=== PATIENT | male | born 1950 | race Caucasian/White ===

== ENCOUNTER 2023-06-22 12:42 | Outpatient (OUT) | payer OTHER, SELFPAY ==
--- NOTE | 2023-06-22 13:32 | P.CN_ITS ---
Consult Note: HPI Data of Consult Patient: new to practice Consult date: 06/22/23 Requesting Physician: Kelley Richard NP Primary Care Provider: Non-Staff Physician, MD Consult Narrative Reason for consult: establish left hip/thigh pain Narrative: Yang Card a pleasant 72 year old male presents for evaluation and management of chronic left hip and thigh pain. Reports a fall from 40ft at age 10 with worsening pain over time. Most significantly increasing over the last few months. Today pain 6/10 sharp shooting radiating to left outer thigh. Pain increased with standing, walking, getting out of a chair, stairs, ADLs, activity, rolling over in bed. Pain improved with ice, lying down, sitting. Recent EMG completed and xray imaging but no results available. Unfortunately has attempted MRIs twice but could not tolerate. Attended PT at [facility] with benefit while engaged, no ongoing improvement. On eliquis, cannot take NSAIDs. Most recently 5+ falls, reports loss os strength and hx of RLS. Hx of polio affecting right leg. In the past he has attempted numerous MRIs and CT scans of lumbar spine but has not been able to complete the imaging. cc:: CC: Kelley Richard NP Review of Systems 2 ROS0 Status of ROS 10 or more systems reviewed and unremark able except as noted in history and below Musculoskeletal Reports: extremity pain and joint pain Meds Home Medications and Allergies Home Medications ?Medication ?Instructions ?Recorded ?Confirmed ?Type allopurinol 100 mg tablet 100 mg PO DAILY 06/22/23 06/22/23 History apixaban 5 mg tablet (Eliquis) 5 mg PO BID 06/22/23 06/22/23 History ascorbic acid (vitamin C) 500 mg 500 mg PO DAILY 06/22/23 06/22/23 History chewable tablet atorvastatin 10 mg tablet 10 mg PO DAILY 06/22/23 06/22/23 History cholecalciferol (vitamin D3) 25 1,000 unit PO DAILY 06/22/23 06/22/23 History mcg (1,000 unit) tablet (Vitamin D3) hydrocodone 5 mg-acetaminophen 325 1 tab PO BID PRN pain #14 tabs 06/22/23 Rx mg tablet losartan 50 mg-hydrochlorothiazide 1 tab PO DAILY 06/22/23 06/22/23 History 12.5 mg tablet metformin 500 mg tablet 500 mg PO BID 06/22/23 06/22/23 History metoprolol tartrate 25 mg tablet 12.5 mg PO BID 06/22/23 06/22/23 History omeprazole 20 mg capsule,delayed 20 mg PO DAILY 06/22/23 06/22/23 History release ropinirole 1 mg tablet 1.5 mg PO DAILY 06/22/23 06/22/23 History tamsulosin 0.4 mg capsule 0.4 mg PO DAILY 06/22/23 06/22/23 History Exam Constitutional Documenting provider has reviewed patient's vital signs: yes Common normals: no apparent distress, oriented x3, healthy appearing, alert and well nourished General appearance: cooperative HENMT Common normals: normocephalic, hearing grossly normal bilaterally and moist oral mucous membranes Head and scalp: normocephalic Eye Common normals: PERRL Pupil: PERRL Neck & C-Spine Common normals: full ROM General: normal visual inspection Chest Common normals: inspection of chest normal Respiratory Common normals: normal respiratory effort, no retractions and no use of accessory muscles Back & Pelvis Lumbar spine/lower back: lumbar ROM normal and straight leg raise negative bilaterally Other: decreased sensation to left lateral thigh strength 4/5 in BLE unable to produce radicular pain Extremity Common normals: normal to inspection and full ROM Other: left hip no pain with internal or external rotation left hip pain following lateral femoral cutaneous nerve Extremity image (front): 2 1. altered sensation increase in sharp shooting pain Neuro Common normals: oriented x3, CN's II-XII intact bilaterally, moves all extremities, no focal motor deficits, no sensory deficits noted and deep tendon reflexes 2+ bilaterally Sensorium/orientation: alert Motor exam: strength 5/5 throughout and no movement abnormalities noted Psych Common normals: mental status grossly normal, thought process normal, cooperative, affect normal, speech normal and activity/motor behavior normal Speech: normal speech Thought process: normal thought process Results Additional Findings Additional findings: If on a controlled substance or opioids, I have checked an OARRS report on this patient and there are no aberrancies noted in the prescribing history.??If on a controlled substance or opioid a drug screen was completed and reviewed within the last year, and if there has not been a drug screen completed we ordered one today to monitor higher risk, state monitored pain medication use. As part of providing excellent, safe, comprehensive care, the following was completed at our patient's visit: 1. A medication reconciliation and review to ensure accurate knowledge of current/active medications, including asking our patients to inform us about any jhwd-sgi-wfyomqm medications or herbal remedies/nutritional supplements/alternative remedies. 2. A review to specifically ensure our patients have had annual screening for screening for depression, screening for tobacco use, and screening for unhealthy alcohol use. For concerning screenings had a discussion with the patient, provided patient education, and recommended follow-up with primary care provider when appropriate. If patient noted with a risk of falling, they received education on strength, gait, and balance training to prevent future risk of falling. Assessment and Plan Assessment and Plan (1) Meralgia paresthetica of left side: (2) Lumbar stenosis with neurogenic claudication: (3) Chronic prescription opiate use: Assessment and Plan: I feel these medications are improving the patient's quality of life and allow them to tolerate activities of daily living as well as participate in recreational activity.? The patient does not report intolerable side effects. The patient is NOT opioid naive and non-pharmacologic and non-opioid treatment has failed to significantly relieve the patient's pain and improve functionality. The patient has a diagnosis that is related to a somatic or visceral pain etiology. ? ?? I reviewed with the patient the potential risks and side effects with the use of? opioid medications including but not limited to respiratory depression,? sedation, and even . I verified the patient has access to naloxone should? these effects occur. I advised the patient to avoid the use of any other? sedation substances including alcohol, THC, and benzodiazepines while? taking opioid medications due to the risk of compounding side effects and? detrimental outcomes. I reviewed the [employer], pain treatment agreement, urine? drug screen, and opioid start talking forms. The patient was advised to let? their family know they had Naloxone in case they would need to administer? the medication.? ?? A drug screen was completed within the last year, and no aberrancies were noted regarding their use of controlled substances. The patient understands they are subject to the terms and conditions of the pain contract that they have signed. ? ?? I have checked an OARRS report on this patient today and there are no aberrancies noted in the prescribing history.? Plan left lateral femoral cutaneous nerve block working towards RFA under fluoroscopy continue HEP as tolerated we will update UDS and take over norco 5-325mg BID PRN 1 week trial. plan to refill 30 day supply after reviewing UDS and prescribe narcan which was discussed today consider lumbar MRI or CT at [facility] to further evaluate lumbar stenosis with NC if needed f/u 1 week after injection
== END 2023-06-22 12:43 ==
PROVIDERS: Visit Provider Nurse Practitioner
DX: G57.12 Meralgia paresthetica, left lower limb (principal); M48.062 Spinal stenosis, lumbar region with neurogenic claudication; Z79.891 Long term (current) use of opiate analgesic
CPT/HCPCS: G0463

== ENCOUNTER 2023-07-24 10:25 | Day surgery (SDC) | payer OTHER, SELFPAY ==
[2023-07-24 11:35] VITALS: BP 167/93; PULSE 71; TEMP 36.3; O2SAT 5
[2023-07-24 11:43] LABS: Glucometer 131 mg/dL (74-106)
[2023-07-24] MEDS: TRIAMCINOLONE ACETONIDE 40 MG/ML VIAL INJ (12:17)
[2023-07-24] MEDS: LIDOCAINE HCL 2% PF 100 MG/5 ML VIAL INJ (12:17)
[2023-07-24] MEDS: BUPIVACAINE HCL 0.25% PF 25 MG/10 ML VIAL INJ (12:17)
[2023-07-24 12:25] VITALS: BP 152/69; BP 159/69; PULSE 79; PULSE 82; O2SAT 97; O2SAT 99
--- NOTE | 2023-07-24 12:25 | W.PM.PROCNOT ---
Date of procedure: 07/24/23 Pre-op diagnosis: Pain due to meralgia paresthetica, left Post-op diagnosis: same as pre-op Procedure: Procedure: Left lateral femoral cutaneous nerve block Medications: Bupivacaine 0.25% 8cc, kenalog 80mg I explained the details of the procedure to the patient including the risks, benefits and alternatives. We had an informed discussion and the patient verbalized understanding and signed the consent form. All questions were answered appropriately.? ? Patient was positioned in the supine position with vitals sign being continuously monitored. Skin was prepped with alcohol and draped with sterile towels. Under ultrasound, the muscle plane of the left sartorius was visualized, after local infiltration with 1% lidocaine 2 cc, a 22 g 4 inch hyperechogenic needle was inserted and advanced under constant ultrasound guidance toward the plane.The needle tip was confirmed in the plane where the nerve was thought to travel. After negative aspiration, the above medication was injected slowly. The needle was removed and pressure was applied to the injection site to decrease the incidence of hematoma formation. A sterile bandage was applied. The patient was transferred to the postoperative area and discharged in good condition. Anesthesia: Local Surgeon: Ever Guillne Pathology: none sent Condition: stable Disposition: no change
== END 2023-07-24 12:33 | disposition home or self-care (01) ==
PROVIDERS: Visit Provider Anesthesiology
DX: G57.12 Meralgia paresthetica, left lower limb (principal); Z79.84 Long term (current) use of oral hypoglycemic drugs
CPT/HCPCS: 36415; 64450; 76942; 82948

== ENCOUNTER 2023-08-03 13:09 | Outpatient (OUT) | payer OTHER, SELFPAY ==
--- NOTE | 2023-08-03 13:16 | P.CN_ITS ---
Consult Note: HPI Data of Consult Patient: known to practice within the last 3 years Consult date: 06/22/23 Requesting Physician: Kelley Richard NP Primary Care Provider: Non-Staff Physician, MD Consult Narrative Reason for consult: establish left hip/thigh pain Narrative: Yang Card a pleasant 72 year old male presents for evaluation and management of chronic left hip and thigh pain. Reports a fall from 40ft at age 10 with worsening pain over time. Most significantly increasing over the last few months. Today pain 3/10 sharp shooting radiating to left outer thigh, increases to 8/10. Pain increased with standing, walking, getting out of a chair, stairs, ADLs, activity, rolling over in bed. Pain improved with ice, lying down, sitting. Recent EMG completed and xray imaging but no results available. Unfortunately has attempted MRIs twice but could not tolerate. Attended PT at [facility] with benefit while engaged, no ongoing improvement. On eliquis, cannot take NSAIDs. Most recently 5+ falls, reports loss of strength and hx of RLS. Hx of polio affecting right leg. In the past he has attempted numerous MRIs and CT scans of lumbar spine but has not been able to complete the imaging unless he lies prone. Recently underwent right Lateral/femoral cutaneous nerve block with 50% improvement in pain and functional ability the following days and weeks, no immediate relief per pt. Reports moderate pain relief from norco 5-325mg BID PRN, denies side effects. cc:: CC: Kelley Richard NP Review of Systems ROS Status of ROS 10 or more systems reviewed and unremark able except as noted in history and below [facility] Medical History (Updated 08/03/23 @ 13:35 by Kelley Richard NP) Diabetes ?E11.9 - Type 2 diabetes mellitus without complications (ICD-10) High cholesterol ?E78.00 - Pure hypercholesterolemia, unspecified (ICD-10) Atrial fibrillation, chronic ?I48.20 - Chronic atrial fibrillation, unspecified (ICD-10) HTN (hypertension) ?I10 - Essential (primary) hypertension (ICD-10) Surgical History (Updated 07/11/23 @ 13:46 by Jasmine Salazar RN) History of knee surgery ?Z98.890 - Other specified postprocedural states (ICD-10) History of back surgery ?Z98.890 - Other specified postprocedural states (ICD-10) Meds Home Medications and Allergies Home Medications ?Medication ?Instructions ?Recorded ?Confirmed ?Type allopurinol 100 mg tablet 100 mg PO DAILY 06/22/23 07/24/23 History apixaban 5 mg tablet (Eliquis) 5 mg PO BID 06/22/23 07/24/23 History ascorbic acid (vitamin C) 500 mg 500 mg PO DAILY 06/22/23 07/24/23 History chewable tablet atorvastatin 10 mg tablet 10 mg PO DAILY 06/22/23 07/24/23 History cholecalciferol (vitamin D3) 25 1,000 unit PO DAILY 06/22/23 07/24/23 History mcg (1,000 unit) tablet (Vitamin D3) losartan 50 mg-hydrochlorothiazide 1 tab PO DAILY 06/22/23 07/24/23 History 12.5 mg tablet metformin 500 mg tablet 500 mg PO BID 06/22/23 07/24/23 History metoprolol tartrate 25 mg tablet 12.5 mg PO BID 06/22/23 07/24/23 History omeprazole 20 mg capsule,delayed 20 mg PO DAILY 06/22/23 07/24/23 History release ropinirole 1 mg tablet 1.5 mg PO DAILY 06/22/23 07/24/23 History tamsulosin 0.4 mg capsule 0.4 mg PO DAILY 06/22/23 07/24/23 History hydrocodone 5 mg-acetaminophen 325 1 tab PO BID PRN pain #60 tabs 06/28/23 07/24/23 Rx mg tablet hydrocodone 5 mg-acetaminophen 325 1 tab PO BID PRN pain #60 tabs 08/01/23 Rx mg tablet hydrocodone 5 mg-acetaminophen 325 1 tab PO BID PRN pain #60 tabs 08/02/23 Rx mg tablet Allergies Allergy/AdvReac Type Severity Reaction Status Date / Time No Known Drug Allergies Allergy Verified 07/24/23 11:41 Exam Constitutional Documenting provider has reviewed patient's vital signs: yes Common normals: no apparent distress, oriented x3, healthy appearing, alert and well nourished General appearance: cooperative HENMT Common normals: normocephalic, hearing grossly normal bilaterally and moist oral mucous membranes Head and scalp: normocephalic Eye Common normals: PERRL Pupil: PERRL Neck & C-Spine Common normals: full ROM General: normal visual inspection Chest Common normals: inspection of chest normal Respiratory Common normals: normal respiratory effort, no retractions and no use of accessory muscles Back & Pelvis Lumbar spine/lower back: ROM limited, pain with ROM, paraspinal muscle tenderness and straight leg raise negative bilaterally Other: decreased sensation to left lateral thigh strength 4/5 in BLE unable to produce radicular pain Extremity Common normals: normal to inspection and full ROM Other: left hip no pain with internal or external rotation left hip pain following lateral femoral cutaneous nerve Neuro Common normals: oriented x3, CN's II-XII intact bilaterally, moves all extremities, no focal motor deficits, no sensory deficits noted and deep tendon reflexes 2+ bilaterally Sensorium/orientation: alert Motor exam: strength 5/5 throughout and no movement abnormalities noted Psych Common normals: mental status grossly normal, thought process normal, cooperative, affect normal, speech normal and activity/motor behavior normal Speech: normal speech Thought process: normal thought process Results Additional Findings Additional findings: If on a controlled substance or opioids, I have checked an OARRS report on this patient and there are no aberrancies noted in the prescribing history.??If on a controlled substance or opioid a drug screen was completed and reviewed within the last year, and if there has not been a drug screen completed we ordered one today to monitor higher risk, state monitored pain medication use. As part of providing excellent, safe, comprehensive care, the following was completed at our patient's visit: 1. A medication reconciliation and review to ensure accurate knowledge of current/active medications, including asking our patients to inform us about any cjnj-iqa-ntujdyj medications or herbal remedies/nutritional supplements/alternative remedies. 2. A review to specifically ensure our patients have had annual screening for screening for depression, screening for tobacco use, and screening for unhealthy alcohol use. For concerning screenings had a discussion with the patient, provided patient education, and recommended follow-up with primary care provider when appropriate. If patient noted with a risk of falling, they received education on strength, gait, and balance training to prevent future risk of falling. Assessment and Plan Assessment and Plan (1) Meralgia paresthetica of left side: (2) Lumbar stenosis with neurogenic claudication: (3) Chronic prescription opiate use: Assessment and Plan: I feel these medications are improving the patient's quality of life and allow them to tolerate activities of daily living as well as participate in recreational activity.? The patient does not report intolerable side effects. The patient is NOT opioid naive and non-pharmacologic and non-opioid treatment has failed to significantly relieve the patient's pain and improve functionality. The patient has a diagnosis that is related to a somatic or visceral pain etiology. ? ?? I reviewed with the patient the potential risks and side effects with the use of? opioid medications including but not limited to respiratory depression,? sedation, and even . I verified the patient has access to naloxone should? these effects occur. I advised the patient to avoid the use of any other? sedation substances including alcohol, THC, and benzodiazepines while? taking opioid medications due to the risk of compounding side effects and? detrimental outcomes. I reviewed the [employer], pain treatment agreement, urine? drug screen, and opioid start talking forms. The patient was advised to let? their family know they had Naloxone in case they would need to administer? the medication.? ?? A drug screen was completed within the last year, and no aberrancies were noted regarding their use of controlled substances. The patient understands they are subject to the terms and conditions of the pain contract that they have signed. ? ?? I have checked an OARRS report on this patient today and there are no aberrancies noted in the prescribing history.? (4) Chronic low back pain: Plan lumbar MRI without contrast to evaluate chronic low back pain and lumbar stenosis with NC. update lumbar xray with flexion and extension continue HEP as tolerated continue current medications, reporting significant functional improvement and pain relief without side effects. f/u after imaging completed
== END 2023-08-03 13:10 | disposition home or self-care (01) ==
LOC: PM 13:09
PROVIDERS: Visit Provider Nurse Practitioner
DX: G57.12 Meralgia paresthetica, left lower limb (principal); M48.062 Spinal stenosis, lumbar region with neurogenic claudication; Z79.891 Long term (current) use of opiate analgesic; M54.50 Low back pain, unspecified
CPT/HCPCS: G0463

== ENCOUNTER 2023-09-01 09:39 | Outpatient (OUT) | payer OTHER, SELFPAY ==
--- NOTE | 2023-09-01 09:44 | CT_ITS ---
[address] [address] Patient Name: ZAINA WINTERS MRN: [id number] date: 1950 Sex: M Assigned Patient Location: CT Current Patient Location: Accession/Order Number: [id number] Exam Date: 09/01/2023 09:50 Report Date: 09/04/2023 08:03 At the request of: ALLEY MOREAU Procedure: CT lumbar spine wo con EXAMINATION: CT lumbar spine wo con HISTORY: Lumbar Stenosis COMPARISON: No relevant comparison available. TECHNIQUE: Axial, Coronal, and Sagittal CT images were created without I.V. contrast material. Dose reduction techniques were achieved by using automated exposure control and/or adjustment of mA and/or kV according to patient size and/or use of iterative reconstruction technique. FINDINGS: PARASPINAL AREA: Vascular calcifications. BONES: Normal alignment of the lumbar spine with no acute fracture or spondylolisthesis. Moderate to severe diffuse degenerative spondylosis and facet osteoarthropathy. DISC LEVELS: 12-L1: No significant disc/facet abnormality, spinal stenosis, or foraminal stenosis. L1-L2: Moderate disc space narrowing with endplate sclerosis and vacuum disc. Mild diffuse disc/osteophyte complex and facet osteoarthropathy. No central canal or left foraminal stenosis. Moderate narrowing of the right neural foramen L2-L3: Moderate disc space narrowing with endplate sclerosis and vacuum disc. Moderate diffuse disc/osteophyte complex and facet osteoarthropathy. No central canal stenosis. Moderate right foraminal stenosis. No left foraminal stenosis L3-L4: Mild disc/osteophyte complex and facet osteoarthropathy mild right foraminal stenosis. No left foraminal stenosis L4-L5: Moderate disc space narrowing with endplate sclerosis and vacuum disc. Moderate disc/osteophyte complex and facet osteoarthropathy. No central canal or right foraminal stenosis moderate left foraminal stenosis L5-S1: Moderate disc space narrowing with endplate sclerosis, left greater than right. Moderate diffuse disc/osteophyte complex and facet osteophytes arthropathy. No central canal stenosis. Mild right and moderate left foraminal stenosis CT/CT lumbar spine wo con IMPRESSION: Degenerative changes resulting in foraminal stenosis at multiple levels as detailed above Electronically authenticated by: RACHELLE DUKE Date: 09/04/2023 08:03
== END 2023-09-01 09:40 | disposition home or self-care (01) ==
LOC: CT 09:39
PROVIDERS: Visit Provider Nurse Practitioner
DX: M48.062 Spinal stenosis, lumbar region with neurogenic claudication (principal); M51.36 Other intervertebral disc degeneration, lumbar region
CPT/HCPCS: 72131

== ENCOUNTER 2023-09-18 14:19 | Outpatient (OUT) | payer OTHER, SELFPAY ==
--- OUTSIDE RECORDS SUMMARY | 2023-09-18 14:39 | XMS_ITS | CCD ---
Author Organization [facility] Care Team Providers Care Slipman Name Role Phone Unavailable Primary Care Provider Unavaileder e MISC, DOCTOR Primary Care Unavailable MATTEVI, ARMANDO Admitting Unavailable MATTEVI, ARMANDO Consulting Unavailable MATJUAN DAVID ARMANDO Attending Unavailable Rupesh Ulrich Unavailable Jeannine Evangelista Primary Care Provider Tonja KIM - Jeannine CASH Primary Care P rovider EJ FOSTER Referring Unavailable JEANNINE EVANGELISTA Primary Care Unavailab Bernie Barrios MD Unavailable [phone] Bernie Adam MD Primary Care Provider EVANS Redd Attending Provider AWAIS Evangelista Primary Care Provider KIERA Evangelista-Byron Paez Primary Care Provider EVANS Redd Attending Provider Marina Redd Attending Unavailable Marina Redd Admrandolph Unavailable Jeannine Evangelista Primary Care Unavailable DAVID AWAD JR Attending UnavailDAVID Rahman JR Referring UnavailJEANNINE Pierce Primary Care Unavailab DAVID Roman JR Attending UnavailDAVID Rahman JR Referring UnavailJEANNINE Pierce Primary Care Unavailab ARIANNA Chew Attending Unavailable MARINA REDD Attending Unavailable MARINA REDD Referring Unavailable MARINA REDD Attending Unavailable MARINA REDD Referring Unavailable YULIYA ROMERO Attending Unavailable MARINA REDD Referring Unavailable YULIYA ROMERO Attending Unavailable KENIA CASTILLO Referring Unavailable YULIYA ROMERO Attending Unavailable MARINA REDD Referring Unavailable YULIYA ROMERO Attending Unavailable MARINA REDD Referring Unavailable YULIYA ROMERO Attending Unavailable MARINA REDD Referring Unavailable YULIYA ROMERO Attending Unavailable MARINA REDD Referring Unavailable MARINA REDD Attending Unavailable MARINA REDD Referring Unavailable JR. AWAD GEORGE C Attending UnavailKENIA Caceres Attending Unavailable BOBBY PINK Attending Unavailable JR. 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 0 Active atorvastatin 10 mg oral tablet (5 sources) HMG-CoA Reductase Inhibitor Start: 12-26-2022 atorvastatin (Lipitor) 10 MG tablet Indications: Other hyperlipidemia (CMS/HCC) TAKE 1 TABLET IN THE MORNING 90 tablet 0 12/26/2022 Active hydroCHLOROthiazide 12.5 mg / losartan potassium 50 mg oral tablet (5 sources) Thiazide Diuretic, Angiotensin 2 Receptor Lex Start: 07-28-2022 take 1 tablet by mouth in the morning losartan-hydroCHLO ROthiazide (Hyzaar) 50-12.5 MG tablet Indications: Primary hypertension (CMS/HCC) Take 1 tablet by mouth in the morning. 90 tablet 0 07/28/2022 Active 3 ml insulin glargine 100 unt/ml pen injector (2 sources) Insulin Analog Start: 12-29-2019 insulin glargine (LANTUS;BASAGLAR) 100 UNIT/ML injection pen Inject 10 Units into the skin 2 times daily 0 12/29/2019 Active Lactobacillus Rhamnosus, GG, (CULTURELLE PO) (6 sources) Lactobacillus Rhamnosus, GG, (CULTURELLE PO) Take by mouth 0 Active metoprolol tartrate 25 mg oral tablet (11 sources) beta-Adrenergic Lex Start: 03-10-2020 take 0.5 tablet by mouth twice daily metoprolol tartrate (LOPRESSOR) 25 MG tablet Take 0.5 tablets by mouth 2 times daily 180 tablet 3 03/10/2020 Active Start: 01-22-2020 take 36-36.9 tablets by mouth twice daily metoprolol tartrate (LOPRESSOR) 25 MG tablet Indications: Persistent atrial fibrillation (HCC) , SOB (shortness of breath) , Fluid retention , Essential hypertension , Other specified diabetes mellitus with other specified complication, unspecified whether terminal gauger insulin use ([facility]) , Class 2 obesity with body mass index (BMI) of 36.0 to 36.9 in adult, unspecified obesity type, unspecified whether serious comorbidity present TAKE 1 TABLET BY MOUTH TWICE DAILY 180 tablet 3 01/22/2020 Active metoprolol tartr ate (Lopressor) 25 MG tablet every 12 (twelve) hours. 0 Active omeprazole 20 mg delayed release oral capsule (11 sources) Proton Pump Inhibitor Start: 01-14-2023 omeprazole (PriLOSEC ) [address] capsule Indications: Gastroesophageal reflux disease without esophagitis TAKE 1 CAPSULE EVERY MORNING BEFORE A MEAL 90 capsule 1 01/14/2023 Active Start: 01-21-2020 take 1 capsule by [facility] once daily omeprazole (PRILOSEC) 20 MG delayed release capsule Take 20 mg by mouth Daily 0 01/21/2020 Active rOPINIRole 1 mg oral tablet (6 sources) Nonergot Dopamine Agonist Start: 10-04-2022 End: 04-02-2023 take 1 tablet by mouth at bedtime rOPINIRole (Requip) 1 MG tablet Indications: Restless legs syndrome Take 1 tablet (1 mg) by mouth at bedtime. 90 tablet 1 10/04/2022 04/02/2023 Active Start: 09-11-2020 rOPINIRole (RE QUIP) 0.25 MG tablet 3 ml sodium chloride 9 mg/ml injection (3 sources) Start: 02-12-2020 0.9 % sodium c hloride infusion Start: 02-12-2020 sodium chlorid e flush 0.9 % injection 10 mL tamsulosin hydrochloride 0.4 mg oral capsule (5 sources) alpha-Adrenergic Lex Start: 12-02-2022 End: 05-31-2023 take 1 capsule by mouth every twenty-four hours in the morning tamsulosin (Flomax) 0.4 MG 24 hr capsule Indications: Benign prostatic hyperplasia with nocturia Take 1 capsule (0.4 mg) by mouth in the morning. 90 capsule 1 12/02/2022 05/31/2023 Active tiZANidine 4 mg oral tablet (5 sources) Central alpha-2 Adrenergic Agonist Start: 11-01-2022 take 1 tablet by mouth every eight hours for muscle spasms tiZANidine (Zanaflex) 4 MG tablet Indications: Acute left-sided low back pain with left-sided sciatica Take 1 tablet (4 mg) by mouth every 8 (eight) hours if needed for muscle spasms for up to 5 days. 15 tablet 0 11/01/2022 Active VITAMIN D, CHOLECALCIFEROL, PO (5 sources) VITAMIN D, CHOLECALCIFEROL, PO Vitamin D 0 Active Completed/Discontinued Medications Medication Drug Class(es) Dates Sig (Normalized) Sig (Original) digoxin 0.125 mg oral tablet (3 sources) Cardiac Glycoside Start: 01-22-2020 End: 02-12-2020 take 36-36.9 tablets by mouth once daily digoxin (LANOXIN) 125 MCG tablet Indications: Persistent atrial fibrillation (HCC) , SOB (shortness of breath) , Fluid retention , Essential hypertension , Other specified diabetes mellitus with other specified complication, unspecified whether skilled nursing insulin use (HCC) , Class 2 obesity with body mass index (BMI) of 36.0 to 36.9 in adult, unspecified obesity type, unspecified whether serious comorbidity present Take 1 tablet by mouth daily 90 tablet 3 01/22/2020 02/12/2020 Discontinued (Stop Taking at Discharge) 2 ml fentaNYL 0.05 mg/ml injection (1 source) Opioid Agonist Start: 02-12-2020 End: 02-12-2020 fentaNYL (SUBLIMAZE) injection 3 ml insulin lispro 100 unt/ml pen injector (3 sources) Insulin Analog Start: 12-29-2019 End: 02-12-2020 insulin lispro, 1 Unit Dial, 100 UNIT/ML SOPN Inject 2-10 Units into the skin 0 12/29/2019 02/12/2020 Discontinued (LIST CLEANUP) losartan potassium 25 mg oral tablet (1 source) Angiotensin 2 Receptor Lex Start: 01-30-2020 End: 02-12-2020 take 0.5 tablet by mouth once daily losartan (COZAAR) 25 MG tablet Take 0.5 tablets by mouth daily 45 tablet 1 01/30/2020 02/12/2020 Discontinued (LIST CLEANUP) 2 ml midazolam 1 mg/ml injection (2 sources) Benzodiazepine Start: 02-12-2020 End: 02-12-2020 midazolam (VERSED) injection Problems Active Problems Problem Classification Problem Date Documented Date Episodic/Chronic Cardiac dysrhythmias (19 sources) Unspecified atrial fibrillation; 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: [Persistent atrial fibrillation] Onset: 12-17-2019 01-22-2020 Chronic Diabetes mellitus with complications (1 source) Type 2 diabetes mellitus with diabetic nephropathy; 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: [Type 2 diabetes mellitus with diabetic nephropathy] Onset: 08-30-2021 Chronic Diabetes mellitus without complication (10 sources) Diabetes mellitus; 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: [Type 2 diabetes mellitus well controlled] Onset: 01-02-2020 Chronic Disorders of lipid metabolism (11 sources) Mixed hyperlipidemia; 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: [Hyperlipidemia] Onset: 12-12-2018 Resolved: 10-04-2022 07-18-2022 Chronic Esophageal disorders (5 sources) Gastroesophageal reflux disease without esophagitis; 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: [Gastro-esophageal reflux disease without esophagitis] Onset: 07-18-2022 07-18-2022 Chronic Essential hypertension (16 sources) Essential hypertension; 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: [Essential (primary) hypertension] Onset: 01-22-2020 01-22-2020 Chronic Fracture of neck of femur (hip) (1 source) Stress fracture, left femur, initial encounter for fracture; 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: [Stress fracture, left femur, initial encounter for fracture] Onset: 06-14-2023 Episodic Gout and other crystal arthropathies (10 sources) 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; 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: [Idiopathic chronic gout, left ankle and foot, without tophus (tophi)] Onset: 07-29-2015 07-18-2022 Chronic Nutritional deficiencies (5 sources) Vitamin D deficiency; 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: [Vitamin D deficiency, unspecified] Onset: 05-14-2020 10-04-2022 Chronic Osteoarthritis (10 sources) Bilateral osteoarthritis of knees; 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: [Bilateral primary osteoarthritis of knee] Onset: 10-04-2022 10-04-2022 Chronic Other aftercare (1 source) MCFP (current) use of anticoagulants; 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: [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] Onset: 05-03-2022 Episodic Other connective tissue disease (5 sources) Artificial knee joint present; 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: [Presence of unspecified artificial knee joint] Onset: 03-03-2021 10-04-2022 Chronic Other connective tissue disease (5 sources) History of total knee arthroplasty; 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: [Presence of left artificial knee joint] Onset: 03-15-2021 10-04-2022 Chronic Other connective tissue disease (1 source) Pain in bilateral legs; 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: [Pain in right leg] Episodic Other connective tissue disease (1 source) Pain of left thigh; 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: [Pain in left thigh] 03-23-2023 Episodic Other connective tissue disease (2 sources) Pain in bilateral legs; 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: [Pain in both lower extremities] Other hereditary and degenerative nervous system conditions (5 sources) Restless legs; 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: [Restless legs syndrome] Onset: 07-28-2022 07-28-2022 Chronic Other infections; including parasitic (5 sources) Post-viral disorder; 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: [Litx-LCUDU-05 condition] Onset: 04-27-2020 10-04-2022 Chronic Other inflammatory condition of skin (5 sources) Psoriasis; 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: [Psoriasis, unspecified] Onset: 06-26-2017 10-04-2022 Chronic Other lower respiratory disease (3 sources) Shortness of breath; 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: [SHORTNESS OF BREATH] Onset: 12-16-2019 Episodic Other lower respiratory disease (4 sources) Dyspnea; 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: [Shortness of breath] Episodic Other nervous system disorders (5 sources) Difficulty walking; 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: [Difficulty in walking, not elsewhere classified] Onset: 03-07-2021 10-04-2022 Chronic Other nutritional; endocrine; and metabolic disorders (4 sources) Obesity; 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: [Obesity, unspecified] Chronic Other nutritional; endocrine; and metabolic disorders (1 source) Morbid (severe) obesity due to excess calories; 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: [Morbid (severe) obesity due to excess calories] Onset: 05-03-2022 Chronic Peripheral and visceral atherosclerosis (6 sources) Peripheral vascular disease; 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: [Peripheral vascular disease, unspecified] Onset: 08-30-2021 10-04-2022 Chronic Residual codes; unclassified (3 sources) Body fluid retention; 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: [Fluid retention] Episodic Sprains and strains (1 source) Strain of muscle of left thigh; 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: [Strain of unspecified muscles, fascia and tendons at thigh level, left thigh, subsequent encounter] 03-23-2023 Episodic Unclassified (1 source) COVID-19; 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: [COVID-19] Onset: 12-18-2019 Unclassified (1 source) Other persistent atrial fibrillation; 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: [Other persistent atrial fibrillation] Onset: 03-10-2020 Unclassified (1 source) Personal history of COVID-19; 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: [Personal history of COVID-19] Onset: 05-03-2022 Past or Other Problems Problem Classification Problem Date Documented Da te Episodic/Chronic Diabetes mellitus without complication (5 sources) Impaired fasting glycemia; 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: [Impaired fasting glucose] Onset: 12-12-2018 10-04-2022 Episodic Mycoses (5 sources) Tinea pedis; 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: [Tinea pedis] Onset: 11-28-2018 10-04-2022 Episodic Other acquired deformities (5 sources) Acquired unequal leg length; 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: [Unequal limb length (acquired), unspecified site] Onset: 05-26-2021 10-04-2022 Episodic Other VISION SPECIALIST infection and poliomyelitis (10 sources) H/O: poliomyelitis; 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: [Personal history of poliomyelitis] Onset: 07-29-2015 10-04-2022 Episodic Other non-traumatic joint disorders (5 sources) Hip pain; 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: [Pain in left hip] Onset: 10-25-2022 10-25-2022 Episodic Other upper respiratory disease (5 sources) Pain in face; 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: [Other specified disorders of nose and nasal sinuses] Onset: 12-12-2018 10-04-2022 Episodic Pneumonia (except that caused by tuberculosis or sexually transmitted disease) (17 sources) Other viral pneumonia; 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: [Viral pneumonia] Onset: 12-16-2019 01-22-2020 Episodic Residual codes; unclassified (5 sources) Peripheral edema; 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: [Edema, unspecified] Onset: 11-28-2018 10-04-2022 Episodic Spondylosis; intervertebral disc disorders; other back problems (5 sources) Acute low back pain; 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: [Acute left-sided low back pain without sciatica] Onset: 10-25-2022 10-25-2022 Episodic Viral infection (12 sources) Other specified viral infection; 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: [COVID-19] Onset: 12-16-2019 01-22-2020 Episodic Results Test Name Value Interpretation Reference Range Facility Basic Metabolic Profon 05-03 Anion gap [Moles/Vol] 11 mmol/L Normal 9-17 [facility] Comment on above: Performed By: #### C REMI, BMP #### [facility] [address] [place] [address] [place] [address] Strap Folding Machine Operator: Anuj Palacio MD BUN/CRE Ratio 23 High 9- [facility] Comment on above: Performed By: #### C REMI, BMP #### [address] [place] [address] Strap Folding Machine Operator: Anuj Palacio MD Calcium [Mass/Vol] 9.1 mg/dL Normal 8.6-10.4 [facility] Comment on above: Performed By: #### C REMI, BMP #### [facility] [address] [place] [address] Strap Folding Machine Operator: Anju Palacio MD Chloride [Moles/Vol] 102 mmol/L Normal 98-107 [facility] Comment on above: Performed By: #### C REMI, BMP #### [facility] [address] [place] [address] Strap Folding Machine Operator: Anuj Palacio MD CO2 [Moles/Vol] 27 mmol/L Normal 20-31 [facility] Comment on above: Performed By: #### C REMI, BMP #### [facility] [address] [place] [address] Strap Folding Machine Operator: Anuj Palacio MD Creatinine [Mass/Vol] 0.78 mg/dL Normal 0.70-1.20 [facility] Comment on above: Performed By: #### C BC, BMP #### [facility] [address] [place] [address] Strap Folding Machine Operator: Anuj Palacio MD GFR/1.73 sq M.predicted among non-blacks MDRD (S/P/Bld) [Vol rate/Area] mL/min/{1.73_m2} Normal >60 [facility] Comment on above: Result Comment: These results are not intended for use in patients <18 years of age. eGFR results are calculated without a race factor using the 2020 CKD-EPI equation. Careful clinical correlation is recommended, particularly when comparing to results calculated using previous equations. The CKD-EPI equation is less accurate in patients with extremes of muscle mass, extra-renal metabolism of creatine, excessive creatine ingestion, or following therapy that affects renal tubular secretion. Performed By: #### C BC, BMP #### [address] [place] [address] Strap Folding Machine Operator: Anuj Palacio MD Glucose [Mass/Vol] 119 mg/dL High 70-99 [facility] Comment on above: Performed By: #### C BC, BMP #### [facility] [address] [place] [address] Strap Folding Machine Operator: Anuj Palacio MD Potassium [Moles/Vol] 3.9 mmol/L Normal 3.7-5.3 [facility] Comment on above: Performed By: #### C BC, BMP #### [facility] [address] [place] [address] Strap Folding Machine Operator: Anuj Palacio MD Sodium [Moles/Vol] 140 mmol/L Normal 135-144 [facility] Comment on above: Performed By: #### C BC, BMP #### [address] [place] [address] Strap Folding Machine Operator: Anuj Paalcio MD Urea nitrogen [Mass/Vol] 18 mg/dL Normal 8-23 [facility] Comment on above: Performed By: #### C BC, BMP #### [address] [place] [address] Strap Folding Machine Operator: Anuj Palacio MD CBCon 05-03-2022 Erythrocyte distribution width (RBC) [Ratio] 13.5 % Normal 11.8-14.4 [facility] Comment on above: Performed By: #### C BC, BMP #### [address] [place], [place] [id number] Strap Folding Machine Operator: Anuj Palacio MD Hematocrit (Bld) [Volume fraction] 42.6 % Normal 40.7-50.3 [facility] Comment on above: Performed By: #### C BC, BMP #### [address] [place], [place] [id number] Strap Folding Machine Operator: Anuj Palacio MD Hemoglobin (Bld) [Mass/Vol] 13.6 g/dL Normal 13.0-17.0 [facility] Comment on above: Performed By: #### C BC, BMP #### [address] [place] [address] Strap Folding Machine Operator: Anuj Palacio MD MCH (RBC) [Entitic mass] 29.6 pg Normal 25.2-33.5 [facility] Comment on above: Performed By: #### C BC, BMP #### [address] [place] [address] Strap Folding Machine Operator: Anuj Palacio MD MCHC (RBC) [Mass/Vol] 31.9 g/dL Normal 28.4-34.8 [facility] Comment on above: Performed By: #### C BC, BMP #### [address] [place], [place] [id number] Strap Folding Machine Operator: Anuj Palacio MD MCV (RBC) [Entitic vol] 92.8 fL Normal 82.6-102.9 [facility] Comment on above: Performed By: #### C BC, BMP #### [address] [place], [place] [id number] Strap Folding Machine Operator: Anuj Palacio MD NRBC Automated 0.0 per 100 WBC Normal 0.0 [facility] Comment on above: Performed By: #### C BC, BMP #### [address] [place], [place] [id number] Strap Folding Machine Operator: Anuj Palacio MD Platelet mean volume (Bld) [Entitic vol] 10.4 fL Normal 8.1-13.5 [facility] Comment on above: Performed By: #### C BC, BMP #### [address] [place], [place] [id number] Strap Folding Machine Operator: Anuj Palacio MD Platelets (Bld) [#/Vol] 182 10*3/uL Normal 138-453 [facility] Comment on above: Performed By: #### C BC, BMP #### [address] [place], [place] [id number] Strap Folding Machine Operator: Anuj Palacio MD RBC (Bld) [#/Vol] 4.59 10*6/uL Normal 4.21-5.77 [facility] Comment on above: Performed By: #### C BC, BMP #### [address] [place], [place] [id number] Strap Folding Machine Operator: Anuj Palacio MD WBC (Bld) [#/Vol] 6.0 10*3/uL Normal 3.5-11.3 [facility] Comment on above: Performed By: #### C BC, BMP #### [address] [place], [place] [id number] Strap Folding Machine Operator: Anuj Palacio MD Coding Summaryon 10-25-2021 Coding Summary HTMLBase 64 VrcgzmylPVx5oJs+PGhl YWQ+PB8APGGiJ35vbOBh mG0CP8aHNR0CCJIXCYJL FD7XEW2kkAZ1YWnnJ1Nv biAv RqxobXKhFU09UJh3YUF4 xBaxBLsrxE6pyUEmU7k3 BnFqGI61nQ90QIawKIQv XxL4YaExyqaqfXOa W2gmUaDkoPSxLre+PHRh YmxlIHdpZHRoPScxMDAl TtTaqThqFS0wLg7eNXIy LWNvbGxhcHNlOiBj p0wnGTDsACerVE1rtNcv Y9KtcJW7SAHot7m4Si96 dHI+VYNcLLM6bUigOBql n020KrOwy6fzOSU6 nOZtKDyeASB4Q32wy9D2 GMQnKQLyPGE2yME5tE9f qRmbnzqvK0MlpFEdUyP8 HBY0vAEnrD8wlDcl upcliN3uZso+R69JGE1F JQKRWS8EWdv7F3QyHmca dHI+QH03SWUkPK07tALd wINps5tclLx6PfUt BBYkTCB7dLlaNOiww2Ug TMCvY20qwSBsu1U2RAUm xDnuxRZcZjUecFE2bL3g WQirelswn9wutwju Whzjt8puzi22wL39X44u RKomMXLrVLR0QPLgFMRs lWznuj2feI8wJq9+IDxj l4jso4pheYu7NqSn GBUongYfpGsuCXG3v8Kg Fu09X7HkiIdri5OiSzg1 sp87qMMsg7U3aNY9PUtz BMEljL2qOIxhZoO5 MBYkPpWdvJ70dCAeBQga Jp1mtQjthTqhTN1eSYTy fhpeIJCoxV8jERLbcNOj bBahGM5yRZScvays q936WrQdRCS8WKQmnXOk B0VviI0iClLsQKOqVXKv C2PcuQBwJResB756GLbv BjY6NSIfnfIxF4Vp AGZddFnqZpO3r0B8Db2P q2RcuemiYNQ1OXyiVWP9 DjReJaJyOuN4H9KaLja7 SWOdyOtqHW5zJ3Xn OGMwwcbqywwoyUN6TIQk DECafL92eZPzXFwqXr5e e3S4b989SVMxQILovI20 Rv8pwAdpSLWgjZPG kX7rbshle9zuczebNkJa YSVfSTz6QIk7HHMnjFbo ShOdCDJ9EsN2EVH0vVXx jQ3bfRbkerdjqH4e Oyc+T24byH0aICY4CJE4 wlxyWBZjjwQcYQ94UZ19 Y8LxMtupuXKrbPU+PGRp faOgjNmjHG1iLsNp b8tvd9WmPGfkG1YaWWLq XZfiUzx3ACHxWHO8vTH0 jH0qZZGsYLbtv2O8dXE8 I9NqykMpoj1rc6yk OVHgCFwgF04vsLRol5F7 SKDyeRU0VSZlmOlgXuEa cZ67Hpu+GETszQwtc3Wq Ujlvj9ggk5mzaMi5 IjMwJSIgdmFsaWduPSJ0 f8YlHt06I05xLTacOWBa NBRwEGSzSWCsgFkjdi2i oI3rSs3+PGNvbCB3 fQY2oZ8sDHHhSqS5KYxx D861YlHrsZJpFbfmz1jb w7bdiVa3DfFhHMZjpbOk aKudTOS5x9McBi88 M82xXKvdAPCoWJViJHHh SZAgnEswuy3ozD5jXm1+ MB2lp1iruc61hU62yPS+ HNJaODC2aVekQEot TGHfbV3rJNcxJjL2WLZn IyArdZ41bKTiHWqtMx8h aPembCjsTP3yOOVykrkm r089CvHeb0prHCHw kNLlLRiuJWY9W69az2O5 WFGvLQVhSWQ6tOU5kH2f bGlnbjogbGVmdDsgdmVy uMqvGZwmPRqfX834 IHRvcDsnPlBhdGllbnQg SgMeQRh9M2DuNvl1BOEl kUiaNB0mxDCtHNzwDr9y oIvafZfnCI7oSBPs darhj031YlYwq4bkMWRz xDRjVHbzWPM3U88wq1Y8 EVBkRZXbFBH5dQR8wN2y bGlnbjogbGVmdDsg daItaXvxVSunJLyqT316 IHRvcDsnPkJpcnRoIERh tFQ5GT63CC68uOQhu8Z4 tCR6W2GgATVopqrn kxgsrVS7GFGxJTKhaG91 Vq5oyUakNe2oAQKmNJV6 IMYuoNRsJ3ShdP9iHiUa GQMoMWUnM6DcoJNo OUobW716TUmeFeY5JCUf ciPwG2SyAOAbfQaeQeA1 w3N9Fi7HM0C4IT46EK57 qWZfl8P7iMP5R5Yw TOZqjgaphliksPZ4DQYr PALzrF37Tk0uhDygZz3q CRYxPPY1HASyuZXhQ5Ly xK6aXdMvDRIvWYSq B4RdqVLrICdnK518VScz JdL6OYNoqzAyK9DkCYLn oPznHlZ1x9P8Ws5URCk7 CM12YW07oMMby9X8 zSR8K4TqNLHiyivgkqic zAM4WOCaOZXkxG35Zl2o bGefJf2aOQXiXAX2BQCp qNOdD2JohD3nLdXo LCUzFLQoX5PsvEVvAIlr I220NTdnUdY8NJXijbRc Q0JqXRZbgTawTbG0u4L2 Bz3OSVIiKZ78QYF5 kRU1TC53IC49Z0KmQefw dGFibGU+PHRhYmxlIHdp ZHRoPScxMDAlJyBzdHls NF5qBl9yNLDpZGLc iTbecSMeFeSms2ueVLWp QMssLH0elXycS6KgnZX7 OIFph7d0Vc44E60vX7Yc dXA+ESVfoCU0mQC4 aN6eDrDaVsI8VKxrO791 TxNigAFkEskci1ses8ig zXz9XhX0QPEplcHtsYfk SHO8u3UnEw41V56o IHdpZHRoPSIxNSUiIHZh wKzmwi0epN2uMj5+PGNv vVY1aNH4cS9zPbVuKbC7 WHlmY169GoGmyEEl Rizle9swy6nswXe4EsJt TRWsruShyOcnROE5l2Sy Mp31O7YfgTzzb8LeJpm6 vu91hWUsu8T1gUQ7 L9UmJCTeidasvHHcsOht HX3vHNUsbucyFZXpwH4o OFSuZ6r5JfRlOlE5DYmw Y2XvocL8SFErsAUc VCimQKB5C67ht1Q9CLYw DGYuWMX1uBU4wO3waKiz bjogbGVmdDsgdmVydGlj VKzyLAvvC331RRCe mBesUUAfkV9aSCJvgKXv rFoyPM1lUBUwyavmFbnK QkVSTElORywgTEFXUkVO A6OeFNcvgWB+PHRk QJT7iVhhMIgnYYHmwX4t JVJcC1u0YgWiKoT3XItk E3ZeNNUezpjkZo42mA9v WiKhKmN9VTvjV9Ik rnD7RCRwtVZhLIclSPF6 X19zy0F5ZCOlSFQzGVE4 lYO4bT9znDwhxwaozGCy dDsgdmVydGljYWwt QQftU012NCWmdJdlOsI4 VnApWgE2RFn3H3MfFsr4 FUKmaOmoEV6eaBQwOBai Gd6amQmltOnyGM7w NQXciiuuDQCbfC5mISMj eOPqzQvyIT1fUCKvnreu t990JvTbLWI3UCUrfEEe J2UsfU0jLcCsJIXk HLXuF3FdtBGfUOygM695 NZlhNqP3XXMisoNsD7Yu XLIsrCjiFsW4k7J8Hs72 MyBZZWFyczwvdGQ+ LTHnTEC2zSgwRXbkFGLb yW4nWZOnZ0q3MzUkRtL3 JMnlK5TgMYXrfjfgSq33 nG8wHvAhNvM1XKkk B1AxmfI8KJSvzKOeCMqc DEU5X67zb0D9CKVpLBYi JQJ2gBW0wH1scGtqqnrn bGVmdDsgdmVydGlj JMobSTrnT941KMWmuTnz Dh0ISPB2E9KzVxk3MRZg yTexYP2btEBgTEkrTm2z jYqnwDvaNF2aOOMs ivemWSDraQ2dLLOwqNPh cKndLA5gQQWcbywtt841 JuRqPYC5SIOadHDkJ7Dq tW9lKbCgEYUvXKKw Z9QidQUsQHtoV049DLbe ZgW7XXBuwyGhG2IjVYKa gAkoPgX7f7Q0Oc7HSTzf dGQ+ON96dv80F4Py EgwsLfw2VNJrWQU5rMJ7 qL8xYUUnKPumt7A5lET8 V7FavjEmjc0vu0nfMZGe EPumQ52oxAQgq5J6 HGUpbYD4UTIjzYjqQxZj lR68Pcy+ACMjfWnwh3Xq Ffxqb0orw3uqtAr5KrPk JSIgdmFsaWduPSJ0 p8HrNz87V62rTWyqITQi TDFcZGFoNGOgdXnpku1l tE2tWb9+FNRepTE5cJF4 fX8lPvDgAkW6FEcd W074IbSwzANjYqads2hl i9agtKq6ZrVjRLFcqlZz kCosTOK2m6GnEb90C0Db oHdlk2MnEwm9wi07 gRZhf3U1jEU8X1YgDUWc vxuaeLMucCapBB1jEONa imomMTSffX3iLTXyV5m8 BsPtFdB9TQcsW7Es ryS1YPKavNElCRUoiMII iB5lfsaip5drjhwkFsYf HCHlRDj4WCw7GRTttEqo LgJwDOI0AtL1EEI1 dPKwbX3czKdsovcpdS3g Oyc+CLn3l5znoOZwHV5f oUY1KH37BD63mSXbh1P5 uQD5O1FvTMFqunpv kezkhDG5QWHzUJQtuQ26 Of6diUyjPi0gGAQsMMR6 APSdgKIyX6XdoM1bNhNw SZAjDMHfT3SgmFIg QDxeI684KEqqOqV4GRLp alJhX1HbTROutZjeZwE0 c5Z9Ti1XAF63OV17DB25 dCMbd1G7kWS1E8Rp WWPopwdgrsehmZN7UNHn OFIstQ74Ab2hjJakLb7a HCPrPFL3ZYKhzVIkU8Ep rO5pSbFdBOZkKXPx W4OmtJHkXBzzM509XOzr XcR3YMZgwfJnC8RuEIWr rQohQeQ1n5Q5Cd8DBe57 NK32VO08tLWxm2I7 kTV6B2AdMYWcldtpbhoj uKN2VQQxOUCffO75At5e aAmyIx8jNBMhMIU8DDKe kSOfS7NghD0yDoFm NSBgIJUnM5YblPNiSGaj Z228EEngIhC7EYDfqxSt T0TnIQCneBfsBfY6t3I5 Gb2UQAfbkuc4O3Ts PjwvdHI+NG91DDYtKW09 hZUrdIGlz2xxbIv8XlUz KMVfQPO9wYpfJIzkl7Lj FJZaG85pjSRaa2H2 IGN (more content not included)... [facility] Coding Summaryon 10-04-2021 Coding Summary HTMLBase 64 MyvwygrjSJr9gUf+PGhl YWQ+ZS7CLSDwH41mgEXj bU2LM1lPRD0IYAVGLVLW EK6BZS0wiCK4IIfkF6Me biAv EdkxaKSuKE90TLz0SKB7 jUfwNNlqnT4deIZsN8a8 ZdJqTN36fA01UChqOSGv GoC9VaJuvfzmwOOu Y0zbPbKwqGEyYvv+PHRh YmxlIHdpZHRoPScxMDAl IpRbbLqkYX6sBf8cVCEc LWNvbGxhcHNlOiBj w9phXUMgYSrrOD3reHbe N2FciED1OZDrr2h3Ox50 dHI+SUJxHNC8fWylWLrs x653IcZtx5byEPF5 bNDtYSlyRPG0S20es8Z9 MFJsJAJtMJY7oMI8kB8d tOvvyuywA6GqnJPrKlQ6 TYM8wTGkcO2rzSfd ylpkrS1kHtj+V53BCQ9O BAXAXF3IPlg1A9WmNgeo dHI+DJ05KNCsZV60gZBm bEQci3vuuCc3QdQa GWWrQTC4jDgvNGpvl4Fq JAMqC63ilADwx6Y3PYFo lLwwtHBhNkVonIX8pM6p IZobykrmj9bcgmuq Haugx9xeyr86gH02F44c TMeqCJWdVEE3SIWhBAKh wPhfwd4gtI8wFx7+IDxj j9xrh6wbyXl9ZkVl HKXqxzSnvTulPMW0o3Al Ez50Y2UoiGsir8QoLlb7 nk99nWQcl5O1cVU8MFyf BCOmtC7eDQdaKpM6 TRXtKoSkrN63wZTcVJfj Cj2btIxqlIuiUN5iTKOu uxmrAETipS0gRWWvdQLf sJdnOK7vZBVsqriw s656UbBqPZX3KUOfjEWu F1QktU3tHcDsZDCgYWNk M3RupFOuFZxkZ194WYxr ErI1QHBklkJbN7Nr NKIvlDzrSrU8a3H5Pm9V e1CjcyctBQY9FNbqCKA4 MoXrFoKnDwJ5R7SqKrn9 TLWgwAteYE0cE3Py ZNWligffbvwjqAQ2TDBf ZWTknY69rMMhHBkhTs5f c8Z5o978PNKtTBJqgF40 Gl5guWmzISCuyMJX dH5etcjpd0lpevzeDmYo HUGwRZt7BSr4GYNltEyn DbUeYMT2LxL4RVZ6jGCi sO7rwXciiyqywL8x Oyc+X53fqY8wORT7GKY4 ncctOFHnbvYcRZ29SU82 B3GwWtoxwYIvsDZ+PGRp jvFfgKnvRF9eHaEs g4mhp3AbKBnbI3WqZNBg URxeRmt4SULgPDC1bBR2 zV4vNNWtPJonh1O0xLL7 H3OhmnRnca9am7yc PBRhXYjeU75sbJGcy6S7 QRNkiWW7HFVatPdqRyCg wK74Fcm+YBYjcAssy9Je Pcyrl6nvp0zmoYa4 IjMwJSIgdmFsaWduPSJ0 u9HqJk14V74bXWniMDKy HLXoMGTqYFFjfRtkop9d lK5bLv2+PGNvbCB3 kVJ8bX2kNOBeCiI7HWav T090HqDdhCUyAljly6zc k8dzzMc4SqPqXWFooaZb lQmbJPY4r0PxHx32 X75pZGnaEUIoMZFiTYYe ZUIaoXqkqg6toN4rJj6+ KK9bb2liyo21wK95tPC+ WMMiFLR3sTlnNKcx SHMojR8xSMqxJiC3FYLf LtNkiY81aHQaWRsyBf2z hLlfbBltPQ6kVNQrjbjb c136CxSop2nvTWCe gCXoMLokNCS2V68cd2Q8 QXDkIJAuLDT9zWB8eJ8r bGlnbjogbGVmdDsgdmVy zJfmPNjgJEukH529 IHRvcDsnPlBhdGllbnQg SeMpUNx1C2YyLxo8BRQh wVbhMF2biVUrFDxzQg8r bXmigTgtOF3rQEXm qmkys870SqLnq0iiHORb fXNqLOlhCVZ5G06oj4L6 NCThLGFyUGK9hTT9vL9j bGlnbjogbGVmdDsg aaXelInpGFntGKnuO323 IHRvcDsnPkJpcnRoIERh dBD5IK08JM99dZWtv6V5 hOF2J0VbQDMzlgfq wwjlgMA5WWZeQSWaeS43 Sv7usBpyRx0wYWKiRYY8 WBChkKPcR8ChgT4tWxGk MRTsMEObG8CluVJj WZuxT358OJvaDmR7CHHe adBdB8RtBHSejYuvZuF0 d5F2Tj8AZ0U6HN59UC18 gYFbh4Y3gXR7L0Mj HMRrvrrnctdbiCB4AIZp UNLuyJ76Ol6nrKhwZz5e TQDdETN0AJBynDSyP2Ep tB5lQcNcXEJiLZEb M5JyjWQsPDttZ207EXhl UyI3PBHgafZbA8KcESPb uJziPwN3p9J5Lc0QDBn3 TW95HO05nWYlk0N2 cYN4B6FtYULqgjqdwmns bZM6QCNiVUJfmR21Xc4r nYhrSy9wQCGrCZX3MBKz gWHyZ1ZcaJ8xHmIv MZJgAJBqX1ExhVYuHJip C161CWfeIbF5JESeliWl E3AtYLBqoJlmQkI7z1M9 Nf9YVRNbFJ26DEN5 sCI2XK02PJ17N2FbAwcl dGFibGU+PHRhYmxlIHdp ZHRoPScxMDAlJyBzdHls LT3lIv6bFDUiPUNp uFdwkKFaXlVnq1ulFZAs ZPqsNR3goXseG7CcbCV4 DUXzx3l8Hk35R84bU9Qu dXA+EJXpzLY9wMV5 vT8fTkLmTbG5QAekP451 UyHnjPNaFukjp5fcj0dt kXu7WxZ6AMBaqaQvbQap QGO7p7EjPh65T96a IHdpZHRoPSIxNSUiIHZh bCksdr9kjZ5mNp4+PGNv qCJ6bKG2mP1nLrWvZqO3 WPxuR206HbYgfPHa Xpbae8kqe6ngfOh3EqXi KGZidzEaoKdnGIO9g2Ci Aw54N4QwoDaqb5LyAsi9 ld87yKOrg7Q8hWD2 D6EiZIZemmlnfPXdfByq TS7lLEWiemmtSFRhaE5a FXXtL6v8YxAlBkS8RBts M9ZklkB6OZZsqXVc YFqpHOK2X26jw0U8LJLx AOKkBRA3pFG8zI9xpWsy bjogbGVmdDsgdmVydGlj WIckNQfhL691GMZp vOleUDYawY0aSAGxcVTx wWmyJO6fTDIokmamXnkF QkVSTElORywgTEFXUkVO N5DcKBkjpHC+PHRk PYC3eJqvRYwcXCMkcF9n TSCuU4k6OrLvDuU2QMon W8AoJJJfnvszWl48pB0x AlJuXmR3PQykG5Uy vhE1SBXhlUVjAMdsWQM7 L52wo7G0IKMjQDQpRPZ5 mQJ8bJ1ytAajbqhtjJWw dDsgdmVydGljYWwt UYptK195LJTebKicLcY7 DoBnGeZ8BZq3R1XjCpf8 LQZmxEwiVO3soBXcWCkw Uw6aiNplpIcpIC3x JKJhvpquIWWmhR2qCBSr iAGbqXkbMI4rFCMeyyvk j490UoHjMFY1YXRuxCOj E1QsfO0bVzBpBQPb VDFaD0CfnLWsYGtiD101 QUpyWwR2SXWzfkIvF4Hn VXDuoPrnKfB2b4F5Tv97 MyBZZWFyczwvdGQ+ WGAyKFJ3iCzhDOwmGUHf aZ1uQTGzS5b7LsNdOsK1 GGyyW9EmRBGuvtcwLb68 sV6iMmRwUjY5PUws B2XoxnL8PAHbjOSgZKxf EZZ3T58ja7V9SLFyBNEc OMH8sHA9mB9lyBrylpqn bGVmdDsgdmVydGlj PKwvQQehV464DDMsbTto At9NJGV3O5CeVmj1SDWq vXjrYM8edUPnLXmuIn4r dYucnFnrKK4rCQUy xftzSVPvuT5hOXBqhGRl yGjkUH8nHYPfldeqy459 PvYxXBH9MHQwkGThF2Br aW2kCrHuKXRcTJVd W3QlrMWbHKjxY462QFfz DnM6EOYmvcNwE1FiDCVm rRexCiK7h6T8Sb3WFwNx cnZhdGlvbjwvdGQ+ QC83te97P8JlMcjoKwh4 TDXlKPF1cIJ7vU4hPBUh ZFajz0E4fFI4A2WjjkJu jk5fy5mrZDVtRJrl P11fjLFar7I3ZEKssOW8 KRWcdMigXlUaeC38Hea+ FOOoaBhqc6KzYijrk2wq l3uaiKc1ZsSmNHVb rmOpiOmoVOX6l6NgHf67 N16eUCluBFCtPRWsCGBw WTXsgTfqnw9bxK4oJl0+ CHIloWJ5bZA9fA3r WkEqWrU4ODgyY783MoAd iNOwIibbc1nai8ozaCe2 IjIwJSIgdmFsaWduPSJ0 f5MwPi66Y1RqsLvy o4JfIai7pg54oTOgl0M2 iFL0N9HoJUClwbiaiYOb oHogMC1kCYIiemfjUCWx uO5vFSCiU9i1GnWz JvG3HSndC8FdspL3BMIq gKUxUCCvaZORnE0pwmzy n6podytdUvHbKDQlFQu9 GHi4LVWzbLwvGeXu WVX4LzF4YEE1rILlpP6w dAkuzrlbaG1zFio+UGh5 z5frqCRqFF4iwPI1QK85 IX87sXRbg1R0bET2 V3FkGLXysbapmtsugSO0 EWHhHDMpiG85Yk0xyPsl Hx0tTHUlRVF0KCUkgUPi T3TfqK3jZlAsCDUh OYCaV6YavDZxITggB909 TOvtUdS2HGInpzUdL5Kz DEDgfIjaCgM4q2I8Dd6P OH79YV83CG25uJXs h4H1kAF4S7UlOILpmlct wuxmwSL3MGLkAPEzgC45 Kc4eaLxhOl8pYBOfJNK9 QPElnRIoU7AfcT8e BoZdRDWkWVAvR4UpsEHn RKijK645WXvkVrY8BKDo ouUsD9AaYZFkgLboTdR5 i5Y4Cf9MTu30LV06 LD73cJTqf1P2iLZ0S9Op JCZcnxqpinujzCL1TOLe JHYyyN91Kj4ssXkoYi9h VBWlXOX9JGHfeGVp Y4PytH2lIeLzZXRuGTQg J6AfyEUgXBjlH255WDzq FhE8OIQnywHsI8GsKZIg jVhhKwS1r4R9Dd8T NXjcigt2A7BrEniutPR+ HJ81FXIyET31fCBbwYNx a5upyOq4WsWkKUQlPQI8 yCoeVFjlt0LyBBDp Y29 (more content not included)... [facility] Consent Formson 09-23-2021 Consent Forms [id number] #1.00OTGTIFF [facility] Consent Formson 09-20-2021 Consent Forms [id number] [facility] 09-20-2021 MAGR Postoperative Record MAGR Phase II Record Summary Primary Physician: DAVID AWAD DO Finalized Date/Time: 09/20/21 10:05:40 Pt. Name: ZAINA WINTERS/Sex: 1950 MALE Med Rec #: [id number] Physician: DAVID AWAD DO Financial #: [id number] Pt. Type: O Room/Bed: [facility]/1 Admit/Disch: 09/17/21 08:03:00 - 09/18/21 12:10:00 Institution: Phase II Case Times MAGR Pre-Care Text: Patient is free from s/s of injury. Patient remains free from compromised physical state related to surgery or anesthesia. Patient comfort maintained. Patient/family verbalize understanding of discharge instructions. Entry 1 In PACU II 09/17/21 15:16:00 Discharge from PACU 09/17/21 16:05:00 II Last Modified By: Vianca Celaya RN 09/20/21 10:05:39 Post-Care Text: The patient remains free from s/s of injury. Patient's vital signs stable, circulation maintained, return to preop mental and physical status, opsite/dressing intact, minimal or absent nausea and vomiting, tolerates po intake. Patient verbalizes adequate pain control. Patient/family express understanding of discharge instructions. Finalized By: Vianca Celaya RN Document Signatures Signed By: Vianca Celaya RN 09/20/21 10:05 [facility] Outside Recordson 09-20-2021 Outside Records [id number] [facility]-20-2021 Provider Orders [id number] [facility] [id number] [facility] Telemetry Stripson Telemetry Strips [id number] [facility] Electronic Messagingon 09-19 Electronic Messaging --- --- --- --- --- --- --- --- --- From: Direct[employer] ([email or web address]), Directkenny To: ZAINA WINTERS Sent: 09/19/21 04:18:10 AM EDT Subject: Discharge Summary Ready to View A summary regarding your recent visit is available in the Documents section of your Health Record. [facility] .Auto Diff 109-18-2021 Auto Isabela % 9 % Normal 02-24 [facility] Comment on above: Performed By: #### 1 [id number], [id number], [id number] #### [facility] (DEFAULT) [address] [place] [address] Baso Abs# 0.0 x10 Normal 0.0-0.2 [facility] Comment on above: Performed By: #### 1 [id number], [id number], [id number] #### [facility] (DEFAULT) [address] [place] [address] Basophils/100 WBC (Bld) 0.0 % Low 0.2-2.0 [facility] Comment on above: Performed By: #### 1 [id number], [id number], [id number] #### [facility] (DEFAULT) [address] [place] [address] Eos Abs# 0.0 x10 Normal 0.0-0.4 [facility] Comment on above: Performed By: #### 1 [id number], [id number], [id number] #### [facility] (DEFAULT) [address] [place] [address] Eosinophils/100 WBC (Bld) 0.0 % Low 0.9-4.0 [facility] Comment on above: Performed By: #### 1 [id number], [id number], [id number] #### [facility] (DEFAULT) [address] [place] [address] Lymph Abs# 1.2 x10 Low 1.3-2.9 [facility] Comment on above: Performed By: #### 1 [id number], [id number], [id number] #### [facility] (DEFAULT) [address] [place] [address] Lymphocytes/100 WBC (Bld) 9 % Low 14-48 [facility] Comment on above: Performed By: #### 1 [id number], [id number], [id number] #### [facility] (DEFAULT) [address] [place] [address] Isabela Abs# 1.3 x10 High 0.0-0.8 [facility] Comment on above: Performed By: #### 1 [id number], [id number], [id number] #### [facility] (DEFAULT) [address] [place] [address] Neut Abs# 11.6 x10 High 1.5-9.2 [facility] Comment on above: Performed By: #### 1 [id number], [id number], [id number] #### [facility] (DEFAULT) [address] [place] [address] Neutrophils/100 WBC (Bld) 82 % Normal 44-88 [facility] Comment on above: Performed By: #### 1 [id number], [id number], [id number] #### [facility] (DEFAULT) [address] [place] [address] CBC w/ Auto Diffon 2 Erythrocyte distribution width (RBC) [Ratio] 14.0 % Normal 11.5-15.0 [facility] Comment on above: Performed By: #### 1 [id number], [id number], [id number] #### [facility] (DEFAULT) [address] [place] [address] Hematocrit (Bld) [Volume fraction] 36.8 % Normal 34.8-51.9 [facility] Comment on above: Performed By: #### 1 [id number], [id number], [id number] #### [facility] (DEFAULT) [address] [place] [address] Hemoglobin (Bld) [Mass/Vol] 11.9 g/dL Normal 11.8-17.7 [facility] Comment on above: Performed By: #### 1 [id number], [id number], [id number] #### [facility] (DEFAULT) [address] [place] [address] Instr WBC 14.2 x10 Invalid Interpretation Code [facility] Comment on above: Performed By: #### 1 [id number], [id number], [id number] #### [facility] (DEFAULT) [address] [place] [address] Man Diff? Auto Normal [facility] Comment on above: Performed By: #### 1 [id number], [id number], [id number] #### [facility] (DEFAULT) [address] [place] [address] MCH (RBC) [Entitic mass] 30 pg Normal 24-34 [facility] Comment on above: Performed By: #### 1 [id number], [id number], [id number] #### [facility] (DEFAULT) [address] [address] MCHC (RBC) [Mass/Vol] 32 g/dL Normal 26-37 [facility] Comment on above: Performed By: #### 1 [id number], [id number], [id number] #### [facility] (DEFAULT) [address] [place] [address] 48645 MCV (RBC) [Entitic vol] 94 fL Normal 81-100 [facility] Comment on above: Performed By: #### 1 [id number], [id number], [id number] #### [facility] (DEFAULT) [address] [place] [address] 44100 Platelet 181 x10 Normal 138-427 [facility] Comment on above: Performed By: #### 1 [id number], [id number], [id number] #### [facility] (DEFAULT) [address] [place] [address] Platelet mean volume (Bld) [Entitic vol] 10.4 fL High 6.3-10.2 [facility] Comment on above: Performed By: #### 1 [id number], [id number], [id number] #### [facility] (DEFAULT) [address] [place] [address] 14742 RBC 3.92 x10 Normal 3.70-5.30 [facility] Comment on above: Performed By: #### 1 [id number], [id number], [id number] #### [facility] (DEFAULT) [address] [place] [address]2338 WBC 14.2 x10 High 3.5-10.5 [facility] Comment on above: Performed By: #### 1 [id number], [id number], [id number] #### [facility] (DEFAULT) [address] [place] [address] 15464 Electrolyte Panel Standardon 09-18-2021 Anion gap [Moles/Vol] 12.0 mmol/L Normal 5.0-19.0 [facility] Comment on above: Performed By: #### 1 [id number], [id number], [id number] #### [facility] (DEFAULT) [address] [place] [address] 58198 Chloride [Moles/Vol] 98 mmol/L Low 101-111 [facility] Comment on above: Performed By: #### 1 [id number], [id number], [id number] #### [facility] (DEFAULT) [address] [place] [address] 65099 CO2 [Moles/Vol] 28 mmol/L Normal 21-32 [facility] Comment on above: Performed By: #### 1 [id number], [id number], [id number] #### [facility] (DEFAULT) [address] [place] [address]3501 Potassium [Moles/Vol] 3.8 mmol/L Normal 3.6-5.1 [facility] Comment on above: Performed By: #### 1 [id number], [id number], 3743421 #### [facility] (DEFAULT) [address] [place] [address] 40038 Sodium [Moles/Vol] 134.0 mmol/L Low 136.0-144.0 [facility] Comment on above: Performed By: #### 1 [id number], [id number], [id number] #### [facility] (DEFAULT) [address] [place] [address] 13113 Inpatient Patient Summaryon 09-18-2021 Inpatient Patient Summary [address] [address] Patient Discharge Instructions Name: ZAINA WINTERS : 1950 Patient Address: [address] [place] [address] Primary Care Provider: Name: Jeannine Hurley After you are discharged if you find you have any questions, please, call [phone] ext [phone] to speak to a nurse. Discharge Diagnosis: Acute pain of right knee Prescription Information: If you have been given a prescription for narcotics, seek immediate medical attention if you have any difficulty breathing or any sudden status changes such as confusion and sleepiness. If you or anyone you know is experiencing suicidal thoughts, mental health, alcohol and/or drug addiction problems; contact the [facility] 05/09 Crisis Hotline -Text 4HOPE to 313222. If you received any narcotics, sedation, or any other medication that causes drowsiness for the next 24 hours, unless otherwise directed: ? Do not drive a car. ? Do not operate machinery such as power tools, lawn mowers, drills, sewing machines, or stoves ? Avoid alcoholic beverages and drugs for allergies, nerves, or sleep ? Do not make important personal or business decisions or sign any legal documents [facility] would like to thank you for allowing us to assist you with your healthcare needs. The following includes patient education materials and information regarding your injury/illness. ZAINA WINTERS has been given the following list of follow-up instructions, prescriptions, and patient education materials: Follow-up Instructions With: Address: When: Marina Redd [address] [place] [address], [facility] [address] [address] Business (1) 10/01/2021 11:00 AM Medications During the course of your visit, your medication list was updated with the most current information. The details of those changes are reflected below: Medications That Were Updated - Follow Below Instructions Other Medications Updated: apixaban (Eliquis 2.5 mg oral tablet) 1 tab(s) Oral 2 times a day. Refills: 0. Medications to Continue That Have Not Changed Printed Prescriptions acetaminophen-oxycod one (!-Percocet 5/325 oral tablet) 1 tab(s) Oral every 6 hours as needed for pain for 7 Days. Refills: 0. Other Medications allopurinol (allopurinol 100 mg oral tablet) 1 tab(s) Oral every day. ascorbic acid (Vitamin C 1000 mg oral tablet) 1 tab(s) Oral every day. ferrous sulfate (ferrous sulfate 325 mg (65 mg elemental iron) oral delayed release tablet) 1 tab(s) Oral every day. hydrochlorothiazide- losartan (hydrochlorothiazide -losartan 12.5 mg-50 mg oral tablet) 1 tab(s) Oral every day. metoprolol (Metoprolol Tartrate 25 mg oral tablet) 0.5 tab(s) Oral 2 times a day. multivitamin with minerals (Vitamin D with Minerals oral tablet) 1 tab(s) Oral every day. omeprazole (omeprazole 20 mg oral delayed release capsule) 1 cap(s) Oral every day. rOPINIRole (rOPINIRole 1 mg oral tablet) 1 tab(s) Oral every day. No Longer Take the Following Medications acetaminophen (acetaminophen 500 mg oral tablet) 2 tab(s) Oral Every 4 hours as needed for pain. It is important to always keep an active list of medications available so that you can share with other providers and manage your medications appropriately. As an additional courtesy, we are also providing you with your final active medications list that you can keep with you. acetaminophen-oxycod one (!-Percocet 5/325 oral tablet) 1 tab(s) Oral every 6 hours as needed for pain for 7 Days. Refills: 0. allopurinol (allopurinol 100 mg oral tablet) 1 tab(s) Oral every day. apixaban (Eliquis 2.5 mg oral tablet) 1 tab(s) Oral 2 times a day. Refills: 0. ascorbic acid (Vitamin C 1000 mg oral tablet) 1 tab(s) Oral every day. ferrous sulfate (ferrous sulfate 325 mg (65 mg elemental iron) oral delayed release tablet) 1 tab(s) Oral every day. hydrochlorothiazide- losartan (hydrochlorothiazide -losartan 12.5 mg-50 mg oral tablet) 1 tab(s) Oral every day. metoprolol (Metoprolol Tartrate 25 mg oral tablet) 0.5 tab(s) Oral 2 times a day. multivitamin with minerals (Vitamin D with Minerals oral tablet) 1 tab(s) Oral every day. omeprazole (omeprazole 20 mg oral delayed release capsule) 1 cap(s) Oral every day. rOPINIRole (rOPINIRole 1 mg oral tablet) 1 tab(s) Oral every day. Take only the medications listed above. Contact your doctor prior to taking any medications not on this list. Medication leaflets, if any, will display below Diet & Activity Patient Activity Level: As Tolerated Patient Diet: Regular Patient Activity Restrictions: Discontinue Alcohol Use, No driving, No heavy lifting, Stop Smoking Patient education materials, if any, will display below POST OPERATIVE TOTAL KNEE/HIP DISCHARGE INTRUCTIONS SURGEONS WRITTEN INSTRUCTIONS: Walk with walker; bear weight to tolerance (more content not included)... [facility] Pharmacy Noteon 09-18-2021 Pharmacy Note I have personally reviewed the patient's medication list upon discharge including, prescription medications, OTC products, vitamins and supplements. Below are the following medications the patient is discharged on. Medications That Were Updated - Follow Below Instructions Other Medications Updated: apixaban (Eliquis 2.5 mg oral tablet) 1 tab(s) Oral 2 times a day. Refills: 0. Medications to Continue That Have Not Changed Printed Prescriptions acetaminophen-oxycod one (!-Percocet 5/325 oral tablet) 1 tab(s) Oral every 6 hours as needed for pain for 7 Days. Refills: 0. Other Medications allopurinol (allopurinol 100 mg oral tablet) 1 tab(s) Oral every day. ascorbic acid (Vitamin C 1000 mg oral tablet) 1 tab(s) Oral every day. ferrous sulfate (ferrous sulfate 325 mg (65 mg elemental iron) oral delayed release tablet) 1 tab(s) Oral every day. hydrochlorothiazide- losartan (hydrochlorothiazide -losartan 12.5 mg-50 mg oral tablet) 1 tab(s) Oral every day. metoprolol (Metoprolol Tartrate 25 mg oral tablet) 0.5 tab(s) Oral 2 times a day. multivitamin with minerals (Vitamin D with Minerals oral tablet) 1 tab(s) Oral every day. omeprazole (omeprazole 20 mg oral delayed release capsule) 1 cap(s) Oral every day. rOPINIRole (rOPINIRole 1 mg oral tablet) 1 tab(s) Oral every day. No Longer Take the Following Medications acetaminophen (acetaminophen 500 mg oral tablet) 2 tab(s) Oral Every 4 hours as needed for pain. Counseled patient on why Eliquis was decreased to prevent bleeding post op. No other changes made and patient did not have questions on pain medication. [Electronically Signed on: 09/18/2021 10:36 EDT] Emiliano Montgomery [Verified on: 09/18/2021 10:36 EDT] Emiliano Montgomery [facility] Progress Note - Nurseon 08-0 Progress Note - Nurse Discharged to home. Prescriptions and instructions reviewed with and given to pt. He verbalized understanding. Taken to awaiting vehicle via wheelchair. All belongings sent with pt. [Electronically Signed on: 09/29/2021 14:49 EDT] Mildred David RN [Verified on: 09/29/2021 14:49 EDT] Mildred David RN [facility] Progress Note - Nurse POC discussed with pt. Educated on safety and ADL care once discharge home. He verbalized understanding [Electronically Signed on: 09/29/2021 14:49 EDT] Mildred David RN [Verified on: 09/29/2021 14:49 EDT] Mildred David RN [facility] Anesthesia Noteon 09-17-2021 Anesthesia Note Patient: ZAINA WINTERS Age: 70 years Sex: MALE : 1950 Associated Diagnoses: None Author: Eugene Castaneda MD Postoperative Information Post Operative Note: Operative Day. Anesthetic utilized: General. 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 Assessment Anesthetic outcome No anesthetic complications noted. Pain controlled. No N/V. Hydration appears adequate. VSS. Pt only concerned about sitting up Plan Transfer/ Discharge: Patient can be discharged from PACU when criteria met. Condition good. [Electronically Signed on: 09/17/2021 14:12 EDT] Eugene Castaneda MD [Verified on: 09/17/2021 14:12 EDT] Eugene Castaneda MD [facility] Anesthesia Note Patient: ZAINA WINTERS Age: 70 years Sex: MALE : 1950 Associated Diagnoses: None Author: Eugene Castaneda MD Preoperative Information Anesthesia history: Patient history: Pt had GA with adductor canal block for other knee in February. Unable to do ipack due to size of his leg, No difficult intubation, No malignant hyperthermia. Family history: No malignant hyperthermia. Review of Systems Constitutional: Negative. Respiratory: Negative, denies ever being tested for sleep apnea, No shortness of breath. Cardiovascular: No chest pain. Gastrointestinal: GERD controlled with prilosec. Musculoskeletal: Joint pain. Neurologic: Alert and oriented X4. Health Status Allergies: Allergic Reactions (All) No Known Medication Allergies Current medications: Home Medications (11) Active acetaminophen 500 mg oral tablet 1,000 mg = 2 tab(s), PRN, PO, q4hr allopurinol 100 mg oral tablet 100 mg = 1 tab(s), PO, Daily Eliquis 2.5 mg oral tablet 2.5 mg = 1 tab(s), PO, BID Eliquis 5 mg oral tablet 5 mg = 1 tab(s), PO, BID ferrous sulfate 325 mg (65 mg elemental iron) oral delayed release tablet 325 mg = 1 tab(s), PO, Daily hydrochlorothiazide- losartan 12.5 mg-50 mg oral tablet 1 tab(s), PO, Daily Metoprolol Tartrate 25 mg oral tablet 12.5 mg = 0.5 tab(s), PO, BID omeprazole 20 mg oral delayed release capsule 20 mg = 1 cap(s), PO, Daily rOPINIRole 1 mg oral tablet 1 mg = 1 tab(s), PO, Daily Vitamin C 1000 mg oral tablet 1,000 mg = 1 tab(s), PO, Daily Vitamin D with Minerals oral tablet 1 tab(s), PO, Daily Problem list (past medical history): All Problems Atrial fibrillation / SNOMED CT 03909267 / Confirmed FH: hypertension / SNOMED CT 963893196 / Confirmed History of post-polio syndrome / SNOMED CT 315699569 / Confirmed Aftercare following left knee joint replacement surgery / SNOMED CT 714055560 / Confirmed Resolved: COVID-19 / SNOMED CT 4922307708 Resolved: Diabetes / SNOMED CT 216719914 Histories Family History: CA - Cancer of colon Grandparent Heart attack Mother Grandparent Tobacco user Mother Father Brother Procedure history: Arthroplasty of knee using cement ([id number]) on 03/02/2021 at 70 Years. Back ([id number]). Comments: 02/04/2021 10:08 Oliva Van RN surgery Social History Electronic Cigarette/Vaping Assessment Electronic Cigarette Use: Never. Alcohol Assessment Use: Current. Beer, 1-2 times per week Tobacco Assessment Never (less than 100 in lifetime) Tobacco Use:. Substance Abuse Assessment Substance use: Never. Employment/School Assessment Retired Home/Environment Assessment Lives with Spouse. Living situation: Home/Independent. Home equipment: Cane, Walker. Nutrition/Health Assessment Regular, Caffeine intake amount: one cup of coffee daily. . Social & Psychosocial Habits Alcohol 09/01/2021 Alcohol Use: Current Type: Beer Frequency: 1-2 times per week Employment/School 09/01/2021 Status: Retired Home/Environment 09/01/2021 Lives with: Spouse Living situation: Home/Independent Home equipment: Cane, Walker Nutrition/Health 09/01/2021 Type of diet: Regular Caffeine intake amount: one cup of coffee daily Substance Abuse 09/01/2021 Substance use: Never Tobacco 02/04/2021 Smoking tobacco use: Never (less than 100 in l Electronic Cigarette/Vaping 09/01/2021 Electronic Cigarette Use: Never . Physical Examination VS/Measurements Vital Signs (last 24 hrs) Last Charted Heart Rate Peripheral 65 bpm (SEP 17 08:05) Resp Rate 18 br/min (SEP 17 10:10) SBP H 177 mmHg (SEP 17 10:10) DBP 90 mmHg (SEP 17 10:10) Airway: Mallampati classification: II (soft palate, fauces, uvula visible). Temporomandibular joint mobility: Good. Mouth: Adequate opening, Dentures ( Upper dentures ). Neck: Full range of motion. Respiratory: Lungs are clear to auscultation. Cardiovascular: Regular rhythm. Neurologic: Alert, Oriented. Review / Management Laboratory Results Plan [employer] [employer]#(A SA) physical status classification: Class III. Anesthetic Preoperative Plan Anesthesia: General. , Regional adductor canal block for post op pain control per surgeon request. Anesthetic plan, risks, benefits, and alternatives discussed with the patient and/or family. Patient verbalized understanding. [Electronically Signed on: 09/17/2021 11:19 EDT] Eugene Castaneda MD [Verified on: 09/17/2021 11:19 EDT] Eugene Castaneda MD [facility] MAGR Intraoperative Recordon 09-17-2021 MAGR Intraoperative Record MAGR Intra-Op Record Summary Primary Physician: DAVID AWAD DO Finalized Date/Time: 09/17/21 14:17:42 Pt. Name: ZAINA WINTERS /Sex: 1950 MALE Med Rec #: [id number] Physician: DAVID AWAD DO [facility] #: [id number] Pt. Type: D Room/Bed: [facility]/ Admit/Disch: 09/17/21 08:03:00 - Institution: Case Times MAGR Entry 1 Patient In Room Time 09/17/21 10:17:00 Out Room Time 09/17/21 14:10:00 Anesthesia Start Time 09/17/21 10:18:00 Stop Time 09/17/21 14:10:00 Surgery Start Time 09/17/21 11:07:00 Stop Time 09/17/21 13:59:00 Last Modified By: Zhanna Urrutia RN 09/17/21 14:17:36 Case Attendance MAGR Entry 1 Entry 2 Entry 3 Case Attendee DAVID AWAD Robert M MD Baumer, Erica RN Role Performed Surgeon - Primary Anesthesiologist of Supervisor Microfilm Duplicating Unit Record Time In 09/17/21 10:35:00 09/17/21 10:17:00 09/17/21 10:17:00 Time Out 09/17/21 13:32:00 09/17/21 14:10:00 09/17/21 14:10:00 Procedure Arthroplasty Knee Arthroplasty Knee Arthroplasty Knee Total(Right, Knee) Total(Right, Knee) Total(Right, Knee) Last Modified By: Zhanna Urrutia RN, Erica RN Baumer, Erica RN 09/17/21 14:17:37 09/17/21 14:17:37 09/17/21 14:17:37 Entry 4 Entry 5 Entry 6 Case Attendee Sue Rodriguez CST, Kelly CST Meyer PA-C, Matthew J Role Performed Sterile Proc Tech Scrub Personnel Physican Formulation Technician Time In 09/17/21 10:17:00 09/17/21 10:17:00 09/17/21 11:32:00 Time Out 09/17/21 14:10:00 09/17/21 14:10:00 09/17/21 14:10:00 Procedure Arthroplasty Knee Arthroplasty Knee Arthroplasty Knee Total(Right, Knee) Total(Right, Knee) Total(Right, Knee) Last Modified By: Zhanna Urrutia RN, Erica RN Baumer, Erica RN 09/17/21 14:17:37 09/17/21 14:17:37 09/17/21 14:17:37 General Comments: Bill (Gabriela) Surgical Procedures MAGR Pre-Care Text: A.20 Verifies operative procedure, surgical site, and laterality Im.150 Develops individualized plan of care Entry 1 Procedure Arthroplasty Knee Total Primary Procedure Yes Primary Surgeon DAVID AWAD DO Modifiers Right, Knee Surgeon Comment RIGHT TOTAL KNEE Start 09/17/21 11:07:00 ARTHROPLASTY (GABRIELA) Stop 09/17/21 13:59:00 Anesthesia Type General Surgical Service Orthopedics Wound Class Clean Technique Details Closure Technique Primary Entire procedure No was performed via laparoscope or robotic assistance Last Modified By: Zhanna Urrutia RN 09/17/21 14:17:38 Post-Care Text: O.730 The patient's care is consistent with the individualized perioperative plan of care General Case Data MAGR Pre-Care Text: A.350.1 Classifies surgical wound Entry 1 Case Information OR MAGR OR 01 Case Level Level 5 Wound Class Clean Specialty Orthopedics ASA Class 3 Diagnosis Preop Diagnosis DJD RIGHT KNEE Postop Same As Preop Yes Postop Diagnosis DJD RIGHT KNEE Blunt or No Is the procedure No penetrating injury considered occured prior to Emergent/Urgent? the start of the procedure: Last Modified By: Zhanna Urrutia RN 09/17/21 11:18:47 Post-Care Text: O.760 Patient receives consistent and comparable care regardless of the setting General Comments: PATIENT'S FAMILY UPDATED AT 1116, 1154 AND 1257 Time Out MAGR Entry 1 Time out date/time 09/17/21 11:06:00 All team members Yes have introduced themselves by name and role Surgeon, Yes Surgeon reviews Yes anesthesia, nurse critical or confirm patient, unexpected steps, site, procedure operative duration, anticipated blood loss Anesthesia team Yes Nursing team Yes reviews any reviews sterility patient-specific (including concerns indicator results) and equipment issues/concerns Antibiotic Antibiotic Yes Administration Time 10:20 prophylaxis given within the last 60 minutes Is essential Yes imaging displayed? Last Modified By: Zhanna Urrutia RN 09/17/21 11:19:10 Patient Positioning MAGR Pre-Care Text: A.280 Identifies baseline musculoskeletal status Im.40 Positions the patient Im.80 Applies safety devices Entry 1 Procedure Arthroplasty Knee Body Position Supine Total(Right, Knee) Left Arm Position Extended on padded arm Right Arm Position Extended on padded arm board board Left Leg Position Extended Right Leg Position Extended Feet Uncrossed? Yes Press Points Checked Yes Positioning Device Arm Boards, Arm Strap, Outcome Met (O.80) Yes Pillow, Safety Strap Last Modified By: Zhanna Urrutia RN 09/17/21 11:19:24 Post-Care Text: E.290 Evaluates musculoskeletal status O.80 Patient is free from signs and symptoms of injury related to positioning Skin Prep MAGR Pre-Care Text: A.30 Verifies allergies Im.270 Performs skin preparation Im.270.1 Implements protective measures to prevent skin and tissue injury due to chemical sources Entry 1 Skin Prep Syntegrity Prep Agents (Im.270) 7.5% Povidone-Iodine Prep By Zhanna Urrutia RN Scrub 10% Povidone-Iodine [place] Prep Area (more content not included)... [facility] MAGR Intraoperative Record MAGR Intra-Op Record Summary Primary Physician: Finalized Date/Time: 09/17/21 10:39:41 Pt. Name: SINGHZAINA /Sex: 1950 MALE Med Rec #: [id number] Physician: DAVID AWAD DO Financial #: [id number] Pt. Type: D Room/Bed: [facility] Admit/Disch: 09/17/21 08:03:00 - Institution: Case Times MAGR Entry 1 Patient In Room Time 09/17/21 09:55:00 Out Room Time 09/17/21 10:10:00 Anesthesia Start Time 09/17/21 09:56:00 Stop Time 09/17/21 10:05:00 Surgery Start Time 09/17/21 10:02:00 Stop Time 09/17/21 10:05:00 Last Modified By: Vianca Celaya RN 09/17/21 10:32:40 Case Attendance MAGR Entry 1 Entry 2 Entry 3 Case Attendee Eugene Castaneda MD, Ruth RN Richards RN, Brayan Altamirano Role Performed Anesthesiologist of Supervisor Microfilm Duplicating Unit Supervisor Microfilm Duplicating Unit Record Time In 09/17/21 09:55:00 09/17/21 09:55:00 09/17/21 09:55:00 Time Out 09/17/21 10:10:00 09/17/21 10:10:00 09/17/21 10:10:00 Procedure Adductor Canal Adductor Canal Adductor Canal Block(Right, Knee) Block(Right, Knee) Block(Right, Knee) Last Modified By: Vianca Celaya RN 09/17/21 Vianca Celaya RN 09/17/21 Vianca Celaya RN 09/17/21 10:34:41 10:34:41 10:34:41 Surgical Procedures MAGR Pre-Care Text: A.20 Verifies operative procedure, surgical site, and laterality Im.150 Develops individualized plan of care Entry 1 Procedure Adductor Canal Block Primary Procedure Yes Primary Surgeon Eugene Castaneda MD Modifiers Right, Knee Surgeon Comment ADDUCTOR CANAL BLOCK Start 09/17/21 10:02:00 PRIOR TO RIGHT TOTAL KNEE Stop 09/17/21 10:05:00 Anesthesia Type Regional Block Surgical Service Anesthesia Wound Class Clean Technique Details Closure Technique N/A Entire procedure No was performed via laparoscope or robotic assistance Last Modified By: Vianca Celaya RN 09/17/21 10:34:35 Post-Care Text: O.730 The patient's care is consistent with the individualized perioperative plan of care General Case Data MAGR Pre-Care Text: A.350.1 Classifies surgical wound Entry 1 Case Information OR MAGR Proc Room Case Level None Wound Class Clean Specialty Anesthesia ASA Class 3 Diagnosis Preop Diagnosis ADDUCTOR CANAL BLOCK Postop Same As Preop Yes PRIOR TO RIGHT TOTAL KNEE Postop Diagnosis ADDUCTOR CANAL BLOCK PRIOR TO RIGHT TOTAL KNEE Blunt or No Is the procedure No penetrating injury considered occured prior to Emergent/Urgent? the start of the procedure: Last Modified By: Vianca Celaya RN 09/17/21 10:35:29 Post-Care Text: O.760 Patient receives consistent and comparable care regardless of the setting Time Out MAGR Entry 1 Time out date/time 09/17/21 09:55:00 All team members Yes have introduced themselves by name and role Surgeon, Yes Surgeon reviews Yes anesthesia, nurse critical or confirm patient, unexpected steps, site, procedure operative duration, anticipated blood loss Anesthesia team Yes Nursing team Yes reviews any reviews sterility patient-specific (including concerns indicator results) and equipment issues/concerns Antibiotic Antibiotic N/A prophylaxis given within the last 60 minutes Last Modified By: Vianca Celaya RN 09/17/21 10:35:53 Patient Positioning MAGR Pre-Care Text: A.280 Identifies baseline musculoskeletal status Im.40 Positions the patient Im.80 Applies safety devices Entry 1 Procedure Adductor Canal Body Position Semi-Fowlers Block(Right, Knee) Left Arm Position Resting at Side Right Arm Position Resting at Side Left Leg Position Extended Right Leg Position Extended Feet Uncrossed? Yes Press Points Checked Yes Outcome Met (O.80) Yes Last Modified By: Vianca Celaya RN 09/17/21 10:36:23 Post-Care Text: E.290 Evaluates musculoskeletal status O.80 Patient is free from signs and symptoms of injury related to positioning Skin Prep MAGR Pre-Care Text: A.30 Verifies allergies Im.270 Performs skin preparation Im.270.1 Implements protective measures to prevent skin and tissue injury due to chemical sources Entry 1 Skin Prep Syntegrity Prep Agents (Im.270) Chlorhexidine Gluconate Prep By Eugene Castaneda MD and Alcohol Prep Area (Im.270) Thigh Prep Area Details Right Skin Prep Agent Dry Yes Without Pooling Hair Removal Syntegrity Hair Removal Methods No hair removal performed Outcome Met (O.100) Yes Last Modified By: Vianca Celaya RN 09/17/21 10:36:47 Post-Care Text: E.10 Evaluates for signs and symptoms of physical injury to skin and tissue O.100 Patient is free from signs and symptoms of chemical injury Departure from OR MAGR Entry 1 Present on Depart N/A Via Stretcher Post-op Destination Workman Skin DFO Condition Warm Description Condition Dry Description Report Given To Zhanna Urrutia RN Airway Maintenance Patient Status Stable Oxygen in Use? No Last Modified By: Vianca Celaya RN 09/17/21 10:37:33 Case Comments Finalized By: Vianca Celaya RN Document Signatures Signed By (more content not included)... [facility] PACU Record MAGR PACU Record Summary Primary Physician: DAVID AWAD DO Finalized Date/Time: 09/17/21 15:19:58 Pt. Name: ZAINA WINTERSO.B./Sex: 1950 MALE Med Rec #: [id number] Physician: DAVID AWAD DO Financial #: [id number] Pt. Type: D Room/Bed: 229/1 Admit/Disch: 09/17/21 08:03:00 - Institution: PACU Case Times MAGR Entry 1 In PACU I 09/17/21 14:10:00 Discharge from PACU 09/17/21 15:15:00 I Last Modified By: Vianca Celaya RN 09/17/21 15:19:57 Finalized By: Vianca Celaya RN Document Signatures Signed By: Vianca Celaya RN 09/17/21 15:19 Normal [facility] MAGR Preoperative Recordon 0 09-17-2021 MAGR Preoperative Record MAGR Pre-Op Record Summary Primary Physician: DAVID AWAD DO Finalized Date/Time: 09/17/21 10:43:23 Pt. Name: ZAINA WINTERS Carmen HannaB./Sex: 1950 MALE Med Rec #: [id number] Physician: DAVID AWAD DO Financial #: [id number] Pt. Type: D Room/Bed: 229/1 Admit/Disch: 09/17/21 08:03:00 - Institution: Pre-Op Case Times MAGR Pre-Care Text: Patient will be optimally prepared for surgery. Patient is free from s/s of injury. Provide information to patient/family related to plan of care. Verify patient allergies. Confirm identity and verify consent before the operative or invasive procedure. Entry 1 Patient Arrival Time 09/17/21 08:05:00 Preop Departure 09/17/21 10:10:00 Last Modified By: Vianca Celaya RN 09/17/21 10:43:21 Post-Care Text: Patient is prepared mentally and physically and is ready for surgery. The patient remains free from s/s of injury. Patient/family express understanding of plan of care and participate in decisions affecting his or her perioperrative plan of care. Allergies documented appropriately. Patient identifiers and consent correct. General Comments: Pt arrives to W ambulatory. Pt denies CP, cold/flu/COVID like symptoms. Pt denies, DM, pacer/defib, POOL. Finalized By: Vianca Celaya RN Document Signatures Signed By: Vianca Celaya RN 09/17/21 10:43 [facility] Nutrition Noteon 09-17-2021 Nutrition Note Pt admitted for scheduled Rt knee surgery; had Lt knee replaced in Feb. Pt currently NPO. pre-op wt at 136.6kg, up slightly from Dec 134kg wt on file. Pre-op labs reviewed and wnl. No chewing/swallowing problems identified. Pt noted to have some c/o heartburn. Rec'd Regular diet advanced as tolerated along w/ usual post op vitamins/minerals and oral nutritional supplements. Pt at high nutrition risk r/t age greater than 65yr and surgery, however, no immediate nutrition concerns at this time. Diet order written 3000CD advance as tolerated w/ Boost Glucose Control BID. Pt does not have DM, Pre-op BS wnl. Diet adjusted to Advanced as tolerated to Regular with in house available Ensure Compact BID. [facility] Progress Note - Nurseon Progress Note - Nurse IV fluids stopped for good PO intake at this time [Electronically Signed on: 09/24/2021 15:45 EDT] Raquel Duvall RN [Verified on: 09/24/2021 15:45 EDT] Raquel Duvall RN [facility] XR Knee One or Two Views Rig hton 09-17-2021 XR Knee One or Two Views Right EXAM: XR Knee One or Two Views Right HISTORY: prosthesis placement. COMPARISON: Bone length study of the lower extremities dated 09/01/2021. TECHNIQUE: AP and lateral views of the right knee were obtained. FINDINGS: There are prosthetic devices about the distal femur and proximal tibia in satisfactory position and alignment. Postoperative change at the posterior patellar level appears unremarkable. Soft tissue swelling and air noted primarily anteriorly compatible with recent surgery. Postoperative torres are noted anteriorly. No definite acute fracture or dislocation. IMPRESSION: Right knee study demonstrates grossly unremarkable post arthroplasty changes as described. Follow up as needed. Final Dictated by: John Mckenna MD Dictated DT/TM: 09/17/21 2:50 Signed (Electronic Signature): John Mckenna MD 09/17/21 4:07 pm Technologist: Abilio AMIN [facility] Progress Note - Nurseon Progress Note - Nurse Pre-op phone call complete. Reviewed arrival time of 0830 on Monday09/17/2021 and pre-op instructions with pt. Pt voiced understanding and is without further questions or concerns at this time. [Electronically Signed on: 09/16/2021 09:25 EDT] Brayan Roach RN [Verified on: 09/16/2021 09:25 EDT] Brayan Roach RN [facility] 2018 Novel Coronavirus (CoVI D-19), JULISSA LCon 09-14-2021 SARS-CoV-2 (COVID-19) RNA JULISSA+probe Ql (Unsp spec) Not detected Invalid Interpretation Code Not Detected [facility] Comment on above: Order Comment: [id number] Result Comment: This nucleic acid amplification test was developed and its performance characteristics determined by [employer]. Nucleic acid amplification tests include RT- PCR and TMA. This test has not been FDA cleared or approved. This test has been authorized by FDA under an Emergency Use Authorization (EUA). This test is only authorized for the duration of time the declaration that circumstances exist justifying the authorization of the emergency use of in vitro diagnostic tests for detection of SARS-CoV-2 virus and/or diagnosis of COVID-19 infection under section 564(b)(1) of the Act, 21 U.S.C. 360bbb-3(b) (1), unless the authorization is terminated or revoked sooner. When diagnostic testing is negative, the possibility of a false negative result should be considered in the context of a patient's recent exposures and the presence of clinical signs and symptoms consistent with COVID-19. An individual without symptoms of COVID-19 and who is not shedding SARS-CoV-2 virus would expect to have a negative (not detected) result in this assay. Performed At: [address] [id number] Zay Lanad PhD Ph:[phone] Performed By: #### 6 [id number] #### [facility] [address] [place] [address] Coding Summaryon 09-14-2021 Coding Summary HTMLBase 64 YghfxbvgSDc1fBs+PGhl YWQ+PG8SWSQrY23ngBHq gX8KM9iPKX0NUQBFJLPI XE8DBM6rbEA7GCceT4Ad biAv KfwqbKPjPK97DDv8SKD4 cTbwCBwzlZ3wzUEsL6r7 IdSvQI45bM30SXegSIKx IxQ7EfUkvlkdvQEw V1kdIxCxsGOmVlz+PHRh YmxlIHdpZHRoPScxMDAl YaZksNjqOK2qUn3iXCLv LWNvbGxhcHNlOiBj z4cjLONvYIvrQF2qcJlt H5HhzYD8KEQtg9o4Iu82 dHI+AKZbIML3mDivODfo l676SeJpt8dsSIH8 gLGjCOloBIV5F26ej7T0 XWJrAWTaPUR3oII3bE8d sVofqczjS5DtcPZzTyJ0 SMI6fPEibE8etBif mvdslR2pIuc+A99GAG6Z ZTNECJ8RMqu6E1TrVsvf dHI+VX57YZLpTJ65qIFn cJWty2clqMp5QpLn MGTaXLC2lPmmIZbsk0Ol KZRdU23mdGObj0V0CIFv sFgkpQCvTvDbdLX0jH0t DXufyimhh4hsgwqo Xhxkc9sewl05aX89T08j RTxdBCGoZUS1JKIvNWJj cEtrij7lrK8sYf4+IDxj e1vgp2kshEt4HwHs QJLabqXewTkoPXJ5m8Mi Za05N9IlfWgrh4NiKrt8 lq15jTTme0I7wYB0OEfl NRRdoI6tFGmfJnU5 IESuChGrrU91lYMvKJtd Ql0hcKubpGpoDU4lJTQr rxwaCSJjtK6aMGSroOQm xKdsCN9qXJXalatv g700CaQoNUR4NFPriLLu C1QtpZ8xOaYxDVXgBVLc R3DtqLUfLSthL354YHpd KmO9MIAkpnZyT9Yz YPBmiTggEiZ9s7T3Gk1Q u1PhexnhETQ1MZytTNW2 DfXcDaXcPvQ4E5PxOee3 ETYfzHfmQK4kS0Pi DVGsizwhmfvueBU2ZUNn XDHdbJ20kKVuLEacIn1g u1L4m998QGSqVQCfkT94 Wu0foHkaPZVrmMFT eW6qfklsh0luzygyJqZw PWYbVTl2XEy6YJTqyFwi NeWhULL1ImI5TXH4jGKc yM7bbRcfqdwfyU4y Oyc+L79ciQ0cAGR5DNM5 ccnkZWAvurEnGC33DA31 E0KmBcrovCCszSW+PGRp zdRquCgwLA8zHoJj u5gqd8TmJQxiT4BrPGAw WYwbYln5EXPoVVO2zNL5 fY6bUVHyKXzft3Q6nFB4 I6WtvjVzom4cf3mn UEKhNFyfQ84yzBDiu7Q8 ZABrxSO9NEHzuMzeUbNr jR10Inm+BUGplSceb1Pj Uytdi5xjj5uaoFm5 IjMwJSIgdmFsaWduPSJ0 i0JiOu82G76vWErxPMKb TXWjRYVfLLEdmGldie4t cN1zMh1+PGNvbCB3 lMK8fU8rTEQlUtM2MFms D174BfEnpAKvMitbe7rr a6asySh3MbDgDRBdyxTq pEnaVMZ5m5KrSs62 W67oGEtbLLKtASPjBKZw DDQruGfcjp5tpQ2uLl2+ VQ7cj5zcyn17rC92jIO+ IYPwJMQ3mYrqJEfk UURugZ9pXGeuHvL8SJOt UeUntZ35nQJqEYffOc3p mPpxxAabYY5aJQQusyiw j293DzSpo5goRZXc jCZaGHfwNAB9V26xv1D3 VQLeEADwRSN6lKT4oP9p bGlnbjogbGVmdDsgdmVy vOsvDWoiTCwdG622 IHRvcDsnPlBhdGllbnQg QeOmGMf8S0ObKvw5SYVo jKvcNC7rfWCdRSikHa4s sXmyoLidRO5jDUIj wxecm920VrVru7giQFJj iOSuAOcrVDH6O05kc0V7 NVGsLXBzJBN7dLD0oC7o bGlnbjogbGVmdDsg xkVtqWwdZDueMAafQ775 IHRvcDsnPkJpcnRoIERh yFI0WG85LB60nYGwr6C9 aXE9N5LtPGRwhhde nuydgNG4PPHcEOZeuW23 Oi2xqUcrZv5cEXZfMTM9 LLSzaMVfY5PhoB1aRnTf REOsLJLeM5QfnPXr PQikJ117ZFhcHoL4EEUj mvCwO6GtSWAndDzoDrB2 n3Y7Mj3QT8K1JK06NI81 oBQyj0O8rMN4S9Yd AKJeljpqnepbxIV8MBVg IWRpjU47Nr7dbAstXd8w ISAxQCP0ICQhhDEhI4Kq kG8eNoBcHLYhAZZk X4FnwXLcTCniE799TWbw LiY3ZGNphhKqP8WeWEIt jNibIgT8n5S7Cy3AHCu2 DT61MZ94qDVxb3O9 bBQ7V3JmQGLbnpshrccm iCG2LWAhSOVmeD60Bh9o rZraAn6tICQuDYG2LMVo tBXpA0XaaP2cOiZo XOZySMMiX0RheITySBee B732ESpdQsE6DTNemjCm C8VkEOFhpHfwOtW9x2B9 Ym4JIHWtBJ10SUJ8 eFM9JW02YK04J8EjOapi dGFibGU+PHRhYmxlIHdp ZHRoPScxMDAlJyBzdHls TL9zNx6oYJWqCMXx uGihlIBzYeEdf5mhVXTj ZAgdSU2mfVfdO2IpcMW4 MUSyx1z6Di33B75vH1In dXA+FXHenKI6fWM1 aR7fLyRmKaQ2CAgiS419 UgOvuONcLoeab3huw0xk mJt7YkF8BAZtweSwtAnf WEF9j5OsGx40U42t IHdpZHRoPSIxNSUiIHZh jVelcl5kcS1gSe3+PGNv aOY5zEY1jT2tMhFuOxB9 KPewS436UsMoeSDs Zgfar5qgs1bbnTx3JxDw PTKvldOimBaaCSK5y9Yt Iu54F7IehFqir6JuBwb4 ra08zKTsz3P3xUV4 I7SpPEJvfmkweVYmwUjq AS3pFESzzpdyZELyeE9w MKVtS7v4LdHvBxR5JDnu Q0FugaN2COSmiLPt UHrkJFE2B75ec7X5HDMn LOFgWKS4sQK4qY1tnMfk bjogbGVmdDsgdmVydGlj TBxdEYxnI623PBOc yRrdPLAvzB5pQEZhgDYl iQzcSS4yWGEutyqmZvnB QkVSTElORywgTEFXUkVO S7PcKGudoAR+PHRk SPB4mIrwXCioCJUuyG7u WOQdO7w3NdBrUtU9QPed M0XmDBEpgjkbFi85wL8i HsEzHjM8JSqsY1Hi diW3TFDzvILxOKfiBLQ0 D65pb4F2UCNvBPMkDTY1 tOZ1dE5rjSwzrrpvyMEa dDsgdmVydGljYWwt RIyzG952HUWbsKbdAvC5 PeJoKgH5XGl6T3FyCag2 IWLtdAguXI8nzWIuAJgk Ui1blRmymNnqKS5j QTVsttncMEBfdG2eOHHi tJZksVsdOT8nPEWdyrvt f733VkOsCGQ5CMXpmXSn R4CrxC0zFkFwVJHd OIYuR6TfoROdXFhbM560 KWedXaA1OHWwkpUcI6Ba IUGbcWspNaQ1d2C1Bu37 MiBZZWFyczwvdGQ+ ZUJlRRJ8bYubWZyuUQDs pQ6yDKZuS9g6XsZpIyU2 EKxoP3ByMKNdymexFd18 kF0iVjIeDcD7CPvj P1DjauK8XTGnjLHxPXta DNH5Z07ak9Z5QAZmPFKz XGB7aJS7gV6diKexgees bGVmdDsgdmVydGlj IMlrRShjR320JHWjiBmh Ms9LRLO5Q5EwXvy8RQAm jVvmPI6aeQBoZDeyYj5u zSzgiRnbFZ1zLSCz jaerYSQjaO9aCTYpqOOw bLwxWE8aGFYnwqpbv003 IdTmJHK3AFGjuIUcP3Iw hO4qWzIdPNZcILJg H5OwqWDlYSirE597NFny MoB8ALJeepRlG2KjNWRa uBtmGdC9u4A0Hp7CACrn dGQ+QC47vd89K6Mk FajyTbd8OZHpYVD8qVY9 dN4oUQDgSJqht3R4zTG3 N4MhubHvpd7kk6jxBUDq WLnoY22yyMWci3B0 NOGlcIJ2LLFunTrjIiOy wD11Tcx+PRPizIfza5Fi Ywnwg0hwc7brcQr4CqJu JSIgdmFsaWduPSJ0 v8NdJu16W34jRDsmWZYq VLUiCQPfALQnzBkzvv2z yU1gBh6+ETZnyHL8qYH6 vR5wXzCpJhA8VScx R362PlUsnANrVtojb3yl c9wpuJm7TgKoFOYlgxCv yQdyQQK4n4BhEm23L8Uf gYoul0VqZux1la72 qMSgk7A6zYM8F1VhFWEg ksxvnFYspCyzLZ8wHRNp fzoxTUUyyV3jIOUiT3b2 YgGfNdJ8IQkgQ1Bl sjS1ODBdkXSpAXYhbTTY qT7eamfrw0yrzcnhRpRg EBZeONe7HVr5OAGvcIgc XxEjCDS4DeO8THN0 rGBopT7lvQmwuoumrF3e Oyc+UBs8m8vhyTNzUA9w sAT3EJ21JF64wHTbh0M4 cMN2T6CsMOEyegdj cnxliNC2UNLzJRPmhR87 Yu8huDzwNj4vHRSlGEV6 PYInqKYoU3LniK2wKjEd VIDbBEDuE0DjtAMt UPecN600DYtmPlV5IIIp opDwA2SeGPKxmVieShR3 p4O8Rb0DPS43TT33TF22 sMHvn2V3vHM8U7Fl DOArxlnzorkcoZY8YXVb OQObrE39Nu8haKgaXm8z VQRsOBF9OUNzrLPwZ1Lb sD4kQxDpKREpWKXg X2DukQQsLStjH155ZKeh FwI1EQJwdbGtN2NjQWNl lKgeFqL5i8S7Op5PKy95 SN10ZC31lLQly8P0 hCL8Q6FyKVQhvrayznpp wFW6SQZrBYJxcX21Lz5e hUbnMz4xCEByMMH1URAu sITkC8UucX6xLpFj QVWeSYYmP1WyoGIgLQrd V377OAxlBpF8CFWwdrRc E2MnZCYqqVcoYoP2l9Q6 Hw7TFWbplgs0C9Dq PjwvdHI+TB21QLOdDT15 sIOtuTBbq4saeKi9IzJj ZWPqHZN0zPkgRVhyj5Jh FRXnA60fuCAni4G9 IGN (more content not included)... [facility] C Urineon 09-03-2021 C Urine <10,000 cfu/ml [facility] Comment on above: Performed By: #### [id number] ####[facility] (DEFAULT)[address] [place] [address] Progress Note - Nurseon 08-14 Progress Note - Nurse PAT chart for 09-17-2021 surgery reviewed per anesthesiologistDr Mccauley- no additional orders received. [Electronically Signed on: 09/02/2021 13:45 EDT] Rita Molina RN [Verified on: 09/02/2021 13:45 EDT] Rita Molina RN [facility] Provider Orderson 09-02-2021 Provider Orders [id number] [facility] .Auto Diff 1on 07-20-2022 Auto Isabela % 9 % Normal 1-12 [facility] Comment on above: Performed By: #### 1 [id number], [id number], [id number] ####[facility] (DEFAULT)[address] [place] [address] 66901 Baso Abs# 0.0 x10 Normal 0.0-0.2 [facility] Comment on above: Performed By: #### 1 [id number], [id number], [id number] ####[facility] (DEFAULT)[address] [place] [address] 30756 Basophils/100 WBC (Bld) 0.6 % Normal 0.2-2.0 [facility] Comment on above: Performed By: #### 1 [id number], [id number], [id number] ####[facility] (DEFAULT)[address] [place] [address] 44339 Eos Abs# 0.0 x10 Normal 0.0-0.4 [facility] Comment on above: Performed By: #### 1 [id number], [id number], [id number] ####[facility] (DEFAULT)[address] [place] [address] 16607 Eosinophils/100 WBC (Bld) 0.7 % Low 0.9-4.0 [facility] Comment on above: Performed By: #### 1 [id number], [id number], [id number] ####[facility] (DEFAULT)[address] [place] [address] 35642 Lymph Abs# 2.2 x10 Normal 1.3-2.9 [facility] Comment on above: Performed By: #### 1 [id number], [id number], [id number] ####[facility] (DEFAULT)[address] [place] [address] 45903 Lymphocytes/100 WBC (Bld) 31 % Normal 14-48 [facility] Comment on above: Performed By: #### 1 [id number], [id number], [id number] ####[facility] (DEFAULT)[address] [place] [address] 28720 Isabela Abs# 0.7 x10 Normal 0.0-0.8 [facility] Comment on above: Performed By: #### 1 [id number], [id number], [id number] ####[facility] (DEFAULT)[address] [place] [address] Neut Abs# 4.1 x10 Normal 1.5-9.2 [facility] Comment on above: Performed By: #### 1 [id number], [id number], [id number] ####[facility] (DEFAULT)[address] [place] [address] Neutrophils/100 WBC (Bld) 58 % Normal 44-88 [facility] Comment on above: Performed By: #### 1 [id number], [id number], [id number] ####[facility] (DEFAULT)[address] [place] [address] Standardon 09-01-2021 eGFR Non AA >60 Invalid Interpretation Code [facility] Comment on above: Performed By: #### 1 [id number], [id number], [id number] ####[facility] (DEFAULT)[address] [place] [address] eGFR AA >60 Invalid Interpretation Code [facility] Comment on above: Result 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 Kidney Failure is indicated at less than 15 ml/min/1.73m2 Performed By: #### 1 [id number], [id number], [id number] ####[facility] (DEFAULT)[address] [place] [address] 69488 Anion gap [Moles/Vol] 12.0 mmol/L Normal 5.0-19.0 [facility] Comment on above: Performed By: #### 1 [id number], [id number], [id number] ####[facility] (DEFAULT)[address] [place] [address] 06903 Calcium [Mass/Vol] 9.7 mg/dL Normal 8.9-10.3 [facility] Comment on above: Performed By: #### 1 [id number], [id number], [id number] ####[facility] (DEFAULT)[address] [place] [address] 40209 Chloride [Moles/Vol] 102 mmol/L Normal 101-111 [facility] Comment on above: Performed By: #### 1 [id number], [id number], [id number] ####[facility] (DEFAULT)[address] [place] [address] 51798 CO2 [Moles/Vol] 29 mmol/L Normal 21-32 [facility] Comment on above: Performed By: #### 1 [id number], [id number], 5649456 ####[facility] (DEFAULT)[address] [place] [address] 42163 Creatinine [Mass/Vol] 0.94 mg/dL Normal 0.90-1.30 [facility] Comment on above: Performed By: #### 1 [id number], [id number], [id number] ####[facility] (DEFAULT)[address] [place] [address] 07032 Glucose [Mass/Vol] 109.0 mg/dL Normal 74.0-118.0 [facility] Comment on above: Performed By: #### 1 [id number], [id number], 0586090 ####[facility] (DEFAULT)[address] [place] [address] 73205 Osmolality 281 mOsm/L Invalid Interpretation Code [facility] Comment on above: Performed By: #### 1 [id number], [id number], 0107141 ####[facility] (DEFAULT)[address] [place] [address] 91536 Potassium [Moles/Vol] 4.1 mmol/L Normal 3.6-5.1 [facility] Comment on above: Performed By: #### 1 [id number], 90566061, 5745182 ####[facility] (DEFAULT)[address] [place] [address] 49718 Sodium [Moles/Vol] 139.0 mmol/L Normal 136.0-144.0 [facility] Comment on above: Performed By: #### 1 [id number], [id number], 6902025 ####[facility] (DEFAULT)[address] [place] [address] 78693 Urea nitrogen [Mass/Vol] 21 mg/dL Normal 8-26 [facility] Comment on above: Performed By: #### 1 [id number], [id number], [id number] ####[facility] (DEFAULT)[address] [place] [address] 41401 Urea nitrogen/Creatinine [Mass ratio] 22.0 mg/mg High 4.6-16.2 [facility] Comment on above: Performed By: #### 1 [id number], 19608453, 8511624 ####[facility] (DEFAULT)[address] [place] [address] CBC w/ Auto Diffon 2 Erythrocyte distribution width (RBC) [Ratio] 14.0 % Normal 11.5-15.0 [facility] Comment on above: Performed By: #### 1 [id number], 44100587, 5866089 #### [facility] (DEFAULT) [address] [place] [address] Hematocrit (Bld) [Volume fraction] 45.0 % Normal 34.8-51.9 [facility] Comment on above: Performed By: #### 1 [id number], [id number], 6297308 #### [facility] (DEFAULT) [address] [place] [address] 53837 Hemoglobin (Bld) [Mass/Vol] 14.5 g/dL Normal 11.8-17.7 [facility] Comment on above: Performed By: #### 1 [id number], [id number], 8647266 #### [facility] (DEFAULT) [address] [place] [address] 73368 Instr WBC 7.0 x10 Invalid Interpretation Code [facility] Comment on above: Performed By: #### 1 [id number], [id number], [id number] #### [facility] (DEFAULT) [address] [place] [address] 78974 Man Diff? Auto Normal [facility] Comment on above: Performed By: #### 1 [id number], [id number], 6507346 #### [facility] (DEFAULT) [address] [place] [address] 57009 MCH (RBC) [Entitic mass] 30 pg Normal 24-34 [facility] Comment on above: Performed By: #### 1 [id number], [id number], 3815970 #### [facility] (DEFAULT) [address] [place] [address] 78561 MCHC (RBC) [Mass/Vol] 32 g/dL Normal 26-37 [facility] Comment on above: Performed By: #### 1 [id number], 81622922, 7101134 #### [facility] (DEFAULT) [address] [place] [address] 76345 MCV (RBC) [Entitic vol] 93 fL Normal 81-100 [facility] Comment on above: Performed By: #### 1 [id number], 05739043, [id number] #### [facility] (DEFAULT) [address] [place] [address] 33810 Platelet 216 x10 Normal 138-427 [facility] Comment on above: Performed By: #### 1 [id number], [id number], [id number] #### [facility] (DEFAULT) [address] [place] [address] Platelet mean volume (Bld) [Entitic vol] 10.2 fL Normal 6.3-10.2 [facility] Comment on above: Performed By: #### 1 [id number], 37446254, 1432466 #### [facility] (DEFAULT) [address] [place] [address] RBC 4.86 x10 Normal 3.70-5.30 [facility] Comment on above: Performed By: #### 1 [id number], 39094953, 6958940 #### [facility] (DEFAULT) [address] [place] [address] WBC 7.0 x10 Normal 3.5-10.5 [facility] Comment on above: Performed By: #### 1 [id number], 72458635, 0745795 #### [facility] (DEFAULT) [address] [place] [address] XR Bone Length Studies [facility] 09-01-2021 XR Bone Length Studies Scanograms EXAM: XR Bone Length Studies Scanograms HISTORY: Pre-Op COMPARISON: Bone length study dated 02/04/2021. TECHNIQUE: Bone length study was performed in the upright position. FINDINGS: Right leg from the femoral head to the ankle mortise measures 92.2 cm. Right leg length is similar to the prior exam. Left leg from the femoral head to the ankle mortise measures 92.9 cm. Left leg length is slightly increased since prior exam likely related to the interval left knee arthroplasty. Moderate degenerative changes about the medial compartment of the right knee. Mild degenerative changes about the hip joints. No definite acute fracture or dislocation. Soft tissues are grossly within normal limits. IMPRESSION: Right leg length similar to the prior exam. Left leg length slightly increased since prior exam likely related to the interval left knee arthroplasty. Slight leg length discrepancy with left leg longer than the right as noted. Follow-up as needed. Final Dictated by: John Mckenna MD Dictated DT/TM: 09/04/21 3:29 Signed (Electronic Signature): John Mckenna MD 09/04/21 4:45 pm Technologist: Elysia SIMONS [facility] Complete Blood Count with Au to Diffon 06-09-2021 Basophils (Bld) [#/Vol] 0.04 10*3/uL Normal 0.00-0.20 [facility] Special[facility] Comment on above: Performed By: #### C FRANCISCA, CBCAD #### [facility] [address] [place], [place] [id number] Basophils/100 WBC (Bld) 0.6 % Normal [facility] Comment on above: Performed By: #### C FRANCISCA, CBCAD #### [facility] [address], [place] [id number] Eosinophils (Bld) [#/Vol] 0.11 10*3/uL Normal 0.02-0.50 [facility] Comment on above: Performed By: #### C FRANCISCA, CBCAD #### [facility] [address], [place] [id number] Eosinophils/100 WBC (Bld) 1.7 % Normal [facility] Comment on above: Performed By: #### C FRANCISCA, CBCAD #### [facility] [address], [place] [id number] Erythrocyte distribution width (RBC) [Ratio] 13.7 % Normal 11.0-15.0 [facility] Comment on above: Performed By: #### C MP, CBCAD #### [facility] [address], [place] [id number] Hematocrit (Bld) [Volume fraction] 43.3 % Normal 38.5-50.0 [facility] Computer Service Technician Comment on above: Performed By: #### C MP, CBCAD #### [facility] [address], [place] [id number] Hemoglobin (Bld) [Mass/Vol] 14.1 g/dL Normal 13.0-17.1 [facility] Comment on above: Performed By: #### C MP, CBCAD #### [facility] [address], [place] [id number] Lymphocytes (Bld) [#/Vol] 1.7 10*3/uL Normal 0.9-3.9 [facility] Comment on above: Performed By: #### C MP, CBCAD #### [facility] [address], [place] [id number] Lymphocytes/100 WBC (Bld) 26.3 % Normal [facility] Comment on above: Performed By: #### C MP, CBCAD #### [facility] [address], [place] [id number] MCH (RBC) [Entitic mass] 29.1 pg Normal 27.0-33.0 [facility] Comment on above: Performed By: #### C MP, CBCAD #### [facility] [address], [place] [id number] MCHC (RBC) [Mass/Vol] 32.6 g/dL Normal 32.0-36.0 [facility] Computer Service Technician Comment on above: Performed By: #### C MP, CBCAD #### [facility] [address], [place] [id number] MCV (RBC) [Entitic vol] 90 fL Normal 80-100 [facility] Special[facility] Comment on above: Performed By: #### C MP, CBCAD #### [facility] [address], [place] [id number] Monocytes (Bld) [#/Vol] 0.6 10*3/uL Normal 0.2-0.9 [facility] Comment on above: Performed By: #### C MP, CBCAD #### [facility] [address], [place] [id number] Monocytes/100 WBC (Bld) 9.6 % Normal [facility] Comment on above: Performed By: #### C MP, CBCAD #### [facility] [address], [place] [id number] Neutrophils (Bld) [#/Vol] 3.9 10*3/uL Normal 1.5-7.8 [facility] Comment on above: Performed By: #### C MP, CBCAD #### [facility] [address], [place] [id number] Neutrophils/100 WBC (Bld) 61.5 % Normal [facility] Comment on above: Performed By: #### C MP, CBCAD #### [facility] [address], [place] [id number] Platelet mean volume (Bld) [Entitic vol] 11.30 fL Normal 7.50-12.50 [facility] Comment on above: Performed By: #### C MP, CBCAD #### [facility] [address], [place] [id number] Platelets (Bld) [#/Vol] 222 10*3/uL Normal 140-400 [facility] Comment on above: Performed By: #### C MP, CBCAD #### [facility] [address], [place] [id number] RBC (Bld) [#/Vol] 4.84 10*6/uL Normal 4.20-5.80 [facility] Comment on above: Performed By: #### C MP, CBCAD #### [facility] [address], [place] [id number] RDW-SD 44.9 fL Normal 37.0-50.0 [facility] Comment on above: Performed By: #### C MP, CBCAD #### [facility] [address], [place] [id number] WBC (Bld) [#/Vol] 6.4 10*3/uL Normal 3.8-11.0 [facility] Comment on above: Performed By: #### C MP, CBCAD #### [facility] [address], [place] [id number] Comprehensive Metabolic Pane chikis 06-09-2021 Albumin [Mass/Vol] 4.6 g/dL Normal 3.6-5.1 [facility] Comment on above: Performed By: #### C MP, CBCAD #### [facility] [address], [place] [id number] Albumin/Globulin [Mass ratio] 2.2 {ratio} Normal 1.0-2.5 [facility] Comment on above: Performed By: #### C MP, CBCAD #### [facility] [address], [place] [id number] ALP [Catalytic activity/Vol] 80 U/L Normal 40-129 [facility] Comment on above: Performed By: #### C MP, CBCAD #### [facility] [address], [place] [id number] ALT [Catalytic activity/Vol] 16 U/L Normal 9-46 [facility] Comment on above: Result Comment: 01/13 Female reference range changed. Performed By: #### C MP, CBCAD #### [facility] [address], [place] [id number] Anion gap [Moles/Vol] 17 mmol/L Normal 12-20 [facility] Comment on above: Result Comment: Effe ctive 02/18/2019 reference range changed. Performed By: #### C MP, CBCAD #### [facility] [address], [place] [id number] AST [Catalytic activity/Vol] 22 U/L Normal 10-40 [facility] Comment on above: Performed By: #### C MP, CBCAD #### [facility] [address] [facility] [place] [place] [id number] Bilirubin [Mass/Vol] 0.40 mg/dL Normal 0.30-1.20 [facility] Comment on above: Performed By: #### C MP, CBCAD #### [facility] [address], [place] [id number] BUN/CREA 20 Ratio Normal 6-22 [facility] Comment on above: Performed By: #### C MP, CBCAD #### [facility] [address], [place] [id number] Calcium [Mass/Vol] 9.4 mg/dL Normal 8.6-10.2 [facility] Specialist Comment on above: Performed By: #### C MP, CBCAD #### [facility] [address], [place] [id number] Chloride [Moles/Vol] 101 mmol/L Normal 98-107 [facility] Comment on above: Performed By: #### C MP, CBCAD #### [facility] [address], [place] [id number] CO2 [Moles/Vol] 26 mmol/L Normal 20-31 [facility] Comment on above: Performed By: #### C MP, CBCAD #### [facility] [address], [place] [id number] Creatinine [Mass/Vol] 0.7 mg/dL Normal 0.7-1.4 [facility] Comment on above: Performed By: #### C MP, CBCAD #### [facility] [address], [place] [id number] eGFRAA 132 mL/min/1.73m2 Normal >60 [facility] Specialist Comment on above: Performed By: #### C MP, CBCAD #### [facility] [address], [place] [id number] eGFRNAA 109 mL/min/1.73m2 Normal >60 [facility] Comment on above: Performed By: #### C MP, CBCAD #### [facility] [address], [place] [id number] Globulin (S) [Mass/Vol] 2.1 g/dL Normal 1.9-3.7 [facility] Specialist Comment on above: Performed By: #### C MP, CBCAD #### [facility] [address], [place] [id number] Glucose [Mass/Vol] 98 mg/dL Normal 65-99 [facility] Computer Service Technician Comment on above: Result Comment: For FASTING Glucose --- ADA reference ranges: Normal 65-99 mg/dl Prediabetes 100-125 Diabetes >/= 126 Performed By: #### C MP, CBCAD #### [facility] [address], [place] [id number] Potassium [Moles/Vol] 3.9 mmol/L Normal 3.5-5.5 [facility] Computer Service Technician Comment on above: Performed By: #### C MP, CBCAD #### [facility] [address], [place] [id number] Protein [Mass/Vol] 6.7 g/dL Normal 6.1-8.1 [facility] Computer Service Technician Comment on above: Performed By: #### C MP, CBCAD #### [facility] [address], [place] [id number] Sodium [Moles/Vol] 139 mmol/L Normal 135-146 [facility] Computer Service Technician Comment on above: Performed By: #### C MP, CBCAD #### [facility] [address], [place] [id number] Urea nitrogen [Mass/Vol] 14 mg/dL Normal 7-25 [facility] Computer Service Technician Comment on above: Performed By: #### C MP, CBCAD #### [facility] [address], [place] [id number] Hemoglobin A1Con 06-09-2021 EAG 136.98 Normal [facility] Computer Service Technician Comment on above: Performed By: #### A 1C #### [facility] [address], [place] [id number] HbA1c (Bld) [Mass fraction] 6.4 % High 4.0-6.0 [facility] Computer Service Technician Comment on above: Performed By: #### A 1C #### [facility] [address], [place] [id number] Q - B-TYPE NATRIURETIC (BNP) on 06-09-2021 Natriuretic peptide B (Bld) [Mass/Vol] 33 pg/mL Normal <100 [facility] Computer Service Technician Comment on above: Order Comment: [facility] performed at: QPT, [facility], [address] [facility], [address] [place] [address], [place], [address], Placing Judge: Curtis Lyons MD [facility] Collection Date/Time: [id number] [facility] Results Received Date/Time: [id number] [facility] Reported Date/Time: FASTING: NO Result Comment: BNP levels increase with age in the general population with the highest values seen in individuals greater than 75 years of age. Reference: J. Am. Cheryl. Cardiol. 2002; 40:976-982. Performed By: #### 3 [id number] #### [facility] [address] [place] [address] Coding Summaryon 03-16-2021 Coding Summary HTMLBase 64 XrqpsrfhRAh0eDp+PGhl YWQ+RM7GSFGxY67ixADu qX6ZB5fEBZ1XDRHQNPCG LH8TRI8saTC9UYwgE7Qv biAv JzmryQXkBR12ZAr2TIX9 iJdlWNrwaD7anDMzX9m8 MrYcBC72nC24QZmwCHRj YdI2MbVhgjentBFc B6wrOrXxyLUbCpr+PHRh YmxlIHdpZHRoPScxMDAl WgQysSisHK4lNc4mZMKd LWNvbGxhcHNlOiBj b0uwVCQoACjqWF1vtXau F4YreOO4HVKxg5c5Mw19 dHI+YDOiZVH8fYxtBNgf q602UnNcs5ytQME3 tDEgEQycCHZ0I31wh4R4 JVIkEIKtBPK4lBW0dN0v bKltrsfvP8WssOMkArR8 HYW2vDWvnS6tqYor matrmG1aFtm+A39IHU4F NWRKDY3EHos9G4YoJkhp dHI+ST24FKRtZO74bJKc gYGrt5ccjRo1VxGn JMXtMKK8cYfpEJzus2Pp RIKaD62bjCHjn8S0LEFd iYdveZCyZeGnaYD7yK1o GMzktwqia8dnnskm Ouhtb9erul83pM44I11m SVldSRRqDLX4IMMdFQKx cYykzi3qrV1jOt0+IDxj h3cdv7mknKs0LaNn INEfvvPaxUorMGT4w9Tx Eb57I7LxoPtdm8ZuTvk7 sc37zSLqu7C8aBK1TMgy YYBrxE3oZWjlChJ1 XLSxJwRdgA27mAImEIth Nb7gaNgwkBsiLX2fVHSv zeexXAKlfK0aIGWvxABj eFbaAB6uSAVpwdue h592MwTyEND8VMHpzYBp K7HbiC8wCqJtAVImXYMa V2EgqNLxNLrjE942COkt CcP0PMBkodDkD8Lq VDTtiGewWdY8l0T5Xi9W x9VhaluqIIC6TSctYFPr XkOnOuNfThJ3W6CvCxd5 LIWfuRbjSG1fZ4Vk IMMxmbguubrimDO5VLPp LJBbeQ62hVIePJpfTi5w z2T3a028AXNrQZSopY83 Is7edFomWDXclXQT bD4crxvlf7bwtwrhGgCo XRNhAKr8FAl3FUTujGkb IqDmBDI7HsX3BEX8bYSz yC1ucGcukifaaQ0s Oyc+Y78pdL6tUEP5CNT9 khwhLTIxrjXxAL22NH82 S9GtEgeqxYYwiDU+PGRp gvVwuMiwSY7iPeKe a9eup2TfCNejA6CzVJFi IYieVsv9SMErWLM0uSE0 zV5uNCXkRPuts7O4oPG2 Z3VtxmYnyk5vt5ss MKKrMZyeD02qlFRhm4L8 MTLaxRR3JHTgoGquFvXz hW76Jgd+VOVwwDazx1Qw Xqzwk0jbd4hsaKh6 IjMwJSIgdmFsaWduPSJ0 y7GjCa97B20lFEvaMCQz UOPrQGCgMKEgzPhijn0w xI3fTo8+PGNvbCB3 oZZ4jM1zPSIvVmQ9VZzw X501JeYumVKeTsloq2rp o7vwdCr4MhAxIMZladAp nEgsUSZ7a4YcQb46 R31rYWjiAVKsIVRvKNJz XKUvoOpkow2nzD9iGv0+ QZ9ib3grwz07sQ64hNR+ VPVsIKZ8gTraOSlt IWSgaX7kQGztPpO4WSVp DaSbeU88zTGtGMmaFm2b pWgjzUgoDW1jQDLjoiln e916KgIst2jyGJOk sFSfQRqtVNM2N40zf6V0 CQZxSDDuEPT2bLD0fN2n bGlnbjogbGVmdDsgdmVy aKozDNxoVFgbN043 IHRvcDsnPlBhdGllbnQg JyMiGCa4J5MvHsh5IBJl kWrsYR6peIAoENtyTm9r nWlzzAkgWQ2zULHm pddem255LmFzg9idVBKy lPBtBVikTWN6M73ah6Y9 NGHyLEQjKYG7cEE8eX0l bGlnbjogbGVmdDsg dtGlbQgzMDmpRKfbJ420 IHRvcDsnPkJpcnRoIERh iPX7QC44JM26bRVtf5J1 mIO1T8OyVLYhytko kdkapDD6JAQvJCKzxY34 Ag1esGovQb2iSGAnTGI9 QBCnwVOdQ8IdcC9cSlCe JSDbRZFhO7IlxYFz YXzwN703ZOtzOrW7ELEz gfEmZ1VhOSWvjWtkQmO6 j9D7Ea2XL2L8SQ60JV69 gKGbr5I1cYV0N0Un YQWqqdhotfwwcGW1OGNg JEYlfB20Ad6pzArnPl1m XWRmJVU2OSWoqZOaJ9Fz pF2tYzReKTOxLGCe I6MngENcRAgrD710FVlb IrZ8CSAoauClZ9MaNFTi rAgbIiA7o8A0Al6LLGu4 HD98LS39aAMsd9P3 wSZ4N7QlLWTnwkboohow yXO2ULHrBDGxgJ83Ez5z jOrcYd6lOWQyAGD3LBQn eOLuH9DezI4hXeGn WYWmYVZvK7CkmZIdFCrk J859IJwsDgQ4AFEqehBv E6KsTUJcqShgNvG1a0M3 Ru0QXKPoPY99SLB2 gZX8PX73OC29Z6WcHsqo dGFibGU+PHRhYmxlIHdp ZHRoPScxMDAlJyBzdHls BK0oMp0aPBDzFUHn yWouoWBxMyVgz4fiFNHz HYudRQ1sgJqbE1OdsYP6 SPQkf9x4Vh78V90kI3Fj dXA+DKKbfXI1vWH4 bZ1dLeGcHkA4QKmyQ635 FxJidDYbDknfh0fdp2ga aRw4UfX1KHMwpmHogKoi DVZ9w2GcWd72F33a IHdpZHRoPSIxNSUiIHZh cDqhtx2daX2nBe6+PGNv nEO6kZG7nH3zRnHlOqI3 OWxaK573UzXdwRWx Jlnuh5qzh3nflUo2QmUh PWWzqyGxwVgiLYZ8w4Lw Ab16B7HqwXqwn4VgOqn8 gn22fVTlg2B7wZN1 Q8ZwHZUnigterPEbdLod ZG8iBYOlsldsJAXsnO8g AARlC0r3DlNfUeX4PHmo C5VszuY9WVVshQSj YZqkKWF4I27lf5A4OSZu WFVuEZO3cWR4gC2ggRle bjogbGVmdDsgdmVydGlj QEzwTMgrP637ZAMr eTusVUCtoP8oYTCvgQRa kCqeCG7uORRtwgwtVxvU QkVSTElORywgTEFXUkVO P7OsUIjslEB+PHRk WJQ3pCtjDKzeDSEwmR6d RXFbA4m0EjNaXlX7PBwp S6BiBGNltoilXq20eQ5y WyNmAoW3FZlhZ2Af wbN9SXNwcURoKIkcSMY4 Q40bn0F8DLZvKTXjBUT0 vYC8iL3uyDkncoesoRQd dDsgdmVydGljYWwt WEuzF945TQBdzEmwSjT1 IzOsGvT1ZEa2F4IhQhm6 QIVktQwrMJ7soWNpPEhv Bx3rlInwtJwjWA7n GMYxiocbOEStcP9fZBKf iECsdYktNW8mBHBepeld x140DwCdJEE2YXKcrAIh T3WsiM5iQePrITOd OAMeE8KjoBVkKAtiC578 CAckPyN2WFColrEfX9Lq YTZmyXjzVpT2m8W8Rb20 MiBZZWFyczwvdGQ+ UPFbHZA7pIbqMXtvXKVj pS8pZBWdB0e7FkRdMvT8 VSnvD5GrRQVdlrskXx07 bP0pKbRiAeZ1GOxs X8FeemW8BNFuaYTwCIiz YHQ1Q93oz8L5MJVxOLYk LCR9nKG8mM9zfLdqavdy bGVmdDsgdmVydGlj HTnkFMtqR952GWEpqApx Tw9VEJD9A6HpQpv1HCUk uWspIS4tdDNnOHlhMu3m iAjntGgnHQ0kVFEf vhpnIRZkgA3mRLLwtLTn fNtmHE7fVOTtatbdz008 QwOsSRI0BWGugTDjQ4Ji cH1jJxAqIHLwSSOg T2UmfRIkBQyuJ449KQad HrQ1WWNlacInW0DiOONi wAdsEnP7d4V9Yz8ZGNob dGQ+OS05of72B0Ny CwatVpx9IYPbGFX7kHX5 bE7wCJIrFWlkz2B4oPB8 E2QgofLbuk9rj6stNDBw DYeeK31hqNMne2W3 UAYctMX7NXTbgZixQuOh uF37Mhl+GXEooOaby0Fk Hdnwh9brz5rpzCg3ZhVi JSIgdmFsaWduPSJ0 h6VbQm41D72xGVtaLEFb KKUqDPKdPNBlpHlmys7l iB0hOl1+MSKrvBW8pVX2 bL4qWpFtYzN4MIqe O897ZkZffGQaZvaoa7yw o5zvoMx0CkClGBRqhsZr lVwiRQC3a4UtIb90Q7Px cJbbp7IuBfk4ad42 bHIgk4J2bSE4L4ErDDFu ucjrsHCdpAodJK6bEOCk cpnaQPRngG8zNMNaZ7j2 GrFpMeR0KRqoG3Om taH1NTGypSMfWIPtuFID gM5uifryo2aonbeaUvXv AUOfETg9ADu6OBTjtPcy KwQySHL8RjR8XBM3 vSVnlR5nmOawnvujxZ5i Oyc+OZq7o9nkqLDlKY1b hTP8OQ69LD67eRPzd2K9 mOE4S0EbFDKnirav wmtuhER0DCHnQMJtnH12 Pt7zfUiiYs0rIOAhMMO8 ADWqfYFgP1HrtB4xSuNk XUAlMCHbV5CybURj NGdvC653GHvaDpY5RUNj kmByV5BbCPLpeRolMpW1 z2X8Zc8RCO92SC65ZC92 dMGta1F5uDZ1W8Pu WXCnitviqsfjrZR8QKNf TWJgnH52Is3kyZnzHv1t BSBxJJV1VAAoqDRwN6Ao qN9mMwUyPUNoHJPp P9LvzNWrQZasV466THcy TgG8JGJdtaQwQ9XuOEUb jZrwTaK9f2E7Br6MNw29 OL82VH35kHBda8M8 mAI6Q4HiSZArapgpbtcs uYB4WDRwWDLotA20Rk4e wGvwLn7qQQDaQJE5CLWv dTQnN4XrqN1xDoOr IMNhEJLoO2YmcDPqNGzh B478JZguZuW0OCYsuiZq X8LmLPCnmOuoCjE6v0H7 Wf6ZCQcqvep5R4Tz PjwvdHI+NT77XUGwLP14 eCDaiCRtu3buwUc6HpEt EWHxPKC8yGnnZFuoq2Lr NGUdL36ffBTta4E4 IGN (more content not included)... [facility] Consent Formson 03-12-2021 Consent Forms [id number] [email or web address] [facility] Coding Summaryon 03-09-2021 Coding Summary HTMLBase 64 LlruoqhfHKf3tTy+PGhl YWQ+NL2KFLJiV05mdORm xI1YP0nVLF1YYEMTBCMO OU5XEK4srGX7ZPwhF0Ga biAv IthepUUnBL98NDj9DGH6 lOpmEOeqfV3azUXrP5l4 BxEgZO58qM23BYygMBBb BiG2UiHuvejldBYh J5otWuJwfUNiCwk+PHRh YmxlIHdpZHRoPScxMDAl InGbnNpbAN9hGf2fPFOf LWNvbGxhcHNlOiBj q0qwAOZtJTbaQY4ocOyy J7BvyTE6YFZsf7p5Ly75 dHI+WUDkKKH3fKayAOrq z152JwQxc5qaXBJ0 qMIpTGnjKRC3A07vv5N2 XNHcJAFyTFC4wRI3lB0o yWmvifvzV3GwhXDyZyF3 QKZ0oUIfzW7lxDkl fotndK5cXmi+R37FCA1P HVEBEF4LFvi3J9GwLren dHI+UC21BLOzWI35kNHa lOYqq7abePy5XwCs CNYrMJK6gIojHAtyc2Iv MENnO09keRBed3X5HODx uUqsrBFuOcOtvKL9sK3m UUkgujtls0wemkwh Lbhbd6icpo03tY50A99y KVnvNDBoLWT2TGAqXGSr vLrgsa0orL4dPk2+IDxj o1kjs8jnxIa5WvXa GGQynrLhfHnoVJQ6f6Ep Vg87B1EnuLmdo9MrRze3 lk92uUNjp7X9qEU3CUif FBQbzU0rJSqaBaJ1 FRXvBcUgoJ57sWYuXAzn Cb7cnNspgJymVW6xKKYp jttsTZCerC3yOSDtoEXx iFdzVW8nTNZxoacj f158PaUdXFS4DPGvdLLp H1VgeJ5vEpPvCMSiVQCf U8WlvNKoZRviZ876ITxv JvR2AQMzeeSvI6La NZKsyVmmOsB3q8E7Pg0M h3HblgqbTGQ8VBcsMTUu NdX3AqBgCaM8Y2AuDry8 MPJnkFowEJ2rE8Jt ECHakfhjasoasLE1SUNp HPWrcQ60lLEtCEquKj8n g5X4k583CRSwVFQkxX18 Vl3wrUwvUADfeJCP oS1lxjwjv7uwbnuvSnXq GFQlVTh9FVd1ZMVfqKnt SaSaSGO3GjY4XTI5tGWg cZ7dsEmbmgkteY9b Oyc+N82ueE1bAXG9KDX7 qappTPNbatAwQI91OW18 N1CfZqmuiIYvaKO+PGRp naRdwJweJV6nYiJk g6zyn9GpICzxX4RlUYEn TXjtSxr2DFAwGJS1yEQ8 pT2bOFYfZLfvi6T2gKY4 M8HtxnBtwa9ce2iw IFFdVAwoC53gxWEkq8K9 ARXegLO8AECseMqiHfWt zD38Mhf+GVSmcQflh7Fq Axhwq8ctc0quyHz8 IjMwJSIgdmFsaWduPSJ0 m7VxAa57E98iILliHHSc GQYcXYKiQSHtmUchdn3n dC8xZa9+PGNvbCB3 qIG6iC1bGSDtZrF2LVsv L369XvNszBOeBoqbb5jl n2qcsNv3KkHdXBJzjjTz vUanJAP1k3MeDh15 W04jAHkeSMIaGUBsHZEs ZCEisHbnqq7orE5lGh2+ IO3ap0lnua75dK51bBS+ OBMsYRK6hZqkBAkq KRNzyN8sLSbkCnP4QTLs WwYrhX67bYMdHTldCg0a hThhtOkrPI6tSXWfnofz e508GrGoi0idPPZu vNJsZRjyKTB6N90tw1P9 YEMjKXSkHDO5tZL6qL8y bGlnbjogbGVmdDsgdmVy hCgtOIpqNMhrS900 IHRvcDsnPlBhdGllbnQg IiKiQWg0H3AaXot1EWTv uQyoOT7liGIyPSnqOn0s dAzrkZsbKA1kKUTs fgjnz234PqAvo0xcXTDu wSQxEEdpZHM0W27qm6N1 RVEoFMBzHPJ6yYI6uB4y bGlnbjogbGVmdDsg izWprYbeNFwsUSzkM131 IHRvcDsnPkJpcnRoIERh pCQ4TL47ON57qFOac5S2 mBH2G1BwVEUnuajk bvgeqCE6BUNuJBIthP35 Al0vhVnhMj2dBVEjOEZ9 ZNIygHFdO9VpbZ3yTaZc TLIyMOQtQ0BtkOBm ILxrR218NBkcHuE9GIEn frScB7AlROUxcGggRzD9 a4O4Tx5CF2A2PO89RZ61 dWRac8C1gTY5I5Fu ZMUosejmybgibGC2PACz VFNnwD65Vc9pfFngZx6t NQHwNOO6OMGeoIXhE8Ch mG4eRfHsSWDqOWBg K4IyuJMhRZbhK638PJdu GjN8AZLlfsSuK7VeSTBh tKofLmS9n2Y1An9UUNp5 ZS20PF40dAFzn1H4 xJH4W8GtYQTretlypogn eME9BNEuOWXnhS14Gk2t eSxiSg1fDOAzZIC2KLJc mTVcK4DohZ4xWmYg FHQfEDFvU3PnvPWpGYau V760KKfaGsX0UEKnohKp F0UaVCLokFlxBbO1y1J5 Pp8DSHBsJE07XHV4 hGA6OX85SH03Z4VtVbkp dGFibGU+PHRhYmxlIHdp ZHRoPScxMDAlJyBzdHls LK0dTi5aBHSzYUTa vTnfcFMdGtIne5idJBKl LCblDN8haGtlF2LeoNA4 SCEwi3y3Ay15Z89rM8Jh dXA+OKRdvMP8oDT9 nF2yQhClJsE8KVryO891 UuEuaKJjWtvdz6lai0lj dXk6MnV7WPSkznJufLla UJL8g4MxIe10R90c IHdpZHRoPSIxNSUiIHZh lTsbyi6zoB1lUq9+PGNv dIW5vVG4uZ0gVdMrTcA2 OAlgM763UaSzdEGl Hsihf1uva0gybZb0SdRl JBPfwmJnhGvaEBL4x5Wg Dm70D5FheOohl6HhHhk4 fq63dMJfr7B3uFT4 Q0MqKKPmtpxoeMGbpBqp HF0sMCUivjslOFByfJ6i JOMsZ1n8DpYnAnR6ECvv G1QlbpT0HJVbbPGq FCjeEFF1I67uo9A4QQFw PGYxWTK5qJM3yP8btIac bjogbGVmdDsgdmVydGlj BRvvMXnlG290ZXUt sFboEHMmpG4lXKQfmXSn uEqfVO6yTSMbkpipBurJ QkVSTElORywgTEFXUkVO C2ZlOGoxgMG+PHRk ELQ3pPqhIKfjNTWhqB3g WWCzO2r4NeGkFvU5ZMhf Z0MvDIOmufcgZp33bD2f RpCiXgA3DEmgL6Kd ydV4OXJdlKOgKKhkEWC9 A42gj2J4SSYbUCKqNYX0 jTA6eY3nuXbftlbzaEMa dDsgdmVydGljYWwt YBbcW056HZUixOabLeO7 WdZvPpF1SQn1F2MzWue2 UBZhsJsxLS8qvRKgCEuk Hl6hzWxztJdlPM2a IIUrqzjbYAAnbJ5bDNMj jHBgkTopBQ4iOKAofdrj s249JhXyJGU4UZSmoZVe K4YubH1ePfFzYLIx FOMcN5BwuWBvMKymE757 TQphPrG4HIAfzlKvV6Pe GBOadYtfNnY6z5F0Hp72 MiBZZWFyczwvdGQ+ NPFzKIZ9oNilHCawEORs iH6tQPNeK2b4DgPtCcY1 ISfqV8UjLZRvjdsxFe18 uX3hIsBoDjB9VUoa J5PsrvL0FRCbtUBsJDgs ZUM8R72ua6I1KKYsPJDe KJM6rAE5nI2duIhitxaw bGVmdDsgdmVydGlj OSjsNNsbW838GHEfsWly Bz9CTRL0G2MbLlw3LXUa aSurWG1dzTMoJFktRm3e tEcvwWphLX7fNIYt stlnAFPmeV0nVUZhmUCr pRnzQY9jPSCkmfwin791 LfUaBOT9NRExsXPmN6Np sF3cZaVaNYUoQDYx G4YelLNhFNojY454CLcq VbA4LHSkecWkA9ZjPACo jLgmDsG1v4G7Oh5FGnNc cnZhdGlvbjwvdGQ+ RW19ak16O1WpBzhyJff1 ALExIMN5nEE5qV3mUAKp RRtad2B9jOP1V3ZixbBk nu1yj2mbAWHcTMom L03myCPea0L1PHIxaGM2 ANJxzEgwIiJmoB88Dds+ XLCrdPslv1GzRzmeu7ir j7lxgYr1SyDvLGFe rxYowGamYBZ3c0LfUk43 O70yOEtaPCLlZYJqAZGw DBMniUavtr8zbE6jRf5+ UFNecVM5sZN5bT0n SlIhZfA0FFtjV813IrAl jEGnIdyrb5jud2hujTn5 IjIwJSIgdmFsaWduPSJ0 p1WmEr30F3WsaDmd i4XaLfs2jd43ySMmb6U1 sWW1V6LoZAVwszmrvTXu wEiyMM2sIMYlogbfAQXw gY5dUREwH7w4GpWe MsU5DQylY6EhncL2HMUb qIXeXIEtaDJPxR6czqbg q7rmvxpdOiDgWCSeLAx1 FYo1VRNtwXbqTmEr ATT7AfA2CJX9iMOpoG5t gOhxoorzrP6hFiv+UGh5 w1dsnAGjWA8waBZ9UX73 YP70tSYtb9D3jPG7 H1OzQKMsnkphsbvoaYI8 BNBfKOPhqO23Yx3ygDok Nl9oTZHaQMG4BWFwlXRf K1KdeJ2iQrNlMOYk LYNxJ3YefBCgSKflJ284 GOgyBuF6TVXktyJbD8Nm ZXTxuWhsQkI7o5V7Qf3B KW60MQ76AD64qPHf i2J1cUU3X0KzAVBuqwkf eulksWB1OKLjBOWzwK17 Rk1fzBguDp4lJCKcTKV8 AIVzyNThW3XbkN7a JjHoFVKfDAAlV0AdrXPe OFpgM856XVwrAjW6XJMo taNuR6RoWHWwdMksTeN3 q5Z7Xs7SGb91YH65 BF33pTQwp9U9iIB7N4Ml CALunbtzllnikGL6NOIy GGRiiP22Dp0nbPfgYa7o NKJcAHN4MTGhaMSa N4UojM5dAlAgRVDyYAPb M3YbuQSwVKazS853HMuc WjS1ZQFnhkBjU1SqFTPb uUbbCjA6q1E6Ua3S ZIusqby3S3KxFrqpyXR+ LK78MZUjHB71qEWdvVQh i7nvjTh2EsTtYJBvILK0 iWwbCUfnm4SxYFGq Y29 (more content not included)... [facility] Coding Summaryon 03-08-2021 Coding Summary HTMLBase 64 MjobmzobDUr5fCx+PGhl YWQ+OG9CWZFyF89cgGIu tA6XP2aGWG7JEVPNRTEO HD8WQC5ksQN5DRvfU7Kp biAv VqyflTCtCQ88FLb0TLE4 sOhbHDaquA8kyXHxJ1b7 FjDsQD82vU72EMbiVZIq ZnX8HyKuaslwoORm A2xlYrLrqAEjQvs+PHRh YmxlIHdpZHRoPScxMDAl LbJesHnnCR2mVo1yKFQq LWNvbGxhcHNlOiBj r3tnDBSxNGbiBP5taTqi E5BpqGR4BOFqk0s0Uo44 dHI+ILZeCMQ5tVuhVBow e714TgJhi6gqEWU5 fUDlVFchKHW0Q40uf7B7 KOKrXXMuOPW3eHT9dD6o rEygvdsvT0VbcXQtJqM8 QEE0zECyoI6ecLcz zkqstE8oRsq+I94ERB7I AJBJNA4VWva7V0YvYaub dHI+RW99UUFrPA27sWSn iZMuo3wibOc9XjUv YVGwYUY9oNusEEgcw6Ik SHZgE80roZCdv6A4XDBi sUxobMVrVjFnqEN1mP7w WSlqjdzdd6ncbsen Pxgkb2avnv65vJ38O28v DObhRNVxBBE4FKVwOURm nQfqox9npG6oTx0+IDxj q3ouv1ctpEd8BaEw HPCbonEuqRduYDB9e2Qb Kx30A1IalEois5MuLda7 ft38rJUvs4I9mQS0EFkx MBUdhB0qZBxbPuP1 OZNpTaYyoF31jAKcVLuq Tz8zlDucgJzsZF4nIADq yeluNUVtjS8dYPYycASc pZslKC9cCSHbntbz a265ExEaZLI8BOFnzCHr W4WutJ6wYfZiSFGbHHHj V9NdyJDtZYsvO602MAmh ViT4XVGuoyVjZ3Fx FZVwsRluAvW2s2L0No7B n5UuaqpgTMZ2ZKoeKVOi MdZ5GvAmKiR6E3SiTht1 FVCdqSpsSG7jQ1Xk YPJkroxyrbjdnBA0RGTh VNIraY28xQSfOCoxQa3v o2I7i965EPGnARDqgM55 Qb1ghPplQKBssNPC yL8sytgrs7fqywahMeWn AQSgGLz1XPm1WKRntYji OnBdAXB7OyS1OYI9lMCq uZ0bhXhpvnmtwV7x Oyc+Q52wlP3wJVS4XUH7 nkdpZTNwpaByKY03VU66 I6HuXabyuINzlUW+PGRp hqTxbEkvJV4aBuQv u8lws1PhOKcsK0UoNELi YZhlKfc1HOZyQSM0aFI0 sX1dNHIqCUgax1V0cBH8 L0HymyKotr8xm2oo HFJgKAqhX45qvANqk2Z2 TBWbzEF1EPPsfZusWqQj rW40Bzs+FNCekTegx2Kr Zuckk5zoe8bktCf5 IjMwJSIgdmFsaWduPSJ0 p8WbEw01E95hFJgcFSEu CEUkPUEfPCMqcIdvaj6g dM6cId4+PGNvbCB3 oEI2vZ8eDVTpGuW0RQeg M060XrMfkIShDdtgw1sy h5mbaJg1IaHjONShbjWf wSaeLTW7m1RxRd80 C18qEZxeTZOwPMTrEXXk LYOtxQmobu7otV1fTj5+ CY1ca4djzf42iN31xTE+ GSFxWRG1tZxiLJla ORTxzO1mHExdMpU9OXVa QyCkvR16yKAjYQtjAm7x uBjgcMbnQL3iEHUczhll y996MmSjy7pjQLYh hTErJDunXOW6O85rh9A7 HNKnMMCsPCG0nYR3zP8f bGlnbjogbGVmdDsgdmVy uVueRAhkJAzhZ231 IHRvcDsnPlBhdGllbnQg VpSbJZp5C9BgZbe7OPHw aZcoDD9hiKOtPMlbCi4q sWbosDhmIR7nKMMv rfeea400BnHbv2bqSWKb dNZcJZykWXD6J34go6D8 OYOwPCSbTDZ4zBD9tD1p bGlnbjogbGVmdDsg ulGghJvuELaxQMynG065 IHRvcDsnPkJpcnRoIERh sBI5DR72TH29wAPwh3Y0 lHL7N3LmDNMdbgsc cudlnPI8MCSlGDKnfF94 Ma4viZiqFr9aOZCjODZ4 KAVamTIhM5TzsB9cSpOn TIQqALSdH7ZuiATh NBbvL401GZklHbJ4OTHq nySyO2IzLJElaDjlXgI3 m5D6Yo3BW4Q7HC85EB01 sSZxj6B0jCV5V4Qp VEYdmiricndxuBM1NZJk MQEkyS25Uy9sdRfgFr8o GOLpYLG8NSGhfMErN6Ss nV2yWdWoTDCxSMWc F3YjvUHdISpbV045SDrv JsC7WBPjkgZdX8DxPUAv wAsqLlB7m7Q5Lx9AYXg4 DM64GO56eRKck0V6 bTX2V1UxMSUwjfyiahle dRL4IBVqFACroS66Vj7q oDthEo3qSXYfABM6TOLn vHIgT8XqcM5sHfSb WIGgFKMdG9YamVOcIJnd I598CZauQxO2QEOfhgTa D9UkBYCmrPtaSgU2g2R4 Qi3OPFBpPJ64LMA0 oHM9BH30ZS61C9JkThdg dGFibGU+PHRhYmxlIHdp ZHRoPScxMDAlJyBzdHls XS2qCb1cWUWrXQNq xRqvtRDcXiTqv2kiJZYu CUeiZV8wrLplJ2QxySZ8 EQQdi9z6Yi77R92zH1Wv dXA+DYWgpIF1fXO1 tB8xXbXkNyJ3QXmbX186 PtTkwRLcTosbd8rvu2ak wUu2MqR6DRPbscCkmTte CBB7q4KiHq61E82u IHdpZHRoPSIxNSUiIHZh lMuyir3ftD5jBw1+PGNv bVH4cDQ7oE5fViDjDlJ8 FMjaA756PtHsbEAe Uxmzo2vay2aqhQy2TlBr VXTbhaEknEaiHGQ1j9Wh Lg74A9WyyEfwa3VgNac2 ro32yWTtl2J6hGN7 G3FkHLMixakwnQYzhLhb WN8cRQGuoaosTONatO7o GQLpR9u5FzBaEzQ7WSlh A8WeucX2PVCtuNQw ZDbaFUN8A80qy2G3QERt GXYfEMB6oHK0kZ0igHuc bjogbGVmdDsgdmVydGlj LQkcZOarW200ITLg yOkyWOXruL0sYUPnuNJj yFlwRZ8bCKFducmkFnoF QkVSTElORywgTEFXUkVO X5XsNItnmJC+PHRk YQC5iFaeDFkeNUOtrV0b HODzE4s3DtDsDpR0JHgm C7NhVSUntayeUj95gT4y OlXpGzX0QTeyM8Ve dtH9KPQayTYrIIybXQX0 T87ta6R0JUTcFEXeCXW5 dTG2vE2flErznelooVTb dDsgdmVydGljYWwt ZXwcH092CVOhxIbzHnH0 XtAkXfI8WYn2M4EwXww0 BCXbsEumHS0lsDAcOFkq Xr8xiBrxeXfmDQ0f QZZgucxvWIYwbC2aJIGr jTSldIonJT9xGOLeombv v260IyVnYLV9ZJRqsAOd T1PaiP4mSjVbJNBz BGGaM7GdkYEvEVbfP127 ZQaqGhF9TZDqnmYdV7Jn WHQdbCfcGzZ5f0T9Tf74 MiBZZWFyczwvdGQ+ QZZoATS9cYfkYKrpKFZy nG0mYOBqL7i0HtMiDzS7 VClpV6SxKMOuyhibNn36 mE4iFtWwNjT8VAkv I9CvrhB3ISBynMXtXAek RMV6S89mr2Y8IFAbIFPm AIS6yGT1wO4xhHbnhsbh bGVmdDsgdmVydGlj QAfqRMmoQ649BTCwoLbk Lq5HIIN8R2AgGsh9KVRn jNviZK0gsEIjISufGe2u iNchtDsmRL5hGOZp isoxEKUpnF3jJETvwWHz pTuqWJ9uILDmqvalv903 GtJbQDE2BKDkiSJgM7Ln qO9yCjFnUZTqCRIa C8DloHOiHMwcA912CLuo UrC7TJMmplEwE8WxGSVy nIzdYqS0m5Y2Nn3GZWtv dGQ+NN64yu44Y6Hg NqauQfx7VJDtYMK1iBE0 mQ9eHFZnDXpft0D4cNZ6 Y8GjyxWgcb8si9bcIAPy MIobD57ajRKsn4E7 QSMbvHT7AWPmvDxsNoGu lE09Uku+MEEfkAjmo3Mx Amtps3ixp2wfxPt4ThGh JSIgdmFsaWduPSJ0 e6YgFl53G85wVYtqBVRn KLHzMMYbOXLklGexjj0e sJ9tOf7+FZIgcSS7eCQ2 gN9eBqTbRgV2EAjo Y795UnTyiDLeOotlw6mb m0lowXh8KyQuVQTimeBb pMykDZJ5x3WjTp47N0Db aBrhn3WjPlx6pl62 pAGfj2P1nQL3X8AkDPWd eqawnLTazQzkFC1gIYUt elvgAXRurO7wOVGiW3g2 QvUpVgN3XVbrQ0Eh zjK0FPXiaNGgOAWzkBRA pH6cxtbsp3ffnirjLgAb CGNePDd4NKa4OMKuwRql BbCkTOB0JjO3CIB8 tFUueN4wzKgjktlysT6g Oyc+VFt7j7ofcTClOV1d oFX9IE23ZA92uPIrm3H8 pFY9S0XlPSOcvvdi bhvlgCT1EQLnPDVviZ27 Ds6nhXcsFh1yHDTmVUD0 UPVfyKNbX6InyW5fBySq GZKkFZZkQ8BcfLTo MKaoX210DMfeFaY6VFVb jiTeD3HiNFElxWiyAzM1 p9V6Nc1XQH28WD89DD03 uLYsu0G9wHE0J2Gt XRUkfodrlodhkEC1CPBk UPQshD71En0teYuxFq1u IUUyNEN6GWLwmCBvX5Hi mE7vYxFoKQQrUVRe D3QgbUFiUIdqU955ICcb HoL2HQDknuZbQ2BfGPNp iJkxAtX1f8C0Zc4SMa67 ZO90XU38yQJwc8T6 jPT3U8VrCYDfdxgyyrdy yTA5ELRlYROiaI47Gj3s jPmoLl7uGBOcZGZ6CFKs sXUiJ2FuyX9fQmRn KQFhEGDhW7YxnGPdNBxf U339HOmeEzB1UWVdxrOa U4GwYEWrfTpgQnR9c3N5 Ig2QPInvqut4H0Yk PjwvdHI+BL95KLRmPQ77 vQQymLMgv2hnaUb8UvTf VVMiDGK7tAxoSHjug5Qo QVTbX92ptBCch3D3 IGN (more content not included)... [facility] Consent Formson 03-04-2021 Consent Forms [email or web address] [id number] [email or web address] [facility] Electronic Messagingon 03-04 Electronic Messaging --- --- --- --- --- --- --- --- --- From: Direct[employer] ([email or web address]), Directtest To: ZAINA WINTERS Sent: 03/04/21 10:12:15 AM EST Subject: Discharge Summary Ready to View A summary regarding your recent visit is available in the Documents section of your Health Record. [facility] MAGR Intraoperative Recordon 03-04-2021 MAGR Intraoperative Record MAGR Intra-Op Record Summary Primary Physician: DAVID AWAD Finalized Date/Time: 03/04/21 08:14:12 Pt. Name: ZAINA WINTERS.O.B./Sex: 1950 MALE Med Rec #: [id number] Physician: DAVID AWAD Financial #: [id number] Pt. Type: O Room/Bed: [facility] Admit/Disch: 03/02/21 05:52:00 - 03/03/21 14:09:00 Institution: Case Times MAGR Entry 1 Patient In Room Time 03/02/21 08:00:00 Out Room Time 03/02/21 12:09:00 Anesthesia Start Time 03/02/21 08:00:00 Stop Time 03/02/21 12:10:00 Surgery Start Time 03/02/21 08:50:00 Stop Time 03/02/21 12:08:00 Last Modified By: Jo-Ann Schwab RN 03/02/21 12:19:48 Case Attendance MAGR Entry 1 Entry 2 Entry 3 Case Attendee DAVID AWAD Christopher J DO Long, Barbara RN Role Performed Surgeon - Primary Anesthesiologist of Supervisor [employer] Record Time In 03/02/21 08:00:00 03/02/21 08:00:00 03/02/21 08:00:00 Time Out 03/02/21 12:09:00 03/02/21 12:09:00 03/02/21 12:09:00 Procedure Arthroplasty Knee Arthroplasty Knee Arthroplasty Knee Total(Left) Total(Left) Total(Left) Last Modified By: Jo-Ann Schwab RN, Barbara RN Long, Barbara RN 03/02/21 12:19:51 03/02/21 12:19:51 03/02/21 12:19:51 Entry 4 Entry 5 Entry 6 Case Attendee Marjorie Esteves NAVIGATING OFFICER, Sue Horner NAVIGATING OFFICER Role Performed Scrub Personnel Sterile Proc Tech Sterile Proc Tech Time In 03/02/21 08:00:00 03/02/21 08:00:00 03/02/21 08:00:00 Time Out 03/02/21 12:09:00 03/02/21 12:09:00 03/02/21 12:09:00 Procedure Arthroplasty Knee Arthroplasty Knee Arthroplasty Knee Total(Left) Total(Left) Total(Left) Last Modified By: Jo-Ann Schwab RN, Barbara RN Long, Barbara RN 03/02/21 12:19:51 03/02/21 12:19:51 03/02/21 12:19:51 Surgical Procedures MAGR Pre-Care Text: A.20 Verifies operative procedure, surgical site, and laterality Im.150 Develops individualized plan of care Entry 1 Procedure Arthroplasty Knee Total Primary Procedure Yes Primary Surgeon DAVID AWAD Surgeon Comment LEFT TOTAL KNEE Start 03/02/21 08:50:00 POSSIBLE STEMS AND AUGS - NEX GEN TIBIA Stop 03/02/21 12:08:00 Anesthesia Type General Surgical Service Orthopedics Wound Class Clean Technique Details Closure Technique Primary Entire procedure No was performed via laparoscope or robotic assistance Last Modified By: Jo-Ann Schwab RN 03/02/21 12:19:53 Post-Care Text: O.730 The patient's care is consistent with the individualized perioperative plan of care General Case Data MAGR Pre-Care Text: A.350.1 Classifies surgical wound Entry 1 Case Information OR MAGR OR 05 Case Level Level 5 Wound Class Clean Specialty Orthopedics ASA Class 3 Diagnosis Preop Diagnosis DJD LEFT knee TOTAL Postop Same As Preop Yes Postop Diagnosis DJD LEFT knee TOTAL Blunt or No Is the procedure No penetrating injury considered occured prior to Emergent/Urgent? the start of the procedure: Last Modified By: Jo-Ann Schwab RN 03/02/21 10:38:47 Post-Care Text: O.760 Patient receives consistent and comparable care regardless of the setting Time Out MAGR Entry 1 Time out date/time 03/02/21 08:49:00 All team members Yes have introduced themselves by name and role Surgeon, Yes Surgeon reviews Yes anesthesia, nurse critical or confirm patient, unexpected steps, site, procedure operative duration, anticipated blood loss Anesthesia team Yes Nursing team Yes reviews any reviews sterility patient-specific (including concerns indicator results) and equipment issues/concerns Antibiotic Antibiotic Yes Administration Time 07:55 prophylaxis given within the last 60 minutes Last Modified By: Jo-Ann Schwab RN 03/02/21 08:56:55 Patient Positioning MAGR Pre-Care Text: A.280 Identifies baseline musculoskeletal status Im.40 Positions the patient Im.80 Applies safety devices Entry 1 Procedure Arthroplasty Knee Body Position Supine Total(Left) Left Arm Position Extended on padded arm Right Arm Position Extended on padded arm board board Left Leg Position Extended Right Leg Position Extended Feet Uncrossed? Yes Press Points Checked Yes Positioning Device Arm Boards, Arm Strap, Outcome Met (O.80) Yes Pillow, Safety Strap Last Modified By: Jo-Ann Schwab RN 03/02/21 08:57:02 Post-Care Text: E.290 Evaluates musculoskeletal status O.80 Patient is free from signs and symptoms of injury related to positioning Skin Prep MAGR Pre-Care Text: A.30 Verifies allergies Im.270 Performs skin preparation Im.270.1 Implements protective measures to prevent skin and tissue injury due to chemical sources Entry 1 Skin Prep Syntegrity Prep Agents (Im.270) Povidone-Iodine Prep By Jo-Ann Schwab RN Prep Area (Im.270) Knee, Leg, Foot Prep Area Details Left Skin Prep Agent Dry Yes Without Pooling Hair Removal Syntegrity Hair Removal Methods No hair removal performed Outcome Met (O.100) Yes Last Modified By: Zaheer (more content not included)... [facility] Outside Recordson 03-04-2021 Outside Records [id number] [facility] Provider Orders [id number] [facility] Stripson 2 Telemetry Strips [id number] #1.00[facility] .Auto Diff 1on 03-03-2021 Auto Isabela % 10 % Normal 02-24 [facility] Comment on above: Performed By: #### 1 [id number], 47235252, 6207733916, [id number], , ####[facility] (DEFAULT)[address] [place] [address] 98556 Baso Abs# 0.0 x10 Normal 0.0-0.2 [facility] Comment on above: Performed By: #### 1 [id number], 51348441, 1694998272, 6080901857, 4811160, ####[facility] (DEFAULT)[address] [place] [address] 75926 Basophils/100 WBC (Bld) 0.0 % Low 0.2-2.0 [facility] Comment on above: Performed By: #### 1 [id number], 52745175, 3321479085, 7541893362, , ####[facility] (DEFAULT)[address] [place] [address] 88241 Eos Abs# 0.0 x10 Normal 0.0-0.4 [facility] Comment on above: Performed By: #### 1 [id number], 53364295, 0651150795, 6843879951, , ####[facility] (DEFAULT)[address] [place] [address] 38155 Eosinophils/100 WBC (Bld) 0.0 % Low 0.9-4.0 [facility] Comment on above: Performed By: #### 1 [id number], 41662611, 0764013076, 3461085765, 0112953, ####[facility] (DEFAULT)[address] [place] [address] 08635 Lymph Abs# 1.9 x10 Normal 1.3-2.9 [facility] Comment on above: Performed By: #### 1 [id number], 69407472, 5140258619, 0804035727, 7217306, ####[facility] (DEFAULT)[address] [place] [address] 05064 Lymphocytes/100 WBC (Bld) 10 % Low 14-48 [facility] Comment on above: Performed By: #### 1 [id number], 20420070, 3337288916, 3137837617, 9437294, 6499313962 ####[facility] (DEFAULT)[address] [place] [address] 87022 Isabela Abs# 1.9 x10 High 0.0-0.8 [facility] Comment on above: Performed By: #### 1 407554751, 91159477, 3112211650, 1886618219, 8332071, 1287797901 ####[facility] (DEFAULT)[address] [place] [address] 40897 Neut Abs# 16.2 x10 High 1.5-9.2 [facility] Comment on above: Performed By: #### 1 522560057, 76607549, 3766049974, 0173222036, 9221718, 8021408011 ####[facility] (DEFAULT)[address] [place] [address] Neutrophils/100 WBC (Bld) 81 % Normal 44-88 [facility] Comment on above: Performed By: #### 1 322376671, 43509130, 6164880804, 0979285284, 1310448, 7851675696 ####[facility] (DEFAULT)[address] [place] [address] 00677 CBC w/ Auto Diffon 2 Erythrocyte distribution width (RBC) [Ratio] 13.5 % Normal 11.5-15.0 [facility] Comment on above: Performed By: #### 1 188534759, 88159701, 2073544795, 2801582883, 7609133, 9448860569 ####[facility] (DEFAULT)[address] [place] [address] 09839 Hematocrit (Bld) [Volume fraction] 40.5 % Normal 34.8-51.9 [facility] Comment on above: Performed By: #### 1 186390044, 01724652, 6280720038, 9278194418, 8474280, 8332409196 ####[facility] (DEFAULT)[address] [place] [address] 37344 Hemoglobin (Bld) [Mass/Vol] 12.8 g/dL Normal 11.8-17.7 [facility] Comment on above: Performed By: #### 1 682139935, 95759255, 9043644957, 8902000475, 9378132, 9831363054 ####[facility] (DEFAULT)[address] [place] [address] 77496 Instr WBC 20.1 x10 Invalid Interpretation Code [facility] Comment on above: Performed By: #### 1 [id number], 81948244, 8531839246, 4260908101, 3160628, 9494003684 ####[facility] (DEFAULT)[address] [place] [address] Man Diff? Auto Normal [facility] Comment on above: Performed By: #### 1 [id number], 66792398, 6899906370, 7766676727, 3823715, 6287158312 ####[facility] (DEFAULT)[address] [place] [address] 53724 MCH (RBC) [Entitic mass] 30 pg Normal 24-34 [facility] Comment on above: Performed By: #### 1 613436155, 72957213, 2195151664, 4612569945, 7198671, 5938605445 ####[facility] (DEFAULT)[address] [place] [address] 13592 MCHC (RBC) [Mass/Vol] 32 g/dL Normal 26-37 [facility] Comment on above: Performed By: #### 1 [id number], 13233107, 1965312021, 5124930739, 0838374, 7236328851 ####[facility] (DEFAULT)[address] [place] [address] 84447 MCV (RBC) [Entitic vol] 96 fL Normal 81-100 [facility] Comment on above: Performed By: #### 1 [id number], 73439681, 4436762842, 3093285239, 4533518, 1756316111 ####[facility] (DEFAULT)[address] [place] [address] 95577 Platelet 275 x10 Normal 138-427 [facility] Comment on above: Performed By: #### 1 105112351, 58947345, 6655700710, 2035086185, 0471332, 5841085513 ####[facility] (DEFAULT)[address] [place] [address] 30900 Platelet mean volume (Bld) [Entitic vol] 10.3 fL High 6.3-10.2 [facility] Comment on above: Performed By: #### 1 086058468, 92160129, 8795816246, 8341963035, 9238059, 0273116987 ####[facility] (DEFAULT)[address] [place] [address] 56369 RBC 4.24 x10 Normal 3.70-5.30 [facility] Comment on above: Performed By: #### 1 798859318, 82167081, 2024548130, 1154278292, 3693251, 5841325190 ####[facility] (DEFAULT)[address] [place] [address] 28445 WBC 20.1 x10 High 3.5-10.5 [facility] Comment on above: Result Comment: Slid e Reviewed Performed By: #### 1 [id number], 11658929, 4110261127, 1594200047, 1297098, 4697971649 ####[facility] (DEFAULT)[address] [place] [address] 25532 Electrolyte Panel Standardon 03-03-2021 Anion gap [Moles/Vol] 17.0 mmol/L Normal 5.0-19.0 [facility] Comment on above: Performed By: #### 1 [id number], 10798139, 8645428085, 5760284134, 8984761, 7458731572 ####[facility] (DEFAULT)[address] [place] [address] 00637 Chloride [Moles/Vol] 97 mmol/L Low 101-111 [facility] Comment on above: Performed By: #### 1 [id number], 69380114, 9699512520, 1802844706, 6659539, 3247709332 ####[facility] (DEFAULT)[address] [place] [address] 87845 CO2 [Moles/Vol] 26 mmol/L Normal 21-32 [facility] Comment on above: Performed By: #### 1 503921606, 41510263, 5214944950, 7795820062, 4509133, 4074687922 ####[facility] (DEFAULT)[address] [place] [address] 15664 Potassium [Moles/Vol] 3.9 mmol/L Normal 3.6-5.1 [facility] Comment on above: Performed By: #### 1 256291094, 24882071, 5601366580, 7952032101, 2657919, 2395777462 ####[facility] (DEFAULT)[address] [place] [address] 41763 Sodium [Moles/Vol] 136.0 mmol/L Normal 136.0-144.0 [facility] Comment on above: Performed By: #### 1 177231508, 91624564, 5675129375, 3210788032, 7082293, 8403910890 ####[facility] (DEFAULT)[address] [place] [address] 11247 Extra Greenon 03-03-2021 Tube Collected Yes Invalid Interpretation Code [facility] Comment on above: Performed By: #### 1 [id number], 94878392, 5614452612, 0380487746, 6182636, 2363647742 ####[facility] (DEFAULT)[address] [place] [address] 52227 Inpatient Patient Summaryon 03-03-2021 Inpatient Patient Summary [address] [address] Patient Discharge Instructions Name: ZAINA WINTERS Carmen : 1950 Patient Address: [address] [place] [address] Primary Care Provider: Name: Jeannine Hurley After you are discharged if you find you have any questions, please, call [phone] ext [phone] to speak to a nurse. Discharge Diagnosis: Aftercare following left knee joint replacement surgery; Presence of left artificial knee joint Prescription Information: If you have been given a prescription for narcotics, seek immediate medical attention if you have any difficulty breathing or any sudden status changes such as confusion and sleepiness. If you or anyone you know is experiencing suicidal thoughts, mental health, alcohol and/or drug addiction problems; contact the [facility] 05/09 Crisis Hotline -Text 4HXIB to [phone]. If you received any narcotics, sedation, or any other medication that causes drowsiness for the next 24 hours, unless otherwise directed: ? Do not drive a car. ? Do not operate machinery such as power tools, lawn mowers, drills, sewing machines, or stoves ? Avoid alcoholic beverages and drugs for allergies, nerves, or sleep ? Do not make important personal or business decisions or sign any legal documents [facility] would like to thank you for allowing us to assist you with your healthcare needs. The following includes patient education materials and information regarding your injury/illness. ZAINA WINTERS has been given the following list of follow-up instructions, prescriptions, and patient education materials: Follow-up Instructions With: Address: When: Marina Redd [address] [place] [address] [address] [address] Business (1) 03/15/2021 10:30 AM With: Address: When: Jeannine Evangelista [address] [place] [address] Business (1) Medications During the course of your visit, your medication list was updated with the most current information. The details of those changes are reflected below: New Medications Printed Prescriptions acetaminophen-oxycod one (Percocet 5 mg-325 mg oral tablet) 1 tab(s) Oral every 6 hours as needed as needed for pain. Refills: 0. Medications That Were Updated - Follow Below Instructions Printed Prescriptions Updated: apixaban (Eliquis 2.5 mg oral tablet) 1 tab(s) Oral 2 times a day. Refills: 0. Other Medications Updated: apixaban (Eliquis 5 mg oral tablet) 1 tab(s) Oral 2 times a day. Updated: metoprolol (Metoprolol Tartrate 25 mg oral tablet) 0.5 tab(s) Oral 2 times a day. Updated: multivitamin with minerals (Vitamin D with Minerals oral tablet) 1 tab(s) Oral every day. Updated: rOPINIRole (rOPINIRole 0.5 mg oral tablet) 1 tab(s) Oral every day. Medications to Continue That Have Not Changed Other Medications allopurinol (allopurinol 100 mg oral tablet) 1 tab(s) Oral every day. ascorbic acid (Vitamin C 1000 mg oral tablet) 1 tab(s) Oral every day. ferrous sulfate (ferrous sulfate 325 mg (65 mg elemental iron) oral delayed release tablet) 1 tab(s) Oral every day. hydrochlorothiazide- losartan (hydrochlorothiazide -losartan 12.5 mg-50 mg oral tablet) 1 tab(s) Oral every day. melatonin (melatonin 10 mg oral tablet) 1 tab(s) Oral once a day (at bedtime) as needed as needed for insomnia. omeprazole (omeprazole 20 mg oral delayed release capsule) 1 cap(s) Oral every day. It is important to always keep an active list of medications available so that you can share with other providers and manage your medications appropriately. As an additional courtesy, we are also providing you with your final active medications list that you can keep with you. acetaminophen-oxycod one (Percocet 5 mg-325 mg oral tablet) 1 tab(s) Oral every 6 hours as needed as needed for pain. Refills: 0. allopurinol (allopurinol 100 mg oral tablet) 1 tab(s) Oral every day. apixaban (Eliquis 2.5 mg oral tablet) 1 tab(s) Oral 2 times a day. Refills: 0. apixaban (Eliquis 5 mg oral tablet) 1 tab(s) Oral 2 times a day., Resume Eliquis 5mg twice daily when Eliquis 2.5mg twice daily is complete. ascorbic acid (Vitamin C 1000 mg oral tablet) 1 tab(s) Oral every day. ferrous sulfate (ferrous sulfate 325 mg (65 mg elemental iron) oral delayed release tablet) 1 tab(s) Oral every day. hydrochlorothiazide- losartan (hydrochlorothiazide -losartan 12.5 mg-50 mg oral tablet) 1 tab(s) Oral every day. melatonin (melatonin 10 mg oral tablet) 1 tab(s) Oral once a day (at bedtime) as needed as needed for insomnia. metoprolol (Metoprolol Tartrate 25 mg oral tablet) 0.5 tab(s) Oral 2 times a day. multivitamin with minerals (Vitamin D with Minerals oral tablet) 1 tab(s) Oral every day. omeprazole (omeprazole 20 mg oral delayed release capsule) 1 cap(s) Oral every day. rOPINIRole (rOPINIRole 0.5 mg oral (more content not included)... [facility] MAGR Postoperative Recordon 03-03-2021 MAGR Postoperative Record MAGR Phase II Record Summary Primary Physician: DAVID AWAD Finalized Date/Time: 03/03/21 08:37:51 Pt. Name: ZAINA WINTERS D.O.B./Sex: 1950 MALE Med Rec #: [id number] Physician: DAVID AWAD Financial #: [id number] Pt. Type: O Room/Bed: 231/ Admit/Disch: 03/02/21 05:52:00 - Institution: Phase II Case Times MAGR Pre-Care Text: Patient is free from s/s of injury. Patient remains free from compromised physical state related to surgery or anesthesia. Patient comfort maintained. Patient/family verbalize understanding of discharge instructions. Entry 1 In PACU II 03/02/21 12:59:00 Discharge from PACU 03/02/21 13:45:00 II Last Modified By: Vianca Celaya RN 03/03/21 08:37:47 Post-Care Text: The patient remains free from s/s of injury. Patient's vital signs stable, circulation maintained, return to preop mental and physical status, opsite/dressing intact, minimal or absent nausea and vomiting, tolerates po intake. Patient verbalizes adequate pain control. Patient/family express understanding of discharge instructions. General Comments: Phase II recovery done on 2 South, room 231 Finalized By: Vianca Celaya RN Document Signatures Signed By: Vianca Celaya RN 03/03/21 08:37 [facility] Nutrition Noteon 03-03-2021 Nutrition Note Pt admitted for scheduled Lt total knee surgery. Diet advanced to 3000kcal DM, along w/ usual post op vitamins/minerals and oral nutritional supplements; adjusted by sign writer hand to 2000kcal to better meet nutritional needs without overcompensating. Labs reviewed, BS 138-177mg/dl ideal post op. Pt at high nutrition risk r/t age greater than 65y, however, no immediate nutrition concerns at this time. Will monitor for changes. [facility] Anesthesia Noteon 03-02-2021 Anesthesia Note Patient: ZAINA WINTERS Age: 70 years Sex: MALE : 1950 Associated Diagnoses: None Author: Dre Santos DO Postoperative Information Post Operative Note: Post Anesthesia Care Unit. Anesthetic utilized: General. Regional: Adductor canal block. Physical Examination VS/Measurements VSS. See nursing flowsheet for vital sign measurements. General: No acute distress. Respiratory: Respirations are non-labored. Cardiovascular: Stable hemodynamics.. Neurologic: Alert, Oriented, Normal motor function. Review / Management Condition: Stable. Assessment Anesthetic outcome No anesthetic complications noted. Adequate pain relief. Patient either has a diagnosis of or is at risk of POOL. Potential risks and mitigating factors were discussed with the patient who expresses understanding.. No Complaint of nausea and vomiting. Plan Transfer/ Discharge: Patient can be discharged from PACU when criteria met. Condition stable. [Electronically Signed on: 03/02/2021 12:40 EST] Dre Santos DO [Verified on: 03/02/2021 12:40 EST] Dre Santos DO [facility] Anesthesia Note Patient: ZAINA WINTERS Age: 70 years Sex: MALE : 1950 Associated Diagnoses: None Author: Dre Santos DO Preoperative Information Anesthesiologist scheduled: Dre Santos DO > 8 hours Anesthesia history: Patient history: No prior anesthesia problems. Family history: No prior anesthesia problems. Re-evaluation prior to induction: Completed. Initial evaluation reviewed: No significant interval change. Review of Systems Constitutional: dizziness when lying flat, No fever, No chills. Respiratory: No shortness of breath. Cardiovascular: No chest pain. Gastrointestinal: No heartburn. Musculoskeletal: Joint pain. 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 ROS reviewed as documented in chart Health Status Allergies: Allergic Reactions (All) No Known Medication Allergies Current medications: (Selected) Inpatient Medications Ordered Dextrose 50% injection: 25 gm = 50 mL, IV Push, Once, PRN: Other (see comment) Insulin Regular Sliding Scale - Custom Scale: Insulin regular sliding scale, SubQ, Once LR 1,000 mL: 20 mL/hr, IV Lidocaine 1% injectable solution: 0.1 mL, ID, Once, PRN: Other (see comment) Sodium Chloride Flush: 10 mL, IV Push, As Directed ceFAZolin: 2 gm = 20 mL, 100 mL/hr, IV Piggyback, Radiographic Technologist tranexamic acid: 1,000 mg = 100 mL, 300 mL/hr, IV Piggyback, Radiographic Technologist tranexamic acid: 1,000 mg = 100 mL, 300 mL/hr, IV Piggyback, Radiographic Technologist Documented Medications Documented Eliquis 5 mg oral tablet: 5 mg = 1 tab(s), PO, BID, 60 tab(s), 0 Refill(s) Metoprolol Tartrate 25 mg oral tablet: 12.5 mg = 0.5 tab(s), PO, BID, 180 tab(s), 0 Refill(s) Vitamin C 1000 mg oral tablet: 1,000 mg = 1 tab(s), PO, Daily, 30 tab(s), 0 Refill(s) Vitamin D with Minerals oral tablet: 1 tab(s), PO, Daily, 30 tab(s), 0 Refill(s) allopurinol 100 mg oral tablet: 100 mg = 1 tab(s), PO, Daily, 30 tab(s), 0 Refill(s) ferrous sulfate 325 mg (65 mg elemental iron) oral delayed release tablet: 325 mg = 1 tab(s), PO, Daily, 30 tab(s), 0 Refill(s) hydrochlorothiazide- losartan 12.5 mg-50 mg oral tablet: 1 tab(s), PO, Daily, 30 tab(s), 0 Refill(s) melatonin 10 mg oral tablet: 10 mg = 1 tab(s), PO, Once a day (at bedtime), PRN: as needed for insomnia, 200 tab(s), 0 Refill(s) omeprazole 20 mg oral delayed release capsule: 20 mg = 1 cap(s), PO, Daily, 30 cap(s), 0 Refill(s) rOPINIRole 0.5 mg oral tablet: 0.5 mg = 1 tab(s), PO, Daily, 270 tab(s), 0 Refill(s) Problem list (past medical history): All Problems Atrial fibrillation / SNOMED CT 21363871 / Confirmed COVID-19 / SNOMED CT 7948416974 / Confirmed Diabetes / SNOMED CT 718432202 / Confirmed FH: hypertension / SNOMED CT 262829871 / Confirmed 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 Comments: 02/04/2021 10:08 Oliva Van RN surgery Social History Electronic Cigarette/Vaping Assessment Electronic Cigarette Use: Never. Alcohol Assessment Use: Current. Beer, 1-2 times per week Tobacco Assessment Never (less than 100 in lifetime) Tobacco Use:. Substance Abuse Assessment Substance use: Never. . Social & Psychosocial Habits Alcohol 02/04/2021 Alcohol Use: Current Type: Beer Frequency: 1-2 times per week Substance Abuse 02/04/2021 Substance use: Never Tobacco 02/04/2021 Smoking tobacco use: Never (less than 100 in l Electronic Cigarette/Vaping 02/04/2021 Electronic Cigarette Use: Never . Physical Examination Airway: Mallampati classification: I (soft palate, fauces, uvula, pillars visible). Distance: Thyromental, Adequate. Mouth: Adequate opening, Dentures ( Upper dentures, removed ). Neck: Full range of motion. Respiratory: Lungs are clear to auscultation. Cardiovascular: Normal rate, Regular rhythm. Neurologic: Alert, Oriented, No focal deficits. Review / Management Results review ECG interpretation: Normal sinus rhythm. Plan [employer] [employer]#(A SA) physical status classification: Class III. Anesthetic Preoperative Plan Anesthesia: General. , Regional Adductor canal/iPACK blocks. Anesthetic plan, risks, benefits, and alternatives discussed with the patient and/or family. Risks discussed: including block. Patient verbalized understanding. Informed consent was given. Consent was signed by the patient. Discussed SAB vs. GETA, however the patient took Eliquis < 72 hours ago and therefore SAB is contraindicated.. Anesthetic technique: General anesthesia, Regional anesthesia. [Electronically Signed on: 03/02/2021 09:12 EST] Aiden Santos (more content not included)... [facility] MAGR Intraoperative Recordon 03-02-2021 MAGR Intraoperative Record MAGR Intra-Op Record Summary Primary Physician: Finalized Date/Time: 03/02/21 08:23:07 Pt. Name: SINGHZAINA /Sex: 1950 MALE Med Rec #: [id number] Physician: DAVID AWAD Financial #: [id number] Pt. Type: D Room/Bed: / Admit/Disch: 03/02/21 05:52:00 - Institution: Case Times MAGR Entry 1 Patient In Room Time 03/02/21 07:33:00 Out Room Time 03/02/21 07:57:00 Anesthesia Start Time 03/02/21 07:36:00 Stop Time 03/02/21 07:57:00 Surgery Start Time 03/02/21 07:45:00 Stop Time 03/02/21 07:48:00 Last Modified By: Rita Molina RN 03/02/21 08:16:53 Case Attendance MAGR Entry 1 Entry 2 Entry 3 Case Attendee Dre Santos Laura RN Draper, Lora RN Role Performed Anesthesiologist of Supervisor Microfilm Duplicating Unit Supervisor Microfilm Duplicating Unit Record Time In 03/02/21 07:33:00 03/02/21 07:33:00 03/02/21 07:33:00 Time Out 03/02/21 07:57:00 03/02/21 07:57:00 03/02/21 07:57:00 Procedure Adductor Canal Adductor Canal Adductor Canal Block(Left) Block(Left) Block(Left) Last Modified By: Rita Molina RN, Lora RN Draper, Lora RN 03/02/21 08:16:59 03/02/21 08:16:59 03/02/21 08:16:59 Surgical Procedures MAGR Pre-Care Text: A.20 Verifies operative procedure, surgical site, and laterality Im.150 Develops individualized plan of care Entry 1 Procedure Adductor Canal Block Primary Procedure Yes Primary Surgeon Der Santos DO Modifiers Left Surgeon Comment ADDUCTOR CANAL BLOCK Start 03/02/21 07:45:00 PRIOR TO LEFT TOTAL KNEE Stop 03/02/21 07:48:00 Anesthesia Type Regional Block Surgical Service Anesthesia Wound Class Clean Technique Details Closure Technique N/A Entire procedure No was performed via laparoscope or robotic assistance Last Modified By: Rita Molina RN 03/02/21 08:19:30 Post-Care Text: O.730 The patient's care is consistent with the individualized perioperative plan of care General Comments: iPack block considered- patient assessed with ultrasound per Dr. Santos but ipack block not attempted General Case Data MAGR Pre-Care Text: A.350.1 Classifies surgical wound Entry 1 Case Information OR MAGR Proc Room Case Level None Wound Class Clean Specialty Anesthesia ASA Class 3 Diagnosis Preop Diagnosis ADDUCTOR CANAL BLOCK TO Postop Same As Preop Yes LEFT TOTAL KNEE Postop Diagnosis ADDUCTOR CANAL BLOCK TO LEFT TOTAL KNEE Blunt or No Is the procedure No penetrating injury considered occured prior to Emergent/Urgent? the start of the procedure: Last Modified By: Rita Molina RN 03/02/21 08:22:09 Post-Care Text: O.760 Patient receives consistent and comparable care regardless of the setting Time Out MAGR Entry 1 Time out date/time 03/02/21 07:35:00 All team members Yes have introduced themselves by name and role Surgeon, Yes Surgeon reviews Yes anesthesia, nurse critical or confirm patient, unexpected steps, site, procedure operative duration, anticipated blood loss Anesthesia team Yes Nursing team Yes reviews any reviews sterility patient-specific (including concerns indicator results) and equipment issues/concerns Antibiotic Antibiotic N/A prophylaxis given within the last 60 minutes Is essential Yes imaging displayed? Last Modified By: Rita Molina RN 03/02/21 07:43:01 Patient Positioning MAGR Pre-Care Text: A.280 Identifies baseline musculoskeletal status Im.40 Positions the patient Im.80 Applies safety devices Entry 1 Procedure Adductor Canal Body Position Semi-Fowlers Block(Left) Left Arm Position Resting at Side Right Arm Position Resting at Side Left Leg Position Extended Right Leg Position Extended Feet Uncrossed? Yes Press Points Checked Yes Outcome Met (O.80) Yes Last Modified By: Rita Molina RN 03/02/21 07:43:20 Post-Care Text: E.290 Evaluates musculoskeletal status O.80 Patient is free from signs and symptoms of injury related to positioning Skin Prep MAGR Pre-Care Text: A.30 Verifies allergies Im.270 Performs skin preparation Im.270.1 Implements protective measures to prevent skin and tissue injury due to chemical sources Entry 1 Skin Prep Syntegrity Prep Agents (Im.270) Chlorhexidine Gluconate Prep By Dre Santos DO and Alcohol Prep Area (Im.270) Thigh Prep Area Details Left Skin Prep Agent Dry Yes Without Pooling Hair Removal Syntegrity Hair Removal Methods No hair removal performed Outcome Met (O.100) Yes Last Modified By: Rita Molina RN 03/02/21 07:44:37 Post-Care Text: E.10 Evaluates for signs and symptoms of physical injury to skin and tissue O.100 Patient is free from signs and symptoms of chemical injury Departure from OR MAGR Entry 1 Present on Depart N/A Via Stretcher Post-op Destination Workman Skin DFO Condition Warm Description Condition Dry Description Report Given To Jo-Ann Schwab RN Airway Maintenance Patient Status Stable Oxygen in Use? Yes Airway Device Na (more content not included)... [facility] PACU Record [facility] PACU Record Summary Primary Physician: DAVID AWAD Finalized Date/Time: 03/02/21 13:11:26 Pt. Name: ZAINA WINTERS D.O.B./Sex: 1950 MALE Med Rec #: [id number] Physician: DAVID AWAD Financial #: [id number] Pt. Type: D Room/Bed: 231/1 Admit/Disch: 03/02/21 05:52:00 - Institution: PACU Case Times MAGR Entry 1 In PACU I 03/02/21 12:07:00 Discharge from PACU 03/02/21 12:58:00 I Last Modified By: Rosy Gaxiola RN 03/02/21 12:58:08 General Comments: Pt stable. VS stable. Pain level 8/10. Report given to LESLEY Velásquez at bedside. Finalized By: Rosy Gaxiola RN Document Signatures Signed By: Rosy Gaxiola RN 03/02/21 [facility] Preoperative Record MAGR Pre-Op Record Summary Primary Physician: DAVID AWAD Finalized Date/Time: 03/02/21 08:24:03 Pt. Name: ZAINA WINTERS /Sex: 1950 MALE Med Rec #: [id number] Physician: DAVID AWAD Financial #: [id number] Pt. Type: D Room/Bed: / Admit/Disch: 03/02/21 05:52:00 - Institution: Pre-Op Case Times MAGR Pre-Care Text: Patient will be optimally prepared for surgery. Patient is free from s/s of injury. Provide information to patient/family related to plan of care. Verify patient allergies. Confirm identity and verify consent before the operative or invasive procedure. Entry 1 Patient Arrival Time 03/02/21 06:00:00 Preop Departure 03/02/21 07:57:00 Last Modified By: Rita Molina RN 03/02/21 08:24:01 Post-Care Text: Patient is prepared mentally and physically and is ready for surgery. The patient remains free from s/s of injury. Patient/family express understanding of plan of care and participate in decisions affecting his or her perioperrative plan of care. Allergies documented appropriately. Patient identifiers and consent correct. General Comments: Pt arrives to psw ambulatory. Pt has #7 pain in left knee, Pt denies cp, cough or flu like symptoms. Pt is sob with ambulation which is normal. Pt denies pacemaker/defibillat or or sleep apnea. Finalized By: Rita Molina RN Document Signatures Signed By: Rita Molina RN 03/02/21 08:24 Normal [facility] POCT Glucose Levelon 022 Glucose [Mass/Vol] 177 mg/dL High 74-118 [facility] Comment on above: Performed By: #### [id number] #### [facility] (DEFAULT) [address] [place] [id number] Glucose [Mass/Vol] 138 mg/dL High 74-118 [facility] Comment on above: Performed By: #### [id number] ####[facility] (DEFAULT)[address] [place] [id number] Patient Handouton 03-02-2021 Patient Handout POST OPERATIVE TOTAL KNEE/HIP DISCHARGE INTRUCTIONS SURGEONS WRITTEN INSTRUCTIONS: Walk with walker; bear weight to tolerance on operative extremity Elevate extremity 1 hour 3 times/day to control pain and swelling and apply cyrocuff Range of motion to ankle 10 times/hour Range of motion to knee hourly Change dressing daily. Reapply silver dressing for next four days then discontinue Sole hose (compression stockings) for 6 weeks Physical therapy as prescribed May shower, no tub bath. Do not rub/scrub incision. Wash gently Take Eliquis 2.5 mg twice daily For 14 days after surgery and then on the 15th day switch back to your presurgical dosage of Eliquis WHAT YOU SHOULD KNOW AFTER YOUR OPERATION: If you need pain pills, start before the pain becomes intense. Pain pills are frequently less upsetting to your stomach if you take them with food such as crackers or bread. If you have excessive or persistent pain, swelling, bleeding, nausea, vomiting or any other problems, you should first call your surgeon for advice. If you are unable to contact your surgeon, seek help from the emergency room. FOR THE PREVENTION OF DVT AFTER LOWER EXTREMITY SURGERY What is a DVT? There is always the risk of DVT after lower extremity surgery. DVT, or deep vein thrombosis, is a blood blot in a major vein that may partially or completely block the flow of blood. The clot occurs in the legs or pelvis, in areas where blood flow is slow, or in an injured blood vessel. DVT can be life-threatening should pieces of the clot break away and travel to the lungs. This is called pulmonary embolism What are the symptoms of DVT? The area affected by the blood clot may become swollen and painful, and possibly turn red as the normal flow of blood is blocked. You may also develop edema, which is the build up of fluid in the skin tissues surrounding the clot. If the clot is somewhere other than your leg, there may be no physical signs of DVT. If the clot breaks away and travels to your lungs, you may experience shortness of breath and chest pain. If this occurs you should call your doctor immediately or go to the emergency room. How can I prevent DVT? You should keep active. Moving the ankle and foot and bending the knee as tolerated when you are in bed and walking as tolerated. Take medication, especially the Aspirin, as prescribed by your doctor. What should I do if I think I have a DVT? You should call your doctor or go to the emergency room any time you have a sudden and unusual shortness of breath that is not related to exercise, exertion or anxiety. If you have swelling with redness and pain in your leg, you should call your doctor immediately. If there is concern then a test called ?Venous Doppler? can be done to rule of a DVT. #1 change dressing daily. You may shower starting 3 days after surgery. No scrubbing or rubbing incision during shower just let the water run over the incision #2 stop smoking and drinking alcohol #3 ice to operative knee 20 minutes every hour while awake until pain and swelling control. Keep head flat with knee straight and elevated above heart with a ramp of pillows until pain and swelling controlled #4 flex and extend both feet/ankles 10 times per hour while awake #5 push both knees backwards into the bed 10 times every hour while awake, clench buttock muscles together 10 times every hour while awake #6 use walker weight-bear as tolerated to operative knee. Get up every 2 hours while awake and walk around with walker for 1 to 2 minutes. #7 Flex and extend knee over the side of the bed 10?4 times a day #8 follow up in office with physician assistant Justo Redd as scheduled #9 [facility] will be contacting you within the next 24 hours to set up home therapy visits #11 You have been given a prescription for Percocet, Percocet is narcotic, narcotics are addictive. If you feel you have problems with addiction please feel free to contact Dr. Awad, your family physician, or proceed to the nearest hospital's emergency services department. Normal [facility] XR Knee One or Two Views Lef ton 03-02-2021 XR Knee One or Two Views Left EXAM: XR Knee One or Two Views Left HISTORY: Post Op COMPARISON: None. TECHNIQUE: AP and lateral views of the knee were obtained utilizing the portable unit FINDINGS: Immediate post surgical changes are present. A total knee prosthesis is in place. A row of skin torres is noted anteriorly. No calculi osseous abnormality is identified. An effusion is seen in the suprapatellar region, and air is seen in the soft tissues anteriorly. IMPRESSION: Immediate post surgical changes are present without apparent complication. A total knee prosthesis is in place, with skin torres. Some fluid and air is seen in the soft tissues anteriorly. Final Dictated by: Anderson Kaiser MD Dictated DT/TM: 03/02/21 1:54 Signed (Electronic Signature): Anderson Kaiser MD 03/02/21 1:56 pm Technologist: Evelia ESCOBAR Normal [facility] 2019 Novel Coronavirus (CoVI D-19), JULISSA LCon 03-01-2021 SARS-CoV-2 (COVID-19) RNA JULISSA+probe Ql (Unsp spec) Not detected Invalid Interpretation Code Not Detected [facility] Comment on above: Order Comment: [id number] Result Comment: This nucleic acid amplification test was developed and its performance characteristics determined by [employer]. Nucleic acid amplification tests include RT- PCR and TMA. This test has not been FDA cleared or approved. This test has been authorized by FDA under an Emergency Use Authorization (EUA). This test is only authorized for the duration of time the declaration that circumstances exist justifying the authorization of the emergency use of in vitro diagnostic tests for detection of SARS-CoV-2 virus and/or diagnosis of COVID-19 infection under section 564(b)(1) of the Act, 21 U.S.C. 360bbb-3(b) (1), unless the authorization is terminated or revoked sooner. When diagnostic testing is negative, the possibility of a false negative result should be considered in the context of a patient's recent exposures and the presence of clinical signs and symptoms consistent with COVID-19. An individual without symptoms of COVID-19 and who is not shedding SARS-CoV-2 virus would expect to have a negative (not detected) result in this assay. Performed At: [address] [id number] Zay Landa PhD Ph:[phone] Performed By: #### 1 [id number] #### [facility] (DEFAULT) [address] [place] [address] [id number] Progress Note - Nurseon 02-13 Progress Note - Nurse Pre-op call for 03-02-2021 surgery made- patient informed of arrival time of 0600 tomorrow ,NPO after midnight except for any medication that he was instructed to take in morning, hibiclens shower x2-patient with understanding. [Electronically Signed on: 03/01/2021 09:42 EST] Rita Molina RN [Verified on: 03/01/2021 09:42 EST] Rita Molina RN [facility] Progress Note - Nurseon 01-14 Progress Note - Nurse PAT review done per Dr. Mccauley, no orders received. [Electronically Signed on: 02/08/2021 10:37 EST] Oliva Rabago RN [Verified on: 02/08/2021 10:37 EST] Oliva Rabago RN [facility] .Auto Diff 02-04-2021 Auto Isabela % 10 % Normal 02-24 [facility] Comment on above: Performed By: #### 1 [id number], [id number], [id number] ####[facility] (DEFAULT)[address] [place] [address] 18985 Baso Abs# 0.0 x10 Normal 0.0-0.2 [facility] Comment on above: Performed By: #### 1 [id number], [id number], [id number] ####[facility] (DEFAULT)[address] [place] [address] 99710 Basophils/100 WBC (Bld) 0.3 % Normal 0.2-2.0 [facility] Comment on above: Performed By: #### 1 [id number], [id number], [id number] ####[facility] (DEFAULT)[address] [place] [address] 12211 Eos Abs# 0.1 x10 Normal 0.0-0.4 [facility] Comment on above: Performed By: #### 1 [id number], [id number], [id number] ####[facility] (DEFAULT)[address] [place] [address] 63666 Eosinophils/100 WBC (Bld) 1.1 % Normal 0.9-4.0 [facility] Comment on above: Performed By: #### 1 [id number], [id number], [id number] ####[facility] (DEFAULT)[address] [place] [address] 36299 Lymph Abs# 2.0 x10 Normal 1.3-2.9 [facility] Comment on above: Performed By: #### 1 [id number], [id number], [id number] ####[facility] (DEFAULT)[address] [place] [address] 66880 Lymphocytes/100 WBC (Bld) 27 % Normal 14-48 [facility] Comment on above: Performed By: #### 1 [id number], [id number], [id number] ####[facility] (DEFAULT)[address] [place] [address] 42257 Isabela Abs# 0.7 x10 Normal 0.0-0.8 [facility] Comment on above: Performed By: #### 1 [id number], [id number], [id number] ####[facility] (DEFAULT)[address] [place] [address] 41142 Neut Abs# 4.5 x10 Normal 1.5-9.2 [facility] Comment on above: Performed By: #### 1 [id number], [id number], [id number] ####[facility] (DEFAULT)[address] [place] [address] 09909 Neutrophils/100 WBC (Bld) 62 % Normal 44-88 [facility] Comment on above: Performed By: #### 1 [id number], [id number], [id number] ####[facility] (DEFAULT)[address] [place] [address] Standardon 02-04-2021 eGFR Non AA >60 Invalid Interpretation Code [facility] Comment on above: Performed By: #### 1 [id number], [id number], [id number] ####[facility] (DEFAULT)[address] [place] [address] 17180 eGFR AA >60 Invalid Interpretation Code [facility] Comment on above: Result 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 Kidney Failure is indicated at less than 15 ml/min/1.73m2 Performed By: #### 1 [id number], [id number], [id number] ####[facility] (DEFAULT)[address] [place] [address] 39155 Anion gap [Moles/Vol] 14.0 mmol/L Normal 5.0-19.0 [facility] Comment on above: Performed By: #### 1 [id number], [id number], [id number] ####[facility] (DEFAULT)[address] [place] [address] 38490 Calcium [Mass/Vol] 9.5 mg/dL Normal 8.9-10.3 [facility] Comment on above: Performed By: #### 1 [id number], [id number], [id number] ####[facility] (DEFAULT)[address] [place] [address] 14672 Chloride [Moles/Vol] 99 mmol/L Low 101-111 [facility] Comment on above: Performed By: #### 1 [id number], [id number], [id number] ####[facility] (DEFAULT)[address] [place] [address] 54966 CO2 [Moles/Vol] 28 mmol/L Normal 21-32 [facility] Comment on above: Performed By: #### 1 [id number], [id number], [id number] ####[facility] (DEFAULT)[address] [place] [address] 89468 Creatinine [Mass/Vol] 0.89 mg/dL Low 0.90-1.30 [facility] Comment on above: Performed By: #### 1 [id number], [id number], [id number] ####[facility] (DEFAULT)[address] [place] [address] 42953 Glucose [Mass/Vol] 135.0 mg/dL High 74.0-118.0 [facility] Comment on above: Performed By: #### 1 [id number], [id number], [id number] ####[facility] (DEFAULT)[address] [place] [address] 57195 Osmolality 278 mOsm/L Invalid Interpretation Code [facility] Comment on above: Performed By: #### 1 [id number], [id number], [id number] ####[facility] (DEFAULT)[address] [place] [address] 46537 Potassium [Moles/Vol] 4.1 mmol/L Normal 3.6-5.1 [facility] Comment on above: Performed By: #### 1 [id number], [id number], 0286757 ####[facility] (DEFAULT)[address] [place] [address] 85665 Sodium [Moles/Vol] 137.0 mmol/L Normal 136.0-144.0 [facility] Comment on above: Performed By: #### 1 [id number], [id number], [id number] ####[facility] (DEFAULT)[address] [place] [address] 38355 Urea nitrogen [Mass/Vol] 19 mg/dL Normal 8-26 [facility] Comment on above: Performed By: #### 1 [id number], [id number], [id number] ####[facility] (DEFAULT)[address] [place] [address] 74078 Urea nitrogen/Creatinine [Mass ratio] 21.0 mg/mg High 4.6-16.2 [facility] Comment on above: Performed By: #### 1 [id number], [id number], [id number] ####[facility] (DEFAULT)[address] [place] [address] CBC w/ Auto Diffon Erythrocyte distribution width (RBC) [Ratio] 13.4 % Normal 11.5-15.0 [facility] Comment on above: Performed By: #### 1 [id number], [id number], [id number] ####[facility] (DEFAULT)[address] [place] [address] Hematocrit (Bld) [Volume fraction] 48.0 % Normal 34.8-51.9 [facility] Comment on above: Performed By: #### 1 [id number], [id number], 6136692 ####[facility] (DEFAULT)[address] [place] [address] 00812 Hemoglobin (Bld) [Mass/Vol] 15.5 g/dL Normal 11.8-17.7 [facility] Comment on above: Performed By: #### 1 [id number], [id number], [id number] ####[facility] (DEFAULT)[address] [place] [address] 02316 Instr WBC 7.3 x10 Invalid Interpretation Code [facility] Comment on above: Performed By: #### 1 [id number], [id number], [id number] ####[facility] (DEFAULT)[address] [place] [address] 03956 Man Diff? Auto Normal [facility] Comment on above: Performed By: #### 1 [id number], [id number], [id number] ####[facility] (DEFAULT)[address] [place] [address] 11490 MCH (RBC) [Entitic mass] 30 pg Normal 24-34 [facility] Comment on above: Performed By: #### 1 [id number], [id number], [id number] ####[facility] (DEFAULT)[address] [place] [address] 82248 MCHC (RBC) [Mass/Vol] 32 g/dL Normal 26-37 [facility] Comment on above: Performed By: #### 1 [id number], [id number], [id number] ####[facility] (DEFAULT)[address] [place] [address] 16971 MCV (RBC) [Entitic vol] 94 fL Normal 81-100 [facility] Comment on above: Performed By: #### 1 [id number], [id number], 5078853 ####[facility] (DEFAULT)[address] [place] [address] Platelet 196 x10 Normal 138-427 [facility] Comment on above: Performed By: #### 1 [id number], [id number], [id number] ####[facility] (DEFAULT)[address] [place] [address] Platelet mean volume (Bld) [Entitic vol] 10.3 fL High 6.3-10.2 [facility] Comment on above: Performed By: #### 1 [id number], [id number], [id number] ####[facility] (DEFAULT)[address] [place] [address] RBC 5.13 x10 Normal 3.70-5.30 [facility] Comment on above: Performed By: #### 1 [id number], [id number], 4563743 ####[facility] (DEFAULT)[address] [place] [address] WBC 7.3 x10 Normal 3.5-10.5 [facility] Comment on above: Performed By: #### 1 [id number], [id number], 0247997 ####[facility] (DEFAULT)[address] [place] [address] UA w Culture if Ind Standard on 02-04-2021 Breakpoint UA Normal [facility] Comment on above: Performed By: #### 1 [id number] #### [facility] (DEFAULT) [address] [place] [address] Color (U) Yellow [facility] Comment on above: Performed By: #### 1 [id number] #### [facility] (DEFAULT) [address] [place] [address] Culture? No [facility] Comment on above: Result Comment: Resu lt created by rule GL_MAGR_ADD_UA_[email or web address] Result created by rule GL_MAGR_ADD_UA_CULT1 Performed By: #### 1 [id number] #### [facility] (DEFAULT) [address] [place] [address] Glucose (U) [Mass/Vol] Negative [facility] Comment on above: Performed By: #### 1 [id number] #### [facility] (DEFAULT) [address] [place] [address] Ketones Ql (U) Negative [facility] Comment on above: Performed By: #### 1 [id number] #### [facility] (DEFAULT) [address] [place] [address] Micro? Not Indicated [facility] Comment on above: Result Comment: Resu lt created by rule GL_MAGR_ADD_UA_MICRO Performed By: #### 1 [id number] #### [facility] (DEFAULT) [address] [place] [address] UA Bilirubin Negative Normal [facility] Comment on above: Performed By: #### 1 [id number] #### [facility] (DEFAULT) [address] [place] [address] 65418 UA Blood Negative Normal NEGATIVE [facility] Comment on above: Performed By: #### 1 [id number] #### [facility] (DEFAULT) [address] [place] [address] 60251 UA Clarity CLEAR Normal CLEAR [facility] Comment on above: Performed By: #### 1 [id number] #### [facility] (DEFAULT) [address] [place] [address] 01353 UA Leuk Est Negative Normal [facility] Comment on above: Performed By: #### 1 [id number] #### [facility] (DEFAULT) [address] [address] UA Nitrite Negative Normal NEGATIVE [facility] Comment on above: Performed By: #### 1 [id number] #### [facility] (DEFAULT) [address] [place] [address] 17091 UA pH 6.0 Normal 5-8 [facility] Comment on above: Performed By: #### 1 [id number] #### [facility] (DEFAULT) [address] [place] [address] 56514 UA Protein Negative Normal NEGATIVE [facility] Comment on above: Performed By: #### 1 [id number] #### [facility] (DEFAULT) [address] [place] [address] 03138 UA Spec Grav >=1.030 Normal 1.001-1.035 [facility] Comment on above: Performed By: #### 1 [id number] #### [facility] (DEFAULT) [address] [place] [address] 42550 UA Urobilinogen 0.2 mg/dL Normal 0.2-1.0 [facility] Comment on above: Performed By: #### 1 [id number] #### [facility] (DEFAULT) [address] [place] [address] 25745 Urine Source Clean Catch Normal [facility] Comment on above: Performed By: #### 1 [id number] #### [facility] (DEFAULT) [address] [place] [address] 31910 XR Bone Length Studies [facility] 02-04-2021 XR Bone Length Studies Scanograms EXAM: XR BONE LENGTH STUDIES SCANOGRAMS HISTORY: Pre-op. COMPARISON: None. TECHNIQUE: Bone length study was performed in the upright position. FINDINGS: Right femur measures 51.8 cm. Left femur measures 52.2 cm. Right tibia measures 39.8 cm. Left tibia measures 39.9 cm. Right leg from the femoral head to the ankle mortise measures 92.3 cm. Left leg from the femoral head to the ankle mortise measures 92.4 cm. No significant leg length discrepancy. Degenerative changes about the knees primarily about the medial compartments with significant joint space narrowing bilaterally. Mild degenerative change about the hip joints. No definite acute fracture or dislocation. IMPRESSION: No significant leg length discrepancy. Final Dictated by: HazneJohn winters MD Dictated DT/TM: 02/08/21 6:18 Signed (Electronic Signature): John Mckenna MD 02/08/21 7:27 am Technologist: Abilio AMADOR [facility] Echo 2D w doppler w color co mpleteOrdered By: Ej Foster on 09-23-2020 [facility] Transthoracic Echocardiography Report (TTE) Patient Name SINGH Date of Study 09/23/2020 ZAINA Morales Date of 1950 Gender Male Age 69 year(s) Race Room Number Height: 72 inch, 182.88 cm Corporate ID [id number] Weight: 288 pounds, 130.6 kg # Patient Acct [id number] BSA: 2.49 m^2 BMI: 39.06 # kg/m^2 MR # [id number] Computer Information Systems Instructor Debi Lopez Interpreting Physician Ej Foster Fellow Referring Nurse Practitioner Interpreting Referring Physician Ej Foster Type of Study TTE procedure:2D Echocardiogram, M-Mode, Doppler, Color Doppler. Procedure Date Date: 09/23/2020 Start: 11:32 AM Study Location: [facility] Indications:Atrial fibrillation. History / Tech. Comments: A fib PMHX: HTN Patient Status: Outpatient Height: 72 inches Weight: 288 pounds BSA: 2.49 m^2 BMI: 39.06 kg/m^2 BP: 129/87 mmHg CONCLUSIONS Summary Global left ventricular systolic function appears preserved with an estimated ejection fraction of 55%. The left ventricular cavity size is within normal limits and the left ventricular wall thickness is mildly increased. No definite specific wall motion abnormalities were identified. The left atrium is mildly dilated (29-33) with a left atrial volume index of 30 ml/m2. Mild mitral and tricuspid regurgitation. Evidence of mild (grade I) diastolic dysfunction is seen. The aortic root is considered to be at the upper limits of normal in size when corrected for body surface area. Signature FINDINGS Left Atrium The left atrium is mildly dilated (29-33) with a left atrial volume index of 30 ml/m2. Left Ventricle Global left ventricular systolic function appears preserved with an estimated ejection fraction of 55%. The left ventricular cavity size is within normal limits and the left ventricular wall thickness is mildly increased. No definite specific wall motion abnormalities were identified. Right Atrium Right atrium is normal in size. Right Ventricle Normal right ventricular size and function. Mitral Valve Normal mitral valve structure and function. Mild mitral regurgitation. Aortic Valve Normal aortic valve structure and function without stenosis or regurgitation. Tricuspid Valve Normal tricuspid valve structure with mild tricuspid regurgitation. Pulmonic Valve The pulmonic valve is normal in structure. Pericardial Effusion No significant pericardial effusion is seen. Miscellaneous Evidence of mild (grade I) diastolic dysfunction is seen. The aortic root is considered to be at the upper limits of normal in size when corrected for body surface area. M-mode / 2D Measurements & Calculations: LVIDd:4.7 cm(3.7 - 5.6 cm) Diastolic Volume:113.25 ml LVIDs:3.77 cm(2.2 - 4.0 cm) Systolic Volume:47.75 ml IVSd:1.43 cm(0.6 - 1.1 cm) Aortic Root:3.82 cm(2.0 - 3.7 cm) LVPWd:1.45 cm(0.6 - 1.1 cm) LA Dimension: 4.62 cm(1.9 - 4.0 cm) Fractional Shortenin.79 % LA volume/Index: 75.8 ml /30m^2 Calculated LVEF (%): 57.84 % AV Cusp Separation: 2.18 cm Mitral: Aortic Valve Area (P1/2-Time): 2.28 cm^2 Peak Velocity: 1.34 m/s Peak E-Wave: 0.50 m/s Mean Velocity: 0.94 m/s Peak A-Wave: 1.08 m/s Peak Gradient: 7.18 mmHg E/A Ratio: 0.46 Mean Gradient: 3.93 mmHg Peak Gradient: 0.98 mmHg Acceleration Time: 116.03 msec P1/2t: 96.54 msec AV VTI: 33.59 cm Tricuspid: Pulmonic: Estimated RVSP: 21.79 mmHg Peak TR Velocity: 2.17 m/s Peak TR Gradient: 18.78107 mmHg Estimated RA Pressure: 3 mmHg Estimated PASP: 21.79 mmHg Diastology / Tissue Doppler Lateral Wall E' velocity:0.07 m/s Lateral Wall E/E':7.23 [facility] Work Phone: Shankar, [facility] Incoming Cardio Results From [facility]/ - 09/23/2020 5:27 PM EDT [facility] Transthoracic Echocardiography Report (TTE) Patient Name HEBERASHTYN Date of Study 09/23/2020 ZAINA Morales Date of 1950 Gender Male Age 69 year(s) Race Room Number Height: 72 inch, 182.88 cm Corporate ID [id number] Weight: 288 pounds, 130.6 kg # Patient Acct [id number] BSA: 2.49 m^2 BMI: 39.06 # kg/m^2 MR # [id number] Computer Information Systems Instructor Debi Lopez Interpreting Physician Ej Foster Fellow Referring Nurse Practitioner Interpreting Referring Physician Ej Foster Fellow Type of Study TTE procedure:2D Echocardiogram, M-Mode, Doppler, Color Doppler. Procedure Date Date: 09/23/2020 Start: 11:32 AM Study Location: [facility] Indications:Atrial fibrillation. History / Tech. Comments: Naty juarez PMHX: HTN Patient Status: Outpatient Height: 72 inches Weight: 288 pounds BSA: 2.49 m^2 BMI: 39.06 kg/m^2 BP: 129/87 mmHg CONCLUSIONS Summary Global left ventricular systolic function appears preserved with an estimated ejection fraction of 55%. The left ventricular cavity size is within normal limits and the left ventricular wall thickness is mildly increased. No definite specific wall motion abnormalities were identified. The left atrium is mildly dilated (29-33) with a left atrial volume index of 30 ml/m2. Mild mitral and tricuspid regurgitation. Evidence of mild (grade I) diastolic dysfunction is seen. The aortic root is considered to be at the upper limits of normal in size when corrected for body surface area. Signature - - - - FINDINGS Left Atrium The left atrium is mildly dilated (29-33) with a left atrial volume index of 30 ml/m2. Left Ventricle Global left ventricular systolic function appears preserved with an estimated ejection fraction of 55%. The left ventricular cavity size is within normal limits and the left ventricular wall thickness is mildly increased. No definite specific wall motion abnormalities were identified. Right Atrium Right atrium is normal in size. Right Ventricle Normal right ventricular size and function. Mitral Valve Normal mitral valve structure and function. Mild mitral regurgitation. Aortic Valve Normal aortic valve structure and function without stenosis or regurgitation. Tricuspid Valve Normal tricuspid valve structure with mild tricuspid regurgitation. Pulmonic Valve The pulmonic valve is normal in structure. Pericardial Effusion No significant pericardial effusion is seen. Miscellaneous Evidence of mild (grade I) diastolic dysfunction is seen. The aortic root is considered to be at the upper limits of normal in size when corrected for body surface area. M-mode / 2D Measurements & Calculations: LVIDd:4.7 cm(3.7 - 5.6 cm) Diastolic Volume:113.25 ml LVIDs:3.77 cm(2.2 - 4.0 cm) Systolic Volume:47.75 ml IVSd:1.43 cm(0.6 - 1.1 cm) Aortic Root:3.82 cm(2.0 - 3.7 cm) LVPWd:1.45 cm(0.6 - 1.1 cm) LA Dimension: 4.62 cm(1.9 - 4.0 cm) Fractional Shortenin.79 % LA volume/Index: 75.8 ml /30m^2 Calculated LVEF (%): 57.84 % AV Cusp Separation: 2.18 cm Mitral: Aortic Valve Area (P1/2-Time): 2.28 cm^2 Peak Velocity: 1.34 m/s Peak E-Wave: 0.50 m/s Mean Velocity: 0.94 m/s Peak A-Wave: 1.08 m/s Peak Gradient: 7.18 mmHg E/A Ratio: 0.46 Mean Gradient: 3.93 mmHg Peak Gradient: 0.98 mmHg Acceleration Time: 116.03 msec P1/2t: 96.54 msec AV VTI: 33.59 cm Tricuspid: Pulmonic: Estimated RVSP: 21.79 mmHg Peak TR Velocity: 2.17 m/s Peak TR Gradient: 18.58123 mmHg Estimated RA Pressure: 3 mmHg Estimated PASP: 21.79 mmHg Diastology / Tissue Doppler Lateral Wall E' velocity:0.07 m/s Lateral Wall E/E':7.23 [facility] [employer] Phone: [facility] [employer] [facility] Phone: Basic Metabolic Panelon 02-14 Anion gap [Moles/Vol] 10 mmol/L 9 - 17 mmol/L [place], [place] Bun/Cre Ratio 21 High [place], [place] Calcium [Mass/Vol] 9.7 mg/dL 8.6 - 10. 4 mg/dL [place] Chloride [Moles/Vol] 101 mmol/L 98 - 10 7 mmol/L [place] CO2 [Moles/Vol] 28 mmol/L 20 - 31 mmol/L [place] Creatinine [Mass/Vol] 0.89 mg/dL 0.7 - 1.2 mg/dL [place] GFR >60 >60 mL/min [place], [place] GFR Non- >60 >60 mL/min [place] Glucose [Mass/Vol] 101 mg/dL High 70 - 99 mg/dL [place] Interpretation and review of laboratory results Abnormal [place] Potassium [Moles/Vol] 4.3 mmol/L 3.7 - 5.3 mmol/L [place] Sodium [Moles/Vol] 139 mmol/L 135 - 144 mmol/L [place] Urea nitrogen [Mass/Vol] 19 mg/dL 8 - 23 mg/dL [place] Lipid Panelon 03-10-2020 Cholesterol [Mass/Vol] 162 mg/dL <200 [place] Comment on above: Cholesterol Guidelines: <200 Desirable 200-240 Borderline >240 Undesirable Cholesterol in HDL [Mass/Vol] 41 mg/dL >40 [place] Comment on above: HDL Guidelines: <40 Undesirable 40-59 Borderline >59 Desirable Cholesterol in LDL [Mass/Vol] 102 mg/dL 0 - 130 mg/dL [place] Comment on above: LDL Guidelines: <100 Desirable 100-129 Near to/above Desirable 130-159 Borderline >159 Undesirable Direct (measured) LDL and calculated LDL are not interchangeable tests. Cholesterol in VLDL [Mass/Vol] NOT REPORTED 1 - 30 mg/dL [place] Cholesterol.total/Ch olesterol in HDL [Mass ratio] 4 {ratio} <5 [place] Triglyceride [Mass/Vol] 97 mg/dL <150 [place] Comment on above: Triglyceride Guidelines: <150 Desirable 150-199 Borderline 200-499 High >499 Very high Based on AHA Guidelines for fasting triglyceride, November 2011. Metabolic Panelon 03-10-2020 GFR/1.73 sq M predicted among non-blacks MDRD (S/P/Bld) [Vol rate/Area] [place], [place] Comment on above: Stage 1: Some kidney damage normal GFR Stage 2: Mild kidney damage GFR 60-89 Stage 3: Moderate kidney damage GFR 30-59 Stage 4: Severe kidney damage GFR 15-29 Stage 5: Severe kidney damage GFR <15 ESRD - chronic treatment by dialysis or transplant Average GFR for 70 o r more years old: 75 mL/min/1.73sq m Chronic Kidney Disease: <60 mL/min/1.73sq m Kidney failure: <15 mL/min/1.73sq m eGFR calculated using average adult body mass. Additional eGFR calculator available at: http://www.[employer]/multiple_crcl_2012.htm Basic Metabolic Panelon 12-0 Anion gap [Moles/Vol] 9 mmol/L 9 - 17 mmol/L [place] Bun/Cre Ratio 16 [place] Calcium [Mass/Vol] 9.6 mg/dL 8.6 - 10. 4 mg/dL [place] Chloride [Moles/Vol] 101 mmol/L 98 - 10 7 mmol/L [place] CO2 [Moles/Vol] 29 mmol/L 20 - 31 mmol/L [place] Creatinine [Mass/Vol] 0.76 mg/dL 0.7 - 1.2 mg/dL [place] GFR >60 >60 mL/min [place], [place] GFR Non- >60 >60 mL/min [place] Glucose [Mass/Vol] 118 mg/dL High 70 - 99 mg/dL [place], [place] Interpretation and review of laboratory results Abnormal [place] Potassium [Moles/Vol] 4.7 mmol/L 3.7 - 5.3 mmol/L [place] Sodium [Moles/Vol] 139 mmol/L 135 - 144 mmol/L [place] Urea nitrogen [Mass/Vol] 12 mg/dL 8 - 23 mg/dL [place] CBCon 01-22-2020 Erythrocyte distribution width (RBC) [Ratio] 14.2 % 11.8 - 14.4 % [place] Hematocrit (Bld) [Volume fraction] 43.4 % 40.7 - 50.3 % [place] Hemoglobin (Bld) [Mass/Vol] 13.4 g/dL 13 - 17 g/dL [place] MCH (RBC) [Entitic mass] 28.9 pg 25.2 - 33.5 pg [place] MCHC (RBC) [Mass/Vol] 30.9 g/dL 28.4 - 34.8 g/dL [place] MCV (RBC) [Entitic vol] 93.7 fL 82.6 - 102.9 fL [place] Platelet mean volume (Bld) [Entitic vol] 9.9 fL 8.1 - 13.5 fL [place] Platelets (Bld) [#/Vol] 217 10*3/uL [place] RBC (Bld) [#/Vol] 4.63 10*6/uL 4.21 - 5.7 7 m/uL [place] WBC (Bld) [#/Vol] 0.0 10*3/uL 0.0 per 10 0 WBC [place] WBC (Bld) [#/Vol] 5.7 10*3/uL [place] ECHO Complete 2D W Doppler W Coloron 01-22-2020 [facility] Transthoracic Echocardiography Report (TTE) Patient Name SINGH Date of Study 01/22/2020 ZAINA Morales Date of 1950 Gender Male Age 69 year(s) Race Room Number Height: 73 inch, 185.42 cm Corporate ID [id number] Weight: 273 pounds, 123.8 kg # Patient Acct [id number] BSA: 2.46 m^2 BMI: 36.02 # kg/m^2 MR # [id number] Computer Information Systems Instructor Work,Nini Interpreting Physician Ej Foster Fellow Referring Nurse Practitioner Interpreting Referring Physician Ej Foster Fellow Type of Study TTE procedure:2D Echocardiogram, M-Mode, Doppler, Color Doppler. Procedure Date Date: 01/22/2020 Start: 09:22 AM Study Location: [facility] Indications:Atrial fibrillation, Dyspnea/SOB and History of COVID-19. History / Tech. Comments: Dx: persistent atrial fibrillation, dyspnea, fluid retention, one month post-Covid Hx: HTN, DM, obesity Patient Status: Outpatient Height: 73 inches Weight: 273 pounds BSA: 2.46 m^2 BMI: 36.02 kg/m^2 BP: 135/87 mmHg CONCLUSIONS Summary Global left ventricular systolic function appears mildly reduced with an estimated ejection fraction of 50%. Mildly increased left ventricular wall thickness with a normal left ventricular cavity size. Mild global hypokinesis with no segmental abnormalities. The left atrium is severely dilated (>40) with a left atrial volume index of 42 ml/m2. Mild to moderate mitral regurgitation. Mild tricuspid regurgitation. Mild pulmonary hypertension with an estimated right ventricular systolic pressure of 33 mmHg. Diastolic function cannot be properly assessed due to atrial fibrillation. No prior studies were available for comparison. Signature FINDINGS Left Atrium The left atrium is severely dilated (>40) with a left atrial volume index of 42 ml/m2. Left Ventricle Global left ventricular systolic function appears mildly reduced with an estimated ejection fraction of 50%. Mildly increased left ventricular wall thickness with a normal left ventricular cavity size. Mild global hypokinesis with no segmental abnormalities. Right Atrium The right atrium appears mildly dilated. Right Ventricle Normal right ventricular size and function. Mitral Valve Normal mitral valve structure with mild to moderate mitral regurgitation. Aortic Valve Normal aortic valve structure and function without stenosis or regurgitation. Tricuspid Valve Mild tricuspid regurgitation. Mild pulmonary hypertension with an estimated right ventricular systolic pressure of 33 mmHg. Pulmonic Valve The pulmonic valve is normal in structure. Pericardial Effusion No significant pericardial effusion is seen. Miscellaneous Diastolic function cannot be properly assessed due to atrial fibrillation. Normal aortic root dimension. M-mode / 2D Measurements & Calculations: LVIDd:5.54 cm(3.7 - 5.6 cm) Diastolic Volume:99.8 ml LVIDs:4.85 cm(2.2 - 4.0 cm) Systolic Volume:48.14 ml IVSd:1.34 cm(0.6 - 1.1 cm) Aortic Root:3.47 cm(2.0 - 3.7 cm) LVPWd:1.22 cm(0.6 - 1.1 cm) LA Dimension: 5.02 cm(1.9 - 4.0 cm) Fractional Shortenin.45 % LA volume/Index: 103.4 ml /42m^2 Calculated LVEF (%): 51.76 % AV Cusp Separation: 2.31 cm Mitral: Aortic Valve Area (P1/2-Time): 3.4 cm^2 Peak Velocity: 1.10 m/s Peak E-Wave: 0.79 m/s Mean Velocity: 0.83 m/s Peak A-Wave: 0.40 m/s Peak Gradient: 4.84 mmHg E/A Ratio: 1.98 Mean Gradient: 2.93 mmHg Peak Gradient: 2.49 mmHg Acceleration Time: 71.83 msec P1/2t: 64.62 msec AV VTI: 21.45 cm Tricuspid: Pulmonic: Estimated RVSP: 33.03 mmHg Peak TR Velocity: 2.74 m/s Peak TR Gradient: 30.0304 mmHg Estimated RA Pressure: 3 mmHg Estimated PASP: 33.03 mmHg Diastology / Tissue Doppler Lateral Wall E' velocity:0.11 m/s Lateral Wall E/E':6.91 [facility] Shankar, [facility] Incoming Cardio Results From [facility]/ - 01/22/2020 5:08 PM EST [facility] Transthoracic Echocardiography Report (TTE) Patient Name HEBERLING Date of Study 01/22/2020 ZAINA D Date of 1950 Gender Male Age 69 year(s) Race Room Number Height: 73 inch, 185.42 cm Corporate ID [id number] Weight: 273 pounds, 123.8 kg # Patient Acct [id number] BSA: 2.46 m^2 BMI: 36.02 # kg/m^2 MR # [id number] Computer Information Systems Instructor PerezNini Interpreting Physician Ej Foster Fellow Referring Nurse Practitioner Interpreting Referring Physician Ej Foster Fellow Type of Study TTE procedure:2D Echocardiogram, M-Mode, Doppler, Color Doppler. Procedure Date Date: 01/22/2020 Start: 09:22 AM Study Location: [facility] Indications:Atrial fibrillation, Dyspnea/SOB and History of COVID-19. History / Tech. Comments: Dx: persistent atrial fibrillation, dyspnea, fluid retention, one month post-Covid Hx: HTN, DM, obesity Patient Status: Outpatient Height: 73 inches Weight: 273 pounds BSA: 2.46 m^2 BMI: 36.02 kg/m^2 BP: 135/87 mmHg CONCLUSIONS Summary Global left ventricular systolic function appears mildly reduced with an estimated ejection fraction of 50%. Mildly increased left ventricular wall thickness with a normal left ventricular cavity size. Mild global hypokinesis with no segmental abnormalities. The left atrium is severely dilated (>40) with a left atrial volume index of 42 ml/m2. Mild to moderate mitral regurgitation. Mild tricuspid regurgitation. Mild pulmonary hypertension with an estimated right ventricular systolic pressure of 33 mmHg. Diastolic function cannot be properly assessed due to atrial fibrillation. No prior studies were available for comparison. Signature - - - - FINDINGS Left Atrium The left atrium is severely dilated (>40) with a left atrial volume index of 42 ml/m2. Left Ventricle Global left ventricular systolic function appears mildly reduced with an estimated ejection fraction of 50%. Mildly increased left ventricular wall thickness with a normal left ventricular cavity size. Mild global hypokinesis with no segmental abnormalities. Right Atrium The right atrium appears mildly dilated. Right Ventricle Normal right ventricular size and function. Mitral Valve Normal mitral valve structure with mild to moderate mitral regurgitation. Aortic Valve Normal aortic valve structure and function without stenosis or regurgitation. Tricuspid Valve Mild tricuspid regurgitation. Mild pulmonary hypertension with an estimated right ventricular systolic pressure of 33 mmHg. Pulmonic Valve The pulmonic valve is normal in structure. Pericardial Effusion No significant pericardial effusion is seen. Miscellaneous Diastolic function cannot be properly assessed due to atrial fibrillation. Normal aortic root dimension. M-mode / 2D Measurements & Calculations: LVIDd:5.54 cm(3.7 - 5.6 cm) Diastolic Volume:99.8 ml LVIDs:4.85 cm(2.2 - 4.0 cm) Systolic Volume:48.14 ml IVSd:1.34 cm(0.6 - 1.1 cm) Aortic Root:3.47 cm(2.0 - 3.7 cm) LVPWd:1.22 cm(0.6 - 1.1 cm) LA Dimension: 5.02 cm(1.9 - 4.0 cm) Fractional Shortenin.45 % LA volume/Index: 103.4 ml /42m^2 Calculated LVEF (%): 51.76 % AV Cusp Separation: 2.31 cm Mitral: Aortic Valve Area (P1/2-Time): 3.4 cm^2 Peak Velocity: 1.10 m/s Peak E-Wave: 0.79 m/s Mean Velocity: 0.83 m/s Peak A-Wave: 0.40 m/s Peak Gradient: 4.84 mmHg E/A Ratio: 1.98 Mean Gradient: 2.93 mmHg Peak Gradient: 2.49 mmHg Acceleration Time: 71.83 msec P1/2t: 64.62 msec AV VTI: 21.45 cm Tricuspid: Pulmonic: Estimated RVSP: 33.03 mmHg Peak TR Velocity: 2.74 m/s Peak TR Gradient: 30.0304 mmHg Estimated RA Pressure: 3 mmHg Estimated PASP: 33.03 mmHg Diastology / Tissue Doppler Lateral Wall E' velocity:0.11 m/s Lateral Wall E/E':6.91 [place] Hemoglobin A1Con 01-22-2020 Glucose [Mass/Vol] 123 mg/dL [place] Comment on above: The ADA and AACC rec ommend providing the estimated average glucose result to permit better patient understanding of their HBA1c result. HbA1c (Bld) [Mass fraction] 5.9 % 4 - 6 % [place] Metabolic Panelon 01-22-2020 GFR/1.73 sq M predicted among non-blacks MDRD (S/P/Bld) [Vol rate/Area] [place] Comment on above: Stage 1: Some kidney damage normal GFR Stage 2: Mild kidney damage GFR 60-89 Stage 3: Moderate kidney damage GFR 30-59 Stage 4: Severe kidney damage GFR 15-29 Stage 5: Severe kidney damage GFR <15 ESRD - chronic treatment by dialysis or transplant Average GFR for 70 o r more years old: 75 mL/min/1.73sq m Chronic Kidney Disease: <60 mL/min/1.73sq m Kidney failure: <15 mL/min/1.73sq m eGFR calculated using average adult body mass. Additional eGFR calculator available at: http://www.[employer]/multiple_crcl_2012.htm Troponin Ion 01-22-2020 Troponin I.cardiac [Mass/Vol] NOT REPORTED [place] Troponin T.cardiac [Mass/Vol] NOT REPORTED <0.03 ng/mL [place] Troponin, High Sensitivity 15 ng/L 0 - 22 ng/L [place] Comment on above: High Sensitivity Troponin values cannot be compared with other Troponin methodologies. Patients with high levels of Biotin oral intake (i.e >5mg/day) may have falsely decreased Troponin levels. Samples collected within 8 hours of biotin intake may require additional information for diagnosis. BNPon 12-16-2019 Natriuretic peptide B (Bld) [Mass/Vol] 595.0 pg/mL Normal <=900.0 [facility] Comment on above: Performed By: #### T ROP, BNP, CMP, CRP #### [facility] [address] [place] [id number] Cheryl Zarina CBC AUTO DIFFon 12-16-2019 Basophils (Bld) [#/Vol] 0.0 103/ul Normal 0.0-0.1 [facility] Comment on above: Performed By: #### C BC #### [facility] [address] [place], [place] [id number] Cheryl Zarina Basophils/100 WBC (Bld) 0.1 % Critically low 0.2-2.0 [facility] Comment on above: Performed By: #### C BC #### [facility] [address] [place], [place] [id number] Cheryl Zarina Eosinophils (Bld) [#/Vol] 0.0 103/ul Normal 0.0-0.7 [facility] Comment on above: Performed By: #### C BC #### [facility] [address] [place], [place] [id number] Cheryl Zarina Eosinophils/100 WBC (Bld) 0.0 % Critically low 0.9-7.0 [facility] Comment on above: Performed By: #### C BC #### [facility] [address] [place], [place] [id number] Cheryl Zarina Erythrocyte distribution width (RBC) [Ratio] 12.9 % Normal 11.0-15.0 [facility] Comment on above: Performed By: #### C BC #### [facility] [address] [place], [place] [id number] Cheryl Zarina Hematocrit (Bld) [Volume fraction] 45.2 % Normal 42.0-54.0 [facility] Comment on above: Performed By: #### C BC #### [facility] [address] [place], [place] [id number] Cheryl Zarina Hemoglobin (Bld) [Mass/Vol] 15.1 g/dL Normal 14.0-18.0 [facility] Comment on above: Performed By: #### C BC #### [facility] [address] [phone] Cheryl Zarina IG # 0.06 10e3/ul Critically high 0.00-0.03 [facility] Comment on above: Performed By: #### C BC #### [facility] [address] [id number] Cheryl Zarina IG % 0.6 % Critically high 0.0-0.5 [facility] Comment on above: Performed By: #### C BC #### [facility] [address] [place], [place] [id number] Cheryl Zarina Lymphocytes (Bld) [#/Vol] 1.0 103/ul Critically low 1.2-3.8 [facility] Comment on above: Performed By: #### C BC #### [facility] [address] [place] [address] Cheryl Zarina Lymphocytes/100 WBC (Bld) 10.1 % Critically low 20.5-60.0 [facility] Comment on above: Performed By: #### C BC #### [facility] [address] [place], [place] [phone] Cheryl Zarina MANUAL DIFF REQ NO Normal [facility] Comment on above: Performed By: #### C BC #### [facility] [address] [place] [address] Cheryl Zarina MCH (RBC) [Entitic mass] 30.0 pg Normal 25.9-34.0 [facility] Comment on above: Performed By: #### C BC #### [facility] [address] [place], [place] [phone] Cheryl Zarina MCHC (RBC) [Mass/Vol] 33.4 g/dL Normal 29.9-35.2 [facility] Comment on above: Performed By: #### C BC #### [facility] [address] [place], [place] [phone] Cheryl Zarina MCV (RBC) [Entitic vol] 89.7 fL Normal 80.0-94.0 [facility] Comment on above: Performed By: #### C BC #### [facility] [address] [place], [place] [address] Cheryl Zarina Monocytes (Bld) [#/Vol] 0.3 103/ul Normal 0.3-0.8 [facility] Comment on above: Performed By: #### C BC #### [facility] [address] [place], [place] [address] Cheryl Zarina Monocytes/100 WBC (Bld) 3.4 % Normal 1.7-12.0 [facility] Comment on above: Performed By: #### C BC #### [facility] [address] [place], [place] [address] Cheryl Zarina Neutrophils (Bld) [#/Vol] 8.3 103/ul Critically high 1.4-6.5 [facility] Comment on above: Performed By: #### C BC #### [facility] [address] [place], [place] [address] Cheryl Zarina Neutrophils/100 WBC (Bld) 85.8 % Critically high 43.0-75.0 [facility] Comment on above: Performed By: #### C BC #### [facility] [address] [place], [place] [address] Cheryl Zarina Platelet mean volume (Bld) [Entitic vol] 9.7 fL Normal 9.5-13.5 [facility] Comment on above: Performed By: #### C BC #### [facility] [address] [place] [address] Cheryl Zarina Platelets (Bld) [#/Vol] 270 103/ul Normal 150-450 [facility] Comment on above: Performed By: #### C BC #### [facility] [address] [place], [place] [address] Cheryl Zarina RBC (Bld) [#/Vol] 5.04 106/ul Normal 4.70-6.[address] [facility] Comment on above: Performed By: #### C BC #### [facility] [address] [place], [place] [address] Cheryl Zarina WBC (Bld) [#/Vol] 9.7 103/ul Normal 4.0-11.0 [facility] Comment on above: Performed By: #### C BC #### [facility] [address] [place], [place] [address] Cheryl Srinivasan CRPon 12-16-2019 CRP [Mass/Vol] 12.3 mg/dL Critically high <=1.0 [facility] Comment on above: Performed By: #### C BC #### [facility] [address] [place], [place] [address] Cheryl Srinivasan CTA CHEST WO W CONon 020 CTA CHEST WO W CON CTA CHEST WO W CON, 12/16/2019 3:37 AM EST, [place]001 INDICATION: SHORTNESS OF BREATH ADDITIONAL CLINICAL INFORMATION: Ordering Provider Reason For Exam: Technologist Note: Additional: None COMPARISON: None available at the time of dictation. TECHNIQUE: CT angiography of the chest was performed without IV contrast followed by IV contrast, including 3D post processing CTA image reconstruction. CT dose reduction technique was used, including Automated Exposure Control. IV CONTRAST: 80 cc Omnipaque IV FINDINGS: Diagnostic quality: Adequate There is no evidence for pulmonary embolism. The heart is not enlarged. There is no pericardial effusion. There are no abnormally enlarged hilar or mediastinal lymph nodes. The central tracheobronchial tree is clear. The lungs demonstrate multifocal groundglass opacification demonstrated in any primary peripheral distribution with subpleural banding.. There is no pleural effusion. No acute process identified in the visualized upper abdomen. No destructive osseous changes are seen. IMPRESSION: No CT findings to suggest pulmonary embolism. Pulmonary findings consistent with atypical/viral infection such as COVID 19 infection. Electronically authenticated by: RUPESH ULRICH Date: 2019-12-16 05:43 Normal [facility] D-DIMERon 12-16-2019 D-DIMER COMMENTS SEE BELOW Normal [facility] Comment on above: Result Comment: Incr eases in D-Dimer concentration observed with thromboembolic events can be variable due to localization, size, and age of the thrombus. Therefore, a thromboembolic event cannot be diagnosed with certainty on the basis of the reference range. D-Dimers may also be elevated for a variety of disorders including: advanced age, , coronary disease, cancer, liver disease, infection, inflammation, hematoma, DIC, trauma, post-surgery, diabetes, thrombolytic or anticoagulant therapy, stress, and generalizd hospitalization. Performed By: #### D DIM, PT, PTT #### [facility] [address] [place], [place] [phone] Cheryl Srinivasan Fibrin D-dimer FEU IA (Bld) [Mass/Vol] 0.84 ug/mL Critically high 0.19-0.50 [facility] Comment on above: Result Comment: test repeated critcal value verified Performed By: #### D DIM, PT, PTT #### [facility] [address] [place], [place] [phone] Cheryl Srinivasan LACTATE/LACTIC ACIDon 2019 Lactate [Moles/Vol] 1.8 mmol/L Normal 0.7-2.0 [facility] Comment on above: Performed By: #### L ACT #### [facility] [address] [place] [address] Cheryl Srinivasan PROF 14(COMP METB)on 020 Albumin [Mass/Vol] 3.2 g/dL Critically low 3.5-5.0 [facility] Comment on above: Performed By: #### T ROP, BNP, CMP, CRP #### [facility] [address] [place], [place] [phone] Cheryljason Srinivasan Albumin/Globulin [Mass ratio] 0.8 {ratio} Normal [facility] Comment on above: Performed By: #### T ROP, BNP, CMP, CRP #### [facility] [address] [place], [place] [phone] Cheryl Zarina ALP [Catalytic activity/Vol] 85 U/L Normal 38-126 [facility] Comment on above: Performed By: #### T ROP, BNP, CMP, CRP #### [facility] [address] [place], [place] [phone] Cheryl Zarina ALT [Catalytic activity/Vol] 63 U/L Normal 21-72 [facility] Comment on above: Performed By: #### T ROP, BNP, CMP, CRP #### [facility] [address] [place], [place] [phone] Cheryl Zarina Anion gap [Moles/Vol] 14.2 mmol/L Normal [facility] Comment on above: Performed By: #### T ROP, BNP, CMP, CRP #### [facility] [address] [address] Cheryl Zarina AST [Catalytic activity/Vol] 53 U/L Normal 17-59 [facility] Comment on above: Performed By: #### T ROP, BNP, CMP, CRP #### [facility] [address] [address] Cheryl Zarina Bilirubin Ql (U) 1.0 mg/dL Normal 0.2-1.[address] [facility] Comment on above: Performed By: #### T ROP, BNP, CMP, CRP #### [facility] [address] [address] Cheryl Zarina Calcium [Mass/Vol] 9.0 mg/dL Normal 8.4-10.[address] [facility] Comment on above: Performed By: #### T ROP, BNP, CMP, CRP #### [facility] [address] [address] Cheryl Zarina Chloride [Moles/Vol] 96 mmol/L Critically low 98-107 [facility] Comment on above: Performed By: #### T ROP, BNP, CMP, CRP #### [facility] [address] [place] [address] Cheryl Zarina CO2 [Moles/Vol] 25.8 mmol/L Normal 22.0-30.[address] [facility] Comment on above: Performed By: #### T ROP, BNP, CMP, CRP #### [facility] [address] [address] Cheryl Zarina Creatinine [Mass/Vol] 0.90 mg/dL Normal 0.66-1.25 [facility] Comment on above: Performed By: #### T ROP, BNP, CMP, CRP #### [facility] [address] [place] [address] Cheryl Zarina EGFR-AF [place] >60 Normal >=[address] [facility] Comment on above: Performed By: #### T ROP, BNP, CMP, CRP #### [facility] [address] [address] Cheryl Zarina EGFR-NON AF [place] >60 Normal >=60 [facility] Comment on above: Performed By: #### T ROP, BNP, CMP, CRP #### [facility] [address] [address] Cheryl Zarina Globulin (S) [Mass/Vol] 4.1 g/dL Normal [facility] Comment on above: Performed By: #### T ROP, BNP, CMP, CRP #### [facility] [address] [address] Cheryl Zarina Glucose [Mass/Vol] 146 mg/dL Critically high 74-106 [facility] Comment on above: Performed By: #### T ROP, BNP, CMP, CRP #### [facility] [address] [address] Cheryl Zarina Potassium [Moles/Vol] 4.0 mmol/L Normal 3.4-5.0 [facility] Comment on above: Performed By: #### T ROP, BNP, CMP, CRP #### [facility] [address] [address] Cheryl Zarina Protein [Mass/Vol] 7.3 g/dL Normal 6.1-8.2 [facility] Comment on above: Performed By: #### T ROP, BNP, CMP, CRP #### [facility] [address] [place] [address] Cheryl Zarina Sodium [Moles/Vol] 132 mmol/L Critically low 137-145 [facility] Comment on above: Performed By: #### T ROP, BNP, CMP, CRP #### [facility] [address] [place] [address] Cheryl Zarina Urea nitrogen [Mass/Vol] 18.0 mg/dL Normal 9.0-20.0 [facility] Comment on above: Performed By: #### T ROP, BNP, CMP, CRP #### [facility] [address] [address] Cheryl Zarina Urea nitrogen/Creatinine [Mass ratio] 20.0 mg/mg Normal [facility] Comment on above: Performed By: #### T ROP, BNP, CMP, CRP #### [facility] [address] [place], [place] [address] Cheryl Zarina PROTIMEon 12-16-2019 INR Coag (PPP) [Relative time] 0.97 {INR} Normal [facility] Comment on above: Performed By: #### D DIM, PT, PTT #### [facility] [address] [place] [id number] Cheryl Zarina PT Coag (PPP) [Time] PLEASE NOTE: NORMAL RANGE CHANGE 10-31-2013 DUE TO REAGENT LOT CHANGE Normal [facility] Comment on above: Performed By: #### D DIM, PT, PTT #### [facility] [address] [place], [place] [phone] Cheryl Zarina PT Coag (PPP) [Time] 10.3 s Normal 9.0-11.6 [facility] Comment on above: Performed By: #### D DIM, PT, PTT #### [facility] [address] [place], [place] [phone] Cheryl Zarina PT Coag (PPP) [Time] SEE BELOW Normal [facility] Comment on above: Result Comment: CHEMO RED INR: 2.0 - 3.0 CONDITIONS NOT LISTED BELOW 2.5 - 3.5 FOR PROSTHETIC HEART VALVE REPLACEMENT 2.5 - 3.5 RECURRENT THROMBOSIS Performed By: #### D DIM, PT, PTT #### [facility] [address] [place], [place] [phone] Cheryl Zarina PTTon 12-16-2019 aPTT Coag (Bld) [Time] PLEASE NOTE: NORMAL RANGE CHANGE 01-07-2015 DUE TO REAGENT LOT CHANGE Normal [facility] Comment on above: Performed By: #### D DIM, PT, PTT #### [facility] [address] [place] [id number] Cheryl Zarina aPTT Coag (Bld) [Time] 26.0 s Normal 22.3-36.2 [facility] Comment on above: Performed By: #### D DIM, PT, PTT #### [facility] [address] [place], [place] [phone] Cheryl Zarina Rapid Covid-19 PCRon 020 [employer] LDT Info SEE BELOW Normal [facility] Comment on above: Result Comment: This test is not yet approved or cleared by the [place] Food and Drug Administration (FDA) . This test was developed by [employer], [place]. The performance characteristics of this test were validated by [facility]. The results are not intended to be used as the sole means for clinical diagnosis or patient management decisions. [facility] is authorized under Clinical Laboratory Improvement Amendments (CLIA) to perform high-complexity testing. When diagnostic testing is negative, the possibility of a false negative should be considered in the context of a patients recent exposures and the presence of clinical signs and symptoms consistent with SARS-CoV-2. Performed By: #### C VDRPD #### [facility] [address] [place] [address] Cheryl Srinivasan SARS-CoV-2 DETECTED NOT DETECTED [facility] Comment on above: Result Comment: . Performed By: #### C VDRPD #### [facility] [address] [place] [address] [facility] TROPONIN - Ion 12-16-2019 Troponin I.cardiac [Mass/Vol] ng/mL Normal <=0.034 [facility] Comment on above: Performed By: #### C BC #### [facility] [address] [place] [address] Troponin I.cardiac [Mass/Vol] SEE BELOW Normal [facility] Comment on above: Result Comment: <0.0 34 ng/ml NEGATIVE 0.034-0.119 INDETERMINATE 0.120 AMI CUT OFF Performed By: #### C BC #### [facility] [address] [place] [address] Cheryl Srinivasan Vital Signs Date Time Vital Sign Value Performing Clinician Ekta bland 02-12-2020 09:31-0500 Pulse Oximetry 98 % Ej [facility] , [place] 02-12-2020 09:30-0500 BP Diastolic 73 mm[Hg] Ej [facility] , [place] 02-12-2020 09:30-0500 BP Systolic 135 mm[Hg] Ej [facility] , [place] 02-12-2020 09:30-0500 Pulse (Heart Rate) 56 /[facility] 02-12-2020 09:30-0500 Respiratory Rate 22 /min Ej Melo [facility], [place] 02-12-2020 07:14-0500 BMI (Body Mass Index) 36.89 kg/m2 Ej Melo [facility], [place] 02-12-2020 07:140500 Body weight 123.38 kg [facility] [place] 02-12-2020 07:14-0500 Height 182.9 cm [facility] [place] Encounters Encounter Date Encounter Type Care Provider Facility Start: 07-24-2023 End: 07-24-2023 ambulatory Ever Guillen MD Facility: [facility] Start: 07-20-2023 End: 07-20-2023 ambulatory ARIANNA LOU Not Available Start: 07-18-2023 End: 07-18-2023 ambulatory KENIA CASTILLO Not Available Start: 06-19-2023 End: 06-19-2023 ambulatory BOBBY PIKN Not Available Start: 06-14-2023 End: 06-30-2023 ambulatory DAVID AWAD [facility] Start: 06-09-2023 End: 06-09-2023 ambulatory KENIA CASTILLO Not Available Start: 05-24-2023 End: 05-24-2023 ambulatory DAVID HENDRICKSON Not Available Start: 05-23-2023 End: 05-23-2023 ambulatory Marina Redd Facility:[facility] Start: 05-23-2023 End: 05-23-2023 ambulatory SCALLOP CUTTER MACHINE-C Jeannine Evangelista Work Phone: [facility] Work Phone: Start: 05-23-2023 End: 05-23-2023 Patient encounter procedure SCALLOP CUTTER MACHINE-C Jeannine Evangelista Work Phone: [facility] [address] Work Phone: Start: 05-11-2023 End: 05-11-2023 ambulatory SCALLOP CUTTER MACHINE-C Jeannine Evangelista Work Phone: [facility] Work Phone: Start: 05-11-2023 End: 05-11-2023 Patient encounter procedure SCALLOP CUTTER MACHINE-[place] Jeannine Estevezpatrick Work Phone: [facility] [address] Work Phone: Start: 04-24-2023 End: 04-24-2023 ambulatory MARINA REDD Not Available Start: 04-20-2023 End: 04-20-2023 ambulatory YULIYA ROMERO Not Available Start: 04-18-2023 End: 04-18-2023 ambulatory YULIYA ROMERO Not Available Start: 04-12-2023 End: 04-12-2023 ambulatory YULIYA ROMERO Not Available Start: 04-10-2023 End: 04-10-2023 ambulatory YULIYA ROMERO Not Available Start: 04-05-2023 End: 04-05-2023 ambulatory YULIYA ROMERO Not Available Start: 03-30-2023 Telephone encounter Yuliya lantigua PT Work Phone: [facility] Comment on above: re: [employer] for PT (He called noting he had just gotten verification per [employer] that if referring provider refers for therapy then PT would be covered. He gave a reference # [id number].) Start: 03-29-2023 Telephone encounter Yuliya lantigua PT Work Phone: [facility] Comment on above: re: Insurance (He ca lled re: coverage w/ insurance noted pending and I gave update of no auth yet. I explained I have been checking multiple times a day and been informed of nothing recieved. He said he was speaking to friend and as of now he [facility] and has ability to use TENS unit. I noted if there is a need to contact and he said he will most certainly do so.) Start: 03-28-2023 Telephone encounter Maddie Noa FIRE RANGER [facility] Comment on above: re: PT today (Called and noted auth is still pending for PT and in need to cx today; I informed I will keep up-to-date come his next on 03/30.) Start: 03-23-2023 Bamboo flowsheet Yuliya kinney PT Work Phone: [facility] Start: 03-23-2023 Bamboo flowsheet Yuliya kinney PT Work Phone: [facility] Start: 03-23-2023 End: 03-23-2023 ambulatory Yuliya Romero PT Work Phone: [facility] Comment on above: Left thigh pain (Cassandra andrew Dx); Muscle strain of left thigh, subsequent encounter Start: 03-14-2023 End: 03-14-2023 ambulatory MARINA REDD Not Available Start: 03-06-2023 End: 03-06-2023 ambulatory MARINA REDD Not Available Start: 03-01-2023 End: 03-01-2023 ambulatory ARIANNA LOU Not Available Start: 05-03-2022 End: 05-04-2022 ambulatory EJ FOSTER [facility] Start: 09-23-2020 End: 09-23-2020 Subsequent hospital visit by physician [facility] Echo Room [facility] Echocardiography Comment on above: Persistent atrial fi brillation (HCC); SOB (shortness of breath); Essential hypertension; Other specified diabetes mellitus with other specified complication, unspecified whether terminal gauger insulin use (HCC); Class 2 obesity with body mass index (BMI) of 36.0 to 36.9 in adult, unspecified obesity type, unspecified whether serious comorbidity present; Pain in both lower extremities Start: 03-10-2020 End: 03-12-2020 Subsequent hospital visit by physician [facility] Vascular Imaging Room [facility] Laboratory Comment on above: Controlled type 2 di abetes mellitus with hyperglycemia, without long-term current use of insulin (HCC); Persistent atrial fibrillation (HCC); SOB (shortness of breath); Essential hypertension; Other specified diabetes mellitus with other specified complication, unspecified whether skilled nursing insulin use (HCC); Class 2 obesity with body mass index (BMI) of 36.0 to 36.9 in adult, unspecified obesity type, unspecified whether serious comorbidity present; COVID-19; Fluid retention; Pain in both lower extremities Pain in both lower e xtremities; PVD (peripheral vascular disease) (HCC) Start: 02-12-2020 End: 02-12-2020 Subsequent hospital visit by physician Ej Foster Work Phone: [facility] ICU Comment on above: Arrived Start: 01-22-2020 End: 01-22-2020 Subsequent hospital visit by physician [facility] Echo Room [facility] Echocardiography Comment on above: Persistent atrial fi brillation (HCC); Essential hypertension; SOB (shortness of breath); Fluid retention; Other specified diabetes mellitus with other specified complication, unspecified whether skilled nursing insulin use (HCC); Class 2 obesity with body mass index (BMI) of 36.0 to 36.9 in adult, unspecified obesity type, unspecified whether serious comorbidity present Start: 12-16-2019 End: 12-16-2019 Patient encounter procedure [facility] Facility: Start: 12-11-2019 End: 12-11-2019 Subsequent hospital visit by physician [facility] Covid Screening Schedule [facility] Covid Screening Comment on above: Arrived Procedures Date Procedure Procedure Detail Performing Clinician Start: 09-23-2020 Echo tthrc r-t 2d w/wom-mode compl spec&colr d Ej Foster MD Work Phone: Start: 03-10-2020 Basic metabolic pane l calcium total Ej Foster Work Phone: Start: 03-10-2020 Lipid panel Ej cam Work Phone: Start: 02-12-2020 Ecg routine ecg w/le ast 12 lds w/i&r Ej Foster Work Phone: Start: 01-22-2020 Assay of troponin quantitative Ej Foster Work Phone: Start: 01-22-2020 Basic metabolic pane l calcium total Ej Foster Work Phone: Start: 01-22-2020 Blood count complete automated Ej Foster Work Phone: Start: 01-22-2020 Hemoglobin glycosyla sole a1c Ej Foster Work Phone: Start: 01-22-2020 Echo tthrc r-t 2d w/wom-mode compl spec&colr d Ej Efe Kate Aubriecarmen Work Phone: Start: 12-16-2019 End: 12-16-2019 Microscopic examination of blood, culture [facility] Comment on above: Performed By: #### B [id number] #### [facility] [address] [place], [place] [address] Cheryl Menaen Performed By: #### C BC #### [facility] [address] [place], [place] [address] Cheryl Srinivasan Plan of Treatment Date Care Activity Detail Author Start: 11-28-2028 DTaP/Tdap/Td vaccine (2 - Td or Tdap) DTaP/Tdap/Td vaccine (2 - Td or Tdap) [facility] Work Phone: Start: 11-28-2028 DTaP/Tdap/Td vaccine (2 - Td) DTaP/Tdap/Td vaccine (2 - Td) [place] Start: 03-04-2024 End: 03-04-2024 Patient encounter procedure 03/04/2024 1:00 PM EST Office Visit [facility] [address] [facility] [address] [place] [id number] Marina Redd PA [address] [facility] [address] [place] [address] [facility] Start: 12-03-2023 Medicare Annual Wellness (AWV) Medicare Annual Wellness (AWV) [facility] Start: 06-14-2023 End: 06-14-2023 Patient encounter procedure 06/14/2023 1:30 PM EDT Procedure Visit [facility] [address] [place] [phone] Arianna Lou DPM [address] [place], [place] [id number] [facility] Start: 06-09-2023 End: 06-09-2023 Patient encounter procedure 06/09/2023 1:00 PM EDT Office Visit [facility] [address] [place] [phone] Kenia Castillo, SCALLOP CUTTER MACHINE [address] [place] [address] [facility] Start: 04-17-2023 End: 04-17-2023 Patient encounter procedure 04/17/2023 1:30 PM EST Office Visit [facility] [address] [place] [address] Marina Redd, PA [address] [place] [address] [facility] Start: 04-13-2023 End: 04-13-2023 ambulatory 04/13/2023 1:00 PM EST Treatment [facility] [address] [place] [address] Yuliya Romero, PT [address] [place] [address] [facility] Start: 04-11-2023 End: 04-11-2023 ambulatory 04/11/2023 1:00 PM EST Treatment [facility] [address] [place] [address] Maddie Latham, FIRE RANGER [facility] Start: 04-06-2023 End: 04-06-2023 ambulatory 04/06/2023 2:00 PM EST Treatment [facility] [address] [place] [address] Maddie Latham, FIRE RANGER [facility] Start: 04-05-2023 End: 04-05-2023 ambulatory 04/05/2023 1:00 PM EST Treatment [facility] [address] [place] [address] Valerie Argueta, PT [facility] Start: 04-04-2023 End: 04-04-2023 ambulatory 04/04/2023 1:00 PM EST Treatment [facility] [address] [place] [address] Maddie Latham, FIRE RANGER [facility] Start: 03-30-2023 End: 03-30-2023 ambulatory 03/30/2023 2:00 PM EST Treatment [facility] [address] [place] [address] Maddie Latham FIRE RANGER [facility] Start: 03-28-2023 End: 03-28-2023 ambulatory 03/28/2023 1:30 PM EST Treatment [facility] [address] [place] [address] Maddie Latham, FIRE RANGER [facility] Start: 03-23-2023 End: 03-23-2023 ambulatory 03/23/2023 1:00 PM EST Evaluation [facility] [address] [facility] [address] [place] [phone] Yuliya Romero, PT [address] [place] [address] Left thigh pain; Muscle strain of left thigh, subsequent encounter [facility] Comment on above: Left thigh pain; Muscle strain of left thigh, subsequent encounter Start: 01-31-2023 Hemoglobin A1c measurement Diabetes: Hemoglobin A1C [facility] Start: 12-02-2022 Glaucoma screening Diabetes: Retinopathy Screening [facility] Start: 09-30-2021 End: 09-30-2021 Patient encounter procedure 09/30/2021 Office Visit Cardiology Ej Foster MD [address] [place] [address] [place] [address] [facility] Start: 03-10-2021 Creatinine measurement Creatinine monitoring [facility], Start: 03-10-2021 HbA1c (Bld) [Mass fraction] A1C test (Diabetic or Prediabetic) [facility], Start: 03-10-2021 Hemoglobin A1c measurement A1C test (Diabetic or Prediabetic) [facility] Work Phone: Start: 03-10-2021 Lipid panel Lipid screen [place], [place] Start: 03-10-2021 Potassium monitoring Potassium [place] Start: 01-21-2021 Creatinine measurement Creatinine monitoring [place], [place] Start: 01-21-2021 HbA1c (Bld) [Mass fraction] A1C test (Diabetic or Prediabetic) [place] Start: 01-21-2021 Potassium monitoring Potassium monitoring [place] Start: 10-14-2020 Influenza vaccination Flu vaccine (#1) [facility] Phone: Start: 09-16-2020 End: 09-16-2020 Office Visit 09/16/2020 Office Visit Cardiology Ej Foster MD [address] [place] [address] [facility] Start: 03-10-2020 End: 03-10-2020 Office Visit 03/10/2020 Office Visit Cardiology Ej Foster MD [address] [place] [address] [facility] Start: 02-21-2020 End: 02-21-2020 Office Visit 02/21/2020 Office Visit Cardiology Ej Foster MD [address] [place] [address] [facility] Start: 01-30-2020 End: 01-30-2020 Office Visit 01/30/2020 Office Visit Cardiology Ej Foster MD [address] [place] [address] [facility] Start: 12-11-2019 Annual Wellness Visit (AWV) Annual Wellness Visit (AWV) [place] Start: 10-15-2019 Influenza vaccination Flu vaccine (#1) [place] Start: 2013 Pneumococcal 65+ years Vaccine (1 of 1 - PPSV23) Pneumococcal 65+ years Vaccine (1 of 1 - PPSV23) [place] Start: 2013 Pneumococcal 65+ years Vaccine (2 of 2 - PPSV23) Pneumococcal 65+ years Vaccine (2 of 2 - PPSV23) [place] Start: 07-17-2012 Shingles Vaccine (2 of 3) Shingles Vaccine (2 of 3) [place] Start: 1998 Screening for malignant neoplasm of colon Colon cancer screen colonoscopy [place], [place] Start: 1998 Shingles Vaccine (1 of 2) Shingles Vaccine (1 of 2) [place] Start: 1993 Screening for malignant neoplasm of colon Colon cancer screen colonoscopy [facility] Work Phone: Start: 1988 Lipid panel Lipid screen [place] Start: 10-04-1967 DTaP/Tdap/Td vaccine (1 - Tdap) DTaP/Tdap/Td vaccine (1 - Tdap) [place] Start: 1966 Diabetic microalbuminuria test Diabetic microalbuminuria test [place] Start: 1958 Diabetic foot examination Diabetic foot exam [place], [place] Start: 1958 Diabetic retinal exam Diabetic retinal exam [place], [place] Start: 1958 Lipid panel Lipid screen [place], [place] Start: 1948 Creatinine measurement Creatinine monitoring [place], [place] Start: 1948 Hepatitis C screening Hepatitis C screen [place], [place] Start: 1948 Potassium monitoring Potassium monitoring [place], [place] Start: 1948 Screening for malignant neoplasm of colon [facility] End: 02-12-2020 Catheterization and angiography procedure details panel Diagnostic Cardiac Surgical Technology Instructor Procedure Cardiac Cath Routine One Time for 1 Occurrences starting 02/12/2020 until 02/12/2020 [place] Comment on above: One Time for 1 Occurrences starting 01/15 until 02/12/2020 Continuous pulse oximetry Pulse oximetry, continuous Respiratory Care Routine Every 4hr until discontinued starting 02/12/2020 [place] Comment on above: Every 4hr until discontinued starting End: 12-11-2019 Covid-19 Ambulatory Covid-19 Ambulatory Lab Routine Once for 1 Occurrences starting 12/11/2019 until 12/11/2019 [place] Comment on above: Once for 1 Occurrences starting 12/11/19 20 until 12/11/2019 Covid-19 Ambulatory Covid-19 Amb ulatory Lab Routine 12/11/2019 2:27 PM EDT [place] EKG 12 Lead EKG 12 Lead ECG Routine 02/12/2020 8:26 AM EST [place] End: 02-12-2020 End Tidal CO2 Continuous End Tidal CO2 Continuous Respiratory Care Routine Continuous until discontinued starting 02/12/2020 [place] Comment on above: Continuous until discontinued starting 1 End: 03-10-2020 HbA1c (Bld) [Mass fraction] Hemoglobin A1C Lab Routine Controlled type 2 diabetes mellitus with hyperglycemia, without long-term current use of insulin ([facility]) 1 Occurrences starting 03/10/2020 until 03/10/2020 [place] Comment on above: 1 Occurrences starting 03/10/2020 until 03/10/2020 HbA1c (Bld) [Mass fraction] Hemoglobin A1C Lab Routine Controlled type 2 diabetes mellitus with hyperglycemia, without long-term current use of insulin ([facility]) 03/10/2020 12:35 PM EST [place] Oxygen therapy [[facility] Data Set] Initiate Oxygen Therapy Protocol Respiratory Care Routine Daily until discontinued starting 02/12/2020 [place] Comment on above: Daily until discontinued starting 2019 End: 03-10-2020 VL LOWER EXTREMITY ARTERIAL SEGMENTAL PRESSURES W PPG VL LOWER EXTREMITY ARTERIAL SEGMENTAL PRESSURES W PPG Imaging STAT Pain in both lower extremities PVD (peripheral vascular disease) ([facility]) 1 Occurrences starting 03/10/2020 until 03/10/2020 [place] Comment on above: 1 Occurrences starting 03/10/2020 until 03/10/2020 VL LOWER EXTREMITY ARTERIAL SEGMENTAL PRESSURES W PPG VL LOWER EXTREMITY ARTERIAL SEGMENTAL PRESSURES W PPG Imaging STAT Pain in both lower extremities PVD (peripheral vascular disease) ([facility]) 03/10/2020 1:24 PM [facility] [place] Immunizations Immunization Date Immunization Notes Care Provider Solis atkinson 12-02-2022 pneumococcal polysaccharide vaccine, 23 valent Yuliya Romero PT Work Phone: [facility] 11-01-2022 influenza, high dose seasonal, preservative-free Yuliya Romero PT Work Phone: [facility] 11-01-2021 Influenza, Seasonal, Quadrivalent, Adjuvanted Yuliya Romero PT Work Phone: [facility] 11-01-2021 SARS-COV-2 (COVID-19 ) vaccine, mRNA, spike protein, LNP, bivalent, preservative free, 30 mcg/0.3 mL dose, mauro-sucrose formulation Yuliya Romero PT Work Phone: [facility] 11-01-2021 SARS-CoV-2, Unspecified Jamie Romero PT Work Phone: [facility] 10-30-2021 Influenza, High-dose Seasonal, Quadrivalent, Preservative Free Yuliya Romero PT Work Phone: [facility] 11-12-2020 Influenza, High-dose Seasonal, Quadrivalent, Preservative Free Yuliya Romero PT Work Phone: [facility] 11-11-2020 Influenza, High-dose Seasonal, Quadrivalent, Preservative Free Yuliya Romero PT Work Phone: [facility] 11-11-2020 Pfizer Purple Cap SARS-CoV-2 Vaccination Yuliya Romero PT Work Phone: [facility] 04-12-2020 Pfizer Purple Cap SARS-CoV-2 Vaccination Yuliya Romero PT Work Phone: [facility] 03-19-2020 Pfizer Purple Cap SARS-CoV-2 Vaccination Yuliya Romero PT Work Phone: [facility] 11-28-2019 influenza, injectabl e, quadrivalent, preservative free Yuliya Romero PT Work Phone: [facility] 11-28-2018 influenza, injectabl e, quadrivalent, preservative free Yuliya Romero PT Work Phone: [facility] 11-28-2018 tetanus toxoid, redu hiral diphtheria toxoid, and acellular pertussis vaccine, adsorbed Yuliyamiguel Romero PT Work Phone: [facility] 11-27-2018 influenza, high dose seasonal, preservative-free Yuliya Trisha PT Work Phone: [facility] 11-27-2017 influenza, high dose seasonal, preservative-free Yuliya Trisha PT Work Phone: [facility] 11-27-2017 Influenza, High-dose Seasonal, Quadrivalent, Preservative Free Yuliyaalberto Romero PT Work Phone: [facility] 11-22-2016 influenza, injectabl e, quadrivalent, contains preservative Yuliya Romero PT Work Phone: [facility] 11-22-2016 influenza, injectabl e, quadrivalent, preservative free Yuliya Romero PT Work Phone: [facility] 07-29-2015 pneumococcal conjuga te vaccine, 13 valent Yuliya Romero PT Work Phone: [facility] 01-21-2015 influenza, seasonal, injectable, preservative free Yuliya Trisha PT Work Phone: [facility] 12-11-2013 influenza, injectabl e, quadrivalent, preservative free Yuliya Maryton PT Work Phone: [facility] 03-13-2013 influenza, seasonal, injectable Yuliya Maryton PT Work Phone: [facility] 03-13-2013 influenza, seasonal, injectable, preservative free Yuliya Maryton PT Work Phone: [facility] 03-13-2013 pneumococcal polysaccharide vaccine, 23 valent Yuliya Romero PT Work Phone: [facility] 05-22-2012 zoster vaccine, live Yuliya Romero PT Work Phone: [facility] 02-02-2012 influenza, seasonal, injectable Yuliya Romero PT Work Phone: [facility] Healthcare Payers Date Payer Category Payer Self-pay 2023 Medicare [id number] 2023 Medicare [id number] aee [id number] 2023 Unknown [id number] 1959 Medicare [id number] 1959 Unknown [id number] 1948 Unknown [id number] 2.16.84 0.1.778494.3.579.2.593 1948 Unknown [id number] 2.16.8 40.1.021083.3.579.2.173 1948 Unknown [id number] 2.16.8 40.1.111282.3.579.2.1286 1948 Unknown [id number] 2.16.8 40.1.153624.3.579.2.1286 1948 Unknown [id number] 2.16.8 40.1.079606.3.579.2.1286 1948 Unknown [id number] 2.16.84 0.1.428622.3.579.2.1259 1948 Unknown [id number] 2.16.84 0.1.863456.3.579.2.1259 1948 Unknown [id number] 2.16.84 0.1.554225.3.579.2.1259 1948 Unknown [id number] 2.16.84 0.1.955151.3.579.2.1259 1948 Unknown [id number] 2.16.84 0.1.700337.3.579.2.1259 1948 Unknown [id number] 2.16.84 0.1.315182.3.579.2.1259 1948 Unknown [id number] 2.16.84 0.1.365324.3.579.2.1259 1948 Unknown [id number] 2.16.84 0.1.522849.3.579.2.1259 1948 Unknown [id number] 2.16.84 0.1.490659.3.579.2.1259 1948 Unknown [id number] 2.16.84 0.1.322227.3.579.2.1259 1948 Unknown [id number] 2.16.84 0.1.211250.3.579.2.1259 1948 Unknown [id number] 2.16.84 0.1.065871.3.579.2.1259 1948 Unknown [id number] 2.16.84 0.1.101890.3.579.2.1259 1948 Unknown [id number] 2.16.84 0.1.231316.3.579.2.1259 1948 Unknown [id number] 2.16.84 0.1.540614.3.579.2.1259 1948 Unknown [id number] 2.16.84 0.1.909717.3.579.2.1259 1948 Unknown [id number] 2.16.84 0.1.182043.3.579.2.1259 1948 Unknown [id number] 2.16.84 0.1.432080.3.579.2.1259 1948 Unknown [id number] 2.16.84 0.1.720685.3.579.2.1259 1948 Unknown [id number] 2.16. 840.1.461584.3.579.2.196 Unknown [id number] 2.16.8 40.1.614683.3.579.2.531 Social History Date Type Detail Facility Tobacco smoking stat us [facility] Unknown if ever smoked [place], [place] Start: 1950 Sex Assigned At Not on file [place] Start: 01-22-2020 End: 08-02-2022 Tobacco smoking status NHIS Never smoker [place] Start: 01-22-2020 End: 08-02-2022 Tobacco use and exposure Never used [place] Start: 03-10-2020 End: 03-14-2023 Alcohol intake Current drinker of alcohol (finding) [place] Start: 02-12-2020 Alcohol Comment having had sin ce December [place] Exposure to SARS-CoV -2 (event) Not sure [place] Start: 09-16-2020 End: 12-02-[address] [facility] Start: 12-02-2022 End: 03-14-2023 Tobacco use panel [facility] Start: 10-25-2022 Alcohol Comment drinks alcohol 2-3 times a week [facility] Start: 1950 Sex Assigned At Male F [facility] Clinical Notes 09-23-2020 to 03-30-2023 Telephone Encounter - Marjorie Thayer - 03/30/2023 1:17 PM ESTTelephone Encounter - Marjorie Thayer - 03/30/2023 1:17 PM ESTTelephone Encounter - Marjorie Thayer - 03/30/2023 12:51 PM EST Note Date & Type Note Facility 03-30-2023 Telephone encount er Note 04/05 @ 1:00 pm . [facility] 03-30-2023 Miscellaneous Notes Formattin g of this note might be different from the original. 04/05 @ 1:00 pm . So that reference # does nothing? His eval was 2/8, and is it noted per [facility] to continue, auth is needed? Would it be ok to schedule? documented in this encounter [facility] 03-30-2023 Telephone encount er Note So that reference # does nothing? His eval was 2/8, and is it noted per [facility] to continue, auth is needed? [facility] 03-30-2023 Telephone encount er Note Would it be ok to schedule? [facility] 03-29-2023 Telephone encount er Note Pt cx PT out. [facility] 03-29-2023 Miscellaneous Notes Formattin g of this note might be different from the original. Pt cx PT out. documented in this encounter [facility] 09-20-2021 Note [id number]#1.00[facility] 09-20-2021 Note [id number]#1.00[facility] 09-18-2021 Note Education Materials POST OPERATIVE TOTAL KNEE/HIP DISCHARGE INTRUCTIONS SURGEONS WRITTEN INSTRUCTIONS: Walk with walker; bear weight to tolerance on operative extremity Elevate extremity 1 hour 3 times/day to control pain and swelling and apply cyrocuff Range of motion to ankle 10 times/hour Range of motion to knee hourly Change dressing daily. Reapply silver dressing for next four days then discontinue Sole hose (compression stockings) for 6 weeks Physical therapy as prescribed May shower, no tub bath. Do not rub/scrub incision. Wash gently Take eliquis 2.5mg 2x daily to prevent blood clots, until seen in the office in two weeks . WHAT YOU SHOULD KNOW AFTER YOUR OPERATION: If you need pain pills, start before the pain becomes intense. Pain pills are frequently less upsetting to your stomach if you take them with food such as crackers or bread. If you have excessive or persistent pain, swelling, bleeding, nausea, vomiting or any other problems, you should first call your surgeon for advice. If you are unable to contact your surgeon, seek help from the emergency room. FOR THE PREVENTION OF DVT AFTER LOWER EXTREMITY SURGERY What is a DVT? There is always the risk of DVT after lower extremity surgery. DVT, or deep vein thrombosis, is a blood blot in a major vein that may partially or completely block the flow of blood. The clot occurs in the legs or pelvis, in areas where blood flow is slow, or in an injured blood vessel. DVT can be life-threatening should pieces of the clot break away and travel to the lungs. This is called pulmonary embolism What are the symptoms of DVT? The area affected by the blood clot may become swollen and painful, and possibly turn red as the normal flow of blood is blocked. You may also develop edema, which is the build up of fluid in the skin tissues surrounding the clot. If the clot is somewhere other than your leg, there may be no physical signs of DVT. If the clot breaks away and travels to your lungs, you may experience shortness of breath and chest pain. If this occurs you should call your doctor immediately or go to the emergency room. How can I prevent DVT? You should keep active. Moving the ankle and foot and bending the knee as tolerated when you are in bed and walking as tolerated. Take medication, especially the Aspirin, as prescribed by your doctor. What should I do if I think I have a DVT? You should call your doctor or go to the emergency room any time you have a sudden and unusual shortness of breath that is not related to exercise, exertion or anxiety. If you have swelling with redness and pain in your leg, you should call your doctor immediately. If there is concern then a test called ?Venous Doppler? can be done to rule of a DVT. #1 change dressing daily. You may shower starting 3 days after surgery. No scrubbing or rubbing incision during shower just let the water run over the incision #2 stop smoking and drinking alcohol #3 ice to operative knee 20 minutes every hour while awake until pain and swelling control. Keep head flat with knee straight and elevated above heart with a ramp of pillows until pain and swelling controlled #4 flex and extend both feet/ankles 10 times per hour while awake #5 push both knees backwards into the bed 10 times every hour while awake, clench buttock muscles together 10 times every hour while awake #6 use walker weight-bear as tolerated to operative knee. Get up every 2 hours while awake and walk around with walker for 1 to 2 minutes. #7 Flex and extend knee over the side of the bed 10?4 times a day #8 follow up in office with physician fire assistant Justo Redd as scheduled #9 [facility] will be contacting you within the next 24 hours to set up home therapy visits #11 You have been given a prescription for Percocet, Percocet is narcotic, narcotics are addictive. If you feel you have problems with addiction please feel free to contact Dr. Awad, your family physician, or proceed to the nearest hospital's emergency services department. [facility] 09-18-2021 Note [facility] Clinical Discharge Summary PERSON INFORMATION Name ZAINA WINTERS Age 70 Years 1950 Sex MALE Language [place] PCP Jeannine Hurley Marital Status Med Service Observation Acct# Arrival 09/17/2021 08:03:00 Visit Reason SURGERY-RIGHT TOTAL KNEE (GABRIELA) Acuity LOS 000 26:09 Address: [facility] [address] Comment: PROVIDER INFORMATION VITALS INFORMATION Vital Sign Triage Latest Temp Oral 36.7 DegC 36.8 DegC Temp Temporal Temp Intravascular Temp Axillary Temp Rectal 02 Sat 96 % 96 % Respiratory Rate 18 br/min 18 br/min Peripheral Pulse Rate 66 bpm 70 bpm Apical Heart Rate 80 bpm 80 bpm Blood Pressure 150 mmHg / 86 mmHg 139 mmHg / 84 mmHg Comment: MEDICAL INFORMATION Allergy Info: No Known Medication Allergies Medication List: Medications That Were Updated - Follow Below Instructions Other Medications Updated: apixaban (Eliquis 2.5 mg oral tablet) 1 tab(s) Oral 2 times a day. Refills: 0. Medications to Continue That Have Not Changed Printed Prescriptions acetaminophen-oxycodone (!-Percocet 5/325 oral tablet) 1 tab(s) Oral every 6 hours as needed for pain for 7 Days. Refills: 0. Other Medications allopurinol (allopurinol 100 mg oral tablet) 1 tab(s) Oral every day. ascorbic acid (Vitamin C 1000 mg oral tablet) 1 tab(s) Oral every day. ferrous sulfate (ferrous sulfate 325 mg (65 mg elemental iron) oral delayed release tablet) 1 tab(s) Oral every day. hydrochlorothiazide-losartan (hydrochlorothiazide-losartan 12.5 mg-50 mg oral tablet) 1 tab(s) Oral every day. metoprolol (Metoprolol Tartrate 25 mg oral tablet) 0.5 tab(s) Oral 2 times a day. multivitamin with minerals (Vitamin D with Minerals oral tablet) 1 tab(s) Oral every day. omeprazole (omeprazole 20 mg oral delayed release capsule) 1 cap(s) Oral every day. rOPINIRole (rOPINIRole 1 mg oral tablet) 1 tab(s) Oral every day. No Longer Take the Following Medications acetaminophen (acetaminophen 500 mg oral tablet) 2 tab(s) Oral Every 4 hours as needed for pain. Comment: Lab and Radiology Results Laboratory or Other Results This Visit (last charted value for your 09/17/2021 visit) Hematology 09/18/2021 5:19 AM Hct: 36.8 % -- Normal range between ( 34.8 and 51.9 ) Hgb: 11.9 gm/dL -- Normal range between ( 11.8 and 17.7 ) MCH: 30 pg -- Normal range between ( 24 and 34 ) MCHC: 32 gm/dL -- Normal range between ( 26 and 37 ) MCV: 94 fL -- Normal range between ( 81 and 100 ) MPV: 10.4 fL -- Normal range between ( 6.3 and 10.2 ) Platelet: 181 x103/mcL -- Normal range between ( 138 and 427 ) RBC: 3.92 x106/mcL -- Normal range between ( 3.70 and 5.30 ) RDW: 14.0 % -- Normal range between ( 11.5 and 15.0 ) WBC: 14.2 x103/mcL -- Normal range between ( 3.5 and 10.5 ) Auto Eos %: 0.0 % -- Normal range between ( 0.9 and 4.0 ) Auto Lymph %: 9 % -- Normal range between ( 14 and 48 ) Auto Neut %: 82 % -- Normal range between ( 44 and 88 ) Eos Abs#: 0.0 x103/mcL -- Normal range between ( 0.0 and 0.4 ) Lymph Abs#: 1.2 x103/mcL -- Normal range between ( 1.3 and 2.9 ) Isabela Abs#: 1.3 x103/mcL -- Normal range between ( 0.0 and 0.8 ) Auto Baso %: 0.0 % -- Normal range between ( 0.2 and 2.0 ) Auto Isabela %: 9 % -- Normal range between ( 1 and 12 ) Baso Abs#: 0.0 x103/mcL -- Normal range between ( 0.0 and 0.2 ) Neut Abs#: 11.6 x103/mcL -- Normal range between ( 1.5 and 9.2 ) Chemistry 09/18/2021 5:19 AM Chloride Level: 98 mmol/L -- Normal range between ( 101 and 111 ) CO2: 28 mmol/L -- Normal range between ( 21 and 32 ) Potassium Level: 3.8 mmol/L -- Normal range between ( 3.6 and 5.1 ) Sodium Level: 134.0 mmol/L -- Normal range between ( 136.0 and 144.0 ) Anion Gap: 12.0 mmol/L -- Normal range between ( 5.0 and 19.0 ) Diagnostic Radiology 09/17/2021 2:38 PM XR Knee One or Two Views Right: XR Knee One or Two Views Right Radiology Report 09/17/2021 4:07 PM Radiology Report: Radiology Report DIET & ACTIVITY Patient Activity Level: As Tolerated Patient Diet: Regular Patient Activity Restrictions: Discontinue Alcohol Use, No driving, No heavy lifting, Stop Smoking DISCHARGE INFORMATION Discharge Disposition: Discharge Location: DEPART REASON INCOMPLETE INFORMATION PATIENT EDUCATION INFORMATION Instructions: [place] Total Hip/Knee/DVT (Clinic) (CUSTOM) Follow up: With: Address: When: Marina Redd [address] [place] [address], [address] [place] [address] Business (1) 10/01/2021 11:00 AM DIAGNOSIS Acute pain of right knee Comment: PHYS DOC NOTES [facility] 03-04-2021 Note [id number]#[facility] Note [id number]#1.00[facility] 03-04-2021 Note [id number]#1.00[facility] 03-03-2021 Note Education Materials POST OPERATIVE TOTAL KNEE/HIP DISCHARGE INTRUCTIONS SURGEONS WRITTEN INSTRUCTIONS: Walk with walker; bear weight to tolerance on operative extremity Elevate extremity 1 hour 3 times/day to control pain and swelling and apply cyrocuff Range of motion to ankle 10 times/hour Range of motion to knee hourly Change dressing daily. Reapply silver dressing for next four days then discontinue Sole hose (compression stockings) for 6 weeks Physical therapy as prescribed May shower, no tub bath. Do not rub/scrub incision. Wash gently Take Eliquis 2.5 mg twice daily For 14 days after surgery and then on the 15th day switch back to your presurgical dosage of Eliquis WHAT YOU SHOULD KNOW AFTER YOUR OPERATION: If you need pain pills, start before the pain becomes intense. Pain pills are frequently less upsetting to your stomach if you take them with food such as crackers or bread. If you have excessive or persistent pain, swelling, bleeding, nausea, vomiting or any other problems, you should first call your surgeon for advice. If you are unable to contact your surgeon, seek help from the emergency room. FOR THE PREVENTION OF DVT AFTER LOWER EXTREMITY SURGERY What is a DVT? There is always the risk of DVT after lower extremity surgery. DVT, or deep vein thrombosis, is a blood blot in a major vein that may partially or completely block the flow of blood. The clot occurs in the legs or pelvis, in areas where blood flow is slow, or in an injured blood vessel. DVT can be life-threatening should pieces of the clot break away and travel to the lungs. This is called pulmonary embolism What are the symptoms of DVT? The area affected by the blood clot may become swollen and painful, and possibly turn red as the normal flow of blood is blocked. You may also develop edema, which is the build up of fluid in the skin tissues surrounding the clot. If the clot is somewhere other than your leg, there may be no physical signs of DVT. If the clot breaks away and travels to your lungs, you may experience shortness of breath and chest pain. If this occurs you should call your doctor immediately or go to the emergency room. How can I prevent DVT? You should keep active. Moving the ankle and foot and bending the knee as tolerated when you are in bed and walking as tolerated. Take medication, especially the Aspirin, as prescribed by your doctor. What should I do if I think I have a DVT? You should call your doctor or go to the emergency room any time you have a sudden and unusual shortness of breath that is not related to exercise, exertion or anxiety. If you have swelling with redness and pain in your leg, you should call your doctor immediately. If there is concern then a test called ?Venous Doppler? can be done to rule of a DVT. #1 change dressing daily. You may shower starting 3 days after surgery. No scrubbing or rubbing incision during shower just let the water run over the incision #2 stop smoking and drinking alcohol #3 ice to operative knee 20 minutes every hour while awake until pain and swelling control. Keep head flat with knee straight and elevated above heart with a ramp of pillows until pain and swelling controlled #4 flex and extend both feet/ankles 10 times per hour while awake #5 push both knees backwards into the bed 10 times every hour while awake, clench buttock muscles together 10 times every hour while awake #6 use walker weight-bear as tolerated to operative knee. Get up every 2 hours while awake and walk around with walker for 1 to 2 minutes. #7 Flex and extend knee over the side of the bed 10?4 times a day #8 follow up in office with physician assistant Justo Redd as scheduled #9 [facility] will be contacting you within the next 24 hours to set up home therapy visits #11 You have been given a prescription for Percocet, Percocet is narcotic, narcotics are addictive. If you feel you have problems with addiction please feel free to contact Dr. Awad, your family physician, or proceed to the nearest hospital's emergency services department. [facility] 03-03-2021 Note [facility] Clinical Discharge Summary PERSON INFORMATION Name ZAINA WINTERS Age 70 Years 1950 Sex MALE Language [place] PCP Tonja ERNANDEZ, Jeannine Alfonso Marital Status Med Service Observation Acct# Arrival 03/02/2021 05:52:00 Visit Reason SURGERY - LEFT TOTAL KNEE POSSIBLE STEMS AND AUGS - NEX GEN TIBIA Acuity LOS 000 26:57 Address: [address] [place] [id number] Comment: PROVIDER INFORMATION VITALS INFORMATION Vital Sign Triage Latest Temp Oral 36.3 DegC 36.5 DegC Temp Temporal Temp Intravascular Temp Axillary Temp Rectal 02 Sat 95 % 97 % Respiratory Rate 18 br/min 18 br/min Peripheral Pulse Rate 70 bpm 83 bpm Apical Heart Rate Blood Pressure 155 mmHg / 93 mmHg 162 mmHg / 83 mmHg Comment: MEDICAL INFORMATION Allergy Info: No Known Medication Allergies Medication List: New Medications Printed Prescriptions acetaminophen-oxycodone (Percocet 5 mg-325 mg oral tablet) 1 tab(s) Oral every 6 hours as needed as needed for pain. Refills: 0. Medications That Were Updated - Follow Below Instructions Printed Prescriptions Updated: apixaban (Eliquis 2.5 mg oral tablet) 1 tab(s) Oral 2 times a day. Refills: 0. Other Medications Updated: apixaban (Eliquis 5 mg oral tablet) 1 tab(s) Oral 2 times a day. Updated: metoprolol (Metoprolol Tartrate 25 mg oral tablet) 0.5 tab(s) Oral 2 times a day. Updated: multivitamin with minerals (Vitamin D with Minerals oral tablet) 1 tab(s) Oral every day. Updated: rOPINIRole (rOPINIRole 0.5 mg oral tablet) 1 tab(s) Oral every day. Medications to Continue That Have Not Changed Other Medications allopurinol (allopurinol 100 mg oral tablet) 1 tab(s) Oral every day. ascorbic acid (Vitamin C 1000 mg oral tablet) 1 tab(s) Oral every day. ferrous sulfate (ferrous sulfate 325 mg (65 mg elemental iron) oral delayed release tablet) 1 tab(s) Oral every day. hydrochlorothiazide-losartan (hydrochlorothiazide-losartan 12.5 mg-50 mg oral tablet) 1 tab(s) Oral every day. melatonin (melatonin 10 mg oral tablet) 1 tab(s) Oral once a day (at bedtime) as needed as needed for insomnia. omeprazole (omeprazole 20 mg oral delayed release capsule) 1 cap(s) Oral every day. Comment: Lab and Radiology Results Laboratory or Other Results This Visit (last charted value for your 03/02/2021 visit) Hematology 03/03/2021 4:47 AM Hct: 40.5 % -- Normal range between ( 34.8 and 51.9 ) Hgb: 12.8 gm/dL -- Normal range between ( 11.8 and 17.7 ) MCH: 30 pg -- Normal range between ( 24 and 34 ) MCHC: 32 gm/dL -- Normal range between ( 26 and 37 ) MCV: 96 fL -- Normal range between ( 81 and 100 ) MPV: 10.3 fL -- Normal range between ( 6.3 and 10.2 ) Platelet: 275 x103/mcL -- Normal range between ( 138 and 427 ) RBC: 4.24 x106/mcL -- Normal range between ( 3.70 and 5.30 ) RDW: 13.5 % -- Normal range between ( 11.5 and 15.0 ) WBC: 20.1 x103/mcL -- Normal range between ( 3.5 and 10.5 ) Auto Eos %: 0.0 % -- Normal range between ( 0.9 and 4.0 ) Auto Lymph %: 10 % -- Normal range between ( 14 and 48 ) Auto Neut %: 81 % -- Normal range between ( 44 and 88 ) Eos Abs#: 0.0 x103/mcL -- Normal range between ( 0.0 and 0.4 ) Lymph Abs#: 1.9 x103/mcL -- Normal range between ( 1.3 and 2.9 ) Isabela Abs#: 1.9 x103/mcL -- Normal range between ( 0.0 and 0.8 ) Auto Baso %: 0.0 % -- Normal range between ( 0.2 and 2.0 ) Auto Isabela %: 10 % -- Normal range between ( 1 and 12 ) Baso Abs#: 0.0 x103/mcL -- Normal range between ( 0.0 and 0.2 ) Neut Abs#: 16.2 x103/mcL -- Normal range between ( 1.5 and 9.2 ) Chemistry 03/03/2021 4:47 AM Chloride Level: 97 mmol/L -- Normal range between ( 101 and 111 ) CO2: 26 mmol/L -- Normal range between ( 21 and 32 ) Potassium Level: 3.9 mmol/L -- Normal range between ( 3.6 and 5.1 ) Sodium Level: 136.0 mmol/L -- Normal range between ( 136.0 and 144.0 ) Anion Gap: 17.0 mmol/L -- Normal range between ( 5.0 and 19.0 ) 03/02/2021 12:20 PM Glucose, POC: 177 mg/dL -- Normal range between ( 74 and 118 ) [facility] Order 03/03/2021 4:47 AM Tube Collected: Yes Diagnostic Radiology 03/02/2021 12:32 PM XR Knee One or Two Views Left: XR Knee One or Two Views Left Radiology Report 03/02/2021 1:56 PM Radiology Report: Radiology Report DIET & ACTIVITY Patient Activity Level: As Tolerated Patient Diet: Regular Patient Activity Restrictions: Discontinue Alcohol Use DISCHARGE INFORMATION Discharge Disposition: Discharge Location: [facility] REASON INCOMPLETE INFORMATION PATIENT EDUCATION INFORMATION Instructions: [place] Total Hip/Knee/DVT (Clinic) (CUSTOM) Follow up: With: Address: When: Marina Redd [address] [place] [address] Business (1) 03/15/2021 10:30 AM With: Address: When: Jeannine Evangelista [address] [place] [address] Business (1) DIAGNOSIS Aftercare following left knee joint rep (more content not included)... [facility] 09-23-2020 History of Presen t illness Narrative Instructed on policies and procedures. documented in this encounter [employer] Phone: Evaluation note Diagnosis Persistent atrial fibrillation (HCC) Atrial fibrillation SOB (shortness of breath) Shortness of breath Essential hypertension Unspecified essential hypertension Other specified diabetes mellitus with other specified complication, unspecified whether skilled nursing insulin use (HCC) Class 2 obesity with body mass index (BMI) of 36.0 to 36.9 in adult, unspecified obesity type, unspecified whether serious comorbidity present Pain in both lower extremities documented in this encounter [employer] Work Phone: evaluation note* Diagnosis Left thigh pain- Primary Pain in soft tissues of limb Muscle strain of left thigh, subsequent encounter documented in this encounter [facility] HealthcareEvaluation noteNo assessment information availableUniversity [facility]als Health System Work Phone: Reason for visit Narrative* Consultation (Routine) - Pending Review Specialty Diagnoses / Procedures Referred By Jamal hwang Referred To Contact Physical Therapy Diagnoses Left thigh pain Muscle strain of left thigh, subsequent encounter Procedures [place] OFFICE/OUTPATIENT NEW HIGH MDM 60 MINUTES Marina Redd PA [address] [place] [address] Yuliya Romero PT [address] [facility] [address] [place] [address] Referral ID Status Reason Start Date Expiration Date Visits Requested Visits Authorized [id number] Pending Review Consult and Treat 03/23/2023 03/09/2024 1 1 [facility] Healthcare Summary Purpose Family History No Family History Records FoundNo Family History Records FoundNo Family History Records FoundNo Family History Records FoundNo Family History Records FoundNo Family History Records FoundNo Family History Records FoundNo Family History Records Found Advance Directives No Advanced Directives Records FoundLatest Code Status on File Code Status Date Activated Date Inactivated Comments Full Code 02/12/2020 7:58 AM 02/12/2020 11:52 AM Latest Code Status on File Code Status Date Activated Date Inactivated Comments Full Code 02/12/2020 7:58 AM 02/12/2020 11:52 AM Latest Code Status on File Code Status Date Activated Date Inactivated Comments Full Code 02/12/2020 7:58 AM Advance Directive Response Recorded Date/ Time Advance Directives No May 04, 024 4:36pm Reason for Referral Status Reason Specialty Diagnoses / Procedures Referred By Contact Referred To Contact Closed Cardiology / Echocardiography Diagnoses Persistent atrial fibrillation (HCC) Essential hypertension SOB (shortness of breath) Fluid retention Other specified diabetes mellitus with other specified complication, unspecified whether skilled nursing insulin use (HCC) Class 2 obesity with body mass index (BMI) of 36.0 to 36.9 in adult, unspecified obesity type, unspecified whether serious comorbidity present Procedures ECHO Complete 2D W Doppler W Color Ej Foster MD [address] [place] [address] [place] [address] [facility] Echo [address] [place] [address] [place] [address] Status Reason Specialty Diagnoses / Procedures Referre d By Contact Referred To Contact Closed Radiology Diagnoses Pain in both lower extremities PVD (peripheral vascular disease) ([facility]) Procedures VL LOWER EXTREMITY ARTERIAL SEGMENTAL PRESSURES W PPG Ej Foster MD [address] [place] [address] [place] [address] Status Reason Specialty Diagnoses / Procedures Referre d By Contact Referred To Contact Closed Cardiology Diagnoses Persistent atrial fibrillation (HCC) SOB (shortness of breath) Essential hypertension Other specified diabetes mellitus with other specified complication, unspecified whether skilled nursing insulin use (HCC) Class 2 obesity with body mass index (BMI) of 36.0 to 36.9 in adult, unspecified obesity type, unspecified whether serious comorbidity present Pain in both lower extremities Procedures Echo 2D w doppler w color complete Ej Foster MD [address] [place] [address] [place] [address] History of Present Illness * Nini Todd - 01/22/2020 11:30 AM EST Explained policies and procedures of an echocardiogram/Doppler study. documented in this encounter* Arianna Allen RN - 02/12/2020 9:42 AM EST Dividing Machine Operator reviewed discharge instructions with patient and spouse. Both verbalized understanding. Denies questions. Copy of discharge instructions given to patient. documented in this encounter Assessments Diagnosis Persistent atrial fibrillation (HCC) Atrial fibrillation Essential hypertension Unspecified essential hypertension SOB (shortness of breath) Shortness of breath Fluid retention Other fluid overload Other specified diabetes mellitus with other specified complication, unspecified whether skilled nursing insulin use (HCC) Class 2 obesity with body mass index (BMI) of 36.0 to 36.9 in adult, unspecified obesity type, unspecified whether serious comorbidity present Diagnosis Persistent atrial fibrillation (HCC) Atrial fibrillation Essential hypertension Unspecified essential hypertension SOB (shortness of breath) Shortness of breath Fluid retention Other fluid overload Other specified diabetes mellitus with other specified complication, unspecified whether skilled nursing insulin use (HCC) Class 2 obesity with body mass index (BMI) of 36.0 to 36.9 in adult, unspecified obesity type, unspecified whether serious comorbidity present Diagnosis Controlled type 2 diabetes mellitus with hyperglycemia, without long-term current use of insulin (HCC) Persistent atrial fibrillation (HCC) Atrial fibrillation SOB (shortness of breath) Shortness of breath Essential hypertension Unspecified essential hypertension Other specified diabetes mellitus with other specified complication, unspecified whether terminal gauger insulin use (HCC) Class 2 obesity with body mass index (BMI) of 36.0 to 36.9 in adult, unspecified obesity type, unspecified whether serious comorbidity present COVID-19 Fluid retention Other fluid overload Pain in both lower extremities Diagnosis Pain in both lower extremities PVD (peripheral vascular disease) (HCC) Peripheral vascular disease, unspecified Discharge Instructions * Instructions* Arianna Allen RN - 02/12/2020 Electrical Cardioversion: What to Expect at Home Your Recovery Electrical cardioversion is a treatment for an abnormal heartbeat, such as atrial fibrillation, supraventricular tachycardia, or ventricular tachycardia (VT). It uses a brief electrical shock to reset your heart's rhythm. After cardioversion, you may have redness, like a sunburn, where the patches or paddles were. The medicines you got to make you sleepy may make you feel drowsy for the rest of the day. Your doctor may have you take medicines to help the heart beat normally and to prevent bloodclots. This care sheet gives you a general idea about how long it will take for you to recover. Follow thesteps below to feel better as quickly as possible. How can you care for yourself at home? Common side effects from sedation: You will feel sleepy. Rest until the sedation has worn off. Nausea and vomiting is common and usually does not last long. Don't do anything for 24 hours that requires attention to detail or until the effects of sedation completely wear off. Do not drive or operate any machinery until the medicine wears off and you can think clearly and react easily. Don't drink alcohol for 24 hours Medicines Be safe with medicines and take them as prescribed. Call your doctor if you think you are having a problem with your medicine. You may take one or more of the following medicines: Rate-control medicines to slow the heart rate. These include beta-blockers, calcium channel blockers, and digoxin. Rhythm control medicines that help the heart keep a normal rhythm. Blood thinners, also called anticoagulants, which help prevent blood clots. You will get more details on the specific medicines your doctor prescribes. Do not take any vitamins, fbij-anp-nondams medicines, or herbal products without talking to your doctor first. Exercise Start light exercise if your doctor says that it is okay. Walking is an easy way to get exercise. You should be able to talk while you are exercising. If you become short of breath or dizzy or havechest pain, sit down and rest right away. Check your pulse regularly. Place two fingers on the artery at the palm side of your wrist in line with your thumb. If your heartbeat seems uneven or fast, talk to your doctor. Other instructions Ask your doctor when you can drive again. Do not smoke. If you need help quitting, talk to your doctor. Limit alcohol. Follow-up care is a hoang part of your treatment and safety. Be sure to make and go to all appointments, and call your doctor if you are having problems. It's also a good idea to know your test resultsand keep a list of the medicines you take. When should you call for help? Call 911 anytime you think you may need emergency care. For example, call if: You have chest pain or pressure. This may occur with: Sweating. Shortness of breath. Nausea or vomiting. Pain that spreads from the chest to the neck, jaw, or one or both shoulders or arms. A fast or uneven pulse. After calling 911, the bag machine operator helper may tell you to chew 1 adult-strength or 2 to 4 low-dose aspirin. Wait for an ambulance. Do not try to drive yourself. You have signs of a stroke. These may include: Sudden numbness, paralysis, or weakness in your face, arm, or leg, especially on only one side of your body. New problems with walking or balance. Sudden vision changes. Drooling or slurred speech. New problems speaking or understanding simple statements, or feeling confused. A sudden, severe headache that is different from past headaches. You vomit blood or what looks like coffee grounds. You pass maroon or very bloody stools. You passed out (lost consciousness). Call your doctor now or seek immediate medical care if: You feel dizzy or lightheaded, or you feel like you may faint. Your heart rate becomes irregular. You have shortness of breath. You have any unusual bleeding, such as: Bruises or blood spots under the skin. A nosebleed that you cannot stop. Bleeding gums when you brush your teeth. Blood in your urine. Vaginal bleeding when you are not having your period, or heavy period bleeding. Your stools are black and tarlike or have streaks of blood. Watch closely for any changes in your health, and be sure to contact your doctor if: You do not get better as expected. Where can you learn more? Go to [email or web address] and sign in to your [employer] account. Enter A617 in the Search Health Information box to learn more about Electrical Cardioversion: What to Expect at Home. If you do not have an account, please click on the Sign Up Now link. [id number] [employer]. Care instructions adapted under license by [employer]. This care instruction is for use with your licensed healthcare professional. If you have questions about amedical condition or this instruction, always ask your healthcare professional. [employer] disclaims any warranty or liability for your use of this information. Content Version: 10.6.172780; Current as of: April 04, 2014 documented in this encounter Chief Complaint and Reason for Visit Chief Complaint M54.16 Additional Source Comments (unrecognized sect ion and content) No Status Records FoundNo Status Records FoundNo Status Records FoundNo Status Records FoundNo Status Records FoundNo Status Records FoundNo Status Records FoundNo Status Records Found INFORMATION SOURCE (unrecogn ized section and content) DATE CREATED AUTHOR 12/21/2019 [facility] DATE CREATED AUTHOR AUTHOR'S BRUCEIZ HEMANT 06/12/2021 [facility] DATE CREATED AUTHOR AUTHOR'S ORGANIZ ATION 10/25/2021 [facility] DATE CREATED AUTHOR AUTHOR'S ORGANIZ ATION 05/04/2022 [facility] DATE CREATED AUTHOR AUTHOR'S ORGANIZ ATION 05/27/2023 [facility] DATE CREATED AUTHOR AUTHOR'S ORGANIZ ATION 07/02/2023 [facility] DATE CREATED AUTHOR AUTHOR'S ORGANIZ ATION 07/21/2023 [facility] EPIC DATE CREATED AUTHOR AUTHOR'S ORGANIZ ATION 08/02/2023 [facility] Reason for Visit (unrecogniz ed section and content) Status Reason Specialty Diagnoses / Procedures Referred By Contact Referred To Contact Closed Cardiology / Echocardiography Diagnoses Persistent atrial fibrillation (HCC) Essential hypertension SOB (shortness of breath) Fluid retention Other specified diabetes mellitus with other specified complication, unspecified whether terminal gauger insulin use (HCC) Class 2 obesity with body mass index (BMI) of 36.0 to 36.9 in adult, unspecified obesity type, unspecified whether serious comorbidity present Procedures ECHO Complete 2D W Doppler W Color Ej Foster MD [address] [place] [address] [place] [address] [facility] Echo [address] [place] [address] Status Reason Specialty Diagnoses / Procedures Referre d By Contact Referred To Contact Closed Radiology Diagnoses Pain in both lower extremities PVD (peripheral vascular disease) (HCC) Procedures VL LOWER EXTREMITY ARTERIAL SEGMENTAL PRESSURES W PPG Ej Foster MD [address] [place] [address] [place] [address] Status Reason Specialty Diagnoses / Procedures Re ferred By Contact Referred To Contact Authorized Cardiology Diagnoses Essential hypertension Persistent atrial fibrillation (HCC) SOB (shortness of breath) Other specified diabetes mellitus with other specified complication, unspecified whether skilled nursing insulin use (HCC) COVID-19 Procedures Referral to Cardiac Cath [facility] ELECTIVE ARRHYTHMIA EXTERNAL Ej Foster MD [address] [place] [address] [place] [address] [place] [address] Status Reason Specialty Diagnoses / Procedures Referre d By Contact Referred To Contact Closed Cardiology Diagnoses Persistent atrial fibrillation (HCC) SOB (shortness of breath) Essential hypertension Other specified diabetes mellitus with other specified complication, unspecified whether skilled nursing insulin use (HCC) Class 2 obesity with body mass index (BMI) of 36.0 to 36.9 in adult, unspecified obesity type, unspecified whether serious comorbidity present Pain in both lower extremities Procedures Echo 2D w doppler w color complete Ej Foster MD [address] [place] [address] Reason Onset Date Comments re: PT today 03/28/2023 Called and noted auth is still pending for PT and in need to cx today; I informed I will keep up-to-date come his next on 03/30. Reason Onset Date Comments re: Insurance 03/29/2023 He called re: co verage w/ insurance noted pending and I gave update of no auth yet. I explained I have been checking multiple times a day and been informed of nothing recieved. He said he was speaking to friend and as of now [facility] and has ability to use TENS unit. I noted if there is a need to contact and he said he will most certainly do so. Reason Onset Date Comments re: [employer] for PT 03/30/2023 He called no ting he had just gotten verification per [employer] that if referring provider refers for therapy then PT would be covered. He gave a reference # [id number]. Care Teams (unrecognized sec tion and content) Slipman Relationship Specialty Start Date End Date Bernie Adam MD [address] [place] [address] PCP - ACO Reach 07/07/22 Bernie Adam MD [address] [place] [address] PCP - General Family Medicine 08/01/22 Slipman Relationship Specialty Start Date End Date Bernie Adam MD [address] [place] [address] PCP - ACO Reach 07/07/22 Bernie Adam MD [address] [place] [address] PCP - General Family Medicine 08/01/22 Slipman Relationship Specialty Start Date End Date Bernie Adam MD [address] [place] [address] PCP - ACO Reach 07/07/22 Bernie Adam MD [address] [place] [address] PCP - General Family Medicine 08/01/22 Slipman Relationship Specialty Start Date End Date Bernie Adam MD [address] [place] [address] PCP - ACO Reach 07/07/22 Bernie Adam MD [address] [place] [address] PCP - General Family Medicine 08/01/22 Slipman Relationship Specialty Start Date End Date Bernie Adam MD [address] [place] [address] PCP - ACO Reach 07/07/22 Bernie Adam MD [address] [place] [address] PCP - General Family Medicine 08/01/22 Team Status: Active Member Role Status Dates Jeannine Evangelista SCALLOP CUTTER MACHINE-C Primary Care Provider Activ e Team Status: Inactive Member Role Status Dates Marina Redd PA-C Attending Provider Active S tart: May 11, 2023 End: May 11, 2023 AWAIS Olsen Primary Care Provider Activ e Start: May 11, 2023 End: May 11, 2023 Team Status: Inactive Member Role Status Dates AWAIS Olsen Primary Care Provider Activ e Start: May 23, 2023 End: May 23, 2023 Marina Redd PA-C Attending Provider Active S tart: May 23, 2023 End: May 23, 2023 Goals (unrecognized section and content) Goals may be documented in a n alternate sectionGoals may be documented in an alternate section FOR RECORDS PERTAINING TO PATIENTS WHO ARE OR HAVE BEEN ENROLLED IN A CHEMICAL DEPENDENCY/SUBSTANCEABUSE PROGRAM, SOME INFORMATION MAY BE OMITTED. This clinical summary was aggregated from multiple sources. Caution should be exercised in using it in the provision of clinical care. This summary normalizes information from multiple sources, and as a consequence, information in this document may materially change the coding, format and clinical context of patient data. In addition, data may be omitted in some cases. CLINICAL DECISIONS SHOULD BE BASED ON THE PRIMARY CLINICAL RECORDS. [employer] provides no warranty or guarantee of the accuracy or completeness of information in this document.
--- NOTE | 2023-09-18 14:52 | P.CN_ITS ---
Consult Note: HPI Data of Consult Patient: known to practice within the last 3 years Consult date: 09/18/23 Requesting Physician: Ever Guillen MD Primary Care Provider: Non-Staff Physician, Consult Narrative Reason for consult: left leg pain Narrative: 72yom who presents for assessment. continues to have left leg pain and weakness. imaging reviewed, which is significant for left-sided foraminal stenosis at l4- 5, l5-s1. continues in a series of provider directed home exercises >6 weeks, without lasting relief. uses tylenol primarily. cannot take nsaids due to blood thinner. denies adverse med side effects. cc:: CC: Ever Guillen MD Review of Systems ROS Status of ROS 10 or more systems reviewed and unremark able except as noted in h istory and [facility] History (Updated 08/03/23 @ 13:35 by Kelley Richard NP) Diabetes ?E11.9 - Type 2 diabetes mellitus without complications (ICD-10) High cholesterol ?E78.00 - Pure hypercholesterolemia, unspecified (ICD-10) Atrial fibrillation, chronic ?I48.20 - Chronic atrial fibrillation, unspecified (ICD-10) HTN (hypertension) ?I10 - Essential (primary) hypertension (ICD-10) Surgical History History of knee surgery ?Z98.890 - Other specified postprocedural states (ICD-10) History of back surgery ?Z98.890 - Other specified postprocedural states (ICD-10) Meds Home Medications and Allergies Home Medications ?Medication ?Instructions ?Recorded ?Confirmed ?Type allopurinol 100 mg tablet 100 mg PO DAILY 06/22/23 07/24/23 History apixaban 5 mg tablet (Eliquis) 5 mg PO BID 06/22/23 07/24/23 History ascorbic acid (vitamin C) 500 mg 500 mg PO DAILY 06/22/23 07/24/23 History chewable tablet atorvastatin 10 mg tablet 10 mg PO DAILY 06/22/23 07/24/23 History cholecalciferol (vitamin D3) 25 1,000 unit PO DAILY 06/22/23 07/24/23 History mcg (1,000 unit) tablet (Vitamin D3) losartan 50 mg-hydrochlorothiazide 1 tab PO DAILY 06/22/23 07/24/23 History 12.5 mg tablet metformin 500 mg tablet 500 mg PO BID 06/22/23 07/24/23 History metoprolol tartrate 25 mg tablet 12.5 mg PO BID 06/22/23 07/24/23 History omeprazole 20 mg capsule,delayed 20 mg PO DAILY 06/22/23 07/24/23 History release ropinirole 1 mg tablet 1.5 mg PO DAILY 06/22/23 07/24/23 History tamsulosin 0.4 mg capsule 0.4 mg PO DAILY 06/22/23 07/24/23 History hydrocodone 5 mg-acetaminophen 325 1 tab PO BID PRN pain #60 tabs 06/28/23 07/24/23 Rx mg tablet hydrocodone 5 mg-acetaminophen 325 1 tab PO BID PRN pain #60 tabs 08/01/23 Rx mg tablet hydrocodone 5 mg-acetaminophen 325 1 tab PO BID PRN pain #60 tabs 08/02/23 Rx mg tablet Allergies Allergy/AdvReac Type Severity Reaction Status Date / Time No Known Drug Allergies Allergy Verified 07/24/23 11:41 Exam Narrative Exam Narrative: Psych-alert and oriented x 3. Attentive and appropriate, constitutionally normal, displays normal mood and affect per situation. There are no obvious deficits in memory, reasoning, or intellect.? Skin-no obvious rashes, bruising, erythema noted to the patient's area of pain.? Extremities- extremities are warm with minimal edema and palpable pulses. Lumbar-tenderness to palpation noted in the lumbar spine and paraspinal musculature. Pain is elicited with flexion, extension, and lateral rotation of the lumbar spine. Range of motion is diminished with these motions. Facet loading maneuvers are positive.? Strength-noted to be unremarkable with the exception of decreased strength rated at 4 out of 5 in left quadriceps femoris. Sensory-no notable sensory deficits in the bilateral lower extremities to touch or pinprick in all dermatomal distributions with the exception to decreased sensation to the left l4, 5 dermatomal distribution Coordination remains intact.? Gait remains non-antalgic. Assessment and Plan Assessment and Plan (1) Lumbar stenosis with neurogenic claudication: Plan 72yom who presents for assessment. failed conservative measures, as noted. imaging reviewed, as noted. given symptoms and imaging, prudent to attempt left l4-5, l5-s1 tfesi under fluoroscopic guidance. he is in agreement. meds reviewed, no changes. follow up after procedure.
== END 2023-09-18 14:20 | disposition home or self-care (01) ==
LOC: PM 14:20
PROVIDERS: Visit Provider Anesthesiology
DX: M48.062 Spinal stenosis, lumbar region with neurogenic claudication (principal)
CPT/HCPCS: G0463

== ENCOUNTER 2023-10-23 09:30 | Day surgery (SDC) | payer OTHER, SELFPAY ==
--- OUTSIDE RECORDS SUMMARY | 2023-10-23 09:45 | XMS_ITS | CCD ---
Author Organization [facility] Care Team Providers Care Sand System Operator Name Role Phone Unavailable Primary Care Provider Unavaileder e MISC, DOCTOR Primary Care Unavailable MATTEVI, ARMANDO Admitting Unavailable MATTEVI, ARMANDO Consulting Unavailable BIPIN ARMANDO Attending Unavailable Rupesh Ulrich Consulting Unavailable Jeannine Evangelista Primary Care Provider [phone] Tonja KIM - Jeannine CASH Primary Care P rovider EJ FOSTER Referring Unavailable JEANNINE EVANGELISTA Primary Care Unavailab Bernie Barrios MD Unavailable Bernie Adam MD Primary Care Provider EVANS Redd Attending Provider AWAIS Evangelista Primary Care Provider AWAIS Evangelista Primary Care Provider EVANS Redd Attending Provider [phone] Marina Redd Attending Unavailable Marina Redd Admitting Unavailable Jeannine Evangelista Primary Care Unavailable DAVID AWAD JR Attending UnavailDAVID Rahman JR Referring Unavailabl JEANNINE Gates Primary Care Unavailab DAVID Roman JR Attending UnavailDAVID Rahman JR Referring Unavailabl JEANNINE Gates Primary Care Unavailab cipriano Guillen MD, Ever Gonzalez Attending Unavailable Mindy SANTAMARIA, Ever Gonzalez Attending Unavailable ARIANNA LOU Attending Unavailable MARINA REDD Attending Unavailable MARINA REDD Referring Unavailable NAHUN, MARINA Naidu Attending Unavailable NAHUN, MARINA Naidu Referring Unavailable YULIYA ROMERO Attending Unavailable NAHUN, MARINA Naidu Referring Unavailable BLACKSLORIN, YULIYA Hwang Attending Unavailable KENIA CASTILLO Referring Unavailable HEATHER, YULIYA T Attending Unavailable MARINA REDD Referring Unavailable BLACKSLORIN, YULIYA T Attending Unavailable NAHUN, MARINA Naidu Referring Unavailable HEATHER, YULIYA Hwang Attending Unavailable NAHUN, MARINA Naidu Referring Unavailable BLACKSLORIN, YULIYA T Attending Unavailable MARINA REDD Referring Unavailable MARINA REDD Attending Unavailable MARINA REDD Referring Unavailable JR. MARIA GUADALUPE, DAVID Matthews Attending Unavailnaty CASTILLO, KENIA Attending Unavailable BOBBY PINK Attending Unavailable JR. MARIA GUADALUPE, DAVID Matthews Referring Unavaila jose g CASTILLO, KENIA Attending Unavailable ARIANNA LOU Attending Unavailable VERONICA, KENIA Attending Unavailable KENIA CASTILLO Attending Unavailable Medications Current Medications Medication Drug [...] mellitus with other specified complication, unspecified whether color coater insulin use (HCC) , Class 2 obesity [...] Active Start: 01-21-2020 take 1 capsule by mo uth once daily omeprazole (PRILOSEC) 20 MG delayed [...] mellitus with other specified complication, unspecified whether intermediate insulin use (HCC) , Class 2 obesity [...] 10-04-2022 10-04-2022 Chronic Other aftercare (1 source) [facility] (current) use of anticoagulants; 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: [[facility] (current) use of anticoagulants] Onset: 05-03-2022 Episodic [...] including parasitic (5 sources) Post-viral disorder; 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 [address] Color Coater: Anuj Palacio MD BUN/CRE Ratio 23 High 9-20 [facility] Comment on above: Performed By: #### C REMI, BMP #### [facility] [address] [place] [address] Color Coater: Anuj Palacio MD Calcium [Mass/Vol] 9.1 mg/dL Normal 8.6-10.4 [facility] Comment on above: Performed By: #### C REMI, BMP #### [facility] [address] [place] [address] Color Coater: Anuj Palacio MD Chloride [Moles/Vol] 102 mmol/L Normal 98-107 [facility] Comment on above: Performed By: #### C REMI, BMP #### [facility] [address] [place] [address] Color Coater: Anuj Palacio MD CO2 [Moles/Vol] 27 mmol/L Normal 20-31 [facility] Comment on above: Performed By: #### C BC, BMP #### [facility] [address] [place] [address] Color Coater: Anuj Palacio MD Creatinine [Mass/Vol] 0.78 mg/dL Normal 0.70-1.20 [facility] Comment on above: Performed By: #### C BC, BMP #### [facility] [address] [place] [address] Color Coater: Anuj Palacio MD GFR/1.73 sq M.predicted among non-blacks MDRD (S/P/Bld) [Vol rate/Area] mL/min/{1.73_m2} Normal >60 [facility] Comment on above: Result Comment: These results [...] renal tubular secretion. Performed By: #### C REMI, BMP #### [facility] [address] [place] [address] Color Coater: Anuj Palacio MD Glucose [Mass/Vol] 119 mg/dL High 70-99 [facility] Comment on above: Performed By: #### C REMI, BMP #### [facility] [address] [place] [address] Color Coater: Anuj Palacio MD Potassium [Moles/Vol] 3.9 mmol/L Normal 3.7-5.3 [facility] Comment on above: Performed By: #### C REMI, BMP #### [facility] [address] [place] [address] Color Coater: Anuj Palacio MD Sodium [Moles/Vol] 140 mmol/L Normal 135-144 [facility] Comment on above: Performed By: #### C BC, BMP #### [address] [place], [place] [id number] Color Coater: Anuj Palacio MD Urea nitrogen [Mass/Vol] 18 mg/dL Normal 8-23 [facility] Comment on above: Performed By: #### C BC, BMP #### [address] [place], [place] [id number] Color Coater: Anuj Palacio MD CBCon 05-03-2022 Erythrocyte distribution width (RBC) [Ratio] 13.5 % Normal 11.8-14.4 [facility] Comment on above: Performed By: #### C REMI, BMP #### [address] [place], [place] [id number] Color Coater: Anuj Palacio MD Hematocrit (Bld) [Volume fraction] 42.6 % Normal 40.7-50.3 [facility] Comment on above: Performed By: #### C BC, BMP #### [address] [place], [place] [address] Color Coater: Anuj Palacio MD Hemoglobin (Bld) [Mass/Vol] 13.6 g/dL Normal 13.0-17.0 [facility] Comment on above: Performed By: #### C BC, BMP #### [address] [place], [place] [id number] Color Coater: Anuj Palacio MD MCH (RBC) [Entitic mass] 29.6 pg Normal 25.2-33.5 [facility] Comment on above: Performed By: #### C BC, BMP #### [address] [place] [address] Color Coater: Anuj Palacio MD MCHC (RBC) [Mass/Vol] 31.9 g/dL Normal 28.4-34.8 [facility] Comment on above: Performed By: #### C BC, BMP #### [address] [place], [facility] Color Coater: Anuj Palacio MD MCV (RBC) [Entitic vol] 92.8 fL Normal 82.6-102.9 [facility] Comment on above: Performed By: #### C BC, BMP #### [address] [place], [facility] Color Coater: Anuj Palacio MD NRBC Automated 0.0 per 100 WBC Normal 0.0 [facility] Comment on above: Performed By: #### C REMI, BMP #### [address] [place], [facility] Color Coater: Anuj Palacio MD Platelet mean volume (Bld) [Entitic vol] 10.4 fL Normal 8.1-13.5 [facility] Comment on above: Performed By: #### C BC, BMP #### [address] [place], [facility] Color Coater: Anuj Palacio MD Platelets (Bld) [#/Vol] 182 10*3/uL Normal 138-453 [facility] Comment on above: Performed By: #### C REMI, BMP #### [address] [place], [facility] Color Coater: Anuj Palacio MD RBC (Bld) [#/Vol] 4.59 10*6/uL Normal 4.21-5.77 [facility] Comment on above: Performed By: #### C BC, BMP #### [address] [place] [address] Color Coater: Anuj Palacio MD WBC (Bld) [#/Vol] 6.0 10*3/uL Normal 3.5-11.3 [facility] Comment on above: Performed By: #### C BC, BMP #### [facility] [address] [place] [address] [place] [address] Color Coater: Anuj Palacio MD Coding Summaryon 10-25-2021 Coding Summary HTMLBase 64 MewnpjxvACu0yDg+PGhl YWQ+UF0AGSPcQ06eaFXe hW6LE2yDKG7CXVDVRRUC QJ8IJL9yyIG3DTzwG2Ei biAv KjkoaCZaOP60TLv6WSO5 dCsqQRjomM7ghJInP7n1 EeByET09jV19JLptVWPi ZuV4AkWqjbnwcXTw U8uoWsBqaNZjBks+PHRh YmxlIHdpZHRoPScxMDAl OsAmgWebSG2uJk0sSTVt LWNvbGxhcHNlOiBj f4mcLXLvZSamNT8qmZlu S7FsmTC2OKEqp1p4Xo22 dHI+ECHfDAC6aDriPWtg u194GrBzd5bkCEY4 yDKfYBjsTJG8S43sj3A3 YZItAKWxGTH4pBY8wA4q sBsajvrqN6BkfIScVkR2 YGI4jLSrtA8jbRla akekfQ6rNbv+A63PGA1Z NXNHVF8EOmq4O6QrQymh dHI+GB20IFXcLB83vNId kUIct7mdgCt6PjBp LZNgTPT1oJmlOUpga8Do HQKeI69rjGYff1I9CUBh nMgewZXvXoYnfJT6oT0u JLupzcybd6civcyu Wzfpa8weuw16fH96L99p VKfnNSQnNZQ6AKSeTKDn fPnyzy8vmB9aQg7+IDxj m4mmr3kagOm1HpMb HHSeyaRlqPmtVBA0z7Xq Mb30N8GjyTngt9AiJkh3 bo97bCMhx9Z3qTE8SDca SHZhdJ7pLKsrJsN8 JVHgVoBxqV47cVDjOUgp Yc4ynMvndYwoBU7zTRPp azzoPXHsfD0fMTYamBGq qUsrVB3gYSDxotce y125GjQbBBY5VQTcfKAa K2DwwJ6jKtAfDOKaULIp B6QxdUChUPlbQ260PPpm DrX9QTPkltZlC1Kc LQYinNstLnX7y3P8Ax2F d5IfjjhkRPC4QOdhHVR3 ZeIqLvViVuZ9Y2UlPcp9 HHLhnHmmWB1vI2In SXYsrysgabunrNF7VHHu WCUiaE84wKWlNYjlFp2h e3P2z744CRYmJYOehP36 Vg8pzPcbEHCzhMZP kK2nnkiav9iyeddwPbLs VXKcPQr5RVg6YOGxyFfy DjWiBUT2KeE4ULG7tLDp rH6paTwqduuvvD8c Oyc+X76zdG4rXFE8YYD9 yktfQBTmqjZsDO78NI34 D9QiYrpgpXYjcHM+PGRp rpJpzFaxDP2nVjRx f7agi5DiUFmaE8ToXSQd UGdjVpb2NTZrXPK0hUY4 yV0xTAIgXWftu5G9rGU3 R2LcbhIymy4xm4dx CNYtMRkpL22hfGLoo3Z7 FWMzhSD7VYZpcHvdKiEq hF95Akr+VEVmoIihp7Jf Pxlcw0bxn1fdbSj2 IjMwJSIgdmFsaWduPSJ0 d8VjOt29U25tDXozBNAg SHGdSLKoYAHduAgfkm0u sS6wDq7+PGNvbCB3 nZM9sJ9eKXZuKaY8LQhg S453EuRqcTKcWcouf8yl d4mzqCo7YoEyOFFlorLd uTdeZJM0u6UbLx34 O68nVUyiNGSeGAYdAZQm QPYkrKqgtr4zqT5gEe5+ GH7an5gzam23aI40kIG+ WTAvJSA7hZbjXSvg IBAuhI9wTKqbUyL1ADDm TcQlwO31cNTpEUpjDv9h xNftuPfsPX0xGJGfazad d211WuRcz6hqWOGl vKQyAHrpSLP4Q93fp7E8 IKSpOGReJQI0lIN8qA0c bGlnbjogbGVmdDsgdmVy dFruOGjnZVksL047 IHRvcDsnPlBhdGllbnQg KcIzIMx0Z9XpPnj4IKMt cZedMV7ikRGwDLzoLu6d pNjnsPnpMV1yLSMc jtrle073ZgOjl0vwCXWa gFPkVKxlNWJ2V09jj6D5 PJMnXNLdXNB6dQH4lJ1a bGlnbjogbGVmdDsg psYykBofYPomWGjqS545 IHRvcDsnPkJpcnRoIERh yJP1MQ65XJ98rMJwn2W1 mUC7Q8QnOSWysvwa gnnmyAP7SEDbUCEnwM19 Oe1zoDekRf7tGLBvJCJ0 VGOrmWZpC7ZrxE6fGcEc XIElPDMhO4YjnVIx MTbeL454MGjhChK2UEVm dtVyK8GmXLKeeKgjLxE1 i1E9Yp6CP5T6FB67NS43 oLHxd2L9bNK1B0Fq BSIiewfosokhrNP7JGWl XGLzhR20Dy2oaCwcPj9h SHOeNOC2SYLkuBKvV6Jd yK2aWdVsINNrLPFl N0EvaTOiJQqyE220PKkp HmG8DKYjrnGzC5NmDPAr mIfvOvJ9f7H3Hd1ULWm2 DX55PD87rYXid7Y6 nSD9J9DkVLWaiorbtucp bKD2WRFmVAVghT66Ac9u wRlsSa5rEZKyJMW8GYCr aUQiP3HptZ9vZuMn OVCzFTAtQ9PiuSGlVJxo X680GPyuSeL1OVFoooWn T7XtMPFuvHfeFfH5u4V3 Qv8MVSZiRV79JCN8 dNL3MA91IK85K4VfAnjx dGFibGU+PHRhYmxlIHdp ZHRoPScxMDAlJyBzdHls OF5rZm4rRYPdREBx sEphaGDfArZhf1xvPNCm JKkyFR0ceCjhN4RkdJB4 RQGtw8y2Xy75H06gD7Ho dXA+ZBJdgNV5hHF5 nO8oLdOrNtS7EYskD863 VrKhcKRnYngyi6ojy6sr qEk7StE9WYTwvzWeoDbi VQM2h7BrPl94Y63z IHdpZHRoPSIxNSUiIHZh kIvimy5iiN7dBw8+PGNv mQQ7fRR8aC0pDgYaUnZ1 TChgM303MzJufYCk Kqvhk9jsp1ygzJm3NvPw MUPjdqDbvNhtHFP0n6Qe Gh18C3IqeLmdx1LfYkq8 nj96lWXmk2Z1yAJ7 Q7NeGAMnemjrkVNqkCcl CK4oFEWkibdiDCZvlQ2u AKGtN9n4LnXwHbK6NFfc Z6SafmQ8LCMqjDDu XLjnHAE2E35xk6B7LHUb OWFrZPG7rIS9bB5kvHoh bjogbGVmdDsgdmVydGlj FVurJWjlO979MEJr lZqhAAKpiQ9xSKQwxDVo sAuyWU6jGOUelltsXxyY QkVSTElORywgTEFXUkVO G3YzICohmLB+PHRk UGZ3qAwfWEwpSVFbcG1b OIXdZ6i9EoHlQcY5IYxi K7OwDDUvnszbRv48zV4c LjUbOjD7CLaoE6Oi ibG2NQAkbWYyRLugZPX8 S76ux9L1HHHvWUFzJMK2 lAS0hI6dfFqqfnaxtPCf dDsgdmVydGljYWwt FMlgR244PNJfoLnzNaK7 OuBzPvI6QSd1Q5GhZkc2 QAHmwUuyCX7fmUCrFMdn Hs3kmRifkJseYX3s BWFzbqalJLIkaM4rJQVr nAWikIfiEP0cAZNjardb d311VxCyAOR1QCKljLAl T3EgdI5hIcDzXKBy XOToO2AdgYQmANylV406 OXmpGaL1JCPzvfNmH7Jl KRErdJokQuZ5k8J1Am42 MyBZZWFyczwvdGQ+ CWSvBLE1dIdlHTwiTCOe xR2vCFGzY1s6CkWcNkW8 QKceA9XoCLHzrkfaRi22 zW1bRoGqYfL5EJyo J7ImhrR8DQGplLQzJRmx LMV5Z76un7F9HCYnPPQm ODQ8fWD6oT6xqGflhavw bGVmdDsgdmVydGlj IAflNTnlV459BOXiyHkl Lj6LZFN1W7BvPaw3WNAo pHnwMA9qwTCtLLgqHm4l dXjunHvgTI5kXDUi chxsCYDhmH2tMHZkcPAd sIgyYU0lDVHvojhmy506 RwRcHNK9JODckAEoT9Zr iH8zXeJhODQhTKFh O4QwdXFiRVumB361NAnn PcI4TIJgdqMtJ7KxRIWk vYjjOzU2p2U7Pg0LFGpx dGQ+ZA26ko34U0Yr OxzxOkb7VUJeSWF1jUO3 jZ0rOGImXOvar9U6pEF4 D7WvezYmbm1fn0jeUKSv LEinG92xbKVmp0B7 ULGswHD5ECXtmLuvYhLs gV93Rbk+AOPdfRism3Aa Yuhkw2bql2vniXt8WwFc JSIgdmFsaWduPSJ0 k6KdGa74K72cYNibEMWk LATuIXFtBPBqrFujzr6c wP5dQm2+BVEfmXE5eXV9 dH2uZhWmIhL2CAce J493QmNgbXKdFqefi0wi q7pzlWo8MqAcNXXedhEg rPocYOD2q9FfJa72G8Qr yZquk8GkCii5ur08 dXDjq5L5uBS0F4UbWDSt szpnfOZieFmkWR7lANIb icrdMZCulL5wLZAaH0k4 KtWiWxP9ZCrtF8Oo krC2MXJgmJGvFXZylKHT bT9smtqla5mvtdniYmJk GEYoDVi7QEy6HLIeiQvi RfFtTYZ6MkB7ZKB6 sZDfzR0vlUirriqecR7e Oyc+RLc1i5pccKXpST0f bRH2ZV19LH17cYWfg1Q6 zMW6G5XqFNYasmew ntetaHO3UHTtBYYnpJ11 Sy8okMfjYp0eBQJcCZY8 PPJbuAUsM4VjrB5dArNk NLVcDROdE4RdwIPt MFvbX981YCvuRhH0WYXs ejEkQ1EiJZSfmXbhJqG0 f8N5Ay0UKG46UU81EV03 mRRux3V1xPD4S9Lw EXYenheixomcwZD7AAXi HEMkwM78Un2sjNxzGl1f NMAdUBE7YKNdqSZpZ1Cl rU1gDdSaHUIuUDSg C1NjnJTxRGrdZ807WIdl PnT3ZNYcbvNgF4SsVNIl fGnmYfF0e6R8Kg8HQb46 LR17MO69eAUku0P2 mXT3M7PkRJIpcdcorptz pZF7HMPeXFAxwN47Fp9o eAsqAw0mOWUyGIU8HFPk sZKeO3RonJ9xPkHm CSIaPCVfE0GqfJTaXEpc R933XSyqYsO8TUDzhxVg I5LpAUDyhZcwNaI1k0B3 Hy1JIQhvkns9M5Tk PjwvdHI+TG86DVMyFB60 rKRoiLRzv4obsYw1TuHp JSIdBNJ3aQzqNGrux5Mg TLChB44vjFWdx8O9 IGN (more content not included)... [facility] Coding Summaryon 10-04-2021 Coding Summary HTMLBase 64 VzzvrfgaSDz0lJe+PGhl YWQ+EF2QOIZpL54qiONd yI4YK0rRGH1ZMOTQFLRP YP3VCB9dfQT2TLqeE1Fd biAv WkutuFDqES60JAd2EOX9 dRvfXWaksU9xxRFoW2e1 TqEtPE78iW91TZeuYPUa MhG1NgJqyqvtyVJm E6cmDmEebMEkKao+PHRh YmxlIHdpZHRoPScxMDAl XiDhcDceRJ0aPj1cIPKo LWNvbGxhcHNlOiBj x9vnZEZpSEmtXR5sfUom P4VqhKH8BQGnr2f9Ya26 dHI+WKWwZIG7lTplIZuh k819UkVjg5mrBDQ1 jJJjQTzlUQU8D89wz7L5 ZAOjEJRnVIT6qOX7dU1k qVrpzwnqZ2WipXRsYiM7 HQV2bYDtuC8hlMki ehasfG7kVfc+A88GYC8A QPXBIU9CBhn2P7UeFktl dHI+KK63VCDlXA89fWMx uBUhy8xgtPi2QqAn SMMaJHR3xOfxORyog4Fe TOKpI31mbUGyj1A2KOAu mGigaATsFhZrcYL9pG2t WXhfvsqvt1jymanq Umgzq4ikvd78pN32C14g XVklTFTqHOO5EZStGOIc cLwqfi8dnQ0lXd8+IDxj t7yqm6xqhFt9OfAv CFIobxIudEvlJEK8t2Eh Ph23Q3MdoRaxv6NzDaw2 fg08kFJeu5A6sUE1ZUay ZMGfcO2bYDfcKlW7 MUInEbWgvZ09pZPpLYqh Oz3reIebdCxbAM5pEUFt vsbkWNGitX1hQCAsdOEu wJjvFT5kOKSdgzbf t615QhZlTNL4JRTrqKLs X8FanD4bCaSwNGQiCLPh L0DjiIEcRPjuD930PLim YrQ5ZBMlclXnB5Sm NOXjbPrvAsV0u9U8Dn7V h8DgvojbSZW9OKaaLKQ8 AoIoFdNqZiB9S9IiZdj8 JCTxcLrbSS4mX8Dg BEYnlwcbdtixzUF1SWNk OORmwQ52sCOvRNecVe6c h2S2z875DKAhNAEsfI65 Mt9saIlrTEJhlQPS dW6jbthar7fbugtrCvQs GCLzMAw9SFk4LHSlpHwq IsDyFYI7CpW6TDX1bTRh cO3rrAquxiedkD6t Oyc+H70xbH5yXSA7PGC7 xvhrLYXqbaDuFF72GT09 J6WhGryezYPcnEW+PGRp vsTvaHnnAZ7eSvKu k7bql5PeULdlX9CcEHHc UDhjQws9WRIjYYY9rEV8 dT8iNDUnAVapk1J2eIJ2 I4NghuHson1om1hs PZNyWFjtX03brZRjb9J8 SHHvvMM5NADtjMaoHnRw uK23Pog+YONvaChpt0Ia Gybyc4fki8gluEi8 IjMwJSIgdmFsaWduPSJ0 d5YwQj88B63iJRkfLFLd MTNgGRBaIKYbvPylih9d wX8zMd6+PGNvbCB3 sOL4oH6eAFYzNaL4AElh N782ZrMduOAbAwqnf4pi k6ronPj8QdTnELAdljZs zLsuSMT4j1KpEl52 B74hUBkdGGBeUMRtEYVu PBJgvKmywr8qzN5yHl2+ PH1rd2lkob50gY17vWA+ ENPcMES5eRjtYSve EIGtnC3iAPkcXhR0XPYq PrYmnI51bGPrTNeeQv4m aCiijXsvID1kIVAbktwn i296GhNka4jyWFCj hHWxOCtqDAW7H24zb9Z4 SKCdAYLkZBU6eVO7aZ0m bGlnbjogbGVmdDsgdmVy dUooGLxiFIyrB504 IHRvcDsnPlBhdGllbnQg BzMrCCo3F8NnMpx0IXGc dKweVX2ovAQjIWtfQy5e dXrhkTerTG9cIBJi oyboy659AaYfc2bfJFLm xXPpYQpnRQS9F94bt4A5 HXSxRUIoHAY6uAE6gQ2b bGlnbjogbGVmdDsg zxZfvGukPYmhMJjmK353 IHRvcDsnPkJpcnRoIERh aEO4HD94ZF07oGFll8X6 pPE5Y3KkFDMxgohj slonfGP5DPYpIBUlrO92 Aq9xoHbrUo3pXKBlVQH2 DGNedSTnU3CcwB1nEzIn LJJqAYZjE0EpkRBg GMwhT505OYrbFyL1GYYj svAsU4OnPVAhiQnlFeA0 v5L8Bx3GW7K6VG90DL25 oQZnm5I3xSL5C3Fp GWDjczpjvnqikUB3ZBFt UFOiyF17As1aiNmdUt5d HJPcMVR4BOAovRDuZ4He qG3cLqNoMCGeUKFo U9QxeBFrMLqeT846XIwc YuS7WNKeffTcT9IhBWSq yMqmAuA2f5A0Yc6LYPm9 WV02RD06kTMcl9R9 pXD3H2EeIDJaizfpehuu aGM8ADItKZQlyO86Lj6q cNfcIu2lCLVrWFQ6EJLb cUPzV3FacU4nNiEv AWKdUJIgJ3CqyUNnSJij V377CVflVhV6KLLkmeNd Z7SnTIBabEzkLmN4a9S2 Uk0AZJNrEH88BZD5 fIG2FS61FB54J0XeBtqx dGFibGU+PHRhYmxlIHdp ZHRoPScxMDAlJyBzdHls ZP3sYy9wHDHtAATz nIpgpMRjAhHwd4twUOKp QWymVU3lrOdbZ2SlaII3 ZBRlg0p3Ap44C43hS1Va dXA+ZIXdpXW4zRW6 yD2oFeVpKdJ2BVtjF697 PwXnuPUlRsvlz5xzx6jx jRr3KtX8HCYxpiNelYyb UKX9d9RhVl12Y80e IHdpZHRoPSIxNSUiIHZh zAfzma1slJ9bKz9+PGNv mMC8aGA4pW5zUuRkHhE7 DWnhH804FfNftOSl Jcgcf5ndx5mwfGi8JuJv PLWucaMgsKdvVSX8y2Ug Gl13X6OcaUbdo6RkVyp2 bl75bUDqr2W2fPS7 S8HvWHEsszsozTJgrXvy HP7eYWUjapkfKAQgiK5r YVMiX0x1FtFuAxL4YCbn X1EejxP4RATluMWb QUjjZVP9K06hi0K1MGCx DHMbHHY9yXV9aR8wkDfa bjogbGVmdDsgdmVydGlj HEbpPVrzU512MAWy jBesBCJhlF1lYGChjLRj bObmTE7mZLKpksqzLqnL QkVSTElORywgTEFXUkVO Z8KsXPqwfBT+PHRk EYE1rGvfSJhzEKTihQ8g KXHvX3o7OdDfWhD4EXll X2AyIAAaengfQj83pZ7r PjNlOzE6MBhjU1Zx huN3MLLjhVTaBQsmAYK4 P05kn8R0CZEbODEsQAL2 hKQ1cN2wdTjquycmzHXw dDsgdmVydGljYWwt EXqjM891VQHziAumNkN7 ImVxXmA6GHu0M6XeWvc1 NKPntDtfTR4pgEYvWMep Eg7gsVagfEexPX5m TPShrbroSIFdhH1hFVKz pPXqvSozWH4wNITzlnhc t451FvXbZQE4IIEvbEUg X3ZgnE3bQaFvJVFf NZYyK1IqrILnLSraN643 OTdtYcO9MFUrfnAgO9Oh PIVmoBbjRjW0p2F2Mn23 MyBZZWFyczwvdGQ+ ROVwBJE1rFjkVQcbJLUp lI7aUOJhF4i7IjRmEkZ8 ZPyrA2NyFNRdcdhfFe76 kQ7cReBiXtD4LZlj O7CcphE6BUGtcCSmBRhb PXK2Y79pb5U1JZDyYXLe WPX6rQM9iU0rmYrpbauk bGVmdDsgdmVydGlj DTxaOIaqK203KCGakFks Jf2MVNT5E7NhKuj2HDUt sEiaHU4faCDkEWphZv0d xFoilTucDU6qQARq crvjSEUkkC9xYZTixZEm xYbgVC2lDIYldehbp618 LcTnSOO0JDPmpCXmI9Oc vF9yGpKdXDYcNVNf I5CetVMmRSecO552EPpy CvA6JDBvcfEvT7VyYTNk vMzvZeW2c0H7Fh3ZDgTr cnZhdGlvbjwvdGQ+ NN16om07D5OjKctpFgd6 FVYpLHQ4wYD4jF2uBQSy XJexa0Q5bRO9T2SivkLz je1uu6xbSYVeCUiz B31reNFdo6C3UWWnoEW3 OIGedOlvJuVreL78Ita+ OKQawPbqg9GfWgbli1qx q9jfeOf5GsLzHUXk xeKdkIrmGNX9y5ZxFo43 D77zPYzgYLNsTMLpBPUy GPLdjJflxi0ncV2aHr3+ WCMydVZ3uND8nM7r EyZgEtB9TKkvW700JmKp mEFmVzajf5tgr9mpnGe5 IjIwJSIgdmFsaWduPSJ0 e2PyJs39R1EjvBti r1WdVmd8ix45nOUfk5O4 lML1Y1GrPZYahfknqNSt aMvfIQ6rTBQgepiiNTDh yG4oHCMtW9s0FvUs QtY6GVonU8XyvqD6UPQq eAXkQBNmsJUYwB9jhgst c4qavelkRqWpAQOvYWx7 SNi4EUPowYgxNcQx EEC4AmH9TYG6iBKwiH5j dNrryyyaeR9dGuc+UGh5 v1jtdOBaXO0roPY6KU12 CJ30pCQuh8Q3hOZ9 R6AaUVXulbzhuaqjbNT8 FAUcDQUeqY61Xt2txNkw Ed1lMBZoOJB1VKOcnUQw K8AgrJ1aCwCrLYXn GUGhL1OhsLSkDIbhB437 YXvpAwW6COWdwgEwM0Gu DHVbhZddSwL0n2S7Tz7T HL82JU26VI27vRJd p3I2pMZ9Q9LkGPOpqbql zugsmBS5BGCpSCOinT33 Zw9emIwgWp9sFNQpPZA9 NCHatONvY1PfqU2b ZqErUDGkBWSgX8VfaLGo NQihI424PUfeDlJ3NCDq weZmX3TxFYEybLzaKqH5 m5Q7Kp7EGc25JQ54 XB14dUJjx3J7jBW6E6Xn OCPsiwtghamlmNC2XPXx DZYggL87Gu2tfFvlOq7d WZZkMFG1JYKoyFQg M7RbvU6iFeGtQDJjVYPr E4FecRApJUolR125UFxd UtX4CPMtcgNlV5TrLIZf dTqoQlM9w2E3Kw5V MAmiqrf2U6PbNjkwcWL+ JO34TYCdVY05oNXkyLBc v4hbhZo8BnUuBCSaSEB1 sDkpEPlfq5MeVJXo Y29 (more content not included)... [facility] Consent Formson 09-23-2021 Consent Forms [id number] [facility]-20-2021 Consent Forms [id number] [facility] MAGR Postoperative Recordon 09-20-2021 MAGR Postoperative Record MAGR Phase II Record Summary Primary Physician: DAVID AWAD DO Finalized Date/Time: 09/20/21 10:05:40 Pt. Name: ZAINA WINTERS/Sex: 1950 MALE Med Rec #: [id number] Physician: DAVID AWAD DO Financial #: [id number] Pt. Type: O Room/Bed: [facility]/1 Admit/Disch: 09/17/21 08:03:00 - 09/18/21 12:10:00 [...] Signed By: Vianca Celaya RN 09/20/21 10:05 [facility] Outside Recordson 09-20-2021 Outside Records [id number] [facility] Orderson [facility]-20-2021 Provider Orders [id number] #[facility] Orders [id number] #[facility] Telemetry Stripson Telemetry Strips [id number] #[facility] Electronic Messagingon 09-19 Electronic Messaging --- --- --- --- --- --- --- --- --- From: Ej ([id number]), Ej To: ZAINA WINTERS Sent: 09/19/21 04:18:10 AM EDT Subject: Discharge Summary Ready to View A summary regarding your recent visit is available in the Documents section of your Health Record. [facility] .Auto Diff 1on 09-18-2021 Auto [place] % 9 % Normal 02-24 [facility] Comment on above: Performed By: #### 1 [id number], [id number], [id number] #### [facility] (DEFAULT) [address] [place] [address] Baso Abs# 0.0 x10 Normal 0.0-0.2 [facility] Comment on above: Performed By: #### 1 [id number], [id number], [id number] #### [facility] (DEFAULT) [address] [place] [address]77 Basophils/100 WBC (Bld) 0.0 % Low 0.2-2.0 [facility] Comment on above: Performed By: #### 1 [id number], [id number], [id number] #### [facility] (DEFAULT) [address] [place] [address] 25842 Eos Abs# 0.0 x10 Normal 0.0-0.4 [facility] Comment on above: Performed By: #### 1 [id number], [id number], [id number] #### [facility] (DEFAULT) [address] [place] [address] 20239 Eosinophils/100 WBC (Bld) 0.0 % Low 0.9-4.0 [facility] Comment on above: Performed By: #### 1 [id number], [id number], [id number] #### [facility] (DEFAULT) [address] [place] [address] 43425 Lymph Abs# 1.2 x10 Low 1.3-2.9 [facility] Comment on above: Performed By: #### 1 [id number], [id number], [id number] #### [facility] (DEFAULT) [address] [place] [address] 68574 Lymphocytes/100 WBC (Bld) 9 % Low 14-48 [facility] Comment on above: Performed By: #### 1 [id number], [id number], [id number] #### [facility] (DEFAULT) [address] [place] [address] [place] Abs# 1.3 x10 High 0.0-0.8 [facility] Comment on above: Performed By: #### 1 [id number], [id number], [id number] #### [facility] (DEFAULT) [address] [place] [address] 22537 Neut Abs# 11.6 x10 High 1.5-9.2 [facility] Comment on above: Performed By: #### 1 [id number], [id number], [id number] #### [facility] (DEFAULT) [address] [place] [address] Neutrophils/100 WBC (Bld) 82 % Normal 44-88 [facility] Comment on above: Performed By: #### 1 [id number], [id number], [id number] #### [facility] (DEFAULT) [address] [place] [address] CBC w/ Auto Diffon 2 Erythrocyte distribution width (RBC) [Ratio] 14.0 % Normal 11.5-15.0 [facility] Comment on above: Performed By: #### 1 [id number], [id number], [id number] #### [facility] (DEFAULT) [address] [place] [address] Hematocrit (Bld) [Volume fraction] 36.8 % Normal 34.8-51.9 [facility] Comment on above: Performed By: #### 1 [id number], [id number], [id number] #### [facility] (DEFAULT) [address] [place] [address] 25573 Hemoglobin (Bld) [Mass/Vol] 11.9 g/dL Normal 11.8-17.7 [facility] Comment on above: Performed By: #### 1 [id number], [id number], [id number] #### [facility] (DEFAULT) [address] [place] [address] 74707 Instr WBC 14.2 x10 Invalid Interpretation Code [facility] Comment on above: Performed By: #### 1 [id number], [id number], [id number] #### [facility] (DEFAULT) [address] [place] [address] 20536 Man Diff? Auto Normal [facility] Comment on above: Performed By: #### 1 [id number], [id number], [id number] #### [facility] (DEFAULT) [address] [place] [address] 43912 MCH (RBC) [Entitic mass] 30 pg Normal 24-34 [facility] [facility] Comment on above: Performed By: #### 1 [id number] #### [facility] (DEFAULT) [address] [address] MCHC (RBC) [Mass/Vol] 32 g/dL Normal 26-37 [facility] Comment on above: Performed By: #### 1 [id number] #### [facility] (DEFAULT) [address] [address] MCV (RBC) [Entitic vol] 94 fL Normal 81-100 [facility] Comment on above: Performed By: #### 1 [id number] #### [facility] (DEFAULT) [address] [place] [address] Platelet 181 x10 Normal 138-427 [facility] Comment on above: Performed By: #### 1 [id number], [id number], [id number] #### [facility] (DEFAULT) [address] [place] [address] Platelet mean volume (Bld) [Entitic vol] 10.4 fL High 6.3-10.2 [facility] Comment on above: Performed By: #### 1 [id number], [id number], [id number] #### [facility] (DEFAULT) [address] [place] [address] RBC 3.92 x10 Normal 3.70-5.30 [facility] Comment on above: Performed By: #### 1 [id number], [id number], [id number] #### [facility] (DEFAULT) [address] [place] [address] WBC 14.2 x10 High 3.5-10.5 [facility] Comment on above: Performed By: #### 1 [id number], [id number] #### [facility] (DEFAULT) [address] [place] [address] Electrolyte Panel Standardon 09-18-2021 Anion gap [Moles/Vol] 12.0 mmol/L Normal 5.0-19.0 [facility] Comment on above: Performed By: #### 1 [id number], [id number], [id number] #### [facility] (DEFAULT) [address] [place] [address] Chloride [Moles/Vol] 98 mmol/L Low 101-111 [facility] Comment on above: Performed By: #### 1 [id number], [id number], [id number] #### [facility] (DEFAULT) [address] [place] [address]25 CO2 [Moles/Vol] 28 mmol/L Normal 21-32 [facility] Comment on above: Performed By: #### 1 [id number], [id number], [id number] #### [facility] (DEFAULT) [address] [place] [address] Potassium [Moles/Vol] 3.8 mmol/L Normal 3.6-5.1 [facility] Comment on above: Performed By: #### 1 [id number], [id number], [id number] #### [facility] (DEFAULT) [address] [place] [address] Sodium [Moles/Vol] 134.0 mmol/L Low 136.0-144.0 [facility] Comment on above: Performed By: #### 1 [id number], [id number], [id number] #### [facility] (DEFAULT) [address] [place] [address] Inpatient Patient Summaryon 09-18-2021 Inpatient Patient Summary [address] [address] Patient Discharge Instructions Name: ZAINA WINTERS Carmen : 1950 Patient Address: [address] [place] [address] Primary Care Provider: Name: Jeannine Hurley After you are discharged if you find you have any questions, please, call [phone] ext [phone] to speak to a nurse. Discharge Diagnosis: Acute pain of right knee Prescription Information: If you have been given a prescription for narcotics, seek immediate medical attention if you have any difficulty breathing or any sudden status changes such as confusion and sleepiness. If you or anyone you know is experiencing suicidal thoughts, mental health, alcohol and/or drug addiction problems; contact the [facility] 05/09 Crisis Hotline -Text 4HYVY to 517166. If you received any narcotics, sedation, or [...] decisions or sign any legal documents [facility] would like to thank you for allowing us to assist you with your healthcare needs. The following includes patient education materials and information regarding your injury/illness. ZAINA WINTERS has been given the following list of follow-up instructions, prescriptions, and patient education materials: Follow-up Instructions With: Address: When: Marina Redd [address] [place] [address], [facility] [address] [address] Business (1) 10/01/2021 11:00 AM Medications During [...] weight to tolerance (more content not included)... Normal [facility] Pharmacy Noteon 09-18-2021 Pharmacy Note I have [...] [Verified on: 09/18/2021 10:36 EDT] Emiliano Montgomery [facility] Progress Note - Nurseon 0 Progress Note - Nurse Discharged to home. Prescriptions and instructions reviewed with and given to pt. He verbalized understanding. Taken to awaiting vehicle via wheelchair. All belongings sent with pt. [Electronically Signed on: 09/29/2021 14:49 EDT] Mildred David RN [Verified on: 09/29/2021 14:49 EDT] Mildred David RN [facility] Progress Note - Nurse POC discussed with pt. Educated on safety and ADL care once discharge home. He verbalized understanding [Electronically Signed on: 09/29/2021 14:49 EDT] Mildred David RN [Verified on: 09/29/2021 14:49 EDT] Mildred David RN [facility] Anesthesia Noteon 09-17-2021 Anesthesia Note Patient: ZAINA WINTERS Age: 70 years Sex: MALE : 1950 Associated Diagnoses: None Author: Eugene Castaneda MD Postoperative Information Post Operative Note: Operative Day. Anesthetic utilized: General. 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 Assessment Anesthetic outcome No anesthetic complications noted. Pain controlled. No N/V. Hydration appears adequate. VSS. Pt only concerned about sitting up Plan Transfer/ Discharge: Patient can be discharged from PACU when criteria met. Condition good. [Electronically Signed on: 09/17/2021 14:12 EDT] Eugene Castaneda MD [Verified on: 09/17/2021 14:12 EDT] Eugene Castaneda MD [facility] Anesthesia Note Patient: ZAINA WINTERS Age: 70 [...] All Problems Atrial fibrillation / SNOMED CT 09464748 / Confirmed FH: hypertension / SNOMED CT 809874207 / Confirmed History of post-polio syndrome / SNOMED CT 397563734 / Confirmed Aftercare following left knee joint replacement surgery / SNOMED CT 316576204 / Confirmed Resolved: COVID-19 / SNOMED CT 4812591071 Resolved: Diabetes / SNOMED CT 418801649 Histories Family History: [place] - Cancer of colon Grandparent Heart attack Mother Grandparent Tobacco user Mother Father Brother Procedure history: Arthroplasty of knee using cement ([id number]) on 03/02/2021 at 70 Years. Back ([id number]). Comments: 02/04/2021 10:08 Oliva Van RN surgery [...] Oriented. Review / Management Laboratory Results Plan [employer] Anesthesiologists#(A SA) physical status classification: Class III. Anesthetic Preoperative Plan Anesthesia: General. , Regional adductor canal block for post op pain control per surgeon request. Anesthetic plan, risks, benefits, and alternatives discussed with the patient and/or family. Patient verbalized understanding. [Electronically Signed on: 09/17/2021 11:19 EDT] Eugene Castaneda MD [Verified on: 09/17/2021 11:19 EDT] Eugene Castaneda MD [facility] MAGR Intraoperative Recordon 09-17-2021 MAGR Intraoperative Record MAGR Intra-Op Record Summary Primary Physician: DAVID AWAD DO Finalized Date/Time: 09/17/21 14:17:42 Pt. Name: ZAINA WINTERS /Sex: 1950 MALE Med Rec #: [id number] Physician: DAVID AWAD DO Financial #: [id number] Pt. Type: D Room/Bed: [facility]/ Admit/Disch: 09/17/21 08:03:00 - Institution: Case [...] Role Performed Surgeon - Primary Anesthesiologist of Technical Expert Record Time In 09/17/21 10:35:00 09/17/21 10:17:00 [...] CST Meyer PA-C, Matthew J Role Performed Forestry Scientist Scrub Personnel Physican Airframe Technical Officer Time In 09/17/21 10:17:00 09/17/21 10:17:00 09/17/21 [...] By Zhanna Urrutia RN Scrub 10% Povidone-Iodine Coker Prep Area (more content not included)... [facility] MAGR Intraoperative Record MAGR Intra-Op Record Summary Primary Physician: Finalized Date/Time: 09/17/21 10:39:41 Pt. Name: ZAINA WINTERSO.B./Sex: 1950 MALE Med Rec #: [id number] Physician: DAVID AWAD DO Financial #: [id number] Pt. Type: D Room/Bed: [facility] Admit/Disch: 09/17/21 08:03:00 - Institution: Case Times [...] RN, Brayan Altamirano Role Performed Anesthesiologist of Technical Expert Technical Expert Record Time In 09/17/21 09:55:00 09/17/21 09:55:00 [...] Signatures Signed By (more content not included)... [facility] PAC[facility] Record [facility] PAC[facility] Record Summary Primary Physician: DAVID AWAD DO Finalized Date/Time: 09/17/21 15:19:58 Pt. Name: JHONZAINA MCKEON./Sex: 1950 MALE Med Rec #: [id number] Physician: DAVID AWAD DO Financial #: [id number] Pt. Type: D Room/Bed: 229/1 Admit/Disch: 09/17/21 08:03:00 - Institution: PACU Case Times MAGR Entry 1 In PACU I 09/17/21 14:10:00 Discharge from PACU 09/17/21 15:15:00 I Last Modified By: Vianca Celaya RN 09/17/21 15:19:57 Finalized By: Vianca Celaya RN Document Signatures Signed By: Vianca Celaya RN 09/17/21 15:19 [facility] Preoperative Recordon 0 09-17-2021 [facility] Preoperative Record MAGR Pre-Op Record Summary Primary Physician: DAVID AWAD DO Finalized Date/Time: 09/17/21 10:43:23 Pt. Name: SINGH ZAINA Colvin/Sex: 1950 MALE Med Rec #: [id number] Physician: DAVID AWAD DO Financial #: [id number] Pt. Type: D Room/Bed: 229/1 Admit/Disch: 09/17/21 [...] consent correct. General Comments: Pt arrives to [facility] ambulatory. Pt denies CP, cold/flu/COVID like symptoms. Pt denies, DM, pacer/defib, POOL. Finalized By: Vianca Celaya RN Document Signatures Signed By: Vianca Celaya RN 09/17/21 10:43 [facility] Nutrition Noteon 09-17-2021 Nutrition Note Pt admitted [...] with in house available Ensure Compact BID. [facility] Progress Note - Nurseon Progress Note - Nurse IV fluids stopped for good PO intake at this time [Electronically Signed on: 09/24/2021 15:45 EDT] Raquel Duvall RN [Verified on: 09/24/2021 15:45 EDT] Raquel Duvall RN [facility] XR Knee One or Two Views Rig [...] MD 09/17/21 4:07 pm Technologist: Abilio AMIN [facility] Progress Note - Nurseon Progress Note - Nurse Pre-op phone call complete. Reviewed arrival time of 0830 on Monday09/17/2021 and pre-op instructions with pt. Pt voiced understanding and is without further questions or concerns at this time. [Electronically Signed on: 09/16/2021 09:25 EDT] Brayan Roach RN [Verified on: 09/16/2021 09:25 EDT] Brayan Roach RN [facility] 2018 Novel Coronavirus (CoVI D-19), JULISSA LCon 09-14-2021 SARS-CoV-2 (COVID-19) RNA JULISSA+probe Ql (Unsp spec) Not detected Invalid Interpretation Code Not Detected [facility] Comment on above: Order Comment: [id number] Result Comment: This nucleic acid amplification test was developed and its performance characteristics determined by [employer]. Nucleic acid amplification tests include RT- PCR [...] detected) result in this assay. Performed At: [address] [id number] Zay Landa PhD Ph:[phone] Performed By: #### 6 [id number] #### [facility] ([facility]) [address] [address] Coding Summaryon 09-14-2021 Coding Summary HTMLBase 64 NkpxedneUOj9kQh+PGhl YWQ+MU6PLYJfU16ltJRw uZ4HZ9oABC1GSONTQTYC CV7FHE4fvUX5WWxrP8Xe biAv TjcraUCtRZ89SEc1QEW8 pPnzAQoqbY5hmYQfA9h9 GdHrXZ19aG98HQhsFTCy IuK8QpTsxbukzFSc A0sgXnMjxXXiNoi+PHRh YmxlIHdpZHRoPScxMDAl MiPqmJkjVP1kZy6pSSRt LWNvbGxhcHNlOiBj x0bsORRaFHnlWR3ofAeg U6QfnHH9BYPqu7i3Qy55 dHI+DJVfFVL7xOogGZmw n315YbWip2zyRKB7 cRNeIYsiZYK5F03tt1U7 HRTfGAUhVXC9rET8yV7k iMiwshvqV3RhzLGvKmW7 BYA8qDYlyQ3pqQrz asvnkU0zPup+N60HUH3C RYHPTJ7VHzj3V9YbZknq dHI+PX06GRMeIP96mUNp yXGkl7habGb4WwJd EPWiJZB9uVwsKWkum6Xu AWRxF48yfVXjx6Z8URFw nXbrrFKhKfAwyHK2lQ1f UZgolcvxk2wivasn Tbpqr9cezr55iI71I45f CRhpXALjXSP7ILWrOLNp kHbpre6cyT8jQv1+IDxj k6nzq4racEg3JvWn DFQihzTbtRdhFOG9w6Fv Iy77Y3MbkLfqh1FhVdn5 sf51eJRiq4A4pOQ4SVeg UEFkwI3tAIruWjA2 ENJoEqFdxD09iNDpGIge Ma8hkZauwKzyFT2xCKUj styxRGPztR7qFZYtcOQo jDzdVD8qTJKpmvhx g862DnMeSYK7HAKxpGDv C2UvgR6bGyJcGMOtPBDo M7GuoOQhCLzgQ577JRke WvK8XXOexgDrG4Jv QPYesCnvRvQ6p3T1Te0R m6EoqjknJCK3QTxxPYH3 NcCoRvYpSgC9F8FvCmx3 XSLkwMdbWW0dW4Wf MULeuznvvqtgbLD1ZXJe SIDlnA08gVRlOPwpJl3a l3V0g225VHJvKWRpnR98 Ec9oaBmkAKOsfPHX oD2pansvg9gpqjqpVoOh TALzWPr2SHs2YLLhuZdm OoHfBPL4XuB3RTL2jAJt zV5aeVqjcqrumI6s Oyc+G69ouE0bJBI0MAU2 uocyKBQtyjRnLQ02NY20 K4JzMamziSZwjPX+PGRp aaNbiAgyHV9rHpEd e2kkw9RoOGfxC9TiDVSo HFolChe5LCMlPEQ1sZY6 tC7jAGNtWSjnj8A1qGK6 B0RodqXhuj8lo9yr LZIcJBseA47edZHnf7D7 VQFonHN4PUKdqWdgLjPo yV12Gtj+QOEglRtos3Qh Cwuaz8fsw6hdxSi2 IjMwJSIgdmFsaWduPSJ0 j8VlHc84Z02fWEjbJPYa VZIpYPUpTSHduKrzqa6a oB1tId2+PGNvbCB3 rTM3aO1dRAWfUyG4QJtx R850ScOymTIbFoseh4dt a1oyaKv8QlCiGDMbvaWf bNxwPGK7b1EiMe10 N05aDHnnVMPaHFNvWQQq UIIfaBupuu1iwN5hMw1+ RH9fv0kzdz52wO50nRB+ RPVvCRO9bPhxNSej FBFgbM3oUXwyEhF4GTFu UdCskV95eTImGFurTb4e aVzcxWigMZ2zBXWysqjv q745KcCwl4sbBHMa iJZjOTfbTPD5W88un8F1 EDBjLCQbEDP8kYM7tF8w bGlnbjogbGVmdDsgdmVy yHojNLydJYmsN327 IHRvcDsnPlBhdGllbnQg LwKtZYr2R0SzUrw6QNEw bFoxVZ2exTMoCHskYy6j wOmagPsuFU3zFSTa zgzev749BcYpb7klDYLf jKTaJIllVFU9R20zy7B9 VIUvMBJjQJM9sVR4tG2l bGlnbjogbGVmdDsg vzMgfWmtUZvnYXtuT213 IHRvcDsnPkJpcnRoIERh aUN3VE11AN00yVVgi3Z8 yCY6G7HtBXKlipyk cdzhbAT7FOFvJOEhuF29 Ox4xbFtrWo8sIADuIMK9 PZAfvBAiJ5WhfR8iNaTq ZLFvOXMoX3TlqACp CKtwZ682VLliMuJ2DKVk xjZsA2BzGMFknDxsCyU4 p0P3Bo5RB7W0KJ47CP44 fYEio0P1eKV6S0Bd QVDwirfwcnleaBG9FDGe FQQogX30Qi8qfSaaBs1g WKEzBZI2KWEywXYoX0Mm yN2gNmHwDQStDVJw U3KevNYsXIohG066KUau FoP7PGKyzkKbX7ZyMXHx sBjnRtD3m2W8Tp6QDKt1 UE65FS31cAZka4A1 jVL3K8CdUEOpamrhfzno fLH6JYJyGJBnoB55Ej9z nXmhEs9kYFDmACC9RJYt lZOsL1EsgH4yMoEp OQXtMIIkI3NegFCxKMpk S630FGhfYnJ6HPUypjLr K7IjSZSzbCsoJeY1m4D6 Ol8SUMDxDV04HYY4 bJB7HG67KD45P4VyYptd dGFibGU+PHRhYmxlIHdp ZHRoPScxMDAlJyBzdHls WC4xDq7qQFGuBVZp lJqxnMNqCiHsz9xjDPYt LHnpEF6quFpnE0ZwiAH0 NGDkp9f1Lx59E29yL4Um dXA+TXRhpLH1aFC7 dZ5lAiPoNfD0AXhzS557 TcPkgPEfWpgrz9tkh2js nWv2FkZ0YGOtqpPetGot OTO8l2JuAs33K03x IHdpZHRoPSIxNSUiIHZh kFzkqp3nhY0kRx9+PGNv yII1gZD3tK2rYuSyJgV6 WXqgH597SeKvnFWd Bosan6rcd8uiaYu0AlKk XJAvdkIvbVlmCNU0t3Vp Ob25H5UtkGjrs2ExHke2 gv96bIKzc6Q5nLQ7 T9PzFVYsaypjnKPgtYti IY3rICYwxnqdMWIghL4z HBBgS3v7FqPsQqD2UJkv A0OgskB9OTMjuMJv VEzrMOJ2R81tj0G2LPVc UFHvEIO6aFG8nU6ynLuz bjogbGVmdDsgdmVydGlj QLuxHBigL559HCFr jLcuXSWgfG0rHXGkdZMq tBwmXD3sGBDbapwjKpdD QkVSTElORywgTEFXUkVO L9RxTFbyiCM+PHRk FGN8nJlsHUzqCFCboV4p MDClV5e4JmCsNiS6QVmt A4NyWXFehmqrXv03qF7r PjAcZtL1DWdfG3Jy pmL3WMQmoJBxBRdcZZR0 V02le8Y7JXDlKOWnUXQ9 rCD5wE0zaWvcyhxfpLBf dDsgdmVydGljYWwt POniY140JGDmgBjaPoT3 BaBiJpL4RGy9N9OkIrx4 MSXmwEfhCP8rrMZmLAyn Gh9rwHnccYyaUS6r NOJfycmgCUUjvN6xWXSu uNAhxJyqPV1zOAEtnwwz t075YyOkAZP9MLHmlYTg Z9RehY3iVkPqPCNa XUBaA3AyfYIyGAgjK578 TJfaTsB9AFIxoiVrR3Wx HEZyjFlzCjM8f4U9Yk82 MiBZZWFyczwvdGQ+ OXLwEUC5yQsxPJyqLMJa lK7hJUEmW6g0OnKzVqC4 LGtnT6FyWIBxouojRx67 jI0vQhEwRhU1QAec O8JeenZ2NSKlvBUrWFlq DNU1N98rr7Q2ZQTqNNXy TLD9uUY4iF8xdIpfarqy bGVmdDsgdmVydGlj RSzrLWxqR374ZJNfgMbx Jv7HTKK3S6PxSel7VIRj lCamLR8atJLiXPykQo6n wOvudGvwJR4pYCLe udwgCDZjmH4aFZTgrNEh wFhcZG7oKJQbbhmdl157 PuHsQPC9IANqwMJhY4Oz tD7aIqCeIPChZUEn K5YtoROfNDpkB574DNft OgV1XTHpdeTuV9GiNMPo rCjsYyW9f4Y9Qn4CCMma dGQ+DN55fv63W8Fy DngsXvn5PYUaNEU1xTH3 dU1yOVYpZGfqz6X4pJD5 D6JlasQmro1wx8oqPNEe PDglR11fnJYct4D8 MDTxbHB0RZCgfMooMwOn hC58Zem+XSWbxKthc3Tc Gnzhn9uge5dizUv9NcXc JSIgdmFsaWduPSJ0 c0FjQb30B17jQVvxHFVw MQJuDTQoQVUyvQnskd0v lH1qYx0+BZYpsRA9aVE5 vL4rFeMfHaY8ONir K911JsLhhOJiTiipa9uq y8qwuEb2BpPhQGXudxEe aMlcLIF4p2LcYu38G6Ti jSdcm8ZjHzi0zl19 uUZfw1D6oMI1H4QxVADy xitfpNVutQhdFB5lCFHf ukbpRCKbeK7qHRXnF4e4 BfWySdU9DAfwN5Cr unH4EGIduDKcRJCirLEN tQ2ahogmf3rxoreeGmLm WJZzSOl5EEw3IIPdlLzf PgHzWBO1FkG0PUW2 mIXhgH9myCbtzjywjN9w Oyc+EAm8m0dyiMMjZK5x bEX3QA50IZ73zQXst4O6 hNA8D9CxHRMscqws xmrhfIC9FRXeOHUhtD53 Ab1doZowLa9rSQHxKIK2 IPLwoHLzQ3KnwR9jPeBe OJYrYAAbC6VqnNHz BPpfC708HWabJoZ7KXLf hsQaL8FiIDZieOooHaE0 h5A4Xj8QVS70CL61HR50 jUMxq3V6jZU6O2Ig HBZmsrrksbusoXP1PRBo DUSafX28Vg9lwBerFa3y BWChIGG9EZWlpSXbA5Cq pL6pCfJxCRYqRGLz M0CttDGbZWulW599CGex TeA7FCKbccFlK9XhIIGs jZsgYvF5e7N1Vc9DCx63 ED08TI11eKIto7G1 rIG8X9DsCUUqjkrscotf sFH5NQNtTWVgoH96Jo9t wKhaEd3cTOFmDFQ4VAIa nVXwF9XitW5jLoZz ADQdSYMdY1TnuEXvEQyh S986IEdkWbE6OSVhrwGu D1QuAQUrsWunTdC4j9R1 Px2NBRdxqqh2K9Dc PjwvdHI+YW39TEFuPF33 bPCufSVmr9bowLg2XjBt YXUpDJK7pMqxNTtek3Qo NTEwC12cdILpc0Y3 IGN (more content not included)... [facility] C Urineon 09-03-2021 C Urine <10,000 cfu/ml [facility] Comment on above: Performed By: #### 6 [id number] ####[facility] (DEFAULT)[address] [place] [address] Progress Note - Nurseon 08-14 Progress Note - Nurse PAT chart for 09-17-2021 surgery reviewed per anesthesiologistDr Mccauley- no additional orders received. [Electronically Signed on: 09/02/2021 13:45 EDT] Rita Molina RN [Verified on: 09/02/2021 13:45 EDT] Rita Molina RN [facility] Provider Orderson 09-02-2021 Provider Orders [id number] #[id number] Normal [facility] .Auto Diff 09-01-2021 Auto [place] % 9 % Normal 1-12 [facility] Comment on above: Performed By: #### 1 [id number] ####[facility] (DEFAULT)[address] [place] [address] Baso Abs# 0.0 x10 Normal 0.0-0.2 [facility] Comment on above: Performed By: #### 1 [id number] ####[facility] (DEFAULT)[address] [place] [address] Basophils/100 WBC (Bld) 0.6 % Normal 0.2-2.0 [facility] Comment on above: Performed By: #### 1 [id number] ####[facility] (DEFAULT)[address] [place] [address] Eos Abs# 0.0 x10 Normal 0.0-0.4 [facility] Comment on above: Performed By: #### 1 [id number] ####[facility] (DEFAULT)[address] [place] [address] Eosinophils/100 WBC (Bld) 0.7 % Low 0.9-4.0 [facility] Comment on above: Performed By: #### 1 [id number], [id number], [id number] ####[facility] (DEFAULT)[address] [place] [address] Lymph Abs# 2.2 x10 Normal 1.3-2.9 [facility] Comment on above: Performed By: #### 1 [id number], [id number] ####[facility] (DEFAULT)[address] [place] [address] Lymphocytes/100 WBC (Bld) 31 % Normal 14-48 [facility] Comment on above: Performed By: #### 1 [id number], [id number], [id number] ####[facility] (DEFAULT)[address] [place] [address] [place] Abs# 0.7 x10 Normal 0.0-0.8 [facility] Comment on above: Performed By: #### 1 [id number], [id number], [id number] ####[facility] (DEFAULT)[address] [place] [address] Neut Abs# 4.1 x10 Normal 1.5-9.2 [facility] Comment on above: Performed By: #### 1 [id number], [id number], [id number] ####[facility] (DEFAULT)[address] [place] [address] Neutrophils/100 WBC (Bld) 58 % Normal 44-88 [facility] Comment on above: Performed By: #### 1 [id number], [id number], [id number] ####[facility] (DEFAULT)[address] [place] [address] Standardon 09-01-2021 eGFR Non AA >60 Invalid Interpretation Code [facility] Comment on above: Performed By: #### 1 [id number], [id number], [id number] ####[facility] (DEFAULT)[address] [place] [address] eGFR AA >60 Invalid Interpretation Code [facility] Comment on above: Result Comment: Planning Feeder korina Kidney disease could be indicated at eGFRs of less than 60 ml/min/1.73m2. Kidney Failure is indicated at less than 15 ml/min/1.73m2 Performed By: #### 1 [id number], [id number], [id number] ####[facility] (DEFAULT)[address] [place] [address] Anion gap [Moles/Vol] 12.0 mmol/L Normal 5.0-19.0 [facility] Comment on above: Performed By: #### 1 [id number], [id number], [id number] ####[facility] (DEFAULT)[address] [place] [address]73 Calcium [Mass/Vol] 9.7 mg/dL Normal 8.9-10.3 [facility] Comment on above: Performed By: #### 1 [id number], [id number], [id number] ####[facility] (DEFAULT)[address] [place] [address] 33627 Chloride [Moles/Vol] 102 mmol/L Normal 101-111 [facility] Comment on above: Performed By: #### 1 [id number], [id number], [id number] ####[facility] (DEFAULT)[address] [place] [address]6024 CO2 [Moles/Vol] 29 mmol/L Normal 21-32 [facility] Comment on above: Performed By: #### 1 [id number], [id number], [id number] ####[facility] (DEFAULT)[address] [place] [address] Creatinine [Mass/Vol] 0.94 mg/dL Normal 0.90-1.30 [facility] Comment on above: Performed By: #### 1 [id number], [id number], [id number] ####[facility] (DEFAULT)[address] [place] [address] 26033 Glucose [Mass/Vol] 109.0 mg/dL Normal 74.0-118.0 [facility] Comment on above: Performed By: #### 1 [id number], [id number], [id number] ####[facility] (DEFAULT)[address] [place] [address] 46495 Osmolality 281 mOsm/L Invalid Interpretation Code [facility] Comment on above: Performed By: #### 1 [id number], [id number], [id number] ####[facility] (DEFAULT)[address] [place] [address]673 Potassium [Moles/Vol] 4.1 mmol/L Normal 3.6-5.1 [facility] Comment on above: Performed By: #### 1 [id number], [id number], [id number] ####[facility] (DEFAULT)[address] [place] [address]9069 Sodium [Moles/Vol] 139.0 mmol/L Normal 136.0-144.0 [facility] Comment on above: Performed By: #### 1 [id number], [id number], [id number] ####[facility] (DEFAULT)[address] [place] [address] 45701 Urea nitrogen [Mass/Vol] 21 mg/dL Normal 8-26 [facility] Comment on above: Performed By: #### 1 [id number], [id number], [id number] ####[facility] (DEFAULT)[address] [place] [address] Urea nitrogen/Creatinine [Mass ratio] 22.0 mg/mg High 4.6-16.2 [facility] Comment on above: Performed By: #### 1 [id number], [id number], [id number] ####[facility] (DEFAULT)[address] [place] [address] CBC w/ Auto Diffon 2 Erythrocyte distribution width (RBC) [Ratio] 14.0 % Normal 11.5-15.0 [facility] Comment on above: Performed By: #### 1 [id number], [id number], [id number] #### [facility] (DEFAULT) [address] [place] [address] Hematocrit (Bld) [Volume fraction] 45.0 % Normal 34.8-51.9 [facility] Comment on above: Performed By: #### 1 [id number], [id number], [id number] #### [facility] (DEFAULT) [address] [place] [address] 95611 Hemoglobin (Bld) [Mass/Vol] 14.5 g/dL Normal 11.8-17.7 [facility] Comment on above: Performed By: #### 1 [id number], [id number], [id number] #### [facility] (DEFAULT) [address] [place] [address] 46356 Instr WBC 7.0 x10 Invalid Interpretation Code [facility] Comment on above: Performed By: #### 1 [id number], [id number] #### [facility] (DEFAULT) [address] [place] [address] 73701 Man Diff? Auto Normal [facility] Comment on above: Performed By: #### 1 [id number], [id number] #### [facility] (DEFAULT) [address] [place] [address] 18961 MCH (RBC) [Entitic mass] 30 pg Normal 24-34 [facility] Comment on above: Performed By: #### 1 [id number], [id number] #### [facility] (DEFAULT) [address] [place] [address] 46383 MCHC (RBC) [Mass/Vol] 32 g/dL Normal 26-37 [facility] Comment on above: Performed By: #### 1 [id number] #### [facility] (DEFAULT) [address] [place] [address] 37969 MCV (RBC) [Entitic vol] 93 fL Normal 81-100 [facility] Comment on above: Performed By: #### 1 [id number], [id number], [id number] #### [facility] (DEFAULT) [address] [place] [address] 06176 Platelet 216 x10 Normal 138-427 [facility] Comment on above: Performed By: #### 1 [id number], [id number] #### [facility] (DEFAULT) [address] [place] [address] 00356 Platelet mean volume (Bld) [Entitic vol] 10.2 fL Normal 6.3-10.2 [facility] Comment on above: Performed By: #### 1 [id number], [id number], [id number] #### [facility] (DEFAULT) [address] [place] [address] 24720 RBC 4.86 x10 Normal 3.70-5.30 [facility] Comment on above: Performed By: #### 1 [id number], [id number], [id number] #### [facility] (DEFAULT) [address] [place] [address] 71732 WBC 7.0 x10 Normal 3.5-10.5 [facility] Comment on above: Performed By: #### 1 [id number], [id number], [id number] #### [facility] (DEFAULT) [address] [place] [address] 58238 XR Bone Length Studies [facility] 09-01-2021 XR Bone Length Studies Scanograms EXAM: [...] MD 09/04/21 4:45 pm Technologist: Elysia SIMONS [facility] Complete Blood Count with Au to Diffon 06-09-2021 Basophils (Bld) [#/Vol] 0.04 10*3/uL Normal 0.00-0.20 [facility] Comment on above: Performed By: #### C FRANCISCA CBCAD #### [facility] [address], [place] [id number] Basophils/100 WBC (Bld) 0.6 % Normal [facility] Comment on above: Performed By: #### C FRANCISCA CBCAD #### [facility] [address], [place] [id number] Eosinophils (Bld) [#/Vol] 0.11 10*3/uL Normal 0.02-0.50 [facility] Comment on above: Performed By: #### C FRANCISCA CBCAD #### [facility] [address], [place] [id number] Eosinophils/100 WBC (Bld) 1.7 % Normal [facility] Comment on above: Performed By: #### C FRANCISCA CBCAD #### [facility] [address], [place] [id number] Erythrocyte distribution width (RBC) [Ratio] 13.7 % Normal 11.0-15.0 [facility] Comment on above: Performed By: #### C FRANCISCA, CBCAD #### [facility] [address], [place] [id number] Hematocrit (Bld) [Volume fraction] 43.3 % Normal 38.5-50.0 [facility] Comment on above: Performed By: #### C FRANCISCA, CBCAD #### [facility] [address], [place] [id number] Hemoglobin (Bld) [Mass/Vol] 14.1 g/dL Normal 13.0-17.1 [facility] Comment on above: Performed By: #### C FRANCISCA, CBCAD #### [facility] [address], [place] [id number] Lymphocytes (Bld) [#/Vol] 1.7 10*3/uL Normal 0.9-3.9 [facility] Comment on above: Performed By: #### C FRANCISCA, CBCAD #### [facility] [address], [place] [id number] Lymphocytes/100 WBC (Bld) 26.3 % Normal [facility] Comment on above: Performed By: #### C FRANCISCA, CBCAD #### [facility] [address], [place] [id number] MCH (RBC) [Entitic mass] 29.1 pg Normal 27.0-33.0 [facility] Comment on above: Performed By: #### C FRANCISCA, CBCAD #### [facility] [address], [place] [id number] MCHC (RBC) [Mass/Vol] 32.6 g/dL Normal 32.0-36.0 [facility] Comment on above: Performed By: #### C MP, CBCAD #### [facility] [address], [place] [id number] MCV (RBC) [Entitic vol] 90 fL Normal 80-100 [facility] Comment on above: Performed By: #### C FRANCISCA, CBCAD #### [facility] [address], [place] [id number] Monocytes (Bld) [#/Vol] 0.6 10*3/uL Normal 0.2-0.9 [facility] Comment on above: Performed By: #### C MP, CBCAD #### [facility] [address], [place] [id number] Monocytes/100 WBC (Bld) 9.6 % Normal [facility] Comment on above: Performed By: #### C MP, CBCAD #### [facility] [address], [place] [id number] Neutrophils (Bld) [#/Vol] 3.9 10*3/uL Normal 1.5-7.8 [facility] Comment on above: Performed By: #### C MP, CBCAD #### [facility] [address], [place] [id number] Neutrophils/100 WBC (Bld) 61.5 % Normal [facility] Comment on above: Performed By: #### C MP, CBCAD #### [facility] [address], [place] [id number] Platelet mean volume (Bld) [Entitic vol] 11.30 fL Normal 7.50-12.50 [facility] Comment on above: Performed By: #### C MP, CBCAD #### [facility] [address], [place] [id number] Platelets (Bld) [#/Vol] 222 10*3/uL Normal 140-400 [facility] Comment on above: Performed By: #### C MP, CBCAD #### [facility] [address], [place] [id number] RBC (Bld) [#/Vol] 4.84 10*6/uL Normal 4.20-5.80 [facility] Comment on above: Performed By: #### C MP, CBCAD #### [facility] [address], [place] [id number] RDW-SD 44.9 fL Normal 37.0-50.0 [facility] Comment on above: Performed By: #### C MP, CBCAD #### [facility] [address], [place] [id number] WBC (Bld) [#/Vol] 6.4 10*3/uL Normal 3.8-11.0 [employer] [place] Comment on above: Performed By: #### C MP, CBCAD #### [facility] [address], [place] [id number] Comprehensive Metabolic Pane chikis 06-09-2021 Albumin [Mass/Vol] 4.6 g/dL Normal 3.6-5.1 [employer] [place] [employer] Comment on above: Performed By: #### C MP, CBCAD #### [facility] [address], [place] [id number] Albumin/Globulin [Mass ratio] 2.2 {ratio} Normal 1.0-2.5 [facility] Comment on above: Performed By: #### C MP, CBCAD #### [facility] [address], [place] [id number] ALP [Catalytic activity/Vol] 80 U/L Normal 40-129 [facility] Comment on above: Performed By: #### C MP, CBCAD #### [facility] [address], [place] [id number] ALT [Catalytic activity/Vol] 16 U/L Normal 9-46 [facility] Comment on above: Result Comment: 01/13 Female reference range changed. Performed By: #### C MP, CBCAD #### [facility] [address], [place] [id number] Anion gap [Moles/Vol] 17 mmol/L Normal 12-20 [facility] Comment on above: Result Comment: Effe ctive 02/18/2019 reference range changed. Performed By: #### C MP, CBCAD #### [facility] [address], [place] [id number] AST [Catalytic activity/Vol] 22 U/L Normal 10-40 [facility] Comment on above: Performed By: #### C MP, CBCAD #### [facility] [address], [place] [id number] Bilirubin [Mass/Vol] 0.40 mg/dL Normal 0.30-1.20 [facility] Comment on above: Performed By: #### C MP, CBCAD #### [facility] [address], [place] [id number] BUN/CREA 20 Ratio Normal 6-22 [facility] Comment on above: Performed By: #### C MP, CBCAD #### [facility] [address], [place] [id number] Calcium [Mass/Vol] 9.4 mg/dL Normal 8.6-10.2 [facility] Comment on above: Performed By: #### C MP, CBCAD #### [facility] [address], [place] [id number] Chloride [Moles/Vol] 101 mmol/L Normal 98-107 [facility] Comment on above: Performed By: #### C MP, CBCAD #### [facility] [address], [place] [id number] CO2 [Moles/Vol] 26 mmol/L Normal 20-31 [facility] Comment on above: Performed By: #### C MP, CBCAD #### [facility] [address], [place] [id number] Creatinine [Mass/Vol] 0.7 mg/dL Normal 0.7-1.4 [facility] Comment on above: Performed By: #### C MP, CBCAD #### [facility] [address], [place] [id number] eGFRAA 132 mL/min/1.73m2 Normal >60 [facility] Comment on above: Performed By: #### C MP, CBCAD #### [facility] [address], [place] [id number] eGFRNAA 109 mL/min/1.73m2 Normal >60 [facility] Comment on above: Performed By: #### C MP, CBCAD #### [facility] [address], [place] [id number] Globulin (S) [Mass/Vol] 2.1 g/dL Normal 1.9-3.7 [facility] Comment on above: Performed By: #### C MP, CBCAD #### [facility] [address], [place] [id number] Glucose [Mass/Vol] 98 mg/dL Normal 65-99 [facility] Comment on above: Result Comment: For FASTING Glucose --- ADA reference ranges: Normal 65-99 mg/dl Prediabetes 100-125 Diabetes >/= 126 Performed By: #### C MP, CBCAD #### [facility] [address], [place] [id number] Potassium [Moles/Vol] 3.9 mmol/L Normal 3.5-5.5 [facility] Comment on above: Performed By: #### C FRANCISCA, CBCAD #### [facility] [address], [place] [id number] Protein [Mass/Vol] 6.7 g/dL Normal 6.1-8.1 [facility] Comment on above: Performed By: #### C FRANCISCA, CBCAD #### [facility] [address], [place] [id number] Sodium [Moles/Vol] 139 mmol/L Normal 135-146 [facility] Comment on above: Performed By: #### C FRANCISCA, CBCAD #### [facility] [address], [place] [id number] Urea nitrogen [Mass/Vol] 14 mg/dL Normal 7-25 [facility] Comment on above: Performed By: #### C FRNACISCA, CBCAD #### [facility] [address], [place] [id number] Hemoglobin A1Con 06-09-2021 EAG 136.98 Normal [facility] Comment on above: Performed By: #### A 1C #### [facility] [address], [place] [id number] HbA1c (Bld) [Mass fraction] 6.4 % High 4.0-6.0 [facility] Comment on above: Performed By: #### A 1C #### [facility] [address], [place] [id number] Q - B-TYPE NATRIURETIC (BNP) on 06-09-2021 Natriuretic peptide B (Bld) [Mass/Vol] 33 pg/mL Normal <100 [facility] Comment on above: Order Comment: [facility] performed at: [employer] [facility], [address] [place] [address] Rd, [address] [facility], [place], [address], Program Management Professional: Curtis Lyons MD [facility] Collection Date/Time: [facility] Results Received Date/Time: [facility] Reported Date/Time: FASTING: NO Result Comment: BNP levels increase with age in the general population with the highest values seen in individuals greater than 75 years of age. Reference: J. Am. Cheryl. Cardiol. 2002; 40:976-982. Performed By: #### 3 [id number] #### [facility] Default [address] [place] [address] Coding Summaryon 03-16-2021 Coding Summary HTMLBase 64 XcngkccdVPy0kNi+PGhl YWQ+ZI9HMHQeQ22ioYIx cW6JD0eQVP9KPUPTIHHI WV8DGU4mdCG9FPspZ8Cl biAv TxkuvABqMQ03DCa1WQX5 cZrvULdceH3hlEIpB3e3 QuTfBR37pL40JPdyRZAg EuB0XaJmdosqtSEl Q4isZdHtwCXlEgj+PHRh YmxlIHdpZHRoPScxMDAl AdVrvHsuAG8vRh6kLXTa LWNvbGxhcHNlOiBj l5ntRATrWOpsMB9nnQzk Y4HhuCY2YPUau8c3Dv89 dHI+FGZeRXA9qGchZOnh t322PlEjd0bnVDC1 qDPwGVdgRYB6T62xf4J2 CDVsDWNmBTG0cVC5gV9u vIztfsrbQ7FcfXSvPyT2 IYL5iOMdxP6isWer tmtvhR7zQvp+Z94MVL1B LKPWRU9VNih6I6UhOwae dHI+YH48QOVhWT83bUEx lOKtk8temDp2GsKs IZZjSJO1yLiqJYkvx5Kp LYNsQ73woFAga0Q9AFXm hEvjsPDeMqPbaDI3hF7c TEipalnqp5gtrkzm Wqdfk3mghj85cP67S90s QEusNPXsRHR5AAGzRXRz cLxrpy9apZ1hKv8+IDxj s6yxy9zxrUg5CeGg LSPxmqNjhEmiAMB3h3Xk Yx31Y2VfoEkra6LiLul4 ua03jYIvq4H0ePH1PYth AFDplI4aVKtbDzG4 NGUzWqFddT62yWVxRAmz Ff6riSujeOykSG3qXXSw avlwDJAbrY6cQTNltFXg qBtkSB2qXMWtfnno u656HmTiMOI7RKOpuLPf G3JcxE3vRiAqOJZnPCEh Z8DorOZtRBfmF585PZmu VvG9OLCfyaPtZ7Fd KNAbaVekErQ7e2U9Qd3F q0QpzbpbWZN7PUzgATHh SzViSxNoLrK4I1SdQgm3 ZDTgvLkyGQ6jG8Nf EKCrktffelobhBY3WFSk AVHxwV02tBEqZUbvMu2a j4V6p920VBGwPXWdoF38 Oh7jiRvuEPVlzKTX lG5sttmbb4wyagccFyJo MFZkVYr2QSg7BYRndLrd YqTeYES1OoU9DQI1rHEo jJ8mzGukjatvbW6p Oyc+V16vjP8nKNZ5YQO4 jyuuUAKcjqTmLZ09RF70 X0LtYcryuMAsrRC+PGRp svGouHskIP7qIpQr v8xou9UsPMikK7FhEWDr YXztIyb4EJYiCVH9vBV4 qT4pDSZoGTcmr2I7sAE2 X5TnwyIeca6pr7dw NSIbOGozE14joQXsz9M8 VNGpyCA7ZWAssUjxApRk vU46Hyf+PFMzxNbyg8Hh Jqgys0gke7akbXq5 IjMwJSIgdmFsaWduPSJ0 y7HwIc97J17bXRpuZUSu RCCiJPPcXNTlqPqovf4b hR1lXq7+PGNvbCB3 oDY6gA1zDRUlExR9JVnk Z761PnPynKYxXznuh0an h5rspWo7SlUpOMHghrWk xTfyAYX2l4YsMs73 G32hZSjtXBOeCYWzBNMl XDUgjNquuq6vcG4hFz5+ KA6sj4uqvu80uX00iSA+ TPJkCCB2sRkwTHpf CPZjiF1lZPxzVpD4OFMj NmRglI53nZYiCAygGh8e hYurcZcxEN0pDBQaldwj e507PtXqn6bfFABm qLVrWBjxHZY7G93on7W2 ENSvTTFkQAA1wKV1bQ3b bGlnbjogbGVmdDsgdmVy hNdpCYciRIhrH688 IHRvcDsnPlBhdGllbnQg VlLfYIj2O9DeBfe7JOSz fTnlYF5egVBuCRcbVl0e zAijgLgmZT8dBUFm gpigu234BuHvm0nkXMJf wWAiTLcqBRC9B40lf7V9 CMAwLXDwADR9cSW3mF8t bGlnbjogbGVmdDsg vmCpuKohDHiwLOdfL058 IHRvcDsnPkJpcnRoIERh pKR5ZA62CB86aIOmj0I1 zJK4P5CaHNHsyuen ygyefTH0BPElTDXzaL58 Er3rjSkoNj5kHRTnWSW8 KMQsoWKdF8JgxM6lMtAf YDGgBPByA3JorGSt WMiiI490XAjmDsU5AVZo alIgA5PmMRSpnAtnBkG5 g0S3Cb9OS7X5VU59AI84 iOCds2K3ePF9R7Yd TAAkbqxlqbadqLO1ODKs UDJsiO77We2laPbxHw8t XEObROM6OHHktKMjB4Lg rE5nHlIvNURsQYNl S1EspEWfMIwoY718ZWjs GpL4TIWenwLnC7EjTSMk hLjaBvG9j6X6Ej6MOVt0 SE97SB02rXTjt5J0 qEZ4I0IvZQYtvntzjxef dBV1ZSAfXONaeT15Qp4y rRfjTu1eCIXlUHM8EJXv yBQgH7FzzW5fKwUh JCJaJLArA5PakTFjKJiq P768NAqwEhK3NJCobiIg Y0JrMQEmxGfnEtZ0w8Z7 Tq4HZOQnLN79TAH4 sJA1PK39AU66A0WmQtki dGFibGU+PHRhYmxlIHdp ZHRoPScxMDAlJyBzdHls YM5rVm7dVCKuSEAr uDzylHQyPwRvz7ppDHTj OHxcOS5vaKpzU0FguJP5 RUZwa1y1Ag90A52uM3Dm dXA+KYVjmGU2aFE9 eW1mPnWgQyJ9KMjxP907 SwIjzNUvYphkh6hzb0ms nVo0RkQ3KWNthaFjsOzz VJO8q5AxXs12B53b IHdpZHRoPSIxNSUiIHZh dVaeek2pgQ6bJg0+PGNv uGN0iTU5sK4iYlDwSjR1 TSnoC078MkEdbARp Kwnel4lrl3lckYq8OlGj BKHncoWrnAbmFTE7b9Mk Ex30N1TofOehz9NeQzy6 rr08wHDaz4Q3rQD2 X6FcXFOvusxpnCGyhKcn LG3yHGYsskgeJYQqtX4d TPLlM6u5PeOlUtV1FTso H1WovdO0KTXcqAWy TPuoUNJ2B36fh6H6OQBc MTGnTIR9rCZ8qJ3qaCou bjogbGVmdDsgdmVydGlj VNnpOCweP944NRZj iWoyXMDrzO6iJSYtjIPr qKswDO8bDMFkmhbzNbaD QkVSTElORywgTEFXUkVO B7QrJWkfkQF+PHRk WDF0tMvjEQuwPSZwxD8l IOItO5c0SqVkSnD5OZha L9ElWWHlugvsTp67eX7t CkRkXxE8DBihW4Qp jjU8OZPilMHvETlwWWO3 Q44dd6C3RROuNUTrEDG1 qMW8qX7dnJyyxlvcdJPg dDsgdmVydGljYWwt OJupW195SKMslCehWxF2 EwLqZuT3YRk8C6DcWxx1 XLEhzUniKC1rrZDbHOcg Ec9vxStbyTnjWW3a QIBhzjlyLAZguE1lVPAj oWZyrZwxLH4hTTTsmknn f624KhWqYUF4UJSstNMw A1ThqP7sTrSrAWCg OVSoT2QplNMrYKynI542 EXpqZtG7DSAezoCcE2Ae IQRxvHnjNoQ8j6J3Oc45 MiBZZWFyczwvdGQ+ ZXMtMMW9wLdlFRsvFUGj aJ7lHXFzS2e3IdPpFpF3 HDmhC3KkXXTbuhbrOi62 pI4qFfWpBtO7OBse C1AgteD4NGPurHYyTAoq JVD7D30jx2N0JJBvXKLt FRU8nOZ4pN6vgLrtnfrw bGVmdDsgdmVydGlj RYinDCixR070XVWoePcr Pb5XTYB1L7JyQnw1KAQa uZscFA1fzAUzYEbyVi5d sPxuqTnkEX1cUDLw qqtcFCNveG7nYQRyuYRs wOrcNL7vUWGsegsig329 LiRuVMP1LNWtyFDyY0Ah fV1qVoNpYDHeLWRd U3LgvYWkDKxcV564WIhm IeJ5RSKrlfIrE6AlFOUq nZrlPoG7w8K2Oq0IMIbn dGQ+FL35mn26G2Ps MgbyFog1NDScRRG8iKA6 lT4bUGCpSVjrg6Y2qBK7 E9LdieIrej2uz0ygKIKn ZTbeE34odDSwc7W4 KIWxwRQ9TXOkaSetFmZz kW99Vtl+LQQqnSxkj3Sf Fbfng3qpm4ttrTy5JePy JSIgdmFsaWduPSJ0 u2GrEo12T35iCSxvEIKl KJBrBROkXDNmtCyfly8s rC7xGj3+OBFskCT1qGP0 mK4fKmPmVyP3LYpj K526EiVtnIYjKuhdr8pw r0tmkSb4WsQmKVYmzkJe vZjjPKP3o1LoTl31D0Sg kHdjm5PrYta7in79 tSRja0U4wFW1B7RrDBYi hjvmeJBvoUurZG6bBVOs qihtGKDpjZ0zHYGjR2u1 NiZtIyY2VBdqD6Mu kwB3UYEfxMKgGAEcbRTB nS1mofkac1glvpppDeCf UNXxXTc4RXd6UGBofIth MlNgBLO9CtK0NJJ2 rJIqhX8muWhfcpkdkP2u Oyc+YEi8l1iavCZcIU9y xRL7VM21AC42rCTcu6B7 tDX6T4AtVXFplsrz pihxfPY3KYBkOMZljG52 Wn9cmQxxHj2qGAGwGXV4 PFBbvFLwM0IxgA8yOtLj BVZiGLOpF5RmaNLn XVvfG348CXzpVwN2JXYg rhHbF7PiIVIlmDahJwG8 u8R1Ys3GRL30MT00WQ90 ePPcf6F0cLC5A9Bf HTQegudykscdcNM0GBZk YTVuwD71Gr0blVeePs8i JDUzVFN2UYMamVXzP9Io zI7pJlHxNBVsNGIa W5FvbJNqNMgaY630MSex OiB3HOJdrpCeP1GfPNRo mNmmFxF5p4P9Ny2AVi63 OH33WC64sQMzd2H5 nMK9L6QzQJWsmyolqjju pGX9IENaYEZuhL97Ng2q sVgtCh0bIBBdUMD9UZIx mTVzF6NtkP9eBxFo AMYtDZXfO9CqoEDfQKbh O337UXexZdR1TOEwzcNj D3FiHWMysLhtEsY4y6U3 Bt6PLQfikku2M9Gh PjwvdHI+TH95PJFzCD35 gTDwxFTle8spaVd9AcJb QZHeRVZ5zEcyNGeyg1Df JOZhY17ygXSpw9Z2 IGN (more content not included)... [facility] Consent Formson 03-12-2021 Consent Forms [id number] [id number] [facility] Coding Summaryon 03-09-2021 Coding Summary HTMLBase 64 KtpvpnpiBVu5fJj+PGhl YWQ+JI0DKIAoC60imHKm lT9YG5fLOR6VNSWPWDMI ZM7JAU9lfGZ5JCyaI1Gb biAv WinvnGTdHZ06QIc7VRL8 vXiuDRxqbL8maLNcP7a4 IeMfDD28xW34XYglXVAu CbD1LtSvvmjlbHGt U7kjWjRgeMDvVmf+PHRh YmxlIHdpZHRoPScxMDAl RxUqeKniFB9rAy8hJCWm LWNvbGxhcHNlOiBj w7ujYTNzXYmpOZ3rbAfr F7FofTU9CTKby3r1Ml75 dHI+RXLmJYG0uTclXHyz n059GhPsr4rnNMM4 hMAjJDyuSCL4D00bp2I6 RKIgBFCuPXV3sFH8mD7q nKpqpwncE6WbjBLqAfJ3 OKY3rDFuyR0ewRse csjpsF7bJdq+X30NJQ2Z RKMCCM9FNcj0C7WgXfed dHI+EQ75RHDsBT18pGMt sUPbn3eoqRx7PxCv ATBkHKI8zNgzNNdqg5Lh APMvS15wsQPwn7J0KHDm uLxuiKWiBfAeaYM7uP7l OQhjddyvm8lisqse Ntpml4zfrx68eE54S51o DEunCXBlVBM9MQMoBLUh yNmkba2joU8wFf5+IDxj p9kuj3irtBf3QpYm XVMbheMatAgbONO1e6Ib Vs84L4YzbEziq1OrGlw5 fh07oLRvn7B7vAR3CPqe WTPlsX0lKDiiOrJ6 HUYrKjYuhA57iMVvMPpn Ok7gsFszcHifTU2yZVIu xqrpMSCbxE2nSHEerAXs hQwnJX7sRMNogrqs g783XiCbDAW8VJEfkHRz G7MzlT3wAcJcPRXzRTZw M0WahSUrINqcA809SUer ItU0JPLoddSfJ6Pr IGEafVvqCzS0r0W7Zd2E c2QcjbhrXDQ7OMunNULm UaT2OiPnUfR0D5DhXws6 BRSexEhiEN2tA1Eb NRDrycqkkiuobMN1TSDi BMLgeK53mMMdCEdvVp6h j4E0x521ITQmRDHmyP16 Jd8jqZvqMZYrrQKM kH6wobknx8sckmmlLuTg QZBvLQu8NFg6HDNwhGtf ThVoNHT5ApG8AQS9jCVn xQ3adDwhjphlfP5m Oyc+D39mmB0hXXQ7XDW8 wlfzPJEwbyRpHY94FD01 V6ZiBoxdcHCftKM+PGRp meTxfUahVB1fKgPs m3cdk4ErBDkjE9IyLQAe NVjdIzt7SDHtYYW6pOA4 xD6fCRPiMWcje4K9rHF6 D6ScjfSyah0bz5hw BLFeBRduP83xiKPdm8F4 FVAiuUE2PIWumAxoWkMg cB00Mkj+BKMthJrlf5Je Rzwxp3adc6iymRn7 IjMwJSIgdmFsaWduPSJ0 v3RaEc26M44eAYllKHDv QQMkLLMbMIBdwTmywt7l iG8qGs5+PGNvbCB3 lHU6oJ4bHSVfXmJ6ATge O647DhDyvSLvMvumw3du v9tviIg7ZqWwOSIuugMq rUgnUEN0i6VtWq90 M30hKJkmNXXqEFGbQKUj YXRwkLrukq3qdK3cQy5+ YA7ik7wyak10dA49eOA+ LJIkCXG4vDjcHTsd KBJhhF5cDUycGtA7XIOf WkOehN76pUYvWImtGn8j vUzbeEcbTP6zMELgazoq f807GjXbb6jhUVQa gJOhKZksXIT1D37ko1G9 LCBrSATyFXA4cQZ0eY0q bGlnbjogbGVmdDsgdmVy tWcuPGnmVRlkP719 IHRvcDsnPlBhdGllbnQg BhHjEDo6P1DrXre5CYXg lSxtJJ1rqJYoEPudHa6y fBlrkDgiHS9vDKDm ugweb625KcNcu5wqRKFe yDRnZVrsTKE2X71rt6R2 KGTlJYZhMWY8tFN9fH7u bGlnbjogbGVmdDsg rzAlwQdpSOujFDoyT694 IHRvcDsnPkJpcnRoIERh gEU8BK73BY33lFBtw4H4 tFV4H0VoBACtqwzh tzmmxMX8CUGuAVNffQ74 Oy8doCdeCs3qSYNuIPU2 HWQqkCCoP4AtoV4kUrDm HFZhCWCrN4TlaBGe TQekH698JImsVjS0VKSd ceOlV0HpRLMyhQokIrS5 r5Q2Qf7TK8A7OH17BN02 oUKqr7Y6eOQ5K9Fp UBVqkplfwoeegIK3HTAt JWWcuA43Aa2lfQojXc8j OASoPTZ8MQLifJVmD5Dx rV4iGhZsYAIvPZPv M9TxlZRfGJqdO476ZOpc DtU7CHOuhnVsF1JbSSQa tVuxZvQ5m5F4Cp9SGMp6 KO30AL11mXDnn3W8 qTC6F4LoTEXnijdkbhor xJZ9PMMiINJhnZ20Rc3c oQweWu8pSPGiKRV4XSBw uTWuG9OcmB5jEmMj HPKdEMUcZ6JeyYUtOFmp P821DCjxFiR0OWCmboQs Z0JnZIJneCeyCpK4r5E3 Gd7AZKAxIA14RYG5 kER4LN30VC08E8CoVexg dGFibGU+PHRhYmxlIHdp ZHRoPScxMDAlJyBzdHls MF2uBx4vMOUoGWQb yZgqmGSjXjMbh4faAJDx MAvqFY4pyKaxD9HuhRH8 QZNka9f2Hm89A46jB6Qz dXA+UTDihME1zZV6 vA8iJrZuFwP0NGxtG024 JhWzoZArWewon0vni3wr vIl1PrV8XOQjwwSpxBsf VDO3v3PjAl13R20m IHdpZHRoPSIxNSUiIHZh eQgopb7viT4zVg8+PGNv fFM8aBQ3gX0mCvWmZmC2 ENxhK156OdNsiOXx Unjxs7frv1whhQw8EdSc DXAyzqWiaZbdFFZ9h5Ta Fk76R8JbqMxfv6IoSrl4 sf83hAWdq3V3wKS3 L1GwNAZsjlmbhOIsqXjv GK0aCLRlqzbaXADnyS4u SBVvN5o4RvQlKxW0EUrg E4OanxK3ENFxpELu ETqxJJM1L69ik7Z8YFUo YQIzVIK9tJY0iS7uqNet bjogbGVmdDsgdmVydGlj VBmqRTtnN987OZMz zGeuOXHxuH4zRIHjcJYw zAcrIO3gNWNepcnqZdxK QkVSTElORywgTEFXUkVO E7MgFRbrjYJ+PHRk RCA4wSvlLHdvCTBdlI0p YOJnE6l4IoRxBpI0CDrn W5KoVEDnmoztEx87oR5j OdErCyH9QUbdY6Cy rnP6KDYebWPfUTxoKTT3 O69dx4K1PVXfJTOsGQL7 kVK9dC6zwPjqusdcaSMv dDsgdmVydGljYWwt TWjhM173FOEkvBioPnM4 VqAaZpU8BOt4C7HeJan0 MJAuxBrnVZ0jpMLwFPod Ou9ggHwcdNovBP2o PECswzcxKTFvtY7lZKRn qVAxnDqvNP5mOKCpuvrw l149WyPlWRZ3INGslSHg D4WqeG3pZfBfSSTz IFVoW7UmlNSvJXdjT339 ZTecQhD2CGItjhZjF4Wm ORXunNvaUyP9m7F5Vz25 MiBZZWFyczwvdGQ+ DBIuBFV1bZzsFPpmMMIe hT9tWJEnO2g2QmZdZwN7 THrcP5WwTWZyavaeYb44 kU3uDuYlSxM4OSxq P8BugzV9AREvmBMaJGmn VTW3X38cr5M5VOSxKZQt XGW6wAQ1zL4lmLnopalf bGVmdDsgdmVydGlj TRyjBNbmL525OUFpsYdl Ec6QUIA8R0ArWfg3AKTh bKjvRG5lwWBuXTnkEd1g wSbliIkhYF6dCDBu syndPPCmoJ8kCJKvmWGy rGsaKQ0lLOWxqhpnf298 YtLdVHC7PXSrbXZmF5Fe tA6oTnKsMAYaVJWs P1TerDYzWJfnA711RWzq UjD1LAVnhnNeV2PyKEGf cOviLdE9m0F1Xk1JEfOx cnZhdGlvbjwvdGQ+ RV59uu54P0BlGulsJum9 GZCvYQL1fEK7nJ7kJDSz KXhty0U5rPB9W8ToxhCa xl9hu4dhVVVrPHjf W79siJHcf1L2NHZxnJZ0 HNMuhPmzWyCcuZ35Ont+ FEPhiKovp2VuTpywo7vc a9ahlOi1JdZxBBFm reErmUerFNS4k3QlRa26 L70hUPriJEOjYTGmEWGd YUExuDkxyo6icL1lIc6+ IZGkbIW5yKK2sG9u SzRbXhD3JZjuV465GwXn yKAqZsxzz1jnc8ukfNc2 IjIwJSIgdmFsaWduPSJ0 w6AfBj45N3ZigNtg x2MmAmj9um93rKWex1B9 tNH6C1YwFPTynkckhAIf cLsqOY2vCKBcppodMJJx lB5lXAUzH9k6EpEx WtA1RWklX6XfvfQ5OUHy eYQmBRGtcNTWkI5zqluz f3trcjvuMkKoQQBiGAq3 KSy2JOConNndHpCn GXI8GiJ8BLP3oVAdvO2p bAnrfepbfF3fZpb+UGh5 z9dhyWZgWX6geWS3SS81 ZQ25zSZwb5P0zMP4 O3KkUBJxuqzgiicwnTX3 RTDxURPcnC32Me9cyXkc Me9nKZWdXKI2LBEhnFHc Y4ZvtZ6wKwRwXRBd LWMjP0YtuIHmFAilT137 UTljLpK8DVIzqoJtR0Nn LOFwmLzpGsO1p3V9Xw8K BR13ZE83PS17mGGa s3J3xBK2L4OyIHTzslgg plnphKS2LOGhVOZrlA54 Sr1zfItdQj6dGWHiKFD3 ALYrcOZyJ8DjnF3j SvFiPSJtUFVsH4XayJAw FQpzI299URopXrY2UNHc hcQmU2MyRQMiaRkdQiL4 s3U5He6YJf33XO77 KV26zVWoz2E0rYP0A0Ze KDBlqnyrzaymhWZ2LVSc MCPzrG34Vn4bnIgtCz4x CEZjSUH6ZJQvlONy J4FjzF6vKmAlCICiKRJl O7GsiDRhONdqV061JSrg AnT2ZJWmitUhT0SzZZXy qEcqEsZ5t3G6Mi4A VLantuw7A2MwKeedwYM+ JE60GAThWZ98gQMddCJg z4lxrAm3YzKuEFSvWKE0 vNivDHelu8AnRIQa Y29 (more content not included)... [facility] Coding Summaryon 03-08-2021 Coding Summary HTMLBase 64 LlstkjhuREv3qMz+PGhl YWQ+HY9YAMTlL28rqXBk dO1WN9xENY3JRFQAMNHZ FB0LRD1qpAG5OOviT1Nd biAv DegfvBWuAH88LNx6EUV4 fAzqSJwdaE4qgZQgA0m3 QfVgLX69uA21ECtbIBYh AkJ9DoXgbjorcBHs D4lkFgInjSUfAcw+PHRh YmxlIHdpZHRoPScxMDAl TwJcrDlwMR2uJv2kUXIt LWNvbGxhcHNlOiBj n3koMNPxOEcuLY0qySlt X1ZdsKA9LAJnp9x5Td64 dHI+VOLwBFI9qFjpEAih j237KzHuc1tyJTQ0 mTZiBRuhZTC5N09qr4Y4 TRGkBNKaVHM1pEM7jS5p mYevshsmH4PyhFMnAjT9 SCK4mAEtlY9ntIzq egxrpP6eXse+I02LVG6V JVNMCU8GHyj5Y5YcNdpb dHI+MT59HIVlNL84sROz qWJyk9mjiQg9LwXt MKXbHUO1yPksHDire3Jw LBNgR45evAAtv2C0HUTv vOtvjPYwUtPkzBE9gG2t ITblcwzfv3wsoirz Tgjvv3yaje42nJ36T62f TKksVFKmHRL5UPPpGKVa cImfrt4wlN3wCm4+IDxj s9pxs7rdsDo4QcZu QXJqvoJvdDunBQY4t3Ad Nn77G6HqhZwhs0FzYtl6 hq33wAAnq7A7rAE0MGdr AWMssL2lFXtdShR6 EZUmGrKseO07gGIdWPge Fw6ysBjolSuuKV1eYDNh futaPNOedQ5mVSNjjMSf eLunPO4vDNNryndg q548AeLoSYC5LRHykTXo H0AgbQ4aPuAaYIZeHBKe X5MgwZLgLRarW149IRhu VdM4YQNcrjAdX6Cz HDZksSoeQeS3o2X1Db1K b7QiisyhHRQ9HUetVEXc ZiB8RkYbPsX8F9YpLku0 IFRulFzqKI2vC0Nj OKYoquujcbqsnTY1DWGa WPNokT45fDRoZSxtOj6j a8Y8h540CERwKRRalS61 Pg3ibAcoITVbuQDG fF1vupobd8ytnchjHeFl ZCWsZQo0HQa0KCIhjSpu AeTuSFT3QzL7USX7wOAf oW9glFjdxubybY1m Oyc+C43lrD1gXBD7RLO7 hahnEEGjqvPhMP11VI55 B4LxXykvoYXttNM+PGRp emAdmOkaFI6vUaIa b5oug1LwJMsrE0LtZPLj KUrzLug3MBItKZR4mWX9 wT7vYUUrZRhnv0Z9xBM4 C2IveiLyrs9wk3mm ILQmCHmyN40hwWDio1Q2 KCNszKR7GHPbcLodPlBd nZ41Vra+JQIgoUnhf5Qp Dtand0rmv8vqfAm6 IjMwJSIgdmFsaWduPSJ0 f4UvAo70J35fUTlhQXLn TNMgUOWkLOFsdYthcv2h yK7vNz0+PGNvbCB3 xEG2gQ6tYAKwDpD9MGsi L599LuZeyMLxYtclc7xu p1nztKq0RsVnACOtbnLl hVagLUN4q4KuSj43 X10pYJtwKKKpOGVxSCVh AFZiyGywpn5abW8dJt7+ YA6mw8uqtp15xF28bBA+ HUNbXMK2dAdvIRrh CQJvnY1wHWovYdZ2ZUZi HpWciG62hMNkWKccEg5h aXafsBxsHN6eZHNhbhbw i177FeWwf4ezVCVe oEYwDWdzBRF9S39fr4O1 PFJnZSGjTAR6oXH6uU8c bGlnbjogbGVmdDsgdmVy zSjbBGikHNoyJ608 IHRvcDsnPlBhdGllbnQg GePzNMt3J6WxFjw2UCMt tJeeJB1inNQrNZacUz8b hThouWgpUA7iOVSi snpqm539MrGla4cqNCBy tMKnAPtvRAD3C14iv9D9 YKJmSKVuZVV4lYV3xY3k bGlnbjogbGVmdDsg vkBeyHxdKLauHQlqV696 IHRvcDsnPkJpcnRoIERh xRD0YX72ZQ54cJUhv2B9 qAR2N9VcQFPcyvqt xodbcZG0NCWcADBhiP84 Cd3dfSokMf0lMRLsEAD5 BGMvqFObU3ClzV4yKyEp ICSpTODrN1FqyMOj ORrlL877SXwcVpI8TCTs njYsP8SwEAZbuMvvLuD8 k5K5Ji0PT4C8ZX31YJ51 eTIgb8Q5yJA1S7Vy ICTtbjlilxarmGB5UDWw NMVoqY89Og9vvBldLf5m JCChVTA6QEOuvOFmU3Xq oE1wTjSyAQOfBAAf Y1UrmFCuDKtzL758EAvs MeR4UZBolqImY2UdITAi fTrjXmG2w8J0Ib5QVWg8 VC09FQ99cDVlk5Q6 sNE5L9MlKYOzxgevrocz gXV9CWQjTIEohA32Oy9c gWueQo1fMOCwYOH6MBNf yJKhD7GueI6hMaIe KGMnEGAbG2SijKBaKYjr F982OOvcUbH4QVQjzgKm A4CmDODlgLdhDmM0z4F2 Dw2VJMRgLR07FZR3 gUZ0DM92GD35O9TdLbge dGFibGU+PHRhYmxlIHdp ZHRoPScxMDAlJyBzdHls IT6dCs9yAVIqYEAj qNgfrPDgCoDep1orPQDx GAiyIE7glWtbO5KusHW5 LNFti1q2Tj19H26sV5Fn dXA+ILKcuIX1yBM4 aT6gHwIjYvN8HYenQ111 QcSgwDOkLuoub1nhu4ix pTp7FzM0SXBmqgYqgEft AWE3q1HzNp59H41x IHdpZHRoPSIxNSUiIHZh oLcaco5jrV3tSm6+PGNv zTT9pAF0xI9qItWbHmD7 QVwxV798HlGjfHSp Pubsb9sct4irnXw9XzKy EHQbddQtvFsqPYG7s2Fx Ry91H8GhsTphe6XqMfi5 zm04tVGgg9C0bHY5 F0CsQJDifmnlwXAaaIbz JM8rHSLtfrivFDDxhQ3i QKUgN1v3TyPwOmV8FLsq G2LivoC9HIEqdRJi KYqeQKU6T54ea8I7LKJd WAWqBSJ3xVB1lH8uqHsl bjogbGVmdDsgdmVydGlj SGejSDuhL740ZARn mAhlXNFjhZ5kBCIfdLXf tDjeLD7zMBCbowwnUrcC QkVSTElORywgTEFXUkVO U7JqCPqazMH+PHRk ATX6tQyeSJjaUFMjlA5t IETiD3b3KzOjAvJ3ITrd S6HrEQSvbcqgHr25jB4u KgNkRqQ6WLwtM9Ur tlP9UCQaxQTbJKfnGQL5 Z19fe6P7NYZnEMYtKKQ6 eHB2qG0zgNatfpbgjWSh dDsgdmVydGljYWwt VWkjG580WUSokBuuPuP3 FtWkAdH2ITo4K1RzUvd5 ZHAlsDiqOP2mwWHyBUmi Ri4phStdlHttTT7q QQCpmriyWAFfcM0hPVHu yFDcuUbzLJ6hMMHxuzca w755UaKbHBJ2PFOemLYx J4YsxR0xPoXrJVHm LLRbY0YaeAPbRQowE759 IFnjIsL4UNHjkaXmA1In EWNqvYtzAtV3z3G4Tb41 MiBZZWFyczwvdGQ+ GWRmXWN5xFrlGMurTENy wH5mPUIkD4e6JrWiXoG4 TGgnH7PcWFDllitxWh11 aX7ySpFoOdF2YBlb U1VxueH9WPNpxVDeNGdy YGB0F07im9W3EOTvHQZl FHT4gWG0kM4ecFjyplzu bGVmdDsgdmVydGlj RSzcGNrbU734SBDziNts Zk0GAET3D7GkPqm6EWQt cDukSV8deZKhJBmfUc6e fAetxUanXQ1oZHVw fwjdRDEeqE5uBSYagEGn pIaqGI7rQJJtgazmm684 WvUmSAP8BTWjcGFrY8Zv oD5iPfExLSDhVNHc G3IvmSVdMLlqE832ZLet ZvG9NWUmdmMrV7ErEIEs bKozWrG0b6W6Rp7NRPgg dGQ+FN50fy63A6Ih MxngTxi2IWPkUSY8hWQ7 xC8kPZDtGSsjk1J5sXQ7 C8KeynXkxj4ie3akBTZy KUyaA85dtCQsd0K9 VAZggNJ3VDYtoWqdPmLl qZ56Htj+ZBAtdViad5Nn Tekfs3vkp8imzLr1ZtGl JSIgdmFsaWduPSJ0 r3NbBb26X64vHEveEBUs EGZsTPKfYEJohLcmyy8v qX9nPo1+KPUtdLG2oCS4 wV2qIjQxHoZ6ZBda H098JqMsmJKmOraaw1af o9gspJw3WaDgCCVhuvLd qDwaEJY6c6YuSe13I8Tw gPobr8MbBtw9ou81 rUBeg7L2bQP7E2SrSJWj tjuzkTUlqNbsYW4fQGAe quqbGNKsmH3bHYXkJ6x0 SyOwGrS8BDbvB8Ra dzH7WGVymZFeZEEdwRQQ rV5kauzmj2wzywneSyTv FIHnJNj6FEr5WXUzmWgs NkYaSZY3NkK5CCB6 wNGswQ7kdSqnlagbqF8s Oyc+AXl4l2okmLNlQD7b oPC5JB33OU34iKUdc1W3 cVY2G7LlCYZoufrm ulaviAB3CZVcLDDnnS76 Ug8eaTjvQp1oHZCvEQC7 ICXrkEZsU6JxwA3fGrQo YDLbCYFjU9YsfQJd IZowA371NXkuVqC8WOIr rgLdP5UrVGArjVzzWuV4 b4B1Ia6TEQ03FI49FV30 jTJpf2V8oTH8W0Yv UTTseuuooarolAN1JDHy SIGdnH00Ex4wnUzlVx0l FCCsAON1LBGiyUCoP1Lx xW0qVvVdLQFyOEUf F2LqoQChXPawA709BCal DnA4HUUpbzCpY4IgWULm rHdxIiL1l0U6Yo5QQe20 DB17FH94fTPou2D1 nNK4H3HpXMZphncqyekh sQS6SEJeATItmM26Nx8e yNvwLb8yQXDvHRO9EXHd wNPlC1JfhT5qVjFx RNBgQDWbB2MerHWoGLch U714PVefJiX7MPWyalYy B6IgBZUzcQvoHjL0v4K2 En0NWYdznym2V7Bv PjwvdHI+HB06LGHwBO32 eLJjmEWbe4vwmGt9PkMv ZEAsAXI0dKueDXkcc4Ey ABUiF16jyLQgo8L5 IGN (more content not included)... [facility] Consent Formson 03-04-2021 Consent Forms [id number] [facility] Electronic Messaging[facility] 03-04 Electronic Messaging --- --- --- --- --- --- --- --- --- From: Ej ([email or web address])Ej To: ZAINA WINTERS Sent: 03/04/21 10:12:15 AM EST Subject: Discharge Summary Ready to View A summary regarding your recent visit is available in the Documents section of your Health Record. Normal [facility] MAGR Intraoperative Recordon 03-04-2021 MAGR Intraoperative Record MAGR Intra-Op Record Summary Primary Physician: DAVID AWAD Finalized Date/Time: 03/04/21 08:14:12 Pt. Name: ZAINA WINTERS.O.B./Sex: 1950 MALE Med Rec #: [id number] Physician: DAVID AWAD Financial #: [id number] Pt. Type: O Room/Bed: [facility] Admit/Disch: 03/02/21 05:52:00 - 03/03/21 14:09:00 Institution: [...] Role Performed Surgeon - Primary Anesthesiologist of Technical Expert Record Time In 03/02/21 08:00:00 03/02/21 08:00:00 03/02/21 08:00:00 Time Out 03/02/21 12:09:00 03/02/21 12:09:00 03/02/21 12:09:00 Procedure Arthroplasty Knee Arthroplasty Knee Arthroplasty Knee Total(Left) Total(Left) Total(Left) Last Modified By: Jo-Ann Schwab RN, Barbara RN Long, Barbara RN 03/02/21 12:19:51 03/02/21 12:19:51 03/02/21 12:19:51 Entry 4 Entry 5 Entry 6 Case Attendee Marjorie Esteves ZIPPER TRIMMER HAND, uSe Horner ZIPPER TRIMMER HAND Role Performed Scrub Personnel Forestry Scientist Forestry Scientist Time In 03/02/21 08:00:00 03/02/21 08:00:00 03/02/21 08:00:00 Time Out 03/02/21 12:09:00 03/02/21 12:09:00 03/02/21 12:09:00 Procedure Arthroplasty Knee Arthroplasty Knee Arthroplasty Knee Total(Left) Total(Left) Total(Left) Last Modified By: Jo-Ann Schwab RN Jo-Ann Schwab RN, Barbara RN 03/02/21 12:19:51 03/02/21 12:19:51 03/02/21 12:19:51 Surgical Procedures MAGR Pre-Care Text: A.20 Verifies operative procedure, surgical site, and laterality Im.150 Develops individualized plan of care Entry 1 Procedure Arthroplasty Knee Total Primary Procedure Yes Primary Surgeon DAVID AWAD Left Surgeon Comment LEFT TOTAL KNEE Start 03/02/21 [...] Modified By: Zaheer (more content not included)... [facility] Outside Recordson 03-04-2021 Outside Records [id number] [facility] Orderson 03-04-2021 Provider Orders [id number] #[facility] Telemetry Stripson Telemetry Strips [id number] #[facility] .Auto Diff 1on 03-03-2021 Auto [place] % 10 % Normal 1-12 [facility] Comment on above: Performed By: #### 1 [id number], 16447694, 4349664214, 1732290206, 4530139, [id number] ####[facility] (DEFAULT)[address] [place] [address] 89991 Baso Abs# 0.0 x10 Normal 0.0-0.2 [facility] Comment on above: Performed By: #### 1 [id number], 01516552, 9366004778, 3095441545, 9418045, ####[facility] (DEFAULT)[address] [place] [address] 26522 Basophils/100 WBC (Bld) 0.0 % Low 0.2-2.0 [facility] Comment on above: Performed By: #### 1 [id number], 00063989, 9507546084, 7960801103, 8579800, ####[facility] (DEFAULT)[address] [place] [address] 60129 Eos Abs# 0.0 x10 Normal 0.0-0.4 [facility] Comment on above: Performed By: #### 1 [id number], 69454050, 6979655307, 6184417713, 7764682, ####[facility] (DEFAULT)[address] [place] [address] 87387 Eosinophils/100 WBC (Bld) 0.0 % Low 0.9-4.0 [facility] Comment on above: Performed By: #### 1 [id number], 05670228, 9831775269, 0911606680, 6156949, 4455490588 ####[facility] (DEFAULT)[address] [place] [address] 94793 Lymph Abs# 1.9 x10 Normal 1.3-2.9 [facility] Comment on above: Performed By: #### 1 [id number], 52386805, 6514592136, 2486808416, 2921779, 0581930343 ####[facility] (DEFAULT)[address] [place] [address] 69101 Lymphocytes/100 WBC (Bld) 10 % Low 14-48 [facility] Comment on above: Performed By: #### 1 [id number], 72032397, 3392546256, 4785143352, 8582443, 6220490196 ####[facility] (DEFAULT)[address] [place] [address] [place] Abs# 1.9 x10 High 0.0-0.8 [facility] Comment on above: Performed By: #### 1 [id number], 24979734, 2590313950, 9136772798, 3115327, 2789234414 ####[facility] (DEFAULT)[address] [place] [address] Neut Abs# 16.2 x10 High 1.5-9.2 [facility] Comment on above: Performed By: #### 1 [id number], 77755895, 6603856678, 4865662680, 6740260, 4536806014 ####[facility] (DEFAULT)[address] [place] [address] Neutrophils/100 WBC (Bld) 81 % Normal 44-88 [facility] Comment on above: Performed By: #### 1 [id number], 27772312, 5157675955, 9214594236, 1563874, 2106573831 ####[facility] (DEFAULT)[address] [place] [address] CBC w/ Auto Diffon 2 Erythrocyte distribution width (RBC) [Ratio] 13.5 % Normal 11.5-15.0 [facility] Comment on above: Performed By: #### 1 [id number], 74189130, 8475553801, 4865922777, 0180223, 2666984840 ####[facility] (DEFAULT)[address] [place] [address] Hematocrit (Bld) [Volume fraction] 40.5 % Normal 34.8-51.9 [facility] Comment on above: Performed By: #### 1 [id number], 56031929, 7114549994, 1347799898, 5076222, ####[facility] (DEFAULT)[address] [place] [address] 03141 Hemoglobin (Bld) [Mass/Vol] 12.8 g/dL Normal 11.8-17.7 [facility] Comment on above: Performed By: #### 1 477155982, 33130661, 5112444972, 2585315116, 4792900, ####[facility] (DEFAULT)[address] [place] [address] Instr WBC 20.1 x10 Invalid Interpretation Code [facility] Comment on above: Performed By: #### 1 [id number], 23586653, 3774050412, 9883840767, 4218077, 5351441262 ####[facility] (DEFAULT)[address] [place] [address] Man Diff? Auto Normal [facility] Comment on above: Performed By: #### 1 [id number], 79089171, 2342457846, 5758514785, 0708125, ####[facility] (DEFAULT)[address] [place] [address] 41896 MCH (RBC) [Entitic mass] 30 pg Normal 24-34 [facility] Comment on above: Performed By: #### 1 [id number], 19270599, 5185207101, 4749702816, 1621876, 8978417293 ####[facility] (DEFAULT)[address] [place] [address] 38149 MCHC (RBC) [Mass/Vol] 32 g/dL Normal 26-37 [facility] Comment on above: Performed By: #### 1 [id number], 83636305, 5395652501, 7730558609, 3768149, 5133709200 ####[facility] (DEFAULT)[address] [place] [address] 76250 MCV (RBC) [Entitic vol] 96 fL Normal 81-100 [facility] Comment on above: Performed By: #### 1 [id number], 85181334, 8233300222, 5038807346, 2791221, 8630277269 ####[facility] (DEFAULT)[address] [place] [address] Platelet 275 x10 Normal 138-427 [facility] Comment on above: Performed By: #### 1 [id number], 58840122, 4363604732, 5209759643, 4177035, 9081784285 ####[facility] (DEFAULT)[address] [place] [address] 11255 Platelet mean volume (Bld) [Entitic vol] 10.3 fL High 6.3-10.2 [facility] Comment on above: Performed By: #### 1 [id number], 90933566, 7256199053, 2240569142, 0094275, 6419297932 ####[facility] (DEFAULT)[address] [place] [address] 74170 RBC 4.24 x10 Normal 3.70-5.30 [facility] Comment on above: Performed By: #### 1 [id number], 11038539, 5727675990, 8640566807, 6927081, 5398767393 ####[facility] (DEFAULT)[address] [place] [address] 11532 WBC 20.1 x10 High 3.5-10.5 [facility] Comment on above: Result Comment: Slid e Reviewed Performed By: #### 1 [id number], 08261438, 8333878092, 2721853518, 1646219, 7112715338 ####[facility] (DEFAULT)[address] [place] [address] 80851 Electrolyte Panel Standardon 03-03-2021 Anion gap [Moles/Vol] 17.0 mmol/L Normal 5.0-19.0 [facility] Comment on above: Performed By: #### 1 [id number], 17328768, 7067140825, 7049532712, 1212442, 2024830977 ####[facility] (DEFAULT)[address] [place] [address] 20372 Chloride [Moles/Vol] 97 mmol/L Low 101-111 [facility] Comment on above: Performed By: #### 1 [id number], 26753567, 9051395129, 9635916533, 9675171, 6641928831 ####[facility] (DEFAULT)[address] [place] [address] 56194 CO2 [Moles/Vol] 26 mmol/L Normal 21-32 [facility] Comment on above: Performed By: #### 1 [id number], 52531440, 1798535960, 0145097213, 3328198, 6447923268 ####[facility] (DEFAULT)[address] [place] [address] 37439 Potassium [Moles/Vol] 3.9 mmol/L Normal 3.6-5.1 [facility] Comment on above: Performed By: #### 1 [id number], 46758528, 9847471543, 4515931701, 4960721, 3681960267 ####[facility] (DEFAULT)[address] [place] [address] 22723 Sodium [Moles/Vol] 136.0 mmol/L Normal 136.0-144.0 [facility] Comment on above: Performed By: #### 1 [id number], 34858722, 8834375791, 8534878914, 8633159, 5113752820 ####[facility] (DEFAULT)[address] [place] [address] 00079 Extra Greenon 03-03-2021 Tube Collected Yes Invalid Interpretation Code [facility] Comment on above: Performed By: #### 1 [id number], 82465728, 8427947062, 0661270796, 5520942, 7171481743 ####[facility] (DEFAULT)[address] [place] [address] 83564 Inpatient Patient Summaryon 03-03-2021 Inpatient Patient Summary [address] [address] Patient Discharge Instructions Name: ZAINA WINTERS Carmen : 1950 Patient Address: [address] [place] [address] Primary Care Provider: Name: Jeannine Hurley After you are discharged if you find you have any questions, please, call [phone] ext [phone] to speak to a nurse. Discharge Diagnosis: [...] alcohol and/or drug addiction problems; contact the [facility] 05/09 Crisis Hotline -Text 4HCKE to 027533. If you received any narcotics, sedation, or [...] decisions or sign any legal documents [facility] would like to thank you for allowing us to assist you with your healthcare needs. The following includes patient education materials and information regarding your injury/illness. ZAINA WINTERS has been given the following list of follow-up instructions, prescriptions, and patient education materials: Follow-up Instructions With: Address: When: Marina Redd [address] [place] [address] [address] [address] Business (1) 03/15/2021 10:30 AM With: Address: When: Jeannine Evangelista [address] [place] [address] Business (1) Medications During the course of [...] 0.5 mg oral (more content not included)... [facility]-03-2021 MAGR Postoperative Record MAGR Phase II Record Summary Primary Physician: DAVID AWAD Finalized Date/Time: 03/03/21 08:37:51 Pt. Name: ZAINA WINTERSO.B./Sex: 1950 MALE Med Rec #: [id number] Physician: DAVID AWAD Financial #: [id number] Pt. Type: O Room/Bed: [facility]/ Admit/Disch: 03/02/21 05:52:00 - Institution: Phase II [...] Comments: Phase II recovery done on 2 [facility], room 231 Finalized By: Vianca Celaya RN Document Signatures Signed By: Vianca Celaya RN 03/03/21 08:37 [facility] Nutrition Noteon 03-03-2021 Nutrition Note Pt admitted for scheduled Lt total knee surgery. Diet advanced to 3000kcal DM, along w/ usual post op vitamins/minerals and oral nutritional supplements; adjusted by teletypewriter installer to 2000kcal to better meet nutritional needs without overcompensating. Labs reviewed, BS 138-177mg/dl ideal post op. Pt at high nutrition risk r/t age greater than 65y, however, no immediate nutrition concerns at this time. Will monitor for changes. Normal [facility] Anesthesia Noteon 03-02-2021 Anesthesia Note Patient: ZAINA [...] on: 03/02/2021 12:40 EST] Dre Santos DO [facility] Anesthesia Note Patient: ZAINA WINTERS Age: 70 [...] = 20 mL, 100 mL/hr, IV Piggyback, Transportation Mechanic tranexamic acid: 1,000 mg = 100 mL, 300 mL/hr, IV Piggyback, Transportation Mechanic tranexamic acid: 1,000 mg = 100 mL, 300 mL/hr, IV Piggyback, Transportation Mechanic Documented Medications Documented Eliquis 5 mg oral [...] All Problems Atrial fibrillation / SNOMED CT 52102422 / Confirmed COVID-19 / SNOMED CT 2638715306 / Confirmed Diabetes / SNOMED CT 470992800 / Confirmed FH: hypertension / SNOMED CT 501126133 / Confirmed 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 Comments: 02/04/2021 10:08 Oliva Van RN surgery [...] review ECG interpretation: Normal sinus rhythm. Plan [employer]#(A ) physical status classification: Class III. Anesthetic Preoperative [...] EST] Aiden Santos (more content not included)... [facility] MAGR Intraoperative Recordon 03-02-2021 MAGR Intraoperative Record MAGR Intra-Op Record Summary Primary Physician: Finalized Date/Time: 03/02/21 08:23:07 Pt. Name: ZAINA WINTERS./Sex: 1950 MALE Med Rec #: [id number] Physician: DAVID AWAD Financial #: [id number] Pt. Type: D Room/Bed: / Admit/Disch: 03/02/21 [...] Draper, Lora RN Role Performed Anesthesiologist of Technical Expert Technical Expert Record Time In 03/02/21 07:33:00 03/02/21 07:33:00 [...] Canal Block Primary Procedure Yes Primary Surgeon Dre Santos DO Modifiers Left Surgeon Comment ADDUCTOR [...] Device Na (more content not included)... [facility] Record Summary Primary Physician: DAVID AWAD Finalized Date/Time: 03/02/21 13:11:26 Pt. Name: HEZAINA MCKEON./Sex: 1950 MALE Med Rec #: [id number] Physician: DAVID AWAD Financial #: [id number] Pt. Type: D Room/Bed: 231/1 Admit/Disch: 03/02/21 [...] Signed By: Rosy Gaxiola RN 03/02/21 13:[address] [facility]ordon 0 03-02-2021 MAGR Preoperative Record MAGR Pre-Op Record Summary Primary Physician: DAVID AWAD Finalized Date/Time: 03/02/21 08:24:03 Pt. Name: ZAINA WINTERS./Sex: 1950 MALE Med Rec #: [id number] Physician: DAVID AWAD Financial #: [id number] Pt. Type: D Room/Bed: / Admit/Disch: 03/02/21 [...] consent correct. General Comments: [facility] ambulatory. Pt has #7 pain in left knee, Pt denies cp, cough or flu like symptoms. Pt is sob with ambulation which is normal. Pt denies pacemaker/defibillat or or sleep apnea. Finalized By: Rita Molina RN Document Signatures Signed By: Rita Molina RN 03/02/21 08:24 Normal [facility] POCT Glucose Levelon 022 Glucose [Mass/Vol] 177 mg/dL High 74-118 [facility] Comment on above: Performed By: #### 4 [id number] #### [facility] (DEFAULT) [address] [place] [address] 83770 Glucose [Mass/Vol] 138 mg/dL High 74-118 [facility] Comment on above: Performed By: #### 4 [id number] ####[facility] (DEFAULT)[address] [place] [address] 024[address] Patient Handouton 03-02-2021 Patient Handout POST OPERATIVE [...] nearest hospital's emergency services department. Normal [facility] XR Knee One or Two Views Lef [...] 1:56 pm Technologist: Evelia ESCOBAR Normal [facility] 2019 Novel Coronavirus (CoVI D-19), JULISSA LCon 03-01-2021 SARS-CoV-2 (COVID-19) RNA JULISSA+probe Ql (Unsp spec) Not detected Invalid Interpretation Code Not Detected [facility] Comment on above: Order Comment: [id number] Result Comment: This nucleic acid amplification test was developed and its performance characteristics determined by [employer]. Nucleic acid amplification tests include RT- PCR [...] detected) result in this assay. Performed At: [address] [id number] Zay Landa PhD Ph:[phone] Performed By: #### 1 [id number], [id number], [id number] #### [facility] (DEFAULT) [address] [place] [address] Progress Note - Nurseon 02-13 Progress Note - Nurse Pre-op call for 03-02-2021 surgery made- patient informed of arrival time of 0600 tomorrow ,NPO after midnight except for any medication that he was instructed to take in morning, hibiclens shower x2-patient with understanding. [Electronically Signed on: 03/01/2021 09:42 EST] Rita Molina RN [Verified on: 03/01/2021 09:42 EST] Rita Molina RN [facility] Progress Note - Nurseon 01-14 Progress Note - Nurse PAT review done per Dr. Mccauley, no orders received. [Electronically Signed on: 02/08/2021 10:37 EST] Oliva Rabago RN [Verified on: 02/08/2021 10:37 EST] Oliva Rabago RN Normal [facility] .Auto Diff 02-04-2021 Auto [place] % 10 % Normal 1-12 [facility] Comment on above: Performed By: #### 1 [id number], [id number], [id number] ####[facility] (DEFAULT)[address] [place] [address] Baso Abs# 0.0 x10 Normal 0.0-0.2 [facility] Comment on above: Performed By: #### 1 [id number], [id number] ####[facility] (DEFAULT)[address] [place] [address] Basophils/100 WBC (Bld) 0.3 % Normal 0.2-2.0 [facility] Comment on above: Performed By: #### 1 [id number], [id number], [id number] ####[facility] (DEFAULT)[address] [place] [address] Eos Abs# 0.1 x10 Normal 0.0-0.4 [facility] Comment on above: Performed By: #### 1 [id number], [id number], [id number] ####[facility] (DEFAULT)[address] [place] [address] Eosinophils/100 WBC (Bld) 1.1 % Normal 0.9-4.0 [facility] Comment on above: Performed By: #### 1 [id number], [id number], [id number] ####[facility] (DEFAULT)[address] [place] [address] Lymph Abs# 2.0 x10 Normal 1.3-2.9 [facility] Comment on above: Performed By: #### 1 [id number], [id number], [id number] ####[facility] (DEFAULT)[address] [place] [address] Lymphocytes/100 WBC (Bld) 27 % Normal 14-48 [facility] Comment on above: Performed By: #### 1 [id number], [id number], [id number] ####[facility] (DEFAULT)[address] [place] [address] [place] Abs# 0.7 x10 Normal 0.0-0.8 [facility] Comment on above: Performed By: #### 1 [id number], [id number], [id number] ####[facility] (DEFAULT)[address] [place] [address] Neut Abs# 4.5 x10 Normal 1.5-9.2 [facility] Comment on above: Performed By: #### 1 [id number], [id number], [id number] ####[facility] (DEFAULT)[address] [place] [address] Neutrophils/100 WBC (Bld) 62 % Normal 44-88 [facility] Comment on above: Performed By: #### 1 [id number], [id number], [id number] ####[facility] (DEFAULT)[address] [place] [address] Standardon 02-04-2021 eGFR Non AA >60 Invalid Interpretation Code [facility] Comment on above: Performed By: #### 1 [id number], [id number], [id number] ####[facility] (DEFAULT)[address] [place] [address] eGFR AA >60 Invalid Interpretation Code [facility] Comment on above: Result Comment: Planning Feeder korina Kidney disease could be indicated at eGFRs of less than 60 ml/min/1.73m2. Kidney Failure is indicated at less than 15 ml/min/1.73m2 Performed By: #### 1 [id number], [id number], [id number] ####[facility] (DEFAULT)[address] [place] [address] Anion gap [Moles/Vol] 14.0 mmol/L Normal 5.0-19.0 [facility] Comment on above: Performed By: #### 1 [id number], [id number], [id number] ####[facility] (DEFAULT)[address] [place] [address] Calcium [Mass/Vol] 9.5 mg/dL Normal 8.9-10.3 [facility] Comment on above: Performed By: #### 1 [id number], [id number], [id number] ####[facility] (DEFAULT)[address] [place] [address]817 Chloride [Moles/Vol] 99 mmol/L Low 101-111 [facility] Comment on above: Performed By: #### 1 [id number], [id number], [id number] ####[facility] (DEFAULT)[address] [place] [address] 67276 CO2 [Moles/Vol] 28 mmol/L Normal 21-32 [facility] Comment on above: Performed By: #### 1 [id number], [id number], [id number] ####[facility] (DEFAULT)[address] [place] [address] 78298 Creatinine [Mass/Vol] 0.89 mg/dL Low 0.90-1.30 [facility] Comment on above: Performed By: #### 1 [id number], [id number], [id number] ####[facility] (DEFAULT)[address] [place] [address] 52740 Glucose [Mass/Vol] 135.0 mg/dL High 74.0-118.0 [facility] Comment on above: Performed By: #### 1 [id number], [id number], [id number] ####[facility] (DEFAULT)[address] [place] [address] 32952 Osmolality 278 mOsm/L Invalid Interpretation Code [facility] Comment on above: Performed By: #### 1 [id number], [id number], [id number] ####[facility] (DEFAULT)[address] [place] [address] 32578 Potassium [Moles/Vol] 4.1 mmol/L Normal 3.6-5.1 [facility] Comment on above: Performed By: #### 1 [id number], [id number], [id number] ####[facility] (DEFAULT)[address] [place] [address] 35091 Sodium [Moles/Vol] 137.0 mmol/L Normal 136.0-144.0 [facility] Comment on above: Performed By: #### 1 [id number], [id number], [id number] ####[facility] (DEFAULT)[address] [place] [address] 87049 Urea nitrogen [Mass/Vol] 19 mg/dL Normal 8-26 [facility] Comment on above: Performed By: #### 1 [id number], [id number], [id number] ####[facility] (DEFAULT)[address] [place] [address] Urea nitrogen/Creatinine [Mass ratio] 21.0 mg/mg High 4.6-16.2 [facility] Comment on above: Performed By: #### 1 [id number], [id number], [id number] ####[facility] (DEFAULT)[address] [place] [address] 87418 CBC w/ Auto Diffon Erythrocyte distribution width (RBC) [Ratio] 13.4 % Normal 11.5-15.0 [facility] Comment on above: Performed By: #### 1 [id number], [id number], [id number] ####[facility] (DEFAULT)[address] [place] [address] Hematocrit (Bld) [Volume fraction] 48.0 % Normal 34.8-51.9 [facility] Comment on above: Performed By: #### 1 [id number], [id number], [id number] ####[facility] (DEFAULT)[address] [place] [address] Hemoglobin (Bld) [Mass/Vol] 15.5 g/dL Normal 11.8-17.7 [facility] Comment on above: Performed By: #### 1 [id number], [id number], [id number] ####[facility] (DEFAULT)[address] [place] [address] 49584 Instr WBC 7.3 x10 Invalid Interpretation Code [facility] Comment on above: Performed By: #### 1 [id number], [id number], [id number] ####[facility] (DEFAULT)[address] [place] [address] 66965 Man Diff? Auto Normal [facility] Comment on above: Performed By: #### 1 [id number], [id number], [id number] ####[facility] (DEFAULT)[address] [place] [address] 22338 MCH (RBC) [Entitic mass] 30 pg Normal 24-34 [facility] Comment on above: Performed By: #### 1 [id number], [id number], [id number] ####[facility] (DEFAULT)[address] [place] [address] 89005 MCHC (RBC) [Mass/Vol] 32 g/dL Normal 26-37 [facility] Comment on above: Performed By: #### 1 [id number], [id number], [id number] ####[facility] (DEFAULT)[address] [place] [address] 59799 MCV (RBC) [Entitic vol] 94 fL Normal 81-100 [facility] Comment on above: Performed By: #### 1 [id number], [id number], [id number] ####[facility] (DEFAULT)[address] [place] [address] 20576 Platelet 196 x10 Normal 138-427 [facility] Comment on above: Performed By: #### 1 [id number], [id number], [id number] ####[facility] (DEFAULT)[address] [place] [address] 44484 Platelet mean volume (Bld) [Entitic vol] 10.3 fL High 6.3-10.2 [facility] Comment on above: Performed By: #### 1 [id number], [id number], [id number] ####[facility] (DEFAULT)[address] [place] [address] 95239 RBC 5.13 x10 Normal 3.70-5.30 [facility] Comment on above: Performed By: #### 1 [id number], [id number], [id number] ####[facility] (DEFAULT)[address] [place] [address] 55732 WBC 7.3 x10 Normal 3.5-10.5 [facility] Comment on above: Performed By: #### 1 [id number], [id number], [id number] ####[facility] (DEFAULT)[address] [place] [address] 17650 UA w Culture if Ind Standard on 02-04-2021 Breakpoint UA Normal [facility] Comment on above: Performed By: #### 1 [id number] #### [facility] (DEFAULT) [address] [place] [address] 16821 Color (U) Yellow Normal [facility] Comment on above: Performed By: #### 1 [id number] #### [facility] (DEFAULT) [address] [place] [address] 92174 Culture? No [facility] Comment on above: Result Comment: Resu lt created by rule GL_MAGR_ADD_UA_[id number] Result created by rule GL_MAGR_ADD_UA_CULT1 Performed By: #### 1 [id number] #### [facility] (DEFAULT) [address] [place] [address] 65358 Glucose (U) [Mass/Vol] Negative [facility] Comment on above: Performed By: #### 1 [id number] #### [facility] (DEFAULT) [address] [place] [address] 88295 Ketones Ql (U) Negative [facility] Comment on above: Performed By: #### 1 [id number] #### [facility] (DEFAULT) [address] [place] [address] 37863 Micro? Not Indicated [facility] Comment on above: Result Comment: Resu lt created by rule GL_MAGR_ADD_UA_MICRO Performed By: #### 1 [id number] #### [facility] (DEFAULT) [address] [place] [address] 92017 UA Bilirubin Negative Normal [facility] Comment on above: Performed By: #### 1 [id number] #### [facility] (DEFAULT) [address] [place] [address] 71654 UA Blood Negative Normal NEGATIVE [facility] Comment on above: Performed By: #### 1 [id number] #### [facility] (DEFAULT) [address] [place] [address] 64501 UA Clarity CLEAR Normal CLEAR [facility] Comment on above: Performed By: #### 1 [id number] #### [facility] (DEFAULT) [address] [place] [address] 78260 UA Leuk Est Negative Normal NEGATIVE [facility] Comment on above: Performed By: #### 1 [id number] #### [facility] (DEFAULT) [address] [place] [address] 95257 UA Nitrite Negative Normal NEGATIVE [facility] Comment on above: Performed By: #### 1 [id number] #### [facility] (DEFAULT) [address] [place] [address] 68321 UA pH 6.0 Normal 5-8 [facility] Comment on above: Performed By: #### 1 [id number] #### [facility] (DEFAULT) [address] [place] [address] 70760 UA Protein Negative Normal NEGATIVE [facility] Comment on above: Performed By: #### 1 [id number] #### [facility] (DEFAULT) [address] [place] [address] UA Spec Grav >=1.030 Normal 1.001-1.035 [facility] Comment on above: Performed By: #### 1 [id number] #### [facility] (DEFAULT) [address] [place] [address] 31081 UA Urobilinogen 0.2 mg/dL Normal 0.2-1.0 [facility] Comment on above: Performed By: #### 1 [id number] #### [facility] (DEFAULT) [address] [place] [address] Urine Source Clean Catch Normal [facility] Comment on above: Performed By: #### 1 [id number] #### [facility] (DEFAULT) [address] [place] [address] XR Bone Length Studies [facility] 02-04-2021 XR Bone Length Studies Scanograms EXAM: [...] significant leg length discrepancy. Final Dictated by: John Mckenna MD Dictated DT/TM: 02/08/21 6:18 Signed (Electronic Signature): John Mckenna MD 02/08/21 7:27 am Technologist: Abilio AMADOR [facility] Echo 2D w doppler w color co mpleteOrdered By: Ej Foster on 09-23-2020 [facility] Transthoracic Echocardiography Report (TTE) Patient Name SINGH Date of Study 09/23/2020 ZAINA Morales Date of 1950 Gender Male Age 69 year(s) Race Room Number Height: 72 inch, 182.88 cm Corporate ID [id number] Weight: 288 pounds, 130.6 kg # Patient Acct [id number] BSA: 2.49 m^2 BMI: 39.06 # kg/m^2 MR # [id number] Jumpbasting Armhole Baster Debi Lopez Interpreting Physician Ej Foster Referring Nurse Practitioner Interpreting Referring Physician Ej Foster Type of Study TTE procedure:2D Echocardiogram, M-Mode, Doppler, Color Doppler. Procedure Date Date: 09/23/2020 Start: 11:32 AM Study Location: [facility] Indications:Atrial fibrillation. History / Tech. Comments: Naty [...] when corrected for body surface area. Signature Electronically signed [facility] on 09/23/2020 05:26 PM FINDINGS Left Atrium The left atrium is [...] TR Velocity: 2.17 m/s Peak TR Gradient: 18.78758 mmHg Estimated RA Pressure: 3 mmHg Estimated PASP: 21.79 mmHg Diastology / Tissue Doppler Lateral Wall E' velocity:0.07 m/s Lateral Wall E/E':7.23 [facility] [place] [facility] Work Phone: Shankar, [facility] Incoming Cardio Results From [facility] - 09/23/2020 5:27 PM EDT [facility] Transthoracic Echocardiography Report (TTE) Patient Name HEBERLING Date of Study 09/23/2020 ZAINA Morales Date of 1950 Gender Male Age 69 year(s) Race Room Number Height: 72 inch, 182.88 cm Corporate ID [id number] Weight: 288 pounds, 130.6 kg # Patient Acct [id number] BSA: 2.49 m^2 BMI: 39.06 # kg/m^2 MR # [id number] Jumpbasting Armhole Baster Debi Lopez Interpreting Physician Ej Foster Fellow Referring Nurse Practitioner Interpreting Referring Physician Ej Foster Type of Study TTE procedure:2D Echocardiogram, M-Mode, Doppler, Color Doppler. Procedure Date Date: 09/23/2020 Start: 11:32 AM Study Location: [facility] Indications:Atrial fibrillation. History / Tech. Comments: Naty [...] body surface area. Signature - - - Electronically signed by [facility]) on 09/23/2020 05:26 PM - FINDINGS Left Atrium The left atrium [...] TR Velocity: 2.17 m/s Peak TR Gradient: 18.74266 mmHg Estimated RA Pressure: 3 mmHg Estimated PASP: 21.79 mmHg Diastology / Tissue Doppler Lateral Wall E' velocity:0.07 m/s Lateral Wall E/E':7.23 [facility] Work Phone: [facility] [employer] Phone: Basic Metabolic Panel 02-14 Anion gap [Moles/Vol] 10 mmol/L 9 - 17 mmol/L [place] Bun/Cre Ratio 21 [place] Calcium [Mass/Vol] 9.7 mg/dL 8.6 - 10. 4 mg/dL [place] Chloride [Moles/Vol] 101 mmol/L 98 - 10 7 mmol/L [place] CO2 [Moles/Vol] 28 mmol/L 20 - 31 mmol/L [place] Creatinine [Mass/Vol] 0.89 mg/dL 0.7 - 1.2 mg/dL [place] GFR >60 >60 mL/min [place] GFR Non- >60 >60 mL/min [place] Glucose [Mass/Vol] 101 mg/dL High 70 - 99 mg/dL [place] Interpretation and review of laboratory results Abnormal [place] Potassium [Moles/Vol] 4.3 mmol/L 3.7 - 5.3 mmol/L [place] Sodium [Moles/Vol] 139 mmol/L 135 - 144 mmol/L [place] Urea nitrogen [Mass/Vol] 19 mg/dL 8 - 23 mg/dL [place] Lipid Panelon 03-10-2020 Cholesterol [Mass/Vol] 162 mg/dL <200 [place] Comment on above: Cholesterol Guidelines: <200 Desirable 200-240 Borderline >240 Undesirable Cholesterol in HDL [Mass/Vol] 41 mg/dL >40 [place] Comment on above: HDL Guidelines: <40 Undesirable 40-59 Borderline >59 Desirable Cholesterol in LDL [Mass/Vol] 102 mg/dL 0 - 130 mg/dL [place] Comment on above: LDL Guidelines: <100 Desirable 100-129 Near to/above Desirable 130-159 Borderline >159 Undesirable Direct (measured) LDL and calculated LDL are not interchangeable tests. Cholesterol in VLDL [Mass/Vol] NOT REPORTED 1 - 30 mg/dL [place] Cholesterol.total/Ch olesterol in HDL [Mass ratio] 4 {ratio} <5 [place] Triglyceride [Mass/Vol] 97 mg/dL <150 [place] Comment on above: Triglyceride Guidelines: <150 Desirable 150-199 Borderline 200-499 High >499 Very high Based on AHA Guidelines for fasting triglyceride, November 2011. Metabolic Panelon 03-10-2020 GFR/1.73 sq M predicted among non-blacks MDRD (S/P/Bld) [Vol rate/Area] [place] Comment on above: Stage 1: Some [...] body mass. Additional eGFR calculator available at: http://www.Whitevector.Daixe/multiple_crcl_2012.htm Basic Metabolic Panelon 12-0 Anion gap [Moles/Vol] 9 mmol/L 9 - 17 mmol/L [place] Bun/Cre Ratio 16 [place] Calcium [Mass/Vol] 9.6 mg/dL 8.6 - 10. 4 mg/dL [place] Chloride [Moles/Vol] 101 mmol/L 98 - 10 7 mmol/L [place] CO2 [Moles/Vol] 29 mmol/L 20 - 31 mmol/L [place] Creatinine [Mass/Vol] 0.76 mg/dL 0.7 - 1.2 mg/dL [place] GFR >60 >60 mL/min [place] GFR Non- >60 >60 mL/min [place] Glucose [Mass/Vol] 118 mg/dL High 70 - 99 mg/dL [place] Interpretation and review of laboratory results Abnormal [place] Potassium [Moles/Vol] 4.7 mmol/L 3.7 - 5.3 mmol/L [place] Sodium [Moles/Vol] 139 mmol/L 135 - 144 mmol/L [place] Urea nitrogen [Mass/Vol] 12 mg/dL 8 - 23 mg/dL [place] CBCon 01-22-2020 Erythrocyte distribution width (RBC) [Ratio] 14.2 % 11.8 - 14.4 % [place] Hematocrit (Bld) [Volume fraction] 43.4 % 40.7 - 50.3 % [place] Hemoglobin (Bld) [Mass/Vol] 13.4 g/dL 13 - 17 g/dL [place] MCH (RBC) [Entitic mass] 28.9 pg 25.2 - 33.5 pg [place] MCHC (RBC) [Mass/Vol] 30.9 g/dL 28.4 - 34.8 g/dL [place] MCV (RBC) [Entitic vol] 93.7 fL 82.6 - 102.9 fL [place] Platelet mean volume (Bld) [Entitic vol] 9.9 fL 8.1 - 13.5 fL [place] Platelets (Bld) [#/Vol] 217 10*3/uL [place] RBC (Bld) [#/Vol] 4.63 10*6/uL 4.21 - 5.7 7 m/uL [place] WBC (Bld) [#/Vol] 0.0 10*3/uL 0.0 per 10 0 WBC [place] WBC (Bld) [#/Vol] 5.7 10*3/uL [place] ECHO Complete 2D W Doppler W Coloron 01-22-2020 [facility] Transthoracic Echocardiography Report (TTE) Patient Name SINGH Date of Study 01/22/2020 ZAINA Morales Date of 1950 Gender Male Age 69 year(s) Race Room Number Height: 73 inch, 185.42 cm Corporate ID [id number] Weight: 273 pounds, 123.8 kg # Patient Acct [id number] BSA: 2.46 m^2 BMI: 36.02 # kg/m^2 MR # [id number] Jumpbasting Armhole Baster Work,Nini Interpreting Physician Ej Foster Fellow Referring Nurse Practitioner Interpreting Referring Physician Ej Foster Type of Study TTE procedure:2D Echocardiogram, M-Mode, Doppler, Color Doppler. Procedure Date Date: 01/22/2020 Start: 09:22 AM Study Location: [facility] Indications:Atrial fibrillation, Dyspnea/SOB and History of COVID-19. [...] Wall E' velocity:0.11 m/s Lateral Wall E/E':6.91 [facility] [place] Shankar, [facility] Incoming Cardio Results From [facility] - 01/22/2020 5:08 PM EST [facility] Transthoracic Echocardiography Report (TTE) Patient Name SINGH Date of Study 01/22/2020 ZAINA Morales Date of 1950 Gender Male Age 69 year(s) Race Room Number Height: 73 inch, 185.42 cm Corporate ID [id number] Weight: 273 pounds, 123.8 kg # Patient Acct [id number] BSA: 2.46 m^2 BMI: 36.02 # kg/m^2 MR # [id number] Jumpbasting Armhole Baster Work,Nini Interpreting Physician Ej Foster Fellow Referring Nurse Practitioner Interpreting Referring Physician Ej Foster Fellow Type of Study TTE procedure:2D Echocardiogram, M-Mode, Doppler, Color Doppler. Procedure Date Date: 01/22/2020 Start: 09:22 AM Study Location: [facility] Indications:Atrial fibrillation, Dyspnea/SOB and History of COVID-19. [...] available for comparison. Signature - - - Electronically signed by [facility]) on 01/22/2020 05:08 PM - FINDINGS Left Atrium The left atrium [...] Wall E' velocity:0.11 m/s Lateral Wall E/E':6.91 [place] Hemoglobin A1Con 01-22-2020 Glucose [Mass/Vol] 123 mg/dL [place] Comment on above: The ADA and AACC rec ommend providing the estimated average glucose result to permit better patient understanding of their HBA1c result. HbA1c (Bld) [Mass fraction] 5.9 % 4 - 6 % [place] Metabolic Panelon 01-22-2020 GFR/1.73 sq M predicted among non-blacks MDRD (S/P/Bld) [Vol rate/Area] [place] Comment on above: Stage 1: Some [...] body mass. Additional eGFR calculator available at: http://www.Whitevector.Daixe/multiple_crcl_2012.htm Troponin Ion 01-22-2020 Troponin I.cardiac [Mass/Vol] NOT REPORTED [place] Troponin T.cardiac [Mass/Vol] NOT REPORTED <0.03 ng/mL [place] Troponin, High Sensitivity 15 ng/L 0 - 22 ng/L [place] Comment on above: High Sensitivity Troponin values cannot be compared with other Troponin methodologies. Patients with high levels of Biotin oral intake (i.e >5mg/day) may have falsely decreased Troponin levels. Samples collected within 8 hours of biotin intake may require additional information for diagnosis. BNPon 12-16-2019 Natriuretic peptide B (Bld) [Mass/Vol] 595.0 pg/mL Normal <=900.0 [facility] Comment on above: Performed By: #### T ROP, BNP, CMP, CRP #### [facility] [address] [place], [place] [address] Cheryl Zarina CBC AUTO DIFFon 12-16-2019 Basophils (Bld) [#/Vol] 0.0 103/ul Normal 0.0-0.1 [facility] Comment on above: Performed By: #### C BC #### [facility] [address] [place] [address] Cheryl Zarina Basophils/100 WBC (Bld) 0.1 % Critically low 0.2-2.0 [facility] Comment on above: Performed By: #### C BC #### [facility] [address] [place] [address] Cheryl Zarina Eosinophils (Bld) [#/Vol] 0.0 103/ul Normal 0.0-0.7 [facility] Comment on above: Performed By: #### C BC #### [facility] [address] [place] [address] Cheryl Zarina Eosinophils/100 WBC (Bld) 0.0 % Critically low 0.9-7.0 [facility] Comment on above: Performed By: #### C BC #### [facility] [address] [place] [address] Cheryl Zarina Erythrocyte distribution width (RBC) [Ratio] 12.9 % Normal 11.0-15.0 [facility] Comment on above: Performed By: #### C BC #### [facility] [address] [place] [address] Cheryl Zarina Hematocrit (Bld) [Volume fraction] 45.2 % Normal 42.0-54.0 [facility] Comment on above: Performed By: #### C BC #### [facility] [address] [id number] Cheryl Zarina Hemoglobin (Bld) [Mass/Vol] 15.1 g/dL Normal 14.0-18.0 [facility] Comment on above: Performed By: #### C BC #### [facility] [address] [id number] Cheryl Zarina IG # 0.06 10e3/ul Critically high 0.00-0.03 [facility] Comment on above: Performed By: #### C BC #### [facility] [address] [id number] Cheryl Zarina IG % 0.6 % Critically high 0.0-0.5 [facility] Comment on above: Performed By: #### C BC #### [facility] [address] [place], [place] [address] Cheryl Zarina Lymphocytes (Bld) [#/Vol] 1.0 103/ul Critically low 1.2-3.8 [facility] Comment on above: Performed By: #### C BC #### [facility] [address] [place], [place] [address] Cheryl Zarina Lymphocytes/100 WBC (Bld) 10.1 % Critically low 20.5-60.0 [facility] Comment on above: Performed By: #### C BC #### [facility] [address] [place], [place] [address] Cheryl Zarina MANUAL DIFF REQ NO Normal [facility] Comment on above: Performed By: #### C BC #### [facility] [address] [id number] Cheryl Zarina MCH (RBC) [Entitic mass] 30.0 pg Normal 25.9-34.0 [facility] Comment on above: Performed By: #### C BC #### [facility] [address] [place], [place] [address] Cheryl Zarina MCHC (RBC) [Mass/Vol] 33.4 g/dL Normal 29.9-35.2 [facility] Comment on above: Performed By: #### C BC #### [facility] [address] [place], [place] [address] Cheryl Zarina MCV (RBC) [Entitic vol] 89.7 fL Normal 80.0-94.0 [facility] Comment on above: Performed By: #### C BC #### [facility] [address] [place], [place] [address] Cheryl Zarina Monocytes (Bld) [#/Vol] 0.3 103/ul Normal 0.3-0.8 [facility] Comment on above: Performed By: #### C BC #### [facility] [address] [place], [place] [address] Cheryl Zarina Monocytes/100 WBC (Bld) 3.4 % Normal 1.7-12.0 [facility] Comment on above: Performed By: #### C BC #### [facility] [address] [id number] Cheryl Zarina Neutrophils (Bld) [#/Vol] 8.3 103/ul Critically high 1.4-6.5 [facility] Comment on above: Performed By: #### C BC #### [facility] [address] [place], [place] [address] Cheryl Zarina Neutrophils/100 WBC (Bld) 85.8 % Critically high 43.0-75.0 [facility] Comment on above: Performed By: #### C BC #### [facility] [address] [place] [address] Cheryl Zarina Platelet mean volume (Bld) [Entitic vol] 9.7 fL Normal 9.5-13.5 [facility] Comment on above: Performed By: #### C BC #### [facility] [address] [place], [place] [address] Cheryl Zarina Platelets (Bld) [#/Vol] 270 103/ul Normal 150-450 [facility] Comment on above: Performed By: #### C BC #### [facility] [address] [place], [place] [address] Cheryl Zarina RBC (Bld) [#/Vol] 5.04 106/ul Normal 4.70-6.10 [facility] Comment on above: Performed By: #### C BC #### [facility] [address] [place], [place] [address] Cheryl Srinivasan WBC (Bld) [#/Vol] 9.7 103/ul Normal 4.0-11.0 [facility] [facility] Comment on above: Performed By: #### C BC #### [facility] [address], [place] [address] Cheryl Srinivasan CRPon 12-16-2019 CRP [Mass/Vol] 12.3 mg/dL Critically high <=1.0 [facility] Comment on above: Performed By: #### C BC #### [facility] [address], [place] [address] Cheryl Srinivasan CTA CHEST WO W CONon [...] by: RUPESH ULRICH Date: 2019-12-16 05:43 Normal [facility] D-DIMERon 12-16-2019 D-DIMER COMMENTS SEE BELOW Normal [facility] Comment on above: Result Comment: Incr [...] By: #### D DIM, PT, PTT #### [facility] [address] [place] [address] Cheryl Srinivasan Fibrin D-dimer FEU IA (Bld) [Mass/Vol] 0.84 ug/mL Critically high 0.19-0.50 [facility] Comment on above: Result Comment: test repeated critcal value verified Performed By: #### D DIM, PT, PTT #### [facility] [address] [place] [address] Cheryl Srinivasan LACTATE/LACTIC ACIDon 2019 Lactate [Moles/Vol] 1.8 mmol/L Normal 0.7-2.0 [facility] Comment on above: Performed By: #### L ACT #### [facility] [address] [place] [address] Cheryl Srinivasan PROF 14(COMP METB)on 020 Albumin [Mass/Vol] 3.2 g/dL Critically low 3.5-5.0 [facility] Comment on above: Performed By: #### T ROP, BNP, CMP, CRP #### [facility] [address] [place] [address] Cheryl Srinivasan Albumin/Globulin [Mass ratio] 0.8 {ratio} Normal [facility] Comment on above: Performed By: #### T ROP, BNP, CMP, CRP #### [facility] [address] [place] [address] Cheryl Zarina ALP [Catalytic activity/Vol] 85 U/L Normal 38-126 [facility] Comment on above: Performed By: #### T ROP, BNP, CMP, CRP #### [facility] [address] [place] [address] Cheryl Zarina ALT [Catalytic activity/Vol] 63 U/L Normal 21-72 [facility] Comment on above: Performed By: #### T ROP, BNP, CMP, CRP #### [facility] [address] [place] [id number] Cheryl Zarina Anion gap [Moles/Vol] 14.2 mmol/L Normal [facility] Comment on above: Performed By: #### T ROP, BNP, CMP, CRP #### [facility] [address] [place] [address] Cheryl Zarina AST [Catalytic activity/Vol] 53 U/L Normal 17-59 [facility] Comment on above: Performed By: #### T ROP, BNP, CMP, CRP #### [facility] [address] [place] [address] Cheryl Zarina Bilirubin Ql (U) 1.0 mg/dL Normal 0.2-1.3 [facility] Comment on above: Performed By: #### T ROP, BNP, CMP, CRP #### [facility] [address] [place] [address] Cheryl Zarina Calcium [Mass/Vol] 9.0 mg/dL Normal 8.4-10.2 [facility] Comment on above: Performed By: #### T ROP, BNP, CMP, CRP #### [facility] [address] [place] [address] Cheryl Zarina Chloride [Moles/Vol] 96 mmol/L Critically low 98-107 [facility] Comment on above: Performed By: #### T ROP, BNP, CMP, CRP #### [facility] [address] [address] Cheryl Zarina CO2 [Moles/Vol] 25.8 mmol/L Normal 22.0-30.0 [facility] Comment on above: Performed By: #### T ROP, BNP, CMP, CRP #### [facility] [address] [place] [id number] Cheryl Zarina Creatinine [Mass/Vol] 0.90 mg/dL Normal 0.66-1.25 [facility] Comment on above: Performed By: #### T ROP, BNP, CMP, CRP #### [facility] [address] [place] [id number] Cheryl Zarina EGFR-AF TANZANIAN >60 Normal >=60 [facility] Comment on above: Performed By: #### T ROP, BNP, CMP, CRP #### [facility] [address] [place] [address] Cheryl Zarina EGFR-NON AF TANZANIAN >60 Normal >=60 [facility] Comment on above: Performed By: #### T ROP, BNP, CMP, CRP #### [facility] [address] [address] Cheryl Zarina Globulin (S) [Mass/Vol] 4.1 g/dL Normal [facility] Comment on above: Performed By: #### T ROP, BNP, CMP, CRP #### [facility] [address] [place] [address] Cheryl Zarina Glucose [Mass/Vol] 146 mg/dL Critically high 74-106 [facility] Comment on above: Performed By: #### T ROP, BNP, CMP, CRP #### [facility] [address] [place] [address] Cheryl Zarina Potassium [Moles/Vol] 4.0 mmol/L Normal 3.4-5.0 [facility] Comment on above: Performed By: #### T ROP, BNP, CMP, CRP #### [facility] [address] [place] [address] Cheryl Zarina Protein [Mass/Vol] 7.3 g/dL Normal 6.1-8.2 [facility] Comment on above: Performed By: #### T ROP, BNP, CMP, CRP #### [facility] [address] [place] [address] Cheryl Zarina Sodium [Moles/Vol] 132 mmol/L Critically low 137-145 [facility] Comment on above: Performed By: #### T ROP, BNP, CMP, CRP #### [facility] [address] [place] [address] Cheryl Zarina Urea nitrogen [Mass/Vol] 18.0 mg/dL Normal 9.0-20.0 [facility] Comment on above: Performed By: #### T ROP, BNP, CMP, CRP #### [facility] [address] [place] [address] Cheryl Zarina Urea nitrogen/Creatinine [Mass ratio] 20.0 mg/mg Normal [facility] Comment on above: Performed By: #### T ROP, BNP, CMP, CRP #### [facility] [address] [place], [place] [id number] Cheryljason Srinivasan PROTIMEon 12-16-2019 INR Coag (PPP) [Relative time] 0.97 {INR} Normal [facility] Comment on above: Performed By: #### D DIM, PT, PTT #### [facility] [address] [place] [address] Cheryl Zarina PT Coag (PPP) [Time] PLEASE NOTE: NORMAL RANGE CHANGE 10-31-2013 DUE TO REAGENT LOT CHANGE Normal [facility] Comment on above: Performed By: #### D DIM, PT, PTT #### [facility] [address] [place] [address] Cheryl Zarina PT Coag (PPP) [Time] 10.3 s Normal 9.0-11.6 [facility] Comment on above: Performed By: #### D DIM, PT, PTT #### [facility] [address] [place] [address] Cheryl Zarina PT Coag (PPP) [Time] SEE BELOW Normal [facility] Comment on above: Result Comment: CHEMO RED INR: 2.0 - 3.0 CONDITIONS NOT LISTED BELOW 2.5 - 3.5 FOR PROSTHETIC HEART VALVE REPLACEMENT 2.5 - 3.5 RECURRENT THROMBOSIS Performed By: #### D DIM, PT, PTT #### [facility] [address] [place] [address] Cheryl Zarina PTTon 12-16-2019 aPTT Coag (Bld) [Time] PLEASE NOTE: NORMAL RANGE CHANGE 01-07-2015 DUE TO REAGENT LOT CHANGE Normal [facility] Comment on above: Performed By: #### D DIM, PT, PTT #### [facility] [address] [place] [address] Cheryl Zarina aPTT Coag (Bld) [Time] 26.0 s Normal 22.3-36.2 [facility] Comment on above: Performed By: #### D DIM, PT, PTT #### [facility] [address] [place] [address] Cheryl Srinivasan Rapid Covid-19 PCRon 020 Compound Time LDT Info SEE BELOW Normal [facility] Comment on above: Result Comment: This test is not yet approved or cleared by the [place] Food and Drug Administration (FDA) . This test was developed by [employer], [place]. The performance characteristics of this test were validated by The [facility]. The results are not intended to be used as the sole means for clinical diagnosis or patient management decisions. The [facility] is authorized under Clinical Laboratory Improvement Amendments (CLIA) to perform high-complexity testing. When diagnostic testing is negative, the possibility of a false negative should be considered in the context of a patients recent exposures and the presence of clinical signs and symptoms consistent with SARS-CoV-2. Performed By: #### C VDRPD #### [facility] [address] [place] [address] Cheryl Srinivasan SARS-CoV-2 DETECTED NOT DETECTED [facility] Comment on above: Result Comment: . Performed By: #### C VDRPD #### [facility] [address] [place] [address] Cheryl Srinivasan TROPONIN - Ion 12-16-2019 Troponin I.cardiac [Mass/Vol] ng/mL Normal <=0.034 [facility] Comment on above: Performed By: #### C BC #### [facility] [address] [place] [address] Cheryl Srinivasan Troponin I.cardiac [Mass/Vol] SEE BELOW Normal [facility] Comment on above: Result Comment: <0.0 34 ng/ml NEGATIVE 0.034-0.119 INDETERMINATE 0.120 AMI CUT OFF Performed By: #### C BC #### [facility] [address] [place] [address] Cheryl Srinivasan Vital Signs Date Time Vital Sign Value Performing Clinician Ekta bland 02-12-2020 09:31-0500 Pulse Oximetry 98 % Ej [facility] , [place] 02-12-2020 09:30-0500 BP Diastolic 73 mm[Hg] Ej [facility] , [place] 02-12-2020 09:30-0500 BP Systolic 135 mm[Hg] Ej Melo [facility] [place] , [place] 02-12-2020 09:30-0500 Pulse (Heart Rate) 56 /min Ej Melo [facility] [place], [place] 02-12-2020 09:30-0500 Respiratory Rate 22 /min Ej Melo [facility] [place] 02-12-2020 07:14-0500 BMI (Body Mass Index) 36.89 kg/m2 Ej Melo [facility] [place], [place] 02-12-2020 07:14-0500 Body weight 123.38 kg Ej Melo [facility] , [place] 02-12-2020 07:14-0500 Height 182.9 cm Ej Melo [facility] [place] Encounters Encounter Date Encounter Type Care Provider Facility Start: 10-11-2023 End: 10-11-2023 ambulatory KENIA RONQUILLOJaredFITO Not Available Start: 09-19-2023 End: 09-19-2023 ambulatory KENIA RONQUILLOPFER Not Available Start: 09-18-2023 End: 09-18-2023 [facility] Start: 07-24-2023 End: 07-24-2023 ambulatory [facility] Start: 07-20-2023 End: 07-20-2023 ambulatory ARIANNA LOU Not Available Start: 07-18-2023 End: 07-18-2023 ambulatory KENIA KAMPFER Not Available Start: 06-19-2023 End: 06-19-2023 ambulatory BOBBY PINK Not Available Start: 06-14-2023 End: 06-30-2023 ambulatory DAVID AWAD JR [facility] Start: 06-09-2023 End: 06-09-2023 ambulatory KENIA VERONICA Not Available Start: 05-24-2023 End: 05-24-2023 ambulatory DAVID HENDRICKSON Not Available Start: 05-23-2023 End: 05-23-2023 ambulatory Marina Redd Facility:[facility] Start: 05-23-2023 End: 05-23-2023 ambulatory AWAIS Evangelista Work Phone: [facility] Work Phone: Start: 05-23-2023 End: 05-23-2023 Patient encounter procedure ARCADE TECHNICIAN-C Jeannine Moseleyk Work Phone: [facility] [address] Work Phone: Start: 05-11-2023 End: 05-11-2023 ambulatory ARCADE TECHNICIAN-C Jeannine Moseleyk Work Phone: [facility] Work Phone: Start: 05-11-2023 End: 05-11-2023 Patient encounter procedure ARCADE TECHNICIAN-C Jeannine Evangelista Work Phone: [facility] [address] Work Phone: Start: 04-24-2023 End: 04-24-2023 ambulatory MARINA Elysia REDD Not Available Start: 04-20-2023 End: 04-20-2023 [...] be covered. He gave a reference # [id number].) Start: 03-29-2023 Telephone encounter Yuliya lantigua PT [...] do so.) Start: 03-28-2023 Telephone encounter Maddie Latham [employer]OP MAKER MACHINE [facility] Comment on above: re: PT today (Called and noted auth is still pending for PT and in need to cx today; I informed I will keep up-to-date come his next on 03/30.) Start: 03-23-2023 [employer] Yuliya kinney PT Work Phone: [facility] Start: 03-23-2023 [employer] flowsheet Yuliya kinney PT Work Phone: [facility] [...] Available Start: 05-03-2022 End: 05-04-2022 ambulatory EJ Melo [facility] Start: 09-23-2020 End: 09-23-2020 Subsequent hospital visit by physician [facility] Echo Room [facility] Echocardiography Comment on above: Persistent atrial fi brillation (HCC); SOB (shortness of breath); Essential hypertension; Other specified diabetes mellitus with other specified complication, unspecified whether intermediate insulin use (HCC); Class 2 obesity with body mass index (BMI) of 36.0 to 36.9 in adult, unspecified obesity type, unspecified whether serious comorbidity present; Pain in both lower extremities Start: 03-10-2020 End: 03-12-2020 Subsequent hospital visit by physician [facility] Vascular Imaging Room [facility] Laboratory Comment on above: Controlled type 2 di abetes mellitus with hyperglycemia, without long-term current use of insulin (HCC); Persistent atrial fibrillation (HCC); SOB (shortness of breath); Essential hypertension; Other specified diabetes mellitus with other specified complication, unspecified whether intermediate insulin use (HCC); Class 2 obesity with body mass index (BMI) of 36.0 to 36.9 in adult, unspecified obesity type, unspecified whether serious comorbidity present; COVID-19; Fluid retention; Pain in both lower extremities Pain in both lower e xtremities; PVD (peripheral vascular disease) (HCC) Start: 02-12-2020 End: 02-12-2020 Subsequent hospital visit by physician Ej Foster Work Phone: [facility] ICU Comment on above: Arrived Start: 01-22-2020 End: 01-22-2020 Subsequent hospital visit by physician [facility] Echo Room [facility] Echocardiography Comment on above: Persistent atrial fi brillation (HCC); Essential hypertension; SOB (shortness of breath); Fluid retention; Other specified diabetes mellitus with other specified complication, unspecified whether color coater insulin use ([facility]); Class 2 obesity with body mass index (BMI) of 36.0 to 36.9 in adult, unspecified obesity type, unspecified whether serious comorbidity present Start: 12-16-2019 End: 12-16-2019 [facility] encounter procedure [facility] [place]: Start: 12-11-2019 End: 12-11-2019 Subsequent hospital visit by physician [facility] Covid Screening Schedule [facility] Covid Screening Comment on above: Arrived Procedures [...] 2d w/wom-mode compl spec&colr d Ej Foster Work Phone: Start: 12-16-2019 End: 12-16-2019 Microscopic examination of blood, culture [facility] Comment on above: Performed By: #### B [id number] #### [facility] [address] [place] [address] Cheryl Srinivasan Performed By: #### C BC #### [facility] [address], [place] [address] Cheryl Srinivasan Plan of Treatment Date Care Activity Detail Author Start: 11-28-2028 DTaP/Tdap/Td vaccine (2 - Td or Tdap) DTaP/Tdap/Td vaccine (2 - Td or Tdap) [employer] Work Phone: Start: 11-28-2028 DTaP/Tdap/Td vaccine (2 - Td) DTaP/Tdap/Td vaccine (2 - Td) [facility] [email or web address] Start: 03-04-2024 End: 03-04-2024 Patient encounter procedure 03/04/2024 1:00 PM EST Office Visit [facility] [address] [facility] [address] [place] [id number] Marina Redd PA [address] [facility] [address] [place] [address] [facility] Start: 12-03-2023 Medicare Annual Wellness (AWV) Medicare Annual Wellness (AWV) [facility] Start: 06-14-2023 End: 06-14-2023 Patient encounter procedure 06/14/2023 1:30 PM EDT Procedure Visit [facility] [address] [place] [id number] Arianna Lou DPM [address] [place] [address] [facility] Start: 06-09-2023 End: 06-09-2023 Patient encounter procedure 06/09/2023 1:00 PM EDT Office Visit [facility] [address] [facility] [id number] Kenia Castillo, ARCADE TECHNICIAN [address] [facility] [address] [facility] Start: 04-17-2023 End: 04-17-2023 Patient encounter procedure 04/17/2023 1:30 PM EST Office Visit [facility] [address] [place] [address] Marina Redd, PA [address] [place] [address] [facility] Start: 04-13-2023 End: 04-13-2023 ambulatory 04/13/2023 1:00 PM EST Treatment [facility] [address] [place] [address] Yuliya Romero, PT [address] [place] [address] [facility] Start: 04-11-2023 End: 04-11-2023 ambulatory 04/11/2023 1:00 PM EST Treatment [facility] [address] [place] [address] Maddie Latham, FLAVIO [facility] Start: 04-06-2023 End: 04-06-2023 ambulatory 04/06/2023 2:00 PM EST Treatment [facility] [address] [place] [address] Maddie Latham, HOOP MAKER MACHINE [facility] Start: 04-05-2023 End: 04-05-2023 ambulatory 04/05/2023 1:00 PM EST Treatment [facility] [address] [place] [address] Valerie Argueta, PT [facility] Start: 04-04-2023 End: 04-04-2023 ambulatory 04/04/2023 1:00 PM EST Treatment [facility] [address] [place] [address] Maddie Latham, HOOP MAKER MACHINE [facility] Start: 03-30-2023 End: 03-30-2023 ambulatory 03/30/2023 2:00 PM EST Treatment [facility] [address] [facility] [address] [place] [address] Maddie Latham, HOOP MAKER MACHINE [facility] Start: 03-28-2023 End: 03-28-2023 ambulatory 03/28/2023 1:30 PM EST Treatment [facility] [address] [facility] [address] [place] [address] Maddie Latham, HOOP MAKER MACHINE [facility] Start: 03-23-2023 End: 03-23-2023 ambulatory 03/23/2023 1:00 PM EST Evaluation [facility] [address] [facility] [address] [place] [address] Yuliya Romero, PT [address] [place] [address] Left thigh pain; Muscle strain of left thigh, subsequent encounter [facility] Comment on above: Left thigh pain; Muscle strain of left thigh, subsequent encounter Start: 01-31-2023 Hemoglobin A1c measurement Diabetes: Hemoglobin A1C [facility] Start: 12-02-2022 Glaucoma screening Diabetes: Retinopathy Screening [facility] Start: 09-30-2021 End: 09-30-2021 Patient encounter procedure 09/30/2021 Office Visit Cardiology Ej Foster MD [address] [place] [address] [phone] [facility] Start: 03-10-2021 Creatinine measurement Creatinine monitoring [facility] [email or web address] Start: 03-10-2021 HbA1c (Bld) [Mass fraction] A1C test (Diabetic or Prediabetic) [place] Start: 03-10-2021 Hemoglobin A1c measurement A1C test (Diabetic or Prediabetic) [facility] [employer] Phone: Start: 03-10-2021 Lipid panel Lipid screen [place] Start: 03-10-2021 Potassium monitoring Potassium monitoring [place] Start: 01-21-2021 Creatinine measurement Creatinine monitoring [facility] [email or web address] Start: 01-21-2021 HbA1c (Bld) [Mass fraction] A1C test (Diabetic or Prediabetic) [place] Start: 01-21-2021 Potassium monitoring Potassium monitoring [place] Start: 10-14-2020 Influenza vaccination Flu vaccine (#1) [facility] [employer] Phone: Start: 09-16-2020 End: 09-16-2020 Office Visit 09/16/2020 Office Visit Cardiology Ej Foster MD [address] [place] [address] [phone] [facility] Start: 03-10-2020 End: 03-10-2020 Office Visit 03/10/2020 Office Visit Cardiology Ej Foster MD [address] [place] [address] [phone] [facility] Start: 02-21-2020 End: 02-21-2020 Office Visit 02/21/2020 Office Visit Cardiology Ej Foster MD [address] [place] [address] [phone] [facility] Start: 01-30-2020 End: 01-30-2020 Office Visit 01/30/2020 Office Visit Cardiology Ej Foster MD [address] [place] [address] [place] [address] [facility] Start: 12-11-2019 Annual Wellness Visit (AWV) Annual Wellness Visit (AWV) [place] Start: 10-15-2019 Influenza vaccination Flu vaccine (#1) [place] Start: 2013 Pneumococcal 65+ years Vaccine (1 of 1 - PPSV23) Pneumococcal 65+ years Vaccine (1 of 1 - PPSV23) [place] Start: 2013 Pneumococcal 65+ years Vaccine (2 of 2 - PPSV23) Pneumococcal 65+ years Vaccine (2 of 2 - PPSV23) [place] Start: 07-17-2012 Shingles Vaccine (2 of 3) Shingles Vaccine (2 of 3) [place] Start: 1998 Screening for malignant neoplasm of colon Colon cancer screen colonoscopy [place] Start: 1998 Shingles Vaccine (1 of 2) Shingles Vaccine (1 of 2) [place] Start: 1993 Screening for malignant neoplasm of colon Colon cancer screen colonoscopy [facility] [place] [facility] Work Phone: Start: 1988 Lipid panel Lipid screen [place] Start: 10-04-1967 DTaP/Tdap/Td vaccine (1 - Tdap) DTaP/Tdap/Td vaccine (1 - Tdap) [place] Start: 1966 Diabetic microalbuminuria test Diabetic microalbuminuria test [place] Start: 1958 Diabetic foot examination Diabetic foot exam [place] Start: 1958 Diabetic retinal exam Diabetic retinal exam [place], [place] Start: 1958 Lipid panel Lipid screen [place] Start: 1948 Creatinine measurement Creatinine monitoring [place], [place] Start: 1948 Hepatitis C screening Hepatitis C screen [place], [place] Start: 1948 Potassium monitoring Potassium monitoring [place], [place] Start: 1948 Screening for malignant neoplasm of colon [facility] End: 02-12-2020 Catheterization and angiography procedure details panel Diagnostic Cardiac Sub Acute Care Nurse Procedure Cardiac Cath Routine One Time for 1 Occurrences starting 02/12/2020 until 02/12/2020 [place] Comment on above: One Time for 1 Occurrences starting 01/15 until 02/12/2020 Continuous pulse oximetry Pulse oximetry, continuous Respiratory Care Routine Every 4hr until discontinued starting 02/12/2020 [place] Comment on above: Every 4hr until discontinued starting End: 12-11-2019 Covid-19 Ambulatory Covid-19 Ambulatory Lab Routine Once for 1 Occurrences starting 12/11/2019 until 12/11/2019 [place] Comment on above: Once for 1 Occurrences starting 12/11/19 20 until 12/11/2019 Covid-19 Ambulatory Covid-19 Amb ulatory Lab Routine 12/11/2019 2:27 PM EDT [place] EKG 12 Lead EKG 12 Lead ECG Routine 02/12/2020 8:26 AM EST [place] End: 02-12-2020 End Tidal CO2 Continuous End Tidal CO2 Continuous Respiratory Care Routine Continuous until discontinued starting 02/12/2020 [place] Comment on above: Continuous until discontinued starting 1 End: 03-10-2020 HbA1c (Bld) [Mass fraction] Hemoglobin A1C Lab Routine Controlled type 2 diabetes mellitus with hyperglycemia, without long-term current use of insulin ([facility]) 1 Occurrences starting 03/10/2020 until 03/10/2020 [place] [place] Comment on above: 1 Occurrences starting 03/10/2020 until 03/10/2020 HbA1c (Bld) [Mass fraction] Hemoglobin A1C Lab Routine Controlled type 2 diabetes mellitus with hyperglycemia, without long-term current use of insulin ([facility]) 03/10/2020 12:35 PM EST [place] Oxygen therapy [[facility] Data Set] Initiate Oxygen Therapy Protocol Respiratory Care Routine Daily until discontinued starting 02/12/2020 [place] Comment on above: Daily until discontinued starting 2019 End: 03-10-2020 VL LOWER EXTREMITY ARTERIAL SEGMENTAL PRESSURES W PPG VL LOWER EXTREMITY ARTERIAL SEGMENTAL PRESSURES W PPG Imaging STAT Pain in both lower extremities PVD (peripheral vascular disease) ([facility]) 1 Occurrences starting 03/10/2020 until 03/10/2020 [place] Comment on above: 1 Occurrences starting 03/10/2020 until 03/10/2020 VL LOWER EXTREMITY ARTERIAL SEGMENTAL PRESSURES W PPG VL LOWER EXTREMITY ARTERIAL SEGMENTAL PRESSURES W PPG Imaging STAT Pain in both lower extremities PVD (peripheral vascular disease) ([facility]) 03/10/2020 1:24 PM EST [place] Immunizations Immunization Date Immunization Notes Care Provider Solis contreras 12-02-2022 pneumococcal polysaccharide vaccine, 23 valent Yuliya Romero PT Work Phone: [facility] 11-01-2022 influenza, high dose seasonal, preservative-free Yuliya Romero PT Work Phone: [facility] 11-01-2021 Influenza, Seasonal, Quadrivalent, Adjuvanted Yuliya Romero PT Work Phone: [facility] 11-01-2021 SARS-COV-2 (COVID-19 ) vaccine, mRNA, spike protein, LNP, bivalent, preservative free, 30 mcg/0.3 mL dose, mauro-sucrose formulation Yuliya Romero PT Work Phone: [facility] 11-01-2021 SARS-CoV-2, Unspecified Jamie Romero PT Work Phone: [facility] 10-30-2021 Influenza, High-dose Seasonal, Quadrivalent, Preservative Free Yuliya Romero PT Work Phone: [facility] 11-12-2020 Influenza, High-dose Seasonal, Quadrivalent, Preservative Free Yuliya Romero PT Work Phone: [facility] 11-11-2020 Influenza, High-dose Seasonal, Quadrivalent, Preservative Free Yuliya Romero PT Work Phone: [facility] 09-29-2021 Pfizer Purple Cap SARS-CoV-2 Vaccination Yuliya Romero PT Work Phone: [facility] 04-12-2020 Pfizer Purple Cap SARS-CoV-2 Vaccination Yuliya Romero PT Work Phone: [facility] 03-19-2020 Pfizer Purple Cap SARS-CoV-2 Vaccination Yuliya Romero PT Work Phone: [facility] 11-28-2019 influenza, injectabl e, quadrivalent, preservative free Yuliya Heather PT Work Phone: [facility] 11-28-2018 influenza, injectabl e, quadrivalent, preservative free Yuliya Heather PT Work Phone: [facility] 11-28-2018 tetanus toxoid, redu hiral diphtheria toxoid, and acellular pertussis vaccine, adsorbed Yuliyamiguel Romero PT Work Phone: [facility] 11-27-2018 influenza, high dose seasonal, preservative-free Yuliya Heather PT Work Phone: [facility] 11-27-2017 influenza, high dose seasonal, preservative-free Yuliya Heather PT Work Phone: [facility] 11-27-2017 Influenza, High-dose Seasonal, Quadrivalent, Preservative Free Yuliya Heather PT Work Phone: [facility] 11-22-2016 influenza, injectabl e, quadrivalent, contains preservative Yuliya Heather PT Work Phone: [facility] 11-22-2016 influenza, injectabl e, quadrivalent, preservative free Yuliya Heather PT Work Phone: [facility] 07-29-2015 pneumococcal conjuga te vaccine, 13 valent Yuliya Romero PT Work Phone: [facility] 01-21-2015 influenza, seasonal, injectable, preservative free Yuliya Heather PT Work Phone: [facility] 12-11-2013 influenza, injectabl e, quadrivalent, preservative free Yuliya Romero PT Work Phone: [facility] 03-13-2013 influenza, seasonal, injectable Yuliya Romero PT Work Phone: [facility] 03-13-2013 influenza, seasonal, injectable, preservative free Yuliya Romero PT Work Phone: [facility] 03-13-2013 pneumococcal polysaccharide vaccine, 23 valent Yuliya Romero PT Work Phone: [facility] 05-22-2012 zoster vaccine, live Yuliya Romero PT Work Phone: [facility] 02-02-2012 influenza, seasonal, injectable Yuliya Romero PT Work Phone: [facility] Payers Date Payer Category Payer Self-pay 2023 Medicare [id number] 2023 Medicare [id number] 2023 Unknown [id number] 1959 Medicare [id number] 1.2 .[id number] 1959 Unknown [id number] 1948 Unknown [id number] 2.16.84 0.1.770708.3.579.2.593 1948 Unknown [id number] 2.16.8 40.1.889616.3.579.2.173 1948 Unknown [id number] 2.16.8 40.1.004062.3.579.2.1286 1948 Unknown [id number] 2.16.8 40.1.074347.3.579.2.1286 1948 Unknown [id number] 2.16.8 40.1.277094.3.579.2.1286 1948 Unknown [id number] 2.16. 840.1.006630.3.579.2.196 1948 Unknown [id number] 2.16. 840.1.279866.3.579.2.196 1948 Unknown [id number] 2.16.84 0.1.376136.3.579.2.1259 1948 Unknown [id number] 2.16.84 0.1.323215.3.579.2.1259 1948 Unknown [id number] 2.16.84 0.1.420271.3.579.2.1259 1948 Unknown [id number] 2.16.84 0.1.153105.3.579.2.1259 1948 Unknown [id number] 2.16.84 0.1.457365.3.579.2.1259 1948 Unknown [id number] 2.16.84 0.1.243209.3.579.2.1259 1948 Unknown [id number] 2.16.84 0.1.832510.3.579.2.1259 1948 Unknown [id number] 2.16.84 0.1.455802.3.579.2.1259 1948 Unknown [id number] 2.16.84 0.1.320846.3.579.2.1259 1948 Unknown [id number] 2.16.84 0.1.341692.3.579.2.1259 1948 Unknown [id number] 2.16.84 0.1.765757.3.579.2.1259 1948 Unknown [id number] 2.16.84 0.1.417095.3.579.2.1259 1948 Unknown [id number] 2.16.84 0.1.426725.3.579.2.1259 1948 Unknown [id number] 2.16.84 0.1.189390.3.579.2.1259 1948 Unknown [id number] 2.16.84 0.1.389916.3.579.2.1259 1948 Unknown [id number] 2.16.84 0.1.124712.3.579.2.1259 1948 Unknown [id number] 2.16.84 0.1.788857.3.579.2.1259 1948 Unknown [id number] 2.16.84 0.1.277690.3.579.2.1259 1948 Unknown [id number] 2.16.84 0.1.524195.3.579.2.1259 1948 Unknown [id number] 2.16.84 0.1.804242.3.579.2.1259 1948 Unknown [id number] 2.16.84 0.1.578653.3.579.2.1259 Unknown [id number] 2.16.8 40.1.369546.3.579.2.531 Social History Date Type Detail Facility Tobacco smoking stat [facility] Unknown if ever smoked [place], [place] Start: 1950 Sex Assigned At Not on file [place] Start: 01-22-2020 End: 08-02-2022 Tobacco smoking status NHIS [place]oker [place] Start: 01-22-2020 End: 08-02-2022 Tobacco use and exposure Never used [place] Start: 03-10-2020 End: 03-14-2023 Alcohol intake Current drinker of alcohol (finding) [place] Start: 02-12-2020 Alcohol Comment having had sin ce December [place], [place] Exposure to SARS-CoV -2 (event) Not sure [place] Start: 09-16-2020 End: 12-02-2022 Alcohol intake [employer] Phone: Start: 12-02-2022 End: 03-14-2023 Tobacco use panel [facility] Start: 10-25-2022 Alcohol Comment drinks alcohol 2-3 times a week [facility] Start: 1950 Sex Assigned At Male F [facility] Clinical Notes 09-23-2020 to 03-30-2023 Telephone Encounter - Marjorie Thayer - 03/30/2023 1:17 PM [facility] 1:17 PM ESTTelephone Encounter - [facility] - 03/30/2023 12:51 PM EST Note Date & Type Note Facility 03-30-2023 Telephone encount er Note 04/05 @ 1:00 pm . [facility] 03-30-2023 Miscellaneous Notes Formattin g of this note might be different from the original. 04/05 @ 1:00 pm . So that reference # does nothing? His eval was 2/8, and is it noted per [facility] to continue, auth is needed? Would it be ok to schedule? documented in this encounter [facility] 03-30-2023 Telephone encount er Note So that reference # does nothing? His eval was 2/8, and is it noted per [facility] to continue, auth is needed? [facility] 03-30-2023 Telephone encount er Note Would it be ok to schedule? [facility] 03-29-2023 Telephone encount er Note Pt cx PT out. [facility] 03-29-2023 Miscellaneous Notes Formattin g of this note might be different from the original. Pt cx PT out. documented in this encounter [facility] 09-20-2021 Note [id number]#1.00[facility] 09-20-2021 Note [id number]#1.00[facility] 09-18-2021 Note Education Materials POST OPERATIVE TOTAL [...] the nearest hospital's emergency services department. [facility] 09-18-2021 Note [facility] Clinical Discharge Summary PERSON INFORMATION Name ZAINA WINTERS Age 70 Years 1950 Sex MALE Language Brazilian PCP Jeannine Hurley Marital Status Med Service Observation Acct# Arrival 09/17/2021 08:03:00 Visit Reason SURGERY-RIGHT TOTAL KNEE (GABRIELA) Acuity LOS 000 26:09 Address: [address] [place], [place] [id number] Comment: PROVIDER INFORMATION VITALS INFORMATION Vital Sign [...] range between ( 1.3 and 2.9 ) [place] Abs#: 1.3 x103/mcL -- Normal range between ( 0.0 and 0.8 ) Auto Baso %: 0.0 % -- Normal range between ( 0.2 and 2.0 ) Auto [place] %: 9 % -- Normal range between [...] Follow up: With: Address: When: Marina Redd [address] [place] [address], [address] [place] [address] Business (1) 10/01/2021 11:00 AM DIAGNOSIS Acute pain of right knee Comment: PHYS DOC NOTES [facility] 03-04-2021 Note [id number]#1.00[facility] 03-04-2021 Note [id number]#1.[facility] 03-04-2021 Note [id number]#1.00[facility] 03-03-2021 Note Education Materials POST OPERATIVE TOTAL [...] #8 follow up in office with physician tourist information assistant Justo Redd as scheduled #9 [facility] [...] the nearest hospital's emergency services department. [facility] 03-03-2021 Note [facility] Clinical Discharge Summary PERSON INFORMATION Name ZAINA WINTERS Age 70 Years 1950 Sex MALE Language Brazilian PCP Jeannine Hurley Marital Status Med Service Observation Acct# Arrival 03/02/2021 05:52:00 Visit Reason SURGERY - LEFT TOTAL KNEE POSSIBLE STEMS AND AUGS - NEX GEN TIBIA Acuity LOS 000 26:57 Address: [address] [place] [id number] Comment: PROVIDER INFORMATION VITALS INFORMATION Vital Sign [...] range between ( 1.3 and 2.9 ) [place] Abs#: 1.9 x103/mcL -- Normal range between ( 0.0 and 0.8 ) Auto Baso %: 0.0 % -- Normal range between ( 0.2 and 2.0 ) Auto [place] %: 10 % -- Normal range between [...] range between ( 74 and 118 ) [facility] Order 03/03/2021 4:47 AM Tube Collected: Yes Diagnostic Radiology 03/02/2021 12:32 PM XR Knee One or Two Views Left: XR Knee One or Two Views Left Radiology Report 03/02/2021 1:56 PM Radiology Report: Radiology Report DIET & ACTIVITY Patient Activity Level: As Tolerated Patient Diet: Regular Patient Activity Restrictions: Discontinue Alcohol Use DISCHARGE INFORMATION Discharge Disposition: Discharge Location: DEPART REASON INCOMPLETE INFORMATION PATIENT EDUCATION INFORMATION Instructions: [place] Total Hip/Knee/DVT (Clinic) (CUSTOM) Follow up: With: Address: When: Marina Redd [address] [facility] [address] [place], [place] [address] Business (1) 03/15/2021 10:30 AM With: Address: When: Jeannine Evangelista [address] [place] [address] Business (1) DIAGNOSIS Aftercare following left knee joint rep (more content not included)... [facility] 09-23-2020 History of Presen t illness Narrative Instructed on policies and procedures. documented in this encounter [employer] Phone: Evaluation note Diagnosis Persistent atrial fibrillation (HCC) Atrial fibrillation SOB (shortness of breath) Shortness of breath Essential hypertension Unspecified essential hypertension Other specified diabetes mellitus with other specified complication, unspecified whether color coater insulin use (HCC) Class 2 obesity with body mass index (BMI) of 36.0 to 36.9 in adult, unspecified obesity type, unspecified whether serious comorbidity present Pain in both lower extremities documented in this encounter [employer] Phone: evaluation note* Diagnosis Left thigh pain- Primary Pain in soft tissues of limb Muscle strain of left thigh, subsequent encounter documented in this encounter [facility] noteNo assessment information availableK[facility] Work Phone: Reason for visit Narrative* Consultation (Routine) - Pending Review Specialty Diagnoses / Procedures Referred By Jamal hwang Referred To Contact Physical Therapy Diagnoses Left thigh pain Muscle strain of left thigh, subsequent encounter Procedures MI OFFICE/OUTPATIENT NEW HIGH MDM 60 MINUTES Marina Redd PA [address] [facility] [address] [place] [address] Yuliya Romero PT [address] [facility] [address] [place] [address] Referral ID Status Reason Start Date Expiration Date Visits Requested Visits Authorized [id number] Pending Review Consult and Treat 03/23/2023 03/09/2024 1 1 [facility] Summary Purpose Family History No Family [...] Date/ Time Advance Directives No May 04, 2 024 4:36pm Reason for Referral Status Reason Specialty Diagnoses / Procedures Referred By Contact Referred To Contact Closed Cardiology / Echocardiography Diagnoses Persistent atrial fibrillation (HCC) Essential hypertension SOB (shortness of breath) Fluid retention Other specified diabetes mellitus with other specified complication, unspecified whether intermediate insulin use (HCC) Class 2 obesity with body mass index (BMI) of 36.0 to 36.9 in adult, unspecified obesity type, unspecified whether serious comorbidity present Procedures ECHO Complete 2D W Doppler W Color Ej Foster MD [address] [place] [phone] [facility] Echo [address] [place] [address] Status Reason Specialty Diagnoses / Procedures Referre d By Contact Referred To Contact Closed Radiology Diagnoses Pain in both lower extremities PVD (peripheral vascular disease) ([facility]) Procedures VL LOWER EXTREMITY ARTERIAL SEGMENTAL PRESSURES W PPG Ej Foster MD [address] [place] [address] [place] [address] Status Reason Specialty Diagnoses / Procedures Referre d By Contact Referred To Contact Closed Cardiology Diagnoses Persistent atrial fibrillation (HCC) SOB (shortness of breath) Essential hypertension Other specified diabetes mellitus with other specified complication, unspecified whether intermediate insulin use (HCC) Class 2 obesity with body mass index (BMI) of 36.0 to 36.9 in adult, unspecified obesity type, unspecified whether serious comorbidity present Pain in both lower extremities Procedures Echo 2D w doppler w color complete Ej Foster MD [address] [place] [address] [place] [address] History of Present Illness * Nini Todd - 01/22/2020 11:30 AM EST Explained policies and procedures of an echocardiogram/Doppler study. documented in this encounter* Arianna Allen RN - 02/12/2020 9:42 AM EST Acute Care Clinical Nurse Specialist reviewed discharge instructions with patient and spouse. Both verbalized understanding. Denies questions. Copy of discharge instructions given to patient. documented in this encounter Assessments Diagnosis Persistent atrial fibrillation (HCC) Atrial fibrillation Essential hypertension Unspecified essential hypertension SOB (shortness of breath) Shortness of breath Fluid retention Other fluid overload Other specified diabetes mellitus with other specified complication, unspecified whether intermediate insulin use (HCC) Class 2 obesity with body mass index (BMI) of 36.0 to 36.9 in adult, unspecified obesity type, unspecified whether serious comorbidity present Diagnosis Persistent atrial fibrillation (HCC) Atrial fibrillation Essential hypertension Unspecified essential hypertension SOB (shortness of breath) Shortness of breath Fluid retention Other fluid overload Other specified diabetes mellitus with other specified complication, unspecified whether color coater insulin use (HCC) Class 2 obesity with [...] mellitus with other specified complication, unspecified whether color coater insulin use (HCC) Class 2 obesity with [...] doctor prescribes. Do not take any vitamins, [id number] medicines, or herbal products without talking to [...] Where can you learn more? Go to [email or web address] and sign in to your [facility] account. Enter A617 in the Search Health Information box to learn more about Electrical [employer]io[employer]: What to Expect at Home. If you do not have an account, please click on the Sign Up Now link. [employer]. Care instructions adapted under license by [employer]. This care instruction is for use with your licensed healthcare professional. If you have questions about amedical condition or this instruction, always ask your healthcare professional. [employer] disclaims any warranty or liability for your use of this information. Content Version: [id number]; Current as of: April 04, 2014 documented in this encounter Chief Complaint and Reason for Visit Chief Complaint M54.16 Additional Source Comments (unrecognized sect ion and content) No Status Records FoundNo Status Records FoundNo Status Records FoundNo Status Records FoundNo Status Records FoundNo Status Records FoundNo Status Records FoundNo Status Records Found INFORMATION SOURCE (unrecogn ized section and content) DATE CREATED AUTHOR 12/21/2019 [facility] pital DATE CREATED AUTHOR AUTHOR'S ORGANIZ ATION 06/12/2021 [facility] dical Specialist DATE CREATED AUTHOR AUTHOR'S ORGANIZ ATION 10/25/2021 [facility] DATE CREATED AUTHOR AUTHOR'S ORGANIZ ATION 05/04/2022 [facility] DATE CREATED AUTHOR AUTHOR'S ORGANIZ ATION 05/27/2023 [facility] DATE CREATED AUTHOR AUTHOR'S ORGANIZ ATION 07/02/2023 [facility] DATE CREATED AUTHOR AUTHOR'S ORGANIZ ATION 10/07/2023 [facility] DATE CREATED AUTHOR AUTHOR'S ORGANIZ ATION 10/15/2023 [facility] dical Specialists EPIC Reason for Visit (unrecogniz ed section and content) Status Reason Specialty Diagnoses / Procedures Referred By Contact Referred To Contact Closed Cardiology / Echocardiography Diagnoses Persistent atrial fibrillation (HCC) Essential hypertension SOB (shortness of breath) Fluid retention Other specified diabetes mellitus with other specified complication, unspecified whether color coater insulin use (HCC) Class 2 obesity with body mass index (BMI) of 36.0 to 36.9 in adult, unspecified obesity type, unspecified whether serious comorbidity present Procedures ECHO Complete 2D W Doppler W Color Ej Foster MD [address] [place] [address] [place] [address] [facility] Echo [address] [place] [id number] Status Reason Specialty Diagnoses / Procedures Referre d By Contact Referred To Contact Closed Radiology Diagnoses Pain in both lower extremities PVD (peripheral vascular disease) (HCC) Procedures VL LOWER EXTREMITY ARTERIAL SEGMENTAL PRESSURES W PPG Ej Foster MD [address] [place] [address] [place] [address] Status Reason Specialty Diagnoses / Procedures Re ferred By Contact Referred To Contact Authorized Cardiology Diagnoses Essential hypertension Persistent atrial fibrillation (HCC) SOB (shortness of breath) Other specified diabetes mellitus with other specified complication, unspecified whether intermediate insulin use (HCC) COVID-19 Procedures Referral to Cardiac Cath [place] CARDIOVERSION ELECTIVE ARRHYTHMIA EXTERNAL Ej Foster MD [address] [place] [address] [place] [address] [place] [address] Status Reason Specialty Diagnoses / Procedures Referre d By Contact Referred To Contact Closed Cardiology Diagnoses Persistent atrial fibrillation (HCC) SOB (shortness of breath) Essential hypertension Other specified diabetes mellitus with other specified complication, unspecified whether color coater insulin use (HCC) Class 2 obesity with body mass index (BMI) of 36.0 to 36.9 in adult, unspecified obesity type, unspecified whether serious comorbidity present Pain in both lower extremities Procedures Echo 2D w doppler w color complete Ej Foster MD [address] [place] [address] [place] [address] Reason Onset Date Comments re: PT today [...] ting he had just gotten verification per [facility] that if referring provider refers for therapy then PT would be covered. He gave a reference # [id number]. Care Teams (unrecognized sec tion and content) Sand System Operator Relationship Specialty Start Date End Date Bernie Adam MD [address] [facility] [address] PCP - ACO Reach 07/07/22 Bernie Adam MD [address] [facility] [address] PCP - General Family Medicine 08/01/22 Sand System Operator Relationship Specialty Start Date End Date Bernie Adma MD [address] [facility] [address] PCP - ACO Reach 07/07/22 Bernie Adam MD [address] [facility] [address] PCP - General Family Medicine 08/01/22 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 [facility]. provides no warranty or guarantee of the accuracy or completeness of information in this document.
[2023-10-23 10:10] LABS: Glucometer 117 mg/dL (74-106)
[2023-10-23 10:15] VITALS: BP 147/98; PULSE 93; TEMP 36.1; O2SAT 94
[2023-10-23 10:48] VITALS: BP 218/124; PULSE 116; O2SAT 95
[2023-10-23 10:51] VITALS: PULSE 107; O2SAT 95
[2023-10-23] MEDS: 0.9 % SODIUM CHLORIDE 10 ML SYRINGE - SALINE FLUSH INJ (10:52)
--- NOTE | 2023-10-23 10:52 | P.ON_ITS ---
Date of procedure: 10/23/23 Pre-op diagnosis: Pain due to lumbar stenosis with neurogenic claudication Post-op diagnosis: same as pre-op Procedure: Procedure: Left L4-5, L5-S1 transforaminal epidural steroid injection Medications: Bupivacaine 0.25% 2cc, lidocaine 2% 1cc, kenalog 80mg The patient was seen and examined in the preoperative holding area.? Informed consent was obtained and placed on the chart.? Patient was brought to the medical procedure unit and placed in the prone position where a timeout was completed verifying the correct patient, procedure site, position, and planned special equipment using sterile aseptic technique.? Under direct fluoroscopic visualization a 25-gauge Quincke tipped spinal needle was advanced to the designated neural foramen where contrast dye was injected to show adequate spread.? The needle was inserted at level left L4-5. There was no evidence of vascular or adverse uptake.? Epidural spread was appreciated.? The above- mentioned injectate was then placed in a 1.5 mL aliquot preceded by negative aspiration.? The needle was removed. The needle was inserted and the procedure repeated at level left L5-S1.? The surgery site was covered.? Patient was taken to the postprocedural recovery area and monitored for an appropriate length of time before found suitable for discharge in the accompaniment of a responsible adult. Anesthesia: Local Surgeon: Ever Guillen Pathology: none sent Condition: stable Disposition: no change
[2023-10-23] MEDS: IOHEXOL 240 MG/ML - 10 ML VIAL 24 MG INJ (10:53)
[2023-10-23] MEDS: TRIAMCINOLONE ACETONIDE 40 MG/ML VIAL 80 MG INJ (10:53)
[2023-10-23] MEDS: LIDOCAINE HCL 2% 400 MG/20 ML MDV 2.5 ML INJ (10:53)
[2023-10-23] MEDS: BUPIVACAINE HCL 0.25% PF 25 MG/10 ML VIAL INJ (10:53)
[2023-10-23 10:54] VITALS: BP 180/79
== END 2023-10-23 11:02 | disposition home or self-care (01) ==
LOC: SURGOUT 09:31
PROVIDERS: Visit Provider Anesthesiology
DX: M48.062 Spinal stenosis, lumbar region with neurogenic claudication (principal); Z79.84 Long term (current) use of oral hypoglycemic drugs
CPT/HCPCS: 36415; 64483; 64484; 82948; J0665; J3301; Q9966

== ENCOUNTER 2023-11-02 14:24 | Outpatient (OUT) | payer OTHER, SELFPAY ==
--- NOTE | 2023-11-02 14:57 | P.CN_ITS ---
Consult Note: HPI Data of Consult Patient: known to practice within the last 3 years Consult date: 09/18/23 Requesting Physician: Kelley Richard NP Primary Care Provider: Non-Staff Physician, MD Consult Narrative Reason for consult: left leg pain Narrative: 72yom who presents for assessment. continues to have left leg pain and weakness. imaging reviewed, which is significant for left-sided foraminal stenosis at l4- 5, l5-s1. continues in a series of provider directed home exercises >6 weeks, without lasting relief. uses tylenol primarily. cannot take nsaids due to blood thinner. denies adverse med side effects. recently underwent left L4-5 L5-S1 TFESI with 85% improvement ongoing, continues to have moderate to severe left hip and groin pain. cc:: CC: Kelley Richard NP Review of Systems ROS Status of ROS 10 or more systems reviewed and unremark able except as noted in history and below Musculoskeletal Reports: back pain and joint pain PFSH PFSH Medical History (Updated 11/02/23 @ 14:58 by Kelley Richard NP) Diabetes ?E11.9 - Type 2 diabetes mellitus without complications (ICD-10) High cholesterol ?E78.00 - Pure hypercholesterolemia, unspecified (ICD-10) Atrial fibrillation, chronic ?I48.20 - Chronic atrial fibrillation, unspecified (ICD-10) HTN (hypertension) ?I10 - Essential (primary) hypertension (ICD-10) Surgical History History of knee surgery ?Z98.890 - Other specified postprocedural states (ICD-10) History of back surgery ?Z98.890 - Other specified postprocedural states (ICD-10) Meds Home Medications and Allergies Home Medications ?Medication ?Instructions ?Recorded ?Confirmed ?Type allopurinol 100 mg tablet 100 mg PO DAILY 06/22/23 10/23/23 History apixaban 5 mg tablet (Eliquis) 5 mg PO BID 06/22/23 10/23/23 History ascorbic acid (vitamin C) 500 mg 500 mg PO DAILY 06/22/23 10/23/23 History chewable tablet atorvastatin 10 mg tablet 10 mg PO DAILY 06/22/23 10/23/23 History cholecalciferol (vitamin D3) 25 1,000 unit PO DAILY 06/22/23 10/23/23 History mcg (1,000 unit) tablet (Vitamin D3) losartan 50 mg-hydrochlorothiazide 1 tab PO DAILY 06/22/23 10/23/23 History 12.5 mg tablet metformin 500 mg tablet 500 mg PO BID 06/22/23 10/23/23 History metoprolol tartrate 25 mg tablet 12.5 mg PO BID 06/22/23 10/23/23 History omeprazole 20 mg capsule,delayed 20 mg PO DAILY 06/22/23 10/23/23 History release ropinirole 1 mg tablet 1.5 mg PO DAILY 06/22/23 10/23/23 History tamsulosin 0.4 mg capsule 0.4 mg PO DAILY 06/22/23 10/23/23 History hydrocodone 5 mg-acetaminophen 325 1 tab PO BID PRN pain #60 tabs 06/28/23 10/23/23 Rx mg tablet hydrocodone 5 mg-acetaminophen 325 1 tab PO BID PRN pain #60 tabs 08/01/23 10/23/23 Rx mg tablet hydrocodone 5 mg-acetaminophen 325 1 tab PO BID PRN pain #60 tabs 08/02/23 10/23/23 Rx mg tablet baclofen 10 mg tablet 10 mg PO TID #90 tabs 10/04/23 10/23/23 Rx Allergies Allergy/AdvReac Type Severity Reaction Status Date / Time No Known Drug Allergies Allergy Verified 10/23/23 10:13 Exam Constitutional Documenting provider has reviewed patient's vital signs: yes Common normals: no apparent distress, oriented x3, healthy appearing, alert and well nourished General appearance: cooperative [facility] Common normals: normocephalic, hearing grossly normal bilaterally and moist oral mucous membranes Head and scalp: normocephalic Eye Common normals: PERRL Pupil: PERRL Neck & C-Spine Common normals: full ROM General: normal visual inspection Chest Common normals: inspection of chest normal Respiratory Common normals: normal respiratory effort, no retractions and no use of accessory muscles Back & Pelvis Lumbar spine/lower back: ROM limited, pain with ROM, paraspinal muscle tenderness and straight leg raise negative bilaterally Other: decreased sensation to left lateral thigh strength 4/5 in BLE unable to produce radicular pain Extremity Common normals: normal to inspection and full ROM Other: left hip mild pain with internal or external rotation left hip pain following lateral femoral cutaneous nerve Neuro Common normals: oriented x3, CN's II-XII intact bilaterally, moves all extremities, no focal motor deficits, no sensory deficits noted and deep tendon reflexes 2+ bilaterally Sensorium/orientation: alert Motor exam: strength 5/5 throughout and no movement abnormalities noted Psych Common normals: mental status grossly normal, thought process normal, cooperative, affect normal, speech normal and activity/motor behavior normal Speech: normal speech Thought process: normal thought process Results Additional Findings Additional findings: If on a controlled substance or opioids, I have checked an [place] report on this patient and there are no aberrancies noted in the prescribing history.??If on a controlled substance or opioid a drug screen was completed and reviewed within the last year, and if there has not been a drug screen completed we ordered one today to monitor higher risk, state monitored pain medication use. As part of providing excellent, safe, comprehensive care, the following was completed at our patient's visit: 1. A medication reconciliation and review to ensure accurate knowledge of current/active medications, including asking our patients to inform us about any [id number] medications or herbal remedies/nutritional suppleme nts/alternative remedies. 2. A review to specifically ensure our patients have had annual screening for screening for depression, screening for tobacco use, and screening for unhealthy alcohol use. For concerning screenings had a discussion with the patient, provided patient education, and recommended follow-up with primary care provider when appropriate. If patient noted with a risk of falling, they received education on strength, gait, and balance training to prevent future risk of falling. Assessment and Plan Assessment and Plan (1) Lumbar stenosis with neurogenic claudication: (2) Osteoarthritis of left hip: (3) Chronic low back pain: (4) Chronic prescription opiate use: (5) Meralgia paresthetica of left side: Plan hydrocodone-acetaminophen 5-325mg once daily PRN moderate to severe pain 7 tabs continue HEP as tolerated left hip injection with Dr Guillen if pt doesnt have to lay flat, unable to lay supine for injections per pt f/u 2 weeks after hip injection or in 3 months
== END 2023-11-02 14:25 | disposition home or self-care (01) ==
PROVIDERS: Visit Provider Nurse Practitioner
DX: M48.062 Spinal stenosis, lumbar region with neurogenic claudication (principal); M16.12 Unilateral primary osteoarthritis, left hip; M54.50 Low back pain, unspecified; G89.29 Other chronic pain; Z79.891 Long term (current) use of opiate analgesic; G57.12 Meralgia paresthetica, left lower limb
CPT/HCPCS: G0463

== ENCOUNTER 2023-11-13 08:11 | Day surgery (SDC) | payer OTHER, SELFPAY ==
--- OUTSIDE RECORDS SUMMARY | 2023-11-13 08:18 | XMS_ITS | CCD ---
Author Organization [facility] Care Team Providers Care Gas Analyst Name Role Phone Unavailable Primary Care Provider [...] Primary Care Provider EVANS Redd Attending Provider [phone] AWAIS Evangelista Primary Care Provider KIERA Evangelista-Byron Paez Primary Care Provider EVANS Redd Attending Provider [phone] Marina Redd Attending Unavailable Marina Redd Admrandolph [...] Unavailable JR. MARIA GUADALUPE, DAVID Matthews Attending Unavaila jose g CASTILLO, KENIA Attending Unavailable BOBBY PINK Attending Unavailable JR. MARIA GUADALUPE, DAVID Matthews Referring Unavaila jose g CASTILLO, KENIA Attending Unavailable ARIANNA LOU Attending Unavailable VERONICA, KENIA Attending Unavailable VERONICA, KENIA Attending Unavailable Mindy SANTAMARIA, Ever Gonzalez Attending Unavailable Mindy SANTAMARIA, Ever Gonzalez Attending Unavailable Mindy SANTAMARIA, Ever [...] mellitus with other specified complication, unspecified whether detention insulin use (HCC) , Class 2 obesity [...] Start: 01-21-2020 take 1 capsule by mo moh once daily omeprazole (PRILOSEC) 20 MG delayed [...] mellitus with other specified complication, unspecified whether watermelon inspector insulin use (HCC) , Class 2 obesity [...] 10-04-2022 10-04-2022 Chronic Other aftercare (1 source) intermediate (current) use of anticoagulants; 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] Onset: 05-03-2022 Episodic [...] including parasitic (5 sources) Post-viral disorder; 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] Onset: 04-27-2020 10-04-2022 Chronic Other inflammatory [...] unspecified site] Onset: 05-26-2021 10-04-2022 Episodic Other 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 [address] Assembly Line Upholsterer: Anuj Palacio MD BUN/CRE Ratio 23 High 9- [facility] Comment on above: Performed By: #### C REMI, BMP #### [facility] [address] [place] [address] Assembly Line Upholsterer: Anuj Palacoi MD Calcium [Mass/Vol] 9.1 mg/dL Normal 8.6-10.4 [facility] Comment on above: Performed By: #### C REMI, BMP #### [facility] [address] [place] [address] Assembly Line Upholsterer: Anuj Palacio MD Chloride [Moles/Vol] 102 mmol/L Normal 98-107 [facility] Comment on above: Performed By: #### C REMI, BMP #### [facility] [address] [place] [address] Assembly Line Upholsterer: Anuj Palacio MD CO2 [Moles/Vol] 27 mmol/L Normal 20-31 [facility] Comment on above: Performed By: #### C BC, BMP #### [facility] [address] [place] [address] Assembly Line Upholsterer: Anuj Palacio MD Creatinine [Mass/Vol] 0.78 mg/dL Normal 0.70-1.20 [facility] Comment on above: Performed By: #### C BC, BMP #### [facility] [address] [place] [address] Assembly Line Upholsterer: Anuj Palacio MD GFR/1.73 sq M.predicted among non-blacks MDRD (S/P/Bld) [Vol rate/Area] mL/min/{1.73_m2} Normal >60 [facility] Comment on above: Result Comment: These [...] Performed By: #### C REMI, BMP #### [facility] [address] [place] [address] Assembly Line Upholsterer: Anuj Palacio MD Glucose [Mass/Vol] 119 mg/dL High 70-99 [facility] Comment on above: Performed By: #### C REMI, BMP #### [facility] [address] [place] [address] Assembly Line Upholsterer: Anuj Palacio MD Potassium [Moles/Vol] 3.9 mmol/L Normal 3.7-5.3 [facility] Comment on above: Performed By: #### C REMI, BMP #### [facility] [address] [place] [address] Assembly Line Upholsterer: Anuj Palacio MD Sodium [Moles/Vol] 140 mmol/L Normal 135-144 [facility] Comment on above: Performed By: #### C BC, BMP #### [address] [place] [address] Assembly Line Upholsterer: Anuj Palacio MD Urea nitrogen [Mass/Vol] 18 mg/dL Normal 8-23 [facility] Comment on above: Performed By: #### C BC, BMP #### [address] [place] [address] Assembly Line Upholsterer: Anuj Palacio MD CBCon 05-03-2022 Erythrocyte distribution width (RBC) [Ratio] 13.5 % Normal 11.8-14.4 [facility] Comment on above: Performed By: #### C BC, BMP #### [address] [place] [address] Assembly Line Upholsterer: Anuj Palacio MD Hematocrit (Bld) [Volume fraction] 42.6 % Normal 40.7-50.3 [facility] Comment on above: Performed By: #### C BC, BMP #### [address] [place] [address] Assembly Line Upholsterer: Anuj Palacio MD Hemoglobin (Bld) [Mass/Vol] 13.6 g/dL Normal 13.0-17.0 [facility] Comment on above: Performed By: #### C BC, BMP #### [address] [place], [place] [id number] Assembly Line Upholsterer: Anuj Palacio MD MCH (RBC) [Entitic mass] 29.6 pg Normal 25.2-33.5 [facility] Comment on above: Performed By: #### C BC, BMP #### [address] [place] [address] Assembly Line Upholsterer: Anuj Palacio MD MCHC (RBC) [Mass/Vol] 31.9 g/dL Normal 28.4-34.8 [facility] Comment on above: Performed By: #### C BC, BMP #### [address] [place], [place] [id number] Assembly Line Upholsterer: Anuj Palacio MD MCV (RBC) [Entitic vol] 92.8 fL Normal 82.6-102.9 [facility] Comment on above: Performed By: #### C BC, BMP #### [address] [place] [address] Assembly Line Upholsterer: Anuj Palacio MD NRBC Automated 0.0 per 100 WBC Normal 0.0 [facility] Comment on above: Performed By: #### C REMI, BMP #### [address] [place], [place] [id number] Assembly Line Upholsterer: Anuj Palacio MD Platelet mean volume (Bld) [Entitic vol] 10.4 fL Normal 8.1-13.5 [facility] Comment on above: Performed By: #### C REMI, BMP #### [address] [place], [place] [id number] Assembly Line Upholsterer: Anuj Palacio MD Platelets (Bld) [#/Vol] 182 10*3/uL Normal 138-453 [facility] Comment on above: Performed By: #### C REMI, BMP #### [address] [place], [place] [id number] Assembly Line Upholsterer: Anuj Palacio MD RBC (Bld) [#/Vol] 4.59 10*6/uL Normal 4.21-5.77 [facility] Comment on above: Performed By: #### C BC, BMP #### [address] [place] [address] Assembly Line Upholsterer: Anuj Palacio MD WBC (Bld) [#/Vol] 6.0 10*3/uL Normal 3.5-11.3 [facility] Comment on above: Performed By: #### C BC, BMP #### [facility] [address] [place] [address] Assembly Line Upholsterer: Anuj Palacio MD Coding Summaryon 10-25-2021 Coding Summary HTMLBase 64 FklnzbmaINf4bFu+PGhl YWQ+YI2RLOZnO95pyJFd cY8MH5oRWL0VDPILAUWD AW8KYU5mqTP8CVfzB3Cf biAv MxvnnYDaSH16MOf9FJZ7 oAilONhfjD7diHDpO0x0 IdHrEH69iR54HMmtTRDd CvK2GjIptgmciBVw R9efGpHitZXiKct+PHRh YmxlIHdpZHRoPScxMDAl YyGuiLlyOM4pPp3dEFEh LWNvbGxhcHNlOiBj v1ldDCIvVJlmWF3vsXux H4MmnOU1OMJfd1o3Ho96 dHI+NEJaSGM7bAndTDxs b676EwShx1urSQD8 nLGcAMczSRN9F09nr7B3 HXMwFFDhFVX6nHA8tS3v uPhzmqptX5PzwETbRmS4 KKQ2tXJeaT2tcRgj mtgahE0dWiu+Z07MFE5S TRPRRX1NSkq2P1UcWmeu dHI+NM21AZFrJX25eHRj eQDkv7ganCl2UbNh DPWlZWW9zAqpXBthl6Vn HQNcX15hhVCtp2Z4OQGq lDrmfFMrScBomOS1mG6e JPctvqaun3utbosj Zwshu3lfwp13tW54O87p XWymBSPuEOD5WRLyLDEt bWjkuq2osI5tIw4+IDxj d5dya2mskTb9UzJi ABFhdqZzkEbuIGH0n2Sn Bo54R0YtlJmsu9LeOtu9 sr77uPAxf4P8aLM8WStm LJXieA0bZNhjYuN4 QCBcBkOpfC94vTExLLik Lb1rbFnzuEghVC7fMVWk rqewKDMddS3kESTrjFGs qRorOF4aGQStitou x458ZmLpVHJ6YZWxxQGy D4LoaV5pPwAsYPZjXGRy G0EjyYExUIcdK352DAgs RyX4DTYujgZyL1Je NQVuxHroCzR9s7O4Nl6X q6WxyltsUDQ4GGziCLA7 YbJgDkGyNfQ7Z7VgTyk8 ZJAbtGypCR4tO5Eh SXKywpqnuoyewQL1XZTf ZSRbgR26lXKlBFsiPn8i l9G9b202ZGVmSDRfjC51 Qf2paMvjVBBhfKET wN1yiffva4eesiwxHjKs VVGzYXi9NYi3NKLhzBtm StTiAXJ7EvA0MKB8pLNn sK6pvMnetlmjrF5v Oyc+L64kdR8lHMP3KDS9 oxzwVQFmfzHmOX48KH90 W8OqNkmrvRMcxMO+PGRp fjJyrPotGC2aUwQq q9env6FbBOowP9BuCIGi CIvjQjx6BNNbNNH7qQY2 hZ3oWGOfFZvnj5W4hYB6 F1NnlfPyxl7xx0vv MBTbCQfzD29qqNGjy7V3 ODXkhRV7AJPatBzeUdAi pN40Nop+AAKnbVdgz8Gd Oxmla8blh9rvvSx8 IjMwJSIgdmFsaWduPSJ0 z8DtSp39U34rCTimYGJl BDUuVIUmJUYkvQbwdg8h fW0aXf6+PGNvbCB3 rRO9mE0lUYHdIhY1CYrx C540BuBdiLDaIgcjt0uf s0djrUd7VcHmTYZhlmJk jItrFFZ2p2ZbXu68 P43nNEfhUQUfJLQmIMTa ORZuaNgxrs1sfE3yXo9+ NX2gr1vgwh04zJ91jCI+ SGPuVAU5pNnmKBlu SMUusJ7bOJaoJgW0DOAq WsPjxR76iEKuWHzdRd8c qDmyrRdwWD8gCOSldxmd v491FhGfg7esEUJb kOLxEMfdAEC3W21dk0J1 YRLuFZYoUUS0nSH3gX0u bGlnbjogbGVmdDsgdmVy lQzvVVzmJMwcN957 IHRvcDsnPlBhdGllbnQg AjQsXCs7O5IuGas0JADb cArpYE2vzKNvTBakGm6d zHmgnCowBN1bQEYg txygl235EsNsc4yvFBXn wILhKEabLAI7R13pj1A0 CRGoGDRlDID5kHM6mY8v bGlnbjogbGVmdDsg boXkqXvvCOnmBAogI577 IHRvcDsnPkJpcnRoIERh aLK4FA43JC67vAPej5H8 oAY1S8YfVKWveswd mxlbyOS9MEJfBQUohB67 Cu7ozHpmYs9aKOUiMST7 JHPfuVYoR5BhsG9uIhYs TOEgZNIkF8TpxZAv OXzpG475ENjeQuI7QREh iiUyU9CcZTYhcUrzBoQ4 e4X4Bk8QQ5H7RB86HW62 cTWna6F4zNC8M8Wu ZLVdxtrtpnjmaSM9YCLm NJWuaN23Un1pwUlwZs1r XYFkWIU8AAVnhIEmF9Am xO2bRcGaFGXfACGa R8JpkWXtPBdqD746AFor OcJ5NNZpjdNqQ3GnMKJz mWnpJjH7j8P9Re0VLTg5 NP97VY92mXOkm8J5 qVX7A5RyTQVlxrvsnlow tDH3EIUnWDPttE19Hx7c mGoiUv4qIKSxXAK4FZQo zFLvT0HnjR3cHfEj OIGgDWPlU6UggOXpLEhs D564TVykLsA9BKSrrnFk X5IcIYTreMqkEiE3k7A4 Nc5XHSNiZH91BJU5 mCW2MR22VA21Q8RjJrkm dGFibGU+PHRhYmxlIHdp ZHRoPScxMDAlJyBzdHls DK1pVv5rXKPtKTKl jFkopRUsReLhs3yoLMDj ORndOD1sdQhyE8VvaJC1 FDBpj6z6Cf71L98nF0Ks dXA+GMPxcWI9pXY8 mC2tBzUrEgP3NVkoD732 GbTcyYGlKajxz4mij8ow zGt5QnL2WWTneeRyaCys TOS5t0FjOb66F14n IHdpZHRoPSIxNSUiIHZh pTmwlt3iyL6eAr4+PGNv iIX8eUR3gE3nXsXdUyM6 WPsgP294SuZjdBZg Pkfpg6hai6vvuVq2XrOq RJPddjAqrYenXEP2b4Tg Aa03L8IisFeis4YnBly1 tu10uWVys1P4pLQ0 U5BqTGTjufzgrTDhtKyb LJ1mGUKyhudzADDfbK3a AAUeD9e0IzBbLeY5XPgj A8OmkxO8HIMapIFt XNytYAQ8H48mu0X0HRZh NHBeXVA0cZB2lC2coDqn bjogbGVmdDsgdmVydGlj PAvsRFkeX428OYMk gDbsNDGbqU1lVURqgJSj xPsxIH7rTEZswpyoTqkN QkVSTElORywgTEFXUkVO Y4HkBFrveXC+PHRk MWL9gXvbXOypQFWptT9j EQYqT5d6McGyNzR0HZtm C6NxIQHlmnaoWh19dS4w CnGgXzH5UQbdI3Wx ljN2HPQgoNFsDWuhHPW8 M60gt1F7CLXnVOAlGIO1 sUM9kH2xeVsqjwkoeMKf dDsgdmVydGljYWwt IEdzO445QYEplJtnNgI4 RgOcXwZ6KMg1X9UwGge6 LYMogPgtWQ4fuZOkOWot Zn6frOoqzBweAJ8h NZVmhkkxRXSfcT4fOMIf zAIufMtcTN3bXHWoiidt s138DtWoHTR3QRPdhCGd I6IuhB4eMnXmTNPz TKSxG8DtySAjYLtbL720 HWpaPgF9QTCfkcZdG6Dj BUZniNeaZxY9p1N7Xw72 MyBZZWFyczwvdGQ+ SKSsCUN2rIygMGcfCUAf iV3vDGVaK3u0IbXuYuT0 EIylH9ItEWSnxjlhAe47 fL9tUrYhMzH2ARpt N9TbeqC1BKWxrNJoVGam OND0D96yj2X2QWGzHYEs EGB7jFI2mP9vjTntufdv bGVmdDsgdmVydGlj SQydFHqoA494CGDqkDxr Qb1FQGN4X0OtHmv0RWGg fAdhVP9unRKcMSpqLf6y yWxazEjjIX4iXYCo qgteTZYpfN7yAJNuiHSn hOgoJC3zEFUswxnnl251 HoXwVTZ2HAFamZFfI8Jz uB7sHpJrALVfUODo I0NouOZgLOwhD377ZRnx DuS3BBXzwaKtA6UqXEUs hEraHpL9q1K6Hg4ZHDeq dGQ+QH19zn49P6Gx ChbpZjq4ZEVqEPT8qXY9 cL4aNJRqGSbpd7L8nDI5 T7HkizLsfe2wn0xxRCEj EXyzT09hrWNhi3H1 BYOzxIG2QESloRcdInAq pM27Lwh+IYIhjEzor1Va Tefks2mfe8swtEi8UuZc JSIgdmFsaWduPSJ0 j7PjYz80T64gNZioIJXf FYGdWNDtVETztSmufk6b qG0zUi7+WWWhuVS2rBB1 fV0xMlLfJlD8GRjl L791IzXypJIwCljql4em t4rcrHc1VxBjESAlbrGh cEafTMI8m8EjNb78B4Dv qOoax1MtDzd9hz82 yKPjw9Q1nAG3N3GcVPZv ypevkDWfxDcsJZ1kVNMl jmtuQVScxM9rXGXcA9t8 EkIwQtS6XJobS2Af vrG5ZUArxXPmDNRwcFSI uM6ogfjir2ybmzaaKdBb BADePJh2TJh9RDYslLyj NfBdUDA5IrO1GYH5 rBMytC0ipPcfuxkteS4l Oyc+OUs0t3ulhNFhHW5i xGX9NJ07IE52wFElu2G9 oGO3G7QlURGppsqd khfxaCH3NDErTULkoQ07 Fc0niXlpHy9iLSWsGAT6 PIOjhQUoL9GfdA4tFfZn FLElPETgV0XwqQJg QLjhZ681RFprJnO4UORh hfLxB3TfOJHjuRqgPbV9 i8T6Uf8MDP36GW77KY68 pJTsi1G7qPS1H6Wy LSVpblwuzrexoGY8ZVIl NAJdbD76Hy5oyEdgYt0e EQBkART0UXDbqKLoU0Vi rG0eHiPjDRMnCGPv Y4YkuMMbUQyuX788YQku MeJ2GDTjihLgX2XhCYPb lMxxEeC4n2L0Hc9VAv87 GE17CI83kDHvx9P4 uLD6B5GsMWBddvkwoaqh kWB6LVOvFGDveH26Ka3p gGwzSo7aLDBdFGW2JVHj nVZjU7JjtB5cRfJt DBGpVNDoO6KtyVNgITgj V750NYftYiR9TBTtlkYi K4BjRSLfuJbtTrT6d6A1 He4MOJpitxa6T0Jl PjwvdHI+TY04JDWqFD20 mQUarCInz7qnwQu0CzVh AXXtHCS3zQymWLlvg1Lz XVWpD32yuWGmd4N8 IGN (more content not included)... [facility] Coding Summaryon 10-04-2021 Coding Summary HTMLBase 64 BciylrwxOKc0vZl+PGhl YWQ+FF6ZPJChC13bdXOu nL6TO8gBUE0FQSRTNOUA WB2XIF0vtUK2KBvaU1Ie biAv TsshnZQnPE73CWd6CSP3 xJzeHEhszV6mbVUqP4z8 KaTvRZ49aM41RFmrNCPw EwV8CmDihqfhwVQw A5lfMjDikSUdWdv+PHRh YmxlIHdpZHRoPScxMDAl CgYkaQvaVY3iAv2tRREg LWNvbGxhcHNlOiBj m8ejBJPsFZqpTL4fzAzf L4GqjTU9WEGhw7w1Gc31 dHI+MQOyHBO4oVxrGYjv o015WtHvu9rsGDK6 cGYgHOcoYTN1S87fi2V8 BKUbRDZfOSA9qEN3kS9n lUpcipxkX9XgyFElJlA8 XFK3oRJehB6vbGfa midgsT5iPdu+Y93UGK2W YQJHTE8TFex8C6TvGrlt dHI+FW29SKEiBJ78eKFh dZGsg9jouVp2XbLz YPVzUWD7aSpzQXaxt5Ju LVXuN23vvECrk5P8RUGk oKxgaRLiCoIvyYP9kR2z ZWmoooedf4tppian Swtjl9ezbr30nZ73G90x CEjpXZRwJDZ0TSUuWIUo yOehap4ofG1sXw3+IDxj i6uvy6stbEr4DhWu FFFkfvZwlXiqRFV1c3Al Jr54L6WptBike0YvMfe6 kj78gUOku2C6bIX6FNoq ESPaoD6kHGpcJjH7 QQRiEmIpkE18tBHlHBdp Zl1lsGaoeTroTP3aICSo lnihUZOedO3sLOXemJAo nJybQS8tRIEwctgd q848RvXaXEI6KOJkoNCr F7AhmE1yVqKpSBUnAPFb V8UrsYYpWDolF706UZwn RkO7IFHrijBwZ9Mx SSTjgTstTyT8d7O4Sa2P v2VvwbgoDVD8SPwxRRE5 WdGxEuBgCjM7P9QvEll3 ZRGduTwjGH1yO9Dp QRHgveyctnwczDW6HHXw GDGfnH18bTXrKMenIs8g o4G2f391TGHeKJGqoP78 Xz1xaHxwZRVyuUDE nM3usouvc7lgxsqhYxDe NVSyMZa0FBm2YCIrcFcr GjUgWTA3QdS0PEL3lYZz kV0igEtpxvewyS2q Oyc+J08gpD8cDKD2RQL3 tlyyBFZbzzFqBD72BG74 G7GjHgeqtJDcdSV+PGRp sgAnwUtnQH8rEnXr x1twz0BsTEmaT1YtTMPj FIolKqz1VLRsFUX0yQQ9 xF3iEPTaJRmzw7O2gFK3 K2NiodUaoe1js3wy OCGtZBsbS93hxWUwr1Y4 JTZvhHY5ZWQyrAiaStHd zE83Pkm+WMVzxDqga9Bs Lacbb1xft7rjdBy5 IjMwJSIgdmFsaWduPSJ0 g9LxIu13F85oEIwvDYQk BFTpRMIyMYNgkSfmjw4b uP3dLx5+PGNvbCB3 mFQ1lX3hDVGoJfD7MJxl P491UvOslVMrTonae7lq h2xcpMi9OwAnTGOhfrDs iPspTKI6v8ZbPj99 Q46eBJjyLDDgHEPcPAUh DVIvwYucgt2beT5dTd8+ JW3uu6vpby30eM13nSJ+ UUDgCPC0nWzsESvf IGXbcU5kETnsGcN5ZDEm TsCqrJ31lWUvMIldMw4w qWfnjVrvNB0jYIClayxu f351NtTgg7idGIHb tBBoDCgfTWP8T07my7R3 KVQyGCEwYGP1fAO4qM7b bGlnbjogbGVmdDsgdmVy rMtaWCcyDPrsA830 IHRvcDsnPlBhdGllbnQg XtCbBHn8G6JsFjz9NKTo wUkzFV6lvOHhDJiiGu0x oDehqBsgXZ6aIWOh lhqby530ZeUrd0usEMSe jSMrXPhmWSR6J90uh2O9 GWDdXVSnSXD0oEX4pB4s bGlnbjogbGVmdDsg lgDejSbiUFcuOClbS477 IHRvcDsnPkJpcnRoIERh aID5OE95MR00oMUzo5C0 zIH8M8QdGQFxztje ccgwuPB8QIGsRFYajC89 Ev5khNsnEf9fUVPsLKX1 LZCteOEuR4RmiN0aRtVr MQKuEYHwM7HkeDJo AQnuO103YFurQuN1ZFVd snErQ5OjAJGjuVedYsP5 n1J7Vh6GA6N8TE35DP90 pJAje3B0gRT9P8Uj XKYjomryvqnnjYX5BOXq AIBrgW69Ag3vnRkkUw5c ZOPuVCY7UXIppSRwZ9Fy cU8gTvTlPFBxMLUm Y2DgoXQpHUmoE197WSex KdJ2XNIfafBnM6TwPPYe wKaiKfG2i9G1Ym0XOAg3 UU86JF95hZQzw9S9 mGU4R9RhIHLdsykzqezd sRZ2MDPrJCHkdP76Ls4n aJaeRz8dJRWqMYG1TANm rAGxP8LuuV1pRqCb VIHlMTQzM0RjdMRlHEgi D393YNmpRmA0SGKcrgWa F8ElIZYomNkbZvH3c6J5 An1CKKLvSO09KUO3 hDM5ZP70BP73V7AqXeiz dGFibGU+PHRhYmxlIHdp ZHRoPScxMDAlJyBzdHls QG5cTq7cWBYxHPHr pUebrLVkZpGfg7qqQUUy LPwtXG1cdVyuO9JlyXG6 YMQzu8b6Qw92Z28uF6Xn dXA+OCDjsVZ9iGT6 sG8dSjPdZnB0KBpqX558 AkNiwOAzNacpv6cut4kf yRl5FsW4JDKsbfPzpLnc HGH8k6KmOr61N14t IHdpZHRoPSIxNSUiIHZh xRbfoe4kpA8nGj8+PGNv jBZ7kPP0qR7vEmXxMxQ3 QIblN911TiEehFDt Roxkj2ocs6pnnQv4IwKq MRMvruLiiKdoDIA2d0Ev Mw40N8AdfOvay3IzPwf2 zq85oMJeq8Y0wXY7 W2FqWMNfmyhddEXgvYuq HJ3lKRUzaqutSYHxsU5d GTZsA4b0BmCfTrL3WXxk U4ZegwU7FNKjfQOj SFofQKG6D30hl4Y0LHHl ZLEeUJQ8pQH4xK2wzOfb bjogbGVmdDsgdmVydGlj VJpcJJvaU938DLTs iQxdSRBeoK8qWTYvnHUa iObqJZ4eUYKiitfoMjfV QkVSTElORywgTEFXUkVO Q5XdUXsqmKZ+PHRk KYM1rBqaJWjoDXQgsN0o CAMvV2u0SbCsXcX0KZgg V9BxGDCbisvfQp58lP9r EqLaSbB3NYzkG4Tj qjX4TFIptKJvKMwtNXM8 M74se0M4FGPwMUHrCRA0 jSQ8gU6laBbtmdgkhZFf dDsgdmVydGljYWwt EUzeC878DGGwyAkaZvT9 IoVgQiA9OHv2S9FjKtz9 HXIcsWdsHN3mnTIbNDpw Ty7wzCimxLpgCE5k UYJphcysNBDcxB6tXCOv kVIxwOlwHX2nWNHlelcr j065GpHrOYJ3BQSlhAWj Z8GmiA3cAwGuEENd JSDaT3QukYWgVUicA487 ZDzdJjK8DNIvtxWcU6Yb OONxvTvfZtB5n1C1Hv65 MyBZZWFyczwvdGQ+ BIZdKHP7hRqnCSrvMNXm mN0uVBAqD6p5LkCzBdG0 QTxiY8ZzXORtayjsSj74 dJ0yKsFeUnA5AMqk X5OqinC4QWGtqTFkDGwe ADP2K75qv4R4XLEzLMCo BCS9cFM0yY2suChceqyh bGVmdDsgdmVydGlj GWypVDzsK982IHAshYiw Sr7XRPY9H7HaQpy0RFMi cLnzLF2hnFYlCXpePp8o hSttnYaqEN7jSJWk qonoKSQehR6aLTNifDXp xWjpRB2gNKXvzbzfa163 UhZpAEW3FRCdtSKqK2Za pV9eJkRnTIRiAQMc T0OrdUZaSNngD054BRbt XfR8TQCktqQoQ7GbMVAb bTnhIzW4h2L3Pl2BVhEw cnZhdGlvbjwvdGQ+ HT47cm14X2FpDrqwEvk8 HSRwVCD2qVP7bT6sUUXr VWjli6T8fDK0D4LyavEu vb8eh2icVJWiTDkv W56tmTYff6W0JHVvmNN1 JFLxzEcuZcYcbS90Lvy+ PDLmsVsle7PmEhkpt2nn i4fibGw2DcItEDCj fpQunXadMBZ2t6SmEj71 W16tLLmwLLSzNWXfJBYu KDIngLrulq1swY4xFp8+ CJDgcKG9bGM7sD0s IaOgEwT9QEbzX506IsXe cSKvUfgbl4axg4lsoIf5 IjIwJSIgdmFsaWduPSJ0 q1YgQi54B7LrgYac i1RwLfj3zz83cTIzh2O5 wFA7D6WtIWPejjkcwGFn cJftPI9aZAAeohauXPTg nP1dVIEjW8q9MbDz AoT8KAxaG9MsjeE9ZREa lTNrFQXpgMDXjC4iiugr f3ecgflkFqMyLNUbPUe5 WFt6PDRmeSspPrBy BPJ1HuJ2UYU8rPFzsT6c yBeorheryO3eFcc+UGh5 v8tcoOJeDY3ubTQ6GU77 PU79lMEjv7O6wHP9 L8MhFIUppsvpjrkwrRG7 LKPdJLFdlE84Sc2joTkq Gw7lLCKaYWM9GVFjxNDk Z2QvdF3gOqHjIHMr KRMbY0AmwTFuIHtsP110 JUeiBzQ8EITapuSxU8Nh LZDmjHbzIsG9v4G2Nt0O LE52HV00JF72vMPo u0Y7pFK3K3VaVCOqfzcx ydigrLM4ZBEzJHDasJ44 Rs3xjKyfDf2oNCUmMOE8 JHSmvGAdD5HxeJ0c MbJuCYJtALVvI4CsbNSs DZsnI912KPqjMyF2UEMm rbHaV6ImDYGchYhyKtX8 w4N4Qh6GRb60IQ54 DG13yXGrn7M2oTY3T8Jv LLHhmmylrdpiwUD5NJLk ADXbvD25Ah0yzOyqSs9s EFSaTRH7WDVkqLPc S2PvsW5wKfVsIAJeEYSs M0NzzKEbOMwkQ116QAti TjC4BJThoqYaK9JkOLEm yVuvAaO0n0L8Pu4D THrrmkj5E8IqWyjhnXN+ HJ83VWItNO61gOPqhXXv g1lnoCi0GfZdCRYtSVJ5 pVvkZUoiy5ZaOCIb Y29 (more content not included)... [facility] Consent Formson 09-23-2021 Consent Forms [id number] #1.00OTGTIFF [facility] Consent Formson 09-20-2021 Consent Forms [id number] #1.00OTGTIFF [facility] MAGR Postoperative Recordon 09-20-2021 MAGR Postoperative Record MAGR Phase II Record Summary Primary Physician: DAVID AWAD DO Finalized Date/Time: 09/20/21 10:05:40 Pt. Name: ZAINA WINTERS D.O.B./Sex: 1950 MALE Med Rec #: [id number] Physician: DAVID AWAD DO Financial #: [id number] Pt. Type: O Room/Bed: 229/1 Admit/Disch: 09/17/21 08:03:00 - 09/18/21 12:10:00 Institution: [...] Signed By: Vianca Celaya RN 09/20/21 10:05 [facility] Outside Recordson 09-20-2021 Outside Records [id number] [facility] Provider Orders [id number] [facility] [id number] #[address] [place] [address] Telemetry Stripson Telemetry Strips [id number] #1.00[facility] Electronic Messagingon 09-19 Electronic Messaging --- --- --- --- --- --- --- --- --- From: Ej ([id number]), Ej To: ZAINA WINTERS Sent: 09/19/21 04:18:10 AM EDT Subject: Discharge Summary Ready to View A summary regarding your recent visit is available in the Documents section of your Health Record. [facility] .Auto Diff 109-18-2021 Auto [place] % 9 % Raven 02-24 [facility] Comment on above: Performed By: #### 1 [id number], [id number], [id number] #### [facility] (DEFAULT) [address] [place] [address] 49982 Baso Abs# 0.0 x10 Normal 0.0-0.2 [facility] Comment on above: Performed By: #### 1 [id number], [id number], [id number] #### [facility] (DEFAULT) [address] [place] [address] 52028 Basophils/100 WBC (Bld) 0.0 % Low 0.2-2.0 [facility] Comment on above: Performed By: #### 1 [id number], [id number], [id number] #### [facility] (DEFAULT) [address] [place] [address] 92275 Eos Abs# 0.0 x10 Normal 0.0-0.4 [facility] Comment on above: Performed By: #### 1 [id number], [id number], [id number] #### [facility] (DEFAULT) [address] [place] [address] 63874 Eosinophils/100 WBC (Bld) 0.0 % Low 0.9-4.0 [facility] Comment on above: Performed By: #### 1 [id number], [id number], [id number] #### [facility] (DEFAULT) [address] [place] [address] 05541 Lymph Abs# 1.2 x10 Low 1.3-2.9 [facility] Comment on above: Performed By: #### 1 [id number], [id number], [id number] #### [facility] (DEFAULT) [address] [place] [address] 31770 Lymphocytes/100 WBC (Bld) 9 % Low 14-48 [facility] Comment on above: Performed By: #### 1 [id number], [id number], 8709089 #### [facility] (DEFAULT) [address] [place] [address]8311 [place] Abs# 1.3 x10 High 0.0-0.8 [facility] Comment on above: Performed By: #### 1 [id number], [id number], [id number] #### [facility] (DEFAULT) [address] [place] [address] 00071 Neut Abs# 11.6 x10 High 1.5-9.2 [facility] Comment on above: Performed By: #### 1 [id number], [id number], [id number] #### [facility] (DEFAULT) [address] [place] [address] Neutrophils/100 WBC (Bld) 82 % Normal 44-88 [facility] Comment on above: Performed By: #### 1 [id number], [id number], [id number] #### [facility] (DEFAULT) [address] [place] [address] CBC w/ Auto Diffon 2 Erythrocyte distribution width (RBC) [Ratio] 14.0 % Normal 11.5-15.0 [facility] Comment on above: Performed By: #### 1 [id number], [id number], [id number] #### [facility] (DEFAULT) [address] [place] [address] Hematocrit (Bld) [Volume fraction] 36.8 % Normal 34.8-51.9 [facility] Comment on above: Performed By: #### 1 [id number], [id number], [id number] #### [facility] (DEFAULT) [address] [place] [address] Hemoglobin (Bld) [Mass/Vol] 11.9 g/dL Normal 11.8-17.7 [facility] Comment on above: Performed By: #### 1 [id number], [id number], 1506716 #### [facility] (DEFAULT) [address] [place] [address] Instr WBC 14.2 x10 Invalid Interpretation Code [facility] Comment on above: Performed By: #### 1 [id number], [id number], [id number] #### [facility] (DEFAULT) [address] [place] [address] Man Diff? Auto Normal [facility] Comment on above: Performed By: #### 1 [id number], [id number], [id number] #### [facility] (DEFAULT) [address] [place] [address] 98656 MCH (RBC) [Entitic mass] 30 pg Normal 24-34 [facility] Comment on above: Performed By: #### 1 [id number], [id number], 9549923 #### [facility] (DEFAULT) [address] [place] [address] MCHC (RBC) [Mass/Vol] 32 g/dL Normal 26-37 [facility] Comment on above: Performed By: #### 1 [id number], [id number], 1713475 #### [facility] (DEFAULT) [address] [place] [address] MCV (RBC) [Entitic vol] 94 fL Normal 81-100 [facility] Comment on above: Performed By: #### 1 [id number], [id number], 8671552 #### [facility] (DEFAULT) [address] [place] [address] Platelet 181 x10 Normal 138-427 [facility] Comment on above: Performed By: #### 1 [id number], [id number], 4828053 #### [facility] (DEFAULT) [address] [place] [address] Platelet mean volume (Bld) [Entitic vol] 10.4 fL High 6.3-10.2 [facility] Comment on above: Performed By: #### 1 [id number], [id number], 6374653 #### [facility] (DEFAULT) [address] [place] [address] RBC 3.92 x10 Normal 3.70-5.30 [facility] Comment on above: Performed By: #### 1 3091750, [id number], 1190390 #### [facility] (DEFAULT) [address] [place] [address] WBC 14.2 x10 High 3.5-10.5 [facility] Comment on above: Performed By: #### 1 [id number], [id number], 2859741 #### [facility] (DEFAULT) [address] [place] [address] Electrolyte Panel Standardon 09-18-2021 Anion gap [Moles/Vol] 12.0 mmol/L Normal 5.0-19.0 [facility] Comment on above: Performed By: #### 1 [id number], [id number], 8786335 #### [facility] (DEFAULT) [address] [place] [address] 93263 Chloride [Moles/Vol] 98 mmol/L Low 101-111 [facility] Comment on above: Performed By: #### 1 [id number], [id number], [id number] #### [facility] (DEFAULT) [address] [place] [address] 14129 CO2 [Moles/Vol] 28 mmol/L Normal 21-32 [facility] [place] Comment on above: Performed By: #### 1 [id number], [id number] #### [facility] (DEFAULT) [address] [place] [address] Potassium [Moles/Vol] 3.8 mmol/L Normal 3.6-5.1 [facility] [place] Comment on above: Performed By: #### 1 [id number], [id number] #### [facility] (DEFAULT) [address] [place] [address] Sodium [Moles/Vol] 134.0 mmol/L Low 136.0-144.0 [facility] Comment on above: Performed By: #### 1 [id number] #### [facility] (DEFAULT) [address] [place] [address] Inpatient Patient Summaryon 09-18-2021 Inpatient Patient Summary [address] [address] Patient Discharge Instructions Name: ZAINA WINTERS Carmen : 1950 Patient Address: [address] [place] [address] Primary Care Provider: Name: Jeannine Hurley After you are discharged if you find you have any questions, please, call [phone] ext [phone] to speak to a nurse. Discharge Diagnosis: Acute pain of right knee Prescription Information: If you have been given a prescription for narcotics, seek immediate medical attention if you have any difficulty breathing or any sudden status changes such as confusion and sleepiness. If you or anyone you know is experiencing suicidal thoughts, mental health, alcohol and/or drug addiction problems; contact the [facility] 05/09 Crisis Hotline -Text 4HOPE to 612063. If you received any narcotics, sedation, or [...] business decisions or sign any legal documents [facility] [place] would like to thank you for allowing us to assist you with your healthcare needs. The following includes patient education materials and information regarding your injury/illness. ZAINA WINTERS has been given the following list of follow-up instructions, prescriptions, and patient education materials: Follow-up Instructions With: Address: When: Marina Redd [address] [place] [address], [address] [place] [address] Business (1) 10/01/2021 11:00 AM Medications During [...] to tolerance (more content not included)... Normal [facility] Pharmacy Noteon 09-18-2021 Pharmacy Note I [...] Emiliano Montgomery [Verified on: 09/18/2021 10:36 EDT] ValentinaEmiliano [facility] Progress Note - Nurseon Progress Note - Nurse Discharged to home. Prescriptions and instructions reviewed with and given to pt. He verbalized understanding. Taken to awaiting vehicle via wheelchair. All belongings sent with pt. [Electronically Signed on: 09/29/2021 14:49 EDT] Mildred David RN [Verified on: 09/29/2021 14:49 EDT] Mildred David RN [facility] Progress Note - Nurse POC discussed with pt. Educated on safety and ADL care once discharge home. He verbalized understanding [Electronically Signed on: 09/29/2021 14:49 EDT] Mildred David RN [Verified on: 09/29/2021 14:49 EDT] Mildred David RN [facility] Anesthesia Noteon 09-17-2021 Anesthesia Note Patient: ZAINA WINTERS Age: 70 years Sex: MALE : 1950 Associated Diagnoses: None Author: Eugene Castaneda MD Postoperative Information Post Operative Note: Operative Day. Anesthetic utilized: General. 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 Aftercare following left knee joint replacement surgery / SNOMED CT 458899430 / Confirmed Resolved: COVID-19 / SNOMED CT 9631278845 Resolved: Diabetes / SNOMED CT 379299685 Physical Examination VS/Measurements Vital Signs (last 24 hrs) Last Charted Heart Rate Monitored 88 bpm (SEP 17 14:05) Resp Rate 1 br/min (SEP 17:05) SBP 118 mmHg (SEP 17 14:00) DBP [...] on: 09/17/2021 14:12 EDT] Eugene Castaneda MD [facility] Anesthesia Note Patient: ZAINA WINTERS [...] All Problems Atrial fibrillation / SNOMED CT 03101185 / Confirmed FH: hypertension / SNOMED CT 024415192 / Confirmed History of post-polio syndrome / SNOMED CT 356143964 / Confirmed Aftercare following left knee joint replacement surgery / SNOMED CT 741611597 / Confirmed Resolved: COVID-19 / SNOMED CT 8356758879 Resolved: Diabetes / SNOMED CT 120043152 Histories Family History: CA - Cancer of colon Grandparent Heart attack Mother Grandparent Tobacco user Mother Father Brother Procedure history: Arthroplasty of knee using cement ([id number]) on 03/02/2021 at 70 Years. Back ([id number]). Comments: 02/04/2021 10:08 Oliva Van RN surgery [...] Oriented. Review / Management Laboratory Results Plan [place] [employer]#(A SA) physical status classification: Class III. Anesthetic Preoperative Plan Anesthesia: General. , Regional adductor canal block for post op pain control per surgeon request. Anesthetic plan, risks, benefits, and alternatives discussed with the patient and/or family. Patient verbalized understanding. [Electronically Signed on: 09/17/2021 11:19 EDT] Eugene Castaneda MD [Verified on: 09/17/2021 11:19 EDT] Eugene Castaneda MD [facility] MAGR Intraoperative Recordon 08-05-2022 MAGR Intraoperative Record MAGR Intra-Op Record Summary Primary Physician: DAVID AWAD DO Finalized Date/Time: 09/17/21 14:17:42 Pt. Name: ZAINA WINTERS /Sex: 1950 MALE Med Rec #: [id number] Physician: DAVID AWAD DO Financial #: [id number] Pt. Type: D Room/Bed: [facility] Admit/Disch: 09/17/21 08:03:00 - Institution: Case [...] Role Performed Surgeon - Primary Anesthesiologist of Paint Mixer Record Time In 09/17/21 10:35:00 09/17/21 10:17:00 [...] CST Meyer PA-C, Matthew J Role Performed Mounter Saxophones Scrub Personnel Physican Car Servicer Time In 09/17/21 10:17:00 09/17/21 10:17:00 09/17/21 [...] By Zhanna Urrutia RN Scrub 10% Povidone-Iodine [place] Prep Area (more content not included)... [facility] MAGR Intraoperative Record MAGR Intra-Op Record Summary Primary Physician: Finalized Date/Time: 09/17/21 10:39:41 Pt. Name: SINGHZAINA D.O.B./Sex: 1950 MALE Med Rec #: [id number] Physician: DAVID AWAD DO Financial #: [id number] Pt. Type: D Room/Bed: [facility]/1 Admit/Disch: 09/17/21 08:03:00 - Institution: Case Times MAGR Entry 1 Patient In Room Time 09/17/21 09:55:00 Out Room Time 09/17/21 10:10:00 Anesthesia Start Time 09/17/21 09:56:00 Stop Time 09/17/21 10:05:00 Surgery Start Time 09/17/21 10:02:00 Stop Time 09/17/21 10:05:00 Last Modified By: Vianca Celaya RN 09/17/21 10:32:40 Case Attendance MAGR Entry 1 Entry 2 Entry 3 Case Attendee Eugene Castaneda MD, Ruth RN Roach RN, Brayan Altamirano Role Performed Anesthesiologist of Paint Mixer Paint Mixer Record Time In 09/17/21 09:55:00 09/17/21 09:55:00 [...] Signatures Signed By (more content not included)... [facility] MAGR PACU Record Summary Primary Physician: DAVID AWAD DO Finalized Date/Time: 09/17/21 15:19:58 Pt. Name: JHONZAINA MCKEON./Sex: 1950 MALE Med Rec #: [id number] Physician: DAVID AWAD DO Financial #: [id number] Pt. Type: D Room/Bed: 229/1 Admit/Disch: 09/17/21 08:03:00 - Institution: PACU Case Times MAGR Entry 1 In PACU I 09/17/21 14:10:00 Discharge from PACU 09/17/21 15:15:00 I Last Modified By: Vianca Celaya RN 09/17/21 15:19:57 Finalized By: Vianca Celaya RN Document Signatures Signed By: Vianca Celaya RN 09/17/21 15:19 [facility] 09-17-2021 MAGR Preoperative Record MAGR Pre-Op Record Summary Primary Physician: DAVID AWAD DO Finalized Date/Time: 09/17/21 10:43:23 Pt. Name: JHONZAINA MCKEON/Sex: 1950 MALE Med Rec #: [id number] Physician: DAVID AWAD DO Financial #: [id number] Pt. Type: D Room/Bed: 229/1 Admit/Disch: 09/17/21 [...] consent correct. General Comments: Pt arrives to [facility] ambulatory. Pt denies CP, cold/flu/COVID like symptoms. Pt denies, DM, pacer/defib, POOL. Finalized By: Vianca Celaya RN Document Signatures Signed By: Vianca Celaya RN 09/17/21 10:43 [facility] Nutrition Noteon 09-17-2021 Nutrition Note [...] with in house available Ensure Compact BID. [facility] Progress Note - Nurseon Progress Note - Nurse IV fluids stopped for good PO intake at this time [Electronically Signed on: 09/24/2021 15:45 EDT] Raquel Duvall RN [Verified on: 09/24/2021 15:45 EDT] Raquel Duvall RN [facility] XR Knee One or Two [...] MD 09/17/21 4:07 pm Technologist: Abilio AMIN [facility] Progress Note - Nurseon Progress Note - Nurse Pre-op phone call complete. Reviewed arrival time of 0830 on Monday09/17/2021 and pre-op instructions with pt. Pt voiced understanding and is without further questions or concerns at this time. [Electronically Signed on: 09/16/2021 09:25 EDT] Brayan Roach RN [Verified on: 09/16/2021 09:25 EDT] Brayan Roach RN [facility] 2018 Novel Coronavirus (CoVI D-19), JULISSA LCon 09-14-2021 SARS-CoV-2 (COVID-19) RNA JULISSA+probe Ql (Unsp spec) Not detected Invalid Interpretation Code Not Detected [facility] [place] Comment on above: Order Comment: [id number] Result Comment: This nucleic acid amplification test was developed and its performance characteristics determined by [employer] [facility]. Nucleic acid amplification tests include RT- PCR [...] detected) result in this assay. Performed At: [address] [id number] Zay Landa PhD Ph:[phone] Performed By: #### 6 [id number] #### [facility] ([facility]) [address] [place] [address] Coding Summaryon 09-14-2021 Coding Summary HTMLBase 64 EspwmjssDDt0fRt+PGhl YWQ+VL2OTLJyT79jlCJt rB4CY5mWXQ1UXNPWMRUL HB9TYK4idVV4VDrfR0Ua biAv JhhdqUCdHR38HNe8NDW9 dAouGEhrsT1npJCmH9l4 CsBqHV70uT69FRolVSQr BdC7NfKtbcncyQFh A1djJzYemDQfGjj+PHRh YmxlIHdpZHRoPScxMDAl VtVijDuxKX1pSg6mXGPf LWNvbGxhcHNlOiBj j9qkNEGsKQlbIO4iqOtv L3QyrOT8VTNie0c0Vi00 dHI+JUNgGHD0oZxiQFfm d969KlJuk0lbCSJ3 xWSgQLicCXH2E19ma1N2 XJPpRWWmAWM8tWP2gO2o aCzxugtiT4HgqVXwSoS0 OZB9rVZgqO3ljAso nffopT5mNjs+L72COM6Z TXYMKL6QSmm6Q6SpYhvf dHI+TD19UJYgPI93lMHb oXNwq6zyvEo9JlCi YYGaFAS5iCfoXMbkx1Wu JYLoK11juOOsf8V7RKQl oCbaiDWxThVpbIK0gW9b VCowavvll1hgkgsr Tofmq0mlvm00hX39M97b NOflTULnZBO6IXHbYBFj kAacwl0xtJ8tDi1+IDxj n5hsv9kwkPf0IsKm ZQOyhgNrhMxvSSX7l2Vp Un72O9ZatTozb6JpYbm8 hc24yUAmu0V1kBZ8UNwt QZRlbU8dXKbxHaX5 WZOqYoOoaX34iTQwFLgg Hi9csXozwRbaUG4rRERx mlasOQFqfI0oKJTalJKt iPgoMX9yWYWtwvwp l004ZeJxHFC4BUQkmSDb B5DjiS4xVsVwZWAjDILe U9ChsUDdEYglI982PAhe GyR9SAMsagWcJ5Lq NTGrcNngAuQ5z4X6Kf2D y9KfzlpoUML9YVqbDLT2 XpSsJsAcFqL6O8LgBay8 FJQpmZzpAU6mA9Ay AIDtqiiykbtljJL4YHSa ZNJecK68mAUkMLdgQl7d v3E3e687MWUhZIJogT04 Eg2wkKycBTUkgNLN uO8nzctnm1bynvqfOnUk IDWaVWw2CAx7NOCluZkz XwMeZLV0CyN9BHV9nWMw hQ7fqOcbgushvS1w Oyc+T25xjK1pXOQ6GYN5 vstbFWMwomNqZN63EH78 L0BzTupzgJCztMG+PGRp tqEzhLnwSO1bZnPf e6zzm4WvHRpcO6GjRJVx JNwbUxg5CIBtJWX8kSL4 bZ2zQANyUIazv2K1rDC7 D7TrejRyqx3mw8ts NZKxFYzyR56gpAOot4V8 VSTipKI4GZGiwNucZlAe pO93Bfl+TYIasJpne0Sm Vrtny3dku8xeoTw5 IjMwJSIgdmFsaWduPSJ0 z0AgOv88N83vYBvkXIKb OSYiRLVxYCQpnTlnbv8t cN5hNo8+PGNvbCB3 pOQ7qR0iDSUbObZ5AXlw H333UdEayVCnAnkxt6ey r9jbaRh7XbSgLCPwqgTn wNumPQW5i2AaFr98 F34mSVscHGItCKYuXKRt XDSfuVvqlv7rcD1rBe3+ UR8xn1egko12kM46tZA+ OHBtCBS2aXtnMQvj SHFguD9kWIvnHkF3AVNd HvAlgF09fKMnIWuvSz0p tAcqrScmLI7bNPNxcfke r430GxKib7krCCQh dWRhIYdkHQB5W97dy4T3 JUQfTSVtYXM3dZZ9dP1a bGlnbjogbGVmdDsgdmVy cDcvJNoxEMknK903 IHRvcDsnPlBhdGllbnQg IkJsDUq5J4WkRay8SJWb tEbcVP4hkEMdLLqmDr6d fLfqzRpaHO1fYLFm mlvnd034WkAem0slLGIu rTFoBWduFXY9P16gn1U9 XNIyTSIgEDL7jMX0eB1j bGlnbjogbGVmdDsg xpWflDmtCGzoWWamB716 IHRvcDsnPkJpcnRoIERh zFD4CU63XQ30vXXjp5B8 zYF6R3EhSTTqiken opuxoFN8LRKsNYRdiY34 He6hiJjyDm4oIEJtNGW1 DDOvmJGhI3RmzT3zWbNx PQBmWFUnJ3WclDFu DXwoT043WHoyUmW1JNFr sgXuF0MyRBVgnLtwMtF7 r4P2Ss1HD3Y9XQ14EY89 bJAkx2F2jKL1P9Nq PLXertzgwbxsoBW4XQAq DPFpcH23Kw4ncRnoTc9y NGVfWUV1PUSxyEPyG6Wf eC4bYyFhZUFaZZAu I7RqqCJgUWfyG575LOcd UcB7FNNeqkSvF6BfSIWy xAjeFtQ2i4S8Bz1EZWd4 AK91QX15wKVpj8A0 fVB1C4LmHECbjkabhvtu eSP6EWDkHLPzxR06Fw0i fFqtHa1bYWDbUNR8EONu gAYyS9EmoN5mOzUo RRTlDDApP8FucVEcXQki C922AKmmShB2BFZrkeLm Q9SvMLTvjDqjKaD1e9J7 Lb5LFBYlNS59NEU5 uDA5BL32WO68T8OkCetv dGFibGU+PHRhYmxlIHdp ZHRoPScxMDAlJyBzdHls GI7jXm6yYYGuDWTo pGyytSMsTsUrj4fvLAYm WQuuEA1rsElvY7SgxXP2 OGLju6c1Fq72S25fA6Kp dXA+NBXymDH9wDQ1 tP9lKuCeNyM4DZjpO851 FdXjsWFrBsrzl2cia3mq mKk7AzB2YNXrmzGdsGtx BMC3y0EoZu02E74u IHdpZHRoPSIxNSUiIHZh gBgfcu6njD6dBy1+PGNv iJR9dGP6lT7dMrBqWpW9 QYzuC463CjXrxFOk Vxnht3cpt4zprXk2DvIs WGOeqlCikRyaXLU1a0Sa Xn88Z4LoeHluf4QgFlc1 mc93lEKyc9J4xJE9 W3RzLKEsbohrgZDfyVmv ZF4kXYYsgnhjCHStcK3g PWUqP4e9SkOiHyZ3AUli P3XtyoX6OFZgkMCg IZdsCWI5L21ed5G7IQIv QCKqIFW4wIP1dF0meBkw bjogbGVmdDsgdmVydGlj RGkhSQadJ690KWZh nUxcWNQzpY4kQGUuhRHw eRseYA0qWVGvziyiTevY QkVSTElORywgTEFXUkVO T8AtQBojaXU+PHRk RNN9aAgvQEllBKQtjY6t CCFmP7d9SvBzLeU0SMqb R4AzWHWisiioHd33zF7g XtHkDkB0ZCfkU3Ke euT5TIAvmDNrVFebGZN6 F52et2Z3XSDpOFBwBDN3 tHN5cU7cjKimarfpxUDd dDsgdmVydGljYWwt CDppV979SZVxiFhkTyH2 XoRuQaL4QEq2B5HsKuw0 LLVwkMwiIW7vwGVzZMva Me9dvCpgiZgmJW6q DYPfhftmABZlaD6gFDIs zKNeaXynGQ0wEOEeiqvy g256KnMoWCY8MOEoeLOb P7OvmK5aGfOdCROs KKFaU6FulLQrWKmdE102 VHrbGrL5YRAaxuElH7Ep ELHfeNjeXsS5m0W0Yc07 MiBZZWFyczwvdGQ+ CIIkZNS6kGryEReaVMGc cO7fMVPlQ1k8IbDfFfV6 CLghQ5GzCFSjzrpaVl28 cJ9nXgYuXpI4JRet R9ZznrR8GQYxyHEqGKdu EQX0V09sk4U3HNVpDBKh XPD6kMH6yI1wjJvykqds bGVmdDsgdmVydGlj HCgeQBtyA656ESFadStj Mz2SWJE9L6XdXoj6VPVn dRbtYR5cyKHmOJegPo1l kNbekMrgKD8kFJGt dleySBQyiT5fMOKqnLVr nTeqWS3uZKGqcnbbe606 ScPpGQU6FJYhaJBcC4Yk xJ0mVgKxAMTpFLWc K6UrkDVuOOsqH733VQbu LlW3MCOngmBvB6IrIYJn aCwiAwA1y5I9Dp9EASnl dGQ+VC53xs50Y0Dk VpdzNvd4RJJwLKY5yAM9 iD7bDIWkFXsdo1O1sIU9 V2EyupRytd0ul4gzOXLb ANtgN50nkXRul1V1 UMUyoIK3HGOyoUbhXjLh pK35Reb+WXUhsJmls4Ak Meruj3agd7ktdOb5OrQl JSIgdmFsaWduPSJ0 h4PeRp70R09bGKjaEJFt QQViCKFfDCXwyCtxvz8a dM0iBi1+RTPweMQ1iAQ7 eP9oAiCsMgS8YFps P032FiXimUHnGykzq4kv d2dbgPd3OuNxZRFafsTh eJvwQGF1h4CnEm39Q6Mo sStmq7JeOgz0hg74 vHVnf9A5kSZ6E5JyPKTf btfuzKXchEwyAE0aMOKf xeilEMHflH1dXWZfW3g1 ClLoBoU6NVmaY4Ay jeI5PISgtORqEKGqeTLO xC3gvtjkz6vxcmoeCnWi GBLkBHw1ABx4DVDwsWjn VtAqDZK5EfJ9QKI0 hFBgeV6nyOmwrbgsrQ5p Oyc+PRt3p2yfmHAsMP8z vHG4JI28HV81mSNda0Y9 tVI2O1BnLKIzjrou ookysZP9ZABoNVKchZ80 Dt6piLvcVn0bRSHpHLB7 OZSjmWFgF5KufU6yKmRe IKTuOYXaL9QqoNIa GRgqP629HXjwEkD2OSHl udTdB7AxFMOkiAxhKpP8 m7W2Xu0JMA46MW40TJ66 fDAax9C9pCM0S3Ac CDPvkayotfcfdYR1DCQk UXCsdV00Fw0ogZrjKo8z UEUmKDZ9JARnrLEeM0Pk fP1pMjBdXNTdIEGj L4IqjNNrBJjeZ609ICym JbN2NRIaeyAeW5EbAXJw qYtdPnE8p3L4Qi6GPp64 WV60HV10kZTgq7X3 uBF2O4LfNNCtdpngbxxm nMW0GBUiGWOfsK60Vd4l lQnvTl3jYWXiEXD1FCRt rOKnG1CevY4xQkBp QSEoSNEvQ2CfrNGvKQwp R982XUldHtB9ILPrmsJr U8JsUMPmjBuoYwF7d3L1 Uh2HFOuqgli5E2Fn PjwvdHI+AO66XTKvFT87 ySGoyBIet3hnyFl9SoBr SQYdPCL1mArdNCnwq9Zx TLEwW52mxVTet4E8 IGN (more content not included)... [facility] C Urineon 09-03-2021 C Urine <10,000 cfu/ml [facility] Comment on above: Performed By: #### 6 [id number] ####[facility] (DEFAULT)[address] [place] [address] Progress Note - Nurseon 08-14 Progress Note - Nurse PAT chart for 09-17-2021 surgery reviewed per anesthesiologistDr Mccauley- no additional orders received. [Electronically Signed on: 09/02/2021 13:45 EDT] Rita Molina RN [Verified on: 09/02/2021 13:45 EDT] Rita Molina RN [facility] Provider Orderson 09-02-2021 Provider Orders [id number] #[id number] Normal [facility] [place] .Auto Diff 09-01-2021 Auto [place] % 9 % Normal 1-12 [facility] [place] Comment on above: Performed By: #### 1 [id number], [id number], [id number] ####[facility] (DEFAULT)[address] [place] [address] Baso Abs# 0.0 x10 Normal 0.0-0.2 [facility] [place] Comment on above: Performed By: #### 1 [id number], [id number], [id number] ####[facility] (DEFAULT)[address] [place] [address] Basophils/100 WBC (Bld) 0.6 % Normal 0.2-2.0 [facility] [place] Comment on above: Performed By: #### 1 [id number], [id number], [id number] ####[facility] (DEFAULT)[address] [place] [address] Eos Abs# 0.0 x10 Normal 0.0-0.4 [facility] [place] Comment on above: Performed By: #### 1 [id number], [id number], [id number] ####[facility] (DEFAULT)[address] [place] [address] Eosinophils/100 WBC (Bld) 0.7 % Low 0.9-4.0 [facility] [place] Comment on above: Performed By: #### 1 [id number], [id number], [id number] ####[facility] (DEFAULT)[address] [place] [address]5866 Lymph Abs# 2.2 x10 Normal 1.3-2.9 [facility] [place] Comment on above: Performed By: #### 1 [id number], [id number], [id number] ####[facility] (DEFAULT)[address] [place] [address] Lymphocytes/100 WBC (Bld) 31 % Normal 14-48 [facility] [place] Comment on above: Performed By: #### 1 [id number], [id number], [id number] ####[facility] (DEFAULT)[address] [place] [address] [place] Abs# 0.7 x10 Normal 0.0-0.8 [facility] [place] Comment on above: Performed By: #### 1 [id number], [id number], [id number] ####[facility] (DEFAULT)[address] [place] [address] Neut Abs# 4.1 x10 Normal 1.5-9.2 [facility] [place] Comment on above: Performed By: #### 1 [id number], [id number], [id number] ####[facility] (DEFAULT)[address] [place] [address] Neutrophils/100 WBC (Bld) 58 % Normal 44-88 [facility] [place] Comment on above: Performed By: #### 1 [id number], [id number], [id number] ####[facility] (DEFAULT)[address] [place] [address] Standardon 09-01-2021 eGFR Non AA >60 Invalid Interpretation Code [facility] Comment on above: Performed By: #### 1 [id number], [id number], [id number] ####[facility] (DEFAULT)[address] [place] [address] eGFR AA >60 Invalid Interpretation Code [facility] Comment on above: Result Comment: General Manager Land Department korina Kidney disease could be indicated at eGFRs of less than 60 ml/min/1.73m2. Kidney Failure is indicated at less than 15 ml/min/1.73m2 Performed By: #### 1 [id number], [id number], [id number] ####[facility] (DEFAULT)[address] [place] [address]17 Anion gap [Moles/Vol] 12.0 mmol/L Normal 5.0-19.0 [facility] Comment on above: Performed By: #### 1 [id number], [id number], [id number] ####[facility] (DEFAULT)[address] [place] [address]92 Calcium [Mass/Vol] 9.7 mg/dL Normal 8.9-10.3 [facility] Comment on above: Performed By: #### 1 [id number], [id number], [id number] ####[facility] (DEFAULT)[address] [place] [address] 44621 Chloride [Moles/Vol] 102 mmol/L Normal 101-111 [facility] Comment on above: Performed By: #### 1 [id number], [id number], [id number] ####[facility] (DEFAULT)[address] [place] [address]605 CO2 [Moles/Vol] 29 mmol/L Normal 21-32 [facility] Comment on above: Performed By: #### 1 [id number], [id number], [id number] ####[facility] (DEFAULT)[address] [place] [address]483 Creatinine [Mass/Vol] 0.94 mg/dL Normal 0.90-1.30 [facility] Comment on above: Performed By: #### 1 [id number], [id number], [id number] ####[facility] (DEFAULT)[address] [place] [address]2079 Glucose [Mass/Vol] 109.0 mg/dL Normal 74.0-118.0 [facility] Comment on above: Performed By: #### 1 [id number], [id number], [id number] ####[facility] (DEFAULT)[address] [place] [address] 70853 Osmolality 281 mOsm/L Invalid Interpretation Code [facility] Comment on above: Performed By: #### 1 [id number], [id number], [id number] ####[facility] (DEFAULT)[address] [place] [address]1549 Potassium [Moles/Vol] 4.1 mmol/L Normal 3.6-5.1 [facility] Comment on above: Performed By: #### 1 [id number], [id number], [id number] ####[facility] (DEFAULT)[address] [place] [address] 43425 Sodium [Moles/Vol] 139.0 mmol/L Normal 136.0-144.0 [facility] Comment on above: Performed By: #### 1 [id number], [id number], [id number] ####[facility] (DEFAULT)[address] [place] [address] 08021 Urea nitrogen [Mass/Vol] 21 mg/dL Normal 8-26 [facility] Comment on above: Performed By: #### 1 [id number], [id number], [id number] ####[facility] (DEFAULT)[address] [place] [address] 30234 Urea nitrogen/Creatinine [Mass ratio] 22.0 mg/mg High 4.6-16.2 [facility] Comment on above: Performed By: #### 1 [id number], [id number], [id number] ####[facility] (DEFAULT)[address] [place] [address] 85320 CBC w/ Auto Diffon 2 Erythrocyte distribution width (RBC) [Ratio] 14.0 % Normal 11.5-15.0 [facility] Comment on above: Performed By: #### 1 [id number], [id number], [id number] #### [facility] (DEFAULT) [address] [place] [address]23 Hematocrit (Bld) [Volume fraction] 45.0 % Normal 34.8-51.9 [facility] Comment on above: Performed By: #### 1 [id number], [id number], [id number] #### [facility] (DEFAULT) [address] [place] [address] 89458 Hemoglobin (Bld) [Mass/Vol] 14.5 g/dL Normal 11.8-17.7 [facility] Comment on above: Performed By: #### 1 [id number], [id number], [id number] #### [facility] (DEFAULT) [address] [place] [address] 07715 Instr WBC 7.0 x10 Invalid Interpretation Code [facility] Comment on above: Performed By: #### 1 [id number], [id number], [id number] #### [facility] (DEFAULT) [address] [place] [address] 14520 Man Diff? Auto Normal [facility] Comment on above: Performed By: #### 1 [id number], [id number], [id number] #### [facility] (DEFAULT) [address] [place] [address] 15395 MCH (RBC) [Entitic mass] 30 pg Normal 24-34 [facility] Comment on above: Performed By: #### 1 [id number], [id number], [id number] #### [facility] (DEFAULT) [address] [place] [address] 68592 MCHC (RBC) [Mass/Vol] 32 g/dL Normal 26-37 [facility] Comment on above: Performed By: #### 1 [id number], [id number], [id number] #### [facility] (DEFAULT) [address] [place] [address] 58872 MCV (RBC) [Entitic vol] 93 fL Normal 81-100 [facility] Comment on above: Performed By: #### 1 [id number], [id number], [id number] #### [facility] (DEFAULT) [address] [place] [address] 60751 Platelet 216 x10 Normal 138-427 [facility] Comment on above: Performed By: #### 1 [id number], [id number], [id number] #### [facility] (DEFAULT) [address] [place] [address] 00418 Platelet mean volume (Bld) [Entitic vol] 10.2 fL Normal 6.3-10.2 [facility] Comment on above: Performed By: #### 1 [id number], [id number], [id number] #### [facility] (DEFAULT) [address] [place] [address] 62740 RBC 4.86 x10 Normal 3.70-5.30 [facility] Comment on above: Performed By: #### 1 [id number], [id number], [id number] #### [facility] (DEFAULT) [address] [place] [address] 86272 WBC 7.0 x10 Normal 3.5-10.5 [facility] Comment on above: Performed By: #### 1 [id number], [id number], [id number] #### [facility] (DEFAULT) [address] [place] [address] 07630 [facility] XR Bone Length Studies Scanograms [...] MD 09/04/21 4:45 pm Technologist: Elysia SIMONS [facility] Complete Blood Count with Au to Diffon 06-09-2021 Basophils (Bld) [#/Vol] 0.04 10*3/uL Normal 0.00-0.20 [facility] Comment on above: Performed By: #### C FRANCISCA CBCAD #### [facility] [address], [place] [id number] Basophils/100 WBC (Bld) 0.6 % Normal [facility] Comment on above: Performed By: #### C FRANCISCA, CBCAD #### [facility] [address] [place], [place] [id number] Eosinophils (Bld) [#/Vol] 0.11 10*3/uL Normal 0.02-0.50 [facility] Comment on above: Performed By: #### C FRANCISCA, CBCAD #### [facility] [address] [place], [place] [id number] Eosinophils/100 WBC (Bld) 1.7 % Normal [facility] Comment on above: Performed By: #### C MP, CBCAD #### [facility] [address] [place], [place] [id number] Erythrocyte distribution width (RBC) [Ratio] 13.7 % Normal 11.0-15.0 [facility] Comment on above: Performed By: #### C MP, CBCAD #### [facility] [address] [place], [place] [id number] Hematocrit (Bld) [Volume fraction] 43.3 % Normal 38.5-50.0 [facility] Comment on above: Performed By: #### C MP, CBCAD #### [facility] [address] [place], [place] [id number] Hemoglobin (Bld) [Mass/Vol] 14.1 g/dL Normal 13.0-17.1 [facility] Comment on above: Performed By: #### C FRANCISCA, CBCAD #### [facility] [address] [place], [place] [id number] Lymphocytes (Bld) [#/Vol] 1.7 10*3/uL Normal 0.9-3.9 [facility] Comment on above: Performed By: #### C FRANCISCA, CBCAD #### [facility] [address] [place], [place] [id number] Lymphocytes/100 WBC (Bld) 26.3 % Normal [facility] Comment on above: Performed By: #### C FRANCISCA, CBCAD #### [facility] [address] [place], [place] [id number] MCH (RBC) [Entitic mass] 29.1 pg Normal 27.0-33.0 [facility] Comment on above: Performed By: #### C FRANCISCA, CBCAD #### [facility] [address] [place], [place] [id number] MCHC (RBC) [Mass/Vol] 32.6 g/dL Normal 32.0-36.0 [facility] Comment on above: Performed By: #### C FRANCISCA, CBCAD #### [facility] [address] [place], [place] [id number] MCV (RBC) [Entitic vol] 90 fL Normal 80-100 [facility] Comment on above: Performed By: #### C FRANCISCA, CBCAD #### [facility] [address] [place], [place] [id number] Monocytes (Bld) [#/Vol] 0.6 10*3/uL Normal 0.2-0.9 [facility] Comment on above: Performed By: #### C MP, CBCAD #### [facility] [address] [place], [place] [id number] Monocytes/100 WBC (Bld) 9.6 % Normal [facility] Comment on above: Performed By: #### C MP, CBCAD #### [facility] [address] [place], [place] [id number] Neutrophils (Bld) [#/Vol] 3.9 10*3/uL Normal 1.5-7.8 [facility] Comment on above: Performed By: #### C MP, CBCAD #### [facility] [address] [place], [place] [id number] Neutrophils/100 WBC (Bld) 61.5 % Normal [facility] Comment on above: Performed By: #### C MP, CBCAD #### [facility] [address] [place], [place] [id number] Platelet mean volume (Bld) [Entitic vol] 11.30 fL Normal 7.50-12.50 [facility] Comment on above: Performed By: #### C MP, CBCAD #### [facility] [address] [place], [place] [id number] Platelets (Bld) [#/Vol] 222 10*3/uL Normal 140-400 [facility] Comment on above: Performed By: #### C MP, CBCAD #### [facility] [address] [place], [place] [id number] RBC (Bld) [#/Vol] 4.84 10*6/uL Normal 4.20-5.80 [facility] Comment on above: Performed By: #### C MP, CBCAD #### [facility] [address] [place], [place] [id number] RDW-SD 44.9 fL Normal 37.0-50.0 [facility] Comment on above: Performed By: #### C MP, CBCAD #### [facility] [address] [place], [place] [id number] WBC (Bld) [#/Vol] 6.4 10*3/uL Normal 3.8-11.0 [employer] Comment on above: Performed By: #### C MP, CBCAD #### [facility] [address] [place], [place] [id number] Comprehensive Metabolic Pane chikis 06-09-2021 Albumin [Mass/Vol] 4.6 g/dL Normal 3.6-5.1 [employer] [place] [employer] Comment on above: Performed By: #### C MP, CBCAD #### [facility] [address] [place], [place] [id number] Albumin/Globulin [Mass ratio] 2.2 {ratio} Normal 1.0-2.5 [facility] Comment on above: Performed By: #### C MP, CBCAD #### [facility] [address] [place], [place] [id number] ALP [Catalytic activity/Vol] 80 U/L Normal 40-129 [facility] Comment on above: Performed By: #### C MP, CBCAD #### [facility] [address] [place], [place] [id number] ALT [Catalytic activity/Vol] 16 U/L Normal 9-46 [facility] Comment on above: Result Comment: 01/13 Female reference range changed. Performed By: #### C MP, CBCAD #### [facility] [address] [place], [place] [id number] Anion gap [Moles/Vol] 17 mmol/L Normal 12-20 [facility] Comment on above: Result Comment: Effe ctive 02/18/2019 reference range changed. Performed By: #### C MP, CBCAD #### [facility] [address] [place], [place] [id number] AST [Catalytic activity/Vol] 22 U/L Normal 10-40 [facility] Comment on above: Performed By: #### C MP, CBCAD #### [facility] [address] [place], [place] [id number] Bilirubin [Mass/Vol] 0.40 mg/dL Normal 0.30-1.20 [facility] Comment on above: Performed By: #### C MP, CBCAD #### [facility] [address] [place], [place] [id number] BUN/CREA 20 Ratio Normal 6-22 [facility] Comment on above: Performed By: #### C MP, CBCAD #### [facility] [address] [place], [place] [id number] Calcium [Mass/Vol] 9.4 mg/dL Normal 8.6-10.2 [facility] Comment on above: Performed By: #### C MP, CBCAD #### [facility] [address] [place], [place] [id number] Chloride [Moles/Vol] 101 mmol/L Normal 98-107 [facility] Comment on above: Performed By: #### C MP, CBCAD #### [facility] [address] [place], [place] [id number] CO2 [Moles/Vol] 26 mmol/L Normal 20-31 [facility] Comment on above: Performed By: #### C MP, CBCAD #### [facility] [address] [place], [place] [id number] Creatinine [Mass/Vol] 0.7 mg/dL Normal 0.7-1.4 [facility] Comment on above: Performed By: #### C MP, CBCAD #### [facility] [address] [place], [place] [id number] eGFRAA 132 mL/min/1.73m2 Normal >60 [facility] Comment on above: Performed By: #### C MP, CBCAD #### [facility] [address] [place], [place] [id number] eGFRNAA 109 mL/min/1.73m2 Normal >60 [facility] Comment on above: Performed By: #### C MP, CBCAD #### [facility] [address] [place], [place] [id number] Globulin (S) [Mass/Vol] 2.1 g/dL Normal 1.9-3.7 [facility] Comment on above: Performed By: #### C MP, CBCAD #### [facility] [address] [place], [place] [id number] Glucose [Mass/Vol] 98 mg/dL Normal 65-99 [facility] Comment on above: Result Comment: For FASTING Glucose --- ADA reference ranges: Normal 65-99 mg/dl Prediabetes 100-125 Diabetes >/= 126 Performed By: #### C MP, CBCAD #### [facility] [address] [place], [place] [id number] Potassium [Moles/Vol] 3.9 mmol/L Normal 3.5-5.5 [facility] Comment on above: Performed By: #### C MP, CBCAD #### [facility] [address] [place], [place] [id number] Protein [Mass/Vol] 6.7 g/dL Normal 6.1-8.1 [facility] Comment on above: Performed By: #### C MP, CBCAD #### [facility] [address] [place], [place] [id number] Sodium [Moles/Vol] 139 mmol/L Normal 135-146 [facility] Comment on above: Performed By: #### C MP, CBCAD #### [facility] [address] [place], [place] [id number] Urea nitrogen [Mass/Vol] 14 mg/dL Normal 7-25 [facility] Comment on above: Performed By: #### C MP, CBCAD #### [facility] [address] [place], [place] [id number] Hemoglobin A1Con 06-09-2021 EAG 136.98 Normal [facility] Comment on above: Performed By: #### A 1C #### [facility] [address] [place], [place] [id number] HbA1c (Bld) [Mass fraction] 6.4 % High 4.0-6.0 [facility] Comment on above: Performed By: #### A 1C #### [facility] [address] [place], [place] [id number] Q - B-TYPE NATRIURETIC (BNP) on 06-09-2021 Natriuretic peptide B (Bld) [Mass/Vol] 33 pg/mL Normal <100 [facility] Comment on above: Order Comment: [facility] performed at: QPT, [facility], [address], [address] [facility], [place], [address], Verification Engineer: Curtis Lyons MD [facility] Date/Time: [facility] Results Received Date/Time: [facility] Reported Date/Time: FASTING: NO Result Comment: BNP levels increase with age in the general population with the highest values seen in individuals greater than 75 years of age. Reference: J. Am. Cheryl. Cardiol. 2002; 40:976-982. Performed By: #### [id number] #### [facility] [address] [place] [address] Coding Summaryon 03-16-2021 Coding Summary HTMLBase 64 VfzjrjewWXv2iOw+PGhl YWQ+EM7OBCZhA75uwZZy zT8JG6bXKU3COGSOUAOO AE3EUO4avKK5VNlpY0Vd biAv VukdsUCaVM35KRt0SHR7 sGfuUGiicM4ehXCcA5q5 HvGeJF06gC43SQocAAYa KhS6LdQlcmacwFLv R5evZhTqcKCjDkk+PHRh YmxlIHdpZHRoPScxMDAl QtHhhTulUL8iHc6tVUYt LWNvbGxhcHNlOiBj q1nnNBToGYlyAH7zkQvz V0TfdKI7JOSrr6g8Ik00 dHI+BAQxLMW0fBzdVDrp j879SgZio9rqXBW7 rCNfKOvlMJT1T53ep8S4 RDFcTVIfNGD0tWP3yC8z dIycrnelC6SjtMKcWrU6 VIP9hTGqwY5pgZgm crbeeW2fXfu+A47JPJ1O GKHRMI2HKmi6Q2JuJeze dHI+SI25DQCsGR52fOOa uTUdl1yjqRv9PlBy SULuDYH6iUgqQNcmm0Zb TYKcW26grYQiv8U7ZALd bLwhwSQuMzFcyGN8sX8s IMjvgrywi3fuhbxy Hncgw3yifr19iM51R55h XRntUSAiJVB2OJDeGXLe tFpcvz6mcE8jCj1+IDxj p8kkk3ozdYc1MvOq SQDsoeDieFojKKY1m0Wj Op95A8IjjQuox6JhDne1 lv11kLOxc7W6tUR8RBzl SQCokU7uJMilHcO5 HTEmSwNluS81rKWrLKfu Rd6fsUejcErmVM6aMUSb gukdKNZmgL1pRQGfvMTx mPnzPO7aBCIuqqgw b830ZpAyKPO4PUNqbWPf Z0HpoT0cJiXgNLPkYONk G2LftXCyEJhwJ161XMnq RuA1OXIpozSnR7El UYQocJefDvR2f0Y3Fi1G t8WazvxhMOM5NIwrDABe NjKnNlZuRdW3C0XgGtm9 BVWtiSgvZW3wS5Ty CNCsdhbdqzarpWN1TCDb AHLduM35bTTbCLgcGt5w j9W6d575XHBnNPTivP07 Ug6xsCnvEJRfmLTX gD5xwjknh0gbevycNyJx QGXdQMs3KAq5STQhpVhi JxYvUGW4BkQ3LNJ9mDWv yN8oaBukpxjcoS1l Oyc+F91puA9yORV8OZF0 ogcdHAGjivThVI76NS42 F0PuOdcxsJRwtST+PGRp bsYzdAwgFR5jYrCm m9inn2VjPCinA8AuTLWw IIzpRof2XFQmAAJ5nAZ4 tL3pYHWjLNids0H5aKH5 J6TgouMkdb7ik9hx CFGyRUffD41dxURuv7L9 YLCumGD1RXAskNsaRmLa kT40Ozz+CSUdkTvsz0Tj Hokge9xav1adaJo1 IjMwJSIgdmFsaWduPSJ0 v9SiEi43E59cFItiZEHf ENXoVBDoKESphXpcpo9j tI4jAq0+PGNvbCB3 yBN4kW3qEAWhGxN9LXhh O918TlCsyDYzGaocc5zp k4zscEj9IpHhTPNzkeFv xUtjGRH9f4QhSm61 S12iZDgyIEPcBTOhJKBj XWFcsYtacg7tmT4bOx9+ SC9bc1irfm50gI88cLH+ USSjQFQ3gVfcNMau OZQfiV8gVRptMdU7GBPu LfFtyC81vNMyFAopNs2v gQqtfXrzSP1vYPSnuufk o043HeHax4rtUSXm yXVmNQvcKUM6V55xh8F9 GSMxPZWwLHM8bQJ0jF6c bGlnbjogbGVmdDsgdmVy sPasBXgtBRcxH944 IHRvcDsnPlBhdGllbnQg YkQyLGi6I6MlDqo4EEOv bMijJY0tjUTvCPetTu0v nTnceDbbOD7wIAEp drlec511OjRdx0gzXSTs eDBzKXamUQP0X83kn0Q0 FWStFNHkJFW2rQH7eU2q bGlnbjogbGVmdDsg sgUeyLqdVGyiCNwzR750 IHRvcDsnPkJpcnRoIERh iCX2KN30MU35wPSgt5B5 lLT4B5UbWSNevoyb zqgibNK8EBPfTNKxvU58 Nm6xwXzcSl5bSPYfHFT7 VGZjyZOmN5NdjQ8bMoRb GAAkPMUoV1FxnLWi CEylW951AZbaDbU5YNNj ogVeU6AnEGWutSpvPfP3 q0P9Qy2AC2Y7FG22SC86 dYAhd1K3wKX3J1Io QUCkinepxnmdxNE7KUSo FBNnqL68Mh4smVawCx1f QVJuATE0TLNnfXOhN2Rs gT1oAaVgWQCsLHUt Y4XagOFmDFdkG591JMqe PhF9IVMnopBzP1MyDYBl hXbuDuR7j7A6Ji6GQKw3 JY90AQ33eNYkq5X0 qDX7G0FwXPLfmullygoj oBO5YRBoKAAetL19Pw1s gQtmNf4sVZXwAOE1KLAd uEPcL2EvyU7rJuAw UNChNIHnA0KvxVLoCCzv A926TRqkBeM5NCSwwcWj J1PjBUGouIvmCcW0b8H6 Ne9DZYKpQY21IDX6 fIC2IX69ST46G2PmImcq dGFibGU+PHRhYmxlIHdp ZHRoPScxMDAlJyBzdHls EQ6kHn6lXLRwZPLs uDmzjCXlFqSjy5qtWFTs YPkvIP7lnXuoE1BllXO7 CSDoi3f4Hd65K52tU9Uh dXA+VOXrgPG4iEH5 xI8hYsIlKoN5KEexR926 BuWqtAQgUnofb6oel3zw aHw9MuQ2ODAokhZxdFhx TVD7v7TlGb83B92h IHdpZHRoPSIxNSUiIHZh lKczke8ovN5tHs0+PGNv uIM0iUO1kP0zUsGiCgK1 KMvrU867RwQevASf Djoix9tdk1nwyXn6ZwZv GNRupoRffRqiQSW4m6Zz Hn88Q3UtfMpts7BxMxm2 ap29jTLmy4Y2oGF5 V4QlWTUcmicziNRuyTfr EW9hXTTqxyvjHTTzsE2t CAEsH2j6PpNvInP3YAdl W9EzyoC9EQJxwXCv FPjbIHD0B81yq3P1LXEz ZSJkIQA3aJH7xO8adSov bjogbGVmdDsgdmVydGlj IVcrNAmbB292JYLw iHbbEJAshS2rWNBdcCGj mZfbQD6xBREuimyeLatD QkVSTElORywgTEFXUkVO F5QzQHgfyPZ+PHRk SUH0kJlmZMpfBHLwmG0d FZGvG8g5GmIlJjQ4QXjq P2TkQOBbyrnbGh06fO8y IpJnVuF8KXfrS1Xm ggB0SWFcnAHdGGzyFMX4 F59yq4G5YCMiWUVhVDG3 rMT4uI4abTpydssbnNUz dDsgdmVydGljYWwt LTasI436PSYoeNqqRcN4 VbBtOuO8HCn7N1JpVhg6 HCSjsFziLH2yeOMfJVur Lb8roFmsiMhbLK0k FPGmtyikMSUvmV5hOSOq jPJcrDzvOK6kCYTdmruv z341SvQsOYO0FFKgaDBt M2SicA9yUdLxMEQv BBXpV1SvySTnKLvoC960 MYxcTbB6RHQmsqQeQ2Jw FBDaaJtaPgF4x6S7Rv06 MiBZZWFyczwvdGQ+ PCDsYLK1dBdfNRvnEMEi lF6hJZLfC3s8DpTaHgF1 AQgjN4PzHYScvzgfXt08 tY5qXoMxFgM9TTls W6CahcV3XMQrvZSkJCjm KVE6G76dw8O7LGHeCVSw WYJ7vNR6sP9rnTxwebkq bGVmdDsgdmVydGlj COpeFIzlD829FGUynLxd Zl8OKZZ6Q6VuNdn9HPCd eYvgUL0bkSRfYVsfNk9s wNcspGvyQP1mNJGh ymphBORhmD0kJBYlhOLt yRgyIS9eJGBbwypmx524 ElVsQKJ3WPHpqJCxF0Xv sO6lVaHjSKSaOTLv I2IxcPWyXXltD264JXrb QpX6RGZaevFdT9QqJHGc fPivBzG1s1S1Nm2XJByx dGQ+KY60bq44J4Kf EqlvKvu7DBByMOB3oZM6 tH0dFHQcXOzvi5T9lCM5 F0LiiyAvod8ho5atJJIv LCkkY52vlUHcl3M1 JEShrQD4SUJskBoaRzYd aG67Oex+ZBFlwDjke3Ni Wawaa2djl6cizWv9JuMn JSIgdmFsaWduPSJ0 a4KrUd94Q91rWYoxHAHw BHUqRYMkJQAavUxfyu4c bI2pZa5+VKGdvOZ5oEH8 sM0zAhHiOaV3FTma Q620SwDyxJWpHdypu5rq s3fntZa2TwDsCZEzkeTn oHfsGIE8k0JpTt78M3Ew cVahl0RtUyi1lx64 sMWov8Q4zQV4K7JoWORf tlufcWStlKjyDB5wHHIt vesgMLWlwU5pJPLqL5t2 VwBfZuT4DMpqB4Fk exQ7UVOvvYDpPHQkcDSZ dZ4bgizgu8cfqcekUsTk UPEkNJp6NKi5HRYqnRpi OwHcXSN4AlU5WCR2 iFMsfJ9rbWyrxvxkvJ9v Oyc+EMw8d9pphYLzHZ4n gAT5AC04KL81wQTbr7L6 iPY0L2VzGUVsqcur yzrboJI7NYCmFFIkyS51 Uy3fzDnvLl9vSACwGBM2 DWBuiTHgR6UndH7nWcVs UHGxBSBqK7CmeCPr SPapH581FPuzPmB6COFs zjFkC8VdUNJmsRxrInC7 c6O4Cs4HNT27DZ75UB14 mWRzg2T7vWW2W7Av TBXbwbqdenlbwUH8TLAg LJXmhS80Jx4imLkjSi8x TGCyHOS3HWVjsFRrB6Nt uC3vOgTfWVHhLGYw T0WtdLCvZEouH512VTts OyJ7RLZzrfNcS4ReZAJp oQxbYvZ8o6K9Ad0HWs24 XV10AQ43yIMwz7D3 wNY0D5JnTPBtmmzpseov aZM8FAUyYQYbkL21Cx9i hNvjLs5wBXWpUQL3BUFb mOXhE0MiaN8iAfEv CFXiUUBgY8YkaYAgBFji B301QWvcYxZ1RJEgszVi Y2VcVLWwyRceAlO7y1Q6 Ec5LBYakkbg5U5Kc PjwvdHI+DL60MSOqIO18 lNSwrEOco0nncZd1WaDk MIFjMDO6wEmyMScdz1Ej VZSzC49ioNYlv5N4 IGN (more content not included)... [facility] Consent Formson 03-12-2021 Consent Forms [id number] [email or web address] [facility] Coding Summaryon 03-09-2021 Coding Summary HTMLBase 64 UllokwqyTSr8pAh+PGhl YWQ+HT8TSPYnU55wuKGd sY3AT9sPAD6JYEOQNAEE LT1PBW9prBF1VJlwF5Dc biAv PetifUTnCZ64VBo5YCQ2 hQzuVHgkgE0bcOEaN3f8 EiFjPF57mS75YGcqWYNc WnW3AuYmwjsndIVl K6cwEhEqiLNtCgp+PHRh YmxlIHdpZHRoPScxMDAl XqLocNlcBL5hNo9jBWBx LWNvbGxhcHNlOiBj y0paAOKeLVjaWA6hfDui P8RrkAI6UEFfn1o9Xr03 dHI+RQFjMXB0lPbcIVui s407ThJnn6egMSF6 uZGgOYctGZI2E31kt6R9 HFYjXCMpYWJ0dCY1zS8y dTlcobhtA3AdqGGdVkY8 YOR1xSTkcC8pxMol xghcaU8oHfw+C29SBH1J UAVORE7AGwy3B9FuEtih dHI+VM95WIUkJC66cSRf vAPvf1ltdAt8WyEo JFAjZYR8lDosVGhok4Yl ZCFaE82syBHwq0R4JSGb wCwibFGpWxBcxSE8hO7x AZwlqaqyn3lomaus Oaxed0ofgc69iW02B23m LMbeTELcQUK5CPTzGMXk lSocqy8uiF9kOq3+IDxj o4xbb1jhdMi3TtHa LTAiyjAnvPggIIO2l0Wc Ac54U9IvhHgwo5DwVxv9 uu55dBZjx1O0aIE5QFiy MJFevV6vDVizVcJ0 VPNgZvOfzX94mVScCPxr Nu3dtTgjnOlyMK2wOPTh xvweVCAqcR5wEFIfzNJj pExdIH0pEMZrkxia s216RlIhHSN4KAKzoGFz Y2IgzT0tItTzIYRuOXQt X0NubLFkLZdiA331TMae NhK0EREthfWxX2Nl GMDclPhiPvG8r6O2Lv5F z4SbaawyPWM3XTokRHIe VkU7UgSkDrR4S4HnSxn7 KKBdcOuqRF2eO6Vu SOFzsjnpnhpmqHS6UHGf PVHsvC90eEDfFRfvZw3h m4B3t863HWSeYNLdmB88 Bb0lsQzdQFUayNWI iJ1mphwcm1zzimoaMiSb LAImNWw8HBn9ACHchYcs FjLbAJS0UuP8DYF1xSPq cL3scJodndpybA2f Oyc+X59kcF1dQYA8OTM3 xbesGLQdbkEiLP43ON16 B3KwJbhcwUBmhCO+PGRp lbHeuYhnEZ7bFgSm n8lkq5SnIXpuE9ThNMHb EGivIzt1KWSgRLU3sAM5 uE2uSKZqPZmdl3J8yWA9 G4SrsaSusw7ei9gk SGYqOYdhH47omWFdb7D2 EVYngDT9MGBwcCagVyJc qF14Azk+NGKigGpvd8Yb Ifwqa9gjb3quxWz5 IjMwJSIgdmFsaWduPSJ0 m7QlOp54Q21cZEsmWECx RIVaTKHvGJWjwIyemg9o hA0uSj5+PGNvbCB3 yMS7zU3rGXJaWwQ6AUnh B319RkGsxAFpQhcss9lm k5ymaSc6QbMyAHZjymHp kFohNRT6u6GjIu70 M12lQJhdUJMmSCKeWDOf ADJxrIuhyy7rzN1gPy7+ TT0pa0gsuq16bF03kTO+ NJJoWUX4wXvjUDjt CAUsmH6tFGdcVaR1GTZb TiPyhE74tHXkHPbzSc0d fRwmqEbbNI7eFSDzootj a594UbEjx8uhOHXc cUQtXIajDPN2L54hj7N7 SAMvDMBvHTZ1iBR0qL5g bGlnbjogbGVmdDsgdmVy mUshKNxaOYzmD014 IHRvcDsnPlBhdGllbnQg RvCmGDl5L5FcNmn2AKMp bIshQG1nqZTgTGyqYg9h yLamgSjjWU7sRSFx fwtin106RyVpb8tpDCEo fTLdSEjwVFX0A26bz8J0 RQNaFIGjTTI2tQH7rN1p bGlnbjogbGVmdDsg crPyyElsQHqxPYzxE391 IHRvcDsnPkJpcnRoIERh qCA4RQ07BG61pAChh2L9 yWK9E7NwXXLgzmqk avztcWM5PQEgYSQkfA27 Tk1yiAvaVa1iYQPsTWR9 BCEhpBDxG3EbhD8mKeFx QTAzDJFsJ7NbmESa ZBdqY851UKmrDzE2HMQo elAjT3GjUHMewNhxZeZ3 r5C4Me4GQ1U0AM44PJ79 lIHsk0Z9jOX8U7Em LEEskyhttkuoiIT2UKAn KQQapK67Mp7alXskCe4w AJMrCXG2ZXRlsZWyT3Tn cC4vTmObQKHqIYHs U6VbnRTmQGrqG984LLcl OeD9USHytxPvJ3PjYZDs hWewVxR2d4B3Vx3YXLd3 CA64II11qSEwn8O1 lZG4C9PzHZRvzwiyywqq nCE8MAUxVWSozY78Ih9m wBmqPr2nNLYdVLW4DGZh aGEpU8NfhZ1tRqRw JAKbVJGqM2EbgBXwHJri R688ZCrjUaU7FKBlelPs G6MjFFIylOwlXuA8g8J0 So4LYGUuSP99TKQ0 xOD1BQ28DK76U0BnBsyb dGFibGU+PHRhYmxlIHdp ZHRoPScxMDAlJyBzdHls MG5eFk7tOGWsDLVl aWdukWWgMwKcg6toZFLx YBwpVE3duNnlV8VvnUJ6 EUXac4q5Ca27D95zP6Jo dXA+NGDpdQI4dCE2 vC7tToBqXyY5JFlkF678 WmVcmDTxMjnre2eqk5kq uAn0UuD9ZGMdojBscBgk EKB6s2PxKi07Y16k IHdpZHRoPSIxNSUiIHZh tVlzcx9daX4tHn2+PGNv zZN7lQM5cY6dStToPgB6 ULgzZ163FsNfeYUa Sxazk8tts9lsxKn3ZeEl QSZklvJjdTymLWW0w4El Uv73Q3PqjQywr4VtHsu4 ws80pYGuj6Z2fJK3 K6WiVJEumyyjdPMumKsy CN1mWYOkqvmwDYGwuY2a AHOqG1z4UvXlLaC9OHwq J3QebhJ1TCUkpFIe YVshRBQ5X78mv8L9ATAz REFpWEP7gVC2qE2apXrr bjogbGVmdDsgdmVydGlj HLdeUPvaY515JSKa qBrvWZJnqI1oJNFtbAGb nXhnWD1rAVSxxwhbKzcF QkVSTElORywgTEFXUkVO B8OhJNgkhTD+PHRk CWB2hCncAFmiWYGqvA0m SPDjU6z5GfQrYlS5ONwc M8AyBJYtlqwzRl57lB9p DmBkSkD2DCciV6Zk jlP5LPPgpQXeLGuoWKY8 A69xf1V9JIAfTNVqYPW0 qFG2kJ2ukOymirnuuOXz dDsgdmVydGljYWwt ONohS525CHEgtGotMsS2 IsZyYkJ0DSs8H8LmJir7 OZFppPmvQE1niAIyIUwg Bz5gkLvvjIwmZT2p YLLwstrhBDUyjY4mODGk oMGgxDwvTG4uWUVjbzzn s409JlTpYZN0MYLhbAUq K7HrkQ0pZhAvXTLe ZOUmC7BurRUoNKkxF071 GNqbVhZ1HMSmxpVoO5Ur LRNwhKscQpC4y7N1Xh40 MiBZZWFyczwvdGQ+ FWTxVCZ8gWmxJMdvSNGo bU8jUUYgL6y2DaQqSrI6 QBmwO1GdXWYovwtwEc73 zJ8nLuDzFtK4XVxc V0DfueO1DLCvyTZwTUtm QUC9S05be3R6QLRdCUBh IER7rIZ2nA0szZyyphxz bGVmdDsgdmVydGlj YIcvHBbkE087OFUfmBtv Tg8ZDCU1H6IdVfh0DCNq jSmyZM6ncJPtOXygVp8n sBszxRibGQ9bOHCw swosYYRgeM6qVDAluHBb oUozGT9uZLMpngvgb886 DxXhPAM8YIBhzTUdC8Gx nM2iCcGbQRRnNVTm H0KwbEZqRUgeH925MEpb GmQ1RWXwxlZfH7FpUPTj lGjtBaK5e9C4Pw0PYwHe cnZhdGlvbjwvdGQ+ AR66lc03E1PeKkztApa2 HRIhYMD5qKK2vJ0gPQKb JWeuy0J9mDN9T4DrjzPg qs2ot5ucJPMoLNtc K87evRGej2Y1JHWbrIW3 SXXnqJapKfAyyU45Cdg+ BBEenFbqa0AnCyzpt2rs x2xkjEb4SuCdCGVx baYhqHgcBZN2p8ItDw77 X70vVJpjJKWpINPgWNNg XSMsrTrtjd8dgB5zXn4+ CEHawIK6hSK5aM8t XhDdUmO1UVojK697HcAg mLKsGdult8iae1ccpNt3 IjIwJSIgdmFsaWduPSJ0 r5GnSq46Z4HnbRav a0TxAwa5cx71eOFnn4U5 sFY8E9NrQHWceefgkGFy fXssXT7yJRGbsxzmOKTo dI8kTLXmC0u2CgKj TaL9AZcuO5WhxbN6DQYl wZCcLNBexYQPoO6zuexm b4ddwkzdYrIgFFWeHBz1 CYo5VVFogYfaNdSd BTN9QsG2GTB6iGZysY4n rVzewzrrsV8qUqt+UGh5 o8acnPWrZV1dqEP7CJ26 EL60aGJfu5I2jIM1 G3RqYNEbqetiuceccUP2 PUGqIAVshO47Ql4ebXem Tl7tAKGeSWZ6BCEaeBKs J6QqvO0bKsDhDTTp TXBaF0LkhFEnHYgqG620 FThlRhW8MWGpcwHnY8Nk JMLzcByoKhO2q5N7Hj4K QG98ZO40ZR80wMXq h8C5vMR2L4VmTFXkyanq ddibyBW1SBQdGMXtlJ41 Jz3ooBnnZn3uUPCfBEG6 LSPuuEUjQ3UbaC8q QhNgPCEjRDSrL9BcuKHb VDppB046IEdxArB5XONe kfSjL4VeCSZyhRfuIgB0 m3X8Xl0EMl81DP16 DT91dDTvs7T9wOT7K1Fu ALOfbjbjwevrgYV3VBIu TFAylO93Hq1nvTekNy3r ZKPcXVQ1EKEpyGOn N3CyrY0tPcWhSMGsIZUr G6QefFWaXNcdJ167WBzh BkZ6SISxlhOzD6MxIZQx uAorBwB3a5A1Ab9M YKvmren2R5BhKsoviMF+ DT79PQZcRA41iDAinNFy b1ujlFv7EqQgWLTqNPW6 jSioNTzik1YwOXKq Y29 (more content not included)... [facility] Coding Summaryon 03-08-2021 Coding Summary HTMLBase 64 KvilryytBRb7vPv+PGhl YWQ+OX3JUUKtL65hnVSq jV7LX7hMRB2JPCYXCBBF RS2YRQ8ceNA4EPtyG1Jc biAv MhhgzDLhHY13PXd7CRT2 cYnlCQjvwJ4mjTFwO2k0 MnGmCS13lX96NYdrXMLr FiY6WeKrolnxpAVm J5poOwNtzEJkRux+PHRh YmxlIHdpZHRoPScxMDAl PkNcdUgeFW5sTb4bRHFg LWNvbGxhcHNlOiBj p7uhRAFjMVnoIH4alWfm D4EofKS4FAQnu9y3Uj63 dHI+PAUrYZC4zUrgGDcn v825HvRis0kvKIM4 cQThXObfXOR9A14py5G2 FCWpQGZaKVZ5kHX6uX7k mMqkvwksE0WsiJTuGzT7 XKA9zZCeoT0qoEiq qpzizB2oEkt+Q21UGA9W XCEDYM5RZhz4M7AfYolf dHI+PR70AJUrVD81iLUa iECcp5fynEs4UkYd LNHkVQS0zSjgMExsu2Pm IHSyR82soWKit2D7NYAg oBtmxXGgIpKjpRW8fH5g EAlzzrusk2mskfrt Efoix7mabd05fS94B21o UImwUTZqCNF4RXEbSIYu lPxyyt7jnH5sOe0+IDxj t7bry6ymdRx1JuQa TOGdrsPuxQqkWME7s4Bz Af39T8DrrKiim7UhPhu6 sy40qPHoo9T6fNM3FIrp VWQpiN5pRAjrAvL3 XLVlYwSmqQ52uGIdSFbq Pe3osUrmeDdoVK3bXOUu zzroOJHiaD7bPVRenJAo qKbmUY5xLFJsxbib d664VoFyGBJ1XKMymDHh U3WewM1hIbZuWJNePBYz I8AxzYBnGShuF174OBmx KaY5DJKwhbPdI3St GWZjfTfyBgC9m2L1Od4Q c5NteszjZUF4GRfeDYFb JqG8CvZaAdH3G6OgGjv2 XKFmqXbgQR4uY9Ke LJXtycnlpvjldSA7HHAy EDJdfT86nHNgQDdjTp0q n7H1v350SJJjNPJlgZ49 Nn0noChyZGWrbIZB aX8hdkkgn6oxofbdDlSh PAOmXZo1CFc2YKIhnKfq KzYvZTU1PxG2SDW9pQQy vR4stKxlqxtrsJ5l Oyc+V61khR0hVZE8SYM4 npwnZUQfhbQeCK77AO93 B1PhAurgxOHpmFC+PGRp qzSotLqsHU6zXqLo m5pja7UhMSihA2FpTQTm MNayXjl2FODwFOD1lVN4 fM1hPPZrRCeis3O5sJG2 G2EdokJrrq1ax9ke FVHkXTovD50tkFMnr3C6 QVYbpXY2FXMaeRhcRaTh wK37Kgj+WJEbqWtow7Yc Jrnpl2bxv9ejoVa1 IjMwJSIgdmFsaWduPSJ0 s5RjKf19Z90sKFplJJXs URThCZLhUCIueAjntj4s aY3bBs3+PGNvbCB3 dFB9pN0wGKEdWaU1JEou W003HkXftFUvFhorb8if p8zavRl8CpDqTTRjacKv vXxfSAL6x0AeNr06 B11gPKgfNXOoVVOlRLEn PRJdoXylhk0mwK9hQv5+ FE0xu3iuxn56nE85xTR+ YUTmWCX2yIakSCzl BYUdzE5oVRunUuG9TXGf SyUehX73gKLnNSqqAk1q oYkgxSghJE4oWTXhzmov v530ZhErb0lhMDTx tGHxKFfvDMW6U71mt9Q8 ZBYiRFJfOBZ8rFK6nO1l bGlnbjogbGVmdDsgdmVy nAkvTIyuPSefS950 IHRvcDsnPlBhdGllbnQg ZvHdWTz6K4LkGyj9YXFo kYonRC5xtEEyJAfxPw8x cQlpoWiwIT2mGSCo ivaxb106AtKgq3svGCYz oMNzXTwyOHY0H36eo7O3 QVWmCLVoLGB8jMY3xZ6o bGlnbjogbGVmdDsg pnGzpNlzUHliIYilN061 IHRvcDsnPkJpcnRoIERh hLP4EJ30XD68pMGjk9R3 oRA0K7QoUHSrdzuk vweovLF8PCUpYSRasS55 Oi4zgQvxTy2gWUJkKDW7 YDVqdEIyF3EuiI8aLvBj VMFiPDHnM3GlhBXi JAvrR404HMxrQkG6QMFo paOnD0HwFEOjcEenKuX1 f5K5Ks2HP0I4LH87DQ61 dPXpz6A7jXR5E3La RPPfbxizterscCO1LEFg OAHkzC72Eb5zjRvuXk1x QATzXMH0ISXpzWLgL3Gq aF3yZwDlBEPhRVDl E4OrbSOcCJipO318KKtb VnP2YBEuydCmG8DuHLBd qHqfAmW4k1C3Qg5GHPy1 QV23PI46kWWgl8U9 cTL6G9RfDACsrnyilbfd yQX1RBWbEFWroU55Lc0p gOhzLx2cYVTdSII5IYXa uXWrK1BgsE0iBoQk QZZqSZTiQ7LzoURyQZaq M409HZmhGhP7SHSzmnEc K9SiJKNsyIexZaG2b1F8 Ge0HDPPrCL95XPR8 gLL9DM77SO73Z2CfZbhw dGFibGU+PHRhYmxlIHdp ZHRoPScxMDAlJyBzdHls IP1vHi8aDVFnYQJr pRzkrUHsScOrx2rfUQBa KCjlZZ9tyXmuS1ZbeCT6 BCExo9a9Eh74B23gB7Vf dXA+TMUryAM0kYN0 aJ6fOkBiGwX2TNouC888 HvRcgKRdAvlwo6ywy8vp pPg8LoZ7LOVfmvPudYhf FYF3d4UxJf87Y96f IHdpZHRoPSIxNSUiIHZh xVzgpm8abP9zXn9+PGNv vGM8bIF8hF4mJyKbYbU5 IYtnE191ChKfsZFn Cdwie1bzi8qjaDo3SjAo YATujnIhoWrvZCA7z6Uy Nt98K9WswGlvg2DbWwv9 bq52jZIha1B6gIX3 W9OySITicynqzMCmhCng YG1dRSJjkshoLYEamF6f TWTlU0g4RrNjTlE3GSoy L6WbegT2RCWvnPTk HJyyUVO4G79ax3G5QGLb DXLrWEH7iDQ4eQ6viAyi bjogbGVmdDsgdmVydGlj PIrgNTafF186ROCh bWyjAZOzcI4bKWJevKBz lPqaIT5rOUVemlnoDrcS QkVSTElORywgTEFXUkVO B3RzYVtzeNX+PHRk QQF5nRcmVUwcLHYduE8g QSLnH3r1LvAzZiC1BDgf N3YhZVXqdonoFt95nO2p YqTtGhS6GOrlX8Nj uwV1HTGpxBNsXOicKYQ1 C14nr5E4ABOzZUTrQOL1 wHS3hI1vkThxshwxaRHg dDsgdmVydGljYWwt ZJjeM478XOBjwKzaSeH5 XoLjHhS6XGz8K0FzTct9 LYFovQozQC0bnDBzZBje Lr1xgGevmDlwWD6a MFYxidvmPULycY2tKXSi dPHzeLpwIZ1oYGBzmxbp o693HdYvRSM0YVYgdMCk D3HznQ5oEnMrTMQt TXZcQ1DllHCrUOpbY449 PCcgRuP3FPSfpfKwE9Ba IVWwmQyeTkD3l7L2Hw28 MiBZZWFyczwvdGQ+ RYSmNKO9sIlwLNpcLZIf hR4mHWVwR3g7HvNkHoB8 BOtwX1NwBEOhpyhqSj02 hJ6nMjBoUeP1ULdk J1YlxmZ6YLZysRLvKOhc KYK6F12ot7Y0NIXlWLYf TJH3bMY4tR7zyIoxkchk bGVmdDsgdmVydGlj RDcpNIqpU782RBPmjAhw Vb9NWUX6P0YxZzd0IMFq mVkpLO2orNCwMBgpXn7b cDsahKfwHN1gDGZd etrkCQAajR1cHFMqhTNc mSezTY6mNIUupirpi656 HzIwJPS7DKLjoNJoF2Ed rA3jZtPeERFcHJXh G4GmyHZhSWmrI092MEjq UyJ2XSMxmxElG3WbLYJx jPmtXxF2u4J5Yl1MXVcx dGQ+NN13iq12I6Yq YbdgRth1KFZrYRI3fJT7 iU6cVEGwUXtxt0L6nMI6 C7KuzpRlfj1du5tjOLYq HCdqE13ukPJzr0Q2 KYOrfBN9ZSJkmCszVpRz rC74Vfw+OXQqzXrfb7Dx Zvhpd3dvb9loqLn3ZtJz JSIgdmFsaWduPSJ0 b4QsTq62Y76zQCfeRALu LZVkBAXzYCNikPdrcd8s xU5sUg6+XOOwiCU3bPD4 rQ8eWdSuWrS3WNtz L626EpWjpAGtFxwoa2qq b5kagFj5TkBrIVZcuqXc jAxgVMJ9c4OaQw53Z3Fy lKjaq9KlOxy7sz62 vBQhf1B8iAD5I4KmCUNw balisGUqvSaxVV4aVKAu hlwlGBXukF0bFXWuY9d0 RgXwSqR3KSejU0Il pmP2XWKqmCQaAXZheJBI eR9bkkgur1kaqpltSaKf IGBzPKw9TKg6HKVzjVwj CnBdAFJ1MpH3ESZ1 rLFwcY3aqIlrhvmepM6m Oyc+SYz8b3ixrEBgYT9m iOF2BZ19FB31fMVci6Q9 zMT0R4KzZSIasqqx efuveRB7MCYmPSUyyB53 Tz9wqNauJl4aIEXmZID0 EPKshMUlX7XaeY4zZdKi GSWmHIUaB1AwsTRh LXhdI168BKrdAyO3JKPl sxTbT8FzPQRncYxnPlT1 o6E7Eh3GAX87LC94XO48 sXZwg8P3iKU9T5Df KGGcruypykfvrGE2HUEd SBAeyS30Br5vpXxdMa3c ZVItCGG1EXLmyUKbA5Pp pH6dVcQhLYHcWGQd C3MlrESrPPuwX318WTyq GaD6RMFfmfJcE9ChWHYa zHljQaL7z6F0Xt5HNh87 VL04DZ16dKOxx7J1 dZK9N1DqQYKalrffwceh dBW0QKOrWCGhbP75By4h sAdfSk8hKIXzMYT9NDHh dPVuC1BlnQ1sRtJp JNHiKLHgX1LqlBJaMXja T581YZscUdG2ULXbnnVm A3JqGKMjrQpwIjI3v9P8 Ne4BHFfthbu9K4Ll PjwvdHI+IW46GYGzND83 lWAwmNQpl6cgiJi0SjKv RHSeLQW2jMmdEAdsa2Nh SQOjG72fjEBhl9N0 IGN (more content not included)... [facility] Consent Formson 03-04-2021 Consent Forms [id number] #[id number] [facility] Electronic Messagingon 03-04 Electronic Messaging --- --- --- --- --- --- --- --- --- From: Ej ([email or web address])Ej To: ZAINA WINTERS Sent: 03/04/21 10:12:15 AM EST Subject: Discharge Summary Ready to View A summary regarding your recent visit is available in the Documents section of your Health Record. [facility] MAGR Intraoperative Recordon 03-04-2021 MAGR Intraoperative Record MAGR Intra-Op Record Summary Primary Physician: DAVID AWAD Finalized Date/Time: 03/04/21 08:14:12 Pt. Name: ZAINA WINTERS.O.B./Sex: 1950 MALE Med Rec #: [id number] Physician: DAVID AWAD Financial #: [id number] Pt. Type: O Room/Bed: [facility] Admit/Disch: 03/02/21 05:52:00 - 03/03/21 14:09:00 Institution: [...] Role Performed Surgeon - Primary Anesthesiologist of Paint Mixer Record Time In 03/02/21 08:00:00 03/02/21 08:00:00 03/02/21 08:00:00 Time Out 03/02/21 12:09:00 03/02/21 12:09:00 03/02/21 12:09:00 Procedure Arthroplasty Knee Arthroplasty Knee Arthroplasty Knee Total(Left) Total(Left) Total(Left) Last Modified By: Jo-Ann Schwab RN, Barbara RN Long, Barbara RN 03/02/21 12:19:51 03/02/21 12:19:51 03/02/21 12:19:51 Entry 4 Entry 5 Entry 6 Case Attendee Marjorie Esteves FLASH WELDER, Sue Horner CST Role Performed Scrub Personnel Mounter Saxophones Mounter Saxophones Time In 03/02/21 08:00:00 03/02/21 08:00:00 03/02/21 [...] Modified By: Zaheer (more content not included)... [facility] Outside Recordson 03-04-2021 Outside Records [id number] [facility]-04-2021 Provider Orders [id number] [facility]pson Telemetry Strips [id number] [facility] .Auto Diff 1on 03-03-2021 Auto [place] % 10 % Normal 1-12 [facility] [place] Comment on above: Performed By: #### 1 [id number], 34394403, 9443009328, 5312796136, 9272788, 7445957764 ####[facility] (DEFAULT)[address] [place] [address] 75310 Baso Abs# 0.0 x10 Normal 0.0-0.2 [facility] [place] Comment on above: Performed By: #### 1 430670062, 49829526, 2652347824, 4104549626, 4335498, 4151241868 ####[facility] (DEFAULT)[address] [place] [address] 03537 Basophils/100 WBC (Bld) 0.0 % Low 0.2-2.0 [facility] [place] Comment on above: Performed By: #### 1 537691298, 12018119, 2273647111, 2140982737, 8555547, ####[facility] (DEFAULT)[address] [place] [address] 73493 Eos Abs# 0.0 x10 Normal 0.0-0.4 [facility] [place] Comment on above: Performed By: #### 1 083195517, 24912503, 5990251609, 1785927186, 3446705, 9395368977 ####[facility] (DEFAULT)[address] [place] [address] 74517 Eosinophils/100 WBC (Bld) 0.0 % Low 0.9-4.0 [facility] [place] Comment on above: Performed By: #### 1 393610268, 61506812, 3223360456, 6323423819, 3440255, 5179388428 ####[facility] (DEFAULT)[address] [place] [address] 62806 Lymph Abs# 1.9 x10 Normal 1.3-2.9 [facility] [place] Comment on above: Performed By: #### 1 680830937, 10393845, 2088053630, 0053030804, 5219478, 8205239081 ####[facility] (DEFAULT)[address] [place] [address] Lymphocytes/100 WBC (Bld) 10 % Low 14-48 [facility] [place] Comment on above: Performed By: #### 1 350840967, 51832711, 8714539237, 2069981825, 1154789, 5196480500 ####[facility] (DEFAULT)[address] [place] [address] [place] Abs# 1.9 x10 High 0.0-0.8 [facility] [place] Comment on above: Performed By: #### 1 256480111, 93432916, 7629645674, 9892528664, 9879246, 5933614876 ####[facility] (DEFAULT)[address] [place] [address] Neut Abs# 16.2 x10 High 1.5-9.2 [facility] [place] Comment on above: Performed By: #### 1 304631775, 47644176, 2612654216, 4597255792, 7424691, 8321963722 ####[facility] (DEFAULT)[address] [place] [address] Neutrophils/100 WBC (Bld) 81 % Normal 44-88 [facility] [place] Comment on above: Performed By: #### 1 536166547, 92701763, 5439382073, 9378703855, 9817849, 8532411502 ####[facility] (DEFAULT)[address] [place] [address] CBC w/ Auto Diffon 2 Erythrocyte distribution width (RBC) [Ratio] 13.5 % Normal 11.5-15.0 [facility] [place] Comment on above: Performed By: #### 1 830595853, 34689239, 8929072735, 9597160100, 5787574, 6977420609 ####[facility] (DEFAULT)[address] [place] [address] Hematocrit (Bld) [Volume fraction] 40.5 % Normal 34.8-51.9 [facility] [place] Comment on above: Performed By: #### 1 844737448, 48956813, 1967721921, 5366981965, 4427363, 5604321776 ####[facility] (DEFAULT)[address] [place] [address] 57797 Hemoglobin (Bld) [Mass/Vol] 12.8 g/dL Normal 11.8-17.7 [facility] [place] Comment on above: Performed By: #### 1 325036158, 91848658, 3391273585, 6715558120, 6582187, 0856008082 ####[facility] (DEFAULT)[address] [place] [address] Instr WBC 20.1 x10 Invalid Interpretation Code [facility] [place] Comment on above: Performed By: #### 1 310040398, 41341857, 3827153817, 4928496256, 0134686, 6100846063 ####[facility] (DEFAULT)[address] [place] [address] 29614 Man Diff? Auto Normal [facility] [place] Comment on above: Performed By: #### 1 516088295, 67751711, 3195794979, 9871978327, 0330660, 7434973112 ####[facility] (DEFAULT)[address] [place] [address] 66402 MCH (RBC) [Entitic mass] 30 pg Normal 24-34 [facility] [place] Comment on above: Performed By: #### 1 030259189, 64594483, 7241445153, 9411325846, 2516925, 3595490236 ####[facility] (DEFAULT)[address] [place] [address] 40110 MCHC (RBC) [Mass/Vol] 32 g/dL Normal 26-37 [facility] [place] Comment on above: Performed By: #### 1 167835397, 69135541, 0561689440, 4889725393, 9795105, 8943993717 ####[facility] (DEFAULT)[address] [place] [address] 99104 MCV (RBC) [Entitic vol] 96 fL Normal 81-100 [facility] [place] Comment on above: Performed By: #### 1 585186733, 67008854, 4627083289, 4904895708, 2983457, 9963112254 ####[facility] (DEFAULT)[address] [place] [address] 83845 Platelet 275 x10 Normal 138-427 [facility] [place] Comment on above: Performed By: #### 1 322719040, 05262157, 6054572980, 2154820544, 6590507, 6548690591 ####[facility] (DEFAULT)[address] [place] [address] 78050 Platelet mean volume (Bld) [Entitic vol] 10.3 fL High 6.3-10.2 [facility] [place] Comment on above: Performed By: #### 1 770942682, 13749598, 7412901575, 6749196375, 7409369, 5457848729 ####[facility] (DEFAULT)[address] [place] [address] 84624 RBC 4.24 x10 Normal 3.70-5.30 [facility] [place] Comment on above: Performed By: #### 1 282144918, 85628076, 1948443990, 0536182100, 5532710, 3792716828 ####[facility] (DEFAULT)[address] [place] [address] 68506 WBC 20.1 x10 High 3.5-10.5 [facility] [place] Comment on above: Result Comment: Slid e Reviewed Performed By: #### 1 649609117, 50503329, 4503550923, 5134281262, 3529004, 9256575882 ####[facility] (DEFAULT)[address] [place] [address] 06211 Electrolyte Panel Standardon 03-03-2021 Anion gap [Moles/Vol] 17.0 mmol/L Normal 5.0-19.0 [facility] [place] Comment on above: Performed By: #### 1 630904075, 47373558, 4017134694, 3470518251, 2108176, 1590899231 ####[facility] (DEFAULT)[address] [place] [address] 68409 Chloride [Moles/Vol] 97 mmol/L Low 101-111 [facility] Comment on above: Performed By: #### 1 365241348, 56808591, 4807893346, 3970092346, 4971464, 8431991369 ####[facility] (DEFAULT)[address] [place] [address] 28516 CO2 [Moles/Vol] 26 mmol/L Normal 21-32 [facility] [place] Comment on above: Performed By: #### 1 811516543, 42945057, 3587122596, 3133733326, 2313665, 6102458575 ####[facility] (DEFAULT)[address] [place] [address] 63274 Potassium [Moles/Vol] 3.9 mmol/L Normal 3.6-5.1 [facility] [place] Comment on above: Performed By: #### 1 966864982, 37790980, 7300449060, 7565117026, 0575373, 8639566646 ####[facility] (DEFAULT)[address] [place] [address] 22293 Sodium [Moles/Vol] 136.0 mmol/L Normal 136.0-144.0 [facility] Comment on above: Performed By: #### 1 391931981, 09900331, 0065904610, 6557163797, 6836570, 6980633587 ####[facility] (DEFAULT)[address] [place] [address] 01383 Extra Greenon 03-03-2021 Tube Collected Yes Invalid Interpretation Code [facility] [place] Comment on above: Performed By: #### 1 022741403, 45483212, 6173663295, 5642741254, 3759283, 0774552060 ####[facility] (DEFAULT)[address] [place] [address] 96864 Inpatient Patient Summaryon 03-03-2021 Inpatient Patient Summary [address] [address] Patient Discharge Instructions Name: ZAINA WINTERS : 1950 Patient Address: [address] [place] [address] Primary Care Provider: Name: Jeannine Hurley After you are discharged if you find you have any questions, please, call [phone] ext [phone] to speak to a nurse. [...] alcohol and/or drug addiction problems; contact the [facility] 05/09 Crisis Hotline -Text 4HJST to 578896. If you received any narcotics, sedation, or [...] business decisions or sign any legal documents [facility] [place] would like to thank you for allowing us to assist you with your healthcare needs. The following includes patient education materials and information regarding your injury/illness. ZAINA WINTERS has been given the following list of follow-up instructions, prescriptions, and patient education materials: Follow-up Instructions With: Address: When: Marina Redd [address] [place] [address], [address] [place] [address] Business (1) 03/15/2021 10:30 AM With: Address: When: Jeannine Evangelista [address] [place] [address] Business (1) Medications During the course of [...] 0.5 mg oral (more content not included)... [facility] Postoperative Recordon 03-03-2021 [facility] Postoperative Record [facility] Phase II Record Summary Primary Physician: DAVID AWAD Finalized Date/Time: 03/03/21 08:37:51 Pt. Name: ZAINA WINTERS./Sex: 1950 MALE Med Rec #: [id number] Physician: DAVID AWAD Financial #: [id number] Pt. Type: O Room/Bed: [facility]/ Admit/Disch: 03/02/21 05:52:00 - Institution: Phase II Case Times [facility] Pre-Care Text: Patient is free from s/s [...] General Comments: Phase II recovery done on [address] [place] [address], room 231 Finalized By: Vianca Celaya RN Document Signatures Signed By: Vianac Celaya RN 03/03/21 08:37 [facility] Nutrition Noteon 03-03-2021 Nutrition Note Pt admitted for scheduled Lt total knee surgery. Diet advanced to 3000kcal DM, along w/ usual post op vitamins/minerals and oral nutritional supplements; adjusted by real estate underwriter to 2000kcal to better meet nutritional needs without overcompensating. Labs reviewed, BS 138-177mg/dl ideal post op. Pt at high nutrition risk r/t age greater than 65y, however, no immediate nutrition concerns at this time. Will monitor for changes. [facility] Anesthesia Noteon 03-02-2021 Anesthesia Note [...] on: 03/02/2021 12:40 EST] Dre Santos DO [facility] Anesthesia Note Patient: ZAINA WINTERS [...] = 20 mL, 100 mL/hr, IV Piggyback, Drill Rig Operator tranexamic acid: 1,000 mg = 100 mL, 300 mL/hr, IV Piggyback, Drill Rig Operator tranexamic acid: 1,000 mg = 100 mL, 300 mL/hr, IV Piggyback, Drill Rig Operator Documented Medications Documented Eliquis 5 mg oral [...] All Problems Atrial fibrillation / SNOMED CT 94845405 / Confirmed COVID-19 / SNOMED CT 3574565922 / Confirmed Diabetes / SNOMED CT 109173302 / Confirmed FH: hypertension / SNOMED CT 719791298 / Confirmed 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 Comments: 02/04/2021 10:08 Oliva Van RN surgery [...] review ECG interpretation: Normal sinus rhythm. Plan [place] [employer]#(A SA) physical status classification: [...] EST] Aiden Santos (more content not included)... Normal [facility] [place] MAGR Intraoperative Recordon 03-02-2021 MAGR Intraoperative Record MAGR Intra-Op Record Summary Primary Physician: Finalized Date/Time: 03/02/21 08:23:07 Pt. Name: ZAINA WINTERS Carmen /Sex: 1950 MALE Med Rec #: [id number] Physician: DAVID AWAD Financial #: [id number] Pt. Type: D Room/Bed: / Admit/Disch: 03/02/21 [...] Case Attendee Dre Santos Laura RN Draper, Rita RN Role Performed Anesthesiologist of Paint Mixer Paint Mixer Record Time In 03/02/21 07:33:00 03/02/21 07:33:00 [...] Device Na (more content not included)... [facility]U Record [facility] PACU Record Summary Primary Physician: DAVID AWAD Finalized Date/Time: 03/02/21 13:11:26 Pt. Name: JHONZAINA MCKEON./Sex: 1950 MALE Med Rec #: [id number] Physician: DAVID AWAD Financial #: [id number] Pt. Type: D Room/Bed: 231/1 Admit/Disch: 03/02/21 [...] Signed By: Rosy Gaxiola RN 03/02/21 13:11 [facility] MAGR Preoperative Recordon 0 03-02-2021 MAGR Preoperative Record MAGR Pre-Op Record Summary Primary Physician: DAVID AWAD Finalized Date/Time: 03/02/21 08:24:03 Pt. Name: JHONZAINA MCKEON./Sex: 1950 MALE Med Rec #: [id number] Physician: DAVID AWAD Financial #: [id number] Pt. Type: D Room/Bed: / Admit/Disch: 03/02/21 [...] By: Rita Molina RN 03/02/21 08:24 Normal [facility] [place] POCT Glucose Levelon 022 Glucose [Mass/Vol] 177 mg/dL High 74-118 [facility] Comment on above: Performed By: #### 4 [id number] #### [facility] (DEFAULT) [address] [place] [address]134 Glucose [Mass/Vol] 138 mg/dL [address] Comment on above: Performed By: #### 4 [id number] ####[facility] (DEFAULT)[address] [place] [address] 27872 Patient Handouton 03-02-2021 Patient Handout POST OPERATIVE [...] the nearest hospital's emergency services department. Normal [facility] [place] XR Knee One or Two Views Lef [...] MD 03/02/21 1:56 pm Technologist: Evelia ESCOBAR [facility] 2019 Novel Coronavirus (CoVI D-19), JULISSA LCon 03-01-2021 SARS-CoV-2 (COVID-19) RNA JULISSA+probe Ql (Unsp spec) Not detected Invalid Interpretation Code Not Detected [facility] [place] Comment on above: Order Comment: [id number] Result Comment: This nucleic acid amplification test was developed and its performance characteristics determined by [employer]. Nucleic acid amplification tests include RT- PCR [...] detected) result in this assay. Performed At: [address] [id number] Zay Landa PhD Ph:[phone] Performed By: #### 1 [id number], [id number], 3480322 #### [facility] (DEFAULT) [address] [place] [address] Progress Note - Nurseon 02-13 Progress Note - Nurse Pre-op call for 03-02-2021 surgery made- patient informed of arrival time of 0600 tomorrow ,NPO after midnight except for any medication that he was instructed to take in morning, hibiclens shower x2-patient with understanding. [Electronically Signed on: 03/01/2021 09:42 EST] Rita Molina RN [Verified on: 03/01/2021 09:42 EST] Rita Molina RN [facility] Progress Note - Nurseon 01-14 Progress Note - Nurse PAT review done per Dr. Mccauley, no orders received. [Electronically Signed on: 02/08/2021 10:37 EST] Oliva Rabago RN [Verified on: 02/08/2021 10:37 EST] Oliva Rabago RN Normal [facility] [place] .Auto Diff 02-04-2021 Auto [place] % 10 % Normal -12 [facility] [place] Comment on above: Performed By: #### 1 [id number], 98558964, 0524211 ####[facility] (DEFAULT)[address] [place] [address] 78549 Baso Abs# 0.0 x10 Normal 0.0-0.2 [facility] [place] Comment on above: Performed By: #### 1 577429223, 16450732, 2751908 ####[facility] (DEFAULT)[address] [place] [address] Basophils/100 WBC (Bld) 0.3 % Normal 0.2-2.0 [facility] [place] Comment on above: Performed By: #### 1 612740200, 17191204, 0610336 ####[facility] (DEFAULT)[address] [place] [address] Eos Abs# 0.1 x10 Normal 0.0-0.4 [facility] [place] Comment on above: Performed By: #### 1 958377280, 99276797, 9134975 ####[facility] (DEFAULT)[address] [place] [address] 12492 Eosinophils/100 WBC (Bld) 1.1 % Normal 0.9-4.0 [facility] [place] Comment on above: Performed By: #### 1 326266376, 48869876, 1150743 ####[facility] (DEFAULT)[address] [place] [address] 07735 Lymph Abs# 2.0 x10 Normal 1.3-2.9 [facility] [place] Comment on above: Performed By: #### 1 683496890, 78199202, 7810304 ####[facility] (DEFAULT)[address] [place] [address] 05041 Lymphocytes/100 WBC (Bld) 27 % Normal 14-48 [facility] [place] Comment on above: Performed By: #### 1 943036042, 73250764, 7556698 ####[facility] (DEFAULT)[address] [place] [address] [place] Abs# 0.7 x10 Normal 0.0-0.8 [facility] [place] Comment on above: Performed By: #### 1 650569288, 59909850, 7284826 ####[facility] (DEFAULT)[address] [place] [address] Neut Abs# 4.5 x10 Normal 1.5-9.2 [facility] [place] Comment on above: Performed By: #### 1 849140087, 00649311, 6295231 ####[facility] (DEFAULT)[address] [place] [address] Neutrophils/100 WBC (Bld) 62 % Normal 44-88 [facility] [place] Comment on above: Performed By: #### 1 746246380, 10340232, 0833866 ####[facility] (DEFAULT)[address] [place] [address] Standardon 02-04-2021 eGFR Non AA >60 Invalid Interpretation Code [facility] [place] Comment on above: Performed By: #### 1 800923327, 64847143, 7292491 ####[facility] (DEFAULT)[address] [place] [address] eGFR AA >60 Invalid Interpretation Code [facility] [place] Comment on above: Result Comment: General Manager Land Department korian Kidney disease could be indicated at eGFRs of less than 60 ml/min/1.73m2. Kidney Failure is indicated at less than 15 ml/min/1.73m2 Performed By: #### 1 306383086, 95476016, 5711367 ####[facility] (DEFAULT)[address] [place] [address] 86457 Anion gap [Moles/Vol] 14.0 mmol/L Normal 5.0-19.0 [facility] [place] Comment on above: Performed By: #### 1 064406436, 08404036, 3403573 ####[facility] (DEFAULT)[address] [place] [address] 95551 Calcium [Mass/Vol] 9.5 mg/dL Normal 8.9-10.3 [facility] Comment on above: Performed By: #### 1 089046564, 47067829, 0990718 ####[facility] (DEFAULT)[address] [place] [address] 12284 Chloride [Moles/Vol] 99 mmol/L Low 101-111 [facility] Comment on above: Performed By: #### 1 049852834, 34394322, 2068911 ####[facility] (DEFAULT)[address] [place] [address] 53516 CO2 [Moles/Vol] 28 mmol/L Normal 21-32 [facility] [place] Comment on above: Performed By: #### 1 262988199, 15807081, 0828600 ####[facility] (DEFAULT)[address] [place] [address] 67405 Creatinine [Mass/Vol] 0.89 mg/dL Low 0.90-1.30 [facility] [place] Comment on above: Performed By: #### 1 005636174, 64136693, 4389634 ####[facility] (DEFAULT)[address] [place] [address] 18501 Glucose [Mass/Vol] 135.0 mg/dL High 74.0-118.0 [facility] Comment on above: Performed By: #### 1 354482737, 79956819, 9894891 ####[facility] (DEFAULT)[address] [place] [address] 26630 Osmolality 278 mOsm/L Invalid Interpretation Code [facility] [place] Comment on above: Performed By: #### 1 868916799, 47947805, 1033322 ####[facility] (DEFAULT)[address] [place] [address] 58033 Potassium [Moles/Vol] 4.1 mmol/L Normal 3.6-5.1 [facility] [place] Comment on above: Performed By: #### 1 398471383, 69041500, 4437791 ####[facility] (DEFAULT)[address] [place] [address] 78443 Sodium [Moles/Vol] 137.0 mmol/L Normal 136.0-144.0 [facility] Comment on above: Performed By: #### 1 916530099, 31195187, 1202993 ####[facility] (DEFAULT)[address] [place] [address] 35412 Urea nitrogen [Mass/Vol] 19 mg/dL Normal 8-26 [facility] [place] Comment on above: Performed By: #### 1 399559387, 75237526, 7916056 ####[facility] (DEFAULT)[address] [place] [address] 21745 Urea nitrogen/Creatinine [Mass ratio] 21.0 mg/mg High 4.6-16.2 [facility] [place] Comment on above: Performed By: #### 1 835625625, 28811385, 3165699 ####[facility] (DEFAULT)[address] [place] [address] 24912 CBC w/ Auto Diffon Erythrocyte distribution width (RBC) [Ratio] 13.4 % Normal 11.5-15.0 [facility] [place] Comment on above: Performed By: #### 1 360784009, 01243525, 5967363 ####[facility] (DEFAULT)[address] [place] [address] Hematocrit (Bld) [Volume fraction] 48.0 % Normal 34.8-51.9 [facility] [place] Comment on above: Performed By: #### 1 561185234, 68389015, 3229144 ####[facility] (DEFAULT)[address] [place] [address] 46420 Hemoglobin (Bld) [Mass/Vol] 15.5 g/dL Normal 11.8-17.7 [facility] [place] Comment on above: Performed By: #### 1 394350265, 56218725, 3504991 ####[facility] (DEFAULT)[address] [place] [address] 18869 Instr WBC 7.3 x10 Invalid Interpretation Code [facility] [place] Comment on above: Performed By: #### 1 [id number], 26372119, 0050434 ####[facility] (DEFAULT)[address] [place] [address] 76145 Man Diff? Auto Normal [facility] [place] Comment on above: Performed By: #### 1 578029648, 84070161, 1460162 ####[facility] (DEFAULT)[address] [place] [address] 91013 MCH (RBC) [Entitic mass] 30 pg Normal 24-34 [facility] [place] Comment on above: Performed By: #### 1 816212996, 85256428, 8755017 ####[facility] (DEFAULT)[address] [place] [address] 93303 MCHC (RBC) [Mass/Vol] 32 g/dL Normal 26-37 [facility] [place] Comment on above: Performed By: #### 1 146483474, 59210213, 3632108 ####[facility] (DEFAULT)[address] [place] [address] 11236 MCV (RBC) [Entitic vol] 94 fL Normal 81-100 [facility] [place] Comment on above: Performed By: #### 1 318028888, 12082590, 7001708 ####[facility] (DEFAULT)[address] [place] [address] 18573 Platelet 196 x10 Normal 138-427 [facility] [place] Comment on above: Performed By: #### 1 184341446, 95782868, 9859024 ####[facility] (DEFAULT)[address] [place] [address] 37321 Platelet mean volume (Bld) [Entitic vol] 10.3 fL High 6.3-10.2 [facility] [place] Comment on above: Performed By: #### 1 005827295, 79935929, 2173944 ####[facility] (DEFAULT)[address] [place] [address] 37678 RBC 5.13 x10 Normal 3.70-5.30 [facility] [place] Comment on above: Performed By: #### 1 547369206, 29059692, 7390713 ####[facility] (DEFAULT)[address] [place] [address] 42736 WBC 7.3 x10 Normal 3.5-10.5 [facility] [place] Comment on above: Performed By: #### 1 939146780, 06025656, 9081893 ####[facility] (DEFAULT)[address] [place] [address] 34008 UA w Culture if Ind Standard on 02-04-2021 Breakpoint UA [facility] Comment on above: Performed By: #### 1 [id number] #### [facility] (DEFAULT) [address] [place] [address] 06234 Color (U) Yellow Normal [facility] [place] Comment on above: Performed By: #### 1 [id number] #### [facility] (DEFAULT) [address] [place] [address] 99851 Culture? No [facility] Comment on above: Result Comment: Resu lt created by rule [id number] Result created by rule [id number] Performed By: #### 1 [id number] #### [facility] (DEFAULT) [address] [place] [address] [id number] Glucose (U) [Mass/Vol] Negative [facility] Comment on above: Performed By: #### 1 [id number] #### [facility] (DEFAULT) [address] [place] [address] 70159 Ketones Ql (U) Negative [facility] Comment on above: Performed By: #### 1 [id number] #### [facility] (DEFAULT) [address] [place] [address] [phone] Micro? Not Indicated [facility] Comment on above: Result Comment: Resu lt created by rule GL_MAGR_ADD_UA_MICRO Performed By: #### 1 [id number] #### [facility] (DEFAULT) [address] [place] [address] 18833 UA Bilirubin Negative Normal [facility] Comment on above: Performed By: #### 1 [id number] #### [facility] (DEFAULT) [address] [place] [address] 33153 UA Blood Negative Normal NEGATIVE [facility] Comment on above: Performed By: #### 1 [id number] #### [facility] (DEFAULT) [address] [place] [address] 01506 UA Clarity CLEAR Normal CLEAR [facility] Comment on above: Performed By: #### 1 [id number] #### [facility] (DEFAULT) [address] [place] [address] 57143 UA Leuk Est Negative Normal NEGATIVE [facility] Comment on above: Performed By: #### 1 [id number] #### [facility] (DEFAULT) [address] [place] [address] 49526 UA Nitrite Negative Normal NEGATIVE [facility] Comment on above: Performed By: #### 1 [id number] #### [facility] (DEFAULT) [address] [place] [address] 56681 UA pH 6.0 Normal 5-8 [facility] Comment on above: Performed By: #### 1 [id number] #### [facility] (DEFAULT) [address] [place] [address] UA Protein Negative Normal NEGATIVE [facility] Comment on above: Performed By: #### 1 [id number] #### [facility] (DEFAULT) [address] [place] [address] UA Spec Grav >=1.030 Normal 1.001-1.035 [facility] Comment on above: Performed By: #### 1 [id number] #### [facility] (DEFAULT) [address] [place] [address] UA Urobilinogen 0.2 mg/dL Normal 0.2-1.0 [facility] Comment on above: Performed By: #### 1 [id number] #### [facility] (DEFAULT) [address] [place] [address] Urine Source Clean Catch Normal [facility] Comment on above: Performed By: #### 1 [id number] #### [facility] (DEFAULT) [address] [place] [address] XR [facility] XR Bone Length Studies Scanograms [...] John Mckenna MD 02/08/21 7:27 am Technologist[facility] Echo 2D w doppler w color co mpleteOrdered By: Ej Foster on 09-23-2020 [facility] Transthoracic Echocardiography Report (TTE) Patient Name SINGH Date of Study 09/23/2020 ZAINA Carmen Date of 1950 Gender Male Age 69 year(s) Race Room Number Height: 72 inch, 182.88 cm Corporate ID [id number] Weight: 288 pounds, 130.6 kg # Patient Acct [id number] BSA: 2.49 m^2 BMI: 39.06 # kg/m^2 MR # [id number] St[employer] Mounter Debi Lopez Interpreting Physician Ej Foster Fellow Referring Nurse Practitioner Interpreting Referring Physician Ej Foster Fellow Type of Study TTE procedure:2D Echocardiogram, M-Mode, Doppler, Color Doppler. Procedure Date Date: 09/23/2020 Start: 11:32 AM Study Location: [facility] Indications:Atrial fibrillation. History / Tech. Comments: [...] TR Velocity: 2.17 m/s Peak TR Gradient: 18.04631 mmHg Estimated RA Pressure: 3 mmHg Estimated PASP: 21.79 mmHg Diastology / Tissue Doppler Lateral Wall E' velocity:0.07 m/s Lateral Wall E/E':7.23 [facility] Work Phone: Shankar, [facility] Incoming Cardio Results From [facility]/Ge - 09/23/2020 5:27 PM EDT [facility] Transthoracic Echocardiography Report (TTE) Patient Name HEBERASHTYN Date of Study 09/23/2020 ZAINA Morales Date of 1950 Gender Male Age 69 year(s) Race Room Number Height: 72 inch, 182.88 cm Corporate ID [id number] Weight: 288 pounds, 130.6 kg # Patient Acct [id number] BSA: 2.49 m^2 BMI: 39.06 # kg/m^2 MR # [id number] [employer] M[employer] Debi Lopez Interpreting Physician Ej Foster Fellow Referring Nurse Practitioner Interpreting Referring Physician Ej Foster Type of Study TTE procedure:2D Echocardiogram, M-Mode, Doppler, Color Doppler. Procedure Date Date: 09/23/2020 Start: 11:32 AM Study Location: [facility] Indications:Atrial fibrillation. History / Tech. Comments: [...] - - - Electronically signed by [facility]) on 09/23/2020 05:26 PM - FINDINGS [...] TR Velocity: 2.17 m/s Peak TR Gradient: 18.99438 mmHg Estimated RA Pressure: 3 mmHg Estimated PASP: 21.79 mmHg Diastology / Tissue Doppler Lateral Wall E' velocity:0.07 m/s Lateral Wall E/E':7.23 [facility] [employer] Phone: [facility] [address] [employer] Phone: Basic Metabolic Panel 02-14 Anion gap [Moles/Vol] 10 mmol/L 9 - 17 mmol/L [place] Bun/Cre Ratio 21 High [place], [place] Calcium [Mass/Vol] 9.7 mg/dL 8.6 - 10. 4 mg/dL [place] Chloride [Moles/Vol] 101 mmol/L 98 - 10 7 mmol/L [place] CO2 [Moles/Vol] 28 mmol/L 20 - 31 mmol/L [place] Creatinine [Mass/Vol] 0.89 mg/dL 0.7 - 1.2 mg/dL [place] GFR >60 >60 mL/min [place] GFR Non- >60 >60 mL/min [place] Glucose [Mass/Vol] 101 mg/dL High 70 - 99 mg/dL [place], [place] Interpretation and review of laboratory results Abnormal [place] Potassium [Moles/Vol] 4.3 mmol/L 3.7 - 5.3 mmol/L [place] Sodium [Moles/Vol] 139 mmol/L 135 - 144 mmol/L [place] Urea nitrogen [Mass/Vol] 19 mg/dL 8 - 23 mg/dL [place] Lipid Panelon 03-10-2020 Cholesterol [Mass/Vol] 162 mg/dL <200 [place] Comment on above: Cholesterol Guidelines: <200 Desirable 200-240 Borderline >240 Undesirable Cholesterol in HDL [Mass/Vol] 41 mg/dL >40 [place] Comment on above: HDL Guidelines: <40 Undesirable 40-59 Borderline >59 Desirable Cholesterol in LDL [Mass/Vol] 102 mg/dL 0 - 130 mg/dL [place] Comment on above: LDL Guidelines: <100 Desirable 100-129 Near to/above Desirable 130-159 Borderline >159 Undesirable Direct (measured) LDL and calculated LDL are not interchangeable tests. Cholesterol in VLDL [Mass/Vol] NOT REPORTED 1 - 30 mg/dL [place] Cholesterol.total/Ch olesterol in HDL [Mass ratio] 4 {ratio} <5 [place] Triglyceride [Mass/Vol] 97 mg/dL <150 [place] Comment on above: Triglyceride Guidelines: <150 Desirable 150-199 Borderline 200-499 High >499 Very high Based on AHA Guidelines for fasting triglyceride, November 2011. Metabolic Panelon 03-10-2020 GFR/1.73 sq M predicted among non-blacks MDRD (S/P/Bld) [Vol rate/Area] [place] Comment on above: Stage 1: Some [...] body mass. Additional eGFR calculator available at: http://www.[employer]/multiple_crcl_2012.htm Basic Metabolic Panelon 12-0 Anion gap [Moles/Vol] 9 mmol/L 9 - 17 mmol/L [place] Bun/Cre Ratio 16 [place] Calcium [Mass/Vol] 9.6 mg/dL 8.6 - 10. 4 mg/dL [place] Chloride [Moles/Vol] 101 mmol/L 98 - 10 7 mmol/L [place] CO2 [Moles/Vol] 29 mmol/L 20 - 31 mmol/L [place] Creatinine [Mass/Vol] 0.76 mg/dL 0.7 - 1.2 mg/dL [place] GFR >60 >60 mL/min [place] GFR Non- >60 >60 mL/min [place] Glucose [Mass/Vol] 118 mg/dL High 70 - 99 mg/dL [place] Interpretation and review of laboratory results Abnormal [place] Potassium [Moles/Vol] 4.7 mmol/L 3.7 - 5.3 mmol/L [place] Sodium [Moles/Vol] 139 mmol/L 135 - 144 mmol/L [place] Urea nitrogen [Mass/Vol] 12 mg/dL 8 - 23 mg/dL [place] CBCon 01-22-2020 Erythrocyte distribution width (RBC) [Ratio] 14.2 % 11.8 - 14.4 % [place] Hematocrit (Bld) [Volume fraction] 43.4 % 40.7 - 50.3 % [place] Hemoglobin (Bld) [Mass/Vol] 13.4 g/dL 13 - 17 g/dL [place] MCH (RBC) [Entitic mass] 28.9 pg 25.2 - 33.5 pg [place] MCHC (RBC) [Mass/Vol] 30.9 g/dL 28.4 - 34.8 g/dL [place] MCV (RBC) [Entitic vol] 93.7 fL 82.6 - 102.9 fL [place] Platelet mean volume (Bld) [Entitic vol] 9.9 fL 8.1 - 13.5 fL [place] Platelets (Bld) [#/Vol] 217 10*3/uL [place] RBC (Bld) [#/Vol] 4.63 10*6/uL 4.21 - 5.7 7 m/uL [place] WBC (Bld) [#/Vol] 0.0 10*3/uL 0.0 per 10 0 WBC [place] WBC (Bld) [#/Vol] 5.7 10*3/uL [place] ECHO Complete 2D W Doppler W Coloron 01-22-2020 [facility] Transthoracic Echocardiography Report (TTE) Patient Name SINGH Date of Study 01/22/2020 ZAINA Morales Date of 1950 Gender Male Age 69 year(s) Race Room Number Height: 73 inch, 185.42 cm Corporate ID [id number] Weight: 273 pounds, 123.8 kg # Patient Acct [id number] BSA: 2.46 m^2 BMI: 36.02 # kg/m^2 MR # [id number] Stem Mounter Work,Nini Interpreting Physician Ej Foster Fellow Referring Nurse Practitioner Interpreting Referring Physician Ej Foster Type of Study TTE procedure:2D Echocardiogram, M-Mode, Doppler, Color Doppler. Procedure Date Date: 01/22/2020 Start: 09:22 AM Study Location: [facility] Indications:Atrial fibrillation, Dyspnea/SOB and History of [...] Wall E' velocity:0.11 m/s Lateral Wall E/E':6.91 [facility]- [place], [place] Shankar, [facility] Incoming Cardio Results From [facility]/ - 01/22/2020 5:08 PM EST [facility] Transthoracic Echocardiography Report (TTE) Patient Name SINGH Date of Study 01/22/2020 ZAINA Morales Date of 1950 Gender Male Age 69 year(s) Race Room Number Height: 73 inch, 185.42 cm Corporate ID [id number] Weight: 273 pounds, 123.8 kg # Patient Acct [id number] BSA: 2.46 m^2 BMI: 36.02 # kg/m^2 MR # [id number] Stem Mounter Work,Nini Interpreting Physician Ej Foster Referring Nurse Practitioner Interpreting Referring Physician Ej Foster Type of Study TTE procedure:2D Echocardiogram, M-Mode, Doppler, Color Doppler. Procedure Date Date: 01/22/2020 Start: 09:22 AM Study Location: [facility] Indications:Atrial fibrillation, Dyspnea/SOB and History of [...] - - - Electronically signed by [facility] physician) on 01/22/2020 05:08 PM - FINDINGS [...] Wall E' velocity:0.11 m/s Lateral Wall E/E':6.91 [place] Hemoglobin A1Con 01-22-2020 Glucose [Mass/Vol] 123 mg/dL [place] Comment on above: The ADA and AACC rec ommend providing the estimated average glucose result to permit better patient understanding of their HBA1c result. HbA1c (Bld) [Mass fraction] 5.9 % 4 - 6 % [place] Metabolic Panelon 01-22-2020 GFR/1.73 sq M predicted among non-blacks MDRD (S/P/Bld) [Vol rate/Area] [place] Comment on above: Stage 1: Some [...] body mass. Additional eGFR calculator available at: http://www.[employer]/multiple_crcl_2012.htm Troponin Ion 01-22-2020 Troponin I.cardiac [Mass/Vol] NOT REPORTED [place] Troponin T.cardiac [Mass/Vol] NOT REPORTED <0.03 ng/mL [place] Troponin, High Sensitivity 15 ng/L 0 - 22 ng/L [facility] [place], [place] Comment on above: High Sensitivity Troponin values cannot be compared with other Troponin methodologies. Patients with high levels of Biotin oral intake (i.e >5mg/day) may have falsely decreased Troponin levels. Samples collected within 8 hours of biotin intake may require additional information for diagnosis. BNPon 12-16-2019 Natriuretic peptide B (Bld) [Mass/Vol] 595.0 pg/mL Normal <=900.0 [facility] Comment on above: Performed By: #### T ROP, BNP, CMP, CRP #### [facility] [address] [place], [place] [id number] Cheryl Zarina CBC AUTO DIFFon 12-16-2019 Basophils (Bld) [#/Vol] 0.0 103/ul Normal 0.0-0.1 [facility] Comment on above: Performed By: #### C BC #### [facility] [address] [place] [address] Cheryl Zarina Basophils/100 WBC (Bld) 0.1 % Critically low 0.2-2.0 [facility] Comment on above: Performed By: #### C BC #### [facility] [address] [place] [address] Cheryl Zarina Eosinophils (Bld) [#/Vol] 0.0 103/ul Normal 0.0-0.7 [facility] Comment on above: Performed By: #### C BC #### [facility] [address] [place], [place] [id number] Cheryl Zarina Eosinophils/100 WBC (Bld) 0.0 % Critically low 0.9-7.0 [facility] Comment on above: Performed By: #### C BC #### [facility] [address] [place], [place] [id number] Cheryl Zarina Erythrocyte distribution width (RBC) [Ratio] 12.9 % Normal 11.0-15.0 [facility] Comment on above: Performed By: #### C BC #### [facility] [address] [place] [address] Cheryl Zarina Hematocrit (Bld) [Volume fraction] 45.2 % Normal 42.0-54.0 [facility] Comment on above: Performed By: #### C BC #### [facility] [address] [id number] Cheryl Zarina Hemoglobin (Bld) [Mass/Vol] 15.1 g/dL Normal 14.0-18.0 [facility] Comment on above: Performed By: #### C BC #### [facility] [address] [id number] Cheryl Zarina IG # 0.06 10e3/ul Critically high 0.00-0.03 [facility] Comment on above: Performed By: #### C BC #### [facility] [address] [place] [address] Cheryl Zarina IG % 0.6 % Critically high 0.0-0.[address] [facility] Comment on above: Performed By: #### C BC #### [facility] [address] [place] [address] Cheryl Zarina Lymphocytes (Bld) [#/Vol] 1.0 103/ul Critically low 1.2-3.8 [facility] Comment on above: Performed By: #### C BC #### [facility] [address] [place] [address] Cheryl Zarina Lymphocytes/100 WBC (Bld) 10.1 % Critically low 20.5-60.0 [facility] Comment on above: Performed By: #### C BC #### [facility] [address] [place], [place] [id number] Cheryl Zarina MANUAL DIFF REQ NO Normal [facility] Comment on above: Performed By: #### C BC #### [facility] [address] [place], [place] [id number] Cheryl Zarina MCH (RBC) [Entitic mass] 30.0 pg Normal 25.9-34.0 [facility] Comment on above: Performed By: #### C BC #### [facility] [address] [place], [place] [id number] Cheryl Zarina MCHC (RBC) [Mass/Vol] 33.4 g/dL Normal 29.9-35.2 [facility] Comment on above: Performed By: #### C BC #### [facility] [address] [place], [place] [address] Cheryl Zarina MCV (RBC) [Entitic vol] 89.7 fL Normal 80.0-94.0 [facility] Comment on above: Performed By: #### C BC #### [facility] [address] [place], [place] [address] Cheryl Zarina Monocytes (Bld) [#/Vol] 0.3 103/ul Normal 0.3-0.8 [facility] Comment on above: Performed By: #### C BC #### [facility] [address] [place] [address] Cheryl Zarina Monocytes/100 WBC (Bld) 3.4 % Normal 1.7-12.0 [facility] Comment on above: Performed By: #### C BC #### [facility] [address] [place] [address] Cheryl Zarina Neutrophils (Bld) [#/Vol] 8.3 103/ul Critically high 1.4-6.5 [facility] Comment on above: Performed By: #### C BC #### [facility] [address] [place] [address] Cheryl Zarina Neutrophils/100 WBC (Bld) 85.8 % Critically high 43.0-75.0 [facility] Comment on above: Performed By: #### C BC #### [facility] [address] [place] [address] Cheryl Zarina Platelet mean volume (Bld) [Entitic vol] 9.7 fL Normal 9.5-13.5 [facility] Comment on above: Performed By: #### C BC #### [facility] [address] [place] [address] Cheryl Zarina Platelets (Bld) [#/Vol] 270 103/ul Normal 150-450 [facility] Comment on above: Performed By: #### C BC #### [facility] [address] [place] [address] Cheryl Zarina RBC (Bld) [#/Vol] 5.04 106/ul Normal 4.70-6.10 [facility] Comment on above: Performed By: #### C BC #### [facility] [address] [place], [place] [address] Cheryl Srinivasan WBC (Bld) [#/Vol] 9.7 103/ul Normal 4.0-11.0 [facility] Comment on above: Performed By: #### C BC #### [facility] [address] [place], [place] [address] Cheryl Srinivasan CRPon 12-16-2019 CRP [Mass/Vol] 12.3 mg/dL Critically high <=1.0 [facility] Comment on above: Performed By: #### C BC #### [facility] [address] [place], [place] [address] Cheryl Srinivasan CTA CHEST WO W CONon [...] RUPESH ULRICH Date: 2019-12-16 05:43 Normal [facility] D-DIMERon 12-16-2019 D-DIMER COMMENTS SEE BELOW Normal [facility] Comment on above: Result Comment: Incr [...] By: #### D DIM, PT, PTT #### [facility] [address] [place], [place] [id number] Cheryl Srinivasan Fibrin D-dimer FEU IA (Bld) [Mass/Vol] 0.84 ug/mL Critically high 0.19-0.50 [facility] Comment on above: Result Comment: test repeated critcal value verified Performed By: #### D DIM, PT, PTT #### [facility] [address] [place], [place] [id number] Cheryl Srinivasan LACTATE/LACTIC ACIDon 2019 Lactate [Moles/Vol] 1.8 mmol/L Normal 0.7-2.0 [facility] Comment on above: Performed By: #### L ACT #### [facility] [address] [place] [address] Cheryl Srinivasan PROF 14(COMP METB)on 020 Albumin [Mass/Vol] 3.2 g/dL Critically low 3.5-5.0 [facility] Comment on above: Performed By: #### T ROP, BNP, CMP, CRP #### [facility] [address] [place] [address] Cheryl Srinivasan Albumin/Globulin [Mass ratio] 0.8 {ratio} Normal [facility] Comment on above: Performed By: #### T ROP, BNP, CMP, CRP #### [facility] [address] [place] [address] Cheryl Zarina ALP [Catalytic activity/Vol] 85 U/L Normal 38-126 [facility] Comment on above: Performed By: #### T ROP, BNP, CMP, CRP #### [facility] [address] [place] [address] Cheryl Zarina ALT [Catalytic activity/Vol] 63 U/L Normal 21-72 [facility] Comment on above: Performed By: #### T ROP, BNP, CMP, CRP #### [facility] [address] [id number] Cheryl Zarina Anion gap [Moles/Vol] 14.2 mmol/L Normal [facility] Comment on above: Performed By: #### T ROP, BNP, CMP, CRP #### [facility] [address] [place] [address] Cheryl Zarina AST [Catalytic activity/Vol] 53 U/L Normal 17-59 [facility] Comment on above: Performed By: #### T ROP, BNP, CMP, CRP #### [facility] [address] [address] Cheryl Zarina Bilirubin Ql (U) 1.0 mg/dL Normal 0.2-1.[address] [facility] Comment on above: Performed By: #### T ROP, BNP, CMP, CRP #### [facility] [address] [address] Cheryl Zarina Calcium [Mass/Vol] 9.0 mg/dL Normal 8.4-10.2 [facility] Comment on above: Performed By: #### T ROP, BNP, CMP, CRP #### [facility] [address] [id number] Cheryl Zarina Chloride [Moles/Vol] 96 mmol/L Critically low 98-107 [facility] Comment on above: Performed By: #### T ROP, BNP, CMP, CRP #### [facility] [address] [address] Cheryl Zarina CO2 [Moles/Vol] 25.8 mmol/L Normal 22.0-30.[address] [facility] Comment on above: Performed By: #### T ROP, BNP, CMP, CRP #### [facility] [address] [id number] Cheryl Zarina Creatinine [Mass/Vol] 0.90 mg/dL Normal 0.66-1.25 [facility] Comment on above: Performed By: #### T ROP, BNP, CMP, CRP #### [facility] [address] [id number] Cheryl Zarina EGFR-AF [place]ER >60 Normal >=60 [facility] Comment on above: Performed By: #### T ROP, BNP, CMP, CRP #### [facility] [address] [address] Cheryl Zarina EGFR-NON AF [place] >60 Normal >=60 [facility] Comment on above: Performed By: #### T ROP, BNP, CMP, CRP #### [facility] [address] [place] [address] Cheryl Zarina Globulin (S) [Mass/Vol] 4.1 g/dL Normal [facility] Comment on above: Performed By: #### T ROP, BNP, CMP, CRP #### [facility] [address] [place] [address] Cheryl Zarina Glucose [Mass/Vol] 146 mg/dL Critically high 74-106 [facility] Comment on above: Performed By: #### T ROP, BNP, CMP, CRP #### [facility] [address] [place] [address] Cheryl Zarina Potassium [Moles/Vol] 4.0 mmol/L Normal 3.4-5.0 [facility] Comment on above: Performed By: #### T ROP, BNP, CMP, CRP #### [facility] [address] [place] [address] Cheryl Zarina Protein [Mass/Vol] 7.3 g/dL Normal 6.1-8.2 [facility] Comment on above: Performed By: #### T ROP, BNP, CMP, CRP #### [facility] [address] [place] [address] Cheryl Zarina Sodium [Moles/Vol] 132 mmol/L Critically low 137-145 [facility] Comment on above: Performed By: #### T ROP, BNP, CMP, CRP #### [facility] [address] [place] [address] Cheryl Zarina Urea nitrogen [Mass/Vol] 18.0 mg/dL Normal 9.0-20.0 [facility] Comment on above: Performed By: #### T ROP, BNP, CMP, CRP #### [facility] [address] [place] [address] Cheryl Zarina Urea nitrogen/Creatinine [Mass ratio] 20.0 mg/mg Normal [facility] Comment on above: Performed By: #### T ROP, BNP, CMP, CRP #### [facility] [facility] [address] [place] [address] Cheryl Zarina PROTIMEon 12-16-2019 INR Coag (PPP) [Relative time] 0.97 {INR} Normal [facility] Comment on above: Performed By: #### D DIM, PT, PTT #### [facility] [address] [place] [address] Cheryl Zarina PT Coag (PPP) [Time] PLEASE NOTE: NORMAL RANGE CHANGE 10-31-2013 DUE TO REAGENT LOT CHANGE Normal [facility] Comment on above: Performed By: #### D DIM, PT, PTT #### [facility] [address] [place] [address] Cheryl Zarina PT Coag (PPP) [Time] 10.3 s Normal 9.0-11.6 [facility] Comment on above: Performed By: #### D DIM, PT, PTT #### [facility] [address] [place] [address] Cheryl Zarina PT Coag (PPP) [Time] SEE BELOW Normal [facility] Comment on above: Result Comment: CHEMO RED INR: 2.0 - 3.0 CONDITIONS NOT LISTED BELOW 2.5 - 3.5 FOR PROSTHETIC HEART VALVE REPLACEMENT 2.5 - 3.5 RECURRENT THROMBOSIS Performed By: #### D DIM, PT, PTT #### [facility] [address] [place] [address] Cheryl Zarina PTTon 12-16-2019 aPTT Coag (Bld) [Time] PLEASE NOTE: NORMAL RANGE CHANGE 01-07-2015 DUE TO REAGENT LOT CHANGE Normal [facility] Comment on above: Performed By: #### D DIM, PT, PTT #### [facility] [address] [place] [address] Cheryl Zarina aPTT Coag (Bld) [Time] 26.0 s Normal 22.3-36.2 [facility] Comment on above: Performed By: #### D DIM, PT, PTT #### [facility] [address] [place] [address] Cheryl Srinivasan Rapid Covid-19 PCRon 020 Zite LDT Info SEE BELOW Normal [facility] Comment on above: Result Comment: This test is not yet approved or cleared by the [place] Food and Drug Administration (FDA) . This test was developed by [employer], [place]. The performance characteristics of this test were validated by The [facility]. The results are not intended to be used as the sole means for clinical diagnosis or patient management decisions. The [facility] is authorized under Clinical Laboratory Improvement Amendments (CLIA) to perform high-complexity testing. When diagnostic testing is negative, the possibility of a false negative should be considered in the context of a patients recent exposures and the presence of clinical signs and symptoms consistent with SARS-CoV-2. Performed By: #### C VDRPD #### [facility] [address] [place] [address] Cheryl Srinivasan SARS-CoV-2 DETECTED NOT DETECTED [facility] Comment on above: Result Comment: . Performed By: #### C VDRPD #### [facility] [address] [place] [address] Cheryl Srinivasan TROPONIN - Ion 12-16-2019 Troponin I.cardiac [Mass/Vol] ng/mL Normal <=0.034 [facility] Comment on above: Performed By: #### C BC #### [facility] [address] [place] [address] Cheryl Zarina Troponin I.cardiac [Mass/Vol] SEE BELOW Normal [facility] Comment on above: Result Comment: <0.0 34 ng/ml NEGATIVE 0.034-0.119 INDETERMINATE 0.120 AMI CUT OFF Performed By: #### C BC #### [facility] [address] [place] [address] Cheryl Srinivasan Vital Signs Date Time Vital Sign Value Performing Clinician Ekta bland 02-12-2020 09:31-0500 Pulse Oximetry 98 % [facility] , [place] 02-12-2020 09:30-0500 BP Diastolic 73 mm[Hg] Ej [facility] , [place] 02-12-2020 09:30-0500 BP Systolic 135 mm[Hg] Ej Foster [facility] , [place] 02-12-2020 09:30-0500 Pulse (Heart Rate) 56 /min [facility] [place] 02-12-2020 09:30-0500 Respiratory Rate 22 /min Ej [facility], [place] 02-12-2020 07:14-0500 BMI (Body Mass Index) 36.89 kg/m2 Ej [facility], [place] 02-12-2020 07:14-0500 Body weight 123.38 [facility] [place] 02-12-2020 07:14-0500 Height 182.9 cm [facility] [place] Encounters Encounter Date Encounter Type Care Provider Facility Start: 10-23-2023 End: 10-23-2023 ambulatory Ever Guillen MD Facility: [facility] Start: 10-11-2023 End: 10-11-2023 ambulatory KENIA KAMPFER Not Available Start: 09-19-2023 End: 09-19-2023 ambulatory KENIA KAMPFER Not Available Start: 09-18-2023 End: 09-18-2023 ambulatory Ever Guillen MD Facility: [facility] Start: 07-24-2023 End: 07-24-2023 ambulatory Ever Guillen MD Facility: [facility] Start: 07-20-2023 End: 07-20-2023 ambulatory ARIANNA LOU Not Available Start: 07-18-2023 End: 07-18-2023 ambulatory KENIA KAMPFER Not Available Start: 06-19-2023 End: 06-19-2023 ambulatory BOBBY PINK Not Available Start: 06-14-2023 End: 06-30-2023 ambulatory DAVID AWAD JR [facility] Start: 06-09-2023 End: 06-09-2023 ambulatory KENIA KAMPFER Not Available Start: 05-24-2023 End: 05-24-2023 ambulatory DAVID HENDRICKSON Not Available Start: 05-23-2023 End: 05-23-2023 ambulatory Marina Redd Facility:[facility] Start: 05-23-2023 End: 05-23-2023 ambulatory SENIOR ACCOUNT MANAGER-C Jeannine Moseleyk Work Phone: [facility] Work Phone: Start: 05-23-2023 End: 05-23-2023 Patient encounter procedure SENIOR ACCOUNT MANAGER-C Jeannine Blanchardtrick Work Phone: [facility] [address] Work Phone: Start: 05-11-2023 End: 05-11-2023 ambulatory SENIOR ACCOUNT MANAGER-C Jeannine Blanchardtrick Work Phone: [facility] Work Phone: Start: 05-11-2023 End: 05-11-2023 Patient encounter procedure SENIOR ACCOUNT MANAGER-C Jeannine Moseleyk Work Phone: [facility] [address] Work Phone: Start: [...] be covered. He gave a reference # [id number].) Start: 03-29-2023 Telephone encounter Yuliya lantigua PT [...] so.) Start: 03-28-2023 Telephone encounter Maddie Latham SUPERVISOR GRINDING [facility] Comment on above: re: PT today (Called and noted auth is still pending for PT and in need to cx today; I informed I will keep up-to-date come his next on 03/30.) Start: 03-23-2023 [employer] practice solutionsheet Yuliya kinney PT Work Phone: [facility] Start: 03-23-2023 [employer] practice solutionsheet Yuliya Martinez ulisesrosio PT Work Phone: [facility] Start: [...] Start: 05-03-2022 End: 05-04-2022 ambulatory [facility] Start: 09-23-2020 End: 09-23-2020 Subsequent hospital visit by physician [facility] Echo Room [facility] Echocardiography Comment on above: Persistent atrial fi brillation (HCC); SOB (shortness of breath); Essential hypertension; Other specified diabetes mellitus with other specified complication, unspecified whether detention insulin use (HCC); Class 2 obesity with body mass index (BMI) of 36.0 to 36.9 in adult, unspecified obesity type, unspecified whether serious comorbidity present; Pain in both lower extremities Start: 03-10-2020 End: 03-12-2020 Subsequent hospital visit by physician [facility] Vascular Imaging Room [facility] Laboratory Comment on above: Controlled type 2 di abetes mellitus with hyperglycemia, without long-term current use of insulin (HCC); Persistent atrial fibrillation (HCC); SOB (shortness of breath); Essential hypertension; Other specified diabetes mellitus with other specified complication, unspecified whether detention insulin use ([facility]); Class 2 obesity with body mass index (BMI) of 36.0 to 36.9 in adult, unspecified obesity type, unspecified whether serious comorbidity present; COVID-19; Fluid retention; Pain in both lower extremities Pain in both lower e xtremities; PVD (peripheral vascular disease) ([facility]) Start: 02-12-2020 End: 02-12-2020 Subsequent hospital visit by physician Ej Foster Work Phone: [facility] ICU Comment on above: Arrived Start: 01-22-2020 End: 01-22-2020 Subsequent hospital visit by physician [facility] Echo Room [facility] Echocardiography Comment on above: Persistent atrial fi brillation (HCC); Essential hypertension; SOB (shortness of breath); Fluid retention; Other specified diabetes mellitus with other specified complication, unspecified whether detention insulin use ([facility]); Class 2 obesity with body mass index (BMI) of 36.0 to 36.9 in adult, unspecified obesity type, unspecified whether serious comorbidity present Start: 12-16-2019 End: 12-16-2019 Patient encounter procedure [facility] Facility: Start: 12-11-2019 End: 12-11-2019 Subsequent hospital visit by physician [facility] Covid Screening Schedule [facility] Covid Screening Comment on above: Arrived [...] 12-16-2019 Microscopic examination of blood, culture [facility] Comment on above: Performed By: #### B [id number] #### [facility] [address] [place], [place] [address] Cheryl Srinivasan Performed By: #### C BC #### [facility] [address] [place] [address] Cheryl Srinivasan Plan of Treatment Date Care Activity Detail Author Start: 11-28-2028 DTaP/Tdap/Td vaccine (2 - Td or Tdap) DTaP/Tdap/Td vaccine (2 - Td or Tdap) [facility] [employer] Work Phone: Start: 11-28-2028 DTaP/Tdap/Td vaccine (2 - Td) DTaP/Tdap/Td vaccine (2 - Td) [facility] [place] Start: 03-04-2024 End: 03-04-2024 Patient encounter procedure 03/04/2024 1:00 PM EST Office Visit [facility] [address] [facility] [address] [place] [address] Marina Redd PA [address] [facility] [address] [place] [address] [facility] Start: 12-03-2023 Medicare Annual Wellness (AWV) Medicare Annual Wellness (AWV) [facility] Start: 06-14-2023 End: 06-14-2023 Patient encounter procedure 06/14/2023 1:30 PM EDT Procedure Visit [facility] [address] [place] [id number] Arianna Lou DPM [address] [place] [address] [facility] Start: 06-09-2023 End: 06-09-2023 Patient encounter procedure 06/09/2023 1:00 PM EDT Office Visit [facility] [address] [facility] [place] [phone] Kenia Castillo SENIOR ACCOUNT MANAGER [address] [place] [facility] [address] [facility] Start: 04-17-2023 End: 04-17-2023 Patient encounter procedure 04/17/2023 1:30 PM EST Office Visit [facility] [address] [facility] [address] [place] [address] Marina Redd, PA [address] [facility] [address] [place] [address] [facility] Start: 04-13-2023 End: 04-13-2023 ambulatory 04/13/2023 1:00 PM EST Treatment [facility] [address] [place] [address] Yuliya Romero, PT [address] [place] [address] [facility] Start: 04-11-2023 End: 04-11-2023 ambulatory 04/11/2023 1:00 PM EST Treatment [facility] [address] [place] [address] Kelbley, Maddie, SUPERVISOR GRINDING [facility] Start: 04-06-2023 End: 04-06-2023 ambulatory 04/06/2023 2:00 PM EST Treatment [facility] [address] [place] [address] Maddie Latham, SUPERVISOR GRINDING [facility] Start: 04-05-2023 End: 04-05-2023 ambulatory 04/05/2023 1:00 PM EST Treatment [facility] [address] [place] [address] Valerie Argueta, PT [facility] Start: 04-04-2023 End: 04-04-2023 ambulatory 04/04/2023 1:00 PM EST Treatment [facility] [address] [place] [address] Maddie Latham, SUPERVISOR GRINDING [facility] Start: 03-30-2023 End: 03-30-2023 ambulatory 03/30/2023 2:00 PM EST Treatment [facility] [address] [facility] [address] [place] [address] Maddie Latham, SUPERVISOR GRINDING [facility] Start: 03-28-2023 End: 03-28-2023 ambulatory 03/28/2023 1:30 PM EST Treatment [facility] [address] [place] [address] Maddie Latham, SUPERVISOR GRINDING [facility] Start: 03-23-2023 End: 03-23-2023 ambulatory 03/23/2023 1:00 PM EST Evaluation [facility] [address] [place] [address] Yuliya Romero, PT [address] [facility] [address] [place] [address] Left thigh pain; Muscle strain of left thigh, subsequent encounter [facility] Comment on above: Left thigh pain; Muscle strain of left thigh, subsequent encounter Start: 01-31-2023 Hemoglobin A1c measurement Diabetes: Hemoglobin A1C [facility] Start: 10-20-2023 Glaucoma screening Diabetes: Retinopathy Screening [facility] Start: 09-30-2021 End: 09-30-2021 Patient encounter procedure 09/30/2021 Office Visit Cardiology Ej Foster [place] [address] [facility] Start: 03-10-2021 Creatinine measurement Creatinine monitoring [facility] Start: 03-10-2021 HbA1c (Bld) [Mass fraction] A1C test (Diabetic or Prediabetic) [place], [place] Start: 03-10-2021 Hemoglobin A1c measurement A1C test (Diabetic or Prediabetic) [facility] Start: 03-10-2021 Lipid panel Lipid screen [place], [place] Start: 03-10-2021 Potassium monitoring Potassium monitoring [place] Start: 01-21-2021 Creatinine measurement Creatinine monitoring [facility] Start: 01-21-2021 HbA1c (Bld) [Mass fraction] A1C test (Diabetic or Prediabetic) [facility] Start: 01-21-2021 Potassium monitoring Potassium monitoring [facility] Start: 10-14-2020 Influenza vaccination Flu vaccine (#1) [facility] [address] [employer] Phone: Start: 09-16-2020 End: 09-16-2020 Office Visit 09/16/2020 Office Visit Cardiology Ej Foster MD [address] [place] [address] [facility] Start: 03-10-2020 End: 03-10-2020 Office Visit 03/10/2020 Office Visit Cardiology Ej Foster MD [address] [place] [address] [facility] Start: 02-21-2020 End: 02-21-2020 Office Visit 02/21/2020 Office Visit Cardiology Ej Foster MD [address] [place] [address] [phone] [facility] Start: 01-30-2020 End: 01-30-2020 Office Visit 01/30/2020 Office Visit Cardiology Ej Foster MD [address] [place] [address] [facility] Start: 12-11-2019 Annual Wellness Visit (AWV) Annual Wellness Visit (AWV) [place], [place] Start: 10-15-2019 Influenza vaccination Flu vaccine (#1) [place] Start: 2013 Pneumococcal 65+ years Vaccine (1 of 1 - PPSV23) Pneumococcal 65+ years Vaccine (1 of 1 - PPSV23) [place] Start: 2013 Pneumococcal 65+ years Vaccine (2 of 2 - PPSV23) Pneumococcal 65+ years Vaccine (2 of 2 - PPSV23) [place] Start: 07-17-2012 Shingles Vaccine (2 of 3) Shingles Vaccine (2 of 3) [place] Start: 1998 Screening for malignant neoplasm of colon Colon cancer screen colonoscopy [place], [place] Start: 1998 Shingles Vaccine (1 of 2) Shingles Vaccine (1 of 2) [place] Start: 1993 Screening for malignant neoplasm of colon Colon cancer screen colonoscopy [facility] Work Phone: Start: 1988 Lipid panel Lipid screen [place], [place] Start: 10-04-1967 DTaP/Tdap/Td vaccine (1 - Tdap) DTaP/Tdap/Td vaccine (1 - Tdap) [place] Start: 1966 Diabetic microalbuminuria test Diabetic microalbuminuria test [place], [place] Start: 1958 Diabetic foot examination Diabetic foot exam [place], [place] Start: 1958 Diabetic retinal exam Diabetic retinal exam [place], [place] Start: 1958 Lipid panel Lipid screen [place], [place] Start: 1948 Creatinine measurement Creatinine monitoring [place], [place] Start: 1948 Hepatitis C screening Hepatitis C screen [place], [place] Start: 1948 Potassium monitoring Potassium monitoring [place], [place] Start: 1948 Screening for malignant neoplasm of colon [facility] End: 02-12-2020 Catheterization and angiography procedure details panel 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 Procedure Cardiac Cath Routine One Time for 1 Occurrences starting 02/12/2020 until 02/12/2020 [place] Comment on above: One Time for 1 Occurrences starting 01/15 until 02/12/2020 Continuous pulse oximetry Pulse oximetry, continuous Respiratory Care Routine Every 4hr until discontinued starting 02/12/2020 [place] Comment on above: Every 4hr until discontinued starting End: 12-11-2019 Covid-19 Ambulatory Covid-19 Ambulatory Lab Routine Once for 1 Occurrences starting 12/11/2019 until 12/11/2019 [place] Comment on above: Once for 1 Occurrences starting 12/11/19 20 until 12/11/2019 Covid-19 Ambulatory Covid-19 Amb ulatory Lab Routine 12/11/2019 2:27 PM EDT [place] EKG 12 Lead EKG 12 Lead ECG Routine 02/12/2020 8:26 AM EST [place] End: 02-12-2020 End Tidal CO2 Continuous End Tidal CO2 Continuous Respiratory Care Routine Continuous until discontinued starting 02/12/2020 [place] Comment on above: Continuous until discontinued starting 1 End: 03-10-2020 HbA1c (Bld) [Mass fraction] Hemoglobin A1C Lab Routine Controlled type 2 diabetes mellitus with hyperglycemia, without long-term current use of insulin ([facility]) 1 Occurrences starting 03/10/2020 until 03/10/2020 [place] Comment on above: 1 Occurrences starting 03/10/2020 until 03/10/2020 HbA1c (Bld) [Mass fraction] Hemoglobin A1C Lab Routine Controlled type 2 diabetes mellitus with hyperglycemia, without long-term current use of insulin (HCC) 03/10/2020 12:35 PM EST [place] Oxygen therapy [Mini mum Data Set] Initiate Oxygen Therapy Protocol Respiratory Care Routine Daily until discontinued starting 02/12/2020 [place] Comment on above: Daily until discontinued starting 2019 End: 03-10-2020 VL LOWER EXTREMITY ARTERIAL SEGMENTAL PRESSURES W PPG VL LOWER EXTREMITY ARTERIAL SEGMENTAL PRESSURES W PPG Imaging STAT Pain in both lower extremities PVD (peripheral vascular disease) ([facility]) 1 Occurrences starting 03/10/2020 until 03/10/2020 [place] Comment on above: 1 Occurrences starting 03/10/2020 until 03/10/2020 VL LOWER EXTREMITY ARTERIAL SEGMENTAL PRESSURES W PPG VL LOWER EXTREMITY ARTERIAL SEGMENTAL PRESSURES W PPG Imaging STAT Pain in both lower extremities PVD (peripheral vascular disease) ([facility]) 03/10/2020 1:24 PM EST [place], [place] Immunizations Immunization Date Immunization Notes Care Provider Solis atkinson 12-02-2022 pneumococcal polysaccharide vaccine, 23 valent Yuliya Romero PT Work Phone: [facility] 11-01-2022 influenza, high dose seasonal, preservative-free Yuliya Romero PT Work Phone: [facility] 11-01-2021 Influenza, Seasonal, Quadrivalent, Adjuvanted Yuliya Romero PT Work Phone: [facility] 11-01-2021 SARS-COV-2 (COVID-19 ) vaccine, mRNA, spike protein, LNP, bivalent, preservative free, 30 mcg/0.3 mL dose, mauro-sucrose formulation Yuliya Romero PT Work Phone: [facility] 11-01-2021 SARS-CoV-2, Unspecified Jamie Romero PT Work Phone: [facility] 10-30-2021 Influenza, High-dose Seasonal, Quadrivalent, Preservative Free Yuliya Romero PT Work Phone: [facility] 11-12-2020 Influenza, High-dose Seasonal, Quadrivalent, Preservative Free Yuliya Romero PT Work Phone: [facility] 11-11-2020 Influenza, High-dose Seasonal, Quadrivalent, Preservative Free Yuliya Romero PT Work Phone: [facility] 11-11-2020 Pfizer Purple Cap SARS-CoV-2 Vaccination Yuliya Romero PT Work Phone: [facility] 04-12-2020 Pfizer Purple Cap SARS-CoV-2 Vaccination Yuliya Romero PT Work Phone: [facility] 03-19-2020 Pfizer Purple Cap SARS-CoV-2 Vaccination Yuliya Romero PT Work Phone: [facility] 11-28-2019 influenza, injectabl e, quadrivalent, preservative free Yuliya Romero PT Work Phone: [facility] 11-28-2018 influenza, injectabl e, quadrivalent, preservative free Yuliya Romero PT Work Phone: [facility] 11-28-2018 tetanus toxoid, redu hiral diphtheria toxoid, and acellular pertussis vaccine, adsorbed Yuliya Romero PT Work Phone: [facility] 11-27-2018 influenza, high dose seasonal, preservative-free Yuliya Romero PT Work Phone: [facility] 11-27-2017 influenza, high dose seasonal, preservative-free Yuliya Romero PT Work Phone: [facility] 11-27-2017 Influenza, High-dose Seasonal, Quadrivalent, Preservative Free Yuliya Romero PT Work Phone: [facility] 11-22-2016 influenza, injectabl e, quadrivalent, contains preservative Yuliya Romero PT Work Phone: [facility] 11-22-2016 influenza, injectabl e, quadrivalent, preservative free Yuliya Romero PT Work Phone: [facility] 07-29-2015 pneumococcal conjuga te vaccine, 13 valent Yuliya Romero PT Work Phone: [facility] 01-21-2015 influenza, seasonal, injectable, preservative free Yuliya Romero PT Work Phone: [facility] 12-11-2013 influenza, injectabl e, quadrivalent, preservative free Yuliya Romero PT Work Phone: [facility] 03-13-2013 influenza, seasonal, injectable Yuliya Romero PT Work Phone: [facility] 03-13-2013 influenza, seasonal, injectable, preservative free Yuliya Romero PT Work Phone: [facility] 03-13-2013 pneumococcal polysaccharide vaccine, 23 valent Yuliya Romero PT Work Phone: [facility] 05-22-2012 zoster vaccine, live Yuliya Romero PT Work Phone: [facility] 02-02-2012 influenza, seasonal, injectable Yuliya Romero PT Work Phone: [facility] Payers Date Payer Category Payer Self-pay 2023 Medicare [id number] 2023 Medicare [id number] 2023 Unknown [id number] 1959 Medicare [id number] 1959 Unknown [id number] 1948 Unknown [id number] 2.16.84 0.1.159289.3.579.2.593 1948 Unknown [id number] 2.16.8 40.1.116916.3.579.2.173 1948 Unknown [id number] 2.16.8 40.1.461319.3.579.2.1286 1948 Unknown [id number] 2.16.8 40.1.572884.3.579.2.1286 1948 Unknown [id number] 2.16.8 40.1.622800.3.579.2.1286 1948 Unknown [id number] 2.16.84 0.1.195617.3.579.2.1259 1948 Unknown [id number] 2.16.84 0.1.075160.3.579.2.1259 1948 Unknown [id number] 2.16.84 0.1.979137.3.579.2.1259 1948 Unknown [id number] 2.16.84 0.1.718572.3.579.2.1259 1948 Unknown [id number] 2.16.84 0.1.923854.3.579.2.1259 1948 Unknown [id number] 2.16.84 0.1.423216.3.579.2.1259 1948 Unknown [id number] 2.16.84 0.1.033585.3.579.2.1259 1948 Unknown [id number] 2.16.84 0.1.399112.3.579.2.1259 1948 Unknown [id number] 2.16.84 0.1.693525.3.579.2.1259 1948 Unknown [id number] 2.16.84 0.1.606170.3.579.2.1259 1948 Unknown [id number] 2.16.84 0.1.979843.3.579.2.1259 1948 Unknown [id number] 2.16.84 0.1.095321.3.579.2.1259 1948 Unknown [id number] 2.16.84 [id number] 1950 Unknown [id number] 2.16.84 0.1.420161.3.579.2.1259 1950 Unknown [id number] 2.16.84 0.1.034539.3.579.2.1259 1950 Unknown [id number] 2.16.84 0.1.247621.3.579.2.1259 1950 Unknown [id number] 2.16.84 0.1.564551.3.579.2.1259 1950 Unknown [id number] 2.16.84 0.1.990176.3.579.2.1259 1950 Unknown [id number] 2.16.84 0.1.304349.3.579.2.1259 1950 Unknown [id number] 2.16.84 0.1.406210.3.579.2.1259 1950 Unknown [id number] 2.16.84 0.1.685739.3.579.2.1259 1950 Unknown [id number] 2.16. 840.1.174469.3.579.2.196 1950 Unknown [id number] 2.16. 840.1.506848.3.579.2.196 1950 Unknown [id number] 2.16. 840.1.839147.3.579.2. Unknown [id number] 2.16.8 40.1.430573.3.579.2.531 Social History Date Type Detail Facility Tobacco smoking stat us [facility] Start[facility] 1950 [facility]igned At [facility] Start: 01-22-2020 End: 08-02-2022 Tobacco smoking status NHIS Never smoker [facility] Start: 01-22-2020 End: 08-02-2022 Tobacco use and exposure [facility] Start: 03-10-2020 End: 03-14-2023 Alcohol intake [facility]: 02-12-2020 Alcohol Comment having had sin ce December [facility] Exposure to SARS-CoV -2 (event) Not sure Lorie [facility] Start: 09-16-2020 End: 12-02-2022 [facility] Start: 12-02-2022 End: 03-14-2023 Tobacco use panel [facility] Start: 10-25-2022 Alcohol Comment drinks alcohol 2-3 times a week [facility] Start: 1950 Sex Assigned At Male [facility] Clinical Notes 09-23-2020 to 03-30-2023 Telephone Encounter - Marjorie Thayer - 03/30/2023 1:17 PM ESTTelephone Encounter - Marjorie Thayer - 03/30/2023 1:17 PM ESTTelephone Encounter - Marjorie Thayer - 03/30/2023 12:51 PM EST Note Date & Type Note Facility 03-30-2023 Telephone encount er Note 04/05 @ 1:00 pm . [facility] 03-30-2023 Miscellaneous Notes Formattin g of this note might be different from the original. 04/05 @ 1:00 pm . So that reference # does nothing? His eval was 2/8, and is it noted per [facility] to continue, auth is needed? Would it be ok to schedule? documented in this encounter [facility] 03-30-2023 Telephone encount er Note So that reference # does nothing? His eval was 2/8, and is it noted per [facility] to continue, auth is needed? [facility] 03-30-2023 Telephone encount er Note Would it be ok to schedule? [facility] 03-29-2023 Telephone encount er Note Pt cx PT out. [facility] 03-29-2023 Miscellaneous Notes Formattin g of this note might be different from the original. Pt cx PT out. documented in this encounter [facility] 09-20-2021 Note [id number]#1.00[facility] 09-20-2021 Note [id number]#1.00[facility] 09-18-2021 Note Education Materials POST OPERATIVE TOTAL [...] #8 follow up in office with physician medical assistant prn Justo Redd as scheduled #9 [facility] 360 [...] to the nearest hospital's emergency services department. [facility] 09-18-2021 Note [facility] Summary PERSON INFORMATION Name ZAINA WINTERS Age 70 Years 1950 Sex MALE Language Kinyarwanda PCP Jeannine Hurley Marital Status Med Service Observation Acct# Arrival 09/17/2021 08:03:00 Visit Reason SURGERY-RIGHT TOTAL KNEE (GABRIELA) Acuity LOS 000 26:09 Address: [address] [place] [id number] Comment: PROVIDER INFORMATION VITALS INFORMATION Vital Sign [...] range between ( 1.3 and 2.9 ) [place] Abs#: 1.3 x103/mcL -- Normal range between ( 0.0 and 0.8 ) Auto Baso %: 0.0 % -- Normal range between ( 0.2 and 2.0 ) Auto [place] %: 9 % -- Normal range between [...] Follow up: With: Address: When: Marina Redd [address] [place] [address] [address] [place] [address] [facility] (1) 10/01/2021 11:00 AM DIAGNOSIS Acute pain of right knee Comment: PHYS DOC NOTES [facility] 03-04-2021 Note [id number][facility] Note [id number]#1.[facility] 03-04-2021 Note [id number]#1.[facility] 03-03-2021 Note Education Materials POST OPERATIVE TOTAL [...] #8 follow up in office with physician medical assistant prn Justo Redd as scheduled #9 [facility] 360 [...] to the nearest hospital's emergency services department. [facility] 03-03-2021 Note [facility] 2[facility] Clinical Discharge Summary PERSON INFORMATION Name ZAINA WINTERS Age 70 Years 1950 Sex MALE Language Kinyarwanda PCP Jeannine Hurley Marital Status Med Service Observation Acct# Arrival 03/02/2021 05:52:00 Visit Reason SURGERY - LEFT TOTAL KNEE POSSIBLE STEMS AND AUGS - NEX GEN TIBIA Acuity LOS 000 26:57 Address: [address] [place] [id number] Comment: PROVIDER INFORMATION VITALS INFORMATION Vital Sign [...] range between ( 1.3 and 2.9 ) [place] Abs#: 1.9 x103/mcL -- Normal range between ( 0.0 and 0.8 ) Auto Baso %: 0.0 % -- Normal range between ( 0.2 and 2.0 ) Auto [place] %: 10 % -- Normal range between [...] range between ( 74 and 118 ) [facility] Lab Order 03/03/2021 4:47 AM Tube Collected: [...] up: With: Address: When: Marina Redd [address] [facility], [address] [place] [address] Business (1) 03/15/2021 10:30 AM With: Address: When: Jeannine Tonja [facility] [place] [address] Business (1) DIAGNOSIS Aftercare following left knee joint rep (more content not included)... [facility] 09-23-2020 History of Presen t illness Narrative Instructed on policies and procedures. documented in this encounter [employer] Phone: Evaluation note Diagnosis Persistent atrial fibrillation (HCC) Atrial fibrillation SOB (shortness of breath) Shortness of breath Essential hypertension Unspecified essential hypertension Other specified diabetes mellitus with other specified complication, unspecified whether detention insulin use (HCC) Class 2 obesity with body mass index (BMI) of 36.0 to 36.9 in adult, unspecified obesity type, unspecified whether serious comorbidity present Pain in both lower extremities documented in this encounter [employer] Phone: evaluation note* Diagnosis Left thigh pain- Primary Pain in soft tissues of limb Muscle strain of left thigh, subsequent encounter documented in this encounter [facility] assessment [facility] Work Phone: Reason for visit Narrative* Consultation (Routine) - Pending Review Specialty Diagnoses / Procedures Referred By Contac t Referred To Contact Physical Therapy Diagnoses Left thigh pain Muscle strain of left thigh, subsequent encounter Procedures ID OFFICE/OUTPATIENT NEW H[facility] 60 MINUTES Marina Redd PA [address] [facility] [address] [place] [address] Yuliya Romero, PT [address] [facility] [address] [place] [address] Referral ID Status Reason Start Date Expiration Date Visits Requested Visits Authorized [id number] Pending Review Consult and Treat 03/23/2023 03/09/2024 [...] mellitus with other specified complication, unspecified whether detention insulin use (HCC) Class 2 obesity with body mass index (BMI) of 36.0 to 36.9 in adult, unspecified obesity type, unspecified whether serious comorbidity present Procedures ECHO Complete 2D W Doppler W Color Ej Foster MD [address] [place] [address] [place] [address] [facility] [address] [place] [address] Status Reason Specialty Diagnoses / Procedures Referre d By Contact Referred To Contact Closed Radiology Diagnoses Pain in both lower extremities PVD (peripheral vascular disease) (HCC) Procedures VL LOWER EXTREMITY ARTERIAL SEGMENTAL PRESSURES W PPG Ej Foster MD [address] [place] [address] [place] [address] Status Reason Specialty Diagnoses / Procedures Referre d By Contact Referred To Contact Closed Cardiology Diagnoses Persistent atrial fibrillation (HCC) SOB (shortness of breath) Essential hypertension Other specified diabetes mellitus with other specified complication, unspecified whether watermelon inspector insulin use (HCC) Class 2 obesity with body mass index (BMI) of 36.0 to 36.9 in adult, unspecified obesity type, unspecified whether serious comorbidity present Pain in both lower extremities Procedures Echo 2D w doppler w color complete Ej Foster MD [address] [place] [address] [place] [address] History of Present Illness * Nini Todd - 01/22/2020 11:30 AM EST Explained policies and procedures of an echocardiogram/Doppler study. documented in this encounter* Arianna Allen RN - 02/12/2020 9:42 AM EST Drying Machine Receiver reviewed discharge instructions with patient and spouse. Both verbalized understanding. Denies questions. Copy of discharge instructions given to patient. documented in this encounter Assessments Diagnosis Persistent atrial fibrillation (HCC) Atrial fibrillation Essential hypertension Unspecified essential hypertension SOB (shortness of breath) Shortness of breath Fluid retention Other fluid overload Other specified diabetes mellitus with other specified complication, unspecified whether detention insulin use (HCC) Class 2 obesity with body mass index (BMI) of 36.0 to 36.9 in adult, unspecified obesity type, unspecified whether serious comorbidity present Diagnosis Persistent atrial fibrillation (HCC) Atrial fibrillation Essential hypertension Unspecified essential hypertension SOB (shortness of breath) Shortness of breath Fluid retention Other fluid overload Other specified diabetes mellitus with other specified complication, unspecified whether watermelon inspector insulin use (HCC) Class 2 obesity with [...] mellitus with other specified complication, unspecified whether watermelon inspector insulin use (HCC) Class 2 obesity with body mass index (BMI) of 36.0 to 36.9 in adult, unspecified obesity type, unspecified whether serious comorbidity present COVID-19 Fluid retention Other fluid overload Pain in both lower extremities Diagnosis Pain in both lower extremities PVD (peripheral vascular disease) ([facility]) Peripheral vascular disease, unspecified Discharge Instructions * [...] doctor prescribes. Do not take any vitamins, aijo-jmd-qervoer medicines, or herbal products without talking to [...] or uneven pulse. After calling 911, the toll booth operator may tell you to chew 1 adult-strength [...] Where can you learn more? Go to [email or web address] and sign in to your [employer] account. Enter A617 in the Search Health Information box to learn more about Electrical [employer]: What to Expect at Home. If you do not have an account, please click on the Sign Up Now link. [employer]. Care instructions adapted under license by [employer] This care instruction is for use with your licensed healthcare professional. If you have questions about amedical condition or this instruction, always ask your healthcare professional. [employer] disclaims any warranty or liability for your use of this information. Content Version: 10.6.436191; Current as of: April 04, 2014 documented [...] and content) DATE CREATED AUTHOR 12/21/2019 [facility] DATE CREATED AUTHOR AUTHOR'S ORGANIZ ATION 06/12/2021 [facility] dical Specialist DATE CREATED AUTHOR AUTHOR'S ORGANIZ ATION 10/25/2021 [facility] DATE CREATED AUTHOR AUTHOR'S ORGANIZ ATION 05/04/2022 [facility] DATE CREATED AUTHOR AUTHOR'S ORGANIZ ATION 05/27/[address] [facility] DATE CREATED AUTHOR AUTHOR'S ORGANIZ ATION 07/02/2023 [facility] DATE CREATED AUTHOR AUTHOR'S ORGANIZ ATION 10/15/2023 [facility] Specialists EPIC DATE CREATED AUTHOR AUTHOR'S ORGANIZ ATION 10/29/2023 [facility] Reason for Visit (unrecogniz ed section and content) Status Reason Specialty Diagnoses / Procedures Referred By Contact Referred To Contact Closed Cardiology / Echocardiography Diagnoses Persistent atrial fibrillation (HCC) Essential hypertension SOB (shortness of breath) Fluid retention Other specified diabetes mellitus with other specified complication, unspecified whether watermelon inspector insulin use (HCC) Class 2 obesity with body mass index (BMI) of 36.0 to 36.9 in adult, unspecified obesity type, unspecified whether serious comorbidity present Procedures ECHO Complete 2D W Doppler W Color Ej Foster MD [address] [place] [address] [place] [address] [facility] Echo [address] [place] [address] [place] [address] Status Reason Specialty Diagnoses / Procedures Referre d By Contact Referred To Contact Closed Radiology Diagnoses Pain in both lower extremities PVD (peripheral vascular disease) (HCC) Procedures VL LOWER EXTREMITY ARTERIAL SEGMENTAL PRESSURES W PPG Ej Foster MD [address] [place] [address] [place] [address] Status Reason Specialty Diagnoses / Procedures Re ferred By Contact Referred To Contact Authorized Cardiology Diagnoses Essential hypertension Persistent atrial fibrillation (HCC) SOB (shortness of breath) Other specified diabetes mellitus with other specified complication, unspecified whether detention insulin use (HCC) COVID-19 Procedures Referral to Cardiac Cath ID CARDIOVERSION ELECTIVE ARRHYTHMIA EXTERNAL Ej Foster MD [address] [place] [address] [place] [address] [place] [address] Status Reason Specialty Diagnoses / Procedures Referre d By Contact Referred To Contact Closed Cardiology Diagnoses Persistent atrial fibrillation (HCC) SOB (shortness of breath) Essential hypertension Other specified diabetes mellitus with other specified complication, unspecified whether watermelon inspector insulin use (HCC) Class 2 obesity with body mass index (BMI) of 36.0 to 36.9 in adult, unspecified obesity type, unspecified whether serious comorbidity present Pain in both lower extremities Procedures Echo 2D w doppler w color complete Ej Foster MD [address] [place] [address] [place] [address] Reason Onset Date Comments re: PT today [...] [facility] for PT 03/30/2023 He called no paolag he had just gotten verification per [facility] that if referring provider refers for therapy then PT would be covered. He gave a reference # [id number]. Care Teams (unrecognized sec tion and content) Gas Analyst Relationship Specialty Start Date End Date Bernie Adam MD [address] [facility] [place] [address] PCP - ACO Reach 07/07/22 Bernie Adam MD [address] [facility] [place] [address] PCP - General Family Medicine 08/01/22 Gas Analyst Relationship Specialty Start Date End Date Bernie Adam MD [address] [facility] [place] [address] PCP - ACO Reach 07/07/22 Bernie Adam MD [address] [facility] [place] [address] PCP - General Family Medicine 08/01/22 Gas Analyst Relationship Specialty Start Date End Date Bernie Adam MD [address] [facility] [place] [address] PCP - ACO Reach 07/07/22 Bernie Adam MD [address] [facility] [place] [address] PCP - General Family Medicine 08/01/22 Gas Analyst Relationship Specialty Start Date End Date Bernie Adam MD [address] [place] [address] PCP - ACO Reach 07/07/22 Bernie Adam MD [address] [place] [address] PCP - General Family Medicine 08/01/22 Gas Analyst Relationship Specialty Start Date End Date Bernie Adam MD [address] [place] [address] PCP - ACO Reach 07/07/22 Bernie Adam MD [address] [place] [address] PCP - General Family Medicine 08/01/22 Team [...] BE BASED ON THE PRIMARY CLINICAL RECORDS. [employer] [facility]. provides no warranty or guarantee of the accuracy or completeness of information in this document.
[2023-11-13 08:52] VITALS: BP 140/89; PULSE 65; TEMP 35.9; O2SAT 96
[2023-11-13 09:06] LABS: Glucometer 114 mg/dL (74-106)
[2023-11-13 09:33] VITALS: PULSE 133; O2SAT 100
[2023-11-13 09:36] VITALS: PULSE 107; O2SAT 99
[2023-11-13] MEDS: BUPIVACAINE HCL 0.25% PF 25 MG/10 ML VIAL 4 ML INJ (09:39)
[2023-11-13] MEDS: TRIAMCINOLONE ACETONIDE 40 MG/ML VIAL IM (09:40)
[2023-11-13] MEDS: LIDOCAINE HCL 2% 400 MG/20 ML MDV INJ (09:40)
[2023-11-13] MEDS: IOHEXOL 240 MG/ML - 10 ML VIAL 12 MG INJ (09:40)
[2023-11-13 09:41] VITALS: BP 168/85
--- NOTE | 2023-11-13 09:46 | W.PM.PROCNOT ---
Date of procedure: 11/13/23 Pre-op diagnosis: Pain due to left hip osteoarthritis Post-op diagnosis: same as pre-op Procedure: Procedure: Left hip injection Medications: Bupivacaine 0.25% 3cc, kenalog 40mg I explained the details of the procedure to the patient including the risks, benefits and alternatives. We had an informed discussion and the patient verbalized understanding and signed the consent form. All questions were answered appropriately.? A time out was performed.? After obtaining a comfortable supine position, the skin overlying the hip, subtrochanteric region, and joint space were prepped with alcohol. A sterile syringe containing the above medication was attached to a 25 guage, 3.5 inch spinal needle under strict aseptic technique. X ray was used to identify the joint space and the femoral neck on the left side.? The needle was than advanced through the subcutaneous tissue after local injection of 1% lidocaine.? The contents of the syringe were gently injected without any resistance into the joint space after contrast (isovue) outlined the appropriate area. The needle was removed and pressure was applied to the injection site to decrease the incidence of ecchymosis and hematoma formation.? A sterile bandage was applied. Post procedural instructions were given to the patient. Anesthesia: Local Surgeon: Ever Guillen Pathology: none sent Condition: stable Disposition: no change
== END 2023-11-13 09:45 | disposition home or self-care (01) ==
LOC: SURGOUT 08:12
PROVIDERS: Visit Provider Anesthesiology
DX: M16.12 Unilateral primary osteoarthritis, left hip (principal)
CPT/HCPCS: 20610; 36415; 77002; 82948; J0665; J3301; Q9966

== ENCOUNTER 2023-11-22 13:03 | Outpatient (OUT) | payer OTHER, SELFPAY ==
--- OUTSIDE RECORDS SUMMARY | 2023-11-22 13:20 | XMS_ITS | CCD ---
Author Organization [facility] Care Team Providers Care Batch Room Technician Name Role Phone Unavailable Primary Care Provider Unavailabl e MISC, DOCTOR Primary Care Unavailable MATTEVI, ARMANDO Admitting Unavailable MATTEVI, ARMANDO Consulting Unavailable MATJUAN DAVID, ARMANOD Attending Unavailable Rupesh Ulrich Consulting Unavailable Jeannine Evangelista Primary Care Provider [phone] Tonja [employer] - Jeannine CASH Primary Care P rovider EJ FOSTER Referring Unavailable JEANNINE EVANGELISTA Primary Care Unavailab Bernie Barrios MD Unavailable Bernie Adam MD Primary Care Provider EVANS Redd Attending Provider AWAIS Evangelista Primary Care Provider AWAIS Evangelista Primary Care Provider EVANS Redd Attending Provider [phone] Marina Redd Attending Unavailable Marina Redd Admitting [...] REDD Attending Unavailable MARINA REDD Referring Unavailable REDD, MARINA Naidu Attending Unavailable REDD, MARINA Naidu Referring Unavailable BLACKSLORIN, YULIYA Hwang Attending Unavailable REDD, MARINA Naidu Referring Unavailable BLACKSTON, YULIYA Hwang Attending Unavailable KENIA CASTILLO Referring Unavailable HEATHER, YULIYA Hwang Attending Unavailable NAHUN, MARINA Naidu Referring Unavailable BLACKSTON, YULIYA Hwang Attending Unavailable REDD, MARINA Naidu Referring Unavailable BLACKSTON, YULIYA T Attending Unavailable REDD, MARINA Nadiu Referring Unavailable BLACKSTON, YULIYA T Attending Unavailable MARINA REDD Referring Unavailable NAHUN, MARINA Naidu Attending Unavailable MARINA REDD Referring Unavailable JR. MARIA GUADALUPE, DAVID Matthews Attending Unavaila jose g CASTILLO, KENIA Attending Unavailable BOBBY PINK Attending Unavailable JR. MARIA GUADALUPE, DAVID Matthews Referring Unavaila jose g CASTILLO, KENIA Attending Unavailable ARIANNA LOU Attending Unavailable VERONICA, KENIA Attending Unavailable VERONICA, KENIA Attending Unavailable STEFFANY, ARIANNA Alfonso Attending Unavailable Jair SANTAMARIA, Bernie Unavailable [phone] Medications Current Medications Medication Drug Class(es) Dates Sig (Normalized) Sig (Original) acetaminophen 325 mg / HYDROcodone bitartrate 5 mg oral tablet (2 sources) Opioid Agonist Start: 06-28-2023 take 1 tablet by mouth twice daily as needed HYDROcodone-acetam inophen ([place]) 5-325 MG tablet Take 1 tablet by mouth 2 (two) times a day as needed 06/28/2023 Active allopurinol 100 mg oral tablet (13 sources) Xanthine Oxidase Inhibitor Start: 09-15-2023 allopurinol (Zyloprim) 100 MG tablet Indications: 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 TAKE 1 TABLET IN THE MORNING 90 tablet 1 09/15/2023 Active Start: 10-18-2022 allopurinol (Z yloprim) 100 MG tablet Indications: 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 TAKE 1 TABLET IN THE MORNING 90 tablet 1 10/18/2022 Active take 1 tablet by abdullahi th once daily allopurinol (ZYLOPRIM) 100 MG tablet Take 100 mg by mouth daily 0 Active amitriptyline hydrochloride 10 mg oral tablet (2 sources) Tricyclic Antidepressant Start: 07-18-2023 take 1 tablet by mouth at bedtime amitriptyline (Elavil) 10 MG tablet Indications: Insomnia, unspecified type , Lumbar radiculopathy Take 1 tablet (10 mg) by mouth at bedtime 90 tablet 07/18/2023 Active apixaban 5 mg oral tablet (14 sources) Factor Xa Inhibitor Start: 10-24-2023 apixaban (Eliquis) 5 MG tablet Indications: Paroxysmal atrial fibrillation (CMS/HCC) TAKE 1 TABLET IN THE MORNING AND 1 TABLET BEFORE BEDTIME 180 tablet 1 10/24/2023 Active Start: 01-22-2020 End: 09-30-2020 take 1 tablet by mouth twice daily apixaban (ELIQUIS) 5 MG TABS tablet Take 1 tablet by mouth 2 times daily for 14 days 28 tablet 0 09/16/2020 09/30/2020 Active Eliquis 5 MG tab let every 12 (twelve) hours. 0 Active atorvastatin 10 mg oral tablet (7 sources) HMG-CoA Reductase Inhibitor Start: 06-16-2023 atorvastatin (Lipito r) 10 MG tablet Indications: Other hyperlipidemia (CMS/HCC) TAKE 1 TABLET IN THE MORNING 90 tablet 1 06/16/2023 Active Start: 12-26-2022 atorvastatin ( Lipitor) 10 MG tablet Indications: Other hyperlipidemia (CMS/HCC) TAKE 1 TABLET IN THE MORNING 90 tablet 0 12/26/2022 Active baclofen 10 mg oral tablet (2 sources) gamma-Aminobutyric Acid-ergic Agonist Start: 10-04-2023 take 1 tablet by mouth in the morning, then take 1 tablet by mouth in the evening, then take 1 tablet by mouth at bedtime baclofen (Lioresal) 10 MG tablet Take 10 mg by mouth in the morning and 10 mg in the evening and 10 mg before bedtime. 10/04/2023 Active Bioflavonoid Products (VITAMIN C PLUS PO) (2 sources) Bioflavonoid Products (VITAMIN C PLUS PO) Take by mouth Active cyclobenzaprine hydrochloride 10 mg oral tablet (2 sources) Muscle Relaxant Start: 09-20-2023 take 1 tablet by mouth three times daily as needed cyclobenzaprine (Flexeril) 10 MG tablet Take 10 mg by mouth 3 (three) times a day as needed 09/20/2023 Active hydroCHLOROthiazide 12.5 mg / losartan potassium 50 mg oral tablet (7 sources) Thiazide Diuretic, Angiotensin 2 Receptor Lex Start: 09-25-2023 losartan-hydroCHLO ROthiazide (Hyzaar) 50-12.5 MG tablet Indications: Primary hypertension (CMS/HCC) TAKE 1 TABLET IN THE MORNING 90 tablet 1 09/25/2023 Active Start: 07-28-2022 take 1 tablet by abdullahi th in the morning losartan-hydroCHLOROthiazide (Hyzaar) 50-12.5 MG tablet Indications: Primary hypertension [...] (CULTURELLE PO) Take by mouth 0 Active metFORMIN hydrochloride 500 mg oral tablet (2 sources) Biguanide Start: 09-13-2023 metFORMIN (Glucophage) 500 MG tablet Indications: Type 2 diabetes mellitus with diabetic peripheral angiopathy without gangrene (CMS/HCC) TAKE 1 TABLET IN THE MORNING AND 1 TABLET IN THE EVENING WITH MEALS 180 tablet 09/13/2023 Active metoprolol tartrate 25 mg oral tablet (13 sources) beta-Adrenergic Lex Start: 09-15-2023 take 0.5 tablet by mouth in the morning, then take 0.5 tablet by mouth at bedtime, then take 0.5 tablet by mouth in the morning metoprolol tartrate (Lopressor) 25 MG tablet Indications: Primary hypertension (CMS/HCC) Take 0.5 tablets (12.5 mg) by mouth in the morning and 0.5 tablets (12.5 mg) before bedtime. Taking half a tablet in the morning and evening.. 90 tablet 1 09/15/2023 Active Start: 03-10-2020 take 0.5 tablet by m outh twice daily metoprolol tartrate (LOPRESSOR) 25 MG [...] with other specified complication, unspecified whether terminal supervisor insulin use (HCC) , Class 2 obesity with body mass index (BMI) of 36.0 to 36.9 in adult, unspecified obesity type, unspecified whether serious comorbidity present TAKE 1 TABLET BY MOUTH TWICE DAILY 180 tablet 3 01/22/2020 Active metoprolol tartr ate (Lopressor) 25 MG tablet every 12 (twelve) hours. 0 Active omeprazole 20 mg delayed release oral capsule (13 sources) Proton Pump Inhibitor Start: 04-04-2023 take 1 capsule by mouth before mealtime omeprazole (PriLOSEC) [address] capsule Indications: Gastroesophageal reflux disease without esophagitis Take 1 capsule (20 mg) by mouth in the morning. Take before meals. Do not crush or chew.. 90 capsule 1 04/04/2023 Active Start: 01-14-2023 omeprazole (Pr iLOSEC) [address] capsule Indications: Gastroesophageal reflux disease without esophagitis TAKE 1 CAPSULE EVERY MORNING BEFORE A MEAL 90 capsule 1 01/14/2023 Active Start: 01-21-2020 take [address] capsule [address] [facility] once daily omeprazole (PRILOSEC) 20 MG delayed release capsule Take 20 mg by mouth Daily 0 01/21/2020 Active rOPINIRole 1 mg oral tablet (8 sources) Nonergot Dopamine Agonist Start: 04-04-2023 take 1 tablet by mouth at bedtime rOPINIRole (Requip) 1 MG tablet Indications: Restless legs syndrome Take 1 tablet (1 mg) by mouth at bedtime 90 tablet 1 04/04/2023 Active Start: 10-04-2022 End: 04-02-2023 take 1 tablet [...] mL tamsulosin hydrochloride 0.4 mg oral capsule (7 sources) alpha-Adrenergic Lex Start: 09-15-2023 tamsu losin (Flomax) 0.4 MG 24 hr capsule Indications: Benign prostatic hyperplasia with nocturia TAKE 1 CAPSULE IN THE MORNING 90 capsule 1 09/15/2023 Active Start: 12-02-2022 End: 05-31-2023 take 1 capsule [...] 0 11/01/2022 Active VITAMIN D, CHOLECALCIFEROL, PO (7 sources) VITAMIN D, CHOLECALCIFEROL, PO Vitamin D Active VITAMIN D, OWEN CALCIFEROL, PO Vitamin D 0 Active Completed/Discontinued Medications [...] mellitus with other specified complication, unspecified whether [facility] insulin use (HCC) , Class 2 obesity [...] Problem Date Documented Date Episodic/Chronic Cardiac dysrhythmias (20 sources) Unspecified atrial fibrillation; 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: [Persistent atrial fibrillation] Onset: 12-17-2019 01-22-2020 Chronic Diabetes mellitus with complications (1 source) Type 2 diabetes mellitus with diabetic nephropathy; 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: [Type 2 diabetes mellitus with diabetic nephropathy] Onset: 08-30-2021 Chronic Diabetes mellitus without complication (12 sources) Diabetes mellitus; 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: [Type 2 diabetes mellitus well controlled] Onset: 01-02-2020 Chronic Disorders of lipid metabolism (15 sources) Mixed hyperlipidemia; 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: [Hyperlipidemia] Onset: 12-12-2018 Resolved: 10-04-2022 07-18-2022 Chronic Esophageal disorders (7 sources) Gastroesophageal reflux disease without esophagitis; 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: [Gastro-esophageal reflux disease without esophagitis] Onset: 07-18-2022 07-18-2022 Chronic Essential hypertension (18 sources) Essential hypertension; 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: [Essential (primary) hypertension] Onset: 01-22-2020 01-22-2020 Chronic Fracture of neck of femur (hip) (1 source) Stress fracture, left femur, initial encounter for fracture; 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: [Stress fracture, left femur, initial encounter for fracture] Onset: 06-14-2023 Episodic Gout and other crystal arthropathies (14 sources) 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; 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: [Idiopathic chronic gout, left ankle and foot, without tophus (tophi)] Onset: 07-29-2015 07-18-2022 Chronic Mycoses (8 sources) Tinea pedis; 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: [Tinea pedis] Onset: 11-28-2018 10-04-2022 Episodic Nutritional deficiencies (7 sources) Vitamin D deficiency; 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: [Vitamin D deficiency, unspecified] Onset: 05-14-2020 10-04-2022 Chronic Osteoarthritis (14 sources) Bilateral osteoarthritis of knees; 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: [Bilateral primary osteoarthritis of knee] Onset: 10-04-2022 10-04-2022 Chronic Other aftercare (1 source) rn long term care (current) use of anticoagulants; 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: [[facility] (current) use of anticoagulants] Onset: 05-03-2022 Episodic Other connective tissue disease (7 sources) Artificial knee joint present; 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: [Presence of unspecified artificial knee joint] Onset: 03-03-2021 10-04-2022 Chronic Other connective tissue disease (7 sources) History of total knee arthroplasty; 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: [Presence of left artificial knee joint] Onset: 03-15-2021 10-04-2022 Chronic Other connective tissue disease (1 source) Pain in bilateral legs; 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: [Pain in right leg] Episodic Other connective tissue disease (1 source) Pain of left thigh; 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: [Pain in left thigh] 03-23-2023 Episodic Other connective tissue disease (2 sources) Pain in toe; 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: [Pain in right toe(s)] 11-15-2023 Episodic Other connective tissue disease (2 sources) Pain in bilateral legs; 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: [Pain in both lower extremities] Other hereditary and degenerative nervous system conditions (7 sources) Restless legs; 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: [Restless legs syndrome] Onset: 07-28-2022 07-28-2022 Chronic Other infections; including parasitic (7 sources) Post-viral disorder; 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: [[id number] condition] Onset: 04-27-2020 10-04-2022 Chronic Other inflammatory condition of skin (7 sources) Psoriasis; 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: [Psoriasis, unspecified] Onset: 06-26-2017 10-04-2022 Chronic Other lower respiratory disease (3 sources) Shortness of breath; 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: [SHORTNESS OF BREATH] Onset: 12-16-2019 Episodic Other lower respiratory disease (4 sources) Dyspnea; 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: [Shortness of breath] Episodic Other nervous system disorders (7 sources) Difficulty walking; 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: [Difficulty in walking, not elsewhere classified] Onset: 03-07-2021 10-04-2022 Chronic Other nutritional; endocrine; and metabolic disorders (4 sources) Obesity; 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: [Obesity, unspecified] Chronic Other nutritional; endocrine; and metabolic disorders (1 source) Morbid (severe) obesity due to excess calories; 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: [Morbid (severe) obesity due to excess calories] Onset: 05-03-2022 Chronic Other skin disorders (1 source) Dystrophia unguium; 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: [Nail dystrophy] 11-15-2023 Episodic Peripheral and visceral atherosclerosis (8 sources) Peripheral vascular disease; 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: [Peripheral vascular [...] Other Problems Problem Classification Problem Date Documented Date Episodic/Chronic Diabetes mellitus without complication (7 sources) Impaired fasting glycemia; 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: [Impaired fasting glucose] Onset: 12-12-2018 10-04-2022 Episodic Other acquired deformities (7 sources) Acquired unequal leg length; 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: [Unequal limb length (acquired), unspecified site] Onset: 05-26-2021 10-04-2022 Episodic Other REFLESHER infection and poliomyelitis (14 sources) H/O: poliomyelitis; 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: [Personal history of poliomyelitis] Onset: 07-29-2015 10-04-2022 Episodic Other connective tissue disease (2 sources) Muscle weakness of limb; 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: [Other symptoms and signs involving the musculoskeletal system] Onset: 06-16-2023 06-16-2023 Episodic Other nervous system disorders (2 sources) Numbness; 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: [Anesthesia of skin] Onset: 06-16-2023 06-16-2023 Episodic Other nervous system disorders (2 sources) Paresthesia; 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: [Paresthesia of skin] Onset: 06-16-2023 06-16-2023 Episodic Other non-traumatic joint disorders (7 sources) Hip pain; 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: [Pain in left hip] Onset: 10-25-2022 10-25-2022 Episodic Other upper respiratory disease (7 sources) Pain in face; 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: [Other specified disorders of nose and nasal sinuses] Onset: 12-12-2018 Resolved: 09-19-2023 10-04-2022 Episodic Pneumonia (except that caused by tuberculosis or sexually transmitted disease) (19 sources) Other viral pneumonia; 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: [Viral pneumonia] Onset: 12-16-2019 Resolved: 09-19-2023 01-22-2020 Episodic Residual codes; unclassified (7 sources) Peripheral edema; 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: [Edema, unspecified] Onset: 11-28-2018 10-04-2022 Episodic Spondylosis; intervertebral disc disorders; other back problems (9 sources) Acute low back pain; 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: [Acute left-sided low back pain without sciatica] Onset: 10-25-2022 10-25-2022 Episodic Viral infection (16 sources) Other specified viral infection; 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: [COVID-19] Onset: 12-16-2019 Resolved: 09-19-2023 01-22-2020 Episodic Results Test Name Value Interpretation Reference Range Facility Basic Metabolic Profon 05-03 Anion gap [Moles/Vol] 11 mmol/L Normal 10-30 [facility] Comment on above: Performed By: #### C REMI, BMP #### [facility] [address] [place] [address] Dye Expert: Anuj Palacio MD BUN/CRE Ratio 23 High 11-02 [facility] Comment on above: Performed By: #### C REMI, BMP #### [facility] [address] [place] [address] Dye Expert: Anuj Palacio MD Calcium [Mass/Vol] 9.1 mg/dL Normal 8.6-10.4 [facility] Comment on above: Performed By: #### C BC, BMP #### [facility] [address] [place] [address] Dye Expert: Anuj Palacio MD Chloride [Moles/Vol] 102 mmol/L Normal 98-107 [facility] Comment on above: Performed By: #### C BC, BMP #### [facility] [address] [place] [address] Dye Expert: Anuj Palacio MD CO2 [Moles/Vol] 27 mmol/L Normal 20-31 [facility] Comment on above: Performed By: #### C REMI, BMP #### [facility] [address] [place] [address] Dye Expert: Anuj Palacio MD Creatinine [Mass/Vol] 0.78 mg/dL Normal 0.70-1.20 [facility] Comment on above: Performed By: #### C REMI, BMP #### [facility] [address] [place] [address] Dye Expert: Anuj Palacio MD GFR/1.73 sq M.predicted among non-blacks MDRD (S/P/Bld) [Vol rate/Area] mL/min/{1.73_m2} Normal >60 [facility] Comment on above: Result Comment: These results [...] Performed By: #### C BC, BMP #### [facility] [address] [place] [address] Dye Expert: Anuj Palacio MD Glucose [Mass/Vol] 119 mg/dL High 70-99 [facility] Comment on above: Performed By: #### C BC, BMP #### [facility] [address] [place], [place] [id number] Dye Expert: Anuj Palacio MD Potassium [Moles/Vol] 3.9 mmol/L Normal 3.7-5.3 [facility] Comment on above: Performed By: #### C BC, BMP #### [facility] [address] [place], [place] [id number] Dye Expert: Anuj Palacio MD Sodium [Moles/Vol] 140 mmol/L Normal 135-144 [facility] Comment on above: Performed By: #### C BC, BMP #### [address] [place], [place] [id number] Dye Expert: Anuj Palacio MD Urea nitrogen [Mass/Vol] 18 mg/dL Normal 8-23 [facility] Comment on above: Performed By: #### C BC, BMP #### [address] [place], [place] [id number] Dye Expert: Anuj Palacio MD [facility] 05-03-2022 Erythrocyte distribution width (RBC) [Ratio] 13.5 % Normal 11.8-14.4 [facility] Comment on above: Performed By: #### C BC, BMP #### [address] [place], [place] [id number] Dye Expert: Anuj Palacio MD Hematocrit (Bld) [Volume fraction] 42.6 % Normal 40.7-50.3 [facility] Comment on above: Performed By: #### C BC, BMP #### [address] [place] [address] Dye Expert: Anuj Palacio MD Hemoglobin (Bld) [Mass/Vol] 13.6 g/dL Normal 13.0-17.0 [facility] Comment on above: Performed By: #### C BC, BMP #### [facility] [address] [place], [place] [id number] Dye Expert: Anuj Palacio MD MCH (RBC) [Entitic mass] 29.6 pg Normal 25.2-33.5 [facility] Comment on above: Performed By: #### C BC, BMP #### [facility] [address] [place], [place] [id number] Dye Expert: Anuj Palacio MD MCHC (RBC) [Mass/Vol] 31.9 g/dL Normal 28.4-34.8 [facility] Comment on above: Performed By: #### C BC, BMP #### [address] [place], [place] [id number] Dye Expert: Anuj Palacio MD MCV (RBC) [Entitic vol] 92.8 fL Normal 82.6-102.9 [facility] Comment on above: Performed By: #### C BC, BMP #### [address] [place], [place] [id number] Dye Expert: Anuj Palacio MD NRBC Automated 0.0 per 100 WBC Normal 0.0 [facility] Comment on above: Performed By: #### C BC, BMP #### [address] [place], [place] [id number] Dye Expert: Anuj Palacio MD Platelet mean volume (Bld) [Entitic vol] 10.4 fL Normal 8.1-13.5 [facility] Comment on above: Performed By: #### C BC, BMP #### [facility] [address] [place], [place] [id number] Dye Expert: Anuj Palacio MD Platelets (Bld) [#/Vol] 182 10*3/uL Normal 138-453 [facility] Comment on above: Performed By: #### C BC, BMP #### [facility] [address] [place], [place] [id number] Dye Expert: Anuj Palacio MD RBC (Bld) [#/Vol] 4.59 10*6/uL Normal 4.21-5.77 [facility] Comment on above: Performed By: #### Byron KHALIL, BMP #### [facility] [address] [place], [place] [id number] Dye Expert: Anuj Palacio MD WBC (Bld) [#/Vol] 6.0 10*3/uL Normal 3.5-11.3 [facility] Comment on above: Performed By: #### Byron KHALIL, BMP #### [facility] [address] [place], [place] [id number] Dye Expert: Anuj Palacio MD Coding Summaryon 10-25-2021 Coding Summary HTMLBase 64 WeectplsKNb7kMo+PGhl YWQ+CH5ZCBXhD58prJRy dW2UA1vPOJ6TINMGAQTA WN4IFU9fmIC4CGzrP3Rh biAv LqiboSRjJA26IKu9PVG1 qRgeZPkilP1fuGSbJ7o3 XgGvDT26kI18RAcvGINz IgM1KkTejihjxJOx L5ibFpUooQJlCgm+PHRh YmxlIHdpZHRoPScxMDAl KtTeoNgeYJ3eZz7fTXKs LWNvbGxhcHNlOiBj g5jfCNZcKOtrCB9psBpb Q9LrqLB2ZMNzf4k1Iu77 dHI+CUMbCPA2wRlvOAsm g643PmJzv8qtXCZ8 rNAeNIahYBX6M07ff4K6 UJBwWPSsAKT7yOD3eM0e iZxgwnyrN1NgdZPlKrN4 BAA0iAXjgU4vjYie eekpfS6uNnh+K03QKE5C CGKKWI1VPcr0Z0FnDgde dHI+RY79XTUwVE06xBZw xSKvf5ohlId7FfPa KQHvSIT4uIdhHRajl0Hp RLWqZ60chMYmv9F3FEDc fWbwhHCbSiPlrWD5oW8n IJjcvtxly6imhqqh Mjhsm0rcop71lS13U93i IVjeFWIwULZ7ONEwJLEy eNymhr3qxR4bWr0+IDxj z4lxr9nqkUz4JjEn LGVptvKlkCvfSVS0q4Ma Sm52K1YxiShme6McIha5 mt28mGDsz3G0oXN2ABzi LZWrzA8rNMjyXnF7 XBLdSlQraJ57yYWfDSzi Wm6lxOdavJxoYX1nNVVh snxlZWBigY1mISLvvARk sKroZJ1oTFDahfvn l859WxFdERJ8FSUthKWz Z0DesC6bEkUxSYRbRFBv E5WsoTLfYJtwA876VKjz DgJ7MFYagzDpM5On LGIzhWnqXqP8o4M7Tx7D y8AcziyiFLC3HNjkYUF9 EiBwSqHcApS4T2RpTao8 VTKjlOwyFD6bP2Cb UEEssufpgknwyIH1RLIq QBMmfG34pZHgXQlkQs4v a4Y5o317SHCpINRklH76 Jo2hmGtdAMPvfCXX gC5saerss6oguefbKiAe FFRaOVd9GZl8ABZjiWpq HyYdPNA2ChK2VOQ2bYTr nN3agXznlbmgoK2y Oyc+X13evU5gBSH1RER8 ayysFLZlidSwYN21FZ65 Y2XvSntifPYfjLN+PGRp apAdmJhnRP0rYtHe w2qxz8WaDZxeF2PbLRCg VTjrVyk5WVBnPSE5vAS8 vO4mAVNjZSowl0P0kBO8 S1JdjzQdik8dg5kr DLSeQOhuY04ltKRca8S8 ZFUbkKR1RAJycRhkLoIi iN34Mwh+NTVccOgqf6Lk Wvmpv0bwr3xhpAz1 IjMwJSIgdmFsaWduPSJ0 q1HwAn32T78pFTizWITw WGJyLREzZGFrhVftsx8j nX5cHr9+PGNvbCB3 aOF0aE9cMQPfWyR5JClu Y761KcHyzVMoMevzg9vc j8ybdPs6KyUtBNZldxZt xVozOJF6d5JpYu82 Y60oKUbdVSQgBIZuOFTj XDThqNfrgt7pmE7uMh4+ YN9od4spmu91cR58sVU+ QMWkPLF8fPmkCBul CLXxaO7rMQxsLcP9MTSr YnFakT54lEPjYKtvKq6c wGiqtOdiVA5jSHKbfzaj y508XdWhc5kgUGAq hAQuPHskUDK1H04qi2B1 YUYuHHJnMDG7rZR5sP1f bGlnbjogbGVmdDsgdmVy qGigKZscKJdxR792 IHRvcDsnPlBhdGllbnQg VsReDEk4H5PoKnj8MJAw eAdrSX0amESyQMiwYh0p eGtbjRxsDV8yJNCz texlx478PrRqk9wjGCNh sKAzLZokIPB0O42ho7M9 ZTVoQBWpKKU5aJS1oE3u bGlnbjogbGVmdDsg fvKcwGfdBLbjRMlzU132 IHRvcDsnPkJpcnRoIERh iXT7RY61OO43iUBrg3E8 gFD7J4NhMTAhrlla vgjuaSF9PAItMFXfgE10 Ao9ddQbcGm2tATSgRPN4 AALwbZExJ4UhxV6qOhJc ERNiHWNtK6VirFCp PZnrB304MZymXwD5VYJg vcKfQ6DlZIVtkNlcVmS5 x7W6Ca6XN4F3YQ21WM00 uJCih9C2tVM9W5Zm KOLuzollulikmDK2KXEl NGYhnG09Ho5jtWbgZi5b AABgKEK5NWDogHQaZ6Rf lI3cPgAuALIhJIHu D0GztVGxNPwwY989EFav XtV9UKGewdJhZ3UpUBRf gVfiArI5o5D8Xm5OHKm2 VY57PY77cUKat2S0 wQQ8Z6KoHRFoemehaivm eQJ4OHNiAICvzO99My5p mFczCu4dZFBvYSB3IPZg mHRlC8EpkH2xLrYn XGLhHCTlW1AaeBVwIBzv S720BVxcBnO6DXKeqbAm X2JqJUSyhUpiKjW4b9T2 Xq8ITJOzXX48AUT8 hQA2QN29KM42G5PuWsdr dGFibGU+PHRhYmxlIHdp ZHRoPScxMDAlJyBzdHls YX5jCw1gFRMeHRSa rHywbECvWiKex7ufDLRp HRhgCY1vaGhcS5YfvLB3 ZDLcx5x3Lh21R74rZ9Gw dXA+LJUmmME1eEL4 aI2eVmOiEgD0VNvgP108 FoObaGUxJihhw1cgh9jt aYk4QzJ3JQPcgwMjgUyx LRS0x5QoZw73A28r IHdpZHRoPSIxNSUiIHZh jHqazi7kaL7sVv5+PGNv pJU5aEF3fT8qJrYgLdD8 XKldL822SbGhnWNu Qmsis6mbl5ojcKq8RmFb EHHpchQasOslTMD3v6Zj Sl82O5CrqCwxl5KgPsw9 hy55pRGql9E0qEU7 U8PbMUJlwmpmoVDvwWtw BY4fQOXnvxmgEOOlsZ6x SPOfY0x5FaVvJdX0XQnb W2IzkkB5OZCddTYn PPzgXKI7W22ua5L5QDOj JXWdQNO1dSH1qM3kpGdw bjogbGVmdDsgdmVydGlj GYalBWjvR949VJIg tVnbBXLumG9aAMUbdEMr uVxkXA9qJHJiwwfvNcxL QkVSTElORywgTEFXUkVO D6GgLJzqaSO+PHRk STR2gYwhRFnrFIIwvY9p NKClV2h1EyQuAeQ1WLol D8MjMEHjumodVl34eG5n EoWwXoU3KJlfN8Rn stI0UQYcaEHrSUrgMEY0 E82so2S7KQMgXMFsDAZ1 wXA5zM9szWryunjjdSQa dDsgdmVydGljYWwt LOmuH490FNSosZanQfC7 JaJjZxG8CNy2J6JwHoj3 PXRliAjmPZ5hxMPgHVka Nu4laLiybZzcVL0k VOMometdYFXscR3bWSHj zDVrpNvrOO1jTTVqbmri v778NbDlCYY8KWXccDLk R2SxgM3pKsYfOYBm RUXoB2IivPJnUYmcL630 ISgaJiF6HJKuzcCnK6Cf WJHpdAntIeB4u9A3Nx19 MyBZZWFyczwvdGQ+ EILvAMT6iXtcIOjlHAHv sK6zWTKmP4l2GeBvKnF7 NLhhB9OnHAHodfbmYb23 vS8uUvJsPsF5AFew G9OgciB0AXGmbYFfORpv OHK7Y06ba5D4ROTtFHTu XLM7tXG5xB2ztDucajew bGVmdDsgdmVydGlj SMykPZlnB833TLCdlXyj Zz8RPTJ0A5ShVia9WZMn sSkfDY6xfUQlFEurGg7y xOnhlHfyTW8iLAOy ejcbBSNgaA5bDCHzsFXe bVxzYK5kIXZrxrefa842 MaLzEUJ8NWAvcBQcH1Vf xA1rPdYyDCSfZGIc B0HooMTaBQyrI667XQtt VrJ3ABUuuxEhC7VyWOTq iByfBnA0d0P7Lx6RVTtk dGQ+FI58gt99U8Hg AdfuSfm8BIElIGH5fCV9 lG4yFPZfBIdwx9W9wHO7 C8LstdHueb7eg9zgDKHz QVhjL49ogVLmg1I7 WEZycBS8XYMymExtJfMe aE52Qqh+FBWhsZgwf9Ty Rzwka7glz7uhqXn1HoLo JSIgdmFsaWduPSJ0 f6ViZw52C65aBZyqLHVz QWCsHUEqSGFleSignv7s gH1vUz8+GPZixXL6dFI3 vL0aLgKzUkL6MOvd G786SfRytQQwBthob8ul n2yzmZm7TwFlMPCdnkMv fSkuFLJ3l2KeNw42N0Mj sVyhe2RrHyz5vd71 kRVap7Q6eJZ1B4AaSLWk qzphcOVfhGrvHE0tOZOd drmhAKMogS3hPQIkP2z9 VeUpCqF4UKryR7Pk duK0OXMseJAnVMHwhYPJ mI0furord4sctxhhXrIq GQFrYAg6LIc6MYEuiRij WoWqVAP0NjY7LJE1 zBMuhZ0zkQitjkvyeP5f Oyc+JId3r1vtrMVfHX7m wHX7WT58NA11pOZwg9F5 wDM4D9WrWQCawgtl olfaeGT2VODxSMCbgR59 Ql3uvJjxXk2fDUWvINE1 WJVraVOuA2RaqN2bGwCo LEVnBCZqG1CxmXZz UWqyO507QSwfYbN2RQZu bmNiU1AaFFUyuYzdUxC4 s3Q0Oc7FPF50HV59HK60 tBIiz8U2cFH4R9Qw VAHasomdxhlwzHX0ILMv SFPjdB82Sz1htIwyQc1o ZCUhSEV2ULGjdLDjF1To oD6mDhPqHMYxBLHz Z7JzaMVdBMufJ222SHsr MoU4PBKmtzYcM2StPOMm vBzsJdD9l5A7Lt8XHi99 CF63ZU69fJAuh8Y9 eCM6S8KvKQUaoivzspst qOJ2ZNVzGCHrnU65Pm1f dLaiCc5iCLPyLGA0NMTn sGHzG3JtkR9oHfVf MWSoMHZkA6QyfKCoEAfr J330TSzcOvJ8BCStnrPe H9NyEDGdpVcaIvZ2u4A4 Ja2MIEzzjig3N1Ic PjwvdHI+IM62HRHcTN52 bGXmtCWog3ohxDn8HmAp WPHgMAO2hThvRAqqa1Gc YSAzC43iqREdd8Y7 IGN (more content not included)... [facility] Coding Summaryon 10-04-2021 Coding Summary HTMLBase 64 PhunqqeoCJz7aXe+PGhl YWQ+SX5NGNPgU56vlMFa yJ1DZ7sUKG9XPSKOVFBI UC7XVV4qjLR0FPfvF5Rf biAv UogiwOPkLD52NEg4YLQ3 eBsfCBuqrV2usPIiX5g6 AsTvYA26xP70JCqiBWHg LzV5NjBrklummPJt V4axOpLgpYHzUhd+PHRh YmxlIHdpZHRoPScxMDAl JbGgmGlvOL5lSk8kRRUr LWNvbGxhcHNlOiBj o4caQMBxJFehXC3ayVrq P1SsdCI1KCCmu7c5Ph31 dHI+QOUrTPB8iGcmKVri y547GlAfq6kgIOI3 xDBiSVmoAGE9K32fr1J1 WDNbLWSrZNT8cBH7nN8w tLzjcatoS1BzhJPoAmN2 FQR1qVEgsW8ypGbs mpecdC2zEio+S26KBF7Q SVVTJM1NSxq9P5NpMhro dHI+QP23WZEhCA87dNNt nRCqx1kqmAq7TlKy JVYuADT0bXzeQQpmn1Au WPJfG95ouOSfo8H1EEHu iDqkvDYmUqJkiAA0jE6k LGpnzcpba1bsmlzy Vdtkw2wxre83pU14H10b JRsmEYVjQTL4ZVWeFPCo hNaayx3ilL2fCn8+IDxj h2ovq1tocZu6NrPu PLXilzSsgBypPJI8t3Gy Kj74R1GrvKgnf3UoMem7 zb69jIKyb2W6rDR4DCrw QPBolA7nFOvzIcP5 OMRiXyUqvG01pAYiATmv Fp9smBwmxHuhBS4aVXGz jemmEGTrvR6sTIXhaRJe aYgtBZ1jGTMrzbjr g477BoNvZAP3WZFcbBWy V8OweH3yQjZzXWQfOOTz S2FskZUvXZykF777XQwn LzJ8YUOappQuD8Ho OPBhpYjzIyQ2y5Q2Hs3Y a7VzdxyqETZ3PLdvKMZ1 QdIjCtNyXyL7W2IrPxq9 JPQnjGyuSY3pZ8Gj ZDHqrvuxpequmZS6WSYg XGPekA07jXVpAYxhXj0z n3A1u758BSDaHQSjoC23 Ij2mdKsuIDHlbTLQ xF9qnhccf4qcgpsrEmRu FFPhXPl1UTg5GJTcxAvt CiHqCLO7YiH5QVH9lMMs bA4mkRmubhymeT6v Oyc+X54jqF0qNWC0DSG1 yvoaJPEwfoPlJS07ON89 L0AwZpjewCTpwAZ+PGRp bbTuvZlbTH8jRkVd d0nod2YeAVmzR0BrQYHl JZcfAlw7TMEuGDR1pNI2 nX9fWDNhDIxkc9R8lWQ5 D6YlnhKudq3qu4ct KTObZGguA18liXKlq8G9 DZLbpOP0NYTsxKqhBpZs qG02Lhf+QQWorHgpm0Oh Pnmwr4twe3kzrNn2 IjMwJSIgdmFsaWduPSJ0 b7AzGi68P22qHDgyJEDh ZZRhAIKkFHUhfCuusv9u oE8fAp6+PGNvbCB3 cAK0yF5hRSMxHeN7HItg E080FbAstLCmRfsnp8qw t8seoOo9WaXqZHQfupQg bWybQQZ3t6FbDq88 J30gCFefXUJoQOZkQFIx DROkdEznot5bmI3dYe2+ RF7kd7fple98eH62tZR+ WVKrRXZ8aNqpNYim ZUIfnI8oAJleOnU3GAOf JjIvgS03zLOzLXteCv9x rSqnxXnhLW4kSOEtfzhf q398HrIin1orYJXu pADbTZteZBE8B17wo8K3 VAEySJHvOUL1mOF6pO3m bGlnbjogbGVmdDsgdmVy sRzvGTsoIQicO117 IHRvcDsnPlBhdGllbnQg BuTuYPf5G4TlEzb3DDNo hFloVL8gfZMxBXifOc7c mCnixWhcVQ6gPBDq oejgz535UbXmk8tuBIFt gSUpNMewOIN5J39yn4E6 OZFaKKJnKDF3nBS9tM4v bGlnbjogbGVmdDsg qrBquHgzKShqTJhiT599 IHRvcDsnPkJpcnRoIERh kKV5EB81OS19oSDtp8F3 uYF6T6IsYCZmajjb kpajvEW7UUPoUXXdkK09 Fl2foMyrIa8xBNJzOYP4 CXNluGKgH1WrpE9xXnOf VUBzCRShN1SxfSYa SFlqQ800FUptVnR0DMIo hoLdJ9IrPFTqvMmvTbF5 b0Q4Ic0DK7X9XS73QW72 sTKfb6X9vZQ0T8Qy WLGtfwaxqpfsjXP4GIUu TJWdqO22Qi7ihDgbVh2f HTOkJEJ4OJYvgHDfD0Bn vK0iEsDzEGLqIPKs L0NbdGBdVYtrC245PXyk XoM8UYZwizYkU7LhYGWn sVvzWlB3d7T3Ao9IEBi3 GE50XD17fTMsf6T7 cJP8P2ZlTHDpdocjunzk rNB1IQJoVQDomF13Hq7z dTttEk9rKNIaQRM3WVEs kTBaI4KweO7zIbBy WTAsULLsD4WzoYYnJVda P224DFlvTvD4KDBcliDi U0JdYWJvbNfbBqR3y9N4 Io4MGQLbNM73RXH1 qFD2YJ19DM95I6NyHnih dGFibGU+PHRhYmxlIHdp ZHRoPScxMDAlJyBzdHls GP5xKd4mBJPfVQSg cZdlwTNkRaXem5nmHDZa USfaLV4mgEgkE7XogLK9 IPTre0v6Wa46D80fP7Ml dXA+UJSliAN8pHC6 dU2nOrAgPbF2QLpuR957 XlNryLHcVqgaz6cmd6ih iZf1KfQ4OENjdaTaqCwb YND2o6XiOx64W45k IHdpZHRoPSIxNSUiIHZh mPzabk3ejJ8gXp6+PGNv kMM1mCK9rA4uTgZzXnJ5 PFfbL445HjXaoYOx Kuttn9xjh6dpnLc3SdNq GXTjybDpiKveJUK7m2Fu Wm36A7SnyBphf7XiZaf3 tj30rQLdy3W5wDZ6 Z6DkPNYrivgqsFKaeSku AT3pQOCcmdfeKMGzhS0h JHEeK2s6VoYkXfU1BFks D7UrkpX7PRVzpJRb AUdzPAI9O54qy6F0BMVh BNEgOWG1gBB6tA7ehPkk bjogbGVmdDsgdmVydGlj LDghXMxhC827XHQz jMagOOXjnI1aHBEmzAGk fZqqVN6eYUKvesgiCzbE QkVSTElORywgTEFXUkVO V6OwJInzqIN+PHRk NZC9nCgePWsmABSnuP5q EOHnK7i5EmXaIuD9DXvo L3WeASPcwdqzRg33pK5h CmMkZyI5DWetO2Nq viY3CLXfdWNeHRejUWB4 U28tg0I4KJDbQERaIUX7 uHA7pF8bxVgiewoccUQp dDsgdmVydGljYWwt BOneI882WUBqwEdvFxO4 MyFkQyO2PEi6E0OnPgl3 UXCxpMetHV0rgMEoNJjj Xq8jpYhggDsiSL8h QQCyqcnaJDQfiS5vMPCf wYKtdCmdCW0zJVNyzzim f306TnSkJTH2AGXnpIAh U8BhjF9vCmChKGMv NLUwG9IjwEJqESqbA154 PJzcSkQ2GPJnllZsO8Wj SJSnzLccRnU5e7F9So82 MyBZZWFyczwvdGQ+ VURaJNG0jQdlDYiiWIGf iS1uGPEtJ5z1FrLfMlM1 EEgeB1CrPJDkfzueBi38 wD5jZxVcFvX9IDrr B7RjycW5ZFQvcEWqLJew DRY2J31un6A9SWFlSIFs MIQ8sFX3sS5goBmqxuhs bGVmdDsgdmVydGlj MScrWIhtK309RRWihOfk Cq2WCNE6W5LvDgp6SZZy xBegWW4epETpGBamXn3b uFcnhRddUT3uNHXl anryTKYzwV2kNYXgqLYi pWebRN0qYPIdwhjmw298 UzMaCLL6GTSbjMCkF1Ot iP9zUhRdZBPeIDEb T8RrvPCnBFusE847MEgm VnI3IROzktXfS6RqISDx iPvgCuW4g5G5Ax9EDyUv cnZhdGlvbjwvdGQ+ HH20br16V8MuFrbvBxl4 DKRhIYM7jWQ7wH1hVNAk IKcof2V7ySL2Q7EdvyHa dt2hg7xdRYYaWWov X89ucIOvx1L2JNRrkXJ0 RKOsqIocUoNktU63Wwf+ DTZcaIhjb9XxFljcj7oe k6fhqPy0RzMsJBUo mjVcyNzcLVK1r0DtCm69 X81yCXldHZNuAWKcNZHe BLUyrTrdln1cyS8tRj7+ AZRbgGR7xGQ2nB3e TtHwYkK6GEheE159KlTi oZNlMgvwe7erq4ztlXx6 IjIwJSIgdmFsaWduPSJ0 z2MuQl91U9CpaYys v2CbKty4gd23rGAdq6B2 sJM7T1CqEZLftbexsCUo aQgxMY1fTVUfsbybJLRn yT3cWVAfC2d9OqZr NmD2WDqyK0CjpsQ2OXCp yWEaCDQpyCJUtO0erzcd l3tgnhqyHdWiRWYzLFv7 HRc0MFFdcNkyVmKo INR0OvR8CTP9lKHnoM5r cXyfjfgmsJ6vYfu+UGh5 u9avzHBaFJ6icZQ8VH81 DU68vYHtt8P9mWR5 E5CwCEFrwaxyhetrhHP8 XOHnYIVjbT62Xl3khPjm Ta4vJLWzALL2UDWfiHKv S9QosT5tCzHbWRPy AJGrK5EtmQIvTIhzZ863 QOzcUfW3GUHrklOsJ3Eh YAIbkQcmCkE1c9X0Yw7V IU24QK74IZ23yNNo z2S6rVP3F3QjNNMhdilu gukpaEQ7ZKRvWITrtD48 Mb1jyHihZf6nYGDlNPC9 JACqnVKiS4QdlR0h OoMjNVVcKWSkV8DumNGt GLibF841HFauJkD8TJGr toFoH1LqUZSzsQtxHvK4 l8O9Pn3SKv35KB70 NN43yPGfn2N6vKI6V1Rd LIXfjqdglwhahFQ5NPQn GSCwuM14Ma1nzRywBa4d OSTeHLK6EIDshISe U7CieA1jUcVtWDNwCWSi T0BxbMNbFRssJ172GGcd UsJ7PLKriiVqQ6XmWEUe cJgyBdV6m2Z8Ut6Z PSgnzqp5J8FhQzyvgDO+ AG49OGKsMV96nQCqhMMw g3dulCh5IqNjJWFaFJT2 oDgeZCnli0KdFCHn Y29 (more content not included)... [facility] Consent Formson 09-23-2021 Consent Forms [id number] #1.00OTGTIFF [facility] Consent Formson 09-20-2021 Consent Forms [id number] #1.00OTGTIFF [facility] MAGR Postoperative Recordon 09-20-2021 MAGR Postoperative Record MAGR Phase II Record Summary Primary Physician: DAVID AWAD DO Finalized Date/Time: 09/20/21 10:05:40 Pt. Name: ZAINA WINTERS /Sex: 1950 MALE Med Rec #: [id number] Physician: DAVID AWAD DO Financial #: [id number] Pt. Type: O Room/Bed: 229/1 Admit/Disch: 09/17/21 [...] Signed By: Vianca Celaya RN 09/20/21 10:05 [facility] Outside Recordson 09-20-2021 Outside Records [id number] [facility] Provider Orders [id number] [facility] [id number] [facility] Tele[facility]pson Telemetry Strips [id number] [facility] Electronic Messagingon 09-19 Electronic Messaging --- --- --- --- --- --- --- --- --- From: Directtest ([email or web address]), Directtest To: ZAINA WINTERS Sent: 09/19/21 04:18:10 AM EDT Subject: Discharge Summary Ready to View A summary regarding your recent visit is available in the Documents section of your Health Record. Normal [facility] .Auto Diff 09-18-2021 Auto [place] % 9 % Normal 1-12 [facility] Comment on above: Performed By: #### 1 [id number], [id number], [id number] #### [facility] (DEFAULT) [address] [place] [address] Baso Abs# 0.0 x10 Normal 0.0-0.2 [facility] Comment on above: Performed By: #### 1 [id number], [id number], [id number] #### [facility] (DEFAULT) [address] [place] [address] 45444 Basophils/100 WBC (Bld) 0.0 % Low 0.2-2.0 [facility] Comment on above: Performed By: #### 1 [id number], [id number], [id number] #### [facility] (DEFAULT) [address] [place] [address] 52844 Eos Abs# 0.0 x10 Normal 0.0-0.4 [facility] Comment on above: Performed By: #### 1 [id number], [id number], [id number] #### [facility] (DEFAULT) [address] [place] [address] 02457 Eosinophils/100 WBC (Bld) 0.0 % Low 0.9-4.0 [facility] Comment on above: Performed By: #### 1 [id number], [id number], [id number] #### [facility] (DEFAULT) [address] [place] [address] 38938 Lymph Abs# 1.2 x10 Low 1.3-2.9 [facility] Comment on above: Performed By: #### 1 [id number], [id number], [id number] #### [facility] (DEFAULT) [address] [place] [address] 83793 Lymphocytes/100 WBC (Bld) 9 % Low 14-48 [facility] Comment on above: Performed By: #### 1 [id number], [id number], 1359558 #### [facility] (DEFAULT) [address] [place] [address] [place] Abs# 1.3 x10 High 0.0-0.8 [facility] Comment on above: Performed By: #### 1 [id number], [id number], [id number] #### [facility] (DEFAULT) [address] [place] [address] Neut Abs# 11.6 x10 High 1.5-9.2 [facility] Comment on above: Performed By: #### 1 [id number], [id number], 6410986 #### [facility] (DEFAULT) [address] [place] [address] Neutrophils/100 WBC (Bld) 82 % Normal 44-88 [facility] Comment on above: Performed By: #### 1 [id number], [id number], 7836457 #### [facility] (DEFAULT) [address] [place] [address] CBC w/ Auto Diffon 2 Erythrocyte distribution width (RBC) [Ratio] 14.0 % Normal 11.5-15.0 [facility] Comment on above: Performed By: #### 1 [id number], [id number], [id number] #### [facility] (DEFAULT) [address] [place] [address] Hematocrit (Bld) [Volume fraction] 36.8 % Normal 34.8-51.9 [facility] Comment on above: Performed By: #### 1 1179738, [id number], 3393801 #### [facility] (DEFAULT) [address] [place] [address] Hemoglobin (Bld) [Mass/Vol] 11.9 g/dL Normal 11.8-17.7 [facility] Comment on above: Performed By: #### 1 [id number], [id number], 9934864 #### [facility] (DEFAULT) [address] [place] [address] Instr WBC 14.2 x10 Invalid Interpretation Code [facility] Comment on above: Performed By: #### 1 [id number], [id number], [id number] #### [facility] (DEFAULT) [address] [place] [address] Man Diff? Auto Normal [facility] Comment on above: Performed By: #### 1 [id number], [id number], [id number] #### [facility] (DEFAULT) [address] [place] [address] MCH (RBC) [Entitic mass] 30 pg Normal 24-34 [facility] Comment on above: Performed By: #### 1 [id number], [id number], 6185218 #### [facility] (DEFAULT) [address] [place] [address] MCHC (RBC) [Mass/Vol] 32 g/dL Normal 26-37 [facility] Comment on above: Performed By: #### 1 1094325, [id number], 3820083 #### [facility] (DEFAULT) [address] [place] [address] MCV (RBC) [Entitic vol] 94 fL Normal 81-100 [facility] Comment on above: Performed By: #### 1 [id number], [id number], 4897049 #### [facility] (DEFAULT) [address] [place] [address] Platelet 181 x10 Normal 138-427 [facility] Comment on above: Performed By: #### 1 [id number], [id number], 2922574 #### [facility] (DEFAULT) [address] [place] [address] Platelet mean volume (Bld) [Entitic vol] 10.4 fL High 6.3-10.2 [facility] Comment on above: Performed By: #### 1 3339045, [id number], 8431322 #### [facility] (DEFAULT) [address] [place] [address] RBC 3.92 x10 Normal 3.70-5.30 [facility] Comment on above: Performed By: #### 1 [id number], [id number], [id number] #### [facility] (DEFAULT) [address] [place] [address] 12258 WBC 14.2 x10 High 3.5-10.5 [facility] Comment on above: Performed By: #### 1 5355418, [id number], 0934099 #### [facility] (DEFAULT) [address] [place] [address] Electrolyte Panel Standardon 09-18-2021 Anion gap [Moles/Vol] 12.0 mmol/L Normal 5.0-19.0 [facility] Comment on above: Performed By: #### 1 [id number], [id number], 4461421 #### [facility] (DEFAULT) [address] [place] [address] 52168 Chloride [Moles/Vol] 98 mmol/L Low 101-111 [facility] Comment on above: Performed By: #### 1 [id number], [id number], 8174495 #### [facility] (DEFAULT) [address] [place] [address] 13236 CO2 [Moles/Vol] 28 mmol/L Normal 21-32 [facility] Comment on above: Performed By: #### 1 4582363, [id number], 3867866 #### [facility] (DEFAULT) [address] [place] [address] 42321 Potassium [Moles/Vol] 3.8 mmol/L Normal 3.6-5.1 [facility] Comment on above: Performed By: #### 1 7037120, [id number], 1499113 #### [facility] (DEFAULT) [address] [place] [address] 95651 Sodium [Moles/Vol] 134.0 mmol/L Low 136.0-144.0 [facility] Comment on above: Performed By: #### 1 4082337, [id number], 8256117 #### [facility] (DEFAULT) [address] [place] [address] Inpatient Patient Summaryon 09-18-2021 Inpatient Patient Summary [address] [address] Patient Discharge Instructions Name: ZAINA WINTERS : 1950 Patient Address: [address] [place], [place] [address] [address] Primary Care Provider: Name: Jeannine Hurley After you are discharged if you find you have any questions, please, call [phone] ext [phone] to speak to a nurse. [...] alcohol and/or drug addiction problems; contact the [facility] 05/09 Crisis Hotline -Text 4HMMP to 568174. If you received any narcotics, sedation, or [...] business decisions or sign any legal documents [facility] would like to thank you for allowing us to assist you with your healthcare needs. The following includes patient education materials and information regarding your injury/illness. ZAINA WINTERS has been given the following list of follow-up instructions, prescriptions, and patient education materials: Follow-up Instructions With: Address: When: Marina Redd [address] [place] [address], [address] [place], [place] [address] Business (1) 10/01/2021 11:00 AM Medications During [...] to tolerance (more content not included)... Normal [facility] Pharmacy Noteon 09-18-2021 Pharmacy Note I [...] [Verified on: 09/18/2021 10:36 EDT] Emiliano Montgomery [facility] Progress Note - Nurseon Progress Note - Nurse Discharged to home. Prescriptions and instructions reviewed with and given to pt. He verbalized understanding. Taken to awaiting vehicle via wheelchair. All belongings sent with pt. [Electronically Signed on: 09/29/2021 14:49 EDT] Mildred David RN [Verified on: 09/29/2021 14:49 EDT] Mildred David RN [facility] Progress Note - Nurse POC discussed with pt. Educated on safety and ADL care once discharge home. He verbalized understanding [Electronically Signed on: 09/29/2021 14:49 EDT] Mildred David RN [Verified on: 09/29/2021 14:49 EDT] Mildred David RN [facility] Anesthesia Noteon 09-17-2021 Anesthesia Note Patient: ZAINA WINTERS Age: 70 years Sex: MALE : 1950 Associated Diagnoses: None Author: Eugene Castaneda MD Postoperative Information Post Operative Note: Operative Day. Anesthetic utilized: General. 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 Aftercare following left knee joint replacement surgery / SNOMED CT 225565706 / Confirmed Resolved: COVID-19 / SNOMED CT 8397841690 Resolved: Diabetes / SNOMED CT 200675975 Physical Examination VS/Measurements Vital Signs (last 24 hrs) Last Charted Heart Rate Monitored 88 bpm (SEP 17 14:) Resp Rate 1 br/min (SEP 17:) SBP 118 mmHg (SEP 17 14:00) DBP [...] on: 09/17/2021 14:12 EDT] Eugene Castaneda MD [facility] Anesthesia Note Patient: ZAINA WINTERS Age: 70 [...] All Problems Atrial fibrillation / SNOMED CT 03140141 / Confirmed FH: hypertension / SNOMED CT 660632300 / Confirmed History of post-polio syndrome / SNOMED CT 982341943 / Confirmed Aftercare following left knee joint replacement surgery / SNOMED CT 329340546 / Confirmed Resolved: COVID-19 / SNOMED CT 0778131067 Resolved: Diabetes / SNOMED CT 945394240 Histories Family History: CA - Cancer of colon Grandparent Heart attack Mother Grandparent Tobacco user Mother Father Brother Procedure history: Arthroplasty of knee using cement ([id number]) on 03/02/2021 at 70 Years. Back ([id number]). Comments: 02/04/2021 10:08 Oliva Van RN surgery [...] Oriented. Review / Management Laboratory Results Plan [place] [employer]#(A SA) physical status classification: Class III. Anesthetic Preoperative Plan Anesthesia: General. , Regional adductor canal block for post op pain control per surgeon request. Anesthetic plan, risks, benefits, and alternatives discussed with the patient and/or family. Patient verbalized understanding. [Electronically Signed on: 09/17/2021 11:19 EDT] Eugene Castaneda MD [Verified on: 09/17/2021 11:19 EDT] Eugene Castaneda MD [facility] MAGR Intraoperative Recordon 09-17-2021 MAGR Intraoperative Record MAGR Intra-Op Record Summary Primary Physician: DAVID AWAD DO Finalized Date/Time: 09/17/21 14:17:42 Pt. Name: SINGH ZAINA Morales /Sex: 1950 MALE Med Rec #: [id number] Physician: DAVID AWAD DO Financial #: [id number] Pt. Type: D Room/Bed: [place] Admit/Disch: 09/17/21 08:03:00 - Institution: Case [...] Role Performed Surgeon - Primary Anesthesiologist of Fire Fighter Record Time In 09/17/21 10:35:00 09/17/21 10:17:00 09/17/21 10:17:00 Time Out 09/17/21 13:32:00 09/17/21 14:10:00 09/17/21 14:10:00 Procedure Arthroplasty Knee Arthroplasty Knee Arthroplasty Knee Total(Right, Knee) Total(Right, Knee) Total(Right, Knee) Last Modified By: Zhanna Urrutia RN, Erica RN Baumer, Erica RN 09/17/21 14:17:37 09/17/21 14:17:37 09/17/21 14:17:37 Entry 4 Entry 5 Entry 6 Case Attendee Sue Rodriguez CST, Kelly CST Meyer PA-C, Marina Naidu Role Performed Media Services Director Scrub Personnel [facility] Emergency Medicine Medical Director Time In 09/17/21 10:17:00 09/17/21 10:17:00 09/17/21 [...] By Zhanna Urrutia RN Scrub 10% Povidone-Iodine [place] Prep Area (more content not included)... [facility] MAGR Intraoperative Record MAGR Intra-Op Record Summary Primary Physician: Finalized Date/Time: 09/17/21 10:39:41 Pt. Name: ZAINA WINTERS D.O.B./Sex: 1950 MALE Med Rec #: [id number] Physician: DAVID AWAD DO Financial #: [id number] Pt. Type: [place] Room/Bed: [facility]/1 Admit/Disch: 09/17/21 08:03:00 - Institution: Case Times [...] RN, Brayan Altamirano Role Performed Anesthesiologist of Fire Fighter Fire Fighter Record Time In 09/17/21 09:55:00 09/17/21 09:55:00 [...] Signatures Signed By (more content not included)... [facility] MAGR PACU Record Summary Primary Physician: DAVID AWAD DO Finalized Date/Time: 09/17/21 15:19:58 Pt. Name: ZAINA WINTERS/Sex: 1950 MALE Med Rec #: [id number] Physician: DAVID AWAD DO Financial #: [id number] Pt. Type: D Room/Bed: 229/1 Admit/Disch: 09/17/21 08:03:00 - Institution: PACU Case Times MAGR Entry 1 In PACU I 09/17/21 14:10:00 Discharge from PACU 09/17/21 15:15:00 I Last Modified By: Vianca Celaya RN 09/17/21 15:19:57 Finalized By: Vianca Celaya RN Document Signatures Signed By: Vianca Celaya RN 09/17/21 15:19 [facility] 09-17-2021 MAGR Preoperative Record MAGR Pre-Op Record Summary Primary Physician: DAVID AWAD DO Finalized Date/Time: 09/17/21 10:43:23 Pt. Name: ZAINA WINTERS/Sex: 1950 MALE Med Rec #: [id number] Physician: DAVID AWAD DO Financial #: [id number] Pt. Type: D Room/Bed: 229/1 Admit/Disch: 09/17/21 [...] consent correct. General Comments: Pt arrives to [facility] ambulatory. Pt denies CP, cold/flu/COVID like symptoms. Pt denies, DM, pacer/defib, POOL. Finalized By: Vianca Celaya RN Document Signatures Signed By: Vianca Celaya RN 09/17/21 10:43 [facility] Nutrition Noteon 09-17-2021 Nutrition Note Pt admitted [...] with in house available Ensure Compact BID. [facility] Progress Note - Nurseon Progress Note - Nurse IV fluids stopped for good PO intake at this time [Electronically Signed on: 09/24/2021 15:45 EDT] Raquel Duvall RN [Verified on: 09/24/2021 15:45 EDT] Raquel Duvall RN [facility] XR Knee One or Two Views Rig [...] MD 09/17/21 4:07 pm Technologist: Abilio AMIN [facility] Progress Note - Nurseon Progress Note - Nurse Pre-op phone call complete. Reviewed arrival time of 0830 on Monday09/17/2021 and pre-op instructions with pt. Pt voiced understanding and is without further questions or concerns at this time. [Electronically Signed on: 09/16/2021 09:25 EDT] Brayan Roach RN [Verified on: 09/16/2021 09:25 EDT] Brayan Roach RN [facility] 2019 Novel Coronavirus (CoVI D-19), JULISSA on 09-14-2021 SARS-CoV-2 (COVID-19) RNA JULISSA+probe Ql (Unsp spec) Not detected Invalid Interpretation Code Not Detected [facility] Comment on above: Order Comment: [id number] Result Comment: This nucleic acid amplification test was developed and its performance characteristics determined by [employer]. Nucleic acid amplification tests include RT- PCR [...] detected) result in this assay. Performed At: [address] [id number] Zay Landa PhD Ph:[phone] Performed By: #### [id number] #### [facility] ([facility]) [address] [place] [address] Coding Summaryon 09-14-2021 Coding Summary [facility] LgpvfjnbKDu8zDm+PGhl YWQ+ZC0KNNRwH08nsBNa qB3LI4aJFA7XGEAIOCXW UI6WMV9yjVT7WDifP8Yh biAv QrklvDEvPH57ZTi5WSH3 kGclGQddfY1veDVeV5b9 TiAvDC39jA91VUsyPZGu PkS7PjCinrexlRRf T5nrPkElyNLqEmb+PHRh YmxlIHdpZHRoPScxMDAl BwFuuTsxGA0pSx0iVIQt LWNvbGxhcHNlOiBj f9qmIWAeEOblLP9bgEwm O7PdaPB2OKWsp0g7Qa61 dHI+NFOwZPQ4yTvuCTeq x630SsAkl0ceQZD2 eKLbIAlaETZ7T30tf6F4 SZBkVPUcDQO6rFL0uN9n uFnnonheA0DeuUQqXpZ3 BPE2bKAcsR8owVnh miympV3bSis+U06IIB2R GLUAJS1MDqi0G7FdUwwg dHI+PZ11ELFmEV33xDVb nVTky4yarLg9TnVb FRJuOVI1pRrdHVbsh7Ev UZTwG68tnBBlj9Y3FZXr mRxxeSDoXaDrdAK7jF8y LSmrdueeq7tdivpz Xcvya6iayz04bH32P92c PIkoLETzEGG6AXLmCETv cNuxsy2lgG8pGx9+IDxj g1jmg2xdfWg8GvNp QYHcpiFhfBjhBFB0d3Xh Yl69A8PbnEaja8ZdZkh6 la32cDCii3F7xPW4VBwv VHLzjM7sQGggExE3 HMNoDrSebP71pEDqUFup Jk5ffYbxzUuuCI9xQDRw ndsoNRLnfV2kISXskLBy cQrsFF8iGIZuasmk w406PmNhKCX3VMBsxRMb Q1ZtcL0oOfWnOHVoSZAn M6WqeWToBAstY299ZYej GlU0QBLcghAaK0Lo WNEpuZriJhX5j0S8Zw4H v4IblfhrQOG2CKsiPQK0 DkYoNpUySuH2L6KkNmg0 BRCfiPfbYI9oG5Zw LFKlhrbdlbkklUD6PKGh EXImcX08qSWfEMnzNf3l r5D7v033ZNMqHLPqjF94 Iq7xyLbpBTRbrJZV fH5ymunav3ebpfyzAwHr CEWtAQg9FGs2QCUqtCom ZjLqODG1MuC6LNS1xRKk uM5taYumizmfvU8s Oyc+G02vqR2cVUY1CCS8 uecuJRKolbUeUR79HV99 O8BmFssktUNmcNB+PGRp xnVdeSihHY9oPuEk l5bqx1TrGErhP4VgXFCv ATceCiu2AJYxZRI8uKH9 eF6oANSqYJaqi1D2yTR2 J9PdfoAxfw7ty7oy LCYkZFepI60fzKZlk9T4 FTZvtJT4HQTvtHsfAjLt mK74Qar+IEKafVgsz8Ls Flcjo6nlc4yrzCz4 IjMwJSIgdmFsaWduPSJ0 n6PfNz05T72sOTimJPRx URQsYZVnSMXxyClwsu0o kU1hNt4+PGNvbCB3 hFW3dN9wGPAiSnZ7BWee R326QmDihTPuSycdx6sc w0vfgRk9RjFzAISqprVb aBpaSNF1f8KwDp27 K69cMXozDOIbEQEkODZi IGWtkXkbns0dfW6vHe4+ RR1mq4belz25gC44mTD+ XBYvCAM5yLwsMItl JQOznY7sCFnfBcD7OKIl WmFszW64oOAwKKvbAg2x hFjgoHwuEH1qSJPpxyps h805NmAhw9bjGEDm tBXeETboXRY0S90vi3S0 CZAwWXZqARO3bIN5sY9f bGlnbjogbGVmdDsgdmVy iBqyMQckNBhqF992 IHRvcDsnPlBhdGllbnQg LmZaSGf5D3ZoRol5MYIq zAcvZP5ebBIsGGqtRk8k rPpiiWznZN7nWFQp zsail320FiOkl6zmGWDc fKFzQPhkTSQ0M52nt9B1 XVUkACKfHTS0wNV8nI4p bGlnbjogbGVmdDsg woQllXmbVEolPYrzN950 IHRvcDsnPkJpcnRoIERh eAQ7DX30VT97gRJmr2K0 gEA7C6HkEPFdcqka mccgpFZ6XVAkGYGdyD83 Cv0nvZasMp9jZFEiQHO4 LOAaiXUmA9QfzC5oAcXu IFMjHRCaY4MhgMVq BUamT409DXhsGlT9ISMc crMhY6OsKSGblYjkDiH3 d8P6Kv7ZG9F3II23BU84 qXKuq3U7fPT6W1Lm IDEqmzvvhcmfxLH9ZJYh PJPgqT38Ea1pzNdaKb0m XUPaVGQ5UJJjoZIlF4Yv tG2oJyWpSFNwNNUm X9DyvWFlRMjfD835CEdw IjV6DHMpblEsX3HvYVPy uXtsWeM8g4K9Qs0WPSz4 RC36WX11dNEre1A0 vLI0C3YkJNQlwgotmrkw cDV1IZIvAYChvC50Na9h hZsnFc9zFAOeNVF6SXSw oKRjP4WorY3lMyQz LQZyEAVrD7PcqWXoFCbu V750TUmqJcA7GPXsvfQz Z0PsBJZfzQcuHcN5e0J3 Ke7IEKLhNH71ECH8 rOY2XI15LI83W4AuBdyv dGFibGU+PHRhYmxlIHdp ZHRoPScxMDAlJyBzdHls KU1wSf0tPYZlCNXy jYbwiOFeTzFfe7ovPCTm PIklOA5agOuvS4TqsDX1 ZXWdw6t5Ez52A03gY2Vg dXA+AJXovZG3zUR9 tC6iHnPlCeU7UWcxR654 FtBpgUGsGdelg4wjv8tj eRd5JwB3ZEIdtoQtvPqm IBX8n0JfOc06D87y IHdpZHRoPSIxNSUiIHZh eDxsxb6btX6gYg1+PGNv qLU9lZT9sJ0xIiYdZaK8 UTixQ466MtDgwRKf Krvvc7ogf2hvrDw9PnUf YHCuzoAqhPboBFO6s2Xh Jr54S0BwnSpzl6KsZms6 lf31cXOag3D2aRR8 Z8QuSQEbicaibDSckGby HY3iRTXtfjdjELWbhE1g RAKlM5q1BqLlNoK9FPtw E5OeutI2XXLgqGUa GIojTSE7J67ab9M2IGPi XVOiXAO9rKZ7vY5pwLey bjogbGVmdDsgdmVydGlj VRdoUTwxG166MYQq rVhwSUQtaH9nZGQlsKJi vKibGW4cGXNngjxaCbwS QkVSTElORywgTEFXUkVO E6HxZIeaoXU+PHRk UXT6sTsjQGenJUPniF4p JJQlS1b2VfHeNjW1PTdw V6ObOZMflkrpDv75zS5d CsVrAbF8NWupT2Tg crJ4SLXgbRPoMNtuGVY5 S11aq9Q4UFNuUACoYUT7 wMR0eL4opVpvovueiSHc dDsgdmVydGljYWwt IFmxK507EPYycZztPqT4 TnExEhG1JRq9L7UaQxw4 WNIzcTcvFA9ejJHkZHha Gp1ncTdofCmiMT1t QDQfzjfnAAQrxT9eZPCf lGKeeVpoOZ2cBBOglprs q813PzAnJTG3BYOsjMZu D6AyiZ5bMxDcWUYv LBTwQ9GbiKKfXJjqO730 CJxkKjN1KVNnafSoA9Cl VHArhLmjFcD6l1S9Wh30 MiBZZWFyczwvdGQ+ NLTkGNC5wVskNTscWKHi kM2wHGXfO8n1DcJpKqI9 TTzcM5DbUIUfrsrgWk15 nQ1wAeDnOgJ3MIai T8ZhasD9EIZxqKKzZPch SHI2I99nu7M5VBMxZPCe ZRN0mHN7vH9wgIatiqal bGVmdDsgdmVydGlj IEukBJxeJ307UBFncFhq Zl7GNDU4X8KhXlf4SJEu dYgsOA8ogEPsKOefVj8o xRmrtVblSB3oLRZr yvrfVVYziB6rNVLpmDGx fXxpMK7eOGTgtpahm393 FrPmOQQ6CVApuCVvG7Co uS2oVoEeHZVmIYIg J4TplHPvVBkvK361KWog QxW9JWSufdMeL5GnLQAy pSebUrR7t7A7By4RQTzt dGQ+MX70iy90Z3Lx FyaqTsp3EFFwJCT3wGW6 dV0rTONtLWhef5M9cZE9 Y7LyhkCfyj4bv0ycDGBn MEndR36quDThd1X6 LDNhpFX6HDOedFpjNxVr pQ39Eav+GPSfqTcke4Dq Aoayh9nfi8dqdEg7CpYh JSIgdmFsaWduPSJ0 f8BfJb85C16dKMjlQMXg QDXyHBQhUAGwgObtok7p aF3vGj5+YNWttPX2aXH2 pQ2lIbIpNeC6FBmq Q621QbOcpRErFuxry6co h5zlkBm2BmDjTRSelmOb lGupNOO1p0AfVq03G1Qi kSwsk0EeBgm0av99 gRPrr3S3uNC1P6PeQHWd lkmthXQulEpyVB2vSYBt tbxfJOQgcL8oVTLdL1x3 DaCuXmZ6BYnfV5Vs zaD1WUUerFRwYEFqiHVH fG0bbxlel8wnzwltNlXj OCKmUDa7BTw4AICwwJwq TlEuPMC8WmB3XGZ5 mQVthJ8wkXgufmdauO3l Oyc+TBo0d2rqiCJqVU5b wSX7RW33XU34sMKfd5Z5 sGB9B6XeLMLouuis cpvvoXP4QIQcXZYktX07 Kf5hcFccPh4xJDPzQVS0 MXAwsTWaG5OkpK8qKdDa XAAqXXTpD3JoiHSt UPfkR084YHuhOzT9HWXz sfPqH6QkLVYckDpgHtV1 y3A6Gs8JHN06BI54QJ79 fYScm2C1sFW2W0Se OJXwyvwjwgpyfES3AJNt RZJgcS07Pe9sfSycAo0h CPHoVTZ4HLGvxWDuB2Zg kX4vRwXwGIUzGCOi N3DxcGPiFHdkN348LQal VyH1LJWuhmJtU6UfDBWe sApuLsF0c7F1An9HVl82 ZI74GS45vUDaz9L5 oDY0C8ZlDDUnmtpoprlh qMW4GGRtIHDldP64Bg1m vGekLx7bHMZuCIP3NPVp sHZsU7IpbN2pVrYp TIDkCOBiN2LrmGQyIKfo M684FNxqLoD7OQOnmaAh O3PeOFAtnNweSvY4q6Y7 Kd6NGCfyfxa4V4Qv PjwvdHI+OK41IRJsUF99 mBBdwMBxo3wdeKs8IzDn WGJrKZH9tVzfKKeku3Ta HINaT79zrDXzr2F1 IGN (more content not included)... Normal [facility] C Urineon 09-03-2021 C Urine <10,000 cfu/ml Normal [facility] Comment on above: Performed By: #### 6 [id number] ####[facility] (DEFAULT)[address] [place] [address] Progress Note - Nurseon 08-14 Progress Note - Nurse PAT chart for 09-17-2021 surgery reviewed per anesthesiologist, Dr Mccauley- no additional orders received. [Electronically Signed on: 09/02/2021 13:45 EDT] Rita Molina RN [Verified on: 09/02/2021 13:45 EDT] Rita Molina RN Normal [facility] Provider Orderson 09-02-2021 Provider Orders [id number] #[id number] [facility] .Auto Diff 109-01-2021 Auto [place] % 9 % Normal -12 [facility] Comment on above: Performed By: #### 1 [id number], [id number], [id number] ####[facility] (DEFAULT)[address] [place] [address] Baso Abs# 0.0 x10 Normal 0.0-0.2 [facility] Comment on above: Performed By: #### 1 [id number], [id number], [id number] ####[facility] (DEFAULT)[address] [place] [address] Basophils/100 WBC (Bld) 0.6 % Normal 0.2-2.0 [facility] Comment on above: Performed By: #### 1 [id number], [id number], [id number] ####[facility] (DEFAULT)[address] [place] [address] Eos Abs# 0.0 x10 Normal 0.0-0.4 [facility] Comment on above: Performed By: #### 1 [id number], [id number], [id number] ####[facility] (DEFAULT)[address] [place] [address] Eosinophils/100 WBC (Bld) 0.7 % Low 0.9-4.0 [facility] Comment on above: Performed By: #### 1 [id number], [id number], [id number] ####[facility] (DEFAULT)[address] [place] [address] Lymph Abs# 2.2 x10 Normal 1.3-2.9 [facility] Comment on above: Performed By: #### 1 [id number], [id number], [id number] ####[facility] (DEFAULT)[address] [place] [address]0525 Lymphocytes/100 WBC (Bld) 31 % Normal 14-48 [facility] Comment on above: Performed By: #### 1 [id number], [id number], [id number] ####[facility] (DEFAULT)[address] [place] [address] [place] Abs# 0.7 x10 Normal 0.0-0.8 [facility] Comment on above: Performed By: #### 1 [id number], [id number], [id number] ####[facility] (DEFAULT)[address] [place] [address] Neut Abs# 4.1 x10 Normal 1.5-9.2 [facility] Comment on above: Performed By: #### 1 [id number], [id number], [id number] ####[facility] (DEFAULT)[address] [place] [address] 72793 Neutrophils/100 WBC (Bld) 58 % Normal 44-88 [facility] Comment on above: Performed By: #### 1 [id number], [id number], [id number] ####[facility] (DEFAULT)[address] [place] [address] Standard 09-01-2021 eGFR Non AA >60 Invalid Interpretation Code [facility] Comment on above: Performed By: #### 1 [id number], [id number], [id number] ####[facility] (DEFAULT)[address] [place] [address] eGFR AA >60 Invalid Interpretation Code [facility] Comment on above: Result Comment: [employer] korina Kidney disease could be indicated at eGFRs of less than 60 ml/min/1.73m2. Kidney Failure is indicated at less than 15 ml/min/1.73m2 Performed By: #### 1 [id number], [id number], [id number] ####[facility] (DEFAULT)[address] [place] [address] 29108 Anion gap [Moles/Vol] 12.0 mmol/L Normal 5.0-19.0 [facility] Comment on above: Performed By: #### 1 [id number], [id number], [id number] ####[facility] (DEFAULT)[address] [place] [address] 10006 Calcium [Mass/Vol] 9.7 mg/dL Normal 8.9-10.3 [facility] Comment on above: Performed By: #### 1 [id number], [id number], [id number] ####[facility] (DEFAULT)[address] [place] [address] 27720 Chloride [Moles/Vol] 102 mmol/L Normal 101-111 [facility] Comment on above: Performed By: #### 1 [id number], [id number], [id number] ####[facility] (DEFAULT)[address] [place] [address] 44644 CO2 [Moles/Vol] 29 mmol/L Normal 21-32 [facility] Comment on above: Performed By: #### 1 [id number], [id number], [id number] ####[facility] (DEFAULT)[address] [place] [address] 55005 Creatinine [Mass/Vol] 0.94 mg/dL Normal 0.90-1.30 [facility] Comment on above: Performed By: #### 1 [id number], [id number], [id number] ####[facility] (DEFAULT)[address] [place] [address] 28833 Glucose [Mass/Vol] 109.0 mg/dL Normal 74.0-118.0 [facility] Comment on above: Performed By: #### 1 [id number], [id number], [id number] ####[facility] (DEFAULT)[address] [place] [address] 19068 Osmolality 281 mOsm/L Invalid Interpretation Code [facility] Comment on above: Performed By: #### 1 [id number], [id number], [id number] ####[facility] (DEFAULT)[address] [place] [address] 99128 Potassium [Moles/Vol] 4.1 mmol/L Normal 3.6-5.1 [facility] Comment on above: Performed By: #### 1 [id number], [id number], 9315069 ####[facility] (DEFAULT)[address] [place] [address] 44962 Sodium [Moles/Vol] 139.0 mmol/L Normal 136.0-144.0 [facility] Comment on above: Performed By: #### 1 [id number], [id number], [id number] ####[facility] (DEFAULT)[address] [place] [address] 75535 Urea nitrogen [Mass/Vol] 21 mg/dL Normal 8-26 [facility] Comment on above: Performed By: #### 1 [id number], [id number], 0644436 ####[facility] (DEFAULT)[address] [place] [address] 92232 Urea nitrogen/Creatinine [Mass ratio] 22.0 mg/mg High 4.6-16.2 [facility] Comment on above: Performed By: #### 1 [id number], [id number], [id number] ####[facility] (DEFAULT)[address] [place] [address] 39541 CBC w/ Auto Diffon 2 Erythrocyte distribution width (RBC) [Ratio] 14.0 % Normal 11.5-15.0 [facility] Comment on above: Performed By: #### 1 [id number], [id number], 6421030 #### [facility] (DEFAULT) [address] [place] [address] 56866 Hematocrit (Bld) [Volume fraction] 45.0 % Normal 34.8-51.9 [facility] Comment on above: Performed By: #### 1 [id number], [id number], 6025520 #### [facility] (DEFAULT) [address] [place] [address] 24063 Hemoglobin (Bld) [Mass/Vol] 14.5 g/dL Normal 11.8-17.7 [facility] Comment on above: Performed By: #### 1 [id number], [id number], [id number] #### [facility] (DEFAULT) [address] [place] [address] 10537 Instr WBC 7.0 x10 Invalid Interpretation Code [facility] Comment on above: Performed By: #### 1 [id number], [id number], 7557170 #### [facility] (DEFAULT) [address] [place] [address] 65010 Man Diff? Auto Normal [facility] Comment on above: Performed By: #### 1 [id number], [id number], 9577351 #### [facility] (DEFAULT) [address] [place] [address] 65395 MCH (RBC) [Entitic mass] 30 pg Normal 24-34 [facility] Comment on above: Performed By: #### 1 [id number], [id number], 1135747 #### [facility] (DEFAULT) [address] [place] [address] 32956 MCHC (RBC) [Mass/Vol] 32 g/dL Normal 26-37 [facility] Comment on above: Performed By: #### 1 [id number], [id number], 4624218 #### [facility] (DEFAULT) [address] [place] [address] 76572 MCV (RBC) [Entitic vol] 93 fL Normal 81-100 [facility] Comment on above: Performed By: #### 1 [id number], [id number], [id number] #### [facility] (DEFAULT) [address] [place] [address] 37732 Platelet 216 x10 Normal 138-427 [facility] Comment on above: Performed By: #### 1 [id number], [id number], 0355082 #### [facility] (DEFAULT) [address] [place] [address] 06984 Platelet mean volume (Bld) [Entitic vol] 10.2 fL Normal 6.3-10.2 [facility] Comment on above: Performed By: #### 1 [id number], [id number], [id number] #### [facility] (DEFAULT) [address] [place] [address] 19191 RBC 4.86 x10 Normal 3.70-5.30 [facility] Comment on above: Performed By: #### 1 [id number], [id number], [id number] #### [facility] (DEFAULT) [address] [place] [address] WBC 7.0 x10 Normal 3.5-10.5 [facility] Comment on above: Performed By: #### 1 [id number], [id number], [id number] #### [facility] (DEFAULT) [address] [place] [address] XR Bone Length Studies Scano gramson 09-01-2021 XR Bone Length Studies Scanograms EXAM: [...] MD 09/04/21 4:45 pm Technologist: Elysia SIMONS [facility] Complete Blood Count with Au to Diffon 06-09-2021 Basophils (Bld) [#/Vol] 0.04 10*3/uL Normal 0.00-0.20 [facility] [employer] Comment on above: Performed By: #### C MP, CBCAD #### [facility] [address] [place], [place] [id number] Basophils/100 WBC (Bld) 0.6 % Normal [facility] Comment on above: Performed By: #### C MP, CBCAD #### [facility] [address] [place], [place] [id number] Eosinophils (Bld) [#/Vol] 0.11 10*3/uL Normal 0.02-0.50 [facility] Comment on above: Performed By: #### C MP, CBCAD #### [facility] [address] [place], [place] [id number] Eosinophils/100 WBC (Bld) 1.7 % Normal [facility] Comment on above: Performed By: #### C MP, CBCAD #### [facility] [address] [place], [place] [id number] Erythrocyte distribution width (RBC) [Ratio] 13.7 % Normal 11.0-15.0 [facility] Comment on above: Performed By: #### C MP, CBCAD #### [facility] [address] [place], [place] [id number] Hematocrit (Bld) [Volume fraction] 43.3 % Normal 38.5-50.0 [facility] Comment on above: Performed By: #### C MP, CBCAD #### [facility] [address] [place], [place] [id number] Hemoglobin (Bld) [Mass/Vol] 14.1 g/dL Normal 13.0-17.1 [facility] Comment on above: Performed By: #### C MP, CBCAD #### [facility] [address] [place], [place] [id number] Lymphocytes (Bld) [#/Vol] 1.7 10*3/uL Normal 0.9-3.9 [facility] Comment on above: Performed By: #### C MP, CBCAD #### [facility] [address] [place], [place] [id number] Lymphocytes/100 WBC (Bld) 26.3 % Normal [facility] Comment on above: Performed By: #### C MP, CBCAD #### [facility] [address] [place], [place] [id number] MCH (RBC) [Entitic mass] 29.1 pg Normal 27.0-33.0 [facility] Comment on above: Performed By: #### C MP, CBCAD #### [facility] [address] [place], [place] [id number] MCHC (RBC) [Mass/Vol] 32.6 g/dL Normal 32.0-36.0 [facility] Comment on above: Performed By: #### C MP, CBCAD #### [facility] [address] [place], [place] [id number] MCV (RBC) [Entitic vol] 90 fL Normal 80-100 [facility] Comment on above: Performed By: #### C MP, CBCAD #### [facility] [address] [place], [place] [id number] Monocytes (Bld) [#/Vol] 0.6 10*3/uL Normal 0.2-0.9 [facility] Comment on above: Performed By: #### C MP, CBCAD #### [facility] [address] [place], [place] [id number] Monocytes/100 WBC (Bld) 9.6 % Normal [facility] Comment on above: Performed By: #### C MP, CBCAD #### [facility] [address] [place], [place] [id number] Neutrophils (Bld) [#/Vol] 3.9 10*3/uL Normal 1.5-7.8 [facility] Comment on above: Performed By: #### C MP, CBCAD #### [facility] [address] [place], [place] [id number] Neutrophils/100 WBC (Bld) 61.5 % Normal [facility] Comment on above: Performed By: #### C MP, CBCAD #### [facility] [address] [place], [place] [id number] Platelet mean volume (Bld) [Entitic vol] 11.30 fL Normal 7.50-12.50 [facility] Comment on above: Performed By: #### C MP, CBCAD #### [facility] [address] [place], [place] [id number] Platelets (Bld) [#/Vol] 222 10*3/uL Normal 140-400 [facility] Comment on above: Performed By: #### C MP, CBCAD #### [facility] [address] [place], [place] [id number] RBC (Bld) [#/Vol] 4.84 10*6/uL Normal 4.20-5.80 [facility] Comment on above: Performed By: #### C FRANCISCA, CBCAD #### [facility] [address] [place], [place] [id number] RDW-SD 44.9 fL Normal 37.0-50.0 [facility] Comment on above: Performed By: #### C MP, CBCAD #### [facility] [address] [place], [place] [id number] WBC (Bld) [#/Vol] 6.4 10*3/uL Normal 3.8-11.0 [facility] Comment on above: Performed By: #### C FRANCISCA, CBCAD #### [facility] [address] [place], [place] [id number] Comprehensive Metabolic Pane chikis 06-09-2021 Albumin [Mass/Vol] 4.6 g/dL Normal 3.6-5.1 [facility] Comment on above: Performed By: #### C MP, CBCAD #### [facility] [address] [place], [place] [id number] Albumin/Globulin [Mass ratio] 2.2 {ratio} Normal 1.0-2.5 [facility] Comment on above: Performed By: #### C FRANCISCA, CBCAD #### [facility] [address] [place], [place] [id number] ALP [Catalytic activity/Vol] 80 U/L Normal 40-129 [facility] Comment on above: Performed By: #### C MP, CBCAD #### [facility] [address] [place], [place] [id number] ALT [Catalytic activity/Vol] 16 U/L Normal 9-46 [facility] Comment on above: Result Comment: 01/13 Female reference range changed. Performed By: #### C MP, CBCAD #### [facility] [address] [place], [place] [id number] Anion gap [Moles/Vol] 17 mmol/L Normal 12-20 [facility] Comment on above: Result Comment: Effe ctive 02/18/2019 reference range changed. Performed By: #### C MP, CBCAD #### [facility] [address] [place], [place] [id number] AST [Catalytic activity/Vol] 22 U/L Normal 10-40 [facility] Comment on above: Performed By: #### C MP, CBCAD #### [facility] [address] [place], [place] [id number] Bilirubin [Mass/Vol] 0.40 mg/dL Normal 0.30-1.20 [facility] Comment on above: Performed By: #### C MP, CBCAD #### [facility] [address] [place], [place] [id number] BUN/CREA 20 Ratio Normal 6-22 [facility] Comment on above: Performed By: #### C MP, CBCAD #### [facility] [address] [place], [place] [id number] Calcium [Mass/Vol] 9.4 mg/dL Normal 8.6-10.2 [facility] Comment on above: Performed By: #### C MP, CBCAD #### [facility] [address] [place], [place] [id number] Chloride [Moles/Vol] 101 mmol/L Normal 98-107 [facility] Comment on above: Performed By: #### C MP, CBCAD #### [facility] [address] [place], [place] [id number] CO2 [Moles/Vol] 26 mmol/L Normal 20-31 [facility] Comment on above: Performed By: #### C MP, CBCAD #### [facility] [address] [place], [place] [id number] Creatinine [Mass/Vol] 0.7 mg/dL Normal 0.7-1.4 [facility] Comment on above: Performed By: #### C MP, CBCAD #### [facility] [address] [place], [place] [id number] eGFRAA 132 mL/min/1.73m2 Normal >60 [facility] Comment on above: Performed By: #### C MP, CBCAD #### [facility] [address] [place], [place] [id number] eGFRNAA 109 mL/min/1.73m2 Normal >60 [facility] Comment on above: Performed By: #### C FRANCISCA, CBCAD #### [facility] [address] [place], [place] [id number] Globulin (S) [Mass/Vol] 2.1 g/dL Normal 1.9-3.7 [facility] Comment on above: Performed By: #### C MP, CBCAD #### [facility] [address] [place], [place] [id number] Glucose [Mass/Vol] 98 mg/dL Normal 65-99 [facility] Comment on above: Result Comment: For FASTING Glucose --- ADA reference ranges: Normal 65-99 mg/dl Prediabetes 100-125 Diabetes >/= 126 Performed By: #### C FRANCISCA, CBCAD #### [facility] [address] [place], [place] [id number] Potassium [Moles/Vol] 3.9 mmol/L Normal 3.5-5.5 [facility] Comment on above: Performed By: #### C FRANCISCA, CBCAD #### [facility] [address] [place], [place] [id number] Protein [Mass/Vol] 6.7 g/dL Normal 6.1-8.1 [facility] Comment on above: Performed By: #### C FRANCISCA, CBCAD #### [facility] [address] [place], [place] [id number] Sodium [Moles/Vol] 139 mmol/L Normal 135-146 [facility] [employer] Comment on above: Performed By: #### C MP, CBCAD #### [facility] [address] [place], [place] [id number] Urea nitrogen [Mass/Vol] 14 mg/dL Normal 7-25 [facility] [employer] Comment on above: Performed By: #### C RFANCISCA, CBCAD #### [facility] [address] [place], [place] [id number] Hemoglobin A1Con 06-09-2021 EAG 136.98 Normal [facility] [employer] Comment on above: Performed By: #### A 1C #### [facility] [address] [place], [place] [id number] HbA1c (Bld) [Mass fraction] 6.4 % High 4.0-6.0 [facility] [employer] Comment on above: Performed By: #### A 1C #### [facility] [address] [place], [place] [id number] Q - B-TYPE NATRIURETIC (BNP) on 06-09-2021 Natriuretic peptide B (Bld) [Mass/Vol] 33 pg/mL Normal <100 [facility] [employer] Comment on above: Order Comment: [facility] performed at: [facility], [address], [address], [place], [address], Cd Mixer: Curtis Lyons MD [facility] Collection Date/Time: [id number] [facility] Results Received Date/Time: [facility] Reported Date/Time: FASTING: NO Result Comment: BNP levels increase with age in the general population with the highest values seen in individuals greater than 75 years of age. Reference: J. Am. Cheryl. Cardiol. 2002; 40:976-982. Performed By: #### [id number] #### [facility] [address] [place] [address] Coding Summaryon 03-16-2021 Coding Summary HTMLBase 64 WczbmlzdPHa3zWs+PGhl YWQ+VO8CYWYxW55llVKf yR0VK4bXEN4TCTNLCQBW KT7VIV6atTO1MUcrI5Sj biAv GuxylCSwBX44KXo4NAU1 jMxpKByybL0ohMMhC5k6 VuKpEJ64dH21NTbaFDQm ReX9LoRiaxmwdLLo Y4crJwDyeBVkXhg+PHRh YmxlIHdpZHRoPScxMDAl WlNdsNsyOA6aAf8iBIRk LWNvbGxhcHNlOiBj a2ajFVStLNxkIV2grWuo A2WqvNE4FSQyu8a8Xu38 dHI+KEJtWHQ3cZexLFag g579JlRqx3zcEKC6 nYQpLYswWQL9N82uj1B6 QWGfORUvQDL1cIM5gO9f gJjyokwpW9DqoLJmLpO2 PFL7qHVczS9vwZfp rkkdrO9xYqo+P37CNK4X EJWVPC9EGvx7M5VrRnkd dHI+UP33PKCcIH08eMNj vUVay3llzFk5WpHg BIVoTYG3eFleDKzgu3Ix KELuO12sjORvh3X2KYEl iXdkkAUwGjZkgAL2lK4w EHgtjspuv0pivlmr Tqoxa1frfh84yI44J32e WOaqHTXxBLF7XAHdGDWn mZzded3lwN8dRg9+IDxj a8fzy2sblZw4GhSc XVIpncBxsMwpXHP0k0Vw Gp66O1HgcJhub8SzGai5 fb22yBExk0O9fIM5GMsc JBVjaP1kWSezFdS4 NHXdNhCamP28sFIlFNla Fh4mmPasxCubSI9tWYMt gwejWFEmeW6rZDVqjLTu uMojEK5vTKGmtelo h589TlWgTIJ0WHClaVTq H9AkgH7nStTiKIDlYUIf K7UtwEOpXZqbH445ITxj GhA8SVGfnuDlW8Ku UQXniPdqMgZ3e4K7Dq4H j0IllzlfWOS1HOovQKQa UqOeCaRaBfE6X9BuXjz1 ZIJukXkaPU7kM2Ri YIDyfrfydzcbtDW3KZOe WXQcuI33bIImFPtuMk9h d1U1g462DWLiRHTgmO92 Cf5bvAtuYZXczLBR kR1jevgjb4mxjkykJwHr IJHcACk0YJh6SUBskYoe HvOaZIL6BsU5KGN4eOSq eK7qnWbprizugW4c Oyc+W82tzC8vIXX1ENR6 uyyyVBQkbiCnYP85QM13 Q4BgEwmznUSpxQR+PGRp riCwmZkhMK3pAyHs s8kua3KoSRrqS5QaTVTa NQogYty8EAApCWG8xCN5 nO7dOSHkQZcnb3O1qPK7 O5GtmwNlzl8re3uq OKSrNMswW43awZVmi0M2 HNVzlFW8TAZtkLppLtWl hA19Iay+AOMjaSxni3Fn Zoere4uct6ltaPw1 IjMwJSIgdmFsaWduPSJ0 v8GnTw42J21tWNkcOWGu ZFWpVPEuVRZltCmvif9b tB7wZy8+PGNvbCB3 rDL5fD0eIDJaQcP2AIue T218NoKdyNVcWzyel5ll a5rveXk2HbYdOAJanqDu pLcuPGB6c8ByGw96 Y61vXEyvFVFdFUJeAJRs UFEycBdpmg6fnR6eEf0+ LX0sl4gjvb31gL07mSB+ XGCnYHT7tYdcWFdv MFCoyE8uINowBfP4FOEt WhMasX78mDXuFWfoOr4k sKbhbYwfQC6qVOWjaopr b554IfJuz8izABEi hKWbLWptTNG2A65qk7D7 XWIyWIZbAID6dVZ2aO5s bGlnbjogbGVmdDsgdmVy jNdgXZdiARsoT469 IHRvcDsnPlBhdGllbnQg ZfBcJBv3Z9RaIjn2MCEa aMcgLP5zfCVePQtyJr6h rMovdLhaJF4bXHYn zwlpf654VaHoe2xlYUYe sZAkIEffQKP8Z04xe5L6 RULcYIBeVSS4lOJ1nK3k bGlnbjogbGVmdDsg bqGueWkcYLpbWAyzC066 IHRvcDsnPkJpcnRoIERh rMW6QE78OM50zXFds0M3 iYW6M1WiAELljavl ugprzQY0HNCjAPMudY86 Np9taZbsSi9tWEUiVOM1 TKGdkEAmX1JbdH1oUmPi NVHaFMTzT6YlzJRl LEhgK885EVfcOjW5GJDf stDbJ3WjGOYjrYlrXcG8 t7V3Nn0PO4U0HU88WN33 uKHdi5J5sIL2M9Em OQAyhabrtolaxKD7YHKs MULbnV37Ar1rwHqcPg1l BMUvHVC1TKHhbBDuB8Vp eH8jAuAgXKVbKFAi I4SpjOTbRHdtS543LWdt LdQ3GKOvcbIbK2GyZIRn bVyqXpI8c0A7Jn5VYOe0 YS52UF17sYYtb8F5 zMP9O4HyYSVqcljauoqe cXN7JUZgARVjrP69Ac4j aDtuPm1lSRQtFIM9RHVm dNXxH6VqfF4rGdYs HAMlEIPwW3MqmWNxWYnn V171RGldFpY4OCTnjmOo K5JxSKZaiFmgDpF8q4M6 Xg8XGYRgOU90OYS3 lJW0OW19QM00D2QrLefo dGFibGU+PHRhYmxlIHdp ZHRoPScxMDAlJyBzdHls UP1rUh8rTIIwUNFt pHicdVEoAeItp6hnNICg IPunVW7ilZeiX1QwgPU6 PWGzp9q3Iz53A05xY6Xd dXA+TKHrlQJ6rCY2 fY1lJyNnLlB6XIfyJ405 SfLtcLYpImzzd3hxr2ez rZf0JmU9WHAgxsNpoUva TGE3i9KeEc25R32r IHdpZHRoPSIxNSUiIHZh fUjjfa5ocI1uWt6+PGNv sIW9dOJ9jV6lGaNxKkB3 GToxX049BvOanREr Eaepl2lvp7qagOa5SoZm YQNmdpTkfWctLYI8l7Nq Pw44O0RroDent6FmPgs4 ei93hDQbd8U8iGF5 T4KnJTVacjewhZGdmLef VR2fRWVjzwonZAXdzV9j STNyE1r2EiBtZuH4VUhe J3WgrzH5YMMxkTNj VKraVQI5Y11ip9R3LZXb SBVoZCX4iWQ6lV2uoAne bjogbGVmdDsgdmVydGlj TGznUXplX076BVZf kJhyRCEqmM6tVXNgqGHh tYfwAV9cISBwsvicPxnT QkVSTElORywgTEFXUkVO N0DaVTgfbIQ+PHRk ZGA1hOraQCscQULciC2z ZIEeY2d5DbDvUrK1KOoi C6WpIFJzhzgdPw97zK7b WaIhAfB5WEayT8Ic zqC1ALRwwKEpLFxzRNC3 I92aa4N7GXFgFPNfPGM8 sDT0pC1lhOzwuhoauYVu dDsgdmVydGljYWwt ZMhfT637RLTijAqaTmO4 YtXlHsX5YCb6G2LmNpt1 HMAfmSsaHN9zaDYtQGay Tm7hnXloqSszMX4w RZNgtubsGMYkpN1oIRNv jQKtvDqpTI8bCSKxsrhn s249OjXvQDU8KCUehDMv Z1WnxD5gTxLwFSKk ATSqD5XckZJeOAyeQ635 JZicTaZ6OKSqwkQuN4Lo CKEhnFqsFbE9q4D7Pq49 MiBZZWFyczwvdGQ+ FBHuUBM5nEhcQAfdSEKh lI2lITZaH1z7JnQzSgY0 CXkqZ7LyKETwlzbkTl88 pM9zGhFbOpT1PHbk V8MhwbB3DGPlrVZgVKca GWE2E61vu5H3BVCmVJPy FUF2uTE3gW6svWvpytmp bGVmdDsgdmVydGlj MYllVKaqT886QDSvyHtq Yk6SQRW1K0NfAgv8TFXn gNhgHV6tgSCsRBekBe4k zSfdkTmcNU2pNMLo gxpcXGQfqB7bUOVwnBCv zOuhOI5gHXAjmzcrd647 LxUdHJV1UGRggSOuH7Pp zW9pOaEiBTAvORCj R1XucBAlGKlkE907UEdv UgM5ENTofxBsW5XjMSJa jCtjLpI0a0E2Zv2TESsf dGQ+LI80gs94A2Ir GailBhc9MBJoHDQ5mOJ7 kE4jFVKuSOzds2B3nRD8 J4ZbavNrhh3av8ydJGZw CYkcC79vjWBgi3K2 BLAlvMI9JNNlgRgwPyWp bB98Ztv+ZGFxjDtat3Sm Aqnok7wit1whaKb3JxVa JSIgdmFsaWduPSJ0 l9WbMa78I72aPPzlXCRf SSRkRMAzPPXvoAuflp8n kQ1lYp1+KLEopBR3oMT6 wG2kKpEaVzV6PUir E260JhRbpTFfLufeo3ff p6jmcEy2HoTtFSRiwxHb aOrwAOG4m9PvRl71Y2Np lTmuh0LqEfv1nc01 mDOcg5G1jMJ6D3JhNHAi hzldtTHbcKbnYP0pDQWa zolgUICilT1iNCZmY0a7 FqVnIwI3UXneS5Me mzC2ITMbsJNbDRQdrCDR cR7arfobw7mxdcgqOfFh REChUSa4XSu1NBByaJlh KaTnBST7HnZ5HXS8 pFQgxJ1sdUllombnvK5w Oyc+QTx1r3nzaRVqQF3n hMF5FV02ZW14uOJxw1N2 kUZ7Z1FfNTKzapzt ioajiQF4KFPwSHPlaW36 Oc9yuXpfVl0rTURfVWH1 TCMqsUKaU1JdiL3wEmJj APMxZKYzR8ZjxPSw FZxeB435AKpjOqI2OAFe hbUuN7GeZKPgfWlhLvR5 c1M6Ge3FAB46EX87FC67 uXCmg9I3vSS7Z0Nm AMZdwphrxnjwlTR6ZPHo CMObtF37Dx9qzChzUt4r PHUpBZW7JXNdqNNvR1Id dH0aUgIoGULcXNIz C7OtzWKpRTfsZ635WWcn NbT5AKZkjhBjS2NvQVMn eUtqNtK2o0Y0Yw0JYc66 LF65FI96xJHjw4D5 tSJ4Y8MwHTLywpzwxfcz yUI8XANhTGUcjP28Dp5q uVwfHz5hRGVyQIV9EVVu wADhI1EavJ5bCxXv SODkUUKrY3YnuWMvUWju P857QVlfOwD5JCMwcwAc A8GaJOCnmOgnNeM8l5T2 Od9CNJtqmql3C3Gm PjwvdHI+BS26OZFhZM04 xMGsnEIwu0jwrZg4BpMh OEWdIIH5lVerJYxrj3Km JUJpU88xsIZaa0O8 IGN (more content not included)... [facility] Consent Formson 03-12-2021 Consent Forms [id number] [id number] #[email or web address] [facility] Coding Summaryon 03-09-2021 Coding Summary HTMLBase 64 YzjonugmUSe5gVp+PGhl YWQ+KY7BMQWrI31thFCf wL4ZB1mLWH5GBBHMCJVI RQ6IOT0yyRK2HOnnC2Ag biAv TmglwTGvYB58AFb6ZLF5 fRapNUkbkW0uqVYrY3h3 JsCbIU37uN38OWmaXMWq OeF7KrBdhcagtTBz A0qpPuCwaLAqTbm+PHRh YmxlIHdpZHRoPScxMDAl FoSlgTnjOH4oRi3tWYAi LWNvbGxhcHNlOiBj k3onTNQkKNqaUL1jsNqb M0DkmSQ7DMHwt4f2Iq04 dHI+QEJwBVQ8kXkqTTiu x429HoWyv8xrYVU0 sNVkHZygJLZ3U32oa8Z1 LIQxPLUgYOQ9cZG1zX1n aAdfmuhdY9XmzHDvYzW7 NPC7rPPydN9wiJun wugisD0oXfe+V75IZA3G CHPKPA6FAdp2E7ZeKuoy dHI+UD02JFPyRJ57sMIl oMWdf8xfjJj4SfOs FOChKDR0hVnaRRgfe8Jj NCSoE61oqUVgd5B2ZDXm mClzpGQoDoSyxXY0bJ2k XWkuvhnrj8llhmds Ozibt3asuv70bP46Z86h FJnqFKWlDXE1BNVkNTZm oPpoyr2lfK2aHy2+IDxj n9tfj9mrhPe5VrBa IFOomuEofWthEUH1p6Fj Kw13Z8LnmJyox4BhRrt7 xi30kRYpn6C3pDB5ZAps ZXImvI6nOWmnEzC9 XVRiGqXshM57kODaTPqx Hb4gjNmmvWulIH3eVTLu dwbpBYYgeH8gIRBgjJVw lVvwKD7vOYRagmwn x183TvZcUVG1EPKdzYVk J2TlkV1bRoCjMCTmNOIn J5PjcQSfHOcvH843UXtm WzW6KVQcdlGdS9Qj DNHjuNrxNaR3h0X2Bw5W y1VivjpyUFU7ZGukXBAw VsE0QbKjXzD9N2UcGrh5 FCMxfBblFT6wH3Yo TVOpastjaynksGA1FTIw FVUpkZ32lPHbCNrxPa2g t2A0a540LIMeCBJtyR84 Qi8hsBovTRYszVQT wF5akjgio6plenkjLyPl HJEwIDn1JBb2LRDrgJtn NiJwSPS2XbD7CBD6uZTh aG3qhCknczcgkM3k Oyc+M53lhL1vVTL3DRK7 pmscZBIuuzUkPM51CA27 Y2OiCexlzHYvcVI+PGRp lzYfjXnhFO8nMdPv t6anu9LzPMosD8JhYDKz FUvkCpg6RZHnWMB2xSK7 pB7kNCOfGBsrb0S4pSB9 H3JqxpWvwb7he0am PYWrMIfhR00cwNSxq3T0 KTGmmHD9MOBjfJptIlRl hT63Mlb+DXAmvJslx2Se Rltaa8ago6vfbYr3 IjMwJSIgdmFsaWduPSJ0 e9WtWa39N93iOGzkKZPh YZUkODNpMUEaoHylqd2t qE2zPb2+PGNvbCB3 bBL5uJ1nUIXfUaY9SQjy G881VtXfjMBeWpwwq2ua l7hhlFn7CiReRAGaeiXy mLtpUZW3n6MsLa26 M91rQWdoBXLpADYiIHIx HEHrfFayex8ebG5oAh7+ DW5kx2slbg11cQ72xTW+ IVMzKOV0lZlcIRdd SZZotC0kYYsaAzT6YOHt NmMnjA90rVAiMFjmQr2a pEowoQfsEY9vUYOvoqfh i665UvBhf0fnPAYq uSWmZMbiGLH1C76iu8B6 SJExRYKaSUG0fOX6tQ1w bGlnbjogbGVmdDsgdmVy qDkzKWylPTwoI852 IHRvcDsnPlBhdGllbnQg ZqAbHLf8K6HtPdt8XTXb oBcfJZ3qcUIaIRdhDk8f qZzraXtcUZ3lFNMe qefwg587CyQfb7nfWMLu fVEvMZrfWDA9R97uy6O9 LQBuGEKxIZO0zCX0sW1m bGlnbjogbGVmdDsg idBmbSaaRHnbEPcvC206 IHRvcDsnPkJpcnRoIERh kVL3VG38TV76hHVde5X0 hJZ0D1ViNNNneupt wsfmuYQ2ZVLhHGWufH29 Rh6acPwrZi3mVYWcQPO9 DPIutHLxU8MtpL8pEwSo HQUyMQNwK8LtyJXm CWhcC595LLpwOrQ0REIb jdOoT8KbBPCavJbtMqA3 h3N7Ss7EE9L1DS30SJ88 wSOel9F9qJF6K7Kw OOAzwobplopaxTF4MTOv NDHecM19Xr9ptUiuAk4h FJUvUJG0VCMgyOSyD5Wk oQ6hSpOaOIUrQWRv N2GzyDXoIMdoM825ZLzn QoU1RVAwciMqV1CsJCMy bFqaQsR2o3V5Rd3HIPn1 MF82VI66sKYic6I6 wTP4J6YzBQDikygszkmd qQF6DHFwJSYfmD89On4j aKgiZs6zWOZlSKL4TJAq jJYzK5AknT3lNfOx OYZeHTBvI2TelPOlMHju T398DMwwPfD3VQVpsyAo E7NuWNNwsLigMxD9b5O9 Ne4WXHPaTC63GSK4 cYU5UG85EA01O0HlBjet dGFibGU+PHRhYmxlIHdp ZHRoPScxMDAlJyBzdHls FH5rHq9hEDZfNEAy jPsesOLlUkInc6tfGUNo KCwlQJ0dyHmbH3JaiSH6 PYLjo3q4Im80S73hM4Pf dXA+SXRbiOX2cBD9 eI1rNtMoOgR4IYtkI831 XcIfrWNfWojhz8ale8gm yKa8EaX6CRXdnlUbjAgj DFJ0v2MtRp50D98a IHdpZHRoPSIxNSUiIHZh iKwxmg3yyC4kLx8+PGNv rEY6nWA8jD7lTnUvCzH0 ZVipM487WlVfiHFu Yoxtx0qve6dwoWh4XxWr MBDtgaCkwYqnMQP5b3Uv Kx64M0GrxLqcn7ZyOuy7 ua47dVIgn9T9pIJ0 L5UyYTHznhoflCIifKqi OP8gNHFiqiyyNONulL6w VIEfD4d2HmXyGtQ7WYfh X3LlozK4OOYxaRPu AZbgTFG8P89qt8Z0MUDb MHScOUL3rFB0eS6zqPup bjogbGVmdDsgdmVydGlj EDwkEQdcM033HXZj dTacJXQksX4lCVUthLLx hEiyMI0iEUQxwxbuQesQ QkVSTElORywgTEFXUkVO U4AuHJktqXJ+PHRk TDB5yIweRSngKSQzoG6p KFOmQ5q9CbRqAbZ7IWeu X2KqDSOcdvboEs45sG9y XsEkHdF3SIviD4Ge amO7TWKgwKYoPIerAMY3 V12pk7S3OBRnACCoQHD1 hWF2pC5qnLjswrkflVIv dDsgdmVydGljYWwt QZaxX929RGCvnKxgMjB7 GcKjMoH2WTw7X9YhCgj1 JKGwaTtoJO8ujYNtQTda Ua7byGdnhAodMM3s HTIqzcxoCIXzjL2cBBDk ePWgdSpbJU7yKDVafioy k556AwCuIXM4YFJgwGNm U8XzlD8xRqYdENBt NPCtM7EzwMGeLXvzG190 ITtfErO6TYAdavBuX3Qq HFIlfSkbYjG5d8M3Hp38 MiBZZWFyczwvdGQ+ ESFkZSQ8qSvrKGvsEZAk iN9mDWHxN5s4BwEsMrQ2 PQtqD2MuHMLccwniVa83 jJ4qCcNrGqT4BAoh B2NhtrV0DASxuAWtBImm PAA6A16ne0Y6AOLtQTPi USQ6mHM5cN8uqVelipwc bGVmdDsgdmVydGlj NIbxDKfhO668PGSjoGxp Vx2NYWP2Y4GzCsq6YAYb sAspDQ1mrXGmBHayTr7o gQwwtSsdHJ5yQAMe zxyzGNLyrM6nFVCbgDXw nEqlPM5xXPGkrrlws913 XxPwXSO8WOAafKOyA8Bg mY0fWyLzZJIvUAWn S8AulOUbPXxoZ001ZTgt PgN1XVPtukAzX8QsPCWj aZdlGbO7h8F0Fp9QFhWg cnZhdGlvbjwvdGQ+ CZ88ru99W9VvZutwQir7 RJRpSKZ8vRR0fO1sLSVc MWguz0P3qPF6F5MqtsKn au2vo2ygYSMmRQrj M42kcXJfs7Y2ZEStrKB3 RQPwiXckHtBgtO28Slp+ OCWgnIpop0EkAxikp3qb e1aplVm6XbUbIZIm chGybZllUZW9x3OvXm50 P25kXBurJYPeBAApNXFu CHXrtRdeiz5vfO3tGg7+ GQMpiOZ0tBX8zE9g JyXmIxD3ILggD102MwMc mXJoJskqb8ibz0cclAn7 IjIwJSIgdmFsaWduPSJ0 v0DaHl53K5LcfSbq v3YeWio9nx85uYJnq1P4 zLK8E1PqIPHiwsycpFBy lDixUX8hIXOpsulkJEDd jC2qBGMcH3v0ExAd HuW2KMibT8KlywV2XAHb xYLeFLDunFZSrK1gxxfv j8kqfrloBgTyPBRaBOm9 RJv9AKQgdKajGzFq DLB5LoM8EFM3qPXygU1q jJrwqniiqP6kQdi+UGh5 o8kbcYDnQE5ywFV3EJ57 HA09hJUee8H0nGP5 G6VoOOWfmwgyxaymuDN0 YDBzMUYyeO42Oj0fmRww Rj4cCXOxGHD9XKVwpEBs H9XeeT1gTsGiKRVb SNWiH9BxfPHnZLoeP282 SLhpGjW0TWVkerSoW1Zx ZJXwxKjrLlS4j5Z9Na5T MU46OY58ME96mTBo h5G4gOU9U8ZwCCUdjsev dwpszMH5VUEhPTTcaZ09 Ui5dvSwwVv2tPWDrCID0 ADWxhAGnM6XniR1u BuTqCLTnGSMhX9JroYKh HRyvA094QArkEmY5VRJw ocZpO0ZaZFJngKnuSwD6 k7X8Nd0QGs74SG49 UV27tNLjc2X5cRY4U0Vs PQExrainrgsnvHX3IGYr KBChuB54Uf2eiTqiDc2b FQSuCFV1PUAyoTAp F6GhxY6vJfXeYLAdSNYv L8NpeTDwUIklD723IYld RbT9XPHlcmOsS8TcOXKy hOrwFtO5n6O6Ok1T QGpexcv5J8DePpnknKN+ BO63QOGwML55lYDmvRIq j2jebEm0SlFrWHPdSRQ2 fVfdTItta7IvQBAe Y29 (more content not included)... [facility] Coding Summaryon 03-08-2021 Coding Summary HTMLBase 64 TnfunexmXZs6vRx+PGhl YWQ+FX4RUYWeE80wcYSx bH0AW1sEIX9LUDVBWASH HU2MRN9spMB7VGnqR0Uk biAv XxuxlGKvGY46VGn8PSN7 uSqwOBywpM1jcNKfV6e6 GbPlHP72oI74PMsvLRTv JnE3NcTigseccCIb I0gdWqRwfNAeFnw+PHRh YmxlIHdpZHRoPScxMDAl XyJcaOzbLH8pDc3fKRMp LWNvbGxhcHNlOiBj i9pzZNDyRZjfYE3evWda P3TiwGM6KGUlv1h3Ow69 dHI+HRPdMKG5sCssOFpz f489VuWnx9hiTDE9 pTJjXGjpEUY6X14qw6E4 CBGzWPKaPRL2fHK2bI2t rUsjcrfaV7YkgUIjHeR7 QVV4nBIoqE7hgUqm ytenuU0jMku+M12SLM9R YOXYLX7TPpf2U3JcCplw dHI+EX73OSCcMF58rVHb uCRps7mkgIk4SyLf NRArUTP0eLtgCJkoz7Fg FJAtY94qkMDoc9R2YTSs pBwbkQBvSaIcgPN1zR2c OXeauxgqt7xkxkhh Lmlxt0yjja88iV73R81y AYhkTMKnPJH9XVStDWJs qEkpsq4ewP9uWn1+IDxj i3ttt7jeoYp0ZhYu OOEdhuHiuBleMLO8b2Zi Uw42S3YrhHbso2JwAue3 ca54mJEdz3K2aWD2DXmc IQHtbL2zDEacWxH6 VFXlIrGgrS02gXMnYEbo Sh8szPrxzChbDB8aFBMl rikgIDYxeH4oAPOxvUVo tWxhBV6cAHYohgpt v630WiXwXVD6GPZkhOTt X4WykO2eGdNsHIBeZMBg Z9BmqNBpQBfeN134UXor AhZ7QRKtnlTtF9Bu OLAcnNffBsF5u0G5Fw8Q i2OsbombCRB4XIbvHHKf PgQ6ZaZdQuF6H7LkQfn7 BCZtpFvzNZ5oK6Ol MBZvbdbkiidwzNF0FSWs XKExxR66kLUdJGkpJn4q d3T0l788NWZcOUKyzC18 Dy1zwCpiKFBcbOUE cV8voncbu1fcpalzQfEa BSUpKVh1BSj0OLSirAmq NmPyWGL7LpC9SFD5vWMz nQ0avFvpxpetjC3c Oyc+W59vxR4oDIU2IHT8 ukgdAIAcngJpBE76PE48 R2JeXujohZNhbZS+PGRp hsVdhApuIU0gMsNb q5cll3JiDCfsD0YlRDTs CSuuFzp5ZHNiUDJ2aJN2 sF3cZZVyMYhwv8F5aEP4 U0NtrfOvqa7za3hr JLBrNZqlM84hoKAbw3J6 PAKhcBS9ETNuvGiiMcHf xK24Xew+ZVPjsFacl3Hk Xidra2euy4rriVn9 IjMwJSIgdmFsaWduPSJ0 z2QkIb72L84rOGfkEGRa ZIKuVQLiCWPhwSofiv7v qB8vTg6+PGNvbCB3 uCE9hF9vJZKfPdA6XSrl O101HoTgqSEvHmlsh9yg w7gfgAf8FaRkUBXnoqKb fLnwANE2m9MfFn97 K54jVVshRUKoHVVpHZIm RYUnzRrkuh4zfM8hKi1+ RY9jh9lljw28hF22aNE+ DXHqQID1dQiuHBnh DFFmyK5rIFwlWxG0FUPk NbWjaE94tLYnZZpkFz9q tHkwdBjrNX1zMDNefhgp d394EcHyp3waTVAl mYDxIVheUJK9P64zq9V9 DUCuEBJdFRT1uZR9xS1z bGlnbjogbGVmdDsgdmVy nCzvZWsoIOblJ004 IHRvcDsnPlBhdGllbnQg OjVzYRb3A5JvJdg7DHZr aGteHK1vbSVvFFokDj4f eObduMtdJK0uJNPc wcokv989MgVkr0siOCJa zCVeQOoaKNR8Q70ul3K7 NCNwEVSyVTY9sYK2kX7s bGlnbjogbGVmdDsg prRpvSvcPLqbJQyhH888 IHRvcDsnPkJpcnRoIERh kVI0GH92QD61jAPph6S8 bJI6A7OvPKZdfmts xjtnwCE6UVQsYLSkoM02 Wx0miMawSu4mDRDeQMB6 HVSzkQDjB3FyiT7rHlXp UEAsEYTsP4NdhINi UKjmS412VNapEgD4YPJa nqQoP9HnZKIxsCatPtZ5 l0D9Lq4UD2T0UU38QZ54 gASio0U6gHX7T3Le YACoxoblzqykgAW6LWEp VPGsmL69Tn8boRoaTw9m WXSeCSV9LNYhyJMoX3Wm vT8dBzRkZAKkKYWy L7UquJMfJRqnY038ARxu PvX4HILfchYjE5ZdRAHq fEgsZgJ6g0K9Dc7GGHb2 KP87QB84yVRfl4M1 sVQ3B2NdQCIauekyypec kRA4KMBdPALisW53Vc0t xUqeId5wIFFpPFX4MZIi qKOvV2EezX0yAvQd VZHrGJYtT3OjmBOxRPyr M951BWlyYfI7NIFydpGr E1HnQZBbmVzoBdN4n0S3 To5XRVDcVN21EKM2 hXY1QL81VJ41Y9OxArsv dGFibGU+PHRhYmxlIHdp ZHRoPScxMDAlJyBzdHls UD8aIv4fSGTfDVQi zQibaYLgWfTnp2viCUHf QXgpEG4thWylD1NrrTT1 FWIfv3u3Qj22V30jM4Ym dXA+RYCdsAD5tKV1 zX6jUxFbKxM0WPduZ725 GzFrzHNmPhjub0hkr7ly cYt7RrQ3IONcsqJnwGgp MTL7n0ApGf95G32x IHdpZHRoPSIxNSUiIHZh rPefqt9tsP2bKy6+PGNv lIQ0mQH2oF5rUmTgDnJ3 XExjA024LkOrsCPd Qofkq0adn3qcsQg0PsMz ALThavTspYstLCU8v0Da Yu00M7DdpChdm9QcDsw1 vr41lNHuc1F3pTS4 K7GaECPuhnepmBVzkDnr SG2fUENpqxewXLGueG7a WNFbI2f6AtWbCdY3YUzd G6QxnkH7YGHqvVCr AZydWSW5L67rf5Y5HKVo VCKdXRT3tPJ3jX7zaFhh bjogbGVmdDsgdmVydGlj HDxeMVgpC155WXHl bZklYUXhcT4dHRTuhAKn sTapZH6gRWRmvvclAidX QkVSTElORywgTEFXUkVO N2ZoKOxuyJR+PHRk YFZ5kAcjBFhsAEMlmW7o EVAmQ3n6GzPtQxX7DDxc P5XnLEPzewnnMs07pB3l VfXhNwO4HNunN3Nw bbL7KWYhvKRnKZpaMTN4 M56ex3R7ZBGlGPKtCUN2 zAK3xX0ruQnujuyaoAWw dDsgdmVydGljYWwt TEjlT525AEAbwYatMaZ9 MtZoOyC3LEl3U9JeTfj1 PWCauRtnXI3ayQQlHCzr Ar1mrEvvrDgjJO3b PGJpvqhwAEYnhQ5yCTLa tBAxyNxzIX2jKTNlqlwk q959SaLzWCP1BMQgiQEn E7OgvA9sAlEhIBKd QGLjY9HifRBaWDpoM684 XSriLpY2EYBcmjQdN8Py OTNscAdjAcU8a1L2Mg84 MiBZZWFyczwvdGQ+ MTUfXBA2fNhcNXeuAZAj oI3nYZOxU5f1KhPoFoX9 PUfxY5LxWZUqzoqsLb93 aL8lRrOxNcU9UImk L9HasuD0OVWviGUfIVth NBS6D78eb6U6ZRWpWFCm JGX7kKF6zS8cnHvbvkew bGVmdDsgdmVydGlj MEazDFlcI304MMBtoJvp Yo0EQCT3O6AvWnb8TWAi uSxzXI8waTJjHHxfTl1x aMcjePjiFA2nIQKn xtrdGDZgkI0fFIZruSTf yVjgQV6kLCPdaokox364 JlJpDOV9RWFnbAHlJ5Fl mO3yLaVnENNpHVOy Q5SvtGPpIRsgB188FTyl WiX6QYPbueBzR3XdSVNt eIkjVxG5q4U3Ly7LOMjn dGQ+TO23vj48D0Cl TmbiGsf9ABNyVZM8zEC2 rZ4cXMWpMDjua6E5xAC9 Z6TuxbVxqw8tk8uuYPCc BBfvJ26fnSRmh6J6 LTGzyRS8OOAlrXwpKkGr iH67Cjb+EUCzfDokz2Pa Vwpre6dqy1irpNn3MlMj JSIgdmFsaWduPSJ0 r6MhTb82L37yOJupQDIx QTNrWFEkNJXtkNmodb9i xG8zBr4+IUNkwGN9oTD2 yF5hEiXrUaH5DOzm G523YkGgtBRgOmfyt9fl i9xmrBv1CfDzBZLogdSh pGrbJOV2g6SqTw13Y3Kc mTanb4GdTan3fi35 eQQqr0N4iYG5K6LqKUVo yvzbjOQqnZfkUP8nLWPl aviaZDDizW5sXGUpA7q7 EuDqPbK1SEwwU1Px dqV4RYCizFGgPXZsuNZK wZ3mycohv5vxxwirHoEj FQFnEOq4QLt4CBGwgYom XpCqEBR2KeE8UIB7 nHKnhW9xtMsoscavqW2m Oyc+LUl7h4oroONuAD3s vTX7RI81DG78mCIkv4D9 vBG4O2ZqTGDdnlum frweeZN7YFXsOVHelA62 Qp3wiWwuKy2pIMYjKIE0 UZGgkLQzA6NjoS0tDeVc TBDbLLHvO8JdlSOa OEwfB917GIglDaT1CSUj iyRwT0YjIGJqaNgfFwK7 l9I8Mt3GJL17FQ90QL58 xPNju5B7xMV3O4Qv ENYfoxzbixwmgMZ2IQBm YHMtsX00Pa4vzLmaIi6x DWOeYCY2DOStnKOnA5Zr uN1sJlNeQEBaOEJv B8RqiZFkUVwwA859ZJqh HgV9CWMvslMlE7KvQEZm vPjsSfK3r8U8Kz2XUe76 VN06CZ37mFKik2E8 dTI8L2NnLHEijklwzzlx hIJ7WANrUZLyrY35In0y oKmlZl1oRNZdJWL8SJQb mNRfJ6RniE7jYiOx CHBxDHZgD7SllYIpBMge V750PJjdFwD7ZEBnklHq C5WcRJYhgVinYuD9y6L8 Jt2IMQdjcoy5Q3Lb PjwvdHI+UG53GLWbUA35 vJDyoLKfm0htrIo7CiJg IKVeAAL2xRqrLXtwb2Bz VWTmO03dfWKew2X4 IGN (more content not included)... [facility] Consent Formson 03-04-2021 Consent Forms [id number] #1.00OTGTIFF [facility] Electronic Messagingon 03-04 Electronic Messaging --- --- --- --- --- --- --- --- --- From: Ej ([email or web address]), Ej To: ZAINA WINTERS Sent: 03/04/21 10:12:15 AM EST Subject: Discharge Summary Ready to View A summary regarding your recent visit is available in the Documents section of your Health Record. [facility] MAGR Intraoperative Recordon 03-04-2021 MAGR Intraoperative Record MAGR Intra-Op Record Summary Primary Physician: DAVID AWAD Finalized Date/Time: 03/04/21 08:14:12 Pt. Name: ZAINA WINTERS.O.B./Sex: 1950 MALE Med Rec #: [id number] Physician: DAVID AWAD Financial #: [id number] Pt. Type: O Room/Bed: [facility] Admit/Disch: 03/02/21 05:52:00 - 03/03/21 14:09:00 Institution: Case Times MAGR Entry 1 Patient In Room Time 03/02/21 08:00:00 Out Room Time 03/02/21 12:09:00 Anesthesia Start Time 03/02/21 08:00:00 Stop Time 03/02/21 12:10:00 Surgery Start Time 03/02/21 08:50:00 Stop Time 03/02/21 12:08:00 Last Modified By: Jo-Ann Schwab RN 03/02/21 12:19:48 Case Attendance MAGR Entry 1 Entry 2 Entry 3 Case Attendee STEPDAVID SOLO Christopher J DO Long, Barbara RN Role Performed Surgeon - Primary Anesthesiologist of Fire Fighter Record Time In 03/02/21 08:00:00 03/02/21 08:00:00 03/02/21 08:00:00 Time Out 03/02/21 12:09:00 03/02/21 12:09:00 03/02/21 12:09:00 Procedure Arthroplasty Knee Arthroplasty Knee Arthroplasty Knee Total(Left) Total(Left) Total(Left) Last Modified By: Jo-Ann Schwab RN, Barbara RN Long, Barbara RN 03/02/21 12:19:51 03/02/21 12:19:51 03/02/21 12:19:51 Entry 4 Entry 5 Entry 6 Case Attendee Marjorie Esteves FIRE OFFICIAL, Sue Horner FIRE OFFICIAL Role Performed Scrub Personnel Media Services Director Media Services Director Time In 03/02/21 08:00:00 03/02/21 08:00:00 03/02/21 [...] Primary Procedure Yes Primary Surgeon DAVID AWAD Modifiers Left Surgeon Comment LEFT TOTAL KNEE Start [...] Modified By: Zaheer (more content not included)... [facility] Outside Recordson 03-04-2021 Outside Records [id number] [facility]21 Provider Orders [id number] [facility] Tele[facility]pson 2 Telemetry Strips [id number] [facility] .Auto Diff 1on 03-03-2021 Auto [place] % 10 % Normal -12 [facility] Comment on above: Performed By: #### 1 [id number], 75822275, 0565562092, 3923260207, 2122897, [id number] ####[facility] (DEFAULT)[address] [place] [address] 12877 Baso Abs# 0.0 x10 Normal 0.0-0.2 [facility] Comment on above: Performed By: #### 1 [id number], 12522116, 7329156254, 5492572376, 9415296, 9411376571 ####[facility] (DEFAULT)[address] [place] [address] 49707 Basophils/100 WBC (Bld) 0.0 % Low 0.2-2.0 [facility] Comment on above: Performed By: #### 1 [id number], 98173804, 0756425851, 3953262002, 1995040, 1444086076 ####[facility] (DEFAULT)[address] [place] [address] 53848 Eos Abs# 0.0 x10 Normal 0.0-0.4 [facility] Comment on above: Performed By: #### 1 [id number], 05230598, 9656241309, 9021369903, 6796574, 4765040177 ####[facility] (DEFAULT)[address] [place] [address] 04752 Eosinophils/100 WBC (Bld) 0.0 % Low 0.9-4.0 [facility] Comment on above: Performed By: #### 1 [id number], 40868517, 1681695382, 8594348771, 7028156, 1472581440 ####[facility] (DEFAULT)[address] [place] [address] 63320 Lymph Abs# 1.9 x10 Normal 1.3-2.9 [facility] Comment on above: Performed By: #### 1 [id number], 11914907, 2892647254, 1541114217, 5500409, 6406454032 ####[facility] (DEFAULT)[address] [place] [address] 95291 Lymphocytes/100 WBC (Bld) 10 % Low 14-48 [facility] Comment on above: Performed By: #### 1 [id number], 26435578, 3735534374, 7973511184, 5800889, 5965526093 ####[facility] (DEFAULT)[address] [place] [address] 93500 [place] Abs# 1.9 x10 High 0.0-0.8 [facility] Comment on above: Performed By: #### 1 [id number], 94526850, 0991624148, 1503575129, 5942556, 8235577773 ####[facility] (DEFAULT)[address] [place] [address] 32816 Neut Abs# 16.2 x10 High 1.5-9.2 [facility] Comment on above: Performed By: #### 1 [id number], 10332953, 9135868478, 0824025393, 1712868, 9361730640 ####[facility] (DEFAULT)[address] [place] [address] 27258 Neutrophils/100 WBC (Bld) 81 % Normal 44-88 [facility] Comment on above: Performed By: #### 1 [id number], 47257805, 7237879889, 4733719379, 3599117, 3574247093 ####[facility] (DEFAULT)[address] [place] [address] 61800 CBC w/ Auto Diffon 2 Erythrocyte distribution width (RBC) [Ratio] 13.5 % Normal 11.5-15.0 [facility] Comment on above: Performed By: #### 1 [id number], 22470087, 2897259642, 6829901220, 4585045, 0094855812 ####[facility] (DEFAULT)[address] [place] [address] 71428 Hematocrit (Bld) [Volume fraction] 40.5 % Normal 34.8-51.9 [facility] Comment on above: Performed By: #### 1 [id number], 58780818, 9443364340, 3506385331, 2503484, 8440583422 ####[facility] (DEFAULT)[address] [place] [address] 73999 Hemoglobin (Bld) [Mass/Vol] 12.8 g/dL Normal 11.8-17.7 [facility] Comment on above: Performed By: #### 1 [id number], 34610738, 5830194797, 9108145510, 4760187, 2275837111 ####[facility] (DEFAULT)[address] [place] [address] 49796 Instr WBC 20.1 x10 Invalid Interpretation Code [facility] Comment on above: Performed By: #### 1 [id number], 33810007, 2432274982, 5390975120, 5029662, 9219591627 ####[facility] (DEFAULT)[address] [place] [address] 96447 Man Diff? Auto Normal [facility] Comment on above: Performed By: #### 1 [id number], 01928462, 9046497332, 7280932322, 3593660, 5837378982 ####[facility] (DEFAULT)[address] [place] [address] 08193 MCH (RBC) [Entitic mass] 30 pg Normal 24-34 [facility] Comment on above: Performed By: #### 1 [id number], 15690420, 8127150500, 3944226353, 6719750, 2811447045 ####[facility] (DEFAULT)[address] [place] [address] 40631 MCHC (RBC) [Mass/Vol] 32 g/dL Normal 26-37 [facility] Comment on above: Performed By: #### 1 [id number], 64772277, 2603486355, 0882536715, 3410797, 1594771686 ####[facility] (DEFAULT)[address] [place] [address] 63728 MCV (RBC) [Entitic vol] 96 fL Normal 81-100 [facility] Comment on above: Performed By: #### 1 [id number], 82583127, 5875779850, 0790711970, 0851077, 3210781975 ####[facility] (DEFAULT)[address] [place] [address] 84627 Platelet 275 x10 Normal 138-427 [facility] Comment on above: Performed By: #### 1 [id number], 56308414, 7954042793, 7581011687, 7517420, 8276345189 ####[facility] (DEFAULT)[address] [place] [address] 59222 Platelet mean volume (Bld) [Entitic vol] 10.3 fL High 6.3-10.2 [facility] Comment on above: Performed By: #### 1 [id number], 83162095, 0821372797, 9146876801, 6118129, 2915303832 ####[facility] (DEFAULT)[address] [place] [address] 10595 RBC 4.24 x10 Normal 3.70-5.30 [facility] Comment on above: Performed By: #### 1 [id number], 87161111, 4402304736, 7722801478, 0305243, 8813845020 ####[facility] (DEFAULT)[address] [place] [address] 84666 WBC 20.1 x10 High 3.5-10.5 [facility] Comment on above: Result Comment: Slid e Reviewed Performed By: #### 1 [id number], 53362368, 0400962183, 8016508035, 5563457, 1039454178 ####[facility] (DEFAULT)[address] [place] [address] 89031 Electrolyte Panel Standardon 03-03-2021 Anion gap [Moles/Vol] 17.0 mmol/L Normal 5.0-19.0 [facility] Comment on above: Performed By: #### 1 [id number], 44943084, 7818922467, 4185831195, 9912446, 8157145312 ####[facility] (DEFAULT)[address] [place] [address] 49188 Chloride [Moles/Vol] 97 mmol/L Low 101-111 [facility] Comment on above: Performed By: #### 1 [id number], 05408340, 0441920900, 8234232514, 2216089, 9245169520 ####[facility] (DEFAULT)[address] [place] [address] 48468 CO2 [Moles/Vol] 26 mmol/L Normal 21-32 [facility] Comment on above: Performed By: #### 1 [id number], 00507758, 8179765068, 4881024191, 0912351, 4378683452 ####[facility] (DEFAULT)[address] [place] [address] 98017 Potassium [Moles/Vol] 3.9 mmol/L Normal 3.6-5.1 [facility] Comment on above: Performed By: #### 1 [id number], 30655243, 2060621181, 0241711421, 3235564, 3444325929 ####[facility] (DEFAULT)[address] [place] [address] 24463 Sodium [Moles/Vol] 136.0 mmol/L Normal 136.0-144.0 [facility] Comment on above: Performed By: #### 1 [id number], 98368573, 5230861049, 6326198109, 7181618, 2907996940 ####[facility] (DEFAULT)[address] [place] [address] 05816 Extra Greenon 03-03-2021 Tube Collected Yes Invalid Interpretation Code [facility] Comment on above: Performed By: #### 1 [id number], 22289861, 9014107997, 4420763627, 4956588, 4816302338 ####[facility] (DEFAULT)[address] [place] [address] 56587 Inpatient Patient Summaryon 03-03-2021 Inpatient Patient Summary [address] [address] Patient Discharge Instructions Name: JHONZAINA MCKEON : 1950 Patient Address: [address] [place] [address] Primary Care Provider: Name: Jeannine Hurley After you are discharged if you find you have any questions, please, call [phone] ext [phone] to speak to a nurse. Discharge Diagnosis: [...] alcohol and/or drug addiction problems; contact the [facility] 05/09 Crisis Hotline -text [id number] sb [phone]. If you received any narcotics, sedation, or [...] business decisions or sign any legal documents [facility] would like to thank you for allowing us to assist you with your healthcare needs. The following includes patient education materials and information regarding your injury/illness. ZAINA WINTERS has been given the following list of follow-up instructions, prescriptions, and patient education materials: Follow-up Instructions With: Address: When: Marina Redd [address] [place] [address], [address] [place] [address] Business (1) 03/15/2021 10:30 AM With: Address: When: Jeannine Evangelista [facility] [place] [address] Business (1) Medications During the course of [...] 0.5 mg oral (more content not included)... [facility] Postoperative Record [facility] Phase II Record Summary Primary Physician: DAVID AWAD Finalized Date/Time: 03/03/21 08:37:51 Pt. Name: ZAINA WINTERS/Sex: 1950 MALE Med Rec #: [id number] Physician: DAVID AWAD Financial #: [id number] Pt. Type: O Room/Bed: [facility]/1 Admit/Disch: 03/02/21 05:52:00 - Institution: Phase II [...] Signed By: Vianca Celaya RN 03/03/21 08:37 [facility] Nutrition Noteon 03-03-2021 Nutrition Note Pt admitted for scheduled Lt total knee surgery. Diet advanced to 3000kcal DM, along w/ usual post op vitamins/minerals and oral nutritional supplements; adjusted by feature writer to 2000kcal to better meet nutritional needs without overcompensating. Labs reviewed, BS 138-177mg/dl ideal post op. Pt at high nutrition risk r/t age greater than 65y, however, no immediate nutrition concerns at this time. Will monitor for changes. [facility] Anesthesia Noteon 03-02-2021 Anesthesia Note Patient: [...] on: 03/02/2021 12:40 EST] Dre Santos DO [facility] Anesthesia Note Patient: ZAINA WINTERS Age: 70 [...] = 20 mL, 100 mL/hr, IV Piggyback, Hematology Nurse tranexamic acid: 1,000 mg = 100 mL, 300 mL/hr, IV Piggyback, Hematology Nurse tranexamic acid: 1,000 mg = 100 mL, 300 mL/hr, IV Piggyback, Hematology Nurse Documented Medications Documented Eliquis 5 mg oral [...] All Problems Atrial fibrillation / SNOMED CT 94701223 / Confirmed COVID-19 / SNOMED CT 6121730075 / Confirmed Diabetes / SNOMED CT 307848488 / Confirmed FH: hypertension / SNOMED CT 677908170 / Confirmed 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 Comments: 02/04/2021 10:08 Oliva Van RN surgery [...] review ECG interpretation: Normal sinus rhythm. Plan [place] [employer]hesiologists#(A SA) physical status classification: [...] EST] Aiden Santos (more content not included)... [facility] MAGR Intraoperative Recordon 03-02-2021 MAG[facility] Intraoperative Record MAGR Intra-Op Record Summary Primary Physician: Finalized Date/Time: 03/02/21 08:23:07 Pt. Name: ZAINA WINTERS/Sex: 1950 MALE Med Rec #: [id number] Physician: DAVID AWAD Financial #: [id number] Pt. Type: D Room/Bed: / Admit/Disch: 03/02/21 [...] Draper, Lora RN Role Performed Anesthesiologist of Fire Fighter Fire Fighter Record Time In 03/02/21 07:33:00 03/02/21 07:33:00 [...] Primary Procedure Yes Primary Surgeon Dre Santos Left Surgeon Comment ADDUCTOR CANAL BLOCK Start [...] Airway Device Na (more content not included)... [facility] MAGR PACU Recordon 2 MAGR PACU Record MAGR PACU Record Summary Primary Physician: DAVID AWAD Finalized Date/Time: 03/02/21 13:11:26 Pt. Name: ZAINA WINTERS./Sex: 1950 MALE Med Rec #: [id number] Physician: DAVID AWAD Financial #: [id number] Pt. Type: D Room/Bed: 231/1 Admit/Disch: 03/02/21 [...] Signed By: Rosy Gaxiola RN 03/02/21 13:11 [facility] MAGR Preoperative Recordon 0 03-02-2021 MAGR Preoperative Record MAGR Pre-Op Record Summary Primary Physician: DAVID AWAD Finalized Date/Time: 03/02/21 08:24:03 Pt. Name: ZAINA WINTERS./Sex: 1950 MALE Med Rec #: [id number] Physician: DAVID AWAD Financial #: [id number] Pt. Type: D Room/Bed: / Admit/Disch: 03/02/21 [...] consent correct. General Comments: Pt [facility] to [facility] ambulatory. Pt has #7 pain in left knee, Pt denies cp, cough or flu like symptoms. Pt is sob with ambulation which is normal. Pt denies pacemaker/defibillat or or sleep apnea. Finalized By: Rita Molina RN Document Signatures Signed By: Rita Molina RN 03/02/21 08:24 Normal [facility] POCT Glucose Levelon 022 Glucose [Mass/Vol] 177 mg/dL [address] [facility] Comment on above: Performed By: #### 4 [id number] #### [facility] (DEFAULT) [address] [place] [address] Glucose [Mass/Vol] 138 mg/dL [address] Comment on above: Performed By: #### 4 [id number] ####[facility] (DEFAULT)[address] [place] [address] Patient Handouton 03-02-2021 Patient Handout POST OPERATIVE [...] #8 follow up in office with physician executive personal assistant Justo Redd as scheduled #9 NOMS [...] the nearest hospital's emergency services department. Normal [facility] XR Knee One or Two Views [...] MD 03/02/21 1:56 pm Technologist: Evelia ESCOBAR [facility] 2019 Novel Coronavirus (CoVI D-19), JULISSA LCon 03-01-2021 SARS-CoV-2 (COVID-19) RNA JULISSA+probe Ql (Unsp spec) Not detected Invalid Interpretation Code Not Detected [facility] Comment on above: Order Comment: [id number] Result Comment: This nucleic acid amplification test was developed and its performance characteristics determined by [employer]. Nucleic acid amplification tests include RT- PCR [...] detected) result in this assay. Performed At: [address] [id number] Zay Landa PhD Ph:[phone] Performed By: #### 1 [id number], [id number] #### [facility] (DEFAULT) [address] [place] [address] Progress Note - Nurseon 02-13 Progress Note - Nurse Pre-op call for 03-02-2021 surgery made- patient informed of arrival time of 0600 tomorrow ,NPO after midnight except for any medication that he was instructed to take in morning, hibiclens shower x2-patient with understanding. [Electronically Signed on: 03/01/2021 09:42 EST] Rita Molina RN [Verified on: 03/01/2021 09:42 EST] Rita Molina RN [facility] Progress Note - Nurseon 12-2 Progress Note - Nurse PAT review done per Dr. Mccauley, no orders received. [Electronically Signed on: 02/08/2021 10:37 EST] Oliva Rabago RN [Verified on: 02/08/2021 10:37 EST] Oliva Rabago RN Normal [facility] .Auto Diff 02-04-2021 Auto [place] % 10 % Normal 02-24 [facility] Comment on above: Performed By: #### 1 [id number], [id number], [id number] ####[facility] (DEFAULT)[address] [place] [address] Baso Abs# 0.0 x10 Normal 0.0-0.2 [facility] Comment on above: Performed By: #### 1 [id number], [id number], [id number] ####[facility] (DEFAULT)[address] [place] [address] Basophils/100 WBC (Bld) 0.3 % Normal 0.2-2.0 [facility] Comment on above: Performed By: #### 1 [id number], [id number], [id number] ####[facility] (DEFAULT)[address] [place] [address] Eos Abs# 0.1 x10 Normal 0.0-0.4 [facility] Comment on above: Performed By: #### 1 [id number], [id number], [id number] ####[facility] (DEFAULT)[address] [place] [address] Eosinophils/100 WBC (Bld) 1.1 % Normal 0.9-4.0 [facility] Comment on above: Performed By: #### 1 [id number], [id number], [id number] ####[facility] (DEFAULT)[address] [place] [address] Lymph Abs# 2.0 x10 Normal 1.3-2.9 [facility] Comment on above: Performed By: #### 1 [id number], [id number], [id number] ####[facility] (DEFAULT)[address] [place] [address] Lymphocytes/100 WBC (Bld) 27 % Normal 14-48 [facility] Comment on above: Performed By: #### 1 [id number], [id number], [id number] ####[facility] (DEFAULT)[address] [place] [address] [place] Abs# 0.7 x10 Normal 0.0-0.8 [facility] Comment on above: Performed By: #### 1 [id number], [id number], [id number] ####[facility] (DEFAULT)[address] [place] [address] Neut Abs# 4.5 x10 Normal 1.5-9.2 [facility] Comment on above: Performed By: #### 1 [id number], [id number], [id number] ####[facility] (DEFAULT)[address] [place] [address] Neutrophils/100 WBC (Bld) 62 % Normal 44-88 [facility] Comment on above: Performed By: #### 1 [id number], [id number], [id number] ####[facility] (DEFAULT)[address] [place] [address] Standard 02-04-2021 eGFR Non AA >60 Invalid Interpretation Code [facility] Comment on above: Performed By: #### 1 [id number], [id number], [id number] ####[facility] (DEFAULT)[address] [place] [address] eGFR AA >60 Invalid Interpretation Code [facility] Comment on above: Result Comment: National Sales Executive korina Kidney disease could be indicated at eGFRs of less than 60 ml/min/1.73m2. Kidney Failure is indicated at less than 15 ml/min/1.73m2 Performed By: #### 1 [id number], [id number], [id number] ####[facility] (DEFAULT)[address] [place] [address] Anion gap [Moles/Vol] 14.0 mmol/L Normal 5.0-19.0 [facility] Comment on above: Performed By: #### 1 [id number], [id number], 4871325 ####[facility] (DEFAULT)[address] [place] [address]85 Calcium [Mass/Vol] 9.5 mg/dL Normal 8.9-10.3 [facility] Comment on above: Performed By: #### 1 [id number], [id number], [id number] ####[facility] (DEFAULT)[address] [place] [address] 75195 Chloride [Moles/Vol] 99 mmol/L Low 101-111 [facility] Comment on above: Performed By: #### 1 [id number], [id number], [id number] ####[facility] (DEFAULT)[address] [place] [address] 63543 CO2 [Moles/Vol] 28 mmol/L Normal 21-32 [facility] Comment on above: Performed By: #### 1 [id number], [id number], 8586897 ####[facility] (DEFAULT)[address] [place] [address] 12081 Creatinine [Mass/Vol] 0.89 mg/dL Low 0.90-1.30 [facility] Comment on above: Performed By: #### 1 [id number], [id number], [id number] ####[facility] (DEFAULT)[address] [place] [address] 30599 Glucose [Mass/Vol] 135.0 mg/dL High 74.0-118.0 [facility] Comment on above: Performed By: #### 1 [id number], [id number], 6031192 ####[facility] (DEFAULT)[address] [place] [address]482 Osmolality 278 mOsm/L Invalid Interpretation Code [facility] Comment on above: Performed By: #### 1 [id number], [id number], 5456632 ####[facility] (DEFAULT)[address] [place] [address]165 Potassium [Moles/Vol] 4.1 mmol/L Normal 3.6-5.1 [facility] Comment on above: Performed By: #### 1 [id number], [id number], 5492496 ####[facility] (DEFAULT)[address] [place] [address] Sodium [Moles/Vol] 137.0 mmol/L Normal 136.0-144.0 [facility] Comment on above: Performed By: #### 1 [id number], [id number], 3454415 ####[facility] (DEFAULT)[address] [place] [address] 87653 Urea nitrogen [Mass/Vol] 19 mg/dL Normal 8-26 [facility] Comment on above: Performed By: #### 1 [id number], [id number], 8469826 ####[facility] (DEFAULT)[address] [place] [address] Urea nitrogen/Creatinine [Mass ratio] 21.0 mg/mg High 4.6-16.2 [facility] Comment on above: Performed By: #### 1 [id number], [id number], [id number] ####[facility] (DEFAULT)[address] [place] [address] CBC w/ Auto Diffon Erythrocyte distribution width (RBC) [Ratio] 13.4 % Normal 11.5-15.0 [facility] Comment on above: Performed By: #### 1 [id number], 78928976, 7461556 ####[facility] (DEFAULT)[address] [place] [address] Hematocrit (Bld) [Volume fraction] 48.0 % Normal 34.8-51.9 [facility] Comment on above: Performed By: #### 1 [id number], [id number], 5760219 ####[facility] (DEFAULT)[address] [place] [address] 57262 Hemoglobin (Bld) [Mass/Vol] 15.5 g/dL Normal 11.8-17.7 [facility] Comment on above: Performed By: #### 1 [id number], 09462090, 5666135 ####[facility] (DEFAULT)[address] [place] [address] 41951 Instr WBC 7.3 x10 Invalid Interpretation Code [facility] Comment on above: Performed By: #### 1 [id number], [id number], 0511962 ####[facility] (DEFAULT)[address] [place] [address] 40265 Man Diff? Auto Normal [facility] Comment on above: Performed By: #### 1 [id number], [id number], 1573214 ####[facility] (DEFAULT)[address] [place] [address] 54520 MCH (RBC) [Entitic mass] 30 pg Normal 24-34 [facility] Comment on above: Performed By: #### 1 [id number], 75836650, 2361187 ####[facility] (DEFAULT)[address] [place] [address] 05708 MCHC (RBC) [Mass/Vol] 32 g/dL Normal 26-37 [facility] Comment on above: Performed By: #### 1 [id number], 61980580, 3185929 ####[facility] (DEFAULT)[address] [place] [address] 97925 MCV (RBC) [Entitic vol] 94 fL Normal 81-100 [facility] Comment on above: Performed By: #### 1 [id number], 20501728, 2169292 ####[facility] (DEFAULT)[address] [place] [address] 70248 Platelet 196 x10 Normal 138-427 [facility] Comment on above: Performed By: #### 1 [id number], 40894064, 8604016 ####[facility] (DEFAULT)[address] [place] [address] 97391 Platelet mean volume (Bld) [Entitic vol] 10.3 fL High 6.3-10.2 [facility] Comment on above: Performed By: #### 1 [id number], 32574537, 5507355 ####[facility] (DEFAULT)[address] [place] [address] 65731 RBC 5.13 x10 Normal 3.70-5.30 [facility] Comment on above: Performed By: #### 1 [id number], 29431392, 4069437 ####[facility] (DEFAULT)[address] [place] [address] 21473 WBC 7.3 x10 Normal 3.5-10.5 [facility] Comment on above: Performed By: #### 1 [id number], 67997307, 7073196 ####[facility] (DEFAULT)[address] [place] [address] UA w Culture if Ind Standard on 02-04-2021 Breakpoint UA [facility] Comment on above: Performed By: #### 1 [id number] #### [facility] (DEFAULT) [address] [place] [address] Color (U) Yellow [facility] Comment on above: Performed By: #### 1 [id number] #### [facility] (DEFAULT) [address] [place] [address] Culture? No [facility] Comment on above: Result Comment: Resu lt created by rule GL_MAGR_ADD_UA_CULT1 Result created by rule GL_MAGR_ADD_UA_CULT1 Performed By: #### 1 [id number] #### [facility] (DEFAULT) [address] [place] [address] Glucose (U) [Mass/Vol] Negative [facility] Comment on above: Performed By: #### 1 [id number] #### [facility] (DEFAULT) [address] [place] [address] Ketones Ql (U) Negative [facility] Comment on above: Performed By: #### 1 [id number] #### [facility] (DEFAULT) [address] [place] [address]2066 Micro? Not Indicated [facility] Comment on above: Result Comment: Resu lt created by rule GL_MAGR_ADD_UA_MICRO Performed By: #### 1 [id number] #### [facility] (DEFAULT) [address] [place] [address]01 UA Bilirubin Negative [facility] Comment on above: Performed By: #### 1 [id number] #### [facility] (DEFAULT) [address] [place] [address] 00732 UA Blood Negative Normal NEGATIVE [facility] Comment on above: Performed By: #### 1 [id number] #### [facility] (DEFAULT) [address] [place] [address] 15604 UA Clarity CLEAR Normal CLEAR [facility] Comment on above: Performed By: #### 1 [id number] #### [facility] (DEFAULT) [address] [place] [address] 81098 UA Leuk Est Negative Normal NEGATIVE [facility] Comment on above: Performed By: #### 1 [id number] #### [facility] (DEFAULT) [address] [place] [address] 72435 UA Nitrite Negative Normal NEGATIVE [facility] Comment on above: Performed By: #### 1 [id number] #### [facility] (DEFAULT) [address] [place] [address] 20852 UA pH 6.0 Normal 5-8 [facility] Comment on above: Performed By: #### 1 [id number] #### [facility] (DEFAULT) [address] [place] [address] 27032 UA Protein Negative Normal NEGATIVE [facility] Comment on above: Performed By: #### 1 [id number] #### [facility] (DEFAULT) [address] [place] [address] 39291 UA Spec Grav >=1.030 Normal 1.001-1.035 [facility] Comment on above: Performed By: #### 1 [id number] #### [facility] (DEFAULT) [address] [place] [address] 84243 UA Urobilinogen 0.2 mg/dL Normal 0.2-1.0 [facility] Comment on above: Performed By: #### 1 [id number] #### [facility] (DEFAULT) [address] [place] [address] 27321 Urine Source Clean Catch Normal [facility] Comment on above: Performed By: #### 1 [id number] #### [facility] (DEFAULT) [address] [place] [address] 21737 XR Bone Length Studies Scano geraldine 02-04-2021 XR Bone Length Studies Scanograms EXAM: [...] John Mckenna MD 02/08/21 7:27 am Technologist: [facility] Echo 2D w doppler w color co mpleteOrdered By: Ej Foster on 09-23-2020 [facility] Transthoracic Echocardiography Report (TTE) Patient Name HEBERLING Date of Study 09/23/2020 ZAINA Morales Date of 1950 Gender Male Age 69 year(s) Race Room Number Height: 72 inch, 182.88 cm Corporate ID [id number] Weight: 288 pounds, 130.6 kg # Patient Acct [id number] BSA: 2.49 m^2 BMI: 39.06 # kg/m^2 MR # [id number] [employer] Debi Lopez Interpreting Physician Ej Foster Fellow Referring Nurse Practitioner Interpreting Referring Physician Ej Foster Fellow Type of Study TTE procedure:2D Echocardiogram, M-Mode, Doppler, Color Doppler. Procedure Date Date: 09/23/2020 Start: 11:32 AM Study Location: [facility] Indications:Atrial fibrillation. History / Tech. Comments: A [...] TR Velocity: 2.17 m/s Peak TR Gradient: 18.28057 mmHg Estimated RA Pressure: 3 mmHg Estimated PASP: 21.79 mmHg Diastology / Tissue Doppler Lateral Wall E' velocity:0.07 m/s Lateral Wall E/E':7.23 [facility] Work Phone: Shankar, pn Incoming Cardio Results From [employer] - 09/23/2020 5:27 PM EDT [facility] Transthoracic Echocardiography Report (TTE) Patient Name SINGH Date of Study 09/23/2020 ZAINA Morales Date of 1950 Gender Male Age 69 year(s) Race Room Number Height: 72 inch, 182.88 cm Corporate ID [id number] Weight: 288 pounds, 130.6 kg # Patient Acct [id number] BSA: 2.49 m^2 BMI: 39.06 # kg/m^2 MR # [id number] [employer] Debi Lopez Interpreting Physician Ej Foster Fellow Referring Nurse Practitioner Interpreting Referring Physician Ej Foster Type of Study TTE procedure:2D Echocardiogram, M-Mode, Doppler, Color Doppler. Procedure Date Date: 09/23/2020 Start: 11:32 AM Study Location: [facility] Indications:Atrial fibrillation. History / Tech. Comments: Naty [...] TR Velocity: 2.17 m/s Peak TR Gradient: 18.71579 mmHg Estimated RA Pressure: 3 mmHg Estimated PASP: 21.79 mmHg Diastology / Tissue Doppler Lateral Wall E' velocity:0.07 m/s Lateral Wall E/E':7.23 [facility] [email or web address] Work Phone: [facility] Work Phone: Basic Metabolic Panel 02-14 Anion gap [Moles/Vol] 10 mmol/L 9 - 17 mmol/L [facility], [place] Bun/Cre Ratio 21 High [facility], [place] Calcium [Mass/Vol] 9.7 mg/dL 8.6 - 10. 4 mg/dL [facility] Chloride [Moles/Vol] 101 mmol/L 98 - 10 7 mmol/L [facility] CO2 [Moles/Vol] 28 mmol/L 20 - 31 mmol/L [facility] Creatinine [Mass/Vol] 0.89 mg/dL 0.7 - 1.2 mg/dL [facility], [place] GFR >60 >60 mL/min [place], [place] GFR Non- >60 >60 mL/min [place], [place] Glucose [Mass/Vol] 101 mg/dL High 70 - 99 mg/dL [place], [place] Interpretation and review of laboratory results Abnormal [place] Potassium [Moles/Vol] 4.3 mmol/L 3.7 - 5.3 mmol/L [place] Sodium [Moles/Vol] 139 mmol/L 135 - 144 mmol/L [place] Urea nitrogen [Mass/Vol] 19 mg/dL 8 - 23 mg/dL [place] Lipid Panelon 03-10-2020 Cholesterol [Mass/Vol] 162 mg/dL <200 [place] Comment on above: Cholesterol Guidelines: <200 Desirable 200-240 Borderline >240 Undesirable Cholesterol in HDL [Mass/Vol] 41 mg/dL >40 [place] Comment on above: HDL Guidelines: <40 Undesirable 40-59 Borderline >59 Desirable Cholesterol in LDL [Mass/Vol] 102 mg/dL 0 - 130 mg/dL [place] Comment on above: LDL Guidelines: <100 Desirable 100-129 Near to/above Desirable 130-159 Borderline >159 Undesirable Direct (measured) LDL and calculated LDL are not interchangeable tests. Cholesterol in VLDL [Mass/Vol] NOT REPORTED 1 - 30 mg/dL [place] Cholesterol.total/Ch olesterol in HDL [Mass ratio] 4 {ratio} <5 [place] Triglyceride [Mass/Vol] 97 mg/dL <150 [place] Comment on above: Triglyceride Guidelines: <150 Desirable 150-199 Borderline 200-499 High >499 Very high Based on AHA Guidelines for fasting triglyceride, November 2011. Metabolic Panelon 03-10-2020 GFR/1.73 sq M predicted among non-blacks MDRD (S/P/Bld) [Vol rate/Area] [place], [place] Comment on above: Stage 1: Some [...] body mass. Additional eGFR calculator available at: http://www.[employer]/multiple_crcl_2012.htm Basic Metabolic Panelon Anion gap [Moles/Vol] 9 mmol/L 9 - 17 mmol/L [place] Bun/Cre Ratio 16 [place], [place] Calcium [Mass/Vol] 9.6 mg/dL 8.6 - 10. 4 mg/dL [place] Chloride [Moles/Vol] 101 mmol/L 98 - 10 7 mmol/L [place] CO2 [Moles/Vol] 29 mmol/L 20 - 31 mmol/L [place] Creatinine [Mass/Vol] 0.76 mg/dL 0.7 - 1.2 mg/dL [place] GFR >60 >60 mL/min [place] GFR Non- >60 >60 mL/min [place] Glucose [Mass/Vol] 118 mg/dL High 70 - 99 mg/dL [place] Interpretation and review of laboratory results Abnormal [place] Potassium [Moles/Vol] 4.7 mmol/L 3.7 - 5.3 mmol/L [place] Sodium [Moles/Vol] 139 mmol/L 135 - 144 mmol/L [place] Urea nitrogen [Mass/Vol] 12 mg/dL 8 - 23 mg/dL [place] CBCon 01-22-2020 Erythrocyte distribution width (RBC) [Ratio] 14.2 % 11.8 - 14.4 % [place] Hematocrit (Bld) [Volume fraction] 43.4 % 40.7 - 50.3 % [place] Hemoglobin (Bld) [Mass/Vol] 13.4 g/dL 13 - 17 g/dL [place] MCH (RBC) [Entitic mass] 28.9 pg 25.2 - 33.5 pg [place] MCHC (RBC) [Mass/Vol] 30.9 g/dL 28.4 - 34.8 g/dL [place] MCV (RBC) [Entitic vol] 93.7 fL 82.6 - 102.9 fL [place], [place] Platelet mean volume (Bld) [Entitic vol] 9.9 fL 8.1 - 13.5 fL [place], [place] Platelets (Bld) [#/Vol] 217 10*3/uL [place] RBC (Bld) [#/Vol] 4.63 10*6/uL 4.21 - 5.7 7 m/uL [place] WBC (Bld) [#/Vol] 0.0 10*3/uL 0.0 per 10 0 WBC [place] WBC (Bld) [#/Vol] 5.7 10*3/uL [place] ECHO Complete 2D W Doppler W Coloron 01-22-2020 [facility] Transthoracic Echocardiography Report (TTE) Patient Name JHONBERASHTYN Date of Study 01/22/2020 ZAINA Morales Date of 1950 Gender Male Age 69 year(s) Race Room Number Height: 73 inch, 185.42 cm Corporate ID [id number] Weight: 273 pounds, 123.8 kg # Patient Acct [id number] BSA: 2.46 m^2 BMI: 36.02 # kg/m^2 MR # [id number] Grape Pruner Work,Nini Interpreting Physician Ej Foster Fellow Referring Nurse Practitioner Interpreting Referring Physician Ej Foster Fellow Type of Study TTE procedure:2D Echocardiogram, M-Mode, Doppler, Color Doppler. Procedure Date Date: 01/22/2020 Start: 09:22 AM Study Location: [facility] Indications:Atrial fibrillation, Dyspnea/SOB and History of COVID-19. [...] Wall E' velocity:0.11 m/s Lateral Wall E/E':6.91 [facility], [place] Shankar, Mhpn Incoming [facility] - 01/22/2020 5:08 PM EST [facility] Transthoracic Echocardiography Report (TTE) Patient Name SINGH Date of Study 01/22/2020 ZAINA Morales Date of 1950 Gender Male Age 69 year(s) Race Room Number Height: 73 inch, 185.42 cm Corporate ID [id number] Weight: 273 pounds, 123.8 kg # Patient Acct [id number] BSA: 2.46 m^2 BMI: 36.02 # kg/m^2 MR # [id number] Grape Pruner Nini Todd Interpreting Physician Ej Foster Referring Nurse Practitioner Interpreting Referring Physician Ej Foster Type of Study TTE procedure:2D Echocardiogram, M-Mode, Doppler, Color Doppler. Procedure Date Date: 01/22/2020 Start: 09:22 AM Study Location: [facility] Indications:Atrial fibrillation, Dyspnea/SOB and History of COVID-19. [...] Wall E' velocity:0.11 m/s Lateral Wall E/E':6.91 [place] Hemoglobin A1Con 01-22-2020 Glucose [Mass/Vol] 123 mg/dL [place] Comment on above: The ADA and AACC rec ommend providing the estimated average glucose result to permit better patient understanding of their HBA1c result. HbA1c (Bld) [Mass fraction] 5.9 % 4 - 6 % [place] Metabolic Panelon 01-22-2020 GFR/1.73 sq M predicted among non-blacks MDRD (S/P/Bld) [Vol rate/Area] [place], [place] Comment on above: Stage 1: Some [...] body mass. Additional eGFR calculator available at: http://www.[employer]/multiple_crcl_2012.htm Troponin Ion 01-22-2020 Troponin I.cardiac [Mass/Vol] NOT REPORTED [place] Troponin T.cardiac [Mass/Vol] NOT REPORTED <0.03 ng/mL [place] Troponin, High Sensitivity 15 ng/L 0 - 22 ng/L [place] Comment on above: High Sensitivity Troponin values cannot be compared with other Troponin methodologies. Patients with high levels of Biotin oral intake (i.e >5mg/day) may have falsely decreased Troponin levels. Samples collected within 8 hours of biotin intake may require additional information for diagnosis. BNPon 12-16-2019 Natriuretic peptide B (Bld) [Mass/Vol] 595.0 pg/mL Normal <=900.0 [facility] Comment on above: Performed By: #### T ROP, BNP, CMP, CRP #### [facility] [address], [place] [address] Cheryl Zarina CBC AUTO DIFFon 12-16-2019 Basophils (Bld) [#/Vol] 0.0 103/ul Normal 0.0-0.1 [facility] Comment on above: Performed By: #### C BC #### [facility] [address], [place] [address] Cheryl Zarina Basophils/100 WBC (Bld) 0.1 % Critically low 0.2-2.0 [facility] Comment on above: Performed By: #### C BC #### [facility] [address], [place] [address] Cheryl Zarina Eosinophils (Bld) [#/Vol] 0.0 103/ul Normal 0.0-0.7 [facility] Comment on above: Performed By: #### C BC #### [facility] [address], [place] [address] Cheryl Zarina Eosinophils/100 WBC (Bld) 0.0 % Critically low 0.9-7.0 [facility] Comment on above: Performed By: #### C BC #### [facility] [address] [place] [id number] Cheryl Zarina Erythrocyte distribution width (RBC) [Ratio] 12.9 % Normal 11.0-15.0 [facility] Comment on above: Performed By: #### C BC #### [facility] [address] [id number] Cheryl Zarina Hematocrit (Bld) [Volume fraction] 45.2 % Normal 42.0-54.0 [facility] Comment on above: Performed By: #### C BC #### [facility] [address] [place] [address] Cheryl Zarina Hemoglobin (Bld) [Mass/Vol] 15.1 g/dL Normal 14.0-18.0 [facility] Comment on above: Performed By: #### C BC #### [facility] [address] [place] [address] Cheryl Zarina IG # 0.06 10e3/ul Critically high 0.00-0.03 [facility] Comment on above: Performed By: #### C BC #### [facility] [address] [place], [place] [address] Cheryl Zarina IG % 0.6 % Critically high 0.0-0.5 [facility] Comment on above: Performed By: #### C BC #### [facility] [address] [place], [place] [id number] Cheryl Zarina Lymphocytes (Bld) [#/Vol] 1.0 103/ul Critically low 1.2-3.8 [facility] Comment on above: Performed By: #### C BC #### [facility] [address] [place], [place] [address] Cheryl Zarina Lymphocytes/100 WBC (Bld) 10.1 % Critically low 20.5-60.0 [facility] Comment on above: Performed By: #### C BC #### [facility] [address] [place], [place] [address] Cheryl Zarina MANUAL DIFF REQ NO Normal [facility] Comment on above: Performed By: #### C BC #### [facility] [address], [place] [address] Cheryljason Menaen MCH (RBC) [Entitic mass] 30.0 pg Normal 25.9-34.0 [facility] Comment on above: Performed By: #### C BC #### [facility] [address] [place] [address] Cheryljason Srinivasan MCHC (RBC) [Mass/Vol] 33.4 g/dL Normal 29.9-35.2 [facility] Comment on above: Performed By: #### C BC #### [facility] [address] [place] [address] Cheryl Zarina MCV (RBC) [Entitic vol] 89.7 fL Normal 80.0-94.0 [facility] Comment on above: Performed By: #### C BC #### [facility] [address] [place], [place] [address] Cheryl Zarina Monocytes (Bld) [#/Vol] 0.3 103/ul Normal 0.3-0.8 [facility] Comment on above: Performed By: #### C BC #### [facility] [address] [place], [place] [address] Cheryl Zarina Monocytes/100 WBC (Bld) 3.4 % Normal 1.7-12.0 [facility] Comment on above: Performed By: #### C BC #### [facility] [address] [place] [address] Cheryl Zarina Neutrophils (Bld) [#/Vol] 8.3 103/ul Critically high 1.4-6.5 [facility] Comment on above: Performed By: #### C BC #### [facility] [address] [place], [place] [address] Cheryl Zarina Neutrophils/100 WBC (Bld) 85.8 % Critically high 43.0-75.0 [facility] Comment on above: Performed By: #### C BC #### [facility] [address] [place] [address] Cheryl Zarina Platelet mean volume (Bld) [Entitic vol] 9.7 fL Normal 9.5-13.5 [facility] Comment on above: Performed By: #### C BC #### [facility] [address], [place] [address] Cheryl Srinivasan Platelets (Bld) [#/Vol] 270 103/ul Normal 150-450 [facility] Comment on above: Performed By: #### C BC #### [facility] [address], [place] [address] Cheryl Srinivasan RBC (Bld) [#/Vol] 5.04 106/ul Normal 4.70-6.10 [facility] Comment on above: Performed By: #### C BC #### [facility] [address] [place], [place] [address] Cheryl Srinivasan WBC (Bld) [#/Vol] 9.7 103/ul Normal 4.0-11.0 [facility] Comment on above: Performed By: #### C BC #### [facility] [address] [place], [place] [address] Cheryl Srinivasan CRPon 12-16-2019 CRP [Mass/Vol] 12.3 mg/dL Critically high <=1.0 [facility] Comment on above: Performed By: #### C BC #### [facility] [address] [place], [place] [address] Cheryl Srinivasan CTA CHEST WO W CONon [...] RUPESH ULRICH Date: 2019-12-16 05:43 Normal [facility] D-DIMERon 12-16-2019 D-DIMER COMMENTS SEE BELOW Normal [facility] Comment on above: Result Comment: Incr [...] By: #### D DIM, PT, PTT #### [facility] [address] [place] [address] Cheryl Srinivasan Fibrin D-dimer FEU IA (Bld) [Mass/Vol] 0.84 ug/mL Critically high 0.19-0.50 [facility] Comment on above: Result Comment: test repeated critcal value verified Performed By: #### D DIM, PT, PTT #### [facility] [address] [place] [address] Cheryl Srinivasan LACTATE/LACTIC ACIDon 2019 Lactate [Moles/Vol] 1.8 mmol/L Normal 0.7-2.0 [facility] Comment on above: Performed By: #### L ACT #### [facility] [address] [place] [address] Cheryl Srinivasan PROF 14(COMP METB)on 020 Albumin [Mass/Vol] 3.2 g/dL Critically low 3.5-5.0 [facility] Comment on above: Performed By: #### T ROP, BNP, CMP, CRP #### [facility] [address] [place] [address] Cheryl Srinivasan Albumin/Globulin [Mass ratio] 0.8 {ratio} Normal [facility] Comment on above: Performed By: #### T ROP, BNP, CMP, CRP #### [facility] [address] [place], [place] [address] Cheryl Zarina ALP [Catalytic activity/Vol] 85 U/L Normal 38-126 [facility] Comment on above: Performed By: #### T ROP, BNP, CMP, CRP #### [facility] [address], [place] [address] Cheryl Zarina ALT [Catalytic activity/Vol] 63 U/L Normal 21-72 [facility] Comment on above: Performed By: #### T ROP, BNP, CMP, CRP #### [facility] [address] [place] [phone] Cheryl Zarina Anion gap [Moles/Vol] 14.2 mmol/L Normal [facility] Comment on above: Performed By: #### T ROP, BNP, CMP, CRP #### [facility] [address] [place] [address] Cheryl Zarina AST [Catalytic activity/Vol] 53 U/L Normal 17-59 [facility] Comment on above: Performed By: #### T ROP, BNP, CMP, CRP #### [facility] [address] [phone] Cheryl Zarina Bilirubin Ql (U) 1.0 mg/dL Normal 0.2-1.3 [facility] Comment on above: Performed By: #### T ROP, BNP, CMP, CRP #### [facility] [address] [place], [place] [address] Cheryl Zarina Calcium [Mass/Vol] 9.0 mg/dL Normal 8.4-10.2 [facility] Comment on above: Performed By: #### T ROP, BNP, CMP, CRP #### [facility] [address] [place], [place] [address] Cheryl Zarina Chloride [Moles/Vol] 96 mmol/L Critically low 98-107 [facility] Comment on above: Performed By: #### T ROP, BNP, CMP, CRP #### [facility] [address] [place] [id number] Cheryl Zarina CO2 [Moles/Vol] 25.8 mmol/L Normal 22.0-30.0 [facility] Comment on above: Performed By: #### T ROP, BNP, CMP, CRP #### [facility] [address] [place] [address] Cheryl Zarina Creatinine [Mass/Vol] 0.90 mg/dL Normal 0.66-1.25 [facility] Comment on above: Performed By: #### T ROP, BNP, CMP, CRP #### [facility] [address] [place] [address] Cheryl Zarina EGFR-AF MONTENEGRIN >60 Normal >=60 [facility] Comment on above: Performed By: #### T ROP, BNP, CMP, CRP #### [facility] [address] [place] [address] Cheryl Zarina EGFR-NON AF MONTENEGRIN >60 Normal >=60 [facility] Comment on above: Performed By: #### T ROP, BNP, CMP, CRP #### [facility] [address] [place] [address] Cheryl Zarina Globulin (S) [Mass/Vol] 4.1 g/dL Normal [facility] Comment on above: Performed By: #### T ROP, BNP, CMP, CRP #### [facility] [address] [place] [address] Cheryl Zarina Glucose [Mass/Vol] 146 mg/dL Critically high 74-106 [facility] Comment on above: Performed By: #### T ROP, BNP, CMP, CRP #### [facility] [address] [place] [address] Cheryl Zarina Potassium [Moles/Vol] 4.0 mmol/L Normal 3.4-5.0 [facility] Comment on above: Performed By: #### T ROP, BNP, CMP, CRP #### [facility] [address] [place] [address] Cheryl Zarina Protein [Mass/Vol] 7.3 g/dL Normal 6.1-8.2 [facility] Comment on above: Performed By: #### T ROP, BNP, CMP, CRP #### [facility] [address] [place] [address] Cheryl Zarina Sodium [Moles/Vol] 132 mmol/L Critically low 137-145 Th [facility] Comment on above: Performed By: #### T ROP, BNP, CMP, CRP #### [facility] [address] [address] Cheryl Zarina Urea nitrogen [Mass/Vol] 18.0 mg/dL Normal 9.0-20.0 [facility] Comment on above: Performed By: #### T ROP, BNP, CMP, CRP #### [facility] [address] [place] [address] Cheryljason Srinivasan Urea nitrogen/Creatinine [Mass ratio] 20.0 mg/mg Normal [facility] Comment on above: Performed By: #### T ROP, BNP, CMP, CRP #### [facility] [address] [place] [address] Cheryljason Srinivasan PROTIMEon 12-16-2019 INR Coag (PPP) [Relative time] 0.97 {INR} Normal [facility] Comment on above: Performed By: #### D DIM, PT, PTT #### [facility] [address] [place], [place] [phone] Cheryl Zarina PT Coag (PPP) [Time] PLEASE NOTE: NORMAL RANGE CHANGE 10-31-2013 DUE TO REAGENT LOT CHANGE Normal [facility] Comment on above: Performed By: #### D DIM, PT, PTT #### [facility] [address] [place], [place] [id number] Cheryl Zarina PT Coag (PPP) [Time] 10.3 s Normal 9.0-11.6 [facility] Comment on above: Performed By: #### D DIM, PT, PTT #### [facility] [address] [place], [place] [phone] Cheryl Zarina PT Coag (PPP) [Time] SEE BELOW Normal [facility] Comment on above: Result Comment: CHEMO RED INR: 2.0 - 3.0 CONDITIONS NOT LISTED BELOW 2.5 - 3.5 FOR PROSTHETIC HEART VALVE REPLACEMENT 2.5 - 3.5 RECURRENT THROMBOSIS Performed By: #### D DIM, PT, PTT #### [facility] [address] [place] [address] Cheryl Srinivasan PTTon 12-16-2019 aPTT Coag (Bld) [Time] PLEASE NOTE: NORMAL RANGE CHANGE 01-07-2015 DUE TO REAGENT LOT CHANGE Normal [facility] Comment on above: Performed By: #### D DIM, PT, PTT #### [facility] [address] [place] [address] Cheryl Srinivasan aPTT Coag (Bld) [Time] 26.0 s Normal 22.3-36.2 [facility] Comment on above: Performed By: #### D DIM, PT, PTT #### [facility] [address] [place] [address] Cheryl Srinivasan Rapid Covid-19 PCRon 020 DefenCall LDT Info SEE BELOW Normal [facility] Comment on above: Result Comment: This test is not yet approved or cleared by the [place] Food and Drug Administration (FDA) . This test was developed by [employer], [facility]. The performance characteristics of this test were validated by [facility]. The results are not intended to be used as the sole means for clinical diagnosis or patient management decisions. The [facility] is authorized under Clinical Laboratory Improvement Amendments (CLIA) to perform high-complexity testing. When diagnostic testing is negative, the possibility of a false negative should be considered in the context of a patients recent exposures and the presence of clinical signs and symptoms consistent with SARS-CoV-2. Performed By: #### C VDRPD #### [facility] [address] [place] [address] Cheryl Srinivasan SARS-CoV-2 DETECTED NOT DETECTED [facility] Comment on above: Result Comment: . Performed By: #### C VDRPD #### [facility] [address] [place] [address] Cheryl Srinivasan TROPONIN - Ion 12-16-2019 Troponin I.cardiac [Mass/Vol] ng/mL Normal <=0.034 [facility] Comment on above: Performed By: #### C BC #### [facility] [address] [place] [address] Cheryl Srinivasan Troponin I.cardiac [Mass/Vol] SEE BELOW Normal [facility] Comment on above: Result Comment: <0.0 34 ng/ml NEGATIVE 0.034-0.119 INDETERMINATE 0.120 AMI CUT OFF Performed By: #### C #### [facility] [address] [id number] Cheryl Srinivasan Vital Signs Date Time Vital Sign Value Performing Clinician Facility 11-15-2023 12:53-0400 Body height 185.4 cm Arianna Lou DPM Work Phone: [facility] 11-15-2023 12:53-0400 Body mass index (BMI) [Ratio] 40.13 kg/m2 Arianna Lou DPM Work Phone: [facility] 11-15-2023 12:53-0400 Body weight 137.98 kg Arianna Lou DPM Work Phone: [facility] 02-12-2020 09:31-0500 Pulse Oximetry 98 % [facility] [place] 02-12-2020 09:30-0500 BP Diastolic 73 mm[Hg] [place] 02-12-2020 09:30-0500 BP Systolic 135 mm[Hg] [place] 02-12-2020 09:30-0500 Pulse (Heart Rate) 56 /min [place], [place] 02-12-2020 09:30-0500 Respiratory Rate 22 /min [facility] [place] 02-12-2020 07:14-0500 BMI (Body Mass Index) 36.89 kg/m2 [facility] [place] 02-12-2020 07:14-0500 Body weight 123.38 kg [place] 02-12-2020 07:14-0500 Height 182.9 cm [place] Encounters Encounter Date Encounter Type Care Provider Facility Start: 11-15-2023 End: 11-15-2023 Bamboo flowsheet Arianna Lou DPM Work Phone: [facility] Start: 11-15-2023 End: 11-15-2023 Bamboo flowsheet Arianna Lou DPM Work Phone: [facility] Start: 11-15-2023 End: 11-15-2023 Patient encounter procedure Arianna Lou DPM Work Phone: [facility] Comment on above: Dermatophytosis of n ail (Primary Dx); Dystrophic nail; Pain around toenail, right foot; Pain around toenail, left foot Start: 11-15-2023 End: 11-15-2023 ambulatory ARIANNA LOU Not Available Start: 11-13-2023 End: 11-13-2023 ambulatory [facility] Start: 10-23-2023 End: 10-23-2023 ambulatory Ever Guillen MD Facility: [facility] Start: 10-11-2023 End: 10-11-2023 ambulatory KENIA CASTILLO Not Available Start: 09-19-2023 End: 09-19-2023 ambulatory KENIA RONQUILLOPFITO Not Available Start: 09-18-2023 End: 09-18-2023 [facility]ulatory [facility] Start: 07-24-2023 End: 07-24-2023 ambulatory [facility]ill[facility] MD [facility] Start: 07-20-2023 End: 07-20-2023 ambulatory ARIANNA LOU Not Available Start: 07-18-2023 End: 07-18-2023 ambulatory KENIA KAMPFER Not Available Start: 06-19-2023 End: 06-19-2023 ambulatory BOBBY PINK Not Available Start: 06-14-2023 End: 06-30-2023 ambulatory DAVID AWAD JR [facility] Start: 06-09-2023 End: 06-09-2023 ambulatory KENIA KAMJaredFER Not Available Start: 05-24-2023 End: 05-24-2023 ambulatory DAVID HENDRICKSON Not Available Start: 05-23-2023 End: 05-23-2023 ambulatory Marina Redd Facility:[facility] Start: 05-23-2023 End: 05-23-2023 ambulatory FITTINGS FINISHER-C Jeannine Moseleyk Work Phone: [facility] Work Phone: Start: 05-23-2023 End: 05-23-2023 Patient encounter procedure FITTINGS FINISHER-C Jeannine Evangelista Work Phone: [facility] [address] Work Phone: Start: 05-11-2023 End: 05-11-2023 ambulatory FITTINGS FINISHER-C Jeannine Moseleyk Work Phone: [facility] Work Phone: Start: 05-11-2023 End: 05-11-2023 Patient encounter procedure FITTINGS FINISHER-C Jeannine Evangelista Work Phone: [facility] [address] Work Phone: Start: [...] be covered. He gave a reference # [id number].) Start: 03-29-2023 Telephone encounter Yuliya lantigua PT [...] so.) Start: 03-28-2023 Telephone encounter Maddie Latham DIRECTOR OF PHYSICAL SECURITY [facility] Comment on above: re: PT today (Called and noted auth is still pending for PT and in need to cx today; I informed I will keep up-to-date come his next on 03/30.) Start: 03-23-2023 Lenetheet Yuliya kinney PT Work Phone: [facility] Start: 03-23-2023 Lenetheet Yuliya kinney PT Work Phone: [facility] Start: 03-23-2023 End: 03-23-2023 ambulatory Yuliya Romero PT Work Phone: [facility] Comment on above: Left thigh pain (Cassandra morales Dx); Muscle strain of left thigh, subsequent encounter Start: 03-14-2023 End: 03-14-2023 ambulatory MARINA REDD Not Available Start: 03-06-2023 End: 03-06-2023 ambulatory MARINA REDD Not Available Start: 03-01-2023 End: 03-01-2023 ambulatory ARIANNA LOU Not Available Start: 05-03-2022 End: 05-04-2022 ambulatory [facility] Start: 09-23-2020 End: 09-23-2020 Subsequent hospital visit by physician [facility] Echo Room [facility] Echocardiography Comment on above: Persistent atrial fi brillation (HCC); SOB (shortness of breath); Essential hypertension; Other specified diabetes mellitus with other specified complication, unspecified whether chcf insulin use (HCC); Class 2 obesity with body mass index (BMI) of 36.0 to 36.9 in adult, unspecified obesity type, unspecified whether serious comorbidity present; Pain in both lower extremities Start: 03-10-2020 End: 03-12-2020 Subsequent hospital visit by physician [facility] Vascular Imaging Room [facility] Laboratory Comment on above: Controlled type 2 di abetes mellitus with hyperglycemia, without long-term current use of insulin (HCC); Persistent atrial fibrillation (HCC); SOB (shortness of breath); Essential hypertension; Other specified diabetes mellitus with other specified complication, unspecified whether terminal supervisor insulin use (HCC); Class 2 obesity with body mass index (BMI) of 36.0 to 36.9 in adult, unspecified obesity type, unspecified whether serious comorbidity present; COVID-19; Fluid retention; Pain in both lower extremities Pain in both lower e xtremities; PVD (peripheral vascular disease) (HCC) Start: 02-12-2020 End: 02-12-2020 Subsequent hospital visit by physician Ej Foster Work Phone: [facility] ICU Comment on above: Arrived Start: 01-22-2020 End: 01-22-2020 Subsequent hospital visit by physician [facility] Echo Room [facility] Echocardiography Comment on above: Persistent atrial fi brillation (HCC); Essential hypertension; SOB (shortness of breath); Fluid retention; Other specified diabetes mellitus with other specified complication, unspecified whether chcf insulin use (HCC); Class 2 obesity with body mass index (BMI) of 36.0 to 36.9 in adult, unspecified obesity type, unspecified whether serious comorbidity present Start: 12-16-2019 End: 12-16-2019 Patient encounter procedure [facility] Facility: Start: 12-11-2019 End: 12-11-2019 Subsequent hospital visit by physician [facility] Covid Screening Schedule [facility] Covid Screening Comment on above: Arrived [...] 01-22-2020 Basic metabolic pane l calcium total jE Foster Work Phone: Start: 01-22-2020 Blood count complete automated Ej Foster Work Phone: Start: 01-22-2020 Hemoglobin glycosyla sole a1c Ej Foster Work Phone: Start: 01-22-2020 Echo tthrc r-t 2d w/wom-mode compl spec&colr d Ej Foster Work Phone: Start: 12-16-2019 End: 12-16-2019 Microscopic examination of blood, culture DOCTOR [facility] Comment on above: Performed By: #### B [id number] #### [facility] [address] [place], [place] [id number] Cheryl Srinivasan Performed By: #### C BC #### [facility] [address] [place], [place] [address] Cheryl Srinivasan Plan of Treatment Date Care Activity Detail Author Start: 11-28-2028 DTaP/Tdap/Td vaccine (2 - Td or Tdap) DTaP/Tdap/Td vaccine (2 - Td or Tdap) [facility] Work Phone: Start: 11-28-2028 DTaP/Tdap/Td vaccine (2 - Td) DTaP/Tdap/Td vaccine (2 - Td) [facility] [place] Start: 06-27-2024 Screening for malignant neoplasm of colon Colorectal Cancer Screening [facility] Comment on above: Postponed from 1948 (Patient Refus ed) Start: 06-08-2024 Urine screening for protein Diabetes: Urine Protein Screening [facility] Start: 03-19-2024 End: 03-19-2024 Patient encounter procedure 03/19/2024 1:00 PM EST Procedure Visit [facility] [address] [place] [address] Arianna Lou DPM [address] [place] [address] [facility] Start: 03-04-2024 End: 03-04-2024 Patient encounter procedure 03/04/2024 1:00 PM EST Office Visit [facility] [address] [facility] [address] [place] [phone] Marina Redd PA [address] [facility] [address] [place] [address] [facility] Start: 01-17-2024 End: 01-17-2024 Patient encounter procedure 01/17/2024 2:00 PM EST Office Visit [facility] [address] [place] [phone] Kenia Castillo NP [address] [place] [address] [facility] Start: 12-20-2023 Hemoglobin A1c measurement Diabetes: Hemoglobin A1C [facility] Start: 12-03-2023 Medicare Annual Wellness (AWV) Medicare Annual Wellness (AWV) [facility] Start: 11-15-2023 End: 11-15-2023 Patient encounter procedure 11/15/2023 1:00 PM EDT Procedure Visit [facility] [address] [place] [phone] Arianna Lou DPM [address] [place] [address] Arrived [facility] Comment on above: Arrived Start: 10-15-2023 Influenza vaccination Influenza Vaccine (#1) [facility] Start: 06-14-2023 End: 06-14-2023 Patient encounter procedure 06/14/2023 1:30 PM EDT Procedure Visit [facility] [address] [place] [phone] Arianna Lou DPM [address] [place] [address] [facility] Start: 06-09-2023 End: 06-09-2023 Patient encounter procedure 06/09/2023 1:00 PM EDT Office Visit [facility] [address] [place] [phone] Kenia Castillo, FITTINGS FINISHER [address] [place] [address] [facility] Start: 04-17-2023 End: 04-17-2023 Patient encounter procedure 04/17/2023 1:30 PM EST Office Visit [facility] [address] [facility] [address] [place] [address] Marina Redd, PA [address] [place] [address] [facility] Start: 04-13-2023 End: 04-13-2023 ambulatory 04/13/2023 1:00 PM EST Treatment [facility] [address] [place] [place] [address] Yuliya Romero, PT [address] [place] [address] [facility] Start: 04-11-2023 End: 04-11-2023 ambulatory 04/11/2023 1:00 PM EST Treatment [facility] [address] [place] [address] Maddie Latham, DIRECTOR OF PHYSICAL SECURITY [facility] Start: 04-06-2023 End: 04-06-2023 ambulatory 04/06/2023 2:00 PM EST Treatment [facility] [address] [place] [address] Maddie Latham, DIRECTOR OF PHYSICAL SECURITY [facility] Start: 04-05-2023 End: 04-05-2023 ambulatory 04/05/2023 1:00 PM EST Treatment [facility] [address] [place] [address] Valreie Argueta, PT [facility] Start: 04-04-2023 End: 04-04-2023 ambulatory 04/04/2023 1:00 PM EST Treatment [facility] [address] [place] [address] Maddie Latham, DIRECTOR OF PHYSICAL SECURITY [facility] Start: 03-30-2023 End: 03-30-2023 ambulatory 03/30/2023 2:00 PM EST Treatment [facility] [address] [place] [address] Maddie Latham, DIRECTOR OF PHYSICAL SECURITY [facility] Start: 03-28-2023 End: 03-28-2023 ambulatory 03/28/2023 1:30 PM EST Treatment [facility] [address] [place] [address] Maddie Latham, DIRECTOR OF PHYSICAL SECURITY [facility] Start: 03-23-2023 End: 03-23-2023 ambulatory 03/23/2023 1:00 PM EST Evaluation [facility] [address] [place] [address] Yuliya Romero, PT [address] [place] [address] Left thigh pain; Muscle strain of left thigh, subsequent encounter [facility] Comment on above: Left thigh pain; Muscle strain of left thigh, subsequent encounter Start: 01-31-2023 Hemoglobin A1c measurement Diabetes: Hemoglobin A1C [facility] Start: 12-02-2022 Glaucoma screening Diabetes: Retinopathy Screening [facility] Start: 09-30-2021 End: 09-30-2021 Patient encounter procedure 09/30/2021 Office Visit Cardiology Ej Foster MD [address] [place] [address] [place] [address] [phone] [facility] Start: 03-10-2021 Creatinine measurement Creatinine monitoring [facility] [place] Start: 03-10-2021 HbA1c (Bld) [Mass fraction] A1C test (Diabetic or Prediabetic) [facility] Start: 03-10-2021 Hemoglobin A1c measurement A1C test (Diabetic or Prediabetic) [employer] Phone: Start: 03-10-2021 Lipid panel Lipid screen [place], [place] Start: 03-10-2021 Potassium monitoring Potassium [place] Start: 01-21-2021 Creatinine measurement Creatinine monitoring [facility] [place] Start: 01-21-2021 HbA1c (Bld) [Mass fraction] A1C test (Diabetic or Prediabetic) [place] Start: 01-21-2021 Potassium monitoring Potassium [place] Start: 10-14-2020 Influenza vaccination Flu vaccine (#1) [facility] Phone: Start: 09-16-2020 End: 09-16-2020 Office Visit 09/16/2020 Office Visit Cardiology Ej Foster MD [address] [place] [address] [place] [address] [facility] Start: 03-10-2020 End: 03-10-2020 Office Visit 03/10/2020 Office Visit Cardiology Ej Foster MD [address] [place] [address] [place] [address] [facility] Start: 02-21-2020 End: 02-21-2020 Office Visit 02/21/2020 Office Visit Cardiology Ej Foster MD [address] [place] [address] [facility] Start: 01-30-2020 End: 01-30-2020 Office Visit 01/30/2020 Office Visit Cardiology Ej Foster MD [address] [place] [address] [facility] Start: 12-11-2019 Annual Wellness Visit (AWV) Annual Wellness Visit (AWV) [place] Start: 10-15-2019 Influenza vaccination Flu vaccine (#1) [place] Start: 2013 Pneumococcal 65+ years Vaccine (1 of 1 - PPSV23) Pneumococcal 65+ years Vaccine (1 of 1 - PPSV23) [place] Start: 2013 Pneumococcal 65+ years Vaccine (2 of 2 - PPSV23) Pneumococcal 65+ years Vaccine (2 of 2 - PPSV23) [place] Start: 07-17-2012 Shingles Vaccine (2 of 3) Shingles Vaccine (2 of 3) [place] Start: 1998 Screening for malignant neoplasm of colon Colon cancer screen colonoscopy [place] Start: 1998 Shingles Vaccine (1 of 2) Shingles Vaccine (1 of 2) [place] Start: 1993 Screening for malignant neoplasm of colon Colon cancer screen colonoscopy [facility] Work Phone: Start: 1988 Lipid panel Lipid screen [place] Start: 10-04-1967 DTaP/Tdap/Td vaccine (1 - Tdap) DTaP/Tdap/Td vaccine (1 - Tdap) [place] Start: 1966 Diabetic microalbuminuria test Diabetic microalbuminuria test [place] Start: 1958 Diabetic foot examination Diabetic foot exam [place] Start: 1958 Diabetic retinal exam Diabetic retinal exam [place], [place] Start: 1958 Lipid panel Lipid screen [place], [place] Start: 1948 Creatinine measurement Creatinine monitoring [place], [place] Start: 1948 Hepatitis C screening Hepatitis C screen [place], [place] Start: 1948 Potassium monitoring Potassium monitoring [place], [place] Start: 1948 Screening for malignant neoplasm of colon [facility] End: 02-12-2020 Catheterization and angiography procedure details panel Diagnostic Cardiac Fish Processing Supervisor Procedure Cardiac Cath Routine One Time for 1 Occurrences starting 02/12/2020 until 02/12/2020 [place] Comment on above: One Time for 1 Occurrences starting 01/15 until 02/12/2020 Continuous pulse oximetry Pulse oximetry, continuous Respiratory Care Routine Every 4hr until discontinued starting 02/12/2020 [place] Comment on above: Every 4hr until discontinued starting End: 12-11-2019 Covid-19 Ambulatory Covid-19 Ambulatory Lab Routine Once for 1 Occurrences starting 12/11/2019 until 12/11/2019 [place] Comment on above: Once for 1 Occurrences starting 12/11/19 20 until 12/11/2019 Covid-19 Ambulatory Covid-19 Amb ulatory Lab Routine 12/11/2019 2:27 PM EDT [place] EKG 12 Lead EKG 12 Lead ECG Routine 02/12/2020 8:26 AM EST [place] End: 02-12-2020 End Tidal CO2 Continuous End Tidal CO2 Continuous Respiratory Care Routine Continuous until discontinued starting 02/12/2020 [place] Comment on above: Continuous until discontinued starting 1 End: 03-10-2020 HbA1c (Bld) [Mass fraction] Hemoglobin A1C Lab Routine Controlled type 2 diabetes mellitus with hyperglycemia, without long-term current use of insulin ([facility]) 1 Occurrences starting 03/10/2020 until 03/10/2020 [place] Comment on above: 1 Occurrences starting 03/10/2020 until 03/10/2020 HbA1c (Bld) [Mass fraction] Hemoglobin A1C Lab Routine Controlled type 2 diabetes mellitus with hyperglycemia, without long-term current use of insulin ([facility]) 03/10/2020 12:35 PM EST [place] Oxygen therapy [[facility] Data Set] Initiate Oxygen Therapy Protocol Respiratory Care Routine Daily until discontinued starting 02/12/2020 [place] Comment on above: Daily until discontinued starting 2019 End: 03-10-2020 VL LOWER EXTREMITY ARTERIAL SEGMENTAL PRESSURES W PPG VL LOWER EXTREMITY ARTERIAL SEGMENTAL PRESSURES W PPG Imaging STAT Pain in both lower extremities PVD (peripheral vascular disease) ([facility]) 1 Occurrences starting 03/10/2020 until 03/10/2020 [place] Comment on above: 1 Occurrences starting 03/10/2020 until 03/10/2020 VL LOWER EXTREMITY ARTERIAL SEGMENTAL PRESSURES W PPG VL LOWER EXTREMITY ARTERIAL SEGMENTAL PRESSURES W PPG Imaging STAT Pain in both lower extremities PVD (peripheral vascular disease) (HCC) 03/10/2020 1:24 PM EST [place] Immunizations Immunization Date Immunization Notes Care Provider Solis atkinson 12-02-2022 pneumococcal polysaccharide vaccine, 23 valent Yuliya Romero PT Work Phone: [facility] 11-01-2022 influenza, high dose seasonal, preservative-free Yuliya Romero PT Work Phone: [facility] 11-01-2022 influenza virus vacc ine, unspecified formulation Arianna Lou DPM Work Phone: [facility] 11-01-2021 Influenza, Seasonal, Quadrivalent, Adjuvanted Yuliya Romero PT Work Phone: [facility] 11-01-2021 SARS-COV-2 (COVID-19 ) vaccine, mRNA, spike protein, LNP, bivalent, preservative free, 30 mcg/0.3 mL dose, mauro-sucrose formulation Yuliya Romero PT Work Phone: [facility] 11-01-2021 SARS-CoV-2, Unspecified Jamie my Heather PT Work Phone: [facility] 10-30-2021 Influenza, High-dose Seasonal, Quadrivalent, Preservative Free Yuliya Romero PT Work Phone: [facility] 11-12-2020 Influenza, High-dose Seasonal, Quadrivalent, Preservative Free Yuliya Romero PT Work Phone: [facility] 11-11-2020 Influenza, High-dose Seasonal, Quadrivalent, Preservative Free Yuliya Romero PT Work Phone: [facility] 11-11-2020 Pfizer Purple Cap SARS-CoV-2 Vaccination Yuliya Romero PT Work Phone: [facility] 04-12-2020 Pfizer Purple Cap SARS-CoV-2 Vaccination Yuliya Romero PT Work Phone: [facility] 03-19-2020 Pfizer Purple Cap SARS-CoV-2 Vaccination Yuliya Romero PT Work Phone: [facility] 11-28-2019 influenza, injectabl e, quadrivalent, preservative free Yuliya Maryton PT Work Phone: [facility] 11-28-2018 influenza, injectabl e, quadrivalent, preservative free Yuliya Maryton PT Work Phone: [facility] 11-28-2018 tetanus toxoid, redu hiral diphtheria toxoid, and acellular pertussis vaccine, adsorbed Yuliyamiguel Romero PT Work Phone: [facility] 11-27-2018 influenza, high dose seasonal, preservative-free Yuliya Heather PT Work Phone: [facility] 11-27-2017 influenza, high dose seasonal, preservative-free Yuliya Maryton PT Work Phone: [facility] 11-27-2017 Influenza, High-dose Seasonal, Quadrivalent, Preservative Free Yuliya Heather PT Work Phone: [facility] 11-22-2016 influenza, injectabl e, quadrivalent, contains preservative Yuliya Romero PT Work Phone: [facility] 11-22-2016 influenza, injectabl e, quadrivalent, preservative free Yuliya Maryton PT Work Phone: [facility] 07-29-2015 pneumococcal conjuga te vaccine, 13 valent Yuliya Romero PT Work Phone: [facility] 01-21-2015 influenza, seasonal, injectable, preservative free Yuliya Maryton PT Work Phone: [facility] 12-11-2013 influenza, injectabl e, quadrivalent, preservative free Yuliya Maryton PT Work Phone: [facility] 03-13-2013 influenza, seasonal, injectable Yuliya Romero PT Work Phone: [facility] 03-13-2013 influenza, seasonal, injectable, preservative free Yuliya Romero PT Work Phone: [facility] 03-13-2013 pneumococcal polysaccharide vaccine, 23 valent Yuliya Romero PT Work Phone: [facility] 05-22-2012 zoster vaccine, live Yuliya Romero PT Work Phone: [facility] 02-02-2012 influenza, seasonal, injectable Yuliya Romero PT Work Phone: [facility] Payers Date Payer Category Payer Self-pay 2023 Medicare [id number] 2023 Medicare [id number] 2023 Unknown [id number] 1959 Medicare [id number] 1959 Unknown [id number] 1948 Unknown [id number] 2.16.84 0.1.567225.3.579.2.593 1948 Unknown [id number] 2.16.8 40.1.081491.3.579.2.173 1948 Unknown [id number] 2.16.8 40.1.335468.3.579.2.1286 1948 Unknown [id number] 2.16.8 40.1.989435.3.579.2.1286 1948 Unknown [id number] 2.16.8 40.1.072033.3.579.2.1286 1948 Unknown [id number] 2.16. 840.1.299449.3.579.2.196 1948 Unknown [id number] 2.16. 840.1.140302.3.579.2.196 1948 Unknown [id number] 2.16. 840.1.450798.3.579.2.196 1948 Unknown [id number] 2.16. 840.1.494686.3.579.2.196 1948 Unknown [id number] 2.16.84 0.1.424006.3.579.2.1259 1948 Unknown [id number] 2.16.84 0.1.065381.3.579.2.1259 1948 Unknown [id number] 2.16.84 0.1.479668.3.579.2.1259 1948 Unknown [id number] 2.16.84 0.1.621127.3.579.2.1259 1948 Unknown [id number] 2.16.84 0.1.129963.3.579.2.1259 1948 Unknown [id number] 2.16.84 0.1.984743.3.579.2.1259 1948 Unknown [id number] 2.16.84 0.1.742984.3.579.2.1259 1948 Unknown [id number] 2.16.84 0.1.967463.3.579.2.1259 1948 Unknown [id number] 2.16.84 0.1.144211.3.579.2.1259 1948 Unknown [id number] 2.16.84 0.1.709066.3.579.2.1259 1948 Unknown [id number] 2.16.84 0.1.917486.3.579.2.1259 1948 Unknown [id number] 2.16.84 0.1.785152.3.579.2.1259 1948 Unknown [id number] 2.16.84 0.1.700918.3.579.2.1259 1948 Unknown [id number] 2.16.84 0.1.908942.3.579.2.1259 1948 Unknown [id number] 2.16.84 0.1.390142.3.579.2.1259 1948 Unknown [id number] 2.16.84 0.1.908884.3.579.2.125 1948 Unknown [id number] 2.16.84 0.1.869471.3.579.2.1259 1948 Unknown [id number] 2.16.84 0.1.642549.3.579.2.1259 1948 Unknown [id number] 2.16.84 0.1.024222.3.579.2.1259 1948 Unknown [id number] 2.16.84 0.1.645878.3.579.2.1259 1948 Unknown [id number] 2.16.84 0.1.304649.3.579.2.1259 1948 Unknown [id number] 2.16.84 0.1.983097.3.579.2.1259 Unknown [id number] 2.16.8 40.1.409164.3.579.2.531 Social History Date Type Detail Facility Tobacco smoking stat us PRIS Unknown if ever smoked [place], [place] Start: 1950 Sex Assigned At Not on file [place] Start: 01-22-2020 End: 08-02-2022 Tobacco [facility] status [facility] Start: 01-22-2020 End: 08-02-2022 Tobacco use and exposure Never used [place] Start: 03-10-2020 End: 11-15-2023 Alcohol intake [facility] Start: 02-12-2020 Alcohol Comment having had sin ce December [place] Exposure to SARS-CoV -2 (event) Not sure [facility] Start: 09-16-2020 End: 12-02-2022 Alcohol intake [facility] Work Phone: Start: 12-02-2022 End: 03-14-2023 Tobacco use panel [facility] Start: 10-25-2022 Alcohol Comment drinks alcohol 2-3 times a week [facility] Start: 1950 Sex Assigned At Male F [facility] How often to you hav e a drink containing alcohol? 2-4 times a month [facility] How many standard drinks containing alcohol do you have on a typical day? 3 or 4 [facility] How often do you hav e 6 or more drinks on 1 occasion? Never [facility] Start: 10-11-2023 Alcohol Comment caffeine intak e: 12 oz daily [facility] Clinical Notes 09-23-2020 to 11-15-2023 Arianna Lou DPM - 11/15/2023 1:00 PM EDTPatient InstructionsTelephone Encounter - Marjorie Thayer - 03/30/2023 1:17 PM ESTTelephone Encounter - Marjorie Thayer - 03/30/2023 1:17 PM EST Note Date & Type Note Facility 11-15-2023 History of Present illness Narrative Images from the original note were not included. Subjective Patient ID: Quentin Winters is a 73 y.o. male who presents for Toenail Care (PCP: Kenia WOODRUFF 10/11/23, A1C: 6.2, BS: 107). HPI HPI Onychomycosis/Toenail Fungus: presents today requesting nail care. Symptomatic toenail deformity. Location: indicates that essentially all digits are problematic/symptomatic; bilateral great toes remain notably worse. Duration: chronic toenail deformity, multiple years duration. Severity of symptoms: mild-moderate, impacting his ability to wear shoes comfortably. Onset: gradual, without known injury or trauma. Status: problematic/symptomatic over the past several weeks or so. Context: hard to trim, hard to reach; self-care is difficult, ineffective and not practical; exposing patient to considerable risk. Family members unable to provide effective care. Characteristics: discolored, thickened, pain , pressure , elongated , ingrowing , crusty; without bleeding or drainage. Relieved by: palliative care measures provide effective transient symptom relief. Previous Treatment: palliative care as noted. Risk factors: medical comorbidities. Anti-coagulant therapy. Bilateral knee endoprosthesis. toenail deformity. Chronic lumbar radiculopathy. Flexibility and mobility restraints. Digital and/or shoe trauma and related complications. Aggravated by: shoe gear , pressure , walking; catching and snagging on clothing etc.. Medications Current Outpatient Medications: allopurinol (Zyloprim) 100 MG tablet, TAKE 1 TABLET IN THE MORNING, Disp: 90 tablet, Rfl: 1 amitriptyline (Elavil) 10 MG tablet, Take 1 tablet (10 mg) by mouth at bedtime, Disp: 90 tablet, Rfl: 0 apixaban (Eliquis) 5 MG tablet, TAKE 1 TABLET IN THE MORNING AND 1 TABLET BEFORE BEDTIME, Disp: 180 tablet, Rfl: 1 atorvastatin (Lipitor) 10 MG tablet, TAKE 1 TABLET IN THE MORNING, Disp: 90 tablet, Rfl: 1 cyclobenzaprine (Flexeril) 10 MG tablet, Take 10 mg by mouth 3 (three) times a day as needed, Disp: , Rfl: HYDROcodone-acetaminophen ([place]) 5-325 MG tablet, Take 1 tablet by mouth 2 (two) times a day as needed, Disp: , Rfl: metFORMIN (Glucophage) 500 MG tablet, TAKE 1 TABLET IN THE MORNING AND 1 TABLET IN THE EVENING WITH MEALS, Disp: 180 tablet, Rfl: 0 metoprolol tartrate (Lopressor) 25 MG tablet, Take 0.5 tablets (12.5 mg) by mouth in the morning and 0.5 tablets (12.5 mg) before bedtime. Taking half a tablet in the morning and evening.., Disp: 90 tablet, Rfl: 1 omeprazole (PriLOSEC) [address] capsule, Take 1 capsule (20 mg) by mouth in the morning. Take before meals. Do not crush or chew.., Disp: 90 capsule, Rfl: 1 rOPINIRole (Requip) 1 MG tablet, Take 1 tablet (1 mg) by mouth at bedtime, Disp: 90 tablet, Rfl: 1 tamsulosin (Flomax) 0.4 MG 24 hr capsule, TAKE 1 CAPSULE IN THE MORNING, Disp: 90 capsule, Rfl: 1 VITAMIN D, CHOLECALCIFEROL, PO, Vitamin D, Disp: , Rfl: baclofen (Lioresal) 10 MG tablet, Take 10 mg by mouth in the morning and 10 mg in the evening and 10 mg before bedtime., Disp: , Rfl: Bioflavonoid Products (VITAMIN C PLUS PO), Take by mouth, Disp: , Rfl: losartan-hydroCHLOROthiazide (Hyzaar) 50-12.5 MG tablet, TAKE 1 TABLET IN THE MORNING (Patient not taking: Reported on 11/15/2023), Disp: 90 tablet, Rfl: 1 Allergies Patient has no known allergies. Past Surgical History Past Surgical History: Procedure Laterality Date CARDIOVERSION LUMBAR DISC SURGERY TOTAL KNEE ARTHROPLASTY Bilateral 2021 Family History Family History Problem Relation Name Age of Onset Stroke Mother Heart disease Mother Hypertension Mother Stroke Father Objective General Examination: GENERAL EXAMINATION: Alert and oriented. Pleasant disposition. Ambulatory with cane assist. Wearing New balance shoes. Vascular: DORSALIS PEDIS PULSE:1/4, bilaterally. POSTERIOR TIBIAL PULSE:faintly palpable, bilaterally. TEMPERATURE GRADIENT:warm to warm. EDEMA:moderate pitting edema of the right ankle; with mild pitting edema of the left ankle. CALF:supple , nontender , bilateral. VARICOSITIES:present , bilaterally. CAPILLARY FILLING TIME(sec): capillary fill intact bilateral digits less than 3 secs. HAIR GROWTH: present. Neurologic: TINELS SIGN VIBRATORY:diminished at the MTP joints. SHARP SENSATION:tactile and light touch sensation is notably compromised over the forefoot and digital areas. SEMMES-ABHIJIT 5.07 MONOFILAMENT: unable to localize over the forefoot and digital areas. Dermatologic: SKIN FINDINGS:intact. Skin turgor is good. HYPERTROPHIC LESION:no distinct forefoot or digital keratotic pressure lesions are noted. HYPERKERATOSIS:mild along the rim of each heel. NAIL PATHOLOGY: bilateral great toes: TDO deformity: Toenail dystrophy, elongation, thickening, discoloration, brittleness, mild clubbing, crumbly texture, periungual hyperkeratosis, subtotal detachment, lunula involvement; without drainage. All lesser digits: Varying degrees of toenail dystrophy, hypertrophy, thickening, clubbing, elongation, discoloration and clinical mycosis. MYCOSIS SCALE:total with debris, multiple digits. INTERDIGITAL MACERATION:clean, mildly macerated, non-inflamed. ULCER:no sign of ulceration or open wound. SKIN PATHOLOGY:texture, turgor are fair. Orthopedic: JOINT RANGE OF MOTION:demonstrates limited but functional ankle and subtalar joint range of motion. Functional MTP joint range of motion. DEFORMITIES:mild, flexible, reducible HAV deformity bilateral. The central digits are mildly contracted. MUSCLE STRENGTH: no focal deficits. Radiology: Assessment/Plan 1. Symptomatic onychodystrophy/mycosis multiple digits. 2. Skin condition remains much improved with emollient therapy. 3. Lumbar radiculopathy; chronic, stable. 4. Left knee endoprosthesis (February 2021). 5. Right leg length discrepancy. 6. Right knee endoprosthesis (July 2021). 7. Polio by history. Plan: Notes: conservative and palliative care measures preferred, understood and again indicated; expressing no interest in oral therapy. Topical therapy is difficult for him, due to mobility and flexibility limitations. Continue AmLactin therapy. Continue clotrimazole 1% cream each morning as needed. Hygiene measures discussed; recommending cornstarch powder for the webspace areas. Patient education and assessment relative to the insensate foot condition. Procedure: Toenail Debridement: Aseptic technique: power/manual instrumentation: onychodebridement length and thickness, curretage of offending crypotic margins, jeremiah-ungual debris, providing effective pressure and symptom relief, reducing shoe and digital trauma; reducing fungal load and deformity This note was created with the assistance of a speech recognition program. While intending to generate a timely document that accurately reflects the content of the visit, no guarantee can be provided that every grammatical or spelling mistake has been or will be identified or corrected. Thank you for your understanding. Arianna Luo DPM documented in this encounter [facility] 11-15-2023 Instructions Arianna Lou DPM - 11/15/2023 1:00 PM EDT As noted documented in this encounter [facility] 03-30-2023 Telephone encounter Note 04/05 @ 1:00 pm . [facility] 03-30-2023 Miscellaneous Notes 04/05 @ 1:00 pm . So that reference # does nothing? His eval was 2/8, and is it noted per [facility] to continue, auth is needed? Would it be ok to schedule? documented in this encounter [facility] 03-30-2023 Telephone encounter Note So that reference # does nothing? His eval was 2/8, and is it noted per [facility] to continue, auth is needed? [facility] 03-30-2023 Telephone encounter Note Would it be ok to schedule? [facility] 03-29-2023 Telephone encounter Note Pt cx PT out. [facility] 03-29-2023 Miscellaneous Notes Pt cx PT out. documented in this encounter [facility] 09-20-2021 Note [id number] Note [id number][facility]1.[facility] Note Education Materials POST OPERATIVE [...] #8 follow up in office with physician executive personal assistant Justo Redd as scheduled #9 NOMS [...] to the nearest hospital's emergency services department. [facility] 09-18-2021 Note [facility] Clinical Discharge Summary PERSON INFORMATION Name ZAINA WINTERS Age 70 Years 1950 Sex MALE Language Malay PCP Tonja ERNANDEZ, Jeannine Alfonso Marital Status Med Service Observation Acct# Arrival 09/17/2021 08:03:00 Visit Reason SURGERY-RIGHT TOTAL KNEE (GABRIELA) Acuity LOS 000 26:09 Address: [address] [place] [id number] Comment: PROVIDER INFORMATION VITALS INFORMATION Vital Sign [...] range between ( 1.3 and 2.9 ) [place] Abs#: 1.3 x103/mcL -- Normal range between ( 0.0 and 0.8 ) Auto Baso %: 0.0 % -- Normal range between ( 0.2 and 2.0 ) Auto [place] %: 9 % -- Normal range between [...] Follow up: With: Address: When: Marina Redd [address] [place] [address], [address] [place] [address] Precognate (1) 10/01/2021 11:00 AM DIAGNOSIS Acute pain of right knee Comment: PHYS DOC NOTES [facility] 03-04-2021 Note [id number]#1.00[facility] 03-04-2021 Note [id number]#1.[facility] 03-04-2021 Note [id number]#1.00[facility] 03-03-2021 Note Education Materials POST OPERATIVE [...] #8 follow up in office with physician executive personal assistant Justo Redd as scheduled #9 NOMS [...] to the nearest hospital's emergency services department. [facility] 03-03-2021 Note [facility] Clinical Discharge Summary PERSON INFORMATION Name ZAINA WINTERS Age 70 Years 1950 Sex MALE Language Malay PCP Tonja ERNANDEZ, Jeannine Alfonso Marital Status Med Service Observation Acct# Arrival 03/02/2021 05:52:00 Visit Reason SURGERY - LEFT TOTAL KNEE POSSIBLE STEMS AND AUGS - NEX GEN TIBIA Acuity LOS 000 26:57 Address: [address] [place] [address] Comment: PROVIDER INFORMATION VITALS INFORMATION Vital Sign [...] range between ( 1.3 and 2.9 ) [place] Abs#: 1.9 x103/mcL -- Normal range between ( 0.0 and 0.8 ) Auto Baso %: 0.0 % -- Normal range between ( 0.2 and 2.0 ) Auto [place] %: 10 % -- Normal range between [...] range between ( 74 and 118 ) [facility] Order 03/03/2021 4:47 AM Tube Collected: [...] Follow up: With: Address: When: Marina Redd [address] [place] [address] [address] [place] [address] Business (1) 03/15/2021 10:30 AM With: Address: When: Jeannine Evangelista [facility] [place] [address] Business (1) DIAGNOSIS Aftercare following left knee joint rep (more content not included)... [facility] 09-23-2020 History of Present illness Narrative Instructed on policies and procedures. documented in this encounter [employer] Phone: Evaluation note Diagnosis Persistent atrial fibrillation (HCC) Atrial fibrillation SOB (shortness of breath) Shortness of breath Essential hypertension Unspecified essential hypertension Other specified diabetes mellitus with other specified complication, unspecified whether terminal supervisor insulin use (HCC) Class 2 obesity with body mass index (BMI) of 36.0 to 36.9 in adult, unspecified obesity type, unspecified whether serious comorbidity present Pain in both lower extremities documented in this encounter [employer] Phone: evaluation note* Diagnosis Left thigh pain- Primary Pain in soft tissues of limb Muscle strain of left thigh, subsequent encounter documented in this encounter [facility] HealthcareEvaluation noteNo assessment information availableWvumed[facility] Work Phone: Evaluation note* Diagnosis Dermatophytosis of nail- Primary Dystrophic nail Other specified disease of nail Pain around toenail, right foot Pain around toenail, left foot documented in this encounter [facility] HealthcareReason for visit Narrative* Consultation (Routine) - Pending Review Specialty Diagnoses / Procedures Referred By Jamal hwang Referred To Contact Physical Therapy Diagnoses Left thigh pain Muscle strain of left thigh, subsequent encounter Procedures GA OFFICE/OUTPATIENT NEW HIGH [facility] 60 MINUTES Marina Redd, PA [address] [facility] [address] [place] [address] Yuliya Romero, PT [address] [facility] [address] [place] [address] Referral ID Status Reason Start Date Expiration Date Visits Requested Visits Authorized [id number] Pending Review Consult and Treat 03/23/2023 03/09/2024 1 1 [facility] Healthcare Summary Purpose Family History No Family History Records FoundNo Family History Records FoundNo Family History Records FoundNo Family History Records FoundNo Family History Records FoundNo Family History Records FoundNo Family History Records FoundNo Family History Records Found Advance Directives Latest Code Status on File Code Status [...] with other specified complication, unspecified whether terminal supervisor insulin use (HCC) Class 2 obesity with body mass index (BMI) of 36.0 to 36.9 in adult, unspecified obesity type, unspecified whether serious comorbidity present Procedures ECHO Complete 2D W Doppler W Color Ej Foster MD [address] [place] [address] [place] [address] [facility] Echo [address] [place] [address] Status Reason Specialty Diagnoses / Procedures Referre d By Contact Referred To Contact Closed Radiology Diagnoses Pain in both lower extremities PVD (peripheral vascular disease) (HCC) Procedures VL LOWER EXTREMITY ARTERIAL SEGMENTAL PRESSURES W PPG Ej Foster MD [address] [place] [address] [place] [address] Status Reason Specialty Diagnoses / Procedures Referre d By Contact Referred To Contact Closed Cardiology Diagnoses Persistent atrial fibrillation (HCC) SOB (shortness of breath) Essential hypertension Other specified diabetes mellitus with other specified complication, unspecified whether terminal supervisor insulin use (HCC) Class 2 obesity with body mass index (BMI) of 36.0 to 36.9 in adult, unspecified obesity type, unspecified whether serious comorbidity present Pain in both lower extremities Procedures Echo 2D w doppler w color Ej Randhawa MD [address] [place] [address] [place] [address] History of Present Illness * Nini Todd - 01/22/2020 11:30 AM EST Explained policies and procedures of an echocardiogram/Doppler study. documented in this encounter* Arianna Allen RN - 02/12/2020 9:42 AM EST Pipe Maker reviewed discharge instructions with patient and spouse. Both verbalized understanding. Denies questions. Copy of discharge instructions given to patient. documented in this encounter Assessments Diagnosis Persistent atrial fibrillation (HCC) Atrial fibrillation Essential hypertension Unspecified essential hypertension SOB (shortness of breath) Shortness of breath Fluid retention Other fluid overload Other specified diabetes mellitus with other specified complication, unspecified whether terminal supervisor insulin use (HCC) Class 2 obesity with body mass index (BMI) of 36.0 to 36.9 in adult, unspecified obesity type, unspecified whether serious comorbidity present Diagnosis Persistent atrial fibrillation (HCC) Atrial fibrillation Essential hypertension Unspecified essential hypertension SOB (shortness of breath) Shortness of breath Fluid retention Other fluid overload Other specified diabetes mellitus with other specified complication, unspecified whether chcf insulin use (HCC) Class 2 obesity with [...] mellitus with other specified complication, unspecified whether chcf insulin use (HCC) Class 2 obesity with [...] doctor prescribes. Do not take any vitamins, djxd-brx-ddykvpw medicines, or herbal products without talking to [...] or uneven pulse. After calling 911, the primer waterproofing machine operator may tell you to chew 1 [...] Where can you learn more? Go to [email or web address] and sign in to your [employer] account. Enter A617 in the Search Health Information box to learn more about Electrical Cardioversion: What to Expect at Home. If you do not have an account, please click on the Sign Up Now link. [id number] [employer] ([employer]). Care instructions adapted under license by [employer]. This care instruction is for use with your licensed healthcare professional. If you have questions about amedical condition or this instruction, always ask your healthcare professional. [employer] ([employer]) disclaims any warranty or liability for your use of this information. Content Version: 10.6.396924; Current as of: April 04, 2014 documented [...] and content) DATE CREATED AUTHOR 12/21/2019 [facility] DATE CREATED AUTHOR AUTHOR'S ORGANIZ ATION 06/12/2021 [facility] dical Specialist DATE CREATED AUTHOR AUTHOR'S ORGANIZ ATION 10/25/2021 [facility] DATE CREATED AUTHOR AUTHOR'S ORGANIZ ATION 05/04/2022 [facility] DATE CREATED AUTHOR AUTHOR'S ORGANIZ ATION 05/27/2023 [facility] ysician [facility] DATE CREATED AUTHOR AUTHOR'S ORGANIZ ATION 07/02/2023 [facility] DATE CREATED AUTHOR AUTHOR'S ORGANIZ ATION 11/17/2023 [facility] DATE CREATED AUTHOR AUTHOR'S ORGANIZ ATION 11/17/2023 [facility] dical Specialists EPIC Reason for Visit (unrecogniz ed section and content) Status Reason Specialty Diagnoses / Procedures Referred By Contact Referred To Contact Closed Cardiology / Echocardiography Diagnoses Persistent atrial fibrillation (HCC) Essential hypertension SOB (shortness of breath) Fluid retention Other specified diabetes mellitus with other specified complication, unspecified whether terminal supervisor insulin use (HCC) Class 2 obesity with body mass index (BMI) of 36.0 to 36.9 in adult, unspecified obesity type, unspecified whether serious comorbidity present Procedures ECHO Complete 2D W Doppler W Color Ej Foster MD [address] [place] [address] [place] [address] [facility] Echo [address] [place] [address] Status Reason Specialty Diagnoses / Procedures Referre d By Contact Referred To Contact Closed Radiology Diagnoses Pain in both lower extremities PVD (peripheral vascular disease) (HCC) Procedures VL LOWER EXTREMITY ARTERIAL SEGMENTAL PRESSURES W PPG Ej Foster MD [address] [place] [address] [place] [address] Status Reason Specialty Diagnoses / Procedures Re ferred By Contact Referred To Contact Authorized Cardiology Diagnoses Essential hypertension Persistent atrial fibrillation (HCC) SOB (shortness of breath) Other specified diabetes mellitus with other specified complication, unspecified whether terminal supervisor insulin use (HCC) COVID-19 Procedures Referral to Cardiac Cath GA CARDIOVERSION ELECTIVE ARRHYTHMIA EXTERNAL Ej Foster MD [address] [place] [address] [place] [address] [place] [address] Status Reason Specialty Diagnoses / Procedures Referre d By Contact Referred To Contact Closed Cardiology Diagnoses Persistent atrial fibrillation (HCC) SOB (shortness of breath) Essential hypertension Other specified diabetes mellitus with other specified complication, unspecified whether chcf insulin use (HCC) Class 2 obesity with body mass index (BMI) of 36.0 to 36.9 in adult, unspecified obesity type, unspecified whether serious comorbidity present Pain in both lower extremities Procedures Echo 2D w doppler w color complete Ej Foster MD [address] [place] [address] [place] [address] Reason Onset Date Comments re: PT today [...] be covered. He gave a reference # [id number]. Reason Comments Toenail Care PCP: Kenia Mace 10/11/23, A1C: 6.2, BS: 107 Care Teams (unrecognized sec tion and content) Batch Room Technician Relationship Specialty Start Date End Date Bernie Adam MD [address] [place] [address] PCP - ACO Reach 07/07/22 Bernie Adam MD [address] [place] [address] PCP - General Family Medicine 08/01/22 Batch Room Technician Relationship Specialty Start Date End Date Bernie Adam MD [address] [place] [address] PCP - ACO Reach 07/07/22 Bernie Adam MD [address] [place] [address] PCP - General Family Medicine 08/01/22 Batch Room Technician Relationship Specialty Start Date End Date Bernie Adam MD [address] [place] [address] PCP - ACO Reach 07/07/22 Bernie Adam MD [address] [place] [address] PCP - General Family Medicine 08/01/22 Batch Room Technician Relationship Specialty Start Date End Date Bernie Adam MD [address] [place] [address] PCP - ACO Reach 07/07/22 Bernie Adam MD [address] [place] [address] PCP - General Family Medicine 08/01/22 Batch Room Technician Relationship Specialty Start Date End Date Bernie Adam MD [address] [place] [address] PCP - ACO Reach 07/07/22 Bernie Adam MD [address] [place] [address] PCP - General Family Medicine 08/01/22 Team [...] May 23, 2023 End: May 23, 2023 Batch Room Technician Relationship Specialty Start Date End Date Bernie Adam MD [address] [place] [address] PCP - General Family Medicine 08/01/22 Bernie Adam MD [address] [place] [address] PCP - ACO Reach 06/14/23 Batch Room Technician Relationship Specialty Start Date End Date Bernie Adam MD [address] [place] [address] PCP - General Family Medicine 08/01/22 Bernie Adam MD [address] [place] [address] PCP - ACO Reach 06/14/23 Goals (unrecognized section and content) Goals may [...] BE BASED ON THE PRIMARY CLINICAL RECORDS. [facility] [employer] provides no warranty or guarantee of the accuracy or completeness of information in this document.
--- NOTE | 2023-11-22 13:23 | PM.CN ---
Consult Note: HPI Data of Consult Patient: known to practice within the last 3 years Consult date: 09/18/23 Requesting Physician: Kelley Richard NP Primary Care Provider: Non-Staff Physician, MD Consult Narrative Reason for consult: left leg pain Narrative: 72yom who presents for assessment. continues to have left leg pain and weakness. imaging reviewed, which is significant for left-sided foraminal stenosis at l4-5, l5-s1. continues in a series of provider directed home exercises >6 weeks, without lasting relief. uses tylenol primarily. cannot take nsaids due to blood thinner. denies adverse med side effects. recently underwent left L4-5 L5-S1 TFESI with 85% improvement ongoing, and left hip injection 100% improvement per pt. cc:: CC: Kelley Richard NP Review of Systems ROS Status of ROS 10 or more systems reviewed and unremarkable except as noted in history and below [facility] Medical History (Updated 11/02/23 @ 14:58 by Kelley Richard NP) Diabetes ?E11.9 - Type 2 diabetes mellitus without complications (ICD-10) High cholesterol ?E78.00 - Pure hypercholesterolemia, unspecified (ICD-10) Atrial fibrillation, chronic ?I48.20 - Chronic atrial fibrillation, unspecified (ICD-10) HTN (hypertension) ?I10 - Essential (primary) hypertension (ICD-10) Surgical History History of knee surgery ?Z98.890 - Other specified postprocedural states (ICD-10) History of back surgery ?Z98.890 - Other specified postprocedural states (ICD-10) Meds Home Medications and Allergies Home Medications ?Medication ?Instructions ?Recorded ?Confirmed ?Type allopurinol 100 mg tablet 100 mg PO DAILY 06/22/23 11/13/23 History apixaban 5 mg tablet (Eliquis) 5 mg PO BID 06/22/23 11/13/23 History ascorbic acid (vitamin C) 500 mg 500 mg PO DAILY 06/22/23 11/13/23 History chewable tablet atorvastatin 10 mg tablet 10 mg PO DAILY 06/22/23 11/13/23 History cholecalciferol (vitamin D3) 25 1,000 unit PO DAILY 06/22/23 11/13/23 History mcg (1,000 unit) tablet (Vitamin D3) losartan 50 mg-hydrochlorothiazide 1 tab PO DAILY 06/22/23 11/13/23 History 12.5 mg tablet metformin 500 mg tablet 500 mg PO BID 06/22/23 11/13/23 History metoprolol tartrate 25 mg tablet 12.5 mg PO BID 06/22/23 11/13/23 History omeprazole 20 mg capsule,delayed 20 mg PO DAILY 06/22/23 11/13/23 History release ropinirole 1 mg tablet 1.5 mg PO DAILY 06/22/23 11/13/23 History tamsulosin 0.4 mg capsule 0.4 mg PO DAILY 06/22/23 11/13/23 History baclofen 10 mg tablet 10 mg PO TID #90 tabs 10/04/23 11/13/23 Rx hydrocodone 5 mg-acetaminophen 325 1 tab PO DAILY PRN pain #7 tabs 11/02/23 11/13/23 Rx mg tablet Allergies Allergy/AdvReac Type Severity Reaction Status Date / Time No Known Drug Allergies Allergy Verified 11/13/23 08:57 Exam Constitutional Documenting provider has reviewed patient's vital signs: yes Common normals: no apparent distress, oriented x3, healthy appearing, alert and well nourished General appearance: cooperative HENSC Common normals: normocephalic, hearing grossly normal bilaterally and moist oral mucous membranes Head and scalp: normocephalic Eye Common normals: PERRL Pupil: PERRL Neck & C-Spine Common normals: full ROM General: normal visual inspection Chest Common normals: inspection of chest normal Respiratory Common normals: normal respiratory effort, no retractions and no use of accessory muscles Back & Pelvis Lumbar spine/lower back: ROM limited, pain with ROM, paraspinal muscle tenderness and straight leg raise negative bilaterally Other: decreased sensation to left lateral thigh strength 4/5 in BLE unable to produce radicular pain Extremity Common normals: normal to inspection and full ROM Other: left hip mild pain with internal or external rotation left hip pain following lateral femoral cutaneous nerve Neuro Common normals: oriented x3, CN's II-XII intact bilaterally, moves all extremities, no focal motor deficits, no sensory deficits noted and deep tendon reflexes 2+ bilaterally Sensorium/orientation: alert Motor exam: strength 5/5 throughout and no movement abnormalities noted Psych Common normals: mental status grossly normal, thought process normal, cooperative, affect normal, speech normal and activity/motor behavior normal Speech: normal speech Thought process: normal thought process Results Additional Findings Additional findings: If on a controlled substance or opioids, I have checked an [place] report on this patient and there are no aberrancies noted in the prescribing history.??If on a controlled substance or opioid a drug screen was completed and reviewed within the last year, and if there has not been a drug screen completed we ordered one today to monitor higher risk, state monitored pain medication use. As part of providing excellent, safe, comprehensive care, the following was completed at our patient's visit: 1. A medication reconciliation and review to ensure accurate knowledge of current/active medications, including asking our patients to inform us about any [id number] medications or herbal remedies/nutritional supplements/alternative remedies. 2. A review to specifically ensure our patients have had annual screening for screening for depression, screening for tobacco use, and screening for unhealthy alcohol use. For concerning screenings had a discussion with the patient, provided patient education, and recommended follow-up with primary care provider when appropriate. If patient noted with a risk of falling, they received education on strength, gait, and balance training to prevent future risk of falling. Assessment and Plan Assessment and Plan (1) Osteoarthritis of left hip: (2) Lumbar stenosis with neurogenic claudication: (3) Chronic low back pain: (4) Meralgia paresthetica of left side: Plan left hip injection providing nearly 100% improvement, has stopped norco as pain is minimal continue HEP as tolerated f/u 6 months, sooner if needed
== END 2023-11-22 13:04 | disposition home or self-care (01) ==
LOC: PM 13:04
PROVIDERS: Visit Provider Nurse Practitioner
DX: M16.12 Unilateral primary osteoarthritis, left hip (principal); M48.062 Spinal stenosis, lumbar region with neurogenic claudication; M54.50 Low back pain, unspecified; G57.12 Meralgia paresthetica, left lower limb
CPT/HCPCS: G0463

== ENCOUNTER 2024-01-31 14:19 | Outpatient (OUT) | payer OTHER, SELFPAY ==
--- NOTE | 2024-01-31 14:56 | P.CN_ITS ---
Consult Note: HPI Data of Consult Patient: known to practice within the last 3 years Consult date: 09/18/23 Requesting Physician: Kelley Richard NP Primary Care Provider: Non-Staff Physician, MD Consult Narrative Reason for consult: left leg pain Narrative: 72yom who presents for assessment. continues to have left leg pain and weakness. imaging reviewed, which is significant for left-sided foraminal stenosis at l4- 5, l5-s1. continues in a series of provider directed home exercises >6 weeks, without lasting relief. uses tylenol primarily. cannot take nsaids due to blood thinner. denies adverse med side effects. recently underwent left L4-5 L5-S1 TFESI with >50% improvement for 3 months. worsening pain over the last 2 weeks. cc:: CC: Kelley Richard NP Review of Systems ROS Status of ROS 10 or more systems reviewed and unremark able except as noted in history and below Musculoskeletal Reports: back pain and extremity pain PFSH PFSH Medical History (Updated 11/02/23 @ 14:58 by Kelley Richard NP) Diabetes ?E11.9 - Type 2 diabetes mellitus without complications (ICD-10) High cholesterol ?E78.00 - Pure hypercholesterolemia, unspecified (ICD-10) Atrial fibrillation, chronic ?I48.20 - Chronic atrial fibrillation, unspecified (ICD-10) HTN (hypertension) ?I10 - Essential (primary) hypertension (ICD-10) Surgical History History of knee surgery ?Z98.890 - Other specified postprocedural states (ICD-10) History of back surgery ?Z98.890 - Other specified postprocedural states (ICD-10) Meds Home Medications and Allergies Home Medications ?Medication ?Instructions ?Recorded ?Confirmed ?Type allopurinol 100 mg tablet 100 mg PO DAILY 06/22/23 11/13/23 History apixaban 5 mg tablet (Eliquis) 5 mg PO BID 06/22/23 11/13/23 History ascorbic acid (vitamin C) 500 mg 500 mg PO DAILY 06/22/23 11/13/23 History chewable tablet atorvastatin 10 mg tablet 10 mg PO DAILY 06/22/23 11/13/23 History cholecalciferol (vitamin D3) 25 1,000 unit PO DAILY 06/22/23 11/13/23 History mcg (1,000 unit) tablet (Vitamin D3) losartan 50 mg-hydrochlorothiazide 1 tab PO DAILY 06/22/23 11/13/23 History 12.5 mg tablet metformin 500 mg tablet 500 mg PO BID 06/22/23 11/13/23 History metoprolol tartrate 25 mg tablet 12.5 mg PO BID 06/22/23 11/13/23 History omeprazole 20 mg capsule,delayed 20 mg PO DAILY 06/22/23 11/13/23 History release ropinirole 1 mg tablet 1.5 mg PO DAILY 06/22/23 11/13/23 History tamsulosin 0.4 mg capsule 0.4 mg PO DAILY 06/22/23 11/13/23 History baclofen 10 mg tablet 10 mg PO TID #90 tabs 10/04/23 11/13/23 Rx hydrocodone 5 mg-acetaminophen 325 1 tab PO DAILY PRN pain #7 tabs 11/02/23 11/13/23 Rx mg tablet Allergies Allergy/AdvReac Type Severity Reaction Status Date / Time No Known Drug Allergies Allergy Verified 11/13/23 08:57 Exam Narrative Exam Narrative: Psych-alert and oriented x 3. Attentive and appropriate, constitutionally normal, displays normal mood and affect per situation. There are no obvious deficits in memory, reasoning, or intellect.? Skin-no obvious rashes, bruising, erythema noted to the patient's area of pain.? Extremities- extremities are warm with minimal edema and palpable pulses. Lumbar-tenderness to palpation noted in the lumbar spine and paraspinal musculature. Pain is elicited with flexion, extension, and lateral rotation of the lumbar spine. Range of motion is diminished with these motions. Facet loading maneuvers are positive.? Strength-noted to be unremarkable with the exception of decreased strength rated at 4 out of 5 in left quadriceps femoris. Sensory-no notable sensory deficits in the bilateral lower extremities to touch or pinprick in all dermatomal distributions with the exception to decreased sensation to the left l4, 5 dermatomal distribution Coordination remains intact.? Gait remains non-antalgic. Results Additional Findings Additional findings: If on a controlled substance or opioids, I have checked an [place] report on this patient and there are no aberrancies noted in the prescribing history.??If on a controlled substance or opioid a drug screen was completed and reviewed within the last year, and if there has not been a drug screen completed we ordered one today to monitor higher risk, state monitored pain medication use. As part of providing excellent, safe, comprehensive care, the following was completed at our patient's visit: 1. A medication reconciliation and review to ensure accurate knowledge of current/active medications, including asking our patients to inform us about any [id number] medications or herbal remedies/nutritional supplements/alternative remedies. 2. A review to specifically ensure our patients have had annual screening for screening for depression, screening for tobacco use, and screening for unhealthy alcohol use. For concerning screenings had a discussion with the patient, provided patient education, and recommended follow-up with primary care provider when appropriate. If patient noted with a risk of falling, they received education on strength, gait, and balance training to prevent future risk of falling. Assessment and Plan Assessment and Plan (1) Lumbar stenosis with neurogenic claudication: (2) Osteoarthritis of left hip: (3) Chronic low back pain: (4) Meralgia paresthetica of left side: Plan repeat left L4-5 L5-S1 TFESI under fluoroscopy, risks vs benefits reviewed start gabapentin 300mg BID continue HEP as tolerated f/u after injection
== END 2024-01-31 14:20 | disposition home or self-care (01) ==
LOC: PM 14:19
PROVIDERS: Visit Provider Nurse Practitioner
DX: M48.062 Spinal stenosis, lumbar region with neurogenic claudication (principal); M16.12 Unilateral primary osteoarthritis, left hip; M54.50 Low back pain, unspecified; G57.12 Meralgia paresthetica, left lower limb
CPT/HCPCS: G0463

== ENCOUNTER 2024-03-04 08:53 | Day surgery (SDC) | payer OTHER, SELFPAY ==
--- OUTSIDE RECORDS SUMMARY | 2024-03-04 09:00 | XMS_ITS | CCD ---
Author Organization [facility] Care Team Providers Care Excelsior Picker Name Role Phone Unavailable Primary Care Provider Unavailabl e MISC, DOCTOR Primary Care Unavailable MATTEVI, ARMANDO Admitting Unavailable MATTEVI, ARMANDO Consulting Unavailable MATTEVI, ARMANDO Attending Unavailable Rupesh Ulrich Consulting Unavailable Jeannine Evangelista Primary Care Provider Tonja MOLD PRESSER - SENIOR TELECOMMUNICATIONS ENGINEERJeannine Primary Care P rovider Bernie Adam MD Unavailable Bernie Adam MD Primary Care Provider EVANS Redd Attending Provider AWAIS Evangelista Primary Care Provider AWAIS Evangelista Primary Care Provider EVANS Redd Attending Provider Marina Redd Attending Unavailable Marina Redd Admitting Unavailable Jeannine Evangelista Primary Care Unavailable DAVID AWAD JR Attending UnavailDAVID Rahman JR Referring UnavailJEANNINE Pierce Primary Care Unavailab DVAID Roman JR Attending UnavailDAVID Rahman JR Referring UnavailJEANNINE Pierce Primary Care Unavailab cipriano Guillen MD, Ever Gonzalez Attending Unavailable Mindy SANTAMARIA, Andzuri Gonzalez Attending Unavailable Mindy SANTAMARIA, Ever Gonzalez Attending Unavailable Mindy SANTAMARIA, Ever Gonzalez Attending Unavailable Bernie Adam MD Unavailable Tonja MOLD PRESSER [facility] reg ARIANNA LOU Attending Unavailable MARINA REDD Attending Unavailable REDD, MARINA Naidu Referring Unavailable REDD, MARINA Naidu Attending Unavailable REDD, MARINA Naidu Referring Unavailable BLACKSTON, YULIYA Hwang Attending Unavailable REDD, MARINA Naidu Referring Unavailable BLACKSTON, YULIYA Hwang Attending Unavailable KAMPFER, KENIA Referring Unavailable BLACKSTON, YULIYA Hwang Attending Unavailable REDD, MARINA Naidu Referring Unavailable BLACKSTON, YULIYA T Attending Unavailable REDD, MARINA Naidu Referring Unavailable BLACKSTON, YULIYA Hwang Attending Unavailable REDD, MARINA Naidu Referring Unavailable BLACKSTON, YULIYA T Attending Unavailable REDD, MARINA Naidu Referring Unavailable REDD, MARINA Naidu Attending Unavailable REDD, MARINA Naidu Referring Unavailable JR. MARIA GUADALUPE, DAVID Matthews Attending Unavaila ble KAMPFER, KENIA Attending Unavailable BOBBY PINK Attending Unavailable JR. MARIA GUADALUPE, DAVID Matthews Referring Unavaila ble KAMPFER, KENIA Attending Unavailable STEFFANY, ARIANNA Alfonso Attending Unavailable KAMPFER, KENIA Attending Unavailable KAMPFER, KENIA Attending Unavailable RUS, ARIANNA Alfonso Attending Unavailable EVANGELISTA, JEANNINE Alfonso Attending Unavailab le KAMPFITO, KENIA Attending Unavailable SHALINI MORROW Referring Unavailable TONJA, JEANNINE Alfonso Primary Care Unavailab SHALINI Weber Referring Unavailable TONJA, JEANNINE Alfonso Primary Care Unavailab EJ Johnson Referring Unavailable TONJA, JEANNINE Alfonso Primary Care Unavailab EJ Johnson Attending Unavailable EJ FOSTER Referring Unavailable JEANNINE EVANGELISTA Primary Care Unavailab le Medications Current Medications Medication Drug Class(es) Dates Sig (Normalized) Sig (Original) allopurinol 100 mg oral tablet (20 sources) Xanthine Oxidase Inhibitor Start: 10-18-2022 allopurinol (Zyloprim) 100 MG tablet Indications: 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 TAKE 1 TABLET IN THE MORNING 90 tablet 1 09/15/2023 Active amiodarone hydrochloride 200 mg oral tablet (2 sources) Antiarrhythmic Start: 02-23-2024 take 1 tablet by mouth once daily amiodarone (CORDARONE) 200 MG tablet Take 1 tablet by mouth daily 30 tablet 1 02/23/2024 Active amitriptyline hydrochloride 10 mg oral tablet (20 sources) Tricyclic Antidepressant Start: 07-18-2023 take 1 tablet by mouth at bedtime amitriptyline (Elavil) 10 MG tablet Indications: Insomnia, unspecified type , Lumbar radiculopathy Take 1 tablet (10 mg) by mouth at bedtime 90 tablet 07/18/2023 Active apixaban 5 mg oral tablet (20 sources) Factor Xa Inhibitor Start: 04-04-2023 End: 10-24-2023 take 1 tablet by mouth twice daily apixaban (ELIQUIS) 5 MG TABS tablet Take 1 tablet by mouth 2 times daily 180 tablet 3 10/02/2023 Active Start: 01-22-2020 End: 09-30-2020 take 1 tablet by mouth twice daily apixaban (ELIQUIS) 5 MG TABS tablet Take 1 tablet by mouth 2 times daily for 14 days 28 tablet 0 09/16/2020 09/30/2020 Active Eliquis 5 MG tab let every 12 (twelve) hours. 0 Active atorvastatin 10 mg oral tablet (20 sources) HMG-CoA Reductase Inhibitor Start: 12-13-2023 atorvastatin (Lipito r) 10 MG tablet Indications: Other hyperlipidemia (CMS/HCC) TAKE 1 TABLET IN THE MORNING 90 tablet 3 12/13/2023 Active Start: 06-16-2023 atorvastatin ( Lipitor) 10 MG tablet Indications: Other hyperlipidemia (CMS/HCC) TAKE 1 TABLET IN THE MORNING 90 tablet 1 06/16/2023 Active Start: 12-26-2022 atorvastatin ( Lipitor) 10 MG tablet Indications: Other hyperlipidemia (CMS/HCC) TAKE 1 TABLET IN THE MORNING 90 tablet 0 12/26/2022 Active Bioflavonoid Products (VITAMIN C PLUS PO) (20 sources) Bioflavonoid Products (VITAMIN C PLUS PO) Take by mouth Active clindamycin 300 mg oral capsule (2 sources) Lincosamide Antibacterial Start: End: take 1 capsule by mouth in the morning, then take 1 capsule by mouth in the evening, then take 1 capsule by mouth at bedtime clindamycin (Cleocin) 300 MG capsule Indications: Dental abscess Take 1 capsule (300 mg) by mouth in the morning and 1 capsule (300 mg) in the evening and 1 capsule (300 mg) before bedtime. Do all this for 10 days. 30 capsule 10/11/2023 10/21/2023 Active gabapentin 300 mg oral capsule (2 sources) Anti-epileptic Agent Start: take 1 capsule by mouth in the morning gabapentin (Neurontin) 300 MG capsule Take 300 mg by mouth in the morning and 300 mg before bedtime. 01/31/2024 Active hydroCHLOROthiazide 12.5 mg / losartan potassium 50 mg oral tablet (20 sources) Thiazide Diuretic, Angiotensin 2 Receptor Lex Start: losartan-hydroCHLO ROthiazide (Hyzaar) 50-12.5 MG tablet Indications: Primary hypertension (CMS/HCC) TAKE 1 TABLET IN THE MORNING 90 tablet 1 09/25/2023 Active Start: 07-28-2022 take 1 tablet by abdullahi th in the morning losartan-hydroCHLOROthiazide (Hyzaar) 50-12.5 MG tablet Indications: Primary hypertension (CMS/HCC) Take 1 tablet by mouth in the morning. 90 tablet 0 07/28/2022 Active Start: 01-26-2022 losartan-hydro CHLOROthiazide (HYZAAR) 50-12.5 MG per tablet Indications: Essential hypertension TAKE 1 TABLET DAILY 90 tablet 3 01/26/2022 Active 3 ml insulin glargine 100 unt/ml pen injector (2 sources) Insulin Analog Start: 12-29-2019 insulin glargi ne (LANTUS;BASAGLAR) 100 UNIT/ML injection pen Inject 10 Units into the skin 2 times daily 0 12/29/2019 Active Lactobacillus Rhamnosus, GG, (CULTURELLE PO) (6 sources) Lactobacillus Rh amnosus, GG, (CULTURELLE PO) Take by mouth 0 Active metFORMIN hydrochloride 500 mg oral tablet (20 sources) Biguanide Start: 11-20-2023 End: 02-19-2024 metFORMIN (Glucophage) 500 MG tablet Indications: Type 2 diabetes mellitus with diabetic peripheral angiopathy without gangrene (CMS/HCC) TAKE 1 TABLET IN THE MORNING AND 1 TABLET IN THE EVENING WITH MEALS 180 tablet 3 02/19/2024 Active Start: 09-13-2023 metFORMIN (Glu cophage) 500 MG tablet Indications: Type 2 diabetes mellitus with diabetic peripheral angiopathy without gangrene (CMS/HCC) TAKE 1 TABLET IN THE MORNING AND 1 TABLET IN THE EVENING WITH MEALS 180 tablet 09/13/2023 Active metoprolol tartrate 25 mg oral tablet (20 sources) beta-Adrenergic Lex Start: 02-23-2024 take 1 tablet by mouth twice daily metoprolol tartrate (LOPRESSOR) 25 MG tablet Take 1 tablet by mouth 2 times daily 30 tablet 02/23/2024 Active Start: 02-05-2024 take 40-49.9 tablets by mouth twice daily metoprolol tartrate (LOPRESSOR) 25 MG tablet Indications: Permanent atrial fibrillation (HCC) , Chronic anticoagulation , Essential hypertension , Type 2 diabetes mellitus with diabetic nephropathy, without long-term current use of insulin (HCC) , History of COVID-19 , Obesity, Class III, BMI 40-49.9 (morbid obesity) Take 2 tablets by mouth 2 times daily 90 tablet 3 02/05/2024 Active Start: 09-15-2023 End: 02-20-2024 take 0.5 tablet by mouth in the [...] morning and evening.. 90 tablet 1 09/15/2023 02/20/2024 Discontinued (Med list cleanup) Start: 03-10-2020 take 0.5 tablet by m [...] mellitus with other specified complication, unspecified whether lobsterman insulin use (HCC) , Class 2 obesity with body mass index (BMI) of 36.0 to 36.9 in adult, unspecified obesity type, unspecified whether serious comorbidity present TAKE 1 TABLET BY MOUTH TWICE DAILY 180 tablet 3 01/22/2020 Active End: 02-23-2024 take 1 tablet by mouth in the morning metoprolol tartrate (Lopressor) 50 MG tablet Take 50 mg by mouth in the morning and 50 mg before bedtime. Active metoprolol tartr ate (Lopressor) 25 MG tablet every 12 (twelve) hours. 0 Active omeprazole 20 mg delayed release oral capsule (20 sources) Proton Pump Inhibitor Start: 01-21-2020 take 1 capsule by mouth once daily omeprazole (PRILOSEC) 20 MG delayed release capsule Take 1 capsule by mouth Daily 01/21/2020 Active rOPINIRole 1 mg oral tablet (20 sources) Nonergot Dopamine Agonist Start: 04-04-2023 End: 01-31-2024 take 1 tablet by mouth at bedtime rOPINIRole (Requip) 1 MG tablet Indications: Restless legs syndrome Take 1 tablet (1 mg) by mouth at bedtime 90 tablet 1 01/31/2024 Active Start: 10-04-2022 End: 04-02-2023 take 1 tablet by mouth at bedtime rOPINIRole (Requip) 1 MG tablet Indications: Restless legs syndrome Take 1 tablet (1 mg) by mouth at bedtime. 90 tablet 1 10/04/2022 04/02/2023 Active Start: 09-11-2020 take 1 tablet by abdullahi th once daily, then take 1 tablet by mouth once daily rOPINIRole (REQUIP) 0.25 MG tablet Take 1 tablet by mouth daily Take 1 1/2 daily 09/11/2020 Active 3 ml sodium chloride 9 mg/ml injection (3 sources) Start: 02-12-2020 0.9 % sodium c hloride infusion Start: 02-12-2020 sodium chlorid e flush 0.9 % injection 10 mL tamsulosin hydrochloride 0.4 mg oral capsule (20 sources) alpha-Adrenergic Lex Start: 09-15-2023 tamsu losin [...] 0 11/01/2022 Active VITAMIN D, CHOLECALCIFEROL, PO (20 sources) VITAMIN D, CHOLECALCIFEROL, PO Vitamin D Active VITAMIN D, OWEN CALCIFEROL, PO Vitamin D 0 Active Completed/Discontinued Medications Medication Drug Class(es) Dates Sig (Normalized) Sig (Original) acetaminophen 325 mg / HYDROcodone bitartrate 5 mg oral tablet (20 sources) Opioid Agonist Start: 06-28-2023 End: 02-20-2024 take 1 tablet by mouth twice daily as needed HYDROcodone-acetami nophen ([place]ore) 5-325 MG tablet Take 1 tablet by mouth 2 (two) times a day as needed 06/28/2023 02/20/2024 Discontinued (Therapy completed) [id number] 200 actuat albuterol 0.09 mg/actuat metered dose inhaler (12 sources) beta2-Adrenergic Agonist Start: 12-26-2023 End: 12-25-2024 take 2 puff(s) by inhalation every four hours for wheezing albuterol HFA 90 mcg/act inhaler Indications: Bronchitis Inhale 2 puffs every 4 (four) hours if needed for wheezing 18 g 12/26/2023 02/20/2024 Discontinued amoxicillin 500 mg / clavulanate 125 mg oral tablet (7 sources) Penicillin-class Antibacterial Start: 12-26-2023 End: 01-05-2024 take 1 tablet by mouth in the morning amoxicillin-clavula uday (Augmentin) 500-125 MG tablet Indications: Acute right otitis media Take 1 tablet (500 mg) by mouth in the morning and 1 tablet (500 mg) before bedtime. Do all this for 10 days. 20 tablet 12/26/2023 01/05/2024 baclofen 10 mg oral tablet (19 sources) gamma-Aminobutyric Acid-ergic Agonist Start: 10-04-2023 End: 02-20-2024 take 1 tablet by mouth in the morning, then take 1 tablet by mouth in the evening, then take 1 tablet by mouth at bedtime baclofen (Lioresal) 10 MG tablet Take 10 mg by mouth in the morning and 10 mg in the evening and 10 mg before bedtime. 10/04/2023 02/20/2024 Discontinued (Therapy completed) benzonatate 100 mg oral capsule (5 sources) Non-narcotic Antitussive Start: 12-28-2023 End: 01-05-2024 take 1 capsule by mouth three times daily as needed for cough benzonatate (Tessalon Perles) 100 MG capsule Indications: Bronchitis Take 1 capsule (100 mg) by mouth 3 (three) times a day as needed for cough for up to 7 days Do not crush or chew. 20 capsule 12/29/2023 01/05/2024 cyclobenzaprine hydrochloride 10 mg oral tablet (19 sources) Muscle Relaxant Start: 09-20-2023 End: 02-20-2024 take 1 tablet by mouth three times daily as needed cyclobenzaprine (Flexeril) 10 MG tablet Take 10 mg by mouth 3 (three) times a day as needed 09/20/2023 02/20/2024 Discontinued (Therapy completed) digoxin 0.125 mg oral tablet (3 sources) Cardiac Glycoside Start: 01-22-2020 End: 02-12-2020 take 36-36.9 tablets by mouth once daily digoxin (LANOXIN) 125 MCG tablet Indications: Persistent atrial fibrillation (HCC) , SOB (shortness of breath) , Fluid retention , Essential hypertension , Other specified diabetes mellitus with other specified complication, unspecified whether care home insulin use (HCC) , Class 2 obesity with body mass index (BMI) of 36.0 to 36.9 in adult, unspecified obesity type, unspecified whether serious comorbidity present Take 1 tablet by mouth daily 90 tablet 3 01/22/2020 02/12/2020 Discontinued (Stop Taking at Discharge) 2 ml fentaNYL 0.05 mg/ml injection (1 source) Opioid Agonist Start: 02-12-2020 End: 02-12-2020 fentaNYL (SUBLIMAZE) injection 12 hr guaiFENesin 600 mg extended release oral tablet (6 sources) Start: 01-01-2024 End: 12-31-2024 take 2 tablets by mouth in the morning, then take 2 tablets by mouth every twelve hours at bedtime guaiFENesin (Mucinex) 600 MG 12 hr tablet Indications: Bronchitis Take 2 tablets (1,200 mg) by mouth in the morning and 2 tablets (1,200 mg) before bedtime. Do not crush, chew, or split.. 120 tablet 11 01/01/2024 02/20/2024 Discontinued (Therapy completed) 3 ml insulin lispro 100 unt/ml pen [...] Start: 02-12-2020 End: 02-12-2020 midazolam (VERSED) injection predniSONE 10 mg oral tablet (3 sources) Start: 12-29-2023 End: 01-03-2024 take 1 tablet by mouth in the morning predniSONE (Deltasone) 10 MG tablet Indications: Acute cough Take 1 tablet (10 mg) by mouth in the morning and 1 tablet (10 mg) before bedtime. Do all this for 5 days. 10 tablet 12/29/2023 12/29/2023 Discontinued Problems Active Problems Problem Classification Problem Date Documented Date Episodic/Chronic Cardiac dysrhythmias (20 sources) Unspecified atrial fibrillation; 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: [Persistent atrial fibrillation] Onset: 12-17-2019 01-22-2020 Chronic Chronic obstructive pulmonary disease and bronchiectasis (6 sources) Bronchitis; 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: [Bronchitis, not specified as acute or chronic] 12-26-2023 Episodic Diabetes mellitus with complications (8 sources) 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 diabetes mellitus; 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: [Type 2 diabetes mellitus with diabetic nephropathy] Onset: 08-30-2021 02-05-2024 Chronic Diabetes mellitus without complication (20 sources) Diabetes mellitus; 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: [Type 2 diabetes mellitus well controlled] Onset: 01-02-2020 Chronic Disorders of lipid metabolism (20 sources) Hyperlipidemia; 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: [Hyperlipidemia, unspecified] Onset: 12-12-2018 Resolved: 10-04-2022 07-18-2022 Chronic Esophageal disorders (20 sources) Gastroesophageal reflux disease without esophagitis; 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: [Gastro-esophageal reflux disease without esophagitis] Onset: 07-18-2022 07-18-2022 Chronic Essential hypertension (20 sources) Essential hypertension; 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: [Essential (primary) hypertension] Onset: 01-22-2020 01-22-2020 Chronic Fracture of neck of femur (hip) (1 source) Stress fracture, left femur, initial encounter for fracture; 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: [Stress fracture, left femur, initial encounter for fracture] Onset: 06-14-2023 Episodic Gout and other crystal arthropathies (20 sources) 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; 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: [Idiopathic chronic gout, left ankle and foot, without tophus (tophi)] Onset: 07-29-2015 07-18-2022 Chronic Hyperplasia of prostate (2 sources) Benign prostatic hyperplasia; 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: [Benign prostatic hyperplasia with lower urinary tract symptoms] 02-26-2024 Chronic Nutritional deficiencies (20 sources) Vitamin D deficiency; 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: [Vitamin D deficiency, unspecified] Onset: 05-14-2020 10-04-2022 Chronic Osteoarthritis (20 sources) Bilateral osteoarthritis of knees; 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: [Bilateral primary osteoarthritis of knee] Onset: 10-04-2022 10-04-2022 Chronic Other aftercare (2 sources) Long-term current use of anticoagulant; 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: [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] 02-05-2024 Episodic Other aftercare (1 source) 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; 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: [[facility]DC (current) use of anticoagulants] Onset: 02-05-2024 Episodic Other connective tissue disease (20 sources) Artificial knee joint present; 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: [Presence of unspecified artificial knee joint] Onset: 03-03-2021 10-04-2022 Chronic Other connective tissue disease (20 sources) History of total knee arthroplasty; 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: [...] Other hereditary and degenerative nervous system conditions (20 sources) Restless legs; 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: [Restless legs syndrome] Onset: 07-28-2022 07-28-2022 Chronic Other infections; including parasitic (20 sources) Post-viral disorder; 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: [[id number] condition] Onset: 04-27-2020 10-04-2022 Chronic Other infections; including parasitic (2 sources) Personal history of other infectious and parasitic diseases; 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: [History of COVID-19] 02-05-2024 Episodic Other inflammatory condition of skin (20 sources) Psoriasis; 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: [Psoriasis, unspecified] Onset: 06-26-2017 10-04-2022 Chronic Other lower respiratory disease (3 sources) Shortness of breath; 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: [SHORTNESS OF BREATH] Onset: 12-16-2019 Episodic Other lower respiratory disease (4 sources) Dyspnea; 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: [Shortness of breath] Episodic Other lower respiratory disease (1 source) Cough; 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: [Acute cough] 12-29-2023 Episodic Other nervous system disorders (20 sources) Difficulty walking; 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: [Difficulty in walking, not elsewhere classified] Onset: 03-07-2021 10-04-2022 Chronic Other nutritional; endocrine; and metabolic disorders (4 sources) Obesity; 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: [Obesity, unspecified] Chronic Other nutritional; endocrine; and metabolic disorders (4 sources) Body mass index 40+ - severely obese; 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: [Morbid (severe) obesity due to excess calories] 02-05-2024 Chronic Other nutritional; endocrine; and metabolic disorders (2 sources) Obesity caused by energy imbalance; 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: [Morbid (severe) obesity due to excess calories] 02-26-2024 Chronic Other nutritional; endocrine; and metabolic disorders (1 source) Morbid (severe) obesity due to excess calories; 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: [Morbid (severe) obesity due to excess calories] Onset: 02-05-2024 Chronic Other screening for suspected conditions (not mental disorders or infectious disease) (2 sources) Patient encounter status; 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: [Encounter for screening for malignant neoplasm of prostate] 02-20-2024 Episodic Other skin disorders (1 source) Dystrophia unguium; 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: [Nail dystrophy] 11-15-2023 Episodic Otitis media and related conditions (2 sources) Acute right otitis media; 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: [Otitis media, unspecified, right ear] 12-26-2023 Episodic Peripheral and visceral atherosclerosis (20 sources) Peripheral vascular disease; 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: [Peripheral vascular disease, unspecified] Onset: 08-30-2021 10-04-2022 Chronic Residual codes; unclassified (4 sources) Obstructive sleep apnea syndrome; 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: [Obstructive sleep apnea (adult) (pediatric)] 02-23-2024 Chronic Residual codes; unclassified (3 sources) Body fluid retention; 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: [Fluid retention] Episodic Residual codes; unclassified (20 sources) Peripheral edema; 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: [Edema, unspecified] Onset: 11-28-2018 10-04-2022 Episodic Residual codes; unclassified (2 sources) Insomnia; 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: [Insomnia, unspecified] 02-26-2024 Episodic Residual codes; unclassified (2 sources) Colon cancer screening declined; 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: [Procedure and treatment not carried out because of patient's decision for unspecified reasons] 02-26-2024 Episodic Spondylosis; intervertebral disc disorders; other back problems (20 sources) Acute low back pain; 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: [Acute left-sided low back pain without sciatica] Onset: 10-25-2022 10-25-2022 Episodic Sprains and strains (1 source) Strain of muscle of left thigh; 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: [Strain of unspecified muscles, fascia and tendons at thigh level, left thigh, subsequent encounter] 03-23-2023 Episodic Unclassified (1 source) COVID-19; 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: [COVID-19] Onset: 12-18-2019 Unclassified (1 source) Permanent atrial fibrillation; 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: [Permanent atrial fibrillation] Onset: 02-05-2024 Unclassified (1 source) Personal history of COVID-19; 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: [Personal history of COVID-19] Onset: 02-05-2024 Past or Other Problems Problem Classification Problem Date Documented Date Episodic/Chronic Diabetes mellitus without complication (20 sources) Impaired fasting glycemia; 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: [Impaired fasting glucose] Onset: 12-12-2018 10-04-2022 Episodic Disorders of teeth and jaw (2 sources) Dental abscess; 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: [Periapical abscess without sinus] 10-11-2023 Episodic Mycoses (20 sources) Tinea pedis; 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: [Tinea pedis] Onset: 11-28-2018 10-04-2022 Episodic Other acquired deformities (20 sources) Acquired unequal leg length; 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: [Unequal limb length (acquired), unspecified site] Onset: 05-26-2021 10-04-2022 Episodic 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 infection and poliomyelitis (20 sources) H/O: poliomyelitis; 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: [Personal history of poliomyelitis] Onset: 07-29-2015 10-04-2022 Episodic Other connective tissue disease (20 sources) Muscle weakness of limb; 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: [Other symptoms and signs involving the musculoskeletal system] Onset: 06-16-2023 06-16-2023 Episodic Other nervous system disorders (20 sources) Numbness; 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: [Anesthesia of skin] Onset: 06-16-2023 06-16-2023 Episodic Other nervous system disorders (20 sources) Paresthesia; 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: [Paresthesia of skin] Onset: 06-16-2023 06-16-2023 Episodic Other non-traumatic joint disorders (20 sources) Hip pain; 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: [Pain in left hip] Onset: 10-25-2022 10-25-2022 Episodic Other upper respiratory disease (20 sources) Pain in face; 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: [Other specified disorders of nose and nasal sinuses] Onset: 12-12-2018 Resolved: 09-19-2023 10-04-2022 Episodic Pneumonia (except that caused by tuberculosis or sexually transmitted disease) (20 sources) Other viral pneumonia; 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: [Viral pneumonia] Onset: 12-16-2019 Resolved: 09-19-2023 01-22-2020 Episodic Viral infection (20 sources) Other specified viral infection; 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: [COVID-19] Onset: 12-16-2019 Resolved: 09-19-2023 01-22-2020 Episodic Results Test Name Value Interpretation Reference Range Facility EKG 12 LeadOrdered By: Danny Mascorro on 02-23-2024 Q-T Interval 382 ms [facility] Work Phone: QRS Duration 96 ms [facility] Work Phone: QTc Calculation ([place]azett) 451 ms [facility] Work Phone: R [place] -23 degrees [facility] Work Phone: T [place] 22 degrees [facility] Work Phone: Ventricular Rate 84 BPM [facility] Work Phone: [facility] Work Phone: EKG 12 [place] 02-23-2024 Atrial fibrillation Abnormal ECG ECG not diagnostic for Acute Coronary Syndrome; consider clinical findings When compared with ECG of 12-FEB-2020 08:26, Atrial fibrillation has replaced Sinus rhythm Confirmed by ARIANNA MASCORRO ([id number]) on 02/23/2024 10:09:04 PM [facility] Arianna Mascorro MD - 02/23/2024 Atrial fibrillation Abnormal ECG ECG not diagnostic for Acute Coronary Syndrome; consider clinical findings When compared with ECG of 12-FEB-2020 08:26, Atrial fibrillation has replaced Sinus rhythm Confirmed by ARIANNA MASCORRO ([id number]) on 02/23/2024 10:09:04 PM [facility] Atrial Rate 117 BPM [facility] Q-T Interval 406 ms [facility] QRS Duration 96 ms [facility] QTc Calculation (Bazett) 471 ms [facility] R [place] -23 degrees [facility] T [place] -19 degrees [facility] Ventricular Rate 81 BPM [facility] Normal sinus rhythm with a short run of atrial tachycardia Nonspecific T wave abnormality Prolonged QT Abnormal ECG When compared with ECG of 23-FEB-2024 11:06, (unconfirmed) normal sinus rhythm with a short run of atrial tachycardia has replaced atrial fibrillation Nonspecific T wave abnormality now evident in Anterior leads Confirmed by ARIANNA MASCORRO ([id number]) on 02/23/2024 9:25:47 PM [facility] Arianna Mascorro MD - 02/23/2024 Normal sinus rhythm with a short run of atrial tachycardia Nonspecific T wave abnormality Prolonged QT Abnormal ECG When compared with ECG of 23-FEB-2024 11:06, (unconfirmed) normal sinus rhythm with a short run of atrial tachycardia has replaced atrial fibrillation Nonspecific T wave abnormality now evident in Anterior leads Confirmed by ARIANNA MASCORRO ([id number]) on 02/23/2024 9:25:47 PM [facility] Atrial Rate 56 BPM [facility] P [place] 17 degrees [facility] P-R Interval 204 ms [facility] Q-T Interval 442 ms [facility] QRS Duration 98 ms [facility] QTc Calculation (Bazett) 426 ms [facility] R [place] -25 degrees [facility] [place] 5 degrees [facility] Ventricular Rate 56 BPM [facility] Sinus bradycardia Otherwise normal ECG When compared with ECG of 23-FEB-2024 12:06, (unconfirmed) Previous ECG has undetermined rhythm, needs review Confirmed by ARIANNA MASCORRO ([id number]) on 02/23/2024 9:11:49 PM [facility] Arianna Mascorro MD - 02/23/2024 Sinus bradycardia Otherwise normal ECG When compared with ECG of 23-FEB-2024 12:06, (unconfirmed) Previous ECG has undetermined rhythm, needs review Confirmed by ARIANNA MASCORRO ([id number]) on 02/23/2024 9:11:49 PM [facility] 25-hydroxyvitamin D3 [Mass/V ol]on 02-21-2024 25-hydroxyvitamin D [Mass/Vol] 36 ng/mL 30 - 100 ng/mL [facility] Comment on above: Vitamin D Status 25- OH Vitamin D: Deficiency: <20 ng/mL Insufficiency: 20 - 29 ng/mL Optimal: > or = 30 ng/mL For 25-OH Vitamin D testing on patients on D2-supplementation and patients for whom quantitation of D2 and D3 fractions is required, the QuestAssureD(TM) 25-OH VIT D, (D2,D3), LC/MS/MS is recommended: order code 36047 (patients >2yrs). See Note 1 Note 1 For additional information, please refer to http://education.[employer]/faq/PNZ394 (This link is being provided for informational/ educational purposes only.) Laboratory - Chemistry and C hemistry - challengeon 02-21-2024 Albumin [Mass/Vol] 4.1 g/dL 3.6 - 5.1 g/dL [facility] Albumin/Globulin [Mass ratio] 2.2 {ratio} [facility] ALP [Catalytic activity/Vol] 72 U/L 35 - 144 U/L [facility] ALT [Catalytic activity/Vol] 13 U/L 9 - 46 U/L [facility] AST [Catalytic activity/Vol] 16 U/L 10 - 35 U/L [facility] Bilirubin [Mass/Vol] 0.6 mg/dL 0.2 - 1 .2 mg/dL [facility] Calcium [Mass/Vol] 9.1 mg/dL 8.6 - 10. 3 mg/dL [facility] Chloride [Moles/Vol] 102 mmol/L 98 - 11 0 mmol/L [facility] CO2 [Moles/Vol] 27 mmol/L 20 - 32 mmol/L [facility] Creatinine [Mass/Vol] 0.87 mg/dL 0.70 - 1.28 mg/dL [facility] GFR/1.73 sq M.predicted among non-blacks MDRD (S/P/Bld) [Vol rate/Area] 90 mL/min/{1.73_m2} > OR = 60 mL/min/1.73m2 [facility] Globulin (S) [Mass/Vol] 1.9 g/dL [facility] Glucose [Mass/Vol] 139 mg/dL High 65 - 99 mg/dL [facility] Comment on above: Fasting reference interval For someone without known diabetes, a glucose value >125 mg/dL indicates that they may have diabetes and this should be confirmed with a follow-up test. Potassium [Moles/Vol] 4 mmol/L 3.5 - 5.3 mmol/L [facility] Prostate specific Ag [Mass/Vol] 0.33 ng/mL < OR = 4.00 [facility] Comment on above: The total PSA value from this assay system is standardized against the WHO standard. The test result will be approximately 20% lower when compared to the equimolar-standardized total PSA (Abelardo Truxton). Comparison of serial PSA results should be interpreted with this fact in mind. This test was performed using the Siemens chemiluminescent method. Values obtained from different assay methods cannot be used interchangeably. PSA levels, regardless of value, should not be interpreted as absolute evidence of the presence or absence of disease. Protein [Mass/Vol] 6 g/dL Low 6.1 - 8.1 g/dL [facility] Sodium [Moles/Vol] 141 mmol/L 135 - 146 mmol/L [facility] Urate [Mass/Vol] 7.5 mg/dL 4.0 - 8.0 mg/dL [facility] Comment on above: Therapeutic target f or gout patients: <6.0 mg/dL Urea nitrogen [Mass/Vol] 17 mg/dL 7 - 25 mg/dL [facility] Urea nitrogen/Creatinine [Mass ratio] SEE NOTE: [facility] Comment on above: Not Reported: BUN an d Creatinine are within reference range. Laboratory - Hematology and Cell countson 02-21-2024 HbA1c (Bld) [Mass fraction] 6.3 % High [facility] Comment on above: For someone without known diabetes, a hemoglobin A1c value between 5.7% and 6.4% is consistent with prediabetes and should be confirmed with a follow-up test. For someone with known diabetes, a value <7% indicates that their diabetes is well controlled. A1c targets should be individualized based on duration of diabetes, age, comorbid conditions, and other considerations. This assay result is consistent with an increased risk of diabetes. Currently, no consensus exists regarding use of hemoglobin A1c for diagnosis of diabetes for children. Lipid 1996 panelon 5 Cholesterol [Mass/Vol] 121 mg/dL NINF - 200 mg/dL [facility] Cholesterol in HDL [Mass/Vol] 40 mg/dL > OR = 40 [facility] Cholesterol in LDL [Mass/Vol] 53 mg/dL mg/dL (calc) [facility] Comment on above: Reference range: <10 0 Desirable range <100 mg/dL for primary prevention; <70 mg/dL for patients with CHD or diabetic patients with > or = 2 CHD risk factors. LDL-C is now calculated using the -Vitale calculation, which is a validated novel method providing better accuracy than the Friedewald equation in the estimation of LDL-C. SS et al. TANA. 2013;310(19): 6148-0166 (http://education.[employer]oe[employer]/faq/TOT737) Cholesterol non HDL [Mass/Vol] 81 mg/dL [facility] Comment on above: For patients with di abetes plus 1 major ASCVD risk factor, treating to a non-HDL-C goal of <100 mg/dL (LDL-C of <70 mg/dL) is considered a therapeutic option. Cholesterol.total/Ch olesterol in HDL [Mass ratio] 3 {ratio} [facility] Interpretation and review of laboratory results Abnormal [facility] Triglyceride [Mass/Vol] 224 mg/dL High [facility] - 150 mg/dL [facility] Comment on above: If a non-fasting specimen was collected, consider repeat triglyceride testing on a fasting specimen if clinically indicated. Chantell et al. J. of Clin. Lipidol. 2015;9:129-169. Performing Organization Information Site ID: QPT Name: [facility] Address: [address] [place] [address], [address] [place], [place] [id number] Director: Curtis Lyons MD [facility] Microalbumin/Creatinine rati o panel (U)on 02-21-2024 Albumin DL <= 20 mg/L (U) [Mass/Vol] 0.7 mg/dL See Note: [facility] Comment on above: Reference Range: Reference Range Not established Albumin/Creatinine (U) [Mass ratio] 5 [facility] Comment on above: The ADA defines abnormalities in albumin excretion as follows: Albuminuria Category Result (mg/g creatinine) Normal to Mildly increased <30 Moderately increased 30-299 Severely increased > OR = 300 The ADA recommends that at least two of three specimens collected within a 3-6 month period be abnormal before considering a patient to be within a diagnostic category. Creatinine (U) [Mass/Vol] 154 mg/dL 20 - 320 mg/dL [facility] Organization Information Site ID: QPT Name: [facility] Address: [address] [place] [address], [address] [place], [place] [id number] Director: Curtis Lyons MD [facility] No Panel Informationon 01-08 -2025 Interpretation and review of laboratory results Abnormal [facility] PATIENT UNABLE TO VOID; ADVISED TO RETURN FOR COLLECTION. Remind Organization Information Site ID: QPT Name: [facility] Address: Jael Gil , [address] [place] [id number] Director: Curtis Lyons MD [facility] Cardiac echo study Procedure Ordered By: Arianna Mascorro on 02-05-2024 Ao Root Index 0.86 cm/m2 [facility] [employer] Work Phone: Aortic Root 2.2 cm [facility] Phone: Aortic Sinus Valsalva 3.3 cm [facility] Phone: Aortic Sinus Valsalva Index 1.29 cm/m2 [facility] Phone: Ascending Aorta 3.5 cm [facility] [employer] Work Phone: Ascending Aorta Index 1.37 cm/m2 [facility] [employer] Work Phone: AV Cusp Mmode 1.8 cm [facility] Phone: AV Mean Gradient 3 mmHg [facility] [employer] Phone: AV Mean Velocity 0.8 m/s [facility] [employer] Phone: AV Peak Gradient 6 mmHg [facility] [employer] Work Phone: AV Peak Velocity 1.2 m/s [facility] [employer] Work Phone: AV Velocity Ratio 0.75 [facility] [employer] Phone: AV VTI 18.4 cm [facility] [employer] Phone: Body surface area Derived from formula 2.67 m2 [facility] [employer] Phone: E/E' Lateral 4.69 [facility] [employer] Phone: EF BP 55 % 55 - 100 % [facility] [employer] Work Phone: Est. RA Pressure 3 mmHg [facility] Work Phone: Fractional Shortening 2D 28 % 28 - 44 % [employer] Phone: Interpretation and review of laboratory results Abnormal [employer] Phone: IVSd 1.3 cm Abnormal 0.6 - 1.0 cm [employer] Phone: LA Area 2C 26.6 cm2 [employer] Work Phone: LA Area 4C 25.0 cm2 [employer] Phone: LA Major [place] 7.3 cm [employer] Phone: LA Minor [place] 6.9 cm [employer] Phone: LA Volume BP 78 mL Abnormal 18 - 58 mL [employer] Phone: LA Volume Index BP 30 ml/m2 16 - 34 ml/m2 [employer] Phone: LA Volume Index MOD A2C 33 ml/m2 16 - 34 ml/m2 [employer] Phone: LA Volume Index MOD A4C 27 ml/m2 16 - 34 ml/m2 [employer] Phone: LA Volume MOD A2C 84 mL Abnormal 18 - 58 mL [employer] Work Phone: LA Volume MOD A4C 69 mL Abnormal 18 - 58 mL [employer] Phone: LV E' Lateral Velocity 11.30 cm/s [employer] Phone: LV EDV A2C 74 mL [employer] Phone: LV EDV A4C 102 mL [employer] Phone: LV EDV Index A2C 29 mL/m2 [employer] Work Phone: LV EDV Index A4C 40 mL/m2 [employer] Work Phone: LV Ejection Fraction A2C 57 % [facility] [employer] Work Phone: LV Ejection Fraction A4C 52 % [facility] [employer] Work Phone: LV ESV A2C 32 mL [facility] Phone: LV ESV A4C 49 mL [facility] [employer] Work Phone: LV ESV Index A2C 13 mL/m2 [facility] [employer] Work Phone: LV ESV Index A4C 19 mL/m2 [facility] [employer] Phone: LV Mass 2D 279.8 g Abnormal 88 - 224 g [employer] Phone: LV Mass 2D Index 109.3 g/m2 49 - 115 g/m2 [facility] [employer] Phone: LV RWT Ratio 0.44 [employer] Phone: LVIDd 5.4 cm 4.2 - 5.9 cm [employer] Phone: LVIDd Index 2.11 cm/m2 [employer] Phone: LVIDs 3.9 cm [employer] Phone: LVIDs Index 1.52 cm/m2 [employer] Phone: LVOT Mean Gradient 2 mmHg [facility] [employer] Work Phone: LVOT Peak Gradient 3 mmHg [facility] [employer] Phone: LVOT Peak Velocity 0.9 m/s [facility] [employer] Phone: LVOT VTI 14.4 cm [facility] [employer] Phone: LVOT:AV VTI Index 0.78 [facility] [employer] Phone: LVPWd 1.2 cm Abnormal 0.6 - 1.0 cm [employer] Phone: MV E Velocity 0.53 m/s [facility] [employer] Work Phone: MV E Wave Deceleration Time 156.0 ms [facility] [employer] Work Phone: PV Max Velocity 1.0 m/s [facility] [employer] Work Phone: PV Peak Gradient 4 mmHg [facility] [employer] Work Phone: RVSP 22 mmHg [facility] [employer] Work Phone: Sinotubular Junction 2.3 cm [employer] Work Phone: TR Max Velocity 2.17 m/s [facility] [employer] Work Phone: TR Peak Gradient 19 mmHg [facility] [employer] Work Phone: [facility] [employer] Work Phone: Cardiac echo study Procedure on 02-05-2024 Left Ventricle: Low normal left ventricular systolic function with a visually estimated EF of 50 - 55%. EF by 2D Simpsons Biplane is 55%. Mildly increased wall thickness. Normal wall motion. Diastolic function indeterminate in the setting of atrial fibrillation. Mitral Valve: Mild regurgitation. Tricuspid Valve: Mild regurgitation. The estimated RVSP is 22 mmHg. Aorta: Normal sized aortic root. Ao root diameter is 2.2 cm. Ao sinus diameter is 3.3 cm. Mildly dilated ascending aorta. Ao ascending diameter is 3.5 cm. Image quality is adequate. Compared to the previous study on 09/23/20, no significant change was seen. Left Ventricle Low normal left ventricular systolic function with a visually estimated EF of 50 - 55%. EF by 2D Simpsons Biplane is 55%. Mildly increased wall thickness. Normal wall motion. Diastolic function indeterminate in the setting of atrial fibrillation. Right Ventricle Right ventricle size is normal. Normal systolic function. Left Atrium Left atrium size is normal. Right Atrium Right atrium size is normal. IVC/SVC IVC was not well visualized. IVC diameter is less than or equal to 21 mm and decreases greater than 50% during inspiration; therefore the estimated right atrial pressure is normal (~3 mmHg). IVC size is normal. Mitral Valve Valve structure is normal. Mild regurgitation. No stenosis noted. Tricuspid Valve Valve structure is normal. Mild regurgitation. The estimated RVSP is 22 mmHg. No stenosis noted. Aortic Valve Valve structure is normal. No regurgitation. No stenosis. Pulmonic Valve The pulmonic valve visualization is suboptimal but appears to be functioning normally. Physiologically normal regurgitation. No stenosis noted. Ascending Aorta Normal sized aortic root. Ao root diameter is 2.2 cm. Ao sinus diameter is 3.3 cm. Mildly dilated ascending aorta. Ao ascending diameter is 3.5 cm. Pericardium No pericardial effusion. Study Details Image quality: adequate. No contrast was given. [facility] Radiology Study observation (narrative) [facility] Coding Summaryon 10-25-2021 Coding Summary HTMLBase 64 TvkrnzttWXu7hKs+PGhl YWQ+JZ7CDOGoE08wkILl eI2UG1pVBO1UNLHTIZHV AE2HVH1afGW2SSxfL4Jb biAv MaqzcJPjUM75JVo2AWY3 cWlvWOiqhX1jyYQsB7e2 TgTyXD94tU78EGcqEDOr VhO8BbKenkvovEHe Z6wnRyHycCHhXsh+PHRh YmxlIHdpZHRoPScxMDAl YaRpoDagEP8jSx5rCBWs LWNvbGxhcHNlOiBj x7tdVEIzGCdvOM1hpPnf E4YhuNS2AZYxq9t6Hr74 dHI+NZFlOFZ9pYcsFFvy c598EvEom0lyYNI4 eWPpNYzgQEA3L02er2K4 OUAcGLIeMDQ3uXO5bE2x rEzvskbxS9UpnCKvAjJ3 EQP6rFCxuV2hkHln nbnlzE0dBau+R79LWF4W GNUYGK3OAck7X1ThMypk dHI+ZG06BTXuOE78xMMq gDYzg3npjUp0HiRg GVYzVAC8oKwsTDzgr4Co KOGhB84uwNWei2H4BLFt lIqsiRUfWmSuiVZ9wI5n AQmrqolie4sradlm Tpvvz9qwii16fU23R35w MKkpJSUiRVT9CTEfSZCr gHmwpo9syZ1zVm5+IDxj c2jwz6zxpNv7QpFz GBMpqiGpuHfaJKU8s8Yj Nv12R0KynKpza7KwJqd7 ve66dFDsy6Y4wWJ8ESmm CBZkcC3sGApoZeS2 QKUqAkFnsX93gTCtEBqz Gj7uxFzqjWayLQ3hGZBn rydwPXFrmD9kMIZmeZIn bYzaPW5aUICpheiv q043WxBdIMP5NGSzlRNj P8YtqZ5mPbSbXOZfASZg G8AppPPxZMxpU129UQrp SsB6OZAmjmXbA5Yj UDSmaMtbLuF1m1A0Cg7L y0HuxngzPIM7VIfbBUK5 RzGdJiAgFnW4A5JzEpm3 FNYlfYorJR8oW8Er TBTvfenhfypphIV4BJXe ZQRxyK50eGVkFBhfQj4o d6W3p961RVGgEQMmvF67 Sa0stSfrJLJziYZZ cZ7kyiykw3wmxitxRcPy BCFhJWp2WSl6AAFbfHmv QsExIGP5JdS6IUB5hQZw wO0fkSjyhiiwxA1o Oyc+A31esJ5gDXO2VIH0 jordKGVontOlGG44ZA37 U2NoTrfgtTDqqXX+PGRp qpTlhYxiAU2jIvEo i0kxx5YnFLjfD4MhUXAr YAtcWrf4TOLzQAO5lVZ5 eG2tDNAnGQjfw4O0kHO2 E5MnafMunn4ff9wl FSIpULyjV09bgEEhg7P6 MSSpzKZ0GKHamRflScDv mX32Ztj+AXBmwUtrt8Wk Hvkfv0zub5ydaSh1 IjMwJSIgdmFsaWduPSJ0 q7KbXz67Q87tVVtpLNUs GSRgZGDgFLFzpWhgvr6q oP1kVu5+PGNvbCB3 tWI0gS4yACTvRtB8WYxm N011GoUniZYhFclhv3gb m8rvwWc2NaRhZKYbxaCy zVgqUTY5o1JcPb07 E17cTQtpCDVeLBRuARRw CUJesLxrpt8psR4wHt2+ OQ0ni2fzpe10gX33rZM+ XHAuFMU2zAunPGkk YAOowJ7zYVulLpD4QSPl GlVlqP55hFVaQXtvTq9g nNdzdMkzYD0gPYMgbmgs j077NeTaf8qhKLCt hMDkSIlrOYP9N53wp5S4 QLFvPUZzXYP4uHD6pV1y bGlnbjogbGVmdDsgdmVy mZjmASngQVvbF471 IHRvcDsnPlBhdGllbnQg SlNyICf4E0McYkh7INCm lEhkMK1bqQOlLYcfFk0s hKelfRxdLH8qMMUo bbfhg627YqIsd4orKKCs tQGqEKutKNF6N55yd3W4 UJUbFNLrLFW4ePN4zT6x bGlnbjogbGVmdDsg mzFadUzrQDouKMjfG361 IHRvcDsnPkJpcnRoIERh vYU8BV82KJ93xPGxu7E8 jKZ1M1WrEJForryu bzqgnFO5VQCjTTHcbI94 Ma8rxRbbVd9iADWdJRM7 NDBloBVhP9RloT1gJmHs IDMlOOPpH9UvbWVp ODuzF375IDvhDuA8HWJc wjRjF1EqQBFdfVefNyU9 w5D0Hy6QM8X8OX32RG81 bSHbq6B4wMI9Z3Fe GGUzazafoaasmRZ0VIGd RRGgiX10Dt4akFmoQh0c CZLsVYZ4EQUlhXUlI3Pd mA2xXxQiGBUjXIRf G4RemRDfRFyhC363EYyf OjF2PLXcgkCvD2KeUJOg aPunMiD9o5J1As2LBKn4 VD70ZQ84gCKnd9P3 cJZ0G1HyLJMoittxlsvy bDW7PFGyDXLkqM04Ty4s cUhwBs1kUKMuLOG8LEUh dADvF2JluA8pBvSi ALXcDRXpW3EyvXJyGRtw U275JLiaKdD3EQAneoUb B9LxPTBdnOysJiK7c5T4 Pq1ZTBYnYR32MDU3 vRD9GV63GO09J1TlPfge dGFibGU+PHRhYmxlIHdp ZHRoPScxMDAlJyBzdHls ZW2bLh6bAESyQMKb ySzyvPZnHiZmq6rdQICi WKboFP8lbEbtW6HqrXL8 VMDqs5d2Bu04P04mN5Hl dXA+NRItuRV7eLS0 kP4nGhAxEgG6WXwaX416 JeTnuLDhDyrxy7kuw3av pUn2XuT1TEZjsbWctRzo VFM2e1RqWj59X31a IHdpZHRoPSIxNSUiIHZh wQffiw3rjA6eOa7+PGNv tBC4fRA5sU4qXhTeWsY5 PDbvF550JjIrsIBl Zkkdm4wgb3wgkXb2LpKi QFGwypSnrBmbDBG0g7Rl Lp87X7BlnPmgw8QxOxg5 fk08lUBab2F0hZQ0 X3KpCODnccldrGQwwDjq MS2eMYQhxkatVMCvxJ0j LAWuY6g4IpQpMaX6YOsz N8MeeqM8RMZdbBDy NTbyQPK3L29ql2T7VDKo KBKaLPS2yYE7qF7hxUwe bjogbGVmdDsgdmVydGlj TEtyGRgxN890VJPm gJdwCCMjzQ6lTDGplSFa jXjaWF9uRROscyxyNbeA QkVSTElORywgTEFXUkVO G0TaCFxswBU+PHRk ALB8hFwyCXbdNKYzxV4v XLOcV0p3BiCuYfV2FPop G1IzXGRwqijeOt50sL6a IsSjLzA4ZXsrP3Gf heP9LQYqvQZeEPjsXNT2 X31mg4O8XSJpSZYlDQP3 sCQ3aG0xqAjeirtopQGn dDsgdmVydGljYWwt MWscT093RCFzeUayGyT6 AhAqXaW3HJd1F0LfTwy9 ZZSybKqwDT7kvFEkJByu Cb1klEqntJotXN4x FUXrpemlPWQqvY6oEEDd mGBlpSwcWL4uQJMmrmot e031AwCrTYE2PMValUKd S8IjjS3yLhDuCBYw WHYuC1XctUBrHCmjB698 NHqeZcD4MDYdfyCzR4Eq ZEQxlAraLvO4w0I9Wi17 MyBZZWFyczwvdGQ+ ESFnGNA3tPwoNZhsCWZn sY4iMQIvU0a2OdPwAhT1 WDnjD2AlDJNwvkaoPj68 xL3dAuUbVbA5IOex O6VevjE8CYVglHNjJBdj BAE4U56ox3J5LJTzCGWp JAX5vHN5nT1ojThcdxzs bGVmdDsgdmVydGlj WBxvCRwnB952RQJzmQen Qw1BPKW7C9KxIlo6ZZAq sRvlHM9guMAlZIciYy8e pCggxLowDH5rNRQh pliaQJNkpR1zKZAbtRRl lUamOY4qYBUglnnyb359 IiKlHQN9OROrvHCvY5Oz yW5eQvBrKOHlWGEp E0NgsCKfWSsgG322GVvj EeZ9ZKHmyqLoH2OuZNTp mMdpNdD9m7J8Hp0RHRrt dGQ+YB06yu08Q4Ed KijkCxo8EHZtEMJ9nZT9 uU1iZZYcBMkbf6W1vTN4 V1SushWkfd9lt4kzVHHt CMxhW27vbKUeu0U1 TUSujKU4ZSVoeSvzNzBa uW76Cse+IUNcvLdsd0Cq Abniz5zch9ezhXo1OmHb JSIgdmFsaWduPSJ0 q9DmAj46D26iGElpLEDn VREaOWRxLFLrqIzcce9j hD9sNy7+NONouAB8pKS9 zD6zFjQuNlA3FDrb V710JbFbeEJyUzroz4qt z1kwzJh1BrAhHORojyCf lLhqZKS2u5PnTg04H3Ay lWpwc0XcMxh9ac46 pKZkq6N0lRU1X9XlFSFb rfervFDgpFhrEC9fAAKp jxyzBVFxoB6dXVPxQ3a2 MlLsFkS4QEdjO8Yj jsP5XDSfhMSxUSSlzNWO iG1djsayo6acnitoTtCe SNFuLQr7MYs0OKStwInu XpEoXZG2ViN7WWJ8 xTXvrU9dqArhoakrnR7o Oyc+PPx3s6eljLJcVZ1q pGS6GO39RQ20wBMjl5L5 jJA5R5IyIHTqpxdb qdbmdNU5ULHlRUMhnZ47 Hz7xtGczQs6rEKBbWYN6 MMBcuJScB9EykK3tVlOh EUBaTDRcE6DdnIIc WUgyG995QDvxZxS5JBOl acCfI0MeLIRlqVtnInP0 n0M7Xo4FVF51PG51OO93 dRChf8D4zXA0Z3Qr KILgyrawpkuwhVS3IVIf ZQLjfY94Fk4kpWixOj9y BESrVJD7HAYrxYWhX7Qh jV7yQcTjZBOcPBUc I4CpeBEaBAktM943NXkb JpB7JTOlmsRlW3BeSNQv aHtfTkG1a8D6Wo0QDz88 JL92PB30dXTxq0W2 xGX1A7LfOFPqoacwitgn pQU2DASiGDFleB63Hy9o hMykUy2oPWYdIIP9PFKw hNQrI3SaxT2dYmZp KZCgZJObW5OglDZjQIha N457FPghFkZ9MVIbnvWy O2WiFZRtsTsoCuW5w8C6 Wv3TLNcnzen4I5Dr PjwvdHI+GR38ZSGsSX51 wEYqgOXln0ezrCe2BiCb HSFiRCM1qXroUTkua9Js FZVvY63vxLKag9T4 IGN (more content not included)... [facility] Coding Summaryon 10-04-2021 Coding Summary [employer]Base 64 BzoodahzCNb0lBw+PGhl YWQ+CD0DLUQwL62aiQLf pA1ZF2vEGN6WRWSQVECT SO6LZT6vrYK5WUhdU2Cn biAv LpsavYHoSO68RTd6HJP1 bWejWEvamW6uzQXhE5k1 QeRhVQ96fQ65QAatOLDi MyR5HwYdkasvvVRt I8xwQuMwlOJeLpp+PHRh YmxlIHdpZHRoPScxMDAl SiMcdZddUB2sNu2iYHKa LWNvbGxhcHNlOiBj w0fzWGRwQPlkEP1uqFsr S9OmpLQ2AEGtm1l0Hl41 dHI+VSWkVED0dWwtPEmd m837TnYua9lrVOG0 bAKdFRueFSY6R66ah9Q7 GWCeSFRqYGH1yTZ0gF1r kKryqkhcP9RmfOWwDcM2 LIS4uGTizP8oeCnw opqimE7hWmu+B42QDY1G SHGNUF2GWcm0I3DpKdke dHI+NE68ADMcCI48jLAn cYCle8daaMy0SiRj ZBRiFJB0bCukKKnac3Hx EBUcM14jaJVuo9Q4IOAx fZvlqWOwWqLxmOB9oP5b GNkpvqgau6nqrxrd Vofdj3bapk04qW75S29c AShlKGJjKMO4WMIfYSNs qYdmfu3nmQ5iDa0+IDxj k8jmg3elrAl2RiKu NFLmwuDgqFxuRUK8v8Fm Bm17Q1MhtZxev0JsSte4 ay66mLArj5C9kZA7NJud YPCceE3oJWkoDkA9 AAFpIoBrhE35lVZiKUnu Ag4pyFtwzYjkBG7bLGBt jbcnCHDlvI7jZZQufVIt aEogOL3cWJUyksnw y175CjVyRTO5MNGwoOKw P6OxqP3vHsTfYSRoBXHi C7IlaQCbGXgfR171CUxv LtO4AYUzmcIaY6Wk STMgiEgyQzV4e9Y6Mk3N m8FluyysYKS2AXlaKPT4 WyAzNlUbUbN3V6JuAdd6 TJIcrPgoVZ9sE8Hc IQLyaphwbbcbvSD7CPXq OUYtqB51uNHhZPczWf4a s6T6j129KSWkVFIbjT57 Fa0gaYijIRMztCRV gB4msnxnn4pcwirkPqRv ECScFWq7SQe4ZWZdaSjb MzDrJKD3HzM1MWR9bXIi sY3tgAzsowxmvV2k Oyc+A27zkB9eIKV8FZZ6 ebloNRAzbzJhTH59EF44 I7PhIaeaoHWewKG+PGRp irLloEpaSK6xRgXj c7tvi4IdXLfdH1WrTHRg VUraJym1ONJoSGM6mUH7 jD9aATTnNXwdm7Q8qYU3 K4ZzvlTrtt9vg2oi DDQmCBbnK38unFSdm4Q0 KIHlaUI8YUElrAuxGnGp cK15Hee+MXGgnAikf5Gc Qgqka3dyz6aqoXd0 IjMwJSIgdmFsaWduPSJ0 v3IwOr27E50gVQccQLVf UDShDGRkVLVbvMcubk5x zS3pBh1+PGNvbCB3 lWO1kK9iKKHzHyJ1HAhj O177PtNbzWGsGbtdn4hu u1nfpOb4GyZaTWPejpBr sNjlZUF1w1ExPy96 C93qKSicKKGbSGBfESLu IKIyzEnbks3caR7uDj9+ DO8qh4xypx04lM44qGI+ BERjJZO2iYqjHTnb GGIkxV1aRQwkJkV3XZNg BaMdyB92cBFiBEggKu0f oMfqzNdwXI2uDINbwvbq k224PwXyb6feKDQc bPQeYOjbAHJ6Z29gk2Y8 HIMcCPUgGNT8qWJ1eT0n bGlnbjogbGVmdDsgdmVy zYviFXvyGMkjV101 IHRvcDsnPlBhdGllbnQg RzMxOFv3H1IjXeu1DDZy xHykMA5geVZbKDjqTm9n bCtezAgsKW5wOJRx fnhmy318LbVzo8vdENBo gBAdMXruGCM7X53ch1O2 HUXiFEMlZUH8tHT5iC9u bGlnbjogbGVmdDsg wtTptNxlOFwhHWncE915 IHRvcDsnPkJpcnRoIERh mNM3YC38CX24eCJsq4N7 pEK7M5NyOMNqzkzq gypjoRE7FSWbOGXopL28 Mp4jtPlrIm8mKZCuJZV8 ZDMlyWSpG3GkzO3wMmTu MZUySYYdM2BymQSv QYdbS347YCalWnY2NTKs nyLvF2HfMECgcSzdNxW6 j9Q3Er6TG9Q1TO44VO45 kPCmf2B8hLJ4Q2Rf PZHwutxilikaaSK9EEJo XUChcM60Oo7ciYmjVe8i NXXuKVB4FQTejVTpK8Yj aT1zGnLbLXOwWXTm H3CjhUTjRSxnE376DObb HnA2LQHnoxRpA8RfECDv eQueJvU6f2S0Lq7RWTr6 FU67VA37iQGzq4E2 rUF6Q6NlZGSitapvrnpj oMG8UYQjXXSpdM12Kk6c cDkxZk6yYSAkCPW9XHWb nSJpI8PzgT3cGoYq QGOoVZSrM4YqsKPkVZpx D016GOtmBeT1ZWAmpoSw I0VdVLYlaJftTeT6r7F5 St4LLEEeXX68GZP1 uGG1CT10AT54P1BoDqzp dGFibGU+PHRhYmxlIHdp ZHRoPScxMDAlJyBzdHls OB5xQh2sNHQxCNHw yPivaHWyQxBxd2suRCJj FIqzSC4ncLekL1RorAW7 SXPhz3q9Cm12C70fS4Fe dXA+PDHmyPF5aXW1 zM9mPtCpMiI3RLrhV779 LdHqfKNvNifbt7eoa6gf gUb2RsT5MCLuwrYgxSgz LXM8o8DqJt52X79p IHdpZHRoPSIxNSUiIHZh aUiqec3ecO6nLt0+PGNv gGR9kZX7jW0gYfMiCuI1 RWltW070GaVuaEFv Pxbfz9mok8zxuEi7KuEu NTJuagZoxUlhVIZ6n6Ga Ck79T2TmkGgnd2OhZdk0 wl53bOKjr7Q9aMT7 O6FuSRKmzpnflUHrzSgv XQ1sWONoiranONHseH7o YTTzG3s8GjPfZtC1QOto Y7BwxeK8BDQsoRGy MDteOQI4A21zq4W6GRCe PJIaYFE9hAQ8rC5dzOri bjogbGVmdDsgdmVydGlj GNofAYyaX916SHBz sZhkOPRoeH7zFQGoaPPx bBmiSQ0zEGMvsithBcpX QkVSTElORywgTEFXUkVO W8YbOWbokPT+PHRk JAG6nChdBPvePPWdnQ5p DWRnT0w3VcLaDlA5OVoo B7LyTERkqpymSt95wL9c TuQfEsZ3WSdeR7Bn brQ0YFNuhBLtHEooZIV1 U55py6B2AVHvYFUcKRE4 lVY6kA5dsFfcmlrzeJAc dDsgdmVydGljYWwt FVvgF210QKAojRooHzI7 AmEbQhO3YKa5B6WyIwq0 JYJmyFuzYG9zsVGzEHfd Zi3fcNgrsVbxWU1k HRQjkltlTTGlhH8hXXNa iXLrfLmkGT7gKPJzmxra j964LiDqROG6JRPlyOUd W4XrfA8kSmIeLUZl IGAdZ1FvkHQwEOjeE976 YDfxEnA9SQVdzyMaA1Xx KMPusYzvRfW9d8K3Cq13 MyBZZWFyczwvdGQ+ PLOlEYL6nTnwNCzvNTMy rH9ySANqV5a2VwPeOlR4 DYpcP2LwKZAtruknEe41 uF0fVmQvQkG1MHdy M5KdmlD4IKNkfKUpILkt JBW5J82tj5G5UQFwSRJt JIY8wSP1lU5tjFrfzrtz bGVmdDsgdmVydGlj NWjzNPlaL825HHVztEbk Iq4MCLG0U3EyVle4JYJi oNygYN2bgXRjGLrsNf8o nImalNjoIC0mBEDi vrodPOYolH4kHDWfiZAx wFfjHJ6rWZSchobyg256 HzYpQOS8XRQlxJRwN2Vx gI0sFqUgGGDgIMCh Z1UfqTVnTTkdM515SQqb KtS4DFGcezVgT1BxOQUa vRpxMuQ8c3B2Vt6HGpBt cnZhdGlvbjwvdGQ+ AE76fx20R8BhVpcfNgm2 JANzMWR1bMG0uZ0eMYDm SLmao1Q5fKO9X6WqpkUj ep7xs4ddCYLoQJjt O83onSKfs0E8WIYpgXS3 QTLaoSwoTrVnmD90Fjw+ BVKcjZgak8FsNzadu5ty n2sctPd4YwGwFDVn odEzkJipBBN9k8ZcSi05 S80bCWugCSGmSUMmNVUa EVEeeUsito3fvU4jJz4+ UPOefSI1oCS9vQ4j RjPsGqQ5MZevI303BmCt eANsAsobx6zxj8suxQu3 IjIwJSIgdmFsaWduPSJ0 j0MaMx40X1FmsUey c5SdBvr6pe95yGTwa1X0 pER0K3DaDBKqnklrmTQl tYozBI8tUNVqdlkcLGQk sZ3zEODnV2m1RhLy EpC7SNjeP4NptbP3NKMg mYLoILTpfSAHqH3zgydy w9mixjcmNiIpUIUaAPv4 DBh0ZRXmwUkkJfQa OBS3EnT2LTF1bNKgdL9h oFkcvhwhlZ7rLcj+UGh5 p3dakPDuFR6pmNO2OV11 JS54iAFmy5D6wDQ4 Y9DvKGWbtymlsoabyCF3 VHEhCYBdzP68Xy6bbEju Qp4tZNIjVAV9GGYceEHu H4ThzR6yBtMnJCUx JJQpG1NjfQUfSOxfM713 ZHprOzV6TDUipnUqE2Lk QWNvpWnfFuG7n8Q2Gb9B FK46CO97KZ53oRXv t4M2tTK7P3XkISNdnmvs aadkfBP2DJRpUSAsoS80 Fi1tzVpiDv6qJVFeCOS1 UCXdgPJmC9WxdM6q GeRnKUYwONYvU3SawTRz FGraS825AFdcVqI7TTDf riWqX5RtHSLmmFdhYgB1 d3R2Js4APm59ZA15 CL73yZZqn5P7kFL4D3Cn KMXpuyheknvltFO7EKQh VQGjgQ93Tl1jnFchBj8l CZIcLDZ4HHGdnYSv I5KeoR1eXmBxWNTsKVKq P2FeeVEpVMsxV122HTlg XcP0SFLtoxEuJ6VyEDXc uEqeUcV9w3W5By3O DIkufdn0F0DwQbzxuHX+ LS42RGSnNV06vKPawUXv l9ozvBr1BcAvOMVsIFI9 kVaaTTgsc0OkZAEp Y29 (more content not included)... [facility] Consent Formson 09-23-2021 Consent Forms [id number] #1.00OTGTIFF [facility] Consent Formson 09-20-2021 Consent Forms [id number] #1.00OTGTIFF [facility] MAGR Postoperative Recordon 09-20-2021 MAGR Postoperative Record MAGR Phase II Record Summary Primary Physician: DAVID AWAD DO Finalized Date/Time: 09/20/21 10:05:40 Pt. Name: ZAINA WINTERSO.B./Sex: 1950 MALE Med Rec #: [id number] Physician: DAVID AWAD DO Financial #: [id number] Pt. Type: O Room[facility]Bed: [facility] Admit/Disch: 09/17/21 08:03:00 - 09/18/21 12:10:00 Institution: [...] Vianca Celaya RN Document Signatures Signed By: iVanca Celaya RN 09/20/21 10:05 [facility] Outside Recordson 09-20-2021 Outside Records [id number] [facility]-2021 Provider Orders [id number] [facility] [id number] [facility] Tele[facility] Stripson Telemetry Strips [id number] [facility] Electronic Messaging[facility] 09-19 Electronic Messaging --- --- --- --- --- --- --- --- --- From: Ej ([email or web address]), Ej To: ZAINA WINTERS Sent: 09/19/21 04:18:10 AM EDT Subject: Discharge Summary Ready to View A summary regarding your recent visit is available in the Documents section of your Health Record. Normal [facility] .Auto Diff on 09-18-2021 Auto [place] % 9 % Normal 1-12 [facility] Comment on above: Performed By: #### 1 [id number], [id number], [id number] #### [facility] (DEFAULT) [address] [place] [address] 76518 Baso Abs# 0.0 x10 Normal 0.0-0.2 [facility] Comment on above: Performed By: #### 1 [id number], [id number], [id number] #### [facility] (DEFAULT) [address] [place] [address] 58807 Basophils/100 WBC (Bld) 0.0 % Low 0.2-2.0 [facility] Comment on above: Performed By: #### 1 [id number], [id number], [id number] #### [facility] (DEFAULT) [address] [place] [address] 86597 Eos Abs# 0.0 x10 Normal 0.0-0.4 [facility] Comment on above: Performed By: #### 1 [id number], [id number], [id number] #### [facility] (DEFAULT) [address] [place] [address] 93248 Eosinophils/100 WBC (Bld) 0.0 % Low 0.9-4.0 [facility] Comment on above: Performed By: #### 1 [id number], [id number], [id number] #### [facility] (DEFAULT) [address] [place] [address] 79695 Lymph Abs# 1.2 x10 Low 1.3-2.9 [facility] Comment on above: Performed By: #### 1 [id number], [id number], [id number] #### [facility] (DEFAULT) [address] [place] [address] 20122 Lymphocytes/100 WBC (Bld) 9 % Low 14-48 [facility] Comment on above: Performed By: #### 1 [id number], [id number], [id number] #### [facility] (DEFAULT) [address] [place] [address] [place] Abs# 1.3 x10 High 0.0-0.8 [facility] Comment on above: Performed By: #### 1 [id number], [id number], [id number] #### [facility] (DEFAULT) [address] [place] [address] Neut Abs# 11.6 x10 High 1.5-9.2 [facility] Comment on above: Performed By: #### 1 [id number], [id number], [id number] #### [facility] (DEFAULT) [address] [place] [address] Neutrophils/100 WBC (Bld) 82 % Normal 44-88 [facility] Comment on above: Performed By: #### 1 [id number], [id number], [id number] #### [facility] (DEFAULT) [address] [place] [address] CBC w/ Auto Diffon 2 Erythrocyte distribution width (RBC) [Ratio] 14.0 % Normal 11.5-15.0 [facility] Comment on above: Performed By: #### 1 [id number], [id number], [id number] #### [facility] (DEFAULT) [address] [place] [address] Hematocrit (Bld) [Volume fraction] 36.8 % Normal 34.8-51.9 [facility] Comment on above: Performed By: #### 1 [id number], [id number], [id number] #### [facility] (DEFAULT) [address] [place] [address] Hemoglobin (Bld) [Mass/Vol] 11.9 g/dL Normal 11.8-17.7 [facility] Comment on above: Performed By: #### 1 [id number], [id number], [id number] #### [facility] (DEFAULT) [address] [place] [address] Instr WBC 14.2 x10 Invalid Interpretation Code [facility] Comment on above: Performed By: #### 1 [id number], [id number], [id number] #### [facility] (DEFAULT) [address] [place] [address] 15916 Man Diff? Auto Normal [facility] Comment on above: Performed By: #### 1 [id number], [id number], [id number] #### [facility] (DEFAULT) [address] [place] [address] 54907 MCH (RBC) [Entitic mass] 30 pg Normal 24-34 [facility] Comment on above: Performed By: #### 1 [id number], [id number], [id number] #### [facility] (DEFAULT) [address] [place] [address] 33613 MCHC (RBC) [Mass/Vol] 32 g/dL Normal 26-37 [facility] Comment on above: Performed By: #### 1 [id number], [id number], [id number] #### [facility] (DEFAULT) [address] [place] [address] 41126 MCV (RBC) [Entitic vol] 94 fL Normal 81-100 [facility] Comment on above: Performed By: #### 1 [id number], [id number], [id number] #### [facility] (DEFAULT) [address] [place] [address] 11271 Platelet 181 x10 Normal 138-427 [facility] Comment on above: Performed By: #### 1 [id number], [id number], [id number] #### [facility] (DEFAULT) [address] [place] [address] 47771 Platelet mean volume (Bld) [Entitic vol] 10.4 fL High 6.3-10.2 [facility] Comment on above: Performed By: #### 1 [id number], [id number], [id number] #### [facility] (DEFAULT) [address] [place] [address] 86347 RBC 3.92 x10 Normal 3.70-5.30 [facility] Comment on above: Performed By: #### 1 [id number], [id number], [id number] #### [facility] (DEFAULT) [address] [place] [address] 24515 WBC 14.2 x10 High 3.5-10.5 [facility] Comment on above: Performed By: #### 1 [id number], [id number], 3465403 #### [facility] (DEFAULT) [address] [place] [address] 99483 Electrolyte Panel Standardon 09-18-2021 Anion gap [Moles/Vol] 12.0 mmol/L Normal 5.0-19.0 [facility] Comment on above: Performed By: #### 1 [id number], [id number], [id number] #### [facility] (DEFAULT) [address] [place] [address] 95630 Chloride [Moles/Vol] 98 mmol/L Low 101-111 [facility] Comment on above: Performed By: #### 1 0049930, [id number], 5110470 #### [facility] (DEFAULT) [address] [place] [address] 45805 CO2 [Moles/Vol] 28 mmol/L Normal 21-32 [facility] Comment on above: Performed By: #### 1 [id number], [id number], 3604786 #### [facility] (DEFAULT) [address] [place] [address] 45648 Potassium [Moles/Vol] 3.8 mmol/L Normal 3.6-5.1 [facility] Comment on above: Performed By: #### 1 [id number], [id number], 7416265 #### [facility] (DEFAULT) [address] [place] [address] 28320 Sodium [Moles/Vol] 134.0 mmol/L Low 136.0-144.0 [facility] Comment on above: Performed By: #### 1 [id number], [id number], [id number] #### [facility] (DEFAULT) [address] [place] [address] 39684 Inpatient Patient Summaryon 09-18-2021 Inpatient Patient Summary [address] [address] Patient Discharge Instructions Name: SINGH ZAINA Morales : 1950 Patient Address: [address] [place] [address] Primary Care Provider: Name: Jeannine Hurley After you are discharged if you find you have any questions, please, call [phone] ext [phone] to speak to a nurse. [...] alcohol and/or drug addiction problems; contact the [facility] 05/09 Crisis Hotline -Text 4HOKC to 079262. If you received any narcotics, sedation, or [...] business decisions or sign any legal documents [facility] would like to thank you for allowing us to assist you with your healthcare needs. The following includes patient education materials and information regarding your injury/illness. ZAINA WINTERS has been given the following list of follow-up instructions, prescriptions, and patient education materials: Follow-up Instructions With: Address: When: Marina Redd [address] [place] [address] [address] [place] [address] Business (1) 10/01/2021 11:00 AM Medications During [...] weight to tolerance (more content not included)... [facility] Pharmacy Noteon 09-18-2021 Pharmacy Note I have [...] [Verified on: 09/18/2021 10:36 EDT] Emiliano Montgomery [facility] Progress Note - Nurseon Progress Note - Nurse Discharged to home. Prescriptions and instructions reviewed with and given to pt. He verbalized understanding. Taken to awaiting vehicle via wheelchair. All belongings sent with pt. [Electronically Signed on: 09/29/2021 14:49 EDT] Mildred David RN [Verified on: 09/29/2021 14:49 EDT] Mildred David RN [facility] Progress Note - Nurse POC discussed with pt. Educated on safety and ADL care once discharge home. He verbalized understanding [Electronically Signed on: 09/29/2021 14:49 EDT] Mildred David RN [Verified on: 09/29/2021 14:49 EDT] Mildred David RN [facility] Anesthesia Noteon 09-17-2021 Anesthesia Note Patient: ZAINA WINTERS Age: 70 years Sex: MALE : 1950 Associated Diagnoses: None Author: Eugene Castaneda MD Postoperative Information Post Operative Note: Operative Day. Anesthetic utilized: General. 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 Aftercare following left knee joint replacement surgery / SNOMED CT 822151105 / Confirmed Resolved: COVID-19 / SNOMED CT 0774064987 Resolved: Diabetes / SNOMED CT 104740481 Physical Examination VS/Measurements Vital Signs (last 24 [...] on: 09/17/2021 14:12 EDT] Eugene Castaneda MD [facility] Anesthesia Note Patient: ZAINA WINTERS Age: [...] All Problems Atrial fibrillation / SNOMED CT 07030492 / Confirmed FH: hypertension / SNOMED CT 199936263 / Confirmed History of post-polio syndrome / SNOMED CT 290886302 / Confirmed Aftercare following left knee joint replacement surgery / SNOMED CT 107176712 / Confirmed Resolved: COVID-19 / SNOMED CT 2360911150 Resolved: Diabetes / SNOMED CT 035319342 Histories Family History: CA - Cancer of colon Grandparent Heart attack Mother Grandparent Tobacco user Mother Father Brother Procedure history: Arthroplasty of knee using cement ([id number]) on 03/02/2021 at 70 Years. Back (046743199). Comments: 02/04/2021 10:08 Oliva Van RN surgery [...] Oriented. Review / Management Laboratory Results Plan [place] [employer]#(A SA) physical status classification: Class III. Anesthetic Preoperative Plan Anesthesia: General. , Regional adductor canal block for post op pain control per surgeon request. Anesthetic plan, risks, benefits, and alternatives discussed with the patient and/or family. Patient verbalized understanding. [Electronically Signed on: 09/17/2021 11:19 EDT] Kerro, Eugene M MD [Verified on: 09/17/2021 11:19 EDT] Eugene Castaneda MD [facility] MAGR Intraoperative Recordon 09-17-2021 MAGR Intraoperative Record MAGR Intra-Op Record Summary Primary Physician: DAVID AWAD DO Finalized Date/Time: 09/17/21 14:17:42 Pt. Name: ZAINA WINTERS Carmen /Sex: 1950 MALE Med Rec #: [id number] Physician: DAVID AWAD DO Financial #: [id number] Pt. Type: D Room/Bed: [facility] Admit/Disch: 09/17/21 08:03:00 - Institution: Case Times [...] Role Performed Surgeon - Primary Anesthesiologist of Line Pilot Record Time In 09/17/21 10:35:00 09/17/21 10:17:00 09/17/21 10:17:00 Time Out 09/17/21 13:32:00 09/17/21 14:10:00 09/17/21 14:10:00 Procedure Arthroplasty Knee Arthroplasty Knee Arthroplasty Knee Total(Right, Knee) Total(Right, Knee) Total(Right, Knee) Last Modified By: Zhanna Urrutia RN, Erica RN Baumer, Erica RN 09/17/21 14:17:37 09/17/21 14:17:37 09/17/21 14:17:37 Entry 4 Entry 5 Entry 6 Case Attendee Sue Rodriguez SOUS CHEF KITCHEN MANAGER Marjorie Esteves CST, PA-C, Matthew J Role Performed Cardiothoracic Anesthesia Technician Scrub Personnel Physican Manager Post Time In 09/17/21 10:17:00 09/17/21 10:17:00 09/17/21 [...] By Zhanna Urrutia RN Scrub 10% Povidone-Iodine Relampago Prep Area (more content not included)... [facility] MAGR Intraoperative Record MAGR Intra-Op Record Summary Primary Physician: Finalized Date/Time: 09/17/21 10:39:41 Pt. Name: ZAINA WINTERS D.O.B./Sex: 1950 MALE Med Rec #: [id number] Physician: DAVID AWAD DO Financial #: [id number] Pt. Type: D Room/Bed: 229/1 Admit/Disch: 09/17/21 08:03:00 - Institution: Case Times [...] RN, Brayan Altamirano Role Performed Anesthesiologist of Line Pilot Line Pilot Record Time In 09/17/21 09:55:00 09/17/21 09:55:00 [...] Signatures Signed By (more content not included)... [facility] MAGR PACU Recordon MAGR PACU Record MAGR PACU Record Summary Primary Physician: DAVID AWAD DO Finalized Date/Time: 09/17/21 15:19:58 Pt. Name: ZAINA WINTERS/Sex: 1950 MALE Med Rec #: [id number] Physician: DAVID AWAD DO Financial #: [id number] Pt. Type: D Room/Bed: 229/1 Admit/Disch: 09/17/21 08:03:00 - Institution: PACU Case Times MAGR Entry 1 In PACU I 09/17/21 14:10:00 Discharge from PACU 09/17/21 15:15:00 I Last Modified By: Vianca Celaya RN 09/17/21 15:19:57 Finalized By: Vianca Celaya RN Document Signatures Signed By: Vianca Celaya RN 09/17/21 15:19 [facility] 09-17-2021 MAGR Preoperative Record MAGR Pre-Op Record Summary Primary Physician: DAVID AWAD DO Finalized Date/Time: 09/17/21 10:43:23 Pt. Name: ZAINA WINTERS/Sex: 1950 MALE Med Rec #: [id number] Physician: DAVID AWAD DO Financial #: [id number] Pt. Type: D Room/Bed: 229/1 Admit/Disch: 09/17/21 [...] Signed By: Vianca Celaya RN 09/17/21 10:43 [facility] Nutrition Noteon 09-17-2021 Nutrition Note Pt [...] with in house available Ensure Compact BID. [facility] Progress Note - Nurseon Progress Note - Nurse IV fluids stopped for good PO intake at this time [Electronically Signed on: 09/24/2021 15:45 EDT] Raquel Duvall RN [Verified on: 09/24/2021 15:45 EDT] Raquel Duvall RN [facility] XR Knee One or Two Views [...] MD 09/17/21 4:07 pm Technologist: Abilio AMIN [facility] Progress Note - Nurseon Progress Note - Nurse Pre-op phone call complete. Reviewed arrival time of 0830 on Monday09/17/2021 and pre-op instructions with pt. Pt voiced understanding and is without further questions or concerns at this time. [Electronically Signed on: 09/16/2021 09:25 EDT] Brayan Roach RN [Verified on: 09/16/2021 09:25 EDT] Brayan Roach RN [facility] 2019 Novel Coronavirus (CoVI D-19), JULISSA LCon 09-14-2021 SARS-CoV-2 (COVID-19) RNA JULISSA+probe Ql (Unsp spec) Not detected Invalid Interpretation Code Not Detected [facility] Comment on above: Order Comment: [id number] Result Comment: This nucleic acid amplification test was developed and its performance characteristics determined by [employer]. Nucleic acid amplification tests include RT- PCR [...] detected) result in this assay. Performed At: [facility] [id number] Zay Landa PhD Ph:[phone] Performed By: #### 6 [id number] #### [facility] (DEFAULT) [address] [place] [address] Coding Summaryon 09-14-2021 Coding Summary HTMLBase 64 JklprqylSLd7dYd+PGhl YWQ+CP0YOTBdU94yeZYz aB5BP3bTUX3QSNRNTLHM KT6BSK3lnEY4JMddW9Er biAv YuqglOYnFY79IVr5LQZ8 vGbjDSvcuG7bvKDlT5b6 FgTzJR93nI27WGxoKNKi JjU1ZyAvicpsbXGj M8hcMkUjhEEfFkx+PHRh YmxlIHdpZHRoPScxMDAl UlAvbVetFS0gLq9wDWKi LWNvbGxhcHNlOiBj z5cxOOGuBZanYW0klThv A6BfrEE9XCVdg1j5Fc60 dHI+DAKyZFJ8hVpoJPey f316SkXpb4pcFWD0 gGOdWJdxYZB2I47uf0E6 DKWbYEHeWPG6hNX8yR6k vWbjkkwrR9YmpUBnFjH4 SMI6oYFrrZ5aoQti nkilgC9yYrv+O83NZE1L UZFHYV6RUte6D1EqQzxl dHI+NL92QBUkGO52zXLo kOFab1jtmYx0VgJi TCNkGQJ6vLedTZynx3Qi IRRdZ34bbAFsl4E6ETEs qJpzsVKfPqUnwYQ8yZ4e KLgkrqhgf2dggcmm Rucos4rgkn89lR98Y18d EBszEGOoCZL3WYOjHGPw pQuxge7ljP3tXc3+IDxj o2ili6ezsIk6ZsMn NOIzqgFvhVjhWSF0q2Dh Ig17E6IetAoig4CoQpt8 cl17lKObu2O5rNG2ZEjb YVNgqB9qIMvuLxV6 PRVsLxIfuD25xMGrTHvh Mb9mlZiwyKtyZC6fPSFm adrxHTFikC2pVRQiqQMz lWasNP3tMSOtiqnm t588GjUdTJS4SBJkhKMl P7EdsO2yNsKfTAAuMNNy L7ZbeSDbRFtjD153NQfl XiW2NLDwkwSlM2Ad YQOegNlzCtR4r5P5Is1J v4IahyzjQON1HQgkVXR1 MqPqRxJsTqF2X8JvQmd1 RRNdcQsjHO1pL9Hm AHSazmaarztsvEQ4ZLYd MWHfoY49nNDnDIomBn4d f0U4j277ZTNcAFFgtJ09 Ab8rhSdzSGEtsHOM sY2xerfxa8qzipppAeMm KJDeGPb9BYg7YKSqxXoh XmCnOMN3HqZ6LZL1xFCu vP3atOrcglioyW1v Oyc+Y35zjL4bMXU5HKQ9 ktoaQKLvnwDmWA54FO74 P3ZaZukfzMVyiLL+PGRp jhOqlXfaXP6cIlMk g1uwf7JkICxlZ5RvBHPt EUgmJxl3SAZrTQG2mSB3 eL6gJXJmECyqt7H9hFX5 A1KtioQlmi0io0ht FGTpQOphF74diMQed4V2 CMBvjXF7WSMhmGajKjUb uS61Int+NENjmZerk5Rv Vwojf1qza1nbeQj4 IjMwJSIgdmFsaWduPSJ0 u9HcTw69G31sKUfyLFBl MDVmWWSoIEJahDtuaj3a uB3zFf4+PGNvbCB3 yTR3eV4jETRyYjU8OIhf D869SoRvaORlTqiua6dp h7owvOg4BoCyRTCmarAv yQjoNOV4l8WyEi78 K24tDLftGZUlVIZrEBNo LSLtaGowbl0gjE4dRo5+ JF0iw2kfme74kG10rWR+ MEBqFKL2hRpkRFqg UFJbhZ6pUUifNyF1GMMz XySksO36nHPiSKujVy9d fBqlvLnuPR7oJJBvrmpc b357RxOlq6udQSMz fMUiXVjtBFS8R56ey8U8 MOJmRIJkUOB6xIQ6qQ7f bGlnbjogbGVmdDsgdmVy cJzwKPzeVDyyP257 IHRvcDsnPlBhdGllbnQg NnBtVUs9Y7VqAnh5AXZd pZnbHV2fxJLgKVuuNd9r kGzvlFygRA4cLHDb gfamv926XgGnm2gnWMKx tXTlBZgpWRA6I43qu9X6 SAHoSXRsRFV9oTH1gL2v bGlnbjogbGVmdDsg ebSbtNgyIZonZQrdI909 IHRvcDsnPkJpcnRoIERh vYF0KO09VP82uWOkq2G8 sCP2P9WqMJDpjrtn rgzphCV5RKLjAFTimI60 Sz6ziIfvLp1vTCPuVZS6 CUZbjXIoM0GofU5xXtZa TLKvGSXmN5GtfBVa JTrhM702QRjlJlX0DXLv clGnK9LnYPMylAbaWcM8 w4E7Rr2UK3D9WS15NA83 dBNsn1B8rLM9Z1Ys DPAszhnximkjdWX0DWZl XRIndJ76Ak5odFkyOh7v ITRaZIZ6KJHamMIzK3Bs iE3wSvBmXERoLEKm X6RsaUDrKJpbM686DHzt TmM8TBHpahQnS9DnTWKx gUgwVnV4w1B0Tn9WKJb5 WJ91DN79vZQkf8U8 uKI6N0XcLXUnlinxmlql hXX4XVZaFKBhcN62Iu6g hFcwMy1dMOYeHKB8ZFYs sUSlF5IzwE7zClZt WVRcEHNvB8DjrDVcQTlm I488XRxdJqE9CQZigsZj E6HlSTNmsFvoJxQ8g2G9 Ql8LOKYwJK43NLK4 jHC8NB97LQ45H6JaInue dGFibGU+PHRhYmxlIHdp ZHRoPScxMDAlJyBzdHls VG5eCn1pTCRvNPMu rFditNEaPqEhb6mcBEBq OWgxRG8mzWxcP4WrxUY3 ULQqw2p4Ad78M25mH9Mw dXA+MBUneOD7qFC1 bF8rKsChXzK6CMjkZ517 EzMrwYXpHhikm1lnr1cx tYr6UjP0DUFagbGmyQbs GEC5o9KyEj49C53u IHdpZHRoPSIxNSUiIHZh mYhuij0wiO0hCy2+PGNv rVX9sNF4qF4dXxCoClU9 KIcpI896YmMtwDOd Dgqpe5pcf3twbWl0GmPh MLPrstRqxBboAEP9q4Pp Up88T2CadMcdb5HxPob2 fq67iHOes9Y3jAU9 B2XrEJMkfkwbqQFczGls PN7bIPSoetmmNNAwuO9b WXViP1m1BkZfAmF3CMfv T4ZhdlY5UQBhoDOl IFzdHLH1J80nl0K2UINv AYQeEVC3nSC7bL9bqGgq bjogbGVmdDsgdmVydGlj UTusXSdhZ527ZDPn hYzvSVSteZ9pLIYlzQPp kPzpEZ9cSRDjlzhbQouI QkVSTElORywgTEFXUkVO M5FeLYcheFR+PHRk IMO0aZfcZNzsAXTjiH7j YYNzA3m9TnWkCrL7BLsk Z8KiEWYubxiyUj65zX4i FiDoBgT0PQwuZ3Ob hhG4OEYwfBErYCriRPO2 T48nh0E0VUAaFAJtNUL9 vXJ8hY3qmIquqizvwKHq dDsgdmVydGljYWwt KRknI890YKBqjKepXyT9 MeVuCfC8YJc5W3IhVso6 PWRayVdqBU9uuUDpOPow Nw3vmGckkNzvVC2m UQHevgxiGDRwhQ8dTCDv nGIamWzrAR0aWONcmqxr v093PxFxELO6GBUmwBFz U1TapJ0xGxPzTEOg PCAyC3MugQQxMQcxN639 TOxuUtW8IQMxutDkP0Id KNLejSxmYmW2v0N0Aq42 MiBZZWFyczwvdGQ+ UMByWVX3hUkqHEriDJAi iQ8mEEGgD0d9VyLhEcG6 KWqvI0KmAMGmqkjrOf98 tT4aAgEqEbV9WXku A7AzvtV0UMYjaIPsCBfd CYF2H67in2E7VJBuGTVe ATW5xZU3aK6xcYsivhjk bGVmdDsgdmVydGlj LSpzRDgcA659BFWlmTxl Jg7YBIH5M7DvDgu4RTRu gXzuVE2niOYzROudCz5l fWneaRhsXC5iOODv flkmUVVzvP1kWHTkfRKq nFciRT3cTSPsoeits446 IkUoQCP6IYLpvSUpE6Xu kO1hQzGzDBTzPLGp U2FbbYDeQFepZ794OSxm KuA2NOStatQbH1CkXGNv wDjmLgJ5q8S5Ao7FGFku dGQ+NF28eq30T0Mi EgxwIyc6EHEhCOF3iBQ1 jZ4zWUJlHDydl3H0kBB3 W7PasrFcdu0gz2djBZOs NTtcK11srEEim1O1 AEBkbFT3CTMofZelJeKn iI91Skr+BFIwgFjbh6Kt Fvzfe5qun1wbqEj0OpMu JSIgdmFsaWduPSJ0 n9XiTs37D48nFVzkOBQm WJSpKUIkDWGiiRnrhp4f kO2tJm0+FGWdtIO6ySI0 xQ4nLgQgYmC4MWue Z923EeZgcDVyEdrsr1he f7bagAq1VbKnVJTpjpNo kGxnBXA1l9HlJz48Z8Mq mJyxv4UjHzz0yh64 oCGao2D9jOG2O9PyDXVl vgntiABwjSikHX7jFJOh pqccLQZzmT7fMFIpB4i6 EiUcFfR1NDbiZ2Is icO6XPJbqTKdNNIwrFJB yO2lpwqan8weyluhOoRj FUNjPFq0TKc0LPYahDbw OxGeXMC7BdE0QGT9 pUPajW1uiYsodtknhM5v Oyc+VGg4u4ojnOOmLL2p jCB4DM93KP63fUMvg0P6 tSE6T2VvTCWpuzwh bljqoAE9PHFwSNFmsR07 Cv4loLcwLn4xCVExQFU6 EJPcjBHnY1NueN4tEmSu UISgGLCzG5SfhEEx MEwrM397FSzqGlO8RHCd hxMyW9YsMMWsnNvlCbN9 a9V5Nc8QYU69PP09RN75 cCMjg7L6xHJ3A0Zj IJAylmlzezlrfZD7CZHv HUArfM47Ni9qwIuuSv9q HKUeKTX4ECOlfKNlF7Wc pI5xAsGmPHCuRPMh Q4KkbUAtQBznF373NFwm JfN6LKOapnPqM3ZhVSOs dPbdOuC2t0E0Mx9KJg37 TF45FJ56fJXmf5K9 sXP8Q6GdSYJddefybujd ySW7WWMgKTCglF18Fz2h cRobMu4wYOOgBEP5SDOt fYHaS7OifF7iRgFl CPNwKRZuW3MnkNOtLRlh F501IWyuRnE7ABAvzvIi M5LzDCBjnVpaAzB8d6N1 Vz9LSUipbuy8Y1Eb PjwvdHI+RW52IJNqMI88 nPIljOBhq7gayWt0CqQl GARkAGA0lGdgGYnmq8Gq WKUnU17koCBen8S2 IGN (more content not included)... Normal [facility] C Urineon 09-03-2021 C Urine <10,000 cfu/ml [facility] Comment on above: Performed By: #### [id number] ####[facility] [place] (DEFAULT)[address] [place] [address] Progress Note - Nurseon 08-14 Progress Note - Nurse PAT chart for 09-17-2021 surgery reviewed per anesthesiologist, Dr Mccauley- no additional orders received. [Electronically Signed on: 09/02/2021 13:45 EDT] Rita Molina RN [Verified on: 09/02/2021 13:45 EDT] Rita Molina RN [facility] Provider Orderson 09-02-2021 Provider Orders [id number] #[id number] Normal [facility] .Auto Diff 1on 09-01-2021 Auto [place] % 9 % Normal -12 [facility] Comment on above: Performed By: #### 1 [id number], [id number], [id number] ####[facility] [place] (DEFAULT)[address] [place] [address] 46187 Baso Abs# 0.0 x10 Normal 0.0-0.2 [facility] Comment on above: Performed By: #### 1 [id number], [id number], [id number] ####[facility] [place] (DEFAULT)[address] [place] [address] 01414 Basophils/100 WBC (Bld) 0.6 % Normal 0.2-2.0 [facility] Comment on above: Performed By: #### 1 [id number], [id number], [id number] ####[facility] [place] (DEFAULT)[address] [place] [address] 79648 Eos Abs# 0.0 x10 Normal 0.0-0.4 [facility] Comment on above: Performed By: #### 1 [id number], [id number], [id number] ####[facility] [place] (DEFAULT)[address] [place] [address] 31570 Eosinophils/100 WBC (Bld) 0.7 % Low 0.9-4.0 [facility] Comment on above: Performed By: #### 1 [id number], [id number], [id number] ####[facility] [place] (DEFAULT)[address] [place] [address] 61322 Lymph Abs# 2.2 x10 Normal 1.3-2.9 [facility] Comment on above: Performed By: #### 1 [id number], [id number], [id number] ####[facility] [place] (DEFAULT)[address] [place] [address] Lymphocytes/100 WBC (Bld) 31 % Normal 14-48 [facility] Comment on above: Performed By: #### 1 [id number], [id number], [id number] ####[facility] [place] (DEFAULT)[address] [place] [address] [place] Abs# 0.7 x10 Normal 0.0-0.8 [facility] Comment on above: Performed By: #### 1 [id number], [id number], [id number] ####[facility] [place] (DEFAULT)[address] [place] [address] Neut Abs# 4.1 x10 Normal 1.5-9.2 [facility] Comment on above: Performed By: #### 1 [id number], [id number], [id number] ####[facility] [place] (DEFAULT)[address] [place] [address] Neutrophils/100 WBC (Bld) 58 % Normal 44-88 [facility] Comment on above: Performed By: #### 1 [id number], [id number], [id number] ####[facility] [place] (DEFAULT)[address] [place] [address] Standardon 09-01-2021 eGFR Non AA >60 Invalid Interpretation Code [facility] Comment on above: Performed By: #### 1 [id number], [id number], [id number] ####[facility] [place] (DEFAULT)[address] [place] [address] eGFR AA >60 Invalid Interpretation Code [facility] Comment on above: Result Comment: [employer] Attendant korina Kidney disease could be indicated at eGFRs of less than 60 ml/min/1.73m2. Kidney Failure is indicated at less than 15 ml/min/1.73m2 Performed By: #### 1 [id number], [id number], [id number] ####[facility] [place] (DEFAULT)[address] [place] [address] Anion gap [Moles/Vol] 12.0 mmol/L Normal 5.0-19.0 [facility] Comment on above: Performed By: #### 1 [id number], [id number], [id number] ####[facility] [place] (DEFAULT)[address] [place] [address] 44702 Calcium [Mass/Vol] 9.7 mg/dL Normal 8.9-10.3 [facility] Comment on above: Performed By: #### 1 [id number], [id number], [id number] ####[facility] [place] (DEFAULT)[address] [place] [address] 49618 Chloride [Moles/Vol] 102 mmol/L Normal 101-111 [facility] Comment on above: Performed By: #### 1 [id number], [id number], [id number] ####[facility] [place] (DEFAULT)[address] [place] [address] 37574 CO2 [Moles/Vol] 29 mmol/L Normal 21-32 [facility] Comment on above: Performed By: #### 1 [id number], [id number], [id number] ####[facility] [place] (DEFAULT)[address] [place] [address] 42561 Creatinine [Mass/Vol] 0.94 mg/dL Normal 0.90-1.30 [facility] Comment on above: Performed By: #### 1 [id number], [id number], [id number] ####[facility] [place] (DEFAULT)[address] [place] [address] 90200 Glucose [Mass/Vol] 109.0 mg/dL Normal 74.0-118.0 [facility] Comment on above: Performed By: #### 1 [id number], [id number], [id number] ####[facility] [place] (DEFAULT)[address] [place] [address] 81183 Osmolality 281 mOsm/L Invalid Interpretation Code [facility] Comment on above: Performed By: #### 1 [id number], [id number], [id number] ####[facility] [place] (DEFAULT)[address] [place] [address] 90079 Potassium [Moles/Vol] 4.1 mmol/L Normal 3.6-5.1 [facility] Comment on above: Performed By: #### 1 [id number], [id number], 6983785 ####[facility] [place] (DEFAULT)[address] [place] [address] 22900 Sodium [Moles/Vol] 139.0 mmol/L Normal 136.0-144.0 [facility] Comment on above: Performed By: #### 1 [id number], [id number], [id number] ####[facility] [place] (DEFAULT)[address] [place] [address] 09377 Urea nitrogen [Mass/Vol] 21 mg/dL Normal 8-26 [facility] Comment on above: Performed By: #### 1 [id number], [id number], 8903662 ####[facility] [place] (DEFAULT)[address] [place] [address] Urea nitrogen/Creatinine [Mass ratio] 22.0 mg/mg High 4.6-16.2 [facility] Comment on above: Performed By: #### 1 [id number], [id number], [id number] ####[facility] [place] (DEFAULT)[address] [place] [address] 09437 CBC w/ Auto Diffon 2 Erythrocyte distribution width (RBC) [Ratio] 14.0 % Normal 11.5-15.0 [facility] Comment on above: Performed By: #### 1 [id number], [id number], [id number] #### [facility] [place] (DEFAULT) [address] [place] [address] 08227 Hematocrit (Bld) [Volume fraction] 45.0 % Normal 34.8-51.9 [facility] Comment on above: Performed By: #### 1 [id number], [id number], [id number] #### [facility] [place] (DEFAULT) [address] [place] [address] 89716 Hemoglobin (Bld) [Mass/Vol] 14.5 g/dL Normal 11.8-17.7 [facility] Comment on above: Performed By: #### 1 [id number], [id number], [id number] #### [facility] [place] (DEFAULT) [address] [place] [address] 03162 Instr WBC 7.0 x10 Invalid Interpretation Code [facility] Comment on above: Performed By: #### 1 [id number], [id number], [id number] #### [facility] [place] (DEFAULT) [address] [place] [address] Man Diff? Auto Normal [facility] Comment on above: Performed By: #### 1 [id number], [id number], [id number] #### [facility] [place] (DEFAULT) [address] [place] [address] MCH (RBC) [Entitic mass] 30 pg Normal 24-34 [facility] Comment on above: Performed By: #### 1 [id number], [id number], [id number] #### [facility] [place] (DEFAULT) [address] [place] [address] MCHC (RBC) [Mass/Vol] 32 g/dL Normal 26-37 [facility] Comment on above: Performed By: #### 1 [id number], [id number], [id number] #### [facility] [place] (DEFAULT) [address] [place] [address] MCV (RBC) [Entitic vol] 93 fL Normal 81-100 [facility] Comment on above: Performed By: #### 1 [id number], [id number], [id number] #### [facility] [place] (DEFAULT) [address] [place] [address] Platelet 216 x10 Normal 138-427 [facility] Comment on above: Performed By: #### 1 [id number], [id number], [id number] #### [facility] [place] (DEFAULT) [address] [place] [address] Platelet mean volume (Bld) [Entitic vol] 10.2 fL Normal 6.3-10.2 [facility] Comment on above: Performed By: #### 1 [id number], [id number], [id number] #### [facility] [place] (DEFAULT) [address] [place] [address] RBC 4.86 x10 Normal 3.70-5.30 [facility] Comment on above: Performed By: #### 1 [id number], [id number], 6851613 #### [facility] [place] (DEFAULT) [address] [place] [address] WBC 7.0 x10 Normal 3.5-10.5 [facility] Comment on above: Performed By: #### 1 [id number], [id number], 4555995 #### [facility] [place] (DEFAULT) [address] [place] [address] XR Bone Length Studies Scano gramson 09-01-2021 [...] MD 09/04/21 4:45 pm Technologist: Elysia SIMONS [facility] Complete Blood Count with Au to Diffon 06-09-2021 Basophils (Bld) [#/Vol] 0.04 10*3/uL Normal 0.00-0.20 [facility] Comment on above: Performed By: #### C MP, CBCAD #### [facility] [address] [place] [id number] Basophils/100 WBC (Bld) 0.6 % Normal [facility] Comment on above: Performed By: #### C MP, CBCAD #### [facility] [address] [place], [place] [id number] Eosinophils (Bld) [#/Vol] 0.11 10*3/uL Normal 0.02-0.50 [facility] Comment on above: Performed By: #### C MP, CBCAD #### [facility] [address] [place], [place] [id number] Eosinophils/100 WBC (Bld) 1.7 % Normal [facility] Comment on above: Performed By: #### C MP, CBCAD #### [facility] [address] [place], [place] [id number] Erythrocyte distribution width (RBC) [Ratio] 13.7 % Normal 11.0-15.0 [facility] Comment on above: Performed By: #### C MP, CBCAD #### [facility] [address] [place], [place] [id number] Hematocrit (Bld) [Volume fraction] 43.3 % Normal 38.5-50.0 [facility] Comment on above: Performed By: #### C MP, CBCAD #### [facility] [address] [place], [place] [id number] Hemoglobin (Bld) [Mass/Vol] 14.1 g/dL Normal 13.0-17.1 [facility] Comment on above: Performed By: #### C MP, CBCAD #### [facility] [address] [place], [place] [id number] Lymphocytes (Bld) [#/Vol] 1.7 10*3/uL Normal 0.9-3.9 [facility] Comment on above: Performed By: #### C MP, CBCAD #### [facility] [address] [place], [place] [id number] Lymphocytes/100 WBC (Bld) 26.3 % Normal [facility] Comment on above: Performed By: #### C MP, CBCAD #### [facility] [address] [place], [place] [id number] MCH (RBC) [Entitic mass] 29.1 pg Normal 27.0-33.0 [facility] Comment on above: Performed By: #### C MP, CBCAD #### [facility] [address] [place], [place] [id number] MCHC (RBC) [Mass/Vol] 32.6 g/dL Normal 32.0-36.0 [facility] Comment on above: Performed By: #### C MP, CBCAD #### [facility] [address] [place], [place] [id number] MCV (RBC) [Entitic vol] 90 fL Normal 80-100 [facility] Comment on above: Performed By: #### C MP, CBCAD #### [facility] [address] [place], [place] [id number] Monocytes (Bld) [#/Vol] 0.6 10*3/uL Normal 0.2-0.9 [facility] Comment on above: Performed By: #### C MP, CBCAD #### [facility] [address] [place], [place] [id number] Monocytes/100 WBC (Bld) 9.6 % Normal [facility] Comment on above: Performed By: #### C MP, CBCAD #### [facility] [address] [place], [place] [id number] Neutrophils (Bld) [#/Vol] 3.9 10*3/uL Normal 1.5-7.8 [facility] Comment on above: Performed By: #### C MP, CBCAD #### [facility] [address] [place], [place] [id number] Neutrophils/100 WBC (Bld) 61.5 % Normal [facility] Comment on above: Performed By: #### C MP, CBCAD #### [facility] [address] [place], [place] [id number] Platelet mean volume (Bld) [Entitic vol] 11.30 fL Normal 7.50-12.50 [facility] Comment on above: Performed By: #### C MP, CBCAD #### [facility] [address] [place], [place] [id number] Platelets (Bld) [#/Vol] 222 10*3/uL Normal 140-400 [facility] Comment on above: Performed By: #### C MP, CBCAD #### [facility] [address] [place], [place] [id number] RBC (Bld) [#/Vol] 4.84 10*6/uL Normal 4.20-5.80 [facility] Comment on above: Performed By: #### C FRANCISCA, CBCAD #### [facility] [address] [place], [place] [id number] RDW-SD 44.9 fL Normal 37.0-50.0 [facility] Comment on above: Performed By: #### C FRANCISCA, CBCAD #### [facility] [address] [place], [place] [id number] WBC (Bld) [#/Vol] 6.4 10*3/uL Normal 3.8-11.0 [facility] Comment on above: Performed By: #### C FRANCISCA, CBCAD #### [facility] [address] [place], [place] [id number] Comprehensive Metabolic Pane [facility] 06-09-2021 Albumin [Mass/Vol] 4.6 g/dL Normal 3.6-5.1 [facility] Comment on above: Performed By: #### C FRANCISCA, CBCAD #### [facility] [address] [place], [place] [id number] Albumin/Globulin [Mass ratio] 2.2 {ratio} Normal 1.0-2.5 [facility] Comment on above: Performed By: #### C FRANCISCA, CBCAD #### [facility] [address] [place], [place] [id number] ALP [Catalytic activity/Vol] 80 U/L Normal 40-129 [facility] Comment on above: Performed By: #### C FRANCISCA, CBCAD #### [facility] [address] [place], [place] [id number] ALT [Catalytic activity/Vol] 16 U/L Normal 9-46 [facility] Comment on above: Result Comment: 01/13 Female reference range changed. Performed By: #### C FRANCISCA, CBCAD #### [facility] [address] [place], [place] [id number] Anion gap [Moles/Vol] 17 mmol/L Normal 12-20 [facility] Comment on above: Result Comment: Effe ctive 02/18/2019 reference range changed. Performed By: #### C FRANCISCA, CBCAD #### [facility] [address] [place], [place] [id number] AST [Catalytic activity/Vol] 22 U/L Normal 10-40 [facility] Comment on above: Performed By: #### C MP, CBCAD #### [facility] [address] [place], [place] [id number] Bilirubin [Mass/Vol] 0.40 mg/dL Normal 0.30-1.20 [facility] Comment on above: Performed By: #### C MP, CBCAD #### [facility] [address] [place], [place] [id number] BUN/CREA 20 Ratio Normal 6-22 [facility] Comment on above: Performed By: #### C MP, CBCAD #### [facility] [address] [place], [place] [id number] Calcium [Mass/Vol] 9.4 mg/dL Normal 8.6-10.2 [facility] Comment on above: Performed By: #### C MP, CBCAD #### [facility] [address] [place], [place] [id number] Chloride [Moles/Vol] 101 mmol/L Normal 98-107 [facility] Comment on above: Performed By: #### C MP, CBCAD #### [facility] [address] [place], [place] [id number] CO2 [Moles/Vol] 26 mmol/L Normal 20-31 [facility] Comment on above: Performed By: #### C MP, CBCAD #### [facility] [address] [place], [place] [id number] Creatinine [Mass/Vol] 0.7 mg/dL Normal 0.7-1.4 [facility] Comment on above: Performed By: #### C MP, CBCAD #### [facility] [address] [place], [place] [id number] eGFRAA 132 mL/min/1.73m2 Normal >60 [facility] Comment on above: Performed By: #### C MP, CBCAD #### [facility] [address] [place], [place] [id number] eGFRNAA 109 mL/min/1.73m2 Normal >60 [facility] Comment on above: Performed By: #### C MP, CBCAD #### [facility] [address] [place], [place] [id number] Globulin (S) [Mass/Vol] 2.1 g/dL Normal 1.9-3.7 [facility] Comment on above: Performed By: #### C MP, CBCAD #### [facility] [address] [place], [place] [id number] Glucose [Mass/Vol] 98 mg/dL Normal 65-99 [facility] Comment on above: Result Comment: For FASTING Glucose --- ADA reference ranges: Normal 65-99 mg/dl Prediabetes 100-125 Diabetes >/= 126 Performed By: #### C MP, CBCAD #### [facility] [address] [place], [place] [id number] Potassium [Moles/Vol] 3.9 mmol/L Normal 3.5-5.5 [facility] Comment on above: Performed By: #### C MP, CBCAD #### [facility] [address] [place], [place] [id number] Protein [Mass/Vol] 6.7 g/dL Normal 6.1-8.1 [facility] Comment on above: Performed By: #### C MP, CBCAD #### [facility] [address] [place], [place] [id number] Sodium [Moles/Vol] 139 mmol/L Normal 135-146 [facility] Comment on above: Performed By: #### C MP, CBCAD #### [facility] [address] [place], [place] [id number] Urea nitrogen [Mass/Vol] 14 mg/dL Normal 7-25 [facility] Comment on above: Performed By: #### C MP, CBCAD #### [facility] [address] [place], [place] [id number] Hemoglobin A1Con 06-09-2021 EAG 136.98 Normal [facility] Comment on above: Performed By: #### A 1C #### [facility] [address] [place], [place] [id number] HbA1c (Bld) [Mass fraction] 6.4 % High 4.0-6.0 [facility] Comment on above: Performed By: #### A 1C #### [facility] [address] [place], [place] [id number] Q - B-TYPE NATRIURETIC (BNP) on 06-09-2021 Natriuretic peptide B (Bld) [Mass/Vol] 33 pg/mL Normal <100 [facility] Comment on above: Order Comment: [facility] performed at: QPT, [facility], [address], [address] [place], [address], [employer]ap [employer] Architect: Curtis Lyons MD [facility] Collection Date/Time: [id number] [facility] Results Received Date/Time: [facility] Reported Date/Time: FASTING: NO Result Comment: BNP levels increase with age in the general population with the highest values seen in individuals greater than 75 years of age. Reference: J. Am. Cheryl. Cardiol. 2002; 40:976-982. Performed By: #### 3 [id number] #### [facility] [address] [place] [address] Coding Summaryon 03-16-2021 Coding Summary HTMLBase 64 VznokmqsAWb1qLo+PGhl YWQ+QS9VOMIsJ76hjHNu dZ1IN2fBEB2AUFYZVVQG RK3SIP1lcKD0XKemZ4Eb biAv EgptaHWkLG84XOq6EKK2 fVufXZxfgT3joQJmN9s0 ShKuHK02fZ36PVndJBNk BqD5LeToinrsuEIj N4ysUnKmvPLjXhi+PHRh YmxlIHdpZHRoPScxMDAl XnBlmMdmEU0uMf5oUZNs LWNvbGxhcHNlOiBj i1zjZZRaMEojKR1pqOgx P0RsrMK1TJBiq1l0Zo25 dHI+MMGzRFM6oJriWGml l365RfTdn1hnLXM6 lAPuWXfgTZW6U76xz7Z4 XHXzZLEuXXS0uZA2eX3o iBhawmcwN4FyiUUuThW0 FRA0lMUkmM5biJnw enuuiV9pJcz+I62LKC1Z OTFLZH1YFef6D3RwKqmb dHI+BM60IWCxHQ73kQUx vPBzf8irvVt9RrCq PLUzOJX0aXzbIIcoj3Jr TXGyD69qhCXzo0P7PAJl cGrynSCmAuCozVP0uW3j WRzdktroy5abrjcy Wvgsp5msym93vE18V32h AVpuHPVlUCD5LOAtCXQl lNcsxp9vcE9vVu6+IDxj h5avd8ekvEv0VfEb EIMsfnUwbKcvHTI5g4Xa Bl06Y5ZrcKwyu4DnBni1 eh74cLBqz9O9yAB1URsl QFGyyT9lTPnuOzR9 LAXoJhOqaV27pQQyWHxy Ar8bwUprmLxuLA8lRURr rgfhTCAtgS8xBGCvxWBf hAmuON4tOJTuraog k763FpAaUVV5QKDkeAMd D2AzxQ2sFwIwAIYcDYJs L5LwjOZaMAgiY551BSxa EoM5KLLsbsQoG5Hi KIEjiRhoMnI4h7I6Qb9M a9FxhkomWFK4GPteNGSw TeToEwPtVuK9P3YbQyn8 NKSlvPtkSC4nA4Dw DYNitpsjewqqhTY2EQXx KCGcyD95hRQwWVcoAl0n f8H5o875SLLcGPJqpX28 Gu6mbRunGFPvxFFI lV4wlpzaf9qyckblZzMv JLMpTWf0OFc8EYGquFzz IfWjLJQ8OfH6ZPF8uZOv pH2haJtbnlxjsU0m Oyc+S44jjI5rOGJ5AZO9 qcecPBHcloCdGY52ES65 W9MyEvxdwYIsvRV+PGRp gcUbeKmkHK2nBxWr k8lbn6MkYTqqE7ClRRVu TNosPml7BGKaDKU8eOR9 uC2bQSMbAGvlg4N6qAP3 S4HkraLepy1fq9xm PHIuRChfJ74dzQFyr8M7 UYFsbYA2WFOtbZjlJrWw tC71Wee+JTQdgHxar4Ws Mcbmv6hpt3nsbXu1 IjMwJSIgdmFsaWduPSJ0 y2YsWo53Z66rCRkqVTIm JTCyYLPhWRRqhQvabr3x uV8pRr2+PGNvbCB3 lWS5nD9lBDHvSrE6MMup H844WpNpgRRqXvkxf5tj c7wgnAn0SbRvHRDlwtKx hJqkKUO3x4HrIc89 N52kNVzqKVCaPQLcRGIk OCXahWfqdy6nxG0eWt0+ OE9ek2jfxl53sG61lOH+ IOGiQQE8gHogRCwi WVYgzA0uEGzmSvM0BMHe PcDinN67vQYjKJwcDz7c wXjooQspLQ2oWJRpcrlj k538GyWbc1fsVPOv sJJySBdrLKD4Q27yu6D8 DXDlKRLrNFC2cDH6yK2l bGlnbjogbGVmdDsgdmVy lYshVJrpKZqaU714 IHRvcDsnPlBhdGllbnQg YjXyXSt8D4RuAuw1LOCw jOzjLO6yeWPoMAkpKf6p pHqtiCrbWH0kODYy zyllp709VkLhb7koHYGn zODdPNqwQDA0R26rh7R8 GARuYQUbTKF1tFE5aJ7a bGlnbjogbGVmdDsg sbFgdXezASpkFRkkB008 IHRvcDsnPkJpcnRoIERh eJQ3MK55EK45zCGxv5I9 wFN2V8ArAFWccnfh xmosfLV6TXGrEJQylZ56 Zt9ymQzsKq9tZNVwOLF7 LEXgjNSxA9JjlV7oWsQz DEKoYFVpI8EjzUKy YLaaJ428JLwnPsK7DUTb fyMjI1QmKPUddHxrVbH5 n1D4Sa7OB4T1DV76AO97 gSIpy9K5bSN0Q1Mo CFVpiyosilfhvOA9AWEa OBZmzM78Jd4zzNevDq0p UJExJZJ1IQOeyGNkM3Dq qS0wNwZwQMPoXRXr C7LfuMHkUDxnE053EMlh YbN9NWTdteCoF0DiJQXp wRzkNaB2a1X5Hz1ZIJp6 BR53TU41iVOov6Y1 sYK4D3SiQTKustnqvbmd xKX5DNOcPDCdiE09Bu0f zHgwEl3dVVUiFQH9WNRs lIEsE3BjfD5xYeOc JTVpEXHlI0OebIQkQDdu N543FZltHxJ3EJYbppRo M1PfRNCytXisWdC8a4U2 Lk8GSILtQI31KXL8 lND5ER22UE27X6OjCjko dGFibGU+PHRhYmxlIHdp ZHRoPScxMDAlJyBzdHls MB1hLu1wQKXxULSp wNmkmHZyKvVgh9swTPZm ZIipIA8nhHbgV8GvxFC5 MVCpr4a7Cx32P39yW9Tl dXA+WPMirGW8sKA6 fQ6oVqMvKpH0RSmcW210 SyUafJWdOoagv9wrk1jl hEd4NiH2IKSrtjKmrJsh WQQ8t5VfBi78M86d IHdpZHRoPSIxNSUiIHZh nKcdqc8lsA3nRu9+PGNv gZB7nGA0fZ8gRrLlGmS6 RUkyW677NtVrhZZs Xqemd4qhu5voxTr2RcEm CSBgjxFnlDybPPG1q9Ng Le23U3IhxGtqm7YgZcc8 pv95tYQmz6V3dBW3 C0QcZEQsgbajhHRogQmw XI3mMGSxlbjfKXYbzE0z CIWiN7r9GiWgNpU0XSov Q4WjmjW6NVNcrHSy VCikONE8S66zo2A5CTSw YVSrKQP3fHJ8aS8fgXgt bjogbGVmdDsgdmVydGlj AKgqGRlsR632UYRp oQcmLGSxxW4yBFDggRUu wFqyYN6iUDAhigkdPylL QkVSTElORywgTEFXUkVO B4PsDXtnkUK+PHRk KQG7eZkoAKnzDQQftF2z EJRgA5n5UoIyNcM2TXhh F6FjCJIjnwddGk76fO4j JnBvNeV9AMtnK4Rf ajD1TEAqdBPrJYvjGNH0 G79zn8Q1GCQzKOAnSRA4 wVZ7pZ5hgSozhgczlTPr dDsgdmVydGljYWwt SLqdK317OLThhFqaRjX8 PmBxHlW9PTl0J6YvJeh5 LUTypSxhES2xhXNtMPtq Rw8cnByobEyyAZ4d IOXavgehLUCegO2tPGDd nCQoqGwqZA7lMKFcckpq j792PsTvAAF8XUEpdJMm J2TooX3wTbTlJOOh WYUdZ1KqyXQhVHxjF639 PUoqBlX1MZYslhKuB2Sq QCHcxKeeReZ4l5G3Ur07 MiBZZWFyczwvdGQ+ IVOiGQP3aYszFOobKFYe qO6jMKOvO4b4PoKaDxU4 EJibD3DkHEWdftacKt03 eI9xLiZpWsW2BJep P3MgylJ2BKDgpRGwAMzw ILG8X05hh9P5JITgHUPt GAT6bTV8qO8quIprwdjl bGVmdDsgdmVydGlj FCdnPMqhZ620MIHwtEnx My0PRHU9R8RvNmf9GJXj wZxzVQ7bkUZuDVxbMs1i fIvwnAzcFF6eKTAx iazsWTMmhL6yHUYkbRTy lHjbVX3kEXPcmiwag099 GnWwNIY8WIYbeLGzK3Gr vP6fOiUpBRLwGCHu Y4YcjIRwHYncX107OUst XoA1ODKuqeVuC6RwVNUi pWjiLsZ8u8O2Fd3CZOpe dGQ+MQ17ao18N3Ig LkybMjf9FSPtBND5iVS1 xV9jUHMmUTqrs5X2zKI7 W7QtzaWpcy3gg8wnOMGs EXglK38lxFIoo0X6 NCOhzPQ1EZGubWgaEcDn rG30Qxv+ADAexPdql5Vq Emzve8pra6vtaFt8UzKn JSIgdmFsaWduPSJ0 s3KnDu61X87uGBrkGQCp PGTnVRXmUTHbuPfwwl4z kW3gPt9+QBIfsJO5hWU4 fB4qLiTzQgN8BVdk C920FwXagHLeYzrgi1ch c2jwrHf5VjRbTEQlqyHj hTacLWG4w5QyNy92Z0Ff kTpty4SzGkz1nn80 iEHzw9J6xTX2K0WoMIVq amcyeAVfqRngKL2pUUZl ckbqAAMplV8mOKMdG3f1 RcEvYnQ2NPlkD1Ss wqU9WPGaqUNpDJJkyVFG eG4bbtaqn0wjsjcjEhGs IBBlWEd7XVl7JICsrOcq ZrCqEDB6CgW0EQA8 yHFsjD9wnLscxdjmsH8x Oyc+BFx3j5pgvILdCA2q hJW9BU98DK41rFYzu1F2 kBA4N1OoBZQdwddr kpwfcHA0VWTaSCLnzY54 Os1hmLbeLo9kHELlRWS1 CNQwvDUeB7OtgJ0sPxYq VVSjTAOcR4YfgTJx LSekK769SAinKxU0WDLr zxJrA5GdFDAzkTkrItY8 s0W5Zr2XDL33DV00QM86 hVMre2O7eDA4I0Sc EOAcvywqikgedTJ7XTHy QXYgrA47Fp1qsMutQv6r JNSwDTN7UMCxhUKkB8Ja jA1xRxBhMZNuEYHr M1QtzOPwZOyhG967MJpo ZxC3FUAnghMwS0WlITRk hCjtKhJ4e6P6Ts2MEr75 UB74XO46tNStp8G2 yEV4U7OsWVEwylpxbeav bZS0KMDjLZWvuA81Aq8m cElcOo9gBUOnAXP8FTZs jDBlH6HuwX5qQqTc VGRjYCUxP5OijSDvIGkm N026SDqlVhZ7CLPwsxJd Q9CgVOBjvYswHuF3y6M2 Gv2UNCyvsyq2N5Qp PjwvdHI+QJ86YELwZR00 wXUizXNwu4owbEs0LcLc IGCkQHO6dWgjSEovz3Wr VWLiZ77zbVZrb1Z0 IGN (more content not included)... [facility] Consent Formson 03-12-2021 Consent Forms [id number] [email or web address] [facility] Coding Summaryon 03-09-2021 Coding Summary HTMLBase 64 PsmwbduyGTm8wDi+PGhl YWQ+CX4XXGFwL01knKLc eN2OR5jWNY8HUXUIOALF AD5ZFH4xzGL6UMqyG1Qd biAv IwjwqUPvZH71OZb1HNV9 gLsjZXehvH0ccDRjQ9f3 AsTkJP76kI40YIqgTQYi YlU4VbIognyavQCt Q3ifRfBinKRvRta+PHRh YmxlIHdpZHRoPScxMDAl RhVnrNxwHG1aNl2zQLTk LWNvbGxhcHNlOiBj x5qgMIByHWtxHR2dyFhu I8HzvUM3PAOoo7d0Wr28 dHI+ZZWlDYX2fFmvWEde y249DaYmy5zvAUB3 aEDoWTqtDXA6W09bk2X2 SEXxBNFtUXZ6zMV4rG2t xGhhmyzsG1SttHHdGsC6 YPC4eQOnhI5smVqk eacxwV9nBbt+P05HIJ1V FJPKLV6BKyw5A9VwWxcp dHI+LJ31XWLpTW14lRDb jBAfl9fzvJa1TdCy WJJtOXZ5vRcjETkrk9Ef RQLeT71zkLMdu6C9KOWt nYffiTRyBhAznRP0nQ2w AQhqbekvk3iigtwj Wzyua6tqla54yM14A16f TTrmJRMwOYA8ICXgCHXt cNduxo6jcZ2fJp9+IDxj b3jrx1suwKz0IjFf DQLqivKhqUojEAD1n1Qx Mv94M2TegLgld1XtSnf6 ni86vBUxn6G6uCO1PKww AOCrfH7nQBtbPuK7 PIDhSbSapQ19wUCaNJgb Ys1rlFkhvFpgLN7oQFPi qdfoHJIxbC0rITNskAZo pHtkXM3fBFHrxiqz d895RuTfMNK1UGYvqVAq Y1LbaN2jGiIzPSIfJGOv F2KgyHKxYHxsQ506PGsn KsK9SUUhiuBiV9Ip TPXctBmdGpM9h4O3Fu8M i9EhmabbJWG1DRagUOAh VmO4GyMyLaM2R7NyKep0 CSEvdZjeXB7fI0Ef RFYsmjxlqvjzaLT1VQLf JBRduQ17fGZmCJhsVp2u c2A4q948AKCrUJKsrU26 Mh0nfXuyFMPniYGM eE6sjgcar6pakabdByMu BVQcJBc1WUh2NXFeaNxg EbQtQJK7VmG6LDH1mGXx aG1laZcgjntruV8u Oyc+S64mtX3oVKV2DDY2 cjhkQXTuvqSbQL22PA76 X2WkBzwwaNKlpOR+PGRp siYudNvcID7mAbTi n9ptk8YrMRejB6YnHOWr OAyzDin5OPRlZYG9hSB7 yP2sLQCrYIqtq8E5vBB8 Y8CqjbPjqh3gz0oo JPJpUNbfX58pkYZzf7Z7 QKGyiPF0GUNupVjpWzTp jE13Cwu+VIHqlZtbw3Eu Ylypn8etg8rinMh3 IjMwJSIgdmFsaWduPSJ0 m5ZlDo35W28kTBkzRMXp KPXnGDOpPIVxlYshka3g sH2fIj1+PGNvbCB3 tUQ3nU2wHFZuFzG4MPma K109HfUsiUGaRqkaz2um n7jgdEa0XoKjSHDmwjXw vNzkSFH4r2IkVb37 R56wWRgjYMGdWIElJVPm BIAxyNukfb9fjI6ePi0+ UK4qb7ymyg98dN38dYY+ POEdSMD6sVmoTKfz UUEsaS5bYPoiWbG5RNVo OfEvpT99yQQbFWdxYn2d zHdcsZsaJJ9uMBPkynnp r856IdFlr7fmALIy pXHqBSysAAN4L29dx4K8 XJBiJFRjHED5xAN7iF4u bGlnbjogbGVmdDsgdmVy dBmvGYolEUbwR129 IHRvcDsnPlBhdGllbnQg HjXaDRz3J0PiEth6QAVd wEriNN1zkBOiOHvrDy2u uSkjvPtpUA3iYAQo idelt763UdHev4adRQAq gGToDVcnURQ8F31up6Z9 VXNpDPPhDLA1aEK7xO7y bGlnbjogbGVmdDsg yvEpzJmjCBfjICzkI148 IHRvcDsnPkJpcnRoIERh xNY1GP76JS44mOPio4S4 jKZ1Y3NxCWZxryfj uvzupPJ9XCWsJFEseA01 Xf6cbZnoTb1gZWNgYOQ2 KLSwySBcC1YjnC0tIfSr YERbLYDiD5AghIQt YMbuH873KZzdQeQ0ZDLa mfQrE2SkQRWseFxvEwY6 f4D8Hp4GY8F6DK80GM13 zCPya1J9nUE6I9Hv DSGnkdsokshxdIS8WAFg GQUbeD69Ct0xyKppIv7m BQAgCAL6YMUmwRKcU8Mf yB8uWfCvKNQjZATg V8BkySPuUNbqP033JQbz ZwC9DLSmqlGuH8HoYGDz vJexNtL5h9P2Pd4GIFh6 HI60RD42mEVmu4C9 qCX2W0KoCCYrjsacgvqf aYQ8DFRiNCBmjH67Cp9m rTewPw4dVYZlNJO3SYXi bJYvY4FgnO2dYfVa LFLvPEOpG7FmsAGfDCfg O803YKmaZeI8ENWuvoBl N4JcSQThlYnuLbQ8g3G4 No3MIKUwIM23BYC6 jXA6XN38CX40H1AqYhxg dGFibGU+PHRhYmxlIHdp ZHRoPScxMDAlJyBzdHls NM7xDy8eNBPnWWNy kSuhzYYsRyZkp3rnWVLq MSzaVA0eoQgyD3WeeSV8 LRNgc6o6Ho61T04wN3Yb dXA+JAIuoLA6mXU5 vH8oJdJqAdN4NGobA828 KwRczDJaIsanh3ysx0bw qMf8ZaT1LQJutsLicYpo VGS4i1LiRd09L35q IHdpZHRoPSIxNSUiIHZh xEeniu8bvP4kHg4+PGNv jMT9xNQ9tB3rTsFeKjL2 JMknQ611GxSoyDGm Otaby9ebq9jkhNy9DjFg DNXmbnDnpZosLJV6f1Dv Pt63W9YigMqzz0FwNjk9 ia91gDXwr0H5cLM5 T8GzYDPjaaiddGUsgArm DQ6wVOGhonlwPBFriF7w BPVxX3e1ZbZfReK5XBiv S3IqlmM1LMBvfOUt GOzbZRV0H30lz1N9VBKm EPVpPKD3nWM9iG1quKvm bjogbGVmdDsgdmVydGlj XPuuMSogQ085PCMn gHffZBSysK2eSLRoaVLk wKwaKS3tAYMoqbxpJgvM QkVSTElORywgTEFXUkVO T9VaXNtbmQE+PHRk BOD8vOlgQBltTNXchY2f OHNsZ8u4OsDsUaT2ZRhg N9QdGUEtfiobVb52mM8h BePhSjJ6HNgjD8Kr zdC0KGPdgIHvXStfLIJ6 A97na9K6QTWnRELbRPL0 zIR7kM3jfDcojbejrGQm dDsgdmVydGljYWwt QVbzM417TSHqeTebHbI8 NpDoOoP5ZZf0W6MoXey9 JGYrzAbcNR4beMRoYJpz Lq5jyBkuiXonNF8r LIGjejnsEFDtoA5jJSEo xBEjgNtjRF9sFPLrjybo d367CzBzZTG7XTYasJLc D9AupO3cMnLnTHTj EWKuR6WpcPAlMVigS755 OKpoLxA2HTBvffKkI4Fy RXQthAulVbU5z6G6Nh00 MiBZZWFyczwvdGQ+ TLOjBDR7lPybAHweQSFa dY0dWESiJ4v1DnYqJhF9 TXlsJ7UsJYLddhumYt14 tR9bPuJsDuT2ITys I4BephL3FVYhtYWiFOiv UVP8X34lj5D2FUGsLACz QIV4yCF3iW1muHfwimam bGVmdDsgdmVydGlj PLubNVpeV244RHMnvJac Lp7ELBA7Y8PmTzh9IZJq nCcwBN9yvSOuLMekSq8h tJymkOweWN2lIDGc gvrqEWYyaZ8sYMPxdEBh yOtgCV9fXCCmhhxnr356 LdMkCWF1ETVrtKMjV3Sj yA7nWuZnLNVsYHQp A8XpuMExCRfaX712YJae BgJ5TJWgvsRjL0RlRKHq tBkjYyM5n2Q7Lt0ECcBs cnZhdGlvbjwvdGQ+ VE92ut77K7OmXznxOgt1 IKSlROF5hGX4sR7lYYVx UNvfh5U3wIN4H2RkehSc tv8ke1ksQHSeLEtf Z88ijCAku4B4PKNpzRU3 PRTnxKlfEgJlyJ84Mzr+ LLNowIwkw8LpQbqzq5le l0agvRc4LaEdRJXp lhQavWbwMYJ0j8ZnMr95 M31iEGohWEWcBWZeCUQk STWdbRhiws0wdV6vVu0+ BNLtcKP6kDW4mK3c DoPxPfW2YHoiW160IiMn iLPnRvxlq2gsk4kqwGi9 IjIwJSIgdmFsaWduPSJ0 w0VsPr84L0TjxAgn k6IjOlq9fu70xJJmy0U6 aFI0I5UnEFAppxeooAAv gKhxGI2sCLHflmzaELPi gJ6tCBWyT5f0WiTu LfQ1EUlgW1DfarK3TLPq aCFoKHGdhQGGnM7zxyjt c9bvsujoDaQxWHIuPQt0 SLp0KHQinXfbBzMz VKO1EhH8HCH1wGVptM3o qVjewpcttC6oIkt+UGh5 x5ydmXLjYX3azNO0FJ08 XC89qMYhu4P3hMQ2 C3GxYIAyiujoixuatLA1 JCFgVPOqzT40Xn3fbVul Be6qRLUzFXC5ACUewNXh V0VkuB2xTgAkOFMj JFQmJ0BscIFkTNdnX284 QHikTiR3BGQkzdHhE6Yl IVVphYwfLaI2y9R3Kw9V GD44LI36TR98vKCw c3V2hVZ9E8DnOMFdwcdh ntzppJY9QYJiQIAulF73 Zd1sxRrhOs6kBTGvYUD6 TBOxqTXbM2PozT2b DqDmRFJxIWNzG9VwdIMg ICpqU631PXliOmJ9MNDk hqZxO7DrTBEgmErhQmK3 n8J6Np8FPq06WA58 DJ70pIAkb7N6gUO9T8Db SQHwlfiokfrwjVU6WCBi NOOvkX76Vz1laZnuJa1e INJpRTW6DIPfaJYb N0RbwV3bPzBgDWEuUEJc M2KekRXcLXdxG950RQgr XeF7ZVDnkoPtL2KxKOPx yPmpWaT6o0U8Az3Z GTmsyws5Y2VmDawndPI+ RD40AXNhQV76vMAhyJKq b8lrbTp0QzRhOBZuTEK6 tVymSMjfb3IbONRo Y29 (more content not included)... [facility] Coding Summaryon 03-08-2021 Coding Summary HTMLBase 64 MceurtjcZXs8oGm+PGhl YWQ+AV7EBCWhE20qcPQd vJ8ZY0aHYE9AQOEDKAXX HP1NBT3jmDR9DGjtW8Ef biAv FzetmMLnAI83HYk1HBN1 oFcdSSkqtZ1agSFaR2e5 AgErPF46zG73BRwcSEQk EsQ4YeFcznktnDEf O7sfGiPfyCKaPfr+PHRh YmxlIHdpZHRoPScxMDAl UmXbmGatPA3jLr8hJTBe LWNvbGxhcHNlOiBj r7nrNKBwZIwtFD3loMhp V7WrmSL8RIYci0y2Hq19 dHI+BHOmQIM5vPzzSJws z076MuApy7hyBDG4 xYNcBYbhPXH1X50pt9A4 GFZyOBRfCKX7cIV7lX2z gTzrwsrkA1FunDTiOaN9 IXG6uQByfL2prBhb yvjvbM3zAls+X16JOY8P CXCXMP8TYmu8Y5AjZvkt dHI+GG05ADFhCN35bUCa yFDht6sjoTu8KgBf CPUbNRJ8hJjkAXexe1Sl XTLqU30xqHUpm3I5OOWd yOnpiQTnTlJheCZ7mE6e XHuqzgchr6lcwzgb Jggom1vucu21tL20K44y IIimDPFoXOO3XEAlACCz xMqboi9slX0qBl9+IDxj y1gxl0bwbUn0UbWi QBWaoyLwbEheJCY8z0Ut Dk46B5AypAdff9OzGwg7 fz05hFMsf9X1hWJ9RRxa PKIqbN2kBKppSaV8 AVAhGjSrlT66bBFiGNeu Mx2bqLpdvOoiQL3iXOCd upecJACseA5gWHVjkAId tVzxUM6qKHOewbmt e871EhImSCH5WWKdnVKw J1ZkyP0pCfLmMVBzUFYy V7WruEOnBRolW514LUlk OoZ1XYZvmaApT1Fa URDaqLvlTfS7p3O4Nc0Y i0PcxtxnKGR4UOtzYYFd CjZ8UjUmCkM7U9SgKau2 RKYweCfnIN6zG8Zl WHHaurgrtjfxeYH4DXTp OABjeT57cLOyTNdaBq1v b8W1i196NABuRHTsuN86 Px5tmTcrOPHnsKZM xS9vwurwg7ighyzcNtSb IPSzDJy7HDi4XFZwyWex VeKpUVD5DuM0RJG6oQLj xZ7wnMkgzgxtsJ9r Oyc+V89otC2mEDU3FHD7 zesmAHYhchUhLP09MR49 I7TlWyssqPHbsQU+PGRp vaTedDhhPI6ySjWy l0kxl2KtVOufO9FvQBXp FEjsQho0BFTbODX6wAV8 zV0fRWWzMYtev5Z5gFT7 T7HpzuVvzq7su5wa EXCcCGjkW04lbHQvz5T3 DLJunKT5SIJznYnkLzSg eL50Qbw+WSAjmUnxe8Pc Yoodo1cwn9tceLz1 IjMwJSIgdmFsaWduPSJ0 u2DyEw75G12lAKuxQXDh RVSqQVJbTTWddRvini1g yR0nXn2+PGNvbCB3 aRT4sZ6rGAWwAjM5ZHfd A148JvRvcGFrWcoyw0gh o3ygnEc4CiQeZOPhtvYc tUleIQW9c0KbAi74 N82bFFwnOOPlABIxWARt VZGjrQhoml0xjP5tMw0+ NZ0fd2gbov56yK28sEW+ ZKYkSFR4oElqIEgt EDYmoG4nDTmrWnU9SYYg XsStdZ29yNJpKCoaMj5e qDielVarUZ8pUZFstrhi v273XmCbr5frIKKi iKMhNKbsLWV1V35ds3S0 SKVfPPFiFPY0iSJ3bP4x bGlnbjogbGVmdDsgdmVy jRunDHpmOZadX316 IHRvcDsnPlBhdGllbnQg EkSoEXq3N9IhJmg6PBSs qJwlPM9uyTQnOXvrDq3c lNynvBmaIX5wCHEo hfgpp109RxEwa9qhLYCk tOLfUEtaCWE0K24yo3A4 UVYhFGEkSPS0eFC2hS1p bGlnbjogbGVmdDsg feKqzChlRJjkXIlxQ483 IHRvcDsnPkJpcnRoIERh mBB2TZ72QZ74hPVyq0T1 tSP6X7GaZRNxcaiv eaxunDZ8QQBpWSMomM62 Xh8uaMpnUy6vFTIsVKI6 WYEbaMIzG0VxeE2cLvYw GFLyVMRgJ7UffTFu TFjlE543MRnrEnO1HPGz duSgR7HzCNCgtOdgAwU0 g3L3Ls0UR5N0ZW90HQ16 pVEjb0I1uBH4E7Qq DEOrbsxxxqkytUS3YQDo YOVvuL32Ap5xfTxfRv5x KJGxMWG7SOYysCBfY4Ol zZ6iJeXbZLLhAOGg H6NfmUBzYBacP529RErz ElS8KDVxexRtG1NjBEIk wZqyEnB2t3Y5Nq8EFWq4 XM66XK61aLSsl2K6 mNM0W6IkWOFezxltievv jDI9NWOnZQNsbQ76Cy1p oRuvIs5xOXIwOOE1HINy hGScX3ObzN0jGsBq AQCrKMRnY6QzuIQnHUnj S578XGnkIyX3JJIkfqGg Y7RhVBLnbAfnKlX4x9O0 Ht8LRESrYK36RIP3 oUY7UX13MJ58B1HqEset dGFibGU+PHRhYmxlIHdp ZHRoPScxMDAlJyBzdHls EM0pJa1xHOExJWIj wXxqxQHiJmLak2jnKUHz ZIgdSW9xuXfnB1WwdGP7 LBNfr1i5Yp15O23aC0Hu dXA+OVFvrNG4eQV3 xI4oDySrTbN0FDyhB394 HfTjgCXrZkgrr4hdy4hh uPj3RaT9YHElaoGfuAxl OYI2m6CwEk13N41f IHdpZHRoPSIxNSUiIHZh hKfsqk6ueQ0qPl7+PGNv lVC7mTX8kJ5nGlPtWjI2 OEruI007GqJngVXs Xlduc0jdz2zfyLi0RrZt UZYeexMrgIyjTLV5h1Qt Kh29P5HelPvsu9FtCmq2 ih64xXObb9W1lWN4 L2MxSZFbtyexyATxlRtc JO9fBVOcgabuAIDafX3h QBEjY2g1TsQgIbX7WJtl A5YhojA0DBCidMQu DWnxQLS7V26jq0I4RORv IEDyEQH4xIG0wP0tsDcj bjogbGVmdDsgdmVydGlj AXmgJAigD296XUWs fKjvTQLcsE2rXKIsyUGn jVufCV9iSTMpyiyvEadO QkVSTElORywgTEFXUkVO P9BrTTntiNY+PHRk VFA0gImqCNlvNWWatQ7j GNHmL4s3BrXlNdQ3RSsm W5RtXGQztxilOv51sX6y HhTtKvN2ULkvN1Gd tlK6HGIwbDSrRMpbSJQ9 P29ng6G3RNEbIPQlWUJ4 hFJ1eG8zxNkybbcgpFWe dDsgdmVydGljYWwt YHqsG805DEItnDsyDdR9 WlXvNtY1IEs3D0OsRxt4 SCFrqDtcOX2whRRgFKja Lc0huGenqXpqME9h UENugaksGKHycV3xGIMy yJXggPstTO5aECJrbqsq q164DkLlERC1OSVqfMNn A0FfhZ7mEsHeQTXt PGAoQ3HwdFSeNNvuZ781 REplUfB0MALpudTgV0Eu ADIhuJmpKvK3c9H8Pr75 MiBZZWFyczwvdGQ+ FKZwIFO2aDznRHknQSTb sS2rUYLpQ8y0BcCnGfL0 ILtkU1BbQYZrvrnlNl32 yM0iNvKmQgR5UHdz Q1EiihH5GHFpzHFsMVpi QUL0U42kz1V2RGHfWLWi IJG4tRX6wB1waJzvkxlo bGVmdDsgdmVydGlj UMksQZgeF400QBTmcGhc Gs6IIMG5J4JsJqn3SJNp eKjqHK6foAUnCUvnHf2o rHiguZafJE0pUMLk zfdyZPJbiD8qVDAkfXUe eBtbTW4iNOLhmdhtf272 JnGkKCY0XUAkwULjN7Yf tH4bHbSwECNvQCUp D0BbuGSuRKftD714VXlj MbO4OROxshWlN7DuYQHm bHljHlU2g1G6Nv0RSQcu dGQ+NT81ns03Y3Do JzigVeu7DTGrPFL0mKE1 oJ1lGNSfYNyyb0C0cHX9 B9AtqrFtie1fx3cmFEMu NDjsY91tzGRdu8F5 BIGdaMU5TDPvsMplOmQz wE32Pvj+JQBqzCaay0Va Okiux6mua0nyrBm4ExYz JSIgdmFsaWduPSJ0 e2JoQh05I54cRUteZKYa OWFmFOUoHSUwpLggtu9w tM8tKf8+FXLehIE8sIN4 vQ4tOqCpRwK1RPcq Q357MxTciKLzTykol2qv k0iwyGm7MuMkDQCrtoLm eVfvTMI9a5ZbIo96I4La zVmma9MtJbe5es42 nRPcc3S3cLX1F5MdTSPt dgguhRBemBmvRG9rBSVb hrgvFEVfeE5zAEQdN4l7 FbLeHvJ1DSthB9Ww foU0ZTMmzRRkQLHbkXJR kP4vwtwht3iaygtrJkHs QMJmSMy0XYn8MQDcoJjk ZjApVHQ9AxI4BCV6 sWJpwA2vcProkrabiE5r Oyc+OJz8x3bezTErTG9c eIU0AC49IS04mKFoi5T8 mVY2P2GtHBNwopuj azdneOK7RNLaLQMvqJ84 Ei6yhUdtBd0eMDPvFKW6 SCIorZSwP7GcmB4tRwAd FIUiACZnK0ZdyATj CRxrI424ACodRpP9YFCy sxSqF5IuMLZiwOziDfR2 a4Y1Bw5YGI06TV86VZ37 kHXwa3Y1nDX6F4Ad EDBmuzwbfjhdpHJ6VZBj HCIrtA03Qv0vmKsvWl3t OKKwAAX0AGIlrCAeS6Xb lK1dGhPkHOOeESAq V6WilHOnGYnuL068JIvs JzL9NFEwahMpK2MdCSHs iMsbIsM0r4X8Vd5MFq60 CT90PS42rCQho6P3 iPM4D6CxZGYekhbhuwuw cVH2MSKwHVGaxJ36Lu9e jEywEz3uXCKjDOC6VAFf pMGuI4VhpX0tZgHa GODqCGOeX7WglTGdYDtd T524QVnaKnE2TTRvbeZn I4FyBIAwjVkkOxX4a8Z3 Nh8HFVsjanx0S4Mk PjwvdHI+QA83ABQxNY98 cUOpvVDrj1cfgEv6JdZr JLBvHJB6cZiwXLrnp7Uu CSClK52fuFQwm6C8 IGN (more content not included)... [facility] Consent Formson 03-04-2021 Consent Forms [id number] #[email or web address] [facility] Electronic Messagingon 03-04 Electronic Messaging --- --- --- --- --- --- --- --- --- From: Direct[employer] ([email or web address]), Directtest To: ZAINA WINTERS Sent: 03/04/21 10:12:15 AM EST Subject: Discharge Summary Ready to View A summary regarding your recent visit is available in the Documents section of your Health Record. [facility] MAGR Intraoperative Recordon 03-04-2021 MAGR Intraoperative Record MAGR Intra-Op Record Summary Primary Physician: DAVID AWAD Finalized Date/Time: 03/04/21 08:14:12 Pt. Name: ZAINA WINTERS.O.B./Sex: 1950 MALE Med Rec #: [id number] Physician: DAVID AWAD Financial #: [id number] Pt. Type: O Room/Bed: [facility] Admit/Disch: 03/02/21 05:52:00 - 03/03/21 14:09:00 [...] Role Performed Surgeon - Primary Anesthesiologist of Line Pilot Record Time In 03/02/21 08:00:00 03/02/21 08:00:00 03/02/21 08:00:00 Time Out 03/02/21 12:09:00 03/02/21 12:09:00 03/02/21 12:09:00 Procedure Arthroplasty Knee Arthroplasty Knee Arthroplasty Knee Total(Left) Total(Left) Total(Left) Last Modified By: Jo-Ann Schwab RN, Barbara RN Long, Barbara RN 03/02/21 12:19:51 03/02/21 12:19:51 03/02/21 12:19:51 Entry 4 Entry 5 Entry 6 Case Attendee Marjorie Esteves SOUS [employer] KITCHEN MANAGER, Sue Horner SOUS CHEF KITCHEN MANAGER Role Performed Scrub Personnel Cardiothoracic Anesthesia Technician Cardiothoracic Anesthesia Technician Time In 03/02/21 08:00:00 03/02/21 08:00:00 03/02/21 [...] Modified By: Zaheer (more content not included)... [facility] Outside Recordson 03-04-2021 Outside Records [id number] #[email or web address] [facility] Provider Orderson 03-04-2021 Provider Orders [id number] [facility] Tele[facility] Strips [id number] #[email or web address] [facility] .Auto Diff 1on 03-03-2021 Auto [place] % 10 % Normal -12 [facility] Comment on above: Performed By: #### 1 [id number], [id number] ####[facility] [place] (DEFAULT)[address] [place] [address] Baso Abs# 0.0 x10 Normal 0.0-0.2 [facility] Comment on above: Performed By: #### 1 [id number], [id number], [id number], [id number], [id number] ####[facility] [place] (DEFAULT)[address] [place] [address] Basophils/100 WBC (Bld) 0.0 % Low 0.2-2.0 [facility] Comment on above: Performed By: #### 1 [id number], [id number], [id number], [id number], [id number] ####[facility] [place] (DEFAULT)[address] [place] [address]5610 Eos Abs# 0.0 x10 Normal 0.0-0.4 [facility] Comment on above: Performed By: #### 1 [id number], [id number], [id number], [id number], [id number] ####[facility] [place] (DEFAULT)[address] [place] [address] 73288 Eosinophils/100 WBC (Bld) 0.0 % Low 0.9-4.0 [facility] Comment on above: Performed By: #### 1 [id number], [id number], [id number], [id number], [id number] ####[facility] [place] (DEFAULT)[address] [place] [address] Lymph Abs# 1.9 x10 Normal 1.3-2.9 [facility] Comment on above: Performed By: #### 1 [id number], 31369784, 9619466983, 8192065062, 6363794, 9777534475 ####[facility] [place] (DEFAULT)[address] [place] [address] Lymphocytes/100 WBC (Bld) 10 % Low 14-48 [facility] Comment on above: Performed By: #### 1 [id number], 63115727, 8214549267, 8253200272, 9817041, 7305420800 ####[facility] [place] (DEFAULT)[address] [place] [address] [place] Abs# 1.9 x10 High 0.0-0.8 [facility] Comment on above: Performed By: #### 1 [id number], 19983294, 1401044652, 3661014388, 9738413, 9568938713 ####[facility] [place] (DEFAULT)[address] [place] [address] Neut Abs# 16.2 x10 High 1.5-9.2 [facility] Comment on above: Performed By: #### 1 [id number], 43752959, 7171327353, 6918613141, 2756995, 1831997684 ####[facility] [place] (DEFAULT)[address] [place] [address]252 Neutrophils/100 WBC (Bld) 81 % Normal 44-88 [facility] Comment on above: Performed By: #### 1 [id number], 31528305, 1645561601, 0265017337, 5086852, 8490996814 ####[facility] [place] (DEFAULT)[address] [place] [address] CBC w/ Auto Diffon 2 Erythrocyte distribution width (RBC) [Ratio] 13.5 % Normal 11.5-15.0 [facility] Comment on above: Performed By: #### 1 [id number], 99244855, 5795897183, 3853490733, 3764667, 8175778618 ####[facility] [place] (DEFAULT)[address] [place] [address] Hematocrit (Bld) [Volume fraction] 40.5 % Normal 34.8-51.9 [facility] Comment on above: Performed By: #### 1 [id number], 19137508, 4738290943, 1416358592, 1820656, 3667371787 ####[facility] [place] (DEFAULT)[address] [place] [address] Hemoglobin (Bld) [Mass/Vol] 12.8 g/dL Normal 11.8-17.7 [facility] Comment on above: Performed By: #### 1 [id number], 88499044, 8240526443, 1054760261, 4098914, 4937898429 ####[facility] [place] (DEFAULT)[address] [place] [address] Instr WBC 20.1 x10 Invalid Interpretation Code [facility] Comment on above: Performed By: #### 1 [id number], 75915509, 8900148701, 0633656744, 9835905, 8904755219 ####[facility] [place] (DEFAULT)[address] [place] [address] Man Diff? Auto Normal [facility] Comment on above: Performed By: #### 1 [id number], 19342070, 0967311851, 2182160623, 0145194, 1224179964 ####[facility] [place] (DEFAULT)[address] [place] [address] 67641 MCH (RBC) [Entitic mass] 30 pg Normal 24-34 [facility] Comment on above: Performed By: #### 1 [id number], 43968210, 5650453307, 3024169733, 4177317, 9038656371 ####[facility] [place] (DEFAULT)[address] [place] [address] MCHC (RBC) [Mass/Vol] 32 g/dL Normal 26-37 [facility] Comment on above: Performed By: #### 1 [id number], 49504251, 4671853991, 5913574129, 7893728, 6584002095 ####[facility] [place] (DEFAULT)[address] [place] [address] 87977 MCV (RBC) [Entitic vol] 96 fL Normal 81-100 [facility] Comment on above: Performed By: #### 1 [id number], 87913061, 3785549242, 6837864550, 3293007, 8291087690 ####[facility] [place] (DEFAULT)[address] [place] [address] 79028 Platelet 275 x10 Normal 138-427 [facility] Comment on above: Performed By: #### 1 [id number], 31797302, 9041942971, 7499949769, 1677430, 4184249048 ####[facility] [place] (DEFAULT)[address] [place] [address] 78101 Platelet mean volume (Bld) [Entitic vol] 10.3 fL High 6.3-10.2 [facility] Comment on above: Performed By: #### 1 [id number], 71372069, 4392524286, 2664814821, 2505358, 9054600249 ####[facility] [place] (DEFAULT)[address] [place] [address] 17647 RBC 4.24 x10 Normal 3.70-5.30 [facility] Comment on above: Performed By: #### 1 [id number], 20589536, 2441568555, 3365167395, 8219775, 3959507935 ####[facility] [place] (DEFAULT)[address] [place] [address] 26673 WBC 20.1 x10 High 3.5-10.5 [facility] Comment on above: Result Comment: Slid e Reviewed Performed By: #### 1 [id number], 61045312, 2198871272, 4373085475, 5038433, 1844597752 ####[facility] [place] (DEFAULT)[address] [place] [address] 91213 Electrolyte Panel Standardon 03-03-2021 Anion gap [Moles/Vol] 17.0 mmol/L Normal 5.0-19.0 [facility] Comment on above: Performed By: #### 1 215843078, 99440406, 6815762794, 4752239963, 0634262, 1559040718 ####[facility] [place] (DEFAULT)[address] [place] [address] 65615 Chloride [Moles/Vol] 97 mmol/L Low 101-111 [facility] Comment on above: Performed By: #### 1 015088010, 18135653, 7957177946, 4542011484, 3372593, 6638727526 ####[facility] [place] (DEFAULT)[address] [place] [address] 14841 CO2 [Moles/Vol] 26 mmol/L Normal 21-32 [facility] Comment on above: Performed By: #### 1 855103602, 46250007, 9186062221, 2889598787, 4512158, 1315005268 ####[facility] [place] (DEFAULT)[address] [place] [address] 12265 Potassium [Moles/Vol] 3.9 mmol/L Normal 3.6-5.1 [facility] Comment on above: Performed By: #### 1 435695021, 54235790, 5391949795, 8919000887, 4662804, 2887899263 ####[facility] [place] (DEFAULT)[address] [place] [address] 13146 Sodium [Moles/Vol] 136.0 mmol/L Normal 136.0-144.0 [facility] Comment on above: Performed By: #### 1 511376092, 95075160, 1159516107, 3382105427, 2900407, 5126776104 ####[facility] [place] (DEFAULT)[address] [place] [address] 51051 Extra Greenon 03-03-2021 Tube Collected Yes Invalid Interpretation Code [facility] Comment on above: Performed By: #### 1 [id number], 46345495, 3153200255, 3462303934, 5387024, 1195664255 ####[facility] [place] (DEFAULT)[address] [place] [address] 10404 Inpatient Patient Summaryon 03-03-2021 Inpatient Patient Summary [address] [address] Patient Discharge Instructions Name: ZAINA WINTERS : 1950 Patient Address: [address] [place] [address] Primary Care Provider: Name: Jeannine Hurley After you are discharged if you find you have any questions, please, call [phone] ext [phone] to speak to a nurse. Discharge Diagnosis: [...] alcohol and/or drug addiction problems; contact the [facility] 05/09 Crisis Hotline -Xksb 2CDZC lg 623876. If you received any narcotics, sedation, or [...] business decisions or sign any legal documents [facility] would like to thank you for allowing us to assist you with your healthcare needs. The following includes patient education materials and information regarding your injury/illness. JHONKERVINASHTYN ZAINA Morales has been given the following list of follow-up instructions, prescriptions, and patient education materials: Follow-up Instructions With: Address: When: Marina Redd [address] [place] [address], [address] [place] [address] Business (1) 03/15/2021 10:30 AM With: Address: When: Jeannine Evangelista [address] [place] [address] Business (1) Medications During the course [...] mg oral (more content not included)... [facility] Postoperative Record [facility]R Phase II Record Summary Primary Physician: DAVID AWAD Finalized Date/Time: 03/03/21 08:37:51 Pt. Name: JHONKERVINASHTYNZAINA./Sex: 1950 MALE Med Rec #: [id number] Physician: DAVID AWAD Financial #: [id number] Pt. Type: O Room/Bed: [facility]/ Admit/Disch: 03/02/21 05:52:00 - Institution: Phase [...] Signed By: Vianca Celaya RN 03/03/21 08:37 [facility] Nutrition Noteon 03-03-2021 Nutrition Note Pt admitted for scheduled Lt total knee surgery. Diet advanced to 3000kcal DM, along w/ usual post op vitamins/minerals and oral nutritional supplements; adjusted by check writer to 2000kcal to better meet nutritional needs without overcompensating. Labs reviewed, BS 138-177mg/dl ideal post op. Pt at high nutrition risk r/t age greater than 65y, however, no immediate nutrition concerns at this time. Will monitor for changes. [facility] Anesthesia Noteon 03-02-2021 Anesthesia Note Patient: ZAINA [...] on: 03/02/2021 12:40 EST] Dre Santos DO [facility] Anesthesia Note Patient: ZAINA WINTERS Age: [...] = 20 mL, 100 mL/hr, IV Piggyback, Chef Manager tranexamic acid: 1,000 mg = 100 mL, 300 mL/hr, IV Piggyback, Chef Manager tranexamic acid: 1,000 mg = 100 mL, 300 mL/hr, IV Piggyback, Chef Manager Documented Medications Documented Eliquis 5 mg oral [...] All Problems Atrial fibrillation / SNOMED CT 43888750 / Confirmed COVID-19 / SNOMED CT 1140213940 / Confirmed Diabetes / SNOMED CT 053488876 / Confirmed FH: hypertension / SNOMED CT 875940509 / Confirmed 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 Comments: 02/04/2021 10:08 Oliva Van RN surgery [...] review ECG interpretation: Normal sinus rhythm. Plan [employer]#(A SA) physical status classification: [...] EST] Aiden Santos (more content not included)... [facility] Intra-Op Record Summary Primary Physician: Finalized Date/Time: 03/02/21 08:23:07 Pt. Name: ZAINA WINTERS D.O.B./Sex: 1950 MALE Med Rec #: [id number] Physician: DAVID AWAD Financial #: [id number] Pt. Type: D Room/Bed: / Admit/Disch: 03/02/21 [...] Draper, Lora RN Role Performed Anesthesiologist of Line Pilot Line Pilot Record Time In 03/02/21 07:33:00 03/02/21 07:33:00 [...] Airway Device Na (more content not included)... [facility] MAGR PACU Record MAGR PACU Record Summary Primary Physician: DAVID AWAD Finalized Date/Time: 03/02/21 13:11:26 Pt. Name: ZAINA WINTERS./Sex: 1950 MALE Med Rec #: [id number] Physician: DAVID AWAD Financial #: [id number] Pt. Type: D Room/Bed: [facility]/1 Admit/Disch: 03/02/21 05:52:00 - Institution: PACU Case Times MAGR Entry 1 In PACU I 03/02/21 12:07:00 Discharge from PACU 03/02/21 12:58:00 I Last Modified By: Rosy Gaxiola RN 03/02/21 12:58:08 General Comments: Pt stable. VS stable. Pain level 8/10. Report given to LESLEY Velásquez at bedside. Finalized By: Rosy Gaxiola RN Document Signatures Signed By: Rosy Gaxiola RN 03/02/21 13:11 [facility]ordon 0 03-02-2021 [facility] Preoperative Record MAGR Pre-Op Record Summary Primary Physician: DAVID AWAD Finalized Date/Time: 03/02/21 08:24:03 Pt. Name: ZAINA WINTERS/Sex: 1950 MALE Med Rec #: [id number] Physician: DAVID AWAD Financial #: [id number] Pt. Type: D Room/Bed: / Admit/Disch: 03/02/21 [...] By: Rita Molina RN 03/02/21 08:24 Normal [facility] POCT Glucose Levelon 022 Glucose [Mass/Vol] 177 mg/dL High 74118 [facility] Comment on above: Performed By: #### 4 [id number] #### [facility] (DEFAULT) [address] [place] [address] Glucose [Mass/Vol] 138 mg/dL High [address] [place] [address] Comment on above: Performed By: #### 4 [id number] ####[facility] (DEFAULT)[address] [place] [address] Patient Handouton 03-02-2021 Patient Handout POST OPERATIVE TOTAL KNEE/HIP DISCHARGE INTRUCTIONS SURGEONS WRITTEN INSTRUCTIONS: Walk with walker; bear weight to tolerance on operative extremity Elevate extremity 1 hour 3 times/day to control pain and swelling and apply cyrocuff Range of motion to ankle 10 times/hour Range of motion to knee hourly Change dressing daily. Reapply silver dressing for next four days then discontinue Cali hose (compression stockings) for 6 weeks Physical [...] #8 follow up in office with physician psych assistant Justo Redd as scheduled #9 NOMS [...] the nearest hospital's emergency services department. Normal [facility] XR Knee One or Two Views [...] MD 03/02/21 1:56 pm Technologist: Evelia ESCOBAR [facility] 2019 Novel Coronavirus (CoVI D-19), JULISSA LCon 03-01-2021 SARS-CoV-2 (COVID-19) RNA JULISSA+probe Ql (Unsp spec) Not detected Invalid Interpretation Code Not Detected [facility] Comment on above: Order Comment: [id number] Result Comment: This nucleic acid amplification test was developed and its performance characteristics determined by [employer]. Nucleic acid amplification tests include RT- PCR [...] detected) result in this assay. Performed At: [facility] [id number] Zay Landa PhD Ph:[phone] Performed By: #### 1 [id number] #### [facility] (DEFAULT) [address] [place] [address] Progress Note - Nurseon 02-13 Progress Note - Nurse Pre-op call for 03-02-2021 surgery made- patient informed of arrival time of 0600 tomorrow ,NPO after midnight except for any medication that he was instructed to take in morning, hibiclens shower x2-patient with understanding. [Electronically Signed on: 03/01/2021 09:42 EST] Rita Molina RN [Verified on: 03/01/2021 09:42 EST] Rita Molina RN [facility] Progress Note - Nurseon - Progress Note - Nurse PAT review done per Dr. Mccauley, no orders received. [Electronically Signed on: 02/08/2021 10:37 EST] Oliva Rabago RN [Verified on: 02/08/2021 10:37 EST] Oliva Rabago RN Normal [facility] .Auto Diff 02-04-2021 Auto [place] % 10 % Normal 02-24 [facility] Comment on above: Performed By: #### 1 [id number], [id number], [id number] ####[facility] (DEFAULT)[address] [place] [address] Baso Abs# 0.0 x10 Normal 0.0-0.2 [facility] Comment on above: Performed By: #### 1 [id number], [id number], [id number] ####[facility] (DEFAULT)[address] [place] [address] 48775 Basophils/100 WBC (Bld) 0.3 % Normal 0.2-2.0 [facility] Comment on above: Performed By: #### 1 [id number], [id number], [id number] ####[facility] (DEFAULT)[address] [place] [address]1862 Eos Abs# 0.1 x10 Normal 0.0-0.4 [facility] Comment on above: Performed By: #### 1 [id number], [id number], [id number] ####[facility] (DEFAULT)[address] [place] [address]155 Eosinophils/100 WBC (Bld) 1.1 % Normal 0.9-4.0 [facility] Comment on above: Performed By: #### 1 [id number], [id number], [id number] ####[facility] (DEFAULT)[address] [place] [address]333 Lymph Abs# 2.0 x10 Normal 1.3-2.9 [facility] Comment on above: Performed By: #### 1 [id number], [id number], [id number] ####[facility] (DEFAULT)[address] [place] [address] 00233 Lymphocytes/100 WBC (Bld) 27 % Normal 14-48 [facility] Comment on above: Performed By: #### 1 [id number], [id number], [id number] ####[facility] (DEFAULT)[address] [place] [address] [place] Abs# 0.7 x10 Normal 0.0-0.8 [facility] Comment on above: Performed By: #### 1 [id number], [id number], [id number] ####[facility] (DEFAULT)[address] [place] [address] Neut Abs# 4.5 x10 Normal 1.5-9.2 [facility] Comment on above: Performed By: #### 1 [id number], [id number], [id number] ####[facility] (DEFAULT)[address] [place] [address] 68896 Neutrophils/100 WBC (Bld) 62 % Normal 44-88 [facility] Comment on above: Performed By: #### 1 [id number], [id number], [id number] ####[facility] (DEFAULT)[address] [place] [address] Standard 02-04-2021 eGFR Non AA >60 Invalid Interpretation Code [facility] Comment on above: Performed By: #### 1 [id number], [id number], [id number] ####[facility] (DEFAULT)[address] [place] [address] eGFR AA >60 Invalid Interpretation Code [facility] Comment on above: Result Comment: Snack Bar Attendant korina Kidney disease could be indicated at eGFRs of less than 60 ml/min/1.73m2. Kidney Failure is indicated at less than 15 ml/min/1.73m2 Performed By: #### 1 [id number], [id number], [id number] ####[facility] (DEFAULT)[address] [place] [address] 99083 Anion gap [Moles/Vol] 14.0 mmol/L Normal 5.0-19.0 [facility] Comment on above: Performed By: #### 1 [id number], [id number], [id number] ####[facility] (DEFAULT)[address] [place] [address]20 Calcium [Mass/Vol] 9.5 mg/dL Normal 8.9-10.3 [facility] Comment on above: Performed By: #### 1 [id number], [id number], [id number] ####[facility] (DEFAULT)[address] [place] [address] 72362 Chloride [Moles/Vol] 99 mmol/L Low 101-111 [facility] Comment on above: Performed By: #### 1 [id number], [id number], [id number] ####[facility] (DEFAULT)[address] [place] [address] 97518 CO2 [Moles/Vol] 28 mmol/L Normal 21-32 [facility] Comment on above: Performed By: #### 1 [id number], [id number], [id number] ####[facility] (DEFAULT)[address] [place] [address] 84184 Creatinine [Mass/Vol] 0.89 mg/dL Low 0.90-1.30 [facility] Comment on above: Performed By: #### 1 [id number], [id number], [id number] ####[facility] (DEFAULT)[address] [place] [address] 43561 Glucose [Mass/Vol] 135.0 mg/dL High 74.0-118.0 [facility] Comment on above: Performed By: #### 1 [id number], [id number], [id number] ####[facility] (DEFAULT)[address] [place] [address] 21788 Osmolality 278 mOsm/L Invalid Interpretation Code [facility] Comment on above: Performed By: #### 1 [id number], [id number], [id number] ####[facility] (DEFAULT)[address] [place] [address] 68982 Potassium [Moles/Vol] 4.1 mmol/L Normal 3.6-5.1 [facility] Comment on above: Performed By: #### 1 [id number], [id number], 5299520 ####[facility] (DEFAULT)[address] [place] [address] 01579 Sodium [Moles/Vol] 137.0 mmol/L Normal 136.0-144.0 [facility] Comment on above: Performed By: #### 1 [id number], 94584704, [id number] ####[facility] (DEFAULT)[address] [place] [address] 06927 Urea nitrogen [Mass/Vol] 19 mg/dL Normal 8-26 [facility] Comment on above: Performed By: #### 1 [id number], [id number], 5295655 ####[facility] (DEFAULT)[address] [place] [address] Urea nitrogen/Creatinine [Mass ratio] 21.0 mg/mg High 4.6-16.2 [facility] Comment on above: Performed By: #### 1 [id number], [id number], 5563722 ####[facility] (DEFAULT)[address] [place] [address] CBC w/ Auto Diffon Erythrocyte distribution width (RBC) [Ratio] 13.4 % Normal 11.5-15.0 [facility] Comment on above: Performed By: #### 1 [id number], [id number], 1044091 ####[facility] (DEFAULT)[address] [place] [address]22 Hematocrit (Bld) [Volume fraction] 48.0 % Normal 34.8-51.9 [facility] Comment on above: Performed By: #### 1 [id number], [id number], 5451739 ####[facility] (DEFAULT)[address] [place] [address] 60629 Hemoglobin (Bld) [Mass/Vol] 15.5 g/dL Normal 11.8-17.7 [facility] Comment on above: Performed By: #### 1 [id number], [id number], 2589801 ####[facility] (DEFAULT)[address] [place] [address] Instr WBC 7.3 x10 Invalid Interpretation Code [facility] Comment on above: Performed By: #### 1 [id number], [id number], 8550025 ####[facility] (DEFAULT)[address] [place] [address] 00269 Man Diff? Auto Normal [facility] Comment on above: Performed By: #### 1 [id number], [id number], 6621500 ####[facility] (DEFAULT)[address] [place] [address] 10560 MCH (RBC) [Entitic mass] 30 pg Normal 24-34 [facility] Comment on above: Performed By: #### 1 [id number], [id number], 8641256 ####[facility] (DEFAULT)[address] [place] [address] 98416 MCHC (RBC) [Mass/Vol] 32 g/dL Normal 26-37 [facility] Comment on above: Performed By: #### 1 [id number], [id number], 4461227 ####[facility] (DEFAULT)[address] [place] [address] 44391 MCV (RBC) [Entitic vol] 94 fL Normal 81-100 [facility] Comment on above: Performed By: #### 1 [id number], [id number], 9100273 ####[facility] (DEFAULT)[address] [place] [address] Platelet 196 x10 Normal 138-427 [facility] Comment on above: Performed By: #### 1 [id number], [id number], 6153596 ####[facility] (DEFAULT)[address] [place] [address] 28262 Platelet mean volume (Bld) [Entitic vol] 10.3 fL High 6.3-10.2 [facility] Comment on above: Performed By: #### 1 [id number], [id number], [id number] ####[facility] (DEFAULT)[address] [place] [address] RBC 5.13 x10 Normal 3.70-5.30 [facility] Comment on above: Performed By: #### 1 [id number], 44791481, 9496098 ####[facility] (DEFAULT)[address] [place] [address] 85833 WBC 7.3 x10 Normal 3.5-10.5 [facility] Comment on above: Performed By: #### 1 [id number], [id number], [id number] ####[facility] (DEFAULT)[address] [place] [address] UA w Culture if Ind Standard on 02-04-2021 Breakpoint UA [facility] Comment on above: Performed By: #### 1 [id number] #### [facility] (DEFAULT) [address] [place] [address] 67884 Color (U) Yellow Normal [facility] Comment on above: Performed By: #### 1 [id number] #### [facility] (DEFAULT) [address] [place] [address] 20323 Culture? No [facility] Comment on above: Result Comment: Resu lt created by rule GL_MAGR_ADD_UA_[id number] Result created by rule GL_MAGR_ADD_UA_CULT1 Performed By: #### 1 [id number] #### [facility] (DEFAULT) [address] [place] [address] 49441 Glucose (U) [Mass/Vol] Negative Normal [facility] Comment on above: Performed By: #### 1 [id number] #### [facility] (DEFAULT) [address] [place] [address] 65221 Ketones Ql (U) Negative [facility] Comment on above: Performed By: #### 1 [id number] #### [facility] (DEFAULT) [address] [place] [address] 83436 Micro? Not Indicated [facility] Comment on above: Result Comment: Resu lt created by rule GL_MAGR_ADD_UA_MICRO Performed By: #### 1 [id number] #### [facility] (DEFAULT) [address] [place] [address] 32200 UA Bilirubin Negative Normal [facility] Comment on above: Performed By: #### 1 [id number] #### [facility] (DEFAULT) [address] [place] [address] 00375 UA Blood Negative Normal NEGATIVE [facility] Comment on above: Performed By: #### 1 [id number] #### [facility] (DEFAULT) [address] [place] [address] 66168 UA Clarity CLEAR Normal CLEAR [facility] Comment on above: Performed By: #### 1 [id number] #### [facility] (DEFAULT) [address] [place] [address] 46129 UA Leuk Est Negative Normal NEGATIVE [facility] Comment on above: Performed By: #### 1 [id number] #### [facility] (DEFAULT) [address] [place] [address] 31097 UA Nitrite Negative Normal NEGATIVE [facility] Comment on above: Performed By: #### 1 [id number] #### [facility] (DEFAULT) [address] [place] [address] 57906 UA pH 6.0 Normal 5-8 [facility] Comment on above: Performed By: #### 1 [id number] #### [facility] (DEFAULT) [address] [place] [address] 39855 UA Protein Negative Normal NEGATIVE [facility] Comment on above: Performed By: #### 1 [id number] #### [facility] (DEFAULT) [address] [place] [address] 59422 UA Spec Grav >=1.030 Normal 1.001-1.035 [facility] Comment on above: Performed By: #### 1 [id number] #### [facility] (DEFAULT) [address] [place] [address] 98482 UA Urobilinogen 0.2 mg/dL Normal 0.2-1.0 [facility] Comment on above: Performed By: #### 1 [id number] #### [facility] (DEFAULT) [address] [place] [address] 10085 Urine Source Clean Catch Normal [facility] Comment on above: Performed By: #### 1 [id number] #### [facility] (DEFAULT) [address] [place] [address] 28515 XR Bone Length Studies [facility] 02-04-2021 XR Bone Length Studies [...] MD 02/08/21 7:27 am Technologist: Abilio AMADOR [facility] Echo 2D w doppler w color co mpleteOrdered By: Ej Foster on 09-23-2020 [facility] Transthoracic Echocardiography Report (TTE) Patient Name HEBERLING Date of Study 09/23/2020 ZAINA Morales Date of 1950 Gender Male Age 69 year(s) Race Room Number Height: 72 inch, 182.88 cm Corporate ID [id number] Weight: 288 pounds, 130.6 kg # Patient Acct [id number] BSA: 2.49 m^2 BMI: 39.06 # kg/m^2 MR # [id number] Offset 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 Helper Debi Lopez Interpreting Physician Ej Foster Fellow Referring Nurse Practitioner Interpreting Referring Physician Ej Foster Fellow Type of Study TTE procedure:2D Echocardiogram, M-Mode, Doppler, Color Doppler. Procedure Date Date: 09/23/2020 Start: 11:32 AM Study Location: [facility] Indications:Atrial fibrillation. History / Tech. Comments: A [...] TR Velocity: 2.17 m/s Peak TR Gradient: 18.56440 mmHg Estimated RA Pressure: 3 mmHg Estimated PASP: 21.79 mmHg Diastology / Tissue Doppler Lateral Wall E' velocity:0.07 m/s Lateral Wall E/E':7.23 [employer] Work Phone: Shankar, pn Incoming Cardio Results From [facility]/ - 09/23/2020 5:27 PM EDT [facility] Transthoracic Echocardiography Report (TTE) Patient Name SINGH Date of Study 09/23/2020 ZAINA Morales Date of 1950 Gender Male Age 69 year(s) Race Room Number Height: 72 inch, 182.88 cm Corporate ID [id number] Weight: 288 pounds, 130.6 kg # Patient Acct [id number] BSA: 2.49 m^2 BMI: 39.06 # kg/m^2 MR # [id number] Offset 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 Helper Debi Lopez Interpreting Physician Ej Foster Fellow Referring Nurse Practitioner Interpreting Referring Physician Ej Foster Type of Study TTE procedure:2D Echocardiogram, M-Mode, Doppler, Color Doppler. Procedure Date Date: 09/23/2020 Start: 11:32 AM Study Location: [facility] Indications:Atrial fibrillation. History / Tech. Comments: [...] TR Velocity: 2.17 m/s Peak TR Gradient: 18.89007 mmHg Estimated RA Pressure: 3 mmHg Estimated PASP: 21.79 mmHg Diastology / Tissue Doppler Lateral Wall E' velocity:0.07 m/s Lateral Wall E/E':7.23 [facility] Repair Report Work Phone: [facility] Friday Phone: Basic Metabolic Panel 02-14 Anion gap [Moles/Vol] 10 mmol/L 9 - 17 mmol/L [place] Bun/Cre Ratio 21 High [place], [place] Calcium [Mass/Vol] 9.7 mg/dL 8.6 - 10. 4 mg/dL [place] Chloride [Moles/Vol] 101 mmol/L 98 - 10 7 mmol/L [place] CO2 [Moles/Vol] 28 mmol/L 20 - 31 mmol/L [place] Creatinine [Mass/Vol] 0.89 mg/dL 0.7 - 1.2 mg/dL [place] GFR >60 >60 mL/min [place] GFR Non- >60 >60 mL/min [place] Glucose [Mass/Vol] 101 mg/dL High 70 - 99 mg/dL [place], [place] Interpretation and review of laboratory results Abnormal [place] Potassium [Moles/Vol] 4.3 mmol/L 3.7 - 5.3 mmol/L [place] Sodium [Moles/Vol] 139 mmol/L 135 - 144 mmol/L [place] Urea nitrogen [Mass/Vol] 19 mg/dL 8 - 23 mg/dL [place] Lipid Panelon 03-10-2020 Cholesterol [Mass/Vol] 162 mg/dL <200 [place] Comment on above: Cholesterol Guidelines: <200 Desirable 200-240 Borderline >240 Undesirable Cholesterol in HDL [Mass/Vol] 41 mg/dL >40 [place] Comment on above: HDL Guidelines: <40 Undesirable 40-59 Borderline >59 Desirable Cholesterol in LDL [Mass/Vol] 102 mg/dL 0 - 130 mg/dL [place] Comment on above: LDL Guidelines: <100 Desirable 100-129 Near to/above Desirable 130-159 Borderline >159 Undesirable Direct (measured) LDL and calculated LDL are not interchangeable tests. Cholesterol in VLDL [Mass/Vol] NOT REPORTED 1 - 30 mg/dL [place] Cholesterol.total/Ch olesterol in HDL [Mass ratio] 4 {ratio} <5 [place] Triglyceride [Mass/Vol] 97 mg/dL <150 [place] Comment on above: Triglyceride Guidelines: <150 Desirable 150-199 Borderline 200-499 High >499 Very high Based on AHA Guidelines for fasting triglyceride, November 2011. Metabolic Panelon 03-10-2020 GFR/1.73 sq M predicted among non-blacks MDRD (S/P/Bld) [Vol rate/Area] [place], [place] Comment on above: Stage 1: Some [...] body mass. Additional eGFR calculator available at: http://[email or web address]/multiple_crcl_2012.htm Basic Metabolic Panelon - Anion gap [Moles/Vol] 9 mmol/L 9 - 17 mmol/L [place] Bun/Cre Ratio 16 [place] Calcium [Mass/Vol] 9.6 mg/dL 8.6 - 10. 4 mg/dL [place] Chloride [Moles/Vol] 101 mmol/L 98 - 10 7 mmol/L [place] CO2 [Moles/Vol] 29 mmol/L 20 - 31 mmol/L [place] Creatinine [Mass/Vol] 0.76 mg/dL 0.7 - 1.2 mg/dL [place] GFR >60 >60 mL/min [place] GFR Non- >60 >60 mL/min [place] Glucose [Mass/Vol] 118 mg/dL High 70 - 99 mg/dL [place] Interpretation and review of laboratory results Abnormal [place] Potassium [Moles/Vol] 4.7 mmol/L 3.7 - 5.3 mmol/L [place] Sodium [Moles/Vol] 139 mmol/L 135 - 144 mmol/L [place] Urea nitrogen [Mass/Vol] 12 mg/dL 8 - 23 mg/dL [place] CBCon 01-22-2020 Erythrocyte distribution width (RBC) [Ratio] 14.2 % 11.8 - 14.4 % [place] Hematocrit (Bld) [Volume fraction] 43.4 % 40.7 - 50.3 % [place] Hemoglobin (Bld) [Mass/Vol] 13.4 g/dL 13 - 17 g/dL [place] MCH (RBC) [Entitic mass] 28.9 pg 25.2 - 33.5 pg [place] MCHC (RBC) [Mass/Vol] 30.9 g/dL 28.4 - 34.8 g/dL [place] MCV (RBC) [Entitic vol] 93.7 fL 82.6 - 102.9 fL [place] Platelet mean volume (Bld) [Entitic vol] 9.9 fL 8.1 - 13.5 fL [place], [place] Platelets (Bld) [#/Vol] 217 10*3/uL [place] RBC (Bld) [#/Vol] 4.63 10*6/uL 4.21 - 5.7 7 m/uL [place] WBC (Bld) [#/Vol] 0.0 10*3/uL 0.0 per 10 0 WBC [place] WBC (Bld) [#/Vol] 5.7 10*3/uL [place] ECHO Complete 2D W Doppler W Coloron 01-22-2020 [facility] Transthoracic Echocardiography Report (TTE) Patient Name HEBERASHTYN Date of Study 01/22/2020 ZAINA Morales Date of 1950 Gender Male Age 69 year(s) Race Room Number Height: 73 inch, 185.42 cm Corporate ID [id number] Weight: 273 pounds, 123.8 kg # Patient Acct [id number] BSA: 2.46 m^2 BMI: 36.02 # kg/m^2 MR # [id number] Offset 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 Helper Work,Nini Interpreting Physician Ej Foster Fellow Referring Nurse Practitioner Interpreting Referring Physician Ej Foster Fellow Type of Study TTE procedure:2D Echocardiogram, M-Mode, Doppler, Color Doppler. Procedure Date Date: 01/22/2020 Start: 09:22 AM Study Location: [facility] Indications:Atrial fibrillation, Dyspnea/SOB and History of [...] Wall E' velocity:0.11 m/s Lateral Wall E/E':6.91 [facility] [place], [place] Shankar, Mhpn Incoming Cardio Results From [facility]/ - 01/22/2020 5:08 PM EST [facility] Transthoracic Echocardiography Report (TTE) [facility] Date of Study 01/22/2020 ZAINA Morales Date of 1950 Gender Male Age 69 year(s) Race Room Number Height: 73 inch, 185.42 cm Corporate ID [id number] Weight: 273 pounds, 123.8 kg # Patient Acct [id number] BSA: 2.46 m^2 BMI: 36.02 # kg/m^2 MR # [id number] Offset 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 Helper Nini Tdod Interpreting Physician Ej Foster Referring Nurse Practitioner Interpreting Referring Physician Ej Foster Type of Study TTE procedure:2D Echocardiogram, M-Mode, Doppler, Color Doppler. Procedure Date Date: 01/22/2020 Start: 09:22 AM Study Location: [facility] Indications:Atrial fibrillation, Dyspnea/SOB and History of [...] Wall E' velocity:0.11 m/s Lateral Wall E/E':6.91 [place], [place] Hemoglobin A1Con 01-22-2020 Glucose [Mass/Vol] 123 mg/dL [place], [place] Comment on above: The ADA and AACC rec ommend providing the estimated average glucose result to permit better patient understanding of their HBA1c result. HbA1c (Bld) [Mass fraction] 5.9 % 4 - 6 % [place], [place] Metabolic Panelon 01-22-2020 GFR/1.73 sq M predicted among non-blacks MDRD (S/P/Bld) [Vol rate/Area] [place], [place] Comment on above: Stage 1: Some [...] body mass. Additional eGFR calculator available at: http://www.globalrph.com/multiple_crcl_2012.htm Troponin Ion 01-22-2020 Troponin I.cardiac [Mass/Vol] NOT REPORTED [place], [place] Troponin T.cardiac [Mass/Vol] NOT REPORTED <0.03 ng/mL [place] Troponin, High Sensitivity 15 ng/L 0 - 22 ng/L [place] Comment on above: High Sensitivity Troponin values cannot be compared with other Troponin methodologies. Patients with high levels of Biotin oral intake (i.e >5mg/day) may have falsely decreased Troponin levels. Samples collected within 8 hours of biotin intake may require additional information for diagnosis. BNPon 12-16-2019 Natriuretic peptide B (Bld) [Mass/Vol] 595.0 pg/mL Normal <=900.0 [facility] Comment on above: Performed By: #### T ROP, BNP, CMP, CRP #### [facility] [address] [place] [id number] Cheryl Zarina CBC AUTO DIFFon 12-16-2019 Basophils (Bld) [#/Vol] 0.0 103/ul Normal 0.0-0.1 [facility] Comment on above: Performed By: #### C BC #### [facility] [address] [place] [address] Cheryl Zarina Basophils/100 WBC (Bld) 0.1 % Critically low 0.2-2.0 [facility] Comment on above: Performed By: #### C BC #### [facility] [address] [place] [address] Cheryl Zarina Eosinophils (Bld) [#/Vol] 0.0 103/ul Normal 0.0-0.7 [facility] Comment on above: Performed By: #### C BC #### [facility] [address] [place] [address] Cheryl Zarina Eosinophils/100 WBC (Bld) 0.0 % Critically low 0.9-7.0 [facility] Comment on above: Performed By: #### C BC #### [facility] [address] [place] [address] Cheryl Zarina Erythrocyte distribution width (RBC) [Ratio] 12.9 % Normal 11.0-15.0 [facility] Comment on above: Performed By: #### C BC #### [facility] [address] [place] [address] Cheryl Srinivasan Hematocrit (Bld) [Volume fraction] 45.2 % Normal 42.0-54.0 [facility] Comment on above: Performed By: #### C BC #### [facility] [address] [place] [address] Cheryl Zarina Hemoglobin (Bld) [Mass/Vol] 15.1 g/dL Normal 14.0-18.0 [facility] Comment on above: Performed By: #### C BC #### [facility] [address] [place] [address] Cheryl Zarina IG # 0.06 10e3/ul Critically high 0.00-0.03 [facility] Comment on above: Performed By: #### C BC #### [facility] [address] [place] [address] Cheryl Zarina IG % 0.6 % Critically high 0.0-0.5 [facility] Comment on above: Performed By: #### C BC #### [facility] [address] [place] [address] Cheryl Zarina Lymphocytes (Bld) [#/Vol] 1.0 103/ul Critically low 1.2-3.8 [facility] Comment on above: Performed By: #### C BC #### [facility] [address] [place] [address] Cheryl Srinivasan Lymphocytes/100 WBC (Bld) 10.1 % Critically low 20.5-60.0 [facility] Comment on above: Performed By: #### C BC #### [facility] [address] [place], [place] [id number] Cheryl Srinivasan MANUAL DIFF REQ NO Normal [facility] Comment on above: Performed By: #### C BC #### [facility] [address] [place], [place] [id number] Cheryl Srinivasan MCH (RBC) [Entitic mass] 30.0 pg Normal 25.9-34.0 [facility] Comment on above: Performed By: #### C BC #### [facility] [address] [id number] Cheryljason Srinivasan MCHC (RBC) [Mass/Vol] 33.4 g/dL Normal 29.9-35.2 [facility] Comment on above: Performed By: #### C BC #### [facility] [address] [place], [place] [id number] Cheryl Zarina MCV (RBC) [Entitic vol] 89.7 fL Normal 80.0-94.0 [facility] Comment on above: Performed By: #### C BC #### [facility] [address] [place], [place] [id number] Cheryl Zarina Monocytes (Bld) [#/Vol] 0.3 103/ul Normal 0.3-0.8 [facility] Comment on above: Performed By: #### C BC #### [facility] [address] [place], [place] [id number] Cheryl Zarina Monocytes/100 WBC (Bld) 3.4 % Normal 1.7-12.0 [facility] Comment on above: Performed By: #### C BC #### [facility] [address] [place], [place] [phone] Cheryl Zarina Neutrophils (Bld) [#/Vol] 8.3 103/ul Critically high 1.4-6.5 [facility] Comment on above: Performed By: #### C BC #### [facility] [address] [place], [place] [id number] Cheryl Zarina Neutrophils/100 WBC (Bld) 85.8 % Critically high 43.0-75.0 [facility] Comment on above: Performed By: #### C BC #### [facility] [address] [place], [place] [id number] Cheryl Zarina Platelet mean volume (Bld) [Entitic vol] 9.7 fL Normal 9.5-13.5 [facility] Comment on above: Performed By: #### C BC #### [facility] [address] [place], [place] [id number] Cheryl Zarina Platelets (Bld) [#/Vol] 270 103/ul Normal 150-450 [facility] Comment on above: Performed By: #### C BC #### [facility] [address] [place], [place] [address] Cheryl Srinivasan RBC (Bld) [#/Vol] 5.04 106/ul Normal 4.70-6.10 [facility] Comment on above: Performed By: #### C BC #### [facility] [address] [place], [place] [address] Cheryl Srinivasan WBC (Bld) [#/Vol] 9.7 103/ul Normal 4.0-11.0 [facility] Comment on above: Performed By: #### C BC #### [facility] [address] [place], [place] [address] Cheryl Srinivasan CRPon 12-16-2019 CRP [Mass/Vol] 12.3 mg/dL Critically high <=1.0 [facility] Comment on above: Performed By: #### C BC #### [facility] [address] [place], [place] [address] Cheryl Srinivasan CTA CHEST WO W CONon [...] RUPESH ULRICH Date: 2019-12-16 05:43 Normal [facility] D-DIMERon 12-16-2019 D-DIMER COMMENTS SEE BELOW Normal [facility] Comment on above: Result Comment: Incr [...] By: #### D DIM, PT, PTT #### [facility] [address] [place], [place] [id number] Cheryl Srinivasan Fibrin D-dimer FEU IA (Bld) [Mass/Vol] 0.84 ug/mL Critically high 0.19-0.50 [facility] Comment on above: Result Comment: test repeated critcal value verified Performed By: #### D DIM, PT, PTT #### [facility] [address] [place], [place] [phone] Cheryl Srinivasan LACTATE/LACTIC ACIDon 2019 Lactate [Moles/Vol] 1.8 mmol/L Normal 0.7-2.0 [facility] Comment on above: Performed By: #### L ACT #### [facility] [address] [place], [place] [id number] Cheryl Srinivasan PROF 14(COMP METB)on 020 Albumin [Mass/Vol] 3.2 g/dL Critically low 3.5-5.0 [facility] Comment on above: Performed By: #### T ROP, BNP, CMP, CRP #### [facility] [address] [place], [place] [phone] Cheryl Srinivasan Albumin/Globulin [Mass ratio] 0.8 {ratio} Normal [facility] Comment on above: Performed By: #### T ROP, BNP, CMP, CRP #### [facility] [address] [place], [place] [phone] Cheryl Srinivasan ALP [Catalytic activity/Vol] 85 U/L Normal 38-126 [facility] Comment on above: Performed By: #### T ROP, BNP, CMP, CRP #### [facility] [address] [place] [address] Cheryl Zarina ALT [Catalytic activity/Vol] 63 U/L Normal 21-72 [facility] Comment on above: Performed By: #### T ROP, BNP, CMP, CRP #### [facility] [address] [place] [address] Cheryl Zarina Anion gap [Moles/Vol] 14.2 mmol/L Normal [facility] Comment on above: Performed By: #### T ROP, BNP, CMP, CRP #### [facility] [address] [place] [address] Cheryl Zairna AST [Catalytic activity/Vol] 53 U/L Normal 17-59 [facility] Comment on above: Performed By: #### T ROP, BNP, CMP, CRP #### [facility] [address] [place] [address] Cheryl Zarina Bilirubin Ql (U) 1.0 mg/dL Normal 0.2-1.3 [facility] Comment on above: Performed By: #### T ROP, BNP, CMP, CRP #### [facility] [address] [place] [address] Cheryl Zarina Calcium [Mass/Vol] 9.0 mg/dL Normal 8.4-10.2 [facility] Comment on above: Performed By: #### T ROP, BNP, CMP, CRP #### [facility] [address] [place] [address] Cheryl Zarina Chloride [Moles/Vol] 96 mmol/L Critically low 98-107 [facility] Comment on above: Performed By: #### T ROP, BNP, CMP, CRP #### [facility] [address] [place] [address] Cheryl Zarina CO2 [Moles/Vol] 25.8 mmol/L Normal 22.0-30.0 [facility] Comment on above: Performed By: #### T ROP, BNP, CMP, CRP #### [facility] [address] [address] Cheryl Zarina Creatinine [Mass/Vol] 0.90 mg/dL Normal 0.66-1.25 [facility] Comment on above: Performed By: #### T ROP, BNP, CMP, CRP #### [facility] [address] [id number] Cheryl Zarina EGFR-AF NORWEGIAN >60 Normal >=60 [facility] Comment on above: Performed By: #### T ROP, BNP, CMP, CRP #### [facility] [address] [address] Cheryl Zarina EGFR-NON AF NORWEGIAN >60 Normal >=60 [facility] Comment on above: Performed By: #### T ROP, BNP, CMP, CRP #### [facility] [address] [address] Cheryl Zarina Globulin (S) [Mass/Vol] 4.1 g/dL Normal [facility] Comment on above: Performed By: #### T ROP, BNP, CMP, CRP #### [facility] [address] [address] Cheryl Zarina Glucose [Mass/Vol] 146 mg/dL Critically high 74-106 [facility] Comment on above: Performed By: #### T ROP, BNP, CMP, CRP #### [facility] [address] [address] Cheryl Zarina Potassium [Moles/Vol] 4.0 mmol/L Normal 3.4-5.0 [facility] Comment on above: Performed By: #### T ROP, BNP, CMP, CRP #### [facility] [address] [address] Cheryl Zarina Protein [Mass/Vol] 7.3 g/dL Normal 6.1-8.2 [facility] Comment on above: Performed By: #### T ROP, BNP, CMP, CRP #### [facility] [address] [address] Cheryl Zarina Sodium [Moles/Vol] 132 mmol/L Critically low 137-145 [facility] Comment on above: Performed By: #### T ROP, BNP, CMP, CRP #### [facility] [address] [place], [place] [phone] Cheryl Zarina Urea nitrogen [Mass/Vol] 18.0 mg/dL Normal 9.0-20.0 [facility] Comment on above: Performed By: #### T ROP, BNP, CMP, CRP #### [facility] [address] [place], [place] [phone] Cheryl Zarina Urea nitrogen/Creatinine [Mass ratio] 20.0 mg/mg Normal [facility] Comment on above: Performed By: #### T ROP, BNP, CMP, CRP #### [facility] [address] [place], [place] [phone] Cheryl Zarina PROTIMEon 12-16-2019 INR Coag (PPP) [Relative time] 0.97 {INR} Normal [facility] Comment on above: Performed By: #### D DIM, PT, PTT #### [facility] [address] [place] [address] Cheryl Zarina PT Coag (PPP) [Time] PLEASE NOTE: NORMAL RANGE CHANGE 10-31-2013 DUE TO REAGENT LOT CHANGE Normal [facility] Comment on above: Performed By: #### D DIM, PT, PTT #### [facility] [address] [place], [place] [phone] Cheryl Zarina PT Coag (PPP) [Time] 10.3 s Normal 9.0-11.6 [facility] Comment on above: Performed By: #### D DIM, PT, PTT #### [facility] [address] [place], [place] [phone] Cheryl Zarina PT Coag (PPP) [Time] SEE BELOW Normal [facility] Comment on above: Result Comment: CHEMO RED INR: 2.0 - 3.0 CONDITIONS NOT LISTED BELOW 2.5 - 3.5 FOR PROSTHETIC HEART VALVE REPLACEMENT 2.5 - 3.5 RECURRENT THROMBOSIS Performed By: #### D DIM, PT, PTT #### [facility] [address] [place], [place] [phone] Cheryl Zarina PTTon 12-16-2019 aPTT Coag (Bld) [Time] PLEASE NOTE: NORMAL RANGE CHANGE 01-07-2015 DUE TO REAGENT LOT CHANGE Normal [facility] Comment on above: Performed By: #### D DIM, PT, PTT #### [facility] [address] [place] [address] Cheryl Srinivasan aPTT Coag (Bld) [Time] 26.0 s Normal 22.3-36.2 [facility] Comment on above: Performed By: #### D DIM, PT, PTT #### [facility] [address] [place] [address] Cheryl Srinivasan Rapid Covid-19 PCRon 020 [employer]vest LDT Info SEE BELOW Normal [facility] Comment on above: Result Comment: This test is not yet approved or cleared by the [place] Food and Drug Administration (FDA) . This test was developed by [employer], [facility]. The performance characteristics of this test were validated by The [facility]. The results are not intended to be used as the sole means for clinical diagnosis or patient management decisions. The [facility] is authorized under Clinical Laboratory Improvement Amendments (CLIA) to perform high-complexity testing. When diagnostic testing is negative, the possibility of a false negative should be considered in the context of a patients recent exposures and the presence of clinical signs and symptoms consistent with SARS-CoV-2. Performed By: #### C VDRPD #### [facility] [address] [place] [address] Cheryl Srinivasan SARS-CoV-2 DETECTED NOT DETECTED [facility] Comment on above: Result Comment: . Performed By: #### C VDRPD #### [facility] [address] [place] [address] Cheryl Srinivasan TROPONIN - Ion 12-16-2019 Troponin I.cardiac [Mass/Vol] ng/mL Normal <=0.034 [facility] Comment on above: Performed By: #### C BC #### [facility] [address] [place] [address] Cheryl Srinivasan Troponin I.cardiac [Mass/Vol] SEE BELOW Normal [facility] Comment on above: Result Comment: <0.0 34 ng/ml NEGATIVE 0.034-0.119 INDETERMINATE 0.120 AMI CUT OFF Performed By: #### C BC #### [facility] [address] [place] [address] Cheryl Srinivasan Vital Signs Date Time Vital Sign Value Performing Clinician Ekta bland 02-23-2024 12:30-0500 Diastolic blood pressure 97 mm[Hg] Ej Foster MD Work Phone: [facility] 02-23-2024 12:30-0500 Heart rate 57 /min Ej Foster MD Work Phone: [facility] 02-23-2024 12:30-0500 Respiratory rate 17 /min Ej Foster MD Work Phone: [facility] 02-23-2024 12:30-0500 SaO2% (BldA) [Mass fraction] 96 % Ej Foster MD Work Phone: [facility] 02-23-2024 12:30-0500 Systolic blood pressure 131 mm[Hg] Ej Foster MD Work Phone: [facility] 02-23-2024 12:11-0500 Body temperature 96.8 [degF] Ej Foster MD Work Phone: [facility] 02-20-2024 14:13-0500 Body height 181.6 cm Kenia Castillo [employer] WORK[employer] Work Phone: [facility] 02-20-2024 14:13-0500 Body mass index (BMI) [Ratio] 43.07 kg/m2 Kenia Castillo [employer] WORKER Work Phone: [facility] 02-20-2024 14:13-0500 Body weight 142.07 kg Kenia Castillo [employer] WORKER Work Phone: [facility] 02-20-2024 14:13-0500 Diastolic blood pressure 60 mm[Hg] Kenia Castillo [employer]ING FA[employer] WORKER Work Phone: [facility] 02-20-2024 14:13-0500 Heart rate 98 /min Kenia Castillo [employer]ING [employer] WORKER Work Phone: [facility] 02-20-2024 14:13-0500 SaO2% (BldA) [Mass fraction] 95 % Kenia Castillo [employer]ING [employer] WORKER Work Phone: [facility] 02-20-2024 14:13-0500 Systolic blood pressure 120 mm[Hg] Kenia Castillo [employer]ING [employer] WORKER Work Phone: [facility] 02-05-2024 14:54-0500 Body height 182.9 cm Mth 1 [facility] 02-05-2024 14:54-0500 Body mass index (BMI) [Ratio] 41.88 kg/m2 Mth 1 [facility] 02-05-2024 14:54-0500 Body weight 140.1 kg Mth 1 [facility] 02-05-2024 14:54-0500 Diastolic blood pressure 77 mm[Hg] Mth 1 [facility] 02-05-2024 14:54-0500 Systolic blood pressure 120 mm[Hg] Mth 1 [facility] 12-26-2023 13:04-0500 Body mass index (BMI) [Ratio] 38.92 kg/m2 Jeannine Evangelista [employer] WORKER Work Phone: [facility] 12-26-2023 13:04-0500 Body temperature 97.39 [degF] Jeannine Evangelista [employer] WORKER Work Phone: [facility] 12-26-2023 13:04-0500 Body weight 133.81 kg Jeannine Tonja [employer] WORKER Work Phone: [facility] 12-26-2023 13:04-0500 Diastolic blood pressure 74 mm[Hg] Jeannine Moseleyk [employer]ING [employer] WORKER Work Phone: [facility] 12-26-2023 13:04-0500 Systolic blood pressure 160 mm[Hg] Jeannine Moseleyk [employer]ING [employer] WORKER Work Phone: [facility] 11-15-2023 12:53-0400 Body height 185.4 cm Arianna Lou DPM Work Phone: [facility] 11-15-2023 12:53-0400 Body mass index (BMI) [Ratio] 40.13 kg/m2 Arianna Rusher DPM Work Phone: [facility] 11-15-2023 12:53-0400 Body weight 137.98 kg Arianna Lou DPM Work Phone: [facility] 10-11-2023 08:58-0400 Body mass index (BMI) [Ratio] 40.13 kg/m2 Kenia Castillo [employer] WORKER Work Phone: [facility] 10-11-2023 08:58-0400 Body temperature 96.69 [degF] Kenia Castillo [employer]ING [employer] WORKER Work Phone: [facility] 10-11-2023 08:58-0400 Body weight 137.98 kg Kenia Castillo [employer]ING [employer] WORKER Work Phone: [facility] 10-11-2023 08:58-0400 Diastolic blood pressure 86 mm[Hg] Kenia Castillo [employer] WORKER Work Phone: [facility] 10-11-2023 08:58-0400 Heart rate 67 /min Kenia Castillo [employer]ING [employer] WORKER Work Phone: [facility] 10-11-2023 08:58-0400 SaO2% (BldA) [Mass fraction] 95 % Kenia Castillo [employer] WORKER Work Phone: [facility] 10-11-2023 08:58-0400 Systolic blood pressure 132 mm[Hg] Kenia Castillo [employer] WORKER Work Phone: [facility] 02-12-2020 09:31-0500 Pulse Oximetry 98 % [facility] [place] 02-12-2020 09:30-0500 BP Diastolic 73 mm[Hg] [facility] , [place] 02-12-2020 09:30-0500 BP Systolic 135 mm[Hg] [facility] , [place] 02-12-2020 09:30-0500 Pulse (Heart Rate) 56 /min [facility], [place] 02-12-2020 09:30-0500 Respiratory Rate 22 /min Ej [facility] [employer], [place] 02-12-2020 07:14-0500 BMI (Body Mass Index) 36.89 kg/m2 Ej Foster [facility], [place] 02-12-2020 07:140500 Body weight 123.38 kg Ej Foster [facility] , [place] 02-12-2020 07:14-0500 Height 182.9 cm Ej Kimorcarmen [facility] [place] Encounters Encounter Date Encounter Type Care Provider Facility Start: 02-23-2024 End: 02-25-2024 ambulatory EJ FOSTER [facility] Start: 02-23-2024 End: 02-25-2024 Subsequent hospital visit by physician Ej Foster MD Work Phone: [facility] Comment on above: Paroxysmal atrial fi brillation (HCC) (Primary Dx); PAF (paroxysmal atrial fibrillation) (HCC) AF (paroxysmal atria l fibrillation) (HCC) Start: 02-20-2024 End: 02-20-2024 ambulatory KENIA CASTILLO Not Available Start: 02-20-2024 End: 02-20-2024 Bamboo flowsheet Kenia Castillo [employer] WORKER Work Phone: [facility] Start: 02-20-2024 End: 02-20-2024 Bamboo flowsheet Kenia Castillo [employer] WORKER Work Phone: [facility] Start: 02-20-2024 End: 02-20-2024 Patient encounter procedure Kenia Castillo [employer] WORKER Work Phone: [facility] Comment on above: Encounter for [facility] ss examination (Primary Dx); Mixed hyperlipidemia (CMS/HCC); Primary hypertension (CMS/HCC); Type 2 diabetes mellitus with other specified complication, without long-term current use of insulin (CMS/HCC); Vitamin D deficiency; 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; Gastroesophageal reflux disease without esophagitis; Paroxysmal atrial fibrillation (CMS/HCC); POOL (obstructive sleep apnea); Peripheral edema; PVD (peripheral vascular disease) (CMS/HCC); Lumbar radiculopathy; Restless legs syndrome; GERD without esophagitis; Type 2 diabetes mellitus with diabetic peripheral angiopathy without gangrene, without long-term current use of insulin (CMS/HCC); Insomnia, unspecified type; Morbid (severe) obesity due to excess calories ([facility]); Colon cancer screening declined; Screening PSA (prostate specific antigen); Benign prostatic hyperplasia with lower urinary tract symptoms, symptom details unspecified; Body mass index (BMI) 40.0-44.9, adult ([facility]/HCC) Start: 02-20-2024 End: 02-20-2024 Patient encounter status Keniawilian Castillo [employer] WORKER [facility]: [facility] [facility] Start: 02-19-2024 End: 02-19-2024 Refill Bernie Adam MD Work Phone: [facility] Comment on above: Type 2 diabetes magnolia itus with diabetic peripheral angiopathy without gangrene ([facility]) Start: 02-05-2024 End: 02-07-2024 ambulatory [facility] Start: 02-05-2024 End: 02-07-2024 Subsequent hospital visit by physician [address] Non-Invasive Cardiology Comment on above: Permanent atrial fib rillation ([facility]); Chronic anticoagulation; Essential hypertension; Type 2 diabetes mellitus with diabetic nephropathy, without long-term current use of insulin ([facility]); History of COVID-19; Obesity, Class III, BMI 40-49.9 (morbid obesity) Start: 01-31-2024 End: 01-31-2024 Refill Bernie Adam MD Work Phone: [facility] Comment on above: Restless legs syndro me Start: 01-01-2024 End: 01-01-2024 Orders Only Jeannine Evangelista [employer] WORKER Work Phone: [facility] Comment on above: Bronchitis (Primary Dx) Start: 12-29-2023 End: 02-12-2024 Orders Only Jeannine Evangelista [employer] WORKER Work Phone: [facility] Comment on above: Bronchitis Start: 12-28-2023 End: 12-28-2023 Refill Bernie Adam MD Work Phone: [facility] Comment on above: Bronchitis Bronchitis (Primary Dx) Start: 12-26-2023 End: 12-26-2023 Bamboo flowsheet Jeannine Evangelista [employer]AKING FACTORY WORKER Work Phone: [facility] Start: 12-26-2023 End: 12-26-2023 Bamboo flowsheet Jeannine Evangelista [employer]ING FA[employer]ORY WORKER Work Phone: [facility] Start: 12-26-2023 End: 12-26-2023 Office outpatient visit 15 minutes Jeannine Evangelista [employer]ING FA[employer]ORY WORKER Work Phone: [facility] Comment on above: Acute right otitis m edia (Primary Dx); Bronchitis Start: 12-26-2023 End: 12-26-2023 ambulatory JEANNINE EVANGELISTA Not Available Start: 12-21-2023 End: 12-21-2023 Telephone encounter Bernie Adam MD Work Phone: [facility] Start: 11-15-2023 End: 11-15-2023 Bamboo flowsheet Arianna Lou DPM Work Phone: [facility] Start: 11-15-2023 End: 11-15-2023 Bamboo flowsheet Arianna Lou DPM Work Phone: [facility] Start: 11-15-2023 End: 11-15-2023 Patient encounter procedure Arianna Lou DPM Work Phone: [facility] Comment on above: Dermatophytosis of n ail (Primary Dx); Dystrophic nail; Pain around toenail, right foot; Pain around toenail, left foot Start: 11-15-2023 End: 11-15-2023 ambulatory ARIANNA LOU Not Available Start: 11-13-2023 End: 11-13-2023 ambulatory Ever Guillen MD Facility:[facility] Start: 10-23-2023 End: 10-24-2023 Refill Kenia Castillo [employer] WORKER Work Phone: [facility] Comment on above: Paroxysmal atrial fi brillation (CMS/HCC) Start: 10-23-2023 End: 10-23-2023 ambulatory Ever Guillen MD Facility: [facility] Start: 10-11-2023 End: 10-11-2023 Bamboo flowsheet Kenia Castillo [employer]AKING FACTORY WORKER Work Phone: [facility] Start: 10-11-2023 End: 10-11-2023 Bamboo flowsheet Kenia Castillo BAKING FACTORY WORKER Work Phone: [facility] Start: 10-11-2023 End: 10-11-2023 Office outpatient visit 15 minutes Kenia Castillo [employer]ING [employer] WORKER Work Phone: [facility] Comment on above: Dental abscess (Prim ora Dx) Start: 10-11-2023 End: 10-11-2023 ambulatory KENIA CASTILLO Not Available Start: 09-19-2023 End: 09-19-2023 ambulatory KENIA CASTILLO Not Available Start: 09-18-2023 End: 09-18-2023 ambulatory Ever Guillen MD Facility: [facility] Start: 07-24-2023 End: 07-24-2023 ambulatory [facility] Start: 07-20-2023 End: 07-20-2023 ambulatory ARIANNA LOU Not Available Start: 07-18-2023 End: 07-18-2023 ambulatory KENIA CASTILLO Not Available Start: 06-19-2023 End: 06-19-2023 ambulatory BOBBY PINK Not Available Start: 06-14-2023 End: 06-30-2023 ambulatory DAVID AWAD JR [facility] Start: 06-09-2023 End: 06-09-2023 ambulatory KENIA CASTILLO Not Available Start: 05-24-2023 End: 05-24-2023 ambulatory DAVID HENDRICKSON Not Available Start: 05-23-2023 End: 05-23-2023 ambulatory Marina Redd Facility:[facility] Start: 05-23-2023 End: 05-23-2023 ambulatory AWAIS Moseleyk Work Phone: [facility] Work Phone: Start: 05-23-2023 End: 05-23-2023 Patient encounter procedure [employer] WORKER-C Jeannine Evangelista Work Phone: [facility] [address] Work Phone: Start: 05-11-2023 End: 05-11-2023 ambulatory [employer] WORKER-C Jeannine Evangelista Work Phone: [facility] Work Phone: Start: 05-11-2023 End: 05-11-2023 Patient encounter procedure [employer] WORKER-C Jeannine Evangelista Work Phone: [facility] [address] Work Phone: Start: [...] be covered. He gave a reference # [id number].) Start: 03-29-2023 Telephone encounter Yuliya lantigua PT [...] so.) Start: 03-28-2023 Telephone encounter Maddie Latham COMMISSIONS SPECIALIST [facility] Comment on above: re: PT today (Called and noted auth is still pending for PT and in need to cx today; I informed I will keep up-to-date come his next on 03/30.) Start: 03-23-2023 [employer] Yuilya kinney PT Work Phone: [facility] Start: 03-23-2023 [employer] Yuliya kinney PT Work Phone: [facility] [...] 03-01-2023 ambulatory ARIANNA LOU Not Available Start: 09-23-2020 End: 09-23-2020 Subsequent hospital visit by physician [facility] Echo Room [facility] Echocardiography Comment on above: Persistent atrial fi brillation (HCC); SOB (shortness of breath); Essential hypertension; Other specified diabetes mellitus with other specified complication, unspecified whether lobsterman insulin use (HCC); Class 2 obesity with body mass index (BMI) of 36.0 to 36.9 in adult, unspecified obesity type, unspecified whether serious comorbidity present; Pain in both lower extremities Start: 03-10-2020 End: 03-12-2020 Subsequent hospital visit by physician [facility] Vascular Imaging Room [facility] Laboratory Comment on above: Controlled type 2 di abetes mellitus with hyperglycemia, without long-term current use of insulin (HCC); Persistent atrial fibrillation (HCC); SOB (shortness of breath); Essential hypertension; Other specified diabetes mellitus with other specified complication, unspecified whether care home insulin use (HCC); Class 2 obesity with body mass index (BMI) of 36.0 to 36.9 in adult, unspecified obesity type, unspecified whether serious comorbidity present; COVID-19; Fluid retention; Pain in both lower extremities Pain in both lower e xtremities; PVD (peripheral vascular disease) (HCC) Start: 02-12-2020 End: 02-12-2020 Subsequent hospital visit by physician Ej Foster Work Phone: [facility] ICU Comment on above: Arrived Start: 01-22-2020 End: 01-22-2020 Subsequent hospital visit by physician [facility] Echo Room [facility] Echocardiography Comment on above: Persistent atrial fi brillation (HCC); Essential hypertension; SOB (shortness of breath); Fluid retention; Other specified diabetes mellitus with other specified complication, unspecified whether care home insulin use ([facility]); Class 2 obesity with body mass index (BMI) of 36.0 to 36.9 in adult, unspecified obesity type, unspecified whether serious comorbidity present Start: 12-16-2019 End: 12-16-2019 Patient encounter procedure [facility] Facility: Start: 12-11-2019 End: 12-11-2019 Subsequent hospital visit by physician [facility] Covid Screening Schedule [facility] Covid Screening Comment on above: Arrived Procedures Date Procedure Procedure Detail Performing Clinician Start: 02-23-2024 End: 02-23-2024 Ecg routine ecg w/least 12 lds w/i&r Ej Foster MD Work Phone: Start: 02-23-2024 Ecg routine ecg w/le ast 12 lds w/i&r Ej Foster MD Work Phone: Start: 02-20-2024 Urine albumin quantitative Kenia Castillo [employer] WORKER Work Phone: Start: 02-20-2024 Lipid panel Kenia rush [employer] WORKER Work Phone: Start: 02-20-2024 Comprehensive metabo lic panel Kenia Castillo [employer] WORKER Work Phone: Start: 02-05-2024 Echo tthrc r-t 2d w/wom-mode compl spec&colr d Shalini Morrow PA-C Work Phone: Start: 09-23-2020 Echo tthrc r-t 2d w/wom-mode compl spec&colr d Ej Wilks Kate Foster MD Work Phone: Start: 03-10-2020 Basic metabolic pane l calcium total Ej Kimmacarmen Work Phone: Start: 03-10-2020 Lipid panel Ej Kim dorina Work Phone: Start: 02-12-2020 Ecg routine ecg w/le ast 12 lds w/i&r Ej Love Wilianmacarmen Work Phone: Start: 01-22-2020 Assay of troponin quantitative Ej Love Cristian Work Phone: Start: 01-22-2020 Basic metabolic pane l calcium total Ej Love Cristian Work Phone: Start: 01-22-2020 Blood count complete automated Ej Love Cristian Work Phone: Start: 01-22-2020 Hemoglobin glycosylated a1c Ej Love Cristian Work Phone: Start: 01-22-2020 Echo tthrc r-t 2d w/wom-mode compl spec&colr d Ej Love Wilianmad Work Phone: Start: 12-16-2019 End: 12-16-2019 Microscopic examination of blood, [facility] Comment on above: Performed By: #### B [id number] #### [facility] [address] [place], [place] [address] Cheryl Srinivasan Performed By: #### C BC #### [facility] [address] [place] [id number] Cheryl Srinivasan Plan of Treatment Date Care Activity Detail Author Start: 11-28-2028 DTaP/Tdap/Td vaccine (2 - Td or Tdap) DTaP/Tdap/Td vaccine (2 - Td or Tdap) [facility] Start: 11-28-2028 DTaP/Tdap/Td vaccine (2 - Td) DTaP/Tdap/Td vaccine (2 - Td) [facility] [place], [place] Start: 02-19-2025 Medicare Annual Wellness (AWV) Medicare Annual Wellness (AWV) [facility] Start: 02-19-2025 Urine screening for protein Diabetes: Urine Protein Screening [facility] Start: 06-27-2024 Screening for malignant neoplasm of colon Colorectal Cancer Screening [facility] Comment on above: Postponed from 1948 (Patient Refus ed) Start: 06-08-2024 Urine screening for protein Diabetes: Urine Protein Screening [facility] Start: 05-20-2024 Hemoglobin A1c measurement Diabetes: Hemoglobin A1C [facility] Start: 05-20-2024 End: 05-20-2024 Patient encounter procedure 05/20/2024 2:00 PM EDT Office Visit [facility] [address] [place] [phone] Kenia Castillo NP [address] [place] [address] [facility] Start: 03-21-2024 End: 03-21-2024 Patient encounter procedure 03/21/2024 2:00 PM EST Office Visit [facility] Part [address] [phone] Shalini Morrow PA-C [address] [place] [id number] 4 week [facility] Part [facility] Comment on above: 4 week Start: 03-19-2024 End: 03-19-2024 Patient encounter procedure 03/19/2024 1:00 PM EST Procedure Visit [facility] [address] [place] [phone] Arianna Lou DPM [address] [place] [address] [facility] Start: 03-04-2024 End: 03-04-2024 Patient encounter procedure 03/04/2024 1:00 PM EST Office Visit [facility] [address] [facility] [address] [place] [phone] Marina Redd PA [address] [facility] [address] [place] [address] [facility] Start: 02-22-2024 End: 02-22-2024 Patient encounter procedure 02/22/2024 3:00 PM EST Office Visit [facility] Part [facility] [address] [facility] [place] [phone] Shalini Morrow PA-C [address] [place], [place] [id number] 2 week [facility] Comment on above: 2 week Start: 02-22-2024 Annual Wellness Visit (Medicare) Annual Wellness Visit (Medicare) Grant [facility] Start: 02-20-2024 End: 02-20-2024 Patient encounter procedure 02/20/2024 2:00 PM EST Office Visit [facility] [address] [facility] [address] [place] [phone] Kenia Castillo NP [address] [facility] [place] [address] [facility] Start: 01-17-2024 End: 01-17-2024 Patient encounter procedure 01/17/2024 2:00 PM EST Office Visit [facility] [address] [facility] [place] [address] Kenia Castillo NP [address] [place] [address] [facility] Start: 12-20-2023 Hemoglobin A1c measurement Diabetes: Hemoglobin A1C [facility] Start: 12-03-2023 Medicare Annual Wellness (AWV) Medicare Annual Wellness (AWV) [facility] Start: 11-15-2023 End: 11-15-2023 Patient encounter procedure [facility] Comment on above: Arrived Start: 11-02-2023 Urine screening for protein Diabetes: Urine Protein Screening [facility] Start: 10-15-2023 Influenza vaccination Influenza Vaccine (#1) [facility] Start: 10-11-2023 End: 10-11-2023 Patient encounter procedure 10/11/2023 9:00 AM EDT Office Visit [facility] [address] [facility] [place] [phone] Kenia Castillo [employer]ING [employer]ORY WORKER [address] [facility] [place] [address] Arrived [facility] Comment on above: Arrived Start: 06-14-2023 End: 06-14-2023 Patient encounter procedure 06/14/2023 1:30 PM EDT Procedure Visit [facility] [address] [place] [phone] Arianna Lou DPM [address] [place] [address] [facility] Start: 06-09-2023 End: 06-09-2023 Patient encounter procedure 06/09/2023 1:00 PM EDT Office Visit [facility] [address] [facility] [place] [phone] Kenia Castillo [employer]AKING FA[employer]ORY WORKER [address] [place] [address] [facility] Start: 05-04-2023 GFR test (Diabetes, CKD 3-4, OR last GFR 15-59) GFR test (Diabetes, CKD 3-4, OR last GFR 15-59) [facility] Start: 04-17-2023 End: 04-17-2023 Patient encounter procedure 04/17/2023 1:30 PM EST Office Visit [facility] [address] [facility] [address] [place] [address] Marina Redd PA [address] [place] [address] [facility] Start: 04-13-2023 End: 04-13-2023 ambulatory 04/13/2023 1:00 PM EST Treatment [facility] [address] [place] [phone] Yuliya Romero, PT [address] [facility] [address] [place] [address] [facility] Start: 04-11-2023 End: 04-11-2023 ambulatory 04/11/2023 1:00 PM EST Treatment [facility] [address] [place] [address] Maddie Latham, COMMISSIONS SPECIALIST [facility] Start: 04-06-2023 End: 04-06-2023 ambulatory 04/06/2023 2:00 PM EST Treatment [facility] [address] [facility] [address] [place] [address] Maddie Latham, COMMISSIONS SPECIALIST [facility] Start: 04-05-2023 End: 04-05-2023 ambulatory 04/05/2023 1:00 PM EST Treatment [facility] [address] [facility] [address] [place] [address] Valerie Argueta, PT [facility] Start: 04-04-2023 End: 04-04-2023 ambulatory 04/04/2023 1:00 PM EST Treatment [facility] [address] [facility] [address] [place] [address] Maddie Ltaham, COMMISSIONS SPECIALIST [facility] Start: 03-30-2023 End: 03-30-2023 ambulatory 03/30/2023 2:00 PM EST Treatment [facility] [address] [facility] [address] [place] [address] Maddie Latham, COMMISSIONS SPECIALIST [facility] Start: 03-28-2023 End: 03-28-2023 ambulatory 03/28/2023 1:30 PM EST Treatment [facility] [address] [facility] [address] [place] [address] Maddie Latham, COMMISSIONS SPECIALIST [facility] Start: 03-23-2023 End: 03-23-2023 ambulatory 03/23/2023 1:00 PM EST Evaluation [facility] [address] [facility] [address] [place] [address] Yuliya Romero, PT [address] [facility] [place] [address] Left thigh pain; Muscle strain of left thigh, subsequent encounter [facility] Comment on above: Left thigh pain; Muscle strain of left thigh, subsequent encounter Start: 01-31-2023 Hemoglobin A1c measurement Diabetes: Hemoglobin A1C [facility] Start: 01-09-2023 Annual Wellness Visit (Medicare) Annual Wellness Visit (Medicare) [facility] Start: 12-02-2022 Glaucoma screening Diabetes: Retinopathy Screening [facility] Start: 09-30-2021 End: 09-30-2021 Patient encounter procedure 09/30/2021 Office Visit Cardiology Ej Foster MD [address] [place] [address] [place] [phone] [facility] Start: 03-10-2021 Creatinine measurement [facility] [place] Start: 03-10-2021 HbA1c (Bld) [Mass fraction] A1C test (Diabetic or Prediabetic) [facility] [place] Start: 03-10-2021 Hemoglobin A1c measurement A1C test (Diabetic or Prediabetic) [facility] Start: 03-10-2021 [facility] Start: 03-10-2021 Potassium monitoring Potassium monitoring [facility] [place] Start: 01-21-2021 Creatinine measurement Creatinine monitoring [email or web address] [place] Start: 01-21-2021 HbA1c (Bld) [Mass fraction] A1C test (Diabetic or Prediabetic) [facility] [place] Start: 01-21-2021 Potassium monitoring Potassium monitoring [facility] [place] Start: 10-14-2020 Influenza vaccination Flu vaccine (#1) [employer] Work Phone: Start: 09-16-2020 End: 09-16-2020 Office Visit 09/16/2020 Office Visit Cardiology Ej Foster MD [address] [address] [facility] Start: 03-10-2020 End: 03-10-2020 Office Visit 03/10/2020 Office Visit Cardiology Ej Foster MD [address] [address] [facility] Start: 02-21-2020 End: 02-21-2020 Office Visit 02/21/2020 Office Visit Cardiology Ej Foster MD [address] [address] [facility] Start: 01-30-2020 End: 01-30-2020 Office Visit 01/30/2020 Office Visit Cardiology Ej Foster MD [address] [address] [facility] Start: 12-11-2019 Annual Wellness Visit (AWV) Annual Wellness Visit (AWV) [place], [place] Start: 10-15-2019 Influenza vaccination Flu vaccine (#1) [place] Start: 2013 Pneumococcal 65+ years Vaccine (1 of 1 - PPSV23) Pneumococcal 65+ years Vaccine (1 of 1 - PPSV23) [place] Start: 2013 Pneumococcal 65+ years Vaccine (2 of 2 - PPSV23) Pneumococcal 65+ years Vaccine (2 of 2 - PPSV23) [place] Start: 07-17-2012 Shingles Vaccine (2 of 3) Shingles Vaccine (2 of 3) [facility] Start: 1998 Screening for malignant neoplasm of colon Colon cancer screen colonoscopy [place], [place] Start: 1998 Shingles Vaccine (1 of 2) Shingles Vaccine (1 of 2) [place] Start: 1993 Screening for malignant neoplasm of colon [facility] Start: 1988 Lipid panel Lipid screen [place] Start: 10-04-1967 DTaP/Tdap/Td vaccine (1 - Tdap) DTaP/Tdap/Td vaccine (1 - Tdap) [place] Start: 1966 Diabetic microalbuminuria test Diabetic microalbuminuria test [place] Start: 1966 Glaucoma screening Diabetic retinal exam [facility] Start: 1966 Hepatitis C screening Hepatitis C screen [facility] Start: 1966 Urine screening for protein Diabetic Alb to Cr ratio (uACR) test [facility] Start: 1960 Depression Screen Depression Screen [facility] Start: 1958 Diabetic foot examination Diabetic foot exam [facility] Start: 1958 Diabetic retinal exam Diabetic retinal exam [place], [place] Start: 1958 Lipid panel Lipid screen [place], [place] Start: 1948 Creatinine measurement Creatinine monitoring [place], [place] Start: 1948 Hepatitis C screening Hepatitis C screen [place], [place] Start: 1948 Potassium monitoring Potassium monitoring [place], [place] Start: 1948 Screening for malignant neoplasm of colon [facility] End: 02-23-2024 Cardioversion external [facility] Comment on above: 1 Occurrences starting 02/23/2024 until 02/23/2024 End: 02-12-2020 Catheterization and angiography procedure details panel Diagnostic Cardiac Chemical Dependency Nurse Procedure Cardiac Cath Routine One Time for 1 Occurrences starting 02/12/2020 until 02/12/2020 [place] Comment on above: One Time for 1 Occurrences starting 01/15 until 02/12/2020 Continuous pulse oximetry Pulse oximetry, continuous Respiratory Care Routine Every 4hr until discontinued starting 02/12/2020 [place] Comment on above: Every 4hr until discontinued starting End: 12-11-2019 Covid-19 Ambulatory Covid-19 Ambulatory Lab Routine Once for 1 Occurrences starting 12/11/2019 until 12/11/2019 [facility]: Once for 1 Occurrences starting 12/11/19 20 until 12/11/2019 Covid-19 Ambulatory Covid-19 Amb ulatory Lab Routine 12/11/2019 2:27 PM EDT [facility] Lead EKG 12 Lead ECG Routine 02/12/2020 8:26 AM [facility] End: 02-12-2020 End Tidal CO2 Continuous End Tidal CO2 Continuous Respiratory Care Routine Continuous until discontinued starting 02/12/2020 [facility] [place] Comment on above: Continuous until discontinued starting 1 End: 02-23-2024 Extended cardiac holter monitor (3 day-14 day) [facility] [employer] Comment on above: One Time for 1 Occurrences starting 02/13 until 02/23/2024 End: 02-05-2024 Extended cardiac holter monitor (3 days-14 day) [facility] [employer] Comment on above: 1 Occurrences starting 02/05/2024 until 02/05/2024 End: 02-26-2024 Extended cardiac holter monitor (3 days-14 day) [facility] [employer] Comment on above: 1 Occurrences starting 02/26/2024 until 02/26/2024 End: 03-10-2020 HbA1c (Bld) [Mass fraction] Hemoglobin A1C Lab Routine Controlled type 2 diabetes mellitus with hyperglycemia, without long-term current use of insulin ([facility]) 1 Occurrences starting 03/10/2020 until 03/10/2020 [facility] [place] Comment on above: 1 Occurrences starting 03/10/2020 until 03/10/2020 HbA1c (Bld) [Mass fraction] Hemoglobin A1C Lab Routine Controlled type 2 diabetes mellitus with hyperglycemia, without long-term current use of insulin ([facility]) 03/10/2020 12:35 PM [facility] End: 02-23-2024 INITIATE PACU OXYGEN THERAPY PROTOCOL Initiate PACU Oxygen Therapy Protocol Respiratory Care Routine Continuous until discontinued starting 02/23/2024 [facility] [employer] Comment on above: Continuous until discontinued starting 0 02/23/2024 Oxygen therapy [Mini mum Data Set] Initiate Oxygen Therapy Protocol Respiratory Care Routine Daily until discontinued starting 02/12/2020 [place] Comment on above: Daily until discontinued starting 2019 End: 03-10-2020 VL LOWER EXTREMITY ARTERIAL SEGMENTAL PRESSURES W PPG VL LOWER EXTREMITY ARTERIAL SEGMENTAL PRESSURES W PPG Imaging STAT Pain in both lower extremities PVD (peripheral vascular disease) ([facility]) 1 Occurrences starting 03/10/2020 until 03/10/2020 [place] Comment on above: 1 Occurrences starting 03/10/2020 until 03/10/2020 VL LOWER EXTREMITY ARTERIAL SEGMENTAL PRESSURES W PPG VL LOWER EXTREMITY ARTERIAL SEGMENTAL PRESSURES W PPG Imaging STAT Pain in both lower extremities PVD (peripheral vascular disease) ([facility]) 03/10/2020 1:24 PM EST [place] Immunizations Immunization Date Immunization Notes Care Provider [facility] 11-21-2023 influenza, high dose seasonal, preservative-free Kenia Castillo [employer] WORK[employer] Work Phone: [facility] 11-21-2023 Pneumococcal Conjuga te PCV 20 Kenia Castillo [employer] WORK[employer] Work Phone: [facility] 11-21-2023 SARS-COV-2 (COVID-19 ) vaccine, mRNA, spike protein, LNP, PF, 50 mcg/0.5 mL Kenia Castillo [employer] WORK[employer] Work Phone: [facility] 12-05-2022 RSV, recombinant, pr otein subunit RSVpreF, adjuvant reconstitu, 120mcg/0.5mL, PF (Arexvy) Kenia Castillo [employer] WORK[employer] Work Phone: [facility] 12-02-2022 pneumococcal polysaccharide vaccine, 23 valent Yuliya Romero PT Work Phone: [facility] 11-01-2022 influenza, high dose seasonal, preservative-free Yuliya Romero PT Work Phone: [facility] 11-01-2022 influenza virus vacc ine, unspecified formulation Kenia Castillo [employer] WORKER Work Phone: [facility] 11-01-2021 Influenza, Seasonal, Quadrivalent, Adjuvanted Yuliya Romero PT Work Phone: [facility] 11-01-2021 SARS-COV-2 (COVID-19 ) vaccine, mRNA, spike protein, LNP, bivalent, preservative free, 30 mcg/0.3 mL dose, mauro-sucrose formulation Yuliya Romero PT Work Phone: [facility] 11-01-2021 SARS-CoV-2, Unspecified Jamie Romero PT Work Phone: [facility] 10-30-2021 Influenza, High-dose Seasonal, Quadrivalent, Preservative Free Yuliya Romero PT Work Phone: [facility] 11-12-2020 Influenza, High-dose Seasonal, Quadrivalent, Preservative Free Yuliya Romero PT Work Phone: [facility] 11-11-2020 Influenza, High-dose Seasonal, Quadrivalent, Preservative Free Yuliya Romero PT Work Phone: [facility] 11-11-2020 Pfizer Purple Cap SARS-CoV-2 Vaccination Yuliya Romero PT Work Phone: [facility] 04-12-2020 Pfizer Purple Cap SARS-CoV-2 Vaccination Yuliya Romero PT Work Phone: [facility] 03-19-2020 Pfizer Purple Cap SARS-CoV-2 Vaccination Yuliya Romero PT Work Phone: [facility] 11-28-2019 influenza, injectabl e, quadrivalent, preservative free Yuliya Romero PT Work Phone: [facility] 11-28-2018 influenza, injectabl e, quadrivalent, preservative free Yuliya Romero PT Work Phone: [facility] 11-28-2018 tetanus toxoid, redu hiral diphtheria toxoid, and acellular pertussis vaccine, adsorbed Yuliya Romero PT Work Phone: [facility] 11-27-2018 influenza, high dose seasonal, preservative-free Yuliya Maryton PT Work Phone: [facility] 11-27-2017 influenza, high dose seasonal, preservative-free Yuliya Maryton PT Work Phone: [facility] 11-27-2017 Influenza, High-dose Seasonal, Quadrivalent, Preservative Free Yuliya Trisha PT Work Phone: [facility] 11-22-2016 influenza, injectabl e, quadrivalent, contains preservative Yuliya Trisha PT Work Phone: [facility] 11-22-2016 influenza, injectabl e, quadrivalent, preservative free Yuliya Maryton PT Work Phone: [facility] 07-29-2015 pneumococcal conjuga te vaccine, 13 valent Yuliya Romero PT Work Phone: [facility] 01-21-2015 influenza, seasonal, injectable, preservative free Yuliya Trisha PT Work Phone: [facility] 12-11-2013 influenza, injectabl e, quadrivalent, preservative free Yuliya Trisha PT Work Phone: [facility] 03-13-2013 influenza, seasonal, injectable Yuliya Maryton PT Work Phone: [facility] 03-13-2013 influenza, seasonal, injectable, preservative free Yuliya Trisha PT Work Phone: [facility] 03-13-2013 pneumococcal polysaccharide vaccine, 23 valent Yuliya Romero PT Work Phone: [facility] 05-22-2012 zoster vaccine, live Yuliya Romero PT Work Phone: [facility] 02-02-2012 influenza, seasonal, injectable Yuliya Trisha PT Work Phone: [facility] Payers Date Payer Category Payer Self-pay 2023 Medicare [id number] 2023 Medicare (Managed Care) [facility] MEDICARE [id number] 2023 [facility] Insurance [facility] [id number] 2023 Medicare [id number] 2023 Unknown [id number] [id number]. [id number] 1959 Medicare [id number]. [id number] 1959 Unknown [id number] 1948 Unknown [id number] 2.16.840.1.935429.3.579.2. 593 1948 Unknown [id number] 2.16.840.1.038364.3.579.2. 1286 1948 Unknown [id number] 2.16.840.1.903312.3.579.2. 1286 1948 Unknown [id number] 2.16.840.1.263661.3.579.2. 1286 1948 Unknown [id number] 2.16.840.1.236589.3.579.2. 196 1948 Unknown [id number] 2.16840.1.817251.3.579.2. 196 1948 Unknown [id number] 2.16.840.1.307504.3.579.2. 196 1948 Unknown [id number] 2.16840.1.863824.3.579.2. 196 1948 Unknown [id number] 2.16840.1.313841.3.579.2. 125 1948 Unknown [id number] 2.840.1.560275.3.579.2. 125 1948 Unknown [id number] 2.16840.1.608115.3.579.2. 125 1948 Unknown [id number] 2.16840.1.626862.3.579.2. 125 1948 Unknown [id number] 2.16840.1.045804.3.579.2. 1259 1948 Unknown [id number] 2.16840.1.721354.3.579.2. 125 1948 Unknown [id number] 2.16.840.1.402747.3.579.2. 125 1948 Unknown [id number] 2.16.840.1.980227.3.579.2. 125 1948 Unknown [id number] 2.16.840.1.112556.3.579.2. 1259 1948 Unknown [id number] 2.16.840.1.858824.3.579.2. 1259 1948 Unknown [id number] 2.16.840.1.843875.3.579.2. 1259 1948 Unknown [id number] 2.16.840.1.208633.3.579.2. 1259 1948 Unknown [id number] 2.16.840.1.935208.3.579.2. 1259 1948 Unknown [id number] 2.16.840.1.582773.3.579.2. 1259 1948 Unknown [id number] 2.16.840.1.459204.3.579.2. 1259 1948 Unknown [id number] 2.16.840.1.911814.3.579.2. 1259 1948 Unknown [id number] 2.16.840.1.829530.3.579.2. 125 1948 Unknown [id number] 2.16.840.1.062035.3.579.2. 1259 1948 Unknown [id number] 2.16.840.1.570534.3.579.2. 1259 1948 Unknown [id number] 2.16.840.1.905809.3.579.2. 1259 1948 Unknown [id number] 2.16.840.1.798578.3.579.2. 1259 1948 Unknown [id number] 2.16.840.1.207298.3.579.2. 1259 1948 Unknown [id number] 2.16.840.1.066565.3.579.2. 1259 1948 Unknown [id number] 2.16.840.1.372724.3.579.2. 1259 1948 Unknown [id number] 2.16.840.1.621172.3.579.2. 173 1948 Unknown [id number] 2.16.840.1.577217.3.579.2. 173 1948 Unknown [id number] 2.16.840.1.193075.3.579.2. 173 1948 Unknown [id number] 2.16.840.1.995515.3.579.2. 173 Unknown [id number] 2.16.840.1.231037.3.579.2. 531 Social History Date Type Detail Facility Tobacco smoking stat us [facility] Unknown if ever smoked [place], [place] Start: 1950 Sex Assigned At Not on file [place] Start: 01-22-2020 End: 08-30-2021 Tobacco smoking status NHIS Never smoker [place] Start: 01-22-2020 End: 08-30-2021 Tobacco use and exposure Never used [place] Start: 03-10-2020 End: 02-23-2024 Alcohol intake Current drinker of alcohol (finding) [place] Start: 02-12-2020 Alcohol Comment having had sin ce December [place] Exposure to SARS-CoV -2 (event) Not sure [place] Start: 09-16-2020 End: 02-23-2024 Alcohol intake [facility] Work Phone: Start: 03-14-2023 End: 02-23-2024 Tobacco use panel [facility] Start: 10-25-2022 Alcohol Comment drinks alcohol 2-3 times a week [facility] Start: 1950 Sex Assigned At Male F [facility] How often to you hav [...] intak e: 12 oz daily [facility] Start: 09-19-2023 Alcohol Comment caffeine intak e: 2 cups daily [facility] Start: 02-23-2024 Alcohol Comment occasional [facility] Clinical Notes 09-23-2020 to 02-23-2024 Jannet Martinez RN - 02/23/2024 12:42 PM Jannet Gardner RN - 02/23/2024 12:41 PM Ej Elmore MD - 02/23/2024 12:00 PM ESTDischarge Adina CastilloKIERA - 02/20/2024 2:00 PM EST Note Date & Type Note Facility 02-23-2024 History of Present illness Narrative IV Sedation Discharge Criteria Inpatients must meet Criteria 1 through 7. All other patients are either YES or N/A. If a NO is chosen then Surgeon must be notified. 1. Minimum 30 minutes after last dose of sedative medication, minimum 120 minutes after last dose of reversal agent. Yes 2. Systolic BP stable within 20 mmHg for 30 minutes & systolic BP between 90 & 180 or within 10 mmHg of baseline. Yes 3. Pulse between 60 and 100 or within 10 bpm of baseline. Yes 4. Spontaneous respiratory rate >/= 10 per minute. Yes 5. SaO2 >/= 95 or >/= baseline. Yes 6. Able to cough and swallow or return to baseline function. Yes 7. Alert and oriented or return to baseline mental status. Yes 8. Demonstrates controlled, coordinated movements, ambulates with steady gait, or return to baseline activity function. Yes 9. Minimal or no pain or nausea, or at a level tolerable and acceptable to patient. Yes 10. Takes and retains oral fluids as allowed. Yes 11. Procedural / perioperative site stable. Minimal or no bleeding. Yes 12. If GI endoscopy procedure, minimal or no abdominal distention or passing flatus. N/A 13. Written discharge instructions and emergency telephone number provided. Yes 14. Accompanied by a responsible adult. Yes All discharge instructions given. All questions answered at this time. All belongings returned. Images from the original note were not included. Mr. Winters Date of : 1950 [id number] Procedure: Cardioversion Pre-operative Diagnosis: Persistent atrial fibrillation, symptomatic Post-operative Diagnosis: Successful cardioversion to NSR with 300J biphasic Anesthesia: General Anesthesia. Provided by our anesthesia team. Procedure: The procedure was done in the [facility] Dependency Nurse. Benefits, risks and alternatives were explained to the patient and he agreed to proceed. Informed consent obtained. A separate informed consent obtained by our anesthesia team. Timeout obtained by the Chemical Dependency Nurse nurse. The defibrillator pads were attached in anteroposterior position. Once adequate sedation obtained, an initial 200 J synchronized shock was delivered that did not convert patient to sinus rhythm. A second 300 J synchronized shock was delivered in a standard manner and patient converted to normal sinus rhythm. Patient maintained excellent hemodynamics and O2 saturation throughout the procedure. Surgeons/Assistants: Cristian Estimated Blood Loss: None Complications: None I ordered an extended heart monitor prior to discharge. Decreased his Toprol-XL to 25 mg daily and started him on oral amiodarone 200 mg daily to maintain sinus rhythm. Instructed to continue all other cardiac medications. Ej Foster MD, MS, F.A.C.[facility], [place] [address] , documented in this encounter [facility] 02-23-2024 Hospital Discharge instructions Jannet Martinez RN - 02/23/2024 12:32 PM EST Images from the original note were not included. Electrical Cardioversion: What to Expect at Home [...] the heart beat normally and to prevent blood clots. This care sheet gives you a general idea about how long it will take for you to recover. Follow the steps below to feel better as quickly as [...] doctor prescribes. Do not take any vitamins, lkib-gaj-wlezfsk medicines, or herbal products without talking to your doctor first. Exercise Start light exercise if your doctor says that it is okay. Walking is an easy way to get exercise. You should be able to talk while you are exercising. If you become short of breath or dizzy or have chest pain, sit down and rest right away. [...] a good idea to know your test results and keep a list of the medicines you [...] or uneven pulse. After calling 911, the welding machine operator plasma arc may tell you to chew 1 adult-strength [...] Where can you learn more? Go to [email or web address] and sign in to your [employer] account. Enter A617 in the Search Health Information box to learn more about Electrical Cardioversion: What to Expect at Home. If you do not have an account, please click on the Sign Up Now link. [employer]. Care instructions adapted under license by [employer]. This care instruction is for use with your licensed healthcare professional. If you have questions about a medical condition or this instruction, always ask your healthcare professional. [employer] disclaims any warranty or liability for your use of this information. Content Version: 10.6.184337; Current as of: April 04, 2014 documented in this encounter [facility] 02-20-2024 History of Present illness Narrative Images from the original note were not included. Zaina Winters is a 73 y.o. male presents with chief complaint of Medicare Annual Wellness Visit Subsequent HPI: HPI Getting an ablation on , having a procedure done by pain management soon sees pain management at [facility]. Send results to Dr. Mata at [facility] Has an appointment with phil tracey in March in [place]. Not using cpap tried different mask couldn't tolerate it sent it back. Over the past 2 weeks, how often have you been bothered by any of the following problems? Trouble falling or staying asleep, or sleeping too much: Nearly every day Feeling tired or having little energy: Several days Poor appetite or overeating: Not at all Feeling bad about yourself - or that you are a failure or have let yourself or your family down: Not at all Trouble concentrating on things, such as reading the newspaper or watching television: Not at all Moving or speaking so slowly that other people could have noticed? Or the opposite - being so fidgety or restless that you have been moving around a lot more than usual.: Not at all Thoughts that you would be better off or hurting yourself in some way: Not at all Patel Fall Risk History of Falling, Immediate or Within 3 Months: No Health Risk Assessment Form Do you need help eating, bathing, using the toilet, dressing, or getting around your home?: No Can you prepare your own meals?: Yes Can you do your own housework without help?: Yes Can you shop for groceries or clothes without help?: Yes Do you exercise for about 20 minutes 3 or more days a week?: No (does streches.) How confident are you that you can control and manage most of your health problems?: Very confident Can you mange your money, credit cards and accounts, pay bills and taxes?: Yes Cognitive Screening Three Word Registration: Leader, Irish, Table Clock Drawing: Normal Clock - 2 Three Word Recall: All 3 words correct - 3 Total Score (0-5 Points): 5 SUBJECTIVE: MEDICATIONS: Current Outpatient Medications Medication Instructions allopurinol (ZYLOPRIM) 100 mg, Oral, Every morning amitriptyline (ELAVIL) 10 mg, Oral, Nightly apixaban (Eliquis) 5 MG tablet TAKE 1 TABLET IN THE MORNING AND 1 TABLET BEFORE BEDTIME atorvastatin (LIPITOR) 10 mg, Oral, Every morning baclofen (LIORESAL) 10 mg, 3 times daily Bioflavonoid Products (VITAMIN C PLUS PO) Take by mouth cyclobenzaprine (FLEXERIL) 10 mg, 3 times daily PRN gabapentin (NEURONTIN) 300 mg, 2 times daily guaiFENesin (MUCINEX) 1,200 mg, Oral, 2 times daily, Do not crush, chew, or split. HYDROcodone-acetaminophen (Anmoore) 5-325 MG tablet 1 tablet, 2 times daily PRN losartan-hydroCHLOROthiazide (Hyzaar) 50-12.5 MG tablet 1 tablet, Oral, Every morning metFORMIN (Glucophage) 500 MG tablet TAKE 1 TABLET IN THE MORNING AND 1 TABLET IN THE EVENING WITH MEALS metoprolol tartrate (LOPRESSOR) 12.5 mg, Oral, 2 times daily, Taking half a tablet in the morning and evening. omeprazole (PriLOSEC) [address] capsule TAKE 1 CAPSULE EVERY MORNING BEFORE A MEAL rOPINIRole (REQUIP) 1 mg, Oral, Nightly tamsulosin (Flomax) 0.4 MG 24 hr capsule TAKE 1 CAPSULE IN THE MORNING VITAMIN D, CHOLECALCIFEROL, PO Vitamin D REVIEW OF SYMPTOMS: Review of Systems Constitutional: Negative. HENT: Negative. Eyes: Negative. Respiratory: Negative. Cardiovascular: Negative. Gastrointestinal: Negative. Genitourinary: Negative. Musculoskeletal: Negative. Skin: Negative. Neurological: Negative. OBJECTIVE: Visit Vitals BP 120/60 (BP Location: Left arm, Patient Position: Sitting, BP Cuff Size: Large adult) Pulse 98 Ht 5' 11.5 Wt 313 lb 3.2 oz SpO2 95% BMI 43.07 kg/m Smoking Status Never BSA 2.68 m Physical Exam Vitals reviewed. Constitutional: Appearance: He is obese. HENT: Head: Normocephalic and atraumatic. Right Ear: Tympanic membrane normal. Left Ear: Tympanic membrane normal. Nose: Nose normal. Mouth/Throat: Mouth: Mucous membranes are moist. Eyes: Extraocular Movements: Extraocular movements intact. Pupils: Pupils are equal, round, and reactive to light. Cardiovascular: Rate and Rhythm: Normal rate. Rhythm irregular. Pulses: Normal pulses. Heart sounds: Normal heart sounds. Pulmonary: Effort: Pulmonary effort is normal. Breath sounds: Normal breath sounds. Abdominal: General: Bowel sounds are normal. Palpations: Abdomen is soft. Tenderness: There is no abdominal tenderness. Musculoskeletal: General: Normal range of motion. Cervical back: Normal range of motion and neck supple. Right lower leg: Edema present. Left lower leg: Edema present. Comments: Nonpitting edema Skin: General: Skin is warm and dry. Capillary Refill: Capillary refill takes less than 2 seconds. Findings: No rash. Neurological: General: No focal deficit present. Mental Status: He is alert and oriented to person, place, and time. ASSESSMENT AND PLAN: Assessment/Plan Diagnoses and all orders for this visit: Encounter for wellness examination - Hemoglobin A1c; Future - Comprehensive metabolic panel; Future - PSA; Future - Microalbumin / creatinine, urine ratio; Future - Lipid panel; Future -Discussed height, weight and BMI. Encouraged healthy diet and regular exercise. Discussed vaccines and encouraged yearly flu shot. Annual eye and dental exam. Vaccines and cancer screens reviewed for completeness. Screen labs as needed. Assessed needs for tools in the home for independence. Living will and durable power of business attorney reviewed. Updated patient problem list and reviewed all current medications with patient. Given time to ask questions. Mixed hyperlipidemia (CMS/HCC) - Lipid panel; Future -On a statin Primary hypertension (CMS/HCC) - Comprehensive metabolic panel; Future - Lipid panel; Future -Discussed current management plan. Goal BP less then 130/80. Discussed heart healthy diet, increase fruits and vegetables, limit salt intake. Encouraged increase physical exercise, try to be as active as possible at least 150 mins per week. Importance of weight management with a goal BMI less then 27 discussed. Discussed complications of uncontrolled blood pressure. Patient instructed to monitor BP's 1-2 times a week, keep a log, and bring to next visit. Barriers to care and medication compliance discussed. Patient voices understanding of meds. Type 2 diabetes mellitus with other specified complication, without long-term current use of insulin (CMS/HCC) - Hemoglobin A1c; Future - Comprehensive metabolic panel; Future - Microalbumin / creatinine, urine ratio; Future - Lipid panel; Future -Diabetic protocols reviewed. Discussed and updated current management plan. Addressed barriers to care, diet, exercise plan and blood sugar testing. Education provided for medications. Goal A1C <7 and BP <130/80 for suboptimally controlled diabetes. I have encouraged patient to check feet regularly and to see ophthomololgist annually. I have discussed the need for regular testing and follow up. We will recheck an A1C every 3 months and microalbumin yearly. Discussed complications which could include blindness, heart disease and kidney disease. 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 Avoid triggers such as caffeine, ETOH, spicy foods. Avoid supine position 2-3 hours after eating. Elevate HOB. Paroxysmal atrial fibrillation (CMS/HCC) -On eliquis, scheduled for ablation later this week POOL (obstructive sleep apnea) - Ambulatory referral to Sleep Medicine; Future -The patient was counseled on the risks of stroke, Ml, and sudden with POOL, along with the need for compliance with CPAP/BiPAP treatment. Will refer to Sleep Medicine for further evaluation. Peripheral edema -Encouraged compression stockings to BLE PVD (peripheral vascular disease) (CMS/HCC) -Encouraged compression stockings to BLE Lumbar radiculopathy -Followed by pain management Restless legs syndrome -Stable Type 2 diabetes mellitus with diabetic peripheral angiopathy without gangrene, without long-term current use of insulin (CMS/HCC) Insomnia, unspecified type -Stable Morbid (severe) obesity due to excess calories (CMS/HCC) Colon cancer screening declined Screening PSA (prostate specific antigen) - PSA; Future Benign prostatic hyperplasia with lower urinary tract symptoms, symptom details unspecified -Stable Body mass index (BMI) 40.0-44.9, adult ([facility]) documented in this encounter [facility] 01-01-2024 Telephone encounter Note Sent prescription. [facility] 01-01-2024 Miscellaneous Notes Sent prescription. Informed patient that [facility] and he states I told her those don't work for me He wants you to send something stronger. [facility] Addended by: RHONA HERRERA on: 12/29/2023 10:45 AM Modules accepted: [facility] [place]. I believe the tessalon perles were sent. Patient was seen on 12/25 and has been taking otc cough syrup and it is not helping at all. He is requesting a prescription for cough syrup sent to [facility] in [place]. Ty documented in this encounter [facility] 01-01-2024 History of Present illness Narrative Prescription sent documented in this encounter [facility] 12-29-2023 Telephone encounter Note I sent in a few days of steroids to help with cough [facility] 12-29-2023 Miscellaneous Notes I sent in a few days of steroids to help with cough Can something else be sent in for pt to help with cough other than lucio tolbert? Please contact pt with response. [facility] [place] documented in this encounter [facility] 12-29-2023 Telephone encounter Note Can something else be sent in for pt to help with cough other than lucio tolbert? Please contact pt with response. [facility] [place] [facility] 12-29-2023 Telephone encounter Note Informed patient that [facility] and he states I told her those don't work for me He wants you to send something stronger. [facility] 12-29-2023 Telephone encounter Note [facility] 12-29-2023 History of Present illness Narrative Prescription sent documented in this encounter [facility] 12-29-2023 Note Addended by: Mirna HERRERA on: 12/29/2023 10:45 AM Modules accepted: Orders [facility] 12-29-2023 Telephone encounter Note [facility] [place]. I believe the tessalon perles were sent. [facility] 12-28-2023 History of Present illness Narrative Prescription sent documented in this encounter [facility] 12-28-2023 Telephone encounter Note Patient was seen on 12/25 and has been taking otc cough syrup and it is not helping at all. He is requesting a prescription for cough syrup sent to [facility] in [place]. [facility] 12-26-2023 History of Present illness Narrative Images from the original note were not included. Zaina Winters is a 73 y.o. male presents with chief complaint of Cough HPI: HPI Patient is present with c/o sore throat and cough that started this past . Patient states his cough is dry and he is blowing out yellow mucus when blowing his nose. Patient states he had polio as a kid and this affects his lungs. SUBJECTIVE: MEDICATIONS: Current Outpatient Medications Medication Instructions allopurinol (ZYLOPRIM) 100 mg, Oral, Every morning amitriptyline (ELAVIL) 10 mg, Oral, Nightly apixaban (Eliquis) 5 MG tablet TAKE 1 TABLET IN THE MORNING AND 1 TABLET BEFORE BEDTIME atorvastatin (LIPITOR) 10 mg, Oral, Every morning baclofen (LIORESAL) 10 mg, Oral, 3 times daily Bioflavonoid Products (VITAMIN C PLUS PO) Oral cyclobenzaprine (FLEXERIL) 10 mg, Oral, 3 times daily PRN HYDROcodone-acetaminophen (Anmoore) 5-325 MG tablet 1 tablet, Oral, 2 times daily PRN losartan-hydroCHLOROthiazide (Hyzaar) 50-12.5 MG tablet 1 tablet, Oral, Every morning metFORMIN (Glucophage) 500 MG tablet TAKE 1 TABLET IN THE MORNING AND 1 TABLET IN THE EVENING WITH MEALS metoprolol tartrate (LOPRESSOR) 12.5 mg, Oral, 2 times daily, Taking half a tablet in the morning and evening. omeprazole (PriLOSEC) [address] capsule TAKE 1 CAPSULE EVERY MORNING BEFORE A MEAL rOPINIRole (REQUIP) 1 mg, Oral, Nightly tamsulosin (Flomax) 0.4 MG 24 hr capsule TAKE 1 CAPSULE IN THE MORNING VITAMIN D, CHOLECALCIFEROL, PO Vitamin D I have reviewed and reconciled the history and medication list with the patient today. REVIEW OF SYMPTOMS: Review of Systems Constitutional: Positive for fatigue. HENT: Positive for congestion, ear pain and sinus pressure. Respiratory: Positive for cough and wheezing. Cardiovascular: Negative for palpitations. Gastrointestinal: Negative. Genitourinary: Negative. Musculoskeletal: Negative. Skin: Negative. Neurological: Negative. OBJECTIVE: Visit Vitals Smoking Status Never Physical Exam Vitals and nursing note reviewed. Constitutional: Appearance: He is well-developed. HENT: Head: Normocephalic. Right Ear: Hearing normal. Tympanic membrane is injected. Left Ear: Hearing normal. Nose: Congestion and rhinorrhea present. Mouth/Throat: Mouth: Mucous membranes are moist. Pharynx: Posterior oropharyngeal erythema present. No oropharyngeal exudate. Tonsils: No tonsillar exudate. Cardiovascular: Rate and Rhythm: Normal rate and regular rhythm. Heart sounds: Normal heart sounds. Pulmonary: Effort: Pulmonary effort is normal. Breath sounds: Decreased air movement present. Examination of the right-lower field reveals decreased breath sounds. Examination of the left-lower field reveals decreased breath sounds. Decreased breath sounds present. Abdominal: General: Abdomen is flat. There is no distension. Tenderness: There is no abdominal tenderness. Musculoskeletal: Cervical back: Neck supple. Lymphadenopathy: Cervical: Right cervical: No superficial cervical adenopathy. Left cervical: No superficial cervical adenopathy. Skin: General: Skin is warm. Capillary Refill: Capillary refill takes less than 2 seconds. Neurological: General: No focal deficit present. Mental Status: He is alert and oriented to person, place, and time. ASSESSMENT AND PLAN: Assessment/Plan Diagnoses and all orders for this visit: Acute right otitis media - amoxicillin-clavulanate (Augmentin) 500-125 MG tablet; Take 1 tablet (500 mg) by mouth in the morning and 1 tablet (500 mg) before bedtime. Do all this for 10 days. Bronchitis - albuterol HFA 90 mcg/act inhaler; Inhale 2 puffs every 4 (four) hours if needed for wheezing Patient will seek immediate medical attention if symptoms worsen documented in this encounter [facility] 12-21-2023 Telephone encounter Note Quentin called - was in for ear infection etc last week . Now he hs it - he's asking if you would just send in what you gave her . [facility] 12-21-2023 Miscellaneous Notes Quentin called - was in for ear infection etc last week . Now he hs it - he's asking if you would just send in what you gave her . documented in this encounter [facility] 11-15-2023 History of Present illness Narrative Images [...] day as needed, Disp: , Rfl: HYDROcodone-acetaminophen (Anmoore) 5-325 MG tablet, Take 1 tablet by [...] corrected. Thank you for your understanding. Arianna Lou DPM documented in this encounter [facility] 11-15-2023 Instructions Arianna Lou DPM - 11/15/2023 1:00 PM EDT As noted documented in this encounter [facility] 10-23-2023 Telephone encounter Note Patient is calling for refills. He is asking for 90 day supply sent to [facility] 10-23-2023 Miscellaneous Notes Patient is calling for refills. He is asking for 90 day supply sent to [facility] documented in this encounter [facility] 10-11-2023 History of Present illness Narrative Images from the original note were not included. Zaina Winters is a 73 y.o. male presents with chief complaint of Establish Care HPI: Patient fell and hit his face 8 months ago and banged his teeth. So he went to [facility] about 6-8 months ago and they told him that he needs to get all his bottom teeth out but need clearance. He said he wants to get it done after he has his back done October 22. He would like to get some pain medication since his gums are in constant pain that started yesterday. He had one injection on his back, states it didn't work and he goes back to pain management again for another procedure . SUBJECTIVE: MEDICATIONS: ALLERGIES Current Outpatient Medications Medication Instructions allopurinol (ZYLOPRIM) 100 mg, Oral, Every morning amitriptyline (ELAVIL) 10 mg, Oral, Nightly apixaban (ELIQUIS) 5 mg, Oral, 2 times daily atorvastatin (LIPITOR) 10 mg, Oral, Every morning baclofen (LIORESAL) 10 mg, Oral, 3 times daily Bioflavonoid Products (VITAMIN C PLUS PO) Oral cyclobenzaprine (FLEXERIL) 10 mg, Oral, 3 times daily PRN HYDROcodone-acetaminophen (Anmoore) 5-325 MG tablet 1 tablet, Oral, 2 times daily PRN losartan-hydroCHLOROthiazide (Hyzaar) 50-12.5 MG tablet 1 tablet, Oral, Every morning metFORMIN (Glucophage) 500 MG tablet TAKE 1 TABLET IN THE MORNING AND 1 TABLET IN THE EVENING WITH MEALS metoprolol tartrate (LOPRESSOR) 12.5 mg, Oral, 2 times daily, Taking half a tablet in the morning and evening. omeprazole (PRILOSEC) 20 mg, Oral, Daily before breakfast, Do not crush or chew. rOPINIRole (REQUIP) 1 mg, Oral, Nightly tamsulosin (Flomax) 0.4 MG 24 hr capsule TAKE 1 CAPSULE IN THE MORNING VITAMIN D, CHOLECALCIFEROL, PO Vitamin D No Known Allergies PAST MEDICAL HISTORY: SOCIAL HISTORY SURGICAL HISTORY: Past Medical History: Diagnosis Date Acid reflux Acquired leg length discrepancy 05/26/2021 Arthritis Artificial knee joint present 03/03/2021 Atrial fibrillation (CMS/HCC) Chronic gouty arthritis 07/29/2015 COVID-19 Difficulty walking 03/07/2021 Elevated blood sugar Erectile dysfunction GERD without esophagitis 07/18/2022 Gout History of poliomyelitis Hx of gout Hyperlipidemia ([facility]) Hypertension ([facility]) 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 07/18/2022 New onset a-fib ([facility]) Paroxysmal atrial fibrillation ([facility]) 12/17/2019 Peripheral edema 11/28/2018 Polio 07/29/2015 [id number] condition 04/27/2020 Primary osteoarthritis involving multiple joints 10/04/2022 Psoriasis ([facility]) 06/26/2017 PVD (peripheral vascular disease) ([facility]) 08/30/2021 Restless legs Restless legs syndrome 07/28/2022 Vitamin D deficiency 05/14/2020 Social History Tobacco Use Smoking status: Never Smokeless tobacco: Never Vaping Use Vaping status: Never Used Substance Use Topics Alcohol use: Yes Alcohol/week: 3.0 standard drinks of alcohol Types: 3 Standard drinks or equivalent per week Comment: caffeine intake: 12 oz daily Drug use: Never Past Surgical History: Procedure Laterality Date CARDIOVERSION LUMBAR DISC SURGERY TOTAL KNEE ARTHROPLASTY Bilateral 2021 REVIEW OF SYMPTOMS: Review of Systems All other systems reviewed and are negative. OBJECTIVE: Vitals: 10/11/23 0858 Temp: 96.7 F Physical Exam Vitals reviewed. Constitutional: Appearance: He is obese. HENT: Head: Normocephalic and atraumatic. Nose: Nose normal. Mouth/Throat: Mouth: Mucous membranes are moist. Dentition: Dental abscesses present. Eyes: Pupils: Pupils are equal, round, and reactive to light. Cardiovascular: Rate and Rhythm: Normal rate and regular rhythm. Pulses: Normal pulses. Heart sounds: Normal heart sounds. Pulmonary: Effort: Pulmonary effort is normal. Breath sounds: Normal breath sounds. Musculoskeletal: Cervical back: Normal range of motion and neck supple. Skin: General: Skin is warm and dry. Capillary Refill: Capillary refill takes less than 2 seconds. Findings: No rash. Neurological: General: No focal deficit present. Mental Status: He is alert and oriented to person, place, and time. ASSESSMENT AND PLAN: Assessment/Plan Diagnoses and all orders for this visit: Dental abscess - clindamycin (Cleocin) 300 MG capsule; Take 1 capsule (300 mg) by mouth in the morning and 1 capsule (300 mg) in the evening and 1 capsule (300 mg) before bedtime. Do all this for 10 days. -Initiate clindamycin. Follow-up with dentist. Instructed patient to schedule with Dr. Adam for surgical clearance once he gets surgery date. documented in this encounter [facility] 03-30-2023 Telephone encounter Note 04/05 @ 1:00 pm . [facility] 03-30-2023 Miscellaneous Notes 04/05 @ 1:00 pm . So that reference # does nothing? His eval was 2/8, and is it noted per [facility] to continue, auth is needed? Would it be ok to schedule? documented in this encounter [facility] 03-30-2023 Telephone encounter Note So that reference # does nothing? His eval was 2/8, and is it noted per [facility] to continue, auth is needed? [facility] 03-30-2023 Telephone encounter Note Would it be ok to schedule? [facility] 03-29-2023 Telephone encounter Note Pt cx PT out. [facility] 03-29-2023 Miscellaneous Notes Pt cx PT out. documented in this encounter [facility] 09-20-2021 Note [id number]#1.00[facility] 09-20-2021 Note [id number]#1.00[facility] 09-18-2021 Note Education Materials POST OPERATIVE TOTAL KNEE/HIP DISCHARGE INTRUCTIONS SURGEONS WRITTEN INSTRUCTIONS: Walk with walker; bear weight to tolerance on operative extremity Elevate extremity 1 hour 3 times/day to control pain and swelling and apply cyrocuff Range of motion to ankle 10 times/hour Range of motion to knee hourly Change dressing daily. Reapply silver dressing for next four days then discontinue Cali hose (compression stockings) for 6 weeks Physical [...] #8 follow up in office with physician psych assistant Justo Redd as scheduled #9 [facility] [...] to the nearest hospital's emergency services department. [facility] 09-18-2021 Note [facility] Clinical Discharge Summary PERSON INFORMATION Name ZAINA WINTERS Age 70 Years 1950 Sex MALE Language Guyanese PCP Tonja ERNANDEZ, Jeannine Alfonso Marital Status Med Service Observation Acct# Arrival 09/17/2021 08:03:00 Visit Reason SURGERY-RIGHT TOTAL KNEE (GABRIELA) Acuity LOS 000 26:09 Address: [address] [facility] [address] Comment: PROVIDER INFORMATION VITALS INFORMATION Vital Sign [...] range between ( 1.3 and 2.9 ) [place] Abs#: 1.3 x103/mcL -- Normal range between ( 0.0 and 0.8 ) Auto Baso %: 0.0 % -- Normal range between ( 0.2 and 2.0 ) Auto [place] %: 9 % -- Normal range between [...] up: With: Address: When: Marina Redd [address] [place] [address], [address] [place] [address] [facility] (1) 10/01/2021 11:00 AM DIAGNOSIS Acute pain of right knee Comment: PHYS DOC NOTES [facility] 03-04-2021 Note [id number]#1.[facility] 03-04-2021 Note [id number]#1.00[facility] 03-04-2021 Note [id number]#1.00[facility] 03-03-2021 Note Education Materials POST OPERATIVE TOTAL KNEE/HIP DISCHARGE INTRUCTIONS SURGEONS WRITTEN INSTRUCTIONS: Walk with walker; bear weight to tolerance on operative extremity Elevate extremity 1 hour 3 times/day to control pain and swelling and apply cyrocuff Range of motion to ankle 10 times/hour Range of motion to knee hourly Change dressing daily. Reapply silver dressing for next four days then discontinue Cali hose (compression stockings) for 6 weeks Physical [...] #8 follow up in office with physician psych assistant Justo Redd as scheduled #9 NOM[facility] [...] to the nearest hospital's emergency services department. [facility] 03-03-2021 Note [facility] Clinical Discharge Summary PERSON INFORMATION Name ZAINA WINTERS Age 70 Years 1950 Sex MALE Language Guyanese PCP Tonja ERNANDEZ, Jeannine Alfonso Marital Status Med Service Observation Acct# Arrival 03/02/2021 05:52:00 Visit Reason SURGERY - LEFT TOTAL KNEE POSSIBLE STEMS AND AUGS - NEX GEN TIBIA Acuity LOS 000 26:57 Address: [address] [place] [address] Comment: PROVIDER INFORMATION VITALS INFORMATION Vital Sign [...] range between ( 1.3 and 2.9 ) [place] Abs#: 1.9 x103/mcL -- Normal range between ( 0.0 and 0.8 ) Auto Baso %: 0.0 % -- Normal range between ( 0.2 and 2.0 ) Auto [place] %: 10 % -- Normal range between [...] range between ( 74 and 118 ) [facility] Lab Order 03/03/2021 4:47 AM Tube [...] Follow up: With: Address: When: Marina Redd [address] [place] [address] [address] [place], [place] [address] Business (1) 03/15/2021 10:30 AM With: Address: When: Jeannine Evangelista [address] [place] [address] Business (1) DIAGNOSIS Aftercare following left knee joint rep (more content not included)... [facility] 09-23-2020 History of Present illness Narrative Instructed on policies and procedures. documented in this encounter [facility] Phone: Evaluation note Diagnosis Persistent atrial fibrillation (HCC) Atrial fibrillation SOB (shortness of breath) Shortness of breath Essential hypertension Unspecified essential hypertension Other specified diabetes mellitus with other specified complication, unspecified whether lobsterman insulin use (HCC) Class 2 obesity with body mass index (BMI) of 36.0 to 36.9 in adult, unspecified obesity type, unspecified whether serious comorbidity present Pain in both lower extremities documented in this encounter [employer] Phone: evaluation note* Diagnosis Left thigh pain- Primary Pain in soft tissues of limb Muscle strain of left thigh, subsequent encounter documented in this encounter [facility] HealthcareEvaluation noteNo assessment information availableWilson Street [facility] Work Phone: Evaluation note* Diagnosis Dermatophytosis of nail- Primary Dystrophic nail Other specified disease of nail Pain around toenail, right foot Pain around toenail, left foot documented in this encounter [facility]* Diagnosis Acute right otitis media- Primary Bronchitis Bronchitis, not specified as acute or chronic documented in this encounter [facility] HealthcareEvaluation note* Diagnosis Bronchitis Bronchitis, not specified as acute or chronic documented in this encounter [facility]* Diagnosis Bronchitis- Primary Bronchitis, not specified as acute or chronic documented in this encounter [facility]* Diagnosis Bronchitis Bronchitis, not specified as acute or chronic documented in this encounter [facility] HealthcareEvaluation note* Diagnosis Bronchitis- Primary Bronchitis, not specified as acute or chronic documented in this encounter [facility]* Diagnosis Dental abscess- Primary Periapical abscess without sinus documented in this encounter [facility]* Diagnosis Restless legs syndrome Restless legs syndrome (RLS) documented in this encounter [facility] HealthcareEvaluation note* Diagnosis Paroxysmal atrial fibrillation (CMS/HCC) Atrial fibrillation documented in this encounter [facility] HealthcareEvaluation note* Diagnosis Permanent atrial fibrillation (HCC) Atrial fibrillation Chronic anticoagulation Encounter for long-term (current) use of anticoagulants Essential hypertension Unspecified essential hypertension Type 2 diabetes mellitus with diabetic nephropathy, without long-term current use of insulin (HCC) History of COVID-19 Obesity, Class III, BMI 40-49.9 (morbid obesity) Morbid obesity documented in this encounter [facility] note* Diagnosis Permanent atrial fibrillation (HCC) Atrial fibrillation Chronic anticoagulation Encounter for long-term (current) use of anticoagulants Essential hypertension Unspecified essential hypertension Type 2 diabetes mellitus with diabetic nephropathy, without long-term current use of insulin (HCC) History of COVID-19 Obesity, Class III, BMI 40-49.9 (morbid obesity) Morbid obesity documented in this encounter [facility] note* Diagnosis Acute cough- Primary documented in this encounter [facility]* Diagnosis Type 2 diabetes mellitus with diabetic peripheral angiopathy without gangrene ([facility]) [facility] this [facility] Diagnosis Paroxysmal atrial fibrillation ([facility])- Primary Atrial fibrillation PAF (paroxysmal atrial fibrillation) ([facility]) Atrial fibrillation documented in this encounter [facility] note* Diagnosis Encounter for wellness examination- Primary Mixed hyperlipidemia ([facility]) Mixed hyperlipidemia Primary hypertension ([facility]) Unspecified essential hypertension Type 2 diabetes mellitus with other specified complication, without long-term current use of insulin ([facility]) Vitamin D deficiency 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 Gastroesophageal reflux disease without esophagitis Esophageal reflux Paroxysmal atrial fibrillation ([facility]) Atrial fibrillation POOL (obstructive sleep apnea) Obstructive sleep apnea (adult) (pediatric) Peripheral edema Edema PVD (peripheral vascular disease) ([facility]) Unspecified peripheral vascular disease Lumbar radiculopathy Thoracic or lumbosacral neuritis or radiculitis, unspecified Restless legs syndrome Restless legs syndrome (RLS) GERD without esophagitis Esophageal reflux Type 2 diabetes mellitus with diabetic peripheral angiopathy without gangrene, without long-term current use of insulin ([facility]) Insomnia, unspecified type Morbid (severe) obesity due to excess calories ([facility]) Colon cancer screening declined Screening PSA (prostate specific antigen) Special screening for malignant neoplasm of prostate Benign prostatic hyperplasia with lower urinary tract symptoms, symptom details unspecified Body mass index (BMI) 40.0-44.9, adult ([facility]) documented in this encounter [facility]* Diagnosis AF (paroxysmal atrial fibrillation) (HCC) Atrial fibrillation documented in this encounter [facility] for visit Narrative* Consultation (Routine) - Pending Review Specialty Diagnoses / Procedures Referred By Jamal hwang Referred To Contact Physical Therapy Diagnoses Left thigh pain Muscle strain of left thigh, subsequent encounter Procedures RI OFFICE/OUTPATIENT NEW HIGH MDM 60 MINUTES Marina Redd, PA [address] [facility] [address] [place] [address] Yuliya Romero, PT [address] [facility] [address] [place] [address] Referral ID Status Reason Start Date Expiration Date Visits Requested Visits Authorized [id number] Pending Review Consult and Treat 03/23/2023 03/09/2024 1 1 [facility] Summary Purpose Family History No Family [...] Directives No May 04, 2 024 4:36pm Date Activated Date Inactivated Comments 02/12/2020 7:58 AM 02/12/2020 11:52 AM Reason for Referral Status Reason Specialty Diagnoses / Procedures Referred By Contact Referred To Contact Closed Cardiology / Echocardiography Diagnoses Persistent atrial fibrillation (HCC) Essential hypertension SOB (shortness of breath) Fluid retention Other specified diabetes mellitus with other specified complication, unspecified whether lobsterman insulin use (HCC) Class 2 obesity with body mass index (BMI) of 36.0 to 36.9 in adult, unspecified obesity type, unspecified whether serious comorbidity present Procedures ECHO Complete 2D W Doppler W Color Ej Foster MD [address] [place] [address] [facility] Echo [address] [place] [address] Status Reason Specialty Diagnoses / Procedures Referre d By Contact Referred To Contact Closed Radiology Diagnoses Pain in both lower extremities PVD (peripheral vascular disease) (HCC) Procedures VL LOWER EXTREMITY ARTERIAL SEGMENTAL PRESSURES W PPG Ej Foster MD [address] [place] [address] [place] [address] Status Reason Specialty Diagnoses / Procedures Referre d By Contact Referred To Contact Closed Cardiology Diagnoses Persistent atrial fibrillation (HCC) SOB (shortness of breath) Essential hypertension Other specified diabetes mellitus with other specified complication, unspecified whether care home insulin use (HCC) Class 2 obesity with body mass index (BMI) of 36.0 to 36.9 in adult, unspecified obesity type, unspecified whether serious comorbidity present Pain in both lower extremities Procedures Echo 2D w doppler w color complete Ej Foster MD [address] [place] [address] [place] [address] Specialty Diagnoses / Procedures Referred By Contac t Referred To Contact Diagnoses Permanent atrial fibrillation (HCC) Chronic anticoagulation Essential hypertension Type 2 diabetes mellitus with diabetic nephropathy, without long-term current use of insulin (HCC) History of COVID-19 Obesity, Class III, BMI 40-49.9 (morbid obesity) Procedures Echo (TTE) complete (PRN contrast/bubble/strain/3D) RI ECHO TTHRC R-T 2D W/WOM-MODE COMPL SPEC&COLR D RI TTE W OR WO FOL WCON,Shalini Sullivan PA-C [address] [place] [id number] Referral ID Status Reason Start Date Expiration Date V isits Requested Visits Authorized [id number] Not Required - RTA 02/05/2024 02/04/2025 1 1 Specialty Diagnoses / Procedures Referred By Contac t Referred To Contact Diagnoses Permanent atrial fibrillation (HCC) Chronic anticoagulation Essential hypertension Type 2 diabetes mellitus with diabetic nephropathy, without long-term current use of insulin (HCC) History of COVID-19 Obesity, Class III, BMI 40-49.9 (morbid obesity) Procedures Extended cardiac holter monitor (3 days-14 day) RI EXTERNAL ECG REC>48HR<7D REVIEW & INTERPRETATION RI EXTERNAL ECG REC>48HR<7D RECORDING RI EXTERNAL ECG REC>7D<15D RECORDING RI EXTERNAL ECG REC>7D<15D REVIEW & INTERPRETATION Shalini Morrow PA-C [address] [place] [address] Referral ID Status Reason Start Date Expiration Date V isits Requested Visits Authorized [id number] Not Required - RTA 02/05/2024 02/04/2025 1 1 Specialty Diagnoses / Procedures Referred By Contac t Referred To Contact Cardiology Diagnoses PAF (paroxysmal atrial fibrillation) ([facility]) Procedures Cardioversion external HC CARDIOVERSION Ej Foster MD [address] [place] [address] [place] [address] Referral ID Status Reason Start Date Expiration Date V isits Requested Visits Authorized [id number] Not Required - RTA 02/22/2024 02/21/2025 1 1 Specialty Diagnoses / Procedures Referred By Contac t Referred To Contact Cardiology Diagnoses AF (paroxysmal atrial fibrillation) (HCC) Procedures Extended cardiac holter monitor (3 days-14 day) RI EXTERNAL ECG REC>48HR<7D REVIEW & INTERPRETATION RI EXTERNAL ECG REC>48HR<7D RECORDING RI EXTERNAL ECG REC>7D<15D RECORDING RI EXTERNAL ECG REC>7D<15D REVIEW & INTERPRETATION Ej Foster MD [address] [place] [address] [place] [address] Referral ID Status Reason Start Date Expiration Date Visits Re quested Visits Authorized [id number] Closed 02/26/2024 02/25/2025 1 1 History of Present Illness * Nini Todd - 01/22/2020 11:30 AM EST Explained policies and procedures of an echocardiogram/Doppler study. documented in this encounter* Arianna Allen RN - 02/12/2020 9:42 AM EST News Writer reviewed discharge instructions with patient and spouse. Both verbalized understanding. Denies questions. Copy of discharge instructions given to patient. documented in this encounter Assessments Diagnosis Persistent atrial fibrillation (HCC) Atrial fibrillation Essential hypertension Unspecified essential hypertension SOB (shortness of breath) Shortness of breath Fluid retention Other fluid overload Other specified diabetes mellitus with other specified complication, unspecified whether care home insulin use (HCC) Class 2 obesity with body mass index (BMI) of 36.0 to 36.9 in adult, unspecified obesity type, unspecified whether serious comorbidity present Diagnosis Persistent atrial fibrillation (HCC) Atrial fibrillation Essential hypertension Unspecified essential hypertension SOB (shortness of breath) Shortness of breath Fluid retention Other fluid overload Other specified diabetes mellitus with other specified complication, unspecified whether care home insulin use (HCC) Class 2 obesity with [...] mellitus with other specified complication, unspecified whether lobsterman insulin use (HCC) Class 2 obesity with [...] doctor prescribes. Do not take any vitamins, yskz-erw-loahsfi medicines, or herbal products without talking to [...] or uneven pulse. After calling 911, the welding machine operator plasma arc may tell you to chew 1 adult-strength [...] Where can you learn more? Go to [email or web address] and sign in to your [employer] account. Enter A617 in the Search Health Information box to learn more about Electrical Cardioversion: What to Expect at Home. If you do not have an account, please click on the Sign Up Now link. [employer]. Care instructions adapted under license by [employer]. This care instruction is for use with your licensed healthcare professional. If you have questions about amedical condition or this instruction, always ask your healthcare professional. [employer] disclaims any warranty or liability for your use of this information. Content Version: [id number]; Current as of: April 04, 2014 documented [...] and content) DATE CREATED AUTHOR 12/21/2019 [facility] DATE CREATED AUTHOR AUTHOR'S ORGANIZ ATION 06/12/2021 [facility] dical Specialist DATE CREATED AUTHOR AUTHOR'S ORGANIZ ATION 10/25/2021 [facility] DATE CREATED AUTHOR AUTHOR'S ORGANIZ ATION 05/27/2023 [facility] DATE CREATED AUTHOR AUTHOR'S ORGANIZ ATION 07/02/2023 [facility] DATE CREATED AUTHOR AUTHOR'S ORGANIZ ATION 11/17/[address] [facility] DATE CREATED AUTHOR AUTHOR'S ORGANIZ ATION 02/26/2024 [facility] Specialists EPIC DATE CREATED AUTHOR AUTHOR'S ORGANIZ ATION 02/28/2024 [facility] Reason for Visit (unrecogniz ed section and content) Status Reason Specialty Diagnoses / Procedures Referred By Contact Referred To Contact Closed Cardiology / Echocardiography Diagnoses Persistent atrial fibrillation (HCC) Essential hypertension SOB (shortness of breath) Fluid retention Other specified diabetes mellitus with other specified complication, unspecified whether care home insulin use ([facility]) Class 2 obesity with body mass index (BMI) of 36.0 to 36.9 in adult, unspecified obesity type, unspecified whether serious comorbidity present Procedures ECHO Complete 2D W Doppler W Color Ej Foster MD [address] [place] [address] [place] [address] [facility] Echo [address] [place], [place] [id number] Status Reason Specialty Diagnoses / Procedures Referre d By Contact Referred To Contact Closed Radiology Diagnoses Pain in both lower extremities PVD (peripheral vascular disease) ([facility]) Procedures VL LOWER EXTREMITY ARTERIAL SEGMENTAL PRESSURES W PPG Ej Foster MD [address] [place] [address] [place] [address] Status Reason Specialty Diagnoses / Procedures Re ferred By Contact Referred To Contact Authorized Cardiology Diagnoses Essential hypertension Persistent atrial fibrillation (HCC) SOB (shortness of breath) Other specified diabetes mellitus with other specified complication, unspecified whether lobsterman insulin use (HCC) COVID-19 Procedures Referral to Cardiac Cath RI CARDIOVERSION ELECTIVE ARRHYTHMIA EXTERNAL Ej Foster MD [address] [place] [address] [place] [address] [place] [address] Status Reason Specialty Diagnoses / Procedures Referre d By Contact Referred To Contact Closed Cardiology Diagnoses Persistent atrial fibrillation (HCC) SOB (shortness of breath) Essential hypertension Other specified diabetes mellitus with other specified complication, unspecified whether care home insulin use (HCC) Class 2 obesity with body mass index (BMI) of 36.0 to 36.9 in adult, unspecified obesity type, unspecified whether serious comorbidity present Pain in both lower extremities Procedures Echo 2D w doppler w color complete Ej Foster MD [address] [place] [address] [place] [address] Reason Onset Date Comments re: PT today [...] paolag he had just gotten verification per [employer] that if referring provider refers for therapy then PT would be covered. He gave a reference # [id number]. Reason Comments Toenail Care PCP: Kenia Mace 10/11/23, A1C: 6.2, BS: 107 Reason Comments Cough Reason Comments Establish Care Reason Comments Med Refill Specialty Diagnoses / Procedures Referred By Contarleth t Referred To Contact Diagnoses Permanent atrial fibrillation (HCC) Chronic anticoagulation Essential hypertension Type 2 diabetes mellitus with diabetic nephropathy, without long-term current use of insulin (HCC) History of COVID-19 Obesity, Class III, BMI 40-49.9 (morbid obesity) Procedures Echo (TTE) complete (PRN contrast/bubble/strain/3D) RI ECHO TTHRC R-T 2D W/WOM-MODE COMPL SPEC&COLR D RI TTE W OR WO FOL WCON,DOPPLER Shalini Morrow PA-C [address] [place] [phone] Referral ID Status Reason Start Date Expiration Date V isits Requested Visits Authorized [id number] Not Required - RTA 02/05/2024 02/04/2025 1 1 Specialty Diagnoses / Procedures Referred By Contac t Referred To Contact Diagnoses Permanent atrial fibrillation (HCC) Chronic anticoagulation Essential hypertension Type 2 diabetes mellitus with diabetic nephropathy, without long-term current use of insulin (HCC) History of COVID-19 Obesity, Class III, BMI 40-49.9 (morbid obesity) Procedures Extended cardiac holter monitor (3 days-14 day) RI EXTERNAL ECG REC>48HR<7D REVIEW & INTERPRETATION RI EXTERNAL ECG REC>48HR<7D RECORDING RI EXTERNAL ECG REC>7D<15D RECORDING RI EXTERNAL ECG REC>7D<15D REVIEW & INTERPRETATION Shalini Morrow PA-C [address] [place] [address] Referral ID Status Reason Start Date Expiration Date V isits Requested Visits Authorized [id number] Not Required - RTA 02/05/2024 02/04/2025 1 1 Specialty Diagnoses / Procedures Referred By Contac t Referred To Contact Cardiology Diagnoses PAF (paroxysmal atrial fibrillation) (HCC) Procedures Cardioversion external HC CARDIOVERSION Ej Foster MD [address] [place] [phone] Referral ID Status Reason Start Date Expiration Date V isits Requested Visits Authorized [id number] Not Required - RTA 02/22/2024 02/21/2025 1 1 Reason Comments Medicare [place] Well[place] [facility] [place] Specialty Diagnoses / Procedures Referred By Contac t Referred To Contact Cardiology Diagnoses AF (paroxysmal atrial fibrillation) (HCC) Procedures Extended cardiac holter monitor (3 days-14 day) RI EXTERNAL ECG REC>48HR<7D REVIEW & INTERPRETATION RI EXTERNAL ECG REC>48HR<7D RECORDING RI EXTERNAL ECG REC>7D<15D RECORDING RI EXTERNAL ECG REC>7D<15D REVIEW & INTERPRETATION Ej Foster MD [address] [place] [address] [place] [address] Referral ID Status Reason Start Date Expiration Date Visits Re quested Visits Authorized [id number] Closed 02/26/2024 02/25/2025 1 1 Care Teams (unrecognized sec tion and content) Excelsior Picker Relationship Specialty Start Date End Date Bernie Adam MD [address] [place] [address] PCP - ACO Reach 07/07/22 Bernie Adam MD [address] [place] [address] PCP - General Family Medicine 08/01/22 Excelsior Picker Relationship Specialty Start Date End Date Bernie Adam MD [address] [facility] [place] [address] PCP - ACO Reach 07/07/22 Bernie Adam MD [address] [place] [address] PCP - General Family Medicine 08/01/22 Excelsior Picker Relationship Specialty Start Date End Date Bernie Adam MD [address] [place] [address] PCP - ACO Reach 07/07/22 Bernie Adam MD [address] [place] [address] PCP - General Family Medicine 08/01/22 Excelsior Picker Relationship Specialty Start Date End Date Bernie Adam MD [address] [facility] [place] [address] PCP - ACO Reach 07/07/22 Bernie Adam MD [address] [facility] [place] [address] PCP - General Family Medicine 08/01/22 Excelsior Picker Relationship Specialty Start Date End Date Bernie Adam MD [address] [facility] [place] [address] PCP - ACO Reach 07/07/22 Bernie Adam MD [address] [facility] [place] [address] PCP - General Family Medicine 08/01/22 Team [...] May 23, 2023 End: May 23, 2023 Excelsior Picker Relationship Specialty Start Date End Date Bernie Adam MD [address] [facility] [place] [address] PCP - General Family Medicine 08/01/22 Bernie Adam MD [address] [facility] [place] [address] PCP - ACO Reach 06/14/23 Excelsior Picker Relationship Specialty Start Date End Date Bernie Adam MD [address] [place] [address] PCP - General Family Medicine 08/01/22 Bernie Adam MD [address] [place] [address] PCP - ACO Reach 06/14/23 Excelsior Picker Relationship Specialty Start Date End Date Bernie Adam MD [address] [place] [address] PCP - General Family Medicine 08/01/22 Bernie Adam MD [address] [place] [address] PCP - ACO Reach 06/14/23 Excelsior Picker Relationship Specialty Start Date End Date Bernie Adam MD [address] [place] [address] PCP - General Family Medicine 08/01/22 Bernie Adam MD [address] [place] [address] PCP - ACO Reach 06/14/23 Excelsior Picker Relationship Specialty Start Date End Date Bernie Adam MD [address] [place] [address] PCP - General Family Medicine 08/01/22 Bernie Adam MD [address] [place] [address] PCP - ACO Reach 06/14/23 Excelsior Picker Relationship Specialty Start Date End Date Bernie Adam MD [address] [place] [address] PCP - General Family Medicine 08/01/22 Bernie Adam MD [address] [place] [address] PCP - ACO Reach 06/14/23 Excelsior Picker Relationship Specialty Start Date End Date Bernie Adam MD [address] [place] [address] PCP - General Family Medicine 08/01/22 Bernie Adam MD [address] [place] [address] PCP - ACO Reach 06/14/23 Excelsior Picker Relationship Specialty Start Date End Date Bernie Adam MD [address] [place] [address] PCP - General Family Medicine 08/01/22 Bernie Adam MD [address] [place] [address] PCP - ACO Reach 06/14/23 Excelsior Picker Relationship Specialty Start Date End Date Bernie Adam MD [address] [place] [address] PCP - General Family Medicine 08/01/22 Bernie Adam MD [address] [place] [address] PCP - ACO Reach 06/14/23 Excelsior Picker Relationship Specialty Start Date End Date Bernie Adam MD [address] [place] [address] PCP - General Family Medicine 08/01/22 Bernie Adam MD [address] [place] [address] PCP - ACO Reach 06/14/23 Excelsior Picker Relationship Specialty Start Date End Date Jeannine Evangelista MOLD PRESSER - SENIOR TELECOMMUNICATIONS ENGINEER [address] [place] [address] PCP - General Nurse Practitioner Family 01/30/20 Excelsior Picker Relationship Specialty Start Date End Date Jeannine Evangelista APRN - SENIOR TELECOMMUNICATIONS ENGINEER [address] [place] [address] PCP - General Nurse Practitioner Family 01/30/20 Excelsior Picker Relationship Specialty Start Date End Date Bernie Adam MD [address] [place] [address] PCP - General Family Medicine 08/01/22 Bernie Adam MD [address] [place] [address] PCP - ACO Reach 06/14/23 Excelsior Picker Relationship Specialty Start Date End Date Jeannine Evangelista MOLD PRESSER - SENIOR TELECOMMUNICATIONS ENGINEER [address] [place] [address] PCP - General Nurse Practitioner Family 01/30/20 Excelsior Picker Relationship Specialty Start Date End Date Bernie Adam MD [address] [place] [address] PCP - General Family Medicine 08/01/22 Bernie Adam MD [address] [facility] [place], [place] [id number] PCP - ACO Reach 06/14/23 Excelsior Picker Relationship Specialty Start Date End Date Jeannine Evangelista APRN - SENIOR TELECOMMUNICATIONS ENGINEER [address] [place] [address] PCP - General Nurse Practitioner Family 01/30/20 Goals (unrecognized section and content) Goals may be documented in a n alternate sectionGoals may be documented in an alternate section Ordered Prescriptions (unrec ognized section and content) Prescription Sig Dispensed Refills Start Date End Da te amiodarone (CORDARONE) 200 MG tablet Take 1 tablet by mouth daily 30 tablet 1 02/23/2024 metoprolol tartrate (LOPRESSOR) 25 MG tablet Take 1 tablet by mouth 2 times daily 30 tablet 02/23/2024 FOR RECORDS PERTAINING TO PATIENTS WHO ARE [...] BE BASED ON THE PRIMARY CLINICAL RECORDS. [employer]. provides no warranty or guarantee of the accuracy or completeness of information in this document.
[2024-03-04 09:08] VITALS: BP 149/89; PULSE 66; TEMP 36.3; O2SAT 97
[2024-03-04 09:15] LABS: Glucometer 103 mg/dL (74-106)
[2024-03-04 09:51] VITALS: BP 181/79; PULSE 66; O2SAT 95
[2024-03-04 09:54] VITALS: BP 169/79; PULSE 64; O2SAT 94
--- NOTE | 2024-03-04 09:55 | P.ON_ITS ---
Date of procedure: 03/04/24 Pre-op diagnosis: Pain due to lumbar stenosis with neurogenic claudication Post-op diagnosis: same as pre-op Procedure: Procedure: Left L4-5, L5-S1 transforaminal epidural steroid injection Medications: Bupivacaine 0.25% 2cc, lidocaine 2% 1cc, depomedrol 80mg The patient was seen and examined in the preoperative holding area.? Informed consent was obtained and placed on the chart.? Patient was brought to the medical procedure unit and placed in the prone position where a timeout was completed verifying the correct patient, procedure site, position, and planned special equipment using sterile aseptic technique.? Under direct fluoroscopic visualization a 25-gauge Quincke tipped spinal needle was advanced to the designated neural foramen where contrast dye was injected to show adequate spread.? The needle was inserted at level left L4-5. There was no evidence of vascular or adverse uptake.? Epidural spread was appreciated.? The above- mentioned injectate was then placed in a 1.5 mL aliquot preceded by negative aspiration.? The needle was removed. The needle was inserted and the procedure repeated at level left L5-S1.? The surgery site was covered.? Patient was taken to the postprocedural recovery area and monitored for an appropriate length of time before found suitable for discharge in the accompaniment of a responsible adult. Anesthesia: Local Surgeon: Ever Guillen Pathology: none sent Condition: stable Disposition: no change
[2024-03-04] MEDS: LIDOCAINE HCL 2% 400 MG/20 ML MDV 3 ML INJ (09:56)
[2024-03-04] MEDS: 0.9 % SODIUM CHLORIDE 10 ML SYRINGE - SALINE FLUSH INJ (09:56)
[2024-03-04] MEDS: IOHEXOL 240 MG/ML - 10 ML VIAL 12 MG INJ (09:56)
[2024-03-04] MEDS: BUPIVACAINE HCL 0.25% PF 25 MG/10 ML VIAL INJ (09:56)
[2024-03-04] MEDS: METHYLPREDNISOLONE ACETATE 80 MG/ML VIAL INJ (09:57)
== END 2024-03-04 10:00 | disposition home or self-care (01) ==
LOC: SURGOUT 08:54
PROVIDERS: Visit Provider Anesthesiology
DX: M48.062 Spinal stenosis, lumbar region with neurogenic claudication (principal); E11.9 Type 2 diabetes mellitus without complications; Z79.4 Long term (current) use of insulin; Z79.84 Long term (current) use of oral hypoglycemic drugs
CPT/HCPCS: 36415; 64483; 64484; 82948; J0665; J1010; Q9966

== ENCOUNTER 2024-03-14 13:30 | Outpatient (OUT) | payer OTHER, SELFPAY ==
--- NOTE | 2024-03-14 13:55 | P.CN_ITS ---
Consult Note: HPI Data of Consult Patient: known to practice within the last 3 years Requesting Physician: Kelley Richard NP Primary Care Provider: Non-Staff Physician, MD Consult Narrative Reason for consult: left hip pain Narrative: 72yom who presents for assessment. continues to have moderate to severe left hip and left leg pain. imaging reviewed, which is significant for left-sided foraminal stenosis at l4-5, l5-s1. continues in a series of provider directed home exercises >6 weeks, without lasting relief. uses tylenol primarily. cannot take nsaids due to blood thinner. denies adverse med side effects. recently underwent left L4-5 L5-S1 TFESI with >50% improvement ongoing. pt was started on gabapentin last visit, finding mild benefit without side effects. cc:: CC: Kelley Richard NP Review of Systems ROS Status of ROS 10 or more systems reviewed and unremark able except as noted in history and below Musculoskeletal Reports: back pain and joint pain; Denies: extremity pain PFSH PFSH Medical History (Updated 03/14/24 @ 13:57 by Kelley Richard NP) Diabetes ?E11.9 - Type 2 diabetes mellitus without complications (ICD-10) High cholesterol ?E78.00 - Pure hypercholesterolemia, unspecified (ICD-10) Atrial fibrillation, chronic ?I48.20 - Chronic atrial fibrillation, unspecified (ICD-10) HTN (hypertension) ?I10 - Essential (primary) hypertension (ICD-10) Surgical History History of knee surgery ?Z98.890 - Other specified postprocedural states (ICD-10) History of back surgery ?Z98.890 - Other specified postprocedural states (ICD-10) Meds Home Medications and Allergies Home Medications ?Medication ?Instructions ?Recorded ?Confirmed ?Type allopurinol 100 mg tablet 100 mg PO DAILY 06/22/23 03/04/24 History apixaban 5 mg tablet (Eliquis) 5 mg PO BID 06/22/23 03/04/24 History ascorbic acid (vitamin C) 500 mg 500 mg PO DAILY 06/22/23 03/04/24 History chewable tablet atorvastatin 10 mg tablet 10 mg PO DAILY 06/22/23 03/04/24 History cholecalciferol (vitamin D3) 25 1,000 unit PO DAILY 06/22/23 03/04/24 History mcg (1,000 unit) tablet (Vitamin D3) losartan 50 mg-hydrochlorothiazide 1 tab PO DAILY 06/22/23 03/04/24 History 12.5 mg tablet metformin 500 mg tablet 500 mg PO BID 06/22/23 03/04/24 History metoprolol tartrate 25 mg tablet 12.5 mg PO BID 06/22/23 03/04/24 History omeprazole 20 mg capsule,delayed 20 mg PO DAILY 06/22/23 03/04/24 History release ropinirole 1 mg tablet 1.5 mg PO DAILY 06/22/23 03/04/24 History tamsulosin 0.4 mg capsule 0.4 mg PO DAILY 06/22/23 03/04/24 History baclofen 10 mg tablet 10 mg PO TID #90 tabs 10/04/23 11/13/23 Rx gabapentin 300 mg capsule 300 mg PO Q12H 02/27/24 03/04/24 History gabapentin 300 mg capsule 300 mg PO BID #60 caps 03/06/24 Rx Allergies Allergy/AdvReac Type Severity Reaction Status Date / Time No Known Drug Allergies Allergy Verified 03/04/24 09:18 Exam Constitutional Documenting provider has reviewed patient's vital signs: yes Common normals: no apparent distress, oriented x3, healthy appearing, alert and well nourished General appearance: cooperative HENMT Common normals: normocephalic, hearing grossly normal bilaterally and moist oral mucous membranes Head and scalp: normocephalic Eye Common normals: PERRL Pupil: PERRL Neck & C-Spine Common normals: full ROM General: normal visual inspection Chest Common normals: inspection of chest normal Respiratory Common normals: normal respiratory effort, no retractions and no use of accessory muscles Back & Pelvis Lumbar spine/lower back: ROM limited; no pain with ROM, no lumbar spinal tenderness, straight leg raise negative right and straight leg raise negative left Sacroiliac joints: SI joint(s) abnormal Other: left sij positive alise(patricks), gaenslens, thigh thrust, compression test Neuro Common normals: oriented x3, CN's II-XII intact bilaterally, moves all extremities, no focal motor deficits, no sensory deficits noted and deep tendon reflexes 2+ bilaterally Sensorium/orientation: alert Motor exam: strength 5/5 throughout and no movement abnormalities noted Psych Common normals: mental status grossly normal, thought process normal, co operative, affect normal, speech normal and activity/motor behavior normal Speech: normal speech Thought process: normal thought process Results Additional Findings Additional findings: If on a controlled substance or opioids, I have checked an [place]AR[place] report on this patient and there are no aberrancies noted in the prescribing history.??If on a controlled substance or opioid a drug screen was completed and reviewed within the last year, and if there has not been a drug screen completed we ordered one today to monitor higher risk, state monitored pain medication use. As part of providing excellent, safe, comprehensive care, the following was completed at our patient's visit: 1. A medication reconciliation and review to ensure accurate knowledge of current/active medications, including asking our patients to inform us about any omrp-noo-tiecgvy medications or herbal remedies/nutritional supplements/alternative remedies. 2. A review to specifically ensure our patients have had annual screening for screening for depression, screening for tobacco use, and screening for unhealthy alcohol use. For concerning screenings had a discussion with the patient, provided patient education, and recommended follow-up with primary care provider when appropriate. If patient noted with a risk of falling, they received education on strength, gait, and balance training to prevent future risk of falling. Portions of this note may have been carried over from the previous visit and updated as appropriate. Please note this office utilizes paper charting in addition to the electronic medical record. A list of current medications, vitals, and PMH is available there as the clinical staff outside of myself do not have access to [employer] charting during the clinic day operations. As part of providing quality comprehensive care the current medications, vitals, and PMH were reviewed in the paper chart. Assessment and Plan Assessment and Plan (1) Lumbar stenosis with neurogenic claudication: (2) Sacroiliitis: Plan increase gabapentin 600mg BID left SIJ injection under fluoroscopy continue HEP as tolerated f/u after injection
== END 2024-03-14 13:31 | disposition home or self-care (01) ==
LOC: PM 13:31
PROVIDERS: Visit Provider Nurse Practitioner
DX: M48.062 Spinal stenosis, lumbar region with neurogenic claudication (principal); M46.1 Sacroiliitis, not elsewhere classified
CPT/HCPCS: G0463

== ENCOUNTER 2024-04-01 08:33 | Day surgery (SDC) | payer OTHER, SELFPAY ==
[2024-04-01 08:40] VITALS: BP 153/77; PULSE 66; TEMP 36.1; O2SAT 91
[2024-04-01 08:45] LABS: Glucometer 105 mg/dL (74-106)
--- OUTSIDE RECORDS SUMMARY | 2024-04-01 08:50 | XMS_ITS | CCD ---
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 Name Role Phone Unavailable Primary Care Provider Unavailabl e MISC, DOCTOR Primary Care Unavailable MATTEVI, ARMANDO Admitting Unavailable MATTEVI, ARMANDO Consulting Unavailable MATJUAN DAVID, ARMANDO Attending Unavailable Rupesh Ulrich Consulting Unavailable Jeannine Evangelista Primary Care Provider Jeannine Villatoro APRN, CNP Primary Care P rovider Bernie Adam MD Unavailable [phone] Bernie Adam MD Primary Care Provider EVANS Redd Attending Provider [phone] AWAIS Evangelista Primary Care Provider AWAIS Evangelista Primary Care Provider EVANS Redd Attending Provider [phone] Marina Redd Attending Unavailable Marina Redd Admitting Unavailable Jeannine Evangelista Primary Care Unavailable DAVID AWAD JR Attending UnavailDAVID Rahman JR Referring Unavailabl e JEANNINE EVANGELISTA Primary Care Unavailab DAVID Roman JR Attending UnavailDAVID Rahman JR Referring Unavailabl e JEANNINE EVANGELISTA A Primary Care Unavailab Bernie Barrios MD Unavailable Jeannine Villatoro APRN, CNP Primary Care P roluis manuel ARIANNA LOU Attending Unavailable MARINA REDD Attending Unavailable MARINA REDD Referring Unavailable MARINA REDD Attending Unavailable REDD, MARINA [...] Referring Unavaila ble KAMPFER, KENIA Attending Unavailable RUSHER, ARIANNA Alfonso Attending Unavailable KAMPFER, KENIA Attending Unavailable KAMPFER, KENIA Attending Unavailable RUSHER, ARIANNA Alfonso Attending Unavailable EVANGELISTA, JEANNINE Alfonso Attending Unavailab le KAMPFER, KENIA Attending Unavailable LASHALINI LYONS Referring Unavailable EVANGELISTA, JEANNINE A Primary Care Unavailab le ISMAEL, SHALINI Referring Unavailable EVANGELISTA, JEANNINE Alfonso Primary Care Unavailab le EJ FOSTER F Kate Referring Unavailable EVANGELISTA, JEANNINE Alfonso Primary Care Unavailab le AHMACarmen, ALI F Kate Attending Unavailable AHMAD, ALI F O Referring Unavailable EVANGELISTA, JEANNINE A Primary Care Unavailab cipriano Guillen MD, Ever Gonzalez Attending Unavailable Mindy SANTAMARIA, Jalynrius Gonzalez Attending Unavailable Mindy SANTAMARIA, Jalynrius Gonzalez Attending Unavailable Gijieitis , Andrius Gonzalez Attending Unavailable Mindy SANTAMARIA, Ever Gonzalez Attending Unavailable Medications Current Medications Medication Drug Class(es) Dates Sig (Normalized) Sig (Original) allopurinol 100 mg oral tablet (20 sources) Xanthine Oxidase Inhibitor Start: 03-12-2024 allopurinol (Zyloprim) 100 MG tablet Indications: 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 TAKE 1 TABLET IN THE MORNING 90 tablet 1 03/12/2024 Active Start: 10-18-2022 allopurinol (Z yloprim) 100 [...] Factor Xa Inhibitor Start: 04-04-2023 End: 10-24-2023 apixaban (Eliquis) 5 MG tablet Indications: [...] 10/21/2023 Active gabapentin 300 mg oral capsule (3 sources) Anti-epileptic Agent Start: take 1 capsule [...] TABLET IN THE MORNING 90 tablet 1 03/22/2024 Active Start: 09-25-2023 End: 03-22-2024 losartan-hydroCHLOROthiazide (Hyzaar) 50-12.5 MG tablet Indications: Primary hypertension (CMS/HCC) TAKE 1 TABLET IN THE MORNING 90 tablet 1 09/25/2023 03/22/2024 Discontinued Start: 07-28-2022 take 1 tablet by abdullahi [...] mellitus with other specified complication, unspecified whether group home insulin use (HCC) , Class 2 [...] (20 sources) Proton Pump Inhibitor Start: 01-21-2020 omeprazole (PriLOSEC ) [address] capsule Indications: Gastroesophageal reflux disease without esophagitis TAKE 1 CAPSULE EVERY MORNING BEFORE A MEAL 90 capsule 1 12/11/2023 Active rOPINIRole 1 mg oral tablet (20 [...] oral capsule (20 sources) alpha-Adrenergic Lex Start: 03-12-2024 tamsu losin (Flomax) 0.4 MG 24 hr capsule Indications: Benign prostatic hyperplasia with nocturia TAKE 1 CAPSULE IN THE MORNING 90 capsule 1 03/12/2024 Active Start: 09-15-2023 tamsulosin (Fl omax) 0.4 MG 24 hr capsule Indications: Benign [...] mouth twice daily as needed HYDROcodone-acetami nophen (Macon) 5-325 MG tablet Take 1 tablet by mouth 2 (two) times a day as needed 06/28/2023 02/20/2024 Discontinued (Therapy completed) [id number] 200 actuat albuterol 0.09 mg/actuat metered dose [...] mellitus with other specified complication, 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) , Class 2 obesity [...] sources) Long-term current use of anticoagulant; 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: [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] 02-05-2024 Episodic Other aftercare (1 source) 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; 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: [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.] unspecified site] Onset: 05-26-2021 10-04-2022 Episodic Other HAND TUBE BENDER infection and poliomyelitis (20 sources) H/O: poliomyelitis; [...] Resolved: 09-19-2023 01-22-2020 Episodic Residual codes; unclassified (20 sources) Peripheral edema; 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: [Edema, unspecified] Onset: 11-28-2018 10-04-2022 Episodic Spondylosis; intervertebral disc disorders; other back problems (20 sources) Acute low back pain; 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: [Acute left-sided low back pain without sciatica] Onset: 10-25-2022 10-25-2022 Episodic Viral infection (20 sources) Other specified viral infection; 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: [COVID-19] Onset: 12-16-2019 Resolved: 09-19-2023 01-22-2020 Episodic Results Test Name Value Interpretation Reference Range Facility EKG 12 LeadOrdered By: Danny Mascorro on 02-23-2024 Q-T Interval 382 ms [facility] Phone: QRS Duration 96 ms [facility] Phone: QTc Calculation (Bazett) 451 ms [facility] Phone: R Charmco -23 degrees Fe[facility] Phone: T Charmco 22 degrees [facility] Phone: Ventricular Rate 84 BPM Bon [employer] clipsync Phone: Feast Phone: EKG 12 Leadon 02-23-2024 Atrial fibrillation Abnormal ECG ECG not diagnostic for Acute Coronary Syndrome; consider clinical findings When compared with ECG of 12-FEB-2020 08:26, Atrial fibrillation has replaced Sinus rhythm Confirmed by ARIANNA MASCORRO ([id number]) on 02/23/2024 10:09:04 PM [facility] Arianna Mascorro MD - 02/23/2024 Atrial [...] 471 ms [facility] R Charmco -23 degrees [facility] T Charmco -19 degrees [facility] Ventricular Rate 81 BPM [facility] Normal sinus rhythm with a short run of atrial tachycardia Nonspecific T wave abnormality Prolonged QT Abnormal ECG When compared with ECG of 23-FEB-2024 11:06, (unconfirmed) normal sinus rhythm with a short run of atrial tachycardia has replaced atrial fibrillation Nonspecific T wave abnormality now evident in Anterior leads Confirmed by ARIANNA MASCORRO ([id number]) on 02/23/2024 9:25:47 PM [facility] Arianna Mascorro MD - 02/23/2024 Normal [...] 56 BPM [facility] P Charmco 17 degrees [facility] P-R Interval 204 ms [facility] Q-T Interval 442 ms [facility] QRS Duration 98 ms [facility] QTc Calculation (Bazett) 426 ms [facility] R Charmco -25 degrees [facility] T Charm[place] 5 degrees [facility] Ventricular Rate 56 BPM [facility] Sinus bradycardia Otherwise normal ECG When compared with ECG of 23-FEB-2024 12:06, (unconfirmed) Previous ECG has undetermined rhythm, needs review Confirmed by ARIANNA MASCORRO ([id number]) on 02/23/2024 9:11:49 PM [facility] Arianna Mascorro MD - 02/23/2024 Sinus bradycardia Otherwise normal ECG When compared with ECG of 23-FEB-2024 12:06, (unconfirmed) Previous ECG has undetermined rhythm, needs review Confirmed by ARIANNA MASCORRO ([id number]) on 02/23/2024 9:11:49 PM [facility] 25-hydroxyvitamin D3 [Mass/V ol]on 02-21-2024 25-hydroxyvitamin D [Mass/Vol] 36 ng/mL 30 - 100 ng/mL [facility] Comment on above: Vitamin D Status 25- OH Vitamin D: Deficiency: <20 ng/mL Insufficiency: 20 - 29 ng/mL Optimal: > or = 30 ng/mL For 25-OH Vitamin D testing on patients on D2-supplementation and patients for whom quantitation of D2 and D3 fractions is required, the QuestAssureD(TM) 25-OH VIT D, (D2,D3), LC/MS/MS is recommended: order code 81997 (patients >2yrs). See Note 1 Note 1 For additional information, please refer to http://education.InfiniDB/faq/XGN829 (This link is being provided for informational/ educational purposes only.) Laboratory - Chemistry and C hemistry - challengeon 02-21-2024 Albumin [Mass/Vol] 4.1 g/dL 3.6 - 5.1 g/dL [facility] Albumin/Globulin [Mass ratio] 2.2 {ratio} [facility] ALP [Catalytic activity/Vol] 72 U/L 35 - 144 U/L [facility] ALT [Catalytic activity/Vol] 13 U/L 9 - 46 U/L [facility] AST [Catalytic activity/Vol] 16 U/L 10 - 35 U/L [facility] Bilirubin [Mass/Vol] 0.6 mg/dL 0.2 - 1 .2 mg/dL [facility] Calcium [Mass/Vol] 9.1 mg/dL 8.6 - 10. 3 mg/dL [facility] Chloride [Moles/Vol] 102 mmol/L 98 - 11 0 mmol/L [facility] CO2 [Moles/Vol] 27 mmol/L 20 - 32 mmol/L [facility] Creatinine [Mass/Vol] 0.87 mg/dL 0.70 - 1.28 mg/dL [facility] GFR/1.73 sq M.predicted among non-blacks MDRD (S/P/Bld) [Vol rate/Area] 90 mL/min/{1.73_m2} > OR = 60 mL/min/1.73m2 [facility] Globulin (S) [Mass/Vol] 1.9 g/dL [facility] Glucose [Mass/Vol] 139 mg/dL High 65 - 99 mg/dL [facility] Comment on above: Fasting reference interval For someone without known diabetes, a glucose value >125 mg/dL indicates that they may have diabetes and this should be confirmed with a follow-up test. Potassium [Moles/Vol] 4 mmol/L 3.5 - 5.3 mmol/L [facility] Prostate specific Ag [Mass/Vol] 0.33 ng/mL < OR = 4.00 [facility] Comment on above: The total PSA value from this assay system is standardized against the WHO standard. The test result will be approximately 20% lower when compared to the equimolar-standardized total PSA (Abelardo Jessi). Comparison of serial PSA results should be interpreted with this fact in mind. This test was performed using the Siemens chemiluminescent method. Values obtained from different assay methods cannot be used interchangeably. PSA levels, regardless of value, should not be interpreted as absolute evidence of the presence or absence of disease. Protein [Mass/Vol] 6 g/dL Low 6.1 - 8.1 g/dL [facility] Sodium [Moles/Vol] 141 mmol/L 135 - 146 mmol/L [facility] Urate [Mass/Vol] 7.5 mg/dL 4.0 - 8.0 mg/dL [facility] Comment on above: Therapeutic target f or gout patients: <6.0 mg/dL Urea nitrogen [Mass/Vol] 17 mg/dL 7 - 25 mg/dL [facility] Urea nitrogen/Creatinine [Mass ratio] SEE NOTE: [facility] Comment on above: Not Reported: BUN an d Creatinine are within reference range. Laboratory - Hematology and Cell countson 02-21-2024 HbA1c (Bld) [Mass fraction] 6.3 % High NINF [facility] Comment on above: For someone without known [...] 1996 panelon 5 Cholesterol [Mass/Vol] 121 mg/dL [facility] - 200 mg/dL [facility] Cholesterol in HDL [Mass/Vol] 40 mg/dL > OR = 40 [facility] Cholesterol in LDL [Mass/Vol] 53 mg/dL mg/dL (calc) [facility] Comment on above: Reference range: <10 0 Desirable range <100 mg/dL for primary prevention; <70 mg/dL for patients with CHD or diabetic patients with > or = 2 CHD risk factors. LDL-C is now calculated using the -Vitale calculation, which is a validated novel method providing better accuracy than the Friedewald equation in the estimation of LDL-C. Martin REYNOLDS et al. TANA. 2013;310(19): 8060-9364 (http://education.InfiniDB/faq/KKE355) Cholesterol non HDL [Mass/Vol] 81 mg/dL [facility] Comment on above: For patients with di abetes plus 1 major ASCVD risk factor, treating to a non-HDL-C goal of <100 mg/dL (LDL-C of <70 mg/dL) is considered a therapeutic option. Cholesterol.total/Ch olesterol in HDL [Mass ratio] 3 {ratio} [facility] Interpretation and review of laboratory results Abnormal [facility] Triglyceride [Mass/Vol] 224 mg/dL High [facility] - 150 mg/dL [facility] Comment on above: If a non-fasting specimen was collected, consider repeat triglyceride testing on a fasting specimen if clinically indicated. Chantell et al. J. of Clin. Lipidol. 2015;9:129-169. Performing Organization Information Site ID: QPT Name: [facility] Address: [address] [place] [address], [address] [place] [phone] Director: Curtis Lyons MD [facility] Microalbumin/Creatinine rati o panel (U)on 02-21-2024 Albumin DL <= 20 mg/L (U) [Mass/Vol] 0.7 mg/dL See Note: [facility] Comment on above: Reference Range: Reference Range Not established Albumin/Creatinine (U) [Mass ratio] 5 NINF [facility] Comment on above: The ADA defines abnormalities [...] [Mass/Vol] 154 mg/dL 20 - 320 mg/dL [facility] [employer] Information Site ID: QPT Name: [facility] Address: [address] [place] [address], [address] [place] [phone] Director: Curtis Lyons MD [facility] No Panel Informationon 02-20 Interpretation and review of laboratory results Abnormal [facility] Soapets PATIENT UNABLE TO VOID; ADVISED TO RETURN FOR COLLECTION. [place] [place] Information Site ID: QPT Name: [facility] Address: [address] [place] [address], [address] [place] [phone] Director: Curtis Lyons MD [facility] Cardiac echo study Procedure Ordered By: Arianna Mascorro on 02-05-2024 Ao Root Index 0.86 cm/m2 [facility] Phone: Aortic Root 2.2 cm [facility] Phone: Aortic Sinus Valsalva 3.3 cm [facility] Phone: Aortic Sinus Valsalva Index 1.29 cm/m2 [facility] Phone: Ascending Aorta 3.5 cm [facility] [employer] Phone: Ascending Aorta Index 1.37 cm/m2 [facility] Phone: AV Cusp Mmode 1.8 cm [facility] Phone: AV Mean Gradient 3 mmHg Bon [employer]erved Phone: AV Mean Velocity 0.8 m/s [facility] [employer] clipsync Phone: AV Peak Gradient 6 mmHg Grant [employer] rasheed [employer] Phone: AV Peak Velocity 1.2 m/s Grant rasheed [employer] Phone: AV Velocity Ratio 0.75 [facility] [employer] bobby [employer] Phone: AV VTI 18.4 cm [facility] [employer] Mobile Phone: Body surface area Derived from formula 2.67 m2 [employer] Work Phone: E/E' Lateral 4.69 [facility] Phone: EF BP 55 % 55 - 100 % [employer] Work Phone: Est. RA Pressure 3 mmHg Grant [employer] rasheed [employer] Phone: Fractional Shortening 2D 28 % 28 - 44 % [facility] Phone: Interpretation and review of laboratory results Abnormal [facility] [employer] Mobile Phone: IVSd 1.3 cm Abnormal 0.6 - 1.0 cm [facility] Phone: LA Area 2C 26.6 cm2 [facility] Phone: LA Area 4C 25.0 cm2 [facility] Phone: LA Major Charmco 7.3 cm [facility] Phone: LA Minor Charmco 6.9 cm [facility] Phone: LA Volume BP 78 mL Abnormal 18 - 58 mL Fe[facility] Phone: LA Volume Index BP 30 ml/m2 16 - 34 ml/m2 [facility] Phone: LA Volume Index MOD A2C 33 ml/m2 16 - 34 ml/m2 [facility] Phone: LA Volume Index MOD A4C 27 ml/m2 16 - 34 ml/m2 [employer] Work Phone: LA Volume MOD A2C 84 mL Abnormal 18 - 58 mL Bon [employer] b[employer] Work Phone: LA Volume MOD A4C 69 mL Abnormal 18 - 58 mL Bon [employer] bobby [employer] Work Phone: LV E' Lateral Velocity 11.30 cm/s [facility] Phone: LV EDV A2C 74 mL [employer] Work Phone: LV EDV A4C 102 mL [employer] Work Phone: LV EDV Index A2C 29 mL/m2 Bon [employer] Work Phone: LV EDV Index A4C 40 mL/m2 [employer] clipsync Phone: LV Ejection Fraction A2C 57 % Feast Phone: LV Ejection Fraction A4C 52 % [employer] Work Phone: LV ESV A2C 32 mL [employer] Work Phone: LV ESV A4C 49 mL Feast Phone: LV ESV Index A2C 13 mL/m2 [facility] [employer] Work Phone: LV ESV Index A4C 19 mL/m2 [employer] Work Phone: LV Mass 2D 279.8 g Abnormal 88 - 224 g [employer] Work Phone: LV Mass 2D Index 109.3 g/m2 49 - 115 g/m2 Bon S светлана [employer] Work Phone: LV RWT Ratio 0.44 Fe[facility] Phone: LVIDd 5.4 cm 4.2 - 5.9 cm [employer] Work Phone: LVIDd Index 2.11 cm/m2 [employer] Work Phone: LVIDs 3.9 cm Bon [employer] Work Phone: LVIDs Index 1.52 cm/m2 [employer] Mobile Phone: LVOT Mean Gradient 2 mmHg Bon Se [employer] Work Phone: LVOT Peak Gradient 3 mmHg [employer] Work Phone: LVOT Peak Velocity 0.9 m/s Bon Se cours [employer] Work Phone: LVOT VTI 14.4 cm [facility] [employer] Mobile Phone: LVOT:AV VTI Index 0.78 Bon [employer] Phone: LVPWd 1.2 cm Abnormal 0.6 - 1.0 cm [facility] Phone: MV E Velocity 0.53 m/s [facility] Phone: MV E Wave Deceleration Time 156.0 ms [employer] Phone: PV Max Velocity 1.0 m/s [facility] [employer] Phone: PV Peak Gradient 4 mmHg Bon [employer] clipsync Phone: RVSP 22 mmHg Fe[facility] Phone: Sinotubular Junction 2.3 cm [employer] Mobile Phone: TR Max Velocity 2.17 m/s [facility] [employer] Phone: TR Peak Gradient 19 mmHg [facility] [employer] clipsync Phone: Bon [employer] Mobile Phone: Cardiac echo study Procedure on 02-05-2024 [...] Image quality: adequate. No contrast was given. [facility] Radiology Study observation (narrative) [facility] Coding Summaryon 10-25-2021 [facility] Summary [facility] HdqcrvjeWNl6pKy+PGhl YWQ+WN2WOGTtK58jfNHq cZ4YF2zFYQ3YXPLLQQUD ZQ5APF5odXI2JGijW5Lm biAv RaerbNOuOW76OLz3FKS8 hEjcUFwaaD6xeZUvJ9d2 JhRdCS62uK30VNtoXRZq PzD9DiTchcmjgICj K6fgWzWyjHHmZbe+PHRh YmxlIHdpZHRoPScxMDAl WjRxxPrhPZ8wVx7wBHIh LWNvbGxhcHNlOiBj h0hrQWYmGLniHX2sbIlg K2YmvMC2ZEDcl2s3Ph42 dHI+CPEsJKT1fPrgCDra w345WkPkd3exSQK1 gADnBLqdMVQ2Q14mf8T3 XTFkPWKgUJA6cCG1uC2g vRopswabY4XydDFqHsE6 OEI2iTJktI3zyAty mfpruF7bZbe+J68FDL2B GNSYOO2FZax8T8NcSebv dHI+AM15RNVxUS76aLPh vLSfw5skrDb4PvAs TFHrUXL8tWecYMhav2Gh NVUcQ37abYAlu0A3TSKz gZyjrGPzLgCfyYE2aR0u APatcctkz5ezlibe Osseg5xhcs17wS37F95y SJjtWMTkDBN6LVKeJGPb cVkgnw7lgB8lYp9+IDxj z0qjh7pbxSu6HaLe IXFbyrDtbKkaEAM1y6Qd Mq57O2RefZvcl8KpDuj1 io88sXXio7B6rNV8AAts ZSKmkT5kJQpmJnY0 NIPaRoDhzH39kYEwOVai Hn9dhWqbyIwgPO7bIWTu ddykGSWcrQ4wKRFvzQVp uCpgGA2nCPXbrtpm o754SyYcJKE4ZNVuyDDz P5HhcJ3tBrTpNIRmSUTl G0GqdFMwDNupG101RJzm GhD0DNVabuNsT4Pe MWLjpXikMuV5d1U8Bk6L p0QkeufcUQG7VKkwTIY9 RwUkZcLlUvR3I0PmCuq2 BSRiyZowLD3vZ7Xe VGQyoazdymlcwJC9ZTJi WQAnpB69bWEvMAmvGl6w v2O7j663TWUgRGLvdB49 Kv7wjDiuPGPliOUE mN4vknunk3qlnpoeBlVz EJFsFGi7JCx8ZIIwoBgk VfOeVRK9ZgJ8OIC7kKRf tG6zqXogbopscG3j Oyc+B24faP3lCLX4WWF5 oyxzFTUmupEuIM36TS64 N5UzXeylsLWvhJL+PGRp qpMbnFboXS8zUaKj k7kdl8VfTCglM4RvDANm OHctQbo0YFFcSKZ0nKM1 nZ1iISFpTDqwx3M9wOV2 G3VphmWfwu7kg5bu XEQsZPyaK24crTQlm4X8 CTXwmEJ4APLcaObtZxSw pY78Ved+EEFbnNxge4La Nbczq6stf6fruEh4 IjMwJSIgdmFsaWduPSJ0 y1FfMt49D98rSEslHJKt TYVxCNSdMJDnsKofeo6o uW0zIc7+PGNvbCB3 cPK3gW1nQAMdTlA4CDmb I616YaPszTZaQpabt2qq f2tnkNd2GmFwJYEzktTr fBblZAU3l8HwQo81 G30yOBtvYIFdNXWnXYJx DWUadSbmiy5lsH3zCm9+ SB4yv9kpnf75iT59vYQ+ XGAdFOP8jUmhEFwl TNKunI2mFYphZcS2WUQh UySwsT56hBNyYGbxCs6o fUxotLyuMY1bDYSrtvwu y025LjGht2mxUSUg wRDnIUsgJGK4D76vb7B3 ZLLePKHyNGH4lCK5oO1y bGlnbjogbGVmdDsgdmVy kXfjFMauGDawT603 IHRvcDsnPlBhdGllbnQg FhMdGSy6M3HfVdg6XRYz rUgdUF4rfSStRBcaDh4w uOkouAucDA7zLSVp vzwav327LtWkb8naQKOg qDEoUColDUM0J15ld9T2 ESGbSKLcBXD4bQY9dJ1q bGlnbjogbGVmdDsg ktTycGexTFxrCDkrM636 IHRvcDsnPkJpcnRoIERh zTW0KJ23AV07sMVfx6W4 bXU2K6VlICWklvvo zruewWQ0DRDoUKDrxW87 Eq1nqImxXj4vGSYsCZX2 CBWqlLVpU8JdiU8kAgWu CFOuCQCiH1UczEAz MNrfB223VIevXyM1GOEn grUgN8PaCPEzyNzuQxV6 y3U0Mg1RT2F0AP61DW39 lLVrn1O7oDK2A1Ko OUIimwykxhyfxML1AOAx YNUlvG31Cx0wgRjtIz2a WJLqJKM4MVWxlRAfZ4Px kX9jXvTjNUIlACCb X9KygUVnYCvjH027LWou XoN7WYTuyiPeA4CzJQKo fBiiTdG1s6A5Zm2TULr4 YZ48MC89zFWjp1P9 yPV7E4DbLJYpkaabczxh xAO0KCXjAPAblM28Pz2k bYihWs9yNAFtGTJ3ZQNa nOSrP0PwhK5tIpDo EEJrXDBmC3HoaXSpAPkx R507RSzvFcJ5SMDcxrUn P3GcJRGlfKymSlZ5c9R0 Pp1EKKFsSJ37RWM5 nIM7LW43BM43A5NcUlgw dGFibGU+PHRhYmxlIHdp ZHRoPScxMDAlJyBzdHls ZM9dHz4xAOIdPCLa tCkevDLrFfMkb2bnXGPo KQymZX3daGonH8VygVE8 BLWtm1u0Vv52C18tI9Ag dXA+GGFvjCO1mTZ4 qA8mCkXvNcT5BEseX667 GtYpcACvUahxk9wbi5zv jDd5PqR9USJwowOeuOqw AFC5u9CxPd49L57p IHdpZHRoPSIxNSUiIHZh cRxuzg6ufV5fFf5+PGNv uKN8gWV7mL1iIuZpSwX1 ZPktM483YbIyuOYj Tnmgz8wnx2kkpLu0UrXa WNMxuiIrzFyqQGE6w5Jg Kq32H5NjbXmav7PwHee3 qg08eIVtn9Q1yHA9 R1JmKAYvweeeoJEavCyw SI5oQNYlfugsLABfhQ4g KXPvD9e3MfGcKqF1IInc Z5HclgZ0XNQcmCGv GWuwGTB3I66gk0P2YVKp JFBbRCT8cVY4xO9saThb bjogbGVmdDsgdmVydGlj WEhgHGypV485ENJr oBosPARqoO2gEBIgbZKo pPjvFI7lHSBdrnktMybO QkVSTElORywgTEFXUkVO I8SxIEqktAT+PHRk LDG1yGjtXUfiXKSobW0n TZUpV1r6UaLjJaX5XBtk Z7FeXOEnoyfrMm21tY3l JyBeSjV3VTgqN8Go rqP7PLZntOJzLBntVCA5 C04bt6P8ZREvWRFpWIF1 qHT2pL8phQqlyewsdGQv dDsgdmVydGljYWwt OYbdB718EUVdjQmwQmO0 VkTjPmE9TIe9S7OmEfu3 HGRyzAonQL0hlPYyNJda Lc6chDsehKtoIF5h YIRexgtnCKHrfV7bSETn bYVszOlbIQ0xNHBejyrl s222OnTvAME3ZIXmkCBb C3NezO1gThDnCXHe GCYmO9FdnEXbDWcyX078 IOkcZzW3APLiuqAgF3Nm LCNtwRawToD6b4H5Wf15 MyBZZWFyczwvdGQ+ BGPrRVT3lEzcDWmsCKNj aB8pJQWiU4q6PyJkEhS5 KIdlJ5UnEEHywcosKd38 vG9rNkTpHmL3YMme H0QvnaM3MRFupPKrAXhn HKN4O14os6O2LVQkGTBx OSF3yYV2tN0tfYpopvpb bGVmdDsgdmVydGlj EVgsHZgmH441WCJmiAcj Za0TQUS8L9TiOmb3HMQe mFxjDJ0uyTRsCHiwYj6z kAwjfCedTI3wDRQc tmxnRGCpuB0eNJEtsAWg uFyfKO3gRNHofcvxe362 PiBeDYB8DLOebGNwI5Qn mT5pBcMjTWWnRJCb D1KabFFiDKlyL735NMdv RoG8FKOqaeNbE2QvWNUa rWcoLhJ9b2Q6Gw7UEKyn dGQ+WD33gw77W1Ji ZkvpGbr5LUPgNLV8jDZ3 cD7yZEJhVGkyc8B7qDN3 U7GmeeBeih8or8tnGXGl WFamD64xoMYwi3R4 UGTcqOR9PZVrqNwxNoHj tA04Eoc+LKGcvYkzd7Rb Vcxvn7hvo3zywPv3JiLa JSIgdmFsaWduPSJ0 h6KoPq59P59gICqkRTMb XBKcCHUpERQdmUpvvf8s kV0rYs8+OYAzcLE0zXM4 tS8wNuQsJkK0GGsx J243CvQiqOBtDgwny9gh q8izjZv2VzTtWDKuczLg aCahFXP8v6EwLe33C4Tw eOvns5MxPhd7ky46 dCWmk5G7qSC1T9RjIFXe rwgprCNqbKexPH6rIDRm jcmoXWAtoJ0sWHJqL6n8 JlTpDfB5ZKejD2Gp npY6QZMyhPRhYUQkpHZE fK2zgyumd1kjruyyCzFd XUMjVGf9SNt1HYKhcLyt JnTeEEF3BqF5JIA3 yRUjyQ7idHwtnksnrT6n Oyc+SZb5i3msyYAmLN0k xGH8MR73BC57dLFmk9Z8 rSG5J6UeXLHlzbuk pugrlHP2IMVoMOHylN36 Na9mvZifXr7sBVKwHUJ7 MZLmgQFsY0OnkQ7aAtZx KCRfNSGjF6IbaIMs ZCalM682WRudDaN7MYVp hoHuZ2ElEGHeyUlqBvZ0 x2V3Mz7IEV72EB41PC31 kBJfn4C0yGO7Y3Qm DBKrokwkrdsnvGO1TYLb TBDvvL03Pw3oxBqfWz0m LVIjVMR0WOUqvFOiX9Xt hA9rRrZnGULhUYOh V1UzgQGlDXltI844WRst MiS3FPPvegAvO4PlUBMr lQbgOdD7h9V3Yz0DEl53 HZ45BR02pJGez0T7 yCD0A4GaHGYoyhfvnfqv wOI4QTFrIPKgnS61Eb1j uTjoKd2kNATxMQO4JIEu wNClQ2NbeV3gXtMt PWNfOPJgS7PaxFPaAXjk S662LMnxHaT9DNNtbnWp F7CkFEZhbUdbSqY1n3L2 Xc0IOHfbcjd9Z7Hm PjwvdHI+CC40IHHeQH96 mIQhmAXaj6xreBt2IjWj RGVxNXJ1oXqwKPide6Vg BTKqN68gfLTfh7Y2 IGN (more content not included)... [facility] Coding Summaryon 10-04-2021 Coding Summary HTMLBase 64 OumnwnefTXn6gYq+PGhl YWQ+QM3FYPXlN35bbHRv xF4FL2zDIC5ATHVHHFUM LA0SKV5uqPD9HJklV7Xl biAv YytegZMmRB16RLt1KKG2 jJsuRKgaqO1xgXCeQ7j4 AqOnSR69gU54TQknVEGu CjG2RtDekmikdDOt I0htIuNkqGAbYij+PHRh YmxlIHdpZHRoPScxMDAl RvPbbOotAO8pBk2sTABk LWNvbGxhcHNlOiBj h6veGKEqEJsjFQ0edShi I1UdyWF1TUDxe3w7Yn87 dHI+LGJrDWC7gZrpUIvx m615StBfr1ccXHJ8 bPYpYRtuFUR0N28cn1I6 OEGnEQZxNDP6dVF4lG8y vWcvcpgaN1KmeDKaNgO7 BZJ6rLQpjV8luMpm wyyurE7jEem+W02BXQ3T SVSQXE7OYmn4G7PtWowf dHI+HP15UCRiKE09dCIs dZRba8ltxNk1DiDf VJIlOIE6gPdxEIhcs3Ix MJHpS40rlOIld4K5NDQl iNnhvZUxSoLqzYK4fI4k YRysqywlg6wmucfp Pigrq3wbmj42lU36A64d GVefTKBzFKI3FKOoUOZu xEopnd5vnW1yBu4+IDxj x9plx7mtiZa4OiUa UUHqmtWaeHtzVRH7h1Ty Ug44G1ZflKaar9PyGaz0 yu35fQYcw5J6iQV0WUrc GDIciU7vOXpvZwR8 OTTgMwExrV36qECwNZxv Rr0fnRadlQfnWI3cQZJv ouhrUPOuvR6qWVRbhLAz mWnzNV5kXXJpgupr y112ZaIhFLG4AVOqtXJn W6NvoY2nYwKsJGVvPYQy L5DneYGuSMdbC090MJmq YeA1NBRucmRyJ8Ke LKFqcGgwSfD1g7C2Jq9H q8MkqqlyCKP7QUhuQZL6 WhPuYuRwYcA5O7KjFuf5 OEIxfBjhJR7sB0Ww ZZWcdqojvkwjuPP6MUEr ENUzrZ84sFUyLEttBd2o x3H9l462UZZoYWMryL61 Em3clGdjEBWutILR uJ9wnqkld1lwqefeWxKl PHRiMMk6RRm1PTNjyWtv XkPuYJW4AcF7JPQ1pBFz jQ2rvRpqdjhafC6s Oyc+H27xpC8iIKG5HJQ8 svioHFVunsTiSY66KK76 N9PoCbyssZYtyKC+PGRp qjVklLsdOQ5mDrXj a4aic0WjDFfaZ3AiRLRx ATnwRpr3YEGmMSO3lLL1 iB6vQGBbZJaxl5G2nLR4 D0ChnhHsah2sv5dp UVNlUXtdK05ywNGuz1Y7 AKUhiMK9QLCnuWciVaPp eF67Suz+ZFXefYebc0Tm Qiais8njk4mlnHl5 IjMwJSIgdmFsaWduPSJ0 a0XxOc83I67jYCjhBGFl KZAkGRPjBZAmqGsbrq1p sK8rLy7+PGNvbCB3 fKV3qS8eDWHcUuC0IUou F291LcNprHAfGbdfs7qv d2jelBo5VjCqIGOkdwZe pQakZKU2o1HkHa24 L63mVTyeVTVsMEDsTGJk WITldGgaut2dtU9wQp9+ KV7bl1mcoe70gW85qOO+ PBBrIQZ4nWjbHZjp QAVwlY4rIYouHtC0JWHa HmEdkA10kQCuOTycQs7q ySzukZfgHQ9uOONsjeey r085YuBfq8zgPENn oPDdGCebTPS9L56ew7C7 WUFhDBVnGEW6oUP6xZ6x bGlnbjogbGVmdDsgdmVy dQkvNOvuLRugL385 IHRvcDsnPlBhdGllbnQg FrKoGPo7L5GfJbl8FUWj xNxiVQ3gbEVxXJpvGs9n nEncxFwhNC0gSEId qkwtx859EyOne1iaVEHi nDCuJTtaHRS3C47fi8W2 LOTdBLHxDAF6eTX8lK9m bGlnbjogbGVmdDsg apLhpSvwBDofPQodL623 IHRvcDsnPkJpcnRoIERh wDK1KS22TV60gICds2W8 vXD0J0QmGHDaismv lphpvDS3WJNzPPUorS73 Ye8gyUsiNk1fDZEdPRZ9 AKFlbWYqA9AstE8vXkZg KJXlXNAfS9IotZHy HZvpL045AQuiKvH4HQIf zzHoG7GaOHUcnOygNsM1 o9T6Rl3JD1S9BJ36AG58 aOSas8D6wXL0Q0Km DVZspfjmyjdiiLQ4SAHw RKIczO28Lp5yeDzcHy2e GSDsSKK1SWChcXKrM6Eh jO9aFaDuNILvXQIq C8ZraQFcTZxqM219RBji JxZ9AMDqyqFeU8ZvKZMy jSjmItM1s3U2Yw2TBYl2 ES29UE01uMHbi5Y5 bNU3I9GrAFZehgjocyji qHF5XWZxQESaaK48Hn1f kXneLr4fYLWqGWV7PFIl pGYyL1XekJ3xVwVs XLYbOMMmC8RwuEIpIMvc T794RVuwXwN2YSYojaUf G1VkAFBrqRrgXcN3f1R8 Jd4BTBPxTA38RXW3 aER7LK70JE40V5MtQhha dGFibGU+PHRhYmxlIHdp ZHRoPScxMDAlJyBzdHls AN1mKa5qRHOsMTCd tLueiSDmMtTdl2ccOSFx BXjzFA1pcUatV3KuoGH1 QOYeb5s4Uw93U46mF1Ki dXA+VQHdnNV9tYD1 xO8yTyAhAeB0NUdoR755 RbThpNHtUtpbz8bzm5dg vIm8NtN3CDMzauTyeExv ECG1m9QqDf67T12z IHdpZHRoPSIxNSUiIHZh wJmrpp8skL3iYq8+PGNv gOX3lRU4oB9rFgXpVdM2 LSrvT310ErHsrVBj Vfwbf0oax2ywoIb1QzIw VBAyamBygNcwIRM7p5Uh Yb82N7MitCctf2RxYvc1 at26mWRiy8I0tIT1 J4GcZRPsazdgpSPycAhx VO5fAWYxsiicWKYepQ0k FMQtJ2i2WiSnQfB6QWbu A5OvplA0JLAobZGa JKdtQKL3H13kq2L0RPTm ACPxRUY9pTY1kR1ioHzn bjogbGVmdDsgdmVydGlj HCnqMSteW413SCWp fFhmLEKpqW6mQQFilWEt aCgrOE7nRBAeubmkFpoJ QkVSTElORywgTEFXUkVO I1MhOAqsdWB+PHRk ZXU7hEwvSKpmFBBomU4b DQSiU9k3XpAbBdK1TDcq D9AbIAKitfsdTy31fB3a NyJxPuV2SSwmH7Ne pkC4OSEayPJhXIawORP8 E00kd9L2MOFyJDSlEJR3 aVX2aA9noQhharhwtATn dDsgdmVydGljYWwt JUavU202VFCpkTxeCjD1 JcBeBbQ3TRb1S2NpNqn5 DBZdeJgoDR1woDMuMYlf Aw1crGkywBhkHX3v OSGmxqqsWFUeaP0bAZUu wBYucZawIJ4aUZLgmtmj w243RmGrRQU0TOZpwVMf K4BlgQ3tWtQaTYAq RRFgV0DnxJVnQFrhM270 MLwhEtD2GXIqmmVdH6Wq AGZdfGpeAkL0c7A8Sa81 MyBZZWFyczwvdGQ+ RCFnVNG4tQooQMjoFSXu oY7dVCRxT5v5KfUePiI5 XLdcX3ZsEHRggrekGk84 gC1fQkQyNbB1KMix M9MyvrD9TPQpuSShJCcx OAD3J23eu5O9RWUuOCDs ZUA4fWI8eU7jiIydgnvn bGVmdDsgdmVydGlj BKzuJTraG119VZAsbRmf Qv1ULNM9W5VkPml8DONe nGqqHZ5xqDTjOWkaId3g cQlxkBacRU7sAWLh wwltDEIcyA0wREWzwTYx jBcjHB2bGIXaqgffr455 OdBsAIL4OYFzvTUqK9Gm xJ2iPaMvZMNcDQSq T3StiVSgOVuuV102HDkw CiL1VRFwvoYwO8IjMFJj rCcoTyC9c7W8Wk6YLxXt cnZhdGlvbjwvdGQ+ RO24xm16J2FvLayqCqm2 ARUaMAS4jWK8yY0rCCDo YTngu1O8xQY7F5SxgtSg dm5ra0shYHSiTJym T02gsRAwp7A8IYYebZS1 OUGwoYmsAqNwrT17Zgi+ JHDlsKglt0UcOijag3kl t9eenIm0UdHlLTTp chBpwWllTGQ3y1BsYg27 Y07cIVgiIUUqLZWcVPEc RXWewQmkne3lsU7dUw3+ XCWohME9dTG4nJ5y MgKtDeW1RAfhG266BqKx fFKbKdnbe6fjv6imzMa0 IjIwJSIgdmFsaWduPSJ0 l1AfBo13K4SpeBsy q7OaUbv5sn38sECgp7P3 cBJ1E9OsUPJuaqxspDFy tKunAN3nSJUknfrqUCOr dO3cYYLzE3o7DcPv TlJ8OBaeO4IcufM5PPTg pDTbYTQzjUMAsU2hxswk p5yuhyhxInPvDWIySTo8 WMn1WZRkiJxaSmUb MQL0QeS4BGA1dCToqB0b jKkeatdkhJ0gGzn+UGh5 e0disLIqUQ9fmNN5SW05 GW04yGZge2D7qQJ6 K3CsINZlaqmxmcbwaTU9 RVItKGKraP18Zl8dbAgy Zp2qNFDbFYR6QESejWBo S7MfdZ7mEaIeFGUk IMAnL3HctOMpGHuuP862 JIrfExL8GXZqzbSnG9Pj QGRlsZffDeJ8b0O3Hv4E HH45OL95UH68fOVl s1M7cSX4Z1PaMVMjagyt qniefUM9EEOtOEBloL81 Ko7cmCghTf8cJWQuBMW3 XHJfdAVwA5ZteL8l UjLmPHPzOLPnM9FsnJMh GNfyJ555WElrUyT6QLYh esFaI4PoPQSauFohQuF1 j2R8Vg2HLr88JX91 ED39nBVnr3E0fAV6M9Lx AMRxvufmpsshuSH2SVRi WZPooF43Hz9csRvjRe1i BWUnPYS9BEMtuOIm R4PjxO8yLePgNMSaZWRb W4LrqUJmTRriY440PGhs VjA6MXCnseZlE7DcZSFo pUxbHaL2v1S9Xz6X JNzvime7H7SeWcikhUC+ EO63AICpSV71xSSouABd k0uftTj4KuKbVTCmKDX3 uSnuCNdcr8UhKRJh Y29 (more content not included)... [facility] Consent Formson 09-23-2021 Consent Forms [id number] [facility]-20-2021 Consent Forms [id number] #1.00OTGTIFF [facility] MAGR Postoperative Recordon 09-20-2021 MAGR Postoperative Record MAGR Phase II Record Summary Primary Physician: DAVID AWAD DO Finalized Date/Time: 09/20/21 10:05:40 Pt. Name: ZAINA WINTERS D.O.B./Sex: 1950 MALE Med Rec #: [id number] Physician: DAVID AWAD DO Financial #: [id number] Pt. Type: O Room/Bed: [facility] Admit/Disch: 09/17/21 08:03:00 - 09/18/21 12:10:00 Institution: [...] Signed By: Vianca Celaya RN 09/20/21 10:05 [facility] Outside Recordson 09-20-2021 Outside Records [id number] [facility] Provider Orderson 09-20-2021 Provider Orders [id number] [facility] [id number] [facility] Telemetry Stripson Telemetry Strips [id number] [facility] Electronic Messagingon 09-19 Electronic Messaging --- --- --- --- --- --- --- --- --- From: Ej (Jim), Ej To: ZAINA WINTERS Sent: 09/19/21 04:18:10 AM EDT Subject: Discharge Summary Ready to View A summary regarding your recent visit is available in the Documents section of your Health Record. [facility] .Auto Diff 1on 09-18-2021 Auto [place] % 9 % Normal 1-12 [facility] Comment on above: Performed By: #### 1 [id number], [id number], [id number] #### [facility] (DEFAULT) [address] [place] [address] 03982 Baso Abs# 0.0 x10 Normal 0.0-0.2 [facility] Comment on above: Performed By: #### 1 [id number], [id number], [id number] #### [facility] (DEFAULT) [address] [place] [address] 71629 Basophils/100 WBC (Bld) 0.0 % Low 0.2-2.0 [facility] Comment on above: Performed By: #### 1 [id number], [id number], [id number] #### [facility] (DEFAULT) [address] [place] [address] 26051 Eos Abs# 0.0 x10 Normal 0.0-0.4 [facility] Comment on above: Performed By: #### 1 [id number], [id number], [id number] #### [facility] (DEFAULT) [address] [place] [address] 86942 Eosinophils/100 WBC (Bld) 0.0 % Low 0.9-4.0 [facility] Comment on above: Performed By: #### 1 [id number], [id number], [id number] #### [facility] (DEFAULT) [address] [place] [address] 33634 Lymph Abs# 1.2 x10 Low 1.3-2.9 [facility] Comment on above: Performed By: #### 1 [id number], [id number], [id number] #### [facility] (DEFAULT) [address] [place] [address] 93580 Lymphocytes/100 WBC (Bld) 9 % Low 14-48 [facility] Comment on above: Performed By: #### 1 [id number], [id number], [id number] #### [facility] (DEFAULT) [address] [place] [address] [place] Abs# 1.3 x10 High 0.0-0.8 [facility] Comment on above: Performed By: #### 1 [id number], [id number], [id number] #### [facility] (DEFAULT) [address] [place] [address] 12288 Neut Abs# 11.6 x10 High 1.5-9.2 [facility] Comment on above: Performed By: #### 1 [id number], [id number], 7893549 #### [facility] (DEFAULT) [address] [place] [address] 00669 Neutrophils/100 WBC (Bld) 82 % Normal 44-88 [facility] Comment on above: Performed By: #### 1 [id number], [id number], 4130842 #### [facility] (DEFAULT) [address] [place] [address] 95146 CBC w/ Auto Diffon 2 Erythrocyte distribution width (RBC) [Ratio] 14.0 % Normal 11.5-15.0 [facility] Comment on above: Performed By: #### 1 7436395, [id number], 5205921 #### [facility] (DEFAULT) [address] [place] [address] Hematocrit (Bld) [Volume fraction] 36.8 % Normal 34.8-51.9 [facility] Comment on above: Performed By: #### 1 [id number], [id number], 4849246 #### [facility] (DEFAULT) [address] [place] [address] 11187 Hemoglobin (Bld) [Mass/Vol] 11.9 g/dL Normal 11.8-17.7 [facility] Comment on above: Performed By: #### 1 7523299, [id number], 5140402 #### [facility] (DEFAULT) [address] [place] [address] 39722 Instr WBC 14.2 x10 Invalid Interpretation Code [facility] Comment on above: Performed By: #### 1 [id number], [id number], [id number] #### [facility] (DEFAULT) [address] [place] [address] 64192 Man Diff? Auto Normal [facility] Comment on above: Performed By: #### 1 [id number], [id number], 3473921 #### [facility] (DEFAULT) [address] [place] [address] 53716 MCH (RBC) [Entitic mass] 30 pg Normal 24-34 [facility] Comment on above: Performed By: #### 1 [id number], [id number], 5386544 #### [facility] (DEFAULT) [address] [place] [address] 17977 MCHC (RBC) [Mass/Vol] 32 g/dL Normal 26-37 [facility] Comment on above: Performed By: #### 1 [id number], [id number], 1191530 #### [facility] (DEFAULT) [address] [place] [address] 23389 MCV (RBC) [Entitic vol] 94 fL Normal 81-100 [facility] Comment on above: Performed By: #### 1 2103550, [id number], 4097564 #### [facility] (DEFAULT) [address] [place] [address] 59329 Platelet 181 x10 Normal 138-427 [facility] Comment on above: Performed By: #### 1 [id number], [id number], 3912294 #### [facility] (DEFAULT) [address] [place] [address] 07886 Platelet mean volume (Bld) [Entitic vol] 10.4 fL High 6.3-10.2 [facility] Comment on above: Performed By: #### 1 [id number], [id number], 9479083 #### [facility] (DEFAULT) [address] [place] [address] 75585 RBC 3.92 x10 Normal 3.70-5.30 [facility] Comment on above: Performed By: #### 1 1640842, [id number], 7344842 #### [facility] (DEFAULT) [address] [place] [address] 48482 WBC 14.2 x10 High 3.5-10.5 [facility] Comment on above: Performed By: #### 1 8014042, [id number], 8144209 #### [facility] (DEFAULT) [address] [place] [address] 39060 Electrolyte Panel Standardon 09-18-2021 Anion gap [Moles/Vol] 12.0 mmol/L Normal 5.0-19.0 [facility] Comment on above: Performed By: #### 1 5492031, [id number], 7225297 #### [facility] (DEFAULT) [address] [place] [address] 60874 Chloride [Moles/Vol] 98 mmol/L Low 101-111 [facility] Comment on above: Performed By: #### 1 6137762, [id number], 8243866 #### [facility] (DEFAULT) [address] [place] [address] 88317 CO2 [Moles/Vol] 28 mmol/L Normal 21-32 [facility] Comment on above: Performed By: #### 1 [id number], [id number], 6119048 #### [facility] (DEFAULT) [address] [place] [address] 20211 Potassium [Moles/Vol] 3.8 mmol/L Normal 3.6-5.1 [facility] Comment on above: Performed By: #### 1 1646182, 7675383187, 9448861 #### [facility] (DEFAULT) [address] [place] [address] Sodium [Moles/Vol] 134.0 mmol/L Low 136.0-144.0 [facility] Comment on above: Performed By: #### 1 [id number], [id number], 8926382 #### [facility] (DEFAULT) [address] [place] [address] 58892 Inpatient Patient Summaryon 09-18-2021 Inpatient Patient Summary [address] [address] Patient Discharge Instructions Name: ZAINA WINTERS : 1950 Patient Address: [address] [place], [place] [address] Primary Care Provider: Name: Jeannine Hurley After you are discharged if you find you have any questions, please, call [phone] ext [phone] to speak to a nurse. Discharge Diagnosis: [...] problems; contact the [facility] 05/09 Crisis Hotline -Text 4HNYM xp 825448. If you received any narcotics, sedation, or [...] business decisions or sign any legal documents [facility] would like to thank you for allowing us to assist you with your healthcare needs. The following includes patient education materials and information regarding your injury/illness. ZAINA WINTERS has been given the following list of follow-up instructions, prescriptions, and patient education materials: Follow-up Instructions With: Address: When: Marina Redd [address] [place] [address], [address] [place] [id number] Business (1) 10/01/2021 11:00 AM Medications During [...] to tolerance (more content not included)... Normal [facility] Pharmacy Noteon 09-18-2021 Pharmacy Note I [...] [Verified on: 09/18/2021 10:36 EDT] Emiliano Montgomery [facility] Progress Note - Nurseon 08- Progress Note - Nurse Discharged to home. Prescriptions and instructions reviewed with and given to pt. He verbalized understanding. Taken to awaiting vehicle via wheelchair. All belongings sent with pt. [Electronically Signed on: 09/29/2021 14:49 EDT] Mildred David RN [Verified on: 09/29/2021 14:49 EDT] Mildred David RN [facility] Progress Note - Nurse POC discussed with pt. Educated on safety and ADL care once discharge home. He verbalized understanding [Electronically Signed on: 09/29/2021 14:49 EDT] Mildred David RN [Verified on: 09/29/2021 14:49 EDT] Mildred David RN [facility] Anesthesia Noteon 09-17-2021 Anesthesia Note Patient: ZAINA WINTERS Age: 70 years Sex: MALE : 1950 Associated Diagnoses: None Author: Eugene Castaneda MD Postoperative Information Post Operative Note: Operative Day. Anesthetic utilized: General. 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 Aftercare following left knee joint replacement surgery / SNOMED CT 073155089 / Confirmed Resolved: COVID-19 / SNOMED CT 7609910888 Resolved: Diabetes / SNOMED CT 782606540 Physical Examination VS/Measurements Vital Signs (last 24 [...] on: 09/17/2021 14:12 EDT] Eugene Castaneda MD [facility] Anesthesia Note Patient: ZAINA WNITERS Age: 70 years Sex: MALE : 1950 [...] All Problems Atrial fibrillation / SNOMED CT 92611178 / Confirmed FH: hypertension / SNOMED CT 786032744 / Confirmed History of post-polio syndrome / SNOMED CT 525770183 / Confirmed Aftercare following left knee joint replacement surgery / SNOMED CT 566198415 / Confirmed Resolved: COVID-19 / SNOMED CT 3228390917 Resolved: Diabetes / SNOMED CT 945104764 Histories Family History: CA - Cancer of colon Grandparent Heart attack Mother Grandparent Tobacco user Mother Father Brother Procedure history: Arthroplasty of knee using cement (793723137) on 03/02/2021 at 70 Years. Back (430780140). 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 Review / Management Laboratory Results Plan [place] Society of Anesthesiologists#(A SA) physical status classification: Class III. Anesthetic Preoperative Plan Anesthesia: General. , Regional adductor canal block for post op pain control per surgeon request. Anesthetic plan, risks, benefits, and alternatives discussed with the patient and/or family. Patient verbalized understanding. [Electronically Signed on: 09/17/2021 11:19 EDT] Eugene Castaneda MD [Verified on: 09/17/2021 11:19 EDT] Eugene Castaneda MD [facility] MAGR Intraoperative Recordon 09-17-2021 MAGR Intraoperative Record MAGR Intra-Op Record Summary Primary Physician: DAVID AWAD DO Finalized Date/Time: 09/17/21 14:17:42 Pt. Name: SINGHZAINA D.O.B./Sex: 1950 MALE Med Rec #: [id number] Physician: DAVID AWAD DO Financial #: [id number] Pt. Type: D Room/Bed: 229/1 Admit/Disch: 09/17/21 [...] Role Performed Surgeon - Primary Anesthesiologist of District Home Economics Agent Record Time In 09/17/21 10:35:00 09/17/21 10:17:00 09/17/21 10:17:00 Time Out 09/17/21 13:32:00 09/17/21 14:10:00 09/17/21 14:10:00 Procedure Arthroplasty Knee Arthroplasty Knee Arthroplasty Knee Total(Right, Knee) Total(Right, Knee) Total(Right, Knee) Last Modified By: Zhanna Urrutia RN, Erica RN Baumer, Erica RN 09/17/21 14:17:37 09/17/21 14:17:37 09/17/21 14:17:37 Entry 4 Entry 5 Entry 6 Case Attendee Sue Rodriguez REGULATORY COMPLIANCE COORDINATOR Marjorie Esteves CST, PA-C, Matthew J Role Performed Extension Professor Scrub Personnel Physican Leather Dresser Time In 09/17/21 10:17:00 09/17/21 10:17:00 09/17/21 [...] By Zhanna Urrutia RN Scrub 10% Povidone-Iodine Braden Prep Area (more content not included)... [facility] MAGR Intraoperative Record MAGR Intra-Op Record Summary Primary Physician: Finalized Date/Time: 09/17/21 10:39:41 Pt. Name: ZAINA WINTERS /Sex: 1950 MALE Med Rec #: [id number] Physician: DAVID AWAD DO Financial #: [id number] Pt. Type: D Room/Bed: [facility]/ Admit/Disch: 09/17/21 08:03:00 - Institution: Case Times [...] RN, Brayan Altamirano Role Performed Anesthesiologist of District Home Economics Agent District Home [employer] Agent Record Time In 09/17/21 09:55:00 09/17/21 09:55:00 [...] Signatures Signed By (more content not included)... [facility] MAGR PACU Recordon MAGR PACU Record MAGR PACU Record Summary Primary Physician: DAVID AWAD DO Finalized Date/Time: 09/17/21 15:19:58 Pt. Name: ZAIAN WINTERS D.O.B./Sex: 1950 MALE Med Rec #: [id number] Physician: DAVID AWAD DO Financial #: [id number] Pt. Type: D Room/Bed: [facility]/ Admit/Disch: 09/17/21 08:03:00 - Institution: PACU Case Times MAGR Entry 1 In PACU I 09/17/21 14:10:00 Discharge from PACU 09/17/21 15:15:00 I Last Modified By: Vianca Celaya RN 09/17/21 15:19:57 Finalized By: Vianca Celaya RN Document Signatures Signed By: Vianca Celaya RN 09/17/21 15:19 [facility] MAGR Preoperative Recordon 0 09-17-2021 MAGR Preoperative Record MAGR Pre-Op Record Summary Primary Physician: DAVID AWAD DO Finalized Date/Time: 09/17/21 10:43:23 Pt. Name: ZAINA WINTERS /Sex: 1950 MALE Med Rec #: [id number] Physician: DAVID AWAD DO Financial #: [id number] Pt. Type: D Room/Bed: [facility]/1 Admit/Disch: 09/17/21 08:03:00 - Institution: Pre-Op Case [...] Signed By: Vianca Celaya RN 09/17/21 10:43 Normal [facility] Nutrition Noteon 09-17-2021 Nutrition Note Pt [...] with in house available Ensure Compact BID. Normal [facility] Progress Note - Nurseon Progress Note - Nurse IV fluids stopped for good PO intake at this time [Electronically Signed on: 09/24/2021 15:45 EDT] Raquel Duvall RN [Verified on: 09/24/2021 15:45 EDT] Raquel Duvall RN [facility] XR Knee One or Two [...] MD 09/17/21 4:07 pm Technologist: Abilio AMIN [facility] Progress Note - Nurseon Progress Note - Nurse Pre-op phone call complete. Reviewed arrival time of 0830 on Monday09/17/2021 and pre-op instructions with pt. Pt voiced understanding and is without further questions or concerns at this time. [Electronically Signed on: 09/16/2021 09:25 EDT] Brayan Roach RN [Verified on: 09/16/2021 09:25 EDT] Marley SUTTON Joycejaelyn Altamirano Normal [facility] 2018 Novel Coronavirus (CoVI D-19), JULISSA LCon 09-14-2021 SARS-CoV-2 (COVID-19) RNA JULISSA+probe Ql (Unsp spec) Not detected Invalid Interpretation Code Not Detected [facility] Comment on above: Order Comment: [phone] [id number] Result Comment: This nucleic acid amplification test was developed and its performance characteristics determined by [employer]. Nucleic acid amplification tests include RT- PCR [...] result in this assay. Performed At: [address] [id number] Zay Landa PhD Ph:[phone] Performed By: #### [id number] #### [facility] (DEFAULT) [address] [place], [place] [id number] Coding Summaryon 09-14-2021 Coding Summary HTMLBase 64 ZyprdmhzLJv6nOd+PGhl YWQ+YE2MXQCrK07aeKHx vC0XD4qKQV4NIRXTYOMS JX0KZR2umZK6XOazZ7Os biAv FzjyhMQrAN24KWf9CXK6 aHcgMTspuV7cnPCgF5w2 BwFxBA43uK76QQluDAWe KtH8JgGkdxoleIDy I8dfFmIkaSIqUge+PHRh YmxlIHdpZHRoPScxMDAl QmVxeHkmVH2xEd6qWZXn LWNvbGxhcHNlOiBj w9czWENtZDmlZQ9flZcx A2HmeFY8LMXuw6n7Qj30 dHI+DRYyTTL8hQngPQke w284PtYpm6frAIS7 uGXxKBzfDCD3K88ab4G6 FZIcLHJqJUA0nXJ4mJ0f pPaentodZ3TluWIwDsD2 HZY1tUMpeH9eiVxm dkgjvG0uAdv+Z35OWP9K HCAWJK5IMes7B5ShZxpc dHI+ON19OOTzWA11pQJm aTWrx4jpjMz9DbMz DUAuKPT3fAstWEqul2Ui YVExT75miLKrq3O1JKZb lVworFNrKxGmsAL0eG6i NLiezavnh7xiztxs Qwjhb1iili21mE97B09p RZqyUANcKXH3SXTlRCJt cLoryu9bfF5lMn1+IDxj y4huz2cnlYk5PsIp NMPxchFqqPzoLHW4s3Pw Ft42X9BolHtqk5SaLnd0 xs29aBJmg5Z5bRG1GDjb OFBxzI8wLCdvNvE2 QIIlVgSnaY43mSRhKJyr Xn4uvQmsyFyyRT1bJQVk bxndPLFtnT0bRLAmjKEj bOgiUB5tBIWfrpdw i894DlQpCRL0LITopANr M0YloX3zDcFvCQFdWXVj N6CwuBPvYHsuP239XWhz JzC2ZSJfhkYvZ0Vf HFLqyMsoVzC3b4I3Um1B u2QylqvkKVD9XTssXPS4 XcXdQsEdAzZ6M5VxNhb1 IRVvpPmfWA9tM9Zs NQEaioegqeotyEG6USLx ABFgsL57hVPsUImhGb3q f4B0r534SAUvWWGisR35 Vq6ppXyfFBXntCNV cI5rokkab1buambzMkZv PCAdCPp2TRp9CMPlpTnk HmWvMZV9HqH1NCY0qSGi tW3oeKvuxykyxC9w Oyc+T68knZ3nQWX7CCX7 fzzpLTLzasCeUV15XZ96 G1BlDkzchXSlsHA+PGRp ahRzgXjdCJ0nBcGx e3nkp2PjTFbeS7EmNDAu FXhiWsb1PJXaRAU8dQZ7 fJ6oSEOfIFtsh3E2gPB3 P7VvpuVotj2ls7zy JEPbCPgvA01uaKNfz4K1 HSVxgBN2EIDkoPquImBs oT82Dxo+NHHltDsgb7Ot Yztiz8slr3fluTb8 IjMwJSIgdmFsaWduPSJ0 x2TyDj81E92iXYpjBDSh NRGtNUNeOIHmoXqnwt9b iZ3gCt9+PGNvbCB3 uBE8fB0lZAXyKkD5IQou Y015XwCeoMXbMmdik3cl g0tyxUa5DsUkJWFeokQe xHfyGCK5t7NjVk92 C18uSYpyDLVxSEQkDBDv LXFhaYcoru5vuM1jMt4+ DC7ap0hpaa84sR79eUY+ BVIzVBF3gRtyBOpi CFQsjM6jVGpwXeP1EQPe VnVzyU12eLVgTYwqDz0y pBwgnKbsVV8pFELvgffi x850RnEbp9jcJCHi fEBhUYreFJB4W86kw7J2 LLKaTQHqVUZ1oYD5mJ3s bGlnbjogbGVmdDsgdmVy hFpkZMzqBEanD025 IHRvcDsnPlBhdGllbnQg YzDzFVy8I1RyRcp5LWGo zVfgFC9bvXIjUWlkMn3a cGdlzPgxLO3iRQMe ayjkx818QwUsy7bjSRYq bGJxVJnsNJV3H65vf3G4 FDOlNKYaHZK6oPH6zO0j bGlnbjogbGVmdDsg gtBdfUeuSNdsCHrvB163 IHRvcDsnPkJpcnRoIERh sXP3RZ94LJ70rVJxc7G0 uYY2B7QiEPUnngoy cwphrRC3JRVpCEMykS58 An5fbKijCi0qOMZzOXJ8 HHBuwZUqX6NzcD8eSgYb SRKoPIMbR6IrrOOh IRzmX814LCjtTlY2XCIm agRaL8ScUGAbzXmrNlA3 m8Z8Im0FA4I7NL17UJ37 hTYne5E8tBA5F3Yk JAQiospsalkmnWI6YPSt CLShdR96Hf7mvDfhOg2y TMHeNXN5NKBwvKBqS9Up aB4oDvFjCZOeBHNu Z7NqxIXwAGnmJ775YPrl ChP8HBRosmHtS9HrIDGr dKdeGqC4n0E0Nm6GQHj2 DL08YO96lTMfr6G5 xMA2N0MaVQNiqnykvjuu oRF7TVHnPENxlL74Fh3m eUeePz7lLPWfHZX0CVTa dIFdJ3DgiM7qNkHd DPFoZVApI6NqqESmJXvd K016IUjaPtV5MNArvmHo F2ZlWHJugClaPnB7t0R7 Qm1AHXAlBG43CZW8 zVV6AN08TZ10U2LpHwfa dGFibGU+PHRhYmxlIHdp ZHRoPScxMDAlJyBzdHls ZM1eFi9fDZKyEJVs kApqwYHuQxSir8dmAXLl FBysPX3uuGahB5WukEU4 JNPoh5i7Bv78V88jB3Bt dXA+VIGrlMY0mAW4 zP4wPoIbZyA4PYaqZ539 ZuHreADrWmdex0zyj9rq tCh1HxM3GGJgpqZuqUbq MVT1h8ZaUe02Y47k IHdpZHRoPSIxNSUiIHZh rZkrgo6ycC9fYu0+PGNv uJB5xKE6vS5pGmXgHiZ6 VBelK630LbMaiVSg Xjedm7hpa7odeDg4IeWz WIObpqQaaRnhOSH6o3Ye Xy92F5BgeXakg9LnDxp6 rb50fQOsy6E7qMF6 O9KlOIFlrerdtIJiwCxq ZE0jFRNechvqSHTxcE5r ZUCpM1n5BxBoApA9USnk M2FyhbU7IXFqbNRk GHroAGJ0A26ye4Y5CVJz ILWuLFD8iCW4gY3vdBcw bjogbGVmdDsgdmVydGlj OPvkHBntI600YGRv fFlmRQCbtY5nZEQvqCMz zYstCO0fMYBxvltlKofX QkVSTElORywgTEFXUkVO V6NyTQzuoIL+PHRk KBL3gMciAQttIFZpqO5m EWJwG0o3KtIxIoS7GBsl A3AcITYfbzgyRe74pS7w QlTrUnY6GEnlC9Du qiR1ZGBrcMZdALyrNJW3 F57xz0N8PPVfJTFsMIU3 hIX9dG9prTdpjtphgREa dDsgdmVydGljYWwt GSaiN328SRKomHwjXiN2 GuQuKdV1KXz6Q6CiYga4 LQWtlOhbEZ4maWWpHQaa Rz7lzPwmrJheFR8c PSJwyhsmEELqiE6cVCAh eSQnbEtvKZ9uIMGrtnwn f591RiAyIGW6UPKrcEWu S7OprK1aEnJaTWRn VHPfP6IhjCFsBHwnH235 AQysMdT9YUSefyYfX6Uj ZTJwuCqgAlM1w9K7Ge15 MiBZZWFyczwvdGQ+ MNCjHID7pStkLIcbJPSu nT9dMZIaD4a9EqOpQcU7 VMaaT2HkLJRmoczjAp58 sR2fAiZhUdU9PLva I0VolxB2PGFqkWDzSGej CLE7C28cb5B9QTUkITNn AOV6oVW0sU4zbWiddpsy bGVmdDsgdmVydGlj DQtiQGzbN629CUVaqDdh Rs5HWWD0E0YoVcc4UFLo uThhRT8ilYAmMZfaSk4b zDdueZocYV3uVFFu zzmqXEYymM6pLBJkyYSo fGurJX2iWMXgotafn463 JpFsNTM5MOTmuMPoX8Sv hE4tShFrCZVdPQRg B1PojLHoYPsrE139FCkw QfS5OQVfdmWaK6WwQOSl uBrwQtZ9v7T1Ok2BCWdp dGQ+RN96ua03G6Dd UggkWvl5LVGtXEW1zRZ2 gP1cITMcYGeqn4G3kGK9 Z3NdvwGnhr9cc6tfKXJs IVkqA82bqLCzd0A4 VJEveOL5UNEooTwlDmPx fJ37Cmz+EMWcpEqfh4Or Xplyh1dzn7udoAb2GcLu JSIgdmFsaWduPSJ0 h7SwUo56C50eAUjoXCWy DLPsHOMxCKSunOveye1s uA0aYz1+JXCmxLG8kVI0 aX2dTwRwVnC5MLhg X626YjTgiSJaKzdgw0gp v9uusOu9BoMeJYXrczHn xOzaDGG6i6QiGi70C0Xh bPkyc9OvHrn8kb87 qNRqa2N8yDD3M7ZbCTJf zroozEAgzHbkRH3fKBTr zafhVLEwbY7dJCBrM7w2 GgGtNoU5URhoU2Ht ppC3IKNhcTNhCJWwhGZV zM2iwgfvz6rvfezfKlUb WVKtGVc0ZLu6UWNpbYci QsCwYME9RtV5WGS8 lBYjsQ3bsCplthtvuO4o Oyc+VCi7m0lqqAUcNK3y cZD4TK73XJ77gXIza8D7 mXA5L8BrPWHqfewl xymooCX3HFFpZOVohI82 Yg0jmRfvVc5iTKFwJUL6 DAZwnYIoF4XupB2qUdUo FMBgMUWbI4TkjFXj WXpaH787ZKwjKeA5ZANg xyYqF0GzQZNqbHrwCsI6 s0Z0Dc8MDQ41CH37UH91 sPPul6Q2gHE7C2Ax VRNswghxmxescDH7IRIn EBVgeD69Kg4fzWlwQj2u ATAxETA1TIIawYArT4Yo jR3fMzQcEEVeOOLl E1IzmNMkKIdsL066ICmx OpL0WHJfwsHfE5TbFNXo wCayOnR9d5N2Ex4JYz82 XZ13WO05sTYjl5X4 pNQ7X5UhWFFwaiqidvow mOX7EWWrWFIpgC10Fq1i lApwPe9qFDRxQHB7SOVo nLXeL9DvfV8qGcRz KWNzYOGlM3WwcLOyWBwe O878SEsrNcQ5QDZudoMs C3AjCCGpoBoqFpJ9g0S8 Eh8HQTqkjcd3F4Jf PjwvdHI+CQ54SAXoUI88 nGPhxGFvr6esoEm5CbKo TENvDYA7sMoqGFaqj1Wy LWTyW35fsSPwg8Z9 [facility] (more content not included)... [facility] C Urineon 09-03-2021 C Urine <10,000 cfu/ml [facility] Comment on above: Performed By: #### 6 [id number] ####[facility] (DEFAULT)[address] [place] [address] 93171 Progress Note - Nurseon 08-14 Progress Note - Nurse PAT chart for 09-17-2021 surgery reviewed per anesthesiologistDr Mccauley- no additional orders received. [Electronically Signed on: 09/02/2021 13:45 EDT] Rita Molina RN [Verified on: 09/02/2021 13:45 EDT] Rita Molina RN [facility] Provider Orderson 09-02-2021 Provider Orders [id number] #[id number] [facility] .Auto Diff 1on 09-01-2021 Auto [place] % 9 % Normal 02-24 [facility] Comment on above: Performed By: #### 1 [id number], [id number], [id number] ####[facility] (DEFAULT)[address] [place] [address] 49561 Baso Abs# 0.0 x10 Normal 0.0-0.2 [facility] Comment on above: Performed By: #### 1 [id number], [id number], [id number] ####[facility] (DEFAULT)[address] [place] [address] 10283 Basophils/100 WBC (Bld) 0.6 % Normal 0.2-2.0 [facility] Comment on above: Performed By: #### 1 [id number], [id number], [id number] ####[facility] (DEFAULT)[address] [place] [address] 24078 Eos Abs# 0.0 x10 Normal 0.0-0.4 [facility] Comment on above: Performed By: #### 1 [id number], [id number], [id number] ####[facility] (DEFAULT)[address] [place] [address] Eosinophils/100 WBC (Bld) 0.7 % Low 0.9-4.0 [facility] Comment on above: Performed By: #### 1 [id number], [id number], [id number] ####[facility] (DEFAULT)[address] [place] [address] Lymph Abs# 2.2 x10 Normal 1.3-2.9 [facility] Comment on above: Performed By: #### 1 [id number], [id number], [id number] ####[facility] (DEFAULT)[address] [place] [address] Lymphocytes/100 WBC (Bld) 31 % Normal 14-48 [facility] Comment on above: Performed By: #### 1 [id number], [id number], [id number] ####[facility] (DEFAULT)[address] [place] [address] De Baca Abs# 0.7 x10 Normal 0.0-0.8 [facility] Comment on above: Performed By: #### 1 [id number], [id number], [id number] ####[facility] (DEFAULT)[address] [place] [address] Neut Abs# 4.1 x10 Normal 1.5-9.2 [facility] Comment on above: Performed By: #### 1 [id number], [id number], [id number] ####[facility] (DEFAULT)[address] [place] [address] Neutrophils/100 WBC (Bld) 58 % Normal 44-88 [facility] Comment on above: Performed By: #### 1 [id number], [id number], [id number] ####[facility] (DEFAULT)[address] [place] [address] BMP Standardon 09-01-2021 eGFR Non AA >60 Invalid Interpretation Code [facility] Comment on above: Performed By: #### 1 [id number], [id number], [id number] ####[facility] (DEFAULT)[address] [place] [address] 89739 eGFR AA >60 Invalid Interpretation Code [facility] Comment on above: Result Comment: [employer]er korina Kidney disease could be indicated at eGFRs of less than 60 ml/min/1.73m2. Kidney Failure is indicated at less than 15 ml/min/1.73m2 Performed By: #### 1 [id number], [id number], [id number] ####[facility] (DEFAULT)[address] [place] [address] 98295 Anion gap [Moles/Vol] 12.0 mmol/L Normal 5.0-19.0 [facility] Comment on above: Performed By: #### 1 [id number], [id number], [id number] ####[facility] (DEFAULT)[address] [place] [address] 10406 Calcium [Mass/Vol] 9.7 mg/dL Normal 8.9-10.3 [facility] Comment on above: Performed By: #### 1 [id number], [id number], [id number] ####[facility] (DEFAULT)[address] [place] [address] 90986 Chloride [Moles/Vol] 102 mmol/L Normal 101-111 [facility] Comment on above: Performed By: #### 1 [id number], [id number], 8083591 ####[facility] (DEFAULT)[address] [place] [address] 95045 CO2 [Moles/Vol] 29 mmol/L Normal 21-32 [facility] Comment on above: Performed By: #### 1 [id number], [id number], 4978931 ####[facility] (DEFAULT)[address] [place] [address] 80811 Creatinine [Mass/Vol] 0.94 mg/dL Normal 0.90-1.30 [facility] Comment on above: Performed By: #### 1 [id number], [id number], [id number] ####[facility] (DEFAULT)[address] [place] [address] 43363 Glucose [Mass/Vol] 109.0 mg/dL Normal 74.0-118.0 [facility] Comment on above: Performed By: #### 1 [id number], [id number], [id number] ####[facility] (DEFAULT)[address] [place] [address] 69278 Osmolality 281 mOsm/L Invalid Interpretation Code [facility] Comment on above: Performed By: #### 1 [id number], [id number], [id number] ####[facility] (DEFAULT)[address] [place] [address] 93928 Potassium [Moles/Vol] 4.1 mmol/L Normal 3.6-5.1 [facility] Comment on above: Performed By: #### 1 [id number], 84779172, [id number] ####[facility] (DEFAULT)[address] [place] [address] 42525 Sodium [Moles/Vol] 139.0 mmol/L Normal 136.0-144.0 [facility] Comment on above: Performed By: #### 1 [id number], [id number], 8110778 ####[facility] (DEFAULT)[address] [place] [address] 64656 Urea nitrogen [Mass/Vol] 21 mg/dL Normal 8-26 [facility] Comment on above: Performed By: #### 1 [id number], 94512159, 2004745 ####[facility] (DEFAULT)[address] [place] [address] 60075 Urea nitrogen/Creatinine [Mass ratio] 22.0 mg/mg High 4.6-16.2 [facility] Comment on above: Performed By: #### 1 [id number], [id number], 2303001 ####[facility] (DEFAULT)[address] [place] [address] 31847 CBC w/ Auto Diffon 2 Erythrocyte distribution width (RBC) [Ratio] 14.0 % Normal 11.5-15.0 [facility] Comment on above: Performed By: #### 1 [id number], 97006098, 0906361 #### [facility] (DEFAULT) [address] [place] [address] 68295 Hematocrit (Bld) [Volume fraction] 45.0 % Normal 34.8-51.9 [facility] Comment on above: Performed By: #### 1 [id number], 12041305, 3850645 #### [facility] (DEFAULT) [address] [place] [address] 40492 Hemoglobin (Bld) [Mass/Vol] 14.5 g/dL Normal 11.8-17.7 [facility] Comment on above: Performed By: #### 1 [id number], [id number], [id number] #### [facility] (DEFAULT) [address] [place] [address] Instr WBC 7.0 x10 Invalid Interpretation Code [facility] Comment on above: Performed By: #### 1 [id number], [id number], [id number] #### [facility] (DEFAULT) [address] [place] [address] 80105 Man Diff? Auto Normal [facility] Comment on above: Performed By: #### 1 [id number], [id number], 0042903 #### [facility] (DEFAULT) [address] [place] [address] 22447 MCH (RBC) [Entitic mass] 30 pg Normal 24-34 [facility] Comment on above: Performed By: #### 1 [id number], 95688160, 6412496 #### [facility] (DEFAULT) [address] [place] [address] 40008 MCHC (RBC) [Mass/Vol] 32 g/dL Normal 26-37 [facility] Comment on above: Performed By: #### 1 [id number], 79693024, 9077111 #### [facility] (DEFAULT) [address] [place] [address] 07033 MCV (RBC) [Entitic vol] 93 fL Normal 81-100 [facility] Comment on above: Performed By: #### 1 [id number], [id number], [id number] #### [facility] (DEFAULT) [address] [place] [address] 11967 Platelet 216 x10 Normal 138-427 [facility] Comment on above: Performed By: #### 1 [id number], 71308306, 2797271 #### [facility] (DEFAULT) [address] [place] [address] 58090 Platelet mean volume (Bld) [Entitic vol] 10.2 fL Normal 6.3-10.2 [facility] Comment on above: Performed By: #### 1 [id number], 52277758, 8631733 #### [facility] (DEFAULT) [address] [place] [address] 68039 RBC 4.86 x10 Normal 3.70-5.30 [facility] Comment on above: Performed By: #### 1 [id number], 67277255, 0077399 #### [facility] (DEFAULT) [address] [place] [address] 06014 WBC 7.0 x10 Normal 3.5-10.5 [facility] Comment on above: Performed By: #### 1 [id number], 48330503, 9063085 #### [facility] (DEFAULT) [address] [place] [address] 80316 XR Bone Length Studies [facility] 09-01-2021 XR Bone Length Studies Scanograms [...] noted. Follow-up as needed. Final Dictated by: Bala SANTAMARIA, John S Dictated DT/TM: 09/04/21 3:29 Signed (Electronic Signature): John Mckenna MD 09/04/21 4:45 pm Technologist: Elysia SIMONS [facility] Complete Blood Count with Au to Diffon 06-09-2021 Basophils (Bld) [#/Vol] 0.04 10*3/uL Normal 0.00-0.20 [facility] [employer] [facility] Comment on above: Performed By: #### C MP, CBCAD #### [facility] [address] [place], [place] [id number] Basophils/100 WBC (Bld) 0.6 % Normal [facility] Specialist Comment on above: Performed By: #### C MP, CBCAD #### [facility] [address] [place], [place] [id number] Eosinophils (Bld) [#/Vol] 0.11 10*3/uL Normal 0.02-0.50 [facility] Comment on above: Performed By: #### C MP, CBCAD #### [facility] [address] [place], [place] [id number] Eosinophils/100 WBC (Bld) 1.7 % Normal [facility] [employer] [facility] Comment on above: Performed By: #### C MP, CBCAD #### [facility] [address] [place], [place] [id number] Erythrocyte distribution width (RBC) [Ratio] 13.7 % Normal 11.0-15.0 [facility] [facility] Comment on above: Performed By: #### C MP, CBCAD #### [facility] [address] [place], [place] [id number] Hematocrit (Bld) [Volume fraction] 43.3 % Normal 38.5-50.0 [facility] [employer] [facility] Comment on above: Performed By: #### C MP, CBCAD #### [facility] [address], [place] [id number] Hemoglobin (Bld) [Mass/Vol] 14.1 g/dL Normal 13.0-17.1 [facility] [employer] Comment on above: Performed By: #### C MP, CBCAD #### [facility] [address] [place], [place] [id number] Lymphocytes (Bld) [#/Vol] 1.7 10*3/uL Normal 0.9-3.9 [facility] Specialist Comment on above: Performed By: #### C MP, CBCAD #### [facility] [address] [place], [place] [id number] Lymphocytes/100 WBC (Bld) 26.3 % Normal [facility] Specialist Comment on above: Performed By: #### C MP, CBCAD #### [facility] [address], [place] [id number] MCH (RBC) [Entitic mass] 29.1 pg Normal 27.0-33.0 [facility] Specialist Comment on above: Performed By: #### C MP, CBCAD #### [facility] [address], [place] [id number] MCHC (RBC) [Mass/Vol] 32.6 g/dL Normal 32.0-36.0 [facility] Specialist Comment on above: Performed By: #### C MP, CBCAD #### [facility] [address] [place], [place] [id number] MCV (RBC) [Entitic vol] 90 fL Normal 80-100 [facility] Specialist Comment on above: Performed By: #### C MP, CBCAD #### [facility] [address] [place], [place] [id number] Monocytes (Bld) [#/Vol] 0.6 10*3/uL Normal 0.2-0.9 [facility] Specialist Comment on above: Performed By: #### C MP, CBCAD #### [facility] [address] [place], [place] [id number] Monocytes/100 WBC (Bld) 9.6 % Normal [facility] Specialist Comment on above: Performed By: #### C MP, CBCAD #### [facility] [address] [place], [place] [id number] Neutrophils (Bld) [#/Vol] 3.9 10*3/uL Normal 1.5-7.8 [facility] Specialist Comment on above: Performed By: #### C MP, CBCAD #### [facility] [address] [place], [place] [id number] Neutrophils/100 WBC (Bld) 61.5 % Normal [facility] Specialist Comment on above: Performed By: #### C MP, CBCAD #### [facility] [address] [place], [place] [id number] Platelet mean volume (Bld) [Entitic vol] 11.30 fL Normal 7.50-12.50 [facility] Comment on above: Performed By: #### C MP, CBCAD #### [facility] [address] [place], [place] [id number] Platelets (Bld) [#/Vol] 222 10*3/uL Normal 140-400 [facility] Specialist Comment on above: Performed By: #### C MP, CBCAD #### [facility] [address] [place], [place] [id number] RBC (Bld) [#/Vol] 4.84 10*6/uL Normal 4.20-5.80 [facility] Specialist Comment on above: Performed By: #### C MP, CBCAD #### [facility] [address], [place] [id number] RDW-SD 44.9 fL Normal 37.0-50.0 [facility] Specialist Comment on above: Performed By: #### C MP, CBCAD #### [facility] [address], [place] [id number] WBC (Bld) [#/Vol] 6.4 10*3/uL Normal 3.8-11.0 [facility] [employer] [facility] Comment on above: Performed By: #### C MP, CBCAD #### [facility] [address], [place] [id number] Comprehensive Metabolic Pane chikis 06-09-2021 Albumin [Mass/Vol] 4.6 g/dL Normal 3.6-5.1 [facility] [employer] [facility] Comment on above: Performed By: #### C MP, CBCAD #### [facility] [address] [place], [place] [id number] Albumin/Globulin [Mass ratio] 2.2 {ratio} Normal 1.0-2.5 [facility] [employer] [facility] Comment on above: Performed By: #### C MP, CBCAD #### [facility] [address] [place], [place] [id number] ALP [Catalytic activity/Vol] 80 U/L Normal 40-129 [facility] Comment on above: Performed By: #### C MP, CBCAD #### [facility] [address] [place], [place] [id number] ALT [Catalytic activity/Vol] 16 U/L Normal 9-46 [facility] Specialist Comment on above: Result Comment: 01/13 Female reference range changed. Performed By: #### C MP, CBCAD #### [facility] [address] [place], [place] [id number] Anion gap [Moles/Vol] 17 mmol/L Normal 12-20 [facility] Comment on above: Result Comment: Effe ctive 02/18/2019 reference range changed. Performed By: #### C MP, CBCAD #### [facility] [address] [place], [place] [id number] AST [Catalytic activity/Vol] 22 U/L Normal 10-40 [facility] Comment on above: Performed By: #### C MP, CBCAD #### [facility] [address] [place], [place] [id number] Bilirubin [Mass/Vol] 0.40 mg/dL Normal 0.30-1.20 [facility] Comment on above: Performed By: #### C MP, CBCAD #### [facility] [address] [place], [place] [id number] BUN/CREA 20 Ratio Normal 6-22 [facility] Comment on above: Performed By: #### C MP, CBCAD #### [facility] [address] [place], [place] [id number] Calcium [Mass/Vol] 9.4 mg/dL Normal 8.6-10.2 [facility] Comment on above: Performed By: #### C MP, CBCAD #### [facility] [address] [place], [place] [id number] Chloride [Moles/Vol] 101 mmol/L Normal 98-107 [facility] Comment on above: Performed By: #### C MP, CBCAD #### [facility] [address] [place], [place] [id number] CO2 [Moles/Vol] 26 mmol/L Normal 20-31 [facility] [employer] [facility] Comment on above: Performed By: #### C MP, CBCAD #### [facility] [address] [place], [place] [id number] Creatinine [Mass/Vol] 0.7 mg/dL Normal 0.7-1.4 [facility] Specialist Comment on above: Performed By: #### C MP, CBCAD #### [facility] [address], [place] [id number] eGFRAA 132 mL/min/1.73m2 Normal >60 [facility] Comment on above: Performed By: #### C MP, CBCAD #### [facility] [address], [place] [id number] eGFRNAA 109 mL/min/1.73m2 Normal >60 [facility] Comment on above: Performed By: #### C MP, CBCAD #### [facility] [address] [place], [place] [id number] Globulin (S) [Mass/Vol] 2.1 g/dL Normal 1.9-3.7 [facility] Specialist Comment on above: Performed By: #### C MP, CBCAD #### [facility] [address] [place], [place] [id number] Glucose [Mass/Vol] 98 mg/dL Normal 65-99 [facility] Specialist Comment on above: Result Comment: For FASTING Glucose --- ADA reference ranges: Normal 65-99 mg/dl Prediabetes 100-125 Diabetes >/= 126 Performed By: #### C MP, CBCAD #### [facility] [address] [place], [place] [id number] Potassium [Moles/Vol] 3.9 mmol/L Normal 3.5-5.5 [facility] Specialist Comment on above: Performed By: #### C MP, CBCAD #### [facility] [address] [place], [place] [id number] Protein [Mass/Vol] 6.7 g/dL Normal 6.1-8.1 [facility] Specialist Comment on above: Performed By: #### C MP, CBCAD #### [facility] [address] [place], [place] [id number] Sodium [Moles/Vol] 139 mmol/L Normal 135-146 [facility] Comment on above: Performed By: #### C MP, CBCAD #### [facility] [address] [place], [place] [id number] Urea nitrogen [Mass/Vol] 14 mg/dL Normal 7-25 [facility] Specialist Comment on above: Performed By: #### C MP, CBCAD #### [facility] [address] [place], [place] [id number] Hemoglobin A1Con 06-09-2021 EAG 136.98 Normal [facility] Comment on above: Performed By: #### A 1C #### [facility] [address], [place] [id number] HbA1c (Bld) [Mass fraction] 6.4 % High 4.0-6.0 [facility] Specialist Comment on above: Performed By: #### A 1C #### [facility] [address] [place], [place] [id number] Q - B-TYPE NATRIURETIC (BNP) on 06-09-2021 Natriuretic peptide B (Bld) [Mass/Vol] 33 pg/mL Normal <100 [facility] Specialist Comment on above: Order Comment: [facility] performed at: [facility], [address] [place] [address], [address] [place] [address], [id number], Scrub Tech: Curtis Lyons MD [facility] Collection Date/Time: [id number] [facility] Results Received Date/Time: [facility] Reported Date/Time: FASTING: NO Result Comment: BNP levels increase with age in the general population with the highest values seen in individuals greater than 75 years of age. Reference: J. Am. Cheryl. Cardiol. 2002; 40:976-982. Performed By: #### 3 [id number] #### [facility] [address] [place] [address] Coding Summaryon 03-16-2021 Coding Summary HTMLBase 64 HcgneqxuEDu7sFh+PGhl YWQ+LC2ZBATkL15aeUYd fO4VY8oLIZ9OLDRHARLB BF6IIY2ywQG7ZKktI7Cl biAv MkdpsZZeAY39PYw8WEM9 xItcHIlcxH4mzCAaX4b0 RzAqVT32xT18LFucUBZb ByX5PnEvmybuqOUw Y6edAbBlwEPhJfi+PHRh YmxlIHdpZHRoPScxMDAl ZwWwbTibMD6rFo0iKWDb LWNvbGxhcHNlOiBj z5jsWBKxNEckIQ9wpOer Z6ZsuPM7ZXCkr5p5Tc23 dHI+TBFkVBX2iVkmISrs t448StKzx4zsQTQ3 jFFdNUxhQPO5M82rx9X7 HGCiAHJdDJQ1pTO2nP8g wDndqyyuM0RdeSPbRhO7 KIY8lFVklY3fsArf vlolqU6mIog+N36KZM9B XHUPIN3NOyr9C0OaNkgv dHI+ES00RZZsTM57uQRk uOZic6zzqMh4HsKe BUOcZYR7lJczJWtop8Ch KJNeX18kcGJxz2Y0XTZd lIuttBJtPkSmtWB1uJ7u LAtnbfpqm6ajgivs Tznff9wqtl92rJ71K80g MIafNWPsIMP2AQJaYPRd uYcdzz0czK3rJx8+IDxj a8sfj9yyoSe2EzPf HCGthnYfcVueMCP0i2Gw Yu57Z6BdqLsxf4MmBpc3 ig95oMDuj0C9yKS7UMzw SJFszE7aQYxtEfF3 PTNhApSnfN05xFEeNAfh Jq0usKyjuZvhSA5lVJJq afpbCKIbiB1zZEUhyHXh zJmjLB2vEMAoyovi y848AyZwPMS1ACTayKIe G0RmjU7wBaAgTIDsPFNt R1RdfWRxYJkkR326JFkv YrU5XVTsbaLvM3Rm VYQfdGjuKxQ8p9F9Hv6N t9MpaskhVKX3DYwwYYXa SuJlYkQvZmI4B5FhMbv3 ALLbkUbqQX1zB6Fl FEZkgxigxxhjwJQ6NVNu KOOnvE65gQXdNNrrNs1z n8B0a288ZTNfUXVdsF21 Sh0nfXgnYFCizBJY fO2thculi8nclnteMvHe TYZqLNz1DPy7VZYoiExx ZxXzRGQ0TuR6LZD7vUBb gG4wyQnzmwxblA3s Oyc+V28cmP5qNZQ7UMH8 aubnHHOwubXjBL79KH67 Q2KqNvorkDMehZF+PGRp udWvtJayFZ6jEwUi n3myu5KxMFokC7VuIRMh LIseYmf2TAJhDJY8nWY3 aH7hOKUlANdup5E1eQO4 K8KsmmZsxw4ol4jr MYIuTPkkQ11bxAVew6T2 AZAmnHY1ZKGbhBkyDsNc oI53Sxw+KRBqbOyfa1Yt Wsetk7hrs4ltzBh4 IjMwJSIgdmFsaWduPSJ0 q3UmSj78Q37tPIoeWCGg IWJbXMFeQSXjsMbcxr8w yT1lLg6+PGNvbCB3 wNC7aE1eLYObPaM3ROxx A190QrCifPBiBaxqq2eb y3vagFe2SwDxPQShkbVs gXxbRFD5u6DjNy24 M55eAKtvLDGsIBFgIIFg SUCyxKdwwo3kjM3eMx3+ IZ1mw9ezhz51tJ79bXS+ MEGiMGE8cVjzHYah EWVsvS9rHRxhAyC9BZIn PiQylN14cMJtHHusZs9y fNnlyEinFW3qUVYfgwrw c435EpFkj4bpJHYs tIRoKCikRRD0R45ku8Y3 XIFpCDXfGCP0nMS7cH2x bGlnbjogbGVmdDsgdmVy zWmmANmeASvbF498 IHRvcDsnPlBhdGllbnQg BuSbBCt5C0LpDgt7DLYn aIrpTC6lfXXiUEknIk5r dLhfzXaxXI5jZQZh stqtt000MoOpe0bjBJBy tMDxABcxGCA3Y12po1V7 CIZzEPMkLWZ3iHV9cX7p bGlnbjogbGVmdDsg tbRtyNewMDvpTJgeX009 IHRvcDsnPkJpcnRoIERh rAO8GQ32ZL58hIOex3C7 qTD2E3JcUEEnryoo elucoXF5YUGxYCVxoP63 Cb9tkYsxJx8mOZPiTKM3 NYFjaHVsJ5GdkH3fXaYn TGRqAJUeB0JkmOJw SFryY084HNcmOgD1QAUn hiYpE3ArEOImvVitQaU5 q2L5Hj3QP5N0RY57ZG71 nLSwc8Y6tJU3V8Gw QCUkdkksryyqxBB8XFDf NGLiqS97Ia5yfNknOj9m SSLdOPV4NWXsjNMxK5Eg zB2tLoVnOFLkBRXw I4ZzsDNxBJjsF946IRsl DdY2DQNzqbZzH1JxJTTf dOphDoR3r5A0Er6JRVa9 DF35VF90zUUef8N5 wVP4X0ThIRAobltiliml uAB5MGDeRAKljW33He7e qLfyIm2eWTAiYSF5XCXi qMGyG6EltF7qVzUc WTOyRXJzT8OkhLOwNCpe O283NYacJdV5RKXmvlXs V1DfSUZjfAqyBcW3o8X1 Wu5FBFPdXF43EXH7 oUW7QS40GM00C0WdHamb dGFibGU+PHRhYmxlIHdp ZHRoPScxMDAlJyBzdHls YN3vIn6fJFBxZDVu iYvnpAOqLoVhm3axRPYc UWnnFU0oiToeY1XeoDK7 CUQpm9c0Gp20N94pV8Hf dXA+PPXzgYF2jPL8 jS7gIwPyJjK5LJusC767 ImOjlPSmDhabb0wwh1ua yVg1LoQ9EDLgaxAmnNnm KBC9w4WyFw30Q43l IHdpZHRoPSIxNSUiIHZh ePywav9lcI9qQe9+PGNv yWT7eDM4zM8bOtNgYzF3 MFkwQ799SgRbhZLr Kwwlb9vyg6hfyZt5GxRb SHByjgZwnHjtZWR0y9Iw Ta42F4UlyBrng6HqFqj9 nq52jXYyv0H0jTU9 C7TvCABazhokyHWmuUpu MU5rNCKgmfeoEOZbcW1k JPUgB9b6VwYfDeS3YOre I9CdziH9GDBryKIg JJeuRGF9S89wt3W7SMNt WCHwEDO0wAG7rU9lwUxw bjogbGVmdDsgdmVydGlj FCmlIHwbG105NDRn uZamPXPsrE7mHARdcQYq vTupRS8tBMQdjlsyAxsX QkVSTElORywgTEFXUkVO F9EuBTifaNW+PHRk SQI3aVnnVAfjCNAdjW3m RASaB5r3DcMzDgM7RHsd B8LrSCHnbgpaMk86wN5t BeJgTcT3LXppM4Bq wzF4BWBgiDXaOZqjZNH2 G36tn7F7DTYwUJRqWDP1 qAB0qB3oqZdnqltxaTXa dDsgdmVydGljYWwt NAabT869GAAhxQjnGhI9 QbZnAwA5ICe2H3GmAry8 DEYuwAyeMZ9jjHHaZGsi Jo3pfEuyhYviKX1g LCLempoyHONjrR2sKDVj bDIzfJwbIA6iUEAoqhhr a851EwKiJHW1OYIekRWe X6EmxJ6mJbGcKVTq RCOeR9BbuZGnDTtjT737 LXrzHtH7FSTsvuOfN0Xw NALmeDosWqQ7i8X3Wk58 MiBZZWFyczwvdGQ+ HPTpUBG6uOnrEBufOBKy uN0hSOHgN9c9MgJjYbW2 JIhuC7FwCGUyfqowOy68 sW1eAyDaWxG8RKgi O6HhevM7CYZeoVZuZHcv BSK2P93fa7L4TKIcXXQg IIM7nPD7mU9alEqacztu bGVmdDsgdmVydGlj ZIziYQkiL640QRDoiApj Ov3FFYJ1T5QtJtv9NSUs aJidQA4kcOMfZIseGj4g hKqvmFegWB6eOSPc bjlyXIRzbL3nTRLuqHSb fFqbTG8tWNAbypkvj197 OzZvJSB5LGWztDVgL3Hi jI7jBxObHTVrINWd H7FhqWMnXVezA345ZIlp HcQ6ACPcxaYlA4JnTOFw nCagKeQ1o3X4Ln7JAWno dGQ+EW67fx83R8Aj StgnBiw9XOSiBZU6xMV5 bY0bHGCwIFpdw5F5uHG4 A8OennXeaf4fd2oqYNUy HJefM34bqCYhn5H7 QIOjnUK9AKWevBazAlJj tT20Dyu+IKJvjRewp5Ye Iuklt9atp9aplUr3QbDm JSIgdmFsaWduPSJ0 y6AzQq55G45kCHtsVQOw KTXmPEKlUEBczXqxnr0m wB5zAo6+XLAziJB1fCX3 lU9gKxCiZgB5WHhq I614UoCqtKInYzmuw7bf v7khgTl4YzRrMHMqtsKn yZnzVBI8c5LbEw27J9Xt eAxfn3MjGnn1yp29 dERfg4N8rFL5A1GzOYDw omibdRDmiMbvYU3nEWUb tjixARZfaK8bPLCrR5l2 FcXsDtN0AOrdS3Uy uvO1WYJnnYVeJICyqVDI oD3mboult1hkkcmoYdHj CHFyRXi8EDd7FQDapQvd QiLrRSC0OcF3NDN3 eYLgmB4zjHixneflmB4m Oyc+AVy6a9qzdGYbLM5t hLS2WQ90MM04aVMhl5P1 yMC6C3TbEUWpommw yummaIP8AYTeBIVuuF76 Az8nsGodBc4cFXVaTJM0 OPZfyKNbJ9MziD9kTyHa GCCqHRSyP2FapJMp VYrgS466YRtzByE2RJVa yoAuB8SqTYOmiUdzLjQ0 o4H0Tp0XAG25EZ07FM88 gICaf7H7hSE6T6Dz PYPjgkbqxmpwjIR2KXGg FUSznP53Mv2fmCacYw3j TEMvWWO3LUWuxREmP5Qh oT7lTfMsXIFpWNYf M9FxbZYaNGaiS883YQfp TmH8AMFoekCaO3OnDOVi oRlfZoK0o5D1Pe2RSh73 NA84HC55fDNqk8Q8 iGV7X9LuGIVuxgitkyzu sTK3GOXzQUZocZ76Sr0a mTiuWn6sUCQbHTX9ADGn vNAvS3OtkZ3cTdTk HRTvLVEaG6NdbCZrDKjz M516GSwnTxG6COOcpnHc W4PyYELlqWqtToS8l4S7 Vq7LWMopohx6T1Qp PjwvdHI+WJ44QZUgCP34 wBJybDFxk2edvSf7NhNi PLKlPRI2fLndQZkkq8Eo YRJmE89xhYEtu5L4 IGN (more content not included)... [facility] Consent Formson 03-12-2021 Consent Forms [id number] [id number] [facility] Coding Summaryon 03-09-2021 Coding Summary HTMLBase 64 AeokshteWGl7mFw+PGhl YWQ+RB2MWFXfX68gqIGc hY3WC4oURF0JKOTGMTYO DQ7YTX4sbRF8RXrmY0Wd biAv RtelkJGvTP42BRg9UDE0 pJgsJVihsT3oqAItT9d7 HdPcXZ05cR82MDhjDQGc AhZ8YbQuzpzlnOOy Y8eyYkZkaMKbRif+PHRh YmxlIHdpZHRoPScxMDAl RyHmdRfwQT3jSh9pZKLb LWNvbGxhcHNlOiBj c7xoCXZuYKyuLZ9leEem Y6OlyQT4MYBrj2y8Gf36 dHI+FRCeOXI8iZsfMQkl s388LeRdq3gtQOP5 gEYpQEbpKGM8Q21zy9D2 DDLgCKOgXUD7zYH2kU4u nRvllopkG4JijDKsRcO7 RIM7kVQmqA0giLfp jydywE2nMdd+D95SFP9V SIYVAU8DOjf2F7HcCdtw dHI+YJ30TAVrOL86pWNc dIQlp0jshFr2TfUj YYLrEHZ6xSgdGTtxg4Ql AZUwY37wvGJlb5J1QROa cRdwxJXcFsVkxMF2rT6b LRrxykvrl7mzaktm Nlowc6gdjg91qF05L52l MXfsWIKdFCQ3AMNpSVGh vKuysm4hfL8yDz8+IDxj v5oyh1yagOz3QjOb ACBprgPvsLniXFA4q1Tb Nc51Y0YnrYqeh1OhQrv0 as86nZIji7O4nCL4NHrf SQEclG5mKVmgYqM5 FVCsGgAnqV50pZMeGPhu Ui0ziZnoiTvvUM4oDNAs gmkcCRJtiF7cPWIoxBVg bZhcPM0dPGNwlwwp c292AkChMGB1OJZghUPs Q6OnbP1hHdRnVDUrXMRf Z1DzpJYnLPymA399LCsz YvQ2LEBiehSzG5Ki GXUnmWfrKrH2p3R0Fi8J m5OqoospCXW0AYpaUEWk ZuH1KnRgJwI4G1TdGay1 URAiiVssIA1gC4Dh ACWsmavnjlupeUI2YTSm OUXwtO61vUOuBWypJq5b u2C4g710IBMhEPMuoY12 Sh0frZxsGAFyrBTU hN9ncledh3dbgiwfXqWo WDOvTQx9AGs4HWAqtOom QvXzOSJ4GrL6ODW4yKJo oT4ykQmrrsaqbJ7l Oyc+E46ycB6sPWL9AEO5 qdhaNJPelcMpWU85WM15 S7AcBsoivJDcpTG+PGRp xaIoeZlcLA9uOtAk a7ing4VnNYvkI3LvAGNy GRdoXjc6HXVyUZG5hEJ1 wF9fOQKcIKqwy7W4fLD2 O4ErgzEgrg8gh3lt QVVwJMtpF40oiMXlr4B1 CQCruQG6WRKrmBazEnKj iK44Miw+WLBdcTaus5Le Gnkih2shf3nzfSn1 IjMwJSIgdmFsaWduPSJ0 n7JiMp04Y39kQKnsTWNi OZKoBOZaJWFurHxvpi4l gY4aJp4+PGNvbCB3 lRB8aP4qRIUoEgT2SRia I030UxSfjRDfUrshh6xv a5ombFo6VvHkBJGsfzLn jKejEGM6n1PfMp28 F63gCUvlYUMaYREgUXIi NEAhwPcsvo4roX1iEe8+ JA5uz7mkhq57vY46uDR+ YHKpZLR7zCdlLUle LQCzbU5xRTakEcY9ZWYd BvFjmI62lGVuCIkhYi0a zQajiUpvTA1lOYNvjzap n133FcPsr0vnXLOw aDPpIWxjZBK2O51sl5H7 PZBaUQNqHYY2kLN8dB5v bGlnbjogbGVmdDsgdmVy cBdcZRnjTFpcP362 IHRvcDsnPlBhdGllbnQg CdLfQHl5R5BmKjh6PBNm rYryBY1nqMKqTSjlDk7j uVbedBapBL8oFYFr zrkxi648IwGvp5diKDTs vULmUFshHDD7H86bx2U4 WTIaMBVzBGO3aIF9bK9x bGlnbjogbGVmdDsg rhMhhGamPJtvVYwwR369 IHRvcDsnPkJpcnRoIERh kFP4YJ22AL40iEVri2R7 xBL0A1RyQBGonwtu ediwcOF8OQRtNPXlmI40 Rh9fvLwqJz1oDWAhIAB9 MOEbvKQyE4YwaI1gUzAd DNObROMeK9WcqFKx VExoJ747ZEppYsY8BKUh inYaL5LwTCTytYulAxG6 o2W4Mz6QO3X0NB32JU17 uOIno2T3wWP0F9Tl MGHyesaaurbnjFR9PKGb OMYzfT58Xq3zvUnbNi4z RWZhCEQ3JVJnmSKjH2Da bI8fBuFzRZTfHLQs N1JkwLUtFWtiB660GOyn PxH3VGQzeoQzQ0ZhKHIc wIjhDqS4f2J8Kf5QQRl2 JG02UQ61eFCiq3D6 rYT4V8DnDLCdcijsfzgq sJX6AGIgWBUqvZ31Mj4h mSiuBb5sYJKcYGG9VUSg aZEiB2RkqG8iIkWj BGAuXXKkX3DyjPHjUMur D853DMgaJoW5APAuofJv P7KqHNWqmDlcTcG5z7E0 Qi1IEZLePC43UOF1 hXX0YX41CI12G4ElIjxk dGFibGU+PHRhYmxlIHdp ZHRoPScxMDAlJyBzdHls MT1zKy8aKVReFEPd zDaofKOsIkYzv1bdRRMk NZkbHX7urKnaJ4GudTY4 DQIii8q2Ma96P80dC8Gj dXA+FXGetMO1nBF7 gH4sXfRsYfK6GGfoS661 QjQddUWnOwhla2zzg2wq eCb5ZcD7YMVimqYgyQqw DKA9c3NxWl81P70k IHdpZHRoPSIxNSUiIHZh fOvnfq6bhD6iVd9+PGNv hYZ7xYQ1xK1dYgSyUzU8 HLshV207UeOmpUAl Xzbfl2kiq4bzuGm6UtLa TPBxvwWqfVdyQKT8c4Us Vl36Q7FrsUdcd1LfFfn4 nf44sQWvt0L0bGN0 B2PsQHIodkhjbVAmkNiz VI7kGNRsfkajVSXihE1l HRPpH1a7YyBtAlZ4DFsy W3BrmzN3BSAbyHQq QGchNYY5P17oe2W9TUWr TVNfPXA6eRI4kV6scQea bjogbGVmdDsgdmVydGlj SGqgYIpcN172XUKn vBheEMCihU2pVLKnhYBu vAytIO9mQWUevwceAusP QkVSTElORywgTEFXUkVO F8FcBVfteFM+PHRk DNI6hYapCVhbYOWwgF2n OBInS2b1GqFlUqL5QMvz O5QxIZUwskanYr69iZ8q TlFaYtT1AWarS3Jy ewQ5GKLriZYpEOpvEXO2 L39kh3B3GJCvGCCuZLG9 gQC7lF6ogDdxqblviPRw dDsgdmVydGljYWwt SSlxD156AJGafLkwZuR7 HoKjSsM7PNn5M6OwRfy1 UHHejUqiDE0unYCbFDnp Vh3lmLmmiRmrVJ7h OTDncgpoURVmaX1kDGKi pYRghIraLM3gAIGyvdcb u494QwTzRUL6HCXkcPAd Y9WexM4mZkTbLMUj TGCmK7PbmXAvDXycD187 EHzzZlF1EQAmbaWrZ8Lw YVEfpGmuToA3p5X8Ff73 MiBZZWFyczwvdGQ+ UEIpKVU3hFwlPKwoYISh kH1iFZAiA7d8EgVnQhH8 FKgeS3FoOTWrndtoAe55 jM8zFbPpNlQ0GXpu F1RchhG3SSPkaFYkZPxz KSE1D99uc2Y1HCWlVJNm XGV3kKM7rN5huUtfwmtk bGVmdDsgdmVydGlj RPavVOysS504OBXctCaf Pe3PWSE4U9PzFnh1CWIp zLplWH0icIImXUhiJs2t iXqqhHqnNQ6lPZVo amznCCRnqL7gANNdzCZz fTumKY9xIUWodrfzy735 WwTmYQG9MELnjOZvP7Cz iV8qJxXvEIWvQNFf C4YixHRpAOmuK470ZLvw PtT3DYMlcpEpV0HuFJOe rJgkRaU7i1O1Gr8WBcDt cnZhdGlvbjwvdGQ+ VB60wk45F2ChLrcnSmu3 SHSpPIX3rYQ7uN8cGMHq AGmsa4J5tIS6A3SiexFm pb7wu0ksCUBeMNqz A96wqHTxv8K4ARFebDO0 MWIjeSayLcOhpS49Rrm+ KWPpgPfvv0WbDgvzq4kh n5ptjIy2IgAbXJZe fwPqfLylTVU9o1FuDy01 D60dRWouFDLgTSIdCHBo NYXojKqaco1inG8rCi6+ VNSpqDQ5bBG2jZ6c AiFxBsM2AEdqM749RpYh yLXtZgnxi3neq6rppDh9 IjIwJSIgdmFsaWduPSJ0 s1LaVd02K0MprRje o8PhFsc0on58vQHvm3W1 eSJ5M8JgRSDdlngibWIi cOqnSR2nFUSismrmSRBv fA9oSGLlZ8t3AjBi IiP1OLynG3OnabL5WANh hXImUBGwoAGStL9pxvoc x8plmrysNkRkARBxPVa1 TRp4QYEfqDymGaAq KCK1HaT6AJE8kEAbjA7w kLqtwjlrrJ2mKwj+UGh5 p3zhdKHiPZ2ytKN4MV00 UZ48tFSsx0R5dDN0 K6BvNGZrdljrywkqqRH0 VRJpIPZhtS54Du4xmGvo Ig2cRJBdCIT9NPGrmZRb R9IaiZ0bGxKuFHFs JHZxG4AvoDGdNUwcU837 TFgmKcY2QGKjcrGyX7Se FTMoiSczScX5j2O2Es5G LC32CP39FE16xYXf s6N8tLD0W8ByDCTiinie awfkdRL8SHMgYUBwiL53 Vm0knOdiDj5hZUPxAWT1 VKBgbEUzR8GaeF8j OmPtPHKsCQGdB0CbrUQm ZNguR955FSehKoK4VSGr neFbC3LdTVEguSitSkL9 k6B1Kz6AEy27YX40 IP66mRCtl1H8vGW1V4Yl MNCdbbqhnuyzjQR3LVDn ICYlnL13Av0suFziKy9u ZNOiFTQ5HHQroZDh K8SpxC3kKySaCIToGBLo M9WdbKQjNXhnX289XCko AqQ4ISQgrlDtE0ZiGKBw xOnlQuB1q6G4Wj5T YAlvtop4B8LnUmfugNF+ JI85GFGyAJ45tOLinFOg m2moyPx6WzHnUCHdDTR6 oByjTZzog2YnZJGc Y29 (more content not included)... [facility] Coding Summaryon 03-08-2021 Coding Summary HTMLBase 64 KzkvptejCSb2yAd+PGhl YWQ+HF3GRKDnO92dyKDa wI7WN5uPYK6JUJOBSVRA DP8GSB6lvJY2CVkeQ5Af biAv RopihTUoII26TLc6CHU9 gPhdUCgxeM2uaWLlQ2w0 LaHtFH25tQ52FKhgLYEp XoW0FoPkpnogwFQm D5wiZnIahWNiBkm+PHRh YmxlIHdpZHRoPScxMDAl FqGisKylHF2bDn9qGOEf LWNvbGxhcHNlOiBj l3kxNIJhQQxxUF1liXnt Z3DbgSI7YPCug3b4Bi96 dHI+GPLnYGX6yYbuLTez q207EeVcv1kuDHN1 qAPrMFmfGPS5B86gi0J8 DEHaIECmFBT2hCB0tL3b aPzgiqhjT7JhyZDcWqK3 WCG7hVLcvM9wfAkm fuuznI7kZew+T47XYJ0R LFNODC0TVzd9H5AaDjxj dHI+MB20RDPaHU53bMTe xFUnv0ppaIz6CiQw KGNiNYH5gLzcJHbho5Er BASmI23azJHst7R5CDRj sOoepFZeGhDudXE8wX5w RLtwdtybg7dgpijh Xpxix5jskt66jB86W16l HQegLFOdPYB1VZNhZZCb tVxoyz4koE9qTf8+IDxj c4zhh0gkxWu2SgMt JZRaubTtpDcxMYL4o7Xb Mp34V9RuhVugx1TaUqb8 ls48qWOyu1F5wIG6SMbn YJAicQ1pOPqtYdZ7 CIPfEbOqgK74rDTpAVuj Na5cwAnkiIcxEB7hCTKi ikuwCDShiW0pFISddOLa vEgtFC5qMKGjyubi c367FhBgPKT9KRIknWWp S7GclJ0vXvUrJYAwFSQf B1CjzIPhRDdqR797TQmh UsX4QRRkrpBjJ9If ZEDfqFcqCqJ4w1X3Yr9H r9IgtfdyFFJ8ZTduEGSe ErE7FcBbLxH9K7LqPcq4 PTHeuWfkUA5qC2Lq YOQaesupordjvUY1NKZh XJBrqA68hWJbVGkjZa9p e7G6e555IKRsVSFhaS78 Ij2zeXuuLCQucQGG vM0nffvck9vkycurExQw ZPRoXPq6RYb3HUNhjWqb OfArATY3AvS3RYB1iXGe bV6grHfhjjbppB4m Oyc+S95knR1eGHW0WPO5 kbqkEOGgdzHtPE52HB31 F5TfLppzyZAegIO+PGRp laFnxUfjLP5eXsSa z1jqd1AkURdzC6SsSGGy ETquBfk9FBUuVTJ0xNR4 tW6aZREySOxeo3V5oGC3 S2SiqzXyzb2dt4el JMHoYQqvY40kvIBav0S0 XTWssJA1AAOmnLjlAgDe rQ56Dbj+OJXwjFcnv8Oq Dktpg8yym3butRy7 IjMwJSIgdmFsaWduPSJ0 m8PqJu29G60dKPmlTWLy JEZpBGKmQWNzaTcuft3h bI1xZm0+PGNvbCB3 eKS9fP9pRMYoPhO2BFdh O177QlUxlEVyWisbw8ti p8uwiTq3TuEjRYAnnyXo eBjlHZY2d8AoZs24 Z79kSCtrYDLoXQQvSWFg EGZitIdfgv4tkG3rYl1+ PI2hs6hlow10zV88mWF+ AQWeIUQ0mVhiLOhr LTOgjS2zZAycSqT2OXBo RvPylE84nCSiMHwrKc2c zLbcxLmhSM8vGMHyucnm d990WtEgw8uwTAPn lJBdOClhDCL4H02iq8W6 OIDcMXTyMML0sSH5mO8g bGlnbjogbGVmdDsgdmVy wUsmCZzlWXbpS031 IHRvcDsnPlBhdGllbnQg EwHcGXp8T9OzRxy2JIEa nHivZE5feFMuJCcyRs2i nDlnqObbVU6qGRYe cjusx419VvAkv2phANTy sJMdMAahEDQ4C96zx5L3 BNJgTBHiWQJ3wMN9kX8e bGlnbjogbGVmdDsg zkMcbYiyBMuuYMeiW692 IHRvcDsnPkJpcnRoIERh bGM2TB02HI99eVVck5X5 gXJ7T8DkFVWnaqdb yzvvhCO0ARBoRDPjwW88 Lb1boHpfQu3cKLZjPXX5 SAXilFRrS4MrhH5aMkKy QDXkWUKtM0YucJFh NKywP127KZiaVrB0KSWf jkBpP7DcAEKeoNoiLcB4 g8B0Js6CE5J7BU53RP24 xNXxo8O4aNS5Y0Wu TUQlkokcwgftsMV5EWLg CZFkcE83Ac8idTicUn4t PDEpHDU4SPXwbWLyB4Oi tP7uIoMjIATyQGOq W7AxuMJgZEwqR741GRct IvY9QLTdzdWgS9DdTLSx fSofHrG6m9D7Bi1UEIj3 XO26QM72kBCmh5O3 gVY3Z8OdRLGeabzjkkiz sHB1DBXlMRLhyJ44Bk7o yKckVx9fOUIkUDE2ZLGr aGUeX2YruX1nFwAq HWTrIRTtD7OkiKWxIHwl O842KEjcYlO0ESHnqjVn K4KaQLAinAxaEgO4b5J8 Bk5FBHBuSG93PRQ9 bPB7ND45YR81I9IbFxyz dGFibGU+PHRhYmxlIHdp ZHRoPScxMDAlJyBzdHls ZG7vSk0sBQQcODGs gCfipFVsHtCez8svKZVp SRuhPQ8cdXjvJ3WhmDY5 LCCzd6o0Mc02C16qE0Ep dXA+LPXhfRL5uYX6 hQ9gQaXwCkY0VNpxF521 LnEfxQLiRrvwv5fip4dd dLl8FnX6UUXoyxQpkFos KCV7x2PoEn11K40i IHdpZHRoPSIxNSUiIHZh hYfipy0sxX1yCj2+PGNv vQJ4iXF2uY2pHyTlBbF9 ZDhyA557ZuPtqCFx Oiwtu1zvh4svmTl5SeHg HJCtlhRsdVsdUSD8r8Td En35X1YzoWjcd8CrBbs9 be49iTEwr3A1tMI6 Y7KiTGThqxrcvUIdgEhw EP4tCRRtehurFNBrfN2q SAOqG7k2KjOnVkC2DAwu A4WcuxE8VDGfwHVz XNwoFUY5Y44ko7X8OQYg PXHqQGX7vMI6qZ8oyRuo bjogbGVmdDsgdmVydGlj OLilNZyuO593PIBn cGpgGDUsqT7iVBOkdWEe rVpzJC8sJZGawkmaXduM QkVSTElORywgTEFXUkVO Z9KaTLenqPD+PHRk VXZ9gOjbVNtaBZBfeL1i JEHjJ3m3EiAlCgH4SHbu O1GtOSNkuuqcHl90rN4d MeNiEbT7PIozS3Pw ivY2DHKwxMIwETjoIMK0 D75ln6U8CLIuIRUmYAA3 eBT4rJ1cqHiokohikDMj dDsgdmVydGljYWwt AIjfK848GKVgmQvoUdO7 LeZpGlG6MYd9L1VyHms4 FDHdvBzlKF2doBKuHMqe Xz2slOircHpgYO1x VXVsykeiGJZblI7sRICx lGMizOagXS7dXUPsxpkw q647BzSzETP0FOPodJDz Z7LasO2nMoQeBZNz LJFqT3ImwRCxXPkaI327 XCzzDkN6MPWngfWcE3Du FRQbnMilSgZ7d1N4Qa69 MiBZZWFyczwvdGQ+ JKBjKVX7jSmdUBwxHBJf fU1rDMHoJ9o4XoZrEbX5 LCfzZ3DeRDEjyehiIl92 aP5sSkQxPdV7OGom C6TyxmF1QVTihYHxRDrk VDC5J53wb5W1KHKuVEQk ODM9cBW1eB1siHjqwyfj bGVmdDsgdmVydGlj TSxaBJcwJ375FBNsnKpg Yu0TFLL9U9EyJxh4CGGd yBfsZC5cvMEkNRszRr5v iNuftAigYF5oSTXq wvrfYGZevL6qEJWsfODg vFqsWQ9sRMEozzmnt055 TcPhUWD3NDKgoJVbT2Zp dS6lZyJoYJHtOWVj T8SqzCWyIKdjC920GHba PrN5ADJhlmZhR9MlDVHo kKhuYbZ3b9B3Ke0SYYpo dGQ+GL14sg67Y9Tr QdxbIuu9YQMuGYN5sJW7 aW2gXFLdGRtbb7O3tAR0 G4WqnrNsvn8ip0wmRHMt LJewA53oxCBkg1Q6 HMMwgYS3HOCumWjhCoSv sR33Dxq+NPLieBlsa4Zv Bqdga6xmd6pszZq9UaNn JSIgdmFsaWduPSJ0 c3IpRv16Z57bSOgxOENw RRUbOURmOSYbtQdrel1k pD3wIz6+CDFyaOF1bRT6 zM8xVoGfYkY9QMwq J557UgPlzUGoUwhst5ie l8todJn7SeYdSHWozdHt eUnbWHE0f8EsHz86N9Es cBkrx9YdAae8iu59 pMFlq3R9eNR5I7ZsIJWb rddbvKJlyVyrQA9vUHFq itqhCMWkvO2fJHEvX2e5 FlSmZxT5LPakH0To dpW3UWBxfRKuYIMwkVGA sA2oeolyz8smzgeyJjHw GREmHPi8BXq2PUYmxGkt WcQdTAU0LhQ9TAF5 yQDncU6exBlzozrdzY7j Oyc+MKa6k0ejaBJbPZ2y rYQ3HU99WH35aJIii4D1 aYR7J0GwMHIhfdmm uwtbvYB1HJYzJORjvN40 Sj3ljWbzKh0tNTHiDFR7 GSGigPCzX1GlzV0yBsLj LARnOXSrA1HydEXv BQwzU607IUwuZtF3CJKm quOzO9JyZCZtcAtqIaT6 h6Y3Zp6BHZ10SC65VU65 nNNbi0H8iAX5R7Dc VNZckdyanfgfoWV1BUOs JLXdaB56Wn5mrLjvIa4y BCLaXIN4PRBhhRRqL6Kn qS7nGnMqXOSdNIVw O9OabQIbNNzwE563EAci EaO9HEUiasHsS0ImSMYb bIlzVvQ2s9U4Ph4ITy07 WJ26IC87jNHzx7W9 vUK4B1KqVXYhkecwjifu xSD6MOBxPDBqvK45Wt9v hTeoYx9fVDJaUXI6TFFj sFRpG5FybH4rKtRt VBJgZOGxQ7KcvDAiVRdl G978WMegKnK1OTXmctKu M5DlHCMdkLnlQpY7g4G4 Or0HIWnnogj1X3Ak PjwvdHI+RC80DQGmLN68 pTXsyRJoo3ztiZo2GuNm DXKlIXR8aPpjBUfvj9Lx SHOyJ68dcYYag5J6 IGN (more content not included)... [facility] Consent Formson 03-04-2021 Consent Forms [id number] #[email or web address] [facility] Electronic Messagingon 03-04 Electronic Messaging --- --- --- --- --- --- --- --- --- From: [employer] ([email or web address]), Directtest To: ZAINA WINTERS Sent: 03/04/21 10:12:15 AM EST Subject: Discharge Summary Ready to View A summary regarding your recent visit is available in the Documents section of your Health Record. [facility] MAGR Intraoperative Recordon 03-04-2021 MAGR Intraoperative Record MAGR Intra-Op Record Summary Primary Physician: DAVID AWAD Finalized Date/Time: 03/04/21 08:14:12 Pt. Name: ZAINA WINTERS.O.B./Sex: 1950 MALE Med Rec #: [id number] Physician: DAVID AWAD Financial #: [id number] Pt. Type: O Room/Bed: 231/1 Admit/Disch: 03/02/21 05:52:00 - 03/03/21 14:09:00 Institution: [...] Role Performed Surgeon - Primary Anesthesiologist of [employer] Agent Record Time In 03/02/21 08:00:00 03/02/21 08:00:00 03/02/21 08:00:00 Time Out 03/02/21 12:09:00 03/02/21 12:09:00 03/02/21 12:09:00 Procedure Arthroplasty Knee Arthroplasty Knee Arthroplasty Knee Total(Left) Total(Left) Total(Left) Last Modified By: Jo-Ann Schwab RN, Barbara RN Long, Barbara RN 03/02/21 12:19:51 03/02/21 12:19:51 03/02/21 12:19:51 Entry 4 Entry 5 Entry 6 Case Attendee Marjorie Esteves REGULATORY COMPLIANCE COORDINATOR, Sue Horner REGULATORY COMPLIANCE COORDINATOR Role Performed Scrub Personnel Extension Professor Extension Professor Time In 03/02/21 08:00:00 03/02/21 08:00:00 03/02/21 [...] Modified By: Zaheer (more content not included)... Normal [facility] Outside Recordson 03-04-2021 Outside Records [id number] [facility]21 Provider Orders [id number] #1.00[facility] Telemetry Stripson 2 Telemetry Strips [id number] [facility] .Auto Diff 1on 03-03-2021 Auto [place] % 10 % Normal -12 [facility] Comment on above: Performed By: #### 1 [id number], 44211531, 4127526737, 5997166224, 7875115, 8264052676 ####[facility] (DEFAULT)[address] [place] [address] Baso Abs# 0.0 x10 Normal 0.0-0.2 [facility] Comment on above: Performed By: #### 1 [id number], 18063665, 6912683253, 1762280656, 5538835, 4965799923 ####[facility] (DEFAULT)[address] [place] [address] Basophils/100 WBC (Bld) 0.0 % Low 0.2-2.0 [facility] Comment on above: Performed By: #### 1 [id number], 49256897, 5355400953, 1504510617, 0402910, ####[facility] (DEFAULT)[address] [place] [address] Eos Abs# 0.0 x10 Normal 0.0-0.4 [facility] Comment on above: Performed By: #### 1 [id number], 94180336, 6473437309, 3629634608, 5852861, ####[facility] (DEFAULT)[address] [place] [address] Eosinophils/100 WBC (Bld) 0.0 % Low 0.9-4.0 [facility] Comment on above: Performed By: #### 1 [id number], 99103738, 3846568314, 3848660325, , ####[facility] (DEFAULT)[address] [place] [address] Lymph Abs# 1.9 x10 Normal 1.3-2.9 [facility] Comment on above: Performed By: #### 1 [id number], 32898008, 0573356242, 1502443185, 9060655, ####[facility] (DEFAULT)[address] [place] [address] Lymphocytes/100 WBC (Bld) 10 % Low 14-48 [facility] Comment on above: Performed By: #### 1 [id number], 17780660, 3218107069, 2992036409, 6918623, 8727399916 ####[facility] (DEFAULT)[address] [place] [address] [place] Abs# 1.9 x10 High 0.0-0.8 [facility] Comment on above: Performed By: #### 1 [id number], 24364321, 9058051721, 0312382966, 3146973, 2940445832 ####[facility] (DEFAULT)[address] [place] [address] Neut Abs# 16.2 x10 High 1.5-9.2 [facility] Comment on above: Performed By: #### 1 [id number], 20479632, 2145633423, 1844317382, 6952655, 9497129029 ####[facility] (DEFAULT)[address] [place] [address] Neutrophils/100 WBC (Bld) 81 % Normal 44-88 [facility] Comment on above: Performed By: #### 1 270527151, 33711877, 2633092550, 6724671012, 2681296, 9273775297 ####[facility] (DEFAULT)[address] [place] [address] CBC w/ Auto Diffon 2 Erythrocyte distribution width (RBC) [Ratio] 13.5 % Normal 11.5-15.0 [facility] Comment on above: Performed By: #### 1 [id number], 62758849, 2404398626, 3532827015, 7203572, 7204219262 ####[facility] (DEFAULT)[address] [place] [address] Hematocrit (Bld) [Volume fraction] 40.5 % Normal 34.8-51.9 [facility] Comment on above: Performed By: #### 1 549625131, 37555275, 0162507355, 4479035632, 9975546, 2287851276 ####[facility] (DEFAULT)[address] [place] [address]87 Hemoglobin (Bld) [Mass/Vol] 12.8 g/dL Normal 11.8-17.7 [facility] Comment on above: Performed By: #### 1 [id number], 49772988, 5124472335, 2263592908, 3817991, 5569837716 ####[facility] (DEFAULT)[address] [place] [address] Instr WBC 20.1 x10 Invalid Interpretation Code [facility] Comment on above: Performed By: #### 1 [id number], 36237958, 7967219679, 8068369222, 5403464, 2902829724 ####[facility] (DEFAULT)[address] [place] [address] Man Diff? Auto Normal [facility] Comment on above: Performed By: #### 1 984256035, 80733556, 7014520622, 6004157140, 5052732, 6111453288 ####[facility] (DEFAULT)[address] [place] [address]52 MCH (RBC) [Entitic mass] 30 pg Normal 24-34 [facility] Comment on above: Performed By: #### 1 548362186, 27068569, 6914107031, 6507901145, 8014145, 8656921212 ####[facility] (DEFAULT)[address] [place] [address]79 MCHC (RBC) [Mass/Vol] 32 g/dL Normal 26-37 [facility] Comment on above: Performed By: #### 1 [id number], 11652538, 8284424717, 2823542235, 4405986, 6863651494 ####[facility] (DEFAULT)[address] [place] [address] MCV (RBC) [Entitic vol] 96 fL Normal 81-100 [facility] Comment on above: Performed By: #### 1 [id number], 37873092, 2817538807, 1359032322, 5797884, 5847211943 ####[facility] (DEFAULT)[address] [place] [address]29[address] Platelet 275 x10 Normal 138-427 [facility] Comment on above: Performed By: #### 1 762991459, 84876846, 0273099709, 2634233838, 3268451, 4289155865 ####[facility] (DEFAULT)[address] [place] [address] Platelet mean volume (Bld) [Entitic vol] 10.3 fL High 6.3-10.2 [facility] Comment on above: Performed By: #### 1 [id number], 09726219, 4279374288, 3564529890, 0578044, 4076631971 ####[facility] (DEFAULT)[address] [place] [address] 20[address] RBC 4.24 x10 Normal 3.70-5.30 [facility] Comment on above: Performed By: #### 1 693399239, 15512820, 3928971360, 1655883158, 3100280, 5058448167 ####[facility] (DEFAULT)[address] [place] [address] WBC 20.1 x10 High 3.5-10.5 [facility] Comment on above: Result Comment: Slid e Reviewed Performed By: #### 1 782437396, 15432927, 5580693653, 3733485746, 0524311, 5386987178 ####[facility] (DEFAULT)[address] [place] [address] Electrolyte Panel Standardon 03-03-2021 Anion gap [Moles/Vol] 17.0 mmol/L Normal 5.0-19.0 [facility] Comment on above: Performed By: #### 1 [id number], 42198180, 7797116236, 4783279419, 3160268, 4827106873 ####[facility] (DEFAULT)[address] [place] [address] 42812 Chloride [Moles/Vol] 97 mmol/L Low 101-111 [facility] Comment on above: Performed By: #### 1 372127153, 75158249, 3437372317, 2211697274, 8084560, 9004714165 ####[facility] (DEFAULT)[address] [place] [address]7072 CO2 [Moles/Vol] 26 mmol/L Normal 21-32 [facility] Comment on above: Performed By: #### 1 903146767, 58518370, 8294183273, 9723219243, 9129604, 4487018361 ####[facility] (DEFAULT)[address] [place] [address] 11816 Potassium [Moles/Vol] 3.9 mmol/L Normal 3.6-5.1 [facility] Comment on above: Performed By: #### 1 912742374, 56956533, 3785862734, 3788259734, 2730346, 5334385526 ####[facility] (DEFAULT)[address] [place] [address] Sodium [Moles/Vol] 136.0 mmol/L Normal 136.0-144.0 [facility] Comment on above: Performed By: #### 1 [id number], 68895266, 2894192597, 7820931153, 5690829, 9962500806 ####[facility] (DEFAULT)[address] [place] [address] Extra Greenon 03-03-2021 Tube Collected Yes Invalid Interpretation Code [facility] Comment on above: Performed By: #### 1 [id number], 98503575, 1549002158, 7779353757, 4853451, 8865606611 ####[facility] (DEFAULT)[address] [place] [address] Inpatient Patient Summaryon 03-03-2021 Inpatient Patient Summary [address] [address] Patient Discharge Instructions Name: ZAINA WINTERS : 1950 Patient Address: [address] [place] [address] Primary Care Provider: Name: Jeannine Hurley After you are discharged if you find you have any questions, please, call [phone] ext [phone] to speak to a nurse. Discharge Diagnosis: [...] alcohol and/or drug addiction problems; contact the [facility] 05/09 Crisis Hotline -Text 4HOPE to 069111. If you received any narcotics, sedation, or [...] business decisions or sign any legal documents [facility] would like to thank you for allowing us to assist you with your healthcare needs. The following includes patient education materials and information regarding your injury/illness. ZAINA WINTERS has been given the following list of follow-up instructions, prescriptions, and patient education materials: Follow-up Instructions With: Address: When: Marina Redd [address] [place] [address], [facility] [address] [place], [place] [id number] Business (1) 03/15/2021 10:30 AM With: Address: When: Jeannine Evangelista [address] [place], [place] [id number] Business (1) Medications During the course of [...] mg oral (more content not included)... [facility]2021 [facility] Postoperative Record [facility] Phase II Record Summary Primary Physician: DAVID AWAD Finalized Date/Time: 03/03/21 08:37:51 Pt. Name: ZAINA WINTERS /Sex: 1950 MALE Med Rec #: [id number] Physician: DAVID AWAD Financial #: [id number] Pt. Type: O Room/Bed: 231/1 Admit/Disch: 03/02/21 05:52:00 - Institution: Phase II [...] Signed By: Vianca Celaya RN 03/03/21 08:37 Normal [facility] Nutrition Noteon 03-03-2021 Nutrition Note Pt admitted for scheduled Lt total knee surgery. Diet advanced to 3000kcal DM, along w/ usual post op vitamins/minerals and oral nutritional supplements; adjusted by junior copywriter to 2000kcal to better meet nutritional needs without overcompensating. Labs reviewed, BS 138-177mg/dl ideal post op. Pt at high nutrition risk r/t age greater than 65y, however, no immediate nutrition concerns at this time. Will monitor for changes. Normal [facility] Anesthesia Noteon 03-02-2021 Anesthesia Note Patient: [...] on: 03/02/2021 12:40 EST] Dre Santos DO [facility] Anesthesia Note Patient: ZAINA WINTERS [...] = 20 mL, 100 mL/hr, IV Piggyback, Dock Operator tranexamic acid: 1,000 mg = 100 mL, 300 mL/hr, IV Piggyback, Dock Operator tranexamic acid: 1,000 mg = 100 mL, 300 mL/hr, IV Piggyback, Dock Operator Documented Medications Documented Eliquis 5 mg [...] All Problems Atrial fibrillation / SNOMED CT 84161644 / Confirmed COVID-19 / SNOMED CT 3162422417 / Confirmed Diabetes / SNOMED CT 522732623 / Confirmed FH: hypertension / SNOMED CT 227225317 / Confirmed 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 Comments: 02/04/2021 10:08 Oliva Van RN surgery [...] review ECG interpretation: Normal sinus rhythm. Plan [place] [employer] Anesthesiologists#(A SA) physical status classification: [...] Aiden Santos (more content not included)... Normal [facility] Intraoperative Recordon 03-02-2021 [facility] Intraoperative Record [facility] Intra-Op Record Summary Primary Physician: Finalized Date/Time: 03/02/21 08:23:07 Pt. Name: ZAINA WINTERS /Sex: 1950 MALE Med Rec #: [id number] Physician: DAVID AWAD Financial #: [id number] Pt. Type: D Room/Bed: / Admit/Disch: 03/02/21 [...] Draper, Lora RN Role Performed Anesthesiologist of [employer] Agent [employer] Agent Record Time In 03/02/21 07:33:00 03/02/21 07:33:00 [...] Airway Device Na (more content not included)... [facility] MAGR PACU Recordon 2 MAGR PACU Record MAGR PACU Record Summary Primary Physician: DAVID AWAD Finalized Date/Time: 03/02/21 13:11:26 Pt. Name: ZAINA WINTERS./Sex: 1950 MALE Med Rec #: [id number] Physician: DAVID AWAD Financial #: [id number] Pt. Type: D Room/Bed: [facility] Admit/Disch: 03/02/21 05:52:00 - Institution: PACU Case Times MAGR Entry 1 In PACU I 03/02/21 12:07:00 Discharge from PACU 03/02/21 12:58:00 I Last Modified By: Rosy Gaxiola RN 03/02/21 12:58:08 General Comments: Pt stable. VS stable. Pain level 8/10. Report given to LESLEY Velásquez at bedside. Finalized By: Rosy Gaxiola RN Document Signatures Signed By: Rosy Gaxiola RN 03/02/21 13:11 [facility] MAGR Preoperative Recordon 0 03-02-2021 MAGR Preoperative Record MAGR Pre-Op Record Summary Primary Physician: DAVID AWAD Finalized Date/Time: 03/02/21 08:24:03 Pt. Name: ZAINA WINTERS Carmen Fierro./Sex: 1950 MALE Med Rec #: [id number] Physician: DAVID AWAD Financial #: [id number] Pt. Type: D Room/Bed: / Admit/Disch: 03/02/21 [...] consent correct. General Comments: Pt arrives to w ambulatory. Pt has #7 pain in left knee, Pt denies cp, cough or flu like symptoms. Pt is sob with ambulation which is normal. Pt denies pacemaker/defibillat or or sleep apnea. Finalized By: Rita Molina RN Document Signatures Signed By: Rita Molina RN 03/02/21 08:24 Normal [facility] POCT Glucose Levelon 022 Glucose [Mass/Vol] 177 mg/dL High 74-118 [facility] Comment on above: Performed By: #### 4 [id number] #### [facility] (DEFAULT) [address] [place] [address] 33666 Glucose [Mass/Vol] 138 mg/dL High 74-118 [facility] Comment on above: Performed By: #### 4 [id number] ####[facility] (DEFAULT)[address] [place] [address] 74521 Patient Handouton 03-02-2021 Patient Handout POST OPERATIVE [...] follow up in office with physician assistant clinical director Justo Redd as scheduled #9 NOMS [id number] [...] the nearest hospital's emergency services department. Normal [facility] XR Knee One or Two Views [...] MD 03/02/21 1:56 pm Technologist: Evelia ESCOBAR [facility] 2019 Novel Coronavirus (CoVI D-19), JULISSA LCon 03-01-2021 SARS-CoV-2 (COVID-19) RNA JULISSA+probe Ql (Unsp spec) Not detected Invalid Interpretation Code Not Detected [facility] Comment on above: Order Comment: [id number] Result Comment: This nucleic acid amplification test was developed and its performance characteristics determined by [employer]. Nucleic acid amplification tests include RT- PCR [...] result in this assay. Performed At: [address] [id number] Zay Landa PhD Ph:[phone] Performed By: #### 1 [id number] #### [facility] (DEFAULT) [address] [place] [address] 22797 Progress Note - Nurseon 02-13 Progress Note - Nurse Pre-op call for 03-02-2021 surgery made- patient informed of arrival time of 0600 tomorrow ,NPO after midnight except for any medication that he was instructed to take in morning, hibiclens shower x2-patient with understanding. [Electronically Signed on: 03/01/2021 09:42 EST] Rita Molina RN [Verified on: 03/01/2021 09:42 EST] Rita Molina RN [facility] Progress Note - Nurseon 01-14 Progress Note - Nurse PAT review done per Dr. Mccauley, no orders received. [Electronically Signed on: 02/08/2021 10:37 EST] Oliva Rabago RN [Verified on: 02/08/2021 10:37 EST] Oliva Rabago RN [facility] .Auto Diff 02-04-2021 Auto [place] % 10 % Normal 02-24 [facility] Comment on above: Performed By: #### 1 [id number], [id number], [id number] ####[facility] (DEFAULT)[address] [place] [address] Baso Abs# 0.0 x10 Normal 0.0-0.2 [facility] Comment on above: Performed By: #### 1 [id number], [id number], [id number] ####[facility] (DEFAULT)[address] [place] [address] Basophils/100 WBC (Bld) 0.3 % Normal 0.2-2.0 [facility] Comment on above: Performed By: #### 1 [id number], [id number], [id number] ####[facility] (DEFAULT)[address] [place] [address] 24758 Eos Abs# 0.1 x10 Normal 0.0-0.4 [facility] Comment on above: Performed By: #### 1 [id number], [id number], [id number] ####[facility] (DEFAULT)[address] [place] [address] 17403 Eosinophils/100 WBC (Bld) 1.1 % Normal 0.9-4.0 [facility] Comment on above: Performed By: #### 1 [id number], [id number], [id number] ####[facility] (DEFAULT)[address] [place] [address] 98169 Lymph Abs# 2.0 x10 Normal 1.3-2.9 [facility] Comment on above: Performed By: #### 1 [id number], [id number], [id number] ####[facility] (DEFAULT)[address] [place] [address] 65552 Lymphocytes/100 WBC (Bld) 27 % Normal 14-48 [facility] Comment on above: Performed By: #### 1 [id number], [id number], [id number] ####[facility] (DEFAULT)[address] [place] [address] 12544 [place] Abs# 0.7 x10 Normal 0.0-0.8 [facility] Comment on above: Performed By: #### 1 [id number], [id number], [id number] ####[facility] (DEFAULT)[address] [place] [address] 66429 Neut Abs# 4.5 x10 Normal 1.5-9.2 [facility] Comment on above: Performed By: #### 1 [id number], [id number], [id number] ####[facility] (DEFAULT)[address] [place] [address] 56009 Neutrophils/100 WBC (Bld) 62 % Normal 44-88 [facility] Comment on above: Performed By: #### 1 [id number], [id number], [id number] ####[facility] (DEFAULT)[address] [place] [address] BMP Standardon 02-04-2021 eGFR Non AA >60 Invalid Interpretation Code [facility] Comment on above: Performed By: #### 1 [id number], [id number], [id number] ####[facility] (DEFAULT)[address] [place] [address] 47984 eGFR AA >60 Invalid Interpretation Code [facility] Comment on above: Result Comment: [employer] korina Kidney disease could be indicated at eGFRs of less than 60 ml/min/1.73m2. Kidney Failure is indicated at less than 15 ml/min/1.73m2 Performed By: #### 1 [id number], [id number], [id number] ####[facility] (DEFAULT)[address] [place] [address] 47691 Anion gap [Moles/Vol] 14.0 mmol/L Normal 5.0-19.0 [facility] Comment on above: Performed By: #### 1 [id number], [id number], [id number] ####[facility] (DEFAULT)[address] [place] [address] 65692 Calcium [Mass/Vol] 9.5 mg/dL Normal 8.9-10.3 [facility] Comment on above: Performed By: #### 1 [id number], [id number], [id number] ####[facility] (DEFAULT)[address] [place] [address] 12070 Chloride [Moles/Vol] 99 mmol/L Low 101-111 [facility] Comment on above: Performed By: #### 1 [id number], [id number], [id number] ####[facility] (DEFAULT)[address] [place] [address] 41294 CO2 [Moles/Vol] 28 mmol/L Normal 21-32 [facility] Comment on above: Performed By: #### 1 [id number], [id number], [id number] ####[facility] (DEFAULT)[address] [place] [address] 79946 Creatinine [Mass/Vol] 0.89 mg/dL Low 0.90-1.30 [facility] Comment on above: Performed By: #### 1 [id number], [id number], [id number] ####[facility] (DEFAULT)[address] [place] [address] 21968 Glucose [Mass/Vol] 135.0 mg/dL High 74.0-118.0 [facility] Comment on above: Performed By: #### 1 [id number], [id number], [id number] ####[facility] (DEFAULT)[address] [place] [address] 86893 Osmolality 278 mOsm/L Invalid Interpretation Code [facility] Comment on above: Performed By: #### 1 [id number], [id number], [id number] ####[facility] (DEFAULT)[address] [place] [address] 89500 Potassium [Moles/Vol] 4.1 mmol/L Normal 3.6-5.1 [facility] Comment on above: Performed By: #### 1 [id number], [id number], [id number] ####[facility] (DEFAULT)[address] [place] [address] 64733 Sodium [Moles/Vol] 137.0 mmol/L Normal 136.0-144.0 [facility] Comment on above: Performed By: #### 1 [id number], [id number], [id number] ####[facility] (DEFAULT)[address] [place] [address] 61098 Urea nitrogen [Mass/Vol] 19 mg/dL Normal 8-26 [facility] Comment on above: Performed By: #### 1 [id number], [id number], 9371765 ####[facility] (DEFAULT)[address] [place] [address] 69352 Urea nitrogen/Creatinine [Mass ratio] 21.0 mg/mg High 4.6-16.2 [facility] Comment on above: Performed By: #### 1 [id number], 94069268, 7680508 ####[facility] (DEFAULT)[address] [place] [address] 87832 CBC w/ Auto Diffon 1 Erythrocyte distribution width (RBC) [Ratio] 13.4 % Normal 11.5-15.0 [facility] Comment on above: Performed By: #### 1 [id number], [id number], 1355672 ####[facility] (DEFAULT)[address] [place] [address] 38571 Hematocrit (Bld) [Volume fraction] 48.0 % Normal 34.8-51.9 [facility] Comment on above: Performed By: #### 1 [id number], 53702966, 9312172 ####[facility] (DEFAULT)[address] [place] [address] 23615 Hemoglobin (Bld) [Mass/Vol] 15.5 g/dL Normal 11.8-17.7 [facility] Comment on above: Performed By: #### 1 [id number], 35365114, 5122323 ####[facility] (DEFAULT)[address] [place] [address] 91093 Instr WBC 7.3 x10 Invalid Interpretation Code [facility] Comment on above: Performed By: #### 1 [id number], [id number], [id number] ####[facility] (DEFAULT)[address] [place] [address] 67745 Man Diff? Auto Normal [facility] Comment on above: Performed By: #### 1 [id number], [id number], 0251705 ####[facility] (DEFAULT)[address] [place] [address] 93120 MCH (RBC) [Entitic mass] 30 pg Normal 24-34 [facility] Comment on above: Performed By: #### 1 [id number], 29383915, 7482835 ####[facility] (DEFAULT)[address] [place] [address] 33137 MCHC (RBC) [Mass/Vol] 32 g/dL Normal 26-37 [facility] Comment on above: Performed By: #### 1 [id number], 08105961, 2453725 ####[facility] (DEFAULT)[address] [place] [address] 66741 MCV (RBC) [Entitic vol] 94 fL Normal 81-100 [facility] Comment on above: Performed By: #### 1 [id number], 67300868, 1389753 ####[facility] (DEFAULT)[address] [place] [address] 04969 Platelet 196 x10 Normal 138-427 [facility] Comment on above: Performed By: #### 1 [id number], [id number], 5246870 ####[facility] (DEFAULT)[address] [place] [address] 16566 Platelet mean volume (Bld) [Entitic vol] 10.3 fL High 6.3-10.2 [facility] Comment on above: Performed By: #### 1 [id number], 06996021, 1536531 ####[facility] (DEFAULT)[address] [place] [address] 01350 RBC 5.13 x10 Normal 3.70-5.30 [facility] Comment on above: Performed By: #### 1 [id number], 74093655, 0292489 ####[facility] (DEFAULT)[address] [place] [address] 69768 WBC 7.3 x10 Normal 3.5-10.5 [facility] Comment on above: Performed By: #### 1 [id number], [id number], 5291502 ####[facility] (DEFAULT)[address] [place] [address] UA w Culture if Ind Standard on 02-04-2021 Breakpoint UA [facility] Comment on above: Performed By: #### 1 [id number] #### [facility] (DEFAULT) [address] [place] [address] 09492 Color (U) Yellow [facility] Comment on above: Performed By: #### 1 [id number] #### [facility] (DEFAULT) [address] [place] [address] 33241 Culture? No [facility] Comment on above: Result Comment: Resu lt created by rule GL_MAGR_ADD_UA_[id number] Result created by rule GL_MAGR_ADD_UA_CULT1 Performed By: #### 1 [id number] #### [facility] (DEFAULT) [address] [place] [address] 22023 Glucose (U) [Mass/Vol] Negative [facility] Comment on above: Performed By: #### 1 [id number] #### [facility] (DEFAULT) [address] [place] [address] 61441 Ketones Ql (U) Negative Normal [facility] Comment on above: Performed By: #### 1 [id number] #### [facility] (DEFAULT) [address] [place] [address] 54030 Micro? Not Indicated Normal [facility] Comment on above: Result Comment: Resu lt created by rule GL_MAGR_ADD_UA_MICRO Performed By: #### 1 [id number] #### [facility] (DEFAULT) [address] [place] [address] 09117 UA Bilirubin Negative Normal [facility] Comment on above: Performed By: #### 1 [id number] #### [facility] (DEFAULT) [address] [place] [address] UA Blood Negative Normal [facility] Comment on above: Performed By: #### 1 [id number] #### [facility] (DEFAULT) [address] [place] [address] UA Clarity CLEAR Normal CLEAR [facility] Comment on above: Performed By: #### 1 [id number] #### [facility] (DEFAULT) [address] [place] [address] 46905 UA Leuk Est Negative Normal NEGATIVE [facility] Comment on above: Performed By: #### 1 [id number] #### [facility] (DEFAULT) [address] [place] [address] 11482 UA Nitrite Negative Normal NEGATIVE [facility] Comment on above: Performed By: #### 1 [id number] #### [facility] (DEFAULT) [address] [place] [address] 82107 UA pH 6.0 Normal 5-8 [facility] Comment on above: Performed By: #### 1 [id number] #### [facility] (DEFAULT) [address] [place] [address] 49390 UA Protein Negative Normal NEGATIVE [facility] Comment on above: Performed By: #### 1 [id number] #### [facility] (DEFAULT) [address] [place] [address] 85741 UA Spec Grav >=1.030 Normal 1.001-1.035 [facility] Comment on above: Performed By: #### 1 [id number] #### [facility] (DEFAULT) [address] [place] [address] UA Urobilinogen 0.2 mg/dL Normal 0.2-1.0 [facility] Comment on above: Performed By: #### 1 [id number] #### [facility] (DEFAULT) [address] [place] [address] Urine Source Clean Catch [facility] Comment on above: Performed By: #### 1 [id number] #### [facility] (DEFAULT) [address] [place] [address] XR Bone Length Studies Sc[facility] 02-04-2021 XR Bone Length Studies Scanograms [...] John Mckenna MD 02/08/21 7:27 am Technologist: LTC,S [facility] Echo 2D w doppler w color co mpleteOrdered By: Ej Foster on 09-23-2020 [facility] Transthoracic Echocardiography Report (TTE) Patient Name HEBERLING Date of Study 09/23/2020 ZAINA Morales Date of 1950 Gender Male Age 69 year(s) Race Room Number Height: 72 inch, 182.88 cm Corporate ID [id number] Weight: 288 pounds, 130.6 kg # Patient Acct [id number] BSA: 2.49 m^2 BMI: 39.06 # kg/m^2 MR # [id number] Receiving Room Clerk Debi Lopez Interpreting Physician Ej Foster Fellow Referring Nurse Practitioner Interpreting Referring Physician Ej Foster Type of Study TTE procedure:2D Echocardiogram, M-Mode, Doppler, Color Doppler. Procedure Date Date: 09/23/2020 Start: 11:32 AM Study Location: [facility] Indications:Atrial fibrillation. History / Tech. Comments: [...] surface area. Signature Electronically signed by [facility] on 09/23/2020 05:26 PM FINDINGS Left [...] TR Velocity: 2.17 m/s Peak TR Gradient: 18.10783 mmHg Estimated RA Pressure: 3 mmHg Estimated PASP: 21.79 mmHg Diastology / Tissue Doppler Lateral Wall E' velocity:0.07 m/s Lateral Wall E/E':7.23 [employer] Work Phone: Shankar, pn Incoming Cardio Results From [facility] - 09/23/2020 5:27 PM EDT [facility] Transthoracic Echocardiography Report (TTE) Patient Name HEBERASHTYN Date of Study 09/23/2020 ZAINA Morales Date of 1950 Gender Male Age 69 year(s) Race Room Number Height: 72 inch, 182.88 cm Corporate ID [id number] Weight: 288 pounds, 130.6 kg # Patient Acct [id number] BSA: 2.49 m^2 BMI: 39.06 # kg/m^2 MR # [id number] Receiving Room Clerk Debi Lopez Interpreting Physician Ej Foster Fellow Referring Nurse Practitioner Interpreting Referring Physician Ej Foster Fellow Type of Study TTE procedure:2D Echocardiogram, M-Mode, Doppler, Color Doppler. Procedure Date Date: 09/23/2020 Start: 11:32 AM Study Location: [facility] Indications:Atrial fibrillation. History / Tech. Comments: [...] - - - Electronically signed by [facility]) on 09/23/2020 05:26 PM - FINDINGS [...] TR Velocity: 2.17 m/s Peak TR Gradient: 18.02202 mmHg Estimated RA Pressure: 3 mmHg Estimated PASP: 21.79 mmHg Diastology / Tissue Doppler Lateral Wall E' velocity:0.07 m/s Lateral Wall E/E':7.23 [employer] Phone: [employer] Phone: Basic Metabolic Panelon - Anion gap [Moles/Vol] 10 mmol/L 9 - 17 mmol/L [place], [place] Bun/Cre Ratio 21 High [place], [place] Calcium [Mass/Vol] 9.7 mg/dL 8.6 - 10. 4 mg/dL [place] Chloride [Moles/Vol] 101 mmol/L 98 - 10 7 mmol/L [place] CO2 [Moles/Vol] 28 mmol/L 20 - 31 mmol/L [place] Creatinine [Mass/Vol] 0.89 mg/dL 0.7 - 1.2 mg/dL [place] GFR >60 >60 mL/min [place], [place] GFR Non- >60 >60 mL/min [place] Glucose [Mass/Vol] 101 mg/dL High 70 - 99 mg/dL [place], [place] Interpretation and review of laboratory results Abnormal [place] Potassium [Moles/Vol] 4.3 mmol/L 3.7 - 5.3 mmol/L [place] Sodium [Moles/Vol] 139 mmol/L 135 - 144 mmol/L [place] Urea nitrogen [Mass/Vol] 19 mg/dL 8 - 23 mg/dL [place] Lipid Panelon 03-10-2020 Cholesterol [Mass/Vol] 162 mg/dL <200 [place] Comment on above: Cholesterol Guidelines: <200 Desirable 200-240 Borderline >240 Undesirable Cholesterol in HDL [Mass/Vol] 41 mg/dL >40 [place] Comment on above: HDL Guidelines: <40 Undesirable 40-59 Borderline >59 Desirable Cholesterol in LDL [Mass/Vol] 102 mg/dL 0 - 130 mg/dL [place] Comment on above: LDL Guidelines: <100 Desirable 100-129 Near to/above Desirable 130-159 Borderline >159 Undesirable Direct (measured) LDL and calculated LDL are not interchangeable tests. Cholesterol in VLDL [Mass/Vol] NOT REPORTED 1 - 30 mg/dL [place] Cholesterol.total/Ch olesterol in HDL [Mass ratio] 4 {ratio} <5 [place] Triglyceride [Mass/Vol] 97 mg/dL <150 [place] Comment on above: Triglyceride Guidelines: <150 Desirable 150-199 Borderline 200-499 High >499 Very high Based on AHA Guidelines for fasting triglyceride, November 2011. Metabolic Panelon 03-10-2020 GFR/1.73 sq M predicted among non-blacks MDRD (S/P/Bld) [Vol rate/Area] [place], [place] Comment on above: Stage 1: Some [...] body mass. Additional eGFR calculator available at: http://www.Care2Manage/multiple_crcl_2011.htm Basic Metabolic Panelon 12-0 Anion gap [Moles/Vol] 9 mmol/L 9 - 17 mmol/L [place] Bun/Cre Ratio 16 [place] Calcium [Mass/Vol] 9.6 mg/dL 8.6 - 10. 4 mg/dL [place] Chloride [Moles/Vol] 101 mmol/L 98 - 10 7 mmol/L [place] CO2 [Moles/Vol] 29 mmol/L 20 - 31 mmol/L [place] Creatinine [Mass/Vol] 0.76 mg/dL 0.7 - 1.2 mg/dL [place] GFR >60 >60 mL/min [place] GFR Non- >60 >60 mL/min [place] Glucose [Mass/Vol] 118 mg/dL High 70 - 99 mg/dL [place] Interpretation and review of laboratory results Abnormal [place] Potassium [Moles/Vol] 4.7 mmol/L 3.7 - 5.3 mmol/L [place] Sodium [Moles/Vol] 139 mmol/L 135 - 144 mmol/L [place] Urea nitrogen [Mass/Vol] 12 mg/dL 8 - 23 mg/dL [place] CBCon 01-22-2020 Erythrocyte distribution width (RBC) [Ratio] 14.2 % 11.8 - 14.4 % [place] Hematocrit (Bld) [Volume fraction] 43.4 % 40.7 - 50.3 % [place] Hemoglobin (Bld) [Mass/Vol] 13.4 g/dL 13 - 17 g/dL [place] MCH (RBC) [Entitic mass] 28.9 pg 25.2 - 33.5 pg [place] MCHC (RBC) [Mass/Vol] 30.9 g/dL 28.4 - 34.8 g/dL [place] MCV (RBC) [Entitic vol] 93.7 fL 82.6 - 102.9 fL [place] Platelet mean volume (Bld) [Entitic vol] 9.9 fL 8.1 - 13.5 fL [place], [place] Platelets (Bld) [#/Vol] 217 10*3/uL [place] RBC (Bld) [#/Vol] 4.63 10*6/uL 4.21 - 5.7 7 m/uL [place] WBC (Bld) [#/Vol] 0.0 10*3/uL 0.0 per 10 0 WBC [place] WBC (Bld) [#/Vol] 5.7 10*3/uL [place] ECHO Complete 2D W Doppler W Coloron 01-22-2020 [facility] Transthoracic Echocardiography Report (TTE) Patient Name HEBERLING Date of Study 01/22/2020 ZAINA Morales Date of 1950 Gender Male Age 69 year(s) Race Room Number Height: 73 inch, 185.42 cm Corporate ID [id number] Weight: 273 pounds, 123.8 kg # Patient Acct [id number] BSA: 2.46 m^2 BMI: 36.02 # kg/m^2 MR # [id number] Receiving Room Clerk Work,[facility] Interpreting Physician Ej Foster Fellow Referring Nurse Practitioner Interpreting Referring Physician jE Foster Fellow Type of Study TTE procedure:2D Echocardiogram, M-Mode, Doppler, Color Doppler. Procedure Date Date: 01/22/2020 Start: 09:22 AM Study Location: [facility] Indications:Atrial fibrillation, Dyspnea/SOB and History of [...] prior studies were available for comparison. Signature Electronically signed by [facility]) on 01/22/2020 05:08 PM FINDINGS Left Atrium The left atrium [...] Wall E' velocity:0.11 m/s Lateral Wall E/E':6.91 [facility] [place], [place] Shankar, Mhpn Incoming Cardio Results From [facility]/ - 01/22/2020 5:08 PM EST [facility] Transthoracic Echocardiography Report (TTE) Patient Name JHONBERASHTYN Date of Study 01/22/2020 ZAINA Morales Date of 1950 Gender Male Age 69 year(s) Race Room Number Height: 73 inch, 185.42 cm Corporate ID [id number] Weight: 273 pounds, 123.8 kg # Patient Acct [id number] BSA: 2.46 m^2 BMI: 36.02 # kg/m^2 MR # [id number] Receiving Room Clerk Nini Todd Interpreting Physician Ej Foster Fellow Referring Nurse Practitioner Interpreting Referring Physician Ej Foster Fellow Type of Study TTE procedure:2D Echocardiogram, M-Mode, Doppler, Color Doppler. Procedure Date Date: 01/22/2020 Start: 09:22 AM Study Location: [facility] Indications:Atrial fibrillation, Dyspnea/SOB and History of [...] Signature - - - Electronically signed by Ej Foster[facility] on 01/22/2020 05:08 PM - FINDINGS [...] Wall E' velocity:0.11 m/s Lateral Wall E/E':6.91 [place] Hemoglobin A1Con 01-22-2020 Glucose [Mass/Vol] 123 mg/dL [place] Comment on above: The ADA and AACC rec ommend providing the estimated average glucose result to permit better patient understanding of their HBA1c result. HbA1c (Bld) [Mass fraction] 5.9 % 4 - 6 % [place] Metabolic Panelon 01-22-2020 GFR/1.73 sq M predicted among non-blacks MDRD (S/P/Bld) [Vol rate/Area] [place] Comment on above: Stage 1: Some [...] body mass. Additional eGFR calculator available at: http://www.Care2Manage/multiple_crcl_2012.htm Troponin Ion 01-22-2020 Troponin I.cardiac [Mass/Vol] NOT REPORTED [place] Troponin T.cardiac [Mass/Vol] NOT REPORTED <0.03 ng/mL [place] Troponin, High Sensitivity 15 ng/L 0 - 22 ng/L [place] Comment on above: High Sensitivity Troponin values cannot be compared with other Troponin methodologies. Patients with high levels of Biotin oral intake (i.e >5mg/day) may have falsely decreased Troponin levels. Samples collected within 8 hours of biotin intake may require additional information for diagnosis. BNPon 12-16-2019 Natriuretic peptide B (Bld) [Mass/Vol] 595.0 pg/mL Normal <=900.0 The [facility] Comment on above: Performed By: #### T ROP, BNP, CMP, CRP #### [facility] Laboratory [address], [place] [address] Cheryl Srinivasan CBC AUTO DIFFon 12-16-2019 Basophils (Bld) [#/Vol] 0.0 103/ul Normal 0.0-0.1 [facility] Comment on above: Performed By: #### C BC #### [facility] Laboratory [address], [place] [address] Cheryljason Srinivasan Basophils/100 WBC (Bld) 0.1 % Critically low 0.2-2.0 [facility] Comment on above: Performed By: #### C BC #### [facility] Laboratory [address] [place], [place] [id number] Cheryl Zarina Eosinophils (Bld) [#/Vol] 0.0 103/ul Normal 0.0-0.7 [facility] Comment on above: Performed By: #### C BC #### [facility] Laboratory [address] [place], [place] [address] Cheryl Zarina Eosinophils/100 WBC (Bld) 0.0 % Critically low 0.9-7.0 [facility] Comment on above: Performed By: #### C BC #### [facility] Laboratory [address] [place] [address] Cheryl Zarina Erythrocyte distribution width (RBC) [Ratio] 12.9 % Normal 11.0-15.0 [facility] Comment on above: Performed By: #### C BC #### [facility] Laboratory [address] [place] [address] Cheryl Zarina Hematocrit (Bld) [Volume fraction] 45.2 % Normal 42.0-54.0 [facility] Comment on above: Performed By: #### C BC #### [facility] Laboratory [address] [place], [place] [address] Cheryl Zarina Hemoglobin (Bld) [Mass/Vol] 15.1 g/dL Normal 14.0-18.0 [facility] Comment on above: Performed By: #### C BC #### [facility] Laboratory [address] [place], [place] [address] Cheryl Zarina IG # 0.06 10e3/ul Critically high 0.00-0.03 [facility] Comment on above: Performed By: #### C BC #### [facility] Laboratory [address] [place], [place] [address] Cheryl Zarina IG % 0.6 % Critically high 0.0-0.5 The [facility] Comment on above: Performed By: #### C BC #### [facility] Laboratory [address] [place], [place] [address] Cheryl Zarina Lymphocytes (Bld) [#/Vol] 1.0 103/ul Critically low 1.2-3.8 [facility] Comment on above: Performed By: #### C BC #### [facility] Laboratory [address] [place], [place] [address] Cheryl Zarina Lymphocytes/100 WBC (Bld) 10.1 % Critically low 20.5-60.0 [facility] Comment on above: Performed By: #### C BC #### [facility] Laboratory [address] [place], [place] [address] Cheryl Zarina MANUAL DIFF REQ NO Normal [facility] Comment on above: Performed By: #### C BC #### [facility] Laboratory [address] [place], [place] [address] Cheryl Zarina MCH (RBC) [Entitic mass] 30.0 pg Normal 25.9-34.0 [facility] Comment on above: Performed By: #### C BC #### [facility] Laboratory [address] [place], [place] [address] Cheryljason Menaen MCHC (RBC) [Mass/Vol] 33.4 g/dL Normal 29.9-35.2 [facility] Comment on above: Performed By: #### C BC #### [facility] Laboratory [address] [place], [place] [address] Cheryljason Menaen MCV (RBC) [Entitic vol] 89.7 fL Normal 80.0-94.0 [facility] Comment on above: Performed By: #### C BC #### [facility] Laboratory [address] [place], [place] [address] Cheryl Zarina Monocytes (Bld) [#/Vol] 0.3 103/ul Normal 0.3-0.8 [facility] Comment on above: Performed By: #### C BC #### [facility] Laboratory [address] [place], [place] [address] Cheryl Zarina Monocytes/100 WBC (Bld) 3.4 % Normal 1.7-12.0 [facility] Comment on above: Performed By: #### C BC #### [facility] Laboratory [address] [place], [place] [address] Cheryl Zarina Neutrophils (Bld) [#/Vol] 8.3 103/ul Critically high 1.4-6.5 [facility] Comment on above: Performed By: #### C BC #### [facility] Laboratory [address] [id number] Cheryl Srinivasan Neutrophils/100 WBC (Bld) 85.8 % Critically high 43.0-75.0 [facility] Comment on above: Performed By: #### C BC #### [facility] Laboratory [address] [id number] Cheryljason Srinivasan Platelet mean volume (Bld) [Entitic vol] 9.7 fL Normal 9.5-13.5 The [facility] Comment on above: Performed By: #### C BC #### [facility] Laboratory [address] [place], [place] [address] Cheryl Srinivasan Platelets (Bld) [#/Vol] 270 103/ul Normal 150-450 [facility] Comment on above: Performed By: #### C BC #### [facility] Laboratory [address] [place], [place] [address] Cheryl Srinivasan RBC (Bld) [#/Vol] 5.04 106/ul Normal 4.70-6.10 [facility] Comment on above: Performed By: #### C BC #### [facility] Laboratory [address] [place], [place] [address] Cheryljason Srinivasan WBC (Bld) [#/Vol] 9.7 103/ul Normal 4.0-11.0 The [facility] Comment on above: Performed By: #### C BC #### [facility] Laboratory [address] [place], [place] [address] Cheryljason Srinivasan CRPon 12-16-2019 CRP [Mass/Vol] 12.3 mg/dL Critically high <=1.0 [facility] Comment on above: Performed By: #### C BC #### [facility] Laboratory [address] [place], [place] [address] Cheryljason Srinivasan CTA CHEST WO W CONon 020 [...] Date: 2019-12-16 05:43 Normal The [facility] D-DIMERon 12-16-2019 D-DIMER COMMENTS SEE BELOW Normal [facility] Comment on above: Result Comment: Incr eases [...] D DIM, PT, PTT #### [facility] Laboratory [address] [address] Cheryl Srinivasan Fibrin D-dimer FEU IA (Bld) [Mass/Vol] 0.84 ug/mL Critically high 0.19-0.50 [facility] Comment on above: Result Comment: test repeated critcal value verified Performed By: #### D DIM, PT, PTT #### [facility] Laboratory [address] [id number] Cheryl Srinivasan LACTATE/LACTIC ACIDon 2019 Lactate [Moles/Vol] 1.8 mmol/L Normal 0.7-2.0 [facility] Comment on above: Performed By: #### L ACT #### [facility] Laboratory [address] [id number] Cheryl Srinivasan PROF 14(COMP METB)on 020 Albumin [Mass/Vol] 3.2 g/dL Critically low 3.5-5.0 Th e [facility] Comment on above: Performed By: #### T ROP, BNP, CMP, CRP #### [facility] Laboratory [address] [id number] Cheryljason Srinivasan Albumin/Globulin [Mass ratio] 0.8 {ratio} Normal [facility] Comment on above: Performed By: #### T ROP, BNP, CMP, CRP #### [facility] Laboratory [address] [place] [address] Cheryl Zarina ALP [Catalytic activity/Vol] 85 U/L Normal 38-126 [facility] Comment on above: Performed By: #### T ROP, BNP, CMP, CRP #### [facility] Laboratory [address] [address] Cheryl Zarina ALT [Catalytic activity/Vol] 63 U/L Normal 21-72 [facility] Comment on above: Performed By: #### T ROP, BNP, CMP, CRP #### [facility] Laboratory [address] [place], [place] [address] Cheryl Zarina Anion gap [Moles/Vol] 14.2 mmol/L Normal [facility] Comment on above: Performed By: #### T ROP, BNP, CMP, CRP #### [facility] Laboratory [address] [address] Cheryl Zarina AST [Catalytic activity/Vol] 53 U/L Normal 17-59 The [facility] Comment on above: Performed By: #### T ROP, BNP, CMP, CRP #### [facility] Laboratory [address] [place], [place] [address] Cheryl Zarina Bilirubin Ql (U) 1.0 mg/dL Normal 0.2-1.3 [facility] Comment on above: Performed By: #### T ROP, BNP, CMP, CRP #### [facility] Laboratory [address] [place], [place] [address] Cheryl Zarina Calcium [Mass/Vol] 9.0 mg/dL Normal 8.4-10.2 [facility] Comment on above: Performed By: #### T ROP, BNP, CMP, CRP #### [facility] Laboratory [address] [address] Cheryl Zarina Chloride [Moles/Vol] 96 mmol/L Critically low 98-107 [facility] [place] Comment on above: Performed By: #### T ROP, BNP, CMP, CRP #### [facility] Laboratory [address] [address] Cheryl Zarina CO2 [Moles/Vol] 25.8 mmol/L Normal 22.0-30.0 [facility] Comment on above: Performed By: #### T ROP, BNP, CMP, CRP #### [facility] Laboratory [address] [place] [address] Cheryl Zarina Creatinine [Mass/Vol] 0.90 mg/dL Normal 0.66-1.25 [facility] Comment on above: Performed By: #### T ROP, BNP, CMP, CRP #### [facility] Laboratory [address] [place] [address] Cheryl Zarina EGFR-AF BARBADIAN >60 Normal >=60 [facility] Comment on above: Performed By: #### T ROP, BNP, CMP, CRP #### [facility] Laboratory [address] [place] [address] Cheryl Zarina EGFR-NON AF BAR[place]IAN >60 Normal >=60 [facility] Comment on above: Performed By: #### T ROP, BNP, CMP, CRP #### [facility] Laboratory [address] [place] [address] Cheryl Zarina Globulin (S) [Mass/Vol] 4.1 g/dL Normal The [facility] Comment on above: Performed By: #### T ROP, BNP, CMP, CRP #### [facility] Laboratory [address] [place] [address] Cheryl Zarina Glucose [Mass/Vol] 146 mg/dL Critically high 74-106 [facility] Comment on above: Performed By: #### T ROP, BNP, CMP, CRP #### [facility] Laboratory [address] [address] Cheryl Zarina Potassium [Moles/Vol] 4.0 mmol/L Normal 3.4-5.0 [facility] Comment on above: Performed By: #### T ROP, BNP, CMP, CRP #### [facility] Laboratory [address] [id number] Cheryl Zarina Protein [Mass/Vol] 7.3 g/dL Normal 6.1-8.2 [facility] Comment on above: Performed By: #### T ROP, BNP, CMP, CRP #### [facility] Laboratory [address] [id number] Cheryl Zarina Sodium [Moles/Vol] 132 mmol/L Critically low 137-145 [facility] Comment on above: Performed By: #### T ROP, BNP, CMP, CRP #### [facility] [address] [place] [address] Cheryl Zarina Urea nitrogen [Mass/Vol] 18.0 mg/dL Normal 9.0-20.0 [facility] Comment on above: Performed By: #### T ROP, BNP, CMP, CRP #### [facility] Laboratory [address] [place], [place] [address] Cheryl Zarina Urea nitrogen/Creatinine [Mass ratio] 20.0 mg/mg Normal [facility] Comment on above: Performed By: #### T ROP, BNP, CMP, CRP #### [facility] Laboratory [address] [place], [place] [address] Cheryl Zarina PROTIMEon 12-16-2019 INR Coag (PPP) [Relative time] 0.97 {INR} Normal [facility] Comment on above: Performed By: #### D DIM, PT, PTT #### [facility] Laboratory [address] [place], [place] [address] Cheryl Zarina PT Coag (PPP) [Time] PLEASE NOTE: NORMAL RANGE CHANGE 10-31-2013 DUE TO REAGENT LOT CHANGE Normal [facility] Comment on above: Performed By: #### D DIM, PT, PTT #### [facility] Laboratory [address] [place], [place] [address] Cheryl Zarina PT Coag (PPP) [Time] 10.3 s Normal 9.0-11.6 [facility] Comment on above: Performed By: #### D DIM, PT, PTT #### [facility] Laboratory [address] [place] [address] Cheryl Srinivasan PT Coag (PPP) [Time] SEE BELOW Normal [facility] Comment on above: Result Comment: CHEMO RED INR: 2.0 - 3.0 CONDITIONS NOT LISTED BELOW 2.5 - 3.5 FOR PROSTHETIC HEART VALVE REPLACEMENT 2.5 - 3.5 RECURRENT THROMBOSIS Performed By: #### D DIM, PT, PTT #### [facility] Laboratory [address] [place] [address] Cheryl Srinivasan PTTon 12-16-2019 aPTT Coag (Bld) [Time] PLEASE NOTE: NORMAL RANGE CHANGE 01-07-2015 DUE TO REAGENT LOT CHANGE Normal [facility] Comment on above: Performed By: #### D DIM, PT, PTT #### [facility] Laboratory [address] [place] [address] Cheryl Srinivasan aPTT Coag (Bld) [Time] 26.0 s Normal 22.3-36.2 [facility] Comment on above: Performed By: #### D DIM, PT, PTT #### [facility] Laboratory [address] [place] [address] Cheryl Srinivasan Rapid Covid-19 PCRon 020 mBlox LDT Info SEE BELOW Normal The [facility] Comment on above: Result Comment: This test is not yet approved or cleared by the [place] Food and Drug Administration (FDA) . This test was developed by [employer], [facility]. The performance characteristics of this test were validated by The [facility]. The results are not intended to be used as the sole means for clinical diagnosis or patient management decisions. The [facility] is authorized under Clinical Laboratory Improvement Amendments (CLIA) to perform high-complexity testing. When diagnostic testing is negative, the possibility of a false negative should be considered in the context of a patients recent exposures and the presence of clinical signs and symptoms consistent with SARS-CoV-2. Performed By: #### C VDRPD #### [facility] Laboratory [address] [place] [address] Cheryl Srinivasan SARS-CoV-2 DETECTED NOT DETECTED The [facility] Comment on above: Result Comment: . Performed By: #### C VDRPD #### [facility] Laboratory [address] [place] [address] Cheryl Srinivasan TROPONIN - Ion 12-16-2019 Troponin I.cardiac [Mass/Vol] ng/mL Normal <=0.034 The [facility] [place] Comment on above: Performed By: #### C BC #### [facility] Laboratory [address] [place] [address] Cheryl Srinivasan Troponin I.cardiac [Mass/Vol] SEE BELOW Normal [facility] Comment on above: Result Comment: <0.0 34 ng/ml NEGATIVE 0.034-0.119 INDETERMINATE 0.120 AMI CUT OFF Performed By: #### C BC #### [facility] Laboratory [address] [place] [address] Cheryl Srinivasan Vital Signs Date Time Vital Sign Value Performing Clinician Faci lity 02-23-2024 12:30-0500 Diastolic blood pressure 97 mm[Hg] [facility] 02-23-2024 12:30-0500 Heart rate 57 /min Ej Foster [facility] 02-23-2024 12:30-0500 Respiratory rate 17 /min Ej Foster MD Work Phone: [facility] 02-23-2024 12:30-0500 SaO2% (BldA) [Mass fraction] 96 % Ej Foster [facility] 02-23-2024 12:30-0500 Systolic blood pressure 131 mm[Hg] Ej Foster [facility] 02-23-2024 12:11-0500 Body temperature 96.8 [degF] Ej Foster MD Work Phone: [facility] 02-20-2024 14:13-0500 Body height 181.6 cm Kenia Castillo COVERSTITCH MACHINE OPERATOR Work Phone: [facility] 02-20-2024 14:13-0500 Body mass index (BMI) [Ratio] 43.07 kg/m2 Kenia Castillo COVERSTITCH MACHINE OPERATOR Work Phone: [facility] 02-20-2024 14:13-0500 Body weight 142.07 kg Kenia Castillo COVERSTITCH MACHINE OPERATOR Work Phone: [facility] 02-20-2024 14:13-0500 Diastolic blood pressure 60 mm[Hg] Kenia Castillo COVERSTITCH MACHINE OPERATOR Work Phone: [facility] 02-20-2024 14:13-0500 Heart rate 98 /min Kenia Castillo COVERSTITCH MACHINE OPERATOR Work Phone: [facility] 02-20-2024 14:13-0500 SaO2% (BldA) [Mass fraction] 95 % Kenia Castillo COVERSTITCH MACHINE OPERATOR Work Phone: [facility] 02-20-2024 14:13-0500 Systolic blood pressure 120 mm[Hg] Kenia Castillo COVERSTITCH MACHINE OPERATOR Work Phone: [facility] 02-05-2024 14:54-0500 Body height 182.9 cm [facility] 02-05-2024 14:54-0500 Body mass index (BMI) [Ratio] 41.88 kg/m2 Mth 1 [facility] 02-05-2024 14:54-0500 Body weight 140.1 kg Mth 1 [facility] 02-05-2024 14:54-0500 Diastolic blood pressure 77 mm[Hg] [facility]th 1 [facility] 02-05-2024 14:54-0500 Systolic blood pressure 120 mm[Hg] Mth 1 [facility] 12-26-2023 13:04-0500 Body mass index (BMI) [Ratio] 38.92 kg/m2 Jeannine Evangelista COVERSTITCH MACHINE OPERATOR Work Phone: [facility] 12-26-2023 13:04-0500 Body temperature 97.39 [degF] Jeannine Evangelista COVERSTITCH MACHINE OPERATOR Work Phone: [facility] 12-26-2023 13:04-0500 Body weight 133.81 kg Jeannine Evangelista COVERSTITCH MACHINE OPERATOR Work Phone: [facility] 12-26-2023 13:04-0500 Diastolic blood pressure 74 mm[Hg] Jeannine Moseleyk COVERSTITCH MACHINE OPERATOR Work Phone: [facility] 12-26-2023 13:04-0500 Systolic blood pressure 160 mm[Hg] Jeannine Moseleyk COVERSTITCH MACHINE OPERATOR Work Phone: [facility] 11-15-2023 12:53-0400 Body height 185.4 cm Arianna Lou DPM Work Phone: [facility] 11-15-2023 12:53-0400 Body mass index (BMI) [Ratio] 40.13 kg/m2 Arianna Lou DPM Work Phone: [facility] 11-15-2023 12:53-0400 Body weight 137.98 kg Arianna Lou DPM Work Phone: [facility] 10-11-2023 08:58-0400 Body mass index (BMI) [Ratio] 40.13 kg/m2 Kenia Castillo COVERSTITCH MACHINE OPERATOR Work Phone: [facility] 10-11-2023 08:58-0400 Body temperature 96.69 [degF] Kenia Castillo COVERSTITCH MACHINE OPERATOR Work Phone: [facility] 10-11-2023 08:58-0400 Body weight 137.98 kg Kenia Castillo COVERSTITCH MACHINE OPERATOR Work Phone: [facility] 10-11-2023 08:58-0400 Diastolic blood pressure 86 mm[Hg] Kenia Castillo COVERSTITCH MACHINE OPERATOR Work Phone: [facility] 10-11-2023 08:58-0400 Heart rate 67 /min Kenia Castillo COVERSTITCH MACHINE OPERATOR Work Phone: [facility] 10-11-2023 08:58-0400 SaO2% (BldA) [Mass fraction] 95 % Kenia Castillo COVERSTITCH MACHINE OPERATOR Work Phone: [facility] 08-28-2024 08:58-0400 Systolic blood pressure 132 mm[Hg] Kenia Castillo COVERSTITCH MACHINE OPERATOR Work Phone: [facility] 02-12-2020 09:31-0500 Pulse Oximetry 98 % Ej Foster [facility] [place] 02-12-2020 09:30-0500 BP Diastolic 73 mm[Hg] Ej Kimarcarmen [facility] [place] 02-12-2020 09:30-0500 BP Systolic 135 mm[Hg] [facility] [place] 02-12-2020 09:30-0500 Pulse (Heart Rate) 56 /min [facility] [place] 02-12-2020 09:30-0500 Respiratory Rate 22 /min [facility] [place] 02-12-2020 07:14-0500 BMI (Body Mass Index) 36.89 kg/m2 [facility] [place] 02-12-2020 07:14-0500 Body weight 123.38 kg [facility] [place] 02-12-2020 07:14-0500 Height 182.9 cm Ej [facility] [place] Encounters Encounter Date Encounter Type Care Provider Facility Start: 03-22-2024 End: 03-22-2024 Refill Kenia Castillo COVERSTITCH MACHINE OPERATOR Work Phone: [facility] Comment on above: Primary hypertension (CMS/HCC) Start: 03-04-2024 End: 03-04-2024 ambulatory Ever Guillen MD Facility:[facility] Start: 02-23-2024 End: 02-25-2024 ambulatory EJ FOSTER [facility] Start: 02-23-2024 End: 02-25-2024 Subsequent hospital visit by physician Ej Foster MD Work Phone: [facility] Comment on above: Paroxysmal atrial fi brillation (HCC) (Primary Dx); PAF (paroxysmal atrial fibrillation) (HCC) AF (paroxysmal atria l fibrillation) (HCC) Start: 02-20-2024 End: 02-20-2024 ambulatory KENIA CASTILLO Not Available Start: 02-20-2024 End: 02-20-2024 Bamboo flowsheet Kenia Jonathan COVERSTITCH MACHINE OPERATOR Work Phone: [facility] Start: 02-20-2024 End: 02-20-2024 Bamboo flowsheet Kenia Cordonayush COVERSTITCH MACHINE OPERATOR Work Phone: [facility] Start: 02-20-2024 End: 02-20-2024 Patient encounter procedure Kenia Cordonayush QURESHI Work Phone: [facility] Comment on above: [facility] Dx); Mixed hyperlipidemia [...] Morbid (severe) obesity due to excess calories (CMS/HCC); Colon cancer screening declined; Screening PSA (prostate specific antigen); Benign prostatic hyperplasia with lower urinary tract symptoms, symptom details unspecified; Body mass index (BMI) 40.0-44.9, adult (CMS/HCC) Start: 02-20-2024 End: 02-20-2024 Patient encounter status Kenia Jonathan QURESHI Work Phone: [facility] Start: 02-19-2024 End: 02-19-2024 Edilma Adam MD Work Phone: [facility] Comment on above: Type 2 diabetes magnolia itus with diabetic peripheral angiopathy without gangrene (CMS/HCC) Start: 02-05-2024 End: 02-07-2024 ambulatory [facility] Start: 02-05-2024 End: 02-07-2024 Subsequent hospital visit by physician [facility] Echo 1 [facility] Non-Invasive Cardiology Comment on above: Permanent atrial fib rillation (HCC); Chronic anticoagulation; Essential hypertension; Type 2 diabetes mellitus with diabetic nephropathy, without long-term current use of insulin (HCC); History of COVID-19; Obesity, Class III, BMI 40-49.9 (morbid obesity) Start: 01-31-2024 End: 01-31-2024 Refill Bernie Adam MD Work Phone: [facility] Comment on above: Restless legs syndro me Start: 01-01-2024 End: 01-01-2024 Orders Only Jeannine Evangelista COVERSTITCH MACHINE OPERATOR Work Phone: [facility] Comment on above: Bronchitis (Primary Dx) Start: 12-29-2023 End: 02-12-2024 Orders Only Jeannine Evangelista COVERSTITCH MACHINE OPERATOR Work Phone: [facility] Comment on above: Bronchitis Start: 12-28-2023 End: 12-28-2023 Refill Bernie Adam MD Work Phone: [facility] Comment on above: Bronchitis Bronchitis (Primary Dx) Start: 12-26-2023 End: 12-26-2023 Bamboo flowsheet Jeannine Evangelista COVERSTITCH MACHINE OPERATOR Work Phone: [facility] Start: 12-26-2023 End: 12-26-2023 Bamboo flowsheet Jeannine Evangelista COVERSTITCH MACHINE OPERATOR Work Phone: [facility] Start: 12-26-2023 End: 12-26-2023 Office outpatient visit 15 minutes Jeannine Evangelista COVERSTITCH MACHINE OPERATOR Work Phone: [facility] Comment on above: Acute right otitis m edia (Primary Dx); Bronchitis Start: 12-26-2023 End: 12-26-2023 ambulatory JEANNINE EVANGELISTA Not Available Start: 12-21-2023 End: 12-21-2023 Telephone encounter Bernie Adam MD Work Phone: [facility] Start: 11-15-2023 End: 11-15-2023 Bamboo flowsheet Arianna Lou DPM Work Phone: [facility] Start: 11-15-2023 End: 11-15-2023 Bamboo flowsheet Arianna Lou DPM Work Phone: [facility] Start: 11-15-2023 End: 11-15-2023 Patient encounter procedure Arianna Lou DPM Work Phone: [facility] Comment on above: Dermatophytosis of n ail (Primary Dx); Dystrophic nail; Pain around toenail, right foot; Pain around toenail, left foot Start: 11-15-2023 End: 11-15-2023 ambulatory ARIANNA LOU Not Available Start: 11-13-2023 End: 11-13-2023 ambulatory Ever Guillen MD Facility[facility] Start: 10-23-2023 End: 10-24-2023 Refill Kenia Castillo COVERSTITCH MACHINE OPERATOR Work Phone: [facility] Comment on above: Paroxysmal atrial fi brillation (CMS/HCC) Start: 10-23-2023 End: 10-23-2023 ambulatory [facility] Start: 10-11-2023 End: 10-11-2023 Bamboo flowsheet Kenia Castillo COVERSTITCH MACHINE OPERATOR Work Phone: [facility] Start: 10-11-2023 End: 10-11-2023 Bamboo flowsheet Kenia Castillo COVERSTITCH MACHINE OPERATOR Work Phone: [facility] Start: 10-11-2023 End: 10-11-2023 Office outpatient visit 15 minutes Kenia Castillo COVERSTITCH MACHINE OPERATOR Work Phone: [facility] Comment on above: Dental abscess (Prim ora Dx) Start: 10-11-2023 End: 10-11-2023 ambulatory KENIA CASTILLO Not Available Start: 09-19-2023 End: 09-19-2023 ambulatory KENIA KAMPFER Not Available Start: 09-18-2023 End: 09-18-2023 ambulatory Ever Guillen MD Facility:[facility] Start: 07-24-2023 End: 07-24-2023 ambulatory Ever Guillen MD Facility:[facility] Start: 07-20-2023 End: 07-20-2023 ambulatory ARIANNA LOU Not Available Start: 07-18-2023 End: 07-18-2023 ambulatory KENIA KAMPFER Not Available Start: 06-19-2023 End: 06-19-2023 ambulatory BOBBY APRYL Not Available Start: 06-14-2023 End: 06-30-2023 ambulatory DAVID AWAD JR [facility] Start: 06-09-2023 End: 06-09-2023 ambulatory KENIA CORDONPFITO Not Available Start: 05-24-2023 End: 05-24-2023 ambulatory DAVID HENDRICKSON Not Available Start: 05-23-2023 End: 05-23-2023 ambulatory Marina Redd Facility:[facility] Start: 05-23-2023 End: 05-23-2023 ambulatory COVERSTITCH MACHINE OPERATOR-C Jeannine Evangelista Work Phone: [facility] Work Phone: Start: 05-23-2023 End: 05-23-2023 Patient encounter procedure COVERSTITCH MACHINE OPERATOR-C Jeannine Evangelista Work Phone: [facility] [address] Work Phone: Start: 05-11-2023 End: 05-11-2023 ambulatory COVERSTITCH MACHINE OPERATOR-C Jeannine Evangelista Work Phone: [facility] Work Phone: Start: 05-11-2023 End: 05-11-2023 Patient encounter procedure COVERSTITCH MACHINE OPERATOR-C Jeannine Evangelista Work Phone: [facility] [address] Work Phone: Start: 04-24-2023 [...] be covered. He gave a reference # [id number].) Start: 03-29-2023 Telephone encounter Yuliya lantigua PT [...] so.) Start: 03-28-2023 Telephone encounter Maddie Noa RACECOURSE BARRIER ATTENDANT [facility] Comment on above: re: PT today (Called and noted auth is still pending for PT and in need to cx today; I informed I will keep up-to-date come his next on 03/30.) Start: 03-23-2023 Matthewboo evertheet Yuliya Juan Juan kinney PT Work Phone: [facility] Start: 03-23-2023 Matthewboo evertheet Yuliya Juan Juan ulisesrosio PT Work Phone: [facility] Start: 03-23-2023 End: 03-23-2023 ambulatory Yuliya Romero PT Work Phone: [facility] Comment on above: Left thigh pain (Cassandra andrew Dx); Muscle strain of left thigh, subsequent encounter Start: 03-14-2023 End: 03-14-2023 ambulatory MARINA REDD Not Available Start: 03-06-2023 End: 03-06-2023 ambulatory MARINA Naidu REDD Not Available Start: 03-01-2023 End: 03-01-2023 ambulatory ARIANNA Alfonso TERRIE Not Available Start: 09-23-2020 End: 09-23-2020 Subsequent hospital visit by physician [facility] Echo Room [facility] Echocardiography Comment on above: Persistent atrial fi brillation (HCC); SOB (shortness of breath); Essential hypertension; Other specified diabetes mellitus with other specified complication, 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); Class 2 obesity with body mass index (BMI) of 36.0 to 36.9 in adult, unspecified obesity type, unspecified whether serious comorbidity present; Pain in both lower extremities Start: 03-10-2020 End: 03-12-2020 Subsequent hospital visit by physician [facility] Vascular Imaging Room [facility] Laboratory Comment on above: Controlled type 2 di abetes mellitus with hyperglycemia, without long-term current use of insulin (HCC); Persistent atrial fibrillation (HCC); SOB (shortness of breath); Essential hypertension; Other specified diabetes mellitus with other specified complication, 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); Class 2 obesity with body mass index (BMI) of 36.0 to 36.9 in adult, unspecified obesity type, unspecified whether serious comorbidity present; COVID-19; Fluid retention; Pain in both lower extremities Pain in both lower e xtremities; PVD (peripheral vascular disease) (HCC) Start: 02-12-2020 End: 02-12-2020 Subsequent hospital visit by physician Ej Foster Work Phone: [facility] ICU Comment on above: Arrived Start: 01-22-2020 End: 01-22-2020 Subsequent hospital visit by physician [facility] Echo Room [facility] Echocardiography Comment on above: Persistent atrial fi brillation (HCC); Essential hypertension; SOB (shortness of breath); Fluid retention; Other specified diabetes mellitus with other specified complication, unspecified whether group home insulin use (HCC); Class 2 obesity with body mass index (BMI) of 36.0 to 36.9 in adult, unspecified obesity type, unspecified whether serious comorbidity present Start: 12-16-2019 End: 12-16-2019 Patient encounter procedure [facility] Facility: Start: 12-11-2019 End: 12-11-2019 [facility] Covid Screening Comment on above: Arrived Procedures Date Procedure Procedure Detail Performing Clinician Start: 02-23-2024 End: 02-23-2024 Ecg routine ecg w/least 12 lds w/i&r Ej Foster MD Work Phone: Start: 02-23-2024 Ecg routine ecg w/le ast 12 lds w/i&r Ej Foster MD Work Phone: Start: 02-20-2024 Urine albumin quantitative Kenia Castillo COVERSTITCH MACHINE OPERATOR Work Phone: Start: 02-20-2024 Lipid panel Kenia rush COVERSTITCH MACHINE OPERATOR Work Phone: Start: 02-20-2024 Comprehensive metabo lic panel Kenia Castillo COVERSTITCH MACHINE OPERATOR Work Phone: Start: 02-05-2024 Echo tthrc r-t [...] Ej Foster Work Phone: Start: 01-22-2020 Hemoglobin glycosylated a1c Ej Foster Work Phone: Start: 01-22-2020 Echo tthrc r-t 2d w/wom-mode compl spec&colr d Ej Foster Work Phone: Start: 12-16-2019 End: 12-16-2019 Microscopic examination of blood, culture [facility] Comment on above: Performed By: #### B [id number] #### [facility] Laboratory [address] [place] [address] Cheryl Srinivasan Performed By: #### C BC #### [facility] [address] [place], [place] [id number] Cheryl Srinivasan Plan of Treatment Date Care Activity Detail Author Start: 11-28-2028 DTaP/Tdap/Td vaccine (2 - Td or Tdap) DTaP/Tdap/Td vaccine (2 - Td or Tdap) [facility] Start: 11-28-2028 DTaP/Tdap/Td vaccine (2 - Td) DTaP/Tdap/Td vaccine (2 - Td) [place], [place] Start: 02-19-2025 Medicare Annual Wellness (AWV) Medicare Annual Wellness (AWV) [facility] Start: 02-19-2025 Urine screening for protein Diabetes: Urine Protein Screening [facility] Start: 06-27-2024 Screening for malignant neoplasm of colon Colorectal Cancer Screening [facility] Comment on above: Postponed from 1948 (Patient Refus ed) Start: 06-08-2024 Urine screening for protein Diabetes: Urine Protein Screening [facility] Start: 05-20-2024 Hemoglobin A1c measurement Diabetes: Hemoglobin A1C [facility] Start: 05-20-2024 End: 05-20-2024 Patient encounter procedure 05/20/2024 2:00 PM EDT Office Visit [facility] [address] [place] [address] Kenia Castillo NP [address] [place] [address] [facility] Start: 04-15-2024 End: 04-15-2024 Patient encounter procedure 04/15/2024 2:30 PM EST Procedure Visit [facility] [address] [place] [phone] Arianna Lou DPM [address] [place] [address] [facility] Start: 03-21-2024 End: 03-21-2024 Patient encounter procedure 03/21/2024 2:00 PM EST Office Visit [facility] Part [address] [phone] Shalini Morrow PA-C [address] [place] [address] [phone] week [facility] Part [facility] Comment on above: 4 week Start: 03-19-2024 End: 03-19-2024 Patient encounter procedure 03/19/2024 1:00 PM EST Procedure Visit [facility] [address] [place] [phone] Arianna Lou DPM [address] [place] [address] [facility] Start: 03-04-2024 End: 03-04-2024 Patient encounter procedure 03/04/2024 1:00 PM EST Office Visit [facility] [address] [facility] [address] [place] [phone] Marina Redd PA [address] [facility] [address] [place] [address] [facility] Start: 02-22-2024 End: 02-22-2024 Patient encounter procedure 02/22/2024 3:00 PM EST Office Visit [facility] Part [facility] [address] [place] [phone] Shalini Morrow PA-C [address] [place] [address] 2 week [facility] Comment on above: 2 week Start: 02-22-2024 Annual Wellness Visit (Medicare) Annual Wellness Visit (Medicare) [facility] Start: 02-20-2024 End: 02-20-2024 Patient encounter procedure 02/20/2024 2:00 PM EST Office Visit [facility] [address] [facility] [address] Kenia Castillo NP [address] [facility] [place] [address] [facility] Start: 01-17-2024 End: 01-17-2024 Patient encounter procedure 01/17/2024 2:00 PM EST Office Visit [facility] [address] [place] [facility] [place] [address] [phone] Kenia Castillo NP [address] [facility] [place] [address] [facility] Start: 12-20-2023 Hemoglobin A1c measurement Diabetes: Hemoglobin A1C [facility] Start: 12-03-2023 Medicare Annual Wellness (AWV) Medicare Annual Wellness (AWV) [facility] Start: 11-15-2023 End: 11-15-2023 Patient encounter procedure [facility] Comment on above: Arrived Start: 11-02-2023 Urine screening for protein Diabetes: Urine Protein Screening [facility] Start: 10-15-2023 Influenza vaccination Influenza Vaccine (#1) [facility] Start: 10-11-2023 End: 10-11-2023 Patient encounter procedure 10/11/2023 9:00 AM EDT Office Visit [facility] [address] [facility] [place] [phone] Kenia Castillo NP [address] [place] [address] Arrived [facility] Comment on above: Arrived Start: 06-14-2023 End: 06-14-2023 Patient encounter procedure 06/14/2023 1:30 PM EDT Procedure Visit [facility] [address] [place] [phone] Arianna Lou, DPM [address] [place] [address] [facility] Start: 06-09-2023 End: 06-09-2023 Patient encounter procedure 06/09/2023 1:00 PM EDT Office Visit [facility] [address] [place] [phone] Kenia Castillo NP [address] [facility] [place] [address] [facility] Start: 05-04-2023 GFR test (Diabetes, CKD 3-4, OR last GFR 15-59) GFR test (Diabetes, CKD 3-4, OR last GFR 15-59) [facility] Start: 04-17-2023 End: 04-17-2023 Patient encounter procedure 04/17/2023 1:30 PM EST Office Visit [facility] [address] [facility] [address] [place] [address] Marina Redd, PA [address] [facility] [address] [place] [address] [facility] Start: 04-13-2023 End: 04-13-2023 ambulatory 04/13/2023 1:00 PM EST Treatment [facility] [address] [facility] [address] [place] [address] Yuliya Romero, PT [address] [facility] [address] [place] [address] [facility] Start: 04-11-2023 End: 04-11-2023 ambulatory 04/11/2023 1:00 PM EST Treatment [facility] [address] [place] [address] [place] [address] Maddie Latham, RACECOURSE BARRIER ATTENDANT [facility] Start: 04-06-2023 End: 04-06-2023 ambulatory 04/06/2023 2:00 PM EST Treatment [facility] [address] [place] [address] [place] [address] Maddie Latham, RACECOURSE BARRIER ATTENDANT [facility] Start: 04-05-2023 End: 04-05-2023 ambulatory 04/05/2023 1:00 PM EST Treatment [facility] [address] [place] [address] [place] [address] Valerie Argueta, PT [facility] Start: 04-04-2023 End: 04-04-2023 ambulatory 04/04/2023 1:00 PM EST Treatment [facility] [address] [place] [address] [place] [address] Maddie Latham, RACECOURSE BARRIER ATTENDANT [facility] Start: 03-30-2023 End: 03-30-2023 ambulatory 03/30/2023 2:00 PM EST Treatment [facility] [address] [place] [address] [place] [address] Maddie Latham, RACECOURSE BARRIER ATTENDANT [facility] Start: 03-28-2023 End: 03-28-2023 ambulatory 03/28/2023 1:30 PM EST Treatment [facility] [address] [place] [place] [address] Maddie Latham, RACECOURSE BARRIER ATTENDANT [facility] Start: 03-23-2023 End: 03-23-2023 ambulatory 03/23/2023 1:00 PM EST Evaluation [facility] [address] [place] [address] [place] [address] Yuliya Romero, PT [address] [place] [address] Left thigh pain; Muscle strain of left thigh, subsequent encounter [facility] Comment on above: Left thigh pain; Muscle strain of left thigh, subsequent encounter Start: 01-31-2023 Hemoglobin A1c measurement Diabetes: Hemoglobin A1C [facility] Start: 01-09-2023 Annual Wellness Visit (Medicare) Annual Wellness Visit (Medicare) [facility] Start: 12-02-2022 Glaucoma screening Diabetes: Retinopathy Screening [facility] Start: 09-30-2021 End: 09-30-2021 Patient encounter procedure 09/30/2021 Office Visit Cardiology Ej Foster MD [address] [place] [address] [facility] Start: 03-10-2021 Creatinine measurement Creatinine monitoring [facility] [employer] [place] Start: 03-10-2021 HbA1c (Bld) [Mass fraction] A1C test (Diabetic or Prediabetic) [place], [place] Start: 03-10-2021 Hemoglobin A1c measurement A1C test (Diabetic or Prediabetic) [facility] Start: 03-10-2021 Lipid panel [facility] Start: 03-10-2021 Potassium monitoring Potassium monitoring [place], [place] Start: 01-21-2021 Creatinine measurement Creatinine monitoring [facility] [place] Start: 01-21-2021 HbA1c (Bld) [Mass fraction] A1C test (Diabetic or Prediabetic) [place] Start: 01-21-2021 Potassium monitoring Potassium monitoring [place] Start: 10-14-2020 Influenza vaccination Flu vaccine (#1) [facility] Work Phone: Start: 09-16-2020 End: 09-16-2020 Office Visit 09/16/2020 Office Visit Cardiology Ej Foster MD [address] [place] [phone] [facility] Start: 03-10-2020 End: 03-10-2020 Office Visit 03/10/2020 Office Visit Cardiology Ej Foster MD [address] [place] [address] [phone] [facility] Start: 02-21-2020 End: 02-21-2020 Office Visit 02/21/2020 Office Visit Cardiology Ej Foster MD [address] [place] [address] [facility] Start: 01-30-2020 End: 01-30-2020 Office Visit 01/30/2020 Office Visit Cardiology Ej Foster MD [address] [place] [phone] [facility] Start: 12-11-2019 Annual Wellness Visit (AWV) Annual Wellness Visit (AWV) [place] Start: 10-15-2019 Influenza vaccination Flu vaccine (#1) [place] Start: 2013 Pneumococcal 65+ years Vaccine (1 of 1 - PPSV23) Pneumococcal 65+ years Vaccine (1 of 1 - PPSV23) [place] Start: 2013 Pneumococcal 65+ years Vaccine (2 of 2 - PPSV23) Pneumococcal 65+ years Vaccine (2 of 2 - PPSV23) [place] Start: 07-17-2012 Shingles Vaccine (2 of 3) Shingles Vaccine (2 of 3) [facility] Start: 1998 Screening for malignant neoplasm of colon Colon cancer screen colonoscopy [place], [place] Start: 1998 Shingles Vaccine (1 of 2) Shingles Vaccine (1 of 2) [place] Start: 1993 Screening for malignant neoplasm of colon [facility] Start: 1988 Lipid panel Lipid screen [place] Start: 10-04-1967 DTaP/Tdap/Td vaccine (1 - Tdap) DTaP/Tdap/Td vaccine (1 - Tdap) [place] Start: 1966 Diabetic microalbuminuria test Diabetic microalbuminuria test [place] Start: 1966 Glaucoma screening Diabetic retinal exam [facility] Start: 1966 Hepatitis C screening Hepatitis C screen [facility] Start: 1966 Urine screening for protein Diabetic Alb to Cr ratio (uACR) test [facility] Start: 1960 Depression Screen Depression Screen [facility] Start: 1958 Diabetic foot examination Diabetic foot exam [facility] Start: 1958 Diabetic retinal exam Diabetic retinal exam [place], [place] Start: 1958 Lipid panel Lipid screen [place] Start: 1948 Creatinine measurement Creatinine monitoring [place], [place] Start: 1948 Hepatitis C screening Hepatitis C screen [place], [place] Start: 1948 Potassium monitoring Potassium monitoring [place], [place] Start: 1948 Screening for malignant neoplasm of colon [facility] End: 02-23-2024 Cardioversion external [facility] Comment on above: 1 Occurrences starting 02/23/2024 until 02/23/2024 End: 02-12-2020 Catheterization and angiography procedure details panel Diagnostic Cardiac [employer] Builder Procedure Cardiac Cath Routine One Time for 1 Occurrences starting 02/12/2020 until 02/12/2020 [place] Comment on above: One Time for 1 Occurrences starting 01/15 until 02/12/2020 Continuous pulse oximetry Pulse oximetry, continuous Respiratory Care Routine Every 4hr until discontinued starting 02/12/2020 [place] Comment on above: Every 4hr until discontinued starting End: 12-11-2019 Covid-19 Ambulatory Covid-19 Ambulatory Lab Routine Once for 1 Occurrences starting 12/11/2019 until 12/11/2019 [place] Comment on above: Once for 1 Occurrences starting 12/11/19 20 until 12/11/2019 Covid-19 Ambulatory Covid-19 Amb ulatory Lab Routine 12/11/2019 2:27 PM EDT [place] EKG 12 Lead EKG 12 Lead ECG Routine 02/12/2020 8:26 AM EST [place] End: 02-12-2020 End Tidal CO2 Continuous End Tidal CO2 Continuous Respiratory Care Routine Continuous until discontinued starting 02/12/2020 [employer] [facility] Comment on above: Continuous until discontinued starting 1 End: 02-23-2024 Extended cardiac holter monitor (3 day-14 day) [employer] Comment on above: One Time for 1 Occurrences starting 02/13 until 02/23/2024 End: 02-05-2024 Extended cardiac holter monitor (3 days-14 day) [facility] [employer] Comment on above: 1 Occurrences starting 02/05/2024 until 02/05/2024 End: 02-26-2024 Extended cardiac holter monitor (3 days-14 day) [facility] [employer] Comment on above: 1 Occurrences starting 02/26/2024 until 02/26/2024 End: 03-10-2020 HbA1c (Bld) [Mass fraction] Hemoglobin A1C Lab Routine Controlled type 2 diabetes mellitus with hyperglycemia, without long-term current use of insulin ([facility]) 1 Occurrences starting 03/10/2020 until 03/10/2020 [employer] Comment on above: 1 Occurrences starting 03/10/2020 until 03/10/2020 HbA1c (Bld) [Mass fraction] Hemoglobin A1C Lab Routine Controlled type 2 diabetes mellitus with hyperglycemia, without long-term current use of insulin ([facility]) 03/10/2020 12:35 PM MJ [employer] End: 02-23-2024 INITIATE PACU OXYGEN THERAPY PROTOCOL Initiate PACU Oxygen Therapy Protocol Respiratory Care Routine Continuous until discontinued starting 02/23/2024 [facility] [employer] Comment on above: Continuous until discontinued starting 0 02/23/2024 Oxygen therapy [[facility] Data Set] Initiate Oxygen Therapy Protocol Respiratory Care Routine Daily until discontinued starting 02/12/2020 [employer] Comment on above: Daily until discontinued starting 2019 End: 03-10-2020 VL LOWER EXTREMITY ARTERIAL SEGMENTAL PRESSURES W PPG VL LOWER EXTREMITY ARTERIAL SEGMENTAL PRESSURES W PPG Imaging STAT Pain in both lower extremities PVD (peripheral vascular disease) ([facility]) 1 Occurrences starting 03/10/2020 until 03/10/2020 [facility] Comment on above: 1 Occurrences starting 03/10/2020 until 03/10/2020 VL LOWER EXTREMITY ARTERIAL SEGMENTAL PRESSURES W PPG VL LOWER EXTREMITY ARTERIAL SEGMENTAL PRESSURES W PPG Imaging STAT Pain in both lower extremities PVD (peripheral vascular disease) ([facility]) 03/10/2020 1:24 PM [place], [place] Immunizations Immunization Date Immunization Notes Care Provider [facility] bencoreen 11-21-2023 influenza, high dose seasonal, preservative-free Kenia Castillo COVERSTITCH MACHINE OPERATOR Work Phone: [facility] 11-21-2023 Pneumococcal Conjuga te PCV 20 Kenia Jonathan COVERSTITCH MACHINE OPERATOR Work Phone: [facility] 11-21-2023 SARS-COV-2 (COVID-19 ) vaccine, mRNA, spike protein, LNP, PF, 50 mcg/0.5 mL Kenia Jonathan COVERSTITCH MACHINE OPERATOR Work Phone: [facility] 12-05-2022 RSV, recombinant, pr otein subunit RSVpreF, adjuvant reconstitu, 120mcg/0.5mL, PF (Arexvy) Kenia Jonathan COVERSTITCH MACHINE OPERATOR Work Phone: [facility] 12-02-2022 pneumococcal polysaccharide vaccine, 23 valent Yuliya Romero PT Work Phone: [facility] 11-01-2022 influenza, high dose seasonal, preservative-free Yuliya Romero PT Work Phone: [facility] 11-01-2022 influenza virus vacc ine, unspecified formulation Kenia Cordonayush COVERSTITCH MACHINE OPERATOR Work Phone: [facility] 11-01-2021 Influenza, Seasonal, Quadrivalent, Adjuvanted Yuliya Romero PT Work Phone: [facility] 11-01-2021 SARS-COV-2 (COVID-19 ) vaccine, mRNA, spike protein, LNP, bivalent, preservative free, 30 mcg/0.3 mL dose, mauro-sucrose formulation Yuliya Romero PT Work Phone: [facility] 11-01-2021 SARS-CoV-2, Unspecified Jamie Romero PT Work Phone: [facility] 10-30-2021 Influenza, High-dose Seasonal, Quadrivalent, Preservative Free Yuliya Maryton PT Work Phone: [facility] 11-12-2020 Influenza, High-dose Seasonal, Quadrivalent, Preservative Free Yuliya Blackston PT Work Phone: [facility] 11-11-2020 Influenza, High-dose Seasonal, Quadrivalent, Preservative Free Yuliya Maryton PT Work Phone: [facility] 11-11-2020 Pfizer Purple Cap SARS-CoV-2 Vaccination Yuliyamiguel Romero PT Work Phone: [facility] 04-12-2020 Pfizer Purple Cap SARS-CoV-2 Vaccination Yuliya Romero PT Work Phone: [facility] 03-19-2020 Pfizer Purple Cap SARS-CoV-2 Vaccination Yuliyamiguel Romero PT Work Phone: [facility] 11-28-2019 influenza, injectabl e, quadrivalent, preservative free Yuliya Trisha PT Work Phone: [facility] 11-28-2018 influenza, injectabl e, quadrivalent, preservative free Yuliya Trisha PT Work Phone: [facility] 11-28-2018 tetanus toxoid, redu hiral diphtheria toxoid, and acellular pertussis vaccine, adsorbed Yuliya Romero PT Work Phone: [facility] 11-27-2018 influenza, high dose seasonal, preservative-free Yuliya Blackston PT Work Phone: [facility] 11-27-2017 influenza, high dose seasonal, preservative-free Yuliya Blackston PT Work Phone: [facility] 11-27-2017 Influenza, High-dose Seasonal, Quadrivalent, Preservative Free Yuliya Blackston PT Work Phone: [facility] 11-22-2016 influenza, injectabl e, quadrivalent, contains preservative Yuliya Blackston PT Work Phone: [facility] 11-22-2016 influenza, injectabl e, quadrivalent, preservative free Yuliya Romero PT Work Phone: [facility] 07-29-2015 pneumococcal conjuga te vaccine, 13 valent Yuliya Romero PT Work Phone: [facility] 01-21-2015 influenza, seasonal, injectable, preservative free Yuliya Romero PT Work Phone: [facility] 12-11-2013 influenza, injectabl e, quadrivalent, preservative free Yuliya Romero PT Work Phone: [facility] 03-13-2013 influenza, seasonal, injectable Yuliya Maryton PT Work Phone: [facility] 03-13-2013 influenza, seasonal, injectable, preservative free Yuliya Romero PT Work Phone: [facility] 03-13-2013 pneumococcal polysaccharide vaccine, 23 valent Yuliya Romero PT Work Phone: [facility] 05-22-2012 zoster vaccine, live Yuliya Romero PT Work Phone: [facility] 02-02-2012 influenza, seasonal, injectable Yuliya Romero PT Work Phone: [facility] Payers Date Payer Category Payer Self-pay 2023 Medicare [id number] 2023 Medicare (Managed Care) [facility] MEDIC[facility] Member Subscriber Plan / Payer (Effective 2023-Present) Name: Zaina Winters Relation to Subscriber: Self Name: Zaina Winters Payer ID: Not on file Group ID: Not on file Type: Not on file Address: [place] [id number] 2023 Private Health Insurance [employer] [id number] 2023 Medicare [id number] 2023 Unknown [id number] 1.13.693.2. [id number] 1959 Medicare [id number]. [id number] 1959 Unknown [id number] 1948 Unknown [id number] 2.16.840.1.488588.3.579.2. 593 1948 Unknown [id number] 2.16.840.1.131635.3.579.2. 1286 1948 Unknown [id number] 2.16.840.1.791857.3.579.2. 1286 1948 Unknown [id number] 2.16.840.1.312306.3.579.2. 1286 1948 Unknown [id number] 2.16.840.1.763198.3.579.2. 1259 1948 Unknown [id number] 2.16.840.1.100097.3.579.2. 1259 1948 Unknown [id number] 2.16.840.1.822918.3.579.2. 1259 1948 Unknown [id number] 2.16.840.1.828954.3.579.2. 125 1948 Unknown [id number] 2.16.840.1.731976.3.579.2. 125 1948 Unknown [id number] 2.16.840.1.189467.3.579.2. 125 1948 Unknown [id number] 2.16.840.1.681509.3.579.2. 125 1948 Unknown [id number] 2.16.840.1.496795.3.579.2. 125 1948 Unknown [id number] 2.16.840.1.309598.3.579.2. 1258 1948 Unknown [id number] 2.16.840.1.475322.3.579.2. 125 1948 Unknown [id number] 2.16.840.1.674460.3.579.2. 125 1948 Unknown [id number] 2.16.840.1.520924.3.579.2. 1259 1948 Unknown [id number] 2.16.840.1.860514.3.579.2. 125 1948 Unknown [id number] 2.16.840.1.134874.3.579.2. 125 1948 Unknown [id number] 2.16.840.1.996430.3.579.2. 125 1948 Unknown [id number] 2.16.840.1.324702.3.579.2. 125 1948 Unknown [id number] 2.16.840.1.165989.3.579.2. 125 1948 Unknown [id number] 2.16.840.1.139646.3.579.2. 1259 1948 Unknown [id number] 2.16.840.1.484772.3.579.2. 1259 1948 Unknown [id number] 2.16.840.1.636035.3.579.2. 1259 1948 Unknown [id number] 2.16.840.1.170456.3.579.2. 1259 1948 Unknown [id number] 2.16.840.1.784209.3.579.2. 1259 1948 Unknown [id number] 2.16.840.1.794479.3.579.2. 1259 1948 Unknown [id number] 2.16.840.1.374896.3.579.2. 1259 1948 Unknown [id number] 2.16840.1.169768.3.579.2. 173 1948 Unknown [id number] 2.16.840.1.480724.3.579.2. 173 1948 Unknown [id number] 2.16.840.1.847138.3.579.2. 173 1948 Unknown [id number] 2.16.840.1.015485.3.579.2. 173 1948 Unknown [id number] 2.16840.1.851580.3.579.2. 196 1948 Unknown [id number] 2.16.840.1.432705.3.579.2. 196 1948 Unknown [id number] 2.16.840.1.858481.3.579.2. 196 1948 Unknown [id number] 2.16.840.1.797607.3.579.2. 196 1948 Unknown [id number] 2.16.840.1.920191.3.579.2. 196 Unknown [id number] 2.16840.1.565940.3.579.2. 531 Social History Date Type Detail Facility Tobacco smoking stat us TNIS Unknown if ever smoked [place], [place] Start: 1950 Sex Assigned At Not on file [place], [place] Start: 01-22-2020 End: 08-02-2022 Tobacco smoking status NHIS Never smoker [place], [place] Start: 01-22-2020 End: 08-02-2022 Tobacco use and exposure Never used [place], [place] Start: 03-10-2020 End: 02-20-2024 Alcohol intake Current drinker of alcohol (finding) [place] Start: 02-12-2020 Alcohol Comment having had sin ce December [place], [place] Exposure to SARS-CoV -2 (event) Not sure [place] Start: 09-16-2020 End: 12-02-2022 Alcohol intake [facility] Work Phone: Start: 12-02-2022 End: 03-14-2023 Tobacco use panel [facility] Start: 10-25-2022 Alcohol Comment drinks alcohol 2-3 times a week [facility] Start: 1950 Sex Assigned At Male [facility] How often to you hav e a [...] 02-23-2024 Alcohol Comment occasional [place] [facility] Clinical Notes 09-23-2020 to 02-23-2024 Jannet Martinez RN - 02/23/2024 12:42 PM Jannet Gardner RN - 02/23/2024 12:41 PM Ej Elmore MD - 02/23/2024 12:00 PM Chandrakant Castillo NP - 02/20/2024 2:00 PM EST Note Date [...] included. Mr. Winters Date of : 1950 [id number] Procedure: Cardioversion Pre-operative Diagnosis: Persistent atrial fibrillation, symptomatic Post-operative Diagnosis: Successful cardioversion to NSR with 300J biphasic Anesthesia: General Anesthesia. Provided by our anesthesia team. Procedure: The procedure was done in the [facility]. Benefits, risks and alternatives were explained to the patient and he agreed to proceed. Informed consent obtained. A separate informed consent obtained by our anesthesia team. Timeout obtained by the [employer] [facility] nurse. The defibrillator pads were attached in [...] other cardiac medications. Ej Foster MD, MS, F.A.C.C. [facility], [place] [address] , documented in this encounter [facility] 02-23-2024 Hospital Discharge instructions Jannet Martinez [...] doctor prescribes. Do not take any vitamins, ocjj-yei-efrltot medicines, or herbal products without talking to [...] or uneven pulse. After calling 911, the lathe setup operator may tell you to chew 1 [...] Where can you learn more? Go to [email or web address] and sign in to your [email or web address] account. Enter A617 in the Search Health Information box to learn more about Electrical Cardioversion: What to Expect at Home. If you do not have an account, please click on the Sign Up Now link. [id number] [employer]. Care instructions adapted under license by [employer]. This care instruction is for use with your licensed healthcare professional. If you have questions about a medical condition or this instruction, always ask your healthcare professional. [employer] disclaims any warranty or liability for your use of this information. Content Version: 10.6.606740; Current as of: April 04, 2014 documented in this encounter [facility] 02-20-2024 History of Present illness Narrative Images from the original note were not included. Zaina Winters is a 73 y.o. male presents with chief complaint of Medicare Annual Wellness Visit Subsequent HPI: HPI Getting an ablation on , having a procedure done by pain management soon sees pain management at [place]. Send results to Dr. Mata at [facility] Has an appointment with phil tracey in March in [place]. Not using cpap tried different mask couldn't [...] Yes Cognitive Screening Three Word Registration: Leader, Season, Table Clock Drawing: Normal Clock - 2 [...] Do not crush, chew, or split. HYDROcodone-acetaminophen (Macon) 5-325 MG tablet 1 tablet, 2 times [...] independence. Living will and durable power of corporate development associate reviewed. Updated patient problem list and reviewed [...] after eating. [employer] HOB. Paroxysmal atrial fibrillation ([facility]) -On eliquis, scheduled for ablation later this week POOL (obstructive sleep apnea) - Ambulatory referral to Sleep Medicine; Future -The patient was counseled on the risks of stroke, Ml, and sudden with POOL, along with the need for compliance with CPAP/BiPAP treatment. Will refer to Sleep Medicine for further evaluation. Peripheral edema -Encouraged compression stockings to BLE PVD (peripheral vascular disease) ([facility]) -Encouraged compression stockings to BLE Lumbar radiculopathy -Followed by pain management Restless legs syndrome -Stable Type 2 diabetes mellitus with diabetic peripheral angiopathy without gangrene, without long-term current use of insulin ([facility]) Insomnia, unspecified type -Stable Morbid (severe) obesity due to excess calories ([facility]) Colon cancer screening declined Screening PSA (prostate specific antigen) - PSA; Future Benign prostatic hyperplasia with lower urinary tract symptoms, symptom details unspecified -Stable Body mass index (BMI) 40.0-44.9, adult ([facility]) documented in this encounter [facility] 01-01-2024 Telephone encounter Note Sent prescription. [facility] 01-01-2024 Miscellaneous Notes Sent prescription. Informed patient that [facility] and he states I told her those don't work for me He wants you to send something stronger. [facility] Addended by: RHONA HERRERA on: 12/29/2023 10:45 AM Modules accepted: Orders [facility] [place]. I believe the tessalon perles were sent. Patient was seen on 12/25 and has been taking otc cough syrup and it is not helping at all. He is requesting a prescription for cough syrup sent to [facility] in [place]. Ty documented in this encounter [facility] 01-01-2024 History of Present illness Narrative Prescription sent documented in this encounter [facility] 12-29-2023 Telephone encounter Note I sent in a few days of steroids to help with cough [facility] 12-29-2023 Miscellaneous Notes I sent in a few days of steroids to help with cough Can something else be sent in for pt to help with cough other than tesslon perles? Please contact pt with response. [facility] [place] documented in this encounter [facility] 12-29-2023 Telephone encounter Note Can something else be sent in for pt to help with cough other than tesslon perles? Please contact pt with response. [facility] [place] [facility] 12-29-2023 Telephone encounter Note Informed patient that [facility] and he states I told her those don't work for me He wants you to send something stronger. [facility] 12-29-2023 Telephone encounter Note [facility] 12-29-2023 History of Present illness Narrative Prescription sent documented in this encounter [facility] 12-29-2023 Note Addended by: Mirna HERRERA on: 12/29/2023 10:45 AM Modules accepted: Orders [facility] 12-29-2023 Telephone encounter Note [facility] res[facility] to [facility] in [place]. I believe the tessalon perles were sent. [facility] 12-28-2023 History of Present illness Narrative Prescription sent documented in this encounter [facility] 12-28-2023 Telephone encounter Note Patient was seen on 12/25 and has been taking otc cough syrup and it is not helping at all. He is requesting a prescription for cough syrup sent to [facility] in [place]. Ty [facility] 12-26-2023 History of Present illness Narrative Images from the original note were not included. Zaina Wniters is a 73 y.o. male presents with [...] mg, Oral, 3 times daily PRN HYDROcodone-acetaminophen (Macon) 5-325 MG tablet 1 tablet, Oral, 2 [...] if symptoms worsen documented in this encounter [facility] 12-21-2023 Telephone encounter Note Quentin called - was in for ear infection etc last week . Now he hs it - he's asking if you would just send in what you gave her . [facility] 12-21-2023 Miscellaneous Notes Quentin called - was in for ear infection etc last week . Now he hs it - he's asking if you would just send in what you gave her . documented in this encounter [facility] 11-15-2023 History of Present illness Narrative Images [...] day as needed, Disp: , Rfl: HYDROcodone-acetaminophen (Macon) 5-325 MG tablet, Take 1 tablet by [...] Arianna Lou DPM documented in this encounter [facility] 11-15-2023 Instructions Arianna Lou DPM - 11/15/2023 1:00 PM EDT As noted documented in this encounter [facility] 10-23-2023 Telephone encounter Note Patient is calling for refills. He is asking for 90 day supply sent to [facility]alin [facility] 10-23-2023 Miscellaneous Notes Patient is calling for refills. He is asking for 90 day supply sent to [facility] documented in this encounter [facility] 10-11-2023 History of Present illness Narrative Images from the original note were not included. Zaina Winters is a 73 y.o. male presents with chief complaint of Establish Care HPI: Patient fell and hit his face 8 months ago and banged his teeth. 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 documented in this encounter [facility] 03-30-2023 Telephone encounter Note 04/05 @ 1:00 pm . [facility] 03-30-2023 Miscellaneous Notes 04/05 @ 1:00 pm . So that reference # does nothing? His eval was 2/8, and is it noted per [facility] to continue, auth is needed? Would it be ok to schedule? documented in this encounter [facility] 03-30-2023 Telephone encounter Note So that reference # does nothing? His eval was 2/8, and is it noted per [facility] to continue, auth is needed? [facility] 03-30-2023 Telephone encounter Note Would it be ok to schedule? [facility] 03-29-2023 Telephone encounter Note Pt cx PT out. [facility] 03-29-2023 Miscellaneous Notes Pt cx PT out. documented in this encounter [facility] 09-20-2021 Note [id number]#1.00[facility] 09-20-2021 Note [id number]#1.00[facility] 09-18-2021 Note Education Materials POST OPERATIVE TOTAL [...] follow up in office with physician assistant clinical director Justo Redd as scheduled #9 [facility] [...] to the nearest hospital's emergency services department. [facility] 09-18-2021 Note [facility] Clinical Discharge Summary PERSON INFORMATION Name ZAINA WINTERS Age 70 Years 1950 Sex MALE Language Estonian PCP Tonja ERNANDEZ, Jeannine Alfonso Marital Status Med Service Observation Acct# Arrival 09/17/2021 08:03:00 Visit Reason SURGERY-RIGHT TOTAL KNEE (GABRIELA) Acuity LOS 000 26:09 Address: [address] [place] [id number] Comment: PROVIDER INFORMATION VITALS INFORMATION Vital Sign [...] range between ( 1.3 and 2.9 ) [place] Abs#: 1.3 x103/mcL -- Normal range between ( 0.0 and 0.8 ) Auto Baso %: 0.0 % -- Normal range between ( 0.2 and 2.0 ) Auto [place] %: 9 % -- Normal range between [...] Follow up: With: Address: When: Marina Redd [address] [place] [address], [address] [place] [address] Business (1) 10/01/2021 11:00 AM DIAGNOSIS Acute pain of right knee Comment: PHYS DOC NOTES [facility] 03-04-2021 Note [id number]#1.00[facility] 03-04-2021 Note [id number]#1.00[facility] 03-04-2021 Note [id number]#1.00[facility] 03-03-2021 Note Education Materials POST OPERATIVE TOTAL [...] to the nearest hospital's emergency services department. [facility] 03-03-2021 Note [facility] Clinical Discharge Summary PERSON INFORMATION Name ZAINA WINTERS Age 70 Years 1950 Sex MALE Language Estonian PCP Tonja ERNANDEZ, Jeannine Alfonso Marital Status Med Service Observation Acct# Arrival 03/02/2021 05:52:00 Visit Reason SURGERY - LEFT TOTAL KNEE POSSIBLE STEMS AND AUGS - NEX GEN TIBIA Acuity LOS 000 26:57 Address: [address] [place] [id number] Comment: PROVIDER INFORMATION VITALS INFORMATION Vital Sign [...] range between ( 1.3 and 2.9 ) [place] Abs#: 1.9 x103/mcL -- Normal range between ( 0.0 and 0.8 ) Auto Baso %: 0.0 % -- Normal range between ( 0.2 and 2.0 ) Auto [place] %: 10 % -- Normal range between [...] range between ( 74 and 118 ) [facility] Order 03/03/2021 4:47 AM Tube Collected: [...] Follow up: With: Address: When: Marina Redd [address] [place] [address], [facility] [address] [place] [address] Business (1) 03/15/2021 10:30 AM With: Address: When: Jeannine Evangelista [address] [place] [address] Business (1) DIAGNOSIS Aftercare following left knee joint rep (more content not included)... [facility] 09-23-2020 History of Present illness Narrative Instructed on policies and procedures. 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) Class 2 obesity with body mass index (BMI) of 36.0 to 36.9 in adult, unspecified obesity type, unspecified whether serious comorbidity present Pain in both lower extremities documented in this encounter [facility] Phone: evaluation note* Diagnosis Left thigh pain- Primary Pain in soft tissues of limb Muscle strain of left thigh, subsequent encounter documented in this encounter [facility] HealthcareEvaluation noteNo assessment information availableWright[facility] Work Phone: Evaluation note* Diagnosis Dermatophytosis of nail- Primary Dystrophic nail Other specified disease of nail Pain around toenail, right foot Pain around toenail, left foot documented in this encounter [facility] Healthcare[facility] note* Diagnosis Acute right otitis media- Primary Bronchitis Bronchitis, not specified as acute or chronic documented in this encounter [facility] Healthcare[facility] note* Diagnosis Bronchitis Bronchitis, not specified as acute or chronic documented in this encounter [facility] Healthcare[facility] note* Diagnosis Bronchitis- Primary Bronchitis, not specified as acute or chronic documented in this encounter [facility] Healthcare[facility] note* Diagnosis Bronchitis Bronchitis, not specified as acute or chronic documented in this encounter [facility] note* Diagnosis Bronchitis- Primary Bronchitis, not specified as acute or chronic documented in this encounter [facility] note* Diagnosis Dental abscess- Primary Periapical abscess without sinus documented in this encounter [facility] note* Diagnosis Restless legs syndrome Restless legs syndrome (RLS) documented in this encounter [facility] HealthcareEvaluation note* Diagnosis Paroxysmal atrial fibrillation (CMS/HCC) Atrial fibrillation documented in this encounter [facility] Healthcare[facility] note* Diagnosis Permanent atrial fibrillation (HCC) Atrial fibrillation Chronic anticoagulation Encounter for long-term (current) use of anticoagulants Essential hypertension Unspecified essential hypertension Type 2 diabetes mellitus with diabetic nephropathy, without long-term current use of insulin (HCC) History of COVID-19 Obesity, Class III, BMI 40-49.9 (morbid obesity) Morbid obesity documented in this encounter [facility]* Diagnosis Permanent atrial fibrillation (HCC) Atrial fibrillation Chronic anticoagulation Encounter for long-term (current) use of anticoagulants Essential hypertension Unspecified essential hypertension Type 2 diabetes mellitus with diabetic nephropathy, without long-term current use of insulin (HCC) History of COVID-19 Obesity, Class III, BMI 40-49.9 (morbid obesity) Morbid obesity documented in this encounter [facility] note* Diagnosis Acute cough- Primary [facility] Diagnosis Type 2 diabetes mellitus with diabetic peripheral angiopathy without gangrene (CMS/HCC) 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 Gastroesophageal reflux disease without esophagitis Esophageal reflux Paroxysmal atrial fibrillation (CMS/HCC) Atrial fibrillation POOL (obstructive sleep apnea) Obstructive sleep apnea (adult) (pediatric) Peripheral edema Edema PVD (peripheral vascular disease) (CMS/HCC) Unspecified peripheral vascular disease Lumbar radiculopathy Thoracic or lumbosacral neuritis or radiculitis, unspecified Restless legs syndrome Restless legs syndrome (RLS) GERD without esophagitis Esophageal reflux Type 2 diabetes mellitus with diabetic peripheral angiopathy without gangrene, without long-term current use of insulin (CMS/HCC) Insomnia, unspecified type Morbid (severe) obesity due to excess calories (CMS/HCC) Colon cancer screening declined Screening PSA (prostate specific antigen) Special screening for malignant neoplasm of prostate Benign prostatic hyperplasia with lower urinary tract symptoms, symptom details unspecified Body mass index (BMI) 40.0-44.9, adult (CMS/[facility]) [facility] Diagnosis AF (paroxysmal atrial fibrillation) (HCC) Atrial fibrillation documented in this encounter [facility] note* Diagnosis Primary hypertension (CMS/HCC) Unspecified essential hypertension [facility] N[facility]ative* Consultation (Routine) - Pending Review Specialty Diagnoses / Procedures Referred By Jamal hwang Referred To Contact Physical Therapy Diagnoses Left thigh pain Muscle strain of left thigh, subsequent encounter Procedures MT OFFICE/OUTPATIENT NEW HIGH MDM 60 MINUTES Marina Redd, PA [address] [facility] [address] [place] [address] Yuliya Romero, PT 112 [facility] [address] [place] [address] Referral ID Status Reason Start Date Expiration Date Visits Requested Visits Authorized [id number] Pending Review Consult and Treat 03/23/2023 03/09/2024 [...] mellitus with other specified complication, unspecified whether group home insulin use (HCC) Class 2 obesity with body mass index (BMI) of 36.0 to 36.9 in adult, unspecified obesity type, unspecified whether serious comorbidity present Procedures ECHO Complete 2D W Doppler W Color Ej Foster MD [address] [place] [phone] [facility] Echo [address] [place] [id number] Status Reason Specialty Diagnoses / Procedures Referre d By Contact Referred To Contact Closed Radiology Diagnoses Pain in both lower extremities PVD (peripheral vascular disease) (HCC) Procedures VL LOWER EXTREMITY ARTERIAL SEGMENTAL PRESSURES W PPG Ej Foster MD [address] [place] [address] [place] [address] Status Reason Specialty Diagnoses / Procedures Referre d By Contact Referred To Contact Closed Cardiology Diagnoses Persistent atrial fibrillation (HCC) SOB (shortness of breath) Essential hypertension Other specified diabetes mellitus with other specified complication, unspecified whether group home insulin use (HCC) Class 2 obesity with body mass index (BMI) of 36.0 to 36.9 in adult, unspecified obesity type, unspecified whether serious comorbidity present Pain in both lower extremities Procedures Echo 2D w doppler w color complete Ej Foster MD [address] [place] [address] [place] [address] Specialty Diagnoses / Procedures Referred By Contac t Referred To Contact Diagnoses Permanent atrial fibrillation (HCC) Chronic anticoagulation Essential hypertension Type 2 diabetes mellitus with diabetic nephropathy, without long-term current use of insulin (HCC) History of COVID-19 Obesity, Class III, BMI 40-49.9 (morbid obesity) Procedures Echo (TTE) complete (PRN contrast/bubble/strain/3D) MT ECHO TTHRC R-T 2D W/WOM-MODE COMPL SPEC&COLR D MT TTE W OR WO FOL WCON,DOPPLER Shalini Morrow PA-C [address] [place] [phone] Referral ID Status Reason Start Date Expiration Date V isits Requested Visits Authorized [id number] Not Required - RTA 02/05/2024 02/04/2025 1 1 Specialty Diagnoses / Procedures Referred By Contac t Referred To Contact Diagnoses Permanent atrial fibrillation (HCC) Chronic anticoagulation Essential hypertension Type 2 diabetes mellitus with diabetic nephropathy, without long-term current use of insulin (HCC) History of COVID-19 Obesity, Class III, BMI 40-49.9 (morbid obesity) Procedures Extended cardiac holter monitor (3 days-14 day) MT EXTERNAL ECG REC>48HR<7D REVIEW & INTERPRETATION MT EXTERNAL ECG REC>48HR<7D RECORDING MT EXTERNAL ECG REC>7D<15D RECORDING MT EXTERNAL ECG REC>7D<15D REVIEW & INTERPRETATION Shalini Morrow PA-C [address] [place] [phone] Referral ID Status Reason Start Date Expiration Date V isits Requested Visits Authorized [id number] Not Required - RTA 02/05/2024 02/04/2025 1 1 Specialty Diagnoses / Procedures Referred By Contac t Referred To Contact Cardiology Diagnoses PAF (paroxysmal atrial fibrillation) (HCC) Procedures Cardioversion external HC CARDIOVERSION Ej Foster MD [address] [place] [phone] Referral ID Status Reason Start Date Expiration Date V isits Requested Visits Authorized [id number] Not Required - RTA 02/22/2024 02/21/2025 1 1 Specialty Diagnoses / Procedures Referred By Contac t Referred To Contact Cardiology Diagnoses AF (paroxysmal atrial fibrillation) (HCC) Procedures Extended cardiac holter monitor (3 days-14 day) MT EXTERNAL ECG REC>48HR<7D REVIEW & INTERPRETATION MT EXTERNAL ECG REC>48HR<7D RECORDING MT EXTERNAL ECG REC>7D<15D RECORDING MT EXTERNAL ECG REC>7D<15D REVIEW & INTERPRETATION Ej Foster MD [address] [place] [phone] Referral ID Status Reason Start Date Expiration Date Visits Re quested Visits Authorized [id number] Closed 02/26/2024 02/25/2025 1 1 History of Present Illness * Nini Todd - 01/22/2020 11:30 AM EST Explained policies and procedures of an echocardiogram/Doppler study. documented in this encounter* Arianna Allen RN - 02/12/2020 9:42 AM EST Claims Service Representative reviewed discharge instructions with patient and spouse. Both verbalized understanding. Denies questions. Copy of discharge instructions given to patient. 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) Class 2 obesity with body mass index (BMI) of 36.0 to 36.9 in adult, unspecified obesity type, unspecified whether serious comorbidity present Diagnosis Persistent atrial fibrillation (HCC) Atrial fibrillation Essential hypertension Unspecified essential hypertension SOB (shortness of breath) Shortness of breath Fluid retention Other fluid overload Other specified diabetes mellitus with other specified complication, unspecified whether group home insulin use (HCC) Class 2 obesity [...] mellitus with other specified complication, unspecified whether group home insulin use (HCC) Class 2 obesity [...] doctor prescribes. Do not take any vitamins, uhpr-bjo-zneilcl medicines, or herbal products without talking to [...] or uneven pulse. After calling 911, the lathe setup operator may tell you to chew 1 [...] Where can you learn more? Go to [email or web address] and sign in to your [email or web address] account. Enter A617 in the Search Health Information box to learn more about Electrical Cardioversion: What to Expect at Home. If you do not have an account, please click on the Sign Up Now link. [id number] [employer]. Care instructions adapted under license by [employer]. This care instruction is for use with your licensed healthcare professional. If you have questions about amedical condition or this instruction, always ask your healthcare professional. [employer] disclaims any warranty or liability for your use of this information. Content Version: 10.6.522487; Current as of: April 04, 2014 documented [...] and content) DATE CREATED AUTHOR 12/21/2019 [facility] pital DATE CREATED AUTHOR AUTHOR'S ORGANIZ ATION 06/12/2021 [facility] dical Specialist DATE CREATED AUTHOR AUTHOR'S ORGANIZ ATION 10/25/2021 [facility] DATE CREATED AUTHOR AUTHOR'S ORGANIZ ATION 05/27/2023 [facility] y[facility] DATE CREATED AUTHOR AUTHOR'S ORGANIZ ATION 07/02/2023 [facility] DATE CREATED AUTHOR AUTHOR'S ORGANIZ ATION 02/26/2024 [facility] dical Specialists EPIC DATE CREATED AUTHOR AUTHOR'S ORGANIZ ATION 02/28/2024 [facility] pital DATE CREATED AUTHOR AUTHOR'S ORGANIZ ATION 03/12/2024 [facility] Reason for Visit (unrecogniz ed section and content) Status Reason Specialty Diagnoses / Procedures Referred By Contact Referred To Contact Closed Cardiology / Echocardiography Diagnoses Persistent atrial fibrillation (HCC) Essential hypertension SOB (shortness of breath) Fluid retention Other specified diabetes mellitus with other specified complication, unspecified whether group home insulin use (HCC) Class 2 obesity with body mass index (BMI) of 36.0 to 36.9 in adult, unspecified obesity type, unspecified whether serious comorbidity present Procedures ECHO Complete 2D W Doppler W Color Ej Foster MD [address] [place] [address] [place] [address] [facility] Echo [address] [place] [address] Status Reason Specialty Diagnoses / Procedures Referre d By Contact Referred To Contact Closed Radiology Diagnoses Pain in both lower extremities PVD (peripheral vascular disease) (HCC) Procedures VL LOWER EXTREMITY ARTERIAL SEGMENTAL PRESSURES W PPG Ej Foster MD [address] [place] [address] [place] [address] Status Reason Specialty Diagnoses / Procedures Re ferred By Contact Referred To Contact Authorized Cardiology Diagnoses Essential hypertension Persistent atrial fibrillation (HCC) SOB (shortness of breath) Other specified diabetes mellitus with other specified complication, unspecified whether group home insulin use (HCC) COVID-19 Procedures Referral to Cardiac Cath MT CARDIOVERSION ELECTIVE ARRHYTHMIA EXTERNAL Ej Foster MD [address] [place] [address] [place] [address] [place] [address] Status Reason Specialty Diagnoses / Procedures Referre d By Contact Referred To Contact Closed Cardiology Diagnoses Persistent atrial fibrillation (HCC) SOB (shortness of breath) Essential hypertension Other specified diabetes mellitus with other specified complication, unspecified whether group home insulin use (HCC) Class 2 obesity with body mass index (BMI) of 36.0 to 36.9 in adult, unspecified obesity type, unspecified whether serious comorbidity present Pain in both lower extremities Procedures Echo 2D w doppler w color complete Ej Foster MD [address] [place] [address] [place] [address] Reason Onset Date Comments re: PT today [...] be covered. He gave a reference # [id number]. Reason Comments Toenail Care PCP: Kenia Mace 10/11/23, A1C: 6.2, BS: 107 Reason Comments Cough Reason Comments Establish Care Reason Comments Med Refill Specialty Diagnoses / Procedures Referred By Contac t Referred To Contact Diagnoses Permanent atrial fibrillation (HCC) Chronic anticoagulation Essential hypertension Type 2 diabetes mellitus with diabetic nephropathy, without long-term current use of insulin (HCC) History of COVID-19 Obesity, Class III, BMI 40-49.9 (morbid obesity) Procedures Echo (TTE) complete (PRN contrast/bubble/strain/3D) MT ECHO TTHRC R-T 2D W/WOM-MODE COMPL SPEC&COLR D MT TTE W OR WO FOL WCON,DOPPLER Shalini Morrow PA-C [address] [place] [address] Referral ID Status Reason Start Date Expiration Date V isits Requested Visits Authorized [id number] Not Required - RTA 02/05/2024 02/04/2025 1 1 Specialty Diagnoses / Procedures Referred By Contac t Referred To Contact Diagnoses Permanent atrial fibrillation (HCC) Chronic anticoagulation Essential hypertension Type 2 diabetes mellitus with diabetic nephropathy, without long-term current use of insulin (HCC) History of COVID-19 Obesity, Class III, BMI 40-49.9 (morbid obesity) Procedures Extended cardiac holter monitor (3 days-14 day) MT EXTERNAL ECG REC>48HR<7D REVIEW & INTERPRETATION MT EXTERNAL ECG REC>48HR<7D RECORDING MT EXTERNAL ECG REC>7D<15D RECORDING MT EXTERNAL ECG REC>7D<15D REVIEW & INTERPRETATION Shalini Morrow PA-C [address] [place] [address] Referral ID Status Reason Start Date Expiration Date V isits Requested Visits Authorized [id number] Not Required - RTA 02/05/2024 02/04/2025 1 1 Specialty Diagnoses / Procedures Referred By Contac t Referred To Contact Cardiology Diagnoses PAF (paroxysmal atrial fibrillation) (HCC) Procedures Cardioversion external HC CARDIOVERSION Ej Foster MD [address] [place] [address] [place] [address] Referral ID Status Reason Start Date Expiration Date V isits Requested Visits Authorized [id number] Not Required - RTA 02/22/2024 02/21/2025 1 1 Reason Comments Medicare Annual Wellness Visit [facility] Specialty Diagnoses / Procedures Referred By Contac t Referred To Contact Cardiology Diagnoses AF (paroxysmal atrial fibrillation) (HCC) Procedures Extended cardiac holter monitor (3 days-14 day) MT EXTERNAL ECG REC>48HR<7D REVIEW & INTERPRETATION MT EXTERNAL ECG REC>48HR<7D RECORDING MT EXTERNAL ECG REC>7D<15D RECORDING MT EXTERNAL ECG REC>7D<15D REVIEW & INTERPRETATION Ej Foster MD [address] [place] [address] [place] [address] Referral ID Status Reason Start Date Expiration Date Visits Re quested Visits Authorized [id number] Closed 02/26/2024 02/25/2025 1 1 Care Teams (unrecognized sec tion and content) 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 Relationship Specialty Start Date End Date Bernie Adam MD [address] [place] [address] PCP - ACO Reach 07/07/22 Bernie Adam MD [address] [place] [address] PCP - General Family Medicine 08/01/22 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 Relationship Specialty Start Date End Date Bernie Adam MD [address] [place] [address] PCP - ACO Reach 07/07/22 Bernie Adam MD [address] [place] [address] PCP - General Family Medicine 08/01/22 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 Relationship Specialty Start Date End Date Bernie dAam MD [address] [place] [address] PCP - ACO Reach 07/07/22 Bernie Adam MD [address] [place] [address] PCP - General Family Medicine 08/01/22 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 Relationship Specialty Start Date End Date Bernie Adam MD [address] [place] [address] PCP - ACO Reach 07/07/22 Bernie Adam MD [address] [place] [address] PCP - General Family Medicine 08/01/22 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 Relationship Specialty Start Date End Date Bernie Adam MD [address] [place] [address] PCP - ACO Reach 07/07/22 Bernie Adam MD [address] [place] [address] PCP - General Family Medicine 08/01/22 Team [...] May 23, 2023 End: May 23, 2023 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 Relationship Specialty Start Date End Date Bernie Adam MD [address] [place] [address] PCP - General Family Medicine 08/01/22 Bernie Adam MD [address] [place] [address] PCP - ACO Reach 06/14/23 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 Relationship Specialty Start Date End Date Bernie Adam MD [address] [place] [address] PCP - General Family Medicine 08/01/22 Bernie Adam MD [address] [place] [address] PCP - ACO Reach 06/14/23 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 Relationship Specialty Start Date End Date Bernie Adam MD [address] [place] [address] PCP - General Family Medicine 08/01/22 Bernie Adam MD [address] [place] [address] PCP - ACO Reach 06/14/23 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 Relationship Specialty Start Date End Date Bernie Adam MD [address] [place] [address] PCP - General Family Medicine 08/01/22 Bernie Adam MD [address] [place] [address] PCP - ACO Reach 06/14/23 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 Relationship Specialty Start Date End Date Bernie Adam MD [address] [place] [address] PCP - General Family Medicine 08/01/22 Bernie Adam MD [address] [place] [address] PCP - ACO Reach 06/14/23 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 Relationship Specialty Start Date End Date Bernie Adam MD [address] [place] [address] PCP - General Family Medicine 08/01/22 Bernie Adam MD [address] [place] [address] PCP - ACO Reach 06/14/23 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 Relationship Specialty Start Date End Date Bernie Adam MD [address] [place] [address] PCP - General Family Medicine 08/01/22 Bernie Adam MD [address] [place] [address] PCP - ACO Reach 06/14/23 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 Relationship Specialty Start Date End Date Bernie Adam MD [address] [place] [address] PCP - General Family Medicine 08/01/22 Bernie Adam MD [address] [place] [address] PCP - ACO Reach 06/14/23 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 Relationship Specialty Start Date End Date Bernie Adam MD [address] [place] [address] PCP - General Family Medicine 08/01/22 Bernie Adam MD [address] [place] [address] PCP - ACO Reach 06/14/23 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 Relationship Specialty Start Date End Date Bernie Adam MD [address] [place] [address] PCP - General Family Medicine 08/01/22 Bernie Adam MD [address] [place] [address] PCP - ACO Reach 06/14/23 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 Relationship Specialty Start Date End Date Jeannine Evangelista RN IMMUNOLOGY - SUPERVISOR [employer] [address] [place] [address] PCP - General Nurse Practitioner [facility] 01/30/20 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 Relationship Specialty Start Date End Date Jeannine Evangelista RN IMMUNOLOGY - SUPER[employer] [address] [place] [address] PCP - General Nurse Practitioner [facility] 01/30/20 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 Relationship Specialty Start Date End Date Bernie Adam MD [address] [place] [address] PCP - General Family Medicine 08/01/22 Bernie Adam MD [address] [place] [address] PCP - ACO Reach 06/14/23 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 Relationship Specialty Start Date End Date Jeannine Evangelista, RN IMMUNOLOGY - SUPER[employer] [address] [place] [address] PCP - General Nurse Practitioner [facility] 01/30/20 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 Relationship Specialty Start Date End Date Bernie Adam MD [address] [place] [address] PCP - General Family Medicine 08/01/22 Bernie Adam MD [address] [place] [address] PCP - ACO Reach 06/14/23 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 Relationship Specialty Start Date End Date Jeannine Evangelista APRN - SHAILESH [address] [facility] [place], [place] [phone] PCP - General Nurse Practitioner Family 01/30/20 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 Relationship Specialty Start Date End Date Bernie Adam MD [address] [facility] [place], [place] [phone] PCP - General Family Medicine 08/01/22 Bernie Adam MD [address] [facility] [place], [place] [phone] PCP - ACO Reach 06/14/23 Goals (unrecognized [...] BE BASED ON THE PRIMARY CLINICAL RECORDS. [employer] provides no warranty or guarantee of the accuracy or completeness of information in this document.
[2024-04-01 09:42] VITALS: BP 127/76; PULSE 69; O2SAT 94
[2024-04-01 09:43] VITALS: BP 162/88; PULSE 62; O2SAT 94
[2024-04-01] MEDS: IOHEXOL 240 MG/ML - 10 ML VIAL 12 MG INJ (09:45)
[2024-04-01] MEDS: METHYLPREDNISOLONE ACETATE 40 MG/ML VIAL INJ (09:45)
[2024-04-01] MEDS: LIDOCAINE HCL 2% 400 MG/20 ML MDV INJ (09:45)
[2024-04-01] MEDS: BUPIVACAINE HCL 0.25% PF 25 MG/10 ML VIAL 2 ML INJ (09:45)
--- NOTE | 2024-04-01 09:45 | W.PM.PROCNOT ---
Date of procedure: 04/01/24 Pre-op diagnosis: Pain due to left sacroiliitis Post-op diagnosis: same as pre-op Procedure: Procedure: Left sacroiliac joint injection Medications: Bupivacaine 0.25% 3cc, depomedrol 40mg After informed consent was obtained, the patient was brought to the medical procedure unit and placed in the prone position, when a timeout was completed verifying correct patient, procedure, site, positioning, implant, and/or special equipment.? The skin overlying the area was prepped and draped in standard sterile fashion using alcohol.? A 25-gauge needle was inserted towards the left sacroiliac joint under direct fluoroscopic imaging.? Needle tip was advanced until the joint was encountered.? We instilled a total of 2 mL of solution.? Postoperatively needles were removed.? The patient tolerated the procedure well without complication.? The patient reported reduction in pain symptoms postoperatively. Anesthesia: Local Surgeon: Ever Guillen Pathology: none sent Condition: stable Disposition: no change
== END 2024-04-01 09:50 | disposition home or self-care (01) ==
LOC: SURGOUT 08:33
PROVIDERS: Visit Provider Anesthesiology
DX: M46.1 Sacroiliitis, not elsewhere classified (principal)
CPT/HCPCS: 27096; 36415; 82948; J0665; J1010; Q9966

== ENCOUNTER 2024-04-17 09:50 | Outpatient (OUT) | payer OTHER, SELFPAY ==
--- OUTSIDE RECORDS SUMMARY | 2024-04-17 10:02 | XMS_ITS | CCD ---
Author Organization [facility] Care Team Providers Care Senior Research Executive Name Role Phone Unavailable Primary Care Provider Unavailabl e MISC, DOCTOR Primary Care Unavailable MATTEVI, ARMANDO Admitting Unavailable MATTEVI, ARMANDO Consulting Unavailable BIPIN ARMANDO Attending Unavailable Rpuesh Ulrich Unavailable Jeannine Evangelista Primary Care Provider [phone] Tonja KIM - Jeannine CASH Primary Care P roluis manuel Bernie Adam MD Unavailable Bernie Adam MD Primary Care Provider EVANS Redd Attending Provider [phone] AWAIS Evangelista Primary Care Provider AWAIS Evangelista Primary Care Provider EVANS Redd Attending Provider [phone] Marina Redd Attending Unavailable Marina Redd Admrandolph Unavailable Jeannine Evangelista Primary Care Unavailable DAVID AWAD JR Attending UnavailDAVID Rahman JR Referring UnavailJEANNINE Pierce Primary Care Unavailab DAVID Roman JR Attending UnavailDAVID Rahman JR Referring Unavailabl JEANNINE Gates Primary Care Unavailab Bernie Barrios MD Unavailable Tonja KIM - Jeannine CASH Primary Care P roluis manuel ARIANNA LOU Attending Unavailable MARINA REDD Attending Unavailable REDD, MARINA Naidu Referring Unavailable REDD, MARINA Naidu Attending Unavailable REDD, MARINA J Referring Unavailable BLACKSTON, YULIYA Martinez Attending Unavailable REDD, MARINA Naidu Referring Unavailable BLACKSTON, YULIYA T Attending Unavailable KAMPFER, KENIA Referring Unavailable BLACKSTON, YULIYA T Attending Unavailable REDD, MARINA J Referring Unavailable BLACKSTON, YULIYA T Attending Unavailable REDD, MARINA J Referring Unavailable BLACKSTON, YULIYA T Attending Unavailable REDD, MARINA J Referring Unavailable BLACKSTON, YULIYA T Attending Unavailable REDD, MARINA J Referring Unavailable REDD, MARINA J Attending Unavailable REDD, MARINA J Referring Unavailable JR. MARIA GUADALUPE, DAVID Matthews Attending Unavaila ble KAMPFER, KENIA Attending Unavailable BOBBY PINK Attending Unavailable JR. MARIA GUADALUPE, DAVID Matthews Referring Unavaila ble KAMPFER, KENIA Attending Unavailable RUSHER, ARIANNA Alfonso Attending Unavailable KAMPFER, KENIA Attending Unavailable KAMPFER, KENIA Attending Unavailable RUSHER, ARIANNA Alfonso Attending Unavailable EVANGELISTA, JEANNINE Alfonso Attending Unavailab le KAMPFER, KENIA Attending Unavailable LAUDICKSHALINI Referring Unavailable EVANGELISTA, JEANNINE A Primary Care Unavailab le SHALINI MORROW Referring Unavailable EVANGELISTA, JEANNINE Alfonso Primary Care Unavailab le CRISTIAN, ALI F Kate Referring Unavailable EVANGELISTA, JEANNINE Alfonso Primary Care Unavailab le AHMAD, ALI F O Attending Unavailable AHMAD, ALI F O Referring Unavailable EVANGELISTA, JEANNINE A Primary Care Unavailab cipriano Guillen MD, Ever Gonzalez Attending Unavailable Giedraitis , Andrius Gonzalez Attending Unavailable Giedraitis , Andrius Lisa Attending Unavailable Gijieitis , Andrius Lisa Attending Unavailable Giedraitis , Andrius Lisa Attending Unavailable Giedraitis , Andrius Gonzalez Attending Unavailable Medications Current Medications Medication [...] mellitus with other specified complication, unspecified whether oil heaterman insulin use (HCC) , Class 2 obesity [...] mouth twice daily as needed HYDROcodone-acetami nophen (Frohna) 5-325 MG tablet Take 1 tablet by mouth 2 (two) times a day as needed 06/28/2023 02/20/2024 Discontinued (Therapy completed) [id number] 200 actuat albuterol 0.09 mg/actuat metered dose [...] mellitus with other specified complication, unspecified whether oil heaterman insulin use (HCC) , Class 2 obesity [...] sources) Long-term current use of anticoagulant; 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: [USP (current) use of anticoagulants] 02-05-2024 Episodic Other aftercare (1 source) USP (current) use of anticoagulants; 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: [USP (current) use of anticoagulants] Onset: 02-05-2024 Episodic [...] including parasitic (20 sources) Post-viral disorder; 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: 04-27-2020 10-04-2022 Chronic Other infections; [...] unspecified site] Onset: 05-26-2021 10-04-2022 Episodic Other COMPANY MARKER infection and poliomyelitis (20 sources) H/O: poliomyelitis; [...] Mascorro on 02-23-2024 Q-T Interval 382 ms [employer] Phone: QRS Duration 96 ms [employer] Phone: QTc Calculation (Bazett) 451 ms [employer] Phone: R Mosier -23 degrees [employer] Phone: T Mosier 22 degrees [employer] Phone: Ventricular Rate 84 BPM [facility] [employer] Phone: [employer] Phone: EKG 12 Leadon 02-23-2024 Atrial fibrillation Abnormal ECG ECG not diagnostic for Acute Coronary Syndrome; consider clinical findings When compared with ECG of 12-FEB-2020 08:26, Atrial fibrillation has replaced Sinus rhythm Confirmed by ARIANNA MASCORRO ([id number]) on 02/23/2024 10:09:04 PM [facility] Arianna Mascorro MD - 02/23/2024 Atrial [...] 471 ms [facility] R Mosier -23 degrees [facility] T Mosier -19 degrees [facility] Ventricular [...] ARIANNA MASCORRO ([id number]) on 02/23/2024 9:25:47 PM [facility] Arianna Mascorro MD - 02/23/2024 Normal [...] 56 BPM [facility] P Mosier 17 degrees [facility] P-R Interval 204 ms [facility] Q-T Interval 442 ms [facility] QRS Duration 98 ms [facility] QTc Calculation (Bazett) 426 ms [facility] R Mosier -25 degrees [facility] T Mosier 5 degrees [facility] Ventricular Rate 56 BPM [facility] Sinus bradycardia Otherwise normal ECG When compared with ECG of 23-FEB-2024 12:06, (unconfirmed) Previous ECG has undetermined rhythm, needs review Confirmed by ARIANNA MASCORRO ([id number]) on 02/23/2024 9:11:49 PM [facility] Arianna Mascorro MD - 02/23/2024 Sinus bradycardia Otherwise normal ECG When compared with ECG of 23-FEB-2024 12:06, (unconfirmed) Previous ECG has undetermined rhythm, needs review Confirmed by ARIANNA MASCORRO ([id number]) on 02/23/2024 9:11:49 PM [facility] 25-hydroxyvitamin D3 [Mass/V ol]on 02-21-2024 25-hydroxyvitamin D [Mass/Vol] 36 ng/mL 30 - 100 ng/mL [facility] Comment on above: Vitamin D Status 25- OH Vitamin D: Deficiency: <20 ng/mL Insufficiency: 20 - 29 ng/mL Optimal: > or = 30 ng/mL For 25-OH Vitamin D testing on patients on D2-supplementation and patients for whom quantitation of D2 and D3 fractions is required, the QuestAssureD(TM) 25-OH VIT D, (D2,D3), LC/MS/MS is recommended: order code 96229 (patients >2yrs). See Note 1 Note 1 For additional information, please refer to http://education.HackMyPic.Boastify/faq/GER645 (This link is being provided for informational/ educational purposes only.) Laboratory - Chemistry and C hemistry - challengeon 02-21-2024 Albumin [Mass/Vol] 4.1 g/dL 3.6 - 5.1 g/dL [facility] Albumin/Globulin [Mass ratio] 2.2 {ratio} [facility] ALP [Catalytic activity/Vol] 72 U/L 35 - 144 U/L [facility] ALT [Catalytic activity/Vol] 13 U/L 9 - 46 U/L [facility] AST [Catalytic activity/Vol] 16 U/L 10 - 35 U/L [facility] Bilirubin [Mass/Vol] 0.6 mg/dL 0.2 - 1 .2 mg/dL [facility] Calcium [Mass/Vol] 9.1 mg/dL 8.6 - 10. 3 mg/dL [facility] Chloride [Moles/Vol] 102 mmol/L 98 - 11 0 mmol/L [facility] CO2 [Moles/Vol] 27 mmol/L 20 - 32 mmol/L [facility] Creatinine [Mass/Vol] 0.87 mg/dL 0.70 - 1.28 mg/dL [facility] GFR/1.73 sq M.predicted among non-blacks MDRD (S/P/Bld) [Vol rate/Area] 90 mL/min/{1.73_m2} > OR = 60 mL/min/1.73m2 [facility] Globulin (S) [Mass/Vol] 1.9 g/dL [facility] Glucose [Mass/Vol] 139 mg/dL High 65 - 99 mg/dL [facility] Comment on above: Fasting reference interval For someone without known diabetes, a glucose value >125 mg/dL indicates that they may have diabetes and this should be confirmed with a follow-up test. Potassium [Moles/Vol] 4 mmol/L 3.5 - 5.3 mmol/L [facility] Prostate specific Ag [Mass/Vol] 0.33 ng/mL < OR = 4.00 [facility] Comment on above: The total PSA value [...] g/dL Low 6.1 - 8.1 g/dL [facility] Sodium [Moles/Vol] 141 mmol/L 135 - 146 mmol/L [facility] Urate [Mass/Vol] 7.5 mg/dL 4.0 - 8.0 mg/dL [facility] Comment on above: Therapeutic target f or gout patients: <6.0 mg/dL Urea nitrogen [Mass/Vol] 17 mg/dL 7 - 25 mg/dL [facility] Urea nitrogen/Creatinine [Mass ratio] SEE NOTE: [facility] Comment on above: Not Reported: BUN an d Creatinine are within reference range. Laboratory - Hematology and Cell countson 02-21-2024 HbA1c (Bld) [Mass fraction] 6.3 % High NINF [facility] Comment on above: For someone without known [...] 1996 panelon 5 Cholesterol [Mass/Vol] 121 mg/dL [facility] - 200 mg/dL [facility] Cholesterol in HDL [Mass/Vol] 40 mg/dL > OR = 40 [facility] Cholesterol in LDL [Mass/Vol] 53 mg/dL mg/dL (calc) [facility] Comment on above: Reference range: <10 0 Desirable range <100 mg/dL for primary prevention; <70 mg/dL for patients with CHD or diabetic patients with > or = 2 CHD risk factors. LDL-C is now calculated using the -Winifred calculation, which is a validated novel method providing better accuracy than the Friedewald equation in the estimation of LDL-C. SS et al. TANA. 2013;310(19): 6217-9596 (http://education.Jinni/faq/QBP886) Cholesterol non HDL [Mass/Vol] 81 mg/dL [facility] Comment on above: For patients with di abetes plus 1 major ASCVD risk factor, treating to a non-HDL-C goal of <100 mg/dL (LDL-C of <70 mg/dL) is considered a therapeutic option. Cholesterol.total/Ch olesterol in HDL [Mass ratio] 3 {ratio} [facility] Interpretation and review of laboratory results Abnormal [facility] Triglyceride [Mass/Vol] 224 mg/dL High [facility] - 150 mg/dL [facility] Comment on above: If a non-fasting specimen was collected, consider repeat triglyceride testing on a fasting specimen if clinically indicated. Chantell et al. J. of Clin. Lipidol. 2015;9:129-169. Performing Organization Information Site ID: QPT Name: [facility] Address: [address] [place] [address], [address] [place] [id number] Director: Curtis Lyons MD [facility] Microalbumin/Creatinine rati o panel (U)on 02-21-2024 Albumin DL <= 20 mg/L (U) [Mass/Vol] 0.7 mg/dL See Note: [facility] Comment on above: Reference Range: Reference Range Not established Albumin/Creatinine (U) [Mass ratio] 5 NINF [facility] Comment on above: The ADA defines [...] [Mass/Vol] 154 mg/dL 20 - 320 mg/dL [facility] Information Site ID: QPT Name: [facility] Address: [address] [place] [address], [address] [place] [id number] Director: Curtis Lyons MD [facility] No Panel Informationon 02-20 Interpretation and review of laboratory results Abnormal [facility] PATIENT UNABLE TO VOID; ADVISED TO RETURN FOR COLLECTION. [facility] Information Site ID: QPT Name: [facility] Address: [address] [place] [address], [address] [place] [id number] Director: Curtis Lyons MD [facility] Cardiac echo study Procedure Ordered By: Arianna Mascorro on 02-05-2024 Ao Root Index 0.86 cm/m2 [employer] Phone: Aortic Root 2.2 cm [employer] Phone: Aortic Sinus Valsalva 3.3 cm [employer] Phone: Aortic Sinus Valsalva Index 1.29 cm/m2 [employer] Phone: Ascending Aorta 3.5 cm [facility] [employer] Work Phone: Ascending Aorta Index 1.37 cm/m2 [employer] Phone: AV Cusp Mmode 1.8 cm [employer] Phone: AV Mean Gradient 3 mmHg [facility] [employer] Work Phone: AV Mean Velocity 0.8 m/s Grant rasheed [employer] Work Phone: AV Peak Gradient 6 mmHg Bon Jonah rasheed [employer] Work Phone: AV Peak Velocity 1.2 m/s Grant rasheed [employer] Phone: AV Velocity Ratio 0.75 Grant rosales [employer] Work Phone: AV VTI 18.4 cm Grant [employer] Work Phone: Body surface area Derived from formula 2.67 m2 [employer] Phone: E/E' Lateral 4.69 [employer] Phone: EF BP 55 % 55 - 100 % [employer] Phone: Est. RA Pressure 3 mmHg Bon Jonah rasheed [employer] Work Phone: Fractional Shortening 2D 28 % 28 - 44 % [employer] Work Phone: Interpretation and review of laboratory results Abnormal [employer] Work Phone: IVSd 1.3 cm Abnormal 0.6 - 1.0 cm [employer] Phone: LA Area 2C 26.6 cm2 [employer] Phone: LA Area 4C 25.0 cm2 [employer] Work Phone: LA Major Mosier 7.3 cm [employer] Work Phone: LA Minor Mosier 6.9 cm [employer] Phone: LA Volume BP 78 mL Abnormal 18 - 58 mL [employer] Phone: LA Volume Index BP 30 ml/m2 16 - 34 ml/m2 [employer] Work Phone: LA Volume Index MOD A2C 33 ml/m2 16 - 34 ml/m2 [employer] Work Phone: LA Volume Index MOD A4C 27 ml/m2 16 - 34 ml/m2 [employer] Work Phone: LA Volume MOD A2C 84 mL Abnormal 18 - 58 mL Bon [facility] Work Phone: LA Volume MOD A4C 69 mL Abnormal 18 - 58 mL Bon [facility] Work Phone: LV E' Lateral Velocity 11.30 cm/s [employer] Work Phone: LV EDV A2C 74 mL [employer] Work Phone: LV EDV A4C 102 mL [employer] Phone: LV EDV Index A2C 29 mL/m2 [employer] Work Phone: LV EDV Index A4C 40 mL/m2 [employer] Work Phone: LV Ejection Fraction A2C 57 % [employer] Work Phone: LV Ejection Fraction A4C 52 % [employer] Phone: LV ESV A2C 32 mL [employer] Work Phone: LV ESV A4C 49 mL [employer] Phone: LV ESV Index A2C 13 mL/m2 Bon [employer] Work Phone: LV ESV Index A4C 19 mL/m2 [employer] Work Phone: LV Mass 2D 279.8 g Abnormal 88 - 224 g [employer] Work Phone: LV Mass 2D Index 109.3 g/m2 49 - 115 g/m2 Bon S светлана [employer] Work Phone: LV RWT Ratio 0.44 [employer] Phone: LVIDd 5.4 cm 4.2 - 5.9 cm [employer] Work Phone: LVIDd Index 2.11 cm/m2 [employer] Phone: LVIDs 3.9 cm [employer] Phone: LVIDs Index 1.52 cm/m2 [employer] Phone: LVOT Mean Gradient 2 mmHg Bon Se cours [employer] Work Phone: LVOT Peak Gradient 3 mmHg [employer] Work Phone: LVOT Peak Velocity 0.9 m/s [facility] [employer] Phone: LVOT VTI 14.4 cm [employer] Phone: LVOT:AV VTI Index 0.78 Bon [employer] Phone: LVPWd 1.2 cm Abnormal 0.6 - 1.0 cm [employer] Phone: MV E Velocity 0.53 m/s [employer] Phone: MV E Wave Deceleration Time 156.0 ms [employer] Phone: PV Max Velocity 1.0 m/s [facility] [employer] Phone: PV Peak Gradient 4 mmHg Bon [employer] Phone: RVSP 22 mmHg [employer] Phone: Sinotubular Junction 2.3 cm [employer] Phone: TR Max Velocity 2.17 m/s [employer] Phone: TR Peak Gradient 19 mmHg Bon [employer] Phone: [employer] Phone: Cardiac echo study Procedure on 02-05-2024 [...] Image quality: adequate. No contrast was given. [facility] Radiology Study observation (narrative) [facility] Coding Summaryon 10-25-2021 Coding Summary HTMLBase 64 NhiywpviPFq0zJc+PGhl YWQ+UF0WIYSnK34bgPFc mQ1QW3dHYK1MGTNINYLT PQ8GNL6dtBC2LSlaH7Cv biAv NznglMJeFO57ELo7IDT5 aYszKZqvjL9ggAExQ0l6 TyWlPE38lH75ZBsyJTPc GeO9WuXurvtoaURu Z9rgIxMimIImVih+PHRh YmxlIHdpZHRoPScxMDAl GjVzaGkcRP8oWh9aPZHj LWNvbGxhcHNlOiBj d4kjQJBkCBjeOY1hlMyd R7GseNU0LFXfu7v7Qm45 dHI+HBLzMLE2dJdpQWct v471UhBsp2ieKGG5 xEUpGMkrAPC3V95ya2T7 NYYbFIPgZNT7fFE0gN7q iEbycckpE7IvwSTpOtC6 BFL1cMGpeF2vjJsp kraetI3vSkx+P71PGS1K LVDYWX4AAoj3P3WuHnpg dHI+CL69WKIbWP06bTPx cPMtr6wlyTz1LzIv BYWlHFL8iZuvJHlri5Ku ULYyG07tfWGlw8N0KNYp zZnecUHbWgMmiXS0tC7k WIkamouxc4ndfeyn Fzrmf0ydsl68mV58D80k ECrpYUViHUN0RCBgZIUk nJjowk6goI2uOt1+IDxj d6enx8oozFf7HvVw SKNpraLwmEryTEK3y9Si Mb74O2RpaYmma5VeMui8 fq02mQHmc8S2pTH7QIxv IXNqcQ2wTZgkSpI8 YHVoOdBnkC99mYTjZPkd Ax4rnOncqAltKF0oXPFd vigoNVZdtN3aZMQgkAJe eZbxFY7sYTPcgrvs g831LzQhFDK3ZYSeoSRc F9EhxB5zCvIyGZFkMQRs Q2RuvZJoVEhmE718JKll NtZ7QHCgmaIbD9Mt WMCxhVjkVwQ7y6H3Cv9P l3OklzdaDIF0LXyzRZY7 AoHsTcFxVnR9O8DqCbt5 GPMevPrqJJ0yF7Fg KOJooviaztcjcIH3XDJq FCQdcN06aUBtJTmzCt5o k0T1y670WNPhEJSfsD69 Kj4qgXjzWADifVPR xL4imabgk5hejphwKgDk PMUhBKn6NCm5KHJtmUgj EcNaTXZ6CuJ2LRY6mAQc pH0uoLizpkkaoT8w Oyc+N48ziJ1bLJV9QPB4 fnzpABJnwdYtXK00CW50 G7PfRqsdhEQqjZN+PGRp psDodIrlHG5jGuRj d7jor7MuMVsyO4JuRTGp SEadAdy3RZFhBLS2wVH5 iH8vEGVjHOogn1Y4tOL2 P5CvsxCqaq7lf1oa MSEfCNmdF14gtGGre0D1 CWEzlIK3KMTesQlwArSb cM52Arv+LSHeiFlbu3Zh Tpxer9qir1kfpVn4 IjMwJSIgdmFsaWduPSJ0 p6JqJz48Q66kXIllRGBa USMyWUHwODZepCepad7t eN1tBv6+PGNvbCB3 iUD5rD8gXIDrFsT8RRix X357AdQnmIHeRcmsc1ro n9rkoUq1YnYqWQCyhrOm vDusYMV7r5CaDx39 L17aHRhoRIAaJLKkHFKo MNVpnKaxrs1fyC7lBh8+ UY4vh9bhzj96xV69qTN+ EIBxYRN3jLllMSfk REOpxV7dIImfDhK3VRIq WsYsgQ38jNKwGQzoFg6l fXvykXnrWN9gEIIrlubu y044FcNto3hlXQEt wJJeMIwvBMO3U23tu1V7 BQIdFIZgLNS0sBH5eU3h bGlnbjogbGVmdDsgdmVy tBfsAZpkQBlqL883 IHRvcDsnPlBhdGllbnQg SvCjQOa1S3FtUbi9NRAu iKhkEC6amQNeSUgwUv1d vYfjxMyzZD2sAKAe ucsnv762MnRlb0svIACy pFQqITnvGQA1O72ub0F7 HNFqZVRpVQV8nOK9vM8z bGlnbjogbGVmdDsg szRhoRfkLYbnEUwnB511 IHRvcDsnPkJpcnRoIERh qSG1HI68OV69mZXml6E2 kGG9L0XmEFBsvydw bhbmhWJ2HAUqDIHskZ23 Yx6frGamTr2fPINcBYW3 FICiePIvD0HciJ0cHvBi FPQwNXJaJ5IrmLZs GGvoD568EHebTdO9FVLx piJyR2TzIEMnuXciDvX0 p5Y2Zt8RD3N3EH14YS89 kFYyk5H2jCP5C5Fl FTDmyhjfptbnoUB7APEw TARkjT96To1wyEiuAe6s VKHnUIL2XMMtgADmN1Vp dZ8nSpVmNQIcYZKi H6SfdEToQXwzE006OUom RsO9HJZqnuZoW0MaZYGh yRdgYmG9r9V8Gi0WSCz4 NH92GE54dRQnj2K4 gJE3O8ZyURUvfjxuxdwq fOW0HDIaDPIjrP39Hp4o bZelMc2hXBHxDXD0YJTh fJVuF3UhkY5rLnQw FHZjSGMgH2ZvrKUrLSxv C823WYpxFkG9BPQamvHs N0TmVXJeuAhaUfO8u6D9 Oq0FKMKvAA07DBO5 yOQ5CU76QQ83H2RwJhms dGFibGU+PHRhYmxlIHdp ZHRoPScxMDAlJyBzdHls XC9nRb6nMHWcOZEl cZcbiGViIuMih4cjRVHi WHxrPL8twYcaC5WbfFP4 TOHsh6p1Ox19H53fR3In dXA+WQVzhXZ6rEK1 cN0zDeXkSpJ5WKyeX963 AaCatYCzTieme6dpw9li dLt7IlF2OZSiydFyxDoa VFJ2q9BvBm16W75x IHdpZHRoPSIxNSUiIHZh eQucuq1rrV7bKn5+PGNv qDZ8cQK6jX7vHbXpAtI6 KBeyE235CnWunUGh Ajlql4kng7dkwKt7XvHd SHMtyfGdwPmePBW7b4Nf Id52A8FvmWbav8NdHky7 ze99vFDoh1R3kTH4 O7JjGAJsqkvysRDejJlt FT1iKOZicgqvRUXizM3m RLEaK2y8ChJmDoW7QVlj T7AvamA5SJPiqPNf DWavNRB3T76wk7H9FCRe YZEeZXY7eVA6vB9gmUot bjogbGVmdDsgdmVydGlj PZtnLVlbZ871VLJe xWdqFGJcfF5oNZQtfMAg dQgrSK8lGSNosagwJarR QkVSTElORywgTEFXUkVO R4RuCZjgeSQ+PHRk ZJP3hIkvPAngCRSatB0f OVEiH8y2KyGmKcN6SAfx W3OxYLDsmviwSy13lW5k DcXyQgT9FUjlJ6Pq kyB7QBGssDCeNFuoMPM9 H85js9W4RUGxAWDlTKR0 eTQ4sO7ywWawnfckiTVr dDsgdmVydGljYWwt UEpvT390GSMgpJuyPtQ0 EpZhRmR7XDb5R8SfDrh5 MEUvvKubJH4gwDWcEVbr Ff7xnJzkuUyeDF4s CUAhgkbeQCXfsU1eYIBn yAHxrBleNV8nFPEjwnct o652RgKkHXD6WWZtiYNy V8CfhP0lOsQcWNTh HBQeS2WyrJBfCFwzG715 WOtdJuC5NRJeimWgG3Fx EYGqfRckFdO5z4X9Fb46 MyBZZWFyczwvdGQ+ WDZvNGD4rCtzQMzxKQPi kF4tZCXeT3o2PhHrFlG8 CMwtC4DqEMOkoenzRx00 nY6rNvXjHxT8PWnc H8RqxvV4UJHniRErBTlj FUR5I45th8K3XTYeQQSm SHM6zSG6dG3pzXtdsvtb bGVmdDsgdmVydGlj RAmmYKejA272FSScjNvq Gu1GHXL2P5KbXwv5QGLs xZgjOE8ocDUaECbzVa0l xHwdjUyoWL5fZMZv ivezNIHpdX1hKSIokSVn kPtvQA5kYDRjkyfsg568 LkPhXNF6TCPtwJQfS7Wt nD8uIqCmSSLgGJYp I6KmhJRcXMgiG033EPkv ExO1CCCfeiNtT6IhFZYe nCcpKqC4i6O9Up8KWQvl dGQ+SA49wk14S9Is BcdbGny3APGsARA1yNB7 iN3vPOSeFXfxf4F0iOA4 J0WhjsFsmn5wq6xcZPRf IChaA92gbQEij3R2 WGLodOU5SPXnkOrlGeEa xI27Gsq+FFObrNoob6Is Qjjhl5hsy2mwdLr4IiEd JSIgdmFsaWduPSJ0 g2ApDg06S14sNPlgYJUs AAKiKXRkMGEuuYallq9s yG0pQc9+VANrgMK9gKI7 qG9wCkDhXvY6QMhm Y465JcHtqLYmIsqvv0wt e8cbpRs8WoIrYZAcvwKi mFndFVO7t3NoKx78Z3Xx vOnes9VdTmo8cx06 iWGxo7G9zGP7X8MxYYPk eduokYJliXthHL3kUCQc boblHJDyhE4vRUHfQ0x7 WwZnDqR8ORhkQ3Mp ywE0YYIbqXTjIXGhmLGP wY9uyddvf4xtyfjlTwGq ORIqUHj5KBz7BODrwHkq ReJwUKR7LpB6VQS2 mQFtuF7apFgcyyagbT1o Oyc+CBi9w6wihLPtYF2q nJX3VM89TK59dGWjk8J6 oPU5J0PpNXAwpqsq gbatgMJ7MSMrTOWvaW28 Mr6ovDaiUq6fUQBiCHP7 UVUjmKKeF9BzmC5rWfYo VWArNJUeU8SzbSHl UUrrQ999SSiePzI0BEFx aaSpT0QeDHIrjXcqXrB9 r9C4Be8ZXM67FZ90IR24 fNZrh9I4eVG3T6Wx PORddphcfsureWD8BRLi AFPvwI38Gz6acInrFk7q UFCaNCR4RTQlyZOwA1Ui pH8wDnLxHMBtAHJp X2KbvLBfMIzvZ878HJmt NaH6TWYcgiByF5ZdQEUz xMsfLuL0h7C9Rq8ARr09 RN37MT10aXBkt8M9 kMH5V4UkBKIqjdwqsvvc rRR5TKZgFPIthQ97Yx5g yYjmCd6oTMJvGXB2SGFf rQIoN4QuhG8rWfXt NAVoZCBzX3RcuCJdGXlk K738DKqtQrR1DNWepgFq A9VdZKIcwEzbOzL8o5L9 Un0FHYmlbyg0X7Fl PjwvdHI+CR60QTCyZB00 uQAtfQEzf8cerBo2AeCc LVOtNGU2sZtxYDsgi2Rr NRPrE52fhUIad9T6 IGN (more content not included)... [facility] Coding Summaryon 10-04-2021 Coding Summary HTMLBase 64 OafnypzyURl7mUt+PGhl YWQ+XP6RYSLpO49jlNOd hW5OY1oBMT4STSKRYYDL YF4IMV0ozGO8SDxqH9Id biAv OsqieQCeNR04ATx1SKB9 dIauVDjrzV0qkILmL3m7 OzRjCY87zU99EBeqLBVl HjK7CsGionnesMGt E0gkJqPrpBQtFii+PHRh YmxlIHdpZHRoPScxMDAl KnOpaNmaUC4sRp6oPAIs LWNvbGxhcHNlOiBj v3hwXSQoGQkrTQ1xrUjc W2HdbSX5FYSij4u2Dl60 dHI+GDLnZCT5aXefVJmo l495KaVby9dtEDG4 uHNfKOsxXSP6F34uj0D4 ZUYyWVHwAST1sRF0qW2a cIgzywxjU2ZmxIJuPbX4 PJB8aEMazS1hpItj ajeokU4sAmk+W60OYQ9M JYTDCQ7BPvd5R0XlMwxt dHI+GI89YQRySO44lXYt dELwe9gmcPz0TwFz SPUeFLH6uEdsMJxpp4Xe ASKpK09qtSYxt5L2JVRi dNdeyTWtDwLfkHL3cT2z SJjmcbnkf1anaimy Poqbu7kpqz93mE31R08g LEeqJNLfHHD4FTPtOCFk bSlyoy0iyQ5jQv9+IDxj y5xuq4lzrLf7NgVz VVZhaoSahZakJJI2n9Dr We62W7BfxCfje0GdTpm5 qn98jQNnv2D9aSB3RUom JNErhR9jUXtkMiP0 SJNdSmXwlA44kRYvYCkm Hk6zvZigsZalXL5dBGCz wwudNIXivL3tCNKdeYHb tNhmEL7dJSTdpaps s454IfFqLVD5NTUfzPRi L7IbjV0iRiZtEXWwJUXu Y3WnpEGjNJntJ475DLat GjG3NSPbmvHuO7Ft VAZapRktTfO4j5S8Bc7Q q9VriygkVBU8NPvjQYY8 QcEuUbIjMvF6I9HkCtc3 DWAzhXioVT3uU2Jl TJObsxkefiolhST5QTVl IASnwO57bPNnPDozKe8y u3G1c978LCAdDVLinL80 Jr5gvHcnTLMbgLWJ hA5wydhyv0embehdQiDl SPZnBGu3DFv5LSMmsGfg IbWkSDW6LwQ9GLH2jHWl gB3ocZifxhbkjJ0p Oyc+J98weR0nIJG5XPT2 peplFTAmizRkJI82IB09 H8PmJbbtjNNbsUJ+PGRp bnCsoUtwTQ7rZqRx b6heg5IwPIdyM7DtBWIh CMtyYin3YXApQLS9rYC9 gI6fGPCzBYpma1I7vDX0 Q6AbztBrxe6mv4wx GEVeLKkiM13gsGOdq7J7 HJOwbAO2SJMxtXiaExTl pR09Wwz+OGIblYuhx5Rj Tvfgg5ytb2yfrSa4 IjMwJSIgdmFsaWduPSJ0 x0QzSo29K31gQEjbIJWd VMEzBCGbQOVheIvxah9s cL7lFc8+PGNvbCB3 oMY8zT1tXVYbEkF1UGnu V797AtCwbIMrPdmax7bg y6nlwWy2ZcPbQEAmscYx xMliYLC7l8WcHh83 E59aPUznANUxLQCcOLFs GAMgyRzzjz6jiE9lYf8+ BT6ia0cqfm44hQ41hLI+ CWSeIJL5aWmtPBhv QGOyoR9aLQseMjI0WBVs ZsStbM74gKJyGOgaXl8m yRrrvRweNZ1dYZFlrcjm j247IfNmo1qfXNJv kZKxYNmhWOC8E94za4O7 CTDcDWWeQPP6dTM2yJ2n bGlnbjogbGVmdDsgdmVy jKmoNMeqWIbdW558 IHRvcDsnPlBhdGllbnQg JrUeXVo7H3AuVlx9CNNi iObgWD8vhHEcJPxwTm2n xBbbfKqpYC6fOYZz cguze805ByJek7ygKUCp eXUqEKtoOEB3O25rc9B1 RVBzVIKcJAO3gRL9xP1o bGlnbjogbGVmdDsg joTtxVktQDltIFnxO514 IHRvcDsnPkJpcnRoIERh qMI4FR88SU73wWItl2R3 zKK2J5YqMLZfzfcr uzmysGA3OIZwNOSedP07 Np9jyYdcHn4rYNCsRSO7 RJQaqKYuY7BkxV6rSbIh GYNqXAPgW2SvtBLr NVjiZ715XGqbMhJ8CQNd hqAyS3FgKDUwcShzDeP4 s8K4Nd1SE8W2YR03TE31 oHGsj8I6wGX1Q4Zk MIBbyqhgwwtyoJO5ZEUn VOBfoY16Jb3bwEivTd2g JZKzINT6ASPfbQRdZ9Ww fQ7kWyZpFCJjDXOo X8EhgMOwITjqR820SFcy SkK2JKQpzaUiI9YdMHMk hYvdPpT1s7A3Cg7JYEr5 DA62MZ45vVXlx7P8 tGT0Z4IkODCcdmqbtors wDA5XEUdNPWrxC82Qn2o uXdqHy0yIPWzXEF1ZTNw yTMzM8PfgS7xKvMx AOQhDFNpE3WfpEUxITqt U718XNsoUvJ1QGLjwnMy Z9XeDSEvtXnbFvD6y7M8 Lg9HVGHaPT26FBU6 vYO1QG81XJ64A2ZxOvgf dGFibGU+PHRhYmxlIHdp ZHRoPScxMDAlJyBzdHls QB3eGv2qJBBmNDLl sYaqlOPjGpMor0lyNNZy LImkXQ0epGzjD5JcvXF4 UBXzl2j8Sw45J30uK0Xg dXA+MQYffIK0qYN8 nN7zOhWlJxJ0HRgbG998 KwSksERhGkjnl8nee7rj gSg9DoT5ZHSehqFwgSsl XOK6g5SnIk57C09s IHdpZHRoPSIxNSUiIHZh wJwsgy8onJ5vAa9+PGNv eEH4qWF2lH0tEyTcMtD2 XZjnW077QxLzbIBl Otktg3snc4qpoQu3KmFk CNHmtlGxmWrnTVY7n1Ja Ii57U6MhdYizi4TzHxe7 gp05vNYrz8N4zDX2 Z4AjWKRsjluxpONluCuu PL6eNVEwujzeVTCnzY7e BJYqP9o3AaFkDzG7FAeb F2FyyfH7LRKmqRFf JAclGZE3N21ac1U9BQLi OSShZTO2uWL6cB8qbBan bjogbGVmdDsgdmVydGlj JTglNQaoL644HPXn cCooFZPbsQ6fMFEmoLPy dSsoSA2yWYZhbjbaTebW QkVSTElORywgTEFXUkVO Q2QkMMxtlRZ+PHRk ZRL0lLluELqyYCBpyQ2o WQBaX3b7GaXwPeQ4QBhn D5RaOKKppnrcFt37eD9e VhCeUcI4UGedY9Om ohD6NFSatXUfPLapBDD6 Z86mn0X7LIMqEFGhXVO5 bAX2fO3phLzifuaoqKWa dDsgdmVydGljYWwt YFmaK422RZLqpCmtGsV4 JdVaVkJ8LIf6J6TjFht9 EPWqpZoyHE4fzJQcBIsa Zq8xeZlazGqqLO8e QWYtjnuiUMMliP0jRCKr dWDdeUcvKW1qMRThrycj z832MiFeBGO9PHFazBRh U4BibS5qBuIfTMKk AIIoY6WfyYLhPYwzN983 ONzyIzK0BVShuyVbC3Rw GKLnhNofTnK4y8Y2Ds29 MyBZZWFyczwvdGQ+ GQPdQVL4vSjtYXldKLHb dC3lFSWhL9n7RfXrXnS6 DEhzF5JiRPTcyobcQh95 uR9xKyCxTfW3OXvo F0QxtiL0KOJezGCyJZbk JCH9X66it2X5EBMuTWIk IJU8jQL7rP5mjDpbapaw bGVmdDsgdmVydGlj XGfyJXkpR409MFYzrWlv Et2LBFU6N8HkXdq4WNCg pItiUR7ypIWlTXuhHj6m fKfjpMwfED1mCUJw bgmpQXDnjF2jDALlpYRc eDnzML9kTYVkxqutt624 MdHsGUT5SBZfuKEaR3Gu jL3sCrIkAIDyGNVd H1MqlJIjKTzkD688NQmp EiL2TJCaqoJnY0SmKDVv jBflSiC0r8O1Xn1OAwDu cnZhdGlvbjwvdGQ+ EY98eo63H5JbZfcyOca8 TQVjDXF3zOP0fC2fVZQh EUzkv4Q6lLR6S5HuwtNi bu2uf4pyDHGtEDua Q24cyDJfn1H0WNGfkUH0 PVWmxDuuUxIdcO32Vkm+ WBVnfLtcj1SdDfdrc2zk x7ucoZv2UlFoKELj sbXrsSnnRGY7y2WlLq32 A33nHZajTAUnKZJcVSZm EAYheCwovi0qeQ9hNl4+ OIPdsGG5nWN0mE7b XbCsQvN5NDqpK006PtVl tBEeIwsyp0whg5jqqVw7 IjIwJSIgdmFsaWduPSJ0 v2GsKy94O3GepAhs c9UbFut1wx66hBJot6D7 nYI8V6OcDJSbohwrmYHi rIgeIN0bANYbyyryJTQn yY6tLVGcD5z0LkLm ZpT8PYekF1PjnwB1POUc cHRuEIXwzGVAeL5wtjza q8tqnaiyIdErVNAwOSf9 RMv5WDFrsGzkInYk AHY9VmS1QHT0mMIllQ9b fBhygleuiD0hRjk+UGh5 t9kpdJUsBB6ziZK3SS14 WO85sSVsi3O0nRP8 S8RzLEGumfczwcokkQL0 MYKuPMQynQ07Ee3ydJye Ak1fMFRzHMU0DCCyjELy L0PgeZ4cEqGcIYMe XXYzK0WmdSJoGZypG482 EJwcUeD8WYHsiwDiF4Qc QVEdpCtdIbA7l7I5Vt4K YT25OT99TK90fKGk k0T1bFY0X7FbGTTezssz xvfrzNV2YYNwJLMslB75 Uc6kpStjPm8wYKZeDUP4 SBKklSBcI0RqsM6f LfLzHITaFVPlO7FfaEHe FTsmE490MJqwYhY1KZTb kjWvO3QvDDPfqIyjDlC7 j0T4Nf8BLs51CR02 GO65cRHfu0W5uYB5V4Vp UGOvlqrsejqegHW7WHAu DNHekX43Sp9mdXyvGf6q FZTvCHO2FCDihZBh K5PapP2fCpHsUFJnPEYa X6DffNTpCAyzV604LUmz IcP6YDEuuqMxY1LrTWXh xTlbXdW1b2R4Hs8C CYjfyvp1F5YaCqhwgSF+ WE35RZJsBG75qHTucRAp m2wzbPb0ZgChIOOyEWL3 vUzqYIyws7GuRFUj Y29 (more content not included)... [facility] Consent Formson 09-23-2021 Consent Forms [id number] [facility] 09-20-2021 Consent Forms [id number] [facility] MAGR Postoperative Recordon 09-20-2021 MAGR Postoperative Record MAGR Phase II Record Summary Primary Physician: DAVID AWAD DO Finalized Date/Time: 09/20/21 10:05:40 Pt. Name: SINGHZAINA D.O.B./Sex: 1950 MALE Med Rec #: [id number] Physician: DAVID AWAD DO Financial #: [id number] Pt. Type: O Room/Bed: [facility] Admit/Disch: 09/17/21 08:03:00 - 09/18/21 12:10:00 Institution: [...] Signed By: Vianca Celaya RN 09/20/21 10:05 [facility] Outside Recordson 09-20-2021 Outside Records [id number] [facility] Provider Orderson 09-20-2021 Provider Orders [id number] #1.[facility] Provider Orders [id number] #1.[facility] Telemetry Stripson 2 Telemetry Strips [id number] #1.00[facility] Electronic Messagingon 09-19 Electronic Messaging --- --- --- --- --- --- --- --- --- From: Ej (Jim), Ej To: ZAINA WINTERS Sent: 09/19/21 04:18:10 AM EDT Subject: Discharge Summary Ready to View A summary regarding your recent visit is available in the Documents section of your Health Record. Normal [facility] .Auto Diff 1on 09-18-2021 Auto Josephine % 9 % Normal 1-12 [facility] Comment on above: Performed By: #### 1 [id number], [id number], [id number] #### [facility] (DEFAULT) [address] [place] [address] Baso Abs# 0.0 x10 Normal 0.0-0.2 [facility] Comment on above: Performed By: #### 1 [id number], [id number], [id number] #### [facility] (DEFAULT) [address] [place] [address] 43149 Basophils/100 WBC (Bld) 0.0 % Low 0.2-2.0 [facility] Comment on above: Performed By: #### 1 [id number], [id number], [id number] #### [facility] (DEFAULT) [address] [place] [address] 16681 Eos Abs# 0.0 x10 Normal 0.0-0.4 [facility] Comment on above: Performed By: #### 1 [id number], [id number], [id number] #### [facility] (DEFAULT) [address] [place] [address] 76413 Eosinophils/100 WBC (Bld) 0.0 % Low 0.9-4.0 [facility] Comment on above: Performed By: #### 1 [id number], [id number], [id number] #### [facility] (DEFAULT) [address] [place] [address] 94402 Lymph Abs# 1.2 x10 Low 1.3-2.9 [facility] Comment on above: Performed By: #### 1 [id number], [id number], [id number] #### [facility] (DEFAULT) [address] [place] [address] 14910 Lymphocytes/100 WBC (Bld) 9 % Low 14-48 [facility] Comment on above: Performed By: #### 1 [id number], [id number], [id number] #### [facility] (DEFAULT) [address] [place] [address] Josephine Abs# 1.3 x10 High 0.0-0.8 [facility] Comment on above: Performed By: #### 1 [id number], [id number], [id number] #### [facility] (DEFAULT) [address] [place] [address] Neut Abs# 11.6 x10 High 1.5-9.2 [facility] Comment on above: Performed By: #### 1 [id number], [id number], [id number] #### [facility] (DEFAULT) [address] [place] [address] 58713 Neutrophils/100 WBC (Bld) 82 % Normal 44-88 [facility] Comment on above: Performed By: #### 1 [id number], [id number], [id number] #### [facility] (DEFAULT) [address] [place] [address] CBC w/ Auto Diffon 2 Erythrocyte distribution width (RBC) [Ratio] 14.0 % Normal 11.5-15.0 [facility] Comment on above: Performed By: #### 1 [id number], [id number], [id number] #### [facility] (DEFAULT) [address] [place] [address] 91904 Hematocrit (Bld) [Volume fraction] 36.8 % Normal 34.8-51.9 [facility] Comment on above: Performed By: #### 1 [id number], [id number], [id number] #### [facility] (DEFAULT) [address] [place] [address] 00578 Hemoglobin (Bld) [Mass/Vol] 11.9 g/dL Normal 11.8-17.7 [facility] Comment on above: Performed By: #### 1 [id number], [id number], [id number] #### [facility] (DEFAULT) [address] [place] [address] 22649 Instr WBC 14.2 x10 Invalid Interpretation Code [facility] Comment on above: Performed By: #### 1 [id number], [id number], [id number] #### [facility] (DEFAULT) [address] [place] [address] 54131 Man Diff? Auto Normal [facility] Comment on above: Performed By: #### 1 [id number], [id number], [id number] #### [facility] (DEFAULT) [address] [place] [address] 93437 MCH (RBC) [Entitic mass] 30 pg Normal 24-34 [facility] Comment on above: Performed By: #### 1 [id number], [id number], [id number] #### [facility] (DEFAULT) [address] [place] [address] 53246 MCHC (RBC) [Mass/Vol] 32 g/dL Normal 26-37 [facility] Comment on above: Performed By: #### 1 [id number], [id number], [id number] #### [facility] (DEFAULT) [address] [place] [address] 02616 MCV (RBC) [Entitic vol] 94 fL Normal 81-100 [facility] Comment on above: Performed By: #### 1 [id number], [id number], [id number] #### [facility] (DEFAULT) [address] [place] [address] 94904 Platelet 181 x10 Normal 138-427 [facility] Comment on above: Performed By: #### 1 [id number], [id number], [id number] #### [facility] (DEFAULT) [address] [place] [address] 79870 Platelet mean volume (Bld) [Entitic vol] 10.4 fL High 6.3-10.2 [facility] Comment on above: Performed By: #### 1 [id number], [id number], [id number] #### [facility] (DEFAULT) [address] [place] [address] 77650 RBC 3.92 x10 Normal 3.70-5.30 [facility] Comment on above: Performed By: #### 1 [id number], [id number], [id number] #### [facility] (DEFAULT) [address] [place] [address] 33812 WBC 14.2 x10 High 3.5-10.5 [facility] Comment on above: Performed By: #### 1 [id number], [id number], [id number] #### [facility] (DEFAULT) [address] [place] [address] 87058 Electrolyte Panel Standardon 09-18-2021 Anion gap [Moles/Vol] 12.0 mmol/L Normal 5.0-19.0 [facility] Comment on above: Performed By: #### 1 [id number], [id number], 5304110 #### [facility] (DEFAULT) [address] [place] [address] 85782 Chloride [Moles/Vol] 98 mmol/L Low 101-111 [facility] Comment on above: Performed By: #### 1 [id number], [id number], 9808856 #### [facility] (DEFAULT) [address] [place] [address] 32319 CO2 [Moles/Vol] 28 mmol/L Normal 21-32 [facility] Comment on above: Performed By: #### 1 [id number], [id number], 7841763 #### [facility] (DEFAULT) [address] [place] [address] 52448 Potassium [Moles/Vol] 3.8 mmol/L Normal 3.6-5.1 [facility] Comment on above: Performed By: #### 1 [id number], [id number], 9953086 #### [facility] (DEFAULT) [address] [place] [address] 47611 Sodium [Moles/Vol] 134.0 mmol/L Low 136.0-144.0 [facility] Comment on above: Performed By: #### 1 [id number], [id number], 8101924 #### [facility] (DEFAULT) [address] [place] [address] 34116 Inpatient Patient Summaryon 09-18-2021 Inpatient Patient Summary [address] [address] Patient Discharge Instructions Name: ZAINA WINTERS : 1950 Patient Address: [address] [place] [address] Primary Care Provider: Name: Jeannine Hurley After you are discharged if you find you have any questions, please, call [phone] ext [phone] to speak to a nurse. Discharge Diagnosis: Acute pain of right knee Prescription Information: If you have been given a prescription for narcotics, seek immediate medical attention if you have any difficulty breathing or any sudden status changes such as confusion and sleepiness. If you or anyone you know is experiencing suicidal thoughts, mental health, alcohol and/or drug addiction problems; contact the [facility] [place] [facility] 05/09 Crisis Hotline -Text 4HRIT oj 600059. If you received any narcotics, sedation, or [...] business decisions or sign any legal documents [facility] would like to thank you for allowing us to assist you with your healthcare needs. The following includes patient education materials and information regarding your injury/illness. ZAINA WINTERS has been given the following list of follow-up instructions, prescriptions, and patient education materials: Follow-up Instructions With: Address: When: Marina Redd [address] [place] [address], [address] [place] [address] [facility] (1) 10/01/2021 11:00 AM Medications During the [...] to tolerance (more content not included)... Normal [facility] Pharmacy Noteon 09-18-2021 Pharmacy Note I have [...] [Verified on: 09/18/2021 10:36 EDT] Emiliano Montgomery [facility] Progress Note - Nurseon 08-0 Progress Note - Nurse Discharged to home. Prescriptions and instructions reviewed with and given to pt. He verbalized understanding. Taken to awaiting vehicle via wheelchair. All belongings sent with pt. [Electronically Signed on: 09/29/2021 14:49 EDT] Mildred David RN [Verified on: 09/29/2021 14:49 EDT] Mildred David RN [facility] Progress Note - Nurse POC discussed with pt. Educated on safety and ADL care once discharge home. He verbalized understanding [Electronically Signed on: 09/29/2021 14:49 EDT] Mildred David RN [Verified on: 09/29/2021 14:49 EDT] Mildred David RN [facility] Anesthesia Noteon 09-17-2021 Anesthesia Note Patient: ZAINA WINETRS Age: 70 years Sex: MALE : 1950 Associated Diagnoses: None Author: Eugene Castaneda MD Postoperative Information Post Operative Note: Operative Day. Anesthetic utilized: General. 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 Aftercare following left knee joint replacement surgery / SNOMED CT 161068928 / Confirmed Resolved: COVID-19 / SNOMED CT 9784213883 Resolved: Diabetes / SNOMED CT 518189206 Physical Examination VS/Measurements Vital Signs (last 24 [...] on: 09/17/2021 14:12 EDT] Eugene Castaneda MD [facility] Anesthesia Note Patient: ZAINA WINTERS [...] All Problems Atrial fibrillation / SNOMED CT 62490286 / Confirmed FH: hypertension / SNOMED CT 368791737 / Confirmed History of post-polio syndrome / SNOMED CT 498855856 / Confirmed Aftercare following left knee joint replacement surgery / SNOMED CT 901699997 / Confirmed Resolved: COVID-19 / SNOMED CT 7313630383 Resolved: Diabetes / SNOMED CT 146148400 Histories Family History: CA - Cancer of colon Grandparent Heart attack Mother Grandparent Tobacco user Mother Father Brother Procedure history: Arthroplasty of knee using cement ([id number]) on 03/02/2021 at 70 Years. Back ([id number]). Comments: 02/04/2021 10:08 Oliva Van RN surgery [...] Review / Management Laboratory Results Plan [place] [employer]esthesiologists#(A SA) physical status classification: Class III. Anesthetic Preoperative Plan Anesthesia: General. , Regional adductor canal block for post op pain control per surgeon request. Anesthetic plan, risks, benefits, and alternatives discussed with the patient and/or family. Patient verbalized understanding. [Electronically Signed on: 09/17/2021 11:19 EDT] Eugene Castaneda MD [Verified on: 09/17/2021 11:19 EDT] Eugene Castaneda MD [facility] MAGR Intraoperative Recordon 09-17-2021 MAGR Intraoperative Record MAGR Intra-Op Record Summary Primary Physician: DAVID AWAD DO Finalized Date/Time: 09/17/21 14:17:42 Pt. Name: ZAINA WINTERS/Sex: 1950 MALE Med Rec #: [id number] Physician: DAVID AWAD DO Financial #: [id number] Pt. Type: D Room/Bed: [facility] Admit/Disch: 09/17/21 08:03:00 - Institution: [...] Role Performed Surgeon - Primary Anesthesiologist of Outside Sales Representative Insurance Record Time In 09/17/21 10:35:00 09/17/21 10:17:00 09/17/21 10:17:00 Time Out 09/17/21 13:32:00 09/17/21 14:10:00 09/17/21 14:10:00 Procedure Arthroplasty Knee Arthroplasty Knee Arthroplasty Knee Total(Right, Knee) Total(Right, Knee) Total(Right, Knee) Last Modified By: Zhanna Urrutia RN, Erica RN Baumer, Erica RN 09/17/21 14:17:37 09/17/21 14:17:37 09/17/21 14:17:37 Entry 4 Entry 5 Entry 6 Case Attendee Sue Rodriguez SCRUFF WORKER Marjorie Esteves CST, PA-C, Matthew J Role Performed Rigger Up Scrub Personnel Physican Pharmacist Intern Time In 09/17/21 10:17:00 09/17/21 10:17:00 09/17/21 [...] By Zhanna Urrutia RN Scrub 10% Povidone-Iodine Fountain Prep Area (more content not included)... [facility] MAGR Intraoperative Record MAGR Intra-Op Record Summary Primary Physician: Finalized Date/Time: 09/17/21 10:39:41 Pt. Name: ZAINA WINTERS Carmen /Sex: 1950 MALE Med Rec #: [id number] Physician: DAVID AWAD DO Financial #: [id number] Pt. Type: D Room/Bed: [facility] Admit/Disch: 09/17/21 08:03:00 - Institution: [...] RN, Brayan Altamirano Role Performed Anesthesiologist of Outside Sales Representative Insurance Outside Sales Representative Insurance Record Time In 09/17/21 09:55:00 09/17/21 09:55:00 [...] last 60 minutes Last Modified By: Vianca Celaay RN 09/17/21 10:35:53 Patient Positioning MAGR Pre-Care [...] By (more content not included)... [facility] MAGR PACU Record Summary Primary Physician: DAVID AWAD DO Finalized Date/Time: 09/17/21 15:19:58 Pt. Name: ZAINA WINTERS Carmen /Sex: 1950 MALE Med Rec #: [id number] Physician: DAVID AWAD DO Financial #: [id number] Pt. Type: D Room/Bed: 229/1 Admit/Disch: 09/17/21 08:03:00 - Institution: PACU Case Times MAGR Entry 1 In PACU I 09/17/21 14:10:00 Discharge from PACU 09/17/21 15:15:00 I Last Modified By: Vianca Celaya RN 09/17/21 15:19:57 Finalized By: Vianca Celaya RN Document Signatures Signed By: Vianca Celaya RN 09/17/21 15:19 [facility] 0 09-17-2021 MAGR Preoperative Record MAGR Pre-Op Record Summary Primary Physician: DAVID AWAD DO Finalized Date/Time: 09/17/21 10:43:23 Pt. Name: ZAINA WINTERS /Sex: 1950 MALE Med Rec #: [id number] Physician: DAVID AWAD DO Financial #: [id number] Pt. Type: D Room/Bed: [facility] Admit/Disch: 09/17/21 08:03:00 - Institution: Pre-Op Case [...] Signed By: Vianca Celaya RN 09/17/21 10:43 [facility] Nutrition Noteon 09-17-2021 Nutrition Note [...] with in house available Ensure Compact BID. [facility] Progress Note - Nurseon Progress Note - Nurse IV fluids stopped for good PO intake at this time [Electronically Signed on: 09/24/2021 15:45 EDT] Raquel Duvall RN [Verified on: 09/24/2021 15:45 EDT] Raquel Duvall RN [facility] XR Knee One or Two [...] MD 09/17/21 4:07 pm Technologist: Abilio AMIN [facility] Progress Note - Nurseon Progress Note - Nurse Pre-op phone call complete. Reviewed arrival time of 0830 on Monday09/17/2021 and pre-op instructions with pt. Pt voiced understanding and is without further questions or concerns at this time. [Electronically Signed on: 09/16/2021 09:25 EDT] Marley SUTTON Brayan Altamirano [Verified on: 09/16/2021 09:25 EDT] Marley SUTTON Brayan Altamirano Normal [facility] 2019 Novel Coronavirus (CoVI D-19), JULISSA LCon 09-14-2021 SARS-CoV-2 (COVID-19) RNA JULISSA+probe Ql (Unsp spec) Not detected Invalid Interpretation Code Not Detected [facility] Comment on above: Order Comment: [id number] Result Comment: This nucleic acid amplification test was developed and its performance characteristics determined by [employer]. Nucleic acid amplification tests include RT- PCR [...] detected) result in this assay. Performed At: [address] [id number] Zay Landa PhD Ph:[phone] Performed By: #### 6 [id number] #### [facility] (DEFAULT) [address] [place] [address] Coding Summaryon 09-14-2021 Coding Summary [facility] PijnybwrVLx2tKv+PGhl YWQ+KC9FCNEqS02kuQXn uC1VB2dZYN9HHRTFRJGV NV5YYL3reDC2GIkcV4Sz biAv RzffkIJkDR80CYg7TUP8 oJulGImmqE1zsNZvV8j7 GoVaQL04wG23OMwaQXJs IbX0VfUkxnicaLUa J9lnRkEcoNVvIgk+PHRh YmxlIHdpZHRoPScxMDAl HhFgtCsaLJ1cVq8kRMQt LWNvbGxhcHNlOiBj o7kcYDTcYUczVK8ifLfh K3ItoMF0KEJva9p8Ut17 dHI+YDWgRDK8lQxkSLrj c409WcCqe2wbHKF0 yJWbCTgvJXM3X45ct5L4 YWFqAVTxYVF8aPZ5jZ1l cDsesilfO0FiiOGoOyT7 GZP9pVXrnL0rkYsn bjdviB5jJvf+G34PHR1T PTMDRX6DFzx2G9OrCswj dHI+TX47MUOvPN01kTJn iSBht4uueKp7JmRk HPFmRHB6cThnPGpkx7Qd QAGcQ47iwBIqb9K3YKOv dNmclOFvEqMlnAS2xU5l ZXofvzyjy0gdclnf Mcibu9qfrq86kT31V69m RTszZKMkUAS9KECmPJSt tCafwo4ayJ1rZb3+IDxj q4nns8piuKq9TvZv GRFysjCdwWipMKA3r4Ag Bh13K9VltZerp5HxHvs7 ue43iDUmw3K2wMB2OQpy CMZziL8gODgeIdZ1 DPFwEaZeuZ48gQJxOUkw Ds3naWggwCseSR6pSXGb iwofOTOqfF5rNMVpmJQo sYmjSG8sRCKujzhn w873EhRcMDK9WIQnoYKe V6GwfR0bZvZgWAAaZBNd D4SqeQCjZCelK842QDts FrD9AIAjfsMnM8Mo FJTbtBynZxG7p2U3Ah8W c8BoxbdjLXI5DFxoGSN8 AgEaZqSvCoN3H8RaXnu2 KYQhySdvUP1oV5Ij FTMljtasjvzqmBV0QIAj WFTjnB60uHUbYCosCj0m q6Y7m614ZJIaHVRjtV44 Ke1apBctSYSeoLCY xH3wjtcrz6jgndkuEzOw RVIgWCr7FSo0UEJpoAms JzJeUZA3MlL1PVA5iUTq uM5jqGvdkejuvN5f Oyc+S11cmO9pCWB0KOZ5 vpsgOYWdlhZbTF03JZ19 X9PuFawpfELvqSL+PGRp jrWwjWsnZL6cMqNf w0wjs8LbLBtfR6MuCXAe RFfhXas6KMQcOXS4cSC7 rQ3xPMUuCFolr3B4dXK8 P4TjrnGkiy4vp0oh YSIuKEsnW57baWGze6H9 HYWdaQZ2YAYfdErmXeQi tH70Emz+NNJdaKdjw4Xa Inolu2yob8mcsEa4 IjMwJSIgdmFsaWduPSJ0 a0CbBl89K26iKHooQVAq AKMhZPPxSZBrpQpgbl3h oD1oAy9+PGNvbCB3 iEU5dP4vXNGgWvW2XMar V910GmMdxCKeNkmnu3jp m5bwnCs0GpLiVYPvoiAo kDaaRZE5y6HaNm12 L65nSWklHTUsFXDiWVGr IFOwkDmyag8npJ1gQo6+ RL6vg5aaeb98lH45mFA+ XUVzGQV4iEvcNImx KEXyrT9xNCccBeB3YAIq LmNfpE56yECyTMlnGz5s sQgtzChdBH5mCSPtispb o579OsSnd7ydPHSd gNZrZOrwFIG5B04sg9N3 HVFgDFXtCWO8fGW0mQ3t bGlnbjogbGVmdDsgdmVy bGifLWowHEmpZ649 IHRvcDsnPlBhdGllbnQg RyXgBHv3Y5DwRkk2UATn xUyrLE2arGLgUIwcLu6v iWkykCrmQR8oLJTy ydvcq664UiLqo0lgWQKz bXQvISqhJII5P77ep7Y6 MGVdSNUnXLW1dQC1vM6t bGlnbjogbGVmdDsg ycJvsXhoDYgsTXhqY783 IHRvcDsnPkJpcnRoIERh gPE2RU33KJ75aLDqf1Z1 gZP1Z8KdPOOfplsn fdioeVB7QMRvCRKyeI22 Ch1aqWhtEu0jAFZoENY4 PUSjlGPiD9XyjE1nTfLj ESFdJZJtZ8DosECn RNeqT076ETtdYaQ4HFXk pgMwF2FtFHAmeCkuAhN8 l7J9Qv4VL9C1WV21FK03 sDTbr8L1iQU4O4Mu QYTzwengcmpxyGA8NOZp SMMqnX35Ma7wuThtRp2d VDXoEPW4CHSljNFwH2Sm mV8jFeWpRHVrEGVn I5ZajHXbEJrhL326XLyh WuZ1CUGnlfRzH4StMZUl oUtvEsU9c5Y3Ij4VSAw4 GT27FJ56eZDrd9K2 qIY6U5BiNAPoxtiwuaru vMY6BRWeFNBuiK77Lz8e kQuvEa0zWWVqMBD2KAVl wLRjM5GkdG6fFwGa PAWlWVCeT4BtbUTcKQyh D080FVhkWsM9FACufoBi U6MfLSBtrNgxGiG2o1N4 Am0SXZWrKC30VRS2 xVZ4QB62MY19U9GhMrpz dGFibGU+PHRhYmxlIHdp ZHRoPScxMDAlJyBzdHls EJ5xGi4lFNLmWJKi kGndmZIcYdUmv9vbVXEi CEhuEH2qsXrkM5VmrFF0 UVWdv5t5Bg78S86cA6Pf dXA+SKIyqMI3oZZ4 gU6rKaHoXeO4KJgjQ967 BbXzmIMqGvclt7usu6va vIz0WzK4IUQbpuApjGpw MMJ9i2EhBb98U43c IHdpZHRoPSIxNSUiIHZh dOzrkm3phJ9iQj3+PGNv uEV4yTX5qO6gHmUnCiE1 OVneR893QvWxvYLq Eylyo3iim6ssrKa7GrQy CGRfnpFvbQltVHS3p7Fl Ev19D6HrySahe5HdXix0 jc02yKDsb8D8dTQ5 Z7NjKDAimjzdmOYejLry II5vIEXgnrtuIPNtdQ5v DHTpC3o7PgWtMqN3LEsx Q7DpkkX0ALDqaRLd EZvuLVF8S89xk1Z2KTNf EPSiVUQ4nEP6hX0fqNvs bjogbGVmdDsgdmVydGlj MSnyGFavM456MLJm lFueIPNsnS1kPZIovREa jJlxEG5fUUDpbtgvZmvJ QkVSTElORywgTEFXUkVO I2GnLPosdBB+PHRk EGO0eDlhDWdcJPLwwQ8h QNWiJ0s8NmXiKiB7BBmn G9JlYEHlqqjzOz13cX9c AhJmGaT7CTgaI4Oa dcL0FKLshPGcGPucZAE1 F68pv5H9MQTvZWCfGJZ2 hDY2eN7gkNkddqxxvUBj dDsgdmVydGljYWwt MEhnD985ZMWfbMvzXoG3 VaGtZpQ3BVb2C0HgZhl6 ZPBjzBnmOA1xhKOdXJaf Ar3qcCvngGwnRT7m JQTirrtgUNGygT6hVCBn iIZxnPikWJ1uIPWblruz m411SfOaGFS6LRFpoMXe K8RtpE5zVwIsRWKf OAVuM4TjlIQrUQcyT844 SCmsJxA5KRHslaLeE3Xc ZVJksIylHoF6f4J7Mv91 MiBZZWFyczwvdGQ+ RJIcEOI1cNomKZuiFTUg xL0rXCIfN7s8YoMxZrC3 AVljJ6PgUYMkvzvjYi59 xC8zAbAbZkE6DQqc K9MiqqN6BCRbwOMbHYhv RNR9W10hm7D5KXDaJIHb UVB4jCZ5jF8yfGsvdrap bGVmdDsgdmVydGlj RWtyLAavH279QTAhhLxq Kq4LQFF8N0TzShq2KZDj jDuwMZ1mtUFjRIaeTm5h jEjobTgwOL0dTBAr mvwvTPPbyW2hWQEavQWc bXvnBE9xFFCydojzp096 UvBcSII8LJFjxBTlN6Jf oM5gOpXaCXXfEWEt O2HpgOGkLDicO923GBus PkH7QSYetwCtI9DfQXRf eHifClX7p3J8Fy4DNDzx dGQ+UX32ou52S7Qt YinbYce9LZKvSEF3qKD1 nX6rAJUqEBcmk2K6oLX0 P2WwbtUbce2de8aiDEBd NSiwT78izLFyg6K9 WZGhuXB4JXMbuAptOtVn zA10Jch+XGRrzGlib1Bn Xtebe1nhh7lmxAb8GvJp JSIgdmFsaWduPSJ0 f7MpTf87P78rSCsmKIQc HIWuQHVuPKTgqKsanx3h eF7yHl6+NUIrrIX3xXN3 wQ2bKhWfIxF3KOqe V880MbVhbPHcVmupd2ce x7bmaSk9LsYmHDZvfiCd qSofZOH3t4FtYz65C3Lm pCqpk1XfAbf1qh69 rBSpz8P7eTO7Z7KhKJDs haxwgXCjaMqvJM5oAPQi mmsmSXYajA1zHGOxC0m6 XlIcNqH2LOzsK0Yk kqH8TKBucFEwCVGxyHJG wN3twhkdh6okdzyiHsPv JIYhGAi3MJg8VGFgbUdq DvOzBRA3ZcD1KLS0 wIOcaR5xaAyuwficqY1x Oyc+HRa6t7oohFTiAU4w jFP1BM55CK28oDXog7C6 uHP3N9XjXGXblcvv oizhlEX6KISkNMJfqZ86 Zm4lkDlnCx8aNEWzAIQ5 GVYxqJLfL9NadC8xXgMh RCHyIMJkV3ZbiWFt AZnyG074VHrmVzO5SWZw bdCmN8NxMZOlcFzjMyJ7 t0S9Mo2JHL77JH77VW08 hEHrr2X7rHY5F1Rr SIKcvpbqczuhtYV8XULy JDVuqT05Xk6ufOyzHe0o JZFcKSB6BITsiUSrG6Ah iZ1mIcXjUWYpVZLp H2RntUAwYGjtN176SUzz KaG2BWCozmOlE6UsVUGz gTesItV0d5C2Wb7AUt23 GV56BW24zCXow5V6 nCR7J9MfEKUvkvotljmp tZE8GEBkVFPycE81Md6z lHiyPq4cTCEvXUB5BIAw qIDoN6AhuI9dZfNy MJQvRNYwD4UhlRLeNGxo O945TNvpYkM8WMPqglFc K0OhCEFylSwbBtQ8e8W2 Rj6MHVqvnfe9C4Wj PjwvdHI+CY74QHXkLV33 bQYsuLXjv2xicPi0KgCr PQSaTTU0cSnaGNfmp4Gc BFGcU64svWDjn6L0 IGN (more content not included)... [facility] C Urineon 09-03-2021 C Urine <10,000 cfu/ml [facility] Comment on above: Performed By: #### 6 [id number] ####[facility] (DEFAULT)[address] [place] [address] 72457 Progress Note - Nurseon 08-14 Progress Note - Nurse PAT chart for 09-17-2021 surgery reviewed per anesthesiologistDr Mccauley- no additional orders received. [Electronically Signed on: 09/02/2021 13:45 EDT] Rita Molina RN [Verified on: 09/02/2021 13:45 EDT] Rita Molina RN [facility] Provider Orderson 09-02-2021 Provider Orders [id number] #[id number] [facility] .Auto Diff 1on 09-01-2021 Auto Josephine % 9 % Normal 02-24 [facility] Comment on above: Performed By: #### 1 [id number], [id number], [id number] ####[facility] (DEFAULT)[address] [place] [address] 54975 Baso Abs# 0.0 x10 Normal 0.0-0.2 [facility] Comment on above: Performed By: #### 1 [id number], [id number], [id number] ####[facility] (DEFAULT)[address] [place] [address] 83752 Basophils/100 WBC (Bld) 0.6 % Normal 0.2-2.0 [facility] Comment on above: Performed By: #### 1 [id number], [id number], [id number] ####[facility] (DEFAULT)[address] [place] [address] 94474 Eos Abs# 0.0 x10 Normal 0.0-0.4 [facility] Comment on above: Performed By: #### 1 [id number], [id number], [id number] ####[facility] (DEFAULT)[address] [place] [address] 11042 Eosinophils/100 WBC (Bld) 0.7 % Low 0.9-4.0 [facility] Comment on above: Performed By: #### 1 [id number], [id number], [id number] ####[facility] (DEFAULT)[address] [place] [address] 84952 Lymph Abs# 2.2 x10 Normal 1.3-2.9 [facility] Comment on above: Performed By: #### 1 [id number], [id number], [id number] ####[facility] (DEFAULT)[address] [place] [address] 17639 Lymphocytes/100 WBC (Bld) 31 % Normal 14-48 [facility] Comment on above: Performed By: #### 1 [id number], [id number], [id number] ####[facility] (DEFAULT)[address] [place] [address] 25041 Josephine Abs# 0.7 x10 Normal 0.0-0.8 [facility] Comment on above: Performed By: #### 1 [id number], [id number], [id number] ####[facility] (DEFAULT)[address] [place] [address] 15244 Neut Abs# 4.1 x10 Normal 1.5-9.2 [facility] Comment on above: Performed By: #### 1 [id number], [id number], [id number] ####[facility] (DEFAULT)[address] [place] [address] 17620 Neutrophils/100 WBC (Bld) 58 % Normal 44-88 [facility] Comment on above: Performed By: #### 1 [id number], [id number], [id number] ####[facility] (DEFAULT)[address] [place] [address] 70941 [facility] Standardon 09-01-2021 eGFR Non AA >60 Invalid Interpretation Code [facility] Comment on above: Performed By: #### 1 [id number], [id number], [id number] ####[facility] (DEFAULT)[address] [place] [address] 16441 eGFR AA >60 Invalid Interpretation Code [facility] Comment on above: Result Comment: [employer] korina Kidney disease could be indicated at eGFRs of less than 60 ml/min/1.73m2. Kidney Failure is indicated at less than 15 ml/min/1.73m2 Performed By: #### 1 [id number], [id number], [id number] ####[facility] (DEFAULT)[address] [place] [address] 92645 Anion gap [Moles/Vol] 12.0 mmol/L Normal 5.0-19.0 [facility] Comment on above: Performed By: #### 1 [id number], [id number], [id number] ####[facility] (DEFAULT)[address] [place] [address] 05838 Calcium [Mass/Vol] 9.7 mg/dL Normal 8.9-10.3 [facility] Comment on above: Performed By: #### 1 [id number], [id number], [id number] ####[facility] (DEFAULT)[address] [place] [address] 25385 Chloride [Moles/Vol] 102 mmol/L Normal 101-111 [facility] Comment on above: Performed By: #### 1 [id number], [id number], [id number] ####[facility] (DEFAULT)[address] [place] [address] 05765 CO2 [Moles/Vol] 29 mmol/L Normal 21-32 [facility] Comment on above: Performed By: #### 1 [id number], [id number], [id number] ####[facility] (DEFAULT)[address] [place] [address] 10546 Creatinine [Mass/Vol] 0.94 mg/dL Normal 0.90-1.30 [facility] Comment on above: Performed By: #### 1 [id number], [id number], [id number] ####[facility] (DEFAULT)[address] [place] [address] 64268 Glucose [Mass/Vol] 109.0 mg/dL Normal 74.0-118.0 [facility] Comment on above: Performed By: #### 1 [id number], [id number], [id number] ####[facility] (DEFAULT)[address] [place] [address] 32035 Osmolality 281 mOsm/L Invalid Interpretation Code [facility] Comment on above: Performed By: #### 1 [id number], [id number], [id number] ####[facility] (DEFAULT)[address] [place] [address] 44548 Potassium [Moles/Vol] 4.1 mmol/L Normal 3.6-5.1 [facility] Comment on above: Performed By: #### 1 [id number], [id number], [id number] ####[facility] (DEFAULT)[address] [place] [address] 45709 Sodium [Moles/Vol] 139.0 mmol/L Normal 136.0-144.0 [facility] Comment on above: Performed By: #### 1 [id number], [id number], [id number] ####[facility] (DEFAULT)[address] [place] [address] 16351 Urea nitrogen [Mass/Vol] 21 mg/dL Normal 8-26 [facility] Comment on above: Performed By: #### 1 [id number], [id number], [id number] ####[facility] (DEFAULT)[address] [place] [address] 65372 Urea nitrogen/Creatinine [Mass ratio] 22.0 mg/mg High 4.6-16.2 [facility] Comment on above: Performed By: #### 1 [id number], [id number], [id number] ####[facility] (DEFAULT)[address] [place] [address] 60084 CBC w/ Auto Diffon 2 Erythrocyte distribution width (RBC) [Ratio] 14.0 % Normal 11.5-15.0 [facility] Comment on above: Performed By: #### 1 [id number], [id number], [id number] #### [facility] (DEFAULT) [address] [place] [address] Hematocrit (Bld) [Volume fraction] 45.0 % Normal 34.8-51.9 [facility] Comment on above: Performed By: #### 1 [id number], [id number], [id number] #### [facility] (DEFAULT) [address] [place] [address] Hemoglobin (Bld) [Mass/Vol] 14.5 g/dL Normal 11.8-17.7 [facility] Comment on above: Performed By: #### 1 [id number], [id number], [id number] #### [facility] (DEFAULT) [address] [place] [address] Instr WBC 7.0 x10 Invalid Interpretation Code [facility] Comment on above: Performed By: #### 1 [id number], [id number], [id number] #### [facility] (DEFAULT) [address] [place] [address] Man Diff? Auto Normal [facility] Comment on above: Performed By: #### 1 [id number], [id number], [id number] #### [facility] (DEFAULT) [address] [place] [address] 52674 MCH (RBC) [Entitic mass] 30 pg Normal 24-34 [facility] Comment on above: Performed By: #### 1 [id number], [id number], [id number] #### [facility] (DEFAULT) [address] [place] [address] 82587 MCHC (RBC) [Mass/Vol] 32 g/dL Normal 26-37 [facility] Comment on above: Performed By: #### 1 [id number], [id number], [id number] #### [facility] (DEFAULT) [address] [place] [address] MCV (RBC) [Entitic vol] 93 fL Normal 81-100 [facility] Comment on above: Performed By: #### 1 [id number], [id number], [id number] #### [facility] (DEFAULT) [address] [place] [address] Platelet 216 x10 Normal 138-427 [facility] Comment on above: Performed By: #### 1 [id number], [id number], [id number] #### [facility] (DEFAULT) [address] [place] [address] 33333 Platelet mean volume (Bld) [Entitic vol] 10.2 fL Normal 6.3-10.2 [facility] Comment on above: Performed By: #### 1 [id number], [id number], [id number] #### [facility] (DEFAULT) [address] [place] [address] 32931 RBC 4.86 x10 Normal 3.70-5.30 [facility] Comment on above: Performed By: #### 1 [id number], [id number], 6471135 #### [facility] (DEFAULT) [address] [place] [address] 56146 WBC 7.0 x10 Normal 3.5-10.5 [facility] Comment on above: Performed By: #### 1 [id number], [id number], [id number] #### [facility] (DEFAULT) [address] [place] [address] 88370 XR Bone Length Studies [facility] 09-01-2021 XR Bone Length Studies [...] MD 09/04/21 4:45 pm Technologist: Elysia SIMONS [facility] Complete Blood Count with Au to Diffon 06-09-2021 Basophils (Bld) [#/Vol] 0.04 10*3/uL Normal 0.00-0.[address] [facility] Specialist Comment on above: Performed By: #### C FRANCISCA, CBCAD #### [facility] [address], [place] [id number] Basophils/100 WBC (Bld) 0.6 % Normal [facility] Comment on above: Performed By: #### C MP, CBCAD #### [facility] [address], [place] [id number] Eosinophils (Bld) [#/Vol] 0.11 10*3/uL Normal 0.02-0.[address] [facility] Comment on above: Performed By: #### C MP, CBCAD #### [facility] [address], [place] [id number] Eosinophils/100 WBC (Bld) 1.7 % Normal [facility] Comment on above: Performed By: #### C MP, CBCAD #### [facility] [address], [place] [id number] Erythrocyte distribution width (RBC) [Ratio] 13.7 % Normal 11.0-15.[address] [facility] Comment on above: Performed By: #### C MP, CBCAD #### [facility] [address], [place] [id number] Hematocrit (Bld) [Volume fraction] 43.3 % Normal 38.5-50.[address] [facility] Special[facility] Comment on above: Performed By: #### C MP, CBCAD #### [facility] [address], [place] [id number] Hemoglobin (Bld) [Mass/Vol] 14.1 g/dL Normal 13.0-17.[address] [facility] Comment on above: Performed By: #### C MP, CBCAD #### [facility] [address], [place] [id number] Lymphocytes (Bld) [#/Vol] 1.7 10*3/uL Normal 0.9-3.[address] [facility] Comment on above: Performed By: #### C MP, CBCAD #### [facility] [address], [place] [id number] Lymphocytes/100 WBC (Bld) 26.3 % Normal [facility] Comment on above: Performed By: #### C MP, CBCAD #### [facility] [address], [place] [id number] MCH (RBC) [Entitic mass] 29.1 pg Normal 27.0-33.[address] [facility] Special[facility] Comment on above: Performed By: #### C MP, CBCAD #### [facility] [address], [place] [id number] MCHC (RBC) [Mass/Vol] 32.6 g/dL Normal 32.0-36.[address] [facility] Comment on above: Performed By: #### C MP, CBCAD #### [facility] [address], [place] [id number] MCV (RBC) [Entitic vol] 90 fL Normal 80-[address] [facility] Special[facility] Comment on above: Performed By: #### C MP, CBCAD #### [facility] [address], [place] [id number] Monocytes (Bld) [#/Vol] 0.6 10*3/uL Normal 0.2-0.[address] [facility] Special[facility] Comment on above: Performed By: #### C MP, CBCAD #### [facility] [address], [place] [id number] Monocytes/100 WBC (Bld) 9.6 % Normal [facility] Comment on above: Performed By: #### C MP, CBCAD #### [facility] [address], [place] [id number] Neutrophils (Bld) [#/Vol] 3.9 10*3/uL Normal 1.5-7.[address] [facility] Comment on above: Performed By: #### C MP, CBCAD #### [facility] [address], [place] [id number] Neutrophils/100 WBC (Bld) 61.5 % Normal [facility] Comment on above: Performed By: #### C MP, CBCAD #### [facility] [address], [place] [id number] Platelet mean volume (Bld) [Entitic vol] 11.30 fL Normal 7.50-12.50 [facility] Comment on above: Performed By: #### C MP, CBCAD #### [facility] [address], [place] [id number] Platelets (Bld) [#/Vol] 222 10*3/uL Normal 140-400 [facility] Comment on above: Performed By: #### C MP, CBCAD #### [facility] [address], [place] [id number] RBC (Bld) [#/Vol] 4.84 10*6/uL Normal 4.20-5.80 [facility] Specialist Comment on above: Performed By: #### C MP, CBCAD #### [facility] [address], [place] [id number] RDW-SD 44.9 fL Normal 37.0-50.[address] [facility] Special[facility] Comment on above: Performed By: #### C MP, CBCAD #### [facility] [address], [place] [id number] WBC (Bld) [#/Vol] 6.4 10*3/uL Normal 3.8-11.0 [facility] Counselor Comment on above: Performed By: #### C MP, CBCAD #### [facility] [address], [place] [id number] Comprehensive Metabolic Pane chikis 06-09-2021 Albumin [Mass/Vol] 4.6 g/dL Normal 3.6-5.1 [facility] Counselor Comment on above: Performed By: #### C MP, CBCAD #### [facility] [address], [place] [id number] Albumin/Globulin [Mass ratio] 2.2 {ratio} Normal 1.0-2.[address] [facility] Comment on above: Performed By: #### C MP, CBCAD #### [facility] [address] [place], [place] [id number] ALP [Catalytic activity/Vol] 80 U/L Normal 40-129 [facility] Comment on above: Performed By: #### C MP, CBCAD #### [facility] [address] [place] [id number] ALT [Catalytic activity/Vol] 16 U/L Normal 9-46 [facility] Comment on above: Result Comment: 01/13 Female reference range changed. Performed By: #### C MP, CBCAD #### [facility] [address] [facility] [place] [place] [id number] Anion gap [Moles/Vol] 17 mmol/L Normal 12-20 [facility] Comment on above: Result Comment: Effe ctive 02/18/2019 reference range changed. Performed By: #### C MP, CBCAD #### [facility] [address] [facility] [place] [id number] AST [Catalytic activity/Vol] 22 U/L Normal 10-40 [facility] Comment on above: Performed By: #### C MP, CBCAD #### [facility] [address] [facility] [place] [id number] Bilirubin [Mass/Vol] 0.40 mg/dL Normal 0.30-1.20 [facility] Comment on above: Performed By: #### C MP, CBCAD #### [facility] [address] [facility] [place] [id number] BUN/CREA 20 Ratio Normal 6-22 [facility] Comment on above: Performed By: #### C MP, CBCAD #### [facility] [address] [facility] [place] [id number] Calcium [Mass/Vol] 9.4 mg/dL Normal 8.6-10.2 [facility] Comment on above: Performed By: #### C MP, CBCAD #### [facility] [address] [place] [id number] Chloride [Moles/Vol] 101 mmol/L Normal 98-107 [facility] Comment on above: Performed By: #### C MP, CBCAD #### [facility] [address] [place], [place] [id number] CO2 [Moles/Vol] 26 mmol/L Normal 20-[address] [facility] Specialist Comment on above: Performed By: #### C MP, CBCAD #### [facility] [address], [place] [id number] Creatinine [Mass/Vol] 0.7 mg/dL Normal 0.7-1.[address] [facility] Special[facility] Comment on above: Performed By: #### C MP, CBCAD #### [facility] [address], [place] [id number] eGFRAA 132 mL/min/1.73m2 Normal >60 [facility] Specialist Comment on above: Performed By: #### C FRANCISCA, CBCAD #### [facility] [address], [place] [id number] eGFRNAA 109 mL/min/1.73m2 Normal >60 [facility] Comment on above: Performed By: #### C FRANCISCA, CBCAD #### [facility] [address], [place] [id number] Globulin (S) [Mass/Vol] 2.1 g/dL Normal 1.9-3.[address] [facility] Specialist Comment on above: Performed By: #### C FRANCISCA, CBCAD #### [facility] [address], [place] [id number] Glucose [Mass/Vol] 98 mg/dL Normal 65-99 [facility] Specialist Comment on above: Result Comment: For FASTING Glucose --- ADA reference ranges: Normal 65-99 mg/dl Prediabetes 100-125 Diabetes >/= 126 Performed By: #### C MP, CBCAD #### [facility] [address], [place] [id number] Potassium [Moles/Vol] 3.9 mmol/L Normal 3.5-5.[address] [facility] Special[facility] Comment on above: Performed By: #### C MP, CBCAD #### [facility] [address], [place] [id number] Protein [Mass/Vol] 6.7 g/dL Normal 6.1-8.1 [facility] Benefits Counselor Comment on above: Performed By: #### C MP, CBCAD #### [facility] [address], [place] [id number] Sodium [Moles/Vol] 139 mmol/L Normal 135-146 [facility] Comment on above: Performed By: #### C MP, CBCAD #### [facility] [address], [place] [id number] Urea nitrogen [Mass/Vol] 14 mg/dL Normal 7-25 [facility] Comment on above: Performed By: #### C MP, CBCAD #### [facility] [address], [place] [id number] Hemoglobin A1Con 06-09-2021 EAG 136.98 Normal [facility] Comment on above: Performed By: #### A 1C #### [facility] [address], [place] [id number] HbA1c (Bld) [Mass fraction] 6.4 % High 4.0-6.0 [facility] Comment on above: Performed By: #### A 1C #### [facility] [address], [place] [id number] Q - B-TYPE NATRIURETIC (BNP) on 06-09-2021 Natriuretic peptide B (Bld) [Mass/Vol] 33 pg/mL Normal <100 [facility] Comment on above: Order Comment: [facility] performed at: [facility], [facility], [address] [place] [address], [address] [place] [address], [address], Terminal Worker: Curtis Lyons MD [facility] Collection Date/Time: [id number] [facility] Results Received Date/Time: [facility] Reported Date/Time: FASTING: NO Result Comment: BNP levels increase with age in the general population with the highest values seen in individuals greater than 75 years of age. Reference: J. Am. Cheryl. Cardiol. 2002; 40:976-982. Performed By: #### 3 [id number] #### [facility] [address] [place] [address] Coding Summaryon 03-16-2021 Coding Summary HTMLBase 64 CgwhkqylXNz5zJn+PGhl YWQ+AG4AOYNxX32fgHOq yK5GU8qXMC0AKRQZYSDS IM5OFV2kqZL5GSmtU1Rs biAv AcjddEFaYM91BRh4TYL6 wYuzDLnrlP9xdKZeE3j2 LwHeIO77uF20EGvaDNKe LaR7UjVxvepkfMAa W1prDcRjiJSjJtl+PHRh YmxlIHdpZHRoPScxMDAl XvSyjUclVM1hDc0mUTUr LWNvbGxhcHNlOiBj m2qzJNByZJdnMX8adSiz H8GgjAR7BPOnl8x7Uo86 dHI+FARtONC8lJnhPXhs z776JrSsl7pmUJR3 mUYqVDueBAG7Z41ew2U8 GRGpSVDmCWE9uHK3bE2b oXooajgjQ1XmtFLnKqT3 TIH1sHUmlQ1wsBuj fwwcrE6fSnw+N18NIN6I CUUQXX0NQuz4A3PxRruq dHI+QJ96UZLuNU07eYJy aWBpi8qazRx4EzTc NJHuGJO3pXssHZxns5Bn JSIqA96dwXHou0D1EVKm pOgpyZClGhGdbTB9eU7z NFwxvxkvx1nppqhl Iphln2dgpe82kJ44E72g YLtyVQWkMKM2JLFnCAHp hTffpo7akW1fIg4+IDxj o3cba4rboEf1HmTk WCQyrwHjrIcmYRB5d8Vm Rg50P4ZetCgag2YfZpv1 mv53nBJeq4G6rEV3EIwb IVWsaG6xZUfcClX1 GQElDhQhwM51tJSfUHwe Co4vnNcxaLyxKX3oTBYw stajHJTctZ7rGEGvgLNh fPsfLZ6rQPVfknpm y612RxYzABA6QXEogUEc M3EjfZ0sIkEnARCnTHEf V9WmrGJwKQrvR669ATan VwU3CYDsixQzK3Tl GYJniCizAtK6r2Q2Iq7Z j8FqirbqMON7TOsdUWBq LgSaWuMsExX7Z0XtXye3 EMUjtCwdPZ1wI3Ob HWYouajvtindfFS2UWLg ZLLdcH03bFUnBIukPq9i t2U1k464VGGhREGadK66 Hl8ipNcdSZChtZCY iY9lpcqud2cdcjqnKkEa FMWeAKl5UIb1UUYhnEpl IeBiUCG3OdX2KRN3sDAj yT2nfRfixytfkW9j Oyc+O58ybX6gXRP3JZA7 dvwwCAWnmsIuCZ94LK09 W3LbZlvywIDkcQF+PGRp lyUnyVrlZB7mUjQc x1iuc4VwWQxrO7VaQELj CKkbSfk5GDIgZLO6tGQ8 qE8zZITbRXoir3I5bHT9 O6WoksJdnp0ih1gn UZVeCYtoF97qhBGnv8K3 OPUyySO9INMeiNktBaAp qX57Drt+MBMsuClme5Ix Ipqdl3szo6nkdCo3 IjMwJSIgdmFsaWduPSJ0 t4UbFk89W45iRNmyXVSc WARpOPTgQVGklKpenl6w mV5zLs6+PGNvbCB3 kOP8tI1pPMUjVfQ2KFrw S952CsHtfTZjGgxnm9nf t8cpdOl4XhUoVIDljjPy uJovMSH9o6NgNk32 Y88wJYmhRYWfATEsUSKo MYDtlVytsn4cjG5jXz3+ IN2nb9xxpe47yT81xOP+ VZGlTRG2uNrnHRzs EZFbmG4aAObdOuM0ZWBe YkLtsR58yPInNNzcKh0o qBezrCuwKN1rWJBevqnz j599LpVvw1naNKXk dSTcRAfdYGQ9D53cy9N6 BEObYKLbAGN2bAJ1pV6a bGlnbjogbGVmdDsgdmVy lDhwVExmCQliJ530 IHRvcDsnPlBhdGllbnQg UqOkDJh6W3FaBiu2IECh vUmrRN9szFBxOQntUo9i rNwmlSkzXN9vKULc bsdyr096ShHpf3nbIWAq uGUgQDebMSC1H75ab3D1 GOKkMYZpIMW5qUD4hZ6i bGlnbjogbGVmdDsg kjMijDkyBEipFRgtE788 IHRvcDsnPkJpcnRoIERh kXC2ZZ16NJ38lZIkd7J9 vKP5T5IiWFQjvcjc roazmMZ1HWRxWZLojC72 Qz5osUlkPn7wRKLiEPN2 SONheEGxF6SeoU5pGsUf SMVcREDkO3PqoTMc WXffR734DLsaMmY4DMAm adEiM9BjELJhxNrsMtQ4 j8H3Vv6SG9C5SJ19GE22 pMBtu7L4hEE0J6Ek FZHmnoktfpbawRN6DBMw WWMnxX82Ae8tpDquVq9p VEIeAIB0NPTnzHPpH9Bt mR6iEeAvCKHbMJJy N0OchTPvKCwyY189ROhe UlI4VEQrwmYxI2GoVCNu dSfvGvO0y2H8Ah5XRZz1 AR39MV96wJUgf2P7 nLJ3S2TtIGAwqfgafbal sSD1EHEqNUKlyG43Px8i lAcfTr8kQLWnZJK3RHRc xUTiF5HizB2xBvTr HXKrDLKhH0ZbqIYnBLkg L581PZleUyZ0WHDhpwYi I6JfLGKfdWfyGvT6z2B6 Mt2PZIDkKX58CVP9 yWL0UL92FY98M8NbPuaw dGFibGU+PHRhYmxlIHdp ZHRoPScxMDAlJyBzdHls YM6cCb2rJVMtNSZs nZsioAEoWwDwe4ygVKIl ALvwAD7jkCeaX1TuaNI7 ECLxj0k8Mb59W44oI5Ef dXA+ZSEpdGI3tOK9 gH7mTuCgHjS2ZOzbZ573 SxGrrFPbTrfyc4zup1ta pEk2WrK8MMQphwWlkNnt YSX7p4MyOf14W74q IHdpZHRoPSIxNSUiIHZh iItlhp8zhS8yZa7+PGNv yBJ3gVY8aF9nKjGvTzB9 OQdvD381FjKkjOMu Itzze0etj3qucSo1LrLl KJMzosEtaQckBFI4e4Xt Jx72Y9PlnFslk5SxRrj8 ml83tQPht7B5gVX1 Q0DbXUKcvauwxMAotPlc SH3vDOCmdladIKMquC6p HPNtP0t4AzRhVuR1SEho E7KtcvH3GKYpaYKo LWykUBH6S41ed4S7LHZl FULuLUV4zSK3eB1hsSti bjogbGVmdDsgdmVydGlj FKwvIYvyW991QVPr nIdnJNXaeO0iVLEctZWt wEndIA3eTUVnhwfoNpcC QkVSTElORywgTEFXUkVO L7JrNQwiiNQ+PHRk QSU1gRwdDGylHTRbpO2s EZJlO3g8NmTdYpL0CKgr K3WrZHAzcmnaGc22jK9u XdGvQjA5EEqaC7Ic hnQ3DDSpqNEsINsvNYY8 Q14za3R4REYyCHOtWCW8 xSB3cG6sjQjndebbpHGw dDsgdmVydGljYWwt OGllO789VAImaDjgQmK9 TzKvMlH2MCb2W5BoNhg5 BMEnxBzuEM0qmSIaOTlx Bb1orZswsJmxTS0y BGOfwzkiXFOjaV4vAPGt yPZgnYrrNB9jDYOckhbq l391AsHzCYO6ACSobXOu C6UtrH4zCtFuSEQj DVGaJ8RzoFXlSEnoN677 YHkeFoI4OABxomZtL8Re JOMsrIivHyY4x9M4Dw01 MiBZZWFyczwvdGQ+ QUMaRIM9gIhvBPurRFAf kX4lPCIcW6z5GrAhBsD4 BTzuV7JeVRHfncipSn28 qM9lSePrIvM7AQqs D4YdtoN0ZCKgfCWzYZqo HVW9P72mz6S7UPVcATKn KOZ0mSX3yZ2zpMlceesu bGVmdDsgdmVydGlj YUmfBVshD166WZDtiMte Fd6PGWQ4I6AaAak8FSQl hHlaXV0enYWuRDviDy4q wHizaYjvTZ2wURTy mhaxNYNmtE6uBVUapQEa gKchBN4wTIAglcojb602 LkQrQUK1UCFfgAUxS9Yk qT8hZqZmOXYkKPTg F9XfvOByGMyrN365DBms NhA5CIJjxnDkH3RaTLYv eOgrLwW5c2A8Hw0BXQag dGQ+AY35qz56A5Dw JmopZlf4YEOxYCO0sQS9 fM9tHYUuHInrg9S1xOS2 Q8JwkhPica1lz6jsRIPq DMsiB15lfEFbo8F2 QMQatQB4TOPsiFgaDqNw cT89Vsw+GFTnbRglj9Wj Viapn1urs7dklCc5FzCr JSIgdmFsaWduPSJ0 g9SoBp91L50uEPjsOHWw LWLoORYcPHZerTrihh2o nL9gCv2+FDIprCR6uLM8 uA4iQzOuDyI0TZbr P418SxFxtZWnVqdcd7ll n6kpdKo4EpDjEWEeqcPa iOpuHTF7n2ZuMh67N2Ld cIfzx8PsLyv0cw40 oFOtj9N3gWB5M3TbSGZp usknwJKzuEevJO0tCMRy newsUWLfoH3fLSBtJ4j1 DoXzWuP2UIyvM2Fu mvP0DKJewWFvZUClpOLH tR9oqlnis6mcfkvbNpFd TVPwJVs7GZw6PGKudAoi QiEePTN4QiD3KZG4 gTBmcY8ckIjwvgwjsZ5s Oyc+CKi3j8fqcWMnDT1j yKQ0PP67BM29uIRwz6B5 pQZ0Q9OoDPHbmsif cbwxdAS9YNYtFKDklL23 Og1wyTfvSe2fXEJmNCX1 RLIcrTZbA3CeiS2eUaPj VAHnEANnR5SjiVUu BBvhV093AVnvXrX6QEGh yjHeN6BsFEMdxGutZhO2 v2C8Ce3QEO09IJ25LJ52 pZWbl8M3fPE5Z6We WZJguduavzblxEO9JFGa OGZsqM91Zo5yoRphMb4o TKBlFPF9WTGpjZFbS6Zi pN6kUgMgVHVsUZNw R7KorYFqNIycJ493XBrn IfI9RKCzutZgT0QcOXWl yErhQvA4c2Q4Ll7AAk47 BT02TB69fAWab6B9 aDM3V6EfSHXxenvmvsej uJF7FMWuLQTorM84Yr9q xWxoBx1gFXFyVAB8RJSw rUBoO1ZpjY4nXoXs SZLnNSWtP1ZivRNzAHii Z164ENndEoE6FYYszwLk C0IuTMUuaAqxZuF9u3A8 Dp6KMTkhtcw7S4Bh PjwvdHI+DZ98SNNcSR63 aNDqbEUsq8clkHb5YgKx JINkOJY3rXpkHEqug4Hz YBTqZ71lsKHcc3S2 IGN (more content not included)... [facility] Consent Formson 03-12-2021 Consent Forms [id number] #[id number] [facility] Coding Summaryon 03-09-2021 Coding Summary HTMLBase 64 FofpjihzATl5uZe+PGhl YWQ+GA3RGDSaF00hdTPa xD6OB8vUND4CJOFJQRIP UJ6TKU0mcZK2WYqmR7Ut biAv PcfrwGVwGJ22VWb2LYF6 oAncNThexQ5pwUUlT7n8 RyLjXD05hO45MMwqOOEy TvU1TaPryscfcNLd K7kvKcReuCLrVcl+PHRh YmxlIHdpZHRoPScxMDAl MgAdiRdbZV5jMy9fTBZx LWNvbGxhcHNlOiBj a6yzKFGjEGsoNR5xcTdd Q8EidAI5PYMba9e3Yg06 dHI+USYwHLJ7aZcsLQvo w557KrXvc7lzZET3 wRPbVAseDBH2H41wf6R4 PVMfJJVtGFT4iYZ9tH2m wVerzvcvY8QttYCeXlS0 ZGP6wVMfiK4qiPis cyyedQ4gEli+Z62WND4Q VFHDHR5HYub5E1RpBkqj dHI+WE39UYReBR05eHTf iSOxf5tokYe7NuDa XJLhKME2pBrwGCrlq5Nx ZDPiI03yfXObv8B1QAPz tGxmoTQeNrCqaEM6sR2f CEnqbmznz9abbcnq Jbgxq4frgc14uK44L71x NQeeOPCyAXW4CTPpUQBm mBdnxa6mhL5qVu0+IDxj y7xpu7qftDi2QjQx TUZokyNglKmgQBM3x1Tj Gm92P7NoxRscn9MwTyg5 cl61sMXmr8S1bUU5FRuz KTEsiE8oPBsfGkJ3 ZBQlVpQmmM14gFHlMZap Hx2gwDoheRvaIK1mIWDi qfajIUQlyA3iBMPllWMz uFevIO7pHENpaqql u939ApQwTSS2DZLjjVRs Q6ZhoO2jOsNlSTPvCOPq P3KfhIBxQEgnM115QMiu AgE9DUFgymBcF7Nd OHVxxWzfVuJ1e9G1Ve1G k7YwknyrBFA9ZGepLMKz HyQ0ReUzMvS5R6HcUrf1 GVJdaMpeAE3hO3Kq KMSavcqobfaaxVR5IEVu NITzeR21yJNvKRdgNg9e k5U4d498YAPdTQQigI51 Qu6okBvtZTNzzNOP qU6cfzpev3zozozjMeGf OQGoXEn7AIv7CTEvqCco UlYjSND2ZnE4ZGH8rQXg iV9ofOybpurfvO8e Oyc+S15dpM1vDFX5NBM5 htmyGVKgesLrWD38ZL48 O8MfHsczdYJntAC+PGRp auDpaSufZB0sWhNr i2cfv6BtJKubL4UtRFCc GSqxYah3TXWkDDI1pGE2 zE5yUTZxPNwbq6O6fDH0 K9ToqlXwht2yk1vw YPUyVHfuL81wfUCop2Q2 PGLueXW5JQNfiRubHhCc uG09Puw+CXSflPpoq9Wf Fbjon8mrv1ivbQj2 IjMwJSIgdmFsaWduPSJ0 s5TqCn97T33lQNnfMMVf LVWvBFIpUKRahKthql1d lV9xPn7+PGNvbCB3 jZJ0gO7gPEKwToJ5BTme Y985SnLnhAFbOdsbv4wr r8gcsJr4ErEaEOCuvuEq rDrmDJK7w3BeLb96 J88bNNrzGLNnHBImANOs FMYqpKkmsj2ntJ5sRk4+ IO6rk6uury17tR57rWM+ MCYvSXU6hRrdDVjz VMHqcE6dWOswDyH9MTUg UxCjtX69kIPuMTlrUf2c fXzclEekBV4wCSKsvaxv g664BiJcc6mnIILf nCArTSolHPN4G25ba2P4 ERXqCCAqUUL1wXH4nF7e bGlnbjogbGVmdDsgdmVy qGujRVnfTNjkT663 IHRvcDsnPlBhdGllbnQg PdWzJGq1E1ZpQjv3MEUt aMriTI1usCXtTSifYs4v vHjopEbsOM6xWKEq nywor923SzZpq9wqKZDh xKNkYGobPDU1S55wy4O9 HJKxPORrARI8zUL5qC3y bGlnbjogbGVmdDsg wiHqhMewKXnlLYvhC615 IHRvcDsnPkJpcnRoIERh zKN3GH56RC42cBXxm7T7 uXO0P2TtXJQubfhl moplhAW6EESiSMCzeX11 Xf8laWmyOd6jWLMuVHN3 GALkiFKxU4UbsD3kFdZb GKHtMSMyH2FxjHVp OPpmA539YKcrJcN7PABw emRbV4BfKOPurIvoNsK9 p6Q6Zx8GL6I8IU37SJ72 iLOyl9O2fWO7P8Ib YZMytiyqlhdmmGB1VMSb UMSggU44Ds0elGilYm7i BBPvZUX2IODxhGEaU1Bh vQ1eAiKtQTOmRHUq K1LudTNoKJggY463NUfb KkF3AHEfkpXaD7PwZHLd fNtbZrV9z1X3Wg2UUCo1 VL31UM83oZChn7S8 zDF8W8GaZPRltznggfxd vOR0SYSiHBOruN58Ud7c sSkgNu5dIIKjMRB2RCKo hMYfE4IfmY8yUrUt GQQaLNJmG2QiiQVtUPdv S593UPhvTvO0JLZbdiEt J4PiFGVgcVttDrE8z0C6 Tr9WYESfGF09NLZ6 mYJ1EN40XK18M0YfDuks dGFibGU+PHRhYmxlIHdp ZHRoPScxMDAlJyBzdHls ZH9mNs1vXIBuAXEq vBrsdNZhVkCnc8rgATEb OUqbJY4caNduP1FqhQS2 ZKJcy6e5Qx52V27eV8Og dXA+KDWgkWW3dNV6 aQ6aNoSiKhS2IPuiG292 MdSffQMwUgrfc8uwk9pt pQi1GfN8CTZmzmSwwIsb ZBT0u7LtTa80N87i IHdpZHRoPSIxNSUiIHZh bCpwvb0ozS4sOe7+PGNv lRY9kRJ3iM6wKyWjQdY0 RJfgG814IiPzjXJf Sbotc5yir3fwfLd5DwRe NZHcvtMuyXgePZW9n5Hy Si23R9IyeKtsv5TpGki1 uk14dXQlr1P2wJT5 P8WvAEIhtzkioMCqpVgp YZ8aSYTbguwvSMKkwX6k JLMsK0m8FySrShI2HSuq B4NvizS9PEEapIHs KBayITD6M67kf8F3MUJq PATcVBK4rYV8yU7hpAmn bjogbGVmdDsgdmVydGlj DHxyCFooA705LVSe zQfjVBGfwP4rDBJjdMMx hGrnRV1jEFKqxkyvIjyE QkVSTElORywgTEFXUkVO I4ZxFNyxbUF+PHRk YYJ2eMduEEmeRJHwvT7a FKTgC4r5KiUeEvN5FOxo Q1IjQGYbrfvdTy69eS0y VtSgZiT2CGkaK0Vc ziN8SRSgcOYxHGbmPXQ3 B90uk6W6NVFdNXVbMTX9 bUT3tD9fmZysrnepxIMb dDsgdmVydGljYWwt OMvvE924UFZkaOwsPnD6 PxWsRxD5UDm7K8WwNta5 YCNpzHoxGW4eaULiWXaw Qh1xbGdcwCzhCG8u REXfytfeJGIfpW7fIGDm sFRqmQwkDX7aJLDdthdj g045GdLxRFP5DPTtzBCx C6CxgX7jOrWrVGHa PMYaG7ZcfMCeNYbkU205 TBhlBlI5GJRyjoAoL8Oe DDLbsLquRmR7f0W4Fz77 MiBZZWFyczwvdGQ+ AMNmOFS5sHdlSIbvPEDp yF5cZBXlH2z8SpFnTnQ2 GRfoV2JdZPKmpzhfMy13 uS5hQcFoWdO1AHra C6BjbiC8XWAirEAbALue CMF6G08rd0W2VLWsQFFg KCM1aVP7sX9xmRjxltot bGVmdDsgdmVydGlj ODudJBtsO238ZOHngLaq Vl5ENCE7S3JpPcb2BJXj kKulDE3lfTTtYIxrCy3m hQvhrWuxZD1pLXMl eqquVGNfyD1iFWIilMAh dLjeBK1wJTArnlbws244 XfZcGTH2IUGfxRVaZ2As kV1bOhTdWVJxERNm G5PmtDUiKOukL192OPkn TgP0YNHtqeHsP9TyMVTi dIoaUsH4k0Z3Zt8FUbAk cnZhdGlvbjwvdGQ+ WL59nj09M7LyBzadTff3 IFUdKOK2zFB3fN4rYMLu FBmup8Y7iKW3E4YwtqCb tz0es4hwFOXwDAvf S66qkOCgc8Z9TLBayWF7 VSYklMchXsHhkA94Dbn+ FTIztSzgw0JaXizwq8te i5jebLn6TyOwWYCp vqOgkYbjGKC8w9RiXp65 F38oHKlkJLHiUDExMKLc FQPfmGivrh6leP3nIb7+ BPEzpUH3nTU5nV9h ZaBvDdN3JPxbW344KzLi jJWfYlwdc0gqx8dzdGx1 IjIwJSIgdmFsaWduPSJ0 s5UyEj14M1ZidDgb s5UcQzi5og05eXMtw6U0 gXQ5V4QsBUTgydamrQIh fXpaBA2wFPKgbiddLNDu kB4cSKUwA3o8SfGe YqC2RUhcR5PpovF2WGHu dQCjTDHfiUYHnW6nhquy y1nopxvcYyRgLBOoTFq5 FRk8OJHtwLhjBoSy QFT1EsS6EAY6zXMxxU5n fEuyfwhzrL8iUkc+UGh5 j8kxcZZzGO9jxAT8FO45 KM07pWLvg5B5sEY6 P7OtGBRoixwjfpeiyGE4 UMGmETXmdQ81Ez5onByj Zn8sBJJsIKZ4QSDnxDGz O7QunL5fQaKsYFEi AVVsZ5MkpLOuEVteW521 KIfwAmG5ZSHfmpUjM2Iq EQBauXxxKaD7r2O5Gr5H WS29HX91FT97bSBx z7P0xLV4H8MvWXTflnps rcogwMU6LBThHIRyrX16 Pp0yiWmiDa0lRCCzVGL5 YFKfjPDxE2LjyV8g FvUbQYHoNUZtJ3VbmQHk JDotO771HEfzJcB2UYAr fxLmA6OgDRBtzKqyYcQ3 n1L1Sk8YEv51LL51 PU32pSLrr4C0cIS3K8Jp PSFepenxitvxdTD9TJMj THKttA68Bk3pcScaAe7f BOKxFYW0FQUebEQe H4UwuY0xHtZySUUxPVGb O1AzjWUxZPitZ752DHyx CuO9WQDajzHpQ0UeXPIq zLqcFrN2h4Z7Gy9Z PNqevby7Q9TlUqggtZM+ NG19OYJsXE22oWTmkVLk v1yrwJg2NuMyMDXjOXU2 yTbgTSijs0WxCMQh Y29 (more content not included)... [facility] Coding Summaryon 03-08-2021 Coding Summary HTMLBase 64 GwqaihiyQUa2zBw+PGhl YWQ+YD2ERLHmP73lbUZd aY9CJ0vQXG1KGUMTLMIQ UR1OTB9bhNS0UIkuD7Ji biAv ZzzsrXJpZM71MXu3IGF6 mHwsGDadeT8vgQBcW9h2 GbYfAZ64sW63BMtoZOPt ZbF9KiUldrbnxHDp R2akElAdkJRuJey+PHRh YmxlIHdpZHRoPScxMDAl YxWxjWvaKJ3qOl4eNALm LWNvbGxhcHNlOiBj d3bjMWInQEjeNR1zrTtm N9NylCD5LDKzu3u1Dw80 dHI+RKDjGSY9bMklJLlk c322JmTxq9gzKEK3 uQRwWAuwVUJ1U70oe3O4 IEXhVWGmFSM0aHE1uZ0f nClpudwjH9YzxZCzFvI3 UAX5dNTjtF2cnWfq gzizeH1sTsl+G19LBN6G CHFOLS8OOqo5T3YbSghq dHI+RK24AFZuXI21cKYn xFInp3tcgDa5XoJg GIVqIXO2sNzkNWcuo5Fo AJCvW55xnFZqm2F7HOIe cNaimQXdTwHkpVI4qA9h JHphbsivi0ptkmrh Vnqxx3vkpa92iG06I28m CSedQQTrDSU4QJRkYSCi uGqihd9veA1lKa1+IDxj l3ajs9ukzZg3TzRl YZZanjEflVjkJJU1a4Cb Lp00X2GohPyrv8DbOjw6 xy24lNWta0X1tML3FVcg PQFagQ3iZMyrSgK1 JKGeUlNdoF66oEAgVIaq Mv4sjOcyzOnvAM7gBTVc nkjsULRflJ6cFUZvhQSx qDukPR8qIWRiclkz f685PcPpRMY7BGFwkBMy I7FepT5lOdJfMLUrQUBl Q0XxzAPrQBozN239AAde GhE7OJOustXkY6Dx CMXxcNpmQiK9t7L8Ba2I l6QbwlptMBQ9VAkeVQMw RgR0AcSxNbB7J2MjJey5 LQMeoBerUN9nF7Cz PZOptlyebwbwyHB6RFSf QNFcbS51xYHePQifVt5l o0R3k143BCOnUUNyyM66 Ia8enGqbNEQseAIO cD0nanfbt4gehpqwIoLy PIPjXVr1IRc2WEBptMlm TgHqCTB0DxL5IEA7vDJe nQ3gjZtwufnnuA5v Oyc+M76ivV4gNVJ0NAY3 amduUMMhdiNkTX24JM65 A2PaAemkxCStmNH+PGRp ifBjjDleVW5kJoOt f9mas8InJWyiI1JkEVRg PMzwFkr6OFIzWFK5lTO9 iA4pXGLyZPznf5Y3sTZ4 Y8RylhAoxg3ji0fe YMMwUEmrR75ssVJtd2Y2 EFGiqAS6UCNfcOonVsSk uZ25Srd+BEDvmIzoj4An Eyyjj1jig5isqBh9 IjMwJSIgdmFsaWduPSJ0 m1DjBh90H63mMUypILQr AXZxGCTbHPSvbWttnp0c jJ1cOg7+PGNvbCB3 iXX2fM7wNENyYrW0HAuw M284OiNhiMSaClikp5nu g4sanUo4OkOxGWYnhuUw xSqzVMX0f0XvFc92 V55nSXlfGOVmXYPhBWGh RMTqwNkmfo8ydH0xSh6+ WP2si7tobe62yX23kEX+ RLShJWP4yPtzAVxd OMCgfI3kTKueMzT1JSFo VxWjeB87iRRiHQvpSx1r tUnbtEgqNM9qMBCpqqma t289IoNhr5btYVQg vVMxQWkjFOU3H16vy4Y0 ZEAlPDBpOZE0mEG4dI7z bGlnbjogbGVmdDsgdmVy nEqwQQihSCktO370 IHRvcDsnPlBhdGllbnQg IqHlTXc9R7EyYgm6LMRx gXfhPK6tiQSvNRzgTz2f kNipyHrkPY3jPYIm azdkr732EwEox4qqOVHc wODiEYrvLFL5Y96xg3N4 PQWdQJYeXPA8pZO6wX4b bGlnbjogbGVmdDsg fkBpyChxWLzkDBwoU512 IHRvcDsnPkJpcnRoIERh sRG5BD94KU21kXOta0Y0 qMQ4J4CgMEYjcbre tcfljZX5CZLlURKbeA24 Nt3mwCmbKp4sWILtNHB2 MWIdzVTtC4WhxU8mXvPa ILQsZBZwP1KpvILn PMwlF414ZAuwDbR9MEVk zcPrF2ByCXJukRqwYfE5 x0M3Sn1HE9O7EW38XJ09 yHPpp8J9lGO2R6Fi AMIqpsfonuoznIT3LAOq SUUpgA04Id2hoQxcEj8o CPPbZTQ4CRYnfIXrH6Wx xY2wDrCyIESxYJMp M6StvITaYIqfV920CQdt MfC5DNHtsnAiQ9NeUFAc yRbyFvD9s5B5Fl0VZZf3 JW14CP16xMPtg6O6 zGB6J7BmGOCtlrnqccee vPQ0DARzTJHirU87Mm9e iJgtNy2hYVRnBIJ9WPXx cCMoJ5BysK7nGsBb BIHjJWFzM8GnpEYdUDqn K853OKbfDcH5CLAlflLx L8HrWIYzxHpqVeC0s3U8 Sf5QENFpSJ17DNO0 nZN6CS73BP66U2QzGfmn dGFibGU+PHRhYmxlIHdp ZHRoPScxMDAlJyBzdHls BB4aEc4fFIHzWQGq pUicpGLeQsCmz6niVYYa UZjyUN1qhLcbX8LpeSW1 UBPvj2s3Qx00W65bT8Km dXA+OAWhfZZ5bKN5 hR0pJgHmLgX4FXtnD638 YjLlrIUgWmkon6phb7cd uUg0QkX9KDLkzpXccEgg GTL3g4WuUv86F04d IHdpZHRoPSIxNSUiIHZh qKvmyb8oeZ8rSh5+PGNv bQP3zRG4cF7sWnSfHtG3 KLsoI214KjRbiMLj Ufqsy8ooi7nleDm5NlQi RNDmbbWrwNjsMHM3a2Xd Yv59R6SblMuyf5YtRpe2 sf57wRHvq3X4oTL0 H3XoDWGruxpxnNBcaMvb QW6lQMNmorolMKZyaU6v WTZwV9s6SbOsSiM9NKor R5XzwlW3LOPwyNJs YVqhQOR7J90jp7N3KDDn QYAiVMP2zZO2oH6gtEvb bjogbGVmdDsgdmVydGlj OEhfIIkvU767GAPd xRcmJHPzaY1fABZgkKBx gGajER6tUXPcsbjlCnzS QkVSTElORywgTEFXUkVO W7NbNRtrqQK+PHRk OLK9cPqrRSyaQUQzaV6e XQYsZ4o5TqJbKmO4IBdw L3IxRGQrspjeMf39gT5z ClIkTqI5TIzcB2Sg irF8XGIiwOEgGMnjNXA2 G67tx6C8YTUsTEZaMYH5 bDV1wC3abTlxqywxyORj dDsgdmVydGljYWwt FNfdD318UYJspIalZkO1 UkTwViJ7YGw7N9TrVci5 AUEgxYlbFK1plNArZNrc Pe0llEfufNgvAW5r AKZrecjiRXHvxI1rHZCz uKDkdLniWI1fEHUncqsl v828LqDlYSY9UXDbiLQw F7DkvJ8xXwJyCTEi OLFbA3RirLJhFZfuM674 JZlfCyQ2QBEdbtOvL8Jx OVHhrUglSwJ6j1M7Yl20 MiBZZWFyczwvdGQ+ HXYwFCU5uLylSKxsFDTv aW2eAXSwQ7k8TeSaErD5 KCdyG1HePRLvywrtDo19 zV8lCbPoNtA9DTqw F7KldoD5UDApiWCtQFwy RTO5Y63sz9Z8GKRsHOAf SXB6oUP4lC9dhXzesgok bGVmdDsgdmVydGlj TFejLRyeH993OPAiaWqp If9FPMV8L7YmGxu7QBTb hXkjGN8swCYpNSwgTa7r sXmarFgvRQ2sFUSr sogmATWzbF5yVFRvoTWt dGgjNI0nRJChtrifz846 SjNuVQF6KTJooIDjR2Qw xM2qSzRtNVRqCOOm I7TyyBDlPRykL361PGaw KgH6PMOmlqXmY9TfVCZi pMjdSpY0c2Y1Bu5WCYae dGQ+BO09zw35F9Ke MrqoLfw3KZMaDJV6bUZ7 kR9qQHNmFEdxi0U2cBY1 T7RsylWasa9kj6ffGHWg BAeaZ19ncCDjx8X5 HPXpnKK3JXOscYxkXuFh uO51Aej+WTGpwZqis4Pk Frfoq2jet0droJw7AtUn JSIgdmFsaWduPSJ0 b6HyMj58D77hDWhfVZRu QNUyGVLfSCRazKqgbp5w pH6xXh6+XJSyeQM5vJB9 qB5uOaAjFoU0JFqg K830HfSwmINuQvxhh7ml u1mfmNq1IfWcNOYqzjEb oByiSQT8h5KlBt16Y6Ed xJuwo3ZmYfk7so19 fAHbe8H8bNE0G1TtDUXa fruaqYWwdLnnCP1vBNJl mcklKIOzmG5mAOTpS7i1 UiDoAsR9JFeaH0Uk isW0SLXxyYAfKYLlwMOV vA8vcgieq9wbmdsbUqWn BYLyJLi0JWp8FGDnyCtx FyPtWSR5YfM7HES7 nDEspZ0lcCsjurpjtA3c Oyc+ZIr1t1narAOeRW5n qUS0AH31OO19wSEeq0W1 iLB4H8BdLCKlvkuh sccboNT2TVXqADRmoO65 Xm8ymCkoAm5yMNZqUBE0 ABWmdBBsU0UxrM4yBpYd NTJxENXaV9HvuVSt DWfeI060PUygRtK2AJXt suFyG1PtPUQprJebMdL0 k8P4Ok9NMH94VD23WR40 pCIaj6D5bXW5O7Vu WVPdfxrbebmdvUV1MMAn UGTwdI15Lj8mgYybSg4b TGGcAXM6TDWqtUMcO0Dj tY4vFhIjOBNqBTNj Y5XcqPLcUWytM835ZRjj AgR1BNTrpvXnY1PnQNJn aOcbJqN7f2I9Wh4DIh36 US82WW11fDRkg7J7 hHZ2P3BjSMDrlupcbnbp qKJ4YCNwKSBsdI69Jq7q cCogKw0hTICrGEY5UGDn kHBzN9JdaJ1aAgAz FJCoLPGtU8LqkMIqLCnq I451LTseGpS7ZGVabqWe Q4BsMOPsxSyuSyJ5t5N6 Dx3MTXofsqf8X3Wa PjwvdHI+JN68ZJDsCI78 wHHjmZRpo3rxaWf6AmEa KIPgRAD5iAmyCFeep7Wc SJCwP33mrSLxq1A8 IGN (more content not included)... [facility] Consent Formson 03-04-2021 Consent Forms [id number] #[email or web address] [facility] Electronic Messagingon 03-04 Electronic Messaging --- --- --- --- --- --- --- --- --- From: Ej (Jim)Ej To: ZAINA WINTERS Sent: 03/04/21 10:12:15 AM EST Subject: Discharge Summary Ready to View A summary regarding your recent visit is available in the Documents section of your Health Record. [facility] Intra-Op Record Summary Primary Physician: DAVID AWAD Finalized Date/Time: 03/04/21 08:14:12 Pt. Name: ZAINA WINTERS.O.B./Sex: 1950 MALE Med Rec #: [id number] Physician: DAVID AWAD Financial #: [id number] Pt. Type: O Room/Bed: [facility] [place]/ Admit/Disch: 03/02/21 05:52:00 - 03/03/21 14:09:00 Institution: [...] Role Performed Surgeon - Primary Anesthesiologist of Outside Sales Representative Insurance Record Time In 03/02/21 08:00:00 03/02/21 08:00:00 03/02/21 08:00:00 Time Out 03/02/21 12:09:00 03/02/21 12:09:00 03/02/21 12:09:00 Procedure Arthroplasty Knee Arthroplasty Knee Arthroplasty Knee Total(Left) Total(Left) Total(Left) Last Modified By: Jo-Ann Schwab RN, Barbara RN Long, Barbara RN 03/02/21 12:19:51 03/02/21 12:19:51 03/02/21 12:19:51 Entry 4 Entry 5 Entry 6 Case Attendee Marjorie Esteves SCRUFF WORKER, Sue Horner SCRUFF WORKER Role Performed Scrub Personnel Rigger Up Rigger Up Time In 03/02/21 08:00:00 03/02/21 08:00:00 03/02/21 [...] Syntegrity Prep Agents (Im.270) Povidone-Iodine Prep By JoA-nn Schwab RN Prep Area (Im.270) Knee, Leg, Foot Prep Area Details Left Skin Prep Agent Dry Yes Without Pooling Hair Removal Syntegrity Hair Removal Methods No hair removal performed Outcome Met (O.100) Yes Last Modified By: Zaheer (more content not included)... Normal [facility] Outside Recordson 03-04-2021 Outside Records [id number] #1.00[facility] Provider Orderson 03-04-2021 Provider Orders [id number] #1.00[facility] Telemetry Stripson 2 Telemetry Strips [id number] #1.00[facility] .Auto Diff 1on 03-03-2021 Auto Josephine % 10 % Normal 1-12 [facility] Comment on above: Performed By: #### 1 [id number], [id number], [id number], [id number], 2249464, [id number] ####[facility] (DEFAULT)[address] [place] [address] 01380 Baso Abs# 0.0 x10 Normal 0.0-0.2 [facility] Comment on above: Performed By: #### 1 [id number], 88784202, 0319878183, 0798818840, 7310169, [id number] ####[facility] (DEFAULT)[address] [place] [address] 62004 Basophils/100 WBC (Bld) 0.0 % Low 0.2-2.0 [facility] Comment on above: Performed By: #### 1 [id number], 61884107, 9291051305, 7245284303, 9159895, 6968124487 ####[facility] (DEFAULT)[address] [place] [address] 30582 Eos Abs# 0.0 x10 Normal 0.0-0.4 [facility] Comment on above: Performed By: #### 1 [id number], 37636264, 1608779694, 3146848773, 0757556, ####[facility] (DEFAULT)[address] [place] [address] 22457 Eosinophils/100 WBC (Bld) 0.0 % Low 0.9-4.0 [facility] Comment on above: Performed By: #### 1 [id number], 03880072, 1851108449, 7770736450, 2380380, ####[facility] (DEFAULT)[address] [place] [address] 26340 Lymph Abs# 1.9 x10 Normal 1.3-2.9 [facility] Comment on above: Performed By: #### 1 [id number], 50450071, 4590940314, 2255470961, 3244230, 4801803052 ####[facility] (DEFAULT)[address] [place] [address] 55323 Lymphocytes/100 WBC (Bld) 10 % Low 14-48 [facility] Comment on above: Performed By: #### 1 [id number], 29742496, 3941047007, 5996534599, 4068450, 9948156213 ####[facility] (DEFAULT)[address] [place] [address] 92407 Josephine Abs# 1.9 x10 High 0.0-0.8 [facility] Comment on above: Performed By: #### 1 [id number], 10404290, 1589471089, 2198103816, 6717917, 4190973561 ####[facility] (DEFAULT)[address] [place] [address] 94993 Neut Abs# 16.2 x10 High 1.5-9.2 [facility] Comment on above: Performed By: #### 1 [id number], 87626950, 1294569468, 6897177961, 9369821, 7524142588 ####[facility] (DEFAULT)[address] [place], [place] [address] Neutrophils/100 WBC (Bld) 81 % Normal 44-88 [facility] Comment on above: Performed By: #### 1 [id number], 99341507, 1803164362, 9789812563, 1362301, 3465266802 ####[facility] (DEFAULT)[address] [place] [address] CBC w/ Auto Diffon 2 Erythrocyte distribution width (RBC) [Ratio] 13.5 % Normal 11.5-15.0 [facility] Comment on above: Performed By: #### 1 [id number], 76959363, 4228198313, 5414334961, 2207791, 5261016587 ####[facility] (DEFAULT)[address] [place] [address] Hematocrit (Bld) [Volume fraction] 40.5 % Normal 34.8-51.9 [facility] Comment on above: Performed By: #### 1 [id number], 70304683, 6743398109, 3944457117, 8601730, 1504865737 ####[facility] (DEFAULT)[address] [place] [address] 17735 Hemoglobin (Bld) [Mass/Vol] 12.8 g/dL Normal 11.8-17.7 [facility] Comment on above: Performed By: #### 1 [id number], 46879214, 9911930995, 1153605126, 2668343, 8973268342 ####[facility] (DEFAULT)[address] [place], [place] [address] Instr WBC 20.1 x10 Invalid Interpretation Code [facility] Comment on above: Performed By: #### 1 [id number], 58321273, 9125819692, 5166397418, 8076787, 5932392850 ####[facility] (DEFAULT)[address] [place] [address] 36596 Man Diff? Auto Normal [facility] Comment on above: Performed By: #### 1 071476239, 92021244, 0170919865, 5577903061, 8453671, 0959307424 ####[facility] (DEFAULT)[address] [place] [address] 18506 MCH (RBC) [Entitic mass] 30 pg Normal 24-34 [facility] Comment on above: Performed By: #### 1 [id number], 96241034, 5185490975, 9314164145, 4327906, ####[facility] (DEFAULT)[address] [place] [address] 09087 MCHC (RBC) [Mass/Vol] 32 g/dL Normal 26-37 [facility] Comment on above: Performed By: #### 1 [id number], 62039567, 0831510447, 5175877601, 1287852, ####[facility] (DEFAULT)[address] [place] [address] 44579 MCV (RBC) [Entitic vol] 96 fL Normal 81-100 [facility] Comment on above: Performed By: #### 1 [id number], 05737081, 6953350172, 8507495196, 4286234, 5409781186 ####[facility] (DEFAULT)[address] [place] [address] 36983 Platelet 275 x10 Normal 138-427 [facility] Comment on above: Performed By: #### 1 523782640, 24500437, 6676496368, 0904763168, 7558486, 6577090039 ####[facility] (DEFAULT)[address] [place] [address] 39058 Platelet mean volume (Bld) [Entitic vol] 10.3 fL High 6.3-10.2 [facility] Comment on above: Performed By: #### 1 [id number], 11711825, 7832555837, 7137881085, 3346924, 0643932609 ####[facility] (DEFAULT)[address] [place] [address] RBC 4.24 x10 Normal 3.70-5.30 [facility] Comment on above: Performed By: #### 1 124831546, 93913031, 9523332461, 9790964192, 3374607, 4030910182 ####[facility] (DEFAULT)[address] [place] [address] 94188 WBC 20.1 x10 High 3.5-10.5 [facility] Comment on above: Result Comment: Slid e Reviewed Performed By: #### 1 [id number], 34286573, 3675757527, 8268608718, 0868053, 6182169434 ####[facility] (DEFAULT)[address] [place] [address] 10720 Electrolyte Panel Standardon 03-03-2021 Anion gap [Moles/Vol] 17.0 mmol/L Normal 5.0-19.0 [facility] Comment on above: Performed By: #### 1 [id number], 58987821, 8569931968, 7394289471, 7502662, 1953497794 ####[facility] (DEFAULT)[address] [place] [address] 05796 Chloride [Moles/Vol] 97 mmol/L Low 101-111 [facility] Comment on above: Performed By: #### 1 [id number], 80620242, 8405212664, 8286339317, 9157137, 1596770918 ####[facility] (DEFAULT)[address] [place] [address] 02657 CO2 [Moles/Vol] 26 mmol/L Normal 21-32 [facility] Comment on above: Performed By: #### 1 [id number], 77923404, 3899085781, 8104780680, 8939530, 2709172839 ####[facility] (DEFAULT)[address] [place] [address] 23905 Potassium [Moles/Vol] 3.9 mmol/L Normal 3.6-5.1 [facility] Comment on above: Performed By: #### 1 [id number], 34175775, 1732454842, 0410951454, 9126996, 6427329072 ####[facility] (DEFAULT)[address] [place] [address] 00984 Sodium [Moles/Vol] 136.0 mmol/L Normal 136.0-144.0 [facility] Comment on above: Performed By: #### 1 [id number], 34788831, 5617166089, 1962865698, 2867919, 1390665274 ####[facility] (DEFAULT)[address] [place] [address] 45971 Extra Greenon 03-03-2021 Tube Collected Yes Invalid Interpretation Code [facility] Comment on above: Performed By: #### 1 [id number], 43569061, 2252420165, 6625450450, 1383150, 2859233705 ####[facility] (DEFAULT)[address] [place] [address] 36295 Inpatient Patient Summaryon 03-03-2021 Inpatient Patient Summary [address] [address] Patient Discharge Instructions Name: ZAINA WINTERS Carmen : 1950 Patient Address: [address] [place] [address] Primary Care Provider: Name: Jeannine Hurley After you are discharged if you find you have any questions, please, call [phone] ext [phone] to speak to a nurse. Discharge Diagnosis: [...] alcohol and/or drug addiction problems; contact the [facility] 05/09 Crisis Hotline -Text 4HOPE to 817594. If you received any narcotics, sedation, or [...] business decisions or sign any legal documents [facility] would like to thank you for allowing us to assist you with your healthcare needs. The following includes patient education materials and information regarding your injury/illness. ZAINA WINTERS has been given the following list of follow-up instructions, prescriptions, and patient education materials: Follow-up Instructions With: Address: When: Marina Redd [address] [place] [address] [address] [address] Business (1) 03/15/2021 10:30 AM With: Address: When: Jeannine Tonja [address] [place], [place] [id number] Business (1) Medications During the course of [...] mg oral (more content not included)... Normal [facility] Postoperative Recordon 03-03-2021 [facility] Postoperative Record [facility] Phase II Record Summary Primary Physician: DAVID AWAD Finalized Date/Time: 03/03/21 08:37:51 Pt. Name: ZAINA WINTERS /Sex: 1950 MALE Med Rec #: [id number] Physician: ROWANGERMANIADAVID Financial #: [id number] Pt. Type: O Room/Bed: 231/1 Admit/Disch: 03/02/21 [...] By: Vianca Celaya RN 03/03/21 08:37 Normal [facility] Nutrition Noteon 03-03-2021 Nutrition Note Pt admitted for scheduled Lt total knee surgery. Diet advanced to 3000kcal DM, along w/ usual post op vitamins/minerals and oral nutritional supplements; adjusted by casualty underwriter to 2000kcal to better meet nutritional needs without overcompensating. Labs reviewed, BS 138-177mg/dl ideal post op. Pt at high nutrition risk r/t age greater than 65y, however, no immediate nutrition concerns at this time. Will monitor for changes. Normal [facility] [facility] [place] Anesthesia Noteon 03-02-2021 Anesthesia Note Patient: ZAINA [...] on: 03/02/2021 12:40 EST] Dre Santos DO [facility] Anesthesia Note Patient: ZAINA WINTERS [...] = 20 mL, 100 mL/hr, IV Piggyback, Meat Molder tranexamic acid: 1,000 mg = 100 mL, 300 mL/hr, IV Piggyback, Meat Molder tranexamic acid: 1,000 mg = 100 mL, 300 mL/hr, IV Piggyback, Meat Molder Documented Medications Documented Eliquis 5 mg oral [...] All Problems Atrial fibrillation / SNOMED CT 68970133 / Confirmed COVID-19 / SNOMED CT 7744823665 / Confirmed Diabetes / SNOMED CT 403481687 / Confirmed FH: hypertension / SNOMED CT 600661901 / Confirmed 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 Comments: 02/04/2021 10:08 Oliva Van RN surgery [...] ECG interpretation: Normal sinus rhythm. Plan [place] [employer]esthesiologists#(A SA) physical status [...] EST] Aiden Santos (more content not included)... [facility] MAGR Intraoperative Recordon 03-02-2021 MAGR Intraoperative Record MAGR Intra-Op Record Summary Primary Physician: Finalized Date/Time: 03/02/21 08:23:07 Pt. Name: ZAINA WINTERS /Sex: 1950 MALE Med Rec #: [id number] Physician: DAVID AWAD Financial #: [id number] Pt. Type: D Room/Bed: / Admit/Disch: 03/02/21 [...] Draper, Lora RN Role Performed Anesthesiologist of Outside Sales Representative Insurance Outside Sales Representative Insurance Record Time In 03/02/21 07:33:00 03/02/21 07:33:00 [...] Device Na (more content not included)... [facility] PACU Record MAGR PACU Record Summary Primary Physician: DAVID AWAD Finalized Date/Time: 03/02/21 13:11:26 Pt. Name: ZAINA WINTERS Carmen /Sex: 1950 MALE Med Rec #: [id number] Physician: DAVID AWAD Financial #: [id number] Pt. Type: D Room/Bed: [facility]/ Admit/Disch: 03/02/21 05:52:00 - Institution: PACU Case Times MAGR Entry 1 In PACU I 03/02/21 12:07:00 Discharge from PACU 03/02/21 12:58:00 I Last Modified By: Rosy Gaxiola RN 03/02/21 12:58:08 General Comments: Pt stable. VS stable. Pain level 8/10. Report given to LESLEY Velásquez at bedside. Finalized By: Rosy Gaxiola RN Document Signatures Signed By: Rosy Gaxiola RN 03/02/21 13:11 [facility] MAGR Preoperative Recordon 0 03-02-2021 MAGR Preoperative Record MAGR Pre-Op Record Summary Primary Physician: DAVID AWAD Finalized Date/Time: 03/02/21 08:24:03 Pt. Name: ZAINA WINTERS /Sex: 1950 MALE Med Rec #: [id number] Physician: DAVID AWAD Financial #: [id number] Pt. Type: D Room/Bed: / Admit/Disch: 03/02/21 [...] Signed By: Rita Molina RN 03/02/21 08:24 [facility] POCT Glucose Levelon 022 Glucose [Mass/Vol] 177 mg/dL High [address] [place] [address] Comment on above: Performed By: #### 4 [id number] #### [facility] (DEFAULT) [address] [place] [address] Glucose [Mass/Vol] 138 mg/dL High [address] [place] [address] Comment on above: Performed By: #### 4 [id number] ####[facility] (DEFAULT)[address] [place] [address] Patient Handouton 03-02-2021 Patient Handout POST OPERATIVE [...] #8 follow up in office with physician logging assistant Justo Redd as scheduled #9 NOMS [...] the nearest hospital's emergency services department. Normal [facility] [place] XR Knee One or Two Views Lef [...] MD 03/02/21 1:56 pm Technologist: Evelia ESCOBAR [facility] [place] 2019 Novel Coronavirus (CoVI D-19), JULISSA LCon 03-01-2021 SARS-CoV-2 (COVID-19) RNA JULISSA+probe Ql (Unsp spec) Not detected Invalid Interpretation Code Not Detected [facility] [place] Comment on above: Order Comment: [id number] Result Comment: This nucleic acid amplification test was developed and its performance characteristics determined by [employer]. Nucleic acid amplification tests include RT- PCR [...] detected) result in this assay. Performed At: [address] [id number] Zay Landa PhD Ph:[phone] Performed By: #### 1 [id number], [id number], [id number] #### [facility] (DEFAULT) [address] [place] [address] Progress Note - Nurseon 02-13 Progress Note - Nurse Pre-op call for 03-02-2021 surgery made- patient informed of arrival time of 0600 tomorrow ,NPO after midnight except for any medication that he was instructed to take in morning, hibiclens shower x2-patient with understanding. [Electronically Signed on: 03/01/2021 09:42 EST] Rita Molina RN [Verified on: 03/01/2021 09:42 EST] Rita Molina RN [facility] Progress Note - Nurseon - Progress Note - Nurse PAT review done per Dr. Mccauley, no orders received. [Electronically Signed on: 02/08/2021 10:37 EST] Oliva Rabago RN [Verified on: 02/08/2021 10:37 EST] Oliva Rabago RN [facility] .Auto Diff 02-04-2021 Auto Josephine % 10 % Normal 02-24 [facility] [place] Comment on above: Performed By: #### 1 [id number], [id number], [id number] ####[facility] (DEFAULT)[address] [place] [address] 16834 Baso Abs# 0.0 x10 Normal 0.0-0.2 [facility] [place] Comment on above: Performed By: #### 1 [id number], [id number], [id number] ####[facility] (DEFAULT)[address] [place] [address] 34783 Basophils/100 WBC (Bld) 0.3 % Normal 0.2-2.0 [facility] [place] Comment on above: Performed By: #### 1 [id number], [id number], [id number] ####[facility] (DEFAULT)[address] [place] [address] 22528 Eos Abs# 0.1 x10 Normal 0.0-0.4 [facility] [place] Comment on above: Performed By: #### 1 [id number], [id number], [id number] ####[facility] (DEFAULT)[address] [place] [address] 75042 Eosinophils/100 WBC (Bld) 1.1 % Normal 0.9-4.0 [facility] [place] Comment on above: Performed By: #### 1 [id number], [id number], [id number] ####[facility] (DEFAULT)[address] [place] [address] 14853 Lymph Abs# 2.0 x10 Normal 1.3-2.9 [facility] [place] Comment on above: Performed By: #### 1 [id number], [id number], [id number] ####[facility] (DEFAULT)[address] [place] [address] 69798 Lymphocytes/100 WBC (Bld) 27 % Normal 14-48 [facility] [place] Comment on above: Performed By: #### 1 [id number], [id number], [id number] ####[facility] (DEFAULT)[address] [place] [address] 89452 Josephine Abs# 0.7 x10 Normal 0.0-0.8 [facility] [place] Comment on above: Performed By: #### 1 [id number], [id number], [id number] ####[facility] (DEFAULT)[address] [place] [address] 26931 Neut Abs# 4.5 x10 Normal 1.5-9.2 [facility] [place] Comment on above: Performed By: #### 1 [id number], [id number], [id number] ####[facility] (DEFAULT)[address] [place] [address] 12158 Neutrophils/100 WBC (Bld) 62 % Normal 44-88 [facility] [place] Comment on above: Performed By: #### 1 [id number], [id number], [id number] ####[facility] (DEFAULT)[address] [place] [address] 46350 [facility] Standardon 02-04-2021 eGFR Non AA >60 Invalid Interpretation Code [facility] [place] Comment on above: Performed By: #### 1 [id number], [id number], [id number] ####[facility] (DEFAULT)[address] [place] [address] 18993 eGFR AA >60 Invalid Interpretation Code [facility] [place] Comment on above: Result Comment: Gas Fitter Apprentice korina Kidney disease could be indicated at eGFRs of less than 60 ml/min/1.73m2. Kidney Failure is indicated at less than 15 ml/min/1.73m2 Performed By: #### 1 [id number], [id number], [id number] ####[facility] (DEFAULT)[address] [place] [address] 17215 Anion gap [Moles/Vol] 14.0 mmol/L Normal 5.0-19.0 [facility] [place] Comment on above: Performed By: #### 1 [id number], [id number], [id number] ####[facility] (DEFAULT)[address] [place] [address] 23352 Calcium [Mass/Vol] 9.5 mg/dL Normal 8.9-10.3 [facility] Comment on above: Performed By: #### 1 [id number], [id number], [id number] ####[facility] (DEFAULT)[address] [place] [address] 71971 Chloride [Moles/Vol] 99 mmol/L Low 101-111 [facility] Comment on above: Performed By: #### 1 [id number], [id number], [id number] ####[facility] (DEFAULT)[address] [place] [address] 21098 CO2 [Moles/Vol] 28 mmol/L Normal 21-32 [facility] [place] Comment on above: Performed By: #### 1 [id number], [id number], [id number] ####[facility] (DEFAULT)[address] [place] [address] 20662 Creatinine [Mass/Vol] 0.89 mg/dL Low 0.90-1.30 [facility] [place] Comment on above: Performed By: #### 1 [id number], [id number], [id number] ####[facility] (DEFAULT)[address] [place] [address] 35618 Glucose [Mass/Vol] 135.0 mg/dL High 74.0-118.0 [facility] Comment on above: Performed By: #### 1 [id number], 77435498, [id number] ####[facility] (DEFAULT)[address] [place] [address] 35756 Osmolality 278 mOsm/L Invalid Interpretation Code [facility] [place] Comment on above: Performed By: #### 1 [id number], [id number], [id number] ####[facility] (DEFAULT)[address] [place] [address] 51085 Potassium [Moles/Vol] 4.1 mmol/L Normal 3.6-5.1 [facility] [place] Comment on above: Performed By: #### 1 [id number], 93749269, 2389479 ####[facility] (DEFAULT)[address] [place] [address] 37693 Sodium [Moles/Vol] 137.0 mmol/L Normal 136.0-144.0 [facility] Comment on above: Performed By: #### 1 [id number], [id number], 1552813 ####[facility] (DEFAULT)[address] [place] [address] 46532 Urea nitrogen [Mass/Vol] 19 mg/dL Normal 8-26 [facility] [place] Comment on above: Performed By: #### 1 [id number], [id number], 4066513 ####[facility] (DEFAULT)[address] [place] [address] 08235 Urea nitrogen/Creatinine [Mass ratio] 21.0 mg/mg High 4.6-16.2 [facility] [place] Comment on above: Performed By: #### 1 [id number], 84550201, 0695301 ####[facility] (DEFAULT)[address] [place] [address] 81719 CBC w/ Auto Diffon 1 Erythrocyte distribution width (RBC) [Ratio] 13.4 % Normal 11.5-15.0 [facility] [place] Comment on above: Performed By: #### 1 [id number], [id number], [id number] ####[facility] (DEFAULT)[address] [place] [address] Hematocrit (Bld) [Volume fraction] 48.0 % Normal 34.8-51.9 [facility] [place] Comment on above: Performed By: #### 1 [id number], [id number], 8402919 ####[facility] (DEFAULT)[address] [place] [address] Hemoglobin (Bld) [Mass/Vol] 15.5 g/dL Normal 11.8-17.7 [facility] [place] Comment on above: Performed By: #### 1 [id number], 84656684, 5094809 ####[facility] (DEFAULT)[address] [place] [address] Instr WBC 7.3 x10 Invalid Interpretation Code [facility] [place] Comment on above: Performed By: #### 1 [id number], [id number], 1446819 ####[facility] (DEFAULT)[address] [place] [address] Man Diff? Auto Normal [facility] [place] Comment on above: Performed By: #### 1 [id number], [id number], 0237946 ####[facility] (DEFAULT)[address] [place] [address] 15367 MCH (RBC) [Entitic mass] 30 pg Normal 24-34 [facility] [place] Comment on above: Performed By: #### 1 [id number], 70876130, 1228175 ####[facility] (DEFAULT)[address] [place] [address] 96256 MCHC (RBC) [Mass/Vol] 32 g/dL Normal 26-37 [facility] [place] Comment on above: Performed By: #### 1 [id number], 07590158, 9810131 ####[facility] (DEFAULT)[address] [place] [address] 06515 MCV (RBC) [Entitic vol] 94 fL Normal 81-100 [facility] [place] Comment on above: Performed By: #### 1 [id number], 44369512, [id number] ####[facility] (DEFAULT)[address] [place] [address] 42621 Platelet 196 x10 Normal 138-427 [facility] [place] Comment on above: Performed By: #### 1 [id number], 21953025, 5807823 ####[facility] (DEFAULT)[address] [place] [address] 17923 Platelet mean volume (Bld) [Entitic vol] 10.3 fL High 6.3-10.2 [facility] [place] Comment on above: Performed By: #### 1 [id number], 80608549, 8904147 ####[facility] (DEFAULT)[address] [place] [address] 25774 RBC 5.13 x10 Normal 3.70-5.30 [facility] [place] Comment on above: Performed By: #### 1 [id number], [id number], 3381041 ####[facility] (DEFAULT)[address] [place] [address] 71464 WBC 7.3 x10 Normal 3.5-10.5 [facility] [place] Comment on above: Performed By: #### 1 [id number], 72983393, 3791380 ####[facility] (DEFAULT)[address] [place] [address] 09220 UA w Culture if Ind Standard on 02-04-2021 Breakpoint UA [facility] Comment on above: Performed By: #### 1 [id number] #### [facility] (DEFAULT) [address] [place] [address] 22982 Color (U) Yellow Normal [facility] [place] Comment on above: Performed By: #### 1 [id number] #### [facility] (DEFAULT) [address] [place] [address] 02807 Culture? No [facility] Comment on above: Result Comment: Resu lt created by rule GL_MAGR_ADD_UA_CULT1 Result created by rule GL_MAGR_ADD_UA_CULT1 Performed By: #### 1 [id number] #### [facility] (DEFAULT) [address] [place] [address] 89483 Glucose (U) [Mass/Vol] Negative Normal [facility] [place] Comment on above: Performed By: #### 1 [id number] #### [facility] (DEFAULT) [address] [place] [address] 67689 Ketones Ql (U) Negative Normal [facility] [place] Comment on above: Performed By: #### 1 [id number] #### [facility] (DEFAULT) [address] [place] [address] 43610 Micro? Not Indicated [facility] Comment on above: Result Comment: Resu lt created by rule GL_MAGR_ADD_UA_MICRO Performed By: #### 1 [id number] #### [facility] (DEFAULT) [address] [place] [address] 56800 UA Bilirubin Negative Normal [facility] [place] Comment on above: Performed By: #### 1 [id number] #### [facility] (DEFAULT) [address] [place] [address] 26780 UA Blood Negative Normal NEGATIVE [facility] [place] Comment on above: Performed By: #### 1 [id number] #### [facility] (DEFAULT) [address] [place] [address] 88637 UA Clarity CLEAR Normal CLEAR [facility] [place] Comment on above: Performed By: #### 1 [id number] #### [facility] (DEFAULT) [address] [place] [address] 97353 UA Leuk Est Negative Normal NEGATIVE [facility] [place] Comment on above: Performed By: #### 1 [id number] #### [facility] (DEFAULT) [address] [place] [address] 23465 UA Nitrite Negative Normal NEGATIVE [facility] [place] Comment on above: Performed By: #### 1 [id number] #### [facility] (DEFAULT) [address] [place] [address] 42342 UA pH 6.0 Normal 5-8 [facility] [place] Comment on above: Performed By: #### 1 [id number] #### [facility] (DEFAULT) [address] [place] [address] 44672 UA Protein Negative Normal NEGATIVE [facility] [place] Comment on above: Performed By: #### 1 [id number] #### [facility] (DEFAULT) [address] [place] [address] 01636 UA Spec Grav >=1.030 Normal 1.001-1.035 [facility] [place] Comment on above: Performed By: #### 1 [id number] #### [facility] (DEFAULT) [address] [place] [address] UA Urobilinogen 0.2 mg/dL Normal 0.2-1.0 [facility] [place] Comment on above: Performed By: #### 1 [id number] #### [facility] (DEFAULT) [address] [place] [address] Urine Source Clean Catch [facility] Comment on above: Performed By: #### 1 [id number] #### [facility] (DEFAULT) [address] [place] [address] XR Bone Length Studies [facility] 02-04-2021 XR Bone Length Studies [...] leg length discrepancy. Final Dictated by: John Mcknena MD Dictated DT/TM: 02/08/21 6:18 Signed (Electronic Signature): John Mckenna MD 02/08/21 7:27 am Technologist: LTAbilio Matthews [facility] Echo 2D w doppler w color co mpleteOrdered By: Ej Foster on 09-23-2020 [facility] Transthoracic Echocardiography Report (TTE) Patient Name HEBERLING Date of Study 09/23/2020 ZAINA Morales Date of 1950 Gender Male Age 69 year(s) Race Room Number Height: 72 inch, 182.88 cm Corporate ID [id number] Weight: 288 pounds, 130.6 kg # Patient Acct [id number] BSA: 2.49 m^2 BMI: 39.06 # kg/m^2 MR # [id number] Tractor Sweeper Operator Debi Lopez Interpreting Physician Ej Foster Fellow Referring Nurse Practitioner Interpreting Referring Physician Ej Foster Type of Study TTE procedure:2D Echocardiogram, M-Mode, Doppler, Color Doppler. Procedure Date Date: 09/23/2020 Start: 11:32 AM Study Location: [facility] Indications:Atrial fibrillation. History / Tech. Comments: [...] TR Velocity: 2.17 m/s Peak TR Gradient: 18.51174 mmHg Estimated RA Pressure: 3 mmHg Estimated PASP: 21.79 mmHg Diastology / Tissue Doppler Lateral Wall E' velocity:0.07 m/s Lateral Wall E/E':7.23 [facility] [employer] Work Phone: Shankar, [employer] Incoming Cardio Results From [facility]/[employer] - 09/23/2020 5:27 PM EDT [facility] Transthoracic Echocardiography Report (TTE) Patient Name HEBERLING Date of Study 09/23/2020 ZAINA Morales Date of 1950 Gender Male Age 69 year(s) Race Room Number Height: 72 inch, 182.88 cm Corporate ID [id number] Weight: 288 pounds, 130.6 kg # Patient Acct [id number] BSA: 2.49 m^2 BMI: 39.06 # kg/m^2 MR # [id number] Tractor Sweeper Operator Debi Lopez Interpreting Physician Ej Foster Fellow Referring Nurse Practitioner Interpreting Referring Physician Ej Foster Type of Study TTE procedure:2D Echocardiogram, M-Mode, Doppler, Color Doppler. Procedure Date Date: 09/23/2020 Start: 11:32 AM Study Location: [facility] Indications:Atrial fibrillation. History / Tech. Comments: [...] TR Velocity: 2.17 m/s Peak TR Gradient: 18.92895 mmHg Estimated RA Pressure: 3 mmHg Estimated PASP: 21.79 mmHg Diastology / Tissue Doppler Lateral Wall E' velocity:0.07 m/s Lateral Wall E/E':7.23 [employer] Phone: [employer] Phone: Basic Metabolic Panelon 02-14 Anion gap [Moles/Vol] 10 mmol/L 9 - 17 mmol/L [place] Bun/Cre Ratio 21 High [place] Calcium [Mass/Vol] 9.7 mg/dL 8.6 - 10. 4 mg/dL [place] Chloride [Moles/Vol] 101 mmol/L 98 - 10 7 mmol/L [place] CO2 [Moles/Vol] 28 mmol/L 20 - 31 mmol/L [place] Creatinine [Mass/Vol] 0.89 mg/dL 0.7 - 1.2 mg/dL [place] GFR >60 >60 mL/min [place] GFR Non- >60 >60 mL/min [place] Glucose [Mass/Vol] 101 mg/dL High 70 - 99 mg/dL [place] Interpretation and review of laboratory results Abnormal [place] Potassium [Moles/Vol] 4.3 mmol/L 3.7 - 5.3 mmol/L [place] Sodium [Moles/Vol] 139 mmol/L 135 - 144 mmol/L [place] Urea nitrogen [Mass/Vol] 19 mg/dL 8 - 23 mg/dL [place] Lipid Panelon 03-10-2020 Cholesterol [Mass/Vol] 162 mg/dL <200 [place] Comment on above: Cholesterol Guidelines: <200 Desirable 200-240 Borderline >240 Undesirable Cholesterol in HDL [Mass/Vol] 41 mg/dL >40 [place] Comment on above: HDL Guidelines: <40 Undesirable 40-59 Borderline >59 Desirable Cholesterol in LDL [Mass/Vol] 102 mg/dL 0 - 130 mg/dL [place] Comment on above: LDL Guidelines: <100 Desirable 100-129 Near to/above Desirable 130-159 Borderline >159 Undesirable Direct (measured) LDL and calculated LDL are not interchangeable tests. Cholesterol in VLDL [Mass/Vol] NOT REPORTED 1 - 30 mg/dL [place] Cholesterol.total/Ch olesterol in HDL [Mass ratio] 4 {ratio} <5 [place] Triglyceride [Mass/Vol] 97 mg/dL <150 [place] Comment on above: Triglyceride Guidelines: <150 Desirable 150-199 Borderline 200-499 High >499 Very high Based on AHA Guidelines for fasting triglyceride, November 2011. Metabolic Panelon 03-10-2020 GFR/1.73 sq M predicted among non-blacks MDRD (S/P/Bld) [Vol rate/Area] [place] Comment on above: Stage 1: Some [...] body mass. Additional eGFR calculator available at: http://www.[employer]/multiple_crcl_2012.htm Basic Metabolic Panelon 12-0 Anion gap [Moles/Vol] 9 mmol/L 9 - 17 mmol/L [place] Bun/Cre Ratio 16 [place] Calcium [Mass/Vol] 9.6 mg/dL 8.6 - 10. 4 mg/dL [place] Chloride [Moles/Vol] 101 mmol/L 98 - 10 7 mmol/L [place] CO2 [Moles/Vol] 29 mmol/L 20 - 31 mmol/L [place] Creatinine [Mass/Vol] 0.76 mg/dL 0.7 - 1.2 mg/dL [place] GFR >60 >60 mL/min [place] GFR Non- >60 >60 mL/min [place] Glucose [Mass/Vol] 118 mg/dL High 70 - 99 mg/dL [place] Interpretation and review of laboratory results Abnormal [place] Potassium [Moles/Vol] 4.7 mmol/L 3.7 - 5.3 mmol/L [place] Sodium [Moles/Vol] 139 mmol/L 135 - 144 mmol/L [place] Urea nitrogen [Mass/Vol] 12 mg/dL 8 - 23 mg/dL [place] CBCon 01-22-2020 Erythrocyte distribution width (RBC) [Ratio] 14.2 % 11.8 - 14.4 % [place] Hematocrit (Bld) [Volume fraction] 43.4 % 40.7 - 50.3 % [place] Hemoglobin (Bld) [Mass/Vol] 13.4 g/dL 13 - 17 g/dL [place] MCH (RBC) [Entitic mass] 28.9 pg 25.2 - 33.5 pg [place] MCHC (RBC) [Mass/Vol] 30.9 g/dL 28.4 - 34.8 g/dL [place] MCV (RBC) [Entitic vol] 93.7 fL 82.6 - 102.9 fL [place] Platelet mean volume (Bld) [Entitic vol] 9.9 fL 8.1 - 13.5 fL [place] Platelets (Bld) [#/Vol] 217 10*3/uL [place] RBC (Bld) [#/Vol] 4.63 10*6/uL 4.21 - 5.7 7 m/uL [place] WBC (Bld) [#/Vol] 0.0 10*3/uL 0.0 per 10 0 WBC [place] WBC (Bld) [#/Vol] 5.7 10*3/uL [place] ECHO Complete 2D W Doppler W Coloron 01-22-2020 [facility] Transthoracic Echocardiography Report (TTE) Patient Name HEBERLING Date of Study 01/22/2020 ZAINA D Date of 1950 Gender Male Age 69 year(s) Race Room Number Height: 73 inch, 185.42 cm Corporate ID [id number] Weight: 273 pounds, 123.8 kg # Patient Acct [id number] BSA: 2.46 m^2 BMI: 36.02 # kg/m^2 MR # [id number] Tractor Sweeper Operator Nini Todd Interpreting Physician Ej Foster Fellow Referring Nurse Practitioner Interpreting Referring Physician Ej Foster Type of Study TTE procedure:2D Echocardiogram, M-Mode, Doppler, Color Doppler. Procedure Date Date: 01/22/2020 Start: 09:22 AM Study Location: [facility] Indications:Atrial fibrillation, Dyspnea/SOB and History of [...] Wall E' velocity:0.11 m/s Lateral Wall E/E':6.91 [facility] [place], [place] Shankar, Mhpn Incoming Cardio Results From [facility]/ - 01/22/2020 5:08 PM EST [facility] Transthoracic Echocardiography Report (TTE) Patient Name SINGH Date of Study 01/22/2020 ZAINA Morales Date of 1950 Gender Male Age 69 year(s) Race Room Number Height: 73 inch, 185.42 cm Corporate ID [id number] Weight: 273 pounds, 123.8 kg # Patient Acct [id number] BSA: 2.46 m^2 BMI: 36.02 # kg/m^2 MR # [id number] Tractor Sweeper Operator Work,Nini Interpreting Physician Ej Foster Fellow Referring Nurse Practitioner Interpreting Referring Physician Ej Foster Fellow Type of Study TTE procedure:2D Echocardiogram, M-Mode, Doppler, Color Doppler. Procedure Date Date: 01/22/2020 Start: 09:22 AM Study Location: [facility] Indications:Atrial fibrillation, Dyspnea/SOB and History of [...] Wall E' velocity:0.11 m/s Lateral Wall E/E':6.91 [place], [place] Hemoglobin A1Con 01-22-2020 Glucose [Mass/Vol] 123 mg/dL [place] Comment on above: The ADA and AACC rec ommend providing the estimated average glucose result to permit better patient understanding of their HBA1c result. HbA1c (Bld) [Mass fraction] 5.9 % 4 - 6 % [place] Metabolic Panelon 01-22-2020 GFR/1.73 sq M predicted among non-blacks MDRD (S/P/Bld) [Vol rate/Area] [place] Comment on above: Stage 1: Some [...] body mass. Additional eGFR calculator available at: http://www.[employer]_crcl_2012.htm Troponin Ion 01-22-2020 Troponin I.cardiac [Mass/Vol] NOT REPORTED [place] Troponin T.cardiac [Mass/Vol] NOT REPORTED <0.03 ng/mL [place] Troponin, High Sensitivity 15 ng/L 0 - 22 ng/L [place] Comment on above: High Sensitivity Troponin values cannot be compared with other Troponin methodologies. Patients with high levels of Biotin oral intake (i.e >5mg/day) may have falsely decreased Troponin levels. Samples collected within 8 hours of biotin intake may require additional information for diagnosis. BNPon 12-16-2019 Natriuretic peptide B (Bld) [Mass/Vol] 595.0 pg/mL Normal <=900.0 [facility] Comment on above: Performed By: #### T ROP, BNP, CMP, CRP #### [facility] [address] [place], [place] [address] Cheryl Srinivasan CBC AUTO DIFFon 12-16-2019 Basophils (Bld) [#/Vol] 0.0 103/ul Normal 0.0-0.1 [facility] Comment on above: Performed By: #### C BC #### [facility] [address] [place], [place] [address] Cheryl Zarina Basophils/100 WBC (Bld) 0.1 % Critically low 0.2-2.0 [facility] Comment on above: Performed By: #### C BC #### [facility] [address] [place], [place] [address] Cheryl Zarina Eosinophils (Bld) [#/Vol] 0.0 103/ul Normal 0.0-0.7 [facility] Comment on above: Performed By: #### C BC #### [facility] [address] [place], [place] [address] Cheryl Zarina Eosinophils/100 WBC (Bld) 0.0 % Critically low 0.9-7.0 [facility] Comment on above: Performed By: #### C BC #### [facility] [address] [place] [id number] Cheryl Zarina Erythrocyte distribution width (RBC) [Ratio] 12.9 % Normal 11.0-15.0 [facility] Comment on above: Performed By: #### C BC #### [facility] [address] [place] [phone] Cheryl Zarina Hematocrit (Bld) [Volume fraction] 45.2 % Normal 42.0-54.0 [facility] Comment on above: Performed By: #### C BC #### [facility] [address] [place], [place] [address] Cheryl Zarina Hemoglobin (Bld) [Mass/Vol] 15.1 g/dL Normal 14.0-18.0 [facility] Comment on above: Performed By: #### C BC #### [facility] [address] [place] [id number] Cheryl Zarina IG # 0.06 10e3/ul Critically high 0.00-0.03 [facility] Comment on above: Performed By: #### C BC #### [facility] [address] [place] [phone] Cheryl Zarina IG % 0.6 % Critically high 0.0-0.5 [facility] Comment on above: Performed By: #### C BC #### [facility] [address] [place] [phone] Cheryl Zarina Lymphocytes (Bld) [#/Vol] 1.0 103/ul Critically low 1.2-3.8 [facility] Comment on above: Performed By: #### C BC #### [facility] [address] [place], [place] [phone] Cheryl Zarina Lymphocytes/100 WBC (Bld) 10.1 % Critically low 20.5-60.0 [facility] Comment on above: Performed By: #### C BC #### [facility] [address] [place], [place] [phone] Cheryl Zarina MANUAL DIFF REQ NO Normal [facility] Comment on above: Performed By: #### C BC #### [facility] [address] [place], [place] [phone] Cheryl Zarina MCH (RBC) [Entitic mass] 30.0 pg Normal 25.9-34.0 [facility] Comment on above: Performed By: #### C BC #### [facility] [address] [place], [place] [phone] Cheryl Zarina MCHC (RBC) [Mass/Vol] 33.4 g/dL Normal 29.9-35.2 [facility] Comment on above: Performed By: #### C BC #### [facility] [address] [place], [place] [phone] Cheryl Zarina MCV (RBC) [Entitic vol] 89.7 fL Normal 80.0-94.0 [facility] Comment on above: Performed By: #### C BC #### [facility] [address] [place], [place] [phone] Cheryl Zarina Monocytes (Bld) [#/Vol] 0.3 103/ul Normal 0.3-0.8 [facility] Comment on above: Performed By: #### C BC #### [facility] [address] [place], [place] [phone] Cheryl Zarina Monocytes/100 WBC (Bld) 3.4 % Normal 1.7-12.0 [facility] Comment on above: Performed By: #### C BC #### [facility] [address] [place], [place] [address] Cheryl Zarina Neutrophils (Bld) [#/Vol] 8.3 103/ul Critically high 1.4-6.5 [facility] Comment on above: Performed By: #### C BC #### [facility] [address] [place], [place] [address] Cheryl Zarina Neutrophils/100 WBC (Bld) 85.8 % Critically high 43.0-75.0 [facility] Comment on above: Performed By: #### C BC #### [facility] [address] [place], [place] [address] Cheryl Zarina Platelet mean volume (Bld) [Entitic vol] 9.7 fL Normal 9.5-13.5 [facility] Comment on above: Performed By: #### C BC #### [facility] [address] [place], [place] [address] Cheryl Zarina Platelets (Bld) [#/Vol] 270 103/ul Normal 150-450 [facility] Comment on above: Performed By: #### C BC #### [facility] [address] [place], [place] [address] Cheryl Zarina RBC (Bld) [#/Vol] 5.04 106/ul Normal 4.70-6.10 [facility] Comment on above: Performed By: #### C BC #### [facility] [address] [place], [place] [address] Cheryl Zarina WBC (Bld) [#/Vol] 9.7 103/ul Normal 4.0-11.0 [facility] Comment on above: Performed By: #### C BC #### [facility] [address] [place], [place] [address] Cheryl Zarina CRPon 12-16-2019 CRP [Mass/Vol] 12.3 mg/dL Critically high <=1.0 [facility] Comment on above: Performed By: #### C BC #### [facility] [address] [place], [place] [address] Cheryl Zarina CTA CHEST WO W CONon 020 CTA [...] RUPESH ULRICH Date: 2019-12-16 05:43 Normal [facility] D-DIMERon 12-16-2019 D-DIMER COMMENTS SEE BELOW Normal [facility] Comment on above: Result Comment: Incr eases [...] By: #### D DIM, PT, PTT #### [facility] [address] [place], [place] [address] Cheryl Srinivasan Fibrin D-dimer FEU IA (Bld) [Mass/Vol] 0.84 ug/mL Critically high 0.19-0.50 [facility] Comment on above: Result Comment: test repeated critcal value verified Performed By: #### D DIM, PT, PTT #### [facility] [address] [place], [place] [address] Cheryl Srinivasan LACTATE/LACTIC ACIDon 2019 Lactate [Moles/Vol] 1.8 mmol/L Normal 0.7-2.0 [facility] Comment on above: Performed By: #### L ACT #### [facility] [address] [place] [phone] Cheryl Srinivasan PROF 14(COMP METB)on 020 Albumin [Mass/Vol] 3.2 g/dL Critically low 3.5-5.0 [facility] Comment on above: Performed By: #### T ROP, BNP, CMP, CRP #### [facility] [address] [place] [phone] Cheryl Zarina Albumin/Globulin [Mass ratio] 0.8 {ratio} Normal [facility] Comment on above: Performed By: #### T ROP, BNP, CMP, CRP #### [facility] [address] [place] [address] Cheryl Zarina ALP [Catalytic activity/Vol] 85 U/L Normal 38-126 [facility] Comment on above: Performed By: #### T ROP, BNP, CMP, CRP #### [facility] [address] [place] [address] Cheryl Zarina ALT [Catalytic activity/Vol] 63 U/L Normal 21-72 [facility] Comment on above: Performed By: #### T ROP, BNP, CMP, CRP #### [facility] [address] [place] [phone] Cheryl Zarina Anion gap [Moles/Vol] 14.2 mmol/L Normal [facility] Comment on above: Performed By: #### T ROP, BNP, CMP, CRP #### [facility] [address] [place] [address] Cheryl Zarina AST [Catalytic activity/Vol] 53 U/L Normal 17-59 [facility] Comment on above: Performed By: #### T ROP, BNP, CMP, CRP #### [facility] [address] [place] [phone] Cheryl Zarnia Bilirubin Ql (U) 1.0 mg/dL Normal 0.2-1.3 [facility] Comment on above: Performed By: #### T ROP, BNP, CMP, CRP #### [facility] [address] [place] [address] Cheryl Zarina Calcium [Mass/Vol] 9.0 mg/dL Normal 8.4-10.2 [facility] Comment on above: Performed By: #### T ROP, BNP, CMP, CRP #### [facility] [address] [place] [address] Cheryl Zarina Chloride [Moles/Vol] 96 mmol/L Critically low 98-107 [facility] Comment on above: Performed By: #### T ROP, BNP, CMP, CRP #### [facility] [address] [place] [address] Cheryl Zarina CO2 [Moles/Vol] 25.8 mmol/L Normal 22.0-30.0 [facility] Comment on above: Performed By: #### T ROP, BNP, CMP, CRP #### [facility] [address] [place] [address] Cheryl Zarina Creatinine [Mass/Vol] 0.90 mg/dL Normal 0.66-1.25 [facility] Comment on above: Performed By: #### T ROP, BNP, CMP, CRP #### [facility] [address] [place] [address] Cheryl Zarina EGFR-AF CHILEAN >60 Normal >=60 [facility] Comment on above: Performed By: #### T ROP, BNP, CMP, CRP #### [facility] [address] [place] [address] Cheryl Zarina EGFR-NON AF CHILEAN >60 Normal >=60 [facility] Comment on above: Performed By: #### T ROP, BNP, CMP, CRP #### [facility] [address] [place] [address] Cheryl Zarina Globulin (S) [Mass/Vol] 4.1 g/dL Normal [facility] Comment on above: Performed By: #### T ROP, BNP, CMP, CRP #### [facility] [address] [place] [address] Cheryl Zarina Glucose [Mass/Vol] 146 mg/dL Critically high 74-106 [facility] Comment on above: Performed By: #### T ROP, BNP, CMP, CRP #### [facility] [address] [place] [address] Cheryl Zarina Potassium [Moles/Vol] 4.0 mmol/L Normal 3.4-5.0 [facility] Comment on above: Performed By: #### T ROP, BNP, CMP, CRP #### [facility] [address] [place] [address] Cheryl Zarina Protein [Mass/Vol] 7.3 g/dL Normal 6.1-8.2 [facility] Comment on above: Performed By: #### T ROP, BNP, CMP, CRP #### [facility] [address] [place] [address] Cheryl Zarina Sodium [Moles/Vol] 132 mmol/L Critically low 137-145 [facility] Comment on above: Performed By: #### T ROP, BNP, CMP, CRP #### [facility] [address] [place] [address] Cheryl Zarina Urea nitrogen [Mass/Vol] 18.0 mg/dL Normal 9.0-20.0 [facility] Comment on above: Performed By: #### T ROP, BNP, CMP, CRP #### [facility] [address] [place] [address] Cheryl Zarina Urea nitrogen/Creatinine [Mass ratio] 20.0 mg/mg Normal [facility] Comment on above: Performed By: #### T ROP, BNP, CMP, CRP #### [facility] [address] [place] [address] Cheryl Zarina PROTIMEon 12-16-2019 INR Coag (PPP) [Relative time] 0.97 {INR} Normal [facility] Comment on above: Performed By: #### D DIM, PT, PTT #### [facility] [address] [place] [address] Cheryl Zarina PT Coag (PPP) [Time] PLEASE NOTE: NORMAL RANGE CHANGE 10-31-2013 DUE TO REAGENT LOT CHANGE Normal [facility] Comment on above: Performed By: #### D DIM, PT, PTT #### [facility] [address] [place], [place] [address] Cheryljason Srinivasan PT Coag (PPP) [Time] 10.3 s Normal 9.0-11.6 [facility] Comment on above: Performed By: #### D DIM, PT, PTT #### [facility] [address] [place], [place] [address] Cheryl Zarina PT Coag (PPP) [Time] SEE BELOW Normal [facility] Comment on above: Result Comment: CHEMO RED INR: 2.0 - 3.0 CONDITIONS NOT LISTED BELOW 2.5 - 3.5 FOR PROSTHETIC HEART VALVE REPLACEMENT 2.5 - 3.5 RECURRENT THROMBOSIS Performed By: #### D DIM, PT, PTT #### [facility] [address] [place] [address] Cheryljason Srinivasan PTTon 12-16-2019 aPTT Coag (Bld) [Time] PLEASE NOTE: NORMAL RANGE CHANGE 01-07-2015 DUE TO REAGENT LOT CHANGE Normal [facility] Comment on above: Performed By: #### D DIM, PT, PTT #### [facility] [address] [place], [place] [address] Cheryljason Srinivasan aPTT Coag (Bld) [Time] 26.0 s Normal 22.3-36.2 [facility] Comment on above: Performed By: #### D DIM, PT, PTT #### [facility] [address] [place], [place] [phone] Cheryl Srinivasan Rapid Covid-19 PCRon 020 [employer] LDT Info SEE BELOW Normal [facility] Comment on above: Result Comment: This test is not yet approved or cleared by the [place] Food and Drug Administration (FDA) . This test was developed by [employer] [place]. The performance characteristics of this test were validated by [facility]. The results are not intended to be used as the sole means for clinical diagnosis or patient management decisions. The [facility] is authorized under Clinical Laboratory Improvement Amendments (CLIA) to perform high-complexity testing. When diagnostic testing is negative, the possibility of a false negative should be considered in the context of a patients recent exposures and the presence of clinical signs and symptoms consistent with SARS-CoV-2. Performed By: #### C VDRPD #### [facility] [address] [place], [place] [address] Cheryl Srinivasan SARS-CoV-2 DETECTED NOT DETECTED [facility] Comment on above: Result Comment: . Performed By: #### C VDRPD #### [facility] [address] [place], [place] [address] Cheryl Srinivasan TROPONIN - Ion 12-16-2019 Troponin I.cardiac [Mass/Vol] ng/mL Normal <=0.034 [facility] Comment on above: Performed By: #### C BC #### [facility] [address] [place] [phone] Cheryl Zarina Troponin I.cardiac [Mass/Vol] SEE BELOW Normal [facility] Comment on above: Result Comment: <0.0 34 ng/ml NEGATIVE 0.034-0.119 INDETERMINATE 0.120 AMI CUT OFF Performed By: #### C BC #### [facility] [address] [place], [place] [phone] Cheryl Srinivasan Vital Signs Date Time Vital Sign Value Performing Clinician Faci lity 02-23-2024 12:30-0500 Diastolic blood pressure 97 mm[Hg] Ej Foster MD [facility] 02-23-2024 12:30-0500 Heart rate 57 /min Ej Foster MD [facility] 02-23-2024 12:30-0500 Respiratory rate 17 /min Ej Foster MD [facility] 02-23-2024 12:30-0500 SaO2% (BldA) [Mass fraction] 96 % Ej Foster MD [facility] 02-23-2024 12:30-0500 Systolic blood pressure 131 mm[Hg] Ej Foster MD [facility] 02-23-2024 12:11-0500 Body temperature 96.8 [degF] Ej Foster MD Work Phone: [facility] 02-20-2024 14:13-0500 Body height 181.6 cm Kenia Castillo FIELD NATURALIST Work Phone: [facility] 02-20-2024 14:13-0500 Body mass index (BMI) [Ratio] 43.07 kg/m2 Kenia Castillo FIELD NATURALIST Work Phone: [facility] 02-20-2024 14:13-0500 Body weight 142.07 kg Kenia Castillo FIELD NATURALIST Work Phone: [facility] 02-20-2024 14:13-0500 Diastolic blood pressure 60 mm[Hg] Kenia Castillo FIELD NATURALIST Work Phone: [facility] 02-20-2024 14:13-0500 Heart rate 98 /min Kenia Castillo FIELD NATURALIST Work Phone: [facility] 02-20-2024 14:13-0500 SaO2% (BldA) [Mass fraction] 95 % Kenia Castillo FIELD NATURALIST Work Phone: [facility] 02-20-2024 14:13-0500 Systolic blood pressure 120 mm[Hg] Kenia Castillo FIELD NATURALIST Work Phone: [facility] 02-05-2024 14:54-0500 Body height 182.9 cm [facility] 1 [facility] 02-05-2024 14:54-0500 Body mass index (BMI) [Ratio] 41.88 kg/m2 Mth 1 [facility] [employer] 02-05-2024 14:54-0500 Body weight 140.1 kg Mth 1 [facility] 02-05-2024 14:54-0500 Diastolic blood pressure 77 mm[Hg] Mth 1 [facility] [employer] 02-05-2024 14:54-0500 Systolic blood pressure 120 mm[Hg] Mth 1 [facility] [employer] 12-26-2023 13:04-0500 Body mass index (BMI) [Ratio] 38.92 kg/m2 Jeannine Evangelista FIELD NATURALIST Work Phone: [facility] 12-26-2023 13:04-0500 Body temperature 97.39 [degF] Jeannine Evangelista FIELD NATURALIST Work Phone: [facility] 12-26-2023 13:04-0500 Body weight 133.81 kg eJannine Moseleyk FIELD NATURALIST Work Phone: [facility] 12-26-2023 13:04-0500 Diastolic blood pressure 74 mm[Hg] Jeannine Blanchardtrick FIELD NATURALIST Work Phone: [facility] 12-26-2023 13:04-0500 Systolic blood pressure 160 mm[Hg] Jeannine Moseleyk FIELD NATURALIST Work Phone: [facility] 11-15-2023 12:53-0400 Body height 185.4 cm Arianna Lou DPM Work Phone: [facility] 11-15-2023 12:53-0400 Body mass index (BMI) [Ratio] 40.13 kg/m2 Arianna Lou DPM Work Phone: [facility] 11-15-2023 12:53-0400 Body weight 137.98 kg Arianna Lou DPM Work Phone: [facility] 10-11-2023 08:58-0400 Body mass index (BMI) [Ratio] 40.13 kg/m2 Kenia Castillo FIELD NATURALIST Work Phone: [facility] 10-11-2023 08:58-0400 Body temperature 96.69 [degF] Kenia Cordonjtvictor manuel FIELD NATURALIST Work Phone: [facility] 10-11-2023 08:58-0400 Body weight 137.98 kg Kenia Castillo FIELD NATURALIST Work Phone: [facility] 10-11-2023 08:58-0400 Diastolic blood pressure 86 mm[Hg] Kenia Cordonjtvictor manuel FIELD NATURALIST Work Phone: [facility] 10-11-2023 08:58-0400 Heart rate 67 /min Kenia Cordonjtvictor manuel FIELD NATURALIST Work Phone: [facility] 10-11-2023 08:58-0400 SaO2% (BldA) [Mass fraction] 95 % Kenia Castillo FIELD NATURALIST Work Phone: [facility] 10-11-2023 08:58-0400 Systolic blood pressure 132 mm[Hg] Kenia Jonathan FIELD NATURALIST Work Phone: [facility] 02-12-2020 09:31-0500 Pulse Oximetry 98 % [facility]j [facility] [place] 02-12-2020 09:30-0500 BP Diastolic 73 mm[Hg] Ej [employer] [place] , [place] 02-12-2020 09:30-0500 BP Systolic 135 mm[Hg] Ej [facility] [place] 02-12-2020 09:30-0500 Pulse (Heart Rate) 56 /min [facility] [place] 02-12-2020 09:30-0500 Respiratory Rate 22 /min [facility]j [facility] [place] 02-12-2020 07:14-0500 BMI (Body Mass Index) 36.89 kg/m2 [facility]j [facility] [place] 02-12-2020 07:14-0500 Body weight 123.38 kg Ej [facility] [place] 02-12-2020 07:14-0500 Height 182.9 cm [facility] [place] Encounters Encounter Date Encounter Type Care Provider Facility Start: 04-01-2024 End: 04-01-2024 ambulatory Ever Guillen MD Facility: [facility] Start: 03-22-2024 End: 03-22-2024 Refill Kenia Castillo FIELD NATURALIST Work Phone: [facility] Comment on above: Primary hypertension (CMS/HCC) Start: 03-04-2024 End: 03-04-2024 ambulatory Ever Guillen MD Facility: [facility] Start: 02-23-2024 End: 02-25-2024 ambulatory EJ FOSTER [facility] Start: 02-23-2024 End: 02-25-2024 Subsequent hospital visit by physician Ej Foster MD Work Phone: [facility] [place] [facility] Comment on above: Paroxysmal atrial fi brillation (HCC) (Primary Dx); PAF (paroxysmal atrial fibrillation) (HCC) AF (paroxysmal atria l fibrillation) (HCC) Start: 02-20-2024 End: 02-20-2024 ambulatory KENIA CASTILLO Not Available Start: 02-20-2024 End: 02-20-2024 Bamboo flowsheet Kenia Jonathan FIELD NATURALIST Work Phone: [facility] Start: 02-20-2024 End: 02-20-2024 Bamboo flowsheet Kenia Jonathan FIELD NATURALIST Work Phone: [facility] Start: 02-20-2024 End: 02-20-2024 Patient encounter procedure Kenia Jonathan QURESHI Work Phone: [facility] Comment on above: Encounter for [facility] examination (Primary Dx); Mixed hyperlipidemia (CMS/HCC); [...] 02-20-2024 End: 02-20-2024 Patient encounter status Kenia Cordonayush QURESHI Work Phone: [facility] Start: 02-19-2024 End: 02-19-2024 Edilma Adam MD Work Phone: [facility] Comment on above: Type 2 diabetes magnolia itus with diabetic peripheral angiopathy without gangrene ([facility]/HCC) Start: 02-05-2024 End: 02-07-2024 ambulatory SHALINI MORROW [facility] Start: 02-05-2024 End: 02-07-2024 Subsequent hospital visit by physician Rebeka Echo 1 [facility] Non-Invasive Cardiology Comment on above: Permanent atrial fib rillation ([facility]); Chronic anticoagulation; Essential hypertension; Type 2 diabetes mellitus with diabetic nephropathy, without long-term current use of insulin ([facility]); History of COVID-19; Obesity, Class III, BMI 40-49.9 (morbid obesity) Start: 01-31-2024 End: 01-31-2024 Refill Bernie Adam MD Work Phone: [facility] Comment on above: Restless legs syndro me Start: 01-01-2024 End: 01-01-2024 Orders Only Jeannine Evangelista FIELD NATURALIST Work Phone: [facility] Comment on above: Bronchitis (Primary Dx) Start: 12-29-2023 End: 02-12-2024 Orders Only Jeannine Evangelista FIELD NATURALIST Work Phone: [facility] Comment on above: Bronchitis Start: 12-28-2023 End: 12-28-2023 Refill Bernie Adam MD Work Phone: [facility] Comment on above: Bronchitis Bronchitis (Primary Dx) Start: 12-26-2023 End: 12-26-2023 Bamboo flowsheet Jeannine Evangelista FIELD NATURALIST Work Phone: [facility] Start: 12-26-2023 End: 12-26-2023 Bamboo flowsheet Jeannine Evangelista FIELD NATURALIST Work Phone: [facility] Start: 12-26-2023 End: 12-26-2023 Office outpatient visit 15 minutes Jeannine Evangelista FIELD NATURALIST Work Phone: [facility] Comment on above: Acute right otitis m edia (Primary Dx); Bronchitis Start: 12-26-2023 End: 12-26-2023 ambulatory JEANNINE Naty EVANGELISTA Not Available Start: 12-21-2023 End: 12-21-2023 Telephone encounter Bernie Adam MD Work Phone: [facility] Start: 11-15-2023 End: 11-15-2023 Bamboo flowsheet Arianna Lou DPM Work Phone: [facility] Start: 11-15-2023 End: 11-15-2023 Bamboo flowsheet Arianna Lou DPM Work Phone: [facility] Start: 11-15-2023 End: 11-15-2023 Patient encounter procedure Arianna Lou DPM Work Phone: [facility] Comment on above: Dermatophytosis of n ail (Primary Dx); Dystrophic nail; Pain around toenail, right foot; Pain around toenail, left foot Start: 11-15-2023 End: 11-15-2023 ambulatory ARIANNA LOU Not Available Start: 11-13-2023 End: 11-13-2023 ambulatory Ever Guillen MD Facility:[facility] Start: 10-23-2023 End: 10-24-2023 Refill Kenia Castillo NP Work Phone: [facility] Comment on above: Paroxysmal atrial fi brillation (CMS/HCC) Start: 10-23-2023 End: 10-23-2023 [facility]ulatory [facility] Start: 10-11-2023 End: 10-11-2023 Bamboo flowsheet Kenia Castillo NP Work Phone: [facility] Start: 10-11-2023 End: 10-11-2023 Bamboo flowsheet Kenia Castillo NP Work Phone: [facility] Start: 10-11-2023 End: 10-11-2023 Office outpatient visit 15 minutes Kenia Castillo NP Work Phone: [facility] Comment on above: Dental abscess (Prim ora Dx) Start: 10-11-2023 End: 10-11-2023 ambulatory KENIA KAMPFER Not Available Start: 09-19-2023 End: 09-19-2023 ambulatory KENIA KAMPFER Not Available Start: 09-18-2023 End: 09-18-2023 ambulatory Ever Guillen MD Facility:[facility] Start: 07-24-2023 End: 07-24-2023 ambulatory Ever Guillen MD Facility:[facility] Start: 07-20-2023 End: 07-20-2023 ambulatory ARIANNA LOU Not Available Start: 07-18-2023 End: 07-18-2023 ambulatory KENIA KAMPFER Not Available Start: 06-19-2023 End: 06-19-2023 ambulatory BOBBY PINK Not Available Start: 06-14-2023 End: 06-30-2023 ambulatory DAVID AWAD [facility] Start: 06-09-2023 End: 06-09-2023 ambulatory KENIA CASTILLO Not Available Start: 05-24-2023 End: 05-24-2023 ambulatory DAVID HENDRICKSON Not Available Start: 05-23-2023 End: 05-23-2023 ambulatory Marina Redd Facility:[facility] Start: 05-23-2023 End: 05-23-2023 ambulatory FIELD NATURALIST-C Jeannine Evangelista Work Phone: [facility] Work Phone: Start: 05-23-2023 End: 05-23-2023 Patient encounter procedure FIELD NATURALIST-C Jeannine Evangelista Work Phone: [facility] [address] Work Phone: Start: 05-11-2023 End: 05-11-2023 ambulatory FIELD NATURALIST-C Jeannine Evangelista Work Phone: [facility] Work Phone: Start: 05-11-2023 End: 05-11-2023 Patient encounter procedure FIELD NATURALIST-C Jeannine Tonja Work Phone: [facility] [address] Work Phone: Start: 04-24-2023 End: 04-24-2023 ambulatory MARINA REDD Not Available Start: 04-20-2023 End: 04-20-2023 ambulatory YULIYA ROMERO Not Available Start: 04-18-2023 End: 04-18-2023 ambulatory YULIYA ROMERO Not Available Start: 04-12-2023 End: 04-12-2023 ambulatory YULIYA Juan ROMERO Not Available Start: 04-10-2023 End: 04-10-2023 ambulatory YULIYA ROMERO Not Available Start: 04-05-2023 End: 04-05-2023 ambulatory YULIYA ROMERO Not Available Start: 03-30-2023 Telephone encounter Yuliya lantigua PT Work Phone: [facility] Comment on above: re: [employer] for PT (He called noting he had just gotten verification per [facility] that if referring provider refers for therapy then PT would be covered. He gave a reference # [id number].) Start: 03-29-2023 Telephone encounter Yuliya lantigua PT [...] so.) Start: 03-28-2023 Telephone encounter Maddie Latham RANGE AIDE [facility] Comment on above: re: [...] encounter Start: 03-14-2023 End: 03-14-2023 ambulatory MARINA Elysia REDD Not Available Start: 03-06-2023 End: 03-06-2023 ambulatory MARINA REDD Not Available Start: 03-01-2023 End: 03-01-2023 ambulatory ARIANNA Alfonso STEFFANY Not Available Start: 09-23-2020 End: 09-23-2020 Subsequent hospital visit by physician [facility] Echo Room [facility] Echocardiography Comment on above: Persistent atrial fi brillation (HCC); SOB (shortness of breath); Essential hypertension; Other specified diabetes mellitus with other specified complication, unspecified whether oil heaterman insulin use (HCC); Class 2 obesity with body mass index (BMI) of 36.0 to 36.9 in adult, unspecified obesity type, unspecified whether serious comorbidity present; Pain in both lower extremities Start: 03-10-2020 End: 03-12-2020 Subsequent hospital visit by physician [facility] Vascular Imaging Room [facility] Laboratory Comment on above: Controlled type 2 di abetes mellitus with hyperglycemia, without long-term current use of insulin (HCC); Persistent atrial fibrillation (HCC); SOB (shortness of breath); Essential hypertension; Other specified diabetes mellitus with other specified complication, unspecified whether halfway insulin use (HCC); Class 2 obesity with body mass index (BMI) of 36.0 to 36.9 in adult, unspecified obesity type, unspecified whether serious comorbidity present; COVID-19; Fluid retention; Pain in both lower extremities Pain in both lower e xtremities; PVD (peripheral vascular disease) (HCC) Start: 02-12-2020 End: 02-12-2020 Subsequent hospital visit by physician Ej Foster Work Phone: [facility] ICU Comment on above: Arrived Start: 01-22-2020 End: 01-22-2020 Subsequent hospital visit by physician [facility] Echo Room [facility] Echocardiography Comment on above: Persistent atrial fi brillation (HCC); Essential hypertension; SOB (shortness of breath); Fluid retention; Other specified diabetes mellitus with other specified complication, unspecified whether halfway insulin use (HCC); Class 2 obesity with body mass index (BMI) of 36.0 to 36.9 in adult, unspecified obesity type, unspecified whether serious comorbidity present Start: 12-16-2019 End: 12-16-2019 Patient encounter procedure [facility] Facility: Start: 12-11-2019 End: 12-11-2019 Subsequent hospital visit by physician [facility] Covid Screening Schedule [facility] Covid Screening Comment on above: Arrived Procedures Date Procedure Procedure Detail Performing Clinician Start: 02-23-2024 End: 02-23-2024 Ecg routine ecg w/least 12 lds w/i&r Ej Foster MD Work Phone: Start: 02-23-2024 Ecg routine ecg w/le ast 12 lds w/i&r Ej Foster MD Work Phone: Start: 02-20-2024 Urine albumin quantitative Kenia Castillo FIELD NATURALIST Work Phone: Start: 02-20-2024 Lipid panel Kenia rush FIELD NATURALIST Work Phone: Start: 02-20-2024 Comprehensive metabo lic panel Kenia Castillo FIELD NATURALIST Work Phone: Start: 02-05-2024 Echo tthrc r-t [...] above: Performed By: #### B [id number] #### [facility] [address] [id number] Cheryl Srinivasan Performed By: #### C BC #### [facility] [address] [place], [place] [address] Cheryl Srinivasan Plan of Treatment Date Care Activity Detail Author Start: 11-28-2028 DTaP/Tdap/Td vaccine (2 - Td or Tdap) DTaP/Tdap/Td vaccine (2 - Td or Tdap) [facility] Start: 11-28-2028 DTaP/Tdap/Td vaccine (2 - Td) DTaP/Tdap/Td vaccine (2 - Td) [place] Start: 02-19-2025 Medicare Annual Wellness (AWV) Medicare Annual Wellness (AWV) [facility] Start: 02-19-2025 Urine screening for protein Diabetes: Urine Protein Screening [facility] Start: 06-27-2024 Screening for malignant neoplasm of colon Colorectal Cancer Screening [facility] Comment on above: Postponed from 1948 (Patient Refus ed) Start: 06-08-2024 Urine screening for protein Diabetes: Urine Protein Screening [facility] Start: 05-20-2024 Hemoglobin A1c measurement Diabetes: Hemoglobin A1C [facility] Start: 05-20-2024 End: 05-20-2024 Patient encounter procedure 05/20/2024 2:00 PM EDT Office Visit [facility] [address] [facility] [place] [phone] Kenia Castillo NP [address] [place] [address] [facility] Start: 04-15-2024 End: 04-15-2024 Patient encounter procedure 04/15/2024 2:30 PM EST Procedure Visit [facility] [address] [place] [phone] Arianna Lou DPM [address] [place], [place] [phone] [facility] Start: 03-21-2024 End: 03-21-2024 Patient encounter procedure 03/21/2024 2:00 PM EST Office Visit [facility] [address] [phone] Shalini Morrow PA-C [address] [place] [address] [id number] week [facility] Comment on above: 4 week Start: 03-19-2024 End: 03-19-2024 Patient encounter procedure 03/19/2024 1:00 PM EST Procedure Visit [facility] [address] [place] [phone] Arianna Lou DPM [address] [place] [address] [facility] Start: 03-04-2024 End: 03-04-2024 Patient encounter procedure 03/04/2024 1:00 PM EST Office Visit [facility] [address] [place] [phone] Marina Redd PA [address] [place] [address] [place] [address] [facility] Start: 02-22-2024 End: 02-22-2024 Patient encounter procedure 02/22/2024 3:00 PM EST Office Visit [facility] [address] [place] [phone] Shalini Morrow PA-C [address] [place] [address] 2 week [facility] Comment on above: 2 week Start: 02-22-2024 Annual Wellness Visit (Medicare) Annual Well[facility] (Medicare) [facility] Start: 02-20-2024 End: 02-20-2024 Patient encounter procedure 02/20/2024 2:00 PM EST Office Visit [facility] [address] [place] [phone] Kenia Castillo NP [address] [place] [address] [facility] Start: 01-17-2024 End: 01-17-2024 Patient encounter procedure 01/17/2024 2:00 PM EST Office Visit [facility] [address] [place] [phone] Kenia Castillo NP [address] [place] [address] [facility] Start: 12-20-2023 Hemoglobin A1c measurement Diabetes: Hemoglobin A1C [facility] Start: 12-03-2023 Medicare Annual Wellness (AWV) Medicare Annual Wellness (AWV) [facility] Start: 11-15-2023 End: 11-15-2023 Patient encounter procedure [facility] Comment on above: Arrived Start: 11-02-2023 Urine screening for protein Diabetes: Urine Protein Screening [facility] Start: 10-15-2023 Influenza vaccination Influenza Vaccine (#1) [facility] Start: 10-11-2023 End: 10-11-2023 Patient encounter procedure 10/11/2023 9:00 AM EDT Office Visit [facility] [address] [place] [phone] Kenia Castillo, FIELD NATURALIST [address] [place] [address] Arrived [facility] Comment on above: Arrived Start: 06-14-2023 End: 06-14-2023 Patient encounter procedure 06/14/2023 1:30 PM EDT Procedure Visit [facility] [address] [place] [phone] Arianna Lou, DP [address] [place] [address] [facility] Start: 06-09-2023 End: 06-09-2023 Patient encounter procedure 06/09/2023 1:00 PM EDT Office Visit [facility] [address] [place] [phone] Kenia Castillo NP [address] [facility] [place] [address] [facility] Start: 05-04-2023 GFR test (Diabetes, CKD 3-4, OR last GFR 15-59) GFR test (Diabetes, CKD 3-4, OR last GFR 15-59) [facility] Start: 04-17-2023 End: 04-17-2023 Patient encounter procedure 04/17/2023 1:30 PM EST Office Visit [facility] [address] [facility] [address] [place] [phone] Marina Redd PA [address] [facility] [address] [place] [address] [facility] Start: 04-13-2023 End: 04-13-2023 ambulatory 04/13/2023 1:00 PM EST Treatment [facility] [address] [place] [address] Yuliya Romero, PT [address] [place] [address] [facility] Start: 04-11-2023 End: 04-11-2023 ambulatory 04/11/2023 1:00 PM EST Treatment [facility] [address] [place] [address] Maddie Latham, RANGE AIDE [facility] Start: 04-06-2023 End: 04-06-2023 ambulatory 04/06/2023 2:00 PM EST Treatment [facility] [address] [place] [address] Maddie Latham, RANGE AIDE [facility] Start: 04-05-2023 End: 04-05-2023 ambulatory 04/05/2023 1:00 PM EST Treatment [facility] [address] [place] [address] Valerie Argueta, PT [facility] Start: 04-04-2023 End: 04-04-2023 ambulatory 04/04/2023 1:00 PM EST Treatment [facility] [address] [place] [address] Maddie Latham, RANGE AIDE [facility] Start: 03-30-2023 End: 03-30-2023 ambulatory 03/30/2023 2:00 PM EST Treatment [facility] [address] [place] [address] Maddie Latham, RANGE AIDE [facility] Start: 03-28-2023 End: 03-28-2023 ambulatory 03/28/2023 1:30 PM EST Treatment [facility] [address] [place] [address] Maddie Latham, RANGE AIDE [facility] Start: 03-23-2023 End: 03-23-2023 ambulatory 03/23/2023 1:00 PM EST Evaluation [facility] [address] [facility] [address] [place] [address] Trisha Yuliya Martinez, PT [address] [facility] [place] [address] Left thigh pain; Muscle strain of left thigh, subsequent encounter [facility] Comment on above: Left thigh pain; Muscle strain of left thigh, subsequent encounter Start: 01-31-2023 Hemoglobin A1c measurement Diabetes: Hemoglobin A1C [facility] Start: 01-09-2023 Annual Wellness Visit (Medicare) Annual Wellness Visit (Medicare) [facility] Start: 12-02-2022 Glaucoma screening Diabetes: Retinopathy Screening [facility] Start: 09-30-2021 End: 09-30-2021 Patient encounter procedure 09/30/2021 Office Visit Cardiology Ej Foster MD [facility] [place] [address] [facility] Start: 03-10-2021 Creatinine measurement Creatinine monitoring [place], [place] Start: 03-10-2021 HbA1c (Bld) [Mass fraction] A1C test (Diabetic or Prediabetic) [place] Start: 03-10-2021 Hemoglobin A1c measurement A1C test (Diabetic or Prediabetic) [facility] Start: 03-10-2021 Lipid panel [facility] Start: 03-10-2021 Potassium monitoring Potassium monitoring [place] Start: 01-21-2021 Creatinine measurement Creatinine monitoring [facility] [place] Start: 01-21-2021 HbA1c (Bld) [Mass fraction] A1C test (Diabetic or Prediabetic) [place] Start: 01-21-2021 Potassium monitoring Potassium monitoring [place] Start: 10-14-2020 Influenza vaccination Flu vaccine (#1) [facility] Work Phone: Start: 09-16-2020 End: 09-16-2020 Office Visit 09/16/2020 Office Visit Cardiology Ej Foster MD [facility] [place] [address] [phone] [facility] Start: 03-10-2020 End: 03-10-2020 Office Visit 03/10/2020 Office Visit Cardiology Ej Foster MD [address] [place] [address] [phone] [facility] Start: 02-21-2020 End: 02-21-2020 Office Visit 02/21/2020 Office Visit Cardiology Ej Foster MD [address] [place] [address] [phone] [facility] Start: 01-30-2020 End: 01-30-2020 Office Visit 01/30/2020 Office Visit Cardiology Ej Foster MD [address] [place] [address] [phone] [facility] Start: 12-11-2019 Annual Wellness Visit (AWV) Annual Wellness Visit (AWV) [place] Start: 10-15-2019 Influenza vaccination Flu vaccine (#1) [place] Start: 2013 Pneumococcal 65+ years Vaccine (1 of 1 - PPSV23) Pneumococcal 65+ years Vaccine (1 of 1 - PPSV23) [place] Start: 2013 Pneumococcal 65+ years Vaccine (2 of 2 - PPSV23) Pneumococcal 65+ years Vaccine (2 of 2 - PPSV23) [place] Start: 07-17-2012 Shingles Vaccine (2 of 3) Shingles Vaccine (2 of 3) [facility] Start: 1998 Screening for malignant neoplasm of colon Colon cancer screen colonoscopy [place] Start: 1998 Shingles Vaccine (1 of 2) Shingles Vaccine (1 of 2) [place] Start: 1993 Screening for malignant neoplasm of colon [facility] Start: 1988 Lipid panel Lipid screen [place] Start: 10-04-1967 DTaP/Tdap/Td vaccine (1 - Tdap) DTaP/Tdap/Td vaccine (1 - Tdap) [place] Start: 1966 Diabetic microalbuminuria test Diabetic microalbuminuria test [place] Start: 1966 Glaucoma screening Diabetic retinal exam [facility] Start: 1966 Hepatitis C screening Hepatitis C screen [facility] Start: 1966 Urine screening for protein Diabetic Alb to Cr ratio (uACR) test [facility] Start: 1960 Depression Screen Depression Screen [facility] Start: 1958 Diabetic foot examination Diabetic foot exam [facility] Start: 1958 Diabetic retinal exam Diabetic retinal exam [place] Start: 1958 Lipid panel Lipid screen [place] Start: 1948 Creatinine measurement Creatinine monitoring [place], [place] Start: 1948 Hepatitis C screening Hepatitis C screen [place] Start: 1948 Potassium monitoring Potassium monitoring [place] Start: 1948 Screening for malignant neoplasm of colon [facility] End: 02-23-2024 Cardioversion external [facility] Comment on above: 1 Occurrences starting 02/23/2024 until 02/23/2024 End: 02-12-2020 Catheterization and angiography procedure details panel 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 Procedure Cardiac Cath Routine One Time for 1 Occurrences starting 02/12/2020 until 02/12/2020 [place] Comment on above: One Time for 1 Occurrences starting 01/15 until 02/12/2020 Continuous pulse oximetry Pulse oximetry, continuous Respiratory Care Routine Every 4hr until discontinued starting 02/12/2020 [place] Comment on above: Every 4hr until discontinued starting End: 12-11-2019 Covid-19 Ambulatory Covid-19 Ambulatory Lab Routine Once for 1 Occurrences starting 12/11/2019 until 12/11/2019 [place] Comment on above: Once for 1 Occurrences starting 12/11/19 20 until 12/11/2019 Covid-19 Ambulatory Covid-19 Amb ulatory Lab Routine 12/11/2019 2:27 PM [facility] 12 Lead ECG Routine 02/12/2020 8:26 AM [facility]J [facility] End: 02-12-2020 End Tidal CO2 Continuous End Tidal CO2 Continuous Respiratory Care Routine Continuous until discontinued starting 02/12/2020 [facility] Comment on above: Continuous until discontinued starting 1 End: 02-23-2024 Extended cardiac holter monitor (3 day-14 day) [facility] Comment on above: One Time for 1 Occurrences starting 02/13 until 02/23/2024 End: 02-05-2024 Extended cardiac holter monitor (3 days-14 day) [facility] Comment on above: 1 Occurrences starting 02/05/2024 until 02/05/2024 End: 02-26-2024 Extended cardiac holter monitor (3 days-14 day) [facility] Comment on above: 1 Occurrences starting 02/26/2024 until 02/26/2024 End: 03-10-2020 HbA1c (Bld) [Mass fraction] Hemoglobin A1C Lab Routine Controlled type 2 diabetes mellitus with hyperglycemia, without long-term current use of insulin ([facility]) 1 Occurrences starting 03/10/2020 until 03/10/2020 [facility] [place] Comment on above: 1 Occurrences starting 03/10/2020 until 03/10/2020 HbA1c (Bld) [Mass fraction] Hemoglobin A1C Lab Routine Controlled type 2 diabetes mellitus with hyperglycemia, without long-term current use of insulin ([facility]) 03/10/2020 12:35 PM [facility]J [facility] End: 02-23-2024 INITIATE PACU OXYGEN THERAPY PROTOCOL Initiate PACU Oxygen Therapy Protocol Respiratory Care Routine Continuous until discontinued starting 02/23/2024 [facility] Comment on above: Continuous until discontinued starting 0 02/23/2024 Oxygen therapy [[facility] Data Set] Initiate Oxygen Therapy Protocol Respiratory Care Routine Daily until discontinued starting 02/12/2020 [facility] [place] Comment on above: Daily until discontinued starting 2019 End: 03-10-2020 VL LOWER EXTREMITY ARTERIAL SEGMENTAL PRESSURES W PPG VL LOWER EXTREMITY ARTERIAL SEGMENTAL PRESSURES W PPG Imaging STAT Pain in both lower extremities PVD (peripheral vascular disease) ([facility]) 1 Occurrences starting 03/10/2020 until 03/10/2020 [place] Comment on above: 1 Occurrences starting 03/10/2020 until 03/10/2020 VL LOWER EXTREMITY ARTERIAL SEGMENTAL PRESSURES W PPG VL LOWER EXTREMITY ARTERIAL SEGMENTAL PRESSURES W PPG Imaging STAT Pain in both lower extremities PVD (peripheral vascular disease) ([facility]) 03/10/2020 1:24 PM EST [place] Immunizations Immunization Date Immunization Notes Care Provider [facility] 11-21-2023 influenza, high dose seasonal, preservative-free Kenia Castillo FIELD NATURALIST Work Phone: [facility] 11-21-2023 Pneumococcal Conjuga te PCV 20 Kenia Castillo FIELD NATURALIST Work Phone: [facility] 11-21-2023 SARS-COV-2 (COVID-19 ) vaccine, mRNA, spike protein, LNP, PF, 50 mcg/0.5 mL Kenia Castillo FIELD NATURALIST Work Phone: [facility] 12-05-2022 RSV, recombinant, pr otein subunit RSVpreF, adjuvant reconstitu, 120mcg/0.5mL, PF (Arexvy) Kenai Castillo FIELD NATURALIST Work Phone: [facility] 12-02-2022 pneumococcal polysaccharide vaccine, 23 valent Yuliya Romero PT Work Phone: [facility] 11-01-2022 influenza, high dose seasonal, preservative-free Yuliya Romero PT Work Phone: [facility] 11-01-2022 influenza virus vacc ine, unspecified formulation Kenia Castillo FIELD NATURALIST Work Phone: [facility] 11-01-2021 Influenza, Seasonal, Quadrivalent, Adjuvanted Yuliya Romero PT Work Phone: [facility] 11-01-2021 SARS-COV-2 (COVID-19 ) vaccine, mRNA, spike protein, LNP, bivalent, preservative free, 30 mcg/0.3 mL dose, mauro-sucrose formulation Yuliya Romero PT Work Phone: [facility] 11-01-2021 SARS-CoV-2, Unspecified Jamie Romero PT Work Phone: [facility] 10-30-2021 Influenza, High-dose Seasonal, Quadrivalent, Preservative Free Yuliya Romero PT Work Phone: [facility] 11-12-2020 Influenza, High-dose Seasonal, Quadrivalent, Preservative Free Yuliya Romero PT Work Phone: [facility] 11-11-2020 Influenza, High-dose Seasonal, Quadrivalent, Preservative Free Yuliya Romero PT Work Phone: [facility] 11-11-2020 Pfizer Purple Cap SARS-CoV-2 Vaccination Yuliya Romero PT Work Phone: [facility] 04-12-2020 Pfizer Purple Cap SARS-CoV-2 Vaccination Yuliya Romero PT Work Phone: [facility] 03-19-2020 Pfizer Purple Cap SARS-CoV-2 Vaccination Yuliya Romero PT Work Phone: [facility] 11-28-2019 influenza, injectabl e, quadrivalent, preservative free Yuliya Romero PT Work Phone: [facility] 11-28-2018 influenza, injectabl e, quadrivalent, preservative free Yuliya Romero PT Work Phone: [facility] 11-28-2018 tetanus toxoid, redu hiral diphtheria toxoid, and acellular pertussis vaccine, adsorbed Yuliya Romero PT Work Phone: [facility] 11-27-2018 influenza, high dose seasonal, preservative-free Yuliya Romero PT Work Phone: [facility] 11-27-2017 influenza, high dose seasonal, preservative-free Yuliya Romero PT Work Phone: [facility] 11-27-2017 Influenza, High-dose Seasonal, Quadrivalent, Preservative Free Yuliya Blackston PT Work Phone: [facility] 11-22-2016 influenza, injectabl e, quadrivalent, contains preservative Yuliya Blackston PT Work Phone: [facility] 11-22-2016 influenza, injectabl e, quadrivalent, preservative free Yuliya Blackston PT Work Phone: [facility] 07-29-2015 pneumococcal conjuga te vaccine, 13 valent Yuliya Maryton PT Work Phone: [facility] 01-21-2015 influenza, seasonal, injectable, preservative free Yuliya Blackston PT Work Phone: [facility] 12-11-2013 influenza, injectabl e, quadrivalent, preservative free Yuliya Blackston PT Work Phone: [facility] 03-13-2013 influenza, seasonal, injectable Yuliya Blackston PT Work Phone: [facility] 03-13-2013 influenza, seasonal, injectable, preservative free Yuilya Blackston PT Work Phone: [facility] 03-13-2013 pneumococcal polysaccharide vaccine, 23 valent Yuliyaalberto Hernandezton PT Work Phone: [facility] 05-22-2012 zoster vaccine, live Yuliyaalberto Romero PT Work Phone: [facility] 02-02-2012 influenza, seasonal, injectable Yuliya Blackston PT Work Phone: [facility] Payers Date Payer Category Payer Self-pay 2023 Medicare [id number] 2023 Medicare (Managed Care) [employer] [id number] 2023 Private Health Insurance [employer] [id number] 2023 Medicare [id number] 2023 Unknown [id number] 1.13.693.2. [id number] 1959 Medicare [id number] [id number]. [id number] 1959 Unknown [id number] 1948 Unknown [id number] 2.16.840.1.415586.3.579.2. 593 1948 Unknown [id number] 2.16.840.1.181912.3.579.2. 1286 1948 Unknown [id number] 2.16.840.1.218823.3.579.2. 128 1948 Unknown [id number] 2.16.840.1.543960.3.579.2. 1286 1948 Unknown [id number] 2.16.840.1.908101.3.579.2. 1259 1948 Unknown [id number] 2.16.840.1.654607.3.579.2. 1259 1948 Unknown [id number] 2.16.840.1.097600.3.579.2. 125 1948 Unknown [id number] 2.16.840.1.755393.3.579.2. 125 1948 Unknown [id number] 2.16.840.1.226082.3.579.2. 125 1948 Unknown [id number] 2.16.840.1.502485.3.579.2. 1259 1948 Unknown [id number] 2.16840.1.011184.3.579.2. 1258 1948 Unknown [id number] 2.16.840.1.791156.3.579.2. 125 1948 Unknown [id number] 2.16.840.1.857316.3.579.2. 125 1948 Unknown [id number] 2.16.840.1.729384.3.579.2. 1259 1948 Unknown [id number] 2.16840.1.065289.3.579.2. 125 1948 Unknown [id number] 2.16.840.1.404854.3.579.2. 1259 1948 Unknown [id number] 2.16.840.1.956446.3.579.2. 125 1948 Unknown [id number] 2.16.840.1.165529.3.579.2. 125 1948 Unknown [id number] 2.16.840.1.515566.3.579.2. 125 1948 Unknown [id number] 2.16.840.1.182133.3.579.2. 1259 1948 Unknown [id number] 2.16.840.1.162535.3.579.2. 1259 1948 Unknown [id number] 2.16.840.1.589796.3.579.2. 1259 1948 Unknown [id number] 2.16.840.1.847433.3.579.2. 1259 1948 Unknown [id number] 2.16.840.1.773937.3.579.2. 1259 1948 Unknown [id number] 2.16.840.1.763792.3.579.2. 1259 1948 Unknown [id number] 2.16.840.1.121820.3.579.2. 1259 1948 Unknown [id number] 2.16840.1.536327.3.579.2. 1259 1948 Unknown [id number] 2.16.840.1.904724.3.579.2. 1259 1948 Unknown [id number] 2.16.840.1.276029.3.579.2. 173 1948 Unknown [id number] 2.16.840.1.417432.3.579.2. 173 1948 Unknown [id number] 2.16.840.1.186067.3.579.2. 173 1948 Unknown [id number] 2.16.840.1.481486.3.579.2. 173 1948 Unknown [id number] 2.16.840.1.341013.3.579.2. 196 1948 Unknown [id number] 2.16.840.1.543506.3.579.2. 196 1948 Unknown [id number] 2.16.840.1.220684.3.579.2. 196 1948 Unknown [id number] 2.16.840.1.594853.3.579.2. 196 1948 Unknown [id number] 2.16.840.1.535115.3.579.2. 196 1948 Unknown [id number] 2.16.840.1.457460.3.579.2. Unknown [id number] 2.16.840.1.498023.3.579.2. 531 Social History Date Type Detail Facility Tobacco smoking stat us ILIS Unknown if ever smoked [place] Start: 1950 Sex Assigned At Not on file [place] Start: 01-22-2020 End: 08-02-2022 Tobacco smoking status NHIS Never smoker [place] Start: 01-22-2020 End: 08-02-2022 Tobacco use and exposure Never used [place] Start: 03-10-2020 End: 02-20-2024 Alcohol intake Current drinker of alcohol (finding) [place] Start: 02-12-2020 Alcohol Comment having had sin ce December [place] Exposure to SARS-CoV -2 (event) Not sure [place] Start: 09-16-2020 End: 12-02-2022 Alcohol intake [facility] Work Phone: Start: 12-02-2022 End: 03-14-2023 Tobacco use panel [facility] Start: 10-25-2022 Alcohol Comment drinks alcohol 2-3 times a week [facility] Start: 1950 Sex Assigned At Male F [facility] How often to you hav [...] 02-23-2024 Alcohol Comment occasional [place] [facility] Clinical Notes 09-23-2020 to 02-23-2024 Jannet Martinez RN - 02/23/2024 12:42 PM Jannet Gardner RN - 02/23/2024 12:41 PM Ej Elmore MD - 02/23/2024 12:00 PM ESTDischarge Adina Castillo NP - 02/20/2024 2:00 PM EST [...] included. Mr. Winters Date of : 1950 [id number] Procedure: Cardioversion Pre-operative Diagnosis: Persistent atrial fibrillation, symptomatic Post-operative Diagnosis: Successful cardioversion to NSR with 300J biphasic Anesthesia: General Anesthesia. Provided by our anesthesia team. Procedure: The procedure was done in the [facility] [employer]. Benefits, risks and alternatives were explained to the patient and he agreed to proceed. Informed consent obtained. A separate informed consent obtained by our anesthesia team. Timeout obtained by the [employer] nurse. The defibrillator pads were attached in [...] cardiac medications. Ej Foster MD, MS, F.A.C.C. [facility], [place] [address] , documented in this encounter [facility] 02-23-2024 Hospital Discharge instructions Jannet Martinez [...] doctor prescribes. Do not take any vitamins, pybq-gkf-zgfxztm medicines, or herbal products without talking to [...] or uneven pulse. After calling 911, the glycerin operator may tell you to chew 1 [...] Where can you learn more? Go to [email or web address] and sign in to your [employer] account. Enter A617 in the Search Health Information box to learn more about Electrical Cardioversion: What to Expect at Home. If you do not have an account, please click on the Sign Up Now link. [employer]. Care instructions adapted under license by [employer]. This care instruction is for use with your licensed healthcare professional. If you have questions about a medical condition or this instruction, always ask your healthcare professional. [employer] disclaims any warranty or liability for your use of this information. Content Version: 10.6.188323; Current as of: April 04, 2014 documented in this encounter [facility] 02-20-2024 History of Present illness Narrative Images from the original note were not included. Zaina Winters is a 73 y.o. male presents with chief complaint of Medicare Annual Wellness Visit Subsequent HPI: HPI Getting an ablation on , having a procedure done by pain management soon sees pain management at [facility]. Send results to Dr. Mata at [facility] Has an appointment with eye in March in [place]. Not using cpap tried different mask couldn't [...] taxes?: Yes Cognitive Screening Three Word Registration: Irish Brito, Table Clock Drawing: Normal Clock - 2 [...] Do not crush, chew, or split. HYDROcodone-acetaminophen (Frohna) 5-325 MG tablet 1 tablet, 2 times [...] independence. Living will and durable power of immigration attorney reviewed. Updated patient problem list and reviewed all current medications with patient. Given time to ask questions. Mixed hyperlipidemia ([facility]) - Lipid panel; Future -On a statin Primary hypertension ([facility]) - Comprehensive metabolic panel; Future - Lipid [...] -Stable Body mass index (BMI) 40.0-44.9, adult (CMS/HCC) documented in this encounter [facility] 01-01-2024 Telephone encounter Note Sent prescription. [facility] 01-01-2024 Miscellaneous Notes Sent prescription. Informed patient that [facility] and he states I told her those don't work for me He wants you to send something stronger. [facility] Addended by: RHONA HERRERA on: 12/29/2023 10:45 AM Modules accepted: [facility] [place]. I believe the tessalon perles were sent. Patient was seen on 12/25 and has been taking otc cough syrup and it is not helping at all. He is requesting a prescription for cough syrup sent to [facility] in [place]. Ty documented in this encounter [facility] 01-01-2024 History of Present illness Narrative Prescription sent documented in this encounter [facility] 12-29-2023 Telephone encounter Note I sent in a few days of steroids to help with cough [facility] 12-29-2023 Miscellaneous Notes I sent in a few days of steroids to help with cough Can something else be sent in for pt to help with cough other than lucio tolbert? Please contact pt with response. [facility] [place] documented in this encounter [facility] 12-29-2023 Telephone encounter Note Can something else be sent in for pt to help with cough other than lucio tolbert? Please contact pt with response. [facility] [place] [facility] 12-29-2023 Telephone encounter Note Informed patient that [facility] and he states I told her those don't work for me He wants you to send something stronger. [facility] 12-29-2023 Telephone encounter Note [facility] to [facility] 12-29-2023 History of Present illness Narrative Prescription sent documented in this encounter [facility] 12-29-2023 Note Addended by: Mirna HERRERA on: 12/29/2023 10:45 AM Modules accepted: Orders [facility] 12-29-2023 Telephone encounter Note [facility] [place]. I believe the tessalon perles were sent. [facility] 12-28-2023 History of Present illness Narrative Prescription sent documented in this encounter [facility] 12-28-2023 Telephone encounter Note Patient was seen on 12/25 and has been taking otc cough syrup and it is not helping at all. He is requesting a prescription for cough syrup sent to [facility] in [place]. Ty [facility] 12-26-2023 History of Present illness Narrative Images [...] mg, Oral, 3 times daily PRN HYDROcodone-acetaminophen (Frohna) 5-325 MG tablet 1 tablet, Oral, 2 [...] symptoms worsen documented in this encounter [facility] 12-21-2023 Telephone encounter Note Quentin called - was in for ear infection etc last week . Now he hs it - he's asking if you would just send in what you gave her . [facility] 12-21-2023 Miscellaneous Notes Quentin bloom - was in for ear infection etc last week . Now he hs it - he's asking if you would just send in what you gave her . documented in this encounter [facility] 11-15-2023 History of Present illness Narrative Images [...] day as needed, Disp: , Rfl: HYDROcodone-acetaminophen (Frohna) 5-325 MG tablet, Take 1 tablet by [...] Lou DPM documented in this encounter [facility] 11-15-2023 Instructions Arianna Lou DPM - 11/15/2023 1:00 PM EDT As noted documented in this encounter [facility] 10-23-2023 Telephone encounter Note Patient is calling for refills. He is asking for 90 day supply [facility] to [facility] 10-23-2023 Miscellaneous Notes Patient is calling for refills. He is asking for [facility] day [facility] documented in this encounter [facility] 10-11-2023 History of Present illness Narrative Images from the original note were not included. Zaina Winters is a 73 y.o. male presents with chief complaint of Establish Care HPI: Patient fell and hit his face 8 months ago and banged his teeth. 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 07/18/2022 New onset a-fib ([facility]) Paroxysmal atrial fibrillation ([facility]) 12/17/2019 Peripheral edema 11/28/2018 Polio 07/29/2015 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 documented in this encounter [facility] 03-30-2023 Telephone encounter Note 04/05 @ 1:00 pm . [facility] 03-30-2023 Miscellaneous Notes 04/05 @ 1:00 pm . So that reference # does nothing? His eval was 2/8, and is it noted per [facility] to continue, auth is needed? Would it be ok to schedule? documented in this encounter [facility] 03-30-2023 Telephone encounter Note So that reference # does nothing? His eval was 2/8, and is it noted per [facility] to continue, auth is needed? [facility] 03-30-2023 Telephone encounter Note Would it be ok to schedule? [facility] 03-29-2023 Telephone encounter Note Pt cx PT out. [facility] 03-29-2023 Miscellaneous Notes Pt cx PT out. documented in this encounter [facility] 09-20-2021 Note [id number]#1.00[facility] 09-20-2021 Note [id number]#1.00[facility] 09-18-2021 Note Education Materials POST OPERATIVE TOTAL [...] #8 follow up in office with physician logging assistant Justo Redd as scheduled #9 [facility] [...] to the nearest hospital's emergency services department. [facility] 09-18-2021 Note [facility] Clinical Discharge Summary PERSON INFORMATION Name ZAINA WINTERS Age 70 Years 1950 Sex MALE Language South Korean PCP Tonja ERNANDEZ, Jeannine Alfonso Marital Status Med Service Observation Acct# Arrival 09/17/2021 08:03:00 Visit Reason SURGERY-RIGHT TOTAL KNEE (GABRIELA) Acuity LOS 000 26:09 Address: [address] [facility] [address] Comment: PROVIDER INFORMATION VITALS INFORMATION Vital Sign [...] range between ( 1.3 and 2.9 ) Josephine Abs#: 1.3 x103/mcL -- Normal range between ( 0.0 and 0.8 ) Auto Baso %: 0.0 % -- Normal range between ( 0.2 and 2.0 ) Auto Josephine %: 9 % -- Normal range between [...] Follow up: With: Address: When: Marina Redd [address] [place] [address], [address] [place] [address] Moku (1) 10/01/2021 11:00 AM DIAGNOSIS Acute pain of right knee Comment: PHYS DOC NOTES [facility] 03-04-2021 Note [id number]#1.[facility] 03-04-2021 Note [id number]#1.00[facility] 03-04-2021 Note [id number] [place] [address] 03-03-2021 Note Education Materials POST OPERATIVE TOTAL [...] #8 follow up in office with physician logging assistant Justo Redd as scheduled #9 [facility] [...] to the nearest hospital's emergency services department. [facility] 03-03-2021 Note [facility] Clinical Discharge Summary PERSON INFORMATION Name ZAINA WINTERS Age 70 Years 1950 Sex MALE Language South Korean PCP Tonja ERNANDEZ, Jeannine Alfonso Marital Status Med Service Observation Acct# Arrival 03/02/2021 05:52:00 Visit Reason SURGERY - LEFT TOTAL KNEE POSSIBLE STEMS AND AUGS - NEX GEN TIBIA Acuity LOS 000 26:57 Address: [address] [place] [id number] Comment: PROVIDER INFORMATION VITALS INFORMATION Vital Sign [...] range between ( 1.3 and 2.9 ) Josephine Abs#: 1.9 x103/mcL -- Normal range between ( 0.0 and 0.8 ) Auto Baso %: 0.0 % -- Normal range between ( 0.2 and 2.0 ) Auto Josephine %: 10 % -- Normal range between [...] range between ( 74 and 118 ) [facility] Order 03/03/2021 4:47 [...] up: With: Address: When: Marina Redd [address] [place] [address] [address] [place], [place] [address] Business (1) 03/15/2021 10:30 AM With: Address: When: Jeannine Evangelista [address] [place] [address] Business (1) DIAGNOSIS Aftercare following left knee joint rep (more content not included)... [facility] 09-23-2020 History of Present illness Narrative Instructed on policies and procedures. documented in this encounter [employer] Phone: Evaluation note Diagnosis Persistent atrial fibrillation (HCC) Atrial fibrillation SOB (shortness of breath) Shortness of breath Essential hypertension Unspecified essential hypertension Other specified diabetes mellitus with other specified complication, unspecified whether oil heaterman insulin use (HCC) Class 2 obesity with body mass index (BMI) of 36.0 to 36.9 in adult, unspecified obesity type, unspecified whether serious comorbidity present Pain in both lower extremities documented in this encounter [employer] Phone: evaluation note* Diagnosis Left thigh pain- Primary Pain in soft tissues of limb Muscle strain of left thigh, subsequent encounter documented in this encounter [facility] HealthcareEvaluation noteNo assessment information available[facility] Work Phone: Evaluation note* Diagnosis Dermatophytosis of nail- Primary Dystrophic nail Other specified disease of nail Pain around toenail, right foot Pain around toenail, left foot [facility]* Diagnosis Acute right otitis media- [...] legs syndrome (RLS) [facility]* Diagnosis Paroxysmal atrial fibrillation (CMS/HCC) Atrial fibrillation [facility]* Diagnosis Permanent atrial fibrillation (HCC) Atrial fibrillation Chronic anticoagulation Encounter for long-term (current) use of anticoagulants Essential hypertension Unspecified essential hypertension Type 2 diabetes mellitus with diabetic nephropathy, without long-term current use of insulin (HCC) History of COVID-19 Obesity, Class III, BMI 40-49.9 (morbid obesity) Morbid obesity documented in this encounter [facility] note* Diagnosis Permanent atrial fibrillation (HCC) Atrial fibrillation Chronic anticoagulation Encounter for long-term (current) use of anticoagulants Essential hypertension Unspecified essential hypertension Type 2 diabetes mellitus with diabetic nephropathy, without long-term current use of insulin (HCC) History of COVID-19 Obesity, Class III, BMI 40-49.9 (morbid obesity) Morbid obesity documented in this encounter [facility] note* Diagnosis Acute cough- Primary documented in this encounter [facility] Healthcare[facility] note* Diagnosis Type 2 diabetes mellitus with diabetic peripheral angiopathy without gangrene ([facility]/HCC) documented in this encounter [facility]* Diagnosis Paroxysmal atrial fibrillation ([facility])- Primary Atrial fibrillation PAF (paroxysmal atrial fibrillation) ([facility]) Atrial fibrillation documented in this encounter [facility] note* Diagnosis Encounter for wellness examination- Primary Mixed hyperlipidemia ([facility]) Mixed hyperlipidemia Primary hypertension ([facility]) Unspecified essential hypertension Type 2 diabetes mellitus with other specified complication, without long-term current use of insulin ([facility]) Vitamin D deficiency 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 Gastroesophageal reflux disease without esophagitis Esophageal reflux Paroxysmal atrial fibrillation ([facility]/HCC) Atrial fibrillation OPOL (obstructive sleep apnea) Obstructive sleep apnea (adult) (pediatric) Peripheral edema Edema PVD (peripheral vascular disease) ([facility]) Unspecified peripheral vascular disease Lumbar radiculopathy Thoracic or lumbosacral neuritis or radiculitis, unspecified Restless legs syndrome Restless legs syndrome (RLS) GERD without esophagitis Esophageal reflux Type 2 diabetes mellitus with diabetic peripheral angiopathy without gangrene, without long-term current use of insulin ([facility]) Insomnia, unspecified type Morbid (severe) obesity due to excess calories ([facility]) Colon cancer screening declined Screening PSA (prostate specific antigen) Special screening for malignant neoplasm of prostate Benign prostatic hyperplasia with lower urinary tract symptoms, symptom details unspecified Body mass index (BMI) 40.0-44.9, adult (CMS/HCC) documented in this encounter [facility] HealthcareEvaluation note* Diagnosis AF (paroxysmal atrial fibrillation) (HCC) Atrial fibrillation documented in this encounter [facility]* Diagnosis Primary hypertension (CMS/HCC) Unspecified essential hypertension documented in this encounter [facility] HealthcareReason for visit Narrative* Consultation (Routine) - Pending Review Specialty Diagnoses / Procedures Referred By Jamal t Referred To Contact Physical Therapy Diagnoses Left thigh pain Muscle strain of left thigh, subsequent encounter Procedures NE OFFICE/OUTPATIENT NEW HIGH MDM 60 MINUTES Marina Redd, PA [address] [facility] [address] [place] [address] Yuliya Romero, PT [address] [facility] [address] [place] [address] Referral ID Status Reason Start Date Expiration Date Visits Requested Visits Authorized [id number] Pending Review Consult and Treat 03/23/2023 03/09/2024 1 1 [facility] Healthcare Summary Purpose Family History No [...] Advance Directives No May 04, 024 4:36pm Date Activated Date Inactivated Comments 02/12/2020 7:58 AM 02/12/2020 11:52 AM Reason for Referral Status Reason Specialty Diagnoses / Procedures Referred By Contact Referred To Contact Closed Cardiology / Echocardiography Diagnoses Persistent atrial fibrillation (HCC) Essential hypertension SOB (shortness of breath) Fluid retention Other specified diabetes mellitus with other specified complication, unspecified whether halfway insulin use (HCC) Class 2 obesity with body mass index (BMI) of 36.0 to 36.9 in adult, unspecified obesity type, unspecified whether serious comorbidity present Procedures ECHO Complete 2D W Doppler W Color Ej Foster MD [address] [place] [address] [place] [address] [facility] [address] [place] [address] [place] [address] Status Reason Specialty Diagnoses / Procedures Referre d By Contact Referred To Contact Closed Radiology Diagnoses Pain in both lower extremities PVD (peripheral vascular disease) (HCC) Procedures VL LOWER EXTREMITY ARTERIAL SEGMENTAL PRESSURES W PPG Ej Foster MD [address] [place] [address] [place] [address] Status Reason Specialty Diagnoses / Procedures Referre d By Contact Referred To Contact Closed Cardiology Diagnoses Persistent atrial fibrillation (HCC) SOB (shortness of breath) Essential hypertension Other specified diabetes mellitus with other specified complication, unspecified whether oil heaterman insulin use (HCC) Class 2 obesity with body mass index (BMI) of 36.0 to 36.9 in adult, unspecified obesity type, unspecified whether serious comorbidity present Pain in both lower extremities Procedures Echo 2D w doppler w color complete Ej Foster MD [address] [place] [address] [place] [address] Specialty Diagnoses / Procedures Referred By Contac t Referred To Contact Diagnoses Permanent atrial fibrillation (HCC) Chronic anticoagulation Essential hypertension Type 2 diabetes mellitus with diabetic nephropathy, without long-term current use of insulin (HCC) History of COVID-19 Obesity, Class III, BMI 40-49.9 (morbid obesity) Procedures Echo (TTE) complete (PRN contrast/bubble/strain/3D) NE ECHO TTHRC R-T 2D W/WOM-MODE COMPL SPEC&COLR D NE TTE W OR WO FOL WCON,Shalini Sullivan PA-C [address] [place] [id number] Referral ID Status Reason Start Date Expiration Date V isits Requested Visits Authorized [id number] Not Required - RTA 02/05/2024 02/04/2025 1 1 Specialty Diagnoses / Procedures Referred By Contac t Referred To Contact Diagnoses Permanent atrial fibrillation (HCC) Chronic anticoagulation Essential hypertension Type 2 diabetes mellitus with diabetic nephropathy, without long-term current use of insulin (HCC) History of COVID-19 Obesity, Class III, BMI 40-49.9 (morbid obesity) Procedures Extended cardiac holter monitor (3 days-14 day) NE EXTERNAL ECG REC>48HR<7D REVIEW & INTERPRETATION NE EXTERNAL ECG REC>48HR<7D RECORDING NE EXTERNAL ECG REC>7D<15D RECORDING NE EXTERNAL ECG REC>7D<15D REVIEW & INTERPRETATION Shalini Morrow PA-C [address] [place] [address] Referral ID Status Reason Start Date Expiration Date V isits Requested Visits Authorized [id number] Not Required - RTA 02/05/2024 02/04/2025 1 1 Specialty Diagnoses / Procedures Referred By Contac t Referred To Contact Cardiology Diagnoses PAF (paroxysmal atrial fibrillation) ([facility]) Procedures Cardioversion external HC CARDIOVERSION Ej Foster MD [address] [place] [address] [place] [address] Referral ID Status Reason Start Date Expiration Date V isits Requested Visits Authorized [id number] Not Required - RTA 02/22/2024 02/21/2025 1 1 Specialty Diagnoses / Procedures Referred By Contac t Referred To Contact Cardiology Diagnoses AF (paroxysmal atrial fibrillation) ([facility]) Procedures Extended cardiac holter monitor (3 days-14 day) NE EXTERNAL ECG REC>48HR<7D REVIEW & INTERPRETATION NE EXTERNAL ECG REC>48HR<7D RECORDING NE EXTERNAL ECG REC>7D<15D RECORDING NE EXTERNAL ECG REC>7D<15D REVIEW & INTERPRETATION Ej Foster MD [address] [place] [address] [place] [address] Referral ID Status Reason Start Date Expiration Date Visits Re quested Visits Authorized [id number] Closed 02/26/2024 02/25/2025 1 1 History of Present Illness * Nini Todd - 01/22/2020 11:30 AM EST Explained policies and procedures of an echocardiogram/Doppler study. documented in this encounter* Arianna Allen RN - 02/12/2020 9:42 AM EST Enamel Finisher reviewed discharge instructions with patient and spouse. Both verbalized understanding. Denies questions. Copy of discharge instructions given to patient. documented in this encounter Assessments Diagnosis Persistent atrial fibrillation (HCC) Atrial fibrillation Essential hypertension Unspecified essential hypertension SOB (shortness of breath) Shortness of breath Fluid retention Other fluid overload Other specified diabetes mellitus with other specified complication, unspecified whether oil heaterman insulin use (HCC) Class 2 obesity with body mass index (BMI) of 36.0 to 36.9 in adult, unspecified obesity type, unspecified whether serious comorbidity present Diagnosis Persistent atrial fibrillation (HCC) Atrial fibrillation Essential hypertension Unspecified essential hypertension SOB (shortness of breath) Shortness of breath Fluid retention Other fluid overload Other specified diabetes mellitus with other specified complication, unspecified whether oil heaterman insulin use (HCC) Class 2 obesity with [...] mellitus with other specified complication, unspecified whether halfway insulin use (HCC) Class 2 obesity with [...] doctor prescribes. Do not take any vitamins, nsba-quf-sqsahuj medicines, or herbal products without talking to [...] or uneven pulse. After calling 911, the glycerin operator may tell you to chew 1 [...] Where can you learn more? Go to [email or web address] and sign in to your [employer] account. Enter A617 in the Search Health Information box to learn more about Electrical Cardioversion: What to Expect at Home. If you do not have an account, please click on the Sign Up Now link. [phone] [employer]. Care instructions adapted under license by [employer]. This care instruction is for use with your licensed healthcare professional. If you have questions about amedical condition or this instruction, always ask your healthcare professional. [employer] disclaims any warranty or liability for your use of this information. Content Version: [id number]; Current as of: April 04, 2014 documented [...] and content) DATE CREATED AUTHOR 12/21/2019 [facility] DATE CREATED AUTHOR AUTHOR'S ORGANIZ ATION 06/12/2021 [facility] dical Specialist DATE CREATED AUTHOR AUTHOR'S ORGANIZ ATION 10/25/2021 [facility] DATE CREATED AUTHOR AUTHOR'S ORGANIZ ATION 05/27/2023 [facility] DATE CREATED AUTHOR AUTHOR'S ORGANIZ ATION 07/02/2023 [facility] DATE CREATED AUTHOR AUTHOR'S ORGANIZ ATION 02/26/2024 [facility] dical Specialists EPIC DATE CREATED AUTHOR AUTHOR'S ORGANIZ ATION 02/28/2024 [facility] DATE CREATED AUTHOR AUTHOR'S ORGANIZ ATION 04/06/2024 [facility] Reason for Visit (unrecogniz ed section and content) Status Reason Specialty Diagnoses / Procedures Referred By Contact Referred To Contact Closed Cardiology / Echocardiography Diagnoses Persistent atrial fibrillation (HCC) Essential hypertension SOB (shortness of breath) Fluid retention Other specified diabetes mellitus with other specified complication, unspecified whether halfway insulin use ([facility]) Class 2 obesity with body mass index (BMI) of 36.0 to 36.9 in adult, unspecified obesity type, unspecified whether serious comorbidity present Procedures ECHO Complete 2D W Doppler W Color Ej Foster MD [address] [place] [address] [place] [address] [facility] Echo [address] [place] [address] Status Reason Specialty Diagnoses / Procedures Referre d By Contact Referred To Contact Closed Radiology Diagnoses Pain in both lower extremities PVD (peripheral vascular disease) (HCC) Procedures VL LOWER EXTREMITY ARTERIAL SEGMENTAL PRESSURES W PPG Ej Foster MD [address] [place] [address] [place] [address] Status Reason Specialty Diagnoses / Procedures Re ferred By Contact Referred To Contact Authorized Cardiology Diagnoses Essential hypertension Persistent atrial fibrillation (HCC) SOB (shortness of breath) Other specified diabetes mellitus with other specified complication, unspecified whether halfway insulin use (HCC) COVID-19 Procedures Referral to Cardiac Cath NE CARDIOVERSION ELECTIVE ARRHYTHMIA EXTERNAL Ej Foster MD [address] [place] [address] [place] [address] [place] [address] Status Reason Specialty Diagnoses / Procedures Referre d By Contact Referred To Contact Closed Cardiology Diagnoses Persistent atrial fibrillation (HCC) SOB (shortness of breath) Essential hypertension Other specified diabetes mellitus with other specified complication, unspecified whether halfway insulin use (HCC) Class 2 obesity with body mass index (BMI) of 36.0 to 36.9 in adult, unspecified obesity type, unspecified whether serious comorbidity present Pain in both lower extremities Procedures Echo 2D w doppler w color complete Ej Foster MD [address] [place] [address] [place] [address] Reason Onset Date Comments re: PT today [...] be covered. He gave a reference # [id number]. Reason Comments Toenail Care PCP: Kenia Mace 10/11/23, A1C: 6.2, BS: 107 Reason Comments Cough Reason Comments Establish Care Reason Comments Med Refill Specialty Diagnoses / Procedures Referred By Jamal t Referred To Contact Diagnoses Permanent atrial fibrillation (HCC) Chronic anticoagulation Essential hypertension Type 2 diabetes mellitus with diabetic nephropathy, without long-term current use of insulin (HCC) History of COVID-19 Obesity, Class III, BMI 40-49.9 (morbid obesity) Procedures Echo (TTE) complete (PRN contrast/bubble/strain/3D) NE ECHO TTHRC R-T 2D W/WOM-MODE COMPL SPEC&COLR D NE TTE W OR WO FOL WCON,DOPPLER Shalini Morrow PA-C [address] [place] [phone] Referral ID Status Reason Start Date Expiration Date V isits Requested Visits Authorized [id number] Not Required - RTA 02/05/2024 02/04/2025 1 1 Specialty Diagnoses / Procedures Referred By Contac t Referred To Contact Diagnoses Permanent atrial fibrillation (HCC) Chronic anticoagulation Essential hypertension Type 2 diabetes mellitus with diabetic nephropathy, without long-term current use of insulin (HCC) History of COVID-19 Obesity, Class III, BMI 40-49.9 (morbid obesity) Procedures Extended cardiac holter monitor (3 days-14 day) NE EXTERNAL ECG REC>48HR<7D REVIEW & INTERPRETATION NE EXTERNAL ECG REC>48HR<7D RECORDING NE EXTERNAL ECG REC>7D<15D RECORDING NE EXTERNAL ECG REC>7D<15D REVIEW & INTERPRETATION Shalini Morrow PA-C [address] [place] [id number] Referral ID Status Reason Start Date Expiration Date V isits Requested Visits Authorized [id number] Not Required - RTA 02/05/2024 02/04/2025 1 1 Specialty Diagnoses / Procedures Referred By Contac t Referred To Contact Cardiology Diagnoses PAF (paroxysmal atrial fibrillation) (HCC) Procedures Cardioversion external HC CARDIOVERSION Ej Foster MD [address] [place] [phone] Referral ID Status Reason Start Date Expiration Date V isits Requested Visits Authorized [id number] Not Required - RTA 02/22/2024 02/21/2025 1 1 Reason Comments Medicare [place] Wellness [place] [facility] Specialty Diagnoses / Procedures Referred By Contac t Referred To Contact Cardiology Diagnoses AF (paroxysmal atrial fibrillation) (HCC) Procedures Extended cardiac holter monitor (3 days-14 day) NE EXTERNAL ECG REC>48HR<7D REVIEW & INTERPRETATION NE EXTERNAL ECG REC>48HR<7D RECORDING NE EXTERNAL ECG REC>7D<15D RECORDING NE EXTERNAL ECG REC>7D<15D REVIEW & INTERPRETATION Ej Foster MD [address] [place] [address] [place] [address] Referral ID Status Reason Start Date Expiration Date Visits Re quested Visits Authorized [id number] Closed 02/26/2024 02/25/2025 1 1 Care Teams (unrecognized sec tion and content) Senior Research Executive Relationship Specialty Start Date End Date Bernie Adam MD [address] [place] [address] PCP - ACO Reach 07/07/22 Bernie Adam MD [address] [facility] [place] [address] PCP - General Family Medicine 08/01/22 Senior Research Executive Relationship Specialty Start Date End Date Bernie Adam MD [address] [facility] [place] [address] PCP - ACO Reach 07/07/22 Bernie Adam MD [address] [facility] [place] [address] PCP - General Family Medicine 08/01/22 Senior Research Executive Relationship Specialty Start Date End Date Bernie Adam MD [address] [facility] [place] [address] PCP - ACO Reach 07/07/22 Bernie Adam MD [address] [facility] [place] [address] PCP - General Family Medicine 08/01/22 Senior Research Executive Relationship Specialty Start Date End Date Bernie Adam MD [address] [place] [address] PCP - ACO Reach 07/07/22 Bernie Adam MD [address] [place] [address] PCP - General Family Medicine 08/01/22 Senior Research Executive Relationship Specialty Start Date End Date Bernie Adam MD [address] [place] [address] PCP - ACO Reach 07/07/22 Bernie Adam MD [address] [place] [address] PCP - General Family Medicine 08/01/22 Team [...] May 23, 2023 End: May 23, 2023 Senior Research Executive Relationship Specialty Start Date End Date Bernie Adam MD [address] [place] [address] PCP - General Family Medicine 08/01/22 Bernie Adam MD [address] [place] [address] PCP - ACO Reach 06/14/23 Senior Research Executive Relationship Specialty Start Date End Date Bernie Adam MD [address] [place] [address] PCP - General Family Medicine 08/01/22 Bernie Adam MD [address] [place] [address] PCP - ACO Reach 06/14/23 Senior Research Executive Relationship Specialty Start Date End Date Bernie Adam MD [address] [place] [address] PCP - General Family Medicine 08/01/22 Bernie Adam MD [address] [place] [address] PCP - ACO Reach 06/14/23 Senior Research Executive Relationship Specialty Start Date End Date Bernie Adam MD [address] [place] [address] PCP - General Family Medicine 08/01/22 Bernie Adam MD [address] [place] [address] PCP - ACO Reach 06/14/23 Senior Research Executive Relationship Specialty Start Date End Date Bernie Adam MD [address] [place] [address] PCP - General Family Medicine 08/01/22 Bernie Adam MD [address] [place] [address] PCP - ACO Reach 06/14/23 Senior Research Executive Relationship Specialty Start Date End Date Bernie Adam MD [address] [place] [address] PCP - General Family Medicine 08/01/22 Bernie Adam MD [address] [place] [address] PCP - ACO Reach 06/14/23 Senior Research Executive Relationship Specialty Start Date End Date Bernie Adam MD [address] [place] [address] PCP - General Family Medicine 08/01/22 Bernie Adam MD [address] [place] [address] PCP - ACO Reach 06/14/23 Senior Research Executive Relationship Specialty Start Date End Date Bernie Adam MD [address] [place] [address] PCP - General Family Medicine 08/01/22 Bernie Adam MD [address] [place] [address] PCP - ACO Reach 06/14/23 Senior Research Executive Relationship Specialty Start Date End Date Bernie Adam MD [address] [place] [address] PCP - General Family Medicine 08/01/22 Bernie Adam MD [address] [place] [address] PCP - ACO Reach 06/14/23 Senior Research Executive Relationship Specialty Start Date End Date Bernie Adam MD [address] [place] [address] PCP - General Family Medicine 08/01/22 Bernie Adam MD [address] [place] [address] PCP - ACO Reach 06/14/23 Senior Research Executive Relationship Specialty Start Date End Date Jeannine Evangelista APRN - ASSEMBLY LEADER [address] [place] [address] PCP - General Nurse Practitioner Family 01/30/20 Senior Research Executive Relationship Specialty Start Date End Date Jeannine Evangelista MANAGER STYLIST - ASSEMBLY LEADER [address] [facility] [place] [address] PCP - General Nurse Practitioner Family 01/30/20 Senior Research Executive Relationship Specialty Start Date End Date Bernie Adam MD [address] [facility] [place] [address] PCP - General Family Medicine 08/01/22 Bernie Adam MD [address] [place] [address] PCP - ACO Reach 06/14/23 Senior Research Executive Relationship Specialty Start Date End Date Jeannine Evangelista MANAGER STYLIST - ASSEMBLY LEADER [address] [place] [address] PCP - General Nurse Practitioner Family 01/30/20 Senior Research Executive Relationship Specialty Start Date End Date Bernie Adam MD [address] [facility] [place] [address] PCP - General Family Medicine 08/01/22 Bernie Adam MD [address] [facility] [place] [address] PCP - ACO Reach 06/14/23 Senior Research Executive Relationship Specialty Start Date End Date Jeannine Evangelista APRN - ASSEMBLY LEADER [address] [facility] [place] [address] PCP - General Nurse Practitioner [facility] 01/30/20 Senior Research Executive Relationship Specialty Start Date End Date Bernie Adam MD [address] [facility] [place] [address] PCP - General Family Medicine 08/01/22 Bernie Adam MD [address] [facility] [place] [address] PCP - ACO Reach 06/14/23 Goals (unrecognized [...] BE BASED ON THE PRIMARY CLINICAL RECORDS. [facility]. provides no warranty or guarantee of the accuracy or completeness of information in this document.
--- NOTE | 2024-04-17 10:47 | PM.CN ---
Consult Note: HPI Data of Consult Patient: known to practice within the last 3 years Requesting Physician: Kelley Richard NP Primary Care Provider: Non-Staff Physician, MD Consult Narrative Reason for consult: left hip pain Narrative: 72yom who presents for assessment. continues to have moderate to severe left hip and left leg pain. imaging reviewed, which is significant for left-sided foraminal stenosis at l4-5, l5-s1. continues in a series of provider directed home exercises >6 weeks, without lasting relief. uses tylenol primarily. cannot take nsaids due to blood thinner. denies adverse med side effects. recently underwent left L4-5 L5-S1 TFESI with >50% improvement and left SIJ injection with >50% improvement ongoing. cc:: CC: Kelley Richard NP Review of Systems ROS Status of ROS 10 or more systems reviewed and unremarkable except as noted in history and below Musculoskeletal Reports: back pain and joint pain; Denies: extremity pain PFSH PFSH Medical History (Updated 03/14/24 @ 13:57 by Kelley Richard NP) Diabetes ?E11.9 - Type 2 diabetes mellitus without complications (ICD-10) High cholesterol ?E78.00 - Pure hypercholesterolemia, unspecified (ICD-10) Atrial fibrillation, chronic ?I48.20 - Chronic atrial fibrillation, unspecified (ICD-10) HTN (hypertension) ?I10 - Essential (primary) hypertension (ICD-10) Surgical History History of knee surgery ?Z98.890 - Other specified postprocedural states (ICD-10) History of back surgery ?Z98.890 - Other specified postprocedural states (ICD-10) Meds Home Medications and Allergies Home Medications ?Medication ?Instructions ?Recorded ?Confirmed ?Type allopurinol 100 mg tablet 100 mg PO DAILY 06/22/23 04/01/24 History apixaban 5 mg tablet (Eliquis) 5 mg PO BID 06/22/23 04/01/24 History ascorbic acid (vitamin C) 500 mg 500 mg PO DAILY 06/22/23 04/01/24 History chewable tablet atorvastatin 10 mg tablet 10 mg PO DAILY 06/22/23 04/01/24 History cholecalciferol (vitamin D3) 25 1,000 unit PO DAILY 06/22/23 04/01/24 History mcg (1,000 unit) tablet (Vitamin D3) losartan 50 mg-hydrochlorothiazide 1 tab PO DAILY 06/22/23 04/01/24 History 12.5 mg tablet metformin 500 mg tablet 500 mg PO BID 06/22/23 04/01/24 History metoprolol tartrate 25 mg tablet 12.5 mg PO BID 06/22/23 04/01/24 History omeprazole 20 mg capsule,delayed 20 mg PO DAILY 06/22/23 04/01/24 History release ropinirole 1 mg tablet 1.5 mg PO DAILY 06/22/23 04/01/24 History tamsulosin 0.4 mg capsule 0.4 mg PO DAILY 06/22/23 04/01/24 History baclofen 10 mg tablet 10 mg PO TID #90 tabs 10/04/23 04/01/24 Rx gabapentin 300 mg capsule 300 mg PO Q12H 02/27/24 04/01/24 History gabapentin 600 mg tablet 600 mg PO BID #60 tabs 04/08/24 Rx Allergies Allergy/AdvReac Type Severity Reaction Status Date / Time No Known Drug Allergies Allergy Verified 04/01/24 08:43 Exam Constitutional Documenting provider has reviewed patient's vital signs: yes Common normals: no apparent distress, oriented x3, healthy appearing, alert and well nourished General appearance: cooperative HENMT Common normals: normocephalic, hearing grossly normal bilaterally and moist oral mucous membranes Head and scalp: normocephalic Eye Common normals: PERRL Pupil: PERRL Neck & C-Spine Common normals: full ROM General: normal visual inspection Chest Common normals: inspection of chest normal Respiratory Common normals: normal respiratory effort, no retractions and no use of accessory muscles Back & Pelvis Lumbar spine/lower back: ROM limited; no pain with ROM, no lumbar spinal tenderness, straight leg raise negative right and straight leg raise negative left Sacroiliac joints: SI joint(s) abnormal Other: mildly positive left alise(patricks), gaenslens, thigh thrust, compression test Neuro Common normals: oriented x3, CN's II-XII intact bilaterally, moves all extremities, no focal motor deficits, no sensory deficits noted and deep tendon reflexes 2+ bilaterally Sensorium/orientation: alert Motor exam: strength 5/5 throughout and no movement abnormalities noted Psych Common normals: mental status grossly normal, thought process normal, cooperative, affect normal, speech normal and activity/motor behavior normal Speech: normal speech Thought process: normal thought process Results Additional Findings Additional findings: If on a controlled substance or opioids, I have checked an [place] report on this patient and there are no aberrancies noted in the prescribing history.??If on a controlled substance or opioid a drug screen was completed and reviewed within the last year, and if there has not been a drug screen completed we ordered one today to monitor higher risk, state monitored pain medication use. As part of providing excellent, safe, comprehensive care, the following was completed at our patient's visit: 1. A medication reconciliation and review to ensure accurate knowledge of current/active medications, including asking our patients to inform us about any [id number] medications or herbal remedies/nutritional supplements/alternative remedies. 2. A review to specifically ensure our patients have had annual screening for screening for depression, screening for tobacco use, and screening for unhealthy alcohol use. For concerning screenings had a discussion with the patient, provided patient education, and recommended follow-up with primary care provider when appropriate. If patient noted with a risk of falling, they received education on strength, gait, and balance training to prevent future risk of falling. Portions of this note may have been carried over from the previous visit and updated as appropriate. Please note this office utilizes paper charting in addition to the electronic medical record. A list of current medications, vitals, and PMH is available there as the clinical staff outside of myself do not have access to [employer] charting during the clinic day operations. As part of providing quality comprehensive care the current medications, vitals, and PMH were reviewed in the paper chart. Assessment and Plan Assessment and Plan (1) Lumbar stenosis with neurogenic claudication: (2) Sacroiliitis: Plan continue gabapentin 600mg BID continue HEP as tolerated f/u 3 months, sooner if needed
== END 2024-04-17 09:51 | disposition home or self-care (01) ==
LOC: PM 09:50
PROVIDERS: Visit Provider Nurse Practitioner
DX: M48.062 Spinal stenosis, lumbar region with neurogenic claudication (principal); M46.1 Sacroiliitis, not elsewhere classified
CPT/HCPCS: G0463

== ENCOUNTER 2024-07-17 12:39 | Outpatient (OUT) | payer OTHER, SELFPAY ==
--- OUTSIDE RECORDS SUMMARY | 2024-06-20 09:30 | XMS_ITS ---
Author Organization [facility] vices Address [address] [place], [place] [address], [place] [id number] Care Team Providers Care It Communications Manager Name Role Phone Soo Moreira [phone] REASON FOR VISIT Denture Adjustment Social History Sex Assigned At : Social History Observation Description Sex Assigned At Male Encounters Encounter Location Date Provider Diagnosis [facility] [address] [place], [place] [id number] 06/20/2024 Soo Moreira Plan Of Treatment No Information Progress Notes * Yang CARDDOB:[birth year] (73 yo M)Acc No.[id number]:06/20/2024 Patient: Yang CISNEROS Provider: Elysia Moreira DMD :1950 A ge:73 Y S ex:Male Date:06/20/2024 Address[facility] Subjective: * Chief Complaints: * 1 . Denture Adjustment. * Medical History: Objective: * Vitals: Assessment: Plan: * Treatment: * Billing Information: * Visit Code: * Procedure Codes: * Electronic signature of Sanjuanita Moreira DMD on 07/17/2024 at 12:44 PM EDT Sign off status: Pending * Provider: Elysia Moreira DMD Date: 06/20/2024 Generated for Nina borrero/[place]/eTransmitting on: 07/17/2024 12:44 PM EDT
--- OUTSIDE RECORDS SUMMARY | 2024-07-09 13:00 | XMS_ITS | Encounter Summary ---
Author Organization [facility] Address [address] [place] [address] Care Team Providers Care Credit Control Clerk Name Role Phone Bernie Adam MD Primary Care Provider [phone] Encounter Details Date Type Department Care Team (Latest Contact Info) Description 07/09/2024 1:00 PM EDT Ancillary Procedure [facility] [address] [place] [address] Localized edema Social History Tobacco Use Types Packs/Day Years Used Date Smoking Tobacco: Never Smokeless Tobacco: Never Alcohol Use Standard Drinks/Week Comments Yes 3 (1 standard drink = 0.6 oz pur e alcohol) caffeine intake: 12 oz daily AUDIT-C Answer Date Recorded Q1: How often do you have a drink containing alc ohol? 2-4 times a month 09/19/2023 Q2: How many drinks containi ng alcohol do you have on a typical day when you are drinking? 3 or 4 09/19/2023 Q3: How often do you have si x or more drinks on one occasion? Never 09/19/2023 PHQ-2 Answer Date Recorded Patient Health Questionnaire-2 Score 0 12/02/2022 Sex and Gender Information Value Date Recorded Sex Assigned at Not on file Legal Sex Male 7:26 PM EDT Gender Identity Not on file Sexual Orientation Not on file documented as of this encounter Plan of Treatment Upcoming Encounters Date Type Department Care Team (Late st Contact Info) Description 09/03/2024 1:00 PM EDT Procedure Visit [facility] [address] [place] [address] Sher Lou, DPM [address] [place] [address] 09/03/2024 2:00 PM EDT Office Visit [facility] [address] [facility] [place] [phone] Kenia Castillo NP [address] [facility] [place] [address] documented as of this encounter Procedures Procedure Name Priority Date/Time Associated Diagnosis Comments XR CHEST 2 VIEWS STAT 07/09/2024 3:27 PM EDT Localized edema documented in this encounter Results * XR chest 2 views (07/09/2024 3:27 PM EDT) Anatomical Region Laterality Modality Chest Radiographic Sharron ging 07/09/2024 4:13 PM EDT Narrative 07/09/2024 4:13 PM EDT Exam: XR CHEST 2 VIEWS Reason for exam: Bilateral leg swelling, no chest complaints Prior comparative studies: None Findings: No consolidation or effusion is apparent. Pleural space is clear. Heart and mediastinum are unremarkable. IMPRESSION: 1. No acute abnormality identified. Dictated on: 07/09/2024 2:02 PM This report has been electronically signed and approved by the interpreting radiologist. Procedure Note Camacho Meneses MD - 07/09/2024 Exam: XR CHEST 2 VIEWS Reason for exam: Bilateral leg swelling, no chest complaints Prior comparative studies: None Findings: No consolidation or effusion is apparent. Pleural space isclear. Heart and mediastinum are unremarkable. IMPRESSION: 1. No acute abnormality identified. Dictated on: 07/09/2024 2:02 PM This report has been electronically signed and approved by theinterpreting radiologist. Kenia Castillo NP IMG XR PROCEDURES Final Result documented in this encounter Visit Diagnoses Diagnosis Localized edema Edema documented in this encounter Care Teams Credit Control Clerk Relationship Specialty Start Date End Date Bernie Adam MD [address] [place] [address] PCP - General Family Medicine 08/01/22 documented as of this encounter
--- OUTSIDE RECORDS SUMMARY | 2024-07-09 14:00 | XMS_ITS | Encounter Summary ---
Author Organization [facility] Address [address] [place] [address] Care Team Providers Care Seed Corn Production Manager Name Role Phone Bernie Adam MD Primary Care Provider [phone] Reason for Referral * Imaging (Stat) - Closed Specialty Diagnoses / Procedures Referred By Contac t Referred To Contact Radiology Diagnoses Localized edema Procedures Vascular US lower extremity venous duplex bilateral Kenia Castillo NP [address] [place] [address] Phone: tel: fax: Referral ID Status Reason Start Date Expiration Date Visits Re quested Visits Authorized [id number] Closed 07/09/2024 01/05/2025 1 1 Reason for Visit * Reason Comments Foot Swelling Encounter Details Date Type Department Care Team (Late st Contact Info) Description 07/09/2024 2:00 PM EDT Office Visit [facility] [address] [place] [phone] Kenia Castillo NP [address] [place], [place] [phone] Localized edema (Primary Dx); Restless legs syndrome; POOL (obstructive sleep apnea); Polio; Primary hypertension (CMS/HCC); Benign prostatic hyperplasia with nocturia; Gastroesophageal reflux disease without esophagitis; Type 2 diabetes mellitus with diabetic peripheral angiopathy without gangrene (CMS/HCC); Other hyperlipidemia; Paroxysmal atrial fibrillation (CMS/HCC); Insomnia, unspecified type; Lumbar radiculopathy; 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 Social History Tobacco Use Types Packs/Day Years [...] on file documented as of this encounter Last Filed Vital Signs Vital Sign Reading Time Taken Comments Blood Pressure 124/72 07/09/2024 1:53 PM EDT Pulse 61 07/09/2024 1:53 PM EDT Temperature - - Respiratory Rate - - Oxygen Saturation 96% 07/09/2024 1:53 PM EDT Inhaled Oxygen Concentration - - Weight 144 kg (316 lb 6.4 oz) 07/09/2024 1:53 PM EDT Height 181.6 cm (5' 11.5 ) 07/09/2024 1:53 PM ED T Body Mass Index 43.51 07/09/2024 1:53 PM EDT documented in this encounter Progress Notes * Kenia Castillo NP - 07/09/2024 2:00 PM EDT Images from the original note were not included. Yang Card is a 73 y.o. male presents with chief complaint of Foot Swelling HPI: HPI History of Present Illness The patient presents for evaluation of bilateral lower extremity edema. He reports experiencing bilateral lower extremity edema, which he describes as his feet being swollen. This condition began approximately one week ago. He does not experience any associated pain. He has not used compression stockings but has utilized an Radhames wrap for his restless legs syndrome. He has not undergone any recent surgeries, long trips, or flights. He has a history of frequent falls, with approximately 10 to 12 incidents occurring within the past 1.5 years, often due to tripping overhis right foot. He reports no history of heart failure or irregular heartbeats. He has been managing his restless legs syndrome with utez-san-imrirjz medication, taking up to ninetablets at a time, but questions their efficacy. He has not scheduled an appointment with sleep medicine. He attempted to use a mask for his sleep apnea but found it difficult due to his inability toremain still because of his restless legs syndrome. He has noticed a weight gain of six pounds over the past four weeks. SUBJECTIVE: MEDICATIONS: Current Outpatient Medications Medication Instructions allopurinol (ZYLOPRIM) 100 mg, Oral, Every morning amiodarone (Pacerone) 200 MG tablet Oral for 30 Days amitriptyline (ELAVIL) 10 mg, Oral, Nightly apixaban (Eliquis) 5 MG tablet TAKE 1 TABLET IN THE MORNING AND 1 TABLET BEFORE BEDTIME atorvastatin (LIPITOR) 10 mg, Oral, Every morning Bioflavonoid Products (VITAMIN C PLUS PO) Take by mouth gabapentin (NEURONTIN) 300 mg, 2 times daily losartan-hydroCHLOROthiazide (Hyzaar) 50-12.5 MG tablet 1 tablet, Oral, Every morning metFORMIN (Glucophage) 500 MG tablet TAKE 1 TABLET IN THE MORNING AND 1 TABLET IN THE EVENING WITH MEALS metoprolol tartrate (LOPRESSOR) 50 mg, 2 times daily omeprazole (PriLOSEC) [address] capsule TAKE 1 CAPSULE EVERY MORNING BEFORE A MEAL rOPINIRole (REQUIP) 1 mg, Oral, Nightly tamsulosin (Flomax) 0.4 MG 24 hr capsule TAKE 1 CAPSULE IN THE MORNING VITAMIN D, CHOLECALCIFEROL, PO Vitamin D I have reviewed and reconciled the history and medication list with the patient today. REVIEW OF SYMPTOMS: Review of Systems OBJECTIVE: Visit Vitals BP 124/72 Pulse 61 Ht 5' 11.5 Wt 316 lb 6.4 oz SpO2 96% BMI 43.51 kg/m?? Smoking Status Never BSA 2.7 m?? Physical Exam Vitals reviewed. Constitutional: Appearance: He is obese. HENT: Head: Normocephalic and atraumatic. Nose: Nose normal. Mouth/Throat: Mouth: Mucous membranes are moist. Eyes: Pupils: Pupils are equal, round, and reactive to light. Cardiovascular: Rate and Rhythm: Normal rate and regular rhythm. Pulses: Normal pulses. Heart sounds: Normal heart sounds. Pulmonary: Effort: Pulmonary effort is normal. Breath sounds: Normal breath sounds. Musculoskeletal: Cervical back: Normal range of motion and neck supple. Right lower leg: Edema present. Left lower leg: Edema present. Skin: General: Skin is warm and dry. Capillary Refill: Capillary refill takes less than 2 seconds. Findings: No rash. Neurological: General: No focal deficit present. Mental Status: He is alert and oriented to person, place, and time. ASSESSMENT AND PLAN: Assessment/Plan Diagnoses and all orders for this visit: Localized edema - XR chest 2 views; Future - Vascular US lower extremity venous duplex bilateral; Future - B-type natriuretic peptide; Future - CBC and differential; Future - Comprehensive metabolic panel; Future - TSH W/REFLEX TO FT4; Future -Check labs. Venous US to r/o DVT's, chest Xray to r/o fluid overload. Encouraged to wear compression stockings to BLE, elevate intermittently, can use radhames wraps if he doesn't have compression stockings at home. Consider EKG if labs and imaging negative. Restless legs syndrome - rOPINIRole (Requip) 1 MG tablet; Take 1.5 tablets (1.5 mg) by mouth at bedtime -continue requip. Discussed correlation of RLS with untreated sleep apnea. POOL (obstructive sleep apnea) - Tirzepatide-Weight Management (Zepbound) 2.5 MG/0.5ML solution auto-injector; Inject 2.5 mg underthe skin 1 (one) time per week -could not tolerate cpap, will see if we can get zepbouond approved for him as it was recently approved by the FDA for the treatment of sleep apnea. Side effects discussed, he verbalizes understanding and willingness to trial medication, script sent to pharmacy. I do recommend he follow up with sleep medicine as previously referred. Primary hypertension (CMS/HCC) - metoprolol tartrate (Lopressor) 50 MG tablet; Take 1 tablet (50 mg) by mouth in the morning and 1tablet (50 mg) before bedtime. - losartan-hydroCHLOROthiazide (Hyzaar) 50-12.5 MG tablet; Take 1 tablet by mouth in the morning. -Discussed current management plan. Goal BP less then 130/80. Discussed heart healthy diet, increase fruits and vegetables, limit salt intake. Encouraged increase physical exercise, try to be as active as possible at least 150 mins per week. Importance of weight management with a goal BMI less then27 discussed. Discussed complications of uncontrolled blood pressure. Patient instructed to monitorBP's 1-2 times a week, keep a log, and bring to next visit. Barriers to care and medication compliance discussed. Patient voices understanding of meds. Benign prostatic hyperplasia with nocturia - tamsulosin (Flomax) 0.4 MG 24 hr capsule; Take 1 capsule (0.4 mg) by mouth at bedtime Gastroesophageal reflux disease without esophagitis - omeprazole (PriLOSEC) [address] capsule; Take 1 capsule (20 mg) by mouth in the morning. Take before meals. Do not crush or chew. Type 2 diabetes mellitus with diabetic peripheral angiopathy without gangrene (CMS/HCC) - metFORMIN (Glucophage) 500 MG tablet; Take 1 tablet (500 mg) by mouth in the morning and 1 tablet(500 mg) in the evening. Take with meals. Other hyperlipidemia - atorvastatin (Lipitor) 10 MG tablet; Take 1 tablet (10 mg) by mouth in the morning. -on a statin Paroxysmal atrial fibrillation (CMS/HCC) - metoprolol tartrate (Lopressor) 50 MG tablet; Take 1 tablet (50 mg) by mouth in the morning and 1tablet (50 mg) before bedtime. - apixaban (Eliquis) 5 MG tablet; Take 1 tablet (5 mg) by mouth in the morning and 1 tablet (5 mg) before bedtime. 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 documented in this encounter Plan of Treatment Upcoming Encounters Date Type Department Care Team (Late st Contact Info) Description 09/03/2024 1:00 PM EDT Procedure Visit [facility] [address] [place] [phone] Sher Lou DPM [address] [place] [address] 09/03/2024 2:00 PM EDT Office Visit [facility] [address] [place] [phone] Kenia Castillo NP [address] [place] [address] documented as of this encounter Procedures Procedure Name Priority Date/Time Associated Diagnosis Comments TSH W/REFLEX TO FT4 Routine 07/09/2024 2 :25 PM EDT Localized edema CBC (INCLUDES DIFF/PLT) Routine 07/09/2024 2:25 PM EDT Localized edema B-TYPE NATRIURETIC PEPTIDE Routine 07/09/2024 2:25 PM EDT Localized edema COMPREHENSIVE METABOLIC PANEL Routine 07/09/2024 2:25 PM EDT Localized edema documented in this [...] Castillo NP IMG XR PROCEDURES Final Result * Vascular US lower extremity venous duplex bilateral (07/09/2024 3:25 PM EDT) Anatomical Region Laterality Modality Lower Extremities Ultrasound 07/10/2024 9:20 AM EDT Narrative 07/10/2024 9:20 AM EDT EXAM: VAS US LOWER EXTREMITY VENOUS DUPLEX BILATERAL HISTORY: Edema x 1 week. COMPARISON: None available. TECHNIQUE: Two-dimensional grayscale, color and spectral Doppler ultrasound imaging of the bilateral lower extremities was performed. FINDINGS: The bilateral lower extremity deep venous system was interrogated from the common femoral vein through the posterior tibial veins. The visualized deep calf veins are unremarkable. There is no evidence of an intraluminal filling defect. Normal compression and augmentation are noted throughout. Soft tissues are unremarkable. IMPRESSION: 1. Negative for bilateral lower extremity DVT. Interpreted by: Electronically signed by TOMER PADGETT II, MD, PHD at 10-Jul-2024 09:19:12 AM [facility] Procedure Note Tomer Padgett MD - 07/10/2024 EXAM: VASC US LOWER EXTREMITY VENOUS DUPLEX BILATERAL HISTORY: Edema x 1 week. COMPARISON: None available. TECHNIQUE: Two-dimensional grayscale, color and spectral Dopplerultrasound imaging of the bilateral lower extremities was performed. FINDINGS: The bilateral lower extremity deep venous system was interrogated from thecommon femoral vein through the posterior tibial veins. The visualizeddeep calf veins are unremarkable. There is no evidence of an intraluminalfilling defect. Normal compression and augmentation are noted throughout. Soft tissues are unremarkable. IMPRESSION: 1. Negative for bilateral lower extremity DVT. Interpreted by: Electronically signed by TOMER PADGETT II, MD, PHD [id number] 09:19:12 AM [facility] Kenia Castillo NP IMG US PROCEDURES Final Result * TSH W/REFLEX TO FT4 (07/09/2024 2:25 PM EDT) TSH W/REFLEX TO FT4 3.37 0.40 - 4.50 mIU/L [facility] 07/09/2024 2:25 PM EDT 07/09/2024 2:25 PM EDT Narrative Resulting Agency Comment Performing Organization Information Site ID: QPT Name: [facility] Address: [address] [place] [address], [address] [place] [phone] Director: Curtis Lyons MD us Kenia Castillo NP LAB BLOOD ORDERABLES Final Resu lt [facility] * (ABNORMAL) Comprehensive metabolic panel (07/09/2024 2:25 PM EDT) Glucose 100(H) 65 - 99 mg/dL [facility] Comment: Fasting reference interval For someone without known diabetes, a glucose value between 100 and 125 mg/dL is consistent with prediabetes and should be confirmed with a follow-up test. BUN 22 7 - 25 mg/dL [facility] Creatinine 1.42(H) 0.70 - 1.28 mg/dL [facility] EGFR 52(L) > OR = 60 mL/min/1.7 3m2 [facility] BUN/CREATININE RATIO 15 6 - 22 (calc) [facility] Sodium 138 135 - 146 mmol/L [facility] Potassium, Bld 4.2 3.5 - 5.3 mmol/L [facility] Chloride 100 98 - 110 mmol/L [facility] Carbon Dioxide 27 20 - 32 mmol/L [facility] Calcium 9.1 8.6 - 10.3 mg/dL [facility] PROTEIN, TOTAL 6.4 6.1 - 8.1 g/dL [facility] ALBUMIN 4.3 3.6 - 5.1 g/dL [facility] GLOBULIN 2.1 1.9 - 3.7 g/dL (calc) [facility] ALBUMIN/GLOBULIN RATIO 2.0 1.0 - 2.5 (calc) [facility] BILIRUBIN, TOTAL 0.5 0.2 - 1.2 mg/dL [facility] ALKALINE PHOSPHATASE 72 35 - 144 U/L [facility] AST 20 10 - 35 U/L [facility] ALT 15 9 - 46 U/L [facility] Blood Venous blood specimen / Unknown 07/09/2024 2:25 PM EDT 07/09/2024 2:25 PM EDT Narrative Resulting Agency Comment Performing Organization Information Site ID: QPT Name: [facility] Address: [address] , [address] [place] [address] Director: Curtis Lyons MD Kenia Castillo NP LAB BLOOD ORDERABLES Final Resu lt [facility] * (ABNORMAL) CBC and differential (07/09/2024 2:25 PM EDT) WHITE BLOOD CELL COUNT 5.4 3.8 - 10.8 Thousand/u L [facility] RED BLOOD CELL COUNT 4.16(L) 4.20 - 5.80 Million/uL [facility] HEMOGLOBIN 12.7(L) 13.2 - 17.1 g/dL [facility] HEMATOCRIT 40.7 38.5 - 50.0 % [facility] MCV 97.8 80.0 - 100.0 fL [facility] MCH 30.5 27.0 - 33.0 pg [facility] MCHC 31.2(L) 32.0 - 36.0 g/dL [facility] Comment: For adults, a slight decrease in the calculated MCHC value (in the range of 30 to 32 g/dL) is most likely not clinically significant; however, it should be interpreted with caution in correlation with other red cell parameters and the patient's clinical condition. RDW 13.8 11.0 - 15.0 % [facility] PLATELET COUNT 196 140 - 400 Thousand/u L [facility] MPV 11.0 7.5 - 12.5 fL [facility] ABSOLUTE NEUTROPHILS 3,488 1,500 - 7,800 cells/uL [facility] ABSOLUTE LYMPHOCYTES 1,291 850 - 3,900 cells/uL [facility] ABSOLUTE MONOCYTES 475 200 - 950 cells/uL [facility] ABSOLUTE EOSINOPHILS 97 15 - 500 cells/uL [facility] ABSOLUTE BASOPHILS 49 0 - 200 cells/uL [facility] NEUTROPHILS 64.6 % [facility] LYMPHOCYTES 23.9 % [facility] MONOCYTES 8.8 % [facility] EOSINOPHILS 1.8 % [facility] BASOPHILS 0.9 % [facility] Blood Venous blood specimen / Unknown 07/09/2024 2:25 PM EDT 07/09/2024 2:25 PM EDT Narrative Resulting Agency Comment Performing Organization Information Site ID: QPT Name: [facility] Address: [address] [place] [address], [address] [place] [phone] Director: Curtis Lyons MD us Kenia Castillo NP LAB BLOOD ORDERABLES Final Resu lt Performing Organization Address [facility] de Phone Number [facility] * B-type natriuretic peptide (07/09/2024 2:25 PM EDT) B TYPE NATRIURETIC PEPTIDE (BNP) 27 <100 pg/mL [facility] Comment: BNP levels increase with age in the general population with the highest values seen in individuals greater than 75 years of age. Reference: J. Am. Cheryl. Cardiol. 2002; 40:976-982. Blood Venous blood specimen / Unknown 07/09/2024 2:25 PM EDT 07/09/2024 2:25 PM EDT Narrative Resulting Agency Comment Performing Organization Information Site ID: QPT Name: [facility] Address: [address] [place] [address], [address] [place] [phone] Director: Curtis Lyons MD Kenia Castillo NP LAB BLOOD ORDERABLES Final Resu lt Performing Organization Address [facility] de Phone Number [facility] documented in this encounter Visit Diagnoses Diagnosis Localized edema- Primary Edema Restless legs syndrome Restless legs syndrome (RLS) POOL (obstructive sleep apnea) Obstructive sleep apnea (adult) (pediatric) Polio Acute unspecified poliomyelitis, unspecified poliovirus Primary hypertension (CMS/HCC) Unspecified essential hypertension Benign prostatic hyperplasia with nocturia Gastroesophageal reflux disease without esophagitis Esophageal reflux Type 2 diabetes mellitus with diabetic peripheral angiopathy without gangrene (CMS/HCC) Other hyperlipidemia Paroxysmal atrial fibrillation (CMS/HCC) Atrial fibrillation Insomnia, unspecified type Lumbar radiculopathy Thoracic or lumbosacral neuritis or radiculitis, unspecified 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
--- OUTSIDE RECORDS SUMMARY | 2024-07-09 14:45 | XMS_ITS | Encounter Summary ---
Author Organization [facility] Address [address] [place] [address] Care Team Providers Care River Rafting Guide Name Role Phone Bernie Adam MD Primary Care Provider [phone] Reason for Visit * Imaging (Stat) - Closed Specialty Diagnoses / Procedures Referred By Contac t Referred To Contact Radiology Diagnoses Localized edema Procedures Vascular US lower extremity venous duplex bilateral Kenia Castillo NP [address] [place] [address] Phone: tel: fax: Referral ID Status Reason Start Date Expiration Date Visits Re quested Visits Authorized [id number] Closed 07/09/2024 01/05/2025 1 1 Encounter Details Date Type Department Care Team (Latest Contact Info) Description 07/09/2024 2:45 PM EDT Ancillary Procedure [facility] [address] [facility] [address] [place] [phone] Localized edema Social History Tobacco Use Types [...] EDT Procedure Visit [facility] [address] [place] [phone] Sher Lou, DPM [address] [place] [address] 09/03/2024 2:00 PM EDT Office Visit [facility] [address] [place] [phone] Kenia Castillo NP [address] [place] [address] documented as of this encounter Procedures Procedure Name Priority Date/Time Associated Diagnosis Comments [facility] US LOWER EXTREMITY VENOUS DUPLEX BILATERAL STAT 07/09/2024 3:25 PM EDT Localized edema documented in this encounter Results * Vascular US lower extremity venous duplex bilateral (07/09/2024 3:25 PM EDT) Anatomical Region Laterality Modality Lower Extremities Ultrasound 07/10/2024 9:20 AM EDT Narrative 07/10/2024 9:20 AM EDT EXAM: [facility] US LOWER EXTREMITY VENOUS DUPLEX BILATERAL HISTORY: [...] DVT. Interpreted by: Electronically signed by TOMER MITCHELL II, MD, PHD at 10-Jul-2024 09:19:12 AM [facility] Procedure Note Tomer Mitchell MD - 07/10/2024 EXAM: VAS US LOWER EXTREMITY VENOUS DUPLEX [...] DVT. Interpreted by: Electronically signed by TOMER MITCHELL II, MD, PHD 09:19:12 AM [facility] us Kenia Castillo CHEMICAL EQUIPMENT CONTROLLER IMG US PROCEDURES Final Result documented in this encounter Visit Diagnoses Diagnosis Localized edema Edema documented in this encounter Care Teams River Rafting Guide Relationship Specialty Start Date End Date Bernie Adam MD [address] [place] [address] PCP - General Family Medicine 08/01/22 documented as of this encounter
--- OUTSIDE RECORDS SUMMARY | 2024-07-11 11:00 | XMS_ITS | Encounter Summary ---
Author Organization [facility] Address [address] [place] [address] Care Team Providers Care Utilities Operator Name Role Phone EvangelistaJeannine stout PIANO ACCOMPANIST - RETAIL SALES ASSOCIATE [employer] Primary Care P rovider Reason for Referral * Outpatient Service (Routine) - Open Specialty Diagnoses / Procedures Referred By Jamal hwang Referred To Contact Cardiology Diagnoses AF (paroxysmal atrial fibrillation) (HCC) Chronic anticoagulation PAF (paroxysmal atrial fibrillation) (HCC) Procedures EKG 12 lead EKG 12 lead Ej Foster MD [address] [place] [phone] Phone: tel: fax: Referral ID Status Reason Start Date Expiration Date Visits Re quested Visits Authorized [id number] Open 07/11/2024 07/11/2025 1 1 Reason for Visit * Reason Comments EKG Only Encounter Details Date Type Department Care Team (Latest Contact Info) Description 07/11/2024 11:00 AM EDT Clinical Support [facility] [address] [phone] AF (paroxysmal atrial fibrillation) (HCC) (Primary Dx); Chronic anticoagulation; PAF (paroxysmal atrial fibrillation) (HCC) Social History Tobacco Use Types Packs/Day Years Used Date Smoking Tobacco: Never Smokeless Tobacco: Never Alcohol Use Standard Drinks/Week Comments Yes 6 (1 standard drink = 0.6 oz pur e alcohol) occasional Sex and Gender Information Value Date Recorded Sex Assigned at Not on file Legal Sex Male 1:46 PM EDT Gender Identity Not on file Sexual Orientation Not on file documented as of this encounter Last Filed Vital Signs Vital Sign Reading Time Taken Comments Blood Pressure - - Pulse - - Temperature - - Respiratory Rate 18 07/11/2024 10:50 AM EDT Oxygen Saturation - - Inhaled Oxygen Concentration - - Weight 142 kg (313 lb) 07/11/2024 10:50 AM EDT Height 182.9 cm (6') 07/11/2024 10:50 AM EDT Body Mass Index 42.45 07/11/2024 10:50 AM EDT documented in this encounter Plan of Treatment Upcoming Encounters Date Type Department Care Team (Late st Contact Info) Description 11/18/2024 10:00 AM EDT Office Visit [facility] Part of [address] [phone] Ej Foster MD [address] [place] [phone] 6 month documented as of this encounter Procedures Procedure Name Priority Date/Time Associated Diagnosis Comments EKG 12-LEAD Routine 07/11/2024 AF (paroxysmal atrial fibrillation) ([facility]) Chronic anticoagulation PAF (paroxysmal atrial fibrillation) ([facility]) documented in this encounter Results * EKG 12 lead (07/11/2024) Ej Foster MD ECG ORDERABLES Final Result documented in this encounter Visit Diagnoses Diagnosis AF (paroxysmal atrial fibrillation) (HCC)- Primary Atrial fibrillation Chronic anticoagulation Encounter for long-term (current) use of anticoagulants PAF (paroxysmal atrial fibrillation) (HCC) Atrial fibrillation documented in this encounter Care Teams Utilities Operator Relationship Specialty Start Date End Date Jeannine Evangelista APRN - RETAIL SALES ASSOCIATE [employer] [address] [place] [address] PCP - General Nurse Practitioner, Family 01/30/20 documented as of this encounter
--- OUTSIDE RECORDS SUMMARY | 2024-07-17 12:44 | XMS_ITS | Encounter Summary ---
Author Organization [facility] Address [address] [place] [address] Care Team Providers Care Rotor Balancer Name Role Phone Bernie Adam MD Primary Care Provider [phone] Encounter Details Date Type Department Care Team (Late st Contact Info) Description 07/09/2024 Results Follow-Up [facility] [address] [place] [address] Kenia Castillo NP [address] [place], [place] [id number] Social History Tobacco Use Types Packs/Day Years [...] on file documented as of this encounter Miscellaneous Notes * Telephone Encounter - Bernie Dunham MA - 07/10/2024 2:45 PM EDT Spoke with pt and he voices understanding * Telephone Encounter - Bernie Dunham MA - 07/10/2024 2:45 PM EDT ----- Message from Kenia Castillo sent at 07/10/2024 2:06 PM EDT ----- He needs to stop the NSAIDS, push fluids, recheck cmp in 1 week, send EKG order to hospital ----- Message ----- From: Bernie Dunham MA Sent: 07/10/2024 1:16 PM EDT To: Kenia Castillo NP ----- Message from Bernie Dunham MA sent at 07/10/2024 1:16 PM EDT ----- * Telephone Encounter - Bernie Dunham MA - 07/10/2024 1:11 PM EDT Spoke with pt and he is agreeable to the EKG, will fax order over to [facility]. 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 He is taking ibuprofen and aspirin, a lot of stuff OTC for restless legs. He said his pain dr sent over gabapentin and he is is on 600mg of that. But kept talking about restless legs. Than said he will call cardiology today. He said his heart was checked back in February. I said we want to make sure its okaysince AFIB could cause swelling. * Telephone Encounter - Bernie Dunham MA - 07/10/2024 1:11 PM EDT ----- Message from Kenia Castillo sent at 07/10/2024 12:33 PM EDT ----- His renal function has decreased by almost half since we did his labs 4 months ago. Is he drinking fluids? Taking any NSAIDs OTC??? ----- Message ----- From: Jessica Arreaga Lab Results In Sent: 07/10/2024 12:14 PM EDT To: Kenia Castillo NP documented in this encounter Plan of Treatment Upcoming Encounters Date Type Department Care Team (Late st Contact Info) Description 09/03/2024 1:00 PM EDT Procedure Visit [facility] [address] [place] [phone] Sher Lou DPM [address] [facility] [place] [address] 09/03/2024 2:00 PM EDT Office Visit [facility] [address] [place] [phone] Kenia Castillo NP [address] [place] [address] documented as of this encounter Visit Diagnoses Not on filedocumented in this encounter Care Teams Rotor Balancer Relationship Specialty Start Date End Date Bernie Adam MD [address] [place] [address] PCP - General Family Medicine 08/01/22 documented as of this encounter
--- OUTSIDE RECORDS SUMMARY | 2024-07-17 12:44 | XMS_ITS | Encounter Summary ---
Author Organization [facility] Address [address] [place] [address] Care Team Providers Care Multimedia Engineer Name Role Phone EvangelistaJeannine levin POLISHING MACHINE OPERATOR - HEAD SWAMPER Primary Care P rovider Reason for Visit * Reason Comments Medication Refill Encounter Details Date Type Department Care Team (Late Contact Info) Description 01/20/2021 Refill [facility] CARDIOLOG[facility] [address] [address] Ej Foster MD [address] [place] [address] [place] [address] Medication Refill Social History Tobacco Use Types Packs/Day Years Used Date Smoking Tobacco: Never Smokeless Tobacco: Never Alcohol Use Standard Drinks/Week Comments Yes 6 (1 standard drink = 0.6 oz pur e alcohol) having had since December Sex and Gender Information Value Date Recorded Sex Assigned at Not on file Legal Sex Male 1:46 PM EDT Gender Identity Not on file Sexual Orientation Not on file documented as of this encounter Plan of Treatment Upcoming Encounters Date Type Department Care Team (Late Contact Info) Description 11/18/2024 10:00 AM EDT Office Visit [facility] CARDI[facility] [address] [phone] Ej Foster MD [address] [place] [address] [place] [address] 6 month documented as of this encounter Visit Diagnoses Not on filedocumented in this encounter Care Teams Multimedia Engineer Relationship Specialty Start Date End Date Jeannine Evangelista APRN - HEAD SWAMPER [address] [place] [address] PCP - General Nurse Practitioner, Family 01/30/20 documented as of this encounter
--- OUTSIDE RECORDS SUMMARY | 2024-07-17 12:44 | XMS_ITS | Encounter Summary ---
Author Organization [facility] Address [address] [place] [address] Care Team Providers Care Licensed Embalmer Supervisor Name Role Phone Jeannine Evangelista RHEUMATOLOGY SPECIALIST - STEEL SPAR OPERATOR Primary Care P rovider Reason for Visit * Reason Onset Date Comments Other 07/11/2024 Swelling Encounter Details Date Type Department Care Team (Late Contact Info) Description 07/11/[address] [address] Ej Foster MD [address] [place] [address] [place] [address] Other (Swelling /) Social History Tobacco Use Types Packs/Day Years [...] Description 11/18/2024 10:00 AM EDT Office Visit [facility] C[facility] [address] [address] Ej Foster MD [address] [place] [address] [place] [address] 6 month documented as of this encounter Visit Diagnoses Not on filedocumented in this encounter Care Teams Licensed Embalmer Supervisor Relationship Specialty Start Date End Date Jeannine Evangelista APRN - STEEL SPAR OPERATOR [address] [place] [address] PCP - General Nurse Practitioner, Family 01/30/20 documented as of this encounter
--- OUTSIDE RECORDS SUMMARY | 2024-07-17 12:44 | XMS_ITS | Encounter Summary ---
Demographics Address [address] [place] [address] Mobile Phone Home Phone Email Address Preferred Language en Marital Status Methodist Affiliation Unknown Race White Ethnic Group Not or Lati no Author Organization [facility] Address [address] [place] [address] Care Team Providers Care Binder And Box Builder Name Role Phone Bernie Adam MD Primary Care Provider [phone] Encounter Details Date Type Department Care Team (Late Contact Info) Description 07/10/2024 Orders Only [facility] [address] [place] [address] Bernie Dunham MA [address] [place], [place] [phone] Localized edema (Primary Dx) Social History Tobacco Use Types Packs/Day Years [...] EDT Procedure Visit [facility] [address] [place] [phone] Sher Lou DPM [address] [place] [address] 09/03/2024 2:00 PM EDT Office Visit [facility] [address] [place] [phone] Kenia Castillo NP [address] [place] [address] Scheduled Orders Name Type Priority Associated Diagnoses Orde r Schedule ECG 12 lead ECG Routine Localized edema Expected: 07/10/2024 (Approximate), Expires: 07/10/2025 documented as of this encounter Visit Diagnoses Diagnosis Localized edema- Primary Edema documented in this encounter Care Teams Binder And Box Builder Relationship Specialty Start Date End Date Bernie Adam MD [address] [place], [place] [phone] PCP - General Family Medicine 08/01/22 documented as of this encounter
--- OUTSIDE RECORDS SUMMARY | 2024-07-17 12:44 | XMS_ITS | Clinical Summary ---
Author Organization [employer] Address [id number] [address] [place] [address] Care Team Providers Care County Extension Agent Name Role Phone Jeannine Evangelista SEC ACCOUNTANT-CALL MANAGER Primary Care Pro vider Allergies No known active allergies Medications allopurinoL (ZYLOPRIM) 100 mg tablet Take 100 mg by mouth daily. Active omeprazole (PriLOSEC) 40 mg capsule Take 40 mg by mouth daily. Active apixaban (ELIQUIS) 5 mg tablet Take 1 tablet (5 mg total) by mouth 2 (two) times a day. 60 tablet 12/29/2019 Active insulin glargine (LANTUS, BASAGLAR) 100 unit/mL (3 mL) insulin pen Inject 10 Units under the skin 2 (two) times a day. 1 Box 12 12/29/2019 Active insulin lispro (HumaLOG) 100 unit/mL insulin pen Inject 2-10 Units under the skin 4 (four) times a day with meals and nightly. 1 Box 1 12/29/2019 Active melatonin (CIRCADIN) tablet Take 1 tablet (3 mg total) by mouth nightly. 30 tablet 12/29/2019 Active metoprolol tartrate (LOPRESSOR) 25 mg tablet Take 0.5 tablets (12.5 mg total) by mouth 2 (two) times a day. 30 tablet 12/29/2019 Active Active Problems Problem Noted Date Diagnosed Date Pneumonia due to COVID-19 virus 12/29/2019 Paroxysmal atrial fibrillation 12/17/2019 COVID-19 12/16/2019 Social History Tobacco Use Types Packs/Day Years Used Date Smoking Tobacco: Never Assessed Childcare Answer Date Recorded Childcare Unknown 12/16/2019 Employment Answer Date Recorded Employment Unknown 12/16/2019 Purpose - Life Answer Date Recorded Purpose and direction in life Unknown Sex and Gender Information Value Date Recorded Sex Assigned at Not on file Legal Sex Male 11:25 AM EDT Gender Identity Not on file Sexual Orientation Not on file Last Filed Vital Signs Vital Sign Reading Time Taken Comments Blood Pressure 108/72 12/29/2019 3:40 PM EST Pulse 98 12/29/2019 3:40 PM EST Temperature 36.9 C (98.4 F) 12/29/2019 3:40 PM EST Respiratory Rate 20 12/29/2019 3:40 PM EST Oxygen Saturation 93% 12/29/2019 3:40 PM EST Inhaled Oxygen Concentration - - Weight 130.3 kg (287 lb 4.2 oz) 12/21/2019 4:27 AM EST Height 185.4 cm (6' 1 ) 12/20/2019 10:0 0 AM EST Body Mass Index 37.9 12/20/2019 10:00 AM EST Plan of Treatment Health Maintenance Due Date Last Done Comments Depression Screening 1962 Tobacco Screening 1962 Zoster (Shingles) Vaccine (2 of 3) 07/17/2012 05/22/2012 Fall Risk Screening 2013 COVID-19 Vaccine (2023-2 5 season) 2023 12/05/2022, 11/01/2021, 11/12/2020, Additional history exists Influenza Vaccine 10/14/2024 11/01/2022, , 10/30/2021, Additional history exists DTaP,Tdap and Td Vaccines (2 - Td or Tdap) 11/28/2028 11/28/2018 Goals Goal Patient Goal Type Associated Problems Recent Progress Patient-Stated? Author Discharge General Yes Jessi Heller, RN Note: Evaluation of progress towards goal: Patient plans to discharge home self care with 's support. Medical Devices Not on file Insurance [employer] Advance Directives * Full Code (Latest Code Status on File) Date Activated Date Inactivated Comments 12/16/2019 12:09 PM 12/29/2019 7:27 PM Care Teams County Extension Agent Relationship Specialty Start Date End Date Jeannine Evangelista, SEC ACCOUNTANT-CALL MANAGER [address] [place] [address] PCP - General Internal Medicine 12/17/19
--- OUTSIDE RECORDS SUMMARY | 2024-07-17 12:44 | XMS_ITS | Clinical Summary ---
Author Organization [facility] Healthcare Address [address] [place] [address] Care Team Providers Care Support Service Tech Name Role Phone Bernie Adam MD Primary Care Provider [phone] Allergies No known active allergies Medications VITAMIN D, CHOLECALCIFEROL, PO Vitamin D Active Bioflavonoid Products (VITAMIN C PLUS PO) Take by mouth Active gabapentin (Neurontin) 300 MG capsule Take 300 mg by mouth in the morning and 300 mg before bedtime. 01/31/20 24 Active amiodarone (Pacerone) 200 MG tablet Oral for 30 Days 04/25/19 25 Active tamsulosin (Flomax) 0.4 MG 24 hr capsuleIndication s:Benign prostatic hyperplasia with nocturia Take 1 capsule (0.4 mg) by mouth at bedtime 90 capsule 1 07/10/19 25 Active rOPINIRole (Requip) 1 MG tabletIndications :Restless Leg Syndrome Take 1.5 tablets (1.5 mg) by mouth at bedtime 135 tablet 1 07/10/19 25 Active omeprazole (PriLOSEC) [address] capsuleIndication s:Gastroesophagea l reflux disease without esophagitis Take 1 capsule (20 mg) by mouth in the morning. Take before meals. Do not crush or chew. 90 capsule 1 07/10/19 25 Active metoprolol tartrate (Lopressor) 50 MG tabletIndications :Primary hypertension (CMS/HCC),Paroxys mal atrial fibrillation (CMS/HCC) Take 1 tablet (50 mg) by mouth in the morning and 1 tablet (50 mg) before bedtime. 180 tablet 1 07/10/19 25 Active metFORMIN (Glucophage) 500 MG tabletIndications :Type 2 diabetes mellitus with diabetic peripheral angiopathy without gangrene (CMS/HCC) Take 1 tablet (500 mg) by mouth in the morning and 1 tablet (500 mg) in the evening. Take with meals. 180 tablet 1 07/10/19 25 Active losartan-hydroCHL OROthiazide (Hyzaar) 50-12.5 MG tabletIndications :Primary hypertension (CMS/HCC) Take 1 tablet by mouth in the morning. 90 tablet 1 07/10/19 25 Active atorvastatin (Lipitor) 10 MG tabletIndications :Other hyperlipidemia Take 1 tablet (10 mg) by mouth in the morning. 90 tablet 3 07/10/19 25 Active apixaban (Eliquis) 5 MG tabletIndications :Paroxysmal atrial fibrillation (CMS/HCC) Take 1 tablet (5 mg) by mouth in the morning and 1 tablet (5 mg) before bedtime. 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 90 tablet 1 07/10/19 25 Active Tirzepatide-Weigh t Management (Zepbound) 2.5 MG/0.5ML solution auto-injectorIndi cations:POOL (obstructive sleep apnea) Inject 2.5 mg under the skin 1 (one) time per week 2 mL 07/10/19 25 Active amitriptyline (Elavil) 10 MG tabletIndications :Insomnia, unspecified type,Lumbar radiculopathy Take 1 tablet (10 mg) by mouth at bedtime 90 tablet 07/18/19 24 025 Discontinued(Re order) apixaban (Eliquis) 5 MG tabletIndications :Paroxysmal atrial fibrillation (CMS/HCC) TAKE 1 TABLET IN THE MORNING AND 1 TABLET BEFORE BEDTIME 180 tablet 1 10/24/19 24 025 Discontinued atorvastatin (Lipitor) 10 MG tabletIndications :Other hyperlipidemia TAKE 1 TABLET IN THE MORNING 90 tablet 3 12/13/19 025 Discontinued(Re order) rOPINIRole (Requip) 1 MG tabletIndications :Restless legs syndrome Take 1 tablet (1 mg) by mouth at bedtime 90 tablet 1 01/31/20 025 Discontinued(Re order) metFORMIN (Glucophage) 500 MG tabletIndications :Type 2 diabetes mellitus with diabetic peripheral angiopathy without gangrene (CMS/HCC) TAKE 1 TABLET IN THE MORNING AND 1 TABLET IN THE EVENING WITH MEALS 180 tablet 3 02/18/19 025 Discontinued(Re order) metoprolol tartrate (Lopressor) 50 MG tablet Take 50 mg by mouth in the morning and 50 mg before bedtime. 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 TAKE 1 TABLET IN THE MORNING 90 tablet 1 03/12/19 025 Discontinued(Re order) losartan-hydroCHL OROthiazide (Hyzaar) 50-12.5 MG tabletIndications :Primary hypertension (CMS/HCC) TAKE 1 TABLET IN THE MORNING 90 tablet 1 03/22/19 025 Discontinued(Re order) omeprazole (PriLOSEC) [address] capsuleIndication s:Gastroesophagea l reflux disease without esophagitis TAKE 1 CAPSULE EVERY MORNING BEFORE A MEAL 90 capsule 3 06/11/19 025 Discontinued(Re order) apixaban (Eliquis) 5 MG tabletIndications :Paroxysmal atrial fibrillation (CMS/HCC) TAKE 1 TABLET IN THE MORNING AND 1 TABLET BEFORE BEDTIME 180 tablet 1 07/10/19 025 Discontinued(Re order) Active Problems Problem Noted Date Diagnosed Date Body mass index (BMI) 40.0-44.9, adult Limb weakness 06/16/2023 Numbness 06/16/2023 Paresthesia 06/16/2023 Lumbar radiculopathy 06/16/2023 Acute left-sided low back pain without sciatica 10/25/2022 Left hip pain 10/25/2022 History of poliomyelitis 10/04/2022 Osteoarthritis of both knees 10/04/2022 Primary osteoarthritis involving multiple joints 10/04/2022 Restless legs syndrome 07/28/2022 GERD without esophagitis 07/18/2022 Hyperlipidemia 07/18/2022 Hypertension 07/18/2022 Idiopathic chronic gout of left foot without top hus 07/18/2022 PVD (peripheral vascular disease) 08/30/2021 Acquired leg length discrepancy 05/26/2021 Status post total left knee replacement 03/15/19 Difficulty walking 03/07/2021 Artificial knee joint present 03/03/2021 Vitamin D deficiency 05/14/2020 [id number] condition 04/27/2020 COVID-19 04/27/2020 Type 2 diabetes mellitus without complication Paroxysmal atrial fibrillation 12/17/2019 Impaired fasting glucose 12/12/2018 Peripheral edema 11/28/2018 Tinea pedis 11/28/2018 Psoriasis 06/26/2017 Chronic gouty arthritis 07/29/2015 Polio 07/29/2015 Resolved Problems Problem Noted Date Diagnosed Date Resolved Date Other viral pneumonia 12/18/20192023 Pneumonia due to COVID-19 virus 12/16/2019 09/19/2023 Pure hyperglyceridemia 12/12/201810/04 Sinus pain 12/12/2018 09/19/2023 Encounters Date Type Department Care Team Description 07/10/2024 Orders Only [facility] [address] [place] [address] Bernie Dunham MA Localized edema (Primary Dx) 07/09/2024 2:45 PM EDT Ancillary Procedure [facility] [address] [facility] [address] [place] [address] Localized edema 07/09/2024 2:00 PM EDT Office Visit [facility] [address] [place] [address] Kenai Castillo NP Localized edema (Primary Dx); Restless legs syndrome; POOL (obstructive sleep apnea); Polio; Primary hypertension (CMS/HCC); Benign prostatic hyperplasia with nocturia; Gastroesophageal reflux disease without esophagitis; Type 2 diabetes mellitus with diabetic peripheral angiopathy without gangrene (CMS/HCC); Other hyperlipidemia; Paroxysmal atrial fibrillation (CMS/HCC); Insomnia, unspecified type; Lumbar radiculopathy; 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 ([place] [place] [address] [facility] [place] [address] Localized edema 07/09/2024 Results Follow-Up [facility] [address] [facility] [place] [place] [address] Kenia Castillo NP 07/09/2024 Telephone [facility] [address] [place] [address] Kenia Castillo NP 07/09/2024 Bamboo flowsheet [facility] [address] [place] [address] Kenia Castillo NP 07/09/2024 Travel 07/08/2024 Refill [facility] [address] [place] [address] Kenia Castillo NP Paroxysmal atrial fibrillation ([facility]/HCC) 07/05/2024 Telephone [facility] [address] [place] [address] Bibi Ladd MA 06/28/2024 Telephone [facility] [address] [facility] [place] [address] Kenia Castillo NP 06/18/2024 Telephone [facility] [address] [facility] [place] [address] Bibi Ladd MA 06/10/2024 Refill [facility] [address] [place] [address] Kenia Castillo NP Gastroesophageal reflux disease without esophagitis 05/23/2024 Orders Only [facility] [address] [place] [address] Bernie Adam MD Acute cough (Primary Dx) 05/23/2024 Telephone [facility] [address] [facility] [place] [place] [phone] Bernie Adam MD 05/20/2024 2:00 PM EDT [facility] [address] [facility] [place] [place] [phone] Kenia Castillo NP Type 2 diabetes mellitus without complication, without long-term current use of insulin (Primary Dx); Acute bacterial conjunctivitis of both eyes; Non-recurrent acute suppurative otitis media of left ear without spontaneous rupture of tympanic membrane 05/20/2024 Bamboo flowsheet [facility] [address] [facility] [place] [place] [phone] Kenia Castillo NP 05/20/2024 Travel 04/29/2024 2:45 PM EDT Procedure Visit [facility] [address] [place] [address] Sher Lou, DPLesia Dermatophytosis of nail (Primary Dx); Dystrophic nail; Pain around toenail, right foot; Pain around toenail, left foot 04/29/2024 Bamboo flowsheet [facility] [address] [place] [place] [address] Sher Lou DPLesia 04/29/2024 Travel 04/26/2024 Travel from Last 3 Months Immunizations Immunization Administration Dates Next Due Influenza, High Dose Seasona l, Preservative Free 11/21/2023,11/01/2022,11/27/2018,11/27 Influenza, High-dose Seasona l, Quadrivalent, Preservative Free 10/30/2021,11/12/2020,11/11/2020,11/27 Influenza, Seasonal, Quadriv alent, Adjuvanted 11/01/2021 Influenza, injectable, quadrivalent 11/22/2016 Influenza, injectable, quadr ivalent, preservative free 11/28/2019,11/28/2018,11/22/2016,12/11 Influenza, seasonal, injectable 03/13/2013,02/01 Influenza, seasonal, injecta ble, preservative free 01/21/2015,03/13/2013 Pfizer Purple Cap SARS-CoV-2 Vaccination 11/11/2020,04/12/2020,03/19/2020 Pneumococcal Conjugate PCV 13 07/29/2015 Pneumococcal Conjugate PCV 20 11/21/2023 Pneumococcal Polysaccharide PPSV23 12/02/2022, RSV, recombinant, protein nix bunit RSVpreF, adjuvant reconstitu, 120mcg/0.5mL, PF (Arexvy) 12/05/2022 SARS-COV-2 (COVID-19) vaccin e, mRNA, spike protein, LNP, PF, 50 mcg/0.5 mL 11/21/2023 SARS-COV-2 (COVID-19) vaccin e, mRNA, spike protein, LNP, bivalent, preservative free, 30 mcg/0.3 mL dose, mauro-sucrose formulation 11/01/2021 SARS-CoV-2, Unspecified 11/01/2021 Tdap 11/28/2018 Zoster, live 05/22/2012 Family History Medical History Relation Name Comments Stroke Father Heart disease Mother Hypertension Mother Stroke Mother Relation Name Status Comments Father Mother Social History Tobacco Use Types Packs/Day Years Used Date Smoking Tobacco: Never Smokeless Tobacco: Never Tobacco Cessation:Counseling Given: Not Answered Alcohol Use Standard Drinks/Week Comments Yes 3 [...] Pulse 61 07/09/2024 1:53 PM EDT Temperature 37.2 C (98.9 F) 05/20/2024 1:54 PM EDT Respiratory Rate - - Oxygen Saturation 96% 07/09/2024 1:53 PM EDT Inhaled Oxygen Concentration - - Weight 144 kg (316 lb 6.4 oz) 07/09/2024 1:53 PM EDT Height 181.6 cm (5' 11.5 ) 07/09/2024 1:53 PM ED T Body Mass Index 43.51 07/09/2024 1:53 PM EDT Plan of Treatment Upcoming Encounters Date Type Department Care Team (Late st Contact Info) Description 09/03/2024 1:00 PM EDT Procedure Visit [facility] [address] [place] [phone] Sher Lou DPM [address] [place], [place] [phone] 09/03/2024 2:00 PM EDT Office Visit [facility] [address] [place] [phone] Kenia Castillo NP [address] [place], [place] [phone] Health Maintenance Due Date Last Done Comments CT Colonography 1948 Colonoscopy 1948 Colorectal Cancer Screening 1948 FIT-DNA 1948 FIT 1948 FOBT 1948 Sigmoidoscopy 1948 Diabetes: Retinopathy Screening 12/02/2022 Diabetes: Hemoglobin A1C 08/19/2024 04/2 025, 02/20/2024, 09/19/2023, Additional history exists Diabetes: Urine Protein Screening 02/19/2025 02/20/2024, 11/01/2022, 12/07/2021, Additional history exists Medicare Annual Wellness (AWV) 02/19/2025 0 02/20/2024, 02/20/2024, 12/02/2022, Additional history exists Influenza Vaccine Completed 11/21/2023, , 11/01/2021, Additional history exists Pneumococcal Vaccine: 65+ Years Completed 11/21/2023, 12/02/2022, 07/29/2015, Additional history exists Procedures Procedure Name Priority Date/Time Associated Diagnosis Comments XR CHEST 2 VIEWS STAT 07/09/2024 3:27 PM EDT Localized edema VASC US LOWER EXTREMITY VENOUS DUPLEX BILATERAL STAT 07/09/2024 3:25 PM EDT Localized edema TSH W/REFLEX TO FT4 Routine 07/09/2024 2 :25 PM EDT Localized edema COMPREHENSIVE METABOLIC PANEL Routine 07/09/2024 2:25 PM EDT Localized edema CBC (INCLUDES DIFF/PLT) Routine 07/09/2024 2:25 PM EDT Localized edema B-TYPE NATRIURETIC PEPTIDE Routine 07/09/2024 2:25 PM EDT Localized edema POCT GLYCATED HEMOGLOBIN, TOTAL Routine 05/20/2024 2:14 PM EDT Type 2 diabetes mellitus without complication, without long-term current use of insulin MICROALBUMIN / CREATININE URINE RATIO Routine 02/20/2024 2:47 PM EST Encounter for wellness examination Type 2 diabetes mellitus with other specified complication, without long-term current use of insulin ([facility]) COLOR FUNDUS PHOTOGRAPHY - OU - BOTH EYES Routine 12/02/2020 12:00 PM EDT Type 2 diabetes mellitus without complications ([facility]) Encounter for screening for eye and ear disorders from Last 3 Months or Most Recently Relevant to Health Maintenance Results * XR chest 2 views (07/09/2024 [...] electronically signed and approved by theinterpreting radiologist. us Kenia Castillo POWERHOUSE ELECTRICIAN APPRENTICE IMG XR PROCEDURES Final Result * Vascular US lower extremity venous duplex bilateral (07/09/2024 3:25 PM EDT) Anatomical Region Laterality Modality Lower Extremities Ultrasound 07/10/2024 9:20 AM EDT Narrative 07/10/2024 9:20 AM EDT EXAM: VASC US LOWER EXTREMITY VENOUS DUPLEX [...] II, MD, PHD at 10-Jul-2024 09:19:12 [address] [facility] Procedure Note Tomer Padgett MD - [...] signed by TOMER PADGETT II, MD, PHD 09:19:12 AM [facility] Kenia Castillo NP IMG US PROCEDURES Final Result * TSH W/REFLEX TO FT4 (07/09/2024 2:25 PM EDT) Pathologist [facility] [place] TSH W/REFLEX TO FT4 3.37 0.40 - 4.50 mIU/L [facility] 07/09/2024 2:25 PM EDT 07/09/2024 2:25 PM EDT Narrative Resulting Agency Comment Performing Organization Information Site ID: QPT Name: [facility] Address: [address] [place] [address], [address] [place] [phone] Director: Curtis Lyons MD Kenia Castillo NP LAB BLOOD ORDERABLES Final Resu lt [facility] * (ABNORMAL) CBC and differential (07/09/2024 2:25 PM EDT) Pathologist [facility] [place] WHITE BLOOD CELL COUNT 5.4 3.8 - [...] Performing Organization Information Site ID: QPT Name: [facility] Address: [address] [place] [address], [address] [place] [phone] Director: Curtis Lyons MD Kenia Castillo NP LAB BLOOD ORDERABLES Final Resu lt Performing Organization Address [facility] de Phone Number [facility] * B-type natriuretic [...] Performing Organization Information Site ID: QPT Name: [facility] Address: [address] [place] [address], [address] [place] [phone] Director: Curtis Lyons MD Kenia Castillo NP LAB BLOOD ORDERABLES Final Resu lt Performing Organization Address [facility] de Phone Number [facility] * (ABNORMAL) Comprehensive metabolic panel (07/09/2024 [...] Performing Organization Information Site ID: QPT Name: [facility] Address: [address] [place] [address], [address] [place] [phone] Director: Curtis Lyons MD us Kenia Castillo NP LAB BLOOD ORDERABLES Final Resu lt [facility] * (ABNORMAL) POCT Glycated hemoglobin, total (05/20/2024 2:14 PM EDT) Hemoglobin A1C 6.3 Capillary 05/20/2024 2:14 PM EDT Kenia Castillo NP POINT OF CARE TEST ENTER/EDIT O RDERABLES Final Result * Microalbumin / creatinine, urine ratio (02/20/2024 2:47 PM EST) CREATININE, RANDOM URINE 154 20 - 320 mg/dL [facility] ALBUMIN, URINE 0.7 See Note: mg/dL [facility] Comment: Reference Range: Reference Range Not established ALBUMIN/CREATININE RATIO, RANDOM URINE 5 <30 mg/g creat [facility] Comment: The ADA defines abnormalities in albumin excretion as follows: Albuminuria Category Result (mg/g creatinine) Normal to Mildly increased <30 Moderately increased 30-299 Severely increased > OR = 300 The ADA recommends that at least two of three specimens collected within a 3-6 month period be abnormal before considering a patient to be within a diagnostic category. Urine Urine specimen obtained by clean catch procedure / Unknown 02/20/2024 2:47 PM EST 02/20/2024 2:47 PM EST Narrative Resulting Agency Comment Performing Organization Information Site ID: QPT Name: [facility] Address: [address] [place] [address], [address] [place] [phone] Director: Curtis Lyons MD Kenia Castillo NP LAB URINE ORDERABLES Final Resu lt [facility] * Color Fundus Photography - OU - Both Eyes (12/02/2020 12:00 PM EDT) Anatomical Region Laterality Modality Head Fundus Photograp hy 12/02/2020 12:0 0 PM EDT Narrative 12/02/2020 12:00 PM EDT PERFORMED AT [facility] LOCATION:[id number] [facility] Procedure Note CONVERSION, GENERIC - 06/29/2022 PERFORMED AT [facility] LOCATION:[id number] [facility] Jeannine Evangelista NP OPHTH PHOTOGRAPHY Final Result from Last 3 Months or Most Recently Relevant to Health Maintenance Insurance [facility] MEDIC[facility] Care Teams Support Service Tech Relationship Specialty Start Date End Date Bernie Adam MD [address] [place] [address] PCP - General Family Medicine 08/01/22
--- OUTSIDE RECORDS SUMMARY | 2024-07-17 12:44 | XMS_ITS | Encounter Summary ---
Author Organization [facility] Address [address] [place] [address] Care Team Providers Care Informix Developer Name Role Phone Jeannine Evangelista STONEMASON - ARMHOLE RAISER LOCKSTITCH Primary Care P rovider Encounter Details Date Type Department Care Team (Late st Contact Info) Description 07/11/2024 Orders Only [facility] [address] [address] Ce Mccormick Social History Tobacco Use Types Packs/Day Years [...] Description 11/18/2024 10:00 AM EDT Office Visit [facility] [address] [address] Ej Foster MD [address] [place] [address] 6 month documented as of this encounter Visit Diagnoses Not on filedocumented in this encounter Care Teams Informix Developer Relationship Specialty Start Date End Date Jeannine Evangelista APRN - ARMHOLE RAISER LOCKSTITCH [address] [place] [id number] PCP - General Nurse Practitioner, Family 01/30/20 documented as of this encounter
--- OUTSIDE RECORDS SUMMARY | 2024-07-17 12:44 | XMS_ITS | Encounter Summary ---
Author Organization [facility] Address [address] [place] [address] Care Team Providers Care Residential Sales Manager Name Role Phone Jeannine Evangelista AUTOMOTIVE PARTS MANAGER - IN SHOP SERVICE TECHNICIAN Primary Care P rovider Encounter Details Date Type Department Care Team (Late st Contact Info) Description 07/11/2024 Abstract [facility] [address] [address] Bernie Knight MA Social History Tobacco Use Types Packs/Day Years [...] Description 11/18/2024 10:00 AM EDT Office Visit [facility] [address] [address] Ej Foster MD [address] [place] [address] [place] [address] 6 month documented as of this encounter Visit Diagnoses Not on filedocumented in this encounter Care Teams Residential Sales Manager Relationship Specialty Start Date End Date Jeannine Evangelista, AUTOMOTIVE PARTS MANAGER - IN SHOP SERVICE TECHNICIAN [address] [place] [address] PCP - General Nurse Practitioner, Family 01/30/20 documented as of this encounter
--- OUTSIDE RECORDS SUMMARY | 2024-07-17 12:45 | XMS_ITS | Encounter Summary ---
Author Organization [facility] Address [address] [place] [address] Care Team Providers Care Table Saw Operator Name Role Phone Bernie Adam MD Unavailable [phone] Bernie Adam MD Primary Care Provider [phone] Bernie Adam MD Unavailable [phone] Bernie Adam MD Unavailable [phone] Encounter Details Date Type Department Care Team (Late st Contact Info) Description 11/16/2022 [facility] [address] [place] [phone] Sher Lou, [address] [place], [place] [phone] Social History Tobacco Use Types Packs/Day Years Used Date Smoking Tobacco: Never Smokeless Tobacco: Never Alcohol Use Standard Drinks/Week Comments Yes 0 (1 standard drink = 0.6 oz pure alcohol) drinks alcohol 2-3 times a week PHQ-2 Answer Date Recorded Patient Health Questionnaire-2 Score 0 11/01/2022 Sex and Gender Information Value Date Recorded Sex Assigned at Not on file Legal Sex Male 7:26 PM EDT Gender Identity Not on file Sexual Orientation Not on file documented as of this encounter Plan of Treatment Upcoming Encounters Date Type Department Care Team (Late st Contact Info) Description 09/03/2024 1:00 PM EDT [facility] [address] [place] [address] Sher Lou, DPM [address] [place] [address] 09/03/2024 2:00 PM EDT Office Visit [facility] [address] [place] [phone] Kenia Castillo NP [address] [place] [address] documented as of this encounter Visit Diagnoses Not on filedocumented in this encounter Care Teams Table Saw Operator Relationship Specialty Start Date End Date Bernie Adam MD [address] [place] [address] PCP - ACO Reach 07/07/22 04/13/23 Bernie Adam MD [address] [place] [address] PCP - General Family Medicine 08/01/22 Bernie Adam MD [address] [place] [address] PCP - ACO Reach 06/14/23 03/21/24 Bernie Adam MD [address] [place] [address] PCP - ACO Reach 03/29/24 05/16/24 documented as of this encounter
--- OUTSIDE RECORDS SUMMARY | 2024-07-17 12:45 | XMS_ITS | Encounter Summary ---
Author Organization [facility] Address [address] [place] [place] [address] Care Team Providers Care Drum Drier Name Role Phone Bernie Adam MD Primary Care Provider [phone] Encounter Details Date Type Department Care Team (Latest Contact Info) Description 07/09/2024 Travel Social History Tobacco Use Types Packs/Day Years [...] 1:00 PM EDT Procedure Visit [facility] [address] [place] [phone] Sher Lou, SAHARA [address] [place], [place] [phone] 09/03/2024 2:00 PM EDT Office Visit [facility] [address] [place] [address] Kenia Castillo NP [address] [place] [address] documented as of this encounter Visit Diagnoses Not on filedocumented in this encounter Care Teams Drum Drier Relationship Specialty Start Date End Date Bernie Adam MD [address] [place] [address] PCP - General Family Medicine 08/01/22 documented as of this encounter
--- OUTSIDE RECORDS SUMMARY | 2024-07-17 12:45 | XMS_ITS | Encounter Summary ---
Author Organization [facility] Address [address] [place] [address] Care Team Providers Care Hydroelectric Production Technician Name Role Phone Bernie Adam MD Unavailable Bernie Adam MD Primary Care Provider [phone] Bernie Adam MD Unavailable [phone] Bernie Adam MD Unavailable [phone] Encounter Details Date Type Department Care Team (Late st Contact Info) Description 09/23/2022 Orders Only [facility] [address] [place] [phone] Bernie Adam MD [address] [place], [place] [id number] Pulled muscle (Primary Dx) Social History Tobacco Use Types Packs/Day Years Used Date Smoking Tobacco: Never Smokeless Tobacco: Never Alcohol Use Standard Drinks/Week Comments Yes 0 (1 standard drink = 0.6 oz pur e alcohol) 6 pack a week Sex and Gender Information Value Date Recorded Sex Assigned at Not on file Legal Sex Male 7:26 PM EDT Gender Identity Not on file Sexual Orientation Not on file documented as of this encounter Plan of Treatment Upcoming Encounters Date Type Department Care Team (Late st Contact Info) Description 09/03/2024 1:00 PM EDT Procedure Visit [facility] [address] [place] [phone] Sher Lou, DAVYM [address] [place] [address] 09/03/2024 2:00 PM EDT Office Visit [facility] [address] [facility] [place] [phone] Kenia Castillo NP [address] [facility] [place] [address] documented as of this encounter Visit Diagnoses Diagnosis Pulled muscle- Primary Unspecified site of sprain and strain documented in this encounter Care Teams Hydroelectric Production Technician Relationship Specialty Start Date End Date Bernie Adam MD [address] [facility] [place] [address] PCP - ACO Reach 07/07/22 04/13/23 Bernie Adam MD [address] [facility] [place] [address] PCP - General Family Medicine 08/01/22 Bernie Adam MD [address] [facility] [place] [address] PCP - ACO Reach 06/14/23 03/21/24 Bernie Adam MD [address] [facility] [place] [address] PCP - ACO Reach 03/29/24 05/16/24 documented as of this encounter
--- OUTSIDE RECORDS SUMMARY | 2024-07-17 12:45 | XMS_ITS | Patient Health Record ---
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 Moreira's box.Catie Amy 12/29/2023 09:48:45 AM >LM to review approval.Catie Amy 12/29/2023 09:55:00 AM >Pt called back. I reviewed approval with him and explained that we already have him scheduled for his extractions. Pt said he is ready for it. I explained that after the extractions are completed, he will need 8 weeks of healing time before starting CD series. Pt understood and agreed.Catie Amy 04/08/2024 03:06:29 PM >Called pt and reviewed approval of both upper and lower CDs and confirmed that we were going to be moving forward with both. Pt confirmed. Scheduled series.Catie Amy 05/23/2024 02:00:54 PM >Insert is scheduled after expiration date. Marked as resubmit/. Action sent to Rocio.Jama Cindy 05/27/2024 01:00:40 PM >Submitted request for prior on [employer] website, Rocio Yun 05/31/2024 10:44:31 AM >Prior auth extension approved, Asmita Haddad 06/06/2024 01:38:11 PM >CDs were delivered to pt today. Marked as completed tx. 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 Moreira's box., Asmita Haddad 04/08/2024 03:06:00 PM >Called pt and reviewed approval of both upper and lower CDs and confirmed that we were going to be moving forward with both. Pt confirmed. Scheduled series., Asmita Haddad 06/06/2024 01:37:57 PM >CDs were delivered to pt today. Marked as completed tx. Referral Priority Routine Medications Medication SIG (Take, Route, Frequency, Duration) Notes Start Date End Date Status Metoprolol Tartrate 25 MG Oral for 90 Days Active Atorvastatin Calcium 10 MG Oral for 90 Days Active Amiodarone HCl 200 MG Oral for 90 Days Active Allopurinol 100 MG Oral for 90 Days Active HYDROcodone-Acetaminophen 5-325 MG 1 tablet as needed Orally every 6 hrs for 3 days 02/28/2024 Active HYDROcodone-Acetaminophen 5-325 MG 1 tablet as needed Orally every 6 hrs for 3 days 02/28/2024 Active Amiodarone HCl 200 MG Oral for 30 Days Active Eliquis 5 MG 1 tablet Orally Twic e a day for 30 day(s) 06/21/2023 Active tiZANidine HCl 2 MG Oral for 5 Days Active metFORMIN HCl 500 MG Oral for 90 Days Active Tamsulosin HCl 0.4 MG Oral for 90 Days Active rOPINIRole HCl 1 MG Oral for 90 Days Active Omeprazole 20 MG Oral for 90 Days Active Social History Tobacco Use: Social History Observation Description Date Details (start date - stop date) Never Smoker NA - NA Sex Assigned At : Social History Observation Description Sex Assigned At Male Tobacco Control (Standard) Question Answer Notes Tobacco use: Nonsmoker Additional Findings: Tobacco non-user Current no nsmoker Section Notes: Nutrition counseling focusin g on a low sodium and low sugar diet discussed with the patient, as well as appropriate weekly exercise and increased activity as tolerated to work towards a more optimal body mass index for improved overall health. Nutrition counseling focusin g on a low sodium and low sugar diet discussed with the patient, as well as appropriate weekly exercise and increased activity as tolerated to work towards a more optimal body mass index for improved overall health. Problems Problem Type SNOMED Code ICD Code Onset Dates Problem Status W/U Status Risk Notes Problem Body mass index 40+ - morbidly obese (188654258) BMI 40.0-44.9, adult (Z68.41) Active confirmed Vital Signs Heart Rate 66 /min 06/13/2024 Height-cm 182.88 cm 06/24/2024 Blood pressure diastolic 89 mm Hg 06/13/2024 Weight-kg 141.98 kg 06/24/2024 Height 72 in 06/24/2024 Blood pressure systolic 153 mm Hg 06/13/2024 Weight 313 lbs 06/24/2024 BMI 42.45 kg/m2 06/24/2024 Encounters Encounter Location Date Provider Diagnosis [facility] [address] [place] [id number] 02/28/2024 Soo Moreira BMI 40.0-44.9, rasta lt Z68.41 ; Dietary counseling Z71.3 ; Exercise counseling Z71.82 ; Necrosis of pulp K04.1 ; Encounter for dental examination and cleaning with abnormal findings Z01.21 and Complete loss of teeth, unspecified cause, class I K08.[address] [facility] [address] [place] [id number] 04/24/2024 Soo Moreira Other specified disorders of teeth and supporting structures K08.[address] [facility] [address] [place] [id number] 05/01/2024 Soo Moreira Other specified disorders of teeth and supporting structures K08.8 [facility] [address] [place] [id number] 05/09/2024 Soo Hatala Other specified disorders of teeth and supporting structures K08.8 [facility] [address] [place] [address], [place] [id number] 05/16/2024 Soo Hatala Other specified disorders of teeth and supporting structures K08.8 [facility] [address] [place] [address], [place] [id number] 05/23/2024 Soo Hatala Other specified disorders of teeth and supporting structures K08.8 [facility] [address] [place] [address], [place] [id number] 05/30/2024 Soo Hatala Other specified disorders of teeth and supporting structures K08.8 [facility] [address] [place] [address], [place] [id number] 06/06/2024 Soo Hatala BMI 40.0-44.9, rasta lt Z68.41 and Complete loss of teeth, unspecified cause, class I K08.101 [facility] [address] [place] [address], [place] [id number] 06/10/2024 Soo Harish BMI 40.0-44.9, rasta lt Z68.41 and Other specified disorders of teeth and supporting structures K08.8 [facility] [address] [place] [address], [place] [id number] 06/13/2024 Soo Hatala Other specified disorders of teeth and supporting structures K08.[address] [facility] [address] [place] [address], [place] [id number] 06/24/2024 Soo Hatala Other specified disorders of teeth and supporting structures K08.8 Main [address] [facility], [place] [id number] 08/25/2023 Soo Helioala [facility] [address] [place] [address], [place] [id number] 11/08/2023 Soo Hatala [facility] [address] [place] [address], [place] [id number] 02/28/2024 Soo Harish Assessments Encounter Date Diagnosis (ICD Code) Assessment Notes Treatment Notes Treatment Clinical Notes Section Notes 02/28/2024 BMI 40.0-44.9, adult (ICD-10 - Z68.41) 04/24/2024 Other specified disorders of teeth and supporting structures (ICD-10 - K08.8) 05/01/2024 Other specified disorders of teeth and supporting structures (ICD-10 - K08.8) 05/09/2024 Other specified disorders of teeth and supporting structures (ICD-10 - K08.8) 05/16/2024 Other specified disorders of teeth and supporting structures (ICD-10 - K08.8) 05/23/2024 Other specified disorders of teeth and supporting structures (ICD-10 - K08.8) 05/30/2024 Other specified disorders of teeth and supporting structures (ICD-10 - K08.8) 06/06/2024 BMI 40.0-44.9, adult (ICD-10 - Z68.41) 06/10/2024 BMI 40.0-44.9, adult (ICD-10 - Z68.41) 06/13/2024 Other specified disorders of teeth and supporting structures (ICD-10 - K08.8) 06/24/2024 Other specified disorders of teeth and supporting structures (ICD-10 - K08.8) 06/10/2024 Other specified disorders of teeth and supporting structures (ICD-10 - K08.8) 06/06/2024 Complete loss of teeth, unspecified cause, class I (ICD-10 - K08.101) 02/28/2024 Dietary counseling (ICD-10 - Z71.3) 02/28/2024 Exercise counseling (ICD-10 - Z71.82) 02/28/2024 Necrosis of pulp (ICD-10 - K04.1) 02/28/2024 Encounter for dental examination and cleaning with abnormal findings (ICD-10 - Z01.21) 02/28/2024 Complete loss of teeth, unspecified cause, class I (ICD-10 - K08.101) Plan Of Treatment No Information Insurance Providers Payer Name Payer Address Payer Phone Subscriber Number Group Number Insured Name Patient Relationship to Insured Coverage Start Date Coverage End Date [facility] [address] [place] [phone] [id number] Yang Card Self - patient is the insured 4 Medical (General) History Medical History History ICD Code high blood pressure artificial joints blood thinner A-fib diabetes
--- OUTSIDE RECORDS SUMMARY | 2024-07-17 12:45 | XMS_ITS | Encounter Summary ---
Author Organization [facility] Address [address] [place] [address] Care Team Providers Care Bleach Analyst Name Role Phone Bernie Adam MD Primary Care Provider [phone] Bernie Adam MD Unavailable [phone] Bernie Adam MD Unavailable [phone] Reason for Visit * Reason Comments Med Refill Encounter Details Date Type Department Care Team (Late st Contact Info) Description 09/12/2023 Refill [facility] [address] [place] [address] Kenia Castillo NP [address] [place], [place] [id number] Type 2 diabetes mellitus with diabetic peripheral angiopathy without gangrene (CMS/HCC) Social History Tobacco Use Types Packs/Day Years Used Date Smoking Tobacco: Never Smokeless Tobacco: Never Alcohol Use Standard Drinks/Week Comments Yes 9 (1 standard drink = 0.6 oz pure alcohol) drinks alcohol 2-3 times a week; caffeine intake:2 cups daily AUDIT-C Answer Date Recorded Q1: How often do you have a drink containing alc ohol? 2-3 times a week 07/18/2023 Q2: How many drinks containi ng alcohol do you have on a typical day when you are drinking? 3 or 4 07/18/2023 Q3: How often do you have si x or more drinks on one occasion? Never 07/18/2023 PHQ-2 Answer Date Recorded Patient Health Questionnaire-2 Score 0 12/02/2022 Sex and Gender Information Value Date Recorded Sex Assigned at Not on file Legal Sex Male 7:26 PM EDT Gender Identity Not on file Sexual Orientation Not on file documented as of this encounter Miscellaneous Notes * Telephone Encounter - Justina Ryan MA - 09/13/2023 5:55 AM EDT Approving, but needs appt for additional refills. documented in this encounter Plan of Treatment Upcoming Encounters Date Type Department Care Team (Late st Contact Info) Description 09/03/2024 1:00 PM EDT Procedure [facility] [address] [place] [address] Sher Lou DPM [address] [facility] [place] [address] 09/03/2024 2:00 PM EDT Office Visit [facility] [address] [facility] [place] [phone] Kenia Castillo NP [address] [place] [address] documented as of this encounter Visit Diagnoses Diagnosis Type 2 diabetes mellitus with diabetic peripheral angiopathy without gangrene (CMS/HCC) documented in this encounter Care Teams Bleach Analyst Relationship Specialty Start Date End Date Bernie Adam MD [address] [place] [address] PCP - General Family Medicine 08/01/22 Bernie Adam MD [address] [facility] [address] PCP - ACO Reach 06/14/23 03/21/24 Bernie Adam MD [address] [facility] [address] PCP - ACO Reach 03/29/24 05/16/24 documented as of this encounter
--- OUTSIDE RECORDS SUMMARY | 2024-07-17 12:45 | XMS_ITS | Referral Summary ---
Author Organization [facility] Address [address] [place] [address] Care Team Providers Care Electrical Technician Name Role Phone Unavailable Primary Care Provider Unavailabl e Social History Tobacco Use Types Packs/Day Years Used Date Smoking Tobacco: Never Assessed Sex and Gender Information Value Date Recorded Sex Assigned at Not on file Gender Identity Not on file Sexual Orientation Not on file Plan of Treatment Not on file
--- OUTSIDE RECORDS SUMMARY | 2024-07-17 12:45 | XMS_ITS | Encounter Summary ---
Author Organization [facility] Address [address] [place] [address] Care Team Providers Care Ore Digger Name Role Phone Bernie Adam MD Primary Care Provider [phone] Reason for Visit * Reason Comments Med Refill Encounter Details Date Type Department Care Team (Late st Contact Info) Description 07/08/2024 Refill [facility] [address] [place] [address] Kenia Castillo NP [address] [place], [place] [phone] Paroxysmal atrial fibrillation (CMS/HCC) Social History Tobacco Use Types Packs/Day [...] Procedure Visit [facility] [address] [place] [address] Sher Lou, SAHARA [address] [place] [address] 09/03/2024 2:00 PM EDT Office Visit [facility] [address] [place] [phone] Kenia Castillo NP [address] [place], [place] [phone] documented as of this encounter Visit Diagnoses Diagnosis Paroxysmal atrial fibrillation (CMS/HCC) Atrial fibrillation documented in this encounter Care Teams Ore Digger Relationship Specialty Start Date End Date Bernie Adam MD [address] [place], [place] [phone] PCP - General Family Medicine 08/01/22 documented as of this encounter
--- OUTSIDE RECORDS SUMMARY | 2024-07-17 12:45 | XMS_ITS | Encounter Summary ---
Author Organization [facility] Address [address] [place] [address] Care Team Providers Care Supervisor Agency Appointments Name Role Phone Bernie Adam MD Primary Care Provider [phone] Encounter Details Date Type Department Care Team (Late Contact Info) Description 07/09/2024 Bamboo flowsheet [facility] [address] [place] [address] Kenia Castillo NP [address] [place], [place] [phone] Social History Tobacco Use Types Packs/Day Years [...] Department Care Team (Late Contact Info) Description 09/03/2024 1:00 PM EDT Procedure Visit [facility] [address] [place] [address] Sher Lou DPM [address] [place] [address] 09/03/2024 2:00 PM EDT Office Visit [facility] [address] [place] [address] Kenia Castillo NP [address] [place], [place] [phone] documented as of this encounter Visit Diagnoses Not on filedocumented in this encounter Care Teams Supervisor Agency Appointments Relationship Specialty Start Date End Date Bernie Adam MD [address] [place], [place] [phone] PCP - General Family Medicine 08/01/22 documented as of this encounter
--- OUTSIDE RECORDS SUMMARY | 2024-07-17 12:45 | XMS_ITS | Encounter Summary ---
Author Organization [facility] Address [address] [place] [address] Care Team Providers Care Window Tinter Name Role Phone Bernie Adam MD Primary Care Provider Encounter Details Date Type Department Care Team (Late st Contact Info) Description 07/09/2024 Telephone [facility] [address] [place] [address] Kenia Castillo NP [address] [place] [address] Social History Tobacco Use Types Packs/Day Years [...] encounter Miscellaneous Notes * Telephone Encounter - Kenia Castillo NP - 07/09/2024 2:31 PM EDT Zepbound sent to pharmacy, most likely needs PA, please start, will need 4 week follow up if approved documented in this encounter Plan of Treatment Upcoming Encounters Date Type Department Care Team (Late st Contact Info) Description 09/03/2024 1:00 PM EDT Procedure Visit [facility] [address] [place] [phone] Sher Lou DPLesia [address] [facility] [place] [address] 09/03/2024 2:00 PM EDT Office Visit [facility] [address] [place] [address] Kenia Castillo NP [address] [place] [address] documented as of this encounter Visit Diagnoses Not on filedocumented in this encounter Care Teams Window Tinter Relationship Specialty Start Date End Date Bernie Adam MD [address] [place] [address] PCP - General Family Medicine 08/01/22 documented as of this encounter
--- OUTSIDE RECORDS SUMMARY | 2024-07-17 12:45 | XMS_ITS | Encounter Summary ---
Author Organization [facility] Address [address] [place] [address] Care Team Providers Care Driver/Guide Name Role Phone Bernie Adam MD Primary Care Provider [phone] Encounter Details Date Type Department Care Team (Late st Contact Info) Description 07/05/2024 Telephone [facility] [address] [place] [address] Bibi Ladd MA Social History Tobacco Use Types Packs/Day [...] encounter Miscellaneous Notes * Telephone Encounter - Kathleen Metcalf MA - 07/05/2024 11:34 AM EDT Patient's most recent blood pressure reading was 120/60 as well. * Telephone Encounter - Kathleen Metcalf MA - 07/05/2024 11:32 AM EDT I scheduled pt to be seen on 07/09/2024 at 2PM with Kenia. I also advised pt that if he develops SOB or chest pain to seek immediate medical attention. He is not wearing compression stockings and is not elevating his legs. * Telephone Encounter - Bibi Ladd MA - 07/05/2024 11:04 AM EDT Pt wants to know if Tamsulosin .4 mg would make his feet swell. documented in this encounter Plan of Treatment Upcoming Encounters Date Type Department Care Team (Late st Contact Info) Description 09/03/2024 1:00 PM EDT Procedure Visit [facility] [address] [place] [address] Sher Lou, DPM [address] [place] [address] 09/03/2024 2:00 PM EDT Office Visit [facility] [address] [place] [phone] Kenia Castillo NP [address] [place] [address] documented as of this encounter Visit Diagnoses Not on filedocumented in this encounter Care Teams Driver/Guide Relationship Specialty Start Date End Date Bernie Adam MD [address] [place] [address] PCP - General Family Medicine 08/01/22 documented as of this encounter
--- OUTSIDE RECORDS SUMMARY | 2024-07-17 12:45 | XMS_ITS | Encounter Summary ---
Author Organization [facility] Address [address] [place] [address] Care Team Providers Care Vessel Liner Name Role Phone Bernie Adam MD Primary Care Provider [phone] Bernie Adam MD Unavailable [phone] Bernie Adam MD Unavailable [phone] Reason for Visit * Reason Comments Med Refill Encounter Details Date Type Department Care Team (Late st Contact Info) Description 11/19/2023 Refill [facility] [address] [place] [address] Kenia Castillo NP [address] [place], [place] [phone] Type 2 diabetes mellitus with diabetic peripheral [...] Telephone Encounter - Justina Ryan MA - 11/20/2023 12:51 PM EDT Approving, but needs appt for additional refills. documented in this encounter Plan of Treatment Upcoming Encounters Date Type Department Care Team (Late st Contact Info) Description 09/03/2024 1:00 PM EDT Procedure Visit [facility] [address] [place] [address] Sher Lou, DPM [address] [place] [address] 09/03/2024 2:00 PM EDT Office Visit [facility] [address] [place] [phone] Kenia Castillo NP [address] [place] [facility] [place] [address] documented as of this encounter Visit Diagnoses Diagnosis Type 2 diabetes mellitus with diabetic peripheral angiopathy without gangrene (CMS/HCC) documented in this encounter Care Teams Vessel Liner Relationship Specialty Start Date End Date Bernie Adam MD [address] [facility] [place] [address] PCP - General Family Medicine 08/01/22 Bernie Adam MD [address] [facility] [place] [address] PCP - ACO Reach 06/14/23 03/21/24 Bernie Adam MD [address] [facility] [place] [address] PCP - ACO Reach 03/29/24 05/16/24 documented as of this encounter
--- OUTSIDE RECORDS SUMMARY | 2024-07-17 12:45 | XMS_ITS | Clinical Summary ---
Author Organization [facility] Address [address] [place] [address] Care Team Providers Care Electronic Wirer Name Role Phone Unavailable Primary Care Provider Unavailabl e Social History Tobacco Use Types Packs/Day Years Used Date Smoking Tobacco: Never Assessed Sex and Gender Information Value Date Recorded Sex Assigned at Not on file Gender Identity Not on file Sexual Orientation Not on file Plan of Treatment Not on file
--- OUTSIDE RECORDS SUMMARY | 2024-07-17 12:45 | XMS_ITS | Clinical Summary ---
Author Organization [facility] Address [address] [place] [address] Care Team Providers Care Pharmacy Data Analyst Name Role Phone Jeannine Evangelista CLINICAL SUPPORT SPECIALIST - COREMAKER SUPERVISOR Primary Care P rovider Allergies No known active allergies Medications omeprazole (PRILOSEC) 20 MG delayed release capsule Take 1 capsule by mouth Daily 0 Active allopurinol (ZYLOPRIM) 100 MG tablet Take 1 tablet by mouth daily Active rOPINIRole (REQUIP) 0.25 MG tablet Take 1 tablet by mouth daily Take 1 1/2 daily 1 Active losartan-hydroCHL OROthiazide (HYZAAR) 50-12.5 MG per tabletIndications :Essential hypertension TAKE 1 TABLET DAILY 90 tablet 3 2 Active amitriptyline (ELAVIL) 10 MG tablet Take 1 tablet by mouth nightly Active metoprolol tartrate (LOPRESSOR) 25 MG tabletIndications :AF (paroxysmal atrial fibrillation) (HCC),PAF (paroxysmal atrial fibrillation) (HCC),Paroxysmal atrial fibrillation (HCC),Chronic anticoagulation,S hortness of breath,Essential hypertension Take 1 tablet by mouth 2 times daily 180 tablet 3 5 Active apixaban (ELIQUIS) 5 MG TABS tabletIndications :AF (paroxysmal atrial fibrillation) (HCC),PAF (paroxysmal atrial fibrillation) (HCC),Paroxysmal atrial fibrillation (HCC),Chronic anticoagulation,S hortness of breath,Essential hypertension Take 1 tablet by mouth 2 times daily 180 tablet 3 5 Active amiodarone (CORDARONE) 200 MG tablet Take 1 tablet by mouth daily 90 tablet 3 5 Active Active Problems Problem Noted Date Diagnosed Date PVD (peripheral vascular disease) 08/30/2021 Type 2 diabetes mellitus 08/30/2021 Persistent atrial fibrillation 03/10/2020 Essential hypertension 01/22/2020 Other viral pneumonia 12/18/2019 Paroxysmal atrial fibrillation 12/17/2019 Pneumonia due to COVID-19 virus 12/16/2019 Encounters Date Type Department Care Team Description 07/11/2024 11:00 AM EDT Clinical Support [facility] Part [address] [place] [address] AF (paroxysmal atrial fibrillation) (HCC) (Primary Dx); Chronic anticoagulation; PAF (paroxysmal atrial fibrillation) (HCC) 07/11/2024 Orders Only [facility] Part of [address] [place] [address] Ce Mccormick 07/11/2024 Telephone [facility] Part of [address] [place] [address] Ej Foster MD Other (Swelling /) 07/11/2024 Abstract [facility] Part [address] [place] [address] Bernie Knight MA 05/14/2024 11:20 AM EDT Office Visit [facility] Part [address] [place] [address] Ej Foster MD AF (paroxysmal atrial fibrillation) (HCC) (Primary Dx); Chronic anticoagulation; Essential hypertension; Type 2 diabetes mellitus with diabetic nephropathy, without long-term current use of insulin (HCC); Mixed hyperlipidemia; Obesity, Class III, BMI 40-49.9 (morbid obesity) (HCC) 04/24/2024 Refill [facility] Part of [address] [place] [address] Chowdhury, Marcelle D, CLINICAL SUPPORT SPECIALIST - COREMAKER SUPERVISOR Medication Refill from Last 3 Months Social History Tobacco Use Types Packs/Day Years Used Date Smoking Tobacco: Never Smokeless Tobacco: Never Tobacco Cessation:Counseling Given: Not Answered Alcohol Use Standard Drinks/Week Comments Yes 6 (1 standard drink = 0.6 oz pur e alcohol) occasional Sex and Gender Information Value Date Recorded Sex Assigned at Not on file Legal Sex Male 1:46 PM EDT Gender Identity Not on file Sexual Orientation Not on file Last Filed Vital Signs Vital Sign Reading Time Taken Comments Blood Pressure 132/85 05/14/2024 11:31 AM EDT Pulse 65 05/14/2024 11:31 AM EDT Temperature 36 C (96.8 F) 02/23/2024 12:11 PM EST Respiratory Rate 18 07/11/2024 10:50 AM EDT Oxygen Saturation 95% 05/14/2024 11:31 AM EDT Inhaled Oxygen Concentration - - Weight 142 kg (313 lb) 07/11/2024 10:50 AM EDT Height 182.9 cm (6') 07/11/2024 10:50 AM EDT Body Mass Index 42.45 07/11/2024 10:50 AM EDT Plan of Treatment Upcoming Encounters Date Type Department Care Team (Late st Contact Info) Description 11/18/2024 10:00 AM EDT Office Visit [facility] Part of [address] [address] Ej Foster MD [address] [place] [phone] 6 month Health Maintenance Due Date Last Done Comments Diabetic foot exam 1958 Depression Screen 1960 Diabetic Alb to Cr ratio (uACR) test 1966 Diabetic retinal exam 1966 Hepatitis C screen 1966 Colonoscopy 1993 Colorectal Cancer Screen 1993 FIT/FOBT: Average risk 1993 Fecal-DNA (Cologuard): Average risk 1993 Sigmoidoscopy/CT colonography 1993 Shingles vaccine (2 of 3) 07/17/2012 05/22/2012 A1C test (Diabetic or Prediabetic) 03/10/2021 03/10/2020, 01/22/2020 Lipids 03/10/2021 03/10/2020 GFR test (Diabetes, CKD 3-4, OR last GFR 15-59) 05/04/2023 05/03/2022, 03/10/2020, 01/22/2020 Annual Wellness Visit (Medicare Advantage) 02/14/2024 COVID-19 Vaccine ( season) 2024 11/21/2023, 12/05/2022, 11/01/2021, Additional history exists DTaP/Tdap/Td vaccine (2 - Td or Tdap) 11/28/2028 11/28/2018 Respiratory Syncytial Virus (RSV) or age 60 yrs+ Completed 12/05/2022 Flu vaccine Completed 11/21/2023, 10/14, 11/01/2021, Additional history exists Pneumococcal 50+ years Vaccine Completed 11/21/2023, 12/02/2022, 07/29/2015, Additional history exists Hepatitis A vaccine Aged Out No longe r eligible based on patient's age to complete this topic Hepatitis B vaccine Aged Out No longe r eligible based on patient's age to complete this topic Hib vaccine Aged Out No longer eligi ble based on patient's age to complete this topic Meningococcal (ACWY) vaccine Aged Out No longer eligible based on patient's age to complete this topic Meningococcal B vaccine Aged Out No l onger eligible based on patient's age to complete this topic Polio vaccine Aged Out No longer elig ible based on patient's age to complete this topic Procedures Procedure Name Priority Date/Time Associated Diagnosis Comments EKG 12-LEAD Routine 07/11/2024 AF (paroxysmal atrial fibrillation) (HCC) Chronic anticoagulation PAF (paroxysmal atrial fibrillation) ([facility]) EKG 12-LEAD Routine 05/14/2024 AF (paroxysmal atrial fibrillation) (HCC) Chronic anticoagulation Essential hypertension Type 2 diabetes mellitus with diabetic nephropathy, without long-term current use of insulin (HCC) Mixed hyperlipidemia Obesity, Class III, BMI 40-49.9 (morbid obesity) ([facility]) BASIC METABOLIC PANEL Routine 05/03/2022 12:37 PM EDT Essential hypertension Persistent atrial fibrillation (HCC) Chronic anticoagulation Obesity, Class III, BMI 40-49.9 (morbid obesity) (HCC) Mixed hyperlipidemia History of COVID-19 Type 2 diabetes mellitus with diabetic nephropathy, without long-term current use of insulin (HCC) LIPID PANEL Routine 03/10/2020 12:35 PM EST Persistent atrial fibrillation (HCC) SOB (shortness of breath) Essential hypertension Other specified diabetes mellitus with other specified complication, unspecified whether prison insulin use (HCC) Class 2 obesity with body mass index (BMI) of 36.0 to 36.9 in adult, unspecified obesity type, unspecified whether serious comorbidity present COVID-19 Fluid retention Pain in both lower extremities HEMOGLOBIN A1C Routine 03/10/2020 12:35 PM EST Controlled type 2 diabetes mellitus with hyperglycemia, without long-term current use of insulin (HCC) from Last 3 Months or Most Recently Relevant to Health Maintenance Results * EKG 12 lead (07/11/2024) Only the most recent of2 resultswithin the time period is included. us Ej Foster MD ECG ORDERABLES Final Result * (ABNORMAL) Basic Metabolic Panel (05/03/2022 12:37 PM EDT) Glucose 119(H) 70 - 99 mg/dL 05/03/2022 12:37 PM EDT [facility] BUN 18 8 - 23 mg/dL 05/03/2022 12:37 PM T [facility] Creatinine 0.78 0.70 - 1.20 mg/dL 05/03/2022 12:37 PM EDT [facility] Est, Glom Filt Rate >60 >60 mL/min/1.7 3m2 05/03/2022 12:37 PM T [facility] Comment: These results are not intended for [...] following therapy that affects renal tubular secretion. BUN/Creatinine Ratio 23(H) 9 - 20 05/03/2022 12:37 PM EDT [facility] Calcium 9.1 8.6 - 10.4 mg/dL 05/03/2022 12:37 PM EDT [facility] Sodium 140 135 - 144 mmol/L 05/03/2022 12:37 PM EDT [facility] Potassium 3.9 3.7 - 5.3 mmol/L 05/03/2022 12:37 PM EDT [facility] Chloride 102 98 - 107 mmol/L 05/03/2022 12:37 PM EDT [facility] CO2 27 20 - 31 mmol/L 05/03/2022 12:37 PM EDT [facility] Anion Gap 11 9 - 17 mmol/L 05/03/2022 12:37 PM EDT [facility] BLOOD SPECIMEN / Unknown 05/03/2022 12:37 PM EDT 05/03/2022 12:38 PM EDT us Ej Foster MD CHEMISTRY ORDERABLES Final Resu lt Performing Organization Address [facility]/ZIP Co de Phone Number [facility] [address] [place], [place] [id number] [phone] * Hemoglobin A1C (03/10/2020 12:35 PM EST) Hemoglobin A1C 5.4 4.0 - 6.0 % 03/10/2020 12:35 PM EST [employer] Estimated Avg Glucose 108 mg/dL 03/10/2020 12:35 PM EST [employer] Comment: The ADA and AACC recommend providing the estimated average glucose result to permit better patient understanding of their HBA1c result. BLOOD SPECIMEN / Unknown 03/10/2020 12:35 PM EST 03/10/2020 12:36 PM EST us Ej Foster MD CHEMISTRY ORDERABLES Final Resu lt [facility] [address] [id number], [facility] [phone] [facility] [address] [place] [address], [facility] [phone] * Lipid Panel (03/10/2020 12:35 PM EST) Cholesterol 162 <200 mg/dL 03/10/2020 12:35 PM EST [employer] Comment: Cholesterol Guidelines: <200 Desirable 200-240 Borderline >240 Undesirable HDL 41 >40 mg/dL 03/10/2020 12:35 PM EST [employer] Comment: HDL Guidelines: <40 Undesirable 40-59 Borderline >59 Desirable LDL Cholesterol 102 0 - 130 mg/dL 03/10/2020 12:35 PM EST [employer] Comment: LDL Guidelines: <100 Desirable 100-129 Near to/above Desirable 130-159 Borderline >159 Undesirable Direct (measured) LDL and calculated LDL are not interchangeable tests. Chol/HDL Ratio 4.0 <5 03/10/2020 12:35 PM EST [employer] Comment: Triglycerides 97 <150 mg/dL 03/10/2020 12:35 PM EST [employer] Comment: Triglyceride Guidelines: <150 Desirable 150-199 Borderline 200-499 High >499 Very high Based on AHA Guidelines for fasting triglyceride, November 2011. VLDL NOT REPORTED 1 - 30 mg/dL 03/10/2020 12:35 PM EST [employer] BLOOD SPECIMEN / Unknown 03/10/2020 12:35 PM EST 03/10/2020 12:36 PM EST Ej Foster MD CHEMISTRY ORDERABLES Final Resu lt [facility] [address] [place] [address], [facility] [phone] [place] [address], [facility] [phone] from Last 3 Months or Most Recently Relevant to Health Maintenance Insurance [employer] [facility] DUAL BENEFITS Advance Directives * Full Code (Latest Code Status on File) Date Activated Date Inactivated Comments 02/12/2020 7:58 AM 02/12/2020 11:52 AM Care Teams Pharmacy Data Analyst Relationship Specialty Start Date End Date Jeannine Evangelista APRN - SHAILESH [address] [place] [address] PCP - General Nurse Practitioner, Family 01/30/20
--- OUTSIDE RECORDS SUMMARY | 2024-07-17 12:45 | XMS_ITS | Encounter Summary ---
Author Organization [facility] Address [address] [place] [address] Care Team Providers Care Crop Nutrition Scientist Name Role Phone Bernie Adam MD Unavailable [phone] Bernie Adam MD Primary Care Provider [phone] Bernie Adam MD Unavailable [phone] Bernie Adam MD Unavailable [phone] Encounter Details Date Type Department Care Team (Late st Contact Info) Description 12/02/2022 Abstract [facility] [address] [place] [address] Kenia Castillo NP [address] [place], [place] [phone] Social History Tobacco Use Types Packs/Day Years [...] on file documented as of this encounter Functional Status * Over the past 2 weeks, how often have you been bothered by any of the following problems? Question Answer Date of Assessment Author Little interest or pleasure in doing things Not at all 12/02/2022 1:00 PM EDMaricruz Ho MA Feeling down, depressed, or hopeless Not at all 12/02/2022 1:00 PM EDT Maricruz Lopez MA Patient Health Questionnaire-2 Score 0 12/02/2022 1:00 PM EDT Missy Lopez MA * Question Answer Date of Assessment Author Trouble falling or staying asleep, or sleeping too much Nearly every day 12/02/2022 1:00 PM EDT Maricruz Lopez MA Feeling tired or having little energy Nearly every day 12/02/2022 1:00 PM EDT Maricruz Lopez MA Poor appetite or overeating Not at all 12/02/2022 1:00 PM WILLIET Maricruz Lopez MA Feeling bad about yourself - or that you are a failure or have let yourself or your family down Not at all 12/02/2022 1:00 PM WILLIET Maricruz Lopez MA Trouble concentrating on things, such as reading the newspaper or watching television Not at all 12/02/2022 1:00 PM EDT Maricruz Lopez MA Moving or speaking so slowly that other people could have noticed? Or the opposite - being so fidgety or restless that you have been moving around a lot more than usual. Not at all 12/02/2022 1:00 PM EDT Maricruz Lopez MA documented as of this encounter Plan of Treatment Upcoming Encounters Date Type Department Care Team (Late st Contact Info) Description 09/03/2024 1:00 PM EDT Procedure Visit [facility] [address] [place] [phone] Sher Lou DPM [address] [place] [address] 09/03/2024 2:00 PM EDT Office Visit [facility] [address] [place] [phone] Kenia Castillo NP [address] [place] [address] documented as of this encounter Visit Diagnoses Not on filedocumented in this encounter Care Teams Crop Nutrition Scientist Relationship Specialty Start Date End Date Bernie Adam MD [address] [facility] [address] [place], [place] [id number] PCP - ACO Reach 07/07/22 04/13/23 Bernie Adam MD [address] [facility] [place] [address] PCP - General Family Medicine 08/01/22 Bernie Adam MD [address] [facility] [address] [place], [place] [id number] PCP - ACO Reach 06/14/23 03/21/24 Bernie Adam MD [address] [facility] [address] [place], [place] [id number] PCP - ACO Reach 03/29/24 05/16/24 documented as of this encounter
--- NOTE | 2024-07-17 13:04 | PM.CN ---
Consult Note: HPI Data of Consult Patient: known to practice within the last 3 years Requesting Physician: Kelley Richard NP Primary Care Provider: Non-Staff Physician, Consult Narrative Reason for consult: left hip pain Narrative: 72yom who presents for assessment. continues to have moderate to severe left hip and left leg pain. imaging reviewed, which is significant for left-sided foraminal stenosis at l4-5, l5-s1. continues in a series of provider directed home exercises >6 weeks, without lasting relief. uses tylenol primarily. cannot take nsaids due to blood thinner. denies adverse med side effects. previously underwent left L4-5 L5-S1 TFESI with >50% improvement and left SIJ injection with >50% improvement greater than 3 months. cc:: CC: Kelley Richard NP Review of Systems ROS Status of ROS 10 or more systems reviewed and unremarkable except as noted in history and below Musculoskeletal Reports: back pain and joint pain; Denies: extremity pain PFSH PFS Medical History (Updated 03/14/24 @ 13:57 by Kelley Richard NP) Diabetes ?E11.9 - Type 2 diabetes mellitus without complications (ICD-10) High cholesterol ?E78.00 - Pure hypercholesterolemia, unspecified (ICD-10) Atrial fibrillation, chronic ?I48.20 - Chronic atrial fibrillation, unspecified (ICD-10) HTN (hypertension) ?I10 - Essential (primary) hypertension (ICD-10) Surgical History History of knee surgery ?Z98.890 - Other specified postprocedural states (ICD-10) History of back surgery ?Z98.890 - Other specified postprocedural states (ICD-10) Meds Home Medications and Allergies Home Medications ?Medication ?Instructions ?Recorded ?Confirmed ?Type allopurinol 100 mg tablet 100 mg PO DAILY 06/22/23 04/01/24 History apixaban 5 mg tablet (Eliquis) 5 mg PO BID 06/22/23 04/01/24 History ascorbic acid (vitamin C) 500 mg 500 mg PO DAILY 06/22/23 04/01/24 History chewable tablet atorvastatin 10 mg tablet 10 mg PO DAILY 06/22/23 04/01/24 History cholecalciferol (vitamin D3) 25 1,000 unit PO DAILY 06/22/23 04/01/24 History mcg (1,000 unit) tablet (Vitamin D3) losartan 50 mg-hydrochlorothiazide 1 tab PO DAILY 06/22/23 04/01/24 History 12.5 mg tablet metformin 500 mg tablet 500 mg PO BID 06/22/23 04/01/24 History metoprolol tartrate 25 mg tablet 12.5 mg PO BID 06/22/23 04/01/24 History omeprazole 20 mg capsule,delayed 20 mg PO DAILY 06/22/23 04/01/24 History release ropinirole 1 mg tablet 1.5 mg PO DAILY 06/22/23 04/01/24 History tamsulosin 0.4 mg capsule 0.4 mg PO DAILY 06/22/23 04/01/24 History baclofen 10 mg tablet 10 mg PO TID #90 tabs 10/04/23 04/01/24 Rx gabapentin 300 mg capsule 300 mg PO Q12H 02/27/24 04/01/24 History gabapentin 600 mg tablet 600 mg PO BID #60 tabs 04/08/24 Rx hydrocodone 5 mg-acetaminophen 325 1 tab PO BID PRN pain #14 tabs 06/19/24 Rx mg tablet Allergies Allergy/AdvReac Type Severity Reaction Status Date / Time No Known Drug Allergies Allergy Verified 04/01/24 08:43 Exam Constitutional Documenting provider has reviewed patient's vital signs: yes Common normals: no apparent distress, oriented x3, healthy appearing, alert and well nourished General appearance: cooperative [facility] Common normals: normocephalic, hearing grossly normal bilaterally and moist oral mucous membranes Head and scalp: normocephalic Eye Common normals: PERRL Pupil: PERRL Neck & C-Spine Common normals: full ROM General: normal visual inspection Chest Common normals: inspection of chest normal Respiratory Common normals: normal respiratory effort, no retractions and no use of accessory muscles Back & Pelvis Lumbar spine/lower back: ROM limited, pain with ROM, lumbar spinal tenderness, straight leg raise positive right and straight leg raise positive left Sacroiliac joints: SI joint(s) abnormal Other: positive left alise(patricks), gaenslens, thigh thrust, compression test decreased sensation left L4,5,S1 strength 4/5 in BLE Neuro Common normals: oriented x3 Sensorium/orientation: alert Motor exam: strength 5/5 throughout and no movement abnormalities noted Psych Common normals: mental status grossly normal, thought process normal, cooperative, affect normal, speech normal and activity/motor behavior normal Speech: normal speech Thought process: normal thought process Results Additional Findings Additional findings: If on a controlled substance or opioids, I have checked an [place]AR[place] report on this patient and there are no aberrancies noted in the prescribing history.??If on a controlled substance or opioid a drug screen was completed and reviewed within the last year, and if there has not been a drug screen completed we ordered one today to monitor higher risk, state monitored pain medication use. As part of providing excellent, safe, comprehensive care, the following was completed at our patient's visit: 1. A medication reconciliation and review to ensure accurate knowledge of current/active medications, including asking our patients to inform us about any [id number] medications or herbal remedies/nutritional supplements/alternative remedies. 2. A review to specifically ensure our patients have had annual screening for screening for depression, screening for tobacco use, and screening for unhealthy alcohol use. For concerning screenings had a discussion with the patient, provided patient education, and recommended follow-up with primary care provider when appropriate. If patient noted with a risk of falling, they received education on strength, gait, and balance training to prevent future risk of falling. Portions of this note may have been carried over from the previous visit and updated as appropriate. Please note this office utilizes paper charting in addition to the electronic medical record. A list of current medications, vitals, and PMH is available there as the clinical staff outside of myself do not have access to [employer] charting during the clinic day operations. As part of providing quality comprehensive care the current medications, vitals, and PMH were reviewed in the paper chart. Assessment and Plan Assessment and Plan (1) Lumbar stenosis with neurogenic claudication: (2) Sacroiliitis: Plan repeat left L4-5 L5-S1 TFESI under fluoroscopy, previous injection provided >50% improvement greater than 3 months start baclofen 5-10mg HS PRN pain/spasms continue gabapentin 600mg BID continue hydrocodone 5-325mg BID PRN moderate to severe pain f/u 2 weeks after injection
== END 2024-07-17 12:40 | disposition home or self-care (01) ==
PROVIDERS: Visit Provider Nurse Practitioner
DX: M48.062 Spinal stenosis, lumbar region with neurogenic claudication (principal); M46.1 Sacroiliitis, not elsewhere classified
CPT/HCPCS: G0463

== ENCOUNTER 2024-08-05 08:02 | Day surgery (SDC) | payer OTHER, SELFPAY ==
--- OUTSIDE RECORDS SUMMARY | 2024-06-20 09:30 | XMS_ITS ---
Author Organization [facility] vices Address [address] [place], [place] [address], [place] [id number] Care Team Providers Care Landing Man Name Role Phone Soo Moreira [phone] REASON FOR VISIT Denture Adjustment Social History Sex Assigned At : Social History Observation Description Sex Assigned At Male Encounters Encounter Location Date Provider Diagnosis [facility] [address] [place], [place] [id number] 06/20/2024 Soo Moreira Plan Of Treatment No Information Progress Notes * Yang CARDDOB:[birth year] (73 yo M)Acc No.[id number]:06/20/2024 Patient: Yang CISNEROS Provider: Elysia Moreira DMD :1950 A ge:73 Y S ex:Male Date:06/20/2024 [facility] Subjective: * Chief Complaints: * 1 . Denture Adjustment. * Medical History: Objective: * Vitals: Assessment: Plan: * Treatment: * Billing Information: * Visit Code: * Procedure Codes: * Electronic signature of Sanjuanita Moreira DMD on 08/05/2024 at 08:06 AM EDT Sign off status: Pending * Provider: Elysia Moreira DMD Date: 06/20/2024 Generated for Nina borrero/Wayne/eTdamiritting on: 08/05/2024 08:06 AM EDT
--- OUTSIDE RECORDS SUMMARY | 2024-08-05 08:05 | XMS_ITS | Encounter Summary ---
Author Organization [facility] Address [address] [place] [address] Care Team Providers Care Dump Worker Name Role Phone EvangelistaJeannine levin RAYMOND MILL OPERATOR - GYRO MECHANIC Primary Care P rovider Reason for Visit * Reason Comments Medication Refill Encounter Details Date Type Department Care Team (Late Contact Info) Description 01/20/2021 Refill [facility] [address] [address] Ej Foster MD [address] [place] [address] [place] [address] Medication Refill Social History Tobacco Use Types [...] Description 11/18/2024 10:00 AM EDT Office Visit [facility] [address] [address] Ej Foster MD [address] [place] [address] [place] [address] 6 month documented as of this encounter Visit Diagnoses Not on filedocumented in this encounter Care Teams Dump Worker Relationship Specialty Start Date End Date Jeannine Evangelista APRN - GYRO MECHANIC [address] [place] [address] PCP - General Nurse Practitioner, Family 01/30/20 documented as of this encounter
--- OUTSIDE RECORDS SUMMARY | 2024-08-05 08:05 | XMS_ITS | Clinical Summary ---
Author Organization [employer] Address [id number] [address] [place] [address] Care Team Providers Care Blue Split Trimmer Name Role Phone Jeannine Evangelista BUSINESS DEPARTMENT CHAIR-SEWING MACHINE ATTACHMENT TESTER Primary Care Pro vider Allergies No known [...] 12:09 PM 12/29/2019 7:27 PM Care Teams Blue Split Trimmer Relationship Specialty Start Date End Date Jeannine Evangelista, BUSINESS DEPARTMENT CHAIR-SEWING MACHINE ATTACHMENT TESTER [address] [place] [address] PCP - General Internal Medicine 12/17/19
--- OUTSIDE RECORDS SUMMARY | 2024-08-05 08:05 | XMS_ITS | Encounter Summary ---
Author Organization [facility] Address [address] [place] [address] Care Team Providers Care Plant Technician Name Role Phone Bernie Adam MD Primary Care Provider [phone] Encounter Details Date Type Department Care Team (Late st Contact Info) Description 07/23/2024 Telephone [facility] [address] [place] [address] Bernie Adam MD [address] [place] [address] Social History Tobacco Use Types [...] encounter Miscellaneous Notes * Telephone Encounter - Doreen Gary - 07/23/2024 2:09 PM EDT Received as voicemail: Yeah, my name is Quentin or Ching. My birthday is a 7I am calling about the blood test that I had taken yesterday. Why did you probably find out about the results or what the drLeelee say about them? My phone number is [phone] would like to have a call back, please, thank you. documented in this encounter Plan of Treatment Upcoming Encounters Date Type Department Care Team (Late st Contact Info) Description 09/03/2024 1:00 PM EDT Procedure [facility] [address] [facility] [place] [address] Sher Lou, DPM [address] [place] [address] 09/03/2024 2:00 PM EDT Office Visit [facility] [address] [place] [phone] Kenia Castillo NP [address] [place] [address] documented as of this encounter Visit Diagnoses Not on filedocumented in this encounter Care Teams Plant Technician Relationship Specialty Start Date End Date Bernie Adam MD [address] [place] [address] PCP - General Family Medicine 08/01/22 documented as of this encounter
--- OUTSIDE RECORDS SUMMARY | 2024-08-05 08:05 | XMS_ITS | Encounter Summary ---
Author Organization [facility] Address [address] [place] [address] Care Team Providers Care Naval Aircrewman Helicopter Name Role Phone Bernie Adam MD Primary Care Provider [phone] Encounter Details Date Type Department Care Team (Late st Contact Info) Description 07/23/2024 Results Follow-Up [facility] [address] [place] [address] Kenia Castillo NP [address] [place], [place] [phone] Social History Tobacco Use Types Packs/Day Years [...] * Telephone Encounter - Doreen Gary - 07/24/2024 9:37 AM EDT Patient called back and message was given. He understood and had no further questions. * Telephone Encounter - Amy Perez MA - 07/23/2024 7:22 PM EDT L/m letting pt know of message. * Telephone Encounter - Amy Perez MA - 07/23/2024 7:22 PM EDT ----- Message from Kenia Castillo sent at 07/23/2024 6:13 PM EDT ----- Renal function back to baseline, he needs to avoid NSAIDS ----- Message ----- From: [facility] Results In Sent: 07/23/2024 6:24 AM EDT To: Kenia Castillo NP documented in this encounter Plan of Treatment Upcoming Encounters Date Type Department Care Team (Late st Contact Info) Description 09/03/2024 1:00 PM EDT Procedure Visit [facility] [address] [place] [phone] Sher Lou DPM [address] [place] [address] 09/03/2024 2:00 PM EDT Office Visit [facility] [address] [place] [phone] Kenia Castillo NP [address] [place] [address] documented as of this encounter Visit Diagnoses Not on filedocumented in this encounter Care Teams Naval Aircrewman Helicopter Relationship Specialty Start Date End Date Bernie Adam MD [address] [place] [address] PCP - General Family Medicine 08/01/22 documented as of this encounter
--- OUTSIDE RECORDS SUMMARY | 2024-08-05 08:06 | XMS_ITS | Encounter Summary ---
Author Organization [facility] Address [address] [place] [address] Care Team Providers Care Associate Automation Engineer Name Role Phone Bernie Adam MD Primary Care Provider [phone] Encounter Details Date Type Department Care Team (Late Contact Info) Description 07/10/2024 Orders Only [facility] [address] [place] [address] Bernie Dunham MA [address] [place], [place] [phone] Localized edema (Primary Dx) Social History Tobacco [...] EDT Procedure Visit [facility] [address] [place] [phone] Sher Lou DPM [address] [place] [address] 09/03/2024 2:00 PM EDT Office Visit [facility] [address] [place] [phone] Kenia Castillo NP [address] [place] [address] Scheduled Orders Name Type Priority Associated Diagnoses Orde r Schedule ECG 12 lead ECG Routine Localized edema Expected: 07/10/2024 (Approximate), Expires: 07/10/2025 documented as of this encounter Visit Diagnoses Diagnosis Localized edema- Primary Edema documented in this encounter Care Teams Associate Automation Engineer Relationship Specialty Start Date End Date Bernie Adam MD [address] [place], [place] [phone] PCP - General Family Medicine 08/01/22 documented as of this encounter
--- OUTSIDE RECORDS SUMMARY | 2024-08-05 08:06 | XMS_ITS | Encounter Summary ---
Author Organization [facility] Address [address] [place] [address] Care Team Providers Care Security Officers And Guards Name Role Phone Bernie Adam MD Primary Care Provider [phone] Encounter Details Date Type Department Care Team (Late Contact Info) Description 07/22/2024 Orders Only [facility] [address] [place] [address] Kenia Castillo NP [address] [place], [place] [phone] Decreased renal function Social History Tobacco Use Types Packs/Day Years [...] EDT Procedure Visit [facility] [address] [place] [phone] Sher Lou DPM [address] [place] [address] 09/03/2024 2:00 PM EDT Office Visit [facility] [address] [place] [address] Kenia Castillo NP [address] [place], [place] [phone] documented as of this encounter Procedures Procedure Name Priority Date/Time Associated Diagnosis Comments COMPREHENSIVE METABOLIC PANEL Routine 07/22/2024 10:57 AM EDT Decreased renal function documented in this encounter Results * (ABNORMAL) Comprehensive metabolic panel (07/22/2024 10:57 AM EDT) Glucose 109(H) 65 - 99 mg/dL [facility] Comment: Fasting reference interval For someone without known diabetes, a glucose value between 100 and 125 mg/dL is consistent with prediabetes and should be confirmed with a follow-up test. BUN 18 7 - 25 mg/dL [facility] Creatinine 0.84 0.70 - 1.28 mg/dL [facility] EGFR 91 > OR = 60 mL/min/1. 73m2 [facility] BUN/CREATININE RATIO SEE NOTE: 6 - 22 (calc) [facility] Comment: Not Reported: BUN and Creatinine are within reference range. Sodium 140 135 - 146 mmol/L [facility] Potassium, Bld 4.0 3.5 - 5.3 mmol/L [facility] Chloride 100 98 - 110 mmol/L [facility] Carbon Dioxide 29 20 - 32 mmol/L [facility] Calcium 9.0 8.6 - 10.3 mg/dL [facility] PROTEIN, TOTAL 6.8 6.1 - 8.1 g/dL [facility] ALBUMIN 4.4 3.6 - 5.1 g/dL [facility] GLOBULIN 2.4 1.9 - 3.7 g/dL (calc) [facility] ALBUMIN/GLOBULIN RATIO 1.8 1.0 - 2.5 (calc) [facility] BILIRUBIN, TOTAL 0.7 0.2 - 1.2 mg/dL [facility] ALKALINE PHOSPHATASE 76 35 - 144 U/L [facility] AST 19 10 - 35 U/L [facility] ALT 16 9 - 46 U/L [facility] Blood Venous blood specimen / Unknown 07/22/2024 10:57 AM EDT 07/22/2024 10:57 AM EDT Narrative Resulting Agency Comment Performing Organization Information Site ID: QPT Name: [facility] Address: [address] [place] [address], [address] [place] [phone] Director: Curtis Lyons MD us Kenia Castillo GRAIN MIXER LAB BLOOD ORDERABLES Final Resu lt [facility] documented in this encounter Visit Diagnoses Diagnosis Decreased renal function documented in this encounter Care Teams Security Officers And Guards Relationship Specialty Start Date End Date Bernie Adam MD [address] [place] [address] PCP - General Family Medicine 08/01/22 documented as of this encounter
--- OUTSIDE RECORDS SUMMARY | 2024-08-05 08:06 | XMS_ITS | Encounter Summary ---
Author Organization [facility] Address [address] [place] [address] Care Team Providers Care Solar Process Engineer Name Role Phone Bernie Adam MD Unavailable [phone] Bernie Adam MD Primary Care Provider [phone] Bernie Adam MD Unavailable [phone] Bernie Adam MD Unavailable [phone] Encounter Details Date Type Department Care Team (Late st Contact Info) Description 12/02/2022 Abstract [facility] [address] [place] [address] Kenia Castillo NP [address] [place], [place] [phone] Social History Tobacco Use Types Packs/Day Years [...] Procedure Visit [facility] [address] [place] [phone] Sher Lou DPM [address] [place] [address] 09/03/2024 2:00 PM EDT Office Visit [facility] [address] [place] [phone] Kenia Castillo NP [address] [place] [address] documented as of this encounter Visit Diagnoses Not on filedocumented in this encounter Care Teams Solar Process Engineer Relationship Specialty Start Date End Date Bernie Adam MD [address] [facility] [address] [place], [place] [phone] PCP - ACO Reach 07/07/22 04/13/23 Bernie Adam MD [address] [facility] [place] [address] PCP - General Family Medicine 08/01/22 Bernie Adam MD [address] [facility] [address] [place], [place] [phone] PCP - ACO Reach 06/14/23 03/21/24 Bernie Adam MD [address] [facility] [address] [place], [place] [phone] PCP - ACO Reach 03/29/24 05/16/24 documented as of this encounter
--- OUTSIDE RECORDS SUMMARY | 2024-08-05 08:06 | XMS_ITS | Clinical Summary ---
Author Organization [facility] Address [address] [place] [address] Care Team Providers Care Shoe Dyer Name Role Phone Bernie Adam MD Primary Care Provider [phone] Allergies No known active allergies Medications VITAMIN [...] metoprolol tartrate (Lopressor) 50 MG tabletIndications :Primary hypertension,Paro xysmal atrial fibrillation (HCC) Take 1 tablet (50 mg) by mouth in the morning and 1 tablet (50 mg) before bedtime. 180 tablet 1 07/10/19 25 Active metFORMIN (Glucophage) 500 MG tabletIndications :Type 2 diabetes mellitus with diabetic peripheral angiopathy without gangrene (HCC) Take 1 tablet (500 mg) by mouth in the morning and 1 tablet (500 mg) in the evening. Take with meals. 180 tablet 1 07/10/19 25 Active losartan-hydroCHL OROthiazide (Hyzaar) 50-12.5 MG tabletIndications :Primary hypertension Take 1 tablet by mouth in the morning. 90 tablet 1 07/10/19 25 Active atorvastatin (Lipitor) 10 MG tabletIndications :Other hyperlipidemia Take 1 tablet (10 mg) by mouth in the morning. 90 tablet 3 07/10/19 25 Active apixaban (Eliquis) 5 MG tabletIndications :Paroxysmal atrial fibrillation (HCC) Take 1 tablet (5 mg) by mouth [...] 1 (one) time per week 2 mL 1 07/10/19 25 Active amitriptyline (Elavil) 10 MG tabletIndications :Insomnia, unspecified type,Lumbar radiculopathy Take 1 tablet (10 mg) by mouth at bedtime 90 tablet 07/18/19 24 025 Discontinued(Re order) apixaban (Eliquis) 5 MG tabletIndications :Paroxysmal atrial fibrillation (HCC) TAKE 1 TABLET IN THE MORNING AND 1 TABLET BEFORE BEDTIME 180 tablet 1 10/24/19 24 025 Discontinued atorvastatin (Lipitor) 10 MG tabletIndications :Other hyperlipidemia TAKE 1 TABLET IN THE MORNING 90 tablet 3 12/13/19 24 025 Discontinued(Re order) rOPINIRole (Requip) 1 MG tabletIndications :Restless legs syndrome Take 1 tablet (1 mg) by mouth at bedtime 90 tablet 1 01/31/20 025 Discontinued(Re order) metFORMIN (Glucophage) 500 MG tabletIndications :Type 2 diabetes mellitus with diabetic peripheral angiopathy without gangrene (HCC) TAKE 1 TABLET IN THE MORNING AND [...] OROthiazide (Hyzaar) 50-12.5 MG tabletIndications :Primary hypertension TAKE 1 TABLET IN THE MORNING 90 tablet 1 03/22/19 025 Discontinued(Re order) omeprazole (PriLOSEC) [address] capsuleIndication s:Gastroesophagea l reflux disease without esophagitis TAKE 1 CAPSULE EVERY MORNING BEFORE A MEAL 90 capsule 3 06/11/19 025 Discontinued(Re order) apixaban (Eliquis) 5 MG tabletIndications :Paroxysmal atrial fibrillation (HCC) TAKE 1 TABLET IN THE MORNING AND [...] joint present 03/03/2021 Vitamin D deficiency 05/14/2020 [id number] condition 04/27/2020 COVID-19 04/27/2020 Type 2 diabetes mellitus without complication Paroxysmal atrial fibrillation 12/17/2019 Impaired fasting glucose 12/12/2018 Peripheral edema 11/28/2018 Tinea pedis 11/28/2018 Psoriasis 06/26/2017 Chronic gouty arthritis 07/29/2015 Polio ([facility]) 07/29/2015 Resolved Problems Problem Noted Date Diagnosed Date Resolved Date Other viral pneumonia 12/18/20192023 Pneumonia due to COVID-19 virus 12/16/2019 09/19/2023 Pure hyperglyceridemia 12/12/201810/04 Sinus pain 12/12/2018 09/19/2023 Encounters Date Type Department Care Team Description 07/23/2024 Results Follow-Up [facility] [address] [place] [address] Kenia Castillo NP 07/23/2024 Telephone [facility] [address] [place] [address] Bernie Adam MD 07/22/2024 Orders Only [facility] [address] [place] [address] Kenia Castillo NP Decreased renal function 07/10/2024 Orders Only [facility] [address] [place] [phone] Bernie Dunham MA Localized edema (Primary Dx) 07/09/2024 2:45 PM EDT Ancillary Procedure [facility]TR[facility] [address] [facility] [address] [place] [address] Localized edema 07/09/2024 2:00 PM EDT Office Visit [facility] [address] [facility] [place] [address] Kenia Castillo NP Localized edema (Primary Dx); Restless legs syndrome; POOL (obstructive sleep apnea); Polio (HHS-HCC); Primary hypertension ; Benign prostatic hyperplasia with nocturia; Gastroesophageal reflux disease without esophagitis; Type 2 diabetes mellitus with diabetic peripheral angiopathy without gangrene (HCC); Other hyperlipidemia ; Paroxysmal atrial fibrillation (HCC); Insomnia, unspecified type; Lumbar radiculopathy; 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 07/09/2024 1:00 PM EDT Ancillary Procedure [facility] RADIOLOGY [address] [place] [address] [place] [phone] Localized edema 07/09/2024 Results Follow-Up [facility] [address] [facility] [place] [address] Kenia Castillo NP 07/09/2024 Telephone [facility] [address] [facility] [place] [address] Kenia Castillo NP 07/09/2024 Bamboo flowsheet [facility] [address] [facility] [place] [address] Kenia Castillo NP 07/09/2024 Travel 07/08/2024 Refill [facility] [address] [facility] [place] [address] Kenia Castillo NP Paroxysmal atrial fibrillation (HCC) 07/05/2024 Telephone [facility] [address] [facility] [place] [address] Bibi Ladd MA 06/28/2024 Telephone [facility] [address] [facility] [place] [address] Kenia Castillo NP 06/18/2024 Telephone [facility] [address] [facility] [place] [phone] Bibi Ladd MA 06/10/2024 Refill [facility] [place] [address] [facility] [place] [address] Kenia Castillo NP Gastroesophageal reflux disease without esophagitis 05/23/2024 Orders Only [facility] [place] 666[address] [facility] [place] [address] Bernie Adam MD Acute cough (Primary Dx) 05/23/2024 Telephone [address] [address] [place] [address] Bernie Adam MD 05/20/2024 2:00 PM EDT Office Visit [facility] [place] [address] [facility] [place] [address] Kenia Castillo NP Type 2 diabetes mellitus without complication, without long-term current use of insulin (HCC) (Primary Dx); Acute bacterial conjunctivitis of both eyes; Non-recurrent acute suppurative otitis media of left ear without spontaneous rupture of tympanic membrane 05/20/2024 Bamboo flowsheet [facility] [place] [address] [place] [facility] [place] [address] Kenia Castillo NP 05/20/2024 Travel from Last 3 Months Immunizations Immunization [...] cm (5' 11.5 ) 07/09/2024 1:53 PM E DT Body Mass Index 43.51 07/09/2024 1:53 PM EDT Plan of Treatment Upcoming Encounters Date Type Department Care Team (Late st Contact Info) Description 09/03/2024 1:00 PM EDT Procedure Visit [facility] [address] [place] [address] Sher Lou DPM [address] [place] [address] 09/03/2024 2:00 PM EDT Office Visit [facility] [address] [place] [phone] Kenia Castillo NP [address] [place] [address] Health Maintenance Due Date Last Done Comments CT Colonography 1948 Colonoscopy 1948 Colorectal Cancer Screening 1948 FIT-DNA 1948 FIT 1948 FOBT 1948 Sigmoidoscopy 1948 Diabetes: Retinopathy Screening 12/02/2022 Diabetes: Hemoglobin A1C 08/19/2024 025, 02/20/2024, 09/19/2023, Additional history exists Diabetes: [...] 07/22/2024 10:57 AM EDT Decreased renal function XR CHEST 2 VIEWS STAT 07/09/2024 3:27 [...] complication, without long-term current use of insulin (HCC) MICROALBUMIN / CREATININE URINE RATIO Routine 02/20/2024 2:47 PM EST Encounter for wellness examination Type 2 diabetes mellitus with other specified complication, without long-term current use of insulin (HCC) COLOR FUNDUS PHOTOGRAPHY - OU - BOTH EYES Routine 12/02/2020 12:00 PM EDT Type 2 diabetes mellitus without complications (HCC) Encounter for screening for eye and ear disorders from Last 3 Months or Most Recently Relevant to Health Maintenance Results * (ABNORMAL) Comprehensive metabolic panel (07/22/2024 10:57 AM EDT) Only the most recent of2 resultswithin the time period is included. Glucose 109(H) 65 - 99 mg/dL [facility] [...] Performing Organization Information Site ID: QPT Name: [facility] Address: [address] [place] [address], [address] [place] [phone] Director: Curtis Lyons MD Kenia Castillo NP LAB BLOOD ORDERABLES Final Resu lt [facility] * XR chest 2 views (07/09/2024 3:27 [...] approved by the interpreting radiologist. Procedure Note Kristine Meneses MD - 07/09/2024 Exam: XR CHEST 2 VIEWS Reason for exam: Bilateral leg swelling, no chest complaints Prior comparative studies: None Findings: No consolidation or effusion is apparent. Pleural space isclear. Heart and mediastinum are unremarkable. IMPRESSION: 1. No acute abnormality identified. Dictated on: 07/09/2024 2:02 PM This report has been electronically signed and approved by theinterpreting radiologist. us Kenia Castillo NP IMG XR PROCEDURES Final [...] II, MD, PHD at 10-Jul-2024 09:19:12 AM [facility] Procedure Note Tomer Padgett MD - [...] TOMER PADGETT II, MD, PHD 09:19:12 AM [facility] Kenia Castillo NP IMG US PROCEDURES Final Result * TSH W/REFLEX TO FT4 (07/09/2024 2:25 PM EDT) [facility] TSH W/REFLEX TO FT4 3.37 0.40 - 4.50 mIU/L [facility] 07/09/2024 2:25 PM EDT 07/09/2024 2:25 PM EDT Narrative Resulting Agency Comment Performing Organization Information Site ID: QPT Name: [facility] Address: [address] [place] [address], [address] [place] [phone] Director: Curtis Lyons MD Kenia Castillo NP LAB BLOOD ORDERABLES Final Resu lt [facility] * (ABNORMAL) CBC and differential (07/09/2024 2:25 PM EDT) [facility] WHITE BLOOD CELL COUNT 5.4 3.8 - [...] Performing Organization Information Site ID: QPT Name: [facility] Address: [address] [place] [address], [address] [place] [phone] Director: Curtis Lyons MD Kenia Castillo NP LAB BLOOD ORDERABLES Final Resu lt Performing Organization Address [facility] de Phone Number [facility] * B-type natriuretic [...] Performing Organization Information Site ID: QPT Name: [facility] Address: [address] [place] [address], [address] [place] [phone] Director: Curtis Lyons MD Kenia Castillo NP LAB BLOOD ORDERABLES Final Resu lt Performing Organization Address [facility] Co de Phone Number [facility] * (ABNORMAL) POCT Glycated hemoglobin, total [...] Performing Organization Information Site ID: QPT Name: [facility] Address: [address] [place] [address], [address] [place] [phone] Director: Curtis Lyons MD Kenia Castillo NP LAB URINE ORDERABLES Final Resu lt [facility] * Color Fundus Photography - OU - Both Eyes (12/02/2020 12:00 PM EDT) Anatomical Region Laterality Modality Head Fundus Photograp hy 12/02/2020 12:0 0 PM EDT Narrative 12/02/2020 12:00 PM EDT PERFORMED AT [facility] LOCATION:[id number] [facility] Procedure Note CONVERSION, GENERIC - 06/29/2022 PERFORMED AT [facility] LOCATION:[id number] [facility] Jeannine Evangelista OUTBOUND TELEMARKETING REPRESENTATIVE OPHTH PHOTOGRAPHY Final Result from Last 3 Months or Most Recently Relevant to Health Maintenance Insurance [employer] MEDICARE Care Teams Shoe Dyer Relationship Specialty Start Date End Date Bernie Adam MD [address] [place] [address] PCP - General Family Medicine 08/01/22
--- OUTSIDE RECORDS SUMMARY | 2024-08-05 08:06 | XMS_ITS | Encounter Summary ---
Author Organization [facility] Address [address] [place] [address] Care Team Providers Care Clerical Aide Name Role Phone Bernie Adam MD Unavailable [phone] Bernie Adam MD Primary Care Provider [phone] Bernie Adam MD Unavailable [phone] Bernie Adam MD Unavailable [phone] Encounter Details Date Type Department Care Team (Late st Contact Info) Description 11/16/2022 [facility] [address] [place] [address] Sher Lou, [address] [place], [place] [phone] Social History Tobacco Use Types Packs/Day Years [...] Description 09/03/2024 1:00 PM EDT [facility] [address] [place] [address] Sher Lou, DPM [address] [place] [address] 09/03/2024 2:00 PM EDT Office Visit [facility] [address] [place] [address] Kenia Castillo NP [address] [place] [address] documented as of this encounter Visit Diagnoses Not on filedocumented in this encounter Care Teams Clerical Aide Relationship Specialty Start Date End Date Bernie Adam MD [address] [place] [address] PCP - ACO Reach 07/07/22 04/13/23 Bernie Adam MD [address] [place] [address] PCP - General Family Medicine 08/01/22 Bernie Adam MD [address] [place] [address] PCP - ACO Reach 06/14/23 03/21/24 Bernie Adam MD [address] [place] [address] PCP - ACO Reach 03/29/24 05/16/24 documented as of this encounter
--- OUTSIDE RECORDS SUMMARY | 2024-08-05 08:07 | XMS_ITS | Encounter Summary ---
Author Organization [facility] Address [address] [place] [address] Care Team Providers Care Machine Bookkeeper Name Role Phone Bernie Adam MD Primary Care Provider [phone] Bernie Adam MD Unavailable [phone] Bernie Adam MD Unavailable [phone] Reason for Visit * Reason Comments Med Refill Encounter Details Date Type Department Care Team (Late st Contact Info) Description 09/12/2023 Refill [facility] [address] [place] [address] Kenia Castillo NP [address] [place], [place] [phone] Type 2 diabetes mellitus with diabetic peripheral angiopathy without gangrene (HCC) Social History Tobacco Use Types Packs/Day [...] Procedure Visit [facility] [address] [place] [address] Sher Lou, DPM [address] [facility] [place] [address] 09/03/2024 2:00 PM EDT Office Visit [facility] [address] [place] [address] Kenia Castillo NP [address] [facility] [place] [address] documented as of this encounter Visit Diagnoses Diagnosis Type 2 diabetes mellitus with diabetic peripheral angiopathy without gangrene (HCC) documented in this encounter Care Teams Machine Bookkeeper Relationship Specialty Start Date End Date Bernie Adam MD [address] [facility] [place] [address] PCP - General Family Medicine 08/01/22 Bernie Adam MD [address] [facility] [place] [address] PCP - ACO Reach 06/14/23 03/21/24 Bernie Adam MD [address] [facility] [place] [address] PCP - ACO Reach 03/29/24 05/16/24 documented as of this encounter
--- OUTSIDE RECORDS SUMMARY | 2024-08-05 08:07 | XMS_ITS | Patient Health Record ---
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 Marked as completed tx. 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) Referral Organization [facility] Referring Provider First Name Soo Referring Provider Last Name Harish Referring Provider Speciality [facility] Referred Provider Specialty Authorizatio n General Notes Asmita Haddad 025 03:09:38 PM >Marked as ready to submit., Rocio Yun 02/28/2024 03:19:51 PM >Submitted prior on [employer] website, Clare Gorman 03/07/2024 03:39:21 PM >Approved, [...] Body mass index 40+ - morbidly obese ([id number]) BMI 40.0-44.9, adult (Z68.41) Active confirmed Vital Signs Heart Rate 66 /min 06/13/2024 Blood pressure diastolic 89 mm Hg 06/13/2024 Height-cm 182.88 cm 06/24/2024 Weight-kg 141.98 kg 06/24/2024 Height 72 in 06/24/2024 Blood pressure systolic 153 mm Hg 06/13/2024 Weight 313 lbs 06/24/2024 BMI 42.45 kg/m2 06/24/2024 Encounters Encounter Location Date Provider Diagnosis [facility] [address] [place] [id number] 02/28/2024 Soo Moreira BMI 40.0-44.9, rasta lt Z68.41 ; Dietary counseling Z71.3 ; Exercise counseling Z71.82 ; Necrosis of pulp K04.1 ; Encounter for dental examination and cleaning with abnormal findings Z01.21 and Complete loss of teeth, unspecified cause, class I K08.[address] [facility] [address] [place] [address] [id number] 04/24/2024 Soo Moreira Other specified disorders of teeth and supporting structures K08.[address] [facility] [address] [place] [id number] 05/01/2024 Soo Moreira Other specified disorders of teeth and supporting structures K08.[address] [facility] [address] [place] [address] [id number] 05/09/2024 Soo Hatala Other specified disorders of teeth and supporting structures K08.8 [facility] [address] [place] [address], [place] [id number] 05/16/2024 Soo Hatala Other specified disorders of teeth and supporting structures K08.8 [facility] [address] [place] [address], [place] [id number] 05/23/2024 Soo Hatala Other specified disorders of teeth and supporting structures K08.8 [facility] [address] [place] [address], [place] [id number] 05/30/2024 Soo Hatala Other specified disorders of teeth and supporting structures K08.8 [facility] [address] [place] [address], [place] [id number] 06/06/2024 Soo Hatala BMI 40.0-44.9, rasta lt Z68.41 and Complete loss of teeth, unspecified cause, class I K08.101 [facility] [address] [place] [address], [place] [id number] 06/10/2024 Soo Harish BMI 40.0-44.9, rasta lt Z68.41 and Other specified disorders of teeth and supporting structures K08.[address] [facility] [address] [place] [address], [place] [id number] 06/13/2024 Soo Hatala Other specified disorders of teeth and supporting structures K08.[address] [facility] [address] [place] [address], [place] [id number] 06/24/2024 Soo Hatala Other specified disorders of teeth and supporting structures K08.8 Main [address] [facility], [place] [id number] 08/25/2023 Soo Helioala [facility] [address] [place] [address], [place] [id number] 11/08/2023 Soo Hatala [facility] [address] [place] [address], [place] [id number] 02/28/2024 Soo Harish Assessments Encounter Date Diagnosis [...] Insured Coverage Start Date Coverage End Date [facility] [address] [place] [address] [phone] [id number] Yang Card Self - patient is the insured 4 Medical (General) History Medical History History ICD Code high blood pressure artificial joints blood thinner A-fib diabetes
--- OUTSIDE RECORDS SUMMARY | 2024-08-05 08:07 | XMS_ITS | Referral Summary ---
Author Organization [facility] Address [address] [place] [address] Care Team Providers Care Locket Maker Name Role Phone Unavailable Primary Care Provider Unavailabl e Social History Tobacco Use Types Packs/Day Years Used Date Smoking Tobacco: Never Assessed Sex and Gender Information Value Date Recorded Sex Assigned at Not on file Legal Sex Male 12:32 AM EDT Gender Identity Not on file Sexual Orientation Not on file Plan of Treatment Not on file
--- OUTSIDE RECORDS SUMMARY | 2024-08-05 08:07 | XMS_ITS | Clinical Summary ---
Author Organization [facility] Address [address] [place] [address] Care Team Providers Care Flue Lining Dipper Name Role Phone Unavailable Primary Care Provider [...]
--- OUTSIDE RECORDS SUMMARY | 2024-08-05 08:07 | XMS_ITS | Clinical Summary ---
Author Organization [facility] Address [address] [place] [address] Care Team Providers Care Coil Winding Machines Set Up Mechanic Name Role Phone Jeannine Evangelista RUBBER PRODUCTION MACHINE OPERATOR - CARE TRAINER Primary Care P rovider Allergies No known [...] Description 07/11/2024 11:00 AM EDT Clinical Support [facility] Part [address] [address] AF (paroxysmal atrial fibrillation) (HCC) (Primary Dx); Chronic anticoagulation; PAF (paroxysmal atrial fibrillation) (HCC) 07/11/2024 Orders Only [facility] Part [address] [address] Ce Mccormick 07/11/2024 Telephone [facility] Part [address] [place] [address] Ej Foster MD Other (Swelling /) 07/11/[address] [address] Bernie Knight MA 05/14/2024 11:20 AM EDT Office Visit [facility] [address] [place] [address] Ej Foster MD AF (paroxysmal atrial fibrillation) (HCC) (Primary Dx); Chronic anticoagulation; Essential hypertension; Type 2 diabetes mellitus with diabetic nephropathy, without long-term current use of insulin (HCC); Mixed hyperlipidemia; Obesity, Class III, BMI 40-49.9 (morbid obesity) (HCC) from Last 3 Months Social History Tobacco [...] 11/18/2024 10:00 AM EDT Office Visit [facility] Part of [address] [phone] Ej Foster MD [address] [place] [phone] 6 month Health Maintenance Due Date Last [...] Chronic anticoagulation PAF (paroxysmal atrial fibrillation) (HCC) EKG 12-LEAD Routine 05/14/2024 AF (paroxysmal atrial fibrillation) (HCC) Chronic anticoagulation Essential hypertension Type 2 diabetes mellitus with diabetic nephropathy, without long-term current use of insulin (HCC) Mixed hyperlipidemia Obesity, Class III, BMI 40-49.9 (morbid obesity) (HCC) BASIC METABOLIC PANEL Routine 05/03/2022 12:37 PM [...] mellitus with other specified complication, unspecified whether roasterman insulin use (HCC) Class 2 obesity with [...] Basic Metabolic Panel (05/03/2022 12:37 PM EDT) [facility] Signature Glucose 119(H) 70 - 99 mg/dL 05/03/2022 12:[address] [facility] BUN 18 8 - 23 mg/dL 05/03/2022 12:[address] [facility] Creatinine 0.78 0.70 - 1.20 mg/dL 05/03/2022 12:[address] [facility] Est, Glom Filt Rate >60 >60 mL/min/1.7 3m2 05/03/2022 12:[address] [facility] Comment: These results are not [...] 9 - 20 05/03/2022 12:[address] [facility] Calcium 9.1 8.6 - 10.4 mg/dL 05/03/2022 12:[address] [facility] Sodium 140 135 - 144 mmol/L 05/03/2022 12:[address] [facility] Potassium 3.9 3.7 - 5.3 mmol/L 05/03/2022 12:[address] [facility] Chloride 102 98 - 107 mmol/L 05/03/2022 12:[address] [facility] CO2 27 20 - 31 mmol/L 05/03/2022 12:[address] [facility] Anion Gap 11 9 - 17 mmol/L 05/03/2022 12:[address] [facility] BLOOD SPECIMEN / Unknown 05/03/2022 12:37 PM EDT 05/03/2022 12:38 PM EDT us Ej Foster MD CHEMISTRY ORDERABLES Final Resu lt Performing Organization Address City/[facility]/ZIP Co de Phone Number [facility] [address] [phone] * Hemoglobin A1C (03/10/2020 12:35 PM EST) Hemoglobin A1C 5.4 4.0 - 6.0 % 03/10/2020 12:35 PM EST [facility] Estimated Avg Glucose 108 mg/dL 03/10/2020 12:35 PM EST [facility] [employer] Comment: The ADA and AACC recommend providing the estimated average glucose result to permit better patient understanding of their HBA1c result. BLOOD SPECIMEN / Unknown 03/10/2020 12:35 PM EST 03/10/2020 12:36 PM EST us Ej Foster MD CHEMISTRY ORDERABLES Final Resu lt Performing Organization Address City/[facility]/ZIP Co de Phone Number [facility] [address] [phone] [facility] [address] [place] [address], [facility] [phone] * Lipid Panel (03/10/2020 12:35 PM EST) Cholesterol 162 <200 mg/dL 03/10/2020 12:35 PM EST [facility] [employer] Comment: Cholesterol Guidelines: <200 Desirable 200-240 Borderline >240 Undesirable HDL 41 >40 mg/dL 03/10/2020 12:35 PM EST [facility] [employer] Comment: HDL Guidelines: <40 Undesirable 40-59 Borderline >59 Desirable LDL Cholesterol 102 0 - 130 mg/dL 03/10/2020 12:35 PM EST [facility] [employer] Comment: LDL Guidelines: <100 Desirable 100-129 Near to/above Desirable 130-159 Borderline >159 Undesirable Direct (measured) LDL and calculated LDL are not interchangeable tests. Chol/HDL Ratio 4.0 <5 03/10/2020 12:35 PM EST [facility] [employer] Comment: Triglycerides 97 <150 mg/dL 03/10/2020 12:35 PM EST [facility] [employer] Comment: Triglyceride Guidelines: <150 Desirable 150-199 Borderline 200-499 High >499 Very high Based on AHA Guidelines for fasting triglyceride, November 2011. VLDL NOT REPORTED 1 - 30 mg/dL 03/10/2020 12:35 PM EST [facility] [employer] BLOOD SPECIMEN / Unknown 03/10/2020 12:35 PM EST 03/10/2020 12:36 PM EST Ej Foster MD CHEMISTRY ORDERABLES Final Resu lt [facility] [address] [place] [address], [facility] [phone] [facility] [address] [place] [address], [facility] [phone] from Last 3 Months or Most Recently Relevant to Health Maintenance Insurance [employer] [facility] Advance Directives * Full Code (Latest Code Status on File) Date Activated Date Inactivated Comments 02/12/2020 7:58 AM 02/12/2020 11:52 AM Care Teams Coil Winding Machines Set Up Mechanic Relationship Specialty Start Date End Date Jeannine Evangelista, RUBBER PRODUCTION MACHINE OPERATOR - CARE TRAINER [address] [place] [address] PCP - General Nurse Practitioner, Family 01/30/20
--- OUTSIDE RECORDS SUMMARY | 2024-08-05 08:07 | XMS_ITS | Encounter Summary ---
Author Organization [facility] Address [address] [place] [address] Care Team Providers Care Financial Services Sales Representative Name Role Phone Bernie Adam MD Primary Care Provider [phone] Bernie Adam MD Unavailable [phone] Bernie dAam MD Unavailable [phone] Reason for Visit * Reason Comments Med Refill Encounter Details Date Type Department Care Team (Late st Contact Info) Description 11/19/2023 Refill [facility] [address] [place] [address] Kenia Castillo NP [address] [place], [place] [phone] Type 2 diabetes mellitus with diabetic peripheral [...] Procedure Visit [facility] [address] [place] [phone] Sher Lou, DPM [address] [place] [address] 09/03/2024 2:00 PM EDT Office Visit [facility] [address] [place] [facility] [place] [phone] Kenia Castillo NP [address] [place] [facility] [place] [address] documented as of this encounter Visit Diagnoses Diagnosis Type 2 diabetes mellitus with diabetic peripheral angiopathy without gangrene (HCC) documented in this encounter Care Teams Financial Services Sales Representative Relationship Specialty Start Date End Date Bernie Adam MD [address] [facility] [place] [address] PCP - General Family Medicine 08/01/22 Bernie Adam MD [address] [place] [address] PCP - ACO Reach 06/14/23 03/21/24 Bernie Adam MD [address] [place] [address] PCP - ACO Reach 03/29/24 05/16/24 documented as of this encounter
--- OUTSIDE RECORDS SUMMARY | 2024-08-05 08:07 | XMS_ITS | Encounter Summary ---
Author Organization [facility] Address [address] [place] [place] [address] Care Team Providers Care Executive Secretary Name Role Phone Bernie Adam MD Unavailable Bernie Adam MD Primary Care Provider Bernie Adam MD Unavailable [phone] Bernie Adam MD Unavailable [phone] Encounter Details Date Type Department Care Team (Late st Contact Info) Description 09/23/2022 Orders Only [facility] [address] [place] [phone] Bernie Adam MD [address] [place], [place] [phone] Pulled muscle (Primary Dx) Social History Tobacco [...] Procedure Visit [facility] [address] [place] [phone] Sher Lou, DAVYM [address] [place] [address] 09/03/2024 2:00 PM EDT Office Visit [facility] [address] [facility] [place] [place] [phone] Kenia Castillo NP [address] [facility] [place] [place] [address] documented as of this encounter Visit Diagnoses Diagnosis Pulled muscle- Primary Unspecified site of sprain and strain documented in this encounter Care Teams Executive Secretary Relationship Specialty Start Date End Date Bernie Adam MD [address] [facility] [place] [place] [address] PCP - ACO Reach 07/07/22 04/13/23 Bernie Adam MD [address] [facility] [place] [place] [address] PCP - General Family Medicine 08/01/22 Bernie Adam MD [address] [facility] [place] [place] [address] PCP - ACO Reach 06/14/23 03/21/24 Bernie Adam MD [address] [facility] [place] [place] [address] PCP - ACO Reach 03/29/24 05/16/24 documented as of this encounter
[2024-08-05 08:26] VITALS: BP 142/75; PULSE 58; TEMP 36.2; O2SAT 95
[2024-08-05 08:32] LABS: Glucometer 122 mg/dL (74-106)
[2024-08-05 09:14] VITALS: BP 195/91; PULSE 64; O2SAT 94
[2024-08-05 09:15] VITALS: BP 180/84; PULSE 59; O2SAT 95
[2024-08-05] MEDS: BUPIVACAINE HCL 0.25% PF 25 MG/10 ML VIAL INJ (09:17)
[2024-08-05] MEDS: 0.9 % SODIUM CHLORIDE 10 ML SYRINGE - SALINE FLUSH INJ (09:17)
[2024-08-05] MEDS: METHYLPREDNISOLONE ACETATE 80 MG/ML VIAL INJ (09:18)
[2024-08-05] MEDS: LIDOCAINE HCL 2% 400 MG/20 ML MDV 3 ML INJ (09:18)
[2024-08-05] MEDS: IOHEXOL 240 MG/ML - 10 ML VIAL 24 MG INJ (09:18)
--- NOTE | 2024-08-05 09:20 | P.ON_ITS ---
Date of procedure: 08/05/24 Pre-op diagnosis: Pain due to lumbar stenosis with neurogenic claudication Post-op diagnosis: same as pre-op Procedure: Procedure: Left L4-5, L5-S1 transforaminal epidural steroid injection Medications: Bupivacaine 0.25% 2cc, lidocaine 2% 1cc, depomedrol 80mg The patient was seen and examined in the preoperative holding area.? Informed consent was obtained and placed on the chart.? Patient was brought to the medical procedure unit and placed in the prone position where a timeout was completed verifying the correct patient, procedure site, position, and planned special equipment using sterile aseptic technique.? Under direct fluoroscopic visualization a 25-gauge Quincke tipped spinal needle was advanced to the designated neural foramen where contrast dye was injected to show adequate spread.? The needle was inserted at level left L4-5. There was no evidence of vascular or adverse uptake.? Epidural spread was appreciated.? The above- mentioned injectate was then placed in a 1.5 mL aliquot preceded by negative aspiration.? The needle was removed. The needle was inserted and the procedure repeated at level left L5-S1.? The surgery site was covered.? Patient was taken to the postprocedural recovery area and monitored for an appropriate length of time before found suitable for discharge in the accompaniment of a responsible adult. Anesthesia: Local Surgeon: Ever Guillen Pathology: none sent Condition: stable Disposition: no change
== END 2024-08-05 09:49 | disposition home or self-care (01) ==
LOC: SURGOUT 08:03
PROVIDERS: Visit Provider Anesthesiology
DX: M54.50 Low back pain, unspecified (principal); M48.062 Spinal stenosis, lumbar region with neurogenic claudication; E11.8 Type 2 diabetes mellitus with unspecified complications; Z79.84 Long term (current) use of oral hypoglycemic drugs
CPT/HCPCS: 36415; 64483; 64484; 82948; J0665; J1010; Q9966

== ENCOUNTER 2024-08-14 13:25 | Outpatient (OUT) | payer OTHER, SELFPAY ==
--- NOTE | 2024-08-14 14:16 | PM.CN ---
Consult Note: HPI Data of Consult Patient: known to practice within the last 3 years Requesting Physician: Kelley Richard NP Primary Care Provider: Non-Staff Physician, MD Consult Narrative Reason for consult: left hip pain Narrative: 73yom who presents for assessment. continues to have moderate to severe left hip and left leg pain. imaging reviewed, which is significant for left-sided foraminal stenosis at l4-5, l5-s1. continues in a series of provider directed home exercises >6 weeks, without lasting relief. uses tylenol primarily. cannot take nsaids due to blood thinner. denies adverse med side effects. recently underwent repeat left L4-5 L5-S1 TFESI with >50% improvement ongoing. pt expressing frustration with bilateral leg weakness/heaviness cc:: CC: Kelley Richard NP Review of Systems ROS Status of ROS 10 or more systems reviewed and unremarkable except as noted in history and below Musculoskeletal Reports: back pain and joint pain; Denies: extremity pain PFSH PFSH Medical History (Updated 08/14/24 @ 14:17 by Kelley Richard NP) Diabetes �E11.9 - Type 2 diabetes mellitus without complications (ICD-10) High cholesterol �E78.00 - Pure hypercholesterolemia, unspecified (ICD-10) Atrial fibrillation, chronic �I48.20 - Chronic atrial fibrillation, unspecified (ICD-10) HTN (hypertension) �I10 - Essential (primary) hypertension (ICD-10) Surgical History History of knee surgery �Z98.890 - Other specified postprocedural states (ICD-10) History of back surgery �Z98.890 - Other specified postprocedural states (ICD-10) Meds Home Medications and Allergies Home Medications �Medication �Instructions �Recorded �Confirmed �Type allopurinol 100 mg tablet 100 mg PO DAILY 06/22/23 08/05/24 History apixaban 5 mg tablet (Eliquis) 5 mg PO BID 06/22/23 08/05/24 History ascorbic acid (vitamin C) 500 mg 500 mg PO DAILY 06/22/23 08/05/24 History chewable tablet atorvastatin 10 mg tablet 10 mg PO DAILY 06/22/23 08/05/24 History cholecalciferol (vitamin D3) 25 1,000 unit PO DAILY 06/22/23 08/05/24 History mcg (1,000 unit) tablet (Vitamin D3) losartan 50 mg-hydrochlorothiazide 1 tab PO DAILY 06/22/23 08/05/24 History 12.5 mg tablet metformin 500 mg tablet 500 mg PO BID 06/22/23 08/05/24 History metoprolol tartrate 25 mg tablet 12.5 mg PO BID 06/22/23 08/05/24 History omeprazole 20 mg capsule,delayed 20 mg PO DAILY 06/22/23 08/05/24 History release ropinirole 1 mg tablet 1.5 mg PO DAILY 06/22/23 08/05/24 History tamsulosin 0.4 mg capsule 0.4 mg PO DAILY 06/22/23 08/05/24 History gabapentin 300 mg capsule 300 mg PO Q12H 02/27/24 08/05/24 History gabapentin 600 mg tablet 600 mg PO BID #60 tabs 04/08/24 08/05/24 Rx hydrocodone 5 mg-acetaminophen 325 1 tab PO BID PRN pain #14 tabs 06/19/24 08/05/24 Rx mg tablet baclofen 10 mg tablet See Rx Instructions .Route 07/17/24 08/05/24 Rx .COMPLEX PRN muscle spasm #30 tabs Allergies Allergy/AdvReac Type Severity Reaction Status Date / Time No Known Drug Allergies Allergy Verified 08/05/24 08:28 Exam Constitutional Documenting provider has reviewed patient's vital signs: yes Common normals: no apparent distress, oriented x3, healthy appearing, alert and well nourished General appearance: cooperative HENNY Common normals: normocephalic, hearing grossly normal bilaterally and moist oral mucous membranes Head and scalp: normocephalic Eye Common normals: PERRL Pupil: PERRL Neck & C-Spine Common normals: full ROM General: normal visual inspection Chest Common normals: inspection of chest normal Respiratory Common normals: normal respiratory effort, no retractions and no use of accessory muscles Back & Pelvis Lumbar spine/lower back: ROM limited, pain with ROM, lumbar spinal tenderness, straight leg raise positive right and straight leg raise positive left Sacroiliac joints: SI joint(s) abnormal Other: positive left>right alise(patricks), gaenslens, thigh thrust, compression test decreased sensation left L4,5,S1 strength 4/5 in BLE Neuro Common normals: oriented x3 Sensorium/orientation: alert Motor exam: strength 5/5 throughout and no movement abnormalities noted Psych Common normals: mental status grossly normal, thought process normal, cooperative, affect normal, speech normal and activity/motor behavior normal Speech: normal speech Thought process: normal thought process Results Additional Findings Additional findings: If on a controlled substance or opioids, I have checked an [place]AR[place] report on this patient and there are no aberrancies noted in the prescribing history.��If on a controlled substance or opioid a drug screen was completed and reviewed within the last year, and if there has not been a drug screen completed we ordered one today to monitor higher risk, state monitored pain medication use. As part of providing excellent, safe, comprehensive care, the following was completed at our patient's visit: 1. A medication reconciliation and review to ensure accurate knowledge of current/active medications, including asking our patients to inform us about any [id number] medications or herbal remedies/nutritional supplements/alternative remedies. 2. A review to specifically ensure our patients have had annual screening for screening for depression, screening for tobacco use, and screening for unhealthy alcohol use. For concerning screenings had a discussion with the patient, provided patient education, and recommended follow-up with primary care provider when appropriate. If patient noted with a risk of falling, they received education on strength, gait, and balance training to prevent future risk of falling. Portions of this note may have been carried over from the previous visit and updated as appropriate. Please note this office utilizes paper charting in addition to the electronic medical record. A list of current medications, vitals, and PMH is available there as the clinical staff outside of myself do not have access to [employer] charting during the clinic day operations. As part of providing quality comprehensive care the current medications, vitals, and PMH were reviewed in the paper chart. Assessment and Plan Assessment and Plan (1) Lumbar stenosis with neurogenic claudication: (2) Sacroiliitis: (3) Diabetes mellitus with diabetic neuropathy: Plan PT for lumbar stenosis with NC and bilateral leg weakness scs information provided continue baclofen 5-10mg hs prn pain/spasms continue gabapentin 600mg BID continue hydrocodone 5-325mg BID PRN moderate to severe pain f/u 6 weeks to discuss scs and response to PT
== END 2024-08-14 13:26 | disposition home or self-care (01) ==
LOC: PM 13:25
PROVIDERS: Visit Provider Nurse Practitioner
DX: M48.062 Spinal stenosis, lumbar region with neurogenic claudication (principal); E11.40 Type 2 diabetes mellitus with diabetic neuropathy, unspecified
CPT/HCPCS: G0463

== ENCOUNTER 2024-10-17 13:41 | Outpatient (OUT) | payer OTHER, SELFPAY ==
--- OUTSIDE RECORDS SUMMARY | 2024-10-17 14:00 | XMS_ITS | CCD ---
Author Organization [facility] Care Team Providers Care Blast Furnace Supervisor Name Role Phone Unavailable Primary Care Provider Unavailabl e MISC, DOCTOR Primary Care Unavailable MATTEVI, ARMANDO Admitting Unavailable MATTEVI, ARMANDO Consulting Unavailable MATTELOGAN, ARMANDO Attending Unavailable Rupesh Ulrich Consulting Unavailable Jeannine Evangelista Primary Care Provider Tonja KIM - SHAILESH, Jeannine Alfonso Primary Care P rovider Bernie Adam MD Unavailable Bernie Adam MD Primary Care Provider EVANS Redd Attending Provider AWAIS Evangelista Primary Care Provider AWAIS Evangelista Primary Care Provider EVANS Redd Attending Provider Trenton Redd Attending Unavailable Trenton Redd Admitting Unavailable Jeannine Evangelista Primary Care Unavailable DAVID AWAD JR Attending UnavailDAVID Rahman JR Referring Unavailabl e JEANNINE EVANGELISTA Primary Care Unavailab DAVID Roman JR Attending Unavailabl DAVID Farias JR Referring Unavailabl e JEANNINE EVANGELISTA A Primary Care Unavailab Bernie Barrios MD Unavailable [phone] Jeannine Villatoro APRN, CNP Primary Care P rovider SHALINI MORROW Referring Unavailable JEANNINE EVANGELISTA Primary Care Unavailab SHALINI Weber Referring Unavailable JEANNINE EVANGELISTA Primary Care Unavailab EJ Johnson Referring Unavailable TONJA, JEANNINE Alfonso Primary Care Unavailab EJ Johnson Attending Unavailable EJ FOSTER Referring Unavailable TONJA, JEANNINE Alfonso Primary Care Unavailab cipriano Gieditis , Andzuri Gonzalez Attending Unavailable Giedraitis , Andrius Gonzalez Attending Unavailable Giedraitis , Andrius Lisa Attending Unavailable Giedraitis , Andrius Lisa Attending Unavailable Giedraitis , Andrius Lisa Attending Unavailable Giedraitis , Andrius Gonzalez Attending Unavailable RUSHER, ARIANNA Alfonso Attending Unavailable KAMPFER, KENIA Attending Unavailable KAMPFER, KENIA Attending Unavailable KAMPFER, KENIA Referring Unavailable ARGUETA, VALERIE Attending Unavailable UNALLOCATED, NOMS PROVIDER Referring Unava ilable STEFFANY, ARIANNA Alfonso Attending Unavailable KELBLEY, MADDIE Attending Unavailable LIZZETH, ALLEY Referring Unavailable BRINK, MONY Attending Unavailable LIZZETH, ALLEY Referring Unavailable KAMPFER, KENIA Attending Unavailable BRINK, MONY Attending Unavailable LIZZETH, ALLEY Referring Unavailable KELBLEY, MADDIE Attending Unavailable LIZZETH, ALLEY Referring Unavailable KELBLEY, MADDIE Attending Unavailable LIZZETH, ALLEY Referring Unavailable KELBLEY, MADDIE Attending Unavailable LIZZETH, ALLEY Referring Unavailable KAMPFER, KENIA Attending Unavailable RUSHER, ARIANNA Alfonso Attending Unavailable EVANGELISTA, JEANNINE Alfonso Attending Unavailab le KAMPFER, KENIA Attending Unavailable BRINK, MONY Attending Unavailable LIZZETH, ALLEY Referring Unavailable Medications Current Medications Medication Drug Class(es) Dates Sig (Normalized) Sig (Original) allopurinol 100 mg oral tablet (20 sources) Xanthine Oxidase Inhibitor Start: 03-12-2024 End: 07-09-2024 take 1 tablet by mouth in the morning allopurinol (Zyloprim) 100 MG tablet Indications: 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 TAKE 1 TABLET IN THE MORNING 90 tablet 1 09/15/2023 Active amiodarone hydrochloride 200 mg oral tablet (20 sources) Antiarrhythmic Start: 04-24-2024 amiodarone (Pa cerone) 200 MG tablet Oral for 30 Days 04/24/2024 Active Start: 02-23-2024 take 1 tablet by abdullahi th once daily amiodarone (CORDARONE) 200 MG tablet Take 1 tablet by mouth daily 30 tablet 1 02/23/2024 Active amitriptyline hydrochloride 10 mg oral tablet (20 sources) Tricyclic Antidepressant Start: 07-18-2023 End: 07-09-2024 take 1 tablet by mouth at bedtime amitriptyline (Elavil) 10 MG tablet Indications: Insomnia, unspecified type , Lumbar radiculopathy Take 1 tablet (10 mg) by mouth at bedtime 90 tablet 07/09/2024 Active amoxicillin 875 mg / clavulanate 125 mg oral tablet (11 sources) Penicillin-class Antibacterial Start: 05-20-2024 End: 05-27-2024 take 1 tablet by mouth in the morning amoxicillin-clavul anate (Augmentin) 875-125 MG tablet Indications: Non-recurrent acute suppurative otitis media of left ear without spontaneous rupture of tympanic membrane Take 1 tablet (875 mg) by mouth in the morning and 1 tablet (875 mg) before bedtime. Do all this for 7 days. 14 tablet 05/20/2024 05/27/2024 Active Start: 12-26-2023 End: 01-05-2024 take 1 tablet by mouth in the morning amoxicillin-clavulanate (Augmentin) 500-125 MG tablet Indications: Acute right otitis media Take 1 tablet (500 mg) by mouth in the morning and 1 tablet (500 mg) before bedtime. Do all this for 10 days. 20 tablet 12/26/2023 01/05/2024 apixaban 5 mg oral tablet (20 sources) Factor Xa Inhibitor Start: 04-04-2023 End: 07-09-2024 take 1 tablet by mouth in the morning apixaban (Eliquis) 5 MG tablet Indications: Paroxysmal atrial fibrillation (HCC) Take 1 tablet (5 mg) by mouth in the morning and 1 tablet (5 mg) before bedtime. 180 tablet 1 07/09/2024 Active Start: 01-22-2020 End: 09-30-2020 take 1 tablet by mouth twice daily apixaban (ELIQUIS) 5 MG TABS tablet Take 1 tablet by mouth 2 times daily for 14 days 28 tablet 0 09/16/2020 09/30/2020 Active Eliquis 5 MG tab let every 12 (twelve) hours. 0 Active atorvastatin 10 mg oral tablet (20 sources) HMG-CoA Reductase Inhibitor Start: 12-13-2023 End: 07-09-2024 take 1 tablet by mouth in the morning atorvastatin (Lipitor) 10 MG tablet Indications: Other hyperlipidemia Take 1 tablet (10 mg) by mouth in the morning. 90 tablet 3 07/09/2024 Active Start: 06-16-2023 atorvastatin ( Lipitor) 10 [...] 10 days. 30 capsule 10/11/2023 10/21/2023 Active 12 hr dextromethorphan hydrobromide 30 mg / guaiFENesin 600 mg extended release oral tablet (1 source) Uncompetitive N-ekslnk-D-aspartate Receptor Antagonist, Sigma-1 Agonist Start: End: take 1 tablet by mouth in the morning, then take 1 tablet by mouth every twelve hours at bedtime Dextromethorphan-g uaiFENesin (Mucinex DM) 30-600 MG tablet sustained-release 12 hour Indications: Acute cough Take 1 tablet by mouth in the morning and 1 tablet before bedtime. Do all this for 10 days. 28 tablet 05/23/2024 06/02/2024 Active finasteride 5 mg oral tablet (12 sources) 5-alpha Reductase Inhibitor Start: 025 take 1 tablet by mouth once daily finasteride (Proscar) 5 MG tablet Indications: Benign prostatic hyperplasia with lower urinary tract symptoms, symptom details unspecified Take 1 tablet (5 mg) by mouth Daily Do not crush, chew, or split. 90 tablet 1 09/18/2024 Active gabapentin 300 mg oral capsule (20 sources) Anti-epileptic Agent Start: take 1 capsule by mouth in the morning gabapentin (Neurontin) 300 MG capsule Take 300 mg by mouth in the morning and 300 mg before bedtime. 01/31/2024 Active hydroCHLOROthiazide 12.5 mg / losartan potassium 50 mg oral tablet (20 sources) Thiazide Diuretic, Angiotensin 2 Receptor Lex Start: End: 025 take 1 tablet by mouth in the morning losartan-hydroCHLO ROthiazide (Hyzaar) 50-12.5 MG tablet Indications: Primary hypertension Take 1 tablet by mouth in the morning. 90 tablet 1 07/09/2024 Active Start: 07-28-2022 take 1 tablet by [...] tablet (20 sources) Biguanide Start: 11-20-2023 End: 07-09-2024 take 1 tablet by mouth in the morning metFORMIN (Glucophage) 500 MG tablet Indications: Type 2 diabetes mellitus with diabetic peripheral angiopathy without gangrene (HCC) Take 1 tablet (500 mg) by mouth in the morning and 1 tablet (500 mg) in the evening. Take with meals. 180 tablet 1 07/09/2024 Active Start: 09-13-2023 metFORMIN (Glu cophage) 500 MG tablet Indications: Type 2 diabetes mellitus with diabetic peripheral angiopathy without gangrene (CMS/HCC) TAKE 1 TABLET IN THE MORNING AND 1 TABLET IN THE EVENING WITH MEALS 180 tablet 09/13/2023 Active methocarbamol 500 mg oral tablet (12 sources) Muscle Relaxant Start: 09-11-2024 take 1 tablet by mouth every eight hours as needed methocarbamol (Robaxin) 500 MG tablet Take 500 mg by mouth every 8 (eight) hours if needed 09/11/2024 Active metoprolol tartrate 50 mg oral tablet (20 sources) beta-Adrenergic Lex Start: 07-09-2024 End: 07-09-2024 take 1 tablet by mouth in the morning metoprolol tartrate (Lopressor) 50 MG tablet Indications: Primary hypertension , Paroxysmal atrial fibrillation (HCC) Take 1 tablet (50 mg) by mouth in the morning and 1 tablet (50 mg) before bedtime. 180 tablet 1 07/09/2024 Active Start: 02-23-2024 take 1 tablet by abdullahi th twice daily metoprolol tartrate (LOPRESSOR) 25 MG [...] 25 MG tablet Indications: Persistent atrial fibrillation ([facility]) , SOB (shortness of breath) , Fluid retention , Essential hypertension , Other specified diabetes mellitus with other specified complication, unspecified whether group home insulin use ([facility]) , Class 2 obesity with body mass index (BMI) of 36.0 to 36.9 in adult, unspecified obesity type, unspecified whether serious comorbidity present TAKE 1 TABLET BY MOUTH TWICE DAILY 180 tablet 3 01/22/2020 Active metoprolol tartr ate (Lopressor) 25 MG tablet every 12 (twelve) hours. 0 Active omeprazole 20 mg delayed release oral capsule (20 sources) Proton Pump Inhibitor Start: 06-10-2024 End: 07-09-2024 take 1 capsule by mouth before mealtime omeprazole (PriLOSEC) [address] capsule Indications: Gastroesophageal reflux disease without esophagitis Take 1 capsule (20 mg) by mouth in the morning. Take before meals. Do not crush or chew. 90 capsule 1 07/09/2024 Active Start: 01-21-2020 omeprazole (Pr iLOSEC) [address] capsule Indications: Gastroesophageal reflux disease without esophagitis TAKE 1 CAPSULE EVERY MORNING BEFORE A MEAL 90 capsule 1 12/11/2023 Active polymyxin b 26305 unt/ml / trimethoprim 1 mg/ml ophthalmic solution (4 sources) Dihydrofolate Reductase Inhibitor Antibacterial, Polymyxin-class Antibacterial Start: 05-20-2024 End: 05-27-2024 trimethoprim-polymyxin b (Polytrim) ophthalmic solution Indications: Acute bacterial conjunctivitis of both eyes Administer 1 drop into affected eye(s) in the morning and 1 drop at noon and 1 drop in the evening and 1 drop before bedtime. Do all this for 7 days. 10 mL 05/20/2024 05/27/2024 Active rOPINIRole 1 mg oral tablet (20 sources) Nonergot Dopamine Agonist Start: 07-09-2024 take 1.5 tablets by mouth at bedtime rOPINIRole (Requip) 1 MG tablet Indications: Restless Leg Syndrome Take 1.5 tablets (1.5 mg) by mouth at bedtime 135 tablet 1 07/09/2024 Active Start: 04-04-2023 End: 07-09-2024 take 1 tablet by mouth at bedtime rOPINIRole (Requip) 1 MG tablet Indications: Restless legs syndrome Take 1 tablet (1 mg) by mouth at bedtime 90 tablet 1 01/31/2024 07/09/2024 Discontinued (Reorder) Start: 10-04-2022 End: 04-02-2023 take 1 tablet [...] capsule (20 sources) alpha-Adrenergic Lex Start: 03-12-2024 End: 07-09-2024 take 1 capsule by mouth every twenty-four hours at bedtime tamsulosin (Flomax) 0.4 MG 24 hr capsule Indications: Benign prostatic hyperplasia with nocturia Take 1 capsule (0.4 mg) by mouth at bedtime 90 capsule 1 07/09/2024 Active Start: 09-15-2023 tamsulosin (Fl omax) 0.4 [...] morning. 90 capsule 1 12/02/2022 05/31/2023 Active Tirzepatide-Weight Management (Zepbound) 2.5 MG/0.5ML solution auto-injector (18 sources) Start: 07-09-2024 End: 09-18-2024 inject 2.5 mg by subcutaneous injection every week Tirzepatide-Weight Management (Zepbound) 2.5 MG/0.5ML solution auto-injector Indications: POOL (obstructive sleep apnea) Inject 2.5 mg under the skin 1 (one) time per week 2 mL 1 07/09/2024 09/18/2024 Discontinued (Alternate therapy) Start: 07-09-2024 inject 2.5 mg by sub cutaneous injection every week Tirzepatide-Weight Management (Zepbound) 2.5 MG/0.5ML solution auto-injector Indications: POOL (obstructive sleep apnea) Inject 2.5 mg under the skin 1 (one) time per week 2 mL 1 07/09/2024 Active tiZANidine 4 mg oral tablet (5 [...] PO (20 sources) VITAMIN D, CHOLECALCIFEROL, PO Active VITAMIN D, OWEN CALCIFEROL, PO Vitamin D Active VITAMIN D, OWEN CALCIFEROL, PO Vitamin D 0 Active Completed/Discontinued Medications Medication Drug Class(es) Dates Sig (Normalized) Sig (Original) acetaminophen 325 mg / HYDROcodone bitartrate 5 mg oral tablet (20 sources) Opioid Agonist Start: 06-28-2023 End: 02-20-2024 take 1 tablet by mouth twice daily as needed HYDROcodone-acetami nophen (Sidney) 5-325 MG tablet Take 1 tablet by mouth 2 (two) times a day as needed 06/28/2023 02/20/2024 Discontinued (Therapy completed) [id number] 200 actuat albuterol 0.09 mg/actuat metered dose inhaler (12 sources) beta2-Adrenergic Agonist Start: 12-26-2023 End: 12-25-2024 take 2 puff(s) by inhalation every four hours for wheezing albuterol HFA 90 mcg/act inhaler Indications: Bronchitis Inhale 2 puffs every 4 (four) hours if needed for wheezing 18 g 12/26/2023 02/20/2024 Discontinued baclofen 10 mg oral tablet (19 sources) [...] mellitus with other specified complication, unspecified whether supervisor long goods insulin use (HCC) , Class 2 obesity [...] chronic] 12-26-2023 Episodic Diabetes mellitus with complications (12 sources) 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 [...] Onset: 07-29-2015 07-18-2022 Chronic Hyperplasia of prostate (6 sources) Benign prostatic hyperplasia; 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: [Benign prostatic hyperplasia with lower urinary tract symptoms] 02-26-2024 Chronic Inflammation; infection of eye (except that caused by tuberculosis or sexually transmitteddisease) (2 sources) Acute infectious conjunctivitis; 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: [Unspecified acute conjunctivitis, bilateral] 05-20-2024 Episodic Nutritional deficiencies (20 sources) Vitamin D deficiency; 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: [Vitamin D deficiency, unspecified] Onset: 05-14-2020 10-04-2022 Chronic Osteoarthritis (20 sources) Bilateral osteoarthritis of knees; 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: [Bilateral primary osteoarthritis of knee] Onset: 10-04-2022 10-04-2022 Chronic Other aftercare (2 sources) Long-term current use of anticoagulant; 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: [terminal carman (current) use of anticoagulants] 02-05-2024 Episodic Other aftercare (1 source) correction (current) use of anticoagulants; 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: [terminal carman (current) use of anticoagulants] Onset: 02-05-2024 Episodic [...] right leg] Episodic Other connective tissue disease (7 sources) Pain of left thigh; 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: [Pain in left thigh] 03-23-2023 Episodic Other connective tissue disease (4 sources) Pain in toe; 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: [Pain in right toe(s)] 11-15-2023 Episodic Other connective tissue disease (8 sources) Other symptoms and signs involving the musculoskeletal system; 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: [Other musculoskeletal symptoms referable to limbs] 08-30-2024 Episodic Other connective tissue disease (2 sources) Pain in bilateral legs; 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: [Pain in both lower extremities] Other diseases of kidney and ureters (1 source) Abnormal renal function; 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: [Disorder of kidney and ureter, unspecified] 07-22-2024 Episodic Other hereditary and degenerative nervous system conditions (20 sources) Restless legs; 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: [Restless legs syndrome] Onset: 07-28-2022 07-28-2022 Chronic Other infections; including parasitic (20 sources) Post-viral disorder; 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: [[id number] condition] Onset: 04-27-2020 10-04-2022 Chronic Other infections; [...] of breath] Episodic Other lower respiratory disease (2 sources) Cough; 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: [Acute cough] 12-29-2023 Episodic Other nervous system disorders (20 sources) Difficulty walking; 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: [Difficulty in walking, not elsewhere classified] Onset: 03-07-2021 10-04-2022 Chronic Other nutritional; endocrine; and metabolic disorders (4 sources) Obesity; 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: [Obesity, unspecified] Chronic Other nutritional; endocrine; and metabolic disorders (20 sources) Body mass index 40+ - severely obese; 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: [Morbid (severe) obesity due to excess calories] Onset: 07-09-2024 02-05-2024 Chronic Other nutritional; endocrine; and metabolic disorders (4 sources) Obesity caused by energy imbalance; 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: [...] of prostate] 02-20-2024 Episodic Other skin disorders (2 sources) Dystrophia unguium; 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: [Nail dystrophy] 11-15-2023 Episodic Otitis media and related conditions (4 sources) Acute right otitis media; 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: [Otitis media, unspecified, right ear] 12-26-2023 Episodic Peripheral and visceral atherosclerosis (20 sources) Peripheral vascular disease; 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: [Peripheral vascular disease, unspecified] Onset: 08-30-2021 10-04-2022 Chronic Residual codes; unclassified (6 sources) Obstructive sleep apnea syndrome; 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: [Obstructive sleep apnea (adult) (pediatric)] 02-23-2024 Chronic Residual codes; unclassified (3 sources) Body fluid retention; 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: [Fluid retention] Episodic Residual codes; unclassified (4 sources) Insomnia; 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: [Insomnia, unspecified] 02-26-2024 Episodic Residual codes; unclassified (2 sources) Colon cancer screening declined; 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: [Procedure and treatment not carried out because of patient's decision for unspecified reasons] 02-26-2024 Episodic Residual codes; unclassified (4 sources) Localized edema; 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: [Localized edema] 07-09-2024 Episodic Spondylosis; intervertebral disc disorders; other back [...] unspecified site] Onset: 05-26-2021 10-04-2022 Episodic Other ITEM REPAIR MANAGER infection and poliomyelitis (20 sources) H/O: poliomyelitis; [...] 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: [Edema, unspecified] Onset: 11-28-2018 10-04-2022 Episodic Viral infection (20 sources) Other specified viral infection; 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: [COVID-19] Onset: 12-16-2019 Resolved: 09-19-2023 01-22-2020 Episodic Results Test Name Value Interpretation Reference Range Facility Laboratory - Hematology and Cell countson 09-18-2024 HbA1c (Bld) [Mass fraction] 6.4 % [facility] No Panel Informationon 09-18 Interpretation and review of laboratory results Normal [facility] US LOWER EXTREMITY VENO US DUPLEX BILATERALon 07-09-2024 [facility] US LOWER EXTREMITY VENOUS DUPLEX BILATERAL EXAM: [facility] US LOWER EXTREMITY VENOUS DUPLEX BILATERAL [...] II, MD, PHD at 10-Jul-2024 09:19:12 AM [facility] Normal Not Available XR CHEST 2 VIEWSon XR CHEST 2 VIEWS Exam: XR CHEST 2 VIEWS Reason for exam: Bilateral leg swelling, no chest complaints Prior comparative studies: None Findings: No consolidation or effusion is apparent. Pleural space is clear. Heart and mediastinum are unremarkable. IMPRESSION: 1. No acute abnormality identified. Dictated on: 07/09/2024 2:02 PM This report has been electronically signed and approved by the interpreting radiologist. Normal Not Available Laboratory - Hematology and Cell countson 05-20-2024 HbA1c (Bld) [Mass fraction] 6.3 % [facility] No Panel Informationon 05-20 Interpretation and review of laboratory results Abnormal [facility] EKG 12 LeadOrdered By: Danny Mascorro on 02-23-2024 Q-T Interval 382 ms [employer] Phone: QRS Duration 96 ms [employer] Phone: QTc Calculation (Bazett) 451 ms [employer] Phone: R [place] -23 degrees [employer] Phone: T [place] 22 degrees [employer] Phone: Ventricular Rate 84 BPM [employer] Phone: [employer] Phone: EKG 12 Leadon 02-23-2024 Atrial fibrillation Abnormal ECG ECG not diagnostic for Acute Coronary Syndrome; consider clinical findings When compared with ECG of 12-FEB-2020 08:26, Atrial fibrillation has replaced Sinus rhythm Confirmed by ARIANNA MASCORRO ([id number]) on 02/23/2024 10:09:04 PM [facility] Arianna Mascorro MD - 02/23/2024 Atrial [...] 471 ms [facility] R Wilmore -23 degrees [facility] T Wilmore -19 degrees [facility] Ventricular [...] ARIANNA MASCORRO ([id number]) on 02/23/2024 9:25:47 PM [facility] Arianna Mascorro MD - 02/23/2024 Normal [...] 56 BPM [facility] P Wilmore 17 degrees [facility] P-R Interval 204 ms [facility] Q-T Interval 442 ms [facility] QRS Duration 98 ms [facility] QTc Calculation (Bazett) 426 ms [facility] R Wil[place] -25 degrees [facility] T [place] 5 degrees [facility] Ventricular Rate 56 BPM [facility] Sinus bradycardia Otherwise normal ECG When compared with ECG of 23-FEB-2024 12:06, (unconfirmed) Previous ECG has undetermined rhythm, needs review Confirmed by ARIANNA MASCORRO ([id number]) on 02/23/2024 9:11:49 PM [facility] Arianna Mascorro MD - 02/23/2024 Sinus bradycardia Otherwise normal ECG When compared with ECG of 23-FEB-2024 12:06, (unconfirmed) Previous ECG has undetermined rhythm, needs review Confirmed by ARIANNA MASCORRO ([id number]) on 02/23/2024 9:11:49 PM [facility] 25-hydroxyvitamin D3 [Mass/V ol]on 02-21-2024 25-hydroxyvitamin D [Mass/Vol] 36 ng/mL 30 - 100 ng/mL [facility] Comment on above: Vitamin D Status 25- [place] Vitamin D: Deficiency: <20 ng/mL Insufficiency: 20 - 29 ng/mL Optimal: > or = 30 ng/mL For 25-OH Vitamin D testing on patients on D2-supplementation and patients for whom quantitation of D2 and D3 fractions is required, the QuestAssureD(TM) 25-OH VIT D, (D2,D3), LC/MS/MS is recommended: order code 15630 (patients >2yrs). See Note 1 Note 1 For additional information, please refer to http://education.CredSimple/faq/IOJ104 (This link is being provided for informational/ educational purposes only.) Laboratory - Chemistry and C hemistry - challengeon 02-21-2024 Albumin [Mass/Vol] 4.1 g/dL 3.6 - 5.1 g/dL [facility] Albumin/Globulin [Mass ratio] 2.2 {ratio} [facility] ALP [Catalytic activity/Vol] 72 U/L 35 - 144 U/L [facility] ALT [Catalytic activity/Vol] 13 U/L 9 - 46 U/L [facility] AST [Catalytic activity/Vol] 16 U/L 10 - 35 U/L [facility] Bilirubin [Mass/Vol] 0.6 mg/dL 0.2 - 1 .2 mg/dL [facility] Calcium [Mass/Vol] 9.1 mg/dL 8.6 - 10. 3 mg/dL [facility] Chloride [Moles/Vol] 102 mmol/L 98 - 11 0 mmol/L [facility] CO2 [Moles/Vol] 27 mmol/L 20 - 32 mmol/L [facility] Creatinine [Mass/Vol] 0.87 mg/dL 0.70 - 1.28 mg/dL [facility] GFR/1.73 sq M.predicted among non-blacks MDRD (S/P/Bld) [Vol rate/Area] 90 mL/min/{1.73_m2} > OR = 60 mL/min/1.73m2 [facility] Globulin (S) [Mass/Vol] 1.9 g/dL [facility] Glucose [Mass/Vol] 139 mg/dL High 65 - 99 mg/dL [facility] Comment on above: Fasting reference interval For someone without known diabetes, a glucose value >125 mg/dL indicates that they may have diabetes and this should be confirmed with a follow-up test. Potassium [Moles/Vol] 4 mmol/L 3.5 - 5.3 mmol/L [facility] Prostate specific Ag [Mass/Vol] 0.33 ng/mL < OR = 4.00 [facility] Comment on above: The total [...] g/dL Low 6.1 - 8.1 g/dL [facility] Sodium [Moles/Vol] 141 mmol/L 135 - 146 mmol/L [facility] Urate [Mass/Vol] 7.5 mg/dL 4.0 - 8.0 mg/dL [facility] Comment on above: Therapeutic target f or gout patients: <6.0 mg/dL Urea nitrogen [Mass/Vol] 17 mg/dL 7 - 25 mg/dL [facility] Urea nitrogen/Creatinine [Mass ratio] SEE NOTE: [facility] Comment on above: Not Reported: BUN an d Creatinine are within reference range. Laboratory - Hematology and Cell countson 02-21-2024 HbA1c (Bld) [Mass fraction] 6.3 % High NINF [facility] Comment on above: For someone [...] 1996 panelon 5 Cholesterol [Mass/Vol] 121 mg/dL [facility] - 200 mg/dL [facility] Cholesterol in HDL [Mass/Vol] 40 mg/dL > OR = 40 [facility] [facility] Cholesterol in LDL [Mass/Vol] 53 mg/dL mg/dL (calc) [facility] Comment on above: Reference range: [...] of LDL-C. SS et al. TANA. 2013;310(19): 3879-2523 (http://education.CredSimple/faq/VPE080) Cholesterol non HDL [Mass/Vol] 81 mg/dL [facility] Comment on above: For patients with di abetes plus 1 major ASCVD risk factor, treating to a non-HDL-C goal of <100 mg/dL (LDL-C of <70 mg/dL) is considered a therapeutic option. Cholesterol.total/Ch olesterol in HDL [Mass ratio] 3 {ratio} [facility] Interpretation and review of laboratory results Abnormal [facility] Triglyceride [Mass/Vol] 224 mg/dL High [facility] - 150 mg/dL [facility] Comment on above: If a non-fasting specimen was collected, consider repeat triglyceride testing on a fasting specimen if clinically indicated. Chantell et al. J. of Clin. Lipidol. 2015;9:129-169. Performing Organization Information Site ID: QPT Name: [employer] [facility] Address: [address] [place] [address], [address] [place] [phone] Director: Curtis Lyons MD Formerly [facility] Microalbumin/Creatinine rati o panel (U)on 02-21-2024 Albumin DL <= 20 mg/L (U) [Mass/Vol] 0.7 mg/dL See Note: [facility] Comment on above: Reference Range: Reference Range Not established Albumin/Creatinine (U) [Mass ratio] 5 NINF [facility] Comment on above: The ADA [...] 154 mg/dL 20 - 320 mg/dL [facility] [employer] Organization Information Site ID: QPT Name: [employer] [facility] Address: [address] [place] [address], [address] [place] [phone] Director: Curtis Lyons MD [facility] No Panel Informationon 02-20 Interpretation and review of laboratory results Abnormal [facility] PATIENT UNABLE TO VOID; ADVISED TO RETURN FOR COLLECTION. [facility] Information Site ID: QPT Name: [employer] [facility] Address: [address] [place] [address], [address] [place] [phone] Director: Curtis Lyons MD [facility] Cardiac echo study Procedure Ordered By: Arianna Mascorro on 02-05-2024 Ao Root Index 0.86 cm/m2 Bon [employer] Phone: Aortic Root 2.2 cm Bon [employer] Phone: Aortic Sinus Valsalva 3.3 cm Bon [employer] Phone: Aortic Sinus Valsalva Index 1.29 cm/m2 [employer] Phone: Ascending Aorta 3.5 cm Bon Secou rs [employer] Phone: Ascending Aorta Index 1.37 cm/m2 Bon [employer] Phone: AV Cusp Mmode 1.8 cm Bon [employer] Phone: AV Mean Gradient 3 mmHg Bon Seco urs [employer] Work Phone: AV Mean Velocity 0.8 m/s Grant rasheed [employer] Work Phone: AV Peak Gradient 6 mmHg Grant rasheed [employer] Work Phone: AV Peak Velocity 1.2 m/s Grant Melo [employer] Phone: AV Velocity Ratio 0.75 Grant SWEEPiO bobby [employer] Phone: AV VTI 18.4 cm [employer] Work Phone: Body surface area Derived from formula 2.67 m2 [employer] Phone: E/E' Lateral 4.69 [employer] Phone: EF BP 55 % 55 - 100 % [employer] Phone: Est. RA Pressure 3 mmHg Grant SWEEPiOhui rasheed [employer] Phone: Fractional Shortening 2D 28 % 28 - 44 % [employer] Work Phone: Interpretation and review of laboratory results Abnormal [employer] Work Phone: IVSd 1.3 cm Abnormal 0.6 - 1.0 cm [employer] Phone: LA Area 2C 26.6 cm2 [employer] Phone: LA Area 4C 25.0 cm2 [employer] Phone: LA Major Wilmore 7.3 cm [employer] Work Phone: LA Minor Wilmore 6.9 cm [employer] Work Phone: LA Volume BP 78 mL Abnormal 18 - 58 mL [employer] Phone: LA Volume Index BP 30 ml/m2 16 - 34 ml/m2 [employer] Phone: LA Volume Index MOD A2C 33 ml/m2 16 - 34 ml/m2 [employer] Work Phone: LA Volume Index MOD A4C 27 ml/m2 16 - 34 ml/m2 [employer] Work Phone: LA Volume MOD A2C 84 mL Abnormal 18 - 58 mL Bon [employer] Work Phone: LA Volume MOD A4C 69 mL Abnormal 18 - 58 mL [employer] Phone: LV E' Lateral Velocity 11.30 cm/s [employer] Work Phone: LV EDV A2C 74 mL [employer] Work Phone: LV EDV A4C 102 mL [employer] Work Phone: LV EDV Index A2C 29 mL/m2 [employer] Work Phone: LV EDV Index A4C 40 mL/m2 [employer] Work Phone: LV Ejection Fraction A2C 57 % [employer] Work Phone: LV Ejection Fraction A4C 52 % [employer] Work Phone: LV ESV A2C 32 mL [employer] Phone: LV ESV A4C 49 mL [employer] Phone: LV ESV Index A2C 13 mL/m2 [employer] Work Phone: LV ESV Index A4C 19 mL/m2 [employer] Work Phone: LV Mass 2D 279.8 g Abnormal 88 - 224 g [employer] Work Phone: LV Mass 2D Index 109.3 g/m2 49 - 115 g/m2 Bon S светлана [employer] Work Phone: LV RWT Ratio 0.44 [employer] Phone: LVIDd 5.4 cm 4.2 - 5.9 cm [employer] Work Phone: LVIDd Index 2.11 cm/m2 Bon [employer] Phone: LVIDs 3.9 cm Bon [employer] Phone: LVIDs Index 1.52 cm/m2 [employer] Phone: LVOT Mean Gradient 2 mmHg Bon [employer] Work Phone: LVOT Peak Gradient 3 mmHg Bon Se cours [employer] Work Phone: LVOT Peak Velocity 0.9 m/s Bon Se cours [employer] Work Phone: LVOT VTI 14.4 cm [employer] Phone: LVOT:AV VTI Index 0.78 Bon The [employer] Phone: LVPWd 1.2 cm Abnormal 0.6 - 1.0 cm [employer] Phone: MV E Velocity 0.53 m/s [employer] Phone: MV E Wave Deceleration Time 156.0 ms [employer] Phone: PV Max Velocity 1.0 m/s Bon SWEEPiOou [email or web address] Phone: PV Peak Gradient 4 mmHg Bon SWEE[employer]o [employer] Phone: RVSP 22 mmHg [employer] Phone: Sinotubular Junction 2.3 cm Bon [employer] Phone: TR Max Velocity 2.17 m/s Bon [employer]ou [email or web address] Phone: TR Peak Gradient 19 mmHg Bon [employer] Phone: Bon [employer] Phone: Cardiac echo study Procedure on 02-05-2024 [...] Image quality: adequate. No contrast was given. [facility] Radiology Study observation (narrative) [facility] Coding Summaryon 10-25-2021 Coding Summary HTMLBase 64 PpnzygdaFZb3nLh+PGhl YWQ+GS1ZOCQtM73cuROz nN7ZF4cKZM2QBKXLPQTS AQ1LXQ2nzMZ5XNitQ3Tp biAv ZqtcsNFhME04AXm6RRO5 hDyjVCvtkY2qjYKhY9l0 WnFuKS46lP59LTbsHQOy GdA1UaRfhiqfuJVc M9uhRbMliPHyWma+PHRh YmxlIHdpZHRoPScxMDAl DtPptSviEA0aYe2nQBIo LWNvbGxhcHNlOiBj v7xqVVKlEXtpET8kjFqr W0MtdOY9NLYlt8p1Rs59 dHI+DTNrQIJ7iJodDCuo s913StIvp9egRUC1 sHSiDBveSPZ6E36hv0A2 VBBaFSDzQXN2uRL0fM2o dLdrdbcnZ8VdfTYbRaT0 CRS1rKWmmM0ibLxf bfwagK2xHji+G09XGS9G XXZRFM4HIqw0C2TkKleb dHI+HP49JBZtUN37tAPd zEHjm5lbgNn8VcSt UZBoSQJ8fTpaIKiug1Zz YVPaQ32weIDxd7I1GMYe wOdamLVlAoBubSY6fN5v DDvsrrese6pyenlj Ehytg6ulpo81xL21F83s TDvvAPBwBKF2FGTjDWWg mAvqdj5lcL1hXt4+IDxj v5vzc9adpPe0ItBr VMPmybHhiAcyEHN8z4Wk Ur61H6ZeqJjtd5FmKhf3 ot38gYYva5P2mLU6JMyd UDYtiH3dVMxgTxO2 CBJoTwApiT86vGBwJIaj Gz9ojWoocTbgZZ5rJCSq edyaFGAkmK5rHHRkwZIv cHtjIF1xAHHbbtyc t967VgTqVSS7FWWtuYDu F6UqqW9nQyBdGWNdVBCi R6JalFZgNTdpE038KRfy NqR0XNPclgEjY2Ka SMEdwPxrYiQ0e5E1Sd2F f8NugunjAYH8LViyDDO6 WtAqPbHpIlC9Q0VoWmu8 UTDlzGekBN3jP3Pr WOZbbtygcdootET6QXXy TCIrpM05jUZpSBuxVd8t d1P4m040JMZkVOPotM53 Ut8tbAjaETSlkODV qO0pkmnfm3etrcqxIdGr SEIdVNm1SSi8IZNsjNtx ZjSiFFU4BxP6WQP7wAQg eT0kvIwhmjzoaO5w Oyc+P76zhA5sCPM7DUU7 lmiqIRDcadMuAO59IX17 G8HuAnzbqVJzkLL+PGRp dxIijQamYU0fJxPa v3bqo2QkKLjmV6NaSSKv WOjhEaj5GTJeQUN6iBG3 rK9zSBMvLXctt5W1mKS5 M4MideEruf7jo9qf WGVoRWwqC55sfGHea3J1 ZRFswFM2YFSuyZdvMjOz jK60Etc+SLWgwIswv4Ma Jywfs5oye7pzhMa6 IjMwJSIgdmFsaWduPSJ0 h6UhTh25E17vKAxlOEMg MVPqLYKvHHXmyTmbwu8t mC1sMb6+PGNvbCB3 lLZ5iU0eCMJjMnN8FOll S412QmVmsQWzDnzzs5ay l8apcRi6WsRiPGEashUg pOelCJL6v6HtPq27 F47qDTznBQTqQHZzEHTz DPGcuRbiio0ugK7kOu1+ IK7ne3pkqc23qQ78yKE+ IJEhDKS3xBsrLEge FPCuyK5gTQqhBlF3NYWs ZyUivO60uRKqDMirQe2u pXeleUjyTZ2jLRAujkrc t795NsIwe5tiZVMy xSFtCDuvOXK4N06an1V1 AVLsIBOdRHW2qVV4pE7k bGlnbjogbGVmdDsgdmVy mVdgFTqdSRhoS529 IHRvcDsnPlBhdGllbnQg AkMqNFh5V5SsAeo6TGKz jMvjAY7mlAYsVGreKx4a xWrzrGkkWC4pMMBd ttnvb090ZaBjw1ruPDIs gZNlBPcdIXA8U63tf9V2 TMNqEKDbCTC1nVZ4nS6o bGlnbjogbGVmdDsg yfBkhXjcGCweBChbL540 IHRvcDsnPkJpcnRoIERh wYG7LN33JW62sZZfg2V9 xIV9W0AoEQHohwoy ebsbeOP9EQIcXHJxnX02 Vi8oiCnqUw2wQHHbQJX5 LVEkkNIwA5ClvO0yKiNa PYMiYVUeV0XnoJKi WMqpC811CBefGfP4BYAk yjSkQ7ZdETBucMytQhX3 c2W1Zo6TX4N2HA28RK76 lHAxp0T5cIU2B7Mm JGJnrumlxepijZJ2CIJg ZZClpA82Le2peIgdMy4d QDWzNAW6QDGdcDBtY8Pg wB2qGfGmGDEvBQOd X0VltVDmDOphG830WEcb ZhO2RPSmwfJiE7VmWSYu tQfxKkT0d0Y6Vs5ULRr6 XY73ZL71oVRhi8F6 xWK2Q0FvCDAwyuiooinn kVJ6CQYlLAUwpB88Jk2h zQhrDe7rSYEuWCR3LGQh jZUfD9RaoY7iYrYk PCVsCAVkF8IjiAAaOEtq B177HOqdDiL1TRHczlBg U6ToCOZbbGfmZaF2e9X6 Wz2GPUPvGN18YUC7 zSY5EQ63BD56H4OsXsfc dGFibGU+PHRhYmxlIHdp ZHRoPScxMDAlJyBzdHls FZ8zGf3hJTWaWNNs wIjswDPgOgSvh7flFTNh GYpaMK6uzAvfM7IchYK3 FDUzk1h9Tf84H42gE5Fj dXA+UGWrsVO5rJR5 jC8hYdEsGsO7ISiwC290 HfPpxQQgTtcjd2ooz9lg jJs2UpA4JOAinoGlpLam DUF3q4UeZq37H62u IHdpZHRoPSIxNSUiIHZh mIgbqo2knY8kEd4+PGNv aDK2yPM1sU7aSdEwBwP4 YLehX993RwOfcWRv Dvryq1bag6rvtTj6AoIs HJUelaCndGilAHF8e0Cs Hx06B4PilTcwa6YaTxe2 cj50gGYxa7P6bHC6 O7MgFSCqgmlveWPvcMor IO3xLTBoexsoMQIwaP3w UPItZ4w1PiNvMsQ6CEuu R9DpfpB6MWYtgVFs JFxgTNQ3Q40vf6X1BDUe LOTiCKY9hRD9wK0kcUik bjogbGVmdDsgdmVydGlj LZolYJfcH846JJCz xMsnRFQtrA4eNQZiuKVf yCooAL4tYMLgzzegZliP QkVSTElORywgTEFXUkVO V4FeIBubjUY+PHRk XOM3qIpjKOuqPBEleY0z CJPxP1f7PxUzUjO5UPyv W9NhXNWtzccfGz29hL7m PkYqXkU0FFkmU8De gnS2KNYxaGGrCQmgXAM2 R08kb8I1EZWjVEMrAYE9 rIV6xX7dfQwhiumcaOBm dDsgdmVydGljYWwt AUcfM656LKUjyPvmUlX1 OnUiSoX1VOv3K5XsUgq7 QZXmiKmrBB4ktOMzGXgt Ul7auBmgmJotCU5x FSZliyvzHVXmnW1eALQm bFSzxHbyLG8iBJOjatvj w213EeGrOQB1TOAknMEa X8RfxW6eTmObGKEs RPDzI4UmhEBuDPvhT681 UFceUdJ8KFHlkxTuL1Bt IUCncFccGnI4o7K1Pk46 MyBZZWFyczwvdGQ+ GCCsRKQ9mJleWPmwWOAj vY9yWZUqE2c0AfMlRgB3 CYctZ1NcUJEzsogrYs36 rO2gBrEcNjF6HRwx X9YqriA1VKZhcZNbWXhz TTM1Z68eb7Y9QUJpQKCz LMJ4dQI6oH9vkXaqhccm bGVmdDsgdmVydGlj DApuLHubX202SUDceRyu Zk6MMXK3H0AdUow9VZHw fMurPY0stWUiGDxfEf5c eUqtvAawKT6fIEUf esrqOWBejH9cMACpyVKl cAvgNG3qMVMggcgdl192 YoBdFRI2SAChdMFmK4Ig sK2nMlVdAEQxDGAz H9HyaZIyOYclS015BZmg KuC2ZCVmedEeA5SbBOLd vXopPqT0p8C1Gb5WRFcb dGQ+BY94ai57U0Qr KrcqGaq7AUYrIEY5xFL6 pL1mZZWmVLgdl6L6aVF8 W5VbewWlej2sj9ssBGWa CNkuL66cdIFli2P5 YYUaxZP4CRLqoAqaDjCo hI01Uuv+AZEwiZsbq6Bx Fpblg5fmp9skoPu3ZzDs JSIgdmFsaWduPSJ0 b8IoTw81X87dKRiyXRJm PPYcENFeITOlyDjmnu7t oW4jOq3+FIIlcBA0tPL2 rS9zUgYvZzR1UUpf H419GgNqgKQsLrhyd4dt m4zoiTo6DyJsGQXiqfMw kRbaVJE4q8KlCe13A1Lp bNdwz8VdYtj1bx32 oXTma9C6mXD3O2EgXPIl uiltgPFklHtgQZ0cEKJl lxfaXQOewV9xWIPqO8p2 DiZpTwI8JTlrM7Db wmM3SFSpnLScKQJrvHEG yB5dklecr7rwakxdQrXe VNHiMOz7FBx9GHSjaNfs BgVcCDO6AsT4YTI2 wMEhjH5kxOjkyrcoaC5o Oyc+GTx4w4rltLRhFF5p aDZ9WD93LT24iXUvm9T4 wNL8L7RlNJRmwjbn vfiaiOF0WCUrSGYhkJ70 Ds3ufIrsAj8vZRXfTUV4 AAGtzAXeC8LerN8bYxCf EGHpEPHuE7EshGNu QOtwE544TLtnRwM1ZUYr lwLnE3CsVBOgdWhfWvE5 o2F6Hg1WCP57WX65OM58 jPKqk6M1aBR7O6Qp VQJyvwmlypmfvFP1MHXm YNDmsN71Ue1yuQufEy1t VZXwPUO6LSMcnGKhZ0Xl xT3vAxFaOGWnCVSa E7DgfZPnUAeqC809OWzr QkJ5UQCuloRwT1TcENIg tCowZeN5e5W0Nm0CKg28 CG96HV93jHEzo9D5 rNH4O4TfOUFmyzwtrmdl lIZ9GBUqSNTshL65Nu3j qQieSo1tYQBvLYM1VGVp oOGtD3EpnN0lMjVs KYZjSKIcD8DnvYYsQIqh Q849BEovEaD6UTXsbhFp O6XcTGVfoAxcHzC3q2H3 Ds9SUSnajya3W5Kl PjwvdHI+HB01BHFvRT08 jIJfcQNwy7dgfQt0MxZt WMZeOOR8oRfrUFaqq9Mc TJQxT03eoKDit1W5 IGN (more content not included)... [facility] Coding Summaryon 10-04-2021 Coding Summary HTMLBase 64 WlftncuaBGy9sUk+PGhl YWQ+VM1KDQMdV70apBUm mZ8QN3sUNO1GLRMPTVAD VE9DIY0wyGC9JBiqJ6Vc biAv MrapdKExKA08FZs0JAZ7 aIlqUJbsnT5qlRSuG1d2 UiZpZQ48eP29PCvbTSYc FxJ0DwYmdtkqqQEl V8vmUdEboRQgJrc+PHRh YmxlIHdpZHRoPScxMDAl LwKoaNzpAU3uOi6yVJEb LWNvbGxhcHNlOiBj r7cwHOZyWCmhMY4jsVpv J2KslER4FVBne8n6Eh44 dHI+VELbKAT7mYocFQfu v457UzWgy8oaCWE6 nNGuJLbiBSI4J66gc2V1 LXAkTBInDND3hPR4yY1l sEsaagrhI8HyoUTbLwO0 OBL7hWDcdQ3gpEsu fnndzZ3dZwz+R80LEB5Z GSQGNZ5QHgr0W1GuPvzn dHI+RK92CTLvMO71xDYa kPDjz1uxqDh3VlXh KGUgKHS2pAlpTEaye7Rp WSHhB07wcBFai5N3GCNw zZsguOKsSbVipDH0iE6j HNdbbhtzg1fdgqsj Ipubv2veom91iQ61H98f PVfpCGAsTQD0XPNaLOPz pDaleh6qcK7bJf4+IDxj x9yro3hjqDf4FfKg MQAvizAbwGjvRGG4r2Vk Qw67A2LpsSgbq0NnEtr0 ym08vRUjq9D7qFY8XDst XXIodX4aFIlfLhH6 LENqYmRbeC56kVDmMYbq Pb1alWzfrTarUY1zCIJc xwzzIMOpzB0jQYHccYKn nFlqSA5fTDMrftif o169MsIoHPO6DXOrsLOh E5RuaA4iSdLgXSZcCAJh B7GqyXVqDEexK620YFeh LpL6KRXhzdMnD4Yi IOMmnBwxCpF8b3V5Tr9D o5JdcjuqWEW3NRxcTTT7 LsTxZkKxWwN8H8KoBsm1 PGVcdSqpPB9hK0Cu AOIjkjbtmvnjjSW0ELGo XRVorT72nHGsJEsnHi3s s3D2q993PQKhALKpqD95 Pr0twWwvSNScnOTF iI8heywrt6ahsqmlTmFd CJRnNLf0RLp0ZWJnzWcd XlQqDJY3FeU8XHZ2tBXc mQ5znJnnmbyunJ7w Oyc+O49avC5pBSU2MUN6 xndkDCKandEdVC22IM07 L9QjRaafdUXnxTM+PGRp caGllDtdJC3jLaLk g9nlk7UjIElyX5WhDABv CLkgHgz3UVYpTFX8oFB8 kK9bJTXgZIuoe1A8gWK9 L8ZvmxCxdi2ik9ih PXQcNJueH58yyDVrt0K8 XUQijPO4OGBbwUfkJiUp aI85Tgg+MWKesTueo1Wo Rfjap5hyz3llpBp5 IjMwJSIgdmFsaWduPSJ0 j9EeDm53W43hVGsfAEDb RKXfRJLzDTFmhLbtuj8e sR1zKs4+PGNvbCB3 cTF2jC4fKGIjUvP1BUiq H119FcTkxNIhAoqeb9dl a2ucrIl9ZoInJMSmcsZc rBkwIIF0j1GqDi23 M60wBUrvPEAkJIPpWUQq ASDuiWoepn6duK6kKg2+ CR6gf9thex85oM34eWP+ XODnOIF6wRtfKDzx ZSNanO4bEAmkFzO1RELr CbZgvD48nKUzPOikMa9z nFdvmHnpGZ5ePNSfmxli g833ZgPje4vvGAUr zAWvLZhaDUC8G36ii2E8 ERWfUNJlBXX8cIJ8aG1u bGlnbjogbGVmdDsgdmVy oXbdBYuaEOybT517 IHRvcDsnPlBhdGllbnQg SdQnREn5Q8EjKzk4OSUl rNxbBU1ppVIbXZsvVo3e rWyjvVveUO0lLWGp wbfnk692CkLvb3jcFEBk oYPbRCnsMDD2W83dw6L7 YQEpDRXkWFC9uIP9mU9r bGlnbjogbGVmdDsg gsVygSlzTKstLMyuN676 IHRvcDsnPkJpcnRoIERh yXP4OS51BV34rYDny9J2 bEF5W7YfRRNzwcnf omlzmEM2EBUsCYLzzT79 Ma1lhNxiAw2fYKXuBZC8 VWAsbXQqG5DflB5dTuBa EFTnVZQsJ3XfsZEn CXffT642NVrgTuB3OYTk lfBuD3PyRCMmwKdoSuG9 a4K5Pn3GA9W8XJ12HK95 sRDhv1O7mWW6B7Jc VEGmukbnstwysEL7GOYc UPDwuQ54Nq7hxEfaMe3n HBBlKIC6IWFskGVlF1Up nB4cZqDgMHLxPCJb I3CmpAUiOXapL035ENac AjT6QBRrjwRzG6BtYYAh gShaPwS3h6Y0Qw5WMPh1 WQ82BC31tEIsi4S9 tEN2E9PuELIbsylwnujr iSW0TTTbDTNfsC44Os2b uGotOr2tYFNzCFO5CWUl yECkJ4XxaD5yTbOb VXGuTHVgL0JssRDgJIpn H537XNzbOcG8EDKcelGp R4IrXMGmsVbtVcS9p1D2 Ft8AXXAvYE90NJI8 iKM5GE24LT31X5EnEqao dGFibGU+PHRhYmxlIHdp ZHRoPScxMDAlJyBzdHls AG5kXc7iJHPnOTZt bLjtgXZzUoPfl6mdXBAj HEamHS2pvEjeL4QcdLC2 CYZvv7q6Wi49J17iY8Ba dXA+LXEagLP0kWM9 iT9tRpEbYvP7RAbyL859 FuWvjJGxNhpzo8bqb8ur jDw4UxI8IETngqJofMkv TET5c1OoEn43F15i IHdpZHRoPSIxNSUiIHZh nRsokl7cyY5rOf2+PGNv gCH7uYP7cB4wFrSzOoB4 RGixV762SjQbvCDm Ugdzx8xsu2omcWp2YzAd UGDpttAitDvdPCP7s9Lh Bx61U4FwvUarf8PkZfc6 va45hODlm2B7gVX8 F2ZyKDVbqqmrvXJyaJvt KY4tZUXfxtjqOBHxrA8k WOHiU6q8CxBcUtQ3BFaw Z0LzvgR7MRRlwVBi CWgnXGZ8Z91cq3K4DCOv IDNaIII4wCX0eD9vmKhu bjogbGVmdDsgdmVydGlj ODxhCZydE231QFUz bWcsQMZujW7wOUJurSBh dAcuWC8jZJVmqmcoXdbT QkVSTElORywgTEFXUkVO K8GiWAsixMC+PHRk BGT2iWcwTIokCUNgcY1j THJmZ2a4FhUrAvE8FCdf M2GlDXUgoccdNc61uF6k DoAgSzB1YMusK9Ja yrW3GJDgkZNtKFyjQZF1 P21uu9V8LMMkHJJuCSF0 zLB0fO1fdUwcptaixLFg dDsgdmVydGljYWwt XJtwG055IQAecVhyOjC6 LrUzMlU8HEk6U0HgWdy0 ANPniShiRV2kvUHkKGkk Yu7vnGevzFctVF2x UCTjihlcKYIqjA8kLHPd yVAfrYmyAK0zPVSjokjh q041HsKjXKX8THSccXSw F0KshD1jYqDnCQQg HWAeR2NeyTNlCUpfX508 WUhtWoV2BHOumaCrQ7Ix CDQmhCdvOpM4i5A0Hm82 MyBZZWFyczwvdGQ+ DIBmWEH2xGklTUbdAIHh rU5gBDWdS4z5WmDuJnZ2 YBkeM4ApKZWhmkgjFi10 sF0qVxNzXgZ4MEmd K7EhipB6EKPuiZLtZBmo BGA0B62dh6Z8JMZoFWLz KDC8dXA0aV5nwEoybbbk bGVmdDsgdmVydGlj AAhtKUbiY429XFRpqXtm Ab0DDSO9G1BsLbq4AKTp fOncEO0lhKTvUGoyJm2d rWbfuDkbDF7sBIJw egimRGEgwK8iXZUsmNRk fDzvMB3wFRWvdavzr851 AoPkTTD6IBEwmFGsW5Jr bM8rLjSzDQIuBSBg W7CksJGsHGusZ513OHci UwI7IFKchxIpO4JjWZQz yKuuKaO0m4L2Al5WPoPe cnZhdGlvbjwvdGQ+ KR85nx49C4MgAngyTjs7 BIZkXMW9cVR2eO7tEPDt TYnck9R3jWI4K9TaedCp gl2oy8xtOFVkGNeg A68pwZExw0Z6NZXeoSU2 KGFxiVliMxZseL05Ipj+ ZVCloJiee0PlSevlm5ve e3wwsId5IoEmNXCj omLfaXqtJQI9l8RiLg82 Z10nPFexQADeXAKkZHJt VNFvjXbyhr4uzY4bIj1+ QTJjlFY5kDC2tH6m AuWsYdW9ANidO257BkRu wUIcZpjhs2vqb4nufEt7 IjIwJSIgdmFsaWduPSJ0 w0QgSc22F0VuoGzu k1PhXbb2nb21gULcb8D3 mTS8K2ZeJYZmmnzsxTLn jIryYA6sROXpjjlwVZMx bE2uZFTbW9s8YtWw HbQ1NHpyO9ZqogB9VMHu gEWsAEWedFODeV6jrnwk d4durzxgZiEdOUJtCCw3 GSv2RRHhuTiaRsPy RBY2QbM7YPQ0dQHehN7b iSddnrfggT1rYoe+UGh5 q9ccmKZnWL5mfLD3LK41 YX42rUBqi9X1bHZ6 X8HbBHDyvfawqsrwkBD8 ARQmDUOdhV05Bz0qcLie Rv9nEINgRUU6CZZibSJh S3GkdL3uSgIbUALr DCAzR9YlfYTqALjyR059 IQrhPuU5YXHxjaTaN3Yd PKQdfLweSmZ8w2D4Da6Y MT94BP59ZE70oAHk g0B8kTT7Z0GlXXCblxlk xqxbmYN8UPGpTIIitB93 Mu6mjHquHe8dEZEeBAA2 FRQksBDdB7HgsV8g RyBaBKFwACAfL7WciWPa IOxoA816KXjgYfZ7WXBs fySsF4QpWLNbcLktUhI6 o1U8Dx7OCi46GH59 FC71zWZde0Z9aSQ0S1Kr ZAHiftziyodvtTR7QWLi TDImgC03Lr4euUtaJy0x GLRvNCM0FQArfXFq B4UwjK6uGpHuKMMaHJWj J2LwaYQtRGwkE921FKho RwQ5NFUzwlLsQ7BiJZCy rGefXfR5e3Q0Vo6E IHvhpou5I7JpZxossUZ+ ZD42MBKyAW32lUUwwJXu v8xayBu4VlCoVWHqFTN9 bEkvWLxap9GtTJQe Y29 (more content not included)... [facility] Consent Formson 09-23-2021 Consent Forms [id number] [facility]-20-2021 Consent Forms [id number] [facility] Postoperative Recordon 09-20-2021 MAGR Postoperative Record MAGR Phase II Record Summary Primary Physician: DAVID AWAD DO Finalized Date/Time: 09/20/21 10:05:40 Pt. Name: SINGHZAINA D.O.B./Sex: 1950 MALE Med Rec #: [id number] Physician: DAVID AWAD DO Financial #: [id number] Pt. Type: O Room/Bed: Formerly named [facility] Admit/Disch: 09/17/21 08:03:00 - 09/18/21 12:10:00 [...] Signed By: Vianca Celaya RN 09/20/21 10:05 [facility] Outside Recordson 09-20-2021 Outside Records [id number] #[facility] Provider Orderson 09-20-2021 Provider Orders [id number] #[facility] Orders [id number] #[facility].00[facility] Telemetry Stripson 2 Telemetry Strips [id number] #[facility].00[facility] Electronic Messagingon 09-19 Electronic Messaging --- --- --- --- --- --- --- --- --- From: Ej (Jim)Ej To: ZAINA WINTERS Sent: 09/19/21 04:18:10 AM EDT Subject: Discharge Summary Ready to View A summary regarding your recent visit is available in the Documents section of your Health Record. Normal [facility] .Auto Diff 1on 09-18-2021 Auto [place] % 9 % Normal 1-12 [facility] Comment on above: Performed By: #### 1 [id number], [id number], [id number] #### [facility] (DEFAULT) [address] [place] [address] Baso Abs# 0.0 x10 Normal 0.0-0.2 [facility] Comment on above: Performed By: #### 1 [id number], [id number], [id number] #### [facility] (DEFAULT) [address] [place] [address] Basophils/100 WBC (Bld) 0.0 % Low 0.2-2.0 [facility] Comment on above: Performed By: #### 1 [id number], [id number], [id number] #### [facility] (DEFAULT) [address] [place] [address] Eos Abs# 0.0 x10 Normal 0.0-0.4 [facility] Comment on above: Performed By: #### 1 [id number], [id number], [id number] #### [facility] (DEFAULT) [address] [place] [address] 25046 Eosinophils/100 WBC (Bld) 0.0 % Low 0.9-4.0 [facility] Comment on above: Performed By: #### 1 [id number], [id number], [id number] #### [facility] (DEFAULT) [address] [place] [address] 95529 Lymph Abs# 1.2 x10 Low 1.3-2.9 [facility] Comment on above: Performed By: #### 1 [id number], [id number], [id number] #### [facility] (DEFAULT) [address] [place] [address] 62155 Lymphocytes/100 WBC (Bld) 9 % Low 14-48 [facility] Comment on above: Performed By: #### 1 [id number], [id number], [id number] #### [facility] (DEFAULT) [address] [place] [address] [place] Abs# 1.3 x10 High 0.0-0.8 [facility] Comment on above: Performed By: #### 1 [id number], [id number], [id number] #### [facility] (DEFAULT) [address] [place] [address] Neut Abs# 11.6 x10 High 1.5-9.2 [facility] Comment on above: Performed By: #### 1 [id number], [id number], [id number] #### [facility] (DEFAULT) [address] [place] [address] 78791 Neutrophils/100 WBC (Bld) 82 % Normal 44-88 [facility] Comment on above: Performed By: #### 1 [id number], [id number], [id number] #### [facility] (DEFAULT) [address] [place] [address] CBC w/ Auto Diffon 2 Erythrocyte distribution width (RBC) [Ratio] 14.0 % Normal 11.5-15.0 [facility] Comment on above: Performed By: #### 1 [id number], [id number], [id number] #### [facility] (DEFAULT) [address] [place] [address] 00740 Hematocrit (Bld) [Volume fraction] 36.8 % Normal 34.8-51.9 [facility] Comment on above: Performed By: #### 1 [id number], [id number], [id number] #### [facility] (DEFAULT) [address] [place] [address] 18620 Hemoglobin (Bld) [Mass/Vol] 11.9 g/dL Normal 11.8-17.7 [facility] Comment on above: Performed By: #### 1 [id number], [id number], [id number] #### [facility] (DEFAULT) [address] [place] [address] 56153 Instr WBC 14.2 x10 Invalid Interpretation Code [facility] Comment on above: Performed By: #### 1 [id number], [id number], [id number] #### [facility] (DEFAULT) [address] [place] [address] 61372 Man Diff? Auto Normal [facility] Comment on above: Performed By: #### 1 [id number], [id number], [id number] #### [facility] (DEFAULT) [address] [place] [address] 94388 MCH (RBC) [Entitic mass] 30 pg Normal 24-34 [facility] Comment on above: Performed By: #### 1 [id number], [id number], [id number] #### [facility] (DEFAULT) [address] [place] [address] 22611 MCHC (RBC) [Mass/Vol] 32 g/dL Normal 26-37 [facility] Comment on above: Performed By: #### 1 [id number], [id number], [id number] #### [facility] (DEFAULT) [address] [place] [address] 17474 MCV (RBC) [Entitic vol] 94 fL Normal 81-100 [facility] Comment on above: Performed By: #### 1 [id number], [id number], [id number] #### [facility] (DEFAULT) [address] [place] [address] 50392 Platelet 181 x10 Normal 138-427 [facility] Comment on above: Performed By: #### 1 [id number], [id number], [id number] #### [facility] (DEFAULT) [address] [place] [address] 54350 Platelet mean volume (Bld) [Entitic vol] 10.4 fL High 6.3-10.2 [facility] Comment on above: Performed By: #### 1 [id number], [id number], [id number] #### [facility] (DEFAULT) [address] [place] [address] RBC 3.92 x10 Normal 3.70-5.30 [facility] Comment on above: Performed By: #### 1 [id number], [id number], [id number] #### [facility] (DEFAULT) [address] [place] [address] WBC 14.2 x10 High 3.5-10.5 [facility] Comment on above: Performed By: #### 1 [id number], [id number], [id number] #### [facility] (DEFAULT) [address] [place] [address] 24468 Electrolyte Panel Standardon 09-18-2021 Anion gap [Moles/Vol] 12.0 mmol/L Normal 5.0-19.0 [facility] Comment on above: Performed By: #### 1 [id number], [id number], [id number] #### [facility] (DEFAULT) [address] [place] [address] 03167 Chloride [Moles/Vol] 98 mmol/L Low 101-111 [facility] Comment on above: Performed By: #### 1 [id number], [id number], [id number] #### [facility] (DEFAULT) [address] [place] [address] 13286 CO2 [Moles/Vol] 28 mmol/L Normal 21-32 [facility] Comment on above: Performed By: #### 1 [id number], [id number], [id number] #### [facility] (DEFAULT) [address] [place] [address] 77582 Potassium [Moles/Vol] 3.8 mmol/L Normal 3.6-5.1 [facility] Comment on above: Performed By: #### 1 [id number], [id number], [id number] #### [facility] (DEFAULT) [address] [place] [address] Sodium [Moles/Vol] 134.0 mmol/L Low 136.0-144.0 [facility] Comment on above: Performed By: #### 1 [id number] #### [facility] (DEFAULT) [address] [place] [address] Inpatient Patient Summaryon 09-18-2021 Inpatient Patient Summary [address] [address] Patient Discharge Instructions Name: ZAINA WINTERS : 1950 Patient Address: [address] [place] [address] Primary Care Provider: Name: Jeannine Hurley After you are discharged if you find you have any questions, please, call [phone] ext [phone] to speak to a nurse. Discharge Diagnosis: [...] drug addiction problems; contact the [facility] 05/09 Crisis Hotline -Text 4HQXR sn 268137. If you received any narcotics, sedation, or [...] business decisions or sign any legal documents [facility] would like to thank you for allowing us to assist you with your healthcare needs. The following includes patient education materials and information regarding your injury/illness. ZAINA WINTERS has been given the following list of follow-up instructions, prescriptions, and patient education materials: Follow-up Instructions With: Address: When: Trenton Redd [address] [place] [address], [address] [place] [address] [facility] (1) 10/01/2021 11:00 AM Medications [...] to tolerance (more content not included)... Normal [facility] Pharmacy Noteon 09-18-2021 Pharmacy Note I have [...] [Verified on: 09/18/2021 10:36 EDT] Emiliano Montgomery [facility] Progress Note - Nurseon 08-0 Progress Note - Nurse Discharged to home. Prescriptions and instructions reviewed with and given to pt. He verbalized understanding. Taken to awaiting vehicle via wheelchair. All belongings sent with pt. [Electronically Signed on: 09/29/2021 14:49 EDT] Mildred David RN [Verified on: 09/29/2021 14:49 EDT] Mildred David RN [facility] Progress Note - Nurse POC discussed with pt. Educated on safety and ADL care once discharge home. He verbalized understanding [Electronically Signed on: 09/29/2021 14:49 EDT] Mildred David RN [Verified on: 09/29/2021 14:49 EDT] Mildred David RN [facility] Anesthesia Noteon 09-17-2021 Anesthesia Note Patient: ZAINA WINTERS Age: 70 years Sex: MALE : 1950 Associated Diagnoses: None Author: Eugene Castaneda MD Postoperative Information Post Operative Note: Operative Day. Anesthetic utilized: General. 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 Aftercare following left knee joint replacement surgery / SNOMED CT 316512312 / Confirmed Resolved: COVID-19 / SNOMED CT 2582254504 Resolved: Diabetes / SNOMED CT 174191221 Physical Examination VS/Measurements Vital Signs (last 24 [...] on: 09/17/2021 14:12 EDT] Eugene Castaneda MD [facility] Anesthesia Note Patient: ZAINA WINTERS Age: [...] All Problems Atrial fibrillation / SNOMED CT 15478559 / Confirmed FH: hypertension / SNOMED CT 014988941 / Confirmed History of post-polio syndrome / SNOMED CT 778075100 / Confirmed Aftercare following left knee joint replacement surgery / SNOMED CT 878727864 / Confirmed Resolved: COVID-19 / SNOMED CT 1608979863 Resolved: Diabetes / SNOMED CT 254971846 Histories Family History: CA - Cancer of colon Grandparent Heart attack Mother Grandparent Tobacco user Mother Father Brother Procedure history: Arthroplasty of knee using cement (903230969) on 03/02/2021 at 70 Years. Back (508969249). Comments: 02/04/2021 10:08 Oliva Van RN surgery [...] Oriented. Review / Management Laboratory Results Plan [place] [employer] Anesthesiologists#(A SA) physical status classification: Class III. Anesthetic Preoperative Plan Anesthesia: General. , Regional adductor canal block for post op pain control per surgeon request. Anesthetic plan, risks, benefits, and alternatives discussed with the patient and/or family. Patient verbalized understanding. [Electronically Signed on: 09/17/2021 11:19 EDT] Eugene Castaneda MD [Verified on: 09/17/2021 11:19 EDT] Eugene Castaneda MD [facility] MAGR Intraoperative Recordon 09-17-2021 MAGR Intraoperative Record MAGR Intra-Op Record Summary Primary Physician: DAVID AWAD DO Finalized Date/Time: 09/17/21 14:17:42 Pt. Name: ZAINA WINTERS/Sex: 1950 MALE Med Rec #: [id number] Physician: DAVID AWAD DO Financial #: [id number] Pt. Type: D Room/Bed: Formerly named [facility] Admit/Disch: 09/17/21 08:03:00 - Institution: Case [...] Role Performed Surgeon - Primary Anesthesiologist of Cuffing Machine Operator Record Time In 09/17/21 10:35:00 09/17/21 10:17:00 [...] CST Meyer PA-C, Matthew J Role Performed Paste Up Copy Camera Operator Scrub Personnel Physican Group Therapist Time In 09/17/21 10:17:00 09/17/21 10:17:00 09/17/21 [...] By Zhanna Urrutia RN Scrub 10% Povidone-Iodine [place] Prep Area (more content not included)... [facility] MAGR Intraoperative Record MAGR Intra-Op Record Summary Primary Physician: Finalized Date/Time: 09/17/21 10:39:41 Pt. Name: ZAINA WINTERS Carmen /Sex: 1950 MALE Med Rec #: [id number] Physician: DAVID AWAD DO Financial #: [id number] Pt. Type: D Room/Bed: Formerly named [facility] Admit/Disch: 09/17/21 08:03:00 - Institution: Case [...] RN, Brayan Altamirano Role Performed Anesthesiologist of Cuffing Machine Operator Cuffing Machine Operator Record Time In 09/17/21 09:55:00 09/17/21 09:55:00 [...] Signatures Signed By (more content not included)... [facility] MAGR PACU Recordon MAGR PACU Record MAGR PACU Record Summary Primary Physician: DAVID AWAD DO Finalized Date/Time: 09/17/21 15:19:58 Pt. Name: ZAINA WINTERS Carmen House/Sex: 1950 MALE Med Rec #: [id number] Physician: DAVID AWAD DO Financial #: [id number] Pt. Type: D Room/Bed: 229/1 Admit/Disch: 09/17/21 08:03:00 - Institution: PACU Case Times MAGR Entry 1 In PACU I 09/17/21 14:10:00 Discharge from PACU 09/17/21 15:15:00 I Last Modified By: Vianca Celyaa RN 09/17/21 15:19:57 Finalized By: Vianca Celaya RN Document Signatures Signed By: Vianca Celaya RN 09/17/21 15:19 [facility]-17-2021 MAGR Preoperative Record MAGR Pre-Op Record Summary Primary Physician: DAVID AWAD DO Finalized Date/Time: 09/17/21 10:43:23 Pt. Name: ZAINA WINTERS /Sex: 1950 MALE Med Rec #: [id number] Physician: DAVID AWAD DO Financial #: [id number] Pt. Type: D Room/Bed: [facility]/1 Admit/Disch: 09/17/21 08:03:00 - Institution: Pre-Op Case [...] Signed By: Vianca Celaya RN 09/17/21 10:43 [facility] Nutrition Noteon 09-17-2021 Nutrition Note Pt [...] with in house available Ensure Compact BID. [facility] Progress Note - Nurseon Progress Note - Nurse IV fluids stopped for good PO intake at this time [Electronically Signed on: 09/24/2021 15:45 EDT] Raquel Duvall RN [Verified on: 09/24/2021 15:45 EDT] Raquel Duvall RN [facility] XR Knee One or Two Views [...] MD 09/17/21 4:07 pm Technologist: Abilio AMIN [facility] Progress Note - Nurseon Progress Note - Nurse Pre-op phone call complete. Reviewed arrival time of 0830 on Monday09/17/2021 and pre-op instructions with pt. Pt voiced understanding and is without further questions or concerns at this time. [Electronically Signed on: 09/16/2021 09:25 EDT] Brayan Roach RN [Verified on: 09/16/2021 09:25 EDT] Brayan Roach RN Normal [facility] 2019 Novel Coronavirus (CoVI D-19), JULISSA LCon 09-14-2021 SARS-CoV-2 (COVID-19) RNA JULISSA+probe Ql (Unsp spec) Not detected Invalid Interpretation Code Not Detected [facility] Comment on above: Order Comment: [id number] Result Comment: This nucleic acid amplification test was developed and its performance characteristics determined by [employer]. Nucleic acid amplification tests include RT- PCR [...] detected) result in this assay. Performed At: [place] [id number] [place], [place] [id number] Zay Landa PhD Ph:[phone] Performed By: #### 6 [id number] #### [facility] (DEFAULT) [address] [place] [address] Coding Summaryon 09-14-2021 Coding [facility] IodnxfikXBm9xPq+PGhl YWQ+VM2OUKOkZ10xjGKl hX0VM1rTFE4BLICGQVRY BF5HCU4bfHA7BAieO3Na biAv QbvkwWPgVG09MOj9SWP3 xSayFFmblI3ceNHqE4i2 NySbGR67pI87SUfuHYZw VyM4HbHgsxnznIJg S7xeQoMvpRFbHjl+PHRh YmxlIHdpZHRoPScxMDAl HpMjuAxnGP5iPf5lXMZc LWNvbGxhcHNlOiBj p3hlFGZcHZzgPC8jgRfd I7HacXT8BEJyu7j7Fh90 dHI+FYFsGWP8lGllFRwu r249RlRpv4sqQDS2 aEAtKMilKKD0B60sn0A8 WDKrFHDiSXJ3hTU8nC6f fCnjnofuX5WnzBThHtC2 PFR4fYNhzJ3etElc cremgM7lSrr+L24SGD0A NCOVEM4EWrc6C3BeOqfp dHI+UX27LEXmLV29wAWi uDIzu5eizLm9UgQe MGBwMCZ1pSfhWMmbm2Ph HPQtA91riDAkm6L0WNIn hVmnsWObHtYxbIA8lY3n SPaklawax2twogna Ehhar9mmgf94cN84X34v DEmqMBEbYHI4APBaEBMn oEqrhl3ayI3pDc9+IDxj x2cla1zcrOh4ZxMx RAQqxvIkcKjrWIA9w8Kw Lg29F1JioEahs0OmCcq3 mh65yYSqu1A9kVC3LWnn BMTwwX8oLYknUzH9 EFHfUdAnnL25bXBbZEln Mm8ieZmcdIpiEB9oEJLi hfysWARavE8uEVTjtUIv qWvbDP4gIHGxeonb t511JkUcFOL7TZWisKVp K3OveH9yQqTuPJEaOTHf D1HwrZViSHqeH986TRch XnN2NDCblmYhE8Bu YSHtoQesTyS9p8Z6Eh8B q2QdaxuoHVF2KRwyEHX6 QwSgFrSjBpF3F3JwRbb2 POCmfByjJZ0uO5Wn MHHrxocojztlmQY2WUUt CFRyjM83dFPgOJzmRx9v p3E1u064JYFjZTWawD10 Pv8gsJruSCYlhCBC oT2rynbcs6auebkaFzJt QFWsBIl1UUb0XSKvrBww OgGoPWW6BeU9FWE1xNMe cZ1egGhfzubnrS5l Oyc+S14gsU5vKDQ5QTQ0 ciaeADSsnaQcZN94PT98 J3LfBttgwFCjpAT+PGRp xvKltDgeEJ3yWvVh c9mml3OtYSunS3BvHCWr XIotAdd0MPNeTDB2vFB0 jR0yYEAsKRbnu4W3oZE6 Y5UnahWgxv9cs5en MFZsHGqjZ61kaJYqr3J9 LJGhaBR1FZCmhEomAuMh uO65Gob+KYRnhWiao8Hq Qenfm4cxc6xqhIx3 IjMwJSIgdmFsaWduPSJ0 s9XeQo51U44fYGtmAMYm XUOfAFMjYXHjlQlahm7n dC7nCb8+PGNvbCB3 tSU0jC6hEOStWhY1NGxq I112LgLjxWGaLetly7ih l5duuQb0FuYmYOSomkWy rCpjTUC6q5NtHe97 B76zGKwuCNLzVPNtFDUv AWXvlIpilg6opM8aWs6+ LU7qu5amrb35bT70zXJ+ XGPvTQA5xRvuWLps EXDxxK1qDEjwWsF7NUXy RsFclT57dAEyPXwnDo1n tXhjlOzuNG6wKAQjratu g791IiPdt7rsVFWe pLGnMMbeXRN5B29at1X3 CVCbVMAcWQR4nUY9tC5f bGlnbjogbGVmdDsgdmVy eJsuCHnzTOfuR802 IHRvcDsnPlBhdGllbnQg AvUbSRu7N2AsJuq1STPz kYtaTS4xsFKoRLibGh6n jQpraWrjRD4bAGUy ogyhj894TgElu3vbFXTo zDAbDJneBDL1H36mt3F9 XHAxAUNbLVP4vVP1iH7n bGlnbjogbGVmdDsg siJubLqcRFnbQHppL631 IHRvcDsnPkJpcnRoIERh bKZ0TI61YU36yBRqo4I9 fAL2F7RpTQXmzqua isnnoVM3VWBkSWFdyU24 Xr9ywHtoJf8aTAXdNRV0 MHUiiJAbH3GaeU4jFmWj ICUtKSPoV6ZdcHYm VPgcA211RFzkOrG6ITDq snHlX4EoRRLuxImlVaD3 a8W7Bu3OC8U1EX21PC34 zIXew3O7mZF6S0Dv NFIrppfsjbhhgLM1YOQg SMVacI37Ev5zuTmhMy6o MFCrNWI0BJXyxDAfM1Eh mT4cCnViUKNbEXVg M6BaiKIwOGixV927LEdr EtC1ENZfpfPmZ7RmDTRu zEuxSgQ6s6R2Kw1ZORi6 BF28JQ49zKMuk0U5 nUA4F4ErXVDqvhkrqbvg fRR0IPUjDFFmnJ02Eq2h zSmfEo9yIGEqKUC7YDXi fUEcZ2XxtF1mEhVr JAUxXJDaD4WmeYLoOYex G211LLvlVjB5ZAXlupXa T3UiEGYhuQzmGrU2h0P6 Pe8AKWNzXG37FOF2 aLK4GV14KZ92P2KkGpdk dGFibGU+PHRhYmxlIHdp ZHRoPScxMDAlJyBzdHls MR3tLk7zPXJvITUx tPsywYFbSrSfd9myDOHw JKqyZX4anCqtE5JdgGR7 AEVqi5j1Oo45Q69aQ3Wq dXA+RTOefOE5vJP7 nW5jNqObCxF7ZSfrH607 RlGjvEDaWhhpg6wno7no iRd8OuM6QWVmnbUcdQeq CJF5v3YbSy28P72o IHdpZHRoPSIxNSUiIHZh mBfdck1oiX2hQa9+PGNv oDK1lGE3sI9dSiOmCsI0 XDxxS349YzBahNVd Whllm2gnf6amqPf3XfWp RUPuulGysUvqNOK3d3Jl Le23R3HrxFsiw9GgEcz8 jz91qFOzd9W7hAB1 G2LpQPVdvonzhQSlhBaz DX9oVJMeshhoVTBzvB5v GCScW5t5EiKfPqA0LEci O1DndmB0SJPbpWJo CHpiQRV9B23pu3E7NJDo LDGlJCU1bGK6hF4rdRki bjogbGVmdDsgdmVydGlj MXmhWMupQ907CTFn vNpkRCKsbF4wLEVpyAHj kEpcJU9nTRMksktvOpuP QkVSTElORywgTEFXUkVO I5CnQElurHZ+PHRk PWG1dZpwSGolDMZuyK3t TQHaN9f3DuGjYcN2NSsb N3LeVGOnvgjlJa00bI2r NdPgJgC5HKfaK3Yv zjI9MQAjuGEjHGaxUGT6 X69mv5O0IYReNOPsAXA4 jHG7tL6vmKqihidajWKp dDsgdmVydGljYWwt SCzsQ671HRIngFqiYwK6 FpQdReG7XFo2W0BeKlz6 PHUqiBhfFD6diIXeDEcz Uk8ayKjogCaaSM9u MOZonhfjEFDqeD4xEIXw zWZtePloIA5rKZHhsvjs o101ShJeUMQ7QGGosGNp C0ImlT7jZxVmGFCc OLGeJ6CgvEJpSTmrE739 KNzzGcB4IPVaifLfK9Eb HYDuhUgjLaY8a4L3Cq38 MiBZZWFyczwvdGQ+ OYBfCUB5xAggMFelBQKr iJ3cKJPnQ9t0BrIaYmF9 TCpnE4KjJNKgmiamCo92 zT3wZfIxQgZ6ASfw U7MfnhE3UBVxjGTiQCux GGB7H32yb6I7GJLeBVPk QSP8wAU3eZ2ajGkwmtnv bGVmdDsgdmVydGlj THgnOJkdP872WMNrlJsr Ss7YHQL7H9SqXtu4PTWo wZpkAS0uuRDjSWsqVi6v qScqzBfpMQ3lMXGo tnimAHKogC2tEBImdNJp lHqiWW0yJGDzcogqf734 PpJcYQW2BPUyrQMmZ1So dF4eCjXeCRDvOJCz S9TvnLRgYPabR842ICyp IxX6HYBksfYfP1AxQUGx jGicFoC3n2U1Hr8RVBgm dGQ+IH07bw83C5Bd ScqeOyk8QJJaTFD6gAA2 cY2yJMLfSYmhx6O4eFY2 C4BubpMsrt8tq5zjMXDa KBpxC02lbLXur6Y5 JCCpjBN0JSDrlYzfBoYd jR34Mas+MBYwjFxqk6Ts Lfayf1djx0nusNa6MdGs JSIgdmFsaWduPSJ0 i2KpRt23U17uYTxhJBFp DZRhZLZfYTLmoJihhs9x kQ0eJi1+VVOhzVG8tLD7 jD4eFfTsLiJ6UBzl D261RqWptRCaHpyku1pa y6zjbHa3LnOjTMEyigAi kNvgLNF2x6KwNf95A5Gq fIazq2CdApi8tf92 mQEyc6N5lYT4J1PbOZSz bdbljOHeuUirQQ4pEJCi tkqbHANvzF6tMFOgJ3n6 QwRoSbR9URzgR5Pj okQ5VFNedOJoXIMtyHZJ iN6egxeeb5xldihoBxMc RTAuMYs3VDu1INYvgFro VsLlBCK3KaJ8CCP1 mQCpzM9iwOuhcuagwP7u Oyc+TKg7m5hosLEpYB8j rSB8PO58KN81qSCfj3G8 hLK6J5TqEMFbmpnz dauquUK9NQGcWYYsjW86 Ey7uiDbsZb0tIIQwMUT9 OYHgrHEpQ2YqsT9xBeEz ZUJoVNMzG5DgcSSi GLjeA559NErmXiT5XXHx lhRxL3TaRQUwaYczCrW6 z2K6Sz4JUL89YL71KU46 cVEzt4W0kWY1H9Bc FKZwjupincxsrVC9GZJv OPJgvK16Qx6vtRmxGp5a JNHfUWM7RUNegPBpO7Ka eE9pRbTqZQYmSTAx I7SefVKaCLzkO403BXxx CcY9OSUbnvJtQ9FqJFNi rWiyCpS4z6F6Qz6JKy33 CF66NB36xBHsw0W1 oOU7R8TeYTRunuyqhfat yZM3AUWbWFEyqO85He8u tAzxGe7yBTEyTNS8LRFd zSUqQ7BeiD7mXrGx HYPyODRfF7IvjWBsDNuo Z024ABolHmO4TUXqhkPl D8LbRHYdhWmkIgA3h6F9 Sc1PAAhdyva1I6Sn PjwvdHI+AX25CVXvQV19 gNUyrQRgq4ypgVc8DzPz SIBlXJA6pWywEKcmu2Ez INZeO62nfTEzp3L7 IGN (more content not included)... [facility] C Urineon 09-03-2021 C Urine <10,000 cfu/ml [facility] Comment on above: Performed By: #### 6 [id number] ####[facility] (DEFAULT)[address] [place] [address] Progress Note - Nurseon 08-14 Progress Note - Nurse PAT chart for 09-17-2021 surgery reviewed per anesthesiologistDr Mccauley- no additional orders received. [Electronically Signed on: 09/02/2021 13:45 EDT] Rita Molina RN [Verified on: 09/02/2021 13:45 EDT] Rita Molina RN [facility] Provider Orderson 09-02-2021 Provider Orders [id number] #[id number] [facility] .Auto Diff 1on 09-01-2021 Auto [place] % 9 % Normal 02-24 [facility] Comment on above: Performed By: #### 1 [id number], [id number], [id number] ####[facility] (DEFAULT)[address] [place] [address]208 Baso Abs# 0.0 x10 Normal 0.0-0.2 [facility] Comment on above: Performed By: #### 1 [id number], [id number], [id number] ####[facility] (DEFAULT)[address] [place] [address]254 Basophils/100 WBC (Bld) 0.6 % Normal 0.2-2.0 [facility] Comment on above: Performed By: #### 1 [id number], [id number], [id number] ####[facility] (DEFAULT)[address] [place] [address] 12981 Eos Abs# 0.0 x10 Normal 0.0-0.4 [facility] Comment on above: Performed By: #### 1 [id number], [id number], [id number] ####[facility] (DEFAULT)[address] [place] [address]8961 Eosinophils/100 WBC (Bld) 0.7 % Low 0.9-4.0 [facility] Comment on above: Performed By: #### 1 [id number], [id number], [id number] ####[facility] (DEFAULT)[address] [place] [address] 14817 Lymph Abs# 2.2 x10 Normal 1.3-2.9 [facility] Comment on above: Performed By: #### 1 [id number], [id number], [id number] ####[facility] (DEFAULT)[address] [place] [address] 39883 Lymphocytes/100 WBC (Bld) 31 % Normal 14-48 [facility] Comment on above: Performed By: #### 1 [id number], [id number], [id number] ####[facility] (DEFAULT)[address] [place] [address]39 [place] Abs# 0.7 x10 Normal 0.0-0.8 [facility] Comment on above: Performed By: #### 1 [id number], [id number], [id number] ####[facility] (DEFAULT)[address] [place] [address] 17123 Neut Abs# 4.1 x10 Normal 1.5-9.2 [facility] Comment on above: Performed By: #### 1 [id number], [id number], [id number] ####[facility] (DEFAULT)[address] [place] [address] 85148 Neutrophils/100 WBC (Bld) 58 % Normal 44-88 [facility] Comment on above: Performed By: #### 1 [id number], [id number], [id number] ####[facility] (DEFAULT)[address] [place] [address]34 [facility] Standardon 09-01-2021 eGFR Non AA >60 Invalid Interpretation Code [facility] Comment on above: Performed By: #### 1 [id number], [id number], [id number] ####[facility] (DEFAULT)[address] [place] [address] 90868 eGFR AA >60 Invalid Interpretation Code [facility] Comment on above: Result Comment: Spa Director korina Kidney disease could be indicated at eGFRs of less than 60 ml/min/1.73m2. Kidney Failure is indicated at less than 15 ml/min/1.73m2 Performed By: #### 1 [id number], [id number], [id number] ####[facility] (DEFAULT)[address] [place] [address] 46691 Anion gap [Moles/Vol] 12.0 mmol/L Normal 5.0-19.0 [facility] Comment on above: Performed By: #### 1 [id number], [id number], [id number] ####[facility] (DEFAULT)[address] [place] [address] 97568 Calcium [Mass/Vol] 9.7 mg/dL Normal 8.9-10.3 [facility] Comment on above: Performed By: #### 1 [id number], [id number], [id number] ####[facility] (DEFAULT)[address] [place] [address] 88538 Chloride [Moles/Vol] 102 mmol/L Normal 101-111 [facility] Comment on above: Performed By: #### 1 [id number], [id number], [id number] ####[facility] (DEFAULT)[address] [place] [address] 43825 CO2 [Moles/Vol] 29 mmol/L Normal 21-32 [facility] Comment on above: Performed By: #### 1 [id number], [id number], [id number] ####[facility] (DEFAULT)[address] [place] [address] 24405 Creatinine [Mass/Vol] 0.94 mg/dL Normal 0.90-1.30 [facility] Comment on above: Performed By: #### 1 [id number], [id number], [id number] ####[facility] (DEFAULT)[address] [place] [address] 41519 Glucose [Mass/Vol] 109.0 mg/dL Normal 74.0-118.0 [facility] Comment on above: Performed By: #### 1 [id number], [id number], [id number] ####[facility] (DEFAULT)[address] [place] [address] 45435 Osmolality 281 mOsm/L Invalid Interpretation Code [facility] Comment on above: Performed By: #### 1 [id number], [id number], [id number] ####[facility] (DEFAULT)[address] [place] [address] 90874 Potassium [Moles/Vol] 4.1 mmol/L Normal 3.6-5.1 [facility] Comment on above: Performed By: #### 1 [id number], [id number], [id number] ####[facility] (DEFAULT)[address] [place] [address] 88513 Sodium [Moles/Vol] 139.0 mmol/L Normal 136.0-144.0 [facility] Comment on above: Performed By: #### 1 [id number], [id number], [id number] ####[facility] (DEFAULT)[address] [place] [address] 63478 Urea nitrogen [Mass/Vol] 21 mg/dL Normal 8-26 [facility] Comment on above: Performed By: #### 1 [id number], [id number], [id number] ####[facility] (DEFAULT)[address] [place] [address] 61931 Urea nitrogen/Creatinine [Mass ratio] 22.0 mg/mg High 4.6-16.2 [facility] Comment on above: Performed By: #### 1 [id number], [id number], [id number] ####[facility] (DEFAULT)[address] [place] [address] 00821 CBC w/ Auto Diffon 2 Erythrocyte distribution width (RBC) [Ratio] 14.0 % Normal 11.5-15.0 [facility] Comment on above: Performed By: #### 1 [id number], [id number], [id number] #### [facility] (DEFAULT) [address] [place] [address] Hematocrit (Bld) [Volume fraction] 45.0 % Normal 34.8-51.9 [facility] Comment on above: Performed By: #### 1 [id number], [id number], [id number] #### [facility] (DEFAULT) [address] [place] [address] Hemoglobin (Bld) [Mass/Vol] 14.5 g/dL Normal 11.8-17.7 [facility] Comment on above: Performed By: #### 1 [id number], [id number], [id number] #### [facility] (DEFAULT) [address] [place] [address] Instr WBC 7.0 x10 Invalid Interpretation Code [facility] Comment on above: Performed By: #### 1 [id number], [id number], [id number] #### [facility] (DEFAULT) [address] [place] [address] Man Diff? Auto Normal [facility] Comment on above: Performed By: #### 1 [id number], [id number], [id number] #### [facility] (DEFAULT) [address] [place] [address] 29548 MCH (RBC) [Entitic mass] 30 pg Normal 24-34 [facility] Comment on above: Performed By: #### 1 [id number], [id number], [id number] #### [facility] (DEFAULT) [address] [place] [address] 30031 MCHC (RBC) [Mass/Vol] 32 g/dL Normal 26-37 [facility] Comment on above: Performed By: #### 1 [id number], [id number], [id number] #### [facility] (DEFAULT) [address] [place] [address] 80027 MCV (RBC) [Entitic vol] 93 fL Normal 81-100 [facility] Comment on above: Performed By: #### 1 [id number], [id number], [id number] #### [facility] (DEFAULT) [address] [place] [address] Platelet 216 x10 Normal 138-427 [facility] Comment on above: Performed By: #### 1 [id number], [id number], [id number] #### [facility] (DEFAULT) [address] [place] [address] 51618 Platelet mean volume (Bld) [Entitic vol] 10.2 fL Normal 6.3-10.2 [facility] Comment on above: Performed By: #### 1 [id number], [id number], [id number] #### [facility] (DEFAULT) [address] [place] [address] 20556 RBC 4.86 x10 Normal 3.70-5.30 [facility] Comment on above: Performed By: #### 1 [id number], [id number], [id number] #### [facility] (DEFAULT) [address] [place] [address] 00891 WBC 7.0 x10 Normal 3.5-10.5 [facility] Comment on above: Performed By: #### 1 [id number], [id number], [id number] #### [facility] (DEFAULT) [address] [place] [address]7587 XR Bone Length Studies Scano [facility] 09-01-2021 XR Bone Length Studies Scanograms EXAM: [...] MD 09/04/21 4:45 pm Technologist: Elysia SIMONS [facility] Complete Blood Count with Au to Diffon 06-09-2021 Basophils (Bld) [#/Vol] 0.04 10*3/uL Normal 0.00-0.20 [facility] Comment on above: Performed By: #### C FRANCISCA, CBCAD #### [facility] [address] [place], [place] [id number] Basophils/100 WBC (Bld) 0.6 % Normal [facility] Comment on above: Performed By: #### C FRANCISCA, CBCAD #### [facility] [address] [place], [place] [id number] Eosinophils (Bld) [#/Vol] 0.11 10*3/uL Normal 0.02-0.50 [facility] Comment on above: Performed By: #### C FRANCISCA, CBCAD #### [facility] [address] [place], [place] [id number] Eosinophils/100 WBC (Bld) 1.7 % Normal [facility] Comment on above: Performed By: #### C FRANCISCA, CBCAD #### [facility] [address] [place], [place] [id number] Erythrocyte distribution width (RBC) [Ratio] 13.7 % Normal 11.0-15.0 [facility] Comment on above: Performed By: #### C FRANCISCA, CBCAD #### [facility] [address] [place], [place] [id number] Hematocrit (Bld) [Volume fraction] 43.3 % Normal 38.5-50.0 [facility] Comment on above: Performed By: #### C FRANCISCA, CBCAD #### [facility] [address] [place], [place] [id number] Hemoglobin (Bld) [Mass/Vol] 14.1 g/dL Normal 13.0-17.1 [facility] Comment on above: Performed By: #### C FRANCISCA, CBCAD #### [facility] [address] [place], [place] [id number] Lymphocytes (Bld) [#/Vol] 1.7 10*3/uL Normal 0.9-3.9 [facility] Comment on above: Performed By: #### C MP, CBCAD #### [facility] [address] [place], [place] [id number] Lymphocytes/100 WBC (Bld) 26.3 % Normal [facility] Comment on above: Performed By: #### C MP, CBCAD #### [facility] [address] [place], [place] [id number] MCH (RBC) [Entitic mass] 29.1 pg Normal 27.0-33.0 [facility] Comment on above: Performed By: #### C MP, CBCAD #### [facility] [address] [place], [place] [id number] MCHC (RBC) [Mass/Vol] 32.6 g/dL Normal 32.0-36.0 [facility] Comment on above: Performed By: #### C MP, CBCAD #### [facility] [address] [place], [place] [id number] MCV (RBC) [Entitic vol] 90 fL Normal 80-100 [facility] Comment on above: Performed By: #### C MP, CBCAD #### [facility] [address] [place], [place] [id number] Monocytes (Bld) [#/Vol] 0.6 10*3/uL Normal 0.2-0.9 [facility] Comment on above: Performed By: #### C MP, CBCAD #### [facility] [address] [place], [place] [id number] Monocytes/100 WBC (Bld) 9.6 % Normal [facility] Comment on above: Performed By: #### C MP, CBCAD #### [facility] [address] [place], [place] [id number] Neutrophils (Bld) [#/Vol] 3.9 10*3/uL Normal 1.5-7.8 [facility] Comment on above: Performed By: #### C MP, CBCAD #### [facility] [address] [place], [place] [id number] Neutrophils/100 WBC (Bld) 61.5 % Normal [facility] Comment on above: Performed By: #### C MP, CBCAD #### [facility] [address] [place], [place] [id number] Platelet mean volume (Bld) [Entitic vol] 11.30 fL Normal 7.50-12.50 [facility] Comment on above: Performed By: #### C MP, CBCAD #### [facility] [address] [place], [place] [id number] Platelets (Bld) [#/Vol] 222 10*3/uL Normal 140-400 [facility] Comment on above: Performed By: #### C MP, CBCAD #### [facility] [address] [place], [place] [id number] RBC (Bld) [#/Vol] 4.84 10*6/uL Normal 4.20-5.[address] [facility] Comment on above: Performed By: #### C MP, CBCAD #### [facility] [address] [place], [place] [id number] RDW-SD 44.9 fL Normal 37.0-50.0 [facility] Comment on above: Performed By: #### C MP, CBCAD #### [facility] [address] [place], [place] [id number] WBC (Bld) [#/Vol] 6.4 10*3/uL Normal 3.8-11.0 [facility] Comment on above: Performed By: #### C MP, CBCAD #### [facility] [address] [place], [place] [id number] Comprehensive Metabolic Pane chikis 06-09-2021 Albumin [Mass/Vol] 4.6 g/dL Normal 3.6-5.1 [facility] Comment on above: Performed By: #### C MP, CBCAD #### [facility] [address] [place], [place] [id number] Albumin/Globulin [Mass ratio] 2.2 {ratio} Normal 1.0-2.5 [facility] Comment on above: Performed By: #### C MP, CBCAD #### [facility] [address] [place], [place] [id number] ALP [Catalytic activity/Vol] 80 U/L Normal 40-129 [facility] Comment on above: Performed By: #### C MP, CBCAD #### [facility] [address] [place], [place] [id number] ALT [Catalytic activity/Vol] 16 U/L Normal 9-46 [facility] Comment on above: Result Comment: 01/13 Female reference range changed. Performed By: #### C MP, CBCAD #### [facility] [address] [place], [place] [id number] Anion gap [Moles/Vol] 17 mmol/L Normal 12-20 [facility] Comment on above: Result Comment: Effe ctive 02/18/2019 reference range changed. Performed By: #### C MP, CBCAD #### [facility] [address] [place], [place] [id number] AST [Catalytic activity/Vol] 22 U/L Normal 10-40 [facility] Comment on above: Performed By: #### C MP, CBCAD #### [facility] [address] [place], [place] [id number] Bilirubin [Mass/Vol] 0.40 mg/dL Normal 0.30-1.20 [facility] Comment on above: Performed By: #### C MP, CBCAD #### [facility] [address] [place], [place] [id number] BUN/CREA 20 Ratio Normal 6-22 [facility] Comment on above: Performed By: #### C MP, CBCAD #### [facility] [address] [place], [place] [id number] Calcium [Mass/Vol] 9.4 mg/dL Normal 8.6-10.2 [facility] Comment on above: Performed By: #### C MP, CBCAD #### [facility] [address] [place], [place] [id number] Chloride [Moles/Vol] 101 mmol/L Normal 98-107 [facility] Comment on above: Performed By: #### C MP, CBCAD #### [facility] [address] [place], [place] [id number] CO2 [Moles/Vol] 26 mmol/L Normal 20-31 [facility] Comment on above: Performed By: #### C MP, CBCAD #### [facility] [address] [place], [place] [id number] Creatinine [Mass/Vol] 0.7 mg/dL Normal 0.7-1.4 [facility] Comment on above: Performed By: #### C MP, CBCAD #### [facility] [address] [place], [place] [id number] eGFRAA 132 mL/min/1.73m2 Normal >[address] [facility] Comment on above: Performed By: #### C MP, CBCAD #### [facility] [address] [place], [place] [id number] eGFRNAA 109 mL/min/1.73m2 Normal >[address] [facility] Comment on above: Performed By: #### C MP, CBCAD #### [facility] [address] [place], [place] [id number] Globulin (S) [Mass/Vol] 2.1 g/dL Normal 1.9-3.7 [facility] Comment on above: Performed By: #### C MP, CBCAD #### [facility] [address] [place], [place] [id number] Glucose [Mass/Vol] 98 mg/dL Normal 65-99 [facility] Comment on above: Result Comment: For FASTING Glucose --- ADA reference ranges: Normal 65-99 mg/dl Prediabetes 100-125 Diabetes >/= 126 Performed By: #### C MP, CBCAD #### [facility] [address] [place], [place] [id number] Potassium [Moles/Vol] 3.9 mmol/L Normal 3.5-5.5 [facility] Comment on above: Performed By: #### C MP, CBCAD #### [facility] [address] [place], [place] [id number] Protein [Mass/Vol] 6.7 g/dL Normal 6.1-8.1 [facility] Comment on above: Performed By: #### C MP, CBCAD #### [facility] [address] [place], [place] [id number] Sodium [Moles/Vol] 139 mmol/L Normal 135-146 [facility] Comment on above: Performed By: #### C FRANCISCA CBCAD #### [facility] [address] [place], [place] [id number] Urea nitrogen [Mass/Vol] 14 mg/dL Normal 7-25 [facility] Comment on above: Performed By: #### C FRANCISCA CBCAD #### [facility] [address] [place], [place] [id number] Hemoglobin A1Con 06-09-2021 EAG 136.98 Normal [facility] Comment on above: Performed By: #### A 1C #### [facility] [address] [place], [place] [id number] HbA1c (Bld) [Mass fraction] 6.4 % High 4.0-6.0 [facility] Comment on above: Performed By: #### A 1C #### [facility] [address] [place], [place] [id number] Q - B-TYPE NATRIURETIC (BNP) on 06-09-2021 Natriuretic peptide B (Bld) [Mass/Vol] 33 pg/mL Normal <100 [facility] Comment on above: Order Comment: [facility] performed at: [employer] [employer] [facility], [address] [place] [address], [address] [place] [address], [id number], Behaviorist: Curtis Lyons MD [facility] Collection Date/Time: [id number] [facility] Results Received Date/Time: [facility] Reported Date/Time: FASTING: NO Result Comment: BNP levels increase with age in the general population with the highest values seen in individuals greater than 75 years of age. Reference: J. Am. Cheryl. Cardiol. 2002; 40:976-982. Performed By: #### [id number] #### [facility] [address] [place] [address] Coding Summaryon 03-16-2021 Coding Summary HTMLBase 64 FasvuqdfWWx7rNj+PGhl YWQ+BN1ERKEiK12aoATx oF7ES9lGZT6JWUMTTORG YD2XRB4nfVX7MMccS2Pa biAv HaisbSVzAA84VOe9SBA1 qRtcGQdshH2tsAOnG5q0 LbJdXM29fU05THgzPCYk ZyA4QwOldfnzjUWv X7lmYnYrvGRsEgc+PHRh YmxlIHdpZHRoPScxMDAl MpBbwPpuQS2mOq8lHSNi LWNvbGxhcHNlOiBj o1rnFXMsFShfWI4omEfx R6QmkJQ8LWIsg6x5Xe04 dHI+DBGlWYD6hNyfPNyn l161WbWox9saMNA0 xGNiZJpcICQ0N81et3M5 LPSdZIFjNAW6sRS4kB1d rNyszjvzQ9HqtQBwGoS0 YYJ2uXHpdW7tyLvx wtxzyQ1xNdh+D75YLL2K LHGWPE5NWsd6U3JhNfov dHI+MO87LNQwPA29tYEr kMTca2ivsJr3ZtQb DNNvAEM9vAavKXjid2Wn WDHgD07mnWXoo5U7ZUIq wLkvfMClUzUrmLD5pS5a CPbitpjht3gxgnrg Ewczm9gjkb38uQ19Y56y NXfpIVIrJQV9KENeOJVs vDldrm9vuM3pZa0+IDxj j2bmv0yyzZd8RtJr KOZnmbFioAapFOS7c6Et Kb86T7LlzUlgy8AsZaj6 zw68sGKhc5S0sIB9DDir CCAwrS6uZTgaSsF5 VHWiQvDdzL32aDFqHOkg En3wpZmqvMgePV4jSHRm phseKMIogN8xSDTlvZTw pPmnDC7gDEGiphyh n037PwAmFKE9WGQbrNMu A9VcjK9mAyLgDAJyUOKv B0FeqSAbYIbmC253IOaw JcA3LJSenhZkN6Nb FZWkiEtgHoJ9g6W2Ps2O k8TdevsjYWB9UIrcKGQx WlNmHwCvCdR4P6LmLfe3 ZQRdzDrlHP4iB6Kn DPNzntjrissdoXF8TYKx XERwiK64vBTiUTcxOf0h k1G4c987BJZmGOBfwD01 Ix7trLcrNRYbrYNR nP7oninrk6ixbrbjNtPy CZDdXTa7WGg7HTOqzTri RbVjIZI3KqD8LBO1dJNz wR6edIoeueebrJ1s Oyc+A91tlB7aIBG8QBX5 lxumEIUwtmFbME55RB81 B0JqIazniYBydKM+PGRp seZegKmjSC6fBvYf n0fzd5GjEYuoK9UrTJLq ZArrWwy8NFCtZQJ2dPC4 sR6pDVHmGLdca8T0lVI5 B8PuitNdnt6eh0rx DOYkHGilD72mmLJde1C6 KPKmwOL7AANszWeaPqWp qB70Ztw+ANCowWvjo1Hf Djosz3ipc7mdgTs8 IjMwJSIgdmFsaWduPSJ0 z5CcEf76D63eNWstEKPq KIYoNVWjZWFujNijsh1g kN5zUv6+PGNvbCB3 gBP6pJ3zIURqCiF9WOuw X214QbNdvQIdAowsl4ap s8gtdSl3KjPnXXRpspXx yObpUJG1f4RmPx36 J51yNRcjKBGqQHLxGNDy EHYqsChfpj4qhK6oIh7+ YV7zy6lqcv97pH15wWI+ TBZcUID7jAdrUHht LGAatT3nNFwhVzP9XQWw PdIraP32qAAcZUgsNd6x lXrkgMquTG7tSVXxxvsp n006GrHon7dwMEJt aSDoEJiwBMR1W76ie4W3 RINnONNjYGA2kHQ9hN4h bGlnbjogbGVmdDsgdmVy lKkhHLitNJjeY487 IHRvcDsnPlBhdGllbnQg JyDqYTm4Z3LbYoc8CTDk vCbnMS8tkEFvVLzrHa7u kSgweYomQW5aBEEs exrpy354LhPtz9lyUCGw fBIqQAogBTX5J29kj9K4 NCGuCEDpBON1cBK6lL7i bGlnbjogbGVmdDsg esPwjIjmNWcrBZbcM168 IHRvcDsnPkJpcnRoIERh cDX1KB04BA21eSUfl2M4 aGG0K6DwXCFjfmgf mqxtwMJ0XODxBRYjaB41 Tj0ocZrcVh7eXUViRDT6 IOIpyAWhN5UxgM8xLdRn RVTyLTBpJ1JfhPNo CQboK087GLnlXbP6CSCb duLrD2FiXUTsqHsmKuG5 n3F7Fc5YG6O4PA53UE86 vVFhy4R8cGI3C6Ru LZDslketymaydAW4WNKw TRIguE05Yi8krDdlAq5e LCIxZZT6VHJnvYCqQ9Ek nY0fZgNdSOXwFKAt N3DnjRTeAIxtT476HTdi EfP7FABmnpLyG9NxKTMe iPscYsM0h7A5Dy4HZYb0 XK14EZ03fSQcq2A0 fZO5D6MnZAJlkehccqsg aIY8FQXeGIApnX16Vl1v gDfsCw9xIFOlGUH5XAVd eMZrX0GdbM0sWyEo OIIvRAKtU3IlzWTcREfv L508YEgqUtL9LWTxgxZr W9PpUWCzoGfpJhF6o3I4 Ux0TCUGzKY11KTK4 sFQ2YB55QZ53O2PaCoww dGFibGU+PHRhYmxlIHdp ZHRoPScxMDAlJyBzdHls LU3lHz8lFCDiHEZh fBtmdDOvLrMzc4aaLXFk YIkfKD6kdKjnO0MgsGM3 IKCdb9r8Za10F10mO4Zd dXA+KJVsoGJ3xQW2 hN9jMjOgVnU5WKmsY795 ViMzoBIuPiexz3sja8om dMk2TjR3AVOfpmArlBza DPI7d5OtHh92B93r IHdpZHRoPSIxNSUiIHZh gDyazi6enT6mOu4+PGNv pIA6mNU3uD2fOpWmYcE4 TTguS564EaVhtMXr Xyiwl1pjl2nrySa7IyFb CCNisbIhyOdpLBH9s5Ze Rr14F2QnzViem9SvBcf6 sd62kNVzk0V9rMW3 R8PcHEMxlpxtcBOkhQtu OZ9yEYNaltkiADJqkT1n ZIFqB2q9JdDwWeZ0RKmc K9DmlvR4XRTimUVz JQqrPWB3X62id4D0PCTc YMBbXQR4kVJ6vQ7xwDbs bjogbGVmdDsgdmVydGlj YIqkJRhbI534VWBe kDhnLTIwcO3oFSCbgAYb fBonRT8dJMWjagkpJncG QkVSTElORywgTEFXUkVO X9JpDTeooUB+PHRk ZUM0qUarEKzlBHUdtC2r JUGyT5y4XuXzPuA2YIyj J5BjYCPascprUp24mN8i KhXaVwA7MNxsO6Wp tuQ8BRCpwXNaFKboFXC7 W08lo3K7EASeKQMkFAP0 zSL6vL6huUxvxxcduBBz dDsgdmVydGljYWwt OIdrK661HETqmPevUyM9 NhEvWfP0JJt9F4LkAbv0 FHKkgQcbQP1rvXIdJEfh Uh1bsPqcwLseMY2u BJAgjfjjHWJnaZ9oRVEo cXFmmBpzCR3nRCEnktyv b521AhJmIYF6OQRwjSLj J3KpbW3zIdGoCLTj UHNnY9RfeZUgRPtlK679 JUqbUuF5VKKaqqQwO6Jb NDFupDueHuH8j3B2Os26 MiBZZWFyczwvdGQ+ MMSoCCT3gWtoMPuvJZWp tH2gBXVyO0u4HzPxIeZ4 ZEmfC4SyXHEixrquKf65 tP5mNpHfFvW7DYtd N6HwgcV6LZDvbRWgFCce ZEO2Q10so1L0DSWrTOWb QQE2sQM1xP8zlBojizrq bGVmdDsgdmVydGlj AMraCSqfR581GNGhuUpm Gt2PXKZ0S9EjYqk5RRHa ePjpHC5lzJDbSUmeYe0w dAqqjOrmRB0oOWXp natwJCOicJ3uNXJlfKPl oXjsIZ2uVHYqyjruh374 XqKxEVG7MDTsiLRcY4Dh oE5rCfDbFPVqQAJc J0OqsDNfJNcjJ115VRhh PjQ5RLLyyrCbP4XpWWDc xKbkAhP7z8U1Du8VTTzc dGQ+HZ58nz58A8Rc GmdiCps7WLIuWMF4iMT0 wH2cTBCbDCqjv2W5oKQ9 D5YqqyQiay1wd7ebKBDr ENvaY33kqEYgh8F6 KDLtxBN6WOLagCrmXkGp lS58Hhh+KYKreNksk2Td Gjydp3ish2skuEp1QmXa JSIgdmFsaWduPSJ0 z0IuBh78V12nQJacKVLm KDLxSTEqWWYmsVowmr7p zL1sGd4+SDGlmUB5vYH9 rT7mPuLdGiP2PIja F142IrKgdMVqMaail3xz c9xbzJh8WnWiNWIzxqJz wGzbTSJ6l2MoKp90V3Sl lRpzi4RxYvc1sw66 mYIpo8F4zVZ7G6ZwOPSn lrgwlHQmzZgySN2gLBWy xewbTDHimI4wPOHxU9j9 FvOmAgS4HSjeW9Ny eiM3LSYleBIdZFTblWSV jF6cumaim0kbqtfhKqCa AJNhIPs2CGt4RBZwoVsa PaMpZQE4TwP4XNT7 fGOsmM6anAvkpbpudA2b Oyc+WYo2y5shnNKiWX5f gFB2IS12DT57dIFme1I7 oDI7V0ZqICRgwjzq syudxOS3VTUnZHQslN75 Sg2aiLmkPn1dYWXaMQV0 VNFfnDQhT3YeqG0yFmRp RTUuZNNkU8HxkEQe VHltS288CFalMyH1BRMo cxIhA2XiGDZftWbqGmL1 a7X8My2BQA34IB15HV81 zCNas2V2iFK9M2Jn TCNoyuentcvgkWC3XWEd USAzaW97Gu2ewLxjZj4u AWJoYUU0KMYlkNNqY9Ec rS5dAtYvBWMlOVJb N8UocPWzPMjcD628ZRhk FkN8DVXajfSiO4XeIVOg hFxxXcI4s8S6Nj4RTy67 XY41CA06kJLdw4X7 xPQ0V8KoFOLuysdcummd zNS8CFDcTKZzaE33No6z pRlhVp0yIZJyUAM1VJZi nRAkV4OkiC6iCbRv AZWnWRBpQ7TyjFCcFJct P266EIsqCxM7UVIepiTb C1NwEYCliFyvJmH0p5K6 Zc9GOLceeey9J6Ck PjwvdHI+ZR75ENWoRJ51 zXFnnXVxz0mapLx8MlXg ZEKjYCO4oHbzELcnb9Kv WIXbO17czFPuf2S2 IGN (more content not included)... [facility] Consent Formson 03-12-2021 Consent Forms [id number] [email or web address] [facility] Coding Summaryon 03-09-2021 Coding Summary HTMLBase 64 RhrztoddKHo8mUm+PGhl YWQ+AD8YRUFrB09inWLj hL0KS5xPAS7XQONILCWX BD8OXU0esSF8YWijV2Zo biAv LybgxSIvGM68DHp9ROH3 gWsvKHahhN4ouSEnC7x1 VoYvHY43kU21FElkITUf IqQ8HyJrpguopVQn S9xiXyNziVIyVmb+PHRh YmxlIHdpZHRoPScxMDAl ObBadAeoTJ6aWu8sQLMl LWNvbGxhcHNlOiBj a3udMUGnTWvrJO6cdDhy S1AonYI6BOYud1a7Pa77 dHI+NSJqRGI7aPpbEKab l805QpTev4npLJS9 uOPoOWudWST1Z22iu9A6 EEAnXMOaEIO6vEV1iQ0g eHwagotwQ2WdtKStRaH9 CGV9rTFkzS9uxLio ztmcgE1yUlq+Y99VRE8C DPVBWZ3TFmk2R8OzXtct dHI+VN68CUCrHH17cPZx iYFgc9rkeVh8IfEa VSTgFCL3jOadKUfbr1Lc UPBbO52ybOJxq9X9GKUg rGljeHIlCkGcdTW6rK2o PLfmwnhrd8mhjdcq Bepvj3fezm35eF92Z40s UIkuRJGzSAW2WRAdOXFi xTsady2jzT7fLq0+IDxj e9ovq5kxoNs6CzZs VBEvfrKrcMhxRZI7s9Nf Nw47W5TreFxcm8LmKnk2 vh89bYSil8G5oKI1KCha RUWkvV8eBQtsUqA3 JTZoCvHgdW88rYIbZHlo No5rvDqleOvoLO8vZEGi obilOEXmhP1wMXZqsAUu kKprSU3bADXbhero r641NdIuBVY4ZPGnuNHo V8PutW7iAjCvAEOuOVWg Y8ZfhZLtAGmkQ146TMls LvV8YLRszmKwI7Ar PCTpjFwjHwQ9e6V0Xm5A y2RytbkxQAX4IVqeKAXr BzY0GtDlSyW8B3SjPls9 WMOacIllSE9aB7Fn RLVztfjgqekkgEI9CLGu HOYtuM93zNDxFHxkTs0i x4W1l984MYKbHEFvuP43 Kl3inOixIFTqdWBJ eI8jhjmnf2egybmnFqXr WMVpRGg0BHm0AGWvfBry IcDhUVI0SuF7UQC3qYDx gZ9qpAzwiteobF3s Oyc+A43kjD4uLZZ1ZRI3 njzgLAUxdzTqYQ96CT47 F6DtRvswoEUqaLR+PGRp ekSxdZfnYY3lOnLd j1exh7BsBRhxS3IfKFLv TSlhGyt9BJNvBPV8dIA1 uQ3dHLMsRTaxd3P1cSV5 E1KmtaZcxo2ij6hh DIYaICyvB03dkJTpa0M7 OISnvKD3FDGslNssZsQr wC52Bpo+ARMvbZsnu6Xv Pbgjt0qib6ilzSp7 IjMwJSIgdmFsaWduPSJ0 g1DfUa01J31dWUmeXKXg GPIeJJBaDIHdnQbsew1g fM5cNn3+PGNvbCB3 mGT1tU0gJBRlBbH1UTpy E405IvCzrFNgPrnyk3nv l2zqwPb6PtJeKLAlpqRb dEjkDXZ7k1XzGr58 F98mXBszGHYtSAEnPXKx ORHemGmsih6pvT6bWd8+ AO3ri3isgc60mV40wJI+ CBSyOKH6aWtiNNnr WVOwvE5iMRdwEzB9WBSs EdNjxS61eURgIXvqKv6k eHuirHhbNG5yZIBnnrpx t175OyYmk4zzQNIw dLDdPPdnMDB1U78qf1H2 ITBmGEZxADQ1bDI7mN3c bGlnbjogbGVmdDsgdmVy kUfoEHdjVEgkW895 IHRvcDsnPlBhdGllbnQg KqDxFQp7T1MoUzr0TCZz rZsnVY9ppNQwCUrcNn2e sSecmTixDS0nWKKg ivykr698LxEih5hzOFUy tXYsYUtgZCS4C34pg3J9 CEOrJGVdFSN2fKR3vI6j bGlnbjogbGVmdDsg cdHdzJkxQQfrGOflM669 IHRvcDsnPkJpcnRoIERh qCX0VA83TD60fZBla4Z1 pZL1M5AsIAYegaci txzdcIJ8LWWhSDOmgM43 Se4luNpxFx5cJNPcZNJ2 YHIifKUmG8AtnT6sQkRv FMKaDCQxI2EfcUHu PDgvU110ZZhxFqX8PZWv leLkL0WiUIWfpCwrIsR1 f3U0Jv0VD3D3XD96YD23 tHTxn6W9pFL4U5Uy QJVkjvxelznfzQO0HYTm UNCjbE00Ro4asYunZp7r QIIjSNT6YBNulOEyQ5Hj vZ0kPoCqMHXfKECu I0PzhXKkPEpcM786UAlt EfA9EQGhsoFkC7HvMSHz gNsqGnQ9d9T0Lm9DZHq3 RH09FE75qPNxo1C8 bVW7M8ExQOQllvgtpyiy dLL5OLRuTOQbrC93Bt0b uVdrAr7nMEAtKDJ7JFRh iYIxI5NanC7aAuJf ZQHaWNPpO0BicGRgKCxq S478DLztQeQ4EFFtcsGk G7KsJBXuqBnhLlW0w5M5 Mz4GEMBeMA09IKA7 wHW9HJ71QF86R3JxZqdq dGFibGU+PHRhYmxlIHdp ZHRoPScxMDAlJyBzdHls FF6mMg1fIHWfWHPl nHkgnNXrCdRtj7ciUEKo NFzuNV4kcWmcJ6WaaJF7 ZDVtd6m9Ho95C80iZ8Gn dXA+LTMaxNK4jCV5 xA3uJwMcGjZ2OUcnX826 DbZtmQGqLtjty6ziy5ax hRw7GmO4LWFvpkEhdJtd FUR8n3VlGo95N36p IHdpZHRoPSIxNSUiIHZh pWbfnw1ppH8kRq6+PGNv iHB9nMJ2eR4lWtHfSwP6 PXinK730DeIhvJRg Zasfx9jtj2tfrWl4MySi PNMhmcCboXmbPCF9e9Zn In97D5SzbHdxd9TqZyi5 cj24eFNlj3P2qSR4 Y7McAGOktvcnxIFcxVpu FY0iELJapzuwMNIxjR6i JAYzU1j3NiOcZmJ4IOac G4RegxI6PDBtsSAm KEwoBRJ4I45xg7T7LIGr UWEuUMR0eFV1oM9htGza bjogbGVmdDsgdmVydGlj JHqlNXawT308GFXu nGhcNKQweU5wDREoxGTb wYdlSH7yFQXwxeqfNhxX QkVSTElORywgTEFXUkVO H3TzBDeskRC+PHRk GST0yGfkZUdxVULnmU4f VHWvP7m6FnEhOjM1LOpq N2GoSKEuacrySm71dW3p ZcWyDcF5GZlkT8Yw efR0XTUmrIKaRIzeLAV7 W02we1G2QBHsCXGlSPB4 wMN5fX5hmClxqcvutZVm dDsgdmVydGljYWwt ZLdyY700ZDGtcNhgAqH8 FjBwTzN7HAh4B6QiNqx0 WUWfsLkrAZ8xfWWvROtb Up9dkKfwyEcgFO6j FULnlqfbVZVirT2nAAKf rFCfeGeiJA4eKCMvvybx n794NbBlROE1HPQxaBDe U6RosW6fOoKvAUHx GDXwF3NcvHRvFVgiD010 CXppJoQ4LJCxwtTcO9Pa VCBsuHuyBsD7j7Q3Js32 MiBZZWFyczwvdGQ+ NKRmSAS8xWmxSPfeOTAa kN9jHTXsR4e4SuVpFpD9 ZQzjS1NxFTRgvrwfHi83 nR6dBmEtNbW5RGyd G6JjdaN9VGPfyVVjOAvn EDL4O02wy9G9IIUvFYMq XCY1yED6mC2zlBgorfss bGVmdDsgdmVydGlj PEuoIAxrL326PWJrkXml Pf5RVTH8H9BtEic3RAWk qGzvEF5gkAFnPQotCx3w mWppcPaiFB1vCRDr gsuvGDVlyW2lHHLzxGFb lFsoSH5nHFWlkwmql945 OmZqHOQ7POVbcZHuO4Xq xD4jBaGhTZUgEBNj O8DkfVOjZNjwF896OEth UoQ7XIWdibIkO7OmHNIh hVeeNoY2t8L6Zv0EBpLh cnZhdGlvbjwvdGQ+ MS27lo55B3YeXwjgBsx6 BBHoMKL3mYV8tU4qXGXk RFqon9Z8wQZ5Y9HihkQa uw2qp9dwNPYgXOnc E76fyTPru6G4ETCfyNI0 OFVxyDahNzOohF64Vke+ OOUqlBgkc8ZyKqqdm6kh b2lulWi9SsGoVFYp pwZwaEttMYS1p2EjIj60 N45wNMcePLJyZAKnKJYu EGTrfXjgxg2ojH2lGt8+ CZMhhDV6rKO2bT4p OjPePrG3GWfuL888LrYs nCDmOmlvi8bxk2fpfPe3 IjIwJSIgdmFsaWduPSJ0 p1VnAo04P4XqxGfr x0PsJmy3op90nGYkd9R6 mTF2F7QwUULyuybqhITa qDghQX4aCMWzctdvKMFl hP3pOUQnQ7b8WjAg YfE6PUfkW2TdkrD6HYWi eMYpNFSlgDXAvU4jhdor b2mtkindViKhGVObYHj5 BVw1ZPSxnFztNeUr BWR4ZzY2ZVM6qPYmtM2a gJbnzcwxcD7eZoz+UGh5 l5zuwQFtAU8tqPC9HC71 OK80hHNlr5Q5dLV9 Z7MbCPKxgbgxvozmqGG2 VSAoMNLgaF71Gj8bwNnt So3gRLWfDNY7GGHekZUd B9HdvT9pNtRrRXGc NKKiU2FerFEpGIalN975 LYshFbE5UUOjahZqL5Oe MFSznUxeXoR2u7K4Ud2N DB46RR60QS73rVTv v2P1vBD5L7BiRICwfhpp tvpuhDO3ZFLxCAQqlD08 Yg6rlRyvVi6iRDGjDXP8 LGGuoWJcS6GzfA1s RnCnEOMdRABoJ1JhfXOz STbsW026WCtiYtS2UXHv aqPtU8UmQYBzeAxhYqX4 m9H0Hy0IFq05QX30 EB72mDLmm8O2aAN4E4Ga RDXuudczjegivPV6UDUy VBFuvP13Xs7frMcsAp3x OZNyMRD1DMSkiPYb C1AoaS9tSiMaIONcYSNd N5IepDMjERqfH971IQuy MaL3NHXluwSyF0ZqLGFv uOenMvW0t1L3Ck6B LKjgzoy9B9HfWgiddZC+ LI41AVJsTK96mDHgjYAt s8urdXc8UhJgSUTqGCE7 mBbzBVpnu2CgAZQj Y29 (more content not included)... [facility] Coding Summaryon 03-08-2021 Coding Summary HTMLBase 64 VmtfvozhXNq9kGa+PGhl YWQ+RE7MYNKiG94bsKSm yK7ZW7wGJQ5OZSPSHJXZ PY3FPO9shTC1JKtpW4Pf biAv NpgfmZKaYC63JJj6NPS5 rRuhYXpxoV7mfAEpP0m3 MvXdRA19lF98UJnpFNZf WlR3FvQwvibtfMOv F8gsLkPooUFkCmf+PHRh YmxlIHdpZHRoPScxMDAl YjXhkMubBH4dXr8mLUIh LWNvbGxhcHNlOiBj y4lpSGLnXQnsPZ9hpGqv K9JywCD9BEEbk9r8Ob08 dHI+JGSjCDO4iDifZIat z143DfRtx4ztHRK3 uTWaXBmvNDC7F23rq4E8 EYDhPCGqTNY6dXS9nM1n iGvgkapaP2LvwZCeMqL3 MOW9nBIgaB6qsYcg cqiuqS9zQrs+L34XHT0U TVUUBJ5UVmx2I6QcHxks dHI+QD08DVBiRU82eUIv lJCyd1mddDo5ZgKu KVToIOP3nNxiXMzhy2Jo RKWhK48knKFpw8Q9APBp uEthbQOfFgAkxPS1zL3s EUcfsstna8fgciev Awcdw4khrd72lK51G28v QKfmMYEdRIY4GAJuXBPn zYuxnk6szM6sZy7+IDxj l5ise3lqzOc7YpIx YTWtajRxgMerHCK3c0Ad Qw44Z0CboRksk7XwSru6 lf78qYGxn4A3qBB9DGri NDUbiK2bCGiuPaS6 CPCqJzVovU93vCZvEVzl Ui0suIgucSzfON4pSGIz qvctUSOmgI4iFVSmyLBe iFyoYB2dXEZeuthd d076ZyOiKIC1EAZwsLCk T6PlhM9gBmNjOUNzUWOj D9EgpOMdHTzmO335EOsk BnW9RMXdgvDzP5Sn XQEjcGxqRrM7x1T6Ce5R c1FotvxhHWQ8ZLfyNPKp DfT2GcOeRqW2Z2GpKjp8 JMWcsJagBR3pP5Mi LHUpruztqhdvbCD7HGFy SAHgjB73pEYyFOogZd7y o4T4t711QGVtXLZbkF43 Fi6puVgiFJXhgTRF mO2cntvfj4nkgmwqFaVa EDDmCRj9WSe6GMSzmIpj UaAzTFQ2FtW5TRL6fUIy zQ6ohNmagweakH6q Oyc+B74stN7aFXK7GAL9 jtdzHUJdnjSqVB45UG47 H2YcEjckrHOrgQD+PGRp ekKlsApyKW7fEnZf s6pcg3TgJRumL6ZlTIEu JBtxOww4EXXxWIJ4wYI4 rN0nGDYdTEfxr9Y9bPD0 F3SpmzZncf5fz2pc HKEmWAemK58agSBpp4G9 TAZkyLU5SBDrgHrkHcHh tR03Mvd+GBSptTuau4Sm Hadjs9yfy9btkRe1 IjMwJSIgdmFsaWduPSJ0 r0AmDb57C27wOZblESUg KOQcHQPaQZYwlSuclt9e nF3wUf1+PGNvbCB3 lLN3vL0vTJVfTkP6FFwi F496JeBesNRuXzdhz0fu u7tqhWf8MwRwRANafgIm aGxiKNZ1v2XfXs87 K53hMAkbDVPdMGOqIAEu PTIskYkywn5vgT1kHv3+ PA0hx3canf32zB42aAR+ UPCxMYP0dQyfDJwa TLJthZ0aYRzxFqP3OAHa XiLfoY75tONyTOlfPl6v kMlooCgnJX1iZJUwrejz j350OjOzo2exDCEj vQLdWDbhLGZ9T07zn6K1 EOSlNSSfHYE2lVM7jS0i bGlnbjogbGVmdDsgdmVy hHsbSVsuFZvuR315 IHRvcDsnPlBhdGllbnQg SxPoZXe6B6HdHsu0TAUi yYsnEQ5saPHjGXmoBa2r mAnloUtmPN6tPTLc pgqmx992KjFrk7arENGe aKTvWNqfXZU3Z91gw2A2 XCAaVXLeGUW7oRV7oY4k bGlnbjogbGVmdDsg daSvbTwaRPjlKLwqE220 IHRvcDsnPkJpcnRoIERh dXS7VE70SF12oPWqj2V0 jJX9U0KkVPLtiklm fqmslWC5TFHiSVQmqA12 Ke5znDwxZk0wSKUjLKZ5 VTUwwXTzU9CkkK1dEoYt MRLxZBYyR0EwoGHl CIxlH108OAsbKtY8GPDb nuFlG6IkGMZdrMieBrP9 z4Q9Gi6MP5H5US94NP51 jJTtr0V5yRY9A6Og NZFvknbyaepprWR8VGYj AWXbsK59Gk0eeSwaLy2y SOXhUFE4HQRoxXTtU3Tb oR3ySyTxBWVnTGJi Y8LieXPzIXxoL390UCua PjD5FMTcpzCzN0EnYUOy jXlzMkX5b3B9Zc4HRAu3 QS49BE23iIZsb6R7 oLA4D0QoAAZjibhvwrrr vLE8CRAvLILvrT86Ss2m xStkCy0pNJIsAIE6OHWe uEChQ0SvjU1xWlId CZAbCOIlS4VzmMEpCJdc N502JKwnZcO0HVQwzaNs X5ThILRjgTdoTuV9w7C1 Fg5FKNThJV46SIH6 nEZ4KU34FE78O4MkHnum dGFibGU+PHRhYmxlIHdp ZHRoPScxMDAlJyBzdHls DH1mGn7dWGPbLBYr fRoivFKcTkCjy4djSJWe YMgdIP0fyClfX1MxoPA8 XLHmp1m7Au61E42yX9Sm dXA+QXGvyKT9lOK6 cS1rQlBjJzH0ROlqL796 NoUmlCTaIsgwp4hgw5bb mJq2AlN2ZJPjweJkhPhf RRL7y1FsKq30N02x IHdpZHRoPSIxNSUiIHZh pHphse0rrZ9pQr5+PGNv dBW9dVH4rO9xPhAkPeY6 FPnuE341XnQytBQw Ekpzf7uzu8qszDh1BbLv YAXxacKevEmsNJA4k8Qw Gf49A5LauUqpj7XwOay2 ef52qCPwy8Y4rEM4 D9KuIHAtvrhsdZDsdPfz CN8cWXUeiuqzYRJbgK7v NWQbE8o2DgJiRvT9PMyq R2RqbjT6TRTvlKLj VVmaEKW3Z77kb6S8QKYr DCUrRJG6iRD4aJ8smRjj bjogbGVmdDsgdmVydGlj OEjxXBfvF988QPKz iDexTSCwqL5fFIKgcKKt pMzqEB3mJSVdpahsZkaL QkVSTElORywgTEFXUkVO T4FbRCqbgJM+PHRk BLN3lFepQAoyVPJzpZ1q VFZaB2s7WoUdPuL2GNay A7TmWWUlpgqpRs85oR2k KvXnCjJ7WXjfG2Dq upZ9XUSywVUlTCrgLAA7 N35po7V7IJBcIHIyWHA6 wBQ5gZ8xvOssluxybSTq dDsgdmVydGljYWwt IUwxD800OOOezQheAcU3 RhYsXcZ5JMo2K0TuIcf6 LBUxzOwzLM3hnMRlJYoo Lp7aqUxbzYcqQQ1h JUOxuaeeTXRsqW1bVYJo vPBfaGujZM7bGTNnstqc f865XnBnCEN6ROSqlARr P3LalC5cObGcORTq HLAnH4YakGRoDKpoQ050 HSbiOqU1YHXumoEmO2Bd FQQjnDodQzW1c6F1Pu45 MiBZZWFyczwvdGQ+ MFUlQZD3rWrrWTqqOUEw qZ1pTFHtP9g4ZpInQeX7 DMhuO0UuDQXlmmeqQm44 uD7mBmQrPuJ3PLvy S1OuxcV0FLCqkSGgEMdk VKG2D83ly1B9QHPoHZKs BWR7pQL0lH0ytBxiskaq bGVmdDsgdmVydGlj BIocAHdrC524KAYsoBzp Nl6IDLQ8P4IiSep7DUYu mXysCY2irZLpKHtrIe2j fDiztYyxWG5uQRIm omjzBZDjlC3tDBRadKMo xQkmPT2cSGIwhqags951 IrQsSXA5BQWcfNAzR0Mn mH9cEhJjZHXgRMFb S8WsoHHvVAqxD569JHfy FbZ6GRXkceHcH9FoAEOg qDmqGoX0m6W6Uo0RLZrp dGQ+TA83bq39B7Eq CgdgYfa4LSUdVIF3vWF3 eX7jJWMqHPmdd8P1qTZ4 E4MnvhPzue2qj4viDDUy KOacA08jvFDok3X7 ZUPmjXG2QRFoiKupXqSl nB70Fmo+CDEtgKstr7Pw Fddjg7asj5hxcSy0OlWy JSIgdmFsaWduPSJ0 a1YnKi78T05nIRnqSSCb AHGrSAVeXSWxsApchv6h wH5cAd7+UVKeeQR6bOR0 tJ5cKzWcZlH6ICtw V262JtIoyUEaGfffz9vy y2aazYu3PoLrOFOqytQd hTbrIZQ8j8CrDl50C7Iu qNnpg9YiSez4cm11 oUEne7J5bUV7R6GjBEQo bbqydXXxvJeiTR6kFZPu ogrgRXNwjY7tSNXiB7h9 OgMlLdJ3VYuwX4Rk ppQ0MKVplMYqFLWngAFD uO8smjrjd2amvhdqExHg AEZpMEc0PHk7DLHvxYym BqLbMUV2DyI9KCO4 cAVblQ4bcRkclkfiwF3z Oyc+SEg9m0vplPYsQB5n xOF8VP82AB80dBSll3U2 hMD7M1SzFUEdegdb ltvgnWH7JNDyORQtuH17 Ei8iiXopQr8gLYNqAJD1 DNMxbLSlN3BcfC6dAiLy UTCmFGSdS6BuwJEz MDooP187WFhyPtM0QRMy ssHgY3PoXCQpbWbzYhY6 m4Y2Sj2RHU91LR97JH86 lSSog1V0cMO6A8Vc CZZmphhuhlymcNL3RMPo OYIygI66Ia0lySscPm1y MCBqDMM3VMUpbIRyK3Ix dP2mZmHrOVKoQZRu W4GerXNqHVihL735UQav GmI1KBLzfbLeC6ZtWUDf nYwoSwN7u7U8Bh5LUs78 ZV15ZT88vSPxi1J6 cWN1H1YyKYWglfibqlxl yVI4FORsGXYdcN95Al3o kDtrFr4tVOFvDVU5ZFVr dPKzM4PwlP8cUxSs YZBkPRLqI6TmvMEkFAhk I828LDicSbO3GVNqnwRc J5XuOGFnvCjcScW9m9U0 Yb3LILpjhey1Q7Br PjwvdHI+BO50NPKeDE43 tZSgaEEfn6xkgDy9TyBt YCTwEIG9eOxwELwwu1Er DPMoZ52vvGJgy2B4 IGN (more content not included)... [facility] Consent Formson 03-04-2021 Consent Forms [id number] [email or web address] [facility] Electronic Messagingon 03-04 Electronic Messaging --- --- --- --- --- --- --- --- --- From: Ej ([email or web address])Ej To: ZAINA WINTERS Sent: 03/04/21 10:12:15 AM EST Subject: Discharge Summary Ready to View A summary regarding your recent visit is available in the Documents section of your Health Record. [facility] MAGR Intraoperative Recordon 03-04-2021 MAGR Intraoperative Record MAGR Intra-Op Record Summary Primary Physician: DAVID AWAD Finalized Date/Time: 03/04/21 08:14:12 Pt. Name: ZAINA WINTERS.O.B./Sex: 1950 MALE Med Rec #: [id number] Physician: DAVID AWAD Financial #: [id number] Pt. Type: O Room/Bed: [facility] Admit/Disch: 03/02/21 05:52:00 - 03/03/21 14:09:00 [...] Role Performed Surgeon - Primary Anesthesiologist of Cuffing Machine Operator Record Time In 03/02/21 08:00:00 03/02/21 08:00:00 03/02/21 08:00:00 Time Out 03/02/21 12:09:00 03/02/21 12:09:00 03/02/21 12:09:00 Procedure Arthroplasty Knee Arthroplasty Knee Arthroplasty Knee Total(Left) Total(Left) Total(Left) Last Modified By: Jo-Ann Schwab RN, Barbara RN Long, Barbara RN 03/02/21 12:19:51 03/02/21 12:19:51 03/02/21 12:19:51 Entry 4 Entry 5 Entry 6 Case Attendee Marjorie Esteves DIRECTOR OF SPORTS PERFORMANCE, Sue Horner DIRECTOR OF SPORTS PERFORMANCE Role Performed Scrub Personnel Paste Up Copy Camera Operator Paste Up Copy Camera Operator Time In 03/02/21 08:00:00 03/02/21 08:00:00 03/02/21 [...] By: Zaheer (more content not included)... Normal [facility] Outside Recordson 03-04-2021 Outside Records [id number] #1.00[facility] Provider Orderson 03-04-2021 Provider Orders [id number] #1.00[facility] Telemetry Stripson 2 Telemetry Strips [id number] [address] .Auto Diff 1on 03-03-2021 Auto [place] % 10 % Normal 1-12 [facility] Comment on above: Performed By: #### 1 [id number], 82502424, 4214631396, 9777538687, 8816632, 0938493791 ####[facility] (DEFAULT)[address] [place] [address] 18568 Baso Abs# 0.0 x10 Normal 0.0-0.2 [facility] Comment on above: Performed By: #### 1 [id number], 76818576, 7839370549, 7605817243, 8223093, 1409572129 ####[facility] (DEFAULT)[address] [place] [address] 30260 Basophils/100 WBC (Bld) 0.0 % Low 0.2-2.0 [facility] Comment on above: Performed By: #### 1 [id number], 91943880, 9299143553, 4427270419, 6005016, 6552139998 ####[facility] (DEFAULT)[address] [place] [address] 56497 Eos Abs# 0.0 x10 Normal 0.0-0.4 [facility] Comment on above: Performed By: #### 1 [id number], 20036142, 9352178976, 4263044785, 4638940, ####[facility] (DEFAULT)[address] [place] [address] 68850 Eosinophils/100 WBC (Bld) 0.0 % Low 0.9-4.0 [facility] Comment on above: Performed By: #### 1 [id number], 81856236, 5142171042, 2884858695, 3723279, ####[facility] (DEFAULT)[address] [place] [address] 11706 Lymph Abs# 1.9 x10 Normal 1.3-2.9 [facility] Comment on above: Performed By: #### 1 420603903, 56674477, 7717362481, 3557263816, 7526323, 5939148763 ####[facility] (DEFAULT)[address] [place] [address] 81753 Lymphocytes/100 WBC (Bld) 10 % Low 14-48 [facility] Comment on above: Performed By: #### 1 420605730, 19115130, 8049576261, 5397401426, 8567539, 5728909843 ####[facility] (DEFAULT)[address] [place] [address] 36686 [place] Abs# 1.9 x10 High 0.0-0.8 [facility] Comment on above: Performed By: #### 1 [id number], 04817931, 3176170272, 8264214182, 4634179, 8016788631 ####[facility] (DEFAULT)[address] [place] [address] 00923 Neut Abs# 16.2 x10 High 1.5-9.2 [facility] Comment on above: Performed By: #### 1 [id number], 61276177, 2770368977, 7362648010, 6881819, 5054482582 ####[facility] (DEFAULT)[address] [place] [address] 77528 Neutrophils/100 WBC (Bld) 81 % Normal 44-88 [facility] Comment on above: Performed By: #### 1 [id number], 19938318, 0538715362, 5988834620, 9380094, 7521436123 ####[facility] (DEFAULT)[address] [place] [address] CBC w/ Auto Diffon 2 Erythrocyte distribution width (RBC) [Ratio] 13.5 % Normal 11.5-15.0 [facility] Comment on above: Performed By: #### 1 [id number], 11935937, 2884105503, 7600629721, 1140266, 7121616649 ####[facility] (DEFAULT)[address] [place] [address] Hematocrit (Bld) [Volume fraction] 40.5 % Normal 34.8-51.9 [facility] Comment on above: Performed By: #### 1 [id number], 28550263, 8338010427, 3585094651, 2130490, 8178234537 ####[facility] (DEFAULT)[address] [place] [address] 69741 Hemoglobin (Bld) [Mass/Vol] 12.8 g/dL Normal 11.8-17.7 [facility] Comment on above: Performed By: #### 1 [id number], 25549128, 8391990662, 5533606303, 9303535, 5294057031 ####[facility] (DEFAULT)[address] [place], [place] [address] Instr WBC 20.1 x10 Invalid Interpretation Code [facility] Comment on above: Performed By: #### 1 [id number], 67976268, 4862925344, 6376105292, 8896152, 4784950934 ####[facility] (DEFAULT)[address] [place] [address] 49557 Man Diff? Auto Normal [facility] Comment on above: Performed By: #### 1 [id number], 17208442, 5005689996, 3701783717, 7997844, 7603951367 ####[facility] (DEFAULT)[address] [place] [address] 90613 MCH (RBC) [Entitic mass] 30 pg Normal 24-34 [facility] Comment on above: Performed By: #### 1 106692749, 40445853, 5996875313, 1857163241, 3837816, 2390539686 ####[facility] (DEFAULT)[address] [place] [address] 14300 MCHC (RBC) [Mass/Vol] 32 g/dL Normal 26-37 [facility] Comment on above: Performed By: #### 1 [id number], 11403362, 8813071052, 8993374115, 8075691, 3024627437 ####[facility] (DEFAULT)[address] [place] [address] 09263 MCV (RBC) [Entitic vol] 96 fL Normal 81-100 [facility] Comment on above: Performed By: #### 1 495215793, 70790286, 6384348805, 8557136120, 4711394, 0990518846 ####[facility] (DEFAULT)[address] [place] [address] 11280 Platelet 275 x10 Normal 138-427 [facility] Comment on above: Performed By: #### 1 694698675, 13224803, 8006641065, 3366868704, 2060341, 3940687033 ####[facility] (DEFAULT)[address] [place] [address] 26724 Platelet mean volume (Bld) [Entitic vol] 10.3 fL High 6.3-10.2 [facility] Comment on above: Performed By: #### 1 503297979, 32377471, 7340936329, 4175411912, 7869630, 6169911500 ####[facility] (DEFAULT)[facility] [place] [address] RBC 4.24 x10 Normal 3.70-5.30 [facility] Comment on above: Performed By: #### 1 751210131, 28183701, 2835350192, 0541170761, 0226749, 2606818035 ####[facility] (DEFAULT)[address] [place] [address] 26261 WBC 20.1 x10 High 3.5-10.5 [facility] Comment on above: Result Comment: Slid e Reviewed Performed By: #### 1 396285278, 98354600, 6736010446, 1134859500, 0592364, 8780410307 ####[facility] (DEFAULT)[address] [place] [address] 16404 Electrolyte Panel Standardon 03-03-2021 Anion gap [Moles/Vol] 17.0 mmol/L Normal 5.0-19.0 [facility] Comment on above: Performed By: #### 1 [id number], 09817879, 7223045746, 8610490724, 0532759, 1051885151 ####[facility] (DEFAULT)[address] [place] [address] 38378 Chloride [Moles/Vol] 97 mmol/L Low 101-111 [facility] Comment on above: Performed By: #### 1 [id number], 85810481, 6490598203, 7120543733, 6545411, 6180823222 ####[facility] (DEFAULT)[address] [place] [address] 11220 CO2 [Moles/Vol] 26 mmol/L Normal 21-32 [facility] Comment on above: Performed By: #### 1 985883369, 99186885, 1589277598, 5636331880, 4985738, 2722018006 ####[facility] (DEFAULT)[address] [place] [address] 04412 Potassium [Moles/Vol] 3.9 mmol/L Normal 3.6-5.1 [facility] Comment on above: Performed By: #### 1 283167264, 04666058, 4662332392, 1235605070, 7894238, 7833229339 ####[facility] (DEFAULT)[address] [place] [address] 07655 Sodium [Moles/Vol] 136.0 mmol/L Normal 136.0-144.0 [facility] Comment on above: Performed By: #### 1 [id number], 86447720, 8795677548, 5579374289, 2973267, 8064620343 ####[facility] (DEFAULT)[address] [place] [address] 37004 Extra Greenon 03-03-2021 Tube Collected Yes Invalid Interpretation Code [facility] Comment on above: Performed By: #### 1 [id number], 41147361, 6466545013, 1481481364, 6673467, 8976773018 ####[facility] (DEFAULT)[address] [place] [address] 20388 Inpatient Patient Summaryon 03-03-2021 Inpatient Patient Summary [address] [address] Patient Discharge Instructions Name: ZAINA WINTERS : 1950 Patient Address: [address] [place] [address] Primary Care Provider: Name: Jeannine Hurley After you are discharged if you find you have any questions, please, call [phone] ext [phone] to speak to a nurse. Discharge Diagnosis: [...] contact the Mental Health [facility] Recovery Board [facility] 05/09 Crisis Hotline -Text 4HOPE to 865672. If you received any narcotics, sedation, or [...] business decisions or sign any legal documents [facility] would like to thank you for allowing us to assist you with your healthcare needs. The following includes patient education materials and information regarding your injury/illness. ZAINA WINTERS has been given the following list of follow-up instructions, prescriptions, and patient education materials: Follow-up Instructions With: Address: When: Trenton Redd [address] [place] [address], [facility] [address] [place], [place] [address] Business (1) 03/15/2021 10:30 AM With: Address: When: Jeannine Evangelista [address] [place], [place] [address] Business (1) Medications During the course of [...] (more content not included)... [facility] Phase II Record Summary Primary Physician: DAVID AWAD Finalized Date/Time: 03/03/21 08:37:51 Pt. Name: ZAINA WINTERS /Sex: 1950 MALE Med Rec #: [id number] Physician: DAVID AWAD Financial #: [id number] Pt. Type: O Room/Bed: [facility]/1 Admit/Disch: 03/02/21 05:52:00 - Institution: Phase II [...] Signed By: Vianca Celaya RN 03/03/21 08:37 [facility] Nutrition Noteon 03-03-2021 Nutrition Note Pt admitted for scheduled Lt total knee surgery. Diet advanced to 3000kcal DM, along w/ usual post op vitamins/minerals and oral nutritional supplements; adjusted by television script writer to 2000kcal to better meet nutritional needs without overcompensating. Labs reviewed, BS 138-177mg/dl ideal post op. Pt at high nutrition risk r/t age greater than 65y, however, no immediate nutrition concerns at this time. Will monitor for changes. Normal [facility] Anesthesia Noteon 03-02-2021 Anesthesia Note Patient: ZAINA [...] on: 03/02/2021 12:40 EST] Dre Santos DO [facility] Anesthesia Note Patient: ZAINA WINTERS Age: [...] = 20 mL, 100 mL/hr, IV Piggyback, Program Services Planner tranexamic acid: 1,000 mg = 100 mL, 300 mL/hr, IV Piggyback, Program Services Planner tranexamic acid: 1,000 mg = 100 mL, 300 mL/hr, IV Piggyback, Program Services Planner Documented Medications Documented Eliquis 5 mg oral [...] All Problems Atrial fibrillation / SNOMED CT 10203437 / Confirmed COVID-19 / SNOMED CT 4533451995 / Confirmed Diabetes / SNOMED CT 437008748 / Confirmed FH: hypertension / SNOMED CT 265915631 / Confirmed 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 Comments: 02/04/2021 10:08 Oliva Van RN surgery [...] review ECG interpretation: Normal sinus rhythm. Plan [place] [employer]#(A SA) physical status classification: [...] EST] Aiden Santos (more content not included)... [facility] MAGR Intraoperative Recordon 03-02-2021 MAGR Intraoperative Record MAGR Intra-Op Record Summary Primary Physician: Finalized Date/Time: 03/02/21 08:23:07 Pt. Name: ZAINA WINTERS /Sex: 1950 MALE Med Rec #: [id number] Physician: DAVID AWAD Financial #: [id number] Pt. Type: D Room/Bed: / Admit/Disch: 03/02/21 [...] Draper, Lora RN Role Performed Anesthesiologist of Cuffing Machine Operator Cuffing Machine Operator Record Time In 03/02/21 07:33:00 03/02/21 07:33:00 [...] Airway Device Na (more content not included)... [facility] Record MAGR PACU Record Summary Primary Physician: DAVID AWAD Finalized Date/Time: 03/02/21 13:11:26 Pt. Name: SINGHZAINA D.O.B./Sex: 1950 MALE Med Rec #: [id number] Physician: DAVID AWAD Financial #: [id number] Pt. Type: D Room/Bed: [facility] Admit/Disch: 03/02/21 05:52:00 - Institution: PACU Case Times MAGR Entry 1 In PACU I 03/02/21 12:07:00 Discharge from PACU 03/02/21 12:58:00 I Last Modified By: Rosy Gaxiola RN 03/02/21 12:58:08 General Comments: Pt stable. VS stable. Pain level 8/10. Report given to LESLEY Velásquez at bedside. Finalized By: Rosy Gaxiola RN Document Signatures Signed By: Rosy Gaxiola RN 03/02/21 13:11 [facility] 0 03-02-2021 MAGR Preoperative Record MAGR Pre-Op Record Summary Primary Physician: DAVID AWAD Finalized Date/Time: 03/02/21 08:24:03 Pt. Name: ZAINA WINTERS /Sex: 1950 MALE Med Rec #: [id number] Physician: DAVID AWAD Financial #: [id number] Pt. Type: D Room/Bed: / Admit/Disch: 03/02/21 [...] Signed By: Rita Molina RN 03/02/21 08:24 [facility] POCT Glucose Levelon 022 Glucose [Mass/Vol] 177 mg/dL High 74-118 [facility] Comment on above: Performed By: #### 4 [id number] #### [facility] (DEFAULT) [address] [place] [address] Glucose [Mass/Vol] 138 mg/dL High 74-118 [facility] Comment on above: Performed By: #### 4 [id number] ####[facility] (DEFAULT)[address] [place] [address] Patient Handouton 03-02-2021 Patient Handout POST OPERATIVE [...] #8 follow up in office with physician business assistant Justo Redd as scheduled #9 NOMS [...] the nearest hospital's emergency services department. Normal [facility] XR Knee One or Two Views Lef [...] MD 03/02/21 1:56 pm Technologist: Evelia ESCOBAR [facility] 2019 Novel Coronavirus (CoVI D-19), JULISSA LCon 03-01-2021 SARS-CoV-2 (COVID-19) RNA JULISSA+probe Ql (Unsp spec) Not detected Invalid Interpretation Code Not Detected [facility] Comment on above: Order Comment: [id number] Result Comment: This nucleic acid amplification test was developed and its performance characteristics determined by [employer]. Nucleic acid amplification tests include RT- PCR [...] detected) result in this assay. Performed At: [address] [id number] Zay Landa PhD Ph:[phone] Performed By: #### 1 [id number], [id number], [id number] #### [facility] (DEFAULT) [address] [place] [address]389 Progress Note - Nurseon 02-13 Progress Note - Nurse Pre-op call for 03-02-2021 surgery made- patient informed of arrival time of 0600 tomorrow ,NPO after midnight except for any medication that he was instructed to take in morning, hibiclens shower x2-patient with understanding. [Electronically Signed on: 03/01/2021 09:42 EST] Rita Molina RN [Verified on: 03/01/2021 09:42 EST] Rita Molina RN [facility] Progress Note - Nurseon 01-14 Progress Note - Nurse PAT review done per Dr. Mccauley, no orders received. [Electronically Signed on: 02/08/2021 10:37 EST] Oliva Rabago RN [Verified on: 02/08/2021 10:37 EST] Oliva Rabago RN [facility] .Auto Diff 02-04-2021 Auto [place] % 10 % Normal 02-24 [facility] Comment on above: Performed By: #### 1 [id number], 64234818, 8334310 ####[facility] (DEFAULT)[address] [place] [address] Baso Abs# 0.0 x10 Normal 0.0-0.2 [facility] Comment on above: Performed By: #### 1 [id number], 63967454, 0221293 ####[facility] (DEFAULT)[address] [place] [address] Basophils/100 WBC (Bld) 0.3 % Normal 0.2-2.0 [facility] Comment on above: Performed By: #### 1 [id number], 32586355, 7265102 ####[facility] (DEFAULT)[address] [place] [address] 51296 Eos Abs# 0.1 x10 Normal 0.0-0.4 [facility] Comment on above: Performed By: #### 1 [id number], 54056038, 5430001 ####[facility] (DEFAULT)[address] [place] [address] 01127 Eosinophils/100 WBC (Bld) 1.1 % Normal 0.9-4.0 [facility] Comment on above: Performed By: #### 1 [id number], 71864419, 2052361 ####[facility] (DEFAULT)[address] [place] [address] 38411 Lymph Abs# 2.0 x10 Normal 1.3-2.9 [facility] Comment on above: Performed By: #### 1 [id number], 50315930, 1399999 ####[facility] (DEFAULT)[address] [place] [address] 06678 Lymphocytes/100 WBC (Bld) 27 % Normal 14-48 [facility] Comment on above: Performed By: #### 1 [id number], 77228348, 5961901 ####[facility] (DEFAULT)[address] [place] [address] 16874 [place] Abs# 0.7 x10 Normal 0.0-0.8 [facility] Comment on above: Performed By: #### 1 [id number], 63960391, 2593644 ####[facility] (DEFAULT)[address] [place] [address] 45367 Neut Abs# 4.5 x10 Normal 1.5-9.2 [facility] Comment on above: Performed By: #### 1 [id number], 46338841, 2561224 ####[facility] (DEFAULT)[address] [place] [address] 42716 Neutrophils/100 WBC (Bld) 62 % Normal 44-88 [facility] Comment on above: Performed By: #### 1 [id number], 79538182, 5346557 ####[facility] (DEFAULT)[address] [place] [address] 51247 [facility] Standardon 02-04-2021 eGFR Non AA >60 Invalid Interpretation Code [facility] Comment on above: Performed By: #### 1 [id number], 06033094, 6877023 ####[facility] (DEFAULT)[address] [place] [address] 88102 eGFR AA >60 Invalid Interpretation Code [facility] Comment on above: Result Comment: Spa Director korina Kidney disease could be indicated at eGFRs of less than 60 ml/min/1.73m2. Kidney Failure is indicated at less than 15 ml/min/1.73m2 Performed By: #### 1 [id number], 05770979, 3077738 ####[facility] (DEFAULT)[address] [place] [address] 87400 Anion gap [Moles/Vol] 14.0 mmol/L Normal 5.0-19.0 [facility] Comment on above: Performed By: #### 1 [id number], 70086423, 7923677 ####[facility] (DEFAULT)[address] [place] [address] 96365 Calcium [Mass/Vol] 9.5 mg/dL Normal 8.9-10.3 [facility] Comment on above: Performed By: #### 1 [id number], 77728820, 3342661 ####[facility] (DEFAULT)[address] [place] [address] 36255 Chloride [Moles/Vol] 99 mmol/L Low 101-111 [facility] Comment on above: Performed By: #### 1 498141681, 02079589, 8546455 ####[facility] (DEFAULT)[address] [place] [address] 26023 CO2 [Moles/Vol] 28 mmol/L Normal 21-32 [facility] Comment on above: Performed By: #### 1 [id number], 23699206, 7140240 ####[facility] (DEFAULT)[address] [place] [address] 24690 Creatinine [Mass/Vol] 0.89 mg/dL Low 0.90-1.30 [facility] Comment on above: Performed By: #### 1 [id number], 81626999, 0831711 ####[facility] (DEFAULT)[address] [place] [address] 74776 Glucose [Mass/Vol] 135.0 mg/dL High 74.0-118.0 [facility] Comment on above: Performed By: #### 1 [id number], 49362052, 0510275 ####[facility] (DEFAULT)[address] [place] [address] 74186 Osmolality 278 mOsm/L Invalid Interpretation Code [facility] Comment on above: Performed By: #### 1 [id number], 86247534, 0889686 ####[facility] (DEFAULT)[address] [place] [address] 77575 Potassium [Moles/Vol] 4.1 mmol/L Normal 3.6-5.1 [facility] Comment on above: Performed By: #### 1 [id number], 19307654, 5150102 ####[facility] (DEFAULT)[address] [place] [address] 61170 Sodium [Moles/Vol] 137.0 mmol/L Normal 136.0-144.0 [facility] Comment on above: Performed By: #### 1 [id number], 14387615, 4867508 ####[facility] (DEFAULT)[address] [place] [address] 33773 Urea nitrogen [Mass/Vol] 19 mg/dL Normal 8-26 [facility] Comment on above: Performed By: #### 1 [id number], 63106659, 7129375 ####[facility] (DEFAULT)[address] [place] [address] 05968 Urea nitrogen/Creatinine [Mass ratio] 21.0 mg/mg High 4.6-16.2 [facility] Comment on above: Performed By: #### 1 [id number], 95625027, 5893439 ####[facility] (DEFAULT)[address] [place] [address] 96338 CBC w/ Auto Diffon 1 Erythrocyte distribution width (RBC) [Ratio] 13.4 % Normal 11.5-15.0 [facility] Comment on above: Performed By: #### 1 [id number], 97520584, 4760360 ####[facility] (DEFAULT)[address] [place] [address] Hematocrit (Bld) [Volume fraction] 48.0 % Normal 34.8-51.9 [facility] Comment on above: Performed By: #### 1 [id number], 25205022, 5745110 ####[facility] (DEFAULT)[address] [place] [address] Hemoglobin (Bld) [Mass/Vol] 15.5 g/dL Normal 11.8-17.7 [facility] Comment on above: Performed By: #### 1 [id number], 27124677, 9766624 ####[facility] (DEFAULT)[address] [place] [address] Instr WBC 7.3 x10 Invalid Interpretation Code [facility] Comment on above: Performed By: #### 1 [id number], 36725844, 5290632 ####[facility] (DEFAULT)[address] [place] [address] Man Diff? Auto Normal [facility] Comment on above: Performed By: #### 1 [id number], 73642272, 0852205 ####[facility] (DEFAULT)[address] [place] [address] 23628 MCH (RBC) [Entitic mass] 30 pg Normal 24-34 [facility] Comment on above: Performed By: #### 1 [id number], 97965797, 8805765 ####[facility] (DEFAULT)[address] [place] [address] 42440 MCHC (RBC) [Mass/Vol] 32 g/dL Normal 26-37 [facility] Comment on above: Performed By: #### 1 [id number], 98744645, 4003061 ####[facility] (DEFAULT)[address] [place] [address] 77159 MCV (RBC) [Entitic vol] 94 fL Normal 81-100 [facility] Comment on above: Performed By: #### 1 [id number], 05761576, 5147589 ####[facility] (DEFAULT)[address] [place] [address]5960 Platelet 196 x10 Normal 138-427 [facility] Comment on above: Performed By: #### 1 [id number] ####[facility] (DEFAULT)[address] [place] [address] 07515 Platelet mean volume (Bld) [Entitic vol] 10.3 fL High 6.3-10.2 [facility] Comment on above: Performed By: #### 1 [id number] ####[facility] (DEFAULT)[address] [place] [address] 30326 RBC 5.13 x10 Normal 3.70-5.30 [facility] Comment on above: Performed By: #### 1 [id number] ####[facility] (DEFAULT)[address] [place] [address] 15994 WBC 7.3 x10 Normal 3.5-10.5 [facility] Comment on above: Performed By: #### 1 [id number] ####[facility] (DEFAULT)[address] [place] [address] 08240 UA w Culture if Ind Standard on 02-04-2021 Breakpoint UA [facility] Comment on above: Performed By: #### 1 [id number] #### [facility] (DEFAULT) [address] [place] [address] 35615 Color (U) Yellow [facility] Comment on above: Performed By: #### 1 [id number] #### [facility] (DEFAULT) [address] [place] [address] 67874 Culture? No [facility] Comment on above: Result Comment: Resu lt created by rule GL_MAGR_ADD_UA_[id number] Result created by rule GL_MAGR_ADD_UA_CULT1 Performed By: #### 1 [id number] #### [facility] (DEFAULT) [address] [place] [address] 53620 Glucose (U) [Mass/Vol] Negative [facility] Comment on above: Performed By: #### 1 [id number] #### [facility] (DEFAULT) [address] [place] [address] 35543 Ketones Ql (U) Negative Normal [facility] Comment on above: Performed By: #### 1 [id number] #### [facility] (DEFAULT) [address] [place] [address] 09096 Micro? Not Indicated [facility] Comment on above: Result Comment: Resu lt created by rule GL_MAGR_ADD_UA_MICRO Performed By: #### 1 [id number] #### [facility] (DEFAULT) [address] [place] [address] 08206 UA Bilirubin Negative Normal [facility] Comment on above: Performed By: #### 1 [id number] #### [facility] (DEFAULT) [address] [place] [address] 02809 UA Blood Negative Normal NEGATIVE [facility] Comment on above: Performed By: #### 1 [id number] #### [facility] (DEFAULT) [address] [place] [address] 74235 UA Clarity CLEAR Normal CLEAR [facility] Comment on above: Performed By: #### 1 [id number] #### [facility] (DEFAULT) [address] [place] [address] 40488 UA Leuk Est Negative Normal NEGATIVE [facility] Comment on above: Performed By: #### 1 [id number] #### [facility] (DEFAULT) [address] [place] [address] 00219 UA Nitrite Negative Normal NEGATIVE [facility] Comment on above: Performed By: #### 1 [id number] #### [facility] (DEFAULT) [address] [place] [address] 03555 UA pH 6.0 Normal 5-8 [facility] Comment on above: Performed By: #### 1 [id number] #### [facility] (DEFAULT) [address] [place] [address] 64780 UA Protein Negative Normal NEGATIVE [facility] Comment on above: Performed By: #### 1 [id number] #### [facility] (DEFAULT) [address] [place] [address] 05955 UA Spec Grav >=1.030 Normal 1.001-1.035 [facility] Comment on above: Performed By: #### 1 [id number] #### [facility] (DEFAULT) [address] [place] [address] 37666 UA Urobilinogen 0.2 mg/dL Normal 0.2-1.0 [facility] Comment on above: Performed By: #### 1 [id number] #### [facility] (DEFAULT) [address] [place] [address] 58854 Urine Source Clean Catch [facility] Comment on above: Performed By: #### 1 [id number] #### [facility] (DEFAULT) [address] [place] [address] 06904 XR Bone Length Studies Scano [facility] 02-04-2021 XR Bone Length Studies Scanograms EXAM: [...] MD 02/08/21 7:27 am Technologist: Abilio AMADOR [facility] Echo 2D w doppler w color co mpleteOrdered By: jE Foster on 09-23-2020 [facility] Transthoracic Echocardiography Report (TTE) Patient Name HEBERLING Date of Study 09/23/2020 ZAINA Morales Date of 1950 Gender Male Age 69 year(s) Race Room Number Height: 72 inch, 182.88 cm Corporate ID [id number] Weight: 288 pounds, 130.6 kg # Patient Acct [id number] BSA: 2.49 m^2 BMI: 39.06 # kg/m^2 MR # [id number] [employer] Debi Lopez Interpreting Physician Ej Foster Fellow Referring Nurse Practitioner Interpreting Referring Physician Ej Foster Type of Study TTE procedure:2D Echocardiogram, M-Mode, Doppler, Color Doppler. Procedure Date Date: 09/23/2020 Start: 11:32 AM Study Location: [facility] Indications:Atrial fibrillation. History / Tech. [...] TR Velocity: 2.17 m/s Peak TR Gradient: 18.46137 mmHg Estimated RA Pressure: 3 mmHg Estimated PASP: 21.79 mmHg Diastology / Tissue Doppler Lateral Wall E' velocity:0.07 m/s Lateral Wall E/E':7.23 [email or web address] Work Phone: Shankar, pn Incoming Cardio Results From [facility] - 09/23/2020 5:27 PM EDT [facility] Transthoracic Echocardiography Report (TTE) Patient Name HEBERLING Date of Study 09/23/2020 ZAINA D Date of 1950 Gender Male Age 69 year(s) Race Room Number Height: 72 inch, 182.88 cm Corporate ID [id number] Weight: 288 pounds, 130.6 kg # Patient Acct [id number] BSA: 2.49 m^2 BMI: 39.06 # kg/m^2 MR # [id number] [employer] JessicaDebi Interpreting Physician Ej Foster Fellow Referring Nurse Practitioner Interpreting Referring Physician Ej Foster Type of Study TTE procedure:2D Echocardiogram, M-Mode, Doppler, Color Doppler. Procedure Date Date: 09/23/2020 Start: 11:32 AM Study Location: [facility] Indications:Atrial fibrillation. History / Tech. [...] TR Velocity: 2.17 m/s Peak TR Gradient: 18.68665 mmHg Estimated RA Pressure: 3 mmHg Estimated PASP: 21.79 mmHg Diastology / Tissue Doppler Lateral Wall E' velocity:0.07 m/s Lateral Wall E/E':7.23 [employer] Phone: [employer] Phone: Basic Metabolic Panelon - Anion gap [Moles/Vol] 10 mmol/L 9 - 17 mmol/L [place] Bun/Cre Ratio 21 [place] Calcium [Mass/Vol] 9.7 mg/dL 8.6 - 10. 4 mg/dL [place] Chloride [Moles/Vol] 101 mmol/L 98 - 10 7 mmol/L [place] CO2 [Moles/Vol] 28 mmol/L 20 - 31 mmol/L [place] Creatinine [Mass/Vol] 0.89 mg/dL 0.7 - 1.2 mg/dL [place] GFR >60 >60 mL/min [place] GFR Non- >60 >60 mL/min [place] Glucose [Mass/Vol] 101 mg/dL High 70 - 99 mg/dL [place] Interpretation and review of laboratory results Abnormal [place] Potassium [Moles/Vol] 4.3 mmol/L 3.7 - 5.3 mmol/L [place] Sodium [Moles/Vol] 139 mmol/L 135 - 144 mmol/L [place] Urea nitrogen [Mass/Vol] 19 mg/dL 8 - 23 mg/dL [place] Lipid Panelon 03-10-2020 Cholesterol [Mass/Vol] 162 mg/dL <200 [place] Comment on above: Cholesterol Guidelines: <200 Desirable 200-240 Borderline >240 Undesirable Cholesterol in HDL [Mass/Vol] 41 mg/dL >40 [place] Comment on above: HDL Guidelines: <40 Undesirable 40-59 Borderline >59 Desirable Cholesterol in LDL [Mass/Vol] 102 mg/dL 0 - 130 mg/dL [place] Comment on above: LDL Guidelines: <100 Desirable 100-129 Near to/above Desirable 130-159 Borderline >159 Undesirable Direct (measured) LDL and calculated LDL are not interchangeable tests. Cholesterol in VLDL [Mass/Vol] NOT REPORTED 1 - 30 mg/dL [place] Cholesterol.total/Ch olesterol in HDL [Mass ratio] 4 {ratio} <5 [place] Triglyceride [Mass/Vol] 97 mg/dL <150 [place] Comment on above: Triglyceride Guidelines: <150 Desirable 150-199 Borderline 200-499 High >499 Very high Based on AHA Guidelines for fasting triglyceride, November 2011. Metabolic Panelon 03-10-2020 GFR/1.73 sq M predicted among non-blacks MDRD (S/P/Bld) [Vol rate/Area] [place] Comment on above: Stage 1: Some [...] body mass. Additional eGFR calculator available at: http://www.KeepTrax/multiple_crcl_2012.htm Basic Metabolic Panelon 12-0 Anion gap [Moles/Vol] 9 mmol/L 9 - 17 mmol/L [place] Bun/Cre Ratio 16 [place] Calcium [Mass/Vol] 9.6 mg/dL 8.6 - 10. 4 mg/dL [place] Chloride [Moles/Vol] 101 mmol/L 98 - 10 7 mmol/L [place] CO2 [Moles/Vol] 29 mmol/L 20 - 31 mmol/L [place] Creatinine [Mass/Vol] 0.76 mg/dL 0.7 - 1.2 mg/dL [place] GFR >60 >60 mL/min [place] GFR Non- >60 >60 mL/min [place] Glucose [Mass/Vol] 118 mg/dL High 70 - 99 mg/dL [place] Interpretation and review of laboratory results Abnormal [place] Potassium [Moles/Vol] 4.7 mmol/L 3.7 - 5.3 mmol/L [place] Sodium [Moles/Vol] 139 mmol/L 135 - 144 mmol/L [place] Urea nitrogen [Mass/Vol] 12 mg/dL 8 - 23 mg/dL [place] CBCon 01-22-2020 Erythrocyte distribution width (RBC) [Ratio] 14.2 % 11.8 - 14.4 % [place] Hematocrit (Bld) [Volume fraction] 43.4 % 40.7 - 50.3 % [place] Hemoglobin (Bld) [Mass/Vol] 13.4 g/dL 13 - 17 g/dL [place] MCH (RBC) [Entitic mass] 28.9 pg 25.2 - 33.5 pg [place] MCHC (RBC) [Mass/Vol] 30.9 g/dL 28.4 - 34.8 g/dL [place] MCV (RBC) [Entitic vol] 93.7 fL 82.6 - 102.9 fL [place] Platelet mean volume (Bld) [Entitic vol] 9.9 fL 8.1 - 13.5 fL [place] Platelets (Bld) [#/Vol] 217 10*3/uL [place] RBC (Bld) [#/Vol] 4.63 10*6/uL 4.21 - 5.7 7 m/uL [place] WBC (Bld) [#/Vol] 0.0 10*3/uL 0.0 per 10 0 WBC [place] WBC (Bld) [#/Vol] 5.7 10*3/uL [place] ECHO Complete 2D W Doppler W Coloron 01-22-2020 [facility] Transthoracic Echocardiography Report (TTE) Patient Name HEBERLING Date of Study 01/22/2020 ZAINA Morales Date of 1950 Gender Male Age 69 year(s) Race Room Number Height: 73 inch, 185.42 cm Corporate ID [id number] Weight: 273 pounds, 123.8 kg # Patient Acct [id number] BSA: 2.46 m^2 BMI: 36.02 # kg/m^2 MR # [id number] [employer] Nini Todd Interpreting Physician Ej Foster Fellow Referring Nurse Practitioner Interpreting Referring Physician Ej Foster Type of Study TTE procedure:2D Echocardiogram, M-Mode, Doppler, Color Doppler. Procedure Date Date: 01/22/2020 Start: 09:22 AM Study Location: [facility] Indications:Atrial fibrillation, Dyspnea/SOB and History [...] Wall E' velocity:0.11 m/s Lateral Wall E/E':6.91 [facility], [place] Shankar, Abdirahman Incoming Cardio Results From [facility]/ - 01/22/2020 5:08 PM EST [facility] Transthoracic Echocardiography Report (TTE) Patient Name HEBERLING Date of Study 01/22/2020 ZAINA Morales Date of 1950 Gender Male Age 69 year(s) Race Room Number Height: 73 inch, 185.42 cm Corporate ID [id number] Weight: 273 pounds, 123.8 kg # Patient Acct [id number] BSA: 2.46 m^2 BMI: 36.02 # kg/m^2 MR # [id number] [employer] Work,Nini Interpreting Physician Ej Foster Fellow Referring Nurse Practitioner Interpreting Referring Physician Ej Foster Fellow Type of Study TTE procedure:2D Echocardiogram, M-Mode, Doppler, Color Doppler. Procedure Date Date: 01/22/2020 Start: 09:22 AM Study Location: [facility] Indications:Atrial fibrillation, Dyspnea/SOB and History [...] Wall E' velocity:0.11 m/s Lateral Wall E/E':6.91 [place] Hemoglobin A1Con 01-22-2020 Glucose [Mass/Vol] 123 mg/dL [place] Comment on above: The ADA and AACC rec ommend providing the estimated average glucose result to permit better patient understanding of their HBA1c result. HbA1c (Bld) [Mass fraction] 5.9 % 4 - 6 % [place] Metabolic Panelon 01-22-2020 GFR/1.73 sq M predicted among non-blacks MDRD (S/P/Bld) [Vol rate/Area] [place] Comment on above: Stage 1: Some [...] body mass. Additional eGFR calculator available at: http://www.KeepTrax/multiple_crcl_2012.htm Troponin Ion 01-22-2020 Troponin I.cardiac [Mass/Vol] NOT REPORTED [place] Troponin T.cardiac [Mass/Vol] NOT REPORTED <0.03 ng/mL [place] Troponin, High Sensitivity 15 ng/L 0 - 22 ng/L [place] Comment on above: High Sensitivity Troponin values cannot be compared with other Troponin methodologies. Patients with high levels of Biotin oral intake (i.e >5mg/day) may have falsely decreased Troponin levels. Samples collected within 8 hours of biotin intake may require additional information for diagnosis. BNPon 12-16-2019 Natriuretic peptide B (Bld) [Mass/Vol] 595.0 pg/mL Normal <=900.0 [facility] [place] [facility] Comment on above: Performed By: #### T ROP, BNP, CMP, CRP #### [facility] [address] [place], [place] [address] Cheryl Srinivasan CBC AUTO DIFFon 12-16-2019 Basophils (Bld) [#/Vol] 0.0 103/ul Normal 0.0-0.1 [facility] Comment on above: Performed By: #### C BC #### [facility] [address] [place] [id number] Cheryl Zarina Basophils/100 WBC (Bld) 0.1 % Critically low 0.2-2.0 [facility] [place] [facility] Comment on above: Performed By: #### C BC #### [facility] [address] [place], [place] [id number] Cheryl Zarina Eosinophils (Bld) [#/Vol] 0.0 103/ul Normal 0.0-0.7 [facility] [place] [facility] Comment on above: Performed By: #### C BC #### [facility] [address] [place], [place] [id number] Cheryl Zarina Eosinophils/100 WBC (Bld) 0.0 % Critically low 0.9-7.0 [facility] [place] [facility] Comment on above: Performed By: #### C BC #### [facility] [address] [place] [address] Cheryl Zarina Erythrocyte distribution width (RBC) [Ratio] 12.9 % Normal 11.0-15.0 [facility] Comment on above: Performed By: #### C BC #### [facility] [address] [place], [place] [id number] Cheryl Zarina Hematocrit (Bld) [Volume fraction] 45.2 % Normal 42.0-54.0 [facility] [place] [facility] Comment on above: Performed By: #### C BC #### [facility] [address] [place], [place] [id number] Cheryl Zarina Hemoglobin (Bld) [Mass/Vol] 15.1 g/dL Normal 14.0-18.0 [facility] [place] [facility] Comment on above: Performed By: #### C BC #### [facility] [address] [place], [place] [id number] Cheryl Zarina IG # 0.06 10e3/ul Critically high 0.00-0.03 [facility] Comment on above: Performed By: #### C BC #### [facility] [address] [place], [place] [id number] Cheryl Zarina IG % 0.6 % Critically high 0.0-0.5 [facility] Comment on above: Performed By: #### C BC #### [facility] [address] [place] [address] Cheryl Zarina Lymphocytes (Bld) [#/Vol] 1.0 103/ul Critically low 1.2-3.8 [facility] [place] [facility] Comment on above: Performed By: #### C BC #### [facility] [address] [place], [place] [id number] Cheryl Zarina Lymphocytes/100 WBC (Bld) 10.1 % Critically low 20.5-60.0 [facility] [place] [facility] Comment on above: Performed By: #### C BC #### [facility] [address] [place], [place] [id number] Cheryl Zarina MANUAL DIFF REQ NO Normal [facility] Comment on above: Performed By: #### C BC #### [facility] [address] [place], [place] [id number] Cheryl Zarina MCH (RBC) [Entitic mass] 30.0 pg Normal 25.9-34.0 [facility] [place] [facility] Comment on above: Performed By: #### C BC #### [facility] [address] [place] [address] Cheryl Zarina MCHC (RBC) [Mass/Vol] 33.4 g/dL Normal 29.9-35.2 [facility] [place] [facility] Comment on above: Performed By: #### C BC #### [facility] [address] [place], [place] [id number] Cheryl Zarina MCV (RBC) [Entitic vol] 89.7 fL Normal 80.0-94.0 [facility] [place] [facility] Comment on above: Performed By: #### C BC #### [facility] [address] [place], [place] [id number] Cheryl Zarina Monocytes (Bld) [#/Vol] 0.3 103/ul Normal 0.3-0.8 [facility] [place] [facility] Comment on above: Performed By: #### C BC #### [facility] [address] [place], [place] [id number] Cheryl Zarina Monocytes/100 WBC (Bld) 3.4 % Normal 1.7-12.0 [facility] [place] [facility] Comment on above: Performed By: #### C BC #### [facility] [address] [place] [address] Cheryl Zarina Neutrophils (Bld) [#/Vol] 8.3 103/ul Critically high 1.4-6.5 [facility] Comment on above: Performed By: #### C BC #### [facility] [address] [place], [place] [address] Cheryl Zarina Neutrophils/100 WBC (Bld) 85.8 % Critically high 43.0-75.0 [facility] Comment on above: Performed By: #### C BC #### [facility] [address] [place], [place] [address] Cheryl Zarina Platelet mean volume (Bld) [Entitic vol] 9.7 fL Normal 9.5-13.5 [facility] [place] [facility] Comment on above: Performed By: #### C BC #### [facility] [address] [place], [place] [address] Cheryl Zarina Platelets (Bld) [#/Vol] 270 103/ul Normal 150-450 [facility] [place] [facility] Comment on above: Performed By: #### C BC #### [facility] [address] [place], [place] [address] Cheryl Zarina RBC (Bld) [#/Vol] 5.04 106/ul Normal 4.70-6.10 [facility] Comment on above: Performed By: #### C BC #### [facility] [address] [place], [place] [address] Cheryl Zarina WBC (Bld) [#/Vol] 9.7 103/ul Normal 4.0-11.0 [facility] Comment on above: Performed By: #### C BC #### [facility] [address] [place], [place] [address] Cheryl Zarina CRPon 12-16-2019 CRP [Mass/Vol] 12.3 mg/dL Critically high <=1.0 [facility] Comment on above: Performed By: #### C BC #### [facility] [address] [place], [place] [address] Cheryl Zarina CTA CHEST WO W CONon [...] RUPESH ULRICH Date: 2019-12-16 05:43 Normal [facility] [place] [facility] D-DIMERon 12-16-2019 D-DIMER COMMENTS SEE BELOW Normal [facility] Comment on above: Result Comment: Incr [...] By: #### D DIM, PT, PTT #### [facility] [address] [place], [place] [address] Cheryl Srinivasan Fibrin D-dimer FEU IA (Bld) [Mass/Vol] 0.84 ug/mL Critically high 0.19-0.50 [facility] Comment on above: Result Comment: test repeated critcal value verified Performed By: #### D DIM, PT, PTT #### [facility] [address] [place], [place] [address] Cheryl Srinivasan LACTATE/LACTIC ACIDon 2019 Lactate [Moles/Vol] 1.8 mmol/L Normal 0.7-2.0 [facility] Comment on above: Performed By: #### L ACT #### [facility] [address] [place] [id number] Cheryl Srinivasan PROF 14(COMP METB)on 020 Albumin [Mass/Vol] 3.2 g/dL Critically low 3.5-5.0 [facility] Comment on above: Performed By: #### T ROP, BNP, CMP, CRP #### [facility] [address] [place] [id number] Cheryljason Srinivasan Albumin/Globulin [Mass ratio] 0.8 {ratio} Normal [facility] Comment on above: Performed By: #### T ROP, BNP, CMP, CRP #### [facility] [address] [place], [place] [id number] Cheryl Zarina ALP [Catalytic activity/Vol] 85 U/L Normal 38-126 [facility] [place] [facility] Comment on above: Performed By: #### T ROP, BNP, CMP, CRP #### [facility] [address] [place], [place] [id number] Cheryl Zarina ALT [Catalytic activity/Vol] 63 U/L Normal 21-72 [facility] [place] [facility] Comment on above: Performed By: #### T ROP, BNP, CMP, CRP #### [facility] [address] [place] [id number] Cheryl Zarina Anion gap [Moles/Vol] 14.2 mmol/L Normal [facility] [place] [facility] Comment on above: Performed By: #### T ROP, BNP, CMP, CRP #### [facility] [address] [place], [place] [address] Cheryl Zarina AST [Catalytic activity/Vol] 53 U/L Normal 17-59 [facility] [place] [facility] Comment on above: Performed By: #### T ROP, BNP, CMP, CRP #### [facility] [address] [place], [place] [phone] Cheryl Zarina Bilirubin Ql (U) 1.0 mg/dL Normal 0.2-1.[address] [facility] Comment on above: Performed By: #### T ROP, BNP, CMP, CRP #### [facility] [address] [place] [address] Cheryl Zarina Calcium [Mass/Vol] 9.0 mg/dL Normal 8.4-10.2 [facility] Comment on above: Performed By: #### T ROP, BNP, CMP, CRP #### [facility] [address] [place] [address] Cheryl Zarina Chloride [Moles/Vol] 96 mmol/L Critically low 98-107 [facility] Comment on above: Performed By: #### T ROP, BNP, CMP, CRP #### [facility] [address] [place] [address] Cheryl Zarina CO2 [Moles/Vol] 25.8 mmol/L Normal 22.0-30.0 [facility] Comment on above: Performed By: #### T ROP, BNP, CMP, CRP #### [facility] [address] [place] [address] Cheryl Zarina Creatinine [Mass/Vol] 0.90 mg/dL Normal 0.66-1.25 [facility] Comment on above: Performed By: #### T ROP, BNP, CMP, CRP #### [facility] [address] [place] [address] Cheryl Zarina EGFR-AF [place] >60 Normal >=60 [facility] Comment on above: Performed By: #### T ROP, BNP, CMP, CRP #### [facility] [address] [place] [address] Cheryl Zarina EGFR-NON AF [place] >60 Normal >=60 [facility] Comment on above: Performed By: #### T ROP, BNP, CMP, CRP #### [facility] [address] [place] [address] Cheryl Zarina Globulin (S) [Mass/Vol] 4.1 g/dL Normal [facility] Comment on above: Performed By: #### T ROP, BNP, CMP, CRP #### [facility] [address] [place] [address] Cheryl Zarina Glucose [Mass/Vol] 146 mg/dL Critically high 74-106 [facility] Comment on above: Performed By: #### T ROP, BNP, CMP, CRP #### [facility] [address] [place] [address] Cheryl Zarina Potassium [Moles/Vol] 4.0 mmol/L Normal 3.4-5.0 [facility] Comment on above: Performed By: #### T ROP, BNP, CMP, CRP #### [facility] [address] [place] [address] Cheryl Zarina Protein [Mass/Vol] 7.3 g/dL Normal 6.1-8.2 [facility] Comment on above: Performed By: #### T ROP, BNP, CMP, CRP #### [facility] [address] [place] [address] Cheryl Zarina Sodium [Moles/Vol] 132 mmol/L Critically low 137-145 [facility] Comment on above: Performed By: #### T ROP, BNP, CMP, CRP #### [facility] [address] [place] [address] Cheryl Zarina Urea nitrogen [Mass/Vol] 18.0 mg/dL Normal 9.0-20.0 [facility] Comment on above: Performed By: #### T ROP, BNP, CMP, CRP #### [facility] [address] [place] [address] Cheryl Zarina Urea nitrogen/Creatinine [Mass ratio] 20.0 mg/mg Normal [facility] Comment on above: Performed By: #### T ROP, BNP, CMP, CRP #### [facility] [address] [place] [address] Cheryl Zarina PROTIMEon 12-16-2019 INR Coag (PPP) [Relative time] 0.97 {INR} Normal [facility] Comment on above: Performed By: #### D DIM, PT, PTT #### [facility] [address] [place] [address] Cheryl Zarina PT Coag (PPP) [Time] PLEASE NOTE: NORMAL RANGE CHANGE 10-31-2013 DUE TO REAGENT LOT CHANGE Normal [facility] Comment on above: Performed By: #### D DIM, PT, PTT #### [facility] [address], [place] [address] Cheryl Srinivasan PT Coag (PPP) [Time] 10.3 s Normal 9.0-11.6 [facility] [place] [facility] Comment on above: Performed By: #### D DIM, PT, PTT #### [facility] [address], [place] [address] Cheryljason Srinivasan PT Coag (PPP) [Time] SEE BELOW Normal [facility] [place] [facility] Comment on above: Result Comment: CHEMO RED INR: 2.0 - 3.0 CONDITIONS NOT LISTED BELOW 2.5 - 3.5 FOR PROSTHETIC HEART VALVE REPLACEMENT 2.5 - 3.5 RECURRENT THROMBOSIS Performed By: #### D DIM, PT, PTT #### [facility] [address] [place], [place] [id number] Cheryl Srinivasan PTTon 12-16-2019 aPTT Coag (Bld) [Time] PLEASE NOTE: NORMAL RANGE CHANGE 01-07-2015 DUE TO REAGENT LOT CHANGE Normal [facility] [place] [facility] Comment on above: Performed By: #### D DIM, PT, PTT #### [facility] [address] [place] [id number] Cheryl Srinivasan aPTT Coag (Bld) [Time] 26.0 s Normal 22.3-36.2 [facility] [place] [facility] Comment on above: Performed By: #### D DIM, PT, PTT #### [facility] [address] [place] [id number] Cheryl Srinivasan Rapid Covid-19 PCRon 020 [employer] LDT Info SEE BELOW Normal [facility] Comment on above: Result Comment: This test is not yet approved or cleared by the [place] Food and Drug Administration (FDA) . This test was developed by [employer], [place]. The performance characteristics of this test were validated by [facility] [place] [facility]. The results are not intended to be used as the sole means for clinical diagnosis or patient management decisions. [facility] [place] [facility] is authorized under Clinical Laboratory Improvement Amendments (CLIA) to perform high-complexity testing. When diagnostic testing is negative, the possibility of a false negative should be considered in the context of a patients recent exposures and the presence of clinical signs and symptoms consistent with SARS-CoV-2. Performed By: #### C VDRPD #### [facility] [address] [place] [id number] Cheryl Srinivasan SARS-CoV-2 DETECTED NOT DETECTED [facility] [place] [facility] Comment on above: Result Comment: . Performed By: #### C VDRPD #### [facility] [address] [place], [place] [id number] Cheryl Srinivasan TROPONIN - Ion 12-16-2019 Troponin I.cardiac [Mass/Vol] ng/mL Normal <=0.034 [facility] [place] [facility] Comment on above: Performed By: #### C BC #### [facility] [address] [place] [address] Cheryl Srinivasan Troponin I.cardiac [Mass/Vol] SEE BELOW Normal [facility] [place] [facility] Comment on above: Result Comment: <0.0 34 ng/ml NEGATIVE 0.034-0.119 INDETERMINATE 0.120 AMI CUT OFF Performed By: #### C BC #### [facility] [address] [place], [place] [id number] Cheryl Srinivasan Vital Signs Date Time Vital Sign Value Performing Clinician Ekta bland 09-18-2024 12:54-0400 Body height 181.6 cm Kenia Cordonayush WELFARE ANALYST Work Phone: [facility] 09-18-2024 12:54-0400 Body mass index (BMI) [Ratio] 42.08 kg/m2 Kenia Cordonayush WELFARE ANALYST Work Phone: [facility] 09-18-2024 12:54-0400 Body weight 138.8 kg Kenia Cordonayush WELFARE ANALYST Work Phone: [facility] 09-18-2024 12:54-0400 Diastolic blood pressure 78 mm[Hg] Kenia Cordonayush WELFARE ANALYST Work Phone: [facility] 09-18-2024 12:54-0400 Heart rate 78 /min Kenia Jonathan WELFARE ANALYST Work Phone: [facility] 09-18-2024 12:54-0400 Respiratory rate 18 /min Kenia Jonathan WELFARE ANALYST Work Phone: [facility] 09-18-2024 12:54-0400 SaO2% (BldA) [Mass fraction] 98 % Kenia Castillo WELFARE ANALYST Work Phone: [facility] 09-18-2024 12:54-0400 Systolic blood pressure 130 mm[Hg] Kenia Castillo WELFARE ANALYST Work Phone: [facility] 09-03-2024 12:54-0400 Body height 181.6 cm Arianna Lou DPM Work Phone: [facility] 09-03-2024 12:54-0400 Body mass index (BMI) [Ratio] 43.51 kg/m2 Arianna Lou DPM Work Phone: [facility] 09-03-2024 12:54-0400 Body weight 143.52 kg Arianna Lou DPM Work Phone: [facility] 07-09-2024 13:53-0400 Body height 181.6 cm Kenia Castillo WELFARE ANALYST Work Phone: [facility] 07-09-2024 13:53-0400 Body mass index (BMI) [Ratio] 43.51 kg/m2 Kenia Castillo WELFARE ANALYST Work Phone: [facility] 07-09-2024 13:53-0400 Body weight 143.52 kg Kenia Castillo WELFARE ANALYST Work Phone: [facility] 07-09-2024 13:53-0400 Diastolic blood pressure 72 mm[Hg] Kenia Castillo WELFARE ANALYST Work Phone: [facility] 07-09-2024 13:53-0400 Heart rate 61 /min Kenia Castillo WELFARE ANALYST Work Phone: [facility] 07-09-2024 13:53-0400 SaO2% (BldA) [Mass fraction] 96 % Kenia Castillo WELFARE ANALYST Work Phone: [facility] 07-09-2024 13:53-0400 Systolic blood pressure 124 mm[Hg] Kenia Castillo WELFARE ANALYST Work Phone: [facility] 05-20-2024 13:54-0400 Body height 181.6 cm Kenia Castillo WELFARE ANALYST Work Phone: [facility] 05-20-2024 13:54-0400 Body mass index (BMI) [Ratio] 42.69 kg/m2 Kenia Castillo WELFARE ANALYST Work Phone: [facility] 05-20-2024 13:54-0400 Body temperature 98.91 [degF] Kenia Castillo WELFARE ANALYST Work Phone: [facility] 05-20-2024 13:54-0400 Body weight 140.8 kg Kenia Castillo WELFARE ANALYST Work Phone: [facility] 05-20-2024 13:54-0400 Diastolic blood pressure 64 mm[Hg] Kenia Castillo WELFARE ANALYST Work Phone: [facility] 05-20-2024 13:54-0400 Heart rate 68 /min Kenia Castillo WELFARE ANALYST Work Phone: [facility] 05-20-2024 13:54-0400 SaO2% (BldA) [Mass fraction] 94 % Kenia Castillo WELFARE ANALYST Work Phone: [facility] 05-20-2024 13:54-0400 Systolic blood pressure 126 mm[Hg] Kenia Castillo WELFARE ANALYST Work Phone: [facility] 02-23-2024 12:30-0500 Diastolic blood pressure 97 mm[Hg] Ej Foster MD Work Phone: [facility] 02-23-2024 12:30-0500 Heart rate 57 /min Ej Foster MD Work Phone: [facility] 02-23-2024 12:30-0500 Respiratory rate 17 /min Ej Foster MD Work Phone: [facility] 02-23-2024 12:30-0500 SaO2% (BldA) [Mass fraction] 96 % Ej Foster MD Work Phone: [facility] 02-23-2024 12:30-0500 Systolic blood pressure 131 mm[Hg] Ej Foster MD Work Phone: [facility] [employer] 02-23-2024 12:11-0500 Body temperature 96.8 [degF] Ej Foster MD Work Phone: [email or web address] 02-20-2024 14:13-0500 Body height 181.6 cm Kenia Castillo WELFARE ANALYST Work Phone: [facility] 02-20-2024 14:13-0500 Body mass index (BMI) [Ratio] 43.07 kg/m2 Kenia Castillo WELFARE ANALYST Work Phone: [facility] 02-20-2024 14:13-0500 Body weight 142.07 kg Kenia Castillo WELFARE ANALYST Work Phone: [facility] 02-20-2024 14:13-0500 Diastolic blood pressure 60 mm[Hg] Kenia Castillo WELFARE ANALYST Work Phone: [facility] 02-20-2024 14:13-0500 Heart rate 98 /min Kenia Castillo WELFARE ANALYST Work Phone: [facility] 02-20-2024 14:13-0500 SaO2% (BldA) [Mass fraction] 95 % Kenia Castillo WELFARE ANALYST Work Phone: [facility] 02-20-2024 14:13-0500 Systolic blood pressure 120 mm[Hg] Kenia Castillo WELFARE ANALYST Work Phone: [facility] 02-05-2024 14:54-0500 Body height 182.9 cm Mth 1 [employer] 02-05-2024 14:54-0500 Body mass index (BMI) [Ratio] 41.88 kg/m2 Mth 1 [facility] 02-05-2024 14:54-0500 Body weight 140.1 kg Mth 1 [facility] [employer] 02-05-2024 14:54-0500 Diastolic blood pressure 77 mm[Hg] Mth 1 [facility] 02-05-2024 14:54-0500 Systolic blood pressure 120 mm[Hg] Mth 1 [facility] 12-26-2023 13:04-0500 Body mass index (BMI) [Ratio] 38.92 kg/m2 Jeannine Moseleyk WELFARE ANALYST Work Phone: [facility] 12-26-2023 13:04-0500 Body temperature 97.39 [degF] Jeannine Blanchardtrick WELFARE ANALYST Work Phone: [facility] 12-26-2023 13:04-0500 Body weight 133.81 kg Jeannine Moseleyk WELFARE ANALYST Work Phone: [facility] 12-26-2023 13:04-0500 Diastolic blood pressure 74 mm[Hg] Jeannine Blanchardtrick WELFARE ANALYST Work Phone: [facility] 12-26-2023 13:04-0500 Systolic blood pressure 160 mm[Hg] Jeannine Blanchardtrick WELFARE ANALYST Work Phone: [facility] 11-15-2023 12:53-0400 Body height 185.4 cm Arianna Kendall DPM Work Phone: [facility] 11-15-2023 12:53-0400 Body mass index (BMI) [Ratio] 40.13 kg/m2 Arianna Lou DPM Work Phone: [facility] 11-15-2023 12:53-0400 Body weight 137.98 kg Arianna Lou DPM Work Phone: [facility] 10-11-2023 08:58-0400 Body mass index (BMI) [Ratio] 40.13 kg/m2 Kenia Cordonjaredfito WELFARE ANALYST Work Phone: [facility] 10-11-2023 08:58-0400 Body temperature 96.69 [degF] Kenia Castillo WELFARE ANALYST Work Phone: [facility] 10-11-2023 08:58-0400 Body weight 137.98 kg Kenia Castillo WELFARE ANALYST Work Phone: [facility] 10-11-2023 08:58-0400 Diastolic blood pressure 86 mm[Hg] Kenia Castillo WELFARE ANALYST Work Phone: [facility] 10-11-2023 08:58-0400 Heart rate 67 /min Kenia Castillo WELFARE ANALYST Work Phone: [facility] 10-11-2023 08:58-0400 SaO2% (BldA) [Mass fraction] 95 % Kenia Castillo WELFARE ANALYST Work Phone: [facility] 10-11-2023 08:58-0400 Systolic blood pressure 132 mm[Hg] Kenia Castillo WELFARE ANALYST Work Phone: [facility] 02-12-2020 09:31-0500 Pulse Oximetry 98 % [facility] [place] 02-12-2020 09:30-0500 BP Diastolic 73 mm[Hg] [facility] [place] 02-12-2020 09:30-0500 BP Systolic 135 mm[Hg] [facility] [place] 02-12-2020 09:30-0500 Pulse (Heart Rate) 56 /min [facility] [place] 02-12-2020 09:30-0500 Respiratory Rate 22 /min [facility] [place] 02-12-2020 07:14-0500 BMI (Body Mass Index) 36.89 kg/m2 [facility] [place] 02-12-2020 07:14-0500 Body weight 123.38 kg [facility] [place] 02-12-2020 07:14-0500 Height 182.9 cm [facility] [place] Encounters Encounter Date Encounter Type Care Provider Facility Start: 10-07-2024 End: 10-07-2024 ambulatory Mony Sharpe SEMI DRIVER [facility] Comment on above: Spinal stenosis, lum bar region with neurogenic claudication (Primary Dx); Bilateral leg weakness; Left thigh pain Start: 10-07-2024 End: 10-07-2024 Bamboo flowsheet Mony Sharpe SEMI DRIVER [facility] Start: 10-07-2024 End: 10-07-2024 Bamboo flowsheet Mony Sharpe SEMI DRIVER [facility] Start: 2024 End: 2024 Bamboo flowsheet Maddie Kelbley SEMI DRIVER [facility] Start: 2024 End: 2024 Bamboo flowsheet Maddie Sandersy SEMI DRIVER [facility] Start: 2024 End: 2024 ambulatory Maddie Sandersy SEMI DRIVER [facility] Comment on above: Spinal stenosis, lum bar region with neurogenic claudication (Primary Dx); Bilateral leg weakness; Left thigh pain Start: 09-26-2024 End: 09-26-2024 ambulatory Mdadie Sandersy SEMI DRIVER [facility] Comment on above: Spinal stenosis, lum bar region with neurogenic claudication (Primary Dx); Bilateral leg weakness; Left thigh pain Start: 09-26-2024 End: 09-26-2024 Bamboo flowsheet Maddie Sandersy SEMI DRIVER [facility] Start: 09-26-2024 End: 09-26-2024 Bamboo flowsheet Maddie Sandersy SEMI DRIVER [facility] Start: 09-23-2024 End: 09-23-2024 ambulatory Maddie Sandersy SEMI DRIVER [facility] Comment on above: Spinal stenosis, lum bar region with neurogenic claudication (Primary Dx); Bilateral leg weakness; Left thigh pain Start: 09-23-2024 End: 09-23-2024 Bamboo flowsheet Maddie Sandersy SEMI DRIVER [facility] Start: 09-23-2024 End: 09-23-2024 Bamboo flowsheet Maddie Sandersy SEMI DRIVER [facility] Start: 09-19-2024 End: 09-19-2024 Bamboo flowsheet Mony Brink SEMI DRIVER [facility] Start: 09-19-2024 End: 09-19-2024 Bamboo flowsheet Mony Brink SEMI DRIVER [facility] Start: 09-19-2024 End: 09-19-2024 ambulatory Mony Brink SEMI DRIVER [facility] Comment on above: Spinal stenosis, lum bar region with neurogenic claudication (Primary Dx); Bilateral leg weakness; Left thigh pain Start: 09-18-2024 End: 09-18-2024 Bamboo flowsheet Kenia Castillo NP Work Phone: [facility] Start: 09-18-2024 End: 09-18-2024 Bamboo flowsheet Kenia Castillo WELFARE ANALYST Work Phone: [facility] Start: 09-18-2024 End: 09-18-2024 Office outpatient visit 25 minutes Kenia Castillo WELFARE ANALYST Work Phone: [facility] Comment on above: Primary hypertension (Primary Dx); Type 2 diabetes mellitus with diabetic peripheral angiopathy without gangrene, without long-term current use of insulin (HCC); Benign prostatic hyperplasia with lower urinary tract symptoms, symptom details unspecified; Paroxysmal atrial fibrillation (HCC); Morbid (severe) obesity due to excess calories ([facility]-HCC) Start: 09-18-2024 End: 09-18-2024 ambulatory KENIA JONATHAN Not Available Start: 09-16-2024 End: 09-16-2024 ambulatory Mony Brink SEMI DRIVER [facility] Comment on above: Spinal stenosis, lum bar region with neurogenic claudication (Primary Dx); Bilateral leg weakness; Left thigh pain Start: 09-16-2024 End: 09-16-2024 Bamboo flowsheet Mony Brink SEMI DRIVER [facility] Start: 09-16-2024 End: 09-16-2024 Bamboo flowsheet Mony Brink SEMI DRIVER [facility] Start: 09-09-2024 End: 09-09-2024 ambulatory Maddie Kelbley SEMI DRIVER [facility] Comment on above: Spinal stenosis, lum bar region with neurogenic claudication (Primary Dx); Bilateral leg weakness Start: 09-09-2024 End: 09-09-2024 Bamboo flowsheet Maddie Kelbley SEMI DRIVER [facility] Start: 09-09-2024 End: 09-09-2024 Bamboo flowsheet Maddie Kelbley SEMI DRIVER [facility] Start: 09-03-2024 End: 09-03-2024 Bamboo flowsheet Arianna Lou DPM Work Phone: [facility] Start: 09-03-2024 End: 09-03-2024 Bamboo flowsheet Arianna Lou DPM Work Phone: [facility] Start: 09-03-2024 End: 09-03-2024 Patient encounter procedure Arianna Lou DPM Work Phone: [facility] Comment on above: Dermatophytosis of n ail (Primary Dx); Dystrophic nail; Pain around toenail, right foot; Pain around toenail, left foot Start: 09-03-2024 End: 09-03-2024 ambulatory ARIANNA LOU Not Available Start: 08-30-2024 End: 08-30-2024 Bamboo flowsheet Valerie Argueta PT [facility] Start: 08-30-2024 End: 08-30-2024 Bamboo flowsheet Valerie Argueta PT [facility] Start: 08-30-2024 End: 08-30-2024 ambulatory Valerie Argueta PT [facility] Comment on above: Spinal stenosis, lum bar region with neurogenic claudication (Primary Dx); Bilateral leg weakness Start: 08-15-2024 End: 08-26-2024 Telephone encounter Valerie Argueta PT [facility] Comment on above: PT Initial Eval (Spi nal Stenosis/ b/l leg weakness); Call Back; Call Back x2 (He contacted and scheduled 08/30/24 for PT Eval w/ Leroy Argueta, PT.) Start: 08-05-2024 End: 08-05-2024 ambulatory Ever Guillen MD Facility:[facility] Start: 07-23-2024 End: 07-24-2024 Follow-up encounter Kenia Castillo NP Work Phone: [facility] Start: 07-23-2024 End: 07-23-2024 Telephone encounter Bernie Adam MD Work Phone: [facility] Start: 07-22-2024 End: 07-22-2024 Orders Only Kenia Castillo NP Work Phone: [facility] Comment on above: Decreased renal func tion Start: 07-09-2024 End: 07-09-2024 Bamboo flowsheet Kenia Castillo WELFARE ANALYST Work Phone: [facility] Start: 07-09-2024 End: 07-09-2024 Bamboo flowsheet Kenia Castillo WELFARE ANALYST Work Phone: [facility] Start: 07-09-2024 End: 07-09-2024 Office outpatient visit 25 minutes Kenia Castillo WELFARE ANALYST Work Phone: [facility] Comment on above: Localized edema (Cassandra andrew Dx); Restless legs syndrome; POOL (obstructive sleep apnea); Polio; Primary hypertension (CMS/HCC); Benign prostatic hyperplasia with nocturia; Gastroesophageal reflux disease without esophagitis; Type 2 diabetes mellitus with diabetic peripheral angiopathy without gangrene (CMS/HCC); Other hyperlipidemia; Paroxysmal atrial fibrillation (CMS/HCC); Insomnia, unspecified type; Lumbar radiculopathy; 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 Start: 07-09-2024 End: 07-09-2024 Telephone encounter Kenia Cordonjaredfito WELFARE ANALYST Work Phone: [facility] Start: 07-09-2024 End: 07-09-2024 ambulatory KENIA CORDONJaredFITO Not Available Start: 07-08-2024 End: 07-09-2024 Refill Kenia Castillo WELFARE ANALYST Work Phone: [facility] Comment on above: Paroxysmal atrial fi brillation (CMS/HCC) Start: 06-28-2024 End: 06-28-2024 Telephone encounter Kenia Cordonayush WELFARE ANALYST Work Phone: [facility] Start: 05-23-2024 End: 05-23-2024 Telephone encounter Bernie Adam MD Work Phone: [facility] Comment on above: Acute cough (Primary Dx) Start: 05-20-2024 End: 05-20-2024 Bamboo flowsheet Kenia Cordonayush WELFARE ANALYST Work Phone: [facility] Start: 05-20-2024 End: 05-20-2024 Bamboo flowsheet Kenia Cordonaysuh WELFARE ANALYST Work Phone: [facility] Start: 05-20-2024 End: 05-20-2024 Office outpatient visit 25 minutes Kenia Castillo NP Work Phone: [facility] Comment on above: Type 2 diabetes magnolia itus without complication, without long- term current use of insulin (Primary Dx); Acute bacterial conjunctivitis of both eyes; Non-recurrent acute suppurative otitis media of left ear without spontaneous rupture of tympanic membrane Start: 05-20-2024 End: 05-20-2024 ambulatory KENIA CASTILLO Not Available Start: 04-29-2024 End: 04-29-2024 ambulatory ARIANNA LOU Not Available Start: 04-01-2024 End: 04-01-2024 ambulatory [facility] Start: 03-22-2024 End: 03-22-2024 Refill Kenia Castillo WELFARE ANALYST Work Phone: [facility] Comment on above: Primary hypertension ([facility]/HCC) Start: 03-04-2024 End: 03-04-2024 ambulatory Ever Guillen MD [facility] Start: 02-23-2024 End: 02-25-2024 [facility] Start: 02-23-2024 End: 02-25-2024 Subsequent hospital visit by physician Ej Foster MD Work Phone: [facility] Comment on above: Paroxysmal atrial fi brillation (HCC) (Primary Dx); PAF (paroxysmal atrial fibrillation) ([facility]) AF (paroxysmal atria l fibrillation) ([facility]) Start: 02-20-2024 End: 02-20-2024 ambulatory KENIA CASTILLO Not Available Start: 02-20-2024 End: 02-20-2024 Bamboo flowsheet Kenia Castillo WELFARE ANALYST Work Phone: [facility] Start: 02-20-2024 End: 02-20-2024 Bamboo flowsheet Kenia Castillo WELFARE ANALYST Work Phone: [facility] Start: 02-20-2024 End: 02-20-2024 Patient encounter procedure Keina Castillo NP Work Phone: [facility] Comment on above: Encounter for [facility] ss examination (Primary Dx); Mixed hyperlipidemia [...] 02-20-2024 End: 02-20-2024 Patient encounter status Kenia Castillo NP Work Phone: [facility] Start: 02-19-2024 End: 02-19-2024 Edilma Adam MD Work Phone: [facility] Comment on above: Type 2 diabetes magnolia itus with diabetic peripheral angiopathy without gangrene (CMS/HCC) Start: 02-05-2024 End: 02-07-2024 ambulatory [facility] Start: 02-05-2024 End: 02-07-2024 Subsequent hospital visit by physician [address] Non-Invasive Cardiology Comment on above: Permanent [...] Start: 01-01-2024 End: 01-01-2024 Orders Only Jeannine Naty Evangelista WELFARE ANALYST Work Phone: [facility] Comment on above: Bronchitis (Primary Dx) Start: 12-29-2023 End: 02-12-2024 Orders Only Jeannine Naty Evangelista WELFARE ANALYST Work Phone: [facility] Comment on above: Bronchitis Start: 12-28-2023 End: 12-28-2023 Refill Bernie Adam MD Work Phone: [facility] Comment on above: Bronchitis Bronchitis (Primary Dx) Start: 12-26-2023 End: 12-26-2023 Bamboo flowsheet Jeannine Rodríguezzpatrick WELFARE ANALYST Work Phone: [facility] Start: 12-26-2023 End: 12-26-2023 Bamboo flowsheet Jeannine Naty Evangelista WELFARE ANALYST Work Phone: [facility] Start: 12-26-2023 End: 12-26-2023 Office outpatient visit 15 minutes Jeannine Perezpatrick WELFARE ANALYST Work Phone: [facility] Comment on above: Acute right otitis m edia (Primary Dx); Bronchitis Start: 12-26-2023 End: 12-26-2023 ambulatory JEANNINE PEREZPATRICK Not Available Start: 12-21-2023 End: 12-21-2023 Telephone encounter Bernie Adam MD Work Phone: [facility] Start: 11-15-2023 End: 11-15-2023 Bamboo flowsheet Arianna Lou DPM Work Phone: [facility] Start: 11-15-2023 End: 11-15-2023 Bamboo flowsheet Arianna Lou DPM Work Phone: [facility] Start: 11-15-2023 End: 11-15-2023 Patient encounter procedure Arianna Lou DPM Work Phone: [facility] Comment on above: Dermatophytosis of n ail (Primary Dx); Dystrophic nail; Pain around toenail, right foot; Pain around toenail, left foot Start: 11-15-2023 End: 11-15-2023 ambulatory ARIANNA LOU Not Available Start: 11-13-2023 End: 11-13-2023 ambulatory Ever Guillen MD Facility:[facility] Start: 10-23-2023 End: 10-24-2023 Refill Kenia Castillo NP Work Phone: [facility] Comment on above: Paroxysmal atrial fi brillation (CMS/HCC) Start: 10-23-2023 End: 10-23-2023 ambulatory Ever Guillen MD Facility:[facility] Start: 10-11-2023 End: 10-11-2023 Bamboo flowsheet Kenia Castillo NP Work Phone: [facility] Start: 10-11-2023 End: 10-11-2023 Bamboo flowsheet Kenia Castillo WELFARE ANALYST Work Phone: [facility] Start: 10-11-2023 End: 10-11-2023 Office outpatient visit 15 minutes Kenia Castillo NP Work Phone: [facility] Comment on above: Dental abscess (Prim ora Dx) Start: 10-11-2023 End: 10-11-2023 ambulatory KENIA CASTILLO Not Available Start: 09-18-2023 End: 09-18-2023 ambulatory Ever Guillen MD Facility:[facility] Start: 06-14-2023 End: 06-30-2023 ambulatory DAVID AWAD [facility] Start: 05-23-2023 End: 05-23-2023 ambulatory Trenton Redd Facility:[facility] Start: 05-23-2023 End: 05-23-2023 ambulatory WELFARE ANALYST-C Jeannine Moseleyk Work Phone: [facility] Work Phone: Start: 05-23-2023 End: 05-23-2023 Patient encounter procedure WELFARE ANALYST-C Jeannine Moseleyk Work Phone: [facility] [address] Work Phone: Start: 05-11-2023 End: 05-11-2023 ambulatory WELFARE ANALYST-C Jeannine Moseleyk Work Phone: [facility] Work Phone: Start: 05-11-2023 End: 05-11-2023 Patient encounter procedure WELFARE ANALYST-C Jeannine Evangelista Work Phone: [facility]-MRI [address] Work Phone: Start: 03-30-2023 Telephone encounter Alex lantigua PT Work Phone: [facility] Comment on above: re: [employer] for PT (He called noting he had just gotten verification per [employer] that if referring provider refers for therapy then PT would be covered. He gave a reference # [id number].) Start: 03-29-2023 Telephone encounter Alex lantigua PT Work Phone: [facility] [...] so.) Start: 03-28-2023 Telephone encounter Maddie Noa SEMI DRIVER [facility] Comment on above: re: PT today (Called and noted auth is still pending for PT and in need to cx today; I informed I will keep up-to-date come his next on 03/30.) Start: 03-23-2023 Bamboo flowsheet Alex kinney PT Work Phone: [facility] Start: 03-23-2023 Bamboo flowsheet Alex kinney PT Work Phone: [facility] Start: 03-23-2023 End: 03-23-2023 ambulatory Alex Rico PT Work Phone: [facility] Comment on above: Left thigh pain (Cassandra andrew Dx); Muscle strain of left thigh, subsequent encounter Start: 09-23-2020 End: 09-23-2020 Subsequent hospital visit by physician [facility] Echo Room [facility] Echocardiography Comment on above: Persistent atrial fi brillation (HCC); SOB (shortness of breath); Essential hypertension; Other specified diabetes mellitus with other specified complication, unspecified whether group home insulin use ([facility]); Class 2 obesity with body mass index (BMI) of 36.0 to 36.9 in adult, unspecified obesity type, unspecified whether serious comorbidity present; Pain in both lower extremities Start: 03-10-2020 End: 03-12-2020 Subsequent hospital visit by physician [facility] Vascular Imaging Room [facility] Laboratory Comment on above: Controlled type 2 di abetes mellitus with hyperglycemia, without long-term current use of insulin (HCC); Persistent atrial fibrillation (HCC); SOB (shortness of breath); Essential hypertension; Other specified diabetes mellitus with other specified complication, unspecified whether group home insulin use ([facility]); Class 2 obesity with body mass index (BMI) of 36.0 to 36.9 in adult, unspecified obesity type, unspecified whether serious comorbidity present; COVID-19; Fluid retention; Pain in both lower extremities Pain in both lower e xtremities; PVD (peripheral vascular disease) (HCC) Start: 02-12-2020 End: 02-12-2020 Subsequent hospital visit by physician Ej Foster Work Phone: [facility] ICU Comment on above: Arrived Start: 01-22-2020 End: 01-22-2020 Subsequent hospital visit by physician [facility] Echo Room [facility] Echocardiography Comment on above: Persistent atrial fi brillation (HCC); Essential hypertension; SOB (shortness of breath); Fluid retention; Other specified diabetes mellitus with other specified complication, unspecified whether supervisor long goods insulin use (HCC); Class 2 obesity with body mass index (BMI) of 36.0 to 36.9 in adult, unspecified obesity type, unspecified whether serious comorbidity present Start: 12-16-2019 End: 12-16-2019 Patient encounter procedure [facility] Facility: Start: 12-11-2019 End: 12-11-2019 [facility] Cov[facility] Covid Screening Comment on above: Arrived Procedures Date Procedure Procedure Detail Performing Clinician Start: 09-18-2024 Hemoglobin glycosylated a1c Kenia Cordonayush WELFARE ANALYST Work Phone: Start: 05-20-2024 Hemoglobin glycosylated a1c Kenia Cordonayush WELFARE ANALYST Work Phone: Start: 02-23-2024 End: 02-23-2024 Ecg routine ecg w/least 12 lds w/i&r Ej Foster MD Work Phone: Start: 02-23-2024 Ecg routine ecg w/le ast 12 lds w/i&r Ej Foster MD Work Phone: Start: 02-20-2024 Urine albumin quantitative Kenia Castillo WELFARE ANALYST Work Phone: Start: 02-20-2024 Lipid panel Kenia rush WELFARE ANALYST Work Phone: Start: 02-20-2024 Comprehensive metabo lic panel Kenia Castillo WELFARE ANALYST Work Phone: Start: 02-05-2024 Echo tthrc r-t [...] above: Performed By: #### B [id number] #### [facility] [address] [place] [address] Cheryl Srinivasan Performed By: #### C BC #### [facility] [address] [place] [address] Cheryl Srinivasan Plan of Treatment Date Care Activity Detail Author Start: 11-28-2028 DTaP/Tdap/Td vaccine (2 - Td or Tdap) DTaP/Tdap/Td vaccine (2 - Td or Tdap) [facility] Start: 11-28-2028 DTaP/Tdap/Td vaccine (2 - Td) DTaP/Tdap/Td vaccine (2 - Td) [facility] [place] Start: 02-19-2025 Medicare Annual Wellness (AWV) Medicare Annual Wellness (AWV) [facility] Start: 02-19-2025 Urine screening for protein Diabetes: Urine Protein Screening [facility] Start: 01-20-2025 End: 01-20-2025 Patient encounter procedure 01/20/2025 2:00 PM EST Office Visit [facility] Medicine [address] [place] [address] Kenia Castillo, KIERA [address] [place] [address] [facility] Start: 01-08-2025 End: 01-08-2025 Patient encounter procedure [facility] Start: 12-19-2024 Hemoglobin A1c measurement Diabetes: Hemoglobin A1C [facility] Start: 10-15-2024 End: 10-15-2024 ambulatory 10/15/2024 2:30 PM EDT Treatment [facility] [address] [facility] [address] [place] [address] Maddie Latham PTA [facility] Start: 10-14-2024 Influenza vaccination Influenza Vaccine (#1) [facility] Start: 10-10-2024 End: 10-10-2024 ambulatory 10/10/2024 2:30 PM EDT Treatment [facility] [address] [facility] [address] [place] [address] Valerie Argueta, PT [facility] Start: 10-07-2024 End: 10-07-2024 ambulatory [facility] Comment on above: Spinal stenosis, lumbar region with neur ogenic claudication (Primary Dx); Bilateral leg weakness; Left thigh pain Start: 2024 End: 2024 ambulatory [facility] Comment on above: Arrived Start: 09-30-2024 End: 09-30-2024 ambulatory 09/30/2024 2:30 PM EDT Treatment [facility] [address] [facility] [address] [place] [address] Maddie Latham PTA [facility] [facility] Start: 09-26-2024 End: 09-26-2024 ambulatory [facility] Comment on above: Arrived Start: 09-23-2024 End: 09-23-2024 ambulatory [facility] Comment on above: Arrived Start: 09-19-2024 End: 09-19-2024 ambulatory [facility] Comment on above: Arrived Start: 09-18-2024 End: 09-18-2024 Patient encounter procedure [facility] Comment on above: Arrived Start: 09-16-2024 End: 09-16-2024 ambulatory [facility] [facility] Comment on above: Arrived Start: 09-11-2024 End: 09-11-2024 ambulatory 09/11/2024 3:00 PM EDT Treatment [facility] [facility] [address] [place] [address] Kelbley, Maddie, SEMI DRIVER [facility] [place] [facility] Start: 09-09-2024 End: 09-09-2024 ambulatory 09/09/2024 2:30 PM EDT Treatment [facility] [facility] [address] [place] [address] Kelbley, Maddie, SEMI DRIVER Spinal stenosis, lumbar region with neurogenic claudication (Primary Dx); Bilateral leg weakness; Left thigh pain [facility] Comment on above: Spinal stenosis, lumbar region with neur ogenic claudication (Primary Dx); Bilateral leg weakness; Left thigh pain Start: 09-03-2024 End: 09-03-2024 Patient encounter procedure [facility] Comment on above: Arrived Start: 08-30-2024 End: 08-30-2024 ambulatory 08/30/2024 12:30 PM EDT Evaluation [facility] [address] [facility] [address] [place] [address] Valerie Argueta, PT [facility] Start: 08-19-2024 Hemoglobin A1c measurement Diabetes: Hemoglobin A1C [facility] Start: 07-22-2024 End: 07-22-2025 Comprehensive metabolic 2000 panel - Serum or Plasma Comprehensive metabolic panel Lab Routine Decreased renal function Expected: 07/22/2024 (Approximate), Expires: 07/22/2025 [facility] Work Phone: Comment on above: Expected: 07/22/2024 (Approximate), Expi res: 07/22/2025 Start: 07-09-2024 End: 07-09-2024 Professional / ancillary services management 07/09/2024 2:45 PM EDT Ancillary Procedure [facility] [address] [place] [address] Localized edema [facility] Comment on above: Localized edema Start: 07-09-2024 End: 07-09-2025 CBC W Auto Differential panel - Blood CBC and differential Lab Routine Localized edema Expected: 07/09/2024 (Approximate), Expires: 07/09/2025 [facility] Comment on above: Expected: 07/09/2024 (Approximate), Expi res: 07/09/2025 Start: 07-09-2024 End: 07-09-2025 Comprehensive metabolic 2000 panel - Serum or Plasma Comprehensive metabolic panel Lab Routine Localized edema Expected: 07/09/2024 (Approximate), Expires: 07/09/2025 [facility] Comment on above: Expected: 07/09/2024 (Approximate), Expi res: 07/09/2025 Start: 07-09-2024 End: 07-09-2025 Natriuretic peptide B [Mass/volume] in Blood B-type natriuretic peptide Lab Routine Localized edema Expected: 07/09/2024 (Approximate), Expires: 07/09/2025 [facility] Comment on above: Expected: 07/09/2024 (Approximate), Expi res: 07/09/2025 Start: 07-09-2024 End: 07-09-2024 Patient encounter procedure [facility] Comment on above: Arrived Start: 07-09-2024 End: 07-09-2025 TSH W/REFLEX TO FT4 TSH W/REFLEX TO FT4 Lab Routine Localized edema Expected: 07/09/2024 (Approximate), Expires: 07/09/2025 [facility] Comment on above: Expected: 07/09/2024 (Approximate), Expi res: 07/09/2025 Start: 07-09-2024 End: 07-09-2025 US.doppler Lower extremity vein - bilateral Vascular US lower extremity venous duplex bilateral Imaging STAT Localized edema Expected: 07/09/2024, Expires: 07/09/2025 [facility] Comment on above: Expected: 07/09/2024, Expires: Start: 07-09-2024 End: 07-09-2025 XR Chest 2 Views XR chest 2 views Imaging STAT Localized edema Expected: 07/09/2024, Expires: 07/09/2025 [facility] Work Phone: Comment on above: Expected: 07/09/2024, Expires: Start: 06-27-2024 Screening for malignant neoplasm of colon Colorectal Cancer Screening [facility] Comment on above: Postponed from 1948 (Patient Refus ed) Start: 06-08-2024 Urine screening for protein Diabetes: Urine Protein Screening [facility] Start: 05-20-2024 Hemoglobin A1c measurement Diabetes: Hemoglobin A1C [facility] Start: 05-20-2024 End: 05-20-2024 Patient encounter procedure [facility] Comment on above: Arrived Start: 04-15-2024 End: 04-15-2024 Patient encounter procedure 04/15/2024 2:30 PM EST Procedure Visit [facility] [address] [place] [phone] Arianna Lou DPM [address] [place] [address] [facility] Start: 03-21-2024 End: 03-21-2024 Patient encounter procedure 03/21/2024 2:00 PM EST Office Visit [facility] [address] [phone] Shalini Morrow PA-C [address] [place] [id number] 4 week [facility] Comment on above: 4 week Start: 03-19-2024 End: 03-19-2024 Patient encounter procedure 03/19/2024 1:00 PM EST Procedure Visit [facility] [address] [place] [phone] Arianna Lou DPM [address] [place], [place] [phone] [facility] Start: 03-04-2024 End: 03-04-2024 Patient encounter procedure 03/04/2024 1:00 PM EST Office Visit [facility] [address] [facility] [address] [place] [address] Trenton Redd PA [address] [facility] [address] [place] [address] [facility] Start: 02-22-2024 End: 02-22-2024 Patient encounter procedure 02/22/2024 3:00 PM EST Office Visit [facility] Part [address] [place] [address] Shalini Morrow PA-C [address] [place], [place] [phone] 2 week [facility] Comment on above: 2 week Start: 02-22-2024 Annual Wellness Visit (Medicare) Annual Wellness Visit (Medicare) [facility] Start: 02-20-2024 End: 02-20-2024 Patient encounter procedure 02/20/2024 2:00 PM EST Office Visit [facility] [address] [facility] [place] [address] Kenia Castillo NP [address] [place] [address] [facility] Start: 01-17-2024 End: 01-17-2024 Patient encounter procedure 01/17/2024 2:00 PM EST Office Visit [facility] [address] [place] [address] Kenia Castillo NP [address] [place] [address] [facility] Start: 12-20-2023 Hemoglobin A1c measurement Diabetes: Hemoglobin A1C [facility] Start: 12-03-2023 Medicare Annual Wellness (AWV) Medicare Annual Wellness (AWV) [facility] Start: 11-15-2023 End: 11-15-2023 Patient encounter procedure [facility] Comment on above: Arrived Start: 11-02-2023 Urine screening for protein Diabetes: Urine Protein Screening [facility] Start: 10-15-2023 Influenza vaccination Influenza Vaccine (#1) [facility] Start: 10-11-2023 End: 10-11-2023 Patient encounter procedure 10/11/2023 9:00 AM EDT Office Visit [facility] [address] [place] [phone] Kenia Castillo NP [address] [place] [address] [facility] Comment on above: Ar[facility] Start: 06-14-2023 End: 06-14-2023 Patient encounter procedure 06/14/2023 1:30 PM EDT Procedure Visit [facility] [address] [place] [phone] Arianna Lou, DP [address] [place] [address] [facility] Start: 06-09-2023 End: 06-09-2023 Patient encounter procedure 06/09/2023 1:00 PM EDT Office Visit [facility] [address] [place] [phone] Kenia Castillo NP [address] [place] [address] [facility] Start: 05-04-2023 GFR test (Diabetes, CKD 3-4, OR last GFR 15-59) GFR test (Diabetes, CKD 3-4, OR last GFR 15-59) [facility] Start: 04-17-2023 End: 04-17-2023 Patient encounter procedure 04/17/2023 1:30 PM EST Office Visit [facility] [address] [place] [phone] Trenton Redd, PA [address] [place] [address] [facility] Start: 04-13-2023 End: 04-13-2023 ambulatory 04/13/2023 1:00 PM EST Treatment [facility] [address] [place] [address] Alex Rico, PT [address] [place] [address] [facility] Start: 04-11-2023 End: 04-11-2023 ambulatory 04/11/2023 1:00 PM EST Treatment [facility] [address] [place] [address] Maddie Latham, SEMI DRIVER [facility] Start: 04-06-2023 End: 04-06-2023 ambulatory 04/06/2023 2:00 PM EST Treatment [facility] [address] [place] [address] Maddie Latham, SEMI DRIVER [facility] Start: 04-05-2023 End: 04-05-2023 ambulatory 04/05/2023 1:00 PM EST Treatment [facility] [address] [place] [address] Valerie Argueta, PT [facility] Start: 04-04-2023 End: 04-04-2023 ambulatory 04/04/2023 1:00 PM EST Treatment [facility] [address] [place] [address] Maddie Latham, SEMI DRIVER [facility] Start: 03-30-2023 End: 03-30-2023 ambulatory 03/30/2023 2:00 PM EST Treatment [facility] [address] [place] [address] Maddie Latham, SEMI DRIVER [facility] Start: 03-28-2023 End: 03-28-2023 ambulatory 03/28/2023 1:30 PM EST Treatment [facility] [address] [facility] [address] [place] [address] Noa Maddie, SEMI DRIVER [facility] Start: 03-23-2023 End: 03-23-2023 ambulatory 03/23/2023 1:00 PM EST Evaluation [facility] [address] [facility] [address] [place] [address] [place] Alex Juan, PT [address] [facility] [address] [place] [address] Left thigh pain; Muscle strain of left thigh, subsequent encounter [facility] Comment on above: Left thigh pain; Muscle strain of left thigh, subsequent encounter Start: 01-31-2023 Hemoglobin A1c measurement Diabetes: Hemoglobin A1C [facility] Start: 01-09-2023 Annual Wellness Visit (Medicare) Annual Wellness Visit (Medicare) [facility] Start: 12-02-2022 Glaucoma screening Diabetes: Retinopathy Screening [facility] Start: 09-30-2021 End: 09-30-2021 Patient encounter procedure 09/30/2021 Office Visit Cardiology Ej Foster MD [address] [place] [address] [place] [address] [facility] Part of [facility] Start: 03-10-2021 Creatinine measurement Creatinine monitoring [facility] [place] Start: 03-10-2021 HbA1c (Bld) [Mass fraction] A1C test (Diabetic or Prediabetic) [place] Start: 03-10-2021 Hemoglobin A1c measurement A1C test (Diabetic or Prediabetic) [facility] Start: 03-10-2021 Lipid panel [facility] Start: 03-10-2021 Potassium monitoring Potassium monitoring [place] Start: 01-21-2021 Creatinine measurement Creatinine monitoring [facility] [place] Start: 01-21-2021 HbA1c (Bld) [Mass fraction] A1C test (Diabetic or Prediabetic) [place] Start: 01-21-2021 Potassium monitoring Potassium monitoring [place] Start: 09-01-2021 Influenza vaccination Flu vaccine (#1) [facility] Work Phone: Start: 09-16-2020 End: 09-16-2020 Office Visit 09/16/2020 Office Visit Cardiology Ej Foster MD [address] [facility] [place] [address] [facility] Start: 03-10-2020 End: 03-10-2020 Office Visit 03/10/2020 Office Visit Cardiology Ej Foster MD [address] [facility] [place] [address] [facility] Start: 02-21-2020 End: 02-21-2020 Office Visit 02/21/2020 Office Visit Cardiology Ej Foster MD [address] [facility] [place] [address] [facility] Start: 01-30-2020 End: 01-30-2020 Office Visit 01/30/2020 Office Visit Cardiology Ej Foster MD [address] [facility] [place] [address] [facility] Start: 12-11-2019 Annual Wellness Visit (AWV) Annual Wellness Visit (AWV) [place] Start: 10-15-2019 Influenza vaccination Flu vaccine (#1) [place] Start: 2013 Pneumococcal 65+ years Vaccine (1 of 1 - PPSV23) Pneumococcal 65+ years Vaccine (1 of 1 - PPSV23) [place] Start: 2013 Pneumococcal 65+ years Vaccine (2 of 2 - PPSV23) Pneumococcal 65+ years Vaccine (2 of 2 - PPSV23) [place] Start: 07-17-2012 Shingles Vaccine (2 of 3) Shingles Vaccine (2 of 3) [facility] Start: 1998 Screening for malignant neoplasm of colon Colon cancer screen colonoscopy [place], [place] Start: 1998 Shingles Vaccine (1 of 2) Shingles Vaccine (1 of 2) [place] Start: 1993 Screening for malignant neoplasm of colon [facility] Start: 1988 Lipid panel Lipid screen [place] Start: 10-04-1967 DTaP/Tdap/Td vaccine (1 - Tdap) DTaP/Tdap/Td vaccine (1 - Tdap) [place] Start: 1966 Diabetic microalbuminuria test Diabetic microalbuminuria test [place] Start: 1966 Glaucoma screening Diabetic retinal exam [facility] Start: 1966 Hepatitis C screening Hepatitis C screen [facility] Start: 1966 Urine screening for protein Diabetic Alb to Cr ratio (uACR) test [facility] Start: 1960 Depression Screen Depression Screen [facility] Start: 1958 Diabetic foot examination Diabetic foot exam [facility] Start: 1958 Diabetic retinal exam Diabetic retinal exam [place], [place] Start: 1958 Lipid panel Lipid screen [place] Start: 1948 Creatinine measurement Creatinine monitoring [place], [place] Start: 1948 Hepatitis C screening Hepatitis C screen [place], [place] Start: 1948 Potassium monitoring Potassium monitoring [place], [place] Start: 1948 Screening for malignant neoplasm of colon [facility] End: 02-23-2024 Cardioversion external [facility] Comment on above: 1 Occurrences starting 02/23/2024 until 02/23/2024 End: 02-12-2020 Catheterization and angiography procedure details panel Diagnostic Cardiac Senior Office Assistant Procedure Cardiac Cath Routine One Time for 1 Occurrences starting 02/12/2020 until 02/12/2020 [place] Comment on above: One Time for 1 Occurrences starting 01/15 until 02/12/2020 Continuous pulse oximetry Pulse oximetry, continuous Respiratory Care Routine Every 4hr until discontinued starting 02/12/2020 [place] Comment on above: Every 4hr until discontinued starting End: 12-11-2019 Covid-19 Ambulatory Covid-19 Ambulatory Lab Routine Once for 1 Occurrences starting 12/11/2019 until 12/11/2019 [facility] [place] Comment on above: Once for 1 Occurrences starting 12/11/19 20 until 12/11/2019 Covid-19 Ambulatory Covid-19 Amb ulatory Lab Routine 12/11/2019 2:27 PM EDT [place] EKG 12 Lead EKG 12 Lead ECG Routine 02/12/2020 8:26 AM EST [place] End: 02-12-2020 End Tidal CO2 Continuous End Tidal CO2 Continuous Respiratory Care Routine Continuous until discontinued starting 02/12/2020 [place] Comment on above: Continuous until discontinued starting 1 End: 02-23-2024 Extended cardiac holter monitor (3 day-14 day) [facility] Comment on above: One Time for 1 Occurrences starting 02/13 until 02/23/2024 End: 02-05-2024 Extended cardiac holter monitor (3 days-14 day) [facility] Comment on above: 1 Occurrences starting 02/05/2024 until 02/05/2024 End: 02-26-2024 Extended cardiac holter monitor (3 days-14 day) [facility] Comment on above: 1 Occurrences starting 02/26/2024 until 02/26/2024 End: 03-10-2020 HbA1c (Bld) [Mass fraction] Hemoglobin A1C Lab Routine Controlled type 2 diabetes mellitus with hyperglycemia, without long-term current use of insulin ([facility]) 1 Occurrences starting 03/10/2020 until 03/10/2020 [place] Comment on above: 1 Occurrences starting 03/10/2020 until 03/10/2020 HbA1c (Bld) [Mass fraction] Hemoglobin A1C Lab Routine Controlled type 2 diabetes mellitus with hyperglycemia, without long-term current use of insulin ([facility]) 03/10/2020 12:35 PM [place] End: 02-23-2024 INITIATE PACU OXYGEN THERAPY PROTOCOL Initiate PACU Oxygen Therapy Protocol Respiratory Care Routine Continuous until discontinued starting 02/23/2024 [facility] Comment on above: Continuous until discontinued starting 0 02/23/2024 Oxygen therapy [[facility] Data Set] Initiate Oxygen Therapy Protocol Respiratory Care Routine Daily until discontinued starting 02/12/2020 [place] Comment on above: Daily until discontinued starting 2019 End: 03-10-2020 VL LOWER EXTREMITY ARTERIAL SEGMENTAL PRESSURES W PPG VL LOWER EXTREMITY ARTERIAL SEGMENTAL PRESSURES W [facility] Imaging STAT Pain in both lower extremities PVD (peripheral vascular disease) ([facility]) 1 Occurrences starting 03/10/2020 until 03/10/2020 [place] Comment on above: 1 Occurrences starting 03/10/2020 until 03/10/2020 VL LOWER EXTREMITY ARTERIAL SEGMENTAL PRESSURES W [facility] VL LOWER EXTREMITY ARTERIAL SEGMENTAL PRESSURES W [facility] Imaging STAT Pain in both lower extremities PVD (peripheral vascular disease) ([facility]) 03/10/2020 1:24 PM EST [place] Immunizations Immunization Date Immunization Notes Care Provider [facility] 11-21-2023 influenza, high dose seasonal, preservative-free Kenia Castillo WELFARE ANALYST Work Phone: [facility] 11-21-2023 Pneumococcal Conjuga te PCV 20 Kenia Castillo WELFARE ANALYST Work Phone: [facility] 11-21-2023 SARS-COV-2 (COVID-19 ) vaccine, mRNA, spike protein, LNP, PF, 50 mcg/0.5 mL Kenia Castillo WELFARE ANALYST Work Phone: [facility] 11-21-2023 influenza virus vacc ine, unspecified formulation Valerie Argueta PT [facility] 12-05-2022 RSV, recombinant, pr otein subunit RSVpreF, adjuvant reconstitu, 120mcg/0.5mL, PF (Arexvy) Kenia Castillo WELFARE ANALYST Work Phone: [facility] 12-02-2022 pneumococcal polysaccharide vaccine, 23 valent Alex Rico PT Work Phone: [facility] 11-01-2022 influenza, high dose seasonal, preservative-free Alex Rico PT Work Phone: [facility] 11-01-2022 influenza virus vacc ine, unspecified formulation Kenia Castillo WELFARE ANALYST Work Phone: [facility] 11-01-2021 Influenza, Seasonal, Quadrivalent, Adjuvanted Alex Rico PT Work Phone: [facility] 11-01-2021 SARS-COV-2 (COVID-19 ) vaccine, mRNA, spike protein, LNP, bivalent, preservative free, 30 mcg/0.3 mL dose, mauro-sucrose formulation Alex Rico PT Work Phone: [facility] 11-01-2021 SARS-CoV-2, Unspecified Jamie Rico PT Work Phone: [facility] 10-30-2021 Influenza, High-dose Seasonal, Quadrivalent, Preservative Free Alex Rico PT Work Phone: [facility] 11-12-2020 Influenza, High-dose Seasonal, Quadrivalent, Preservative Free Alex Rico PT Work Phone: [facility] 11-11-2020 Influenza, High-dose Seasonal, Quadrivalent, Preservative Free Alex Rico PT Work Phone: [facility] 11-11-2020 Pfizer Purple Cap SARS-CoV-2 Vaccination Alex Rico PT Work Phone: [facility] 04-12-2020 Pfizer Purple Cap SARS-CoV-2 Vaccination Alex Rico PT Work Phone: [facility] 03-19-2020 Pfizer Purple Cap SARS-CoV-2 Vaccination Alex Rico PT Work Phone: [facility] 11-28-2019 influenza, injectabl e, quadrivalent, preservative free Alex Rico PT Work Phone: [facility] 11-28-2018 influenza, injectabl e, quadrivalent, preservative free Alex Rico PT Work Phone: [facility] 11-28-2018 tetanus toxoid, redu hiral diphtheria toxoid, and acellular pertussis vaccine, adsorbed Alex Rico PT Work Phone: [facility] 11-27-2018 influenza, high dose seasonal, preservative-free Alex Rico PT Work Phone: [facility] 11-27-2017 influenza, high dose seasonal, preservative-free Alex Rico PT Work Phone: [facility] 11-27-2017 Influenza, High-dose Seasonal, Quadrivalent, Preservative Free Alex Rico PT Work Phone: [facility] 11-22-2016 influenza, injectabl e, quadrivalent, contains preservative Alex Rico PT Work Phone: [facility] 11-22-2016 influenza, injectabl e, quadrivalent, preservative free Alex Rico PT Work Phone: [facility] 07-29-2015 pneumococcal conjuga te vaccine, 13 valent Alex Rico PT Work Phone: [facility] 01-21-2015 influenza, seasonal, injectable, preservative free Alex Rico PT Work Phone: [facility] 12-11-2013 influenza, injectabl e, quadrivalent, preservative free Alex Rico PT Work Phone: [facility] 03-13-2013 influenza, seasonal, injectable Alex Rico PT Work Phone: [facility] 03-13-2013 influenza, seasonal, injectable, preservative free Alex Rico PT Work Phone: [facility] 03-13-2013 pneumococcal polysaccharide vaccine, 23 valent Alex Rico PT Work Phone: [facility] 05-22-2012 zoster vaccine, live Alex Rico PT Work Phone: [facility] 02-02-2012 influenza, seasonal, injectable Alex Rico PT Work Phone: [facility] Payers Date Payer Category Payer Self-pay 2023 Medicare [id number] 2023 Medicare (Managed Care) [facility] MEDICARE [id number] 2023 Private Health Insurance [employer] [id number] 2023 Medicare [id number] 2023 Unknown [id number] 1.13.693.2. [id number] 1959 Medicare [id number]. [id number] 1959 Unknown [id number] 1948 Unknown [id number] 2.16.840.1.299636.3.579.2. 593 1948 Unknown [id number] 2.16.840.1.191900.3.579.2. 1286 1948 Unknown [id number] 2.16.840.1.365527.3.579.2. 1286 1948 Unknown [id number] 2.16.840.1.962908.3.579.2. 1286 1948 Unknown [id number] 2.16.840.1.263077.3.579.2. 173 1948 Unknown [id number] 2.16.840.1.920343.3.579.2. 173 1948 Unknown [id number] 2.16.840.1.015228.3.579.2. 173 1948 Unknown [id number] 2.16.840.1.764881.3.579.2. 173 1948 Unknown [id number] 2.16840.1.438720.3.579.2. 196 1948 Unknown [id number] 2.16840.1.116601.3.579.2. 196 1948 Unknown [id number] 2.16840.1.867317.3.579.2. 196 1948 Unknown [id number] 2.16840.1.277019.3.579.2. 196 1948 Unknown [id number] 2.16840.1.397785.3.579.2. 196 1948 Unknown [id number] 2.16.840.1.985511.3.579.2. 196 1948 Unknown [id number] 2.16.840.1.870243.3.579.2. 1259 1948 Unknown [id number] 2.16.840.1.368560.3.579.2. 1259 1948 Unknown [id number] 2.16.840.1.934455.3.579.2. 1259 9 Unknown [id number] 2.840.1.329614.3.579.2. 125 1948 Unknown [id number] 2.840.1.094546.3.579.2. 125 1948 Unknown [id number] 2.840.1.427842.3.579.2. 125 1948 Unknown [id number] 2.840.1.945647.3.579.2. 125 1948 Unknown [id number] 2.840.1.881115.3.579.2. 1258 1948 Unknown [id number] 2.840.1.559384.3.579.2. 1258 1948 Unknown [id number] 2.0.1.735271.3.579.2. 1258 1948 Unknown [id number] 2.840.1.465711.3.579.2. 125 1948 Unknown [id number] 2.840.1.152228.3.579.2. 1258 1948 Unknown [id number] 2.0.1.881628.3.579.2. 125 1948 Unknown [id number] 2.0.1.967124.3.579.2. 125 1948 Unknown [id number] 2.840.1.219364.3.579.2. 125 1948 Unknown [id number] 2.840.1.259967.3.579.2. 1258 1948 Unknown [id number] 2.840.1.888267.3.579.2. 125 1948 Unknown [id number] 2.840.1.339625.3.579.2. 1258 1948 Unknown [id number] 2.840.1.153211.3.579.2. 1259 Unknown [id number] 2.16.840.1.150984.3.579.2. 531 Social History Date Type Detail Facility Tobacco smoking stat us [facility] Unknown if ever smoked [place], [place] Start: 1950 Sex Assigned At Not on file [place] Start: 01-22-2020 End: 08-02-2022 Tobacco smoking status NHIS Never smoker [place] Start: 01-22-2020 End: 08-02-2022 Tobacco use and exposure Never used [place] Start: 03-10-2020 End: 09-18-2024 Alcohol intake Current drinker of alcohol (finding) [place] Start: 02-12-2020 Alcohol Comment having had sin ce December [place], [place] Exposure to SARS-CoV -2 (event) Not sure [place] Start: 09-16-2020 End: 12-02-2022 Alcohol intake [facility] Work Phone: Start: 12-02-2022 End: 03-14-2023 Tobacco use panel [facility] Start: 10-25-2022 Alcohol Comment drinks alcohol 2-3 times a week [facility] Start: 1950 Sex Assigned At Male F [facility] How often to you hav e [...] 02-23-2024 Alcohol Comment occasional [place] [facility] Clinical Notes 09-23-2020 to 09-18-2024 Kenia Castillo, KIERA - 09/18/2024 1:00 PM Jeff Latham PTA - 09/09/2024 2:30 PM Magdiel Lou DPM - 09/03/2024 1:00 PM EDTSveena Kendall, PT - 08/30/2024 12:30 PM EDT Note Date & Type Note Facility 09-18-2024 History of Present illness Narrative Images from the original note were not included. Zaina Winters is a 73 y.o. male presents with chief complaint of Diabetes HPI: HPI History of Present Illness The patient presents for evaluation of back pain, urinary frequency, and diabetes management. He reports experiencing constant back pain that disrupts his sleep. Despite receiving injections, he found no relief and has returned to physical therapy for 13 sessions. Methocarbamol 500 mg was prescribed, initially causing significant pain the following day. After adjusting the dosage to one tablet in the morning and one at night, he found it beneficial. He continues to perform exercises and stretches while standing to alleviate pain. He reports frequent urination, even when sitting, and feels that his current medication, Flomax, is not sufficiently strong. Initially, Flomax was effective, but its efficacy seems to have diminished over time. He is considering increasing the dosage to two tablets. His diabetes is well-managed, and he reports feeling good overall. He has lost 60 pounds since the onset of his condition. He was not approved for tirzepatide injections, so he has been losing weight through dietary changes and increased physical activity. 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 Social History: Sleep: Reports disrupted sleep due to back pain SUBJECTIVE: MEDICATIONS: Current Outpatient Medications Medication Instructions [...] tablet 1 tablet, Oral, Every morning metFORMIN (GLUCOPHAGE) 500 mg, Oral, 2 times daily with meals methocarbamol (ROBAXIN) 500 mg, Every 8 hours PRN metoprolol tartrate (LOPRESSOR) 50 mg, Oral, 2 times daily omeprazole (PRILOSEC) 20 mg, Oral, Daily before breakfast, Do not crush or chew. rOPINIRole (REQUIP) 1.5 mg, Oral, Nightly tamsulosin (FLOMAX) 0.4 mg, Oral, Nightly VITAMIN D, CHOLECALCIFEROL, PO Zepbound 2.5 mg, Subcutaneous, Weekly I have reviewed and reconciled the history and medication list with the patient today. REVIEW OF SYMPTOMS: Review of Systems OBJECTIVE: Visit Vitals BP 130/78 Pulse 78 Resp 18 Ht 5' 11.5 Wt 306 lb SpO2 98% BMI 42.08 kg/m Smoking Status Never BSA 2.65 m Physical Exam Vitals reviewed. Constitutional: Appearance: [...] motion and neck supple. Right lower leg: No edema. Left lower leg: No edema. Skin: General: Skin is warm and dry. Capillary Refill: Capillary refill takes less than 2 seconds. Findings: No rash. Neurological: General: No focal deficit present. Mental Status: He is alert and oriented to person, place, and time. ASSESSMENT AND PLAN: Assessment/Plan Diagnoses and all orders for this visit: Primary hypertension -Discussed current management plan. Goal BP less [...] of meds. Type 2 diabetes mellitus with diabetic peripheral angiopathy without gangrene, without long-term current use of insulin (HCC) - POCT Glycated hemoglobin, total Diabetic protocols reviewed. Discussed and updated current management plan. Addressed barriers to care, diet, exercise plan and blood sugar testing. Education provided for medications. Goal A1C <7 and BP <130/80 for suboptimally controlled diabetes. I have encouraged patient to check feet regularly and to see ophthomololgist annually. I have discussed the need for regular testing and follow up. We will recheck an A1C every 4 months and microalbumin yearly. Discussed complications which could include blindness, heart disease and kidney disease. Benign prostatic hyperplasia with lower urinary tract symptoms, symptom details unspecified - finasteride (Proscar) 5 MG tablet; Take 1 tablet (5 mg) by mouth Daily Do not crush, chew, or split. -Add proscar to regimen. Paroxysmal atrial fibrillation (HCC) -on eliquis, amiodarone, and metoprolol. Followed by cardiology Morbid (severe) obesity due to excess calories ([facility]) -Down 10 lbs since last visit. Keep up the great work! Did discuss seeing if we could get insurance to cover a different GLP1, he declines at this time would like to continue with lifestyle modifications. documented in this encounter [facility] 09-09-2024 History of Present illness Narrative Images from the original note were not included. Physical Therapy Treatment Visit Patient Name: Quentin Winters Today's Date: 09/09/2024 Encounter Diagnoses Name Primary? Spinal stenosis, lumbar region with neurogenic claudication Yes Bilateral leg weakness Visit number: 2 Timed Code Treatment: 41 minutes Total Treatment Time: 47 minutes Time In: 2:30 PM Time Out: 3:17 PM History: Pt has been dealing with low back pain for quite some time. Was not getting any relief with therapy and was sent to Pain Management. States he had multiple injections without relief. States since then, he feels like his strength is getting worse. Fell the other day in the bathroom during the night when going to the bathroom. States he is dealing with polio effecting his right side. Has fallen about 14 times in the last year and a half. Feels like his strength is gone and he is dragging right foot. Balance has been effected due to decrease strength. Losing his confidence in his ability to keep himself from falling. Precautions: Polio, bilateral TKA Subjective: bilateral hips / groin 10/23 I do the exercises and then I'm miserable for the next day Pain: 8-9/10 Objective: PT Evaluation (08/30/2024) LUMBAR SPINE AROM: extension limited due to increase low back pain Observation: pt ambulates without device with limited strep length right LE Strength: right hip 3-/5, left hip 4-/5; right quad 4/5, left quad 4-/5; right DF 3-/5, left DF 4/5 Balance: Functional Reach: 4 inches Special Test: bilateral slump testing negative Functional: TUG without device: 30.00 seconds Neurological: Reflexes: not tested Myotomes: intact Dermatomes: intact Special Test: negative clonus Treatment: Manual Therapy: Passive ROM, Joint mobilization, Soft Tissue Mobilization, Myofascial Release, Muscle Energy Technique, Neural Mobilization, Myofascial Cupping, Dry Needling, IASTM, and Scar mobilization as needed. Therapeutic Exercise: (41 minutes supervised) Guided pt through ther and flex ex per grid to improve LE, core, lumbar Strength, Endurance, Flexibility, ROM, HEP, Neural Mobilization, Power, and Core Stability , reviewed HEP, Nustep (6 minutes ) unsupervised hills lev 2 at the end of session to improve B LE strength and endurance Therapeutic Activity: Exercises to improve dynamic activities, functional tasks, functional mobility to return to prior activity level as needed. Neuromuscular re-education: Balance Training, Muscle Facilitation, Dynamic Stability, Core Stabilization, and Blood Flow Restriction Training (BFRT) as needed. Modalities: Heat, Ice, Electrical Stimulation, Ultrasound, Cervical Mechanical Traction, Lumbar Mechanical Traction, Iontophoresis, and Fluidotherapy as needed. Assessment: Visit #2 pt with spinal stenosis, significant weakness bilateral LE's and history of falls. Reports no change in LB pain or LE strength, no recent falls. Pt states increased LE pain up to 9/10 when performing HEP discussed decreasing the number of reps to 10-15x. Fair tolerance to ther ex this date with a few rest breaks. Complains of Right LE weakness > than L. Verbal cue for up right posture with standing ther ex. Pt will benefit from further PT. Outcome Measure: Lower Extremity Functional Scale (LEFS): 43/80 Rehab Diagnosis: bilateral LE weakness, low back pain, decrease strength and stability Short Term Goal: To be met in 2 weeks Goal 1: Pt to be instructed in home exercise program. Detention Goals: To be met in 10 weeks Goal 1: Pt to report independence and compliance with home program. Goal 2: Pt to achieve 4/5 strength bilateral hips to assist functional mobility. Goal 3: Pt to achieve 7 inches with functional reach testing indicating improved balance and stability. Goal 4: Pt to complete TUG without device in less than 20.0 seconds indicating improved gait and mobility. Goal 5: Pt to score no less than 54/80 on LEFS indicating improved QOL. Pt will benefit from skilled PT for 2x/week from 08/30/2024 to 11/22/2024 to address the above impairments. I hereby deem this POC medically necessary. Please sign below. Date: documented in this encounter [facility] 09-03-2024 History of Present illness Narrative Images from the original note were not included. Subjective Patient ID: Quentin Winters is a 73 y.o. male who presents for DM Foot Care (Established patient presents today for routine diabetic nail care. PCP: Kenia Castillo LV 07/09/24, A1C: 6.3 (05/2024), BS: 99). HPI HPI Onychomycosis/Toenail Fungus: presents today requesting [...] Outpatient Medications: allopurinol (Zyloprim) 100 MG tablet, Take 1 tablet (100 mg) by mouth in the morning., Disp: 90 tablet, Rfl: 1 amitriptyline (Elavil) 10 MG tablet, Take 1 tablet (10 mg) by mouth at bedtime, Disp: 90 tablet, Rfl: 0 apixaban (Eliquis) 5 MG tablet, Take 1 tablet (5 mg) by mouth in the morning and 1 tablet (5 mg) before bedtime., Disp: 180 tablet, Rfl: 1 atorvastatin (Lipitor) 10 MG tablet, Take 1 tablet (10 mg) by mouth in the morning., Disp: 90 tablet, Rfl: 3 Bioflavonoid Products (VITAMIN C PLUS PO), Take by mouth, Disp: , Rfl: gabapentin (Neurontin) 300 MG capsule, Take 300 mg by mouth in the morning and 300 mg before bedtime., Disp: , Rfl: losartan-hydroCHLOROthiazide (Hyzaar) 50-12.5 MG tablet, Take 1 tablet by mouth in the morning., Disp: 90 tablet, Rfl: 1 metFORMIN (Glucophage) 500 MG tablet, Take 1 tablet (500 mg) by mouth in the morning and 1 tablet (500 mg) in the evening. Take with meals., Disp: 180 tablet, Rfl: 1 metoprolol tartrate (Lopressor) 50 MG tablet, Take 1 tablet (50 mg) by mouth in the morning and 1 tablet (50 mg) before bedtime., Disp: 180 tablet, Rfl: 1 omeprazole (PriLOSEC) [address] capsule, Take 1 capsule (20 mg) by mouth in the morning. Take before meals. Do not crush or chew., Disp: 90 capsule, Rfl: 1 rOPINIRole (Requip) 1 MG tablet, Take 1.5 tablets (1.5 mg) by mouth at bedtime, Disp: 135 tablet, Rfl: 1 tamsulosin (Flomax) 0.4 MG 24 hr capsule, Take 1 capsule (0.4 mg) by mouth at bedtime, Disp: 90 capsule, Rfl: 1 Tirzepatide-Weight Management (Zepbound) 2.5 MG/0.5ML solution auto-injector, Inject 2.5 mg under the skin 1 (one) time per week, Disp: 2 mL, Rfl: 1 VITAMIN D, CHOLECALCIFEROL, PO, , Disp: , Rfl: amiodarone (Pacerone) 200 MG tablet, Oral for 30 Days (Patient not taking: Reported on 09/03/2024), Disp: , Rfl: Allergies Patient has no known allergies. Past Surgical History Past Surgical History: Procedure Laterality Date CARDIOVERSION IR INJECTION 04/2024 in back LUMBAR DISC SURGERY MULTIPLE TOOTH EXTRACTIONS 02/2024 TOTAL KNEE ARTHROPLASTY Bilateral 2021 Family History [...] the rim of each heel. NAIL PATHOLOGY: Bilateral great toes: TDO deformity: Toenail dystrophy, elongation, [...] mildly contracted. MUSCLE STRENGTH: no focal deficits. Left great toe: Mild ecchymosis along the proximal paronychial fold; without swelling, warmth or soft tissue fluctuance. Unremarkable for subungual hematoma. Radiology: Assessment/Plan 1. Symptomatic onychodystrophy/mycosis multiple digits. 2. Lumbar radiculopathy; chronic, stable. 3. Left knee endoprosthesis (February 2021). 4. Right leg length discrepancy. 5. Right knee endoprosthesis (July 2021). 6. Polio by history. 7. Uncomplicated contusion left great toe (sustained 04/28/2024). Plan: Notes: conservative and palliative care measures preferred, understood and again indicated; expressing no interest in oral therapy. Topical therapy is difficult for him, due to mobility and flexibility limitations. Encourage AmLactin therapy. Hygiene measures discussed; recommending cornstarch powder for the webspace areas. Patient education and assessment relative to the insensate foot condition. Sizing and fitting of Powerstep orthoses. Procedure: Toenail Debridement: Aseptic technique: power/manual instrumentation: [...] Lou DPM documented in this encounter [facility] 08-30-2024 History of Present illness Narrative Images from the original note were not included. Physical Therapy Evaluation Visit Patient Name: Quentin Winters Today's Date: 08/30/2024 Encounter Diagnoses Name Primary? Spinal stenosis, lumbar region with neurogenic claudication Yes Bilateral leg weakness Visit number: 1 Timed Code Treatment Minutes: 45 minutes Total Treatment Time: 45 minutes Time In: 1230 Time Out: 1319 History: Pt has been dealing with low back pain for quite some time. Was not getting any relief with therapy and was sent to Pain Management. States he had multiple injections without relief. States since then, he feels like his strength is getting worse. Fell the other day in the bathroom during the night when going to the bathroom. States he is dealing with polio effecting his right side. Has fallen about 14 times in the last year and a half. Feels like his strength is gone and he is dragging right foot. Balance has been effected due to decrease strength. Losing his confidence in his ability to keep himself from falling. Precautions: Polio, bilateral TKA Subjective: bilateral hips / groin Pain: 5/10 Objective: PT Evaluation (08/30/2024) LUMBAR SPINE AROM: extension limited due to increase low back pain Observation: pt ambulates without device with limited strep length right LE Strength: right hip 3-/5, left hip 4-/5; right quad 4/5, left quad 4-/5; right DF 3-/5, left DF 4/5 Balance: Functional Reach: 4 inches Special Test: bilateral slump testing negative Functional: TUG without device: 30.00 seconds Neurological: Reflexes: not tested Myotomes: intact Dermatomes: intact Special Test: negative clonus Treatment: Education: HEP education with demonstration, Educated on Eval Findings and POC Manual Therapy: Passive ROM, Joint mobilization, Soft Tissue Mobilization, Myofascial Release, Muscle Energy Technique, Neural Mobilization, Myofascial Cupping, Dry Needling, IASTM, and Scar mobilization as needed. Therapeutic Exercise: (24 minutes) Strength, Endurance, Flexibility, ROM, HEP, Neural Mobilization, Power, and Core Stability as needed. Pt performed and instructed in home program this date; written instructions and pictures issued with good pt understanding. Therapeutic Activity: Exercises to improve dynamic activities, functional tasks, functional mobility to return to prior activity level as needed. Neuromuscular re-education: Balance Training, Muscle Facilitation, Dynamic Stability, Core Stabilization, and Blood Flow Restriction Training (BFRT) as needed. Modalities: Heat, Ice, Electrical Stimulation, Ultrasound, Cervical Mechanical Traction, Lumbar Mechanical Traction, Iontophoresis, and Fluidotherapy as needed. Assessment: Pt is 73 y/o male with significant weakness bilateral LE's and history of falls. Pt ambulates with decrease stride right LE. Limited functional reach due to decrease balance and stability. Current TUG is 30.0 seconds indicating high risk for falls. Pt will benefit from further PT. Outcome Measure: Lower Extremity Functional Scale (LEFS): 43/80 Rehab Diagnosis: bilateral LE weakness, low back pain, decrease strength and stability Short Term Goal: To be met in 2 weeks Goal 1: Pt to be instructed in home exercise program. Detention Goals: To be met in 10 weeks Goal 1: Pt to report independence and compliance with home program. Goal 2: Pt to achieve 4/5 strength bilateral hips to assist functional mobility. Goal 3: Pt to achieve 7 inches with functional reach testing indicating improved balance and stability. Goal 4: Pt to complete TUG without device in less than 20.0 seconds indicating improved gait and mobility. Goal 5: Pt to score no less than 54/80 on LEFS indicating improved QOL. Pt will benefit from skilled PT for 2x/week from 08/30/2024 to 11/22/2024 to address the above impairments. I hereby deem this POC medically necessary. Please sign below. Date: documented in this encounter [facility] 08-15-2024 Telephone encounter Note He contacted and noted he is going on vacation and will contact once he returns to schedule PT. [facility] 08-15-2024 Miscellaneous Notes He contacted and noted he is going on vacation and will contact once he returns to schedule PT. LM requesting a call back to schedule PT Eval. documented in this encounter [facility] 08-15-2024 Telephone encounter Note LM requesting a call back to schedule PT Eval. [facility] 07-24-2024 Telephone encounter Note Patient called back and message was given. He understood and had no further questions. [facility] 07-24-2024 Miscellaneous Notes Patient called back and message was given. He understood and had no further questions. L/m letting pt know of message. ----- Message from Kenia Castillo sent at 07/23/2024 6:13 PM EDT ----- Renal function back to baseline, he needs to avoid NSAIDS ----- Message ----- From: [facility], [facility] Results In Sent: 07/23/2024 6:24 AM EDT To: Kenia Castillo NP documented in this encounter [facility] 07-23-2024 Telephone encounter Note L/m letting pt know of message. [facility] 07-23-2024 Telephone encounter Note ----- Message from Kenia Castillo sent at 07/23/2024 6:13 PM EDT ----- Renal function back to baseline, he needs to avoid NSAIDS ----- Message ----- From: [facility] [employer] [facility] Results In Sent: 07/23/2024 6:24 AM EDT To: Kenia Castillo NP [facility] 07-23-2024 Telephone encounter Note Received as voicemail: José, my name is Quentin or Ching. My birthday is a [birth year]I am calling about the blood test that I had taken yesterday. Why did you probably find out about the results or what the dr. say about them? My phone number is [phone] would like to have a call back, please, thank you. [facility] 07-23-2024 Miscellaneous Notes Received as voicemail: José, my name is Quentin or Ching. My birthday is a [birth year]I am calling about the blood test that I had taken yesterday. Why did you probably find out about the results or what the dr. say about them? My phone number is [phone] would like to have a call back, please, thank you. documented in this encounter [facility] 07-09-2024 Telephone encounter Note Zepbound sent to pharmacy, most likely needs PA, please start, will need 4 week follow up if approved [facility] 07-09-2024 Miscellaneous Notes Zepbound sent to pharmacy, most likely needs PA, please start, will need 4 week follow up if approved documented in this encounter [facility] 07-09-2024 History of Present illness Narrative Images from [...] used compression stockings but has utilized an Danna wrap for his restless legs syndrome. He has not undergone any recent surgeries, long trips, or flights. He has a history of frequent falls, with approximately 10 to 12 incidents occurring within the past 1.5 years, often due to tripping over his right foot. He reports no history of heart failure or irregular heartbeats. He has been managing his restless legs syndrome with yaak-dtb-ypddysd medication, taking up to nine tablets at a time, but questions their efficacy. He has not scheduled an appointment with sleep medicine. He attempted to use a mask for his sleep apnea but found it difficult due to his inability to remain still because of his restless legs syndrome. [...] lb 6.4 oz SpO2 96% BMI 43.51 kg/m Smoking Status Never BSA 2.7 m Physical Exam Vitals reviewed. Constitutional: Appearance: [...] stockings to BLE, elevate intermittently, can use danna wraps if he doesn't have compression stockings at home. Consider EKG if labs and imaging negative. Restless legs syndrome - rOPINIRole (Requip) 1 MG tablet; Take 1.5 tablets (1.5 mg) by mouth at bedtime -continue requip. Discussed correlation of RLS with untreated sleep apnea. POOL (obstructive sleep apnea) - Tirzepatide-Weight Management (Zepbound) 2.5 MG/0.5ML solution auto-injector; Inject 2.5 mg under the skin 1 (one) time per week -could [...] and 1 tablet (50 mg) before bedtime. - losartan-hydroCHLOROthiazide (Hyzaar) [...] and 1 tablet (50 mg) before bedtime. - apixaban (Eliquis) [...] in the morning. documented in this encounter [facility] 06-28-2024 Telephone encounter Note Gave number he will call and schedule [facility] 06-28-2024 Miscellaneous Notes Gave number he will call and schedule Open referral for sleep medicine, did he schedule with Dr. Plascencia in [place]? documented in this encounter [facility] 06-28-2024 Telephone encounter Note Open referral for sleep medicine, did he schedule with Dr. Plascencia in [place]? [facility] 05-23-2024 Miscellaneous Notes Pt is requesting a cough medicine but does not want the little egg looking. He is not better from his visit, the cough is keeping him up and he needs something to get rid of it[facility] [place] documented in this encounter [facility] 05-23-2024 Telephone encounter Note Pt is requesting a cough medicine but does not want the little egg looking. He is not better from his visit, the cough is keeping him up and he needs something to get rid of it. [facility] [place] [facility] 05-20-2024 History of Present illness Narrative Images from the original note were not included. Zaina Winters is a 73 y.o. male presents with chief complaint of Diabetes and URI HPI: HPI History of Present Illness The patient presents for evaluation of a scratchy throat, cough, watery eyes, and ear pain. He reports the onset of symptoms on , which initially subsided on Monday but recurred on Monday and persisted into Monday. He has been experiencing ocular discharge since yesterday morning, which was particularly severe at the onset. He has not previously taken any allergy medications. He has been eating cookies lately. 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 SUBJECTIVE: MEDICATIONS: Current Outpatient Medications Medication Instructions [...] D REVIEW OF SYMPTOMS: Review of Systems OBJECTIVE: Visit Vitals BP 126/64 Pulse 68 Temp 98.9 F (Tympanic) Ht 5' 11.5 Wt 310 lb 6.4 oz SpO2 94% BMI 42.69 kg/m Smoking Status Never BSA 2.67 m Physical Exam Vitals reviewed. Constitutional: Appearance: He is obese. HENT: Head: Normocephalic and atraumatic. Right Ear: Tympanic membrane normal. Left Ear: Tympanic membrane is erythematous and bulging. Nose: Congestion present. Mouth/Throat: Mouth: Mucous membranes are moist. Pharynx: Postnasal drip present. Eyes: Conjunctiva/sclera: Right eye: Right conjunctiva is injected. Exudate present. Left eye: Left conjunctiva is injected. Exudate present. Pupils: Pupils are equal, round, and reactive [...] Diagnoses and all orders for this visit: Type 2 diabetes mellitus without complication, without long-term current use of insulin - POCT Glycated hemoglobin, total -Diabetic protocols reviewed. Discussed and updated current [...] include blindness, heart disease and kidney disease. Acute bacterial conjunctivitis of both eyes - trimethoprim-polymyxin b (Polytrim) ophthalmic solution; Administer 1 drop into affected eye(s) in the morning and 1 drop at noon and 1 drop in the evening and 1 drop before bedtime. Do all this for 7 days. -Initiate abx, take as prescribed, do not stop early. Warm compresses prn. Advised is contagious. Wash hands frequently. Avoid touching eyes whenever possible. Encouraged patient to wash pillow case. If any worsening of symptoms or if patient develops vision loss, f/u with Ophthalmology. Otherwise f/u here prn. Non-recurrent acute suppurative otitis media of left ear without spontaneous rupture of tympanic membrane - amoxicillin-clavulanate (Augmentin) 875-125 MG tablet; Take 1 tablet (875 mg) by mouth in the morning and 1 tablet (875 mg) before bedtime. Do all this for 7 days. -initiate abx. Flonase/oral antihistamine to help dry up secretions. Analgesics OTC prn. documented in this encounter [facility] 02-23-2024 History of Present illness Narrative IV [...] included. Mr. Winters Date of : 1950 [id number] Procedure: Cardioversion Pre-operative Diagnosis: Persistent atrial fibrillation, symptomatic Post-operative Diagnosis: Successful cardioversion to NSR with 300J biphasic Anesthesia: General Anesthesia. Provided by our anesthesia team. Procedure: The procedure was done in the Senior Office [facility]. Benefits, risks and alternatives were explained to the patient and he agreed to proceed. Informed consent obtained. A separate informed consent obtained by our anesthesia team. Timeout obtained by the Senior Office Assistant nurse. The defibrillator pads were attached in [...] cardiac medications. Ej Foster MD, MS, F.A.C.C. [facility], [place] [address] , documented in this encounter [facility] 02-23-2024 Hospital Discharge instructions Jannet Martinez [...] doctor prescribes. Do not take any vitamins, ljjc-pnj-tcdkoul medicines, or herbal products without talking to [...] or uneven pulse. After calling 911, the unit reactor operator may tell you to chew 1 [...] Where can you learn more? Go to [email or web address] and sign in to your [employer] account. Enter A617 in the Search Health Information box to learn more about Electrical Cardioversion: What to Expect at Home. If you do not have an account, please click on the Sign Up Now link. [id number] [employer]. Care instructions adapted under license by [employer]. This care instruction is for use with your licensed healthcare professional. If you have questions about a medical condition or this instruction, always ask your healthcare professional. [employer] disclaims any warranty or liability for your use of this information. Content Version: 10.6.282537; Current as of: April 04, 2014 documented in this encounter [facility] Let[facility] 02-20-2024 History of Present illness Narrative Images from the original note were not included. Zaina Winters is a 73 y.o. male presents with chief complaint of Medicare Annual Wellness Visit Subsequent HPI: HPI Getting an ablation on , having a procedure done by pain management soon sees pain management at [place]. Send results to Dr. Mata at [facility] [place]. Not using cpap tried different mask couldn't [...] Do not crush, chew, or split. HYDROcodone-acetaminophen (Sidney) 5-325 MG tablet 1 tablet, 2 times [...] independence. Living will and durable power of workers compensation attorney reviewed. Updated patient problem list and [...] adult (CMS/HCC) documented in this encounter [facility] 01-01-2024 Telephone encounter Note Sent prescription. [facility] 01-01-2024 Miscellaneous Notes Sent prescription. Informed patient that [facility] and he states I told her those don't work for me He wants you to send something stronger. Resent to [facility] Addended by: RHONA HERRERA on: 12/29/2023 10:45 AM Modules accepted: [facility] [place] I believe the tessalon perles were sent. Patient was seen on 12/25 and has been taking otc cough syrup and it is not helping at all. He is requesting a prescription for cough syrup sent to [facility] in [place]. Ty documented in this encounter [facility] 01-01-2024 History of Present illness Narrative Prescription sent documented in this encounter [facility] 12-29-2023 Telephone encounter Note I sent in a few days of steroids to help with cough [facility] 12-29-2023 Miscellaneous Notes I sent in a few days of steroids to help with cough Can something else be sent in for pt to help with cough other than tesslon perles? Please contact pt with response. [facility] [place] documented in this encounter [facility] 12-29-2023 Telephone encounter Note Can something else be sent in for pt to help with cough other than tesslon perles? Please contact pt with response. [facility] [place] [facility] 12-29-2023 Telephone encounter Note Informed patient that [facility] was [facility] and he states I told her those don't work for me He wants you to send something stronger. [facility] 12-29-2023 Telephone encounter Note Resent to [facility] 12-29-2023 History of Present illness Narrative Prescription sent documented in this encounter [facility] 12-29-2023 Note Addended by: Mirna HERRERA on: 12/29/2023 10:45 AM Modules accepted: Orders [facility] 12-29-2023 Telephone encounter Note [facility] to [facility] [place]. I believe the tessalon perles were sent. [facility] 12-28-2023 History of Present illness Narrative Prescription sent documented in this encounter [facility] 12-28-2023 Telephone encounter Note Patient was seen on 12/25 and has been taking otc cough syrup and it is not helping at all. He is requesting a prescription for cough syrup sent to [facility] in [place]. Ty [facility] 12-26-2023 History of Present illness Narrative [...] mg, Oral, 3 times daily PRN HYDROcodone-acetaminophen (Sidney) 5-325 MG tablet 1 tablet, Oral, 2 [...] symptoms worsen documented in this encounter [facility] 12-21-2023 Telephone encounter Note Quentin bloom - was in for ear infection etc last week . Now he hs it - he's asking if you would just send in what you gave her . [facility] 12-21-2023 Miscellaneous Notes Quentin bloom - was in for ear infection etc last week . Now he hs it - he's asking if you would just send in what you gave her . documented in this encounter [facility] 11-15-2023 History of Present illness [...] day as needed, Disp: , Rfl: HYDROcodone-acetaminophen (Sidney) 5-325 MG tablet, Take 1 tablet by [...] Lou DPM documented in this encounter [facility] 11-15-2023 Instructions Arianna Lou DPM - 11/15/2023 1:00 PM EDT As noted documented in this encounter [facility] 10-23-2023 Telephone encounter Note Patient is calling for refills. He is asking for [facility] day [facility] 10-23-2023 Miscellaneous Notes Patient is calling for refills. He is asking for 90 day [facility] documented in this encounter [facility] 10-11-2023 History of Present illness Narrative Images from the original note were not included. Zaina Winters is a 73 y.o. male presents with chief complaint of Establish Care HPI: Patient fell and hit his face 8 months ago and banged his teeth. 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 documented in this encounter [facility] 03-30-2023 Telephone encounter Note 04/05 @ 1:00 pm . [facility] 03-30-2023 Miscellaneous Notes 04/05 @ 1:00 pm . So that reference # does nothing? His eval was 2/8, and is it noted per [facility] to continue, auth is needed? Would it be ok to schedule? documented in this encounter [facility] 03-30-2023 Telephone encounter Note So that reference # does nothing? His eval was 2/8, and is it noted per [facility] to continue, auth is needed? [facility] 03-30-2023 Telephone encounter Note Would it be ok to schedule? [facility] 03-29-2023 Telephone encounter Note Pt cx PT out. [facility] 03-29-2023 Miscellaneous Notes Pt cx PT out. documented in this encounter [facility] 09-20-2021 Note [id number]#1.00[facility] 09-20-2021 Note [id number]#1.00[facility] 09-18-2021 Note Education Materials POST OPERATIVE TOTAL [...] to the nearest hospital's emergency services department. [facility] 09-18-[address] [facility] Clinical Discharge Summary PERSON INFORMATION Name ZAINA WINTERS Age 70 Years 1950 Sex MALE Language Chadian PCP Jeannine Hurley Marital Status Med Service Observation Acct# Arrival 09/17/2021 08:03:00 Visit Reason SURGERY-RIGHT TOTAL KNEE (GABRIELA) Acuity LOS 000 26:09 Address: [address] [place] [id number] Comment: PROVIDER INFORMATION VITALS INFORMATION Vital Sign [...] range between ( 1.3 and 2.9 ) [place] Abs#: 1.3 x103/mcL -- Normal range between ( 0.0 and 0.8 ) Auto Baso %: 0.0 % -- Normal range between ( 0.2 and 2.0 ) Auto [place] %: 9 % -- Normal range between [...] (Clinic) (CUSTOM) Follow up: With: Address: When: Trenton Redd [address] [place] [address] [address] [place] [address] [facility] (1) 10/01/2021 11:00 AM DIAGNOSIS Acute pain of right knee Comment: PHYS DOC NOTES [facility] 03-04-2021 Note [id number]#1.00[facility] 03-04-2021 Note [id number]#1.00[facility] 03-04-2021 Note [id number]#1.[facility] 03-03-2021 Note Education Materials POST OPERATIVE TOTAL [...] #8 follow up in office with physician business assistant Justo Redd as scheduled #9 NOM[facility] [...] to the nearest hospital's emergency services department. [facility] 03-03-[address] [facility] Clinical Discharge Summary PERSON INFORMATION Name ZAINA WINTERS Age 70 Years 1950 Sex MALE Language Chadian PCP Tonja ERNANDEZ, Jeannine Alfonso Marital Status Med Service Observation Acct# Arrival 03/02/2021 05:52:00 Visit Reason SURGERY - LEFT TOTAL KNEE POSSIBLE STEMS AND AUGS - NEX GEN TIBIA Acuity LOS 000 26:57 Address: [address] [place] [address] Comment: PROVIDER INFORMATION VITALS INFORMATION Vital Sign [...] range between ( 1.3 and 2.9 ) [place] Abs#: 1.9 x103/mcL -- Normal range between ( 0.0 and 0.8 ) Auto Baso %: 0.0 % -- Normal range between ( 0.2 and 2.0 ) Auto [place] %: 10 % -- Normal range between [...] range between ( 74 and 118 ) [facility] Order 03/03/2021 4:47 AM Tube Collected: [...] (Clinic) (CUSTOM) Follow up: With: Address: When: Trenton Redd [address] [place] [address], [facility] [address] [place] [address] Business (1) 03/15/2021 10:30 AM With: Address: When: Jeannine Evangelista [address] [place], [place] [id number] Business (1) DIAGNOSIS Aftercare following left knee joint rep (more content not included)... [facility] 09-23-2020 History of Present illness Narrative Instructed on policies and procedures. documented in this encounter [employer] Phone: Evaluation note Diagnosis Persistent atrial fibrillation (HCC) Atrial fibrillation SOB (shortness of breath) Shortness of breath Essential hypertension Unspecified essential hypertension Other specified diabetes mellitus with other specified complication, unspecified whether supervisor long goods insulin use (HCC) Class 2 obesity with body mass index (BMI) of 36.0 to 36.9 in adult, unspecified obesity type, unspecified whether serious comorbidity present Pain in both lower extremities documented in this encounter [employer] Phone: evaluation note* Diagnosis Left thigh pain- Primary Pain in soft tissues of limb Muscle strain of left thigh, subsequent encounter documented in this encounter [facility] HealthcareEvaluation noteNo assessment information availableMagruder Memorial Hospital Work Phone: Evaluation note* Diagnosis Dermatophytosis of nail- Primary Dystrophic nail Other specified disease of nail Pain around toenail, right foot Pain around toenail, left foot documented in this encounter [facility] HealthcareEvaluation note* Diagnosis Acute right otitis media- Primary Bronchitis Bronchitis, not specified as acute or chronic documented in this encounter [facility]* Diagnosis Bronchitis Bronchitis, not specified as acute or chronic documented in this encounter [facility]* Diagnosis Bronchitis- Primary Bronchitis, not specified as acute or chronic documented in this encounter [facility]* Diagnosis Bronchitis Bronchitis, not specified as acute or chronic documented in this encounter [facility]* Diagnosis Bronchitis- Primary Bronchitis, not specified as acute or chronic documented in this encounter [facility]* Diagnosis Dental abscess- Primary Periapical abscess without sinus documented in this encounter [facility]* Diagnosis Restless legs syndrome Restless legs syndrome (RLS) documented in this encounter [facility] HealthcareEvaluation note* Diagnosis Paroxysmal atrial fibrillation (CMS/HCC) Atrial fibrillation documented in this encounter [facility] HealthcareEvaluation note* Diagnosis Permanent atrial fibrillation (HCC) Atrial fibrillation Chronic anticoagulation Encounter for long-term (current) use of anticoagulants Essential hypertension Unspecified essential hypertension Type 2 diabetes mellitus with diabetic nephropathy, without long-term current use of insulin (HCC) History of COVID-19 Obesity, Class III, BMI 40-49.9 (morbid obesity) Morbid obesity documented in this encounter [facility] note* Diagnosis Permanent atrial fibrillation (HCC) Atrial fibrillation Chronic anticoagulation Encounter for long-term (current) use of anticoagulants Essential hypertension Unspecified essential hypertension Type 2 diabetes mellitus with diabetic nephropathy, without long-term current use of insulin ([facility]) History of COVID-19 Obesity, Class III, BMI 40-49.9 (morbid obesity) Morbid obesity documented in this encounter [facility] note* Diagnosis Acute cough- Primary documented in this encounter [facility] HealthcareEvaluation note* Diagnosis Type 2 diabetes mellitus with diabetic peripheral angiopathy without gangrene ([facility]) documented in this encounter [facility] HealthcareEvaluation note* Diagnosis Paroxysmal atrial fibrillation (HCC)- Primary Atrial fibrillation PAF (paroxysmal atrial fibrillation) ([facility]) Atrial fibrillation documented in this encounter [facility] note* Diagnosis Encounter for wellness examination- Primary Mixed hyperlipidemia ([facility]) Mixed hyperlipidemia Primary hypertension ([facility]) Unspecified essential hypertension Type 2 diabetes mellitus with other specified complication, without long-term current use of insulin ([facility]) Vitamin D deficiency 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 Gastroesophageal reflux disease without esophagitis Esophageal reflux Paroxysmal atrial fibrillation ([facility]) Atrial fibrillation POOL (obstructive sleep apnea) Obstructive sleep apnea (adult) (pediatric) Peripheral edema Edema PVD (peripheral vascular disease) ([facility]) Unspecified peripheral vascular disease Lumbar radiculopathy Thoracic or lumbosacral neuritis or radiculitis, unspecified Restless legs syndrome Restless legs syndrome (RLS) GERD without esophagitis Esophageal reflux Type 2 diabetes mellitus with diabetic peripheral angiopathy without gangrene, without long-term current use of insulin ([facility]) Insomnia, unspecified type Morbid (severe) obesity due to excess calories (CMS/HCC) Colon cancer screening declined Screening PSA (prostate specific antigen) Special screening for malignant neoplasm of prostate Benign prostatic hyperplasia with lower urinary tract symptoms, symptom details unspecified Body mass index (BMI) 40.0-44.9, adult (CMS/HCC) documented in this encounter [facility]* Diagnosis AF (paroxysmal atrial fibrillation) (HCC) Atrial fibrillation [facility] Diagnosis Primary hypertension (CMS/HCC) Unspecified essential hypertension documented in this encounter [facility]* Diagnosis Type 2 diabetes mellitus without complication, without long-term current use of insulin- Primary Acute bacterial conjunctivitis of both eyes Non-recurrent acute suppurative otitis media of left ear without spontaneous rupture of tympanic membrane documented in this encounter [facility]* Diagnosis Acute cough- Primary documented in this encounter [facility]* Diagnosis Paroxysmal atrial fibrillation (CMS/HCC) Atrial fibrillation documented in this encounter [facility]* Diagnosis Localized edema- Primary Edema Restless legs [...] 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 documented in this encounter [facility]* Diagnosis Decreased renal function documented in this encounter [facility]* Diagnosis Spinal stenosis, lumbar region with neurogenic claudication- Primary Bilateral leg weakness Muscle weakness (generalized) documented in this encounter [facility]* Diagnosis Dermatophytosis of nail- Primary Dystrophic nail Other specified disease of nail Pain around toenail, right foot Pain around toenail, left foot documented in this encounter [facility]* Diagnosis Spinal stenosis, lumbar region with neurogenic claudication- Primary Bilateral leg weakness Muscle weakness (generalized) documented in this encounter [facility] note* Diagnosis Spinal stenosis, lumbar region with neurogenic claudication- Primary Bilateral leg weakness Muscle weakness (generalized) Left thigh pain Pain in soft tissues of limb documented in this encounter [facility] HealthcareEvaluation note* Diagnosis Primary hypertension- Primary Unspecified essential hypertension Type 2 diabetes mellitus with diabetic peripheral angiopathy without gangrene, without long-term current use of insulin (HCC) Benign prostatic hyperplasia with lower urinary tract symptoms, symptom details unspecified Paroxysmal atrial fibrillation (HCC) Atrial fibrillation Morbid (severe) obesity due to excess calories ([facility]) documented in this encounter [facility]* Diagnosis Spinal stenosis, lumbar region with neurogenic claudication- Primary Bilateral leg weakness Muscle weakness (generalized) Left thigh pain Pain in soft tissues of limb documented in this encounter [facility]* Diagnosis Spinal stenosis, lumbar region with neurogenic claudication- Primary Bilateral leg weakness Muscle weakness (generalized) Left thigh pain Pain in soft tissues of limb documented in this encounter [facility]* Diagnosis Spinal stenosis, lumbar region with neurogenic claudication- Primary Bilateral leg weakness Muscle weakness (generalized) Left thigh pain Pain in soft tissues of limb documented in this encounter [facility]* Diagnosis Spinal stenosis, lumbar region with neurogenic claudication- Primary Bilateral leg weakness Muscle weakness (generalized) Left thigh pain Pain in soft tissues of limb documented in this encounter [facility] [place], [facility] for visit Narrative* Consultation (Routine) - Pending Review Specialty Diagnoses / Procedures Referred By Jamal hwang Referred To Contact Physical Therapy Diagnoses Left thigh pain Muscle strain of left thigh, subsequent encounter Procedures UT OFFICE/OUTPATIENT NEW HIGH MDM 60 MINUTES Trenton Redd PA [address] [facility] [address] [place] [address] Alex Rico, PT [address] [facility] [address] [place] [address] Referral ID Status Reason Start Date Expiration Date Visits Requested Visits Authorized [id number] Pending Review Consult and Treat 03/23/2023 03/09/2024 1 1 [facility] [place], [facility] for visit Narrative* Rehabilitation - Outpatient (Routine) - Pending Review Specialty Diagnoses / Procedures Referred By Jamal hwang Referred To Contact Physical Therapy Diagnoses Spinal stenosis, lumbar region with neurogenic claudication Bilateral Leg Weakness Procedures UT PHYSICAL THERAPY EVALUATION LOW COMPLEX 20 MINS UT OFFICE/OUTPATIENT NEW HIGH MDM 60 MINUTES Alley Richard NP [address] [place] [address] Phone: tel: fax: [facility] [address] [facility] [address] [place] [address] Phone: tel: fax: Referral ID Status Reason Start Date Expiration Date V isits Requested Visits Authorized [id number] Pending Review 08/30/2024 02/10/2025 2 2 [facility] N[facility]* Rehabilitation - Outpatient (Routine) - Authorized Specialty Diagnoses / Procedures Referred By Contarleth t Referred To Contact Physical Therapy Diagnoses Spinal stenosis, lumbar region with neurogenic claudication Bilateral Leg Weakness Procedures UT PHYSICAL THERAPY EVALUATION LOW COMPLEX 20 MINS UT OFFICE/OUTPATIENT NEW HIGH MDM 60 MINUTES Alley Richard NP [address] [place] [address] Phone: tel: fax: [facility] [address] [address] Phone: tel: fax: Referral ID Status Reason Start Date Expiration Date V isits Requested Visits Authorized [id number] Authorized 08/30/2024 10/31/2024 12 12 [facility] Summary Purpose Family History No [...] mellitus with other specified complication, unspecified whether supervisor long goods insulin use (HCC) Class 2 obesity with body mass index (BMI) of 36.0 to 36.9 in adult, unspecified obesity type, unspecified whether serious comorbidity present Procedures ECHO Complete 2D W Doppler W Color Ej Foster MD [address] [place] [address] [place] [address] [facility] Echo [address] [place] [address] Status Reason Specialty Diagnoses / Procedures Referre d By Contact Referred To Contact Closed Radiology Diagnoses Pain in both lower extremities PVD (peripheral vascular disease) (HCC) Procedures VL LOWER EXTREMITY ARTERIAL SEGMENTAL PRESSURES W PPG Ej Foster MD [address] [place] [address] [place] [address] Status Reason Specialty Diagnoses / Procedures Referre d By Contact Referred To Contact Closed Cardiology Diagnoses Persistent atrial fibrillation (HCC) SOB (shortness of breath) Essential hypertension Other specified diabetes mellitus with other specified complication, unspecified whether supervisor long goods insulin use (HCC) Class 2 obesity with body mass index (BMI) of 36.0 to 36.9 in adult, unspecified obesity type, unspecified whether serious comorbidity present Pain in both lower extremities Procedures Echo 2D w doppler w color complete Ej Foster MD [address] [place] [address] [place] [address] Specialty Diagnoses / Procedures Referred By Contac t Referred To Contact Diagnoses Permanent atrial fibrillation (HCC) Chronic anticoagulation Essential hypertension Type 2 diabetes mellitus with diabetic nephropathy, without long-term current use of insulin (HCC) History of COVID-19 Obesity, Class III, BMI 40-49.9 (morbid obesity) Procedures Echo (TTE) complete (PRN contrast/bubble/strain/3D) UT ECHO TTHRC R-T 2D W/WOM-MODE COMPL SPEC&COLR D UT TTE W OR WO FOL WCON,DOPPLER Shalini Morrow PA-C [address] [place] [id number] Referral ID Status Reason Start Date Expiration Date V isits Requested Visits Authorized [id number] Not Required - RTA 02/05/2024 02/04/2025 1 1 Specialty Diagnoses / Procedures Referred By Contac t Referred To Contact Diagnoses Permanent atrial fibrillation (HCC) Chronic anticoagulation Essential hypertension Type 2 diabetes mellitus with diabetic nephropathy, without long-term current use of insulin (HCC) History of COVID-19 Obesity, Class III, BMI 40-49.9 (morbid obesity) Procedures Extended cardiac holter monitor (3 days-14 day) UT EXTERNAL ECG REC>48HR<7D REVIEW & INTERPRETATION UT EXTERNAL ECG REC>48HR<7D RECORDING UT EXTERNAL ECG REC>7D<15D RECORDING UT EXTERNAL ECG REC>7D<15D REVIEW & INTERPRETATION Shalini Morrow PA-C [address] [place] [address] Referral ID Status Reason Start Date Expiration Date V isits Requested Visits Authorized [id number] Not Required - RTA 02/05/2024 02/04/2025 1 1 Specialty Diagnoses / Procedures Referred By Contac t Referred To Contact Cardiology Diagnoses PAF (paroxysmal atrial fibrillation) ([facility]) Procedures Cardioversion external HC CARDIOVERSION Ej Foster MD [address] [place] [address] [place] [address] Referral ID Status Reason Start Date Expiration Date V isits Requested Visits Authorized [id number] Not Required - RTA 02/22/2024 02/21/2025 1 1 Specialty Diagnoses / Procedures Referred By Contac t Referred To Contact Cardiology Diagnoses AF (paroxysmal atrial fibrillation) ([facility]) Procedures Extended cardiac holter monitor (3 days-14 day) UT EXTERNAL ECG REC>48HR<7D REVIEW & INTERPRETATION UT EXTERNAL ECG REC>48HR<7D RECORDING UT EXTERNAL ECG REC>7D<15D RECORDING UT EXTERNAL ECG REC>7D<15D REVIEW & INTERPRETATION Ej Foster MD [facility] [place] [address] Referral ID Status Reason Start Date Expiration Date Visits Re quested Visits Authorized [id number] Closed 02/26/2024 02/25/2025 1 1 History of Present Illness * Nini Todd - 01/22/2020 11:30 AM EST Explained policies and procedures of an echocardiogram/Doppler study. documented in this encounter* Arianna Allen RN - 02/12/2020 9:42 AM EST Certified Solid Waste Facility Operator reviewed discharge instructions with patient and [...] mellitus with other specified complication, unspecified whether supervisor long goods insulin use (HCC) Class 2 obesity with [...] mellitus with other specified complication, unspecified whether supervisor long goods insulin use (HCC) Class 2 obesity with [...] doctor prescribes. Do not take any vitamins, vmqb-kav-[id number] medicines, or herbal products without talking to [...] or uneven pulse. After calling 911, the unit reactor operator may tell you to chew 1 [...] Where can you learn more? Go to [email or web address] and sign in to your [employer] account. Enter A617 in the Search Health Information box to learn more about Electrical Cardioversion: What to Expect at Home. If you do not have an account, please click on the Sign Up Now link. [employer]. Care instructions adapted under license by [employer]. This care instruction is for use with your licensed healthcare professional. If you have questions about amedical condition or this instruction, always ask your healthcare professional. [employer] disclaims any warranty or liability for your use of this information. Content Version: 10.6.833770; Current as of: April 04, 2014 documented [...] and content) DATE CREATED AUTHOR 12/21/[address] [facility] pital DATE CREATED AUTHOR AUTHOR'S ORGANIZ ATION 06/12/2021 [facility] dical Specialist DATE CREATED AUTHOR AUTHOR'S ORGANIZ ATION 10/25/2021 [facility] DATE CREATED AUTHOR AUTHOR'S ORGANIZ ATION 05/27/2023 [facility] y[facility] DATE CREATED AUTHOR AUTHOR'S ORGANIZ ATION 07/02/2023 [facility] DATE CREATED AUTHOR AUTHOR'S ORGANIZ ATION 02/28/2024 [facility] DATE CREATED AUTHOR AUTHOR'S ORGANIZ ATION 09/14/2024 [facility] DATE CREATED AUTHOR AUTHOR'S ORGANIZ ATION 10/08/2024 [facility] dical Specialists EPIC Reason for Visit [...] W Doppler W Color Ej Foster MD [address] [place] [phone] [facility] Echo [address] [place] [address] Status Reason Specialty Diagnoses / Procedures Referre d By Contact Referred To Contact Closed Radiology Diagnoses Pain in both lower extremities PVD (peripheral vascular disease) (HCC) Procedures VL LOWER EXTREMITY ARTERIAL SEGMENTAL PRESSURES W PPG Ej Foster MD [address] [place] [address] [place] [address] Status Reason Specialty Diagnoses / Procedures Re ferred By Contact Referred To Contact Authorized Cardiology Diagnoses Essential hypertension Persistent atrial fibrillation (HCC) SOB (shortness of breath) Other specified diabetes mellitus with other specified complication, unspecified whether group home insulin use (HCC) COVID-19 Procedures Referral to Cardiac Cath UT CARDIOVERSION ELECTIVE ARRHYTHMIA EXTERNAL Ej Foster MD [address] [place] [address] [place] [address] [place] [address] Status Reason Specialty Diagnoses / Procedures Referre d By Contact Referred To Contact Closed Cardiology Diagnoses Persistent atrial fibrillation (HCC) SOB (shortness of breath) Essential hypertension Other specified diabetes mellitus with other specified complication, unspecified whether supervisor long goods insulin use (HCC) Class 2 obesity with body mass index (BMI) of 36.0 to 36.9 in adult, unspecified obesity type, unspecified whether serious comorbidity present Pain in both lower extremities Procedures Echo 2D w doppler w color complete Ej Foster MD [address] [place] [address] [place] [address] Reason Onset Date Comments re: PT today [...] be covered. He gave a reference # [id number]. Reason Comments Toenail Care PCP: Kenia Mace [...] obesity) Procedures Echo (TTE) complete (PRN contrast/bubble/strain/3D) UT ECHO TTHRC R-T 2D W/WOM-MODE COMPL SPEC&COLR D UT TTE W OR WO FOL WCON,DOPPLER Shalini Morrow PA-C [address] [place] [address] Referral ID Status Reason Start Date Expiration Date V isits Requested Visits Authorized [id number] Not Required - RTA 02/05/2024 02/04/2025 1 1 Specialty Diagnoses / Procedures Referred By Contac t Referred To Contact Diagnoses Permanent atrial fibrillation (HCC) Chronic anticoagulation Essential hypertension Type 2 diabetes mellitus with diabetic nephropathy, without long-term current use of insulin (HCC) History of COVID-19 Obesity, Class III, BMI 40-49.9 (morbid obesity) Procedures Extended cardiac holter monitor (3 days-14 day) UT EXTERNAL ECG REC>48HR<7D REVIEW & INTERPRETATION UT EXTERNAL ECG REC>48HR<7D RECORDING UT EXTERNAL ECG REC>7D<15D RECORDING UT EXTERNAL ECG REC>7D<15D REVIEW & INTERPRETATION Shalini Morrow PA-C [address] [place] [address] Referral ID Status Reason Start Date Expiration Date V isits Requested Visits Authorized [id number] Not Required - RTA 02/05/2024 02/04/2025 1 1 Specialty Diagnoses / Procedures Referred By Contac t Referred To Contact Cardiology Diagnoses PAF (paroxysmal atrial fibrillation) ([facility]) Procedures Cardioversion external HC CARDIOVERSION Ej Foster MD [address] [place] [address] [place] [address] Referral ID Status Reason Start Date Expiration Date V isits Requested Visits Authorized [id number] Not Required - RTA 02/22/2024 02/21/2025 1 1 Reason Comments Medicare Annual Wellness Visit Subsequen t Specialty Diagnoses / Procedures Referred By Contac t Referred To Contact Cardiology Diagnoses AF (paroxysmal atrial fibrillation) (HCC) Procedures Extended cardiac holter monitor (3 days-14 day) UT EXTERNAL ECG REC>48HR<7D REVIEW & INTERPRETATION UT EXTERNAL ECG REC>48HR<7D RECORDING UT EXTERNAL ECG REC>7D<15D RECORDING UT EXTERNAL ECG REC>7D<15D REVIEW & INTERPRETATION Ej Foster MD [address] [place] [address] [place] [address] Referral ID Status Reason Start Date Expiration Date Visits Re quested Visits Authorized [id number] Closed 02/26/2024 02/25/2025 1 1 Reason Comments Diabetes URI Reason Comments Foot Swelling Reason Onset Date Comments PT Initial Eval 08/15/2024 Spinal Stenosis/ b/l leg weakness Call Back 08/15/2024 Call Back x2 08/26/2024 He contacted and scheduled 08/30/24 for PT Eval w/ Leroy Argueta PT. Reason Comments DM Foot Care Established patient presents today for routine diabetic nail care. PCP: Kenia WOODRUFF 07/09/24, A1C: 6.3 (05/2024), BS: 99 Reason Comments Diabetes Care Teams (unrecognized sec tion and content) Blast Furnace Supervisor Relationship Specialty Start Date End Date Bernie [place] MD [address] [facility] [place] [address] PCP - ACO Reach 07/07/22 Bernie Adam MD [address] [facility] [place], [place] [id number] PCP - General Family Medicine 08/01/22 Blast Furnace Supervisor Relationship Specialty Start Date End Date Bernie Adam MD [address] [place], [place] [phone] PCP - ACO Reach 07/07/22 Bernie Adam MD [address] [place] [address] PCP - General Family Medicine 08/01/22 Blast Furnace Supervisor Relationship Specialty Start Date End Date Bernie Adam MD [address] [facility] [place] [address] PCP - ACO Reach 07/07/22 Bernie Adam MD [address] [place] [address] PCP - General Family Medicine 08/01/22 Blast Furnace Supervisor Relationship Specialty Start Date End Date Bernie Adam MD [address] [facility] [place] [address] PCP - ACO Reach 07/07/22 Bernie Adam MD [address] [place] [address] PCP - General Family Medicine 08/01/22 Blast Furnace Supervisor Relationship Specialty Start Date End Date Bernie Adam MD [address] [facility] [place] [address] PCP - ACO Reach 07/07/22 Bernie Adam MD [address] [facility] [place] [address] PCP - General Family Medicine 08/01/22 Team Status: Active Member Role Status Dates Jeannine Evangelista NP-C Primary Care Provider Activ e Team Status: Inactive Member Role Status Dates Trenton Redd PA-C Attending Provider Active S tart: May 11, 2023 End: May 11, 2023 KERA OlsenC Primary Care Provider Activ e Start: May 11, 2023 End: May 11, 2023 Team Status: Inactive Member Role Status Dates Jeannine Evangelista NP-C Primary Care Provider Activ e Start: May 23, 2023 End: May 23, 2023 LEW ChaviraC Attending Provider Active S tart: May 23, 2023 End: May 23, 2023 Blast Furnace Supervisor Relationship Specialty Start Date End Date Bernie Adam MD [address] [place] [address] PCP - General Family Medicine 08/01/22 Bernie Adam MD [address] [place] [address] PCP - ACO Reach 06/14/23 Blast Furnace Supervisor Relationship Specialty Start Date End Date Bernie Adam MD [address] [place] [address] PCP - General Family Medicine 08/01/22 Bernie Adam MD [address] [place] [address] PCP - ACO Reach 06/14/23 Blast Furnace Supervisor Relationship Specialty Start Date End Date Bernie Adam MD [address] [place] [address] PCP - General Family Medicine 08/01/22 Bernie Adam MD [address] [place] [address] PCP - ACO Reach 06/14/23 Blast Furnace Supervisor Relationship Specialty Start Date End Date Bernie Adam MD [address] [place] [address] PCP - General Family Medicine 08/01/22 Bernie Adam MD [address] [place] [address] PCP - ACO Reach 06/14/23 Blast Furnace Supervisor Relationship Specialty Start Date End Date Bernie Adam MD [address] [place] [address] PCP - General Family Medicine 08/01/22 Bernie Aadm MD [address] [place] [address] PCP - ACO Reach 06/14/23 Blast Furnace Supervisor Relationship Specialty Start Date End Date Bernie Adam MD [address] [place] [address] PCP - General Family Medicine 08/01/22 Bernie Adam MD [address] [place] [address] PCP - ACO Reach 06/14/23 Blast Furnace Supervisor Relationship Specialty Start Date End Date Bernie Adam MD [address] [place] [address] PCP - General Family Medicine 08/01/22 Bernie Adam MD [address] [place] [address] PCP - ACO Reach 06/14/23 Blast Furnace Supervisor Relationship Specialty Start Date End Date Bernie Adam MD [address] [place] [address] PCP - General Family Medicine 08/01/22 Bernie Adam MD [address] [place] [address] PCP - ACO Reach 06/14/23 Blast Furnace Supervisor Relationship Specialty Start Date End Date Bernie Adam MD [address] [place] [address] PCP - General Family Medicine 08/01/22 Bernie Adam MD [address] [place] [address] PCP - ACO Reach 06/14/23 Blast Furnace Supervisor Relationship Specialty Start Date End Date Bernie Adam MD [address] [place] [address] PCP - General Family Medicine 08/01/22 Bernie Adam MD [address] [place] [address] PCP - ACO Reach 06/14/23 Blast Furnace Supervisor Relationship Specialty Start Date End Date Jeannine Evangelista APRN - QUANTOMETER OPERATOR [address] [place] [address] PCP - General Nurse Practitioner Family 01/30/20 Blast Furnace Supervisor Relationship Specialty Start Date End Date Jeannine Evangelista APRN - QUANTOMETER OPERATOR [address] [place] [address] PCP - General Nurse Practitioner Family 01/30/20 Blast Furnace Supervisor Relationship Specialty Start Date End Date Bernie Adam MD [address] [place] [address] PCP - General Family Medicine 08/01/22 Bernie Adam MD [address] [place] [address] PCP - ACO Reach 06/14/23 Blast Furnace Supervisor Relationship Specialty Start Date End Date Jeannine Evangelista, BRAKE REPAIRER AIR - QUANTOMETER OPERATOR [address] [place] [address] PCP - General Nurse Practitioner Family 01/30/20 Blast Furnace Supervisor Relationship Specialty Start Date End Date Bernie Adam MD [address] [place] [address] PCP - General Family Medicine 08/01/22 Bernie Adam MD [address] [place] [address] PCP - ACO Reach 06/14/23 Blast Furnace Supervisor Relationship Specialty Start Date End Date Jeannine Evangelista BRAKE REPAIRER AIR - QUANTOMETER OPERATOR [address] [place] [address] PCP - General Nurse Practitioner Family 01/30/20 Blast Furnace Supervisor Relationship Specialty Start Date End Date Bernie Adam MD [address] [place] [address] PCP - General Family Medicine 08/01/22 Bernie Adam MD [address] [place] [address] PCP - ACO Reach 06/14/23 Blast Furnace Supervisor Relationship Specialty Start Date End Date Bernie Adam MD [address] [place] [address] PCP - General Family Medicine 08/01/22 Blast Furnace Supervisor Relationship Specialty Start Date End Date Bernie Adam MD [address] [place] [address] PCP - General Family Medicine 08/01/22 Blast Furnace Supervisor Relationship Specialty Start Date End Date Bernie Adam MD [address] [place] [address] PCP - General Family Medicine 08/01/22 Blast Furnace Supervisor Relationship Specialty Start Date End Date Bernie Adam MD [address] [place] [address] PCP - General Family Medicine 08/01/22 Blast Furnace Supervisor Relationship Specialty Start Date End Date Bernie Adam MD [address] [place] [address] PCP - General Family Medicine 08/01/22 Blast Furnace Supervisor Relationship Specialty Start Date End Date Bernie Adam MD [address] [place] [address] PCP - General Family Medicine 08/01/22 Blast Furnace Supervisor Relationship Specialty Start Date End Date Bernie Adam MD [address] [place] [address] PCP - General Family Medicine 08/01/22 Blast Furnace Supervisor Relationship Specialty Start Date End Date Bernie Adam MD [address] [place] [address] PCP - General Family Medicine 08/01/22 Blast Furnace Supervisor Relationship Specialty Start Date End Date Bernie Adam MD [address] [place] [address] PCP - General Family Medicine 08/01/22 Blast Furnace Supervisor Relationship Specialty Start Date End Date Bernie Adam MD [address] [place] [address] PCP - General Family Medicine 08/01/22 Blast Furnace Supervisor Relationship Specialty Start Date End Date Bernie Adam MD [address] [place] [address] PCP - General Family Medicine 08/01/22 Blast Furnace Supervisor Relationship Specialty Start Date End Date Bernie Adam MD [address] [place] [address] PCP - General Family Medicine 08/01/22 Blast Furnace Supervisor Relationship Specialty Start Date End Date Bernie Adam MD [address] [place] [address] PCP - General Family Medicine 08/01/22 Blast Furnace Supervisor Relationship Specialty Start Date End Date Bernie Adam MD [address] [place] [address] PCP - General Family Medicine 08/01/22 Blast Furnace Supervisor Relationship Specialty Start Date End Date Bernie Adam MD [address] [place] [address] PCP - General Family Medicine 08/01/22 Blast Furnace Supervisor Relationship Specialty Start Date End Date Bernie Adam MD [address] [place] [address] PCP - General Family Medicine 08/01/22 Blast Furnace Supervisor Relationship Specialty Start Date End Date Bernie Adam MD [address] [facility] [place] [address] PCP - General Family Medicine 08/01/22 Blast Furnace Supervisor Relationship Specialty Start Date End Date Bernie Adam MD [address] [facility] [place] [address] PCP - General Family Medicine 08/01/22 Blast Furnace Supervisor Relationship Specialty Start Date End Date Bernie Adam MD [address] [facility] [place] [address] PCP - General Family Medicine 08/01/22 Blast Furnace Supervisor Relationship Specialty Start Date End Date Bernie Adam MD [address] [facility] [place] [address] PCP - General Family Medicine 08/01/22 Blast Furnace Supervisor Relationship Specialty Start Date End Date Bernie Adam MD [address] [facility] [place] [address] PCP - General Family Medicine 08/01/22 Blast Furnace Supervisor Relationship Specialty Start Date End Date Bernie Adam MD [address] [facility] [place] [address] PCP - General Family Medicine 08/01/22 Goals (unrecognized section and content) Goals may [...] BE BASED ON THE PRIMARY CLINICAL RECORDS. [employer] [facility]. provides no warranty or guarantee of the accuracy or completeness of information in this document.
--- NOTE | 2024-10-17 14:12 | PM.CN ---
Consult Note: HPI Data of Consult Patient: known to practice within the last 3 years Consult date: 10/17/24 Requesting Physician: Kelley Richard NP Primary Care Provider: Non-Staff Physician, MD Consult Narrative Reason for consult: left hip pain Narrative: Yang Card a pleasant 74 year old male presents for evaluation of chronic left hip pain. at last visit we focused on lumbar stenosis with NC and trialed PT, which pt did not find beneficial. pt has a hx of left hip OA with benefit to steroidal injections. has failed to benefit from > 6 weeks of HEP/PT, heat, ice, tylenol, and cannot take NSAIDs as he is on eliquis. notes pain 8-9/10 stabbing in left thigh and groin. utilizing gabapentin 600mg BID, robaxin 500-1000mg bid prn pain/spasms, tylenol rn, and hydrocodone-acetaminophen 5-325mg very sparingly with benefit without side effects. pt is not interested in NS consultation or orthopedic consultation, is not interested in scs trial at this time. he would like a repeat left hip injection as prior injection was beneficial cc:: CC: Kelley Richard NP Review of Systems ROS Musculoskeletal Reports: extremity pain and joint pain PFSH PFSH Medical History (Updated 08/14/24 @ 14:17 by Kelley Richard NP) Diabetes ?E11.9 - Type 2 diabetes mellitus without complications (ICD-10) High cholesterol ?E78.00 - Pure hypercholesterolemia, unspecified (ICD-10) Atrial fibrillation, chronic ?I48.20 - Chronic atrial fibrillation, unspecified (ICD-10) HTN (hypertension) ?I10 - Essential (primary) hypertension (ICD-10) Surgical History History of knee surgery ?Z98.890 - Other specified postprocedural states (ICD-10) History of back surgery ?Z98.890 - Other specified postprocedural states (ICD-10) Meds Home Medications and Allergies Home Medications ?Medication ?Instructions ?Recorded ?Confirmed ?Type allopurinol 100 mg tablet 100 mg PO DAILY 06/22/23 08/05/24 History apixaban 5 mg tablet (Eliquis) 5 mg PO BID 06/22/23 08/05/24 History ascorbic acid (vitamin C) 500 mg 500 mg PO DAILY 06/22/23 08/05/24 History chewable tablet atorvastatin 10 mg tablet 10 mg PO DAILY 06/22/23 08/05/24 History cholecalciferol (vitamin D3) 25 1,000 unit PO DAILY 06/22/23 08/05/24 History mcg (1,000 unit) tablet (Vitamin D3) losartan 50 mg-hydrochlorothiazide 1 tab PO DAILY 06/22/23 08/05/24 History 12.5 mg tablet metformin 500 mg tablet 500 mg PO BID 06/22/23 08/05/24 History metoprolol tartrate 25 mg tablet 12.5 mg PO BID 06/22/23 08/05/24 History omeprazole 20 mg capsule,delayed 20 mg PO DAILY 06/22/23 08/05/24 History release ropinirole 1 mg tablet 1.5 mg PO DAILY 06/22/23 08/05/24 History tamsulosin 0.4 mg capsule 0.4 mg PO DAILY 06/22/23 08/05/24 History gabapentin 300 mg capsule 300 mg PO Q12H 02/27/24 08/05/24 History gabapentin 600 mg tablet 600 mg PO BID #60 tabs 04/08/24 08/05/24 Rx hydrocodone 5 mg-acetaminophen 325 1 tab PO BID PRN pain #14 tabs 06/19/24 08/05/24 Rx mg tablet baclofen 10 mg tablet See Rx Instructions .Route 07/17/24 08/05/24 Rx .COMPLEX PRN muscle spasm #30 tabs Allergies Allergy/AdvReac Type Severity Reaction Status Date / Time No Known Drug Allergies Allergy Verified 08/05/24 08:28 Exam Constitutional Documenting provider has reviewed patient's vital signs: yes Common normals: no apparent distress, oriented x3, healthy appearing, alert and well nourished General appearance: cooperative [facility] Common normals: normocephalic, hearing grossly normal bilaterally and moist oral mucous membranes Head and scalp: normocephalic Eye Common normals: PERRL Pupil: PERRL Neck & C-Spine Common normals: full ROM General: normal visual inspection Chest Common normals: inspection of chest normal Respiratory Common normals: normal respiratory effort, no retractions and no use of accessory muscles Extremity Left lower extremity: hip joint Other: moderate pain with internal and external rotation Neuro Common normals: oriented x3 Sensorium/orientation: alert Psych Common normals: mental status grossly normal, thought process normal, cooperative, affect normal, speech normal and activity/motor behavior normal Speech: normal speech Thought process: normal thought process Results Additional Findings Additional findings: If on a controlled substance or opioids, I have checked an [place]AR[place] report on this patient and there are no aberrancies noted in the prescribing history.??If on a controlled substance or opioid a drug screen was completed and reviewed within the last year, and if there has not been a drug screen completed we ordered one today to monitor higher risk, state monitored pain medication use. As part of providing excellent, safe, comprehensive care, the following was completed at our patient's visit: 1. A medication reconciliation and review to ensure accurate knowledge of current/active medications, including asking our patients to inform us about any [id number] medications or herbal remedies/nutritional supplements/alternative remedies. 2. A review to specifically ensure our patients have had annual screening for screening for depression, screening for tobacco use, and screening for unhealthy alcohol use. For concerning screenings had a discussion with the patient, provided patient education, and recommended follow-up with primary care provider when appropriate. If patient noted with a risk of falling, they received education on strength, gait, and balance training to prevent future risk of falling. Portions of this note may have been carried over from the previous visit and updated as appropriate. Please note this office utilizes paper charting in addition to the electronic medical record. A list of current medications, vitals, and PMH is available there as the clinical staff outside of myself do not have access to [facility] charting during the clinic day operations. As part of providing quality comprehensive care the current medications, vitals, and PMH were reviewed in the paper chart. Assessment and Plan Assessment and Plan (1) Osteoarthritis of left hip: Assessment and Plan: The patient has had over 3 months of moderate to severe left hip pain with functional impairment and inadequate response to conservative care including NSAIDS (unless there are contraindication such as concurrent blood thinners), multiple oral or topical pain medications, and home exercise program/physical therapy.? Patient has completed >6 weeks of guided home exercise program and/or formal physical therapy program without relief of their symptoms.? The Oswestry Disability Index was completed, and the patient scored a 24%.? 11/06 left hip injection >50% improvement greater than 4 months Plan repeat left hip injection under fluoroscopy continue current medications continue HEP as tolerated f/u 2 weeks after injection
== END 2024-10-17 13:42 | disposition home or self-care (01) ==
LOC: PM 13:42
PROVIDERS: Visit Provider Nurse Practitioner
DX: M16.12 Unilateral primary osteoarthritis, left hip (principal)
CPT/HCPCS: G0463

== ENCOUNTER 2024-11-18 10:38 | Day surgery (SDC) | payer OTHER, SELFPAY ==
--- OUTSIDE RECORDS SUMMARY | 2024-06-20 09:30 | XMS_ITS ---
Author Organization [facility] vices Address [address] [place], [place] [address], [place] [id number] Care Team Providers Care Rat Breeder Name Role Phone Soo Moreira [phone] REASON FOR VISIT Denture Adjustment Social History Sex Assigned At : Social History Observation Description Sex Assigned At Male Encounters Encounter Location Date Provider Diagnosis [facility] [address] [place], [place] [id number] 06/20/2024 Soo Moreira Plan Of Treatment No Information Progress Notes * Yang CARDDOB:[birth year] (74 yo M)Acc No.[id number]:06/20/2024 Patient: Yang CISNEROS Provider: Elysia Moreira DMD :1950 A ge:73 Y S ex:Male Date:06/20/2024 [facility] Subjective: * Chief Complaints: * 1 . Denture Adjustment. * Medical History: Objective: * Vitals: Assessment: Plan: * Treatment: * Billing Information: * Visit Code: * Procedure Codes: * Electronic signature of Sanjuanita Moreira DMD on 11/18/2024 at 10:40 AM EDT Sign off status: Pending * Provider: Elysia Moreira DMD Date: 0 06/20/2024 Generated for Nina borrero/Wayne/eTchinosmrandolph on: 1 10:40 AM EDT
--- OUTSIDE RECORDS SUMMARY | 2024-11-18 10:40 | XMS_ITS | Encounter Summary ---
Author Organization [facility] Address [address] [place] [address] Care Team Providers Care Ornamental Bronze Worker Name Role Phone Bernie Adam MD Primary Care Provider [phone] Encounter Details Date Type Department Care Team (Late Contact Info) Description 07/10/2024 Orders Only [facility] Family Medicine [address] [place] [address] Bernie Dunham MA [address] [place], [place] [id number] Localized edema (Primary Dx) Social History Tobacco [...] Department Care Team (Late Contact Info) Description 01/08/2025 1:00 PM EST [facility] [address] [place] [phone] Sher Lou DPM [address] [place] [address] 01/20/2025 2:00 PM EST Office Visit [facility] [address] [place] [phone] Kenia Castillo NP [address] [place], [place] [id number] Scheduled Orders Name Type Priority Associated Diagnoses Orde r Schedule ECG 12 lead ECG Routine Localized edema Expected: 07/10/2024 (Approximate), Expires: 07/10/2025 documented as of this encounter Visit Diagnoses Diagnosis Localized edema- Primary Edema documented in this encounter Care Teams Ornamental Bronze Worker Relationship Specialty Start Date End Date Bernie Adam MD [address] [place], [place] [id number] PCP - General Family Medicine 08/01/22 documented as of this encounter
--- OUTSIDE RECORDS SUMMARY | 2024-11-18 10:40 | XMS_ITS | Encounter Summary ---
Author Organization [facility] Address [address] [place] [address] Care Team Providers Care Cylinder Dyer Name Role Phone Bernie Adam MD Unavailable [phone] Bernie Adam MD Primary Care Provider [phone] Bernie Adam MD Unavailable [phone] Bernie Adam MD Unavailable [phone] Encounter Details Date Type Department Care Team (Late st Contact Info) Description 12/02/2022 Abstract [facility] [address] [place] [address] Kenia Castillo NP [address] [place], [place] [id number] Social History Tobacco Use Types Packs/Day Years [...] things Not at all 12/02/2022 1:00 PM EDT Maricruz Lopez MA Feeling down, depressed, or hopeless Not at all 12/02/2022 1:00 PM Maricruz Chung MA Patient Health Questionnaire-2 Score 0 12/02/2022 1:00 PM Missy Chung MA * Question Answer Date of Assessment Author Trouble falling or staying asleep, or sleeping too much Nearly every day 12/02/2022 1:00 PM Maricruz Chung MA Feeling tired or having little energy Nearly every day 12/02/2022 1:00 PM Maricruz Chung MA Poor appetite or overeating Not at all 12/02/2022 1:00 PM Maricruz Chung MA Feeling bad about yourself - or that you are a failure or have let yourself or your family down Not at all 12/02/2022 1:00 PM Maricruz Chung MA Trouble concentrating on things, such as reading the newspaper or watching television Not at all 12/02/2022 1:00 PM Maricruz Chung MA Moving or speaking so slowly that other people could have noticed? Or the opposite - being so fidgety or restless that you have been moving around a lot more than usual. Not at all 12/02/2022 1:00 PM Maricruz Chung MA documented as of this encounter Plan of Treatment Upcoming Encounters Date Type Department Care Team (Late st Contact Info) Description 01/08/2025 1:00 PM EST [facility] [address] [place] [phone] Sher Lou DPM [address] [facility] [address] 01/20/2025 2:00 PM EST [facility] [address] [place] [phone] Kenia Castillo NP [address] [place], [place] [id number] documented as of this encounter Visit Diagnoses Not on filedocumented in this encounter Care Teams Cylinder Dyer Relationship Specialty Start Date End Date Bernie Adam MD [address] [place], [place] [phone] PCP - ACO Reach 07/07/22 04/13/23 Bernie Adam MD [address] [place], [place] [id number] PCP - General Family Medicine 08/01/22 Bernie Adam MD [address] [place], [place] [id number] PCP - ACO Reach 06/14/23 03/21/24 Bernie Adam MD [address] [place], [place] [id number] PCP - ACO Reach 03/29/24 05/16/24 documented as of this encounter
--- OUTSIDE RECORDS SUMMARY | 2024-11-18 10:40 | XMS_ITS | Encounter Summary ---
Author Organization [facility] Address [address] [facility] [address], [address] [place] [address] Care Team Providers Care Log Pond Worker Name Role Phone EvangelistaJeannine levin Naty ADVANCED NURSING PROFESSOR - FOOT ORTHOPEDIST Primary Care P rovider Reason for Visit * Reason Comments Medication Refill Encounter Details Date Type Department Care Team (Late Contact Info) Description 01/20/2021 Refill [facility] [address] [address] Ej Foster MD [address] [place] [address] [place] [address] Medication Refill Social History Tobacco Use Types [...] Department Care Team (Late Contact Info) Description 11/20/2024 1:00 PM EDT Office Visit [facility] [address] [address] Marcelle Chowdhury, ADVANCED NURSING PROFESSOR - FOOT ORTHOPEDIST [address] [place] [address] [place] [address] 6 month documented as of this encounter Visit Diagnoses Not on filedocumented in this encounter Care Teams Log Pond Worker Relationship Specialty Start Date End Date Jeannine Evangelista APRN - FOOT ORTHOPEDIST [address] [place], [place] [phone] PCP - General Nurse Practitioner, Family 01/30/20 documented as of this encounter
--- OUTSIDE RECORDS SUMMARY | 2024-11-18 10:40 | XMS_ITS | Clinical Summary ---
Author Organization [facility] Healthcare Address [address] [place] [address] Care Team Providers Care Pop Singer Name Role Phone Bernie Adam MD Primary Care Provider [phone] Allergies No known active allergies Medications VITAMIN D, CHOLECALCIFEROL, PO Active Bioflavonoid Products (VITAMIN C PLUS PO) Take by mouth Active gabapentin (Neurontin) 300 MG capsule Take 300 mg by mouth in the morning and 300 mg before bedtime. 4 Active amiodarone (Pacerone) 200 MG tablet Oral for 30 Days 5 Active tamsulosin (Flomax) 0.4 MG 24 hr capsuleIndications: Benign prostatic hyperplasia with nocturia Take 1 capsule (0.4 mg) by mouth at bedtime 90 capsule 1 5 Active rOPINIRole (Requip) 1 MG tabletIndications:R estless Leg Syndrome Take 1.5 tablets (1.5 mg) by mouth at bedtime 135 tablet 1 5 Active omeprazole (PriLOSEC) [address] capsuleIndications: Gastroesophageal reflux disease without esophagitis Take 1 capsule (20 mg) by mouth in the morning. Take before meals. Do not crush or chew. 90 capsule 1 5 Active metoprolol tartrate (Lopressor) 50 MG tabletIndications:P rimary hypertension,Paroxy smal atrial fibrillation (HCC) Take 1 tablet (50 mg) by mouth in the morning and 1 tablet (50 mg) before bedtime. 180 tablet 1 5 Active metFORMIN (Glucophage) 500 MG tabletIndications:T ype 2 diabetes mellitus with diabetic peripheral angiopathy without gangrene (HCC) Take 1 tablet (500 mg) by mouth in the morning and 1 tablet (500 mg) in the evening. Take with meals. 180 tablet 1 5 Active losartan-hydroCHLOR Othiazide (Hyzaar) 50-12.5 MG tabletIndications:P rimary hypertension Take 1 tablet by mouth in the morning. 90 tablet 1 5 Active atorvastatin (Lipitor) 10 MG tabletIndications:O ther hyperlipidemia Take 1 tablet (10 mg) by mouth in the morning. 90 tablet 3 5 Active apixaban (Eliquis) 5 MG tabletIndications:P aroxysmal atrial fibrillation (HCC) Take 1 tablet (5 mg) by mouth in the morning and 1 tablet (5 mg) before bedtime. 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 90 tablet 1 5 Active methocarbamol (Robaxin) 500 MG tablet Take 500 mg by mouth every 8 (eight) hours if needed 5 Active finasteride (Proscar) 5 MG tabletIndications:B enign prostatic hyperplasia with lower urinary tract symptoms, symptom details unspecified Take 1 tablet (5 mg) by mouth Daily Do not crush, chew, or split. 90 tablet 1 5 Active Active Problems Problem Noted Date Diagnosed Date Body mass index (BMI) 40.0-44.9, adult 5 Limb weakness 06/16/2023 Numbness 06/16/2023 Paresthesia 06/16/2023 [...] joint present 03/03/2021 Vitamin D deficiency 05/14/2020 [id number] condition 04/27/2020 COVID-19 04/27/2020 Type 2 diabetes mellitus without complications 1 03/03/2019 Paroxysmal atrial fibrillation 12/17/2019 Impaired fasting glucose 12/12/2018 Peripheral edema 11/28/2018 Tinea pedis 11/28/2018 Psoriasis 06/26/2017 Chronic gouty arthritis 07/29/2015 Polio ([facility]) 07/29/2015 Resolved Problems Problem Noted Date Diagnosed Date Resolved Date Other viral pneumonia 12/18/20192023 Pneumonia due to COVID-19 virus 12/16/2019 09/19/2023 Pure hyperglyceridemia 12/12/201810/04 Sinus pain 12/12/2018 09/19/2023 Encounters Date Type Department Care Team Description 10/07/2024 3:00 PM EDT Treatment [facility] [address] [facility] [address] [place] [address] Franco Sharpe, PROTECTION ANALYST Spinal stenosis, lumbar region with neurogenic claudication (Primary Dx); Bilateral leg weakness; Left thigh pain 10/07/2024 Bamboo flowsheet [facility] [address] [facility] [address] [place] [address] Franco Sharpe, PROTECTION ANALYST 10/07/2024 Travel 2024 2:00 PM EDT Treatment [facility] [address] [facility] [address] [place] [address] Maddie Latham, PROTECTION ANALYST Spinal stenosis, lumbar region with neurogenic claudication (Primary Dx); Bilateral leg weakness; Left thigh pain 2024 Bamboo flowsheet [facility] [address] [place] [place] [address] Loni Lathamissa, PROTECTION ANALYST 2024 Travel 09/26/2024 3:00 PM EDT Treatment [facility] [address] [place] [place] [address] Kelblealberto, Maddie, PROTECTION ANALYST Spinal stenosis, lumbar region with neurogenic claudication (Primary Dx); Bilateral leg weakness; Left thigh pain 09/26/2024 Bamboo flowsheet [facility] [address] [place] [place] [address] Noa, Maddie, PROTECTION ANALYST 09/26/2024 Travel 09/23/2024 2:30 PM EDT Treatment [facility] [address] [place] [place] [address] Jgblealberto, Maddie, PROTECTION ANALYST Spinal stenosis, lumbar region with neurogenic claudication (Primary Dx); Bilateral leg weakness; Left thigh pain 09/23/2024 Bamboo flowsheet [facility] [address] [facility] [address] [place] [address] Noa, Maddie, PROTECTION ANALYST 09/23/2024 Travel 09/19/2024 2:00 PM EDT Treatment [facility] [address] [facility] [address] [place] [address] Franco Sharpe, PROTECTION ANALYST Spinal stenosis, lumbar region with neurogenic claudication (Primary Dx); Bilateral leg weakness; Left thigh pain 09/19/2024 Bamboo flowsheet [facility] [address] [facility] [address] [place] [address] Franco Sharpe, PROTECTION ANALYST 09/19/2024 Travel 09/18/2024 1:00 PM EDT Office Visit [facility] [address] [place] [facility] [place] [address] Kenia Castillo, KIERA Primary hypertension (Primary Dx); Type 2 diabetes mellitus with diabetic peripheral angiopathy without gangrene, without long-term current use of insulin (HCC); Benign prostatic hyperplasia with lower urinary tract symptoms, symptom details unspecified; Paroxysmal atrial fibrillation (HCC); Morbid (severe) obesity due to excess calories ([facility]) 09/18/2024 Bamboo flowsheet [facility] [address] [place] [address] Kenia Castillo NP 09/18/2024 Travel 09/16/2024 2:30 PM EDT Treatment [facility] [address] [facility] [address] [place] [address] Franco Sharpe, PROTECTION ANALYST Spinal stenosis, lumbar region with neurogenic claudication (Primary Dx); Bilateral leg weakness; Left thigh pain 09/16/2024 Bamboo flowsheet [facility] [address] [facility] [address] [place] [address] Franco Sharpe, PROTECTION ANALYST 09/16/2024 Travel 09/09/2024 2:30 PM EDT Treatment [facility] [address] [facility] [address] [place] [address] Maddie Latham, PROTECTION ANALYST Spinal stenosis, lumbar region with neurogenic claudication (Primary Dx); Bilateral leg weakness 09/09/2024 Bamboo flowsheet [facility] [address] [facility] [address] [place] [address] Maddie Latham, PROTECTION ANALYST 09/09/2024 Travel 09/03/2024 1:00 PM EDT Procedure Visit [facility] [address] [place] [address] Sher Lou DPM Dermatophytosis of nail (Primary Dx); Dystrophic nail; Pain around toenail, right foot; Pain around toenail, left foot 09/03/2024 Bamboo flowsheet [facility] [address] [place] [address] Sher Lou DPM 09/03/2024 Travel 09/02/2024 Travel 08/30/2024 12:30 PM EDT Evaluation [facility] [address] [place] [place] [address] Valerie Argueta, PT Spinal stenosis, lumbar region with neurogenic claudication (Primary Dx); Bilateral leg weakness 08/30/2024 Plan of Care Documentation [facility] [address] [place] [place] [address] 08/30/2024 Bamboo flowsheet [facility] [address] [place] [place] [address] Valerie Argueta, VISHAL 08/30/2024 Travel from Last 3 Months Immunizations Immunization [...] Sign Reading Time Taken Comments Blood Pressure 130/78 09/18/2024 12:54 PM EDT Pulse 78 09/18/2024 12:54 PM EDT Temperature 37.2 C (98.9 F) 05/20/2024 1:54 PM EDT Respiratory Rate 18 09/18/2024 12:54 PM EDT Oxygen Saturation 98% 09/18/2024 12:54 PM EDT Inhaled Oxygen Concentration - - Weight 139 kg (306 lb) 09/18/2024 12:54 PM EDT Height 181.6 cm (5' 11.5 ) 09/18/2024 12:54 PM E DT Body Mass Index 42.08 09/18/2024 12:54 PM EDT Plan of Treatment Upcoming Encounters Date Type Department Care Team (Late st Contact Info) Description 01/08/2025 1:00 PM EST Procedure Visit [facility] [address] [place] [address] Sher Lou, SAHARA [address] [place], [place] [address] 01/20/2025 2:00 PM EST Office Visit [facility] [address] [place] [address] Kenia Castillo NP [address] [place], [place] [id number] Health Maintenance Due Date Last Done Comments Diabetes: Retinopathy Screening 12/02/2022 Influenza Vaccine (#1) 2024 4, 11/01/2022, 11/01/2021, Additional history exists Diabetes: Hemoglobin A1C 12/19/2024 025, 05/20/2024, 02/20/2024, Additional history exists Diabetes: Urine Protein Screening 02/19/2025 02/20/2024, 11/01/2022, 12/07/2021, Additional history exists Medicare Annual Wellness (AWV) 02/19/2025 0 02/20/2024, 02/20/2024, 12/02/2022, Additional history exists Pneumococcal Vaccine: 65+ Years Completed 11/21/2023, 12/02/2022, 07/29/2015, Additional history exists Procedures Procedure Name Priority Date/Time Associated Diagnosis Comments POCT GLYCATED HEMOGLOBIN, TOTAL Routine 09/18/2024 1:03 PM EDT Type 2 diabetes mellitus with diabetic peripheral [...] Recently Relevant to Health Maintenance Results * POCT Glycated hemoglobin, total (09/18/2024 1:03 PM EDT) Hemoglobin A1C 6.4 Capillary 09/18/2024 1:03 PM EDT Kenia Castillo NP POINT OF [...] Performing Organization Information Site ID: QPT Name: [facility] Address: [address] [place] [address], [address] [place] [id number] Director: Curtis Lyons MD Kenia Castillo NP LAB URINE ORDERABLES Final Resu lt [facility] * Color Fundus Photography - OU - Both Eyes (12/02/2020 12:00 PM EDT) Anatomical Region Laterality Modality Head Fundus Photograp hy 12/02/2020 12:0 0 PM EDT Narrative 12/02/2020 12:00 PM EDT PERFORMED AT [facility] LOCATION:[id number] NDR Procedure Note CONVERSION, GENERIC - 06/29/2022 PERFORMED AT [facility] LOCATION:[id number] [facility] us Jeannine Evangelista DATA INTEGRATION ARCHITECT OPHTH PHOTOGRAPHY Final Result from Last 3 Months or Most Recently Relevant to Health Maintenance Insurance [employer] MEDICARE Care Teams Pop Singer Relationship Specialty Start Date End Date Bernie Adam MD [address] [place] [address] PCP - General Family Medicine 08/01/22
--- OUTSIDE RECORDS SUMMARY | 2024-11-18 10:40 | XMS_ITS | Encounter Summary ---
Author Organization [facility] Address [address] [place] [address] Care Team Providers Care Client Service Supervisor Name Role Phone Bernie Adam MD Unavailable [phone] Bernie Adam MD Primary Care Provider [phone] Bernie Adam MD Unavailable [phone] Bernie Adam MD Unavailable [phone] Encounter Details Date Type Department Care Team (Late st Contact Info) Description 11/16/2022 Abstract [facility] [address] [place] [address] Sher Lou DPM [address] [place] [id number] Social History Tobacco Use Types Packs/Day Years [...] 01/08/2025 1:00 PM EST Procedure Visit [facility] [address] [place] [address] Sher Lou, DPM [address] [place] [address] 01/20/2025 2:00 PM EST Office Visit [facility] [place] [facility] [address] [place] [place] [address] Kenia Castillo, KIERA [address] [facility] [place] [address] documented as of this encounter Visit Diagnoses Not on filedocumented in this encounter Care Teams Client Service Supervisor Relationship Specialty Start Date End Date Bernie Adam MD [address] [place] [address] PCP - ACO Reach 07/07/22 04/13/23 Bernie Adam MD [address] [place] [place] [address] PCP - General Family Medicine 08/01/22 Bernie Adam MD [address] [place] [address] PCP - ACO Reach 06/14/23 03/21/24 Bernie Adam MD [address] [place] [address] PCP - ACO Reach 03/29/24 05/16/24 documented as of this encounter
--- OUTSIDE RECORDS SUMMARY | 2024-11-18 10:41 | XMS_ITS | Clinical Summary ---
Author Organization [facility] Address [address] [facility], [address] [place] [address] Care Team Providers Care Wiring Technician Name Role Phone Jeannine Evangelista ENTERPRISE SOFTWARE DEVELOPER - HOTEL GUEST SERVICE AGENT Primary Care P rovider Allergies No known [...] 12/17/2019 Pneumonia due to COVID-19 virus 12/16/2019 Social History Tobacco Use Types Packs/Day [...] Care Team (Late st Contact Info) Description 11/20/2024 1:00 PM EDT Office Visit [facility] Part of [address] [address] Marcelle Chowdhury, ENTERPRISE SOFTWARE DEVELOPER - HOTEL GUEST SERVICE AGENT [address] [place] [address] [place] [address] 6 month Health Maintenance Due Date Last Done Comments Depression Screen 1960 Diabetic Alb to Cr ratio (uACR) test 1966 Hepatitis C screen 1966 Shingles vaccine (2 of 3) 07/17/2012 05/22/2012 GFR test (Diabetes, CKD 3-4, OR last GFR 15-59) 05/04/2023 05/03/2022, 03/10/2020, 01/22/2020 Annual Wellness Visit (Medicare Advantage) 02/14/2024 12/07/2021 Flu vaccine (#1) 09/13/2024 11/21/2023, , 11/01/2021, Additional history exists COVID-19 Vaccine ( season) 2024 11/21/2023, 12/05/2022, 11/01/2021, Additional history exists DTaP/Tdap/Td vaccine (2 - Td or Tdap) 11/28/2028 11/28/2018 A1C test (Diabetic or Prediabetic) Discontinued 03/10/2020, 01/22/2020 Lipids Discontinued 03/10/2020 Respiratory Syncytial Virus (RSV) or age 60 yrs+ Completed 12/05/2022 Pneumococcal 50+ years Vaccine Completed 11/21/2023, 12/02/2022, [...] Procedure Name Priority Date/Time Associated Diagnosis Comments BASIC METABOLIC PANEL Routine 05/03/2022 12:37 PM [...] mellitus with other specified complication, unspecified whether parts counterman insulin use (HCC) Class 2 obesity with [...] Relevant to Health Maintenance Results * (ABNORMAL) Basic Metabolic Panel (05/03/2022 12:37 PM EDT) Pathologist [facility] Glucose 119(H) 70 - 99 mg/dL 05/03/2022 12:37 PM T [facility] BUN 18 8 - 23 mg/dL 05/03/2022 12:37 PM [facility] Creatinine 0.78 0.70 - 1.20 mg/dL 05/03/2022 12:37 PM [facility] Est, Glom Filt Rate >60 >60 mL/min/1.7 3m2 05/03/2022 12:37 PM [facility] Comment: These results are not [...] 23(H) 9 - 20 05/03/2022 12:37 PM T [facility] Calcium 9.1 8.6 - 10.4 mg/dL 05/03/2022 12:37 PM [facility] Sodium 140 135 - 144 mmol/L 05/03/2022 12:37 PM [facility] Potassium 3.9 3.7 - 5.3 mmol/L 05/03/2022 12:37 PM EDT [facility] Chloride 102 98 - 107 mmol/L 05/03/2022 12:37 PM EDT [facility] CO2 27 20 - 31 mmol/L 05/03/2022 12:37 PM EDT [facility] Anion Gap 11 9 - 17 mmol/L 05/03/2022 12:37 PM EDT [facility] BLOOD SPECIMEN / Unknown 05/03/2022 12:37 PM EDT 05/03/2022 12:38 PM EDT us Ej Foster MD CHEMISTRY ORDERABLES Final Resu lt [facility] [address] [phone] * Hemoglobin A1C (03/10/2020 12:35 PM EST) Hemoglobin A1C 5.4 4.0 - 6.0 % 03/10/2020 12:35 PM EST [facility] Estimated Avg Glucose 108 mg/dL 03/10/2020 12:35 PM EST [employer] Comment: The ADA and AACC recommend providing the estimated average glucose result to permit better patient understanding of their HBA1c result. BLOOD SPECIMEN / Unknown 03/10/2020 12:35 PM EST 03/10/2020 12:36 PM EST us Ej Foster MD CHEMISTRY ORDERABLES Final Resu lt Performing Organization Address [facility]/ZIP Co de Phone Number [facility] [address] [phone] [employer] [address] [place] [address] * Lipid Panel (03/10/2020 12:35 PM EST) Cholesterol 162 <200 mg/dL 03/10/2020 12:35 PM EST [employer] [facility] Comment: Cholesterol Guidelines: <200 Desirable 200-240 Borderline >240 Undesirable HDL 41 >40 mg/dL 03/10/2020 12:35 PM EST [employer] Comment: HDL Guidelines: <40 Undesirable 40-59 Borderline >59 Desirable LDL Cholesterol 102 0 - 130 mg/dL 03/10/2020 12:35 PM EST [facility] Comment: LDL Guidelines: <100 Desirable 100-129 Near to/above Desirable 130-159 Borderline >159 Undesirable Direct (measured) LDL and calculated LDL are not interchangeable tests. Chol/HDL Ratio 4.0 <5 03/10/2020 12:35 PM EST [facility] Comment: Triglycerides 97 <150 mg/dL 03/10/2020 12:35 PM EST [facility] Comment: Triglyceride Guidelines: <150 Desirable 150-199 Borderline 200-499 High >499 Very high Based on AHA Guidelines for fasting triglyceride, November 2011. VLDL NOT REPORTED 1 - 30 mg/dL 03/10/2020 12:35 PM EST [facility] BLOOD SPECIMEN / Unknown 03/10/2020 12:35 PM EST 03/10/2020 12:36 PM EST us Ej Foster MD CHEMISTRY ORDERABLES Final Resu lt [facility] [address] [place] [address], [facility] [phone] [facility] [address] [place] [address], [facility] [phone] from Last 3 Months or Most Recently Relevant to Health Maintenance Insurance [employer] Advance Directives * Full Code (Latest Code Status on File) Date Activated Date Inactivated Comments 02/12/2020 7:58 AM 02/12/2020 11:52 AM Care Teams Wiring Technician Relationship Specialty Start Date End Date Jeannine Evangelista, ENTERPRISE SOFTWARE DEVELOPER - HOTEL GUEST SERVICE AGENT [address] [place] [address] PCP - General Nurse Practitioner, Family 01/30/20
--- OUTSIDE RECORDS SUMMARY | 2024-11-18 10:41 | XMS_ITS | Patient Health Record ---
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 Marked as resubmit/. Action sent to Rocio.Jaam Cindy 05/27/2024 01:00:40 PM >Submitted request for prior on [employer] website, Rocio Yun 05/31/2024 10:44:31 AM >Prior auth extension approved, Asmita Haddad 06/06/2024 01:38:11 PM >CDs were delivered to pt today. Marked as completed tx. 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) Referral Organization [facility] Referring Provider First Name Soo Referring Provider Last Name Harish Referring Provider Speciality [facility] Referred Provider Specialty Authorizatio n General Notes Asmita Haddad 025 03:09:38 PM >Marked as ready to submit., Rocio Yun 02/28/2024 03:19:51 PM >Submitted prior on [employer] website, Clare Gorman 03/07/2024 03:39:21 PM >Approved, [...] End Date Status Metoprolol Tartrate 25 MG Oral; Duration: 90 Days Active Atorvastatin Calcium 10 MG Oral; Duration: 90 Days Active Amiodarone HCl 200 MG Oral; Duration: 90 Days Active Allopurinol 100 MG Oral; Duration: 90 Days Active HYDROcodone-Acetaminophen 5-325 MG 1 tablet as needed Orally every 6 hrs; Duration: 3 days 02/28/2024 Active HYDROcodone-Acetaminophen 5-325 MG 1 tablet as needed Orally every 6 hrs; Duration: 3 days 02/28/2024 Active Amiodarone HCl 200 MG Oral; Duration: 30 Days Active Eliquis 5 MG 1 tablet Orally Twic e a day; Duration: 30 day(s) 06/21/2023 Active tiZANidine HCl 2 MG Oral; Duration: 5 Days Active metFORMIN HCl 500 MG Oral; Duration: 90 Days Active Tamsulosin HCl 0.4 MG Oral; Duration: 90 Days Active rOPINIRole HCl 1 MG Oral; Duration: 90 Days Active Omeprazole 20 MG Oral; Duration: 90 Days Active Social History Tobacco Use: [...] Body mass index 40+ - morbidly obese (331403633) BMI 40.0-44.9, adult (Z68.41) Active confirmed Vital Signs Heart Rate 66 /min 06/13/2024 Blood pressure diastolic 89 mm Hg 06/13/2024 Height-cm 182.88 cm 06/24/2024 Weight-kg 141.98 kg 06/24/2024 Height 72 in 06/24/2024 Blood pressure systolic 153 mm Hg 06/13/2024 Weight 313 lbs 06/24/2024 BMI 42.45 kg/m2 06/24/2024 Encounters Encounter Location Date Provider Diagnosis [facility] [address] [place] [address] [id number] 02/28/2024 Soo Moreira BMI 40.0-44.9, rasta lt Z68.41 ; Dietary counseling Z71.3 ; Exercise counseling Z71.82 ; Necrosis of pulp K04.1 ; Encounter for dental examination and cleaning with abnormal findings Z01.21 and Complete loss of teeth, unspecified cause, class I K08.101 [facility] [address] [place] [address] [id number] 04/24/2024 Soo Moreira Other specified disorders of teeth and supporting structures K08.[address] [facility] [address] [place] [address] [id number] 05/01/2024 Soo Moreira Other specified disorders of teeth and supporting structures K08.8 [facility] [address] [place] [address], [place] [id number] 05/09/2024 Soo Moreira Other specified disorders of teeth and supporting structures K08.8 [facility] [address] [place] [address], [place] [phone] 05/16/2024 Soo Moreira Other specified disorders of teeth and supporting structures K08.8 [facility] [address] [place] [address], [place] [id number] 05/23/2024 Soo Moreira Other specified disorders of teeth and supporting structures K08.8 [facility] [address] [place] [address], [place] [id number] 05/30/2024 Soo Moreira Other specified disorders of teeth and supporting structures K08.8 [facility] [address] [place] [address], [place] [phone] 06/06/2024 Soo Moreira BMI 40.0-44.9, rasta lt Z68.41 and Complete loss of teeth, unspecified cause, class I K08.[address] [facility] [address] [place] [address], [place] [id number] 06/10/2024 Soo Moreira BMI 40.0-44.9, rasta lt Z68.41 and Other specified disorders of teeth and supporting structures K08.[address] [facility] [address] [place] [address], [place] [id number] 06/13/2024 Soo Moreira Other specified disorders of teeth and supporting structures K08.[address] [facility] [address] [place] [address], [place] [id number] 06/24/2024 Soo Moreira Other specified disorders of teeth and supporting structures K08.8 [facility] [address] [place] [address] [id number] 02/28/2024 Soo Moreira Assessments Encounter Date Diagnosis (ICD Code) Assessment [...] Insured Coverage Start Date Coverage End Date [facility] [address] [place] [address] [id number] Yang Card Self - patient is the insured 4 Medical (General) History Medical History History ICD Code high blood pressure artificial joints blood thinner A-fib diabetes
--- OUTSIDE RECORDS SUMMARY | 2024-11-18 10:41 | XMS_ITS | Encounter Summary ---
Author Organization [facility] Address [address] [place] [address] Care Team Providers Care Law Examiner Name Role Phone Bernie Adam MD Primary Care Provider [phone] Bernie Adam MD Unavailable [phone] Bernie Adam MD Unavailable [phone] Reason for Visit * Reason Comments Med Refill Encounter Details Date Type Department Care Team (Late st Contact Info) Description 09/12/2023 Refill [facility] Family Medicine [address] [place] [address] Kenia Castillo NP [address] [place], [place] [id number] Type 2 diabetes mellitus with diabetic peripheral [...] EST Procedure Visit [facility] [address] [facility] [place] [phone] Sher Lou DPM [address] [place] [address] 01/20/2025 2:00 PM EST Office Visit [facility] [address] [place] [phone] Kenia Castillo NP [address] [place] [address] documented as of this encounter Visit Diagnoses Diagnosis Type 2 diabetes mellitus with diabetic peripheral angiopathy without gangrene (HCC) documented in this encounter Care Teams Law Examiner Relationship Specialty Start Date End Date Bernie Adam MD [address] [facility] [place] [address] PCP - General Family Medicine 08/01/22 Bernie Adam MD [address] [facility] [place] [address] PCP - ACO Reach 06/14/23 03/21/24 Bernie Adam MD [address] [facility] [place] [address] PCP - ACO Reach 03/29/24 05/16/24 documented as of this encounter
--- OUTSIDE RECORDS SUMMARY | 2024-11-18 10:41 | XMS_ITS | Encounter Summary ---
Author Organization [facility] Address [address] [place] [address] Care Team Providers Care Saw Grinder Name Role Phone Bernie Adam MD Unavailable Bernie Adam MD Primary Care Provider [phone] Bernie Adam MD Unavailable [phone] Bernie Adam MD Unavailable [phone] Encounter Details Date Type Department Care Team (Late st Contact Info) Description 09/23[facility]2022 [facility] [address] [place] [address] Bernie Adam MD [address] [place], [place] [phone] Pulled muscle (Primary Dx) Social History Tobacco [...] Description 01/08/2025 1:00 PM EST [facility] [address] [place] [phone] Sher Lou DPM [address] [place] [address] 01/20/2025 2:00 PM EST Office Visit [facility] [address] [place] [phone] Kenia Castillo NP [address] [place] [address] documented as of this encounter Visit Diagnoses Diagnosis Pulled muscle- Primary Unspecified site of sprain and strain documented in this encounter Care Teams Saw Grinder Relationship Specialty Start Date End Date Bernie Adam MD [address] [place] [address] PCP - ACO Reach 07/07/22 04/13/23 Bernie Adam MD [address] [place] [address] PCP - General Family Medicine 08/01/22 Bernie Adam MD [address] [place] [address] PCP - ACO Reach 06/14/23 03/21/24 Bernie Adam MD [address] [facility] [place] [address] PCP - ACO Reach 03/29/24 05/16/24 documented as of this encounter
--- OUTSIDE RECORDS SUMMARY | 2024-11-18 10:41 | XMS_ITS | Encounter Summary ---
Author Organization [facility] Address [address] [place] [address] Care Team Providers Care Coil Winding Machines Set Up Mechanic Name Role Phone Bernie Adam MD Primary Care Provider [phone] Bernie Adam MD Unavailable [phone] Bernie Adam MD Unavailable [phone] Reason for Visit * Reason Comments Med Refill Encounter Details Date Type Department Care Team (Late st Contact Info) Description 11/19/2023 Refill [facility] Family Medicine [address] [place] [address] Kenia Castillo NP [address] [place], [place] [phone] Type 2 diabetes mellitus with diabetic peripheral [...] Description 01/08/2025 1:00 PM EST [facility] [address] [facility] [place] [phone] Sher Lou DPLesia [address] [place] [address] 01/20/2025 2:00 PM EST Office Visit [facility] [address] [facility] [place] [address] Kenia Castillo NP [address] [place] [address] documented as of this encounter Visit Diagnoses Diagnosis Type 2 diabetes mellitus with diabetic peripheral angiopathy without gangrene (HCC) documented in this encounter Care Teams Coil Winding Machines Set Up Mechanic Relationship Specialty Start Date End Date Bernie Adam MD [address] [facility] [place] [address] PCP - General Family Medicine 08/01/22 Bernie Adam MD [address] [facility] [place] [address] PCP - ACO Reach 06/14/23 03/21/24 Bernie Adam MD [address] [facility] [place] [address] PCP - ACO Reach 03/29/24 05/16/24 documented as of this encounter
--- OUTSIDE RECORDS SUMMARY | 2024-11-18 10:45 | XMS_ITS | CCD ---
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 Name Role Phone Unavailable Primary Care Provider Unavailabl e MISC, DOCTOR Primary Care Unavailable MATTEVI, ARMANDO Admitting Unavailable MATTEVI, ARMANDO Consulting Unavailable MATTELOGAN, ARMANDO Attending Unavailable Rupesh Ulrich Consulting Unavailable Jeannine Evangelista Primary Care Provider Tonja KIM - Jeannine CASH Primary Care P rovider Bernie Adam MD Unavailable [phone] Bernie Adam MD Primary Care Provider EVANS Redd Attending Provider [phone] AWAIS Evangelista Primary Care Provider AWAIS Evangelista [...] Alfonso Primary Care Unavailab cipriano Gieditis , Anduzri Gonzalez Attending Unavailable Giedraitis , Andrius Gonzalez [...] Attending Unavailable BRINK, MONY Attending Unavailable LIZZETH, ALLYE Referring Unavailable Medications Current Medications Medication Drug [...] extended release oral tablet (1 source) Uncompetitive X-rtvzoy-L-aspartate Receptor Antagonist, Sigma-1 Agonist Start: End: take [...] 25 MG tablet Indications: Persistent atrial fibrillation ([facility]) , SOB (shortness of breath) , Fluid retention , Essential hypertension , Other specified diabetes mellitus with other specified complication, unspecified whether buttermaker helper insulin use ([facility]) , Class 2 obesity with body mass [...] 90 capsule 1 12/11/2023 Active polymyxin b 92765 unt/ml / trimethoprim 1 mg/ml ophthalmic solution [...] as needed 06/28/2023 02/20/2024 Discontinued (Therapy completed) [id number] 200 actuat albuterol 0.09 mg/actuat metered dose [...] mellitus with other specified complication, unspecified whether buttermaker helper insulin use (HCC) , Class 2 obesity [...] Long-term current use of anticoagulant; 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] 02-05-2024 Episodic Other aftercare (1 source) penitentiary (current) use of anticoagulants; 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] Onset: 02-05-2024 Episodic [...] including parasitic (20 sources) Post-viral disorder; 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] Onset: 04-27-2020 10-04-2022 Chronic Other infections; [...] unspecified site] Onset: 05-26-2021 10-04-2022 Episodic Other BUGGY MAN infection and poliomyelitis (20 sources) H/O: poliomyelitis; [...] 09-18-2024 HbA1c (Bld) [Mass fraction] 6.4 % [facility] No Panel Informationon 09-18 Interpretation and review of laboratory results Normal [facility] US LOWER EXTREMITY VENO US DUPLEX BILATERALon 07-09-2024 [facility] US LOWER EXTREMITY VENOUS DUPLEX BILATERAL EXAM: [facility] US LOWER EXTREMITY VENOUS DUPLEX BILATERAL [...] II, MD, PHD at 10-Jul-2024 09:19:12 AM [facility] Normal Not Available XR CHEST 2 [...] 05-20-2024 HbA1c (Bld) [Mass fraction] 6.3 % [facility] No Panel Informationon 05-20 Interpretation and review of laboratory results Abnormal [employer] EKG 12 LeadOrdered By: Danny Mascorro on 02-23-2024 Q-T Interval 382 ms [employer] Phone: QRS Duration 96 ms [employer] Phone: QTc Calculation (Bazett) 451 ms [employer] Phone: R Adrian -23 degrees [employer] Phone: T Adrian 22 degrees [employer] Phone: Ventricular Rate 84 BPM [employer] Phone: [employer] Phone: EKG 12 Leadon 02-23-2024 Atrial fibrillation Abnormal ECG ECG not diagnostic for Acute Coronary Syndrome; consider clinical findings When compared with ECG of 12-FEB-2020 08:26, Atrial fibrillation has replaced Sinus rhythm Confirmed by ARIANNA MASCORRO ([id number]) on 02/23/2024 10:09:04 PM [facility] Arianna Mascorro MD - 02/23/2024 Atrial [...] 471 ms [facility] R Adrian -23 degrees [facility] T Adrian -19 degrees [facility] Ventricular [...] ARIANNA MASCORRO ([id number]) on 02/23/2024 9:25:47 PM [facility] Arianna Mascorro MD - 02/23/2024 Normal [...] 56 BPM [facility] P Adrian 17 degrees [facility] P-R Interval 204 ms [facility] Q-T Interval 442 ms [facility] QRS Duration 98 ms [facility] QTc Calculation (Bazett) 426 ms [facility] R Adrian -25 degrees [facility] T Adrian 5 degrees [facility] Ventricular Rate 56 BPM [facility] Sinus bradycardia Otherwise normal ECG When compared with ECG of 23-FEB-2024 12:06, (unconfirmed) Previous ECG has undetermined rhythm, needs review Confirmed by ARIANNA MASCORRO ([id number]) on 02/23/2024 9:11:49 PM [facility] Arianna Mascorro MD - 02/23/2024 Sinus bradycardia Otherwise normal ECG When compared with ECG of 23-FEB-2024 12:06, (unconfirmed) Previous ECG has undetermined rhythm, needs review Confirmed by ARIANNA MASCORRO ([id number]) on 02/23/2024 9:11:49 PM [facility] 25-hydroxyvitamin D3 [Mass/V ol]on 02-21-2024 25-hydroxyvitamin D [Mass/Vol] 36 ng/mL 30 - 100 ng/mL [facility] Comment on above: Vitamin D Status 25- OH Vitamin D: Deficiency: <20 ng/mL Insufficiency: 20 - 29 ng/mL Optimal: > or = 30 ng/mL For 25-OH Vitamin D testing on patients on D2-supplementation and patients for whom quantitation of D2 and D3 fractions is required, the QuestAssureD(TM) 25-OH VIT D, (D2,D3), LC/MS/MS is recommended: order code 26865 (patients >2yrs). See Note 1 Note 1 For additional information, please refer to http://education.TrackerSphere/faq/ZZV448 (This link is being provided for informational/ educational purposes only.) Laboratory - Chemistry and C hemistry - challengeon 02-21-2024 Albumin [Mass/Vol] 4.1 g/dL 3.6 - 5.1 g/dL [facility] Albumin/Globulin [Mass ratio] 2.2 {ratio} [facility] ALP [Catalytic activity/Vol] 72 U/L 35 - 144 U/L [facility] ALT [Catalytic activity/Vol] 13 U/L 9 - 46 U/L [facility] AST [Catalytic activity/Vol] 16 U/L 10 - 35 U/L [facility] Bilirubin [Mass/Vol] 0.6 mg/dL 0.2 - 1 .2 mg/dL [facility] Calcium [Mass/Vol] 9.1 mg/dL 8.6 - 10. 3 mg/dL [facility] Chloride [Moles/Vol] 102 mmol/L 98 - 11 0 mmol/L [facility] CO2 [Moles/Vol] 27 mmol/L 20 - 32 mmol/L [facility] Creatinine [Mass/Vol] 0.87 mg/dL 0.70 - 1.28 mg/dL [facility] GFR/1.73 sq M.predicted among non-blacks MDRD (S/P/Bld) [Vol rate/Area] 90 mL/min/{1.73_m2} > OR = 60 mL/min/1.73m2 [facility] Globulin (S) [Mass/Vol] 1.9 g/dL [facility] Glucose [Mass/Vol] 139 mg/dL High 65 - 99 mg/dL [facility] Comment on above: Fasting reference interval For someone without known diabetes, a glucose value >125 mg/dL indicates that they may have diabetes and this should be confirmed with a follow-up test. Potassium [Moles/Vol] 4 mmol/L 3.5 - 5.3 mmol/L [facility] Prostate specific Ag [Mass/Vol] 0.33 ng/mL < OR = 4.00 [facility] Comment on above: The total PSA value [...] 6 g/dL Low 6.1 - 8.1 g/dL [facility] Sodium [Moles/Vol] 141 mmol/L 135 - 146 mmol/L [facility] Urate [Mass/Vol] 7.5 mg/dL 4.0 - 8.0 mg/dL [facility] Comment on above: Therapeutic target f or gout patients: <6.0 mg/dL Urea nitrogen [Mass/Vol] 17 mg/dL 7 - 25 mg/dL [facility] Urea nitrogen/Creatinine [Mass ratio] SEE NOTE: [facility] Comment on above: Not Reported: BUN an d Creatinine are within reference range. Laboratory - Hematology and Cell countson 02-21-2024 HbA1c (Bld) [Mass fraction] 6.3 % High NINF [facility] Comment on above: For someone without known [...] 1996 panelon 5 Cholesterol [Mass/Vol] 121 mg/dL [facility] - 200 mg/dL [facility] Cholesterol in HDL [Mass/Vol] 40 mg/dL > OR = 40 [facility] Cholesterol in LDL [Mass/Vol] 53 mg/dL mg/dL (calc) [facility] Comment on above: Reference range: <10 0 Desirable range <100 mg/dL for primary prevention; <70 mg/dL for patients with CHD or diabetic patients with > or = 2 CHD risk factors. LDL-C is now calculated using the -Winifred calculation, which is a validated novel method providing better accuracy than the Friedewald equation in the estimation of LDL-C. SS et al. TANA. 2013;310(19): 4792-0741 (http://education.TrackerSphere/faq/FWA976) Cholesterol non HDL [Mass/Vol] 81 mg/dL [facility] Comment on above: For patients with di abetes plus 1 major ASCVD risk factor, treating to a non-HDL-C goal of <100 mg/dL (LDL-C of <70 mg/dL) is considered a therapeutic option. Cholesterol.total/Ch olesterol in HDL [Mass ratio] 3 {ratio} [facility] Interpretation and review of laboratory results Abnormal [facility] Triglyceride [Mass/Vol] 224 mg/dL High [facility] - 150 mg/dL [facility] Comment on above: If a non-fasting specimen was collected, consider repeat triglyceride testing on a fasting specimen if clinically indicated. Chantell et al. J. of Clin. Lipidol. 2015;9:129-169. Performing Organization Information Site ID: QPT Name: [employer] [facility] Address: [address] [place] [address], [address] [place] [id number] Director: Curtis Lyons MD [facility] Microalbumin/Creatinine rati o panel (U)on 02-21-2024 Albumin DL <= 20 mg/L (U) [Mass/Vol] 0.7 mg/dL See Note: [facility] Comment on above: Reference Range: Reference Range Not established Albumin/Creatinine (U) [Mass ratio] 5 NINF [facility] Comment on above: The ADA defines abnormalities [...] [Mass/Vol] 154 mg/dL 20 - 320 mg/dL [facility] [employer] Organization Information Site ID: QPT Name: [employer] [facility] Address: [address] [place] [address], [address] [place] [phone] Director: Curtis Lyons MD [facility] No Panel Informationon 02-20 Interpretation and review of laboratory results Abnormal [facility] PATIENT UNABLE TO VOID; ADVISED TO RETURN FOR COLLECTION. [employer] Information Site ID: QPT Name: [employer] [facility] Address: [address] [place] [address], [address] [place] [phone] Director: Curtis Loyns MD [facility] Cardiac echo study Procedure Ordered By: Arianna Mascorro on 02-05-2024 Ao Root Index 0.86 cm/m2 [facility] [employer] Phone: Aortic Root 2.2 cm [employer] Phone: Aortic Sinus Valsalva 3.3 cm [employer] Phone: Aortic Sinus Valsalva Index 1.29 cm/m2 [employer] Phone: Ascending Aorta 3.5 cm [facility] [employer] Phone: Ascending Aorta Index 1.37 cm/m2 [employer] Phone: AV Cusp Mmode 1.8 cm [facility] [employer] Phone: AV Mean Gradient 3 mmHg [facility] [employer] Work Phone: AV Mean Velocity 0.8 m/s Grant [employer]heed [employer] Work Phone: AV Peak Gradient 6 mmHg Grant rasheed [employer] Work Phone: AV Peak Velocity 1.2 m/s Grant Melo [email or web address] Phone: AV Velocity Ratio 0.75 Grant [employer] Phone: AV VTI 18.4 cm [employer] Work Phone: Body surface area Derived from formula 2.67 m2 [employer] Phone: E/E' Lateral 4.69 [employer] Phone: EF BP 55 % 55 - 100 % [employer] Phone: Est. RA Pressure 3 mmHg Grant [employer] Phone: Fractional Shortening 2D 28 % 28 - 44 % [employer] Work Phone: Interpretation and review of laboratory results Abnormal [employer] Work Phone: IVSd 1.3 cm Abnormal 0.6 - 1.0 cm [employer] Phone: LA Area 2C 26.6 cm2 [employer] Phone: LA Area 4C 25.0 cm2 [employer] Phone: LA Major Adrian 7.3 cm [employer] Work Phone: LA Minor Adrian 6.9 cm [employer] Work Phone: LA Volume BP 78 mL Abnormal 18 - 58 mL [employer] Phone: LA Volume Index BP 30 ml/m2 16 - 34 ml/m2 [employer] Phone: LA Volume Index MOD A2C 33 ml/m2 16 - 34 ml/m2 [employer] Work Phone: LA Volume Index MOD A4C 27 ml/m2 16 - 34 ml/m2 [employer] Work Phone: LA Volume MOD A2C 84 mL Abnormal 18 - 58 mL Bon [employer] Work Phone: LA Volume MOD A4C 69 mL Abnormal 18 - 58 mL [employer] Phone: LV E' Lateral Velocity 11.30 cm/s [employer] Work Phone: LV EDV A2C 74 mL [employer] Work Phone: LV EDV A4C 102 mL [employer] Work Phone: LV EDV Index A2C 29 mL/m2 [employer] Work Phone: LV EDV Index A4C 40 mL/m2 [employer] Work Phone: LV Ejection Fraction A2C 57 % [employer] Work Phone: LV Ejection Fraction A4C 52 % [employer] Work Phone: LV ESV A2C 32 mL [employer] Phone: LV ESV A4C 49 mL [employer] Phone: LV ESV Index A2C 13 mL/m2 [employer] Work Phone: LV ESV Index A4C 19 mL/m2 [employer] Work Phone: LV Mass 2D 279.8 g Abnormal 88 - 224 g [employer] Work Phone: LV Mass 2D Index 109.3 g/m2 49 - 115 g/m2 Bon S светлана [employer] Work Phone: LV RWT Ratio 0.44 [employer] Phone: LVIDd 5.4 cm 4.2 - 5.9 cm [employer] Work Phone: LVIDd Index 2.11 cm/m2 [employer] Phone: LVIDs 3.9 cm [facility] [employer] Phone: LVIDs Index 1.52 cm/m2 [employer] Phone: LVOT Mean Gradient 2 mmHg Bon [employer] Work Phone: LVOT Peak Gradient 3 mmHg Bon Se [employer] Work Phone: LVOT Peak Velocity 0.9 m/s Bon [employer] Work Phone: LVOT VTI 14.4 cm [employer] Phone: LVOT:AV VTI Index 0.78 Bon [employer] Phone: LVPWd 1.2 cm Abnormal 0.6 - 1.0 cm [employer] Phone: MV E Velocity 0.53 m/s [employer] Phone: MV E Wave Deceleration Time 156.0 ms [employer] Phone: PV Max Velocity 1.0 m/s Bon [employer] Phone: PV Peak Gradient 4 mmHg Bon [employer] Phone: RVSP 22 mmHg [employer] Phone: Sinotubular Junction 2.3 cm [facility] [employer] Phone: TR Max Velocity 2.17 m/s Bon [employer] Phone: TR Peak Gradient 19 mmHg Bon [employer] Phone: Bon [employer] Phone: Cardiac echo study Procedure on 02-05-2024 [...] Image quality: adequate. No contrast was given. [facility] Radiology Study observation (narrative) [facility] Coding Summaryon 10-25-2021 Coding Summary HTMLBase 64 YqyzlhgxRHg5oTt+PGhl YWQ+NU2ZPEVvR51jwEMu dR9FM7pXFY3LRFDQNMOW XU0OXW7wiMD5MYmxC8Bj biAv VyotfSQsLC44QHg0LYH0 fViiPPdfbP3vfWOzF7e9 TuVbSJ11qJ96ZRafGQKg OhG7VgBlxfyimNUs T2jvWbZypFXtBex+PHRh YmxlIHdpZHRoPScxMDAl HoSenYydIR0yEh3hYGAn LWNvbGxhcHNlOiBj h6rgJHPrAJicDB7kiAcw V8GnsHU3XYLzf4i5Qt95 dHI+ZNTfOGY5qQqnQKki l171EhOqh7vtXYX7 vXClJVpsYFO3S77ip7D7 ULPoAHLcQTA7zCZ0tL5x xLyfsjcuY3JfbKXaOxD3 NHG6iIJvuR3xjBmn gfwhxD0cCax+Y68ZFV6G EIVYUH1JYmx1T2TuKfvq dHI+IQ03TUTnNI30xLZt qABki8hbwRg0NzZc OIMeZTU6nGepZNdgd0Al MGQbO09viNSuj7M3VLYp cZuifEKoHgIqcLF5cU8r LLbpnafza4yghsqq Itbiw9azsf93wU25Y55c JLbkKNOoEWN9BIAkGCZc mCpyds2djU0uGj5+IDxj g8tja0kwxZm3VoLs AFImruAddDaxXBL6l9Ov Az62K6KduDzga9ZiTqc3 lm37yUXvs1E1rWU0NTgm GOVchF3qLAawSrV0 OJFmHrXjgD66gCElGYpf Hj9pmTlpoNxcYL9qZOAp vthaAYTfjY7jAJKznPCs mOwrPG2rPRIneorf q039FnAcPLS6GEKcsGDd J3YgzV7lPdXjVFBpSJTb S4JqwTWtSLvzQ506YZuh FfC2TJPxjkCgE7Bg YSYqdAueJmC7c6E5In7R e1PborfkZVR6BPfsFDK4 CeAdUePjIwO1S8SeOct8 PZIriEcyLM6eB2Po KEOivfqmftybyDN9TAUq OAXjrC34xKFhYJjjQk1u k8B6f399KBMuISIdmW23 Rn4wmCygQJUklZUV yI9vzqjnw4jofkepUpUx MHTqQVv8ESn4BMApiLau GhEdREE2NvQ1CIR6rQVq hA3ofKuhgkcpwB0f Oyc+O74tnU7wVZD3MLT7 cgqfZZTlfwEoKY62DL95 T0IvXbyhqNNcjII+PGRp neHhhBzxFS8rYvZb h3qpk8VgHJkmG0DmDBVf BVgvLjz5GWImZYC7xDW2 aI1mDJJrYMhoc4T9wIQ7 E3PnwaJvuw8ju0sv CSVdRXqtP52xeHVgz6T2 JOEekDB6CZCahUawFkBp vA37Fgj+AODyoWpki7In Eblba0abo4aghWn6 IjMwJSIgdmFsaWduPSJ0 i6PpWe08S30rCWaoYYVl ILEpIMVmLMBvxCnbhx3p gA5fUz9+PGNvbCB3 yCU9vF5cOUXjWuY1ELtp A695UqGngYHoMhhhj8mh s2zkrTv5NiKuAGIcpoZz gLfaMJW6n2ZvZb24 A16zECqyXWUpICTbPZJc BXYlqCttlv4uzS6fEb4+ MA4cg1zido53xE37nOJ+ AEEeAFE4cUzgUJbf JVItoI3nHQuuOhY8FPUs SjTrkQ11cUMsFPnhWd2k lNadgStvEP0kBHNjswcu r173LeEuc4xsIVRr pJPeDMgkBVJ3H48uw2X5 FPHnCVSvBAF9nIM8lR3p bGlnbjogbGVmdDsgdmVy bWzeYTnlZEraF209 IHRvcDsnPlBhdGllbnQg OwSvCGo2C9UoCyy0ZDFk wIenUW4ciBMxSCqtMe7b bEfugZiqEU3aGHKj aqxkj914UgSxj0wkWGPu bRZzCQcmPCD6B35kw9P7 XEVdKDSbIJG3xAC7gP4x bGlnbjogbGVmdDsg pcYewJksDVelQQgiC209 IHRvcDsnPkJpcnRoIERh jGQ8ND40IJ41gLGra4W8 yEP0M4BfTXSrooek dafvqKF9DTKpPPAyyF08 Na7nsKuuMu2yPHNlXND3 NNGcrEPwB8MugS1wAwJh SNToTSKpA4NflRAa IVprV248NQpaBlQ4KNFi haCfT6EtJRQxiRpnRfK9 d7H9An9GM4N3JD72DO60 oWQyu2S5dJP7A1Ft ZUOfjzblimdxnME3KAQz PQPlwE16Dg6zfUrhQx7k UUBsSSB3BQGbfGDdR4Ln lK3uHiHuOOGpPWJg P8HlxUJnEOmnD329SCxz JpW5ZSGgiwCxT5OoCJEo vPkeAdA5s7K9Ft9AWBq4 XY61DP56cEQwg7K1 jUE1B7HyAWHpqhyhgmbh lGI8TKTyPQCyeV27Jy5z aJzxVo9gVWSaFTW5SXEw iMAjI9RpzM6lNrBl OGHuHZEsZ0VmoJAbUBwz Z169RJofRjX7CHCiziLi V2YiHBCpwWnpNpL7u7G7 Pj4ZNMLfGB73YLD9 mCM0HA00YD00J0NfYszh dGFibGU+PHRhYmxlIHdp ZHRoPScxMDAlJyBzdHls DQ7cDn9dHTGeOPAf sOsbwLDgTwQlo8ozCHBc HMqcDR6bzQbrJ3MumMX5 DCJyz8a8Nx82Z34bO4Qy dXA+TZOiuDI7vQJ4 fW0kHsStBuF8CLosA104 QhBzwREkXakat8xld2pm lCi7QmP3UVIugxObdXxb BIU5g9JsNa65A84d IHdpZHRoPSIxNSUiIHZh vNqdgw9ysY3aQt6+PGNv dVW9wVP1rU1fAuKuQmG9 GYtlT164YhFkmTJr Eises0dxw8byqBj8BnHm YJCnxwQkqHwdCVC5b2Rd Uj10S2AgvUfbu8WfRzd0 ag92cHMzh9P4yKM6 A2KkJEAwyjagkXZihEaa CY6jCEDyldsbSHIswM4k KLRzI7z0JsYsXkF3DYdz K7ExunP8CFFsrLWb YPcjFIB0V94hv5S1PBRc PAVuIHB8fYE9eY9ifTvg bjogbGVmdDsgdmVydGlj TDchOYkaD861XKKt qVicHCMsmD7tZIBjjFYw mVetIV5tZEMobootSnnQ QkVSTElORywgTEFXUkVO Q8YjUHbfrAP+PHRk DFI8nVhwJQbuYMRcoT9k QBFsI5t5MoGmLpF2MDyo A3DmBSPecobxDa12gJ4u YyXrEoD9VPueY9Yq pfF6FURgnTZaGOcjHFK3 E79ix7R3CYHuXWYeTFD1 kSI9cN9vqVhywzdjjYNr dDsgdmVydGljYWwt ERwiB314RHMfeUxmNuW4 IsBzMmE4JSz3X2ZcLqf5 NELktJxcGS6fvSAxFYzg Vm0uuZqpvVukFW2o YACxgqudLVUptE0xPUSu wAGrgFccWY3uHAPgdyac b340ArRqQGS3UUMxsJIf L3RqhN6kCrVuABNc UYPbF8HanGTwSRrmL738 VYozKqH2SUZyltWdR2Fp BNFixOgkDdK9t3M8Sa37 MyBZZWFyczwvdGQ+ UUAhIYZ5iVypLLuvIEFl oF7pJKTgK0m7JnKlLbN9 PTznC0DoXVOytfcbTy45 fY4xMeYfLkE0ISkf W7CpbnA9WXYvrOIjNQad FSZ5K60eo2Z3LXNoDVWl DMN4vVA3oN7bpXtrpdcr bGVmdDsgdmVydGlj SNjaTCcqX804XKZzaXkm Ti9UTXD3K5UsHuj3MRUp wUwsBC0ocREbOYjmKs1a kZijoQnwQC8oRUXj qdorGMLbdB9aNHHmgNWa rFcvEY7kHQJfmsqjg146 WnIqRPD5MSQqdCQiU3Mx rW2qBpJqXUIoSLZr G1ZekZPpMUewN010OIlm GwX1QIIzalIrC0ErHKCd fLmyFqQ4e7O6Nq5ECTut dGQ+KU39ya86G7Id QdktNsz4XQSsQBD4uAJ7 zD1rRQKqKKfwd4I8mKH8 E3WeiwWzpn9de0wzUGSn ATumH30ryFBtl9O8 GGLowOT2SOOalNzlLtMn qI46Xwi+PUQkcPclr7Uc Xhskp4arb8esgCv2HhUl JSIgdmFsaWduPSJ0 s6AfYj71S55fXJluPPNa VXStYELbJDSbnCweeu6c iM0cRk1+TZKvjFJ9pKC0 dK7hYvNoOkF5XKmi G088CjFfgXEtKlfno4rq j6tkqTn9KjFjUZTprcPs gStvSPB2g8RdKv13Y1Da cBjmh0OhRkg3yu97 gUOjx3I8rLV1A8NtZFPy favocVAdhRtnPB3mPEBl lxqjHIKwuD5qGATeQ0u9 AzBoCrW7UJxpO6Tn ghR8IAUcnTNeUQDxaWXB uO6bvbskg5rzhewwEjSt LRZrIZp5DYt5PRGbzJzw BcCmBOI8HeL4FZX8 zNSnwO7sgMunkcaqcR4m Oyc+HVj0j5qezOWcZT0q nAT2CZ86EX75fJMvg1B0 yQQ8C3UuWQZaqztz lyehkCF4YCWkNGJqoL31 Dw1dsAxiSv7cWKDrIOV1 RPIoyCQrC1WuwD4rJgYw IQYtHELkA3HfeRFu GKvsX543MNfnKlV8JVWa tqSrJ1KgJMWbuCqrImH5 q9U4Wa6VXZ92IS95UK17 tDQic4B8mCS9R7Ld SVDrshdlvwtvqGD7XCXq EAEvkW45Zl1joGdjXd3f IQNnDKV9VMWiuFAxB4Nb rK4hJxYaLSCfHBQo K0EsoPYnEIwgT983GNrx KyA2DSAdejOnU1BeQCEo xTjbVkE3e6C3Yy3MRm13 GA48TY41sVTmq7E4 kFR4Z8EwECGbrszvghii cYI4OUViHGSbjQ69Ib8f uMcyEb4lHQFyWTH4OGIk pOWsS1RbnI2cPhDq LQUeYMOoK5EpkFQfUIfd L869MDxfNaZ8RCQcyqQu L1DxPMApwXrfCyZ7k5T2 Bh2OLHzfjne7J0Lu PjwvdHI+MU82LRBbUB98 kDEndUHaz5nsuSa1VzPk QYHcTRZ6rIfbJUqdf9Mc LVVwF47wwIHfg9C3 IGN (more content not included)... [facility] Coding Summaryon 10-04-2021 Coding Summary [employer]Base 64 LkmzbtknWVo6tYh+PGhl YWQ+ML8IANRdC55btGJv lJ7KI9aOJH8TNHJXCTPO VQ5LVG7bwQB3KWneE0Ka biAv JtjbnNRyBG06MEm4NFU1 wGweQEdveU9biTVmZ1y9 OfJgQV41jH25TTbdQITo McS5QzGysktpaWCb X1wmMzKpwZUbKqk+PHRh YmxlIHdpZHRoPScxMDAl AvCgrSvmGZ8zDo7iFIZk LWNvbGxhcHNlOiBj g2wxFIKmCJwhTK4lxLzy R0IcdPJ9XDZit6n1Re99 dHI+RFUmSIX6wNcrDEti e212UoFfl1hfPUT7 tIHdOHwkPGH5O51ld1C5 WJDsVYAdFNN3qHA2aB1n wKnzydojY0VgnANpGaN0 AOF5uIInhI2boNvi pkftaI8wCwy+A83LZC5R DQFVJX3OVum3U8MeFums dHI+DQ58AYZsLU20sSAc wEUgl5txfWs0ShOe WPZvCRK2yOgcGTeum5Az FWFzU48qjHEdj7N2QOWz vKrmwUYhBzHwkAU0gN9r HBoucdoiq2clnenm Kqxyo9pyvc42rS14G54m QNajZQHfTRV5THZeFJAu vDjejr8ymP8qNm8+IDxj g9fjq1whxDw1EhHd CIPfvgAlmFfmVRQ0w1Zi Gn51X0XmbZvth8HsZxu9 gh00nQOki5Y4aWD0POmg ZDOuxL8lMAaaJxW4 YVJqEuDrfF71fCRmHXlp Gj2jpKggvNcuPX3dGMLd upboSTWtgE0uAGBngJTn dYrvVQ5mDLZktmpc c504NwZpBWF6HQQulRDm R8HdoH4cElCtAIGmKSQu Z1VwtPVaVOhwG236GAyo YyN7RDTogoPwK3Ys XCCejNheUrC8r8R3Un5Q h0NmeehnTRB9WBpwUKV5 RsWjIdRrEyS0P8ZwCop6 DWKasUwuQN8kE7Sn CGIoojqitrfqqMZ2OOOo TUZbtK48rWWjAJtcBd4v u5D3d606YOGaTIQilA39 Zf7eoRnmYALqkNXH zN5jhomtn3hhvlwcTmUp UCMeHRs2FDe6PBDklJbn OqXqFPP6MnN3XUD4oYIy tZ2ooLkaolkltS1z Oyc+K80xrE0pCGK8QHK1 vamrAPPbzoChPS01UB33 I3LqEiozyHXkxMJ+PGRp vsFsjNmpXW5uQyGa u1rao7EzEEwhV6MfKWAg NWhyXtp1ERBnQDM7jOW6 aP1qJAGhDVmay9Y8tAV2 R0PaorNefq8rv8ng KSVrXUzxI75lwBQtv3G4 BPGvuFR3NJNkqRtdMsZz kN92Sbe+GJOqqZbzy3Zo Ncarq9gzn6izsUz1 IjMwJSIgdmFsaWduPSJ0 n6FdJo14I79qVKjaZYZk ZLYlFWPpLTHnjKglpl8m eY4pPt5+PGNvbCB3 fHS2rQ1cGRPiCnU9BYbb Z840TiKuuSAwMcwfr7ad o1hqrMv7EzQfJOCmieOu wIcxLJV4u4BgWs05 Y51zVAhwXPVvLAXuTQTb GITtnDyenk1wqM3vYi7+ AJ3hw1kxnw60bY16xKL+ XLOxFDN2wWreFJsa NOTysW0wEUkwOjA2MKRg FtMdjY00dJTvDIciHe8t vFcbeGuyQD3nDATwuvdk s438DsRdd4akIIAj fBPqLTccCXT0M30dd8P4 MLPoQMGyTCE3iWZ3vZ0p bGlnbjogbGVmdDsgdmVy ePxoXIczDCvgQ907 IHRvcDsnPlBhdGllbnQg RuYfCEt3B9CxEsa8PAAn fVwvCJ7bfOOfVRjlEn9n oRckvYsvJK7iJLYu kmewg032VnAji3iePVMf kPChKEenUJX9A96fh6Z1 ENQoWDJwRWT2fFP8dD5i bGlnbjogbGVmdDsg twRxsNefLGifHOmlW884 IHRvcDsnPkJpcnRoIERh iIR8MS60QR62nMDnn1L6 bKG8J4XeEZZfpbvl pmwdkXE2WUSmOOEmqI76 Uo1uuEshOx3jJMDmKME2 VQWjaYTsD4EuvD1nUnLo NINcCNCgB6XniOFj IWszT101LIztXuI9KKVb byHjJ2MmGGJngEzbChF4 v6I6Xb9CS6Z8KY03GA04 rKUfg0V4lTR5V7Fm SZUdifhfhliicMP8KXLc WWFpfN05Mr2ftIydDz6v UAJrRYG8TKQneBYwX5Mx bO4xViPjBMRrQTOi X2RuzNRsMVmyF452PRsq LgV4VJQcynWkN0PlKJHc uNtnHuX9x3K7Lf4VJRu1 FP35OS38vBGyp4F6 lEN7C5AsHILapbsgdkee zKI7TTZrTNWaaO31Ip1n uUcdOg1pJLPmXER5XCOv vQFrE5UuqV8wNsWi BNGpZTXwA5QnlROvWUqg M351UEyhIcW3PPKqkpNc A4TtBUGsrJzgAaJ7u1D9 Lb8PPJBpXS69AQK8 mQR2CJ51NO70A7NcNqvx dGFibGU+PHRhYmxlIHdp ZHRoPScxMDAlJyBzdHls QN4hMz3jKMObJWQa xPftoCWfAxXvl8guMUNl YWxhZW3diLxtA9ErxMR4 HNUql3g2Dj58I89kF7Tu dXA+AUWwlQH8pIB1 eY1iQjDuVyD5OMdxR134 ZiEjkITvOfwcn5hqd3vs bHi7JbJ4DXXoffLidGem YOP5t3ReTo57R58u IHdpZHRoPSIxNSUiIHZh bErtqz3weQ9wTg4+PGNv wHO1fHT7uO3vFdQhJjU2 BVsqO002PvPjaYDk Jknsf3ylq1tmhJx2XsNt AJVnkuRzbMgdKGS3u0Vr Rn26A2BvaFdnk5TrOzn8 he46cCHqj9Z9tVK0 T4YyYETtuqokzBBbrJta XL8zZBVlldtuTQZntH5v YLGgZ2i9DaRuHtS7CKkx H8YxdlJ4TDJepUTn RDgkCOB3A59gv4V9OGVq SGRdVWB7pFC4pJ6cpDwr bjogbGVmdDsgdmVydGlj XQwxGOckL760XMHo nMhqCUAwvG4dXLTssXZu gHryTX4xXUDaezjfLkxK QkVSTElORywgTEFXUkVO U8LqFLrujVG+PHRk NXT1lQmiRYplCCVpeQ4p TRBgC3w8MpGdIbZ5PUew W7QtQIFpcosvFz64yU7h XeDwTmN6RAmlE4Ct vrK1VSXxnCRdEKdhYYU0 F23jl5F5EGQmYXQiIQU1 kYQ0aS3spGssxzzaqQRi dDsgdmVydGljYWwt BOqtA742XIAjqZmtHjA0 WuSrBmA1DQk9F2VvWtb3 KKJqrYrkIE9acCFaYWmd My9wfVpafMalYC3q RNRkzjerQXMffU8mTGFy xSTsbDcmWB9vGAPnesas x200ElPiMXR4UOOraIJt M3OqqT6fYuTbZENm WYNyU8SmoSPlGAfjZ050 CDugYsN4COUfpmJrV1Tg IFLwvJbuOkN1c0D8Ay97 MyBZZWFyczwvdGQ+ HQGrLJV7xJbsUGswVRMo xL7eNYJxY6t8CpTaPkR2 UKbpF2KqSHHybgvhHk30 tL5lBeApSeL9LShq B3GnqhV3PZXwnSKsJPjq UYU1G52ni5J7OKScQDLo IEB8mNL8gL7lwBednnwp bGVmdDsgdmVydGlj NOtmPZrwS041VQSxoBkv Ij9HBKR7W1OoKgq3UYIl eHayRQ2zzPUqRUjcPs9l qOngaShvUY0nOKZr udknROPcgM1rPGSsdHKn bZewNS5pUVEtemyzo233 YwNrHSB7TYTwzAGeV2Nq wZ4sQvLjNZZiQKEh V8VgjZFqRYtiH608WNdo XeK6ZVJuzvKdV2UrJJEs qZpoWfG3z0Q6Sr3TWfUn cnZhdGlvbjwvdGQ+ CG85lq44T6NnNehzYgh0 HSGfMAQ8bFN0sY4gYQEs WIecn9M2mQD2A9UqubXz hk6nv3ikEJIpVLkz B76scVRaz7B3MNElgMB5 TQNhhErnAiTarU42Elk+ YBXbdWspj8QkVhdlo5un j3vfaKn2XkMkFUXg jrOgbDegCDZ0b6OjHr55 N37bMYnoOBEmGUGsXXLw BCJtgFsdso0hsK6pBk4+ NUEllVD0qWK1zH5q BvMdKpA8XJhcV789HpUn uNJrXxogt0xgc3gmnXf7 IjIwJSIgdmFsaWduPSJ0 a1ZbXi27L3FxbAfr y0EyTqn6ny11hFFnh7I7 xVT1P8CgOKIkwzeqtBZe yDdxEG0kGEAwazxzLWQr iI8zZQQnF8a7RyAr RhD2GEkjO1GfzeR0LBAq jAKyAMDhiXZNiL2mtcde r2oyyjyyCiKaBTPgXOc8 TDy1NYIptPizLaLb KCH9AiE0KMZ1eESfmH8t zUhxdhrbwJ2pRny+UGh5 m5slqXLdEJ3pzIQ0QA51 SB68tUQxm6J7mBS8 P9NwNFDkarajsshcxMU9 WARwKZMruT34Dk8ytZyd Dt6hPZNrXPY9OUBwqFRb O8QxgX3hRwEuUSWa JSLjR1QvnVZjEVofD694 KCdjJcD7TJIrdxDyZ8Lm JANhhGgdItV5i7Y2Vt1H QS28JM33SX44oFIm o9M0jIA2E7KjFEJpigfl vqdnkRS2YZQwEEPxvS75 Dx9nuJjiIe8rRKGrLWM9 AXTrzSDmU3NjrN4e QzNqIZOsFIOwS4NotTLc ZUhfN789RUkuRyX9WMAi dxPtD2LoYDYsiXlbWmI7 i9O3Io6FCo05TB75 VD45wVPby8F5gJP4Z1Yh WVRoqeveqfwkqXH3ZJCy VKShpC80Td5sqJlyMl0f BNKgWZR8SDAywWNv U1McyJ3oRfNzSHIlGHCq W1WneLRfXPbtH672EUqr BdM7KIZgxkKcT1KeTKQp vEtaIxC4e9J5Ls9C BAjfcfr6X4SfRhmhcVD+ NF13APPsOP19rNJzsDHr l5lcsEo0JdLlWQXxUZE2 yCjfSKwsx4YzIIRk Y29 (more content not included)... [facility] Consent Formson 09-23-2021 Consent Forms [id number] [facility]-20-2021 Consent Forms [id number] [facility] 09-20-2021 MAGR Postoperative Record MAGR Phase II Record Summary Primary Physician: DAVID AWAD DO Finalized Date/Time: 09/20/21 10:05:40 Pt. Name: SINGHZAINA D.O.B./Sex: 1950 MALE Med Rec #: [id number] Physician: DAVID AWAD DO Financial #: [id number] Pt. Type: O Room/Bed: [facility] Admit/Disch: 09/17/21 08:03:00 - 09/18/21 12:10:00 [...] Signed By: Vianca Celaya RN 09/20/21 10:05 [facility] Outside Recordson 09-20-2021 Outside Records [id number] [facility] Provider Orderson 09-20-2021 Provider Orders [id number] [facility] Orders [id number] [facility] Telemetry Stripson 2 Telemetry Strips [id number] [facility] Electronic Messagingon 09-19 Electronic Messaging --- --- --- --- --- --- --- --- --- From: Ej (Jim)Ej To: ZAINA WINTERS Sent: 09/19/21 04:18:10 AM EDT Subject: Discharge Summary Ready to View A summary regarding your recent visit is available in the Documents section of your Health Record. Normal [facility] .Auto Diff 1on 09-18-2021 Auto Stearns % 9 % Normal 1-12 [facility] Comment on above: Performed By: #### 1 [id number], [id number], [id number] #### [facility] (DEFAULT) [address] [place] [address] Baso Abs# 0.0 x10 Normal 0.0-0.2 [facility] Comment on above: Performed By: #### 1 [id number], [id number], [id number] #### [facility] (DEFAULT) [address] [place] [address] Basophils/100 WBC (Bld) 0.0 % Low 0.2-2.0 [facility] Comment on above: Performed By: #### 1 [id number], [id number], [id number] #### [facility] (DEFAULT) [address] [place] [address] Eos Abs# 0.0 x10 Normal 0.0-0.4 [facility] Comment on above: Performed By: #### 1 [id number], [id number], [id number] #### [facility] (DEFAULT) [address] [place] [address] 13422 Eosinophils/100 WBC (Bld) 0.0 % Low 0.9-4.0 [facility] Comment on above: Performed By: #### 1 [id number], [id number], [id number] #### [facility] (DEFAULT) [address] [place] [address] 15753 Lymph Abs# 1.2 x10 Low 1.3-2.9 [facility] Comment on above: Performed By: #### 1 [id number], [id number], [id number] #### [facility] (DEFAULT) [address] [place] [address] 62635 Lymphocytes/100 WBC (Bld) 9 % Low 14-48 [facility] Comment on above: Performed By: #### 1 [id number], [id number], [id number] #### [facility] (DEFAULT) [address] [place] [address] Stearns Abs# 1.3 x10 High 0.0-0.8 [facility] Comment on above: Performed By: #### 1 [id number], [id number], [id number] #### [facility] (DEFAULT) [address] [place] [address] Neut Abs# 11.6 x10 High 1.5-9.2 [facility] Comment on above: Performed By: #### 1 [id number], [id number], [id number] #### [facility] (DEFAULT) [address] [place] [address] 38273 Neutrophils/100 WBC (Bld) 82 % Normal 44-88 [facility] Comment on above: Performed By: #### 1 [id number], [id number], [id number] #### [facility] (DEFAULT) [address] [place] [address] CBC w/ Auto Diffon 2 Erythrocyte distribution width (RBC) [Ratio] 14.0 % Normal 11.5-15.0 [facility] Comment on above: Performed By: #### 1 [id number], [id number], 2984054 #### [facility] (DEFAULT) [address] [place] [address] 93362 Hematocrit (Bld) [Volume fraction] 36.8 % Normal 34.8-51.9 [facility] Comment on above: Performed By: #### 1 [id number], [id number], 8569069 #### [facility] (DEFAULT) [address] [place] [address] 70031 Hemoglobin (Bld) [Mass/Vol] 11.9 g/dL Normal 11.8-17.7 [facility] Comment on above: Performed By: #### 1 [id number], [id number], [id number] #### [facility] (DEFAULT) [address] [place] [address] 66095 Instr WBC 14.2 x10 Invalid Interpretation Code [facility] Comment on above: Performed By: #### 1 [id number], [id number], [id number] #### [facility] (DEFAULT) [address] [place] [address] 89594 Man Diff? Auto Normal [facility] Comment on above: Performed By: #### 1 [id number], [id number], 9814807 #### [facility] (DEFAULT) [address] [place] [address] 94215 MCH (RBC) [Entitic mass] 30 pg Normal 24-34 [facility] Comment on above: Performed By: #### 1 [id number], [id number], 2930244 #### [facility] (DEFAULT) [address] [place] [address] 62536 MCHC (RBC) [Mass/Vol] 32 g/dL Normal 26-37 [facility] Comment on above: Performed By: #### 1 [id number], [id number], 2488196 #### [facility] (DEFAULT) [address] [place] [address] 13999 MCV (RBC) [Entitic vol] 94 fL Normal 81-100 [facility] Comment on above: Performed By: #### 1 [id number], [id number], 3065295 #### [facility] (DEFAULT) [address] [place] [address] 18488 Platelet 181 x10 Normal 138-427 [facility] Comment on above: Performed By: #### 1 [id number], [id number], 3665424 #### [facility] (DEFAULT) [address] [place] [address] 37110 Platelet mean volume (Bld) [Entitic vol] 10.4 fL High 6.3-10.2 [facility] Comment on above: Performed By: #### 1 [id number], [id number], 6553404 #### [facility] (DEFAULT) [address] [place] [address] RBC 3.92 x10 Normal 3.70-5.30 [facility] Comment on above: Performed By: #### 1 [id number], [id number], 7573954 #### [facility] (DEFAULT) [address] [place] [address] WBC 14.2 x10 High 3.5-10.5 [facility] Comment on above: Performed By: #### 1 [id number], [id number], 4596009 #### [facility] (DEFAULT) [address] [place] [address] 67704 Electrolyte Panel Standardon 09-18-2021 Anion gap [Moles/Vol] 12.0 mmol/L Normal 5.0-19.0 [facility] Comment on above: Performed By: #### 1 [id number], [id number], 5174837 #### [facility] (DEFAULT) [address] [place] [address] 32229 Chloride [Moles/Vol] 98 mmol/L Low 101-111 [facility] Comment on above: Performed By: #### 1 5754460, [id number], 3547410 #### [facility] (DEFAULT) [address] [place] [address] 14710 CO2 [Moles/Vol] 28 mmol/L Normal 21-32 [facility] Comment on above: Performed By: #### 1 [id number], [id number], 2310784 #### [facility] (DEFAULT) [address] [place] [address] 32593 Potassium [Moles/Vol] 3.8 mmol/L Normal 3.6-5.1 [facility] Comment on above: Performed By: #### 1 [id number], [id number], 7046428 #### [facility] (DEFAULT) [address] [place] [address] Sodium [Moles/Vol] 134.0 mmol/L Low 136.0-144.0 [facility] Comment on above: Performed By: #### 1 [id number], [id number], 0095964 #### [facility] (DEFAULT) [address] [place] [address] 46592 Inpatient Patient Summaryon 09-18-2021 Inpatient Patient Summary [address] [address] Patient Discharge Instructions Name: ZAINA WINTERS : 1950 Patient Address: [address] [place] [address] Primary Care Provider: Name: Jeannine Hurley After you are discharged if you find you have any questions, please, call [phone] ext [phone] to speak to a nurse. Discharge Diagnosis: Acute pain of right knee Prescription Information: If you have been given a prescription for narcotics, seek immediate medical attention if you have any difficulty breathing or any sudden status changes such as confusion and sleepiness. If you or anyone you know is experiencing suicidal thoughts, mental health, alcohol and/or drug addiction problems; contact the [facility] 05/09 Crisis Hotline -Text 4HWIR mr 958984. If you received any narcotics, sedation, or [...] business decisions or sign any legal documents [facility] would like to thank you for allowing us to assist you with your healthcare needs. The following includes patient education materials and information regarding your injury/illness. ZAINA WINTERS has been given the following list of follow-up instructions, prescriptions, and patient education materials: Follow-up Instructions With: Address: When: Trenton Redd [address] [place] [address], [address] [place] [address] [facility] (1) 10/01/2021 11:00 AM Medications During the [...] to tolerance (more content not included)... Normal [facility] Pharmacy Noteon 09-18-2021 Pharmacy Note I [...] [Verified on: 09/18/2021 10:36 EDT] Emiliano Montgomery [facility] Progress Note - Nurseon 08-0 Progress Note - Nurse Discharged to home. Prescriptions and instructions reviewed with and given to pt. He verbalized understanding. Taken to awaiting vehicle via wheelchair. All belongings sent with pt. [Electronically Signed on: 09/29/2021 14:49 EDT] Mildred David RN [Verified on: 09/29/2021 14:49 EDT] Mildred David RN [facility] Progress Note - Nurse POC discussed with pt. Educated on safety and ADL care once discharge home. He verbalized understanding [Electronically Signed on: 09/29/2021 14:49 EDT] Mildred David RN [Verified on: 09/29/2021 14:49 EDT] Mildred David RN [facility] Anesthesia Noteon 09-17-2021 Anesthesia Note Patient: ZAINA WINTERS Age: 70 years Sex: MALE : 1950 Associated Diagnoses: None Author: Eugene Castaneda MD Postoperative Information Post Operative Note: Operative Day. Anesthetic utilized: General. 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 Aftercare following left knee joint replacement surgery / SNOMED CT 743767711 / Confirmed Resolved: COVID-19 / SNOMED CT 2984297034 Resolved: Diabetes / SNOMED CT 784278601 Physical Examination VS/Measurements Vital Signs (last 24 [...] on: 09/17/2021 14:12 EDT] Eugene Castaneda MD [facility] Anesthesia Note Patient: ZAINA WINTERS Age: [...] All Problems Atrial fibrillation / SNOMED CT 11833805 / Confirmed FH: hypertension / SNOMED CT 381170251 / Confirmed History of post-polio syndrome / SNOMED CT 158263214 / Confirmed Aftercare following left knee joint replacement surgery / SNOMED CT 502662893 / Confirmed Resolved: COVID-19 / SNOMED CT 7805339909 Resolved: Diabetes / SNOMED CT 288652519 Histories Family History: CA - Cancer of colon Grandparent Heart attack Mother Grandparent Tobacco user Mother Father Brother Procedure history: Arthroplasty of knee using cement ([id number]) on 03/02/2021 at 70 Years. Back ([id number]). Comments: 02/04/2021 10:08 Oliva Van RN surgery [...] Oriented. Review / Management Laboratory Results Plan [employer]hesi[employer]#(A SA) physical status classification: Class III. Anesthetic Preoperative Plan Anesthesia: General. , Regional adductor canal block for post op pain control per surgeon request. Anesthetic plan, risks, benefits, and alternatives discussed with the patient and/or family. Patient verbalized understanding. [Electronically Signed on: 09/17/2021 11:19 EDT] Eugene Castaneda MD [Verified on: 09/17/2021 11:19 EDT] Eugene Castaneda MD [facility] MAGR Intraoperative Recordon 09-17-2021 MAGR Intraoperative Record MAGR Intra-Op Record Summary Primary Physician: DAVID AWAD DO Finalized Date/Time: 09/17/21 14:17:42 Pt. Name: ZAINA WINTERS/Sex: 1950 MALE Med Rec #: [id number] Physician: DAVID AWAD DO Financial #: [id number] Pt. Type: D Room/Bed: [facility] Admit/Disch: 09/17/21 08:03:00 - Institution: Case [...] Role Performed Surgeon - Primary Anesthesiologist of Sustainability Project Coordinator Record Time In 09/17/21 10:35:00 09/17/21 10:17:00 [...] CST Meyer PA-C, Matthew J Role Performed Asphalt Distributor Operator Scrub Personnel Physican Formula Bottler Time In 09/17/21 10:17:00 09/17/21 10:17:00 09/17/21 [...] By Zhanna Urrutia RN Scrub 10% Povidone-Iodine [place] Prep Area (more content not included)... [facility] MAGR Intraoperative Record MAGR Intra-Op Record Summary Primary Physician: Finalized Date/Time: 09/17/21 10:39:41 Pt. Name: ZAINA WINTERS Carmen /Sex: 1950 MALE Med Rec #: [id number] Physician: DAVID AWAD DO Financial #: [id number] Pt. Type: D Room/Bed: [facility] Admit/Disch: 09/17/21 08:03:00 - Institution: Case [...] RN, Brayan Altamirano Role Performed Anesthesiologist of Sustainability Project Coordinator Sustainability Project Coordinator Record Time In 09/17/21 09:55:00 09/17/21 09:55:00 [...] Signatures Signed By (more content not included)... [facility] MAGR PACU Recordon MAGR PACU Record MAGR PACU Record Summary Primary Physician: DAVID AWAD DO Finalized Date/Time: 09/17/21 15:19:58 Pt. Name: ZAINA WINTERS Carmen House/Sex: 1950 MALE Med Rec #: [id number] Physician: DAVID AWAD DO Financial #: [id number] Pt. Type: D Room/Bed: 229/1 Admit/Disch: 09/17/21 08:03:00 - Institution: PACU Case Times MAGR Entry 1 In PACU I 09/17/21 14:10:00 Discharge from PACU 09/17/21 15:15:00 I Last Modified By: Vianca Celaya RN 09/17/21 15:19:57 Finalized By: Vianca Celaya RN Document Signatures Signed By: Vianca Celaya RN 09/17/21 [facility]-17-2021 MAGR Preoperative Record MAGR Pre-Op Record Summary Primary Physician: DAVID AWAD DO Finalized Date/Time: 09/17/21 10:43:23 Pt. Name: ZAINA WINTERS /Sex: 1950 MALE Med Rec #: [id number] Physician: DAVID AWAD DO Financial #: [id number] Pt. Type: D Room/Bed: [facility]/1 Admit/Disch: 09/17/21 08:03:00 - Institution: [...] denies, DM, pacer/defib, POOL. Finalized By: Vianca Celyaa RN Document Signatures Signed By: Vianca Celaya RN 09/17/21 10:43 [facility] Nutrition Noteon 09-17-2021 Nutrition Note Pt [...] with in house available Ensure Compact BID. [facility] Progress Note - Nurseon Progress Note - Nurse IV fluids stopped for good PO intake at this time [Electronically Signed on: 09/24/2021 15:45 EDT] Raquel Duvall RN [Verified on: 09/24/2021 15:45 EDT] Raquel Duvall RN [facility] XR Knee One or Two Views [...] MD 09/17/21 4:07 pm Technologist: Abilio AMIN [facility] Progress Note - Nurseon Progress Note - Nurse Pre-op phone call complete. Reviewed arrival time of 0830 on Monday09/17/2021 and pre-op instructions with pt. Pt voiced understanding and is without further questions or concerns at this time. [Electronically Signed on: 09/16/2021 09:25 EDT] Brayan Roach RN [Verified on: 09/16/2021 09:25 EDT] Brayan Roach RN Normal [facility] 2019 Novel Coronavirus (CoVI D-19), JULISSA LCon 09-14-2021 SARS-CoV-2 (COVID-19) RNA JULISSA+probe Ql (Unsp spec) Not detected Invalid Interpretation Code Not Detected [facility] Comment on above: Order Comment: [id number] Result Comment: This nucleic acid amplification test was developed and its performance characteristics determined by [employer]. Nucleic acid amplification tests include RT- PCR [...] detected) result in this assay. Performed At: [place] [id number] [place], [place] [id number] Zay Landa PhD Ph:[phone] Performed By: #### 6 [id number] #### [facility] (DEFAULT) [address] [place] [address] Coding Summaryon 09-14-2021 Coding Summary [facility] FsttmhnkZZl8eFy+PGhl YWQ+HF5XXJKhY51teTWo tO0VM8kDBF2WEZCRSKCX HE2LXX0wvAT6NRbiY2Zy biAv GtnlbNLyZJ32QKj3NPI3 sSefGUbfbV4otRKiE9r6 MhVhJT67xJ15CPhvZCCe BvD4BhBjmexgvZIj G2bhCpNpdUYoEyo+PHRh YmxlIHdpZHRoPScxMDAl GiEzkOlhLF4iIp3bEOTi LWNvbGxhcHNlOiBj v2icBAZsCJtsIM4yiGlf V6WuuOU5UIInl6y4Od61 dHI+WVDdECC3tKptBRdj s677ErJtk7ivFBY3 nUWrRLvtCWS2I13ww5I6 RELpOJSeZQE7oRN9aB1u oTizpxcdC1ZxqIHzAtK0 WLX8cTPfkO0zzTdm uxpfrB5tGth+C86XYL0D FYSWWC9HVry0X9IgWodq dHI+RN98HXVcKO30xLNj jMAsu0nntIv5KeRu UOKwABY8jUdjPKgsi9Ew BVDmW86njVRol5E9WSHc bDmesJHeVyCynYS4nX5s THngwxvfq4svfdzl Jjspi4tucq35lR66J07s DOniIMVsEUQ9OPYcBBBg cAkota3cjY4fEg4+IDxj l6wub2ztxFh1PtMw SPJiitQpgMpvJMQ2d5Jk Ei83Y9WxuIpbe6UgIjx0 ux56aWKwa4I2wFY4XIfb FOWicZ1sZAscHuW7 TPWxTfIhvO52zNBcDLud Vv9coZcrrJklHE4tQQLy ifdqMVNoiU2bSHNwaMGa hLhxTV3pQAIpfbru z821OaMvKKS3CKPxiAXz P3AonW5lMqWzDNZdZUPk A3NbfBHtEDstW101VEss OrG4KVKkgtCqH4Qx QXSzxXyyOnG5v0N4Nb7F m9OdjrjaHTC7JHuxBQC5 OcAkGfKjSnH5F6ZyUzs2 LXOtqGdzFP7bL6Fc QCKvysotazespLS2GXHd ANUhfA77dCZcFJiyOt4c o7M2i039REYvDVBuxA84 Ba3vqByfMOTvyRNX sZ3edlhei4miyedhWqXq ZJZmKSu9GWo5LYCecBim HbNtFPA4WuS0IAQ8sCMn nG5xkKinjklheS9n Oyc+J92ldE2uBPD3JJB2 kplxSTYjsrCyQC73IF35 U8HxDdvddRBhrDA+PGRp jdPczKhbTB8zXaBk u9tqs1MrZAgbC1HsWNBg RIjeMwy3IBAaSAL4mLE6 oK4jSVBeVYrun6O5wCC3 E4RgpzBfqo5yr6no KLQzDGwmD04mtPKyf7R6 OQUnnZH0THCapFhsAuWo oQ97Mkh+MIFhiUkno8Aq Jgefe7fni6aerOc7 IjMwJSIgdmFsaWduPSJ0 v4JpAj18K48yVRetDSKd HLQtVDQkKJRxlAwtxt5y bD3iSf7+PGNvbCB3 nHH3fK4cWZSgWcR5HQtl P517OjNkxEHcKdkzv1lf w4dsiOh0SlBiBJGmacId xWryUCB8c2PmDl39 L80dKMssPSWtMMPzTTOa TDBapAupmd9zxX3yUn3+ YS9if0kqei47cK27fXP+ TLZaURG0dFjjWQfp AIErmS7dVDciFdS0IMJk QlLbwB82lXYsUCmlCp2n oJbcfGcqNQ8eAXFycihl n592YoLxq2rnHRLx jVAlNFysVOK6D99zw3K6 GVFdARXoZPH3zSN4cL9o bGlnbjogbGVmdDsgdmVy vEmyBUrgVXbrR632 IHRvcDsnPlBhdGllbnQg LaHcATa9L3IqCxd8WBNt eNzcAL2qfKPqIJbbQn5u mIzqxRjsPK1rTZZb wedzv622WoHdq7pdGJDc fTKbAPqbBWU1H32ml5T7 KPTiTWSbUYG2pCB9wZ7l bGlnbjogbGVmdDsg cwGuiGhkTLwtRWlbT487 IHRvcDsnPkJpcnRoIERh xQT0RA49XY50zLOcp9R6 iSD2C2TaFSYddtla ewaltRZ8NDDcPJHycN75 Na4uoMurPq5gEVKtQSX7 YPIrxWRyF2EdpR3kHjVg XEUcKDVgU6OzxGRf XKisG219KXtcXqT3TCSo mxThL6PvWDSqmJmeJnU1 y8P5Bw7WY4A0OR90TW63 cTSft4P7rQR8O7Nn ZOYzxzopvashgLU1NPXz GIQvnQ00Jd3flBuqUs6l KABiYVL3KNUjmPZpE9Vo dR3xQvUoNFCjEYBw H4KiyOFgRVdlV860HXsr QuT9FWMiywFyK7IuPVVg nJgxCzI8o2U6Cf8RTXk1 PZ46UV80sTFry7L4 hSX1X2RbOPEjjltkyioc cWD6CRPgVECwrN56Vv7o kTrzXj8yISGsMKI6UKXf yJArP9HrpH5tTmUg URHtOOTbG2AqnQEaVZep W865MOrbQkK0QCWzaeOg C3YiZHHevVnjQiF9y7H7 Pf9WKWKjLJ62WAV3 qTX0MY18SX77Z1KxYylv dGFibGU+PHRhYmxlIHdp ZHRoPScxMDAlJyBzdHls VV2yDm8tUWLkBIJv hNkvjOBhXiRaf8ytJLOg XZgkOQ6qoVokR2MkjER6 TEQcs0r4Hr74I00gT3Vy dXA+BTYseXE1hAN7 hN2dUzRmXzE5BKbrQ011 CeDctOGiNjsib9caq2ml eDs3QnK6HWFjexVtfAgm THT9j1AeZz68Y80i IHdpZHRoPSIxNSUiIHZh gQdjbi4mlD7fFn8+PGNv fUE7eOS9iY0jIiWcWyZ2 QPhbP868XeKccWNr Zmwqs5cga5shlGw4WgNa PFCfvzHkyGkyLTE1p0Tf Ot80N5GmuVsoi1EyBrt5 on43cKRup2W0sUZ0 L7VlKPBiqtmnfATanOfr DL2zVBXywwntXCFuqX9c ZVYiI3j7JmFwNiW4UAwu I9UawmN1JXTupQOw OWzvWVG0S07gn0D1NEGj IOXbIPZ7aNQ9eU8urNin bjogbGVmdDsgdmVydGlj LWjySVjxV949ZQYb fPwqLABaiV7kFXApwYBq qEmfNG8vEGXloqeeMgmN QkVSTElORywgTEFXUkVO I5XwQTwmsKC+PHRk ZDO9qUmxBCcmBGLhiC6t XOYpC4t6UePzYwR7JTja U3VyTYTcajjiEx17qU2l JyOdZiH4NXpvP0Sc myC0HVDugMQtLApxXDZ2 X22oa9K9PUAgTBWxCVO0 tEF6lC4vpFfhxvjwrVSb dDsgdmVydGljYWwt AVqpS613ESCgsOnrOxO9 VaEiYoB3IWl6Q5ImIkc2 ZWPpyZrmGJ5ubOQhOZad Ng4foLpzzFffPJ2x TBMgnhpaTSJemZ3aTEIb hFNtrWhwNL3kMLKadwhc k995HzKwIWL7BKNrdSXk G2YjxF0pYdBwAJEs TBFkU3RwlMOhPBjcM600 JQwcVgN3CSHzetIuU7Ek XRIlbFspFxP2q6I5Jx90 MiBZZWFyczwvdGQ+ EXIjWZZ3oQpcSXvmNCVn mQ8iDNHtE9k6XmMcGtA4 IGaoF1XqJYVpsrxuXj90 dL3jIdEdEaV3TUdk F9ZhncF1UCNtdKQiUOsz AQP6P13ba9R8KBAdKDAf VJN8pNV9uJ6yjSapkbqp bGVmdDsgdmVydGlj OZmzGSgfA515IFGwjOnl Fe1ORGM8Y7UuHnb0VCMu mVqsGP7otOEzUHvoEv9x vFllvHzrXO2uPDNp osqrPIHhtR4yGGPbqDQo cVwvHI6sTWNpjwxtx002 UdOnPTU0AQVltAPqD6Uo sO7eEoSqJSDlPYZx H6LcgFArOVegN051TLxi OxX7WWLmgpDvF5IdIBHo wMdbZpG6x4O4Me7RKRml dGQ+DR98kv64U3Uk OawdOfc3PXLbWWI2sYM5 jB0fOITpYBnxd4S4wTI9 R7SzmkSxat8yn2ceQBJp URrlO62ojTKob0Z9 EUCcyJH2HAEwcAnxIsWz sA66Xmk+JRAunLoro7En Xwjnd8uzq0izvUg5UsKz JSIgdmFsaWduPSJ0 z3EkXb38O39vUDjnAYWt QYGeLGSdLFRdjNeajl1e bV7yIl7+YADyqSL4jXX7 wY6qMhKuRbV5WIzv B937FnNejDHkHutzc3oi q3buwBd2GlRoPKReidCf zVnfXWD4v1QyOx60N6Xd cHcop7TzIlz1ys61 rZBqy4T6jOC6X1AbGBQv yzoenIRccUtgAL7eNDFq padeAJYvlD2cFICgR7x9 RqGlRsW5XYerW6Jn oaN3KFZdiYMfVTOwwVVQ lK8uaicpc0asdspcVzNo NJMfXJg3VXi7GRIyjIow MiLrIUC9AfW8HMH7 wWRxoP6nsOckewjiiM1c Oyc+GGu5r0itjZFcUI9q iXY3UQ06FT82hBTyo2N3 eEK5Q6HcJNSqgffq nvhmhEB7OJOgBVOtcH61 Gb1bcRfeZm6aZHNfQUW9 RSNgdGVaK7VjxA0vXcFf VGMlDIQmH9CicJBo UJisT144VSweDwM9DXHw qwCqD8HwBNZazLcuRoN0 f2U8Zm5NHA08FV96XY62 kMZnv7X9hPB9H0Fs TZDkzlzrtfhpvKV1LNLn OQKxfS18Cc3kjYkySl4d YCQmIFT5VMMpeKTeE6Qc hU8hFvQmERSvDGYg E1KvzOZsIWtqG631DEvi IfF3UOElphZtP1GeZHGw kNiwVkO8l3G8Tu5PAb80 OI60UR59tMWpj3W1 pFN1Z3MeVSRbokfafxjy xSD3SPExYZXydD35Hu2u jAemVd0pUVTnAZL0QYNg gZRrY7WabA1yUhLw YDVwQXHbY8OfgYSgMChc X328BGzeOkT6SZPgulPz P6CfQHSdvKzlVvJ2t8V9 Kd0BIGwsscs6S9Hx PjwvdHI+TR31GPKwQA90 hTTwqVJcu3pvnFe6GvVc WMPaNBK8tYvvOOqdb4Xt GWSvU50lqODcw1V5 IGN (more content not included)... [facility] C Urineon 09-03-2021 C Urine <10,000 cfu/ml [facility] Comment on above: Performed By: #### 6 [id number] ####[facility] (DEFAULT)[address] [place] [address] [id number] Progress Note - Nurseon 08-14 Progress Note - Nurse PAT chart for 09-17-2021 surgery reviewed per anesthesiologistDr Mccauley- no additional orders received. [Electronically Signed on: 09/02/2021 13:45 EDT] Rita Molina RN [Verified on: 09/02/2021 13:45 EDT] Rita Molina RN [facility] Provider Orderson 09-02-2021 Provider Orders [id number] #1.00OTGTIFF [facility] .Auto Diff 1on 09-01-2021 Auto Stearns % 9 % Normal 02-24 [facility] Comment on above: Performed By: #### 1 [id number] ####[facility] (DEFAULT)[address] [place] [address] 74564 Baso Abs# 0.0 x10 Normal 0.0-0.2 [facility] Comment on above: Performed By: #### 1 [id number] ####[facility] (DEFAULT)[address] [place] [address] 15896 Basophils/100 WBC (Bld) 0.6 % Normal 0.2-2.0 [facility] Comment on above: Performed By: #### 1 [id number] ####[facility] (DEFAULT)[address] [place] [address] 88028 Eos Abs# 0.0 x10 Normal 0.0-0.4 [facility] Comment on above: Performed By: #### 1 [id number] ####[facility] (DEFAULT)[address] [place] [address] 59312 Eosinophils/100 WBC (Bld) 0.7 % Low 0.9-4.0 [facility] Comment on above: Performed By: #### 1 [id number] ####[facility] (DEFAULT)[address] [place] [address] 18892 Lymph Abs# 2.2 x10 Normal 1.3-2.9 [facility] Comment on above: Performed By: #### 1 [id number] ####[facility] (DEFAULT)[address] [place] [address] 28914 Lymphocytes/100 WBC (Bld) 31 % Normal 14-48 [facility] Comment on above: Performed By: #### 1 [id number] ####[facility] (DEFAULT)[address] [place] [address] 88356 Stearns Abs# 0.7 x10 Normal 0.0-0.8 [facility] Comment on above: Performed By: #### 1 [id number], [id number] ####[facility] (DEFAULT)[address] [place] [address] 41123 Neut Abs# 4.1 x10 Normal 1.5-9.2 [facility] Comment on above: Performed By: #### 1 [id number], [id number], [id number] ####[facility] (DEFAULT)[address] [place] [address] 00063 Neutrophils/100 WBC (Bld) 58 % Normal 44-88 [facility] Comment on above: Performed By: #### 1 [id number], [id number], [id number] ####[facility] (DEFAULT)[address] [place] [address] 94892 [facility] Standardon 09-01-2021 eGFR Non AA >60 Invalid Interpretation Code [facility] Comment on above: Performed By: #### 1 [id number], [id number], [id number] ####[facility] (DEFAULT)[address] [place] [address] 69720 eGFR AA >60 Invalid Interpretation Code [facility] Comment on above: Result Comment: [employer] Representative korina Kidney disease could be indicated at eGFRs of less than 60 ml/min/1.73m2. Kidney Failure is indicated at less than 15 ml/min/1.73m2 Performed By: #### 1 [id number], [id number], [id number] ####[facility] (DEFAULT)[address] [place] [address] 72093 Anion gap [Moles/Vol] 12.0 mmol/L Normal 5.0-19.0 [facility] Comment on above: Performed By: #### 1 [id number], [id number], [id number] ####[facility] (DEFAULT)[address] [place] [address] 18460 Calcium [Mass/Vol] 9.7 mg/dL Normal 8.9-10.3 [facility] Comment on above: Performed By: #### 1 [id number], [id number], [id number] ####[facility] (DEFAULT)[address] [place] [address] 93673 Chloride [Moles/Vol] 102 mmol/L Normal 101-111 [facility] Comment on above: Performed By: #### 1 [id number], [id number], [id number] ####[facility] (DEFAULT)[address] [place] [address] 42199 CO2 [Moles/Vol] 29 mmol/L Normal 21-32 [facility] Comment on above: Performed By: #### 1 [id number], [id number], [id number] ####[facility] (DEFAULT)[address] [place] [address] 56034 Creatinine [Mass/Vol] 0.94 mg/dL Normal 0.90-1.30 [facility] Comment on above: Performed By: #### 1 [id number], [id number], [id number] ####[facility] (DEFAULT)[address] [place] [address] 95595 Glucose [Mass/Vol] 109.0 mg/dL Normal 74.0-118.0 [facility] Comment on above: Performed By: #### 1 [id number], [id number], [id number] ####[facility] (DEFAULT)[address] [place] [address] 54389 Osmolality 281 mOsm/L Invalid Interpretation Code [facility] Comment on above: Performed By: #### 1 [id number], [id number], [id number] ####[facility] (DEFAULT)[address] [place] [address] 20474 Potassium [Moles/Vol] 4.1 mmol/L Normal 3.6-5.1 [facility] Comment on above: Performed By: #### 1 [id number], [id number], [id number] ####[facility] (DEFAULT)[address] [place] [address] 45796 Sodium [Moles/Vol] 139.0 mmol/L Normal 136.0-144.0 [facility] Comment on above: Performed By: #### 1 [id number], [id number], [id number] ####[facility] (DEFAULT)[address] [place] [address] 71522 Urea nitrogen [Mass/Vol] 21 mg/dL Normal 8-26 [facility] Comment on above: Performed By: #### 1 [id number], [id number], [id number] ####[facility] (DEFAULT)[address] [place] [address] 12222 Urea nitrogen/Creatinine [Mass ratio] 22.0 mg/mg High 4.6-16.2 [facility] Comment on above: Performed By: #### 1 [id number], [id number], [id number] ####[facility] (DEFAULT)[address] [place] [address] 04865 CBC w/ Auto Diffon 2 Erythrocyte distribution width (RBC) [Ratio] 14.0 % Normal 11.5-15.0 [facility] Comment on above: Performed By: #### 1 [id number], [id number], [id number] #### [facility] (DEFAULT) [address] [place] [address] Hematocrit (Bld) [Volume fraction] 45.0 % Normal 34.8-51.9 [facility] Comment on above: Performed By: #### 1 [id number], [id number], [id number] #### [facility] (DEFAULT) [address] [place] [address] 50925 Hemoglobin (Bld) [Mass/Vol] 14.5 g/dL Normal 11.8-17.7 [facility] Comment on above: Performed By: #### 1 [id number], [id number], [id number] #### [facility] (DEFAULT) [address] [place] [address] Instr WBC 7.0 x10 Invalid Interpretation Code [facility] Comment on above: Performed By: #### 1 [id number], [id number], [id number] #### [facility] (DEFAULT) [address] [place] [address] Man Diff? Auto Normal [facility] Comment on above: Performed By: #### 1 [id number], [id number], 9960617 #### [facility] (DEFAULT) [address] [place] [address] 78246 MCH (RBC) [Entitic mass] 30 pg Normal 24-34 [facility] Comment on above: Performed By: #### 1 [id number], [id number], 8013532 #### [facility] (DEFAULT) [address] [place] [address] 70575 MCHC (RBC) [Mass/Vol] 32 g/dL Normal 26-37 [facility] Comment on above: Performed By: #### 1 [id number], [id number], 9738254 #### [facility] (DEFAULT) [address] [place] [address] 37220 MCV (RBC) [Entitic vol] 93 fL Normal 81-100 [facility] Comment on above: Performed By: #### 1 [id number], [id number], [id number] #### [facility] (DEFAULT) [address] [place] [address] Platelet 216 x10 Normal 138-427 [facility] Comment on above: Performed By: #### 1 [id number], [id number], 8355814 #### [facility] (DEFAULT) [address] [place] [address] 01631 Platelet mean volume (Bld) [Entitic vol] 10.2 fL Normal 6.3-10.2 [facility] Comment on above: Performed By: #### 1 [id number], [id number], [id number] #### [facility] (DEFAULT) [address] [place] [address] 01003 RBC 4.86 x10 Normal 3.70-5.30 [facility] Comment on above: Performed By: #### 1 [id number], [id number], [id number] #### [facility] (DEFAULT) [address] [place] [address] 95871 WBC 7.0 x10 Normal 3.5-10.5 [facility] Comment on above: Performed By: #### 1 [id number], [id number], 4999652 #### [facility] (DEFAULT) [address] [place] [address] 59213 XR Bone Length Studies Scano [facility] 09-01-2021 XR Bone Length Studies Scanograms [...] MD 09/04/21 4:45 pm Technologist: Elysia SIMONS [facility] Complete Blood Count with Au to Diffon 06-09-2021 Basophils (Bld) [#/Vol] 0.04 10*3/uL Normal 0.00-0.20 [facility] Comment on above: Performed By: #### C FRANCISCA, CBCAD #### [facility] [address] [place], [place] [id number] Basophils/100 WBC (Bld) 0.6 % Normal [facility] Comment on above: Performed By: #### C FRANCISCA, CBCAD #### [facility] [address] [place], [place] [id number] Eosinophils (Bld) [#/Vol] 0.11 10*3/uL Normal 0.02-0.50 [facility] Comment on above: Performed By: #### C FRANCISCA, CBCAD #### [facility] [address] [place], [place] [id number] Eosinophils/100 WBC (Bld) 1.7 % Normal [facility] Comment on above: Performed By: #### C FRANCISCA, CBCAD #### [facility] [address] [place], [place] [id number] Erythrocyte distribution width (RBC) [Ratio] 13.7 % Normal 11.0-15.0 [facility] Comment on above: Performed By: #### C FRANCISCA, CBCAD #### [facility] [address] [place], [place] [id number] Hematocrit (Bld) [Volume fraction] 43.3 % Normal 38.5-50.0 [facility] Comment on above: Performed By: #### C FRANCISCA, CBCAD #### [facility] [address] [place], [place] [id number] Hemoglobin (Bld) [Mass/Vol] 14.1 g/dL Normal 13.0-17.1 [facility] Comment on above: Performed By: #### C FRANCISCA, CBCAD #### [facility] [address] [place], [place] [id number] Lymphocytes (Bld) [#/Vol] 1.7 10*3/uL Normal 0.9-3.9 [facility] Comment on above: Performed By: #### C MP, CBCAD #### [facility] [address] [place], [place] [id number] Lymphocytes/100 WBC (Bld) 26.3 % Normal [facility] Comment on above: Performed By: #### C MP, CBCAD #### [facility] [address] [place], [place] [id number] MCH (RBC) [Entitic mass] 29.1 pg Normal 27.0-33.0 [facility] Comment on above: Performed By: #### C MP, CBCAD #### [facility] [address] [place], [place] [id number] MCHC (RBC) [Mass/Vol] 32.6 g/dL Normal 32.0-36.0 [facility] Comment on above: Performed By: #### C MP, CBCAD #### [facility] [address] [place], [place] [id number] MCV (RBC) [Entitic vol] 90 fL Normal 80-100 [facility] Comment on above: Performed By: #### C MP, CBCAD #### [facility] [address] [place], [place] [id number] Monocytes (Bld) [#/Vol] 0.6 10*3/uL Normal 0.2-0.9 [facility] Comment on above: Performed By: #### C MP, CBCAD #### [facility] [address] [place], [place] [id number] Monocytes/100 WBC (Bld) 9.6 % Normal [facility] Comment on above: Performed By: #### C MP, CBCAD #### [facility] [address] [place], [place] [id number] Neutrophils (Bld) [#/Vol] 3.9 10*3/uL Normal 1.5-7.8 [facility] Comment on above: Performed By: #### C MP, CBCAD #### [facility] [address] [place], [place] [id number] Neutrophils/100 WBC (Bld) 61.5 % Normal [facility] Comment on above: Performed By: #### C MP, CBCAD #### [facility] [address] [place], [place] [id number] Platelet mean volume (Bld) [Entitic vol] 11.30 fL Normal 7.50-12.50 [facility] Comment on above: Performed By: #### C MP, CBCAD #### [facility] [address] [place], [place] [id number] Platelets (Bld) [#/Vol] 222 10*3/uL Normal 140-400 [facility] Comment on above: Performed By: #### C MP, CBCAD #### [facility] [address] [place], [place] [id number] RBC (Bld) [#/Vol] 4.84 10*6/uL Normal 4.20-5.80 [facility] Comment on above: Performed By: #### C MP, CBCAD #### [facility] [address] [place], [place] [id number] RDW-SD 44.9 fL Normal 37.0-50.0 [facility] Comment on above: Performed By: #### C MP, CBCAD #### [facility] [address] [place], [place] [id number] WBC (Bld) [#/Vol] 6.4 10*3/uL Normal 3.8-11.0 [facility] Comment on above: Performed By: #### C MP, CBCAD #### [facility] [address] [place], [place] [id number] Comprehensive Metabolic Pane chikis 06-09-2021 Albumin [Mass/Vol] 4.6 g/dL Normal 3.6-5.1 [facility] Comment on above: Performed By: #### C MP, CBCAD #### [facility] [address] [place], [place] [id number] Albumin/Globulin [Mass ratio] 2.2 {ratio} Normal 1.0-2.5 [facility] Comment on above: Performed By: #### C MP, CBCAD #### [facility] [address] [place], [place] [id number] ALP [Catalytic activity/Vol] 80 U/L Normal 40-129 [facility] Comment on above: Performed By: #### C MP, CBCAD #### [facility] [address] [place], [place] [id number] ALT [Catalytic activity/Vol] 16 U/L Normal 9-46 [facility] Comment on above: Result Comment: 01/13 Female reference range changed. Performed By: #### C MP, CBCAD #### [facility] [address] [place], [place] [id number] Anion gap [Moles/Vol] 17 mmol/L Normal 12-20 [facility] Comment on above: Result Comment: Effe ctive 02/18/2019 reference range changed. Performed By: #### C MP, CBCAD #### [facility] [address] [place], [place] [id number] AST [Catalytic activity/Vol] 22 U/L Normal 10-40 [facility] Comment on above: Performed By: #### C MP, CBCAD #### [facility] [address] [place], [place] [id number] Bilirubin [Mass/Vol] 0.40 mg/dL Normal 0.30-1.20 [facility] Comment on above: Performed By: #### C MP, CBCAD #### [facility] [address] [place], [place] [id number] BUN/CREA 20 Ratio Normal 6-22 [facility] Comment on above: Performed By: #### C MP, CBCAD #### [facility] [address] [place], [place] [id number] Calcium [Mass/Vol] 9.4 mg/dL Normal 8.6-10.2 [facility] Comment on above: Performed By: #### C MP, CBCAD #### [facility] [address] [place], [place] [id number] Chloride [Moles/Vol] 101 mmol/L Normal 98-107 [facility] Comment on above: Performed By: #### C MP, CBCAD #### [facility] [address] [place], [place] [id number] CO2 [Moles/Vol] 26 mmol/L Normal 20-31 [facility] Comment on above: Performed By: #### C MP, CBCAD #### [facility] [address] [place], [place] [id number] Creatinine [Mass/Vol] 0.7 mg/dL Normal 0.7-1.4 [facility] Comment on above: Performed By: #### C MP, CBCAD #### [facility] [address] [place], [place] [id number] eGFRAA 132 mL/min/1.73m2 Normal >60 [facility] Comment on above: Performed By: #### C MP, CBCAD #### [facility] [address] [place], [place] [id number] eGFRNAA 109 mL/min/1.73m2 Normal >60 [facility] Comment on above: Performed By: #### C MP, CBCAD #### [facility] [address] [place], [place] [id number] Globulin (S) [Mass/Vol] 2.1 g/dL Normal 1.9-3.7 [facility] Comment on above: Performed By: #### C MP, CBCAD #### [facility] [address] [place], [place] [id number] Glucose [Mass/Vol] 98 mg/dL Normal 65-99 [facility] Comment on above: Result Comment: For FASTING Glucose --- ADA reference ranges: Normal 65-99 mg/dl Prediabetes 100-125 Diabetes >/= 126 Performed By: #### C MP, CBCAD #### [facility] [address] [place], [place] [id number] Potassium [Moles/Vol] 3.9 mmol/L Normal 3.5-5.5 [facility] Comment on above: Performed By: #### C MP, CBCAD #### [facility] [address] [place], [place] [id number] Protein [Mass/Vol] 6.7 g/dL Normal 6.1-8.1 [facility] Comment on above: Performed By: #### C MP, CBCAD #### [facility] [address] [place], [place] [id number] Sodium [Moles/Vol] 139 mmol/L Normal 135-146 [facility] Comment on above: Performed By: #### C FRANCISCA CBCAD #### [facility] [address] [place], [place] [id number] Urea nitrogen [Mass/Vol] 14 mg/dL Normal 7-25 [facility] Comment on above: Performed By: #### C FRANCISCA CBCAD #### [facility] [address] [place], [place] [id number] Hemoglobin A1Con 06-09-2021 EAG 136.98 Normal [facility] Comment on above: Performed By: #### A 1C #### [facility] [address] [place], [place] [id number] HbA1c (Bld) [Mass fraction] 6.4 % High 4.0-6.0 [facility] Comment on above: Performed By: #### A 1C #### [facility] [address] [place], [place] [id number] Q - B-TYPE NATRIURETIC (BNP) on 06-09-2021 Natriuretic peptide B (Bld) [Mass/Vol] 33 pg/mL Normal <100 [facility] Comment on above: Order Comment: [facility] performed at: [facility], [address] [place] [address], [address] [place] [address], [id number], Mechanical Repair Worker: Curtis Lyons MD [facility] Collection Date/Time: [id number] [facility] Results Received Date/Time: [facility] Reported Date/Time: FASTING: NO Result Comment: BNP levels increase with age in the general population with the highest values seen in individuals greater than 75 years of age. Reference: J. Am. Cheryl. Cardiol. 2002; 40:976-982. Performed By: #### 3 [id number] #### [facility] [address] [place] [address] Coding Summaryon 03-16-2021 Coding Summary HTMLBase 64 TrhwzzwzQFq1pVt+PGhl YWQ+CA9LMLVcX29sqMOe cN7VY5zLFS9GPXSNVKQW JZ1OJM1elMP4WOgrR4Lv biAv NcnvlRTuWF42DZf9ZJH4 fGibIMfqfH6ooRBdU8i9 KdAtWJ84wA10ECksQQIl OxE5AcTzckxbsTEq I3xvDtOelZOpBkx+PHRh YmxlIHdpZHRoPScxMDAl OcUkpBenBL8hKw2aZNPb LWNvbGxhcHNlOiBj v2xaQALpLUsyXR5cqInr X7SzmOD6KWOpg5w6Ax61 dHI+FUEtCPO8aByrFYkj h627RtCnd7zaLCW9 cLGlBEqjCZJ4R50wm3W1 PBVkIQCvPMM6sVG9jJ7q jKeoazksX7PfdAQhXkE6 KGU1lJOetD1lvAzc ganmyK2mEsm+E23JBA7P PMMDIO3XSnq9T4HwPntq dHI+KM98RSKjYJ41fEWr qXBil1knaYq1GhHk JVGnLIP2lIjkQFegs1Fg ULUgU70ioFKxw1X0WLUo hWjgmCXwSdItcRN2qC5n EHiunyohz9ygkaei Pcfhs6lgeo84mL22R55w GTbzUQJiWBL7ENEjMXBp nPwesr6mzK6xBn2+IDxj e6tkw3nloLw2XiCf VMCewqIffDdsIIC6g8Hh Qr65N5PnzNznj3CvIkc6 ij20hUHhv6R3nWA2PZzy XSQjxB0uRUttNwC5 PGBxZwXxiS58dQTbJJhg Df5btRoymSpeKA0sSZFx etzkWDRqjH3qLXSbhDZt kEyySY0mJKMylnjz w433ZkXwGHQ7KDNfrOYg Y6TjcC7bVyRpNHUoKDRn S0EmiKVxFThcG367MSdc AlW5HHFivmZuB7Ul KMQwbHpwEgX0z6O6Qg2I t7HygymhHBM1TVdhLSUh MtKrFiGcNeN4P3NqGbp7 MBIiqKhcYC2vI9Lz XEDnowbnmxewzFW0IIVq OGXbqC85hKKaECyhPy0n t5I2h480PVGyTRHzjQ57 Li6igOcoPTKnbXEF mL5ybvgdd5hojpotTeWc PVNeVYj6BEv8IDIxgVzj YeYwREP1NqB3HOL8fYOe cK4ccMswospykF3k Oyc+K07adV8vKYI2QBX0 txxfUIWprpJjDD39MY47 L2YoSoksqXJehZG+PGRp zoGxhErlKY1bCnQk c3kpk5GkPTthT4GuJOGs OWrkXhb6EDUeUEP1wIQ1 bU7eSORvQAand4W1tOS4 H7IawyHiyz0eh2yu KHYnBUhdB74zwLMct7S5 BPNxwHD2MNNzmHrnHnKb gR76Jhc+NBMivMdox4Ku Getkn6wdk3udnHw0 IjMwJSIgdmFsaWduPSJ0 n9DkOk80X76pBWohYXKx TLKpNWAeEZDdzQfrfu4z iH4mMd2+PGNvbCB3 vDG9mL1tFMXsYeV2KSka M227KxMmyWPvTxgqp9bu d2xgwPa1QhNpULUahiLe sQxpZJD6v7TnOc20 V89xUGgqXXPwBPRqKJYe KWXxsUzkzc6hdM8qOm4+ AO6qf4suny22pD83mYH+ CUYxIHC7tYjtIDad GIWhkD3bHWecQmQ4HTJd JlKzzV63hTJlABhgGh0q wUcsrHlhQT4wIXYkjsbc b625GcGgq7nhVVEj dMDgQWooVIP4A45iy4C3 ZYLaGPCqSHL0lBN4yD1c bGlnbjogbGVmdDsgdmVy dWuwIDgfKTikA782 IHRvcDsnPlBhdGllbnQg ZdCvSTn8K6WwTru0IRVd rGsaRE3pxCYhFCqcFe6k rLkqiSeqIT8wYOZp hctpf623UfTzl1crVNTf bIAiLMcuDWI9U25dh6K3 QOAmCMAuRAV0pJK1uO6k bGlnbjogbGVmdDsg ivThtXnnHVyrWPvvO179 IHRvcDsnPkJpcnRoIERh nPZ4WZ23ZN66dNLxn4I9 fAZ1I0AwVFWaybal fkfohPU3LNUqGMNbmE24 Hd9kbDrwPh9pMABnWTF0 XQNwbVKhN8RwjJ9jEuFe CRTiJUIoX0NwqEPl NYvgA933BYakKgD0WIKe svGcV0UbEXMjtQyeDqG0 b7Q1Ws9AR7B8JK65GP73 gYLvp5D1wFI2O4Id JCWmsvxsqhodcYX1HDFk JWEpaL17Zu9vsBviOv7x IUSnGZO0DEGnlAVsT9Sp tP8cMdDoUQAnCPSk L9UdwDRjCUuqN436RWoi UxS3GQVzbyIwD3IoMVWl gXggZhA6c2C5Dz7UHZh3 KO19NW52dQIqc9V7 yXT7K2EwPNImlikmohjv mQB4PTFiHXMcyZ67Kq3e xHnvAx4zXZAmNUX7IIFq uWIsX5QfeG5zOwMt JVXzTFEoI7HwxXLoZIus Y561MAeuJqQ0BWNwfzGg J1WjZIFvsCtmJlX1i4I2 Bg8EKSSkDN04AGZ2 bUD9SW80QV28U5UuHchz dGFibGU+PHRhYmxlIHdp ZHRoPScxMDAlJyBzdHls AM8zLj8dUZNjUHSv hPuazMWjVaJoh7vfLMHg JQnvUF6vzLtlJ2XdrXR4 HNTqf3h2Mp08W45oN1Mp dXA+SSAgfNP2dWN1 yH8cUdTrDxN7RZngI693 WeZkvRRsFghov3jgr3xa wWv7CdI5QZLfpqBtcKqc SMH3r6RaJr11M07b IHdpZHRoPSIxNSUiIHZh mVpkth7wiA0gCl4+PGNv fOD6lQM3nJ5tEwZhZlH2 TEibC609LgCzsEUk Noaik9iqv5tswCi6NdMd LFWcddDraGpxDID1o8Ey Fc60X8XkkSnfp9HvFqu7 dz16pGZod4O9wGW3 U5WhECYyyfbitJStiXmn CU5dTGYrewkfDFGvtR1q DNLeP3s8PyErTwO9FGtg T8JbyaG8LYVxfTKk FYgwPXJ3Y13uy2V9EAFn RCNlEDE7pIV3uM9usVtz bjogbGVmdDsgdmVydGlj QTaaIIanY863IKFp tHysRDOgqE1aGKOdtQEp iLqgXD8zWIMylelsCgjJ QkVSTElORywgTEFXUkVO T4OfDNzibCI+PHRk KDN2iBtuYQevJMKnpL3v OFWjV5c1GdNaNbG8JLpn E8OpWAKcutsyPt66fF9z CcImFsO7VFmfV5Zr roD9DUNnpQIqMLhtRGY0 F57lf0U1UGGmABBoMWG7 cSF1qX7fcBbmqklenWCz dDsgdmVydGljYWwt GQkkK476EXFciNcwXgJ3 YgJyPrW5DVl4A2UlLxa5 ZXJfcGqtFU0ngQDwQIco Ed4keHjalBcvCU1c YINrbafaWZMyaE7sKBAh lSJrkWspDF3tNTYjibei c752AhAmFRZ3WGLqpHAr U8DpnN6eHpCkPZTp BKMhK4WxwHRzGOmuE658 YXhpAoZ1VRDpuuGkO1Ag DYJijNjhGxH7f1J6Gb98 MiBZZWFyczwvdGQ+ BTVhLKE9ePzlDKcbWAZz wO1jIOClI6i5LmUxWhJ9 NHatC3RbFTJqaoexPa40 yR8gQdSmKmF3GSce H9ImmjW8RIKhxJHzEMcv NNR2Y07dq4A6YTMmEJCd TCY5pRM7xZ9sfAfffxry bGVmdDsgdmVydGlj BZkgZTccY189QSPccBpf Nt2LRVS4C1FvMqj3ICUr jByyPW8kcHQzXWxfCt6z oHkduWciAW5uIJPn uabtSMYeoK8gZMYnsBNb cMsdEY0mNCDrjsbji998 MoFkNMN5NATujNSjL8Nm mK9rAjXuWDUhOESy K5FxoBHlEJpiD851TSrp MrK1ZKJxvgQpK8BqAFWo aBygDvP3a1O8Pp5QKKzw dGQ+LX98zi75Z2Np VqfcQdt0JFGcRHZ9hUL8 bF0oWFLoKPyrv1H5hRT3 R0BumwUwmd0wp5blNMIp NZudO09ogBTni5S7 ZJSlnQH0JTMcyCtnHwCi qI01Gbf+KGJxeXbhp9Op Qezlo1hcm2orjUb4YrCv JSIgdmFsaWduPSJ0 p8FsAw03H46sWGfjLVIg AKXtPUSyJWZipXprqd4d hF6uKf6+UZTvlSI7jVB6 tO4bMoCuQcA5UZis L673RfHodGXfBmeme4bi h3aauYa5NsEuFXNfrbEv pCcnEPQ7c6FcDe73P4Up qKoab2HmFut0sc57 rWNzb8X1oKT6R8MfQZEd wueyfCVniDahFE4mADTt rmgbQNOdoA5vRUIlJ1c5 HdNrVnA8CUwdB8Gb fiM5PLRorYTzOZLwlCEO dF9ezlcaz0hdbyaoHsHb IEAlSCv8LSq8FOXixXaz LmNnDWF7VyW8FIF7 kWXowP6amTqfondscX4f Oyc+GHv3o3zciEMxGW8r gEI3IG75RK57kNLkp9X1 pVH9U2KdTWSdsrhg yjevbXP7DDZfPJMluI41 Hj1qgRsnHc4uAGWxFCI6 XUByxXQgB3JxlY8sLlYz PNIqPKGnS7XemQRi NOpzF342EItfKrZ8SKNj snSyI0HtZVSlxQdgLkX3 v7G7Qj7RWM48AK54RH92 eTGwo9J0bLN7Q4Lb FAQtynepsemyeRS1QFYv DIHfdP11Wm2bkXzwVl8a GJIoQQD0ENPcjYVtA3Jn iM4qRyHbCBKxZUYw H7OmvQOvIXlaF841XGty WbY4RTJjwjYyL0FkEZBq iMyiQkC3p1Y9Dd2XGn14 NS46HT48nTXaa6H1 hYP9D4BoCMGtujtopejq gXR6WROsBNAmxQ92Mv7r sDanIp7dKYMiSMB3PNLn gYSgU5JphO6tRoWt AAIuASQcQ8XwfFSqYFdo E281ZUpjZvO4EZZlgoCy T6TaQBIppCmlXsZ7a9L4 La0ALKvqlvs1L0Sw PjwvdHI+LV49KIDqIV24 zDSjkOZff7sasNb5AaGi RKUyWQN0zCttDPjqw4Cv WXCtE72erDPke7H4 IGN (more content not included)... [facility] Consent Formson 03-12-2021 Consent Forms [id number] [id number] [facility] Coding Summaryon 03-09-2021 Coding Summary HTMLBase 64 MynkinprOPa3wEv+PGhl YWQ+RH8JUFUyT53tqYPo eF1UY2yFDL7GZCINPGBG GD6HHL3opQS1DByuM5Zt biAv MxmbmYWiSV28LQs8WTA0 oRfoZQzqkW1skXWfX3x2 UwZdBN81fV43LFngZTRd SwL4YfIsjsdceACj R6twVlTjoHOuLvt+PHRh YmxlIHdpZHRoPScxMDAl XoNneUneCR6mKf4zYFHa LWNvbGxhcHNlOiBj f7zqJUQiKQeuJZ1ckLqe Z9DbeDC4YOBff8z9Dq51 dHI+FAPxFYP3rAqxMYsh s712KiOev7vhUQM5 mPYpGKzqMFR2G16ck7R6 EZZzAFWrTCS9wVG0lW6p dRxctzafG2QvtNKqPvF0 NGM2zJVkrE2edXin ztarcE6vZag+N97BSE0N RGSNFT0DHeb1S0FxKpfb dHI+AW65JVChAX38sESt hAUvn9gwcWc2AzCy OHXdRDM5gBwnPEgtb9Cb QRDaZ62yeISfz3D6WQHp vDcgaNGnYpOjvKG3sO2x PJmbvpcdk5ecsgkm Ujqtq7btei93uY55Z98z OKvqVUIpQJL0BDWfETXn zRovzj1ppC2oEj3+IDxj o8rzb2jkuQa2AiXy IOMrcaJgaMjeNEJ1m1Ef Ma33T8TinDsbm1LbCpv1 ii85xANys1V7hSD6TPzr BEQwcJ8uLQcsHaO2 ANEaAcEogT34xPThSOmt Zh1ixCnvxQqzMX9yWEHi qyokPALkrS9sCXMfjXDb iSqaPU4hSAKwejds c534AmNiJDJ6YBAsiVFt F2AioK1qFrAiHJBiIGBj D6UyoBPnATqzW087NDjl RnD0CBKbilMgD0At OVFzmQbxRzT0i9R3Qs7O p8KuiimkVPR5ZNdoZQLm IaZ1MvEzPnF3I5FiSif4 KWVdbFqdKC9aR4Vp RFFrznxaxmwuwHJ0RAOx KKGxrU42rWChTYquWq7h k0E1o654CCOqOMPvfA07 Up0vhTxgKKMuiZIM zG3znogpc3qkmapqJeMt KKMaGQd5PGi0VSNiuZye SpXoBYB3UsA8QMX7bFZw mH6ivMjvgbyptL0x Oyc+W36tbA2vMXI6JUJ7 vyxoNFYuskGnNS77LZ22 V6PnMeddkOEebBP+PGRp wwXtmEmgSR8eQiAd r9khq9ZgDPxvK8EnTXJc EKyhAkv4LAHfTQW1vED1 rE0uIPCsTFsuz9A1tVL7 R9QsizWayx2vc1df YUPfLXblP87taXGkg8S3 YWBoiAR4WSBjoBehFdBg zU20Nzv+TIHioXhos1Oa Jyaux0gjv4pgzKp3 IjMwJSIgdmFsaWduPSJ0 d6UhNy67F56bYXvkTKVx CNCcGQEyXSUbyJzqbf7j oV2oUs5+PGNvbCB3 oLX0pO7iNWJiMmC0LMgh X807XuArpPRsYfgpd1kt f4xqdJo2KtEiKXVfogPd oOppUIX2k0MbEw04 V85iNOtcTLKyYRGkQWUs AQIkvJyrfq2ezU0bKs2+ HI3dt0xxmw33gO27fHC+ PJPpKSU5lJeiUBvh BFVquE1kYJzxPyP0MTGm DrCraG30pBInAAydNs1x hJiyhZulML1tFNKislpf c115BbBjj6koRJEk dAUnKRbgZUL1A03bd0K6 YGRdZQOkDYC7yPZ4qW4w bGlnbjogbGVmdDsgdmVy nQruTXrkYDjsT753 IHRvcDsnPlBhdGllbnQg FzYzVUu2U9SyOny2XRNh mZkdDA8caAQiQQjmCb2k iPgiyMqbVR5aABFf urpcm903MsDdo2klZLWm pXSrJOdwAJG5V74oc4K7 ZQKyJGZcYYM8fNM5mX3k bGlnbjogbGVmdDsg uiYegRrxUAhdWBrmB273 IHRvcDsnPkJpcnRoIERh hXW0IV71JX00wNTwv1F3 uZG0T8YzJFWwtbxg lqvxsJX8BNCwJFDeoH94 Hr1kwAufRq0lQXVuUPA9 JFYjxYOuH5XwaF7cZoNs BQHdNVNvK2TqxAHa JNzdQ834VBgqTzM6OWLg alKjV3OkWUSzaFvsBtU9 x9O0Uu3TF7P4GF89TQ61 aYWmm2F6oOT0Z0Qe LNYeteeqcdtptCF5NLTs RAKusE82Ql0yjQfvLb0t YMDbAGY2SEIjoMUyU3Zw hJ8rItNxDMMzPFSd C4DzxWWzVZoxI992SOhk QpN2OFZqipBcW0MxCXTs iIkmGfL0j7U6Np2RCZb0 TI72LD65wHMbw1A7 yHO0W5FdMPTlrvmkofhs gYC4FRQtVOUhpF93Ql1o fHntIz9rQWVzFYA0QETg zYXbL5BgvI4kKjPs IQAwYDKtE5BcoIPcAOdl R181BJknOkX8BINraiKq I4PvULJpjQqkKoK0b0V4 Ao8PEFIyCO36ETM6 xKV1CI76ON63T1SpMozl dGFibGU+PHRhYmxlIHdp ZHRoPScxMDAlJyBzdHls LO8cYn3wEVXvNGZa cKlyxCRoZkAxs0ruBZPp VGasEJ7bxXxbN1XglZR2 CSFuh2k7Ek02F72cG7Na dXA+XNFhbBR9dRJ7 jG8vTnImOiC5SFkbO654 CtRvlXXqHcmoz0hse4jk lSc6CbU2LLUybqMwhYht FEP3f3GpLi71W31h IHdpZHRoPSIxNSUiIHZh kWitbp8viC5rJb1+PGNv hWP0sNH8zG1lBfFdVvZ3 ZOxoX081ZeRhnSEz Nzjih3msr4tsnKx1LgPh QVOxbiOefCchEGG3k0Ur Wb77S6XlxAuxw5VuYzz6 en63pLWgr3Y2oYM1 X7EySFQwfiwjlWRgzHsz ZR0nXHMlawyfBYGyeH1e UWYqR8v0ZrEmVcT3BRjf A4GynvD6VUUifAZx BXrkZHD5P54pr0N0FOBr DVSpUYO7dRY7pY3rtQqc bjogbGVmdDsgdmVydGlj GVonOTxbL727VYGk pBhbSQOkqY0kTACyyCNp aBlgGF2xWQHhbzmxZjsU QkVSTElORywgTEFXUkVO V8HhMYcmdSC+PHRk WPH3rRroGXmzZBOjfC2q JNSrM8e5IjQaMkP0CXyo G8SlLKZseozpZm35bN4o OhMjZlQ1RInzL7Nm qpR0IYTjaCZwEFllBFB7 V73te1K9OIJaAPOwQLF3 xSG0tN1opBpamoglbYDy dDsgdmVydGljYWwt ZRtnE482SJSstQrnXgU3 BlKnFeN4VZc9P4InRuv9 NLOjmPxyZD8okWWlMGts Jk7obCrugGpkSB1j TTZolljzMJVeuV6bEHEk uIPidClyTP6uAYXusrdv v433SmGxWKU3PTMlaEGj Z6EbgY9oZiIyCDZv HSBeT0LisKAlPAupJ088 LBnmRkH9RLVqejUvQ7Qx HLJbyRorItL3e1G6Oz06 MiBZZWFyczwvdGQ+ NJDqAWD9aKcmLKtwVPSy qA5yXMTkO7d4CqJfWcJ7 NQyhZ0QhMJTyshkzXi93 wZ8jYsGePsI0LXjw D3DpovC9ECZwnLIsMAxc UOM1Q45uf8H6FZBrNRMy RWX0oIQ9mF7buHtadkhj bGVmdDsgdmVydGlj ZJhbSFtmE179KTNqcUzc Il4XQOR7X6CnTbh8MFMb oJyjVI0iiRAaONqlCq1o fIrrlCxbRU4uYGMp opouTYBzmA7pTGWmlSKp yUjgWX5wWWXejrkmh579 JqNiHYP6KJTztXUwE4Cr nH4dVnMfFICgYLOg G8LyeFBeDMmxV975WRfn DdE4OTIgrmUdZ6CpPPXf xAfcHaJ6b9U9Nc9EStAy cnZhdGlvbjwvdGQ+ BN94tr92P0WcSkhmVxc9 XNZaSEK6jOG3mP9fBMGn JHfgn8I9zUT3G9RuefRf md0oa9glUNEqAUnc A52seJSmi3M5FFUyiUU1 XWKyyNlsCeGrkD46Zqz+ ZSKjoUpwz2MpJmuyd1cg m2tngPh5XcTsFOQv ksZxjMbsCSF0a0OcFj41 U19uUYnbTBXeWCKsZYAg ROVmmXpzic5dzY5kNy4+ YIWmiSE0dIC8pQ6c DoGmSoN0UFqaF843QkMe iADdFfldf1jxs2hubIe2 IjIwJSIgdmFsaWduPSJ0 b0TpBg86R4MdxAqq c6TtJan9uf87cRFhs0S6 xYQ2X3KlAHIpdsntxOBg lJinCP0fDKZqpjoiHZMq dA7tYVAnE1j6EzHp FqN4HSxkD2MuyrC0PDKi cCVrFONlpGQVcZ3goofk g1binlvgWaCjVCGxDSv8 WBw4BTTvvFibTlIx FAM0YvY7PPU2dDLyfZ6n jDrewyekeS4dFdy+UGh5 g9ramVQoPD0qoHO5ZW31 BG36rUSom4D7pZJ5 B1FhXQOiloojwwkvnCD7 BZQtWPKckT77Rp0bpUkt Bj9tXUPlSWY8UGIcfVIl E0EjxY9uZiSdVKPg WCFiK0LhgUAcYLqmS757 AUxdFtU9UVIyiuFbE3Dy GKAkjJefRoK2j3W0Rx2D MG90PR59MW99yOQw n2I6uGQ3Z7YrEDVrdczu zthkgPX5FSFtJQUavB83 Sg2bhUznGi2sZNMwPMB5 XNJyqZQaX2BibB1i RvUpWQHsHZCnN2TopWNg RFeoK943VSahWbL3AHMj bfTkI9RyQKJryNiaIwO3 h6Q3Vp5GIe47OO28 UU28oCPzb3I4uII0Z1Dl FLRvjnowvjrnxOC9CPMk SZRchQ28Nx1qjLilOs5k ZDMxEDD7VJQfmASf Z3JweF1oLfGxBZHlEAAg D2IrcGLmODyjL208ZVjr IuR3JJBkkuDsQ8LaQFEw cEoyYpA5o0Z8Ol8Z MFwwvru2F5HpIhsneOT+ VT57UKHeUV37jRHmlKBi l2ysbUo8XqUpYWDxGIC6 tUslSYnrb4BiYRXo Y29 (more content not included)... [facility] Coding Summaryon 03-08-2021 Coding Summary HTMLBase 64 YnnvegunSPs4aGv+PGhl YWQ+PF4DXWGaJ82zuSRs dE5OM5vYYP6VFDGNDAHO WZ6ZNJ2tbQN8WVhkB5Px biAv OakmfXBsGD26ZZs4PTQ5 rSjaDCyjqC3hlZWgA4h5 TlTuHI12aT31QQfcEBAg ZhZ5YaNmresblXLk U7kpDpNzsZRkGxl+PHRh YmxlIHdpZHRoPScxMDAl XpDttIknPT7jGi7yQZOh LWNvbGxhcHNlOiBj n1rlQARnPJrsQE1zoIbg V3AktNS8BWXuq7h2Ac49 dHI+MKJeVNL0zYraXSuo d359EkYwq9nyZZQ3 yWGhYQulELD7Y49zf2T3 OLTcOUDwHMN8qGS5tR0r cBifwulhP1RqiMSwLnE7 UOH9bDQrkW4dlRlr ghlywB9dOma+L84VMZ6I BDAOZM0SKvc5M0JdVupk dHI+GB70QZIvWW98yHWs dSRno0lrrOo8MwOr MQTjZRX8vRwdJAzwg8Hk BJJrL72pmESlb8X9QYQb lWrxtYKbZcPoqDS1jM6r KTqvmruby8ehsbzj Rytyw1hsvr44jS39L99c VOrfVRUpROH2KATsYPVs mJdkxw8scH6gPy0+IDxj h8hcg8qrrAz6JkIc VAZkizIlaGjoQXG4h8Qb Cv95O2DleGpwn6LqGir6 go18nVUbt8D7tGS5MQet ZRZagL1iRBvsBbL1 CHVbBiRtaK65uEZrLUxq Mw0sdSwzyBkaMW1ySUIk mbeoQVBupE6uOBTxmQDv zEatEO9zTQSbectm v909HuEiKSU6BHUyoIWa Q6JgdP0gNkVoLCGfEUIw N7TsqOIqSOjsF565MOpz BbF6GDKfcrYlF3Eu JNGokHprGjA0p1D0Um4A f0LfvhvqFJF6OGlmABUz FmH6OcQtMrL1H9ZgVnr7 MQZmiAqcVY3jW9Kj ULZugdvyuluiyPI7LQPj TJHjqK07jPAhHSckXf4j y7F2v013DYXjKXPggA04 Vh9nvRniGCDnjVGZ lE0knutak2ivupoxIsPi EIJxGKh0ECv2WCTrvUes GvDbIJJ8XvE6TXX6lHBf mV7alEyedfoyvO3k Oyc+A64zwK4mHUE9HXU2 giewJVGifqYfIZ40OD24 M8CbIwaahEWroKQ+PGRp rrHdmSfhNY0eTaKf x3bqn1LcQJttQ8GhTNVo HIjwCyf8QGRvRLP7vMF2 aR0iMTXyVSrsu4S6aXB8 I7HypbFkqv5yg4sb LQTvORomB00wqFHcx0C1 BNIoxON7DKRvtUmmGkFi uL27Mxh+AHLenHwjv4Uc Iqgfz8yif4jotRs3 IjMwJSIgdmFsaWduPSJ0 p4PyWf89P32aNFzhNRAn EZNuPORmDOYtyOcolx8j gU6iPf5+PGNvbCB3 fCS8gR9iCBBuLgH6LUhw N016EoAxxZCkYtrho8sh k8zszPy2IiZqSIEuyvTt bGyrAPE1u0QzTj11 G83tXRkfINByCLXsKJVn TPPheQnyeb1roF9jDg0+ EC4de3carw37wO23sPG+ YOZmSDT0zJtePGgg DLCzyI4dGPcqDkU5QUFt AmCcbU85dRDpJGadJt8u aDvpbPrcQI5kNSAkzwrs q771OmWti7zvCGXw gESpZAygDIF3A91bj7W0 JBWgJDPjLMY7oYG3nU2t bGlnbjogbGVmdDsgdmVy uXhlWWmfFKsgN870 IHRvcDsnPlBhdGllbnQg LqKuVMq4Q9LaIvr3IPOo wRviYF2tkCFcMKzrDt5g bXmyrLgyNQ2yHJRc hvszg064JaTrk6jqYHAp hLKkLFtnFHP2U58vt7D2 UROmMQNiOKO9xXP9gI9d bGlnbjogbGVmdDsg jfTjmOmyLZjsQDfzF715 IHRvcDsnPkJpcnRoIERh lWD6UV33MY51sUUft2H4 vHQ1F7JiOJRofwjc kjhqoJN2VDEyXAVmpD46 Xn5vlBtgOu1xATLzBHY9 UBLdyXVbF9NojH1tBmJs RXXaHZHiO1PivOEe BUfiD580LAzcXlT9AEPz tyZxF0CwDNHstKwxFhH2 q8E9At2UK0E1KY50KF72 zAKps9K6qYN3E9Xu RJSieyemvtdqgCZ7UWIv KZDagX17Ht5ptYnoZc4m TAPfPMI5ROXfpXTrG9Ai tF3zLwHoTRHdFTTz G0FulASdIPdxP789KQcb ZaE4UGQuycTmG5NcDUMa yRwxEqL9t2H7Ye8XSVr9 RG13CC96bBHtb8M0 kWM9S7DfAMKnobqqdjip sMD0PKDeVUWwrU52Gh8f dKosLn6wTLDnWHH5WAVk eGApT0WusD3nTvMb KUQyKCYzU0FhfOBiJXol Y780LSovEwS5KYMuggFz L2HvHJPniPwlQfN7j9K2 Ih1EZEWcXF70MII6 jLW3LU80DH91Y0LrJult dGFibGU+PHRhYmxlIHdp ZHRoPScxMDAlJyBzdHls OE1iPv6oOBZlNCKc nKveeRSoLxVat8jhXYZi AGumJG5moZxdP8MviJZ6 FDOze0d2Yy53N31eV8Sv dXA+LCHbuOP5zQZ9 yX3xAjVzAiK4WDfaA667 DnGglBZeEfpem9znj7bb sCz0CfB1NEMxwxCkeLtf RDY7f0LiKy22H33j IHdpZHRoPSIxNSUiIHZh zTnioi0sdZ6vYw6+PGNv dYO8sKJ6lW8uElCmSbP4 LEaeB051UpDeiUYb Ulroc1efb2kgbTw5JdDr GDHvbiInjUasLWZ4e8De Dc18F3XinZmot7TtTjs3 ut74bNUta8B8eUW3 G5FzUURonosypMSiiQyk FA7hWBKsshwhGHJjfI4w JBPoH7d4NdFzJqQ0JBnd L9YvtnV2MQKajRBd UJbjNIP8Z47ah4A7QLWf SFDvSUG6uDX6pH3wrSco bjogbGVmdDsgdmVydGlj CBnaQCmmA171ZJNz qYhnLJJzfT8zAQZkoZBl ePdaLZ1pYAOeryakZomJ QkVSTElORywgTEFXUkVO B1LtEAfnpXW+PHRk EOF1eObhQUqhHBThiH6m AOEdK7a5ZsZuQrZ1IBaa G4VgYFUacsqmDp19yG5s OzZiGvN1QZgnM3Qt zmI6ZEXbvCAeBRpyRSB6 Y60me6X7SMNtJVItEEJ5 gHP0kI6oiHnkhdgukQAq dDsgdmVydGljYWwt JVzfN763OWDzwXueKlX5 YfKqMlL5TBs6O4EbRjh4 ISIidPawDN9atVFpFNbq Ud2xhLxsmAyvIL9z RROnhrnyWFHpnX6lNXHy pJQbmYitRY3xHNCbylby y114IlLgFWH0EASjlGFj D5YmfH3eXnAaEHAt YQTfJ0PvzOFiDQqvE479 HYdhXlS8PCKuvxLjO1Tt KNKzvNluJzB7b0X4Bt30 MiBZZWFyczwvdGQ+ HDDuUFH9sAjoFZwmRJKp hO3tLCKxH5x8ZgCcRkJ3 QPbdQ3LfIPEbvtnuHk66 wF4jXoDiJeY7VPfb S1LgllS3XRZbnTKzFBur DPU6L78rm4E0LDMeZOJu LZE7lKN3oW5jhHnlpxyz bGVmdDsgdmVydGlj DIcnFLisB949SXPsoXvy Ys8RYED4W3ZyPnt3LRHe bIsmSJ7ciMWoFYviVz4b yItznBdoCT1wFOWm ndnfWOXmwB8cSAXpmXAm eBpgZT1wTHPipagah590 DhGnDAK6AGMwjRKbD7Ei aC4wIzTbIOZyFBNm M0FcpCKpDIibM835QYid AsV1SJSgsrOmS7SeFENu nZctCrS3r7N9Hs8JEZvi dGQ+OI02dc17Q5An TfmwQii1SDShZNT4mOI6 hF9nDFOySYlhh3G3hTU7 P5AcdySvuc2mc7qpVUWr ANilX22uoDVon4J5 LTJruSY6VSZewPyiVaEc sM66Nqk+EXCwrLxik0Ol Drxoc4jif6mmrWg7UwRw JSIgdmFsaWduPSJ0 t8PcQe48C46bNHamUDRt BXNyKELrUQMplYynta9j iY9aVo2+RRCxoMO6vZE7 hS0jCjTsEaF7RMgq H859ZeKpgOJrTixor8pa y2iipTy5MoRuMHKyucSn dKggGMG7t2HuMo13Y4Zg kBokg4VrMwa5ss26 rQQou5A5xXE1R6MwKAAj wckoaCBjqTohHU1fGDZk jidwCGVufV8bLDDxQ1g2 RwVyYxX5KLswC7Sf mwT4HVLdlNRbKLYcrGRC nT5ykqbme7dlhevyMcKs YMPcRIf5TRx8QOHbmPmy OvNtBHB3RcE8OIM0 jIRslI4rfLflorbmeZ6k Oyc+ORx4q8exqRJzMN2c iTV3SX59XQ33nEBuq4W0 eEQ0O2QsJDUsoqrm tqokaTD9BTPxATAlzG42 Kv5fqAkgUl2yGENsMWA6 SZMxrEIyR2AixF1sBtAs NGFtBUYqZ7KzcNCq ZCiwG203HLveWzQ0DMBa pqUkO4IvMUOrdOcuYrI1 u5D3Cn9BJK50BV00RV34 zHBxb8Q7iGK5W4Bo KFRhildorfbarBH7QEGh JUYtiS77Ao4qaUtfMf9e LOKxIDP5KKQzrEIwY1Io sK1gPgObLOWoKFSh X3LpfYFmWXcxE159USxy JpU9OCRbofMoC3XnFRMy oOhyIaG9k3R4Zb7HQb03 TC14OE12bLYpu8T9 oPF1N2XwJMJrdxdpvymw zJW1GWDsOJXhlD25Ob4k wXxyHj8gRDHfUNQ1DUFy yEQvM7GvlK1lKkQp YWOiMHYlW0PcsIGxXXwg F198UGksIaI2PLApraLm E0OpEEWrfZjhKaE1n2R5 In3QHLwuhze7I8Wp PjwvdHI+KN75CHUuPW59 tKJktKGmq2exxRv6SqTe CTDfIPH4kFdhUUaxn9Ng TBNkI45uuLEql9U4 IGN (more content not included)... [facility] Consent Formson 03-04-2021 Consent Forms [id number] #1.00OTGTIFF [facility] Electronic Messagingon 03-04 Electronic Messaging --- --- --- --- --- --- --- --- --- From: Ej ([email or web address])Ej To: ZAINA WINTERS Sent: 03/04/21 10:12:15 AM EST Subject: Discharge Summary Ready to View A summary regarding your recent visit is available in the Documents section of your Health Record. [facility] MAGR Intraoperative Recordon 03-04-2021 MAGR Intraoperative Record MAGR Intra-Op Record Summary Primary Physician: DAVID AWAD Finalized Date/Time: 03/04/21 08:14:12 Pt. Name: ZAINA WINTERS.O.B./Sex: 1950 MALE Med Rec #: [id number] Physician: DAVID AWAD Financial #: [id number] Pt. Type: O Room/Bed: [facility] [place] Admit/Disch: 03/02/21 05:52:00 - 03/03/21 14:09:00 Institution: [...] Role Performed Surgeon - Primary Anesthesiologist of Sustainability Project Coordinator Record Time In 03/02/21 08:00:00 03/02/21 08:00:00 03/02/21 08:00:00 Time Out 03/02/21 12:09:00 03/02/21 12:09:00 03/02/21 12:09:00 Procedure Arthroplasty Knee Arthroplasty Knee Arthroplasty Knee Total(Left) Total(Left) Total(Left) Last Modified By: Jo-Ann Schwab RN, Barbara RN Long, Barbara RN 03/02/21 12:19:51 03/02/21 12:19:51 03/02/21 12:19:51 Entry 4 Entry 5 Entry 6 Case Attendee Marjorie Esteves [employer], Sue Horner [employer] Role 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 Normal [facility] Outside Recordson 03-04-2021 Outside Records [id number] #1.00[facility] Provider Orderson 03-04-2021 Provider Orders [id number] #1.00[facility] Telemetry Stripson 2 Telemetry Strips [id number] [address] .Auto Diff 1on 03-03-2021 Auto Stearns % 10 % Normal 1-12 [facility] Comment on above: Performed By: #### 1 [id number], [id number], [id number], [id number], [id number], [id number] ####[facility] (DEFAULT)[address] [place] [address] 06928 Baso Abs# 0.0 x10 Normal 0.0-0.2 [facility] Comment on above: Performed By: #### 1 [id number], [id number], [id number], 6846157935, 7804106, [id number] ####[facility] (DEFAULT)[address] [place] [address] 79995 Basophils/100 WBC (Bld) 0.0 % Low 0.2-2.0 [facility] Comment on above: Performed By: #### 1 [id number], [id number], [id number], [id number], 2079517, [id number] ####[facility] (DEFAULT)[address] [place] [address] 75307 Eos Abs# 0.0 x10 Normal 0.0-0.4 [facility] Comment on above: Performed By: #### 1 [id number], 84574867, [id number], [id number], [id number], ####[facility] (DEFAULT)[address] [place] [address] 92319 Eosinophils/100 WBC (Bld) 0.0 % Low 0.9-4.0 [facility] Comment on above: Performed By: #### 1 [id number], 79964090, 0723480106, [id number], [id number], ####[facility] (DEFAULT)[address] [place] [address] 45651 Lymph Abs# 1.9 x10 Normal 1.3-2.9 [facility] Comment on above: Performed By: #### 1 [id number], 86521008, 0877076466, 3663421049, 8289782, [id number] ####[facility] (DEFAULT)[address] [place] [address] 68584 Lymphocytes/100 WBC (Bld) 10 % Low 14-48 [facility] Comment on above: Performed By: #### 1 [id number], 88003790, 3683854396, 7608316865, 7561234, [id number] ####[facility] (DEFAULT)[address] [place] [address] 91180 Stearns Abs# 1.9 x10 High 0.0-0.8 [facility] Comment on above: Performed By: #### 1 [id number], 30621474, 6479509041, 4896043155, 8793825, [id number] ####[facility] (DEFAULT)[address] [place] [address] 36719 Neut Abs# 16.2 x10 High 1.5-9.2 [facility] Comment on above: Performed By: #### 1 [id number], 37595486, 9197379521, 8865589153, 1920248, [id number] ####[facility] (DEFAULT)[address] [place] [address] 18461 Neutrophils/100 WBC (Bld) 81 % Normal 44-88 [facility] Comment on above: Performed By: #### 1 [id number], 55839304, 8819796134, 3023838604, 0210017, 1377190303 ####[facility] (DEFAULT)[address] [place] [address] CBC w/ Auto Diffon 2 Erythrocyte distribution width (RBC) [Ratio] 13.5 % Normal 11.5-15.0 [facility] Comment on above: Performed By: #### 1 [id number], 67398130, 0332427288, 2209420340, 1261265, [id number] ####[facility] (DEFAULT)[address] [place] [address] Hematocrit (Bld) [Volume fraction] 40.5 % Normal 34.8-51.9 [facility] Comment on above: Performed By: #### 1 [id number], 57123595, 9828185181, 3828802714, 5797985, [id number] ####[facility] (DEFAULT)[address] [place] [address] 55055 Hemoglobin (Bld) [Mass/Vol] 12.8 g/dL Normal 11.8-17.7 [facility] Comment on above: Performed By: #### 1 [id number], 56244742, 5257558112, 2537842397, 7984776, 9641078230 ####[facility] (DEFAULT)[address] [place], [place] [address] Instr WBC 20.1 x10 Invalid Interpretation Code [facility] Comment on above: Performed By: #### 1 [id number], 52316654, 2520583088, 9414229292, 2121731, [id number] ####[facility] (DEFAULT)[address] [place] [address] 83315 Man Diff? Auto Normal [facility] Comment on above: Performed By: #### 1 [id number], 02025295, 6716647269, 3450525679, 6810437, [id number] ####[facility] (DEFAULT)[address] [place] [address] 53003 MCH (RBC) [Entitic mass] 30 pg Normal 24-34 [facility] Comment on above: Performed By: #### 1 [id number], 68746384, 5345521681, 6139729749, 5452331, [id number] ####[facility] (DEFAULT)[address] [place] [address] 18912 MCHC (RBC) [Mass/Vol] 32 g/dL Normal 26-37 [facility] Comment on above: Performed By: #### 1 [id number], 93156662, 9242194084, 9375747425, 0250078, 8354841397 ####[facility] (DEFAULT)[address] [place] [address] 91544 MCV (RBC) [Entitic vol] 96 fL Normal 81-100 [facility] Comment on above: Performed By: #### 1 [id number], 92849308, 9140880156, 3838858032, 7630143, [id number] ####[facility] (DEFAULT)[address] [place] [address] 01774 Platelet 275 x10 Normal 138-427 [facility] Comment on above: Performed By: #### 1 [id number], 27064632, 2026815894, 8915690564, 4755741, [id number] ####[facility] (DEFAULT)[address] [place] [address] 72059 Platelet mean volume (Bld) [Entitic vol] 10.3 fL High 6.3-10.2 [facility] Comment on above: Performed By: #### 1 [id number], 94768664, 6197675193, 3973960304, 5359753, [id number] ####[facility] (DEFAULT)[facility] [place] [address] RBC 4.24 x10 Normal 3.70-5.30 [facility] Comment on above: Performed By: #### 1 [id number], 29805874, 1483630823, 9940759941, 5435750, [id number] ####[facility] (DEFAULT)[address] [place] [address] 12655 WBC 20.1 x10 High 3.5-10.5 [facility] Comment on above: Result Comment: Slid e Reviewed Performed By: #### 1 [id number], 76600756, 4840214577, 0525851322, 7268586, [id number] ####[facility] (DEFAULT)[address] [place] [address] 48669 Electrolyte Panel Standardon 03-03-2021 Anion gap [Moles/Vol] 17.0 mmol/L Normal 5.0-19.0 [facility] Comment on above: Performed By: #### 1 [id number], [id number], [id number], [id number], [id number], [id number] ####[facility] (DEFAULT)[address] [place] [address] 33823 Chloride [Moles/Vol] 97 mmol/L Low 101-111 [facility] Comment on above: Performed By: #### 1 [id number], [id number], [id number], [id number], [id number], [id number] ####[facility] (DEFAULT)[address] [place] [address] 84014 CO2 [Moles/Vol] 26 mmol/L Normal 21-32 [facility] Comment on above: Performed By: #### 1 [id number], [id number], [id number], [id number], [id number], [id number] ####[facility] (DEFAULT)[address] [place] [address] 30880 Potassium [Moles/Vol] 3.9 mmol/L Normal 3.6-5.1 [facility] Comment on above: Performed By: #### 1 [id number], [id number], [id number], [id number], [id number], [id number] ####[facility] (DEFAULT)[address] [place] [address] 85555 Sodium [Moles/Vol] 136.0 mmol/L Normal 136.0-144.0 [facility] Comment on above: Performed By: #### 1 [id number], [id number], [id number], [id number], 2857022, [id number] ####[facility] (DEFAULT)[address] [place] [address] 26503 Extra Greenon 03-03-2021 Tube Collected Yes Invalid Interpretation Code [facility] Comment on above: Performed By: #### 1 [id number], [id number], [id number], [id number], [id number], [id number] ####[facility] (DEFAULT)[address] [place] [address] 02247 Inpatient Patient Summaryon 03-03-2021 Inpatient Patient Summary [address] [address] Patient Discharge Instructions Name: ZAINA WINTERS : 1950 Patient Address: [address] [place] [address] Primary Care Provider: Name: Jeannine Hurley After you are discharged if you find you have any questions, please, call [phone] ext [phone] to speak to a nurse. Discharge Diagnosis: [...] contact the [facility] 05/09 Crisis Hotline -Text 4HOPE to 928575. If you received any narcotics, sedation, or [...] business decisions or sign any legal documents [facility] would like to thank you for allowing us to assist you with your healthcare needs. The following includes patient education materials and information regarding your injury/illness. ZAINA WINTERS has been given the following list of follow-up instructions, prescriptions, and patient education materials: Follow-up Instructions With: Address: When: Trenton Redd [address] [place] [address], [facility] [address] [place], [place] [address] Business (1) 03/15/2021 10:30 AM With: Address: When: Jeannine Evangelista [address] [place], [place] [id number] Business (1) Medications During the course of [...] mg oral (more content not included)... [facility]2021 [facility] Postoperative Record [facility] Phase II Record Summary Primary Physician: DAVID AWAD Finalized Date/Time: 03/03/21 08:37:51 Pt. Name: ZAINA WINTERS /Sex: 1950 MALE Med Rec #: [id number] Physician: DAVID AWAD Financial #: [id number] Pt. Type: O Room/Bed: [facility]/1 Admit/Disch: 03/02/21 05:52:00 - Institution: Phase II [...] Signed By: Vianca Celaya RN 03/03/21 08:37 [facility] Nutrition Noteon 03-03-2021 Nutrition Note Pt admitted for scheduled Lt total knee surgery. Diet advanced to 3000kcal DM, along w/ usual post op vitamins/minerals and oral nutritional supplements; adjusted by racebook writer to 2000kcal to better meet nutritional needs without overcompensating. Labs reviewed, BS 138-177mg/dl ideal post op. Pt at high nutrition risk r/t age greater than 65y, however, no immediate nutrition concerns at this time. Will monitor for changes. Normal [facility] Anesthesia Noteon 03-02-2021 Anesthesia Note Patient: [...] on: 03/02/2021 12:40 EST] Dre Santos DO [facility] Anesthesia Note Patient: ZAINA WINTERS Age: [...] = 20 mL, 100 mL/hr, IV Piggyback, Wordpress Developer tranexamic acid: 1,000 mg = 100 mL, 300 mL/hr, IV Piggyback, Wordpress Developer tranexamic acid: 1,000 mg = 100 mL, 300 mL/hr, IV Piggyback, Wordpress Developer Documented Medications Documented Eliquis 5 mg oral [...] All Problems Atrial fibrillation / SNOMED CT 54978445 / Confirmed COVID-19 / SNOMED CT 8108857419 / Confirmed Diabetes / SNOMED CT 773690683 / Confirmed FH: hypertension / SNOMED CT 078612768 / Confirmed 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 Comments: 02/04/2021 10:08 Oliva Van RN surgery [...] review ECG interpretation: Normal sinus rhythm. Plan [employer]#(A SA) physical status classification: [...] EST] Aiden Santos (more content not included)... [facility] MAGR Intraoperative Recordon 03-02-2021 [facility] Intraoperative Record [facility] Intra-Op Record Summary Primary Physician: Finalized Date/Time: 03/02/21 08:23:07 Pt. Name: ZAINA WINTERS /Sex: 1950 MALE Med Rec #: [id number] Physician: DAVID AWAD Financial #: [id number] Pt. Type: D Room/Bed: / Admit/Disch: 03/02/21 [...] Draper, Lora RN Role Performed Anesthesiologist of Sustainability Project Coordinator Sustainability Project Coordinator Record Time In 03/02/21 07:33:00 03/02/21 07:33:00 03/02/21 07:33:00 Time Out 03/02/21 07:57:00 03/02/21 07:57:00 03/02/21 07:57:00 Procedure Adductor Canal Adductor Canal Adductor Canal Block(Left) Block(Left) Block(Left) Last Modified By: Rita Molnia RN, Lora RN Draper, Lora RN 03/02/21 [...] Airway Device Na (more content not included)... [facility] PACU Record Summary Primary Physician: DAVID AWAD Finalized Date/Time: 03/02/21 13:11:26 Pt. Name: SNIGHZAINA D.O.B./Sex: 1950 MALE Med Rec #: [id number] Physician: DAVID AWAD Financial #: [id number] Pt. Type: D Room/Bed: [facility] Admit/Disch: 03/02/21 05:52:00 - Institution: PACU Case Times MAGR Entry 1 In PACU I 03/02/21 12:07:00 Discharge from PACU 03/02/21 12:58:00 I Last Modified By: Rosy Gaxiola RN 03/02/21 12:58:08 General Comments: Pt stable. VS stable. Pain level 8/10. Report given to LESLEY Velásquez at bedside. Finalized By: Rosy Gaxiola RN Document Signatures Signed By: Rosy Gaxiola RN 03/02/21 13:11 [facility] 0 03-02-2021 [facility] Preoperative Record MAG[facility] Pre-Op Record Summary Primary Physician: DAVID AWAD Finalized Date/Time: 03/02/21 08:24:03 Pt. Name: ZAINA WINTERS /Sex: 1950 MALE Med Rec #: [id number] Physician: DAVID AWAD Financial #: [id number] Pt. Type: D Room/Bed: / Admit/Disch: 03/02/21 [...] Signed By: Rita Molina RN 03/02/21 08:24 [facility] POCT Glucose Levelon 022 Glucose [Mass/Vol] 177 mg/dL High 74-118 [facility] Comment on above: Performed By: #### 4 [id number] #### [facility] (DEFAULT) [address] [place] [address] Glucose [Mass/Vol] 138 mg/dL High 74-118 [facility] Comment on above: Performed By: #### 4 [id number] ####[facility] (DEFAULT)[address] [place] [address] Patient Handouton 03-02-2021 Patient Handout POST OPERATIVE [...] #8 follow up in office with physician dental ceramist assistant Justo Redd as scheduled #9 NOMS [...] the nearest hospital's emergency services department. Normal [facility] XR Knee One or Two Views [...] MD 03/02/21 1:56 pm Technologist: Evelia ESCOBAR [facility] 2019 Novel Coronavirus (CoVI D-19), JULISSA LCon 03-01-2021 SARS-CoV-2 (COVID-19) RNA JULISSA+probe Ql (Unsp spec) Not detected Invalid Interpretation Code Not Detected [facility] Comment on above: Order Comment: [id number] Result Comment: This nucleic acid amplification test was developed and its performance characteristics determined by [employer]. Nucleic acid amplification tests include RT- PCR [...] detected) result in this assay. Performed At: [address] [id number] Zay Landa PhD Ph:[phone] Performed By: #### 1 [id number], [id number] #### [facility] (DEFAULT) [address] [place] [address] Progress Note - Nurseon 02-13 Progress Note - Nurse Pre-op call for 03-02-2021 surgery made- patient informed of arrival time of 0600 tomorrow ,NPO after midnight except for any medication that he was instructed to take in morning, hibiclens shower x2-patient with understanding. [Electronically Signed on: 03/01/2021 09:42 EST] Rita Molina RN [Verified on: 03/01/2021 09:42 EST] Rita Molina RN [facility] Progress Note - Nurseon 01-14 Progress Note - Nurse PAT review done per Dr. Mccauley, no orders received. [Electronically Signed on: 02/08/2021 10:37 EST] Oliva Rabago RN [Verified on: 02/08/2021 10:37 EST] Oliva Rabago RN [facility] .Auto Diff 02-04-2021 Auto Stearns % 10 % Normal 02-24 [facility] Comment on above: Performed By: #### 1 [id number], [id number], [id number] ####[facility] (DEFAULT)[address] [place] [address] Baso Abs# 0.0 x10 Normal 0.0-0.2 [facility] Comment on above: Performed By: #### 1 [id number], [id number], [id number] ####[facility] (DEFAULT)[address] [place] [address] Basophils/100 WBC (Bld) 0.3 % Normal 0.2-2.0 [facility] Comment on above: Performed By: #### 1 [id number], [id number], [id number] ####[facility] (DEFAULT)[address] [place] [address] 15303 Eos Abs# 0.1 x10 Normal 0.0-0.4 [facility] Comment on above: Performed By: #### 1 [id number], [id number], [id number] ####[facility] (DEFAULT)[address] [place] [address] 92820 Eosinophils/100 WBC (Bld) 1.1 % Normal 0.9-4.0 [facility] Comment on above: Performed By: #### 1 [id number], [id number], [id number] ####[facility] (DEFAULT)[address] [place] [address] 22797 Lymph Abs# 2.0 x10 Normal 1.3-2.9 [facility] Comment on above: Performed By: #### 1 [id number], [id number], [id number] ####[facility] (DEFAULT)[address] [place] [address] 37766 Lymphocytes/100 WBC (Bld) 27 % Normal 14-48 [facility] Comment on above: Performed By: #### 1 [id number], [id number], 9963230 ####[facility] (DEFAULT)[address] [place] [address] 44692 Stearns Abs# 0.7 x10 Normal 0.0-0.8 [facility] Comment on above: Performed By: #### 1 [id number], [id number], [id number] ####[facility] (DEFAULT)[address] [place] [address] 48212 Neut Abs# 4.5 x10 Normal 1.5-9.2 [facility] Comment on above: Performed By: #### 1 [id number], [id number], [id number] ####[facility] (DEFAULT)[address] [place] [address] 41717 Neutrophils/100 WBC (Bld) 62 % Normal 44-88 [facility] Comment on above: Performed By: #### 1 [id number], [id number], [id number] ####[facility] (DEFAULT)[address] [place] [address] [facility] Standardon 02-04-2021 eGFR Non AA >60 Invalid Interpretation Code [facility] Comment on above: Performed By: #### 1 [id number], [id number], [id number] ####[facility] (DEFAULT)[address] [place] [address] 77508 eGFR AA >60 Invalid Interpretation Code [facility] Comment on above: Result Comment: [employer] Representative korina Kidney disease could be indicated at eGFRs of less than 60 ml/min/1.73m2. Kidney Failure is indicated at less than 15 ml/min/1.73m2 Performed By: #### 1 [id number], [id number], [id number] ####[facility] (DEFAULT)[address] [place] [address] 30024 Anion gap [Moles/Vol] 14.0 mmol/L Normal 5.0-19.0 [facility] Comment on above: Performed By: #### 1 [id number], [id number], [id number] ####[facility] (DEFAULT)[address] [place] [address] 73076 Calcium [Mass/Vol] 9.5 mg/dL Normal 8.9-10.3 [facility] Comment on above: Performed By: #### 1 [id number], [id number], 7039911 ####[facility] (DEFAULT)[address] [place] [address] 15819 Chloride [Moles/Vol] 99 mmol/L Low 101-111 [facility] Comment on above: Performed By: #### 1 [id number], [id number], [id number] ####[facility] (DEFAULT)[address] [place] [address] 02765 CO2 [Moles/Vol] 28 mmol/L Normal 21-32 [facility] Comment on above: Performed By: #### 1 [id number], [id number], 4153925 ####[facility] (DEFAULT)[address] [place] [address] 41434 Creatinine [Mass/Vol] 0.89 mg/dL Low 0.90-1.30 [facility] Comment on above: Performed By: #### 1 [id number], [id number], 8959331 ####[facility] (DEFAULT)[address] [place] [address] 00204 Glucose [Mass/Vol] 135.0 mg/dL High 74.0-118.0 [facility] Comment on above: Performed By: #### 1 [id number], [id number], 9115874 ####[facility] (DEFAULT)[address] [place] [address] 32197 Osmolality 278 mOsm/L Invalid Interpretation Code [facility] Comment on above: Performed By: #### 1 [id number], [id number], 5334470 ####[facility] (DEFAULT)[address] [place] [address] 97893 Potassium [Moles/Vol] 4.1 mmol/L Normal 3.6-5.1 [facility] Comment on above: Performed By: #### 1 [id number], [id number], 5482781 ####[facility] (DEFAULT)[address] [place] [address] 74351 Sodium [Moles/Vol] 137.0 mmol/L Normal 136.0-144.0 [facility] Comment on above: Performed By: #### 1 [id number], [id number], 1844500 ####[facility] (DEFAULT)[address] [place] [address] 69589 Urea nitrogen [Mass/Vol] 19 mg/dL Normal 8-26 [facility] Comment on above: Performed By: #### 1 [id number], [id number], 6250082 ####[facility] (DEFAULT)[address] [place] [address] 95999 Urea nitrogen/Creatinine [Mass ratio] 21.0 mg/mg High 4.6-16.2 [facility] Comment on above: Performed By: #### 1 [id number], [id number], 7495253 ####[facility] (DEFAULT)[address] [place] [address] 90361 CBC w/ Auto Diffon 1 Erythrocyte distribution width (RBC) [Ratio] 13.4 % Normal 11.5-15.0 [facility] Comment on above: Performed By: #### 1 [id number], 03982606, 4569450 ####[facility] (DEFAULT)[address] [place] [address] Hematocrit (Bld) [Volume fraction] 48.0 % Normal 34.8-51.9 [facility] Comment on above: Performed By: #### 1 [id number], [id number], 5559726 ####[facility] (DEFAULT)[address] [place] [address] Hemoglobin (Bld) [Mass/Vol] 15.5 g/dL Normal 11.8-17.7 [facility] Comment on above: Performed By: #### 1 [id number], 56444084, 7117919 ####[facility] (DEFAULT)[address] [place] [address] Instr WBC 7.3 x10 Invalid Interpretation Code [facility] Comment on above: Performed By: #### 1 [id number], [id number], 2805787 ####[facility] (DEFAULT)[address] [place] [address] Man Diff? Auto Normal [facility] Comment on above: Performed By: #### 1 [id number], [id number], 2624848 ####[facility] (DEFAULT)[address] [place] [address] 65214 MCH (RBC) [Entitic mass] 30 pg Normal 24-34 [facility] Comment on above: Performed By: #### 1 [id number], 55411685, 0403500 ####[facility] (DEFAULT)[address] [place] [address] 43762 MCHC (RBC) [Mass/Vol] 32 g/dL Normal 26-37 [facility] Comment on above: Performed By: #### 1 [id number], [id number], 5403600 ####[facility] (DEFAULT)[address] [place] [address] 16510 MCV (RBC) [Entitic vol] 94 fL Normal 81-100 [facility] Comment on above: Performed By: #### 1 [id number], [id number], 5217625 ####[facility] (DEFAULT)[address] [place] [address] 53594 Platelet 196 x10 Normal 138-427 [facility] Comment on above: Performed By: #### 1 [id number], [id number], 3867293 ####[facility] (DEFAULT)[address] [place] [address] 09413 Platelet mean volume (Bld) [Entitic vol] 10.3 fL High 6.3-10.2 [facility] Comment on above: Performed By: #### 1 [id number], [id number], 0395290 ####[facility] (DEFAULT)[address] [place] [address] 11897 RBC 5.13 x10 Normal 3.70-5.30 [facility] Comment on above: Performed By: #### 1 [id number], [id number], 4903833 ####[facility] (DEFAULT)[address] [place] [address] 75690 WBC 7.3 x10 Normal 3.5-10.5 [facility] Comment on above: Performed By: #### 1 [id number], [id number], 0066577 ####[facility] (DEFAULT)[address] [place] [address] 55291 UA w Culture if Ind Standard on 02-04-2021 Breakpoint UA [facility] Comment on above: Performed By: #### 1 [id number] #### [facility] (DEFAULT) [address] [place] [address] 07854 Color (U) Yellow [facility] Comment on above: Performed By: #### 1 [id number] #### [facility] (DEFAULT) [address] [place] [address] 17845 Culture? No [facility] Comment on above: Result Comment: Resu lt created by rule GL_MAGR_ADD_UA_[id number] Result created by rule GL_MAGR_ADD_UA_CULT1 Performed By: #### 1 [id number] #### [facility] (DEFAULT) [address] [place] [address] 74261 Glucose (U) [Mass/Vol] Negative [facility] Comment on above: Performed By: #### 1 [id number] #### [facility] (DEFAULT) [address] [place] [address] 65590 Ketones Ql (U) Negative Normal [facility] Comment on above: Performed By: #### 1 [id number] #### [facility] (DEFAULT) [address] [place] [address] 85371 Micro? Not Indicated [facility] Comment on above: Result Comment: Resu lt created by rule GL_MAGR_ADD_UA_MICRO Performed By: #### 1 [id number] #### [facility] (DEFAULT) [address] [place] [address] 21133 UA Bilirubin Negative Normal [facility] Comment on above: Performed By: #### 1 [id number] #### [facility] (DEFAULT) [address] [place] [address] 73505 UA Blood Negative Normal NEGATIVE [facility] Comment on above: Performed By: #### 1 [id number] #### [facility] (DEFAULT) [address] [place] [address] 18093 UA Clarity CLEAR Normal CLEAR [facility] Comment on above: Performed By: #### 1 [id number] #### [facility] (DEFAULT) [address] [place] [address] 18678 UA Leuk Est Negative Normal NEGATIVE [facility] Comment on above: Performed By: #### 1 [id number] #### [facility] (DEFAULT) [address] [place] [address] 63013 UA Nitrite Negative Normal NEGATIVE [facility] Comment on above: Performed By: #### 1 [id number] #### [facility] (DEFAULT) [address] [place] [address] 00826 UA pH 6.0 Normal 5-8 [facility] Comment on above: Performed By: #### 1 [id number] #### [facility] (DEFAULT) [address] [place] [address] 73240 UA Protein Negative Normal NEGATIVE [facility] Comment on above: Performed By: #### 1 [id number] #### [facility] (DEFAULT) [address] [place] [address] 04585 UA Spec Grav >=1.030 Normal 1.001-1.035 [facility] Comment on above: Performed By: #### 1 [id number] #### [facility] (DEFAULT) [address] [place] [address] 98628 UA Urobilinogen 0.2 mg/dL Normal 0.2-1.0 [facility] Comment on above: Performed By: #### 1 [id number] #### [facility] (DEFAULT) [address] [place] [address] 03460 Urine Source Clean Catch [facility] Comment on above: Performed By: #### 1 [id number] #### [facility] (DEFAULT) [address] [place] [address] 90524 XR Bone Length Studies Scano [facility] 02-04-2021 XR Bone Length Studies Scanograms [...] MD 02/08/21 7:27 am Technologist: Abilio AMADOR [facility] Echo 2D w doppler w color co mpleteOrdered By: Ej Foster on 09-23-2020 [facility] Transthoracic Echocardiography Report (TTE) Patient Name HEBERLING Date of Study 09/23/2020 ZAINA Morales Date of 1950 Gender Male Age 69 year(s) Race Room Number Height: 72 inch, 182.88 cm Corporate ID [id number] Weight: 288 pounds, 130.6 kg # Patient Acct [id number] BSA: 2.49 m^2 BMI: 39.06 # kg/m^2 MR # [id number] Licensed Land Surveyor Debi Lopez Interpreting Physician Ej Foster Fellow Referring Nurse Practitioner Interpreting Referring Physician Ej Foster Type of Study TTE procedure:2D Echocardiogram, M-Mode, Doppler, Color Doppler. Procedure Date Date: 09/23/2020 Start: 11:32 AM Study Location: [facility] Indications:Atrial fibrillation. History / Tech. Comments: Naty [...] TR Velocity: 2.17 m/s Peak TR Gradient: 18.77892 mmHg Estimated RA Pressure: 3 mmHg Estimated PASP: 21.79 mmHg Diastology / Tissue Doppler Lateral Wall E' velocity:0.07 m/s Lateral Wall E/E':7.23 [facility] Work Phone: Shankar, pn Incoming Cardio Results From [facility] - 09/23/2020 5:27 PM EDT [facility] Transthoracic Echocardiography Report (TTE) Patient Name HEBERLING Date of Study 09/23/2020 ZAINA D Date of 1950 Gender Male Age 69 year(s) Race Room Number Height: 72 inch, 182.88 cm Corporate ID [id number] Weight: 288 pounds, 130.6 kg # Patient Acct [id number] BSA: 2.49 m^2 BMI: 39.06 # kg/m^2 MR # [id number] Licensed Land Surveyor JessicaDebi Interpreting Physician Ej Foster Fellow Referring Nurse Practitioner Interpreting Referring Physician Ej Foster Type of Study TTE procedure:2D Echocardiogram, M-Mode, Doppler, Color Doppler. Procedure Date Date: 09/23/2020 Start: 11:32 AM Study Location: [facility] Indications:Atrial fibrillation. History / Tech. Comments: A [...] TR Velocity: 2.17 m/s Peak TR Gradient: 18.42723 mmHg Estimated RA Pressure: 3 mmHg Estimated PASP: 21.79 mmHg Diastology / Tissue Doppler Lateral Wall E' velocity:0.07 m/s Lateral Wall E/E':7.23 [employer] Phone: [employer] Phone: Basic Metabolic Panelon - Anion gap [Moles/Vol] 10 mmol/L 9 - 17 mmol/L [place] Bun/Cre Ratio 21 [place] Calcium [Mass/Vol] 9.7 mg/dL 8.6 - 10. 4 mg/dL [place] Chloride [Moles/Vol] 101 mmol/L 98 - 10 7 mmol/L [place] CO2 [Moles/Vol] 28 mmol/L 20 - 31 mmol/L [place] Creatinine [Mass/Vol] 0.89 mg/dL 0.7 - 1.2 mg/dL [place] GFR >60 >60 mL/min [place] GFR Non- >60 >60 mL/min [place] Glucose [Mass/Vol] 101 mg/dL High 70 - 99 mg/dL [place], [place] Interpretation and review of laboratory results Abnormal [place] Potassium [Moles/Vol] 4.3 mmol/L 3.7 - 5.3 mmol/L [place] Sodium [Moles/Vol] 139 mmol/L 135 - 144 mmol/L [place] Urea nitrogen [Mass/Vol] 19 mg/dL 8 - 23 mg/dL [place] Lipid Panelon 03-10-2020 Cholesterol [Mass/Vol] 162 mg/dL <200 [place] Comment on above: Cholesterol Guidelines: <200 Desirable 200-240 Borderline >240 Undesirable Cholesterol in HDL [Mass/Vol] 41 mg/dL >40 [place] Comment on above: HDL Guidelines: <40 Undesirable 40-59 Borderline >59 Desirable Cholesterol in LDL [Mass/Vol] 102 mg/dL 0 - 130 mg/dL [place] Comment on above: LDL Guidelines: <100 Desirable 100-129 Near to/above Desirable 130-159 Borderline >159 Undesirable Direct (measured) LDL and calculated LDL are not interchangeable tests. Cholesterol in VLDL [Mass/Vol] NOT REPORTED 1 - 30 mg/dL [place] Cholesterol.total/Ch olesterol in HDL [Mass ratio] 4 {ratio} <5 [place] Triglyceride [Mass/Vol] 97 mg/dL <150 [place] Comment on above: Triglyceride Guidelines: <150 Desirable 150-199 Borderline 200-499 High >499 Very high Based on AHA Guidelines for fasting triglyceride, November 2011. Metabolic Panelon 03-10-2020 GFR/1.73 sq M predicted among non-blacks MDRD (S/P/Bld) [Vol rate/Area] [place] Comment on above: Stage 1: Some [...] body mass. Additional eGFR calculator available at: http://www.[employer]/multiple_crcl_2012.htm Basic Metabolic Panelon 12-0 Anion gap [Moles/Vol] 9 mmol/L 9 - 17 mmol/L [place] Bun/Cre Ratio 16 [place] Calcium [Mass/Vol] 9.6 mg/dL 8.6 - 10. 4 mg/dL [place] Chloride [Moles/Vol] 101 mmol/L 98 - 10 7 mmol/L [place] CO2 [Moles/Vol] 29 mmol/L 20 - 31 mmol/L [place] Creatinine [Mass/Vol] 0.76 mg/dL 0.7 - 1.2 mg/dL [place] GFR >60 >60 mL/min [place] GFR Non- >60 >60 mL/min [place] Glucose [Mass/Vol] 118 mg/dL High 70 - 99 mg/dL [place] Interpretation and review of laboratory results Abnormal [place] Potassium [Moles/Vol] 4.7 mmol/L 3.7 - 5.3 mmol/L [place] Sodium [Moles/Vol] 139 mmol/L 135 - 144 mmol/L [place] Urea nitrogen [Mass/Vol] 12 mg/dL 8 - 23 mg/dL [place] CBCon 01-22-2020 Erythrocyte distribution width (RBC) [Ratio] 14.2 % 11.8 - 14.4 % [place] Hematocrit (Bld) [Volume fraction] 43.4 % 40.7 - 50.3 % [place] Hemoglobin (Bld) [Mass/Vol] 13.4 g/dL 13 - 17 g/dL [place] MCH (RBC) [Entitic mass] 28.9 pg 25.2 - 33.5 pg [place] MCHC (RBC) [Mass/Vol] 30.9 g/dL 28.4 - 34.8 g/dL [place] MCV (RBC) [Entitic vol] 93.7 fL 82.6 - 102.9 fL [place] Platelet mean volume (Bld) [Entitic vol] 9.9 fL 8.1 - 13.5 fL [place] Platelets (Bld) [#/Vol] 217 10*3/uL [place] RBC (Bld) [#/Vol] 4.63 10*6/uL 4.21 - 5.7 7 m/uL [place] WBC (Bld) [#/Vol] 0.0 10*3/uL 0.0 per 10 0 WBC [place] WBC (Bld) [#/Vol] 5.7 10*3/uL [place] ECHO Complete 2D W Doppler W Coloron 01-22-2020 [facility] Transthoracic Echocardiography Report (TTE) Patient Name HEBERLING Date of Study 01/22/2020 ZAINA Morales Date of 1950 Gender Male Age 69 year(s) Race Room Number Height: 73 inch, 185.42 cm Corporate ID [id number] Weight: 273 pounds, 123.8 kg # Patient Acct [id number] BSA: 2.46 m^2 BMI: 36.02 # kg/m^2 MR # [id number] Licensed Land Surveyor Nini Todd Interpreting Physician Ej Foster Fellow Referring Nurse Practitioner Interpreting Referring Physician Ej Foster Type of Study TTE procedure:2D Echocardiogram, M-Mode, Doppler, Color Doppler. Procedure Date Date: 01/22/2020 Start: 09:22 AM Study Location: [facility] Indications:Atrial fibrillation, Dyspnea/SOB and History of COVID-19. [...] Wall E' velocity:0.11 m/s Lateral Wall E/E':6.91 [facility], [place] Shankar, Abdirahman Incoming Cardio Results From [facility]/ - 01/22/2020 5:08 PM EST [facility] Transthoracic Echocardiography Report (TTE) Patient Name HEBERLING Date of Study 01/22/2020 ZAINA Morales Date of 1950 Gender Male Age 69 year(s) Race Room Number Height: 73 inch, 185.42 cm Corporate ID [id number] Weight: 273 pounds, 123.8 kg # Patient Acct [id number] BSA: 2.46 m^2 BMI: 36.02 # kg/m^2 MR # [id number] Licensed Land Surveyor Work,Nini Interpreting Physician Ej Foster Fellow Referring Nurse Practitioner Interpreting Referring Physician Ej Foster Fellow Type of Study TTE procedure:2D Echocardiogram, M-Mode, Doppler, Color Doppler. Procedure Date Date: 01/22/2020 Start: 09:22 AM Study Location: [facility] Indications:Atrial fibrillation, Dyspnea/SOB and History of COVID-19. [...] Wall E' velocity:0.11 m/s Lateral Wall E/E':6.91 [place] Hemoglobin A1Con 01-22-2020 Glucose [Mass/Vol] 123 mg/dL [place] Comment on above: The ADA and AACC rec ommend providing the estimated average glucose result to permit better patient understanding of their HBA1c result. HbA1c (Bld) [Mass fraction] 5.9 % 4 - 6 % [place] Metabolic Panelon 01-22-2020 GFR/1.73 sq M predicted among non-blacks MDRD (S/P/Bld) [Vol rate/Area] [place] Comment on above: Stage 1: Some [...] body mass. Additional eGFR calculator available at: http://www.[employer]/multiple_crcl_2012.htm Troponin Ion 01-22-2020 Troponin I.cardiac [Mass/Vol] NOT REPORTED [place] Troponin T.cardiac [Mass/Vol] NOT REPORTED <0.03 ng/mL [place] Troponin, High Sensitivity 15 ng/L 0 - 22 ng/L [place] Comment on above: High Sensitivity Troponin values cannot be compared with other Troponin methodologies. Patients with high levels of Biotin oral intake (i.e >5mg/day) may have falsely decreased Troponin levels. Samples collected within 8 hours of biotin intake may require additional information for diagnosis. BNPon 12-16-2019 Natriuretic peptide B (Bld) [Mass/Vol] 595.0 pg/mL Normal <=900.0 [facility] Comment on above: Performed By: #### T ROP, BNP, CMP, CRP #### [facility] [address] [place], [place] [address] Cheryl Srinivasan CBC AUTO DIFFon 12-16-2019 Basophils (Bld) [#/Vol] 0.0 103/ul Normal 0.0-0.1 [facility] Comment on above: Performed By: #### C BC #### [facility] [address] [place] [id number] Cheryl Zarina Basophils/100 WBC (Bld) 0.1 % Critically low 0.2-2.0 [facility] Comment on above: Performed By: #### C BC #### [facility] [address] [place], [place] [id number] Cheryl Zarina Eosinophils (Bld) [#/Vol] 0.0 103/ul Normal 0.0-0.7 [facility] Comment on above: Performed By: #### C BC #### [facility] [address] [place], [place] [address] Cheryl Zarina Eosinophils/100 WBC (Bld) 0.0 % Critically low 0.9-7.0 [facility] Comment on above: Performed By: #### C BC #### [facility] [address] [place] [address] Cheryl Zarina Erythrocyte distribution width (RBC) [Ratio] 12.9 % Normal 11.0-15.0 [facility] Comment on above: Performed By: #### C BC #### [facility] [address] [place], [place] [id number] Cheryl Zarina Hematocrit (Bld) [Volume fraction] 45.2 % Normal 42.0-54.0 [facility] Comment on above: Performed By: #### C BC #### [facility] [address] [place], [place] [address] Cheryl Zarina Hemoglobin (Bld) [Mass/Vol] 15.1 g/dL Normal 14.0-18.0 [facility] Comment on above: Performed By: #### C BC #### [facility] [address] [place], [place] [address] Cheryl Zarina IG # 0.06 10e3/ul Critically high 0.00-0.03 [facility] Comment on above: Performed By: #### C BC #### [facility] [address] [place], [place] [address] Cheryl Zarina IG % 0.6 % Critically high 0.0-0.5 [facility] Comment on above: Performed By: #### C BC #### [facility] [address] [place] [address] Cheryl Zarina Lymphocytes (Bld) [#/Vol] 1.0 103/ul Critically low 1.2-3.8 [facility] Comment on above: Performed By: #### C BC #### [facility] [address] [place], [place] [address] Cheryl Zarina Lymphocytes/100 WBC (Bld) 10.1 % Critically low 20.5-60.0 [facility] Comment on above: Performed By: #### C BC #### [facility] [address] [place], [place] [address] Cheryl Zarina MANUAL DIFF REQ NO Normal [facility] Comment on above: Performed By: #### C BC #### [facility] [address] [place], [place] [id number] Cheryl Zarina MCH (RBC) [Entitic mass] 30.0 pg Normal 25.9-34.0 [facility] Comment on above: Performed By: #### C BC #### [facility] [address] [place] [address] Cheryl Zarina MCHC (RBC) [Mass/Vol] 33.4 g/dL Normal 29.9-35.2 [facility] Comment on above: Performed By: #### C BC #### [facility] [address] [place], [place] [address] Cheryl Zarina MCV (RBC) [Entitic vol] 89.7 fL Normal 80.0-94.0 [facility] Comment on above: Performed By: #### C BC #### [facility] [address] [place], [place] [address] Cheryl Zarina Monocytes (Bld) [#/Vol] 0.3 103/ul Normal 0.3-0.8 [facility] Comment on above: Performed By: #### C BC #### [facility] [address] [place], [place] [address] Cheryl Zarina Monocytes/100 WBC (Bld) 3.4 % Normal 1.7-12.0 [facility] Comment on above: Performed By: #### C BC #### [facility] [address] [place] [id number] Cheryl Zarina Neutrophils (Bld) [#/Vol] 8.3 103/ul Critically high 1.4-6.5 [facility] Comment on above: Performed By: #### C BC #### [facility] [address] [place], [place] [address] Cheryl Zarina Neutrophils/100 WBC (Bld) 85.8 % Critically high 43.0-75.0 [facility] Comment on above: Performed By: #### C BC #### [facility] [address] [place], [place] [address] Cheryl Zarina Platelet mean volume (Bld) [Entitic vol] 9.7 fL Normal 9.5-13.5 [facility] Comment on above: Performed By: #### C BC #### [facility] [address] [place], [place] [address] Cheryl Zarina Platelets (Bld) [#/Vol] 270 103/ul Normal 150-450 [facility] Comment on above: Performed By: #### C BC #### [facility] [address] [place], [place] [address] Cheryl Zarina RBC (Bld) [#/Vol] 5.04 106/ul Normal 4.70-6.10 [facility] Comment on above: Performed By: #### C BC #### [facility] [address] [place], [place] [address] Cheryl Zarina WBC (Bld) [#/Vol] 9.7 103/ul Normal 4.0-11.0 [facility] Comment on above: Performed By: #### C BC #### [facility] [address] [place], [place] [address] Cheryl Zarina CRPon 12-16-2019 CRP [Mass/Vol] 12.3 mg/dL Critically high <=1.0 [facility] Comment on above: Performed By: #### C BC #### [facility] [address] [place], [place] [address] Cheryl Zarina CTA CHEST WO W CONon [...] RUPESH ULRICH Date: 2019-12-16 05:43 Normal [facility] D-DIMERon 12-16-2019 D-DIMER COMMENTS SEE BELOW Normal [facility] Comment on above: Result Comment: [...] By: #### D DIM, PT, PTT #### [facility] [address] [place], [place] [address] Cheryl Srinivasan Fibrin D-dimer FEU IA (Bld) [Mass/Vol] 0.84 ug/mL Critically high 0.19-0.50 [facility] Comment on above: Result Comment: test repeated critcal value verified Performed By: #### D DIM, PT, PTT #### [facility] [address] [place], [place] [address] Cheryl Srinivasan LACTATE/LACTIC ACIDon 2019 Lactate [Moles/Vol] 1.8 mmol/L Normal 0.7-2.0 [facility] Comment on above: Performed By: #### L ACT #### [facility] [address] [place] [id number] Cheryl Srinivasan PROF 14(COMP METB)on 020 Albumin [Mass/Vol] 3.2 g/dL Critically low 3.5-5.0 [facility] Comment on above: Performed By: #### T ROP, BNP, CMP, CRP #### [facility] [address] [place] [id number] Cheryljason Srinivasan Albumin/Globulin [Mass ratio] 0.8 {ratio} Normal [facility] Comment on above: Performed By: #### T ROP, BNP, CMP, CRP #### [facility] [address] [place], [place] [id number] Cheryl Zarina ALP [Catalytic activity/Vol] 85 U/L Normal 38-126 [facility] Comment on above: Performed By: #### T ROP, BNP, CMP, CRP #### [facility] [address] [place], [place] [id number] Cheryl Zarina ALT [Catalytic activity/Vol] 63 U/L Normal 21-72 [facility] Comment on above: Performed By: #### T ROP, BNP, CMP, CRP #### [facility] [address] [place] [id number] Cheryl Zarina Anion gap [Moles/Vol] 14.2 mmol/L Normal [facility] Comment on above: Performed By: #### T ROP, BNP, CMP, CRP #### [facility] [address] [place], [place] [id number] Cheryl Zarina AST [Catalytic activity/Vol] 53 U/L Normal 17-59 [facility] Comment on above: Performed By: #### T ROP, BNP, CMP, CRP #### [facility] [address] [place], [place] [id number] Cheryl Zarina Bilirubin Ql (U) 1.0 mg/dL Normal 0.2-1.3 [facility] Comment on above: Performed By: #### T ROP, BNP, CMP, CRP #### [facility] [address] [place] [address] Cheryl Zarina Calcium [Mass/Vol] 9.0 mg/dL Normal 8.4-10.2 [facility] Comment on above: Performed By: #### T ROP, BNP, CMP, CRP #### [facility] [address] [place] [address] Cheryl Zarina Chloride [Moles/Vol] 96 mmol/L Critically low 98-107 [facility] Comment on above: Performed By: #### T ROP, BNP, CMP, CRP #### [facility] [address] [place] [address] Cheryl Zarina CO2 [Moles/Vol] 25.8 mmol/L Normal 22.0-30.0 [facility] Comment on above: Performed By: #### T ROP, BNP, CMP, CRP #### [facility] [address] [place] [address] Cheryl Zarina Creatinine [Mass/Vol] 0.90 mg/dL Normal 0.66-1.25 [facility] Comment on above: Performed By: #### T ROP, BNP, CMP, CRP #### [facility] [address] [place] [address] Cheryl Zarina EGFR-AF GUINEAN >60 Normal >=60 [facility] Comment on above: Performed By: #### T ROP, BNP, CMP, CRP #### [facility] [address] [place] [address] Cheryl Zarina EGFR-NON AF GUINEAN >60 Normal >=60 [facility] Comment on above: Performed By: #### T ROP, BNP, CMP, CRP #### [facility] [address] [place] [address] Cheryl Zarina Globulin (S) [Mass/Vol] 4.1 g/dL Normal [facility] Comment on above: Performed By: #### T ROP, BNP, CMP, CRP #### [facility] [address] [place] [address] Cheryl Zarina Glucose [Mass/Vol] 146 mg/dL Critically high 74-106 [facility] Comment on above: Performed By: #### T ROP, BNP, CMP, CRP #### [facility] [address] [place] [address] Cheryl Zarina Potassium [Moles/Vol] 4.0 mmol/L Normal 3.4-5.0 [facility] Comment on above: Performed By: #### T ROP, BNP, CMP, CRP #### [facility] [address] [place] [address] Cheryl Zarina Protein [Mass/Vol] 7.3 g/dL Normal 6.1-8.2 [facility] Comment on above: Performed By: #### T ROP, BNP, CMP, CRP #### [facility] [address] [place] [address] Cheryl Zarina Sodium [Moles/Vol] 132 mmol/L Critically low 137-145 [facility] Comment on above: Performed By: #### T ROP, BNP, CMP, CRP #### [facility] [address] [place] [address] Cheryl Zarina Urea nitrogen [Mass/Vol] 18.0 mg/dL Normal 9.0-20.0 [facility] Comment on above: Performed By: #### T ROP, BNP, CMP, CRP #### [facility] [address] [place] [address] Cheryl Zarina Urea nitrogen/Creatinine [Mass ratio] 20.0 mg/mg Normal [facility] Comment on above: Performed By: #### T ROP, BNP, CMP, CRP #### [facility] [address] [place] [address] Cheryl Zarina PROTIMEon 12-16-2019 INR Coag (PPP) [Relative time] 0.97 {INR} Normal [facility] Comment on above: Performed By: #### D DIM, PT, PTT #### [facility] [address] [place] [address] Cheryl Zarina PT Coag (PPP) [Time] PLEASE NOTE: NORMAL RANGE CHANGE 10-31-2013 DUE TO REAGENT LOT CHANGE Normal [facility] Comment on above: Performed By: #### D DIM, PT, PTT #### [facility] [address] [place], [place] [address] Cheryl Srinivasan PT Coag (PPP) [Time] 10.3 s Normal 9.0-11.6 [facility] Comment on above: Performed By: #### D DIM, PT, PTT #### [facility] [address] [place], [place] [address] Cheryljason Srinivasan PT Coag (PPP) [Time] SEE BELOW Normal [facility] Comment on above: Result Comment: CHEMO RED INR: 2.0 - 3.0 CONDITIONS NOT LISTED BELOW 2.5 - 3.5 FOR PROSTHETIC HEART VALVE REPLACEMENT 2.5 - 3.5 RECURRENT THROMBOSIS Performed By: #### D DIM, PT, PTT #### [facility] [address] [place], [place] [id number] Cheryl Srinivasan PTTon 12-16-2019 aPTT Coag (Bld) [Time] PLEASE NOTE: NORMAL RANGE CHANGE 01-07-2015 DUE TO REAGENT LOT CHANGE Normal [facility] Comment on above: Performed By: #### D DIM, PT, PTT #### [facility] [address] [place] [address] Cheryl Srinivasan aPTT Coag (Bld) [Time] 26.0 s Normal 22.3-36.2 [facility] Comment on above: Performed By: #### D DIM, PT, PTT #### [facility] [address] [place] [id number] Cheryl Srinivasan Rapid Covid-19 PCRon 020 [employer] LDT Info SEE BELOW Normal [facility] Comment on above: Result Comment: This test is not yet approved or cleared by the [place] Food and Drug Administration (FDA) . This test was developed by [employer] [place]. The performance characteristics of this test were validated by [facility]. The results are not intended to be used as the sole means for clinical diagnosis or patient management decisions. [facility] is authorized under Clinical Laboratory Improvement Amendments (CLIA) to perform high-complexity testing. When diagnostic testing is negative, the possibility of a false negative should be considered in the context of a patients recent exposures and the presence of clinical signs and symptoms consistent with SARS-CoV-2. Performed By: #### C VDRPD #### [facility] [address] [place] [address] Cheryl Srinivasan SARS-CoV-2 DETECTED NOT DETECTED [facility] Comment on above: Result Comment: . Performed By: #### C VDRPD #### [facility] [address] [place], [place] [id number] Cheryl Srinivasan TROPONIN - Ion 12-16-2019 Troponin I.cardiac [Mass/Vol] ng/mL Normal <=0.034 [facility] Comment on above: Performed By: #### C BC #### [facility] [address] [place] [address] Cheryl Srinivasan Troponin I.cardiac [Mass/Vol] SEE BELOW Normal [facility] Comment on above: Result Comment: <0.0 34 ng/ml NEGATIVE 0.034-0.119 INDETERMINATE 0.120 AMI CUT OFF Performed By: #### C BC #### [facility] [address] [place], [place] [id number] Cheryl Srinivasan Vital Signs Date Time Vital Sign Value Performing Clinician Ekta bland 09-18-2024 12:54-0400 Body height 181.6 cm Kenia Cordonayush [employer]LL[employer] PROCESSOR Work Phone: [facility] 09-18-2024 12:54-0400 Body mass index (BMI) [Ratio] 42.08 kg/m2 Kenia Cordonayush [employer]OPELLANT PROCESSOR Work Phone: [facility] 09-18-2024 12:54-0400 Body weight 138.8 kg Kenia Cordonayush [employer] PROPELLANT PROCESSOR Work Phone: [facility] 09-18-2024 12:54-0400 Diastolic blood pressure 78 mm[Hg] Kenia Cordonayush SOLID PROPELLANT PROCESSOR Work Phone: [facility] 09-18-2024 12:54-0400 Heart rate 78 /min Kenia Jonathan [employer]OPELLANT PROCESSOR Work Phone: [facility] 09-18-2024 12:54-0400 Respiratory rate 18 /min Kenia Jonathan [employer] PROPELLANT PROCESSOR Work Phone: [facility] 09-18-2024 12:54-0400 SaO2% (BldA) [Mass fraction] 98 % Kenia Castillo [employer]OPELLANT PROCESSOR Work Phone: [facility] 09-18-2024 12:54-0400 Systolic blood pressure 130 mm[Hg] Kenia Castillo [employer]OPELLANT PROCESSOR Work Phone: [facility] 09-03-2024 12:54-0400 Body height 181.6 cm Arianna Lou DPM Work Phone: [facility] 09-03-2024 12:54-0400 Body mass index (BMI) [Ratio] 43.51 kg/m2 Arianna Lou DPM Work Phone: [facility] 09-03-2024 12:54-0400 Body weight 143.52 kg Arianna Lou DPM Work Phone: [facility] 07-09-2024 13:53-0400 Body height 181.6 cm Kenia Castillo [employer]OPELLANT PROCESSOR Work Phone: [facility] 07-09-2024 13:53-0400 Body mass index (BMI) [Ratio] 43.51 kg/m2 Kenia Castillo [employer]OPELLANT PROCESSOR Work Phone: [facility] 07-09-2024 13:53-0400 Body weight 143.52 kg Kenia Castillo SOL[employer] PROPELLANT PROCESSOR Work Phone: [facility] 07-09-2024 13:53-0400 Diastolic blood pressure 72 mm[Hg] Kenia Castillo SOLID PROPELLANT PROCESSOR Work Phone: [facility] 07-09-2024 13:53-0400 Heart rate 61 /min Kenia Castillo [employer] PROPELLANT PROCESSOR Work Phone: [facility] 07-09-2024 13:53-0400 SaO2% (BldA) [Mass fraction] 96 % Kenia Castillo [employer]ID PROPELLANT PROCESSOR Work Phone: [facility] 07-09-2024 13:53-0400 Systolic blood pressure 124 mm[Hg] Kenia Castillo SOLID PROPELLANT PROCESSOR Work Phone: [facility] 05-20-2024 13:54-0400 Body height 181.6 cm Kenia Castillo SOLID PROPELLANT PROCESSOR Work Phone: [facility] 05-20-2024 13:54-0400 Body mass index (BMI) [Ratio] 42.69 kg/m2 Kenia Castillo [employer]OPELLANT PROCESSOR Work Phone: [facility] 05-20-2024 13:54-0400 Body temperature 98.91 [degF] Kenia Castillo SOLID PROPELLANT PROCESSOR Work Phone: [facility] 05-20-2024 13:54-0400 Body weight 140.8 kg Kenia Castillo SOLID PROPELLANT PROCESSOR Work Phone: [facility] 05-20-2024 13:54-0400 Diastolic blood pressure 64 mm[Hg] Kenia Castillo SOLID PROPELLANT PROCESSOR Work Phone: [facility] 05-20-2024 13:54-0400 Heart rate 68 /min Kenia Castillo [employer]ID PROPELLANT PROCESSOR Work Phone: [facility] 05-20-2024 13:54-0400 SaO2% (BldA) [Mass fraction] 94 % Kenia Castillo SOLID PROPELLANT PROCESSOR Work Phone: [facility] 05-20-2024 13:54-0400 Systolic blood pressure 126 mm[Hg] Kenia Castillo SOLID PROPELLANT PROCESSOR Work Phone: [facility] 02-23-2024 12:30-0500 Diastolic blood pressure 97 mm[Hg] Ej Foster MD Work Phone: [facility] 02-23-2024 12:30-0500 Heart rate 57 /min Ej Foster MD Work Phone: [facility] 02-23-2024 12:30-0500 Respiratory rate 17 /min Ej Foster MD Work Phone: [facility] 02-23-2024 12:30-0500 SaO2% (BldA) [Mass fraction] 96 % Ej Foster MD Work Phone: [facility] 02-23-2024 12:30-0500 Systolic blood pressure 131 mm[Hg] Ej Foster MD Work Phone: [facility] [place] 02-23-2024 12:11-0500 Body temperature 96.8 [degF] E[facility] Foster [facility] 02-20-2024 14:13-0500 Body height 181.6 cm Kenia Castillo SOLID PROPELLANT PROCESSOR Work Phone: [facility] 02-20-2024 14:13-0500 Body mass index (BMI) [Ratio] 43.07 kg/m2 Kenia Castillo [employer] PROPELLANT PROCESSOR Work Phone: [facility] 02-20-2024 14:13-0500 Body weight 142.07 kg Kenia Castillo SOLID PROPELLANT PROCESSOR Work Phone: [facility] 02-20-2024 14:13-0500 Diastolic blood pressure 60 mm[Hg] Kenia Castillo SOLID PROPELLANT PROCESSOR Work Phone: [facility] 02-20-2024 14:13-0500 Heart rate 98 /min Kenia Castillo [employer] PROPELLANT PROCESSOR Work Phone: [facility] 02-20-2024 14:13-0500 SaO2% (BldA) [Mass fraction] 95 % Kenia Castillo SOLID PROPELLANT PROCESSOR Work Phone: [facility] 02-20-2024 14:13-0500 Systolic blood pressure 120 mm[Hg] Kenia Castillo SOLID PROPELLANT PROCESSOR Work Phone: [facility] 02-05-2024 14:54-0500 Body height 182.9 cm Mth 1 [employer] 02-05-2024 14:54-0500 Body mass index (BMI) [Ratio] 41.88 kg/m2 Mth 1 [facility] [place] 02-05-2024 14:54-0500 Body weight 140.1 kg Mth 1 [facility] [employer] 02-05-2024 14:54-0500 Diastolic blood pressure 77 mm[Hg] Mth 1 [facility] [place] 02-05-2024 14:54-0500 Systolic blood pressure 120 mm[Hg] Mth 1 [facility] [place] 12-26-2023 13:04-0500 Body mass index (BMI) [Ratio] 38.92 kg/m2 Jeannine Moseleyk SOLID PROPELLANT PROCESSOR Work Phone: [facility] 12-26-2023 13:04-0500 Body temperature 97.39 [degF] Jeannine Blanchardtrick SOLID PROPELLANT PROCESSOR Work Phone: [facility] 12-26-2023 13:04-0500 Body weight 133.81 kg Jeannine Moseleyk SOLID PROPELLANT PROCESSOR Work Phone: [facility] 12-26-2023 13:04-0500 Diastolic blood pressure 74 mm[Hg] Jeannine Blanchardtrick SOLID PROPELLANT PROCESSOR Work Phone: [facility] 12-26-2023 13:04-0500 Systolic blood pressure 160 mm[Hg] Jeannine Blanchardtrick SOLID PROPELLANT PROCESSOR Work Phone: [facility] 11-15-2023 12:53-0400 Body height 185.4 cm Arianna Kendall DPM Work Phone: [facility] 11-15-2023 12:53-0400 Body mass index (BMI) [Ratio] 40.13 kg/m2 Arianna Lou DPM Work Phone: [facility] 11-15-2023 12:53-0400 Body weight 137.98 kg Arianna Lou DPM Work Phone: [facility] 10-11-2023 08:58-0400 Body mass index (BMI) [Ratio] 40.13 kg/m2 Kenia Cordonjaredfito SOLID PROPELLANT PROCESSOR Work Phone: [facility] 10-11-2023 08:58-0400 Body temperature 96.69 [degF] Kenia Castillo SOLID PROPELLANT PROCESSOR Work Phone: [facility] 10-11-2023 08:58-0400 Body weight 137.98 kg Kenia Castillo SOLID PROPELLANT PROCESSOR Work Phone: [facility] 10-11-2023 08:58-0400 Diastolic blood pressure 86 mm[Hg] Kenia Castillo SOLID PROPELLANT PROCESSOR Work Phone: [facility] 10-11-2023 08:58-0400 Heart rate 67 /min Kenia Castillo SOLID PROPELLANT PROCESSOR Work Phone: [facility] 10-11-2023 08:58-0400 SaO2% (BldA) [Mass fraction] 95 % Kenia Castillo SOLID PROPELLANT PROCESSOR Work Phone: [facility] 10-11-2023 08:58-0400 Systolic blood pressure 132 mm[Hg] Kenia Castillo SOLID PROPELLANT PROCESSOR Work Phone: [facility] 02-12-2020 09:31-0500 Pulse Oximetry 98 % [facility] [place] 02-12-2020 09:30-0500 BP Diastolic 73 mm[Hg] [facility] [place] 02-12-2020 09:30-0500 BP Systolic 135 mm[Hg] [facility] [place] 02-12-2020 09:30-0500 Pulse (Heart Rate) 56 /min [facility] [place] 02-12-2020 09:30-0500 Respiratory Rate 22 /min [facility], [place] 02-12-2020 07:14-0500 BMI (Body Mass Index) 36.89 kg/m2 [facility] [place] 02-12-2020 07:14-0500 Body weight 123.38 kg [facility] [place] 02-12-2020 07:14-0500 Height 182.9 cm [facility] [place] Encounters Encounter Date Encounter Type Care Provider Facility Start: 10-07-2024 End: 10-07-2024 ambulatory Mony Sharpe [employer] RO[employer] ATTENDANT [facility] Comment on above: Spinal stenosis, lum bar region with neurogenic claudication (Primary Dx); Bilateral leg weakness; Left thigh pain Start: 10-07-2024 End: 10-07-2024 Bamboo flowsheet Mony Sharpe [employer] ROOM ATTENDANT [facility] Start: 10-07-2024 End: 10-07-2024 Bamboo flowsheet Mony Sharpe [employer] RO[employer] ATTENDANT [facility] Start: 2024 End: 2024 Bamboo flowsheet Maddie Kelbley CLUB ROOM ATTENDANT [facility] Start: 2024 End: 2024 Bamboo flowsheet Maddie Sandersy [employer] ROOM ATTENDANT [facility] Start: 2024 End: 2024 ambulatory Maddie Sandersy [employer]UB ROOM ATTENDANT [facility] Comment on above: Spinal stenosis, lum bar region with neurogenic claudication (Primary Dx); Bilateral leg weakness; Left thigh pain Start: 09-26-2024 End: 09-26-2024 ambulatory Maddie Sandersy [employer]UB ROOM ATTENDANT [facility] Comment on above: Spinal stenosis, lum bar region with neurogenic claudication (Primary Dx); Bilateral leg weakness; Left thigh pain Start: 09-26-2024 End: 09-26-2024 Bamboo flowsheet Maddie Sandersy [employer] ROOM ATTENDANT [facility] Start: 09-26-2024 End: 09-26-2024 Bamboo flowsheet Maddie Sandersy [employer]UB ROOM ATTENDANT [facility] Start: 09-23-2024 End: 09-23-2024 ambulatory Maddie Sandersy [employer] RO[employer] ATTENDANT [facility] Comment on above: Spinal stenosis, lum bar region with neurogenic claudication (Primary Dx); Bilateral leg weakness; Left thigh pain Start: 09-23-2024 End: 09-23-2024 Bamboo flowsheet Maddie Sandersy [employer]UB ROOM ATTENDANT [facility] Start: 09-23-2024 End: 09-23-2024 Bamboo flowsheet Maddie Sandersy [employer] ROOM ATTENDANT [facility] Start: 09-19-2024 End: 09-19-2024 Bamboo flowsheet Mony Brink [employer] ROOM ATTENDANT [facility] Start: 09-19-2024 End: 09-19-2024 Bamboo flowsheet Mony Brink [employer] ROOM ATTENDANT [facility] Start: 09-19-2024 End: 09-19-2024 ambulatory Mony Brink [employer] RO[employer] ATTENDANT [facility] Comment on above: Spinal stenosis, lum bar region with neurogenic claudication (Primary Dx); Bilateral leg weakness; Left thigh pain Start: 09-18-2024 End: 09-18-2024 Bamboo flowsheet Kenia Castillo NP Work Phone: [facility] Start: 09-18-2024 End: 09-18-2024 Bamboo flowsheet Kenia Castillo [employer]OPELLANT PROCESSOR Work Phone: [facility] Start: 09-18-2024 End: 09-18-2024 Office outpatient visit 25 minutes Kenia Castillo [employer]OPELLANT PROCESSOR Work Phone: [facility] Comment on above: Primary hypertension (Primary Dx); Type 2 diabetes mellitus with diabetic peripheral angiopathy without gangrene, without long-term current use of insulin (HCC); Benign prostatic hyperplasia with lower urinary tract symptoms, symptom details unspecified; Paroxysmal atrial fibrillation (HCC); Morbid (severe) obesity due to excess calories ([facility]) Start: 09-18-2024 End: 09-18-2024 ambulatory KENIA JONATHAN Not Available Start: 09-16-2024 End: 09-16-2024 ambulatory Mony Brink [employer] RO[employer] ATTENDANT [facility] Comment on above: Spinal stenosis, lum bar region with neurogenic claudication (Primary Dx); Bilateral leg weakness; Left thigh pain Start: 09-16-2024 End: 09-16-2024 Bamboo flowsheet Mony Brink [employer] ROOM ATTENDANT [facility] Start: 09-16-2024 End: 09-16-2024 Bamboo flowsheet Mony Brink [employer] ROOM ATTENDANT [facility] Start: 09-09-2024 End: 09-09-2024 ambulatory Maddie Kelbley [employer] RO[employer] ATTENDANT [facility] Comment on above: Spinal stenosis, lum bar region with neurogenic claudication (Primary Dx); Bilateral leg weakness Start: 09-09-2024 End: 09-09-2024 Bamboo flowsheet Maddie Kelbley [employer]UB ROOM ATTENDANT [facility] Start: 09-09-2024 End: 09-09-2024 Bamboo flowsheet Maddie Kelbley [employer] ROOM ATTENDANT [facility] Start: 09-03-2024 End: 09-03-2024 Bamboo flowsheet Arianna Lou DPM Work Phone: [facility] Start: 09-03-2024 End: 09-03-2024 Bamboo flowsheet Arianna Lou DPM Work Phone: [facility] Start: 09-03-2024 End: 09-03-2024 Patient encounter procedure Arianna Lou DPM Work Phone: [facility] Comment on above: Dermatophytosis of n [...] 08-05-2024 End: 08-05-2024 ambulatory Ever Guillen MD Facility:[facility] Start: 07-23-2024 End: 07-24-2024 Follow-up encounter Kenia Castillo NP Work Phone: [facility] Start: 07-23-2024 End: 07-23-2024 Telephone encounter Bernie Adam MD Work Phone: [facility] Start: 07-22-2024 End: 07-22-2024 Orders Only Kenia Castillo NP Work Phone: [facility] Comment on above: Decreased renal func tion Start: 07-09-2024 End: 07-09-2024 Bamboo flowsheet Kenia Castillo [employer] PROPELLANT PROCESSOR Work Phone: [facility] Start: 07-09-2024 End: 07-09-2024 Bamboo flowsheet Kenia Castillo SOLID PROPELLANT PROCESSOR Work Phone: [facility] Start: 07-09-2024 End: 07-09-2024 Office outpatient visit 25 minutes Kenia Castillo SOLID PROPELLANT PROCESSOR Work Phone: [facility] Comment on [...] 07-09-2024 End: 07-09-2024 Telephone encounter Kenia Cordonjaredfito SOLID PROPELLANT PROCESSOR Work Phone: [facility] Start: 07-09-2024 End: 07-09-2024 ambulatory KENIA CORDONJaredFITO Not Available Start: 07-08-2024 End: 07-09-2024 Refill Kenia Castillo SOLID PROPELLANT PROCESSOR Work Phone: [facility] Comment on above: Paroxysmal atrial fi brillation (CMS/HCC) Start: 06-28-2024 End: 06-28-2024 Telephone encounter Kenia Cordonayush SOLID PROPELLANT PROCESSOR Work Phone: [facility] Start: 05-23-2024 End: 05-23-2024 Telephone encounter Bernie Adam MD Work Phone: [facility] Comment on above: Acute cough (Primary Dx) Start: 05-20-2024 End: 05-20-2024 Bamboo flowsheet Kenia Cordonayush SOLID PROPELLANT PROCESSOR Work Phone: [facility] Start: 05-20-2024 End: 05-20-2024 Bamboo flowsheet Kenia Cordonayush SOLID PROPELLANT PROCESSOR Work Phone: [facility] Start: 05-20-2024 [...] 04-01-2024 End: 04-01-2024 ambulatory [facility]ill[facility] Start: 03-22-2024 End: 03-22-2024 Refill Kenia Castillo SOLID PROPELLANT PROCESSOR Work Phone: [facility] Comment on above: Primary hypertension ([facility]/HCC) Start: 03-04-2024 End: 03-04-2024 ambulatory [facility]ill[facility] Start: 02-23-2024 End: 02-25-2024 ambulatory [facility] Start: 02-23-2024 End: 02-25-2024 Subsequent hospital visit by physician Ej Foster MD Work Phone: [facility] Cardiac Cath/IR Lab Comment on above: Paroxysmal atrial fi brillation (HCC) (Primary Dx); PAF (paroxysmal atrial fibrillation) ([facility]) AF (paroxysmal atria l fibrillation) ([facility]) Start: 02-20-2024 End: 02-20-2024 ambulatory KENIA CASTILLO Not Available Start: 02-20-2024 End: 02-20-2024 Bamboo flowsheet Kenia Castillo SOLID PROPELLANT PROCESSOR Work Phone: [facility] Start: 02-20-2024 End: 02-20-2024 Bamboo flowsheet Kenia Castillo SOLID PROPELLANT PROCESSOR Work Phone: [facility] Start: 02-20-2024 End: 02-20-2024 Patient encounter procedure Kenia Castillo NP Work Phone: [facility] Comment on above: Encounter for [facility] ss examination (Primary Dx); Mixed hyperlipidemia (CMS/HCC); [...] encounter status Kenia Castillo NP Work Phone: [facility] Start: 02-19-2024 End: 02-19-2024 Edilma Adam MD Work Phone: [facility] Comment on above: Type 2 diabetes magnolia itus with diabetic peripheral angiopathy without gangrene (CMS/HCC) Start: 02-05-2024 End: 02-07-[address] [facility] Start: 02-05-2024 End: 02-07-2024 Subsequent hospital visit by physician [address] Non-Invasive Cardiology Comment on above: Permanent [...] End: 01-01-2024 Orders Only Jeannine Naty Evangelista SOLID PROPELLANT PROCESSOR Work Phone: [facility] Comment on above: Bronchitis (Primary Dx) Start: 12-29-2023 End: 02-12-2024 Orders Only Jeannine Naty Evangelista SOLID PROPELLANT PROCESSOR Work Phone: [facility] Comment on above: Bronchitis Start: 12-28-2023 End: 12-28-2023 Refill Bernie Adam MD Work Phone: [facility] Comment on above: Bronchitis Bronchitis (Primary Dx) Start: 12-26-2023 End: 12-26-2023 Bamboo flowsheet Jeannine Rodríguezzpatrick SOLID PROPELLANT PROCESSOR Work Phone: [facility] Start: 12-26-2023 End: 12-26-2023 Bamboo flowsheet Jeannine Naty Evangelista SOLID PROPELLANT PROCESSOR Work Phone: [facility] Start: 12-26-2023 End: 12-26-2023 Office outpatient visit 15 minutes Jeannine Perezpatrick SOLID PROPELLANT PROCESSOR Work Phone: [facility] Comment on [...] Bamboo flowsheet Arianna Lou DPM Work Phone: [facility] Start: 11-15-2023 End: 11-15-2023 Patient encounter procedure Arianna Lou DPM Work Phone: [facility] Comment on above: Dermatophytosis of n ail (Primary Dx); Dystrophic nail; Pain around toenail, right foot; Pain around toenail, left foot Start: 11-15-2023 End: 11-15-2023 ambulatory ARIANNA LOU Not Available Start: 11-13-2023 End: 11-13-2023 ambulatory Ever Guillen MD Facility:[facility] Start: 10-23-2023 End: 10-24-2023 Refill Kenia Castillo NP Work Phone: [facility] Comment on above: Paroxysmal atrial fi brillation (CMS/HCC) Start: 10-23-2023 End: 10-23-2023 ambulatory Ever Guillen MD Facility:[facility] Start: 10-11-2023 End: 10-11-2023 Bamboo flowsheet Kenia Castillo NP Work Phone: [facility] Start: 10-11-2023 End: 10-11-2023 Bamboo flowsheet Kenia Castillo SOLID PROPELLANT PROCESSOR Work Phone: [facility] Start: 10-11-2023 End: 10-11-2023 Office outpatient visit 15 minutes Kenia Castillo NP Work Phone: [facility] Comment on above: Dental abscess (Prim ora Dx) Start: 10-11-2023 End: 10-11-2023 ambulatory KENIA CASTILLO Not Available Start: 09-18-2023 End: 09-18-2023 ambulatory Ever Guillen MD Facility:[facility] Start: 06-14-2023 End: 06-30-2023 ambulatory DAVID AWAD [facility] Start: 05-23-2023 End: 05-23-2023 ambulatory Trenton Redd Facility:[facility] Start: 05-23-2023 End: 05-23-2023 ambulatory SOLID PROPELLANT PROCESSOR-C Jeannine Moseleyk Work Phone: [facility] Work Phone: Start: 05-23-2023 End: 05-23-2023 Patient encounter procedure SOLID PROPELLANT PROCESSOR-C Jeannine Moseleyk Work Phone: [facility] [address] Work Phone: Start: 05-11-2023 End: 05-11-2023 ambulatory SOLID PROPELLANT PROCESSOR-C Jeannine Moseleyk Work Phone: [facility] Work Phone: Start: 05-11-2023 End: 05-11-2023 Patient encounter procedure SOLID PROPELLANT PROCESSOR-C Jeannine Evangelista Work Phone: [facility] [address] Work Phone: Start: 03-30-2023 Telephone encounter Alex lantigua PT Work Phone: [facility] Comment on above: re: [employer] for PT (He called noting he had just gotten verification per [employer] that if referring provider refers for therapy then PT would be covered. He gave a reference # [id number].) Start: 03-29-2023 Telephone encounter Alex lantigua PT [...] so.) Start: 03-28-2023 Telephone encounter Maddie Noa CLUB ROOM ATTENDANT [facility] Comment on above: [...] End: 09-23-2020 Subsequent hospital visit by physician [facility] Echo Room [facility] Echocardiography Comment on above: Persistent atrial fi brillation (HCC); SOB (shortness of breath); Essential hypertension; Other specified diabetes mellitus with other specified complication, unspecified whether skilled nursing insulin use ([facility]); Class 2 obesity with body mass index (BMI) of 36.0 to 36.9 in adult, unspecified obesity type, unspecified whether serious comorbidity present; Pain in both lower extremities Start: 03-10-2020 End: 03-12-2020 Subsequent hospital visit by physician [facility] Vascular Imaging Room [facility] Laboratory Comment on above: Controlled type 2 di abetes mellitus with hyperglycemia, without long-term current use of insulin (HCC); Persistent atrial fibrillation (HCC); SOB (shortness of breath); Essential hypertension; Other specified diabetes mellitus with other specified complication, unspecified whether buttermaker helper insulin use ([facility]); Class 2 obesity with body mass index (BMI) of 36.0 to 36.9 in adult, unspecified obesity type, unspecified whether serious comorbidity present; COVID-19; Fluid retention; Pain in both lower extremities Pain in both lower e xtremities; PVD (peripheral vascular disease) (HCC) Start: 02-12-2020 End: 02-12-2020 Subsequent hospital visit by physician Ej Foster Work Phone: [facility] ICU Comment on above: Arrived Start: 01-22-2020 End: 01-22-2020 Subsequent hospital visit by physician [facility] Echo Room [facility] Echocardiography Comment on above: Persistent atrial fi brillation (HCC); Essential hypertension; SOB (shortness of breath); Fluid retention; Other specified diabetes mellitus with other specified complication, unspecified whether buttermaker helper insulin use (HCC); Class 2 obesity with body mass index (BMI) of 36.0 to 36.9 in adult, unspecified obesity type, unspecified whether serious comorbidity present Start: 12-16-2019 End: 12-16-2019 Patient encounter procedure [facility] Facility: Start: 12-11-2019 End: 12-11-2019 [facility] Covid Screening Comment on above: Arrived Procedures Date Procedure Procedure Detail Performing Clinician Start: 09-18-2024 Hemoglobin glycosylated a1c Kenia Cordonayush SOLID PROPELLANT PROCESSOR Work Phone: Start: 05-20-2024 Hemoglobin glycosylated a1c Kenia Cordonayush SOLID PROPELLANT PROCESSOR Work Phone: Start: 02-23-2024 End: 02-23-2024 Ecg routine ecg w/least 12 lds w/i&r Ej Foster MD Work Phone: Start: 02-23-2024 Ecg routine ecg w/le ast 12 lds w/i&r Ej oFster MD Work Phone: Start: 02-20-2024 Urine albumin quantitative Kenia Castillo SOLID PROPELLANT PROCESSOR Work Phone: Start: 02-20-2024 Lipid panel Kenia rush SOLID PROPELLANT PROCESSOR Work Phone: Start: 02-20-2024 Comprehensive metabo lic panel Kenia Castillo SOLID PROPELLANT PROCESSOR Work Phone: Start: 02-05-2024 Echo tthrc r-t [...] above: Performed By: #### B [id number] #### [facility] [address] [place] [address] Cheryl Srinivasan Performed By: #### C BC #### [facility] [address] [place] [address] Cheryl Srinivasan Plan of Treatment Date Care Activity Detail Author Start: 11-28-2028 DTaP/Tdap/Td vaccine (2 - Td or Tdap) DTaP/Tdap/Td vaccine (2 - Td or Tdap) [facility] Start: 11-28-2028 DTaP/Tdap/Td vaccine (2 - Td) DTaP/Tdap/Td vaccine (2 - Td) [facility] [place] Start: 02-19-2025 Medicare Annual Wellness (AWV) Medicare Annual Wellness (AWV) [facility] Start: 02-19-2025 Urine screening for protein Diabetes: Urine Protein Screening [facility] Start: 01-20-2025 End: 01-20-2025 Patient encounter procedure 01/20/2025 2:00 PM EST Office Visit [facility] [address] [place] [address] Kenia Castillo, KIERA [address] [place] [address] [facility] Start: 01-08-2025 End: 01-08-2025 Patient encounter procedure [facility] Start: 12-19-2024 Hemoglobin A1c measurement Diabetes: Hemoglobin A1C [facility] Start: 10-15-2024 End: 10-15-2024 ambulatory 10/15/2024 2:30 PM EDT Treatment [facility] [address] [facility] [address] [place] [address] Maddie Latham PTA [facility] Start: 10-14-2024 Influenza vaccination Influenza Vaccine (#1) [facility] Start: 10-10-2024 End: 10-10-2024 ambulatory 10/10/2024 2:30 PM EDT Treatment [facility] [address] [facility] [address] [place] [address] Valerie Argueta, PT [facility] [...] [facility] [facility] [address] [facility] [address] [place] [address] Maddie Latham PTA [facility] [...] [address] [place] [address] Kelbley, Maddie, CLUB ROOM ATTENDANT [facility] [place] [facility] Start: 09-09-2024 End: 09-09-2024 ambulatory 09/09/2024 2:30 PM EDT Treatment [facility] [address] [place] [address] Kelbley, Maddie, CLUB ROOM ATTENDANT Spinal stenosis, lumbar region with neurogenic claudication [...] Evaluation [facility] [address] [facility] [address] [place] [address] Valerie Argueta, PT [facility] Start: 08-19-2024 Hemoglobin A1c measurement Diabetes: Hemoglobin A1C [facility] Start: 07-22-2024 End: 07-22-2025 Comprehensive metabolic 2000 panel - Serum or Plasma Comprehensive metabolic panel Lab Routine Decreased renal function Expected: 07/22/2024 (Approximate), Expires: 07/22/2025 [facility] Work Phone: Comment on above: Expected: 07/22/2024 (Approximate), Expi res: 07/22/2025 Start: 07-09-2024 End: 07-09-2024 Professional / ancillary services management 07/09/2024 2:45 PM EDT Ancillary Procedure [facility] [address] [place] [address] Localized edema [facility] [...] STAT Localized edema Expected: 07/09/2024, Expires: 07/09/2025 [facility] Work Phone: Comment on above: Expected: 07/09/2024, Expires: Start: 06-27-2024 Screening for malignant neoplasm of colon Colorectal Cancer Screening [facility] Comment on above: Postponed from 1948 (Patient Refus ed) Start: 06-08-2024 Urine screening for protein Diabetes: Urine Protein Screening [facility] Start: 05-20-2024 Hemoglobin A1c measurement Diabetes: Hemoglobin A1C [facility] Start: 05-20-2024 End: 05-20-2024 Patient encounter procedure [facility] Comment on above: Arrived Start: 04-15-2024 End: 04-15-2024 Patient encounter procedure 04/15/2024 2:30 PM EST Procedure Visit [facility] [address] [place] [phone] Arianna Lou DPM [address] [place] [address] [facility] Start: 03-21-2024 End: 03-21-2024 Patient encounter procedure 03/21/2024 2:00 PM EST Office Visit [facility] [address] [id number] Shalini Morrow PA-C [address] [place] [phone] 4 week [facility] Comment on above: 4 week Start: 03-19-2024 End: 03-19-2024 Patient encounter procedure 03/19/2024 1:00 PM EST Procedure Visit [facility] [address] [place] [phone] Arianna Lou DPM [address] [place], [place] [phone] [facility] Start: 03-04-2024 End: 03-04-2024 Patient encounter procedure 03/04/2024 1:00 PM EST Office Visit [facility] [address] [facility] [address] [place] [address] Trenton Redd PA [address] [facility] [address] [place] [address] [facility] Start: 02-22-2024 End: 02-22-2024 Patient encounter procedure 02/22/2024 3:00 PM EST Office Visit [facility] Part [address] [place] [address] Shalini Morrow PA-C [address] [place], [place] [phone] 2 week [facility] Comment on above: 2 week Start: 02-22-2024 Annual Wellness Visit (Medicare) Annual Wellness Visit (Medicare) [facility] Start: 02-20-2024 End: 02-20-2024 Patient encounter procedure 02/20/2024 2:00 PM EST Office Visit [facility] [address] [facility] [place] [address] Kenia Castillo NP [address] [place] [facility] [place] [address] [facility] Start: 01-17-2024 End: 01-17-2024 Patient encounter procedure 01/17/2024 2:00 PM EST Office Visit [facility] [address] [facility] [place] [address] Kenia Castillo NP [address] [place] [address] [facility] Start: 12-20-2023 Hemoglobin A1c measurement Diabetes: Hemoglobin A1C [facility] Start: 12-03-2023 Medicare Annual Wellness (AWV) Medicare Annual Wellness (AWV) [facility] Start: 11-15-2023 End: 11-15-2023 Patient encounter procedure [facility] Comment on above: Arrived Start: 11-02-2023 Urine screening for protein Diabetes: Urine Protein Screening [facility] Start: 10-15-2023 Influenza vaccination Influenza Vaccine (#1) [facility] Start: 10-11-2023 End: 10-11-2023 Patient encounter procedure 10/11/2023 9:00 AM EDT Office Visit [facility] [address] [place] [phone] Kenia Castillo NP [address] [place] [address] [facility] Comment [facility]: Ar[facility] Start: 06-14-2023 End: 06-14-2023 Patient encounter procedure 06/14/2023 1:30 PM EDT Procedure Visit [facility] [address] [place] [phone] Arianna Lou, DP [address] [place] [address] [facility] Start: 06-09-2023 End: 06-09-2023 Patient encounter procedure 06/09/2023 1:00 PM EDT Office Visit [facility] [address] [place] [phone] Kenia Castillo NP [address] [place] [address] [facility] Start: 05-04-2023 GFR test (Diabetes, CKD 3-4, OR last GFR 15-59) GFR test (Diabetes, CKD 3-4, OR last GFR 15-59) [facility] Start: 04-17-2023 End: 04-17-2023 Patient encounter procedure 04/17/2023 1:30 PM EST Office Visit [facility] [address] [place] [phone] Trenton Redd, PA [address] [place] [address] [facility] Start: 04-13-2023 End: 04-13-2023 ambulatory 04/13/2023 1:00 PM EST Treatment [facility] [address] [place] [address] Alex Rico, PT [address] [place] [address] [facility] Start: 04-11-2023 End: 04-11-2023 ambulatory 04/11/2023 1:00 PM EST Treatment [facility] [address] [place] [address] Maddie Latham, CLUB ROOM ATTENDANT [facility] Start: 04-06-2023 End: 04-06-2023 ambulatory 04/06/2023 2:00 PM EST Treatment [facility] [address] [place] [address] Maddie Latham, CLUB ROOM ATTENDANT [facility] Start: 04-05-2023 End: 04-05-2023 ambulatory 04/05/2023 1:00 PM EST Treatment [facility] [address] [place] [address] Valerie Argueta, PT [facility] Start: 04-04-2023 End: 04-04-2023 ambulatory 04/04/2023 1:00 PM EST Treatment [facility] [address] [place] [address] Maddie Latham, CLUB ROOM ATTENDANT [facility] Start: 03-30-2023 End: 03-30-2023 ambulatory 03/30/2023 2:00 PM EST Treatment [facility] [address] [place] [address] Maddie Latham, CLUB ROOM ATTENDANT [facility] Start: 03-28-2023 End: 03-28-2023 ambulatory 03/28/2023 1:30 PM EST Treatment [facility] [address] [facility] [address] [place] [address] Noa Maddie, CLUB ROOM ATTENDANT [facility] Start: 03-23-2023 End: 03-23-2023 ambulatory 03/23/2023 1:00 PM EST Evaluation [facility] [address] [facility] [address] [place] [address] Maryrosio Alex Juan, PT [address] [facility] [address] [place] [address] Left thigh pain; Muscle strain of left thigh, subsequent encounter [facility] Comment on above: Left thigh pain; Muscle strain of left thigh, subsequent encounter Start: 01-31-2023 Hemoglobin A1c measurement Diabetes: Hemoglobin A1C [facility] Start: 01-09-2023 Annual Wellness Visit (Medicare) Annual Wellness Visit (Medicare) [facility] Start: 12-02-2022 Glaucoma screening Diabetes: Retinopathy Screening [facility] Start: 09-30-2021 End: 09-30-2021 Patient encounter procedure 09/30/2021 Office Visit Cardiology Ej Foster MD [address] [place] [address] [place] [address] [facility] Start: 03-10-2021 Creatinine measurement Creatinine monitoring [facility] [place] Start: 03-10-2021 HbA1c (Bld) [Mass fraction] A1C test (Diabetic or Prediabetic) [place], [place] Start: 03-10-2021 Hemoglobin A1c measurement A1C test (Diabetic or Prediabetic) [facility] Start: 03-10-2021 Lipid panel [facility] Start: 03-10-2021 Potassium monitoring Potassium monitoring [place], [place] Start: 01-21-2021 Creatinine measurement Creatinine monitoring [facility] [place] Start: 01-21-2021 HbA1c (Bld) [Mass fraction] A1C test (Diabetic or Prediabetic) [place] Start: 01-21-2021 Potassium monitoring Potassium monitoring [place] Start: 09-01-2021 Influenza vaccination Flu vaccine (#1) [facility] Work Phone: Start: 09-16-2020 End: 09-16-2020 Office Visit 09/16/2020 Office Visit Cardiology Ej Foster MD [address] [facility] [place] [address] [facility] Start: 03-10-2020 End: 03-10-2020 Office Visit 03/10/2020 Office Visit Cardiology Ej Foster MD [address] [place] [address] [facility] Start: 02-21-2020 End: 02-21-2020 Office Visit 02/21/2020 Office Visit Cardiology Ej Foster MD [address] [place] [address] [facility] Start: 01-30-2020 End: 01-30-2020 Office Visit 01/30/2020 Office Visit Cardiology Ej Foster MD [address] [place] [address] [facility] Start: 12-11-2019 Annual Wellness Visit (AWV) Annual Wellness Visit (AWV) [place] Start: 10-15-2019 Influenza vaccination Flu vaccine (#1) [place] Start: 2013 Pneumococcal 65+ years Vaccine (1 of 1 - PPSV23) Pneumococcal 65+ years Vaccine (1 of 1 - PPSV23) [place] Start: 2013 Pneumococcal 65+ years Vaccine (2 of 2 - PPSV23) Pneumococcal 65+ years Vaccine (2 of 2 - PPSV23) [place] Start: 07-17-2012 Shingles Vaccine (2 of 3) Shingles Vaccine (2 of 3) [facility] Start: 1998 Screening for malignant neoplasm of colon Colon cancer screen colonoscopy [place], [place] Start: 1998 Shingles Vaccine (1 of 2) Shingles Vaccine (1 of 2) [place] Start: 1993 Screening for malignant neoplasm of colon [facility] Start: 1988 Lipid panel Lipid screen [place] Start: 10-04-1967 DTaP/Tdap/Td vaccine (1 - Tdap) DTaP/Tdap/Td vaccine (1 - Tdap) [place] Start: 1966 Diabetic microalbuminuria test Diabetic microalbuminuria test [place] Start: 1966 Glaucoma screening Diabetic retinal exam [facility] Start: 1966 Hepatitis C screening Hepatitis C screen [facility] Start: 1966 Urine screening for protein Diabetic Alb to Cr ratio (uACR) test [facility] Start: 1960 Depression Screen Depression Screen [facility] Start: 1958 Diabetic foot examination Diabetic foot exam [facility] Start: 1958 Diabetic retinal exam Diabetic retinal exam [place], [place] Start: 1958 Lipid panel Lipid screen [place], [place] Start: 1948 Creatinine measurement Creatinine monitoring [place], [place] Start: 1948 Hepatitis C screening Hepatitis C screen [place], [place] Start: 1948 Potassium monitoring Potassium monitoring [place], [place] Start: 1948 Screening for malignant neoplasm of colon [facility] End: 02-23-2024 Cardioversion external [facility] Comment on above: 1 Occurrences starting 02/23/2024 until 02/23/2024 End: 02-12-2020 Catheterization and angiography procedure details panel Diagnostic Cardiac Drop Tester Procedure Cardiac Cath Routine One Time for 1 Occurrences starting 02/12/2020 until 02/12/2020 [place] Comment on above: One Time for 1 Occurrences starting 01/15 until 02/12/2020 Continuous pulse oximetry Pulse oximetry, continuous Respiratory Care Routine Every 4hr until discontinued starting 02/12/2020 [place] Comment on above: Every 4hr until discontinued starting End: 12-11-2019 Covid-19 Ambulatory Covid-19 Ambulatory Lab Routine Once for 1 Occurrences starting 12/11/2019 until 12/11/2019 [facility] [place] Comment on above: Once for 1 Occurrences starting 12/11/19 20 until 12/11/2019 Covid-19 Ambulatory Covid-19 Amb ulatory Lab Routine 12/11/2019 2:27 PM EDT [place] EKG 12 Lead EKG 12 Lead ECG Routine 02/12/2020 8:26 AM EST [place] End: 02-12-2020 End Tidal CO2 Continuous End Tidal CO2 Continuous Respiratory Care Routine Continuous until discontinued starting 02/12/2020 [place] Comment on above: Continuous until discontinued starting 1 End: 02-23-2024 Extended cardiac holter monitor (3 day-14 day) [facility] [place] Comment on above: One Time for 1 Occurrences starting 02/13 until 02/23/2024 End: 02-05-2024 Extended cardiac holter monitor (3 days-14 day) [facility] [place] Comment on above: 1 Occurrences starting 02/05/2024 until 02/05/2024 End: 02-26-2024 Extended cardiac holter monitor (3 days-14 day) [facility] [place] Comment on above: 1 Occurrences starting 02/26/2024 until 02/26/2024 End: 03-10-2020 HbA1c (Bld) [Mass fraction] Hemoglobin A1C Lab Routine Controlled type 2 diabetes mellitus with hyperglycemia, without long-term current use of insulin ([facility]) 1 Occurrences starting 03/10/2020 until 03/10/2020 [place], [place] Comment on above: 1 Occurrences starting 03/10/2020 until 03/10/2020 HbA1c (Bld) [Mass fraction] Hemoglobin A1C Lab Routine Controlled type 2 diabetes mellitus with hyperglycemia, without long-term current use of insulin ([facility]) 03/10/2020 12:35 PM [place], [place] End: 02-23-2024 INITIATE PACU OXYGEN THERAPY PROTOCOL Initiate PACU Oxygen Therapy Protocol Respiratory Care Routine Continuous until discontinued starting 02/23/2024 [facility] Comment on above: Continuous until discontinued starting 0 02/23/2024 Oxygen therapy [[facility] Data Set] Initiate Oxygen Therapy Protocol Respiratory Care Routine Daily until discontinued starting 02/12/2020 [place] Comment on above: Daily until discontinued starting 2019 End: 03-10-2020 VL LOWER EXTREMITY ARTERIAL SEGMENTAL PRESSURES W PPG VL LOWER EXTREMITY ARTERIAL SEGMENTAL PRESSURES W PPG Imaging STAT Pain in both lower extremities PVD (peripheral vascular disease) ([facility]) 1 Occurrences starting 03/10/2020 until 03/10/2020 [place] Comment on above: 1 Occurrences starting 03/10/2020 until 03/10/2020 VL LOWER EXTREMITY ARTERIAL SEGMENTAL PRESSURES W PPG VL LOWER EXTREMITY ARTERIAL SEGMENTAL PRESSURES W PPG Imaging STAT Pain in both lower extremities PVD (peripheral vascular disease) ([facility]) 03/10/2020 1:24 PM EST [place] Immunizations Immunization Date Immunization Notes Care Provider [facility] 11-21-2023 influenza, high dose seasonal, preservative-free Kenia Castillo SOLID PROPELLANT PROCESSOR Work Phone: [facility] 11-21-2023 Pneumococcal Conjuga te PCV 20 Kenia Castillo SOLID PROPELLANT PROCESSOR Work Phone: [facility] 11-21-2023 SARS-COV-2 (COVID-19 ) vaccine, mRNA, spike protein, LNP, PF, 50 mcg/0.5 mL Kenia Castillo SOLID PROPELLANT PROCESSOR Work Phone: [facility] 11-21-2023 influenza virus vacc ine, unspecified formulation Valerie Argueta PT [facility] 12-05-2022 RSV, recombinant, pr otein subunit RSVpreF, adjuvant reconstitu, 120mcg/0.5mL, PF (Arexvy) Kenia Castillo SOLID PROPELLANT PROCESSOR Work Phone: [facility] 12-02-2022 pneumococcal polysaccharide vaccine, 23 valent Alex Rico PT Work Phone: [facility] 11-01-2022 influenza, high dose seasonal, preservative-free Alex Rico PT Work Phone: [facility] 11-01-2022 influenza virus vacc ine, unspecified formulation Kenia Castillo SOLID PROPELLANT PROCESSOR Work Phone: [facility] 11-01-2021 Influenza, Seasonal, Quadrivalent, Adjuvanted Alex Rico PT Work Phone: [facility] 11-01-2021 SARS-COV-2 (COVID-19 ) vaccine, mRNA, spike protein, LNP, bivalent, preservative free, 30 mcg/0.3 mL dose, mauro-sucrose formulation Alex Rico PT Work Phone: [facility] 11-01-2021 SARS-CoV-2, Unspecified Jamie Rico PT Work Phone: [facility] 10-30-2021 Influenza, High-dose Seasonal, Quadrivalent, Preservative Free Alex Rico PT Work Phone: [facility] 11-12-2020 Influenza, High-dose Seasonal, Quadrivalent, Preservative Free Alex Rico PT Work Phone: [facility] 11-11-2020 Influenza, High-dose Seasonal, Quadrivalent, Preservative Free Alex Rico PT Work Phone: [facility] 11-11-2020 Pfizer Purple Cap SARS-CoV-2 Vaccination Alex Rico PT Work Phone: [facility] 04-12-2020 Pfizer Purple Cap SARS-CoV-2 Vaccination Alex Rico PT Work Phone: [facility] 03-19-2020 Pfizer Purple Cap SARS-CoV-2 Vaccination Alex Rico PT Work Phone: [facility] 11-28-2019 influenza, injectabl e, quadrivalent, preservative free Alex Rico PT Work Phone: [facility] 11-28-2018 influenza, injectabl e, quadrivalent, preservative free Alex Rico PT Work Phone: [facility] 11-28-2018 tetanus toxoid, redu hiral diphtheria toxoid, and acellular pertussis vaccine, adsorbed Alex Rico PT Work Phone: [facility] 11-27-2018 influenza, high dose seasonal, preservative-free Alex Rico PT Work Phone: [facility] 11-27-2017 influenza, high dose seasonal, preservative-free Alex Rico PT Work Phone: [facility] 11-27-2017 Influenza, High-dose Seasonal, Quadrivalent, Preservative Free Alex Rico PT Work Phone: [facility] 11-22-2016 influenza, injectabl e, quadrivalent, contains preservative Alex Rico PT Work Phone: [facility] 11-22-2016 influenza, injectabl e, quadrivalent, preservative free Alex Rico PT Work Phone: [facility] 07-29-2015 pneumococcal conjuga te vaccine, 13 valent Alex Rico PT Work Phone: [facility] 01-21-2015 influenza, seasonal, injectable, preservative free Alex Rico PT Work Phone: [facility] 12-11-2013 influenza, injectabl e, quadrivalent, preservative free Alex Rico PT Work Phone: [facility] 03-13-2013 influenza, seasonal, injectable Alex Rico PT Work Phone: [facility] 03-13-2013 influenza, seasonal, injectable, preservative free Alex Rico PT Work Phone: [facility] 03-13-2013 pneumococcal polysaccharide vaccine, 23 valent Alex Rico PT Work Phone: [facility] 05-22-2012 zoster vaccine, live Alex Rico PT Work Phone: [facility] 02-02-2012 influenza, seasonal, injectable Alex Rico PT Work Phone: [facility] Payers Date Payer Category Payer Self-pay 2023 Medicare [id number] 2023 Medicare (Managed Care) [facility] MED[facility] [id number] 2023 Private Health Insurance [employer] [id number] 2023 Medicare [id number] 2023 Unknown [id number] 1.13.693.2. [id number] 1959 Medicare [id number] 1.2.840.213172.1.13.239.2. [id number] 1959 Unknown [id number] 1948 Unknown [id number] 2.16.840.1.860954.3.579.2. 593 1948 Unknown [id number] 2.16.840.1.787842.3.579.2. 1286 1948 Unknown [id number] 2.16.840.1.391043.3.579.2. 1286 1948 Unknown [id number] 2.16.840.1.124776.3.579.2. 1286 1948 Unknown [id number] 2.16.840.1.279451.3.579.2. 173 1948 Unknown [id number] 2.16.840.1.700505.3.579.2. 173 1948 Unknown [id number] 2.16.840.1.642823.3.579.2. 173 1948 Unknown [id number] 2.16.840.1.067505.3.579.2. 173 1948 Unknown [id number] 2.16840.1.221734.3.579.2. 196 1948 Unknown [id number] 2.16840.1.155013.3.579.2. 196 1948 Unknown [id number] 2.16840.1.195667.3.579.2. 196 1948 Unknown [id number] 2.16840.1.093556.3.579.2. 196 1948 Unknown [id number] 2.16840.1.809172.3.579.2. 196 1948 Unknown [id number] 2.16.840.1.080825.3.579.2. 196 1948 Unknown [id number] 2.16.840.1.694345.3.579.2. 1259 1948 Unknown [id number] 2.16.840.1.513858.3.579.2. 1259 1948 Unknown [id number] 2.16.840.1.355970.3.579.2. 1259 9 Unknown [id number] 2.840.1.769568.3.579.2. 125 1948 Unknown [id number] 2.840.1.451224.3.579.2. 125 1948 Unknown [id number] 2.840.1.818788.3.579.2. 125 1948 Unknown [id number] 2.840.1.511115.3.579.2. 125 1948 Unknown [id number] 2.840.1.295185.3.579.2. 1258 1948 Unknown [id number] 2.840.1.241743.3.579.2. 1258 1948 Unknown [id number] 2.0.1.164723.3.579.2. 1258 1948 Unknown [id number] 2.840.1.623597.3.579.2. 125 1948 Unknown [id number] 2.840.1.667990.3.579.2. 1258 1948 Unknown [id number] 2.0.1.613338.3.579.2. 125 1948 Unknown [id number] 2.0.1.241757.3.579.2. 125 1948 Unknown [id number] 2.840.1.728305.3.579.2. 125 1948 Unknown [id number] 2.840.1.022409.3.579.2. 1258 1948 Unknown [id number] 2.840.1.786701.3.579.2. 125 1948 Unknown [id number] 2.840.1.603566.3.579.2. 1258 1948 Unknown [id number] 2.840.1.948162.3.579.2. 1259 Unknown [id number] 2.16.840.1.792844.3.579.2. 531 Social History Date Type Detail Facility Tobacco smoking stat us DEIS Unknown if ever smoked [place], [place] Start: 1950 Sex Assigned At Not on file [place] Start: 01-22-2020 End: 08-02-2022 Tobacco smoking status NHIS Never smoker [place] Start: 01-22-2020 End: 08-02-2022 Tobacco use and exposure Never used [place] Start: 03-10-2020 End: 09-18-2024 Alcohol intake Current drinker of alcohol (finding) [place] Start: 02-12-2020 Alcohol Comment having had sin ce December [place] Exposure to SARS-CoV -2 (event) Not sure [place] Start: 09-16-2020 End: 12-02-[address] [facility] Work Phone: Start: 12-02-2022 End: 03-14-2023 Tobacco use panel [facility] Start: 10-25-2022 Alcohol Comment drinks alcohol 2-3 times a week [facility] Start: 1950 Sex Assigned At Male F [facility] How often to you hav e [...] 02-23-2024 Alcohol Comment occasional [facility] Clinical Notes 09-23-2020 to 09-18-2024 Kenia Castillo, [...] was 321 pounds when he visited his scaffold setter. Social History: Sleep: Reports disrupted sleep due [...] Morbid (severe) obesity due to excess calories ([facility]) -Down 10 lbs since last visit. Keep up the great work! Did discuss seeing if we could get insurance to cover a different GLP1, he declines at this time would like to continue with lifestyle modifications. documented in this encounter [facility] 09-09-2024 History of Present illness Narrative Images [...] sign below. Date: documented in this encounter [facility] 09-03-2024 History of Present illness Narrative Images [...] Arianna Lou DPM documented in this encounter [facility] 08-30-2024 History of Present illness Narrative Images [...] to be instructed in home exercise program. Supervisor Maintenance Goals: To be met in 10 weeks [...] sign below. Date: documented in this encounter [facility] 08-15-2024 Telephone encounter Note He contacted and noted he is going on vacation and will contact once he returns to schedule PT. [facility] 08-15-2024 Miscellaneous Notes He contacted and noted he is going on vacation and will contact once he returns to schedule PT. LM requesting a call back to schedule PT Eval. documented in this encounter [facility] 08-15-2024 Telephone encounter Note LM requesting a call back to schedule PT Eval. [facility] 07-24-2024 Telephone encounter Note Patient called back and message was given. He understood and had no further questions. [facility] 07-24-2024 Miscellaneous Notes Patient called back and [...] Kenia Castillo NP documented in this encounter [facility] 07-23-2024 Telephone encounter Note L/m letting pt know of message. [facility] 07-23-2024 Telephone encounter Note ----- Message from Kenia Castillo sent at 07/23/2024 6:13 PM EDT ----- Renal function back to baseline, he needs to avoid NSAIDS ----- Message ----- From: Whitley [facility] Lab Results In Sent: 07/23/2024 6:24 AM EDT To: Kenia Castillo NP [facility] 07-23-2024 Telephone encounter Note Received as voicemail: José, my name is Quentin or Ching. My birthday is a [birth year]I am calling about the blood test that I had taken yesterday. Why did you probably find out about the results or what the dr. say about them? My phone number is [phone] would like to have a call back, please, thank you. [facility] 07-23-2024 Miscellaneous Notes Received as voicemail: José, my name is Quentin or Ching. My birthday is a [birth year]I am calling about the blood test that I had taken yesterday. Why did you probably find out about the results or what the dr. say about them? My phone number is [phone] would like to have a call back, please, thank you. documented in this encounter [facility] 07-09-2024 Telephone encounter Note Zepbound sent to pharmacy, most likely needs PA, please start, will need 4 week follow up if approved [facility] 07-09-2024 Miscellaneous Notes Zepbound sent to pharmacy, most likely needs PA, please start, will need 4 week follow up if approved documented in this encounter [facility] 07-09-2024 History of Present illness Narrative Images [...] been managing his restless legs syndrome with dfcn-ewr-jasmjbe medication, taking up to nine tablets at [...] correlation of RLS with untreated sleep apnea. POLO (obstructive sleep apnea) - Tirzepatide-Weight Management (Zepbound) [...] in the morning. documented in this encounter [facility] 06-28-2024 Telephone encounter Note Gave number he will call and schedule [facility] 06-28-2024 Miscellaneous Notes Gave number he will call and schedule Open referral for sleep medicine, did he schedule with Dr. Plascencia in [place]? documented in this encounter [facility] 06-28-2024 Telephone encounter Note Open referral for sleep medicine, did he schedule with Dr. Plascencia in [place]? [facility] 05-23-2024 Miscellaneous Notes Pt is requesting a cough medicine but does not want the little egg looking. He is not better from his visit, the cough is keeping him up and he needs [facility] to [facility] [place] documented in this encounter [facility] 05-23-2024 Telephone encounter Note Pt is requesting a cough medicine but does not want the little egg looking. He is not better from his visit, the cough is keeping him up and he needs something to get rid of it. [facility] [place] [facility] 05-20-2024 History of Present illness Narrative Images [...] cookies lately. Supplemental Information He went to scaffold setter on Monday, who said he looked pretty [...] Analgesics OTC prn. documented in this encounter [facility] 02-23-2024 History of Present illness Narrative IV [...] included. Mr. Winters Date of : 1950 [id number] Procedure: Cardioversion Pre-operative Diagnosis: Persistent atrial fibrillation, symptomatic Post-operative Diagnosis: Successful cardioversion to NSR with 300J biphasic Anesthesia: General Anesthesia. Provided by our anesthesia team. Procedure: The procedure was done in the [facility]. Benefits, risks and alternatives were explained to the patient and he agreed to proceed. Informed consent obtained. A separate informed consent obtained by our anesthesia team. Timeout obtained by the Drop T[facility] nurse. The defibrillator pads were attached in [...] cardiac medications. Ej Foster MD, MS, F.A.C.C. [facility], [place] [address] , documented in this encounter [facility] 02-23-2024 Hospital Discharge instructions Jannet Martinez RN [...] doctor prescribes. Do not take any vitamins, ydvn-qex-zxfrsgh medicines, or herbal products without talking to [...] or uneven pulse. After calling 911, the cocoa powder mixer operator may tell you to chew 1 [...] Where can you learn more? Go to [email or web address] and sign in to your [employer] account. Enter A617 in the Search Health Information box to learn more about Electrical Cardioversion: What to Expect at Home. If you do not have an account, please click on the Sign Up Now link. [id number] [employer]. Care instructions adapted under license by [employer]. This care instruction is for use with your licensed healthcare professional. If you have questions about a medical condition or this instruction, always ask your healthcare professional. [employer] disclaims any warranty or liability for your use of this information. Content Version: 10.6.538962; Current as of: April 04, 2014 documented in this encounter [facility] 02-20-2024 History of Present illness Narrative Images from the original note were not included. Zaina Winters is a 73 y.o. male presents with chief complaint of Medicare Annual Wellness Visit Subsequent HPI: HPI Getting an ablation on , having a procedure done by pain management soon sees pain management at [facility]. Send results to Dr. Mata at [facility] [place]. Not using cpap tried different mask couldn't [...] independence. Living will and durable power of senior integration developer reviewed. Updated patient problem list and reviewed [...] 40.0-44.9, adult (CMS/HCC) documented in this encounter [facility] 01-01-2024 Telephone encounter Note Sent prescription. [facility] 01-01-2024 Miscellaneous Notes Sent prescription. Informed patient that [facility] and he states I told her those don't work for me He wants you to send something stronger. [facility]ent to [facility] Addended by: RHONA HERRERA on: 12/29/2023 10:45 AM Modules accepted: [facility] [place] I believe the tessalon perles were sent. Patient was seen on 12/25 and has been taking otc cough syrup and it is not helping at all. He is requesting a prescription for cough syrup sent to [facility] in [place]. Ty documented in this encounter [facility] 01-01-2024 History of Present illness Narrative Prescription sent documented in this encounter [facility] 12-29-2023 Telephone encounter Note I sent in a few days of steroids to help with cough [facility] 12-29-2023 Miscellaneous Notes I sent in a few days of steroids to help with cough Can something else be sent in for pt to help with cough other than tesslon perles? Please contact pt with response. [facility] [place] documented in this encounter [facility] 12-29-2023 Telephone encounter Note Can something else be sent in for pt to help with cough other than tesslon perles? Please contact pt with response. [facility] [place] [facility] 12-29-2023 Telephone encounter Note Informed patient that [facility] and he states I told her those don't work for me He wants you to send something stronger. [facility] 12-29-2023 Telephone encounter Note Resent to [facility] 12-29-2023 History of Present illness Narrative Prescription sent documented in this encounter [facility] 12-29-2023 Note Addended by: Mirna HERRERA on: 12/29/2023 10:45 AM Modules accepted: Orders [facility] 12-29-2023 Telephone encounter Note [facility] to [facility] [place]. I believe the tessalon perles were sent. [facility] 12-28-2023 History of Present illness Narrative Prescription sent documented in this encounter [facility] 12-28-2023 Telephone encounter Note Patient was seen on 12/25 and has been taking otc cough syrup and it is not helping at all. He is requesting a prescription for cough syrup sent to [email or web address] in [place]. Ty [facility] 12-26-2023 History of Present illness Narrative [...] if symptoms worsen documented in this encounter [facility] 12-21-2023 Telephone encounter Note Quentin bloom - was in for ear infection etc last week . Now he hs it - he's asking if you would just send in what you gave her . [facility] 12-21-2023 Miscellaneous Notes Quentin bloom - was in for ear infection etc last week . Now he hs it - he's asking if you would just send in what you gave her . documented in this encounter [facility] 11-15-2023 History of Present illness Narrative Images [...] Arianna Lou DPM documented in this encounter [facility] 11-15-2023 Instructions Arianna Lou DPM - 11/15/2023 1:00 PM EDT As noted documented in this encounter [facility] 10-23-2023 Telephone encounter Note Patient is calling for refills. He is asking for [facility] 10-23-2023 Miscellaneous Notes Patient is calling for refills. He is asking for [facility] day [facility] documented in this encounter [facility] 10-11-2023 History of Present illness Narrative Images from the original note were not included. Zaina Winters is a 73 y.o. male presents with chief complaint of Establish Care HPI: Patient fell and hit his face 8 months ago and banged his teeth. So he went to [facility] about 6-8 months ago and [...] Artificial knee joint present 03/03/2021 Atrial fibrillation ([facility]) Chronic gouty arthritis 07/29/2015 COVID-19 Difficulty walking 03/07/2021 Elevated blood sugar Erectile dysfunction GERD without esophagitis 07/18/2022 Gout History of poliomyelitis Hx of gout Hyperlipidemia ([facility]) Hypertension ([facility]) 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 07/18/2022 New onset a-fib ([facility]) Paroxysmal atrial fibrillation ([facility]) 12/17/2019 Peripheral edema 11/28/2018 Polio 07/29/2015 [id number] condition 04/27/2020 Primary osteoarthritis involving multiple joints 10/04/2022 Psoriasis ([facility]) 06/26/2017 PVD (peripheral vascular disease) ([facility]) 08/30/2021 Restless legs Restless legs syndrome [...] gets surgery date. documented in this encounter [facility] 03-30-2023 Telephone encounter Note 04/05 @ 1:00 pm . [facility] 03-30-2023 Miscellaneous Notes 04/05 @ 1:00 pm . So that reference # does nothing? His eval was 2/8, and is it noted per [facility] to continue, auth is needed? Would it be ok to schedule? documented in this encounter [facility] 03-30-2023 Telephone encounter Note So that reference # does nothing? His eval was 2/8, and is it noted per [facility] to continue, auth is needed? [facility] 03-30-2023 Telephone encounter Note Would it be ok to schedule? [facility] 03-29-2023 Telephone encounter Note Pt cx PT out. [facility] 03-29-2023 Miscellaneous Notes Pt cx PT out. documented in this encounter [facility] 09-20-2021 Note [id number] 09-20-2021 Note [id number] 09-18-2021 Note Education Materials POST OPERATIVE TOTAL [...] to the nearest hospital's emergency services department. [facility] 09-18-2021 Note [facility] Clinical Discharge Summary PERSON INFORMATION Name ZAINA WINTERS Age 70 Years 1950 Sex MALE Language American PCP Jeannine Hurley Marital Status Med Service Observation Acct# Arrival 09/17/2021 08:03:00 Visit Reason SURGERY-RIGHT TOTAL KNEE (GABRIELA) Acuity LOS 000 26:09 Address: [address] [place] [id number] Comment: PROVIDER INFORMATION VITALS INFORMATION Vital Sign [...] range between ( 1.3 and 2.9 ) Stearns Abs#: 1.3 x103/mcL -- Normal range between ( 0.0 and 0.8 ) Auto Baso %: 0.0 % -- Normal range between ( 0.2 and 2.0 ) Auto Stearns %: 9 % -- Normal range between [...] Follow up: With: Address: When: Trenton Redd [address] [place] [address] [address] [place] [address] [facility] (1) 10/01/2021 11:00 AM DIAGNOSIS Acute pain of right knee Comment: PHYS DOC NOTES [facility] 03-04-2021 Note [id number] 03-04-2021 Note [id number] 03-04-2021 Note [id number] 03-03-2021 Note Education Materials POST OPERATIVE TOTAL [...] #8 follow up in office with physician dental ceramist assistant Justo Redd as scheduled #9 [facility] [...] to the nearest hospital's emergency services department. [facility] 03-03-2021 Note [facility] Summary PERSON INFORMATION Name ZAINA WINTERS Age 70 Years 1950 Sex MALE Language American PCP Tonja ERNANDEZ, Jeannine Alfonso Marital Status Med Service Observation Acct# Arrival 03/02/2021 05:52:00 Visit Reason SURGERY - LEFT TOTAL KNEE POSSIBLE STEMS AND AUGS - NEX GEN TIBIA Acuity LOS 000 26:57 Address: [address] [place] [address] Comment: PROVIDER INFORMATION VITALS INFORMATION Vital Sign [...] range between ( 1.3 and 2.9 ) Stearns Abs#: 1.9 x103/mcL -- Normal range between ( 0.0 and 0.8 ) Auto Baso %: 0.0 % -- Normal range between ( 0.2 and 2.0 ) Auto Stearns %: 10 % -- Normal range between [...] range between ( 74 and 118 ) [facility] Lab Order 03/03/2021 [...] Follow up: With: Address: When: Trenton Redd [address] [place] [address], [facility] [address] [address] Business (1) 03/15/2021 10:30 AM With: Address: When: Jeannine Evangelista [address] [place], [place] [id number] Business (1) DIAGNOSIS Aftercare following left knee joint rep (more content not included)... [facility] 09-23-2020 History of Present illness Narrative Instructed on policies and procedures. documented in this encounter [facility] Phone: Evaluation note Diagnosis Persistent atrial fibrillation [...] both lower extremities documented in this encounter [employer] Phone: evaluation note* Diagnosis Left thigh pain- Primary Pain in soft tissues of limb Muscle strain of left thigh, subsequent encounter documented in this encounter [facility] HealthcareEvaluation noteNo assessment information availableShel[facility] Work Phone: Evaluation note* Diagnosis Dermatophytosis of nail- Primary Dystrophic nail Other specified disease of nail Pain around toenail, right foot Pain around toenail, left foot documented in this encounter [facility] HealthcareEvaluation note* Diagnosis Acute right otitis media- [...] legs syndrome (RLS) documented in this encounter [facility] HealthcareEvaluation note* Diagnosis Paroxysmal atrial fibrillation (CMS/HCC) Atrial fibrillation documented in this encounter [facility] HealthcareEvaluation note* Diagnosis Permanent atrial fibrillation (HCC) Atrial fibrillation Chronic anticoagulation Encounter for long-term (current) use of anticoagulants Essential hypertension Unspecified essential hypertension Type 2 diabetes mellitus with diabetic nephropathy, without long-term current use of insulin (HCC) History of COVID-19 Obesity, Class III, BMI 40-49.9 (morbid obesity) Morbid obesity documented in this encounter [facility] note* Diagnosis Permanent atrial fibrillation (HCC) Atrial fibrillation Chronic anticoagulation Encounter for long-term (current) use of anticoagulants Essential hypertension Unspecified essential hypertension Type 2 diabetes mellitus with diabetic nephropathy, without long-term current use of insulin ([facility]) History of COVID-19 Obesity, Class III, BMI 40-49.9 (morbid obesity) Morbid obesity documented in this encounter [facility] note* Diagnosis Acute cough- Primary documented in this encounter [facility] HealthcareEvaluation note* Diagnosis Type 2 diabetes mellitus with diabetic peripheral angiopathy without gangrene ([facility]) documented in this encounter [facility] HealthcareEvaluation note* Diagnosis Paroxysmal atrial fibrillation (HCC)- Primary Atrial fibrillation PAF (paroxysmal atrial fibrillation) ([facility]) Atrial fibrillation documented in this encounter [facility] note* Diagnosis Encounter for wellness examination- Primary Mixed hyperlipidemia ([facility]) Mixed hyperlipidemia Primary hypertension ([facility]) Unspecified essential hypertension Type 2 diabetes mellitus with other specified complication, without long-term current use of insulin ([facility]) Vitamin D deficiency 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 Gastroesophageal reflux disease without esophagitis Esophageal reflux Paroxysmal atrial fibrillation ([facility]) Atrial fibrillation POOL (obstructive sleep apnea) Obstructive sleep apnea (adult) (pediatric) Peripheral edema Edema PVD (peripheral vascular disease) ([facility]) Unspecified peripheral vascular disease Lumbar radiculopathy Thoracic or lumbosacral neuritis or radiculitis, unspecified Restless legs syndrome Restless legs syndrome (RLS) GERD without esophagitis Esophageal reflux Type 2 diabetes mellitus with diabetic peripheral angiopathy without gangrene, without long-term current use of insulin ([facility]) Insomnia, unspecified type Morbid (severe) obesity due to excess calories (CMS/HCC) Colon cancer screening declined Screening PSA (prostate specific antigen) Special screening for malignant neoplasm of prostate Benign prostatic hyperplasia with lower urinary tract symptoms, symptom details unspecified Body mass index (BMI) 40.0-44.9, adult (CMS/HCC) documented in this encounter [facility] HealthcareEvaluation note* Diagnosis AF (paroxysmal atrial fibrillation) (HCC) Atrial fibrillation [facility] Diagnosis Primary hypertension (CMS/HCC) Unspecified essential hypertension documented in this encounter [facility] HealthcareEvaluation note* Diagnosis Type 2 diabetes mellitus without complication, without long-term current use of insulin- Primary Acute bacterial conjunctivitis of both eyes Non-recurrent acute suppurative otitis media of left ear without spontaneous rupture of tympanic membrane documented in this encounter [facility] HealthcareEvaluation note* Diagnosis Acute cough- Primary documented in this encounter [facility] HealthcareEvaluation note* Diagnosis Paroxysmal atrial fibrillation (CMS/HCC) Atrial fibrillation documented in this encounter [facility] HealthcareEvaluation note* Diagnosis Localized edema- Primary Edema [...] foot without tophus documented in this encounter [facility] HealthcareEvaluation note* Diagnosis Decreased renal function documented in this encounter [facility] HealthcareEvaluation note* Diagnosis Spinal stenosis, lumbar region with neurogenic claudication- Primary Bilateral leg weakness Muscle weakness (generalized) documented in this encounter [facility] HealthcareEvaluation note* Diagnosis Dermatophytosis of nail- Primary Dystrophic nail Other specified disease of nail Pain around toenail, right foot Pain around toenail, left foot documented in this encounter [facility] HealthcareEvaluation note* Diagnosis Spinal stenosis, lumbar region with neurogenic claudication- Primary Bilateral leg weakness Muscle weakness (generalized) documented in this encounter [facility] HealthcareEvaluation note* Diagnosis Spinal stenosis, lumbar region with neurogenic claudication- Primary Bilateral leg weakness Muscle weakness (generalized) Left thigh pain Pain in soft tissues of limb documented in this encounter [facility] HealthcareEvaluation note* Diagnosis Primary hypertension- Primary Unspecified essential hypertension Type 2 diabetes mellitus with diabetic peripheral angiopathy without gangrene, without long-term current use of insulin (HCC) Benign prostatic hyperplasia with lower urinary tract symptoms, symptom details unspecified Paroxysmal atrial fibrillation (HCC) Atrial fibrillation Morbid (severe) obesity due to excess calories ([facility]) documented in this encounter [facility] HealthcareEvaluation note* Diagnosis Spinal stenosis, lumbar region with neurogenic claudication- Primary Bilateral leg weakness Muscle weakness (generalized) Left thigh pain Pain in soft tissues of limb documented in this encounter [facility] HealthcareEvaluation note* Diagnosis Spinal stenosis, lumbar region with neurogenic claudication- Primary Bilateral leg weakness Muscle weakness (generalized) Left thigh pain Pain in soft tissues of limb documented in this encounter [facility] HealthcareEvaluation note* Diagnosis Spinal stenosis, lumbar region with neurogenic claudication- Primary Bilateral leg weakness Muscle weakness (generalized) Left thigh pain Pain in soft tissues of limb documented in this encounter [facility] HealthcareEvaluation note* Diagnosis Spinal stenosis, lumbar region with neurogenic claudication- Primary Bilateral leg weakness Muscle weakness (generalized) Left thigh pain Pain in soft tissues of limb documented in this encounter [facility] for visit Narrative* Consultation (Routine) - Pending Review Specialty Diagnoses / Procedures Referred By Jamal hwang Referred To Contact Physical Therapy Diagnoses Left thigh pain Muscle strain of left thigh, subsequent encounter Procedures TX OFFICE/OUTPATIENT NEW HIGH MDM 60 MINUTES Trenton Redd PA [address] [facility] [address] [place] [address] Alex Rico, PT [address] [facility] [address] [place] [address] Referral ID Status Reason Start Date Expiration Date Visits Requested Visits Authorized [id number] Pending Review Consult and Treat 03/23/2023 03/09/2024 1 1 [facility] for visit Narrative* Rehabilitation - Outpatient (Routine) - Pending Review Specialty Diagnoses / Procedures Referred By Jamal hwang Referred To Contact Physical Therapy Diagnoses Spinal stenosis, lumbar region with neurogenic claudication Bilateral Leg Weakness Procedures TX PHYSICAL THERAPY EVALUATION LOW COMPLEX 20 MINS TX OFFICE/OUTPATIENT NEW HIGH MDM 60 MINUTES Alley Richard NP [address] [place] [address] Phone: tel: fax: [facility] [address] [facility] [address] [place] [address] Phone: tel: fax: Referral ID Status Reason Start Date Expiration Date V isits Requested Visits Authorized [id number] Pending Review 08/30/2024 02/10/2025 2 2 [facility] Narrative* Rehabilitation - Outpatient (Routine) - Authorized Specialty Diagnoses / Procedures Referred By Contarleth t Referred To Contact Physical Therapy Diagnoses Spinal stenosis, lumbar region with neurogenic claudication Bilateral Leg Weakness Procedures TX PHYSICAL THERAPY EVALUATION LOW COMPLEX 20 MINS TX OFFICE/OUTPATIENT NEW HIGH MDM 60 MINUTES Alley Richard NP [address] [place] [address] Phone: tel: fax: [facility] [address] [address] Phone: tel: fax: Referral ID Status Reason Start Date Expiration Date V isits Requested Visits Authorized [id number] Authorized 08/30/2024 10/31/2024 12 12 [facility] [...] mellitus with other specified complication, unspecified whether buttermaker helper insulin use (HCC) Class 2 obesity with body mass index (BMI) of 36.0 to 36.9 in adult, unspecified obesity type, unspecified whether serious comorbidity present Procedures ECHO Complete 2D W Doppler W Color Ej Foster MD [address] [place] [address] [place] [address] [facility] Echo [address] [place] [address] Status Reason Specialty Diagnoses / Procedures Referre d By Contact Referred To Contact Closed Radiology Diagnoses Pain in both lower extremities PVD (peripheral vascular disease) (HCC) Procedures VL LOWER EXTREMITY ARTERIAL SEGMENTAL PRESSURES W PPG Ej Foster MD [address] [place] [address] [place] [address] Status Reason Specialty Diagnoses / Procedures Referre d By Contact Referred To Contact Closed Cardiology Diagnoses Persistent atrial fibrillation (HCC) SOB (shortness of breath) Essential hypertension Other specified diabetes mellitus with other specified complication, unspecified whether buttermaker helper insulin use (HCC) Class 2 obesity with body mass index (BMI) of 36.0 to 36.9 in adult, unspecified obesity type, unspecified whether serious comorbidity present Pain in both lower extremities Procedures Echo 2D w doppler w color complete Ej Foster MD [address] [place] [address] [place] [address] Specialty Diagnoses / Procedures Referred By Contac t Referred To Contact Diagnoses Permanent atrial fibrillation (HCC) Chronic anticoagulation Essential hypertension Type 2 diabetes mellitus with diabetic nephropathy, without long-term current use of insulin (HCC) History of COVID-19 Obesity, Class III, BMI 40-49.9 (morbid obesity) Procedures Echo (TTE) complete (PRN contrast/bubble/strain/3D) TX ECHO TTHRC R-T 2D W/WOM-MODE COMPL SPEC&COLR D TX TTE W OR WO FOL WCON,DOPPLER Shalini Morrow PA-C [address] [place] [address] Referral ID Status Reason Start Date Expiration Date V isits Requested Visits Authorized [id number] Not Required - RTA 02/05/2024 02/04/2025 1 1 Specialty Diagnoses / Procedures Referred By Contac t Referred To Contact Diagnoses Permanent atrial fibrillation (HCC) Chronic anticoagulation Essential hypertension Type 2 diabetes mellitus with diabetic nephropathy, without long-term current use of insulin (HCC) History of COVID-19 Obesity, Class III, BMI 40-49.9 (morbid obesity) Procedures Extended cardiac holter monitor (3 days-14 day) TX EXTERNAL ECG REC>48HR<7D REVIEW & INTERPRETATION TX EXTERNAL ECG REC>48HR<7D RECORDING TX EXTERNAL ECG REC>7D<15D RECORDING TX EXTERNAL ECG REC>7D<15D REVIEW & INTERPRETATION Shalini Morrow PA-C [address] [place] [address] Referral ID Status Reason Start Date Expiration Date V isits Requested Visits Authorized [id number] Not Required - RTA 02/05/2024 02/04/2025 1 1 Specialty Diagnoses / Procedures Referred By Contac t Referred To Contact Cardiology Diagnoses PAF (paroxysmal atrial fibrillation) ([facility]) Procedures Cardioversion external HC CARDIOVERSION Ej Foster MD [address] [place] [address] [place] [address] Referral ID Status Reason Start Date Expiration Date V isits Requested Visits Authorized [id number] Not Required - RTA 02/22/2024 02/21/2025 1 1 Specialty Diagnoses / Procedures Referred By Contac t Referred To Contact Cardiology Diagnoses AF (paroxysmal atrial fibrillation) ([facility]) Procedures Extended cardiac holter monitor (3 days-14 day) TX EXTERNAL ECG REC>48HR<7D REVIEW & INTERPRETATION TX EXTERNAL ECG REC>48HR<7D RECORDING TX EXTERNAL ECG REC>7D<15D RECORDING TX EXTERNAL ECG REC>7D<15D REVIEW & INTERPRETATION Ej Foster MD [facility] [place] [address] Referral ID Status Reason Start Date Expiration Date Visits Re quested Visits Authorized [id number] Closed 02/26/2024 02/25/2025 1 1 History of Present Illness * Nini Todd - 01/22/2020 11:30 AM EST Explained policies and procedures of an echocardiogram/Doppler study. documented in this encounter* Arianna Allen RN - 02/12/2020 9:42 AM EST Tight Barrel Inspector reviewed discharge instructions with patient and spouse. Both verbalized understanding. Denies questions. Copy of discharge instructions given to patient. documented in this encounter Assessments Diagnosis Persistent atrial fibrillation (HCC) Atrial fibrillation Essential hypertension Unspecified essential hypertension SOB (shortness of breath) Shortness of breath Fluid retention Other fluid overload Other specified diabetes mellitus with other specified complication, unspecified whether buttermaker helper insulin use (HCC) Class 2 obesity with [...] mellitus with other specified complication, unspecified whether buttermaker helper insulin use (HCC) Class 2 obesity with [...] doctor prescribes. Do not take any vitamins, eawb-kil-nggzpyt medicines, or herbal products without talking to [...] or uneven pulse. After calling 911, the cocoa powder mixer operator may tell you to chew 1 [...] Where can you learn more? Go to [email or web address] and sign in to your [employer] account. Enter A617 in the Search Health Information box to learn more about Electrical Cardioversion: What to Expect at Home. If you do not have an account, please click on the Sign Up Now link. [employer]. Care instructions adapted under license by [employer]. This care instruction is for use with your licensed healthcare professional. If you have questions about amedical condition or this instruction, always ask your healthcare professional. [employer] disclaims any warranty or liability for your use of this information. Content Version: [id number]; Current as of: April 04, 2014 documented [...] and content) DATE CREATED AUTHOR 12/21/2019 [facility]ital DATE CREATED AUTHOR AUTHOR'S ORGANIZ ATION 06/12/2021 [facility] dical Specialist DATE CREATED AUTHOR AUTHOR'S ORGANIZ ATION 10/25/2021 [facility] DATE CREATED AUTHOR AUTHOR'S ORGANIZ ATION 05/27/2023 [facility] DATE CREATED AUTHOR AUTHOR'S ORGANIZ ATION 07/02/2023 [facility] DATE CREATED AUTHOR AUTHOR'S ORGANIZ ATION 02/28/2024 [facility] DATE CREATED AUTHOR AUTHOR'S ORGANIZ ATION 09/14/2024 [facility] DATE CREATED AUTHOR AUTHOR'S ORGANIZ ATION 10/08/2024 [facility] dical Specialists EPIC Reason for Visit (unrecogniz [...] W Doppler W Color Ej Foster MD [address] [place] [address] [facility] Echo [address] [place] [address] Status Reason Specialty Diagnoses / Procedures Referre d By Contact Referred To Contact Closed Radiology Diagnoses Pain in both lower extremities PVD (peripheral vascular disease) (HCC) Procedures VL LOWER EXTREMITY ARTERIAL SEGMENTAL PRESSURES W PPG Ej Foster MD [address] [place] [address] [place] [address] Status Reason Specialty Diagnoses / Procedures Re ferred By Contact Referred To Contact Authorized Cardiology Diagnoses Essential hypertension Persistent atrial fibrillation (HCC) SOB (shortness of breath) Other specified diabetes mellitus with other specified complication, unspecified whether skilled nursing insulin use (HCC) COVID-19 Procedures Referral to Cardiac Cath TX CARDIOVERSION ELECTIVE ARRHYTHMIA EXTERNAL Ej Foster MD [address] [place] [address] [place] [address] [place] [address] Status Reason Specialty Diagnoses / Procedures Referre [...] doppler w color complete Ej Foster MD [address] [place] [address] [place] [address] Reason Onset Date Comments re: PT today [...] be covered. He gave a reference # [id number]. Reason Comments Toenail Care PCP: Kenia Mace [...] obesity) Procedures Echo (TTE) complete (PRN contrast/bubble/strain/3D) TX ECHO TTHRC R-T 2D W/WOM-MODE COMPL SPEC&COLR D TX TTE W OR WO FOL WCON,DOPPLER Shalini Morrow PA-C [address] [place] [address] Referral ID Status Reason Start Date Expiration Date V isits Requested Visits Authorized [id number] Not Required - RTA 02/05/2024 02/04/2025 1 1 Specialty Diagnoses / Procedures Referred By Contac t Referred To Contact Diagnoses Permanent atrial fibrillation (HCC) Chronic anticoagulation Essential hypertension Type 2 diabetes mellitus with diabetic nephropathy, without long-term current use of insulin (HCC) History of COVID-19 Obesity, Class III, BMI 40-49.9 (morbid obesity) Procedures Extended cardiac holter monitor (3 days-14 day) TX EXTERNAL ECG REC>48HR<7D REVIEW & INTERPRETATION TX EXTERNAL ECG REC>48HR<7D RECORDING TX EXTERNAL ECG REC>7D<15D RECORDING TX EXTERNAL ECG REC>7D<15D REVIEW & INTERPRETATION Shalini Morrow PA-C [address] [place] [address] Referral ID Status Reason Start Date Expiration Date V isits Requested Visits Authorized [id number] Not Required - RTA 02/05/2024 02/04/2025 1 1 Specialty Diagnoses / Procedures Referred By Contac t Referred To Contact Cardiology Diagnoses PAF (paroxysmal atrial fibrillation) ([facility]) Procedures Cardioversion external HC CARDIOVERSION Ej Foster MD [address] [place] [address] [place] [address] Referral ID Status Reason Start Date Expiration Date V isits Requested Visits Authorized [id number] Not Required - RTA 02/22/2024 02/21/2025 1 1 Reason Comments Medicare Annual Wellness Visit Subsequen t Specialty Diagnoses / Procedures Referred By Contac t Referred To Contact Cardiology Diagnoses AF (paroxysmal atrial fibrillation) (HCC) Procedures Extended cardiac holter monitor (3 days-14 day) TX EXTERNAL ECG REC>48HR<7D REVIEW & INTERPRETATION TX EXTERNAL ECG REC>48HR<7D RECORDING TX EXTERNAL ECG REC>7D<15D RECORDING TX EXTERNAL ECG REC>7D<15D REVIEW & INTERPRETATION Ej Foster MD [address] [place] [address] [place] [address] Referral ID Status Reason Start Date Expiration Date Visits Re quested Visits Authorized [id number] Closed 02/26/2024 02/25/2025 1 1 Reason Comments [...] Care Teams (unrecognized sec tion and content) Show Dog Trainer Relationship Specialty Start Date End Date Bernie Adam MD [address] [facility] [place] [address] PCP - ACO Reach 07/07/22 Bernie Adam MD [address] [facility] [address], [place] [id number] PCP - General Family Medicine 08/01/22 Show Dog Trainer Relationship Specialty Start Date End Date Bernie Adam MD [address] [place], [place] [id number] PCP - ACO Reach 07/07/22 Bernie Adam MD [address] [place] [address] PCP - General Family Medicine 08/01/22 Show Dog Trainer Relationship Specialty Start Date End Date Bernie Adam MD [address] [facility] [place] [address] PCP - ACO Reach 07/07/22 Bernie Adam MD [address] [place] [address] PCP - General Family Medicine 08/01/22 Show Dog Trainer Relationship Specialty Start Date End Date Bernie Adam MD [address] [facility] [place] [address] PCP - ACO Reach 07/07/22 Bernie Adam MD [address] [place] [address] PCP - General Family Medicine 08/01/22 Show Dog Trainer Relationship Specialty Start Date End Date Bernie Adam MD [address] [facility] [place] [address] PCP - ACO Reach 07/07/22 Bernie Adam MD [address] [facility] [place] [address] PCP - General Family Medicine 08/01/22 Team [...] May 23, 2023 End: May 23, 2023 Show Dog Trainer Relationship Specialty Start Date End Date Bernie Adam MD [address] [place] [address] PCP - General Family Medicine 08/01/22 Bernie Adam MD [address] [place] [address] PCP - ACO Reach 06/14/23 Show Dog Trainer Relationship Specialty Start Date End Date Bernie Adam MD [address] [place] [address] PCP - General Family Medicine 08/01/22 Bernie Adam MD [address] [place] [address] PCP - ACO Reach 06/14/23 Show Dog Trainer Relationship Specialty Start Date End Date Bernie Adam MD [address] [place] [address] PCP - General Family Medicine 08/01/22 Bernie Adam MD [address] [place] [address] PCP - ACO Reach 06/14/23 Show Dog Trainer Relationship Specialty Start Date End Date Bernie Adam MD [address] [place] [address] PCP - General Family Medicine 08/01/22 Bernie Adam MD [address] [place] [address] PCP - ACO Reach 06/14/23 Show Dog Trainer Relationship Specialty Start Date End Date Bernie Adam MD [address] [place] [address] PCP - General Family Medicine 08/01/22 Bernie Adam MD [address] [place] [address] PCP - ACO Reach 06/14/23 Show Dog Trainer Relationship Specialty Start Date End Date Bernie Adam MD [address] [place] [address] PCP - General Family Medicine 08/01/22 Bernie Adma MD [address] [place] [address] PCP - ACO Reach 06/14/23 Show Dog Trainer Relationship Specialty Start Date End Date Bernie Adam MD [address] [place] [address] PCP - General Family Medicine 08/01/22 Bernie Adam MD [address] [place] [address] PCP - ACO Reach 06/14/23 Show Dog Trainer Relationship Specialty Start Date End Date Bernie Adam MD [address] [place] [address] PCP - General Family Medicine 08/01/22 Bernie Adam MD [address] [place] [address] PCP - ACO Reach 06/14/23 Show Dog Trainer Relationship Specialty Start Date End Date Bernie Adam MD [address] [place] [address] PCP - General Family Medicine 08/01/22 Benrie Adam MD [address] [place] [address] PCP - ACO Reach 06/14/23 Show Dog Trainer Relationship Specialty Start Date End Date Bernie Adam MD [address] [place] [address] PCP - General Family Medicine 08/01/22 Bernie Adam MD [address] [place] [address] PCP - ACO Reach 06/14/23 Show Dog Trainer Relationship Specialty Start Date End Date Jeannine Evangelista APRN - RN [facility] [address] [place] [address] PCP - General Nurse Practitioner Family 01/30/20 Show Dog Trainer Relationship Specialty Start Date End Date Jeannine Evangelista APRN - RN [facility] [address] [place] [address] PCP - General Nurse Practitioner Family 01/30/20 Show Dog Trainer Relationship Specialty Start Date End Date Bernie Adam MD [address] [place] [address] PCP - General Family Medicine 08/01/22 Bernie Adam MD [address] [place] [address] PCP - ACO Reach 06/14/23 Show Dog Trainer Relationship Specialty Start Date End Date Jeannine Evangelista, TUB ATTENDANT - RN [facility] [address] [place] [address] PCP - General Nurse Practitioner Family 01/30/20 Show Dog Trainer Relationship Specialty Start Date End Date Bernie Adam MD [address] [place] [address] PCP - General Family Medicine 08/01/22 Bernie Adam MD [address] [place] [address] PCP - ACO Reach 06/14/23 Show Dog Trainer Relationship Specialty Start Date End Date Jeannine Evangelista TUB ATTENDANT - RN [facility] [address] [place] [address] PCP - General Nurse Practitioner Family 01/30/20 Show Dog Trainer Relationship Specialty Start Date End Date Bernie Adam MD [address] [place] [address] PCP - General Family Medicine 08/01/22 Bernie Adam MD [address] [place] [address] PCP - ACO Reach 06/14/23 Show Dog Trainer Relationship Specialty Start Date End Date eBrnie Adam MD [address] [place] [address] PCP - General Family Medicine 08/01/22 Show Dog Trainer Relationship Specialty Start Date End Date Bernie Adam MD [address] [place] [address] PCP - General Family Medicine 08/01/22 Show Dog Trainer Relationship Specialty Start Date End Date Bernie Adam MD [address] [place] [address] PCP - General Family Medicine 08/01/22 Show Dog Trainer Relationship Specialty Start Date End Date Bernie Adam MD [address] [place] [address] PCP - General Family Medicine 08/01/22 Show Dog Trainer Relationship Specialty Start Date End Date Bernie Adam MD [address] [place] [address] PCP - General Family Medicine 08/01/22 Show Dog Trainer Relationship Specialty Start Date End Date Bernie Adam MD [address] [place] [address] PCP - General Family Medicine 08/01/22 Show Dog Trainer Relationship Specialty Start Date End Date Bernie Adam MD [address] [place] [address] PCP - General Family Medicine 08/01/22 Show Dog Trainer Relationship Specialty Start Date End Date Bernie Adam MD [address] [place] [address] PCP - General Family Medicine 08/01/22 Show Dog Trainer Relationship Specialty Start Date End Date Bernie Adam MD [address] [place] [address] PCP - General Family Medicine 08/01/22 Show Dog Trainer Relationship Specialty Start Date End Date Bernie Adam MD [address] [place] [address] PCP - General Family Medicine 08/01/22 Show Dog Trainer Relationship Specialty Start Date End Date Bernie Adam MD [address] [place] [address] PCP - General Family Medicine 08/01/22 Show Dog Trainer Relationship Specialty Start Date End Date Bernie Adam MD [address] [place] [address] PCP - General Family Medicine 08/01/22 Show Dog Trainer Relationship Specialty Start Date End Date Bernie Adam MD [address] [place] [address] PCP - General Family Medicine 08/01/22 Show Dog Trainer Relationship Specialty Start Date End Date Bernie Adam MD [address] [place] [address] PCP - General Family Medicine 08/01/22 Show Dog Trainer Relationship Specialty Start Date End Date Bernie Adam MD [address] [place] [address] PCP - General Family Medicine 08/01/22 Show Dog Trainer Relationship Specialty Start Date End Date Bernie Adam MD [address] [place] [address] PCP - General Family Medicine 08/01/22 Show Dog Trainer Relationship Specialty Start Date End Date Bernie Adam MD [address] [facility] [place] [address] PCP - General Family Medicine 08/01/22 Show Dog Trainer Relationship Specialty Start Date End Date Bernie Adam MD [address] [facility] [place] [address] PCP - General Family Medicine 08/01/22 Show Dog Trainer Relationship Specialty Start Date End Date Bernie Adam MD [address] [facility] [place] [address] PCP - General Family Medicine 08/01/22 Show Dog Trainer Relationship Specialty Start Date End Date Bernie Adam MD [address] [facility] [place] [address] PCP - General Family Medicine 08/01/22 Show Dog Trainer Relationship Specialty Start Date End Date Bernie Adam MD [address] [facility] [place] [address] PCP - General Family Medicine 08/01/22 Show Dog Trainer Relationship Specialty Start Date End Date Bernie Adam MD [address] [facility] [place] [address] PCP - General Family Medicine 08/01/22 Goals [...] BE BASED ON THE PRIMARY CLINICAL RECORDS. [employer] [facility]. provides no warranty or guarantee of the accuracy or completeness of information in this document.
[2024-11-18 11:19] VITALS: BP 152/91; PULSE 59; TEMP 36.6; O2SAT 96
[2024-11-18] MEDS: LIDOCAINE HCL 2% 400 MG/20 ML MDV INJ (11:53)
[2024-11-18] MEDS: BUPIVACAINE HCL 0.25% PF 25 MG/10 ML VIAL 4 ML INJ (11:53)
[2024-11-18] MEDS: IOHEXOL 240 MG/ML - 10 ML VIAL INJ (11:53)
[2024-11-18] MEDS: METHYLPREDNISOLONE ACETATE 40 MG/ML VIAL INJ (11:54)
[2024-11-18 11:55] VITALS: BP 181/114; PULSE 69; PULSE 70; O2SAT 96; O2SAT 97
--- NOTE | 2024-11-18 11:55 | W.PM.PROCNOT ---
Date of procedure: 11/18/24 Pre-op diagnosis: Pain due to left hip osteoarthritis Post-op diagnosis: same as pre-op Procedure: Procedure: Left hip injection Medications: Bupivacaine 0.25% 4cc, depomedrol 40mg I explained the details of the procedure to the patient including the risks, benefits and alternatives. We had an informed discussion and the patient verbalized understanding and signed the consent form. All questions were answered appropriately.? A time out was performed.? After obtaining a comfortable supine position, the skin overlying the hip, subtrochanteric region, and joint space were prepped with alcohol. A sterile syringe containing the above medication was attached to a 25 guage, 3.5 inch spinal needle under strict aseptic technique. X ray was used to identify the joint space and the femoral neck on the left side.? The needle was than advanced through the subcutaneous tissue after local injection of 1% lidocaine.? The contents of the syringe were gently injected without any resistance into the joint space after contrast (isovue) outlined the appropriate area. The needle was removed and pressure was applied to the injection site to decrease the incidence of ecchymosis and hematoma formation.? A sterile bandage was applied. Post procedural instructions were given to the patient. Anesthesia: Local Surgeon: Ever Guillen Pathology: none sent Condition: stable Disposition: no change
[2024-11-18 11:56] VITALS: BP 192/115
== END 2024-11-18 12:01 | disposition home or self-care (01) ==
PROVIDERS: Visit Provider Anesthesiology
DX: M16.12 Unilateral primary osteoarthritis, left hip (principal); E11.8 Type 2 diabetes mellitus with unspecified complications; Z79.84 Long term (current) use of oral hypoglycemic drugs
CPT/HCPCS: 20610; 36415; 77002; 82948; J0665; J1010; Q9966

== ENCOUNTER 2024-11-28 13:43 | Outpatient (OUT) | payer OTHER, SELFPAY ==
--- OUTSIDE RECORDS SUMMARY | 2024-11-28 13:49 | XMS_ITS | CCD ---
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 Name Role Phone Unavailable Primary Care Provider Unavailabl e MISC, DOCTOR Primary Care Unavailable MATTEVI, ARMADNO Admitting Unavailable MATTEVI, ARMANDO Consulting Unavailable BIPIN ARMANDO Attending Unavailable Rupesh Ulrich Consulting Unavailable Jeannine Evangelista Primary Care Provider Tonja KIM - Jeannine CASH Primary Care P roluis manuel Bernie Adam MD Unavailable Bernie Adam MD Primary Care Provider EVANS Redd Attending Provider [phone] AWAIS Evangelista Primary Care Provider AWAIS Evangelista Primary Care Provider EVANS Redd Attending Provider Trenton Redd Attending Unavailable Trenton Redd Admitting Unavailable Jeannine Evangelista Primary Care Unavailable DAVID AWAD JR Attending UnavailDAVID Rahman JR Referring Unavailabl e JEANNINE EVANGELISTA Primary Care Unavailab DAVID Roman JR Attending UnavailDAVID Rahman JR Referring Unavailabl e JEANNINE EVANGELISTA Primary Care Unavailab Bernie Barrios MD Unavailable Tonja KIM - Jeannine CASH Primary Care P rovijoel SHALINI MORROW Referring Unavailable EVANGELISTA, JEANNINE A Primary Care Unavailab le SHALINI MORROW Referring Unavailable EVANGELISTA, JEANNINE A Primary Care Unavailab le CRISTIAN, EJ F O Referring Unavailable EVANGELISTA, JEANNINE A Primary Care Unavailab le AHMAD, ALI F O Attending Unavailable AHMAD, ALI F O Referring Unavailable EVANGELISTA, JEANNINE A Primary Care Unavailab le RUS, ARIANNA Alfonso Attending Unavailable KAMPFER, KENIA Attending Unavailable KAMPFER, KENIA Attending Unavailable KAMPFER, KENIA Referring Unavailable ARGUETA, VALERIE Attending Unavailable UNALLOCATED, NOMS PROVIDER Referring Unava ilable RUSHER, ARIANNA Alfonso Attending Unavailable KELBLEY, MADDIE Attending [...] MONY Attending Unavailable LIZZETH, ALLEY Referring Unavailable Gijieitis , Ever Gonzalez Attending Unavailable Giedraitis , Ever Gonzalez Attending Unavailable Giedraitis , Ever Gonzalez Attending Unavailable Giedraitis , Ever Gonzalez Attending Unavailable Medications Current Medications [...] extended release oral tablet (1 source) Uncompetitive D-wativw-A-aspartate Receptor Antagonist, Sigma-1 Agonist Start: End: take [...] tablet (12 sources) 5-alpha Reductase Inhibitor Start: take 1 tablet by mouth once daily [...] Diuretic, Angiotensin 2 Receptor Lex Start: End: take 1 tablet by mouth [...] complication, unspecified whether skilled nursing insulin use ([facility]) , Class 2 obesity with [...] 90 capsule 1 12/11/2023 Active polymyxin b 20309 unt/ml / trimethoprim 1 mg/ml ophthalmic solution [...] mouth twice daily as needed HYDROcodone-acetami nophen (Lucinda) 5-325 MG tablet Take 1 tablet by mouth 2 (two) times a day as needed 06/28/2023 02/20/2024 Discontinued (Therapy completed) [id number] 200 actuat albuterol 0.09 mg/actuat metered dose [...] Long-term current use of anticoagulant; 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] 02-05-2024 Episodic Other aftercare (1 source) jail (current) use of anticoagulants; 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: [jail (current) use of anticoagulants] Onset: 02-05-2024 Episodic [...] including parasitic (20 sources) Post-viral disorder; 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: 04-27-2020 10-04-2022 Chronic Other infections; [...] unspecified site] Onset: 05-26-2021 10-04-2022 Episodic Other [employer] infection and poliomyelitis (20 sources) H/O: poliomyelitis; [...] 09-18-2024 HbA1c (Bld) [Mass fraction] 6.4 % [facility] No Panel Informationon 09-18 Interpretation and review of laboratory results Normal formerly [facility] US LOWER EXTREMITY VENO US DUPLEX BILATERALon 07-09-2024 [facility] US LOWER EXTREMITY VENOUS DUPLEX BILATERAL EXAM: [facility] US LOWER EXTREMITY VENOUS DUPLEX BILATERAL [...] II, MD, PHD at 10-Jul-2024 09:19:12 AM [facility] Normal Not Available XR CHEST 2 [...] 05-20-2024 HbA1c (Bld) [Mass fraction] 6.3 % [employer] No Panel Informationon 05-20 Interpretation and review of laboratory results Abnormal [facility] EKG 12 LeadOrdered By: Danny Mascorro on 02-23-2024 Q-T Interval 382 ms [facility] Phone: QRS Duration 96 ms [facility] Phone: QTc Calculation (Bazett) 451 ms [facility] Phone: R Hertel -23 degrees [facility] Phone: T Hertel 22 degrees [facility]reet[facility] Phone: Ventricular Rate 84 BPM YR Free Phone: Greetz Phone: EKG 12 Leadon 02-23-2024 Atrial fibrillation Abnormal ECG ECG not diagnostic for Acute Coronary Syndrome; consider clinical findings When compared with ECG of 12-FEB-2020 08:26, Atrial fibrillation has replaced Sinus rhythm Confirmed by ARIANNA MASCORRO ([id number]) on 02/23/2024 10:09:04 PM [facility] Arianna Mascorro MD - 02/23/2024 [...] 471 ms [facility] R Hertel -23 degrees [facility] T Hertel -19 degrees [facility] Ventricular [...] ARIANNA MASCORRO ([id number]) on 02/23/2024 9:25:47 PM [facility] Arianna Mascorro MD - 02/23/2024 [...] 56 BPM [facility] P Hertel 17 degrees [facility] P-R Interval 204 ms [facility] Q-T Interval 442 ms [facility] QRS Duration 98 ms [facility] QTc Calculation (Bazett) 426 ms [facility] R Hertel -25 degrees [facility] T Hertel 5 degrees [facility] Ventricular Rate 56 BPM [facility] Sinus bradycardia Otherwise normal ECG When compared with ECG of 23-FEB-2024 12:06, (unconfirmed) Previous ECG has undetermined rhythm, needs review Confirmed by ARIANNA MASCORRO ([id number]) on 02/23/2024 9:11:49 PM [facility] Arianna Mascorro MD - 02/23/2024 Sinus bradycardia Otherwise normal ECG When compared with ECG of 23-FEB-2024 12:06, (unconfirmed) Previous ECG has undetermined rhythm, needs review Confirmed by ARIANNA MASCRORO ([id number]) on 02/23/2024 9:11:49 PM [facility] 25-hydroxyvitamin D3 [Mass/V ol]on 02-21-2024 25-hydroxyvitamin D [Mass/Vol] 36 ng/mL 30 - 100 ng/mL [facility] Comment on above: Vitamin D Status 25- OH Vitamin D: Deficiency: <20 ng/mL Insufficiency: 20 - 29 ng/mL Optimal: > or = 30 ng/mL For 25-OH Vitamin D testing on patients on D2-supplementation and patients for whom quantitation of D2 and D3 fractions is required, the QuestAssureD(TM) 25-OH VIT D, (D2,D3), LC/MS/MS is recommended: order code 16272 (patients >2yrs). See Note 1 Note 1 For additional information, please refer to http://education.BrewDog/faq/DLU062 (This link is being provided for informational/ educational purposes only.) Laboratory - Chemistry and C hemistry - challengeon 02-21-2024 Albumin [Mass/Vol] 4.1 g/dL 3.6 - 5.1 g/dL [facility] Albumin/Globulin [Mass ratio] 2.2 {ratio} [facility] ALP [Catalytic activity/Vol] 72 U/L 35 - 144 U/L [facility] ALT [Catalytic activity/Vol] 13 U/L 9 - 46 U/L [facility] AST [Catalytic activity/Vol] 16 U/L 10 - 35 U/L [facility] Bilirubin [Mass/Vol] 0.6 mg/dL 0.2 - 1 .2 mg/dL [facility] Calcium [Mass/Vol] 9.1 mg/dL 8.6 - 10. 3 mg/dL [facility] Chloride [Moles/Vol] 102 mmol/L 98 - 11 0 mmol/L [facility] CO2 [Moles/Vol] 27 mmol/L 20 - 32 mmol/L [facility] Creatinine [Mass/Vol] 0.87 mg/dL 0.70 - 1.28 mg/dL [facility] GFR/1.73 sq M.predicted among non-blacks MDRD (S/P/Bld) [Vol rate/Area] 90 mL/min/{1.73_m2} > OR = 60 mL/min/1.73m2 [facility] Globulin (S) [Mass/Vol] 1.9 g/dL [facility] Glucose [Mass/Vol] 139 mg/dL High 65 - 99 mg/dL [facility] Comment on above: Fasting reference interval For someone without known diabetes, a glucose value >125 mg/dL indicates that they may have diabetes and this should be confirmed with a follow-up test. Potassium [Moles/Vol] 4 mmol/L 3.5 - 5.3 mmol/L [facility] Prostate specific Ag [Mass/Vol] 0.33 ng/mL < OR = 4.00 [facility] Comment on above: The total PSA value from this assay system is standardized against the WHO standard. The test result will be approximately 20% lower when compared to the equimolar-standardized total PSA (Abelardo [place]). Comparison of serial PSA results should be interpreted with this fact in mind. This test was performed using the Siemens chemiluminescent method. Values obtained from different assay methods cannot be used interchangeably. PSA levels, regardless of value, should not be interpreted as absolute evidence of the presence or absence of disease. Protein [Mass/Vol] 6 g/dL Low 6.1 - 8.1 g/dL [facility] Sodium [Moles/Vol] 141 mmol/L 135 - 146 mmol/L [facility] Urate [Mass/Vol] 7.5 mg/dL 4.0 - 8.0 mg/dL [facility] Comment on above: Therapeutic target f or gout patients: <6.0 mg/dL Urea nitrogen [Mass/Vol] 17 mg/dL 7 - 25 mg/dL [facility] Urea nitrogen/Creatinine [Mass ratio] SEE NOTE: [facility] Comment on above: Not Reported: BUN an d Creatinine are within reference range. Laboratory - Hematology and Cell countson 02-21-2024 HbA1c (Bld) [Mass fraction] 6.3 % High NINF [facility] Comment on above: For someone without [...] 1996 panelon 5 Cholesterol [Mass/Vol] 121 mg/dL [facility] - 200 mg/dL [facility] Cholesterol in HDL [Mass/Vol] 40 mg/dL > OR = 40 [facility] Cholesterol in LDL [Mass/Vol] 53 mg/dL mg/dL (calc) [facility] Comment on above: Reference range: <10 0 Desirable range <100 mg/dL for primary prevention; <70 mg/dL for patients with CHD or diabetic patients with > or = 2 CHD risk factors. LDL-C is now calculated using the -Winifred calculation, which is a validated novel method providing better accuracy than the Friedewald equation in the estimation of LDL-C. SS et al. TANA. 2013;310(19): 2275-6366 (http://education.BrewDog/faq/PSK742) Cholesterol non HDL [Mass/Vol] 81 mg/dL [facility] Comment on above: For patients with di abetes plus 1 major ASCVD risk factor, treating to a non-HDL-C goal of <100 mg/dL (LDL-C of <70 mg/dL) is considered a therapeutic option. Cholesterol.total/Ch olesterol in HDL [Mass ratio] 3 {ratio} [facility] Interpretation and review of laboratory results Abnormal [facility] Triglyceride [Mass/Vol] 224 mg/dL High [facility] - 150 mg/dL [facility] Comment on above: If a non-fasting specimen was collected, consider repeat triglyceride testing on a fasting specimen if clinically indicated. Chantell et al. J. of Clin. Lipidol. 2015;9:129-169. Performing Organization Information Site ID: QPT Name: [employer] [facility] Address: [address] [place] [address], [address] [place] [id number] Director: Curtis Lyons MD [facility] Microalbumin/Creatinine rati o panel (U)on 02-21-2024 Albumin DL <= 20 mg/L (U) [Mass/Vol] 0.7 mg/dL See Note: [facility] Comment on above: Reference Range: Reference Range Not established Albumin/Creatinine (U) [Mass ratio] 5 NINF [facility] Comment on above: The ADA [...] [Mass/Vol] 154 mg/dL 20 - 320 mg/dL [facility] [employer] Organization Information Site ID: QPT Name: [employer] [facility] Address: [address] [place] [address], [address] [place] [phone] Director: Curtis Lyons MD [facility] No Panel Informationon 02-20 Interpretation and review of laboratory results Abnormal [facility] PATIENT UNABLE TO VOID; ADVISED TO RETURN FOR COLLECTION. [employer] Information Site ID: QPT Name: [employer] [facility] Address: [address] [place] [address], [address] [place] [phone] Director: Curtis Lyons MD [facility] Cardiac echo study Procedure Ordered By: Arianna Mascorro on 02-05-2024 Ao Root Index 0.86 cm/m2 [facility] Phone: Aortic Root 2.2 cm [facility] Phone: Aortic Sinus Valsalva 3.3 cm [facility] Phone: Aortic Sinus Valsalva Index 1.29 cm/m2 [facility] Phone: Ascending Aorta 3.5 cm [facility] Phone: Ascending Aorta Index 1.37 cm/m2 [facility] Phone: AV Cusp Mmode 1.8 cm [facility] Phone: AV Mean Gradient 3 mmHg [facility] Phone: AV Mean Velocity 0.8 m/s [facility] [employer] Work Phone: AV Peak Gradient 6 mmHg Grant [employer] [employer] Work Phone: AV Peak Velocity 1.2 m/s [facility] Phone: AV Velocity Ratio 0.75 [facility] Phone: AV VTI 18.4 cm [facility] [employer] Work Phone: Body surface area Derived from formula 2.67 m2 [employer] Work Phone: E/E' Lateral 4.69 [facility] Phone: EF BP 55 % 55 - 100 % [facility] Phone: Est. RA Pressure 3 mmHg Grant [facility] Phone: Fractional Shortening 2D 28 % 28 - 44 % [employer] Work Phone: Interpretation and review of laboratory results Abnormal [facility] Phone: IVSd 1.3 cm Abnormal 0.6 - 1.0 cm [facility] Phone: LA Area 2C 26.6 cm2 [facility] Phone: LA Area 4C 25.0 cm2 [facility] Phone: LA Major Hertel 7.3 cm [employer] Work Phone: LA Minor Hertel 6.9 cm [facility] Phone: LA Volume BP 78 mL Abnormal 18 - 58 mL [employer] Phone: LA Volume Index BP 30 ml/m2 16 - 34 ml/m2 [employer] Work Phone: LA Volume Index MOD A2C 33 ml/m2 16 - 34 ml/m2 [employer] Work Phone: LA Volume Index MOD A4C 27 ml/m2 16 - 34 ml/m2 [employer] Work Phone: LA Volume MOD A2C 84 mL Abnormal 18 - 58 mL [facility] [employer] Work Phone: LA Volume MOD A4C 69 mL Abnormal 18 - 58 mL [employer] [facility] [employer] Work Phone: LV E' Lateral Velocity 11.30 cm/s [employer] Work Phone: LV EDV A2C 74 mL [employer] Work Phone: LV EDV A4C 102 mL [employer] Work Phone: LV EDV Index A2C 29 mL/m2 [employer] [facility] Work Phone: LV EDV Index A4C 40 mL/m2 [facility] Work Phone: LV Ejection Fraction A2C 57 % [employer] Work Phone: LV Ejection Fraction A4C 52 % [employer] Work Phone: LV ESV A2C 32 mL [employer] Work Phone: LV ESV A4C 49 mL [employer] Work Phone: LV ESV Index A2C 13 mL/m2 [facility] Work Phone: LV ESV Index A4C 19 mL/m2 [facility] Work Phone: LV Mass 2D 279.8 g Abnormal 88 - 224 g [employer] Work Phone: LV Mass 2D Index 109.3 g/m2 49 - 115 g/m2 Bon S светлана [employer] Work Phone: LV RWT Ratio 0.44 [facility] Phone: LVIDd 5.4 cm 4.2 - 5.9 cm [employer] Work Phone: LVIDd Index 2.11 cm/m2 [facility] Phone: LVIDs 3.9 cm [facility] Phone: LVIDs Index 1.52 cm/m2 [facility] Phone: LVOT Mean Gradient 2 mmHg [facility] [employer] Work Phone: LVOT Peak Gradient 3 mmHg [facility] [employer] Work Phone: LVOT Peak Velocity 0.9 m/s [facility] [employer] Work Phone: LVOT VTI 14.4 cm [facility] Phone: LVOT:AV VTI Index 0.78 [facility] Phone: LVPWd 1.2 cm Abnormal 0.6 - 1.0 cm [facility] Phone: MV E Velocity 0.53 m/s [facility] Phone: MV E Wave Deceleration Time 156.0 ms [facility] Phone: PV Max Velocity 1.0 m/s [facility] Phone: PV Peak Gradient 4 mmHg [facility] [employer] Phone: RVSP 22 mmHg [facility] Phone: Sinotubular Junction 2.3 cm [facility] Phone: TR Max Velocity 2.17 m/s [facility] Phone: TR Peak Gradient 19 mmHg [facility] [employer] Phone: [facility] Phone: Cardiac echo study Procedure on 02-05-2024 [...] Image quality: adequate. No contrast was given. [facility] Radiology Study observation (narrative) [facility] Coding Summaryon 10-25-2021 Coding Summary HTMLBase 64 SkfjlhioOTd4oOh+PGhl YWQ+TO8HNVAiV72khNXr tM1ZB0nDBY7EBANXOARK XK4EUS5udJC6TBljO9Re biAv AbwmyGBkEI14TKn1AMK2 fJhfRPeuzP4voQOnY7e9 WnDeUR43hL84AVttZLBv WmN5LiTuuuvxzBAj I0sqTqFdpOJiHnm+PHRh YmxlIHdpZHRoPScxMDAl JpJhlBhvQT3kNc7gOBKm LWNvbGxhcHNlOiBj i8akJFXeGEduYP3bwLhf A7TbpHX6RNFyl8a0Ph44 dHI+NTChQGA8yWfbVXrv k520GpLfu4xxUXD7 iDTrDUxqOSF9Y47jm4A4 VBRbFSRwNQG2uRG1vM5q yUfsfsrdG8XjeARoTrH3 ATW6pAMacY7mrCsr wpfotN6oQds+W99RLH0S NPRRIG9ACsj5W6BeHvfw dHI+KL89CVYxIV78xXOd oKFhw0osaZp0MaGs THYcNKS2pZmfJXqts4Ae HHMvY83euVYje8Z1LKPd tOyrkXOgZhTuaUN1jG7x MNgxzuglg4boaxtn Iiwef1ckke54xR94E04h XTneYJYbQNG0GTOpJPWz wElifu5vlO4qDb4+IDxj n9spc9vekHd8CcSp AEHhpuDfqNxlCOP4v5Yz Po19G2QtbUowp4ZyOey0 sn11gEHeg7I1wDG7ICgz HQDfwA0nOAowQzP9 UWUyJsEwkR32vHXtLPnr Oo2ovCmehHrxCZ6fWJSo bjusMDUonU8pTYDqaISa rIztWG5qKTEoxnun w893LlDiSSE9HFTpmOWx D4YheJ2qYaEyHQOzTCWj L4FokFUpONvaF916OYch TcL4KAQxkuTvH3Gw SCRjvBmyMtD9l4H4Zi3O n1DtjwedCSD3WFxvEBR2 EzXeJuOvQzG2T1DtRxs6 XJYbqMgnPZ6rL0Wl TSCzbrxbrhrumBN1XEEh GOFyjP00pYHhHUeeSc1r h0K6r089VLRoQMQgvQ14 Jf6yzAxnMAUrfPAP pA4xfrdco7ybftgaYeMe HMWmTZj1FXw8PKRpsBoj EjJlFRP4NgA3WAH8fRBg dJ5smGfpnsdvrS6n Oyc+Q41fhG4kSEH6KKO3 cmshVOZmafQqVT16TE51 L7MoMbnrjSRxpOX+PGRp iaRezVdkZK9bFkGm m7hrq3HfWJseB3NrEJQi UTeqZjk8GHDhAIQ8vGX1 uU0mBPNqOYsmb7G6bZU2 T5PwirXxyo7fx3jl DOQbEUdzA74bbKNso1H4 RGKstKR1MTKyfYngOiEh bI74Czg+VCDohGdvr6Ko Quofy6kvo1vljNu4 IjMwJSIgdmFsaWduPSJ0 o7DwVb55Z50iYJmuILTy KWYlDDDpHGRcaAzmah2y sH4mQy0+PGNvbCB3 vTA1dM4oPTYgIaG2PMic L589UqXjpQJjNwmce8qw n9swoKr9QaNmSUEsnxNh fHywNRP1c5LjFm53 I86lRNlwQRRaICZmYVGo OBDarZuojv3cyB2xLk6+ NC3fq5fken07hT36wVY+ XRZqWGA5gBcyUVdq MLArgO2xVYrySqI7IZDi NlGfwP81dGSaWFuiJk2h tJuvyCbuPE4wNGAuoxyb h179RzYtk9eiNLQk zOHgHWxeSJK2I23ja6X7 EBGiVZRwTJY5wDO9cE0w bGlnbjogbGVmdDsgdmVy hSukHCpjXCjsC380 IHRvcDsnPlBhdGllbnQg TzEjRAa3V8FkLgq6OZPf uQzhKW4qqJKmFEfnIo1m yWnxbFnkUX6jPCQc wuwqu914MwNyx8chMCUh hCCxXQrlOTJ1A11zq5T1 BALpRYAvXKC8yBK4nM3y bGlnbjogbGVmdDsg ejUouZwhJYenYXuoA250 IHRvcDsnPkJpcnRoIERh tAU5DP38LX01sSWjn5W1 eID3W2CtBZXpirvv mjkqiOJ3BCZhUDIqaD39 Cn1lfStcUk9iTGNfTQY3 AEPjpHMxQ2IndE4qJoWo ZFHyYADsA3BguDFe HHzdD685OMyuKtK7VJKg gkOcZ8BxKCOynStgVxQ1 g0Y9Zq2GG0S2RL30OK96 vQSce3F1lEW6S5Cx KSSdbolerkcvgMW7RYMf VHUecL61Ep3qbIqlOs1l SBZsBDB4UOAcgCYwF8Ln kK3qXkOfXQYaJHLn N9FeaIYsOUocV555UYjj NxL5JSKdnaScW7HzMXAz iIoeCxN1e9H0Zx1MYOj5 ZZ99YH74gOHlc6Y0 lWM2Q9GtLRVuajopxjxp mXJ6BQIyJDYztO42Rs6f dCemYs6aKRGhRZX3HXSt tXFgE5QjbV2xTaPu IAKpRYZjD1LqcBQvUVli D852NRazPuS5VTLpluPe L2SgRRPddMvqXwW5x0T8 Md6JCYSzND88PFN8 yCT4QY33FJ38D0FkDnya dGFibGU+PHRhYmxlIHdp ZHRoPScxMDAlJyBzdHls DQ2rTx4bWQDdEUGu vIdytEGtGqJsq8viJQKw WIopCB4oaNuaQ6YhnCZ1 HFCib1q0Sg21U16gR4Wk dXA+TJHdlVD1cSV8 nU6cNzBtLdX2YYptF906 ZvLsiQFwUurmx2yun3fm eGg5PlP7UNXxlkVhvOrt QJV6r0MxRi92P88n IHdpZHRoPSIxNSUiIHZh zThzmi1tzZ5gJn9+PGNv aCG3nUF9sE2nJlAmKnN9 PPgaT724GsAxfOOb Bqlez5hph3beiEd9CbZr TEIcajJcnIpqOXQ8w7Bt Gc59A2TvqWkah1GjTsm2 yj71vAZro3T7zRR1 K3UoFUQtrxqeqUQdrCmt EM5sOWYusrhjMAKfqD1l NUZvW1z1RuBnPcT6VTrs U7KjncN0TJUjrGAm LFhqNUS3B15dp5S3TCCx EVMtVCE1aWN7dV5wdAbk bjogbGVmdDsgdmVydGlj QIiqDBmgT651WRPk xGzcXVRyxW8uOBCyvGFh lCwsGN7gCVPdcsbiHkqO QkVSTElORywgTEFXUkVO V8MvXVfugMX+PHRk CVP2bGiePRomYHAidN5r MWTaQ4i1DbHqXbV8FBin G2IiBIRdawrzXq33bM2p EsByBnC7ACahY8Ir ebH6OZGlsLYiXApsAPB6 S85uo8D3CRYjSSPbAUQ0 aVU5fP7bhDaivhjmyWZb dDsgdmVydGljYWwt ZUfnE317UJPfnEywMnX6 CcPbEvO8QNs0G9YzWrb0 TXFktFdcMU8plQZuXCuz Rq0pvDibnMgbNH5k RCXyjqvbQKUziV2xSZHa eQUjjDduVV0dLOUfcrdu l103OaJrACS2PFDygMUf S4PvjS7uQlKmJMQo LQOcC5YabDMlONpuA172 WIdqJwS0CHQzhqOzY7Ew BILewJfjHpQ3j9N5Er27 MyBZZWFyczwvdGQ+ ASErVAY7oBhgROngEAEx vT2bLBJwN0p3WkCbShF0 TOnrG2RfCLEpfmetJv21 cO7cQnCtZzT1BYtv M5XeagY5OPYtwUEtWRcg DDI0S77si2G4MVLlLTNt UZK2cBH9iH5ehOoxeffl bGVmdDsgdmVydGlj ECcdKXplK496WSKueFrz Lc6QRHK7Q6EhWsa8XGOb uGmwNZ6irBBiGWefOx5d jEmdaUwdCV0fKCUt qdipDWKqnX1mQHYrxDAo tWosOY1cPMWoeopsz238 XdDtMUN6FQClqHLjC9Fa eX1kObSaATYgPHEc F0YzfFHkQZupG709WKuh RaJ2YBBcokXiE7PfJSRu aVurUtH3x3K1Gi9WVOyc dGQ+KN68tq81D5Jd KuvePew0ARFuFRS0iWW1 kI7zSNEiZNsvd9E3wZP1 P2CuewAnmp2gr4mfUUSm OQtvS82cgROgs4K8 YPIeqXJ9XGFjcLufCtHp oJ03Xxl+BRLaeXbdm7Ap Xoggq4deb0cbsTv3JjWv JSIgdmFsaWduPSJ0 g9ZvLt65L89tSZauJRVs DDSjOCIyVQIdjCnprz7w zB4oXy7+BBAyiCK9vIJ0 wV3uEkGlEyL5TRjg E189ReVbdKGfVcefq7iy r6wnzRt5YpRtJFBvkrHz mNtgSAG8m1BbBi40V3Gw lBijb7PgAgz0cu09 rKEii6F2fCY4U9MgBPOb kmjllOXkhQjpNA9eUBWb odxvMANjdZ7eAHRuG9k7 SwMzTfB3KZgsR5Co qxH0GRFtzMLwFPXlaUNL yK0zqvuai3ycuoygCoEe PAAjGEz5YFn0WTChdJjc BnBqIHZ7DkH3VMH7 eZTihG0osSfhpkkjnE4v Oyc+HYb1c3fmrXXfXN2l lRV3PG98KU32uTWeg9S6 oBI8L2PbUVPbofsh kmzxbDO2RKLjAMJqqH29 Dq3keJggYy9eTWPoGAN7 FVDzhZMzC1CszN3nIpYq NLNcRQPjO4UlkNTg BCyzT724NBlfTiZ6DMKv hzHgH9GkKKXvmMxfIkU3 x1B1Zp4HAO08ET77UZ99 jXMai3P1zAY2K1Ku USYldzywqfvtxPI4QDPe CMBczY98Ar0qoDwnSi6h BTQdPAL0CPTgiWXqS4Ze mO2rNmAgFMZkAQIx Y6JqeUXyYCyjL899FQfm ZyA4UQHsclGuS8UzKAEs yOmfJpQ4q3T7So8THm34 QM62WN62aHEmc7N8 iZW9M5WaFRBjlvdsofjy lBZ0GYYwYWOrrU76Uo4r lMwgZr3aFQBjGOX5FKTu fCZsY7XhrG4zAfJk ITVdVGDmO3UupOYdCIvg Y834NGbcOqU0RHMxcjSi C1CvSTYxxPbcPsF2u1H1 Ci4IQLzdvny3Y8Vt PjwvdHI+CA52GQRdGM44 hKVwzLFwa0mbiAa5RzKc PLDkZNS8hKahCSdrs7Gs ZUMkG18oqJRpm0T1 IGN (more content not included)... [facility] Coding Summaryon 10-04-2021 Coding Summary HTMLBase 64 CarjftlnPOv3eZd+PGhl YWQ+LR8LTFIuV39fzSZt vR4JS8lYBJ1RIUQSYLHK KS3CBK2ytID4LZdaF0Gi biAv SltvyJCbPG62LVe1MID0 hOsaPNadwQ5ioDMwD8o5 JsGrPP28eW95UEbnKGAi DiW3IfIgvmmjlDKj Q9fdZsVfwHBfBmc+PHRh YmxlIHdpZHRoPScxMDAl NiYpoOnmNJ2zUc4vPIFa LWNvbGxhcHNlOiBj q7ugPTLpAMmpAI6neVqr N2DqcXV9WOOfp4f9Ej01 dHI+RWBwJVM7yFztYOtj v989OnEfa8xnTTI9 tPBdNUsaBRV6M63dz0S5 RKOsVGEpPRY8aMB6rU7q lUgnpjqoC7PnfVAkOxS6 OYS3qHLmzT0baIim iwewcU9xAbg+D91YLL3V CBEKLM5VSjx8I1TzCrha dHI+ZX78GHVbUV68hORy lDEpz8rhbLa3GyOo WWPbHPE6uWcoWXcdn2Bg MESmQ45jeQQxl6R1GXDr wDwrbARlYvItgXY4xU8d VKphayhri3yhwmtd Hawuf2xeim56tO39C87c ZAktGCAwUGP1HCUgRKYk aTqjvp5alG6pHf9+IDxj d8lcn0tcmCn0EkBh LSZofnLebWtqQCV4p5Pj Py29P5VjtVnuw3ZjUto1 ev80cKKvh7P9cYI5KJfo HDDllJ4vQZudNzM0 QBOyLhWvaE13gUDkERkz Zi6yuFpcxNjjZF5qAHTk anhzXHWtfI8uRMZwpFCg vOvuLC8pWEUvlglt p664TiUbQKX3KFPibUOn I2EkhX6jPoXlPWNdEBCr I9RtkLLeSFpdL717FHhx EnI7HUXwvnQbR6Wv ATWyzSzrKgN9h5H1Zt7U p7BrwjirTQG1HAtkWTI7 KaJmTqKzVnW7P7BqHut4 WLCuzHocDD3tO3Yu TSVfdyucxvnlhBM8KOFp GZYjxA21sOUpQNsqRc5r c9J9w075USVuUHAurB82 Wp1qmSznYVNdiFQT cB3rgfbja4vjkadmJjYw NHAvLOz1TWk7FCVgsPud BfNzSHF6EuT3RFQ8dPKg hO2wuCfigpklsZ7b Oyc+L82kvS2dNXM6MPO2 aaecYRGcrpPmDQ83BO17 K4IvJdkoeSVzkWX+PGRp rdKyrBhaGK1aFcSf n6zob8TuUNioT0BrQVWt XZieSgu4FDTlUCO4qSI2 bV1xWDEwTPucu6X8cTP2 K1TknhXvxb1jc8ta FEBlGLnnY43cjNCep7M0 TIEqaBB7CXPvfYsxWuTb lU21Dwf+KDKzvCuvr4Yb Towpj2pwi8atqGj6 IjMwJSIgdmFsaWduPSJ0 f5McNz74D65gGZmfUYKm PJMgATBnCKZauZzcyw0w eC2gNd2+PGNvbCB3 dCL9lQ0tOPJlVkW0ZEbx Q539CuKdkFEqTgxvb3rz l9vkoUt8FwClVBTrupXp qUhsEBU7h4WzUj19 J11zVYjlTIBqAZMrDLMw MQWscWllep4iyE2cZw1+ TP9zv4pifq26nY43vHB+ PGGcLHN1hCefURmr LCUcjR5iNIjtIqK4XQGd LxEnpL83fVOoIIyeXr0d gXyqzUchUP2mRYEinvcw m434AmTcf7ykGMRt kDGeICmyINT4Q51up6L6 JOXiQHHbVED0bIM8zR1e bGlnbjogbGVmdDsgdmVy aUzcBXqsFEuvA853 IHRvcDsnPlBhdGllbnQg EbFfQBv2B9DbSdm3AWVw wSxiUE0cgWPcNXsaMu4z mWrzuRepXG3cLRMc bdgdd917XsIrg9smOVMk xCPqWJaoJNX6J89ik5F8 ECJoEFTnZDB0pPY7lY0w bGlnbjogbGVmdDsg opPuuCvaEPwnXWnbH644 IHRvcDsnPkJpcnRoIERh uPC3XP77GQ35tCEsq9A8 bGU9C8TxPIArxxbc gfjpyFI6TKCyGQSpwS99 Qq1kpNkpZr0qBHCuQOU2 SMQgsPElD1HldL6jIiVk HABgWRXlJ9MjpQEt KSsqY171FGuzQkK7XPHt snUkC6NqGZWxoJhlJyV8 y8Y5Yi6WV5X3PT22UR62 hVUrw5C4hIT4B0Tt KZUclljeiovluKE1FHKa GQHnfZ86Ke2vwPyiOz6t WSOvNEE8JPUlgEYnW5Pc fU7hFjGsDYEfLIMt R2CsiJCeKWffS492DXth YiV7UDKtrdLyP0XxXURc uUexNtP5v6H3Ug4CPVi2 QV81YC10eSEqk1S6 mRZ4H4NsOKFkzfwhxqst tPY9QYKlSHOhoN70Iq3f eJxbGw1lMYRzBMZ6BEHd dYBaG0AtbV3jTaJu KUBrPMBdG9LfeKRwGNiz A462AZciDzZ4RNVhvcNj T2BrRXZbzUrdGkC0f6O2 Kn8JRIMiCY75ELC7 dDU4KN18MB86D1CoVegg dGFibGU+PHRhYmxlIHdp ZHRoPScxMDAlJyBzdHls MM2xCk9cSSAeEQWj cLeibMGaIgNyy0jhLVBe DZdoEQ8qaLacK4WmxDN7 COUiq4s9Yd42J19nL6Dg dXA+LDXkaTX4oOM4 qN0jLiMbDwS6GSkhS798 VuCgxBUrLnuhi1gyr0rd zNq3QgY8NXUgdvSwfUke ILA6z9YaRe34U59u IHdpZHRoPSIxNSUiIHZh dFvbmc4wfQ6cDc8+PGNv cWR7eDV9pC7lJlJaDwD4 DZbgP946JyIyzKZd Vaqdu8yjt8wauEu5ToCw SHVdhpRjqQoeIXG3x2Ik Av76A2RycTidl0PoUai4 la54iHHaw7I7wGY2 R5SlBYVseotmoRFqxRgp EA9hQMOlaktdVBSvuH7a JJOpX0v3GrQvUxB3YUhp A7OhjsM5QZHruGVq AGhpQTO7I73tx0D3PMYt CDFfUJM1dHV9eK5eeKhh bjogbGVmdDsgdmVydGlj UAzzLNotG105FKIp mDrkVEMgqH1iLETqxBWe yEfbXK7qTWUhlqliFmyU QkVSTElORywgTEFXUkVO Q2OuANjcnVE+PHRk QEV7aJzeEPepANHloM9r UVSyZ3c2AsZhPjS3NHxv V3PkILXwfqneBr35rH7x SxUyEyI5SKjeV9Ya czF7JZUnvUXxFBxfQZM9 M46pm4C5VZSxRJUyIZK9 aCN2qR6pnRtnhbiriZMt dDsgdmVydGljYWwt HMceQ695HIOfkKexDcC3 RyDdKhX1OPk1J4YqPeb7 SRPjqXuvSH0wxQKsHJby Fq6wpExveQpbFS6s XBChcbttOZWxxX3dUYIv uROhjCmyCC1fZIFtbljh f478NaFfTUR0PBZdsLKi V4FyxR3jZhElJHEx PBVfW4KlmHJuECteX369 ZOquSlA3WFSaviRkT1Fj VRZdxFvyXiJ1b5F2Qr25 MyBZZWFyczwvdGQ+ FHLaXZN4yRlwDQdjMCUv aM4yCJMkZ3o4VzApYeN4 YUddQ5WxVTHsjgaoDw98 dU1yWtQyKnQ0NHrc H2SdaoP9ZZXgkPHcNDmp JTG5T07rc7V0NMYiZUGa WIM1yLD4nB4byGycdpmz bGVmdDsgdmVydGlj FMpgYTbsK690HMFcyPio Ye5CFXD9W8CjVsb3XVRy mYjkCV0czZLmKOmdNo8r nKmffWglCO1tHYYv akvzZOLapV8fFWEfxGGl mTiyWX4kSRVkkdefm715 ImHhNQY7TYAwvUXjQ7Od mM7iLpOpSOQxOFJa P5RrmODcRKlcA669ABal RgW5IMIthkRiV2PqYJOv bLodPsN0m1T7Iq7NDyHe cnZhdGlvbjwvdGQ+ BK71jw90W2HfFujbKax9 BYRhSVR1tUV3kF5tNMUv BGxjh7Z7vCV0Q3FolyIk qe1dy2njTAOcZObf X05uqTHxh8K6FRGwzNJ6 CUHjyBiyDuYesB06Qpy+ IVHgcWvrz7PlZjrck3gi s4yxnEi8ZqPzCYVz kuOneYfbQWU2g9BpDy60 P44pHFtaRNUlCWToFRDo KZMcfEqfcg3qoE4fFs5+ FFDpqDU8cLC5rR5w HyHlGqS9QZlfT716DdXf vRWhSzpwb8mqx5ipyZw2 IjIwJSIgdmFsaWduPSJ0 k6LkMn50Q0GowTxe a4CvCdr7tg25gSEhr4T6 mHF8P4OmSVAnorwpqVJn sJuyIR3nGDRjbynuPXHh xK0tKQCsU3h4OaWn EgR7URmtZ0IiaaX5AXZv iKSqXBCbjFZVkQ1kjbgk y8yscigmGoUpJMDsYEq5 ZSj4PZPtxAboVuLx XCV2CyW9BDO2cARohV8k lTigwmobyN1gMpk+UGh5 s2trhNXrZU9dnYO5XD27 RK34sVNwt7T4uZA7 T4EnGKRkdwofqygkxBZ8 PAEtQBPssB72Vn8vbFee Np7iEVLyOGI6FQTqiABe I7UwkK1xLdKhVOZb IVBoO8PheGTgWLhyU929 WCioNbB6OHVduuJdK2Qz IEJzsHhyXdC6z5L1Nq8T SP96EE00OY75iUAc f5Z1hCS4Q7LzIWNexzqz pldakNG9RMJzLFLomW05 Pp6jiEjpMj1hPKDrROO4 FKOsxZTgH8KgtH0i ChOzUNPnOOBdF7VnyKKh SLvpZ138HEoyNfV4LJYv gbOvR9RcAFGyuWayNnO7 d1D2It3CUm52EP11 HS75tXCjb4A5hDQ6L2Aw LWNhhtpxmdfetOT4COSs YCFphV99Tz5ogLbbSf3o TONgVWI6CARjjAHk N5ClqL8xYsJgNMChHCHt A8PteHEuOUpvY195KKiz OfB4ISWxllSfI1EeFJSv lThdPlL8g2K3Ji4N VJnnijq9E5QeVenncYW+ YQ30TLGgBP32aSWsgPWc f9qsrTm2DiMaFZZnKQW2 iOcvKTvyp6ViZWUg Y29 (more content not included)... [facility] Consent Formson 09-23-2021 Consent Forms [id number] #1.00OTGTIFF [facility] Consent Formson 09-20-2021 Consent Forms [id number] #1.00OTGTIFF [facility] MAGR Postoperative Recordon 09-20-2021 MAGR Postoperative Record MAGR Phase II Record Summary Primary Physician: DAVID AWAD DO Finalized Date/Time: 09/20/21 10:05:40 Pt. Name: SINGHZAINA D.O.B./Sex: 1950 MALE Med Rec #: [id number] Physician: DAVID AWAD DO Financial #: [id number] Pt. Type: O Room/Bed: [facility] Admit/Disch: 09/17/21 08:03:00 - 09/18/21 12:10:00 Institution: [...] Signed By: Vianca Celaya RN 09/20/21 10:05 [facility] Outside Recordson 09-20-2021 Outside Records [id number] [facility]-20-2021 Provider Orders [id number] [facility] [id number] [facility] Telemetry Stripson Telemetry Strips [id number] [facility] Electronic Messagingon 09-19 Electronic Messaging --- --- --- --- --- --- --- --- --- From: Ej (Jim)Ej To: ZAINA WINTERS Sent: 09/19/21 04:18:10 AM EDT Subject: Discharge Summary Ready to View A summary regarding your recent visit is available in the Documents section of your Health Record. Normal [facility] .Auto Diff 1on 09-18-2021 Auto [place] % 9 % Normal 1-12 [facility] Comment on above: Performed By: #### 1 [id number], [id number], [id number] #### [facility] (DEFAULT) [address] [place] [address] Baso Abs# 0.0 x10 Normal 0.0-0.2 [facility] Comment on above: Performed By: #### 1 [id number], [id number], [id number] #### [facility] (DEFAULT) [address] [place] [address] Basophils/100 WBC (Bld) 0.0 % Low 0.2-2.0 [facility] Comment on above: Performed By: #### 1 [id number], [id number], [id number] #### [facility] (DEFAULT) [address] [place] [address] Eos Abs# 0.0 x10 Normal 0.0-0.4 [facility] Comment on above: Performed By: #### 1 [id number], [id number], [id number] #### [facility] (DEFAULT) [address] [place] [address] 24034 Eosinophils/100 WBC (Bld) 0.0 % Low 0.9-4.0 [facility] Comment on above: Performed By: #### 1 [id number], [id number], [id number] #### [facility] (DEFAULT) [address] [place] [address] 93669 Lymph Abs# 1.2 x10 Low 1.3-2.9 [facility] Comment on above: Performed By: #### 1 [id number], [id number], [id number] #### [facility] (DEFAULT) [address] [place] [address] 38449 Lymphocytes/100 WBC (Bld) 9 % Low 14-48 [facility] Comment on above: Performed By: #### 1 [id number], [id number], [id number] #### [facility] (DEFAULT) [address] [place] [address] [place] Abs# 1.3 x10 High 0.0-0.8 [facility] Comment on above: Performed By: #### 1 [id number], [id number], [id number] #### [facility] (DEFAULT) [address] [place] [address] Neut Abs# 11.6 x10 High 1.5-9.2 [facility] Comment on above: Performed By: #### 1 [id number], [id number], [id number] #### [facility] (DEFAULT) [address] [place] [address] 19918 Neutrophils/100 WBC (Bld) 82 % Normal 44-88 [facility] Comment on above: Performed By: #### 1 [id number], [id number], [id number] #### [facility] (DEFAULT) [address] [place] [address] CBC w/ Auto Diffon 2 Erythrocyte distribution width (RBC) [Ratio] 14.0 % Normal 11.5-15.0 [facility] Comment on above: Performed By: #### 1 [id number], [id number], [id number] #### [facility] (DEFAULT) [address] [address] Hematocrit (Bld) [Volume fraction] 36.8 % Normal 34.8-51.9 [facility] Comment on above: Performed By: #### 1 [id number], [id number], [id number] #### [facility] (DEFAULT) [address] [place] [address] 75582 Hemoglobin (Bld) [Mass/Vol] 11.9 g/dL Normal 11.8-17.7 [facility] Comment on above: Performed By: #### 1 [id number], [id number], [id number] #### [facility] (DEFAULT) [address] [place] [address] 86230 Instr WBC 14.2 x10 Invalid Interpretation Code [facility] Comment on above: Performed By: #### 1 [id number], [id number], [id number] #### [facility] (DEFAULT) [address] [place] [address] 08555 Man Diff? Auto Normal [facility] Comment on above: Performed By: #### 1 [id number], [id number], [id number] #### [facility] (DEFAULT) [address] [place] [address] 14919 MCH (RBC) [Entitic mass] 30 pg Normal 24-34 [facility] Comment on above: Performed By: #### 1 [id number], [id number], [id number] #### [facility] (DEFAULT) [address] [place] [address] 36135 MCHC (RBC) [Mass/Vol] 32 g/dL Normal 26-37 [facility] Comment on above: Performed By: #### 1 [id number], [id number], 3206080 #### [facility] (DEFAULT) [address] [place] [address] 76143 MCV (RBC) [Entitic vol] 94 fL Normal 81-100 [facility] Comment on above: Performed By: #### 1 5938291, [id number], 1308364 #### [facility] (DEFAULT) [address] [place] [address] 98668 Platelet 181 x10 Normal 138-427 [facility] Comment on above: Performed By: #### 1 3980530, [id number], 4808820 #### [facility] (DEFAULT) [address] [place] [address] 53971 Platelet mean volume (Bld) [Entitic vol] 10.4 fL High 6.3-10.2 [facility] Comment on above: Performed By: #### 1 [id number], [id number], 8064749 #### [facility] (DEFAULT) [address] [place] [address] 57931 RBC 3.92 x10 Normal 3.70-5.30 [facility] Comment on above: Performed By: #### 1 5061801, [id number], 6744868 #### [facility] (DEFAULT) [address] [place] [address] 96553 WBC 14.2 x10 High 3.5-10.5 [facility] Comment on above: Performed By: #### 1 6670026, [id number], 2643958 #### [facility] (DEFAULT) [address] [place] [address] 37778 Electrolyte Panel Standardon 09-18-2021 Anion gap [Moles/Vol] 12.0 mmol/L Normal 5.0-19.0 [facility] Comment on above: Performed By: #### 1 [id number], [id number], 0610751 #### [facility] (DEFAULT) [address] [place] [address] 02642 Chloride [Moles/Vol] 98 mmol/L Low 101-111 [facility] Comment on above: Performed By: #### 1 8605832, [id number], [id number] #### [facility] (DEFAULT) [address] [place] [address] 12423 CO2 [Moles/Vol] 28 mmol/L Normal 21-32 [facility] Comment on above: Performed By: #### 1 6178853, [id number], 8980920 #### [facility] (DEFAULT) [address] [place] [address] 80614 Potassium [Moles/Vol] 3.8 mmol/L Normal 3.6-5.1 [facility] Comment on above: Performed By: #### 1 4494325, [id number], 9896485 #### [facility] (DEFAULT) [address] [place] [address] 79427 Sodium [Moles/Vol] 134.0 mmol/L Low 136.0-144.0 [facility] Comment on above: Performed By: #### 1 5907073, [id number], 3951399 #### [facility] (DEFAULT) [address] [place] [address] 30849 Inpatient Patient Summaryon 09-18-2021 Inpatient Patient Summary [address] [address] Patient Discharge Instructions Name: ZAINA WINTERS : 1950 Patient Address: [address] [place] [address] Primary Care Provider: Name: Jeannine Hurley After you are discharged if you find you have any questions, please, call [phone] ext [phone] to speak to a nurse. Discharge Diagnosis: Acute pain of right knee Prescription Information: If you have been given a prescription for narcotics, seek immediate medical attention if you have any difficulty breathing or any sudden status changes such as confusion and sleepiness. If you or anyone you know is experiencing suicidal thoughts, mental health, alcohol and/or drug addiction problems; contact the [facility] 05/09 Crisis Hotline -Text 4HVPP in 601786. If you received any narcotics, sedation, or [...] business decisions or sign any legal documents [facility] would like to thank you for allowing us to assist you with your healthcare needs. The following includes patient education materials and information regarding your injury/illness. ZAINA WINTERS has been given the following list of follow-up instructions, prescriptions, and patient education materials: Follow-up Instructions With: Address: When: [place]on Redd [address] [place] [address], [address] [place] [address] [facility] (1) 10/01/2021 11:00 AM Medications [...] to tolerance (more content not included)... Normal [facility] Pharmacy Noteon 09-18-2021 Pharmacy Note I [...] [Verified on: 09/18/2021 10:36 EDT] Emiliano Montgomery [facility] Progress Note - Nurseon 08-0 Progress Note - Nurse Discharged to home. Prescriptions and instructions reviewed with and given to pt. He verbalized understanding. Taken to awaiting vehicle via wheelchair. All belongings sent with pt. [Electronically Signed on: 09/29/2021 14:49 EDT] Mildred David RN [Verified on: 09/29/2021 14:49 EDT] Mildred David RN [facility] Progress Note - Nurse POC discussed with pt. Educated on safety and ADL care once discharge home. He verbalized understanding [Electronically Signed on: 09/29/2021 14:49 EDT] Mildred David RN [Verified on: 09/29/2021 14:49 EDT] Mildred David RN [facility] Anesthesia Noteon 09-17-2021 Anesthesia Note Patient: ZAINA WINTERS Age: 70 years Sex: MALE : 1950 Associated Diagnoses: None Author: Eugene Castaneda MD Postoperative Information Post Operative Note: Operative Day. Anesthetic utilized: General. 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 Aftercare following left knee joint replacement surgery / SNOMED CT 047791664 / Confirmed Resolved: COVID-19 / SNOMED CT 4871804950 Resolved: Diabetes / SNOMED CT 745154601 Physical Examination VS/Measurements Vital Signs (last 24 [...] on: 09/17/2021 14:12 EDT] Eugene Castaneda MD [facility] Anesthesia Note Patient: ZAINA WINTERS Age: [...] All Problems Atrial fibrillation / SNOMED CT 54001721 / Confirmed FH: hypertension / SNOMED CT 956552759 / Confirmed History of post-polio syndrome / SNOMED CT 257084439 / Confirmed Aftercare following left knee joint replacement surgery / SNOMED CT 434365538 / Confirmed Resolved: COVID-19 / SNOMED CT 7108681387 Resolved: Diabetes / SNOMED CT 212460901 Histories Family History: CA - Cancer of colon Grandparent Heart attack Mother Grandparent Tobacco user Mother Father Brother Procedure history: Arthroplasty of knee using cement ([id number]) on 03/02/2021 at 70 Years. Back (641185215). Comments: 02/04/2021 10:08 Oliva Van RN surgery [...] mmHg (SEP 17 10:10) DBP 90 mmHg (AUG 05 10:10) Airway: Mallampati classification: II (soft palate, fauces, uvula visible). Temporomandibular joint mobility: Good. Mouth: Adequate opening, Dentures ( Upper dentures ). Neck: Full range of motion. Respiratory: Lungs are clear to auscultation. Cardiovascular: Regular rhythm. Neurologic: Alert, Oriented. Review / Management Laboratory Results Plan [place] [employer]hesi[employer]#(A SA) physical status classification: Class III. Anesthetic Preoperative Plan Anesthesia: General. , Regional adductor canal block for post op pain control per surgeon request. Anesthetic plan, risks, benefits, and alternatives discussed with the patient and/or family. Patient verbalized understanding. [Electronically Signed on: 09/17/2021 11:19 EDT] Eugene Castaneda MD [Verified on: 09/17/2021 11:19 EDT] Eugene Castanead MD [facility] MAGR Intraoperative Recordon 09-17-2021 MAGR Intraoperative Record MAGR Intra-Op Record Summary Primary Physician: DAVID AWAD DO Finalized Date/Time: 09/17/21 14:17:42 Pt. Name: ZAINA WINTERS./Sex: 1950 MALE Med Rec #: [id number] Physician: DAVID AWAD DO Financial #: [id number] Pt. Type: D Room/Bed: [facility] Admit/Disch: 09/17/21 08:03:00 - Institution: Case Times [...] Role Performed Surgeon - Primary Anesthesiologist of Magazine Designer Record Time In 09/17/21 10:35:00 09/17/21 10:17:00 [...] CST Meyer PA-C, Matthew J Role Performed Dining Room Coordinator Scrub Personnel Physican Shirring Machine Operator Automatic Time In 09/17/21 10:17:00 09/17/21 10:17:00 09/17/21 [...] By Zhanna Urrutia RN Scrub 10% Povidone-Iodine Marked Tree Prep Area (more content not included)... [facility] MAGR Intraoperative Record MAGR Intra-Op Record Summary Primary Physician: Finalized Date/Time: 09/17/21 10:39:41 Pt. Name: ZAINA WINTERS Carmen /Sex: 1950 MALE Med Rec #: [id number] Physician: DAVID AWAD DO Financial #: [id number] Pt. Type: D Room/Bed: [facility] Admit/Disch: 09/17/21 08:03:00 - Institution: Case Times [...] RN, Brayan Altamirano Role Performed Anesthesiologist of Magazine Designer Magazine Designer Record Time In 09/17/21 09:55:00 09/17/21 09:55:00 [...] Signatures Signed By (more content not included)... [facility] MAGR PACU Recordon MAGR PACU Record MAGR PACU Record Summary Primary Physician: DAVID AWAD DO Finalized Date/Time: 09/17/21 15:19:58 Pt. Name: SINGH ZAINA Fierro./Sex: 1950 MALE Med Rec #: [id number] Physician: DAVID AWAD DO Financial #: [id number] Pt. Type: D Room/Bed: [facility]/1 Admit/Disch: 09/17/21 08:03:00 - Institution: PACU Case Times MAGR Entry 1 In PACU I 09/17/21 14:10:00 Discharge from PACU 09/17/21 15:15:00 I Last Modified By: Vianca Celaya RN 09/17/21 15:19:57 Finalized By: Vianca Celaya RN Document Signatures Signed By: Vianca Celaya RN 09/17/21 15[facility]19 [facility] 09-17-2021 MAGR Preoperative Record MAGR Pre-Op Record Summary Primary Physician: DAVID AWAD DO Finalized Date/Time: 09/17/21 10:43:23 Pt. Name: ZAINA WINTERS /Sex: 1950 MALE Med Rec #: [id number] Physician: DAVID AWAD DO Financial #: [id number] Pt. Type: D Room/Bed: [facility]/1 Admit/Disch: 09/17/21 08:03:00 - Institution: Pre-Op Case Times MAG Pre-Care Text: Patient will be optimally prepared [...] By: Vianca Celaya RN 09/17/21 10:43 Normal [facility] Nutrition Noteon 09-17-2021 Nutrition Note Pt [...] with in house available Ensure Compact BID. [facility] Progress Note - Nurseon Progress Note - Nurse IV fluids stopped for good PO intake at this time [Electronically Signed on: 09/24/2021 15:45 EDT] Raquel Duvall RN [Verified on: 09/24/2021 15:45 EDT] Raquel Duvall RN [facility] XR Knee One or Two Views [...] MD 09/17/21 4:07 pm Technologist: Abilio AMIN [facility] Progress Note - Nurseon Progress Note - Nurse Pre-op phone call complete. Reviewed arrival time of 0830 on Monday09/17/2021 and pre-op instructions with pt. Pt voiced understanding and is without further questions or concerns at this time. [Electronically Signed on: 09/16/2021 09:25 EDT] Marley SUTTONJoycejaelyn Altamirano [Verified on: 09/16/2021 09:25 EDT] Marley SUTTONBrayan Normal [facility] 2019 Novel Coronavirus (CoVI D-19), JULISSA LCon 09-14-2021 SARS-CoV-2 (COVID-19) RNA JULISSA+probe Ql (Unsp spec) Not detected Invalid Interpretation Code Not Detected [facility] Comment on above: Order Comment: [id number] Result Comment: This nucleic acid amplification test was developed and its performance characteristics determined by [employer]. Nucleic acid amplification tests include RT- PCR [...] detected) result in this assay. Performed At: [address] [id number] Zay Landa PhD Ph:[phone] Performed By: #### 6 [id number] #### [facility] (DEFAULT) [address] [place] [address] Coding Summaryon 09-14-2021 Coding Summary [employer]Base 64 TfbhejtyBZd7bMc+PGhl YWQ+FN8GUWKmQ75afYYc lX7VD1lVSJ4TEUPWTTOX DL3OWN8ruHU1RAmrI5Qf biAv WwqvaAYyVW79BVk1KGA1 mIzrVXgmqW5bmFKiS9s5 AyHqPB23oP43TJxzJDWq SbH9BtUooebsySXn X4yxOwJzvCFeXmx+PHRh YmxlIHdpZHRoPScxMDAl AwGazPcsSE1yQl5dBPHa LWNvbGxhcHNlOiBj d2cpUCElJRciTB1lyXrt A0QbnWE1KWObu1q4Qu73 dHI+TQRoVHN6pOnsFRdj h212XfSwk2syKFV4 nXXjJHrbERD9U90zx3A6 OVQbRPBeDML8uOC3xY2v zDckwfvlE4IieUArTbD6 ERH2hTEnjP2dtPnu zzugzH9dQac+E83FJA3D SAKOGF7TMbk6A7AvChmo dHI+KP30SBOoKY89uGBp pIHdo9ewjHe5YdXj XVSsYLJ0vOogVMrop6Dd JKTkL46exRUol4V0UXNq lAvcvSCvYgMobRN1mY7c NGisdkpco4kuhuos Kddyz3rsvj38cX51X02r AYmuIFRgYHT5VVWeUXSz mYqzhl9vvA3uKh8+IDxj j2rvv0ckmPb4ThRr AYEhruOsnXdfBAC3p6Wy Fc40X6AtbAzct4LcArx4 du39oPUyi0G2sFR8KUkp AWXfeP4jKBoyQwN0 XSBuAcVxqF69vZZdUWoy Wm9tePerzFnkJP7uFDGz xshoSHDkqR2tIFQkqPBn mQclCN8wZFQsqcol c714CyEaQXP3QXOleHPo F6AfoR3oOjZtKGTzKXHr N5EeaEGuEXzvW214OPfg DpB0CDHeglHkK7Pp DDOpkNclIpQ1a0I3Vm8U o9MedryqTMA6ZOjxCXL9 TkTtRmZuFjT8U6AjJfw6 UZIxhKwzTI3lE6Xf KEHpoyuobckqeVW1VKRb CIQgzU74sHCiSGwcLg5f y0V5b370ZPYpLQFciN53 Oi6bqEmzBNFsqIMG uR4myozfv1tgufmwRmUp MIJcFYo0MWm2UFAisMsw FfEzFXK8KoM2OSZ3kXQu nT7snAgwndjtmK2u Oyc+Y98eoP1qLOR9YDM1 blwoLWOawjQlOS73JD95 N5IePfwlxDAwpAA+PGRp piFppLigGC9yUfKv k4adk7DfXMbxO7IzVCYv HWasGcu1ZRIhAWA9mVX7 sZ7dYPWvKOvet3X1sQY0 M8DjmzUkuw5lc3ng AALvEUhiI61ewVIoz9S6 CPNfzRJ6XECsyUjdRzGf pE75Ehx+RHYbhWvum0Id Xmvbs6hna4jdvGt8 IjMwJSIgdmFsaWduPSJ0 u1MdNx61P66tECqdRNPk XOAwUZOvNMGyoKfyhl5l cY4oUm9+PGNvbCB3 wZW5vE8mFUSuYfP0ALbj O708UzCpkSAaPfhus4ur x1zpfFz8RyXcUJAfonXv mVrqAXT1c5JoXh27 O74cOVhcIWMqTGPgSKLv PGUxrDnqxc8wyO9aTi2+ LQ0gs7dcux62jX74hVG+ OPTwYQK1zQzeIJxj NOKybH7cNKleGzJ5NHOe PiGbzS10sRQeUAvmXj4j sSqvdQeuSE3vHXFbcnji u866XvZtp7xrMYWw mXOaTVlsMDK4Y15zp6N3 LOLzKBGsUTI6cJK3xV8t bGlnbjogbGVmdDsgdmVy oZblOJqbWBieZ560 IHRvcDsnPlBhdGllbnQg FjQgPGy6B3SrGsf1YCYl jBlmYZ8inFUfYKzbLa2r zMhbvUksWG6uXVDc wcgsb700KoRit0llCWXx wVNvWHbzWKT1M75cu9P3 URYjLCBkIOA1kNM2lL6g bGlnbjogbGVmdDsg gcUzlYayFOjuJDduC495 IHRvcDsnPkJpcnRoIERh jYG5JC24TD09oYTts3A1 hEI1S0SiZLDemfgn xmabzGA4YZIwNSIbaL16 Ia2piGprRv5qMCGzEOO7 RQKlfRHwB8IywW4hVzFp FPSbSFPfG1VbwAFv QVjxW917GUfiBuM5PFNp quCwN3EmLGWslVvpHzM5 o2C3Vj0PA4V6BS54BY68 iLNdz1X9tFI1V0Zj FBPqpweibjroqGB0VQQu WYAkwE14Yb4zqHawHf6x TYPmQZW3MUJdwENsL8En kE0kKqQmVPThKJBe T2CywXKdCPrgG483FKee ZoF7QZYhscTkP5ShJGYb mMcnHfI4g3F7Px1UPOn9 XH49VQ68cANep9L0 mGK9N9BvKOQhwqpaienb jZK1HVRhAEBlvL39Hh4u rKknRd2yELBjXZS0CKEf lRCkE9PvqG5pQkGu EOKnEYHqK3ZkxEHhNJnq E001ABghGpZ1WJZntyQj E5SySWFvfPvwDsU1a1N7 Zc6WDIHzFL23VTQ0 mHS2RG14XW64W0DwKmfe dGFibGU+PHRhYmxlIHdp ZHRoPScxMDAlJyBzdHls DM6gUx6mKSGlRUPh pPripROjCdAka5pfRVNl DXhtVH9dsPycA3NbnTE2 FYMsa5e2Id80N28zU9Bt dXA+XEAfvVF0hOH2 uB5uMkRhRkL4MNnsH475 PhErlAViXmwlz0wwu9xz qTo1MtZ8LESqzsCjlKkf FBO3r7EmNx37Q64h IHdpZHRoPSIxNSUiIHZh iIckjd7ouT5bTw4+PGNv rNT2iXE6fV3yHnDqPzH0 FNopZ767ZrAkuVPx Oknoh3tlz1utlCz5ZnTw EXLaraGnqBgmKFJ5n1Cb Ua05E3KlxApav8JwQhk4 yt29xIBhg9C9hXG3 D2WbXKHnytltpYOxrZuv TS0mBWApptmwAZOjlW6c AGNqI4h9XbLtVnX5YJws F9DghjW4FLNhlXBn TKveXBW6H17zx4B4TXAs IIEbMGG9yWT6bD3xwKxj bjogbGVmdDsgdmVydGlj SIbeYBecR986YLCq kTrtFPQuoK4sAVOouXZs oBkmRY5wPYHlcfqqOqcP QkVSTElORywgTEFXUkVO H5EdERlowBT+PHRk CWL0iRizIRrtSFUviE1a HDXeP6a9YhVtJzC4XPde W0IdHLEgvcbpQj80jM3k ZcZtRrO6LOssC8Pd xgX9FCSljFIpUZciYUY9 E42mw9A2HSUbIJHiKOV2 pLG4cY9ofOrbiacqdHWd dDsgdmVydGljYWwt HPqbJ642JPImkNgwYkI6 QxEzHrC6ODg2E2YwEpr8 UZEayIwcIU2bmTOhKPvw Mr9ifEynvZsdOX2e VEJkrzcnILWwjJ3bNKQt lLOthGhfSU5sKYXpawfu o934ZxBmWOH1PJEpnWOc N9JmyI8xJjSeZGUy IIAoT1GvvUBzSItpV138 FVxsDdW7IZWojzNgJ0Bg KMDffRujNrF9x1B0Va99 MiBZZWFyczwvdGQ+ OFMwDTE7bKdsFGrsOVOv fO0yRUSzS2o7RnWuMvL5 NCsqX5SsPCUehoejEi04 aV3lQkPdPmO0FQom F3IrlaA6WOCtrOIaLTnl UAR5U98el0S4PZSaZSQp JVD9jVK8lK7blUvwkidf bGVmdDsgdmVydGlj GDodDCavN401UWRyuBtc Ey1JPQT7J1IxVaf1WXGr gPojRP9xpGAvPGwiAi9q lMiwoAlrLP1wMBQp vrjxKIMtkK5mAQXpbMBp iBzcLZ7rDZFkxipff839 HsAyVME8QBZoqUSoN7Cm pI0mLtDjNUIeBNPm Z4ZvvDVkBQfiM303ZFdn JuP4SHPasfFjB2IkGWSf uAmcDsB8p8R4Vh4HBWbl dGQ+LC80pp36F4Ov GusyTxj1BGTcWFY9hCE5 jD7cLDKeHOgfe2T9eRA3 S5FpydSvso1rp5chWYOe FLwzR45gaSXaq3G8 PFFydPR3YYAnjQdaVqPp fS26Uml+MRGhtQqga1Mg Jhodr6bei1mwsUw8AnOn JSIgdmFsaWduPSJ0 x4GfEk85P68lHZvzAZFm JRDtYWWgGRVnaYqyep2w lT8uDd3+AHOwtPQ8bDK1 tY2oGvWcEvB9HHvg Y347JoAbtWVhHqemj7pr k7nvuKs5WdQwLBIyrxEm bTinTZP0z7UrBt07W3Xr aLeel8ZfSok2vk03 jWEcf7Y7mVG8I8AzWXRe ufqwuMZrlKppIT9jTMUs jppzUIMmpS5oPKZeQ6a0 VhXbGgH5IGisF0Em smK7ETZqqPRzXOUelWWO rA3tcjtiy2oyixebDsSy KZRcUYh1BYr2AWDujHlj JsJhQFP0HkU4SAG8 rLMbsY0fmUbvxufdzO8c Oyc+OUa8z4hfzNWwMA6l tFG9XR69RR78lOZqr6C5 sZY3N7SzGZYfljzp uzalxGP2LHUfJRTncQ91 Yq0ouYvgAf2aFIZmLCC8 DRXsdTWpR0TizL8gJcYi FUPgODJsZ3MksMRi ZChlD355QGkfHvG0LXLv afXvW0HzRYYbcMfsEyE6 d4R2No3QLN41NF66OD17 jJEja9X7jMJ1S2Ru ADQdnkgiwadsgFN0BKYt XKIurB52Rp4pwRukYb4e VMYxMTJ1RYKxaHDeV7Pj pL7aJrQiBIBvNPPf N6RdpWQpQSunV612KJwh BxR2URGmswBgI1VnLWJf hOdcWxX8m0G4Fx8MNc82 PF48FG90lFMgn6J5 uNS8O5QpDFCbpqiqvyee qNK9TBAwPSOqjH67Yn8p jOqjDs4oGUPuMJF4AMRi bYNpY0VicM9jDlMh BUPrTJNtG0CeqTNlEZrn T327XGufFmO7ZYNzsfWm N0GtNFBejSjrEvY9h7F1 Xt0GGYlxeoo4I2Kl PjwvdHI+QF74YTFcRQ04 tUPwkRFbc8pfmMr4VeHt DUQeAJK4mUaqEYlbh8Cm GJQpN08fwIDow7G0 IGN (more content not included)... [facility] C Urineon 09-03-2021 C Urine <10,000 cfu/ml [facility] Comment on above: Performed By: #### [id number] ####[facility] (DEFAULT)[address] [place] [id number] Progress Note - Nurseon 08-14 Progress Note - Nurse PAT chart for 09-17-2021 surgery reviewed per anesthesiologistDr Mccauley- no additional orders received. [Electronically Signed on: 09/02/2021 13:45 EDT] Rita Molina RN [Verified on: 09/02/2021 13:45 EDT] Rita Molina RN [facility] Provider Orderson 09-02-2021 Provider Orders [id number] #1.00OTGTIFF [facility] .Auto Diff 1on 09-01-2021 Auto [place] % 9 % Normal 02-24 [facility] Comment on above: Performed By: #### 1 [id number], [id number], [id number] ####[facility] (DEFAULT)[address] [place] [address] 67779 Baso Abs# 0.0 x10 Normal 0.0-0.2 [facility] Comment on above: Performed By: #### 1 [id number], [id number], [id number] ####[facility] (DEFAULT)[address] [place] [address] Basophils/100 WBC (Bld) 0.6 % Normal 0.2-2.0 [facility] Comment on above: Performed By: #### 1 [id number], [id number], [id number] ####[facility] (DEFAULT)[address] [place] [address] 36490 Eos Abs# 0.0 x10 Normal 0.0-0.4 [facility] Comment on above: Performed By: #### 1 [id number], [id number], [id number] ####[facility] (DEFAULT)[address] [place] [address] 35878 Eosinophils/100 WBC (Bld) 0.7 % Low 0.9-4.0 [facility] Comment on above: Performed By: #### 1 [id number], [id number], [id number] ####[facility] (DEFAULT)[address] [place] [address] 58035 Lymph Abs# 2.2 x10 Normal 1.3-2.9 [facility] Comment on above: Performed By: #### 1 [id number], [id number], [id number] ####[facility] (DEFAULT)[address] [place] [address] 20296 Lymphocytes/100 WBC (Bld) 31 % Normal 14-48 [facility] Comment on above: Performed By: #### 1 [id number], [id number], [id number] ####[facility] (DEFAULT)[address] [place] [address] 90368 [place] Abs# 0.7 x10 Normal 0.0-0.8 [facility] Comment on above: Performed By: #### 1 [id number], [id number], [id number] ####[facility] (DEFAULT)[address] [place] [address] 29898 Neut Abs# 4.1 x10 Normal 1.5-9.2 [facility] Comment on above: Performed By: #### 1 [id number], [id number], [id number] ####[facility] (DEFAULT)[address] [address] 09407 Neutrophils/100 WBC (Bld) 58 % Normal 44-88 [facility] Comment on above: Performed By: #### 1 [id number], [id number], [id number] ####[facility] (DEFAULT)[address] [place] [address] 00847 [facility] Standardon 09-01-2021 eGFR Non AA >60 Invalid Interpretation Code [facility] Comment on above: Performed By: #### 1 [id number], [id number], [id number] ####[facility] (DEFAULT)[address] [address] 98358 eGFR AA >60 Invalid Interpretation Code [facility] Comment on above: Result Comment: Inker korina Kidney disease could be indicated at eGFRs of less than 60 ml/min/1.73m2. Kidney Failure is indicated at less than 15 ml/min/1.73m2 Performed By: #### 1 [id number], [id number], [id number] ####[facility] (DEFAULT)[address] [place] [address] 10621 Anion gap [Moles/Vol] 12.0 mmol/L Normal 5.0-19.0 [facility] Comment on above: Performed By: #### 1 [id number], [id number], [id number] ####[facility] (DEFAULT)[address] [place] [address] 75469 Calcium [Mass/Vol] 9.7 mg/dL Normal 8.9-10.3 [facility] Comment on above: Performed By: #### 1 [id number], [id number], 5335076 ####[facility] (DEFAULT)[address] [place] [address] 52419 Chloride [Moles/Vol] 102 mmol/L Normal 101-111 [facility] Comment on above: Performed By: #### 1 [id number], [id number], [id number] ####[facility] (DEFAULT)[address] [place] [address] 03151 CO2 [Moles/Vol] 29 mmol/L Normal 21-32 [facility] Comment on above: Performed By: #### 1 [id number], [id number], 6682692 ####[facility] (DEFAULT)[address] [place] [address] 64188 Creatinine [Mass/Vol] 0.94 mg/dL Normal 0.90-1.30 [facility] Comment on above: Performed By: #### 1 [id number], [id number], [id number] ####[facility] (DEFAULT)[address] [place] [address] 36151 Glucose [Mass/Vol] 109.0 mg/dL Normal 74.0-118.0 [facility] Comment on above: Performed By: #### 1 [id number], [id number], [id number] ####[facility] (DEFAULT)[address] [place] [address] 90577 Osmolality 281 mOsm/L Invalid Interpretation Code [facility] Comment on above: Performed By: #### 1 [id number], [id number], [id number] ####[facility] (DEFAULT)[address] [place] [address] 10250 Potassium [Moles/Vol] 4.1 mmol/L Normal 3.6-5.1 [facility] Comment on above: Performed By: #### 1 [id number], [id number], [id number] ####[facility] (DEFAULT)[address] [place] [address] 98834 Sodium [Moles/Vol] 139.0 mmol/L Normal 136.0-144.0 [facility] Comment on above: Performed By: #### 1 [id number], [id number], 8265608 ####[facility] (DEFAULT)[address] [place] [address] 51659 Urea nitrogen [Mass/Vol] 21 mg/dL Normal 8-26 [facility] Comment on above: Performed By: #### 1 [id number], 07034587, 4845065 ####[facility] (DEFAULT)[address] [place] [address] 25145 Urea nitrogen/Creatinine [Mass ratio] 22.0 mg/mg High 4.6-16.2 [facility] Comment on above: Performed By: #### 1 [id number], [id number], 6237706 ####[facility] (DEFAULT)[address] [place] [address] 09689 CBC w/ Auto Diffon 2 Erythrocyte distribution width (RBC) [Ratio] 14.0 % Normal 11.5-15.0 [facility] Comment on above: Performed By: #### 1 [id number], [id number], 0593501 #### [facility] (DEFAULT) [address] [place] [address] Hematocrit (Bld) [Volume fraction] 45.0 % Normal 34.8-51.9 [facility] Comment on above: Performed By: #### 1 [id number], 04866318, 4274645 #### [facility] (DEFAULT) [address] [place] [address] Hemoglobin (Bld) [Mass/Vol] 14.5 g/dL Normal 11.8-17.7 [facility] Comment on above: Performed By: #### 1 [id number], 30456511, 5258315 #### [facility] (DEFAULT) [address] [place] [address] Instr WBC 7.0 x10 Invalid Interpretation Code [facility] Comment on above: Performed By: #### 1 [id number], [id number], [id number] #### [facility] (DEFAULT) [address] [place] [address] Man Diff? Auto Normal [facility] Comment on above: Performed By: #### 1 [id number], [id number], 0251831 #### [facility] (DEFAULT) [address] [place] [address] MCH (RBC) [Entitic mass] 30 pg Normal 24-34 [facility] Comment on above: Performed By: #### 1 [id number], 75984873, 0696491 #### [facility] (DEFAULT) [address] [place] [address] 46426 MCHC (RBC) [Mass/Vol] 32 g/dL Normal 26-37 [facility] Comment on above: Performed By: #### 1 [id number], [id number], 4460330 #### [facility] (DEFAULT) [address] [place] [address] 56907 MCV (RBC) [Entitic vol] 93 fL Normal 81-100 [facility] Comment on above: Performed By: #### 1 [id number], 33386046, 7402915 #### [facility] (DEFAULT) [address] [place] [address] Platelet 216 x10 Normal 138-427 [facility] Comment on above: Performed By: #### 1 [id number], 07745781, 6722141 #### [facility] (DEFAULT) [address] [place] [address] 67907 Platelet mean volume (Bld) [Entitic vol] 10.2 fL Normal 6.3-10.2 [facility] Comment on above: Performed By: #### 1 [id number], [id number], 7045420 #### [facility] (DEFAULT) [address] [place] [address] 48410 RBC 4.86 x10 Normal 3.70-5.30 [facility] Comment on above: Performed By: #### 1 [id number], [id number], 9489639 #### [facility] (DEFAULT) [address] [place] [address] 91774 WBC 7.0 x10 Normal 3.5-10.5 [facility] Comment on above: Performed By: #### 1 [id number], [id number], 1763741 #### [facility] (DEFAULT) [address] [place] [address] 19831 XR Bone Length Studies [facility] 09-01-2021 XR Bone Length Studies [...] MD 09/04/21 4:45 pm Technologist: Elysia SIMONS [facility] Complete Blood Count with Au to Diffon 06-09-2021 Basophils (Bld) [#/Vol] 0.04 10*3/uL Normal 0.00-0.20 [facility] Comment on above: Performed By: #### C FRANCISCA, CBCAD #### [facility] [address] [place], [place] [id number] Basophils/100 WBC (Bld) 0.6 % Normal [facility] [employer] Comment on above: Performed By: #### C MP, CBCAD #### [facility] [address], [place] [id number] Eosinophils (Bld) [#/Vol] 0.11 10*3/uL Normal 0.02-0.50 [facility] [employer] Comment on above: Performed By: #### C MP, CBCAD #### [facility] [address], [place] [id number] Eosinophils/100 WBC (Bld) 1.7 % Normal [facility] [employer] Comment on above: Performed By: #### C MP, CBCAD #### [facility] [address], [place] [id number] Erythrocyte distribution width (RBC) [Ratio] 13.7 % Normal 11.0-15.0 [facility] [employer] Comment on above: Performed By: #### C FRANCISCA, CBCAD #### [facility] [address], [place] [id number] Hematocrit (Bld) [Volume fraction] 43.3 % Normal 38.5-50.0 [facility] Comment on above: Performed By: #### C FRANCISCA, CBCAD #### [facility] [address] [place], [place] [id number] Hemoglobin (Bld) [Mass/Vol] 14.1 g/dL Normal 13.0-17.1 [facility] [employer] Comment on above: Performed By: #### C FRANCISCA, CBCAD #### [facility] [address], [place] [id number] Lymphocytes (Bld) [#/Vol] 1.7 10*3/uL Normal 0.9-3.9 [facility] Comment on above: Performed By: #### C MP, CBCAD #### [facility] [address], [place] [id number] Lymphocytes/100 WBC (Bld) 26.3 % Normal [facility] Comment on above: Performed By: #### C MP, CBCAD #### [facility] [address] [place], [place] [id number] MCH (RBC) [Entitic mass] 29.1 pg Normal 27.0-33.0 [facility] Comment on above: Performed By: #### C MP, CBCAD #### [facility] [address] [place], [place] [id number] MCHC (RBC) [Mass/Vol] 32.6 g/dL Normal 32.0-36.0 [facility] Comment on above: Performed By: #### C MP, CBCAD #### [facility] [address], [place] [id number] MCV (RBC) [Entitic vol] 90 fL Normal 80-100 [facility] Comment on above: Performed By: #### C MP, CBCAD #### [facility] [address], [place] [id number] Monocytes (Bld) [#/Vol] 0.6 10*3/uL Normal 0.2-0.9 [facility] Comment on above: Performed By: #### C MP, CBCAD #### [facility] [address], [place] [id number] Monocytes/100 WBC (Bld) 9.6 % Normal [facility] Comment on above: Performed By: #### C MP, CBCAD #### [facility] [address], [place] [id number] Neutrophils (Bld) [#/Vol] 3.9 10*3/uL Normal 1.5-7.8 [facility] Comment on above: Performed By: #### C MP, CBCAD #### [facility] [address], [place] [id number] Neutrophils/100 WBC (Bld) 61.5 % Normal [facility] Comment on above: Performed By: #### C MP, CBCAD #### [facility] [address], [place] [id number] Platelet mean volume (Bld) [Entitic vol] 11.30 fL Normal 7.50-12.50 [facility] Comment on above: Performed By: #### C MP, CBCAD #### [facility] [address], [place] [id number] Platelets (Bld) [#/Vol] 222 10*3/uL Normal 140-400 [facility] Comment on above: Performed By: #### C MP, CBCAD #### [facility] [address], [place] [id number] RBC (Bld) [#/Vol] 4.84 10*6/uL Normal 4.20-5.80 [facility] [employer] Comment on above: Performed By: #### C MP, CBCAD #### [facility] [address], [place] [id number] RDW-SD 44.9 fL Normal 37.0-50.0 [facility] Comment on above: Performed By: #### C MP, CBCAD #### [facility] [address], [place] [id number] WBC (Bld) [#/Vol] 6.4 10*3/uL Normal 3.8-11.0 [facility] [employer] Comment on above: Performed By: #### C MP, CBCAD #### [facility] [address], [place] [id number] Comprehensive Metabolic Pane [facility] 06-09-2021 Albumin [Mass/Vol] 4.6 g/dL Normal 3.6-5.1 [facility] [employer] Comment on above: Performed By: #### C MP, CBCAD #### [facility] [address], [place] [id number] Albumin/Globulin [Mass ratio] 2.2 {ratio} Normal 1.0-2.5 [facility] [employer] Comment on above: Performed By: #### C MP, CBCAD #### [facility] [address], [place] [id number] ALP [Catalytic activity/Vol] 80 U/L Normal 40-129 [facility] Comment on above: Performed By: #### C MP, CBCAD #### [facility] [address], [place] [id number] ALT [Catalytic activity/Vol] 16 U/L Normal 9-46 [facility] Comment on above: Result Comment: 01/13 Female reference range changed. Performed By: #### C MP, CBCAD #### [facility] [address], [place] [id number] Anion gap [Moles/Vol] 17 mmol/L Normal 12-20 [facility] Comment on above: Result Comment: Effe ctive 02/18/2019 reference range changed. Performed By: #### C MP, CBCAD #### [facility] [address], [place] [id number] AST [Catalytic activity/Vol] 22 U/L Normal 10-40 [facility] Comment on above: Performed By: #### C MP, CBCAD #### [facility] [address], [place] [id number] Bilirubin [Mass/Vol] 0.40 mg/dL Normal 0.30-1.20 [facility] Comment on above: Performed By: #### C MP, CBCAD #### [facility] [address], [place] [id number] BUN/CREA 20 Ratio Normal 6-22 [facility] Comment on above: Performed By: #### C MP, CBCAD #### [facility] [address], [place] [id number] Calcium [Mass/Vol] 9.4 mg/dL Normal 8.6-10.2 [facility] Comment on above: Performed By: #### C MP, CBCAD #### [facility] [address], [place] [id number] Chloride [Moles/Vol] 101 mmol/L Normal 98-107 [facility] Comment on above: Performed By: #### C MP, CBCAD #### [facility] [address], [place] [id number] CO2 [Moles/Vol] 26 mmol/L Normal 20-31 [facility] Comment on above: Performed By: #### C MP, CBCAD #### [facility] [address], [place] [id number] Creatinine [Mass/Vol] 0.7 mg/dL Normal 0.7-1.4 [facility] Comment on above: Performed By: #### C MP, CBCAD #### [facility] [address], [place] [id number] eGFRAA 132 mL/min/1.73m2 Normal >[address] [facility] Comment on above: Performed By: #### C MP, CBCAD #### [facility] [address], [place] [id number] eGFRNAA 109 mL/min/1.73m2 Normal >[address] [facility] Comment on above: Performed By: #### C MP, CBCAD #### [facility] [address] [place], [place] [id number] Globulin (S) [Mass/Vol] 2.1 g/dL Normal 1.9-3.7 [facility] [employer] Comment on above: Performed By: #### C MP, CBCAD #### [facility] [address] [place], [place] [id number] Glucose [Mass/Vol] 98 mg/dL Normal 65-99 [facility] [employer] Comment on above: Result Comment: For FASTING Glucose --- ADA reference ranges: Normal 65-99 mg/dl Prediabetes 100-125 Diabetes >/= 126 Performed By: #### C MP, CBCAD #### [facility] [address] [place], [place] [id number] Potassium [Moles/Vol] 3.9 mmol/L Normal 3.5-5.5 [facility] [employer] Comment on above: Performed By: #### C MP, CBCAD #### [facility] [address], [place] [id number] Protein [Mass/Vol] 6.7 g/dL Normal 6.1-8.1 [facility] [employer] Comment on above: Performed By: #### C MP, CBCAD #### [facility] [address], [place] [id number] Sodium [Moles/Vol] 139 mmol/L Normal 135-146 [facility] Comment on above: Performed By: #### C FRANCISCA CBCAD #### [facility] [address], [place] [id number] Urea nitrogen [Mass/Vol] 14 mg/dL Normal 7-25 [facility] Comment on above: Performed By: #### C FRANCISCA CBCAD #### [facility] [address], [place] [id number] Hemoglobin A1Con 06-09-2021 EAG 136.98 Normal [facility] Comment on above: Performed By: #### A 1C #### [facility] [address], [place] [id number] HbA1c (Bld) [Mass fraction] 6.4 % High 4.0-6.0 [facility] Comment on above: Performed By: #### A 1C #### [facility] [address], [place] [id number] Q - B-TYPE NATRIURETIC (BNP) on 06-09-2021 Natriuretic peptide B (Bld) [Mass/Vol] 33 pg/mL Normal <100 [facility] Comment on above: Order Comment: [facility] performed at: [employer] [employer] [facility], [address] [place] [address], [address] [place] [address], [id number], Coil Connector Repairer: Curtis Lyons MD [facility] Collection Date/Time: [id number] [facility] Results Received Date/Time: [facility] Reported Date/Time: FASTING: NO Result Comment: BNP levels increase with age in the general population with the highest values seen in individuals greater than 75 years of age. Reference: J. Am. Cheryl. Cardiol. 2002; 40:976-982. Performed By: #### 3 [id number] #### [facility] [address] [place] [address] Coding Summaryon 03-16-2021 Coding Summary [employer]Base 64 KszqxxbhDOs3hFb+PGhl YWQ+JR9HFBGxR07auPSb oE5QY3qECX3OCBRVWEMI GJ8TKM5ybEF5CNpeN9Qb biAv IrxsxTRpUN00XZc1JEC2 uKggHBcwmH1qoTTpS6w0 BjRkZB73yQ98SVfpIMYo OkT4CfRbgmtkyPUn V9qyGdOgwICfRqo+PHRh YmxlIHdpZHRoPScxMDAl YrYsjGbiAX0hCr9dKAQb LWNvbGxhcHNlOiBj d8hiSDYvLEolTC4xtVbq W0LzuDH5JBFyu1x1Ho20 dHI+FGEnARL3lRunCTcl c324ToIdv0gjULK6 oUTmMHsaQWA5G02mw2E9 MJKqULJfIGB1pJS6zM3z lVojwoysM9UsiDVlCuO1 KVY4fAQsiH5upMhv tkkgzG6wPix+E33ENH4F SSDAEX9CRfd6D6GxVrei dHI+EA08JZOlUG11jNSi cBVil1kxeJb5CiIp JESbOZW7gLkbRJhsj1Fl WPAbO75crZAsw1X8HAJj aQujfPJyIwBxnVR0pI9z GVjbwqypv8qwzzmw Yogvu2tbxn54hX69F60u WPbdQKSwPVS2HXBrYYZv pShuzy3izR6oGo5+IDxj f7aqh9bcxCy9ClNo AHXwinFfqFqaCFL5s4Vh Gp07H7VzrOydr3KaZki2 zl60yCNps4Z0eEO8WQct SCNqyV8kZUpkUvA3 AJQgWrSkkO09wNSkLEwu Bl8loJukeHavLL3oEHMk tfvkIPHsvZ7pMJMlwBZw dMeiEX7uMDRrzhuj l026GaVnYOG6VJNjxXAz O5JjtQ4sEhCwXXPkPCJt T5DirOMnFFwdK411PBak JkN8MDDwpiZyQ8Yc QWSdsSlyOtN8t5U9Ek0C e5EgyhlsSUA3VAmiVSGr WuHaJgGfRtZ3E6FvCgw2 DKQowRqaDC1kH1Xs JMQfmycjtzjfgMH7ENFy TPToqM34xBJnWTxxBd2o q4D3z427ABElXSTbvZ18 Mx3piDtaDZDueIEA cX0wvpdfn3wbdagmXoSb OHKqAEs3WQg5RTXzaMac JhWbDVU2KyA9OMR7bJAn dZ2jkUlrvjfshR6d Oyc+L36baN5iYJD4UVU2 rlbwNPDxrcKrDX17SW67 P7YvHenhrKBqpFQ+PGRp iyWkhMtqJF4fNqQl z9yje9FdFPldL1DnIQSi DWjwCtu4NZSdHHL0fHE8 xX2cXFPtUTklz0Z1rVG9 C2EikwOgyu0av9oo GPCzLPhyK09ofWIrk0I4 KUMcdMS1NNEekNzrZtKn wW37Zik+ZIWjbQkoj0Fd Psyyd5ejk0qrjFj8 IjMwJSIgdmFsaWduPSJ0 e1XkOw99P64mKUewKJQe QKZiOLYhGWMwfEexhi7k oS9fMm9+PGNvbCB3 tIZ6yM5cQETrWcX4ISfi R927EeZkxYWjPhmjo6fv e3wctVp4OjQkDXDyboMr lYvmACP1h9YmCa79 U79kNMawILRlJLPqYCEr NXYnaXbxqv1niO3tPg2+ FB7bn7exyo55eH63rXS+ BDNyYRM6tLjbMJvy RHDijP1yJSqiWxA3FSWe XlToqA22cGChSPxwQp6i vHpqyQaaUV6zPWPiehwo k190WvYmi9wbTNPw xIGoGCgcLVW6K99re2F8 HADjHFNwBLO1fZR8wL7m bGlnbjogbGVmdDsgdmVy lYurRZieIAcgD559 IHRvcDsnPlBhdGllbnQg AfCzETm7C4WtCoc2VEUf lRuqOC6ptVOtGDbwZk4s xXgefWyfXG3jPCZz djtxl103VrTya8yqBHWo jHOlILcxKPR0X91ut6X0 RWNyPGDkVKB0tJM0bA4u bGlnbjogbGVmdDsg jcEgqZddWOixUTrxD326 IHRvcDsnPkJpcnRoIERh lMW9SY64CR77vIBda9R5 gRZ9X8OhZXZkxyla tydreEU2CNWuQQCniP58 Ar8seAxwOj6eVIXaHCX8 ZGFjsGUeL4AwdG3uIpKn TQBkFNVgN3NirPOp JAkmE296XVbwEpD6EROf ivIbP1NiFUKdiXkxCeY5 t6S7Jm0TL2G9EH36GP25 sNGgp6H6vFN9O6Vj OJEiqrcdepsxzAI5ZQEx WMVtbY67Qt4qqLxoYp5y LUAjZDW7TXHdhVXfE0Hw kN6sGmBhFGPjCCPx D5PsoZHkUGfzT734PYyi LhE1REEnapZkR7OfNMSp yEkbTuF9m1K8Co8CVLh7 HD06WK41zJEsd5Q3 pFY1U6EaUGLxwgupynxc fQQ3TXUvYGHmoU42Ok1z gXrkSp5lHYGtUWZ5STEw sACqD4QlzF8nQbCo YDYqLWUbX3IztTXbGNcn M016XHkpWlI7ZEWagwDw U0ZhYADozDpjXaB4v8Z5 Bo9SRTQbCL08BNH5 gHA9ZB67QN83O2KlFfhh dGFibGU+PHRhYmxlIHdp ZHRoPScxMDAlJyBzdHls ZV6oIu6pYEKsRXXj mQyelACbJgAbc2pbDAJh MBovBJ5xmAlnN1FbxES9 QSPvc3k3Sf33N36pH3Ag dXA+FLMcdHP6cDS8 aD2zLoPtEmL9MWzfD465 BdAogYHaNpofg2gdp9es rKr9ApN0XXVqweFlkMpm KLJ1b6UhRx71C92f IHdpZHRoPSIxNSUiIHZh fVrrau8khZ2zBs7+PGNv bSA9gRS2hR7zGfLhIpW8 MIbzB511UkDdcAZu Rlyjp0uxk7lnaPw5GkBv AMZnxwLslXbsIPF8o1Og Mg86Y9PvoWsat4MhDwz8 ew35uRGes2N7kSI0 D7QdNWAjpzofzCSzaPld EH5qBVRbaqbvANJigT1b JSJrJ0y7MmDfDbN3QPuh U5TlziV9OKEciXEp GTgxQJD9W29my1P7XHYk SLIhQZB3zFN6vJ6jlMir bjogbGVmdDsgdmVydGlj QDhdTQcpW665IEVd hZiySGRqnC0nEFKirFMa sJakDM7qHNTyebzeCbzG QkVSTElORywgTEFXUkVO P2RoSEdajEI+PHRk UPT4qFcfSOoyJFGzsR5h WQIoJ7d3HpFfOqF0WIoe G2QsERAvsdqmVd23oI2v EzWbXyS7QSlpS6Of gvU6DGUqsVJpBPetRJY5 X21vb2Y1KAHiUPViYOB4 qPD5xQ4xaYwtdpmseYAe dDsgdmVydGljYWwt GZklS084DAKbzMioJcC1 TrYvIcD0NAx9X1KiQfh6 VHNcmJwmND4hwGDyYXve Oe6goTsvtWpfWX3e GFTihqgdHEKimZ4jAUVc iMWcxAujKD0mNFZeibfo d340JjYjYHP5HXJecNUy B0FbcD7nSpDvBHLu UPFoS2NzmTZzOBwgM923 ETexVbA7MUWkkcRiP6Zp DRYosTcdMhM4l3U1By26 MiBZZWFyczwvdGQ+ WRIpAWA6kDnwQZieDPOw sG3dBJNnO1q1GoEyNhY5 YCopE5RxZZVwkdpiDy77 zA9vWnVsZkN7WHtm U3CbqlT8NYJdbYAmVIpx EPO3J38oq9K7KKGlSMTn PCO1wNX2eV8hbXwltghw bGVmdDsgdmVydGlj OQuqODvcM583NXPuhKwn Ll4WFIF9J4EiBka9QCMv wNejLN0baNQhPRjuBl2m dLudbFkcRS2wPJQe agoeAOPxaN5jNDVidMWh jRtiAT6xSKIqvrxkz331 NfOrLXU4CHYzfFAxH0Wa nR4fBkEeSTVtNBQl U6LjiUBeLEccX941TLdi QgP8MGXtzyBeM3ZaLEGz mAgkHoU4t3M9Rx7PVBns dGQ+KT19zg25Z7Bb AkhmFqh3NUXaLHP9oHC0 cG5bKJWyBVdpf8P0aNV8 Z9NyzrAqcz1lf7rtLDAu NTztT14miOAmf4O7 OKExzKP9KLLnyPuvRaTw cQ05Pto+FPRsgRwfd9Ob Thwnz8twu1oudVi2FaEz JSIgdmFsaWduPSJ0 x0ZbJb74D36pENuvNCGe WJVyGXSkTZHwzUmtcs5x jE7gVl2+ZMHfdAA2sGH5 qG7bSdPzMcF4KVsw P293MzIfqGKdHcrae4kr n2astGs4BjCgMRFlroUv nHemFOC3m2TxLe47U7Ph aCsgg0ZuVqd2vd75 xNQbw6H7sDM4N9CuQYPw gizuqCNauOrqNR5hLGOx cmqtXMAaoF6sPPThG6b2 DnJoLtF9OXrlS0Ta rsQ9XENnpYDaJKSjjAJM aU2fqbcdl9udjadtDyAw MAZnBCa0TMq5USUnlKct MfPwPAT3UfT2HHE5 yLZfiW7lxRhwndkrdT6s Oyc+DKk0g3jmiAPmYZ1b kHS1NH71JC85nCGup8A8 sJI0V6XjOZLhfgph sbxgzAY9NVGmUIVzsJ65 Bc4mlNazQo1lIPQcQAU0 YLCxvOYoQ0MfsO2zGeJc LIAuCGZjA3TxbBWf LKorM461ULleTcE5TIGn wfRgF7MmOJWajPorXsJ0 e2X6Gc2DBW77IS33NI16 aMLqk0T9qMB7C1Cf XDLnudqnitdfiUD4APHv MIMmfG88Tn2azDxtTj5w YSNrSDM2XYUulTYbO3Fw nW8eHfOzJTSaIAIo B4LslVUlUZjxA983IYov FmZ7PDZfikGjP4EoFDXt yKqkDqE8v3N2Wa7IEr99 OX83ER09eXBoj0C8 rCB2U4IzMLTfmdtffmis aAL8TGGgJIMmfN42Zf9x jWrmRn9uSFYnFCR0YOQv yXWuP1GjsS4fVaPb GIXfDPRgP7FdhKNoBMwi L237CHdhGzT2LJCpipJl F3ZtRRZloQrzQuY8s5T0 Sz0JYPrmiam8K4Du PjwvdHI+AE02CKJgEP00 qSQnqSBmu4gakKl9BdXn QLVdCGR3rDyxRBurh9Cq LUZqE61psOTlf5R6 IGN (more content not included)... [facility] Consent Formson 03-12-2021 Consent Forms [id number] [id number] [facility] Coding Summaryon 03-09-2021 Coding Summary HTMLBase 64 UniinaqlVNw5pNa+PGhl YWQ+UB4PWFBgG95wsYYm cJ6NS8lFGB5TZSEHPFKS EY3SNA9agWV9EPidA6Rm biAv MpdrwTAoIU79SXv9RNL6 dCcwMVnpnY6seXQrW7s0 DuOtOF01kT58QQsiPAJk KnX5DsLabcbujUZn J1vrWnNsuQFmYqm+PHRh YmxlIHdpZHRoPScxMDAl ZtNuoBedGA5oGf4lVQPl LWNvbGxhcHNlOiBj x6cnXNYlBQctYQ1guWys E4QxpQD1LNFhj8a8Nl15 dHI+KXPgEKI1vCakCMiv a123XoIsb3upQEE9 sETfRCtsRZJ8R50fe4P4 IBJkHXLtNCR9qPD4nT3w oLklfjibS0SkkAYsQbA6 BIK3aEVjoR9zzVsz xiemvW0xPmo+C06XTZ2Y FQTKDN2XOzf3T1RrXqqs dHI+DK28LOBvOQ02uVIn oOLre3lwlXy9EdUr TDNgNBM0tKduFRgdd2Xx MBEgC82fkQBnv0J0CCAt aEkzjZZjYdTqqFO7jN8f ESebfvodn1nkdtir Xbugr6ewhc67qY66N16y NUjdZSGhMSR5JXRtOMRv cJhqph1lqN4yKo1+IDxj g6ozo0vtkLs8LtBx GVWqmgUyiOaxDDE9w6Jh Ys30S6UlaIbhd9LuGlw5 em17aGHea4V3jJT4QHfy EVIuyV5cGStwVeZ9 SWNxIcMypQ74zFDfMMfr Qu4hqHoxtOrhPS9eTVNf cpawWKVcwO8mLVQvhKEk lNttQF1uBLMfclya b012WfNuFAS5GBBmkYMz K6GdoB2sQrDqVAWxPPDh F6FobOSeROwiP768WBdm YiH5WBUzjtDhY2Qa MOLnzRghEoM4b8A4Za6A x9YuksfbHXF9HNsjUOAw GhF8MtOlGyQ6X2WtGyr5 USEqjWorQB3vT4Ny DBDgnivwwegeeZB8TTCr COCkiE42jHTqQQpcNk6f v1E6j337UEZaXOIupP12 Vr6qgPzeWHCclQGV kY8cyguwx7smxxpaWfMz VIDjNRy5IKp0IGAdcWie NwTeYLO7WeF6JFH6rUKg iF6ukRglnmdddA4z Oyc+A10scD8zRET9VZA4 znnjXXNqicLwED64PT33 K0QrFbcdmJRcpQG+PGRp buZefGpnIR4lRdFu z5qug0ArQPokR4TuHKPd ZFvoEkg1SGGsSCX6xPM0 fF8iQBVnXGste3L8qNO6 V9EcsfEntj8pl7qz XXQxGBwsO72xdNAjt0M9 WXQucZC6DYMxgLjaKaAh cO47Fao+AQCojPiho5Ql Eiidy2ggk8qmzWf1 IjMwJSIgdmFsaWduPSJ0 m9CdFk82O90iJCbpWMYc PCEzBIJgHJZwrGgdhz5a rH5lOh4+PGNvbCB3 zPR3gT9aJTQvIkF6PUop C153VxKmoHVhQideq3rv e4novGw8DzXiRYFyevYj lHfcKFP4s9WnOo24 L57oQRmpADEpWIIbUIVn VKZkgWbbrs0fjO9xOj2+ SH8lu4wzja50fV04uSI+ FKJeMWF8kWzrDWap RMZgtJ1mLTcfGsH3DTEq LpTifO55xXGiFCelKg0s dKhkgCzxNX4cIUQhvbnx j443MlDst8rvBCIr wZPrBSqiNWO6E25kd2X7 WXXhIXRkXPX8uGI2nP0p bGlnbjogbGVmdDsgdmVy cHbsKPqpLXptV863 IHRvcDsnPlBhdGllbnQg NxOcRNh2K9TtTyp3FXNb tHfzFX3quZBjAFagBe2c aDzmzLdcCD9yNJPd nedwm212PqEat1clZUNg oOTyFSebNDI5M20cz3G4 FHWxNEBgTDP9wQM0fZ6x bGlnbjogbGVmdDsg nlAfjOmbAHjzGMvrW289 IHRvcDsnPkJpcnRoIERh bSF3VM00EN79vSMhy5O6 zHB5M0NxJTRblklp loxpiAU8VSVtNZFuwY82 Nt1ghDagPr3aVHSnGKA3 TVLjmXCjJ7KufJ7mQqRt BQMrTCSqJ3KokQZi OXfiX815LXhrCsU0RGKk ikNeB7JuVHQqaNlhTkG9 p8M1Wx0AC3E7QU83OP51 xVSgn7Y4mOW5L7Un PMBufohfvcllbWV4JANk RYNcqQ79Of6moIknHm7x ONXiUXJ8XJCebNWuV0Rw dJ4sYiSjJRMlIHAv U8QasUOtDMzlE578RGwu VuB7MNDfclMcC3EeYLMf eIraHfK6s7N5Gk6TOZp0 SP28WK37oWMtp2U6 uMH4K5SdKOPyrphnadtz sQZ8ZGYgUURsfJ66Vv7o nYfaQf9hRMEwDQQ4TGBn bOIuG4ElxT3xFvDj OZFzRLKxL7YqvIDaOYvn K616SClwMpV7SHNjynOc S2ZxSZCcmVebHbO7d7R6 Rf2BMHYtAN12RLO1 pUX7ZI34TP12Y2QtBdek dGFibGU+PHRhYmxlIHdp ZHRoPScxMDAlJyBzdHls KO8yBa3gIVDtUGEq mGysrGYuHeJdj1doSTOm IDqgQP4moHedW3VddZT6 DGHpw6v9Kk03W65iH0Cc dXA+QAEqhGF1dZA7 vU3dQlMzZsT9JOpmH393 LhWraCFjPwahk6osn6ou sDn3TcI0WGNyjgPsdFbi FVP8s5GvOx12Z59c IHdpZHRoPSIxNSUiIHZh tMfwzy6liE0wCv5+PGNv pPY7jIK4nM7kVzZfHhF4 GQgmL103NiXybHXq Wutnl0keo8cljKn0UgVu TBMjuoJttYwvGMF2t2Gj Ee60L0KvcKuot0DaJnx0 ha15kUHaf3K8yKL0 H4IjUWGwwmbquKBaeUjs EX5dDFKniltxATUevH5i JWRjL6s7YlPrDeT7QLco Y1GqseE6FLGrmCPq GPybGDN1K53uk2O4DDUh HBBhSGC6lDC9sK6mpEbf bjogbGVmdDsgdmVydGlj HGqxVDuvF668KLQo mDbySEXhcW2yMLApcIJv jWdeJM1wKIEcpzckSoxU QkVSTElORywgTEFXUkVO Q6WnDEuhmVK+PHRk CJC0qTxtLAkpAXJvzE5b ZQKsF0j3HyPzTdR9FWag P0KgDLNvwbxwOv45oI3k KnDjZpU3SAbyF6Tp nuN8NGSzsUZlIAizXTX5 E16fb5L0FQXvXSTeYAP7 aKO5yT1ooRrbpspvhXTp dDsgdmVydGljYWwt JFruQ809LBBzkMwfZeZ4 ApKjFbB6JZo1N2WlQxe8 IKSlpQeyCW7mfPYkMNwo Ef6dcNaqwDgmJM2a YOWgybhcOKXavH0rAZNm sFHubZjbPO5yQWVqmwpv h465YrPcQGP6ELXvzBGp V8YpbC0pLwOwBPXr LNOsC5QlvALrAJhjU960 WSlrGvO8ZIHppuJsK5Ou KHIivVadWtC1z7P4Zr33 MiBZZWFyczwvdGQ+ VOUmNPY1nGeyARuhGEKt aS6mZLTtJ2n7AlPlMgO4 FYvjB5ZoITGvuaaqWi55 xY5aNoFjKcT6POcl X3IwoeL9NPNrbIMbHPsb GZD1Q02fb0L7YWWsCYZz CYH8tSQ6mN1xcNnegzyg bGVmdDsgdmVydGlj KZbsBDcoR679ALOokDsr Nn9GMFS4U2MrEpc4DEDc sRpbZH3auENzDNwqFt6r lKewkLorFE6uCCDm ktmeBZPbpV1iWGQcvCKl mNzcHW4jIXXkcbaub831 XeUvJEF6EDUwrQBsC2Oz zT5uBvOdVHOoEEWs B4RgcAHyMLdfX515MFyp WrN5OMKfdwEaJ2UpRBKv oDsjChD5u1S8Zx5LMgBs cnZhdGlvbjwvdGQ+ ZM41qr79E4YeLrmwNhn8 CRSjOYK8zAJ9wK1yRGOe GHpxp3T7yVY3V6SediYc mf1jd7rgDSKuGRht K60lrIQtm0L4ZGCipZZ6 UWJexYdpYrYbbW04Zce+ BHXgnLqno1YjZoiop7uj x0kwnQe2CtQpBNIm pjQezRrgLOR9m8UrIi95 C78dOVffOAZmRXUeJHWm WWYezSrfpf5upS8lDf1+ NHSesLV9kBV4lU1d MoPkScZ0BPiuX353ZgPn qRKyJpwiz6hnz2qoeIj8 IjIwJSIgdmFsaWduPSJ0 t5PgDu94F2NlaZag x8TyZlq3iw74mUNwv5Q4 tRN2F5OiZICtsctcfFRb aRveZD4vKCUuschdYAPe mD2aTLGuI3g2KbEs MsS9HVpoP9JwctS9VZGv pRClWJGjmGPGcO7ueywl h0adhrgjHcUzPIEjVWd6 MUo2IOHstBycStFj YSB8KqN9OPF4oLMhlC9z jHlilmijaP0tIxw+UGh5 n7iwxVHzEI3epNN6OM24 NE91yPHvp8Q3iZC6 S8JsDHKmfgtgeqtraSA7 KYAlKDZunZ54Cl1bdItb Oo9kVQDxNTP4TGPmiXGk P3VieK7lYzWmOOSq DAQlJ5YgbEIeMMtdY688 UZusUpK9SNWvtdLpH8Vz PVNrfMcmEiK5u0D3Xx3P BT93EG73XA39pVKc y6C7kZB9I3SnPNYhwajl zfuulFU9AFZzHFMbsI02 Mq9ztRhaBo2iNCJpLHA4 EIImtXSdD3UswM8y ViXkWWFjLVAbP6WecDKr KLmqN812EUlfDdG1ZNUh obPbF1VgVRVieEuhPmW7 v1V0Ic8XSv90CR95 RS31sYYud1Y9aOT7M6Dp EDBfxjylsujdwAF4TRYp SDOjhQ94Ly3kfRrpLd3l FGSzEKV7XXLdeMGi Z2SuoD5gLxWyYGRkLXDr C1IxjIGaZTfxR587RBsf OhA5VOFpmzEgM1MjBHIv wEifHiI8g7H9Dt3N ZRylsut2J0CjJuticWV+ BN93XRVvGD16mONjsDPm z0njrVs3XjDiZIPqXGG5 dXrcPGxwl2SqYMXe Y29 (more content not included)... [facility] Coding Summaryon 03-08-2021 Coding Summary HTMLBase 64 DujkrbmwVWu9kKr+PGhl YWQ+BR4CDNVcT12gcKRh aR0BC2rOOL2NETJWOBYK KU5ZTW6jvEB9RQsbT8Yi biAv PggynLZvDX40UFd7GEO8 oUqbIZogvL7gfKFrZ9b7 VfHtCY82iU96TBdnHQUb RxF6EkFbrlolcRGs B3ngVkYpmXCpLqz+PHRh YmxlIHdpZHRoPScxMDAl QnUpcPucDO8mSm0qIGJy LWNvbGxhcHNlOiBj p9cuVRFoYTgnZB5qbWge V8LjqUM6QXCol3j6Dg22 dHI+QJZlBBN8lSmhNFvp l077OdGlj6kwLLP2 eZAoJIplAMJ1F57js9J8 FSLoBJGuKGM9sYT3gB9b uAnzvmwlR0FmyZTdIsG8 OSA4pTWqtU0wuClx mhereY9bFbp+F52KMI3I PESAYW3LVfg0K8JhKcum dHI+SD76RJLkCF33yJQd aKKgt9hmdEf2OuDb CSBpQUQ3qTvuBBvgo8Va BUTrZ67lnSImm4Q2PPKn lEmvdEIkKlDgqLB8gS1h HRacprmbg7rytnnb Ogoin4cazo94mL91N95d OTieTVWdKHZ7OLApSCWz iVghtt9flV8tMj5+IDxj p3yaj2usgSu8ZmZa FCNffoZerBmmJKR4b9Th Gf88Z1QzzGess4LeEul7 zh20gTZsz8X0hIJ3AEcx FKPorP2tNTqoSaJ4 AIHwFoIenP84xJNyEWkd Uc2mdYxdaHakLQ6nCUXu mfbtVQWbbF8bBFRhkFLg eZiqDM1cGXFgorcg i719CsKaAFX1WJKbpGUt A4XurE7eVmWuSQYbLLDt Z2ZqfYLsZGipW173JVvo LaB7OYCtwtSwB3Xj TFHnnHgwXaV7z1N0Si8Z q9GlgvjqZHY5GGbdJFIn HqB4UoRuOqC0G0GfLer9 YZIwiBrgTS4xQ6Su ONPiltkxsqvikJB1FTCz CHClbT33wZHdNDuzQn1j d7V1h107ZSJzINGrjE28 Zp4gbEubIXEvdMQZ mO5buixkp0xubmalCkRi GBXwKKq7NSj3BXXxqTna WqWtVZZ9VjH8OPJ7eDEc nE0azMwblchgaJ4o Oyc+G13cjZ7pPSF3CAI7 cxznFBIwupFiDO13OI40 K6UmZvjvaKZjlAY+PGRp ijMzvPofTV0uCfIk d7szu3ZuYGdoZ6NgYIRz HGqlYib0DNEpDQS5rEZ9 xG4sVJWdLQfnl5X1hDN7 G5BygwUyww9fq4xd JQLkXFzvC14mhMUms5E3 DOVmkLV5WDYnsFizCfHg zG86Ngn+IMAypPujc6By Mlqhw7uaf4kfdZi4 IjMwJSIgdmFsaWduPSJ0 k3CbMo21O83nPPwoAMSv KUUaPJBdFQMowXazft7r uN8cNf1+PGNvbCB3 wPK8kP4gDCIsHcE8OTjo S949YeSbbUGdNfjmp5sq u0bmcQo5KmHaKSCzmgEi wDdnMQO8i8IzVf74 C89zLMgeCNZsOYRbAXZq ERUpuPpusr1nzZ3tRd7+ RD5gd8okxz35xA71kQD+ ESCnEWW1rSueAXcz ZXXksN3fCGmwKjF1EHUd DsHxuF94eKXyLSqcIj2q xPxqfMxhGK4rLUDhogdt e453PbPds4glEYQf uQRkYBxzAFP0X02va6K1 IBWtGMAoOKX7oAV4uQ8m bGlnbjogbGVmdDsgdmVy oJxcLMoxQTfeP253 IHRvcDsnPlBhdGllbnQg UpUwRTg5W3ZtCic6AIHf jJweJO4djWGrSAcdBu6v cUszwUgjCP4bILHv kqcjf311MjOwe1fbPUSo hVCbLAtxOOT0A10md3K5 HWVaBEPkZJL2iTX6cU8a bGlnbjogbGVmdDsg lnUdyJidIRiyBYheF760 IHRvcDsnPkJpcnRoIERh rUH9PZ50HI20bASvo8H2 jFL8Z5PfIMJlhrco fotmjOA4BFAcVUOemC85 Hb6asWnnDk6aMUIaOUN7 MYHqtBJgR7RfwT9eRxWy ZEDuBGYeU9TkeHNh RXkcX576OSakKwY6EDFm mlRuQ1DzGEHxeSywWpL0 y1Y8Vr7GK5U3AY01QD47 jPJlu7W5nKG6L6Cm XGEsjkqtucrcdEY1MARz XPDdiF44Km5njWevBf7y JJCeSIT8IUZelXCbW8Ib uM0lUnOpNPFpBJMo C4JyhQEyFZttN533FYzn IbO8OOQlkiDnM9PgLBAv yCinNxB3t6Y7Kz0UMXb4 IM56LF05yMEru0P0 vGQ0P3SdOXYikstfucym mEL2LLWxUFUqyY70Me0v qRwnEm6qEWWuAKN9JLXe yESaE6FeiH9vAwUo FFVhUGHeL8XxwRRwVJnl Y069EHxbUbU9ANClodMd W5HuYFMyeDusYoE7u0H4 Oh9QVCPkMM53RHF2 gQH9DO68OZ23N6QjZizi dGFibGU+PHRhYmxlIHdp ZHRoPScxMDAlJyBzdHls IY7rAr9xCFMfMYKm fCrpkXOuMtZgd4ooMCTs BLpmFE1npYduX3PbvWZ8 DUFer7d5Kx51H30yY2Nw dXA+IWCjeAU2tMK3 vN5vCrOuSnH7ROprU692 UkDszRCzQommg0svj1lq qBc2HbE1ENGqanTxwAeb ZFY8a1MmAz07Y39e IHdpZHRoPSIxNSUiIHZh bAykuq1lrC6gXr1+PGNv fSI1pVX3eI1tBiPeBoK9 WSvkZ366LjMtjSGp Osfoz3hou3hbkPv6ZuEj SCQhysWzpCmhXSI5d9Lg Xl46Y6XseXsda3LqWfu0 pt65sEZra5P6bSR1 B2CkUCQssxiigVKssLjl PQ9mTVZfqgfjASIvdM4r GTOyU6s2YbEqHeB8GZki M0YmblJ6SKCemWKy KAjqGNI8F09ul3K0EUTy RMFrTMX2lFP8dB5zpAju bjogbGVmdDsgdmVydGlj ADhuSRsyZ937JZZv kTajUVQdnU5yACGaoSPe bBzfGO6vGEUrwgxcXrbO QkVSTElORywgTEFXUkVO H2PjWDskfLF+PHRk JEL4zJtgLIdbTNGknM8j VKOtA0m4VkIrNiE4DJtk R3RpGHLnoblpZj68lS6z VeXvZhM3JGpdJ1Zt xqF0OVKysJEtIAguMDK4 M09py7M8LGLuSGJlVLK9 mTW2eE2cpDqcssnnlPRy dDsgdmVydGljYWwt CTzwQ262YTAovXvaKnL6 VkXzSrQ1YXa2T3VkIvv2 GKZehQkoII4eyTZwQFpf Gg1suKdyiSlvSS6w SSGndwaaNMYhgV0gZTGz aCEviVrdYZ2gJGSyuqam w393CkCcGNU2NZNitYFu T7PguK1sFiUaEKJb NFTwX1GjjFCtQCedH130 ZBwvErP7ZHWlidTtL0Ao QWZpbGjiZfK7t5X4Bs92 MiBZZWFyczwvdGQ+ ABEuSYA7fRzxWDflTCRw xE0mHAApN0i0HiAfQuR5 QSozE9TnQEPckkmwLr36 oY4kQpIaNaJ3VUvs W3RgzxE7VRScgDGkAKck QFX2D03bm2I6YQCyDBFa UFG8vIV7wC1cgNirrjkx bGVmdDsgdmVydGlj HNuaDNnbP956GTNsnVeg Eo7IORI7E4YtNnc3OOMi rDgrRY3twRDvXHjtIv0q oNwfbGdeSS6cBUKv bxblPASqyH2gOTWjuWXs zVhrYO9sCBZhyxgye107 FuGpYGM9TIRmzHAaL2Qw iQ1dXmWlUUAwAVEm S1JdoVGvQFddA641XKki WzO0IKIicaVrD6QnUIHq lJqiVoA6s5H6Kg5KDOuz dGQ+PB86ti51T5Zf IzhoWiy4KHQzKHK5fTK8 vM9uFXYnLDbty1B9lJN6 A0IqmgEczx0dk1ykGIWs LQjlW03ztSSwn8Y7 XNZjqJD1KYEcaKsrQnBc dX23Ufb+HSIuuSriv7Rw Uwbvj5sfo4cnqPx3YzYb JSIgdmFsaWduPSJ0 k7VxEe88D77aZSkfOKLb ORAhTOWmMYTbyOqush4r bU8jNs0+VFOimHM7uEY6 hE2oXeLqDzH2REsp M555YvRjnCQcHcxum5hf a7tlcWw6VqKvQXQzxcMf fWjjDXB7f1BuIz29N9Ft fUzaw8IqVho5qr79 qZKgd6S6hSK6H7NvAOXa fnpbhAIloIuyOP6hRYYa bhwvGFKlbB4yOJHaE7a2 OfLtIpZ9GOriW5Ui ajL1URNmrNNzMAToxOLQ hF6uhzztp0gtxsqoNlWh FTCzOMr6SNz7VLQvzLzd HlFePXF1XkC7HOI2 hEQanQ6izSmozwxpsY5j Oyc+EAy6k5xewVPzAU9e mBE0JM39ME67rMHuz6E6 bZY5J3MbAFDpgrol jvhgbMR9GTPrMCAswO87 Yb2hsChkZw2iOBGbEJU9 WWOtrNWlH2XssU0lOmAf IAJrODMhF4KhaWOs DBdwZ189HUddCpE5UXOv wsRwI1PpIGPjxYvpZwM3 y7V4Qa7LCQ73AP33KV21 eZMqq4O9hKL1Y1Yt IWJfpoaweyjmaFO2KKQd YUBblC82Gt0ruCheSl7w NFSiVKW0ZQDefODxF2Vr eP7fQaZaWSHfMLKx D9GexMYsHYuoL750SQgg EdB5OXFrxeTfN7GgCYAg gGyoMmC1o9K3Vk5VSg71 BH80SU25aPYjx6E5 aUK7B5FwABBgiunztybb eOH9OFCyRSChlO93Aj7o qHwrTr1yDLMfUHY4AUNy oRVkW4ClwX3nZuCa CCFyKBZiP5RjsBNxIPed E370FFmwZdM4ZXLcdsDr A5PtTMVsoSrwTdH6k6I6 Zr7ELLoloec7C4Fp PjwvdHI+LE79DRItOR64 qWOcpEPuu1luaQz5XuFv EAOlXVN8uHzsTRzut7Ov ATDvD89ohXDnn6Z2 IGN (more content not included)... [facility] Consent Formson 03-04-2021 Consent Forms [id number] #[email or web address] [facility] Electronic Messagingon 03-04 Electronic Messaging --- --- --- --- --- --- --- --- --- From: Ej ([email or web address])Ej To: ZAINA WINTERS Sent: 03/04/21 10:12:15 AM EST Subject: Discharge Summary Ready to View A summary regarding your recent visit is available in the Documents section of your Health Record. [facility] MAGR Intraoperative Record MAGR Intra-Op Record Summary Primary Physician: DAVID AWAD Finalized Date/Time: 03/04/21 08:14:12 Pt. Name: ZAINA WINTERS.O.B./Sex: 1950 MALE Med Rec #: [id number] Physician: DAVID AWAD Financial #: [id number] Pt. Type: O Room/Bed: [facility] Admit/Disch: 03/02/21 05:52:00 - 03/03/21 14:09:00 [...] Role Performed Surgeon - Primary Anesthesiologist of Magazine Designer Record Time In 03/02/21 08:00:00 03/02/21 08:00:00 03/02/21 08:00:00 Time Out 03/02/21 12:09:00 03/02/21 12:09:00 03/02/21 12:09:00 Procedure Arthroplasty Knee Arthroplasty Knee Arthroplasty Knee Total(Left) Total(Left) Total(Left) Last Modified By: Jo-Ann Schwab RN, Barbara RN Long, Barbara RN 03/02/21 12:19:51 03/02/21 12:19:51 03/02/21 12:19:51 Entry 4 Entry 5 Entry 6 Case Attendee Marjorie Esteves RECREATION SPECIALIST, Sue Horner RECREATION SPECIALIST Role Performed Scrub Personnel Dining Room Coordinator Dining Room Coordinator Time In 03/02/21 08:00:00 03/02/21 08:00:00 03/02/21 [...] By: Zaheer (more content not included)... Normal [facility] Outside Recordson 03-04-2021 Outside Records [id number] [facility]-2021 Provider Orders [id number] [facility] Tele[facility] Stripson 2 Telemetry Strips [id number] [address] [place] [address] .Auto Diff 1on 03-03-2021 Auto [place] % 10 % Normal -12 [facility] Comment on above: Performed By: #### 1 [id number], [id number], [id number], [id number], [id number], [id number] ####[facility] (DEFAULT)[address] [place] [address]3853 Baso Abs# 0.0 x10 Normal 0.0-0.2 [facility] Comment on above: Performed By: #### 1 [id number], [id number], [id number], [id number], [id number], [id number] ####[facility] (DEFAULT)[address] [place] [address] 47140 Basophils/100 WBC (Bld) 0.0 % Low 0.2-2.0 [facility] Comment on above: Performed By: #### 1 [id number], [id number], [id number], [id number], [id number], ####[facility] (DEFAULT)[address] [place] [address] 58334 Eos Abs# 0.0 x10 Normal 0.0-0.4 [facility] Comment on above: Performed By: #### 1 [id number], [id number], [id number], [id number], [id number], ####[facility] (DEFAULT)[address] [place] [address] 34830 Eosinophils/100 WBC (Bld) 0.0 % Low 0.9-4.0 [facility] Comment on above: Performed By: #### 1 [id number], [id number], [id number], [id number], [id number], ####[facility] (DEFAULT)[address] [place] [address] 64560 Lymph Abs# 1.9 x10 Normal 1.3-2.9 [facility] Comment on above: Performed By: #### 1 [id number], [id number], [id number], [id number], [id number], [id number] ####[facility] (DEFAULT)[address] [place] [address] 37503 Lymphocytes/100 WBC (Bld) 10 % Low 14-48 [facility] Comment on above: Performed By: #### 1 [id number], [id number], [id number], [id number], [id number], [id number] ####[facility] (DEFAULT)[address] [place] [place] [address]57 [place] Abs# 1.9 x10 High 0.0-0.8 [facility] Comment on above: Performed By: #### 1 [id number], [id number], [id number], [id number], 6890439, [id number] ####[facility] (DEFAULT)[address] [place] [address] 64635 Neut Abs# 16.2 x10 High 1.5-9.2 [facility] Comment on above: Performed By: #### 1 [id number], [id number], [id number], [id number], 5757004, [id number] ####[facility] (DEFAULT)[address] [place], [place] [address] Neutrophils/100 WBC (Bld) 81 % Normal 44-88 [facility] Comment on above: Performed By: #### 1 [id number], [id number], [id number], [id number], 5246504, [id number] ####[facility] (DEFAULT)[address] [place] [address] CBC w/ Auto Diffon 2 Erythrocyte distribution width (RBC) [Ratio] 13.5 % Normal 11.5-15.0 [facility] Comment on above: Performed By: #### 1 [id number], [id number], [id number], [id number], 9055628, [id number] ####[facility] (DEFAULT)[address] [place] [address] Hematocrit (Bld) [Volume fraction] 40.5 % Normal 34.8-51.9 [facility] Comment on above: Performed By: #### 1 [id number], 81091865, 2417284462, 6358330581, 6764632, 7235558254 ####[facility] (DEFAULT)[address] [place] [address] Hemoglobin (Bld) [Mass/Vol] 12.8 g/dL Normal 11.8-17.7 [facility] Comment on above: Performed By: #### 1 [id number], 81766496, 1248157022, 2868650396, 3684929, 4696824129 ####[facility] (DEFAULT)[address] [place] [address] Instr WBC 20.1 x10 Invalid Interpretation Code [facility] Comment on above: Performed By: #### 1 [id number], 81594799, 1341598251, 2134594465, 3349262, 3226844174 ####[facility] (DEFAULT)[address] [place] [address] Man Diff? Auto Normal [facility] Comment on above: Performed By: #### 1 [id number], 49601264, 3600892912, 4713964429, 3599407, 8187981895 ####[facility] (DEFAULT)[address] [place] [place] [address] MCH (RBC) [Entitic mass] 30 pg Normal 24-34 [facility] Comment on above: Performed By: #### 1 [id number], 73726831, 5553054530, 7702279008, 3536110, 7462749999 ####[facility] (DEFAULT)[address] [place] [place] [address]63 MCHC (RBC) [Mass/Vol] 32 g/dL Normal 26-37 [facility] Comment on above: Performed By: #### 1 [id number], 07799525, 5371288561, 5611934150, 1781960, 6794680190 ####[facility] (DEFAULT)[address] [place] [place] [address] MCV (RBC) [Entitic vol] 96 fL Normal 81-100 [facility] Comment on above: Performed By: #### 1 [id number], 41099336, 8374226340, 3091326959, 5772399, 2968072496 ####[facility] (DEFAULT)[address] [place] [place] [address] Platelet 275 x10 Normal 138-427 [facility] Comment on above: Performed By: #### 1 [id number], 46503451, 1533431674, 1319683338, 5247420, 4743261765 ####[facility] (DEFAULT)[address] [place] [place] [address] Platelet mean volume (Bld) [Entitic vol] 10.3 fL High 6.3-10.2 [facility] Comment on above: Performed By: #### 1 [id number], 37621721, 4817408853, 7771299710, 7169103, 3050421794 ####[facility] (DEFAULT)[address] [place] [address] [place] [address] RBC 4.24 x10 Normal 3.70-5.30 [facility] Comment on above: Performed By: #### 1 [id number], 68565945, 1161237689, 1073481462, 0566527, 7117532119 ####[facility] (DEFAULT)[address] [place] [address] WBC 20.1 x10 High 3.5-10.5 [facility] Comment on above: Result Comment: Slid e Reviewed Performed By: #### 1 [id number], 83873243, 6994705753, 6966255823, 6036073, 1155909483 ####[facility] (DEFAULT)[address] [place] [address] Electrolyte Panel Standardon 03-03-2021 Anion gap [Moles/Vol] 17.0 mmol/L Normal 5.0-19.0 [facility] Comment on above: Performed By: #### 1 [id number], 49559426, 9616442904, 7469410240, 1062882, 8356554078 ####[facility] (DEFAULT)[address] [place] [address] Chloride [Moles/Vol] 97 mmol/L Low 101-111 [facility] Comment on above: Performed By: #### 1 [id number], 55301419, 5633513376, 7405272175, 6711050, 5202048996 ####[facility] (DEFAULT)[address] [place] [address] CO2 [Moles/Vol] 26 mmol/L Normal 21-32 [facility] Comment on above: Performed By: #### 1 738904263, 50067597, 5420445277, 4951213249, 0803085, 9841533556 ####[facility] (DEFAULT)[address] [place] [place] [address]408 Potassium [Moles/Vol] 3.9 mmol/L Normal 3.6-5.1 [facility] Comment on above: Performed By: #### 1 400804099, 68386972, 1622178429, 4896057378, 6077861, 2462331456 ####[facility] (DEFAULT)[address] [place] [address] Sodium [Moles/Vol] 136.0 mmol/L Normal 136.0-144.0 [facility] Comment on above: Performed By: #### 1 000017361, 91124607, 6629416053, 1097245293, 2875556, 4942618201 ####[facility] (DEFAULT)[address] [place] [place] [address] 11402 Extra Greenon 03-03-2021 Tube Collected Yes Invalid Interpretation Code [facility] Comment on above: Performed By: #### 1 [id number], 93602237, 5819648964, 3530890479, 5693934, 4199758659 ####[facility] (DEFAULT)[address] [place] [place] [address] Inpatient Patient Summaryon 03-03-2021 Inpatient Patient Summary [address] [address] Patient Discharge Instructions Name: ZAINA WINTERS : 1950 Patient Address: [address] [place] [address] Primary Care Provider: Name: Jeannine Hurley After you are discharged if you find you have any questions, please, call [phone] ext [phone] to speak to a nurse. Discharge Diagnosis: [...] alcohol and/or drug addiction problems; contact the [facility] 05/09 Crisis Hotline -Text 4HFHD rf 965823. If you received any narcotics, sedation, or [...] business decisions or sign any legal documents [facility] would like to thank you for allowing us to assist you with your healthcare needs. The following includes patient education materials and information regarding your injury/illness. ZAINA WINTERS has been given the following list of follow-up instructions, prescriptions, and patient education materials: Follow-up Instructions With: Address: When: Trenton Redd [address] [place] [address], [facility] [address] [address] Business (1) 03/15/2021 10:30 AM With: Address: When: Jeannine Evangelista [address] [place] [address] Business (1) Medications During the course of [...] 0.5 mg oral (more content not included)... [facility]-2021 MAGR Postoperative Record MAGR Phase II Record Summary Primary Physician: DAVID AWAD Finalized Date/Time: 03/03/21 08:37:51 Pt. Name: ZAINA WINTERS /Sex: 1950 MALE Med Rec #: [id number] Physician: DAVID AWAD Financial #: [id number] Pt. Type: O Room/Bed: 231/1 Admit/Disch: 03/02/21 [...] By: Vianca Celaya RN 03/03/21 08:37 Normal [facility] Nutrition Noteon 03-03-2021 Nutrition Note Pt admitted for scheduled Lt total knee surgery. Diet advanced to 3000kcal DM, along w/ usual post op vitamins/minerals and oral nutritional supplements; adjusted by tech writer to 2000kcal to better meet nutritional needs without overcompensating. Labs reviewed, BS 138-177mg/dl ideal post op. Pt at high nutrition risk r/t age greater than 65y, however, no immediate nutrition concerns at this time. Will monitor for changes. Normal [facility] Anesthesia Noteon 03-02-2021 Anesthesia Note Patient: [...] on: 03/02/2021 12:40 EST] Dre Santos DO [facility] Anesthesia Note Patient: ZAINA WINTERS Age: [...] = 20 mL, 100 mL/hr, IV Piggyback, Character Artist tranexamic acid: 1,000 mg = 100 mL, 300 mL/hr, IV Piggyback, Character Artist tranexamic acid: 1,000 mg = 100 mL, 300 mL/hr, IV Piggyback, Character Artist Documented Medications Documented Eliquis 5 mg oral [...] All Problems Atrial fibrillation / SNOMED CT 05932817 / Confirmed COVID-19 / SNOMED CT 3971974228 / Confirmed Diabetes / SNOMED CT 276849891 / Confirmed FH: hypertension / SNOMED CT 549296743 / Confirmed 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 Comments: 02/04/2021 10:08 Oliva Van RN surgery [...] review ECG interpretation: Normal sinus rhythm. Plan [place] [employer]#(A SA) physical status classification: [...] EST] Aiden Santos (more content not included)... [facility] MAGR Intraoperative Recordon 03-02-2021 MAGR Intraoperative Record MAGR Intra-Op Record Summary Primary Physician: Finalized Date/Time: 03/02/21 08:23:07 Pt. Name: ZAINA WINTERS Carmen /Sex: 1950 MALE Med Rec #: [id number] Physician: DAVID AWAD Financial #: [id number] Pt. Type: D Room/Bed: / Admit/Disch: 03/02/21 [...] Draper, Lora RN Role Performed Anesthesiologist of Magazine Designer Magazine Designer Record Time In 03/02/21 07:33:00 03/02/21 07:33:00 [...] Canal Block Primary Procedure Yes Primary Surgeon Yontz, Christopher J DO Modifiers Left Surgeon Comment ADDUCTOR CANAL [...] Airway Device Na (more content not included)... [facility] MAGR PACU Record MAGR PACU Record Summary Primary Physician: DAVID AWAD Finalized Date/Time: 03/02/21 13:11:26 Pt. Name: SINGHZAINAO.B./Sex: 1950 MALE Med Rec #: [id number] Physician: DAVID AWAD Financial #: [id number] Pt. Type: D Room/Bed: [facility] Admit/Disch: 03/02/21 05:52:00 - Institution: PACU Case Times MAGR Entry 1 In PACU I 03/02/21 12:07:00 Discharge from PACU 03/02/21 12:58:00 I Last Modified By: Rosy Gaxiola RN 03/02/21 12:58:08 General Comments: Pt stable. VS stable. Pain level 8/10. Report given to LESLEY Velásquez at bedside. Finalized By: Rosy Gaxiola RN Document Signatures Signed By: Rosy Gaxiola RN 03/02/21 13:11 [facility] 0 03-02-2021 MAGR Preoperative Record MAGR Pre-Op Record Summary Primary Physician: MARIA GUADALUPE DAVID Finalized Date/Time: 03/02/21 08:24:03 Pt. Name: ZAINA WINTERS /Sex: 1950 MALE Med Rec #: [id number] Physician: DAVID AWAD Financial #: [id number] Pt. Type: D Room/Bed: / Admit/Disch: 03/02/21 [...] By: Rita Molina RN 03/02/21 08:24 Normal [facility] POCT Glucose Levelon 022 Glucose [Mass/Vol] 177 mg/dL High 74-118 [facility] Comment on above: Performed By: #### 4 [id number] #### [facility] (DEFAULT) [address] [place] [address] 80208 Glucose [Mass/Vol] 138 mg/dL High 74-118 [facility] Comment on above: Performed By: #### 4 [id number] ####[facility] (DEFAULT)[address] [place] [address] Patient Handouton 03-02-2021 Patient Handout POST OPERATIVE [...] #8 follow up in office with physician customer relations assistant Justo Redd as scheduled #9 NOMS [...] the nearest hospital's emergency services department. Normal [facility] XR Knee One or Two Views Lef [...] MD 03/02/21 1:56 pm Technologist: Evelia ESCOBAR [facility] 2018 Novel Coronavirus (CoVI D-19), JULISSA LCon 03-01-2021 SARS-CoV-2 (COVID-19) RNA JULISSA+probe Ql (Unsp spec) Not detected Invalid Interpretation Code Not Detected [facility] Comment on above: Order Comment: [id number] Result Comment: This nucleic acid amplification test was developed and its performance characteristics determined by [employer]. Nucleic acid amplification tests include RT- PCR [...] detected) result in this assay. Performed At: [address] [id number] Zay Landa PhD Ph:[phone] Performed By: #### 1 [id number], [id number], [id number] #### [facility] (DEFAULT) [address] [place] [address] Progress Note - Nurseon 02-13 Progress Note - Nurse Pre-op call for 03-02-2021 surgery made- patient informed of arrival time of 0600 tomorrow ,NPO after midnight except for any medication that he was instructed to take in morning, hibiclens shower x2-patient with understanding. [Electronically Signed on: 03/01/2021 09:42 EST] Rita Molina RN [Verified on: 03/01/2021 09:42 EST] Rita Molina RN [facility] Progress Note - Nurseon 01-14 Progress Note - Nurse PAT review done per Dr. Mccauley, no orders received. [Electronically Signed on: 02/08/2021 10:37 EST] Oliva Rabago RN [Verified on: 02/08/2021 10:37 EST] Oliva Rabago RN [facility] .Auto Diff 02-04-2021 Auto [place] % 10 % Normal 02-24 [facility] Comment on above: Performed By: #### 1 [id number], [id number], [id number] ####[facility] (DEFAULT)[address] [place] [address] Baso Abs# 0.0 x10 Normal 0.0-0.2 [facility] Comment on above: Performed By: #### 1 [id number], [id number], [id number] ####[facility] (DEFAULT)[address] [place] [address] Basophils/100 WBC (Bld) 0.3 % Normal 0.2-2.0 [facility] Comment on above: Performed By: #### 1 [id number], [id number], [id number] ####[facility] (DEFAULT)[address] [place] [address]703 Eos Abs# 0.1 x10 Normal 0.0-0.4 [facility] Comment on above: Performed By: #### 1 [id number], [id number], [id number] ####[facility] (DEFAULT)[address] [place] [address] 57485 Eosinophils/100 WBC (Bld) 1.1 % Normal 0.9-4.0 [facility] Comment on above: Performed By: #### 1 [id number], [id number], [id number] ####[facility] (DEFAULT)[address] [place] [address] 99395 Lymph Abs# 2.0 x10 Normal 1.3-2.9 [facility] Comment on above: Performed By: #### 1 [id number], [id number], [id number] ####[facility] (DEFAULT)[address] [place] [address] 92215 Lymphocytes/100 WBC (Bld) 27 % Normal 14-48 [facility] Comment on above: Performed By: #### 1 [id number], [id number], [id number] ####[facility] (DEFAULT)[address] [place] [address]39 [place] Abs# 0.7 x10 Normal 0.0-0.8 [facility] Comment on above: Performed By: #### 1 [id number], [id number], [id number] ####[facility] (DEFAULT)[address] [place] [address] 28951 Neut Abs# 4.5 x10 Normal 1.5-9.2 [facility] Comment on above: Performed By: #### 1 [id number], [id number], [id number] ####[facility] (DEFAULT)[address] [place] [address] 87293 Neutrophils/100 WBC (Bld) 62 % Normal 44-88 [facility] Comment on above: Performed By: #### 1 [id number], [id number], [id number] ####[facility] (DEFAULT)[address] [place] [address]38 [facility] Standardon 02-04-2021 eGFR Non AA >60 Invalid Interpretation Code [facility] Comment on above: Performed By: #### 1 [id number], [id number], [id number] ####[facility] (DEFAULT)[address] [place] [address] 45546 eGFR AA >60 Invalid Interpretation Code [facility] Comment on above: Result Comment: Inker korina Kidney disease could be indicated at eGFRs of less than 60 ml/min/1.73m2. Kidney Failure is indicated at less than 15 ml/min/1.73m2 Performed By: #### 1 [id number], [id number], [id number] ####[facility] (DEFAULT)[address] [place] [address] 36925 Anion gap [Moles/Vol] 14.0 mmol/L Normal 5.0-19.0 [facility] Comment on above: Performed By: #### 1 [id number], [id number], [id number] ####[facility] (DEFAULT)[address] [place] [address] 91643 Calcium [Mass/Vol] 9.5 mg/dL Normal 8.9-10.3 [facility] Comment on above: Performed By: #### 1 [id number], [id number], [id number] ####[facility] (DEFAULT)[address] [place] [address] 20735 Chloride [Moles/Vol] 99 mmol/L Low 101-111 [facility] Comment on above: Performed By: #### 1 [id number], [id number], [id number] ####[facility] (DEFAULT)[address] [place] [address] 74012 CO2 [Moles/Vol] 28 mmol/L Normal 21-32 [facility] Comment on above: Performed By: #### 1 [id number], [id number], [id number] ####[facility] (DEFAULT)[address] [place] [address] 63685 Creatinine [Mass/Vol] 0.89 mg/dL Low 0.90-1.30 [facility] Comment on above: Performed By: #### 1 [id number], [id number], [id number] ####[facility] (DEFAULT)[address] [place] [place] [address] 09505 Glucose [Mass/Vol] 135.0 mg/dL High 74.0-118.0 [facility] Comment on above: Performed By: #### 1 [id number], [id number], [id number] ####[facility] (DEFAULT)[address] [place] [address] 41678 Osmolality 278 mOsm/L Invalid Interpretation Code [facility] Comment on above: Performed By: #### 1 [id number], [id number], [id number] ####[facility] (DEFAULT)[address] [place] [address] 36464 Potassium [Moles/Vol] 4.1 mmol/L Normal 3.6-5.1 [facility] Comment on above: Performed By: #### 1 [id number], [id number], 9793331 ####[facility] (DEFAULT)[address] [place] [address] 90097 Sodium [Moles/Vol] 137.0 mmol/L Normal 136.0-144.0 [facility] Comment on above: Performed By: #### 1 [id number], [id number], 8245329 ####[facility] (DEFAULT)[address] [place] [place] [address] 52690 Urea nitrogen [Mass/Vol] 19 mg/dL Normal 8-26 [facility] Comment on above: Performed By: #### 1 [id number], [id number], [id number] ####[facility] (DEFAULT)[address] [place] [address] 67925 Urea nitrogen/Creatinine [Mass ratio] 21.0 mg/mg High 4.6-16.2 [facility] Comment on above: Performed By: #### 1 [id number], [id number], [id number] ####[facility] (DEFAULT)[address] [place] [address] 98910 CBC w/ Auto Diffon 1 Erythrocyte distribution width (RBC) [Ratio] 13.4 % Normal 11.5-15.0 [facility] Comment on above: Performed By: #### 1 [id number], [id number], 9184050 ####[facility] (DEFAULT)[address] [place] [address] Hematocrit (Bld) [Volume fraction] 48.0 % Normal 34.8-51.9 [facility] Comment on above: Performed By: #### 1 [id number], [id number], [id number] ####[facility] (DEFAULT)[address] [place] [address] Hemoglobin (Bld) [Mass/Vol] 15.5 g/dL Normal 11.8-17.7 [facility] Comment on above: Performed By: #### 1 [id number], [id number], [id number] ####[facility] (DEFAULT)[address] [place] [address] Instr WBC 7.3 x10 Invalid Interpretation Code [facility] Comment on above: Performed By: #### 1 [id number], [id number], 9605825 ####[facility] (DEFAULT)[address] [place] [address] Man Diff? Auto Normal [facility] Comment on above: Performed By: #### 1 [id number], [id number], [id number] ####[facility] (DEFAULT)[address] [place] [address] MCH (RBC) [Entitic mass] 30 pg Normal 24-34 [facility] Comment on above: Performed By: #### 1 [id number], [id number], 4344527 ####[facility] (DEFAULT)[address] [place] [address] MCHC (RBC) [Mass/Vol] 32 g/dL Normal 26-37 [facility] Comment on above: Performed By: #### 1 [id number], [id number], [id number] ####[facility] (DEFAULT)[address] [place] [address] MCV (RBC) [Entitic vol] 94 fL Normal 81-100 [facility] Comment on above: Performed By: #### 1 [id number], [id number], 4745917 ####[facility] (DEFAULT)[address] [place] [address] 89565 Platelet 196 x10 Normal 138-427 [facility] Comment on above: Performed By: #### 1 [id number], [id number], 7888033 ####[facility] (DEFAULT)[address] [place] [address] 27268 Platelet mean volume (Bld) [Entitic vol] 10.3 fL High 6.3-10.2 [facility] Comment on above: Performed By: #### 1 [id number], [id number], 5667068 ####[facility] (DEFAULT)[address] [place] [address] 54204 RBC 5.13 x10 Normal 3.70-5.30 [facility] Comment on above: Performed By: #### 1 [id number], [id number], [id number] ####[facility] (DEFAULT)[address] [place] [address] 55054 WBC 7.3 x10 Normal 3.5-10.5 [facility] Comment on above: Performed By: #### 1 [id number], [id number], 7699053 ####[facility] (DEFAULT)[address] [place] [place] [address] 81317 UA w Culture if Ind Standard on 02-04-2021 Breakpoint UA [facility] Comment on above: Performed By: #### 1 [id number] #### [facility] (DEFAULT) [address] [place] [address] 85763 Color (U) Yellow Normal [facility] Comment on above: Performed By: #### 1 [id number] #### [facility] (DEFAULT) [address] [place] [address] 65673 Culture? No [facility] Comment on above: Result Comment: Resu lt created by rule GL_MAGR_ADD_UA_CULT1 Result created by rule GL_MAGR_ADD_UA_CULT1 Performed By: #### 1 [id number] #### [facility] (DEFAULT) [address] [place] [address] 68133 Glucose (U) [Mass/Vol] Negative Normal [facility] Comment on above: Performed By: #### 1 [id number] #### [facility] (DEFAULT) [address] [place] [address] 99936 Ketones Ql (U) Negative Normal [facility] Comment on above: Performed By: #### 1 [id number] #### [facility] (DEFAULT) [address] [place] [address] 53892 Micro? Not Indicated [facility] Comment on above: Result Comment: Resu lt created by rule GL_MAGR_ADD_UA_MICRO Performed By: #### 1 [id number] #### [facility] (DEFAULT) [address] [place] [address] 66155 UA Bilirubin Negative Normal [facility] Comment on above: Performed By: #### 1 [id number] #### [facility] (DEFAULT) [address] [place] [address] 41569 UA Blood Negative Normal NEGATIVE [facility] Comment on above: Performed By: #### 1 [id number] #### [facility] (DEFAULT) [address] [place] [address] 96768 UA Clarity CLEAR Normal CLEAR [facility] Comment on above: Performed By: #### 1 [id number] #### [facility] (DEFAULT) [address] [place] [address] 67642 UA Leuk Est Negative Normal NEGATIVE [facility] Comment on above: Performed By: #### 1 [id number] #### [facility] (DEFAULT) [address] [place] [address] 56220 UA Nitrite Negative Normal NEGATIVE [facility] Comment on above: Performed By: #### 1 [id number] #### [facility] (DEFAULT) [address] [place] [address] 22722 UA pH 6.0 Normal 5-8 [facility] Comment on above: Performed By: #### 1 [id number] #### [facility] (DEFAULT) [address] [place] [address] 73988 UA Protein Negative Normal NEGATIVE [facility] Comment on above: Performed By: #### 1 [id number] #### [facility] (DEFAULT) [address] [place] [address] 54687 UA Spec Grav >=1.030 Normal 1.001-1.035 [facility] Comment on above: Performed By: #### 1 [id number] #### [facility] (DEFAULT) [address] [place] [address] UA Urobilinogen 0.2 mg/dL Normal 0.2-1.0 [facility] Comment on above: Performed By: #### 1 [id number] #### [facility] (DEFAULT) [address] [place] [address] 11007 Urine Source Clean Catch [facility] Comment on above: Performed By: #### 1 [id number] #### [facility] (DEFAULT) [address] [place] [address] XR Bone Length Studies [facility] 02-04-2021 XR Bone Length Studies [...] John Mckenna MD 02/08/21 7:27 am Technologist: LTCS [facility] Echo 2D w doppler w color co mpleteOrdered By: Ej Foster on 09-23-2020 [facility] Transthoracic Echocardiography Report (TTE) Patient Name HEBERLING Date of Study 09/23/2020 ZAINA Morales Date of 1950 Gender Male Age 69 year(s) Race Room Number Height: 72 inch, 182.88 cm Corporate ID [id number] Weight: 288 pounds, 130.6 kg # Patient Acct [id number] BSA: 2.49 m^2 BMI: 39.06 # kg/m^2 MR # [id number] Flosser Debi Lopez Interpreting Physician Ej Foster Fellow Referring Nurse Practitioner Interpreting Referring Physician Ej Foster Type of Study TTE procedure:2D Echocardiogram, M-Mode, Doppler, Color Doppler. Procedure Date Date: 09/23/2020 Start: 11:32 AM Study Location: [facility] Indications:Atrial fibrillation. History / Tech. Comments: [...] TR Velocity: 2.17 m/s Peak TR Gradient: 18.17343 mmHg Estimated RA Pressure: 3 mmHg Estimated PASP: 21.79 mmHg Diastology / Tissue Doppler Lateral Wall E' velocity:0.07 m/s Lateral Wall E/E':7.23 [employer] Work Phone: Shankar, pn Incoming Cardio Results From [employer] - 09/23/2020 5:27 PM EDT [facility] Transthoracic Echocardiography Report (TTE) Patient Name HEBERLING Date of Study 09/23/2020 ZAINA D Date of 1950 Gender Male Age 69 year(s) Race Room Number Height: 72 inch, 182.88 cm Corporate ID [id number] Weight: 288 pounds, 130.6 kg # Patient Acct [id number] BSA: 2.49 m^2 BMI: 39.06 # kg/m^2 MR # [id number] Flosser Jessica,Debi Interpreting Physician Ej Foster Fellow Referring Nurse Practitioner Interpreting Referring Physician Ej Foster Type of Study TTE procedure:2D Echocardiogram, M-Mode, Doppler, Color Doppler. Procedure Date Date: 09/23/2020 Start: 11:32 AM Study Location: [facility] Indications:Atrial fibrillation. History / Tech. Comments: A ann PMHX: HTN Patient Status: Outpatient Height: 72 [...] TR Velocity: 2.17 m/s Peak TR Gradient: 18.37603 mmHg Estimated RA Pressure: 3 mmHg Estimated PASP: 21.79 mmHg Diastology / Tissue Doppler Lateral Wall E' velocity:0.07 m/s Lateral Wall E/E':7.23 [employer] Phone: [employer] Phone: Basic Metabolic Panelon Anion gap [Moles/Vol] 10 mmol/L 9 - 17 mmol/L [place] Bun/Cre Ratio 21 High [place], [place] Calcium [Mass/Vol] 9.7 mg/dL 8.6 - 10. 4 mg/dL [place] Chloride [Moles/Vol] 101 mmol/L 98 - 10 7 mmol/L [place] CO2 [Moles/Vol] 28 mmol/L 20 - 31 mmol/L [place] Creatinine [Mass/Vol] 0.89 mg/dL 0.7 - 1.2 mg/dL [place] GFR >60 >60 mL/min [place] GFR Non- >60 >60 mL/min [place] Glucose [Mass/Vol] 101 mg/dL High 70 - 99 mg/dL [place], [place] Interpretation and review of laboratory results Abnormal [place] Potassium [Moles/Vol] 4.3 mmol/L 3.7 - 5.3 mmol/L [place] Sodium [Moles/Vol] 139 mmol/L 135 - 144 mmol/L [place] Urea nitrogen [Mass/Vol] 19 mg/dL 8 - 23 mg/dL [place] Lipid Panelon 03-10-2020 Cholesterol [Mass/Vol] 162 mg/dL <200 [place] Comment on above: Cholesterol Guidelines: <200 Desirable 200-240 Borderline >240 Undesirable Cholesterol in HDL [Mass/Vol] 41 mg/dL >40 [place] Comment on above: HDL Guidelines: <40 Undesirable 40-59 Borderline >59 Desirable Cholesterol in LDL [Mass/Vol] 102 mg/dL 0 - 130 mg/dL [place] Comment on above: LDL Guidelines: <100 Desirable 100-129 Near to/above Desirable 130-159 Borderline >159 Undesirable Direct (measured) LDL and calculated LDL are not interchangeable tests. Cholesterol in VLDL [Mass/Vol] NOT REPORTED 1 - 30 mg/dL [place] Cholesterol.total/Ch olesterol in HDL [Mass ratio] 4 {ratio} <5 [place] Triglyceride [Mass/Vol] 97 mg/dL <150 [place] Comment on above: Triglyceride Guidelines: <150 Desirable 150-199 Borderline 200-499 High >499 Very high Based on AHA Guidelines for fasting triglyceride, November 2011. Metabolic Panelon 03-10-2020 GFR/1.73 sq M predicted among non-blacks MDRD (S/P/Bld) [Vol rate/Area] [place] Comment on above: Stage 1: Some [...] body mass. Additional eGFR calculator available at: http://www.[employer]/multiple_crcl_2011.htm Basic Metabolic Panelon 12-0 Anion gap [Moles/Vol] 9 mmol/L 9 - 17 mmol/L [place] Bun/Cre Ratio 16 [place] Calcium [Mass/Vol] 9.6 mg/dL 8.6 - 10. 4 mg/dL [place] Chloride [Moles/Vol] 101 mmol/L 98 - 10 7 mmol/L [place] CO2 [Moles/Vol] 29 mmol/L 20 - 31 mmol/L [place] Creatinine [Mass/Vol] 0.76 mg/dL 0.7 - 1.2 mg/dL [place] GFR >60 >60 mL/min [place] GFR Non- >60 >60 mL/min [place] Glucose [Mass/Vol] 118 mg/dL High 70 - 99 mg/dL [place] Interpretation and review of laboratory results Abnormal [place] Potassium [Moles/Vol] 4.7 mmol/L 3.7 - 5.3 mmol/L [place] Sodium [Moles/Vol] 139 mmol/L 135 - 144 mmol/L [place] Urea nitrogen [Mass/Vol] 12 mg/dL 8 - 23 mg/dL [place] CBCon 01-22-2020 Erythrocyte distribution width (RBC) [Ratio] 14.2 % 11.8 - 14.4 % [place] Hematocrit (Bld) [Volume fraction] 43.4 % 40.7 - 50.3 % [place] Hemoglobin (Bld) [Mass/Vol] 13.4 g/dL 13 - 17 g/dL [place] MCH (RBC) [Entitic mass] 28.9 pg 25.2 - 33.5 pg [place] MCHC (RBC) [Mass/Vol] 30.9 g/dL 28.4 - 34.8 g/dL [place] MCV (RBC) [Entitic vol] 93.7 fL 82.6 - 102.9 fL [place] Platelet mean volume (Bld) [Entitic vol] 9.9 fL 8.1 - 13.5 fL [place] Platelets (Bld) [#/Vol] 217 10*3/uL [place] RBC (Bld) [#/Vol] 4.63 10*6/uL 4.21 - 5.7 7 m/uL [place] WBC (Bld) [#/Vol] 0.0 10*3/uL 0.0 per 10 0 WBC [place] WBC (Bld) [#/Vol] 5.7 10*3/uL [place] ECHO Complete 2D W Doppler W Coloron 01-22-2020 [facility] Transthoracic Echocardiography Report (TTE) Patient Name HEBERLING Date of Study 01/22/2020 ZAINA Morales Date of 1950 Gender Male Age 69 year(s) Race Room Number Height: 73 inch, 185.42 cm Corporate ID [id number] Weight: 273 pounds, 123.8 kg # Patient Acct [id number] BSA: 2.46 m^2 BMI: 36.02 # kg/m^2 MR # [id number] Flosser Nini Todd Interpreting Physician Ej Foster Fellow Referring Nurse Practitioner Interpreting Referring Physician Ej Foster Fellow Type of Study TTE procedure:2D Echocardiogram, M-Mode, Doppler, Color Doppler. Procedure Date Date: 01/22/2020 Start: 09:22 AM Study Location: [facility] Indications:Atrial fibrillation, Dyspnea/SOB and History of [...] Wall E' velocity:0.11 m/s Lateral Wall E/E':6.91 [facility] [place] [place] Shankar, Mhpn Incoming Cardio Results From [facility]/ - 01/22/2020 5:08 PM EST [facility] Transthoracic Echocardiography Report (TTE) Patient Name SINGH Date of Study 01/22/2020 ZAINA Morales Date of 1950 Gender Male Age 69 year(s) Race Room Number Height: 73 inch, 185.42 cm Corporate ID [id number] Weight: 273 pounds, 123.8 kg # Patient Acct [id number] BSA: 2.46 m^2 BMI: 36.02 # kg/m^2 MR # [id number] Flosser PerezNini Interpreting Physician Ej Foster Fellow Referring Nurse Practitioner Interpreting Referring Physician Ej Foster Fellow Type of Study TTE procedure:2D Echocardiogram, M-Mode, Doppler, Color Doppler. Procedure Date Date: 01/22/2020 Start: 09:22 AM Study Location: [facility] Indications:Atrial fibrillation, Dyspnea/SOB and History of [...] Wall E' velocity:0.11 m/s Lateral Wall E/E':6.91 [place] Hemoglobin A1Con 01-22-2020 Glucose [Mass/Vol] 123 mg/dL [place] Comment on above: The ADA and AACC rec ommend providing the estimated average glucose result to permit better patient understanding of their HBA1c result. HbA1c (Bld) [Mass fraction] 5.9 % 4 - 6 % [place] Metabolic Panelon 01-22-2020 GFR/1.73 sq M predicted among non-blacks MDRD (S/P/Bld) [Vol rate/Area] [place] Comment on above: Stage 1: Some [...] body mass. Additional eGFR calculator available at: http://www.[employer]ophe [employer]_crcl_2012.htm Troponin Ion 01-22-2020 Troponin I.cardiac [Mass/Vol] NOT REPORTED [place] Troponin T.cardiac [Mass/Vol] NOT REPORTED <0.03 ng/mL [place] Troponin, High Sensitivity 15 ng/L 0 - 22 ng/L [place] Comment on above: High Sensitivity Troponin values cannot be compared with other Troponin methodologies. Patients with high levels of Biotin oral intake (i.e >5mg/day) may have falsely decreased Troponin levels. Samples collected within 8 hours of biotin intake may require additional information for diagnosis. BNPon 12-16-2019 Natriuretic peptide B (Bld) [Mass/Vol] 595.0 pg/mL Normal <=900.0 [facility] Comment on above: Performed By: #### T ROP, BNP, CMP, CRP #### [facility] [address] [place], [place] [address] Cheryl Srinivasan CBC AUTO DIFFon 12-16-2019 Basophils (Bld) [#/Vol] 0.0 103/ul Normal 0.0-0.1 [facility] Comment on above: Performed By: #### C BC #### [facility] [address] [place], [place] [address] Cheryl Zarina Basophils/100 WBC (Bld) 0.1 % Critically low 0.2-2.0 [facility] Comment on above: Performed By: #### C BC #### [facility] [address] [place] [address] Cheryl Zarina Eosinophils (Bld) [#/Vol] 0.0 103/ul Normal 0.0-0.7 [facility] Comment on above: Performed By: #### C BC #### [facility] [address] [place] [address] Cheryl Zarina Eosinophils/100 WBC (Bld) 0.0 % Critically low 0.9-7.0 [facility] Comment on above: Performed By: #### C BC #### [facility] [address] [place] [address] Cheryl Zarina Erythrocyte distribution width (RBC) [Ratio] 12.9 % Normal 11.0-15.0 [facility] Comment on above: Performed By: #### C BC #### [facility] [address] [place] [address] Cheryl Zarina Hematocrit (Bld) [Volume fraction] 45.2 % Normal 42.0-54.0 [facility] Comment on above: Performed By: #### C BC #### [facility] [address] [place] [address] Cheryl Zarina Hemoglobin (Bld) [Mass/Vol] 15.1 g/dL Normal 14.0-18.0 [facility] Comment on above: Performed By: #### C BC #### [facility] [address] [place] [address] Cheryl Zarina IG # 0.06 10e3/ul Critically high 0.00-0.03 [facility] Comment on above: Performed By: #### C BC #### [facility] [address] [place], [place] [id number] Cheryl Zarina IG % 0.6 % Critically high 0.0-0.5 [facility] Comment on above: Performed By: #### C BC #### [facility] [address] [place], [place] [id number] Cheryl Zarina Lymphocytes (Bld) [#/Vol] 1.0 103/ul Critically low 1.2-3.8 [facility] Comment on above: Performed By: #### C BC #### [facility] [address] [place] [address] Cheryl Zarina Lymphocytes/100 WBC (Bld) 10.1 % Critically low 20.5-60.0 [facility] Comment on above: Performed By: #### C BC #### [facility] [address] [place] [address] Cheryl Zarina MANUAL DIFF REQ NO Normal [facility] Comment on above: Performed By: #### C BC #### [facility] [address] [place], [place] [id number] Cheryl Zarina MCH (RBC) [Entitic mass] 30.0 pg Normal 25.9-34.0 [facility] Comment on above: Performed By: #### C BC #### [facility] [address] [place] [address] Cheryl Zarina MCHC (RBC) [Mass/Vol] 33.4 g/dL Normal 29.9-35.2 [facility] Comment on above: Performed By: #### C BC #### [facility] [address] [place] [address] Cheryl Zarina MCV (RBC) [Entitic vol] 89.7 fL Normal 80.0-94.0 [facility] Comment on above: Performed By: #### C BC #### [facility] [address] [place] [address] Cheryl Zarina Monocytes (Bld) [#/Vol] 0.3 103/ul Normal 0.3-0.8 [facility] Comment on above: Performed By: #### C BC #### [facility] [address] [place], [place] [id number] Cheryl Zarina Monocytes/100 WBC (Bld) 3.4 % Normal 1.7-12.0 [facility] Comment on above: Performed By: #### C BC #### [facility] [address] [place], [place] [id number] Cheryl Zarina Neutrophils (Bld) [#/Vol] 8.3 103/ul Critically high 1.4-6.5 [facility] Comment on above: Performed By: #### C BC #### [facility] [address] [place], [place] [address] Cheryl Srinivasan Neutrophils/100 WBC (Bld) 85.8 % Critically high 43.0-75.0 [facility] Comment on above: Performed By: #### C BC #### [facility] [address] [place], [place] [address] Cheryljason Srinivasan Platelet mean volume (Bld) [Entitic vol] 9.7 fL Normal 9.5-13.5 [facility] Comment on above: Performed By: #### C BC #### [facility] [address] [place], [place] [address] Cheryl Zarina Platelets (Bld) [#/Vol] 270 103/ul Normal 150-450 [facility] Comment on above: Performed By: #### C BC #### [facility] [address] [place], [place] [address] Cheryl Menaen RBC (Bld) [#/Vol] 5.04 106/ul Normal 4.70-6.[address] [facility] Comment on above: Performed By: #### C BC #### [facility] [address] [place], [place] [address] Cheryljason Menaen WBC (Bld) [#/Vol] 9.7 103/ul Normal 4.0-11.0 The [facility] Comment on above: Performed By: #### C BC #### [facility] [address] [place], [place] [address] Cheryljason Menaen CRPon 12-16-2019 CRP [Mass/Vol] 12.3 mg/dL Critically high <=1.0 [facility] Comment on above: Performed By: #### C BC #### [facility] [address] [place], [place] [address] Cheryl Zarina CTA CHEST WO W CONon [...] RUPESH ULRICH Date: 2019-12-16 05:43 Normal [facility] D-DIMERon 12-16-2019 D-DIMER COMMENTS SEE BELOW Normal [...] By: #### D DIM, PT, PTT #### [facility] [address] [place], [place] [address] Cheryl Srinivasan Fibrin D-dimer FEU IA (Bld) [Mass/Vol] 0.84 ug/mL Critically high 0.19-0.50 [facility] Comment on above: Result Comment: test repeated critcal value verified Performed By: #### D DIM, PT, PTT #### [facility] [address] [place], [place] [address] Cheryl Srinivasan LACTATE/LACTIC ACIDon 2019 Lactate [Moles/Vol] 1.8 mmol/L Normal 0.7-2.0 [facility] Comment on above: Performed By: #### L ACT #### [facility] [address] [place] [id number] Cheryl Srinivasan PROF 14(COMP METB)on 020 Albumin [Mass/Vol] 3.2 g/dL Critically low 3.5-5.0 [facility] Comment on above: Performed By: #### T ROP, BNP, CMP, CRP #### [facility] [address] [place] [id number] Cheryl Srinivasan Albumin/Globulin [Mass ratio] 0.8 {ratio} Normal [facility] Comment on above: Performed By: #### T ROP, BNP, CMP, CRP #### [facility] [address] [place] [address] Cheryl Zarina ALP [Catalytic activity/Vol] 85 U/L Normal 38-126 [facility] Comment on above: Performed By: #### T ROP, BNP, CMP, CRP #### [facility] [address] [place] [address] Cheryl Zarina ALT [Catalytic activity/Vol] 63 U/L Normal 21-72 [facility] Comment on above: Performed By: #### T ROP, BNP, CMP, CRP #### [facility] [address] [place] [id number] Cheryl Zarina Anion gap [Moles/Vol] 14.2 mmol/L Normal [facility] Comment on above: Performed By: #### T ROP, BNP, CMP, CRP #### [facility] [address] [place] [address] Cheryl Zarina AST [Catalytic activity/Vol] 53 U/L Normal 17-59 [facility] Comment on above: Performed By: #### T ROP, BNP, CMP, CRP #### [facility] [address] [place] [id number] Cheryl Zarina Bilirubin Ql (U) 1.0 mg/dL Normal 0.2-1.3 The [facility] Comment on above: Performed By: #### T ROP, BNP, CMP, CRP #### [facility] [address] [place] [address] Cheryl Zarina Calcium [Mass/Vol] 9.0 mg/dL Normal 8.4-10.2 [facility] Comment on above: Performed By: #### T ROP, BNP, CMP, CRP #### [facility] [address] [address] Cheryl Zarina Chloride [Moles/Vol] 96 mmol/L Critically low 98-107 [facility] Comment on above: Performed By: #### T ROP, BNP, CMP, CRP #### [facility] [address] [address] Cheryl Zarina CO2 [Moles/Vol] 25.8 mmol/L Normal 22.0-30.0 [facility] Comment on above: Performed By: #### T ROP, BNP, CMP, CRP #### [facility] [address] [place] [address] Cheryl Zarina Creatinine [Mass/Vol] 0.90 mg/dL Normal 0.66-1.25 [facility] Comment on above: Performed By: #### T ROP, BNP, CMP, CRP #### [facility] [address] [address] Cheryl Zarina EGFR-AF [place] >60 Normal >=60 [facility] Comment on above: Performed By: #### T ROP, BNP, CMP, CRP #### [facility] [address] [place] [address] Cheryl Zarina EGFR-NON AF [place] >60 Normal >=60 [facility] Comment on above: Performed By: #### T ROP, BNP, CMP, CRP #### [facility] [address] [address] Cheryl Zarina Globulin (S) [Mass/Vol] 4.1 g/dL Normal [facility] Comment on above: Performed By: #### T ROP, BNP, CMP, CRP #### [facility] [address] [address] Cheryl Zarina Glucose [Mass/Vol] 146 mg/dL Critically high 74-106 [facility] Comment on above: Performed By: #### T ROP, BNP, CMP, CRP #### [facility] [address] [place] [address] Cheryl Zarina Potassium [Moles/Vol] 4.0 mmol/L Normal 3.4-5.0 [facility] Comment on above: Performed By: #### T ROP, BNP, CMP, CRP #### [facility] [address] [place] [address] Cheryl Zarina Protein [Mass/Vol] 7.3 g/dL Normal 6.1-8.2 [facility] Comment on above: Performed By: #### T ROP, BNP, CMP, CRP #### [facility] [address] [place] [address] Cheryl Zarina Sodium [Moles/Vol] 132 mmol/L Critically low 137-145 [facility] Comment on above: Performed By: #### T ROP, BNP, CMP, CRP #### [facility] [address] [place] [address] Cheryl Zarina Urea nitrogen [Mass/Vol] 18.0 mg/dL Normal 9.0-20.0 [facility] Comment on above: Performed By: #### T ROP, BNP, CMP, CRP #### [facility] [address] [place] [address] Cheryl Zarina Urea nitrogen/Creatinine [Mass ratio] 20.0 mg/mg Normal [facility] Comment on above: Performed By: #### T ROP, BNP, CMP, CRP #### [facility] [address] [place] [address] Cheryl Zarina PROTIMEon 12-16-2019 INR Coag (PPP) [Relative time] 0.97 {INR} Normal [facility] Comment on above: Performed By: #### D DIM, PT, PTT #### [facility] [address] [place] [address] Cheryl Zarina PT Coag (PPP) [Time] PLEASE NOTE: NORMAL RANGE CHANGE 10-31-2013 DUE TO REAGENT LOT CHANGE Normal [facility] Comment on above: Performed By: #### D DIM, PT, PTT #### [facility] [address] [place], [place] [id number] Cheryl Srinivasan PT Coag (PPP) [Time] 10.3 s Normal 9.0-11.6 [facility] Comment on above: Performed By: #### D DIM, PT, PTT #### [facility] [address] [place], [place] [phone] Cheryl Srinivasan PT Coag (PPP) [Time] SEE BELOW Normal [facility] Comment on above: Result Comment: CHEMO RED INR: 2.0 - 3.0 CONDITIONS NOT LISTED BELOW 2.5 - 3.5 FOR PROSTHETIC HEART VALVE REPLACEMENT 2.5 - 3.5 RECURRENT THROMBOSIS Performed By: #### D DIM, PT, PTT #### [facility] [address] [place] [address] Cheryl Srinivasan PTTon 12-16-2019 aPTT Coag (Bld) [Time] PLEASE NOTE: NORMAL RANGE CHANGE 01-07-2015 DUE TO REAGENT LOT CHANGE Normal [facility] Comment on above: Performed By: #### D DIM, PT, PTT #### [facility] [address] [place] [address] Cheryl Srinivasan aPTT Coag (Bld) [Time] 26.0 s Normal 22.3-36.2 [facility] Comment on above: Performed By: #### D DIM, PT, PTT #### [facility] [address] [place], [place] [id number] Cheryl Srinivasan Rapid Covid-19 PCRon 020 Axela LDT Info SEE BELOW Normal The [facility] Comment on above: Result Comment: This test is not yet approved or cleared by the [place] Food and Drug Administration (FDA) . This test was developed by [employer] [place]. The performance characteristics of this test were validated by The [facility]. The results are not intended to be used as the sole means for clinical diagnosis or patient management decisions. [facility] is authorized under Clinical Laboratory Improvement Amendments (CLIA) to perform high-complexity testing. When diagnostic testing is negative, the possibility of a false negative should be considered in the context of a patients recent exposures and the presence of clinical signs and symptoms consistent with SARS-CoV-2. Performed By: #### C VDRPD #### [facility] [address] [place], [place] [address] Cheryl Srinivasan SARS-CoV-2 DETECTED NOT DETECTED [facility] Comment on above: Result Comment: . Performed By: #### C VDRPD #### [facility] [address] [place], [place] [address] Chreyl Srinivasan TROPONIN - Ion 12-16-2019 Troponin I.cardiac [Mass/Vol] ng/mL Normal <=0.034 [facility] Comment on above: Performed By: #### C BC #### [facility] [address] [place], [place] [address] Cheryl Srinivasan Troponin I.cardiac [Mass/Vol] SEE BELOW Normal [facility] Comment on above: Result Comment: <0.0 34 ng/ml NEGATIVE 0.034-0.119 INDETERMINATE 0.120 AMI CUT OFF Performed By: #### C BC #### [facility] [address] [place], [place] [address] Cheryl Srinivasan Vital Signs Date Time Vital Sign Value Performing Clinician Ernestinai lity 09-18-2024 12:54-0400 Body height 181.6 cm Kenia Castillo [employer]ATION SALES TECHNICIAN Work Phone: [facility] 09-18-2024 12:54-0400 Body mass index (BMI) [Ratio] 42.08 kg/m2 Kenia Castillo SECURITY IN[employer]ALLATION SALES TECHNICIAN Work Phone: [facility] 09-18-2024 12:54-0400 Body weight 138.8 kg Kenia Castillo SECURITY INSTALLATION SALES TECHNICIAN Work Phone: [facility] 09-18-2024 12:54-0400 Diastolic blood pressure 78 mm[Hg] Kenia Castillo SECURITY INSTALLATION SALES TECHNICIAN Work Phone: [facility] 09-18-2024 12:54-0400 Heart rate 78 /min Kenia Castillo SECURITY INSTALLATION SALES TECHNICIAN Work Phone: [facility] 09-18-2024 12:54-0400 Respiratory rate 18 /min Kenia Castillo SECURITY INSTALLATION SALES TECHNICIAN Work Phone: [facility] 09-18-2024 12:54-0400 SaO2% (BldA) [Mass fraction] 98 % Kenia Castillo SECURITY INSTALLATION SALES TECHNICIAN Work Phone: [facility] 09-18-2024 12:54-0400 Systolic blood pressure 130 mm[Hg] Kenia Castillo SECURITY INSTALLATION SALES TECHNICIAN Work Phone: [facility] 09-03-2024 12:54-0400 Body height 181.6 cm Arianna Lou DPM Work Phone: [facility] 09-03-2024 12:54-0400 Body mass index (BMI) [Ratio] 43.51 kg/m2 Arianna Lou DPM Work Phone: [facility] 09-03-2024 12:54-0400 Body weight 143.52 kg Arianna Lou DPM Work Phone: [facility] 07-09-2024 13:53-0400 Body height 181.6 cm Kenia Castillo SECURITY INSTALLATION SALES TECHNICIAN Work Phone: [facility] 07-09-2024 13:53-0400 Body mass index (BMI) [Ratio] 43.51 kg/m2 Kenia Castillo SECURITY INSTALLATION SALES TECHNICIAN Work Phone: [facility] 07-09-2024 13:53-0400 Body weight 143.52 kg Kenia Castillo SECURITY INSTALLATION SALES TECHNICIAN Work Phone: [facility] 07-09-2024 13:53-0400 Diastolic blood pressure 72 mm[Hg] Kenia Castillo SECURITY INSTALLATION SALES TECHNICIAN Work Phone: [facility] 07-09-2024 13:53-0400 Heart rate 61 /min Kenia Castillo SEC[employer]ITY INSTALLATION SALES TECHNICIAN Work Phone: [facility] 07-09-2024 13:53-0400 SaO2% (BldA) [Mass fraction] 96 % Kenia Castillo SECURITY INSTALLATION SALES TECHNICIAN Work Phone: [facility] 07-09-2024 13:53-0400 Systolic blood pressure 124 mm[Hg] Kenia Castillo SECURITY INSTALLATION SALES TECHNICIAN Work Phone: [facility] 05-20-2024 13:54-0400 Body height 181.6 cm Kenia Castillo SECURITY INSTALLATION SALES TECHNICIAN Work Phone: [facility] 05-20-2024 13:54-0400 Body mass index (BMI) [Ratio] 42.69 kg/m2 Kenia Castillo SECURITY INSTALLATION SALES TECHNICIAN Work Phone: [facility] 05-20-2024 13:54-0400 Body temperature 98.91 [degF] Kenia Castillo SECURITY INSTALLATION SALES TECHNICIAN Work Phone: [facility] 05-20-2024 13:54-0400 Body weight 140.8 kg Kenia Castillo SECURITY INSTALLATION SALES TECHNICIAN Work Phone: [facility] 05-20-2024 13:54-0400 Diastolic blood pressure 64 mm[Hg] Kenia Castillo SECURITY INSTALLATION SALES TECHNICIAN Work Phone: [facility] 05-20-2024 13:54-0400 Heart rate 68 /min Kenia Castillo SECURITY INSTALLATION SALES TECHNICIAN Work Phone: [facility] 05-20-2024 13:54-0400 SaO2% (BldA) [Mass fraction] 94 % Kenia Castillo SECURITY INSTALLATION SALES TECHNICIAN Work Phone: [facility] 05-20-2024 13:54-0400 Systolic blood pressure 126 mm[Hg] Kenia Castillo SECURITY INSTALLATION SALES TECHNICIAN Work Phone: [facility] 02-23-2024 12:30-0500 Diastolic blood pressure 97 mm[Hg] Ej Foster MD Work Phone: [facility] 02-23-2024 12:30-0500 Heart rate 57 /min Ej Foster MD Work Phone: [facility] 02-23-2024 12:30-0500 Respiratory rate 17 /min Ej Foster MD Work Phone: [facility] 02-23-2024 12:30-0500 SaO2% (BldA) [Mass fraction] 96 % Ej Foster MD Work Phone: [facility] 02-23-2024 12:30-0500 Systolic blood pressure 131 mm[Hg] Ej Foster MD Work Phone: [facility] 02-23-2024 12:11-0500 Body temperature 96.8 [degF] Ej Foster MD [facility] [employer] [facility] 02-20-2024 14:13-0500 Body height 181.6 cm Kenia Castillo SECURITY INSTALLATION SALES TECHNICIAN Work Phone: [facility] 02-20-2024 14:13-0500 Body mass index (BMI) [Ratio] 43.07 kg/m2 Kenia Castillo SECURITY INSTALLATION SALES TECHNICIAN Work Phone: [facility] 02-20-2024 14:13-0500 Body weight 142.07 kg Kenia Castillo SECURITY INSTALLATION SALES TECHNICIAN Work Phone: [facility] 02-20-2024 14:13-0500 Diastolic blood pressure 60 mm[Hg] Kenia Castillo SECURITY INSTALLATION SALES TECHNICIAN Work Phone: [facility] 02-20-2024 14:13-0500 Heart rate 98 /min Kenia Castillo SECURITY INSTALLATION SALES TECHNICIAN Work Phone: [facility] 02-20-2024 14:13-0500 SaO2% (BldA) [Mass fraction] 95 % Kenia Castillo SECURITY INSTALLATION SALES TECHNICIAN Work Phone: [facility] 02-20-2024 14:13-0500 Systolic blood pressure 120 mm[Hg] Kenia Castillo SECURITY INSTALLATION SALES TECHNICIAN Work Phone: [facility] 02-05-2024 14:54-0500 Body height 182.9 cm Mth 1 [facility] [employer] 02-05-2024 14:54-0500 Body mass index (BMI) [Ratio] 41.88 kg/m2 [facility] 1 [facility] [employer] 02-05-2024 14:54-0500 Body weight 140.1 kg Mth 1 [facility] [employer] 02-05-2024 14:54-0500 Diastolic blood pressure 77 mm[Hg] [facility] 02-05-2024 14:54-0500 Systolic blood pressure 120 mm[Hg] [facility] 12-26-2023 13:04-0500 Body mass index (BMI) [Ratio] 38.92 kg/m2 Jeannine Estevezpatrick SECURITY INSTALLATION SALES TECHNICIAN Work Phone: [facility] 12-26-2023 13:04-0500 Body temperature 97.39 [degF] Jeannine Blanchardtrick SECURITY INSTALLATION SALES TECHNICIAN Work Phone: [facility] 12-26-2023 13:04-0500 Body weight 133.81 kg Jeannine Estevezpatrick SECURITY INSTALLATION SALES TECHNICIAN Work Phone: [facility] 12-26-2023 13:04-0500 Diastolic blood pressure 74 mm[Hg] Jeannine Estevezpatrick SECURITY INSTALLATION SALES TECHNICIAN Work Phone: [facility] 12-26-2023 13:04-0500 Systolic blood pressure 160 mm[Hg] Jeannine Estevezpatrick SECURITY INSTALLATION SALES TECHNICIAN Work Phone: [facility] 11-15-2023 12:53-0400 Body height 185.4 cm Arianna Lou DPM Work Phone: [facility] 11-15-2023 12:53-0400 Body mass index (BMI) [Ratio] 40.13 kg/m2 Arianna Lou DPM Work Phone: [facility] 11-15-2023 12:53-0400 Body weight 137.98 kg Arianna Lou DPM Work Phone: [facility] 10-11-2023 08:58-0400 Body mass index (BMI) [Ratio] 40.13 kg/m2 Kenia Castillo SECURITY INSTALLATION SALES TECHNICIAN Work Phone: [facility] 10-11-2023 08:58-0400 Body temperature 96.69 [degF] Kenia Castillo SECURITY INSTALLATION SALES TECHNICIAN Work Phone: [facility] 10-11-2023 08:58-0400 Body weight 137.98 kg Kenia Castillo SECURITY INSTALLATION SALES TECHNICIAN Work Phone: [facility] 10-11-2023 08:58-0400 Diastolic blood pressure 86 mm[Hg] Kenia Castillo SECURITY INSTALLATION SALES TECHNICIAN Work Phone: [facility] 10-11-2023 08:58-0400 Heart rate 67 /min Kenia Castillo SECURITY INSTALLATION SALES TECHNICIAN Work Phone: [facility] 10-11-2023 08:58-0400 SaO2% (BldA) [Mass fraction] 95 % Kenia Castillo SECURITY INSTALLATION SALES TECHNICIAN Work Phone: [facility] 10-11-2023 08:58-0400 Systolic blood pressure 132 mm[Hg] Kenia Castillo SECURITY INSTALLATION SALES TECHNICIAN Work Phone: [facility] 02-12-2020 09:31-0500 Pulse Oximetry 98 % [facility] [place] 02-12-2020 09:30-0500 BP Diastolic 73 mm[Hg] [facility] [place] 02-12-2020 09:30-0500 BP Systolic 135 mm[Hg] [facility] [place] 02-12-2020 09:30-0500 Pulse (Heart Rate) 56 /min [facility] [place] 02-12-2020 09:30-0500 Respiratory Rate 22 /min [facility], [place] 02-12-2020 07:14-0500 BMI (Body Mass Index) 36.89 kg/m2 [facility] [place] 02-12-2020 07:14-0500 Body weight 123.38 kg [facility] [place], [place] 02-12-2020 07:14-0500 Height 182.9 cm [facility] [place] Encounters Encounter Date Encounter Type Care Provider Facility Start: 11-18-2024 End: 11-18-2024 ambulatory Ever Guillen MD Facility: [facility] Start: 10-07-2024 End: 10-07-2024 ambulatory Mony Hdezink [employer] [facility] Comment on above: Spinal stenosis, lum bar region with neurogenic claudication (Primary Dx); Bilateral leg weakness; Left thigh pain Start: 10-07-2024 End: 10-07-2024 Bamboo flowsheet Mony Brink [facility] Start: 10-07-2024 End: 10-07-2024 Bamboo flowsheet Mony Brink [facility] Start: 2024 End: 2024 Bamboo flowsheet Maddie Gregoriobley [facility] Start: 2024 End: 2024 Bamboo flowsheet Maddie Sandersy [facility] Start: 2024 End: 2024 ambulatory Maddie Latham [facility] [employer] Comment on above: Spinal stenosis, lum bar region with neurogenic claudication (Primary Dx); Bilateral leg weakness; Left thigh pain Start: 09-26-2024 End: 09-26-2024 ambulatory Maddie Sandersy [facility] Comment on above: Spinal stenosis, lum bar region with neurogenic claudication (Primary Dx); Bilateral leg weakness; Left thigh pain Start: 09-26-2024 End: 09-26-2024 Bamboo flowsheet Maddie Sandersy [facility] Start: 09-26-2024 End: 09-26-2024 Bamboo flowsheet Maddie Sandersy [facility] Start: 09-23-2024 End: 09-23-2024 ambulatory Maddie Sandersy [facility] [employer] Comment on above: Spinal stenosis, lum bar region with neurogenic claudication (Primary Dx); Bilateral leg weakness; Left thigh pain Start: 09-23-2024 End: 09-23-2024 Bamboo flowsheet Maddie Gregoriobley [employer] Start: 09-23-2024 End: 09-23-2024 Bamboo flowsheet Maddie Jgbley [facility] [facility] Start: 09-19-2024 End: 09-19-2024 Bamboo flowsheet Mony Brink [facility] [facility] Start: 09-19-2024 End: 09-19-2024 Bamboo flowsheet Mony Brink [facility] Start: 09-19-2024 End: 09-19-2024 ambulatory Mony Brink [facility] Comment on above: Spinal stenosis, lum bar region with neurogenic claudication (Primary Dx); Bilateral leg weakness; Left thigh pain Start: 09-18-2024 End: 09-18-2024 Bamboo flowsheet Kenia Castillo SECURITY INSTALLATION SALES TECHNICIAN Work Phone: [facility] Start: 09-18-2024 End: 09-18-2024 Bamboo flowsheet Kenia Castillo SECURITY INSTALLATION SALES TECHNICIAN Work Phone: [facility] Start: 09-18-2024 End: 09-18-2024 Office outpatient visit 25 minutes Kenia Castillo SECURITY INSTALLATION SALES TECHNICIAN Work Phone: [facility] Comment on above: Primary hypertension (Primary Dx); Type 2 diabetes mellitus with diabetic peripheral angiopathy without gangrene, without long-term current use of insulin (HCC); Benign prostatic hyperplasia with lower urinary tract symptoms, symptom details unspecified; Paroxysmal atrial fibrillation (HCC); Morbid (severe) obesity due to excess calories ([facility]) Start: 09-18-2024 End: 09-18-2024 ambulatory KENIA CASTILLO Not Available Start: 09-16-2024 End: 09-16-2024 ambulatory Mony Sharpe [employer] [facility] Comment on above: Spinal stenosis, lum bar region with neurogenic claudication (Primary Dx); Bilateral leg weakness; Left thigh pain Start: 09-16-2024 End: 09-16-2024 Bamboo flowsheet Mony Sharpe [employer] [facility] Start: 09-16-2024 End: 09-16-2024 Bamboo flowsheet Mony Sharpe [employer] [facility] Start: 09-09-2024 End: 09-09-2024 ambulatory Maddie Kelbley [employer] [facility] Comment on above: Spinal stenosis, lum bar region with neurogenic claudication (Primary Dx); Bilateral leg weakness Start: 09-09-2024 End: 09-09-2024 Bamboo flowsheet Maddie Kelbley [employer] [facility] Start: 09-09-2024 End: 09-09-2024 Bamboo flowsheet Maddie Kelbley [employer] [facility] Start: 09-03-2024 End: 09-03-2024 Bamboo flowsheet Arianna Lou DPM Work Phone: [facility] Start: 09-03-2024 End: 09-03-2024 Bamboo flowsheet Arianna Lou DPM Work Phone: [facility] Start: 09-03-2024 End: 09-03-2024 Patient encounter procedure Arianna Lou DPM Work Phone: [facility] Comment on above: Dermatophytosis of [...] 08-05-2024 End: 08-05-2024 ambulatory Ever Guillen MD Facility: [facility] Start: 07-23-2024 End: 07-24-2024 Follow-up encounter Kenia Castillo NP Work Phone: [facility] Start: 07-23-2024 End: 07-23-2024 Telephone encounter Bernie Adam MD Work Phone: [facility] Start: 07-22-2024 End: 07-22-2024 Orders Only Kenia Castillo NP Work Phone: [facility] Comment on above: Decreased renal func tion Start: 07-09-2024 End: 07-09-2024 Bamboo flowsheet Kenia Cordonayush SECURITY INSTALLATION SALES TECHNICIAN Work Phone: [facility] Start: 07-09-2024 End: 07-09-2024 Bamboo flowsheet Kenia Castillo SECURITY INSTALLATION SALES TECHNICIAN Work Phone: [facility] Start: 07-09-2024 End: 07-09-2024 Office outpatient visit 25 minutes Kenia Cordonayush SECURITY INSTALLATION SALES TECHNICIAN Work Phone: [facility] Comment on [...] Start: 07-09-2024 End: 07-09-2024 Telephone encounter Kenia Jonathan QURESHI Work Phone: [facility] Start: 07-09-2024 End: 07-09-2024 ambulatory KENIA CORDONJaredFITO Not Available Start: 07-08-2024 End: 07-09-2024 Refill Kenia Cordonayush SECURITY INSTALLATION SALES TECHNICIAN Work Phone: [facility] Comment on above: Paroxysmal atrial fi brillation (CMS/HCC) Start: 06-28-2024 End: 06-28-2024 Telephone encounter Kenia Jonathan QURESHI Work Phone: [facility] Start: 05-23-2024 End: 05-23-2024 Telephone encounter Bernie Adam MD Work Phone: [facility] Comment on above: Acute cough (Primary Dx) Start: 05-20-2024 End: 05-20-2024 Bamboo flowsheet Kenia Jonathan SECURITY INSTALLATION SALES TECHNICIAN Work Phone: [facility] Start: 05-20-2024 End: 05-20-2024 Bamboo flowsheet Kenia Castillo SECURITY INSTALLATION SALES TECHNICIAN Work Phone: [facility] Start: 05-20-2024 [...] 04-01-2024 End: 04-01-2024 ambulatory Ever Guillen MD [facility] Start: 03-22-2024 End: 03-22-2024 Refill Kenia Castillo SECURITY INSTALLATION SALES TECHNICIAN Work Phone: [facility] Comment on above: Primary hypertension (CMS/HCC) Start: 03-04-2024 End: 03-04-2024 ambulatory Ever Guillen MD Facility[facility] Start: 02-23-2024 End: 02-25-2024 ambulatory EJ FOSTER [facility] Start: 02-23-2024 End: 02-25-2024 Subsequent hospital visit by physician Ej Foster MD Work Phone: [facility] Comment on above: Paroxysmal atrial fi brillation (HCC) (Primary Dx); PAF (paroxysmal atrial fibrillation) (HCC) AF (paroxysmal atria l fibrillation) (HCC) Start: 02-20-2024 End: 02-20-2024 ambulatory KENIA CASTILLO Not Available Start: 02-20-2024 End: 02-20-2024 Bamboo flowsheet Kenia Castillo SECURITY INSTALLATION SALES TECHNICIAN Work Phone: [facility] Start: 02-20-2024 End: 02-20-2024 Bamboo flowsheet Kenia Castillo NP Work Phone: [facility] Start: 02-20-2024 End: 02-20-2024 Patient encounter procedure Kenia Castillo NP Work Phone: [facility] Comment on above: Encounter for [facility] ss examination (Primary Dx); Mixed hyperlipidemia [...] encounter status Kenia Castillo NP Work Phone: [facility] Start: 02-19-2024 End: 02-19-2024 Edilma Adam MD Work Phone: [facility] Comment on above: Type 2 diabetes magnolia itus with diabetic peripheral angiopathy without gangrene (CMS/HCC) Start: 02-05-2024 End: 02-07-[address] [facility] Start: 02-05-2024 End: 02-07-2024 Subsequent hospital visit by physician [address] Non-Invasive Cardiology Comment on above: Permanent [...] Start: 01-01-2024 End: 01-01-2024 Orders Only Jeannine Estevezpatrick SECURITY INSTALLATION SALES TECHNICIAN Work Phone: [facility] Comment on above: Bronchitis (Primary Dx) Start: 12-29-2023 End: 02-12-2024 Orders Only Jeannine Blanchardtrick SECURITY INSTALLATION SALES TECHNICIAN Work Phone: [facility] Comment on above: Bronchitis Start: 12-28-2023 End: 12-28-2023 Refill Bernie Adam MD Work Phone: [facility] Comment on above: Bronchitis Bronchitis (Primary Dx) Start: 12-26-2023 End: 12-26-2023 Bamboo flowsheet Jeannine Estevezpatrick SECURITY INSTALLATION SALES TECHNICIAN Work Phone: [facility] Start: 12-26-2023 End: 12-26-2023 Bamboo flowsheet Jeannine Alfonso Evangelista SECURITY INSTALLATION SALES TECHNICIAN Work Phone: [facility] Start: 12-26-2023 End: 12-26-2023 Office outpatient visit 15 minutes Jeannine Evangelista SECURITY INSTALLATION SALES TECHNICIAN Work Phone: [facility] Comment on above: Acute right otitis m edia (Primary Dx); Bronchitis Start: 12-26-2023 End: 12-26-2023 ambulatory JEANNINE EVANGELISTA Not Available Start: 12-21-2023 End: 12-21-2023 Telephone encounter Bernie Adam MD Work Phone: [facility] Start: 11-15-2023 End: 11-15-2023 Bamboo flowsheet Arianna Lou DPM Work Phone: [facility] Start: 11-15-2023 End: 11-15-2023 Bamboo flowsheet Arianna Lou DPM Work Phone: [facility] Start: 11-15-2023 End: 11-15-2023 Patient encounter procedure Arianna Lou DPM Work Phone: [facility] Comment on above: Dermatophytosis of n ail (Primary Dx); Dystrophic nail; Pain around toenail, right foot; Pain around toenail, left foot Start: 11-15-2023 End: 11-15-2023 ambulatory ARIANNA LOU Not Available Start: 10-23-2023 End: 10-24-2023 Refill Kenia Castillo SECURITY INSTALLATION SALES TECHNICIAN Work Phone: [facility] Comment on above: Paroxysmal atrial fi brillation (CMS/HCC) Start: 10-11-2023 End: 10-11-2023 Bamboo flowsheet Kenia Castillo SECURITY INSTALLATION SALES TECHNICIAN Work Phone: [facility] Start: 10-11-2023 End: 10-11-2023 Bamboo flowsheet Kenia Castillo SECURITY INSTALLATION SALES TECHNICIAN Work Phone: [facility] Start: 10-11-2023 End: 10-11-2023 Office outpatient visit 15 minutes Kenia Castillo SECURITY INSTALLATION SALES TECHNICIAN Work Phone: [facility] Comment on above: Dental abscess (Prim ora Dx) Start: 10-11-2023 End: 10-11-2023 ambulatory KENIA CASTILLO Not Available Start: 06-14-2023 End: 06-30-2023 ambulatory DAVID AWAD [facility] Start: 05-23-2023 End: 05-23-2023 ambulatory Trenton Redd Facility:[facility] Start: 05-23-2023 End: 05-23-2023 ambulatory AWAIS Evangelista Work Phone: [facility] Work Phone: Start: 05-23-2023 End: 05-23-2023 Patient encounter procedure SECURITY INSTALLATION SALES TECHNICIAN-Byron Evangelista Work Phone: [facility] [address] Work Phone: Start: 05-11-2023 End: 05-11-2023 ambulatory SECURITY INSTALLATION SALES TECHNICIAN-Byron Evangelista Work Phone: [facility] Work Phone: Start: 05-11-2023 End: 05-11-2023 Patient encounter procedure SECURITY INSTALLATION SALES TECHNICIAN-C Jeannine Evangelista Work Phone: [facility] [address] Work Phone: Start: 03-30-2023 Telephone encounter Alex lantigua PT Work Phone: [facility] Comment on above: re: [employer] for PT (He called noting he had just gotten verification per [employer] that if referring provider refers for therapy then PT would be covered. He gave a reference # [id number].) Start: 03-29-2023 Telephone encounter Alex lantigua PT [...] so.) Start: 03-28-2023 Telephone encounter Maddie Noa MALT LOADER [facility] Comment on above: re: PT today (Called and noted auth is still pending for PT and in need to cx today; I informed I will keep up-to-date come his next on 03/30.) Start: 03-23-2023 qcueheet Alex kinney PT Work Phone: [facility] Start: 03-23-2023 qcueheet Alex kinney PT Work Phone: [facility] Start: 03-23-2023 End: 03-23-2023 ambulatory Alex Rico PT Work Phone: [facility] Comment on above: Left thigh pain (Cassandra andrew Dx); Muscle strain of left thigh, subsequent encounter Start: 09-23-2020 End: 09-23-2020 Subsequent hospital visit by physician [facility] Echo Room [facility] Echocardiography Comment on above: Persistent atrial fi brillation (HCC); SOB (shortness of breath); Essential hypertension; Other specified diabetes mellitus with other specified complication, unspecified whether termite treater insulin use (HCC); Class 2 obesity with body mass index (BMI) of 36.0 to 36.9 in adult, unspecified obesity type, unspecified whether serious comorbidity present; Pain in both lower extremities Start: 03-10-2020 End: 03-12-2020 Subsequent hospital visit by physician [facility] Vascular Imaging Room [facility] Laboratory Comment on above: Controlled type [...] by physician Ej Foster Work Phone: [facility] ICU Comment on above: Arrived Start: 01-22-2020 End: 01-22-2020 Subsequent hospital visit by physician [facility] Echo Room [facility] Echocardiography Comment on above: Persistent atrial [...] End: 12-11-2019 Subsequent hospital visit by physician Adi Diaz Screening Schedule [facility] Covid Screening Comment on above: Arrived Procedures Date Procedure Procedure Detail Performing Clinician Start: 09-18-2024 Hemoglobin glycosylated a1c Kenia Castillo SECURITY INSTALLATION SALES TECHNICIAN Work Phone: Start: 05-20-2024 Hemoglobin glycosylated a1c Kenia Castillo SECURITY INSTALLATION SALES TECHNICIAN Work Phone: Start: 02-23-2024 End: 02-23-2024 Ecg routine ecg w/least 12 lds w/i&r Ej Foster MD Work Phone: Start: 02-23-2024 Ecg routine ecg w/le ast 12 lds w/i&r Ej Foster MD Work Phone: Start: 02-20-2024 Urine albumin quantitative Kenia Castillo SECURITY INSTALLATION SALES TECHNICIAN Work Phone: Start: 02-20-2024 Lipid panel Kenia rush SECURITY INSTALLATION SALES TECHNICIAN Work Phone: Start: 02-20-2024 Comprehensive metabo lic panel Kenia Castillo SECURITY INSTALLATION SALES TECHNICIAN Work Phone: Start: 02-05-2024 Echo tthrc r-t [...] above: Performed By: #### B [id number] #### [facility] [address] [place] [id number] Cheryl Srinivasan Performed By: #### C BC #### [facility] [address] [place], [place] [id number] Cheryl Srinivasan Plan of Treatment Date Care Activity Detail Author Start: 11-28-2028 DTaP/Tdap/Td vaccine (2 - Td or Tdap) DTaP/Tdap/Td vaccine (2 - Td or Tdap) [facility] Start: 11-28-2028 DTaP/Tdap/Td vaccine (2 - Td) DTaP/Tdap/Td vaccine (2 - Td) [place] Start: 02-19-2025 Medicare Annual Wellness (AWV) Medicare Annual Wellness (AWV) [facility] Start: 02-19-2025 Urine screening for protein Diabetes: Urine Protein Screening [facility] Start: 01-20-2025 End: 01-20-2025 Patient encounter procedure 01/20/2025 2:00 PM EST Office Visit [facility] [address] [place] [phone] Kenia Castillo NP [address] [place] [place] [address] [facility] Start: 01-08-2025 End: 01-08-[address] [facility] Start: 12-19-2024 Hemoglobin A1c measurement Diabetes: Hemoglobin A1C [facility] Start: 10-15-2024 End: 10-15-2024 ambulatory 10/15/2024 2:30 PM EDT Treatment [facility] [address] [place] [address] Maddie Latham, FLAVIO [facility] Start: 10-14-2024 Influenza vaccination Influenza Vaccine (#1) [facility] Start: 10-10-2024 End: 10-10-2024 ambulatory 10/10/2024 2:30 PM EDT Treatment [facility] [address] [facility] [address] [place] [address] Valerie Argueta PT [facility] Start: 10-07-2024 End: 10-07-2024 ambulatory [facility] Comment on above: Spinal stenosis, lumbar region with neur ogenic claudication (Primary Dx); Bilateral leg weakness; Left thigh pain Start: 2024 End: 2024 ambulatory [facility] Comment on above: Arrived Start: 09-30-2024 End: 09-30-2024 ambulatory 09/30/2024 2:30 PM EDT Treatment [facility] [address] [facility] [address] [place] [address] Maddie Latham, MALT LOADER [facility] Start: 09-26-2024 End: [...] [facility] [address] [facility] [address] [place] [address] Maddie Latham, MALT LOADER [facility] Start: 09-09-2024 End: 09-09-2024 ambulatory 09/09/2024 2:30 PM EDT Treatment [facility] [address] [facility] [address] [place] [address] Jgblealberto, Maddie, MALT LOADER Spinal stenosis, lumbar region with neurogenic claudication (Primary Dx); Bilateral leg weakness; Left thigh pain [facility] Comment on above: Spinal stenosis, lumbar region with neur ogenic claudication (Primary Dx); Bilateral leg weakness; Left thigh pain Start: 09-03-2024 End: 09-03-2024 Patient encounter procedure [facility] Comment on above: Arrived Start: 08-30-2024 End: 08-30-2024 ambulatory 08/30/2024 12:30 PM EDT Evaluation [facility] [address] [facility] [address] [place] [address] Valerie Argueta, PT [facility] Start: 08-19-2024 Hemoglobin A1c measurement Diabetes: Hemoglobin A1C [facility] Start: 07-22-2024 End: 07-22-2025 Comprehensive metabolic 2000 panel - Serum or Plasma Comprehensive metabolic panel Lab Routine Decreased renal function Expected: 07/22/2024 (Approximate), Expires: 07/22/2025 [facility] Work Phone: Comment on above: Expected: 07/22/2024 (Approximate), Expi res: 07/22/2025 Start: 07-09-2024 End: 07-09-2024 Professional / ancillary services management 07/09/2024 2:45 PM EDT Ancillary Procedure [facility] [address] [facility] [place] [id number] Localized edema [facility] Comment on [...] STAT Localized edema Expected: 07/09/2024, Expires: 07/09/2025 [facility] Comment on above: Expected: 07/09/2024, Expires: Start: 07-09-2024 End: 07-09-2025 XR Chest 2 Views XR chest 2 views Imaging STAT Localized edema Expected: 07/09/2024, Expires: 07/09/2025 [facility] Work Phone: Comment on above: Expected: 07/09/2024, Expires: Start: 06-27-2024 Screening for malignant neoplasm of colon Colorectal Cancer Screening [facility] Comment on above: Postponed from 1948 (Patient Refus ed) Start: 06-08-2024 Urine screening for protein Diabetes: Urine Protein Screening [facility] Start: 05-20-2024 Hemoglobin A1c measurement Diabetes: Hemoglobin A1C [facility] Start: 05-20-2024 End: 05-20-2024 Patient encounter procedure [facility] Comment on above: Arrived Start: 04-15-2024 End: 04-15-2024 Patient encounter procedure 04/15/2024 2:30 PM EST Procedure Visit [facility] [address] [place] [phone] Arianna Lou DPM [address] [place], [place] [phone] [facility] Start: 03-21-2024 End: 03-21-2024 Patient encounter procedure 03/21/2024 2:00 PM EST Office Visit [facility] Part [address] [address] Shalini Morrow PA-C [address] [place] [id number] [phone] week [facility] Comment on above: 4 week Start: 03-19-2024 End: 03-19-2024 Patient encounter procedure 03/19/2024 1:00 PM EST Procedure Visit [facility] [address] [place] [place] [address] Arianna Lou DPM [address] [facility] [place] [address] [facility] Start: 03-04-2024 End: 03-04-2024 Patient encounter procedure 03/04/2024 1:00 PM EST Office Visit [facility] [address] [facility] [address] [place] [address] Trenton Redd, PA [address] [place] [address] [facility] Start: 02-22-2024 End: 02-22-2024 Patient encounter procedure 02/22/2024 3:00 PM EST Office Visit [facility] [address] [place] [address] Shalini Morrow PA-C [address] [place] [address] 2 week [facility] Comment on above: 2 week Start: 02-22-2024 Annual Wellness Visit (Medicare) Annual Wellness Visit (Medicare) [facility] Start: 02-20-2024 End: 02-20-2024 Patient encounter procedure 02/20/2024 2:00 PM EST Office Visit [facility] [address] [place] [phone] Kenia Castillo NP [address] [place] [address] [facility] Start: 01-17-2024 End: 01-17-2024 Patient encounter procedure 01/17/2024 2:00 PM EST Office Visit [facility] [address] [place] [phone] Kenia Castillo, SECURITY INSTALLATION SALES TECHNICIAN [address] [place] [address] [facility] Start: 12-20-2023 Hemoglobin A1c measurement Diabetes: Hemoglobin A1C [facility] Start: 12-03-2023 Medicare Annual Wellness (AWV) Medicare Annual Wellness (AWV) [facility] Start: 11-15-2023 End: 11-15-2023 [facility] Comment on above: Arrived Start: 11-02-2023 Urine screening for protein Diabetes: Urine Protein Screening [facility] Start: 10-15-2023 Influenza vaccination Influenza Vaccine (#1) [facility] Start: 10-11-2023 End: 10-11-2023 Patient encounter procedure 10/11/2023 9:00 AM EDT Office Visit [facility] [address] [place] [phone] Kenia Castillo, SECURITY INSTALLATION SALES TECHNICIAN [address] [place] [address] Arrived [facility] Comment on above: Arrived Start: 06-14-2023 End: 06-14-2023 Patient encounter procedure 06/14/2023 1:30 PM EDT Procedure Visit [facility] [address] [place] [phone] Arianna Lou DPM [address] [place] [address] [facility] Start: 06-09-2023 End: 06-09-2023 Patient encounter procedure 06/09/2023 1:00 PM EDT Office Visit [facility] [address] [place] [phone] Kenia Castillo NP [address] [place] [place] [address] [facility] Start: 05-04-2023 GFR test (Diabetes, CKD 3-4, OR last GFR 15-59) GFR test (Diabetes, CKD 3-4, OR last GFR 15-59) [facility] Start: 04-17-2023 End: 04-17-2023 Patient encounter procedure 04/17/2023 1:30 PM EST Office Visit [facility] [address] [place] [phone] Trenton Redd PA [address] [place] [address] [facility] Start: 04-13-2023 End: 04-13-2023 ambulatory 04/13/2023 1:00 PM EST Treatment [facility] [address] [place] [address] Alex Rico, PT [address] [facility] [address] [place] [address] [facility] Start: 04-11-2023 End: 04-11-2023 ambulatory 04/11/2023 1:00 PM EST Treatment [facility] [address] [facility] [address] [place] [address] Maddie Latham, MALT LOADER [facility] Start: 04-06-2023 End: 04-06-2023 ambulatory 04/06/2023 2:00 PM EST Treatment [facility] [address] [facility] [address] [place] [address] Maddie Latham, MALT LOADER [facility] Start: 04-05-2023 End: 04-05-2023 ambulatory 04/05/2023 1:00 PM EST Treatment [facility] [address] [facility] [address] [place] [address] Valerie Argueta, PT [facility] Start: 04-04-2023 End: 04-04-2023 ambulatory 04/04/2023 1:00 PM EST Treatment [facility] [address] [facility] [address] [place] [address] Maddie Latham, MALT LOADER [facility] Start: 03-30-2023 End: 03-30-2023 ambulatory 03/30/2023 2:00 PM EST Treatment [facility] [address] [facility] [address] [place] [address] Maddie Latham, MALT LOADER [facility] Start: 03-28-2023 End: 03-28-2023 ambulatory 03/28/2023 1:30 PM EST Treatment [facility] [address] [facility] [address] [place] [address] Maddie Latham, MALT LOADER [facility] Start: 03-23-2023 End: 03-23-2023 ambulatory 03/23/2023 1:00 PM EST Evaluation [facility] [address] [facility] [address] [place] [address] Alex Rico, PT [address] [place] [address] Left thigh pain; Muscle strain of left thigh, subsequent encounter [facility] Comment on above: Left thigh pain; Muscle strain of left thigh, subsequent encounter Start: 01-31-2023 Hemoglobin A1c measurement Diabetes: Hemoglobin A1C [facility] Start: 01-09-2023 Annual Wellness Visit (Medicare) Annual Wellness Visit (Medicare) [facility] Start: 12-02-2022 Glaucoma screening Diabetes: Retinopathy Screening [facility] Start: 09-30-2021 End: 09-30-2021 Patient encounter procedure 09/30/2021 Office Visit Cardiology Ej Foster MD [address] [place] [address] [place] [phone] [facility] Start: 03-10-2021 Creatinine measurement [facility] [place] Start: 03-10-2021 HbA1c (Bld) [Mass fraction] A1C test (Diabetic or Prediabetic) [facility] [place] Start: 03-10-2021 Hemoglobin A1c measurement A1C test (Diabetic or Prediabetic) [facility] [employer] [facility] [employer] [facility] Start: 03-10-2021 Lipid panel [facility] Start: 03-10-2021 Potassium monitoring Potassium [email or web address] [place] Start: 01-21-2021 Creatinine measurement Creatinine monitoring [email or web address] [place] Start: 01-21-2021 HbA1c (Bld) [Mass fraction] A1C test (Diabetic or Prediabetic) [facility] [employer] [place] Start: 01-21-2021 Potassium monitoring Potassium monitoring [email or web address] [place] [place] Start: 10-14-2020 Influenza vaccination Flu vaccine (#1) [facility] Work Phone: Start: 09-16-2020 End: 09-16-2020 Office Visit 09/16/2020 Office Visit Cardiology Ej Foster MD [address] [place] [address] [place] [address] [facility] Start: 03-10-2020 End: 03-10-2020 Office Visit 03/10/2020 Office Visit Cardiology Ej Foster MD [address] [place] [address] [facility] Start: 02-21-2020 End: 02-21-2020 Office Visit 02/21/2020 Office Visit Cardiology Ej Foster MD [address] [place] [address] [facility] Start: 01-30-2020 End: 01-30-2020 Office Visit 01/30/2020 Office Visit Cardiology Ej Foster MD [address] [place] [address] [facility] Start: 12-11-2019 Annual Wellness Visit (AWV) Annual Wellness Visit (AWV) [place] Start: 10-15-2019 Influenza vaccination Flu vaccine (#1) [place] Start: 2013 Pneumococcal 65+ years Vaccine (1 of 1 - PPSV23) Pneumococcal 65+ years Vaccine (1 of 1 - PPSV23) [place] Start: 2013 Pneumococcal 65+ years Vaccine (2 of 2 - PPSV23) Pneumococcal 65+ years Vaccine (2 of 2 - PPSV23) [place] Start: 07-17-2012 Shingles Vaccine (2 of 3) Shingles Vaccine (2 of 3) [facility] Start: 1998 Screening for malignant neoplasm of colon Colon cancer screen colonoscopy [place], [place] Start: 1998 Shingles Vaccine (1 of 2) Shingles Vaccine (1 of 2) [place] Start: 1993 Screening for malignant neoplasm of colon [facility] Start: 1988 Lipid panel Lipid screen [place] Start: 10-04-1967 DTaP/Tdap/Td vaccine (1 - Tdap) DTaP/Tdap/Td vaccine (1 - Tdap) [place] Start: 1966 Diabetic microalbuminuria test Diabetic microalbuminuria test [place] Start: 1966 Glaucoma screening Diabetic retinal exam [facility] Start: 1966 Hepatitis C screening Hepatitis C screen [facility] Start: 1966 Urine screening for protein Diabetic Alb to Cr ratio (uACR) test [facility] Start: 1960 Depression Screen Depression Screen [facility] Start: 1958 Diabetic foot examination Diabetic foot exam [facility] Start: 1958 Diabetic retinal exam Diabetic retinal exam [place], [place] Start: 1958 Lipid panel Lipid screen [place], [place] Start: 1948 Creatinine measurement Creatinine monitoring [place], [place] Start: 1948 Hepatitis C screening Hepatitis C screen [place], [place] Start: 1950 Potassium monitoring Potassium monitoring [place], [place] Start: 1950 Screening for malignant neoplasm of colon [facility] End: 02-23-2024 Cardioversion external [facility] Comment on above: 1 Occurrences starting 02/23/2024 until 02/23/2024 End: 02-12-2020 Catheterization and angiography procedure details panel Diagnostic Cardiac [facility] Procedure Cardiac Cath Routine One Time for 1 Occurrences starting 02/12/2020 until 02/12/2020 [place] Comment on above: One Time for 1 Occurrences starting 01/15 until 02/12/2020 Continuous pulse oximetry Pulse oximetry, continuous Respiratory Care Routine Every 4hr until discontinued starting 02/12/2020 [place] Comment on above: Every 4hr until discontinued starting End: 12-11-2019 Covid-19 Ambulatory Covid-19 Ambulatory Lab Routine Once for 1 Occurrences starting 12/11/2019 until 12/11/2019 [place] Comment on above: Once for 1 Occurrences starting 12/11/19 20 until 12/11/2019 Covid-19 Ambulatory Covid-19 Amb ulatory Lab Routine 12/11/2019 2:27 PM EDT [facility] NORA EKG 12 Lead EKG 12 Lead ECG Routine 02/12/2020 8:26 AM MJ [place] End: 02-12-2020 End Tidal CO2 Continuous End Tidal CO2 Continuous Respiratory Care Routine Continuous until discontinued starting 02/12/2020 [place] Comment on above: Continuous until discontinued starting 1 End: 02-23-2024 [facility] cardiac [facility]3 day-14 day[facility]: One Time for 1 Occurrences starting 02/13 until 02/23/2024 End: 02-05-2024 Extended cardiac holter monitor (3 days-14 day) [facility] Comment on above: 1 Occurrences starting 02/05/2024 until 02/05/2024 End: 02-26-2024 Extended cardiac holter monitor (3 days-14 day) [facility] Comment on above: 1 Occurrences starting 02/26/2024 until 02/26/2024 End: 03-10-2020 HbA1c (Bld) [Mass fraction] Hemoglobin A1C Lab Routine Controlled type 2 diabetes mellitus with hyperglycemia, without long-term current use of insulin ([facility]) 1 Occurrences starting 03/10/2020 until 03/10/2020 [place] Comment on above: 1 Occurrences starting 03/10/2020 until 03/10/2020 HbA1c (Bld) [Mass fraction] Hemoglobin A1C Lab Routine Controlled type 2 diabetes mellitus with hyperglycemia, without long-term current use of insulin ([facility]) 03/10/2020 12:35 PM [place] End: 02-23-2024 INITIATE PACU OXYGEN THERAPY PROTOCOL Initiate PACU Oxygen Therapy Protocol Respiratory Care Routine Continuous until discontinued starting 02/23/2024 [facility] Comment on above: Continuous until discontinued starting 0 02/23/2024 Oxygen therapy [[facility] Data Set] Initiate Oxygen Therapy Protocol Respiratory Care Routine Daily until discontinued starting 02/12/2020 [place] Comment on above: Daily until discontinued starting 2019 End: 03-10-2020 VL LOWER EXTREMITY ARTERIAL SEGMENTAL PRESSURES W PPG VL LOWER EXTREMITY ARTERIAL SEGMENTAL PRESSURES W PPG Imaging STAT Pain in both lower extremities PVD (peripheral vascular disease) ([facility]) 1 Occurrences starting 03/10/2020 until 03/10/2020 [place] Comment on above: 1 Occurrences starting 03/10/2020 until 03/10/2020 VL LOWER EXTREMITY ARTERIAL SEGMENTAL PRESSURES W PPG VL LOWER EXTREMITY ARTERIAL SEGMENTAL PRESSURES W PPG Imaging STAT Pain in both lower extremities PVD (peripheral vascular disease) ([facility]) 03/10/2020 1:24 PM EST [place] Immunizations Immunization Date Immunization Notes Care Provider [facility] 11-21-2023 influenza, high dose seasonal, preservative-free Kenia Castillo SECURITY INSTALLATION SALES TECHNICIAN Work Phone: [facility] 11-21-2023 Pneumococcal Conjuga te PCV 20 Kenia Castillo SECURITY INSTALLATION SALES TECHNICIAN Work Phone: [facility] 11-21-2023 SARS-COV-2 (COVID-19 ) vaccine, mRNA, spike protein, LNP, PF, 50 mcg/0.5 mL Kenia Castillo SECURITY INSTALLATION SALES TECHNICIAN Work Phone: [facility] 11-21-2023 influenza virus vacc ine, unspecified formulation Valerie Argueta PT [facility] 12-05-2022 RSV, recombinant, pr otein subunit RSVpreF, adjuvant reconstitu, 120mcg/0.5mL, PF (Arexvy) Kenia Castillo SECURITY INSTALLATION SALES TECHNICIAN Work Phone: [facility] 12-02-2022 pneumococcal polysaccharide vaccine, 23 valent Alex Rico PT Work Phone: [facility] 11-01-2022 influenza, high dose seasonal, preservative-free Alex Rico PT Work Phone: [facility] 11-01-2022 influenza virus vacc ine, unspecified formulation Kenia Castillo SECURITY INSTALLATION SALES TECHNICIAN Work Phone: [facility] 11-01-2021 Influenza, Seasonal, Quadrivalent, Adjuvanted Alex Rico PT Work Phone: [facility] 11-01-2021 SARS-COV-2 (COVID-19 ) vaccine, mRNA, spike protein, LNP, bivalent, preservative free, 30 mcg/0.3 mL dose, mauro-sucrose formulation Alex Rico PT Work Phone: [facility] 11-01-2021 SARS-CoV-2, Unspecified Jamie Rico PT Work Phone: [facility] 10-30-2021 Influenza, High-dose Seasonal, Quadrivalent, Preservative Free Alex Rico PT Work Phone: [facility] 11-12-2020 Influenza, High-dose Seasonal, Quadrivalent, Preservative Free Alex Rico PT Work Phone: [facility] 11-11-2020 Influenza, High-dose Seasonal, Quadrivalent, Preservative Free Alex Rico PT Work Phone: [facility] 11-11-2020 Pfizer Purple Cap SARS-CoV-2 Vaccination Alex Rico PT Work Phone: [facility] 04-12-2020 Pfizer Purple Cap SARS-CoV-2 Vaccination Alex Rico PT Work Phone: [facility] 03-19-2020 Pfizer Purple Cap SARS-CoV-2 Vaccination Alex Rico PT Work Phone: [facility] 11-28-2019 influenza, injectabl e, quadrivalent, preservative free Alex Rico PT Work Phone: [facility] 11-28-2018 influenza, injectabl e, quadrivalent, preservative free Alex Rico PT Work Phone: [facility] 11-28-2018 tetanus toxoid, redu hiral diphtheria toxoid, and acellular pertussis vaccine, adsorbed Alex Rico PT Work Phone: [facility] 11-27-2018 influenza, high dose seasonal, preservative-free Alex Rico PT Work Phone: [facility] 11-27-2017 influenza, high dose seasonal, preservative-free Alex Rico PT Work Phone: [facility] 11-27-2017 Influenza, High-dose Seasonal, Quadrivalent, Preservative Free Alex Maryton PT Work Phone: [facility] 11-22-2016 influenza, injectabl e, quadrivalent, contains preservative Alex Trisha PT Work Phone: [facility] 11-22-2016 influenza, injectabl e, quadrivalent, preservative free Alex Maryton PT Work Phone: [facility] 07-29-2015 pneumococcal conjuga te vaccine, 13 valent Alex Rico PT Work Phone: [facility] 01-21-2015 influenza, seasonal, injectable, preservative free Alex Trisha PT Work Phone: [facility] 12-11-2013 influenza, injectabl e, quadrivalent, preservative free Alex Trisha PT Work Phone: [facility] 03-13-2013 influenza, seasonal, injectable Alex Maryton PT Work Phone: [facility] 03-13-2013 influenza, seasonal, injectable, preservative free Alex Maryton PT Work Phone: [facility] 03-13-2013 pneumococcal polysaccharide vaccine, 23 valent Alex Rico PT Work Phone: [facility] 05-22-2012 zoster vaccine, live Alex Rico PT Work Phone: [facility] 02-02-2012 influenza, seasonal, injectable Alex Maryton PT Work Phone: [facility] Payers Date Payer Category Payer Self-pay 2023 Medicare [id number] 2023 Medicare (Managed Care) [facility] MEDICARE [id number] 2023 Private Health Insurance [employer] [id number] 2023 Medicare [id number] 2023 Unknown [id number] [id number]. [id number] 1959 Medicare [id number]. [id number] 1959 Unknown [id number] 1948 Unknown [id number] 2.16840.1.460011.3.579.2. 593 1948 Unknown [id number] 2.16840.1.868325.3.579.2. 1286 1948 Unknown [id number] 2.840.1.319753.3.579.2. 128 1948 Unknown [id number] 2.16840.1.788393.3.579.2. 1286 1948 Unknown [id number] 2.16.840.1.111410.3.579.2. 173 1948 Unknown [id number] 2.16.840.1.228401.3.579.2. 173 1948 Unknown [id number] 2.16.840.1.857801.3.579.2. 173 1948 Unknown [id number] 2.16.840.1.286064.3.579.2. 173 1948 Unknown [id number] 2.16.840.1.599427.3.579.2. 1259 1948 Unknown [id number] 2.16.840.1.547271.3.579.2. 1259 1948 Unknown [id number] 2.16840.1.061304.3.579.2. 1259 1948 Unknown [id number] 2.16840.1.199138.3.579.2. 1259 1948 Unknown [id number] 2.16840.1.443458.3.579.2. 1259 1948 Unknown [id number] 2.16840.1.431690.3.579.2. 1259 1948 Unknown [id number] 2.16840.1.215671.3.579.2. 1259 1948 Unknown [id number] 2.16.840.1.717557.3.579.2. 1259 1948 Unknown [id number] 2.16.840.1.470417.3.579.2. 1259 1948 Unknown [id number] 2.16.840.1.436486.3.579.2. 1259 1948 Unknown [id number] 2.16.840.1.835199.3.579.2. 1259 1948 Unknown [id number] 2.16.840.1.046007.3.579.2. 1259 1948 Unknown [id number] 2.16.840.1.961502.3.579.2. 1259 1948 Unknown [id number] 2.16.840.1.210071.3.579.2. 1259 1948 Unknown [id number] 2.16.840.1.206724.3.579.2. 1259 1948 Unknown [id number] 2.16.840.1.334115.3.579.2. 125 1948 Unknown [id number] 2.16.840.1.611079.3.579.2. 9 1948 Unknown [id number] 2.16.840.1.017044.3.579.2. 1258 1948 Unknown [id number] 2.16840.1.145381.3.579.2. 1259 1948 Unknown [id number] 2.16.840.1.877416.3.579.2. 196 1948 Unknown [id number] 2.16.840.1.653237.3.579.2. 196 1948 Unknown [id number] 2.16840.1.619246.3.579.2. 196 1948 Unknown [id number] 2.16840.1.657434.3.579.2. Unknown [id number] 2.16840.1.665807.3.579.2. 531 Social History Date Type Detail [facility] [place] [place] Start: 1950 Sex Assigned At Not on file [place] Start: 01-22-2020 End: 08-02-2022 Tobacco smoking status [facility] Never smoker [place] Start: 01-22-2020 End: 08-02-2022 Tobacco use and exposure Never used [place] Start: 03-10-2020 End: 09-18-2024 Alcohol intake Current drinker of alcohol (finding) [place] Start: 02-12-2020 Alcohol Comment having had sin ce December [place] Exposure to SARS-CoV -2 (event) Not sure [place] Start: 09-16-2020 End: 12-02-2022 Alcohol intake [facility] Work Phone: Start: 12-02-2022 End: 03-14-2023 Tobacco use panel [facility] Start: 10-25-2022 Alcohol Comment drinks alcohol 2-3 times a week [facility] Start: 1950 Sex Assigned At Male F [facility] How often to you hav [...] 02-23-2024 Alcohol Comment occasional [facility] Clinical Notes 09-23-2020 to 09-18-2024 Kenia Castillo, SECURITY INSTALLATION SALES TECHNICIAN - 09/18/2024 1:00 PM Jeff Latham, MALT LOADER - 09/09/2024 2:30 PM DAVY RigginsM - 09/03/2024 1:00 PM Jayne Argueta, PT - 08/30/2024 12:30 PM EDT Note [...] was 321 pounds when he visited his set builder. Social History: Sleep: Reports disrupted sleep due [...] Morbid (severe) obesity due to excess calories (CMS-HCC) -Down 10 lbs since last visit. Keep up the great work! Did discuss seeing if we could get insurance to cover a different GLP1, he declines at this time would like to continue with lifestyle modifications. documented in this encounter [facility] 09-09-2024 History of Present illness Narrative [...] to be instructed in home exercise program. 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 Date: documented in this encounter [facility] 09-03-2024 History of Present illness Narrative Images from the original note were not included. Subjective Patient ID: Quentin Winters is a 73 y.o. male who presents for DM Foot Care (Established patient presents today for routine diabetic nail care. PCP: Kenia WOODRUFF 07/09/24, A1C: 6.3 (05/2024), BS: 99). HPI [...] Arianna Lou DPM documented in this encounter [facility] 08-30-2024 History of Present illness Narrative [...] TKA Subjective: bilateral hips / groin Pain: 06/22 Objective: PT Evaluation (08/30/2024) LUMBAR SPINE AROM: [...] to be instructed in home exercise program. Skilled Nursing Goals: To be met in 10 weeks [...] sign below. Date: documented in this encounter [facility] 08-15-2024 Telephone encounter Note He contacted and noted he is going on vacation and will contact once he returns to schedule PT. [facility] 08-15-2024 Miscellaneous Notes He contacted and noted he is going on vacation and will contact once he returns to schedule PT. CAMMIE requesting a call back to schedule PT Eval. documented in this encounter [facility] 08-15-2024 Telephone encounter Note CAMMIE requesting a call back to schedule PT Eval. [facility] 07-24-2024 Telephone encounter Note Patient called back and message was given. He understood and had no further questions. [facility] 07-24-2024 Miscellaneous Notes Patient called back [...] Kenia Castillo NP documented in this encounter [facility] 07-23-2024 Telephone encounter Note L/m letting pt know of message. [facility] 07-23-2024 Telephone encounter Note ----- Message from Kenia Castillo sent at 07/23/2024 6:13 PM EDT ----- Renal function back to baseline, he needs to avoid NSAIDS ----- Message ----- From: Interface, [facility] Results In Sent: 07/23/2024 6:24 AM EDT To: Kenia Castillo NP [facility] 07-23-2024 Telephone encounter Note Received as voicemail: Yewilian, my name is Quentin or Ching. My birthday is a [birth year]I am calling about the blood test that I had taken yesterday. Why did you probably find out about the results or what the dr. say about them? My phone number is [phone] would like to have a call back, please, thank you. [facility] 07-23-2024 Miscellaneous Notes Received as voicemail: Yewilian, my name is Quentin or Ching. My birthday is a [birth year]I am calling about the blood test that I had taken yesterday. Why did you probably find out about the results or what the dr. say about them? My phone number is [phone] would like to have a call back, please, thank you. documented in this encounter [facility] 07-09-2024 Telephone encounter Note Zepbound sent to pharmacy, most likely needs PA, please start, will need 4 week follow up if approved [facility] 07-09-2024 Miscellaneous Notes Zepbound sent to pharmacy, most likely needs PA, please start, will need 4 week follow up if approved documented in this encounter [facility] 07-09-2024 History of Present illness Narrative [...] been managing his restless legs syndrome with dbet-ysk-kfzwhlk medication, taking up to nine tablets at [...] in the morning. documented in this encounter [facility] 06-28-2024 Telephone encounter Note Gave number he will call and schedule [facility] 06-28-2024 Miscellaneous Notes Gave number he will call and schedule Open referral for sleep medicine, did he schedule with Dr. Plascencia in [place]? documented in this encounter [facility] 06-28-2024 Telephone encounter Note Open referral for sleep medicine, did he schedule with Dr. Plascencia in [place]? [facility] 05-23-2024 Miscellaneous Notes Pt is requesting a cough medicine but does not want the little egg looking. He is not better from his visit, the cough is keeping him up and he needs something to [facility] [place] documented in this encounter [facility] 05-23-2024 Telephone encounter Note Pt is requesting a cough medicine but does not want the little egg looking. He is not better from his visit, the cough is keeping him up and he needs something to get rid of it. [facility] [place] [facility] 05-20-2024 History of Present illness Narrative Images from the original note were not included. Zaina iWnters is a 73 y.o. male presents with [...] cookies lately. Supplemental Information He went to set builder on Monday, who said he looked pretty [...] Analgesics OTC prn. documented in this encounter [facility] 02-23-2024 History of Present illness Narrative [...] included. Mr. Winters Date of : 1950 [id number] Procedure: Cardioversion Pre-operative Diagnosis: Persistent atrial fibrillation, symptomatic Post-operative Diagnosis: Successful cardioversion to NSR with 300J biphasic Anesthesia: General Anesthesia. Provided by our anesthesia team. Procedure: The procedure was done in the [facility]. Benefits, risks and alternatives were explained to the patient and he agreed to proceed. Informed consent obtained. A separate informed consent obtained by our anesthesia team. Timeout obtained by the [facility] nurse. The defibrillator pads were attached in [...] other cardiac medications. Ej Foster MD, MS, F.A.C.[facility], [place] [address] , documented in this encounter [facility] 02-23-2024 Hospital Discharge instructions Jannet Martinez RN [...] doctor prescribes. Do not take any vitamins, oebc-dpf-sljtrny medicines, or herbal products without talking to [...] or uneven pulse. After calling 911, the thiokol operator may tell you to chew 1 [...] Where can you learn more? Go to [email or web address] and sign in to your Chatalog account. Enter A617 in the Search Health Information box to learn more about Electrical Cardioversion: What to Expect at Home. If you do not have an account, please click on the Sign Up Now link. [employer]. Care instructions adapted under license by [employer]. This care instruction is for use with your licensed healthcare professional. If you have questions about a medical condition or this instruction, always ask your healthcare professional. [employer] disclaims any warranty or liability for your use of this information. Content Version: 10.6.575408; Current as of: April 04, 2014 documented in this encounter [facility] 02-20-2024 History of Present illness Narrative Images from the original note were not included. Zaina Winters is a 73 y.o. male presents with chief complaint of Medicare Annual Wellness Visit Subsequent HPI: HPI Getting an ablation on , having a procedure done by pain management soon sees pain management at [place]. Send results to Dr. Mata at [facility] Has an appointment with phil tracey in March in [place]. Not using cpap tried different mask couldn't [...] Do not crush, chew, or split. HYDROcodone-acetaminophen (Lucinda) 5-325 MG tablet 1 tablet, 2 times [...] independence. Living will and durable power of associate attorney reviewed. Updated patient problem list and [...] after eating. [employer] HOB. Paroxysmal atrial fibrillation ([facility]/HCC) -On eliquis, scheduled for ablation later this week POOL (obstructive sleep apnea) - Ambulatory referral to Sleep Medicine; Future -The patient was counseled on the risks of stroke, Ml, and sudden with POOL, along with the need for compliance with CPAP/BiPAP treatment. Will refer to Sleep Medicine for further evaluation. Peripheral edema -Encouraged compression stockings to BLE PVD (peripheral vascular disease) ([facility]) -Encouraged compression stockings to BLE Lumbar radiculopathy -Followed by pain management Restless legs syndrome -Stable Type 2 diabetes mellitus with diabetic peripheral angiopathy without gangrene, without long-term current use of insulin ([facility]) Insomnia, unspecified type -Stable Morbid (severe) obesity due to excess calories ([facility]) Colon cancer screening declined Screening PSA (prostate specific antigen) - PSA; Future Benign prostatic hyperplasia with lower urinary tract symptoms, symptom details unspecified -Stable Body mass index (BMI) 40.0-44.9, adult ([facility]) documented in this encounter [facility] 01-01-2024 Telephone encounter Note Sent prescription. [facility] 01-01-2024 Miscellaneous Notes Sent prescription. Informed patient that [facility] and he states I told her those don't work for me He wants you to send something stronger. [facility]ent to [facility] Addended by: RHONA HERRERA on: 12/29/2023 10:45 AM Modules accepted: [facility] [place] I believe the tessalon perles were sent. Patient was seen on 12/25 and has been taking otc cough syrup and it is not helping at all. He is requesting a prescription for cough syrup sent to [facility] in [place]. Ty documented in this encounter [facility] 01-01-2024 History of Present illness Narrative Prescription sent documented in this encounter [facility] 12-29-2023 Telephone encounter Note I sent in a few days of steroids to help with cough [facility] 12-29-2023 Miscellaneous Notes I sent in a few days of steroids to help with cough Can something else be sent in for pt to help with cough other than tesslon perles? Please contact pt with response. [facility] [place] documented in this encounter [facility] 12-29-2023 Telephone encounter Note Can something else be sent in for pt to help with cough other than tesslon perles? Please contact pt with response. [facility] [place] [facility] 12-29-2023 Telephone encounter Note Informed patient that [facility] and he states I told her those don't work for me He wants you to send something stronger. [facility] 12-29-2023 Telephone encounter Note [facility]ent to [facility] 12-29-2023 History of Present illness Narrative Prescription sent documented in this encounter [facility] 12-29-2023 Note Addended by: Mirna HERRERA on: 12/29/2023 10:45 AM Modules accepted: Orders [facility] 12-29-2023 Telephone encounter Note [facility] resend to [facility] [place]. I believe the tessalon perles were sent. [facility] 12-28-2023 History of Present illness Narrative Prescription sent documented in this encounter [facility] 12-28-2023 Telephone encounter Note Patient was seen on 12/25 and has been taking otc cough syrup and it is not helping at all. He is requesting a prescription for cough syrup sent to [facility] in [place]. Ty [facility] 11-12-2024 History of Present illness Narrative Images from [...] mg, Oral, 3 times daily PRN HYDROcodone-acetaminophen (Lucinda) 5-325 MG tablet 1 tablet, Oral, 2 [...] if symptoms worsen documented in this encounter [facility] 12-21-2023 Telephone encounter Note Quentin called - was in for ear infection etc last week . Now he hs it - he's asking if you would just send in what you gave her . [facility] 12-21-2023 Miscellaneous Notes Quentin called - was in for ear infection etc last week . Now he hs it - he's asking if you would just send in what you gave her . documented in this encounter [facility] 11-15-2023 History of Present illness Narrative Images from the original note were not included. Subjective Patient ID: Quentin Winters is a 73 y.o. male who presents for Toenail Care (PCP: Kenia Castillo LV 10/11/23, A1C: 6.2, BS: 107). HPI HPI [...] day as needed, Disp: , Rfl: HYDROcodone-acetaminophen (Lucinda) 5-325 MG tablet, Take 1 tablet by [...] Arianna Lou DPM documented in this encounter [facility] 11-15-2023 Instructions Arianna Lou DPM - 11/15/2023 1:00 PM EDT As noted documented in this encounter [facility] 10-23-2023 Telephone encounter Note Patient is calling for refills. He is asking for 90 day supply sent to [facility] 10-23-2023 Miscellaneous Notes Patient is calling for refills. He is asking for 90 day supply sent to [facility] documented in this encounter [facility] 10-11-2023 History of Present illness Narrative Images from the original note were not included. Zaina Winters is a 73 y.o. male presents with chief complaint of Establish Care HPI: Patient fell and hit his face 8 months ago and banged his teeth. So he went to [facility] about 6-8 months ago and they told [...] mg, Oral, 3 times daily PRN HYDROcodone-acetaminophen (Lucinda) 5-325 MG tablet 1 tablet, Oral, 2 [...] (CMS/HCC) 12/17/2019 Peripheral edema 11/28/2018 Polio 07/29/2015 [id number] condition 04/27/2020 Primary osteoarthritis involving multiple joints 10/04/2022 Psoriasis ([facility]) 06/26/2017 PVD (peripheral vascular disease) ([facility]) 08/30/2021 Restless legs Restless legs [...] gets surgery date. documented in this encounter [facility] 03-30-2023 Telephone encounter Note 2/21 @ 1:00 pm . [facility] 03-30-2023 Miscellaneous Notes 04/05 @ 1:00 pm . So that reference # does nothing? His eval was 2/8, and is it noted per [facility] to continue, auth is needed? Would it be ok to schedule? documented in this encounter [facility] 03-30-2023 Telephone encounter Note So that reference # does nothing? His eval was 28, and is it noted per [facility] to continue, auth is needed? [facility] 03-30-2023 Telephone encounter Note Would it be ok to schedule? [facility] 03-29-2023 Telephone encounter Note Pt cx PT out. [facility] 03-29-2023 Miscellaneous Notes Pt cx PT out. documented in this encounter [facility] 09-20-2021 Note [id number]#1.00[facility] 09-20-2021 Note [id number]#1.00[facility] 09-18-2021 Note Education Materials POST OPERATIVE [...] #8 follow up in office with physician customer relations assistant Justo Redd as scheduled #9 [facility] [...] to the nearest hospital's emergency services department. [facility] 09-18-2021 Note [facility] 2SOUT Clinical Discharge Summary PERSON INFORMATION Name ZAINA WINTERS Age 70 Years 1950 Sex MALE Language Gambian PCP Tonja SECURITY INSTALLATION SALES TECHNICIANEsther, Jeannine Alfonso Marital Status Med Service Observation Acct# Arrival 09/17/2021 08:03:00 Visit Reason SURGERY-RIGHT TOTAL KNEE (GABRIELA) Acuity LOS 000 26:09 Address: [address] [place] [address] Comment: PROVIDER INFORMATION VITALS INFORMATION Vital Sign [...] range between ( 1.3 and 2.9 ) Durham Abs#: 1.3 x103/mcL -- Normal range between ( 0.0 and 0.8 ) Auto Baso %: 0.0 % -- Normal range between ( 0.2 and 2.0 ) Auto Durham %: 9 % -- Normal range between [...] Follow up: With: Address: When: Trenton Redd [address] [place] [address], [address] [place] [id number] [employer] (1) 10/01/2021 11:00 AM DIAGNOSIS Acute pain of right knee Comment: PHYS DOC NOTES [facility] 03-04-2021 Note [id number]#1.00[facility] 03-04-2021 Note [id number]#1.00[facility] 03-04-2021 Note [id number]#1.00[facility] 03-03-2021 Note Education Materials POST OPERATIVE [...] #8 follow up in office with physician customer relations assistant Justo Redd as scheduled #9 [facility] [...] to the nearest hospital's emergency services department. [facility] 03-03-2021 Note [facility] Clinical Discharge Summary PERSON INFORMATION Name ZAINA WINTERS Age 70 Years 1950 Sex MALE Language Gambian PCP Tonja ERNANDEZ, Jeannien Alfonso Marital Status Med Service Observation Acct# Arrival 03/02/2021 05:52:00 Visit Reason SURGERY - LEFT TOTAL KNEE POSSIBLE STEMS AND AUGS - NEX GEN TIBIA Acuity LOS 000 26:57 Address: [address] [place] [address] Comment: PROVIDER INFORMATION VITALS INFORMATION Vital Sign [...] range between ( 1.3 and 2.9 ) Durham Abs#: 1.9 x103/mcL -- Normal range between ( 0.0 and 0.8 ) Auto Baso %: 0.0 % -- Normal range between ( 0.2 and 2.0 ) Auto [place] %: 10 % -- Normal range between [...] range between ( 74 and 118 ) [facility] Lab Order 03/03/2021 [...] Follow up: With: Address: When: Trenton Redd [address] [place] [address] [address] [place] [address] Business (1) 03/15/2021 10:30 AM With: Address: When: Jeannine Evangelista [address] [place], [place] [id number] Business (1) DIAGNOSIS Aftercare following left knee joint rep (more content not included)... [facility] 09-23-2020 History of Present illness Narrative Instructed on policies and procedures. documented in this encounter [facility] Phone: Evaluation note Diagnosis Persistent atrial fibrillation (HCC) Atrial fibrillation SOB (shortness of breath) Shortness of breath Essential hypertension Unspecified essential hypertension Other specified diabetes mellitus with other specified complication, unspecified whether termite treater insulin use (HCC) Class 2 obesity with body mass index (BMI) of 36.0 to 36.9 in adult, unspecified obesity type, unspecified whether serious comorbidity present Pain in both lower extremities documented in this encounter [facility] Phone: evaluation note* Diagnosis Left thigh pain- Primary Pain in soft tissues of limb Muscle strain of left thigh, subsequent encounter [facility] assessment information [facility] Work Phone: Evaluation note* Diagnosis Dermatophytosis of nail- Primary Dystrophic nail Other specified disease of nail Pain around toenail, right foot Pain around toenail, left foot [facility]* Diagnosis Acute right otitis media- Primary Bronchitis Bronchitis, not specified as acute or chronic documented [facility]* Diagnosis Bronchitis Bronchitis, not specified as acute or chronic documented [facility]* Diagnosis Bronchitis- Primary Bronchitis, not specified as acute or chronic documented [facility]* Diagnosis Bronchitis Bronchitis, not specified as acute or chronic documented [facility]* Diagnosis Bronchitis- Primary Bronchitis, not specified as acute or chronic documented [facility]* Diagnosis Dental abscess- Primary Periapical abscess without sinus [facility]* Diagnosis Restless legs syndrome Restless legs syndrome (RLS) documented [facility]* Diagnosis Paroxysmal atrial fibrillation (CMS/HCC) Atrial fibrillation [facility]* Diagnosis Permanent atrial fibrillation (HCC) Atrial fibrillation Chronic anticoagulation Encounter for long-term (current) use of anticoagulants Essential hypertension Unspecified essential hypertension Type 2 diabetes mellitus with diabetic nephropathy, without long-term current use of insulin (HCC) History of COVID-19 Obesity, Class III, BMI 40-49.9 (morbid obesity) Morbid obesity documented in this encounter [facility]* Diagnosis Permanent atrial fibrillation (HCC) Atrial fibrillation Chronic anticoagulation Encounter for long-term (current) use of anticoagulants Essential hypertension Unspecified essential hypertension Type 2 diabetes mellitus with diabetic nephropathy, without long-term current use of insulin (HCC) History of COVID-19 Obesity, Class III, BMI 40-49.9 (morbid obesity) Morbid obesity [facility]* Diagnosis Acute cough- Primary [facility]* Diagnosis Type 2 diabetes mellitus with diabetic peripheral angiopathy without gangrene (CMS/HCC) [facility]* Diagnosis Paroxysmal atrial fibrillation (HCC)- Primary Atrial fibrillation PAF (paroxysmal atrial fibrillation) ([facility]) Atrial fibrillation documented in this encounter [facility] note* Diagnosis Encounter for wellness examination- Primary Mixed hyperlipidemia (CMS/HCC) Mixed hyperlipidemia Primary hypertension (CMS/HCC) Unspecified essential hypertension Type 2 diabetes mellitus with other specified complication, without long-term current use of insulin ([facility]) Vitamin D deficiency 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 Gastroesophageal reflux disease without esophagitis Esophageal reflux Paroxysmal atrial fibrillation (CMS/HCC) Atrial fibrillation POOL (obstructive sleep apnea) Obstructive sleep apnea (adult) (pediatric) Peripheral edema Edema PVD (peripheral vascular disease) ([facility]/HCC) Unspecified peripheral vascular disease Lumbar radiculopathy Thoracic or lumbosacral neuritis or radiculitis, unspecified Restless legs syndrome Restless legs syndrome (RLS) GERD without esophagitis Esophageal reflux Type 2 diabetes mellitus with diabetic peripheral angiopathy without gangrene, without long-term current use of insulin ([facility]/HCC) Insomnia, unspecified type Morbid (severe) obesity due to excess calories ([facility]) Colon cancer screening declined Screening PSA (prostate specific antigen) Special screening for malignant neoplasm of prostate Benign prostatic hyperplasia with lower urinary tract symptoms, symptom details unspecified Body mass index (BMI) 40.0-44.9, adult ([facility]) [facility]* Diagnosis AF (paroxysmal atrial fibrillation) (HCC) Atrial fibrillation documented in this encounter [facility] note* Diagnosis Primary hypertension (CMS/[facility]) Unspecified essential hypertension [facility]* Diagnosis Type 2 diabetes mellitus without complication, without long-term current use of insulin- Primary Acute bacterial conjunctivitis of both eyes Non-recurrent acute suppurative otitis media of left ear without spontaneous rupture of tympanic membrane documented [facility] this encounter [facility]* Diagnosis Acute cough- Primary documented in this encounter [facility]* Diagnosis Paroxysmal atrial fibrillation (CMS/HCC) Atrial fibrillation documented in this encounter [facility]* Diagnosis Localized edema- Primary Edema [...] foot without tophus documented in this encounter [facility]* Diagnosis Decreased renal function documented in this encounter [facility]* Diagnosis Spinal stenosis, lumbar region with neurogenic claudication- Primary Bilateral leg weakness Muscle weakness (generalized) documented in this encounter [facility]* Diagnosis Dermatophytosis of nail- Primary Dystrophic nail Other specified disease of nail Pain around toenail, right foot Pain around toenail, left foot documented in this encounter [facility]* Diagnosis Spinal stenosis, lumbar region with neurogenic claudication- Primary Bilateral leg weakness Muscle weakness (generalized) documented in this encounter [facility]* Diagnosis Spinal stenosis, lumbar region with neurogenic claudication- Primary Bilateral leg weakness Muscle weakness (generalized) Left thigh pain Pain in soft tissues of limb documented in this encounter [facility]* Diagnosis Primary hypertension- Primary Unspecified essential hypertension Type 2 diabetes mellitus with diabetic peripheral angiopathy without gangrene, without long-term current use of insulin (HCC) Benign prostatic hyperplasia with lower urinary tract symptoms, symptom details unspecified Paroxysmal atrial fibrillation (HCC) Atrial fibrillation Morbid (severe) obesity due to excess calories ([facility]) documented in this encounter [facility]* Diagnosis Spinal stenosis, lumbar region with neurogenic claudication- Primary Bilateral leg weakness Muscle weakness (generalized) Left thigh pain Pain in soft tissues of limb documented in this encounter [facility]* Diagnosis Spinal stenosis, lumbar region with neurogenic claudication- Primary Bilateral leg weakness Muscle weakness (generalized) Left thigh pain Pain in soft tissues of limb documented in this encounter [facility]* Diagnosis Spinal stenosis, lumbar region with neurogenic claudication- Primary Bilateral leg weakness Muscle weakness (generalized) Left thigh pain Pain in soft tissues of limb documented in this encounter [facility]* Diagnosis Spinal stenosis, lumbar region with neurogenic claudication- Primary Bilateral leg weakness Muscle weakness (generalized) Left thigh pain Pain in soft tissues of limb documented in this encounter [facility] HealthcareReason for visit Narrative* Consultation (Routine) - Pending Review Specialty Diagnoses / Procedures Referred By Contac t Referred To Contact Physical Therapy Diagnoses Left thigh pain Muscle strain of left thigh, subsequent encounter Procedures LA OFFICE/OUTPATIENT NEW HIGH MDM 60 MINUTES Trenton Redd PA [address] [facility] [address] [place] [address] Alex Rico, PT [address] [facility] [address] [place] [address] Referral ID Status Reason Start Date Expiration Date Visits Requested Visits Authorized [id number] Pending Review Consult and Treat 03/23/2023 03/09/2024 1 1 [facility]Reason for [facility] Narrative* Rehabilitation - Outpatient (Routine) - Pending Review Specialty Diagnoses / Procedures Referred By Jamal t Referred To Contact Physical Therapy Diagnoses Spinal stenosis, lumbar region with neurogenic claudication Bilateral Leg Weakness Procedures LA PHYSICAL THERAPY EVALUATION LOW COMPLEX 20 MINS LA OFFICE/OUTPATIENT NEW HIGH MDM 60 MINUTES Alley Richard NP [address] [place] [address] Phone: tel: fax: [facility] [address] [facility] [address] [place] [address] Phone: tel: fax: Referral ID Status Reason Start Date Expiration Date V isits Requested Visits Authorized [id number] Pending Review 08/30/2024 02/10/2025 2 2 [facility] HealthcareReason for visit Narrative* Rehabilitation - Outpatient (Routine) - Authorized Specialty Diagnoses / Procedures Referred By Contac t Referred To Contact Physical Therapy Diagnoses Spinal stenosis, lumbar region with neurogenic claudication Bilateral Leg Weakness Procedures LA PHYSICAL THERAPY EVALUATION LOW COMPLEX 20 MINS LA OFFICE/OUTPATIENT NEW HIGH MDM 60 MINUTES Alley Richard NP [address] [place] [address] Phone: tel: fax: [facility] [address] [place] [address] [place] [address] Phone: tel: fax: Referral ID Status Reason Start Date Expiration Date V isits Requested Visits Authorized [id number] Authorized 08/30/2024 10/31/2024 12 12 [facility] Summary Purpose Family History No [...] mellitus with other specified complication, unspecified whether termite treater insulin use (HCC) Class 2 obesity with body mass index (BMI) of 36.0 to 36.9 in adult, unspecified obesity type, unspecified whether serious comorbidity present Procedures ECHO Complete 2D W Doppler W Color Ej Foster MD [address] [place] [address] [place] [address] [facility] Echo [address] [place], [place] [address] Status Reason Specialty Diagnoses / Procedures Referre d By Contact Referred To Contact Closed Radiology Diagnoses Pain in both lower extremities PVD (peripheral vascular disease) (HCC) Procedures VL LOWER EXTREMITY ARTERIAL SEGMENTAL PRESSURES W PPG Ej Foster MD [address] [place] [address] [place] [address] Status Reason Specialty Diagnoses / Procedures Referre d By Contact Referred To Contact Closed Cardiology Diagnoses Persistent atrial fibrillation (HCC) SOB (shortness of breath) Essential hypertension Other specified diabetes mellitus with other specified complication, unspecified whether termite treater insulin use (HCC) Class 2 obesity with body mass index (BMI) of 36.0 to 36.9 in adult, unspecified obesity type, unspecified whether serious comorbidity present Pain in both lower extremities Procedures Echo 2D w doppler w color complete Ej Foster MD [address] [place] [address] [place] [address] Specialty Diagnoses / Procedures Referred By Contac t Referred To Contact Diagnoses Permanent atrial fibrillation (HCC) Chronic anticoagulation Essential hypertension Type 2 diabetes mellitus with diabetic nephropathy, without long-term current use of insulin (HCC) History of COVID-19 Obesity, Class III, BMI 40-49.9 (morbid obesity) Procedures Echo (TTE) complete (PRN contrast/bubble/strain/3D) LA ECHO TTHRC R-T 2D W/WOM-MODE COMPL SPEC&COLR D LA TTE W OR WO FOL WCON,Shalini Sullivan PA-C [address] [place] [address] Referral ID Status Reason Start Date Expiration Date V isits Requested Visits Authorized [id number] Not Required - RTA 02/05/2024 02/04/2025 1 1 Specialty Diagnoses / Procedures Referred By Contac t Referred To Contact Diagnoses Permanent atrial fibrillation (HCC) Chronic anticoagulation Essential hypertension Type 2 diabetes mellitus with diabetic nephropathy, without long-term current use of insulin (HCC) History of COVID-19 Obesity, Class III, BMI 40-49.9 (morbid obesity) Procedures Extended cardiac holter monitor (3 days-14 day) LA EXTERNAL ECG REC>48HR<7D REVIEW & INTERPRETATION LA EXTERNAL ECG REC>48HR<7D RECORDING LA EXTERNAL ECG REC>7D<15D RECORDING LA EXTERNAL ECG REC>7D<15D REVIEW & INTERPRETATION Shalini Morrow PA-C [address] [place] [address] Referral ID Status Reason Start Date Expiration Date V isits Requested Visits Authorized [id number] Not Required - RTA 02/05/2024 02/04/2025 1 1 Specialty Diagnoses / Procedures Referred By Contac t Referred To Contact Cardiology Diagnoses PAF (paroxysmal atrial fibrillation) ([facility]) Procedures Cardioversion external HC CARDIOVERSION Ej Foster MD [address] [place] [address] [place] [address] Referral ID Status Reason Start Date Expiration Date V isits Requested Visits Authorized [id number] Not Required - RTA 02/22/2024 02/21/2025 1 1 Specialty Diagnoses / Procedures Referred By Contac t Referred To Contact Cardiology Diagnoses AF (paroxysmal atrial fibrillation) (HCC) Procedures Extended cardiac holter monitor (3 days-14 day) LA EXTERNAL ECG REC>48HR<7D REVIEW & INTERPRETATION LA EXTERNAL ECG REC>48HR<7D RECORDING LA EXTERNAL ECG REC>7D<15D RECORDING LA EXTERNAL ECG REC>7D<15D REVIEW & INTERPRETATION Ej Foster MD [address] [place] [address] [place] [address] Referral ID Status Reason Start Date Expiration Date Visits Re quested Visits Authorized [id number] Closed 02/26/2024 02/25/2025 1 1 History of Present Illness * Nini Todd - 01/22/2020 11:30 AM EST Explained policies and procedures of an echocardiogram/Doppler study. documented in this encounter* Arianna Allen RN - 02/12/2020 9:42 AM EST Agricultural Mechanic reviewed discharge instructions with patient and spouse. Both verbalized understanding. Denies questions. Copy of discharge instructions given to patient. documented in this encounter Assessments Diagnosis Persistent atrial fibrillation (HCC) Atrial fibrillation Essential hypertension Unspecified essential hypertension SOB (shortness of breath) Shortness of breath Fluid retention Other fluid overload Other specified diabetes mellitus with other specified complication, unspecified whether termite treater insulin use (HCC) Class 2 obesity with body mass index (BMI) of 36.0 to 36.9 in adult, unspecified obesity type, unspecified whether serious comorbidity present Diagnosis Persistent atrial fibrillation (HCC) Atrial fibrillation Essential hypertension Unspecified essential hypertension SOB (shortness of breath) Shortness of breath Fluid retention Other fluid overload Other specified diabetes mellitus with other specified complication, unspecified whether termite treater insulin use (HCC) Class 2 obesity with [...] both lower extremities PVD (peripheral vascular disease) ([facility]) Peripheral vascular disease, unspecified Discharge Instructions * [...] doctor prescribes. Do not take any vitamins, tzzj-tij-dlefwmu medicines, or herbal products without talking to [...] or uneven pulse. After calling 911, the thiokol operator may tell you to chew 1 [...] Where can you learn more? Go to [email or web address] and sign in to your [employer] account. Enter A617 in the Search Health Information box to learn more about Electrical Cardioversion: What to Expect at Home. If you do not have an account, please click on the Sign Up Now link. [employer]. Care instructions adapted under license by [employer]. This care instruction is for use with your licensed healthcare professional. If you have questions about amedical condition or this instruction, always ask your healthcare professional. [employer] disclaims any warranty or liability for your use of this information. Content Version: [id number]; Current as of: April 04, 2014 documented [...] content) DATE CREATED AUTHOR 12/21/2019 [facility] DATE CREATED AUTHOR AUTHOR'S ORGANIZ ATION 06/12/2021 [facility]ical Specialist DATE CREATED AUTHOR AUTHOR'S ORGANIZ ATION 10/25/2021 [facility] DATE CREATED AUTHOR AUTHOR'S ORGANIZ ATION 05/27/2023 [facility] DATE CREATED AUTHOR AUTHOR'S ORGANIZ ATION 07/02/2023 [facility] DATE CREATED AUTHOR AUTHOR'S ORGANIZ ATION 02/28/2024 [facility] DATE CREATED AUTHOR AUTHOR'S ORGANIZ ATION 10/08/2024 [facility] d[facility] Specialists EPIC DATE CREATED AUTHOR AUTHOR'S ORGANIZ ATION 11/23/2024 [facility] Reason for Visit (unrecogniz ed section and content) Status Reason Specialty Diagnoses / Procedures Referred By Contact Referred To Contact Closed Cardiology / Echocardiography Diagnoses Persistent atrial fibrillation (HCC) Essential hypertension SOB (shortness of breath) Fluid retention Other specified diabetes mellitus with other specified complication, unspecified whether skilled nursing insulin use ([facility]) Class 2 obesity with body mass index (BMI) of 36.0 to 36.9 in adult, unspecified obesity type, unspecified whether serious comorbidity present Procedures ECHO Complete 2D W Doppler W Color Ej Foster MD [address] [place] [address] [place] [address] [facility] Echo [address] [place] [address] Status Reason Specialty Diagnoses / Procedures Referre d By Contact Referred To Contact Closed Radiology Diagnoses Pain in both lower extremities PVD (peripheral vascular disease) ([facility]) Procedures VL LOWER EXTREMITY ARTERIAL SEGMENTAL PRESSURES W PPG Ej Foster MD [address] [place] [address] [place] [address] Status Reason Specialty Diagnoses / Procedures Re ferred By Contact Referred To Contact Authorized Cardiology Diagnoses Essential hypertension Persistent atrial fibrillation (HCC) SOB (shortness of breath) Other specified diabetes mellitus with other specified complication, unspecified whether skilled nursing insulin use (HCC) COVID-19 Procedures Referral to Cardiac Cath [facility] ELECTIVE ARRHYTHMIA EXTERNAL Ej Foster MD [address] [place] [address] [place] [address] [place] [address] Status Reason Specialty Diagnoses / Procedures Referre [...] doppler w color complete Ej Foster MD [address] [place] [address] [place] [address] Reason Onset Date Comments re: PT today [...] be covered. He gave a reference # [id number]. Reason Comments Toenail Care PCP: Kenia Mace [...] obesity) Procedures Echo (TTE) complete (PRN contrast/bubble/strain/3D) LA ECHO TTHRC R-T 2D W/WOM-MODE COMPL SPEC&COLR D LA TTE W OR WO FOL WCON,DOPPLER Shalini Morrow PA-C [address] [place] [address] Referral ID Status Reason Start Date Expiration Date V isits Requested Visits Authorized [id number] Not Required - RTA 02/05/2024 02/04/2025 1 1 Specialty Diagnoses / Procedures Referred By Contac t Referred To Contact Diagnoses Permanent atrial fibrillation (HCC) Chronic anticoagulation Essential hypertension Type 2 diabetes mellitus with diabetic nephropathy, without long-term current use of insulin (HCC) History of COVID-19 Obesity, Class III, BMI 40-49.9 (morbid obesity) Procedures Extended cardiac holter monitor (3 days-14 day) LA EXTERNAL ECG REC>48HR<7D REVIEW & INTERPRETATION LA EXTERNAL ECG REC>48HR<7D RECORDING LA EXTERNAL ECG REC>7D<15D RECORDING LA EXTERNAL ECG REC>7D<15D REVIEW & INTERPRETATION Shalini Morrow PA-C [address] [place] [id number] Referral ID Status Reason Start Date Expiration Date V isits Requested Visits Authorized [id number] Not Required - RTA 02/05/2024 02/04/2025 1 1 Specialty Diagnoses / Procedures [facility] To Contact Cardiology Diagnoses PAF (paroxysmal atrial fibrillation) (HCC) Procedures Cardioversion external [facility] Ej Foster MD [address] [place] [phone] Referral ID Status Reason Start Date Expiration Date V isits Requested Visits Authorized [id number] Not Required - RTA 02/22/2024 02/21/2025 1 1 Reason Comments Medicare [place] Well[place] [facility] [place] [facility] [place]oses / Procedures Referred By Contac t Referred To Contact Cardiology Diagnoses AF (paroxysmal atrial fibrillation) (HCC) Procedures Extended cardiac holter monitor (3 days-14 day) LA EXTERNAL ECG REC>48HR<7D REVIEW & INTERPRETATION LA EXTERNAL ECG REC>48HR<7D RECORDING LA EXTERNAL ECG REC>7D<15D RECORDING LA EXTERNAL ECG REC>7D<15D REVIEW & INTERPRETATION Ej Foster MD [address] [place] [address] [place] [address] Referral ID Status Reason Start Date Expiration Date Visits Re quested Visits Authorized [id number] Closed 02/26/2024 02/25/2025 1 1 Reason Comments Diabetes URI Reason Comments Foot Swelling Reason Onset Date Comments PT Initial Eval 08/15/2024 Spinal Stenosis/ b/l leg weakness Call Back 08/15/2024 Call Back x2 08/26/2024 He contacted and scheduled 08/30/24 for PT Eval w/ Leroy Argueta, PT. Reason Comments DM Foot Care Established patient presents today for routine diabetic nail care. PCP: Kenia Castillo LV 07/09/24, A1C: 6.3 (05/2024), BS: 99 Reason Comments Diabetes Care Teams (unrecognized sec tion and content) Heel Coverer Machine Operator Relationship Specialty Start Date End Date Bernie Adam MD [address] [facility] [place] [address] PCP - ACO Reach 07/07/22 Bernie Adam MD [address] [place] [address] PCP - General Family Medicine 08/01/22 Heel Coverer Machine Operator Relationship Specialty Start Date End Date Bernie Adam MD [address] [place] [address] PCP - ACO Reach 07/07/22 Bernie Adam MD [address] [place] [address] PCP - General Family Medicine 08/01/22 Heel Coverer Machine Operator Relationship Specialty Start Date End Date Bernie Adam MD [address] [place] [address] PCP - ACO Reach 07/07/22 Bernie Adam MD [address] [place] [address] PCP - General Family Medicine 08/01/22 Heel Coverer Machine Operator Relationship Specialty Start Date End Date Bernie Adam MD [address] [place] [address] PCP - ACO Reach 07/07/22 Bernie Adam MD [address] [place] [address] PCP - General Family Medicine 08/01/22 Heel Coverer Machine Operator Relationship Specialty Start Date End Date Bernie Adam MD [address] [place] [address] PCP - ACO Reach 07/07/22 Bernie Adam MD [address] [place] [address] PCP - General Family Medicine 08/01/22 Team [...] May 23, 2023 End: May 23, 2023 Trenton Redd PA-C Attending Provider Active S tart: May 23, 2023 End: May 23, 2023 Heel Coverer Machine Operator Relationship Specialty Start Date End Date Bernie Adam MD [address] [place] [address] PCP - General Family Medicine 08/01/22 Bernie Adam MD [address] [place] [address] PCP - ACO Reach 06/14/23 Heel Coverer Machine Operator Relationship Specialty Start Date End Date Bernie Adam MD [address] [place] [address] PCP - General Family Medicine 08/01/22 Bernie Adam MD [address] [place] [address] PCP - ACO Reach 06/14/23 Heel Coverer Machine Operator Relationship Specialty Start Date End Date Bernie Adam MD [address] [place] [address] PCP - General Family Medicine 08/01/22 Bernie Adam MD [address] [place] [address] PCP - ACO Reach 06/14/23 Heel Coverer Machine Operator Relationship Specialty Start Date End Date Bernie Adam MD [address] [place] [address] PCP - General Family Medicine 08/01/22 Bernie Adam MD [address] [place] [address] PCP - ACO Reach 06/14/23 Heel Coverer Machine Operator Relationship Specialty Start Date End Date Bernie Adam MD [address] [place] [address] PCP - General Family Medicine 08/01/22 Bernie Adam MD [address] [place] [address] PCP - ACO Reach 06/14/23 Heel Coverer Machine Operator Relationship Specialty Start Date End Date Bernie Adam MD [address] [place] [address] PCP - General Family Medicine 08/01/22 Bernie Adam MD [address] [place] [address] PCP - ACO Reach 06/14/23 Heel Coverer Machine Operator Relationship Specialty Start Date End Date Bernie Adam MD [address] [place] [address] PCP - General Family Medicine 08/01/22 eBrnie Adam MD [address] [place] [address] PCP - ACO Reach 06/14/23 Heel Coverer Machine Operator Relationship Specialty Start Date End Date Bernie Adam MD [address] [place] [address] PCP - General Family Medicine 08/01/22 Bernie Adam MD [address] [place] [address] PCP - ACO Reach 06/14/23 Heel Coverer Machine Operator Relationship Specialty Start Date End Date Bernie Adam MD [address] [place] [address] PCP - General Family Medicine 08/01/22 Bernie Adam MD [address] [place] [address] PCP - ACO Reach 06/14/23 Heel Coverer Machine Operator Relationship Specialty Start Date End Date Bernie Adam MD [address] [place] [address] PCP - General Family Medicine 08/01/22 Bernie Adam MD [address] [place] [address] PCP - ACO Reach 06/14/23 Heel Coverer Machine Operator Relationship Specialty Start Date End Date Jeannine Evangelista APRN - AUTOMATIC CORN GRINDER OPERATOR [address] [place] [address] PCP - General Nurse Practitioner Family 01/30/20 Heel Coverer Machine Operator Relationship Specialty Start Date End Date Jeannine Evangelista APRN - AUTOMATIC CORN GRINDER OPERATOR [address] [place] [address] PCP - General Nurse Practitioner Family 01/30/20 Heel Coverer Machine Operator Relationship Specialty Start Date End Date Bernie Adam MD [address] [place] [address] PCP - General Family Medicine 08/01/22 Bernie Adam MD [address] [place] [address] PCP - ACO Reach 06/14/23 Heel Coverer Machine Operator Relationship Specialty Start Date End Date Jeannine Evangelista APRN - AUTOMATIC CORN GRINDER OPERATOR [address] [place] [address] PCP - General Nurse Practitioner Family 01/30/20 Heel Coverer Machine Operator Relationship Specialty Start Date End Date Bernie Adam MD [address] [place] [address] PCP - General Family Medicine 08/01/22 Bernie Adam MD [address] [place] [address] PCP - ACO Reach 06/14/23 Heel Coverer Machine Operator Relationship Specialty Start Date End Date Jeannine Evangelista, CARTON COUNTER FEEDER - AUTOMATIC CORN GRINDER OPERATOR [address] [place] [address] PCP - General Nurse Practitioner Family 01/30/20 Heel Coverer Machine Operator Relationship Specialty Start Date End Date Bernie Adam MD [address] [place] [address] PCP - General Family Medicine 08/01/22 Bernie Adam MD [address] [place] [address] PCP - ACO Reach 06/14/23 Heel Coverer Machine Operator Relationship Specialty Start Date End Date Bernie Adam MD [address] [place] [address] PCP - General Family Medicine 08/01/22 Heel Coverer Machine Operator Relationship Specialty Start Date End Date Bernie Adam MD [address] [place] [address] PCP - General Family Medicine 08/01/22 Heel Coverer Machine Operator Relationship Specialty Start Date End Date Bernie Adam MD [address] [place] [address] PCP - General Family Medicine 08/01/22 Heel Coverer Machine Operator Relationship Specialty Start Date End Date Bernie Adam MD [address] [place] [address] PCP - General Family Medicine 08/01/22 Heel Coverer Machine Operator Relationship Specialty Start Date End Date Bernie Adam MD [address] [place] [address] PCP - General Family Medicine 08/01/22 Heel Coverer Machine Operator Relationship Specialty Start Date End Date Bernie Adam MD [address] [place] [address] PCP - General Family Medicine 08/01/22 Heel Coverer Machine Operator Relationship Specialty Start Date End Date Bernie Adam MD [address] [place] [address] PCP - General Family Medicine 08/01/22 Heel Coverer Machine Operator Relationship Specialty Start Date End Date Bernie Adam MD [address] [place] [address] PCP - General Family Medicine 08/01/22 Heel Coverer Machine Operator Relationship Specialty Start Date End Date Bernie Adam MD [address] [place] [address] PCP - General Family Medicine 08/01/22 Heel Coverer Machine Operator Relationship Specialty Start Date End Date Bernie Adam MD [address] [place] [address] PCP - General Family Medicine 08/01/22 Heel Coverer Machine Operator Relationship Specialty Start Date End Date Bernie Adam MD [address] [place] [address] PCP - General Family Medicine 08/01/22 Heel Coverer Machine Operator Relationship Specialty Start Date End Date Bernie Adam MD [address] [place] [address] PCP - General Family Medicine 08/01/22 Heel Coverer Machine Operator Relationship Specialty Start Date End Date Bernie Adam MD [address] [place] [address] PCP - General Family Medicine 08/01/22 Heel Coverer Machine Operator Relationship Specialty Start Date End Date Bernie Adam MD [address] [place] [address] PCP - General Family Medicine 08/01/22 Heel Coverer Machine Operator Relationship Specialty Start Date End Date Bernie Adam MD [address] [place] [address] PCP - General Family Medicine 08/01/22 Heel Coverer Machine Operator Relationship Specialty Start Date End Date Bernie Adam MD [address] [place] [address] PCP - General Family Medicine 08/01/22 Heel Coverer Machine Operator Relationship Specialty Start Date End Date Bernie Adam MD [address] [place] [address] PCP - General Family Medicine 08/01/22 Heel Coverer Machine Operator Relationship Specialty Start Date End Date Bernie Adam MD [address] [place] [address] PCP - General Family Medicine 08/01/22 Heel Coverer Machine Operator Relationship Specialty Start Date End Date Bernie Adam MD [address] [place] [address] PCP - General Family Medicine 08/01/22 Heel Coverer Machine Operator Relationship Specialty Start Date End Date Bernie Adam MD [address] [place] [address] PCP - General Family Medicine 08/01/22 Heel Coverer Machine Operator Relationship Specialty Start Date End Date Bernie Adam MD [address] [place] [address] PCP - General Family Medicine 08/01/22 Heel Coverer Machine Operator Relationship Specialty Start Date End Date Bernie Adam MD [address] [place] [address] PCP - General Family Medicine 08/01/22 Goals [...] BE BASED ON THE PRIMARY CLINICAL RECORDS. [facility] [employer] [facility]. provides no warranty or guarantee of the accuracy or completeness of information in this document.
--- NOTE | 2024-11-28 14:17 | PM.CN ---
Consult Note: HPI Data of Consult Patient: known to practice within the last 3 years Consult date: 11/28/24 Requesting Physician: Kelley Richard NP Primary Care Provider: Non-Staff Physician, MD Consult Narrative Reason for consult: left hip pain Narrative: Yang Card a pleasant 74 year old male presents for evaluation of chronic left hip pain. at last visit we focused on lumbar stenosis with NC and trialed PT, which pt did not find beneficial. pt has a hx of left hip OA with benefit to steroidal injections. has failed to benefit from > 6 weeks of HEP/PT, heat, ice, tylenol, and cannot take NSAIDs as he is on eliquis. notes pain 3/10 sharp stabbing in left thigh and groin. utilizing gabapentin 600mg BID, robaxin 500-1000mg bid prn pain/spasms, tylenol rn, and hydrocodone-acetaminophen 5-325mg very sparingly with benefit without side effects. pt is not interested in NS consultation or orthopedic consultation, is not interested in scs trial at this time. finding benefit to recent left hip injection, notes >50% improvement ongoing cc:: CC: Kelley Richard NP Review of Systems ROS Musculoskeletal Reports: extremity pain and joint pain PFSH PFSH Medical History (Updated 08/14/24 @ 14:17 by Kelley Richard NP) Diabetes ?E11.9 - Type 2 diabetes mellitus without complications (ICD-10) High cholesterol ?E78.00 - Pure hypercholesterolemia, unspecified (ICD-10) Atrial fibrillation, chronic ?I48.20 - Chronic atrial fibrillation, unspecified (ICD-10) HTN (hypertension) ?I10 - Essential (primary) hypertension (ICD-10) Surgical History History of knee surgery ?Z98.890 - Other specified postprocedural states (ICD-10) History of back surgery ?Z98.890 - Other specified postprocedural states (ICD-10) Meds Home Medications and Allergies Home Medications ?Medication ?Instructions ?Recorded ?Confirmed ?Type allopurinol 100 mg tablet 100 mg PO DAILY 06/22/23 11/18/24 History apixaban 5 mg tablet (Eliquis) 5 mg PO BID 06/22/23 11/18/24 History ascorbic acid (vitamin C) 500 mg 500 mg PO DAILY 06/22/23 11/18/24 History chewable tablet atorvastatin 10 mg tablet 10 mg PO DAILY 06/22/23 11/18/24 History cholecalciferol (vitamin D3) 25 1,000 unit PO DAILY 06/22/23 11/18/24 History mcg (1,000 unit) tablet (Vitamin D3) losartan 50 mg-hydrochlorothiazide 1 tab PO DAILY 06/22/23 11/18/24 History 12.5 mg tablet metformin 500 mg tablet 500 mg PO BID 06/22/23 11/18/24 History metoprolol tartrate 25 mg tablet 12.5 mg PO BID 06/22/23 11/18/24 History omeprazole 20 mg capsule,delayed 20 mg PO DAILY 06/22/23 11/18/24 History release ropinirole 1 mg tablet 1.5 mg PO DAILY 06/22/23 11/18/24 History tamsulosin 0.4 mg capsule 0.4 mg PO DAILY 06/22/23 11/18/24 History gabapentin 600 mg tablet 600 mg PO BID #60 tabs 04/08/24 11/18/24 Rx hydrocodone 5 mg-acetaminophen 325 1 tab PO BID PRN pain #14 tabs 06/19/24 11/18/24 Rx mg tablet baclofen 10 mg tablet See Rx Instructions .Route 07/17/24 11/18/24 Rx .COMPLEX PRN muscle spasm #30 tabs Allergies Allergy/AdvReac Type Severity Reaction Status Date / Time No Known Drug Allergies Allergy Verified 11/18/24 11:28 Exam Constitutional Documenting provider has reviewed patient's vital signs: yes Common normals: no apparent distress, oriented x3, healthy appearing, alert and well nourished General appearance: cooperative [facility] Common normals: normocephalic, hearing grossly normal bilaterally and moist oral mucous membranes Head and scalp: normocephalic Eye Common normals: PERRL Pupil: PERRL Neck & C-Spine Common normals: full ROM General: normal visual inspection Chest Common normals: inspection of chest normal Respiratory Common normals: normal respiratory effort, no retractions and no use of accessory muscles Back & Pelvis Lumbar spine/lower back: pain with ROM, lumbar spinal tenderness and straight leg raise positive left Extremity Left lower extremity: hip joint Other: mild pain with internal and external rotation Neuro Common normals: oriented x3 Sensorium/orientation: alert Psych Common normals: mental status grossly normal, thought process normal, cooperative, affect normal, speech normal and activity/motor behavior normal Speech: normal speech Thought process: normal thought process Results Additional Findings Additional findings: If on a controlled substance or opioids, I have checked an [place]AR[place] report on this patient and there are no aberrancies noted in the prescribing history.??If on a controlled substance or opioid a drug screen was completed and reviewed within the last year, and if there has not been a drug screen completed we ordered one today to monitor higher risk, state monitored pain medication use. As part of providing excellent, safe, comprehensive care, the following was completed at our patient's visit: 1. A medication reconciliation and review to ensure accurate knowledge of current/active medications, including asking our patients to inform us about any zinl-jhu-clwhqzv medications or herbal remedies/nutritional supplements/alternative remedies. 2. A review to specifically ensure our patients have had annual screening for screening for depression, screening for tobacco use, and screening for unhealthy alcohol use. For concerning screenings had a discussion with the patient, provided patient education, and recommended follow-up with primary care provider when appropriate. If patient noted with a risk of falling, they received education on strength, gait, and balance training to prevent future risk of falling. Portions of this note may have been carried over from the previous visit and updated as appropriate. Please note this office utilizes paper charting in addition to the electronic medical record. A list of current medications, vitals, and PMH is available there as the clinical staff outside of myself do not have access to [employer] charting during the clinic day operations. As part of providing quality comprehensive care the current medications, vitals, and PMH were reviewed in the paper chart. Assessment and Plan Assessment and Plan (1) Osteoarthritis of left hip: Assessment and Plan: The patient has had over 3 months of moderate to severe left hip pain with functional impairment and inadequate response to conservative care including NSAIDS (unless there are contraindication such as concurrent blood thinners), multiple oral or topical pain medications, and home exercise program/physical therapy.? Patient has completed >6 weeks of guided home exercise program and/or formal physical therapy program without relief of their symptoms.? The Oswestry Disability Index was completed, and the patient scored a 20%.? 11/06 left hip injection >50% improvement greater than 4 months 11/18/24 left hip injection >50% improvement ongoing (2) Lumbar stenosis with neurogenic claudication: (3) Meralgia paresthetica of left side: (4) Chronic prescription opiate use: Plan continue current medications continue HEP as tolerated f/u 3 months, sooner if needed
== END 2024-11-28 13:44 | disposition home or self-care (01) ==
LOC: PM 13:44
PROVIDERS: Visit Provider Nurse Practitioner
DX: M16.12 Unilateral primary osteoarthritis, left hip (principal); M48.062 Spinal stenosis, lumbar region with neurogenic claudication; G57.12 Meralgia paresthetica, left lower limb; Z79.891 Long term (current) use of opiate analgesic
CPT/HCPCS: G0463

== ENCOUNTER 2025-01-15 14:14 | Outpatient (OUT) | payer OTHER, SELFPAY ==
--- OUTSIDE RECORDS SUMMARY | 2025-01-15 14:17 | XMS_ITS | Clinical Summary ---
Author Organization [facility] Address [id number] [address] [place] [address] Care Team Providers Care Service Desk Director Name Role Phone Jeannine Evangelista ROLL INSPECTOR-EXPERIMENTAL WORKER Primary Care Pro vider Allergies No known active allergies Medications MedicationSigDispense QuantityRefillsLast FilledStart DateEnd DateStatus allopurinoL (ZYLOPRIM) 100 mg tablet Take 100 mg by mouth daily.Active omeprazole (PriLOSEC) 40 mg capsule Take 40 mg by mouth daily.Active apixaban (ELIQUIS) 5 mg tablet Take 1 tablet (5 mg total) by mouth 2 (two) times a day. 60 tablet 12/29/2019Active insulin glargine (LANTUS, BASAGLAR) 100 unit/mL (3 mL) insulin pen Inject 10 Units under the skin 2 (two) times a day. 1 Box Active insulin lispro (HumaLOG) 100 unit/mL insulin pen Inject 2-10 Units under the skin 4 (four) times a day with meals and nightly. 1 Box Active melatonin (CIRCADIN) tablet Take 1 tablet (3 mg total) by mouth nightly. 30 tablet 12/29/2019Active metoprolol tartrate (LOPRESSOR) 25 mg tablet Take 0.5 tablets (12.5 mg total) by mouth 2 (two) times a day. 30 tablet 12/29/2019Active Active Problems ProblemNoted DateDiagnosed DatePneumonia due to COVID-19 virus12/29/2019 Paroxysmal atrial tzcyryfpmrcu31/03/2020COVID-19102/14/2019 Social History Tobacco UseTypesPacks/DayYears UsedDateSmoking Tobacco: Never AssessedChildcare AnswerDate MuzfztdmDpulzltdjBzmzcys09/02/2020EmploymentAnswerDate Recorded ZjqrjyxeapUgkqnyb21/02/2020Purpose - LifeAnswerDate RecordedPurpose and direction in xcjnSzrgqva81/11/2021ex and Gender InformationValueDate Recorded Sex Assigned at BirthNot on fileLegal JvpQqzv5809/18/2014 11:25 AM EDTGender IdentityNot on fileSexual OrientationNot on file Last Filed Vital Signs Vital SignReadingTime TakenCommentsBlood Dccwwhwt786/7212/29/2019 3:40 PM EST Wnheq979112/29/2019 3:40 PM TBTLhzfksyomlr83.9 ??C (98.4 ??F)12/29/2019 3:40 PM ESTRespiratory Exea8579 3:40 PM ESTOxygen Hibbiyngdh65%12/29/2019 3:40 PM ESTInhaled Oxygen Concentration--Cgndhd778.3 kg (287 lb 4.2 oz)12/21/2019 4:27 AM JBAFpxqnh420.4 cm (6' 1 )12/20/2019 10:00 AM ESTBody Mass Index37.9 12/20/2019 10:00 AM EST Plan of Treatment Health MaintenanceDue DateLast DoneCommentsDepression Exslkhemn90/21/1961Tobacco Dywwdcoso79/21/1961Zoster (Shingles) Vaccine (2 of 3)07/17/201204/10/2012Fall Risk Nogcclcme78/21/2014COVID-19 Vaccine ( season)2024 12/05/2022, 11/01/2021, 11/12/2020, Additional history existsInfluenza Vaccine 509/, 11/01/2021, 10/30/2021, Additional history existsDTaP,Tdap and Td Vaccines (2 - Td or Tdap)RSV ( or age 60+ yrs)Nigdqizhy25/23/2023 Goals GoalPatient Goal TypeAssociated ProblemsRecent ProgressPatient-Stated?Author Discharge Jessi Desai RN Note: Evaluation of progress towards goal: Patient plans to discharge home self care with 's support. Medical Devices Not on file Insurance Advance Directives * Full Code (Latest Code Status on File) Date ActivatedDate GocnjnlyeylBigfptpj82/2/2020 12:09 PM12/29/2019 7:27 PM Care Teams Team MemberRelationshipSpecialtyStart DateEnd Date Jeannine Evangelista APRN-EXPERIMENTAL WORKER [address] [place] [address] PCP - GeneralInternal Srfninzr83/3/20
--- OUTSIDE RECORDS SUMMARY | 2025-01-15 14:18 | XMS_ITS | Clinical Summary ---
Author Organization [facility] Address [address] [place] [address] Care Team Providers Care Six Sigma Black Belt Engineer Name Role Phone Unavailable Primary Care Provider Unavailabl e Social History Tobacco UseTypesPacks/DayYears UsedDateSmoking Tobacco: Never AssessedSex and Gender InformationValueDate RecordedSex Assigned at BirthNot on fileLegal Sex Male08/12/2021 12:32 AM EDTGender IdentityNot on fileSexual OrientationNot on file Plan of Treatment Not on file
--- OUTSIDE RECORDS SUMMARY | 2025-01-15 14:18 | XMS_ITS | Patient Health Record ---
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 Moreira's box.Catie Amy 04/08/2024 03:06:00 PM >Called pt and reviewed approval of both upper and lower CDs and confirmed that we were going to be moving forward with both. Pt confirmed. Scheduled series.Caite Amy 06/06/2024 01:37:57 PM >CDs were delivered to pt today. Marked as completed tx. Referral Priority Routine Medications Medication SIG (Take, Route, Frequency, Duration) Notes Start Date End Date Status Metoprolol Tartrate 25 MG Tablet Oral; Duration: 90 Days ActiveAtorvastatin Calcium 10 MG TabletOral; Duration: 90 DaysActiveAmiodarone HCl 200 MG TabletOral; Duration: 90 DaysActiveAllopurinol 100 MG TabletOral; Duration: 90 DaysActiveHYDROcodone-Acetaminophen 5-325 MG Tablet1 tablet as needed Orally every 6 hrs; Duration: 3 days5ActiveHYDROcodone- Acetaminophen 5-325 MG Tablet1 tablet as needed Orally every 6 hrs; Duration: 3 days5ActiveAmiodarone HCl 200 MG TabletOral; Duration: 30 DaysActive Eliquis 5 MG Tablet1 tablet Orally Twice a day; Duration: 30 day(s)06/21/2023 ActivetiZANidine HCl 2 MG TabletOral; Duration: 5 DaysActivemetFORMIN HCl 500 MG TabletOral; Duration: 90 DaysActiveTamsulosin HCl 0.4 MG CapsuleOral; Duration: 90 DaysActiverOPINIRole HCl 1 MG TabletOral; Duration: 90 DaysActiveOmeprazole 20 MG Capsule Delayed ReleaseOral; Duration: 90 DaysActive Social History Tobacco Use: Social History Observation Description Date Details (start date - stop date) Never Smoker NA - NA Sex Assigned At : Social History Observation Description Sex Assigned At Male Social History Tobacco Use:Social InfoQuestionAnswerNotesTobacco Control (Standard)Tobacco use: NonsmokerAdditional Findings: Tobacco non-userCurrent nonsmokerSection Notes: Nutrition counseling focusin g on a [...] Body mass index 40+ - morbidly obese (476307510) BMI 40.0-44.9, adult (Z68.41) Activeconfirmed Vital Signs Heart Rate 66 /min 06/13/2024 Blood pressure wtxlcodvg96 mm Hg06/13/2024Height-cm182.88 cm06/24/2024Weight-kg 141.98 kg06/24/20243812Xmpulw58 in06/24/2024lood pressure kbxcveve799 mm Hg 06/13/20246436Ikcbul965 lbs06/24/2024BMI42.45 kg/m206/24/2024 Encounters Encounter Location Date Provider Diagnosis [facility] [address] [place] [address] [id number] 02/28/2024 Soo Hatala BMI 40.0-44.9, rasta lt Z68.41 ; Dietary counseling Z71.3 ; Exercise counseling Z71.82 ; Necrosis of pulp K04.1 ; Encounter for dental examination and cleaning with abnormal findings Z01.21 and Complete loss of teeth, unspecified cause, class I K08.101 [facility] [address] [place] [address] [id number] 04/24/2024 Soo Hatala Other specified disorders of teeth and supporting structures K08.8 [facility] [address] [place] [address] [id number] 05/01/2024 Soo Hatala Other specified disorders of teeth and supporting structures K08.8 [facility] [address] [place] [address] [id number] 05/09/2024 Soo Hatala Other specified disorders of teeth and supporting structures K08.8 [facility] [address] [place] [address] [id number] 05/16/2024 Soo Hatala Other specified disorders of teeth and supporting structures K08.8 [facility] [address] [place] [address] [id number] 05/23/2024 Soo Hatala Other specified disorders of teeth and supporting structures K08.8 [facility] [address] [place] [address] [id number] 05/30/2024 Soo Hatala Other specified disorders of teeth and supporting structures K08.8 [facility] [address] [place] [address] [id number] 06/06/2024 Soo Hatala BMI 40.0-44.9, rasta lt Z68.41 and Complete loss of teeth, unspecified cause, class I K08.101 [facility] [address] [place] [address] [id number] 06/10/2024 Soo Hatala BMI 40.0-44.9, rasta lt Z68.41 and Other specified disorders of teeth and supporting structures K08.[address] [facility] [address] [place] [address] [id number] 06/13/2024 Soo Hatala Other specified disorders of teeth and supporting structures K08.[address] [facility] [address] [place] [address] [id number] 06/24/2024 Soo Hatala Other specified disorders of teeth and supporting structures K08.[address] [facility] [address] [place] [address] [id number] 02/28/2024 Soo Moreira Assessments Encounter Date Diagnosis (ICD Code) Assessment Notes Treatment Notes Treatment Clinical Notes Section Notes 02/28/2024 BMI 40.0-44.9, adult (ICD-10 - Z 68.41) 04/24/2024Other specified disorders of teeth and supporting structures (ICD-10 - K08.8)05/01/2024Other specified disorders of teeth and supporting structures (ICD-10 - K08.8)05/09/2024Other specified disorders of teeth and supporting structures (ICD-10 - K08.8)05/16/2024Other specified disorders of teeth and supporting structures (ICD-10 - K08.8)05/23/2024Other specified disorders of teeth and supporting structures (ICD-10 - K08.8)05/30/2024Other specified disorders of teeth and supporting structures (ICD-10 - K08.8)06/06/2024MI 40.0- 44.9, adult (ICD-10 - Z68.41)5BMI 40.0-44.9, adult (ICD-10 - Z68.41) 06/13/2024Other specified disorders of teeth and supporting structures (ICD-10 - K08.8)06/24/2024Other specified disorders of teeth and supporting structures (ICD-10 - K08.8)06/10/2024Other specified disorders of teeth and supporting structures (ICD-10 - K08.8)5Complete loss of teeth, unspecified cause, class I (ICD-10 - K08.101)02/28/2024Dietary counseling (ICD-10 - Z71.3) 02/28/2024Exercise counseling (ICD-10 - Z71.82)02/28/2024Necrosis of pulp (ICD- 10 - K04.1)02/28/2024Encounter for dental examination and cleaning with abnormal findings (ICD-10 - Z01.21)02/28/2024omplete loss of teeth, unspecified cause, class I (ICD-10 - K08.101) Plan Of Treatment No Information Insurance Providers Payer Name Payer Address Payer Phone Subscriber Number Group Number Insured Name Patient Relationship to Insured Coverage Start Date Coverage End Date DWellcare [facility] [employer] [address] [place] [address] [id number] Braden Card - patient is the [id number] 2023 Medical (General) History Medical History History ICD Code high blood pressure artificial jointsblood thinnerA-fibdiabetes
--- OUTSIDE RECORDS SUMMARY | 2025-01-15 14:18 | XMS_ITS | Clinical Summary ---
Author Organization [facility] Healthcare Address [address] [place] [address] Care Team Providers Care Tour Counselor Name Role Phone Bernie Adam MD Primary Care Provider [phone] Allergies No known active allergies Medications MedicationSigDispense QuantityRefillsLast FilledStart DateEnd DateStatus VITAMIN D, CHOLECALCIFEROL, PO Active Bioflavonoid Products (VITAMIN C PLUS PO) Take by mouthActive gabapentin (Neurontin) 300 MG capsule Take 300 mg by mouth in the morning and 300 mg before bedtime.4Active amiodarone (Pacerone) 200 MG tablet Oral for 30 Days5Active tamsulosin (Flomax) 0.4 MG 24 hr capsule Indications:Benign prostatic hyperplasia with nocturiaTake 1 capsule (0.4 mg) by mouth at bedtime 90 capsule 5Active omeprazole (PriLOSEC) [address] capsule Indications:Gastroesophageal reflux disease without esophagitisTake 1 capsule (20 mg) by mouth in the morning. Take before meals. Do not crush or chew. 90 capsule 5Active metFORMIN (Glucophage) 500 MG tablet Indications:Type 2 diabetes mellitus with diabetic peripheral angiopathy without gangrene (HCC)Take 1 tablet (500 mg) by mouth in the morning and 1 tablet (500 mg) in the evening. Take with meals. 180 tablet 5Active losartan-hydroCHLOROthiazide (Hyzaar) 50-12.5 MG tablet Indications:Primary hypertensionTake 1 tablet by mouth in the morning. 90 tablet 5Active atorvastatin (Lipitor) 10 MG tablet Indications:Other hyperlipidemiaTake 1 tablet (10 mg) by mouth in the morning. 90 tablet 5Active apixaban (Eliquis) 5 MG tablet Indications:Paroxysmal atrial fibrillation (HCC)Take 1 tablet (5 mg) by mouth in the morning and 1 tablet (5 mg) before bedtime. 180 tablet tive amitriptyline (Elavil) 10 MG tablet Indications:Insomnia, unspecified type,Lumbar radiculopathyTake 1 tablet (10 mg) by mouth at bedtime 90 tablet 5Active allopurinol (Zyloprim) 100 MG tablet Indications: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Take 1 tablet (100 mg) by mouth in the morning. 90 tablet tive methocarbamol (Robaxin) 500 MG tablet Take 500 mg by mouth every 8 (eight) hours if kdnhan2109/11/2024tive finasteride (Proscar) 5 MG tablet Indications:Benign prostatic hyperplasia with lower urinary tract symptoms, symptom details unspecifiedTake 1 tablet (5 mg) by mouth Daily Do not crush, chew, or split. 90 tablet tive metoprolol tartrate (Lopressor) 50 MG tablet Indications:Primary hypertension,Paroxysmal atrial fibrillation (HCC)TAKE 1 TABLET IN THE MORNING AND 1 TABLET BEFORE BEDTIME 180 tablet tive rOPINIRole (Requip) 1 MG tablet Indications:Restless legs syndromeTAKE ONE AND ONE-HALF TABLETS AT BEDTIME 135 tablet tive rOPINIRole (Requip) 1 MG tablet Indications:Restless Leg SyndromeTake 1.5 tablets (1.5 mg) by mouth at bedtime 135 tablet Discontinued metoprolol tartrate (Lopressor) 50 MG tablet Indications:Primary hypertension,Paroxysmal atrial fibrillation (HCC)Take 1 tablet (50 mg) by mouth in the morning and 1 tablet (50 mg) before bedtime. 180 tablet Discontinued Active Problems ProblemNoted DateDiagnosed DateBody mass index (BMI) 40.0-44.9, adult07/09/2024 Limb /03/8128Oqqusgqo04/03/7989Dwkwzoyxwxa06/03/2024Lumbar jqscdjrgoppnz41/03/2024cute left-sided low back pain without ajpwincn75/12/2023 Left hip pain10/25/2022History of knfqbfshfuhcu57/22/2023Osteoarthritis of both knees10/04/2022rimary osteoarthritis involving multiple wvhtql7510/04/2022 Restless legs ccemtdev18/15/2023ERD without /05/2023Hyperlipidemia 07/18/20224673Wjhabmtbhbey98/05/2023Idiopathic chronic gout of left foot without ltnsfo5407/18/2022VD (peripheral vascular disease)08/30/2021cquired leg length fzxbzsxulnf90/13/2022tatus post total left knee faxcoqyenga60/31/2022ifficulty ovigbcb3203/07/2021rtificial knee joint uusszdc8903/03/2021Vitamin D deficiency 5323Wobc-ULNEV-91 tejayvofr36/15/2021OVID-19004/27/2020Type 2 diabetes mellitus without djtxiwwuzuzuo05/19/2020Paroxysmal atrial pbayjdoirclv15/03/2020 Impaired fasting edcdgzo2212/12/2018Peripheral edema11/28/2018Tinea pedis 11/28/20184978Slkncdobl58/14/2018Chronic gouty erbwsfeif10/15/2016Polio ([facility]) 07/29/2015 Resolved Problems ProblemNoted DateDiagnosed DateResolved DateOther viral zjasgjgct53/04/2020 4Pneumonia due to COVID-19 virus4Pure cbdstshtsauwxztfr37Sinus pain Encounters DateTypeDepartmentCare UzbbWkjadeathtx49/05/2025Refill NOMS [facility] Medicine [address] [facility] [place] [address] Kenia Castillo, KIERA Primary hypertension; Paroxysmal atrial fibrillation (HCC); Restless legs syndromefrom Last 3 Months Immunizations ImmunizationAdministration DatesNext DueInfluenza, High Dose Seasonal, Preservative Free11/21/2023,11/01/2022,11/27/2018,11/27/2017Influenza, High-dose Seasonal, Quadrivalent, Preservative Free10/30/2021,11/12/2020,11/11/2020, 11/27/2017Influenza, Seasonal, Quadrivalent, Vhqokluzzi23/19/2022Influenza, injectable, udwzgsoeqnqb38/10/2017Influenza, injectable, quadrivalent, preservative free11/28/2019,11/28/2018,11/22/2016,12/11/2013Influenza, seasonal, pjlibcuhif51/29/2014,02/02/2012Influenza, seasonal, injectable, preservative free01/21/2015,03/13/2013Pfizer Purple Cap SARS-CoV-2 Ioqtqripeyt78/29/2021, 04/12/2020,1Pneumococcal Conjugate PCV 13007/29/2015Pneumococcal Conjugate PCV 4Pneumococcal Polysaccharide UOIY3180, 03/13/2013RSV, recombinant, protein subunit RSVpreF, adjuvant reconstitu, 120mcg/0.5mL, PF (Arexvy)12/05/20221505HIRA-WSD-7 (COVID-19) vaccine, mRNA, spike protein, LNP, PF, 50 mcg/0.5 mL11/21/20232309DSZV-NJP-2 (COVID-19) vaccine, mRNA, spike protein, LNP, bivalent, preservative free, 30 mcg/0.3 mLdose, mauro-sucrose muyfsmfkhlg86/19/6209WTAT-NuO-0, Qnxnsavvhlr96/19/9802Edpv20/16/2019Zoster, live 05/22/2012 Family History Medical HistoryRelationNameCommentsStrokeFatherHeart diseaseMotherHypertension MotherStrokeMotherRelationNameStatusCommentsFatherDeceasedMotherDeceased Social History Tobacco UseTypesPacks/DayYears UsedDateSmoking Tobacco: NeverSmokeless Tobacco: Never Tobacco Cessation:Counseling Given: Not Answered Alcohol UseStandard Drinks/WeekCommentsYes3 (1 standard drink = 0.6 oz pure alcohol)caffeine intake: 12 oz dailyAUDIT-CAnswerDate RecordedQ1: How often do you have a drink containing alcohol?2-4 times a month09/19/2023Q2: How many drinks containing alcohol do you have on a typical day when you are drinking?3 or Q3: How often do you have six or more drinks on one occasion?Never 09/19/2023HQ-2AnswerDate RecordedPatient Health Questionnaire-2 Score0 12/02/2022Sex and Gender InformationValueDate RecordedSex Assigned at BirthNot on fileLegal KzjApsx9004/27/2022 7:26 PM EDTGender IdentityNot on fileSexual OrientationNot on file Last Filed Vital Signs Vital SignReadingTime TakenCommentsBlood Ekszifvk457/7808 12:54 PM EDT Amhpc030609/18/2024 12:54 PM MNBYcxomfkppzk73.2 ??C (98.9 ??F)05/20/2024 1:54 PM EDTRespiratory Gfhf210109/18/2024 12:54 PM EDTOxygen Rfeplalwsb26%09/18/2024 12:54 PM EDTInhaled Oxygen Concentration--Aeolbf910 kg (306 lb)09/18/2024 12:54 PM EDT Grpdqb607.6 cm (5' 11.5 )09/18/2024 12:54 PM EDTBody Mass Index42.0809/18/2024 12:54 PM EDT Plan of Treatment DateTypeDepartmentCare Team (Latest Contact Info)Zmudbjehrnk57/08/2025 2:00 PM ESTOffice Visit [facility] [address] [place] [phone] Kenia Castillo NP [address] [place] [address] Health MaintenanceDue DateLast DoneCommentsDiabetes: Retinopathy Screening /OVID-19 Vaccine ( season)/, 11/01/2021, 11/12/2020, Additional history existsInfluenza Vaccine (#1) 510/09/2023, 11/01/2022, 11/01/2021, Additional history existsDiabetes: Hemoglobin A1C508/07/2024, 05/20/2024, 02/20/2024, Additional history existsDiabetes: Urine Protein Ajebyklke51/07/599539/08/2024, 11/01/2022, 12/07/2021, Additional history existsPneumococcal Vaccine: 65+ YearsCompleted 11/21/2023, 12/02/2022, 07/29/2015, Additional history exists Procedures Procedure NamePriorityDate/TimeAssociated DiagnosisCommentsPOCT GLYCATED HEMOGLOBIN, TZFTBOqsihej83/06/2025 1:03 PM EDT Type 2 diabetes mellitus with diabetic peripheral angiopathy without gangrene, without long-term current use of insulin (HCC) MICROALBUMIN / CREATININE URINE VUNESAqoqvcb30/07/2025 2:47 PM EST Encounter for wellness examination Type 2 diabetes mellitus with other specified complication, without long-term current use of insulin (HCC) COLOR FUNDUS PHOTOGRAPHY - OU - BOTH XAWSDpkxmvu99/20/2021 12:00 PM EDT Type 2 diabetes mellitus without complications (HCC) Encounter for screening for eye and ear disorders from Last 3 Months or Most Recently Relevant to Health Maintenance Results * POCT Glycated hemoglobin, total (09/18/2024 1:03 PM EDT)ComponentValueRef RangeTest MethodAnalysis TimePerformed AtPathologist SignatureHemoglobin A1C 6.4Specimen (Source)Anatomical Location / LateralityCollection Method / Volume Collection TimeReceived MemcXpjplpnse78/06/2025 1:03 PM EDT Narrative Authorizing ProviderResult TypeResult StatusSatim Castillo NPPOINT OF CARE TEST ENTER/EDIT ORDERABLESFinal Result * Microalbumin / creatinine, urine ratio (02/20/2024 2:47 PM EST)ComponentValue Ref RangeTest MethodAnalysis TimePerformed AtPathologist SignatureCREATININE, RANDOM ZQYZO23913 - 320 mg/dLQUESTALBUMIN, URINE0.7See Note: mg/dLQUEST Comment: Reference Range: Reference Range Not established ALBUMIN/CREATININE RATIO, RANDOM URINE5<30 mg/g creatQUESTComment: The ADA defines abnormalities in albumin excretion as follows: Albuminuria Category ?Result (mg/g creatinine) Normal to Mildly increased <30 Moderately increased ? 30-299 Severely increased > OR = 300 The ADA recommends that at least two of three specimens collected within a 3-6 month period be abnormal before considering a patient to be within a diagnostic category. Specimen (Source)Anatomical Location / LateralityCollection Method / Volume Collection TimeReceived TimeUrineUrine specimen obtained by clean catch procedure / Bijtjtq3802/20/2024 2:47 PM EST02/20/2024 2:47 PM EST Narrative Resulting Agency Comment Performing Organization Information ?Site ID: QPT ?Name: [facility] ?Address: [address] [place] [address], [address] [place] [phone] ?Director: Curtis Lyons MD Authorizing ProviderResult TypeResult StatusSatim Castillo KIM URINE ORDERABLES Final ResultPerforming OrganizationAddressCity/State/ZIP CodePhone Number QUEST * Color [employer] - OU - Both Eyes (12/02/2020 12:00 PM EDT)Anatomical RegionLateralityModalityHeadFundus PhotographySpecimen (Source)Anatomical Location / LateralityCollection Method / VolumeCollection TimeReceived Time 12/02/2020 12:00 PM EDT Narrative 12/02/2020 12:00 PM EDT PERFORMED AT [facility] LOCATION:[id number] [facility] Procedure Note CONVERSION, GENERIC - 06/29/2022 PERFORMED AT [facility] LOCATION:[id number] [facility] Authorizing ProviderResult TypeResult StatusChristy Naty Galarza NPCARONDELET HEALTH PHOTOGRAPHYFinal Result from Last 3 Months or Most Recently Relevant to Health Maintenance Insurance MemberSubscriberPlan / Payer (Effective 2023-Present)Name:Yang Card Relation to Subscriber:SelfName:Yang Card Payer ID:Not on file Type:Not on file Address: [place] [phone] Care Teams Team MemberRelationshipSpecialtyStart DateEnd Date Bernie Adam MD [address] [place] [address] PCP - GeneralFamily Medicine08/01/22
--- OUTSIDE RECORDS SUMMARY | 2025-01-15 14:21 | XMS_ITS | CCD ---
Author Organization [facility] Care Team Providers Care Specialty Person Name Role Phone Unavailable Primary Care Provider Unavaileder e MISC, DOCTOR Primary Care Unavailable MATTEVI, ARMANDO Admitting Unavailable MATTEVI, ARMANDO Consulting Unavailable BIPIN ARMANDO Attending Unavailable Rupesh Ulrich Consulting Unavailable Jeannine Evangelista Primary Care Provider Tonja KIM - Jeannine CASH Primary Care P roluis manuel Bernie Adam MD Unavailable [phone] Bernie Adam MD Primary Care Provider EVANS [...] JEANNINE A Primary Care Unavailab le CRISTIAN, ALI F O Referring Unavailable EVANGELISTA, JEANNINE [...] MONY Attending Unavailable LIZZETH, ALLEY Referring Unavailable Giedraitis , Ever Gonzalez Attending Unavailable Giedraitis , Ever Gonzalez Attending Unavailable Giedraitis , Ever Gonzalez Attending Unavailable Giedraitis , Ever Gonzalez Attending Unavailable Medications Current Medications MedicationDrug Class(es)DatesSig (Normalized)Sig (Original)allopurinol 100 mg oral tablet (20 sources)Xanthine Oxidase InhibitorStart: 03-12-2024 End: 98-54-0147vins 1 tablet by mouth in the morningallopurinol (Zyloprim) 100 MG tablet Indications: 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 TAKE 1 TABLET IN THE MORNING 90 tablet 1 09/15/2023 Activeamiodarone hydrochloride 200 mg oral tablet (20 sources)AntiarrhythmicStart: 51-80-4806aezahcyjav (Pacerone) 200 MG tablet Oral for 30 Days 04/24/2024 ActiveStart: 90-17-2527icsu 1 tablet by mouth once dailyamiodarone (CORDARONE) 200 MG tablet Take 1 tablet by mouth daily 30 tablet 1 02/23/2024 Activeamitriptyline hydrochloride 10 mg oral tablet (20 sources)Tricyclic AntidepressantStart: 07-18-2023 End: 93-75-3493thew 1 tablet by mouth at bedtimeamitriptyline (Elavil) 10 MG tablet Indications: Insomnia, unspecified type , Lumbar radiculopathy Take 1 tablet (10 mg) by mouth at bedtime 90 tablet 07/09/2024 Activeamoxicillin 875 mg / clavulanate 125 mg oral tablet (11 sources)Penicillin-class AntibacterialStart: 05-20-2024 End: 30-21-9524rbpx 1 tablet by mouth in the morningamoxicillin-clavulanate (Augmentin) 875-125 MG tablet Indications: Non-recurrent acute suppurative o titis media of left ear without spontaneous rupture of tympanic membrane Take 1 tablet (875 mg) by mouth in the morning and 1 tablet (875 mg) before bedtime. Do all this for 7 days. 14 tablet 05/20/2024 05/27/2024 ActiveStart: 12-26-2023 End: 35-81-8625odhk 1 tablet by mouth in the morningamoxicillin-clavulanate (Augmentin) 500-125 MG tablet Indications: Acute right otitis media Take 1 t ablet (500 mg) by mouth in the morning and 1 tablet (500 mg) before bedtime. Do all this for 10 days. 20 tablet 12/26/2023 01/05/2024 Expiredapixaban 5 mg oral tablet (20 sources)Factor Xa InhibitorStart: 04-04-2023 End: 25-25-1905nfxt 1 tablet by mouth in the morningapixaban (Eliquis) 5 MG tablet Indications: Paroxysmal atrial fibrillation (HCC) Take 1 tablet (5 mg) by mouth in the morning and 1 tablet (5 mg) before bedtime. 180 tablet 1 07/09/2024 ActiveStart: 01-22-2020 End: 68-67-7322fehn 1 tablet by mouth twice dailyapixaban (ELIQUIS) 5 MG TABS tablet Take 1 tablet by mouth 2 times daily for 14 days 28 tablet 0 09/16/2020 09/30/2020 ActiveEliquis 5 MG tablet every 12 (twelve) hours. 0 Active atorvastatin 10 mg oral tablet (20 sources)HMG-CoA Reductase InhibitorStart: 12-13-2023 End: 98-17-6929nzzn 1 tablet by mouth in the morningatorvastatin (Lipitor) 10 MG tablet Indications: Other hyperlipidemia Take 1 tablet (10 mg) by mouth in the morning. 90 tablet 3 07/09/2024 ActiveStart: 05-03-5269xernqhvrpodp (Lipitor) 10 MG tablet Indications: Other hyperlipidemia (CMS/HCC) TAKE 1 TABLET IN THE MORNING 90 tablet 1 06/16/2023 ActiveStart: 27-35-9831krnsedfimisi (Lipitor) 10 MG tablet Indications: Other hyperlipidemia (CMS/HCC) TAKE 1 TABLET IN THE MORNING 90 tablet 0 12/26/2022 ActiveBioflavonoid Products (VITAMIN C PLUS PO) (20 sources)Bioflavonoid Products (VITAMIN C PLUS PO) Take by mouth Active clindamycin 300 mg oral capsule (2 sources)Lincosamide AntibacterialStart: 10-11-2023 End: 42-98-3699ufab 1 capsule by mouth in the morning, then take 1 capsule by mouth in the evening, then take 1 capsule by mouth at bedtimeclindamycin (Cleocin) 300 MG capsule Indications: Dental abscess Take 1 capsule (300 mg) by mouth in the morning and 1 capsule (300 mg) in the evening and 1 capsule (300 mg) before bedtime. Do all this for 10 days. 30 capsule 10/11/2023 10/21/2023 Hxwrvv38 hr dextromethorphan hydrobromide 30 mg / guaiFENesin 600 mg extended release oral tablet (1 source)Uncompetitive T-uloxut-S-aspartate Receptor Antagonist, Sigma-1 AgonistStart: 05-23-2024 End: 52-27-2903ehfr 1 tablet by mouth in the morning, then take 1 tablet by mouth every twelve hours at bedtimeDextromethorphan-guaiFENesin (Mucinex DM) 30- 600 MG tablet sustained-release 12 hour Indications: Acute cough Take 1 tablet by mouth in the morning and 1 tablet before bedtime. Do all this for 10 days. 28 tablet 05/23/2024 06/02/2024 Activefinasteride 5 mg oral tablet (12 sources)5-alpha Reductase InhibitorStart: 33-21-1401aksp 1 tablet by mouth once dailyfinasteride (Proscar) 5 MG tablet Indications: Benign prostatic hyperplasia with lower urinary tract symptoms, symptom details unspecified Take 1 tablet (5 mg) by mouth Daily Do not crush, chew, or split. 90 tablet 1 09/18/2024 Activegabapentin 300 mg oral capsule (20 sources)Anti-epileptic AgentStart: 24-73-6868katv 1 capsule by mouth in the morninggabapentin (Neurontin) 300 MG capsule Take 300 mg by mouth in the morning and 300 mg before bedtime. 01/31/2024 ActivehydroCHLOROthiazide 12.5 mg / losartan potassium 50 mg oral tablet (20 sources)Thiazide Diuretic, Angiotensin 2 Receptor BlockerStart: 09-25-2023 End: 23-46-4392uynn 1 tablet by mouth in the morninglosartan-hydroCHLOROthiazide (Hyzaar) 50-12.5 MG tablet Indications: Primary hypertension Take 1 tablet by mouth in the morning. 90 tablet 1 07/09/2024 ActiveStart: 27-12-0430hrjn 1 tablet by mouth in the morninglosartan-hydroCHLOROthiazide (Hyzaar) 50-12.5 MG tablet Indications: Primary hypertension (CMS/HCC)Take 1 tablet by mouth in the morning. 90 tablet 0 07/28/2022 ActiveStart: 60-22-3103obaydeic- hydroCHLOROthiazide (HYZAAR) 50-12.5 MG per tablet Indications: Essential hypertension TAKE 1 TABLET DAILY 90 tablet 3 01/26/2022 Active3 ml insulin glargine 100 unt/ml pen injector (2 sources)Insulin AnalogStart: 47-19-7230rjjgpun glargine (LANTUS;BASAGLAR) 100 UNIT/ML injection pen Inject 10 Units into the skin 2 times daily 0 12/29/2019 ActiveLactobacillus Rhamnosus, GG, (CULTURELLE PO) (6 sources)Lactobacillus Rhamnosus, GG, (CULTURELLE PO) Take by mouth 0 Active metFORMIN hydrochloride 500 mg oral tablet (20 sources)BiguanideStart: 11-20-2023 End: 38-76-4720ycll 1 tablet by mouth in the morningmetFORMIN (Glucophage) 500 MG tablet Indications: Type 2 diabetes mellitus with diabetic peripheral angiopathy without gangrene (HCC) Take 1 tablet (500 mg) by mouth in the morning and 1 tablet (500 mg) in the evening. Take with meals. 180 tablet 1 07/09/2024 ActiveStart: 57-18-3886ijjEHURRR (Glucophage) 500 MG tablet Indications: Type 2 diabetes mellitus with diabetic peripheralangiopathy without gangrene (CMS/HCC) TAKE 1 TABLET IN THE MORNING AND 1 TABLET IN THE EVENING WITHMEALS 180 tablet 09/13/2023 Activemethocarbamol 500 mg oral tablet (12 sources)Muscle RelaxantStart: 83-30-1627ertj 1 tablet by mouth every eight hours as neededmethocarbamol (Robaxin) 500 MG tablet Take 500 mg by mouth every 8 (eight) hours if needed 09/11/2024 Activemetoprolol tartrate 50 mg oral tablet (20 sources)beta-Adrenergic BlockerStart: 07-09-2024 End: 97-73-3235cqxi 1 tablet by mouth in the morningmetoprolol tartrate (Lopressor) 50 MG tablet Indications: Primary hypertension , Paroxysmal atrial f ibrillation (HCC) Take 1 tablet (50 mg) by mouth in the morning and 1 tablet (50 mg) before bedtime. 180 tablet 1 07/09/2024 ActiveStart: 43-27-8127gbpp 1 tablet by mouth twice dailymetoprolol tartrate (LOPRESSOR) 25 MG tablet Take 1 tablet by mouth 2 times daily 30 tablet 02/23/2024 ActiveStart: 06-75-2083bdle 40-49.9 tablets by mouth twice dailymetoprolol tartrate (LOPRESSOR) 25 MG tablet Indications: Permanent atrial fibrillation (HCC) , Chronic anticoagulation , Essential hypertension , Type 2 diabetes mellitus with diabetic nephropathy, w ithout long-term current use of insulin (HCC) , History of COVID-19 , Obesity, Class III, BMI 40-49.9 (morbid obesity) Take 2 tablets by mouth 2 times daily 90 tablet 3 02/05/2024 ActiveStart: 09-15-2023 End: 42-40-7809rbkr 0.5 tablet by mouth in the morning, then take 0.5 tablet by mouth at bedtime, then take 0.5 tablet by mouth in the morningmetoprolol tartrate (Lopressor) 25 MG tablet Indications: Primary hypertension (CMS/HCC) Take 0.5 tablets (12.5 mg) by mouth in the morning and 0.5 tablets (12.5 mg) before bedtime. Taking half a tablet in the morning and evening.. 90 tablet 1 09/15/2023 02/20/2024 Discontinued (Med list cleanup)Start: 32-02-9064mybe 0.5 tablet by mouth twice dailymetoprolol tartrate (LOPRESSOR) 25 MG tablet Take 0.5 tablets by mouth 2 times daily 180 tablet 3 03/10/2020 ActiveStart: 01-22-2020 take 36-36.9 tablets by mouth twice dailymetoprolol tartrate (LOPRESSOR) 25 MG tablet Indications: Persistent atrial fibrillation (HCC) , SOB (shortness of breath) , Fluid retention , Essential hypertension , Other specified diabetes mellitus with other specified complication, unspecified whether fur blower insulin use ([facility]) , Class 2 obesity with body mass index (BMI) of 36.0 to 36.9 in adult, unspecified obesity type, unspecified whether serious comorbidity present TAKE 1 TABLET BY MOUTH TWICE DAILY 180 tablet 3 01/22/2020 Active metoprolol tartrate (Lopressor) 25 MG tablet every 12 (twelve) hours. 0 Active omeprazole 20 mg delayed release oral capsule (20 sources)Proton Pump InhibitorStart: 06-10-2024 End: 82-09-6176mloo 1 capsule by mouth before mealtimeomeprazole (PriLOSEC) [address] capsule Indications: Gastroesophageal reflux disease without esophagitis Take 1 capsule (20 mg) by mouth in the morning. Take before meals. Do not crush or chew. 90 capsule 1 07/09/2024 ActiveStart: 43-85-7246tfrzbuekpr (PriLOSEC) [address] capsule Indications: Gastroesophageal reflux disease without esophagitis TAKE 1 CAPSULE EVERY MORNING BEFORE A MEAL 90 capsule 1 12/11/2023 Active polymyxin b 83409 unt/ml / trimethoprim 1 mg/ml ophthalmic solution (4 sources)Dihydrofolate Reductase Inhibitor Antibacterial, Polymyxin-class AntibacterialStart: 05-20-2024 End: 73-73-4655ovprsafbetap-polymyxin b (Polytrim) ophthalmic solution Indications: Acute bacterial conjunctivitisof both eyes Administer 1 drop into affected eye(s) in the morning and 1 drop at noon and 1 drop inthe evening and 1 drop before bedtime. Do all this for 7 days. 10 mL 05/20/2024 05/27/2024 Active rOPINIRole 1 mg oral tablet (20 sources)Nonergot Dopamine AgonistStart: 27-78-3695omud 1.5 tablets by mouth at bedtimerOPINIRole (Requip) 1 MG tablet Indications: Restless Leg Syndrome Take 1.5 tablets (1.5 mg) by mouth at bedtime 135 tablet 1 07/09/2024 Active Start: 04-04-2023 End: 73-57-8535gfuw 1 tablet by mouth at bedtimerOPINIRole (Requip) 1 MG tablet Indications: Restless legs syndrome Take 1 tablet (1 mg) by mouth at bedtime 90 tablet 1 01/31/2024 07/09/2024 Discontinued (Reorder)Start: 10-04-2022 End: 71-41-9311bhcu 1 tablet by mouth at bedtimerOPINIRole (Requip) 1 MG tablet Indications: Restless legs syndrome Take 1 tablet (1 mg) by mouth at bedtime. 90 tablet 1 10/04/2022 04/02/2023 ActiveStart: 88-23-7495babj 1 tablet by mouth once daily, then take 1 tablet by mouth once dailyrOPINIRole (REQUIP) 0.25 MG tablet Take 1 tablet by mouth daily Take 1 1/2 daily 09/11/2020 Active3 ml sodium chloride 9 mg/ml injection (3 sources)Start: 02-12-20200.9 % sodium chloride infusionStart: 02-12-2020 sodium chloride flush 0.9 % injection 10 mLtamsulosin hydrochloride 0.4 mg oral capsule (20 sources)alpha-Adrenergic BlockerStart: 03-12-2024 End: 91-45-9317npxh 1 capsule by mouth every twenty-four hours at bedtime tamsulosin (Flomax) 0.4 MG 24 hr capsule Indications: Benign prostatic hyperplasia with nocturia Take 1 capsule (0.4 mg) by mouth at bedtime 90 capsule 1 07/09/2024 ActiveStart: 94-72-5185qwtpaaperz (Flomax) 0.4 MG 24 hr capsule Indications: Benign prostatic hyperplasia with nocturia TAKE 1 CAPSULE IN THE MORNING 90 capsule 1 09/15/2023 ActiveStart: 12-02-2022 End: 44-13-7700sxlb 1 capsule by mouth every twenty-four hours in the morning tamsulosin (Flomax) 0.4 MG 24 hr capsule Indications: Benign prostatic hyperplasia with nocturia Take 1 capsule (0.4 mg) by mouth in the morning. 90 capsule 1 12/02/2022 05/31/2023 ActiveTirzepatide-Weight Management (Zepbound) 2.5 MG/0.5ML solution auto-injector (18 sources)Start: 07-09-2024 End: 47-07-6107esgozg 2.5 mg by subcutaneous injection every weekTirzepatide- Weight Management (Zepbound) 2.5 MG/0.5ML solution auto-injector Indications: POOL (obstructive sleep apnea) Inject 2.5 mg under the skin 1 (one) time per week 2 mL 1 07/09/2024 09/18/2024Discontinued (Alternate therapy)Start: 07-09-2024 inject 2.5 mg by subcutaneous injection every weekTirzepatide-Weight Management (Zepbound) 2.5 MG/0.5ML solution auto-injector Indications: POOL (obstructive sleep apnea) Inject 2.5 mg under the skin 1 (one) time per week 2 mL 1 07/09/2024 ActivetiZANidine 4 mg oral tablet (5 sources)Central alpha-2 Adrenergic AgonistStart: 46-20-9874bdyd 1 tablet by mouth every eight hours for muscle spasmstiZANidine (Zanaflex) 4 MG tablet Indications: Acute left-sided low back pain with left-sided sciatica Take 1 tablet (4 mg) by mouth every 8 (eight) hours if needed for muscle spasms for up to 5 days. 15 tablet 0 11/01/2022 ActiveVITAMIN D, CHOLECALCIFEROL, PO (20 sources)VITAMIN D, CHOLECALCIFEROL, PO ActiveVITAMIN D, CHOLECALCIFEROL, PO Vitamin D ActiveVITAMIN D, CHOLECALCIFEROL, PO Vitamin D 0 Active Completed/Discontinued Medications MedicationDrug Class(es)DatesSig (Normalized)Sig (Original)acetaminophen 325 mg / HYDROcodone bitartrate 5 mg oral tablet (20 sources)Opioid AgonistStart: 06-28-2023 End: 47-95-9876udep 1 tablet by mouth twice daily as neededHYDROcodone- acetaminophen ([place]) 5-325 MG tablet Take 1 tablet by mouth 2 (two) times a day as needed 06/28/2023 02/20/2024 Discontinued (Therapy completed)[id number] 200 actuat albuterol 0.09 mg/actuat metered dose inhaler (12 sources)beta2-Adrenergic AgonistStart: 12-26-2023 End: 17-26-9172affb 2 puff(s) by inhalation every four hours for wheezing albuterol HFA 90 mcg/act inhaler Indications: Bronchitis Inhale 2 puffs every 4 (four) hours if needed for wheezing 18 g 12/26/2023 02/20/2024 Discontinued baclofen 10 mg oral tablet (19 sources)gamma-Aminobutyric Acid-ergic AgonistStart: 10-04-2023 End: 10-27-7264zyyd 1 tablet by mouth in the morning, then take 1 tablet by mouth in the evening, then take 1 tablet by mouth at bedtimebaclofen (Lioresal) 10 MG tablet Take 10 mg by mouth in the morning and 10 mg in the evening and 10 mg before bedtime. 10/04/2023 02/20/2024 Discontinued (Therapy completed) benzonatate 100 mg oral capsule (5 sources)Non-narcotic AntitussiveStart: 12-28-2023 End: 09-35-5114uarj 1 capsule by mouth three times daily as needed for cough benzonatate (Tessalon Perles) 100 MG capsule Indications: Bronchitis Take 1 capsule (100 mg) by mouth 3 (three) times a day as needed for cough for up to 7 days Do not crush or chew. 20 capsule 12/29/2023 01/05/2024 cyclobenzaprine hydrochloride 10 mg oral tablet (19 sources)Muscle RelaxantStart: 09-20-2023 End: 18-26-8390pmfg 1 tablet by mouth three times daily as neededcyclobenzaprine (Flexeril) 10 MG tablet Take 10 mg by mouth 3 (three) times a day as needed 09/20/2023 02/20/2024 Discontinued (Therapy completed)digoxin 0.125 mg oral tablet (3 sources)Cardiac GlycosideStart: 01-22-2020 End: 48-78-7125clxf 36-36.9 tablets by mouth once dailydigoxin (LANOXIN) 125 MCG tablet Indications: Persistent atrial fibrillation (HCC) , SOB (shortnessof breath) , Fluid retention , Essential hypertension , Other specified diabetes mellitus with other specified complication, unspecified whether fpc insulin use (HCC) , Class 2 obesity with body mass index (BMI) of 36.0 to 36.9 in adult, unspecified obesity type, unspecified whether serious comorbidity present Take 1 tablet by mouth daily 90 tablet 3 01/22/2020 02/12/2020 Discontinued (StopTaking at Discharge)2 ml fentaNYL 0.05 mg/ml injection (1 source)Opioid AgonistStart: 02-12-2020 End: 94-60-7101euphjBRW (SUBLIMAZE) dqkxhnypg12 hr guaiFENesin 600 mg extended release oral tablet (6 sources)Start: 01-01-2024 End: 79-13-1836zwsw 2 tablets by mouth in the morning, then take 2 tablets by mouth every twelve hours at bedtimeguaiFENesin (Mucinex) 600 MG 12 hr tablet Indications: Bronchitis Take 2 tablets (1,200 mg) by mouth in the morning and 2 tablets (1,200 mg) before bedtime. Do not crush, chew, or split.. 120 tablet 11 01/01/2024 02/20/2024 Discontinued (Therapy completed)3 ml insulin lispro 100 unt/ml pen injector (3 sources)Insulin AnalogStart: 12-29-2019 End: 28-75-4814jugzcvb lispro, 1 Unit Dial, 100 UNIT/ML SOPN Inject 2-10 Units into the skin 0 12/29/2019 02/12/2020 Discontinued (LIST CLEANUP)losartan potassium 25 mg oral tablet (1 source)Angiotensin 2 Receptor BlockerStart: 01-30-2020 End: 39-03-2823zkmm 0.5 tablet by mouth once dailylosartan (COZAAR) 25 MG tablet Take 0.5 tablets by mouth daily 45 tablet 1 01/30/2020 02/12/2020 Discontinued (LIST CLEANUP)2 ml midazolam 1 mg/ml injection (2 sources)BenzodiazepineStart: 02-12-2020 End: 48-36-6901amnkcnpch (VERSED) injectionpredniSONE 10 mg oral tablet (3 sources)Start: 12-29-2023 End: 21-52-4407yovo 1 tablet by mouth in the morningpredniSONE (Deltasone) 10 MG tablet Indications: Acute cough Take 1 tablet (10 mg) by mouth in the morning and 1 tablet (10 mg) before bedtime. Do all this for 5 days. 10 tablet 12/29/2023 12/29/2023iscontinued Problems Active Problems Problem ClassificationProblemDateDocumented DateEpisodic/ChronicCardiac dysrhythmias (20 sources)Unspecified atrial fibrillation; 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: [Persistent atrial fibrillation]Onset: 806068-56-3304TrmdneeAhcikvj obstructive pulmonary disease and bronchiectasis (6 sources)Bronchitis; 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: [Bronchitis, not specified as acute or chronic]64-67-6165CrywuygcIgxglemd mellitus with complications (12 sources)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 diabetes mellitus; 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: [Type 2 diabetes mellitus with diabetic nephropathy]Onset: 079753-37-7785Crghczy Diabetes mellitus without complication (20 sources)Diabetes mellitus; 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: [Type 2 diabetes mellitus well controlled]Onset: 90-27-8042TeyednyRkxqrzzni of lipid metabolism (20 sources)Hyperlipidemia; 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: [Hyperlipidemia, unspecified]Onset: 12-12-2018 Resolved: 063797-80-5541NubqokzDdisrunfhm disorders (20 sources)Gastroesophageal reflux disease without esophagitis; 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: [Gastro-esophageal reflux disease without esophagitis]Onset: 07-18-2022 00-29-6004JeajglnHbisfnvtl hypertension (20 sources)Essential hypertension; 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: [Essential (primary) hypertension]Onset: 987975-72-5989EfiwcriPsgngojb of neck of femur (hip) (1 source)Stress fracture, left femur, initial encounter for fracture; 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: [Stress fracture, left femur, initial encounter for fracture] Onset: 82-03-6538FygkltgnPpsy and other crystal arthropathies (20 sources)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; 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: [Idiopathic chronic gout, left ankle and foot, without tophus (tophi)]Onset: 533353-45-7472TiihztrDoioshrepyv of prostate (6 sources)Benign prostatic hyperplasia; 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: [Benign prostatic hyperplasia with lower urinary tract symptoms]51-93-8162GsnslulHsmgfrakzpgz; infection of eye (except that caused by tuberculosis or sexually transmitteddisease) (2 sources)Acute infectious conjunctivitis; 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: [Unspecified acute conjunctivitis, bilateral]17-85-1981PpqofbmfQwofvshembh deficiencies (20 sources)Vitamin D deficiency; 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: [Vitamin D deficiency, unspecified]Onset: 777119-66-0364OvdguivRfqhewppifqnud (20 sources)Bilateral osteoarthritis of knees; 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: [Bilateral primary osteoarthritis of knee]Onset: 136365-40-2848EixznatPdxmj aftercare (2 sources)Long-term current use of anticoagulant; 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: [halfway (current) use of anticoagulants]52-73-0728AryftptvWmbsy aftercare (1 source)halfway (current) use of anticoagulants; Translations: [halfway (current) use of anticoagulants]Onset: 79-32-6504RwkfxukqWprvm connective tissue disease (20 sources)Artificial knee joint present; Translations: [Presence of unspecified artificial knee joint]Onset: 052665-05-7418XbhhpxmCtjal connective tissue disease (20 sources)History of total knee arthroplasty; Translations: [Presence of left artificial knee joint]Onset: 425743-08-1091IotxowiNjhwf connective tissue disease (1 source)Pain in bilateral legs; Translations: [Pain in right leg]EpisodicOther connective tissue disease (7 sources)Pain of left thigh; Translations: [Pain in left thigh]03-23-2023 EpisodicOther connective tissue disease (4 sources)Pain in toe; Translations: [Pain in right toe(s)]47-94-0041Ojoolomg Other connective tissue disease (8 sources)Other symptoms and signs involving the musculoskeletal system; Translations: [Other musculoskeletalsymptoms referable to limbs]08-30-2024 EpisodicOther connective tissue disease (2 sources)Pain in bilateral legs; Translations: [Pain in both lower extremities]Other diseases of kidney and ureters (1 source)Abnormal renal function; Translations: [Disorder of kidney and ureter, unspecified]80-84-3240NzycjyezDivrx hereditary and degenerative nervous system conditions (20 sources)Restless legs; Translations: [Restless legs syndrome]Onset: 621726-30-4255KddovjdJtqbc infections; including parasitic (20 sources)Post-viral disorder; Translations: [Orxp-PCEWK-85 condition]Onset: 076967-15-9894HrokoegVbjnf infections; including parasitic (2 sources)Personal history of other infectious and parasitic diseases; Translations: [History of COVID-19]43-49-3250UxuybktqHewrg inflammatory condition of skin (20 sources)Psoriasis; Translations: [Psoriasis, unspecified]Onset: 06-26-2017 07-32-0221OprycaaGowci lower respiratory disease (3 sources)Shortness of breath; Translations: [SHORTNESS OF BREATH]Onset: 38-25-0167XrtbnrybTrltu lower respiratory disease (4 sources)Dyspnea; Translations: [Shortness of breath]EpisodicOther lower respiratory disease (2 sources)Cough; Translations: [Acute cough]24-32-9569UuomqqahRmnou nervous system disorders (20 sources)Difficulty walking; Translations: [Difficulty in walking, not elsewhere classified]Onset: 702155-18-0038DskbjrrQejqk nutritional; endocrine; and metabolic disorders (4 sources)Obesity; Translations: [Obesity, unspecified]ChronicOther nutritional; endocrine; and metabolic disorders (20 sources)Body mass index 40+ - severely obese; Translations: [Morbid (severe) obesity due to excess calories]Onset: 658704-97-4061VwhcxzoCxibv nutritional; endocrine; and metabolic disorders (4 sources)Obesity caused by energy imbalance; Translations: [Morbid (severe) obesity due to excess calories]16-69-4342RwijejdFcqdx nutritional; endocrine; and metabolic disorders (1 source)Morbid (severe) obesity due to excess calories; Translations: [Morbid (severe) obesity due to excess calories]Onset: 78-82-0389TvxbgouAamlb screening for suspected conditions (not mental disorders or infectious disease) (2 sources)Patient encounter status; Translations: [Encounter for screening for malignant neoplasm of prostate]51-42-5081CokenrmmXpnoa skin disorders (2 sources)Dystrophia unguium; Translations: [Nail dystrophy]39-56-4058Vmmcopfm Otitis media and related conditions (4 sources)Acute right otitis media; Translations: [Otitis media, unspecified, right ear]35-51-1538UtdhmcemGqavlofmrk and visceral atherosclerosis (20 sources)Peripheral vascular disease; Translations: [Peripheral vascular disease, unspecified]Onset: 040682-95-2127QjimqjuRlqbhpbu codes; unclassified (6 sources)Obstructive sleep apnea syndrome; Translations: [Obstructive sleep apnea (adult) (pediatric)]09-47-0127SygsdjgChgwgcsm codes; unclassified (3 sources)Body fluid retention; Translations: [Fluid retention]EpisodicResidual codes; unclassified (4 sources)Insomnia; Translations: [Insomnia, unspecified]12-87-0471Ujtfobnk Residual codes; unclassified (2 sources)Colon cancer screening declined; Translations: [Procedure and treatment not carried out because of patient's decision for unspecified reasons] 22-38-3592VsjlmuqeCdlxemtd codes; unclassified (4 sources)Localized edema; Translations: [Localized edema]70-13-3910Zkjlmihd Spondylosis; intervertebral disc disorders; other back problems (20 sources)Acute low back pain; Translations: [Acute left-sided low back pain without sciatica]Onset: 929990-18-3824EfqpgfcdDvpqtpb and strains (1 source)Strain of muscle of left thigh; Translations: [Strain of unspecified muscles, fascia and tendons atthigh level, left thigh, subsequent encounter] 74-10-4440JaprvoxgNgkzoxwodqjk (1 source)COVID-19; Translations: [COVID-19]Onset: 24-00-5974Cbbetawvyxvt (1 source)Permanent atrial fibrillation; Translations: [Permanent atrial fibrillation]Onset: 74-79-9238Zrbwnkgiydxg (1 source)Personal history of COVID-19; Translations: [Personal history of COVID-19]Onset: 02-05-2024 Past or Other Problems Problem ClassificationProblemDateDocumented DateEpisodic/ChronicDiabetes mellitus without complication (20 sources)Impaired fasting glycemia; Translations: [Impaired fasting glucose] Onset: 124069-79-2037LhxiytlbGjsjnxgzz of teeth and jaw (2 sources)Dental abscess; Translations: [Periapical abscess without sinus] 67-73-2629UvkgaafrNrmurtd (20 sources)Tinea pedis; Translations: [Tinea pedis]Onset: EpisodicOther acquired deformities (20 sources)Acquired unequal leg length; Translations: [Unequal limb length (acquired), unspecified site]Onset: 334583-41-1388TjtmqvhvOcwqq [employer] infection and poliomyelitis (20 sources)H/O: poliomyelitis; Translations: [Personal history of poliomyelitis]Onset: 880002-15-4073HrwtozxnSecgh connective tissue disease (20 sources)Muscle weakness of limb; Translations: [Other symptoms and signs involving the musculoskeletal system]Onset: 022902-83-4742LjnrzanxHnxoq nervous system disorders (20 sources)Numbness; Translations: [Anesthesia of skin]Onset: 06-16-2023 92-34-3318OcrfvwzoXdnnn nervous system disorders (20 sources)Paresthesia; Translations: [Paresthesia of skin]Onset: 06-16-2023 54-26-3097YnjlrzsdMnpzl non-traumatic joint disorders (20 sources)Hip pain; Translations: [Pain in left hip]Onset: 10-25-2022 54-56-2191ThavplgiObycb upper respiratory disease (20 sources)Pain in face; Translations: [Other specified disorders of nose and nasal sinuses]Onset: 12-12-2018 Resolved: 580832-83-6002ApmnzihkRdxuszsgv (except that caused by tuberculosis or sexually transmitted disease) (20 sources)Other viral pneumonia; Translations: [Viral pneumonia]Onset: 12-16-2019 Resolved: 698663-68-3017MjlkwypmKojcpbez codes; unclassified (20 sources)Peripheral edema; Translations: [Edema, unspecified]Onset: 825665-59-2005JptjvsgcTwwlg infection (20 sources)Other specified viral infection; Translations: [COVID-19]Onset: 12-16-2019 Resolved: 629682-95-8181Qnlvzsiy Results Test NameValueInterpretationReference RangeFacilityLaboratory - Hematology and Cell countson 44-86-5594PpP9u (Bld) [Mass fraction]6.4 %[facility] Panel Informationon 50-29-0278Safktgrwflmitj and review of laboratory resultsNormal [facility] US LOWER EXTREMITY VENOUS DUPLEX BILATERALon 72-45-8650ZLSI US LOWER EXTREMITY VENOUS DUPLEX BILATERALEXAM: [facility] US LOWER EXTREMITY VENOUS DUPLEX BILATERAL HISTORY: [...] II, MD, PHD at 10-Jul-2024 09:19:12 AM [facility] TeleradiologyNormalNot AvailableXR CHEST 2 VIEWSon 28-99-3987SR CHEST 2 VIEWSExam: XR CHEST 2 VIEWS Reason for exam: Bilateral leg swelling, no chest complaints Prior comparative studies: None Findings: No consolidation or effusion is apparent. Pleural space is clear. Heart and mediastinum are unremarkable. IMPRESSION: 1. No acute abnormality identified. Dictated on: 07/09/2024 2:02 PM This report has been electronically signed and approved by the interpreting radiologist.NormalNot AvailableLaboratory - Hematology and Cell countson 30-39-5782KoV5s (Bld) [Mass fraction]6.3 %[facility] Panel Informationon 89-27-0469Oufdbgzlhvuoyx and review of laboratory resultsAbFormerly [facility] Ridge HealthEK 12 LeadOrdered By: Arianna Mascorro on 54-07-9792P-T Oohzecwv209 [facility] [employer] Work Phone: qRS Xaxgqdzi62 [facility] Work Phone: QTc Calculation (Bazett)451 msBon [facility] Work Phone: R [place]-23degreesBon [facility] Work Phone: T Uypo08ryrlzlsInj SecLIVELENZy Health Work Phone: Ventricular Svgk90CGBTht SecBrainjuicer Health Work Phone: Bon SecBrainjuicer [facility] Work Phone: EKG 12 Leadon 39-08-9174Ewpslo fibrillation Abnormal ECG ECG not diagnostic for Acute Coronary Syndrome; consider clinical findings When compared with ECG of 12-FEB-2020 08:26, Atrial fibrillation has replaced Sinus rhythm Confirmed by ARIANNA MASCORRO ([id number]) on 02/23/2024 10:09:04 [facility] Arianna Mascorro MD - 02/23/2024 Atrial fibrillation Abnormal ECG ECG not diagnostic for Acute Coronary Syndrome; consider clinical findings When compared with ECG of 12-FEB-2020 08:26, Atrial fibrillation has replaced Sinus rhythm Confirmed by ARIANNA MASCORRO ([id number]) on 02/23/2024 10:09:04 PM [facility] HealthAtrial Avzk886YHNQia Secours Mercy HealthQ-T Ophbhbvx181 msBon Secours Mercy HealthQRS Iyipkufc54 msBon Secours Mercy HealthQTc Calculation (Bazett)471 msBon Secours Mercy HealthR [place]-23degreesBon Secours Mercy HealthT [place]-19degreesBon Secours Mercy HealthVentricular Uhwj40NHUGpq Secours Mercy HealthNormal sinus rhythm with a short run of atrial tachycardia Nonspecific T wave abnormality Prolonged QT Abnormal ECG When compared with ECG of 23-FEB-2024 11:06, (unconfirmed) normal sinus rhythm with a short run of atrial tachycardia has replaced atrial fibrillation Nonspecific T wave abnormality now evident in Anterior leads Confirmed by ARIANNA MASCORRO ([id number]) on 02/23/2024 9:25:47 [facility] Arianna Mascorro MD - [...] on 02/23/2024 9:25:47 PM [facility] HealthBon Secours Mercy HealthAtrial Xrxj00EOWTyn Secours Mercy HealthP Qkxz91emsaquwXdr Secours Mercy HealthP-R Cdmjsagi369 msBon Secours Mercy HealthQ-T Abcrnyow361 msBon Secours Mercy HealthQRS Azkfpbqp01 msBon Secours Mercy HealthQTc Calculation (Eliana)426 msBon Secours Mercy HealthR [place] -25degreesBon Secours Mercy HealthT Dabg8bifjsmsYms [facility] Ventricular Qjdv00XMBOcn Secours Mercy HealthSinus bradycardia Otherwise normal ECG When compared with ECG of 23-FEB-2024 12:06, (unconfirmed) Previous ECG has undetermined rhythm, needs review Confirmed by ARIANNA MASCORRO ([id number]) on 02/23/2024 9:11:49 [facility] Arianna Mascorro MD - 02/23/2024 Sinus bradycardia Otherwise normal ECG When compared with ECG of 23-FEB-2024 12:06, (unconfirmed) Previous ECG has undetermined rhythm, needs review Confirmed by ARIANNA MASCORRO ([id number]) on 02/23/2024 9:11:49 PM [facility] SecInland Northwest Behavioral HealthBetaspring HealthSentara Princess Anne HospitalWee Web [facility] - DublinBetaspring Rqsokb42-fdeonrrmnclulq D3 [Mass/Vol] on 952406-bitbtbzvmmaifa D [Mass/Vol]36 ng/mL30 - 100 ng/mLNLiberty Hospital Comment on above:Vitamin D Status 25-OH Vitamin D: Deficiency: <20 ng/mL Insufficiency: 20 - 29 ng/mL Optimal: > or = 30 ng/mL For 25-OH Vitamin D testing on patients on D2-supplementation and patients for whom quantitation of D2 and D3 fractions is required, the QuestAssureD() 25-OH VIT D, (D2,D3), LC/MS/MS is recommended: order code 84592 (patients >2yrs). See Note 1 Note 1 For additional information, please refer to http://education.[employer].Yuenimei/faq/DZC993 (This link is being provided for informational/ educational purposes only.) Laboratory - Chemistry and Chemistry - challengeon 52-50-2320Kauzzlg [Mass/Vol] 4.1 g/dL3.6 - 5.1 g/dLNOMS HealthcareAlbumin/Globulin [Mass ratio]2.2 {ratio} NOMS HealthcareALP [Catalytic activity/Vol]72 U/L35 - 144 U/LNOMS HealthcareALT [Catalytic activity/Vol]13 U/L9 - 46 U/LNOMS HealthcareAST [Catalytic activity/Vol]16 U/L10 - 35 U/LNOMS HealthcareBilirubin [Mass/Vol]0.6 mg/dL0.2 - 1.2 mg/dLNOMS HealthcareCalcium [Mass/Vol]9.1 mg/dL8.6 - 10.3 mg/dLNOMS HealthcareChloride [Moles/Vol]102 mmol/L98 - 110 mmol/LNOMS HealthcareCO2 [Moles/Vol]27 mmol/L20 - 32 mmol/LNOMS HealthcareCreatinine [Mass/Vol]0.87 mg/dL 0.70 - 1.28 mg/dLNOMS HealthcareGFR/1.73 sq M.predicted among non-blacks MDRD (S/P/Bld) [Vol rate/Area]90 mL/min/{1.73_m2}> OR = 60 mL/min/1.33d1JBQP HealthcareGlobulin (S) [Mass/Vol]1.9 g/dLNOMS HealthcareGlucose [Mass/Vol]139 mg/xVSbiy97 - 99 mg/dLNOFL HealthcareComment on above: Fasting reference interval For someone without known diabetes, a glucose value >125 mg/dL indicates that they may have diabetes and this should be confirmed with a follow-up test. Potassium [Moles/Vol]4 mmol/L3.5 - 5.3 mmol/LNOMS HealthcareProstate specific Ag [Mass/Vol]0.33 ng/mL< OR = 4.00NOFL HealthcareComment on above:The total PSA value from this assay system is standardized against the WHO standard. The test result will be approximately 20% lower when compared to the equimolar-standardized total PSA (Abelardo Grasston). Comparison of serial PSA results should be interpreted with this fact in mind. This test was performed using the Siemens chemiluminescent method. Values obtained from different assay methods cannot be used interchangeably. PSA levels, regardless of value, should not be interpreted as absolute evidence of the presence or absence of disease. Protein [Mass/Vol]6 g/dLLow6.1 - 8.1 g/dLNOMS HealthcareSodium [Moles/Vol]141 mmol/L135 - 146 mmol/LNOMS HealthcareUrate [Mass/Vol]7.5 mg/dL4.0 - 8.0 mg/dL NOMS HealthcareComment on above:Therapeutic target for gout patients: <6.0 mg/dL Urea nitrogen [Mass/Vol]17 mg/dL7 - 25 mg/dLNOFL HealthcareUrea nitrogen/Creatinine [Mass ratio]SEE NOTE:[facility] HealthcareComment on above:Not Reported: BUN and Creatinine are within reference range. Laboratory - Hematology and Cell countson 83-00-3450AyB5j (Bld) [Mass fraction] 6.3 %HighNINFNOFL HealthcareComment on above:For someone without known diabetes, a hemoglobin A1c [...] of diabetes for children. Lipid 1996 panelon 99-86-9246Hurmvnwsumv [Mass/Vol]121 mg/dLNINF - 200 mg/dLNOFL HealthcareCholesterol in HDL [Mass/Vol]40 mg/dL> OR = 40NOCooper [facility] Hospital Cholesterol in LDL [Mass/Vol]53 mg/dLmg/dL (calc)[facility] HealthcareComment on above:Reference range: <100 Desirable range <100 mg/dL for primary prevention; <70 mg/dL for patients with CHD or diabetic patients with > or = 2 CHD risk factors. LDL-C is now calculated using the -Winifred calculation, which is a validated novel method providing better accuracy than the Friedewald equation in the estimation of LDL-C. SS et al. TANA. 2013;310(19): 2670-2823 (http://education.[employer].Yuenimei/faq/KVB879) Cholesterol non HDL [Mass/Vol]81 mg/dLNIParkwest Medical CenterComment on above:For patients with diabetes plus 1 major ASCVD risk factor, treating to a non-HDL-C goal of <100 mg/dL (LDL-C of <70 mg/dL) is considered a therapeutic option. Cholesterol.total/Cholesterol in HDL [Mass ratio]3 {ratio}[facility] Interpretation and review of laboratory resultsAbAscension St. [facility] Hospital Triglyceride [Mass/Vol]224 mg/dLHighNINF - 150 mg/dLMissouri Delta Medical CenterComment on above: If a non-fasting specimen was collected, consider repeat triglyceride testing on a fasting specimen if clinically indicated. Chantell et al. J. of Clin. Lipidol. 2015;9:129-169. Performing Organization Information Site ID: QPT Name: [facility] TE2 [facility] Address: [address] [place] [address], [address] [place], [place] [id number] Director: Curtis Lyons [facility] Centerroalbumin/Creatinine ratio panel (U)on 77-30-5303Ttxuhkx DL <= 20 mg/L (U) [Mass/Vol]0.7 mg/dLSee Note:[facility] HealthcareComment on above:Reference Range: Reference Range Not established Albumin/Creatinine (U) [Mass ratio]5NINFENCOMPASS HEALTH HealthcareComment on above: The ADA defines abnormalities in albumin excretion as follows: Albuminuria Category Result (mg/g creatinine) Normal to Mildly increased <30 Moderately increased 30-299 Severely increased > OR = 300 The ADA recommends that at least two of three specimens collected within a 3-6 month period be abnormal before considering a patient to be within a diagnostic category. Creatinine (U) [Mass/Vol]154 mg/dL20 - 320 mg/dLMissouri Delta Medical CenterPerforming Organization Information Site ID: QPT Name: [employer] [facility] Address: [address] [place] [address], [address] [place] [phone] Director: Curtis Lyons [facility] HospitalNo Panel Informationon 21-61-5925Qmyhwqoejjwkln and review of laboratory resultsAbAscension St. [facility] Hospital PATIENT UNABLE TO VOID; ADVISED TO RETURN FOR COLLECTION.[facility] Organization Information Site ID: QPT Name: [employer] [facility] Address: Jael Gil , [address] [place] [id number] Director: Curtis Lyons [facility] HospitalCardiac echo study ProcedureOrdered By: Arianna Mascorro on 64-93-7245Fk Root Index0.86 cm/m2Bon [employer] Work Phone: [phone] Root2.2 cmBon [employer] Work Phone: [phone] Sinus Valsalva3.3 cmBon [employer] Work Phone: [phone] Sinus Valsalva Index1.29 cm/m2Bon [employer] Work Phone: [phone] Aorta3.5 cmBon [employer] Work Phone: [phone] Aorta Index1.37 cm/m2Bon [employer] Work Phone: [phone] Cusp Mmode1.8 cmBon [employer] Work Phone: [phone] Mean Cbnwxmrc3ihGeCie [employer] Work Phone: [phone] Mean Velocity0.8 m/sBon [employer] Work Phone: [phone] Peak Gsgdyfli8cfEqMxc [employer] Work Phone: AV Peak Velocity1.2 m/sBon [employer] Work Phone: AV Velocity Ratio0.75Bon [employer] Work Phone: [phone] VTI18.4 cmBon [employer] Work Phone: Body surface area Derived from formula2.67 m2Bon [employer] Work Phone: E/E' Lateral4.69Bon [employer] Work Phone: EF BP55 %55 - 100 %Bon [employer] Work Phone: Est. RA Gjldqgic3byLdLsk SecWe[facility] Work Phone: Fractional Shortening 2D28 %28 - 44 %[facility] [employer] Work Phone: Interpretation and review of laboratory results AbnormalBon [employer] Work Phone: IVSd1.3 cmAbnormal0.6 - 1.0 cmCobre [facility] [employer] Work Phone: LA Area 2C26.6 cm2Bon [employer] Work Phone: LA Area 4C25.0 cm2Bon [employer] Work Phone: LA Major Axis7.3 cmCobre [facility] [employer] Work Phone: LA Minor Axis6.9 cmBon [employer] Work Phone: LA Volume BP78 lSRlqzkoaf51 - 58 mLCobre Valley Regional Medical Center [employer] Work Phone: LA Volume Index BP30 ml/m216 - 34 ml/m2Bon [employer] Work Phone: [phone] Volume Index MOD A2C33 ml/m216 - 34 ml/m2[facility] [employer] Work Phone: LA Volume Index MOD A4C27 ml/m216 - 34 ml/m2Bon [employer] Work Phone: LA Volume MOD A2C84 hMFggomntr54 - 58 mLCobre Valley Regional Medical Center [employer] Work Phone: LA Volume MOD A4C69 mPEhynqhfh01 - 58 mLCobre [facility] [employer] Work Phone: LV E' Lateral Ymbwjtvb73.30 cm/sBon [facility] [employer] Work Phone: LV EDV A2C74 mLCobre Valley [facility] Center [employer] Work Phone: LV EDV I9Z401 mLCobre [facility] [employer] Work Phone: LV EDV Index A2C29 mL/m2Bon [employer] Work Phone: LV EDV Index A4C40 mL/m2Bon [employer] Work Phone: LV Ejection Fraction A2C57 %Bon [employer] Work Phone: LV Ejection Fraction A4C52 %[employer] Work Phone: LV ESV A2C32 mLBon [employer] Work Phone: LV ESV A4C49 mLBon [employer] Work Phone: LV ESV Index A2C13 mL/m2Bon [employer] Work Phone: LV ESV Index A4C19 mL/m2Bon [employer] Work Phone: LV Mass 2D279.8 cEmncejwr32 - 224 gBon [employer] Work Phone: LV Mass 2D Azsau077.3 g/m249 - 115 g/m2Bon [employer] Work Phone: LV RWT Ratio0.44[employer] Work Phone: [phone] cm4.2 - 5.9 cmBon [employer] Work Phone: LVIDd Index2.11 cm/m2Bon [employer] Work Phone: OZZVn9.9 cmBon [employer] Work Phone: LVIDs Index1.52 cm/m2Bon [employer] Work Phone: LVOT Mean Xuktvcnf0maOuOht [employer] Work Phone: LVOT Peak Uucvheur9tsUoFka [employer] Work Phone: LVOT Peak Velocity0.9 m/sBon [employer] Work Phone: LVOT VTI14.4 cmBon [employer] Work Phone: LVOT:AV VTI Index0.78Bon [employer] Work Phone: OSGEk4.2 cmAbnormal0.6 - 1.0 cmBon [employer] Phone: [phone] E Velocity0.53 m/sBon [employer] Phone: MV E Wave Deceleration Tpbm148.0 msBon [employer] Phone: PV Max Velocity1.0 m/sBon [employer] Phone: PV Peak Yfvjilou8yiTnCjw [employer] Phone: [phone] [employer] Phone: Sinotubular Junction2.3 cmBon [employer] Phone: TR Max Velocity2.17 m/sBon [employer] Phone: TR Peak Jnywjvmy13vvOxYmmBig Data Partnership Phone: Bon [employer] Phone: Cardiac echo study Procedureon 87-91-7364Rxnr Ventricle: Low normal left ventricular systolic function [...] equal to 21 mm and decreases greater than50% during inspiration; therefore the estimated right atrial pressure is normal (~3 mmHg). IVC sizeis normal. Mitral Valve Valve structure is normal. [...] Details Image quality: adequate. No contrast was given.[facility] CPACSRadiology Study observation (narrative)[facility] Hospitalding Summaryon 74-11-1103Bsydof SummaryPARK CITY HOSPITALBase 64 WhkhkobbSLi1wKd+PGhlYWQ+ON6CLQNjO96wxWRknF8MB1bHTA3AOFROLHSPUG2PCO5anKY3ANhbP3Nx biAv [file] IGN (more content not included)...[facility] HospitalCoding Summaryon 02-18-3341Cphhei SummaryHTMLBase 64 AkakzumbUEw5rIw+PGhlYWQ+QO9JKGErE20evGWsrN1XU2wXJF2LXKCPXVMCJZ1EEI8ktEJ5FNoqI6Ty biAv [file] Y29 (more content not included)...[facility]ional Medical Centersent Formson 17-14-3699Jnkbzzx [id number]#1.00OTGTIFF [facility] - AndersonConsent Formson 29-60-9825Kabokdy Forms [id number]#1.00OTGTIFFNoMercy Health Perrysburg HospitalGR Postoperative Recordon 06-52-3386EOFQ Postoperative RecordMAGR Phase II Record Summary Primary Physician: DAVID AWAD DO Finalized Date/Time: 09/20/21 10:05:40 Pt. Name: ZAINA WINTERS /Sex: 1950 MALE Med Rec #: [id number] Physician: DAVID AWAD DO Financial #: [id number] Pt. Type: O Room/Bed: 229/1 Admit/Disch: 09/17/21 08:03:00 - 09/18/21 12:10:00 Institution: Phase II Case Times MAGR Pre-Care Text: Patient is free from s/s of injury. Patient remains free from compromised physical state related tosurgery or anesthesia. Patient comfort maintained. Patient/family verbalize [...] Signatures Signed By: Vianca Celaya RN 09/20/21 10:05[facility] - AndersonOutside Recordson 09-20-2021 Outside [id number]#1.00OTSelect Medical Specialty Hospital - CincinnatiProvider Orderson 59-41-1353Vjeopvcp Orders [id number]#1.00[facility] Provider [id number]#1.00OTSelect Medical Specialty Hospital - CincinnatiTelemetry Stripson 66-47-9721Zgguvlphb Strips [id number]#1.00[facility] Electronic Messagingon 73-91-9656Biafoiecnw Messaging--- --- --- --- --- --- --- --- --- From: Directtest (Dpcpka87), Directtest To: ZAINA WINTERS Sent: 09/19/21 04:18:10 AM EDT Subject: Discharge Summary Ready to View A summary regarding your recent visit is available in the Documents section of your Health Record.[facility].Auto Diff 1on 32-86-9439Prlz Kay %9 %Normal1-12[facility] HospitalComment on above:Performed By: #### [id number], [id number], [id number] #### [facility] (DEFAULT) [address] [place] [address] 63880Bben Abs#0.0 k15Ekjpwr5.0-0.2[facility] HospitalComment on above:Performed By: #### [id number], [id number], [id number] #### [facility] (DEFAULT) [address] [place] [address] 84390Bxcqyaael/100 WBC (Bld)0.0 %Low0.2-2.0[facility] Hospital Comment on above:Performed By: #### [id number], [id number], [id number] #### [facility] (DEFAULT) [address] [place] [address] 57069Yvz Abs#0.0 f05Owowck9.0-0.4Magrmccullough-hyde memorial hospital HospitalComment on above:Performed By: #### [id number], [id number], [id number] #### [facility] (DEFAULT) [address] [place] [address] 36436Bivcwevuhyh/100 WBC (Bld)0.0 %Low0.9-4.0[facility] Hospital Comment on above:Performed By: #### [id number], [id number], [id number] #### [facility] (DEFAULT) [address] [place] [address] 31583Dhevy Abs#1.2 w49Toi3.3-2.9[facility] HospitalComment on above:Performed By: #### [id number], [id number], [id number] #### [facility] (DEFAULT) [address] [place] [address] 76951Osmuuqrasvi/100 WBC (Bld)9 %Cpb16-41WzyoibkhCincinnati Va Medical Center Comment on above:Performed By: #### [id number], [id number], [id number] #### [facility] (DEFAULT) [address] [place] [address] 88684Ncfr Abs#1.3 l81Dchx8.0-0.8[facility] HospitalComment on above:Performed By: #### [id number], [id number], [id number] #### [facility] (DEFAULT) [address] [place] [address] 96404Qxzi Abs#11.6 t27Ntwb8.5-9.2[facility] HospitalComment on above:Performed By: #### [id number], [id number], [id number] #### [facility] (DEFAULT) [address] [place] [address] 48033Urvowunqncx/100 WBC (Bld)82 %Lcjuxd81-00Mxapvgqi Hospital Comment on above:Performed By: #### [id number], [id number], [id number] #### [facility] (DEFAULT) [address] [place] [address] 16436VMV w/ Auto Diffon 16-13-4487Oxotrhbfsvw distribution width (RBC) [Ratio]14.0 %Mvjlri68.5-15.0C[facility] Va Medical CenterComment on above: Performed By: #### [id number], [id number], [id number] #### [facility] (DEFAULT) [address] [place] [address] 27062Zsxixudggj (Bld) [Volume fraction]36.8 %Eniylz18.8-51.9 [facility] Medical CenterComment on above:Performed By: #### [id number], [id number], [id number] #### [facility] (DEFAULT) [address] [place] [address] 47153Wngfsuqchl (Bld) [Mass/Vol]11.9 g/nWHzehqj61.8-17.7 [facility] HospitalComment on above:Performed By: #### [id number], [id number], [id number] #### [facility] (DEFAULT) [address] [place], [place] [address]Instr WBC14.2 x34Lwbjqon Interpretation CodeSelect Medical Trihealth Rehabilitation Hospital HospitalComment on above:Performed By: #### [id number], [id number], [id number] #### [facility] (DEFAULT) [address] [place] [address] 54823Ift Diff?AutoNormalSelect Medical Trihealth Rehabilitation Hospital HospitalComment on above: Performed By: #### [id number], [id number], [id number] #### [facility] (DEFAULT) [address] [place], [place] [address]H (RBC) [Entitic mass]30 qzVusiko62-99Gdfetvlo Hospital Comment on above:Performed By: #### [id number], [id number], [id number] #### [facility] (DEFAULT) [address] [place], [place] [address]HC (RBC) [Mass/Vol]32 g/zYFzgtps60-59Yfqyuust Hospital Comment on above:Performed By: #### [id number], [id number], [id number] #### [facility] (DEFAULT) [address] [place], [place] [address]V (RBC) [Entitic vol]94 aGKzdpjg60-110Ukczicmm Hospital Comment on above:Performed By: #### [id number], [id number], [id number] #### [facility] (DEFAULT) [address] [place] [address] 95051Ysdowmje453 m75Cihzgi096-075Jkksoxbh HospitalComment on above:Performed By: #### [id number], [id number], [id number] #### [facility] (DEFAULT) [address] [place] [address] 33378Sxatfxkb mean volume (Bld) [Entitic vol]10.4 fLHigh 6.3-10.2[facility] HospitalComment on above:Performed By: #### [id number], [id number], [id number] #### [facility] (DEFAULT) [address] [place] [address] 54804QYF6.92 g01Qmtgqw5.70-5.30[facility] HospitalComment on above:Performed By: #### [id number], [id number], 0762283 #### [facility] (DEFAULT) [address] [place] [address] 67588EGS83.2 s66Cmxu9.5-10.5[facility] HospitalComment on above: Performed By: #### [id number], [id number], [id number] #### [facility] (DEFAULT) [address] [place] [address] 19361Qbzwbigjzzu Panel Standardon 92-42-7219Ibcga gap [Moles/Vol]12.0 mmol/LNormal5.0-19.0[facility] HospitalComment on above:Performed By: #### [id number], [id number], [id number] #### [facility] (DEFAULT) [address] [place] [address] 31486Lfxfsbmo [Moles/Vol]98 mmol/UAqe249-832Amhaimpv Hospital Comment on above:Performed By: #### [id number], [id number], 7029466 #### [facility] (DEFAULT) [address] [place] [address] 05879AM2 [Moles/Vol]28 mmol/FXlorcn96-01Tyyablrv Hospital Comment on above:Performed By: #### [id number], [id number], [id number] #### [facility] (DEFAULT) [address] [place] [address] 14483Alizkvuei [Moles/Vol]3.8 mmol/LNormal3.6-5.1Magrmccullough-hyde memorial hospital HospitalComment on above:Performed By: #### [id number], [id number], 9843236 #### [facility] (DEFAULT) [address] [place] [address] 22221Ayvolq [Moles/Vol]134.0 mmol/LDmp054.0-144.0[facility] HospitalComment on above:Performed By: #### [id number], [id number], [id number] #### [facility] (DEFAULT) [address] [place], [place] [address]Fcddhdqiy Patient Summaryon 26-35-1820Llgxdzhwj Patient Summary[address] [address] Patient Discharge Instructions Name: ZAINA WINTERS Carmen : 1950 Patient Address: [address] [place], [place] [address] Primary Care Provider: Name: Jeannine Hurley After you are discharged if you find you have any questions, please, call [phone] ext [phone] to speak to a nurse. Discharge Diagnosis: Acute pain of right knee Prescription Information: If you have been given a prescription for narcotics, seek immediate medical attention if you have any difficulty breathing or any sudden status changes such as confusion andsleepiness. If you or anyone you know is experiencing suicidal thoughts, mental health, alcohol and/or drug addiction problems; contact the Mental Health [facility] Recovery [facility] 05/09 Crisis Hotline -text 4HVDC bj 474369. If you received any narcotics, sedation, or [...] business decisions or sign any legal documents [facility] would like to thank you for allowing us to assist you with your healthcare needs.The following includes patient education materials and information regarding your injury/illness. ZAINA WINTERS has been given the following list of follow-up instructions, prescriptions, and patient education materials: Follow-up Instructions With: Address: When: Trenton Redd [address] [place] [address], [address] [place] [id number] Business (1) 10/01/2021 11:00 AM Medications During [...] 12.5 mg-50 mg oral tablet) 1 tab(s) Oralevery day. metoprolol (Metoprolol Tartrate 25 mg oral [...] list that you can keep with you. acetaminophen-oxycodone (!-Percocet 5/325 oral tablet) 1 tab(s) [...] 12.5 mg-50 mg oral tablet) 1 tab(s) Oralevery day. metoprolol (Metoprolol Tartrate 25 mg oral [...] bear weight to tolerance (more content not included)...Normal [facility] Center[facility]armacy Noteon 76-02-4338Bgovohds NoteI have personally reviewed the patient's medication list upon discharge including, prescription medications, OTC products, vitamins and supplements. Below are the following medications the patient isdischarged on. Medications That Were Updated - Follow [...] 12.5 mg-50 mg oral tablet) 1 tab(s) Oralevery day. metoprolol (Metoprolol Tartrate 25 mg oral [...] Emiliano Montgomery [Verified on: 09/18/2021 10:36 EDT] Brian MontgomeryGenesis Hospital Note - Nurseon 18-39-2654Kaoqazfk Note - NurseDischarged to home. Prescriptions and instructions reviewed with and given to pt. He verbalized understanding. Taken to awaiting vehicle via wheelchair. All belongings sent with pt. [Electronically Signed on: 09/29/2021 14:49 EDT] Mildred David RN [Verified on: 09/29/2021 14:49 EDT] Mildred David RNOhioHealth Grant Medical Center Note - NursePOC discussed with pt. Educated on safety and ADL care once discharge home. He verbalized understanding [Electronically Signed on: 09/29/2021 14:49 EDT] Mildred David RN [Verified on: 09/29/2021 14:49 EDT] Mildred David RNOur Lady of Mercy Hospital - AndersonAnesthesia Noteon 19-92-7821Adrhucalqb NotePatient: ZAINA WINTERS Age: 70 years Sex: MALE : 1950 Associated Diagnoses: None Author: Eugene Castaneda MD Postoperative Information Post Operative Note: Operative Day. Anesthetic utilized: General. 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 Aftercare following left knee joint replacement surgery / SNOMED CT 476820497 / Confirmed Resolved: COVID-19 / SNOMED CT 8058254969 Resolved: Diabetes / SNOMED CT 895591886 Physical Examination VS/Measurements Vital Signs (last 24 [...] [Verified on: 09/17/2021 14:12 EDT] Eugene Castaneda MDOur Lady of Mercy Hospital - AndersonAnesthesia NotePatient: ZAINA WINTERS Age: 70 years Sex: MALE [...] 325 mg = 1 tab(s), PO, Daily hydrochlorothiazide-losartan 12.5 mg-50 mg oral tablet 1 tab(s), [...] All Problems Atrial fibrillation / SNOMED CT 36716008 / Confirmed FH: hypertension / SNOMED CT 441536446 / Confirmed History of post-polio syndrome / SNOMED CT 549423922 / Confirmed Aftercare following left knee joint replacement surgery / SNOMED CT 030230312 / Confirmed Resolved: COVID-19 / SNOMED CT 8752382408 Resolved: Diabetes / SNOMED CT 058729370 Histories Family History: CA - Cancer of colon Grandparent Heart attack Mother Grandparent Tobacco user Mother Father Brother Procedure history: Arthroplasty of knee using cement (348243023) on 03/02/2021 at 70 Years. Back (443668502). Comments: 02/04/2021 10:08 Oliva Van RN surgery [...] Oriented. Review / Management Laboratory Results Plan [place] [employer]esthesiologists#(ASA) physical status classification: Class III. Anesthetic Preoperative Plan Anesthesia: General. , Regional adductor canal block for post op pain control per surgeon request. Anesthetic plan, risks, benefits, and alternatives discussed with the patient and/or family. Patient verbalized understanding. [Electronically Signed on: 09/17/2021 11:19 EDT] Eugene Castaneda MD [Verified on: 09/17/2021 11:19 EDT] Eugene Castaneda MDK[facility]20[facility] RecordMAGR Intra-Op Record Summary Primary Physician: DAVID AWAD DO Finalized Date/Time: 09/17/21 14:17:42 Pt. Name: ZAINA WINTERS Carmen HannaB./Sex: 1950 MALE Med Rec #: [id number] Physician: DAVID AWAD DO Financial #: [id number] Pt. Type: D Room/Bed: [facility] Admit/Disch: 09/17/21 08:03:00 - Institution: Case Times MAGR Entry 1 Patient In Room Time 09/17/21 10:17:00 Out Room Time 09/17/21 14:10:00 Anesthesia Start Time 09/17/21 10:18:00 Stop Time 09/17/21 14:10:00 Surgery Start Time 09/17/21 11:07:00 Stop Time 09/17/21 13:59:00 Last Modified By: Zhanna Urrutia RN 09/17/21 14:17:36 Case Attendance MAGR Entry 1 Entry 2 Entry 3 Case Attendee STEPANIC, Eugene Moon MD, Erica RN Role Performed Surgeon - Primary Anesthesiologist of Forming Department Supervisor Record Time In 09/17/21 10:35:00 09/17/21 10:17:00 09/17/21 10:17:00 Time Out 09/17/21 13:32:00 09/17/21 14:10:00 09/17/21 14:10:00 Procedure Arthroplasty Knee Arthroplasty Knee Arthroplasty Knee Total(Right, Knee) Total(Right, Knee) Total(Right, Knee) Last Modified By: Zhanna Urrutia RN, Erica RN Baumer, Erica RN 09/17/21 14:17:37 09/17/21 14:17:37 09/17/21 14:17:37 Entry 4 Entry 5 Entry 6 Case Attendee Sue Rodriguez NEW CAR GET READY MECHANIC Marjorie Esteves CST, PA-C, Matthew J Role Performed Railroad Construction Director Scrub Personnel Physican Pilot Plant Technician Time In 09/17/21 10:17:00 09/17/21 10:17:00 [...] Performs skin preparation Im.270.1 Implements protective measures toprevent skin and tissue injury due to chemical sources Entry 1 Skin Prep Syntegrity Prep Agents (Im.270) 7.5% Povidone-Iodine Prep By Zhanna Urrutia RN Scrub 10% Povidone-Iodine [place] Prep Area (more content not included)...[facility] Intraoperative RecordMAGR Intra-Op Record Summary Primary Physician: Finalized Date/Time: 09/17/21 10:39:41 Pt. Name: ZAINA WINTERS /Sex: 1950 MALE Med Rec #: [id number] Physician: DAVID AWAD DO Financial #: [id number] Pt. Type: D Room/Bed: [facility]/1 Admit/Disch: 09/17/21 08:03:00 - Institution: Case Times [...] RN, Brayan Altamirano Role Performed Anesthesiologist of Forming Department Supervisor Forming Department Supervisor Record Time In 09/17/21 09:55:00 09/17/21 09:55:00 [...] Performs skin preparation Im.270.1 Implements protective measures toprevent skin and tissue injury due to chemical [...] Document Signatures Signed By (more content not included)...[facility] PACU Record on 93-77-9964ZMEX PACU RecordMAGR PACU Record Summary Primary Physician: DAVID AWAD DO Finalized Date/Time: 09/17/21 15:19:58 Pt. Name: ZAINA WINTERS /Sex: 1950 MALE Med Rec #: [id number] Physician: DAVID AWAD DO Financial #: [id number] Pt. Type: D Room/Bed: [facility] Admit/Disch: 09/17/21 08:03:00 - Institution: PACU Case Times MAGR Entry 1 In PACU I 09/17/21 14:10:00 Discharge from PACU 09/17/21 15:15:00 I Last Modified By: Vianca Celaya RN 09/17/21 15:19:57 Finalized By: Vianca Celaya RN Document Signatures Signed By: Vianca Celaya RN 09/17/21 15:19NoChildren[facility] Preoperative Recordon 07-06-8494IROS Preoperative RecordMAGR Pre-Op Record Summary Primary Physician: DAVID AWAD DO Finalized Date/Time: 09/17/21 10:43:23 Pt. Name: ZAINA WINTERS /Sex: 1950 MALE Med Rec #: [id number] Physician: DAVID AWAD DO Financial #: [id number] Pt. Type: D Room/Bed: 229/1 Admit/Disch: 09/17/21 [...] ready for surgery. The patient remains free froms/s of injury. Patient/family express understanding of plan of care and participate in decisions affectinghis or her perioperrative plan of care. Allergies documented appropriately. Patient identifiers and consent correct. General Comments: Pt arrives to W ambulatory. Pt denies CP, cold/flu/COVID like symptoms. Pt denies, DM, pacer/defib, POOL. Finalized By: Vianca Celaya RN Document Signatures Signed By: Vianca Celaya RN 09/17/21 10:43[facility] AndersonNutrition Noteon 09-17-2021 Nutrition NotePt admitted for scheduled Rt knee surgery; had Lt knee replaced in Feb. Pt currently NPO. pre-op wtat 136.6kg, up slightly from Dec 134kg wt [...] Regular with in house available Ensure Compact BID.[facility] Progress Note - Nurseon 66-45-2874Ecstspke Note - NurseIV fluids stopped for good PO intake at this time [Electronically Signed on: 09/24/2021 15:45 EDT] Raquel Duvall RN [Verified on: 09/24/2021 15:45 EDT] Raquel Duvall RNOur Lady of Mercy Hospital - AndersonXR Knee One or Two Views Righton 26-52-4128PW Knee One or Two Views RightEXAM: XR Knee One or Two Views Right [...] John Mckenna MD 09/17/21 4:07 pm Technologist: BRENNANEast Liverpool City HospitalProgress Note - Nurseon 09-16-2021 Progress Note - NursePre-op phone call complete. Reviewed arrival time of 0830 on Monday09/17/2021 and pre-op instructions with pt. Pt voiced understanding and is without further questions or concerns at this time. [Electronically Signed on: 09/16/2021 09:25 EDT] Brayan Roach RN [Verified on: 09/16/2021 09:25 EDT] Marley SUTTONBrayan [facility] Hospital2019 Novel Coronavirus (CoVID-19), JULISSA LCon 29-80-7475DEDE-CoV-2 (COVID-19) RNA JULISSA+probe Ql (Unsp spec)Not detectedInvalid Interpretation CodeNot [facility] HospitalComment on above:Order Comment: [phone] [id number] Comment: This nucleic acid amplification test was developed and its performance characteristics determined by [employer]. Nucleic acid amplification tests include RT- PCR [...] detected) result in this assay. Performed At: [address] [id number] Zay Landa PhD Ph:[phone] By: #### [id number] #### [facility] (DEFAULT) [address] [place] [address] 01161Dhinym Summaryon 84-74-9160Spcrqs SummaryMLBase 64 QaaldqxlZVb5dQm+PGhlYWQ+ML6MAQJdS51hfEAafS8YF6zUNZ4LNUJCJCVLNL8RLA5quNL8LMvaC3Oi biAv [file] IGN (more content not included)...[facility] AndersonC Urineon 09-03-2021 Urine<10,000 cfu/mlNLima City HospitalComment on above:Performed By: #### [id number] ####[facility] (DEFAULT)[address] [place] [address] Progress Note - Nurseon 35-00-1906Doumawsq Note - NursePAT chart for 09-17-2021 surgery reviewed per anesthesiologistDr Mccauley- no additional orders recei gregg. [Electronically Signed on: 09/02/2021 13:45 EDT] Rita Molina RN [Verified on: 09/02/2021 13:45 EDT] Rita Molina RNNoPaulding County HospitalProvider Orderson 80-96-7148Ugjzmnwl Qwhetr289.170.46.181.29481178976239546133ZL6YW#1.00OTGTIFFOur Lady of Mercy Hospital - Anderson.Auto Diff 1on 69-35-4274Vwbu Kay %9 %Normal1-12[facility] Comment on above:Performed By: #### [id number], [id number], 5582081 ####[facility] (DEFAULT)[address] [place] [address] 89461Bfqm Abs#0.0 z84Wfithv 0.0-0.2MCleveland Clinic South Pointe HospitalComment on above:Performed By: #### [id number], [id number], 5871591 ####[facility] (DEFAULT)[address] [place] [address] 39300Thxltgrsi/100 WBC (Bld)0.6 %Normal0.2-2.0[facility] HospitalComment on above:Performed By: #### [id number], 84103944, 7698813 ####[facility] (DEFAULT)[address] [place] [address] 37282Hdo Abs#0.0 l92Iwtfyq8.0-0.4 [facility] HospitalComment on above:Performed By: #### [id number], [id number], 0039851 ####[facility] (DEFAULT)[address] [place] [address] 26916 Eosinophils/100 WBC (Bld)0.7 %Low0.9-4.0[facility] HospitalComment on above: Performed By: #### [id number], 90538514, 7512143 ####[facility] (DEFAULT)[address] [place] [address] 20149Cwemb Abs#2.2 j51Bufgdd1.3-2.9 [facility] HospitalComment on above:Performed By: #### [id number], [id number], 9600101 ####[facility] (DEFAULT)[address] [place] [address] 24187 Lymphocytes/100 WBC (Bld)31 %Laejfi35-74Bskcnruw HospitalComment on above: Performed By: #### [id number], [id number], 8028598 ####[facility] (DEFAULT)[address] [place] [address] 63596Kuak Abs#0.7 o21Cbthsw7.0-0.8 [facility] HospitalComment on above:Performed By: #### [id number], [id number], 0730561 ####[facility] (DEFAULT)[address] [place] [address] 01823 Neut Abs#4.1 l91Ruqzjj9.5-9.2[facility] HospitalComment on above:Performed By: #### [id number], [id number], 8267390 ####[facility] (DEFAULT)[address] [place] [address] 66399Mmjmqarcaln/100 WBC (Bld)58 %Fqxhnw91-48Vflcywty HospitalComment on above:Performed By: #### [id number], 77991978, 6339170 ####[facility] (DEFAULT)[address] [place] [address] 42948CYU Standardon 02-03-1159tOFT Non AA>60Invalid Interpretation [facility] Comment on above:Performed By: #### [id number], [id number], 3588653 ####[facility] (DEFAULT)[address] [place] [address] 66888wACD AA>60Invalid Interpretation [facility] SystemComment on above:Result Comment: Chronic Kidney disease could be indicated at eGFRs of less than 60 ml/min/1.73m2. Kidney Failure is indicated at less than 15 ml/min/1.19v9Iutjqoczz By: #### [id number], 27623289, 1352418 ####[facility] (DEFAULT)[address] [place] [address] 30118Dlssi gap [Moles/Vol]12.0 mmol/LNormal5.0-19.0[facility] HospitalComment on above:Performed By: #### [id number], 15102734, 5974383 ####[facility] (DEFAULT)[address] [place] [address] 82098Caevlus [Mass/Vol]9.7 mg/dL Normal8.9-10.3[facility] HospitalComment on above:Performed By: #### [id number], 61961169, 5578930 ####[facility] (DEFAULT)[address] [place] [address] 39281Jhghkkrk [Moles/Vol]102 mmol/COksxtt625-241Etrffoqp HospitalComment on above:Performed By: #### [id number], 84328336, 6599103 ####[facility] (DEFAULT)[address] [place] [address] 52282NI2 [Moles/Vol]29 mmol/LNormal 21-32[facility] HospitalComment on above:Performed By: #### [id number], 91509614, 0699826 ####[facility] (DEFAULT)[address] [place] [address] 41219 Creatinine [Mass/Vol]0.94 mg/dLNormal0.90-1.30[facility] HospitalComment on above: Performed By: #### [id number], 02925378, 5971138 ####[facility] (DEFAULT)[address] [place] [address] 59940Ypesrxn [Mass/Vol]109.0 mg/dL Zrwfsv63.0-118.0[facility] HospitalComment on above:Performed By: #### [id number], 89861405, 2489306 ####[facility] (DEFAULT)[address] [place] [address] 78524Olycvvnxcq340 mOsm/LInvalid Interpretation CodeSelect Medical Trihealth Rehabilitation Hospital HospitalComment on above:Performed By: #### [id number], 62144419, 2948283 ####[facility] (DEFAULT)[address] [place] [address] 69189Wnylzcqno [Moles/Vol]4.1 mmol/L Normal3.6-5.1[facility] HospitalComment on above:Performed By: #### [id number], 01152459, 6543015 ####[facility] (DEFAULT)[address] [place] [address] 48924Rzxhgy [Moles/Vol]139.0 mmol/CNctbwg775.0-144.0[facility] HospitalComment on above:Performed By: #### [id number], 77297097, 3555809 ####[facility] (DEFAULT)[address] [place] [address] 01406Ihua nitrogen [Mass/Vol]21 mg/dL Normal8-26[facility] HospitalComment on above:Performed By: #### [id number], 96457778, 9735079 ####[facility] (DEFAULT)[address] [place] [address] 73554Fxvr nitrogen/Creatinine [Mass ratio]22.0 mg/mgHigh4.6-16.2[facility] HospitalComment on above:Performed By: #### [id number], 31301586, 5124118 ####[facility] (DEFAULT)[address] [place] [address] 44391DAX w/ Auto Diffon 04-01-7303Dijxkcmxduy distribution width (RBC) [Ratio]14.0 %Normal 11.5-15.0[facility] CenterComment on above:Performed By: #### [id number], 46080036, 0105362 #### [facility] (DEFAULT) [address] [place] [address] 72650Mkruaxdppa (Bld) [Volume fraction]45.0 %Grpjbs32.8-51.9 [facility] CenterComment on above:Performed By: #### [id number], 20029315, 5952207 #### [facility] (DEFAULT) [address] [place], [place] [address]Hemoglobin (Bld) [Mass/Vol]14.5 g/kGDbupkw00.8-17.7 [facility] CenterComment on above:Performed By: #### [id number], 64729094, 7402479 #### [facility] (DEFAULT) [address] [place] [address] 15003Hoeii WBC7.0 d66Qdjhqqs Interpretation CodeCincinnati Va Medical CenterComment on above:Performed By: #### [id number], 58190019, 3893214 #### [facility] (DEFAULT) [address] [place] [address] 32352Elt Diff?AutoNormalCincinnati Va Medical CenterComment on above: Performed By: #### [id number], 70269068, 5634652 #### [facility] (DEFAULT) [address] [place] [address] 87978BWT (RBC) [Entitic mass]30 svYjoapi75-79Iilizajd Hospital Comment on above:Performed By: #### [id number], 48185461, 4967567 #### [facility] (DEFAULT) [address] [place] [address] 99277UTZH (RBC) [Mass/Vol]32 g/iBNgevuf14-63Rctwtavr Hospital Comment on above:Performed By: #### [id number], 07222922, 6460117 #### [facility] (DEFAULT) [address] [place] [address] 88337NOH (RBC) [Entitic vol]93 mQKdfxng26-325Nikvjdxd Hospital Comment on above:Performed By: #### [id number], 42576796, 7083555 #### [facility] (DEFAULT) [address] [place] [address] 44530Xjvdcjqr387 d75Ficjda586-031Zgtkydln HospitalComment on above:Performed By: #### [id number], 65204478, 9941292 #### [facility] (DEFAULT) [address] [place] [address] 66725Sjmcudri mean volume (Bld) [Entitic vol]10.2 fLNormal 6.3-10.2[facility] HospitalComment on above:Performed By: #### [id number], 54611403, 3326590 #### [facility] (DEFAULT) [address] [place] [address] 40582QOV8.86 n29Yhtkqk0.70-5.30[facility] HospitalComment on above:Performed By: #### [id number], 46935932, 1795912 #### [facility] (DEFAULT) [address] [place] [address] 03960BCS3.0 m09Ooiczt1.5-10.5[facility] HospitalComment on above: Performed By: #### [id number], 58500953, 4438357 #### [facility] (DEFAULT) [address] [place] [address] 03438WA Bone Length Studies Scanogramson 77-90-6703UM Bone Length Studies ScanogramsEXAM: XR Bone Length Studies Scanograms HISTORY: Pre-Op [...] John Mckenna MD 09/04/21 4:45 pm Technologist: RONAK,[facility] HospitalComplete Blood Count with Auto Diffon 46-14-1966Cwpoeekqs (Bld) [#/Vol]0.04 10*3/uLNormal0.00-0.20[facility]ortWood [facility] Hospital SpecialistComment on above:Performed By: #### CMP, CBCAD #### [facility] [address] [place], [place] [id number]/100 WBC (Bld)0.6 %NormalNoOhioHealth Marion General Hospital SpecialistComment on above:Performed By: #### CMP, CBCAD #### [facility] [address] [place], [place] [id number] (Bld) [#/Vol]0.11 10*3/uLNormal0.02-0.50[facility] SpecialistComment on above:Performed By: #### CMP, CBCAD #### [facility] [address] [place], [place] [id number]/100 WBC (Bld)1.7 %NormalNoOhioHealth Marion General Hospital SpecialistComment on above:Performed By: #### CMP, CBCAD #### [facility] [address] [place], [place] [id number] distribution width (RBC) [Ratio]13.7 %Normal 11.0-15.0NoOhioHealth Marion General Hospital SpecialistComment on above:Performed By: #### CMP, CBCAD #### [facility] [address] [place], [place] [id number] (Bld) [Volume fraction]43.3 %Dhnftc89.5-50.0 [facility] SpecialistComment on above:Performed By: #### CMP, CBCAD #### [facility] [address] [place], [place] [id number] (Bld) [Mass/Vol]14.1 g/jQLrlpfp92.0-17.1NorthOhio[facility] SpecialistComment on above:Performed By: #### CMP, CBCAD #### [facility] [address] [place], [place] [id number] (Bld) [#/Vol]1.7 10*3/uLNormal0.9-3.9[facility] SpecialistComment on above:Performed By: #### CMP, CBCAD #### [facility] [address] [place], [place] [id number]/100 WBC (Bld)26.3 %NormalSumma Health SpecialistComment on above:Performed By: #### CMP, CBCAD #### [facility] [address] [place], [place] [id number] (RBC) [Entitic mass]29.1 bnPyeror02.0-33.0[facility] SpecialistComment on above:Performed By: #### CMP, CBCAD #### [facility] [address] [place], [place] [id number] (RBC) [Mass/Vol]32.6 g/cWOmoxxm93.0-36.0[facility] SpecialistComment on above:Performed By: #### CMP, CBCAD #### [facility] [address] [place], [place] [id number] (RBC) [Entitic vol]90 tYSqvdop35-301Lujergim [facility] SpecialistComment on above:Performed By: #### CMP, CBCAD #### [facility] [address] [place], [place] [id number] (Bld) [#/Vol]0.6 10*3/uLNormal0.2-0.9[facility] SpecialistComment on above:Performed By: #### CMP, CBCAD #### [facility] [address] [place], [place] [id number]/100 WBC (Bld)9.6 %NormalSumma Health SpecialistComment on above:Performed By: #### CMP, CBCAD #### [facility] [address] [place], [place] [id number] (Bld) [#/Vol]3.9 10*3/uLNormal1.5-7.8[facility] SpecialistComment on above:Performed By: #### CMP, CBCAD #### [facility] [address] [place], [place] [id number]/100 WBC (Bld)61.5 %NormalNoOhioHealth Marion General Hospital SpecialistComment on above:Performed By: #### CMP, CBCAD #### [facility] [address] [place], [place] [id number] mean volume (Bld) [Entitic vol]11.30 fLNormal 7.50-12.50NoOhioHealth Marion General Hospital SpecialistComment on above:Performed By: #### CMP, CBCAD #### [facility] [address] [place], [place] [id number] (Bld) [#/Vol]222 10*3/vIEkzqho030-797Uhrphlcx [facility] SpecialistComment on above:Performed By: #### CMP, CBCAD #### [facility] [address] [place], [place] [id number] (Bld) [#/Vol]4.84 10*6/uLNormal4.20-5.80[facility] SpecialistComment on above:Performed By: #### CMP, CBCAD #### [facility] [address] [place], [place] [id number]-YM78.9 aACwwguh94.0-50.0NoOhioHealth [facility] Hospital Specialist Comment on above:Performed By: #### CMP, CBCAD #### [facility] [address] [place], [place] [id number] (Bld) [#/Vol]6.4 10*3/uLNormal3.8-11.0NoOhioHealth [facility] Hospital SpecialistComment on above:Performed By: #### CMP, CBCAD #### [facility] [address] [place], [place] [id number] Metabolic Panelon 76-49-4518Gdkhavr [Mass/Vol] 4.6 g/dLNormal3.6-5.1[facility] SpecialistComment on above:Performed By: #### CMP, CBCAD #### [facility] [address] [place], [place] [id number]/Globulin [Mass ratio]2.2 {ratio}Normal1.0-2.5NoOhioHealth [facility] Hospital SpecialistComment on above:Performed By: #### CMP, CBCAD #### [facility] [address] [place], [place] [id number] [Catalytic activity/Vol]80 U/VIkisfd96-516Okvgfdwc [facility] SpecialistComment on above:Performed By: #### CMP, CBCAD #### [facility] [address] [place], [place] [id number] [Catalytic activity/Vol]16 U/LNormal9-46NoOhioHealth [facility] Hospital SpecialistComment on above:Result Comment: 01/13/2021 Female reference range changed.Performed By: #### CMP, CBCAD #### [facility] [address] [place], [place] [id number] gap [Moles/Vol]17 mmol/LRpabfs37-82Gqeqaziy [facility] SpecialistComment on above:Result Comment: Effective 02/18/2019 reference range changed.Performed By: #### CMP, CBCAD #### [facility] [address] [place], [place] [id number] [Catalytic activity/Vol]22 U/RStmqmc77-87RtgcvkhvSumma Health SpecialistComment on above:Performed By: #### CMP, CBCAD #### [facility] [address] [place], [place] [id number] [Mass/Vol]0.40 mg/dLNormal0.30-1.20Norttuba city regional health care corporationn [facility] SpecialistComment on above:Performed By: #### CMP, CBCAD #### [facility] [address] [place], [place] [id number]/CREA20 RatioNormal6-22NortWood County HospitalStucco Applicator Comment on above:Performed By: #### CMP, CBCAD #### [facility] [address] [place], [place] [id number] [Mass/Vol]9.4 mg/dLNormal8.6-10.2[facility] SpecialistComment on above:Performed By: #### CMP, CBCAD #### [facility] [address] [place], [place] [id number] [Moles/Vol]101 mmol/TAinmwf07-026Gxsowaas [facility] SpecialistComment on above:Performed By: #### CMP, CBCAD #### [facility] [address] [place], [place] [id number] [Moles/Vol]26 mmol/HViypdr65-01Qkhtgfql [facility] SpecialistComment on above:Performed By: #### CMP, CBCAD #### [facility] [address] [place], [place] [id number] [Mass/Vol]0.7 mg/dLNormal0.7-1.4[facility] SpecialistComment on above:Performed By: #### CMP, CBCAD #### [facility] [address] [place], [place] [id number] mL/min/1.22j4Rgvpny>60[facility] SpecialistComment on above:Performed By: #### CMP, CBCAD #### [facility] [address] [place], [place] [id number] mL/min/1.09x4Kexkmd>60[facility] SpecialistComment on above:Performed By: #### CMP, CBCAD #### [facility] [address] [place], [place] [id number] (S) [Mass/Vol]2.1 g/dLNormal1.9-3.7NoOhioHealth [facility] Hospital SpecialistComment on above:Performed By: #### CMP, CBCAD #### [facility] [address] [place], [place] [address]Jljsejk [Mass/Vol]98 mg/jIMpsadx20-83Hkupfwet [facility] SpecialistComment on above:Result Comment: For FASTING Glucose --- ADA reference ranges: Normal 65-99 mg/dl Prediabetes 100-125 Diabetes >/= 126Performed By: #### CMP, CBCAD #### [facility] [address] [place], [place] [id number] [Moles/Vol]3.9 mmol/LNormal3.5-5.5NoOhioHealth [facility] Hospital SpecialistComment on above:Performed By: #### CMP, CBCAD #### [facility] [address] [place], [place] [id number] [Mass/Vol]6.7 g/dLNormal6.1-8.1NorthOhioHealth [facility] SpecialistComment on above:Performed By: #### CMP, CBCAD #### [facility] [address] [place], [place] [address]Wojoug [Moles/Vol]139 mmol/SThhzqb727-191Qgcgtazi [facility] SpecialistComment on above:Performed By: #### CMP, CBCAD #### [facility] [address] [place], [place] [address]Wjdb nitrogen [Mass/Vol]14 mg/dLNormal7-25NoOhioHealth [facility] Hospital SpecialistComment on above:Performed By: #### CMP, CBCAD #### [facility] [address] [place], [place] [id number] A1Con 97-24-4251SKE674.98NormalNoOhioHealth [facility] SpecialistComment on above:Performed By: #### A1C #### [facility] [address] [place], [place] [id number] (Bld) [Mass fraction]6.4 %High4.0-6.0NoOhioHealth [facility] Hospital SpecialistComment on above:Performed By: #### A1C #### [facility] [address] [place], [place] [id number] - B-TYPE NATRIURETIC (BNP)on 20-05-3958Oulpkmaglyi peptide B (Bld) [Mass/Vol]33 pg/mLNormal<100[facility] SpecialistComment on above:Order Comment: [facility] at[facility], [address], [address] [place], [address], Personal Service Workers: Curtis Lyons MD [facility] Collection Date/Time: [id number] [facility] Results Received Date/Time: [facility] Reported Date/Time: FASTING: NOResult Comment: BNP levels increase with age in the general population with the highest values seen in individuals greater than 75 years of age. Reference: J. Am. Cheryl. Cardiol. 2002; 40:976-982.Performed By: #### [id number] #### [facility] [address] [place], [place] [address]Qtcjtu Summaryon 65-79-3135Eiumbx SummaryHTMLBase 64 HtrpegrxBRe4rQg+PGhlYWQ+VG3GFJKpG36wqLQwzZ4EX4pEMS8RACXKUZTGAK5OFU5laKG0SFudQ5Fw biAv [file] IGN (more content not included)...[facility] HospitalConsent Formson 00-20-5201Erbytxn [id number]#1.00OTGTIFF [facility] HospitalCoding Summaryon 67-51-8057Kdyzir SummaryHTMLBase 64 DwgqaomxWTo8aBp+PGhlYWQ+MK9IVUGoL50mxMErvO4WK0dGKJ8UBQGELHKCXS7CGW2faFS7CNtlX5Ve biAv [file] Y29 (more content not included)...NormalSelect [facility] HospitalCoding Summaryon 37-60-1317Xpgxjl SummaryHTMLBase 64 EsyhlxilEJc7rDi+PGhlYWQ+IW9KWXNqH99tzDHbwE8EL6aJPB9HQUKWSJELUQ2HOQ3qfGZ6ULuwU3Fa biAv [file] IGN (more content not included)...[facility] Anderson[facility] Formson 32-31-0799Uwdlfzs [id number]#1.00OTGTIFF [facility] AndersonElectronic Messagingon 77-33-3211Xhjgsbsjbn Messaging--- --- --- --- --- --- --- --- --- From: Directtest (Atfabm40), Directtest To: ZAINA WINTERS Sent: 03/04/21 10:12:15 AM EST Subject: Discharge Summary Ready to View A summary regarding your recent visit is available in the Documents section of your Health Record.[facility] Intraoperative Recordon [id number] Intraoperative RecordMAGR Intra-Op Record Summary Primary Physician: DAVID AWAD Finalized Date/Time: 03/04/21 08:14:12 Pt. Name: ZAINA WINTERS.O.B./Sex: 1950 MALE Med Rec #: [id number] Physician: DAVID AWAD Financial #: [id number] Pt. Type: O Room/Bed: [facility] Admit/Disch: 03/02/21 05:52:00 - 03/03/21 [...] Role Performed Surgeon - Primary Anesthesiologist of Forming Department Supervisor Record Time In 03/02/21 08:00:00 03/02/21 08:00:00 03/02/21 08:00:00 Time Out 03/02/21 12:09:00 03/02/21 12:09:00 03/02/21 12:09:00 Procedure Arthroplasty Knee Arthroplasty Knee Arthroplasty Knee Total(Left) Total(Left) Total(Left) Last Modified By: Jo-Ann Schwab RN, Barbara RN Long, Barbara RN 03/02/21 12:19:51 03/02/21 12:19:51 03/02/21 12:19:51 Entry 4 Entry 5 Entry 6 Case Attendee Marjorie Esteves NEW CAR GET READY MECHANIC, Sue Horner NEW CAR GET READY MECHANIC Role Performed Scrub Personnel Railroad Construction Director Railroad Construction Director Time In 03/02/21 08:00:00 03/02/21 08:00:00 [...] Performs skin preparation Im.270.1 Implements protective measures toprevent skin and tissue injury due to chemical sources Entry 1 Skin Prep Syntegrity Prep Agents (Im.270) Povidone-Iodine Prep By Jo-Ann Schwab RN Prep Area (Im.270) Knee, Leg, Foot Prep Area Details Left Skin Prep Agent Dry Yes Without Pooling Hair Removal Syntegrity Hair Removal Methods No hair removal performed Outcome Met (O.100) Yes Last Modified By: Zaheer (more content not included)...[facility] Outside Recordson 70-18-8648Gslrxrm Records [id number]#1.00[facility] Provider Orderson 89-49-3902Gbxriocv Orders [id number]#1.00[facility] Telemetry Stripson 31-09-6115Vuwljdhhg Strips [id number]#1.00[facility].Auto Diff 1on 15-16-9372Jujs Kay %10 %Normal1-12[facility] HospitalComment on above: Performed By: #### [id number], 49495477, 3312234208, 7249386837, 2429641, 6273024955 ####[facility] (DEFAULT)[address] [place] [address] 86916Xjry Abs#0.0 i09Otomsh2.0-0.2[facility]uder HospitalComment on above:Performed By: #### [id number], 51239610, 1952707253, 0003769994, 3708977, 4278499939 ####[facility] (DEFAULT)[address] [place] [address]7824 Basophils/100 WBC (Bld)0.0 %Low0.2-2.0[facility] HospitalComment on above: Performed By: #### [id number], 87443451, 2331969626, 4340821606, 5367651, 9425535205 ####[facility] (DEFAULT)[address] [place] [address] 36604Yqk Abs#0.0 a60Chwuun2.0-0.4[facility] HospitalComment on above:Performed By: #### [id number], 88095055, 7963976943, 5615827856, 4849934, 7228929699 ####[facility] (DEFAULT)[address] [place] [address] 98441 Eosinophils/100 WBC (Bld)0.0 %Low0.9-4.0[facility] HospitalComment on above: Performed By: #### [id number], 51205096, 2771731611, 5553829665, 6463945, 0035286987 ####[facility] (DEFAULT)[address] [place] [address] 25885Phlpb Abs#1.9 u81Vwhbqi5.3-2.9[facility] HospitalComment on above:Performed By: #### [id number], 97444726, 5469956731, 5836831320, 5194242, 2560592370 ####[facility] (DEFAULT)[address] [place] [address] 21791 Lymphocytes/100 WBC (Bld)10 %Dqy44-71Lpzpvjhm HospitalComment on above:Performed By: #### [id number], 85956946, 5911326638, 9151035123, 6570690, 4361623940 ####[facility] (DEFAULT)[address] [place] [address] 14095Kqrc Abs# 1.9 h24Iveu0.0-0.8[facility] HospitalComment on above:Performed By: #### 5554200803, 43314926, 6318248133, 0435525219, 3241424, 0432959884 ####[facility] (DEFAULT)[address] [place] [address] 91424Ocva Abs#16.2 z08Nnlx 1.5-9.2[facility] HospitalComment on above:Performed By: #### 5846411612, 44051810, 3949194634, 7141040443, 2592067, 7480799985 ####[facility] (DEFAULT)[address] [place] [address] 17279Fvslmytyynf/100 WBC (Bld)81 % Hsxmki14-91Xqelhlcw HospitalComment on above:Performed By: #### 1243404301, 30375404, 6438943524, 5514060336, 6564321, 0064689884 ####[facility] (DEFAULT)[address] [place] [address] 57889NEM w/ Auto Diffon 03-03-2021 Erythrocyte distribution width (RBC) [Ratio]13.5 %Qawecr38.5-15.0[facility] HospitalComment on above:Performed By: #### [id number], 18492846, 8097517143, 4625855903, 5913479, 4812234408 ####[facility] (DEFAULT)[address] [place] [address] 83099Docogyiocj (Bld) [Volume fraction]40.5 %Normal 34.8-51.9[facility] CenterComment on above:Performed By: #### [id number], 07094872, 5545225031, 7596305935, 0991202, 4216667047 ####[facility] (DEFAULT)[address] [place] [address] 25275Lzelzmvlji (Bld) [Mass/Vol]12.8 g/kKEcdzwc59.8-17.7[facility] CenterComment on above:Performed By: #### 9012486038, 52952360, 0991911424, 6509315967, 3441104, 4942758367 ####[facility] (DEFAULT)[address] [place] [address] 73273Obqeo WBC20.1 x10 Invalid Interpretation CodeCincinnati Va Medical CenterComment on above:Performed By: #### 2958182633, 72463201, 6405859571, 8512676462, 5897442, 4589259979 ####[facility] (DEFAULT)[address] [place] [address] 16923Pry Diff?AutoNormal [facility] CenterComment on above:Performed By: #### 8054260442, 07979896, 2780696508, 7946480384, 9997873, 4101729953 ####[facility] (DEFAULT)[address] [place] [address] 34270AHS (RBC) [Entitic mass]30 xhWbhyak92-96 [facility] CenterComment on above:Performed By: #### 5146554665, 66164301, 6513004172, 5010829198, 0480858, 1998991223 ####[facility] (DEFAULT)[address] [place] [address] 52700JADM (RBC) [Mass/Vol]32 g/cAZvclpf52-43 [facility] CenterComment on above:Performed By: #### 7250540970, 81129231, 0148032389, 7346217127, 0130521, 4338063444 ####[facility] (DEFAULT)[address] [place] [address] 69010HQZ (RBC) [Entitic vol]96 qTCdkdef33-585 [facility] CenterComment on above:Performed By: #### 5515405353, 72436030, 4923104645, 8554673010, 3615971, 7400617716 ####[facility] (DEFAULT)[address] [place] [address] 45480Fbviqkuk915 s99Eqfghx701-965Eixgziwy Hospital Comment on above:Performed By: #### 1102477151, 27268101, 8302468948, 7503980640, 4430274, 0192883351 ####[facility] (DEFAULT)[address] [place] [address] 78185Fblaqass mean volume (Bld) [Entitic vol]10.3 fLHigh 6.3-10.2MC[facility] Pointe HospitalComment on above:Performed By: #### [id number], 56062974, 9267770523, 1531858566, 3034647, 8379663640 ####[facility] (DEFAULT)[address] [place] [address] 85019BVI4.24 s92Hftsse8.70-5.30 [facility] CenterComment on above:Performed By: #### 3038768350, 73755470, 9453119418, 3964568232, 9221026, 0112856128 ####[facility] (DEFAULT)[address] [place] [address] 59976YAY53.1 b78Sovn6.5-10.5[facility] Comment on above:Result Comment: Slide ReviewedPerformed By: #### [id number], 30331079, 1216784695, 4911890518, 6105243, 8415101261 ####[facility] (DEFAULT)[address] [place] [address] 24405Qqquoqnvuoo Panel Standardon 16-91-2462Blgrj gap [Moles/Vol]17.0 mmol/LNormal5.0-19.0[facility] HospitalComment on above:Performed By: #### 7566439765, 70697333, 2828536509, 5033563761, 8652643, 6692856731 ####[facility] (DEFAULT)[address] [place] [address] 02799Izdvtiaw [Moles/Vol]97 mmol/KYcu385-694Ffqzptta HospitalComment on above:Performed By: #### 1318782749, 22218841, 5615198194, 7301951152, 9548848, 6806132373 ####[facility] (DEFAULT)[address] [place] [address] 87312AQ7 [Moles/Vol]26 mmol/TGleslp69-62Dvhcvuqj HospitalComment on above:Performed By: #### 5117530337, 41755060, 8590794024, 7833375252, 9608771, 7647959044 ####[facility] (DEFAULT)[address] [place] [address] 78098Vldpqaaki [Moles/Vol]3.9 mmol/LNormal3.6-5.1Magrmccullough-hyde memorial hospital HospitalComment on above:Performed By: #### [id number], 18466742, 9502797757, 0340954524, 7532590, 8117752669 ####[facility] (DEFAULT)[address] [place] [address] 92701Hwhzjj [Moles/Vol]136.0 mmol/OHqzwar868.0-144.0[facility] HospitalComment on above:Performed By: #### 0645620616, 02167696, 6142142567, 3949777116, 7310637, 3187402019 ####[facility] (DEFAULT)[address] [place] [address] 20569Svdlp Greenon 46-17-6537Zghs CollectedYesInvalid Interpretation Code [facility] CenterComment on above:Performed By: #### [id number], 12856598, 5587978567, 5864875330, 4240969, 1983283437 ####[facility] (DEFAULT)[address] [place] [address] 72498Gblooyyeh Patient Summaryon 03-03-2021 Inpatient Patient Summary[address] [address] Patient Discharge Instructions Name: ZAINA WINTERS : 1950 Patient Address: [address] [place] [address] Primary Care Provider: Name: Jeannine Hurley After you are discharged if you find you have any questions, please, call [phone] ext [phone] to speak to a nurse. Discharge Diagnosis: Aftercare following left knee joint replacement surgery; Presence of left artificial knee joint Prescription Information: If you have been given a prescription for narcotics, seek immediate medical attention if you have any difficulty breathing or any sudden status changes such as confusion andsleepiness. If you or anyone you know is experiencing suicidal thoughts, mental health, alcohol and/or drug addiction problems; contact the Mental [facility] Recovery [facility] 05/09 Crisis Hotline -Text 4HTSK [place] 409573. If you received any narcotics, sedation, or [...] business decisions or sign any legal documents [facility] would like to thank you for allowing us to assist you with your healthcare needs.The following includes patient education materials and information regarding your injury/illness. ZAINA WINTERS has been given the following list of follow-up instructions, prescriptions, and patient education materials: Follow-up Instructions With: Address: When: Trenton Redd [address] [place] [address], [address] [place] [address] Business (1) 03/15/2021 10:30 AM With: Address: When: Jeannine Evangelista [address] [place] [address] Business (1) Medications During the course of your visit, your medication list was updated with the most current information. The details of those changes are reflected below: New Medications Printed Prescriptions acetaminophen-oxycodone (Percocet 5 mg-325 mg oral tablet) 1 tab(s) Oral every 6 hours as needed asneeded for pain. Refills: 0. Medications That Were [...] 12.5 mg-50 mg oral tablet) 1 tab(s) Oralevery day. melatonin (melatonin 10 mg oral tablet) [...] list that you can keep with you. acetaminophen-oxycodone (Percocet 5 mg-325 mg oral tablet) 1 tab(s) Oral every 6 hours as needed asneeded for pain. Refills: 0. allopurinol (allopurinol 100 [...] 12.5 mg-50 mg oral tablet) 1 tab(s) Oralevery day. melatonin (melatonin 10 mg oral tablet) [...] (rOPINIRole 0.5 mg oral (more content not included)...[facility] Postoperative Recordon [id number] Postoperative RecordMA Phase II Record Summary Primary Physician: DAVID AWAD Finalized Date/Time: 03/03/21 08:37:51 Pt. Name: ZAINA WINTERS/Sex: 1950 MALE Med Rec #: [id number] Physician: DAVID AWAD Financial #: [id number] Pt. Type: O Room/Bed: [facility]/ Admit/Disch: 03/02/21 05:52:00 - Institution: Phase II Case Times MAGR Pre-Care Text: Patient is free from s/s of injury. Patient remains free from compromised physical state related tosurgery or anesthesia. Patient comfort maintained. Patient/family verbalize [...] Signatures Signed By: Vianca Celaya RN 03/03/21 08:37[facility] AndersonNutrition Noteon 03-03-2021 Nutrition NotePt admitted for scheduled Lt total knee surgery. Diet advanced to 3000kcal DM, along w/ usual post op vitamins/minerals and oral nutritional supplements; adjusted by engineering technical writer to 2000kcal to better meetnutritional needs without overcompensating. Labs reviewed, BS 138-177mg/dl ideal post op. Pt at high nutrition risk r/t age greater than 65y, however, no immediate nutrition concerns at this time. Will monitor for changes.[facility] Anesthesia Noteon 83-72-2423Ijlqregbjx NotePatient: ZAINA WINTERS Age: 70 years Sex: MALE [...] of POOL. Potential risks and mitigating factors werediscussed with the patient who expresses understanding.. No Complaint of nausea and vomiting. Plan Transfer/ Discharge: Patient can be discharged from PACU when criteria met. Condition stable. [Electronically Signed on: 03/02/2021 12:40 EST] Dre Santos DO [Verified on: 03/02/2021 12:40 EST] Dre Santos [facility] HospitalAnesthesia NotePatient: ZAINA WINTERS Age: 70 years Sex: MALE [...] = 20 mL, 100 mL/hr, IV Piggyback, Hammer Operator tranexamic acid: 1,000 mg = 100 mL, 300 mL/hr, IV Piggyback, Hammer Operator tranexamic acid: 1,000 mg = 100 mL, 300 mL/hr, IV Piggyback, Hammer Operator Documented Medications Documented Eliquis 5 mg [...] tab(s), PO, Daily, 30 tab(s), 0 Refill(s) hydrochlorothiazide-losartan 12.5 mg-50 mg oral tablet: 1 tab(s), [...] All Problems Atrial fibrillation / SNOMED CT 62261478 / Confirmed COVID-19 / SNOMED CT 6551199847 / Confirmed Diabetes / SNOMED CT 426544267 / Confirmed FH: hypertension / SNOMED CT 609532225 / Confirmed 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 Comments: 02/04/2021 10:08 Oliva Van RN surgery [...] review ECG interpretation: Normal sinus rhythm. Plan [place] [employer]esthesiologists#(ASA) physical status classification: Class III. Anesthetic Preoperative Plan Anesthesia: General. , Regional Adductor canal/iPACK blocks. Anesthetic plan, risks, benefits, and alternatives discussed with the patient and/or family. Risks discussed: including block. Patient verbalized understanding. Informed consent was given. Consent was signed by the patient. Discussed SAB vs. GETA, however thepatient took Eliquis < 72 hours ago and therefore SAB is contraindicated.. Anesthetic technique:General anesthesia, Regional anesthesia. [Electronically Signed on: 03/02/2021 09:12 EST] Aiden Santos (more content not included)...[facility] Intraoperative Recordon [id number] Intraoperative RecordMAGR Intra-Op Record Summary Primary Physician: Finalized Date/Time: 03/02/21 08:23:07 Pt. Name: ZAINA WINTERS./Sex: 1950 MALE Med Rec #: [id number] Physician: DAVID AWAD Financial #: [id number] Pt. Type: D Room/Bed: / Admit/Disch: 03/02/21 [...] Draper, Lora RN Role Performed Anesthesiologist of Forming Department Supervisor Forming Department Supervisor Record Time In 03/02/21 07:33:00 03/02/21 07:33:00 [...] Performs skin preparation Im.270.1 Implements protective measures toprevent skin and tissue injury due to chemical [...] Yes Airway Device Na (more content not included)...[facility] PACU Recordon [id number] PAC[facility]TEM[facility] Summary Primary Physician: DAVID AWAD Finalized Date/Time: 03/02/21 13:11:26 Pt. Name: ZAINA WINTERS/Sex: 1950 MALE Med Rec #: [id number] Physician: DAVID AWAD Financial #: [id number] Pt. Type: D Room/Bed: [facility]/1 Admit/Disch: 03/02/21 05:52:00 - Institution: PACU Case Times MAGR Entry 1 In PACU I 03/02/21 12:07:00 Discharge from PACU 03/02/21 12:58:00 I Last Modified By: Rosy Gaxiola RN 03/02/21 12:58:08 General Comments: Pt stable. VS stable. Pain level 8/10. Report given to LESLEY Velásquez at bedside. Finalized By: Rosy Gaxiola RN Document Signatures Signed By: Rosy Gaxiola RN 03/02/21 13:11[facility] Pre[facility] Recordon [id number] Preoperative RecordTEMPE [facility] Pre-Op Record Summary Primary Physician: DAVID AWAD Finalized Date/Time: 03/02/21 08:24:03 Pt. Name: ZAINA WINTERS/Sex: 1950 MALE Med Rec #: [id number] Physician: DAVID AWAD Financial #: [id number] Pt. Type: D Room/Bed: / Admit/Disch: 03/02/21 [...] ready for surgery. The patient remains free froms/s of injury. Patient/family express understanding of plan of care and participate in decisions affectinghis or her perioperrative plan of care. Allergies documented appropriately. Patient identifiers and consent correct. General Comments: Pt arrives to w ambulatory. Pt has #7 pain in left knee, Pt denies cp, cough or flu like symptoms. Pt is sob with ambulation which is normal. Pt denies pacemaker/defibillator or sleep apnea. Finalized By: Rita Molina RN Document Signatures Signed By: Rita Molina RN 03/02/21 08:24[facility] Glucose Levelon 87-42-9171Uicvmeg [Mass/Vol]177 mg/aTBgcc36-488Xbcimsxe16 Anderson StreetComment on above:Performed By: #### [id number] #### [facility] (DEFAULT) [address] [place] [address] 19669Tuzjafh [Mass/Vol]138 mg/bWTipu97-849Ztqhdpiv[address] Comment on above:Performed By: #### [id number] ####[facility] (DEFAULT)[address] [place] [address] 30248Wpwywue Handouton 03-02-2021 Patient HandoutPOST OPERATIVE TOTAL KNEE/HIP DISCHARGE INTRUCTIONS SURGEONS WRITTEN [...] your doctor immediately or go to the emergencyroom. How can I prevent DVT? You should keep active. Moving the ankle and foot and bending the knee as tolerated when you are inbed and walking as tolerated. Take medication, especially [...] up every 2 hours while awake and walkaround with walker for 1 to 2 minutes. #7 Flex and extend knee over the side of the bed 10?4 times a day #8 follow up in office with physician oceanographer assistant Justo Redd as scheduled #9 [facility] will be contacting you within the next 24 hours to set up home therapy visits #11 You have been given a prescription for Percocet, Percocet is narcotic, narcotics are addictive.If you feel you have problems with addiction please feel free to contact Dr. Awad, your family physician, or proceed to the nearest hospital's emergency services department.[facility] AndersonXR Knee One or Two Views Lefton 49-84-6501DW Knee One or Two Views LeftEXAM: XR Knee One or Two Views Left [...] Anderson Kaiser MD 03/02/21 1:56 pm Technologist: [facility]ARL[facility]2019 Novel Coronavirus (CoVID-19), JULISSA LCon 67-62-2656VHQL-CoV-2 (COVID-19) RNA JULISSA+probe Ql (Unsp spec)Not detected Invalid Interpretation CodeNot [facility] HospitalComment on above:Order Comment: [id number] Comment: This nucleic acid amplification test was developed and its performance characteristics determined by [facility]. Nucleic acid amplification tests include RT- PCR [...] detected) result in this assay. Performed At: [address] [id number] Zay Landa PhD Ph:[phone] By: #### [id number], [id number], [id number] #### [facility] ([facility]) [address] [place] [address] 76786Bjuzddjo Note - Nurseon 60-58-7737Irquyyus Note - Nurse Pre-op call for 03-02-2021 surgery made- patient informed of arrival time of 0600 tomorrow ,NPO after midnight except for any medication that he was instructed to take in morning, hibiclens shower x2-patient with understanding. [Electronically Signed on: 03/01/2021 09:42 EST] Rita Molina RN [Verified on: 03/01/2021 09:42 EST] Tracy Rita RNOur Lady of Mercy Hospital - AndersonProgress Note - Nurseon 26-39-7870Zxzsmkvm Note - NursePAT review done per Dr. Mccauley, no orders received. [Electronically Signed on: 02/08/2021 10:37 EST] Oliva Rabago RN [Verified on: 02/08/2021 10:37 EST] Oliva Rabago RNOur Lady of Mercy Hospital - Anderson.Auto Diff 1on 43-85-6464Agkt Kay %10 % Normal1-12Magruder HospitalComment on above:Performed By: #### [id number], [id number], [id number] ####[facility] (DEFAULT)[address] [place] [address] 32736Mjnz Abs#0.0 h08Hticxh5.0-0.2Magruder HospitalComment on above:Performed By: #### [id number], [id number], [id number] ####[facility] (DEFAULT)[address] [place] [address] 20193Otgvqsosz/100 WBC (Bld)0.3 %Normal0.2-2.0Magruder HospitalComment on above:Performed By: #### [id number], [id number], [id number] ####[facility] (DEFAULT)[address] [place] [address] 76771Jne Abs# 0.1 v10Cdqcsu2.0-0.4Magruder HospitalComment on above:Performed By: #### [id number], [id number], [id number] ####[facility] (DEFAULT)[address] [place] [address] 50983Bncfuqlfasy/100 WBC (Bld)1.1 %Normal0.9-4.0Magruder HospitalComment on above:Performed By: #### [id number], [id number], 9757614 ####[facility] (DEFAULT)[address] [place] [address] 15187Ocuzf Abs# 2.0 f27Yfblvy0.3-2.9[facility] HospitalComment on above:Performed By: #### [id number], [id number], [id number] ####[facility] (DEFAULT)[address] [place] [address] 97339Tbovpirbtxk/100 WBC (Bld)27 %Nlgwku96-63Ygwgukwl HospitalComment on above:Performed By: #### [id number], [id number], 8333817 ####[facility] (DEFAULT)[address] [place] [address] 60381Aatn Abs# 0.7 i87Vtjsqo8.0-0.8[facility] HospitalComment on above:Performed By: #### [id number], [id number], [id number] ####[facility] (DEFAULT)[address] [place] [address] 58558Efzm Abs#4.5 b53Qmhweu8.5-9.2Magrmccullough-[facility] Hospital Comment on above:Performed By: #### [id number], [id number], 8240492 ####[facility] (DEFAULT)[address] [place] [address] 45849Kfvyzhbsldi/100 WBC (Bld)62 %Cnvzbi20-35Rabczuda HospitalComment on above:Performed By: #### [id number], [id number], [id number] ####[facility] (DEFAULT)[address] [place] [address] 09593VQT Standardon 67-92-1684sJBX Non AA>60Invalid Interpretation CodeSelect Medical [facility] Rehabilitation Hospital HospitalComment on above:Performed By: #### [id number], [id number], 2459596 ####[facility] (DEFAULT)[address] [place] [address] 04759iUYV AA>60Invalid Interpretation CodeSelect Medical [facility] Rehabilitation Hospital HospitalComment on above:Result Comment: Chronic Kidney disease could be indicated at eGFRs of less than 60 ml/min/1.73m2. Kidney Failure is indicated at less than 15 ml/min/1.14v6Fxzjvctbw By: #### [id number], [id number], 3251605 ####[facility] (DEFAULT)[address] [place] [address] 75190Yrgwp gap [Moles/Vol]14.0 mmol/LNormal5.0-19.0[facility] HospitalComment on above:Performed By: #### [id number], [id number], 2877082 ####[facility] (DEFAULT)[address] [place] [address] 53136Vyahdub [Mass/Vol]9.5 mg/dLNormal8.9-10.3[facility] HospitalComment on above:Performed By: #### [id number], [id number], 6013582 ####[facility] (DEFAULT)[address] [place] [address] 81568Mvameiga [Moles/Vol]99 mmol/FXpd444-384Cftzagac HospitalComment on above:Performed By: #### [id number], 99019136, 5790707 ####[facility] (DEFAULT)[address] [place] [address] 42247UG8 [Moles/Vol]28 mmol/DJymnpw55-56Klvwxyqi Hospital Comment on above:Performed By: #### [id number], 99803308, 9508581 ####[facility] (DEFAULT)[address] [place] [address] 26923Kcqqalkugi [Mass/Vol] 0.89 mg/dLLow0.90-1.30[facility] HospitalComment on above:Performed By: #### [id number], 48125390, 9768807 ####[facility] (DEFAULT)[address] [place] [address] 40126Yoefgwi [Mass/Vol]135.0 mg/vOCmna90.0-118.0[facility] HospitalComment on above:Performed By: #### [id number], 82102615, 0477410 ####[facility] (DEFAULT)[address] [place] [address] 01770Xwbkjafvhv 278 mOsm/LInvalid Interpretation CodeSelect [facility] HospitalComment on above:Performed By: #### [id number], 75514098, 8449389 ####[facility] (DEFAULT)[address] [place] [address] 11800Vbiqwfqze [Moles/Vol]4.1 mmol/LNormal3.6-5.1 [facility] HospitalComment on above:Performed By: #### [id number], 46724303, 3460289 ####[facility] (DEFAULT)[address] [place] [address] 93901 Sodium [Moles/Vol]137.0 mmol/SMdnvrw133.0-144.0[facility] HospitalComment on above:Performed By: #### [id number], 63047557, 5590385 ####[facility] (DEFAULT)[address] [place] [address] 81642Wybu nitrogen [Mass/Vol]19 mg/dL Normal8-26C[facility] Va Medical CenterComment on above:Performed By: #### [id number], 86458573, 5014508 ####[facility] (DEFAULT)[address] [place] [address] 30124Xbnz nitrogen/Creatinine [Mass ratio]21.0 mg/mgHigh4.6-16.2[facility] HospitalComment on above:Performed By: #### [id number], 90344391, 7392280 ####[facility] (DEFAULT)[address] [place] [address] 54727CJR w/ Auto Diffon 16-29-2864Jwoiwomrnag distribution width (RBC) [Ratio]13.4 %Normal 11.5-15.0[facility] Va Medical CenterComment on above:Performed By: #### [id number], 07144237, 6986190 ####[facility] (DEFAULT)[address] [place] [address] 55357Cysrcwjtav (Bld) [Volume fraction]48.0 %Xkdvlt19.8-51.9[facility] Comment on above:Performed By: #### [id number], 56243833, 2390070 ####[facility] (DEFAULT)[address] [place] [address] 96881Tjqphqgndz (Bld) [Mass/Vol]15.5 g/fVPpawum94.8-17.7[facility] HospitalComment on above:Performed By: #### [id number], 72675304, 5336097 ####[facility] (DEFAULT)[address] [place] [address] 14767Uaoha WBC7.3 t84Mhkqomm Interpretation CodeSelect [facility] HospitalComment on above:Performed By: #### [id number], 72604533, 9022594 ####[facility] (DEFAULT)[address] [place] [address] 53837Efh Diff? AutoNormalSelect Medical [facility] HospitalComment on above:Performed By: #### [id number], 39119632, 4374532 ####[facility] (DEFAULT)[address] [place] [address] 79817LAS (RBC) [Entitic mass]30 mfXqxnbn77-36Aosxhtur HospitalComment on above:Performed By: #### [id number], 11346118, 3375269 ####[facility] (DEFAULT)[address] [place] [address] 85268DKXJ (RBC) [Mass/Vol]32 g/dL Lvaxdr56-81Dukxryel HospitalComment on above:Performed By: #### [id number], 47616896, 0696003 ####[facility] (DEFAULT)[address] [place] [address] 13516IYG (RBC) [Entitic vol]94 vXZimbht66-288Zlzczkqf HospitalComment on above:Performed By: #### [id number], 76914043, 0666082 ####[facility] (DEFAULT)[address] [place] [address] 69267Gzearohv874 z33Sxbpca703-910 [facility] HospitalComment on above:Performed By: #### [id number], 47573590, 0429824 ####[facility] (DEFAULT)[address] [place] [address] 54252 Platelet mean volume (Bld) [Entitic vol]10.3 fLHigh6.3-10.2[facility] Comment on above:Performed By: #### [id number], [id number], 3782566 ####[facility] (DEFAULT)[address] [place] [address] 32004BAM7.13 o91Jwrcvx 3.70-5.30[facility] CenterComment on above:Performed By: #### [id number], 96749271, 2085551 ####[facility] (DEFAULT)[address] [place] [address] 08518LAF7.3 i21Uxbjhg5.5-10.5[facility] Medical CenterComment on above:Performed By: #### [id number], 21824671, 0030715 ####[facility] (DEFAULT)[address] [place] [address] 77071WV w Culture if Ind Standardon 83-63-1301Makzzbhobj UANormalCincinnati Va Medical CenterComment on above:Performed By: #### [id number] #### [facility] (DEFAULT) [address] [place] [address] 08792Zvere (U)YellowNoPaulding County HospitalComment on above: Performed By: #### [id number] #### [facility] (DEFAULT) [address] [place] [address] 89300Bfadctm?NoNormalCincinnati Va Medical CenterComment on above:Result Comment: Result created by rule GL_MAGR_ADD_UA_CULT1 Result created by rule GL_MAGR_ADD_UA_CULT1Performed By: #### [id number] #### [facility] (DEFAULT) [address] [place] [address] 26158Icqniuz (U) [Mass/Vol]NegativeNoPaulding County Hospital Comment on above:Performed By: #### [id number] #### [facility] (DEFAULT) [address] [place] [address] 57522Sziaawi Ql (U)NegativeNormalMagruder HospitalComment on above:Performed By: #### [id number] #### [facility] (DEFAULT) [address] [place] [address] 76310Qzqlc?Not IndicatedNormalMagruder HospitalComment on above:Result Comment: Result created by rule GL_MAGR_ADD_UA_MICROPerformed By: #### [id number] #### [facility] (DEFAULT) [address] [place] [address] 08039QH BilirubinNegativeNormalMagruder HospitalComment on above:Performed By: #### [id number] #### [facility] (DEFAULT) [address] [place] [address] 77967NR BloodNegativeNormalNEGATIVEMagruder HospitalComment on above:Performed By: #### [id number] #### [facility] (DEFAULT) [address] [place] [address] 68638SA ClarityCLEARNormalCLEARMagruder HospitalComment on above:Performed By: #### [id number] #### [facility] (DEFAULT) [address] [place] [address] 85744VC Leuk EstNegativeNormalNEGATIVEMagruder HospitalComment on above:Performed By: #### [id number] #### [facility] (DEFAULT) [address] [place] [address] 82224JA NitriteNegativeNormalNEGATIVEMagruder HospitalComment on above:Performed By: #### [id number] #### [facility] (DEFAULT) [address] [place] [address] 16112BL pH6.1Pznyqp8-3Rntssopo HospitalComment on above: Performed By: #### [id number] #### [facility] (DEFAULT) [address] [place] [address] 30448BC ProteinNegativeNormalNEGATIVEMagruder HospitalComment on above:Performed By: #### [id number] #### [facility] (DEFAULT) [address] [place] [address] 51707YM Spec Grav>=1.211Rxcfag3.001-1.035[facility] Comment on above:Performed By: #### [id number] #### [facility] (DEFAULT) [address] [place], [place] [address]ZR Urobilinogen0.2 mg/dLNormal0.2-1.0[facility] Comment on above:Performed By: #### [id number] #### [facility] (DEFAULT) [address] [place] [address] 08948Obtgj SourceClean CatchNormalCincinnati Va Medical CenterComment on above:Performed By: #### [id number] #### [facility] (DEFAULT) [address] [place], [place] [address]XP Bone Length Studies Scanogramson 56-08-5465ZD Bone Length Studies ScanogramsEXAM: XR BONE LENGTH STUDIES SCANOGRAMS HISTORY: Pre-op. [...] John Mckenna MD 02/08/21 7:27 am Technologist: [facility] w doppler w color complete Ordered By: Ej Foster on [id number] [facility] Transthoracic Echocardiography Report (TTE) Patient Name HEBERLING Date of Study 09/23/2020 ZAINA Morales Date of 1950 Gender Male Age 69 year(s) Race Room Number Height: 72 inch, 182.88 cm Corporate ID [id number] Weight: 288 pounds, 130.6 kg # Patient Acct [id number] BSA: 2.49 m^2 BMI: 39.06 # kg/m^2 MR # [id number] [employer] Debi Lopez Interpreting Physician Ej Foster Fellow Referring Nurse Practitioner Interpreting Referring Physician Ej Foster Type of Study TTE procedure:2D Echocardiogram, M-Mode, Doppler, Color Doppler. Procedure Date Date: 09/23/2020 Start: 11:32 AM Study Location: [facility] Indications:Atrial fibrillation. History / Tech. Comments: [...] TR Velocity: 2.17 m/s Peak TR Gradient: 18.31837 mmHg Estimated RA Pressure: 3 mmHg Estimated PASP: 21.79 mmHg Diastology / Tissue Doppler Lateral Wall E' velocity:0.07 m/s Lateral Wall E/E':7.23 [employer] Work Phone: e, [facility] Incoming Cardio Results From [facility] [facility] [employer] - 09/23/2020 5:27 PM EDT [facility] Transthoracic Echocardiography Report (TTE) Patient Name HEBERLING Date of Study 09/23/2020 ZAINA D Date of 1950 Gender Male Age 69 year(s) Race Room Number Height: 72 inch, 182.88 cm Corporate ID [id number] Weight: 288 pounds, 130.6 kg # Patient Acct [id number] BSA: 2.49 m^2 BMI: 39.06 # kg/m^2 MR # [id number] [employer] Debi Lopez Interpreting Physician Ej Foster Fellow Referring Nurse Practitioner Interpreting Referring Physician Ej Foster Fellow Type of Study TTE procedure:2D Echocardiogram, M-Mode, Doppler, Color Doppler. Procedure Date Date: 09/23/2020 Start: 11:32 AM Study Location: [facility] Indications:Atrial fibrillation. History / Tech. Comments: [...] TR Velocity: 2.17 m/s Peak TR Gradient: 18.25089 mmHg Estimated RA Pressure: 3 mmHg Estimated PASP: 21.79 mmHg Diastology / Tissue Doppler Lateral Wall E' velocity:0.07 m/s Lateral Wall E/E':7.23[facility] Phone: [facility] Phone: basic Metabolic Panelon 90-56-9483Paxpv gap [Moles/Vol]10 mmol/L9 - 17 mmol/LMCleveland Clinic [facility], KYBun/Cre Vdggu52QkxiTmdtr Health- [place], KYCalcium [Mass/Vol]9.7 mg/dL8.6 - 10.4 mg/dLGuernsey Memorial Hospital, [place] Chloride [Moles/Vol]101 mmol/L98 - 107 mmol/[facility], KYCO2 [Moles/Vol] 28 mmol/L20 - 31 mmol/LMCleveland Clinic [facility], KYCreatinine [Mass/Vol]0.89 mg/dL0.7 - 1.2 mg/dLGuernsey Memorial Hospital, KYGFR >60>60 mL/minGuernsey Memorial Hospital, KYGFR Non->60>60 mL/minGuernsey Memorial Hospital, KYGlucose [Mass/Vol]101 mg/xYXwht47 - 99 mg/dLGuernsey Memorial Hospital, KYInterpretation and review of laboratory resultsAbnormalGuernsey Memorial Hospital, KYPotassium [Moles/Vol]4.3 mmol/L3.7 - 5.3 mmol/[facility], KYSodium [Moles/Vol]139 mmol/L135 - 144 mmol/L [facility], KYUrea nitrogen [Mass/Vol]19 mg/dL8 - 23 mg/dLGuernsey Memorial Hospital, KYLipid Panelon 57-24-8455Ielqswhapjw [Mass/Vol]162 mg/dL<200[facility], NMComment on above: Cholesterol Guidelines: <200 Desirable 200-240 Borderline >240 Undesirable Cholesterol in HDL [Mass/Vol]41 mg/dL>40[facility], NMComment on above: HDL Guidelines: <40 Undesirable 40-59 Borderline >59 Desirable Cholesterol in LDL [Mass/Vol]102 mg/dL0 - 130 mg/dLGuernsey Memorial Hospital, NMComment on above: LDL Guidelines: <100 Desirable 100-129 Near to/above Desirable 130-159 Borderline >159 Undesirable Direct (measured) LDL and calculated LDL are not interchangeable tests. Cholesterol in VLDL [Mass/Vol]NOT REPORTED1 - 30 mg/dLGuernsey Memorial Hospital, [place] Cholesterol.total/Cholesterol in HDL [Mass ratio]4 {ratio}<5[facility], [place] Triglyceride [Mass/Vol]97 mg/dL<150[facility], KYComment on above: Triglyceride Guidelines: <150 Desirable 150-199 Borderline 200-499 High >499 Very high Based on AHA Guidelines for fasting triglyceride, November 2011. Metabolic Panelon 02-14-3295XRA/1.73 sq M predicted among non-blacks MDRD (S/P/Bld) [Vol rate/Area][facility], NMComment on above:Stage 1: Some kidney damage normal GFR Stage 2: Mild kidney damage GFR 60-89 Stage 3: Moderate kidney damage GFR 30-59 Stage 4: Severe kidney damage GFR 15-29 Stage 5: Severe kidney damage GFR <15 ESRD - chronic treatment by dialysis or transplant Average GFR for 70 or more years old: 75 mL/min/1.73sq m Chronic Kidney Disease: <60 mL/min/1.73sq m Kidney failure: <15 mL/min/1.73sq m eGFR calculated using average adult body mass. Additional eGFR calculator available at: http://www.[employer]/multiple_crcl_2012.htm Basic Metabolic Panelon 77-99-2669Vrrpt gap [Moles/Vol]9 mmol/L9 - 17 mmol/L [facility], KYBun/Cre Fzdsf63NtebxGuernsey Memorial [facility], KYCalcium [Mass/Vol]9.6 mg/dL8.6 - 10.4 mg/dLGuernsey Memorial Hospital, KYChloride [Moles/Vol]101 mmol/L98 - 107 mmol/LMCleveland Clinic [facility]ron General, KYCO2 [Moles/Vol]29 mmol/L20 - 31 mmol/LMCleveland Clinic [facility], KYCreatinine [Mass/Vol]0.76 mg/dL0.7 - 1.2 mg/dLGuernsey Memorial Hospital, KYGFR >60>60 mL/minGuernsey Memorial Hospital, KYGFR Non->60>60 mL/minGuernsey Memorial Hospital, KYGlucose [Mass/Vol]118 mg/bJRlxa91 - 99 mg/dLGuernsey Memorial Hospital, KYInterpretation and review of laboratory resultsAbnormalGuernsey Memorial Hospital, KYPotassium [Moles/Vol]4.7 mmol/L3.7 - 5.3 mmol/LMWindsor, KYSodium [Moles/Vol]139 mmol/L135 - 144 mmol/LMCleveland Clinic [facility], NMUrea nitrogen [Mass/Vol]12 mg/dL8 - 23 mg/dLGuernsey Memorial Hospital, NMCBCon 32-25-7736Thppwqpxuyb distribution width (RBC) [Ratio]14.2 %11.8 - 14.4 %[place] Hematocrit (Bld) [Volume fraction]43.4 %40.7 - 50.3 %[place] Hemoglobin (Bld) [Mass/Vol]13.4 g/dL13 - 17 g/dLApplegate, KYMCH (RBC) [Entitic mass]28.9 pg25.2 - 33.5 pgApplegate, KYMCHC (RBC) [Mass/Vol]30.9 g/dL28.4 - 34.8 g/dLApp[place], KYMCV (RBC) [Entitic vol]93.7 fL82.6 - 102.9 fLApplegate, KYPlatelet mean volume (Bld) [Entitic vol]9.9 fL8.1 - 13.5 fLApplegate, KYPlatelets (Bld) [#/Vol]217 10*3/[facility], NMRBC (Bld) [#/Vol]4.63 10*6/uL4.21 - 5.77 m/[place], KYWBC (Bld) [#/Vol]0.0 10*3/uL0.0 per 100 WBCApplegate, KYWBC (Bld) [#/Vol]5.7 10*3/[facility] Complete [facility]D W Doppler W Coloron [id number] Transthoracic Echocardiography Report (TTE) Patient Name HEBERLING Date of Study 01/22/2020 ZAINA Morales Date of 1950 Gender Male Age 69 year(s) Race Room Number Height: 73 inch, 185.42 cm Corporate ID [id number] Weight: 273 pounds, 123.8 kg # Patient Acct [id number] BSA: 2.46 m^2 BMI: 36.02 # kg/m^2 MR # [id number] [employer] A[employer] Nini Todd Interpreting Physician Ej Foster Fellow Referring Nurse Practitioner Interpreting Referring Physician Ej Foster Type of Study TTE procedure:2D Echocardiogram, M-Mode, Doppler, Color Doppler.Procedure Date Date: 01/22/2020 Start: 09:22 AM Study Location: [facility] Indications:Atrial fibrillation, Dyspnea/SOB and History of [...] Mild pulmonary hypertension with an estimated right ventricularsystolic pressure of 33 mmHg. Diastolic function cannot be properly assessed due to atrial fibrillation. No prior studies were available for comparison. Signature FINDINGS Left Atrium The left atrium is severely dilated (>40) with aleft atrial volume index of 42 ml/m2. Left [...] m/s Peak TR Gradient: 30.0304 mmHg Estimated RAPressure: 3 mmHg Estimated PASP: 33.03 mmHg Diastology / Tissue Doppler Lateral Wall E' velocity:0.11 m/s Lateral Wall E/E':6.91[facility], Abdirahman Bruce Incoming Cardio Results From [facility]/Ge - 01/22/2020 5:08 PM EST [facility] Transthoracic Echocardiography Report (TTE) Patient Name SINGH Date of Study 01/22/2020 ZAINA Morales Date of 1950 Gender Male Age 69 year(s) Race Room Number Height: 73 inch, 185.42 cm Corporate ID [id number] Weight: 273 pounds, 123.8 kg # Patient Acct [id number] BSA: 2.46 m^2 BMI: 36.02 # kg/m^2 MR # [id number] [employer] Aide PerezNini Interpreting Physician Ej Foster Fellow Referring Nurse Practitioner Interpreting Referring Physician Ej Foster Fellow Type of Study TTE procedure:2D Echocardiogram, M-Mode, Doppler, Color Doppler. Procedure Date Date: 01/22/2020 Start: 09:22 AM Study Location: [facility] Indications:Atrial fibrillation, Dyspnea/SOB and History of [...] Lateral Wall E' velocity:0.11 m/s Lateral Wall E/E':6.91[facility] [employer], CaipiaobaoHemoglobin A1Con [id number] [Mass/Vol]123 mg/dLMercy Health- [place], KYComment on above:The ADA and AACC recommend providing the estimated average glucose result to permit better patient understanding of their HBA1c result. HbA1c (Bld) [Mass fraction]5.9 %4 - 6 %[place], KYMetabolic Panelon [id number]/1.73 sq M predicted among non-blacks MDRD (S/P/Bld) [Vol rate/Area][place], KYComc.s. [facility] on above:Stage 1: Some kidney damage normal GFR Stage 2: Mild kidney damage GFR 60-89 Stage 3: Moderate kidney damage GFR 30-59 Stage 4: Severe kidney damage GFR 15-29 Stage 5: Severe kidney damage GFR <15 ESRD - chronic treatment by dialysis or transplant Average GFR for 70 or more years old: 75 mL/min/1.73sq m Chronic Kidney Disease: <60 mL/min/1.73sq m Kidney failure: <15 mL/min/1.73sq m eGFR calculated using average adult body mass. Additional eGFR calculator available at: http://www.[employer]/multiple_crcl_2012.htm Troponin Ion [id number] I.cardiac [Mass/Vol]NOT REPORTEDApp[place], KYTrhardin county medical centernin T.cardiac [Mass/Vol]NOT REPORTED<0.03 ng/mLApp[place], [place] Troponin, High Rphvtbrzfad05 ng/L0 - 22 ng/LMercy Jbsa [place], KYComment on above: High Sensitivity Troponin values cannot be compared with other Troponin methodologies. Patients with high levels of Biotin oral intake (i.e >5mg/day) may have falsely decreased Troponin levels. Samples collected within 8 hours of biotin intake may require additional information for diagnosis. BNPon [id number] peptide B (Bld) [Mass/Vol]595.0 pg/mLNormal<=900.0 The [facility] HospitalComment on above:Performed By: #### TROP, BNP, CMP, CRP #### [facility] [address] [place] [address] Cheryl KarenCBC AUTO DIFFon [id number] (Bld) [#/Vol]0.0 103/ulNormal 0.0-0.1The [facility]ultman HospitalComment on above:Performed By: #### CBC #### [facility] [address] [place] [address] Cheryl KarenBasophils/100 WBC (Bld)0.1 %Critically low0.2-2.0The [facility]ultman HospitalComment on above:Performed By: #### CBC #### [facility] [address] [place] [address] Cheryl KarenEosinophils (Bld) [#/Vol]0.0 103/ulNormal0.0-0.7The [facility]ultman HospitalComment on above:Performed By: #### CBC #### [facility] [address] [place] [address] Cheryl KarenEosinophils/100 WBC (Bld)0.0 %Critically low0.9-7.0The [facility]man HospitalComment on above:Performed By: #### CBC #### [facility] [address] [place] [address] Cheryl KarenErythrocyte distribution width (RBC) [Ratio]12.9 %Tsbiur54.0-15.0The [facility]ultman HospitalComment on above:Performed By: #### CBC #### [facility] [address] [place] [address] Cheryl KarenHematocrit (Bld) [Volume fraction]45.2 %Aaxayy49.0-54.0The [facility]man HospitalComment on above:Performed By: #### CBC #### [facility] [address] [place] [address] Cheryl KarenHemoglobin (Bld) [Mass/Vol]15.1 g/sQMglzqy42.0-18.0The [facility]man HospitalComment on above:Performed By: #### CBC #### [facility] [address] [place] [address] Cheryl KarenIG #0.06 10e3/ulCritically high0.00-0.03The [facility]ultman HospitalComment on above:Performed By: #### CBC #### [facility] [address] [place] [address] Cheryl KarenIG %0.6 %Critically high0.0-0.5The [facility]ultman HospitalComment on above:Performed By: #### CBC #### [facility] [address] [place] [address] Cheryl KarenLymphocytes (Bld) [#/Vol]1.0 103/ulCritically low1.2-3.8The [facility]man HospitalComment on above:Performed By: #### CBC #### [facility] [address] [place] [address] Cheryl KarenLymphocytes/100 WBC (Bld)10.1 %Critically low20.5-60.0The [facility]ultman HospitalComment on above:Performed By: #### CBC #### [facility] [address] [place] [address] Cheryl KarenMANUAL DIFF REQNONormalThe Aultman HospitalComment on above: Performed By: #### CBC #### [facility] [address] [place] [address] Cheryl KarenMCH (RBC) [Entitic mass]30.0 jiNcaajp32.9-34.0[facility] Comment on above:Performed By: #### CBC #### [facility] [address] [place] [address] Cheryl KarenMCHC (RBC) [Mass/Vol]33.4 g/oTVmzpsg81.9-35.2[facility] Comment on above:Performed By: #### CBC #### [facility] [address] [place] [address] Cheryl KarenMCV (RBC) [Entitic vol]89.7 uJBoxgcn98.0-94.0[facility] Comment on above:Performed By: #### CBC #### [facility] [address] [place] [address] Cheryl KarenMonocytes (Bld) [#/Vol]0.3 103/ulNormal0.3-0.8ThTrumbull Memorial Hospital Comment on above:Performed By: #### CBC #### [facility] [address] [place], [place] [address] Cheryl KarenMonocytes/100 WBC (Bld)3.4 %Normal1.7-12.0[facility] Comment on above:Performed By: #### CBC #### [facility] [address] [place] [address] Cheryl KarenNeutrophils (Bld) [#/Vol]8.3 103/ulCritically high1.4-6.5The [facility] HospitalComment on above:Performed By: #### CBC #### [facility] [address] [place] [address] Cheryl KarenNeutrophils/100 WBC (Bld)85.8 %Critically high43.0-75.0The [facility]man HospitalComment on above:Performed By: #### CBC #### [facility] [address] [place] [address] Cheryl KarenPlatelet mean volume (Bld) [Entitic vol]9.7 fLNormal9.5-13.5The [facility]man HospitalComment on above:Performed By: #### CBC #### [facility] [address] [place] [address] Cheryl KarenPlatelets (Bld) [#/Vol]270 103/muOivnau322-865Nqw [facility] Comment on above:Performed By: #### CBC #### [facility] [address] [place] [address] Cheryl KarenRBC (Bld) [#/Vol]5.04 106/ulNormal4.70-6.10[facility] Comment on above:Performed By: #### CBC #### [facility] [address] [place] [address] Cheryl KarenWBC (Bld) [#/Vol]9.7 103/ulNormal4.0-11.0[facility] Comment on above:Performed By: #### CBC #### [facility] [address] [place] [address] Cheryl KarenCRPon [id number] [Mass/Vol]12.3 mg/dLCritically high<=1.0The [facility] HospitalComment on above:Performed By: #### CBC #### [facility] [address] [place], [place] [address] Cheryl MenaenCTA CHEST WO W CONon [id number] CHEST WO W CONCTA CHEST WO W CON, 12/16/2019 3:37 AM [...] Electronically authenticated by: RUPESH ULRICH Date: 2019-12-16 05:43NormFisher-Titus Medical CenterD-DIMERon [id number]-DIMER COMMENTSSEE BELOWUniversity Hospitals Geneva Medical CenterComment on above:Result Comment: Increases in D-Dimer concentration observed with thromboembolic events [...] thrombolytic or anticoagulant therapy, stress, and generalizd hospitalization.Performed By: #### DDIM, PT, PTT #### [facility] [address] [place], [place] [address] Cheryl SrinivasanFibrin D-dimer FEU IA (Bld) [Mass/Vol]0.84 ug/mLCritically high 0.19-0.50The [facility] HospitalComment on above:Result Comment: test repeated critcal value verifiedPerformed By: #### DDIM, PT, PTT #### [facility] [address] [place] [address] Cheryl KarenLACTATE/LACTIC ACIDon [id number] [Moles/Vol]1.8 mmol/LNormal 0.7-2.0The [facility] HospitalComment on above:Performed By: #### LACT #### [facility] [address] [place] [address] Cheryl KarenPROF 14(COMP METB)on 27-21-8339Zqyhsfr [Mass/Vol]3.2 g/dLCritically low3.5-5.0The [facility] HospitalComment on above:Performed By: #### TROP, BNP, CMP, CRP #### [facility] [address] [place] [address] Cheryl KarenAlbumin/Globulin [Mass ratio]0.8 {ratio}NormalChillicothe Hospital Comment on above:Performed By: #### TROP, BNP, CMP, CRP #### [facility] [address] [place] [address] Cheryl KarenALP [Catalytic activity/Vol]85 U/LHlxmpt21-241EqgChillicothe Hospital Comment on above:Performed By: #### TROP, BNP, CMP, CRP #### [facility] [address] [place] [address] Cheryl KarenALT [Catalytic activity/Vol]63 U/QBcjgcs00-50Zvw [facility] Comment on above:Performed By: #### TROP, BNP, CMP, CRP #### [facility] [address] [place] [address] Cheryl KarenAnion gap [Moles/Vol]14.2 mmol/LNormalThe [facility]ultman HospitalComment on above:Performed By: #### TROP, BNP, CMP, CRP #### [facility] [address] [place] [address] Cheryl KarenAST [Catalytic activity/Vol]53 U/GAsgivn67-66Syw [facility] Comment on above:Performed By: #### TROP, BNP, CMP, CRP #### [facility] [address] [place] [address] Cheryl KarenBilirubin Ql (U)1.0 mg/dLNormal0.2-1.3The [facility] HospitalComment on above:Performed By: #### TROP, BNP, CMP, CRP #### [facility] [address] [place] [address] Cheryl KarenCalcium [Mass/Vol]9.0 mg/dLNormal8.4-10.2[facility] Comment on above:Performed By: #### TROP, BNP, CMP, CRP #### [facility] [address] [place] [address] Cheryl KarenChloride [Moles/Vol]96 mmol/LCritically cpc77-636JldChillicothe HospitalComment on above:Performed By: #### TROP, BNP, CMP, CRP #### [facility] [address] [place] [address] Cheryl KarenCO2 [Moles/Vol]25.8 mmol/LRwpjsj85.0-30.0[facility] Comment on above:Performed By: #### TROP, BNP, CMP, CRP #### [facility] [address] [place] [address] Cheryl KarenCreatinine [Mass/Vol]0.90 mg/dLNormal0.66-1.25[facility] Comment on above:Performed By: #### TROP, BNP, CMP, CRP #### [facility] [address] [place] [address] Cheryl KarenEGFR-AF TOGOLESE>60Normal>=60The [facility] HospitalComment on above: Performed By: #### TROP, BNP, CMP, CRP #### [facility] [address] [place] [address] Cheryl KarenEGFR-NON AF TOGOLESE>60Normal>=60The [facility] HospitalComment on above:Performed By: #### TROP, BNP, CMP, CRP #### [facility] [address] [place], [place] [address] Cheryl KarenGlobulin (S) [Mass/Vol]4.1 g/dLNormalThTrumbull Memorial HospitalComment on above:Performed By: #### TROP, BNP, CMP, CRP #### [facility] [address] [place] [address] Cheryl KarenGlucose [Mass/Vol]146 mg/dLCritically hhts93-889Qkw [facility] Northment on above:Performed By: #### TROP, BNP, CMP, CRP #### [facility] [address] [place] [address] Cheryl KarenPotassium [Moles/Vol]4.0 mmol/LNormal3.4-5.0[facility] Comment on above:Performed By: #### TROP, BNP, CMP, CRP #### [facility] [address] [place] [address] Cheryl KarenProtein [Mass/Vol]7.3 g/dLNormal6.1-8.2The [facility] Northment on above:Performed By: #### TROP, BNP, CMP, CRP #### [facility] [address] [place] [address] Cheryl KarenSodium [Moles/Vol]132 mmol/LCritically svx843-730Kvc [facility] on above:Performed By: #### TROP, BNP, CMP, CRP #### [facility] [address] [place] [address] Cheryl KarenUrea nitrogen [Mass/Vol]18.0 mg/dLNormal9.0-20.0The [facility] Northment on above:Performed By: #### TROP, BNP, CMP, CRP #### [facility] [address] [place] [address] Cheryl KarenUrea nitrogen/Creatinine [Mass ratio]20.0 mg/mgNormProMedica Fostoria Community Hospitale [facility] HospitalComc.[facility]. [facility] on above:Performed By: #### TROP, BNP, CMP, CRP #### [facility] [address] [place] [address] Cheryl KarenPROTIMEon [id number] Coag (PPP) [Relative time]0.97 {INR}Normal The [facility] HospitalComc.s. [facility] on above:Performed By: #### DDIM, PT, PTT #### [facility] [address] [place] [address] Cheryl KarenPT Coag (PPP) [Time]PLEASE NOTE: NORMAL RANGE CHANGE 10-31-2013 DUE TO REAGENT LOT CHANGEUniversity Hospitals Geneva Medical CenterComment on above:Performed By: #### DDIM, PT, PTT #### [facility] [address] [place] [address] Cheryl KarenPT Coag (PPP) [Time]10.3 sNormal9.0-11.6The [facility] HospitalComc.s. [facility] on above:Performed By: #### DDIM, PT, PTT #### [facility] [address] [place] [address] Cheryl KarenPT Coag (PPP) [Time]SEE BELOWUniversity Hospitals Geneva Medical CenterComment on above:Result Comment: DESIRED INR: 2.0 - 3.0 CONDITIONS NOT LISTED BELOW 2.5 - 3.5 FOR PROSTHETIC HEART VALVE REPLACEMENT 2.5 - 3.5 RECURRENT THROMBOSIS Performed By: #### DDIM, PT, PTT #### [facility] [address] [place] [address] Cheryl KarstanleyPTTon [id number] Coag (Bld) [Time]PLEASE NOTE: NORMAL RANGE CHANGE 01-07-2015 DUE TO REAGENT LOT CHANGEUniversity Hospitals Geneva Medical CenterComc.s. [facility] on above:Performed By: #### DDIM, PT, PTT #### [facility] [address] [place] [address] Cheryl KarenaPTT Coag (Bld) [Time]26.0 gZeduuh46.3-36.2[facility] Comment on above:Performed By: #### DDIM, PT, PTT #### [facility] [address] [place] [address] Cheryl KarenRapid Covid-19 PCRon 50-37-0156Xszgfrac LDT InfoSEE [facility] on above:Result Comment: This test is not yet approved or cleared by the [place] Food and Drug Administration (FDA) . This test was developed by [employer], [place]. The performance character istics of this test were validated by [facility]. The results are not intended to be used as the sole means for clinical diagnosis or patient management decisions. [facility] is authorized under Clinical Laboratory Improvement Amendments (CLIA) to perform high-complexity testing. When diagnostic testing is negative, the possibility of a false negative should be considered in the context of a patients recent exposures and the presence of clinical signs and symptoms consistent with SARS-CoV-2.Performed By: #### CVDRPD #### [facility] [address] [place] [address] Cheryl MenaOdkcuVMDF-FyB-2XUDPWEKIVOY DETECTEDThe [facility] HospitalComc.s. [facility] on above: Result Comment: .Performed By: #### CVDRPD #### [facility] [address] [place] [address] Cheryl KarenTROPONIN - Ion 34-48-9725Loozwpbp I.cardiac [Mass/Vol]ng/mLNormal <=0.034Chillicothe HospitalComment on above:Performed By: #### CBC #### [facility] [address] [place] [address] Cheryl KarenTroponin I.cardiac [Mass/Vol]SEE BELOWNormalThe [facility] Comment on above:Result Comment: <0.034 ng/ml NEGATIVE 0.034-0.119 INDETERMINATE 0.120 AMI CUT OFFPerformed By: #### CBC #### [facility] [address] [place] [address] Cheryl Srinivasan Vital Signs Date TimeVital SignValuePerforming IhnqwwxklGjhxqyzs41-46-7835 12:54-0400Body .6 [facility]-Eriesara Castillo QUARRY EXTRACTION WORKER Work Phone: [facility] CenterPdtofdcpoj92-11-3591 12:54-0400Body mass index (BMI) [Ratio]42.08 kg/y8LzakbKenia Castillo QUARRY EXTRACTION WORKER Work Phone: [facility]OCo[facility] HospitalEhiodwxaii81-26-2403 12:54-0400Body tejbrc912.8 kgKenia Castillo QUARRY EXTRACTION WORKER Work Phone: [phone] [place] [address]-06-2025 12:54-0400Diastolic blood bsibenrr85 mm[Hg]Kenia Castillo QUARRY EXTRACTION WORKER Work Phone: [phone] [place] [address]-06-2025 12:54-0400Heart rate78 /min Kenia Castillo QUARRY EXTRACTION WORKER Work Phone: [phone] [place] [address]-06-2025 12:54-0400Respiratory rate18 /minSsara Castillo QUARRY EXTRACTION WORKER Work Phone: [phone] [place] [address]-06-2025 12:54-8951ZhJ7% (BldA) [Mass fraction]98 %Kenia Castillo QUARRY EXTRACTION WORKER Work Phone: [phone] [place] [address]-06-2025 12:54-0400Systolic blood xlxuunev731 mm[Hg]Kenia Castillo QUARRY EXTRACTION WORKER Work Phone: [phone] [place], [place] 3020407-22-2025 12:54-0400Body wmgtuh688.6 cmSteven Carmine DPM Work Phone: [phone] [place], [place] 6804207-22-2025 12:54-0400Body mass index (BMI) [Ratio]43.51 kg/m7Pnnvwk Rusher DPM Work Phone: [phone] [place] [address]-22-2025 12:54-0400Body .52 kgStevstanley Kendallher DPM Work Phone: [phone] [place], [place] 6804205-27-2025 13:53-0400Body uoykqu816.6 Parris Castillo QUARRY EXTRACTION WORKER Work Phone: [phone] [place] [address]-27-2025 13:53-0400Body mass index (BMI) [Ratio]43.51 kg/i3QycchKenia Castillo QUARRY EXTRACTION WORKER Work Phone: [phone] [place] [address]-27-2025 13:53-0400Body .52 kgKenia Castillo QUARRY EXTRACTION WORKER Work Phone: [phone] [place] [address]-27-2025 13:53-0400Diastolic blood mm[Hg]Kenia Castillo QUARRY EXTRACTION WORKER Work Phone: [phone] [place] [address]-27-2025 13:53-0400Heart rate61 /min Kenia Castillo QUARRY EXTRACTION WORKER Work Phone: [phone] [place], [place] [address]Lanxcpmzsu89-62-5029 13:53-3627YwC6% (BldA) [Mass fraction]96 %Kenia Castillo QUARRY EXTRACTION WORKER Work Phone: [phone] [place], [place] [address]Ivamfcfeui67-37-8849 13:53-0400Systolic blood kdvfzbve172 mm[Hg]Kenia Castillo QUARRY EXTRACTION WORKER Work Phone: [phone] [place], [place] [address]Tmhflcryte24-56-8853 13:54-0400Body olwbcs843.6 Parris Castillo QUARRY EXTRACTION WORKER Work Phone: [phone] [place], [place] [address]Jirjmepxng13-86-6156 13:54-0400Body mass index (BMI) [Ratio]42.69 kg/z4EnketKenia Castillo QUARRY EXTRACTION WORKER Work Phone: [phone] [place], [place] [address]Zirdckxhcd64-93-0116 13:54-0400Body temperature 98.91 [degF]Kenia Castillo QUARRY EXTRACTION WORKER Work Phone: [phone]04-07-2025 13:54-0400Body qmaljv539.8 kgKenia Castillo QUARRY EXTRACTION WORKER Work Phone: [phone] [place], [place] [address]Xknymuyvpy17-24-0492 13:54-0400Diastolic blood bvyeyhlj04 mm[Hg]Kenia Castillo QUARRY EXTRACTION WORKER Work Phone: [phone] [place], [place] [address]Ptxrngjdag88-86-0140 13:54-0400Heart rate68 /min Kenia Castillo QUARRY EXTRACTION WORKER Work Phone: [phone] [place], [place] [address]Tnuqudecfo49-76-0118 13:54-8497UaW6% (BldA) [Mass fraction]94 %Kenia Castillo QUARRY EXTRACTION WORKER Work Phone: [phone] [place], [place] [address]Dqshomwlrj35-56-9541 13:54-0400Systolic blood bmphatqb024 mm[Hg]Kenia Castillo QUARRY EXTRACTION WORKER Work Phone: [phone] CenterIqtljtejjt30-73-3249 12:30-0500Diastolic blood ymjdddjp80 mm[Hg]Ej Foster MD Work Phone: [facility]01-10-2025 12:30-0500Heart rate57 /minEj Foster MD Work Phone: [facility]01-10-2025 12:30-0500 Respiratory rate17 /minEj Foster MD Work Phone: [facility]01-10-2025 12:30-7384GrB2% (BldA) [Mass fraction]96 %Ej Foster MD Work Phone: [facility]01-10-2025 12:30-0500Systolic blood hxyuzbhz825 mm[Hg]Ej Foster MD Work Phone: [facility]01-10-2025 12:11-0500Body pbdivjccjwi91.8 [degF]Ej Foster MD Work Phone: [facility]01-07-2025 14:13-0500Body vpkzyd845.6 Parris Castillo QUARRY EXTRACTION WORKER Work Phone: [facility] CenterQjvdixfwtl56-17-3190 14:13-0500Body mass index (BMI) [Ratio]43.07 kg/i9HbwwwKenia Castillo QUARRY EXTRACTION WORKER Work Phone: [facility] CenterQfcofpmdyh09-96-5361 14:13-0500Body uaplax708.07 kgKenia Castillo QUARRY EXTRACTION WORKER Work Phone: [facility] CenterFoyhbzwdsj82-31-6264 14:13-0500Diastolic blood wakdifxt41 mm[Hg]Kenia Castillo QUARRY EXTRACTION WORKER Work Phone: [facility] CenterYcprwfthsx87-69-2253 14:13-0500Heart rate98 /min Kenia Castillo QUARRY EXTRACTION WORKER Work Phone: [facility] CenterVsuxiwuxwd16-02-1135 14:13-2837ZzQ4% (BldA) [Mass fraction]95 %Kenia Cordonjtvictor manuel QUARRY EXTRACTION WORKER Work Phone: [facility] CenterIdrqoxiltf11-87-9837 14:13-0500Systolic blood xpfjifaj872 mm[Hg]Kenia Cordonayush QUARRY EXTRACTION WORKER Work Phone: [facility] CenterEmpcgzptkd32-87-3701 14:54-0500Body haoydl492.[address]12-23-2024 14:54-0500Body mass index (BMI) [Ratio]41.88 kg/m[address]12-23-2024 14:54-0500Body weight 140.[address]12-23-2024 14:54-0500Diastolic blood gslanuax94 mm[Hg][address]12-23-2024 14:54-0500Systolic blood mm[Hg][address]11-12-2024 13:04-0500Body mass index (BMI) [Ratio]38.92 kg/m0Orrnsun Evangelista QUARRY EXTRACTION WORKER Work Phone: [phone] [place], [place] [address]Pkwkwcbcfg33-86-3427 13:04-0500Body temperature 97.39 [degF]Jeannine Rodríguezzpatrick QUARRY EXTRACTION WORKER Work Phone: [phone] [place] [address]-12-2024 13:04-0500Body dbephn933.81 kgChristy Evangelista QUARRY EXTRACTION WORKER Work Phone: [phone] [place], [place] [address]Pgebmhekyz08-36-6086 13:04-0500Diastolic blood ahnlsfws22 mm[Hg]Jeannine Evangelista QUARRY EXTRACTION WORKER Work Phone: [phone] [address]Ivyhnnolec60-53-4789 13:04-0500Systolic blood ltnwmuao975 mm[Hg]Jeannine Evangelista QUARRY EXTRACTION WORKER Work Phone: [phone] [place], [place] [address]Nirsemagvh61-63-1176 12:53-0400Body .4 cmSteven Rusher DPM Work Phone: [phone] CenterIozvuscjef94-68-0106 12:53-0400Body mass index (BMI) [Ratio]40.13 kg/p4Rtegnb Rusher DPM Work Phone: [phone] CenterQwndyijbvp96-63-9850 12:53-0400Body plljuu306.98 kgSteven Rusher DPM Work Phone: [phone] [place] [address]-28-2024 08:58-0400Body mass index (BMI) [Ratio]40.13 kg/l2EbtolKenia Castillo QUARRY EXTRACTION WORKER Work Phone: [facility] CenterObiyfvskmd41-77-9863 08:58-0400Body temperature 96.69 [degF]Kneia Castillo QUARRY EXTRACTION WORKER Work Phone: [facility] CenterPajursqruu61-29-5674 08:58-0400Body yppzte273.98 kgKenia Castillo QUARRY EXTRACTION WORKER Work Phone: [place] [address]Whkixhuaky29-76-5627 08:58-0400Diastolic blood qtwumyjl14 mm[Hg]Kenia Castillo QUARRY EXTRACTION WORKER Work Phone: [place] [address]Zignlqybsz26-95-5154 08:58-0400Heart rate67 /min Kenia Castillo QUARRY EXTRACTION WORKER Work Phone: [facility] CenterFogvpalekq13-62-5728 08:58-4413XqS3% (BldA) [Mass fraction]95 %Kenia Castillo QUARRY EXTRACTION WORKER Work Phone: [facility] CenterFsafdfuukf86-23-3980 08:58-0400Systolic blood jpfcoiad496 mm[Hg]Kenia Castillo QUARRY EXTRACTION WORKER Work Phone: [facility] CenterEpbhmywtcb33-18-7319 09:31-0500Pulse Sgxizpih90 % [facility], YE47-99-1218 09:30-0500BP Afbsbujxl33 mm[Hg]Ej [facility], MK84-06-2641 09:30-0500BP Bqtgzinn359 mm[Hg]Ej [facility], SB11-66-1004 09:30-0500Pulse (Heart Rate)56 /minAli [facility], NR37-90-5381 09:30-0500Respiratory Rate22 /min[facility], VP40-61-6138 07:14-0500BMI (Body Mass Index)36.89 kg/m2[facility], TZ32-64-4648 07:14-0500Body wvuuws902.38 kgOhioHealth, IS92-41-6840 07:14-2090Csueno708.9 Rashida [facility], [place] Encounters Encounter DateEncounter TypeCare ProviderFacilityStart: 11-18-2024 End: 31-40-6783gbwzzlhmnlQrkigbmCheyanne Guillen MDFacility:[facility] Start: 10-07-2024 End: 99-78-0732yusdavpcjqSnadlohc Brink PTANOMS Maurisio Physical TherapyComment on above:Spinal stenosis, lumbar region with neurogenic claudication (Primary Dx); Bilateral leg weakness; Left thigh painStart: 10-07-2024 End: 91-88-7968Krbdap flowsheetMarshall Brink PTANOMS [facility] Start: 10-07-2024 End: 72-52-2987Bsxvtf flowsheetMarshall Brink PTANOMS [facility] Start: 2024 End: 21-73-1659Nrrqfj flowsheetMelissa Kelbley PTANOMS [facility] Start: 2024 End: 49-41-8087Jnhasf flowsheetMelissa Kelbley PTANOMS [facility] Start: 2024 End: 79-61-5192plgjcxvofsDezwenb Kelbley PTANOMS [facility] Physical TherapyComment on above:Spinal stenosis, lumbar region with neurogenic claudication (Primary Dx); Bilateral leg weakness; Left thigh painStart: 09-26-2024 End: 75-48-5136rhlemujgtgVftvzam Kelbley PTANOMS [facility] Physical TherapyComment on above:Spinal stenosis, lumbar region with neurogenic claudication (Primary Dx); Bilateral leg weakness; Left thigh painStart: 09-26-2024 End: 16-42-1076Vzjszi flowsheetMelissa Kelbley PTANOMS [facility] Start: 09-26-2024 End: 98-07-1253Toxhnl flowsheetMelissa Kelbley PTANOMS [facility] Start: 09-23-2024 End: 15-33-5399bxxrdtgzvmTkikedh Kelbley PTANOMS [facility] Physical TherapyComment on above:Spinal stenosis, lumbar region with neurogenic claudication (Primary Dx); Bilateral leg weakness; Left thigh painStart: 09-23-2024 End: 99-85-2393Owzlcb flowsheetMelraine Gregoirobley PTANOMS [facility] Start: 09-23-2024 End: 15-08-4133Otmnay flowsheetMelraine Latham PTANOMS [facility] Start: 09-19-2024 End: 55-75-2579Sqlenk flowsheetMony Sharpe PTANOMS [facility] Start: 09-19-2024 End: 88-80-6669Unvpwq flowsheetMony Sharpe PTANOMS [facility] Start: 09-19-2024 End: 47-96-5504eghchfstlvItxeaboh Brink PTANOMS [facility] Physical TherapyComment on above:Spinal stenosis, lumbar region with neurogenic claudication (Primary Dx); Bilateral leg weakness; Left thigh painStart: 09-18-2024 End: 18-17-6417Bvurapjeremiah Castillo QUARRY EXTRACTION WORKER Work Phone: [facility] MedicineStart: 09-18-2024 End: 05-05-9195Ojgoeyjeremiah Castillo QUARRY EXTRACTION WORKER Work Phone: [facility] MedicineStart: 09-18-2024 End: 02-68-3920Gjzqov outpatient visit 25 minutesSatim Castillo QUARRY EXTRACTION WORKER Work Phone: [facility] HospitalComment on above:Primary hypertension (Primary Dx); Type 2 diabetes mellitus with diabetic peripheral angiopathy without gangrene, without long-term current use of insulin (HCC); Benign prostatic hyperplasia with lower urinary tract symptoms, symptom details unspecified; Paroxysmal atrial fibrillation (HCC); Morbid (severe) obesity due to excess calories ([facility]-HCC)Start: 09-18-2024 End: 49-82-8664sdcstbrdowAMJOS KAMPFERNot AvailableStart: 09-16-2024 End: 57-06-3577qrcyhxbxcfKrqsjnoh Brink PTANOMS [facility] Physical TherapyComment on above:Spinal stenosis, lumbar region with neurogenic claudication (Primary Dx); Bilateral leg weakness; Left thigh painStart: 09-16-2024 End: 56-16-9390Sexizg flowsGio RINCON [facility] Start: 09-16-2024 End: 11-38-6496Sjlpbc flowsGio RINCON [facility] Start: 09-09-2024 End: 45-42-3927zdedkpnrcsWqfxlwl Kelbley PTANOMS [facility] Physical TherapyComment on above:Spinal stenosis, lumbar region with neurogenic claudication (Primary Dx); Bilateral leg weaknessStart: 09-09-2024 End: 23-65-4396Hbiazn flowsheetMaddie RINCON [facility] Start: 09-09-2024 End: 62-13-4978Uwdprk flowsheetMaddie RINCON [facility] Start: 09-03-2024 End: 35-54-3326Fgllha flowsheetSteven A Rusher DPM Work Phone: [facility] PODIATRYStart: 09-03-2024 End: 94-59-0015Zbgenz flowsheetSteven A Rusher DPM Work Phone: [facility] PODIATRYStart: 09-03-2024 End: 01-69-3691Phiolts encounter procedureSteven A Rusher DPM Work Phone: noTHE [facility] PODIATRYComment on above:Dermatophytosis of nail (Primary Dx); Dystrophic nail; Pain around toenail, right foot; Pain around toenail, left footStart: 09-03-2024 End: 32-97-5702sosjihilolROVGUW A RUSHERNot AvailableStart: 08-30-2024 End: 15-08-9222Zxpiwo flowsheetSammantha Argueta PTNOMS CI PTStart: 08-30-2024 End: 66-59-0187Owxqji flowsheetSammantha Argueta PTNOMS CI PTStart: 08-30-2024 End: 69-42-1659ydyvbjpoybYfjupatxn Argueta PTNOMS CI PTComment on above:Spinal stenosis, lumbar region with neurogenic claudication (Primary Dx); Bilateral leg weaknessStart: 08-15-2024 End: 72-53-7579Icflxgrhq encounterSveena Argueta PTNOMS CI PTComment on above:PT Initial Eval (Spinal Stenosis/ b/l leg weakness); Call Back; Call Back x2 (He contacted and scheduled 08/30/24 for PT Eval w/ Leroy Argueta, PT.)Start: 08-05-2024 End: 62-85-4211rhlzybvvvqOxiswww Lisa Guillen MDFacility:[facility] Start: 07-23-2024 End: 50-43-2967Tjjjop-up Feliciano Castillo NP Work Phone: NOMS FNR FMStart: 07-23-2024 End: 64-99-2716Xvboiksyv encounterBernie Adam MD Work Phone: NOMS FNR FMStart: 07-22-2024 End: 73-61-2604Ywqgbj Maxine Castillo QUARRY EXTRACTION WORKER Work Phone: NOFK FNR FMComment on above:Decreased renal function Start: 07-09-2024 End: 21-13-2804Wigtar flowsJaren Castillo QUARRY EXTRACTION WORKER Work Phone: NOAZ FNR FMStart: 07-09-2024 End: 30-07-1436Mypygf flowsJaren Castillo QUARRY EXTRACTION WORKER Work Phone: noms FNR FMStart: 07-09-2024 End: 80-45-8007Hazbdh outpatient visit 25 minutesSatim Castillo NP Work Phone: NOMS FNR FMComment on above:Localized edema (Primary Dx); Restless legs syndrome; POOL (obstructive sleep apnea); Polio; Primary hypertension (CMS/HCC); Benign prostatic hyperplasia with nocturia; Gastroesophageal reflux disease without esophagitis; Type 2 diabetes mellitus with diabetic peripheral angiopathy without gangrene (CMS/HCC); Other hyperlipidemia; Paroxysmal atrial fibrillation (CMS/HCC); Insomnia, unspecified type; Lumbar radiculopathy; 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Start: 07-09-2024 End: 21-14-6483Jtpuqlisb encounterSarah Kamjtvictor manuel QUARRY EXTRACTION WORKER Work Phone: NOMS FNR FMStart: 07-09-2024 End: 37-73-8064qkpoumaoxeYWWHT KAMPFERNot AvailableStart: 07-08-2024 End: 39-38-3725NudksiYkczp Kamjtvictor manuel QUARRY EXTRACTION WORKER Work Phone: NOMS FNR FMComment on above:Paroxysmal atrial fibrillation (CMS/HCC)Start: 06-28-2024 End: 38-22-9254Lgtcwhvuc encounterSsara Cordonjtvictor manuel QUARRY EXTRACTION WORKER Work Phone: NOMS FNR FMStart: 05-23-2024 End: 58-28-5207Qvswssazl Devonte Adam MD Work Phone: NOMS FNR FMComment on above:Acute cough (Primary Dx) Start: 05-20-2024 End: 20-52-1401Ltliwg Will Cordonjtvictor manuel QUARRY EXTRACTION WORKER Work Phone: NOMS FNR FMStart: 05-20-2024 End: 34-10-5743Tsphob Will Cordonjtvictor manuel QUARRY EXTRACTION WORKER Work Phone: NOMS FNR FMStart: 05-20-2024 End: 48-41-5472Caeief outpatient visit 25 minutesSaraj Cordonjtvictor manuel QUARRY EXTRACTION WORKER Work Phone: NOMS FNR FMComment on above:Type 2 diabetes mellitus without complication, without long-term current use of insulin (Primary Dx); Acute bacterial conjunctivitis of both eyes; Non-recurrent acute suppurative otitis media of left ear without spontaneous rupture of tympanic membraneStart: 05-20-2024 End: 43-49-5643xxfxtpgzjwLPFAG KAMPFERNot AvailableStart: 04-29-2024 End: 26-67-7002yejcglpnooDIEVJR A RUSHERNot AvailableStart: 04-01-2024 End: 08-79-1496uspfggohjnQgbruseEver Guillen MDFacility:JOSE EDUARDO Mojica Start: 03-22-2024 End: 81-01-8311UmsegwUvkba Kampfer QUARRY EXTRACTION WORKER Work Phone: noMS FNR FMComment on above:Primary hypertension (CMS/HCC)Start: 03-04-2024 End: 51-08-6392mreqhtpawpLtecxjeCheyanne Guillen MDFacility:PM [facility] Start: 02-23-2024 End: 44-81-4356hdjpsdvczuRLU F O AHMADMercy Sebastopol HospitalStart: 02-23-2024 End: 10-35-1923Lwhjeedgdu hospital visit by Herve Foster MD Work Phone: [facility] Cardiac Cath/IR LabComment on above:Paroxysmal atrial fibrillation (HCC) (Primary Dx); PAF (paroxysmal atrial fibrillation) (HCC)AF (paroxysmal atrial fibrillation) (HCC)Start: 02-20-2024 End: 70-62-8328gzqxfepbpjPXRXH KAMPFERNot AvailableStart: 02-20-2024 End: 08-12-6686Cggjwx flowsJaren Castillo QUARRY EXTRACTION WORKER Work Phone: NOMS FNR FMStart: 02-20-2024 End: 28-06-4817Rvlzbv flowsJaren Castillo QUARRY EXTRACTION WORKER Work Phone: NOMS FNR FMStart: 02-20-2024 End: 15-27-2720Ehmcusg encounter Cal Castillo NP Work Phone: noms FNR FMComment on above:Encounter for wellness examination (Primary Dx); Mixed hyperlipidemia (CMS/HCC); Primary hypertension ([facility]/HCC); Type 2 diabetes mellitus with other specified complication, without long-term current use of insulin ([facility]); Vitamin D deficiency; 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; Gastroesophageal reflux disease without esophagitis; Paroxysmal atrial fibrillation (CMS/HCC); POOL (obstructive sleep apnea); Peripheral edema; PVD (peripheral vascular disease) ([facility]/HCC); Lumbar radiculopathy; Restless legs syndrome; GERD without esophagitis; Type 2 diabetes mellitus with diabetic peripheral angiopathy without gangrene, without long-term current use of insulin ([facility]); Insomnia, unspecified type; Morbid (severe) obesity due to excess calories ([facility]); Colon cancer screening declined; Screening PSA (prostate specific antigen); Benign prostatic hyperplasia with lower urinary tract symptoms, symptom details unspecified; Body mass index (BMI) 40.0-44.9, adult (CMS/HCC)Start: 02-20-2024 End: 73-71-1721Vznjlxd encounter statustim Jonathan QUARRY EXTRACTION WORKER Work Phone: noms HealthcareStart: 02-19-2024 End: 18-46-0419DddmguOkrafhyp Hohman MD Work Phone: noms FNR FMComment on above:Type 2 diabetes mellitus with diabetic peripheral angiopathy without gangrene ([facility])Start: 02-05-2024 End: 75-85-4250vxveuumyzyRYQWYGMSelect Medical Specialty Hospital - Youngstowntart: 02-05-2024 End: 27-88-2517Vxezthbfhs hospital visit by [address] Non-Invasive CardiologyComment on above:Permanent atrial fibrillation (HCC); Chronic anticoagulation; Essential hypertension; Type 2 diabetes mellitus with diabetic nephropathy, without long-term current use of insulin (HCC); History of COVID-19; Obesity, Class III, BMI 40-49.9 (morbid obesity)Start: 01-31-2024 End: 48-45-9224XybbuxWxwpzlmy Hohman MD Work Phone: noms FNR FMComment on above:Restless legs syndrome Start: 01-01-2024 End: 51-62-7012Dxtzxv OnlyChristy A Evangelista QUARRY EXTRACTION WORKER Work Phone: NONX FNR FMComment on above:Bronchitis (Primary Dx) Start: 12-29-2023 End: 41-87-6372Jifhee OnlyChristy A Evangelista QUARRY EXTRACTION WORKER Work Phone: NONE FNR FMComment on above:BronchitisStart: 12-28-2023 End: 56-03-2053RanlrzLtxtrwjq Hohman MD Work Phone: noms FNR FMComment on above:BronchitisBronchitis (Primary Dx)Start: 12-26-2023 End: 52-20-1825Dwtkzc flowsheetChristy A Evangelista QUARRY EXTRACTION WORKER Work Phone: NOZU FNR FMStart: 12-26-2023 End: 41-57-7219Zfdyzi flowsheetChristy A Evangelista QUARRY EXTRACTION WORKER Work Phone: noms FNR FMStart: 12-26-2023 End: 93-10-9850Ptderd outpatient visit 15 minutesChristy A Evangelista QUARRY EXTRACTION WORKER Work Phone: noms FNR FMComment on above:Acute right otitis media (Primary Dx); BronchitisStart: 12-26-2023 End: 96-60-9654bzodakpxzcKSXDKHD A FITZPATRICKNot AvailableStart: 12-21-2023 End: 19-63-3563Fmblvedyu encounterBernie Adam MD Work Phone: noms FNR FMStart: 11-15-2023 End: 34-49-3502Zaseey flowsheetSteven A Rusher DPM Work Phone: noms PODIATRYStart: 11-15-2023 End: 10-79-8827Aecbiz flowsheetSteven A Rusher DPM Work Phone: noms PODIATRYStart: 11-15-2023 End: 65-18-5696Ypupmbp encounter procedureSteven A Rusher DPM Work Phone: noms PODIATRYComment on above:Dermatophytosis of nail (Primary Dx); Dystrophic nail; Pain around toenail, right foot; Pain around toenail, left footStart: 11-15-2023 End: 72-20-6284vcdzvseykyXLJCIH A RUSHERNot AvailableStart: 10-23-2023 End: 57-58-1940BvgrvdXgomt Kampfer QUARRY EXTRACTION WORKER Work Phone: noms FNR FMComment on above:Paroxysmal atrial fibrillation (CMS/HCC)Start: 10-11-2023 End: 15-32-8422Ekpgqf Will Cordonjtvictor manuel QUARRY EXTRACTION WORKER Work Phone: noms FNR FMStart: 10-11-2023 End: 65-86-9755Owmgcc Will Castillo QUARRY EXTRACTION WORKER Work Phone: NOYQ FNR FMStart: 10-11-2023 End: 30-45-3666Fyhwyx outpatient visit 15 minutesSaraj Cordonjtvictor manuel QUARRY EXTRACTION WORKER Work Phone: noms FNR FMComment on above:Dental abscess (Primary Dx)Start: 10-11-2023 End: 07-97-8215iqeupzavfwXBLHN KAMPFERNot AvailableStart: 06-14-2023 End: 78-16-7758urvwuamwctEHLYMN C STEPANIC [facility] HospitalStart: 05-23-2023 End: 71-11-9341wzipdtmfzhLxgcatf MeyerFacility:[facility] Start: 05-23-2023 End: 10-49-1248jtwgklcrvxXQ-C Jeannine Evangelista Work Phone: [facility] Work Phone: Start: 05-23-2023 End: 65-48-4012Feglfsm encounter procedureNP-C Jeannine Evangelista Work Phone: [facility] [address] Work Phone: Start: 05-11-2023 End: 87-82-4569namlyquhhvXB-C Jeannine Moseleyk Work Phone: [facility] Work Phone: Start: 05-11-2023 End: 43-35-4864Uhgkesk encounter procedureNP-C Jeannine Estevezpatrick Work Phone: [facility] [address] Work Phone: Start: 95-67-3538Lthxnnmnm encounterJeremalberto Rico PT Work Phone: noms CI PTComment on above:re: [employer] for PT (He called noting he had just gotten verification per [employer] that if referring provider refers for therapy then PT would be covered. He gave a reference # [id number].)Start: 16-31-0372Pdolandxq encounterAlex Rico PT Work Phone: NOMS CI PTComment on above:re: Insurance (He called re: coverage w/ insurance noted pending and I gave update of no auth yet. I explained I have been checking multiple times a day and been informed of nothing recieved. He saidhe was speaking to friend and as of now [facility] and has ability to use TENS unit. I noted if there is a need to contact and he said he will most certainly do so.)Start: 38-99-4879Onnivaihm encounterMaddie Latham PTANOMS CI PTComment on above:re: PT today (Called and noted auth is still pending for PT and in need to cx today; I informed I will keep up-to-date come his next on 03/30.)Start: 38-09-2420Enmnfn Michael Rico PT Work Phone: N[facility] CI PTStart: 99-76-5676Kzmlkf Michael Rico PT Work Phone: NOM[facility] CI PTStart: 03-23-2023 End: 62-50-0305ajqfkkvxwqZdikju T Blackston PT Work Phone: noMS CI PTComment on above:Left thigh pain (Primary Dx); Muscle strain of left thigh, subsequent encounterStart: 09-23-2020 End: 78-61-6964Hjmqwtccgy [facility] Echo RoomSM[facility]POX [facility] EchocardiographyComment on above:Persistent atrial fibrillation (HCC); SOB (shortness of breath); Essential hypertension; Other specified diabetes mellitus with other specified complication, unspecified whether fpc insulin use (HCC); Class 2 obesity with body mass index (BMI) of 36.0 to 36.9 in adult, unspecified obesity type, unspecified whether serious comorbidity present; Pain in both lower extremitiesStart: 03-10-2020 End: 13-68-2629Aucljznwwc hospital visit by [facility] LaboratoryComment on above:Controlled type 2 diabetes mellitus with hyperglycemia, without long-term current use of insulin (HCC); Persistent atrial fibrillation (HCC); SOB (shortness of breath); Essential hypertension; Other specified diabetes mellitus with other specified complication, unspecified whether fur blower insulin use (HCC); Class 2 obesity with body mass index (BMI) of 36.0 to 36.9 in adult, unspecified obesity type, unspecified whether serious comorbidity present; COVID-19; Fluid retention; Pain in both lower extremitiesPain in both lower extremities; PVD (peripheral vascular disease) (HCC)Start: 02-12-2020 End: 13-89-2669Zgnzvmsmwy hospital visit by Herve Foster Work Phone: mthz ICUComment on above:ArrivedStart: 01-22-2020 End: 94-17-2131Xjunirohpf hospital visit [facility] Echo RoomSMALLPOX [facility] EchocardiographyComment on above:Persistent atrial fibrillation (HCC); Essential hypertension; SOB (shortness of breath); Fluid retention; Other specified diabetes mellitus with other specified complication, unspecified whether fpc insulin use (HCC); Class 2 obesity with body mass index (BMI) of 36.0 to 36.9 in adult, unspecified obesity type, unspecified whether serious comorbidity presentStart: 12-16-2019 End: 62-23-9150Fkdfpiz encounter procedureDOCTOR MISCFacility:T9Icoos: 12-11-2019 End: 65-66-5790Wmnfciimke hospital visit by [facility] Covid Screening ScheduleSMALLPOX HOSPITAL Covid ScreeningComment on above:Arrived Procedures DateProcedureProcedure DetailPerforming ClinicianStart: 85-96-7285Exsdncwnzc glycosylated u6nIixidtim Castillo NP Work Phone: Start: 98-22-4438Snjcafbsbo glycosylated x6bXeqootim Castillo QUARRY EXTRACTION WORKER Work Phone: Start: 02-23-2024 End: 42-15-0394Bcj routine ecg w/least 12 lds w/i&Ivan Foster MD Work Phone: Start: 62-41-1881Cue routine ecg w/least 12 lds w/i&r Ej F Kate Foster MD Work Phone: Start: 93-84-1391Pcqbc albumin quantitativeSatim Castillo QUARRY EXTRACTION WORKER Work Phone: Start: 74-04-1720Amluf panelSsara Castillo QUARRY EXTRACTION WORKER Work Phone: Start: 46-19-0644Ymvxgzpnynlqc metabolic panelSsara Castillo QUARRY EXTRACTION WORKER Work Phone: Start: 92-50-7680Aobc tthrc r-t 2d w/wom-mode compl spec&colr Elizabeth Morrow PA-C Work Phone: Start: 60-19-9442Hxwx tthrc r-t 2d w/wom-mode compl spec&colr Fern F O Cristian SANTAMARIA Work Phone: Start: 57-42-8401Phqpu metabolic panel calcium total Ali F O Ahmad Work Phone: Start: 45-90-0501Wyvci panelAli F O Ahmad Work Phone: Start: 79-44-9429Cyk routine ecg w/least 12 lds w/i&r Ali F O Ahmad Work Phone: Start: 03-20-0100Fuibt of troponin quantitativeAli F O Ahmad Work Phone: Start: 95-79-1321Engwy metabolic panel calcium total Ali F O Ahmad Work Phone: Start: 87-26-1603Eqhxs count complete automatedAli F O Ahmad Work Phone: Start: 37-87-0203Rgqqlwlkyq glycosylated a1cAli F O Ahmad Work Phone: Start: 75-60-0867Goxg tthrc r-t 2d w/wom-mode compl spec&colr Fern F O Ahmad Work Phone: Start: 12-16-2019 End: 96-88-5305Qoywnulsdgs examination of blood, cultureDOCTOR MISCComment on above:Performed By: #### [id number] #### [facility] [address] [address] Cheryl ZarinaPerformed By: #### CBC #### [facility] [address] [address] Cheryl Srinivasan Plan of Treatment DateCare ActivityDetailAuthorStart: 77-32-8100TRrD/Tdap/Td vaccine (2 - Td or Tdap)DTaP/Tdap/Td vaccine (2 - Td or Tdap)[facility]Start: 37-64-5371PSmS/Tdap/Td vaccine (2 - Td)DTaP/Tdap/Td vaccine (2 - Td)[facility] [place]Start: 01-07-2026Medicare Annual Wellness (AWV)Medicare Annual Wellness (AWV)NOM HealthcareStart: 58-58-6885Ywvcz screening for protein Diabetes: Urine Protein ScreeningNOFL HealthcareStart: 01-20-2025 End: 88-75-4309Eebufcn encounter mvonjgfuf11/08/2025 2:00 PM EST [facility] [address] [place] [address] Kenia Castillo NP [address], [place] [id number] [facility] MedicineStart: 01-08-2025 End: 92-75-8365Awqmkxi encounter procedureNOTHE RE[facility]ATION [facility] PODIATRYStart: 12-19-2024 Hemoglobin A1c measurementDiabetes: Hemoglobin R9ZDVPS HealthcareStart: 10-15-2024 End: 56-73-9801efzpuvsxgv43/02/2025 2:30 PM EDT Treatment [facility] [address] [place], [id number] Maddie Latham PTANOMS [place] Physical TherapyStart: 54-19-5021Hqxueihlm vaccination Influenza Vaccine (#1)[facility] HealthcareStart: 10-10-2024 End: 07-47-3864stkheygpgz34/28/2025 2:30 PM EDT Treatment [facility] [address] [facility] [address] [place], [id number] Valerie Argueta PTNOMS [facility] Physical TherapyStart: 10-07-2024 End: 59-08-6181mseejongkjDTMT [facility] Physical TherapyComment on above:Spinal stenosis, lumbar region with neurogenic claudication (Primary Dx); Bilateral leg weakness; Left thigh painStart: 2024 End: 44-03-7983jrcqzayvtgRRNH [facility] TherapyComment on above:Arrived Start: 09-30-2024 End: 74-61-1861kibsxzrxsc84/18/2025 2:30 PM EDT Treatment [facility] [address] [facility] [address] [place], [place] Maddie Latham PTANOMS [place] Physical TherapyStart: 09-26-2024 End: 90-49-9533kurlotefftDNDK [facility] Physical TherapyComment on above:Arrived Start: 09-23-2024 End: 25-33-6236xzpaqlmnzpGRSW [facility] Physical TherapyComment on above:Arrived Start: 09-19-2024 End: 26-28-7613fnlsieisqhPGEL [facility] Physical TherapyComment on above:Arrived Start: 09-18-2024 End: 89-20-9078Wrekwpm encounter procedureNOMS FNR FMComment on above:Arrived Start: 09-16-2024 End: 18-77-8125mfmwdatdqvZSXZ [facility] Physical TherapyComment on above:Arrived Start: 09-11-2024 End: 41-53-1586sclwpcsndq70/30/2025 3:00 PM EDT Treatment [facility] [address] [place], [place] Maddie Latham, PTANOMS [facility] TherapyStart: 09-09-2024 End: 17-89-8805zvngjprtgt54/28/2025 2:30 PM EDT Treatment [facility] [address] [place], [place] Noa, Maddie, MACHINING MANAGER Spinal stenosis, lumbar region with neurogenic claudication (Primary Dx); Bilateral leg weakness; Left thigh painNOMS [facility] Comment on above:Spinal stenosis, lumbar region with neurogenic claudication (Primary Dx); Bilateral leg weakness; Left thigh painStart: 09-03-2024 End: 28-20-9573Eqktkyg encounter procedureNOMS PODIATRYComment on above: ArrivedStart: 08-30-2024 End: 37-99-1935lmjcfidfpn52/18/2025 12:30 PM EDT Evaluation [facility] PT [address] [facility] [address] [place] [address] Valerie Argueta PTNOMS CI PTStart: 02-94-5357Ddurikxhnh A1c measurementDiabetes: Hemoglobin A1C NOMS HealthcareStart: 07-22-2024 End: 11-82-4016Rjtvahmxwcddw metabolic 2000 panel - Serum or PlasmaComprehensive metabolic panel Lab Routine Decreased renal function Expected: 07/22/2024 (Approximate), Expires: 07/22/2025[facility] Work Phone: Comment on above:Expected: 07/22/2024 (Approximate), Expires: 07/22/2025Start: 07-09-2024 End: 74-29-4175Iubgflcfjpvj / ancillary services owqyqhoxnh49/27/2025 2:45 PM EDT Ancillary Procedure [facility]TR[facility] [address] [place] [address] Localized edemaNOMS FNR ULTRASOUNDComment on above: Localized edemaStart: 07-09-2024 End: 36-69-9486GGJ W Auto Differential panel - BloodCBC and differential Lab Routine Localized edema Expected: 07/09/2024 (Approximate), Expires: 07/09/2025 NOMS HealthcareComment on above:Expected: 07/09/2024 (Approximate), Expires: 07/09/2025Start: 07-09-2024 End: 90-29-3213Mcmwjuxudexoc metabolic 2000 panel - Serum or PlasmaComprehensive metabolic panel Lab Routine Localized edema Expected: 07/09/2024 (Approximate), Expires: 07/09/2025NOMS HealthcareComment on above:Expected: 07/09/2024 (Approximate), Expires: 07/09/2025Start: 07-09-2024 End: 02-36-8467Dbfsqrpulmn peptide B [Mass/volume] in BloodB-type natriuretic peptide Lab Routine Localized edema Expected: 07/09/2024 (Approximate), Expires: 07/09/2025NOMS HealthcareComment on above:Expected: 07/09/2024 (Approximate), Expires: 07/09/2025Start: 07-09-2024 End: 14-74-8498Njmixzs encounter procedureNOMS FNR FMComment on above:Arrived Start: 07-09-2024 End: 26-79-6509RBN W/REFLEX TO FT4TSH W/REFLEX TO FT4 Lab Routine Localized edema Expected: 07/09/2024 (Approximate), Expires: 07/09/2025[facility] Comment on above:Expected: 07/09/2024 (Approximate), Expires: 07/09/2025Start: 07-09-2024 End: 68-41-9852NX.doppler Lower extremity vein - bilateralVascular US lower extremity venous duplex bilateral Imaging STAT Localized edema Expected: 07/09/2024, Expires: 07/09/2025NOMS HealthcareComment on above:Expected: 07/09/2024, Expires: 07/09/2025Start: 07-09-2024 End: 73-72-1645ZP Chest 2 ViewsXR chest 2 views Imaging STAT Localized edema Expected: 07/09/2024, Expires: 07/09/2025[facility] Work Phone: Comment on above:Expected: 07/09/2024, Expires: 07/09/2025Start: 59-09-1996Veixjnwpz for malignant neoplasm of colonColorectal Cancer ScreeningNOFL HealthcareComment on above:Postponed from 1948 (Patient Refused)Start: 12-27-7450Rdons screening for proteinDiabetes: Urine Protein ScreeningNOFL HealthcareStart: 06-11-5902Mngjherhst A1c measurement Diabetes: Hemoglobin G5WUYTZ HealthcareStart: 05-20-2024 End: 91-50-6795Pfdwlek encounter procedureNOCOREWELL HEALTH [facility]ERBER [facility]PITALR FMComment on above:Arrived Start: 04-15-2024 End: 36-96-0845Vwzyatb encounter qqjbfefiv21/03/2025 2:30 PM EST Procedure Visit [facility] [address] [place] [address] Arianna Lou DPM [address] [place] [address] NOMS PODIATRYStart: 03-21-2024 End: 26-78-7039Iwsnszf encounter ropqnqfqb04/06/2025 2:00 PM EST Office Visit [facility] CARDIOLOGY Part of [address] [phone] Shalini Morrow PA-C [address] [place] [address] [place] [address] [facility] CenterComment on above:4 weekStart: 03-19-2024 End: 78-04-9998Bzksdfg encounter uozvgunnm90/04/2025 1:00 PM EST Procedure Visit [facility] [address] [place] [address] Arianna Lou DPM [address] [place] [address] NOMS PODIATRYStart: 03-04-2024 End: 30-14-7359Jaxtxry encounter vvmrabbmv22/20/2025 1:00 PM EST Office Visit [facility] ORTHOPAEDICS [address] [place] [address] Trenton Redd PA [address] [place] [address] N[facility] CI ORTHOPAEDICSStart: 02-22-2024 End: 86-29-4248Qyfoowt encounter hhuztrwbi49/09/2025 3:00 PM EST Office Visit [facility] CARDIOLOGY Part [facility] [address] [place] [address] Shalini Morrow PA-C [address] [place] [address] 2 week[facility] Hospital for Special CareComment on above:2 weekStart: 38-58-5695Wfvamr Wellness Visit (Medicare)Annual Wellness Visit (Medicare)[facility] HospitalStart: 02-20-2024 End: 28-58-9930Dogyiaa encounter gtuiobphx53/07/2025 2:00 PM EST Office Visit [facility] LASHAUNR FM [address] [facility] [place] [address] Wrhyilw, Sarah, QUARRY EXTRACTION WORKER [address] [place] [facility] [place] [address] NOMS FNR FMStart: 01-17-2024 End: 58-05-1546Rhjqzac encounter gmnefdgdw58/04/2024 2:00 PM EST Office Visit [facility]HA[facility] FM [address] [facility] [address] Sognirr, Sarah, QUARRY EXTRACTION WORKER [address] [place] [facility] [place] [address] NOMS FNR FMStart: 12-35-9596Dedcrnpacq A1c measurementDiabetes: Hemoglobin L4PLSUM HealthcareStart: 10-20-2024Medicare Annual Wellness (AWV)Medicare Annual Wellness (AWV)NOMS HealthcareStart: 11-15-2023 End: 72-19-5342Ekbtwat encounter procedureNOMS PODIATRYComment on above: ArrivedStart: 71-76-6875Kmsnm screening for proteinDiabetes: Urine Protein ScreeningNOFL HealthcareStart: 46-84-1160Gacacyfyn vaccinationInfluenza Vaccine (#1)NOMS HealthcareStart: 10-11-2023 End: 23-25-2603Toqivfb encounter xvhbircdd04/28/2024 9:00 AM EDT Office Visit [facility] FNR FM [address] [place] [address] Kenia Castillo, KIERA [address] [place] [address] ArrivedNOMS FNR FMComment on above:ArrivedStart: 06-14-2023 End: 38-81-9931Dytjkvw encounter kckicuuqx99/01/2024 1:30 PM EDT Procedure Visit [facility] [address] [place] [address] Arianna Lou DPM [address] [place] [address] NOMS PODIATRYStart: 06-09-2023 End: 29-50-5111Nqhenzo encounter orftvjrxj06/26/2024 1:00 PM EDT Office Visit [facility] FNR FM [address] [place] [address] [address] Kenia Castillo NP [address] [address] NOMS FNR FMStart: 76-31-8662TAE test (Diabetes, CKD 3-4, OR last GFR 15-59)GFR test (Diabetes, CKD 3-4, OR last GFR 15-59)[facility] CenterStart: 04-17-2023 End: 65-79-6162Wzuwwik encounter swpbwoyat17/04/2024 1:30 PM EST Office Visit [facility] [address] [facility] [address] [place] [address] Trenton Redd PA [address] [facility] [address] [place] [address] N[facility] CI ORTHOPAEDICSStart: 04-13-2023 End: 47-38-7676pnlmizatmi67/29/2024 1:00 PM EST Treatment [facility] CI PT [address] [place] [address] MaryAlex avelar, PT [address] [facility] [address] [place] [address] NOMS CI PTStart: 04-11-2023 End: 07-67-2112hmkerrvtic91/27/2024 1:00 PM EST Treatment [facility] CI PT [address] [facility] [address] [place] [address] Maddie Latham, MACHINING MANAGER NOMS CI PTStart: 04-06-2023 End: 29-72-1451vwwvsrzzos44/22/2024 2:00 PM EST Treatment [facility] CI PT [address] [facility] [address] [place] [address] Maddie Latham, MACHINING MANAGER NOMS CI PTStart: 04-05-2023 End: 90-81-4323frgtxzqmhx94/21/2024 1:00 PM EST Treatment [facility] PT [address] [facility] [address] [place] [address] Valerie Argueta, PTNOMS CI PTStart: 04-04-2023 End: 88-41-8286ucaqqdvtnc05/20/2024 1:00 PM EST Treatment [facility] PT [address] [facility] [address] [place] [address] Maddie Latham, MACHINING MANAGER NOMS CI PTStart: 03-30-2023 End: 98-64-8915tfcvwunfjb21/15/2024 2:00 PM EST Treatment [facility] PT [address] [facility] [address] [place] [address] Maddie Latham, MACHINING MANAGER NOM[facility] CI PTStart: 03-28-2023 End: 34-47-4460dscnsfjwym90/13/2024 1:30 PM EST Treatment [facility] PT [address] [place] [address] Maddie Latham, MACHINING MANAGER N[facility] CI PTStart: 03-23-2023 End: 11-70-8211zmsfmwxwtx88/08/2024 1:00 PM EST Evaluation [facility] PT [address] [facility] [address] [place] [address] Maryrosio Alex Martinez, PT [address] [facility] [address] [place] [address] Left thigh pain; Muscle strain of left thigh, subsequent encounterNOMS CI PTComment on above:Left thigh pain; Muscle strain of left thigh, subsequent encounterStart: 10-31-9736Vlxfdwlaca A1c measurementDiabetes: Hemoglobin L3GQCLEMissouri Delta Medical CenterStart: 60-00-1531Jrummg Wellness Visit (Medicare)Annual Wellness Visit (Medicare)[facility]: 05-37-7364Iwxdtjnj screeningDiabetes: Retinopathy ScreeningMissouri Delta Medical CenterStart: 09-30-2021 End: 89-45-7994Nhcqwqr encounter uqnmsrhik13/18/2022 Office Visit Cardiology Ej Foster MD [address] [place] [address] [place] [address] [facility] CARDIOLOGY Part [facility] Connecticuttart: 64-69-6372Kaloqljepn measurementCreatinine [place], [place]Stacc[place]: 30-64-6338XoC0y (Bld) [Mass fraction]A1C test (Diabetic or Prediabetic)[place], KYStart: 42-04-3257Yxqksojmbg A1c nqgutnytnsvP1W test (Diabetic or Prediabetic)[facility] HospitalStaccident: 85-90-7101Mxwww panelBon [facility]: 42-75-6050Jewgplmxc monitoringPotassium monitoringGuernsey Memorial Hospital, NMStaccident: 84-61-1857Dugwikeowo measurementCreatinine [facility], NMStart: 04-93-0124QrW5b (Bld) [Mass fraction]A1C test (Diabetic or Prediabetic)[place], KYStacc[place]: 48-28-3669Bdzeqhqeh monitoringPotassium [facility], NMStart: 13-36-6906Dtiqyerye vaccinationFlu vaccine (#1)[facility] Work Phone: start: 09-16-2020 End: 94-00-1832Twttek Visit09/16/2020 Office Visit Cardiology Ej Foster MD [address] [place] [address] [facility] CARDIOLOGY Part [facility] HospitalStart: 03-10-2020 End: 07-91-2495Errgpf Visit03/10/2020 Office Visit Cardiology Ej Foster MD [address] [place] [address] [facility] CARDIOLOGY [facility]Start: 02-21-2020 End: 89-92-7993Zttekr Visit02/21/2020 Office Visit Cardiology Ej Foster MD [address] [place] [address] [facility] CARDIOLOGY Part [facility] HospitalStart: 01-30-2020 End: 18-46-8846Gpuera Visit01/30/2020 Office Visit Cardiology Ej Foster MD [address] [place] [address] [facility] CARDIOLOGY Part [facility] Connecticuttart: 64-86-9191Fqqikj Wellness Visit (AWV)Annual Wellness Visit (AWV)[facility]: 10-15-2019 Influenza vaccinationFlu vaccine (#1)[facility]: 2013 Pneumococcal 65+ years Vaccine (1 of 1 - PPSV23)Pneumococcal 65+ years Vaccine (1 of 1 - PPSV23)[facility]: 81-99-3264Mgvlvyafwwgg 65+ years Vaccine (2 of 2 - PPSV23)Pneumococcal 65+ years Vaccine (2 of 2 - PPSV23)[facility]: 78-75-8108Ovtwfuyl Vaccine (2 of 3)Shingles Vaccine (2 of 3)[facility]: 87-84-1742Fwigqlwhb for malignant neoplasm of colonColon cancer screen colonoscopyWadsworth-Rittman Hospital: 1998 Shingles Vaccine (1 of 2)Shingles Vaccine (1 of 2)[facility]: 00-46-1594Mnfyhvqmr for malignant neoplasm of colonSentara Norfolk General Hospital Start: 47-65-0119Nflog panelLipid screenWadsworth-Rittman Hospital: 10-04-1967 DTaP/Tdap/Td vaccine (1 - Tdap)DTaP/Tdap/Td vaccine (1 - Tdap)[facility]: 81-83-1890Pbcestvz microalbuminuria testDiabetic microalbuminuria test [facility]: 04-54-9483Lbkagaxz screeningDiabetic retinal examCarilion [facility]: 53-96-6023Doypcceur C screeningHepatitis C screenCarilion Roanoke Community Hospital: 47-37-8552Zkjfn screening for proteinDiabetic Alb to Cr ratio (uACR) [facility]: 05-36-5043Qugnsvelyj Screen Depression ScreenCarilion Roanoke Community Hospital: 59-33-6714Yuneozwd foot examinationDiabetic foot examBon [facility] Systemart: 45-58-6284Smqkmisq retinal examDiabetic retinal examWadsworth-[facility]ittman Hospital: 05-42-5600Eusmh panelLipid screenWadsworth-Rittman Hospital: 68-57-2527Jlyxkjlmze measurement Creatinine monitoringWadsworth-Rittman Hospital: 38-06-5702Tcutbsneb C screening Hepatitis C screenWadsworth-Rittman Hospital: 25-13-1042Fqohnipkg monitoring Potassium monitoringWadsworth-[facility]ittman Hospital: 68-94-6474Wdduggyyr for malignant neoplasm of colonMissouri Delta Medical Center End: 17-70-5395Jdnqtyhrhlhgm externalBon [facility] on above:1 Occurrences starting 02/23/2024 until 02/23/2024 End: 20-82-6971Zvaexejfpqcvssr and angiography procedure details panelDiagnostic Cardiac Esl Instructor Procedure Cardiac Cath Routine One Time for 1 Occurrences starting 02/12/2020 until 02/12/2020[facility] on above:One Time for 1 Occurrences starting 02/12/2020 until 02/12/2020Continuous pulse oximetryPulse oximetry, continuous Respiratory Care Routine Every 4hr until discontinued starting 02/12/2020[facility] [employer] NORAComment on above:Every 4hr until discontinued starting 02/12/2020 End: 20-52-0426Xudla-19 AmbulatoryCovid-19 Ambulatory Lab Routine Once for 1 Occurrences starting 12/11/2019 until 12/11/2019[facility] [employer] NORAComment on above:Once for 1 Occurrences starting 12/11/2019 until 12/11/2019Covid-19 AmbulatoryCovid-19 Ambulatory Lab Routine 12/11/2019 2:27 PM [facility] [employer], NORAEKG 12 LeadEKG 12 Lead ECG Routine 02/12/2020 8:26 AM [facility] [employer] NOR[facility] End: 23-00-0048Muc Tidal CO2 ContinuousEnd Tidal CO2 Continuous Respiratory Care Routine Continuous until discontinued starting 02/12/2020[facility] [employer] [place] NOR[place] Comment on above:Continuous until discontinued starting 02/12/2020 End: 77-74-4323Prfyfqks cardiac holter monitor (3 day-14 day)[facility]prH[facility] on above:One Time for 1 Occurrences starting 02/23/2024 until 02/23/2024 End: 56-24-3067Dsfaqxkw cardiac holter monitor (3 days-14 day)[facility] KeyprH[facility] on above:1 Occurrences starting 02/05/2024 until 02/05/2024 End: 15-60-4487Xcxsdkwa cardiac holter monitor (3 days-14 day)[facility] HospitalYouStream Sport HighlightsHannibal Regional Hospital on above:1 Occurrences starting 02/26/2024 until 02/26/2024 End: 11-34-8481TsG1r (Bld) [Mass fraction]Hemoglobin A1C Lab Routine Controlled type 2 diabetes mellitus with hyperglycemia, without long-term current use of insulin ([facility]) 1 Occurrences starting 03/10/2020 until 03/10/2020[facility] [employer]AComment on above:1 Occurrences starting 03/10/2020 until 03/10/2020HbA1c (Bld) [Mass fraction]Hemoglobin A1C Lab Routine Controlled type 2 diabetes mellitus with hyperglycemia, without long-term current use of insulin ([facility]) 03/10/2020 12:35 PM [employer] End: 51-01-3542RJOPDFRS PACU OXYGEN THERAPY PROTOCOLInitiate PACU Oxygen Therapy Protocol Respiratory Care Routine Continuous until discontinued starting 02/23/2024on [facility] on above:Continuous until discontinued starting 02/23/2024Oxygen therapy [Minimum Data Set]Initiate Oxygen Therapy Protocol Respiratory Care Routine Daily until discontinued starting 02/12/2020 [facility] HospitalLittle Bridge World NMComc.[facility] on above:Daily until discontinued starting 02/12/2020 End: 92-29-5408CV LOWER EXTREMITY ARTERIAL SEGMENTAL PRESSURES W PPGVL LOWER EXTREMITY ARTERIAL SEGMENTAL PRESSURES W PPG Imaging STAT Pain in both lower extremities PVD (peripheral vascular disease) ([facility]) 1 Occurrences starting 03/10/2020 until 03/10/2020[facility] HotelQuickly GALittle Bridge World NMComc.[facility]. [facility] on above:1 Occurrences starting 03/10/2020 until 03/10/2020VL LOWER EXTREMITY ARTERIAL SEGMENTAL PRESSURES W PPGVL LOWER EXTREMITY ARTERIAL SEGMENTAL PRESSURES W PPG Imaging STAT Pain in both lower extremities PVD (peripheral vascular disease) ([facility]) 03/10/2020 1:24 PM DailyObjects.comOur Lady Of Mercy HospitalEnergy Focus GAEZbuildingEHS Immunizations Immunization DateImmunizationNotesCare HwegejwsXuoeppeu52-55-8605oqnqigztd, high dose seasonal, preservative-freeKenia Casitllo QUARRY EXTRACTION WORKER Work Phone: [facility] CenterXukefahpyp38-47-7293Ppdhpjhusgfu Conjugate PCV 20 Kenia Castillo QUARRY EXTRACTION WORKER Work Phone: [facility] CenterQbvcsavipb50-85-6152VRDA-AFR-6 (COVID-19) vaccine, mRNA, spike protein, LNP, PF, 50 mcg/0.5 mLKenia Castillo QUARRY EXTRACTION WORKER Work Phone: [facility] CenterXkvtzfdoqe38-23-1887eyjqfdkeh virus vaccine, unspecified formulationSammajaycob Argueta [facility] Medical CenterCtjretstyk14-22-0325XIC, recombinant, protein subunit RSVpreF, adjuvant reconstitu, 120mcg/0.5mL, PF (Arexvy)Kenia Castillo QUARRY EXTRACTION WORKER Work Phone: [facility] CenterTqydfplhvh12-47-1787pwqwodynyscq polysaccharide vaccine, 23 valentJeremy Blackston PT Work Phone: [facility] CenterSutdxuydvk67-68-2420lwuxjrljk, high dose seasonal, preservative-freeJeremy [facility] PT Work Phone: [place] [phone]fekje virus vaccine, unspecified formulationSsara Castillo QUARRY EXTRACTION WORKER Work Phone: [place] [phone]opvec, Seasonal, Quadrivalent, AdjuvantedJeremy [facility] PT Work Phone: [place] [phone]-LEU-7 (COVID-19) vaccine, mRNA, spike protein, LNP, bivalent, preservative free, 30 mcg/0.3 mL dose, mauro-sucrose formulationJeremy [facility] PT Work Phone: [place] [phone]-XxB-5, UnspecifiedJeuniversity hospitals cleveland medical centery [facility] PT Work Phone: [place] [phone]swsln, High-dose Seasonal, Quadrivalent, Preservative FreeJeremy [facility] PT Work Phone: [place] [phone]nzzpc, High-dose Seasonal, Quadrivalent, Preservative FreeJeremy [facility] PT Work Phone: [place] [phone]yxedn, High-dose Seasonal, Quadrivalent, Preservative FreeJeremy [facility] PT Work Phone: [place] [phone]kt Purple Cap SARS-CoV-2 VaccinationJeremy [facility] PT Work Phone: [facility] CenterQxeyevyupx16-19-0552Yyeoyx Purple Cap SARS-CoV-2 VaccinationJeremy [facility] PT Work Phone: [facility] CenterIxooczxqfi38-41-4236Txnxpv Purple Cap SARS-CoV-2 VaccinationJeremy [facility] PT Work Phone: [phone] [place], [place] [address]Yyetbegzjl20-91-0531glvpxswlg, injectable, quadrivalent, preservative freeJeremy Blackston PT Work Phone: [facility] CenterDgsblsdsjx05-68-8801kxugarbol, injectable, quadrivalent, preservative freeJeremy Blackston PT Work Phone: [phone] CenterGfslacdntp68-39-8167igjteaz toxoid, reduced diphtheria toxoid, and acellular pertussis vaccine, adsorbedJeremy Blackston PT Work Phone: [phone] [place], [place] [address]Mafrmapozp98-50-5677hpquwpgpm, high dose seasonal, preservative-freeJeremy Blackston PT Work Phone: [phone] CenterYywwvndwoh78-58-5829vbouegmiw, high dose seasonal, preservative-freeJeremy Blackston PT Work Phone: [phone] CenterVacubfsvfg01-16-3956Pioiqeolq, High-dose Seasonal, Quadrivalent, Preservative FreeJeremy Blackston PT Work Phone: [phone] [place], [place] [address]Qrptqfstfh47-57-1068aqwptpveb, injectable, quadrivalent, contains preservativeJeremy Blackston PT Work Phone: [phone] CenterOygkrunwxe01-37-5470oxjedeoug, injectable, quadrivalent, preservative freeJeremy Blackston PT Work Phone: [phone] [place], [place] [address]Hcxqdpqrfv90-46-9847jkrtlrvkeiar conjugate vaccine, 13 valentJeremy Blackston PT Work Phone: [phone] [place], [place] [address]Eqtbcdrvdr83-34-1886ywnnykzvf, seasonal, injectable, preservative freeJeremy Blackston PT Work Phone: [phone] [place], [place] [address]Xvvwiynpkm71-15-9840avepzjbtb, injectable, quadrivalent, preservative freeJeremy Blackston PT Work Phone: [phone] [place], [place] [address]Clsahgorbi31-03-9191lwdgphxme, seasonal, injectableJeremy Blackston PT Work Phone: [phone] [place], [place] [address]Jcaohkusag54-37-4834lqdlkiyxy, seasonal, injectable, preservative freeAlex Rico PT Work Phone: [facility] CenterPxpgtphras53-25-4686ketpmywwppdl polysaccharide vaccine, 23 valentJespencer Rico PT Work Phone: [facility] CenterHqfkrveooe58-77-3634zyjgek vaccine, liveAlex Rico PT Work Phone: [facility] CenterYtxcarmjvt18-56-6773muuwvzqbb, seasonal, injectableJeremy Trisha PT Work Phone: [facility] Payers DatePayer CategoryPayerPolicy [id number]-pay2024Medicare [id number] 2024Medicare (Managed Care) [employer] Member Subscriber Plan / Payer (Effective 2023-Present) Name: Zaina Winters Relation to Subscriber: Self Name: Zaina Winters Payer ID: Not on file Group ID: Not on file Type: Not on file Address: [address] [place] [id number]. Luke's Hospital Member Subscriber Plan / Payer (Effective 2023-Present) Name: Zaina Winters Relation to Subscriber: Self Name: Zaina Winters Payer ID: Not on file Type: Not on file Address: [address] [place] [id number] [id number] [id number] 1.2.840.799836.1.13.239.2.7.3.335426.72255-26-1288Itrecta84906291151809-42-3569 [id number] 2.16.840.1.389703.3.579.[id number] 2.16840.1.575565.3.579.[id number] 2.0.1.456825.3.579.2.917050-42-4647Dcftjkg13388719 2.840.1.736993.3.579.2.[id number] 2.16840.1.566473.3.579.[id number] 2.16840.1.439644.3.579.2.00398-74-2910Xivpmaj56778490 2.840.1.559581.3.579.2.70349-96-0933Hkdqlxy81423368 2.16840.1.986259.3.579.2.59978-08-5922Qtebrih58843209 2.16840.1.789465.3.579.2.706665-57-1099Hjcooqc05829236 2.16840.1.822579.3.579.2.555915-19-2648Cdefnpy85678503 2.16840.1.604312.3.579.2.291971-23-1185Uputdsl24743344 2.16840.1.916095.3.579.2.043539-88-0668Uyuisrl06466748 2.16840.1.105375.3.579.2.973859-01-8791Dgbusgj77213237 2.16840.1.701061.3.579.2.085836-23-3143Kxnbnyw76908896 2.16840.1.509311.3.579.2.364631-86-8782Uaovooz33708380 2.840.1.274319.3.579.2.455053-25-8640Oydetxo64150526 2.16840.1.041578.3.579.2.904365-32-0409Zmukyjb95711514 2.840.1.363187.3.579.2.502092-54-4976Bzbjhln6299017 2.840.1.455173.3.579.2.164947-92-9051Gmbeovt6610490 2.840.1.563583.3.579.2.065203-24-5054Plrsbkb7303214 2.840.1.896303.3.579.2.674422-03-7823Ifpavcg6533260 2.840.1.993533.3.579.2.061638-63-0686Mmsfivl5673598 2.840.1.791049.3.579.2.443457-36-0873Ojtehmr8564136 2.16840.1.262772.3.579.2.723614-49-4024Kixluny7317155 2.16840.1.098786.3.579.2.670104-98-1509Sxpqogo8082144 2.16840.1.550803.3.579.2.113379-99-3911Txbzgrk2511068 2.16.840.1.005908.3.579.2.564904-65-9398Riwmwvu870628616 2.16.840.1.627003.3.579.2.63119-42-6638Xazjjqs674168433 2.16.840.1.329381.3.579.2.73217-83-5410Segcvwr650806692 2.16.840.1.466205.3.579.2.82357-41-7124Slphdmy302611030 2.16.840.1.493680.3.579.2.485Dvlqllu73156634 2.16.840.1.530583.3.579.2.531 Social History DateTypeDetailFacilityTobacco smoking status NHISUnknown if ever smokedWadsworth-[facility]: 46-11-0082Wgb Assigned At BirthNot on fileWadsworth-Rittman Hospital: 01-22-2020 End: 68-80-7273Khiwhyr smoking status NHISNever smokerWadsworth-Rittman Hospital: 01-22-2020 End: 68-31-6138Zglcodp use and exposureNever usedWadsworth-Rittman Hospital: 03-10-2020 End: 16-92-6920Rgcdocq intakeCurrent drinker of alcohol (finding)[facility]: 51-01-7891Gfhvisk Commenthaving had since DecemberApplegate, KYExposure to SARS-CoV-2 (event)Not sureWadsworth-R[facility] Hospital: 09-16-2020 End: 21-31-5799Renivgl intakeParkwood Hospital Work Phone: start: 12-02-2022 End: 09-81-5886Tgmpyzr use panelMissouri Delta Medical CenterStart: 55-22-3036Yqeoamn Comment drinks alcohol 2-3 times a weekNOMS HealthcareStart: 48-45-3735Bmb Assigned At [facility] WestHow often to you have a drink containing alcohol?2-4 times a monthNOMS HealthcareHow many standard drinks containing alcohol do you have on a typical day?3 or 4NOMS HealthcareHow often do you have 6 or more drinks on 1 occasion?NeverNOFL HealthcareStart: 10-11-2023 Alcohol Commentcaffeine intake: 12 oz dailyNOFL HealthcareStart: 09-19-2023 Alcohol Commentcaffeine intake: 2 cups dailyNOFL HealthcareStart: 02-23-2024 Alcohol CommentoccasionalBon [facility] Clinical Notes 09-23-2020 to 09-18-2024 Note Date & CudsWqsiQqgmrdiz20-89-8604 History of Present illness Narrative* Kenia Castillo, QUARRY EXTRACTION WORKER - 09/18/2024 1:00 PM EDT Images from the original note [...] and feels that his current medication, Flomax, isnot sufficiently strong. Initially, Flomax was effective, but its efficacy seems to have diminishedover time. He is considering increasing the dosage to two tablets. His diabetes is well-managed, and he reports feeling good overall. He has lost 60 pounds since the onset of his condition. He was not approved for tirzepatide injections, so he has been losing weightthrough dietary changes and increased physical activity. He has lost more than 10 pounds, noting hewas 321 pounds when he visited his floor grinder. Social History: Sleep: Reports disrupted sleep due [...] testing. Education provided for medications. Goal A1C <7and BP <130/80 for suboptimally controlled diabetes. I have encouraged patient to check feet regularly and to see ophthomololgist annually. I have discussed the need for regular testing and followup. We will recheck an A1C every 4 [...] Morbid (severe) obesity due to excess calories ([facility]) -Down 10 lbs since last visit. Keep up the great work! Did discuss seeing if we could get insuranceto cover a different GLP1, he declines at this time would like to continue with lifestyle modifications. documented in this encounterMissouri Delta Medical CenterQottlnzfyi20-65-7824 History of Present illness Narrative* Maddie Latham PTA - 09/09/2024 2:30 PM EDT Images from the original note [...] his strength is gone and he is draggingright foot. Balance has been effected due to decrease strength. Losing his confidence in his ability to keep himself from falling. Precautions: Polio, bilateral TKA Subjective: bilateral hips / groin 10/23 I do the exercises and then I'm miserable for the next day Pain: 8-9 Objective: PT Evaluation (08/30/2024) LUMBAR SPINE AROM: [...] falls. Pt states increased LE pain up to9/10 when performing HEP discussed decreasing the number [...] to be instructed in home exercise program. Senior Care Goals: To be met in 10 weeks [...] Please sign below. Date: documented in this [facility]07-22-2025 History of Present illness Narrative* Arianna Lou DPM - 09/03/2024 1:00 PM EDT Images from the original note were not included. Subjective Patient ID: Quentin Winters is a 73 y.o. male who presents for DM Foot Care (Established patient presents today for routine diabetic nail care. PCP: Kenia WOODRUFF 07/09/24, A1C: 6.3 (05/2024), BS:99). HPI HPI Onychomycosis/Toenail Fungus: presents today requesting [...] medical comorbidities. Anti-coagulant therapy. Bilateral knee endoprosthesis. toenaildeformity. Chronic lumbar radiculopathy. Flexibility and mobility restraints. [...] mg) by mouth in the morning. Take beforemeals. Do not crush or chew., Disp: 90 [...] oriented. Pleasant disposition. Ambulatory with cane assist. WearingNew balance shoes. Vascular: DORSALIS PEDIS PULSE:1/4, bilaterally. [...] functional ankle and subtalar joint range of motion.Functional MTP joint range of motion. DEFORMITIES:mild, flexible, [...] understanding. Arianna Lou DPM documented in this encounterMissouri Delta Medical CenterYhmpmrjhri22-19-9377 History of Present illness Narrative* Valerie Argueta, PT - 08/30/2024 12:30 PM EDT Images from the original note [...] his strength is gone and he is draggingright foot. Balance has been effected due to [...] minutes) Strength, Endurance, Flexibility, ROM, HEP, Neural Mobilization,Power, and Core Stability as needed. Pt performed and instructed in home program this date; writteninstructions and pictures issued with good pt understanding. [...] to be instructed in home exercise program. Data Technical Lead Goals: To be met in 10 weeks [...] Please sign below. Date: documented in this [facility]07-03-2025 Telephone encounter Note* Telephone Encounter - Marjorie Thayer - 08/15/2024 1:28 PM EDT He contacted and noted he is going on vacation and will contact once he returns to schedule PT. [facility] CenterXdpnmzximi93-55-9289 Miscellaneous Notes* Telephone Encounter - Marjorie Thayer - 08/15/2024 1:28 PM EDT He contacted and noted he is going on vacation and will contact once he returns to schedule PT. * Telephone Encounter - Marjorie Thayer - 08/15/2024 1:25 PM EDT CAMMIE requesting a call back to schedule PT Eval. documented in this encounterMissouri Delta Medical CenterLsajgxlscl52-65-6518 Telephone encounter Note* Telephone Encounter - Marjorie Thayer - 08/15/2024 1:25 PM EDT CAMMIE requesting a call back to schedule PT Eval. [facility] CenterXflpbvycoj07-55-1976 Telephone encounter Note* Telephone Encounter - Doreen Gary - 07/24/2024 9:37 AM EDT Patient called back and message was given. He understood and had no further questions. [facility] CenterYaynsxsfqv57-71-2235 Miscellaneous Notes* Telephone Encounter - Doreen Gary - 07/24/2024 [...] to avoid NSAIDS ----- Message ----- From: Jessica Arreaga Lab Results In Sent: 07/23/2024 6:24 AM EDT To: Kenia Castillo NP documented in this encounterMissouri Delta Medical CenterMkiobjxtjb17-81-8052 Telephone encounter Note* Telephone Encounter - Amy Perez MA - 07/23/2024 7:22 PM EDT L/m letting pt know of message. [facility] CenterDcrvuhzlwx55-73-9547 Telephone encounter Note* Telephone Encounter - Amy Perez MA - 07/23/2024 7:22 PM EDT ----- Message from Kenia Castillo sent at 07/23/2024 6:13 PM EDT ----- Renal function back to baseline, he needs to avoid NSAIDS ----- Message ----- From: Whitley [employer] Lab Results In Sent: 07/23/2024 6:24 AM EDT To: Kenia Castillo NP [facility] CenterTyfxncfpff31-19-3154 Telephone encounter Note* Telephone Encounter - Doreen Gary - 07/23/2024 2:09 PM EDT Received as voicemail: José, my name is Quentin or Ching. My birthday is a [birth year]I am calling about the blood test that I had taken yesterday. Why did you probably find out about the results or what the dr. say about them? My phone number is [phone] would like to have a call back, please, thank you. [facility] CenterEqpkfercbx25-96-2894 Miscellaneous Notes* Telephone Encounter - Doreen Gary - 07/23/2024 2:09 PM EDT Received as voicemail: José, my name is Quentin or Ching. My birthday is a [birth year]I am calling about the blood test that I had taken yesterday. Why did you probably find out about the results or what the dr. say about them? My phone number is [phone] would like to have a call back, please, thank you. documented in this encounterMissouri Delta Medical CenterPycyehgmar59-50-2278 Telephone encounter Note* Telephone Encounter - Kenia Castillo NP - 07/09/2024 2:31 PM EDT Zepbound sent to pharmacy, most likely needs PA, please start, will need 4 week follow up if approved [facility] CenterBdyrezkequ48-08-2906 Miscellaneous Notes* Telephone Encounter - Kenia Castillo NP - 07/09/2024 2:31 PM EDT Zepbound sent to pharmacy, most likely needs PA, please start, will need 4 week follow up if approved documented in this encounterMissouri Delta Medical CenterHfmrcvhekk43-94-2610 History of Present illness Narrative* Kenia Castillo NP - 07/09/2024 2:00 PM [...] been managing his restless legs syndrome with mdpg-rnn-skvfcpe medication, taking up to ninetablets at a [...] mouth in the morning. documented in this [facility]05-16-2025 Telephone encounter Note* Telephone Encounter - Bernice Sidhu MA - 06/28/2024 1:55 PM EDT Gave number he will call and schedule [facility] CenterEccvygqzqn18-95-9144 Miscellaneous Notes* Telephone Encounter - Bernice Sidhu MA - 06/28/2024 1:55 PM EDT Gave number he will call and schedule * Telephone Encounter - Keina Castillo NP - 06/28/2024 1:51 PM EDT Open referral for sleep medicine, did he schedule with Dr. Plascencia in [place]? documented in this [facility]05-16-2025 Telephone encounter Note* Telephone Encounter - Kenia Castillo NP - 06/28/2024 1:51 PM EDT Open referral for sleep medicine, did he schedule with Dr. Plascencia in [place]? [facility] CenterXxjdjkknay24-46-3439 Miscellaneous Notes* Telephone Encounter - Rhona Herrera - 05/23/2024 9:52 AM EDT Pt is requesting a cough medicine but does not want the little egg looking. He is not better fromhis visit, the cough is keeping him up and he needs something to [facility] [place] documented in this encounterMissouri Delta Medical CenterLnfrlvmxpg48-93-1186 Telephone encounter Note* Telephone Encounter - Rhona Herrera - 05/23/2024 9:52 AM EDT Pt is requesting a cough medicine but does not want the little egg looking. He is not better fromhis visit, the cough is keeping him up and he needs something to get rid of it. [facility] [place] [facility] CenterDjhvurvapc20-39-2754 History of Present illness Narrative* Kenia Castillo NP - 05/20/2024 2:00 PM EDT Images from the original [...] has been experiencing ocular discharge since yesterday morning,which was particularly severe at the onset. He has not previously taken any allergy medications. He has been eating cookies lately. Supplemental Information He went to floor grinder on Monday, who said he looked pretty [...] whenever possible. Encouraged patient to wash pillow case.If any worsening of symptoms or if patient [...] secretions. Analgesics OTC prn. documented in this encounterMissouri Delta Medical CenterRgyhryfxpj69-29-3181 History of Present illness Narrative* Jannet Martinez RN - 02/23/2024 12:42 PM EST IV Sedation Discharge Criteria Inpatients must meet [...] 14. Accompanied by a responsible adult. Yes * Jannet Martinez RN - 02/23/2024 12:41 PM EST All discharge instructions given. All questions answered at this time. All belongings returned. * Ej Foster MD - 02/23/2024 12:00 PM EST Images from the original note were not included. Mr. Winters Date of : 1950 [id number] Procedure: Cardioversion Pre-operative Diagnosis: Persistent atrial fibrillation, symptomatic Post-operative Diagnosis: Successful cardioversion to NSR with 300J biphasic Anesthesia: General Anesthesia. Provided by our anesthesia team. Procedure: The procedure was done in the [facility]. Benefits, risks and alternatives were explained to the patient and he agreed to proceed. Informed consent obtained. A separate informed consent obtained by our anesthesia team. Timeout obtained by the [facility] nurse. The defibrillator pads were attached in [...] medications. Ej Foster MD, MS, F.A.C.CMercy [facility], [address] [address] , documented in this encounterBon [facility]01-10-2025 Hospital Discharge instructions* Discharge Instructions* Jannet Martinez, LESLEY - 02/23/2024 12:32 PM EST Images from [...] doctor prescribes. Do not take any vitamins, kzlo-xnp-qjglvpu medicines, or herbal products without talking to [...] or uneven pulse. After calling 911, the switchboard and control room operator may tell you to chew 1 [...] Where can you learn more? Go to [email or web address] and sign in to your Dropifi account. Enter A617 in the Search Health Information box to learn more about Electrical Cardioversion: What to Expect at Home. If you do not have an account, please click on the Sign Up Now link. [employer]. Care instructions adapted under license by [employer] [facility]. This care instruction is for use with your licensed healthcare professional. If you have questions about amedical condition or this instruction, always ask your healthcare professional. [employer] disclaims any warranty or liability for your use of this information. Content Version: 10.6.593617; Current as of: April 04, 2014 documented in this encounterBon [facility]01-07-2025 History of Present illness Narrative* Kenia Castillo NP - 02/20/2024 2:00 PM EST Images from the original note were not included. Zaina Winters is a 73 y.o. male presents with chief complaint of Medicare Annual Wellness Visit Subsequent HPI: HPI Getting an ablation on , having a procedure done by pain management soon sees pain management at [place]. Send results to Dr. Mata at [facility] Has an appointment with phil tracey in March in [place]. Not using cpap tried different mask couldn't [...] Do not crush, chew, or split. HYDROcodone-acetaminophen (Scuddy) 5-325 MG tablet 1 tablet, 2 times [...] Encouraged healthy diet and regular exercise. Discussed vaccinesand encouraged yearly flu shot. Annual eye and dental exam. Vaccines and cancer screens reviewed for completeness. Screen labs as needed. Assessed needs for tools in the home for independence. Livingwill and durable power of assistant city attorney reviewed. Updated patient problem list and reviewed all current medications with patient. Given time to ask questions. Mixed hyperlipidemia (CMS/[facility]) - Lipid panel; Future -On a statin Primary hypertension (CMS/[facility]) - Comprehensive metabolic panel; Future - Lipid [...] complication, without long-term current use of insulin (CMS/[facility]) - Hemoglobin A1c; Future - Comprehensive metabolic [...] after eating. [employer] HOB. Paroxysmal atrial fibrillation ([facility]) -On eliquis, scheduled for ablation later this [...] Morbid (severe) obesity due to excess calories ([facility]) Colon cancer screening declined Screening PSA (prostate specific antigen) - PSA; Future Benign prostatic hyperplasia with lower urinary tract symptoms, symptom details unspecified -Stable Body mass index (BMI) 40.0-44.9, adult ([facility]) documented in this encounterMissouri Delta Medical CenterMtwpgfuvuy38-88-9728 Telephone encounter Note* Telephone Encounter - Jeannine Evangelista NP - 01/01/2024 9:36 AM EST Sent prescription. [facility] CenterYvyrcudaty29-00-6469 Miscellaneous Notes* Telephone Encounter - Jeannine Evangelista NP - 01/01/2024 9:36 AM EST Sent prescription. * Telephone Encounter - Rhona Herrera - 12/29/2023 12:10 PM EST Informed patient that [facility] and he states I told her those don't work for me He wants you to send something stronger. * Telephone Encounter - Jeannine Evangelista NP - 12/29/2023 11:53 AM EST [facility] to [facility] * Addendum Note - Rhona Herrera - 12/29/2023 10:45 AM ESTAddended by: RHONA HERRERA on: 12/29/2023 10:45 AM Modules accepted: Orders * Telephone Encounter - Rhona Herrera - 12/29/2023 10:43 AM EST [facility] [place]. I believe the mariela tolbert weresent. * Telephone Encounter - Taryn Anderson - 12/28/2023 10:08 AM EST Patient was seen on 12/25 and has been taking otc cough syrup and it is not helping at all. He is requesting a prescription for cough syrup sent to [facility] in [place]. Ty documented in this [facility]11-18-2024 History of Present illness Narrative* Jeannine Evangelista NP - 01/01/2024 9:35 AM EST Prescription sent documented in this [facility]11-15-2024 Telephone encounter Note* Telephone Encounter - Kenia Castillo NP - 12/29/2023 2:42 PM EST I sent in a few days of steroids to help with cough N[facility] Pdmuzevjer84-28-8888 Miscellaneous Notes* Telephone Encounter - Kenia Castillo NP - 12/29/2023 2:42 PM EST I sent in a few days of steroids to help with cough * Telephone Encounter - Leonora Deras - 12/29/2023 1:38 PM EST Can something else be sent in for pt to help with cough other than tesslon perles? Please contact pt with response. [facility] [place] documented in this encounterMissouri Delta Medical CenterBmhmxjvqyr89-22-1437 Telephone encounter Note* Telephone Encounter - Leonora Deras - 12/29/2023 1:38 PM EST Can something else be sent in for pt to help with cough other than tesslon perles? Please contact pt with response. [facility] [place] [facility] HospitalHwkqnfewok87-12-4375 Telephone encounter Note* Telephone Encounter - Rhona Herrera - 12/29/2023 12:10 PM EST Informed patient that [facility] and he states I told her those don't work for me He wants you to send something stronger. [facility] CenterItulsbppul72-92-5237 Telephone encounter Note* Telephone Encounter - Jeannine Evangelista NP - 12/29/2023 11:53 AM EST [facility] CenterPyxbuqkvpt32-76-7811 History of Present illness Narrative* Jeannine Evangelista NP - 12/29/2023 11:52 AM EST Prescription sent documented in this encounterMissouri Delta Medical CenterYmedzvubkp45-17-4995 Note* Addendum Note - Rhona Herrera - 12/29/2023 10:45 AM ESTAddended by: RHONA HERRERA on: 12/29/2023 10:45 AM Modules accepted: Orders [place] [id number] Telephone encounter Note* Telephone Encounter - Rhona Herrera - 12/29/2023 10:43 AM EST [facility] to [facility] in [place]. I believe the marieal tolbert weresent. [place] [id number] History of Present illness Narrative* Jeannine Evangelista NP - 12/28/2023 1:02 PM EST Prescription sent documented in this encounterMissouri Delta Medical CenterCqlqdfjexo19-07-2200 Telephone encounter Note* Telephone Encounter - Taryn Anderson - 12/28/2023 10:08 AM EST Patient was seen on 12/25 and has been taking otc cough syrup and it is not helping at all. He is requesting a prescription for cough syrup sent to [facility] in [place]. Ty [place] [id number] History of Present illness Narrative* Jeannine Evangelista NP - 12/26/2023 1:00 PM EST Images from the original note [...] mg, Oral, 3 times daily PRN HYDROcodone-acetaminophen (Scuddy) 5-325 MG tablet 1 tablet, Oral, 2 [...] attention if symptoms worsen documented in this encounterMissouri Delta Medical CenterCklaumpkqr87-24-5582 Telephone encounter Note* Telephone Encounter - Mack Bray - 12/21/2023 9:43 AM EST Quentin called - was in for ear infection etc last week . Now he hs it - he's asking if you would just send in what you gave her . [facility] CenterXrcxrefbkp37-87-7136 Miscellaneous Notes* Telephone Encounter - Mack Bray - 12/21/2023 9:43 AM EST Quentin called - was in for ear infection etc last week . Now he hs it - he's asking if you would just send in what you gave her . documented in this encounterNOMS Zrernlpixq65-21-8893 History of Present illness Narrative* Arianna Lou, DPM - 11/15/2023 1:00 PM EDT Images from the original note [...] medical comorbidities. Anti-coagulant therapy. Bilateral knee endoprosthesis. toenaildeformity. Chronic lumbar radiculopathy. Flexibility and mobility restraints. [...] MORNING AND 1 TABLET BEFORE BEDTIME, Disp: 180tablet, Rfl: 1 atorvastatin (Lipitor) 10 MG tablet, TAKE 1 TABLET IN THE MORNING, Disp: 90 tablet, Rfl: 1 cyclobenzaprine (Flexeril) 10 MG tablet, Take 10 mg by mouth 3 (three) times a day as needed, Disp:, Rfl: HYDROcodone-acetaminophen (Scuddy) 5-325 MG tablet, Take 1 tablet by mouth 2 (two) times a day as needed, Disp: , Rfl: metFORMIN (Glucophage) 500 MG tablet, TAKE 1 TABLET IN THE MORNING AND 1 TABLET IN THE EVENING WITHMEALS, Disp: 180 tablet, Rfl: 0 metoprolol tartrate (Lopressor) 25 MG tablet, Take 0.5 tablets (12.5 mg) by mouth in the morning and 0.5 tablets (12.5 mg) before bedtime. Taking half a tablet in the morning and evening.., Disp: 90 tablet, Rfl: 1 omeprazole (PriLOSEC) [address] capsule, Take 1 capsule (20 mg) by mouth in the morning. Take beforemeals. Do not crush or chew.., Disp: 90 [...] oriented. Pleasant disposition. Ambulatory with cane assist. WearingNew balance shoes. Vascular: DORSALIS PEDIS PULSE:1/4, bilaterally. [...] functional ankle and subtalar joint range of motion.Functional MTP joint range of motion. DEFORMITIES:mild, flexible, [...] understanding. Arianna Lou DPM documented in this [facility]10-02-2024 Instructions* Patient Instructions* Arianna Lou DPM - 11/15/2023 1:00 PM EDT As noted documented in this [facility]09-09-2024 Telephone encounter Note* Telephone Encounter - Chrystal Russell MA - 10/23/2023 6:13 PM EDT Patient is calling for refills. He is asking [facility]alni [facility] CenterFywvrpnosb13-57-9512 Miscellaneous Notes* Telephone Encounter - Chrystal Russell MA - 10/23/2023 6:13 PM EDT Patient is calling for refills. He is asking for [facility]alin documented in this [facility]08-28-2024 History of Present illness Narrative* Kenia Castillo NP - 10/11/2023 9:00 AM EDT Images from the original note were not included. Zaina Winters is a 73 y.o. male presents with chief complaint of Establish Care HPI: Patient fell and hit his face 8 months ago and banged his teeth. 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 07/18/2022 New onset a-fib ([facility]) Paroxysmal atrial fibrillation ([facility]) 12/17/2019 Peripheral edema 11/28/2018 Polio 07/29/2015 [id number] condition 04/27/2020 Primary osteoarthritis involving multiple joints 10/04/2022 Psoriasis ([facility]) 06/26/2017 PVD (peripheral vascular disease) ([facility]) 08/30/2021 Restless legs Restless legs syndrome 07/28/2022 [...] he gets surgery date. documented in this encounterMiss[facility] CenterPnzygyglqt23-08-1182 Telephone encounter Note* Telephone Encounter - Marjorie Thayer - 03/30/2023 1:17 PM EST 04/05 @ 1:00 pm . [facility] [id number] Miscellaneous Notes* Telephone Encounter - Marjorie Thayer - 03/30/2023 1:17 PM EST 04/05 @ 1:00 pm . * Telephone Encounter - Marjorie Thayer - 03/30/2023 12:51 PM EST So that reference # does nothing? His eval was 2/8, and is it noted per [facility] to continue, auth is needed? * Telephone Encounter - Marjorie Thayer - 03/30/2023 11:49 AM EST Would it be ok to schedule? documented in this encounterMissouri Delta Medical CenterStoqiuqhfj04-19-9559 Telephone encounter Note* Telephone Encounter - Marjorie Thayer - 03/30/2023 12:51 PM EST So that reference # does nothing? His eval was 2/8, and is it noted per [facility] to continue, auth is needed? [facility] [id number] Telephone encounter Note* Telephone Encounter - Marjorie Thayer - 03/30/2023 11:49 AM EST Would it be ok to schedule? [facility] CenterFvldoznuzm06-24-8951 Telephone encounter Note* Telephone Encounter - Marjorie Thayer - 03/29/2023 10:40 AM EST Pt cx PT out. [facility] CenterLzjhsjkkox02-07-4674 Miscellaneous Notes* Telephone Encounter - Marjorie Thayer - 03/29/2023 10:40 AM EST Pt cx PT out. documented in this encounterMissouri Delta Medical CenterWlfgtydpyb14-77-8047 Note [id number]#1.00[facility]08-08-2022 [id number]#1.00[facility] 09-18-2021 NoteEducation Materials POST OPERATIVE TOTAL KNEE/HIP DISCHARGE INTRUCTIONS [...] your doctor immediately or go to the emergencyroom. How can I prevent DVT? You should keep active. Moving the ankle and foot and bending the knee as tolerated when you are inbed and walking as tolerated. Take medication, especially [...] up every 2 hours while awake and walkaround with walker for 1 to 2 minutes. #7 Flex and extend knee over the side of the bed 10?4 times a day #8 follow up in office with physician oceanographer assistant Justo Redd as scheduled #9 [facility] will be contacting you within the next 24 hours to set up home therapy visits #11 You have been given a prescription for Percocet, Percocet is narcotic, narcotics are addictive.If you feel you have problems with addiction please feel free to contact Dr. Awad, your family physician, or proceed to the nearest hospital's emergency services department.[facility] CenterOiukpabb77-29-[address] [facility] Discharge Summary PERSON INFORMATION Name ZAINA WINTERS Age 70 Years 1950 Sex MALE Language Kenyan PCP Tonja ERNANDEZ, Jeannine Alfonso Marital Status Med Service Observation Acct# Arrival 09/17/2021 08:03:00 Visit Reason SURGERY-RIGHT TOTAL KNEE (GABRIELA) Acuity LOS 000 26:09 Address: [address] [place] [address] Comment: PROVIDER INFORMATION VITALS INFORMATION Vital Sign [...] 12.5 mg-50 mg oral tablet) 1 tab(s) Oralevery day. metoprolol (Metoprolol Tartrate 25 mg oral [...] range between ( 1.3 and 2.9 ) Kay Abs#: 1.3 x103/mcL -- Normal range between ( 0.0 and 0.8 ) Auto Baso %: 0.0 % -- Normal range between ( 0.2 and 2.0 ) Auto Kay %: 9 % -- Normal range between [...] (CUSTOM) Follow up: With: Address: When: Trenton Tramaine [address] [place] [address] Business (1) 10/01/2021 11:00 AM DIAGNOSIS Acute pain of right knee Comment: PHYS DOC [facility]01-20-2022 Note [id number]#1.00[facility]01-20-2022 [id number]#1.00[facility] 03-04-2021 [id number]#1.00[facility]01-19-2022 NoteEducation Materials POST OPERATIVE TOTAL KNEE/HIP DISCHARGE INTRUCTIONS [...] your doctor immediately or go to the emergencyroom. How can I prevent DVT? You should keep active. Moving the ankle and foot and bending the knee as tolerated when you are inbed and walking as tolerated. Take medication, especially [...] up every 2 hours while awake and walkaround with walker for 1 to 2 minutes. #7 Flex and extend knee over the side of the bed 10?4 times a day #8 follow up in office with physician oceanographer assistant Justo Redd as scheduled #9 [facility] will be contacting you within the next 24 hours to set up home therapy visits #11 You have been given a prescription for Percocet, Percocet is narcotic, narcotics are addictive.If you feel you have problems with addiction please feel free to contact Dr. Awad, your family physician, or proceed to the nearest hospital's emergency services department.[facility] [id number] [facility] 2SOUT Clinical Discharge Summary PERSON INFORMATION Name ZAINA WINTERS Age 70 Years 1950 Sex MALE Language Kenyan PCP Tonja ERNANDEZ, Jeannine Alfonso Marital Status Med Service Observation Acct# Arrival 03/02/2021 05:52:00 Visit Reason SURGERY - LEFT TOTAL KNEE POSSIBLE STEMS AND AUGS - NEX GEN TIBIA Acuity LOS 000 26:57 Address: [facility] [place] [facility] [address] Comment: PROVIDER INFORMATION VITALS INFORMATION Vital Sign [...] tab(s) Oral every 6 hours as needed asneeded for pain. Refills: 0. Medications That Were [...] 12.5 mg-50 mg oral tablet) 1 tab(s) Oralevery day. melatonin (melatonin 10 mg oral tablet) [...] range between ( 1.3 and 2.9 ) Kay Abs#: 1.9 x103/mcL -- Normal range between ( 0.0 and 0.8 ) Auto Baso %: 0.0 % -- Normal range between ( 0.2 and 2.0 ) Auto Kay %: 10 % -- Normal range between [...] range between ( 74 and 118 ) [facility] Order 03/03/2021 4:47 AM Tube Collected: [...] Follow up: With: Address: When: Trenton Redd [address] [place] [address], [facility] [address] [address] Business (1) 03/15/2021 10:30 AM With: Address: When: Jeannine Evangelista [facility] [place] [address] Business (1) DIAGNOSIS Aftercare following left knee joint rep (more content not included)...[facility] CenterAfepfnol47-02-4894 History of Present illness Narrative* Debi Lopez - 09/23/2020 11:30 AM EDT Instructed on policies and procedures. [facility] [employer] Work Phone: evaluation note* Diagnosis Persistent atrial fibrillation (HCC) Atrial fibrillation SOB (shortness of breath) Shortness of breath Essential hypertension Unspecified essential hypertension Other specified diabetes mellitus with other specified complication, unspecified whether fpc insulin use (HCC) Class 2 obesity with body mass index (BMI) of 36.0 to 36.9 in adult, unspecified obesity type, unspecified whether serious comorbidity present Pain in both lower extremities documented in this encounter [facility] [employer] Work Phone: evaluation note* Diagnosis Left thigh pain- Primary Pain in soft tissues of limb Muscle strain of left thigh, subsequent encounter documented in this [facility] HealthcareEvaluation noteNo assessment information availableMartins Ferry Hospital Work Phone: Evaluation note* Diagnosis Dermatophytosis of nail- Primary Dystrophic nail Other specified disease of nail Pain around toenail, right foot Pain around toenail, left foot documented in this encounter [facility]* Diagnosis Acute right otitis media- Primary Bronchitis Bronchitis, not specified as acute or chronic documented in this encounter [facility]* Diagnosis Bronchitis Bronchitis, not specified as acute or chronic documented in this encounter [facility]* Diagnosis Bronchitis- Primary Bronchitis, not specified as acute or chronic documented in this encounter [facility]* Diagnosis Bronchitis Bronchitis, not specified as acute or chronic documented in this encounter [facility]* Diagnosis Bronchitis- Primary Bronchitis, not specified as acute or chronic documented in [facility]* Diagnosis Dental abscess- Primary Periapical abscess without sinus documented in this encounter [facility]* Diagnosis Restless legs syndrome Restless legs syndrome (RLS) documented in this encounter [facility]* Diagnosis Paroxysmal atrial fibrillation (CMS/HCC) Atrial fibrillation documented in this encounter [facility]* Diagnosis Permanent atrial fibrillation (HCC) Atrial fibrillation Chronic anticoagulation Encounter for long-term (current) use of anticoagulants Essential hypertension Unspecified essential hypertension Type 2 diabetes mellitus with diabetic nephropathy, without long-term current use of insulin (HCC) History of COVID-19 Obesity, Class III, BMI 40-49.9 (morbid obesity) Morbid obesity [facility] note* Diagnosis Permanent atrial fibrillation (HCC) Atrial fibrillation Chronic anticoagulation Encounter for long-term (current) use of anticoagulants Essential hypertension Unspecified essential hypertension Type 2 diabetes mellitus with diabetic nephropathy, without long-term current use of insulin (HCC) History of COVID-19 Obesity, Class III, BMI 40-49.9 (morbid obesity) Morbid obesity documented in this encounter [facility] note* Diagnosis Acute cough- Primary documented in this encounter [facility]* Diagnosis Type 2 diabetes mellitus with diabetic peripheral angiopathy without gangrene (CMS/HCC) documented [facility] this [facility]* Diagnosis Paroxysmal atrial fibrillation (HCC)- Primary Atrial fibrillation PAF (paroxysmal atrial fibrillation) (HCC) Atrial fibrillation documented in this encounter [facility] note* Diagnosis Encounter for wellness examination- Primary Mixed hyperlipidemia (CMS/HCC) Mixed hyperlipidemia Primary hypertension (CMS/HCC) Unspecified essential hypertension Type 2 diabetes mellitus with other specified complication, without long-term current use of insulin ([facility]) Vitamin D deficiency Idiopathic chronic gout of [...] unspecified Body mass index (BMI) 40.0-44.9, adult (CMS/[facility]) documented in this encounter [facility]* Diagnosis AF (paroxysmal atrial fibrillation) ([facility]) Atrial fibrillation [facility]* Diagnosis Primary hypertension ([facility]) Unspecified essential hypertension documented in this encounter [facility]* Diagnosis Type 2 diabetes mellitus without complication, without long-term current use of insulin- Primary Acute bacterial conjunctivitis of both eyes Non-recurrent acute suppurative otitis media of left ear without spontaneous rupture of tympanic membrane documented in this encounter [facility]* Diagnosis Acute cough- Primary documented in this encounter [facility]* Diagnosis Paroxysmal atrial fibrillation ([facility]) Atrial fibrillation documented in this encounter [facility]* Diagnosis Localized edema- Primary Edema Restless legs syndrome Restless legs syndrome (RLS) POOL (obstructive sleep apnea) Obstructive sleep apnea (adult) (pediatric) Polio Acute unspecified poliomyelitis, unspecified poliovirus Primary hypertension ([facility]/HCC) Unspecified essential hypertension Benign prostatic hyperplasia with nocturia Gastroesophageal reflux disease without esophagitis Esophageal reflux Type 2 diabetes mellitus with diabetic peripheral angiopathy without gangrene ([facility]/HCC) Other hyperlipidemia Paroxysmal atrial fibrillation ([facility]/HCC) Atrial fibrillation Insomnia, unspecified type Lumbar radiculopathy Thoracic or lumbosacral neuritis or radiculitis, unspecified 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 documented in this encounter [facility]* Diagnosis Decreased renal function documented [...] Morbid (severe) obesity due to excess calories ([facility]-HCC) documented in this encounter [facility]* Diagnosis Spinal stenosis, lumbar region [...] tissues of limb documented in this encounter [facility] note* Diagnosis Spinal stenosis, lumbar region with neurogenic claudication- Primary Bilateral leg weakness Muscle weakness (generalized) Left thigh pain Pain in soft tissues of limb documented in this encounter [facility] HealthcareReason for visit Narrative* Consultation (Routine) - Pending ReviewSpecialtyDiagnoses / ProceduresReferred By ContactReferred To Contact Physical Therapy Diagnoses Left thigh pain Muscle strain of left thigh, subsequent encounter Procedures VA OFFICE/OUTPATIENT [facility] 60 MINUTES Trenton Redd, [place] [address] [facility] [address] [place] [address] Alex Rico, PT [address] [address] Referral IDStatusReasonStart DateExpiration DateVisits RequestedVisits [id number] Review Consult and Treat / [facility] HealthcareReason for visit Narrative* Rehabilitation - Outpatient (Routine) - Pending ReviewSpecialtyDiagnoses / ProceduresReferred By ContactReferred To ContactPhysical Therapy Diagnoses Spinal stenosis, lumbar region with neurogenic claudication Bilateral Leg Weakness Procedures [facility] PHYSICAL THERAPY EVALUATION LOW COMPLEX 20 MINS VA OFFICE/OUTPATIENT NEW HIGH [facility]DM 60 MINUTES Alley Richard NP [address] [place] [address] Phone: tel: fax: [facility] [address] [address] Phone: tel: fax: Referral IDStatusReasonStart DateExpiration DateVisits RequestedVisits [id number] Review/ [facility] HealthcareReason for visit Narrative* Rehabilitation - Outpatient (Routine) - AuthorizedSpecialtyDiagnoses / ProceduresReferred By ContactReferred To ContactPhysical Therapy Diagnoses Spinal stenosis, lumbar region with neurogenic claudication Bilateral Leg Weakness Procedures [facility] PHYSICAL THERAPY EVALUATION LOW COMPLEX 20 MINS VA OFFICE/OUTPATIENT NEW HIGH MDM 60 MINUTES Alley Richard NP [address] [place] [address] Phone: tel: fax: [facility] [place] [address] [address] Phone: tel: fax: Referral IDStatusReasonStart DateExpiration DateVisits RequestedVisits [id number]/18/20259/ [facility] Summary Purpose Family History No Family History Records FoundNo Family History Records FoundNo Family History Records FoundNo Family History Records FoundNo Family History Records FoundNo Family History Records FoundNo Family History Records FoundNo Family History Records Found Advance Directives No Advanced Directives Records FoundLatest Code Status on File Code StatusDate ActivatedDate InactivatedCommentsFull Code02/12/2020 7:58 AM 02/12/2020 11:52 AMCode StatusDate ActivatedDate InactivatedCommentsFull Code 02/12/2020 7:58 AM02/12/2020 11:52 AMCode StatusDate ActivatedDate Inactivated CommentsFull Code02/12/2020 7:58 AM Advance Directive Response Recorded Date/ Time Advance Directives No May 04, 2 024 4:36pm Date ActivatedDate AapzvpkytgsUbdkwria77/30/2020 7:58 AM02/12/2020 11:52 AM Reason for Referral StatusReasonSpecialtyDiagnoses / ProceduresReferred By ContactReferred To ContactClosedCardiology / Echocardiography Diagnoses Persistent atrial fibrillation (HCC) Essential hypertension SOB (shortness of breath) Fluid retention Other specified diabetes mellitus with other specified complication, unspecified whether fpc insulin use (HCC) Class 2 obesity with body mass index (BMI) of 36.0 to 36.9 in adult, unspecified obesity type, unspecified whether serious comorbidity present Procedures ECHO Complete 2D W Doppler W Color Ej Foster MD [address] [place] [phone] [facility] Echo [address] [place] [address] StatusReasonSpecialtyDiagnoses / ProceduresReferred By ContactReferred To ContactClosedRadiology Diagnoses Pain in both lower extremities PVD (peripheral vascular disease) ([facility]) Procedures VL LOWER EXTREMITY ARTERIAL SEGMENTAL PRESSURES W PPG Ej Foster MD [address] [place] [address] [place] [address] StatusReasonSpecialtyDiagnoses / ProceduresReferred By ContactReferred To ContactClosedCardiology Diagnoses Persistent atrial fibrillation (HCC) SOB (shortness of breath) Essential hypertension Other specified diabetes mellitus with other specified complication, unspecified whether fpc insulin use (HCC) Class 2 obesity with body mass index (BMI) of 36.0 to 36.9 in adult, unspecified obesity type, unspecified whether serious comorbidity present Pain in both lower extremities Procedures Echo 2D w doppler w color complete Ej Foster MD [address] [place] [address] [place] [address] SpecialtyDiagnoses / ProceduresReferred By ContactReferred To Contact Diagnoses Permanent atrial fibrillation (HCC) Chronic anticoagulation Essential hypertension Type 2 diabetes mellitus with diabetic nephropathy, without long-term current use of insulin (HCC) History of COVID-19 Obesity, Class III, BMI 40-49.9 (morbid obesity) Procedures Echo (TTE) complete (PRN contrast/bubble/strain/3D) VA ECHO TTHRC R-T 2D W/WOM-MODE COMPL SPEC&COLR D VA TTE W OR WO FOL WCON,DOPPLER Shalini Morrow PA-C [address] [place] [address] Referral IDStatusReasonStart DateExpiration DateVisits RequestedVisits [id number] Required - [id number] / ProceduresReferred By ContactReferred To Contact Diagnoses Permanent atrial fibrillation (HCC) Chronic anticoagulation Essential hypertension Type 2 diabetes mellitus with diabetic nephropathy, without long-term current use of insulin (HCC) History of COVID-19 Obesity, Class III, BMI 40-49.9 (morbid obesity) Procedures Extended cardiac holter monitor (3 days-14 day) VA EXTERNAL ECG REC>48HR<7D REVIEW & INTERPRETATION VA EXTERNAL ECG REC>48HR<7D RECORDING VA EXTERNAL ECG REC>7D<15D RECORDING VA EXTERNAL ECG REC>7D<15D REVIEW & INTERPRETATION Shalini Morrow PA-C [address] [place] [address] Referral IDStatusReasonStart DateExpiration DateVisits RequestedVisits [id number] Required - [id number] / ProceduresReferred By ContactReferred To ContactCardiology Diagnoses PAF (paroxysmal atrial fibrillation) (HCC) Procedures Cardioversion external HC CARDIOVERSION Ej Foster MD [address] [place] [address] [place] [address] Referral IDStatus[facility] DateExpiration DateVisits RequestedVisits [id number] Required - [id number] / ProceduresReferred By ContactReferred To ContactCardiology Diagnoses AF (paroxysmal atrial fibrillation) (HCC) Procedures Extended cardiac holter monitor (3 days-14 day) VA EXTERNAL ECG REC>48HR<7D REVIEW & INTERPRETATION VA EXTERNAL ECG REC>48HR<7D RECORDING VA EXTERNAL ECG REC>7D<15D RECORDING VA EXTERNAL ECG REC>7D<15D REVIEW & INTERPRETATION Ej Foster MD [address] [place] [address] [place] [address] Referral [facility]Status[facility] DateExpiration DateVisits RequestedVisits [id number]/13/20251/ History of Present Illness * Nini Todd - 01/22/2020 11:30 AM EST Explained policies and procedures of an echocardiogram/Doppler study. documented in this encounter* Arianna Allen RN - 02/12/2020 9:42 AM EST [employer] reviewed discharge instructions with patient and spouse. Both verbalized understanding. Denies questions. Copy of discharge instructions given to patient. documented in this encounter Assessments Diagnosis Persistent atrial fibrillation (HCC) Atrial fibrillation Essential hypertension Unspecified essential hypertension SOB (shortness of breath) Shortness of breath Fluid retention Other fluid overload Other specified diabetes mellitus with other specified complication, unspecified whether fur blower insulin use ([facility]) Class 2 obesity with body mass index (BMI) of 36.0 to 36.9 in adult, unspecified obesity type, unspecified whether serious comorbidity present Diagnosis Persistent atrial fibrillation (HCC) Atrial fibrillation Essential hypertension Unspecified essential hypertension SOB (shortness of breath) Shortness of breath Fluid retention Other fluid overload Other specified diabetes mellitus with other specified complication, unspecified whether fpc insulin use (HCC) Class 2 obesity with [...] mellitus with other specified complication, unspecified whether fur blower insulin use (HCC) Class 2 obesity with [...] doctor prescribes. Do not take any vitamins, ffnk-cjq-diwptwq medicines, or herbal products without talking to [...] or uneven pulse. After calling 911, the switchboard and control room operator may tell you to chew 1 [...] Where can you learn more? Go to [email or web address] and sign in to your [employer] account. Enter A617 in the Search Health Information box to learn more about Electrical Cardioversion: What to Expect at Home. If you do not have an account, please click on the Sign Up Now link. [phone] [employer]. Care instructions adapted under license by [employer] [facility]. This care instruction is for use with your licensed healthcare professional. If you have questions about amedical condition or this instruction, always ask your healthcare professional. [employer] disclaims any warranty or liability for your use of this information. Content Version: 10.6.654971; Current as of: April 04, 2014 documented in this encounter Chief Complaint and Reason for Visit Chief Complaint M54.16 Additional Source Comments (unrecognized sect ion and content) No Status Records FoundNo Status Records FoundNo Status Records FoundNo Status Records FoundNo Status Records FoundNo Status Records FoundNo Status Records FoundNo Status Records Found INFORMATION SOURCE (unrecogn ized section and content) DATE CREATED AUTHOR 12/21/2019 [facility] DATE CREATED AUTHOR AUTHOR'S ORGANIZ ATION 06/12/2021 [facility] [employer] DATE CREATED AUTHOR AUTHOR'S ORGANIZ ATION 10/25/2021 [facility] DATE CREATED AUTHOR AUTHOR'S ORGANIZ ATION 05/27/2023 [facility] DATE CREATED AUTHOR AUTHOR'S ORGANIZ ATION 07/02/2023 [facility] DATE CREATED AUTHOR AUTHOR'S ORGANIZ ATION 02/28/2024 [facility] DATE CREATED AUTHOR AUTHOR'S ORGANIZ ATION 10/08/2024 [facility] DATE CREATED AUTHOR AUTHOR'S ORGANIZ ATION 11/23/2024 [facility] Reason for Visit (unrecogniz ed section and content) StatusReasonSpecialtyDiagnoses / ProceduresReferred By ContactReferred To ContactClosedCardiology / Echocardiography Diagnoses Persistent atrial fibrillation (HCC) Essential hypertension SOB (shortness of breath) Fluid retention Other specified diabetes mellitus with other specified complication, unspecified whether fpc insulin use (HCC) Class 2 obesity with body mass index (BMI) of 36.0 to 36.9 in adult, unspecified obesity type, unspecified whether serious comorbidity present Procedures ECHO Complete 2D W Doppler W Color Ej Foster MD [address] [place] [address] [place] [address] [facility] Echo [address] [place] [address] [place] [address] StatusReasonSpecialtyDiagnoses / ProceduresReferred By ContactReferred To ContactClosedRadiology Diagnoses Pain in both lower extremities PVD (peripheral vascular disease) (HCC) Procedures VL LOWER EXTREMITY ARTERIAL SEGMENTAL PRESSURES W PPG Ej Foster MD [address] [place] [address] [place] [address] StatusReasonSpecialtyDiagnoses / ProceduresReferred By ContactReferred To ContactAuthorizedCardiology Diagnoses Essential hypertension Persistent atrial fibrillation (HCC) SOB (shortness of breath) Other specified diabetes mellitus with other specified complication, unspecified whether fpc insulin use (HCC) COVID-19 Procedures Referral to Cardiac Cath [facility] CARDIOVERSION ELECTIVE ARRHYTHMIA EXTERNAL Ej Foster MD [address] [place] [address] [place] [address] [place] [address] StatusReasonSpecialtyDiagnoses / ProceduresReferred By ContactReferred To ContactClosedCardiology Diagnoses Persistent atrial fibrillation (HCC) SOB (shortness of breath) Essential hypertension Other specified diabetes mellitus with other specified complication, unspecified whether fpc insulin use (HCC) Class 2 obesity with body mass index (BMI) of 36.0 to 36.9 in adult, unspecified obesity type, unspecified whether serious comorbidity present Pain in both lower extremities Procedures Echo 2D w doppler w color complete Ej Foster MD [address] [place] [address] [place] [address] ReasonOnset DateCommentsre: PT today4Called and noted auth is still pending for PT and in need to cx today; I informed I will keep up-to-date come his next on 03/30.ReasonOnset DateCommentsre: Eejcwtsjd15/14/2024He called re: coverage w/ insurance noted pending and [...] he said he will most certainly do so.ReasonOnset DateCommentsre: [employer] for PT03/30/2023He called noting he had just [facility] if referring provider refers fortherapy then PT would be covered. He gave a reference # [id number].ReasonCommentsToenail CarePCP: Kenia Cordonjtvictor manuel 10/11/23, A1C: 6.2, BS: 107ReasonCommentsCoughReasonCommentsEstablish CareReason CommentsMed RefillSpecialtyDiagnoses / ProceduresReferred By ContactReferred To Contact Diagnoses Permanent atrial fibrillation (HCC) Chronic anticoagulation Essential hypertension Type 2 diabetes mellitus with diabetic nephropathy, without long-term current use of insulin (HCC) History of COVID-19 Obesity, Class III, BMI 40-49.9 (morbid obesity) Procedures Echo (TTE) complete (PRN contrast/bubble/strain/3D) VA ECHO TTHRC R-T 2D W/WOM-MODE COMPL SPEC&COLR D VA TTE W OR WO FOL WCON,DOPPLER Shalini Morrow PA-C [address] [place] [address] Referral IDStatusReasonStart DateExpiration DateVisits RequestedVisits [id number] Required - [id number] / ProceduresReferred By ContactReferred To Contact Diagnoses Permanent atrial fibrillation (HCC) Chronic anticoagulation Essential hypertension Type 2 diabetes mellitus with diabetic nephropathy, without long-term current use of insulin (HCC) History of COVID-19 Obesity, Class III, BMI 40-49.9 (morbid obesity) Procedures Extended cardiac holter monitor (3 days-14 day) VA EXTERNAL ECG REC>48HR<7D REVIEW & INTERPRETATION VA EXTERNAL ECG REC>48HR<7D RECORDING VA EXTERNAL ECG REC>7D<15D RECORDING VA EXTERNAL ECG REC>7D<15D REVIEW & INTERPRETATION Shalini Morrow PA-C [address] [place] [address] Referral IDStatAv[facility] DateExpiration DateVisits RequestedVisits [id number] Required - [id number] / ProceduresReferred By ContactReferred To ContactCardiology Diagnoses PAF (paroxysmal atrial fibrillation) ([facility]) Procedures Cardioversion external HC CARDIOVERSION Ej Foster MD [address] [place] [address] [place] [address] Referral IDStaSouthern [place] [facility] DateExpiration DateVisits RequestedVisits [id number] Required - [id number] Annual Wellness Visit SubsequentSpecialtyDiagnoses / ProceduresReferred By ContactReferred To ContactCardiology Diagnoses AF (paroxysmal atrial fibrillation) (HCC) Procedures Extended cardiac holter monitor (3 days-14 day) VA EXTERNAL ECG REC>48HR<7D REVIEW & INTERPRETATION VA EXTERNAL ECG REC>48HR<7D RECORDING VA EXTERNAL ECG REC>7D<15D RECORDING VA EXTERNAL ECG REC>7D<15D REVIEW & INTERPRETATION Ej Foster MD [address] [place] [address] [place] [address] Referral IDStaSouthern [place] [facility] DateExpiration DateVisits RequestedVisits [id number]Thrlcw CommentsFoot SwellingReasonOnset DateCommentsPT Initial Eval08/15/2024Spinal Stenosis/ b/l leg weaknessCall Back5Call Back x208/26/2024He contacted and scheduled 08/30/24 for PT Eval w/ Leroy Argueta PT.ReasonCommentsDM Foot CareEstablished patient presents today for routine diabetic nail care. PCP: Kenia Castillo LV 07/09/24, A1C: 6.3 (05/2024), BS: 99ReasonCommentsDiabetes Care Teams (unrecognized sec tion and content) Team MemberRelationshipSpecialtyStart DateEnd Bernie Adam MD [address] [place] [address] PCP - ACO [facility]07/07/22 Bernie Adam MD [address] [place] [address] PCP - GeneralFamily Medicine08/01/22Team MemberRelationshipSpecialtyStart End Bernie Adam MD [address] [place] [address] PCP - ACO [facility]07/07/22 Bernie Adam MD [address] [place] [address] PCP - GeneralFamily Medicine08/01/22Team MemberRelationshipSpecialtyStart End Date Bernie Adam MD [address] [place] [address] PCP - ACO [facility]07/07/22 Bernie Adam MD [address] [place] [address] [facility]08/01/22Team MemberRelationshipSpecialtyStart DateEnd Date Bernie Adam MD [address] [place] [address] PCP - ACO [facility]07/07/22 Bernie Adam MD [address] [place] [address] PCP - [facility]08/01/22Team MemberRelationshipSpecialtyStart DateEnd Date Bernie Adam MD [address] [place] [address] PCP - [facility]07/07/22 Bernie Adam MD [address] [place] [address] PCP - [facility]08/01/22 Team Status: Active Member Role Status Dates KERA OlsenC Primary Care Provider Activ e Team Status: Inactive Member Role Status Dates Trenton Redd PA-C Attending Provider Active S tart: May 11, 2023 End: May 10KERA TaborCPrimary Care ProviderActiveStart: May 11, 2023 End: May 11, 2023 Team Status: Inactive Member Role Status AWAIS Chen Primary Care Provider Activ e Start: May 23, 2023 End: May 23, 2023Jose Chavira ProviderActiveStart: May 23, 2023 End: May 23, 2023Team MemberRelationshipSpecialtyStart DateEnd Date Bernie Adam MD [address] [place] [address] PCP - GeneralFamily Medicine08/01/22 Bernie dAam MD [address] [place] [address] PCP - [facility]06/14/23Te MemberRelationshipSpecialtyStart DateEnd Bernie Adam MD [address] [place] [address] [facility] - [facility]08/01/22 Bernie Adam MD [address] [place] [address] PCP - [facility]06/14/23Te MemberRelationshipSpecialtyStart End Bernie Adam MD [address] [place] [address] [facility] - [facility]08/01/22 Bernie Adam MD [address] [place] [address] PCP - [facility]06/14/23Te MemberRelationshipSpecialtyStart DateEnd Bernie Adam MD [address] [place] [address] [facility] - [facility]08/01/22 Bernie Adam MD [address] [place] [address] PCP - [facility]06/14/23Team MemberRelationshipSpecialtyStart DateEnd Date Bernie Adam MD [address] [place] [address] PCP - [facility] Medicine08/01/22 Bernie Adam MD [address] [place] [address] PCP - [facility]06/14/23Team MemberRelationshipSpecialtyStart DateEnd Date Bernie Adam MD [address] [place] [address] PCP - [facility]08/01/22 Bernie Adam MD [address] [place] [address] PCP - [facility]06/14/23Team MemberRelationshipSpecialtyStart DateEnd Date Bernie Adam MD [address] [place] [address] PCP - [facility]08/01/22 Bernie Adam MD [address] [place] [address] PCP - [facility]06/14/23Team MemberRelationshipSpecialtyStart DateEnd Date Bernie Adam MD [address] [place] [address] PCP - [facility]08/01/22 Bernie Adam MD [address] [place] [address] PCP - O [facility]06/14/23Team MemberRelationshipSpecialtyStart DateEnd Date Bernie Adam MD [address] [place] [address] PCP - GeneralFamily Medicine08/01/22 Bernie Adam MD [address] [place] [address] PCP - ACO [facility]06/14/23Team MemberRelationshipSpecialtyStart DateEnd Date Bernie Adam MD [address] [place] [address] [facility] - [facility]/01/22 Bernie Adam MD [address] [place] [address] PCP - [facility]06/14/23Team MemberRelationshipSpecialtyStart DateEnd Date Jeannine Evangelista APRN - VALIDATION TECHNICIAN [address] [place] [address] PCP - GeneralNurse Practitioner Qdhvzr75/17/20Team MemberRelationshipSpecialty Start DateEnd Date Jeannine Evangelista BOX ORDER PERSON - VALIDATION TECHNICIAN [address] [place] [address] PCP - GeneralNurse Practitioner Cxrzyq36/17/20Team MemberRelationshipSpecialty Start DateEnd Date Bernie Adam MD [address] [place] [address] PCP - GeneralFamily Medicine08/01/22 Bernie Adam MD [address] [place] [address] PCP - ACO [facility]06/14/23Team MemberRelationshipSpecialtyStart DateEnd Date Jeannine Evangelista, BOX ORDER PERSON - VALIDATION TECHNICIAN [address] [place] [address] PCP - GeneralNurse Practitioner Mmbtha90/17/20Team MemberRelationshipSpecialty Start DateEnd Date Bernie Adam MD [address] [place] [address] PCP - GeneralFamily Medicine08/01/22 Bernie Adam MD [address] [place] [address] PCP - O [facility]06/14/23Team MemberRelationshipSpecialtyStart DateEnd Date Jeannine Evangelista, BOX ORDER PERSON - VALIDATION TECHNICIAN [address] [place] [address] PCP - GeneralNurse Practitioner Qaxspo02/17/20Team MemberRelationshipSpecialty Start DateEnd Date Bernie Adam MD [address] [place] [address] PCP - GeneralFamily Medicine08/01/22 Bernie Adam MD [address] [place] [address] PCP - ACO [facility]06/14/23Team MemberRelationshipSpecialtyStart DateEnd Date Bernie Adam MD [address] [place] [address] PCP - GeneralFamily Medicine08/01/22Team MemberRelationshipSpecialtyStart DateEnd Date Bernie Adam MD [address] [place] [address] PCP - GeneralFamily Medicine08/01/22Team MemberRelationshipSpecialtyStart DateEnd Date Bernie Adam MD [address] [place] [address] PCP - GeneralFamily Medicine08/01/22Team MemberRelationshipSpecialtyStart DateEnd Date Bernie Adam MD [address] [place] [address] PCP - GeneralFamily Medicine08/01/22Team MemberRelationshipSpecialtyStart DateEnd Date Bernie Adam MD [address] [place] [address] PCP - GeneralFamily Medicine08/01/22Team MemberRelationshipSpecialtyStart DateEnd Date Bernie Adam MD [address] [place] [address] PCP - GeneralFamily Medicine08/01/22Team MemberRelationshipSpecialtyStart DateEnd Date Bernie Adam MD [address] [place] [address] PCP - GeneralFamily Medicine08/01/22Team MemberRelationshipSpecialtyStart DateEnd Date Bernie Adam MD [address] [place] [address] PCP - GeneralFamily Medicine08/01/22Team MemberRelationshipSpecialtyStart DateEnd Date Bernie Adam MD [address] [place] [address] PCP - GeneralFamily Medicine08/01/22Team MemberRelationshipSpecialtyStart DateEnd Date Bernie Adam MD [address] [place] [address] PCP - GeneralFamily Medicine08/01/22Team MemberRelationshipSpecialtyStart DateEnd Date Bernie Adam MD [address] [place] [address] PCP - GeneralFamily Medicine08/01/22Team MemberRelationshipSpecialtyStart DateEnd Date Bernie Adam MD [address] [place] [address] PCP - GeneralFamily Medicine08/01/22Team MemberRelationshipSpecialtyStart DateEnd Date Bernie Adam MD [address] [place] [address] PCP - GeneralFamily Medicine08/01/22Team MemberRelationshipSpecialtyStart DateEnd Date Bernie Adam MD [address] [place] [address] PCP - GeneralFamily Medicine08/01/22Team MemberRelationshipSpecialtyStart DateEnd Date Bernie Adam MD [address] [place] [address] PCP - GeneralFamily Medicine08/01/22Team MemberRelationshipSpecialtyStart DateEnd Date Bernie Adam MD [address] [place] [address] PCP - GeneralFamily Medicine08/01/22Team MemberRelationshipSpecialtyStart DateEnd Date Bernie Adam MD [address] [place] [address] PCP - GeneralFamily Medicine08/01/22Team MemberRelationshipSpecialtyStart DateEnd Date Bernei Adam MD [address] [place] [address] PCP - GeneralFamily Medicine08/01/22Team MemberRelationshipSpecialtyStart DateEnd Date Bernie Adam MD [address] [place] [address] PCP - GeneralFamily Medicine08/01/22Team MemberRelationshipSpecialtyStart DateEnd Date Bernie Adam MD [address] [place] [address] PCP - GeneralFamily Medicine08/01/22Team MemberRelationshipSpecialtyStart DateEnd Date Bernie Adam MD [address] [place] [address] PCP - GeneralFamily Medicine08/01/22Team MemberRelationshipSpecialtyStart DateEnd Date Bernie Adam MD [address] [place] [address] PCP - GeneralFamily Medicine08/01/22 Goals (unrecognized section and content) Goals may be documented in a n alternate sectionGoals may be documented in an alternate section Ordered Prescriptions (unrec ognized section and content) PrescriptionSigDispensedRefillsStart DateEnd Date amiodarone (CORDARONE) 200 MG tablet Take 1 tablet by mouth daily 30 tablet metoprolol tartrate (LOPRESSOR) 25 MG tablet Take [...] BE BASED ON THE PRIMARY CLINICAL RECORDS. [facility] [employer] [facility]. provides no warranty or guarantee of the accuracy or completeness of information in this document.
--- NOTE | 2025-01-15 14:47 | PM.CN ---
Consult Note: HPI Data of Consult Patient: known to practice within the last 3 years Consult date: 01/15/25 Requesting Physician: Kleley Richard NP Primary Care Provider: Non-Staff Physician, MD Consult Narrative Reason for consult: left hip pain Narrative: Yang Card a pleasant 74 year old male presents for evaluation of chronic left hip pain. pt has a hx of left hip OA with benefit to steroidal injections. has failed to benefit from > 6 weeks of HEP/PT, heat, ice, tylenol, and cannot take NSAIDs as he is on eliquis. notes pain 10/10 sharp stabbing in left thigh and groin. utilizing gabapentin 600mg BID, robaxin 500-1000mg bid prn pain/spasms, tylenol prn, and hydrocodone-acetaminophen 5-325mg very sparingly with benefit without side effects. cc:: CC: Kelley Richard NP Review of Systems ROS Musculoskeletal Reports: extremity pain and joint pain PFSH PFSH Medical History (Updated 08/14/24 @ 14:17 by Kelley Richard NP) Diabetes ?E11.9 - Type 2 diabetes mellitus without complications (ICD-10) High cholesterol ?E78.00 - Pure hypercholesterolemia, unspecified (ICD-10) Atrial fibrillation, chronic ?I48.20 - Chronic atrial fibrillation, unspecified (ICD-10) HTN (hypertension) ?I10 - Essential (primary) hypertension (ICD-10) Surgical History History of knee surgery ?Z98.890 - Other specified postprocedural states (ICD-10) History of back surgery ?Z98.890 - Other specified postprocedural states (ICD-10) Meds Home Medications and Allergies Home Medications ?Medication ?Instructions ?Recorded ?Confirmed ?Type allopurinol 100 mg tablet 100 mg PO DAILY 06/22/23 11/18/24 History apixaban 5 mg tablet (Eliquis) 5 mg PO BID 06/22/23 11/18/24 History ascorbic acid (vitamin C) 500 mg 500 mg PO DAILY 06/22/23 11/18/24 History chewable tablet atorvastatin 10 mg tablet 10 mg PO DAILY 06/22/23 11/18/24 History cholecalciferol (vitamin D3) 25 1,000 unit PO DAILY 06/22/23 11/18/24 History mcg (1,000 unit) tablet (Vitamin D3) losartan 50 mg-hydrochlorothiazide 1 tab PO DAILY 06/22/23 11/18/24 History 12.5 mg tablet metformin 500 mg tablet 500 mg PO BID 06/22/23 11/18/24 History metoprolol tartrate 25 mg tablet 12.5 mg PO BID 06/22/23 11/18/24 History omeprazole 20 mg capsule,delayed 20 mg PO DAILY 06/22/23 11/18/24 History release ropinirole 1 mg tablet 1.5 mg PO DAILY 06/22/23 11/18/24 History tamsulosin 0.4 mg capsule 0.4 mg PO DAILY 06/22/23 11/18/24 History gabapentin 600 mg tablet 600 mg PO BID #60 tabs 04/08/24 11/18/24 Rx hydrocodone 5 mg-acetaminophen 325 1 tab PO BID PRN pain #14 tabs 06/19/24 11/18/24 Rx mg tablet baclofen 10 mg tablet See Rx Instructions .Route 07/17/24 11/18/24 Rx .COMPLEX PRN muscle spasm #30 tabs gabapentin 600 mg tablet 600 mg PO BID #60 tabs 11/28/24 Rx methocarbamol 500 mg tablet See Rx Instructions .Route 11/28/24 Rx .COMPLEX spasms #120 tabs Allergies Allergy/AdvReac Type Severity Reaction Status Date / Time No Known Drug Allergies Allergy Verified 11/18/24 11:28 Exam Constitutional Documenting provider has reviewed patient's vital signs: yes Common normals: no apparent distress, oriented x3, healthy appearing, alert and well nourished General appearance: cooperative [facility] Common normals: normocephalic, hearing grossly normal bilaterally and moist oral mucous membranes Head and scalp: normocephalic Eye Common normals: PERRL Pupil: PERRL Neck & C-Spine Common normals: full ROM General: normal visual inspection Chest Common normals: inspection of chest normal Respiratory Common normals: normal respiratory effort, no retractions and no use of accessory muscles Back & Pelvis Lumbar spine/lower back: pain with ROM, lumbar spinal tenderness and straight leg raise positive left Extremity Left lower extremity: hip joint Other: moderate pain with internal and external rotation Neuro Common normals: oriented x3 Sensorium/orientation: alert Psych Common normals: mental status grossly normal, thought process normal, cooperative, affect normal, speech normal and activity/motor behavior normal Speech: normal speech Thought process: normal thought process Results Additional Findings Additional findings: If on a controlled substance or opioids, I have checked an [place] report on this patient and there are no aberrancies noted in the prescribing history.??If on a controlled substance or opioid a drug screen was completed and reviewed within the last year, and if there has not been a drug screen completed we ordered one today to monitor higher risk, state monitored pain medication use. As part of providing excellent, safe, comprehensive care, the following was completed at our patient's visit: 1. A medication reconciliation and review to ensure accurate knowledge of current/active medications, including asking our patients to inform us about any ugwi-lda-opomqst medications or herbal remedies/nutritional supplements/alternative remedies. 2. A review to specifically ensure our patients have had annual screening for screening for depression, screening for tobacco use, and screening for unhealthy alcohol use. For concerning screenings had a discussion with the patient, provided patient education, and recommended follow-up with primary care provider when appropriate. If patient noted with a risk of falling, they received education on strength, gait, and balance training to prevent future risk of falling. Portions of this note may have been carried over from the previous visit and updated as appropriate. Please note this office utilizes paper charting in addition to the electronic medical record. A list of current medications, vitals, and PMH is available there as the clinical staff outside of myself do not have access to [employer] charting during the clinic day operations. As part of providing quality comprehensive care the current medications, vitals, and PMH were reviewed in the paper chart. Assessment and Plan Assessment and Plan (1) Osteoarthritis of left hip: Assessment and Plan: The patient has had over 3 months of moderate to severe left hip pain with functional impairment and inadequate response to conservative care including NSAIDS (unless there are contraindication such as concurrent blood thinners), multiple oral or topical pain medications, and home exercise program/physical therapy.? Patient has completed >6 weeks of guided home exercise program and/or formal physical therapy program without relief of their symptoms.? The Oswestry Disability Index was completed, and the patient scored a 72%.? 11/06 left hip injection >50% improvement greater than 4 months 11/18/24 left hip injection >50% improvement for 2 weeks per pt (2) Lumbar stenosis with neurogenic claudication: (3) Meralgia paresthetica of left side: (4) Chronic prescription opiate use: Plan refill hydrocodone-acetaminophen 5-325mg bid prn moderate to severe pain 60 tabs to last 30 days. pt notes moderate pain relief without side effects. continue lyrica 100mg TID continue robaxin 500-1000mg bid prn pain/spasms pt considering scs trial pt not interested in additional orthopedic consult for left hip pain/oa f/u 1 month
== END 2025-01-15 14:15 | disposition home or self-care (01) ==
PROVIDERS: Visit Provider Nurse Practitioner
DX: M16.12 Unilateral primary osteoarthritis, left hip (principal); M48.062 Spinal stenosis, lumbar region with neurogenic claudication; G57.12 Meralgia paresthetica, left lower limb; Z79.891 Long term (current) use of opiate analgesic
CPT/HCPCS: G0463

== ENCOUNTER 2025-02-12 14:00 | Outpatient (OUT) | payer OTHER, SELFPAY ==
--- NOTE | 2025-02-12 14:19 | PM.CN ---
Consult Note: HPI Data of Consult Patient: known to practice within the last 3 years Consult date: 01/15/25 Requesting Physician: Kelley Richrad NP Primary Care Provider: Non-Staff Physician, MD Consult Narrative Reason for consult: left hip pain Narrative: Yang Card a pleasant 74 year old male presents for evaluation of chronic left hip pain. pt has a hx of left hip OA with benefit to steroidal injections. has failed to benefit from > 6 weeks of HEP/PT, heat, ice, tylenol, and cannot take NSAIDs as he is on eliquis. notes pain 4/10 sharp stabbing in left thigh and groin. utilizing lyrica 100mg TID, tylenol prn, and hydrocodone-acetaminophen 5-325mg BID PRN with significant relief. denies side effects. cc:: CC: Kelley Richard NP Review of Systems ROS Musculoskeletal Reports: extremity pain [facility] Medical History (Updated 08/14/24 @ 14:17 by Kelley Richard NP) Diabetes ?E11.9 - Type 2 diabetes mellitus without complications (ICD-10) High cholesterol ?E78.00 - Pure hypercholesterolemia, unspecified (ICD-10) Atrial fibrillation, chronic ?I48.20 - Chronic atrial fibrillation, unspecified (ICD-10) HTN (hypertension) ?I10 - Essential (primary) hypertension (ICD-10) Surgical History History of knee surgery ?Z98.890 - Other specified postprocedural states (ICD-10) History of back surgery ?Z98.890 - Other specified postprocedural states (ICD-10) Meds Home Medications and Allergies Home Medications ?Medication ?Instructions ?Recorded ?Confirmed ?Type allopurinol 100 mg tablet 100 mg PO DAILY 06/22/23 11/18/24 History apixaban 5 mg tablet (Eliquis) 5 mg PO BID 06/22/23 11/18/24 History ascorbic acid (vitamin C) 500 mg 500 mg PO DAILY 06/22/23 11/18/24 History chewable tablet atorvastatin 10 mg tablet 10 mg PO DAILY 06/22/23 11/18/24 History cholecalciferol (vitamin D3) 25 1,000 unit PO DAILY 06/22/23 11/18/24 History mcg (1,000 unit) tablet (Vitamin D3) losartan 50 mg-hydrochlorothiazide 1 tab PO DAILY 06/22/23 11/18/24 History 12.5 mg tablet metformin 500 mg tablet 500 mg PO BID 06/22/23 11/18/24 History metoprolol tartrate 25 mg tablet 12.5 mg PO BID 06/22/23 11/18/24 History omeprazole 20 mg capsule,delayed 20 mg PO DAILY 06/22/23 11/18/24 History release ropinirole 1 mg tablet 1.5 mg PO DAILY 06/22/23 11/18/24 History tamsulosin 0.4 mg capsule 0.4 mg PO DAILY 06/22/23 11/18/24 History gabapentin 600 mg tablet 600 mg PO BID #60 tabs 04/08/24 11/18/24 Rx hydrocodone 5 mg-acetaminophen 325 1 tab PO BID PRN pain #14 tabs 06/19/24 11/18/24 Rx mg tablet baclofen 10 mg tablet See Rx Instructions .Route 07/17/24 11/18/24 Rx .COMPLEX PRN muscle spasm #30 tabs gabapentin 600 mg tablet 600 mg PO BID #60 tabs 11/28/24 Rx methocarbamol 500 mg tablet See Rx Instructions .Route 11/28/24 Rx .COMPLEX spasms #120 tabs hydrocodone 5 mg-acetaminophen 325 1 tab PO BID PRN pain #60 tabs 01/15/25 Rx mg tablet naloxone 4 mg/actuation nasal 4 mg intranasal Q3M PRN opioid 01/16/25 Rx spray (Narcan) overdose #2 ea pregabalin 100 mg capsule (Lyrica) 100 mg PO TID #90 caps 01/29/25 Rx hydrocodone 5 mg-acetaminophen 325 1 tab PO TID PRN pain #90 tabs 02/12/25 Rx mg tablet Allergies Allergy/AdvReac Type Severity Reaction Status Date / Time No Known Drug Allergies Allergy Verified 11/18/24 11:28 Exam Constitutional Documenting provider has reviewed patient's vital signs: yes Common normals: no apparent distress, oriented x3 and alert General appearance: cooperative HENMT Common normals: normocephalic, hearing grossly normal bilaterally and moist oral mucous membranes Head and scalp: normocephalic Eye Common normals: PERRL Pupil: PERRL Neck & C-Spine Common normals: full ROM General: normal visual inspection Chest Common normals: inspection of chest normal Respiratory Common normals: normal respiratory effort, no retractions and no use of accessory muscles Back & Pelvis Lumbar spine/lower back: pain with ROM, lumbar spinal tenderness and straight leg raise positive left Extremity Left lower extremity: hip joint Other: moderate pain with internal and external rotation Neuro Common normals: oriented x3 Sensorium/orientation: alert Psych Common normals: mental status grossly normal, thought process normal, cooperative, affect normal, speech normal and activity/motor behavior normal Speech: normal speech Thought process: normal thought process Results Additional Findings Additional findings: If on a controlled substance or opioids, I have checked an [place]AR[place] report on this patient and there are no aberrancies noted in the prescribing history.??If on a controlled substance or opioid a drug screen was completed and reviewed within the last year, and if there has not been a drug screen completed we ordered one today to monitor higher risk, state monitored pain medication use. As part of providing excellent, safe, comprehensive care, the following was completed at our patient's visit: 1. A medication reconciliation and review to ensure accurate knowledge of current/active medications, including asking our patients to inform us about any hilw-min-jilpfog medications or herbal remedies/nutritional supplements/alternative remedies. 2. A review to specifically ensure our patients have had annual screening for screening for depression, screening for tobacco use, and screening for unhealthy alcohol use. For concerning screenings had a discussion with the patient, provided patient education, and recommended follow-up with primary care provider when appropriate. If patient noted with a risk of falling, they received education on strength, gait, and balance training to prevent future risk of falling. Portions of this note may have been carried over from the previous visit and updated as appropriate. Please note this office utilizes paper charting in addition to the electronic medical record. A list of current medications, vitals, and PMH is available there as the clinical staff outside of myself do not have access to [employer] charting during the clinic day operations. As part of providing quality comprehensive care the current medications, vitals, and PMH were reviewed in the paper chart. Assessment and Plan Assessment and Plan (1) Osteoarthritis of left hip: Assessment and Plan: The patient has had over 3 months of moderate to severe left hip pain with functional impairment and inadequate response to conservative care including NSAIDS (unless there are contraindication such as concurrent blood thinners), multiple oral or topical pain medications, and home exercise program/physical therapy.? Patient has completed >6 weeks of guided home exercise program and/or formal physical therapy program without relief of their symptoms.? The Oswestry Disability Index was completed, and the patient scored a 72%.? 11/06 left hip injection >50% improvement greater than 4 months 11/18/24 left hip injection >50% improvement for 2 weeks per pt (2) Lumbar stenosis with neurogenic claudication: (3) Meralgia paresthetica of left side: (4) Chronic prescription opiate use: Assessment and Plan: I feel these medications are improving the patient's quality of life and allow them to tolerate activities of daily living as well as participate in recreational activity.? The patient does not report intolerable side effects. The patient is NOT opioid naive and non-pharmacologic and non-opioid treatment has failed to significantly relieve the patient's pain and improve functionality. The patient has a diagnosis that is related to a somatic or visceral pain etiology. ? ?? I reviewed with the patient the potential risks and side effects with the use of? opioid medications including but not limited to respiratory depression,? sedation, and even . Within the last 12 months I have verified the patient has access to naloxone should? these effects occur. The patient was advised to let? their family know they had Naloxone in case they would need to administer? the medication. I advised the patient to avoid the use of any other? sedation substances including alcohol, THC, and benzodiazepines while? taking opioid medications due to the risk of compounding side effects and? detrimental outcomes. within the last 12 months I have reviewed the [employer], pain treatment agreement and urine drug screen.? ?? A drug screen was completed within the last year, and no aberrancies were noted regarding their use of controlled substances. The patient understands they are subject to the terms and conditions of the pain contract that they have signed. ? ?? I have checked an OARRS report on this patient today and there are no aberrancies noted in the prescribing history.? Plan increase norco 5-325mg TID PRN moderate to severe pain 90 tabs to last 30 days. unfortunately he is obtaining new insurance and will not be able to be seen by [facility], I attempted to contact his PCP today but was unable to leave a voicemail and they are closed for the holiday. I would like to discuss her taking over his medications while he searches for alternative pain management as he is noting >50% improvement in his pain > 5 hours with each dose and denies side effects. we did review the risks vs benefits and pt would like to continue opioid medication PRN as he has failed tylenol and cannot take NSAIDs on eliquis. continue lyrica 100mg TID stop robaxin due to ineffectiveness
--- OUTSIDE RECORDS SUMMARY | 2025-02-17 12:19 | XMS_ITS | Clinical Summary ---
Author Organization [facility] Address [facility] [id number] [address] [place] [address] Care Team Providers Care Geodetic Technician Name Role Phone Jeannine Evangelista DIRECT ENTRY MIDWIFE-BLAST FURNACE SUPERVISOR Primary Care Pro vider Allergies No known [...] DatePneumonia due to COVID-19 virus12/29/2019 Paroxysmal atrial pncijeplmtpy34/03/2020COVID-19102/14/2019 Social History Tobacco UseTypesPacks/DayYears UsedDateSmoking Tobacco: Never AssessedChildcare AnswerDate IcvkpcocVukaimrobWnelqzy13/02/2020EmploymentAnswerDate Recorded VmsgioxvgxKzougdj56/02/2020Purpose - LifeAnswerDate RecordedPurpose and direction in blrgYetccbk96/11/2021ex and Gender InformationValueDate Recorded Sex Assigned at BirthNot on fileLegal XgcFwfb7109/18/2014 11:25 AM EDTGender IdentityNot on fileSexual OrientationNot on file Last Filed Vital Signs Vital SignReadingTime TakenCommentsBlood Dsbsppik176/7212/29/2019 3:40 PM EST Hicxc619312/29/2019 3:40 PM JKBYavhgazbtvz20.9 ??C (98.4 ??F)12/29/2019 3:40 PM ESTRespiratory Chyq2434 3:40 PM ESTOxygen Brqcyrvqso18%12/29/2019 3:40 PM ESTInhaled Oxygen Concentration--Rkvjpu308.3 kg (287 lb 4.2 oz)12/21/2019 4:27 AM WFAIgcumb732.4 cm (6' 1 )12/20/2019 10:00 AM ESTBody Mass Index37.9 12/20/2019 10:00 AM EST Plan of Treatment Health MaintenanceDue DateLast DoneCommentsDepression Gyvttjhls53/21/1961Tobacco Xohmtqaab98/21/1961Zoster (Shingles) Vaccine (2 of 3)07/17/201204/10/2012Fall Risk Gfgfgufqz39/21/2014COVID-19 Vaccine ( season)2024 12/05/2022, 11/01/2021, 11/12/2020, Additional history existsInfluenza Vaccine 509/, 11/01/2021, 10/30/2021, Additional history existsDTaP,Tdap and Td Vaccines (2 - Td or Tdap)RSV ( or age 60+ yrs)Pxpzfkaod94/23/2023 Goals GoalPatient Goal TypeAssociated ProblemsRecent ProgressPatient-Stated?Author Discharge Jessi Desai RN Note: Evaluation of progress towards goal: Patient plans to discharge home self care with 's support. Medical Devices Not on file Insurance Advance Directives * Full Code (Latest Code Status on File) Date ActivatedDate ClbedktqnrgEcyekdgi23/2/2020 12:09 PM12/29/2019 7:27 PM Care Teams Team MemberRelationshipSpecialtyStart DateEnd Date Jeannine Evangelista APRN-BLAST FURNACE SUPERVISOR [address] [place] [address] PCP - GeneralInternal Ntikgnfc61/3/20
--- OUTSIDE RECORDS SUMMARY | 2025-02-17 12:19 | XMS_ITS | Clinical Summary ---
Author Organization [facility] Address [address] [place] [address] Care Team Providers Care Contracts Analyst Name Role Phone Unavailable Primary Care Provider Unavailabl e Social History Tobacco UseTypesPacks/DayYears UsedDateSmoking Tobacco: Never AssessedSex and Gender InformationValueDate RecordedSex Assigned at BirthNot on fileLegal Sex Male08/12/2021 12:32 AM EDTGender IdentityNot on fileSexual OrientationNot on file Plan of Treatment Not on file
--- OUTSIDE RECORDS SUMMARY | 2025-02-17 12:19 | XMS_ITS | Encounter Summary ---
Author Organization [facility] Address [address], [address] [place] [address] Care Team Providers Care Web Solutions Architect Name Role Phone Jeannine Evangelista PROFESSOR OF ARCHAEOLOGY - MASTER YACHT Primary Care P rovider Reason for Visit * ReasonOnset DateCommentsMedication Xzbpcd5401/31/2025 Encounter Details DateTypeDepartmentCare Team (Latest Contact Info)Yglworkiqed27/19/2025Refill [facility] [address] [phone] Ce Mccormick Medication Refill Social History Tobacco UseTypesPacks/DayYears UsedDateSmoking Tobacco: NeverSmokeless Tobacco: NeverAlcohol UseStandard Drinks/WeekCommentsYes6 (1 standard drink = 0.6 oz pure alcohol)occasionalSex and Gender InformationValueDate RecordedSex Assigned at BirthNot on fileLegal PycKkdw29/28/2020 1:46 PM EDTGender IdentityNot on file Sexual OrientationNot on filedocumented as of this encounter Plan of Treatment DateTypeDepartmentCare Team (Latest Contact Info)Sqizxsdxrhe30/14/2026 10:40 AM ESTOffice Visit [facility] [address] [phone] Anel Salcedo, PROFESSOR OF ARCHAEOLOGY - MASTER YACHT [address] [place] [address] [place] [address] follow up and cardiac clearancedocumented as of this encounter Visit Diagnoses Diagnosis AF (paroxysmal atrial fibrillation) (HCC) Atrial fibrillation PAF (paroxysmal atrial fibrillation) (HCC) Atrial fibrillation Paroxysmal atrial fibrillation (HCC) Atrial fibrillation Chronic anticoagulation Encounter for long-term (current) use of anticoagulants Shortness of breath Essential hypertension Unspecified essential hypertension documented in this encounter Care Teams Team MemberRelationshipSpecialtyStart DateEnd Date Jeannine Evangelista, PROFESSOR OF ARCHAEOLOGY - MASTER YACHT [address] [place] [address] PCP - GeneralNurse Practitioner, Vvioud94/17/20documented as of this encounter
--- OUTSIDE RECORDS SUMMARY | 2025-02-17 12:19 | XMS_ITS | Clinical Summary ---
Author Organization [facility] Address [address] [place] [address] Care Team Providers Care Shuttle Fixer Name Role Phone Bernie Adam MD Primary Care Provider [phone] Allergies No known active allergies Medications MedicationSigDispense [...] not crush or chew. 90 capsule 5Active losartan-hydroCHLOROthiazide (Hyzaar) 50-12.5 MG tablet Indications:Primary hypertensionTake 1 tablet by mouth in the morning. 90 tablet 5Active atorvastatin (Lipitor) 10 MG tablet Indications:Other hyperlipidemiaTake 1 tablet (10 mg) by mouth in the morning. 90 tablet 5Active amitriptyline (Elavil) 10 MG tablet Indications:Insomnia, unspecified type,Lumbar radiculopathyTake 1 tablet (10 mg) by mouth at bedtime 90 tablet 5Active methocarbamol (Robaxin) 500 MG tablet Take 500 mg by mouth every 8 (eight) hours if [id number] finasteride (Proscar) 5 MG tablet Indications:Benign prostatic hyperplasia with lower urinary tract symptoms, symptom details unspecifiedTake 1 tablet (5 mg) by mouth Daily Do not crush, chew, or split. 90 tablet 5Active metoprolol tartrate (Lopressor) 50 MG tablet Indications:Primary hypertension,Paroxysmal atrial fibrillation (HCC)TAKE 1 TABLET IN THE MORNING AND 1 TABLET BEFORE BEDTIME 180 tablet 5Active Additional Information Patient taking differently: 50 mg Oral Daily, Takes half in the morning half at night, Reported on 01/20/2025 rOPINIRole (Requip) 1 MG tablet Indications:Restless legs syndromeTAKE ONE AND ONE-HALF TABLETS AT BEDTIME 135 tablet 5Active pregabalin (Lyrica) 100 MG capsule Take 100 mg by mouth in the morning and 100 mg in the evening and 100 mg before bedtime.5Active HYDROcodone-acetaminophen (Alton) 5-325 MG tablet Take 1 tablet by mouth every 6 (six) hours if [id number] metFORMIN (Glucophage) 500 MG tablet Indications:Type 2 diabetes mellitus with diabetic peripheral angiopathy without gangrene (HCC)TAKE 1 TABLET IN THE MORNING AND 1 TABLET IN THE EVENING WITH MEALS 180 tablet 5Active apixaban (Eliquis) 5 MG tablet Indications:Paroxysmal atrial fibrillation (HCC)Take 1 tablet (5 mg) by mouth in the morning and 1 tablet (5 mg) before bedtime. 180 tablet 5Active allopurinol (Zyloprim) 100 MG tablet Indications: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TAKE 1 TABLET IN THE MORNING 90 tablet 6Active metFORMIN (Glucophage) 500 MG tablet Indications:Type 2 diabetes mellitus with diabetic peripheral angiopathy without gangrene (HCC)Take 1 tablet (500 mg) by mouth in the morning and 1 tablet (500 mg) in the evening. Take with meals. 180 tablet Discontinued apixaban (Eliquis) 5 MG tablet Indications:Paroxysmal atrial fibrillation (HCC)Take 1 tablet (5 mg) by mouth in the morning and 1 tablet (5 mg) before bedtime. 180 tablet Discontinued(Reorder) allopurinol (Zyloprim) 100 MG tablet Indications: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Take 1 tablet (100 mg) by mouth in the morning. 90 tablet Discontinued Active Problems ProblemNoted DateDiagnosed DateBody mass index (BMI) 40.0-44.9, adult07/09/2024 Limb yunwvhku00/03/1013Eswlrzvc90/03/7670Bvowujyegki44/03/2024Lumbar caoavnwhdxszj33/03/2024cute left-sided low back pain without mjnvvlyv42/12/2023 Left hip pain10/25/2022History of oeizcqkcxrzxq16/22/2023Osteoarthritis of both knees10/04/2022rimary osteoarthritis involving multiple luzwcv7910/04/2022 Restless legs tdcufamk84/15/2023ERD without ewjdwjqlrej01/05/2023Hyperlipidemia 07/18/20224554Uxqvlknxeewg23/05/2023Idiopathic chronic gout of left foot without slevil5507/18/2022VD (peripheral vascular disease)08/30/2021cquired leg length rmoukjdqzgj71/13/2022tatus post total left knee vdnygblflig87/31/2022Difficulty wjhriiy79/23/2022Artificial knee joint rprjtsh1603/03/2021Vitamin D deficiency 4403Mjsf-QCGRO-47 axqodeelh28/15/2021COVID-19004/27/2020Type 2 diabetes mellitus without kerxrznrnczqd34/19/2020Paroxysmal atrial qrzaczpgrzct49/03/2020 Assessment & Plan (01/20/2025 3:50 PM EST): -managed by cardiology Impaired fasting xhxzgva8412/12/2018Peripheral edema11/28/2018Tinea pedis 11/28/20183974Ffrjvlppv80/14/2018Chronic gouty jpooznhlx03/15/2016Polio ([facility]) 07/29/2015 Resolved Problems ProblemNoted DateDiagnosed DateResolved DateOther viral /04/2020 4Pneumonia due to COVID-19 virus4Pure hodndvistwsqrhpum79Sinus pain Encounters DateTypeDepartmentCare NdkfSxncouuejzs52/05/2026Refill [facility] [address] [facility] [place] [phone] Kenia Castillo NP Idiopathic chronic gout of left foot without hbwsyn4804/03/2024Refill [facility] [address] [facility] [place] [phone] Bernie Adam MD Paroxysmal atrial fibrillation (HCC)01/24/2025Refill [facility] [address] [facility] [place] [phone] Kenia Castillo NP Type 2 diabetes mellitus with diabetic peripheral angiopathy without gangrene (HCC)01/20/2025 2:00 PM ESTOffice Visit [facility] [address] [place] [phone] Kenia Castillo NP Type 2 diabetes mellitus with diabetic peripheral angiopathy without gangrene, without long-term current use of insulin (HCC) (Primary Dx); Primary hypertension; Benign prostatic hyperplasia with lower urinary tract symptoms, symptom details unspecified; Paroxysmal atrial fibrillation (HCC)01/20/2025 12:45 PM ESTAncillary Procedure [facility] [address] [facility] [address] [facility] [place] [address] Pain in left hip01/20/2025amboo flowsheet [facility] [address] [facility] [place] [phone] Kenia Castillo NP 01/20/20255713Exnfrh61/05/2025Refill [facility] [address] [facility] [place] [phone] Kenia Castillo NP Primary hypertension; Paroxysmal atrial fibrillation (HCC); Restless legs syndromefrom Last 3 Months Immunizations ImmunizationAdministration DatesNext DueInfluenza, High Dose Seasonal, Preservative Free11/21/2023,11/01/2022,11/27/2018,11/27/2017Influenza, High-dose Seasonal, Quadrivalent, Preservative Free10/30/2021,11/12/2020,11/11/2020, 11/27/2017Influenza, Seasonal, Quadrivalent, Avkxseniii25/19/2022Influenza, injectable, dykxniasiquu37/10/2017Influenza, injectable, quadrivalent, preservative free11/28/2019,11/28/2018,11/22/2016,12/11/2013Influenza, seasonal, iwphhvgatp53/29/2014,02/02/2012Influenza, seasonal, injectable, preservative free01/21/2015,03/13/2013Pfizer Purple Cap SARS-CoV-2 Qpihwhhflzd29/29/2021, 04/12/2020,1Pneumococcal Conjugate PCV 13007/29/2015Pneumococcal Conjugate PCV 4Pneumococcal Polysaccharide CEDL5049, 03/13/2013RSV, recombinant, protein subunit RSVpreF, adjuvant reconstitu, 120mcg/0.5mL, PF (Arexvy)12/05/20225941SIVW-HYJ-9 (COVID-19) vaccine, mRNA, spike protein, LNP, PF, 50 mcg/0.5 mL11/21/20234179XGYW-WPM-1 (COVID-19) vaccine, mRNA, spike protein, LNP, bivalent, preservative free, 30 mcg/0.3 mLdose, mauro-sucrose qowoeddjwrm76/19/7508RSVW-NmF-9, Oaziflsakvh35/19/6388Fktf83/16/2019Zoster, live 05/22/2012 Family History Medical HistoryRelationNameCommentsStrokeFatherHeart diseaseMotherHypertension [...] one occasion?Never 09/19/2023HQ-2AnswerDate RecordedPatient Health Questionnaire-2 Score0 01/20/2025Sex and Gender InformationValueDate RecordedSex Assigned at BirthNot on fileLegal XgqQpyb9404/27/2022 7:26 PM EDTGender IdentityNot on fileSexual OrientationNot on file Last Filed Vital Signs Vital SignReadingTime TakenCommentsBlood Jkebqoyb436/8601/20/2025 1:51 PM EST Kdzgd047201/20/2025 1:51 PM MWAAvwomidahcw65.2 ??C (98.9 ??F)05/20/2024 1:54 PM EDTRespiratory Qsrs997209/18/2024 12:54 PM EDTOxygen Qloglnxcgs43%01/20/2025 1:51 PM ESTInhaled Oxygen Concentration--Wftgpn020 kg (310 lb)01/20/2025 1:51 PM EST Hitccw693.6 cm (5' 11.5 )01/20/2025 1:51 PM ESTBody Mass Index42.6301/20/2025 1:51 PM EST Plan of Treatment DateTypeDepartmentCare Team (Latest Contact Info)Pveogeyltxg09/13/2026 2:15 PM ESTOffice Visit [facility] [address] [place] [address] Trenton Redd PA [address] [place] [address] Health MaintenanceDue DateLast DoneCommentsDiabetes: Retinopathy Screening /1Diabetes: Urine Protein Zckdsnpwi36/07/10729702/20/2024, 11/01/2022, 12/07/2021, Additional history existsDiabetes: Hemoglobin A1C 6103/23/2024, 09/18/2024, 05/20/2024, Additional history exists Pneumococcal Vaccine: 65+ NimqvXpdltveuw48/08/2024, 12/02/2022, 07/29/2015, Additional history existsInfluenza QqtzcnsBtvqqqzwj70/20/2025, 11/21/2023, 11/01/2022, Additional history exists Procedures Procedure NamePriorityDate/TimeAssociated DiagnosisCommentsXR HIP 2 OR 3 VW LEFT Bbeubje8701/20/2025 3:00 PM EST Pain in left hip POCT GLYCATED HEMOGLOBIN, INRNWFyowzki59/08/2025 2:23 PM EST Type 2 diabetes mellitus with diabetic peripheral angiopathy without gangrene, without long-term current use of insulin (HCC) MICROALBUMIN / CREATININE URINE LLEJFDjuhoem25/07/2025 2:47 PM EST Encounter for wellness examination Type 2 diabetes mellitus with other specified complication, without long-term current use of insulin (HCC) COLOR FUNDUS PHOTOGRAPHY - OU - BOTH VPOIIbhznbl18/20/2021 12:00 PM EDT Type 2 diabetes mellitus without complications (HCC) Encounter for screening for eye and ear disorders from Last 3 Months or Most Recently Relevant to Health Maintenance Results * XR hip left 2 or 3 views (01/20/2025 3:00 PM EST)Anatomical RegionLaterality ModalityLower Extremities, HipLeftRadiographic ImagingSpecimen (Source) Anatomical Location / LateralityCollection Method / VolumeCollection Time Received Time01/20/2025 4:36 PM EST Impressions 01/20/2025 4:37 PM EST No acute osseous abnormality. Moderate to advanced degenerative changes of the left hip. ELECTRONICALLY SIGNED BY: Eugene De Los Santos DO Narrative 01/20/2025 4:37 PM EST EXAMINATION: XR HIP 2 OR 3 VW LEFT HISTORY: Left hip pain COMPARISONS: None available TECHNIQUE: Frontal view of the pelvis and frontal and lateral views of the hip. FINDINGS: No acute proximal femur fracture. ??No hip dislocation. Mild degenerative changes of the right hip and moderate to advanced degenerative changes of the left hip. Visualized bones of the pelvis are within normal limits. Degenerative changes of the lower lumbar spine. Soft tissues are within normal limits. Procedure Note Eugene De Los Santos DO - 01/20/2025 EXAMINATION: XR HIP 2 OR 3 VW LEFT HISTORY: Left hip pain COMPARISONS: None available TECHNIQUE: Frontal view of the pelvis and frontal and lateral views of thehip. FINDINGS: No acute proximal femur fracture. No hip dislocation. Mild degenerativechanges of the right hip and moderate to advanced degenerative changes ofthe left hip. Visualized bones of the pelvis are within normal limits.Degenerative changes of the lower lumbar spine. Soft tissues are withinnormal limits. IMPRESSION: No acute osseous abnormality. Moderate to advanced degenerative changes of the left hip. ELECTRONICALLY SIGNED BY: Eugene De Los Santos DO Authorizing ProviderResult TypeResult Concetta Richard NPIMG XR PROCEDURESFinal Result * (ABNORMAL) POCT Glycated hemoglobin, total (01/20/2025 2:23 PM EST)Component ValueRef RangeTest MethodAnalysis TimePerformed AtPathologist Signature Hemoglobin A1C6.4Specimen (Source)Anatomical Location / LateralityCollection Method / VolumeCollection TimeReceived YospFdzzqnfvk95/08/2025 2:23 PM EST Narrative Authorizing ProviderResult TypeResult Michael Castillo NPPOINT OF CARE TEST ENTER/EDIT ORDERABLESFinal Result * Microalbumin / creatinine, urine ratio (02/20/2024 2:47 PM EST)ComponentValue Ref RangeTest MethodAnalysis TimePerformed AtPathologist SignatureCREATININE, RANDOM YGTIE35937 - 320 mg/dLQUESTALBUMIN, URINE0.7See Note: mg/dLQUEST Comment: [...] specimen obtained by clean catch procedure / Dbvygha0802/20/2024 2:47 PM EST02/20/2024 2:47 PM EST Narrative Resulting Agency Comment Performing Organization Information ?Site ID: [id number] ?Name: [facility] ?Address: [facility] [employer] , [address] [place] [id number] ?Director: Curtis Lyons MD Authorizing ProviderResult TypeResult StatusSatim PABLO URINE ORDERABLES Final ResultPerforming OrganizationAddressCity/State/ZIP CodePhone Number QUEST * Color [employer] - OU - Both Eyes (12/02/2020 12:00 PM EDT)Anatomical RegionLateralityModalityHeadFundus PhotographySpecimen (Source)Anatomical Location / LateralityCollection Method / VolumeCollection TimeReceived Time 12/02/2020 12:00 PM EDT Narrative 12/02/2020 12:00 PM EDT PERFORMED AT [facility] LOCATION:[id number] [place] [address] Procedure Note CONVERSION, GENERIC - 06/29/2022 PERFORMED AT [facility] LOCATION:[address] [place] [address] Authorizing ProviderResult TypeResult StatusChristy Naty YAÑEZ PHOTOGRAPHYFinal Result from Last 3 Months or Most Recently Relevant to Health Maintenance Insurance Care Teams Team MemberRelationshipSpecialtyStart DateEnd Date Bernie Adam MD [address] [place] [address] PCP - GeneralFacoly Medicine08/01/22
--- OUTSIDE RECORDS SUMMARY | 2025-02-17 12:19 | XMS_ITS | Encounter Summary ---
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 Social History Tobacco UseTypesPacks/DayYears UsedDateSmoking Tobacco: NeverSmokeless Tobacco: NeverAlcohol UseStandard Drinks/WeekCommentsYes3 (1 standard drink = 0.6 [...] InformationValueDate RecordedSex Assigned at BirthNot on fileLegal PjaTvol0204/27/2022 7:26 PM EDTGender IdentityNot on fileSexual OrientationNot on filedocumented as of this encounter Plan of Treatment DateTypeDepartmentCare Team (Latest Contact Info)Sbwannnepeh09/13/2026 2:15 PM ESTOffice Visit [facility] [address] [place] [address] Trenton Redd PA [address] [place] [address] documented as of this encounter Visit Diagnoses Diagnosis 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
--- OUTSIDE RECORDS SUMMARY | 2025-02-17 12:19 | XMS_ITS | Clinical Summary ---
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 Name Role Phone Micheal Evangelistay Naty METAL MINER BLASTING - TRAFFIC CONTROL FLAGGER Primary Care P rovider Allergies No known active allergies Medications MedicationSigDispense QuantityRefillsLast FilledStart DateEnd DateStatus omeprazole (PRILOSEC) 20 MG delayed release capsule Take 1 capsule by mouth Daily01/21/2020Active allopurinol (ZYLOPRIM) 100 MG tablet Take 1 tablet by mouth dailyActive rOPINIRole (REQUIP) 0.25 MG tablet Take 1 tablet by mouth daily Take 1 1/2 daily09/11/2020ctive losartan-hydroCHLOROthiazide (HYZAAR) 50-12.5 MG per tablet Indications:Essential hypertensionTAKE 1 TABLET DAILY 90 tablet ctive amitriptyline (ELAVIL) 10 MG tablet Take 1 tablet by mouth nightlyActive amiodarone (CORDARONE) 200 MG tablet Take 1 tablet by mouth daily 90 tablet 5Active metoprolol tartrate (LOPRESSOR) 25 MG tablet Indications:AF (paroxysmal atrial fibrillation) (HCC),PAF (paroxysmal atrial fibrillation) (HCC),Paroxysmal atrial fibrillation (HCC),Chronic anticoagulation ,Shortness of breath,Essential hypertensionTake 1 tablet by mouth 2 times daily 180 tablet 5Active apixaban (ELIQUIS) 5 MG TABS tablet Indications:AF (paroxysmal atrial fibrillation) (HCC),PAF (paroxysmal atrial fibrillation) (HCC),Paroxysmal atrial fibrillation (HCC),Chronic anticoagulation ,Shortness of breath,Essential hypertensionTake 1 tablet by mouth 2 times daily 60 tablet 01/31/2025tive metoprolol tartrate (LOPRESSOR) 25 MG tablet Indications:AF (paroxysmal atrial fibrillation) (HCC),PAF (paroxysmal atrial fibrillation) (HCC),Paroxysmal atrial fibrillation (HCC),Chronic anticoagulation ,Shortness of breath,Essential hypertensionTake 1 tablet by mouth 2 times daily 180 tablet Discontinued apixaban (ELIQUIS) 5 MG TABS tablet Indications:AF (paroxysmal atrial fibrillation) (HCC),PAF (paroxysmal atrial fibrillation) (HCC),Paroxysmal atrial fibrillation (HCC),Chronic anticoagulation ,Shortness of breath,Essential hypertensionTake 1 tablet by mouth 2 times daily 180 tablet Discontinued(REORDER) Active Problems ProblemNoted DateDiagnosed DatePVD (peripheral vascular disease)08/30/2021Type 2 diabetes wgjroiry59/18/2022Persistent atrial qoxeshicxzeq11/26/2021Essential lkedzetwnsbh80/09/2020Other viral pxiwespeb04/04/2020Paroxysmal atrial uprutsxqivwa75/03/2020Pneumonia due to COVID-19 virus12/16/2019 Encounters DateTypeDepartmentCare PedpFfcdeajavic05/19/2025[facility] [address] [phone] Ce Mccormick Medication Dmzsvo0801/30/2025[facility] Part [address] [phone] Ej Foster MD New Med Requestfrom Last 3 Months Social History Tobacco UseTypesPacks/DayYears UsedDateSmoking Tobacco: NeverSmokeless Tobacco: Never Tobacco Cessation:Counseling Given: Not Answered Alcohol UseStandard Drinks/WeekCommentsYes6 (1 standard drink = 0.6 oz pure alcohol)occasionalSex and Gender InformationValueDate RecordedSex Assigned at BirthNot on fileLegal IqzUhlu71/28/2020 1:46 PM EDTGender IdentityNot on file Sexual OrientationNot on file Last Filed Vital Signs Vital SignReadingTime TakenCommentsBlood Icydixjr788/8504/02/2024 11:31 AM EDT Qgiqi4754 11:31 AM GQKZmzmzofsmly14 ??C (96.8 ??F)02/23/2024 12:11 PM ESTRespiratory Dbdk126407/11/2024 10:50 AM EDTOxygen Mviugkbpdk07%05/14/2024 11:31 AM EDTInhaled Oxygen Concentration--Wdctde542 kg (313 lb)07/11/2024 10:50 AM EDT Piwmfu499.9 cm (6')07/11/2024 10:50 AM EDTBody Mass Index42.45007/11/2024 10:50 AM EDT Plan of Treatment DateTypeDepartmentCare Team (Latest Contact Info)Lcwdeieaydu37/14/2026 10:40 AM ESTOffice Visit [facility] C[facility] Part of [address] [phone] Anel Salcedo, METAL MINER BLASTING - TRAFFIC CONTROL FLAGGER [address] [place] [phone] follow up and cardiac clearanceHealth MaintenanceDue DateLast DoneComments Depression Acjhbo551Diabetic Alb to Cr ratio (uACR) test1966 Hepatitis C gksknr6410/03/1966Shingles vaccine (2 of 3)07/17/201204/10/2012GFR test (Diabetes, CKD 3-4, OR last GFR 15-59), 03/10/2020, 01/22/2020Flu vaccine (#1), 11/01/2022, 11/01/2021, Additional history existsCOVID-19 Vaccine ( season)2024 11/21/2023, 12/05/2022, 11/01/2021, Additional history existsAnnual Wellness Visit (Medicare Advantage)/2DTaP/Tdap/Td vaccine (2 - Td or Tdap)10/16/308285/16/4516X4W test (Diabetic or Prediabetic)Discontinued 03/10/2020, 01/22/20205154ZemdhyBjmmcdyncgxg91/26/2021espiratory Syncytial Virus (RSV) or age 60 yrs+Mnbkzpogr20/23/2023Pneumococcal 50+ years Vaccine Coookcxcv81/08/2024, 12/02/2022, 07/29/2015, Additional history existsHepatitis A vaccineAged OutNo longer eligible based on patient's age to complete this topicHepatitis B vaccineAged OutNo longer eligible based on patient's age to complete this topicHib vaccineAged OutNo longer eligible based on patient's age to complete this topicMeningococcal (ACWY) vaccineAged OutNo longer eligible based on patient's age to complete this topicMeningococcal B vaccineAged OutNo longer eligible based on patient's age to complete this topicPolio vaccineAged OutNo longer eligible based on patient's age to complete this topic Procedures Procedure NamePriorityDate/TimeAssociated DiagnosisCommentsBASIC METABOLIC PANEL Sbqefiq1905/03/2022 12:37 PM EDT Essential hypertension Persistent atrial fibrillation (HCC) Chronic anticoagulation Obesity, Class III, BMI 40-49.9 (morbid obesity) (HCC) Mixed hyperlipidemia History of COVID-19 Type 2 diabetes mellitus with diabetic nephropathy, without long-term current use of insulin (HCC) LIPID WDAMXSfplnda96/26/2021 12:35 PM EST Persistent atrial fibrillation (HCC) SOB (shortness of breath) Essential hypertension Other specified diabetes mellitus with other specified complication, 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 (HCC) Class 2 obesity with body mass index (BMI) of 36.0 to 36.9 in adult, unspecified obesity type, unspecified whether serious comorbidity present COVID-19 Fluid retention Pain in both lower extremities HEMOGLOBIN B2CCnhjvvs70/26/2021 12:35 PM EST Controlled type 2 diabetes mellitus with hyperglycemia, without long-term current use of insulin (HCC) from Last 3 Months or Most Recently Relevant to Health Maintenance Results * (ABNORMAL) Basic Metabolic Panel (05/03/2022 12:37 PM EDT)ComponentValueRef RangeTest MethodAnalysis TimePerformed AtPathologist WkhcphuvjTpyvznc618(H)70 - 99 mg/dL05/03/2022 12:37 PM [facility] EXLWHT617 - 23 mg/dL05/03/2022 12:37 PM [facility] LABCreatinine0.780.70 - 1.20 mg/dL05/03/2022 12:37 PM [facility] LABEst, Glom Filt Rate>60>60 mL/min/1.37g07005/03/2022 12:37 PM [facility] LABComment: ? These results are not intended for use in patients <18 years of age. ? eGFR results are calculated without a race factor using the 2020 CKD-EPI equation. Careful clinical correlation is recommended, particularly when comparing to results calculated using previous equations. The CKD-EPI equation is less accurate in patients with extremes of muscle mass, extra-renal metabolism of creatine, excessive creatine ingestion, or following therapy that affects renal tubular secretion. BUN/Creatinine Ratio23(H) - 12:37 PM [facility] LABCalcium9.18.6 - 10.4 mg/dL05/03/2022 12:37 PM [facility] QVZRzmegs670860 - 144 mmol/L05/03/2022 12:37 PM [facility] LABPotassium3.93.7 - 5.3 mmol/L05/03/2022 12:37 PM [facility] EGJKqjitxvq00044 - 107 mmol/L05/03/2022 12:37 PM [facility] IPAYG98717 - 31 mmol/L05/03/2022 12:37 PM [facility] LABAnion Blx586 - 17 mmol/L05/03/2022 12:37 PM [facility] LABSpecimen (Source)Anatomical Location / LateralityCollection Method / VolumeCollection TimeReceived TimeBLOOD SPECIMEN / Bpkxuqm7605/03/2022 12:37 PM EDT05/03/2022 12:38 PM EDT Narrative Authorizing ProviderResult TypeResult StatusAli F O Ahmad MDCHEMISTRY ORDERABLES Final ResultPerforming OrganizationAddressCity/State/ZIP CodePhone Number [facility] [address] [place] [address], [facility] [phone] * Hemoglobin A1C (03/10/2020 12:35 PM EST)ComponentValueRef RangeTest Method Analysis TimePerformed AtPathologist SignatureHemoglobin A1C5.44.0 - 6.0 % 03/10/2020 12:35 PM ESTMERCY LABORATORIESEstimated Avg Hodshcl724wf/dL 03/10/2020 12:35 PM ESTMERCY LABORATORIESComment: The ADA and AACC recommend providing the estimated average glucose result to permit better patient understanding of their HBA1c result. Specimen (Source)Anatomical Location / LateralityCollection Method / Volume Collection TimeReceived TimeBLOOD SPECIMEN / Mxdvihx6003/10/2020 12:35 PM EST 03/10/2020 12:36 PM EST Narrative Authorizing ProviderResult TypeResult StatusAli F O Ahmad MDCHEMISTRY ORDERABLES Final ResultPerforming OrganizationAddressCity/State/ZIP CodePhone Number [facility] [address] [place] [address], [facility] [phone] [place] [address], [facility] [phone] * Lipid Panel (03/10/2020 12:35 PM EST)ComponentValueRef RangeTest Method Analysis TimePerformed AtPathologist UhzqtyfxmBungyleyrex072<200 mg/dL 03/10/2020 12:35 PM ESTMERCY LABORATORIESComment: Cholesterol Guidelines: <200 Desirable 200-240 ??Borderline >240 Undesirable HDL41>40 mg/dL03/10/2020 12:35 PM ESTMERCY [facility]ORATORIESComment: HDL Guidelines: <40 Undesirable 40-59 ?Borderline >59 Desirable LDL Efjwqdjzfdc2387 - 130 mg/dL03/10/2020 12:35 PM ESTMERCY LABORATORIESComment: LDL Guidelines: <100 Desirable 100-129 ?? Near to/above Desirable 130-159 ?? Borderline >159 Undesirable Direct (measured) LDL and calculated LDL are not interchangeable tests. Chol/HDL Ratio4.0<501 12:35 PM ESTMERCY LABORATORIESComment: Xcdfndijiwtgx28<150 mg/dL03/10/2020 12:35 PM ESTM[facility]ORATORIESComment: Triglyceride Guidelines: <150 Desirable 150-199 ??Borderline 200-499 ??High >499 Very high Based on AHA Guidelines for fasting triglyceride, November 2011. VLDLNOT REPORTED1 - 30 mg/dL03/10/2020 12:35 PM ESTMERCY LABORATORIESSpecimen (Source)Anatomical Location / LateralityCollection Method / VolumeCollection TimeReceived TimeBLOOD SPECIMEN / Xyifrrq3603/10/2020 12:35 PM EST03/10/2020 12:36 PM EST Narrative Authorizing ProviderResult TypeResult StatusAli F O Ahmad MDCHEMISTRY ORDERABLES Final ResultPerforming OrganizationAddressCity/State/ZIP CodePhone Number [facility] [address] [place] [address], [facility] [phone] [facility] [address] [place] [address], [facility] [phone] from Last 3 Months or Most Recently Relevant to Health Maintenance Insurance Advance Directives * Full Code (Latest Code Status on File) Date ActivatedDate ZzcapmahokvFmmhlhuz44/30/2020 7:58 AM02/12/2020 11:52 AM Care Teams Team MemberRelationshipSpecialtyStart DateEnd Date Jeannine Evangelista, METAL MINER BLASTING - TRAFFIC CONTROL FLAGGER [address] [place] [address] PCP - GeneralNurse Practitioner, Jolvki94/17/20
--- OUTSIDE RECORDS SUMMARY | 2025-02-17 13:59 | XMS_ITS | CCD ---
Author Organization [facility] Care Team Providers Care Belt Splicer Name Role Phone Unavailable Primary Care Provider Unavaileder e MISC, DOCTOR Primary Care Unavailable MATTEVI, ARMANDO Admitting Unavailable MATTEVI, ARMANDO Consulting Unavailable BIPIN ARMANDO Attending Unavailable Rupesh Ulrich Consulting Unavailable Jeannine Evangelista Primary Care Provider [phone] Tonja KIM - Jeannine CASH Primary Care P roluis manuel Bernie Adam MD Unavailable Bernie Adam MD Primary Care Provider EVANS Redd Attending Provider AWAIS Evangelista Primary Care Provider AWAIS Evangelista Primary Care Provider EVANS Redd Attending Provider [phone] Trenton Redd Attending Unavailable Trenton Redd Admitting Unavailable Jeannine Evangelista Primary Care Unavailable DAVID AWAD JR Attending UnavailDAVID Rahman JR Referring Unavailabl JEANNINE Gates Primary Care Unavailab DAVID Roman JR Attending UnavailDAVID Rahman JR Referring Unavailabl e JEANNINE EVANGELISTA Primary Care Unavailab Bernei Barrios MD Unavailable [phone] Tonja KIM - Jeannine CASH Primary Care [...] Attending Unavailable LIZZETH, ALLEY Referring Unavailable BRINK, OMNY Attending Unavailable LIZZETH, ALLEY Referring Unavailable KAMPFER, [...] tablet (20 sources)Xanthine Oxidase InhibitorStart: 03-12-2024 End: 09-69-2466htva 1 tablet by mouth in the morningallopurinol (Zyloprim) 100 MG tablet Indications: 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 TAKE 1 TABLET IN THE MORNING 90 tablet 1 09/15/2023 Activeamiodarone hydrochloride 200 mg oral tablet (20 sources)AntiarrhythmicStart: 83-02-9807dzfzbelewk (Pacerone) 200 MG tablet Oral for 30 Days 04/24/2024 ActiveStart: 84-46-1314ijnq 1 tablet by mouth once dailyamiodarone (CORDARONE) 200 MG tablet Take 1 tablet by mouth daily 30 tablet 1 02/23/2024 Activeamitriptyline hydrochloride 10 mg oral tablet (20 sources)Tricyclic AntidepressantStart: 07-18-2023 End: 34-80-2590amjt 1 tablet by mouth at bedtimeamitriptyline (Elavil) 10 MG tablet Indications: Insomnia, unspecified type , Lumbar radiculopathy Take 1 tablet (10 mg) by mouth at bedtime 90 tablet 07/09/2024 Activeamoxicillin 875 mg / clavulanate 125 mg oral tablet (11 sources)Penicillin-class AntibacterialStart: 05-20-2024 End: 77-51-2591jqbt 1 tablet by mouth in the morningamoxicillin-clavulanate (Augmentin) 875-125 MG tablet Indications: Non-recurrent acute suppurative o titis media of left ear without spontaneous rupture of tympanic membrane Take 1 tablet (875 mg) by mouth in the morning and 1 tablet (875 mg) before bedtime. Do all this for 7 days. 14 tablet 05/20/2024 05/27/2024 ActiveStart: 12-26-2023 End: 19-09-9489xqoe 1 tablet by mouth in the morningamoxicillin-clavulanate (Augmentin) 500-125 MG tablet Indications: Acute right otitis media Take 1 t ablet (500 mg) by mouth in the morning and 1 tablet (500 mg) before bedtime. Do all this for 10 days. 20 tablet 12/26/2023 01/05/2024 Expiredapixaban 5 mg oral tablet (20 sources)Factor Xa InhibitorStart: 04-04-2023 End: 11-19-9262wpex 1 tablet by mouth in the morningapixaban (Eliquis) 5 MG tablet Indications: Paroxysmal atrial fibrillation (HCC) Take 1 tablet (5 mg) by mouth in the morning and 1 tablet (5 mg) before bedtime. 180 tablet 1 07/09/2024 ActiveStart: 01-22-2020 End: 67-68-9504kptz 1 tablet by mouth twice dailyapixaban (ELIQUIS) 5 MG TABS tablet Take 1 tablet by mouth 2 times daily for 14 days 28 tablet 0 09/16/2020 09/30/2020 ActiveEliquis 5 MG tablet every 12 (twelve) hours. 0 Active atorvastatin 10 mg oral tablet (20 sources)HMG-CoA Reductase InhibitorStart: 12-13-2023 End: 74-71-7844xxau 1 tablet by mouth in the morningatorvastatin (Lipitor) 10 MG tablet Indications: Other hyperlipidemia Take 1 tablet (10 mg) by mouth in the morning. 90 tablet 3 07/09/2024 ActiveStart: 22-31-1178hwnpfucadqmz (Lipitor) 10 MG tablet Indications: Other hyperlipidemia (CMS/HCC) TAKE 1 TABLET IN THE MORNING 90 tablet 1 06/16/2023 ActiveStart: 46-28-8298ofcytviwlqeh (Lipitor) 10 MG tablet Indications: Other hyperlipidemia (CMS/HCC) TAKE 1 TABLET IN THE MORNING 90 tablet 0 12/26/2022 ActiveBioflavonoid Products (VITAMIN C PLUS PO) (20 sources)Bioflavonoid Products (VITAMIN C PLUS PO) Take by mouth Active clindamycin 300 mg oral capsule (2 sources)Lincosamide AntibacterialStart: 10-11-2023 End: 61-11-4223hafc 1 capsule by mouth in the morning, [...] for 10 days. 30 capsule 10/11/2023 10/21/2023 Yunghl64 hr dextromethorphan hydrobromide 30 mg / guaiFENesin 600 mg extended release oral tablet (1 source)Uncompetitive V-xdxksq-F-aspartate Receptor Antagonist, Sigma-1 AgonistStart: 05-23-2024 End: 11-32-2653kufm 1 tablet by mouth in the morning, then take 1 tablet by mouth every twelve hours at bedtimeDextromethorphan-guaiFENesin (Mucinex DM) 30- 600 MG tablet sustained-release 12 hour Indications: Acute cough Take 1 tablet by mouth in the morning and 1 tablet before bedtime. Do all this for 10 days. 28 tablet 05/23/2024 06/02/2024 Activefinasteride 5 mg oral tablet (12 sources)5-alpha Reductase InhibitorStart: 27-05-0372xica 1 tablet by mouth once dailyfinasteride (Proscar) 5 MG tablet Indications: Benign prostatic hyperplasia with lower urinary tract symptoms, symptom details unspecified Take 1 tablet (5 mg) by mouth Daily Do not crush, chew, or split. 90 tablet 1 09/18/2024 Activegabapentin 300 mg oral capsule (20 sources)Anti-epileptic AgentStart: 74-06-9542owwb 1 capsule by mouth in the morninggabapentin (Neurontin) 300 MG capsule Take 300 mg by mouth in the morning and 300 mg before bedtime. 01/31/2024 ActivehydroCHLOROthiazide 12.5 mg / losartan potassium 50 mg oral tablet (20 sources)Thiazide Diuretic, Angiotensin 2 Receptor BlockerStart: 09-25-2023 End: 41-68-3111zrmv 1 tablet by mouth in the morninglosartan-hydroCHLOROthiazide (Hyzaar) 50-12.5 MG tablet Indications: Primary hypertension Take 1 tablet by mouth in the morning. 90 tablet 1 07/09/2024 ActiveStart: 84-73-5352xtlp 1 tablet by mouth in the morninglosartan-hydroCHLOROthiazide (Hyzaar) 50-12.5 MG tablet Indications: Primary hypertension (CMS/HCC)Take 1 tablet by mouth in the morning. 90 tablet 0 07/28/2022 ActiveStart: 18-78-1603fbaciwew- hydroCHLOROthiazide (HYZAAR) 50-12.5 MG per tablet Indications: Essential hypertension TAKE 1 TABLET DAILY 90 tablet 3 01/26/2022 Active3 ml insulin glargine 100 unt/ml pen injector (2 sources)Insulin AnalogStart: 33-55-5494fmuaupi glargine (LANTUS;BASAGLAR) 100 UNIT/ML injection pen Inject 10 Units into the skin 2 times daily 0 12/29/2019 ActiveLactobacillus Rhamnosus, GG, (CULTURELLE PO) (6 sources)Lactobacillus Rhamnosus, GG, (CULTURELLE PO) Take by mouth 0 Active metFORMIN hydrochloride 500 mg oral tablet (20 sources)BiguanideStart: 11-20-2023 End: 73-34-5343wzyj 1 tablet by mouth in the morningmetFORMIN (Glucophage) 500 MG tablet Indications: Type 2 diabetes mellitus with diabetic peripheral angiopathy without gangrene (HCC) Take 1 tablet (500 mg) by mouth in the morning and 1 tablet (500 mg) in the evening. Take with meals. 180 tablet 1 07/09/2024 ActiveStart: 37-28-0355bczYDOHDC (Glucophage) 500 MG tablet Indications: Type 2 diabetes mellitus with diabetic peripheralangiopathy without gangrene (CMS/HCC) TAKE 1 TABLET IN THE MORNING AND 1 TABLET IN THE EVENING WITHMEALS 180 tablet 09/13/2023 Activemethocarbamol 500 mg oral tablet (12 sources)Muscle RelaxantStart: 26-75-9169lonx 1 tablet by mouth every eight hours as neededmethocarbamol (Robaxin) 500 MG tablet Take 500 mg by mouth every 8 (eight) hours if needed 09/11/2024 Activemetoprolol tartrate 50 mg oral tablet (20 sources)beta-Adrenergic BlockerStart: 07-09-2024 End: 18-44-2142bdys 1 tablet by mouth in the morningmetoprolol tartrate (Lopressor) 50 MG tablet Indications: Primary hypertension , Paroxysmal atrial f ibrillation (HCC) Take 1 tablet (50 mg) by mouth in the morning and 1 tablet (50 mg) before bedtime. 180 tablet 1 07/09/2024 ActiveStart: 96-69-3490yfod 1 tablet by mouth twice dailymetoprolol tartrate (LOPRESSOR) 25 MG tablet Take 1 tablet by mouth 2 times daily 30 tablet 02/23/2024 ActiveStart: 78-41-2663tsno 40-49.9 tablets by mouth twice dailymetoprolol tartrate [...] 90 tablet 3 02/05/2024 ActiveStart: 09-15-2023 End: 45-41-2697tqze 0.5 tablet by mouth in the morning, [...] 1 09/15/2023 02/20/2024 Discontinued (Med list cleanup)Start: 75-01-0816zldk 0.5 tablet by mouth twice dailymetoprolol tartrate [...] with other specified complication, unspecified whether intermediate teacher insulin use ([facility]) , Class 2 obesity with body mass index (BMI) of 36.0 to 36.9 in adult, unspecified obesity type, unspecified whether serious comorbidity present TAKE 1 TABLET BY MOUTH TWICE DAILY 180 tablet 3 01/22/2020 Active metoprolol tartrate (Lopressor) 25 MG tablet every 12 (twelve) hours. 0 Active omeprazole 20 mg delayed release oral capsule (20 sources)Proton Pump InhibitorStart: 06-10-2024 End: 18-36-8697jrnf 1 capsule by mouth before mealtimeomeprazole (PriLOSEC) [address] capsule Indications: Gastroesophageal reflux disease without esophagitis Take 1 capsule (20 mg) by mouth in the morning. Take before meals. Do not crush or chew. 90 capsule 1 07/09/2024 ActiveStart: 20-30-4356scugnmvtaw (PriLOSEC) [address] capsule Indications: Gastroesophageal reflux disease without esophagitis TAKE 1 CAPSULE EVERY MORNING BEFORE A MEAL 90 capsule 1 12/11/2023 Active polymyxin b 69179 unt/ml / trimethoprim 1 mg/ml ophthalmic solution (4 sources)Dihydrofolate Reductase Inhibitor Antibacterial, Polymyxin-class AntibacterialStart: 05-20-2024 End: 29-63-9328jwbleveyugzc-polymyxin b (Polytrim) ophthalmic solution Indications: Acute bacterial conjunctivitisof both eyes Administer 1 drop into affected eye(s) in the morning and 1 drop at noon and 1 drop inthe evening and 1 drop before bedtime. Do all this for 7 days. 10 mL 05/20/2024 05/27/2024 Active rOPINIRole 1 mg oral tablet (20 sources)Nonergot Dopamine AgonistStart: 35-73-5814wxwr 1.5 tablets by mouth at bedtimerOPINIRole (Requip) 1 MG tablet Indications: Restless Leg Syndrome Take 1.5 tablets (1.5 mg) by mouth at bedtime 135 tablet 1 07/09/2024 Active Start: 04-04-2023 End: 09-35-0514lngt 1 tablet by mouth at bedtimerOPINIRole (Requip) 1 MG tablet Indications: Restless legs syndrome Take 1 tablet (1 mg) by mouth at bedtime 90 tablet 1 01/31/2024 07/09/2024 Discontinued (Reorder)Start: 10-04-2022 End: 14-38-2124pswp 1 tablet by mouth at bedtimerOPINIRole (Requip) 1 MG tablet Indications: Restless legs syndrome Take 1 tablet (1 mg) by mouth at bedtime. 90 tablet 1 10/04/2022 04/02/2023 ActiveStart: 52-72-2698pmum 1 tablet by mouth once daily, then take 1 tablet by mouth once dailyrOPINIRole (REQUIP) 0.25 MG tablet Take 1 tablet by mouth daily Take 1 1/2 daily 09/11/2020 Active3 ml sodium chloride 9 mg/ml injection (3 sources)Start: 02-12-20200.9 % sodium chloride infusionStart: 02-12-2020 sodium chloride flush 0.9 % injection 10 mLtamsulosin hydrochloride 0.4 mg oral capsule (20 sources)alpha-Adrenergic BlockerStart: 03-12-2024 End: 20-13-0325ivih 1 capsule by mouth every twenty-four hours at bedtime tamsulosin (Flomax) 0.4 MG 24 hr capsule Indications: Benign prostatic hyperplasia with nocturia Take 1 capsule (0.4 mg) by mouth at bedtime 90 capsule 1 07/09/2024 ActiveStart: 80-38-2537vdasrxvgqu (Flomax) 0.4 MG 24 hr capsule Indications: Benign prostatic hyperplasia with nocturia TAKE 1 CAPSULE IN THE MORNING 90 capsule 1 09/15/2023 ActiveStart: 12-02-2022 End: 37-09-5211nace 1 capsule by mouth every twenty-four hours in the morning tamsulosin (Flomax) 0.4 MG 24 hr capsule Indications: Benign prostatic hyperplasia with nocturia Take 1 capsule (0.4 mg) by mouth in the morning. 90 capsule 1 12/02/2022 05/31/2023 ActiveTirzepatide-Weight Management (Zepbound) 2.5 MG/0.5ML solution auto-injector (18 sources)Start: 07-09-2024 End: 26-89-1322mpcwdy 2.5 mg by subcutaneous injection every weekTirzepatide- [...] oral tablet (5 sources)Central alpha-2 Adrenergic AgonistStart: 93-67-1094ivfr 1 tablet by mouth every eight hours [...] oral tablet (20 sources)Opioid AgonistStart: 06-28-2023 End: 24-66-7746vstx 1 tablet by mouth twice daily as neededHYDROcodone- acetaminophen ([place]) 5-325 MG tablet Take 1 tablet by mouth 2 (two) times a day as needed 06/28/2023 02/20/2024 Discontinued (Therapy completed)[id number] 200 actuat albuterol 0.09 mg/actuat metered dose inhaler (12 sources)beta2-Adrenergic AgonistStart: 12-26-2023 End: 73-95-4771qfdr 2 puff(s) by inhalation every four hours for wheezing albuterol HFA 90 mcg/act inhaler Indications: Bronchitis Inhale 2 puffs every 4 (four) hours if needed for wheezing 18 g 12/26/2023 02/20/2024 Discontinued baclofen 10 mg oral tablet (19 sources)gamma-Aminobutyric Acid-ergic AgonistStart: 10-04-2023 End: 06-16-2518pygz 1 tablet by mouth in the morning, then take 1 tablet by mouth in the evening, then take 1 tablet by mouth at bedtimebaclofen (Lioresal) 10 MG tablet Take 10 mg by mouth in the morning and 10 mg in the evening and 10 mg before bedtime. 10/04/2023 02/20/2024 Discontinued (Therapy completed) benzonatate 100 mg oral capsule (5 sources)Non-narcotic AntitussiveStart: 12-28-2023 End: 99-33-8928nprc 1 capsule by mouth three times daily as needed for cough benzonatate (Tessalon Perles) 100 MG capsule Indications: Bronchitis Take 1 capsule (100 mg) by mouth 3 (three) times a day as needed for cough for up to 7 days Do not crush or chew. 20 capsule 12/29/2023 01/05/2024 cyclobenzaprine hydrochloride 10 mg oral tablet (19 sources)Muscle RelaxantStart: 09-20-2023 End: 53-05-0447qdxu 1 tablet by mouth three times daily as neededcyclobenzaprine (Flexeril) 10 MG tablet Take 10 mg by mouth 3 (three) times a day as needed 09/20/2023 02/20/2024 Discontinued (Therapy completed)digoxin 0.125 mg oral tablet (3 sources)Cardiac GlycosideStart: 01-22-2020 End: 54-74-2575mzgq 36-36.9 tablets by mouth once dailydigoxin (LANOXIN) 125 MCG tablet Indications: Persistent atrial fibrillation (HCC) , SOB (shortnessof breath) , Fluid retention , Essential hypertension , Other specified diabetes mellitus with other specified complication, unspecified whether senior care insulin use (HCC) , Class 2 obesity with body mass index (BMI) of 36.0 to 36.9 in adult, unspecified obesity type, unspecified whether serious comorbidity present Take 1 tablet by mouth daily 90 tablet 3 01/22/2020 02/12/2020 Discontinued (StopTaking at Discharge)2 ml fentaNYL 0.05 mg/ml injection (1 source)Opioid AgonistStart: 02-12-2020 End: 52-72-4512shuecPRN (SUBLIMAZE) rhaxhfnqe35 hr guaiFENesin 600 mg extended release oral tablet (6 sources)Start: 01-01-2024 End: 64-63-0839kcck 2 tablets by mouth in the morning, [...] pen injector (3 sources)Insulin AnalogStart: 12-29-2019 End: 73-52-4373rhdqptj lispro, 1 Unit Dial, 100 UNIT/ML SOPN Inject 2-10 Units into the skin 0 12/29/2019 02/12/2020 Discontinued (LIST CLEANUP)losartan potassium 25 mg oral tablet (1 source)Angiotensin 2 Receptor BlockerStart: 01-30-2020 End: 16-40-0532lujb 0.5 tablet by mouth once dailylosartan (COZAAR) 25 MG tablet Take 0.5 tablets by mouth daily 45 tablet 1 01/30/2020 02/12/2020 Discontinued (LIST CLEANUP)2 ml midazolam 1 mg/ml injection (2 sources)BenzodiazepineStart: 02-12-2020 End: 63-65-8166xgsiushaw (VERSED) injectionpredniSONE 10 mg oral tablet (3 sources)Start: 12-29-2023 End: 64-32-2718zhuu 1 tablet by mouth in the morningpredniSONE (Deltasone) 10 MG tablet Indications: Acute cough Take 1 tablet (10 mg) by mouth in the morning and 1 tablet (10 mg) before bedtime. Do all this for 5 days. 10 tablet 12/29/2023 12/29/2023iscontinued Problems Active Problems Problem ClassificationProblemDateDocumented DateEpisodic/ChronicCardiac dysrhythmias (20 sources)Unspecified atrial fibrillation; Translations: [Persistent atrial fibrillation]Onset: 128069-60-8829ZnkchklDhdxjrk obstructive pulmonary disease and bronchiectasis (6 sources)Bronchitis; Translations: [Bronchitis, not specified as acute or chronic]33-42-2135MtgbsdgnIqeyoywf mellitus with complications (12 sources)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 diabetes mellitus; Translations: [Type 2 diabetes mellitus with diabetic nephropathy]Onset: 899889-20-1361Ywamrco Diabetes mellitus without complication (20 sources)Diabetes mellitus; Translations: [Type 2 diabetes mellitus well controlled]Onset: 60-97-9386DbcnjwzOulqdsibt of lipid metabolism (20 sources)Hyperlipidemia; Translations: [Hyperlipidemia, unspecified]Onset: 12-12-2018 Resolved: 090061-53-5681DxobhloRjskefcjcw disorders (20 sources)Gastroesophageal reflux disease without esophagitis; Translations: [Gastro-esophageal reflux disease without esophagitis]Onset: 07-18-2022 12-71-0819WibfftuBnoxplhyl hypertension (20 sources)Essential hypertension; Translations: [Essential (primary) hypertension]Onset: 046772-70-8194DtfpdxyRarslhhw of neck of femur (hip) (1 source)Stress fracture, left femur, initial encounter for fracture; Translations: [Stress fracture, left femur, initial encounter for fracture] Onset: 61-39-5445PsuylsloMtqy and other crystal arthropathies (20 sources)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; Translations: [Idiopathic chronic gout, left ankle and foot, without tophus (tophi)]Onset: 243395-27-0766DuettpqCdfqahswkpz of prostate (6 sources)Benign prostatic hyperplasia; Translations: [Benign prostatic hyperplasia with lower urinary tract symptoms]73-36-9440HjpzcwpFtfogxmrzipl; infection of eye (except that caused by tuberculosis or sexually transmitteddisease) (2 sources)Acute infectious conjunctivitis; Translations: [Unspecified acute conjunctivitis, bilateral]92-28-2189JdbzfycnGnzqpmurifj deficiencies (20 sources)Vitamin D deficiency; Translations: [Vitamin D deficiency, unspecified]Onset: 238011-10-4845KadkmpnOqlgrlyzroigyr (20 sources)Bilateral osteoarthritis of knees; Translations: [Bilateral primary osteoarthritis of knee]Onset: 165207-76-3186DkzmiyiCnwrn aftercare (2 sources)Long-term current use of anticoagulant; Translations: [intermediate manager (current) use of anticoagulants]84-77-5956SxynkydaRynge aftercare (1 source)MCC (current) use of anticoagulants; Translations: [MCC (current) use of anticoagulants]Onset: 19-85-8553UrjtvfzrPbsqi connective tissue disease (20 sources)Artificial knee joint present; Translations: [Presence of unspecified artificial knee joint]Onset: 132634-44-3479AnwhrngCnyft connective tissue disease (20 sources)History of total knee arthroplasty; Translations: [Presence of left artificial knee joint]Onset: 399696-99-5317MjffpeyHdxuk connective tissue disease (1 source)Pain in bilateral legs; Translations: [Pain in right leg]EpisodicOther connective tissue disease (7 sources)Pain of left thigh; Translations: [Pain in left thigh]03-23-2023 EpisodicOther connective tissue disease (4 sources)Pain in toe; Translations: [Pain in right toe(s)]50-79-0963Dujhrxko Other connective tissue disease (8 sources)Other symptoms and signs involving the musculoskeletal system; Translations: [Other musculoskeletalsymptoms referable to limbs]08-30-2024 EpisodicOther connective tissue disease (2 sources)Pain in bilateral legs; Translations: [Pain in both lower extremities]Other diseases of kidney and ureters (1 source)Abnormal renal function; Translations: [Disorder of kidney and ureter, unspecified]89-67-4655GgyxukwxZjaus hereditary and degenerative nervous system conditions (20 sources)Restless legs; Translations: [Restless legs syndrome]Onset: 282315-53-7317GpyshcsPcgjj infections; including parasitic (20 sources)Post-viral disorder; Translations: [Qkuj-ZHOJC-05 condition]Onset: 123037-93-7830BabldtbNkqrc infections; including parasitic (2 sources)Personal history of other infectious and parasitic diseases; Translations: [History of COVID-19]74-51-6214IbksbnbpZqgpk inflammatory condition of skin (20 sources)Psoriasis; Translations: [Psoriasis, unspecified]Onset: 06-26-2017 41-70-6278FdynwvuNwaym lower respiratory disease (3 sources)Shortness of breath; Translations: [SHORTNESS OF BREATH]Onset: 67-81-2093TpcijvsyMpnxd lower respiratory disease (4 sources)Dyspnea; Translations: [Shortness of breath]EpisodicOther lower respiratory disease (2 sources)Cough; Translations: [Acute cough]28-01-8758EjenpxryRrtln nervous system disorders (20 sources)Difficulty walking; Translations: [Difficulty in walking, not elsewhere classified]Onset: 954309-68-2301DsnbqprReyud nutritional; endocrine; and metabolic disorders (4 sources)Obesity; Translations: [Obesity, unspecified]ChronicOther nutritional; endocrine; and metabolic disorders (20 sources)Body mass index 40+ - severely obese; Translations: [Morbid (severe) obesity due to excess calories]Onset: 176092-43-7273FyaizqrBwqii nutritional; endocrine; and metabolic disorders (4 sources)Obesity caused by energy imbalance; Translations: [Morbid (severe) obesity due to excess calories]23-06-7730OqkexjtPvywd nutritional; endocrine; and metabolic disorders (1 source)Morbid (severe) obesity due to excess calories; Translations: [Morbid (severe) obesity due to excess calories]Onset: 41-02-9148AmhkhakNuejf screening for suspected conditions (not mental disorders or infectious disease) (2 sources)Patient encounter status; Translations: [Encounter for screening for malignant neoplasm of prostate]21-90-8728HkublcccSemkl skin disorders (2 sources)Dystrophia unguium; Translations: [Nail dystrophy]84-46-5939Oimxlttm Otitis media and related conditions (4 sources)Acute right otitis media; Translations: [Otitis media, unspecified, right ear]29-36-7745XqkmcajqVrrpmplixs and visceral atherosclerosis (20 sources)Peripheral vascular disease; Translations: [Peripheral vascular disease, unspecified]Onset: 405198-29-2183NzgchcsVfjqktns codes; unclassified (6 sources)Obstructive sleep apnea syndrome; Translations: [Obstructive sleep apnea (adult) (pediatric)]39-15-6724LdfwuijKuovbqle codes; unclassified (3 sources)Body fluid retention; Translations: [Fluid retention]EpisodicResidual codes; unclassified (4 sources)Insomnia; Translations: [Insomnia, unspecified]77-16-8424Ndqaupke Residual codes; unclassified (2 sources)Colon cancer screening declined; Translations: [Procedure and treatment not carried out because of patient's decision for unspecified reasons] 52-54-5424QnlcbokzOcsuwcfw codes; unclassified (4 sources)Localized edema; Translations: [Localized edema]56-77-1598Ejbzvudf Spondylosis; intervertebral disc disorders; other back problems (20 sources)Acute low back pain; Translations: [Acute left-sided low back pain without sciatica]Onset: 036468-76-1475SmgnpgrjUesoolz and strains (1 source)Strain of muscle of left thigh; Translations: [Strain of unspecified muscles, fascia and tendons atthigh level, left thigh, subsequent encounter] 52-05-3904JglzctcsVqwijzzvwyxb (1 source)COVID-19; Translations: [COVID-19]Onset: 86-67-5618Wvdigilzpvxc (1 source)Permanent atrial fibrillation; Translations: [Permanent atrial fibrillation]Onset: 86-81-1241Appcmxkikwxb (1 source)Personal history of COVID-19; Translations: [Personal history of COVID-19]Onset: 02-05-2024 Past or Other Problems Problem ClassificationProblemDateDocumented DateEpisodic/ChronicDiabetes mellitus without complication (20 sources)Impaired fasting glycemia; Translations: [Impaired fasting glucose] Onset: 322020-62-9137PselqbhhBsfahiemm of teeth and jaw (2 sources)Dental abscess; Translations: [Periapical abscess without sinus] 41-30-1580PpcvbajzMrfhrzq (20 sources)Tinea pedis; Translations: [Tinea pedis]Onset: EpisodicOther acquired deformities (20 sources)Acquired unequal leg length; Translations: [Unequal limb length (acquired), unspecified site]Onset: 506355-14-2215ElgvbbzgWfdvv SOLUTION DIRECTOR infection and poliomyelitis (20 sources)H/O: poliomyelitis; Translations: [Personal history of poliomyelitis]Onset: 102807-40-6405TaomrzrpAoetr connective tissue disease (20 sources)Muscle weakness of limb; Translations: [Other symptoms and signs involving the musculoskeletal system]Onset: 804800-98-3977BoojdkqyDeprb nervous system disorders (20 sources)Numbness; Translations: [Anesthesia of skin]Onset: 06-16-2023 92-62-1580CfefsnrrGxqof nervous system disorders (20 sources)Paresthesia; Translations: [Paresthesia of skin]Onset: 06-16-2023 29-27-0050VsgoteoyPhtzv non-traumatic joint disorders (20 sources)Hip pain; Translations: [Pain in left hip]Onset: 10-25-2022 48-25-0635FhyxxswfRpmpp upper respiratory disease (20 sources)Pain in face; Translations: [Other specified disorders of nose and nasal sinuses]Onset: 12-12-2018 Resolved: 540616-89-5195IyfrrjcuOdbvplhia (except that caused by tuberculosis or sexually transmitted disease) (20 sources)Other viral pneumonia; Translations: [Viral pneumonia]Onset: 12-16-2019 Resolved: 163998-97-5483SmxhpmzeOfhaalhg codes; unclassified (20 sources)Peripheral edema; Translations: [Edema, unspecified]Onset: 251264-60-0260XhcedhwwTyuac infection (20 sources)Other specified viral infection; Translations: [COVID-19]Onset: 12-16-2019 Resolved: 690546-04-8172Hrbbxsmx Results Test NameValueInterpretationReference RangeFacilityLaboratory - Hematology and Cell countson 09-12-6842XnE7r (Bld) [Mass fraction]6.4 %[facility] Panel Informationon 53-06-9511Ctekbvzsvcdwaz and review of laboratory resultsNormal [facility] US LOWER EXTREMITY VENOUS DUPLEX BILATERALon 26-07-1890UJHT US LOWER EXTREMITY VENOUS DUPLEX BILATERALEXAM: [facility] US LOWER EXTREMITY VENOUS DUPLEX BILATERAL [...] II, MD, PHD at 10-Jul-2024 09:19:12 AM [facility] TeleradiologyNormalNot AvailableXR CHEST 2 VIEWSon 99-05-1097EH CHEST 2 VIEWSExam: XR CHEST 2 VIEWS [...] radiologist.NormalNot AvailableLaboratory - Hematology and Cell countson 82-87-6950WzK3r (Bld) [Mass fraction]6.3 %[facility] Panel Informationon 25-00-7864Mfrbzuecqdyhru and review of laboratory resultsAbNovant Health Brunswick Medical CenterEK 12 LeadOrdered By: Arianna Mascorro on 25-59-6552C-T Tqohvwom270 [facility] [employer] Work Phone: qRS Lrmxmqaa[address] [facility] Work Phone: QTc Calculation (Bazett)451 msBon Secours [facility] Work Phone: R [place]-23degreesBon [facility] Work Phone: T Otuh12vxaucgyHqe [facility]Wal[facility] Work Phone: Ventricular Yxxc04UYZXlr [facility] Work Phone: Bon [facility] Work Phone: EKG 12 Leadon 36-60-3811Tvhehg fibrillation Abnormal ECG ECG not diagnostic for Acute Coronary Syndrome; consider clinical findings When compared with ECG of 12-FEB-2020 08:26, Atrial fibrillation has replaced Sinus rhythm Confirmed by ARIANNA MASCORRO ([id number]) on 02/23/2024 10:09:04 [facility] Arianna Mascorro MD - 02/23/2024 Atrial fibrillation Abnormal ECG ECG not diagnostic for Acute Coronary Syndrome; consider clinical findings When compared with ECG of 12-FEB-2020 08:26, Atrial fibrillation has replaced Sinus rhythm Confirmed by ARIANNA MASCORRO ([id number]) on 02/23/2024 10:09:04 PM [facility] HealthAtrial Qiut277VHMRdx Secours Mercy HealthQ-T Pdzlhtby102 msBon Secours Mercy HealthQRS Smifpwwm56 msBon Secours Mercy HealthQTc Calculation (Bazett)471 msBon Secours Mercy HealthR [place]-23degreesBon Secours Mercy HealthT [place]-19degreesBon Secours Mercy HealthVentricular Efgv93QXRYfh [facility]ours Mercy HealthNormal sinus rhythm with a short run of atrial tachycardia Nonspecific T wave abnormality Prolonged QT Abnormal ECG When compared with ECG of 23-FEB-2024 11:06, (unconfirmed) normal sinus rhythm with a short run of atrial tachycardia has replaced atrial fibrillation Nonspecific T wave abnormality now evident in Anterior leads Confirmed by ARIANNA MASCORRO ([id number]) on 02/23/2024 9:25:47 [facility] Arianna Mascorro MD - [...] [facility] HealthBon Secours Mercy HealthAtrial Ggvl21BFUKhq Secours Mercy HealthP Ynss09hjdoufqBqd Secours Mercy HealthP-R Kimvlohg977 msBon Secours Mercy HealthQ-T Spiimxvk115 msBon Secours Mercy HealthQRS Kryimakg15 msBon Secours Mercy HealthQTc Calculation (Eliana)426 msBon Secours Mercy HealthR [place] -25degreesBon Secours Mercy HealthT Qknm6wnypwcqMzy [facility] Ventricular Ooze27HOYBxg [facility] HealthSinus bradycardia Otherwise normal ECG When compared with ECG of 23-FEB-2024 12:06, (unconfirmed) Previous ECG has undetermined rhythm, needs review Confirmed by ARIANNA MASCORRO ([id number]) on 02/23/2024 9:11:49 [facility] Arianna Mascorro MD - 02/23/2024 Sinus bradycardia Otherwise normal ECG When compared with ECG of 23-FEB-2024 12:06, (unconfirmed) Previous ECG has undetermined rhythm, needs review Confirmed by ARIANNA MASCORRO ([id number]) on 02/23/2024 9:11:[address] [facility] SecMultiCare Good Samaritan HospitalPurchext HealthInova Mount Vernon HospitalNetScaler [facility] Port[facility] Medical CenterPurchext Ncpqma47-hrwqsfisxjeuis D3 [Mass/Vol] on 916065-gszvglafnchbrm D [Mass/Vol]36 ng/mL30 - 100 ng/mLNSSM Rehab Comment on above:Vitamin D Status 25-OH Vitamin D: Deficiency: <20 ng/mL Insufficiency: 20 - 29 ng/mL Optimal: > or = 30 ng/mL For 25-OH Vitamin D testing on patients on D2-supplementation and patients for whom quantitation of D2 and D3 fractions is required, the QuestAssureD() 25-OH VIT D, (D2,D3), LC/MS/MS is recommended: order code 91620 (patients >2yrs). See Note 1 Note 1 For additional information, please refer to http://education.iCook.tw.Apse/faq/SEW572 (This link is being provided for informational/ educational purposes only.) Laboratory - Chemistry and Chemistry - challengeon 22-21-9625Adyqsss [Mass/Vol] 4.1 g/dL3.6 - 5.1 g/dLNOMS HealthcareAlbumin/Globulin [...] (S/P/Bld) [Vol rate/Area]90 mL/min/{1.73_m2}> OR = 60 mL/min/1.65k6SVSL HealthcareGlobulin (S) [Mass/Vol]1.9 g/dLNOMS HealthcareGlucose [Mass/Vol]139 mg/cXRjzi79 - 99 mg/dLNOWV HealthcareComment on above: Fasting reference interval For someone without known diabetes, a glucose value >125 mg/dL indicates that they may have diabetes and this should be confirmed with a follow-up test. Potassium [Moles/Vol]4 mmol/L3.5 - 5.3 mmol/LNOMS HealthcareProstate specific Ag [Mass/Vol]0.33 ng/mL< OR = 4.00NOWV HealthcareComment on above:The total PSA value from [...] mg/dL Urea nitrogen [Mass/Vol]17 mg/dL7 - 25 mg/dLNOWV HealthcareUrea nitrogen/Creatinine [Mass ratio]SEE NOTE:[facility] HealthcareComment on above:Not Reported: BUN and Creatinine are within reference range. Laboratory - Hematology and Cell countson 93-65-6753ZvO3r (Bld) [Mass fraction] 6.3 %HighNINFNOWV HealthcareComment on above:For someone without known diabetes, [...] of diabetes for children. Lipid 1996 panelon 57-99-3723Rkofgoazjtt [Mass/Vol]121 mg/dLNINF - 200 mg/dLNOWV HealthcareCholesterol in HDL [Mass/Vol]40 mg/dL> OR = 40NOPike County [facility] Hospital Cholesterol in LDL [Mass/Vol]53 mg/dLmg/dL (calc)[facility] HealthcareComment on above:Reference range: <100 Desirable range <100 mg/dL for primary prevention; <70 mg/dL for patients with CHD or diabetic patients with > or = 2 CHD risk factors. LDL-C is now calculated using the -Winifred calculation, which is a validated novel method providing better accuracy than the Friedewald equation in the estimation of LDL-C. SS et al. TANA. 2013;310(19): 9041-3619 (http://education.iCook.tw.Apse/faq/KQG542) Cholesterol non HDL [Mass/Vol]81 mg/dLNILivingston Regional HospitalComment on above:For patients with diabetes plus 1 major ASCVD risk factor, treating to a non-HDL-C goal of <100 mg/dL (LDL-C of <70 mg/dL) is considered a therapeutic option. Cholesterol.total/Cholesterol in HDL [Mass ratio]3 {ratio}[facility] Interpretation and review of laboratory resultsAbCorewell Health Big Rapids Hospital Triglyceride [Mass/Vol]224 mg/dLHighNINF - 150 mg/dLHermann Area District HospitalComment on above: If a non-fasting specimen was collected, consider repeat triglyceride testing on a fasting specimen if clinically indicated. Chantell et al. J. of Clin. Lipidol. 2015;9:129-169. Performing Organization Information Site ID: QPT Name: [facility] [employer] [facility] Address: [address] [place] [address], [address] [place], [place] [id number] Director: Curtis Lyons [facility]/NHRMCroalbumin/Creatinine ratio panel (U)on 48-59-6393Vpxljbf DL <= 20 mg/L (U) [Mass/Vol]0.7 mg/dLSee Note:[facility] HealthcareComment on above:Reference Range: Reference Range Not established Albumin/Creatinine (U) [Mass ratio]5NINFGUNNISON VALLEY HOSPITAL HealthcareComment on above: The ADA defines abnormalities [...] category. Creatinine (U) [Mass/Vol]154 mg/dL20 - 320 mg/dLHermann Area District HospitalPerforming Organization Information Site ID: QPT Name: [employer] [facility] Address: [address] [place] [address], [address] [place] [phone] Director: Curtis Lyons [facility] HealthNo Panel Informationon 01-81-1943Mwjolhpasferfi and review of laboratory resultsAbCorewell Health Big Rapids Hospital PATIENT UNABLE TO VOID; ADVISED TO RETURN FOR COLLECTION.[facility] Organization Information Site ID: QPT Name: [facility] Address: Jael Gil , [address] [place] [phone] Director: Curtis Lyons Randolph HealthCardiac echo study ProcedureOrdered By: Arianna Mascorro on 68-56-4142Jh Root Index0.86 cm/m2Bon [employer] Work Phone: [phone] Root2.2 cmBon Sec51edj Work Phone: [phone] Sinus Valsalva3.3 cmBon [facility]ed[facility] Work Phone: [phone] Sinus Valsalva Index1.29 cm/m2Bon [facility] Work Phone: [phone] Aorta3.5 cmBon [facility] Work Phone: [phone] Aorta Index1.37 cm/m2Bon [employer] Work Phone: [phone] Cusp Mmode1.8 cmBon [facility] Work Phone: [phone] Mean Ulrquldo5kxUjKdk [facility] Work Phone: [phone] Mean Velocity0.8 m/sBon [facility] Work Phone: [phone] Peak Acwrsqty9ptFzRzx Sec[facility] Work Phone: AV Peak Velocity1.2 m/sBon [facility] Work Phone: AV Velocity Ratio0.75Bon [facility] Work Phone: [phone] VTI18.4 cmBon [facility] Work Phone: Body surface area Derived from formula2.67 m2Bon [facility] Work Phone: E/E' Lateral4.69Bon [facility] Work Phone: EF BP55 %55 - 100 %Bon [facility] Work Phone: Est. RA Bpsxlhgb2hkKiFpq SecNetScal[facility] Work Phone: Fractional Shortening 2D28 %28 - 44 %[facility] Work Phone: Interpretation and review of laboratory results AbnormalBon [facility] Work Phone: IVSd1.3 cmAbnormal0.6 - 1.[address] [facility] Work Phone: LA Area 2C26.6 cm2Bon [facility] Work Phone: LA Area 4C25.0 cm2Bon [facility] Work Phone: LA Major Axis7.[address] [facility] Work Phone: LA Minor Axis6.9 cmBon [employer] Work Phone: LA Volume BP78 yVBscoyiui87 - [address] [facility] Work Phone: LA Volume Index BP30 ml/m216 - 34 ml/m2Bon [employer] Work Phone: [phone] Volume Index MOD A2C33 ml/m216 - 34 ml/m2[facility] Work Phone: LA Volume Index MOD A4C27 ml/m216 - 34 ml/m2Bon [employer] Work Phone: LA Volume MOD A2C84 xVGshxltfb67 - [address] [facility] Work Phone: LA Volume MOD A4C69 zAWxtgefqr14 - [address] [facility] Work Phone: LV E' Lateral Xhexjrqj81.30 cm/sBon [facility]51edj Work Phone: LV EDV A2C[address] [facility] Work Phone: LV EDV X6X[address] [facility] Work Phone: LV EDV Index A2C29 mL/m2Bon [employer] Work Phone: LV EDV Index A4C40 mL/m2Bon [facility] Work Phone: LV Ejection Fraction A2C57 %[facility] Work Phone: LV Ejection Fraction A4C52 %[facility] Work Phone: LV ESV A2C32 mLBon [employer] Work Phone: LV ESV A4C49 mLBon [employer] Work Phone: LV ESV Index A2C13 mL/m2Bon [employer] Work Phone: LV ESV Index A4C19 mL/m2Bon [employer] Work Phone: LV Mass 2D279.8 vUameeqgc92 - 224 gBon [employer] Work Phone: LV Mass 2D Mezcm352.3 g/m249 - 115 g/m2Bon [facility] Work Phone: LV RWT Ratio0.44[facility] Work Phone: [phone] cm4.2 - 5.9 cmBon [employer] Work Phone: LVIDd Index2.11 cm/m2Bon [facility] Work Phone: ULQOv6.9 cmBon [employer] Work Phone: LVIDs Index1.52 cm/m2Bon [facility] Work Phone: LVOT Mean Exrgrmdo8wuKeHcz [facility] Work Phone: LVOT Peak Qkoxfmnt5gvAvWzm [facility] Work Phone: LVOT Peak Velocity0.9 m/sBon [employer] Work Phone: LVOT VTI14.4 cmBon [employer] Work Phone: LVOT:AV VTI Index0.78Bon [employer] Work Phone: PVNIi1.2 cmAbnormal0.6 - 1.0 cmBon [employer] Phone: [phone] E Velocity0.53 m/sBon [facility] [facility] [employer] [facility] Phone: MV E Wave Deceleration Ejbk777.0 msBon [facility] Phone: PV Max Velocity1.0 m/sBon [facility] Phone: PV Peak Hcuypmxl4moWsIih [facility] Phone: [phone] [facility] Phone: Sinotubular Junction2.3 cmBon [employer] [facility] [employer] [facility] Phone: TR Max Velocity2.17 m/sBon [employer] Phone: TR Peak Dsetwgcn78ahEjOwjMerryMarry Phone: Bon [employer] Phone: Cardiac echo study Procedureon 41-46-4214Sblw Ventricle: Low normal left ventricular systolic function [...] Details Image quality: adequate. No contrast was given.[facility] CPACSRadiology Study observation (narrative)[facility] Summaryon 03-59-9940Tcdcry SummaryST. MARK'S HOSPITALBase 64 KggjhmkhZBq9uXq+PGhlYWQ+JO9VHTZvG74ntFYhkS0GL5qZFK9MNGMFDTJRPU8QAP4xoFB3WXemZ0Wq biAv [file] IGN (more content not included)...[facility] HospitalCoding Summaryon 14-14-8374Rqerus SummaryHTMLBase 64 EdgcuuurPFr4kZi+PGhlYWQ+HH9HRZSiH37noSQafP2OY0zQRR6NGYSOICMGAD1PWB3tsHL3SDjaN9Ot biAv [file] Y29 (more content not included)...[facility] Hospitalsent Formson 11-65-0236Gsogimi [id number]#1.00OTGTIFF Wayne HospitalConsent Formson 68-33-8004Twjdfna Forms [id number]#1.00OTGTIFFNoMer[address] Health St[address] Joseph Warren HospitalGR Postoperative Recordon 80-64-5625TWMI Postoperative RecordMAGR Phase II Record Summary Primary Physician: DAVID AWAD DO Finalized Date/Time: 09/20/21 10:05:40 Pt. Name: ZAINA WINTERS /Sex: 1950 MALE Med Rec #: [id number] Physician: DAVID AWAD DO Financial #: [id number] Pt. Type: O Room/Bed: 229/1 Admit/Disch: 09/17/21 [...] Signatures Signed By: Vianca Celaya RN 09/20/21 10:05Wayne HospitalOutside Recordson 09-20-2021 Outside [id number]#1.00OTPremier Health Atrium Medical CenterProvider Orderson 14-87-5225Ekczhtza Orders [id number]#1.00[facility] Provider [id number]#1.00OTPremier Health Atrium Medical CenterTelemetry Stripson 20-95-5790Ofzjsqqee Strips [id number]#1.00[facility] Electronic Messagingon 93-11-3427Qxpxccgmyp Messaging--- --- --- --- --- --- --- --- --- From: Directtest (Zdwrrr00), Directtest To: ZAINA WINTERS Sent: 09/19/21 04:18:10 AM EDT Subject: Discharge Summary Ready to View A summary regarding your recent visit is available in the Documents section of your Health Record.[facility].Auto Diff 1on 48-34-7030Hqmh [place] %9 %Normal1-12[facility]uder HospitalComment on above:Performed By: #### [id number], [id number], [id number] #### [facility] (DEFAULT) [address] [place] [address] 86697Pmqh Abs#0.0 z10Jqqxou7.0-0.2Magruder HospitalComment on above:Performed By: #### [id number], [id number], [id number] #### [facility] (DEFAULT) [address] [place] [address] 92563Bdbychvki/100 WBC (Bld)0.0 %Low0.2-2.0[facility] Comment on above:Performed By: #### [id number], [id number], 5347843 #### [facility] (DEFAULT) [address] [place] [address] 31645Xvb Abs#0.0 o31Vpvffo2.0-0.4Magrmercy health perrysburg hospital HospitalComment on above:Performed By: #### [id number], [id number], 7358620 #### [facility] (DEFAULT) [address] [place] [address] 63763Znpoxgpotcn/100 WBC (Bld)0.0 %Low0.9-4.0[facility] Comment on above:Performed By: #### [id number], [id number], 5057515 #### [facility] (DEFAULT) [address] [place] [address] 79447Yajtl Abs#1.2 y21Agy3.3-2.9[facility]uder HospitalComment on above:Performed By: #### [id number], [id number], [id number] #### [facility] (DEFAULT) [address] [place] [address] 62371Rlskearjofl/100 WBC (Bld)9 %Sxk91-75BbbmqnlyUniversity Hospitals Parma [facility] Center Comment on above:Performed By: #### [id number], [id number], [id number] #### [facility] (DEFAULT) [address] [place] [address] 97312Uttr Abs#1.3 z18Mqpd9.0-0.8[facility] HospitalComment on above:Performed By: #### [id number], [id number], 5802624 #### [facility] (DEFAULT) [address] [place] [address] 38562Kyif Abs#11.6 p65Jssf8.5-9.2[facility] HospitalComment on above:Performed By: #### [id number], [id number], 5000590 #### [facility] (DEFAULT) [address] [place] [address] 18370Cwtrlqivgjj/100 WBC (Bld)82 %Xsmvop33-84Cbgsmazh Hospital Comment on above:Performed By: #### [id number], [id number], 4619801 #### [facility] (DEFAULT) [address] [place] [address] 60508SGZ w/ Auto Diffon 94-95-0257Eqsfqnmvlhr distribution width (RBC) [Ratio]14.0 %Lmzgry92.5-15.0[facility] Medical CenterComment on above: Performed By: #### [id number], [id number], 3569598 #### [facility] (DEFAULT) [address] [place] [address] 73529Qlxkkaxlka (Bld) [Volume fraction]36.8 %Qiogmg81.8-51.9 [facility] Medical CenterComment on above:Performed By: #### [id number], [id number], 2320151 #### [facility] (DEFAULT) [address] [place] [address] 13818Helggbsvto (Bld) [Mass/Vol]11.9 g/uSUzveqa80.8-17.7 [facility] HospitalComment on above:Performed By: #### [id number], [id number], 5415791 #### [facility] (DEFAULT) [address] [place], [place] [address]Instr WBC14.2 p34Cbzgntg Interpretation CodeSouthwest General Health Center HospitalComment on above:Performed By: #### [id number], [id number], [id number] #### [facility] (DEFAULT) [address] [place] [address] 38670Pav Diff?AutoNormalSouthwest General Health Center HospitalComment on above: Performed By: #### [id number], [id number], 3007487 #### [facility] (DEFAULT) [address] [place], [place] [address]H (RBC) [Entitic mass]30 snSydzzv32-40Qillnggy Hospital Comment on above:Performed By: #### [id number], [id number], 8150824 #### [facility] (DEFAULT) [address] [place], [place] [address]HC (RBC) [Mass/Vol]32 g/dMWytamk39-65Ewcyrdys Hospital Comment on above:Performed By: #### [id number], [id number], 0631075 #### [facility] (DEFAULT) [address] [place], [place] [address]V (RBC) [Entitic vol]94 pUPtoomx06-863S[facility]bgin Hospital Comment on above:Performed By: #### [id number], [id number], [id number] #### [facility] (DEFAULT) [address] [place] [address] 76012Difsuqxz580 p71Jnpsut178-049Sjvvyqlb HospitalComment on above:Performed By: #### [id number], [id number], 6778994 #### [facility] (DEFAULT) [address] [place] [address] 27850Eanzylqb mean volume (Bld) [Entitic vol]10.4 fLHigh 6.3-10.2[facility] HospitalComment on above:Performed By: #### [id number], [id number], 6285128 #### [facility] (DEFAULT) [address] [place] [address] 78415KTV2.92 v12Jhvcyz1.70-5.30Mawayne hospital HospitalComment on above:Performed By: #### [id number], [id number], 0645316 #### [facility] (DEFAULT) [address] [place] [address] 88383GDY93.2 l18Muom2.5-10.5Mawayne hospital HospitalComment on above: Performed By: #### [id number], [id number], 4464550 #### [facility] (DEFAULT) [address] [place] [address] 59439Xcfzsykohgr Panel Standardon 31-74-1984Hyllz gap [Moles/Vol]12.0 mmol/LNormal5.0-19.0Mawayne hospital HospitalComment on above:Performed By: #### [id number], [id number], 7257625 #### [facility] (DEFAULT) [address] [place] [address] 86785Xkybqvnv [Moles/Vol]98 mmol/URso787-305Xbttyryt Hospital Comment on above:Performed By: #### [id number], [id number], 2509075 #### [facility] (DEFAULT) [address] [place] [address] 58677NQ5 [Moles/Vol]28 mmol/IEzazjs70-07Nmxjloli Hospital Comment on above:Performed By: #### [id number], [id number], 7356534 #### [facility] (DEFAULT) [address] [place] [address] 46884Jjvjyxern [Moles/Vol]3.8 mmol/LNormal3.6-5.1Magrmercy health perrysburg hospital HospitalComment on above:Performed By: #### [id number], [id number], 8940290 #### [facility] (DEFAULT) [address] [place] [address] 87845Qqlqkz [Moles/Vol]134.0 mmol/NIvz019.0-144.0[facility] HospitalComment on above:Performed By: #### [id number], [id number], 7597794 #### [facility] (DEFAULT) [address] [place], [place] [address]Cdgblykmy Patient Summaryon 36-68-2290Oqbhgxuzf Patient Summary[address] [address] Patient Discharge Instructions Name: ZAINA WINTERS Carmen : 1950 Patient Address: [address] [place], [place] [address] Primary Care Provider: Name: Jeannine Hurley After you are discharged if you find you have any questions, please, call [phone] ext [phone] to speak to a nurse. Discharge Diagnosis: [...] problems; contact the [facility] 05/09 Crisis Hotline -text 4HKVA sd [phone]. If you received any narcotics, sedation, or [...] business decisions or sign any legal documents [facility] would like to thank you for allowing us to assist you with your healthcare needs.The following includes patient education materials and information regarding your injury/illness. ZAINA WINTERS has been given the following list of follow-up instructions, prescriptions, and patient education materials: Follow-up Instructions With: Address: When: Trenton Redd [address] [place] [address], [address] [place] [id number] Business (1) 10/01/2021 11:00 AM Medications During [...] weight to tolerance (more content not included)...Normal [facility] Medical CenterPharmacy Noteon 90-06-6294Fsrycsdp NoteI have personally reviewed the patient's medication [...] Montgomery [Verified on: 09/18/2021 10:36 EDT] Brian MontgomeryUniversity Hospitals St. [facility] Note - Nurseon 68-61-5140Tblvsejw Note - NurseDischarged to home. Prescriptions and instructions reviewed with and given to pt. He verbalized understanding. Taken to awaiting vehicle via wheelchair. All belongings sent with pt. [Electronically Signed on: 09/29/2021 14:49 EDT] Mildred David RN [Verified on: 09/29/2021 14:49 EDT] Mildred David RNSt. Rita's Hospital Note - NursePOC discussed with pt. Educated on safety and ADL care once discharge home. He verbalized understanding [Electronically Signed on: 09/29/2021 14:49 EDT] Mildred David RN [Verified on: 09/29/2021 14:49 EDT] Mildred David RNWayne HospitalAnesthesia Noteon 40-12-9817Zhiwvhnivq NotePatient: ZAINA WINTERS Age: 70 years Sex: MALE : 1950 Associated Diagnoses: None Author: Eugene Castaneda MD Postoperative Information Post Operative Note: Operative Day. Anesthetic utilized: General. 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 Aftercare following left knee joint replacement surgery / SNOMED CT 341899160 / Confirmed Resolved: COVID-19 / SNOMED CT 6580854569 Resolved: Diabetes / SNOMED CT 641091180 Physical Examination VS/Measurements Vital Signs (last 24 [...] [Verified on: 09/17/2021 14:12 EDT] Eugene Castaneda MDWayne HospitalAnesthesia NotePatient: ZAINA WINTERS Age: 70 years [...] All Problems Atrial fibrillation / SNOMED CT 78168838 / Confirmed FH: hypertension / SNOMED CT 332415078 / Confirmed History of post-polio syndrome / SNOMED CT 286347683 / Confirmed Aftercare following left knee joint replacement surgery / SNOMED CT 700370373 / Confirmed Resolved: COVID-19 / SNOMED CT 8779207140 Resolved: Diabetes / SNOMED CT 390373842 Histories Family History: CA - Cancer of colon Grandparent Heart attack Mother Grandparent Tobacco user Mother Father Brother Procedure history: Arthroplasty of knee using cement (345940141) on 03/02/2021 at 70 Years. Back (365572488). Comments: 02/04/2021 10:08 Oliva Van RN surgery [...] Oriented. Review / Management Laboratory Results Plan [employer] [employer]esthesiologists#(ASA) physical status classification: Class III. Anesthetic Preoperative Plan Anesthesia: General. , Regional adductor canal block for post op pain control per surgeon request. Anesthetic plan, risks, benefits, and alternatives discussed with the patient and/or family. Patient verbalized understanding. [Electronically Signed on: 09/17/2021 11:19 EDT] Eugene Castaneda MD [Verified on: 09/17/2021 11:19 EDT] Eugene Castaneda MDLakeHealth [facility] Intraoperative Recordon 09-17-2021 [facility] [place] [place] RecordMAGR Intra-Op Record Summary Primary Physician: DAVID AWAD DO Finalized Date/Time: 09/17/21 14:17:42 Pt. Name: ZAINA WINTERS Carmen HannaB./Sex: 1950 MALE Med Rec #: [id number] Physician: DAVID AWAD DO Financial #: [id number] Pt. Type: D Room/Bed: [facility] Admit/Disch: 09/17/21 08:03:00 - Institution: [...] Role Performed Surgeon - Primary Anesthesiologist of Hospice Manager Record Time In 09/17/21 10:35:00 09/17/21 10:17:00 09/17/21 10:17:00 Time Out 09/17/21 13:32:00 09/17/21 14:10:00 09/17/21 14:10:00 Procedure Arthroplasty Knee Arthroplasty Knee Arthroplasty Knee Total(Right, Knee) Total(Right, Knee) Total(Right, Knee) Last Modified By: Zhanna Urrutia RN, Erica RN Baumer, Erica RN 09/17/21 14:17:37 09/17/21 14:17:37 09/17/21 14:17:37 Entry 4 Entry 5 Entry 6 Case Attendee Sue Rodriguez CHIEF PHARMACIST Marjorie Esteves CST, PA-C, Matthew J Role Performed Psychology Physician Scrub Personnel Physican Fixed Income Director Time In 09/17/21 10:17:00 09/17/21 10:17:00 [...] By Zhanna Urrutia RN Scrub 10% Povidone-Iodine [place] Prep Area (more content not included)...[facility] Intraoperative RecordMAGR Intra-Op Record Summary Primary Physician: Finalized Date/Time: 09/17/21 10:39:41 Pt. Name: ZAINA WINTERS /Sex: 1950 MALE Med Rec #: [id number] Physician: DAVID AWAD DO Financial #: [id number] Pt. Type: D Room/Bed: [facility]/1 Admit/Disch: 09/17/21 08:03:00 - Institution: Case Times [...] RN, Brayan Altamirano Role Performed Anesthesiologist of Hospice Manager Hospice Manager Record Time In 09/17/21 09:55:00 09/17/21 09:55:00 [...] Document Signatures Signed By (more content not included)...[facility] PACU Record on 75-40-2413QBGU PACU RecordMAGR PACU Record Summary Primary Physician: DAVID AWAD DO Finalized Date/Time: 09/17/21 15:19:58 Pt. Name: ZAINA WINTERS /Sex: 1950 MALE Med Rec #: [id number] Physician: DAVID AWAD DO Financial #: [id number] Pt. Type: D Room/Bed: [facility] Admit/Disch: 09/17/21 08:03:00 - Institution: PACU Case Times MAGR Entry 1 In PACU I 09/17/21 14:10:00 Discharge from PACU 09/17/21 15:15:00 I Last Modified By: Vianca Celaya RN 09/17/21 15:19:57 Finalized By: Vianca Celaya RN Document Signatures Signed By: Vianca Celaya RN 09/17/21 15:19[facility] Pre[facility] Recordon 67-00-9536BQDA Preoperative RecordMAGR Pre-Op Record Summary Primary Physician: DAVID AWAD DO Finalized Date/Time: 09/17/21 10:43:23 Pt. Name: ZAINA WINTERS /Sex: 1950 MALE Med Rec #: [id number] Physician: DAVID AWAD DO Financial #: [id number] Pt. Type: D Room/Bed: 229/1 Admit/Disch: 09/17/21 [...] Signatures Signed By: Vianca Celaya RN 09/17/21 10:43Wayne HospitalNutrition Noteon 09-17-2021 Nutrition NotePt admitted for scheduled [...] Regular with in house available Ensure Compact BID.[facility] Progress Note - Nurseon 07-18-0441Acuptobw Note - NurseIV fluids stopped for good PO intake at this time [Electronically Signed on: 09/24/2021 15:45 EDT] Raquel Duvall RN [Verified on: 09/24/2021 15:45 EDT] Raquel Duvall RNWayne HospitalXR Knee One or Two Views Righton 95-05-3178JB Knee One or Two Views RightEXAM: XR [...] John Mckenna MD 09/17/21 4:07 pm Technologist: BRENNANMansfield HospitalProgress Note - Nurseon 09-16-2021 Progress Note - NursePre-op phone call complete. Reviewed arrival time of 0830 on Monday09/17/2021 and pre-op instructions with pt. Pt voiced understanding and is without further questions or concerns at this time. [Electronically Signed on: 09/16/2021 09:25 EDT] Brayan Roach RN [Verified on: 09/16/2021 09:25 EDT] Marley SUTTONBrayan [facility]2019 Novel Coronavirus (CoVID-19), JULISSA LCon 09-90-4660IQEU-CoV-2 (COVID-19) RNA JULISSA+probe Ql (Unsp spec)Not detectedInvalid Interpretation CodeNot Doctors HospitalComment on above:Order Comment: [phone] [id number] Comment: This nucleic acid amplification test was developed and its performance characteristics determined by [employer]. Nucleic acid amplification tests include RT- PCR [...] detected) result in this assay. Performed At: [address] [id number] Zay Landa PhD Ph:[phone] By: #### [id number] #### [facility] (DEFAULT) [address] [place] [address] 44839Pemuky Summaryon 53-74-0614Nextxj SummaryMLBase 64 BauekwkdHFa4dGz+PGhlYWQ+RS3HYJIfZ18vtLNrgK2TD4jSHG6AUMZIOCQEVS0NAX5noXG7KWxrI5Gg biAv [file] IGN (more content not included)...Wayne HospitalC Urineon 09-03-2021 Urine<10,000 cfu/mlNPomerene HospitalComment on above:Performed By: #### [id number] ####[facility] (DEFAULT)[address] [place] [address] 11961 Progress Note - Nurseon 21-56-7928Cdafmkrs Note - NursePAT chart for 09-17-2021 surgery reviewed per anesthesiologistDr Mccauley- no additional orders recei gregg. [Electronically Signed on: 09/02/2021 13:45 EDT] Rita Molina RN [Verified on: 09/02/2021 13:45 EDT] Rita Molina RNNoBellevue HospitalProvider Orderson 69-00-0798Qprqiiwr Ssowxw896.170.46.181.88585382962193940756US9PC#1.00OTGTIFFWayne Hospital.Auto Diff 1on 13-98-0756Ymzy [place] %9 %Normal1-12[facility] Comment on above:Performed By: #### [id number], [id number], [id number] ####[facility] (DEFAULT)[address] [place] [address] 70683Arvv Abs#0.0 m75Duxvnm 0.0-0.2MSelect Medical Specialty Hospital - CantonComment on above:Performed By: #### [id number], [id number], [id number] ####[facility] (DEFAULT)[address] [place] [address] 78991Ittcwqvhx/100 WBC (Bld)0.6 %Normal0.2-2.0[facility] HospitalComment on above:Performed By: #### [id number], [id number], [id number] ####[facility] (DEFAULT)[address] [place] [address] 87611Gmk Abs#0.0 u13Aflcgh6.0-0.4 [facility] HospitalComment on above:Performed By: #### [id number], [id number], 6035323 ####[facility] (DEFAULT)[address] [place] [address] 15405 Eosinophils/100 WBC (Bld)0.7 %Low0.9-4.0[facility]uder HospitalComment on above: Performed By: #### [id number], 38943892, 7742508 ####[facility] (DEFAULT)[address] [place] [address] 56635Lvqwt Abs#2.2 q11Ozmquu7.3-2.9 [facility] HospitalComment on above:Performed By: #### [id number], [id number], 2739164 ####[facility] (DEFAULT)[address] [place] [address] 63668 Lymphocytes/100 WBC (Bld)31 %Zbuuqd29-28Wpbjgmpa HospitalComment on above: Performed By: #### [id number], 09038151, 5880637 ####[facility] (DEFAULT)[address] [place] [address] 79994Shtq Abs#0.7 e13Ekggqg0.0-0.8 [facility] HospitalComment on above:Performed By: #### [id number], 01165522, 1436310 ####[facility] (DEFAULT)[address] [place] [address] 68033 Neut Abs#4.1 d62Gjmqiv1.5-9.2[facility] HospitalComment on above:Performed By: #### [id number], 28769240, 7661686 ####[facility] (DEFAULT)[address] [place] [address] 56088Bcruxymfjel/100 WBC (Bld)58 %Kxmsfx11-51Oivbwvpa HospitalComment on above:Performed By: #### [id number], [id number], 9415982 ####[facility] (DEFAULT)[address] [place] [address] 85992XJO Standardon 90-13-3059zVVK Non AA>60Invalid Interpretation [facility] Comment on above:Performed By: #### [id number], [id number], 4698654 ####[facility] (DEFAULT)[address] [place] [address] 03964vSIU AA>60Invalid Interpretation [facility] HospitalComment on above:Result Comment: Chronic Kidney disease could be indicated at eGFRs of less than 60 ml/min/1.73m2. Kidney Failure is indicated at less than 15 ml/min/1.85s7Rqgwrhasx By: #### [id number], [id number], [id number] ####[facility] (DEFAULT)[address] [place] [address] 23713Drdzh gap [Moles/Vol]12.0 mmol/LNormal5.0-19.0[facility] HospitalComment on above:Performed By: #### [id number], 20037751, 6086200 ####[facility] (DEFAULT)[address] [place] [address] 17159Raeswwq [Mass/Vol]9.7 mg/dL Normal8.9-10.3[facility] HospitalComment on above:Performed By: #### [id number], 47132801, 8091112 ####[facility] (DEFAULT)[address] [place] [address] 57509Nuihxbgi [Moles/Vol]102 mmol/WCdwkft591-562Fgnjcqhi HospitalComment on above:Performed By: #### [id number], 12225387, 6075566 ####[facility] (DEFAULT)[address] [place] [address] 67042ID3 [Moles/Vol]29 mmol/LNormal 21-32[facility] HospitalComment on above:Performed By: #### [id number], 77018891, 5337166 ####[facility] (DEFAULT)[address] [place] [address] 94407 Creatinine [Mass/Vol]0.94 mg/dLNormal0.90-1.30[facility] HospitalComment on above: Performed By: #### [id number], 01037036, 0513808 ####[facility] (DEFAULT)[address] [place] [address] 88518Qoulptc [Mass/Vol]109.0 mg/dL Agarbt04.0-118.0[facility] HospitalComment on above:Performed By: #### [id number], 22061098, 5723798 ####[facility] (DEFAULT)[address] [place] [address] 59406Wvnefcjlyb776 mOsm/LInvalid Interpretation CodeSouthwest General Health Center HospitalComment on above:Performed By: #### [id number], 53038697, 7562663 ####[facility] (DEFAULT)[address] [place] [address] 27997Olzltxxhd [Moles/Vol]4.1 mmol/L Normal3.6-5.1[facility] HospitalComment on above:Performed By: #### [id number], 76746876, 7490135 ####[facility] (DEFAULT)[address] [place] [address] 30014Lguliq [Moles/Vol]139.0 mmol/YHqwdlk254.0-144.0[facility] HospitalComment on above:Performed By: #### [id number], 16462638, 2717706 ####[facility] (DEFAULT)[address] [place] [address] 45359Oxlc nitrogen [Mass/Vol]21 mg/dL Normal8-26[facility] HospitalComment on above:Performed By: #### [id number], 30624483, 1556223 ####[facility] (DEFAULT)[address] [place] [address] 06255Nyjp nitrogen/Creatinine [Mass ratio]22.0 mg/mgHigh4.6-16.2[facility] HospitalComment on above:Performed By: #### [id number], 31138102, 9113353 ####[facility] (DEFAULT)[address] [place] [address] 69859AUT w/ Auto Diffon 12-26-6306Eemvtqxeovn distribution width (RBC) [Ratio]14.0 %Normal 11.5-15.0[facility] CenterComment on above:Performed By: #### [id number], 36436529, 1994552 #### [facility] (DEFAULT) [address] [place] [address] 29214Zhndgywdqi (Bld) [Volume fraction]45.0 %Pucimr52.8-51.9 [facility] Medical CenterComment on above:Performed By: #### [id number], 03933690, 3402276 #### [facility] (DEFAULT) [address] [place], [place] [address]Hemoglobin (Bld) [Mass/Vol]14.5 g/rUEzyohb36.8-17.7 [facility] CenterComment on above:Performed By: #### [id number], 86435887, 5755059 #### [facility] (DEFAULT) [address] [place] [address] 50127Ugauz WBC7.0 b53Wcgehwz Interpretation CodeUniversity Hospitals Parma Medical CenterComment on above:Performed By: #### [id number], 33535704, 8374721 #### [facility] (DEFAULT) [address] [place] [address] 26497Ixs Diff?AutoNormalUniversity Hospitals Parma Medical CenterComment on above: Performed By: #### [id number], 89368620, 8315429 #### [facility] (DEFAULT) [address] [place] [address] 77485CSX (RBC) [Entitic mass]30 iwZvqzkm50-14[facility] Comment on above:Performed By: #### [id number], 54687954, 5525123 #### [facility] (DEFAULT) [address] [place] [address] 55039FFZT (RBC) [Mass/Vol]32 g/zUVfkbly59-43Gfqjewuw Hospital Comment on above:Performed By: #### [id number], 04738521, 0535832 #### [facility] (DEFAULT) [address] [place] [address] 29138SEP (RBC) [Entitic vol]93 wEVqmswo84-236Giixqmvf Hospital Comment on above:Performed By: #### [id number], 89016515, 1802645 #### [facility] (DEFAULT) [address] [place] [address] 99281Crkgztpk539 o36Kvwium928-071Unsdhsof HospitalComment on above:Performed By: #### [id number], 38755329, 3349862 #### [facility] (DEFAULT) [address] [place] [address] 96131Gvkvcvba mean volume (Bld) [Entitic vol]10.2 fLNormal 6.3-10.2[facility] HospitalComment on above:Performed By: #### [id number], 47865270, 9974638 #### [facility] (DEFAULT) [address] [place] [address] 01819GTO5.86 j56Rfnxio5.70-5.30Mawayne hospital HospitalComment on above:Performed By: #### [id number], 78453439, 4054884 #### [facility] (DEFAULT) [address] [place] [address] 46376NTA7.0 l49Ubdgse6.5-10.5[facility] HospitalComment on above: Performed By: #### [id number], 84112790, 7297006 #### [facility] (DEFAULT) [address] [place] [address] 50174PA Bone Length Studies Scanogramson 23-26-3389XL Bone Length Studies ScanogramsEXAM: XR Bone Length [...] John Mckenna MD 09/04/21 4:45 pm Technologist: RONAK,[facility] HospitalComplete Blood Count with Auto Diffon 20-61-4304Abohbwxgf (Bld) [#/Vol]0.04 10*3/uLNormal0.00-0.20[address]ortWilson [address] Hospital SpecialistComment on above:Performed By: #### CMP, CBCAD #### [facility] [address], [place] [address]Wsrnibxkj/100 WBC (Bld)0.6 %NormalNoElyria Memorial Hospital SpecialistComment on above:Performed By: #### CMP, CBCAD #### [facility] [address], [place] [address]Mxbhaargvsd (Bld) [#/Vol]0.11 10*3/uLNormal0.02-0.50[address] Hospital SpecialistComment on above:Performed By: #### CMP, CBCAD #### [facility] [address], [place] [address]Migyjvmmstt/100 WBC (Bld)1.7 %NormalNoElyria Memorial Hospital SpecialistComment on above:Performed By: #### CMP, CBCAD #### [facility] [address], [place] [address]Bhacrhgcqye distribution width (RBC) [Ratio]13.7 %Normal 11.0-15.0NoElyria Memorial Hospital SpecialistComment on above:Performed By: #### CMP, CBCAD #### [facility] [address], [place] [address]Bkuqknrzpk (Bld) [Volume fraction]43.3 %Ogcdig04.5-50.0 [facility] SpecialistComment on above:Performed By: #### CMP, CBCAD #### [facility] [address], [place] [address]Qbrximqgfz (Bld) [Mass/Vol]14.1 g/nGPmfzds11.0-17.1NorthMer[facility] SpecialistComment on above:Performed By: #### CMP, CBCAD #### [facility] [address], [place] [address]Liqeagognlu (Bld) [#/Vol]1.7 10*3/uLNormal0.9-3.9[facility] SpecialistComment on above:Performed By: #### CMP, CBCAD #### [facility] [address], [place] [address]Udesgvzbamd/100 WBC (Bld)26.3 %NormalSt. Vincent Hospital SpecialistComment on above:Performed By: #### CMP, CBCAD #### [facility] [address], [place] [id number] (RBC) [Entitic mass]29.1 ngOotgxq23.0-33.0[facility] SpecialistComment on above:Performed By: #### CMP, CBCAD #### [facility] [address], [place] [address]SCOU (RBC) [Mass/Vol]32.6 g/zJJptyuv57.0-36.0[facility] SpecialistComment on above:Performed By: #### CMP, CBCAD #### [facility] [address], [place] [address]QBL (RBC) [Entitic vol]90 rZZnnwpj34-303Kypsykzl [facility] SpecialistComment on above:Performed By: #### CMP, CBCAD #### [facility] [address], [place] [address]Xddzjygqm (Bld) [#/Vol]0.6 10*3/uLNormal0.2-0.9[facility] SpecialistComment on above:Performed By: #### CMP, CBCAD #### [facility] [address], [place] [address]Gybgmhiac/100 WBC (Bld)9.6 %NormalSt. Vincent Hospital SpecialistComment on above:Performed By: #### CMP, CBCAD #### [facility] [address], [place] [address]Yzgzxtoesca (Bld) [#/Vol]3.9 10*3/uLNormal1.5-7.8[address] [facility] SpecialistComment on above:Performed By: #### CMP, CBCAD #### [facility] [address], [place] [address]Awgsjkmtpws/100 WBC (Bld)61.5 %NormalNoElyria Memorial Hospital SpecialistComment on above:Performed By: #### CMP, CBCAD #### [facility] [address], [place] [address]Lkmwdzqc mean volume (Bld) [Entitic vol]11.30 fLNormal 7.50-12.50NoElyria Memorial Hospital SpecialistComment on above:Performed By: #### CMP, CBCAD #### [facility] [address], [place] [address]Njaqejzkr (Bld) [#/Vol]222 10*3/yFExpbcr440-397Vjrelvft [facility] SpecialistComment on above:Performed By: #### CMP, CBCAD #### [facility] [address], [place] [address]LFS (Bld) [#/Vol]4.84 10*6/uLNormal4.20-5.80[address] [facility] SpecialistComment on above:Performed By: #### CMP, CBCAD #### [facility] [address], [place] [address]TQM-PU46.9 pXUljbfj01.0-50.0NoElyria Memorial Hospital Specialist Comment on above:Performed By: #### CMP, CBCAD #### [facility] [address], [place] [address]NHY (Bld) [#/Vol]6.4 10*3/uLNormal3.8-11.0NoElyria Memorial Hospital SpecialistComment on above:Performed By: #### CMP, CBCAD #### [facility] [address], [place] [address]783Ewfgxqoszekcf Metabolic Panelon 65-00-6828Auqyqcz [Mass/Vol] 4.6 g/dLNormal3.6-5.1[facility] SpecialistComment on above:Performed By: #### CMP, CBCAD #### [facility] [address], [place] [address]Vuxxrsl/Globulin [Mass ratio]2.2 {ratio}Normal1.0-2.5NoElyria Memorial Hospital SpecialistComment on above:Performed By: #### CMP, CBCAD #### [facility] [address], [place] [address]16XPT [Catalytic activity/Vol]80 U/ZEioldj65-003Kynngokq [facility] SpecialistComment on above:Performed By: #### CMP, CBCAD #### [facility] [address], [place] [address]TRM [Catalytic activity/Vol]16 U/LNormal9-46NoElyria Memorial Hospital SpecialistComment on above:Result Comment: 01/13/2021 Female reference range changed.Performed By: #### CMP, CBCAD #### [facility] [address], [place] [address]Rhlqy gap [Moles/Vol]17 mmol/EFfvtth40-88Rjjlznvj [facility] SpecialistComment on above:Result Comment: Effective 02/18/2019 reference range changed.Performed By: #### CMP, CBCAD #### [facility] [address], [place] [address]KMW [Catalytic activity/Vol]22 U/TRzbfyf03-18UwdxgejnSt. Vincent Hospital SpecialistComment on above:Performed By: #### CMP, CBCAD #### [facility] [address], [place] [address]Svitgzkvs [Mass/Vol]0.40 mg/dLNormal0.30-1.20Nortst. mary's hospitaln [facility] SpecialistComment on above:Performed By: #### CMP, CBCAD #### [facility] [address], [place] [address]GLK/CREA20 RatioNormal6-22[address] HospitalRooter Operator Comment on above:Performed By: #### CMP, CBCAD #### [facility] [address], [place] [address]Ytwuzvm [Mass/Vol]9.4 mg/dLNormal8.6-10.2[facility] SpecialistComment on above:Performed By: #### CMP, CBCAD #### [facility] [address], [place] [address]876Vzeabpjf [Moles/Vol]101 mmol/IGpugmv63-803Iljifxcq [facility] SpecialistComment on above:Performed By: #### CMP, CBCAD #### [facility] [address], [place] [address]BH2 [Moles/Vol]26 mmol/OPejytd97-49Ldvtjdtn [facility] SpecialistComment on above:Performed By: #### CMP, CBCAD #### [facility] [address], [place] [address]Lhlascedlk [Mass/Vol]0.7 mg/dLNormal0.7-1.4[address] [facility] SpecialistComment on above:Performed By: #### CMP, CBCAD #### [facility] [address], [place] [address]39eGXWRY718 mL/min/1.95e8Fkndto>60[address] [facility] SpecialistComment on above:Performed By: #### CMP, CBCAD #### [facility] [address], [place] 9[address]481eCISHDN033 mL/min/1.11b7Ncdtes>60[address] [facility] SpecialistComment on above:Performed By: #### CMP, CBCAD #### [facility] [address], [place] [address]Fyajfhdi (S) [Mass/Vol]2.1 g/dLNormal1.9-3.7NoElyria Memorial Hospital SpecialistComment on above:Performed By: #### CMP, CBCAD #### [facility] [address], [place] [address]Hlxgebb [Mass/Vol]98 mg/lJZhaaiu54-69Etrrbkrf [facility] SpecialistComment on above:Result Comment: For FASTING Glucose --- ADA reference ranges: Normal 65-99 mg/dl Prediabetes 100-125 Diabetes >/= 126Performed By: #### CMP, CBCAD #### [facility] [address], [place] [address]Vwmbyfidy [Moles/Vol]3.9 mmol/LNormal3.5-5.5NoElyria Memorial Hospital SpecialistComment on above:Performed By: #### CMP, CBCAD #### [facility] [address], [place] [address]Onaqdih [Mass/Vol]6.7 g/dLNormal6.1-8.1NorthMer[facility] SpecialistComment on above:Performed By: #### CMP, CBCAD #### [facility] [address], [place] [address]Ibvcvd [Moles/Vol]139 mmol/AUjsyyp042-282Herxkfkp [facility] SpecialistComment on above:Performed By: #### CMP, CBCAD #### [facility] [address], [place] [address]Pfiw nitrogen [Mass/Vol]14 mg/dLNormal7-25NoElyria [facility] SpecialistComment on above:Performed By: #### CMP, CBCAD #### [facility] [address], [place] [address]47Qkylcwtmes A1Con 66-88-7577LSB890.98NormalNoElyria Memorial Hospital SpecialistComment on above:Performed By: #### A1C #### [facility] [address], [place] [address]SeS2j (Bld) [Mass fraction]6.4 %High4.0-6.0NoElyria Memorial Hospital SpecialistComment on above:Performed By: #### A1C #### [facility] [address] [place], [place] [address]V - B-TYPE NATRIURETIC (BNP)on 06-94-6370Vmvkcjlcvaq peptide B (Bld) [Mass/Vol]33 pg/mLNormal<100[facility] SpecialistComment on above:Order Comment: [facility] performed at: [facility], [facility], [address], [address] [place], [address], Supervisor Elementary Education: Curtis Lyons MD [facility] Collection Date/Time: [id number] [facility] Results Received Date/Time: [facility] Reported Date/Time: FASTING: NOResult Comment: BNP levels increase with age in the general population with the highest values seen in individuals greater than 75 years of age. Reference: J. Am. Cheryl. Cardiol. 2002; 40:976-982.Performed By: #### [id number] #### [facility] Default [address] [place], [place] [address]Ainyar Summaryon [id number] SummaryHTMLBase 64 OczzjwimWXa5uZr+PGhlYWQ+SA6VEQYnY67nvIFbzM0JR4sQUE6PEQHWWNNJLB9MQG1nlGF5UDkvT0Hv biAv [file] IGN (more content not included)...[facility] HospitalConsent Formson [id number] [id number]#1.00OTGTIFF [facility] HospitalCoding Summaryon 49-37-4865Lavvyq SummaryHTMLBase 64 TkkbiayhQNp2lAm+PGhlYWQ+CD7AFKHvV43kvDSsaL4DZ2kZAS6FIZDLRSTIPU4CSJ5ezZL7KZjjP4Me biAv [file] Y29 (more content not included)...NormalSouth[facility] HospitalCoding Summaryon 66-23-9487Llplgg SummaryHTMLBase 64 SkvasqxmJBm2dBk+PGhlYWQ+VL3SDYKyF86ooFGnbQ1JG3pIKL7SNNWTEGUNIV3AYS7xzEE8NUsrV2Ma biAv [file] IGN (more content not included)...[facility] HospitalConsent Formson 35-62-6508Ippruww [id number]#1.00OTGTIFF Wayne HospitalElectronic Messagingon 13-65-6344Grzinzwhsu Messaging--- --- --- --- --- --- --- --- --- From: Directtest (Xptlno94), Directtest To: ZAINA WINTERS Sent: 03/04/21 10:12:15 AM EST Subject: Discharge Summary Ready to View A summary regarding your recent visit is available in the Documents section of your Health Record.[facility] Intraoperative Recordon 12-93-8700KOLG Intraoperative RecordMAGR Intra-Op Record Summary Primary Physician: DAVID AWAD Finalized Date/Time: 03/04/21 08:14:12 Pt. Name: ZAINA WINTERS.O.B./Sex: 1950 MALE Med Rec #: [id number] Physician: DAVID AWAD Financial #: [id number] Pt. Type: O Room/Bed: [facility] Admit/Disch: 03/02/21 05:52:00 - 03/03/21 14:09:00 Institution: [...] Role Performed Surgeon - Primary Anesthesiologist of Hospice Manager Record Time In 03/02/21 08:00:00 03/02/21 08:00:00 03/02/21 08:00:00 Time Out 03/02/21 12:09:00 03/02/21 12:09:00 03/02/21 12:09:00 Procedure Arthroplasty Knee Arthroplasty Knee Arthroplasty Knee Total(Left) Total(Left) Total(Left) Last Modified By: Jo-Ann Schwab RN, Barbara RN Long, Barbara RN 03/02/21 12:19:51 03/02/21 12:19:51 03/02/21 12:19:51 Entry 4 Entry 5 Entry 6 Case Attendee Marjorie Esteves CHIEF PHARMACIST, Sue Horner CHIEF PHARMACIST Role Performed Scrub Personnel Psychology Physician Psychology Physician Time In 03/02/21 08:00:00 03/02/21 08:00:00 03/02/21 [...] Last Modified By: Zaheer (more content not included)...[facility] Outside Recordson 08-61-9526Qnkvovd Records [id number]#1.00[facility] Provider Orderson 81-56-4014Ygktsxbq Orders [id number]#1.00[facility] Telemetry Stripson 81-56-7156Qeexfwqkb Strips [id number]#1.00[facility].Auto Diff 1on 33-76-7168Pbke [place] %10 %Normal1-12[facility] HospitalComment on above: Performed By: #### [id number], 05436313, 6177106106, 7302313394, 0279368, 8472493566 ####[facility] (DEFAULT)[address] [place] [address] 78178Satf Abs#0.0 z44Npiuel8.0-0.2[facility]uder HospitalComment on above:Performed By: #### 0569227274, 04740066, 9989071944, 6544904618, 8103505, 5540465752 ####[facility] (DEFAULT)[address] [place] [address] 80233 Basophils/100 WBC (Bld)0.0 %Low0.2-2.0[facility] hospital HospitalComment on above: Performed By: #### 7865470449, 84340254, 0595038656, 1843230848, 7037314, 3904683504 ####[facility] (DEFAULT)[address] [place] [address] 14940Qtp Abs#0.0 r20Wschmx7.0-0.4[facility] HospitalComment on above:Performed By: #### 9395369702, 80690575, 5084953964, 0501029515, 0070966, 6911248930 ####[facility] (DEFAULT)[address] [place] [address] 35097 Eosinophils/100 WBC (Bld)0.0 %Low0.9-4.0[facility] HospitalComment on above: Performed By: #### 1157642706, 44868954, 9317879046, 8457049920, 1551734, 2279440190 ####[facility] (DEFAULT)[address] [place] [address] 17874Kijaq Abs#1.9 s79Zztzch8.3-2.9[facility] HospitalComment on above:Performed By: #### 3805977181, 69541688, 6475955729, 2476552253, 9110128, 6360442725 ####[facility] (DEFAULT)[address] [place] [address] 45790 Lymphocytes/100 WBC (Bld)10 %Gmb19-43Rojzbnyh HospitalComment on above:Performed By: #### 2985467707, 09742378, 9294762863, 5365919096, 2600713, 0034912784 ####[facility] (DEFAULT)[address] [place] [address] 23939Szcn Abs# 1.9 t31Ojks9.0-0.8[facility] HospitalComment on above:Performed By: #### 6535692777, 88385353, 8797797532, 6912225470, 6661546, 7767779930 ####[facility] (DEFAULT)[address] [place] [address] 12542Qnae Abs#16.2 l58Dlly 1.5-9.2[facility] HospitalComment on above:Performed By: #### 1839807847, 80198480, 9400742679, 4381034999, 9798174, 2362137235 ####[facility] (DEFAULT)[address] [place] [address] 23001Zgvcohkpetl/100 WBC (Bld)81 % Obylco20-65Kwrrrufv HospitalComment on above:Performed By: #### 6636084466, 72437822, 7368540170, 8418783062, 5112533, 7688535206 ####[facility] (DEFAULT)[address] [place] [address] 34958LHS w/ Auto Diffon 03-03-2021 Erythrocyte distribution width (RBC) [Ratio]13.5 %Subiuh74.5-15.0[facility] HospitalComment on above:Performed By: #### 5090240649, 22596850, 2075972298, 4926558338, 3869381, 0079374907 ####[facility] (DEFAULT)[address] [place] [address] 93983Cjzjamfnow (Bld) [Volume fraction]40.5 %Normal 34.8-51.9[facility] Medical CenterComment on above:Performed By: #### 7277322561, 91833956, 4047089962, 4403801646, 4978459, 9056858190 ####[facility] (DEFAULT)[address] [place] [address] 94546Mlwoqyycxa (Bld) [Mass/Vol]12.8 g/rTZlxnig08.8-17.7[facility] Medical CenterComment on above:Performed By: #### 6410070543, 74528903, 7507120807, 8590012097, 7978494, 0636892124 ####[facility] (DEFAULT)[address] [place] [address] 47146Teqmd WBC20.1 x10 Invalid Interpretation CodeUniversity Hospitals Parma Medical CenterComment on above:Performed By: #### 9406256886, 41127125, 3542954789, 1572687422, 7007475, 7513862626 ####[facility] (DEFAULT)[address] [place] [address] 60047Uut Diff?AutoNormal [facility] Medical CenterComment on above:Performed By: #### 0905045798, 34075648, 9441426619, 9522761765, 6600918, 9002645404 ####[facility] (DEFAULT)[address] [place] [address] 47385SQL (RBC) [Entitic mass]30 iaYczppw08-30 [facility] CenterComment on above:Performed By: #### 0367876643, 46208254, 3475939786, 0767079742, 3109728, 0058823656 ####[facility] (DEFAULT)[address] [place] [address] 23311XRAX (RBC) [Mass/Vol]32 g/cUZpwtfi09-85 [facility] CenterComment on above:Performed By: #### 5304566243, 50999752, 1518631663, 6722303538, 6426586, 2112777341 ####[facility] (DEFAULT)[address] [place] [address] 08864UFH (RBC) [Entitic vol]96 mMSgftjr43-789 [facility] CenterComment on above:Performed By: #### 7685068589, 02647203, 8290591545, 0212386526, 7443378, 4069961959 ####[facility] (DEFAULT)[address] [place] [address] 52468Fmuktupw047 l85Wztorz300-417Kkeqbgul Hospital Comment on above:Performed By: #### 3321817416, 97942768, 5018299683, 0437132272, 5469354, 9629367750 ####[facility] (DEFAULT)[address] [place] [address] 16875Fkkdftqk mean volume (Bld) [Entitic vol]10.3 fLHigh 6.3-10.2MSelect Medical Specialty Hospital - CantonComment on above:Performed By: #### 1919297844, 13584356, 0818164994, 8584628504, 8127902, 0360872101 ####[facility] (DEFAULT)[address] [place] [address] 39835CNC3.24 n09Xxwasq0.70-5.30 [facility] CenterComment on above:Performed By: #### 8286749760, 65395194, 4339769887, 0682386969, 4108804, 4320104871 ####[facility] (DEFAULT)[address] [place] [address] 65040PCO33.1 l60Djej5.5-10.5[facility] Comment on above:Result Comment: Slide ReviewedPerformed By: #### 0941323343, 82239124, 6084622308, 3228820216, 0945910, 2689626629 ####[facility] (DEFAULT)[address] [place] [address] 70343Hpprvalyycm Panel Standardon 94-28-8996Yykoo gap [Moles/Vol]17.0 mmol/LNormal5.0-19.0[facility] HospitalComment on above:Performed By: #### 4844720687, 14434024, 3138770218, 4056241754, 4015447, 4226481863 ####[facility] (DEFAULT)[address] [place] [address] 28266Iwbaurgy [Moles/Vol]97 mmol/RXim233-268Izsnmweh HospitalComment on above:Performed By: #### 8972385207, 36212868, 9359394397, 0242924097, 4723902, 5138616832 ####[facility] (DEFAULT)[address] [place] [address] 97712VQ1 [Moles/Vol]26 mmol/HQrcnmk52-11Tlxbwdtz HospitalComment on above:Performed By: #### 5152039543, 45805132, 8735765436, 2837323235, 0838503, 2962440913 ####[facility] (DEFAULT)[address] [place] [address] 99028Vutguzsti [Moles/Vol]3.9 mmol/LNormal3.6-5.1Magrmercy health perrys[facility] hospital HospitalComment on above:Performed By: #### 2107937225, 33254826, 5591458117, 2855366215, 4140109, 8201919934 ####[facility] (DEFAULT)[address] [place] [address] 89920Hdrdwb [Moles/Vol]136.0 mmol/CDgutek917.0-144.0[facility] HospitalComment on above:Performed By: #### 7272102608, 38622640, 6336894861, 5964873934, 3721484, 8284744849 ####[facility] (DEFAULT)[address] [place] [address] 34766Kdxjr Greenon 20-96-1126Ccdh CollectedYesInvalid Interpretation Code [facility] CenterComment on above:Performed By: #### 2502852229, 56470182, 3138613102, 6562049042, 5563744, 6789890195 ####[facility] (DEFAULT)[address] [place] [address] 88405Cnoawgrgd Patient Summaryon 03-03-2021 Inpatient Patient Summary[address] [address] Patient Discharge Instructions Name: ZAINA WINTERS : 1950 Patient Address: [address] [place] [address] Primary Care Provider: Name: Jeannine Hurley After you are discharged if you find you have any questions, please, call [phone] ext [phone] to speak to a nurse. Discharge Diagnosis: [...] problems; contact the [facility] 05/09 Crisis Hotline -Text 4HVYR sw 836009. If you received any narcotics, sedation, or [...] business decisions or sign any legal documents [facility] would like to thank you for allowing us to assist you with your healthcare needs.The following includes patient education materials and information regarding your injury/illness. ZAINA WINTERS has been given the following list of follow-up instructions, prescriptions, and patient education materials: Follow-up Instructions With: Address: When: Trenton Redd [address] [place] [address], [address] [place] [address] Business (1) 03/15/2021 10:30 AM With: Address: When: Jeannine Evangelista [address] [place] [address] Business (1) Medications During the course of [...] (rOPINIRole 0.5 mg oral (more content not included)...[facility] Postoperative Recordon 52-89-7749DMDN Postoperative RecordMA Phase II Record Summary Primary Physician: DAVID AWAD Finalized Date/Time: 03/03/21 08:37:51 Pt. Name: ZAINA WINTERS/Sex: 1950 MALE Med Rec #: [id number] Physician: DAVID AWAD Financial #: [id number] Pt. Type: O Room/Bed: [facility]/ Admit/Disch: 03/02/21 05:52:00 - Institution: Phase II Case Times MAGR Pre-Care Text: Patient is free from s/s of injury. Patient remains free from compromised physical state related tosurgery or anesthesia. Patient comfort maintained. Patient/family verbalize understanding of discharge instructions. Entry 1 In PACU II 03/02/21 12:59:00 Discharge from PACU 03/02/21 13:45:00 II Last Modified By: Vianca Celaay RN 03/03/21 08:37:47 Post-Care Text: The patient [...] Signatures Signed By: Vianca Celaya RN 03/03/21 08:37[facility] HospitalNutrition Noteon 03-03-2021 Nutrition NotePt admitted for scheduled Lt total knee surgery. Diet advanced to 3000kcal DM, along w/ usual post op vitamins/minerals and oral nutritional supplements; adjusted by automobile service writer to 2000kcal to better meetnutritional needs without overcompensating. Labs reviewed, BS 138-177mg/dl ideal post op. Pt at high nutrition risk r/t age greater than 65y, however, no immediate nutrition concerns at this time. Will monitor for changes.[facility] Anesthesia Noteon 60-95-3256Zoowbxprde NotePatient: ZAINA WINTERS Age: 70 years Sex: [...] DO [Verified on: 03/02/2021 12:40 EST] Dre Satnos [facility] HospitalAnesthesia NotePatient: ZAINA WINTERS Age: 70 years [...] = 20 mL, 100 mL/hr, IV Piggyback, Shuttle Final Inspector tranexamic acid: 1,000 mg = 100 mL, 300 mL/hr, IV Piggyback, Shuttle Final Inspector tranexamic acid: 1,000 mg = 100 mL, 300 mL/hr, IV Piggyback, Shuttle Final Inspector Documented Medications Documented Eliquis 5 mg oral [...] All Problems Atrial fibrillation / SNOMED CT 86701379 / Confirmed COVID-19 / SNOMED CT 4910689098 / Confirmed Diabetes / SNOMED CT 323518509 / Confirmed FH: hypertension / SNOMED CT 791016559 / Confirmed 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 Comments: 02/04/2021 10:08 Oliva Van RN surgery [...] review ECG interpretation: Normal sinus rhythm. Plan [employer] [employer]#(ASA) physical status classification: Class [...] 09:12 EST] Aiden Santos (more content not included)...[facility] Intraoperative Recordon 97-10-5632HHYN Intraoperative RecordMAGR Intra-Op Record Summary Primary Physician: Finalized Date/Time: 03/02/21 08:23:07 Pt. Name: ZAINA WINTERS./Sex: 1950 MALE Med Rec #: [id number] Physician: DAVID AWAD Financial #: [id number] Pt. Type: D Room/Bed: / Admit/Disch: 03/02/21 [...] Draper, Lora RN Role Performed Anesthesiologist of Hospice Manager Hospice Manager Record Time In 03/02/21 07:33:00 03/02/21 07:33:00 [...] Yes Airway Device Na (more content not included)...[facility] PACU Recordon 50-26-1781LCZT PACU RecordD[facility] Record Summary Primary Physician: DAVID AWAD Finalized Date/Time: 03/02/21 13:11:26 Pt. Name: ZAINA WINTERS/Sex: 1950 MALE Med Rec #: [id number] Physician: DAVID AWAD Financial #: [id number] Pt. Type: D Room/Bed: [facility]/1 Admit/Disch: 03/02/21 05:52:00 - Institution: PACU Case Times MAGR Entry 1 In PACU I 03/02/21 12:07:00 Discharge from PACU 03/02/21 12:58:00 I Last Modified By: Rosy Gaxiola RN 03/02/21 12:58:08 General Comments: Pt stable. VS stable. Pain level 8/10. Report given to LESLEY Velásquez at bedside. Finalized By: Rosy Gaxiola RN Document Signatures Signed By: Rosy Gaxiola RN 03/02/21 13:11NoC[facility] Preoperative Recordon 32-23-6984XECL Preoperative RecordDIGN[facility] Pre-Op Record Summary Primary Physician: DAVID AWAD Finalized Date/Time: 03/02/21 08:24:03 Pt. Name: ZAINA WINTERS/Sex: 1950 MALE Med Rec #: [id number] Physician: DAVID AWAD Financial #: [id number] Pt. Type: D Room/Bed: / Admit/Disch: 03/02/21 [...] Signatures Signed By: Rita Molina RN 03/02/21 08:24[facility] Glucose Levelon 87-67-0977Hakukrf [Mass/Vol]177 mg/pUVcox09-083Agzyvtok96 Little StreetComment on above:Performed By: #### [id number] #### [facility] (DEFAULT) [address] [place] [address] 27216Mcgdpqj [Mass/Vol]138 mg/wNQcga34-027Kwvxbbqc[address] Comment on above:Performed By: #### [id number] ####[facility] (DEFAULT)[address] [place] [address] 50163Vkdutfn Handouton 03-02-2021 Patient HandoutPOST OPERATIVE TOTAL KNEE/HIP [...] #8 follow up in office with physician fast food sales assistant Justo Redd as scheduled #9 NOMS [...] proceed to the nearest hospital's emergency services department.[facility]ne HospitalXR Knee One or Two Views Lefton 67-10-0570EN Knee One or Two Views LeftEXAM: XR [...] Kaiser MD 03/02/21 1:56 pm Technologist: [facility]ARPome[facility]2019 Novel Coronavirus (CoVID-19), JULISSA LCon 85-64-2335WYIO-CoV-2 (COVID-19) RNA JULISSA+probe Ql (Unsp spec)Not detected Invalid Interpretation CodeNot Doctors HospitalComment on above:Order Comment: [id number] Comment: This nucleic acid amplification test was developed and its performance characteristics determined by [employer]. Nucleic acid amplification tests include RT- PCR [...] detected) result in this assay. Performed At: [address] [id number] Zay Landa PhD Ph:[phone] By: #### [id number], [id number], [id number] #### [facility] ([facility]) [address] [place] [address] 27561Rskxtotj Note - Nurseon 02-68-8216Pjcgschj Note - Nurse Pre-op call for 03-02-2021 surgery made- patient informed of arrival time of 0600 tomorrow ,NPO after midnight except for any medication that he was instructed to take in morning, hibiclens shower x2-patient with understanding. [Electronically Signed on: 03/01/2021 09:42 EST] Rita Molina RN [Verified on: 03/01/2021 09:42 EST] Tracy Rita RNWayne HospitalProgress Note - Nurseon 81-32-7612Qdhbcdnf Note - NursePAT review done per Dr. Mccauley, no orders received. [Electronically Signed on: 02/08/2021 10:37 EST] Oliva Rabago RN [Verified on: 02/08/2021 10:37 EST] Oliva Rabago RNWayne Hospital.Auto Diff 1on 29-49-6406Vhbi [place] %10 % Normal1-12[facility] HospitalComment on above:Performed By: #### [id number], 61564167, 0050016 ####[facility] (DEFAULT)[address] [place] [address] 06744Pxix Abs#0.0 d02Plrllu7.0-0.2[facility] HospitalComment on above:Performed By: #### [id number], 21932166, 1876302 ####[facility] (DEFAULT)[address] [place] [address] 95154Pawexzcrs/100 WBC (Bld)0.3 %Normal0.2-2.0[facility]uder HospitalComment on above:Performed By: #### [id number], 77145513, 8340082 ####[facility] (DEFAULT)[address] [place] [address] 32793Nes Abs# 0.1 d52Stqmmg8.0-0.4[facility] HospitalComment on above:Performed By: #### 7073938914, 25876834, 2410715 ####[facility] (DEFAULT)[address] [place] [address] 63807Lkauxdocgxn/100 WBC (Bld)1.1 %Normal0.9-4.0[facility] HospitalComment on above:Performed By: #### [id number], 73541670, 3836843 ####[facility] (DEFAULT)[address] [place] [address] 76260Dclae Abs# 2.0 z91Jtmert8.3-2.9[facility] HospitalComment on above:Performed By: #### [id number], 89235612, 8510824 ####[facility] (DEFAULT)[address] [place] [address] 39993Rondisiibbn/100 WBC (Bld)27 %Nvxklt89-96Uxcsvqqg HospitalComment on above:Performed By: #### 9669263136, 32458864, 1409414 ####[facility] (DEFAULT)[address] [place] [address] 23480Dqph Abs# 0.7 k65Fjlqfu8.0-0.8[facility] HospitalComment on above:Performed By: #### 5485297227, 05336196, 2734677 ####[facility] (DEFAULT)[address] [place] [address] 18595Qugf Abs#4.5 q13Dprgyg9.5-9.2Magrmercy health [facility] Hospital Comment on above:Performed By: #### 1151404252, 82860427, 6674550 ####[facility] (DEFAULT)[address] [place] [address] 51823Ydfvvtesbft/100 WBC (Bld)62 %Dkumfn42-94Wxcstkjt HospitalComment on above:Performed By: #### [id number], 88112752, 4559916 ####[facility] (DEFAULT)[address] [place] [address] 06919DUB Standardon 06-92-7899fMEV Non AA>60Invalid Interpretation CodeSouthwest General Health Center HospitalComment on above:Performed By: #### [id number], 69454696, 8182072 ####[facility] (DEFAULT)[address] [place] [address] 99265sSZC AA>60Invalid Interpretation CodeSouthwest General Health Center HospitalComment on above:Result Comment: Chronic Kidney disease could be indicated at eGFRs of less than 60 ml/min/1.73m2. Kidney Failure is indicated at less than 15 ml/min/1.27w6Ekguugblo By: #### [id number], 07219711, 4540434 ####[facility] (DEFAULT)[address] [place] [address] 69742Aujda gap [Moles/Vol]14.0 mmol/LNormal5.0-19.0M[facility] hospital HospitalComment on above:Performed By: #### [id number], 32093520, 8071127 ####[facility] (DEFAULT)[address] [place] [address] 86604Ouumwsm [Mass/Vol]9.5 mg/dLNormal8.9-10.3[facility] HospitalComment on above:Performed By: #### [id number], 87825657, 1412271 ####[facility] (DEFAULT)[address] [place] [address] 87205Phahyysw [Moles/Vol]99 mmol/RSig829-084Tvmwmvpr HospitalComment on above:Performed By: #### [id number], 54249066, 4146552 ####[facility] (DEFAULT)[address] [place] [address] 24454KN3 [Moles/Vol]28 mmol/JTxynyv11-16Xnfudurd Hospital Comment on above:Performed By: #### [id number], 23331749, 9533743 ####[facility] (DEFAULT)[address] [place] [address] 15272Zgrjbiwjvm [Mass/Vol] 0.89 mg/dLLow0.90-1.30[facility] hospital HospitalComment on above:Performed By: #### [id number], 93257984, 3591936 ####[facility] (DEFAULT)[address] [place] [address] 72533Uyfqcvh [Mass/Vol]135.0 mg/yXHerm76.0-118.0[facility] HospitalComment on above:Performed By: #### 9034641549, 49057023, 4441428 ####[facility] (DEFAULT)[address] [place] [address] 47325Wowumewdoz 278 mOsm/LInvalid Interpretation CodeSouthwest General Health Center HospitalComment on above:Performed By: #### [id number], 11026401, 2344592 ####[facility] (DEFAULT)[address] [place] [address] 06942Ldfcabdsy [Moles/Vol]4.1 mmol/LNormal3.6-5.1 [facility] HospitalComment on above:Performed By: #### [id number], 26856844, 1045555 ####[facility] (DEFAULT)[address] [place] [address] 94471 Sodium [Moles/Vol]137.0 mmol/FOumley690.0-144.0[facility] HospitalComment on above:Performed By: #### [id number], 05839274, 6584872 ####[facility] (DEFAULT)[address] [place] [address] 13902Lyui nitrogen [Mass/Vol]19 mg/dL Normal8-26[facility] Medical CenterComment on above:Performed By: #### [id number], 88236767, 4181352 ####[facility] (DEFAULT)[address] [place] [address] 97278Dius nitrogen/Creatinine [Mass ratio]21.0 mg/mgHigh4.6-16.2MSelect Medical Specialty Hospital - CantonComment on above:Performed By: #### [id number], 86290675, 9180937 ####[facility] (DEFAULT)[address] [place] [address] 15197JEP w/ Auto Diffon 12-47-7345Njvmotxwedc distribution width (RBC) [Ratio]13.4 %Normal 11.5-15.0[facility] Medical CenterComment on above:Performed By: #### [id number], 06274410, 4323733 ####[facility] (DEFAULT)[address] [place] [address] 08776Djnbdqumck (Bld) [Volume fraction]48.0 %Dukkpc64.8-51.9[facility] Comment on above:Performed By: #### [id number], 01839966, 6293785 ####[facility] (DEFAULT)[address] [place] [address] 86756Yquotggnjv (Bld) [Mass/Vol]15.5 g/vOUzxnus64.8-17.7[facility] HospitalComment on above:Performed By: #### 5162054977, 56897297, 9055832 ####[facility] (DEFAULT)[address] [place] [address] 42610Pggkb WBC7.3 n33Jmqyrsi Interpretation CodeSouthwest General Health Center HospitalComment on above:Performed By: #### [id number], 50204017, 2098790 ####[facility] (DEFAULT)[address] [place] [address] 53682Rjs Diff? AutoNormalSouthwest General Health Center HospitalComment on above:Performed By: #### [id number], [id number], [id number] ####[facility] (DEFAULT)[address] [place] [address] 47872TAS (RBC) [Entitic mass]30 qfMgsgqy52-72Xlbliiud HospitalComment on above:Performed By: #### [id number], [id number], [id number] ####[facility] (DEFAULT)[address] [place] [address] 93330NWYV (RBC) [Mass/Vol]32 g/dL Exbbbu54-75Tmawbfre HospitalComment on above:Performed By: #### [id number], [id number] ####[facility] (DEFAULT)[address] [place] [address] 75806TSB (RBC) [Entitic vol]94 zZDugixe92-980Utwwicul HospitalComment on above:Performed By: #### [id number], [id number], [id number] ####[facility] (DEFAULT)[address] [place] [address] [id number] o75Notfmp159-152 [facility] HospitalComment on above:Performed By: #### [id number], [id number] ####[facility] (DEFAULT)[address] [place] [address]10 Platelet mean volume (Bld) [Entitic vol]10.3 fLHigh6.3-10.2MSelect Medical Specialty Hospital [facility] Comment on above:Performed By: #### [id number], [id number] ####[facility] (DEFAULT)[address] [place] [address] 38989OOZ1.13 d52Eyrrtu 3.70-5.30University Hospitals Parma Medical CenterComment on above:Performed By: #### [id number], [id number] ####[facility] (DEFAULT)[address] [place] [address] 24459JTK5.3 i08Ugdxku1.5-10.5University Hospitals Parma Medical CenterComment on above:Performed By: #### [id number], [id number] ####[facility] (DEFAULT)[address] [place] [address] 65193NO w Culture if Ind Standardon 61-53-5571Defgtqhcuh UANormalUniversity Hospitals Parma Medical CenterComment on above:Performed By: #### [id number] #### [facility] (DEFAULT) [address] [place] [address] 38891Znonb (U)YellowNoBellevue HospitalComment on above: Performed By: #### [id number] #### [facility] (DEFAULT) [address] [place] [address] 91924Excnout?NoNormalUniversity Hospitals Parma Medical CenterComment on above:Result Comment: Result created by rule GL_MAGR_ADD_UA_CULT1 Result created by rule GL_MAGR_ADD_UA_CULT1Performed By: #### [id number] #### [facility] (DEFAULT) [address] [place] [address] 02859Xqpuqee (U) [Mass/Vol]NegativeNoBellevue Hospital Comment on above:Performed By: #### [id number] #### [facility] (DEFAULT) [address] [place] [address] 46911Lbpvcqz Ql (U)NegativeNormalMagruder HospitalComment on above:Performed By: #### [id number] #### [facility] (DEFAULT) [address] [place] [address] 44167Fqdff?Not IndicatedNormalMagruder HospitalComment on above:Result Comment: Result created by rule GL_MAGR_ADD_UA_MICROPerformed By: #### [id number] #### [facility] (DEFAULT) [address] [place] [address] 95443JQ BilirubinNegativeNormalMagruder HospitalComment on above:Performed By: #### [id number] #### [facility] (DEFAULT) [address] [place] [address] 53877SY BloodNegativeNormalNEGATIVEMagruder HospitalComment on above:Performed By: #### [id number] #### [facility] (DEFAULT) [address] [place] [address] 81607NR ClarityCLEARNormalCLEARMagruder HospitalComment on above:Performed By: #### [id number] #### [facility] (DEFAULT) [address] [place] [address] 93056AZ Leuk EstNegativeNormalNEGATIVEMagruder HospitalComment on above:Performed By: #### [id number] #### [facility] (DEFAULT) [address] [place] [address] 75825ZD NitriteNegativeNormalNEGATIVEMagruder HospitalComment on above:Performed By: #### [id number] #### [facility] (DEFAULT) [address] [place] [address] 64100TQ pH6.4Zldqic2-1Kyeylrvd HospitalComment on above: Performed By: #### [id number] #### [facility] (DEFAULT) [address] [place] [address] 30146IK ProteinNegativeNormalNEGATIVEMagruder HospitalComment on above:Performed By: #### [id number] #### [facility] (DEFAULT) [address] [place] [address] 26574EE Spec Grav>=1.956Isvtef6.001-1.035[facility] Comment on above:Performed By: #### [id number] #### [facility] (DEFAULT) [address] [place], [place] [address]KI Urobilinogen0.2 mg/dLNormal0.2-1.0[facility] Comment on above:Performed By: #### [id number] #### [facility] (DEFAULT) [address] [place] [address] 09551Rcrbt SourceClean CatchNormalUniversity Hospitals Parma Medical CenterComment on above:Performed By: #### [id number] #### [facility] (DEFAULT) [address] [place], [place] [address]NY Bone Length Studies Scanogramson 41-88-6458LM Bone Length Studies ScanogramsEXAM: XR BONE LENGTH [...] John Mckenna MD 02/08/21 7:27 am Technologist: [facility] w doppler w color complete Ordered By: Ej Foster on [id number] [facility] Transthoracic Echocardiography Report (TTE) Patient Name HEBERLING Date of Study 09/23/2020 ZAINA Morales Date of 1950 Gender Male Age 69 year(s) Race Room Number Height: 72 inch, 182.88 cm Corporate ID [id number] Weight: 288 pounds, 130.6 kg # Patient Acct [id number] BSA: 2.49 m^2 BMI: 39.06 # kg/m^2 MR # [id number] Format Proofreader Debi Lopez Interpreting Physician Ej Foster Fellow Referring Nurse Practitioner Interpreting Referring Physician Ej Foster Type of Study TTE procedure:2D Echocardiogram, M-Mode, Doppler, Color Doppler. Procedure Date Date: 09/23/2020 Start: 11:32 AM Study Location: [facility] Indications:Atrial fibrillation. History / Tech. Comments: [...] TR Velocity: 2.17 m/s Peak TR Gradient: 18.35239 mmHg Estimated RA Pressure: 3 mmHg Estimated PASP: 21.79 mmHg Diastology / Tissue Doppler Lateral Wall E' velocity:0.07 m/s Lateral Wall E/E':7.23 [employer] Work Phone: e, [facility] Incoming Cardio Results From [facility] - 09/23/2020 5:27 PM EDT [facility] Transthoracic Echocardiography Report (TTE) Patient Name HEBERLING Date of Study 09/23/2020 ZAINA D Date of 1950 Gender Male Age 69 year(s) Race Room Number Height: 72 inch, 182.88 cm Corporate ID [id number] Weight: 288 pounds, 130.6 kg # Patient Acct [id number] BSA: 2.49 m^2 BMI: 39.06 # kg/m^2 MR # [id number] Format Proofreader Debi Lopez Interpreting Physician Ej Foster Fellow Referring Nurse Practitioner Interpreting Referring Physician Ej Foster Fellow Type of Study TTE procedure:2D Echocardiogram, M-Mode, Doppler, Color Doppler. Procedure Date Date: 09/23/2020 Start: 11:32 AM Study Location: [facility] Indications:Atrial fibrillation. History / Tech. Comments: [...] TR Velocity: 2.17 m/s Peak TR Gradient: 18.06358 mmHg Estimated RA Pressure: 3 mmHg Estimated PASP: 21.79 mmHg Diastology / Tissue Doppler Lateral Wall E' velocity:0.07 m/s Lateral Wall E/E':7.23[facility] YoungstownDomino Solutions Phone: [facility] YoungstownDomino Solutions Phone: basic Metabolic Panelon 38-82-8499Cuyyg gap [Moles/Vol]10 mmol/L9 - 17 mmol/LMNationwide Children's Hospital, KYBun/Cre Irzgy62FwpjHiqoa Health- [place], KYCalcium [Mass/Vol]9.7 mg/dL8.6 - 10.4 mg/dLDoctors Hospital, [place] Chloride [Moles/Vol]101 mmol/L98 - 107 mmol/[facility], KYCO2 [Moles/Vol] 28 mmol/L20 - 31 mmol/LMNationwide Children's Hospital, KYCreatinine [Mass/Vol]0.89 mg/dL0.7 - 1.2 mg/dLDoctors Hospital, KYGFR >60>60 mL/minDoctors Hospital, KYGFR Non->60>60 mL/minDoctors Hospital, KYGlucose [Mass/Vol]101 mg/uCOuyy39 - 99 mg/dLDoctors Hospital, KYInterpretation and review of laboratory resultsAbnormalDoctors Hospital, KYPotassium [Moles/Vol]4.3 mmol/L3.7 - 5.3 mmol/[facility], KYSodium [Moles/Vol]139 mmol/L135 - 144 mmol/L [facility], KYUrea nitrogen [Mass/Vol]19 mg/dL8 - 23 mg/dLDoctors Hospital, KYLipid Panelon 82-01-7008Cqywhibwylc [Mass/Vol]162 mg/dL<200[facility], SDComment on above: Cholesterol Guidelines: <200 Desirable 200-240 Borderline >240 Undesirable Cholesterol in HDL [Mass/Vol]41 mg/dL>40[facility], SDComment on above: HDL Guidelines: <40 Undesirable 40-59 Borderline >59 Desirable Cholesterol in LDL [Mass/Vol]102 mg/dL0 - 130 mg/dLDoctors Hospital, SDComment on above: LDL Guidelines: <100 Desirable 100-129 Near to/above Desirable 130-159 Borderline >159 Undesirable Direct (measured) LDL and calculated LDL are not interchangeable tests. Cholesterol in VLDL [Mass/Vol]NOT REPORTED1 - 30 mg/dLDoctors Hospital, [place] Cholesterol.total/Cholesterol in HDL [Mass ratio]4 {ratio}<5[facility], [place] Triglyceride [Mass/Vol]97 mg/dL<150[facility], KYComment on above: Triglyceride Guidelines: <150 Desirable 150-199 Borderline 200-499 High >499 Very high Based on AHA Guidelines for fasting triglyceride, November 2011. Metabolic Panelon 45-82-7101AWV/1.73 sq M predicted among non-blacks MDRD (S/P/Bld) [Vol rate/Area][facility], SDComment on above:Stage 1: Some kidney damage normal [...] body mass. Additional eGFR calculator available at: http://www.Skyscanner/multiple_crcl_2012.htm Basic Metabolic Panelon 46-91-8299Kgnwh gap [Moles/Vol]9 mmol/L9 - 17 mmol/L [facility], KYBun/Cre Nieoj51AoflfDoctors Hospital, KYCalcium [Mass/Vol]9.6 mg/dL8.6 - 10.4 mg/dLDoctors Hospital, KYChloride [Moles/Vol]101 mmol/L98 - 107 mmol/LMNationwide Children's Hospital, KYCO2 [Moles/Vol]29 mmol/L20 - 31 mmol/LMNationwide Children's Hospital, KYCreatinine [Mass/Vol]0.76 mg/dL0.7 - 1.2 mg/dLDoctors Hospital, KYGFR >60>60 mL/minDoctors Hospital, KYGFR Non->60>60 mL/minDoctors Hospital, KYGlucose [Mass/Vol]118 mg/jBMzcf86 - 99 mg/dLDoctors Hospital, KYInterpretation and review of laboratory resultsAbnormalDoctors Hospital, KYPotassium [Moles/Vol]4.7 mmol/L3.7 - 5.3 mmol/LMCoward, KYSodium [Moles/Vol]139 mmol/L135 - 144 mmol/LMNationwide Children's Hospital, SDUrea nitrogen [Mass/Vol]12 mg/dL8 - 23 mg/dLDoctors Hospital, SDCBCon 40-39-4196Lmiuwctfzjd distribution width (RBC) [Ratio]14.2 %11.8 - 14.4 %[place], [place] Hematocrit (Bld) [Volume fraction]43.4 %40.7 - 50.3 %[place], [place] Hemoglobin (Bld) [Mass/Vol]13.4 g/dL13 - 17 g/dLGreenwood, KYMCH (RBC) [Entitic mass]28.9 pg25.2 - 33.5 pgGreenwood, KYMCHC (RBC) [Mass/Vol]30.9 g/dL28.4 - 34.8 g/dLGreenwood, KYMCV (RBC) [Entitic vol]93.7 fL82.6 - 102.9 fLGreenwood, KYPlatelet mean volume (Bld) [Entitic vol]9.9 fL8.1 - 13.5 fLGreenwood, KYPlatelets (Bld) [#/Vol]217 10*3/[facility], SDRBC (Bld) [#/Vol]4.63 10*6/uL4.21 - 5.77 m/[place], KYWBC (Bld) [#/Vol]0.0 10*3/uL0.0 per 100 WBCGreenwood, KYWBC (Bld) [#/Vol]5.7 10*3/[facility], [facility]O Complete 2D W Doppler W Coloron [id number] SAMARITAN HOSPITAL Transthoracic Echocardiography Report (TTE) Patient Name HEBERLING Date of Study 01/22/2020 ZAINA Morales Date of 1950 Gender Male Age 69 year(s) Race Room Number Height: 73 inch, 185.42 cm Corporate ID [id number] Weight: 273 pounds, 123.8 kg # Patient Acct [id number] BSA: 2.46 m^2 BMI: 36.02 # kg/m^2 MR # [id number] Format Proofreader Nini Todd Interpreting Physician Ej Foster Fellow Referring Nurse Practitioner Interpreting Referring Physician Ej Foster Type of Study TTE procedure:2D Echocardiogram, M-Mode, Doppler, Color Doppler.Procedure Date Date: 01/22/2020 Start: 09:22 AM Study Location: [facility] Indications:Atrial fibrillation, Dyspnea/SOB and History of [...] Lateral Wall E' velocity:0.11 m/s Lateral Wall E/E':6.91[facility], Abdirahman Bruce Incoming Cardio Results From [facility] - 01/22/2020 5:08 PM EST [facility] Transthoracic Echocardiography Report (TTE) Patient Name SINGH Date of Study 01/22/2020 ZAINA Morales Date of 1950 Gender Male Age 69 year(s) Race Room Number Height: 73 inch, 185.42 cm Corporate ID [id number] Weight: 273 pounds, 123.8 kg # Patient Acct [id number] BSA: 2.46 m^2 BMI: 36.02 # kg/m^2 MR # [id number] Format Proofreader PerezNini Interpreting Physician Ej Foster Fellow Referring Nurse Practitioner Interpreting Referring Physician Ej Foster Fellow Type of Study TTE procedure:2D Echocardiogram, M-Mode, Doppler, Color Doppler. Procedure Date Date: 01/22/2020 Start: 09:22 AM Study Location: [facility] Indications:Atrial fibrillation, Dyspnea/SOB and History of [...] Lateral Wall E' velocity:0.11 m/s Lateral Wall E/E':6.91[facility] [employer], HS PharmaceuticalsHemoglobin A1Con 19-96-5049Udpjhwo [Mass/Vol]123 mg/dLMercy Health- [place], KYComment on above:The ADA and AACC recommend providing the estimated average glucose result to permit better patient understanding of their HBA1c result. HbA1c (Bld) [Mass fraction]5.9 %4 - 6 %[place], KYMetabolic Panelon 05-35-8945CFQ/1.73 sq M predicted among non-blacks MDRD (S/P/Bld) [Vol rate/Area][place], KYCombrighton hospital on above:Stage 1: Some kidney damage [...] body mass. Additional eGFR calculator available at: http://www.Skyscanner/multiple_crcl_2012.htm Troponin Ion 72-10-4518Sjhbmzph I.cardiac [Mass/Vol]NOT REPORTEDGreenwood, KYTrsouth pittsburg hospitalnin T.cardiac [Mass/Vol]NOT REPORTED<0.03 ng/mLGreenwood, [place] Troponin, High Dvncfcfkoiu83 ng/L0 - 22 ng/LMercy Lobelville, KYComment on above: High Sensitivity Troponin values cannot be compared with other Troponin methodologies. Patients with high levels of Biotin oral intake (i.e >5mg/day) may have falsely decreased Troponin levels. Samples collected within 8 hours of biotin intake may require additional information for diagnosis. BNPon 40-26-4829Gvwazdsqvoe peptide B (Bld) [Mass/Vol]595.0 pg/mLNormal<=900.0 The [facility] HospitalComment on above:Performed By: #### TROP, BNP, CMP, CRP #### [facility] [address] [place] [address] Cheryl KarenCBC AUTO DIFFon 55-88-9263Dlhwhdqou (Bld) [#/Vol]0.0 103/ulNormal 0.0-0.1The [facility] HospitalComment on above:Performed By: #### CBC #### [facility] [address] [place] [address] Cheryl KarenBasophils/100 WBC (Bld)0.1 %Critically low0.2-2.0The [facility] HospitalComment on above:Performed By: #### CBC #### [facility] [address] [place] [address] Cheryl KarenEosinophils (Bld) [#/Vol]0.0 103/ulNormal0.0-0.7The [facility] HospitalComment on above:Performed By: #### CBC #### [facility] [address] [place] [address] Cheryl KarenEosinophils/100 WBC (Bld)0.0 %Critically low0.9-7.0The [facility] HospitalComment on above:Performed By: #### CBC #### [facility] [address] [place] [address] Cheryl KarenErythrocyte distribution width (RBC) [Ratio]12.9 %Rkfljp61.0-15.0The [facility] HospitalComment on above:Performed By: #### CBC #### [facility] [address] [place] [address] Cheryl KarenHematocrit (Bld) [Volume fraction]45.2 %Ohjuth71.0-54.0The [facility] HospitalComment on above:Performed By: #### CBC #### [facility] [address] [place] [address] Cheryl KarenHemoglobin (Bld) [Mass/Vol]15.1 g/sDKgbmxe51.0-18.0The [facility] HospitalComment on above:Performed By: #### CBC #### [facility] [address] [place] [address] Cheryl KarenIG #0.06 10e3/ulCritically high0.00-0.03The [facility] HospitalComment on above:Performed By: #### CBC #### [facility] [address] [place] [address] Cheryl KarenIG %0.6 %Critically high0.0-0.5The [facility] HospitalComment on above:Performed By: #### CBC #### [facility] [address] [place] [address] Cheryl KarenLymphocytes (Bld) [#/Vol]1.0 103/ulCritically low1.2-3.8The [facility] HospitalComment on above:Performed By: #### CBC #### [facility] [address] [place] [address] Cheryl KarenLymphocytes/100 WBC (Bld)10.1 %Critically low20.5-60.0The [facility] HospitalComment on above:Performed By: #### CBC #### [facility] [address] [place] [address] Cheryl KarenMANUAL DIFF REQNONormalThe [facility] HospitalComment on above: Performed By: #### CBC #### [facility] [address] [place] [address] Cheryl KarenMCH (RBC) [Entitic mass]30.0 nuXxoblk43.9-34.0[facility] Comment on above:Performed By: #### CBC #### [facility] [address] [place] [address] Cheryl KarenMCHC (RBC) [Mass/Vol]33.4 g/dLGmqcwv28.9-35.2[facility] Comment on above:Performed By: #### CBC #### [facility] [address] [place] [address] Cheryl KarenMCV (RBC) [Entitic vol]89.7 vTJyuubn32.0-94.0[facility] Comment on above:Performed By: #### CBC #### [facility] [address] [place] [address] Cheryl KarenMonocytes (Bld) [#/Vol]0.3 103/ulNormal0.3-0.8ThOhio State Harding Hospital Comment on above:Performed By: #### CBC #### [facility] [address] [place], [place] [address] Cheryl KarenMonocytes/100 WBC (Bld)3.4 %Normal1.7-12.0[facility] Comment on above:Performed By: #### CBC #### [facility] [address] [place] [address] Cheryl KarenNeutrophils (Bld) [#/Vol]8.3 103/ulCritically high1.4-6.5The [facility] HospitalComment on above:Performed By: #### CBC #### [facility] [address] [place] [address] Cheryl KarenNeutrophils/100 WBC (Bld)85.8 %Critically high43.0-75.0The [facility] HospitalComment on above:Performed By: #### CBC #### [facility] [address] [place] [address] Cheryl KarenPlatelet mean volume (Bld) [Entitic vol]9.7 fLNormal9.5-13.5The [facility] HospitalComment on above:Performed By: #### CBC #### [facility] [address] [place] [address] Cheryl KarenPlatelets (Bld) [#/Vol]270 103/kcQaxsgs131-554Eju [facility] Comment on above:Performed By: #### CBC #### [facility] [address] [place] [address] Cheryl KarenRBC (Bld) [#/Vol]5.04 106/ulNormal4.70-6.10[facility] Comment on above:Performed By: #### CBC #### [facility] [address] [place] [address] Cheryl KarenWBC (Bld) [#/Vol]9.7 103/ulNormal4.0-11.0The [facility] Comment on above:Performed By: #### CBC #### [facility] [address] [place] [address] Cheryl KarenCRPon 79-40-7697UUS [Mass/Vol]12.3 mg/dLCritically high<=1.0The [place] HospitalComment on above:Performed By: #### CBC #### [facility] [address] [place], [place] [address] Cheryl MenaenCTA CHEST WO W CONon 01-11-1722DKQ CHEST WO W CONCTA CHEST WO W [...] Electronically authenticated by: RUPESH ULRICH Date: 2019-12-16 05:43NormParkwood HospitalD-DIMERon 97-13-7002Y-DIMER COMMENTSSEE BELOWHighland District HospitalComment on above:Result Comment: Increases in D-Dimer concentration [...] hospitalization.Performed By: #### DDIM, PT, PTT #### [facility] [address] [place], [place] [address] Cheryl SrinivasanFibrin D-dimer FEU IA (Bld) [Mass/Vol]0.84 ug/mLCritically high 0.19-0.50The [facility] HospitalComment on above:Result Comment: test repeated critcal value verifiedPerformed By: #### DDIM, PT, PTT #### [facility] [address] [place] [address] Cheryl KarenLACTATE/LACTIC ACIDon 33-97-4526Nzwncjz [Moles/Vol]1.8 mmol/LNormal 0.7-2.0The [facility] HospitalComment on above:Performed By: #### LACT #### [facility] [address] [place] [address] Cheryl KarenPROF 14(COMP METB)on 03-85-0639Ddvtdka [Mass/Vol]3.2 g/dLCritically low3.5-5.0The [facility] HospitalComment on above:Performed By: #### TROP, BNP, CMP, CRP #### [facility] [address] [place] [address] Cheryl KarenAlbumin/Globulin [Mass ratio]0.8 {ratio}NormalHolmes County [facility] Comment on above:Performed By: #### TROP, BNP, CMP, CRP #### [facility] [address] [place] [address] Cheryl KarenALP [Catalytic activity/Vol]85 U/MVdfome23-893SpgHolmes County Joel [facility] Comment on above:Performed By: #### TROP, BNP, CMP, CRP #### [facility] [address] [place] [address] Cheryl KarenALT [Catalytic activity/Vol]63 U/YAayzgi29-46Ygr [facility] Comment on above:Performed By: #### TROP, BNP, CMP, CRP #### [facility] [address] [place] [address] Cheryl KarenAnion gap [Moles/Vol]14.2 mmol/LNormalThe [facility] HospitalComment on above:Performed By: #### TROP, BNP, CMP, CRP #### [facility] [address] [place] [address] Cheryl KarenAST [Catalytic activity/Vol]53 U/MQpwlto58-75Fyd [facility] Comment on above:Performed By: #### TROP, BNP, CMP, CRP #### [facility] [address] [place] [address] Cheryl KarenBilirubin Ql (U)1.0 mg/dLNormal0.2-1.3The [facility] HospitalComment on above:Performed By: #### TROP, BNP, CMP, CRP #### [facility] [address] [place] [address] Cheryl KarenCalcium [Mass/Vol]9.0 mg/dLNormal8.4-10.2[facility] Comment on above:Performed By: #### TROP, BNP, CMP, CRP #### [facility] [address] [place] [address] Cheryl KarenChloride [Moles/Vol]96 mmol/LCritically tlj39-022FvfHolmes County Joel Pomerene Memorial HospitalComment on above:Performed By: #### TROP, BNP, CMP, CRP #### [facility] [address] [place] [address] Cheryl KarenCO2 [Moles/Vol]25.8 mmol/KRvsffn48.0-30.0[facility] Comment on above:Performed By: #### TROP, BNP, CMP, CRP #### [facility] [address] [place] [address] Cheryl KarenCreatinine [Mass/Vol]0.90 mg/dLNormal0.66-1.25The [facility] Comment on above:Performed By: #### TROP, BNP, CMP, CRP #### [facility] [address] [place] [address] Cheryl KarenEGFR-AF SCOTTISH>60Normal>=60The [facility] HospitalComment on above: Performed By: #### TROP, BNP, CMP, CRP #### [facility] [address] [place] [address] Cheryl KarenEGFR-NON AF SCOTTISH>60Normal>=60The [facility] HospitalComment on above:Performed By: #### TROP, BNP, CMP, CRP #### [facility] [address] [place], [place] [address] Cheryl KarenGlobulin (S) [Mass/Vol]4.1 g/dLNormalThOhio State Harding HospitalComment on above:Performed By: #### TROP, BNP, CMP, CRP #### [facility] [address] [place] [address] Cheryl KarenGlucose [Mass/Vol]146 mg/dLCritically ekqs73-488Jxo Children's Hospital for Rehabilitationment on above:Performed By: #### TROP, BNP, CMP, CRP #### [facility] [address] [place] [address] Cheryl KarenPotassium [Moles/Vol]4.0 mmol/LNormal3.4-5.0The [facility] Comment on above:Performed By: #### TROP, BNP, CMP, CRP #### [facility] [address] [place] [address] Cheryl KarenProtein [Mass/Vol]7.3 g/dLNormal6.1-8.2The [facility]'s Hospital for Rehabilitationment on above:Performed By: #### TROP, BNP, CMP, CRP #### [facility] [address] [place] [address] Cheryl KarenSodium [Moles/Vol]132 mmol/LCritically jwd042-501Qeo [facility] on above:Performed By: #### TROP, BNP, CMP, CRP #### [facility] [address] [place] [address] Cheryl KarenUrea nitrogen [Mass/Vol]18.0 mg/dLNormal9.0-20.0The [facility]'s Hospital for Rehabilitationment on above:Performed By: #### TROP, BNP, CMP, CRP #### [facility] [address] [place] [address] Cheryl KarenUrea nitrogen/Creatinine [Mass ratio]20.0 mg/mgNormMercy Health Allen Hospitale [facility] HospitalCombrighton hospital on above:Performed By: #### TROP, BNP, CMP, CRP #### [facility] [address] [place] [address] Cheryl KarenPROTIMEon 71-53-2159AGA Coag (PPP) [Relative time]0.97 {INR}Normal The [facility] HospitalCombrighton hospital on above:Performed By: #### DDIM, PT, PTT #### [facility] [address] [place] [address] Cheryl KarenPT Coag (PPP) [Time]PLEASE NOTE: NORMAL RANGE CHANGE 10-31-2013 DUE TO [address]AGENT [address] CHANGEHighland District HospitalComment on above:Performed By: #### DDIM, PT, PTT #### [facility] [address] [place] [address] Cheryl KarenPT Coag (PPP) [Time]10.3 sNormal9.0-11.6[facility] on above:Performed By: #### DDIM, PT, PTT #### [facility] [address] [place] [address] Cheryl KarenPT Coag (PPP) [Time]SEE BELOWHighland District HospitalComment on above:Result Comment: DESIRED INR: 2.0 - 3.0 CONDITIONS NOT LISTED BELOW 2.5 - 3.5 FOR PROSTHETIC HEART VALVE REPLACEMENT 2.5 - 3.5 RECURRENT THROMBOSIS Performed By: #### DDIM, PT, PTT #### [facility] [address] [place] [address] Cheryl KarstanleyPTTon [id number] Coag (Bld) [Time]PLEASE NOTE: NORMAL RANGE CHANGE 01-07-2015 DUE TO REAGENT LOT CHANGEHighland District HospitalCombrighton hospital on above:Performed By: #### DDIM, PT, PTT #### [facility] [address] [place] [address] Cheryl KarenaPTT Coag (Bld) [Time]26.0 yXsgfhh23.3-36.2[facility] Comment on above:Performed By: #### DDIM, PT, PTT #### [facility] [address] [place] [address] Cheryl KarenRapid Covid-19 PCRon 53-32-0660Xizaojup LDT InfoSEE [facility] on above:Result Comment: This test is not yet approved or cleared by the [place] Food and Drug Administration (FDA) . This test was developed by [employer], [place]. The performance character istics of this test were validated by [facility]. The results are not intended to be used as the sole means for clinical diagnosis or patient management decisions. [facility] is authorized under Clinical Laboratory Improvement Amendments (CLIA) to perform high-complexity testing. When diagnostic testing is negative, the possibility of a false negative should be considered in the context of a patients recent exposures and the presence of clinical signs and symptoms consistent with SARS-CoV-2.Performed By: #### CVDRPD #### [facility] [address] [place] [address] Cheryl MenaXrlhyHASK-JhA-4OWFHDRBTUZX DETECTEDThe [facility]Combrighton hospital on above: Result Comment: .Performed By: #### CVDRPD #### [facility] [address] [place] [address] Cheryl KarenTROPONIN - Ion 20-22-7740Jcxzcoci I.cardiac [Mass/Vol]ng/mLNormal <=0.034[facility] HospitalComment on above:Performed By: #### CBC #### [facility] [address] [place] [address] Cheryl KarenTroponin I.cardiac [Mass/Vol]SEE BELOWNormalThe [facility] Comment on above:Result Comment: <0.034 ng/ml NEGATIVE 0.034-0.119 INDETERMINATE 0.120 AMI CUT OFFPerformed By: #### CBC #### [facility] [address] [place] [address] Cheryl Srinivasan Vital Signs Date TimeVital SignValuePerforming LhvylpfywTqxfiebp70-56-6065 12:54-0400Body wotwdz639.6 [facility]iasara Castillo DENTAL TECH Work Phone: [facility] HospitalGjynupappv32-30-9720 12:54-0400Body mass index (BMI) [Ratio]42.08 kg/f7JgokzKenia Castillo DENTAL TECH Work Phone: [facility] HospitalUbkbyfhmji60-30-0181 12:54-0400Body jigfll320.8 kgKenia Castillo DENTAL TECH Work Phone: [phone] [place] [address]-06-2025 12:54-0400Diastolic blood mm[Hg]Kenia Castillo DENTAL TECH Work Phone: [phone] [place] [address]-06-2025 12:54-0400Heart rate78 /min Kenia Castillo DENTAL TECH Work Phone: [phone] [place] [address]-06-2025 12:54-0400Respiratory rate18 /minSsara Castillo DENTAL TECH Work Phone: [phone] [place] [address]-06-2025 12:54-9612YwB2% (BldA) [Mass fraction]98 %Kenia Castillo DENTAL TECH Work Phone: [phone] [place] [address]-06-2025 12:54-0400Systolic blood fcgcdyza217 mm[Hg]Kenia Castillo DENTAL TECH Work Phone: [phone] [place], [place] 5541307-22-2025 12:54-0400Body uoxptn699.6 cmSteven Carmine DPM Work Phone: [phone] [place], [place] 2750307-22-2025 12:54-0400Body mass index (BMI) [Ratio]43.51 kg/q0Oefiob Rusher DPM Work Phone: [phone] [place] [address]-22-2025 12:54-0400Body oipcdn778.52 kgStevstanley Kendallher DPM Work Phone: [phone] [place], [place] 2750305-27-2025 13:53-0400Body sbesyj701.6 Parris Castillo DENTAL TECH Work Phone: [phone] [place] [address]-27-2025 13:53-0400Body mass index (BMI) [Ratio]43.51 kg/e5YisdsKenia Castillo DENTAL TECH Work Phone: [phone] [place] [address]-27-2025 13:53-0400Body .52 kgKenia Castillo DENTAL TECH Work Phone: [phone] [place] [address]-27-2025 13:53-0400Diastolic blood kodfwldc03 mm[Hg]Kenia Castillo DENTAL TECH Work Phone: [phone] [place] [address]-27-2025 13:53-0400Heart rate61 /min Kenia Csatillo DENTAL TECH Work Phone: [phone] [place], [place] [address]Gfuhmojlgr05-44-0945 13:53-0527JmK0% (BldA) [Mass fraction]96 %Kenia Castillo DENTAL TECH Work Phone: 1([phone] [place], [place] [address]Caimzjmmbh88-46-9844 13:53-0400Systolic blood mm[Hg]Kenia Castillo DENTAL TECH Work Phone: [phone] [place], [place] [address]Eyiuqaogex14-54-9911 13:54-0400Body skuyvo991.6 Parris Castillo DENTAL TECH Work Phone: [phone] [place], [place] [address]Dwbenjuvqx94-90-4859 13:54-0400Body mass index (BMI) [Ratio]42.69 kg/e6DahktKenia Castillo DENTAL TECH Work Phone: [phone] [place], [place] [address]Fmzpvpdpaf80-54-5500 13:54-0400Body temperature 98.91 [degF]Kenia Castillo DENTAL TECH Work Phone: [phone]04-07-2025 13:54-0400Body svvnxe023.8 kgKenia Castillo DENTAL TECH Work Phone: [phone] [place], [place] [address]Bgtvjgsiff33-72-9935 13:54-0400Diastolic blood efypgkzi58 mm[Hg]Kenia Castillo DENTAL TECH Work Phone: 1([phone] [place], [place] [address]Zlfknhwtbz83-73-9301 13:54-0400Heart rate68 /min Kenia Castillo DENTAL TECH Work Phone: [phone] [place], [place] [address]Jbiksmmctf62-73-2015 13:54-1192DnA3% (BldA) [Mass fraction]94 %Kenia Castillo DENTAL TECH Work Phone: [phone] [place], [place] [address]Wuqkpflkgx11-85-5486 13:54-0400Systolic blood gryvzsbg864 mm[Hg]Kenia Castillo DENTAL TECH Work Phone: [phone] HospitalPlhlakklki78-68-4733 12:30-0500Diastolic blood kwgoaapo92 mm[Hg]Ej Foster MD Work Phone: [facility]01-10-2025 12:30-0500Heart rate57 /minEj Foster MD Work Phone: [facility]01-10-2025 12:30-0500 Respiratory rate17 /minEj Foster MD Work Phone: [facility]01-10-2025 12:30-0682LyQ5% (BldA) [Mass fraction]96 %Ej Foster MD Work Phone: [facility]01-10-2025 12:30-0500Systolic blood mxsflkui491 mm[Hg]Ej Foster MD Work Phone: [facility]01-10-2025 12:11-0500Body cxqvjeicbbt47.8 [degF]Ej Foster MD Work Phone: [facility]01-07-2025 14:13-0500Body wpryvd379.6 Parris Castillo DENTAL TECH Work Phone: [facility] HospitalYtsugvcmew96-45-3859 14:13-0500Body mass index (BMI) [Ratio]43.07 kg/r9XvxneKenia Castillo DENTAL TECH Work Phone: [facility] HospitalSlvkmhrxsa27-53-2071 14:13-0500Body vukmac179.07 kgKenia Castillo DENTAL TECH Work Phone: [facility] HospitalZnlnjwnyuv45-07-6695 14:13-0500Diastolic blood cufxzkho07 mm[Hg]Kenia Castillo DENTAL TECH Work Phone: [facility] HospitalYfftvfbthv16-17-1712 14:13-0500Heart rate98 /min Kenia Castillo DENTAL TECH Work Phone: [facility] HospitalUwbuxhdsll02-61-9929 14:13-9664FoQ1% (BldA) [Mass fraction]95 %Kenia Cordonjtvictor manuel DENTAL TECH Work Phone: [facility] HospitalYktbnojsdd20-35-4671 14:13-0500Systolic blood gdvvcugz481 mm[Hg]Kenia Cordonayush DENTAL TECH Work Phone: [facility] HospitalNlwsmcoxnf30-62-7564 14:54-0500Body wozhup891.[address]12-23-2024 14:54-0500Body mass index (BMI) [Ratio]41.88 kg/m[address]12-23-2024 14:54-0500Body weight 140.[address]12-23-2024 14:54-0500Diastolic blood rtdranuk54 mm[Hg][address]12-23-2024 14:54-0500Systolic blood zxeravqt439 mm[Hg][address]11-12-2024 13:04-0500Body mass index (BMI) [Ratio]38.92 kg/b2Sobqhpl Evangelista DENTAL TECH Work Phone: [phone] [place], [place] [address]Phxbdnfxaf91-78-6981 13:04-0500Body temperature 97.39 [degF]Jeannine Rodríguezzpatrick DENTAL TECH Work Phone: 1([phone])937-[address] [place] [address]-12-2024 13:04-0500Body .81 kgChristy Evangelista DENTAL TECH Work Phone: [phone] [place], [place] [address]Opcymvipaq83-92-0326 13:04-0500Diastolic blood abjxptaw07 mm[Hg]Jeannine Evangelista DENTAL TECH Work Phone: [phone] [address]Pviiutrvkn80-73-8839 13:04-0500Systolic blood cnowuqjz387 mm[Hg]Jeannine Evangelista DENTAL TECH Work Phone: [phone] [place], [place] [address]Xqclffyqfo96-45-8006 12:53-0400Body .4 cmSteven Rusher DPM Work Phone: [phone] HospitalHeqxmgzqng62-25-4615 12:53-0400Body mass index (BMI) [Ratio]40.13 kg/g7Bosudt Rusher DPM Work Phone: [phone] HospitalYzbclnzddm45-06-6677 12:53-0400Body xhaidx131.98 kgSteven Rusher DPM Work Phone: 1(419)332-[address] [place] [address]-28-2024 08:58-0400Body mass index (BMI) [Ratio]40.13 kg/u8BjuqeKenia Castillo DENTAL TECH Work Phone: [facility] HospitalFuzwsuemuj09-07-3132 08:58-0400Body temperature 96.69 [degF]Kenia Castillo DENTAL TECH Work Phone: [facility] HospitalXitgohjaji45-47-1819 08:58-0400Body waxics415.98 kgKenia Castillo DENTAL TECH Work Phone: [place] [address]Xaqyjxmkkr95-40-3890 08:58-0400Diastolic blood iktnaomq65 mm[Hg]Kenia Castillo DENTAL TECH Work Phone: [place] [address]Qjgmgxtuic73-94-2998 08:58-0400Heart rate67 /min Kenia Castillo DENTAL TECH Work Phone: [facility] HospitalFblxvvoskk89-50-2691 08:58-2835ZxF2% (BldA) [Mass fraction]95 %Kenia Castillo DENTAL TECH Work Phone: [facility] HospitalSxufmhffhd31-82-0993 08:58-0400Systolic blood mm[Hg]Kenia Castillo DENTAL TECH Work Phone: [facility] HospitalZgbhhgpjir71-37-6873 09:31-0500Pulse Jrsqhwqf23 % [facility], QT23-79-4753 09:30-0500BP Uwnrmcuct79 mm[Hg]Ej [facility], DO44-28-8066 09:30-0500BP Glhhibpu964 mm[Hg]Ej [facility], ZU47-90-3517 09:30-0500Pulse (Heart Rate)56 /minAli [facility], HJ96-48-2017 09:30-0500Respiratory Rate22 /min[facility], BG51-24-7441 07:14-0500BMI (Body Mass Index)36.89 kg/m2[facility], VU56-96-7727 07:14-0500Body ghrsno654.[address] [facility], GE47-23-7387 07:14-1892Emzwvh102.9 Rashida [facility], [place] Encounters Encounter DateEncounter TypeCare ProviderFacilityStart: 11-18-2024 End: 96-12-6690qpjfyqgwnkTzzkbnnCheyanne Guillen MDFacility:[facility] Start: 10-07-2024 End: 28-03-1924omutyemadaVhowwyjs Brink PTANOMS Maurisio Physical TherapyComment on above:Spinal stenosis, lumbar region with neurogenic claudication (Primary Dx); Bilateral leg weakness; Left thigh painStart: 10-07-2024 End: 11-63-7304Oyzsfx flowsheetMarshall Brink PTANOMS [facility] Start: 10-07-2024 End: 19-97-8021Lfzmba flowsheetMarshall Brink PTANOMS [facility] Start: 2024 End: 33-00-0275Iawygi flowsheetMelissa Kelbley PTANOMS [facility] Start: 2024 End: 48-38-6681Zolbad flowsheetMelissa Kelbley PTANOMS [facility] Start: 2024 End: 94-60-3294mefdgvtfqgFpceqkl Kelbley PTANOMS [facility] Physical TherapyComment on above:Spinal stenosis, lumbar region with neurogenic claudication (Primary Dx); Bilateral leg weakness; Left thigh painStart: 09-26-2024 End: 94-34-0423hwmpeklslcBtdgwgi Kelbley PTANOMS [facility] Physical TherapyComment on above:Spinal stenosis, lumbar region with neurogenic claudication (Primary Dx); Bilateral leg weakness; Left thigh painStart: 09-26-2024 End: 62-93-7021Xnylvv flowsheetMelissa Kelbley PTANOMS [facility] Start: 09-26-2024 End: 61-14-4188Nqgksq flowsheetMelissa Kelbley PTANOMS [facility] Start: 09-23-2024 End: 33-25-6894yvujhbbrzaOlzepko Kelbley PTANOMS [facility] Physical TherapyComment on above:Spinal stenosis, lumbar region with neurogenic claudication (Primary Dx); Bilateral leg weakness; Left thigh painStart: 09-23-2024 End: 50-11-2487Qmtilx flowsheetMelraine Gregoriobley PTANOMS [facility] Start: 09-23-2024 End: 94-26-3404Atiwbl flowsheetMelraine Latham PTANOMS [facility] Start: 09-19-2024 End: 53-73-8843Hjiqlb flowsheetMony Sharpe PTANOMS [facility] Start: 09-19-2024 End: 30-83-4305Suroem flowsheetMony Sharpe PTANOMS [facility] Start: 09-19-2024 End: 76-52-7993uerwgijsupEyzavtrt Brink PTANOMS [facility] Physical TherapyComment on above:Spinal stenosis, lumbar region with neurogenic claudication (Primary Dx); Bilateral leg weakness; Left thigh painStart: 09-18-2024 End: 82-90-2461Zhdsfpjeremiah Castillo DENTAL TECH Work Phone: [facility] MedicineStart: 09-18-2024 End: 89-96-1748Qzcfdwjeremiah Castillo DENTAL TECH Work Phone: [facility] MedicineStart: 09-18-2024 End: 11-54-7226Tvpfuj outpatient visit 25 minutesSatim Castillo DENTAL TECH Work Phone: [facility] HospitalComment on above:Primary hypertension (Primary Dx); Type 2 diabetes mellitus with diabetic peripheral angiopathy without gangrene, without long-term current use of insulin (HCC); Benign prostatic hyperplasia with lower urinary tract symptoms, symptom details unspecified; Paroxysmal atrial fibrillation (HCC); Morbid (severe) obesity due to excess calories ([facility]-HCC)Start: 09-18-2024 End: 85-27-2000gztfnwpjwxSRNLV KAMPFERNot AvailableStart: 09-16-2024 End: 91-77-7655oukreogbpxKoavznvo Brink PTANOMS [facility]io Physical TherapyComment on above:Spinal stenosis, lumbar region with neurogenic claudication (Primary Dx); Bilateral leg weakness; Left thigh painStart: 09-16-2024 End: 97-99-5079Cnqkwd flowsGio RINCON [facility] Start: 09-16-2024 End: 62-04-7127Oozhfg flowsGio RINCON [facility] Start: 09-09-2024 End: 07-55-9650bnowrwvgqdWephrsz Kelbley PTANOMS [facility] Physical TherapyComment on above:Spinal stenosis, lumbar region with neurogenic claudication (Primary Dx); Bilateral leg weaknessStart: 09-09-2024 End: 73-64-1183Hsvogt flowsheetMaddie RINCON [facility] Start: 09-09-2024 End: 09-39-4909Lafjxc flowsheetMaddie RINCON [facility] Start: 09-03-2024 End: 49-05-8247Brntce flowsheetSteven A Rusher DPM Work Phone: [facility] PODIATRYStart: 09-03-2024 End: 27-84-0758Oyleqp flowsheetSteven A Rusher DPM Work Phone: [facility] PODIATRYStart: 09-03-2024 End: 98-82-4713Sjijord encounter procedureSteven A Rusher DPM Work Phone: noSA[facility] PODIATRYComment on above:Dermatophytosis of nail (Primary Dx); Dystrophic nail; Pain around toenail, right foot; Pain around toenail, left footStart: 09-03-2024 End: 82-57-3468sdmfxeitctNCJELH A RUSHERNot AvailableStart: 08-30-2024 End: 85-58-4176Ipdgsc flowsheetSammantha Argueta PTNOMS CI PTStart: 08-30-2024 End: 19-12-3855Qnmukh flowsheetSammantha Argueta PTNOMS CI PTStart: 08-30-2024 End: 93-36-9893hdduwnygalPmjdyovll Argueta PTNOMS CI PTComment on above:Spinal stenosis, lumbar region with neurogenic claudication (Primary Dx); Bilateral leg weaknessStart: 08-15-2024 End: 76-55-4612Syfqvmlou encounterSveena Argueta PTNOMS CI PTComment on above:PT Initial Eval (Spinal Stenosis/ b/l leg weakness); Call Back; Call Back x2 (He contacted and scheduled 08/30/24 for PT Eval w/ Leroy Argueta, PT.)Start: 08-05-2024 End: 69-56-3860woudbdroklCayuwrv Lisa Guillen MDFacility:[facility] Start: 07-23-2024 End: 40-82-6278Kddqsc-up Feliciano Castillo NP Work Phone: N[facility] FNR FMStart: 07-23-2024 End: 80-41-5598Ejwowcpsh encounterBernie Adam MD Work Phone: NOM[facility] FNR FMStart: 07-22-2024 End: 17-73-8663Dphfbr Maxine Castillo DENTAL TECH Work Phone: NOCW FNR FMComment on above:Decreased renal function Start: 07-09-2024 End: 80-66-5484Mziebs flowsJaren Castillo DENTAL TECH Work Phone: NOZW FNR FMStart: 07-09-2024 End: 34-90-3590Tuukpe flowsJaren Castillo DENTAL TECH Work Phone: noms FNR FMStart: 07-09-2024 End: 68-47-6529Oixiws outpatient visit 25 minutesSatim Castillo NP Work [...] of left foot without tophusStart: 07-09-2024 End: 69-39-8667Vvnbynbrz encounterSarah Kamjtvictor manuel DENTAL TECH Work Phone: NOM[facility] FNR FMStart: 07-09-2024 End: 74-92-5170cmzzpqbwgjKDEVX KAMPFERNot AvailableStart: 07-08-2024 End: 13-16-3851EczqotCmvqy Kamjtvictor manuel DENTAL TECH Work Phone: NOM[facility] FNR FMComment on above:Paroxysmal atrial fibrillation (CMS/HCC)Start: 06-28-2024 End: 38-80-6497Iegchgdqx encounterSsara Cordonjtvictor manuel DENTAL TECH Work Phone: N[facility] FNR FMStart: 05-23-2024 End: 00-27-9085Tffpbnuuv Devonte Adam MD Work Phone: NOM[facility] FNR FMComment on above:Acute cough (Primary Dx) Start: 05-20-2024 End: 38-66-0209Qmmlkq Will Crodontjvictor manuel DENTAL TECH Work Phone: N[facility] FNR FMStart: 05-20-2024 End: 76-94-6743Zyujtx Will Cordonjtvictor manuel DENTAL TECH Work Phone: NOM[facility] FNR FMStart: 05-20-2024 End: 96-90-1087Orbejx outpatient visit 25 minutesSaraj Cordonjtvictor manuel DENTAL TECH Work Phone: NOM[facility] FNR FMComment on above:Type 2 diabetes mellitus without complication, without long-term current use of insulin (Primary Dx); Acute bacterial conjunctivitis of both eyes; Non-recurrent acute suppurative otitis media of left ear without spontaneous rupture of tympanic membraneStart: 05-20-2024 End: 13-10-6821xiwcsxbdkaMWNJH KAMPFERNot AvailableStart: 04-29-2024 End: 34-70-1853smlvkxadqxCXNVIB A RUSHERNot AvailableStart: 04-01-2024 End: 04-55-8389heyricyscnQglfhhgEver Guillen MDFacility:[facility]SE ED[facility]ARDO Mojica Start: 03-22-2024 End: 32-30-7755VczzcnYyhze Kampfer DENTAL TECH Work Phone: noMS FNR FMComment on above:Primary hypertension (CMS/HCC)Start: 03-04-2024 End: 27-92-1064xaoihssaobBwhvdaiCheyanne Guillen MDFacility:[facility] Start: 02-23-2024 End: 64-82-9453dqbljerxcrIDO F O AHMADMercy Welches HospitalStart: 02-23-2024 End: 30-18-4691Vfcmcbgvau hospital visit by Herve Foster MD Work Phone: [facility] LabComment on above:Paroxysmal atrial fibrillation (HCC) (Primary Dx); PAF (paroxysmal atrial fibrillation) (HCC)AF (paroxysmal atrial fibrillation) (HCC)Start: 02-20-2024 End: 68-36-2672uzxqnyzexgSKOFE KAMPFERNot AvailableStart: 02-20-2024 End: 95-41-5337Nuwuec flowsJaren Castillo DENTAL TECH Work Phone: N[facility] FNR FMStart: 02-20-2024 End: 97-87-1959Rbzoqg flowsJaren Castillo DENTAL TECH Work Phone: NOM[facility] FNR FMStart: 02-20-2024 End: 79-02-0013Ufnkcuq encounter Cal Castillo NP Work Phone: noms FNR FMComment on above:Encounter for wellness examination (Primary Dx); Mixed hyperlipidemia (CMS/HCC); Primary hypertension ([facility]/HCC); Type 2 diabetes mellitus with other specified complication, without long-term current use of insulin ([facility]); Vitamin D deficiency; 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; Gastroesophageal reflux disease without esophagitis; Paroxysmal atrial fibrillation (CMS/HCC); POOL (obstructive sleep apnea); Peripheral edema; PVD (peripheral vascular disease) ([facility]/HCC); Lumbar radiculopathy; Restless legs syndrome; GERD without esophagitis; Type 2 diabetes mellitus with diabetic peripheral angiopathy without gangrene, without long-term current use of insulin ([facility]); Insomnia, unspecified type; Morbid (severe) obesity due to excess calories ([facility]); Colon cancer screening declined; Screening PSA (prostate specific antigen); Benign prostatic hyperplasia with lower urinary tract symptoms, symptom details unspecified; Body mass index (BMI) 40.0-44.9, adult (CMS/HCC)Start: 02-20-2024 End: 99-95-2663Xnohboe encounter statustim Jonathan DENTAL TECH Work Phone: noms HealthcareStart: 02-19-2024 End: 40-40-5005BagbypXqzmlzvq Hohman MD Work Phone: noms FNR FMComment on above:Type 2 diabetes mellitus with diabetic peripheral angiopathy without gangrene ([facility])Start: 02-05-2024 End: 29-62-0509mzzcflbvtrVLHKFUZLake [facility]: 02-05-2024 End: 59-97-8882Wzqsyaqbtv hospital visit by [address] Non-Invasive CardiologyComment on above:Permanent atrial fibrillation (HCC); Chronic anticoagulation; Essential hypertension; Type 2 diabetes mellitus with diabetic nephropathy, without long-term current use of insulin (HCC); History of COVID-19; Obesity, Class III, BMI 40-49.9 (morbid obesity)Start: 01-31-2024 End: 00-19-1339JyciceRadrleos Hohman MD Work Phone: noms FNR FMComment on above:Restless legs syndrome Start: 01-01-2024 End: 25-98-1049Dsnrxn OnlyChristy A Evangelista DENTAL TECH Work Phone: NOTO FNR FMComment on above:Bronchitis (Primary Dx) Start: 12-29-2023 End: 29-62-3045Mqljqs OnlyChristy A Evangelista DENTAL TECH Work Phone: NOOA FNR FMComment on above:BronchitisStart: 12-28-2023 End: 02-68-8912ZbgpojHvbvtfgi Hohman MD Work Phone: noms FNR FMComment on above:BronchitisBronchitis (Primary Dx)Start: 12-26-2023 End: 50-52-9856Lsdavr flowsheetChristy A Evangelista DENTAL TECH Work Phone: NOGS FNR FMStart: 12-26-2023 End: 55-58-9167Ghonlf flowsheetChristy A Evangelista DENTAL TECH Work Phone: noms FNR FMStart: 12-26-2023 End: 22-08-0661Lyodqg outpatient visit 15 minutesChristy A Evangelista DENTAL TECH Work Phone: noms FNR FMComment on above:Acute right otitis media (Primary Dx); BronchitisStart: 12-26-2023 End: 26-22-9656cnyslywaxnINIKWTX A FITZPATRICKNot AvailableStart: 12-21-2023 End: 20-21-7028Gugzxeobq encounterBernie Adam MD Work Phone: n[facility] FNR FMStart: 11-15-2023 End: 29-29-3568Wvnzes flowsheetSteven A Rusher DPM Work Phone: [facility] PODIATRYStart: 11-15-2023 End: 91-85-0964Njeaoz flowsheetSteven A Rusher DPM Work Phone: [facility] PODIATRYStart: 11-15-2023 End: 01-45-9838Nfzpyiw encounter procedureSteven A Rusher DPM Work Phone: noms PODIATRYComment on above:Dermatophytosis of nail (Primary Dx); Dystrophic nail; Pain around toenail, right foot; Pain around toenail, left footStart: 11-15-2023 End: 28-27-3892kukcxbthzbUDRJDM A RUSHERNot AvailableStart: 10-23-2023 End: 71-59-1586RfhpnbYjqqy Kampfer DENTAL TECH Work Phone: noms FNR FMComment on above:Paroxysmal atrial fibrillation (CMS/HCC)Start: 10-11-2023 End: 37-73-3020Vrsjtf Will Cordonjtvictor manuel DENTAL TECH Work Phone: noms FNR FMStart: 10-11-2023 End: 81-75-0444Dtaher Will Castillo DENTAL TECH Work Phone: NOAO FNR FMStart: 10-11-2023 End: 48-28-8569Vziiyc outpatient visit 15 minutesSaraj Cordonjtvictor manuel DENTAL TECH Work Phone: noms FNR FMComment on above:Dental abscess (Primary Dx)Start: 10-11-2023 End: 24-08-3139tbqyibpyejWIENY KAMPFERNot AvailableStart: 06-14-2023 End: 15-09-5825valpsptrsuSACMAM C STEPANIC [facility] HospitalStart: 05-23-2023 End: 46-20-7602gukevouulwLanqorv MeyerFacility:[facility] Start: 05-23-2023 End: 74-70-4219tlexodlghnTF-C Jeannine Evangelista Work Phone: [facility] Work Phone: Start: 05-23-2023 End: 91-39-6096Ihlymkw encounter procedureNP-C Jeannine Evangelista Work Phone: [facility] [address] Work Phone: Start: 05-11-2023 End: 26-47-3628ywfmourusfHF-C Jeannine Moseleyk Work Phone: [facility] Work Phone: Start: 05-11-2023 End: 34-45-1347Zrqndbj encounter procedureNP-C Jeannine Estevezpatrick Work Phone: [facility] [facility] [address] Work Phone: Start: 75-34-3680Jkzymlogd encounterJeremalberto Rico PT Work Phone: noms CI PTComment on above:re: [employer] for PT (He called noting he had just gotten verification per [employer] that if referring provider refers for therapy then PT would be covered. He gave a reference # [id number].)Start: 40-88-5001Yoiqindwd encounterAlex Rico PT Work Phone: NOMS CI [...] said he will most certainly do so.)Start: 48-72-9495Gucrfssls encounterMaddie L[place] PTANOMS CI PTComment on above:re: PT today (Called and noted auth is still pending for PT and in need to cx today; I informed I will keep up-to-date come his next on 03/30.)Start: 30-64-2362Kmdrwu Michael Rico PT Work Phone: NOMS CI PTStart: 21-98-4439Iogzmk Michael Rico PT Work Phone: NOMS CI PTStart: 03-23-2023 End: 11-32-4644lblthjxodoScpybm T Blackston PT Work Phone: noMS CI PTComment on above:Left thigh pain (Primary Dx); Muscle strain of left thigh, subsequent encounterStart: 09-23-2020 End: 99-35-7864Yzpxoluoie [facility] RoomGO[facility] EchocardiographyComment on above:Persistent atrial fibrillation (HCC); SOB (shortness of breath); Essential hypertension; Other specified diabetes mellitus with other specified complication, unspecified whether senior care insulin use (HCC); Class 2 obesity with body mass index (BMI) of 36.0 to 36.9 in adult, unspecified obesity type, unspecified whether serious comorbidity present; Pain in both lower extremitiesStart: 03-10-2020 End: 44-40-2222Gwyfaqdxic hospital visit by [facility] Vascular Imaging Room [facility] LaboratoryComment on above:Controlled type 2 diabetes mellitus with hyperglycemia, without long-term current use of insulin (HCC); Persistent atrial fibrillation (HCC); SOB (shortness of breath); Essential hypertension; Other specified diabetes mellitus with other specified complication, unspecified whether senior care insulin use (HCC); Class 2 obesity with body mass index (BMI) of 36.0 to 36.9 in adult, unspecified obesity type, unspecified whether serious comorbidity present; COVID-19; Fluid retention; Pain in both lower extremitiesPain in both lower extremities; PVD (peripheral vascular disease) (HCC)Start: 02-12-2020 End: 23-17-0099Tsgreejcwj hospital visit by Herve Foster Work Phone: mthz ICUComment on above:ArrivedStart: 01-22-2020 End: 94-20-5478Daxvvoidwv hospital [facility] Echo RoomGO[facility] EchocardiographyComment on above:Persistent atrial fibrillation (HCC); Essential hypertension; SOB (shortness of breath); Fluid retention; Other specified diabetes mellitus with other specified complication, unspecified whether senior care insulin use (HCC); Class 2 obesity with body mass index (BMI) of 36.0 to 36.9 in adult, unspecified obesity type, unspecified whether serious comorbidity presentStart: 12-16-2019 End: 36-58-0161Gxentgs encounter procedureDOCTOR MISCFacility:K9Xvtsh: 12-11-2019 End: 07-76-3259Kktsulfkct hospital visit by [facility] Covid Screening ScheduleGOOD SAMARITAN HOSPITAL Covid ScreeningComment on above:Arrived Procedures DateProcedureProcedure DetailPerforming ClinicianStart: 01-30-9867Arsezcjols glycosylated d2oEqdxutim Castillo NP Work Phone: Start: 55-01-8347Ncheinhgcr glycosylated q3oYhzumtim Castillo DENTAL TECH Work Phone: Start: 02-23-2024 End: 79-62-8323Unz routine ecg w/least 12 lds w/i&Ivan Foster MD Work Phone: Start: 20-01-4050Rhj routine ecg w/least 12 lds w/i&r Ej F Kate Foster MD Work Phone: Start: 80-45-8100Qamat albumin quantitativeSatim Castillo DENTAL TECH Work Phone: Start: 10-83-1583Zkgep panelSsara Castillo DENTAL TECH Work Phone: Start: 12-10-7327Bmoddeubfvewp metabolic panelSsara Castillo DENTAL TECH Work Phone: Start: 40-22-5949Ezfg tthrc r-t 2d w/wom-mode compl spec&colr Elizabeth Morrow PA-C Work Phone: Start: 71-10-5953Dvay tthrc r-t 2d w/wom-mode compl spec&colr Fern F O Cristian SANTAMARIA Work Phone: Start: 65-70-1048Fsfkf metabolic panel calcium total Ali F O Ahmad Work Phone: Start: 78-12-4322Fsupq panelAli F O Ahmad Work Phone: Start: 28-61-8459Ujo routine ecg w/least 12 lds w/i&r Ali F O Ahmad Work Phone: Start: 13-76-3926Upuam of troponin quantitativeAli F O Ahmad Work Phone: Start: 06-73-3789Hvfcm metabolic panel calcium total Ali F O Ahmad Work Phone: Start: 51-66-6634Ytwye count complete automatedAli F O Ahmad Work Phone: Start: 88-43-7517Bqqhrstbai glycosylated a1cAli F O Ahmad Work Phone: Start: 36-69-6546Utkv tthrc r-t 2d w/wom-mode compl spec&colr Fern F O Ahmad Work Phone: Start: 12-16-2019 End: 25-15-3036Wqgpniwywdk examination of blood, cultureDOCTOR MISCComment on above:Performed By: #### [id number] #### [facility] [address] [address] Cheryl ZarinaPerformed By: #### CBC #### [facility] [address] [address] Cheryl Srinivasan Plan of Treatment DateCare ActivityDetailAuthorStart: 40-59-6999XGwI/Tdap/Td vaccine (2 - Td or Tdap)DTaP/Tdap/Td vaccine (2 - Td or Tdap)[facility]Start: 09-86-9210AYqJ/Tdap/Td vaccine (2 - Td)DTaP/Tdap/Td vaccine (2 - Td)[facility] KYStart: 01-07-2026Medicare Annual Wellness (AWV)Medicare Annual Wellness (AWV)NOM HealthcareStart: 70-42-3519Sdmtz screening for protein Diabetes: Urine Protein ScreeningNOWV HealthcareStart: 01-20-2025 End: 84-74-4115Orsuaij encounter egctvlxby00/08/2025 2:00 PM EST [facility] [address] [place] [address] Kenia Castillo NP [address] [place], [place] [id number] [facility] MedicineStart: 01-08-2025 End: 12-96-7004Rpvwvpg encounter procedureNOSAINT FRANCIS HOSPITAL & [facility] SERVICES PODIATRYStart: 12-19-2024 Hemoglobin A1c measurementDiabetes: Hemoglobin O1KXIFO HealthcareStart: 10-15-2024 End: 48-35-7664lovpgukfth13/02/2025 2:30 PM EDT Treatment [facility] [address] [place], [place] Maddie [place] PTANOMS [place] Physical TherapyStart: 52-89-7348Lvahtllsw vaccination Influenza Vaccine (#1)[facility] HealthcareStart: 10-10-2024 End: 57-94-1277pfkgbfdouy58/28/2025 2:30 PM EDT Treatment [facility] [address] [place], [place] Valerie Argueta PTNOMS [place] Physical TherapyStart: 10-07-2024 End: 94-77-6565etbolzuwfoZXEI [place] Physical TherapyComment on above:Spinal stenosis, lumbar region with neurogenic claudication (Primary Dx); Bilateral leg weakness; Left thigh painStart: 2024 End: 44-28-0934eeftbqdzfqTWEQ [place] Physical TherapyComment on above:Arrived Start: 09-30-2024 End: 01-91-8618lgdqsgimam87/18/2025 2:30 PM EDT Treatment [facility] [address] [facility] [address] [place], [place] Maddie [place] PTANOMS [place] [facility] TherapyStart: 09-26-2024 End: 01-85-7864aomnmtyomeGBTU [place] [facility] TherapyComment on above:Arrived Start: 09-23-2024 End: 74-40-5078aialwqtfeeVSMR [place] [facility] TherapyComment on above:Arrived Start: 09-19-2024 End: 68-09-7765ruwljrjbuuNSHP [place] [facility] TherapyComment on above:Arrived Start: 09-18-2024 End: 42-31-1794Bfmwrfs encounter procedureNOMS FNR FMComment on above:Arrived Start: 09-16-2024 End: 10-01-0364wtigjzhlxfFDCK [place] [facility] TherapyComment on above:Arrived Start: 09-11-2024 End: 55-57-6639xselpkjuoe57/30/2025 3:00 PM EDT Treatment [facility] [address] [place], [place] Maddie [place], PTANOMS [place] [facility] TherapyStart: 09-09-2024 End: 26-30-7291hdymkvylic03/28/2025 2:30 PM EDT Treatment [facility] [address] [place], [address] Noa, Maddie, PATIENT SITTER Spinal stenosis, lumbar region with neurogenic claudication (Primary Dx); Bilateral leg weakness; Left thigh painNOMS [facility] Comment on above:Spinal stenosis, lumbar region with neurogenic claudication (Primary Dx); Bilateral leg weakness; Left thigh painStart: 09-03-2024 End: 52-30-3271Llwspzq encounter procedureNOMS PODIATRYComment on above: ArrivedStart: 08-30-2024 End: 52-84-8477tahkvcphzm47/18/2025 12:30 PM EDT Evaluation [facility] CI PT [address] [facility] [address] [place] [address] Valerie Argueta PTNOMS CI PTStart: 81-33-2596Pviiehqcab A1c measurementDiabetes: Hemoglobin A1C NOMS HealthcareStart: 07-22-2024 End: 99-40-2404Xqdtyglcdsejo metabolic 2000 panel - Serum or PlasmaComprehensive metabolic panel Lab Routine Decreased renal function Expected: 07/22/2024 (Approximate), Expires: 07/22/2025NOWV Healthcare Work Phone: Comment on above:Expected: 07/22/2024 (Approximate), Expires: 07/22/2025Start: 07-09-2024 End: 44-18-4618Pdzfrgmbjsml / ancillary services ylrnndalhy85/27/2025 2:45 PM EDT Ancillary Procedure [facility] [address] [place] [id number] Localized edemaNOMS FNR ULTRASOUNDComment on above: Localized edemaStart: 07-09-2024 End: 54-83-5230EAS W Auto Differential panel - BloodCBC and differential Lab Routine Localized edema Expected: 07/09/2024 (Approximate), Expires: 07/09/2025 NOMS HealthcareComment on above:Expected: 07/09/2024 (Approximate), Expires: 07/09/2025Start: 07-09-2024 End: 35-21-1240Semqtwihjccui metabolic 2000 panel - Serum or PlasmaComprehensive metabolic panel Lab Routine Localized edema Expected: 07/09/2024 (Approximate), Expires: 07/09/2025NOMS HealthcareComment on above:Expected: 07/09/2024 (Approximate), Expires: 07/09/2025Start: 07-09-2024 End: 64-17-6488Xsbqmryjgcu peptide B [Mass/volume] in BloodB-type natriuretic peptide Lab Routine Localized edema Expected: 07/09/2024 (Approximate), Expires: 07/09/2025NOMS HealthcareComment on above:Expected: 07/09/2024 (Approximate), Expires: 07/09/2025Start: 07-09-2024 End: 71-82-2235Vksroqg encounter procedureNOMS FNR FMComment on above:Arrived Start: 07-09-2024 End: 14-52-1201ZOE W/REFLEX TO FT4TSH W/REFLEX TO FT4 Lab Routine Localized edema Expected: 07/09/2024 (Approximate), Expires: 07/09/2025[facility] Comment on above:Expected: 07/09/2024 (Approximate), Expires: 07/09/2025Start: 07-09-2024 End: 95-09-2138JZ.doppler Lower extremity vein - bilateralVascular US lower extremity venous duplex bilateral Imaging STAT Localized edema Expected: 07/09/2024, Expires: 07/09/2025NOMS HealthcareComment on above:Expected: 07/09/2024, Expires: 07/09/2025Start: 07-09-2024 End: 75-99-5234RD Chest 2 ViewsXR chest 2 views Imaging STAT Localized edema Expected: 07/09/2024, Expires: 07/09/2025[facility] Work Phone: Comment on above:Expected: 07/09/2024, Expires: 07/09/2025Start: 90-97-4604Jcybgepqh for malignant neoplasm of colonColorectal Cancer ScreeningNOWV HealthcareComment on above:Postponed from 1948 (Patient Refused)Start: 54-26-8112Chpsu screening for proteinDiabetes: Urine Protein ScreeningNOWV HealthcareStart: 61-23-7491Vsqaxssmav A1c measurement Diabetes: Hemoglobin D6MLIKZ HealthcareStart: 05-20-2024 End: 72-84-4448Ywankuu encounter procedureNOMCLAREN FLINTR FMComment on above:Arrived Start: 04-15-2024 End: 30-78-0494Mfuqyev encounter mbhuqdycy03/03/2025 2:30 PM EST Procedure Visit [facility] [address] [place] [address] Arianna Lou DPM [address] [place] [address] NOMS PODIATRYStart: 03-21-2024 End: 98-85-3440Txcxzcf encounter kqqpdgliy11/06/2025 2:00 PM EST Office Visit [facility] CARDIOLOGY Part of [address] [phone] Shalini Morrow PA-C [address] [place] [address] [place] [address] CARDIOLOGY Part [facility] HospitalComment on above:4 weekStart: 03-19-2024 End: 29-01-8732Hevojhq encounter bhkwylxss70/04/2025 1:00 PM EST Procedure Visit [facility] [address] [place] [address] Arianna Lou DPM [address] [place] [address] NOMS PODIATRYStart: 03-04-2024 End: 52-40-1341Cfouqdt encounter /20/2025 1:00 PM EST Office Visit [facility] ORTHOPAEDICS [address] [place] [address] Trenton Redd PA [address] [place] [address] NOMS CI ORTHOPAEDICSStart: 02-22-2024 End: 64-39-0640Sojafok encounter jggncfrij07/09/2025 3:00 PM EST Office Visit [facility] C[facility] Part [facility] [address] [place] [address] Shalini Morrow PA-C [address] [place] [address] 2 [facility] CenterComment on above:2 weekStart: 70-04-9154Mvdofd Wellness Visit (Medicare)Annual Wellness Visit (Medicare)[facility] YoungstownStart: 02-20-2024 End: 51-90-4059Kymdtzy encounter nkvparhkn22/07/2025 2:00 PM EST Office Visit [facility]ASHA[facility] FM [address] [facility] [place] [address] Ejvkhni, Sarah, DENTAL TECH [address] [place] [facility] [address] NOMS FNR FMStart: 01-17-2024 End: 76-90-5224Dosrqmj encounter zhohrcdly70/04/2024 2:00 PM EST Office Visit [facility] [address] [place] [facility] [place] [address] Vefspde, Sarah, DENTAL TECH [address] [place] [facility] [address] NOMS FNR FMStart: 15-75-6390Aiplbokmdu A1c measurementDiabetes: Hemoglobin Q5GFQFU HealthcareStart: 10-20-2024Medicare Annual Wellness (AWV)Medicare Annual Wellness (AWV)NOMS HealthcareStart: 11-15-2023 End: 74-81-1906Ozxbqgf encounter procedureNOMS PODIATRYComment on above: ArrivedStart: 84-23-4102Mvdry screening for proteinDiabetes: Urine Protein ScreeningNOWV HealthcareStart: 73-70-6585Jzynptgss vaccinationInfluenza Vaccine (#1)NOMS HealthcareStart: 10-11-2023 End: 11-19-5058Gltognc encounter uayorrdvk68/28/2024 9:00 AM EDT Office Visit [facility] FNR FM [address] [place] [address] Kenia Castillo, KIERA [address] [place] [address] ArrivedNOMS FNR FMComment on above:ArrivedStart: 06-14-2023 End: 47-59-0638Cnrlnlz encounter krpjgezih50/01/2024 1:30 PM EDT Procedure Visit [facility] [address] [place] [address] Arianna Lou DPM [address] [place] [address] NOMS PODIATRYStart: 06-09-2023 End: 48-30-1373Jqplcys encounter bksjuylth76/26/2024 1:00 PM EDT Office Visit [facility]NR FM [address] [place] [address] Kenia Castillo NP [address] [place] [address] NOMS FNR FMStart: 88-86-1385JMI test (Diabetes, CKD 3-4, OR last GFR 15-59)GFR test (Diabetes, CKD 3-4, OR last GFR 15-59)[facility] CompanyStart: 04-17-2023 End: 43-41-4257Mkaakpt encounter /04/2024 1:30 PM EST Office Visit [facility] [address] [facility] [address] [place] [address] Trenton Redd PA [address] [facility] [address] [place] [address] NOMS CI ORTHOPAEDICSStart: 04-13-2023 End: 14-56-4130sxdznohfrb81/29/2024 1:00 PM EST Treatment [facility] CI PT [address] [place] [address] MaryAlex avelar, PT [address] [facility] [address] [place] [address] NOMS CI PTStart: 04-11-2023 End: 59-61-5255azqsnshvsp11/27/2024 1:00 PM EST Treatment N[facility] CI PT [address] [facility] [address] [place] [address] Maddie [place], PATIENT SITTER NOMS CI PTStart: 04-06-2023 End: 62-51-9494qcnmasfuoh85/22/2024 2:00 PM EST Treatment NOM[facility] CI PT [address] [facility] [address] [place] [address] Maddie [place], PATIENT SITTER NOMS CI PTStart: 04-05-2023 End: 09-24-3099jrhhdmusdj65/21/2024 1:00 PM EST Treatment N[facility] CI PT [address] [facility] [address] [place] [address] Valerie Argueta, PTNOMS CI PTStart: 04-04-2023 End: 27-21-0850ovrigxoinf20/20/2024 1:00 PM EST Treatment [facility] CI PT [address] [facility] [address] [place] [address] Maddie [place], PATIENT SITTER NOMS CI PTStart: 03-30-2023 End: 04-09-3891ptdwhqodgo08/15/2024 2:00 PM EST Treatment [facility] CI PT [address] [facility] [address] [place] [address] Maddie [place], PATIENT SITTER NOMS CI PTStart: 03-28-2023 End: 02-77-4559eqzyffzspy36/13/2024 1:30 PM EST Treatment [facility] CI PT [address] [place] [address] Maddie [place], PATIENT SITTER NOMS CI PTStart: 03-23-2023 End: 61-96-0724kvnkjxjjge39/08/2024 1:00 PM EST Evaluation [facility] CI PT [address] [facility] [address] [place] [address] Maryrosio Alex Martinez, PT [address] [facility] [address] [place] [address] Left thigh pain; Muscle strain of left thigh, subsequent encounterNOMS CI PTComment on above:Left thigh pain; Muscle strain of left thigh, subsequent encounterStart: 81-86-3125Ingarbjfjb A1c measurementDiabetes: Hemoglobin L1ANBSNHermann Area District HospitalStart: 73-99-0791Xdeoiz Wellness Visit (Medicare)Annual Wellness Visit (Medicare)[facility]: 73-64-5784Zjevkdnq screeningDiabetes: Retinopathy ScreeningHermann Area District HospitalStart: 09-30-2021 End: 02-63-9433Akpfpkz encounter kbsbwamum23/18/2022 Office Visit Cardiology Ej Foster MD [address] [place] [address] [place] [address] [facility] Part [facility]: 78-75-7045Oszehchmvw measurementCreatinine [place], [place]north [place]: 31-60-9287FhX1n (Bld) [Mass fraction]A1C test (Diabetic or Prediabetic)[place], KYStart: 77-80-8022Tixdgfrktk A1c yfpjzlzfqbtK4B test (Diabetic or Prediabetic)[facility] HospitalStnorth [place]: 70-28-8388Qdyvw panelBon [facility]: 40-74-4278Vpglwtxlz monitoringPotassium monitoringDoctors Hospital, SDStnorth [place]: 98-36-8445Calynulbhq measurementCreatinine [facility], SDStart: 82-23-0541DgH7m (Bld) [Mass fraction]A1C test (Diabetic or Prediabetic)[place], [place]: 11-24-7250Dsujvvxsp monitoringPotassium [facility], SDStart: 14-98-6050Dzxunzhol vaccinationFlu vaccine (#1)[facility] Work Phone: start: 09-16-2020 End: 23-20-3047Iqirba Visit09/16/2020 Office Visit Cardiology Ej Foster MD [address] [facility] [place] [place] [address] [facility] CARDIOLOGY Part [facility] HospitalStart: 03-10-2020 End: 96-15-7699Pfnqzp Visit03/10/2020 Office Visit Cardiology Ej Foster MD [address] [facility] [place] [place] [address] [facility] CARDIOLOG[facility]Start: 02-21-2020 End: 52-96-7260Lrtdbu Visit02/21/2020 Office Visit Cardiology Ej Foster MD [address] [facility] [place] [address] [facility] CARDIOLOGY Part [facility] HospitalStart: 01-30-2020 End: 16-71-6558Fegdpq Visit01/30/2020 Office Visit Cardiology Ej Foster MD [address] [facility] [place] [address] [facility] C[facility] Part [facility]: 87-06-0506Qbilvo Wellness Visit (AWV)Annual Wellness Visit (AWV)[facility]: 10-15-2019 Influenza vaccinationFlu vaccine (#1)[facility]: 2013 Pneumococcal 65+ years Vaccine (1 of 1 - PPSV23)Pneumococcal 65+ years Vaccine (1 of 1 - PPSV23)[facility]: 08-83-4830Toicrmdbmxkr 65+ years Vaccine (2 of 2 - PPSV23)Pneumococcal 65+ years Vaccine (2 of 2 - PPSV23)[facility]: 15-83-6954Odpbouhx Vaccine (2 of 3)Shingles Vaccine (2 of 3)[facility]: 27-84-4980Gstwwsrau for malignant neoplasm of colonColon cancer screen colonoscopySub[facility]: 1998 Shingles Vaccine (1 of 2)Shingles Vaccine (1 of 2)[facility]: 58-10-9600Zjoiuyidn for malignant neoplasm of colonSentara Careplex Hospital Start: 30-52-6060Jkrta panelLipid screenSuburban Community Hospital [facility]: 10[birth year]04-1967 DTaP/Tdap/Td vaccine (1 - Tdap)DTaP/Tdap/Td vaccine (1 - Tdap)[facility]: 95-70-6082Mymqsocl microalbuminuria testDiabetic microalbuminuria test [facility]: 26-83-5800Dffhozgc screeningDiabetic retinal examBon Secours St. [facility]: 87-63-3929Bawwffeee C screeningHepatitis C screenBon Secours St. [facility]: 97-92-0349Zblqj screening for proteinDiabetic Alb to Cr ratio (uACR) [facility]: 57-46-2746Vikvirsfht Screen Depression ScreenBon Secours St. [facility]: 65-55-4958Gkcybopc foot examinationDiabetic foot examBon [facility] Hospitalart: 80-75-5782Iukcrahu retinal examDiabetic retinal examSuburban Community Hospital [facility]: 62-16-4340Bgtvf panelLipid screenSuburban Community Hospital [facility]: 30-20-5715Mpltnptyvn measurement Creatinine monitoringSuburban [facility] Hospital [facility]: 03-06-3684Vpgglvlbh C screening Hepatitis C screenSuburban Community Hospital [facility]: 81-57-7230Exyluipjy monitoring Potassium monitoringSuburban [facility] Hospital [facility]: 91-69-1547Drxzhqfdy for malignant neoplasm of colonHermann Area District Hospital End: 44-25-4692Bazjqliiutrst externalBon [facility] on above:1 Occurrences starting 02/23/2024 until 02/23/2024 End: 82-88-4107Jehwuyrdbohgwtv and angiography procedure details panelDiagnostic Cardiac Covering Machine Operator Procedure Cardiac Cath Routine One Time for 1 Occurrences starting 02/12/2020 until 02/12/2020[facility] on above:One Time for 1 Occurrences starting 02/12/2020 until 02/12/2020Continuous pulse oximetryPulse oximetry, continuous Respiratory Care Routine Every 4hr until discontinued starting 02/12/2020[facility] [employer], NORAComment on above:Every 4hr until discontinued starting 02/12/2020 End: 49-66-2943Ukdtd-19 AmbulatoryCovid-19 Ambulatory Lab Routine Once for 1 Occurrences starting 12/11/2019 until 12/11/2019[facility] [employer] NORAComment on above:Once for 1 Occurrences starting 12/11/2019 until 12/11/2019Covid-19 AmbulatoryCovid-19 Ambulatory Lab Routine 12/11/2019 2:27 PM EDOhio [facility] [employer], NORAEKG 12 LeadEKG 12 Lead ECG Routine 02/12/2020 8:26 AM [facility] [employer] [facility] NORA End: 36-47-7282Fwj Tidal CO2 ContinuousEnd Tidal CO2 Continuous Respiratory Care Routine Continuous until discontinued starting 02/12/2020[facility] [employer] [place] NORA Comment on above:Continuous until discontinued starting 02/12/2020 End: 60-90-1108Eictpglb cardiac holter monitor (3 day-14 day)[facility] on above:One Time for 1 Occurrences starting 02/23/2024 until 02/23/2024 End: 42-01-6379Zhtfryfg cardiac holter monitor (3 days-14 day)[facility]shEx[facility] on above:1 Occurrences starting 02/05/2024 until 02/05/2024 End: 48-83-1022Wpaswkvb cardiac holter monitor (3 days-14 day)[facility]51edjExcelsior Springs Medical Center on above:1 Occurrences starting 02/26/2024 until 02/26/2024 End: 76-06-8947CzY8b (Bld) [Mass fraction]Hemoglobin A1C Lab Routine Controlled type 2 diabetes mellitus with hyperglycemia, without long-term current use of insulin ([facility]) 1 Occurrences starting 03/10/2020 until 03/10/2020[facility] [employer], NORAComment on above:1 Occurrences starting 03/10/2020 until 03/10/2020HbA1c (Bld) [Mass fraction]Hemoglobin A1C Lab Routine Controlled type 2 diabetes mellitus with hyperglycemia, without long-term current use of insulin ([facility]) 03/10/2020 12:35 PM [employer] End: 16-30-6619AQMJNVIM PACU OXYGEN THERAPY PROTOCOLInitiate PACU Oxygen Therapy Protocol Respiratory Care Routine Continuous until discontinued starting 02/23/2024[facility] [facility] on above:Continuous until discontinued starting 02/23/2024Oxygen therapy [Minimum Data Set]Initiate Oxygen Therapy Protocol Respiratory Care Routine Daily until discontinued starting 02/12/2020 [facility] above:Daily until discontinued starting 02/12/2020 End: [id number] LOWER EXTREMITY ARTERIAL SEGMENTAL PRESSURES W PPGVL LOWER EXTREMITY ARTERIAL SEGMENTAL PRESSURES W PPG Imaging STAT Pain in both lower extremities PVD (peripheral vascular disease) ([facility]) 1 Occurrences starting 03/10/2020 until 03/10/2020[facility] OpenQ MSThe Pickwick Project [facility] on above:1 Occurrences starting 03/10/2020 until 03/10/2020VL LOWER EXTREMITY ARTERIAL SEGMENTAL PRESSURES W PPGVL LOWER EXTREMITY ARTERIAL SEGMENTAL PRESSURES W PPG Imaging STAT Pain in both lower extremities PVD (peripheral vascular disease) ([facility]) 03/10/2020 1:24 PM [facility] LabsSelect Medical Specialty Hospital - YoungstownBridgeWave Communications MSYik Yak Immunizations Immunization DateImmunizationNotesCare ThsloamtNfgnjjef40-80-7800hjqdvtvwl, high dose seasonal, preservative-freeKenia Castillo DENTAL TECH Work Phone: [facility] HospitalYonjlnhwym24-22-1122Mzkyoxbyuwuv Conjugate PCV 20 Kenia Castillo DENTAL TECH Work Phone: [facility] HospitalHmnkhbltpf58-70-9714QWWO-LRQ-5 (COVID-19) vaccine, mRNA, spike protein, LNP, PF, 50 mcg/0.5 mLKenia Castillo DENTAL TECH Work Phone: [facility] HospitalMvdirmycud67-64-2603dulmraear virus vaccine, unspecified formulationSammajaycob Argueta [facility] HospitalFfhzdzdxzz96-48-1779FXJ, recombinant, protein subunit RSVpreF, adjuvant reconstitu, 120mcg/0.5mL, PF (Arexvy)Kenia Castillo DENTAL TECH Work Phone: [facility] HospitalGlxrbfittl38-81-8798mvvpfovhuacy polysaccharide vaccine, 23 valentJeremy Blackston PT Work Phone: [facility] HospitalZlfusnbiqz88-79-3976cwepeespc, high dose seasonal, preservative-freeJeremy [facility] PT Work Phone: [place] [address]Bdfyrmzvcg36-42-2085rmkzuzxju virus vaccine, unspecified formulationSsara Castillo DENTAL TECH Work Phone: [place] [address]Qmfynljshp12-74-1525Roearihcz, Seasonal, Quadrivalent, AdjuvantedJeremy [facility] PT Work Phone: [place] [address]Zwmyrrywze77-68-0283UOCY-GPL-6 (COVID-19) vaccine, mRNA, spike protein, LNP, bivalent, preservative free, 30 mcg/0.3 mL dose, mauro-sucrose formulationJeremy [facility] PT Work Phone: [place] [address]Kyfsphszpr50-09-0720AERX-CmX-8, UnspecifiedJegreen cross hospitaly [facility] PT Work Phone: [place] [address]Wrhovhqefu63-52-3632Wucokcsis, High-dose Seasonal, Quadrivalent, Preservative FreeJeremy [facility] PT Work Phone: [place] [address]Crlycwipbc46-83-8611Tiebqtqqv, High-dose Seasonal, Quadrivalent, Preservative FreeJeremy [facility] PT Work Phone: [place] [address]Brglrtiaps10-96-8535Fzegoflmz, High-dose Seasonal, Quadrivalent, Preservative FreeJeremy [facility] PT Work Phone: [place] [address]Ejhhttcisq63-54-4815Gwlzpn Purple Cap SARS-CoV-2 VaccinationJeremy [facility] PT Work Phone: [facility] HospitalEjpihhtwoq71-65-9067Mfbyqv Purple Cap SARS-CoV-2 VaccinationJeremy [facility] PT Work Phone: [facility] HospitalIztuqtrvbx67-72-4033Sdrecl Purple Cap SARS-CoV-2 VaccinationJeremy [facility] PT Work Phone: [phone] [place], [place] [address]Csqilzkeft21-10-8835ppwhajche, injectable, quadrivalent, preservative freeJeremy Blackston PT Work Phone: [facility] HospitalVhbmwyyvsz45-82-5677neteofbvw, injectable, quadrivalent, preservative freeJeremy Blackston PT Work Phone: [phone]-[facility] HospitalFykunodtxh90-21-9005ffphqvq toxoid, reduced diphtheria toxoid, and acellular pertussis vaccine, adsorbedJeremy Blackston PT Work Phone: [phone] [place], [place] [address]Gtnwcqmqjk62-91-8050dirjxajog, high dose seasonal, preservative-freeJeremy Blackston PT Work Phone: [phone] HospitalGbjhmosppo47-84-6394pbwnyohdp, high dose seasonal, preservative-freeJeremy Blackston PT Work Phone: [phone] HospitalWatvenkfzt59-06-7064Nesyaerqr, High-dose Seasonal, Quadrivalent, Preservative FreeJeremy Blackston PT Work Phone: [phone] [place], [place] [address]Eanwrcprgh66-57-0778dnqsblkum, injectable, quadrivalent, contains preservativeJeremy Blackston PT Work Phone: [phone] HospitalTutmrrgpkj65-00-8786tjtubmxde, injectable, quadrivalent, preservative freeJeremy Blackston PT Work Phone: [phone] [place], [place] [address]Klfuqvpkxe38-85-4042ktpmoznjlugg conjugate vaccine, 13 valentJeremy Blackston PT Work Phone: [phone] [place], [place] [address]Lvixyfkohp37-95-2837wxrjfwqvh, seasonal, injectable, preservative freeJeremy Blackston PT Work Phone: [phone] [place], [place] [address]Igewsjxmob59-29-2038faqxjxyqk, injectable, quadrivalent, preservative freeJeremy Blackston PT Work Phone: [phone] [place], [place] [address]Xtmjxoynuq89-52-6079doghffpki, seasonal, injectableJeremy Blackston PT Work Phone: [phone] [place], [place] [address]Fthfmscooj06-21-1745idmgyildo, seasonal, injectable, preservative freeAlex Rico PT Work Phone: [facility] HospitalRepluftqzq40-43-1708avcjdantadpw polysaccharide vaccine, 23 valentJespencer Rico PT Work Phone: [facility] HospitalAdtajjlhip93-59-6465qsmfbp vaccine, liveAlex Rico PT Work Phone: [facility] HospitalJrvtbvmezn00-45-0796gifucvhdp, seasonal, injectableJeremy Trisha PT Work Phone: [facility] Payers DatePayer CategoryPayerPolicy [id number]-pay2024Medicare [id number] 2024Medicare (Managed Care) [employer] Member Subscriber Plan / Payer (Effective 2023-Present) Name: Zaina Winters Relation to Subscriber: Self Name: Zaina Winters Payer ID: Not on file Group ID: Not on file Type: Not on file Address: [address] [place] [id number] Member Subscriber Plan / Payer (Effective 2023-Present) Name: Zaina Winters Relation to Subscriber: Self Name: Zaina Winters Payer ID: Not on file Type: Not on file Address: [address] [place] [id number] [id number] [id number] [id number] 1.2.840.950914.1.13.239.2.7.3.879[id number] [id number] 2.16.840.1.109317.3.57[id number] 2.16840.1.619975.3.579.2.199776-16-8980Kxsqfgn14524526 2.0.1.259435.3.579.2.005360-15-7021Ftiolxl02463152 2.840.1.144022.3.579.2.255825-46-0495Lvocmud57994537 2.16840.1.193528.3.579.2.90174-80-7888Ncofzqu16250843 2.16840.1.520512.3.579.2.38238-68-4768Thcvuyt59930042 2.840.1.427029.3.579.2.16304-84-5796Anbipqq18126150 2.16840.1.803565.3.579.2.35478-02-0757Swdttxc08569391 2.16840.1.396679.3.579.2.760941-36-0846Vpsxxkk48843944 2.16840.1.759288.3.579.2.595176-51-5269Gqhbmxv83296413 2.16840.1.930092.3.579.2.254309-83-6336Vxwjkex11130364 2.16840.1.067693.3.579.2.378174-86-6053Jwmmjmy64794954 2.16840.1.135609.3.579.2.604779-44-3881Ejjcjzm55342794 2.16840.1.130699.3.579.2.533393-94-2306Qreavkv83014709 2.16840.1.440680.3.579.2.783585-49-7053Tprdzsv46887693 2.840.1.624897.3.579.2.552014-39-6068Exfopue38068419 2.16840.1.394231.3.579.2.592898-46-2820Rpctqsr36791075 2.840.1.261929.3.579.2.525261-24-1835Wpqdyeg5545243 2.840.1.811453.3.579.2.302430-59-9034Cibsepx5412253 2.840.1.442581.3.579.2.222392-06-9142Hgvrlya2619383 2.840.1.377283.3.579.2.267921-29-4253Bpqhczc7413073 2.840.1.999420.3.579.2.062998-12-6327Mxiioos0397064 2.840.1.416713.3.579.2.727023-45-0533Nfcockd9519705 2.16840.1.834095.3.579.2.944478-54-5610Seenmnm4087051 2.16840.1.878666.3.579.2.793177-85-9609Agdzhjw7343292 2.16840.1.139172.3.579.2.536345-93-4032Grycjgc8181525 2.16.840.1.727539.3.579.2.103681-12-4369Apkgdns040395694 2.16.840.1.882388.3.579.2.19883-78-3010Cqfjtmf354419055 2.16.840.1.468104.3.579.2.13744-01-2306Vvnaozq022983477 2.16.840.1.950755.3.579.2.35407-45-4426Qywzzrv785729280 2.16.840.1.040727.3.579.2.784Brxyxpi35272550 2.16.840.1.483429.3.579.2.531 Social History DateTypeDetailFacilityTobacco smoking status NHISUnknown if ever smokedSuburban [facility]: 18-81-4987Vkj Assigned At BirthNot on fileSuburban Community Hospital & [facility]: 01-22-2020 End: 92-62-8635Vuxvugg smoking status NHISNever smokerSuburban Community Hospital & [facility]: 01-22-2020 End: 22-28-5438Ajqbcyz use and exposureNever usedSuburban Community Hospital & [facility]: 03-10-2020 End: 74-87-9303Yslvujn intakeCurrent drinker of alcohol (finding)[facility]: 58-67-2511Wvylnxd Commenthaving had since DecemberGreenwood, KYExposure to SARS-CoV-2 (event)Not sureSuburban Community Hospital & [facility]: 09-16-2020 End: 82-25-0401Rwsjfra intakeDayton Osteopathic Hospital Work Phone: start: 12-02-2022 End: 99-45-8251Kxniejk use panelHermann Area District HospitalStart: 12-33-1059Qcveuge Comment drinks alcohol 2-3 times a weekNOMS HealthcareStart: 59-09-6585Jlb Assigned At [facility] HealthHow often to you have a drink containing alcohol?2-4 times a monthNOMS HealthcareHow many standard drinks containing alcohol do you have on a typical day?3 or 4NOMS HealthcareHow often do you have 6 or more drinks on 1 occasion?NeverNOWV HealthcareStart: 10-11-2023 Alcohol Commentcaffeine intake: 12 oz dailyNOWV HealthcareStart: 09-19-2023 Alcohol Commentcaffeine intake: 2 cups dailyNOWV HealthcareStart: 02-23-2024 Alcohol CommentoccasionalBon [facility] Clinical Notes 09-23-2020 to 09-18-2024 Note Date & GpuvOcflDrzxpmnu17-48-4647 History of Present illness Narrative* Kenia Castillo, DENTAL TECH - 09/18/2024 1:00 PM EDT Images from [...] 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 Social History: Sleep: Reports disrupted sleep due [...] Morbid (severe) obesity due to excess calories ([facility]) -Down 10 lbs since last visit. Keep up the great work! Did discuss seeing if we could get insuranceto cover a different GLP1, he declines at this time would like to continue with lifestyle modifications. documented in this encounterHermann Area District HospitalCztzdrqcfy96-85-9853 History of Present illness Narrative* Maddie Latham [...] to be instructed in home exercise program. Rn Gyn Goals: To be met in 10 weeks [...] Please sign below. Date: documented in this [facility]07-22-2025 History of Present illness Narrative* Arianna Lou [...] understanding. Arianna Lou DPM documented in this encounterHermann Area District HospitalUfuhsgfccx35-81-2842 History of Present illness Narrative* Valerie Argueta, [...] to be instructed in home exercise program. Rn Gyn Goals: To be met in 10 weeks [...] Please sign below. Date: documented in this [facility]07-03-2025 Telephone encounter Note* Telephone Encounter - Marjorie Thayer - 08/15/2024 1:28 PM EDT He contacted and noted he is going on vacation and will contact once he returns to schedule PT. [facility] HospitalLvqwsvhozl52-59-6223 Miscellaneous Notes* Telephone Encounter - Marjorie Thayer - 08/15/2024 1:28 PM EDT He contacted and noted he is going on vacation and will contact once he returns to schedule PT. * Telephone Encounter - Marjorie Thayer - 08/15/2024 1:25 PM EDT CAMMIE requesting a call back to schedule PT Eval. documented in this encounterHermann Area District HospitalVdgnvfaiec34-95-8240 Telephone encounter Note* Telephone Encounter - Marjorie Thayer - 08/15/2024 1:25 PM EDT CAMMIE requesting a call back to schedule PT Eval. [facility] HospitalVgodfycedz89-61-0019 Telephone encounter Note* Telephone Encounter - Doreen Gary - 07/24/2024 9:37 AM EDT Patient called back and message was given. He understood and had no further questions. [facility] HospitalTppxkmntge91-15-6442 Miscellaneous Notes* Telephone Encounter - Doreen Gary [...] To: Kenia Castillo NP documented in this encounterHermann Area District HospitalZawvlxkzke55-78-0323 Telephone encounter Note* Telephone Encounter - Amy Perez MA - 07/23/2024 7:22 PM EDT L/m letting pt know of message. [facility] HospitalLjeibybsmv02-58-8652 Telephone encounter Note* Telephone Encounter - Amy Perez MA - 07/23/2024 7:22 PM EDT ----- Message from Kenia Castillo sent at 07/23/2024 6:13 PM EDT ----- Renal function back to baseline, he needs to avoid NSAIDS ----- Message ----- From: Whitley Wandrian Lab Results In Sent: 07/23/2024 6:24 AM EDT To: Kenia Castillo NP [facility] HospitalHesrqveern15-35-7135 Telephone encounter Note* Telephone Encounter - Doreen Gary - 07/23/2024 2:09 PM EDT Received as voicemail: José, my name is Quentin or Ching. My birthday is a [birth year]I am calling about the blood test that I had taken yesterday. Why did you probably find out about the results or what the dr. say about them? My phone number is [phone] would like to have a call back, please, thank you. [facility] HospitalVcavviyyva90-82-1129 Miscellaneous Notes* Telephone Encounter - Doreen Gary - 07/23/2024 2:09 PM EDT Received as voicemail: José, my name is Quentin or Ching. My birthday is a [birth year]I am calling about the blood test that I had taken yesterday. Why did you probably find out about the results or what the dr. say about them? My phone number is [phone] would like to have a call back, please, thank you. documented in this encounterHermann Area District HospitalTozpymrzlz72-29-3331 Telephone encounter Note* Telephone Encounter - Kenia Castillo NP - 07/09/2024 2:31 PM EDT Zepbound sent to pharmacy, most likely needs PA, please start, will need 4 week follow up if approved [facility] HospitalOqyhjdtsmv13-89-6558 Miscellaneous Notes* Telephone Encounter - Kenia Castillo NP - 07/09/2024 2:31 PM EDT Zepbound sent to pharmacy, most likely needs PA, please start, will need 4 week follow up if approved documented in this encounterHermann Area District HospitalEffhzwbwzh09-67-6197 History of Present illness Narrative* Kenia Castillo [...] been managing his restless legs syndrome with niev-ksx-ftcwovt medication, taking up to ninetablets at a [...] mouth in the morning. documented in this [facility]05-16-2025 Telephone encounter Note* Telephone Encounter - Bernice Sidhu MA - 06/28/2024 1:55 PM EDT Gave number he will call and schedule [facility] HospitalUacilbuhhd59-87-1735 Miscellaneous Notes* Telephone Encounter - Bernice Sidhu MA - 06/28/2024 1:55 PM EDT Gave number he will call and schedule * Telephone Encounter - Kenia Castillo NP - 06/28/2024 1:51 PM EDT Open referral for sleep medicine, did he schedule with Dr. Plascencia in [place]? documented in this [facility]05-16-2025 Telephone encounter Note* Telephone Encounter - Kenia Castillo NP - 06/28/2024 1:51 PM EDT Open referral for sleep medicine, did he schedule with Dr. Plascencia in [place]? [facility] HospitalTagvnqhpgq99-29-0583 Miscellaneous Notes* Telephone Encounter - Rhona Herrera - 05/23/2024 9:52 AM EDT Pt is requesting a cough medicine but does not want the little egg looking. He is not better fromhis visit, the cough is keeping him up and he needs something to get rid [facility] it[facility] [place] documented in this encounterHermann Area District HospitalJficfczqbd68-00-5935 Telephone encounter Note* Telephone Encounter - Rhona Herrera - 05/23/2024 9:52 AM EDT Pt is requesting a cough medicine but does not want the little egg looking. He is not better fromhis visit, the cough is keeping him up and he needs something to get rid of it. [facility] [place] [facility] HospitalKyogvqpkkh57-67-0762 History of Present illness Narrative* Kenia Castillo [...] cookies lately. Supplemental Information He went to electrical equipment assembler on Monday, who said he looked pretty [...] secretions. Analgesics OTC prn. documented in this encounterHermann Area District HospitalPcpkrnvsrn01-67-8438 History of Present illness Narrative* aJnnet Martinez RN - 02/23/2024 12:42 PM EST [...] included. Mr. Winters Date of : 1950 [id number] Procedure: Cardioversion Pre-operative Diagnosis: Persistent atrial fibrillation, symptomatic Post-operative Diagnosis: Successful cardioversion to NSR with 300J biphasic Anesthesia: General Anesthesia. Provided by our anesthesia team. Procedure: The procedure was done in the Covering Machine Operator. Benefits, risks and alternatives were explained to the patient and he agreed to proceed. Informed consent obtained. A separate informed consent obtained by our anesthesia team. Timeout obtained by the Covering Machine Operator nurse. The defibrillator pads were [...] to continue all other cardiac medications. Ej Fotser MD, MS, F.A.C.CElyria Memorial [facility], [address] [address] , documented in this encounterBon Regency Hospital [facility]01-10-2025 Hospital Discharge instructions* Discharge Instructions* Jannet Martinez, [...] doctor prescribes. Do not take any vitamins, mdpu-nlm-cnchcfx medicines, or herbal products without talking to [...] or uneven pulse. After calling 911, the gum machine operator may tell you to chew [...] Where can you learn more? Go to [email or web address] and sign in to your SpeakingPal account. Enter A617 in the Search Health Information box to learn more about Electrical Cardioversion: What to Expect at Home. If you do not have an account, please click on the Sign Up Now link. [employer]. Care instructions adapted under license by [employer] [facility]. This care instruction is for use with your licensed healthcare professional. If you have questions about amedical condition or this instruction, always ask your healthcare professional. [employer] disclaims any warranty or liability for your use of this information. Content Version: 10.6.520015; Current as of: April 04, 2014 documented in this encounterBon Regency Hospital Company01-07-2025 History of Present illness Narrative* Kenia Castillo NP - 02/20/2024 2:00 PM EST Images from the original note were not included. Zaina Winters is a 73 y.o. male presents with chief complaint of Medicare Annual Wellness Visit Subsequent HPI: HPI Getting an ablation on , having a procedure done by pain management soon sees pain management at [facility]. Send results to Dr. Mata at [facility] Has an appointment with phil tracey in March in [place]. Not using cpap tried different mask couldn't [...] Do not crush, chew, or split. HYDROcodone-acetaminophen ([place]) 5-325 MG tablet 1 tablet, 2 times [...] for independence. Livingwill and durable power of smoking pipes cleaner reviewed. Updated patient problem list and reviewed all current medications with patient. Given time to ask questions. Mixed hyperlipidemia (CMS/[facility]) - Lipid panel; Future -On a statin Primary hypertension (CMS/[facility]) - Comprehensive metabolic panel; Future - Lipid [...] complication, without long-term current use of insulin (CMS/[facility]) - Hemoglobin A1c; Future - Comprehensive metabolic [...] after eating. [employer] HOB. Paroxysmal atrial fibrillation ([facility]) -On eliquis, scheduled for ablation later [...] Morbid (severe) obesity due to excess calories ([facility]) Colon cancer screening declined Screening PSA (prostate specific antigen) - PSA; Future Benign prostatic hyperplasia with lower urinary tract symptoms, symptom details unspecified -Stable Body mass index (BMI) 40.0-44.9, adult ([facility]) documented in this encounterHermann Area District HospitalUhtpzeotur68-84-7708 Telephone encounter Note* Telephone Encounter - Jeannine Evangelista NP - 01/01/2024 9:36 AM EST Sent prescription. [facility] HospitalOjoofvqadt28-40-5730 Miscellaneous Notes* Telephone Encounter - Jeannine Evangelista [...] [facility], please resend to [facility] in [place]. I believe the mariela tolbert weresent. * Telephone Encounter - Taryn Anderson - 12/28/2023 10:08 AM EST Patient was seen on 12/25 and has been taking otc cough syrup and it is not helping at all. He is requesting a prescription for cough syrup sent to [facility] in [place]. Ty documented in this [facility]11-18-2024 History of Present illness Narrative* Jeannine Evangelista NP - 01/01/2024 9:35 AM EST Prescription sent documented in this [facility]11-15-2024 Telephone encounter Note* Telephone Encounter - Kenia Castillo NP - 12/29/2023 2:42 PM EST I sent in a few days of steroids to help with cough [facility] Cmurorhujk28-64-7660 Miscellaneous Notes* Telephone Encounter - Kenia Castillo [...] [facility] [place] documented in this encounterHermann Area District HospitalRrfryzkyzw38-07-1682 Telephone encounter Note* Telephone Encounter - Leonora Deras - 12/29/2023 1:38 PM EST Can something else be sent in for pt to help with cough other than tesslon perles? Please contact pt with response. [facility] [place] NOMLiberty HospitalTfpwfzskoc72-29-7820 Telephone encounter Note* Telephone Encounter - Rhona Herrera - 12/29/2023 12:10 PM EST Informed patient that [facility] and he states I told her those don't work for me He wants you to send something stronger. [facility] HospitalClxgqdietx77-78-9396 Telephone encounter Note* Telephone Encounter - Jeannine Evangelista NP - 12/29/2023 11:53 AM EST [facility] to [facility] HospitalVvylotpzcu96-31-1128 History of Present illness Narrative* Jeannine Evangelista NP - 12/29/2023 11:52 AM EST Prescription sent documented in this encounterHermann Area District HospitalHghissbvvl16-42-3973 Note* Addendum Note - Rhona Herrera - 12/29/2023 10:45 AM ESTAddended by: RHONA HERRERA on: 12/29/2023 10:45 AM Modules accepted: Orders [place] [address]Zttoomxbtm25-26-3224 Telephone encounter Note* Telephone Encounter - Rhona Herrera - 12/29/2023 10:43 AM EST RX [facility], please resend to [facility] in [place]. I believe the mariela tolbert weresent. [place] [address]Sfhedfydao24-34-4420 History of Present illness Narrative* Jeannine Evangelista NP - 12/28/2023 1:02 PM EST Prescription sent documented in this encounterHermann Area District HospitalWseassyuxd41-86-3000 Telephone encounter Note* Telephone Encounter - Taryn Anderson - 12/28/2023 10:08 AM EST Patient was seen on 12/25 and has been taking otc cough syrup and it is not helping at all. He is requesting a prescription for cough syrup sent to [facility] in [place]. [place] [address]Eamntqllxn40-33-0219 History of Present illness Narrative* Jeannine Evangelista [...] mg, Oral, 3 times daily PRN HYDROcodone-acetaminophen ([place]) 5-325 MG tablet 1 tablet, Oral, 2 [...] attention if symptoms worsen documented in this encounterHermann Area District HospitalYtpbpuiswj45-94-1954 Telephone encounter Note* Telephone Encounter - Mack Bray - 12/21/2023 9:43 AM EST Quentin called - was in for ear infection etc last week . Now he hs it - he's asking if you would just send in what you gave her . [facility] [id number] Miscellaneous Notes* Telephone Encounter - Mack Bray - 12/21/2023 9:43 AM EST Quentin called - was in for ear infection etc last week . Now he hs it - he's asking if you would just send in what you gave her . documented in this encounterNOMS [id number] History of Present illness Narrative* Arianna Lou, [...] a day as needed, Disp:, Rfl: HYDROcodone-acetaminophen ([place]) 5-325 MG tablet, Take 1 tablet by [...] understanding. Arianna Lou DPM documented in this [facility]10-02-2024 Instructions* Patient Instructions* Arianna Lou DPM - 11/15/2023 1:00 PM EDT As noted documented in this [facility]09-09-2024 Telephone encounter Note* Telephone Encounter - Chrystal Russell MA - 10/23/2023 6:13 PM EDT Patient is calling for refills. He is asking for [facility] day supply [facility] HospitalWynenngncb37-50-5750 Miscellaneous Notes* Telephone Encounter - Chrystal Russell MA - 10/23/2023 6:13 PM EDT Patient is calling for refills. He is asking for 90 day supply [facility] to [facility]alin documented in this [facility]08-28-2024 History of Present illness Narrative* Kenia Castillo NP - 10/11/2023 9:00 AM EDT Images from the original note were not included. Zaina Winters is a 73 y.o. male presents with chief complaint of Establish Care HPI: Patient fell and hit his face 8 months ago and banged his teeth. 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 07/18/2022 New onset a-fib ([facility]) Paroxysmal atrial fibrillation ([facility]) 12/17/2019 Peripheral edema 11/28/2018 Polio 07/29/2015 [id number] condition 04/27/2020 Primary osteoarthritis involving multiple joints 10/04/2022 Psoriasis ([facility]) 06/26/2017 PVD (peripheral vascular disease) ([facility]) 08/30/2021 Restless legs Restless legs syndrome [...] he gets surgery date. documented in this encounterHermann Area District HospitalFgbnpzkwek38-06-9963 Telephone encounter Note* Telephone Encounter - Marjorie Thayer - 03/30/2023 1:17 PM EST 04/05 @ 1:00 pm . [facility] [id number] Miscellaneous Notes* Telephone Encounter - Marjorie Thayer [...] be ok to schedule? documented in this encounterHermann Area District HospitalQcslxstcdg34-95-2370 Telephone encounter Note* Telephone Encounter - Marjorie Thayer - 03/30/2023 12:51 PM EST So that reference # does nothing? His eval was 2/8, and is it noted per [facility] to continue, auth is needed? [facility] [id number] Telephone encounter Note* Telephone Encounter - Marjorie Thayer - 03/30/2023 11:49 AM EST Would it be ok to schedule? [facility] HospitalEgdlgxjfli41-72-7609 Telephone encounter Note* Telephone Encounter - Marjorie Thayer - 03/29/2023 10:40 AM EST Pt cx PT out. [facility] HospitalEvjijszrhu61-37-3224 Miscellaneous Notes* Telephone Encounter - Marjoire Thayer - 03/29/2023 10:40 AM EST Pt cx PT out. documented in this encounterHermann Area District HospitalFwpehrdfqc26-03-1614 Note [id number]#1.00[facility]08-08-2022 [id number]#1.00[facility] 09-18-2021 NoteEducation Materials POST OPERATIVE TOTAL KNEE/HIP [...] #8 follow up in office with physician fast food sales assistant Justo Redd as scheduled #9 N[facility] [...] proceed to the nearest hospital's emergency services department.[facility] CenterZeginigk35-47-7109 Note [facility] 2[facility] Clinical Discharge Summary PERSON INFORMATION Name ZAINA WINTERS Age 70 Years 1950 Sex MALE Language Sami PCP Tonja ERNANDEZ, Jeannine Alfonso Marital Status Med Service Observation Acct# Arrival 09/17/2021 08:03:00 Visit Reason SURGERY-RIGHT TOTAL KNEE (GABRIELA) Acuity LOS 000 26:09 Address: [address] [place] [address] Comment: PROVIDER INFORMATION VITALS INFORMATION Vital Sign [...] range between ( 1.3 and 2.9 ) [place] Abs#: 1.3 x103/mcL -- Normal range between ( 0.0 and 0.8 ) Auto Baso %: 0.0 % -- Normal range between ( 0.2 and 2.0 ) Auto [place] %: 9 % -- Normal range between [...] Follow up: With: Address: When: Trenton Tramaine [address] [place] [address] Business (1) 10/01/2021 11:00 AM DIAGNOSIS Acute pain of right knee Comment: PHYS DOC [facility]01-20-2022 Note [id number]#1.00[facility]01-20-2022 [id number]#1.00[facility] 03-04-2021 [id number]#1.00[facility]01-19-2022 NoteEducation Materials POST OPERATIVE TOTAL KNEE/HIP DISCHARGE [...] #8 follow up in office with physician fast food sales assistant Justo Redd as scheduled #9 NOMS [...] proceed to the nearest hospital's emergency services department.[facility] CenterNogzlocb51-26-9025 Note [facility] 2SOUT Clinical Discharge Summary PERSON INFORMATION Name ZAINA WINTERS Age 70 Years 1950 Sex MALE Language Sami PCP Tonja ERNANDEZ, Jeannine Alfonso Marital Status Med Service Observation Acct# Arrival 03/02/2021 05:52:00 Visit Reason SURGERY - LEFT TOTAL KNEE POSSIBLE STEMS AND AUGS - NEX GEN TIBIA Acuity LOS 000 26:57 Address: [facility] [address] Comment: PROVIDER INFORMATION VITALS INFORMATION Vital Sign [...] range between ( 1.3 and 2.9 ) [place] Abs#: 1.9 x103/mcL -- Normal range between ( 0.0 and 0.8 ) Auto Baso %: 0.0 % -- Normal range between ( 0.2 and 2.0 ) Auto [place] %: 10 % -- Normal range between [...] range between ( 74 and 118 ) [facility] Order 03/03/2021 4:47 AM Tube Collected: [...] Follow up: With: Address: When: Trenton Redd [address] [place] [address], [facility] [address] [address] Business (1) 03/15/2021 10:30 AM With: Address: When: Jeannine Evangelista [facility] [place] [address] Business (1) DIAGNOSIS Aftercare following left knee joint rep (more content not included)...[facility] CenterAepkhmyk99-24-3297 History of Present illness Narrative* Debi Lopez - 09/23/2020 11:30 AM EDT Instructed on policies and procedures. documented in [facility]Community [facility] [employer] Work Phone: evaluation note* Diagnosis Persistent atrial fibrillation (HCC) Atrial fibrillation SOB (shortness of breath) Shortness of breath Essential hypertension Unspecified essential hypertension Other specified diabetes mellitus with other specified complication, unspecified whether intermediate teacher insulin use (HCC) Class 2 obesity with body mass index (BMI) of 36.0 to 36.9 in adult, unspecified obesity type, unspecified whether serious comorbidity present Pain in both lower extremities documented in this encounter [facility] [employer] Work Phone: evaluation note* Diagnosis Left thigh pain- Primary Pain in soft tissues of limb Muscle strain of left thigh, subsequent encounter documented in this encounter [facility] HealthcareEvaluation noteNo assessment information availableLicking Memorial Hospital Work Phone: Evaluation note* Diagnosis Dermatophytosis of nail- Primary Dystrophic nail Other specified disease of nail Pain around toenail, right foot Pain around toenail, left foot documented in this encounter [facility] HealthcareEvaluation note* Diagnosis Acute right otitis media- Primary Bronchitis Bronchitis, not specified as acute or chronic documented in this encounter [facility] HealthcareEvaluation note* Diagnosis Bronchitis Bronchitis, not specified as acute or chronic documented in this encounter [facility] HealthcareEvaluation note* Diagnosis Bronchitis- Primary Bronchitis, not specified as acute or chronic documented in this encounter [facility] HealthcareEvaluation note* Diagnosis Bronchitis Bronchitis, not specified as acute or chronic documented in this encounter [facility] HealthcareEvaluation note* Diagnosis Bronchitis- Primary Bronchitis, not specified as acute or chronic documented in this encounter [facility] HealthcareEvaluation note* Diagnosis Dental abscess- Primary Periapical abscess without sinus documented in this encounter [facility] HealthcareEvaluation note* Diagnosis Restless legs syndrome Restless legs syndrome (RLS) documented in this encounter [facility] HealthcareEvaluation note* Diagnosis Paroxysmal atrial fibrillation (CMS/HCC) Atrial fibrillation documented in this encounter [facility] HealthcareEvaluation note* Diagnosis Permanent atrial fibrillation (HCC) Atrial fibrillation Chronic anticoagulation Encounter for long-term (current) use of anticoagulants Essential hypertension Unspecified essential hypertension Type 2 diabetes mellitus with diabetic nephropathy, without long-term current use of insulin (HCC) History of COVID-19 Obesity, Class III, BMI 40-49.9 (morbid obesity) Morbid obesity documented in this encounter [facility]* Diagnosis Permanent atrial fibrillation (HCC) Atrial fibrillation Chronic anticoagulation Encounter for long-term (current) use of anticoagulants Essential hypertension Unspecified essential hypertension Type 2 diabetes mellitus with diabetic nephropathy, without long-term current use of insulin (HCC) History of COVID-19 Obesity, Class III, BMI 40-49.9 (morbid obesity) Morbid obesity documented in this encounter [facility] CenterPurchext [facility] note* Diagnosis Acute cough- Primary documented in this encounter [facility] HealthcareEvaluation note* Diagnosis Type 2 diabetes mellitus with diabetic peripheral angiopathy without gangrene (CMS/HCC) documented in this encounter [facility] HealthcareEvaluation note* Diagnosis Paroxysmal atrial fibrillation (HCC)- Primary Atrial fibrillation PAF (paroxysmal atrial fibrillation) (HCC) Atrial fibrillation documented in this encounter [facility] note* Diagnosis Encounter for wellness examination- Primary Mixed hyperlipidemia (CMS/HCC) Mixed hyperlipidemia Primary hypertension (CMS/HCC) Unspecified essential hypertension Type 2 diabetes mellitus with other specified complication, without long-term current use of insulin ([facility]) Vitamin D deficiency Idiopathic chronic gout [...] unspecified Body mass index (BMI) 40.0-44.9, adult (CMS/[facility]) documented in this encounter [facility] HealthcareEvaluation note* Diagnosis AF (paroxysmal atrial fibrillation) ([facility]) Atrial fibrillation [facility]* Diagnosis Primary hypertension ([facility]) Unspecified essential hypertension documented in this encounter [facility] HealthcareEvaluation note* Diagnosis Type 2 diabetes mellitus without complication, without long-term current use of insulin- Primary Acute bacterial conjunctivitis of both eyes Non-recurrent acute suppurative otitis media of left ear without spontaneous rupture of tympanic membrane documented in this encounter [facility] HealthcareEvaluation note* Diagnosis Acute cough- Primary documented in this encounter [facility] HealthcareEvaluation note* Diagnosis Paroxysmal atrial fibrillation ([facility]) Atrial fibrillation documented in this encounter [facility] note* Diagnosis Localized edema- Primary Edema Restless legs syndrome Restless legs syndrome (RLS) POOL (obstructive sleep apnea) Obstructive sleep apnea (adult) (pediatric) Polio Acute unspecified poliomyelitis, unspecified poliovirus Primary hypertension ([facility]/HCC) Unspecified essential hypertension Benign prostatic hyperplasia with nocturia Gastroesophageal reflux disease without esophagitis Esophageal reflux Type 2 diabetes mellitus with diabetic peripheral angiopathy without gangrene ([facility]/HCC) Other hyperlipidemia Paroxysmal atrial fibrillation ([facility]/HCC) Atrial fibrillation Insomnia, unspecified type Lumbar radiculopathy Thoracic or lumbosacral neuritis or radiculitis, unspecified 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 documented in this encounter [facility] HealthcareEvaluation note* Diagnosis Decreased renal function [...] Morbid (severe) obesity due to excess calories ([facility]-HCC) documented in this encounter [facility] HealthcareEvaluation note* Diagnosis Spinal stenosis, lumbar [...] tissues of limb documented in this encounter [facility] HealthcareEvaluation note* Diagnosis Spinal stenosis, lumbar region with neurogenic claudication- Primary Bilateral leg weakness Muscle weakness (generalized) Left thigh pain Pain in soft tissues of limb documented in this encounter [facility] HealthcareReason for visit Narrative* Consultation (Routine) - Pending ReviewSpecialtyDiagnoses / ProceduresReferred By ContactReferred To Contact Physical Therapy Diagnoses Left thigh pain Muscle strain of left thigh, subsequent encounter Procedures CO OFFICE/OUTPATIENT [facility] 60 MINUTES Trenton Redd, [place] [address] [facility] [address] [place] [address] Alex Rico, PT [address] [address] Referral IDStatusReasonStart DateExpiration DateVisits RequestedVisits [id number] Review Consult and Treat / [facility] HealthcareReason for visit Narrative* Rehabilitation - Outpatient (Routine) - Pending ReviewSpecialtyDiagnoses / ProceduresReferred By ContactReferred To ContactPhysical Therapy Diagnoses Spinal stenosis, lumbar region with neurogenic claudication Bilateral Leg Weakness Procedures CO PHYSICAL THERAPY EVALUATION LOW COMPLEX 20 MINS CO OFFICE/OUTPATIENT NEW HIGH MDM 60 MINUTES Alley Richard NP [address] [place] [address] Phone: tel: fax: [facility] [address] [address] Phone: tel: fax: Referral IDStatusReasonStart DateExpiration DateVisits RequestedVisits [id number] Review/ [facility] HealthcareReason for visit Narrative* Rehabilitation - Outpatient (Routine) - AuthorizedSpecialtyDiagnoses / ProceduresReferred By ContactReferred To ContactPhysical Therapy Diagnoses Spinal stenosis, lumbar region with neurogenic claudication Bilateral Leg Weakness Procedures CO PHYSICAL THERAPY EVALUATION LOW COMPLEX 20 MINS CO OFFICE/OUTPATIENT NEW HIGH MDM 60 MINUTES Alley Richard NP [address] [place] [address] Phone: tel: fax: [facility] [address] [address] Phone: tel: fax: Referral IDStatusReasonStart DateExpiration DateVisits RequestedVisits [id number]/18/20259/ [facility] Summary Purpose Family History No [...] May 04, 2 024 4:36pm Date ActivatedDate TemduvfzxieZitcgwqc70/30/2020 7:58 AM02/12/2020 11:52 AM Reason for Referral StatusReasonSpecialtyDiagnoses / ProceduresReferred By ContactReferred To ContactClosedCardiology / Echocardiography Diagnoses Persistent atrial fibrillation (HCC) Essential hypertension SOB (shortness of breath) Fluid retention Other specified diabetes mellitus with other specified complication, unspecified whether senior care insulin use (HCC) Class 2 obesity with body mass index (BMI) of 36.0 to 36.9 in adult, unspecified obesity type, unspecified whether serious comorbidity present Procedures ECHO Complete 2D W Doppler W Color Ej Foster MD [address] [place] [id number] [facility] Echo [address] [place] [address] StatusReasonSpecialtyDiagnoses / ProceduresReferred By ContactReferred To ContactClosedRadiology Diagnoses Pain in both lower extremities PVD (peripheral vascular disease) ([facility]) Procedures VL LOWER EXTREMITY ARTERIAL SEGMENTAL PRESSURES W PPG Ej Foster MD [address] [place] [address] [place] [address] StatusReasonSpecialtyDiagnoses / ProceduresReferred By ContactReferred To ContactClosedCardiology Diagnoses Persistent atrial fibrillation (HCC) SOB (shortness of breath) Essential hypertension Other specified diabetes mellitus with other specified complication, unspecified whether intermediate teacher insulin use (HCC) Class 2 obesity with body mass index (BMI) of 36.0 to 36.9 in adult, unspecified obesity type, unspecified whether serious comorbidity present Pain in both lower extremities Procedures Echo 2D w doppler w color complete Ej Foster MD [address] [place] [address] [place] [address] SpecialtyDiagnoses / ProceduresReferred By ContactReferred To Contact Diagnoses Permanent atrial fibrillation (HCC) Chronic anticoagulation Essential hypertension Type 2 diabetes mellitus with diabetic nephropathy, without long-term current use of insulin (HCC) History of COVID-19 Obesity, Class III, BMI 40-49.9 (morbid obesity) Procedures Echo (TTE) complete (PRN contrast/bubble/strain/3D) CO ECHO TTHRC R-T 2D W/WOM-MODE COMPL SPEC&COLR D CO TTE W OR WO FOL WCON,DOPPLER Shalini Morrow PA-C [address] [place] [address] Referral IDStatusReasonStart DateExpiration DateVisits RequestedVisits [id number] Required - [id number] / ProceduresReferred By ContactReferred To Contact Diagnoses Permanent atrial fibrillation (HCC) Chronic anticoagulation Essential hypertension Type 2 diabetes mellitus with diabetic nephropathy, without long-term current use of insulin (HCC) History of COVID-19 Obesity, Class III, BMI 40-49.9 (morbid obesity) Procedures Extended cardiac holter monitor (3 days-14 day) CO EXTERNAL ECG REC>48HR<7D REVIEW & INTERPRETATION CO EXTERNAL ECG REC>48HR<7D RECORDING CO EXTERNAL ECG REC>7D<15D RECORDING CO EXTERNAL ECG REC>7D<15D REVIEW & INTERPRETATION Shalini Morrow PA-C [address] [place] [address] Referral IDStatusReasonStart DateExpiration DateVisits RequestedVisits [id number] Required - [id number] / ProceduresReferred By ContactReferred To ContactCardiology Diagnoses PAF (paroxysmal atrial fibrillation) (HCC) Procedures Cardioversion external HC CARDIOVERSION Ej Foster MD [address] [place] [address] [facility] [place] [address] Referral [facility]Status[facility] DateExpiration DateVisits RequestedVisits [id number] Required - [id number] / ProceduresReferred By ContactReferred To ContactCardiology Diagnoses AF (paroxysmal atrial fibrillation) (HCC) Procedures Extended cardiac holter monitor (3 days-14 day) CO EXTERNAL ECG REC>48HR<7D REVIEW & INTERPRETATION CO EXTERNAL ECG REC>48HR<7D RECORDING CO EXTERNAL ECG REC>7D<15D RECORDING CO EXTERNAL ECG REC>7D<15D REVIEW & INTERPRETATION Ej Foster MD [address] [place] [address] [place] [address] Referral IDStatusReB[facility]ock [facility] DateExpiration DateVisits RequestedVisits [id number]/13/20251/ History of Present Illness * Nini Todd - 01/22/2020 11:30 AM EST Explained policies and procedures of an echocardiogram/Doppler study. documented in this encounter* Arianna Allen RN - 02/12/2020 9:42 AM EST Internet Marketing Assistant reviewed discharge instructions with patient and spouse. Both verbalized understanding. Denies questions. Copy of discharge instructions given to patient. documented in this encounter Assessments Diagnosis Persistent atrial fibrillation (HCC) Atrial fibrillation Essential hypertension Unspecified essential hypertension SOB (shortness of breath) Shortness of breath Fluid retention Other fluid overload Other specified diabetes mellitus with other specified complication, unspecified whether senior care insulin use ([facility]) Class 2 obesity with body mass index (BMI) of 36.0 to 36.9 in adult, unspecified obesity type, unspecified whether serious comorbidity present Diagnosis Persistent atrial fibrillation (HCC) Atrial fibrillation Essential hypertension Unspecified essential hypertension SOB (shortness of breath) Shortness of breath Fluid retention Other fluid overload Other specified diabetes mellitus with other specified complication, unspecified whether intermediate teacher insulin use (HCC) Class 2 obesity with [...] with other specified complication, unspecified whether intermediate teacher insulin use (HCC) Class 2 obesity with [...] doctor prescribes. Do not take any vitamins, domc-goz-uknbjpp medicines, or herbal products without talking to [...] or uneven pulse. After calling 911, the gum machine operator may tell you to chew [...] Where can you learn more? Go to [email or web address] and sign in to your [employer] account. Enter A617 in the Search Health Information box to learn more about Electrical Cardioversion: What to Expect at Home. If you do not have an account, please click on the Sign Up Now link. [phone] [employer]. Care instructions adapted under license by [employer] [facility]. This care instruction is for use with your licensed healthcare professional. If you have questions about amedical condition or this instruction, always ask your healthcare professional. [employer] disclaims any warranty or liability for your use of this information. Content Version: 10.6.262751; Current as of: April 04, 2014 documented in this encounter Chief Complaint and Reason for Visit Chief Complaint M54.16 Additional Source Comments (unrecognized sect ion and content) No Status Records FoundNo Status Records FoundNo Status Records FoundNo Status Records FoundNo Status Records FoundNo Status Records FoundNo Status Records FoundNo Status Records Found INFORMATION SOURCE (unrecogn ized section and content) DATE CREATED AUTHOR 12/21/2019 [facility] DATE CREATED AUTHOR AUTHOR'S ORGANIZ ATION 06/12/2021 [facility] [employer] DATE CREATED AUTHOR AUTHOR'S ORGANIZ ATION 10/25/2021 [facility] DATE CREATED AUTHOR AUTHOR'S ORGANIZ ATION 05/27/2023 [facility] DATE CREATED AUTHOR AUTHOR'S ORGANIZ ATION 07/02/2023 [facility] DATE CREATED AUTHOR AUTHOR'S ORGANIZ ATION 02/28/2024 [facility] DATE CREATED AUTHOR AUTHOR'S ORGANIZ ATION 10/08/2024 [facility] DATE CREATED AUTHOR AUTHOR'S ORGANIZ ATION 11/23/2024 [facility] Reason for Visit (unrecogniz ed section and content) StatusReasonSpecialtyDiagnoses / ProceduresReferred By ContactReferred To ContactClosedCardiology / Echocardiography Diagnoses Persistent atrial fibrillation (HCC) Essential hypertension SOB (shortness of breath) Fluid retention Other specified diabetes mellitus with other specified complication, unspecified whether senior care insulin use (HCC) Class 2 obesity with body mass index (BMI) of 36.0 to 36.9 in adult, unspecified obesity type, unspecified whether serious comorbidity present Procedures ECHO Complete 2D W Doppler W Color Ej Foster MD [address] [place] [address] [place] [address] [facility] Echo [address] [place] [address] [place] [address] StatusReasonSpecialtyDiagnoses / ProceduresReferred By ContactReferred To ContactClosedRadiology Diagnoses Pain in both lower extremities PVD (peripheral vascular disease) (HCC) Procedures VL LOWER EXTREMITY ARTERIAL SEGMENTAL PRESSURES W PPG Ej Foster MD [address] [place] [address] [place] [address] StatusReasonSpecialtyDiagnoses / ProceduresReferred By ContactReferred To ContactAuthorizedCardiology Diagnoses Essential hypertension Persistent atrial fibrillation (HCC) SOB (shortness of breath) Other specified diabetes mellitus with other specified complication, unspecified whether senior care insulin use (HCC) COVID-19 Procedures Referral to Cardiac Cath CO CARDIOVERSION ELECTIVE ARRHYTHMIA EXTERNAL Ej Foster MD [address] [place] [address] [place] [address] [place] [address] StatusReasonSpecialtyDiagnoses / ProceduresReferred By ContactReferred To ContactClosedCardiology Diagnoses Persistent atrial fibrillation (HCC) SOB (shortness of breath) Essential hypertension Other specified diabetes mellitus with other specified complication, unspecified whether senior care insulin use (HCC) Class 2 obesity with body mass index (BMI) of 36.0 to 36.9 in adult, unspecified obesity type, unspecified whether serious comorbidity present Pain in both lower extremities Procedures Echo 2D w doppler w color complete Ej Foster MD [address] [place] [address] [place] [address] ReasonOnset DateCommentsre: PT today4Called and noted auth is still pending for PT and in need to cx today; I informed I will keep up-to-date come his next on 03/30.ReasonOnset DateCommentsre: Dfqnmxinp06/14/2024He called re: coverage w/ insurance noted pending [...] noting he had just gotten verification per [facility] that if referring provider refers fortherapy then PT would be covered. He gave a reference # [id number].ReasonCommentsToenail CarePCP: Kenia Cordonjtvictor manuel 10/11/23, A1C: 6.2, BS: 107ReasonCommentsCoughReasonCommentsEstablish CareReason CommentsMed RefillSpecialtyDiagnoses / ProceduresReferred By ContactReferred To Contact Diagnoses Permanent atrial fibrillation (HCC) Chronic anticoagulation Essential hypertension Type 2 diabetes mellitus with diabetic nephropathy, without long-term current use of insulin (HCC) History of COVID-19 Obesity, Class III, BMI 40-49.9 (morbid obesity) Procedures Echo (TTE) complete (PRN contrast/bubble/strain/3D) CO ECHO TTHRC R-T 2D W/WOM-MODE COMPL SPEC&COLR D CO TTE W OR WO FOL WCON,DOPPLER Shalini Morrow PA-C [address] [place] [address] Referral IDStatusReasonStart DateExpiration DateVisits RequestedVisits [id number] Required - [id number] / ProceduresReferred By ContactReferred To Contact Diagnoses Permanent atrial fibrillation (HCC) Chronic anticoagulation Essential hypertension Type 2 diabetes mellitus with diabetic nephropathy, without long-term current use of insulin (HCC) History of COVID-19 Obesity, Class III, BMI 40-49.9 (morbid obesity) Procedures Extended cardiac holter monitor (3 days-14 day) CO EXTERNAL ECG REC>48HR<7D REVIEW & INTERPRETATION CO EXTERNAL ECG REC>48HR<7D RECORDING CO EXTERNAL ECG REC>7D<15D RECORDING CO EXTERNAL ECG REC>7D<15D REVIEW & INTERPRETATION Shalini Morrow PA-C [address] [place] [address] [facility] DateExpiration DateVisits RequestedVisits [id number] Required - [id number] / ProceduresReferred By ContactReferred To ContactCardiology Diagnoses PAF (paroxysmal atrial fibrillation) ([facility]) Procedures Cardioversion external HC CARDIOVERSION Ej Foster MD [address] [place] [address] [place] [address] [facility] DateExpiration DateVisits RequestedVisits [id number] Required - [id number] Annual Wellness Visit SubsequentSpecialtyDiagnoses / ProceduresReferred By ContactReferred To ContactCardiology Diagnoses AF (paroxysmal atrial fibrillation) (HCC) Procedures Extended cardiac holter monitor (3 days-14 day) CO EXTERNAL ECG REC>48HR<7D REVIEW & INTERPRETATION CO EXTERNAL ECG REC>48HR<7D RECORDING CO EXTERNAL ECG REC>7D<15D RECORDING CO EXTERNAL ECG REC>7D<15D REVIEW & INTERPRETATION Ej Foster MD [address] [place] [address] [place] [address] Referral IDStaMem[facility] DateExpiration DateVisits RequestedVisits [id number] CommentsFoot SwellingReasonOnset DateCommentsPT Initial Eval08/15/2024Spinal Stenosis/ b/l leg weaknessCall Back5Call Back x208/26/2024He contacted and scheduled 08/30/24 for PT Eval w/ Leroy Argueta PT.ReasonCommentsDM Foot CareEstablished patient presents today for routine diabetic nail care. PCP: Kenia Castillo LV 07/09/24, A1C: 6.3 (05/2024), BS: 99ReasonCommentsDiabetes Care Teams (unrecognized sec tion and content) Team MemberRelationshipSpecialtyStart DateEnd Bernie Adam MD [address] [place] [address] PCP - [facility]07/07/22 Bernie Adam MD [address] [place] [address] PCP - GeneralFamily Medicine08/01/22Team MemberRelationshipSpecialtyStart End Bernie Adam MD [address] [place] [address] PCP - [facility]07/07/22 Bernie Adam MD [address] [place] [address] PCP - GeneralFamily Medicine08/01/22Team MemberRelationshipSpecialtyStart End Date Bernie Adam MD [address] [place] [address] PCP - [facility]07/07/22 Bernie Adam MD [address] [place] [address] [facility] - [facility]08/01/22Team MemberRelationshipSpecialtyStart DateEnd Date Bernie Adam MD [address] [place] [address] PCP - [facility]07/07/22 Bernie Adam MD [address] [place] [address] PCP - [facility]08/01/22Team MemberRelationshipSpecialtyStart DateEnd Date Bernie Adam MD [address] [place] [address] PCP - [facility]07/07/22 Bernie Adam MD [address] [place] [address] PCP - [facility]08/01/22 Team Status: Active Member Role [...] Bernie Adam MD [address] [place] [address] PCP - GeneralFamily Medicine08/01/22 Bernie Adam MD [address] [place] [address] PCP - [facility]06/14/23Te MemberRelationshipSpecialtyStart DateEnd Bernie Adam MD [address] [place] [address] [facility] - [facility]08/01/22 Bernie Adam MD [address] [place] [address] PCP - [facility]06/14/23Te MemberRelationshipSpecialtyStart End Bernie Adam MD [address] [place] [address] [facility] - [facility]08/01/22 Bernie Adam MD [address] [place] [address] PCP - [facility]06/14/23Te MemberRelationshipSpecialtyStart DateEnd Bernie Adam MD [address] [place] [address] [facility] - [facility]08/01/22 Bernie Adam MD [address] [place] [address] PCP - [facility]06/14/23Team MemberRelationshipSpecialtyStart DateEnd Date Bernie Adam MD [address] [place] [address] PCP - [facility] Medicine08/01/22 Bernie Adam MD [address] [place] [address] PCP - [facility]06/14/23Team MemberRelationshipSpecialtyStart DateEnd Date Bernie Adam MD [address] [place] [address] PCP - [facility]08/01/22 Bernie Adam MD [address] [place] [address] PCP - [facility]06/14/23Team MemberRelationshipSpecialtyStart DateEnd Date Bernie Adam MD [address] [place] [address] PCP - [facility]08/01/22 Bernie Adam MD [address] [place] [address] PCP - [facility]06/14/23Team MemberRelationshipSpecialtyStart DateEnd Date Bernie Adam MD [address] [place] [address] PCP - [facility]08/01/22 Bernie Adam MD [address] [place] [address] PCP - O [facility]06/14/23Team MemberRelationshipSpecialtyStart DateEnd Date Bernie Adam MD [address] [place] [address] PCP - GeneralFamily Medicine08/01/22 Bernie Adam MD [address] [place] [address] PCP - [facility]06/14/23Team MemberRelationshipSpecialtyStart DateEnd Date Bernie Adam MD [address] [place] [address] [facility] - [facility] Bernie Adam MD [address] [place] [address] PCP - [facility]06/14/23Team MemberRelationshipSpecialtyStart DateEnd Date Jeannine Evangelista APRN - DIALYSIS REGISTERED NURSE [address] [place] [address] PCP - GeneralNurse Practitioner Ifujoy56/17/20Team MemberRelationshipSpecialty Start DateEnd Date Jeannine Evangelista DRILLING ENGINEER - DIALYSIS REGISTERED NURSE [address] [place] [address] PCP - GeneralNurse Practitioner Aawbhb50/17/20Team MemberRelationshipSpecialty Start DateEnd Date Bernie Adam MD [address] [place] [address] PCP - GeneralFamily Medicine08/01/22 Bernie Adam MD [address] [place] [address] PCP - [facility]06/14/23Team MemberRelationshipSpecialtyStart DateEnd Date Jeannine Evangelista, DRILLING ENGINEER - DIALYSIS REGISTERED NURSE [address] [place] [address] PCP - GeneralNurse Practitioner Pziins77/17/20Team MemberRelationshipSpecialty Start DateEnd Date Bernie Adam MD [address] [place] [address] PCP - GeneralFamily Medicine08/01/22 Bernie Adam MD [address] [place] [address] PCP - [facility]06/14/23Team MemberRelationshipSpecialtyStart DateEnd Date Jeannine Evangelista, DRILLING ENGINEER - DIALYSIS REGISTERED NURSE [address] [place] [address] PCP - GeneralNurse Practitioner Rkjann61/17/20Team MemberRelationshipSpecialty Start DateEnd Date Bernie Adam MD [address] [place] [address] PCP - GeneralFamily Medicine08/01/22 Bernie Adam MD [address] [place] [address] PCP - [facility]06/14/23Team MemberRelationshipSpecialtyStart DateEnd Date Bernie Adam MD [address] [place] [address] PCP - GeneralFamily Medicine08/01/22Team MemberRelationshipSpecialtyStart DateEnd Date Bernie Adam MD [address] [place] [address] PCP - GeneralFamily Medicine08/01/22Team MemberRelationshipSpecialtyStart DateEnd Date Bernie Adam MD [address] [place] [address] PCP - GeneralFamily Medicine08/01/22Team MemberRelationshipSpecialtyStart DateEnd Date Bernie Adam MD [address] [place] [address] PCP - GeneralFamily Medicine08/01/22Team MemberRelationshipSpecialtyStart DateEnd Date Bernie Adam MD [address] [place] [address] PCP - GeneralFamily Medicine08/01/22Team MemberRelationshipSpecialtyStart DateEnd Date Bernie Adam MD [address] [place] [address] PCP - GeneralFamily Medicine08/01/22Team MemberRelationshipSpecialtyStart DateEnd Date Bernie Adam MD [address] [place] [address] PCP - GeneralFamily Medicine08/01/22Team MemberRelationshipSpecialtyStart DateEnd Date Bernie Adam MD [address] [place] [address] PCP - GeneralFamily Medicine08/01/22Team MemberRelationshipSpecialtyStart DateEnd Date Bernie Adam MD [address] [place] [address] PCP - GeneralFamily Medicine08/01/22Team MemberRelationshipSpecialtyStart DateEnd Date Bernie Adam MD [address] [place] [address] PCP - GeneralFamily Medicine08/01/22Team MemberRelationshipSpecialtyStart DateEnd Date Bernie Adam MD [address] [place] [address] PCP - GeneralFamily Medicine08/01/22Team MemberRelationshipSpecialtyStart DateEnd Date Bernie Adam MD [address] [place] [address] PCP - GeneralFamily Medicine08/01/22Team MemberRelationshipSpecialtyStart DateEnd Date Bernie Adam MD [address] [place] [address] PCP - GeneralFamily Medicine08/01/22Team MemberRelationshipSpecialtyStart DateEnd Date Bernie Adam MD [address] [place] [address] PCP - GeneralFamily Medicine08/01/22Team MemberRelationshipSpecialtyStart DateEnd Date Bernie Adam MD [address] [place] [address] PCP - GeneralFamily Medicine08/01/22Team MemberRelationshipSpecialtyStart DateEnd Date Bernie Adam MD [address] [place] [address] PCP - GeneralFamily Medicine08/01/22Team MemberRelationshipSpecialtyStart DateEnd Date Bernie Adam MD [address] [place] [address] PCP - GeneralFamily Medicine08/01/22Team MemberRelationshipSpecialtyStart DateEnd Date Bernie Adam MD [address] [place] [address] PCP - GeneralFamily Medicine08/01/22Team MemberRelationshipSpecialtyStart DateEnd Date Bernie Adam MD [address] [place] [address] PCP - GeneralFamily Medicine08/01/22Team MemberRelationshipSpecialtyStart DateEnd Date Bernie Adam MD [address] [place] [address] PCP - GeneralFamily Medicine08/01/22Team MemberRelationshipSpecialtyStart DateEnd Date Bernie Adam MD [address] [place] [address] PCP - GeneralFamily Medicine08/01/22Team MemberRelationshipSpecialtyStart DateEnd Date Bernie Adam MD [address] [place] [address] PCP - GeneralFamily Medicine08/01/22 Goals (unrecognized section [...] BE BASED ON THE PRIMARY CLINICAL RECORDS. [facility] [employer] P[employer], [employer] [facility]. provides no warranty or guarantee of the accuracy or completeness of information in this document.
== END 2025-02-12 14:01 | disposition home or self-care (01) ==
LOC: PM 02-17 12:17
PROVIDERS: Visit Provider Nurse Practitioner
DX: M16.12 Unilateral primary osteoarthritis, left hip (principal); M48.062 Spinal stenosis, lumbar region with neurogenic claudication; G57.12 Meralgia paresthetica, left lower limb; Z79.891 Long term (current) use of opiate analgesic
CPT/HCPCS: G0463